=== PATIENT | female | born 2000 | race Caucasian/White ===

== ENCOUNTER 2023-05-02 12:34 | Outpatient (OUT) | payer OTHER, SELFPAY ==
--- NOTE | 2023-05-02 12:35 | US_ITS ---
[place] [id number] Patient Name: TEE DESAI MRN: [id number] date: 2000 Sex: F Assigned Patient Location: [facility] Current Patient Location: [facility] Accession/Order Number: [id number] Exam Date: 05/02/2023 12:36 Report Date: 05/02/2023 13:36 At the request of: ELSI LOZANO Procedure: US OB transvaginal EXAMINATION: US OB transvaginal HISTORY: MISSED MENSES COMPARISON: No relevant comparison available. FINDINGS: [place] intrauterine gestation Gestational sac: 3.52 cm, 8 weeks 4 days CRL: 1.74 cm, 8 weeks 1 day Yolk sac: 2.5 mm Heart rate: 167 bpm Uterus is retroverted retroflexed. Area of hyperechogenicity adjacent to the gestational sacr measuring 2.1 x 0.7 cm The ovaries are normal in appearance Cervix: Closed, 4 cm Clinical age: 8 weeks 1 day Clinical MONIQUE: 12/11/2023 Ultrasound age: 8 weeks 1 day Ultrasound MONIQUE: 12/11/2023 US/US OB transvaginal IMPRESSION: Subchorionic hematoma Viable intrauterine gestation measuring 8 weeks 1 day Electronically authenticated by: CHRISTIAN KATE Date: 05/02/2023 13:36
== END 2023-05-02 12:35 | disposition home or self-care (01) ==
LOC: NOMS 12:34
PROVIDERS: Visit Provider Obstetrics & Gynecology
DX: O43.891 Other placental disorders, first trimester (principal); Z3A.08 8 weeks gestation of pregnancy
CPT/HCPCS: 76817

== ENCOUNTER 2023-05-17 13:19 | Outpatient (OUT) | payer OTHER, SELFPAY ==
[2023-05-17 15:00] LABS: Basophils Percent Auto 0.3 % (0.2-2.0); Eosinophils Absolute Auto 0.1 10^3/uL (0.0-0.7); Eosinophils Percent Auto 0.5 % (0.9-7.0); Hematocrit 38.6 % (36.0-48.0); Hemoglobin 12.3 g/dL (12.0-16.0); Immature Granulocytes Abs Auto 0.02 10^3/uL (0.00-0.03); Immature Granulocytes Pct Auto 0.2 % (0.0-0.5); Lymphocytes Absolute Auto 3.1 10^3/uL (1.2-3.8); Lymphocytes Percent Auto 32.8 % (20.5-60.0); Mean Corpuscular HGB Conc 31.9 g/dL (29.9-35.2); Mean Corpuscular Hemoglobin 28.6 pg (26.7-34.0); Mean Corpuscular Volume 89.8 fL (81.0-99.0); Mean Platelet Volume 10.7 fL (9.5-13.5); Monocytes Absolute Auto 0.7 10^3/uL (0.3-0.8); Monocytes Percent Auto 7.7 % (1.7-12.0); Neutrophils Absolute Auto 5.4 10^3/uL (1.4-6.5); Neutrophils Percent Auto 58.5 % (43.0-75.0); Platelet Count 211 10^3/uL (150-450); Red Cell Distribution Width 12.2 % (11.0-15.0); White Blood Count 9.3 10^3/uL (4.0-11.0)
[2023-05-17 15:08] LABS: Thyroid Stimulating Hormone 0.026 uIU/mL (0.358-3.740)
[2023-05-17 15:27] LABS: Estimated Average Glucose 105 mg/dL; Glycohemoglobin A1C 5.3 % (4.5-6.2)
[2023-05-18 08:11] LABS: HIV Ab/p24 Ag Screen Non Reactive (Non Reactive)
[2023-05-18 09:11] LABS: HBsAg Screen Negative (Negative)
[2023-05-18 10:11] LABS: Rapid Plasma Reagin, Quant Non Reactive titer (NonRea<1:1); Rubella Antibodies, IgG 1.61 index (Immune >0.99)
[2023-05-18 13:08] LABS: HCV Ab Non Reactive (Non Reactive)
== END 2023-05-17 13:20 | disposition home or self-care (01) ==
PROVIDERS: Visit Provider Obstetrics & Gynecology
DX: N92.6 Irregular menstruation, unspecified (principal); Z36.0 Encounter for antenatal screening for chromosomal anomalies
CPT/HCPCS: 36415; 83036; 84443; 85025; 86592; 86762; 86803; 86850; 86900; 86901; 87086; 87340; 87389

== ENCOUNTER 2023-05-28 10:04 | Outpatient (OUT) | payer OTHER, SELFPAY ==
--- OUTSIDE RECORDS SUMMARY | 2023-05-28 10:18 | XMS_ITS | CCD ---
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 Name Role Phone NON STAFF Primary Care Provider LAURA Kraft Emergency Provider NICOLE Ricci Emergency Provider DAPHNIE ., DR ALEXANDRE Attending Unavailabl e KARASIK ., DR ALEXANDRE Admitting Unavailabl [facility] Unava ilable KARASIK ., DR ALEXANDRE Consulting Unavailabl e LAVINIA, DR CHRISTIAN Doyle Consulting Unavailable KARASIK ., DR ALEXANDRE Consulting Unavailabl e KARASIK ., DR ALEXANDRE Attending Unavailabl e [facility] Unava ilable KARASIK ., DR ALEXANDRE Admitting Unavailabl e ANGELA SCOTT Consulting Unavailable DINA, DR ANA Dennis Attending Unavailable DINA, DR ANA Dennis Admitting Unavailable [facility] Unava ilable DINA, DR ANA Dennis Consulting Unavailable KILO ., MR CUADRA Consulting Unavailable KARASIK ., DR ALEXANDRE Attending Unavailabl e [facility] Unava ilable KARASIK ., DR ALEXANDRE Admitting Unavailabl e KARASIK ., DR ALEXANDRE Attending Unavailabl e [facility] Unava ilable KARASIK ., DR ALEXANDRE Admitting Unavailabl e KARASIK ., DR ALEXANDRE Consulting Unavailabl e JOANNE HUDSON Consulting Unavailable GAVIN ATKINS Consulting Unavailable [facility] Unava ilable KARASIK ., DR ALEXANDRE Attending Unavailabl e KARASIK ., DR ALEXANDRE Admitting Unavailabl e KARASIK ., DR ALEXANDRE Consulting Unavailabl e KARASIK ., DR ALEXANDRE Attending Unavailabl e KARASIK ., DR ALEXANDRE Admitting Unavailabl e KARASIK ., DR ALEXANDRE Consulting Unavailabl e KARASIK ., DR ALEXANDRE Attending Unavailabl e KARASIK ., DR ALEXANDRE Admitting Unavailabl e [facility], DR CHRISTIAN Doyle Consulting Unavailable KARASIK ., DR ALEXANDRE Attending Unavailabl e [facility] Unava ilable KARASIK ., DR ALEXANDRE Admitting Unavailabl e KARASIK ., DR ALEXANDRE Consulting Unavailabl e ZIEBER, ANGELA Dennis Consulting Unavailable KARASIK ., DR ALEXANDRE Attending Unavailabl e KARASIK ., DR ALEXANDRE Admitting Unavailabl e [facility] Unava ilable KARASIK ., DR ALEXANDRE Consulting Unavailabl e KARASIK ., DR ALEXANDRE Consulting Unavailabl e KARASIK ., DR ALEXANDRE Attending Unavailabl e [facility] Unava ilable KARASIK ., DR ALEXANDRE Admitting Unavailabl e [facility], DR CHRISTIAN Doyle Consulting Unavailable REQUEST, DR TYSON LISTED Consulting Unavaila ble [facility] Primary Care Provider Unavailable Primary Care Provider Unavailabl e Martin PAC Errol N Attending Unavailable Martin PAC, Errol Maldonado Admitting Unavailable Oneil Salomon Admitting Unavaila ble Oneil Salomon Attending Unavaila ble ROBERT MARRERO Primary Care Unavailable Provider, None Primary Care Unavailable Nelson Sharma Admitting Unavailable Nelson Sharma Attending Unavailable Alaina Matta CNM Attending Unavailable Provider, None Primary Care Unavailable Alaina Matta CNM Admitting Unavailable Adamaris Jaeger PA-C Attending Unavailable Provider, None Primary Care Unavailable Heide SANCHEZ, Adamaris E Admitting Unavailable Provider, None Primary Care Unavailable Anusha Palomo Admitting Unavailable Anusha Palomo Attending Unavailable Tom Smith Admitting Unavailab Tom Canas Attending Unavailab le Provider, Unlisted Primary Care Unavailable Yassine Maldonado Admitting Unavailable Yassine Maldonado Attending Unavailable ROBERT MARRERO R Primary Care Unavailable Mamie Moore Admitting Unavailab Mamie Menchaca Attending Unavailab ROBERT Montes De [place] Primary Care Unavailable Yassine Maldonado Admitting Unavailable Yassine Maldonado Attending Unavailable ROBERT MARRERO Primary Care Unavailable DORA JASSO Admitting Unavailable DORA JASSO Attending Unavailable Allergies Allergy Classification Reported Allergen(s) Allergy Type Date of Onset Reaction(s) Facility (1 source) Alfentanil Drug Allergy [facility] Repository (1 source) Azithromycin Drug Allergy [facility] Repository (4 sources) Adhesive agent Propensity to adverse reactions to drug 3 [facility] (6 sources) Azithromycin Drug Allergy 2 [facility] (2 sources) Macrolides And Ketolides Drug Allergy 4 Unknown [facility] (2 sources) Wound Dressing Adhesive Drug Allergy 4 [facility] (1 source) Adhesive bandage; Translations: [Adhesive Bandage] Propensity to adverse reactions (disorder) [facility] Repository (1 source) Azithromycin; Translations: [Zithromax] Drug Allergy [facility] Repository Medications Current Medications Medication Drug Class(es) Dates Sig (Normalized) Sig (Original) [id number] 200 actuat albuterol 0.09 mg/actuat metered dose inhaler (4 sources) beta2-Adrenergic Agonist take 2 puff(s) by inhalation every six hours as needed for wheezing albuterol (PROVENTIL HFA;VENTOLIN HFA) 90 mcg/actuation inhaler Inhale 2 puffs every 6 (six) hours as needed for wheezing. 0 Active amoxicillin 500 mg oral tablet (4 sources) Penicillin-class Antibacterial take 1 tablet by mouth in the morning, then take 1 tablet by mouth at bedtime amoxicillin (AMOXIL) 500 MG tablet Indications: upper respiratory infection Take 1 tablet (500 mg total) by mouth in the morning and 1 tablet (500 mg total) before bedtime. Indications: a common cold. 0 Active busPIRone hydrochloride 10 mg oral tablet (2 sources) busPIRone (Buspa r) 10 MG tablet every 12 (twelve) hours 0 Active doxylamine succinate 25 mg oral tablet (3 sources) Start: 04-05-2023 End: 05-05-2023 take 1 tablet by mouth once daily as needed for nausea doxylamine (UNISOM) 25 mg tablet Indications: Nausea and vomiting during Take 1 tablet (25 mg total) by mouth nightly as needed for sleep or nausea for up to 30 days. 30 tablet 2 04/05/2023 05/05/2023 Active folic acid 1 mg oral tablet (6 sources) Start: 03-06-2023 folic acid (Folvite) 1 MG tablet 0 Refill(s) 0 03/06/2023 Active naproxen 500 mg oral tablet (1 source) Nonsteroidal Anti-inflammatory Drug Start: 05-15-2021 take 1 tablet by mouth twice daily Naproxen (Naprosyn) 500 mg tablet Active 500 MG PO Twice daily May 15, 2021 9:24pm ondansetron 4 mg disintegrating oral tablet (2 sources) Serotonin-3 Receptor Antagonist Start: 04-23-2023 End: 05-23-2023 take 1 tablet by mouth every six hours as needed for nausea and vomiting and nausea and nausea ondansetron ODT (Zofran-ODT) 4 MG disintegrating tablet Indications: Nausea Take 1 tablet (4 mg) by mouth every 6 (six) hours if needed for nausea or vomiting 30 tablet 2 04/23/2023 05/23/2023 Active 25/iron fum/folic/dha (-1 ORAL) (4 sources) 25/iron fum/folic/dha (-1 ORAL) Take by mouth. 0 Active Progesterone 200 MG suppository (2 sources) Start: 05-02-2023 Progesterone 200 MG suppository Indications: H/O miscarriage, currently , first trimester Insert 1 suppository into the vagina at bedtime 30 suppository 3 05/02/2023 Active pyridoxine hydrochloride 25 mg oral tablet (5 sources) Start: 04-05-2023 End: 05-05-2023 take 1 tablet by mouth four times daily at mealtime pyridoxine, vitamin B6, (B-6) 25 mg tablet Indications: Nausea and vomiting during Take 1 tablet (25 mg total) by mouth 4 (four) times a day with meals and nightly for 30 days. 150 tablet 2 04/05/2023 05/05/2023 Active Problems Active Problems Problem Classification Problem Date Documented Da te Episodic/Chronic Menstrual disorders (3 sources) Irregular menstruation, unspecified; Translations: [IRREGULAR MENSTRUATION UNSPECIFIED] Onset: 08-08-2022 Chronic Other complications of ; puerperium affecting management of mother (4 sources) Retained portions of placenta and membranes, without hemorrhage; Translations: [RETAIN PORTION PLCNTA MEMB NO HEMOR] Onset: 06-02-2022 Episodic Other complications of (5 sources) Missed ; Translations: [MISSED ] Onset: 05-17-2022 Episodic Other complications of (1 source) Nausea and vomiting; Translations: [Vomiting of , unspecified] 04-05-2023 Episodic Other and delivery including normal (7 sources) Encounter for supervision of normal , unspecified, first trimester; Translations: [Encounter for supervision of normal , unspecified, second trimester] Onset: 04-19-2022 Episodic Sprains and strains (1 source) Sprain of ankle; Translations: [Sprain of unspecified ligament of unspecified ankle, initial encounter] 07-18-2021 Episodic Superficial injury; contusion (1 source) Contusion of knee; Translations: [Contusion of right knee, initial encounter] 05-15-2021 Episodic Past or Other Problems Problem Classification Problem Date Documented Date Episodic/Chronic Abdominal pain (4 sources) Pelvic and perineal pain; Translations: [PELVIC AND PERINEAL PAIN] Onset: 10-17-2021 Episodic Esophageal disorders (1 source) Gastro-esophageal laceration-hemorrhag e syndrome; Translations: [GASTRO-ESOPHAGEAL LAC-HEMORR SYND] Onset: 04-04-2022 Episodic Immunizations and screening for infectious disease (1 source) Contact with and (suspected) exposure to infections with a predominantly sexual mode of transmission; Translations: [CONTCT W EXPOS INFECT SEXUAL TRNSMS] Onset: 04-26-2022 Episodic Other complications of (4 sources) Mild hyperemesis gravidarum; Translations: [MILD HYPEREMESIS GRAVIDARUM] Onset: 04-02-2022 Episodic Other complications of (1 source) Diseases of the digestive system complicating , first trimester; Translations: [DZ DIGESTIVE SYS COMP PREG 1ST TRI] Onset: 04-04-2022 Episodic Residual codes; unclassified (1 source) 8 weeks gestation of ; Translations: [8 WEEKS GESTATION OF ] Onset: 04-04-2022 Episodic Residual codes; unclassified (1 source) Less than 8 weeks gestation of ; Translations: [< 8 WEEKS GESTATION ] Onset: 04-05-2022 Episodic Results Test Name Value Interpretation Reference Range Facility .QC SARS-CoV-2 (COVID-19)/Fl u/RSV (GeneXpert)on 05-26-2023 Internal Control Pass Normal [facility] Comment on above: Order Comment: Order ed by Radha.[[email or web address]] Performed By: #### 1 [id number] #### [facility] (DEFAULT) [address] [place] [id number] COVID/Flu/RSV (GeneXpert)on 05-26-2023 Flu A (GXpert COVFLURSV) Negative Normal Negative [facility] Comment on above: Performed By: #### 1 [id number] #### [facility] (DEFAULT) [address] [place] [address] 34314 Flu B (GXpert COVFLURSV) Negative Normal Negative [facility] Comment on above: Performed By: #### 1 [id number] #### [facility] (DEFAULT) [address] [place] [address] 25639 RSV (GXpert COVFLURSV) Negative Normal Negative [facility] Comment on above: Performed By: #### 1 [id number] #### [facility] (DEFAULT) [address] [place] [address] 33238 SARS-CoV-2 (COVID-19) RNA MILY+probe Ql (Unsp spec) Negative Normal Negative [facility] Comment on above: Result Comment: Perf ormed by PCR methodology. Performed By: #### 1 [id number], [id number] #### [facility] (DEFAULT) [address] [place] [address] ED Clinical Summaryon 2023 ED Clinical Summary [facility] - Emergency Department [address] [place] [address] ED Clinical Summary PERSON INFORMATION Name: GILBERT, LIA SONJA Age: 22 Years Sex: FEMALE : 2000 MRN: Acct#: Visit Reason: Diarrhea; Fever; Headache; Throat pain - Adult; Body aches; HEADACHE, FEVER, BODY ACHES Arrival: 05/26/2023 17:02:55 Discharge: 05/26/2023 18:57:00 LOS: 000 01:55 Check In: 05/26/2023 17:02:55 Checkout:05/26/2023 18:57:00 Address: [address] [place] [address] PCP: ROBERT MARRERO PROVIDER INFORMATION Provider Role Assigned Unassigned Yassine Maldonado MD ED Provider 05/26/2023 17:04:17 [place] CLASSROOM COORDINATOR Nurse 05/26/2023 17:19:42 VITALS INFORMATION Vital Sign Triage Latest Temperature Tympanic Temperature Temporal Artery Pulse Rate O2 Sat 97 % 97 % Respiratory Rate 16 br/min 16 br/min Blood Pressure /71 mmHg /71 mmHg MEDICAL INFORMATION Medications Given: Allergy Information: Adhesive Bandage; Zithromax PHYSICIAN DOCUMENTATION DISCHARGE INFORMATION: Discharge Disposition: Home Discharge Location: Home PATIENT EDUCATION INFORMATION Instructions: Hypertension, Adult, Kxjm-[id number]; Nausea and Vomiting, Adult, Fiql-ca-Zehc Follow-Up: With: Address: When: ROBERT MARRERO [address] [place] [address] Within 3 to 5 days DIAGNOSIS: 1:Nausea vomiting and diarrhea; 2:Elevated blood pressure reading; Diarrhea, unspecified Patient Understands: Yes - Patient/family/careg iver verbalizes understanding of instructions given Comment: Normal [facility] ED Patient Summaryon 024 ED Patient Summary [facility] - Emergency Department [address] [place] [address] PATIENT DISCHARGE INSTRUCTIONS Patient Information Name: LIA DESAI Age: 22 Years Date of : 2000 Reason For Visit: Diarrhea; Fever; Headache; Throat pain - Adult; Body aches; HEADACHE, FEVER, BODY ACHES Arrival Time: 05/26/2023 17:02:55 Primary Care Physician: ROBERT MARRERO Attending Physician: Yassine Maldonado MD Comment: Visit Diagnosis: Diagnoses This Visit Body aches ([id number]) Diarrhea ([id number]) Diarrhea, unspecified (R19.7) Elevated blood pressure reading (R03.0) Fever ([id number]) Headache ([id number]) Nausea vomiting and diarrhea (R11.2) Throat pain - Adult ([id number]) The Pharmacy at [facility] is open Saturday through Saturday from 9A to 6P and Saturday and Saturday from 9A to 5P Prescription Information: If you have been given a prescription for narcotics, seek immediate medical attention if you have any difficulty breathing or any sudden status changes such as confusion and sleepiness. If you or anyone you know is experiencing suicidal thoughts, mental health, alcohol and/or drug addiction problems; contact the [facility] 29/10 Crisis Hotline -Text 9YLOF cv [id number]. If you received any narcotics, sedation, or any other medication that causes drowsiness for the next 24 hours, unless otherwise directed: ? Do not drive a car. ? Do not operate machinery such as power tools, lawn mowers, drills, sewing machines, or stoves ? Avoid alcoholic beverages and drugs for allergies, nerves, or sleep ? Do not make important personal or business decisions or sign any legal documents With: Address: When: ROBERT MARRERO [address] [place], [place] [id number] Within 3 to 5 days Medication Information: The exam and treatment you received today in the [facility] Emergency Department were for an urgent problem and are not intended as complete care. It is important for you to follow up with a doctor, nurse practitioner, or physician?s general office assistant for ongoing care. If your symptoms become worse or you do not improve as expected and you are unable to reach your usual health care provider, you should return to the Emergency Department, we are available 24 hours a day. For those patients who have received Radiology results, the interpretation of your X-ray as given to you by our Emergency Department physician is only a preliminary report. The Radiologist will review your films and if there is a change in the diagnosis you will be notified by phone. Please make sure you have provided a working phone number so we can reach you if necessary. In the event that you had a lab culture while you were a patient in the Emergency Department, you will be notified by phone if there is a need to change your antibiotic. Please make sure you have provided a working phone number so we can reach you if necessary. [facility] Emergency Department has provided you with a complete list of medications post discharge. Please inform your chief construction inspector/provider of your visit and for further instruction on these medications. Any specific questions regarding your chronic medications and dosages should be discussed with your primary care physician(s) and/or pharmacist. Additional medications on your home medication list not specifically addressed. Please contact the ordering physician if you have questions about these medications. folic acid (folic acid 1 mg oral tablet) TAKE 1 TABLET BY MOUTH IN THE MORNING. multivitamin, (Multivitamin) 1 tab Oral (given by mouth) every day. ondansetron (ondansetron 4 mg oral tablet, disintegrating) 1 tab(s) Oral (given by mouth) once. Refills: 1. progesterone (progesterone compounding powder) pyridoxine (pyridoxine 25 mg oral tablet) TAKE 1 TABLET BY MOUTH 4 TIMES DAILY WITH MEALS AND NIGHTLY. Visit Information Allergies: Substance Reaction Symptoms Type Comments Zithromax Drug Adhesive Bandage Other Vital Signs: Vitals and Measurements this Visit (last charted value for your 05/26/2023 visit) Vital Signs This Visit Temperature Oral: 37.9 DegC Heart Rate Monitored: 111 bpm Respiratory Rate: 16 br/min Systolic Blood Pressure: 123 mmHg Diastolic Blood Pressure: 71 mmHg SpO2: 97 % Oxygen Therapy: Room air Measurements This Visit Height/Length Measured: 170.18 cm Weight Measured: 115.21 kg Weight Dosin.210 kg Body Mass Index: 39.78 kg/m2 Problems List: Problem Onset Comments Acute depression Anxiety Chronic post-traumatic stress disorder (PTSD) Patient Education Hypertension, Adult Blood pressure 123/71 Your blood pressure was noted to be elevated here in the emergency room. Monitor your blood pressure an (more content not included)... Normal [facility] Strep Aon 05-26-2023 Strep procedure control Pass Normal [facility] Comment on above: Performed By: #### 1 [id number], [id number] #### [facility] (DEFAULT) [address] [place] [address] Streptococcus A Negative Normal Negative [facility] Comment on above: Performed By: #### 1 [id number], [id number] #### [facility] (DEFAULT) [address] [place] [address] Coding Summaryon 05-20-2023 Coding Summary HTMLBase 64 MrjykbgyAQj7yFn+PGhl YWQ+EX4SLIPrO42yfUWz uV5dC3CKYNgWMmbrAZTG GGwZMyPkqcPmWZ5ihXUq ZXJu IC8+SV1cFEDrCibgmJYl j3V2eTB3G25czs3cDRoz iJK7FMKmQlZkjmzsh6jm lJk9OBdyXdwkMwWk APNorV57HIN4iQ53Bs97 sNSmfMGoq2puxBj7PdFh VZLiNER5wCisIXuqv1Zs YSVxZ39csKBtt3Q3 IGNvbGxhcHNlOyBlbXB0 hL7kKEyjmvykw6mhwtvw Fql1kc42sIOpu6A0fKD8 A7DnhtW3BZAqyWAg ZvwnuNDGdK2leglby3zv jvssAiMlRJItNAi9AEx7 PEKljSquJbQtZF65ZLC8 SCJcveVkC7RjZDHr aFjsDtM0o7E9Qe0XG4VJ ZlzzX8NCAZEVFWjqbJB+ DI63ap57J8LtLqfoKzh7 CZJdCZZ2fKZ0mF0w NBNeSRvil7H9zMV8B0Ak zqHage2px5bcRBDaDAss E93fgNUlv3H7KCEtwCP2 GHImwFstShOelC27 Oyc+GLJepMdlz3LqSfnj n1myl7aowLt5QmqkJXLa qwDqoGepYIP4x1OyJx5k JAZysGT5cBO7hR9r VeEwJdA5PBchB067WgOd mWMuBakaH50lS8EutUC+ PSVbCrw7BAZizTmeIX5d W2CmOLFolduyzVQn iAtnFH9jWGVttykaXLFe bA8lPNDoN2n6NqPaHhD8 XUqtL3SfYGJmytqhYs27 lU0eXnHjVkL7LZan J8ExnhF3ZDBnaTViTIhv LDY4Q44bz5M2RSQwSGHp HDU9yMS3aM4bnFvxuebu bGVmdDsgdmVydGlj SBboGNhzF140ROPxmOzz PkNvZGluZyBEYXRlOiAg MDIvMTIvMjAyNDwvdGQ+ XLNfQMD9gHawKRWc kBVlRJkxFq8qhKuouZqy AY3xDEHnijfeAQVehK6i RIYtwSHypWmkUY5tQFDo fkefx807YoTuHDL6 MNRszATiG2NtdZ8hYzXb YJDgVSUuG5ZamOKbZQlb R742UYquZmE3MXIpmwVq V7ToWXNvhDkqSdL7 z1A5Mi0Bw7JbayoaG8Go tYVgYiLmPrwvYXb2E3Zs PjwvdHI+LT56FFUnCN33 GMt2UVX0zMxaTFfw MUHaD2BorQ2tYpYdGYBa ZGRkOyc+PHRhYmxlIHdp ZHRoPScxMDAlJyBzdHls AV4xUf7pPWQgFUEm zLnocDUaOvVfh6toHHWz ENpeYG4baOekZ8BkpWI6 BFQae0i9Lr63G40iG0Kh dXA+HEOmrTK0jES5 pY8oQdOfVjK7BBckZ649 BxJzlAWuRshye2amv8fa tTd1NlH8GTHiveMtwBmt KAR3q9DkXp36L04v IHdpZHRoPSIxNSUiIHZh zFkckb1bvR8wIf0+PGNv zDT1dSL2bM0tMaNkRsG2 POexZ400BpPyyIIw Jjmwb4ttt3vsqPp6KmUy NYZgghAghSryXCQ8v9Or Nb41C7VqbIsnf7LaHfs2 uy27jTTuq0Z9sAG5 D9UyJIVgrkljjTWurOuc QD5vFTVndlpfINKgqX3n PRVgA9i5AtWbUdA5UGuy W2GxqrY6UOBlmHUb GECjfXZUkM8rwcpeh4zt knwwOnUoEWLlYAs3NHz4 FRRrpElfBvLhJTP7MtY9 RRR0rWQdfE8qwFyh szukmK3rDps+JDV2jRYa kFVMDU1gHfmagLT+PHRk LIL1nMipDMgcLNCbaX1b GBDvE4x6UwAuUiR4 WTjtH8AqdzR4TMQbtPOy VWRmbEBQjC0hzhecj7kj ddjhZqPqGGQsYEv2WFv4 LWFsaWduOiBsZWZ0 NfV5DOZ2oZLihE6zvTuw ztfgjQ8xYrq+QmlydGgg ZJN5HFf0L3QiBnt4TVHt xKgkRN4kzWTwYVbu Xy2fuIqiwBdkCG5rYJGi wtshq532DhDiy6gyXQLp mURgRYvzSSA8C14hz5W0 CPWmCOTiBRV7nPS5 mQ0lmMksjblscBTrfFnp ptCflZcoTPfoLWkwB404 QPUstKmoOpJsYVa6Y9Pa Vfc2VHVogDisOB6i aPRfPZqjKa3rsJlfqVau WI3vBLTxpmwss248KwCw q8iwUUGoxRHmFUdhMVF3 S61cb6Z2IXWmDZDm YRJ5aUR1kC7uoBzyrekb bGVmdDsgdmVydGljYWwt VGwwC610NGNmxPyeUkSm rSo0L9AaLie9LIGg jNhoCI3ulWPoPPkqUc5g eKyofRqgKY8cQZNrvyur v628ImRvl3rmNZCrbPTn CLyzOIQ9S22cx6Q8 ZWQfGWPmTBY2xZX7gJ6d bGlnbjogbGVmdDsgdmVy lGeeDRffQVcwW431UCHm cDsnPlBhdGllbnQg CUufJPz9A8BnYmjllDZ+ SM20XMIdNW02rLHwwMVy w7gacZy9PiBhAIWeAPI6 gZasIAusv0NaCZUu J02skKXga9U5GRKmpAuv zQTpCdSepVG7pZ2aJQbu olavb2wfwddlJzrko5gl eh69iQ22L07vXXhl ZHRoPSIzMCUiIHZhbGln wl3ljE2mAs4+PGNvbCB3 kUK2eD7gDEJxOxM4QSle R226BuKwjNEkEqjk e3vao1vfrPm2RxB5MEAy stEfzHqcRUB9n8VbSe85 V93pCLgmQNWfQHZwUIKm DZXdcLsejv2ukS4c Ii8+APNouTY7gIW5gJ2m XnVkQdF7WGuqR424OsAf tKUlLogxN68xM8VbiLD+ ZWMoEwb7DQOihRfn BN3kqYNiOZehTe1eSAM9 GdXsUaJkKMdaQ1PcNHLa wrbiuuqfpUL8BBKaLUQi tS70Xo0tlQibRSZx pLYGqQ9jphyde4hyxtlw GzRhMLUxEHq2VUx0KEXt wYxgXyEcZOU8RhH8CFG7 xUJntE0beDmntwyc rL5cE5QzCHDropmgKj39 qY1aIhGcHiW3FFhbYtj+ Y9qVVrGYDTqvW4eOUUPW FOkWRB0CYTljyZY+ JYVsVOP4wTrpUUgbZBRd kS7eOACiW4s7MjEhHbE1 VUyoR1HbUSExkelxPy95 fF0gOvPjGdX8FElw V8HqcbS9ZTQbiSYxYVmt JZE1M37xj8Z9WEQbETGv AGE0nMJ9jY2ocVhkwgwv bGVmdDsgdmVydGlj RBpoEArvO010EKUrjBih WaP5XtEzEiGpCFE6V6Nn Jvb0GUAcySibYJ0hfDJx SQgsAf0cqKewfOgv OS3lKVOkflyjGCQwdL7z OCCjyAWniZkeCC6mHQXz wsecx425GcNaDHB5HUCj vQDvU2ZmvU0aUsFp WCCxPDDvZ4NtkEPxJKvd W629CLxdZkU0WBYwdoUo N6DpOJOlvHxtVwI3i1J9 Kn3pDDDZXCZkowez dGQ+GPXbFGK8pXloBPox MANdzH4mYRNcH1t3ZsOc LhD6TIukI3LrPSQhzhnj Di94yY0jLlSpTgA0 NMgzK4IqkhM6TXZcuMCp XXhtCRK3E79yq3B1PKXk KQDfPTM6gVU3fI5zqFwr bjogbGVmdDsgdmVy wGcxPAnvJHncJ031CHFv cDsnPkZFTUFMRTwvdGQ+ SOFwIRA5gElfMFmrLRPr uL0aSXViE2g1WsTt GtZ2UWzdC4TbJMUsgord Yt85fM6wDkYhXmO8ESjm I1EmapH9ACEvrXVqHTiy OGL4N66dt1L3DBIa LDJwSKW6jOR9uL6mnYae bjogbGVmdDsgdmVydGlj QAatEMrmH093DNEulHob ZxFgYBVwMS2asBnp dGQ+ZA70ou31U6LzGife Kyk2IIJqBJI8uKX5vR7o WUGdSItho3S9hUP7P0Rt axVrjd8eb0pnFXEx TDxtG36yyGAqy9W7UWLy uWE0LJJmfSzqJkLcmY96 Oyc+FALggOtnx5ZbQvvq p4drq5qomJu9HyBf HTUputOwaTrcPRJ0i7Xw Va11Z34sOIfePAAaOALg IRWqTYCjaAedyg2dyV6c Ii8+TSFecOU0lYO9 bB2kEhJjQjX9EDieP868 VlBgyOLhAidym3bdh2zv mMn3LeZuEEZqorXjqEev ETY9x6RzKc65J4Ef dSmme0OoPcs0gs11wGRh y0D6hKY4K7GmNQNaarqv jIDpwJorAP4gDGAysnps ROJkaO3xCVPoY2c3 IdSzFiK9FOvuG0WtgyP3 ZKHujURaVBSqlUHHyD4p kiyla4mwhoowSiNnFLOz ODd0UGl2GUIkdCix BqHrPPN8TaJ8OHC9fMPw yO8aiSjyhzioyI3tVvd+ GTw7b3ninNAhPT2waFJ1 UG34PR34hGPls8U7 lMH2P0OcCZIejceobcno aYI5PHJsEPTvfV47Ot3b qDyjVl1aDHIiWNK3XOWx qRUyW2BrqC1iCeKs QWNhKNEoY1EavDVhKTgy W830HYrmNzU8IEPithWi A3HwGJBuoLcjZpA6o4K4 Ce6CGA09TM03ZA48 uJQjv9R6bMX6L6MsAETn vyrijaqghQR1ZOHiXDAo xC83Df9wlFysYk3tGBVk AZZ3KNVjpWSlR2Ex qL0fEiBnUHZnVOJuJ7Zv fPQoNAvnC109IUueLgP9 BGMrqpGmN1CeYOQcoZjj TxW2p0Z5Tx1DSg00 LN07HN19rBSoy1S4fGX0 L0FkDJYkdvuggvmwdCQ1 GZPkXSUpxS33Vf1jgQmc Rs3sSERvTHL3BOGx sEDbS6LasY3dAeHpLSFa VJKcG7BfwIGzGObvG779 UForTmX2PISqdlUyP7Eb BDAwvUypUbZ7j2F8 Pf0VAScrgdy9Y0HnZwfn dHI+UP73QBCjKD72uKYn nBZsn2cyiIm1LgYrTBYn RNN6eNpnEGhax3Gh ZXI (more content not included)... Normal [facility] C Urineon 05-18-2023 C Urine Urine Culture ordered as a result of parameters set on specific urine dip and urine microsopic results. 15,000 cfu/ml Corynebacterium species (DIPTHEROIDS) Normal skin jonny isolated Normal [facility] Comment on above: Performed By: #### [id number] ####[facility] (DEFAULT)[address] [place] [address] ALL CBC WITH AUTO DIFFon BASOPHILS ABSOLUTE AUTO 0.0 [facility] Basophils/100 WBC (Bld) 0.3 % 0.2 - 2.0 % [facility] Eosinophils/100 WBC (Bld) 0.5 % Low 0.9 - 7.0 % [facility] [facility] Erythrocyte distribution width (RBC) [Ratio] 12.2 % 11.0 - 15.0 % [facility] Hematocrit (Bld) [Volume fraction] 38.6 % 36.0 - 48.0 % [facility] Hemoglobin (Bld) [Mass/Vol] 12.3 g/dL 12.0 - 16.0 g/dL [facility] IMMATURE GRANULOCYTES ABS AUTO 0.02 [facility] Immature granulocytes/100 WBC (Bld) 0.2 % 0.0 - 0.5 % [facility] Interpretation and review of laboratory results Abnormal [facility] LYMPHOCYTES ABSOLUTE AUTO 3.1 [facility] Lymphocytes/100 WBC (Bld) 32.8 % 20.5 - 60.0 % [facility] MCH (RBC) [Entitic mass] 28.6 pg 26.7 - 34.0 pg [facility] MCHC (RBC) [Mass/Vol] 31.9 g/dL 29.9 - 35.2 g/dL [facility] MCV (RBC) [Entitic vol] 89.8 fL 81.0 - 99.0 fL [facility] MONOCYTES ABSOLUTE AUTO 0.7 [facility] Monocytes/100 WBC (Bld) 7.7 % 1.7 - 12.0 % [facility] NEUTROPHILS ABSOLUTE AUTO 5.4 [facility] Neutrophils/100 WBC (Bld) 58.5 % 43.0 - 75.0 % [facility] Platelet mean volume (Bld) [Entitic vol] 10.7 fL 9.5 - 13.5 fL [facility] TB EO # 0.1 [facility] PLT 211 [facility] RBC 4.30 [facility] WBC 9.3 [facility] .Auto Diff 05-15-2023 Auto King % 8 % Normal 1-12 [facility] Comment on above: Performed By: #### 1 [id number], [id number], [id number], [id number] #### [facility] (DEFAULT) [address] [place] [address] Baso Abs# 0.1 x10 Normal 0.0-0.2 [facility] Comment on above: Performed By: #### 1 [id number], [id number], 3007620, [id number] #### [facility] (DEFAULT) [address] [place] [address] Basophils/100 WBC (Bld) 1.0 % Normal 0.2-2.0 [facility] Comment on above: Performed By: #### 1 [id number], [id number], 0312391, 73537968 #### [facility] (DEFAULT) [address] [place] [address] 60365 Eos Abs# 0.0 x10 Normal 0.0-0.4 [facility] Comment on above: Performed By: #### 1 [id number], 0658904459, 5167351, 06640813 #### [facility] (DEFAULT) [address] [place] [address] 20808 Eosinophils/100 WBC (Bld) 0.2 % Low 0.9-4.0 [facility] Comment on above: Performed By: #### 1 [id number], 6140902381, 2997665, 99531585 #### [facility] (DEFAULT) [address] [place] [address] 36034 Lymph Abs# 2.6 x10 Normal 1.3-2.9 [facility] Comment on above: Performed By: #### 1 [id number], [id number], 3583215, [id number] #### [facility] (DEFAULT) [address] [place] [address] 22748 Lymphocytes/100 WBC (Bld) 25 % Normal 14-48 [facility] Comment on above: Performed By: #### 1 [id number], [id number], 3539791, 76090328 #### [facility] (DEFAULT) [address] [place] [address] 08116 King Abs# 0.9 x10 High 0.0-0.8 [facility] Comment on above: Performed By: #### 1 [id number], 2213948861, 7515485, 65598390 #### [facility] (DEFAULT) [address] [place] [address] 51971 Neut Abs# 6.6 x10 Normal 1.5-9.2 [facility] Comment on above: Performed By: #### 1 [id number], [id number], 3589904, 29044345 #### [facility] (DEFAULT) [address] [place] [address] 24192 Neutrophils/100 WBC (Bld) 65 % Normal 44-88 [facility] Comment on above: Performed By: #### 1 [id number], [id number], 5546450, 91903776 #### [facility] (DEFAULT) [address] [place] [address] 43129 BMP Standardon 05-15-2023 eGFR Non AA >60 Invalid Interpretation Code [facility] Comment on above: Performed By: #### 1 [id number], [id number], 9990579, 00084792 #### [facility] (DEFAULT) [address] [place] [address] 47860 eGFR AA >60 Invalid Interpretation Code [facility] Comment on above: Performed By: #### 1 [id number], [id number], 4451436, 84669050 #### [facility] (DEFAULT) [address] [place] [address] 97262 Anion gap [Moles/Vol] 15.2 mmol/L Normal 5.0-19.0 [facility] Comment on above: Performed By: #### 1 [id number], 6904686502, 1906101, 64758799 #### [facility] (DEFAULT) [address] [place] [address] 46297 Calcium [Mass/Vol] 9.2 mg/dL Normal 8.9-10.3 [facility] Comment on above: Performed By: #### 1 [id number], 8761542367, 7681489, 47936186 #### [facility] (DEFAULT) [address] [place] [address] 83759 Chloride [Moles/Vol] 106 mmol/L Normal 101-111 [facility] Comment on above: Performed By: #### 1 [id number], [id number], 5927585, 68052266 #### [facility] (DEFAULT) [address] [place] [address] 67202 CO2 [Moles/Vol] 17 mmol/L Low 21-32 [facility] Comment on above: Performed By: #### 1 [id number], 8048085736, 2584796, 41440419 #### [facility] (DEFAULT) [address] [place] [address] 60573 Creatinine [Mass/Vol] 0.55 mg/dL Low 0.60-1.30 [facility] Comment on above: Performed By: #### 1 [id number], [id number], 9152295, 34520471 #### [facility] (DEFAULT) [address] [place] [address] 04449 Glucose [Mass/Vol] 75.0 mg/dL Normal 74.0-118.0 [facility] Comment on above: Performed By: #### 1 [id number], [id number], 0187014, 22213869 #### [facility] (DEFAULT) [address] [place] [address] Osmolality 266 mOsm/L Invalid Interpretation Code [facility] Comment on above: Performed By: #### 1 [id number], [id number], 9683225, 77344040 #### [facility] (DEFAULT) [address] [place] [address] 52260 Potassium [Moles/Vol] 4.2 mmol/L Normal 3.6-5.1 [facility] Comment on above: Performed By: #### 1 [id number], 8362108907, 0204481, 63694527 #### [facility] (DEFAULT) [address] [place] [address] 47586 Sodium [Moles/Vol] 134.0 mmol/L Low 136.0-144.0 [facility] Comment on above: Performed By: #### 1 [id number], 6567096139, 3711594, 79268762 #### [facility] (DEFAULT) [address] [place] [address] 43687 Urea nitrogen [Mass/Vol] 9 mg/dL Normal 8-26 [facility] Comment on above: Performed By: #### 1 [id number], 8755610992, 9754020, 60254209 #### [facility] (DEFAULT) [address] [place] [address] 91031 Urea nitrogen/Creatinine [Mass ratio] 16.3 mg/mg High 4.6-16.2 [facility] Comment on above: Performed By: #### 1 [id number], 4833060160, 3735357, 64904399 #### [facility] (DEFAULT) [address] [place] [address] Breakpoint Chem Normal [facility] Comment on above: Performed By: #### 1 [id number], 0636940300, 3300275, 83555109 #### [facility] (DEFAULT) [address] [place] [address] CBC w/ Auto Diffon 4 Erythrocyte distribution width (RBC) [Ratio] 12.9 % Normal 11.5-15.0 [facility] Comment on above: Performed By: #### 1 [id number], 5204677994, 9022616, 90393651 #### [facility] (DEFAULT) [address] [place] [address] Hematocrit (Bld) [Volume fraction] 39.2 % Normal 33.7-40.4 [facility] Comment on above: Performed By: #### 1 [id number], 2380750527, 7726225, 51027509 #### [facility] (DEFAULT) [address] [place] [address] Hemoglobin (Bld) [Mass/Vol] 13.4 g/dL Normal 11.3-15.9 [facility] Comment on above: Performed By: #### 1 [id number], 6463102173, 6200617, 59947184 #### [facility] (DEFAULT) [address] [place] [address] Man Diff? RBC Morph Only Invalid Interpretation Code [facility] Comment on above: Performed By: #### 1 [id number], [id number], 3827914, 77229882 #### [facility] (DEFAULT) [address] [place] [address] MCH (RBC) [Entitic mass] 29 pg Normal 24-34 [facility] Comment on above: Performed By: #### 1 [id number], 2000560486, 7077993, 23350495 #### [facility] (DEFAULT) [address] [place] [address] 13505 MCHC (RBC) [Mass/Vol] 34 g/dL Normal 26-37 [facility] Comment on above: Performed By: #### 1 [id number], 2239058603, 1451849, 53217448 #### [facility] (DEFAULT) [address] [place] [address] 24174 MCV (RBC) [Entitic vol] 84 fL Normal 81-100 [facility] Comment on above: Performed By: #### 1 [id number], 8249754110, 4121706, 70958513 #### [facility] (DEFAULT) [address] [place] [address] 58794 Platelet 228 x10 Normal 138-427 [facility] Comment on above: Performed By: #### 1 [id number], 7549465367, 3291005, 11309197 #### [facility] (DEFAULT) [address] [place] [address] 22924 Platelet mean volume (Bld) [Entitic vol] 8.7 fL Normal 6.3-10.2 [facility] Comment on above: Performed By: #### 1 [id number], 1418904712, 6513168, 26784903 #### [facility] (DEFAULT) [address] [place] [address] 68138 RBC 4.66 x10 Normal 3.70-5.30 [facility] Comment on above: Performed By: #### 1 [id number], 9278966082, 4400125, 85577486 #### [facility] (DEFAULT) [address] [place] [address] 95242 WBC 10.1 x10 Normal 3.5-10.5 [facility] Comment on above: Performed By: #### 1 [id number], [id number], 1231525, 60435074 #### [facility] (DEFAULT) [address] [place] [address] 23394 ED Clinical Summaryon 2023 ED Clinical Summary [facility] - Emergency Department [address] [place] [address] ED Clinical Summary PERSON INFORMATION Name: LIA DESAI Age: 22 Years Sex: FEMALE : 2000 MRN: Acct#: Visit Reason: Vomiting - ; 10 WEEKS , NAUSEA, VOMITING Arrival: 05/15/2023 13:59:38 Discharge: 05/15/2023 19:41:00 LOS: 000 05:42 Check In: 05/15/2023 13:59:38 Checkout:05/15/2023 19:41:00 Address: [address] [place] [address] PCP: ROBERT MARRERO PROVIDER INFORMATION Provider Role Assigned Unassigned Joelle Nava CLASSROOM COORDINATOR Nurse 05/15/2023 15:05:55 Mamie Moore MD ED Provider 05/15/2023 15:56:16 Chrissy Diego CLASSROOM COORDINATOR Nurse 05/15/2023 19:19:53 VITALS INFORMATION Vital Sign Triage Latest Temperature Tympanic Temperature Temporal Artery Pulse Rate O2 Sat 99 % 99 % Respiratory Rate 16 br/min 16 br/min Blood Pressure /90 mmHg /90 mmHg MEDICAL INFORMATION Medications Given: Medication Dose Route Lactated Ringers Injection intravenous solution 1,000 mL (Lactated Ringers Bolus 1000 mL 1,000 mL) 1000 mL Initial Volume 1000 mL/hr IV Left Hand ondansetron 4 mg IV Push Lactated Ringers Injection intravenous solution 1,000 mL 1000 mL Initial Volume 250 mL/hr IV Left Hand Allergy Information: Adhesive Bandage; Zithromax PHYSICIAN DOCUMENTATION DISCHARGE INFORMATION: Discharge Disposition: Home Discharge Location: Home PATIENT EDUCATION INFORMATION Instructions: Hyperemesis Gravidarum Follow-Up: With: Address: When: ROBERT MARRERO [address] [place] [address] [facility] (1) Within 3 to 5 days With: Address: When: Follow up with specialist Within 3 to 5 days Comments: Your EVENT PRODUCER DIAGNOSIS: 1:Hyperemesis of Patient Understands: Yes - Patient/family/careg iver verbalizes understanding of instructions given Comment: [facility] ED Note-Nursingon 05-15-2023 ED Note-Nursing PT. C/O nausea and vomiting. PT. is 10 weeks with her first child. PT. has prescribed Zofran but has been out of it for 1 week. Pt. is scheduled for a Zofran pump. Pt. states that she has not been able to keep any foods or fluids down. Pt. is A&O X4. PT. has a steady gait. Normal [facility] ED Patient Summaryon 024 ED Patient Summary [facility] - Emergency Department [address] [place] [address] PATIENT DISCHARGE INSTRUCTIONS Patient Information Name: LIA DESAI Age: 22 Years Date of : 2000 Reason For Visit: Vomiting - ; 10 WEEKS , NAUSEA, VOMITING Arrival Time: 05/15/2023 13:59:38 Primary Care Physician: ROBERT MARRERO Attending Physician: Mamie Moore MD Comment: Visit Diagnosis: Diagnoses This Visit Hyperemesis of (O21.0) Vomiting - ([id number]) The Pharmacy at [facility] is open Saturday through Saturday from 9A to 6P and Saturday and Saturday from 9A to 5P Prescription Information: If you have been given a prescription for narcotics, seek immediate medical attention if you have any difficulty breathing or any sudden status changes such as confusion and sleepiness. If you or anyone you know is experiencing suicidal thoughts, mental health, alcohol and/or drug addiction problems; contact the [facility] Recovery [facility] 29/10 Crisis Hotline -Text 4CUIP jc 894647. If you received any narcotics, sedation, or any other medication that causes drowsiness for the next 24 hours, unless otherwise directed: ? Do not drive a car. ? Do not operate machinery such as power tools, lawn mowers, drills, sewing machines, or stoves ? Avoid alcoholic beverages and drugs for allergies, nerves, or sleep ? Do not make important personal or business decisions or sign any legal documents With: Address: When: ROBERT MARRERO [address] [place] [address] Business (1) Within 3 to 5 days With: Address: When: Follow up with specialist Within 3 to 5 days Comments: Your EVENT PRODUCER Medication Information: The exam and treatment you received today in the [facility] Emergency Department were for an urgent problem and are not intended as complete care. It is important for you to follow up with a doctor, nurse practitioner, or physician?s general office assistant for ongoing care. If your symptoms become worse or you do not improve as expected and you are unable to reach your usual health care provider, you should return to the Emergency Department, we are available 24 hours a day. For those patients who have received Radiology results, the interpretation of your X-ray as given to you by our Emergency Department physician is only a preliminary report. The Radiologist will review your films and if there is a change in the diagnosis you will be notified by phone. Please make sure you have provided a working phone number so we can reach you if necessary. In the event that you had a lab culture while you were a patient in the Emergency Department, you will be notified by phone if there is a need to change your antibiotic. Please make sure you have provided a working phone number so we can reach you if necessary. [facility] Emergency Department has provided you with a complete list of medications post discharge. Please inform your chief construction inspector/provider of your visit and for further instruction on these medications. Any specific questions regarding your chronic medications and dosages should be discussed with your primary care physician(s) and/or pharmacist. Medications That Were Updated - Follow Below Instructions [id number] [place], [place] [id number], [phone] Updated: ondansetron (ondansetron 4 mg oral tablet, disintegrating) 1 tab(s) Oral (given by mouth) once. Refills: 1. Other Medications Updated: ondansetron (ondansetron 4 mg oral tablet, disintegrating) 1 tab(s) Oral (given by mouth) Every 8 hours (scheduled) as needed as needed for nausea/vomiting. Refills: 0. Medications to Continue That Have Not Changed Other Medications multivitamin, (Multivitamin) 1 tab Oral (given by mouth) every day. progesterone (progesterone compounding powder) Visit Information Allergies: Substance Reaction Symptoms Type Comments Zithromax Drug Adhesive Bandage Other Vital Signs: Vitals and Measurements this Visit (last charted value for your 05/15/2023 visit) Vital Signs This Visit Temperature Oral: 36.7 DegC Heart Rate Monitored: 81 bpm Respiratory Rate: 16 br/min Systolic Blood Pressure: 132 mmHg Diastolic Blood Pressure: 90 mmHg SpO2: 99 % Oxygen Therapy: Room air Measurements This Visit Height/Length Measured: 170.18 cm Weight Measured: 115.21 kg Weight Dosin.210 kg Body Mass Index: 39.78 kg/m2 Problems List: Problem Onset Comments Acute depression Anxiety Chronic post-traumatic stress disorder (PTSD) Patient Education Hyperemesis Gravidarum Hyperemesis gravidarum is a severe form of nausea and vomiting that happens during . Hyperemesis is worse than morning sickness. It may cause you to have nausea or vomiting all day for many days. It may keep you from eating and drinking abad (more content not included)... [facility] Morphologyon 05-15-2023 RBC morphology finding Nom (Bld) Normal [facility] Comment on above: Order Comment: Order added by Discern. Result Comment: some platelet clumping observed Performed By: #### 1 [id number], [id number], 6414026, [id number] #### [facility] (DEFAULT) [address] [place] [address] UA [id number] 05-15-2023 UA Amorph. 1+ [facility] Comment on above: Order Comment: Urina lysis Microscopic order added on by [employer] Expert Rules system. Performed By: #### 5 [id number], [id number], [id number] ####[facility] (DEFAULT)[address] [place] [address] UA Bacteria 1+ [facility] Comment on above: Order Comment: Urina lysis Microscopic order added on by [employer] Rules system. Performed By: #### 5 [id number], [id number], [id number] ####[facility] (DEFAULT)[address] [place] [address] UA Mucous 1+ Normal [facility] Comment on above: Order Comment: Urina lysis Microscopic order added on by [employer] Rules system. Performed By: #### 5 [id number], 3432466, [id number] ####[facility] (DEFAULT)[address] [place] [address] UA RBC 3-5 [facility] Comment on above: Order Comment: Urina lysis Microscopic order added on by Discern Expert Rules system. Performed By: #### 5 [id number], 1529496, [id number] ####[facility] (DEFAULT)[address] [place] [address] UA Squam Epi Moderate Normal [facility] Comment on above: Order Comment: Urina lysis Microscopic order added on by Discern Expert Rules system. Performed By: #### 5 [id number], 4659275, [id number] ####[facility] (DEFAULT)[address] [place] [address] UA WBC 5-10 [facility] Comment on above: Order Comment: Urina lysis Microscopic order added on by Discern Expert Rules system. Performed By: #### 5 [id number], 0314514, [id number] ####[facility] (DEFAULT)[address] [place] [address] UA w Culture if Ind Standard on 05-15-2023 Breakpoint UA [facility] Comment on above: Performed By: #### 5 [id number], 4384559, [id number] ####[facility] (DEFAULT)[address] [place] [address] Color (U) Yellow [facility] Comment on above: Performed By: #### 5 [id number], 7554405, [id number] ####[facility] (DEFAULT)[address] [place] [address] Culture? Indicated Invalid Interpretation Code [facility] Comment on above: Result Comment: Resu lt created by rule GL_MAGR_ADD_UA_CULT Result created by rule GL_MAGR_ADD_UA_CULT Result created by rule GL_MAGR_ADD_UA_CULT1 Result created by rule GL_MAGR_ADD_UA_CULT Performed By: #### 5 [id number], [id number], [id number] ####[facility] (DEFAULT)[address] [place] [address] Glucose (U) [Mass/Vol] Negative Normal [facility] Comment on above: Performed By: #### 5 [id number], 7469574, [id number] ####[facility] (DEFAULT)[address] [place] [address] Ketones Ql (U) >=80 Normal [facility] Comment on above: Performed By: #### 5 [id number], 4743926, [id number] ####[facility] (DEFAULT)[address] [place] [address] Micro? Indicated Invalid Interpretation Code [facility] Comment on above: Result Comment: Resu lt created by rule GL_MAGR_ADD_UA_MICRO Performed By: #### 5 [id number], 5055681, [id number] ####[facility] (DEFAULT)[address] [place] [address] UA Bilirubin MODERATE Abnormal [facility] Comment on above: Performed By: #### 5 [id number], 3507841, [id number] ####[facility] (DEFAULT)[address] [place] [address] UA Blood Negative Normal NEGATIVE [facility] Comment on above: Performed By: #### 5 [id number], 3056875, [id number] ####[facility] (DEFAULT)[address] [place] [address] UA Clarity SL CLOUDY Abnormal CLEAR [facility] Comment on above: Performed By: #### 5 [id number], 4702043, [id number] ####[facility] (DEFAULT)[address] [place] [address] UA Leuk Est Negative Normal NEGATIVE [facility] Comment on above: Performed By: #### 5 [id number], 0991813, [id number] ####[facility] (DEFAULT)[address] [place] [address] UA Nitrite Negative Normal NEGATIVE [facility] Comment on above: Performed By: #### 5 [id number], 0030345, [id number] ####[facility] (DEFAULT)[address] [place] [address] 56454 UA pH 6.5 Normal 5-8 [facility] Comment on above: Performed By: #### 5 [id number], 7490592, [id number] ####[facility] (DEFAULT)[address] [place] [address] 85624 UA Protein 30 Abnormal NEGATIVE [facility] Comment on above: Performed By: #### 5 [id number], 7576061, [id number] ####[facility] (DEFAULT)[address] [place] [address] UA Spec Grav >=1.030 Normal 1.001-1.035 [facility] Comment on above: Performed By: #### 5 [id number], 3998033, [id number] ####[facility] (DEFAULT)[address] [place] [address] 29418 UA Urobilinogen 1.0 mg/dL Normal 0.2-1.0 [facility] Comment on above: Performed By: #### 5 [id number], 5440967, [id number] ####[facility] (DEFAULT)[address] [place] [address] 13793 Urine Source Clean Catch Normal [facility] Comment on above: Performed By: #### 5 [id number], 6270568, [id number] ####[facility] (DEFAULT)[address] [place] [address]153 hCG Quantitativeon hCG Quantitative 258150.0 mIU/mL High 0.0-0.6 [facility] Comment on above: Performed By: #### 7 [id number] #### [facility] (DEFAULT) [address] [place] [address] Coding Summaryon 05-02-2023 Coding Summary HTMLBase 64 IzaypxyzGVo6oJi+PGhl YWQ+KS4XZNCnG31mtDAp eB2sF7WFHXbEPysnKHGN DHuDOgQedoIjCG8twEWm ZXJu IC8+HR5lCLSsBdsesTFp g4H7fRG6L77qrl9fTFje lGJ0VTXlCtMpbfuao3gt tQb3GBfhOhidAfEy NCDkeH03VKZ2xE60Fs94 qMAvjFZla3xxqQz1JqCg QVHrQZU5oDvrURgzn5Om DWClS29zkRSyp9Q9 IGNvbGxhcHNlOyBlbXB0 wN0mPJjpcchgp5lbxroq Lsj1eh69vYLpn6E0eRJ0 H2WmacU4MWExiIRx JwneoXTHyB5iyxxgx5xc nsgnXjVbDVSjRZq1MEq0 GJJhaLlrFoTlAO79TJN9 QNZkgxPdF5UpJYVk bOayGwM3o7T8Tj9UF6JY EilkZ0GGGWLKCDzcvJC+ TQ75xq46V4CtYgeyRns1 LWEkZBH8qFK7nG8w QZXbLUrgk4F9nWW5H2Lj dmSmzi4da5ffFOTmNChs U52wiVGgc6U1HJWgzKC9 TPFsiTrdKtMqdR56 Oyc+XSPcrEtxj3QfIvgt e3kxx0mnuAr0LnuwIHYk bsCxiDrsLFI7t4TsQz5j YWRdcMK0wIH7fR9q RfWeQwB6TDmgB467CnVh hYUlLedrG32zC3StwIC+ LWYbUvp9VNFicJmcKU5z E3UcWYGxftlwdHHi jFovKV3oBHEdkwrgSNGb kT5jZVTgU2d9YnGkZzP2 HAgfN3QfUXErjzzcHg17 eR6uJpHgKtG0WFvc G8HjidM9VOQthTHiOWko PGL8A87zi5A2UFKiQAYe GNR1oBR6qV4vlAhcxtlj bGVmdDsgdmVydGlj RAcaPWkoO281WTEfhCtn PkNvZGluZyBEYXRlOiAg MDEvMjUvMjAyNDwvdGQ+ RFDjEXC5kWdbLTDq uOTsJSmqYz8xqNiiaUto HO7xULAjwtlhYDGruP3l OXQfcUIwcZgkUI8iXNZp xceqr624PsVcVMP6 WJMbwTTzE2HzcA8eEuCy DMBoNTUwC3FsoFTsAKkt K388RJrtPaW9BNRfypYp M4CcVWPxlMviDjN1 r8K0Ij5Se1HggzfeG0Oc dFYwMfCzTloxTVi6C5Dq PjwvdHI+UX10PSCcUT79 DSq1KUG0cOyjBZgt RJLmG2CwlK1jTfGbEUWu ZGRkOyc+PHRhYmxlIHdp ZHRoPScxMDAlJyBzdHls UN1lPn9aZDLrMANd sWsmfFLiHlHyb9jaZMZa PWppAN8wdAizA3GpzJT5 VVNmn3v2Au98D92qM4Zj dXA+ZTEdmQV4rBT1 lO1uRvOvPfU9TPycR188 UiVjrJCwQsjpr9myg0pt qOo6OyH4YGSjrsUqbPep AWL0v6DrXj04O33y IHdpZHRoPSIxNSUiIHZh jOzuwm4vpD4pEj3+PGNv tSB0kNO3sF5gWyNxShY1 RIyxW368WeRggODr Erlpf5pdv4axbWh4QuBs RZMzbbLruFicQFL1y4Qt Tr58O1KicOmwg1MqUnt6 zd29lHDyz7D7uZE5 G4QlYERrbmmmkBPrtVpx QI8mUHHymhobMTFnoY7v PSOaR6t7FmNaGnH9MUsf G3IekzG7RGQrzKRc SBUzqOXDeD0chqytw9kg bwjkBcVpFGItQXl6XUm6 SBDbgXmgAwZbDUE9CoW7 ELR0aZFnyN7glJqm qjfmcP4aMxa+HVV5uHXn aLEVDR2mIhgnqDA+PHRk WGZ9dNtkICweJJXogG2o EXFrM2l2YtXfGvA9 CVxaN8AyrlM0PWYpsIEo ECBqmQDBpG2orpxcb0wg stnbDuBoQSVkRTw7QNl4 LWFsaWduOiBsZWZ0 UxW6XTN3aGRpwJ4lbXxh uboxbL6fCxb+QmlydGgg HDU1XDf5A1UwKwh1SMRa wFbuJV6lcXEtFUtk Nc3tjHmlfVylAM5nKSYx xspsz473UbPlh0ugPYVe uLAgNWitOMD2X30al7R1 APItZHWxUON3eZT8 dZ0qhMnqcnmbaSBhrAeo gwYowWhbZOkpURilQ578 NBBguYkmGqTwJIs1R1Lb Yde0VQRbqYvgSO6w xXGyXWfrDr9cnNdmsYwu CF8dFLYxtmqsr443EtMy u3poBTKrpYChFSdhFXG2 Y48cz0T8IFZmDDDh JDO6rUA4yH2lbOdstdma bGVmdDsgdmVydGljYWwt MSreS729OMEvuYqtNvUl sId0D0AfXxg0UQHi uMmrWD7mkBLsZPxmGk8b dOvnbUyiJW6cZTIrxgvq p335RoQym8qvUWAhtPCd FHfdAOS2X72vr6W7 EJUpSOXfKMJ2yYT4rS2l bGlnbjogbGVmdDsgdmVy kOxpDWvfCEywO572ELTb cDsnPlBhdGllbnQg YQriQLf2Z9ZvIrneoDL+ NZ06DIYaBS70eDOhdTVg q2mvsXg0OmDhKTKuRDM6 zCdyUHzvt0CsPSBw A07rcHGau4O4NDPieKko uHAvDwKjgXF7pS5pFHuu wphaw1hrztmcAhmpz7gs rs77wE17E71aCMkw ZHRoPSIzMCUiIHZhbGln hg9tcH0pAw9+PGNvbCB3 fGR2fZ1yXNJxQnI7MRto E910WlLxwUYkVhyk t7ykx6ioeWy0GoR0UNNa euBoyFmyBIG3l6HqEl72 E12dNGofZTWgWBSbZYFs ZDRezDszmp7kzL3t Ii8+XMKvrLD0iJB4nP2g SvYcBjA7GQzvE180AuGq bMQnNpxuT07vO7SreFK+ HXIuPfz1YSRisJhs WP4lnSRkQXfnSw1rZKU7 CmBkNdPuVCioZ2YbYXGt ugxmjtsqdZL8SMBjXGFc uU92Tb7zkXfkWNBe rGJYyU1ncirlm6sleqna KuNfLUMzZCg2YLk1MVQv fGduRwWtOJY6RpC5IVE7 vNGbgJ7pbGveiujt pC3vC9CkWZClsulyTy36 wW0kDoCiXdK2XPmdVmk+ K1vBKzBCLDqbM5cSAEFA ZFlSAN8NUTgotOX+ QYPeDMG5rRnlVJvpXGJg bE8iGZTkV2n0BsXePmA2 ORouG2GvXKKctnrqPr23 iZ6hBiNoMyQ8OFom H2RtwpT1EAQwdAExCNgq NVB0N24xn3L8FHPdXPTu BRX3gZP5gS0wfLbfketc bGVmdDsgdmVydGlj VYadMYuuF114NQGhmWdx RwQ8DxDfUqAeLAK2N5Tl Hrt5BCEghUwhJC8fwMVg LMrkSx7xvGuzeAzf GV4lLXBftcveLWPhgP9h HBXezZTzuPtbQM5iHCTi dkevk253TgAzVVW2OLUw aXBrN1VrfT6cFqWj GUZpTKDcZ1ZesOLiRXzs V625WBsyPpB9NARdzfJb D6EsRKOdxPyzJrD0m2M3 Ir8iMBWGMDDqxbsf dGQ+JGYzTLS8uUgyXWtp OIHnpH7sZIEvX5s5ZjJn DnF1JQjoL9DzUBWdmpkm Oc65uD1aPyWuGdT2 SKohA1LvcyI3SHEeqSNf VEcpJAS3C69av6W3RLHp UDOuECU1fFP9eH0yqOlf bjogbGVmdDsgdmVy qYwkQXaqDNlaJ653MIEu cDsnPkZFTUFMRTwvdGQ+ OQXkQSZ4qAfmKRsaAZRr cE4xXXRvS5j0IlXw PmQ1XKevU5OoRXXjvkey Ik91gY5lJnIbAfK6FOnu F0SgfrE7KIDgnSFpHRcx LRT9S47si2V7QTRe VASuMYX9iUL6eF8zpPvq bjogbGVmdDsgdmVydGlj YVoxUKmhR816KUJimCjx NvVfSOUiSB8kjGle dGQ+NR40mb53I0WaHgog Uig7PUXxSXO8kFA2uU4w RUBnLLvhv4I8pWD5Z4Fo yrJdwe5nb8bpXHTv RMmzA71flOMgd2P5FGXq kPW3HFAycVlbNdPujN08 Oyc+ZEPfwDjkl0JyGohr o4lsm7psmIy8GaUu XWSqitNgoGcdDYV8f4Jf Yl88I39mZFiwANSgXCTh ROZfPLZktBshxa0sqS6n Ii8+IIDxgWT4pBD9 uL1tDhLuCgD9ULuaU360 QzBrdOAuBvdqg3cjg1ii tEz1IoMhWBNrbcIozYsg OKE3s0YuKg04G1Tc qIcax3IuYpa1ge69jURt f4P2mTK3B7KePDJudtwu yHZcvAhjBU4dZEPyqsla ZWOgrJ1qXXIzT1k7 LfIuChE0LHpsV9YckkS1 QVRzvYRpRHUarAURkI7p ccfra5dsqeclHaGxXBLg GYe9XUu0KIVudDwu EbBxKYN5BwY2JQV9uBOd fN3moThsgtihuQ0eBjv+ FPj0p1nhsXFjWK7atFY0 ZY15VC67mIBoe2N2 cYT8S0FtLKQmafvxxqtq tMQ7TWOqVFKdaB91Ad2i sCqfYk3rTTHuHPE7UTNh hDTdW4SsuZ3hZcBy OHKkLUAuU3JlrKVoYPaj J820WQbvHlX7RVVtwqRy L3QeDLCxzRpkTiP7u3P0 Ky3DVC82ZY23TR47 sEJin3I1eJA6I5NzIVRe xqyurnjlpKW9GWLzXBKu dX07Vs8qoSbeDk8nVGSp UWE7PMLkmTDnD0Bh sY8eLtBqIHLmXHDzS2Wh fYVpESyjF731FQesCuO9 BNWnknPtN8CbSVNyyWfy JhA8j9L7Ca6RGx88 JU44UC28zTHzr8A2yYZ6 V6GbEZPrfmsprbrrhPX4 QFDlOMOerP98Hd1tpKju Hq0sNNVtOVR9IMDm tMXnJ1XcyS5zSyWfZXJu GFKrF8AkrSBnCGsvH149 BKaaPiT4GRQcmlTaK1Ym SHOsiFnrLfU5a5U7 Nj7AUOjzkuw7W3ClKjfv dHI+OG74GFHwHL97aGLr hBZay6wghNl6SzBqGPJd EDI8wYtvUJpsx3Xa ZXI (more content not included)... [facility] Coding Summaryon 05-01-2023 Coding Summary HTMLBase 64 HmdyknajVHs8vAw+PGhl YWQ+SW0FURYjY77sxOZb fX7mC3ECLTgERpcjSPUP LSzQGuOugiLqNJ9uoXTg ZXJu IC8+CK2wMSNhNjdltDWe o8P1yLC6H51usv5xTEiq oHI6MOLlNyLqcbzkb0jp dLs6BZrkBuyiBiJg QXWrzH80XDT4rJ31Ge30 tACahNTxa3eiiJz2BwTs CBQkADY4jWjwDLrzq0Xv QCRpU14niHJgw6B0 IGNvbGxhcHNlOyBlbXB0 rT5ySZraoufsd0ukaeni Oey0an28aEVgg7A7xPA4 Y7FpxfN7ZPIoqFYr QpkjqCEOiS9aldepn3dv esrsNpEwTBYhTBo9MBh1 OKDzyQfzZfSzZB20HYI7 QVCjlgYkK8JqHUTd mCgaJgN1k9G9Se9ZW2OE ZtpqL0SYMCRFQGgnuZD+ YZ21cz61U7BvHfuqYur0 LEXqGPJ1yZU9sW8i HAFjLCfsy0B1vFL0L3Lh wiMviy2hs6dvSQNtKPwd X10gaJHxv7U9BVAgiZS8 LMOprLtiNqSxqI89 Oyc+SWChyHxha9BuHlcw d6ezx8bbcTy5GxfqFSJi gtOyuNtmSDA8j3FxJr3r LSShoWC9gCF6gI1a EhNoFzK4UClvQ892DiOf fXSaIgnnS48aC9JdmJD+ YLKwExm9ISZfmWuuPH8m E9DiNZHatydelYRl cDksWO6sPDXkstbnMVLk uO2yYIPlW3q9QkYuCfQ4 VAezB4WlCYOsjwsmVd87 yL2hUmTlIhS5RKsu G1WpqzA7ENPkjFYyITyz RPR8G96zi7T8XNAaPEUv YNG1sJI9bH6rjZgnwahc bGVmdDsgdmVydGlj DNweQQmgM944XWWvgEet PkNvZGluZyBEYXRlOiAg MDEvMjQvMjAyNDwvdGQ+ WBFyXQX0qDafMDMk aLWoSNznKy4yvJlqmGjz EY5oINOiqomqPZXziA3t SPUdsKHhlAqwSE6cWPWt kpgzw819OmFvQNI7 SDYpaMNoI3WhfH1yMsLj SYExGGKgQ1TsrIUkXEhf Z944QFlhRaQ9KETjemTz N2UqDKQwcKpeBvA7 v9L2Fg2Gn9LqqufiB4Qb pGNwJuQiXxpnYHh7A4Kx PjwvdHI+HY54ZDFyBE65 WEy9LQF5rPflQUbr FVQrW6CpfV1jWvRiFCPp ZGRkOyc+PHRhYmxlIHdp ZHRoPScxMDAlJyBzdHls LM8vBm6tMFGjTSMo yNxtnFJvKfXhq7lzWGSr LWfmRR0dxXmiQ4WqqNR1 BAHel5n4Cq87L71zK4Id dXA+MHVsrRM3wPE6 yG3aXtHhJvZ6IIcuR569 GaAnyJFnRlvfh7qdq4ht aHm9WqS5LJHonhCzgHpu TTE1w2WjEp68Z66n IHdpZHRoPSIxNSUiIHZh oLrhwe1icJ7kUq2+PGNv tRZ3xQD3lB2lSkPiTvF5 MVlaZ643ScUouKZo Tanyi6mxg0uwlSb3QqWw VLGchlWzdZfnOQV4j1Wx Qj86F1KqsStjc2OoChb0 if76wBIls7E7zUW6 L6SiOAFdtkdboAFjuDgq QI8lTLWqmxwbWVBzbO6l PKWlU0n0YkBoVkU5ECqk E8OdsjO9HBBnlLFz GIUuaZXJzD7vsmoyf8ea wxevGhZsFPWbAVq5RNn2 UKYnvUmdSdAgRJG9UhQ6 VBH5cPTpeQ2oeAqx akaiuL3sLxp+TTA3aRYx mZRYYX1xQxcxbHX+PHRk OFA2eEhdZQbeBHRvkT0d GUEmR1f3LyFgRqW7 WWozE8SdwjG4HECnrHGs AQSigCEKgJ9ladvql8io wrkmZjXjILWmGHr4OOp0 LWFsaWduOiBsZWZ0 FkF7HXJ9vPEwyK4seSno ktzseL7oBva+QmlydGgg QBE6BPs9X5DcQmy4RXRh fIjlWV1rjHAxSZay Wz4vyXyrwGmcHW6hEIEt qlyrf615XcHka4qfKASi vULjEKtgGCW6O47zv4H5 WGMbNLWuDUB1qBO9 wC7rbZqerjruvYUgiMmo gzZtbTieHGbqPWmrW521 JMUclQifObBuPZf4Q2Rc Zts0DSCvjWkgAQ0o aGFrDBgvUm5msDnjdJai UC3vBQEbobuyd140EoOx q8sqGIUwxBCcZQmqZEX4 G13uv2U4KYNeRHJp WJB0cBJ8rX0aoQzfbhea bGVmdDsgdmVydGljYWwt HWohD929JDWhdQqoIjKc wUv2J1PnWrl7GEFf eEytKD8rtRNrSRbkNh6n nTuwjRwgQW3sYOVapjar y763AsJqb0noSJGzaMSo OZjbAJG8T35bh9W3 QFXxVPUwHEU1mVP8iA4c bGlnbjogbGVmdDsgdmVy pWxhRVkbQSlwZ471CNNa cDsnPlBhdGllbnQg WItfMIu3X8VhMealdRD+ FE08ZTHjFV31mRRjgXMb i9qncXm8MqDyKRObJRJ1 gGqlLWdhg7AeWOHm K09glHHpf7A8WKJtrKoq rPMaAqNtuKX3tU8tMJff jwglb1elbrgwDkjht9wp ny38cE00S70nHNyp ZHRoPSIzMCUiIHZhbGln ux3ktA7tIk2+PGNvbCB3 cXL0iU6aBJAkGkA4QJzx J065FsDmsEUhKvju p8jwl2oewAl5TuM0UQOr utUtwPvaCMU2k3JyWg60 S72dADndIXPtRKMqFWGd TXVaxBogzs8kuX1s Ii8+QXWptZC5tCV4aA2n CnXsKkG0BYwpG671LwVz nKWmMmkrA67vT7NhgGK+ VBWyOml7EPMtnXes VS2cvDNxHSbgXe2oSWU3 JpUnNoJuIRsqN3HaCROm oiktufvezPT8OCXiWJFw vJ09Ka8elOxlUKSh lLGEgE4qciinl3rsufhe OcPfHVMwXBo3WFx7BCTc bTgiJpWqRAT5FbF5WCA5 nSNdlR1ugEpscwmy rV7dM2RsTEEugbusOk81 xZ1hHkGuFhI9VErrXhg+ K7mPMpUHQRmzH7pXKILN ZYwDUN3WLMsjuJW+ UEMpPCE8wXyfPCecZDCb mY6wSSAmR6s3PsKeYaN6 LZlvF2BrYMPemtkmNl23 lJ3pHjLiVaV1BKaj B4BdeoX5TMTipBMgQCkj GOL3D35zp8M7XFZiPUFs FEV5ePK0qS3jjCvqigvo bGVmdDsgdmVydGlj HWboSFucH074GRUvjIuv DwH4XdYkYhKnRCI3C7Zt Aex2JNSciLxaEK6lfVPl WKmjIr0vcEsmzVkm TS4tCHZzmkxhSVKvbX1w HIXghEMuiKooQZ9fSOPc nchbf774JdLlOEX4CURg oQAgC6EugU5jGcQt EQEuKYInJ7PqdHGqNIwq A767DUmbCjB5UDAlvuBz M7IhVXFqzVjpGkI1q1L6 Ge9rKQUJLHEofgsh dGQ+QFSoWFM3gDbwDUie TLRnpM1eUHUeZ8d5YiOj DmY6QWffK1QjFPChhjul Ci18oE9hSqEgVdS3 VQipQ0LfejD7WYEoqMSc QOylHSC2O82rp7X6SQAe CIIkGFW4wBC5eI9gbFoa bjogbGVmdDsgdmVy vXzcGLsvKKqxC144FXNc cDsnPkZFTUFMRTwvdGQ+ IUUsGJX2rDhtHIcaRMXr oU8jSSNnZ0x3GiYo QiD6FOlsD8WpBNXitspv Lj22eU8eKfSmTtL8KYtr Y7RftkD1OQCvyRZiEMqu FMO6S63wl3O5BBJq OBXrUMI0fVU1kR3alMbr bjogbGVmdDsgdmVydGlj AAxsNOhuI439JMMcqCps Vv5LPW84UT82B9Rs PjwvdGFibGU+PHRhYmxl IHdpZHRoPScxMDAlJyBz xCkhFD6eNp2aOUIpXHCm aTgcnXDoIcCby0mj CIBeVUbuWH1jmAyvI0Jw kOA8NQZyh0b2Qc60F34p E1OprQY+UGNhxCZ8fRD9 qL7aCbDoFvN4ABvd E308EmLmePUmLsujf0ce g5xvaEu9HaIlPHVeuzMz qAlxAJM3o1NjAj97L56n IHdpZHRoPSIyMCUi SNOpwNlpgw8eqT5uWu9+ PKArpOU8sJR7tS3hVaBh AkC9BVtwO890LdNwtMAu OnzmG44yQ3CdlOF+ XOSxIqg1VNOvzOvnJW0b pRPrBQyfVo4iNRJ5GbGz SmHzWOkrJ4DmRFYbpfua iifdmLC3ENTpSAOt zQ68Ei3edNezIx0tJIGf YZR8PGPpaRSaG6OvqX3x IjRgYMPcFFXxV9NhnVLl DZdlZ871EFxoQuL3 HJBnxpFvT2CkLZXutHej LjC7o6B5Mf8InXkpfHNd ZG6gYvNtBGv8T3NmZkm7 RCLjjMquJN9krAFi OVmyXo7xdIlviFgwZV9c JPKperxwm008FmAmr7lv TJObyLAaCCyuBCW3C19i a9C1TPQiLNPdTDV3 bSM2eV2ekTbsqoajdEYc dDsgdmVydGljYWwtYWxp D445FVWxfKipNzWRRts6 F5DmPhv9IUByaNtw DC7ehFQxVQhsBv3jnDts sUqnLK8qZEEnlvvtr746 JgHap3itVFZwoQQqXXeh HPY8Z94bk9T0CNMy DJOnTRD3jRW2dL9xxLje bjogbGVmdDsgdmVydGlj CJngSKcdJ034AXKjjCft Uc8YCnz3C9OvHzu0 SJKceNpzTJ7gzMKnTWmv Yt9deTuivZowSC3mRBUj mgnpj113UbQui9fnRYLy mCZtXWrqCOY2J35q r6E5FHSyZDSpNZY6dLL6 eG9pyMimqoedsSXrfNiv nqKmuZprRMtwZSbbK427 IHRvcDsnPlBheWVy OjwvdGQ+NS24pv62W2Cq VuvrMmq3UXGuGQW2yBK7 vE3nQJLtSGidt8X4wYR7 D9LmguUtmi5gh4ep YXB (more content not included)... Normal [facility] .Auto Diff 104-15-2023 Auto King % 8 % Normal -12 [facility] Comment on above: Performed By: #### 1 [id number], [id number], [id number], [id number] #### [facility] (DEFAULT) [address] [place] [address] Baso Abs# 0.1 x10 Normal 0.0-0.2 [facility] Comment on above: Performed By: #### 1 [id number], [id number], [id number], [id number] #### [facility] (DEFAULT) [address] [place] [address] Basophils/100 WBC (Bld) 1.0 % Normal 0.2-2.0 [facility] Comment on above: Performed By: #### 1 [id number], [id number], [id number], [id number] #### [facility] (DEFAULT) [address] [place] [address] 61851 Eos Abs# 0.1 x10 Normal 0.0-0.4 [facility] Comment on above: Performed By: #### 1 [id number], [id number], [id number], [id number] #### [facility] (DEFAULT) [address] [place] [address] 52985 Eosinophils/100 WBC (Bld) 0.5 % Low 0.9-4.0 [facility] Comment on above: Performed By: #### 1 [id number], [id number], [id number], [id number] #### [facility] (DEFAULT) [address] [place] [address] 70354 Lymph Abs# 2.9 x10 Normal 1.3-2.9 [facility] Comment on above: Performed By: #### 1 [id number], [id number], [id number], [id number] #### [facility] (DEFAULT) [address] [place] [address] Lymphocytes/100 WBC (Bld) 30 % Normal 14-48 [facility] Comment on above: Performed By: #### 1 [id number], [id number], [id number], [id number] #### [facility] (DEFAULT) [address] [place] [address] King Abs# 0.8 x10 Normal 0.0-0.8 [facility] Comment on above: Performed By: #### 1 [id number], [id number], [id number], [id number] #### [facility] (DEFAULT) [address] [place] [address] Neut Abs# 6.0 x10 Normal 1.5-9.2 [facility] Comment on above: Performed By: #### 1 [id number], [id number], [id number], [id number] #### [facility] (DEFAULT) [address] [place] [address] Neutrophils/100 WBC (Bld) 61 % Normal 44-88 [facility] Comment on above: Performed By: #### 1 [id number], [id number], [id number], [id number] #### [facility] (DEFAULT) [address] [place] [address] CBC w/ Auto Diffon 4 Erythrocyte distribution width (RBC) [Ratio] 13.4 % Normal 11.5-15.0 [facility] Comment on above: Performed By: #### 1 [id number], [id number], [id number], [id number] #### [facility] (DEFAULT) [address] [place] [address] Hematocrit (Bld) [Volume fraction] 40.7 % High 33.7-40.4 [facility] Comment on above: Performed By: #### 1 [id number], [id number], [id number], [id number] #### [facility] (DEFAULT) [address] [place] [address] 80160 Hemoglobin (Bld) [Mass/Vol] 13.7 g/dL Normal 11.3-15.9 [facility] Comment on above: Performed By: #### 1 [id number], [id number], [id number], [id number] #### [facility] (DEFAULT) [address] [place] [address] Man Diff? Auto Invalid Interpretation Code [facility] Comment on above: Performed By: #### 1 [id number], [id number], [id number], [id number] #### [facility] (DEFAULT) [address] [place] [address] MCH (RBC) [Entitic mass] 29 pg Normal 24-34 [facility] Comment on above: Performed By: #### 1 [id number], [id number], [id number], [id number] #### [facility] (DEFAULT) [address] [place] [address] 14782 MCHC (RBC) [Mass/Vol] 34 g/dL Normal 26-37 [facility] Comment on above: Performed By: #### 1 [id number], [id number], [id number], [id number] #### [facility] (DEFAULT) [address] [place] [address] 96200 MCV (RBC) [Entitic vol] 86 fL Normal 81-100 [facility] Comment on above: Performed By: #### 1 [id number], [id number], [id number], [id number] #### [facility] (DEFAULT) [address] [place] [address] 14604 Platelet 430 x10 High 138-427 [facility] Comment on above: Performed By: #### 1 [id number], [id number], [id number], [id number] #### [facility] (DEFAULT) [address] [place] [address] 70166 Platelet mean volume (Bld) [Entitic vol] 8.5 fL Normal 6.3-10.2 [facility] Comment on above: Performed By: #### 1 [id number], [id number], [id number], [id number] #### [facility] (DEFAULT) [address] [place] [address] 07842 RBC 4.75 x10 Normal 3.70-5.30 [facility] Comment on above: Performed By: #### 1 [id number], [id number], [id number], [id number] #### [facility] (DEFAULT) [address] [place] [address] WBC 9.9 x10 Normal 3.5-10.5 [facility] Comment on above: Performed By: #### 1 [id number], [id number], [id number], [id number] #### [facility] (DEFAULT) [address] [place] [address] CMP Standardon 04-15-2023 eGFR Non AA >60 Invalid Interpretation Code [facility] Comment on above: Performed By: #### 1 [id number], [id number], [id number], [id number] #### [facility] (DEFAULT) [address] [place] [address] eGFR AA >60 Invalid Interpretation Code [facility] Comment on above: Performed By: #### 1 [id number], [id number], [id number], [id number] #### [facility] (DEFAULT) [address] [place] [address] 02579 Albumin [Mass/Vol] 4.5 g/dL Normal 3.5-5.0 [facility] Comment on above: Performed By: #### 1 [id number], [id number], [id number], [id number] #### [facility] (DEFAULT) [address] [place] [address] 76815 Albumin/Globulin [Mass ratio] 1.2 {ratio} Low 1.4-2.6 [facility] Comment on above: Performed By: #### 1 [id number], [id number], [id number], [id number] #### [facility] (DEFAULT) [address] [place] [address] Alk Phos 68 IU/L Normal 32-91 [facility] Comment on above: Performed By: #### 1 [id number], [id number], [id number], [id number] #### [facility] (DEFAULT) [address] [place] [address] 60278 ALT [Catalytic activity/Vol] 34.0 U/L Normal 14.0-54.0 [facility] Comment on above: Performed By: #### 1 [id number], [id number], [id number], [id number] #### [facility] (DEFAULT) [address] [place] [address] 96247 AST [Catalytic activity/Vol] 27 U/L Normal 15-41 [facility] Comment on above: Performed By: #### 1 [id number], [id number], [id number], [id number] #### [facility] (DEFAULT) [address] [place] [address] 95301 Bili Total 0.7 mg/dL Normal 0.3-1.2 [facility] Comment on above: Performed By: #### 1 [id number], [id number], [id number], [id number] #### [facility] (DEFAULT) [address] [place] [address] 45704 Creatinine [Mass/Vol] 0.77 mg/dL Normal 0.60-1.30 [facility] Comment on above: Performed By: #### 1 [id number], [id number], [id number], [id number] #### [facility] (DEFAULT) [address] [place] [address] 27746 Globulin (S) [Mass/Vol] 3.6 g/dL Normal 1.5-4.3 [facility] Comment on above: Performed By: #### 1 [id number], [id number], [id number], [id number] #### [facility] (DEFAULT) [address] [place] [address] 53513 Osmolality 269 mOsm/L Invalid Interpretation Code [facility] Comment on above: Performed By: #### 1 [id number], [id number], [id number], [id number] #### [facility] (DEFAULT) [address] [place] [address] 57313 Protein [Mass/Vol] 8.1 g/dL Normal 6.5-8.1 [facility] Comment on above: Performed By: #### 1 [id number], [id number], [id number], [id number] #### [facility] (DEFAULT) [address] [place] [address] 41031 Urea nitrogen [Mass/Vol] 10 mg/dL Normal 8-26 [facility] Comment on above: Performed By: #### 1 [id number], [id number], [id number], [id number] #### [facility] (DEFAULT) [address] [place] [address] 63333 Urea nitrogen/Creatinine [Mass ratio] 12.9 mg/mg Normal 4.6-16.2 [facility] Comment on above: Performed By: #### 1 [id number], [id number], 6149524, [id number] #### [facility] (DEFAULT) [address] [place] [address] 21554 Calcium [Mass/Vol] 9.0 mg/dL Normal 8.9-10.3 [facility] Comment on above: Performed By: #### 1 [id number], [id number], 6492459, [id number] #### [facility] (DEFAULT) [address] [place] [address] 61977 Chloride [Moles/Vol] 104 mmol/L Normal 101-111 [facility] Comment on above: Performed By: #### 1 [id number], [id number], 9707939, [id number] #### [facility] (DEFAULT) [address] [place] [address] 00598 CO2 [Moles/Vol] 23 mmol/L Normal 21-32 [facility] Comment on above: Performed By: #### 1 [id number], [id number], 6282519, [id number] #### [facility] (DEFAULT) [address] [place] [address] 19191 Glucose [Mass/Vol] 94.0 mg/dL Normal 74.0-118.0 [facility] Comment on above: Performed By: #### 1 [id number], [id number], 0458756, [id number] #### [facility] (DEFAULT) [address] [place] [address] 83275 Potassium [Moles/Vol] 3.9 mmol/L Normal 3.6-5.1 [facility] Comment on above: Performed By: #### 1 [id number], [id number], 1027926, [id number] #### [facility] (DEFAULT) [address] [place] [address] Sodium [Moles/Vol] 135.0 mmol/L Low 136.0-144.0 [facility] Comment on above: Performed By: #### 1 [id number], [id number], 8862875, [id number] #### [facility] (DEFAULT) [address] [place] [address] Anion gap [Moles/Vol] 11.9 mmol/L Normal 5.0-19.0 [facility] Comment on above: Performed By: #### 1 [id number], [id number], 8636398, [id number] #### [facility] (DEFAULT) [address] [place] [address] ED Clinical Summaryon 2023 ED Clinical Summary [facility] - Emergency Department [address] [place], [place] [address] ED Clinical Summary PERSON INFORMATION Name: LIA DESAI Age: 22 Years Sex: FEMALE : 2000 MRN: Acct#: Visit Reason: Vomiting - ; NAUSEA, VOMITING, 6 WEEKS Arrival: 04/15/2023 14:48:29 Discharge: 04/15/2023 16:38:00 LOS: 000 01:50 Check In: 04/15/2023 14:48:29 Checkout:04/15/2023 16:38:00 Address: [address] [place], [place] [id number] PCP: ROBERT MARRERO PROVIDER INFORMATION Provider Role Assigned Unassigned Sara SANTOS, Sera ED Nurse 04/15/2023 14:50:36 Elsa [place]-Shakeel ED PA 04/15/2023 14:51:04 VITALS INFORMATION Vital Sign Triage Latest Temperature Tympanic Temperature Temporal Artery 36.4 DegC Pulse Rate 88 bpm 88 bpm O2 Sat 100 % 100 % Respiratory Rate 18 br/min 18 br/min Blood Pressure /72 mmHg /72 mmHg MEDICAL INFORMATION Medications Given: Medication Dose Route prochlorperazine 10 mg IV Push Sodium Chloride 0.9% intravenous solution 1,000 mL 1000 mL Initial Volume 1000 mL/hr IV Left Antecubital Fossa Allergy Information: Adhesive Bandage; Zithromax PHYSICIAN DOCUMENTATION DISCHARGE INFORMATION: Discharge Disposition: Home Discharge Location: Home PATIENT EDUCATION INFORMATION Instructions: Nausea and Vomiting, Adult, [id number] Follow-Up: With: Address: When: ROBERT MARRERO [address] [place] [address] Within 3 to 5 days DIAGNOSIS: 1:Nausea/vomiting in Patient Understands: Yes - Patient/family/careg iver verbalizes understanding of instructions given Comment: Normal [facility] ED Patient Summaryon 024 ED Patient Summary [facility] - Emergency Department [address] [place], [place] [address] PATIENT DISCHARGE INSTRUCTIONS Patient Information Name: LIA DESAI Age: 22 Years Date of : 2000 Reason For Visit: Vomiting - ; NAUSEA, VOMITING, 6 WEEKS Arrival Time: 04/15/2023 14:48:29 Primary Care Physician: ROBERT MARRERO Attending Physician: Yassine Maldonado MD Comment: Visit Diagnosis: Diagnoses This Visit Nausea/vomiting in (O21.9) Vomiting - ([id number]) The Pharmacy at [facility] is open Saturday through Saturday from 9A to 6P and Saturday and Saturday from 9A to 5P Prescription Information: If you have been given a prescription for narcotics, seek immediate medical attention if you have any difficulty breathing or any sudden status changes such as confusion and sleepiness. If you or anyone you know is experiencing suicidal thoughts, mental health, alcohol and/or drug addiction problems; contact the [facility] 29/10 Crisis Hotline -Text 1FYDO pd 958741. If you received any narcotics, sedation, or any other medication that causes drowsiness for the next 24 hours, unless otherwise directed: ? Do not drive a car. ? Do not operate machinery such as power tools, lawn mowers, drills, sewing machines, or stoves ? Avoid alcoholic beverages and drugs for allergies, nerves, or sleep ? Do not make important personal or business decisions or sign any legal documents With: Address: When: ROBERT MARRERO [address] [place], [place] [id number] Within 3 to 5 days Medication Information: The exam and treatment you received today in the [facility] Emergency Department were for an urgent problem and are not intended as complete care. It is important for you to follow up with a doctor, nurse practitioner, or physician?s general office assistant for ongoing care. If your symptoms become worse or you do not improve as expected and you are unable to reach your usual health care provider, you should return to the Emergency Department, we are available 24 hours a day. For those patients who have received Radiology results, the interpretation of your X-ray as given to you by our Emergency Department physician is only a preliminary report. The Radiologist will review your films and if there is a change in the diagnosis you will be notified by phone. Please make sure you have provided a working phone number so we can reach you if necessary. In the event that you had a lab culture while you were a patient in the Emergency Department, you will be notified by phone if there is a need to change your antibiotic. Please make sure you have provided a working phone number so we can reach you if necessary. [facility] Emergency Department has provided you with a complete list of medications post discharge. Please inform your chief construction inspector/provider of your visit and for further instruction on these medications. Any specific questions regarding your chronic medications and dosages should be discussed with your primary care physician(s) and/or pharmacist. Additional medications on your home medication list not specifically addressed. Please contact the ordering physician if you have questions about these medications. folic acid (folic acid 1 mg oral tablet) multivitamin, (Multivitamin) 1 tab Oral (given by mouth) every day. ondansetron (ondansetron 4 mg oral tablet, disintegrating) 1 tab(s) Oral (given by mouth) Every 8 hours (scheduled) as needed as needed for nausea/vomiting. Refills: 0. pyridoxine (pyridoxine 25 mg oral tablet) Visit Information Allergies: Substance Reaction Symptoms Type Comments Zithromax Drug Adhesive Bandage Other Vital Signs: Vitals and Measurements this Visit (last charted value for your 04/15/2023 visit) Vital Signs This Visit Temperature Temporal Artery: 36.4 DegC Peripheral Pulse Rate: 88 bpm Respiratory Rate: 18 br/min Systolic Blood Pressure: 138 mmHg Diastolic Blood Pressure: 72 mmHg SpO2: 100 % Oxygen Therapy: Room air Measurements This Visit Height/Length Estimated: 170.18 cm Weight Estimated: 115.21 kg Body Mass Index Estimated: 39.78 kg/m2 Problems List: Problem Onset Comments Acute depression Anxiety Chronic post-traumatic stress disorder (PTSD) Patient Education Nausea and Vomiting, Adult Nausea is feeling that you have an upset stomach and that you are about to vomit. Vomiting is when food in your stomach forcefully comes out of your mouth. Vomiting can make you feel weak. If you vomit, or if you are not able to drink enough fluids, you may not have enough water in your body (get dehydrated). If you do not have enough water in your body, you may: ? Feel tired. ? Feel thirsty. ? Have a dry mouth. ? Have cracked lips. ? Pee (urinate) less often. Older adults and people with other disea (more content not included)... Normal [facility] Extra Greenon 04-15-2023 Tube Collected Yes Invalid Interpretation Code [facility] Comment on above: Performed By: #### 1 [id number] #### [facility] (DEFAULT) [address] [place] [address] ED Clinical Summaryon 2023 ED Clinical Summary [facility] ? Urgent Care [address] [place] [address] Clinical Summary PERSON INFORMATION Name: LIA DESAI Age: 22 Years Sex: FEMALE : 2000 MRN: Acct#: Visit Reason: UC - Nausea; NAUSEA Arrival: 04/12/2023 09:25:14 Discharge: 04/12/2023 09:56:00 LOS: 000 00:31 Check In: 04/12/2023 09:25:14 Checkout: 04/12/2023 09:56:00 Address: [address] [place] [id number] PCP: ROBERT MARRERO PROVIDER INFORMATION Provider Role Assigned Unassigned Oneil Salomon ED PA 04/12/2023 09:28:39 Kiera Ledesma ED Nurse 04/12/2023 09:29:30 VITALS INFORMATION Vital Sign Triage Latest Temperature Tympanic Temperature Temporal Artery Pulse Rate O2 Sat Respiratory Rate Blood Pressure /60 mmHg /60 mmHg MEDICAL INFORMATION Medications Given: Allergy Information: Adhesive Bandage; Zithromax PHYSICIAN DOCUMENTATION DISCHARGE INFORMATION: Discharge Disposition: Home Discharge Location: Home PATIENT EDUCATION INFORMATION Instructions: Morning Sickness Follow-Up: With: Address: When: ROBERT MARRERO [address], [place] [id number] Within 3 to 5 days Comments: Diagnosis is history of nausea vomiting, during . We provided you with medication help with nausea. Keep hydrated. Eat light, over the next 24-48 hours, soups, Jell-O, avoid heavy meals. Follow-up with your own primary care provider, or your EVENT PRODUCER physician in the next 3-5 days, for reevaluation. Return to the emergency room for worsening symptoms or concerns, worsening abdominal pain, worsening nausea or vomiting, spiking fevers, acute shortness of breath or chest pain, or any questions DIAGNOSIS: 1:Nausea and vomiting during Patient Understands: Yes - Patient/family/careg iver verbalizes understanding of instructions given Comment: Normal [facility] ED Patient Summaryon 024 ED Patient Summary [facility] ? Urgent Care [address] [place] [address] PATIENT DISCHARGE INSTRUCTIONS Patient Information Name: ILA DESAI Age: 22 Years Date of : 2000 Reason For Visit: UC - Nausea; NAUSEA Arrival Time: 04/12/2023 09:25:14 Primary Care Physician: ROBERT MARRERO Attending Physician: Oneil Salomon Comment: Patient Education With: Address: When: ROBERT MARRERO [address] [id number] Within 3 to 5 days Comments: Diagnosis is history of nausea vomiting, during . We provided you with medication help with nausea. Keep hydrated. Eat light, over the next 24-48 hours, soups, Jell-O, avoid heavy meals. Follow-up with your own primary care provider, or your EVENT PRODUCER physician in the next 3-5 days, for reevaluation. Return to the emergency room for worsening symptoms or concerns, worsening abdominal pain, worsening nausea or vomiting, spiking fevers, acute shortness of breath or chest pain, or any questions Morning Sickness Morning sickness is when a woman feels nauseous during . This nauseous feeling may or may not come with vomiting. It often occurs in the morning, but it can be a problem at any time of day. Morning sickness is most common during the first trimester. In some cases, it may continue throughout . Although morning sickness is unpleasant, it is usually harmless unless the woman develops severe and continual vomiting (hyperemesis gravidarum), a condition that requires more intense treatment. What are the causes? The exact cause of this condition is not known, but it seems to be related to normal hormonal changes that occur in . What increases the risk? You are more likely to develop this condition if: ? You experienced nausea or vomiting before your . ? You had morning sickness during a previous . ? You are with more than one baby, such as twins. What are the signs or symptoms? Symptoms of this condition include: ? Nausea. ? Vomiting. How is this diagnosed? This condition is usually diagnosed based on your signs and symptoms. How is this treated? In many cases, treatment is not needed for this condition. Making some changes to what you eat may help to control symptoms. Your health care provider may also prescribe or recommend: ? Vitamin B6 supplements. ? Anti-nausea medicines. ? Uri. Follow these instructions at home: Medicines ? Take oqts-uxn-sffdcou and prescription medicines only as told by your health care provider. Do not use any prescription, xuts-xgw-yonpwew, or herbal medicines for morning sickness without first talking with your health care provider. ? Take multivitamins before getting . This can prevent or decrease the severity of morning sickness in most women. Eating and drinking ? Eat a piece of dry toast or crackers before getting out of bed in the morning. ? Eat 5 or 6 small meals a day. ? Eat dry and bland foods, such as rice or a baked potato. Foods that are high in carbohydrates are often helpful. ? Avoid greasy, fatty, and spicy foods. ? Have someone cook for you if the smell of any food causes nausea and vomiting. ? If you feel nauseous after taking vitamins, take the vitamins at night or with a snack. ? Eat a protein snack between meals if you are hungry. Nuts, yogurt, and cheese are good options. ? Drink fluids throughout the day. ? Try uri prabhakar made with real uri, uri tea made from fresh grated uri, or uri candies. General instructions ? Do not use any products that contain nicotine or tobacco. These products include cigarettes, chewing tobacco, and vaping devices, such as e-cigarettes. If you need help quitting, ask your health care provider. ? Get an air purifier to keep the air in your house free of odors. ? Get plenty of fresh air. ? Try to avoid odors that trigger your nausea. ? Consider trying these methods to help relieve symptoms: ? Wearing an acupressure wristband. These wristbands are often worn for seasickness. ? Acupuncture. Contact a health care provider if: ? Your home remedies are not working and you need medicine. ? You feel dizzy or light-headed. ? You are losing weight. Get help right away if: ? You have persistent and uncontrolled nausea and vomiting. ? You faint. ? You have severe pain in your abdomen. Summary ? Morning sickness is when a woman feels nauseous during . This nauseous feeling may or may not come with vomiting. ? Morning sickness is most common during the first trimester. ? It often occurs in the morning, but it can be a problem at any time of day. ? In many cases, treatment is not needed for this condition. Making some changes to what you eat may help to control symptoms. This information is not intended to replace advice given to yo (more content not included)... Normal [facility] [address] 024 Urgent Care Record [facility] ? Urgent Care [address] [place] [address] PATIENT DISCHARGE INSTRUCTIONS Patient Information Name: LIA DESAI Age: 22 Years Date of : 2000 Reason For Visit: UC - Nausea; NAUSEA Arrival Time: 04/12/2023 09:25:14 Primary Care Physician: ROBERT MARRERO Attending Physician: Oneil Salomon Comment: Visit Diagnosis: Diagnoses This Visit Nausea and vomiting during (O21.9) UC - Nausea ([id number]) If you received any narcotics, sedation, or any other medication that causes drowsiness for the next 24 hours, unless otherwise directed: ? Do not drive a car. ? Do not operate machinery such as power tools, lawn mowers, drills, sewing machines, or stoves ? Avoid alcoholic beverages and drugs for allergies, nerves, or sleep ? Do not make important personal or business decisions or sign any legal documents With: Address: When: ROBERT MARRERO [address] [place] [address] Within 3 to 5 days Comments: Diagnosis is history of nausea vomiting, during . We provided you with medication help with nausea. Keep hydrated. Eat light, over the next 24-48 hours, soups, Jell-O, avoid heavy meals. Follow-up with your own primary care provider, or your EVENT PRODUCER physician in the next 3-5 days, for reevaluation. Return to the emergency room for worsening symptoms or concerns, worsening abdominal pain, worsening nausea or vomiting, spiking fevers, acute shortness of breath or chest pain, or any questions Medication Information: The exam and treatment you received today in the [facility] were for an urgent problem and are not intended as complete care. It is important for you to follow up with a doctor, nurse practitioner, or physician?s general office assistant for ongoing care. If your symptoms become worse or you do not improve as expected and you are unable to reach your usual health care provider, you should return to the Emergency Department, we are available 24 hours a day. For those patients who have received Radiology results, the interpretation of your X-ray as given to you by our Urgent Care physician is only a preliminary report. The Radiologist will review your films and if there is a change in the diagnosis you will be notified by phone. Please make sure you have provided a working phone number so we can reach you if necessary. In the event that you had a lab culture while you were a patient in the Urgent Care, you will be notified by phone if there is a need to change your antibiotic. Please make sure you have provided a working phone number so we can reach you if necessary. [facility] has provided you with a complete list of medications post discharge. Please inform your chief construction inspector/provider of your visit and for further instruction on these medications. Any specific questions regarding your chronic medications and dosages should be discussed with your primary care physician(s) and/or pharmacist. New Medications [facility] [address], [place] [id number], [phone] ondansetron (ondansetron 4 mg oral tablet, disintegrating) 1 tab(s) Oral (given by mouth) Every 8 hours (scheduled) as needed as needed for nausea/vomiting. Refills: 0. Additional medications on your home medication list not specifically addressed. Please contact the ordering physician if you have questions about these medications. multivitamin, (Multivitamin) 1 tab Oral (given by mouth) every day. Visit Information Allergies: Substance Reaction Symptoms Type Comments Zithromax Drug Adhesive Bandage Other Vital Signs: Vitals and Measurements this Visit (last charted value for your 04/12/2023 visit) Vital Signs This Visit Temperature Temporal: 36.4 DegC Peripheral Pulse Rate: 72 bpm Respiratory Rate: 18 br/min Systolic Blood Pressure: 116 mmHg Diastolic Blood Pressure: 60 mmHg Blood Pressure Method: Manual Measurements This Visit Height/Length Measured: 171 cm Weight Measured: 115.21 kg Weight Dosin.210 kg Body Mass Index: 39.4 kg/m2 BSA Measured: 2.34 m2 Problems List: Problem Onset Comments Acute depression Anxiety Chronic post-traumatic stress disorder (PTSD) Patient Education Morning Sickness Morning sickness is when a woman feels nauseous during . This nauseous feeling may or may not come with vomiting. It often occurs in the morning, but it can be a problem at any time of day. Morning sickness is most common during the first trimester. In some cases, it may continue throughout . Although morning sickness is unpleasant, it is usually harmless unless the woman develops severe and continual vomiting (hyperemesis gravidarum), a condition that requires more intense treatment. What are the causes? The exact cause of this condition is not kn (more content not included)... [facility] Coding Summaryon 03-06-2023 Coding Summary HTMLBase 64 CyovqxpfOEz4uNv+PGhl YWQ+WT5OYHKnA60wpJDk rK6fP9KRAHuOSigvXARY DKzKJeIilkUpWT3phOLg ZXJu IC8+VE2sLRIuLbqrgCFi s8O0nVB7S89hvc3jELwj vFV7NMJfIoZynryci3ad tJp9RPhgLtgoRpAy DZTqkK85KNC2pR06Ie09 tYQoiWKwh0maoGg0HsWz QCLpBIT6cIutLPtgh9Vi GVWsT74kbLDyl2X4 IGNvbGxhcHNlOyBlbXB0 aU0qDQkiozsll0ldlbnn Ewm0ft10uSUpz8I9lNS8 G9ZxbpP6KDBcvVWs SiwooSLJrG5tymekq3hm zwqiRkOmVWIgSKi0NOu1 ISJqaIhkBmHeWG78NBW0 FUQkvcMxD7ZxBGTc rZtbAmQ3d7M1Ef3LB6TL MaajQ8PZFWBKJLvsyKE+ SG18pz48E7DjTvymGbv8 OTRhCOT2uLW4tX2z NDKrJGovi3J8rZL7U9Tz dxQjpn1vu1llNQPdMWlq Q06nfDVsm8A3JOUxyQJ5 HIKrsRtmXyXwpF79 Oyc+PPOgjOgrs9UuXiae p7avo7kpbQi6HysiCISj ebZphOcyTDZ1g3NlXh4u BYEexFB9gBI0rJ0t MbKgLjS8JUkxL463ZeYx eBHgMtfcU56vK4ZvzSZ+ AVLqFwp8IUFhhWzjHH4t C7OeXSPbgtpzeFAl nUhpLA4nNDRakyvgUFSm eR3jPHLqG8l3TpIlJyT2 KWjiI8HaVAHkrjswCp63 hI5gMlGiRzJ0ZIns Y0QcmfC3WXNudBFgZChw RQM5Z91tw5C9CLBwXLHv VYL2jZQ1nG3xmHaatetc bGVmdDsgdmVydGlj LJhiCEycN585YXIiuFjn PkNvZGluZyBEYXRlOiAg MTEvMjkvMjAyMzwvdGQ+ AWPcRSO7bIvrNFRf nZFpOVgcLy5sdGuwgLfn OD0xXGWapmgjGHAdeM1i JVRbmDCmtBwjDX3oCNNd funkd399CxHgCRN3 EUBbjIDmM3ResI9eDyGv OVYqXKCcB2DzmIFsRYcn C766DRshSdV4XWYtxrRq M9ZcFUGsvXwrAfX2 l0S8Bd9Gf7WkcsjmM0Sa mXApIcKhFdybRCi3H8Ic PjwvdHI+PX26DHQpYK34 ARl9QMU0mTfxNIwu SWMcJ4KbfL2jTyUfKYYf ZGRkOyc+PHRhYmxlIHdp ZHRoPScxMDAlJyBzdHls DM1kSx6oLXJrPIFs uHacoEPuCwTrd5dsOXRv CEtxPH9uxJulJ8EdtVS8 YYAuq7z9Vu78H13oI1Vz dXA+YUMrkBS3iSA9 mZ9nGpDgKxW4HXmeJ527 UsTpqLEsMwezw9ipl4sj iEl3IwU9ZVGrzyNevMwj DKC7s5JkBv50P39n IHdpZHRoPSIxNSUiIHZh eHbojo1pwN0zBk1+PGNv fGE6wXW8vQ5yTrIlYzJ3 RIqiU614YgLvkEWc Fwvwx0vyn0xqpUk1CzAt JIYbjiZojPppJQA0n9Qo Wg53U4TfbDgpg3DlQzp5 zq03fHCiq8Y3uVY0 V0DwSPFiiqgwmLEcdHmg SZ0cXXFtbvjiBXNtiO3s CBTqN1g1DcDhVoM4QCby L5DllhK3MYEagJIo QWKorHWVvE7gvbyoc7zn wandBuEoYGLmNBu1QGu2 ZVZwlEbtCpArGSA4PbG1 LYM5tNJgiX4mnNhz lifetO8nYhl+ZBS6qNXj hFAYPI6sHfszxIQ+PHRk XVD9pAcrYRwhYFVpyO7c RACsW6g2HvLiYsV3 HCvfG2AtuzE1CMIkcOUj CXCekMWNqZ3neinmf4qr yrfiMtWfEUVxWRn9KSy5 LWFsaWduOiBsZWZ0 AvU5AIJ4jHYvwX8otFli mzkdiB6iSsz+QmlydGgg MEN7SQi4K1CnTfm0NGQf bGmdTD3tpHXgGSqi Sx7eeDiafPjpSJ0lCGOv legnh219EvIvx7kgJQGc oGGoGVjnZQH6U67gh4U5 MMCxBHGoTKE0yMB2 xX8qxTzispbfrWBubRzj ldXwoUonHNgzQKzxZ385 QQBpoFouCrCxYWu4Q2Uc Oqr9BNYvtCkwEV7d yGWjLUhsGa2vuUxfhEzw DA0dOKLihyyrj512RbYu m4ioCJQupPEpPBieUXX0 T36or6R7CBUvIOTl FUK6rPG0bZ4ygZtagzxs bGVmdDsgdmVydGljYWwt HDbgW074JAAhjHruLsXs nCl5G1OeAyc5HOAu xVqpLS6blCMtNSfzJl0a hHdpyQvqXP3lPMOryztn d904WrFue9wgNTTsgBYl DNgzLMP8J67ye1U5 USJfBRTqLTD3dTJ3dT7a bGlnbjogbGVmdDsgdmVy eGhrIUbaFBgeC085OSTf cDsnPlBhdGllbnQg YHbyYXi1Z9EeDijoiVM+ AE96UVLfTV04vDNocVJr o5ewoQu8HdRxBGTmJFQ3 oVsiFBxur6ArYCOr M29rlFEms0M1QVUnpBkv lCOmFnTwqNS1wB8jVKmg hoovi8kaspwfSaikt1ni zp91hV99O91jIIvw ZHRoPSIzMCUiIHZhbGln gu9plJ6yJk8+PGNvbCB3 xSB1zN5iTNFdTeH3XNvh C087SvFffPPiYkbi h7npn2zrbXx7QaZ8BAOf cwEbrZfdHGF6f8UyMk28 Z48mSCxmKIMeQTAxTDAg DKDtuRkeiq6bgQ9z Ii8+WHYqyQH8vGS1rK1c QwBjJtC3QMltQ730YnEv uSVbNspdI77tA9CfzCZ+ FJKeSft2JYUooUxj AC0zlSXaUNktKu9bYPP6 BmJeBlWpIRowL5PtZKFu eflbsgrzpWM2FHEzKQMd sP20Np4yvWerJJXo cDYBqO7kynrqg9rmvkkl AaMpEEBlPRv9ZNm7BHQr rFbzQwEdQUP9BuR2OCE6 cLGlwN5hbSbhssgp zA9qH8ZuGBRtoqcwCk49 gD1mSpNsNtV1PIarNsy+ L5cNFtUNIAurH3uDCUXA QSaJTJ9KVGizrXU+ HCDkHCG0sKrmOIasOEQp uJ9dOBXbP9u1TgXuQlG3 VTggA4YpWUXhvsbiEz72 rG1bAbQwQpC3OEpv N7QrkhU6AYKosUZoLEuz QVR1L30ty1K1QORtYCPa EPF1iUS4pZ3dwFjsrbtn bGVmdDsgdmVydGlj PEqmSSgsM212ILXmjXbm VjW8YeLuFuHbAXB3Z6Jq Fbu8SQHitAhqCB1wxNNw XZqhXt3kmNhsgGgz UK2kKZYpxkytURQemS2m PKKelRHgoMpkVF1kQKGv dgpmr363DjOcPVX4ELOa jNHqK0VmpQ2dZfUz URXzDMOnH1PlkQVlHTan C547PFduFaW6EVDsacRk P6TaMMYvsFyaTkF5v2V6 De7wMYNTIMUkssxd dGQ+SCYeZSQ1nXdfJSix RCWuuG5dYLXpK9r9ZgYh FvU8IGndA1DyHKOqznce Dp72pA6hNsEnLyU6 RYemZ3SvyuV8MRLncDWe VBcqQBZ4M72an2W1HAQu ZROkGOF9iHM0mR0ibZll bjogbGVmdDsgdmVy xFunHVopDYtnT206APTi cDsnPkZFTUFMRTwvdGQ+ QZVhCMB9aOmuGUucXJJp rK9eMCLyY7k6TxOf YyC8BYihO4TtBWQulzec Jr84vK4cNbJsJwH1ZXcz N2YwnpS5ZSRnyTDcYNvv BZM6G04zy6S6WGAk PZIpMVW8pDS7nS6crLsw bjogbGVmdDsgdmVydGlj PXmyBMjpE532WWHokMsq TwYtDDOvZC4wcHmv dGQ+SM61ce44P2ObUxrz Ool3GZNmJCO4qEO9jY0u KQXbZNmak6T7dGX1Z0Ie syUfsc1yu6ztASYo RIszH14gqGBmb9Z2QWDq rXS3VNGeyRbfIxMumK43 Oyc+MZFheYjtp3MhVwsd i8rdc3rcbHz5SaAe YEXcluFkiOkyUUS7d9Lj Qe15H33iPRyrGVZwSRAv OMHyCALsvJnzyz5srC9y Ii8+LRMjhWY6kEV3 uI7sGyLiNxU8TZptY531 LeCshGKzNmijk8dgf9au gOn2VyLrUYIumfXccWbq NIS7i6WtAo71J8Zs eUtdp4PgJlg5po13zQCf h8B8hAB0L4DgRZMxsvit gVJkhDghJH6nIDFxpmrv RCWagM3aOROnP2d4 GuIfHaW6SNxmH4AeylO8 SWTjdPOvRKJlhIDUqQ3e gctoy8zjydanKpLpAIYf IDl0VTi8WBWltKop QwFwCHQ8FeE1QJZ0eNPy vE8swNcnpvwpqC1tFmy+ OFt2d5mryOGyWY5lsNC7 TP05HO59wIHnp7Z8 jNU8S6RjVNUikqxcuuea nOA6RJClALGvrU60Ac3a pNcnSq3vALXcYBA6GFKu xMYiL4TufC0pBlQn LWQgJDLhG7JwnVIsSHhx V333THbzNdG6MZReihCf F0VzTXFkfWtgDaU2r6U3 Nz1HOS68LT95OM11 vQIsw2D2uJB6W4EfRHXt kabpavcovPH0GETmVEYt wP51Fw6drViwRd1eFAIt JOZ3ERQfgYTuH6Yc fO5qAwBzFGAnQVVgL4Fb kOZvDNrsQ871CUffHlY6 VUVrmfRzU6CgSNKzzTvu WkT6h0R3Zi8QRg97 SZ41ZI59fCSfr3H9tPH1 F4McNWBlryypclaqlVR2 BECrHVWrqK16Jt0xcOla Ob4vFLLxPLD8BNDj cEWrP5KynL3qRmMjNEPc ZNFmD7FkgHDdMKffB261 LBltMhE9GWMwabBsR3Qe SCEofQwiViU3u8R5 Zn9XBLcinwb7A2MnDian dHI+RX90JMZcXK88fKIn kKRzq2aggUf6NiErOUXg ZUG3sAouINdih5Jb ZXI (more content not included)... [facility] Coding Summaryon 03-05-2023 Coding Summary HTMLBase 64 YhxgsxcyADg6eTr+PGhl YWQ+CH8VPYAvI33hcKIy mI1iV2RIOFkREdvrMLPK XElEPbAqtfNmSJ9qrEYb ZXJu IC8+CF0bBJIjAthocRSq v5W3oMT6E74gnu7iTQux nHQ7MDFuAxYrgfwdi1yy lNz8YQisBayuYyEv USMdkZ01VEB4pR00Uz02 sPNzpEEnp0zlxKm8JsHn KWNiSRS2aGabDQuhj6Nm CKLdF03dnGBmu6F1 IGNvbGxhcHNlOyBlbXB0 uK5lFUhgstxgn2fuzpjb Dzl7kh97zLXtm5U0pXR8 Y5VapwM0ZYDbiJZw BwxueJZIvH4enlfch3xv lftvZiMeSLHgOSc1LWi0 WLWamCmpOlYvBN86HDH3 KPHwiuAzB6FoLZKg xBycDlD5f0F5Ua5SE8SA PvavE2CPRSCVIOjzkJX+ IM83zj37T9PxYkqrTnz3 DBPvRBT8cUW6sS6k KUVtRNraa7Z4xTO3R1Nj kuEykd9xe2hyVTFzIHwi A25slBMlf3V0HEAxeGI0 UQGbcFjnDmLsqZ18 Oyc+RCCneIewp0WbMzvo y5jgr0nzbUm4UyzzTBOa jlWbuNhrKJU2l0MrKw0z ELZyaLJ2aEM3tG4r AuYuGiU9TDpoH585BtJk rWWlIcazR99qO3BsrDR+ KJNcDku9BMNjiPzzDD4y Q4QgLPPgxioyaTZy zCatZQ8wKIMmqjklZWPi yP5dNIVyI8j7CbEyRjT7 YJpqE0EcCHTcqtqsRp27 qG6qOeRcNmC6IDzm U2HzigQ2UPFgiIYmSJeg PXY1U62ci0R1MSMrXLDa PAJ8hHA4lU6adUitqtud bGVmdDsgdmVydGlj BGenGXulC638HBPkwGtr PkNvZGluZyBEYXRlOiAg MTEvMjgvMjAyMzwvdGQ+ WNFvKTW9tYcbYZFo oZJeLEaaXw1ewGmypTqk AH1uPWDnsjauEVFkqQ9j GSXziIYqpBlzEQ3hEWWp ucfzk034CqHtIYT1 XJBioWFjC1AqoC2fExSm ACNqHTBpQ3HttYFkDVko J820TVxwTsH4TKRtwdOv H9QfVCTgpFzhMfJ9 a1P6Sw2Na3IyettvX9Nc zAOhZfRpJjwkFRq9X3Oy PjwvdHI+BX09KBTiNX87 DLs1FUE5vLzdFFrd HVRwA1LlzA4uVrYzGZVg ZGRkOyc+PHRhYmxlIHdp ZHRoPScxMDAlJyBzdHls UF7lXd0kKBOoHQKw iFlcxWIsWjPbm6wfSYCn CClzFR4kmVnkK2JmpEN1 VGSqo0i4Aw03H98jY8Zu dXA+YMQgrMS7vKV6 fR3rStMeDoI0IKwxL470 TgGzqNCfWkxdz9rok0gb wPf9WoO5XZXequGitSvf NTT4j5GvPs05G18i IHdpZHRoPSIxNSUiIHZh kByxio0avY1tZp4+PGNv fGJ6rSH9dB1kHpRrYgY9 CEonR137MzWfbIJs Kyyor3yqs9hwdJz6ChHq JEZgksIhzSpvRRH1p9Ut Io44H6BtlEdyp2UkUay7 qb84jVXwk0T0uHP1 D4NkBNWjldtuiURyhXbs ZI8wMURliamoWDWvlY1u SKNkW2x8OiOoYpS5UAiy I5XbvwM3BVBxyISh GYBobZWGnQ2rawgwc6sv umwrJwGmPAEvPNh8PPk8 BEVfeVboAjWoPOQ1ObW7 SCW4oMArvE6jeOdz onpfhV5xVjz+AIX2lQXn lFDICU9pXhvouOM+PHRk TJQ5wPecOXnuWIApvJ5u YHAqW7j0JtZaTuG4 QEvuF6JukvY8PBPcwTVr KRLoyEPIcP8mtazqh8zz kjnrDdIfMXPxRWu9UGm4 LWFsaWduOiBsZWZ0 CfF3WEA0wMPqoQ2ysUyx nakxxF2cRrf+QmlydGgg QHA0BEv0X3UbZth5LTOj oEooFO8mtAFnSFjo Ps5ubGbdzMusQM0vBMSv veqkq289RsIbj4mwDHSr bDPyNVyfDTS2C32zl5W9 GTTrSCQpNMI2lMV9 vB8kbZwhqdlgyKHmnXoo hbMpiMikKDalAXhiL948 YUTypRayFmIkEPm8X4Zj Cil7QYFfaLbsPB7f pCFuXJvlLw4yrZvhiJog ZW2eEXAtevubu128NrBy h2ddLFKjtFAiHUxeJWK7 X35kc0J4ZMBjPWRw LSH0uZE6yV3epTonutkr bGVmdDsgdmVydGljYWwt MTspG774MCOlfAnvXzUy nZf7H2FhJlk1YMLi hUzaYK0liNZfJVlyWn1f wBjcpUyeIJ8xXXOamohb b960WdZuc5hjGEAptXQu KFlcFFC2E33xu4V4 JUAtDLXbUEG8cFX7rM9f bGlnbjogbGVmdDsgdmVy dDnqTRbdFAqwB495NPOz cDsnPlBhdGllbnQg PLfmOAm4A2MwZaitvLZ+ BQ38NUNuXM70tUOvwMTo i7hfnLk1EzUtFEWrFPF9 xBjnRJono5IhCWEs N85kbEXml1U3EZQijQck rTQgIsQssBV9lJ4zLHig jbgns2thkdypVsqry5gl rq61pV89U58uSNzg ZHRoPSIzMCUiIHZhbGln cs2raH8kTb2+PGNvbCB3 qVD9pS1mRCNcUrM5UGsx H904OaAktEPsZytt i6rvp4necYk3GqH1UAZs uuLjaQhrDTH6u6LjTm65 M48wACzaQYCsCMEvKQEv PRMqeBmvwq5hsU3z Ii8+PZMosAM1gWE1lU2i TpNkVxA4UBwnR703PvRt zBYoQkhfA61gT8JkoUX+ VZVgCqn6YWRirEqt QR8unGWhFAzmEn3gTVZ4 JxWzFbLhVZirF4ZtYAGs kgtieqvyeBG0DPSfWVAo kI46Li0mxJdaIVKh tZBQnT4eotbpo0jcwemh DoEwVHUmPOc0TEy7AMPm kHjwXiUgUVW9QvJ6OWJ8 hIIwhS0xpHszlgnk aD6wH1ZpIQBahjluZz60 lH8tUaMuGgG4GCjvPpp+ B9gGTqEEDOxjQ6gHVUSS NJvBDK0YWMpjoPK+ PJKjAZL6bLqsQAzgLJGs lU6zWPOfA3t7LhFzWlX0 ZEluW1ReASGqumjbVp38 nZ4eUdNrShQ1WLsr E6IkxwA7CDSowJSnLWuk RXC0Q67oj9A3ABHgVGJm UHP2kXX9jW5zuCcsznbr bGVmdDsgdmVydGlj TXenQCtrY310NBKerShp KuO6LgFvJwDlBFN8Q2Ec Jqa8XVEzdZtiDW7oqWDa CKnkTu6hyQkyoHzi BO8dHAZmlnsbQGWsrK5w HUEkeBTnaSebUB8jVPIo ujvxn560PxXpUXF2SWEr eVXeV6FshH8fOwBz FIAiIWXcO2VhkEXbSJef O475BUchQkZ0MCBixsYl E8VbOUQdjTziEzF6o7S1 Li0pCGYVCNMubpkn dGQ+OLYfLAX9iJqcXHfb WOSskA7mSDVmD2w8RuNq JsQ9MOiaG3XyZCZuysje Zh42iE3gWwQjRiR4 VSuyP3OipvT9BAWtuQEc UVlqNIA7S84ea8D6RZKd RAPsXGR0kMX8fS9baKii bjogbGVmdDsgdmVy yLkzCFdjFNooY234AIBy cDsnPkZFTUFMRTwvdGQ+ GEXgXMP9uBngPFnbRUSl hM3oTZRaT7r0VxAo LgH3KHodU4WgULSeiqqs Wq68kL2iEuPpLyE7ZWkx G2CputX0MBOtoZDhAJgr YJG4L65ha7V4PUOs TSDsVUV8fFC9uB2ezFgt bjogbGVmdDsgdmVydGlj CNtuSLksR946JWFhuLmt Wp5YSI48UZ94E7Kf PjwvdGFibGU+PHRhYmxl IHdpZHRoPScxMDAlJyBz aStdJM8xHr0vOOQeYMCj qDvqxRUbDiRqe6xs YLAeFAjhOZ9vbWwaH3Rv kJQ1XSFcm7t9Wu78S61q N4FhtMF+KXOqnHU5lCV0 fK3vPbLvGmR3OAxc R559UnKbwPYxWschn9ox c6rspXv6SbIcWAIenbQw kCbcEZG6d0QrPh89V19a IHdpZHRoPSIyMCUi VENklMbarf4hwQ7tEz4+ ZTEnsKS8iFA3tI7dRaJg JwW8IYkeG627ZgGsvOQl DtlyR54wO4IpdSO+ YBObRqb0KJEvvUniZC1v dVOpYOfjEa9xBYR3WpEa QdKfAChgL5WaECSwnsiw xnquvRV5KXKsUTPq zO71Hn9waGpgYo0zWOLj VWK1YMNwfNJeQ0QmqS2c ZlLfMQZiEPGtG7EzyBMc BCmwX593XFavAeZ2 FQTmgiLgP5IdWTIxjFbw UqQ9e7Y6Xx5MvGuzdJUe PC6xUqNpHJs3Q0IrNcv9 BNCttUukMQ2zyGQs EOmfTt5fcTlxgOzyAM7j EOJspmnez103OuPrm1qh EOOctIFcTKiqQFD5I29o j5S1LOKwXXArXGI0 xSP1zG4hoDfoueqgjCYp dDsgdmVydGljYWwtYWxp H298KNTkeViyKgOJMqd6 G0HaOkv9WSXrdLes CS6imLTnBOppVx1rmCvo vXngTC6tTOLnjvvmb197 HvDzj9olITGkrQWgTPhr IQR8B81ot8Q0CAIg YUAbFIC0cHA2oY7jgLvi bjogbGVmdDsgdmVydGlj XTkbTTclT854IRSzoZuq Og2ZSrf9F7MfFde4 OKVqnQukVL1mmAYmNZpb Xh9pkRafcWsiXP4yIIRb jzjpc583LaJwi9ahYRHv kCAzSBngPGK5J67z s6H1RXUcMLOmKQJ2qFU0 gK9kdQhmkrnfgYOitJqm seDxqHwrTBlhLJkpF033 IHRvcDsnPlBheWVy OjwvdGQ+UF64kc54D6Ip PvhzEdd3NKDqPZE4hVK2 cX8iZIMyTJkax5Z1jFK7 G1NpacTlhc3bd0ko YXB (more content not included)... [facility] C Throaton 03-03-2023 C Throat Ordered by Radha. Normal throat jonny isolated No pathogens isolated [facility] Comment on above: Performed By: #### 6 [id number] ####[facility] (DEFAULT)[address] [place] [address] .QC SARS-CoV-2 (COVID-19)/Fl u/RSV (Gene[employer]pert)on 03-01-2023 Internal Control Pass [facility] Comment on above: Order Comment: Order ed by Radha.[[email or web address]] Performed By: #### 6 [id number] ####[facility] (DEFAULT)[address] [place] [address] COVID/Flu/RSV (GeneXpert)on 03-01-2023 Flu A (GXpert COVFLURSV) Negative Normal Negative [facility] Comment on above: Performed By: #### 6 [id number] #### [facility] (DEFAULT) [address] [place] [id number] Flu B (GXpert COVFLURSV) Negative Normal Negative [facility] Comment on above: Performed By: #### 6 [id number] #### [facility] (DEFAULT) [address] [place] [id number] RSV (GXpert COVFLURSV) Negative Normal Negative [facility] Comment on above: Performed By: #### 6 [id number] #### [facility] (DEFAULT) [address] [place] [address] SARS-CoV-2 (COVID-19) RNA MILY+probe Ql (Unsp spec) Negative Normal Negative [facility] Comment on above: Result Comment: Perf ormed by PCR methodology. Performed By: #### [id number] #### [facility] (DEFAULT) [address] [place] [id number] ED Clinical Summaryon 2022 ED Clinical Summary [facility] - Emergency Department [address] [place], [place] [address] ED Clinical Summary PERSON INFORMATION Name: LIA DESAI Age: 22 Years Sex: FEMALE : 2000 MRN: Acct#: Visit Reason: Cough; Throat pain; COUGH, SORE THROAT Arrival: 03/01/2023 14:12:36 Discharge: 03/01/2023 16:04:00 LOS: 000 01:52 Check In: 03/01/2023 14:12:36 Checkout:03/01/2023 16:04:00 Address: [address] [place] [address] PCP: Provider, Unlisted PROVIDER INFORMATION Provider Role Assigned Unassigned Soniya Strickland CLASSROOM COORDINATOR Nurse 03/01/2023 14:14:28 Tom Smith DO ED Provider 03/01/2023 15:04:27 VITALS INFORMATION Vital Sign Triage Latest Temperature Tympanic Temperature Temporal Artery Pulse Rate O2 Sat 100 % 100 % Respiratory Rate 20 br/min 20 br/min Blood Pressure /86 mmHg /86 mmHg MEDICAL INFORMATION Medications Given: Allergy Information: Adhesive Bandage; Zithromax PHYSICIAN DOCUMENTATION DISCHARGE INFORMATION: Discharge Disposition: Home Discharge Location: PATIENT EDUCATION INFORMATION Instructions: Acute Bronchitis, Adult Follow-Up: With: Address: When: Follow-up with your primary care physician in 3 to 5 days unless symptoms are resolving Within 3 to 5 days Comments: Call for follow up appointment Return if symptoms worsen DIAGNOSIS: Asthmatic bronchitis Patient Understands: Yes - Patient/family/careg iver verbalizes understanding of instructions given Comment: [facility] ED Note - Physicianon 2022 ED Note - Physician Patient: LIA DESAI Age: 22 years Sex: FEMALE : 2000 Associated Diagnoses: Asthmatic bronchitis Author: Tom Smith DO Basic Information Additional information: Chief Complaint from Nursing Triage Note : Chief Complaint 03/01/2023 14:19 EST Chief Complaint pt was seen at urgent care 1 week ago for sorethroat and cough, all swabs were negative, placed on doxy and capmist bnut pt states she is not any better . History of Present Illness 22-year-old female to the emergency department chief complaint of URI symptoms for 7 to 8 days. Patient states she was seen at an urgent care approximately a week ago. Patient states she had swabs done which were negative. Patient informed me that she was givencap Mist but when I asked her about antibiotics she denied stating that she had not taken anything else. Patient states that she had a fever initially around the time that she was seen at an urgent care but none since. No recent travel no calf pain or swelling. Does not feel lightheaded or dizzy. Cough occasionally productive. Denies chest pain Review of Systems Constitutional symptoms: Fatigue, no fever, no chills. Skin symptoms: Negative except as documented in HPI. Eye symptoms: Negative except as documented in HPI. ENMT symptoms: Sore throat, nasal congestion, No ear pain, Respiratory symptoms: Cough, wheezing. Cardiovascular symptoms: Negative except as documented in HPI. Gastrointestinal symptoms: Negative except as documented in HPI. Genitourinary symptoms: Negative except as documented in HPI. Musculoskeletal symptoms: Negative except as documented in HPI. Neurologic symptoms: Negative except as documented in HPI. Health Status Allergies: Allergic Reactions (Selected) Mild Adhesive Bandage- No reactions were documented. Unknown Zithromax- No reactions were documented.. Medications: (Selected) Prescriptions Prescribed Capmist DM 15 mg-400 mg-60 mg oral tablet: 1 tab(s), PO, q6hr, for 5 day(s), not to exceed 4 doses/day, PRN: for cough and congestion, 20 tab(s), 0 Refill(s) fluticasone 50 mcg/inh nasal spray: 1 spray(s), Nostrils-Both, BID, for 7 day(s), 16 gm, 0 Refill(s). Past Medical/ Family/ Social History Medical history: Resolved Disease caused by 2019 novel coronavirus ([id number]): Onset on 11/23/2020 at 20 years. Resolved. Comments: 11/23/2020 CDT 16:07 CDT - SYSTEM Problem added by Rule (IC_COVID19_AUTO_PRO BLEM) following 2019 Novel Coronavirus (CoVID-19), MILY L from Nasopharyngeal Swab collected on 22-NOV-2020 16:44:00 EDT tested positive for COVID-19. no history ([id number]): Resolved. Contact dermatitis (68303949): Resolved. Pharyngitis ([id number]): Resolved. Cough (57033541): Resolved.. Surgical history: Tonsillectomy and adenoidectomy ([id number]).. Family history: No family history items have been selected or recorded.. Physical Examination Vital Signs Vital Signs 03/01/2023 14:19 EST Temperature Oral 36.7 DegC Heart Rate Monitored 77 bpm Respiratory Rate 20 br/min Systolic Blood Pressure 465 mmHg HI Diastolic Blood Pressure 86 mmHg SpO2 100 % Oxygen Therapy Room air . Measurements 03/01/2023 14:21 EST Weight Dosing 113.400 kg 03/01/2023 14:21 EST Height/Length Dosing 170.180 cm 03/01/2023 14:19 EST Height 170.180 cm Weight 113.400 kg Body Mass Index 39.160 kg/m2 . General: Alert, no acute distress, Occasional harsh cough. Skin: Warm, dry. Head: Normocephalic, atraumatic. Neck: Supple. Eye: Pupils are equal, round and reactive to light, normal conjunctiva. Ears, nose, mouth and throat: Oral mucosa moist, Oropharynx with mild erythema no edema no exudates no asymmetry. Cardiovascular: Regular rate and rhythm, No murmur. Respiratory: Lungs are clear to auscultation, respirations are non-labored, Prolonged expiratory phase. Musculoskeletal: No calf swelling or tenderness. Neurological: Alert and oriented to person, place, time, and situation, normal speech observed. Lymphatics: No lymphadenopathy. Psychiatric: Cooperative. Medical Decision Making Differential Diagnosis:: Bronchitis, upper respiratory infection, asthma, pneumonia, dyspnea, allergies, influenza, sinusitis, pharyngitis. Results review: Lab results : Lab Flowsheet 03/01/2023 14:27 EST SARS-CoV-2(Covid19)P CR(GXpert COVFLURSV) Negative Flu A (GXpert COVFLURSV) Negative Flu B (GXpert COVFLURSV) Negative RSV (GXpert COVFLURSV) Negative 03/01/2023 14:25 EST Streptococcus A Negative . Reexamination/ Reevaluation 22-year-old female to the emergency department with URI symptoms x 7 or 8 days. Flu and COVID testing and also strep testing in the emergency department negative. Discussed with patient we will prescribe amoxicillin, Medrol Dosepak and also an inhaler which has helped her in the past. Strongly encouraged to follow-up with primary care physician in 3 to 5 days unless symptoms are resolving. Return for any worsenin (more content not included)... Normal [facility] ED Patient Summaryon 023 ED Patient Summary [facility] - Emergency Department [address] [place] [address] PATIENT DISCHARGE INSTRUCTIONS Patient Information Name: LIA DESAI Age: 22 Years Date of : 2000 Reason For Visit: Cough; Throat pain; COUGH, SORE THROAT Arrival Time: 03/01/2023 14:12:36 Primary Care Physician: Provider, Unlisted Attending Physician: Tom Smith DO Comment: Visit Diagnosis: Diagnoses This Visit Asthmatic bronchitis (J45.909) Cough ([id number]) Throat pain ([id number]) The Pharmacy at [facility] is open Saturday through Saturday from 9A to 6P and Saturday and Saturday from 9A to 5P Prescription Information: If you have been given a prescription for narcotics, seek immediate medical attention if you have any difficulty breathing or any sudden status changes such as confusion and sleepiness. If you or anyone you know is experiencing suicidal thoughts, mental health, alcohol and/or drug addiction problems; contact the [facility] 29/10 Crisis Hotline -Text 2ASGS bs 557987. If you received any narcotics, sedation, or any other medication that causes drowsiness for the next 24 hours, unless otherwise directed: ? Do not drive a car. ? Do not operate machinery such as power tools, lawn mowers, drills, sewing machines, or stoves ? Avoid alcoholic beverages and drugs for allergies, nerves, or sleep ? Do not make important personal or business decisions or sign any legal documents With: Address: When: Follow-up with your primary care physician in 3 to 5 days unless symptoms are resolving Within 3 to 5 days Comments: Call for follow up appointment Return if symptoms worsen Medication Information: The exam and treatment you received today in the [facility] Emergency Department were for an urgent problem and are not intended as complete care. It is important for you to follow up with a doctor, nurse practitioner, or physician?s general office assistant for ongoing care. If your symptoms become worse or you do not improve as expected and you are unable to reach your usual health care provider, you should return to the Emergency Department, we are available 24 hours a day. For those patients who have received Radiology results, the interpretation of your X-ray as given to you by our Emergency Department physician is only a preliminary report. The Radiologist will review your films and if there is a change in the diagnosis you will be notified by phone. Please make sure you have provided a working phone number so we can reach you if necessary. In the event that you had a lab culture while you were a patient in the Emergency Department, you will be notified by phone if there is a need to change your antibiotic. Please make sure you have provided a working phone number so we can reach you if necessary. [facility] Emergency Department has provided you with a complete list of medications post discharge. Please inform your chief construction inspector/provider of your visit and for further instruction on these medications. Any specific questions regarding your chronic medications and dosages should be discussed with your primary care physician(s) and/or pharmacist. New Medications [id number], [address], [place] [id number], [phone] albuterol (Albuterol (Eqv-ProAir HFA) 90 mcg/inh inhalation aerosol) 2 puff(s) Inhalation every 4 hours. Refills: 0. amoxicillin (amoxicillin 875 mg oral tablet) 1 tab(s) Oral 2 times a day for 10 Days. Refills: 0. methylPREDNISolone (Medrol 4 mg oral tablet) 1 packet(s) Oral once. as directed on package labeling. Refills: 0. Medications to Continue That Have Not Changed Other Medications dextromethorphan/gua ifenesin/pseudoephed rine (Capmist DM 15 mg-400 mg-60 mg oral tablet) 1 tab(s) Oral Every 6 hours as needed for cough and congestion for 5 Days. not to exceed 4 doses/day. Refills: 0. fluticasone nasal (fluticasone 50 mcg/inh nasal spray) 1 spray(s) Both Nostrils 2 times a day for 7 Days. Refills: 0. Visit Information Allergies: Substance Reaction Symptoms Type Comments Zithromax Drug Adhesive Bandage Other Vital Signs: Vitals and Measurements this Visit (last charted value for your 03/01/2023 visit) Vital Signs This Visit Temperature Oral: 36.7 DegC Heart Rate Monitored: 77 bpm Respiratory Rate: 20 br/min Systolic Blood Pressure: 165 mmHg Diastolic Blood Pressure: 86 mmHg SpO2: 100 % Oxygen Therapy: Room air Measurements This Visit Height/Length Measured: 170.180 cm Height/Length Dosin.180 cm Weight Measured: 113.400 kg Weight Dosin.400 kg Body Mass Index: 39.160 kg/m2 Problems List: Problem Onset Comments Acute depression Anxiety Chronic post-traumatic stress disorder (PTSD) Patient Education Acute Bronchitis, Adult Acute bronch (more content not included)... Normal [facility] Strep Aon 03-01-2023 Strep procedure control Pass Normal [facility] Comment on above: Performed By: #### [id number] #### [facility] (DEFAULT) [address] [place] [address] Streptococcus A Negative Normal Negative [facility] Comment on above: Performed By: #### 6 [id number] #### [facility] (DEFAULT) [address] [place] [address] C Throaton 02-28-2023 C Throat Ordered by Discern. Normal throat jonny isolated No pathogens isolated [facility] Comment on above: Performed By: #### 4 [id number] ####[facility] (DEFAULT)[address] [place] [address] ED Clinical Summaryon 2022 ED Clinical Summary [facility] ? Urgent Care [address] [place] [address] Clinical Summary PERSON INFORMATION Name: LIA DESAI Age: 22 Years Sex: FEMALE : 2000 MRN: Acct#: Visit Reason: UC - Sore Throat; SORE THROAT, CONGESTION, BODY ACHES Arrival: 02/26/2023 09:55:01 Discharge: 02/26/2023 11:28:00 LOS: 000 01:33 Check In: 02/26/2023 09:55:01 Checkout: 02/26/2023 11:28:00 Address: [address] [place] [address] PCP: PROVIDER INFORMATION Provider Role Assigned Unassigned Errol Ortega ED PA 02/26/2023 09:58:25 Birdie James CLASSROOM COORDINATOR Nurse 02/26/2023 10:17:32 VITALS INFORMATION Vital Sign Triage Latest Temperature Tympanic Temperature Temporal Artery Pulse Rate O2 Sat 96 % 96 % Respiratory Rate Blood Pressure /75 mmHg /75 mmHg MEDICAL INFORMATION Medications Given: Medication Dose Route dexAMETHasone 10 mg PO Allergy Information: Adhesive Bandage; Zithromax PHYSICIAN DOCUMENTATION DISCHARGE INFORMATION: Discharge Disposition: Home Discharge Location: Home PATIENT EDUCATION INFORMATION Instructions: Upper Respiratory Infection, Adult Follow-Up: With: Address: When: Return to this practice Within 2 to 4 days Comments: Diagnosis today of viral upper respiratory illness with cough/congestion/bod y aches. Your rapid strep test, covid, and Influenza A/B was negative. Throat culture will return in 3 days and if positive for bacterial infection you be notified by telephone so an antibiotic can be prescribed.. -Begin OTC Capmist DM 1 every 6 hours as needed. (cough, decongestestant, and expectorant combined). Do not take with other OTC medications. Push liquids, gatorade, cool liquids, popsicles. -Begin Flonase nasal spray to both nostrils. for the next 7-10 days. -Take Tylenol 500mg every 4-6 hours. Please return for medical care if fever over 101.5, difficulty swallowing, swelling on only one side of her neck neck or back of throat, muffled voice, drooling, progressive symptoms, shortness breath, nausea, vomiting, diarrhea. DIAGNOSIS: Myalgia; Other viral agents as the cause of diseases classified elsewhere; Viral sore throat; Viral upper respiratory tract infection with cough Patient Understands: Yes - Patient/family/careg iver verbalizes understanding of instructions given Comment: Normal [facility] ED Patient Summaryon 023 ED Patient Summary [facility] ? Urgent Care [address] [place] [address] PATIENT DISCHARGE INSTRUCTIONS Patient Information Name: LIA DESAI Age: 22 Years Date of : 2000 Reason For Visit: UC - Sore Throat; SORE THROAT, CONGESTION, BODY ACHES Arrival Time: 02/26/2023 09:55:01 Primary Care Physician: Attending Physician: Errol Ortega Comment: Patient Education With: Address: When: Return to this practice Within 2 to 4 days Comments: Diagnosis today of viral upper respiratory illness with cough/congestion/bod y aches. Your rapid strep test, covid, and Influenza A/B was negative. Throat culture will return in 3 days and if positive for bacterial infection you be notified by telephone so an antibiotic can be prescribed.. -Begin OTC Capmist DM 1 every 6 hours as needed. (cough, decongestestant, and expectorant combined). Do not take with other OTC medications. Push liquids, gatorade, cool liquids, popsicles. -Begin Flonase nasal spray to both nostrils. for the next 7-10 days. -Take Tylenol 500mg every 4-6 hours. Please return for medical care if fever over 101.5, difficulty swallowing, swelling on only one side of her neck neck or back of throat, muffled voice, drooling, progressive symptoms, shortness breath, nausea, vomiting, diarrhea. Upper Respiratory Infection, Adult An upper respiratory infection (URI) is a common viral infection of the nose, throat, and upper air passages that lead to the lungs. The most common type of URI is the common cold. URIs usually get better on their own, without medical treatment. What are the causes? A URI is caused by a virus. You may catch a virus by: ? Breathing in droplets from an infected person's cough or sneeze. ? Touching something that has been exposed to the virus (is contaminated) and then touching your mouth, nose, or eyes. What increases the risk? You are more likely to get a URI if: ? You are very young or very old. ? You have close contact with others, such as at work, school, or a health care facility. ? You smoke. ? You have long-term (chronic) heart or lung disease. ? You have a weakened disease-fighting system (immune system). ? You have nasal allergies or asthma. ? You are experiencing a lot of stress. ? You have poor nutrition. What are the signs or symptoms? A URI usually involves some of the following symptoms: ? Runny or stuffy (congested) nose. ? Cough. ? Sneezing. ? Sore throat. ? Headache. ? Fatigue. ? Fever. ? Loss of appetite. ? Pain in your forehead, behind your eyes, and over your cheekbones (sinus pain). ? Muscle aches. ? Redness or irritation of the eyes. ? Pressure in the ears or face. How is this diagnosed? This condition may be diagnosed based on your medical history and symptoms, and a physical exam. Your health care provider may use a swab to take a mucus sample from your nose (nasal swab). This sample can be tested to determine what virus is causing the illness. How is this treated? URIs usually get better on their own within 7?10 days. Medicines cannot cure URIs, but your health care provider may recommend certain medicines to help relieve symptoms, such as: ? Vjdm-rsd-onsnwsv cold medicines. ? Cough suppressants. Coughing is a type of defense against infection that helps to clear the respiratory system, so take these medicines only as recommended by your health care provider. ? Fever-reducing medicines. Follow these instructions at home: Activity ? Rest as needed. ? If you have a fever, stay home from work or school until your fever is gone or until your health care provider says your URI cannot spread to other people (is no longer contagious). Your health care provider may have you wear a face mask to prevent your infection from spreading. Relieving symptoms ? Gargle with a mixture of salt and water 3?4 times a day or as needed. To make salt water, completely dissolve ??1 tsp (3?6 g) of salt in 1 cup (237 mL) of warm water. ? Use a cool-mist humidifier to add moisture to the air. This can help you breathe more easily. Eating and drinking ? Drink enough fluid to keep your urine pale yellow. ? Eat soups and other clear broths. General instructions ? Take lwlw-fep-cbgalfi and prescription medicines only as told by your health care provider. These include cold medicines, fever reducers, and cough suppressants. ? Do not use any products that contain nicotine or tobacco. These products include cigarettes, chewing tobacco, and vaping devices, such as e-cigarettes. If you need help quitting, ask your health care provider. ? Stay away from secondhand smoke. ? Stay up to date on all immunizations, including the yearly (annual) flu vaccine. ? Keep all follow-up visits. This is important. How to prevent the spread of infection to other (more content not included)... Normal [facility] POCT Rapid CoV-2 (COVID-19) Antigen/ Flu A&Bon 02-26-2023 Influenza A POCT Negative Normal Negative [facility] Comment on above: Performed By: #### 4 [id number] ####[facility] (DEFAULT)[address] [place] [address] Influenza B POCT Negative Normal Negative [facility] Comment on above: Performed By: #### 1 [id number] ####[facility] (DEFAULT)[address] [place] [address] SARS-CoV-2 (COVID-19) RNA MILY+probe Ql (Unsp spec) Not detected Normal [facility] Comment on above: Performed By: #### 9 [id number] ####[facility] (DEFAULT)[address] [place] [address] Strep Aon 02-26-2023 Strep procedure control Pass Normal [facility] Comment on above: Performed By: #### [id number] ####[facility] (DEFAULT)[address] [place] [address] Streptococcus A Negative Normal Negative [facility] Comment on above: Performed By: #### 4 [id number] ####[facility] (DEFAULT)[address] [place] [address] Urgent Care Note- Provideron 02-26-2023 Urgent Care Note- Provider Patient: LIA DESAI Age: 22 years Sex: FEMALE : 2000 Associated Diagnoses: Myalgia; Viral sore throat; Viral upper respiratory tract infection with cough Author: Errol Ortega Basic Information Time seen: Date & time 02/26/2023 10:23:00. History source: Patient. Arrival mode: Walking. History limitation: None. CC: body aches, sore throat, congestion Lia is a pleasant, 22-year-old, , obese female who reports this is her fourth day of not feeling well. She states initially started as nasal congestion when she lay down at night and a sore throat. She states her symptoms are only at night when going to bed. The past 2 nights she has had terrible body aches. She currently states her muscles ache, her joints ache, she says she has no energy and feels like she could just fall asleep. Patient reports she has had significant nasal congestion to the point that she is unable to breathe through her nose for the past 2 nights. She states that she can sleep sitting up but is unable to lay flat to sleep. She is taking OTC alkaseltzer and motrin, last dose this am. Health Status Allergies: Allergic Reactions (Selected) Mild Adhesive Bandage- No reactions were documented. Unknown Zithromax- No reactions were documented.. Past Medical/ Family/ Social History Medical history: Resolved Disease caused by 2019 novel coronavirus ([id number]): Onset on 11/23/2020 at 20 years. Resolved. Comments: 11/23/2020 CDT 16:07 CDT - SYSTEM Problem added by Rule (IC_COVID19_AUTO_PRO BLEM) following 2019 Novel Coronavirus (CoVID-19), MILY L from Nasopharyngeal Swab collected on 22-NOV-2020 16:44:00 EDT tested positive for COVID-19. no history ([id number]): Resolved. Contact dermatitis (85456286): Resolved. Pharyngitis (3298550211): Resolved. Cough (83616639): Resolved.. Surgical history: Tonsillectomy and adenoidectomy (124733802).. Family history: No family history items have been selected or recorded.. Social history: Social & Psychosocial Habits Alcohol 02/05/2022 Alcohol Use: Current Frequency: 1-2 times per month 11/15/2022 Alcohol Use: Past Substance Use 11/15/2022 Substance use: Current Type: Marijuana Frequency: 1-2 times per week 02/14/2023 Substance use: Current Type: Marijuana Frequency: Several times per day Comment: States vapes marijuana about 4 hits/day - 03/07/2022 14:36 - Munira SANTOS, Chloé Tobacco 02/26/2023 Smoking tobacco use: Never tobacco user Electronic Cigarette/Vaping 11/15/2022 Electronic Cigarette Use: Use, within last 90 days Type: Cannabinoid infused Use per Day: 26-50 Inhales/day 02/26/2023 Electronic Cigarette Use: Former use, quit more bill . Problem list: Active Problems (3) Acute depression Anxiety Chronic post-traumatic stress disorder (PTSD) . Physical Examination General: Alert, appropriate for age, no acute distress, Well-hydrated, nontoxic, mild congestion. Vital Signs Skin: Warm, dry, pink, Normal turgor. Head: Normocephalic, atraumatic. Neck: Supple, trachea midline, no meningeal signs.. Eye: Pupils are equal, round and reactive to light, extraocular movements are intact, normal conjunctiva. Ears, nose, mouth and throat: Tympanic membrane: Normal, no erythema, External ear: Canal, normal, Sinus: Frontal, maxillary, no tenderness, Nose: Severe, congestion, discharge, Mouth: Normal, Throat: Normal, gag reflex present, no erythema, not with exudate, no swelling, no palatal petechiae, no uvula shift. Cardiovascular: Regular rate and rhythm, No murmur. Respiratory: Lungs are clear to auscultation, respirations are non-labored, breath sounds are equal, No wheezing, rales, rhonchi., No cough today on exam. Chest wall: No tenderness. Back: Nontender, Normal range of motion. Musculoskeletal: Normal ROM, normal strength, no tenderness. Gastrointestinal: Soft, Nontender, Non distended, Normal bowel sounds. Neurological: Alert and oriented to person, place, time, and situation, No focal neurological deficit observed, CN II-XII intact. Lymphatics: Exam: not anterior cervical, not posterior cervical. Psychiatric: Cooperative, appropriate mood & affect, normal judgment. Medical Decision Making Differential Diagnosis: Viral pharyngitis, viral syndrome, upper respiratory infection, covid/flu. Rationale: Lia is a 22-year-old who presents with 4 days of nasal congestion, postnasal drainage, 2 days of bodyaches. At this time she is afebrile and vital signs stable. She does have ibuprofen on board at this time. Strep negative. Influenza A/B negative. COVID-19 is not detected. Clinically she has a viral upper respiratory infection. I advised her to begin Flonase and Capmist. She is given oral dexamethasone here in urgent care to help with her sore throat. Throat culture performed. Return if worse. . Orders Launch Orders Laboratory: Rapid Strep (Order): Throat, 02/26/2023 10:24 EST, Stat collect, Matilde (more content not included)... Normal [facility] 023 Urgent Care Record [facility] ? Urgent Care [address] [place], [place] [address] PATIENT DISCHARGE INSTRUCTIONS Patient Information Name: LIA DESAI Age: 22 Years Date of : 2000 Reason For Visit: UC - Sore Throat; SORE THROAT, CONGESTION, BODY ACHES Arrival Time: 02/26/2023 09:55:01 Primary Care Physician: Attending Physician: Errol Ortega Comment: Visit Diagnosis: Diagnoses This Visit Myalgia (M79.10) Other viral agents as the cause of diseases classified elsewhere (B97.89) UC - Sore Throat ([id number]) Viral sore throat (J02.8) Viral upper respiratory tract infection with cough (J06.9) If you received any narcotics, sedation, or any other medication that causes drowsiness for the next 24 hours, unless otherwise directed: ? Do not drive a car. ? Do not operate machinery such as power tools, lawn mowers, drills, sewing machines, or stoves ? Avoid alcoholic beverages and drugs for allergies, nerves, or sleep ? Do not make important personal or business decisions or sign any legal documents With: Address: When: Return to this practice Within 2 to 4 days Comments: Diagnosis today of viral upper respiratory illness with cough/congestion/bod y aches. Your rapid strep test, covid, and Influenza A/B was negative. Throat culture will return in 3 days and if positive for bacterial infection you be notified by telephone so an antibiotic can be prescribed.. -Begin OTC Capmist DM 1 every 6 hours as needed. (cough, decongestestant, and expectorant combined). Do not take with other OTC medications. Push liquids, gatorade, cool liquids, popsicles. -Begin Flonase nasal spray to both nostrils. for the next 7-10 days. -Take Tylenol 500mg every 4-6 hours. Please return for medical care if fever over 101.5, difficulty swallowing, swelling on only one side of her neck neck or back of throat, muffled voice, drooling, progressive symptoms, shortness breath, nausea, vomiting, diarrhea. Medication Information: The exam and treatment you received today in the [facility] were for an urgent problem and are not intended as complete care. It is important for you to follow up with a doctor, nurse practitioner, or physician?s general office assistant for ongoing care. If your symptoms become worse or you do not improve as expected and you are unable to reach your usual health care provider, you should return to the Emergency Department, we are available 24 hours a day. For those patients who have received Radiology results, the interpretation of your X-ray as given to you by our Urgent Care physician is only a preliminary report. The Radiologist will review your films and if there is a change in the diagnosis you will be notified by phone. Please make sure you have provided a working phone number so we can reach you if necessary. In the event that you had a lab culture while you were a patient in the Urgent Care, you will be notified by phone if there is a need to change your antibiotic. Please make sure you have provided a working phone number so we can reach you if necessary. [facility] has provided you with a complete list of medications post discharge. Please inform your chief construction inspector/provider of your visit and for further instruction on these medications. Any specific questions regarding your chronic medications and dosages should be discussed with your primary care physician(s) and/or pharmacist. New Medications [facility], [address], [place] [id number], [phone] dextromethorphan/gua ifenesin/pseudoephed rine (Capmist DM 15 mg-400 mg-60 mg oral tablet) 1 tab(s) Oral Every 6 hours as needed for cough and congestion for 5 Days. not to exceed 4 doses/day. Refills: 0. fluticasone nasal (fluticasone 50 mcg/inh nasal spray) 1 spray(s) Both Nostrils 2 times a day for 7 Days. Refills: 0. Visit Information Allergies: Substance Reaction Symptoms Type Comments Zithromax Drug Adhesive Bandage Other Vital Signs: Vitals and Measurements this Visit (last charted value for your 02/26/2023 visit) Vital Signs This Visit Temperature Temporal: 37.5 DegC Peripheral Pulse Rate: 87 bpm Respiratory Rate: 16 br/min Systolic Blood Pressure: 121 mmHg Diastolic Blood Pressure: 75 mmHg SpO2: 96 % Oxygen Therapy: Room air Blood Pressure Method: Automatic Measurements This Visit Height/Length Measured: 170.18 cm Weight Measured: 113.4 kg Body Mass Index: 39.16 kg/m2 BSA Measured: 2.32 m2 Problems List: Problem Onset Comments Acute depression Anxiety Chronic post-traumatic stress disorder (PTSD) Patient Education Upper Respiratory Infection, Adult An upper respiratory infection (URI) is a common viral infection of the nose, throat, and upper air passages that lead to the lungs. The most common type of URI is the common cold. URIs usually get better on their own, without (more content not included)... [facility] Coding Summaryon 02-22-2023 Coding Summary HTMLBase 64 IvxoeaywYSt0vLy+PGhl YWQ+PQ2BVNSzG45dqNSv nS3fE4FGNZsMBvibHMBB TKxVHuVmxtCxAU8grZUr ZXJu IC8+VZ5eNRTsNsvkuUTy m2T2dMG5U53uyw0hLEio gOF2CPQfFzLiseytv6bb fRh2WSpsBupuNjIy JGYqjV36JKK1lP23Km33 uMDrmRJgu4mkzRl4DxEj YBMkPTV1bJimCMrza8Nw RWCuI86abHXik4P4 IGNvbGxhcHNlOyBlbXB0 pO4gWZvjqawvc0zfsjuj Rns5rn52wIHcx2P6aCG2 C5NnsvU6IIAogIOp ArtmhUPPtG0syvlsq1px qnzgHvVnQBLsPJi5HWv9 HLKtmGjoPyQdVM59TXI3 THOyxgUyD0OpJBWu hSjjVtS2o7Q4Yp3DH8SY FtlpZ5CWUIQYDObbhQO+ AN30xh52F0KoVpgyGav0 OEHhRKX9bUS8gS7n BDRwUBzrr6Q7aZV5L3Xt jbZtxc1rh6ylPKCoMIpc U20qlOYqq6X4VNFtpMO1 FFIwjYmqBeBytW50 Oyc+GQZjcCbtp5MmWjwz l6sxg7sxqDw2ZrpmJGKu znNgqRgaHET5i9SsLu2a VCScgBI3tJL6oD7m UlThMeI4KUyaZ856CfAh pGNfZtioN18oN2KavYF+ XJHiInf1VWNiyTmrJW3f Q6JyUWUrnclckBUc bIobLW4eFJUenuzxQBJb kN8lVLGrR7j5TxWfYfE4 AVckF1RbQVYtyziyMj76 tR9qNuSoAjC8IAts F1MvbjK3BFTsfIJgVAuw IPR8A87pm8T0CEPxMSAd LUO8nNT8cS6hrDyjkqpj bGVmdDsgdmVydGlj UXjpKYjcF145OJYfpOxv PkNvZGluZyBEYXRlOiAg MTEvMTcvMjAyMzwvdGQ+ GNEwQXZ0pDbcPOCw tRXxNQndOm9zoHpynBic RR7fKYUpnsdjLESloA1w BYJrtVIkjAncRZ0hTCBz kaprc653EiHmEAJ5 RYWeeUIjN2RmtQ4nDqQw UUClQYTnA5UhpWXkUZub L672VZtvOlO9GZRpvfWb X3AcMZMnsZgcZuU3 d8G4Zk7Vz1LvepqaU0Yf zWGvQySoKdzjGXx7O2Yl PjwvdHI+TR43OQLrWC48 WJl3CFZ7jOrzTCmv URIiM0XymF9zZzCkVRZj ZGRkOyc+PHRhYmxlIHdp ZHRoPScxMDAlJyBzdHls AV2hQg4eJLVpVPNc nKbtfOIyNtZog5lpVPEd YKmxNQ4owVxqE3JwlDE9 PZWen7u3Wr14S67pZ4Sd dXA+MZZtqQP5dPG1 mU2jDzGqCqZ8FKhxS029 IdFasDJpPfbae3wxr8vm wYf4MgX1KJSdolHbhPbn TGM1p8PgFc44X52t IHdpZHRoPSIxNSUiIHZh hDuyki5ewV7vCu2+PGNv eYP0yWY8tN0vJuGuXqJ9 AFjfL189EfHyjXIc Expoy6oie8cvjSi3HiGp QMWdapRudOgdKUQ7j5Je Re49S8BsbPpxe4ToZxt8 hw20aEDhg3L3xNV5 B7NwLADbdohehGDqcQlf PE9eENGsdwrgCRLeeK2t HQMaM7t1SkOlRrR7FMvv K2XlpgL3IMPhcSCx TIBazNEXoD0ywinhw6mx aqluFjIqHJLlAMh4QEs2 GSAepPfpPpTzUIA3UwD7 WFR8pSLhgH9vcUup mksmuD5wSvd+XSF8aIFt nSDEZN5bOzzylMW+PHRk SCN0oCgxJDfuPMSvrM1h WOEdB9g1RlNwUiF2 ZVcaC7NkfeY2IVTwgSFf MBRbfWLPkX9hgmoxb0ju bylkVtYpRTTqFRb5XRb4 LWFsaWduOiBsZWZ0 YpD7STM9oSLgtT7hfGuw fagivY9pUud+QmlydGgg QWJ6XNs2Y4SvRal5PSVg fLoeGF0zcNUzKBks Na3mvZwujPnnAO2hXJAq clntw629LqZkc7xcBTAu zKHeTZpoVXG9B49yq2J1 VIOjIPZgQGT9eWJ8 nU0opFzqnhnbcODthCie nkIhgYgsQWaqTHztB401 JXNoyWuyVbCsROz3Q1Hq Dds4TBNccOmwYW9o oTAwUDewEl6ipCucvWob RS3oRSOqbsqaw320VdWd w0bmCOZvpKTkGJxlEGQ9 J14pc1N4RUItEJDi EQS5uQM7qM2fwHhjdsjm bGVmdDsgdmVydGljYWwt SJfeH945QDTwvLptIyAv wPz8X0ViBki1NGWo iZtjRI6bjSWeBVyoSe0q rGeqbRlhQM4fJBRipceh a909RsSeb5mvLFNlpDFw CWghWZI8S50ve7N6 FIFpHSIgZSP5hHT0eF2m bGlnbjogbGVmdDsgdmVy vBvrEZgbBQlyE621ZNEs cDsnPlBhdGllbnQg THkwFSa1B6JkBgnpjJN+ QV14FDMnFD35eJWodAJh e6mvzTh1LzDeVVSeMQT5 eThkYMdrb0NqYJDf Q35zkZWod0F5AJWanVhz nXLgDiBrxVH9kC7nNZit zkbzj9omrfweVuifc1bu ya86kY05H16eHQoe ZHRoPSIzMCUiIHZhbGln pw9mzW9qUj1+PGNvbCB3 sIA6fD8zHHHkMtF7EMyx F673CmRgeZLwImjr e6ckw6igiQq6OhP7OTLg krBqqFwwTKQ7l8GbGs40 Z71eURgpJRPbLXRkVZHs JGCumIuhhb4jtY3z Ii8+JOUhgIO2jWX8iZ1p ZvFbJtV1DElzM901ZtWa xSTfGcksO99nM7AjvOH+ COVpCnl4QYDmdJov UN0weWFwLHltSp0jFJB0 FxWlFlFrPXukF3HxPDHt ysakbgjjpJX9NGIoLVWb mM60Ea5giZirRMIt iDCXyM9kswdos7yohnov LuHpZTUlOYe5CAs2NAQj cFtiNeKdWLY6VmG5MOA9 aKYonK6ycUpcsygn oC7mL8LxVEPakvobHv18 qC4hFbYsSzT1BAakPop+ G0hDRaYJHGwpA7uYNOBC MAoLGZ4WJYjocBR+ WQIkHNL0aGbbYVirYGPe cG7xAOZyD7k8LiJgItG6 MCkkZ3JgSLVhqykjMr51 pS2tWyNvTdW6WJoa X0MvxnA2HRWpmUVfIZuo AGI1H46yw0V0KHAhVKYv OII6bAD6oR7ukBrlgiuj bGVmdDsgdmVydGlj UBilYXldS857UESclRoj EuX4SuTdBcXmKQB5U5Cy Jpi3ZRUlnVpgTN9ujCDa UWnwUa2ruUgivLle LL0jKVJpicvrPACqxD0k GUCheTAfdYzbMD7cUIHs rhcup172HoJcEBP1WPEb tVVyK1JhwJ7xRwXi NUAeJYQhV8FavYCjZTeh Q154DMzpZtB8QJSvlmLr I8LwPHFoaFxkKrZ2x0O5 Un7qKDTRZBElcotw dGQ+CRWyHDB4hRrxHOcf BBMpqW1eQGVwU3x5CwJk VbO8GIciD4GiWPDuxdgs Or04fC7qYsJiZaX2 IHcsH1LjlrI7YPLacEFt HAgvWME3V36ad2D1CGEz VBUnSRQ9eCR0eU4imMwu bjogbGVmdDsgdmVy mDdgADeiZMczI338QPHo cDsnPkZFTUFMRTwvdGQ+ JKEiSOV7lRlmTHrvOTZv rI5uZXOdV5s9XeAa JdZ0DUtjX7NvLUBamqxh Yc01eK8pYtXtOsP9KSvn L0GaalF9MDQthKEiREhm BZH7N62ly0X1WVLu KNAySUC1bRL9pS7lbJgw bjogbGVmdDsgdmVydGlj SLfwGTsaX272EJQgmWuw Tg4YZW45AZ93Q8Xk PjwvdGFibGU+PHRhYmxl IHdpZHRoPScxMDAlJyBz lWqrJM8rHw3eWFDlOZYp eUrvgEDjIsMdb2xe WSYwFFdmAD5ruItzX5Vt rVK3DISxn3m7Vy46H01n I1HtdCV+DRPyzNZ3uZC5 jW2mLqDmSgX7FOol E791DqZmlSTyVwfbd9dh i3qmjMo3UwRtXCFvipRd jAdrVUI5s1LoXt26B38m IHdpZHRoPSIyMCUi OYAdcCkaab5bvP4eKz0+ TPJukNE9mJT2mQ7zHvDd AcJ7HUydC579CwSnqWIi FwdjM10eR3BysAL+ CGTnHir0ICAqlVdtKL9c uXBzXQjwUa9mIEY0CzNm KsJgPHwnI6VyENOixzxx qwlebBM4SYHaMGQy mZ08Yh6njWzcDu5dOIMl PJS1ZCOtfSGyZ8ZhkW7q GkVvKPPiEBRaU5GdnXYr TDqqE491TOdbRwX9 USBdlwZjV6SwSOVtdQwy PrA3m9J0Kk0CoAlmgRQb FW2fDsDyWRc9E7OeYuo7 EGXhfKacKP0pdLGm YDwvTv2tiPgkxJjyNJ4m RQIxjhdzr559GfPuv1zm RXKoqXPuMRemHCO1M15c y8W3GXYxQENkNXF3 nGP4dG0otWehjcgxgWFl dDsgdmVydGljYWwtYWxp L234EDRrvSylMdZDDsi3 P9YqGhk4BPMobNbb BT7iqYKhBCikSf1inAeg vKhhTD9iXAWiqvlqu701 OuScm1qjEXGrlSNbERca SHJ1K64cw8W7SSIg VCOdISS9kJV8jR3psQjx bjogbGVmdDsgdmVydGlj GChtHAnjW531QQFlqTqr Jq1IIbd1G6NmKjs2 HYMfaGjeQQ5mdBRgLRhp Zr8mcPjoxAsgCJ1gPYBb adbgm296LdOtx4nyGEMh iTVyWJboFUR8G04w r7A3POUfPRVoLCZ3rKH8 cN2qwTmrzlktoSSxvIpf yqZccBreAZkfJFzbT273 IHRvcDsnPlBheWVy OjwvdGQ+MO55gg82P3Rr SujoUbq6RTDyKKT5bFG4 sU4xWZCiDWiut6X2oUG7 T8JyimJlon4hv1fu YXB (more content not included)... Normal [facility] ED Clinical Summaryon 2022 ED Clinical Summary [facility] ? Urgent Care [address] [place], [place] [address] Clinical Summary PERSON INFORMATION Name: LIA DESAI Age: 22 Years Sex: FEMALE : 2000 MRN: Acct#: Visit Reason: UC - Wrist/Hand/Finger Pain or Swelling; LT HAND INJURY Arrival: 02/14/2023 17:07:31 Discharge: 02/14/2023 18:05:00 LOS: 000 00:58 Check In: 02/14/2023 17:07:31 Checkout: 02/14/2023 18:05:00 Address: [address] [place] [address] PCP: PROVIDER INFORMATION Provider Role Assigned Unassigned DORA JASSO ED PA 02/14/2023 17:09:37 Florina Griggs RN ED Nurse 02/14/2023 17:22:07 VITALS INFORMATION Vital Sign Triage Latest Temperature Tympanic Temperature Temporal Artery Pulse Rate O2 Sat 99 % 99 % Respiratory Rate Blood Pressure /82 mmHg /82 mmHg MEDICAL INFORMATION Medications Given: Allergy Information: Adhesive Bandage; Zithromax PHYSICIAN DOCUMENTATION DISCHARGE INFORMATION: Discharge Disposition: Home Discharge Location: Home PATIENT EDUCATION INFORMATION Instructions: Hand Contusion; How to Use Cold Therapy Follow-Up: With: Address: When: Regla Hernandez [phone] EXT: [phone] Call for family Physician Within 3 to 5 days Comments: Call for help finding primary care provider. Follow-up for reevaluation. Continue with rest ice and elevation using ice 10 minutes out of every hour as needed. Return for any worsening issues or any other problems. With: Address: When: [facility] Comments: [phone] DIAGNOSIS: Contusion of left hand; Left hand pain Patient Understands: Yes - Patient/family/careg iver verbalizes understanding of instructions given Comment: Normal [facility] ED Patient Summaryon 023 ED Patient Summary [facility] ? Urgent Care [address] [place] [address] PATIENT DISCHARGE INSTRUCTIONS Patient Information Name: LIA DESAI Age: 22 Years Date of : 2000 Reason For Visit: UC - Wrist/Hand/Finger Pain or Swelling; LT HAND INJURY Arrival Time: 02/14/2023 17:07:31 Primary Care Physician: Attending Physician: DORA JASSO Comment: Patient Education With: Address: When: Regla Hernandez [phone] EXT: [phone] Call for family Physician Within 3 to 5 days Comments: Call for help finding primary care provider. Follow-up for reevaluation. Continue with rest ice and elevation using ice 10 minutes out of every hour as needed. Return for any worsening issues or any other problems. With: Address: When: [facility] Comments: [phone] Hand Contusion A hand contusion is a deep bruise to the hand. Contusions are the result of a blunt injury to tissues and muscle fibers under the skin. The injury causes bleeding under the skin. The skin overlying the contusion may turn blue, purple, or yellow. Minor injuries may cause a painless contusion, but more severe injuries may cause contusions that stay painful and swollen for a few weeks. What are the causes? This condition is usually caused by a hard hit or direct force to your hand, such as having a heavy object fall on your hand. What are the signs or symptoms? Symptoms of this condition include: ? A swollen hand. ? Pain and tenderness in your hand. ? Discoloration of your hand. The area may have redness and then turn blue, purple, or yellow. How is this diagnosed? This condition is diagnosed based on: ? A physical exam. ? Your medical history. ? Imaging studies, such as: ? An X-ray. This may be needed to check for other injuries, such as broken bones (fractures). ? A CT scan or an MRI. This may be done if your health care provider thinks you have torn or injured ligaments. How is this treated? This condition may be treated with: ? Rest, ice, pressure (compression), and raising (elevating) the injured area. This is often called RICE therapy. ? An elastic wrap to support your hand. ? Vrfj-qax-tmhdqkb medicines to control pain. Follow these instructions at home: RICE therapy ? Rest the injured area. ? If directed, put ice on the injured area. ? Put ice in a plastic bag. ? Place a towel between your skin and the bag. ? Leave the ice on for 20 minutes, 2?3 times a day. ? If directed, apply light compression to the injured area using an elastic wrap. ? Make sure the wrap is not too tight. ? If your fingers become numb or turn cold or blue, take the wrap off and reapply it more loosely. ? Remove and reapply the wrap as told by your health care provider. ? Raise (elevate) the injured area above the level of your heart while you are sitting or lying down. General instructions ? Take kexn-gwb-cyczcxv and prescription medicines only as told by your health care provider. ? Protect your hand from getting injured further. ? Keep all follow-up visits as told by your health care provider. This is important. Contact a health care provider if: ? Your symptoms do not improve after several days of treatment. ? You have increased redness, swelling, or pain in your hand or fingers. ? You have difficulty moving the injured area. ? Your swelling or pain is not relieved with medicines. Get help right away if: ? You have severe pain. ? Your hand or fingers become numb. ? Your hand or fingers turn pale, blue, or cold. ? You cannot move your hand or wrist. ? Your hand is warm to the touch. Summary ? A hand contusion is a deep bruise to the hand. ? Contusions are the result of a blunt injury to tissues and muscle fibers under the skin. ? This injury is treated with rest, ice, compression and elevation. This information is not intended to replace advice given to you by your health care provider. Make sure you discuss any questions you have with your health care provider. Document Revised: 07/13/2021 Document Reviewed: 07/13/2021 [employer] Patient Education ? 2022 [employer] How to Use Cold Therapy Cold therapy, also known as cryotherapy, is a treatment that uses cold temperatures to treat an injury or medical condition. It includes using cold packs or ice packs to reduce pain and swelling. Only use cold therapy if your health care provider approves. What are the risks? Generally, cold therapy is a safe treatment. However, it is not safe for: ? People who are not able to say they are in pain, such as small children and people who have dementia. ? People who have certain conditions, such as: ? A problem in the vessels that slows blood flow to the fingers and toes (Raynaud's syndrome). ? Feeling very cold easily (cold hypersensitivity). ? Numbness or lack of feeling in the area (more content not included)... Normal [facility] Urgent Care Note- Provideron 02-14-2023 Urgent Care Note- Provider Patient: LIA DESAI Age: 22 years Sex: FEMALE : 2000 Associated Diagnoses: Contusion of left hand; Left hand pain Author: DORA JASSO Subjective Patient is a 22-year-old female presenting to urgent care with complaint of pain in her left hand. Patient states earlier to this morning she was upset and punched a door jam. She states that she is having mild swelling ecchymosis none full finger and having increased pain with movement. Denies any other issues at this time. Last menstrual cycle was 3 weeks ago was normal for her. No chance of . Health Status Allergies: Allergic Reactions (Selected) Mild Adhesive Bandage- No reactions were documented. Unknown Zithromax- No reactions were documented. Problem list (past medical history): All Problems (Selected) Anxiety / SNOMED CT 13752080 / Confirmed Acute depression / SNOMED CT 2815623832 / Confirmed Chronic post-traumatic stress disorder (PTSD) / SNOMED CT 894069066 / Confirmed Pharyngitis / SNOMED CT 1913232644 / Confirmed Cough / SNOMED CT 34402627 / Confirmed Objective CONST: -Well-developed well-nourished. -Acute distress: No -Vitals: reviewed. SKIN: -Gross abnormalities: No NECK: -Supple (irqe-mm-fazwy): non-tender. CARD: -Rate and rhythm: Regular RESP: -Respiratory effort and chest excursion with respirations: Normal -Breath sounds equal bilaterally: Clear -Wheezes: No -Rales: No EXT: Gross appearance and use of all four extremities: Unremarkable -Very small amount of ecchymosis and swelling over the metacarpal phalangeal joint of the middle finger on the left hand, tenderness to palpation. -Capillary refill less than 2 seconds all fingers on the left hand, sensation light touch is intact all fingers on left hand. NEURO: -Patient: alert -Oriented to: person, place and time. -Appearance and judgment: appropriate. Impression and Plan Assessment and Plan: Diagnosis: Contusion of left hand (YVT08-PC S60.222A), Left hand pain (AFU98-VT M79.642). Orders Orders Patient Care: Brace/Splint ED (Order): 02/14/2023 17:56 EST, Dav wrap. . X-ray of the left hand shows no acute fracture dislocation as interpreted by me in the urgent care. Indicated to the patient that we place her in an Dav wrap and she should continue with rest ice and elevation using ice 10 minutes out of every hour as needed along with Tylenol and ibuprofen for aches and pains. Told to follow-up primary care provider return for any worsening issues or any other problems. Patient indicated she understood was in agreement. Patient stable with discharged [Electronically Signed on: 02/14/2023 18:01 EST] DORA JASSO [Verified on: 02/14/2023 18:01 EST] DORA JASSO [facility] [address] 023 Urgent Care Record [facility] ? Urgent Care [address] [place] [address] PATIENT DISCHARGE INSTRUCTIONS Patient Information Name: LIA DESAI Age: 22 Years Date of : 2000 Reason For Visit: UC - Wrist/Hand/Finger Pain or Swelling; LT HAND INJURY Arrival Time: 02/14/2023 17:07:31 Primary Care Physician: Attending Physician: DORA JASSO Comment: Visit Diagnosis: Diagnoses This Visit Contusion of left hand (S60.222A) Left hand pain (M79.642) UC - Wrist/Hand/Finger Pain or Swelling ([id number]) If you received any narcotics, sedation, or any other medication that causes drowsiness for the next 24 hours, unless otherwise directed: ? Do not drive a car. ? Do not operate machinery such as power tools, lawn mowers, drills, sewing machines, or stoves ? Avoid alcoholic beverages and drugs for allergies, nerves, or sleep ? Do not make important personal or business decisions or sign any legal documents With: Address: When: Regla Hernandez [phone] EXT: [phone] Call for family Physician Within 3 to 5 days Comments: Call for help finding primary care provider. Follow-up for reevaluation. Continue with rest ice and elevation using ice 10 minutes out of every hour as needed. Return for any worsening issues or any other problems. With: Address: When: [facility] Comments: [phone] Medication Information: The exam and treatment you received today in the [facility] were for an urgent problem and are not intended as complete care. It is important for you to follow up with a doctor, nurse practitioner, or physician?s general office assistant for ongoing care. If your symptoms become worse or you do not improve as expected and you are unable to reach your usual health care provider, you should return to the Emergency Department, we are available 24 hours a day. For those patients who have received Radiology results, the interpretation of your X-ray as given to you by our Urgent Care physician is only a preliminary report. The Radiologist will review your films and if there is a change in the diagnosis you will be notified by phone. Please make sure you have provided a working phone number so we can reach you if necessary. In the event that you had a lab culture while you were a patient in the Urgent Care, you will be notified by phone if there is a need to change your antibiotic. Please make sure you have provided a working phone number so we can reach you if necessary. [facility] has provided you with a complete list of medications post discharge. Please inform your chief construction inspector/provider of your visit and for further instruction on these medications. Any specific questions regarding your chronic medications and dosages should be discussed with your primary care physician(s) and/or pharmacist. Visit Information Allergies: Substance Reaction Symptoms Type Comments Zithromax Drug Adhesive Bandage Other Vital Signs: Vitals and Measurements this Visit (last charted value for your 02/14/2023 visit) Vital Signs This Visit Temperature Oral: 36.7 DegC Peripheral Pulse Rate: 83 bpm Respiratory Rate: 18 br/min Systolic Blood Pressure: 137 mmHg Diastolic Blood Pressure: 82 mmHg SpO2: 99 % Oxygen Therapy: Room air Blood Pressure Method: Automatic Measurements This Visit Height/Length Measured: 170.18 cm Weight Measured: 111.59 kg Body Mass Index: 38.53 kg/m2 BSA Measured: 2.3 m2 Problems List: Problem Onset Comments Acute depression Anxiety Chronic post-traumatic stress disorder (PTSD) Patient Education Hand Contusion A hand contusion is a deep bruise to the hand. Contusions are the result of a blunt injury to tissues and muscle fibers under the skin. The injury causes bleeding under the skin. The skin overlying the contusion may turn blue, purple, or yellow. Minor injuries may cause a painless contusion, but more severe injuries may cause contusions that stay painful and swollen for a few weeks. What are the causes? This condition is usually caused by a hard hit or direct force to your hand, such as having a heavy object fall on your hand. What are the signs or symptoms? Symptoms of this condition include: ? A swollen hand. ? Pain and tenderness in your hand. ? Discoloration of your hand. The area may have redness and then turn blue, purple, or yellow. How is this diagnosed? This condition is diagnosed based on: ? A physical exam. ? Your medical history. ? Imaging studies, such as: ? An X-ray. This may be needed to check for other injuries, such as broken bones (fractures). ? A CT scan or an MRI. This may be done if your health care provider thinks you have torn or injured ligaments. How is this treated? This condition may be treated with: ? Rest, ice, pressure (compression), and raising (elevating) the injured area. This is (more content not included)... [facility] XR Hand Complete Lefton 11-0 XR Hand Complete Left CLINICAL HISTORY: Left hand pain. Punched wall. TECHNIQUE: 3 views left hand. COMPARISON: 12/15/2019 RESULT: No evidence for acute fracture. No dislocation. Joint spaces appear maintained. Soft tissues unremarkable. IMPRESSION: No acute findings. Final Signed (Electronic Signature): Gavin Mahoney MD 02/14/23 5:54 pm Technologist: KELVIN PATEL [facility] Coding Summaryon 11-27-2022 Coding Summary HTMLBase 64 BspxnbpoAUp5tKd+PGhl YWQ+MB3WUWOxT69hvBDj rD0gC0XUKWuZJoitBCCU ODgGLlNmfhVzIK2nlXZl ZXJu IC8+JT2bVGKvPxkjwWZi y3S0mPY4Y26mvh6yIRwx gPX6NHPqEiFqpyvqt8ub uAz6FYxtQtfdPrMu CRLlxQ81CKY0iZ28Bb47 iJCzdCDfp1grmNh0KmTh LNIgKHX6dWmyPKnwi3Vs MRGrO03vhFSpl9K2 IGNvbGxhcHNlOyBlbXB0 qX6cMHipjyviq0ykdeus Sxq4vn15uSQeq2N1fJG6 Z5AhpvO1TATnbVUr TuxkkCVNhD9uquotz5hd ofnkIwSbXBRhLUl9DHt9 PHFvlMbcKjDwXB20UPX6 RZVxucTbH3NpIQNv cQvaDmI6j5Y3Jg7SE5OA JhpsJ3YQBXYKLAfspTF+ EC84rr36A3ClOvqaYfi1 YXMyNGH7uUH0oP7m JQOyWDjbe3Y9oZT1U8Sh mzDsbb0oz3knACIxXAdh W19btIIzf6S3VXOguBR2 SBRacCfgHvMibB68 Oyc+ADHbuEpyv2IeQyvy n7ipj4moxYy6VwvmMJPo trCanUrlTUR4z2TlUo4c EFFafWO5xRK0xL7i HnYjNgE4WBxmK477WrJj mSDfRzkoK22nW7XhxEE+ IQUeOwa8SQFqfIdyAD9b C2MeCENkattziKCr hIvvXO1zROSfjzgrXCHx gX3xZIWbM1i5CrImQmS8 YNivN3ZeUNTxupivAa01 aJ0fNnMhFjJ6WUho J5CcxhY5XAMrnNAfAKsb WXL8H95zt5A7EZEkGPNv FHP5tNA9kO3viPovuyug bGVmdDsgdmVydGlj QZpvKBvdF248NRDitGky PkNvZGluZyBEYXRlOiAg MDgvMjEvMjAyMzwvdGQ+ YGUrFJU1mRpmEKYp xASmMZgsLp6zaRhckDrp LQ3cUUGytkutQFMlnQ6k LIUziMFroGcbET2yXVKh mhvqp941BjNfDTK1 DFDwtYWsO6HarH1vIgFj PLDaCTLpA6XbzFEnTYil Y189BWflKsM6EFLmddRk B6ZfZCXxyXpaAqE8 m5X4Fd7Pb3SezqltM4Pk yLTlQtJsYjzwFJu1Q6Yb PjwvdHI+RD83ONAnKN46 KUw6KNL0zBweMCnf CASrQ4TstL2qOqNsQIYf ZGRkOyc+PHRhYmxlIHdp ZHRoPScxMDAlJyBzdHls GV2pAa4tNYTyWZZq bOozmNRfMtIzi5jpUVMh DLhgDB3crWjyH5YkoBR0 CBIod3c1Et67S09rC9El dXA+GEHetIV6gCI8 bF6rXsPeQjD3JAndQ973 TzVonBKfXmuqc5jij3qw uZo4XyG0VKRgyvOisNws PIO6t6BwUf09Z82k IHdpZHRoPSIxNSUiIHZh rOztzi0erX5lWz0+PGNv lFA8oRV3qI1pXeXgMrK6 IWnxP937JhFgfBHs Eisue4piz9cnaNe2DzFu XRTbxlMjnLqyOKU5g4Ev Pm52B7ZukKksu9ZrJmn8 vl44iSKdi4Q8uCW1 U6IpDLYzbtnbpTWcuVmd UT2oXQNsixqxCNFmxA0n BRAfW8z7WcSbLaX8SYha E2JqajX3ULVkmSNz NIVlhGVZcR4uyzlru1af uqdqHnMoMFNgWGe6HWw7 XHXnyQugTyCuQJV7IsD0 PAF2rLSlkT7csRzs mxnlqC9mWdc+ZHF7oTCz eWGOBS6yFogouRF+PHRk YSH5eJxjRXmqVZYkkC7n GCNjO0r8IrNrMzA5 YWfcG4ClolW1RPIleAGz DACklTVDqK5pmdhet3nq olebZyTeMLCrWFy0JPq6 LWFsaWduOiBsZWZ0 ClH0DBB0iHUltZ0fpHlh uecuqN4mTsa+QmlydGgg ESJ6TPz2Q8TvQdr0HBPc hSylVB6shZVrNSuh Xh7eeAmqrQdtRU6fZUDz wagyy127CnAqj5hrIBCh cRHdQFquXVH4O76ap9L8 JOTuFZIyTAM5tVQ0 bH4igLrmcjzjpUJnfHlb ziNanUdqTYhzTLaxF160 INWbtEqmSoGxWDh3I2Dd Dfd3XMQfiItvPZ5m zRKgBMzzFj4koExtxByd JU4pFZZfwwwsp362FoNt q0ocZHFopOUjJYgvXLS2 U27vz7T4FDIwKKZl NTX4cJI3oM7mtVijsbtr bGVmdDsgdmVydGljYWwt ZRvcN110JMXqhChnAkVh iFf8L6TpXpp2ONDq dQeeFD4beTCbESipJh7k dKovjYoaRU8qQUJxnasq p702TrCzs9fyYACjfANd IJfjZBA2F58lh6R8 DFCkPBSdHMR1fLH6cF6q bGlnbjogbGVmdDsgdmVy rRavNMzfCIopM669DVFo cDsnPlBhdGllbnQg VZkcLBt2H2OuZbzzbSQ+ VM66RJDpBT35bDAbgVIm j0ogcQi0XlMyNSGtRYO3 rFnsXPuaj9RaHTWm T74fuALbu8A2GKCjkTdf xOVfHoQsoQX1kN5gVVgb dympx3vrtnmrUvmmp0zw lc85pV49Z26nVLkw ZHRoPSIzMCUiIHZhbGln cu9shJ5wLk1+PGNvbCB3 lSA0aD4sCOSmCnH6KRsh R529JkOzwZPeYmts g5aan4pweMf1PwJ7ADAz oaWhrPuxJUU4u4GhHx28 A69aZIziTVSfDSRpWOGk YCBxgGodsm0qfC9w Ii8+PJXhsJO4oQL2cN2k UvAnGrV5MLyzQ633EtFo iHLtHuqoT65eK4SgiQL+ ZHBpMvs6NTLyhUup QL8ldFRyLXkdCo1oHLY1 FqNzHeJdKIldX5SvJGWh yaidypatgZF4DTJeVJFk cW84Gj9yyXwwPKRe hFGBoW8nyragj4drgoyj NhJjFJTpGTw1LDm4FGYt hHghVpTbBKQ7DsE7GCD7 mXBvwF3fgHogyugf aW0bY2ApANBvosdgZl56 tM2vRqWsUdG8FJvyOhd+ M3nTRoPCMYuhM1vKYCGZ LDzMHG6OSTkwdZU+ CVZiWYT6nRvgKCreUJLs tM1dJJVpX1u1YlWqLdH5 GYfeK1HgKYIgzpkrAp18 hU3xOyDcYuI0QIby M9PchaP4JAUeyIMdAGfi IZU8V10qb5F8LWVqTJDk WDR0yJW2cQ9vtPwhxbiy bGVmdDsgdmVydGlj JJbhCFeoH748HZItnQft VtJ7WlDbBhVjSOA1V3Om Zgl8DNSseOrfXO4xaLQr YVabHr5lhIltgDbt TE1eGUHxngygSMOwpE9b OHMaaWHlxXeqWY5dYEUx acwrp594DkIpRCS1XSPl jARjG4KalD2uUtVh XHXsVJPhC7TyrOCeFLee U067OTcrNeC4IYGnlzGz N6GvQALaeLcgRoW2g9O5 Ww1cZWZKNREymcmc dGQ+KURqVHW0tJesYCak RXYtcU1rZHFtG1c0XtFr JsQ5DYjoL1CtXUAjvpzv Pg23oV0mBnYuAtI6 LBrcM1EkvaA3MINbwBQb QOqhWYD0N57le3F1ILLq DQGxRZF6fKS5tR0ouSzx bjogbGVmdDsgdmVy yOnrAXfkBOweO544MPDl cDsnPkZFTUFMRTwvdGQ+ UVFqIMC7uYgcGIxbCKCr yE4rBSYvB6d9EvOk VeD6LJisM1ZyRYEcccby Id96iD1nBpSoJkN8JJto J1ChweT1IPZszEWhSWlb XTQ2E46sh1D4QJOv HSSjHRE1zAD7uL5gqOsj bjogbGVmdDsgdmVydGlj BSzeJSoaY938TZCjeClu UrWtIZNyRZ0hzQqb dGQ+FI87ci04P0XkFdyx Vyv9MYBdJVU6oWM9yP4r DJEyMXncs9R4jCK5E8Aq dkKxso4xk4kfPEFi EDgnG58wvSJuv0G4TZYr lKQ8HQHadIekTyXzqL64 Oyc+DYEviQyyi2NtQswr n0giw5nsoVj7CvFx JCDwgrFztHmjXSW2d6Zs Bw07D13rKTmsWUTmANWo MKHjOVKwrXpkvd3prD9z Ii8+WSNurBK2aVC6 wT3vGfIiKzO4RFoqQ324 KcTuzSEhWzdyg3duf7do gWw2NaGdGCBsnhWjuLrz MYO7u2YqKa90J6Uz vUugj1ReLqw9xx34aJGs j1I7qLI8O5ZdIGLjlhls tRSenRkvBS4yCLXiifzt SMSylP1iFXKdC3m8 DvCpJpT2TFyxS5QxhwI3 RDZdlCNuEWShoHJQcJ5g nvkbp8xxqgqmHeGaPXZl GWd2AMl8RHTowSnq AwThPKX7PxX9YTZ0kZCg tM1vmKhfxjomkC1wWyv+ AFs3i4sedRLxPD1abMI6 SB23AF16zWMtf7N9 rQU8W6JtISDlfqtzxxzp dQY3MOKmWSAsrV54Uu7l dDoqBg9lYPIqTAJ2PIXw wRPlG6IzgV4uCfUs HOJqTLZoZ2DytEUiXLdx D300UYobQtZ8JKNmxhLj D1CzZSFcjZtvXwY3z6J8 Gc4ICG84JQ08AY50 eHYbx1G4gXU0D0AmYHTp iqkcvahbwXH1IFDaICLj dR35Ls3jtGfhZr1vBLOp RXG6DKWanNHhD0Hu rS0vStOoJGLjRVXyE3Gq hLLvYCiuC055XWujBdB6 POAuzoKmJ5CdEMVsrHaw PoB5w8L8Gw8UQe00 SC37RP16mOFhj0Y9cZS4 D3XvKVZiraktuugsfZC6 ZVPwHQVsaB59Cg1olPkq An4zAXOdHYF9EFDd bHBlY6KiqI8oGyNiCAPh QUEcL7FjzBIzJBcjR886 ECuzTyZ6WDYxllDnG5Fo BLAndJuwLzO5h3K6 Ck7TKVvesmw5I8WvJwef dHI+JT48RILdEU43cONd xZXpv0fouQo5NtYjZMYy EHJ3xPliBUrbj6Cx ZXI (more content not included)... Normal [facility] ED Clinical Summaryon 2022 ED Clinical Summary [facility] - Emergency Department [address] [place], [place] [address] ED Clinical Summary PERSON INFORMATION Name: LIA DESAI Age: 22 Years Sex: FEMALE : 2000 MRN: Acct#: Visit Reason: Hip pain; LEFT HIP PAIN Arrival: 11/15/2022 16:28:10 Discharge: 11/15/2022 17:02:00 LOS: 000 00:34 Check In: 11/15/2022 16:28:10 Checkout:11/15/2022 17:02:00 Address: [address] [address] PCP: Provider, None PROVIDER INFORMATION Provider Role Assigned Unassigned Anusha Palomo CNP ED PA 11/15/2022 16:30:26 Zara July CLASSROOM COORDINATOR Nurse 11/15/2022 16:32:34 VITALS INFORMATION Vital Sign Triage Latest Temperature Tympanic Temperature Temporal Artery Pulse Rate 76 bpm 76 bpm O2 Sat 100 % 100 % Respiratory Rate 18 br/min 18 br/min Blood Pressure /68 mmHg /68 mmHg MEDICAL INFORMATION Medications Given: Allergy Information: Adhesive Bandage; Zithromax PHYSICIAN DOCUMENTATION DISCHARGE INFORMATION: Discharge Disposition: Home Discharge Location: Home PATIENT EDUCATION INFORMATION Instructions: [facility]; Sciatica Follow-Up: With: Address: When: Follow up with primary care provider Within 3 to 5 days Comments: Keep appointment as scheduled. Apply ice several times a day as tolerated. Take steroids until complete. DIAGNOSIS: 1:Sciatica of left side Patient Understands: Yes - Patient/family/careg iver verbalizes understanding of instructions given Comment: Normal [facility] ED Patient Summaryon 023 ED Patient Summary [facility] - Emergency Department [address] [id number] PATIENT DISCHARGE INSTRUCTIONS Patient Information Name: LIA DESAI Age: 22 Years Date of : 2000 Reason For Visit: Hip pain; LEFT HIP PAIN Arrival Time: 11/15/2022 16:28:10 Primary Care Physician: Provider, None Attending Physician: Bennie Sharp DO Comment: Visit Diagnosis: Diagnoses This Visit Hip pain (86472423) Sciatica of left side (M54.32) The Pharmacy at [facility] is open Saturday through Saturday from 9A to 6P and Saturday and Saturday from 9A to 5P Prescription Information: If you have been given a prescription for narcotics, seek immediate medical attention if you have any difficulty breathing or any sudden status changes such as confusion and sleepiness. If you or anyone you know is experiencing suicidal thoughts, mental health, alcohol and/or drug addiction problems; contact the Mental [facility] Recovery [facility] 29/10 Crisis Hotline -Text 7XHVR mr 055491. If you received any narcotics, sedation, or any other medication that causes drowsiness for the next 24 hours, unless otherwise directed: ? Do not drive a car. ? Do not operate machinery such as power tools, lawn mowers, drills, sewing machines, or stoves ? Avoid alcoholic beverages and drugs for allergies, nerves, or sleep ? Do not make important personal or business decisions or sign any legal documents With: Address: When: Follow up with primary care provider Within 3 to 5 days Comments: Keep appointment as scheduled. Apply ice several times a day as tolerated. Take steroids until complete. Medication Information: The exam and treatment you received today in the [facility] Emergency Department were for an urgent problem and are not intended as complete care. It is important for you to follow up with a doctor, nurse practitioner, or physician?s general office assistant for ongoing care. If your symptoms become worse or you do not improve as expected and you are unable to reach your usual health care provider, you should return to the Emergency Department, we are available 24 hours a day. For those patients who have received Radiology results, the interpretation of your X-ray as given to you by our Emergency Department physician is only a preliminary report. The Radiologist will review your films and if there is a change in the diagnosis you will be notified by phone. Please make sure you have provided a working phone number so we can reach you if necessary. In the event that you had a lab culture while you were a patient in the Emergency Department, you will be notified by phone if there is a need to change your antibiotic. Please make sure you have provided a working phone number so we can reach you if necessary. [facility] Emergency Department has provided you with a complete list of medications post discharge. Please inform your chief construction inspector/provider of your visit and for further instruction on these medications. Any specific questions regarding your chronic medications and dosages should be discussed with your primary care physician(s) and/or pharmacist. Medications That Were Updated - Follow Below Instructions [facility] [address], [address], [place] [id number], [phone] Updated: predniSONE (predniSONE 20 mg oral tablet) 3 tab(s) PO Daily x 3 days, 2 tablets daily x 3 days then 1 tablet daily x 3 days. Refills: 0. Medications to Continue That Have Not Changed Other Medications cyclobenzaprine (cyclobenzaprine 10 mg oral tablet) TAKE 1 TABLET BY MOUTH TWICE DAILY NEEDED FOR MUSCLE SPASM FOR UP TO 30 DAYS. multivitamin, (WesTab Plus oral tablet) TAKE 1 TABLET BY MOUTH ONCE DAILY. naproxen (naproxen 375 mg oral tablet) TAKE 1 TABLET BY MOUTH IN THE MORNING AND IN THE EVENING FOR 7 DAYS. TAKE WITH MEALS. Visit Information Allergies: Substance Reaction Symptoms Type Comments Zithromax Drug Adhesive Bandage Other Vital Signs: Vitals and Measurements this Visit (last charted value for your 11/15/2022 visit) Vital Signs This Visit Temperature Temporal: 36.4 DegC Peripheral Pulse Rate: 76 bpm Respiratory Rate: 18 br/min Systolic Blood Pressure: 125 mmHg Diastolic Blood Pressure: 68 mmHg SpO2: 100 % Oxygen Therapy: Room air Measurements This Visit Height/Length Dosin.180 cm Height/Length Estimated: 170.180 cm Weight Dosin.680 kg Weight Estimated: 110.680 kg Problems List: Problem Onset Comments Acute depression Anxiety Chronic post-traumatic stress disorder (PTSD) Cough Pharyngitis Patient Education [facility] Ask your health care provider which exercises are safe for you. Do exercises exactly as told by your health care provider and adjust them as directed. It is normal to feel mild stretching, pulling, tightness, or discomfort as you do these exercises. Stop right away (more content not included)... Normal [facility] Progress Note - Nurseon - Progress Note - Nurse Patient walks to room 6. Patient is alert and oriented. Patient is here for left hip pain. Patient states Saturday she was in the shower and bent over and pain started to come about. Patient stated she had difficulty getting out of the shower. Patient has bilateral low back pain. Patient was seen at [facility] on Saturday and was diagnosed with sciatica. Patient is to see her PCP next Saturday. Patient was prescribed Flexeril and Naproxen. [Electronically Signed on: 11/15/2022 16:49 EDT] Vinayaka, July RN [Verified on: 11/15/2022 16:49 EDT] Vinayaka, July [facility] Coding Summaryon 08-28-2022 Coding Summary HTMLBase 64 UuiqnnjrTEh3aXl+PGhl YWQ+FV9AECAwU77glDDv hR5aD5PUOMjPPuyjRDSD YQvCCgKhqzRkNN4bxOFo ZXJu IC8+GE2nJZLmPswpjFPo d4B9yAB7S72bxn3iBHqt mSS1YEFxLfNjjzybs6zv aJt7VZueCwcmYhEp MMSgkJ31PQR2sK81Mk29 zOOuaCCyo1gamCs9EpRn RBDvNXF3uAujOGkdx4Vq KRGlR68wwJRkt3T0 IGNvbGxhcHNlOyBlbXB0 lO7fCXpkugleq9ctjxps Qoa6bk83pLAgb6X5cXA1 Q9ApcjW5TRDraCSf FrspiPQOrB2sfhwkr5tn nffmQgZfQPSxZHn8ZTh8 ZRXarJmfTaItFV95VLL2 FOBtunVmL5DbTSRz xHyeSjW0r2H3Jm8UO3GV KjrfZ3FUXBEGENvbhCD+ GD66ia30D2VeXsnqFmy4 OJAnHKS9zOQ2cX0h XLFsYPqsl6T0jQK5J4Hd hvVpzb1kl7jnADJtRHim V09btNLtw3G9HQUqcUE8 GCKfgEtqDfCtkZ44 Oyc+JCFggOgbu4AfKert m0eja0rjlWd3TbihTCBb ivSulEzhMJE7r1EwMs0k CFVkjRE8eEL0fQ6q WkOeIzA2EClgE151BgQh fUJhRskiT99tO1ZlyDT+ EMLdMqw7LUPpsElvMP2n S5DmJBLbfefylDWg mXyxOF5tZGAzubzkTHCz fB1bPRHbK6r5BxRsBfB9 JNbiK1WdWRMgkjgkTu25 tX0zVeFeSoV0XJbe Z2RoviF4RAXifNVfMDyt FJG6H96mi4G0ZNMuBQPu YDI8zCG2pR1zeOjvhbyc bGVmdDsgdmVydGlj VAtwAPetQ351ELTgiDzk PkNvZGluZyBEYXRlOiAg MDUvMjMvMjAyMzwvdGQ+ WZYzEWL0bWorEYOm kOEbTIhqPp8zeZtpqGys NI8iZYCvbtleZXKjvM6r OLUvnDGzoHrxJY0uUHXm krtka778MfVeGKD8 XEYrqUHkT1XrlO0fZvPq XJAfTDUkA3KcgXEfUTym K407SPvsGmA4ZJUmfrJi P6HdSDOpcHjfYtP8 u8Y2Rh3Zd5YkgppvJ5Lj sTIrNeCwGzhoQIb5W6Xf PjwvdHI+OE35DNQiZF58 GLc6KPE4zQtwEVgy EFGfC4RotE4pTcNaXIZj ZGRkOyc+PHRhYmxlIHdp ZHRoPScxMDAlJyBzdHls IC6uJn8jOBOnPJVc sLftpTVbHyBcv4uzDWUi UIzbPO3tsSntD2TlrIM0 CTUgo2y1Wz75M73oF1Ds dXA+LLRnjLQ5bHW5 xS3uWvWsPjF9VAedE287 YqBrfMJvOettz5nol8rx uRr5MmX7IVSbtdRgrNjl LHX6h9HzKa48P96p IHdpZHRoPSIxNSUiIHZh gKrbjs1ddE9hTx8+PGNv jIZ5nIV9aC1iXqJxUvB7 HUelN643VpJfeBRx Ngzac6imq6stzBt7TjLg KOPhdsNccHeiFVT7d5Le Tk07L5KdsIjsa9GlPab6 vy56fEFee3E9xXH6 A1QgGFYjycinnCClmHwp AF5iOFBdxdpdABCbnO9q HKGgD4b3XtGqJjL8SQvp J8TdygJ5RZQbrTMq HEKinKJEeD3ouwbbt5pr mgjwHfYsZCFxVTa5XUt1 GCLieVptJtNbAZZ3PfO0 ORS3mMBybC6idRyj gvrfaW7cXbp+LST7fARs nUMQWY1nKtxlsDS+PHRk YQC7cHnpOVzcUIWvnV2v OIDsB4b6GoZcQiP0 IGhgT8IvkiX8OLTdlNFl FITssOOOrV8jtzqcm5nz mvoeWePpZBYsBNq6AWp8 LWFsaWduOiBsZWZ0 GeH2DZZ5uCYezU6mlUdz nibsfO8aCvz+QmlydGgg OLP5KZp0J2GxPwd0PUVg qAxiCG4rfLJlFPmu Rs8daZowiBsgGD1nXSQc vqbgv951DtJzf6bpZFAa tKReJYjhAZY8A27ja8J7 HRPyCPIzVHL0sIU4 aS8mvOfdkrfrfXApvGhc btOrvAjnAPueMMbkS677 VHRltLqvSbGrMPo1M6Vf Bpd8OMRvkDivVP1j lAThYWykFg6spXeqnInv KW3gOXTdgsbzp589XiYi e8pnQJMjxXChFTwdMMJ5 T22hq2P5VRXcSFQg ELF2wRK1cI3ziWbpzzlp bGVmdDsgdmVydGljYWwt BSngV503SCAfrMkeMaMu qIi7L7MtHsf2IQZi aJqrSP6pkHLqYCbbHr3x mYhouEleUF7kIFTnvbsh m937DaLci7rsNPSbiSGo PRatDDH6I17al5P5 XBSsJKAqNON0aMD9oV1j bGlnbjogbGVmdDsgdmVy hCoyXAzmNBlkA013SKMs cDsnPlBhdGllbnQg SFemYYm7D4ByYojqaEN+ NV34OCGdYW18hYEboEDa c3jfwZp7HeBqVFGoKGK8 yGmzAKzih4AcUQTw T03ezPKqi5R2WVSayXev oRJrNsJtzQI9aF9zWOsu hedpn0sqlfitLurxm5qq hu06yE28W13hWOtq ZHRoPSIzMCUiIHZhbGln oy1jeS8iTr9+PGNvbCB3 xHG8sU4ySRFyPdZ5DLpg L722FnIacSTnYtlu q4wri5lysGp3VlC8JHPx sbEutCqwAPT3f2CiMh34 G28bTIpfTUReBFBePVVq JZRwfQipea1aoK0s Ii8+YSFuiZP8aJY0rU2l YwWfQpG7AXddG491XdWv vUMbMqkzM76wO0UmbYS+ AHAuJed6BKSnmRfa IM6uxTPrUGnaOc7dIPI2 KuAjKlDcCMecQ8ReJWRu fthcimaukZN6KGJmULSk lT38Ym0uuVggMXPn rPBYpH3ryqfov8isosnp LoFxMHUzPHj3JYp7GNFx fMwoUfAiUKJ4NcV1QDM8 bGFsaA4qgYyrjobg bE6uE9FjFZLjtaesLx59 mD6mGgHqUhI1CKmvYwo+ T9jTAvEJPTomW0vXHQBT ONlBAY6HUFxqqPL+ YSCeNXY7oWodBUafZCMe iQ1pCDUrI9m9SyRcNhO6 XPmrF6JqSAGslkddFm77 hZ3zPhFdGqU3CXbe P4BgxjR7EFDcrSLtJIui PWR0O53cv2O2YHPdKAQi GTO5rBM5mR5epXquuysy bGVmdDsgdmVydGlj VUgaTUsdZ885MUKavRwa FzL5HuQrLuGuUME3N4Bm Bkf6KRQthSonHW6lzRGf PIydPc3gfAbpzNxt NU1zRSFtayklLJAjvL3q VIEklJEpwAmvHQ1bXICl emhrt314EiZqRZN7MRYv gHUoO2YkvV6sSySp FURoCUPyP9AgyNGhTZwl L623RDrmWlA0SDTnmmLg W3TqJHJskLjlWdK1k2E0 Nb9kZLHUUGIjmtab dGQ+BPYoLUE3nWmjSSuc LJXreU2uPBCnT2b8WyPd SkH7MFwsK3TxOMTmqzpk Gu26yD6sIcEtPtO6 OBbyU0CtprX5MNSsrZFd IDksKGX4V55gq2E6DDSp PMHeWYJ1xYU7uB2vrLch bjogbGVmdDsgdmVy oLphUOxoDOvmY275ZROr cDsnPkZFTUFMRTwvdGQ+ GYRkDQG5gVhvVLtaUABw oS7rBFVzI1y5DaWi GbM7IBfvM4JiNPIqgyan Wc23fU4kTnNjWbW5PQtn R4RjkkW1WBIhyYUxQBrc HUL0B89ks3P6RYQd OUXaSGU3iGJ9qP0hsKeb bjogbGVmdDsgdmVydGlj IMjkTXzyK259DTQjpAlh Kh2MYT66NW93G0We PjwvdGFibGU+PHRhYmxl IHdpZHRoPScxMDAlJyBz lJmeFY3wLx7fBWRzTXXe fVoyvKJjYpXof2yw BNWeBCtlJJ3wsXguU8Ga pYS3LCBoz4c6Cy69V49g J4ScxZY+ONNkkEJ9sCM6 lU7gSlScNbP1WTgt T279LeArgZUtEcjdg8gh q9tkbKt5YbRsRNLexoGj wYhxBIZ8d1RkMa77Z37r IHdpZHRoPSIyMCUi AFSlrPqcbm6ysI8mRm2+ DKIhmGR4eAY3yL7fUbId UnS8CSmsY951NpAzoUMp UullW99xZ4SwnOJ+ NUEtZso8ISXldLviJM4o mHObNJtwPf9vQDI7LmBd BpAzGYfnJ1DkUJNsghre ohggkKD8FWJyTMJy uW11Ls2kbDkdMl0vOVSr VPX1KYScaDZqV0VecG6o IgXiGTInCCWeN9IzoVSp POlrE596ANaaPzU6 QRFjveRbV6HiMNKviUxs TwX3p2A3Qz5MrQmhjFYr HX9yJyOyAMm3C3UuPpd8 KGLsoBtiCK2zmMWn EDluGm2bdSdtbItdXG4i ICKbeougj727ZaVix6dw NLZlhLOiMEdeSLE3S77q d7H8AOFbHFXjSVQ5 hTV8wW2tzHmcfkdcpOQc dDsgdmVydGljYWwtYWxp S732RHTxyUvsIjSQRuv7 W9IbBbd8PCCvdDxv EZ7avFGhAQhxIf7ieIld rEiuTH6pKIZrxuuji452 QcQso3aySDTbbCHlIUfc XMQ9L40cl1H9XKAu BVWxJLK6pSO2lU3vlWty bjogbGVmdDsgdmVydGlj OSnhNPkdC421YRLgzBen Ff3ACsw8Q4VsYwq1 UJRkgZvqRJ8twUPuGMva Tl8nrTkhyXkiXU2cAEOh srodn698SjTsb0oyEWKb tERsINonQVQ6C92v l1M6XQCsCLSjEJQ5tEV7 nD0iyUdvnpfeeNLvbAye ruHnfNffBMhbARbmQ853 IHRvcDsnPlBheWVy OjwvdGQ+JK20er05X0Ty XbqyBkb7UPMkWCA8hAK2 eU7kGXOmRNwgy7O0rSE3 H9EzszHfqd7ks8aw YXB (more content not included)... [facility] Physical Therapy Noteon 08-07 Physical Therapy Note [phone] [id number] [id number] [facility] hCG Quantitativeon hCG Quantitative 3.0 mIU/mL High 0.0-0.6 [facility] Comment on above: Result Comment: Post -Menopausal Reference Range is: 0.1-11.6 mIU/mL Performed By: #### [id number] ####[facility] (DEFAULT)[address] [place] [address] Coding Summaryon 08-16-2022 Coding Summary HTMLBase 64 SrlwqnhjZHi0aCx+PGhl YWQ+VW0MKHEuC62lkGBo nQ5CR5mDKY9BIJQSTDXY GG2AYN2apRD4NLleT7Mq biAv DktmtXLrHG32WRe3SEK6 rDllTNjgcV5nwXOpL9j5 QjKwUE61kM68ABcvPYJl LeQ3GjVxatbntMYi R2ljLmGdmFRjRjl+PHRh YmxlIHdpZHRoPScxMDAl EpPtuXegFV2gWg0aMTLw LWNvbGxhcHNlOiBj t3clYOGaPOpsLN0eyCnh K0UtuLV7UDPvk5c5Ce56 dHI+JCTtESR4wQvcXBfc d763CvNtl2ftWML1 wEKvKYxyBNZ1N00ev7Q0 GPSvMCTxJXK4vZB6bB7g tMucwfzfQ8MftZWyJkW7 XPJ3jWDyoO5ljNgp iakpxK8yEwm+Q86QES9B JXGAKE5VFab1H6FzEnrd dHI+JX48SNBkQD49fNQb iVMao8texZs0LaBg QJLqRMN9dHfdIWssh6Or VBGcE44qyUHjn2B0VLTg oPtpqHYdBpNwgHY6fR9u GInscaheh8xfliut Nswzk5lpbr42lA51X91z CXdcEIMqQWK6HUNrELMm fFgmem9awX9rBx9+IDxj x4glw9vwiAu0DwPf DDRcdgZobUngLZG7y0Be Aa97B3JlzRfyb7VeTlx4 nq87aNQrr0K2iQA7SJny KLHwiP9lJXmkFwY3 HMNgJxXdzO45iMUsTNdf Qu7afSrezXmkTH2eKSQy frcwZKEtiQ1dTDVupIXs fLjuNC0bVYFizhqw p204UoJrABA3XQOpsNLu L5KrzT5oHvXbSESaSLWk A7MkdKCjSJacV271MTmo CgG0MSQnuoNsP8Zu JGJbiCbcImP6x6B7Yu6O l9NzvlioAQI3CPezCIP4 AgOlAvIdQwT3E2PcWuz2 QBZxgLioNR2yY1Fi KWYwlqbhkdtaxWY6ZVNw YTFnuC38cXDkNJrsLc8o o3H8a751VPXyOSSnbV15 Oy2zrDpvOACieLLW rT7xhazwj3rlazvoJuYt PMJbJKc1OId4ZXKuhNni TdGnAZC8TtG0TNB9rERz qU6hgOaatmkbqK2b Oyc+F07jnB3jQNS3FOC6 nblfDZUnhlXnWG21AN79 A7JkVzlhiCTnrZG+PGRp lfKguMaeIK7aDbUq t6hfa0ZiKKzoH0XtEKBn PYcsYxz3AWZhCKD3fTT9 kZ5zHYRfQUxad8D4mCK3 C4VbhaUlxd8hj5ow ZWEuZKlwK19ulKOpv2I5 AAQzaUB5OBRjnLndNpWq uN10Atb+FQXvsGqkq8Wd Amsxo5liz5uziSg3 IjMwJSIgdmFsaWduPSJ0 f0UvSg86Q24eQIbgGDLc IRSxLMRiCQYnkAzczq3q gI2fWm7+PGNvbCB3 eUE6aJ6dEBJlPdK3ULke W051LzPtoZIgQyiwx5nf l0wbcSj0ZeNoWFEpeoEu qIziYCC6a5StDw06 X85lQValGMJzHMCuRUFn GBYfhMqqzr6nqV8cBi3+ YC2vk0twnv45bO06iHD+ DXPoTCP4hPgyPImz EQAxcY1iCVvsIfC9JZHe GgTdnY03tYNbIFyyHp4v uSqkiVwrIF4bXZHiakzf j866UuAbt0tbHAJq wQSyRGqkJPX8Z21mm0C8 VHUzRBMxUUF7aKI0fG5j bGlnbjogbGVmdDsgdmVy uTmbURwcJTntI882 IHRvcDsnPlBhdGllbnQg ZzLvNEz9O3ExTth3KLXu oWwrXT7jlXJgQWtzCu8p kQjhmIfqTD5mMDNf jzjzk991HeWwq9isQZGh iYUdUXfeOFP6B74nx2L7 CWNeJWPgCGW7fKJ0lC5q bGlnbjogbGVmdDsg xcMbyWyuGMngZLwfT985 IHRvcDsnPkJpcnRoIERh oJF8AZ81CU87jYWyb9G6 cIA3G6YaNVGtzvza nzpbiOG8ZRSmNIBbfB40 Jq9jlIzePj8eKFLfTZN3 PYTtbTXsZ9ZlvL9rQwNa TAKxBYLcX2DsdTNk RHpcL254KCnsEmM5UYLz llPgU9RdHVTowLgvPiY2 a5V5Hd1JJ9T2JP37GA62 uPCie2M6dLM1U4Aq PSUqzubazrlypHL4VAZr LMIkcQ26Vj8mhHwsKa3g GLNmWAC2EYCqyQYiG3Gs yM4iHdYhARKbGWQm X5HlwNOlMHlqL670XAvh IlL3PXNkqbMiT8YfQWLp nMalDwT7g4A9Wr3ZFWv0 GN55IH91zWJim0E5 fBH1Y0NzMVDckfelnbcd jSY0BDKvLMOiwM01Tp3y qCpsRz8kFZNxFHD2INHm lYHnN3DqxG2fRlBc XXAvQBCgF0StsDIcULhq P620UOykTfT9PZRbewZe K5AiCMWriFdySaW7c0P6 Hv7IHJQiYO32EGY3 oAP3KK18XL41H5MuYwen dGFibGU+PHRhYmxlIHdp ZHRoPScxMDAlJyBzdHls GN8xZe4uGRUaNFAd tQvboZVuAjChf8usVUUo HBkbWX5dzHsqY4XzbHL0 THRge9p1Ax42C97rH1Vl dXA+ASRorIP8uVJ4 pL4tAxItGrG4GXbuK281 RaCgnFIbWkdxb9wqf4dc wFp0HyZ0QCPpufGedSie LWY7t5ClXr47Y33j IHdpZHRoPSIxNSUiIHZh dQecov0ngE3xCv6+PGNv tII0uBK8uY2zXwImZpV9 ZFthD162JeLnpPUs Tikmy0osi6qjdMm6MnDh GHWzpfRryVwaLWA0n1Ws Wq22U7PubDkth2DwVqa7 uo35hZSkz5M0nWK8 E0PxROUjnbtowDZqrQfv QB2yDJPrarphNYCzaA5j IGSuZ2v3NcObEfL2PWvw D7DezdK7ESOcfZXb QSnzBSQ5I69sc0F1DEOm EWQgDUG5dQS6dD5qsEnl bjogbGVmdDsgdmVydGlj VYmyUHrkX017JVTq jOkdJMOvtQ8uOBPemBLp oUulDM7hNFJlbjicDmiH TEJFUlQsIFNIRUxCWSBM BINNZwN7I7QwUiv8 VGLemCgyFJ2vuBMoSHys Rn9ijBdiiZnnZC2uSKRn plmcCPVnhP5hWCHhnAAm iMwuVH3vYJCusxdy b980MeVuRIT0DKFezDCt S7RxgO1lCeKsCBVzWENa H3OehBLfCTzkF001JJee AqV2WIPkpaAnB7Th NUTgpZhySuI4v2Q2Rs9a Zn0vLy0aIFRsHA96IE11 zNYvp7U6zYB9X7JoHKNf kqdzvxkyaUK0YKUe HYDajM66cXAqUVvoFq9k h7S7y222WTNbJHTccD32 Ki7rgSicSEIujNBNcT1q jvevc1ddyegbWuAz XXSwGWl5BDu7SAWbuVvb IhEbEBQ6JqU4NML5mJRi zH3itEegklsvlA8cOyt+ IzZyCWHjxfU5V1Av Akd9WKQecPnqUA2veMDy WEneDw4tuOfqsTneEL8g ZTQvekffZAVmiF7iTNCm zKQjiBalQT4aZJZl milen681MmKgKWC1CSDb gRBdU5YyqF3gKtQdUDYj XANjY1GipAQePOfaN723 DSldHaF0MCJulpQk J8VjZDFtvFkeIeT6q3N1 Ls8XOB7RNCM1O3WpDoc0 JZKxfHrzEV2tgTPfLTab Bb5bhLwruQxxVH6s FTTckcwrYGIzpW0uUMBs tWCwnGmfJI9tHBCkpipl e555ZrDyGGO9OHBdzKKd L8LeqP7jJqRkDKRf EWDyQ1ZijOBoVVmuC109 HWurRuL6EVEfewOuM6Lm YOIkuUorGdE6s4Q1Oa2I tHSbV0AwV0s5I0Xb PjwvdHI+MW72KXXwWA00 uUPdmZHev7tqwZe8EfPx RNNbGLH1xLlxTUowr3Qz PUHqC75pxGMhe6Y3 IGNvbGxhcHNlOyBlbXB0 eP0lUHaknhlmf5meczbq Jjsas0qiag27bS85K05w IHdpZHRoPSIzMCUi JONayXcbkl5sgE2oTf3+ IXWwcWH4rQB8uM8dMiJc QgQ2INvqT515XiTxpOBz Nsaca1wip3qwrPf0 IjIwJSIgdmFsaWduPSJ0 o4XlIb54M98iEZwnZRCz XXGfIJHtBMRxrIeyyo6x zL8sBl9+ZH8av9ap yi66gQ29zSK+PHRkIHN0 iHepHDtqPXJjnP8kTItb PwQ8LJQkKnMwdF48vKEf IAudDu9yiQnbdUkz GU7kHDHabcivj848JmIc q1tuYIOieLXuJIwjEVB4 Z51qb8L5LWXxDGRwGHB4 iSB9pI5bhYnxcios bGVmdDsgdmVydGljYWwt HLtqY295YYGrpZrjWrIm iKGtC6deduWZCO2eZdvo dGQ+WEXlZWV1dVao YShlPQTkuM6vIZVuO1m8 DgBuVfM3VUwcJ5VopzL7 TERguGNhOLObcWWOiV3l yelyd6skkzzxJkSv KRQsMMv9GFh8APBbkKqu KyDiTUP2HqI6ZKH0gIBt aX9xpPzieupksC0fDjs+ RklOOjwvdGQ+PHRk HFT2lRgfKButLJUdjK0n KLPzV3g2OoAhYdF8HCrg M9CzwwQ5NBSrwPLxAVQn iUWZsD1asfppw9js figqBzHbRKTxDVf6JZs6 KPYddIdxKvXgVSG5MjP6 OGS0qCYysF8yaIpuvtwj oP6kXin+TVJOOjwv dGQ+QIFqGCX4xQqkTTsk EZSokL9kXLHpH8w7LcPj NeP2SAziJ5FdojD3KAWs wTGgPTRpzATNdU2m xyztm4ndsqowWyRpWXIk GNl7IPb7HHHowGjdLlNx KOL7WaS2BCY3pWEgkN5y kXvfhfkdpO2nMhp+ EOB4ACQ7YR13ON57X6Ap PjwvdGFibGU+PHRhYmxl IHdpZHRoPScxMDAlJyBz ySgiDB4nNg6jANFt LWN (more content not included)... Normal [facility] .Auto Diff 08-11-2022 Auto King % 7 % Normal 04-19 [facility] Comment on above: Performed By: #### 1 [id number], [id number], [id number], [id number], [id number] ####[facility] (DEFAULT)[address] [place] [address] Baso Abs# 0.1 x10 Normal 0.0-0.2 [facility] Comment on above: Performed By: #### 1 [id number], [id number], 2147069, 7908133, [id number] ####[facility] (DEFAULT)[address] [place] [address] 30756 Basophils/100 WBC (Bld) 0.8 % Normal 0.2-2.0 [facility] Comment on above: Performed By: #### 1 [id number], 32342137, 2568043, 4394465, [id number] ####[facility] (DEFAULT)[address] [place] [address] 61098 Eos Abs# 0.0 x10 Normal 0.0-0.4 [facility] Comment on above: Performed By: #### 1 [id number], 14229049, 4168296, 7544661, [id number] ####[facility] (DEFAULT)[address] [place] [address] 99666 Eosinophils/100 WBC (Bld) 0.4 % Low 0.9-4.0 [facility] Comment on above: Performed By: #### 1 [id number], 05972447, 0173473, 4620908, [id number] ####[facility] (DEFAULT)[address] [place] [address] 02807 Lymph Abs# 3.0 x10 High 1.3-2.9 [facility] Comment on above: Performed By: #### 1 [id number], 19023624, 2511663, 2438999, [id number] ####[facility] (DEFAULT)[address] [place] [address] 38204 Lymphocytes/100 WBC (Bld) 25 % Normal 14-48 [facility] Comment on above: Performed By: #### 1 [id number], 22349368, 8955436, 7918039, [id number] ####[facility] (DEFAULT)[address] [place] [address] 44579 King Abs# 0.9 x10 High 0.0-0.8 [facility] Comment on above: Performed By: #### 1 [id number], 04875891, 5571528, 2440173, [id number] ####[facility] (DEFAULT)[address] [place] [address] 72141 Neut Abs# 8.1 x10 Normal 1.5-9.2 [facility] Comment on above: Performed By: #### 1 [id number], 62845903, 5934940, 6911344, [id number] ####[facility] (DEFAULT)[address] [place] [address] 23220 Neutrophils/100 WBC (Bld) 66 % Normal 44-88 [facility] Comment on above: Performed By: #### 1 [id number], 91384714, 1704537, 1454610, [id number] ####[facility] (DEFAULT)[address] [place] [address] 16227 BMP Standardon 08-11-2022 eGFR Non AA >60 Invalid Interpretation Code [facility] Comment on above: Performed By: #### 1 [id number], 25429822, 3589214, 4371347, [id number] ####[facility] (DEFAULT)[address] [place] [address] 72985 eGFR AA >60 Invalid Interpretation Code [facility] Comment on above: Performed By: #### 1 [id number], 66959750, 8715882, 8728461, [id number] ####[facility] (DEFAULT)[address] [place] [address] 58630 Anion gap [Moles/Vol] 18.5 mmol/L Normal 5.0-19.0 [facility] Comment on above: Performed By: #### 1 [id number], 56378944, 9417869, 2808306, [id number] ####[facility] (DEFAULT)[address] [place] [address] 60331 Calcium [Mass/Vol] 8.7 mg/dL Low 8.9-10.3 [facility] Comment on above: Performed By: #### 1 [id number], 21589382, 9784558, 7926413, [id number] ####[facility] (DEFAULT)[address] [place] [address] Chloride [Moles/Vol] 100 mmol/L Low 101-111 [facility] Comment on above: Performed By: #### 1 [id number], 57924618, 7601066, 5186007, [id number] ####[facility] (DEFAULT)[address] [place] [address] 78388 CO2 [Moles/Vol] 24 mmol/L Normal 21-32 [facility] Comment on above: Performed By: #### 1 [id number], 24385606, 7721860, 7877674, [id number] ####[facility] (DEFAULT)[address] [place] [address] 43203 Creatinine [Mass/Vol] 0.57 mg/dL Low 0.60-1.30 [facility] Comment on above: Performed By: #### 1 [id number], 58330285, 9378587, 4700499, [id number] ####[facility] (DEFAULT)[address] [place] [address] 11875 Glucose [Mass/Vol] 98.0 mg/dL Normal 74.0-118.0 [facility] Comment on above: Performed By: #### 1 [id number], 91864053, 0181948, 2328335, [id number] ####[facility] (DEFAULT)[address] [place] [address] 23309 Osmolality 274 mOsm/L Invalid Interpretation Code [facility] Comment on above: Performed By: #### 1 [id number], 49425745, 4311940, 9349390, [id number] ####[facility] (DEFAULT)[address] [place] [address] 44037 Potassium [Moles/Vol] 4.5 mmol/L Normal 3.6-5.1 [facility] Comment on above: Performed By: #### 1 [id number], 60910086, 2039222, 8497286, [id number] ####[facility] (DEFAULT)[address] [place] [address] 03449 Sodium [Moles/Vol] 138.0 mmol/L Normal 136.0-144.0 [facility] Comment on above: Performed By: #### 1 [id number], 31746351, 5234384, 6712415, [id number] ####[facility] (DEFAULT)[address] [place] [address] Urea nitrogen [Mass/Vol] 9 mg/dL Normal 8-26 [facility] Comment on above: Performed By: #### 1 [id number], 59958674, 3969809, 1792866, [id number] ####[facility] (DEFAULT)[address] [place] [address] Urea nitrogen/Creatinine [Mass ratio] 15.7 mg/mg Normal 4.6-16.2 [facility] Comment on above: Performed By: #### 1 [id number], 20053521, 9542536, 0134088, [id number] ####[facility] (DEFAULT)[address] [place] [address] CBC w/ Auto Diffon 3 Erythrocyte distribution width (RBC) [Ratio] 14.1 % Normal 11.5-15.0 [facility] Comment on above: Performed By: #### 1 [id number], 66487157, 1850914, 4647833, [id number] ####[facility] (DEFAULT)[address] [place] [address] Hematocrit (Bld) [Volume fraction] 36.8 % Normal 33.7-40.4 [facility] Comment on above: Performed By: #### 1 [id number], 72530990, 2878342, 4559182, [id number] ####[facility] (DEFAULT)[address] [place] [address] Hemoglobin (Bld) [Mass/Vol] 12.1 g/dL Normal 11.3-15.9 [facility] Comment on above: Performed By: #### 1 [id number], 22808019, 4943199, 2343070, [id number] ####[facility] (DEFAULT)[address] [place] [address] Man Diff? Auto Invalid Interpretation Code [facility] Comment on above: Performed By: #### 1 [id number], 17406557, 1588731, 8594935, [id number] ####[facility] (DEFAULT)[address] [place] [address] 40362 MCH (RBC) [Entitic mass] 28 pg Normal 24-34 [facility] Comment on above: Performed By: #### 1 [id number], 63665255, 4922413, 2514255, [id number] ####[facility] (DEFAULT)[address] [place] [address] 46239 MCHC (RBC) [Mass/Vol] 33 g/dL Normal 26-37 [facility] Comment on above: Performed By: #### 1 [id number], 36710274, 6558082, 3182406, [id number] ####[facility] (DEFAULT)[address] [place] [address] 29255 MCV (RBC) [Entitic vol] 85 fL Normal 81-100 [facility] Comment on above: Performed By: #### 1 [id number], 05823025, 0169728, 3943271, [id number] ####[facility] (DEFAULT)[address] [place] [address] 42478 Platelet 367 x10 Normal 138-427 [facility] Comment on above: Performed By: #### 1 [id number], 93236628, 1435481, 0067995, [id number] ####[facility] (DEFAULT)[address] [place] [address] 30170 Platelet mean volume (Bld) [Entitic vol] 8.1 fL Normal 6.3-10.2 [facility] Comment on above: Performed By: #### 1 [id number], 63953340, 1019586, 7763666, [id number] ####[facility] (DEFAULT)[address] [place] [address] 80802 RBC 4.33 x10 Normal 3.70-5.30 [facility] Comment on above: Performed By: #### 1 [id number], 21160610, 4125534, 6874910, [id number] ####[facility] (DEFAULT)[address] [place] [address] WBC 12.2 x10 High 3.5-10.5 [facility] Comment on above: Performed By: #### 1 [id number], 76973811, 8344053, 0922567, [id number] ####[facility] (DEFAULT)[address] [place] [address] 41615 ED Clinical Summaryon 2022 ED Clinical Summary [facility] - Emergency Department [address] [place] [address] ED Clinical Summary PERSON INFORMATION Name: LIA DESAI Age: 21 Years Sex: FEMALE : 2000 MRN: Acct#: Visit Reason: Vaginal bleeding - < 20 wks ; 7 WEEKS, VAGINAL BLEEDING Arrival: 08/11/2022 12:41:34 Discharge: 08/11/2022 16:30:00 LOS: 000 03:49 Check In: 08/11/2022 12:41:34 Checkout:08/11/2022 16:30:00 Address: [facility] 04/[address] [place], [place] [id number] PCP: Provider, None PROVIDER INFORMATION Provider Role Assigned Unassigned Adamaris Jaeger PA-C ED PA 08/11/2022 12:44:39 Arabella Romano CLASSROOM COORDINATOR Nurse 08/11/2022 12:45:45 VITALS INFORMATION Vital Sign Triage Latest Temperature Tympanic Temperature Temporal Artery Pulse Rate 80 bpm 80 bpm O2 Sat 100 % 100 % Respiratory Rate 16 br/min 16 br/min Blood Pressure /71 mmHg /71 mmHg MEDICAL INFORMATION Medications Given: Allergy Information: Adhesive Bandage; Zithromax PHYSICIAN DOCUMENTATION Patient: LIA DESAI Age: 21 years Sex: FEMALE : 2000 Associated Diagnoses: Miscarriage Author: Adamaris Jaeger PA-C Basic Information Time seen: Date & time 08/11/2022 13:19:00. History source: Patient. Arrival mode: Private vehicle. History limitation: None. Additional information: Chief Complaint from Nursing Triage Note : Chief Complaint 08/11/2022 12:45 EDT Chief Complaint approx 7 wks . Abdominal cramping 2 hrs ago with vaginal bleeding. . History of Present Illness 21-year-old female who is 7 weeks presents for lower abdominal cramping that started 15 minutes prior to arrival and vaginal spotting that she noticed while using the restroom. She had a miscarriage 3 months ago that required a D&C. She is drinking water and eating chips. Denies fever, back pain, dysuria, n/v Review of Systems Additional review of systems information: All other systems reviewed and otherwise negative. Health Status Allergies: Allergic Reactions (Selected) Mild Adhesive Bandage- No reactions were documented. Unknown Zithromax- No reactions were documented.. Medications: (Selected) Documented Medications Documented WesTab Plus oral tablet: TAKE 1 TABLET BY MOUTH ONCE DAILY. Past Medical/ Family/ Social History Medical history: Resolved Disease caused by 2019 novel coronavirus ([id number]): Onset on 11/23/2020 at 20 years. Resolved. Comments: 11/23/2020 CDT 16:07 CDT - SYSTEM Problem added by Rule (IC_COVID19_AUTO_PRO BLEM) following 2019 Novel Coronavirus (CoVID-19), MILY L from Nasopharyngeal Swab collected on 22-NOV-2020 16:44:00 EDT tested positive for COVID-19. no history ([id number]): Resolved. Contact dermatitis (61496907): Resolved.. Surgical history: Tonsillectomy ([id number]).. Family history: No family history items have been selected or recorded.. Social history: Social & Psychosocial Habits Alcohol 02/05/2022 Alcohol Use: Current Frequency: 1-2 times per month 08/11/2022 Alcohol Use: Past Substance Abuse 06/12/2022 Substance use: Current Type: Marijuana Frequency: Several times per day Comment: States vapes marijuana about 4 hits/day - 03/07/2022 14:36 - Chloé Lombardo RN 08/11/2022 Substance use: Current Type: Marijuana Frequency: 1-2 times per week Tobacco 08/11/2022 Smoking tobacco use: Never tobacco user Electronic Cigarette/Vaping 06/12/2022 Electronic Cigarette Use: Use, within last 90 days Type: Cannabinoid infused 08/11/2022 Electronic Cigarette Use: Former use, quit more bill . Problem list: Active Problems (5) Acute depression Anxiety Chronic post-traumatic stress disorder (PTSD) Cough Pharyngitis . Physical Examination Vital Signs Vital Signs 08/11/2022 12:45 EDT Temperature Temporal 36.9 DegC Peripheral Pulse Rate 80 bpm Respiratory Rate 16 br/min Systolic Blood Pressure 134 mmHg Diastolic Blood Pressure 71 mmHg SpO2 100 % Oxygen Therapy Room air . Measurements 08/11/2022 13:11 EDT Weight Dosing 111.130 kg 08/11/2022 13:11 EDT Height/Length Dosing 167.640 cm 08/11/2022 12:45 EDT Height/Length Estimated 167.640 cm Weight Estimated 111.130 kg . General: Alert, no acute distress. Skin: Warm, dry, pink, intact. Head: Normocephalic, atraumatic. Neck: Supple. Eye: Extraocular movements are intact. Respiratory: Symmetrical chest wall expansion. Gastrointestinal: Soft, Nontender, Non distended. Back: Nontender. Neurological: Alert and oriented to person, place, time, and situation, normal speech observed. Psychiatric: Cooperative, appropriate mood & affect. Medical Decision Making Rationale: hCG quant 4,616. No other significant lab normalities. UA negative for UTI. Ultrasound is measuring 7 weeks and 1 day with no cardiac activity and likely a miscarriage. She just had a miscarriage 3 months ago and required a D&C. She is instructed to have the hCG quant draw (more content not included)... Normal [facility] ED Note - Provideron 023 ED Note - Provider Patient: LIA DESAI Age: 21 years Sex: FEMALE : 2000 Associated Diagnoses: Miscarriage Author: Adamaris Jaeger PA-C Basic Information Time seen: Date & time 08/11/2022 13:19:00. History source: Patient. Arrival mode: Private vehicle. History limitation: None. Additional information: Chief Complaint from Nursing Triage Note : Chief Complaint 08/11/2022 12:45 EDT Chief Complaint approx 7 wks . Abdominal cramping 2 hrs ago with vaginal bleeding. . History of Present Illness 21-year-old female who is 7 weeks presents for lower abdominal cramping that started 15 minutes prior to arrival and vaginal spotting that she noticed while using the restroom. She had a miscarriage 3 months ago that required a D&C. She is drinking water and eating chips. Denies fever, back pain, dysuria, n/v Review of Systems Additional review of systems information: All other systems reviewed and otherwise negative. Health Status Allergies: Allergic Reactions (Selected) Mild Adhesive Bandage- No reactions were documented. Unknown Zithromax- No reactions were documented.. Medications: (Selected) Documented Medications Documented WesTab Plus oral tablet: TAKE 1 TABLET BY MOUTH ONCE DAILY. Past Medical/ Family/ Social History Medical history: Resolved Disease caused by 2019 novel coronavirus ([id number]): Onset on 11/23/2020 at 20 years. Resolved. Comments: 11/23/2020 CDT 16:07 CDT - SYSTEM Problem added by Rule (IC_COVID19_AUTO_PRO BLEM) following 2019 Novel Coronavirus (CoVID-19), MILY L from Nasopharyngeal Swab collected on 22-NOV-2020 16:44:00 EDT tested positive for COVID-19. no history ([id number]): Resolved. Contact dermatitis ([id number]): Resolved.. Surgical history: Tonsillectomy ([id number]).. Family history: No family history items have been selected or recorded.. Social history: Social & Psychosocial Habits Alcohol 02/05/2022 Alcohol Use: Current Frequency: 1-2 times per month 08/11/2022 Alcohol Use: Past Substance Abuse 06/12/2022 Substance use: Current Type: Marijuana Frequency: Several times per day Comment: States vapes marijuana about 4 hits/day - 03/07/2022 14:36 - Munira SANTOS, Chloé 08/11/2022 Substance use: Current Type: Marijuana Frequency: 1-2 times per week Tobacco 08/11/2022 Smoking tobacco use: Never tobacco user Electronic Cigarette/Vaping 06/12/2022 Electronic Cigarette Use: Use, within last 90 days Type: Cannabinoid infused 08/11/2022 Electronic Cigarette Use: Former use, quit more bill . Problem list: Active Problems (5) Acute depression Anxiety Chronic post-traumatic stress disorder (PTSD) Cough Pharyngitis . Physical Examination Vital Signs Vital Signs 08/11/2022 12:45 EDT Temperature Temporal 36.9 DegC Peripheral Pulse Rate 80 bpm Respiratory Rate 16 br/min Systolic Blood Pressure 134 mmHg Diastolic Blood Pressure 71 mmHg SpO2 100 % Oxygen Therapy Room air . Measurements 08/11/2022 13:11 EDT Weight Dosing 111.130 kg 08/11/2022 13:11 EDT Height/Length Dosing 167.640 cm 08/11/2022 12:45 EDT Height/Length Estimated 167.640 cm Weight Estimated 111.130 kg . General: Alert, no acute distress. Skin: Warm, dry, pink, intact. Head: Normocephalic, atraumatic. Neck: Supple. Eye: Extraocular movements are intact. Respiratory: Symmetrical chest wall expansion. Gastrointestinal: Soft, Nontender, Non distended. Back: Nontender. Neurological: Alert and oriented to person, place, time, and situation, normal speech observed. Psychiatric: Cooperative, appropriate mood & affect. Medical Decision Making Rationale: hCG quant 4,616. No other significant lab normalities. UA negative for UTI. Ultrasound is measuring 7 weeks and 1 day with no cardiac activity and likely a miscarriage. She just had a miscarriage 3 months ago and required a D&C. She is instructed to have the hCG quant drawn in 48 hours and follow-up with the OB. Dr. Duval in room to evaluate patient. Afebrile, not tachycardic, tolerating PO and ambulating at baseline and hemodynamically stable at time of discharge. educated on when to return to ER. if any new or worsening sx, needs rechecked. answered all questions. pt in agreement with tx.. Results review: Lab results : Lab View 08/11/2022 13:49 EDT Sodium Level 138.0 mmol/L Potassium Level 4.5 mmol/L Chloride Level 100 mmol/L LOW CO2 24 mmol/L Anion Gap 18.5 mmol/L Glucose Level 98.0 mg/dL BUN 9 mg/dL Creatinine 0.57 mg/dL LOW BUN/Creat Ratio 15.7 eGFR AA >60 mL/min/1.73m2 NA eGFR Non AA >60 mL/min/1.73m2 NA Calcium Level 8.7 mg/dL LOW Osmolality 274 mOsm/L NA hCG Quantitative 4,616.0 mIU/mL HI WBC 12.2 x103/mcL HI RBC 4.33 x106/mcL Hgb 12.1 gm/dL Hct 36.8 % MCV 85 fL MCH 28 pg MCHC 33 gm/dL RDW 14.1 % Platelet 367 x103/mcL MPV 8.1 fL Auto Neut % 66 % Auto Lymph % 25 % Auto King % 7 % Auto Eos % 0.4 % LOW Auto Baso (more content not included)... Normal [facility] ED Note-Nursingon 08-11-2022 ED Note-Nursing Patient walked into the ED with c/o abdominal cramping and bleeding. Patient is 7 weeks . Symptoms started today and cramping is getting worse. Denies taking any medicine for pain. Did have right lower back pain a few days ago. Was 15 weeks in may, had a miscarriage and had to do a D and C. Normal [facility] ED Patient Summaryon 023 ED Patient Summary [facility] - Emergency Department [address] [place], [place] [address] PATIENT DISCHARGE INSTRUCTIONS Patient Information Name: LIA DESAI Age: 21 Years Date of : 2000 Reason For Visit: Vaginal bleeding - < 20 wks ; 7 WEEKS, VAGINAL BLEEDING Arrival Time: 08/11/2022 12:41:34 Primary Care Physician: Provider, None Attending Physician: Andres Duval Comment: Visit Diagnosis: Diagnoses This Visit Miscarriage (O03.9) Vaginal bleeding - < 20 wks ([id number]) The Pharmacy at [facility] is open Saturday through Saturday from 9A to 6P and Saturday and Saturday from 9A to 5P Prescription Information: If you have been given a prescription for narcotics, seek immediate medical attention if you have any difficulty breathing or any sudden status changes such as confusion and sleepiness. If you or anyone you know is experiencing suicidal thoughts, mental health, alcohol and/or drug addiction problems; contact the Mental Health & Recovery Board [facility] 29/10 Crisis Hotline -Text 3AURU jz 041809. If you received any narcotics, sedation, or any other medication that causes drowsiness for the next 24 hours, unless otherwise directed: ? Do not drive a car. ? Do not operate machinery such as power tools, lawn mowers, drills, sewing machines, or stoves ? Avoid alcoholic beverages and drugs for allergies, nerves, or sleep ? 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 It is important for you to follow up with a doctor, nurse practitioner, or physician?s general office assistant for ongoing care. If your symptoms become worse or you do not improve as expected and you are unable to reach your usual health care provider, you should return to the Emergency Department, we are available 24 hours a day. For those patients who have received Radiology results, the interpretation of your X-ray as given to you by our Emergency Department physician is only a preliminary report. The Radiologist will review your films and if there is a change in the diagnosis you will be notified by phone. Please make sure you have provided a working phone number so we can reach you if necessary. In the event that you had a lab culture while you were a patient in the Emergency Department, you will be notified by phone if there is a need to change your antibiotic. Please make sure you have provided a working phone number so we can reach you if necessary. [facility] Emergency Department has provided you with a complete list of medications post discharge. Please inform your chief construction inspector/provider of your visit and for further instruction on these medications. Any specific questions regarding your chronic medications and dosages should be discussed with your primary care physician(s) and/or pharmacist. Additional medications on your home medication list not specifically addressed. Please contact the ordering physician if you have questions about these medications. multivitamin, (WesTab Plus oral tablet) TAKE 1 TABLET BY MOUTH ONCE DAILY. Visit Information Allergies: Substance Reaction Symptoms Type Comments Zithromax Drug Adhesive Bandage Other Vital Signs: Vitals and Measurements this Visit (last charted value for your 08/11/2022 visit) Vital Signs This Visit Temperature Temporal: 36.9 DegC Peripheral Pulse Rate: 80 bpm Respiratory Rate: 16 br/min Systolic Blood Pressure: 135 mmHg Diastolic Blood Pressure: 63 mmHg Mean Arterial Pressure, Cuff-Calculation: 87 mmHg Mean Arterial Pressure Cuff-Monitor: 90 mmHg SpO2: 100 % Oxygen Therapy: Room air Measurements This Visit Height/Length Dosin.640 cm Height/Length Estimated: 167.640 cm Weight Dosin.130 kg Weight Estimated: 111.130 kg Problems List: Problem Onset Comments Acute depression Anxiety Chronic post-traumatic stress disorder (PTSD) Cough Pharyngitis Patient Education Miscarriage A miscarriage is the loss of a before the 20th week of . Sometimes, a ends before a woman knows that she is . If you lose a , talk with your doctor about: ? Questions you have about the loss of your baby. ? How to work through your grief. ? Plans for future . What are the causes? Many times, the cause of this condition is not known. What increases the risk? These things may ma (more content not included)... [facility] Extra Redon 08-11-2022 Tube Collected Yes Invalid Interpretation Code [facility] Comment on above: Performed By: #### 1 [id number], [id number], [id number], [id number], [id number] ####[facility] (DEFAULT)[address] [place] [address] UA Uopwa6es 08-11-2022 UA Amorph. Rare [facility] Comment on above: Order Comment: Urina lysis Microscopic order added on by [employer] Rules system. Performed By: #### 5 [id number] ####[facility] (DEFAULT)[address] [place] [address] UA Bacteria Trace [facility] Comment on above: Order Comment: Urina lysis Microscopic order added on by [employer] Rules system. Performed By: #### 5 [id number] ####[facility] (DEFAULT)[address] [place] [address] UA Mucous Trace [facility] Comment on above: Order Comment: Urina lysis Microscopic order added on by [employer] Rules system. Performed By: #### 5 [id number] ####[facility] (DEFAULT)[address] [place] [address] UA RBC 0-2 [facility] Comment on above: Order Comment: Urina lysis Microscopic order added on by [employer] Rules system. Performed By: #### 5 [id number] ####[facility] (DEFAULT)[address] [place] [address] UA WBC 0-2 [facility] Comment on above: Order Comment: Urina lysis Microscopic order added on by [employer] Rules system. Performed By: #### 5 [id number] ####[facility] (DEFAULT)[address] [place] [address] UA w Culture if Ind Standard on 08-11-2022 Breakpoint UA [facility] Comment on above: Performed By: #### 5 [id number] ####[facility] (DEFAULT)[address] [place] [address] Color (U) Yellow [facility] Comment on above: Performed By: #### 5 [id number] ####[facility] (DEFAULT)[address] [place] [address] Culture? Not Indicated Invalid Interpretation Code [facility] Comment on above: Result Comment: Resu lt created by rule GL_MAGR_ADD_UA_CULT Result created by rule GL_MAGR_ADD_UA_CULT Result created by rule GL_MAGR_ADD_UA_CULT1 Performed By: #### 5 [id number] ####[facility] (DEFAULT)[address] [place] [address] Glucose (U) [Mass/Vol] Negative [facility] Comment on above: Performed By: #### 5 [id number], [id number] ####[facility] (DEFAULT)[address] [place] [address] Ketones Ql (U) Negative [facility] Comment on above: Performed By: #### 5 [id number] ####[facility] (DEFAULT)[address] [place] [address] Micro? Indicated Invalid Interpretation Code [facility] Comment on above: Result Comment: Resu lt created by rule GL_MAGR_ADD_UA_MICRO Performed By: #### 5 [id number] ####[facility] (DEFAULT)[address] [place] [address] UA Bilirubin Negative Normal [facility] Comment on above: Performed By: #### 5 [id number] ####[facility] (DEFAULT)[address] [place] [address] UA Blood MODERATE Abnormal NEGATIVE [facility] Comment on above: Performed By: #### 5 [id number] ####[facility] (DEFAULT)[address] [place] [address] UA Clarity CLEAR Normal CLEAR [facility] Comment on above: Performed By: #### 5 [id number] ####[facility] (DEFAULT)[address] [place] [address] UA Leuk Est Negative Normal NEGATIVE [facility] Comment on above: Performed By: #### 5 [id number], [id number] ####[facility] (DEFAULT)[address] [place] [address] UA Nitrite Negative Normal NEGATIVE [facility] Comment on above: Performed By: #### 5 [id number], [id number] ####[facility] (DEFAULT)[address] [place] [address] UA pH 7.0 Normal 5-8 [facility] Comment on above: Performed By: #### 5 [id number], [id number] ####[facility] (DEFAULT)[address] [place] [address] UA Protein Negative Normal NEGATIVE [facility] Comment on above: Performed By: #### 5 [id number], [id number] ####[facility] (DEFAULT)[address] [place] [address] UA Spec Grav <=1.005 Normal 1.001-1.035 [facility] Comment on above: Performed By: #### 5 [id number] ####[facility] (DEFAULT)[address] [place], [place] [id number] UA Urobilinogen 0.2 mg/dL Normal 0.2-1.0 [facility] Comment on above: Performed By: #### 5 [id number] ####[facility] (DEFAULT)[address] [place] [address] Urine Source Clean Catch [facility] Comment on above: Performed By: #### 5 [id number], [id number] ####[facility] (DEFAULT)[address] [place] [address] US 1st Trimesteron 08-11-2022 US 1st Trimester EXAM: US 1st Trimester HISTORY: vaginal bleeding, 7 weeks COMPARISON: 08/08/2022. TECHNIQUE: Ultrasound obstetrical first trimester. FINDINGS: Single intrauterine gestation which has migrated into the lower uterine segment. No cardiac activity is identified. Yolk sac is present. [employer]-rump length measurement of 1.1 cm yielding estimated gestational age of 7 weeks and 1 day. Small volume of free fluid within the pelvic cul-de-sac. The uterus measures 8.1 x 6.8 x 4.1 cm. The right ovary measures 2.8 x 2.7 x 2.1 cm containing a 1 cm complex cyst, likely a corpus luteal cyst. The left ovary measures 3.3 x 1.7 x 1.3 cm. Appropriate arterial and venous waveforms are noted within the ovaries bilaterally. IMPRESSION: 1. Single intrauterine gestation is identified. There has been migration of the gestational sac into the lower uterine segment as compared to the prior study dated 08/08/2022. Currently, no cardiac activity is identified, raising concern for AB progress. 2. A 1 cm complex right ovarian cyst, likely a corpus luteal cyst. 3. Small volume of free fluid within the pelvis. Final Dictated by: Jori Churchill Dictated DT/TM: 08/11/22 3:36 Signed (Electronic Signature): Jori Churchill 08/11/22 4:11 pm Technologist: [facility] US Transvaginalon 08-11-2022 US Transvaginal EXAM: US 1st Trimester HISTORY: vaginal bleeding, 7 weeks COMPARISON: 08/08/2022. TECHNIQUE: Ultrasound obstetrical first trimester. FINDINGS: Single intrauterine gestation which has migrated into the lower uterine segment. No cardiac activity is identified. Yolk sac is present. [employer]-rump length measurement of 1.1 cm yielding estimated gestational age of 7 weeks and 1 day. Small volume of free fluid within the pelvic cul-de-sac. The uterus measures 8.1 x 6.8 x 4.1 cm. The right ovary measures 2.8 x 2.7 x 2.1 cm containing a 1 cm complex cyst, likely a corpus luteal cyst. The left ovary measures 3.3 x 1.7 x 1.3 cm. Appropriate arterial and venous waveforms are noted within the ovaries bilaterally. IMPRESSION: 1. Single intrauterine gestation is identified. There has been migration of the gestational sac into the lower uterine segment as compared to the prior study dated 08/08/2022. Currently, no cardiac activity is identified, raising concern for AB progress. 2. A 1 cm complex right ovarian cyst, likely a corpus luteal cyst. 3. Small volume of free fluid within the pelvis. Final Dictated by: Jori Churchill Dictated DT/TM: 08/11/22 3:36 Signed (Electronic Signature): Jori Churchill 08/11/22 4:11 pm Technologist: [facility] Normal [facility] hCG Quantitativeon 3 hCG Quantitative 4616.0 mIU/mL High 0.0-0.6 [facility] Comment on above: Result Comment: Post -Menopausal Reference Range is: 0.1-11.6 mIU/mL Performed By: #### 1 [id number] ####[facility] (DEFAULT)[address] [place] [address] US PREG TVon 08-08-2022 US PREG TV EXAMINATION: US PREG TV HISTORY: Missed period COMPARISON: No relevant comparison available. FINDINGS: CRL: 0.64 cm, 6 weeks 4 days Yolk sac: 3.2 mm Heart rate: 120 bpm Cervix: 3.9 cm, closed Uterus is normal, retroverted, retroflexed The ovaries are normal in appearance Clinical age: 7 weeks 5 days Clinical MONIQUE: 03/22/2023 Ultrasound age: 6 weeks 4 days Ultrasound MONIQUE: 03/30/2023 IMPRESSION: Viable andre intrauterine gestation measuring 6 weeks 4 days Electronically authenticated by: CHRISTIAN KATE Date: 2022-08-08 16:56 Normal [facility] Coding Summaryon 06-19-2022 Coding Summary HTMLBase 64 TurziitqVHa0vXg+PGhl YWQ+EU1DLZEiX66muQTj oW0WX3pRMX6VUYOCUKYD JT7EGV8qnDL1JFdxR9Sb biAv SviyaFZcEC38MYb6RRQ4 yUcsODrvfC4slXGvV4r0 PfAoAB63hX99HFfgEDYc CrW1BtGxsvswwWKx X3ucYeJtpEKhRdv+PHRh YmxlIHdpZHRoPScxMDAl LpUloNarSF8sNo9iKWBw LWNvbGxhcHNlOiBj m6ocOKDtUDvsQN4rnUjy Y5BirFY2KTMfz3q7Zq07 dHI+VRWqAUJ3bVhvNMhk b421JhErn5kuFVC0 cOBdCYhbIVT7K12ka0H2 QJNkTLMpZYF7fBW1gF6w rCbmytvrS7AhlXEhYmL6 UOD2tFKvvE4htTtb nrfyyS8fKeh+B85BII7V TYYZTM5LIcd5U1MxWare dHI+KU24NRIpIL14fPBb yFUyb3uosPc1WhGb DUGeMTQ4yDwhQHpsd1Gn WPBwG28dyCUtt0P0VVDy sErejJCuHbCmiMD8yK2f YDynnulix3dnavzp Nbczb7lidd09kW04R99f AWemVNOmDIH1TSUvICBc iYqfcz7unE5vPe1+IDxj n8pmp0miwZv7JuEj AMFucsLwcPnwOAN7z7Br Ce48X9MczQykt0BfCcy2 sk24qCBdu2N4wQZ2MBkd CFQyoV2tGHeiZdI9 EDHyMhYaoG83gTSlJLmc Ui4ibXbcxSnkVV1yORSy qctyGEFxuA6cWRQmmWSv qWgqXQ6yXIJutgdm v720RpQlSIP9AONqeVRk W2UvxN9eSfHnCBDwPTWi I7PffVFqPDaxC008AFcq YiH4HLXwksPvY9Vs WBYtdHhjRcS8i0T2Bc0G d6NpvtqdEBN2AKfzLAPz TeR9UhZeAwF3T2RtPgw1 TPGskJswYN4dT9Jr VJCiilgonrqmjMF0EDWw DLJktF08tRAtJIpjJf0a e9U4v094EFZuMYFxbS39 Te8nqLodUEZhlQYL wG7njueih5ssqnezDcWg OVFnIQu6FYi2BRCsiYyd CzSyTLJ3GzQ1BAG0uRJb cD7bgLeuzcmwlQ6p Oyc+T59tkM0kTQU3IVV7 psifSTHmtmMqSE10ZR48 R1AxHgpmdCTgmVZ+PGRp qxQcuBdqSH2xKnWs k9amc6ZhFZpzI6WzXTXg NQwnYdo1UBHfDEJ9jBM3 eW2iIKArRGcpx8V3aZO8 E0OhyfPndx9lx5vp YBIfVYsaG64kyRLew8Q8 ISSxfJS9BGLzsMauEaFh iR92Lsi+JLDytQwzr8Fw Xtues6oio7jzyAi8 IjMwJSIgdmFsaWduPSJ0 i7PjKv53J13fJZfvVKTs MAPvXYDoTJVjcAzgls4f yV6dJy4+PGNvbCB3 bII3sO2wJQLhQsS8PAdq Z510XsDoxHOiJjvkf1ze m1pcdLc6DrFnLWAdweNo nOzdNEQ3d8FkOd37 E43pNXyfEMAmCYRvUFRw DOZvcHgjvk6zkZ1wWg9+ ID4kj5mkam11cB33bVT+ FITxRNN3eSztGUqf FHQzqB3xTIeiFuJ1OEBf EdCfrJ40ySWwGQiyLc6v nTmlpKokKL1kIYSgwert p098TkFhu8cxQCHe eTXnRYyiOFK5Z36lz8L0 YVJoXEZjSKZ9xEQ2kE9j bGlnbjogbGVmdDsgdmVy fXxkHMswWTpjH235 IHRvcDsnPlBhdGllbnQg ZpNxBBw2R9YqDte6RXUl vWibTW7ahLRrPVobDy9v aGsvlWmoTV3oXVLf ovscc192DjMfz4pdIHJx eOYoJYrbMUI2L66sm7D0 FOUrNXYfQZE4rRF4jA6v bGlnbjogbGVmdDsg oxPovJieHFvqTNcaD028 IHRvcDsnPkJpcnRoIERh cGW8GB88RZ32pKPey8X1 hZF7J5BuARHdftlz hvghzTF1UQDdIFSvhJ68 Dv4wmTgyQd0bRIFgEWA8 NMTcvYGgV9BexZ0nUxGy EMDfOPIuD2ZpdJJc NTitQ604RSdkRgQ4DCJj tpFrJ3McXGGqeOysOxB4 x5U4Wt4AC7N4TG13EW97 iXYqx7D1uPE5G1Su GCNwxijysnrzbFV4PYVi YRYmyC00Xj3dmVraVg4x FOEeWBR6ATJhcAPqA3Qb uK5sEfChIYNmFHTk C9KqkDVjJDxeD776NVsf KyU7AONwhbCwV4BxAHHl uDjmEiU6w0Y5Qu7ICJk1 UC54HT34zTAmf0N8 hID9U5RjHFVplxnmximc rBX3QQCrMTViqZ62Cw4f cBweRu7gRSIaWAX0GDMz xCVkR5LliE6oIvAl RPEuZXSiV3TmsDHvPMfe W111DBggEzS5PPRwqeMu E2SoXXYnpNduGlU0m6N1 Vi0QUIUjPA73JHV4 hTP9II71PK58S3NwDcsm dGFibGU+PHRhYmxlIHdp ZHRoPScxMDAlJyBzdHls OA7gMo2iIDPrQVZm wKtrzKNpEvWbu3hgRGLx GHeoXJ6taElrM4IrnTQ2 EGPlj9v7Cu26Y81jX4Uf dXA+VXEspZB3bOK4 fQ7eTaPkPeK2BDdkI638 YoRynLMkFvpye4oew9ad uRn3LpN7OWDbtsLcsRsu VTG4x4BfZc52X64m IHdpZHRoPSIxNSUiIHZh pKtsgn3ovI4iNz1+PGNv iQC0aGF2pN7qIyZcAzE7 IUwgL496LfUxeILv Odbsi1xxs1jwrCx0CqWa FUFhboEmjHzbXEE0b1Qy Gu89H7CohVvmi1CnDlv9 wh85zOSpe0N1tRE5 X9LfKHCnlcuccRUmwHto CL3zOEKndubkAMLtxP3t DGVyI9e9NbUkGnW1ZPkz G3CszdS8VVWuhXQl DWnfMBD8I19ee0P5OEGr IKJgGHN1jIQ6fQ1daEpu bjogbGVmdDsgdmVydGlj WRpdCRtoA252CXBl tXewTODltD4aOLTmdYRo oTlaVJ5sPOJwedvdDcuF TEJFUlQsIFNIRUxCWSBM OMLHLyM1V6UyZna1 VTUxeCtdVL1lwWAuUZbi Vc6fjHddcBxbLJ8eUIHx nhkpPDBdgA5gJIInsHRp iFcaTT1hVNRsoxmn p159UmDlYFF9IPFijLLt T2MwkH6zBuWwHOWzLZEx J5QteIUtDIomO393ZTtt PuC3IIItcuYpZ9Qg QBAdkPorGjE0y1Y0Af6j Co1kGm2lWOFwTH62IR86 xUEol0V6dLU8N0PiDKMr crelrjghnWO6MHTz XDIasF06jOAkFQabMz0o q2E4n767REKqKZPmuR47 Iv3saHwhOOAhwRCQrY6n xaelu1mczopbImHg THRxKSw7PRd8EARcwRcd MsOgLKE5WbV1HIW4zJEd zH7leEkfisnmoJ6uSxq+ ViOnLTMadwA8E6Xj Bqf3TGHxlDquTZ3kqAJh DUojCe0wlXdvwTzmZE5w VIMsostaWMGkoT8wMZCt hVCtqZmqBW6aQRNt ysldq501IwBxRWR5MGIe nJQzP8WebM3gFqDuNKId RMGiH1WolPWiRPaaA441 LGulTfK2EIPngbNk O1MrTVAktWfcWuO7c8W3 Ar1OFN8EXWD1M7HoGly9 MQOnaRwqSP4cmTDcZKrl Wm1rtHbdzBzkXD9w HYGgkfiaNYZgjA2xRAZw qXOsmPlpKF4zSXZeectr i922BrLaDEI5WWIjlZNv J2NlkG2lUqAhLNXp RYFdU6KloQAoTTwgX231 BByoEeX7BZGmilJzZ0Ay EHEikQafYeT4d7T0Qf9O UDwvdGQ+UD01cm31 A8ZhKncbTrb0HBKbYPR3 eCH7pL0rTBUlEVmus4P5 fCU0D3UfjjHzlz8dt7hv VKMjVJbcH69dlXFc g1C5XJMudMC6TUCvjOez HgRvnX79Ylz+PGNvbGdy y8LjOydkt2itw5sitEe6 IjMwJSIgdmFsaWdu LMJ9n0GkAf16G07fZPbj ZHRoPSIzMCUiIHZhbGln aj3avS0nKv9+PGNvbCB3 hCH1lE6dQbUqPgM4 ALcdV792IsOepMLlNhfh s5cuo4xgqUt0OtBeOZUk acVapCosNFJ1i8UcHx50 L7TwqNcvt7KsEge4 up89kAVzv9B9jCI0Y9Lm WTKckrhypRPnwTodIC6h MJKnaopxDKYiwM8kVQXt T7e6UyGuIwK7BWjl S8LiubV9KWQquUBuQIFd rNPZsJ4xxvjzb0kjgtsq ZxOxPCTwJEn2YXt3NWOx kXqjOsCiRMR1YqL6 GYU5hIAqvH4ajZpjlqao gY5gIld+LQm6j3icuKJm VV7jwPQ3OM48XP96aFQl j0S8sYL0X9TiLVQm oibirxmzqSD8FLBySDVz gK69Nk8wmQwmQh0vSCGx GSW7ERViyTOpT2MsqY8i VsHoXHCgXMMhF6Hz sJRkIYvnW456FHjgSgM1 EPCnhwDjB9GhUFDasBpk HqA9o2R3Xv1OED32ZD27 NQ63eANqx1P4cRN1 A7YpMLKwpmvrtgvazNS6 PWNkUVUymA44Uq6qqVcd Hw9bDONrPJE3LXEbgIZn W9RfcH2xElEiEAZg YTWdH5NrqKLlNSdnL577 VUoySiL9CSJudrJzW0Md WNOkcTibIyF8x8F8Rl9P Ot75TH86ZF90uDLt o5N2wHA1M0WaAREkvdls joivuXM5ALFlOHAzrT07 Yj3yaWenJf8qLUDcWTU6 YGTzgLXsH3WcwR9t UlOkPPKiYUZqU0ZubHDw MQhoX595NUcbUjM5VCZu eeGpB5VpDBSeeNahHlG7 c8B7Oh7VURrnysr0 Z8RrQhhmqPG+KV16ITNs PY82hNGjzTTug2udyKe5 KeDfFLDqBRD8hNsaVNef r7DoKJVuP82paSWi c2U (more content not included)... Normal [facility] C Throaton 06-14-2022 C Throat Ordered by Discern. Normal throat jonny isolated No pathogens isolated Normal [facility] Comment on above: Performed By: #### 1 [id number] #### [facility] (DEFAULT) [address] [place] [address] ED Clinical Summaryon 2022 ED Clinical Summary [facility] ? Urgent Care [address] [place] [address] Clinical Summary PERSON INFORMATION Name: LIA DESAI Age: 21 Years Sex: FEMALE : 2000 MRN: Acct#: Visit Reason: UC - Sore Throat; UC - Body Aches; SORE THROAT, COUGH, BODY ACHES Arrival: 06/12/2022 16:17:17 Discharge: 06/12/2022 17:23:00 LOS: 000 01:06 Check In: 06/12/2022 16:17:17 Checkout: 06/12/2022 17:23:00 Address: [facility] [address] [place] [address] PCP: Provider, None PROVIDER INFORMATION Provider Role Assigned Unassigned Birdie James CLASSROOM COORDINATOR Nurse 06/12/2022 16:19:28 Nelson Sharma PA-C ED PA 06/12/2022 16:22:15 VITALS INFORMATION Vital Sign Triage Latest Temperature Tympanic Temperature Temporal Artery Pulse Rate O2 Sat 98 % 98 % Respiratory Rate Blood Pressure /76 mmHg /76 mmHg MEDICAL INFORMATION Medications Given: Allergy Information: Adhesive Bandage; Zithromax PHYSICIAN DOCUMENTATION DISCHARGE INFORMATION: Discharge Disposition: Home Discharge Location: Home PATIENT EDUCATION INFORMATION Instructions: Cough, Adult, Cgam-xu-Pers; Pharyngitis, Ilms-bs-Zqeb Follow-Up: With: Address: When: None Provider [address] [place] [id number] Within 1 week Comments: Please follow-up with your primary care provider, call the office schedule an appointment to be seen in a week or sooner for continued care, you will be notified with your results, please take as Tessalon Perles as prescribed, take gisp-knt-iwalasb ibuprofen and Tylenol as needed for fevers, body aches, or headaches. Drink plenty of water to stay hydrated, and return back to the urgent care center for any worsening symptoms, concerns, or complications. DIAGNOSIS: 1:Pharyngitis; 2:Cough Patient Understands: Yes - Patient/family/careg iver verbalizes understanding of instructions given Comment: Normal [facility] ED Patient Summaryon 023 ED Patient Summary [facility] ? Urgent Care [address] [place] [id number] PATIENT DISCHARGE INSTRUCTIONS Patient Information Name: LIA DESAI Age: 21 Years Date of : 2000 Reason For Visit: UC - Sore Throat; UC - Body Aches; SORE THROAT, COUGH, BODY ACHES Arrival Time: 06/12/2022 16:17:17 Primary Care Physician: Andreia, Tyson Attending Physician: Nelson Sharma PA-C Comment: Patient Education With: Address: When: None Provider [address] [place] [id number] Within 1 week Comments: Please follow-up with your primary care provider, call the office schedule an appointment to be seen in a week or sooner for continued care, you will be notified with your results, please take as Tessalon Perles as prescribed, take verh-fgh-cfevxjw ibuprofen and Tylenol as needed for fevers, body aches, or headaches. Drink plenty of water to stay hydrated, and return back to the urgent care center for any worsening symptoms, concerns, or complications. Cough, Adult A cough helps to clear your throat and lungs. A cough may be a sign of an illness or another medical condition. An acute cough may only last 2?3 weeks, while a chronic cough may last 8 or more weeks. Many things can cause a cough. They include: ? Germs (viruses or bacteria) that attack the airway. ? Breathing in things that bother (irritate) your lungs. ? Allergies. ? Asthma. ? Mucus that runs down the back of your throat (postnasal drip). ? Smoking. ? Acid backing up from the stomach into the tube that moves food from the mouth to the stomach (gastroesophageal reflux). ? Some medicines. ? Lung problems. ? Other medical conditions, such as heart failure or a blood clot in the lung (pulmonary embolism). Follow these instructions at home: Medicines ? Take iucw-jmb-jxcgyob and prescription medicines only as told by your doctor. ? Talk with your doctor before you take medicines that stop a cough (cough suppressants). Lifestyle ? Do not smoke, and try not to be around smoke. Do not use any products that contain nicotine or tobacco, such as cigarettes, e-cigarettes, and chewing tobacco. If you need help quitting, ask your doctor. ? Drink enough fluid to keep your pee (urine) pale yellow. ? Avoid caffeine. ? Do not drink alcohol if your doctor tells you not to drink. General instructions ? Watch for any changes in your cough. Tell your doctor about them. ? Always cover your mouth when you cough. ? Stay away from things that make you cough, such as perfume, candles, campfire smoke, or cleaning products. ? If the air is dry, use a cool mist vaporizer or humidifier in your home. ? If your cough is worse at night, try using extra pillows to raise your head up higher while you sleep. ? Rest as needed. ? Keep all follow-up visits as told by your doctor. This is important. Contact a doctor if: ? You have new symptoms. ? You cough up pus. ? Your cough does not get better after 2?3 weeks, or your cough gets worse. ? Cough medicine does not help your cough and you are not sleeping well. ? You have pain that gets worse or pain that is not helped with medicine. ? You have a fever. ? You are losing weight and you do not know why. ? You have night sweats. Get help right away if: ? You cough up blood. ? You have trouble breathing. ? Your heartbeat is very fast. These symptoms may be an emergency. Do not wait to see if the symptoms will go away. Get medical help right away. Call your local emergency services (911 in the [place] Do not drive yourself to the hospital. Summary ? A cough helps to clear your throat and lungs. Many things can cause a cough. ? Take mijq-cwk-rgrtqed and prescription medicines only as told by your doctor. ? Always cover your mouth when you cough. ? Contact a doctor if you have new symptoms or you have a cough that does not get better or gets worse. This information is not intended to replace advice given to you by your health care provider. Make sure you discuss any questions you have with your health care provider. Document Revised: 05/13/2020 Document Reviewed: 04/13/2019 [employer] Patient Education ? 2021 [employer]. Pharyngitis Pharyngitis is a sore throat (pharynx). This is when there is redness, pain, and swelling in your throat. Most of the time, this condition gets better on its own. In some cases, you may need medicine. What are the causes? ? An infection from a virus. ? An infection from bacteria. ? Allergies. What increases the risk? ? Being 5?24 years old. ? Being in crowded environments. These include: ? Daycares. ? Schools. ? Dormitories. ? Living in a place with cold temperatures outside. ? Having a weakened disease-fighting (immune) system. What are the signs or symptoms? Symptoms may (more content not included)... Normal [facility] Strep Aon 06-12-2022 Strep procedure control Pass Normal [facility] Comment on above: Performed By: #### 1 [id number] #### [facility] (DEFAULT) [address] [place] [address] Streptococcus A Negative Normal Negative [facility] Comment on above: Performed By: #### 1 [id number] #### [facility] (DEFAULT) [address] [place] [address] Urgent Care [place] 023 Urgent Care Record [facility] ? Urgent Care [address] [place] [address] PATIENT DISCHARGE INSTRUCTIONS Patient Information Name: LIA DESAI Age: 21 Years Date of : 2000 Reason For Visit: UC - Sore Throat; UC - Body Aches; SORE THROAT, COUGH, BODY ACHES Arrival Time: 06/12/2022 16:17:17 Primary Care Physician: Provider, None Attending Physician: Nelson Sharma PA-C Comment: Visit Diagnosis: Diagnoses This Visit Cough (R05.9) Pharyngitis (J02.9) UC - Body Aches ([id number]) UC - Sore Throat ([id number]) If you received any narcotics, sedation, or any other medication that causes drowsiness for the next 24 hours, unless otherwise directed: ? Do not drive a car. ? Do not operate machinery such as power tools, lawn mowers, drills, sewing machines, or stoves ? Avoid alcoholic beverages and drugs for allergies, nerves, or sleep ? Do not make important personal or business decisions or sign any legal documents With: Address: When: None Provider [address] [place] [address] Within 1 week Comments: Please follow-up with your primary care provider, call the office schedule an appointment to be seen in a week or sooner for continued care, you will be notified with your results, please take as Tessalon Perles as prescribed, take [id number]-[id number] ibuprofen and Tylenol as needed for fevers, body aches, or headaches. Drink plenty of water to stay hydrated, and return back to the urgent care center for any worsening symptoms, concerns, or complications. Medication Information: The exam and treatment you received today in the [facility] were for an urgent problem and are not intended as complete care. It is important for you to follow up with a doctor, nurse practitioner, or physician?s general office assistant for ongoing care. If your symptoms become worse or you do not improve as expected and you are unable to reach your usual health care provider, you should return to the Emergency Department, we are available 24 hours a day. For those patients who have received Radiology results, the interpretation of your X-ray as given to you by our Urgent Care physician is only a preliminary report. The Radiologist will review your films and if there is a change in the diagnosis you will be notified by phone. Please make sure you have provided a working phone number so we can reach you if necessary. In the event that you had a lab culture while you were a patient in the Urgent Care, you will be notified by phone if there is a need to change your antibiotic. Please make sure you have provided a working phone number so we can reach you if necessary. [facility] has provided you with a complete list of medications post discharge. Please inform your chief construction inspector/provider of your visit and for further instruction on these medications. Any specific questions regarding your chronic medications and dosages should be discussed with your primary care physician(s) and/or pharmacist. New Medications [facility] [place], [place] [id number], [phone] benzonatate (Tessalon Perles 100 mg oral capsule) 1 cap(s) Oral 3 times a day for 7 Days. Refills: 0. Visit Information Allergies: Substance Reaction Symptoms Type Comments Zithromax Drug Adhesive Bandage Other Vital Signs: Vitals and Measurements this Visit (last charted value for your 06/12/2022 visit) Vital Signs This Visit Temperature Oral: 37.1 DegC Peripheral Pulse Rate: 98 bpm Respiratory Rate: 16 br/min Systolic Blood Pressure: 110 mmHg Diastolic Blood Pressure: 76 mmHg SpO2: 98 % Oxygen Therapy: Room air Blood Pressure Method: Manual Measurements This Visit Height/Length Measured: 170.18 cm Weight Measured: 106.59 kg Body Mass Index: 36.8 kg/m2 BSA Measured: 2.24 m2 Problems List: Problem Onset Comments Acute depression Anxiety Chronic post-traumatic stress disorder (PTSD) Cough Pharyngitis Patient Education Cough, Adult A cough helps to clear your throat and lungs. A cough may be a sign of an illness or another medical condition. An acute cough may only last 2?3 weeks, while a chronic cough may last 8 or more weeks. Many things can cause a cough. They include: ? Germs (viruses or bacteria) that attack the airway. ? Breathing in things that bother (irritate) your lungs. ? Allergies. ? Asthma. ? Mucus that runs down the back of your throat (postnasal drip). ? Smoking. ? Acid backing up from the stomach into the tube that moves food from the mouth to the stomach (gastroesophageal reflux). ? Some medicines. ? Lung problems. ? Other medical conditions, such as heart failure or a blood clot in the lung (pulmonary embolism). Follow these instructions at home: Medicines ? Take hboz-riv-bvsopug and prescription medicines only as told by your doctor. (more content not included)... Normal [facility] US PELVIS AND TRANSVAGon US PELVIS AND TRANSVAG EXAMINATION: US PELVIS AND TRANSVAG HISTORY: Retention of part of placenta and uterine membrane without hemorrhage ; dilation and curettage 2 weeks ago COMPARISON: No relevant comparison available. TECHNIQUE: Transabdominal and transvaginal sonographic examination. FINDINGS: UTERUS: Normal size and appearance. Uterus size: 7.0 x 5.2 x 4.0 cm ENDOMETRIUM: Slightly heterogeneous endometrium, 10 mm in thickness with trace amount of fluid within endometrial cavity, 1.0 x 0.6 x 0.1 cm. No hyperechoic tissue to suggest retained products. Endometrial thickness: 10 mm RIGHT OVARY: Complex 2.1 cm cyst, likely collapsing corpus luteal cyst. Duplex Doppler demonstrates normal waveform and flow; resistive index 0.5. Ovary size: 3.9 x 3.3 x 3.3 cm LEFT OVARY: Normal size and appearance. Duplex Doppler demonstrates normal waveform and flow; resistive index 0.4. Ovary size: 3.4 x 2.1 x 1.7 cm CUL-DE-SAC: Trace amount of free fluid, likely physiologic. BLADDER: Unremarkable. OTHER: None. IMPRESSION: 1. No retained products of conception within the uterus. Electronically authenticated by: ANGELA SCOTT Date: 2022-06-04 06:57 Normal [facility] US PREG TVon 05-16-2022 US PREG TV EXAMINATION: US PREG TV HISTORY: Uncertain viability of COMPARISON: 03/28/2022 FINDINGS: Andre intrauterine gestation Gestational sac: Irregular Yolk sac: Not visualized pole: 1.69 cm, 8 weeks 1 day Cardiac activity: Not visualized Uterus is normal, anteverted, anteflexed The right ovary is not visualized Left ovary is normal Findings were relayed by the technologist to the ordering physician IMPRESSION: No cardiac activity identified consistent with demise Electronically authenticated by: CHRISTIAN KATE Date: 2022-05-16 18:15 Normal [facility] HEP B SURFACE ANTIGEN SCREEN on 04-20-2022 HBsAg Screen Negative Normal Negative [facility] Comment on above: Performed By: #### H BSANS #### [facility] [address] [place] [address] Dr. Jeronimo Melgar HEPATITIS C VIRUS AB W/ REFL EX QUANTon 04-20-2022 HCV AB <0.1 Normal 0.0-0.9 [facility] Comment on above: Performed By: #### H CVPCRR #### [facility] [address] [place] [address] Dr. Jeronimo Melgar Interpretation: Comment Normal [facility] Comment on above: Result Comment: Nega tive Not infected with HCV, unless recent infection is suspected or other evidence exists to indicate HCV infection. Performed By: #### H CVPCRR #### [facility] [address] [place] [address] Dr. Jeronimo Melgar HIV 1 AND 2 WITH REFLEXon HIV Screen 4th Generation wRfx Non-Reactive Normal Non Reactive [facility] Comment on above: Result Comment: HIV Negative HIV-1/HIV-2 antibodies and HIV-1 p24 antigen were NOT detected. There is no laboratory evidence of HIV infection. Performed By: #### H IV12 #### [facility] [address] [place] [address] Dr. Jeronimo Melgar RPR QUANTon 04-20-2022 Rapid Plasma Reagin, Quant Non-Reactive Normal NonRea<1:1 [facility] Comment on above: Result Comment: Plea se Note: This test does not meet current guidelines for screening and diagnosis of syphilis. This test is intended for following treatment response in patients being treated for syphilis infection. To screen for syphilis infection, a reflex cascade that includes both RPR and a treponema-specific assay should be utilized, such as Treponema pallidum (Syphilis) Screening [place] (384782) or Rapid Plasma Reagin (RPR) Test With Reflex to Quantitative RPR and Confirmatory Treponema pallidum Antibodies (854947). Performed By: #### R PRQ #### [facility] [address] [place] [address] Dr. Jeronimo Melgar RUBELLA AB IGGon 04-20-2022 Rubella Antibodies, IgG 1.85 index Normal Immune >0.99 [facility] Comment on above: Result Comment: Non- immune <0.90 Equivocal 0.90 - 0.99 Immune >0.99 Performed By: #### B OX #### [facility] [address] [place] [address] Dr. Jeronimo Melgar BOX TEST SENT OUTon 04-19-19 23 SENT TO REF LAB 04/19/2022 Normal [facility] Comment on above: Performed By: #### B OX #### [facility] [address] [place] [address] Dr. Jeronimo Melgar CBC AUTO DIFFon 04-19-2022 BASO # 0.1 103/ul Normal 0.0-0.1 [facility] Comment on above: Performed By: #### B OX #### [facility] [address] [place] [address] Dr. Jeronimo Melgar Basophils/100 WBC (Bld) 0.5 % Normal 0.2-2.0 [facility] Comment on above: Performed By: #### B OX #### [facility] [address] [place] [address] Dr. Jeronimo Melgar EO # 0.1 103/ul Normal 0.0-0.7 [facility] Comment on above: Performed By: #### B OX #### [facility] [address] [place] [address] Dr. Jeronimo Melgar Eosinophils/100 WBC (Bld) 0.7 % Critically low 0.9-7.0 [facility] Comment on above: Performed By: #### B OX #### [facility] [address] [place] [address] Dr. Jeronimo Melgar Erythrocyte distribution width (RBC) [Ratio] 12.8 % Normal 11.0-15.0 [facility] Comment on above: Performed By: #### B OX #### [facility] [address] [place] [address] Dr. Jeronimo Melgar Hematocrit (Bld) [Volume fraction] 43.7 % Normal 36.0-48.0 [facility] Comment on above: Performed By: #### B OX #### [facility] [address] [place] [address] Dr. Jeronimo Melgar Hemoglobin (Bld) [Mass/Vol] 13.1 g/dL Normal 12.0-16.0 [facility] Comment on above: Performed By: #### B OX #### [facility] [address] [place] [address] Dr. Jeronimo Melgar IG # 0.02 10e3/ul Normal 0.00-0.03 [facility] Comment on above: Performed By: #### B OX #### [facility] [address] [place] [address] Dr. Jeronimo Melgar IG % 0.2 % Normal 0.0-0.5 [facility] Comment on above: Performed By: #### B OX #### [facility] [address] [place] [address] Dr. Jeronimo Melgar LYMPH # 2.6 103/ul Normal 1.2-3.8 [facility] Comment on above: Performed By: #### B OX #### [facility] [address] [place] [address] Dr. Jeronimo Melgar Lymphocytes/100 WBC (Bld) 27.3 % Normal 20.5-60.0 [facility] Comment on above: Performed By: #### B OX #### [facility] [address] [place] [address] Dr. Jeronimo Melgar MANUAL DIFF REQ NO Normal [facility] Comment on above: Performed By: #### B OX #### [facility] [address] [place] [address] Dr. Jeronimo Melgar MCH (RBC) [Entitic mass] 27.7 pg Normal 26.7-34.0 [facility] Comment on above: Performed By: #### B OX #### [facility] [address] [address] [address] Jeronimo Melgar MCHC (RBC) [Mass/Vol] 30.0 g/dL Normal 29.9-35.2 [facility] Comment on above: Performed By: #### B OX #### [facility] [address] [place] [address] Dr. Jeronimo Melgar MCV (RBC) [Entitic vol] 92.4 fL Normal 81.0-99.0 [facility] Comment on above: Performed By: #### B OX #### [facility] [address] [place] [address] Dr. Jeronimo Melgar MONO # 0.8 103/ul Normal 0.3-0.8 [facility] Comment on above: Performed By: #### B OX #### [facility] [address] [place] [address] Dr. Jeronimo Melgar Monocytes/100 WBC (Bld) 7.8 % Normal 1.7-12.0 [facility] Comment on above: Performed By: #### B OX #### [facility] [address] [place] [address] Dr. Jeronimo Melgar NEUT # 6.1 103/ul Normal 1.4-6.5 [facility] Comment on above: Performed By: #### B OX #### [facility] [address] [place] [address] Dr. Jeronimo Melgar Neutrophils/100 WBC (Bld) 63.5 % Normal 43.0-75.0 [facility] Comment on above: Performed By: #### B OX #### [facility] [address] [place] [address] Dr. Jeronimo Melgar Platelet mean volume (Bld) [Entitic vol] 10.7 fL Normal 9.5-13.5 [facility] Comment on above: Performed By: #### B OX #### [facility] [address] [place] [address] Dr. Jeronimo Melgar PLT 399 103/ul Normal 150-450 [facility] Comment on above: Performed By: #### B OX #### [facility] [address] [place], [place] [id number] Dr. Jeronimo Melgar RBC 4.73 106/ul Normal 4.20-5.40 [facility] Comment on above: Performed By: #### B OX #### [facility] [address] [place] [address] Dr. Jeronimo Melgar WBC 9.6 103/ul Normal 4.0-11.0 [facility] Comment on above: Performed By: #### B OX #### [facility] [address] [place] [address] Dr. Jeronimo Melgar CULTURE URINEon 04-19-2022 CULTURE URINE Culture Observations: LIGHT GROWTH OF MIXED GENITAL JONNY. NO POTENTIAL PATHOGENS SEEN. Normal [facility] Comment on above: Performed By: #### B OX #### [facility] [address] [place] [address] Dr. Jeronimo Melgar DRUG SCREEN RAPID (URINE)on 04-19-2022 AMP Negative Normal NEGATIVE [facility] Comment on above: Performed By: #### H IV12 #### [facility] [address] [place] [address] Dr. Jeronimo Melgar BAR Negative Normal NEGATIVE [facility] Comment on above: Performed By: #### H IV12 #### [facility] [address] [place] [address] Dr. Jeronimo Melgar BUP Negative Normal NEGATIVE [facility] Comment on above: Performed By: #### H IV12 #### [facility] [address] [place] [address] Dr. Jeronimo Melgar BZO Negative Normal NEGATIVE [facility] Comment on above: Performed By: #### H IV12 #### [facility] [address] [place] [address] Dr. Jeronimo Melgar KRISTINA Negative Normal NEGATIVE [facility] Comment on above: Performed By: #### H IV12 #### [facility] [address] [place] [address] Dr. Jeronimo Melgar CUT-OFFS SEE BELOW Normal [facility] Comment on above: Result Comment: AMP (Amphetamine): 500ng/mL, BAR (Barbituates): 200 ng/mL, BZO (Benzodiazepines): 150 ng/mL, BUP (Buprenorphine): 10 ng/mL, KRISTINA (Cocaine): 150 ng/mL, mAMP (Methamphetamine): 500 ng/mL, MTD (Methadone): 200 ng/mL, OPI (Opiates): 100 ng/mL, OXY (Oxycodone): 100 ng/mL, PCP (Phencyclidine): 25 ng/mL, PPX (Propoxyphene): 300 ng/mL, THC (Cannabinoids): 50 ng/mL, TCA (Trycyclic Antidepressants): 300 ng/mL Performed By: #### H IV12 #### [facility] [address] [place] [address] Dr. Jeronimo Melgar DRUG CUT HEADER DRUG CLASS TEST SYSTEM CUT-OFF CONCENTRATIONS ARE FOLLOWS: Normal [facility] Comment on above: Performed By: #### H IV12 #### [facility] [address] [place] [address] Dr. Jeronimo Melgar mAMP Negative Normal NEGATIVE [facility] Comment on above: Performed By: #### H IV12 #### [facility] [address] [place] [address] Dr. Jeronimo Melgar MTD Negative Normal NEGATIVE [facility] Comment on above: Performed By: #### H IV12 #### [facility] [address] [place] [address] Dr. Jeronimo Melgar OPI Negative Normal NEGATIVE [facility] Comment on above: Performed By: #### H IV12 #### [facility] [address] [place] [address] Dr. Jeronimo Melgar OXY Negative Normal NEGATIVE [facility] Comment on above: Performed By: #### H IV12 #### [facility] [address] [place] [address] Dr. Jeronimo Melgar PCP Negative Normal NEGATIVE [facility] Comment on above: Performed By: #### H IV12 #### [facility] [address] [place] [address] Dr. Jeronimo Melgar PPX Negative Normal NEGATIVE [facility] Comment on above: Performed By: #### H IV12 #### [facility] [address] [place] [address] Dr. Jreonimo Melgar TCA Negative Normal NEGATIVE [facility] Comment on above: Performed By: #### H IV12 #### [facility] [address] [place] [address] Dr. Jeronimo Melgar THC Negative Normal NEGATIVE [facility] Comment on above: Performed By: #### H IV12 #### [facility] [address] [place] [address] Dr. Jeronimo Melgar GLYCOHEMOGLOBIN A1Con 2022 ADA RECOMMENDATION SEE BELOW Normal [facility] Comment on above: Result Comment: ADA RECOMMENDED LIMIT 4.0 - 6.0 ADA THERAPEUTIC TARGET < 7.0 ACTION SUGGESTED > 7.0 Performed By: #### A 1C #### [facility] [address] [place] [address] Dr. Jeronimo Melgar Glucose [Mass/Vol] 100 mg/dL Normal [facility] Comment on above: Performed By: #### A 1C #### [facility] [address] [place] [address] Dr. Jeronimo Melgar HbA1c (Bld) [Mass fraction] 5.1 % Normal 4.5-6.2 [facility] Comment on above: Performed By: #### A 1C #### [facility] [address] [place] [address] Dr. Jeronimo Melgar TYPE AND SCREENon 04-19-2022 TYPE AND SCREEN Negative Normal [facility] Comment on above: Performed By: #### B OX #### [facility] [address] [place] [address] Dr. Jeronimo Melgar CBC AUTO DIFFon 04-02-2022 BASO # 0.0 103/ul Normal 0.0-0.1 [facility] Comment on above: Performed By: #### C BC #### [facility] [address] [place] [address] Dr. Jeronimo Melgar Basophils/100 WBC (Bld) 0.3 % Normal 0.2-2.0 [facility] Comment on above: Performed By: #### C BC #### [facility] [address] [place] [address] Dr. Jeronimo Melgar EO # 0.0 103/ul Normal 0.0-0.7 [facility] Comment on above: Performed By: #### C BC #### [facility] [address] [place] [address] Dr. Jeronimo Melgar Eosinophils/100 WBC (Bld) 0.2 % Critically low 0.9-7.0 [facility] Comment on above: Performed By: #### C BC #### [facility] [address] [place] [address] Dr. Jeronimo Melgar Erythrocyte distribution width (RBC) [Ratio] 12.9 % Normal 11.0-15.0 [facility] Comment on above: Performed By: #### C BC #### [facility] [address] [place] [address] Dr. Jeronimo Melgar Hematocrit (Bld) [Volume fraction] 37.5 % Normal 36.0-48.0 [facility] Comment on above: Performed By: #### C BC #### [facility] [address] [place] [address] Dr. Jeronimo Melgar Hemoglobin (Bld) [Mass/Vol] 12.4 g/dL Normal 12.0-16.0 [facility] Comment on above: Performed By: #### C BC #### [facility] [address] [place] [address] Dr. Jeronimo Melgar IG # 0.05 10e3/ul Critically high 0.00-0.03 [facility] Comment on above: Performed By: #### C BC #### [facility] [address] [place] [address] Dr. Jeronimo Melgar IG % 0.3 % Normal 0.0-0.5 [facility] Comment on above: Performed By: #### C BC #### [facility] [address] [place] [address] Dr. Jeronimo Melgar LYMPH # 2.0 103/ul Normal 1.2-3.8 [facility] Comment on above: Performed By: #### C BC #### [facility] [address] [place] [address] Dr. Jeronimo Melgar Lymphocytes/100 WBC (Bld) 14.1 % Critically low 20.5-60.0 [facility] Comment on above: Performed By: #### C BC #### [facility] [address] [place] [address] Dr. Jeronimo Melgar MANUAL DIFF REQ NO Normal [facility] Comment on above: Performed By: #### C BC #### [facility] [address] [place] [address] Dr. Jeronimo Melgar MCH (RBC) [Entitic mass] 27.9 pg Normal 26.7-34.0 [facility] Comment on above: Performed By: #### C BC #### [facility] [address] [place] [address] Dr. Jeronimo Melgar MCHC (RBC) [Mass/Vol] 33.1 g/dL Normal 29.9-35.2 [facility] Comment on above: Performed By: #### C BC #### [facility] [address] [place] [address] Dr. Jeronimo Melgar MCV (RBC) [Entitic vol] 84.3 fL Normal 81.0-99.0 [facility] Comment on above: Performed By: #### C BC #### [facility] [address] [place] [address] Dr. Jeronimo Melgar MONO # 0.6 103/ul Normal 0.3-0.8 [facility] Comment on above: Performed By: #### C BC #### [facility] [address] [place] [address] Dr. Jeronimo Melgar Monocytes/100 WBC (Bld) 4.0 % Normal 1.7-12.0 [facility] Comment on above: Performed By: #### C BC #### [facility] [address] [place] [address] Dr. Jeronimo Melgar NEUT # 11.7 103/ul Critically high 1.4-6.5 [facility] Comment on above: Performed By: #### C BC #### [facility] [address] [place] [address] Dr. Jeronimo Melgar Neutrophils/100 WBC (Bld) 81.1 % Critically high 43.0-75.0 [facility] Comment on above: Performed By: #### C BC #### [facility] [address] [place] [address] Dr. Jeronimo Melgar Platelet mean volume (Bld) [Entitic vol] 10.2 fL Normal 9.5-13.5 [facility] Comment on above: Performed By: #### C BC #### [facility] [address] [place] [address] Dr. Jeronimo Melgar PLT 420 103/ul Normal 150-450 [facility] Comment on above: Performed By: #### C BC #### [facility] [address] [place] [address] Dr. Jeronimo Melgar RBC 4.45 106/ul Normal 4.20-5.40 [facility] Comment on above: Performed By: #### C BC #### [facility] [address] [place] [address] Dr. Jeronimo Melgar WBC 14.4 103/ul Critically high 4.0-11.0 [facility] Comment on above: Performed By: #### C BC #### [facility] [address] [place] [address] Dr. Jeronimo Melagr ER URINE PROFILEon 2 Bilirubin Ql (U) Negative Normal NEGATIVE [facility] Comment on above: Performed By: #### B OX #### [facility] [address] [place] [address] Dr. Jeronimo Melgar Clarity (U) CLEAR Normal CLEAR [facility] Comment on above: Performed By: #### B OX #### [facility] [address] [place] [address] Dr. Jeronimo Melgar Color (U) YELLOW Normal YELLOW [facility] Comment on above: Performed By: #### B OX #### [facility] [address] [place] [address] Dr. Jeronimo FLORES A micrscopic examination will be performed if indicated. Normal [facility] Comment on above: Performed By: #### B OX #### [facility] [address] [place] [address] Dr. Jeronimo Melgar Glucose Ql (U) Negative Normal NEGATIVE [facility] Comment on above: Performed By: #### B OX #### [facility] [address] [place] [address] Dr. Jeronimo Melgar Hemoglobin Ql (U) Negative Normal NEGATIVE [facility] Comment on above: Performed By: #### B OX #### [facility] [address] [place] [address] Dr. Jeronimo Melgar Ketones Ql (U) >=80 Abnormal NEGATIVE [facility] Comment on above: Performed By: #### B OX #### [facility] [address] [place] [address] Dr. Jeronimo Melgar LEUKOCYTES Negative Normal NEGATIVE [facility] Comment on above: Performed By: #### B OX #### [facility] [address] [place] [address] Dr. Jeronimo Melgar Nitrite Ql (U) Negative Normal NEGATIVE [facility] Comment on above: Performed By: #### B OX #### [facility] [address] [place] [address] Dr. Jeronimo Melgar pH (U) 7.0 [pH] Normal 5-9 [facility] Comment on above: Performed By: #### B OX #### [facility] [address] [place] [address] Dr. Jeronimo Melgar SPEC GRAVITY 1.020 Normal 1.005-<=1.025 [facility] Comment on above: Performed By: #### B OX #### [facility] [address] [place] [address] Dr. Jeronimo Melgar UA PROTEIN TRACE Normal NEGATIVE/ TRACE [facility] Comment on above: Performed By: #### B OX #### [facility] [address] [address] [address] Jeronimo Melgar UR MICRO IND NOT INDICATED Normal [facility] Comment on above: Performed By: #### B OX #### [facility] [address] [place] [address] Dr. Jeronimo Melgar Urobilinogen Qn (U) 1.0 {Pepito'U}/dL Normal 0.2 - 1. 0 [facility] Comment on above: Performed By: #### B OX #### [facility] [address] [address] [address] Jeronimo Melgar PROF CHEM 8 (BAS METB)on Anion gap [Moles/Vol] 12.7 mmol/L Normal [facility] Comment on above: Performed By: #### B MP #### [facility] [address] [place] [address] Dr. Jeronimo Melgar Calcium [Mass/Vol] 9.1 mg/dL Normal 8.5-10.1 [facility] Comment on above: Performed By: #### B MP #### [facility] [address] [place] [address] Dr. Jeronimo Melgar Chloride [Moles/Vol] 103 mmol/L Normal 98-107 [facility] Comment on above: Performed By: #### B MP #### [facility] [address] [place] [address] Dr. Jeronimo Melgar CO2 [Moles/Vol] 23.9 mmol/L Normal 21.0-32.0 [facility] Comment on above: Performed By: #### B MP #### [facility] [address] [place] [address] Dr. Jeronimo Melgar Creatinine [Mass/Vol] 0.78 mg/dL Normal 0.55-1.02 [facility] Comment on above: Performed By: #### B MP #### [facility] [address] [place] [address] Dr. Jeronimo Melgar EGFR-AF ZAMBIAN >60 Normal >=60 [facility] Comment on above: Performed By: #### B MP #### [facility] [address] [place] [address] Dr. Jeronimo Melgar EGFR-NON AF ZAMBIAN >60 Normal >=60 [facility] Comment on above: Performed By: #### B MP #### [facility] [address] [place] [address] Dr. Jeronimo Melgar Glucose [Mass/Vol] 155 mg/dL Critically high 74-106 [facility] Comment on above: Performed By: #### B MP #### [facility] [address] [address] [address] Jeronimo Melgar Potassium [Moles/Vol] 3.6 mmol/L Normal 3.5-5.1 [facility] Comment on above: Performed By: #### B MP #### [facility] [address] [address] [address] Jeronimo Melgar Sodium [Moles/Vol] 136 mmol/L Normal 136-145 [facility] Comment on above: Performed By: #### B MP #### [facility] [address] [address] [address] Jeronimo Melgar Urea nitrogen [Mass/Vol] 7.0 mg/dL Normal 7.0-18.0 [facility] Comment on above: Performed By: #### B MP #### [facility] [address] [address] [address] Jeronimo Melgar Urea nitrogen/Creatinine [Mass ratio] 9.0 mg/mg Normal [facility] Comment on above: Performed By: #### B MP #### [facility] [address] [address] [address] Jeronimo Melgar US PREG TVon 03-28-2022 US PREG TV EXAMINATION: US PREG TV HISTORY: Missed period COMPARISON: No relevant comparison available. FINDINGS: GESTATIONAL SAC: Present and normal appearing. YOLK SAC: Present and normal appearing. POLE: Present. CARDIAC: Present. UTERUS: Normal size and appearance. OVARIES: Right: Normal. Left: Not seen. CERVIX: 3.5 cm in length and closed. CUL-DE-SAC: Normal. OTHER: None. AGE BY LMP: 7 weeks 3 days MONIQUE BY LMP: 11/11/2022 AGE BY US CRL: 7 weeks 0 days MONIQUE BY US CRL: 11/14/2022 IMPRESSION: 1. Single live intrauterine . Follow-up recommended. Electronically authenticated by: ANGELA SCOTT Date: 2022-03-28 16:32 Normal [facility] US PELVIS AND TRANSVAGon US PELVIS AND TRANSVAG EXAMINATION: US PELVIS AND TRANSVAG HISTORY: Pelvic and perineal pain COMPARISON: No relevant comparison available. FINDINGS: Transabdominal and transvaginal images The uterus is normal in size, contour and echotexture measuring 6.1 x 3.2 x 4.1 cm. No focal myometrial mass. The uterus is retroverted, retroflexed The right ovary is normal in appearance measuring 3.1 x 1.6 x 2.4 cm. Normal color flow. The left ovary is normal in appearance measuring 3.6 x 2.8 x 3.1 cm. Normal color flow. IMPRESSION: Normal exam Electronically authenticated by: CHRISTIAN KATE Date: 2021-10-17 16:35 Normal [facility] CHLAMYDIA/GONOCOCCUS MILY (SW AB/URINE/PAPon 10-14-2021 Chlamydia trachomatis, MILY Positive Abnormal Negative [facility] Comment on above: Result Comment: . Performed By: #### C T/NGNA #### [facility] [address] [place] [address] Dr. Jeronimo Melgar Neisseria gonorrhoeae, MILY Negative Normal Negative [facility] Comment on above: Performed By: #### C T/NGNA #### [facility] [address] [place] [address] Dr. Jeronimo Melgar VAGINITIS/VAGINOSIS DNA PROB Obed 10-13-2021 Lesa species Negative Normal Negative [facility] Comment on above: Performed By: #### V AGINT #### [facility] [address] [place] [address] Dr. Jeronimo Melgar Gardnerella vaginalis Negative Normal Negative [facility] Comment on above: Performed By: #### V AGINT #### [facility] [address] [place] [address] Dr. Jeronimo Meglar Trichomonas vaginalis Negative Normal Negative [facility] Comment on above: Performed By: #### V AGINT #### [facility] [address] [place] [address] Dr. Jeronimo Melgar XR foot LT min 3V*on 022 XR foot LT min 3V* [facility] [place] [address] [place] [address] XRay Report Signed Patient: Lia Desai MR#: [id number] : 2000 Acct:[id number] Age/Sex: 20 / F ADM Date: 07/18/21 Loc: ER Room: Type: [facility] ER Attending Dr: Ordering Provider: Oneil Ricci APRN Date of Service: 07/18/21 XR/XR foot LT min 3V*: Extremity Injury, Lower ([id number]) XR/XR ankle LT min 3V*: Extremity Injury, Lower Copies to: Oneil Ricci APRN Left ankle and left foot 07/18/2021. CLINICAL DATA: Left ankle and left foot pain after fall down stairs. LEFT ANKLE FINDINGS: 3 views of the left ankle were obtained. No acute fracture or dislocation is identified. No other bony abnormality is seen. No significant soft tissue swelling is noted. LEFT FOOT FINDINGS: 3 views of the left foot were obtained. No acute fracture or dislocation is identified. No other bony abnormality is seen. No significant soft tissue swelling is noted. XR/XR ankle LT min 3V* IMPRESSION: No acute bony abnormality. Impression dictated by: Bijan Brewer Jr., M.D.07/18/2021 6:15 PM Dictation Location: [place] [address] Transcribed By: [facility] 07/18/211814 Dictated By: Bijan Brewer Jr, MD 07/18/211812 Signed By: 07/18/211814 Normal [facility] XR knee RT 4V*on 05-15-2021 XR knee RT 4V* [facility] [place] [address] XRay Report Signed Patient: Lia Desai MR#: [id number] : 2000 Acct:[id number] Age/Sex: 20 / F ADM Date: 05/15/21 Loc: ER Room: Type: [facility] ER Attending Dr: Ordering Provider: Yovani Valle PA-C Date of Service: 05/15/21 XR/XR knee RT 4V*: Extremity Injury, Lower Copies to: Yovani Valle PA-C XR knee RT 4V* 05/15/2021 7:20 PM SIGNS AND SYMPTOMS: Fall onto ice injuring right knee with pain and swelling anteriorly PROTOCOL: Frontal, lateral, and oblique radiographs of the right knee COMPARISON: None FINDINGS: The weightbearing and patellofemoral joint spaces are preserved. There is no evidence of displaced fracture. No significant soft tissue swelling. No joint effusion. XR/XR knee RT 4V* IMPRESSION: No acute bony injury. Impression dictated by: Ana Juan M.D.05/15/2021 8:11 PM Dictation Location: [place] [address] Transcribed By: CYNDEE 05/15/212010 Dictated By: Ana Juan II, MD 05/15/212008 Signed By: 05/15/212010 Normal [facility] Vital Signs Date Time Vital Sign Value Performing Clinician Faci lity 07-18-2021 16:56-0400 Body height 167.64 cm [facility] 07-18-2021 16:56-0400 Body mass index (BMI) [Percentile] Per age and sex 98.9 % [facility] 07-18-2021 16:56-0400 Body mass index (BMI) [Ratio] 44.3 kg/m2 [facility] 07-18-2021 16:56-0400 Body temperature 98.3 [degF] [facility] 07-18-2021 16:56-0400 Body weight 124.6 kg [facility] 07-18-2021 16:56-0400 Diastolic blood pressure 108 mm[Hg] [facility] 07-18-2021 16:56-0400 Heart rate 80 /min [facility] 07-18-2021 16:56-0400 Respiratory rate 18 /min [facility] 07-18-2021 16:56-0400 Systolic blood pressure 162 mm[Hg] [facility] 05-15-2021 19:47-0500 Body height 167.64 cm [facility] 05-15-2021 19:47-0500 Body mass index (BMI) [Percentile] Per age and sex 98.9 % [facility] 05-15-2021 19:47-0500 Body mass index (BMI) [Ratio] 43.7 kg/m2 [facility] 05-15-2021 19:47-0500 Body temperature 98.8 [degF] [facility] 05-15-2021 19:47-0500 Body weight 122.95 kg [facility] 05-15-2021 19:47-0500 Diastolic blood pressure 65 mm[Hg] [facility] 05-15-2021 19:47-0500 Heart rate 75 /min [facility] 05-15-2021 19:47-0500 Respiratory rate 16 /min [facility] 05-15-2021 19:47-0500 SaO2% (BldA) [Mass fraction] 100 % [facility] 05-15-2021 19:47-0500 Systolic blood pressure 144 mm[Hg] [facility] Encounters Encounter Date Encounter Type Care Provider Facility Start: 05-26-2023 End: 05-26-2023 Emergency department patient visit [facility] Facility:[facility] Start: 05-17-2023 Clinisync Result Encounter Robert Janes DO Work Phone: [facility] External [facility] Unsolicited Start: 05-17-2023 Clinisync Result Encounter Robert Janes DO Work Phone: [facility] External Department Unsolicited Start: 05-15-2023 End: 05-15-2023 Emergency department patient visit Mamie Moore Facility:[facility] Start: 05-14-2023 Chart abstracting Robert Janes DO Work Phone: [facility] Start: 05-07-2023 Documentation procedure Leah Hernandez RN [facility] Certified Nurse [facility] [place] Start: 05-02-2023 End: 05-02-2023 ambulatory Not Available Start: 04-19-2023 Telephone encounter Leah Hernandez RN [facility] Certified Nurse [facility] [place] Start: 04-17-2023 Telephone encounter Leah Hernandez RN [facility] Certified Nurse [facility] [place] Start: 04-15-2023 End: 04-15-2023 Emergency department patient visit Yassine [facility] Facility:[facility] Start: 04-12-2023 End: 04-12-2023 ambulatory Oneil MILLS Facility:[facility] Start: 04-05-2023 Orders Only Leah Hernandez RN [facility] Certified Nurse Test [facility] - [facility] Mckeon Comment on above: Nausea and vomiting during (Primary Dx) Start: 03-01-2023 End: 03-01-2023 Emergency department patient visit Tom Smith Facility:[facility] Start: 02-26-2023 End: 02-26-2023 ambulatory Errol Martin PAC Facility:[facility] Start: 02-14-2023 End: 02-14-2023 ambulatory DORA BUCKLEY PA Facility:[facility] Start: 11-15-2022 End: 11-15-2022 Emergency department patient visit None Provider Facility:[facility] Start: 08-25-2022 End: 08-26-2022 ambulatory Alaina Matta CNM Facility:[facility] Start: 08-11-2022 End: 08-11-2022 Emergency department patient visit Adamaris Jaeger PA-C Facility:[facility] Start: 08-08-2022 End: 08-09-[address] BALDOMERO ELLER . Facility[facility] Start: 06-12-2022 End: 06-12-2022 ambulatory None Provider Facility:[facility] Start: 06-02-2022 End: 06-03-[address] BALDOMERO ELLER . Facility:[facility] Start: 05-18-2022 Encounter for other preprocedural examination DR BALDOMERO ELLER . [facility] Start: 05-17-2022 End: 05-17-[address] BALDOMERO ELLER . Facility:[facility] Start: 05-16-2022 End: 05-17-[address] BALDOMERO ELLER . Facility:[facility] Start: 05-16-2022 End: 05-17-2022 Encounter for other preprocedural examination DR BALDOMERO ELLER . Facility:[facility] Start: 05-16-2022 End: 05-17-[address] BALDOMERO ELLER . Facility:[facility] Start: 04-19-2022 End: 04-20-[address] BALDOMERO ELLER . Facility:[facility] Start: 04-02-2022 End: 04-03-[address] ANA LEDESMA Facility:[facility] Start: 03-29-2022 ambulatory [facility] Facility:[facility] Start: 03-28-2022 End: 03-29-[address] BALDOMERO ELLER . Facility:[facility] Start: 10-17-2021 End: 10-18-[address] BALDOMERO ELLER . Facility:[facility] Start: 10-12-2021 End: 10-12-[address] BALDOMERO ELLER . Facility:[facility] Start: 07-18-2021 End: 07-18-2021 Emergency department patient visit [facility] Start: 05-15-2021 End: 05-15-2021 Emergency department patient visit [facility] Procedures Date Procedure Procedure Detail Performing Clinician Start: 05-17-2023 ALL CBC WITH AUTO DIFF Robert Marrero DO Work Phone: Start: 05-15-2021 X-ray of right knee Plan of Treatment Date Care Activity Detail Author Start: 05-15-2028 DTaP,Tdap and Td Vaccines (2 - Td or Tdap) DTaP,Tdap and Td Vaccines (2 - Td or Tdap) [facility] Start: 03-05-2024 Adult BMI Screening Adult BMI Screen ing [facility] Start: 03-05-2024 Tobacco Screening Tobacco Screening [facility] Start: 09-26-2023 Screening for Chlamy driss trachomatis Chlamydia Screening [facility] Start: 06-03-2023 End: 06-03-2023 Patient encounter procedure 06/03/2023 2:10 PM EST Routine [facility] [address] [place] [id number] Robert Marrero, DO [address] [place] [address] [facility] Start: 04-17-2023 End: 04-17-2023 ambulatory 04/17/2023 8:30 AM EST Initial [facility] Certified Nurse Test [facility] - [address] [id number] [facility] Certified [facility] [place] Start: 12-07-2022 Influenza vaccination Influenza Vacc ine [facility] Start: 2022 Screening for malign ant neoplasm of cervix Pap Smear [facility] Start: 07-18-2021 X-ray of left ankle XR ankle LT min 3V* [facility] Start: 07-18-2021 X-ray of left foot XR foot LT min 3V * [facility] Start: 10-08-2019 Adult BMI Follow Up Plan Adult BMI Follow Up Plan [facility] Start: 2013 Depression Screening Depression Scre ening [facility] Patient Education [facility] Work Phone: Patient referral [facility] Work Phone: Payers Date Payer Category Payer Medicaid [id number] 2001 Unknown [id number] 2.16.84 0.1.740392.3.579.2.593 2001 Unknown [id number] 2.16.84 0.1.075155.3.579.2.593 2001 Unknown [id number] 2.16.84 0.1.102893.3.579.2.593 2001 Unknown [id number] 2.16.84 0.1.255240.3.579.2.593 2001 Unknown [id number] 2.16.84 0.1.593915.3.579.2.593 2001 Unknown [id number] 2.16.84 0.1.164321.3.579.2.593 2001 Unknown [id number] 2.16.84 0.1.187475.3.579.2.593 2001 Unknown [id number] 2.16.84 0.1.214665.3.579.2.593 2001 Unknown [id number] 2.16.84 0.1.613347.3.579.2.593 2001 Unknown [id number] 2.16.84 0.1.211822.3.579.2.593 2001 Unknown [id number] 2.16.84 0.1.379307.3.579.2.593 2001 Unknown [id number] 2.16.84 0.1.205562.3.579.2.1259 2001 Unknown [id number] 2.16.8 40.1.117332.3.579.2.718 2001 Unknown [id number] 2.16.8 40.1.804783.3.579.2.8 2001 Unknown [id number] 2.16.8 40.1.821074.3.579.2.718 2001 Unknown [id number] 2.16.8 40.1.551969.3.579.2.718 2001 Unknown [id number] 2.16.8 40.1.573535.3.579.2.8 2001 Unknown [id number] 2.16.8 40.1.648645.3.579.2.8 2001 Unknown [id number] 2.16.8 40.1.832733.3.579.2.718 2001 Unknown [id number] 2.16.8 40.1.391191.3.579.2.718 2001 Unknown [id number] 2.16.8 40.1.488760.3.579.2.718 2001 Unknown [id number] 2.16.8 40.1.743122.3.579.2.8 2001 Unknown [id number] 2.16.8 40.1.364163.3.579.2.718 1959 Unknown [id number] Self-pay Self Pay [id number] Social History Date Type Detail Facility Start: 07-18-2021 End: 05-14-2023 Tobacco smoking status NHIS Never smoked tobacco (finding) [facility] Start: 2000 Sex Assigned At Female [facility] History of tobacco use Passive smoker [facility] Start: 08-01-2022 Tobacco use and exposure Smokeless tobacco non-user [facility] Start: 03-05-2023 Alcohol intake Ex-drinker (finding) [facility] Start: 03-05-2023 End: 05-14-2023 History of Social function [facility] Start: 03-05-2023 End: 05-14-2023 Tobacco use panel [facility] Housing Instability Unknown [facility] Start: 08-14-2022 Alcohol Comment social [facility] Start: 2000 Sex Assigned At Not on file [facility] Start: 05-14-2023 Alcohol intake Lifetime non-drinker (finding) [facility] Start: 03-20-2023 [facility] Start: 05-01-2023 Gender identity Identifies as female gender (finding) [facility] Start: 05-01-2023 Sexual orientation Heterosexual (finding) [facility] Clinical Notes 06-12-2022 to 05-26-2023 Leah Hernandez RN - 05/07/2023 10:51 AM ESTTelephone Encounter - Leah Hernandez RN - 04/19/2023 3:28 PM ESTTelephone Encounter - Leah Hernandez RN - 04/19/2023 3:28 PM EST Note Date & Type Note Facility 05-26-2023 Note Education Materials Cardiovascular Hypertension, Adult Blood pressure 123/71 Your blood pressure was noted to be elevated here in the emergency room. Monitor your blood pressure and follow-up with your primary care physician to review those readings. Return to the emergency department for any worsening symptoms. Hypertension is another name for high blood pressure. High blood pressure forces your heart to work harder to pump blood. This can cause problems over time. There are two numbers in a blood pressure reading. There is a top number (systolic) over a bottom number (diastolic). It is best to have a blood pressure that is below 120/80. What are the causes? The cause of this condition is not known. Some other conditions can lead to high blood pressure. What increases the risk? Some lifestyle factors can make you more likely to develop high blood pressure: ? Smoking. ? Not getting enough exercise or physical activity. ? Being overweight. ? Having too much fat, sugar, calories, or salt (sodium) in your diet. ? Drinking too much alcohol. Other risk factors include: ? Having any of these conditions: ? Heart disease. ? Diabetes. ? High cholesterol. ? Kidney disease. ? Obstructive sleep apnea. ? Having a family history of high blood pressure and high cholesterol. ? Age. The risk increases with age. ? Stress. What are the signs or symptoms? High blood pressure may not cause symptoms. Very high blood pressure (hypertensive crisis) may cause: ? Headache. ? Fast or uneven heartbeats (palpitations). ? Shortness of breath. ? Nosebleed. ? Vomiting or feeling like you may vomit (nauseous). ? Changes in how you see. ? Very bad chest pain. ? Feeling dizzy. ? Seizures. How is this treated? ? This condition is treated by making healthy lifestyle changes, such as: ? Eating healthy foods. ? Exercising more. ? Drinking less alcohol. ? Your doctor may prescribe medicine if lifestyle changes do not help enough and if: ? Your top number is above 130. ? Your bottom number is above 80. ? Your personal target blood pressure may vary. Follow these instructions at home: Eating and drinking ? If told, follow the DASH eating plan. To follow this plan: ? Fill one half of your plate at each meal with fruits and vegetables. ? Fill one fourth of your plate at each meal with whole grains. Whole grains include whole-wheat pasta, brown rice, and whole-grain bread. ? Eat or drink low-fat dairy products, such as skim milk or low-fat yogurt. ? Fill one fourth of your plate at each meal with low-fat (lean) proteins. Low-fat proteins include fish, chicken without skin, eggs, beans, and tofu. ? Avoid fatty meat, cured and processed meat, or chicken with skin. ? Avoid pre-made or processed food. ? Limit the amount of salt in your diet to less than 1,500 mg each day. ? Do not drink alcohol if: ? Your doctor tells you not to drink. ? You are , may be , or are planning to become . ? If you drink alcohol: ? Limit how much you have to: ? 0?1 drink a day for women. ? 0?2 drinks a day for men. ? Know how much alcohol is in your drink. In the [place] one drink equals one 12 oz bottle of beer (355 mL), one 5 oz glass of wine (148 mL), or one 1? oz glass of hard liquor (44 mL). Lifestyle ? Work with your doctor to stay at a healthy weight or to lose weight. Ask your doctor what the best weight is for you. ? Get at least 30 minutes of exercise that causes your heart to beat faster (aerobic exercise) most days of the week. This may include walking, swimming, or biking. ? Get at least 30 minutes of exercise that strengthens your muscles (resistance exercise) at least 3 days a week. This may include lifting weights or doing Pilates. ? Do not smoke or use any products that contain nicotine or tobacco. If you need help quitting, ask your doctor. ? Check your blood pressure at home as told by your doctor. ? Keep all follow-up visits. Medicines ? Take [id number] and prescription medicines only as told by your doctor. Follow directions carefully. ? Do not skip doses of blood pressure medicine. The medicine does not work as well if you skip doses. Skipping doses also puts you at risk for problems. ? Ask your doctor about side effects or reactions to medicines that you should watch for. Contact a doctor if: ? You think you are having a reaction to the medicine you are taking. ? You have headaches that keep coming back. ? You feel dizzy. ? You have swelling in your ankles. ? You have trouble with your vision. Get help right away if: ? You get a very bad headache. ? You start to feel mixed up (confused). ? You feel weak or numb. ? You feel faint. ? You have very bad pain in your: ? Chest. ? Belly (abdomen). ? You vomit more than once. ? You have trouble breathing. These symptoms may be an em (more content not included)... [facility] 05-15-2023 Note Education Materials Obstetrics and Gynecology Hyperemesis Gravidarum Hyperemesis gravidarum is a severe form of nausea and vomiting that happens during . Hyperemesis is worse than morning sickness. It may cause you to have nausea or vomiting all day for many days. It may keep you from eating and drinking enough food and liquids, which can lead to dehydration, malnutrition, and weight loss. Hyperemesis usually occurs during the first half (the first 20 weeks) of . It often goes away once a woman is in her second half of . However, sometimes hyperemesis continues through an entire . What are the causes? The cause of this condition is not known. It may be associated with: ? Changes in hormones in the body during . ? Changes in the gastrointestinal system. ? Genetic or inherited conditions. What are the signs or symptoms? Symptoms of this condition include: ? Severe nausea and vomiting that does not go away. ? Problems keeping food down. ? Weight loss. ? Loss of body fluid (dehydration). ? Loss of appetite. You may have no desire to eat or you may not like the food you have previously enjoyed. How is this diagnosed? This condition may be diagnosed based on your medical history, your symptoms, and a physical exam. You may also have other tests, including: ? Blood tests. ? Urine tests. ? Blood pressure tests. ? Ultrasound to look for problems with the placenta or to check if you are with more than one baby. How is this treated? This condition is managed by controlling symptoms. This may include: ? Following an eating plan. This can help to lessen nausea and vomiting. ? Treatments that do not use medicine. These include acupressure bracelets, hypnosis, and eating or drinking foods or fluids that contain uri, uri prabhakar, or uri tea. ? Taking prescription medicine or [id number] medicine as told by your health care provider. ? Continuing to take vitamins. You may need to change what kind you take and when you take them. Follow your health care provider's instructions about vitamins. An eating plan and medicines are often used together to help control symptoms. If medicines do not help relieve nausea and vomiting, you may need to receive fluids through an IV at the hospital. Follow these instructions at home: To help relieve your symptoms, listen to your body. Everyone is different and has different preferences. Find what works best for you. Here are some things you can try to help relieve your symptoms: Meals and snacks ? Eat 5?6 small meals daily instead of 3 large meals. Eating small meals and snacks can help you avoid an empty stomach. ? Before getting out of bed, eat a couple of crackers to avoid moving around on an empty stomach. ? Eat a protein-rich snack before bed. Examples include cheese and crackers, or a peanut butter sandwich made with 1 slice of whole-wheat bread and 1 tsp (5 g) of peanut butter. ? Eat and drink slowly. ? Try eating starchy foods as these are usually tolerated well. Examples include cereal, toast, bread, potatoes, pasta, rice, and pretzels. ? Eat at least one serving of protein with your meals and snacks. Protein options include lean meats, poultry, seafood, beans, nuts, nut butters, eggs, cheese, and yogurt. ? Eat or suck on things that have uri in them. It may help to relieve nausea. Add ? tsp (0.44 g) ground uri to hot tea, or choose uri tea. Fluids It is important to stay hydrated. Try to: ? Drink small amounts of fluids often. ? Drink fluids 30 minutes before or after a meal to help lessen the feeling of a full stomach. ? Drink 100% fruit juice or an electrolyte drink. An electrolyte drink contains sodium, potassium, and chloride. ? Drink fluids that are cold, clear, and carbonated or sour. These include lemonade, uri prabhakar, lemon?inupiat soda, ice water, and sparkling water. Things to avoid Avoid the following: ? Eating foods that trigger your symptoms. These may include spicy foods, coffee, high-fat foods, very sweet foods, and acidic foods. ? Drinking more than 1 cup of fluid at a time. ? Skipping meals. Nausea can be more intense on an empty stomach. If you cannot tolerate food, do not force it. Try sucking on ice chips or other frozen items and make up for missed calories later. ? Lying down within 2 hours after eating. ? Being exposed to environmental triggers. These may include food smells, smoky rooms, closed spaces, rooms with strong smells, warm or humid places, overly loud and noisy rooms, and rooms with motion or flickering lights. Try eating meals in a well-ventilated area that is free of strong smells. ? Making quick and sudden changes in your movement. ? Taking iron pills and multivitamins that contain iron. If you take prescription iron pills, do not stop taking them unless your health care provider approves. ? Preparing food. The s (more content not included)... [facility] 05-07-2023 History of Presen t illness Narrative Letter sent to patient via [facility] and also to her My Chart regarding her missed OB intake appointment and also her MICHAEL for her Chlamydia. documented in this encounter [facility] 04-19-2023 Miscellaneous Notes Called patient to reschedule her IOB intake visit. No answer. Left message to call office to reschedule her appointment. documented in this encounter [facility] 04-19-2023 Telephone encounter Note Called patient to reschedule her IOB intake visit. No answer. Left message to call office to reschedule her appointment. [facility] 04-17-2023 Miscellaneous Notes Patient called for her OB intake per phone. No answer. Left message to call office. documented in this encounter [facility] 04-17-2023 Telephone encounter Note Patient called for her OB intake per phone. No answer. Left message to call office. [facility] 04-15-2023 Note Education Materials Gastroenterology Nausea and Vomiting, Adult Nausea is feeling that you have an upset stomach and that you are about to vomit. Vomiting is when food in your stomach forcefully comes out of your mouth. Vomiting can make you feel weak. If you vomit, or if you are not able to drink enough fluids, you may not have enough water in your body (get dehydrated). If you do not have enough water in your body, you may: ? Feel tired. ? Feel thirsty. ? Have a dry mouth. ? Have cracked lips. ? Pee (urinate) less often. Older adults and people with other diseases or a weak body defense system (immune system) are at higher risk for not having enough water in the body. If you feel like you may vomit or you vomit, it is important to follow instructions from your doctor about how to take care of yourself. Follow these instructions at home: Watch your symptoms for any changes. Tell your doctor about them. Eating and drinking ? Take an ORS (oral rehydration solution). This is a drink that is sold at pharmacies and stores. ? Drink clear fluids in small amounts as you are able, such as: ? Water. ? Ice chips. ? Fruit juice that has water added (diluted fruit juice). ? Low-calorie sports drinks. ? Eat bland, lxzq-vl-wrqvzs foods in small amounts as you are able, such as: ? Bananas. ? Applesauce. ? Rice. ? Low-fat (lean) meats. ? [place]. ? Crackers. ? Avoid drinking fluids that have a lot of sugar or caffeine in them. This includes energy drinks, sports drinks, and soda. ? Avoid alcohol. ? Avoid spicy or fatty foods. General instructions ? Take acme-qyl-grrbqee and prescription medicines only as told by your doctor. ? Drink enough fluid to keep your pee (urine) pale yellow. ? Wash your hands often with soap and water for at least 20 seconds. If you cannot use soap and water, use hand blueprint clerk. ? Make sure that everyone in your home washes their hands well and often. ? Rest at home until you feel better. ? Watch your condition for any changes. ? Take slow and deep breaths when you feel like you may vomit. ? Keep all follow-up visits. Contact a doctor if: ? Your symptoms get worse. ? You have new symptoms. ? You have a fever. ? You cannot drink fluids without vomiting. ? You feel like you may vomit for more than 2 days. ? You feel light-headed or dizzy. ? You have a headache. ? You have muscle cramps. ? You have a rash. ? You have pain while peeing. Get help right away if: ? You have pain in your chest, neck, arm, or jaw. ? You feel very weak or you faint. ? You vomit again and again. ? You have vomit that is bright red or looks like black coffee grounds. ? You have bloody or black poop (stools) or poop that looks like tar. ? You have a very bad headache, a stiff neck, or both. ? You have very bad pain, cramping, or bloating in your belly (abdomen). ? You have trouble breathing. ? You are breathing very quickly. ? Your heart is beating very quickly. ? Your skin feels cold and clammy. ? You feel confused. ? You have signs of losing too much water in your body, such as: ? Dark pee, very little pee, or no pee. ? Cracked lips. ? Dry mouth. ? Sunken eyes. ? Sleepiness. ? Weakness. These symptoms may be an emergency. Get help right away. Call 911. ? Do not wait to see if the symptoms will go away. ? Do not drive yourself to the hospital. Summary ? Nausea is feeling that you have an upset stomach and that you are about to vomit. Vomiting is when food in your stomach comes out of your mouth. ? Follow instructions from your doctor about eating and drinking. ? Take orwl-fsn-saqphth and prescription medicines only as told by your doctor. ? Contact your doctor if your symptoms get worse or you have new symptoms. ? Keep all follow-up visits. This information is not intended to replace advice given to you by your health care provider. Make sure you discuss any questions you have with your health care provider. Document Revised: 09/29/2021 Document Reviewed: 09/29/2021 Else[employer] Patient Education ? 2022 [employer]. [facility] 04-12-2023 Note Patient Education Ma terials Follows:and Gynecology Morning Sickness Morning sickness is when a woman feels nauseous during . This nauseous feeling may or may not come with vomiting. It often occurs in the morning, but it can be a problem at any time of day. Morning sickness is most common during the first trimester. In some cases, it may continue throughout . Although morning sickness is unpleasant, it is usually harmless unless the woman develops severe and continual vomiting (hyperemesis gravidarum), a condition that requires more intense treatment. What are the causes? The exact cause of this condition is not known, but it seems to be related to normal hormonal changes that occur in . What increases the risk? You are more likely to develop this condition if: ? You experienced nausea or vomiting before your . ? You had morning sickness during a previous . ? You are with more than one baby, such as twins. What are the signs or symptoms? Symptoms of this condition include: ? Nausea. ? Vomiting. How is this diagnosed? This condition is usually diagnosed based on your signs and symptoms. How is this treated? In many cases, treatment is not needed for this condition. Making some changes to what you eat may help to control symptoms. Your health care provider may also prescribe or recommend: ? Vitamin B6 supplements. ? Anti-nausea medicines. ? Uri. Follow these instructions at home: Medicines ? Take coye-eua-lrrmgwv and prescription medicines only as told by your health care provider. Do not use any prescription, eacw-nhz-gdaopnp, or herbal medicines for morning sickness without first talking with your health care provider. ? Take multivitamins before getting . This can prevent or decrease the severity of morning sickness in most women. Eating and drinking ? Eat a piece of dry toast or crackers before getting out of bed in the morning. ? Eat 5 or 6 small meals a day. ? Eat dry and bland foods, such as rice or a baked potato. Foods that are high in carbohydrates are often helpful. ? Avoid greasy, fatty, and spicy foods. ? Have someone cook for you if the smell of any food causes nausea and vomiting. ? If you feel nauseous after taking vitamins, take the vitamins at night or with a snack. ? Eat a protein snack between meals if you are hungry. Nuts, yogurt, and cheese are good options. ? Drink fluids throughout the day. ? Try uri prabhakar made with real uri, uri tea made from fresh grated uri, or uri candies. General instructions ? Do not use any products that contain nicotine or tobacco. These products include cigarettes, chewing tobacco, and vaping devices, such as e-cigarettes. If you need help quitting, ask your health care provider. ? Get an air purifier to keep the air in your house free of odors. ? Get plenty of fresh air. ? Try to avoid odors that trigger your nausea. ? Consider trying these methods to help relieve symptoms: ? Wearing an acupressure wristband. These wristbands are often worn for seasickness. ? Acupuncture. Contact a health care provider if: ? Your home remedies are not working and you need medicine. ? You feel dizzy or light-headed. ? You are losing weight. Get help right away if: ? You have persistent and uncontrolled nausea and vomiting. ? You faint. ? You have severe pain in your abdomen. Summary ? Morning sickness is when a woman feels nauseous during . This nauseous feeling may or may not come with vomiting. ? Morning sickness is most common during the first trimester. ? It often occurs in the morning, but it can be a problem at any time of day. ? In many cases, treatment is not needed for this condition. Making some changes to what you eat may help to control symptoms. This information is not intended to replace advice given to you by your health care provider. Make sure you discuss any questions you have with your health care provider. Document Revised: 11/07/2020 Document Reviewed: 10/17/2020 [employer] Patient Education ? 2022 [employer]. [facility] 03-01-2023 Note Education Materials Pulmonary Medicine Acute Bronchitis, Adult Acute bronchitis is sudden inflammation of the main airways (bronchi) that come off the windpipe (trachea) in the lungs. The swelling causes the airways to get smaller and make more mucus than normal. This can make it hard to breathe and can cause coughing or noisy breathing (wheezing). Acute bronchitis may last several weeks. The cough may last longer. Allergies, asthma, and exposure to smoke may make the condition worse. What are the causes? This condition can be caused by germs and by substances that irritate the lungs, including: ? Cold and flu viruses. The most common cause of this condition is the virus that causes the common cold. ? Bacteria. This is less common. ? Breathing in substances that irritate the lungs, including: ? Smoke from cigarettes and other forms of tobacco. ? Dust and pollen. ? Fumes from household cleaning products, gases, or burned fuel. ? Indoor or outdoor air pollution. What increases the risk? The following factors may make you more likely to develop this condition: ? A weak body's defense system, also called the immune system. ? A condition that affects your lungs and breathing, such as asthma. What are the signs or symptoms? Common symptoms of this condition include: ? Coughing. This may bring up clear, yellow, or green mucus from your lungs (sputum). ? Wheezing. ? Runny or stuffy nose. ? Having too much mucus in your lungs (chest congestion). ? Shortness of breath. ? Aches and pains, including sore throat or chest. How is this diagnosed? This condition is usually diagnosed based on: ? Your symptoms and medical history. ? A physical exam. You may also have other tests, including tests to rule out other conditions, such as pneumonia. These tests include: ? A test of lung function. ? Test of a mucus sample to look for the presence of bacteria. ? Tests to check the oxygen level in your blood. ? Blood tests. ? Chest X-ray. How is this treated? Most cases of acute bronchitis clear up over time without treatment. Your health care provider may recommend: ? Drinking more fluids to help thin your mucus so it is easier to cough up. ? Taking inhaled medicine (inhaler) to improve air flow in and out of your lungs. ? Using a vaporizer or a humidifier. These are machines that add water to the air to help you breathe better. ? Taking a medicine that thins mucus and clears congestion (expectorant). ? Taking a medicine that prevents or stops coughing (cough suppressant). It is notcommon to take an antibiotic medicine for this condition. Follow these instructions at home: ? Take ikcg-wbs-poppgux and prescription medicines only as told by your health care provider. ? Use an inhaler, vaporizer, or humidifier as told by your health care provider. ? Take two teaspoons (10 mL) of honey at bedtime to lessen coughing at night. ? Drink enough fluid to keep your urine pale yellow. ? Do not use any products that contain nicotine or tobacco. These products include cigarettes, chewing tobacco, and vaping devices, such as e-cigarettes. If you need help quitting, ask your health care provider. ? Get plenty of rest. ? Return to your normal activities as told by your health care provider. Ask your health care provider what activities are safe for you. ? Keep all follow-up visits. This is important. How is this prevented? To lower your risk of getting this condition again: ? Wash your hands often with soap and water for at least 20 seconds. If soap and water are not available, use hand blueprint clerk. ? Avoid contact with people who have cold symptoms. ? Try not to touch your mouth, nose, or eyes with your hands. ? Avoid breathing in smoke or chemical fumes. Breathing smoke or chemical fumes will make your condition worse. ? Get the flu shot every year. Contact a health care provider if: ? Your symptoms do not improve after 2 weeks. ? You have trouble coughing up the mucus. ? Your cough keeps you awake at night. ? You have a fever. Get help right away if you: ? Cough up blood. ? Feel pain in your chest. ? Have severe shortness of breath. ? Faint or keep feeling like you are going to faint. ? Have a severe headache. ? Have a fever or chills that get worse. These symptoms may represent a serious problem that is an emergency. Do not wait to see if the symptoms will go away. Get medical help right away. Call your local emergency services (911 in the [place] Do not drive yourself to the hospital. Summary ? Acute bronchitis is inflammation of the main airways (bronchi) that come off the windpipe (trachea) in the lungs. The swelling causes the airways to get smaller and make more mucus than normal. ? Drinking more fluids can help thin your mucus so it is easier to cough up. ? Take vvni-wbt-ppubuvg an (more content not included)... [facility] 02-26-2023 Note Patient Education Ma terials Follows:Disease Upper Respiratory Infection, Adult An upper respiratory infection (URI) is a common viral infection of the nose, throat, and upper air passages that lead to the lungs. The most common type of URI is the common cold. URIs usually get better on their own, without medical treatment. What are the causes? A URI is caused by a virus. You may catch a virus by: ? Breathing in droplets from an infected person's cough or sneeze. ? Touching something that has been exposed to the virus (is contaminated) and then touching your mouth, nose, or eyes. What increases the risk? You are more likely to get a URI if: ? You are very young or very old. ? You have close contact with others, such as at work, school, or a health care facility. ? You smoke. ? You have long-term (chronic) heart or lung disease. ? You have a weakened disease-fighting system (immune system). ? You have nasal allergies or asthma. ? You are experiencing a lot of stress. ? You have poor nutrition. What are the signs or symptoms? A URI usually involves some of the following symptoms: ? Runny or stuffy (congested) nose. ? Cough. ? Sneezing. ? Sore throat. ? Headache. ? Fatigue. ? Fever. ? Loss of appetite. ? Pain in your forehead, behind your eyes, and over your cheekbones (sinus pain). ? Muscle aches. ? Redness or irritation of the eyes. ? Pressure in the ears or face. How is this diagnosed? This condition may be diagnosed based on your medical history and symptoms, and a physical exam. Your health care provider may use a swab to take a mucus sample from your nose (nasal swab). This sample can be tested to determine what virus is causing the illness. How is this treated? URIs usually get better on their own within 7?10 days. Medicines cannot cure URIs, but your health care provider may recommend certain medicines to help relieve symptoms, such as: ? Bmfq-fcz-xzavqvf cold medicines. ? Cough suppressants. Coughing is a type of defense against infection that helps to clear the respiratory system, so take these medicines only as recommended by your health care provider. ? Fever-reducing medicines. Follow these instructions at home: Activity ? Rest as needed. ? If you have a fever, stay home from work or school until your fever is gone or until your health care provider says your URI cannot spread to other people (is no longer contagious). Your health care provider may have you wear a face mask to prevent your infection from spreading. Relieving symptoms ? Gargle with a mixture of salt and water 3?4 times a day or as needed. To make salt water, completely dissolve ??1 tsp (3?6 g) of salt in 1 cup (237 mL) of warm water. ? Use a cool-mist humidifier to add moisture to the air. This can help you breathe more easily. Eating and drinking ? Drink enough fluid to keep your urine pale yellow. ? Eat soups and other clear broths. General instructions ? Take jjpe-afr-qtdlies and prescription medicines only as told by your health care provider. These include cold medicines, fever reducers, and cough suppressants. ? Do not use any products that contain nicotine or tobacco. These products include cigarettes, chewing tobacco, and vaping devices, such as e-cigarettes. If you need help quitting, ask your health care provider. ? Stay away from secondhand smoke. ? Stay up to date on all immunizations, including the yearly (annual) flu vaccine. ? Keep all follow-up visits. This is important. How to prevent the spread of infection to others URIs can be contagious. To prevent the infection from spreading: ? Wash your hands with soap and water for at least 20 seconds. If soap and water are not available, use hand blueprint clerk. ? Avoid touching your mouth, face, eyes, or nose. ? Cough or sneeze into a tissue or your sleeve or elbow instead of into your hand or into the air. Contact a health care provider if: ? You are getting worse instead of better. ? You have a fever or chills. ? Your mucus is brown or red. ? You have yellow or brown discharge coming from your nose. ? You have pain in your face, especially when you bend forward. ? You have swollen neck glands. ? You have pain while swallowing. ? You have white areas in the back of your throat. Get help right away if: ? You have shortness of breath that gets worse. ? You have severe or persistent: ? Headache. ? Ear pain. ? Sinus pain. ? Chest pain. ? You have chronic lung disease along with any of the following: ? Making high-pitched whistling sounds when you breathe, most often when you breathe out (wheezing). ? Prolonged cough (more than 14 days). ? Coughing up blood. ? A change in your usual mucus. ? You have a stiff neck. ? You have changes in your: ? Vision. ? Hearing. ? Thinking. ? Mood. These symptoms may (more content not included)... [facility] 02-14-2023 Note Patient Education Ma terials Follows: Hand Contusion A hand contusion is a deep bruise to the hand. Contusions are the result of a blunt injury to tissues and muscle fibers under the skin. The injury causes bleeding under the skin. The skin overlying the contusion may turn blue, purple, or yellow. Minor injuries may cause a painless contusion, but more severe injuries may cause contusions that stay painful and swollen for a few weeks. What are the causes? This condition is usually caused by a hard hit or direct force to your hand, such as having a heavy object fall on your hand. What are the signs or symptoms? Symptoms of this condition include: ? A swollen hand. ? Pain and tenderness in your hand. ? Discoloration of your hand. The area may have redness and then turn blue, purple, or yellow. How is this diagnosed? This condition is diagnosed based on: ? A physical exam. ? Your medical history. ? Imaging studies, such as: ? An X-ray. This may be needed to check for other injuries, such as broken bones (fractures). ? A CT scan or an MRI. This may be done if your health care provider thinks you have torn or injured ligaments. How is this treated? This condition may be treated with: ? Rest, ice, pressure (compression), and raising (elevating) the injured area. This is often called RICE therapy. ? An elastic wrap to support your hand. ? Feua-ayq-ghwngwy medicines to control pain. Follow these instructions at home: RICE therapy ? Rest the injured area. ? If directed, put ice on the injured area. ? Put ice in a plastic bag. ? Place a towel between your skin and the bag. ? Leave the ice on for 20 minutes, 2?3 times a day. ? If directed, apply light compression to the injured area using an elastic wrap. ? Make sure the wrap is not too tight. ? If your fingers become numb or turn cold or blue, take the wrap off and reapply it more loosely. ? Remove and reapply the wrap as told by your health care provider. ? Raise (elevate) the injured area above the level of your heart while you are sitting or lying down. General instructions ? Take bbdt-vze-riijgjq and prescription medicines only as told by your health care provider. ? Protect your hand from getting injured further. ? Keep all follow-up visits as told by your health care provider. This is important. Contact a health care provider if: ? Your symptoms do not improve after several days of treatment. ? You have increased redness, swelling, or pain in your hand or fingers. ? You have difficulty moving the injured area. ? Your swelling or pain is not relieved with medicines. Get help right away if: ? You have severe pain. ? Your hand or fingers become numb. ? Your hand or fingers turn pale, blue, or cold. ? You cannot move your hand or wrist. ? Your hand is warm to the touch. Summary ? A hand contusion is a deep bruise to the hand. ? Contusions are the result of a blunt injury to tissues and muscle fibers under the skin. ? This injury is treated with rest, ice, compression and elevation. This information is not intended to replace advice given to you by your health care provider. Make sure you discuss any questions you have with your health care provider. Document Revised: 07/13/2021 Document Reviewed: 07/13/2021 [employer] Patient Education ? 2022 [employer] How to Use Cold Therapy Cold therapy, also known as cryotherapy, is a treatment that uses cold temperatures to treat an injury or medical condition. It includes using cold packs or ice packs to reduce pain and swelling. Only use cold therapy if your health care provider approves. What are the risks? Generally, cold therapy is a safe treatment. However, it is not safe for: ? People who are not able to say they are in pain, such as small children and people who have dementia. ? People who have certain conditions, such as: ? A problem in the vessels that slows blood flow to the fingers and toes (Raynaud's syndrome). ? Feeling very cold easily (cold hypersensitivity). ? Numbness or lack of feeling in the area being iced. Cold therapy may be unsafe for people who have other conditions. Do not use cold therapy without your health care provider's approval if you have: ? A heart condition. ? High blood pressure. ? Open or healing wounds. ? An infection. ? Rheumatoid arthritis. ? Poor circulation. ? Diabetes. ? Certain skin conditions. How do I make a cold pack? When using a cold pack at home to reduce pain and swelling, you can use: ? A silica gel cold pack that has been left in the freezer. You can buy this online or in stores. ? A sealable plastic bag that has been filled with crushed ice. ? A washcloth or paper towels soaked in cold water or ice water. ? A plastic bag of frozen vegetables. Discard when finished using them as a cold pack. Supplies needed: ? A cold pack. ? A towel. This can be dry or damp, depending on your pr (more content not included)... [facility] 11-15-2022 Note Education Materials Orthopedics Sciatica Rehab Ask your health care provider which exercises are safe for you. Do exercises exactly as told by your health care provider and adjust them as directed. It is normal to feel mild stretching, pulling, tightness, or discomfort as you do these exercises. Stop right away if you feel sudden pain or your pain gets worse. Do not begin these exercises until told by your health care provider. Stretching and dacmv-xf-poopdl exercises These exercises warm up your muscles and joints and improve the movement and flexibility of your hips and back. These exercises also help to relieve pain, numbness, and tingling. Sciatic nerve glide 1. Sit in a chair with your head facing down toward your chest. Place your hands behind your back. Let your shoulders slump forward. 2. Slowly straighten one of your legs while you tilt your head back as if you are looking toward the ceiling. Only straighten your leg as far as you can without making your symptoms worse. 3. Hold this position for seconds. 4. Slowly return to the starting position. 5. Repeat with your other leg. Repeat times. Complete this exercise times a day. Knee to chest with hip adduction and internal rotation 1. Lie on your back on a firm surface with both legs straight. 2. Bend one of your knees and move it up toward your chest until you feel a gentle stretch in your lower back and buttock. Then, move your knee toward the shoulder that is on the opposite side from your leg. This is hip adduction and internal rotation. ? Hold your leg in this position by holding on to the front of your knee. 3. Hold this position for seconds. 4. Slowly return to the starting position. 5. Repeat with your other leg. Repeat times. Complete this exercise times a day. Prone extension on elbows 1. Lie on your abdomen on a firm surface. A bed may be too soft for this exercise. 2. Prop yourself up on your elbows. 3. Use your arms to help lift your chest up until you feel a gentle stretch in your abdomen and your lower back. ? This will place some of your body weight on your elbows. If this is uncomfortable, try stacking pillows under your chest. ? Your hips should stay down, against the surface that you are lying on. Keep your hip and back muscles relaxed. 4. Hold this position for seconds. 5. Slowly relax your upper body and return to the starting position. Repeat times. Complete this exercise times a day. Strengthening exercises These exercises build strength and endurance in your back. Endurance is the ability to use your muscles for a long time, even after they get tired. Pelvic tilt This exercise strengthens the muscles that lie deep in the abdomen. 1. Lie on your back on a firm surface. Bend your knees and keep your feet flat on the floor. 2. Tense your abdominal muscles. Tip your pelvis up toward the ceiling and flatten your lower back into the floor. ? To help with this exercise, you may place a small towel under your lower back and try to push your back into the towel. 3. Hold this position for seconds. 4. Let your muscles relax completely before you repeat this exercise. Repeat times. Complete this exercise times a day. Alternating arm and leg raises 1. Get on your hands and knees on a firm surface. If you are on a hard floor, you may want to use padding, such as an exercise mat, to cushion your knees. 2. Line up your arms and legs. Your hands should be directly below your shoulders, and your knees should be directly below your hips. 3. Lift your left leg behind you. At the same time, raise your right arm and straighten it in front of you. ? Do not lift your leg higher than your hip. ? Do not lift your arm higher than your shoulder. ? Keep your abdominal and back muscles tight. ? Keep your hips facing the ground. ? Do not arch your back. ? Keep your balance carefully, and do not hold your breath. 4. Hold this position for seconds. 5. Slowly return to the starting position. 6. Repeat with your right leg and your left arm. Repeat times. Complete this exercise times a day. Posture and body mechanics Good posture and healthy body mechanics can help to relieve stress in your body's tissues and joints. Body mechanics refers to the movements and positions of your body while you do your daily activities. Posture is part of body mechanics. Good posture means: ? Your spine is in its natural S-curve position (neutral). ? Your shoulders are pulled back slightly. ? Your head is not tipped forward. Follow these guidelines to improve your posture and body mechanics in your everyday activities. Standing ? When standing, keep y (more content not included)... [facility] 08-11-2022 Note Education Materials Obstetrics and Gynecology Miscarriage A miscarriage is the loss of a before the 20th week of . Sometimes, a ends before a woman knows that she is . If you lose a , talk with your doctor about: ? Questions you have about the loss of your baby. ? How to work through your grief. ? Plans for future . What are the causes? Many times, the cause of this condition is not known. What increases the risk? These things may make a woman more likely to lose a : Certain health conditions ? Conditions that affect hormones, such as: ? Thyroid disease. ? Polycystic ovary syndrome. ? Diabetes. ? A disease that causes the body's disease-fighting system to attack itself by mistake. ? Infections. ? Bleeding problems. ? Being very overweight. Lifestyle factors ? Using products that have tobacco or nicotine in them. ? Being around tobacco smoke. ? Having alcohol. ? Having a lot of caffeine. ? Using drugs. Problems with reproductive organs or parts ? Having a cervix that opens and thins before your due date. The cervix is the lowest part of your womb. ? Having Asherman syndrome, which leads to: ? Scars in the womb. ? The womb being abnormal in shape. ? Growths (fibroids) in the womb. ? Problems in the body that are present at . ? Infection of the cervix or womb. Personal or health history ? Injury. ? Having lost a before. ? Being younger than age 18 or older than age 35. ? Being around a harmful substance, such as radiation. ? Having lead or other heavy metals in: ? Things you eat or drink. ? The air around you. ? Using certain medicines. What are the signs or symptoms? ? Blood or spots of blood coming from the vagina. You may also have cramps or pain. ? Pain or cramps in the belly or low back. ? Fluid or tissue coming out of the vagina. How is this treated? Sometimes, treatment is not needed. If you need treatment, you may be treated with: ? A procedure to open the cervix more and take tissue out of the womb. ? Medicines. You may get a shot of medicine called Rho(D) immune globulin. Follow these instructions at home: Medicines ? Take ejlk-xor-clqngsu and prescription medicines only as told by your doctor. ? If you were prescribed antibiotic medicine, take it as told by your doctor. Do not stop taking it even if you start to feel better. Activity ? Rest as told by your doctor. Ask your doctor what activities are safe for you. ? Have someone help you at home during this time. General instructions ? Watch how much tissue comes out of the vagina. ? Watch the size of any blood clots that come out of the vagina. ? Do not have sex or douche until your doctor says it is okay. ? Do not put things, such as tampons, in your vagina until your doctor says it is okay. ? To help you and your partner with grieving: ? Talk with your doctor. ? See a counselor. ? When you are ready, talk with your doctor about: ? Things to do for your health. ? How you can be healthy if you get again. ? Keep all follow-up visits. Where to find more information ? [employer]: acog.org ? [place] Department of Health and Human Services Office of Women's Health: hrsa.gov/etdref-xnpdyr-ppfvxr Contact a doctor if: ? You have a fever or chills. ? There is bad-smelling fluid coming from the vagina. ? You have more bleeding. ? Tissue or clots of blood come out of your vagina. Get help right away if: ? You have very bad cramps or pain in your back or belly. ? You soak more than 2 large pads in an hour for more than 2 hours. ? You get light-headed or weak. ? You faint. ? You feel sad, and you have sad thoughts a lot of the time. ? You think about hurting yourself. Get help right awayif you feel like you may hurt yourself or others, or have thoughts about taking your own life. Go to your nearest emergency room or: ? Call your local emergency services (911 in the [place] ? Call the National Suicide Prevention Lifeline at . This is open 24 hours a day. ? Text the Crisis Text Line at 577466. Summary ? A miscarriage is the loss of a before the 20th week of . Sometimes, a ends before a woman knows that she is . ? Follow instructions from your doctor about medicines and activity. ? To help you and your partner with grieving, talk with your doctor or a counselor. ? Keep all follow-up visits. This information is not intended to replace advice given to you by your health care provider. Make sure you discuss any questions you have with your health care provider. Document Revised: 09/23/2020 Document Reviewed: 09/23/2020 [employer] Patient Education ? 2021 [employer]. [facility] 06-12-2022 Note Patient Education Ma terials Follows: Cough, Adult A cough helps to clear your throat and lungs. A cough may be a sign of an illness or another medical condition. An acute cough may only last 2?3 weeks, while a chronic cough may last 8 or more weeks. Many things can cause a cough. They include: ? Germs (viruses or bacteria) that attack the airway. ? Breathing in things that bother (irritate) your lungs. ? Allergies. ? Asthma. ? Mucus that runs down the back of your throat (postnasal drip). ? Smoking. ? Acid backing up from the stomach into the tube that moves food from the mouth to the stomach (gastroesophageal reflux). ? Some medicines. ? Lung problems. ? Other medical conditions, such as heart failure or a blood clot in the lung (pulmonary embolism). Follow these instructions at home: Medicines ? Take caor-mww-tfykgae and prescription medicines only as told by your doctor. ? Talk with your doctor before you take medicines that stop a cough (cough suppressants). Lifestyle ? Do not smoke, and try not to be around smoke. Do not use any products that contain nicotine or tobacco, such as cigarettes, e-cigarettes, and chewing tobacco. If you need help quitting, ask your doctor. ? Drink enough fluid to keep your pee (urine) pale yellow. ? Avoid caffeine. ? Do not drink alcohol if your doctor tells you not to drink. General instructions ? Watch for any changes in your cough. Tell your doctor about them. ? Always cover your mouth when you cough. ? Stay away from things that make you cough, such as perfume, candles, campfire smoke, or cleaning products. ? If the air is dry, use a cool mist vaporizer or humidifier in your home. ? If your cough is worse at night, try using extra pillows to raise your head up higher while you sleep. ? Rest as needed. ? Keep all follow-up visits as told by your doctor. This is important. Contact a doctor if: ? You have new symptoms. ? You cough up pus. ? Your cough does not get better after 2?3 weeks, or your cough gets worse. ? Cough medicine does not help your cough and you are not sleeping well. ? You have pain that gets worse or pain that is not helped with medicine. ? You have a fever. ? You are losing weight and you do not know why. ? You have night sweats. Get help right away if: ? You cough up blood. ? You have trouble breathing. ? Your heartbeat is very fast. These symptoms may be an emergency. Do not wait to see if the symptoms will go away. Get medical help right away. Call your local emergency services (911 in the [place] Do not drive yourself to the hospital. Summary ? A cough helps to clear your throat and lungs. Many things can cause a cough. ? Take bree-ncf-empghpw and prescription medicines only as told by your doctor. ? Always cover your mouth when you cough. ? Contact a doctor if you have new symptoms or you have a cough that does not get better or gets worse. This information is not intended to replace advice given to you by your health care provider. Make sure you discuss any questions you have with your health care provider. Document Revised: 05/13/2020 Document Reviewed: 04/13/2019 [employer] Patient Education ? 2021 [employer]. Infectious Disease Pharyngitis Pharyngitis is a sore throat (pharynx). This is when there is redness, pain, and swelling in your throat. Most of the time, this condition gets better on its own. In some cases, you may need medicine. What are the causes? ? An infection from a virus. ? An infection from bacteria. ? Allergies. What increases the risk? ? Being 5?24 years old. ? Being in crowded environments. These include: ? Daycares. ? Schools. ? Dormitories. ? Living in a place with cold temperatures outside. ? Having a weakened disease-fighting (immune) system. What are the signs or symptoms? Symptoms may vary depending on the cause. Common symptoms include: ? Sore throat. ? Tiredness (fatigue). ? Low-grade fever. ? Stuffy nose. ? Cough. ? Headache. Other symptoms may include: ? Glands in the neck (lymph nodes) that are swollen. ? Skin rashes. ? Film on the throat or tonsils. This can be caused by an infection from bacteria. ? Vomiting. ? Red, itchy eyes. ? Loss of appetite. ? Joint pain and muscle aches. ? Tonsils that are temporarily bigger than usual (enlarged). How is this treated? Many times, treatment is not needed. This condition usually gets better in 3?4 days without treatment. If the infection is caused by a bacteria, you may be need to take antibiotics. Follow these instructions at home: Medicines ? Take yshz-yda-rhhwdey and prescription medicines only as told by your doctor. ? If you were prescribed an antibiotic medicine, take it as told by your doctor. Do not stop taking the antibiotic even if you start to feel better. ? Use throat loze (more content not included)... [facility] Evaluation note No assessment inform ation available [facility] Work Phone: Evaluation note Diagnosis Nausea and vomiting during - Primary documented in this encounter [facility] filedocumented [facility] this encounter [facility]Not on filedocumented in this encounter [facility] Chief Complaint and Reason for Visit Chief Complaint right knee pain Lt foot/ankle injury fell down stairs Advance Directives No Advanced Directives Records Found Advance Directive Response Recorded Date/ Time Advance Directives No May 15, 2021 9:11pm Summary Purpose Family History No Family History Records FoundNo Family History Records FoundNo Family History Records FoundNo Family History Records Found Additional Source Comments Care Teams (unrecognized sec tion and content) Team Status: Inactive Member Role Status Dates NON STAFF Primary Care Provider Active Oneil Ricci APRN Emergency Provider Active Team Status: Inactive Member Role Status Dates NON STAFF Primary Care Provider Active Yovani Valle PA-C Emergency Provider Active Team Status: Active Member Role Status Dates NON STAFF 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 Relationship Specialty Start Date End Date [facility] [address] [place], [place] PCP - General Family Medicine 08/11/18 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 Relationship Specialty Start Date End Date ServicesReplaced By [facility] [address] [place], [place] PCP - General Family Medicine 08/11/18 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 Relationship Specialty Start Date End Date [facility] [place] [place] PCP - General Family Medicine 08/11/18 Goals (unrecognized section and content) Goals may be documented in a n alternate sectionNot on filedocumented as of this encounterNot on filedocumented as of this encounterNot on filedocumented as of this encounterNot on filedocumented as of this encounter INFORMATION SOURCE (unrecogn ized section and content) DATE CREATED AUTHOR 07/27/2021 [facility] DATE CREATED AUTHOR AUTHOR'S ORGANIZ ATION 08/16/2022 [facility] DATE CREATED AUTHOR AUTHOR'S ORGANIZ ATION 05/04/2023 [facility] DATE CREATED AUTHOR AUTHOR'S ORGANIZ ATION 05/27/2023 [facility] FOR RECORDS PERTAINING TO PATIENTS WHO ARE OR HAVE BEEN ENROLLED IN A CHEMICAL DEPENDENCY/SUBSTANCEABUSE PROGRAM, SOME INFORMATION MAY BE OMITTED. This clinical summary was aggregated from multiple sources. Caution should be exercised in using it in the provision of clinical care. This summary normalizes information from multiple sources, and as a consequence, information in this document may materially change the coding, format and clinical context of patient data. In addition, data may be omitted in some cases. CLINICAL DECISIONS SHOULD BE BASED ON THE PRIMARY CLINICAL RECORDS. [facility] [employer] [facility]. provides no warranty or guarantee of the accuracy or completeness of information in this document.
== END 2023-05-28 10:05 | disposition home or self-care (01) ==
LOC: LAB 10:05
PROVIDERS: Visit Provider Obstetrics & Gynecology
DX: Z36.0 Encounter for antenatal screening for chromosomal anomalies (principal)
CPT/HCPCS: 36415

== ENCOUNTER 2023-06-10 10:51 | Outpatient (OUT) | payer OTHER, SELFPAY ==
--- OUTSIDE RECORDS SUMMARY | 2023-06-10 10:56 | XMS_ITS | CCD ---
Author Name Unknown Address [address] [place] [address] Organization [facility] Care Team Providers Care Quality Assurance Advisor Name Role Phone NON STAFF Primary Care Provider LAURA Kraft Emergency Provider [phone] NICOLE Ricci Emergency Provider DAPHNIE ., DR ALEXANDRE Attending Unavailabl e KARASIK ., DR ALEXANDRE Admitting Unavailabl [facility] Unava ilable KARASIK ., DR ALEXANDRE Consulting Unavailabl e LAVINIA, DR CHRISTIAN Doyle Consulting Unavailable KARASIK ., DR ALEXANDRE Consulting Unavailabl e KARASIK ., DR ALEXANDRE Attending Unavailabl e [facility] Unava ilable KARASIK ., DR ALEXANDRE Admitting Unavailabl e ANGELA SCOTT Consulting Unavailable DINA, DR ANA Dennis Attending Unavailable DINA, DR ANA Dennis Admitting Unavailable [facility] Unava ilable DINA, DR ANA Dennis Consulting Unavailable KILO ., MR CUADRA Consulting Unavailable KARASIK ., DR ALEXANDRE Attending Unavailabl e [facility] Unava ilable KARASIK ., DR ALEXANDRE Admitting Unavailabl e KARASIK ., DR ALEXANDRE Attending Unavailabl e [facility] Unava ilable KARASIK ., DR ALEXANDRE Admitting Unavailabl e KARASIK ., DR ALEXANDRE Consulting Unavailabl e JOANNE HUDSON Consulting Unavailable GAVIN ATKINS Consulting Unavailable [facility] Unava ilable KARASIK ., DR ALEXANDRE [...] ., DR ALEXANDRE Attending Unavailabl e [facility] Primary [facility] Emergency Department Unava ilable KARASIK ., DR ALEXANDRE Admitting Unavailabl e KARASIK ., DR ALEXANDRE Consulting Unavailabl e ZIEBER, ANGELA Dennis Consulting Unavailable KARASIK ., DR ALEXANDRE Attending Unavailabl e KARASIK ., DR ALEXANDRE Admitting Unavailabl e [facility] Primary [facility] Emergency Department Unava ilable KARASIK ., DR ALEXANDRE Consulting Unavailabl e KARASIK ., DR ALEXANDRE Consulting Unavailabl e KARASIK ., DR ALEXANDRE Attending Unavailabl e [facility] Primary [facility] Emergency Department Unava ilable KARASIK ., DR ALEXANDRE Admitting Unavailabl e WEST, DR CHRISTIAN Doyle Consulting Unavailable REQUEST, DR TYSON LISTED Consulting Unavaila ble [facility] Primary Care Provider Unavailable Primary Care Provider Unavailmichael e Oneil Salomon Admitting Unavaila ble Oneil Salomon Attending Unavaila ble ROBERT MARRERO R Primary Care Unavailable Mario PACErrol Attending Unavailable Errol Ortega Admitting Unavailable DORA JASSO Admitting Unavailable DORA JASSO Attending Unavailable Alaina Matta CNM Attending Unavailable Provider, None Primary Care Unavailable Alaina Matta CNM Admitting Unavailable Adamaris Jaeger PA-C Attending Unavailable Provider, None Primary Care Unavailable Adamaris Jaeger PA-C Admitting Unavailable AustynerYassine Admitting Unavailable AustynerYassine Attending Unavailable JANES, ROBERT R Primary Care Unavailable Mamie Moore Admitting Unavailab Mamie Menchaca Attending Unavailab le ROBERT MARRERO R Primary Care Unavailable Yassine Maldonado Admitting Unavailable AustynerYassine Attending Unavailable JANES, ROBERT R Primary Care Unavailable Tom Smith Admitting Unavailab Tom Canas Attending Unavailab le Provider, Unlisted Primary Care Unavailable Provider, None Primary Care Unavailable Anusha Palomo Admitting Unavailable Anusha Palomo Attending Unavailable Provider, None Primary Care Unavailable Nelson Sharma Admitting Unavailable Nelson Sharma Attending Unavailable Allergies Allergy Classification Reported Allergen(s) Allergy Type Date of Onset Reaction(s) Facility (1 source) Alfentanil Drug Allergy [facility] Repository (1 source) Azithromycin Drug Allergy [facility] Repository (4 sources) Adhesive agent Propensity to adverse reactions to drug 3 [facility] (6 sources) Azithromycin Drug Allergy 2 [facility] (2 sources) Macrolides And Ketolides Drug Allergy 4 Unknown [facility] (2 sources) Wound Dressing Adhesive Drug Allergy 4 [facility] (1 source) Adhesive bandage; Translations: [Adhesive Bandage] Propensity to adverse reactions (disorder) [facility] Repository (1 source) Azithromycin; Translations: [Zithromax] Drug Allergy [facility] Repository Medications Current Medications Medication Drug Class(es) Dates Sig (Normalized) Sig (Original) [id number] 200 actuat albuterol 0.09 mg/actuat metered dose [...] Test Name Value Interpretation Reference Range Facility Coding Summaryon 05-31-2023 Coding Summary HTMLBase 64 GoqkiscjANf3gIu+PGhl YWQ+NX2AECTrI11pbFGn jT5jM6BYUFjTKgodVKVZ PCoHQjAdcyOoMM4edJEd ZXJu IC8+CO1oSPLzMiwjcYYo x5H6yIS7E80far0oTCux nZQ2WBAvYzRnegwvt4xi cRt7APdnKphsVzTj UTBvjX09FXD7jP67Ni22 fOMfrFVup1cahMy4WtSy NVZjVJS7mUvbTBdek5Hj PGTmJ37mzCXnl4Q3 IGNvbGxhcHNlOyBlbXB0 pP4wJVcvgvlws4ncjcns Nqw6tp03bBKhq8W5rES9 R8JigyG4CNTwvOUl GvxqmYJOjD9rgyhtc9ir xxuwWqBaNOGbSNw8MNz4 NUZqvTzrMwBdNI97AUQ8 UKJpsqYgC0PvBIZy aRusUiF2f3D8Co7TY8OU OairK5YMHCLKWJuazLI+ OD66hk00Q8QsOqoeLhl8 NFPtKFF4xJR3jW4v ZHPiHTuek3U7uDB9N1Kj hwLuwm8ve4reNLUsRGcv H68ktLXgz5F6CVGztAO9 NRFqrJhaPmRbbO84 Oyc+CRPswXwev0DuXamf g9xua8jsoNw7HiafEIWl zwTxsAluXVI7k1NaXb2u HYDriTC7eSH1sT6l AlHdJpH5QOjgD359ByRx gENwAuepH73gX8ClwHF+ FPVxMhj5KZWcbMykGQ2r V0AdRZWzhwsbbMAn hEayTA4wAFZnnvrjNGEm mH7pWELxW3j6CoYhLkI4 BLdxV7GuYGQqdphtEm48 oQ9dMcTzJxB5UTtn D8PjuqI4GSTzgNUhYXyb VUF8C48zu8R3MTOaTDEk GYN9iMT7wK2ymKroyyro bGVmdDsgdmVydGlj ATncJBunF898ZMBqiQxa PkNvZGluZyBEYXRlOiAg MDIvMjMvMjAyNDwvdGQ+ CEVlKAI8qJcoNMXr pGOsKMhsPb8nmEeteNxg KK2vHTItvdjwOVYkqR3i XGIpyUAhsKmxLF6hVHBb dhjmj843LgBxYWK4 ZXNrcYOwU4UdoX6hUmUs WTJfDHTiY0AjgOJwCOda G191BPjbVoB1NKQhhqWi X7OdPVBjvQknOgN5 y6U4Iq1Ht8MkigbkD3Gi xJJhMtBbJdknLEx0O2Dr PjwvdHI+TG73ZUFaQM73 MDe2LNY7wVqfNVdm KNIbB7SuaP2sLdIfHIRp ZGRkOyc+PHRhYmxlIHdp ZHRoPScxMDAlJyBzdHls NE2nZi9wCJKqCUNh zFobzPWsTrRto2gkPVGc JNsbRH5rnBqeY8PmkIB9 ODJea6f3Ma56F81oT5El dXA+CERgxLJ3iOV6 oF0sErBiPhA4VQxpO483 YhDqvYDyBejub6ylj6js vAz1PvX2ULYvlhPqnFyk ZLP7r4HwHz31P06s IHdpZHRoPSIxNSUiIHZh xTtgai5ndC5aVn4+PGNv hAJ6bNS2zY1jVpJlSgL5 LKqqV235DmHzxVWh Nmakr5sid0gihLl7IyMe KVGgsrGtoGstDPV1w7Ye Mu98W3MkpBhkf0YnUjq7 nf32yLUlu0Y2oKT7 Q8ErDIMqzekcrCBmyBxd AX6xIEOkyfdaRVHejV7y GZLqT5l9QhWeGeB0CLrp B9QftcR3IORahGDe SHQvtLXUrI0pdhdiv9rj cunrBvXdKZPnSKt1FPm1 RAOmaRixOsGjISW6IxG9 OHD4jTDdhK9utFqn mblefW4vCpq+MHY7gPFi sHWNUN7nOrkmgTP+PHRk GLN5xIpeSJccQQXfdP4u EXEkL4d6CgZfEoF5 LEbiE9NmuqK2ZFGvyCVy WMVdmRQHcX9zemrwy3lw gzzfIrGiAMYnXCm2QGg5 LWFsaWduOiBsZWZ0 RfX1JDN1yFLdhE7yaOon owdzfE9aDxz+QmlydGgg YWZ8HUk2D7CrIpw2GCVa vGrjIM4dpWPcTInp Bu9oyHhsmQkeOA0xXMLr nozzk948FcCqb0fqKHUl aNCpQBnhYKX1F59tz4U3 CUNoPMKaDCU9lWH6 mK6mhQyvvmgggWObfGng bgDhiDylJAzwJVtfP075 OJDcyKxtFxYkZLa8D9Up Lkz4BMVonHqhXA9t wYLpZSagRy7xaUnssFue FJ7eSALoutqrc919HgFn b1kfTQSmjQHsMEcvZZW0 F74df7V8XMJbQJHi JRN2jSA8gH0ngCjcctss bGVmdDsgdmVydGljYWwt YHwhK799OOAcbMvcXaDx mYo2J4ExOnp8UTZm hYpeXJ6sfBZoVGomNv4e lKzrmZauVC3wQFIetasj j639QfRnm8pcRJCklLSb ROheUHE2Q72ub6X7 LXMwXHLrEOD9vWM2qZ9e bGlnbjogbGVmdDsgdmVy jTjkUCxjKZxvP883RNPf cDsnPlBhdGllbnQg OWbmLNj9B9LfRxmcpOG+ FO48UVEcRR53lRXwrLVs w6yrrBb8GgByGJWvNQJ5 gEsvRZanw5CfZSKt M49lqUNlr8O6YRTncDxb oVWpWzXagBQ8tW8qZGez mwodq4bmebynJagma5qz sh75vP13O93tEIpf ZHRoPSIzMCUiIHZhbGln hz2inR6wEs5+PGNvbCB3 nBI7fL1bESDvJyM7AHgh Q234UbEczFKlGeyr p1pxx8bybZe5IcD1RJIr zaVywRjiDMI5j2OuYx14 T80iYLufMVRaIAVqJBYk AJYefXzckk7cjY6k Ii8+EROosSQ0uHI8rS2e JjDlOyF7WHzbI069VqHu bMMaYtgtC14iG4HfbRF+ GRNnPgv4KNTujFgq SN8tmNSsYPkfDd6xQAJ5 GmTbAbBmKJslW8AlHFAv vipqujdtbVK1UBKyFXRz kV51Ec0qvCeuTONz qXAIxB5kcijst2tgszev WxGrKGZfUJt7YAk9YQWg fVmuMoJmMQF0JiB9MUZ1 wGIlaN2lwCphfeea oD4kR4TkRMXpdklhRo85 mJ0kDwYgIkU9YEvlNwn+ C6vFTdKPJTslM8oUSYTP EIpCZN2ZKIchrLA+ DDXnTDY9uXgtHSmyBBQp tA8iUCJbY4l0NeLyNrR3 TFrdD2WkVKDghmjySz88 vM5kKiGoCtO5KUfe C1ElprD3PUHsyTPyYRoy MDX3Z04rb6Q6DFVtFUXp WLS1kEO0iA2vtAzcsvsj bGVmdDsgdmVydGlj OFowPCjoL814BIUdtIna PvC9FkVlIcBdQFS0K7Jb Vff6GOUpoPmxUU7qvJZd KJjeWv3mtEwpsOap BD8xVKJefrxlTGHitK1u XPUbdKMngVjvBC7pCOEh yefyk026KvByLSU4BSUw yVWuU7HhfG1qTdCb SKHmAHKvF6UrpYHkBLzv M145XLeaDkY7ZNGotcPv N4AaPXKviZwxUfR4k1Y0 Da7uQVXWYBIjiseo dGQ+ZGPqKHX4qKxiPOps OTDnoP3eDETuZ2w8LaCu GiS1PHvuY1YwNNMqkbhw Qb63aW1nIeTpDjH5 HCzzU9YbutY3XGMmxOLc MJuyWRP2C87vl1W5ETQm RYSoQZE0cCI3bM8tkRjm bjogbGVmdDsgdmVy lKohRVdqWDpsU066RUNu cDsnPkZFTUFMRTwvdGQ+ CIXcBQW8bAjdEJniSKDh tH7dRAOvY0x6LqDq GbP2DMzmJ1QzRSIsiyde Lb07sO2iXqPuMgH8LVbv U9XftnG7LVEagCTiJQqy BTG3R65su3F0COFq GJEgCFU8gLJ2cW0oiHup bjogbGVmdDsgdmVydGlj KHgbDRuzS527ERFyeLoi WsJgFLGhQL4ggZfv dGQ+FY93ca83C4DpPttg Yrz1IUKlPCK9xNW5gE9n ZSCjTAwsc7Q9cRY3Q1Ux kqTwcc6gb7iyVUYj XTffR72ofWPtm0V7APIo wZB0VXMteUwfGbXvvH74 Oyc+OEEgpBapf0EzQhfj o3jpf3cvzNl4BvWc CLKxxwHwsCkzRFY9n1Lx Yx44X33cGYqtCXThUIZs ABHwSJNaxGugko9guM6m Ii8+HSSajPV6wEE0 sR7dNxMlJjK0TRgjU651 ElQyiTKwImqpq3ypb4lr hJi2ReSeGNRkpmUvbYdn SLW5a8JgGh77S6Fx vWskp9QcNsu2rq78rSFb w7I4bPJ2L0EkOQYahfyg hZSroGlpVK1fVCUmvcll NDWbuT3mZUUyX9t8 HvPuQeY7XRphB3HxpsD4 MBNwxGVfYVSstAAHgB5y zgjcs4vczbcmDaQvSOOr DGm8EIx0IIRtyXwq IpXhGUA5FxT7IBG8mQNs wI2wmMricznlzO1iJaa+ APo6z3fzyANwLZ1xzHQ7 LT13DA57oIBqq9M8 yXG6G1HzJVLqyfuwqbhv nEX0QLDiLKFcpN46Oy3j fYnhKm3gQXMvGNV9ALUt fMZgP8AxyH3yPrQj CXCjQMPmZ8JquXVuKBsa G357QXcoLnG2OGEifqUq F8ZcXUCenZtxYvM4u1L3 Ms2WKU30VV87LM92 rQLrx2O8mQW1A9TfICDv qmgjflsooQH1VNTwLCFx jH78Xq9ecFzgBa6xUAMw LSO5QUEqbIAcF1Ks rL5lClKpZODvMGOgK5Qw rQVnNJyoF237GMwxNnI5 ZIWbieUhP7XgDVLueRpp EeA6i4Y9Of0VBb67 LS14VU39jNNod5F8hAJ1 G7WaICQcjzuavhlfkKC0 FTZlDRPcjX81Kv4hbIwu My1oIXBbNUH7EKEx wWHcM1FwcR9sJdFbQODn HRPlF7UfaMSgUKauI673 UNevYrH2XWNeexRtL0Pw NMDauOttWmY4x6H9 Aa8PRVqneve9B0VrUgdi dHI+ZY18NLRwGS00fOBr cYZho6xzaHz6XxJlFNVs IOK9sBiwATdeo9Pb ZXI (more content not included)... Normal [facility] C Throaton 05-28-2023 C Throat Ordered by Radha. Normal throat jonny isolated No pathogens isolated [facility] Comment on above: Performed By: #### 1 [id number], [id number] #### [facility] (DEFAULT) [address] [place] [address] .QC SARS-CoV-2 (COVID-19)/Fl u/RSV (GeneXpert)on 05-26-2023 Internal Control Pass [facility] Comment on above: Order Comment: Order ed by Radha.[[email or web address]] Performed By: #### 1 [id number] #### [facility] (DEFAULT) [address] [place] [address] COVID/Flu/RSV (GeneXpert)on 05-26-2023 Flu A (GXpert COVFLURSV) Negative Normal Negative [facility] Comment on above: Performed By: #### 1 [id number], [id number], [id number] #### [facility] (DEFAULT) [address] [place] [address] Flu B (GXpert COVFLURSV) Negative Normal Negative [facility] Comment on above: Performed By: #### 1 [id number], [id number] #### [facility] (DEFAULT) [address] [place] [address] RSV (GXpert COVFLURSV) Negative Normal Negative [facility] Comment on above: Performed By: #### 1 [id number], [id number], [id number], [id number] #### [facility] (DEFAULT) [address] [place] [address] SARS-CoV-2 (COVID-19) RNA MILY+probe Ql (Unsp spec) Negative Normal Negative [facility] Comment on above: Result Comment: Perf ormed by PCR methodology. Performed By: #### 1 [id number], [id number] #### [facility] (DEFAULT) [address] [place] [address] ED Clinical Summaryon 2023 ED Clinical Summary [facility] - Emergency Department [address] [place] [address] ED Clinical Summary PERSON INFORMATION Name: LIA DESAI Age: 22 Years Sex: FEMALE : 2000 MRN: Acct#: Visit Reason: Diarrhea; Fever; Headache; Throat pain - Adult; Body aches; HEADACHE, FEVER, BODY ACHES Arrival: 05/26/2023 17:02:55 Discharge: 05/26/2023 18:57:00 LOS: 000 01:55 Check In: 05/26/2023 17:02:55 Checkout:05/26/2023 18:57:00 Address: [address] [place], [place] [id number] PCP: ROBERT MARRERO PROVIDER INFORMATION Provider Role Assigned Unassigned Yassine Maldonado MD ED Provider 05/26/2023 17:04:17 [place] [employer] Nurse 05/26/2023 17:19:42 VITALS INFORMATION Vital Sign Triage Latest Temperature Tympanic Temperature Temporal Artery Pulse Rate O2 Sat 97 % 97 % Respiratory Rate 16 br/min 16 br/min Blood Pressure /71 mmHg /71 mmHg MEDICAL INFORMATION Medications Given: Allergy Information: Adhesive Bandage; Zithromax PHYSICIAN DOCUMENTATION DISCHARGE INFORMATION: Discharge Disposition: Home Discharge Location: Home PATIENT EDUCATION INFORMATION Instructions: Hypertension, Adult, Swqw-tg-Vmpo; Nausea and Vomiting, Adult, Ejnv-hs-Wvus Follow-Up: With: Address: When: ROBERT MARRERO [address] [place] [address] Within 3 to 5 days DIAGNOSIS: 1:Nausea vomiting and diarrhea; 2:Elevated blood pressure reading; Diarrhea, unspecified Patient Understands: Yes - Patient/family/careg iver verbalizes understanding of instructions given Comment: Normal [facility] ED Patient Summaryon 024 ED Patient Summary [facility] - Emergency Department [address] [place] [address] PATIENT DISCHARGE INSTRUCTIONS Patient Information Name: LIA DESAI Age: 22 Years Date of : 2000 Reason For Visit: Diarrhea; Fever; Headache; Throat pain - Adult; Body aches; HEADACHE, FEVER, BODY ACHES Arrival Time: 05/26/2023 17:02:55 Primary Care Physician: ROBERT MARRERO Attending Physician: Yassine Maldonado MD Comment: Visit Diagnosis: Diagnoses This Visit Body aches ([id number]) Diarrhea ([id number]) Diarrhea, unspecified (R19.7) Elevated blood pressure reading (R03.0) Fever ([id number]) Headache ([id number]) Nausea vomiting and diarrhea (R11.2) Throat pain - Adult ([id number]) The Pharmacy at [facility] is open Saturday through Saturday from 9A [...] alcohol and/or drug addiction problems; contact the [facility] 29/10 Crisis Hotline -Text 4HSCH ob [phone]. If you received any narcotics, sedation, or [...] With: Address: When: ROBERT MARRERO [address] [place] [id number] Within 3 to 5 days Medication Information: The exam and treatment you received today in the [facility] Emergency Department were for an urgent problem and are not intended as complete care. It is important for you to follow up with a doctor, nurse practitioner, or physician?s assistant infant teacher for ongoing care. If your symptoms become [...] so we can reach you if necessary. [facility] Emergency Department has provided you with a complete list of medications post discharge. Please inform your industrial renderer/provider of your visit and for further instruction [...] pressure an (more content not included)... Normal [facility] Strep Aon 05-26-2023 Strep procedure control Pass Normal [facility] Comment on above: Performed By: #### 1 [id number], [id number] #### [facility] (DEFAULT) [address] [place] [address] Streptococcus A Negative Normal Negative [facility] Comment on above: Performed By: #### 1 [id number], [id number], [id number], [id number] #### [facility] (DEFAULT) [address] [place] [address] Coding Summaryon 05-20-2023 [facility] BfihbysdWIu0qKb+PGhl YWQ+BQ6VNACxK86ceUYl jH0zJ9LNXSpICcsnJTZS KTnOCyKvczQdTW7gtGHe ZXJu IC8+YY6sNDXcCpddoXMa l0F0jSC7S74iwo9yKJts hKI8NDDdIzNowioht8mg iGw3QLegUsqxBtTw JTMmwN92LLH5iU16Sm63 wGYzcZCtm2dzhVb8LuZy WMQqGEY4rHnmAOndl1Vk WXAmF02mcDPrk6N9 IGNvbGxhcHNlOyBlbXB0 vJ9pWEzujemtx9xalsjz Ugl2ls53gLJqc4U7wCZ7 S1XjxkM2ULElfOAf TkbvcRELrU7hjtpxp2dp yvfwWcDlVYAoVBv2EIp7 OAUluKurHjUaXI49CQT7 IIKinuIzH2CoVKYm zCqiXzK2a9R3Wc2HP0EF LrftN2GYSFJXPRqifTX+ TA33zb79K9PqZjhjUxs2 TILgSPQ1bNZ6nD0s YVTuPJixz8K0eWW9L1Fd ioUegm5ai1niTLSkMHev M72dmTTls5M7VITyyGI2 YIFshUiyPwJqaV67 Oyc+SFXceBjjk9WdJzts n2yxf3fjiJg3ScsiWCTz bbRbfUbeQKP1h0VcUz6q DPIulMB3bNQ6oS0l EtEyNeO4ITzcT025NaMd rRUzHhicV89rD8NzfEA+ QPYuVds2KJQtbLseVO9j K0UaDBOzvjrxeJQr aQiqMY1sALJrrvrcAMRm vO8cTLMeS6n0ZqDxHgA5 YWqsN9GzTVSqgkxwOi48 lF0hDvRtRjX3ULkm B6NwgaE8VDLctUPtNWmr NMY6D74mh6F0CDJgFFSf AHA4tTJ0dI5jmRsqomut bGVmdDsgdmVydGlj LTdgIRbhB509LVDcdBoc PkNvZGluZyBEYXRlOiAg MDIvMTIvMjAyNDwvdGQ+ UOFnQNS1vWdwSQLu mOQsUMsyEb3nkQximFih FS1iXMAdfyfoGINrdG7r YULdoGTdgBozXQ6qOUJb rpjcr011OpJtQHC3 HCMzbZHpX4VyzG7oEtTw IWVtQYCxA9VozTKpHBdm T556LOadFrO4VXBjqnUe K8OkMIIhwOlaIyG2 l1P1Uy2Sd9SjuavtX3Fh oUJrGeWoJugjBYh9D3Ny PjwvdHI+YT14DNPzKU24 IPw2CSP6eZirNEwn EPJwR1BbsI7zYhCiLTCz ZGRkOyc+PHRhYmxlIHdp ZHRoPScxMDAlJyBzdHls WW9lAp0uSJFrICPw wQrcfTSuUxHnc8jyTPLy WCwaKU5trEpvS2NfnFX4 MTKik3q8Zo09U02kV8Jz dXA+AKKpgDH2rUW0 zX1fXkAfSzY5DDuvC288 FwVjjWJhUkzun2smg3lb wJe7GaJ9XHWsnsYlqRat FYF9e4SwCz50D70x IHdpZHRoPSIxNSUiIHZh uKxiya0zpC7dFr5+PGNv uTU6gXT6aI4xVrYuHpZ0 MEhmH810UuHuaERd Dquhc8qxj8kxgAx6TdTt GOMfmbKjvUpxBXS0l4Zs Oi37I7XajVtgh5AwCnp5 in48jSBjm2S4gJL8 J5PwFQWqzvvdiUPniQbd RY1zBULxmxhqJPNgkD6q JXFmY6q3QbDlRaA3GNqs Y5CywlZ9WZJbpICg JJReaZMEfL4wqljhy2ov dyhcKxRsBBHdDVs9IXj0 QMRxtDooLqYwUSU9CrX3 XDI8gVSexO4ssJld pqcsdZ5lWzm+LKD3qESz cLOFPL6zHlmjkJJ+PHRk LYX9nZrdMOjxEZSskU9e ZMEdH4s2QrRfMaH3 AFstZ7CwtmE0IJZgoWSw GIOiyZGLfE7hfzrmb9li ckemTwGiJXCxRHx9IHu7 LWFsaWduOiBsZWZ0 PxX2NIF5rBAbpV6tjZfz funfcR6uLfo+QmlydGgg LQI1LUd9Z9QmIai5ODMb xGbbQB4ppVUoQGse Ex6hrShreApbRU6wCSFx evxwn372KhHky0wsBRLj bBPtEJmfXPN6W55ce1X8 VKWlLNXnIBI9zNH2 hM9kvQigxazpnVNkiRhv zeCimKtvEIgiFOpcR106 TENgpUxbXbWnOLa2P2Zi Ifo6NACxxXaxBP5h kEPfNMvjZz6mnSmmiUvb QO0jOTMpmuxov935TwSv r4vkWSBtwQTnNGqlHPE4 N20va8J2SEEyZYSr NHJ0sJL2rF8rbTvirsaq bGVmdDsgdmVydGljYWwt ZMoiY602TESkkKzjKcEu aVr7C3UzPng6ULRj oKyaCT7nnFLpEYatTm2t hRyjxGjoPJ6rCKUsqffh t858DxUuf1kaYUNweYQj ODxwFFJ4E90gs6N4 FZMoSWNeLBW4oHB3dR1p bGlnbjogbGVmdDsgdmVy fPubWIliYWyiS899NXTs cDsnPlBhdGllbnQg MNswTGi0O4QkRsnwnBB+ PT65GKOmYY57oQCyxQJa z3qhfPt0ZwBuTZBkFEN1 pQbiKUwpr4UuPPNm M38avAXdr9X4GHEryDqf sDMlLbKbePL0iK5fHSdo mguvn0grzbaoEjrnp0pw gy66gN14G15wDGjf ZHRoPSIzMCUiIHZhbGln cm2ypM1rEs6+PGNvbCB3 wIY0uL6yDRVaIkY1PXeh H489VcClbLIuSkgs k1rue5qbqCv7MuQ3DKMi skXkgBbeUFV0q1EaMr09 N01sSIusHMTrHBXmYXQu JAFurXuwls4rtU4f Ii8+SGNzdCH0rGC3aL8a VwHlWjR2FKugY714BsOf rNSdVjsfR04aV7ZpnVA+ PIUtKoi6VRWsnCbd OG6wwDZyCIynKw6bYWD7 JdBfFeRkZVjlZ8UcPJTu jtbmgexblNU4FJWsPKCa zL25Wf2akCakBCTn pMPOaE3loakif8uvlutw WjCxDJNkOWn2WQj1DJXm fQijPoXsFCU1TzU7XYU6 lAErcS5ssMayygkj rO8uM7TaJFIkgzmsTx46 pX8yEgSvGaL3RDspTor+ L1vJJaZAFKciL2hDAOMH LFhZWF8SWRknzJW+ RLWvTHN6hOyiHZmdRGKv sK3uFFFcY7y4PrClVnC7 KLiiC6WiYPFwrjgdQw32 xP0kCkJhRiM9PAks T3OygrF3HIKzaRVaMJol FFO1R82vo5R9CERnRDUm UGH0jZA0dB4jtOjlysub bGVmdDsgdmVydGlj VNulCArmB133ZNIadKsa IsF9QnMmYfZqXYY9J2Rm Lhw3QRQawOetUZ8qkNFv TOolIf5paBsxlNik JL5fWSPiopfoITWjhB2e EXEtcZFmkIbyKW0nHRJk agefz878WgMdUAH1PWNs yMVzR9DkkM2zNlNz DKJaHTBbG2VscFGyVVaf B053BRlkYxE1ZNIrsgEe D9EuHDIjiHsjVfK8a4Y2 Ig5uWZXIEZRhiozy dGQ+GGWyZWK1cRzjNYrs ONHymF9fNJBfH6f8MmGy RaR7KHliB6EtKRXqhvuo St86gB6hXjJnTvD6 SEqlD1PqxyC9YFDfrXPz TChmFSU2B72qt9H7IEFl BQFaBID6sKY0sL4eeEmf bjogbGVmdDsgdmVy dFisLDicDFbtS693OZHx cDsnPkZFTUFMRTwvdGQ+ RIUtXEI6fIwpADqxOIBn nZ9bQMVsO5d0OpQg CtT3DIcqZ4RnRZIiivjw Dy00fF8pOrRhClI2UBnb D6EntkW1NOAmsKBlZFdj JPJ0P76yq3K5POXm NCBnIPP5bYU6kZ6bnGbb bjogbGVmdDsgdmVydGlj IXoqLCswG990YZIdyGmw HiOrMLZqZQ6zvSfl dGQ+YP80qw29T0KmTmkw Odn8UBNhCBK4pKL6oQ7e BSNqVWaob5J9xZG8C3Uy cyJgpf0ei0qqCQPq ZVwsO59wiJFcb6C0MVUq bMI3AZZckBysVyYqsH75 Oyc+SCFccJkyh9VxTqon l5imn7pqxSl3PeFz YNUmjwBoyLcrJQM2j0Km Uz98X50sNIapGAZmEBVl HQUjOWGexGbwpv0drW6r Ii8+XKVsqPA1iMK2 xM6jVqZhAoR6ODvgX240 DqWkvZEhIwwuo9hpa9xn xRl3GdVcXKVhkfKqsUpu VVY2w4EeJm40G8Vr bQjxy1XkIzq5ym66sINg x3X9jGH1G3DfUSCedkuu iKMrxCxaLZ4kNQIjymzt KAGobV4kKNDqU8s7 JvOgKyB9JZdnA6QykaW1 APIknUPoYBYowVDPpS3o ysftn7ggzvkuTvPuZOPp OYi7DYb8XZYtkEmm TjPqEGQ6TrV8WDR3pJKh iB9sdFinjirteI6mBvv+ YQc4h8xugZQpAM2kwLG5 IW03VQ85mQCzz9H3 aPV1Y8InXGSnwqoqacvj qUB6JAPaZZWfeF44Pk7o gJxeWm5bCMAyRCU4ECKi nCUsC3BwrC7oPwXe ZKQcLQZlL5ArbVKxVOmn S807NCbmPsH5HCHgajWb B7HuZLTznLlbIcS1q5Z9 Mw0FJI15BH46PT14 iKDza2O4xNU8W6ZvQBRu eveoosafvOX2RYInWEXs aR11Iw0kqLkvLc8yAYNl RGC5IOVbbNTxX4Ee dX2vKxVkLROiGVLjR1Ri dXCjPQdkD401QRvuAlR5 JOKcfrHhJ2MjLCPnpLwj EsG7d8B8Os9LTx80 EP66HF28tKUgo9J2dKY3 J3BdWWCgcytdrlsruQQ1 GSBsYKMiuA65Jn3zwGio Wb5hSGSrIZT8URBs xXUeK6YneA4nTyHpJHZc UOLgT7PzfPSmOTocP009 BLwgHwP2SUBwkjFsE5Sk TNCzoJgsPyC4y2V3 Wx5GCPuupfi4F0CzBotx dHI+QK72SCDmWR19fLSq hENkk1cybUw8TlQyCXYk HRL0tWyrQUomj1Ty ZXI (more content not included)... [facility] C Urineon 05-18-2023 C Urine Urine Culture ordered as a result of parameters set on specific urine dip and urine microsopic results. 15,000 cfu/ml Corynebacterium species (DIPTHEROIDS) Normal skin jonny isolated [facility] Comment on above: Performed By: #### 5 [id number] ####[facility] (DEFAULT)[address] [place] [address] ALL CBC WITH AUTO DIFFon BASOPHILS ABSOLUTE AUTO 0.0 [facility] Basophils/100 WBC (Bld) 0.3 % 0.2 - 2.0 % [facility] Eosinophils/100 WBC (Bld) 0.5 % Low 0.9 - 7.0 % [facility] Erythrocyte distribution width (RBC) [Ratio] 12.2 % 11.0 - 15.0 % [facility] Hematocrit (Bld) [Volume fraction] 38.6 % 36.0 - 48.0 % [facility] Hemoglobin (Bld) [Mass/Vol] 12.3 g/dL 12.0 - 16.0 g/dL [facility] IMMATURE GRANULOCYTES ABS AUTO 0.02 [facility] Immature granulocytes/100 WBC (Bld) 0.2 % 0.0 - 0.5 % [facility] Interpretation and review of laboratory results Abnormal [facility] LYMPHOCYTES ABSOLUTE AUTO 3.1 [facility] Lymphocytes/100 WBC (Bld) 32.8 % 20.5 - 60.0 % [facility] MCH (RBC) [Entitic mass] 28.6 pg 26.7 - 34.0 pg [facility] MCHC (RBC) [Mass/Vol] 31.9 g/dL 29.9 - 35.2 g/dL [facility] MCV (RBC) [Entitic vol] 89.8 fL 81.0 - 99.0 fL [facility] MONOCYTES ABSOLUTE AUTO 0.7 [facility] Monocytes/100 WBC (Bld) 7.7 % 1.7 - 12.0 % [facility] NEUTROPHILS ABSOLUTE AUTO 5.4 [facility] Neutrophils/100 WBC (Bld) 58.5 % 43.0 - 75.0 % [facility] Platelet mean volume (Bld) [Entitic vol] 10.7 fL 9.5 - 13.5 fL [facility] TBH EO # 0.1 [facility] TB PLT 211 [facility] RBC 4.30 [facility] TB WBC 9.3 [facility] CLINISY[facility] .Auto Diff 05-15-2023 Auto [place] % 8 % Normal 04-19 [facility] Comment on above: Performed By: #### 1 [id number] #### [facility] (DEFAULT) [address] [place] [id number] Baso Abs# 0.1 x10 Normal 0.0-0.2 [facility] Comment on above: Performed By: #### 1 [id number] #### [facility] (DEFAULT) [address] [place] [id number] Basophils/100 WBC (Bld) 1.0 % Normal 0.2-2.0 [facility] Comment on above: Performed By: #### 1 [id number] #### [facility] (DEFAULT) [address] [place] [address] [id number] Eos Abs# 0.0 x10 Normal 0.0-0.4 [facility] Comment on above: Performed By: #### 1 [id number] #### [facility] (DEFAULT) [address] [place] [id number] Eosinophils/100 WBC (Bld) 0.2 % Low 0.9-4.0 [facility] Comment on above: Performed By: #### 1 [id number] #### [facility] (DEFAULT) [address] [place] [id number] Lymph Abs# 2.6 x10 Normal 1.3-2.9 [facility] Comment on above: Performed By: #### 1 [id number], [id number], [id number], [id number] #### [facility] (DEFAULT) [address] [place] [address]78 Lymphocytes/100 WBC (Bld) 25 % Normal 14-48 [facility] Comment on above: Performed By: #### 1 [id number], [id number], [id number], [id number] #### [facility] (DEFAULT) [address] [place] [address] Laramie Abs# 0.9 x10 High 0.0-0.8 [facility] Comment on above: Performed By: #### 1 [id number], [id number], [id number], [id number] #### [facility] (DEFAULT) [address] [place] [address] Neut Abs# 6.6 x10 Normal 1.5-9.2 [facility] Comment on above: Performed By: #### 1 [id number], [id number], [id number], [id number] #### [facility] (DEFAULT) [address] [place] [address] Neutrophils/100 WBC (Bld) 65 % Normal 44-88 [facility] Comment on above: Performed By: #### 1 [id number], [id number], [id number], [id number] #### [facility] (DEFAULT) [address] [place] [address] BMP Standardon 05-15-2023 eGFR Non AA >60 Invalid Interpretation Code [facility] Comment on above: Performed By: #### 1 [id number], [id number], [id number], [id number] #### [facility] (DEFAULT) [address] [place] [address] eGFR AA >60 Invalid Interpretation Code [facility] Comment on above: Performed By: #### 1 [id number], [id number], [id number], [id number] #### [facility] (DEFAULT) [address] [place] [address] Anion gap [Moles/Vol] 15.2 mmol/L Normal 5.0-19.0 [facility] Comment on above: Performed By: #### 1 [id number], [id number], 1642330, [id number] #### [facility] (DEFAULT) [address] [place] [address] Calcium [Mass/Vol] 9.2 mg/dL Normal 8.9-10.3 [facility] Comment on above: Performed By: #### 1 [id number], [id number], 5529632, [id number] #### [facility] (DEFAULT) [address] [place] [address]30 Chloride [Moles/Vol] 106 mmol/L Normal 101-111 [facility] Comment on above: Performed By: #### 1 [id number], 69613974, 8124188, [id number] #### [facility] (DEFAULT) [address] [place] [address] 36450 CO2 [Moles/Vol] 17 mmol/L Low 21-32 [facility] Comment on above: Performed By: #### 1 [id number], [id number], 1535150, [id number] #### [facility] (DEFAULT) [address] [place] [address] 64559 Creatinine [Mass/Vol] 0.55 mg/dL Low 0.60-1.30 [facility] Comment on above: Performed By: #### 1 [id number], 20604426, 5946072, [id number] #### [facility] (DEFAULT) [address] [place] [address] 20270 Glucose [Mass/Vol] 75.0 mg/dL Normal 74.0-118.0 [facility] Comment on above: Performed By: #### 1 [id number], 39045251, 7114645, [id number] #### [facility] (DEFAULT) [address] [place] [address] 34062 Osmolality 266 mOsm/L Invalid Interpretation Code [facility] Comment on above: Performed By: #### 1 [id number], [id number], 7661929, [id number] #### [facility] (DEFAULT) [address] [place] [address] 72161 Potassium [Moles/Vol] 4.2 mmol/L Normal 3.6-5.1 [facility] Comment on above: Performed By: #### 1 [id number], 08265212, 8455654, [id number] #### [facility] (DEFAULT) [address] [place] [address] 50632 Sodium [Moles/Vol] 134.0 mmol/L Low 136.0-144.0 [facility] Comment on above: Performed By: #### 1 [id number], 75341622, 5809850, [id number] #### [facility] (DEFAULT) [address] [place] [address] Urea nitrogen [Mass/Vol] 9 mg/dL Normal 8-26 [facility] Comment on above: Performed By: #### 1 [id number], 92456326, 9739392, [id number] #### [facility] (DEFAULT) [address] [place] [address] Urea nitrogen/Creatinine [Mass ratio] 16.3 mg/mg High 4.6-16.2 [facility] Comment on above: Performed By: #### 1 [id number], 91280193, 6413195, [id number] #### [facility] (DEFAULT) [address] [place] [address] Breakpoint Chem Normal [facility] Comment on above: Performed By: #### 1 [id number], 41938731, 6359008, [id number] #### [facility] (DEFAULT) [address] [place] [address] CBC w/ Auto Diffon 4 Erythrocyte distribution width (RBC) [Ratio] 12.9 % Normal 11.5-15.0 [facility] Comment on above: Performed By: #### 1 [id number], 38951360, 9910913, [id number] #### [facility] (DEFAULT) [address] [place] [address] Hematocrit (Bld) [Volume fraction] 39.2 % Normal 33.7-40.4 [facility] Comment on above: Performed By: #### 1 [id number], 79889919, 5602869, [id number] #### [facility] (DEFAULT) [address] [place] [address] Hemoglobin (Bld) [Mass/Vol] 13.4 g/dL Normal 11.3-15.9 [facility] Comment on above: Performed By: #### 1 [id number], 20961428, 7350297, [id number] #### [facility] (DEFAULT) [address] [place] [address] Man Diff? RBC Morph Only Invalid Interpretation Code [facility] Comment on above: Performed By: #### 1 [id number], 88274490, 3936256, [id number] #### [facility] (DEFAULT) [address] [place] [address] MCH (RBC) [Entitic mass] 29 pg Normal 24-34 [facility] Comment on above: Performed By: #### 1 [id number], 91798523, 8444147, [id number] #### [facility] (DEFAULT) [address] [place] [address] MCHC (RBC) [Mass/Vol] 34 g/dL Normal 26-37 [facility] Comment on above: Performed By: #### 1 [id number], 83975278, 4788706, [id number] #### [facility] (DEFAULT) [address] [place] [address] MCV (RBC) [Entitic vol] 84 fL Normal 81-100 [facility] Comment on above: Performed By: #### 1 [id number], 78056889, 9359281, [id number] #### [facility] (DEFAULT) [address] [place] [address] Platelet 228 x10 Normal 138-427 [facility] Comment on above: Performed By: #### 1 [id number], 39621534, 7408287, [id number] #### [facility] (DEFAULT) [address] [place] [address] Platelet mean volume (Bld) [Entitic vol] 8.7 fL Normal 6.3-10.2 [facility] Comment on above: Performed By: #### 1 [id number], 27087068, 0791451, [id number] #### [facility] (DEFAULT) [address] [place] [address] RBC 4.66 x10 Normal 3.70-5.30 [facility] Comment on above: Performed By: #### 1 [id number], 88778781, 5365117, [id number] #### [facility] (DEFAULT) [address] [place] [address] 13431 WBC 10.1 x10 Normal 3.5-10.5 [facility] Comment on above: Performed By: #### 1 [id number], 39319211, 7703787, [id number] #### [facility] (DEFAULT) [address] [place] [address]309 ED Clinical Summaryon 2023 ED Clinical Summary [facility] - Emergency Department [address] [place], [place] [id number] ED Clinical Summary PERSON INFORMATION Name: LIA DESAI Age: 22 Years Sex: FEMALE : 2000 MRN: Acct#: Visit Reason: Vomiting - ; 10 WEEKS , NAUSEA, VOMITING Arrival: 05/15/2023 13:59:38 Discharge: 05/15/2023 19:41:00 LOS: 000 05:42 Check In: 05/15/2023 13:59:38 Checkout:05/15/2023 19:41:00 Address: [address] [place] [address] PCP: ROBERT MARRERO PROVIDER INFORMATION Provider Role Assigned Unassigned Joelle Nava HEATING UNIT MECHANIC Nurse 05/15/2023 15:05:55 Mamie Moore MD ED Provider 05/15/2023 15:56:16 Chrissy Diego HEATING UNIT MECHANIC Nurse 05/15/2023 19:19:53 VITALS INFORMATION Vital Sign [...] With: Address: When: ROBERT MARRERO [address] [place] [address] Business (1) Within 3 to 5 days With: Address: When: Follow up with specialist Within 3 to 5 days 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 PT. has a steady gait. [facility] ED Patient Summaryon 024 ED Patient Summary [facility] - Emergency Department [address] [id number] PATIENT DISCHARGE INSTRUCTIONS Patient Information Name: LIA DESAI Age: 22 Years Date of : 2000 Reason For Visit: Vomiting - ; 10 WEEKS , NAUSEA, VOMITING Arrival Time: 05/15/2023 13:59:38 Primary Care Physician: ROBERT MARRERO Attending Physician: Mamie Moore MD Comment: Visit Diagnosis: Diagnoses This Visit Hyperemesis of (O21.0) Vomiting - ([id number]) The Pharmacy at [facility] is open Saturday through Saturday from 9A [...] alcohol and/or drug addiction problems; contact the [facility] 29/10 Crisis Hotline -Text 1AWOM cs [phone]. 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 It is important for you to follow up with a doctor, nurse practitioner, or physician?s assistant infant teacher for ongoing care. If your symptoms become [...] so we can reach you if necessary. [facility] Emergency Department has provided you with a complete list of medications post discharge. Please inform your industrial renderer/provider of your visit and for further instruction on these medications. Any specific questions regarding your chronic medications and dosages should be discussed with your primary care physician(s) and/or pharmacist. Medications That Were Updated - Follow Below Instructions [facility], [address], [place] [id number], [phone] Updated: ondansetron (ondansetron 4 mg oral tablet, [...] and drinking abad (more content not included)... Normal [facility] Morphologyon 05-15-2023 RBC morphology finding Nom (Bld) Normal [facility] Comment on above: Order Comment: Order added by Discern. Result Comment: some platelet clumping observed Performed By: #### 1 [id number], [id number], 4129208, [id number] #### [facility] (DEFAULT) [address] [place] [address] UA [id number] 05-15-2023 UA Amorph. 1+ [facility] Comment on above: Order Comment: Urina lysis Microscopic order added on by Discern Expert Rules system. Performed By: #### 5 [id number], [id number], [id number] ####[facility] (DEFAULT)[address] [place] [address] UA Bacteria 1+ [facility] Comment on above: Order Comment: Urina lysis Microscopic order added on by Discern Expert Rules system. Performed By: #### 5 [id number], [id number], [id number] ####[facility] (DEFAULT)[address] [place] [address] UA Mucous 1+ [facility] Comment on above: Order Comment: Urina lysis Microscopic order added on by Discern Expert Rules system. Performed By: #### 5 [id number], [id number], [id number] ####[facility] (DEFAULT)[address] [place] [address] UA RBC 3-5 [facility] Comment on above: Order Comment: Urina lysis Microscopic order added on by Discern Expert Rules system. Performed By: #### 5 [id number], [id number], [id number] ####[facility] (DEFAULT)[address] [place] [address] UA Squam Epi Moderate [facility] Comment on above: Order Comment: Urina lysis Microscopic order added on by Discern Expert Rules system. Performed By: #### 5 [id number], [id number], [id number] ####[facility] (DEFAULT)[address] [place] [address] UA WBC 5-10 [facility] Comment on above: Order Comment: Urina lysis Microscopic order added on by Discern Expert Rules system. Performed By: #### 5 [id number], [id number], [id number] ####[facility] (DEFAULT)[address] [place] [address] UA w Culture if Ind Standard on 05-15-2023 Breakpoint UA [facility] Comment on above: Performed By: #### 5 [id number], [id number], [id number] ####[facility] (DEFAULT)[address] [place] [address] Color (U) Yellow Normal [facility] Comment on above: Performed By: #### 5 [id number], [id number], 4272838 ####[facility] (DEFAULT)[address] [place] [address] Culture? Indicated Invalid Interpretation Code [facility] Comment on above: Result Comment: Resu lt created by rule GL_MAGR_ADD_UA_CULT Result created by rule GL_MAGR_ADD_UA_CULT Result created by rule GL_MAGR_ADD_UA_CULT1 Result created by rule GL_MAGR_ADD_UA_CULT Performed By: #### 5 [id number], [id number], [id number] ####[facility] (DEFAULT)[address] [place] [address] Glucose (U) [Mass/Vol] Negative Normal [facility] Comment on above: Performed By: #### 5 [id number], [id number], [id number] ####[facility] (DEFAULT)[address] [place] [address] Ketones Ql (U) >=80 Normal [facility] Comment on above: Performed By: #### 5 [id number], [id number], 4759854 ####[facility] (DEFAULT)[address] [place] [address] Micro? Indicated Invalid Interpretation Code [facility] Comment on above: Result Comment: Resu lt created by rule GL_MAGR_ADD_UA_MICRO Performed By: #### 5 [id number], [id number], [id number] ####[facility] (DEFAULT)[address] [place] [address] UA Bilirubin MODERATE Abnormal [facility] Comment on above: Performed By: #### 5 [id number], [id number], [id number] ####[facility] (DEFAULT)[address] [place] [address]19 UA Blood Negative Normal NEGATIVE [facility] Comment on above: Performed By: #### 5 [id number], [id number], [id number] ####[facility] (DEFAULT)[address] [place] [address]136 UA Clarity SL CLOUDY Abnormal CLEAR [facility] Comment on above: Performed By: #### 5 [id number], [id number], [id number] ####[facility] (DEFAULT)[address] [place] [address] UA Leuk Est Negative Normal NEGATIVE [facility] Comment on above: Performed By: #### 5 [id number], [id number], [id number] ####[facility] (DEFAULT)[address] [place] [address] UA Nitrite Negative Normal NEGATIVE [facility] Comment on above: Performed By: #### 5 [id number], [id number], 7090420 ####[facility] (DEFAULT)[address] [place] [address] UA pH 6.5 Normal 5-8 [facility] Comment on above: Performed By: #### 5 [id number], [id number], [id number] ####[facility] (DEFAULT)[address] [place] [address] UA Protein 30 Abnormal NEGATIVE [facility] Comment on above: Performed By: #### 5 [id number], [id number], 7278750 ####[facility] (DEFAULT)[address] [place] [address] UA Spec Grav >=1.030 Normal 1.001-1.035 [facility] Comment on above: Performed By: #### 5 [id number], [id number], 6996620 ####[facility] (DEFAULT)[address] [place] [address] UA Urobilinogen 1.0 mg/dL Normal 0.2-1.0 [facility] Comment on above: Performed By: #### 5 [id number], [id number], [id number] ####[facility] (DEFAULT)[address] [place] [address] Urine Source Clean Catch Normal [facility] Comment on above: Performed By: #### 5 [id number], [id number], [id number] ####[facility] (DEFAULT)[address] [place] [address] hCG Quantitativeon hCG Quantitative 599166.0 mIU/mL High 0.0-0.6 [facility] Comment on above: Performed By: #### 1 [id number], [id number], 9450456, [id number] #### [facility] ([facility]) [address] [place] [address] Coding Summaryon 05-02-2023 Coding Summary HTMLBase 64 VgrywhyzHPx9nZa+PGhl YWQ+ZQ6ASGAvV07snCUy sL5iL1UCMHqIOcsbMTKN JRaPOuUtlfUbPU0itPDd ZXJu IC8+XT9fJVYeZthmlWNd a5V5hPD8Z26fsn3pGDnv vAX6PUGpPaXzwrtbo5xq mRb4YAruIjfpOjRp HJZkrU52KZU1vM36Vp45 pWXshMBbc6knnWp2PpJx WBRpWCM2xGguTUppe1Jl RNXeW41qrJBio1Y8 IGNvbGxhcHNlOyBlbXB0 zL0qQOfcbdobu8zzuvdm Oma7jz01oJAak0I3iTM8 V8QohiC6QYFchQZo NyrgfVDGzO8zwegei7gm yzfxByVtDQKkQHo5ZJc3 BFMotSavQaOsWX43MDS7 CMMyyoKdL5WnXEDp jYdeLjT9e1X9Uz2OS5ML SrybD0KTTXUNXZmiyOH+ UX63ov55Z4DdTmgyArt8 ZOCwARK1iSC6gX3h ZUMqTXell7Z5qNU9N5Xk zqHlwe6kv4egTODyZVai B14dtFRhq0W4OSWdlKV1 DDQidFwrQhZlfD70 Oyc+UIWttUbpm7DmDmpm p0nzl2cbuOx1BgwlUYAq acXwxBplFVM8q1QyEh6w FSJyyRH9bZS9nV4k XdUgHbQ5LTgtH509BaQx vYBfEykrL49rO5DunFA+ XXSlTtc6XZGxeEbxVM0l V7FlSIMvkynqjXPt jSccBR2qYYRocncpMQUy fM2tTCRwE1w4HhMhJqB8 IMwvP5SrFDZwhirpSv03 gQ5sDyPuYqG4OAar B8SfjxF6YSXzdQDqCVui DLA7M37uw3N7HIStCCAj WDI8rUY3jO7dcDlmarsj bGVmdDsgdmVydGlj RNekSAdyQ428WLNmsRia PkNvZGluZyBEYXRlOiAg MDEvMjUvMjAyNDwvdGQ+ DHUvHJF2dWtxXVZt mUZkJJiwQf3foJvbwOkg PU4sFLLruhfoWDRdpT0v JCMaaUVkvUbeLN3kQJLk ygccr142IwMgKBP8 VUDuwSPoW7KytV8jNjKx NMKsWQReV2QseUZaQBwg F429LGwgEqD2WMHmvrPj Y7KsDWSzuZmzQfZ0 y1F9Ye3Og6RbrcluY1Su wCItGjHmTztbOVr1K9Qk PjwvdHI+SY81WHZsJY14 WYp9HZE1dBfuIMjl DMEjM6PldB3uIjFsOGEt ZGRkOyc+PHRhYmxlIHdp ZHRoPScxMDAlJyBzdHls KN6lXm2sTDCzMWEa pJxiqWVrBtTzt0ztTCZe XZeuJQ3psBunD4TqvUK0 SINlt3g1Gf29I63oM2Ge dXA+YCHsfRM7tZI4 mJ9qPdVlNaG8PDqqB628 LiEmjRJqYtpxr6gcv6hd qOw1DhO0DHEfqoYpzOdk UKF3w8TdRm05E19g IHdpZHRoPSIxNSUiIHZh eYwlob2abT1gNc4+PGNv nUA4hCZ6zX2cKvFqUhA0 PTbpI182SjErkZMy Bgclv3qzj4ivzXp3AmSh CJBmkiLznMeyFDR3r5Ss Hw58B4DncZpdd2VuBrb4 hl33oQPmr4J0mAH5 A5WjFDQknatsxGIylKjk HZ4dJOFhqlgaEABnlU7q QLEnN4u8NyHlUaF2AFpk W3LaxtE8YNEzaOIj ECQwvGKElA1nbgdpz7qp ytzpImQrVHMzZPk6DZx9 YCRdcBjmGuCtSFL8SpG8 TNY3eVHhpH8xjDjh shtfnN3tKcc+HGY5jXOj yQHYUO9mMvdadRN+PHRk GSM5zUvhDTliQFQzqG7m LRVbL1f7XjVcLbZ4 QPswO2VfiwN3PFOdfGBg QKLnwOFWfI2ytikqj8by xwogBsNaLALeRKr6FQm5 LWFsaWduOiBsZWZ0 AgJ3PXI7gBUdnV3fbYjb ztdthI9xWir+QmlydGgg WQJ8TXi8Z5PpUyr8NJLe mPxkLA0qjOGxNHcn Fx0ksNrlfYxmAZ3qJAHi fyzzz224MqEpt2ypKPJy zSXeKHmgVAJ6L57ys0U0 KGVgNPAsLZY3nSD2 kB2thGqvhwsjvOWdoOyv tyMqhBrgCGghZNknT563 QYKvtAxeRhAhNJw0Y2Zd Bbb7EKWttGooVU4d tBQkBPilFq8zoVfcqOlv OL9aUIRftivkw652ZaPp f5ssTLTaxFNaBNaeVGP9 V23wc8R3RBUeMFLd MXB6xOR1qO7sqRgasmjm bGVmdDsgdmVydGljYWwt ZKpbO903JOPepRihZsQr kVz2Q6WcKrg0CXKi dHcuBI7drEXbQSirXh2i kZdecXxcWX9eCTQzdvdo b721WsCjf0tkNQSfvSOi FWszWTF1E85wi5Q4 BUMpMIXpEJS1cWH3rI7w bGlnbjogbGVmdDsgdmVy uYmtCDisUCbaH211GAMy cDsnPlBhdGllbnQg SWlvLAn1T7MpVecrbCQ+ VT09MAAeZS21dFKgfXVb w5qfmEh2RxMwZCKqXZV3 oVprUVeft5QtWJHp U21rzRLcq2R1NRHzaNdw hGOoIbSjlOD6sE1dFWxg icngr1oosxulClmzt0rm mt31iR29B45vXLgx ZHRoPSIzMCUiIHZhbGln bs2sjC0wKx3+PGNvbCB3 gEZ4gU2bABBxUmE8PPkn B638IwSsjWBkIrap s8rok0norGg8KeH3EHCv lwBnbJngCZA1p2DgSl63 E82bYTbwBXEiKCLcWNVt SYTmcLvsuv8raQ2s Ii8+SXLezZW2bAS0zH1v GwDtYoK7YMrdS002EcCw dUNkVuqtD26jU0AnqKP+ HXFzBll0VQMazQbc MV6vdLIvEYqfPg2rEGT4 OeCrUyWtKCylZ2MbNVDv zvijvquziKE5AECzHKZb eS19Wn5joIbsEONf kHHAnE3blklln5ulcjup UiQiWQVpRJr6IOj4USVu sZhrXpZtAHA1WuW9KPS3 xTRiuV6dsQnqahll tY1tR5KlCRVqljjmVk64 yB5oYaEmNjS0YGxuMzo+ J0fDWhKIDOecC0hYYXGO WYxBTZ2MSUlpjJA+ XGVwRVP5pWyaCPosLDLj aY7hYUNxY5w5NiRjTwJ6 WFbdE2VmIMGwnjkcEn88 bW5oDgWjFiH7PGaq E0BnfdF0ADOmhFHnSWoh FXN3N68pb4N0BSHnPWFv BKY1uNV2tM4tcRevzsca bGVmdDsgdmVydGlj IWgkGGftM510PZKkeNzm KtS6JpGiIcReOYM0I3Cb Uin3KQJxcKfjVR8ifDMu XXquPv1wnZcoaLmv KU7mZAUnhzklCUCokX3z VRAkrRYlwPazPZ9fAKRn ryxwl936HnXcQFS2SWTx aWZsY7HziB5dJcAo ZAIrHHTkA2WmdWCfXNri R516IBrdGlD6PMQzsgVq I6OxDQXvnQfdLcS1z4H8 Cv6dBBJHSQIdgkmm dGQ+PNUoXFH1qPwpKBed PSClxA9bMSZvW0i0TzEt EwS1TVybO5TeSYMwnuyf Yj45sP1zGuXoReM8 LPwrO5NfczH8RGAtzNFr VGcbRKM9M66vy1U7RVBb WCWkBBG8xTG5tR8mfNhb bjogbGVmdDsgdmVy aFtoNNelEUeeO312IPXq cDsnPkZFTUFMRTwvdGQ+ GXJuGLX9mYivEXbrEITq yS8mSWGzX0d0YyMo XyW4AFktZ4KaMIJxjrmf Ez81bZ0mMjMtBlV5GZve H7OctbU7OATbxEOlPQlf RSR7E42vw5B4JOQm PMUhABL5zIR7wS6oqXfj bjogbGVmdDsgdmVydGlj WNykZQlaN206GKBfgYah GgTzFGDaYD4tsDek dGQ+IY16ie53D7SvKrqg Kth0VKYmUBI8lMM3kD8v YGYdXKjwz4A7hWF2J5Qf bpYtbr3yr0giOVWf GTdmM36siWYxi1K2IKKm gEM2UXHtrDkeSsNobB93 Oyc+HWVpaVwyv1KgTifu n7pna8tgdPc8IqQy IAQvtwHqzOmmMLQ0z2Yh Yq76U50uHYjsHRAzXLZx ZUGdDOOryMtelb4jrL2k Ii8+KKWsbGU6rWD6 dF6oQuAxWfM8ECejP446 NiKlgRQpFhwya3mya2si jLb2YwCgQKLcyoLodEuz VQM8r5TeBm81A0Gn dIgrg7PzXft6gj02wYJv f8V6qGD6O8JdFAJvnntw cOLdsAjzYY7zBWWfvlfq OIMppA6oKLEwD4a3 UeAiJaR4NHkxB5ZurcG6 DZRwpDRxZIDooVDKmE6t jkyze2hkzlkgRhPwANWa PDi9FYs6XJFscJwj FxTkNAK0RkX1MNY9dRSj aV6kfMuktgqwwY2rTei+ EMr2z3pbsFGdMQ7axAF7 QU39IU87vKLip1W8 vBR3W5VyZKLzsevvvmfx xFR3LDZgXWHxqT92Nt9i tSfaCh4oVOGyUWB4JGBk cKZyN6QbqY1hZiXh FSLcEYPlK3RuoDQbBPpb T834TMnrSoZ7NKImpvWh E7YhTALyfMioRtU0o1S8 Zf9PPP85TP32CU81 mTXrp3O5oDF4O0GuWMKb gmudcxyhzYE9HXYiYLIx eR41Rz6qdEziYi1iKFYi RFW6JWVuuYIkW6Tv nO6kSxUbXTKtKGBgM6Fq jCAlGEzfK199PIvdUoI2 KVFjyvZcP3LjZEGqwEfy HmX4x2L8Fr8UUv88 EV32ZI76oWGqd4N9qCS8 D1TmAMZmogtizlgfjEK4 JRHlVWMmrC88Eh6mvLwt Fz3gNUVhBKI4LPEk kHLqV0PhrL6rGaIbVUUd ZKIsA4NsaQOkESomU328 BVjdGzT7GGMqreMiR7Ji TZFukGfjFcM9j5H2 Qy8TCAaigvv4X4QaNqwp dHI+YP41BTNeET38tTGd aMGod8mjiWa8ZtCbVFEy CEU0iDrsJLure2Wj ZXI (more content not included)... [facility] Coding Summaryon 05-01-2023 Coding Summary HTMLBase 64 NjlmatybDJn2zNn+PGhl YWQ+WL1IJVDrD40hsANy fI0fZ2WFSYyWSehrZVMJ FGaCSpGqphXmJJ7xeHIe ZXJu IC8+FW3vNYPwVpljmFPf k6K9pAZ0X85lwz0eEAvg dPN3CADiKoGvblotb7he qQf2RYvyZkiqYtDj IQKbsO64JZP2fX91Cy53 dKDrlUTfd1sfkWt6UfKy BGYcUWB4tVzmHLyfb4Fw IUBkO20bdDRfm8M5 IGNvbGxhcHNlOyBlbXB0 yA5eOHligdrug6xnpvcb Xwz3xh32sATks8Z4uFU2 X5WlzoW8PHOcgVYj FdlvfCYKjQ8ijoqeb0ro shwhYcZzMPPoPUe3AGu8 EIShxLquVlRhXH26EKL7 FBCbizTvL8FvSEPa jTfjSnR8a1Z4Kt8DI2IS ObkvJ2OGBSHNYMqnrYE+ IM31oo76C3GsOiclNqe6 MLMzAKL5jRC5hL3x TWWyDCxwe2G8qDA3K2Uq ywSozd8jh8ycAEBcXXtg W25zkNJwn1A1ITUddPB4 YFOhfOtzBxGasL89 Oyc+PBVbpVcnj7YtYhsw q2bpu9dgeTi4ZltpLAOw flWrqPgwVXQ3i2EvXj8l BBWooWM4sZW6bY5r CiJzYjD1JRigO220BjKi mVZqOkrpT42tR4JpnLS+ KWAaNfj1OYNibSyoFO7e O6FgDQYuxmatrDMe kQdiGY5uOMYdrfotOPOx tV6pYEDcJ1m1OgWnJhD1 BEwaQ8TcVMNhocysNb46 uE0sXuJiUvQ4LKnj R2XqjaT3RGGqjDRtBZtp ETA5V50mj3W8KWSdDQTl BHT7wMI4oC6toMpvqlfq bGVmdDsgdmVydGlj GQcnPQgcC097PSFnnUbq PkNvZGluZyBEYXRlOiAg MDEvMjQvMjAyNDwvdGQ+ TDCeYKZ9iBmyZPZf wLPlNKpuSq7csRhujKxe DI9eZLXtdabnNPQxcQ4w GDBcqMJgaNzuGE3zJGVp mrfgr144XoSeVQP3 EBCsiRNqE3QtkQ1kMoDn XKNtZLZhG1VmyGFvBOep H482QUurHnW6KMJbgkEr E5QnTUUlqMzhXgO5 s1D9Xo1Fj7AoebquM2Ew nEHhWmPdVvohYSp2D2Dt PjwvdHI+VI83BOKrOW66 KBj3JWN2vAukEPwm BJGzY9KspB6wGwYrSHCr ZGRkOyc+PHRhYmxlIHdp ZHRoPScxMDAlJyBzdHls BR9ePs3gPFMfJSWw xIlbcBReUwDfm3zkTCEd DArcCG3pjRmdK2QzoAD4 VBZlf2w3Fv16O25vB0Yh dXA+ABMpvZI2nZB3 iX7dZmVtCfM4ZEkxN364 PxOejQGnQlwih5xlz0lo kHe6EjI8URNmtiLblNjw DBT2u5GrPt88S00g IHdpZHRoPSIxNSUiIHZh xDsbwj4tyA0aFo0+PGNv dLY2vXU9nK3kBlQjZzZ7 LAizB391SmKhmSVf Xljio6jgi0hjdVx3ZnCo YXRrpaRerItrYNM9d6Dd Cr38Q4FciCerr1ZiJlx1 lo89vXYjv7B6wZR0 R9TdXHLkdytgjIPyeNmq WZ2bDHJamfouREFbqH0z KEFsN7g6PoRqDyV9ATsa Y8UlgtX2EMPacRFv EDWypXNMqI9uvovdc7om uqwjVwVzUFHtGRb1HNh7 ALBssXevReOlGRL0YeZ7 KSZ4uMGmcS6lcDvk vqlduS9sCvb+KKO3uWDt qHTTEB1eOhnktBX+PHRk ZFH5sXptZUwiHWSiiZ9n IUHpG2z9DsVxOpQ8 HRdzG5FukdA5OBPmeUCi VWJcgTGYgV9bidkli5av huiwPnBcPBDkLEr0TFd5 LWFsaWduOiBsZWZ0 JnS2HNC6mTIpaT2uzGgz wyowcW6yRwf+QmlydGgg IEW9EJt2Y1AkDea7FUDj wFnqNE2joLVqNTcf Fk0eyAixuVcfTB3oBKVr appul868ZqLrn8zoCXUw sAOfYYvdUSY9Z19ft7A4 DIRrRQFyTKZ4lWB9 uZ0atFqwwjlswYOhrEtv jwHpiOozMXvlEHiyE080 VQBjeKkoAeOzNCf8G0Jl Wqz9OLAayMceOG5i uAPxZDacFz0qlKoidWja BT5vNSZmwghlc683QfHv h4vyYJTlfCYoVQboQIE5 G38ti3Z8ZUChZDBp MUZ2eYC8fP9lxBemupry bGVmdDsgdmVydGljYWwt MKdxK555UVVtwJpcJuOc xXa6F8BvHcd0FYJh hCdpKG0gyMAtIJjaPo5p iAtctVkaPX4xQIWrzcbc z563IlMok6emIYEgcBIg FDxkRJM4L78kp7D1 CFEqLGCuYXN1zZS5dZ6v bGlnbjogbGVmdDsgdmVy zJmfNTdoFEhvT005EAVh cDsnPlBhdGllbnQg SEqhRUo2P4LxRpsyjSV+ YN87NFZxZK69ySRyyAMh p7mlyNo7MvPdLBNrLAF0 uSpcVMmxj0WhUKEw J79ksSXfp2M2ICTerXbi rTDsTgPmcLT3xN4uWPzi bzhsm2uhiwliWplmb3zj av01dG06J85rINsw ZHRoPSIzMCUiIHZhbGln ss1cpB6qUa6+PGNvbCB3 wNF6dF9uQJHzJkM6LJkf N957ExGnhCOrZakv l1wgx5mzmTb0PbW1JJDe zyUedPwfEWM2e2ZiTu46 E81sSTfiRILuPRDbPOCy QPCphYgkti2niD0l Ii8+RHZkhHC0gES9uF2d BvCtQhD0SIlaJ485TnHc lYYpHnfkI08sV2VznBW+ BUWjJxu3UGVpaBrd FI7srLDsRMkpUj4xOBS2 ZyXlEdXwYYegM7GoPRPk nbndggvteBT9OHLjHSBs sP44Kq4nvJhfGOBh yEONfB2yqjskq5pdrrrg QhIdFPFrRBp8OAg8PISf xKmvWhVwTYK7AdL4IXX7 iXAaxL5tqKojnpuv gY1uB6OlMBOwmtfeQx69 sM4pAsZrOuH9SWkiIjx+ H0qKUnZRDShgP3lHZIWG HIqXJJ1FQIoqmAA+ LZXaQTW7eJhpFJyoYZFu kL0iEGFpK8k5CvUeCuL1 NPgxS1KpUBKonjhdVk92 pK9iGdOgRdN1MZwa P0EpclN7JOTpqNJeXLdk LAX6E58cu2I9YEKvYGSn DFX9mNQ3fI5beTvqhsqf bGVmdDsgdmVydGlj AMpcHIkwQ992WLEjwOpp QpZ2MvKjSkXnGIP4G0Ji Qqb1KPIlhRcaDI6mrXWp INvwKp4nkAcctYzz PX6mMXWxzqowDOAvpZ5e QGUivQQvgLxdOA4aTQJz jqzep865YdIpWJL7VAVr rLNdL4BpiR1jKhMi VNImBHDyN3MbeKWmLDfp B762RPqzHhZ3JOBvvsDp G1ArZQAlqMxjOuR0n4E5 Wt2oJVURHWZmadaj dGQ+XVNqQTF5uOmoYPaq GDSpcY6wFJGfK7e1NeCu SpQ6WIbbQ6YjWUXuspmj Jv93wD2sNsNdAuQ9 RLuaS6AkunV2WEUllTFr RMdrBIC5V34xq9A3JTLd XQPrNNO7xZX9dR2pmInh bjogbGVmdDsgdmVy iMbaWKlxZOaaZ293CDUh cDsnPkZFTUFMRTwvdGQ+ WXPzLVX7gKurEYkqQWCt bL2iRYSiF1k5YeGx LwD8SFlhN4QvREAamoub Ri14cP5dWcGaWjY6NFhi V4TfqwN8DHEzeERzPJql WGR7R07le8Y4DAYa MRGuGPX2sAR3aS6tdHsf bjogbGVmdDsgdmVydGlj ZIkxXFbrA556HXOjdQgi Eq9KJF07HK02F9Ox PjwvdGFibGU+PHRhYmxl IHdpZHRoPScxMDAlJyBz oJddLQ3lVv3yVGNnNCWn hDrxxDKoEdAvs7ld HOMjAKplCY2zwTmfS6Uz xRQ7NNTvl0e4On07M95c F1AjlIA+WINmmIY9bMW3 pB0qOcGoXuQ9UFay T458LjVurCJtGjyvg6jo k9tzlSc3SgYtLZFqlcUj oAqjCQM6p2OjYl90Y76k IHdpZHRoPSIyMCUi YNLpkYfkde4awZ1wAt1+ MJJqdLE9jSR0lY7gGuOl UqI2JHuhZ030FqMmsIYu HyzlZ10nL4AduQJ+ WFNxTac2YNNsdIgjGU6p lPSdBRbcKr7hMMJ0GwYt EsUcCWykY7HmHKRpqjjh csbwbCW9FSUyTCOo rC86Go5wxPhxTd2kQHQw QKQ2GJQwtVRlD1JnoT5k FwXqOIZkNOVgW1UabNRd IJknW347FOnkPqX7 SZYgumNaV1TiMRRdvFfi CsA4w7L4Ka2RnOulnYEd RV7wJcXnRQq0I0KlEjc1 IWGvxYcqFA4bgADb HRjnYv2guUolpOjjNV1n LRKpyzkap573SuRhi3br ZTDnqYQvNOtkQYX7C76u z9T9PCSfZBSuYQO2 dVF4sI1kjRrsvtybiZNt dDsgdmVydGljYWwtYWxp G802SLGqkCfvPtLAZzm9 D7BvCmk0RMCdbXwd OZ7laBYpAVhmAr5gyXyd kIalNF6oBOTkdjezh249 WbQqm9hpQTOhcJZqSMaj VMX5P41ah1O0ZBLy KFVdKQY5bKN9lJ0gaCom bjogbGVmdDsgdmVydGlj TSezIXqwT333YIGugKqp Jl1FShv9P7PyCey6 UPWaxDbwKX0wkEVrRVqn Qv3nwPesmEaaLK5cPGWi ovqqg560YsNfw3gjDDTt qRNjINoeBJZ5D25p q3V0YQPkUKUdLZM9xAK2 bY3foTmwvushnIRvkBls xiQwkTyqXLxrARfzT419 IHRvcDsnPlBheWVy OjwvdGQ+MP92ad48U9Xg FqcwRjb7GXZgOVP9vOU0 fP7sWVJlLLjlv2F6mGW8 L6JbygBfqm9ag2qw YXB (more content not included)... Normal [facility] .Auto Diff 104-15-2023 Auto [place] % 8 % Normal 04-19 [facility] Comment on above: Performed By: #### 1 [id number], [id number], [id number], [id number] #### [facility] (DEFAULT) [address] [place] [address] Baso Abs# 0.1 x10 Normal 0.0-0.2 [facility] Comment on above: Performed By: #### 1 [id number], [id number], 8948144, [id number] #### [facility] (DEFAULT) [address] [place] [address] Basophils/100 WBC (Bld) 1.0 % Normal 0.2-2.0 [facility] Comment on above: Performed By: #### 1 [id number], [id number], 1526395, [id number] #### [facility] (DEFAULT) [address] [place] [address] 19229 Eos Abs# 0.1 x10 Normal 0.0-0.4 [facility] Comment on above: Performed By: #### 1 [id number], [id number], 1485144, [id number] #### [facility] (DEFAULT) [address] [place] [address] 93021 Eosinophils/100 WBC (Bld) 0.5 % Low 0.9-4.0 [facility] Comment on above: Performed By: #### 1 [id number], 81315255, 4926499, [id number] #### [facility] (DEFAULT) [address] [place] [address] 12912 Lymph Abs# 2.9 x10 Normal 1.3-2.9 [facility] Comment on above: Performed By: #### 1 [id number], 87069260, 6438901, [id number] #### [facility] (DEFAULT) [address] [place] [address] 22593 Lymphocytes/100 WBC (Bld) 30 % Normal 14-48 [facility] Comment on above: Performed By: #### 1 [id number], 81230081, 9985498, [id number] #### [facility] (DEFAULT) [address] [place] [address] 15530 [place] Abs# 0.8 x10 Normal 0.0-0.8 [facility] Comment on above: Performed By: #### 1 [id number], 16664055, 6447261, [id number] #### [facility] (DEFAULT) [address] [place] [address] 52470 Neut Abs# 6.0 x10 Normal 1.5-9.2 [facility] Comment on above: Performed By: #### 1 [id number], 26933934, 8238188, [id number] #### [facility] (DEFAULT) [address] [place] [address] 12249 Neutrophils/100 WBC (Bld) 61 % Normal 44-88 [facility] Comment on above: Performed By: #### 1 [id number], 48152420, 2138519, [id number] #### [facility] (DEFAULT) [address] [place], [place] [address] CBC w/ Auto Diffon Erythrocyte distribution width (RBC) [Ratio] 13.4 % Normal 11.5-15.0 [facility] Comment on above: Performed By: #### 7 084955, 53814898, 3778470717, [id number], [id number] ####[facility] (DEFAULT)[address] [place] [address] Hematocrit (Bld) [Volume fraction] 40.7 % High 33.7-40.4 [facility] Comment on above: Performed By: #### 7 401776, 97476036, 9756410147, 9541432041, [id number] ####[facility] (DEFAULT)[address] [place] [address] Hemoglobin (Bld) [Mass/Vol] 13.7 g/dL Normal 11.3-15.9 [facility] Comment on above: Performed By: #### 7 101942, 79146225, 6952080910, 2272123920, [id number] ####[facility] (DEFAULT)[address] [place] [address] Man Diff? Auto Invalid Interpretation Code [facility] Comment on above: Performed By: #### 7 355904, 99713943, 8966525879, 3645748416, [id number] ####[facility] (DEFAULT)[address] [place] [address] 93774 MCH (RBC) [Entitic mass] 29 pg Normal 24-34 [facility] Comment on above: Performed By: #### 7 701827, 60468241, 6954107333, 2182695493, [id number] ####[facility] (DEFAULT)[address] [place] [address] 13524 MCHC (RBC) [Mass/Vol] 34 g/dL Normal 26-37 [facility] Comment on above: Performed By: #### 7 880126, 69799418, 0305895035, 7236187215, [id number] ####[facility] (DEFAULT)[address] [place] [address] 08606 MCV (RBC) [Entitic vol] 86 fL Normal 81-100 [facility] Comment on above: Performed By: #### 7 030747, 65413851, 1709130120, 8154858383, [id number] ####[facility] (DEFAULT)[address] [place] [address] 98522 Platelet 430 x10 High 138-427 [facility] Comment on above: Performed By: #### 7 844541, 43521150, 8117285279, 7080876206, 6596807224 ####[facility] (DEFAULT)[address] [place] [address] 08793 Platelet mean volume (Bld) [Entitic vol] 8.5 fL Normal 6.3-10.2 [facility] Comment on above: Performed By: #### 7 909948, 49207272, 3431547285, 2420684190, 1396239070 ####[facility] (DEFAULT)[address] [place] [address] 72025 RBC 4.75 x10 Normal 3.70-5.30 [facility] Comment on above: Performed By: #### 7 450839, 93405188, 7541523702, 4708939784, 7164673523 ####[facility] (DEFAULT)[address] [place] [address] 28296 WBC 9.9 x10 Normal 3.5-10.5 [facility] Comment on above: Performed By: #### 7 766907, 47077477, 9350600487, 9098766193, 0300265268 ####[facility] (DEFAULT)[address] [place] [address] 31936 CMP Standardon 04-15-2023 eGFR Non AA >60 Invalid Interpretation Code [facility] Comment on above: Performed By: #### 1 [id number], 73850503, 4360029, 7586953969 #### [facility] (DEFAULT) [address] [place] [address] 86789 eGFR AA >60 Invalid Interpretation Code [facility] Comment on above: Performed By: #### 1 [id number], 00401115, 3803866, [id number] #### [facility] (DEFAULT) [address] [place] [address] Albumin [Mass/Vol] 4.5 g/dL Normal 3.5-5.0 [facility] Comment on above: Performed By: #### 1 [id number], 81419989, 2538104, 4107739738 #### [facility] (DEFAULT) [address] [place] [address] Albumin/Globulin [Mass ratio] 1.2 {ratio} Low 1.4-2.6 [facility] Comment on above: Performed By: #### 1 [id number], 94342308, 7342964, 7810019377 #### [facility] (DEFAULT) [address] [place] [address] Alk Phos 68 IU/L Normal 32-91 [facility] Comment on above: Performed By: #### 1 [id number], 95561056, 3275973, 7705646035 #### [facility] (DEFAULT) [address] [place] [address] ALT [Catalytic activity/Vol] 34.0 U/L Normal 14.0-54.0 [facility] Comment on above: Performed By: #### 1 [id number], 48995594, 6617671, 5708848297 #### [facility] (DEFAULT) [address] [place] [address] AST [Catalytic activity/Vol] 27 U/L Normal 15-41 [facility] Comment on above: Performed By: #### 1 [id number], 41594352, 8656158, 6098319093 #### [facility] (DEFAULT) [address] [place] [address] Bili Total 0.7 mg/dL Normal 0.3-1.2 [facility] Comment on above: Performed By: #### 1 [id number], 89097702, 1031539, 8743482260 #### [facility] (DEFAULT) [address] [place] [address] 61869 Creatinine [Mass/Vol] 0.77 mg/dL Normal 0.60-1.30 [facility] Comment on above: Performed By: #### 1 [id number], 07554776, 3327509, 9756351206 #### [facility] (DEFAULT) [address] [place] [address] 80724 Globulin (S) [Mass/Vol] 3.6 g/dL Normal 1.5-4.3 [facility] Comment on above: Performed By: #### 1 169478723, 95696036, 0853165, 4677509563 #### [facility] (DEFAULT) [address] [place] [address] 66265 Osmolality 269 mOsm/L Invalid Interpretation Code [facility] Comment on above: Performed By: #### 1 [id number], 99028537, 8957116, [id number] #### [facility] (DEFAULT) [address] [place] [address] 51496 Protein [Mass/Vol] 8.1 g/dL Normal 6.5-8.1 [facility] Comment on above: Performed By: #### 1 [id number], 83208810, 4442105, 7142489607 #### [facility] (DEFAULT) [address] [place] [address] 21222 Urea nitrogen [Mass/Vol] 10 mg/dL Normal 8-26 [facility] Comment on above: Performed By: #### 1 [id number], 57418500, 1587893, 0539516959 #### [facility] (DEFAULT) [address] [place] [address] 67028 Urea nitrogen/Creatinine [Mass ratio] 12.9 mg/mg Normal 4.6-16.2 [facility] Comment on above: Performed By: #### 1 [id number], 26647375, 9901871, 1736852112 #### [facility] (DEFAULT) [address] [place] [address] 64010 Calcium [Mass/Vol] 9.0 mg/dL Normal 8.9-10.3 [facility] Comment on above: Performed By: #### 1 [id number], 13227647, 7933143, [id number] #### [facility] (DEFAULT) [address] [place] [address] 70919 Chloride [Moles/Vol] 104 mmol/L Normal 101-111 [facility] Comment on above: Performed By: #### 1 015245521, 20602759, 3316129, [id number] #### [facility] (DEFAULT) [address] [place] [address] 04993 CO2 [Moles/Vol] 23 mmol/L Normal 21-32 [facility] Comment on above: Performed By: #### 1 [id number], 56739647, 3422155, 0656214992 #### [facility] (DEFAULT) [address] [place] [address] 47792 Glucose [Mass/Vol] 94.0 mg/dL Normal 74.0-118.0 [facility] Comment on above: Performed By: #### 1 [id number], 70799546, 6757217, 6297061002 #### [facility] (DEFAULT) [address] [place] [address] 07181 Potassium [Moles/Vol] 3.9 mmol/L Normal 3.6-5.1 [facility] Comment on above: Performed By: #### 1 [id number], 41146095, 5197726, [id number] #### [facility] (DEFAULT) [address] [place] [address] 37439 Sodium [Moles/Vol] 135.0 mmol/L Low 136.0-144.0 [facility] Comment on above: Performed By: #### 1 425144872, 73953990, 3441958, 1364808145 #### [facility] (DEFAULT) [address] [place] [address] 95483 Anion gap [Moles/Vol] 11.9 mmol/L Normal 5.0-19.0 [facility] Comment on above: Performed By: #### 1 [id number], 83714272, 5786608, 1270361393 #### [facility] (DEFAULT) [address] [place] [address] 58197 ED Clinical Summaryon 2023 ED Clinical Summary [facility] Emergency Department [address] [place] [address] ED Clinical Summary PERSON INFORMATION Name: LIA DESAI Age: 22 Years Sex: FEMALE : 2000 MRN: Acct#: Visit Reason: Vomiting - ; NAUSEA, VOMITING, 6 WEEKS Arrival: 04/15/2023 14:48:29 Discharge: 04/15/2023 16:38:00 LOS: 000 01:50 Check In: 04/15/2023 14:48:29 Checkout:04/15/2023 16:38:00 Address: [address] [place] [address] PCP: ROBERT MARRERO PROVIDER INFORMATION Provider Role Assigned Unassigned Sara SANTOS, Sera ED Nurse 04/15/2023 14:50:36 Elsa Robles PA-C ED PA 04/15/2023 14:51:04 VITALS INFORMATION Vital [...] EDUCATION INFORMATION Instructions: Nausea and Vomiting, Adult, [id number] Follow-Up: With: Address: When: ROBERT MARRERO [address] [place] [address] Within 3 to 5 days DIAGNOSIS: 1:Nausea/vomiting in Patient Understands: Yes - Patient/family/careg iver verbalizes understanding of instructions given Comment: Normal [facility] ED Patient Summaryon 024 ED Patient Summary [facility] Emergency Department [address] [place] [address] PATIENT DISCHARGE INSTRUCTIONS Patient Information Name: LIA DESAI Age: 22 Years Date of : 2000 Reason For Visit: Vomiting - ; NAUSEA, VOMITING, 6 WEEKS Arrival Time: 04/15/2023 14:48:29 Primary Care Physician: ROBERT MARRERO Attending Physician: Yassine Maldonado MD Comment: Visit Diagnosis: Diagnoses This Visit Nausea/vomiting in (O21.9) Vomiting - ([id number]) The Pharmacy at [facility] is open Saturday through Saturday from 9A [...] alcohol and/or drug addiction problems; contact the [facility] 29/10 Crisis Hotline -Text 2WZRA tr 128084. If you received any narcotics, sedation, or [...] With: Address: When: ROBERT MARRERO [address] [place] [address] Within 3 to 5 days Medication Information: The exam and treatment you received today in the [facility] Emergency Department were for an urgent problem and are not intended as complete care. It is important for you to follow up with a doctor, nurse practitioner, or physician?s assistant infant teacher for ongoing care. If your symptoms become [...] so we can reach you if necessary. [facility] Emergency Department has provided you with a complete list of medications post discharge. Please inform your industrial renderer/provider of your visit and for further instruction [...] other disea (more content not included)... Normal [facility] Extra Greenon 04-15-2023 Tube Collected Yes Invalid Interpretation Code [facility] Comment on above: Performed By: #### 7 [id number], 18496004, [id number], [id number], [id number] ####[facility] (DEFAULT)[address] [place] [address] ED Clinical Summaryon 2023 ED Clinical Summary [facility] ? Urgent Care [address] [place], [place] [id number] Clinical Summary PERSON INFORMATION Name: LIA DESAI Age: 22 Years Sex: FEMALE : 2000 MRN: Acct#: Visit Reason: UC - Nausea; NAUSEA Arrival: 04/12/2023 09:25:14 Discharge: 04/12/2023 09:56:00 LOS: 000 00:31 Check In: 04/12/2023 09:25:14 Checkout: 04/12/2023 09:56:00 Address: [address] [place] [address] PCP: ROBERT MARRERO PROVIDER INFORMATION Provider Role [...] With: Address: When: ROBERT MARRERO [address] [place] [address] Within 3 to 5 days Comments: Diagnosis is history of nausea vomiting, during . We provided you with medication help with nausea. Keep hydrated. Eat light, over the next 24-48 hours, soups, Jell-O, avoid heavy meals. Follow-up with your own primary care provider, or your KITCHEN FOOD ASSEMBLER physician in the next 3-5 days, for reevaluation. Return to the emergency room for worsening symptoms or concerns, worsening abdominal pain, worsening nausea or vomiting, spiking fevers, acute shortness of breath or chest pain, or any questions DIAGNOSIS: 1:Nausea and vomiting during Patient Understands: Yes - Patient/family/careg iver verbalizes understanding of instructions given Comment: Normal [facility] ED Patient Summaryon 024 ED Patient Summary [facility] ? Urgent Care [address] [place] [address] PATIENT DISCHARGE INSTRUCTIONS Patient Information Name: LIA DESAI Age: 22 Years Date of : 2000 Reason For Visit: UC - Nausea; NAUSEA Arrival Time: 04/12/2023 09:25:14 Primary Care Physician: ROBERT MARRERO Attending Physician: Oneil Salomon Comment: Patient Education With: Address: When: ROBERT MARRERO [address] [place] [address] Within 3 to 5 days Comments: Diagnosis is history of nausea vomiting, during . We provided you with medication help with nausea. Keep hydrated. Eat light, over the next 24-48 hours, soups, Jell-O, avoid heavy meals. Follow-up with your own primary care provider, or your KITCHEN FOOD ASSEMBLER physician in the next 3-5 days, for [...] these instructions at home: Medicines ? Take hiws-rff-qmytdsl and prescription medicines only as told by your health care provider. Do not use any prescription, xmif-mfb-dghkldd, or herbal medicines for morning sickness without [...] to yo (more content not included)... Normal [facility] [place] 024 Urgent Care Record [facility] ? Urgent Care [address] [place] [address] PATIENT DISCHARGE INSTRUCTIONS Patient Information Name: LIA DESAI Age: 22 Years Date of : 2000 Reason For Visit: UC - Nausea; NAUSEA Arrival Time: 04/12/2023 09:25:14 Primary Care Physician: ROBERT MARRERO Attending Physician: Oneil Salomon Comment: Visit Diagnosis: Diagnoses This Visit Nausea and vomiting during (O21.9) UC - Nausea ([id number]) If you received any narcotics, sedation, or [...] With: Address: When: ROBERT MARRERO [address] [place] [address] Within 3 to 5 days Comments: Diagnosis is history of nausea vomiting, during . We provided you with medication help with nausea. Keep hydrated. Eat light, over the next 24-48 hours, soups, Jell-O, avoid heavy meals. Follow-up with your own primary care provider, or your KITCHEN FOOD ASSEMBLER physician in the next 3-5 days, for reevaluation. Return to the emergency room for worsening symptoms or concerns, worsening abdominal pain, worsening nausea or vomiting, spiking fevers, acute shortness of breath or chest pain, or any questions Medication Information: The exam and treatment you received today in the [facility] were for an urgent problem and are not intended as complete care. It is important for you to follow up with a doctor, nurse practitioner, or physician?s assistant infant teacher for ongoing care. If your symptoms become [...] so we can reach you if necessary. [facility] has provided you with a complete list of medications post discharge. Please inform your industrial renderer/provider of your visit and for further instruction on these medications. Any specific questions regarding your chronic medications and dosages should be discussed with your primary care physician(s) and/or pharmacist. New Medications [facility] [address] [place], [place] [id number], [phone] ondansetron (ondansetron 4 mg oral tablet, disintegrating) [...] is not kn (more content not included)... [facility] Coding Summaryon 03-06-2023 Coding Summary HTMLBase 64 XfubbsasADy7jEr+PGhl YWQ+UF8HHRUkA52ciTNk pJ2jD6EOPGqCAzxiZMQL HHeTEgOyhyHfUY4caJHu ZXJu IC8+SZ0qRKSeHydnrINo s3M4aCX8B74krr2vIOnq vHS7AMJePzIjzqros3oe uAj3XIjlYoesBrWq LYOvqH45AJJ4xE86Mh20 wOZbjXEny3kvbYi2OkWn DWBySIU6lKwsCKave7Tz BTBqD54sjZQqv7I8 IGNvbGxhcHNlOyBlbXB0 mM8aRSwzndfqa9ihhyao Yaw8nr55iRIbf6D4yXF7 Q4DudbW8YHSnrQMr TntuvIAKfY2dtqyhu3ra hwhyCxBrKHKlNQs7NZy4 AURpjWwwUzXqYD12MOL0 WIAytiYwS4DzOTUy eIjsVyE3e6I0Dq8AZ3XR UvfgL5EHPVGDQPfcpSS+ MB96jd13D5AgEtyuFde7 BDFpCBH0kRL3oO2z XHQgFWimc1I6mTP2N2Wo iyVklv6sh9lrKLTcRDrb Q01mlWTgn9O7QFAfsXF5 KTAjhMldPiVecE74 Oyc+VSLqqLiqt9SnPsok x9lvc7lrsXt0CowbYDGk yoWnzWkzDDN3m7AuTr7d NFNrbYH0fNL0eG5f OtOwRdT9ZQxzV188IaTv fRUtUcavT77lY6BzqCP+ ALDuEng9VMEwvCbyZK4r P9ThRKShwsgqbWGg pLdhLV7cYTEkirqaRVWf wO2qJWKaZ6g4ZzHjBcD3 POiqA1EsAEIsewimWm57 mI8vPeVsEiS2DZjl U3GbizB5RPMdzOTuCTqw NWJ3X62jh9J2RZMhEWWq TXV7nGC1lX8jcZcumapk bGVmdDsgdmVydGlj KOnqFWlbL485AECobTax PkNvZGluZyBEYXRlOiAg MTEvMjkvMjAyMzwvdGQ+ PZElSDN3rIchSVCi jOCaMMydGw7jjRelxWyb YL5fCZSsyfesNSUgqG3c YCOrjYOrgIsdBO9fYLLh vbnuy554VvWyIKR9 XSOpkAVsF1PqwM1mLbQi IIHfUJDiS9ZciCVgOSur M687RRzyPyC2UYMwkjAy M3SlCFVlbBpzVqE9 t0T1Yk7Ia9JnvzpyD9Ra ePRnUbBfVpshAJa2Q9Bh PjwvdHI+GC34KTWrWH95 AQy9RDQ4gNxsDLch NHRlU7DgvW9bNwMtZRGu ZGRkOyc+PHRhYmxlIHdp ZHRoPScxMDAlJyBzdHls FG8dHb9bATDdSPXp aLfikWDqCxJlz7jnLMLy DDrcBA9hwDeaQ2NzzXL0 HZXdt9y3Cy36W91rT1Oo dXA+VGSgqBE5yOE2 rR1sKxPyYxG7ZLhdY668 FbWzxCFkTpsyc1cmy0tf cVw8CeM4SXTaejGkuStw TDM7y7OdNz47I99f IHdpZHRoPSIxNSUiIHZh rCfirs6kuD8fNa4+PGNv cWD2nJZ1dY9uHiRoCaR5 ZOqlV798BoZybLVa Uyhkg0jja7yapMm2KwQn FWNhmeUpdQzfCKV1i4Qt Js17A3TskQrai0XaPhe7 sb94iUUgt2R6sWA4 D0GxPFLagnsrqIHvvUff RF3uYTPntprfMBRofO7v VROmF8j3DmOlOqX5LZfo E6JxlgB8DXVtgYJy WXFqaUMRmX6dlfrif0yt vipwZqIfYHUlQUk0TEb5 LOUrdZdvCtPjFSS1ZyB5 LIQ0wIRhzO5qeKlt imfqzU4fFei+HYO1eXTn rOUEZS9kFtitrNY+PHRk GOF4xKczLZomBXKtoT3u VIMnU3u7TzRwOgU2 JTemP1XinoC1PKShhKLw DKZhiXSUiS7ypenfm5es xggkIuIuJUAwAVr1MGe5 LWFsaWduOiBsZWZ0 EdK8EDY4lXYdzR5wmFeo jlrlgM4jIiy+QmlydGgg MRQ2GSc9U8HtEew7DZNt eTwlHH1abVLmRXfg Gs7uoUjkxRgmCQ9wIKVx fbnlg263JrQvj9hxFNMo oVFlIMepGIM5A22fv0T1 RCIoVAVhGIV6eRZ6 vZ6zvDzckpmsiZAthFjs nsVxqMozKYdlHGfdY353 ICXlbIviNoHaYIl5O0Vr Nkq7WBNudMdwDT0y zAVuMHntYi0aeMhrgZom TX0nVBDxjewgd733RlHp i2waJSOwzJKuDLsbVWR0 K14xo9I2XVJbDOVk UPM8dYZ5dT4hiMxgcfkl bGVmdDsgdmVydGljYWwt RWxyX101EMForThtEbEl hTd2R7XaDuq4VKCl lForVN5yxGLgMKsyUk3k uWnncXwfMH6kTEYhuabo e406ErVry4jbCXPirAUs XGsaNDY1G09yz2W1 FDVnAMIqUTT5mDN5uT9x bGlnbjogbGVmdDsgdmVy mTngPWoqSEviG882XJRp cDsnPlBhdGllbnQg CMxyCLf1K4RxLqwrmYP+ IX63ZNGiAS36mZDnpIYf a8rwuTv6QiEyGGTaBZN6 aBslYDack8GmUVEk G96ilTWmb7O8YVChmGzg sBZlAkDizGZ5hG0fCAhr zcouh8yjiqrfVmkcx1rd sw41xT91C51sCQbz ZHRoPSIzMCUiIHZhbGln nx4mwQ1rBv0+PGNvbCB3 dHN0zD6gXGHtSvY2CSor H477DpDffGUzUgkm x5owk9jqxRk4SvA9OKWr wwFvyQfzEOJ0p6FdZl30 T56kXIdtCGIeJECxDSWx SJCvvWabtu9rbF7m Ii8+FIXclWK9lPF3fW9v WkLbBaB3ARojV220NhGn aJWcPjhhH24oM0VtzMI+ CERuWqx4PXCxcXrh XP7ezPEyPVdrAx3sDHC2 ZmEhChBfYUinQ7YdEYMk rcohlycdtJS3WDUiIRNv aM62Dr9dxPizZJYa jNMJhR7jzfdxl6apovaf EkJhZEAbOTu0EEb7AWFu oQroMvJaHLA1ZeL2SPH5 sBAhxK1lzNtgwkbc hW8tI3WpJGJutczxMq87 lY7lItXuSkW8MPmdSgs+ Q2bWXiZYFKhxX2wNMQQK GNvVMQ5MSUngbDA+ XXTrVNO5dBmnAVmjYONb vW0uGCKxF8f5ScLhTtY7 YMwrI3XbSQAfpxvaWw03 uV0sEuOvEsV2ZEtu M1AdmoN9TLPjnDOjAInp OCB1N72bw3U2HXKnGLYh UTS5mYX5yA0ybZtgmwfs bGVmdDsgdmVydGlj LRqgQOjkL522JNZzpAlw JnH0QrYuIfEuKFB0W1Jj Hia1NLZpoEpoHD9jyLXh NZfhAi1gdMislEjd WO1nMHFgokfgJUMrxO9q RAEjnHLxxTlfAY4xAZKl pjauk609MaDoQWM5GKAy gHRvT4MikA7nFySx UYFvPEXbO8LtfREtQCro O267MGcvYbJ1ZNVnszMp L9WkAKRowLwcNkY3p1K7 Wv0vOJDZTWQdghpx dGQ+EDYrQJJ4lJxlYZuk PDDivA7oRVKfR0v6AvWw RdX0YHgfC0KzYWWsstqm Cq61nH0zRkAhXmJ8 FWwnL7JthzG1UDZjaRGj OQmdMBL0R88hl7C7GXZt QMIgBLE6aXM1eJ4lkEwi bjogbGVmdDsgdmVy kHnbAPtgCUbmD785EFUw cDsnPkZFTUFMRTwvdGQ+ MAHsOGY6bIxtLAyzQDXv hN6lFIMpY6t3EcFr HnY9DCelE3ZjUVBsohjr Bv93tC7iAiPgWtZ2DGou A9LgfpC1AJDmaGQqEIru TLI4Z21kj5J0NYTk ERNoSZJ3zEW8hW3ghCfg bjogbGVmdDsgdmVydGlj DXnmLFxnD803GZOeaVcl DqNcKQIrCK8uyQqo dGQ+AL70ww11D8JyEvzs Cxb4PDIlNAP1xMU3eX3e BKIfWQabq9V4hZU0L3Lb ofOkdx0qc8bhVWSx CWiuZ73hoBXtj3V5YADm fTK0ACNjgOyqInCohA46 Oyc+ZAIntUhsl0NkIvdh h5alk3bcsKy1QhVh KZJhayKzqSjtJZH1r8Ub Kw69R16dGZvrPFUsLESn BOAkZXTzmWqpxy8laQ0m Ii8+RLLcsRQ4aWQ6 cG8fVqIrPqB7SUrkY458 QnKzaYAsDacyw9xxd0xa lDm7ZfWuYMCtsqLdlNwq DEN9a6PhEt83M3Mm jRdmk6YsHpo1rg03qNBm i2T3pLM0Q9YsTLReynmz fAAlmPreBB0pRIQigskb EOEapQ9tIAJjK1c4 WlDxHcL3XMfzI8KnrhT7 VGMuvVWkLOLjjPMBmJ9k sfnxu5nanindChHrIOBz MIg0IKq5EDCqsToq HbUgFIL2GgO9ZCR1uWAa kG8lpYecxsuibM4lHod+ OYx8l4worXJlSA8bkQP1 WQ52ED71jYJyi8L6 rKL5J5PwJQUyeucjkwsj wUN3IQZdUVJxeO75Vd0u lIfmMc6xTQMqMZZ6VCKe vVFlS6QiyO2sHiLa DJJxZUUjN1UcpRTaTZss J173CXsiPzT3XEVmaxYn S2QsZDWxiAueRvW1w6V8 La5QOZ55GP45TM16 rXHec7J1vNA4H0QdVVOu cdlkvtvyoQG2GPIrOGBr aC17Pd1mjBqnOr3pAMMi RLJ8LREgiQKqP6He aK5jJeHlWEAcOXCoD1Bx yBAzGOltI815PDnsQzH2 NLRlnuNgE1IhMNMhzXqr BtK1v7W0Hk3OOm25 PR28QG10aDZlg1L0jSS5 L2JnVFPfrpjbuvfcpMY6 GIPwBKBvpZ09Kp6roHat Uu7vSKDzWIT5HTVo yGFlZ2FlfL1nTeBtOTNw EVRoO5CzxAWxRNhvM714 UNkwIuA2KNLbbvRwP1Ds HEPpfTzpFoL5n9K7 Yx2HGRqnkzh9V1QjSxzp dHI+BJ46HOGdXV85tXDo rBMeg9rqaFq5HzPtEGQe EQK4fDdsDYqsl3Lo ZXI (more content not included)... [facility] Coding Summaryon 03-05-2023 Coding Summary HTMLBase 64 EoecudgtBKe4nRh+PGhl YWQ+ER1NNVBrL75opFWr uG7uA6VMAWaZTheiMSBK ZDjDJcHiguJnEV5hhVHf ZXJu IC8+BY3iWUPaKyslwNQw s7V0hLX2H68cpb0yYYoj gDK0DUCcIyMrqdqhg1ic aWk7UObjTncnGfQt CTFklF38PDZ3kF34Ff42 wFPldWLak8ockWy3ZjTn BMRgYLF7gQirNEpie2Lx VWUnU55qaNGif4Z5 IGNvbGxhcHNlOyBlbXB0 dK5vVHyrlnbwf4zyfhbs Kgr2ah36pEVhc7T3tZV2 F8DmbiQ6FHUoxMEp BeuzhEYTqT0jbucjw1kg bolmBjXlWSQhRVl4ZJo4 KYVqkOmmGtCxAP95BGW5 RVUktrBiO4FvAYBp cShzSqR0c5M3Qk4LF8UK FqqwH2UWAMZOMGtlmOM+ MB28it29X2YyUyqjOhs5 CPYtJOM1pMF2vA4g SPBpDEiai0W7bVL5Z3Vn rvAypv8vz7noCQAuCXbd W00syFDmu4V0YNEetRT3 NCUllTorKgHdgG41 Oyc+JTWnwPnci6PzPeta c5oqc6wguPw6WwfsAFWg baUqyHeaUVQ6q4QmNx5j PXTopTO7mQK7fX7u NuToRyZ9QLrjV927NaRg hAWlAvxeF37aG7UpmIP+ ZNFiBqu2ZFAewErkCT2l E0AzWMFzgtuzmXAv fIdbLY2dLSVolnnlDTKb uX6gHTAxX3r5GwHeRvV2 ZCdbO0UuWXRjupvdYa99 aO8dGlStRcT4COnn P3UlmvM6UHBklHLfARvq QXW0V09rw2P4JGQeZOTu YLJ2dUG6gM7orJufpjzm bGVmdDsgdmVydGlj EEmoSFbkS097QCLwbZhd PkNvZGluZyBEYXRlOiAg MTEvMjgvMjAyMzwvdGQ+ KBFeYOX9yHutQAGs xRKdSFxdDw6qtXphnNid CK3pFUFpmtnxXLAznR3g TADmcFHzaNgwDH0zSRAk ucddb178RrCvDEI4 FKHudRSrU1QysU4sHsXt EZIiLSBrN6KggZUhWEwv Q722KLvhZzG1EDYlguZu H8CtNXPpdKinFlX6 i1V6Br9Oi2GbgkqcF1So kFYlSuTwRzweQQf3X1Tu PjwvdHI+RR98LXVhTL46 PHb4YTN5kPgsPDnm WMChD5UyoZ7tJkJeJIRn ZGRkOyc+PHRhYmxlIHdp ZHRoPScxMDAlJyBzdHls YA7mXr7iZGBcDZVa rWteoSYbWcYuy3viQTNf NXneNH1svOvpE2LrfXA4 WJBxc9w1Zz85L14eL0Ai dXA+INBkxQG8vDL6 pY0wKgBdPtG6TNgpZ464 CnRbkPZaKxszl4stp8pn xQr5DdN9FORbfdVmdXen ZFP0r3ItCt90P80a IHdpZHRoPSIxNSUiIHZh fUcxoc3yoQ0cAh1+PGNv xKR7hAP9gT8mXdEmAqX8 AXmpB247CfZamNIv Jqiao6fjy3xdbDc4YrYn MIEuiwKtfDtlHYA4i4Go Oz80O9GtsDjod3SaVtb3 tj58oMCtn6O1wPK1 W7WbYJIqkqltvMRyoViy YO1nBEXkzvdjBGWixS7h FLZeI0v2YmMnIjU3KDof M7WvvqM0BCAlbVJk CWPuiPWZdX9emvbdq2aa ukqfBbMoFFKrCWj6BAc2 YSJfrTdsZoTaMQA4JgV4 BBW1uBIxhM0nkRyt fbecrC1qZjx+GSP3rPTe tDSYFV4fJhykgVD+PHRk YUN1dVowXPhgQXQscM0g JDTmE4r3BcLlEzF3 KSkdQ9DvnhN1LPGwxNZg WQWsfSEYrW8vueipd9ei nrxnNiHoEXDaQEk1ZDw5 LWFsaWduOiBsZWZ0 YdZ4QSV5hKPwzV7abAbm inwnvU7lNat+QmlydGgg KUD6DHw8I1ZdWph1UBVx fTtfVO9tuDYbXJxm Si5xwDtkjOtlNM8eKRMo voekc810PzJhq1frJFJh oOWtKOarETT5J20fg8Y7 HODxAPPcXUU5nZU0 zL3pcEuedoequICbcUac itBdrZgkKMjwJRgyV494 KUMlmWljUxBcDTt0E8Ee Yue3CQMweUwwGZ6c sLFwNZngXb7msDmjdIqy DL3uGDXtttvmn621DnRb n3yvOQBjeYXtPNqmLIQ4 U18cx3H6WTKkFDYf UKR2gEZ3kD3doWficuwt bGVmdDsgdmVydGljYWwt LNoaX112OGNaiSlbYjQq xCu8R6CxBuj1MPLj hMxjSE1leXJkJDvfBd0b jJdzvIjpHE8oBEKfmdof g290ZhZsr1hiMPVpeCBi NSzaMKX1U71qg7R4 YANiROGyJCT1gLR4iQ3j bGlnbjogbGVmdDsgdmVy uRggGOotKWwoU668JCLw cDsnPlBhdGllbnQg XTzzOCa0E2WzVhclaNB+ BU32NBUfEX43bLWnsDUs o6xemQc5EdGlDJHyZBL3 yUynPGrvf6OvGBRi A97pbPAev1I9UQPgoOrb bLYuCaThwOK0dZ2pCEki latjv5qofoghUopeu1qi ye08wI64W68cQMth ZHRoPSIzMCUiIHZhbGln zt2cvC7jUo0+PGNvbCB3 qTL4lH5kIIZuIaF3FIqg C330HhEhgLDsZuhd g2uha5fudYx9MmK5SETd ppPgrUdmONJ1m4XyBl04 R74uBTkyDPImCJUqTYLv OGHgfRmhus2nwV9w Ii8+TUCgcYK4lEP3yM1q ZtOvMmO1BJqzK378KhYt lEZfLsiyH04nS4GyeOF+ DKSmGbk7UQJxcTnm TX6bsOCfTRrmBr2kYQS6 CzNiKuKyPPaqM1PvULPc wexcwysszCR8TVXpKYLf pJ31Wv5tvSroIHQp wUGClH0nazpgq9ktrydj KqFlGFRhQXr0WSo7YLYd pPulRdMfMOK4DmE1BWK8 lFYpzN6weAuwhjah jX7qN0OqNKCnqhdhEx94 mI9aHvUvZeZ2CHdeAfh+ D2qXJcRZBZgvO0uVXSAV FGbWMN0EBCoksXP+ VEBeQUQ8oSitDPmpVFUg kE2uRRDyI5v4XaUpMxC0 VWkwG2SwPGBydrkxFm05 gE3pPfXnCiG8IDhs Z3EbrzR7GTRelQYnTEey ZGC8P92xp9K2MEUrEHOn TXP8nPP4oJ9yhJzcowgl bGVmdDsgdmVydGlj WQmvTSvwX422SMTxrKvn CzQ6FyDaNeFpGKP4U5Sq Zdf3ZKSxjIbbVD1cpERg DSlaGg5skSvoaZvk WQ5dJEWkmtceBBVtlC7h IMAasDRdyGeeVY0eEWNj xzpod873VrCfCAW2HNJc wODdJ2ZrhD2wKhLc JCVqNOWgZ4XllJBtDVnm Z675PSxpXqL5MUBpijPs J5PvCJKnnKwvBcA5x1P1 Ev2xXMJMVZFcwoen dGQ+FDSqZRO9sJesUNbe IJGizG2uTUYwG1h2UaFh TyV6XAdhN2OiLZBzerfv Sh61sX1mSuZzOwH1 BLawH5OmoqT3QHMgwJZe WGakRAO4N82fo0X7QPAg VJUaZRS2eGG3oL7agTqf bjogbGVmdDsgdmVy vUsyUWdgONsmD148MHLv cDsnPkZFTUFMRTwvdGQ+ IDEnLZK6nEixDAxyTKNy cX3dJYUlV5v6GmIz JcM9DJhaH2CmOWUzqxfv He55wT9qQtPeZaM1MAxz R7BtwhU7CGKwgBNaGWsf LDC8X03cq5I9ABVy RPFxIQT6iVD8eH1gtEbv bjogbGVmdDsgdmVydGlj EIufVPcbL924QHXxnRxn Xr1HXF21VI73U6Sz PjwvdGFibGU+PHRhYmxl IHdpZHRoPScxMDAlJyBz cRjdCQ7hSj1jQYGvTGSs oRoqxIFuKbGft5mb DBDrRBbfBG6vrFhoC2Fv tYM0GKPcg1k3Hd41Y64t H9ZxgIC+HORwhMW6eNA8 aF9nUwClCpU7CMlg C428AlPbuWClAzcqb7kq m3oubKd4YsIiJVSdcjRb aZwqEJY9i1VwFg08N54w IHdpZHRoPSIyMCUi WSKucMdfug2qiN5fDd0+ VEVnuJB8jFF0zS7nNiMn YbY1YVwhH809OgMcdDAi DqpkY79vW5YadWI+ XRQuNwg7BUVblZzdTY1n aECxBOjhSd9fFYC9YxUu JxXrWPgeR5KnRJVindxn rzuleCX1OXPxDWHi qI80Wj7kmUkvUa2pDLOl ORQ8VOZjiXMiK5ZthJ5p YvMhVGRyNNRfR2RjtVSg FAarW552LZytAvP4 EFOtweXpT5KiPYXamYav BdB7e1O2Ta5ZdXrqfYIf IX3lNlFdNYg9S0FvBmb3 WFDgtFeoHR0poUQx YBlePk8gjGfwzMnbVL6m FKDhdahtg253PjRmz7yf WTTzwFCqJCjjKWF9P23k e5R8RBIbOGYjTCT7 qBQ3kT2mbVgdhopbrVFq dDsgdmVydGljYWwtYWxp J853VBHmfMzeGuBYAbr9 P4JeQjw4MMHtrDhn RU5vuONtIQrrSf9mjYsc cKukRP4hIQChzlynd548 PpHha4dcFHRbdNPsQNlu EIM5A69fh2E5NINs PXQeOQS9fYW8bJ7ftSiv bjogbGVmdDsgdmVydGlj ZWkuKTqfF601MERkmJyq Id8STwq1A1PsNlw9 KRNddHseKA5rxJLrXPlx Yk9iqUfjmAvjOX6uGAKt ndrve055AsNut3ulBCFq kBKdBJwzKZA8G66u j0Q5YNChCBQxGFH6jPX7 cQ3pkKgcyolvcIKqeGas uvNrxCwqNWpsRKucI765 IHRvcDsnPlBheWVy OjwvdGQ+EC83qa93S1Ql BwckNap2LVKxACP4ePP3 lK8iYDOvBLnbj0O6yNI2 D7KnlpRrsx8xe9cs YXB (more content not included)... [facility] C Throaton 03-03-2023 C Throat Ordered by Radha. Normal throat jonny isolated No pathogens isolated [facility] Comment on above: Performed By: #### 6 [id number], [id number], [id number], [id number] ####[facility] (DEFAULT)[address] [place] [address] .QC SARS-CoV-2 (COVID-19)/Fl u/RSV (GeneXpert)on 03-01-2023 Internal Control Pass [facility] Comment on above: Order Comment: Order ed by Radha. [[email or web address]] Performed By: #### 6 [id number], [id number], [id number], [id number] #### [facility] (DEFAULT) [address] [place] [address] COVID/Flu/RSV (GeneXpert)on 03-01-2023 Flu A (GXpert COVFLURSV) Negative Normal Negative [facility] Comment on above: Performed By: #### 6 [id number], [id number], [id number], [id number] #### [facility] (DEFAULT) [address] [place] [address] Flu B (GXpert COVFLURSV) Negative Normal Negative [facility] Comment on above: Performed By: #### 6 [id number], [id number], [id number], [id number] #### [facility] (DEFAULT) [address] [place] [address] RSV (GXpert COVFLURSV) Negative Normal Negative [facility] Comment on above: Performed By: #### 6 [id number], [id number], [id number], [id number] #### [facility] (DEFAULT) [address] [place] [address] SARS-CoV-2 (COVID-19) RNA MILY+probe Ql (Unsp spec) Negative Normal [facility] Comment on above: Result Comment: Perf ormed by PCR methodology. Performed By: #### 6 [id number], [id number], [id number], [id number] #### [facility] (DEFAULT) [address] [place] [address] ED Clinical Summaryon 2022 ED Clinical Summary [facility] - Emergency Department [address] [place], [place] [id number] ED Clinical Summary PERSON INFORMATION Name: LIA DESAI Age: 22 Years Sex: FEMALE : 2000 MRN: Acct#: Visit Reason: Cough; Throat pain; COUGH, SORE THROAT Arrival: 03/01/2023 14:12:36 Discharge: 03/01/2023 16:04:00 LOS: 000 01:52 Check In: 03/01/2023 14:12:36 Checkout:03/01/2023 16:04:00 Address: [address] [place] [address] PCP: Provider, Unlisted PROVIDER INFORMATION Provider Role Assigned Unassigned Soniya Strickland RN ED Nurse 03/01/2023 14:14:28 Tom Smith DO ED [...] verbalizes understanding of instructions given Comment: Normal [facility] ED Note - Physicianon 2022 ED Note [...] Resolved Disease caused by 2019 novel coronavirus ([id number]): Onset on 11/23/2020 at 20 years. Resolved. Comments: 11/23/2020 CDT 16:07 CDT - SYSTEM Problem added by Rule (IC_COVID19_AUTO_PRO BLEM) following 2019 Novel Coronavirus (CoVID-19), MILY L from Nasopharyngeal Swab collected on 22-NOV-2020 16:44:00 EDT tested positive for COVID-19. no history (980880714): Resolved. Contact dermatitis (92892287): Resolved. Pharyngitis (4592722454): Resolved. Cough (06965324): Resolved.. Surgical history: Tonsillectomy and adenoidectomy (050083066).. Family history: No family history items have [...] any worsenin (more content not included)... Normal [facility] ED Patient Summaryon 023 ED Patient Summary [facility] - Emergency Department [address] [place] [address] PATIENT DISCHARGE INSTRUCTIONS Patient Information Name: LIA DESAI Age: 22 Years Date of : 2000 Reason For Visit: Cough; Throat pain; COUGH, SORE THROAT Arrival Time: 03/01/2023 14:12:36 Primary Care Physician: Provider, Unlisted Attending Physician: Tom Smith DO Comment: Visit Diagnosis: Diagnoses This Visit Asthmatic bronchitis (J45.909) Cough ([id number]) Throat pain (636867119) The Pharmacy at [facility] is open Saturday through Saturday from 9A [...] alcohol and/or drug addiction problems; contact the [facility] 29/10 Crisis Hotline -Text 6PILL kx [phone]. If you received any narcotics, sedation, or [...] and treatment you received today in the [facility] Emergency Department were for an urgent problem and are not intended as complete care. It is important for you to follow up with a doctor, nurse practitioner, or physician?s assistant infant teacher for ongoing care. If your symptoms become [...] so we can reach you if necessary. [facility] Emergency Department has provided you with a complete list of medications post discharge. Please inform your industrial renderer/provider of your visit and for further instruction on these medications. Any specific questions regarding your chronic medications and dosages should be discussed with your primary care physician(s) and/or pharmacist. [facility] [address] [place], [place] [id number], [phone] albuterol (Albuterol (Eqv-ProAir HFA) 90 mcg/inh inhalation [...] Acute bronch (more content not included)... Normal [facility] Strep Aon 03-01-2023 Strep procedure control Pass [facility] Comment on above: Performed By: #### 6 [id number], [id number], [id number] #### [facility] (DEFAULT) [address] [place] [address] Streptococcus A Negative Normal Negative [facility] Comment on above: Performed By: #### 6 [id number], [id number], [id number] #### [facility] (DEFAULT) [address] [place] [address] C Throaton 02-28-2023 C Throat Ordered by Discern. Normal throat jonny isolated No pathogens isolated [facility] Comment on above: Performed By: #### 6 [id number], [id number] ####[facility] (DEFAULT)[address] [place] [address] ED Clinical Summaryon 2022 ED Clinical Summary [facility] ? Urgent Care [address] [place] [address] [id number] Clinical Summary PERSON INFORMATION Name: LIA DESAI Age: 22 Years Sex: FEMALE : 2000 MRN: Acct#: Visit Reason: UC - Sore Throat; SORE THROAT, CONGESTION, BODY ACHES Arrival: 02/26/2023 09:55:01 Discharge: 02/26/2023 11:28:00 LOS: 000 01:33 Check In: 02/26/2023 09:55:01 Checkout: 02/26/2023 11:28:00 Address: [address] [place] [address] PCP: PROVIDER INFORMATION Provider Role Assigned Unassigned Errol Ortega ED PA 02/26/2023 09:58:25 Birdie James HEATING UNIT MECHANIC Nurse 02/26/2023 10:17:32 VITALS INFORMATION Vital Sign [...] infection with cough Patient Understands: Yes - Patient/family/malissa valle verbalizes understanding of instructions given Comment: Normal [facility] ED Patient Summaryon 023 ED Patient Summary [facility] ? Urgent Care [address] [place] [address] PATIENT DISCHARGE INSTRUCTIONS Patient Information Name: LIA [...] to help relieve symptoms, such as: ? Qurx-ime-olzgxgd cold medicines. ? Cough suppressants. Coughing is [...] other clear broths. General instructions ? Take hgjw-jof-zqhuiku and prescription medicines only as told by [...] infection to other (more content not included)... [facility] POCT Rapid CoV-2 (COVID-19) Antigen/ Flu A&Bon 02-26-2023 Influenza A POCT Negative Normal [facility] Comment on above: Performed By: #### 4 [id number] ####[facility] (DEFAULT)[address] [place] [address] Influenza B POCT Negative [facility] Comment on above: Performed By: #### 0 [id number] ####[facility] (DEFAULT)[address] [place] [address] SARS-CoV-2 (COVID-19) RNA MILY+probe Ql (Unsp spec) Not detected [facility] Comment on above: Performed By: #### 8 [id number] ####[facility] (DEFAULT)[address] [place] [address] Strep Aon 02-26-2023 Strep procedure control Pass [facility] Comment on above: Performed By: #### 6 [id number] ####[facility] (DEFAULT)[address] [place] [address] Streptococcus A Negative Normal [facility] Comment on above: Performed By: #### 6 [id number], [id number] ####[facility] (DEFAULT)[address] [place] [address] Urgent Care Note- Provideron 02-26-2023 Urgent Care [...] Resolved Disease caused by 2019 novel coronavirus ([id number]): Onset on 11/23/2020 at 20 years. Resolved. Comments: 11/23/2020 CDT 16:07 CDT - SYSTEM Problem added by Rule (IC_COVID19_AUTO_PRO BLEM) following 2019 Novel Coronavirus (CoVID-19), MILY L from Nasopharyngeal Swab collected on 22-NOV-2020 16:44:00 EDT tested positive for COVID-19. no history (582173459): Resolved. Contact dermatitis (67869866): Resolved. Pharyngitis (3522696570): Resolved. Cough (45303867): Resolved.. Surgical history: Tonsillectomy and adenoidectomy (508226056).. Family history: No family history items have [...] collect, Matilde (more content not included)... Normal [facility] [place] 023 Urgent Care Record [facility] ? Urgent Care [address] [place] [address] PATIENT DISCHARGE INSTRUCTIONS Patient Information Name: LIA DESAI Age: 22 Years Date of : 2000 Reason For Visit: UC - Sore Throat; SORE THROAT, CONGESTION, BODY ACHES Arrival Time: 02/26/2023 09:55:01 Primary Care Physician: Attending Physician: Errol Ortega Comment: Visit Diagnosis: Diagnoses This Visit Myalgia (M79.10) Other viral agents as the cause of diseases classified elsewhere (B97.89) UC - Sore Throat ([id number]) Viral sore throat (J02.8) Viral upper respiratory [...] and treatment you received today in the [facility] were for an urgent problem and are not intended as complete care. It is important for you to follow up with a doctor, nurse practitioner, or physician?s assistant infant teacher for ongoing care. If your symptoms become [...] so we can reach you if necessary. [facility] has provided you with a complete list of medications post discharge. Please inform your industrial renderer/provider of your visit and for further instruction on these medications. Any specific questions regarding your chronic medications and dosages should be discussed with your primary care physician(s) and/or pharmacist. [facility] [address], [address] [place], [place] [id number], [phone] dextromethorphan/gua ifenesin/pseudoephed rine (Capmist DM 15 mg-400 [...] their own, without (more content not included)... [facility] Coding Summaryon 02-22-2023 Coding Summary HTMLBase 64 IgwpoziqEJf2vQk+PGhl YWQ+TH9WKENrG65dkSPy gU4rG2EEQDsGZsecJARC YStTWqXxgpWkYB2gnLTf ZXJu IC8+UG6eQNQlYgxoeMUb k1A0cRX0B13waj4jKEhh gMI3SRXvZwNwsarjb0bo tFk1VOogDcerEiLw HKEoqM39CLD0vU99Gx48 qZIbtQWwr3fojQg2VoVo PGBtPJL2gIqdEHyna1Ii BOPaF44wpWNfy9Y4 IGNvbGxhcHNlOyBlbXB0 pE7uFJsfpuqrs8untnjd Vjv3kz08gAAcx9N0uGO3 B9VgqgM9YVKibHKq BxjdqXBGaG6lubckf3fc fpidZuXzFJPaDKh9FVd0 CDFoeVxdTkNeAJ22FDP3 JLWjzeXfH7XdIDOu jChaOsA8v4B9Az5QL3XE PhliZ2EHIPBPGMrgrJU+ OL00zl88F6CtFpgnLsm4 CFZpLBT7gWP5vO0i UYEnCRska0N5sSO1I9Ez jdUnzw4ut2voOZTyHClr G80dbCMod6O6JRTusEA0 QSWyoXfxReLiyS33 Oyc+GKOrbHnev5XtPfxv u4pbp0dfeCo0IcupGVUj imEtkDpkIQN7c4RvTr7w FXGgwYF1lTE7iM6q SvOtBmJ9KBonS720BmCe cKTpAnjrE24iQ0MwxHB+ AXMyGps2UCVrrUylLW1g F1BbXPJqdjpfqAIa lQlvZC3cHLEskihhBKCj dW8hWERzL0j7InZlMaO3 OFjdD3ArCCDlxrjeSh06 kM5gEnLeUwN2OKga H3BsiyJ1YZYljBQiDHye TQQ3S15ol0O3RNTuTAVp ZPF5rSX2kX7qwKhwltsk bGVmdDsgdmVydGlj YXlkHOxwT854FCZnuTfo PkNvZGluZyBEYXRlOiAg MTEvMTcvMjAyMzwvdGQ+ HIBjEAT3rVxuPJPc pGCjWYigPw7tsQyueHjp FI4rTTUnbbiqVKYepB8k BEJucOKkmQphGK2uYQAf xtkcx195WbWhZTP2 XURwePRgA3DinJ7eKqMr PMQuXTDfQ0SluOAnTNxx J678UEfnMwL6AKKovbQj Q8RyFCJcdEyzPbF7 y5U1Ng0Gp9HkqhkmP8Yo yIPhFvGhYaleGYg8P1Xy PjwvdHI+UY29IIWlBI47 TUa5AYC5yRmzBJzy FMGjN7AgpZ9uKcThYCEf ZGRkOyc+PHRhYmxlIHdp ZHRoPScxMDAlJyBzdHls LZ7tNa4rMXNwHRUl eZoctRFtChYkr7hkKEZm KCoaVG7edFepT8XmrZI0 FFRay2z4Ut10T43fY1Uf dXA+JOXifEJ3zLB7 nM6xXhGxGrC1RCvnQ323 NtGlhKZnBfwlt4vgy2yc bNu7VeA9ODMvzmDbkSkz DTA3r5UqVm78R49p IHdpZHRoPSIxNSUiIHZh tWqaso6lnB3pVm2+PGNv zWH2hRU6eZ8gFdExIeP9 YFgcA503RcXdzWPz Rqsmw9kwh6lswIt3GfXm MRDpuuXziTxmGUH4q7Ow Vl53E5XlsCcip2WaBlf5 zm93qSMvl1V5dXB1 X8ZfYAQxxzuswRBmkAdp SE8kBAYhphobKOAkkA3m IEWvS2x3LsHnRnE6RIwj M7PmuiY5XJTbfDHq YRBuyYEQgV2cwibrr6oz rsveDfSfPCSpQCa0EAr4 THHrtBlzEyMcWDY6AlE1 TUS8aYMkwU9hfQik efearJ0pXol+UIA1fFKj aUDJYF8kRpttvKH+PHRk QGK1dFdmFMgqJYVcjG7l EDGjP9w6RjHkSwI1 IVmnD2VuwrH2JRYmiGVb BZUemSUSiV6ytrfxb1yc vseqRzPxHTSjBNb9GZj6 LWFsaWduOiBsZWZ0 HmQ0SPH7uNFygN4miTqn hnzdyJ1wCao+QmlydGgg JML7DEn5C7EcClq5BBPy oWouBV3ojLYpBRdc Mo2juPtbbVyiTC4gQFFe wbqzv488BlPkg4miCPQy lFQfWPyhELY7U61wi2W5 RMRpQZXcYYT3hKK0 tR4qeTjrwsikiCRxhOux cnRnmSzqFVweSUctH626 DMLhwIzcFrTuPTz2P7Xi Dvp0WPBgvEvdGI5m oHEyOHavWm8omAbxoIzt KG4dODZmqwovz622RbSd o6fkPXFbzZDwCIxaXYV7 K01vf7Z6PJMpFJHe ZRS5lSY3yB5vrMtkpvzf bGVmdDsgdmVydGljYWwt BIgzR788SNZvrUktWqBt fPw1O7PzRje0CBHc lGfuUW2vrDHzLRwtWz4j qPmiuPlvGB0gISTynuqd n382YqVll4pzFAWffGPn XFfaDPW8U08nr6D4 MRRtAKUgSRB9iKQ9mS3u bGlnbjogbGVmdDsgdmVy xNtoZZuoDJdbU545NASh cDsnPlBhdGllbnQg VHtkCGk9N9KaArfmdUS+ KE93PGNwOZ38sIMcrANi o4nlvUh6TkNkMFKnSKI5 fVusIDqhu3HfSHTu F93bzOMwx0T7IYAprRrd tEHlQlLkuUX2zG7dQSdj xnpra8lktvfaGrbtw7kw wm03lO73P04bYAsv ZHRoPSIzMCUiIHZhbGln dh5xhU8hNe9+PGNvbCB3 sTF1pY4pJEDoFgF0HLje J706CiDejBCjTmnx f9apz2kmvJf4OkW3UBEn itDrsXagDLI4c2JvOf79 B81vZXwzVPKxRAGxZQCx RJObpEmjoh2bmE8n Ii8+EFPsbDT6pNG8yR6m IuWoCiS9ZQfwM208UtFz nVZuKltzS79dB2FrhPP+ HXDrKuj8MVSxrIfp MU7vrBXhDDltIp1cEDW3 CpZrXbNwTFgoP8KgCCQd hfwnhmrnkTP3DZBcONNe qK19Hu6fzLfvYNDp nIPVvZ7etdqpk1vjzqmz HuDjGFLgQOp4AYv4GFNi mNrvOnCoYLH3RoD9AKI4 jNKqfY5ogAfhlorr kF1cH0UkADKuqmcqOf89 tB7tQlSxUkC1VWvlAgy+ L2oNMnAOPRkkF3qNGWKG NJsPHR0VJMjrcTP+ QXViHYI2cTsfFNnaYZOr yM3nJZYqJ3r0AiEfJwG7 ZShoT1SpIHQfffshEd12 bH2zLiLcYwH4ATfh N5MfemI6TDHbkMFsNRvy KPX9N30za5Y6GLSmKYCh RFZ1dIQ3lV5dvWlcqlxj bGVmdDsgdmVydGlj IUopJCjfE796XMYsvYnd UkN9JdPfNjUzHXA5A2Ke Lxl9AYIavSevHQ8erSNi JSdbYp1ujOwxeZku YC0eFYCwurweVUXtxE1b TTXylWGbxSzhLL2dZVKv ibyqo418SrCeBUZ1MOEe iZWuN5AbdX6oZfTs NQUqAEIaF5TdjEKwYMsf V189AWiyAlP6HHGehzAp N6IzSODzlMivJtZ0y1E3 Zj0tYDNOCOGwfvzn dGQ+PNRbPTA8bYylRHfz CLJrgO1rAEBcZ9u3CdVx LjH2SZltA4ShFNFcwncx Jk31fH7jHkGeFwQ2 FLkrI4IafiL1OKOiyWVp PVfkRRM1O77qp1S8AYFi JEDvCCI4pFH4eE9uqNqm bjogbGVmdDsgdmVy xPlpXCbeRIedG885BSGz cDsnPkZFTUFMRTwvdGQ+ RJDxSRJ4yTdwPQphHZRh fI4nPARdF3i8EePp XdZ7LEpmR3FtMHYwudkz Wp83oX9jJvDpRgJ9KVzu B3WxefH0BKUsgEKfTRel IAA1Y00cg6H1KMZs MMKkSUI7jWZ5tJ8biWzr bjogbGVmdDsgdmVydGlj GRtbCTufA445WDZfpSak Pj3QXX64HE43B1Yr PjwvdGFibGU+PHRhYmxl IHdpZHRoPScxMDAlJyBz nHihKB1uAc3gOCJtEPFq hRysrCOcWsZpr3jf YOLqYChkWM3gaDafS2Oc gOE9AOWca2d7Ht50S25c C3YkzIG+VZHokVK7dCR4 nY6uBoVpRvR3AYml Q661ShAipIXjQrnmu8qc i8pgeUo7ClAqCDNkbpMi vGolDMJ6c5CsWr45K96c IHdpZHRoPSIyMCUi UXGovEugbl9aoY1jFt6+ ZKRqwUL0dCR1kS2tIcLj XeQ5LLzsL878QeSnhUNu GeyzH30gG7DvnEA+ IRIlSsd7IJLmcUtrQN3t mQXdHTblGs8nIPD1LzGh GbQwTIrvU2WwPVZtgntx vilcmYK4AWFxBIWt rN87Ju7ccRuhYc2dTSNm VBK1GPPuxUUzK9NmiA4d SvLhQVQoZSVlW2HhrUDd HLppF274PXezLyN6 VDYxpsVrP6WlOVYhmLiu FkB6a2F9Vs1HbNpeyZJh WG6tXcUcHPn5U8TzAwe1 PQVrdUgrRR4rkTWn CMseTv0knIyafOqvBT6i GSKzzoibu911DfAal8ol PTRsaWGnLBnnGPQ8B63n u3U0ZOCeABYjQCJ3 kXR5qA3kpPbdruwoiMHg dDsgdmVydGljYWwtYWxp N268DODdlWtqZyWGXjn6 S7JxGpy1BWJebHdf OZ0lmFMyJIeoBv0yrEan oSvpZR1jTNCxawqfy334 HfXrh2bqCHWwlVItCLgo SYM3H70gj8B9ZFZe ZRJjESG0hPQ4dG5nhJbt bjogbGVmdDsgdmVydGlj QPcoGUtxF694HURxoVus Hu5WTyv4Q0InKlj9 GLSvwYpyZY3ndOQkUNyh Mu6ypXwypZgcFL9fISAk cbenc636WeKqt1xuCXFt tMTyULzoSRA0J83e o2D2WQUqIBPoICT1zBD9 eZ7dkSkewonmvJCnhHkr ogNryAfcCTnpAIztL567 IHRvcDsnPlBheWVy OjwvdGQ+BX55nx31Z3Ci SzxqJts9VBZyVLA0uOZ9 uX6sVTQhEUocn6K6kKH9 B3FvuiWguj9vp2dj YXB (more content not included)... Normal [facility] ED Clinical Summaryon 2022 ED Clinical Summary [facility] ? Urgent Care [address] [place] [address] [id number] Clinical Summary PERSON INFORMATION Name: LIA DESAI Age: 22 Years Sex: FEMALE : 2000 MRN: Acct#: Visit Reason: UC - Wrist/Hand/Finger Pain or Swelling; LT HAND INJURY Arrival: 02/14/2023 17:07:31 Discharge: 02/14/2023 18:05:00 LOS: 000 00:58 Check In: 02/14/2023 17:07:31 Checkout: 02/14/2023 18:05:00 Address: [address] [place] [id number] PCP: PROVIDER INFORMATION Provider Role Assigned Unassigned DORA JASSO ED PA 02/14/2023 17:09:37 Indu RN, Florina ED Nurse 02/14/2023 17:22:07 VITALS INFORMATION Vital [...] Therapy Follow-Up: With: Address: When: Regla Hernandez [phone] EXT: [phone] Call for family Physician Within 3 to 5 days Comments: Call for help finding primary care provider. Follow-up for reevaluation. Continue with rest ice and elevation using ice 10 minutes out of every hour as needed. Return for any worsening issues or any other problems. With: Address: When: [facility] Comments: [phone] DIAGNOSIS: Contusion of left hand; Left hand pain Patient Understands: Yes - Patient/family/careg iver verbalizes understanding of instructions given Comment: Normal [facility] ED Patient Summaryon 023 ED Patient Summary [facility] ? Urgent Care [address] [place] [address] [id number] PATIENT DISCHARGE INSTRUCTIONS Patient Information Name: LIA DESAI Age: 22 Years Date of : 2000 Reason For Visit: UC - Wrist/Hand/Finger Pain or Swelling; LT HAND INJURY Arrival Time: 02/14/2023 17:07:31 Primary Care Physician: Attending Physician: DORA JASSO Comment: Patient Education With: Address: [place]: Regla Hernandez [phone] EXT: [phone] Call for family Physician Within 3 to 5 days Comments: Call for help finding primary care provider. Follow-up for reevaluation. Continue with rest ice and elevation using ice 10 minutes out of every hour as needed. Return for any worsening issues or any other problems. With: Address: When: [facility] Comments: [phone] Hand Contusion A hand contusion is a [...] elastic wrap to support your hand. ? Ifix-pey-wwbredn medicines to control pain. Follow these instructions [...] or lying down. General instructions ? Take fakl-rak-ggcwnxn and prescription medicines only as told by [...] provider. Document Revised: 07/13/2021 Document Reviewed: 07/13/2021 Identified Patient Education ? 2022 [employer] How to Use Cold Therapy Cold [...] the area (more content not included)... Normal [facility] Urgent Care Note- Provideron 02-14-2023 Urgent [...] All Problems (Selected) Anxiety / SNOMED CT 12809112 / Confirmed Acute depression / SNOMED CT 6606935196 / Confirmed Chronic post-traumatic stress disorder (PTSD) / SNOMED CT 959332922 / Confirmed Pharyngitis / SNOMED CT 2750365331 / Confirmed Cough / SNOMED CT 43490462 / Confirmed Objective CONST: -Well-developed well-nourished. -Acute distress: No -Vitals: reviewed. SKIN: -Gross abnormalities: No NECK: -Supple (qtwn-vk-vbweh): non-tender. CARD: -Rate and rhythm: Regular RESP: [...] and Plan: Diagnosis: Contusion of left hand (WLT36-EQ S60.222A), Left hand pain (OOV01-EF M79.642). Orders Orders Patient Care: Brace/Splint ED [...] [Verified on: 02/14/2023 18:01 EST] DORA JASSO Normal [facility] Care Recordon 023 Urgent Care Record [facility] ? Urgent Care [address] [id number] PATIENT DISCHARGE INSTRUCTIONS Patient Information Name: LIA DESAI Age: 22 Years Date of : 2000 Reason For Visit: UC - Wrist/Hand/Finger Pain or Swelling; LT HAND INJURY Arrival Time: 02/14/2023 17:07:31 Primary Care Physician: Attending Physician: DORA JASSO Comment: Visit Diagnosis: Diagnoses This Visit Contusion of left hand (S60.222A) Left hand pain (M79.642) UC - Wrist/Hand/Finger Pain or Swelling ([id number]) If you received any narcotics, sedation, or [...] legal documents With: Address: When: Regla Hernandez [phone] EXT: [phone] Call for family Physician Within 3 to 5 days Comments: Call for help finding primary care provider. Follow-up for reevaluation. Continue with rest ice and elevation using ice 10 minutes out of every hour as needed. Return for any worsening issues or any other problems. With: Address: When: [facility] Comments: [phone] Medication Information: The exam and treatment you received today in the [facility] Care were for an urgent problem and are not intended as complete care. It is important for you to follow up with a doctor, nurse practitioner, or physician?s assistant infant teacher for ongoing care. If your symptoms become [...] so we can reach you if necessary. [facility] has provided you with a complete list of medications post discharge. Please inform your industrial renderer/provider of your visit and for further instruction [...] area. This is (more content not included)... Normal [facility] XR Hand Complete Lefton 11-0 XR Hand Complete Left CLINICAL HISTORY: Left hand pain. Punched wall. TECHNIQUE: 3 views left hand. COMPARISON: 12/15/2019 RESULT: No evidence for acute fracture. No dislocation. Joint spaces appear maintained. Soft tissues unremarkable. IMPRESSION: No acute findings. Final Signed (Electronic Signature): Gavin Mahoney MD 02/14/23 5:54 pm Technologist: KELVIN PATEL [facility] Coding Summaryon 11-27-2022 Coding Summary HTMLBase 64 SizecqksDUa9nJe+PGhl YWQ+LN3WOGVdE95csQVx yD7vZ0ZTDNlFWgnjHADB YLfUVsPwxhBkKH7xcQKw ZXJu IC8+TM2iLJUlYfrhqKIv z3P0aAP7L61xms7dVMiu rQW0XCPyXnBuieywr5di eGs2DTpmZmfoVgAk OTVazA37YIC0oV82Sf42 sHSwxAHaf9clxMk8ZrFf LSMyXQC3cCusCHgqf2Ec UGLjT18pvPBqv2L7 IGNvbGxhcHNlOyBlbXB0 yN9cCRpdphtec7isnqxr Kxm6nt49aVNua1N2hQW2 G0WyvkJ8EISilTWt RnapdGINcH1gosfnp8sp xricPuFuQEMvMMp8MFt4 UUTolBmjYeHoAY11DDE1 QOOfdwAaL2PxQFPe pBohZyT8g6J4Pl2EQ5RF BltrX2PHAPAAVYxanAE+ AO23eb85J9DsXqiqFgf1 PWZoGCQ7cUR8dQ4e VKGiAYzht5H5uCX2T1Lc lgOynz4wm7gaXEUtWRzp K53lsNSjj4Q5WWFvpKX6 LLJfaXvkXvTtnW43 Oyc+ATHmhMiyg5VnVgmj m8hvs4jyyPq4KsxsPZNe osVkaPknGLP3t6GmGb3c UVSkxTU1uWO6kY6y XvJwXiT7MPlgD850OyNs eIArHwtmZ86lQ0TabXA+ VNWhFrm7ZMBppGlsXM4c Z9AsYSDygbxlaOOw rUmtOO9eJMSmrtxsFYDr jX1kNQAiW9d8OzQkIyU2 RClcS8KjEAGhcbufBb85 kG3wSnFnXsI5ZGid T6SttbN4WAFlzIEgIBus NBS2Y76zg5Q3RCOhKAQy MWR4fFR8vE7mlVxnraug bGVmdDsgdmVydGlj EOdxWPleM132VABzvCzj PkNvZGluZyBEYXRlOiAg MDgvMjEvMjAyMzwvdGQ+ QCYbGVX4cQsfXPCb lVHsHPceUy3hnMmmdTsk XA7sTQBazdhdMQNsbI0w CIEbcRKdhIdvCV2vXZCe iutop609KdQsDKK1 KMZqyAUkN3NsqG4nFgGj TSAjSXMzQ6GrmQPqAOdn N722UHpfTrM2JZXswjOo K0PpDFNsfQraFrB3 c9O9Si9Je6NhsebsO1Gv lBGmUzZvXxdsQVs0M9Et PjwvdHI+UJ42IXUmYX15 AJu6HWH1cOcxMXsy VNGcK8GscX1rKnIgBNBz ZGRkOyc+PHRhYmxlIHdp ZHRoPScxMDAlJyBzdHls SF9qFf5cDRSwFDSk yGnatPBmYlTjy7itGKDa XKvvZL3jtHxoT6LlqKP4 ZEMvg4i7Xa35L76dW9Zj dXA+NDFyyTL9zGA0 nI2dJlTrMkF3NJqoY022 DaPrzJEkVojky0esv7uu uVc6UyO8CGPntwEusCea RFJ8b7PbTd69N34q IHdpZHRoPSIxNSUiIHZh lDlbod6myL9fJd4+PGNv kSN8kQE2sG0vIzBhBxG0 WEwmE336MsMwaNAz Uvtla0ipi2wjmYo0YhBc SFNmaqDdeKaaIIG3c6Le Vb16Q6OpyYfre6JjWta7 jp95gAWac3V9iEJ2 A9MoGEWixzcqjLBmfRil MS4wQZFrgiajXYCdeR7z AUBrY8d7EsTfOsZ1CPzg M1QiwiQ3ITWuyZVi SOHmxHXXhG2ahhfqz9it rkrnIeFxLBQeSZb5HRx9 YGFcaRkzYuTdJPD2BqP3 HGQ1lGYxgY9viKap okqwjT2pMsy+HSX0vIGd hLGAUD9hPkutiMJ+PHRk GPP6vGqyGCxiVYInrP4r PXUtE3x7ErItJsS4 FIwmL6RbhdN0ZYCftSIn ZQFqpUPGbL4ubadtq1et fuwjYdKcKKXvFMq8SCj5 LWFsaWduOiBsZWZ0 OcX7QIK1dURvvU9qjVvs fdakqE9oIqx+QmlydGgg OMQ5ERt9N3WsFak1DMIq vHbmHL2vkSFsDOek Rl8lyPkmxBmqNU2oMRJa fopcc829QbAcr9utJIHi mQMqKFgnCEB1W35hf1N7 UWGhINRpZYT6iGA6 kQ3ydGeazewdrHOmhQfp szQpeLuuIInuLIhiJ268 PNQecAmiVqXtHEo4O0Io Tdz8GMIywZdyBA6m iFZmRZkeBp6gxMcqySfw MX3zFCOrsgimf708FpZn q8irPRCdeIBfLVekFZC2 B60xn3U8ONQjQWFg HQL7jUU4nH9wqTbtueuz bGVmdDsgdmVydGljYWwt VXxxA402LOCybDbaAfMo qMf5G7DkArp7VCBu pSqzHE7rfNZtJGijEh8s vUsdmJffDH1sPWDhikjh s732JnHsl0aiQCVbdNZg UEjpEOX3G67sd0T7 JHSkVQVtEFB3jVV0aH3f bGlnbjogbGVmdDsgdmVy vSjnBUbhNTphV633YXVn cDsnPlBhdGllbnQg BXzpRNy2J6WeJcksiGN+ DB10VEDuJK38kWOwvQQk q8bhoKs7MvJtJVBjRGT7 lEyhWXdbl0HzJNXa B15vzOIgr3A6TQVdoVeb uLTgVfKhpRZ7xO3pWHav wubiv4yenxmbBxocl0sy xz35mA98F92vMYvs ZHRoPSIzMCUiIHZhbGln uk0ykS4gMy9+PGNvbCB3 fCE3rV6iGECaXdL4GBsq B387BlDfbGQqRixx a5eqc6yrcGb9BcQ3DWOh msZgoGouPQV8i1VqJy43 I42pHHftHXBoEUYjANEh RUOwxVrncv8upR9z Ii8+ODGsvMG4iGP3iS6i SaGqIuI0BUuuM013YoWr yZShLxujY96bA9RiuGW+ TBTyVvp9QDBebCet XR3kwFVkUXtyVu3gKBE3 NsLbXiQhNTzkT0ZkZBHt djpxiioknSG9NIAlVXQv hQ01Lw0ccLfgKQMr kTAQzL4yhspde0zmured UzNsVHWmKZb5MFj1VRYq vJasUhWkATB3YtH8ERD4 vYJljW0jiGdpphlp xI6mV8JaEWQeookxEo70 rK8pVfHzKsF2KEmgPcd+ U6mIFnOKGGkqY5qOXLSQ DUhNEG8ZAOmnuJU+ UXPpYCP4uJarAAfeOLUd mB0zXBSdT7i9KsWaYdR0 ODrbE6IyQXQkwuwlBt66 lC3zCrWjFtN0JPvb J2KuvqD2ZHAsiJIuQMrf RBY5S18mc4K6YJToIYTr MJQ6oUG9dZ1auBlmkeaa bGVmdDsgdmVydGlj JXooEWumH351MPAbiYaj NaY1LbZqFqIoUUB4I0Ms Zua3PUIjmMazTF2hfIUu CCljFu9rmWegyBfh MF0zANJuzygnVRFqbP7n BGVxkMQoiJlvVL7tDJQc digrj373FwCtTAJ1QSWv vUWfK0KtcT9yFjVd WBHiEAFiP2UljLQqSJgz O974VIcdQqA8LJQruyTi J1TbYAAmxEmwXeI6a8B0 Ss0oYFNKZHDdlztb dGQ+BYWdXYD3uIsbWGlg KGRtyZ9bTITaW2q9AtTp MrQ5LAiiB9EoFVAsjvim Ul47hJ9cYaEiZzI1 VHcxM7ZtbaH8BOVioDPk YVywOWU9W68yg1E5UJTd JOIcKWJ2mMS2iW6fsMxp bjogbGVmdDsgdmVy rCtvOOewFAbyQ130VQUu cDsnPkZFTUFMRTwvdGQ+ OYAtRSS3dSypLUiwXTAb rV2tBPBuS2b0VyEc TbT1GEgjC7WbREDzebci Ks24dJ2eHzUqPbG2QWaa Q2JbrzJ3VLDirKWtNYgt KEY1V09cd3U2LTHr ZLNvTHC5kLE0hY7bqTdz bjogbGVmdDsgdmVydGlj KEoyLSphW513UPPmbChw HmLzWDArPT8muImf dGQ+TT88bo76X0NwLsnt Dzi0IAJlVYC1hZK0qD8h GTThIZjgj2J2gWX9N3Xt hfDncs5lo7fgDIRp VSqnB43mmEUvf1G7RYDl rMO9WBPwqHomHrSxyT13 Oyc+JAPnhBjog4QbZjof j0sdk3kmxLf5GnAw KYAqjmSdfIfsTRQ5k5Aw On33P82bFMqzLOWxRCCk PUZbGEYzpGwvyv4osU5z Ii8+LYAvbHD8rRD9 tV5zYsIvXgP3MKtwC249 SmQcaVVkHkwfq6sgf3pn wMq0ZkHbQSOafaJebZgu SYA7p4GiIq40I4Eu iKkng1AcQpu1uq25wYWz o8T0iCQ8G8VqGXVejzde sNImuKagCQ3wEAJflfpz XTWaaI1yPDRuZ6s0 JuMxDsQ3TVvdJ6AflrG4 FFKneTCrCCLudZGMsZ8p dfldd7llbilnFxLzXRCo QEz9GGx6WEFxdZcu YxKoEHZ8LaQ5ROK8bCBr kW8doZwfznaxzB8nZqp+ CPn8t4mceENgWT2yhQY9 UT50VG17fEYmf8X3 oCN2L7XjRHAbdnmojuwd xGS0IKPvGFEkrR66Rp2u gInrBk2pGEIhSTM6RGQj cLDyQ5JeqP1tBkYs KGZrCOEnT5CxuUIdFAsz L314FGcwEvC1FCAiqbLd H0VxMLEwhLggLuO3d0H3 Hn3FDY93MH18LV02 rRFwu0N2wKI6V3NzPUTs itedhjwihJT7BIWsTTSe kZ66Vg4xiDuqOa4oHFJm MLK6OBSfrAHtZ2Uo sC9sLlMdXJBqUBUcW4Kz kTXgANhgV528XBldXzD0 FGNovvJuS8SlNFGclBhd JpA1d1C7Dq0WOs50 QV05SO73lUUvc3B9dCB4 L5ChGVIcbnhxwsstyQO7 HLBmYHYnqH30Ri5nkLmr Xu7tVMIvPMV3KAFu rRCcJ1RrcI1gFiObKJYn USVuN8ZkmTTjCYsaQ685 ZAeuVxT6UQUsdxKmL1Oa UBRkxPkhRhR8e3V1 Vc5KIVvnvin4S7CjGykp dHI+PW91HIMuXY28vLQb gBJqc5jelWi6PxRjMDJm MQV4xUjeRHhsg8Ba ZXI (more content not included)... Normal [facility] ED Clinical Summaryon 2022 ED Clinical Summary [facility] Emergency Department [address] [place] [address] ED Clinical Summary PERSON INFORMATION Name: LIA DESAI Age: 22 Years Sex: FEMALE : 2000 MRN: Acct#: Visit Reason: Hip pain; LEFT HIP PAIN Arrival: 11/15/2022 16:28:10 Discharge: 11/15/2022 17:02:00 LOS: 000 00:34 Check In: 11/15/2022 16:28:10 Checkout:11/15/2022 17:02:00 Address: [facility] [address] [place] [address] PCP: Provider, None PROVIDER INFORMATION Provider Role Assigned Unassigned Anusha Palomo CNP ED PA 11/15/2022 16:30:26 Zara July [employer]ATING UNIT MECH[employer]IC Nurse 11/15/2022 16:32:34 VITALS INFORMATION Vital Sign [...] verbalizes understanding of instructions given Comment: Normal [facility] ED Patient Summaryon 023 ED Patient Summary [facility] - Emergency Department [address] [place] [address] PATIENT DISCHARGE INSTRUCTIONS Patient Information Name: LIA DESAI Age: 22 Years Date of : 2000 Reason For Visit: Hip pain; LEFT HIP PAIN Arrival Time: 11/15/2022 16:28:10 Primary Care Physician: Provider, None Attending Physician: Bennie Yarbrough DO Comment: Visit Diagnosis: Diagnoses This Visit Hip pain (66596728) Sciatica of left side (M54.32) The Pharmacy at [facility] is open Saturday through Saturday from 9A [...] alcohol and/or drug addiction problems; contact the [facility] 29/10 Crisis Hotline -Text 8DLTI rx [phone]. If you received any narcotics, sedation, or [...] and treatment you received today in the [facility] Emergency Department were for an urgent problem and are not intended as complete care. It is important for you to follow up with a doctor, nurse practitioner, or physician?s assistant infant teacher for ongoing care. If your symptoms become [...] so we can reach you if necessary. [facility] Emergency Department has provided you with a complete list of medications post discharge. Please inform your industrial renderer/provider of your visit and for further instruction on these medications. Any specific questions regarding your chronic medications and dosages should be discussed with your primary care physician(s) and/or pharmacist. Medications That Were Updated - Follow Below Instructions [facility] [address], [address], [place] [id number], [phone] Updated: predniSONE (predniSONE 20 mg oral tablet) [...] Stop right away (more content not included)... [facility] Progress Note - Nurseon 11-06 Progress Note - Nurse Patient walks to room 6. Patient is alert and oriented. Patient is here for left hip pain. Patient states Saturday she was in the shower and bent over and pain started to come about. Patient stated she had difficulty getting out of the shower. Patient has bilateral low back pain. Patient was seen at [facility] on Saturday and was diagnosed with sciatica. Patient is to see her PCP next Saturday. Patient was prescribed Flexeril and Naproxen. [Electronically Signed on: 11/15/2022 16:49 EDT] Zara July DANIELLE [Verified on: 11/15/2022 16:49 EDT] Zara July DANIELLE [facility] Coding Summaryon 08-28-2022 Coding Summary HTMLBase 64 DslxdipgRPb8zAh+PGhl YWQ+BN7LKZAbI85epGNf cL9hE6YVRQhNNebtCFTB ADaTUsWfheHdUI7ueZYu ZXJu IC8+DN8kIXHzPhkspDMz d2P8lLP2A88rxw8qGIub xCK5AJGoHtMmqiwtr1uw uYs4FIvxUynbJfBa YMEckU72DYN1lN86Us54 sGMhgHSdj5xrsIp6TzFu UTXxLBA7sHypIJows1Hq HJIqM61ukZKfy1X9 IGNvbGxhcHNlOyBlbXB0 jT1mTGaamqlyg2tldxwk Lhj8bq96uMXnj1E4jUQ0 Y3UvilL3WLDujTOe QntixCUWdV2zwpgod5gx fwqdPcWqVMPcEFm6SKz1 YTKlzRkjNmXdIA63UJZ8 JQTegoMrU0UuQWMq xRznXfW0n0S2Yc1BE1OU GeoaK9RSQTFCQMxayTN+ GX81yy34K4PvBvlpLdo0 BSRpWMF8tEI5dS3c KUCfHJgfb0A3oBK3F5Jl okReiq3ze9ezHWRnJBef R25ikLWmn6X4QSUixJJ9 MTEfdFgcCbHyhZ21 Oyc+FMObcXgsu8LoHxzv z8pcr6lupSa2MtzrPOXs twYjaCwwNAP9q5XwIk5x PFWmfNP6aQN0pU2e TcEpOmO0BAloQ392GeRk mIBdTpftP57aK4SitVW+ OYTrHdt2DMRnkZyvFS5w K1DcZREqlscpxPNq oCzkJC3jHYFhzspsQFEx vU2tUXMoR2d4GtIvRfK9 JWxrD9GfPSJayqzoGl66 iJ1gIjWeJpN7WEcm E5QlapN1WDStdDBvTGrg LHE8Z82yc8A0RFOiIFSg PXI2gNB0kT1boIfqzcqc bGVmdDsgdmVydGlj KIwlXKqlU692HZYxpFmq PkNvZGluZyBEYXRlOiAg MDUvMjMvMjAyMzwvdGQ+ QANyVMJ1mMadAQDe xFPsVAlbOn0reJpzaBux UV0uRIAlnvhdRYRouU5f TNXoaEVjuIqeZL9bLJBi ejrgt790NoMqWRQ0 ZPQkuKMyT9PtlV3nVlKp MMXxYQTeR5VegAWbQMca H343UJtyLvX4ITZoasRm F2BiRXFomFklXvA2 p8N5Jn7Pk6AeyepoV5To aYVpJoCoGeezKVb1G4Ce PjwvdHI+XM20PCJtVP47 THt8HSU2mRisFOsw QHJtL5VraK8zDpIsQXZq ZGRkOyc+PHRhYmxlIHdp ZHRoPScxMDAlJyBzdHls AD4uEy9uGQBaMZEy tHiilFIhRkIla3etIMNw JNtaTB0bjBhrU2QqpZO6 QKMiq4y4Ae91Q19fB3Dm dXA+CCWgyQG4aNE0 gE2nHkFvOmS1UDsbN750 PpIocLWzEbgri3htx9my gYr1BsG7EXQqkuSgvFzp SHM3a9NiSq68D44u IHdpZHRoPSIxNSUiIHZh yHgsyu9kaU3eCd5+PGNv oMC9xOY6sD5iCwKrFnH7 DZoeR167OcLviDXq Pmpsk5igu4ijcJp6UnWg WBJvhpLizTynLXH2e9Gf Kl31Q4ZypNjdc0PzXmu8 hw10hAEeb7D4nVR5 R1AoFGTpgclnnMCfqEzq ZE2eSIJpfeimXMNosX9t NDNiD4d1RiQtOsL9DVoj E3IqmvH2HSAwoVGl FKBvySCUuS1rzjqqk6zm veyiTjGqKGRuUGn7BHe2 RZElxHefQeWwPHE5FcL5 ZAL0vTTnfJ6cpSux xisivL8qAkj+HKJ8fMCd xBQOYD5hHmtwrQJ+PHRk SLZ4qMyiPRtlVQJldP6h XMHpM7n8WvAxHcG6 ZDmfO2RzewL1MOAznLRn HWWphUCSmQ9dqkxeh0tp vpeiEdDwTJYvWVn1PSr6 LWFsaWduOiBsZWZ0 PwB3BLT1vUDqqS1arJjg mcxvcA5hWyy+QmlydGgg VCG3VVw7P6NkCac6GGCl zDajLK7rxCNfIUwj Zq8ruGqgtDxvZH7yKUXy wmnfh947NzSdf5eaFHIk aKLfRGboDJN5X96ur7R8 IVFwOXYvCHA3bGM5 mG7qpKiijjjhtXCjkOes tvFxyAdmTCajXQzrP449 SBJmwKurIxSnOZd0B3Qy Aey8KMJonEjdUR5y aZSaQKduWx3ecPptrRtr PS2cGURqjxhjd190ZzBr t8euPHQnlEGdELvtKZW3 E98mn3X7HSDyIIDj CZS7pMQ6rU2erNijbduz bGVmdDsgdmVydGljYWwt UAvcC238SEPymNomHvGz sEk5S0KsHie2KHOh dFehWK7bzDFxULzeYj8o qLnyzKnxJA9dGZVsamnj h928LiPpx2nvPZJikKJf TWejWHR3J56oj0A6 AXMwUFCrWNA0xCF0wW8j bGlnbjogbGVmdDsgdmVy aHxvAVejBHtmE914SCFt cDsnPlBhdGllbnQg KWfaDCo0J7AkUfdrcHD+ RX85IKVsDJ88iIWnkRJl g9ncrIl4QxCcWQCuPDS0 bVfpHQdrc6YcCOPz A62fdLBmr2W5QNMtdFxl yOUmYwLzwYI2lV3aFZos wcskh5rimfhmTjwkc6ro py37iM11F93cKBxi ZHRoPSIzMCUiIHZhbGln ar4trY2pGx4+PGNvbCB3 sNS0uZ6lJSVeEoY8MGmx Z596IpAfqEJgJojf y3sjn2dmfIq1OtD9DTDj bcJvnTfoLQA1i0OtBq55 D76oKLnlUSBnAPNmTBEp TIPqqLgsuq1vhJ9i Ii8+CRGtcES3mPG9pT3s LeBoRoB8IGlpO938MaJk lZUfQownL57bK9AauVD+ NIYeHne6JRUyiXiv OO1omIBeBLflTk4sGAX8 YiSpSgCaAChsU8LsJZWn erujkjzheMN2RPRwTOJz dY51Ll7bhGlaRCYs oICHwH7chdvmi1qtwzxm LfUrKQEeLIn7QTh6JTCo yZazBqDqLNV3SlA5PLZ6 xDXdwW3swUwfazpq kC1uL9HaBIEfrjtdIl75 tN9cOmIiOeI0WToxOgl+ S4wQGnPOKYceQ1uYJSCA BQyTZN6RNAjlqCB+ JEXnVHO4wShbDOrcVMVn jN1cFOYuI7m0KuLsVrT4 YBdwL6UwJSPxqeggNs94 qA1zKeWtZhH5YUhs M7BbxtP5XAXzdOHhOXbr OZJ8P00wk8B1LNCxSZCs TOM4zQS1wE9vkAzeskdd bGVmdDsgdmVydGlj MZdlIVsgB551MFGalNjd XhY1JtBiFnIqKJP7V7Bi Mcg1XBWozLlxWO4dhKXb XKjhUu7ofHgkpXta EJ9pWZFdikhkAOQsmR9e FNVntSVtiDnyAN4eTHHj nojfy017JlNeTNF2FKNt nFBdF9OjuN6kEdLm YDXbOSLxF2KpiKYbNJqr M956ASvnZrJ8TWLfexZu S8EzBMNbvJrkOtA4z1O1 Qq6oVPZMUDZicwdo dGQ+UQTuZXD3tXdnNHhv HLYpaU7bMAPhH9s3FaLj IyV8YDrgX5YePQNwauxg Ih84hK5qByGcQrC6 BMjvO1MgssH4JDIolUZw MVchRSB6V39ca3Y4JYXr UINmDVP1nHB4oA9chNoy bjogbGVmdDsgdmVy xDzkZWvxIMcwK992RCKt cDsnPkZFTUFMRTwvdGQ+ JIKdPVY4iDrcFTqzKYAy dA6mVZNrD6t0RrOu SdD1ARtlB3PgKTLyzwro Kd05eL1yHtHoQaK4LVqf D1RsjlS8RSXdkTClPKyz LKY1H41et3C2QQFu EMMyBQT9gSI9wN5kgDxl bjogbGVmdDsgdmVydGlj HIicHIfaI881CANuaJrk By4SZQ50SZ08Y6Fy PjwvdGFibGU+PHRhYmxl IHdpZHRoPScxMDAlJyBz tIgdER5jVi3jLDHwGWOs dRipkDZiIkAta0lo KVCnIJzeJG0nwDbnG7Io jWL2XTZht4h9Og71O62k O4TliQC+OUEzxPS2uJF9 tB2aRoWyWeG0YPth Y122NhMuxCAjPlgtw3oo e3svkBv3VcRvCITnqmAq eRjuAWS5j0NoJc78N65p IHdpZHRoPSIyMCUi LULgrKfjjm0nqF0pNc2+ NONjnRN0uRP9lV1kNjNz DmO7LCsjR462LgAjePAm AsjrR35sB7KzjSP+ XEJeYop9UHUlqGdtFD2c kAKbTWskUy9nGOB3VpDb AmCsSPyjQ8PcYWHxgnto qdkskWG9JEJsTSCn hH91Zt5rxQmuMr1wCRVv MIK8NQMkzWBdS2NveQ9u GwCaSRLiHAKqN6RyxDFx SOklW013XKmnFdF7 OCFwftPwF1TvQOYtzDnm VtY4n2L0Te4QbBweyRGp OM1wKdOgRBc4Y2WuRde7 PTEzxSziJY8ooMRr KRymBv3lxIvjvPbaMF9c COPxnfxgi775RgTms5by UZXznDXdXKejGCE4U82y k1R6KTOqTMJqKRZ6 uOX7jF2riRdhwwjqkTEn dDsgdmVydGljYWwtYWxp D156EGCdrIxaUlZLPvw2 O8UxHmu3KTRboTfg FX5oqQToAFxdVo3xqDoc oIwuID6fATZtjetow447 CmAdd3reJIPvbHDoZKcz JPV9A20zr1T8NWUk VOJfOYH9pZE2gT4hmQoq bjogbGVmdDsgdmVydGlj NXszXQbhG296VRXeeXdw Nu1BPma9Q9DgGaz3 AWLucWaaTW1ykWRiXWuv Eb6jeIzfvAtwYQ1jCYSx zifzs549CuLwe0kaFFOq kOBpVIvgPKL8K18m s4M6KCPiDZRfIJR9oYP0 mI5dnZtyjadhyFPgpWbf thTpoMynKDvmITuoN989 IHRvcDsnPlBheWVy OjwvdGQ+JT55rk18F9Gj OxeoPpx2PKKtMHT4gDO7 cS8uITKuPUmsk4V2wNH0 Y4EbiaZnez0ol2fe YXB (more content not included)... Normal [facility] Physical Therapy Noteon 08-07 Physical Therapy Note [id number] #[id number] [facility] hCG Quantitativeon hCG Quantitative 3.0 mIU/mL High 0.0-0.6 [facility] Comment on above: Result Comment: Post -Menopausal Reference Range is: 0.1-11.6 mIU/mL Performed By: #### [id number] ####[facility] ([facility])[address] [place] [address] Coding Summaryon 08-16-2022 Coding Summary HTMLBase 64 FmaycuhgTJn8qNv+PGhl YWQ+IT9CCFXkH37ivLUw yX7UK7tZSZ1VGDCUVGTY EC6VJM9zyJL8ITpjU9Qy biAv UmqmbGJjOH80PUm2OTA6 rFxbFPoiaE1ooAQyE9i5 UzBrAP96aV53UHqnJLFv IxF0PcCoepmptBVb F2hfYuAksKRoKus+PHRh YmxlIHdpZHRoPScxMDAl ZoJikAvqLM8sKh6lNATr LWNvbGxhcHNlOiBj n6reMUMhXFurMB2zmJvq V4OsfQG3MQFyo1g2Nm11 dHI+MHLnTMQ6uGlyKAox h586HeEqk9nlTID2 dDJlWBkgFBD1O03jc9M9 WALrLNPyQOG2uRI8aE6w bNzbvoejP8EtgNMlEoJ1 JWC9kDKidR8ouEac lrxdcC7zSit+N07GSM6Y FQREFA5PMuc2F5AjNmnr dHI+RB99WJIqKD97yGDq aBTlp2qdwFe4DmDs FORhHTH6vOxjSPbek7Nd VSNwP58wzZOph0I5RCJa cKdioQDsLlMjdHL8eY9y VZlgicwyk3sghhtv Dycyz6mdai45kP44N75g IFmfNOSaANC8AKQqZMOu dKtgzi1edL9wXi6+IDxj o2ffc2feiGz1ArNu MVVotyQovGhtRMM3c9Oq Ck53E0PkqZfuv8IrEyz6 mr24eVTnc3G4bLS4HSjb KVVeiX4uDNniBrH7 PVEmEqDkkT69rWTzRSek Be5meEsulEsiJE5eMJLg ynroRADpdW6bOFYzzFNn jZauYI0nADHifkhx y105UnCvDOE2HOEdmVNp X1SfrZ2vGtOkYKXgPKFt Y1PkdWElQElwT628KAlh CkU4CLTanoDaP3Sc HSBweKrrLjS5s5T4Er7F w3ZunolfRCS0JNfiCTT4 UsSnEgDvMpJ0M0EqSvp9 ISRowAjrBG1gY2Pj RTLcyjancprmlEB5LBCs BAInyK56mAIxRRboBx1x n5L9z470XWSyUVSjkZ92 Kk0aiSefIVKmgJFK sU7actfnh1bioqrkTgUq XZGcCJb1KWc2PPOmkFob HvSuTDJ1JkG1AKA9dJGc rQ2rkLffbujmsL6d Oyc+H09lsU1rDFX2GMJ4 kfdoKGDtgkCvBK97FV11 T9KdExaraXAcrWT+PGRp nlLxpVtsPU8sAzGd z1lqv1JdLQffM7KeYALk RDxdIhk3ESTcPKR0gKH5 gO9cNUCcWXcao0A1zEU1 D9SaoqLfce7lh1tz SGYdZMzbU83raAEyk9T4 ACTklMJ0NALrsEkmCvFq hT14Uhf+QASmwCnfj0Ez Ebahv7pwc2jbkJr2 IjMwJSIgdmFsaWduPSJ0 t2ZmYw56M58rBRwyCOMy UNMzGSQwOXOcnPexqj0i eX9cSr6+PGNvbCB3 eZD9gL5rMYQtPzF5CGax M394RgHydCIfRcyky5ro s9rqiLx0FcJvJDCmppZk aYcbTHQ5s6CnYv76 Y76fKUqcWLLnDKFcSZLh UTKrpZkglh2zhH0oPp9+ LH9qj4kyrm12xY02iNM+ LCIpIZZ2dKqrISmj JCCcrQ1fBYeoAvC7JIZv FdXemZ24jIOcOGrzRj2r fUygxHksAI3nOKJbldka v153YjGlo4ikOTBi wEQfFIygMEO3V38fi6G6 LNSrPANeMSJ8cXN5dS2r bGlnbjogbGVmdDsgdmVy rUywUTooAYutO812 IHRvcDsnPlBhdGllbnQg GbViJLd6A0GrEjk9PNNa zHoqZW9erZHbGDjfZz8y fRbquQtfWA1pBUIt owbio986HkJek6hyIXLf mSNoQJqgIZB1Y96jo1P2 EPQuBUWkVIN8aQT4jO4h bGlnbjogbGVmdDsg skBkqOelUVmtFWtaV409 IHRvcDsnPkJpcnRoIERh uDA9ST20HJ58qDLdu2M0 xTC3O5NjWGYzrimt pvwonOR0OBOdKGOxgI60 Fm3qmHzvOy9jLKNsZUY5 UCLovLMfE0PhqE5mFpNx BCWyXHMwC7KyuZHj UAkcE563ZNijSnM1DDIy jlRnI4LaEVYuwIulFeW8 x5W1Pf0ZN4C4LA89AG14 hYFhg3T6lGT3C7Ol WRHcxzflndumzYJ6QMBi SAXjnJ54Bc7bzNnbUs8l ZUIzIHI3ASVccAIhR3Vc mJ2qZlMkBBAcCCIi S6NtvXLoISwxH850SHsc ZyY2TLZzimGeA0ThIWMj xNswSvF3j9W5Ca4UALx4 VO05BV88gIEim6U9 rTV9Q4OtXMHklyowdafd cWN5SQSdJATslW17Hd3p uBhdZk3zNDUiEBW5SPZi mTChN2CaxX5nZiTx ZXZrMZMvJ3GewBUjPGvj K290MSzpDqN6ENNrclBk F9FtRJHmjXdrVcD6p4G7 Gg6GGDNbLA15RVU6 nLT3CF44JT03C2FnKcvg dGFibGU+PHRhYmxlIHdp ZHRoPScxMDAlJyBzdHls AD4jNq1bBEVtYRMw wOxoxNBvNhFym2sxYFCz NIspUH9yePhkY7KkeSH8 DBSpx2y4Si98J33gW5Zy dXA+RIToqXY4tEM4 xZ5sKfWpRcP9IXumI100 WzTnaBKiKkymj1uul3uk yJa6YhR3MDHlhoIoiRdw VQJ4b0WrBi46H47r IHdpZHRoPSIxNSUiIHZh sEfmpk8atJ1nRz5+PGNv bPF1qTQ9mS6vUpGdRxE9 TQoyS430KuFcyKAs Qdfqp5cti2nqtCj8EkHo CNKtshDbhHicNPL3m3Ed Yb62U5SotEtam3MsTqm8 en61rAQgh1B9qQX0 L6WuZWNlzphhhTGaqRbx UP4iHFXtymvsIJVexY3t LJVyW4d1KiKcEgG4NAfb Z0NoopG9OSLosNEw GFcuDKX8L14fr1K9LEZj WBOlXNQ8sZL5jT1zqFmn bjogbGVmdDsgdmVydGlj XBtoFOfbZ293FPZo oGtuPSJreE7uJXZwjZMr vQnuKN3qYVHyywujXykD TEJFUlQsIFNIRUxCWSBM TZXBCvG1E2AbRpf9 DCKiwCnpQE2pcJVdITnd Mn0ymEdqzNkbOJ4fWIVj wmajMEZrxL3gFYIzpTMp aPvuWU1oFDUuiotq d134MvTtMLM6KABhtTQb B3KohU2nQwMxXYNqSDFt I5VuoRHbHYxoW277UXwq BfN2LRCdqaCgL9Fs FIPqdSoxTvR5d8J5Oj8f Ij1sAs5fFYBfUO50QN79 xZLxc3H9vVP8K2CaMLFz idubpajbgKP0HBAw ZOLiqQ56qUSpPDxfAa9s x7V9k308QBHfNUMavU34 Pu4ksTgwOLCoiXSJdF7w bqrhi4othnfdTsSm BNUwGWr9HNx4LZDofPwu RoTbZRD8ExA2MGF4gBVm rG4zgDqrdxaojJ6cTfj+ RwHaNMNeduH8Z3Pa Ttl5YRXrzReyKH3fvTGf PLquAv0jrZgzkUyyCB4k HHVmlozfEJCtmE1iXJBf yBTocFdlCD9wKOHd iujlv108FdPgVOR4TZBg vFLwQ9ZgiH7mNaLtJPKv BKKvS0VmfMYjKRseA028 XAokYgG8UCNebdBl W1EqDKJpcLdmSqB7n9T4 Gh3IZX7GDYC7K6TbFty9 SAWqkZvhCO4hfBNuUUcb Ao8ejJfapUcdQB3m LOUlduhvVUMrsT7xLPUs pACneIroZD8hBRVmxdou i980IvOpBBK3EIZfpXEg D1KvbS1pRwSqXJLa WCAyJ2HmkUTzIWhgQ983 HYzmJjT3VWUlbeOfV5Hz RMChoJnwWzB2x5H4Zn7T kVQnP4EdB1g1P8Nu PjwvdHI+PX42TBKlZZ32 kQQmyPAyk5auuTx1SdQf SKLwURC5uRkoKXtto3Rd BOSeC16enKKks9T4 IGNvbGxhcHNlOyBlbXB0 pK5mJVxrmshzo0lzzbow Lacud9uszz56tX76G83w IHdpZHRoPSIzMCUi YZEhuYqlxj6xpH9sOr6+ DXHobFK5gGW2kR0nKtPi ImP6EUpkB545HpCigFBc Ozgxa9rve2meaHf3 IjIwJSIgdmFsaWduPSJ0 o9XyFw32S57oKYwiHGLi BXFcWAZjVTLokVnclu7p yX5oYn6+PP7da9wd ay83rH29vYH+PHRkIHN0 lMzhHOatDBBkfE6zQEzb AvN5UZQvQcDrtQ18vNUw KCjdKj2vyHvxpTui PX5rDNTupsllb948FbVb e9stQGYmpTGgTDciYQD5 T30hv6M7FQLxIDGeWAJ2 iCD0fM4nbYxuipjl bGVmdDsgdmVydGljYWwt HWofV148GKYtbQhkUoJa iQWgU1wgfgGWLP7tOrih dGQ+IAVlJXM0eBrt IDbzISZyxC7oWPKjY4y5 LvPiGwK9BRbzC0QwleE0 YKBmnAAmJAIxwMPArP4f dnpwa8gwkzeeRvZf VRNqDXw4CPe9LZUsmZqq NdMwGPZ0FmN3FUI0kFWk mY5mcMxbkftllR0dRzc+ RklOOjwvdGQ+PHRk EFC1iJrhRGohXQMelI6f JFWsS5v2OkHxAmG9ZNer Z7OedyH2RQUrtKNpGXYn wFETcV5lcfqhg3gm ohkxYyQvSIIaYWc5YTz5 NXFshEhxDyUcDLP5PsT2 LTK5wZTnoT2qaYprhlal zK2qSnu+TVJOOjwv dGQ+XNCcJMK2dRarUKzc OZUovE8xHRMvF8d2AqKl RjR3SUdgQ6KjnoD9RKLv pKAdXIQnaWXIuJ0u lykoo9thlnkhGkFkPNNr DRg0CZg9CRZqbGnpEsEw GHO9ScO2VQX4mBIpwS7j jAspgartbP3uWvm+ LNZ5RTT6QW66KZ10U8Vo PjwvdGFibGU+PHRhYmxl IHdpZHRoPScxMDAlJyBz xUirNZ6uJd6bSYPu LWN (more content not included)... Normal [facility] .Auto Diff - Auto [place] % 7 % Normal 12 [facility] Comment on above: Performed By: #### 1 [id number] ####[facility] (DEFAULT)[address] [place] [id number] Baso Abs# 0.1 x10 Normal 0.0-0.2 [facility] Comment on above: Performed By: #### 1 [id number] ####[facility] (DEFAULT)[address] [place] [address] [id number] Basophils/100 WBC (Bld) 0.8 % Normal 0.2-2.0 [facility] Comment on above: Performed By: #### 1 [id number] ####[facility] (DEFAULT)[address] [place] [id number] Eos Abs# 0.0 x10 Normal 0.0-0.4 [facility] Comment on above: Performed By: #### 1 [id number], [id number], 5180290, 9058912, 08468185 ####[facility] (DEFAULT)[address] [place] [address] 34805 Eosinophils/100 WBC (Bld) 0.4 % Low 0.9-4.0 [facility] Comment on above: Performed By: #### 1 [id number], [id number], 2243553, 7577692, 98856907 ####[facility] (DEFAULT)[address] [place] [address] 54752 Lymph Abs# 3.0 x10 High 1.3-2.9 [facility] Comment on above: Performed By: #### 1 [id number], [id number], 7890064, 4867490, 81276410 ####[facility] (DEFAULT)[address] [place] [address] Lymphocytes/100 WBC (Bld) 25 % Normal 14-48 [facility] Comment on above: Performed By: #### 1 [id number], [id number], 4470266, 0630004, 15045154 ####[facility] (DEFAULT)[address] [place] [address] [place]ie Abs# 0.9 x10 High 0.0-0.8 [facility] Comment on above: Performed By: #### 1 [id number], [id number], 3657451, 9864401, 06823497 ####[facility] (DEFAULT)[address] [place] [address] Neut Abs# 8.1 x10 Normal 1.5-9.2 [facility] Comment on above: Performed By: #### 1 [id number], 3665587856, 4490731, 4870819, 93945613 ####[facility] (DEFAULT)[address] [place] [address] 91322 Neutrophils/100 WBC (Bld) 66 % Normal 44-88 [facility] Comment on above: Performed By: #### 1 [id number], [id number], 2802252, 4350994, 55511578 ####[facility] (DEFAULT)[address] [place] [address] 41227 BMP Standardon 08-11-2022 eGFR Non AA >60 Invalid Interpretation Code [facility] Comment on above: Performed By: #### 1 [id number], [id number], 0558326, 0172581, 44273021 ####[facility] (DEFAULT)[address] [place] [address] eGFR AA >60 Invalid Interpretation Code [facility] Comment on above: Performed By: #### 1 [id number], [id number], 8183392, 4939500, 10757481 ####[facility] (DEFAULT)[address] [place] [address] 87608 Anion gap [Moles/Vol] 18.5 mmol/L Normal 5.0-19.0 [facility] Comment on above: Performed By: #### 1 [id number], 3829446972, 2084023, 4918488, 73494945 ####[facility] (DEFAULT)[address] [place] [address] 71675 Calcium [Mass/Vol] 8.7 mg/dL Low 8.9-10.3 [facility] Comment on above: Performed By: #### 1 [id number], 0670637304, 8846334, 3788241, 48140882 ####[facility] (DEFAULT)[address] [place] [address] 70463 Chloride [Moles/Vol] 100 mmol/L Low 101-111 [facility] Comment on above: Performed By: #### 1 [id number], 7198282684, 5308097, 8728757, 06148348 ####[facility] (DEFAULT)[address] [place] [address] 02581 CO2 [Moles/Vol] 24 mmol/L Normal 21-32 [facility] Comment on above: Performed By: #### 1 [id number], 5792304630, 0822254, 6525668, 17378651 ####[facility] (DEFAULT)[address] [place] [address] 08541 Creatinine [Mass/Vol] 0.57 mg/dL Low 0.60-1.30 [facility] Comment on above: Performed By: #### 1 [id number], [id number], 6629943, 1643090, 34452248 ####[facility] (DEFAULT)[address] [place] [address] 60791 Glucose [Mass/Vol] 98.0 mg/dL Normal 74.0-118.0 [facility] Comment on above: Performed By: #### 1 [id number], 9644946544, 4876014, 1258711, 01650056 ####[facility] (DEFAULT)[address] [place] [address] 33094 Osmolality 274 mOsm/L Invalid Interpretation Code [facility] Comment on above: Performed By: #### 1 [id number], [id number], 3751604, 2867388, 50973889 ####[facility] (DEFAULT)[address] [place] [address] 37664 Potassium [Moles/Vol] 4.5 mmol/L Normal 3.6-5.1 [facility] Comment on above: Performed By: #### 1 [id number], 4424630956, 3376256, 9932087, 38213331 ####[facility] (DEFAULT)[address] [place] [address] 71739 Sodium [Moles/Vol] 138.0 mmol/L Normal 136.0-144.0 [facility] Comment on above: Performed By: #### 1 [id number], 6886034578, 3936024, 0524754, 89414931 ####[facility] (DEFAULT)[address] [place] [address] 28950 Urea nitrogen [Mass/Vol] 9 mg/dL Normal 8-26 [facility] Comment on above: Performed By: #### 1 [id number], 5495033254, 3636155, 7055933, 30503716 ####[facility] (DEFAULT)[address] [place] [address] 95775 Urea nitrogen/Creatinine [Mass ratio] 15.7 mg/mg Normal 4.6-16.2 [facility] Comment on above: Performed By: #### 1 [id number], 1857550364, 8461140, 4262799, 26022725 ####[facility] (DEFAULT)[address] [place] [address] 76978 CBC w/ Auto Diffon 3 Erythrocyte distribution width (RBC) [Ratio] 14.1 % Normal 11.5-15.0 [facility] Comment on above: Performed By: #### 1 [id number], 1109166478, 8759622, 3108751, 90240918 ####[facility] (DEFAULT)[address] [place] [address] Hematocrit (Bld) [Volume fraction] 36.8 % Normal 33.7-40.4 [facility] Comment on above: Performed By: #### 1 [id number], 8465529327, 8156991, 7148360, 17184879 ####[facility] (DEFAULT)[address] [place] [address] Hemoglobin (Bld) [Mass/Vol] 12.1 g/dL Normal 11.3-15.9 [facility] Comment on above: Performed By: #### 1 [id number], 2222873665, 3747034, 6521826, 05155292 ####[facility] (DEFAULT)[address] [place] [address] Man Diff? Auto Invalid Interpretation Code [facility] Comment on above: Performed By: #### 1 [id number], 2244274581, 4908301, 6021784, 66331627 ####[facility] (DEFAULT)[address] [place] [address] MCH (RBC) [Entitic mass] 28 pg Normal 24-34 [facility] Comment on above: Performed By: #### 1 [id number], 3787025492, 3429893, 6399525, 99739135 ####[facility] (DEFAULT)[address] [place] [address] MCHC (RBC) [Mass/Vol] 33 g/dL Normal 26-37 [facility] Comment on above: Performed By: #### 1 [id number], 7261420604, 8871277, 2785936, 58199052 ####[facility] (DEFAULT)[address] [place] [address] MCV (RBC) [Entitic vol] 85 fL Normal 81-100 [facility] Comment on above: Performed By: #### 1 [id number], 0643323903, 7358929, 6508433, 99431745 ####[facility] (DEFAULT)[address] [place] [address] 21049 Platelet 367 x10 Normal 138-427 [facility] Comment on above: Performed By: #### 1 [id number], 4282152393, 5025714, 0749388, 37353886 ####[facility] (DEFAULT)[address] [place] [address] 01392 Platelet mean volume (Bld) [Entitic vol] 8.1 fL Normal 6.3-10.2 [facility] Comment on above: Performed By: #### 1 [id number], 2424564994, 1128712, 3220170, 09327670 ####[facility] (DEFAULT)[address] [place] [address] 55930 RBC 4.33 x10 Normal 3.70-5.30 [facility] Comment on above: Performed By: #### 1 [id number], 6230519073, 4788298, 9567327, 55361672 ####[facility] (DEFAULT)[address] [place] [address] 63359 WBC 12.2 x10 High 3.5-10.5 [facility] Comment on above: Performed By: #### 1 [id number], [id number], 2117833, 2075368, 25033392 ####[facility] (DEFAULT)[address] [place] [address] 49963 ED Clinical Summaryon 2022 ED Clinical Summary [facility] - Emergency Department [address] [place] [address] 18464 ED Clinical Summary PERSON INFORMATION Name: LIA DESAI Age: 21 Years Sex: FEMALE : 2000 MRN: Acct#: Visit Reason: Vaginal bleeding - < 20 wks ; 7 WEEKS, VAGINAL BLEEDING Arrival: 08/11/2022 12:41:34 Discharge: 08/11/2022 16:30:00 LOS: 000 03:49 Check In: 08/11/2022 12:41:34 Checkout:08/11/2022 16:30:00 Address: [facility] [address] [place] [id number] PCP: Provider, None PROVIDER INFORMATION Provider Role Assigned Unassigned Adamaris Jaeger PA-C ED PA 08/11/2022 12:44:39 Arabella Romano 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 Resolved. Comments: 11/23/2020 CDT 16:07 CDT - SYSTEM Problem added by Rule (IC_COVID19_AUTO_PRO BLEM) following 2019 Novel Coronavirus (CoVID-19), MILY L from Nasopharyngeal Swab collected on 17-AUG-2021 16:44:00 EDT tested positive for COVID-19. no history ([id number]): Resolved. Contact dermatitis (47536241): Resolved.. Surgical history: Tonsillectomy (364731024).. Family history: No family history items have [...] quant draw (more content not included)... Normal [facility] ED Note - Provideron 023 ED [...] Resolved Disease caused by 2019 novel coronavirus ([id number]): Onset on 11/23/2020 at 20 years. Resolved. Comments: 11/23/2020 CDT 16:07 CDT - SYSTEM Problem added by Rule (IC_COVID19_AUTO_PRO BLEM) following 2019 Novel Coronavirus (CoVID-19), MILY L from Nasopharyngeal Swab collected on 22-NOV-2020 16:44:00 EDT tested positive for COVID-19. no history ([id number]): Resolved. Contact dermatitis (85823545): Resolved.. Surgical history: Tonsillectomy (782395483).. Family history: No family history items have [...] % Auto Lymph % 25 % Auto [place] % 7 % Auto Eos % 0.4 % LOW Auto Baso (more content not included)... Normal [facility] ED Note-Nursingon 08-11-2022 ED Note-Nursing Patient walked into the ED with c/o abdominal cramping and bleeding. Patient is 7 weeks . Symptoms started today and cramping is getting worse. Denies taking any medicine for pain. Did have right lower back pain a few days ago. Was 15 weeks in may, had a miscarriage and had to do a D and C. Normal [facility] ED Patient Summaryon 023 ED Patient Summary [facility] - Emergency Department [address] [place] [address] PATIENT DISCHARGE INSTRUCTIONS Patient Information Name: LIA DESAI Age: 21 Years Date of : 2000 Reason For Visit: Vaginal bleeding - < 20 wks ; 7 WEEKS, VAGINAL BLEEDING Arrival Time: 08/11/2022 12:41:34 Primary Care Physician: Provider, None Attending Physician: Andres Duval Comment: Visit Diagnosis: Diagnoses This Visit Miscarriage (O03.9) Vaginal bleeding - < 20 wks ([id number]) The Pharmacy at [facility] is open Saturday through Saturday from 9A [...] alcohol and/or drug addiction problems; contact the [facility] 29/10 Crisis Hotline -Text 8NLJA uf [phone]. If you received any narcotics, sedation, or [...] sign any legal documents With: Address: When: diabetes clinical manager Within 1 to 2 days Comments: repeat hCG quant in 48 hours and can come here or follow-up with [employer] Call for follow up appointment With: Address: When: Return to Emergency Department Within As needed Comments: Return if symptoms worsen Medication Information: The exam and treatment you received today in the [facility] Emergency Department were for an urgent problem and are not intended as complete care. It is important for you to follow up with a doctor, nurse practitioner, or physician?s assistant infant teacher for ongoing care. If your symptoms become [...] so we can reach you if necessary. [facility] Emergency Department has provided you with a complete list of medications post discharge. Please inform your industrial renderer/provider of your visit and for further instruction [...] things may ma (more content not included)... Normal [facility] Extra Redon 08-11-2022 Tube Collected Yes Invalid Interpretation Code [facility] Comment on above: Performed By: #### 1 [id number], [id number], 2326953, 2541918, 69182837 ####[facility] (DEFAULT)[address] [place] [address] UA Lpizy6hd 08-11-2022 UA Amorph. Rare [facility] Comment on above: Order Comment: Urina lysis Microscopic order added on by [employer] Expert Rules system. Performed By: #### 1 [id number], [id number] ####[facility] (DEFAULT)[address] [place] [address] UA Bacteria Trace [facility] Comment on above: Order Comment: Urina lysis Microscopic order added on by [employer] Rules system. Performed By: #### 1 [id number], [id number] ####[facility] (DEFAULT)[address] [place] [address] UA Mucous Trace [facility] Comment on above: Order Comment: Urina lysis Microscopic order added on by [employer] Rules system. Performed By: #### 1 [id number], [id number] ####[facility] (DEFAULT)[address] [place] [address] UA RBC 0-2 [facility] Comment on above: Order Comment: Urina lysis Microscopic order added on by [employer] Rules system. Performed By: #### 1 [id number], [id number] ####[facility] (DEFAULT)[address] [place] [address] UA WBC 0-2 [facility] Comment on above: Order Comment: Urina lysis Microscopic order added on by [employer] Rules system. Performed By: #### 1 [id number], [id number] ####[facility] (DEFAULT)[address] [place] [address] UA w Culture if Ind Standard on 08-11-2022 Breakpoint UA [facility] Comment on above: Performed By: #### 1 [id number], [id number] ####[facility] (DEFAULT)[address] [place] [address] Color (U) Yellow [facility] Comment on above: Performed By: #### 1 [id number], [id number] ####[facility] (DEFAULT)[address] [place] [address] Culture? Not Indicated Invalid Interpretation Code [facility] Comment on above: Result Comment: Resu lt created by rule GL_MAGR_ADD_UA_CULT Result created by rule GL_MAGR_ADD_UA_CULT Result created by rule GL_MAGR_ADD_UA_CULT1 Performed By: #### 1 [id number], [id number] ####[facility] (DEFAULT)[address] [place] [address] 56440 Glucose (U) [Mass/Vol] Negative Normal [facility] Comment on above: Performed By: #### 1 [id number], [id number] ####[facility] (DEFAULT)[address] [place] [address] 71823 Ketones Ql (U) Negative Normal [facility] Comment on above: Performed By: #### 1 [id number], [id number] ####[facility] (DEFAULT)[address] [place] [address] 51827 Micro? Indicated Invalid Interpretation Code [facility] Comment on above: Result Comment: Resu lt created by rule GL_MAGR_ADD_UA_MICRO Performed By: #### 1 [id number], [id number] ####[facility] (DEFAULT)[address] [place] [address] 84375 UA Bilirubin Negative Normal [facility] Comment on above: Performed By: #### 1 [id number], 91293753 ####[facility] (DEFAULT)[address] [place] [address] 23130 UA Blood MODERATE Abnormal NEGATIVE [facility] Comment on above: Performed By: #### 1 [id number], [id number] ####[facility] (DEFAULT)[address] [place] [address] 82098 UA Clarity CLEAR Normal CLEAR [facility] Comment on above: Performed By: #### 1 [id number], [id number] ####[facility] (DEFAULT)[address] [place] [address] 17839 UA Leuk Est Negative Normal NEGATIVE [facility] Comment on above: Performed By: #### 1 [id number], [id number] ####[facility] (DEFAULT)[address] [place] [address] 80277 UA Nitrite Negative Normal NEGATIVE [facility] Comment on above: Performed By: #### 1 [id number], [id number] ####[facility] (DEFAULT)[address] [place] [address] 30246 UA pH 7.0 Normal 5-8 [facility] Comment on above: Performed By: #### 1 [id number], [id number] ####[facility] (DEFAULT)[address] [place] [address] 14403 UA Protein Negative Normal NEGATIVE [facility] Comment on above: Performed By: #### 1 [id number], [id number] ####[facility] (DEFAULT)[address] [place] [address] 33958 UA Spec Grav <=1.005 Normal 1.001-1.035 [facility] Comment on above: Performed By: #### 1 [id number], [id number] ####[facility] (DEFAULT)[address] [place] [address] 68963 UA Urobilinogen 0.2 mg/dL Normal 0.2-1.0 [facility] Comment on above: Performed By: #### 1 [id number], [id number] ####[facility] (DEFAULT)[address] [place] [address] Urine Source Clean Catch Normal [facility] Comment on above: Performed By: #### 1 [id number], [id number] ####[facility] (DEFAULT)[address] [place] [address] 54917 US 1st Trimesteron 08-11-2022 US 1st Trimester EXAM: US 1st Trimester HISTORY: vaginal bleeding, 7 weeks COMPARISON: 08/08/2022. TECHNIQUE: Ultrasound obstetrical first trimester. FINDINGS: Single intrauterine gestation which has migrated into the lower uterine segment. No cardiac activity is identified. Yolk sac is present. [place]-rump length measurement of 1.1 cm yielding estimated [...] Signature): Jori Churchill 08/11/22 4:11 pm Technologist: [facility] US Transvaginalon 08-11-2022 US Transvaginal EXAM: US 1st Trimester HISTORY: vaginal bleeding, 7 weeks COMPARISON: 08/08/2022. TECHNIQUE: Ultrasound obstetrical first trimester. FINDINGS: Single intrauterine gestation which has migrated into the lower uterine segment. No cardiac activity is identified. Yolk sac is present. [place]-rump length measurement of 1.1 cm yielding estimated [...] Signature): Jori Churchill 08/11/22 4:11 pm Technologist: [facility] hCG Quantitativeon hCG Quantitative 4616.0 mIU/mL High 0.0-0.6 [facility] Comment on above: Result Comment: Post -Menopausal Reference Range is: 0.1-11.6 mIU/mL Performed By: #### 1 [id number], [id number], 0161455, 2649246, [id number] ####[facility] (DEFAULT)[address] [place] [address] US PREG TVon 08-08-2022 US PREG TV [...] by: CHRISTIAN KATE Date: 2022-08-08 16:56 Normal [facility] Coding Summaryon 06-19-2022 Coding Summary HTMLBase 64 RhpvcrqgTBu7rJf+PGhl YWQ+OE8QRNYsU04ntCDc yI6XZ5aIKF6EVMJRTWCX QG0GQX2ycDF7RAwgH5Rg biAv QuvahLCvLQ85ROa0WQN7 kGrsIUxedU9qzCWrN8a7 KvDrUZ92sU74OVsqVIIr IxB4HsFtqdwjxXWg S5rhVeWmvYWsDgb+PHRh YmxlIHdpZHRoPScxMDAl NoMxrBrqZZ5lIf3eWOHn LWNvbGxhcHNlOiBj o9upZWJtNUruJO1gzGuz Y8XguOA8EZOfa9o9Fb19 dHI+NWQrAIY7vLxzQQod i453AnMtn7xoPKE5 xFMbRVzhTDV0W23fp6R4 UKTlICUzQFA8mMF3rQ9m iHvbtcspI4AelWLlRzK7 KUN7zQCfeK3meFrn hzhghI4iLko+T11KKO7J KGRSDX0PBaa2S2CiYpnf dHI+AU31HYGiJO55uAAs pPFjx0sscXt4VxFb PMEkQWU4gQfiDEldq1Fo FWWmG30wxGHth2G9OBQy wCecgCKcRmMxmRB5lD0i QIuhnstpo4jstumh Zgfef5gede22wA07G28e GRqgCXPuJYW9NVIpKZBa uAoubt8fuB1jUu1+IDxj x3sqa9lnkZo9NtBn ZQXwonYihQoaKCW0c2Ty Vk96Q8KjkBidd0CaUxx5 th17yRIfm9P3zMH1GOrm RDNbeI6tJIxiTiA1 PLFeFkJwgR17bTVuXCcq Mi1wvRxfuMapEF0vIZWj uwnoZJWtxI7tNQGhjOMj tBvmHT5fJIZwkjph h302TuDyGHA9SDDujHVr X8RqbE1iHcQfDFImMLWq Q6DteLJgHHynJ802LFgc TbP9CMArxoJeQ1Vx WZJtaPzfLeT1v6R1Np8A o2XrgslfSVT0PGdsZVIh KhS4UgCwGkB3L1WbHxb5 OUJcrBbrLD1jI0Lr MENhkvcakfkddLB1VVMl HUXtwD51vJWlWLzkBb9p g1D0j546XOJnHWJcqO13 Hl3mfOarHDYqlJRC aR5gryemo7cfugcaApAs UJKvJNx5DSw8ZOPwyOuy XgQgCUJ9HuE1IJZ0nTRr vD0uzZkyisbilK1i Oyc+P75pfC6eRKV3YIX0 opuvBYVkgxNePZ69JX45 Y2RyUbfyiHErsYZ+PGRp wyDfcYtaEG7sJaGh s3sgl5GgJUixA0BiDOKl BAxlVmt2GFAuRSZ2pSF2 uJ3kVCKhQXenl0H2lXM7 I1SnneXvum8mq0ww MQQzSGdcP68qnFRcv1U5 HULqoOX4EVSskWkbVrKd qU35Mwp+XLKkiNgbi7Bn Rdmpo3hif3iziWa1 IjMwJSIgdmFsaWduPSJ0 q6QiNo17H52jQUnfQBTi SHJmJKTvPLFxiJajqi5x bN0vNk1+PGNvbCB3 xFT6xG1aRBPdLsI7KChq L668RmXiiYQjPwqka8kw u8xozNe7BqAzKHIuusSm kXekQVF7m0NbYb49 W26bMHywCCUlTXKaCXCm ZKEihKskyk9pwW2uYd1+ AV9fc2smtv81fE15lGC+ BUPnVPC4mTheUMqi ZHGleM2zDWmkDjX6DGGo OjXjrP19uGTuYJeeZi6t bUhetNqeFZ0nXOExmqoh e795NkHiw1qaUEBr dYAuEHtxUWO8Z41gt7H4 LBMzBEIrNHX1iLK4hJ1u bGlnbjogbGVmdDsgdmVy yXreVHevYNexS783 IHRvcDsnPlBhdGllbnQg LgGtYBv1K1BrSgm7ZNLb vEreHP6toKWxDUqzGq7h eJrihXbtCG9nSQQi usibb605IjPmq1wnGUQn gXRvINkpIKH2I82wf9L2 ICJyDQLaOJS0fXQ4oL3v bGlnbjogbGVmdDsg ewZzaGhgDYxuVNxcK844 IHRvcDsnPkJpcnRoIERh vXK6UN60LF85yDVmr9B6 oFX7W2GoFXFbpwfy nhkxwNR3FCEcQRWgyO85 Mu1xrUhyGp0dAUFkYJF5 ELSfdKAyO4DqfQ2tYeIz TDHjNCUqH9GatGNx OLcbV388ZTzpLhV3WNOv ksYlR5HgFHJoiKrvCiM4 v3A6Bz3BC6E5KR57DA78 kNNgs9F8hFR4N9Ht XGOwcbllxgvvaWZ1GOZk OTSfyQ88Sw8cwQcxFo3b XUYuEQD6WRWguOKsR9Is rH6wRtRcKINuKIIt A0PodLYgQMgvZ030DFzr RkA1HNVkquCcX7QzFRVq qEraGfJ9r2D3Ge4ECGu7 TQ49JU15oFTbr6L1 jLC7G4TzZMWlumqtfdyp mAV4TTKoEDWvwX66Wf9j cRglCb7fCPHqORP2EVVl jEClO4GbiB9kGeRe TZZdNNXvJ4MebTPfTJqt P223TCthUdM9WEZswuIq C2KsZCXbpPuxXeF1u7V0 Tz0PYVAlRX02XUG8 eCI1RJ39OL89K4KfLwha dGFibGU+PHRhYmxlIHdp ZHRoPScxMDAlJyBzdHls BY9bYx7fLQQaIVMc mXvdzTQtLdYrx8doFEJw AUyxWD2ykEuqC4QrgLG2 WLLqq8t5Yp33T03sC8Uk dXA+MMXvvOX0iEZ0 mJ3wDgYaSrR5ILitN753 SeNdwBReDitlx6irm9rb mUi7MhJ8LCBtreNiiDlm JHR7q4YcKu46D38w IHdpZHRoPSIxNSUiIHZh sHtltt0xlG2wUq1+PGNv cCW1hPR4zT5bOlVrMjT4 WInlD263XzPfcFQy Hvqss3xdf1lmuYh9IqVp LTVmjzTsfRncNDS8c3Pw Jg26J8ZifUnen9AyAsu8 mq15qWFkq2N9mKT8 O7ZsWNMycmchxWSuxOhj KP9uPBZdyielEQRsyL6y YXMfD7a0NcDxEfD8RVlf S5CnwvZ8HUQvpPGi ULplQBO8C51uh6U6XFJe VSUxEQN4aBS5qF2bdCoz bjogbGVmdDsgdmVydGlj TPuwLXhcA201HOQk tUikWQSdcW2zQDBbxZFi cPolBR5dZQPvludvVyjN TEJFUlQsIFNIRUxCWSBM IEHOUtJ5E9IyGeq9 OLVgwOyrAE6hpFKjYVly Ce5alDdbvHzrKI2yZQGi fmndHFSmpV3zYWAiaYLn wLwyMC7iPAWynmzi e795SkDeQRX0SEMdqDAa J6KukC2bSwNqRNNoOOHr X7AkpRXsLKicA016DRmz LjZ9ZDGtrtLgV9Mf ZXYfgNllAdZ8q4S1Lj3f Ro9tXy2mHUVfPY70VZ13 bLHql2X9cXY4V5GsKFMj lmdnbzmndJE1NELc HLAfuH83vDRkYEifTv0j g2X2i498ZNUdSHDchI39 Gj4ryIwuFMWjlQPWrO9u puljf4sftcwxYhKw WRGaBEq0JXy2GOOcdOdt FwWlZWH8VeQ8HCU2xOKi xD9hlTylwhrpsZ7hGdo+ BtJgLYUktaB5Q1Kl Rzv2WIAzdUjtXT8wyKEa LAajEo6zuAlgrIpqGB7a OPZavcihESAbmJ4kAWSy gEIehEbrUH7dUPPh swses892RdCbVOH0AHFs eADpL9ZicG9xZeCpTGBj RTKuW0InyGTzDAajR636 DOijUvJ7MXFyyrFg T9RlIBFceIumAaA7e6W7 Uy4FXO3RFBP7D5RuRnu5 FBImsTccGG4trPZkCHcg Gu9jyEaegYmfBD7u EETbzgspKQOdmE4xICOn nZOncRzzZR9jBJIyqeyx z784SkOpYWZ4LZOgrDKv F8VsrO9iQyHuKWLq DSXiO2GatLAbVNvfG423 QMcmShS4NKRbhrQaE5Qg IDCbkFjfGrP4h2S8Ba5M UDwvdGQ+UL26mt24 X1DvWfbjQmd2SWSgYKQ6 sOP5zA9rJQUyQArlx2A4 hPQ0D0BvgsWnyi9ev0nl KIHfKJcgK87xiMUj q7L4TAAvzFQ5MKKtkQkk WuEtiC70Twy+PGNvbGdy v5HlLdrly5hqw7eylHp0 IjMwJSIgdmFsaWdu LJG1r9ZtUp18M39zEKpy ZHRoPSIzMCUiIHZhbGln bz9yhJ9xTm2+PGNvbCB3 sQA9nT7fAiMaPsF8 KBfbG032JaNjsIIhExbu y8vfj8awqFe1YmToCVBo wtZslMroFYE4q6AmHu19 B8TdzQvof4LkPzn1 gn17yOUxs8W7tKW8A3Na UOVaqfhudRAqbHpmGD8m ELEpblxeTHRyhC8uYGHg K8r5HoEiPqZ1MEcz U5WsboD3NZFsoQNdMQOv qWFHhK1cwthux8gpsuib RlCcOEOoOPa8NOw6UKGf nWsgJqIhEFQ4AxD1 BHW3jELnvQ2hmMapwxbj pA6aQpc+HWl5t2qikFKe PL1vrBV7IG36BV10yNYz l5J0dSJ1H5CmADPx eacmlxjqnVW8DNKbAZPj oT95Sg1mhOfqLx4dHYJm PCO6TVPosZKiL7GyzA6q BsPjGMFhWPHbJ4Or cFLdTWcdM607INuaMaU8 EJUpykCuT2LbIJXeeUie HrS3u1Q3Wx1DBA46VX00 PE22fOOkl3Y4qYY1 J4YsTNJzcmlhthzfxJZ1 UQRbMRGxcM40Sn0xeGdx Is2hZFKhZUQ3GZJxcQOb A7NwzK2xRdMoOSDh AWXlB2YsgPHpFGuhD162 IVfmOuA1HYNafgErB3Sw QVAfiAszFcZ1r8D6Wa0H Wj21QE31SS15hCRl k7O4tIP7S0TmFFGqtuyc blpvgFG7PDTwDWWlqM84 Wm9riVlcRb9vWTHkUQA4 WIQxkOVlN1KfhI1u XdGtYJZjECGdA1PdoDAg PZvwN291EInlAvP5AYAh mtJcE6NbMCJwkYvmBuQ0 k2R7Mz0TCGrjovy0 E7ZlVpxgtGS+XY04FWFl BY67cDGigBPle4vgiLz8 LwPpHCTbCJP2dKtwEPec w0KmSBAjG67uuSOs c2U (more content not included)... Normal [facility] C Throaton 06-14-2022 C Throat Ordered by Discern. Normal throat jonny isolated No pathogens isolated Normal [facility] Comment on above: Performed By: #### 1 [id number] #### [facility] (DEFAULT) [address] [place] [address] ED Clinical Summaryon 2022 ED Clinical Summary [facility] ? Urgent Care [address] [place] [address] Clinical Summary PERSON INFORMATION Name: LIA DESAI Age: 21 Years Sex: FEMALE : 2000 MRN: Acct#: Visit Reason: UC - Sore Throat; UC - Body Aches; SORE THROAT, COUGH, BODY ACHES Arrival: 06/12/2022 16:17:17 Discharge: 06/12/2022 17:23:00 LOS: 000 01:06 Check In: 06/12/2022 16:17:17 Checkout: 06/12/2022 17:23:00 Address: [address] [place] [id number] PCP: Provider, None PROVIDER INFORMATION Provider Role Assigned Unassigned Birdie James HEATING UNIT MECHANIC Nurse 06/12/2022 16:19:28 Nelson Sharma PA-C ED PA 06/12/2022 16:22:15 VITALS INFORMATION Vital Sign Triage Latest Temperature Tympanic Temperature Temporal Artery Pulse Rate O2 Sat 98 % 98 % Respiratory Rate Blood Pressure /76 mmHg /76 mmHg MEDICAL INFORMATION Medications Given: Allergy Information: Adhesive Bandage; Zithromax PHYSICIAN DOCUMENTATION DISCHARGE INFORMATION: Discharge Disposition: Home Discharge Location: Home PATIENT EDUCATION INFORMATION Instructions: Cough, Adult, Qvvg-in-Hhba; Pharyngitis, Egzu-ss-Oway Follow-Up: With: Address: When: None Provider [address] [place] [address] Within 1 week Comments: Please follow-up with your primary care provider, call the office schedule an appointment to be seen in a week or sooner for continued care, you will be notified with your results, please take as Tessalon Perles as prescribed, take pejq-jii-scegeov ibuprofen and Tylenol as needed for fevers, body aches, or headaches. Drink plenty of water to stay hydrated, and return back to the urgent care center for any worsening symptoms, concerns, or complications. DIAGNOSIS: 1:Pharyngitis; 2:Cough Patient Understands: Yes - Patient/family/careg iver verbalizes understanding of instructions given Comment: Normal [facility] ED Patient Summaryon 023 ED Patient Summary [facility] ? Urgent Care [address] [place], [place] [id number] PATIENT DISCHARGE INSTRUCTIONS Patient Information Name: LIA DESAI Age: 21 Years Date of : 2000 Reason For Visit: UC - Sore Throat; UC - Body Aches; SORE THROAT, COUGH, BODY ACHES Arrival Time: 06/12/2022 16:17:17 Primary Care Physician: Andreia, Tyson Attending Physician: Nelson Sharma PA-C Comment: Patient Education With: Address: When: None Provider [address] [place] [address] Within 1 week Comments: Please follow-up with your primary care provider, call the office schedule an appointment to be seen in a week or sooner for continued care, you will be notified with your results, please take as Tessalon Perles as prescribed, take gckm-tow-pypminy ibuprofen and Tylenol as needed for fevers, [...] these instructions at home: Medicines ? Take hvjl-iwg-mqdvipr and prescription medicines only as told by [...] things can cause a cough. ? Take qhjr-wmh-udhbiuo and prescription medicines only as told by [...] provider. Document Revised: 05/13/2020 Document Reviewed: 04/13/2019 Identified Patient Education ? 2021 [employer]. Pharyngitis Pharyngitis is a sore throat (pharynx). [...] Symptoms may (more content not included)... Normal [facility] Strep Aon 06-12-2022 Strep procedure control Pass Normal [facility] Comment on above: Performed By: #### 1 [id number] #### [facility] (DEFAULT) [address] [place] [id number] Streptococcus A Negative Normal Negative [facility] Comment on above: Performed By: #### 1 [id number] #### [facility] (DEFAULT) [address] [place] [address] Urgent Care [place] 023 Urgent Care Record [facility] ? Urgent Care [address] [place] [address] PATIENT DISCHARGE INSTRUCTIONS Patient Information Name: LIA DESAI Age: 21 Years Date of : 2000 Reason For Visit: UC - Sore Throat; UC - Body Aches; SORE THROAT, COUGH, BODY ACHES Arrival Time: 06/12/2022 16:17:17 Primary Care Physician: Provider, None Attending Physician: Nelson Sharma PA-C Comment: Visit Diagnosis: Diagnoses This Visit Cough (R05.9) Pharyngitis (J02.9) UC - Body Aches ([id number]) UC - Sore Throat ([id number]) If you received any narcotics, sedation, or [...] documents With: Address: When: None Provider [address] [place] [address] Within 1 week Comments: Please follow-up with your primary care provider, call the office schedule an appointment to be seen in a week or sooner for continued care, you will be notified with your results, please take as Tessalon Perles as prescribed, take lgcv-spa-erqdgeg ibuprofen and Tylenol as needed for fevers, body aches, or headaches. Drink plenty of water to stay hydrated, and return back to the urgent care center for any worsening symptoms, concerns, or complications. Medication Information: The exam and treatment you received today in the [facility] were for an urgent problem and are not intended as complete care. It is important for you to follow up with a doctor, nurse practitioner, or physician?s assistant infant teacher for ongoing care. If your symptoms become [...] so we can reach you if necessary. [facility] has provided you with a complete list of medications post discharge. Please inform your industrial renderer/provider of your visit and for further instruction on these medications. Any specific questions regarding your chronic medications and dosages should be discussed with your primary care physician(s) and/or pharmacist. New Medications [facility] [address], [place] [id number], [phone] benzonatate (Tessalon Perles 100 mg oral capsule) [...] these instructions at home: Medicines ? Take bxrd-jqu-wwvcans and prescription medicines only as told by your doctor. (more content not included)... Normal [facility] US PELVIS AND TRANSVAGon US PELVIS [...] by: ANGELA SCOTT Date: 2022-06-04 06:57 Normal [facility] US PREG TVon 05-16-2022 US PREG TV [...] CHRISTIAN KATE Date: 2022-05-16 18:15 Normal [facility] HEP B SURFACE ANTIGEN SCREEN on 04-20-2022 HBsAg Screen Negative Normal Negative [facility] Comment on above: Performed By: #### H BSANS #### [facility] [address] [address] [address] Jeronimo Melgar HEPATITIS C VIRUS AB W/ REFL EX QUANTon 04-20-2022 HCV AB <0.1 Normal 0.0-0.9 [facility] Comment on above: Performed By: #### H CVPCRR #### [facility] [address] [address] [address] Jeronimo Melgar Interpretation: Comment Normal [facility] Comment on above: Result Comment: Nega tive Not infected with HCV, unless recent infection is suspected or other evidence exists to indicate HCV infection. Performed By: #### H CVPCRR #### [facility] [address] [address] [address] Jeronimo Melgar HIV 1 AND 2 WITH REFLEXon HIV Screen 4th Generation wRfx Non-Reactive Normal Non Reactive [facility] Comment on above: Result Comment: HIV Negative HIV-1/HIV-2 antibodies and HIV-1 p24 antigen were NOT detected. There is no laboratory evidence of HIV infection. Performed By: #### H IV12 #### [facility] [address] [place] [address] Dr. Jeronimo Melgar RPR QUANTon 04-20-2022 Rapid Plasma Reagin, Quant Non-Reactive Normal NonRea<1:1 [facility] Comment on above: Result Comment: Plea se Note: This test does not meet current guidelines for screening and diagnosis of syphilis. This test is intended for following treatment response in patients being treated for syphilis infection. To screen for syphilis infection, a reflex cascade that includes both RPR and a treponema-specific assay should be utilized, such as Treponema pallidum (Syphilis) Screening [place] (684391) or Rapid Plasma Reagin (RPR) Test With Reflex to Quantitative RPR and Confirmatory Treponema pallidum Antibodies (669372). Performed By: #### R PRQ #### [facility] [address] [place] [address] Dr. Jeronimo Melgar RUBELLA AB IGGon 04-20-2022 Rubella Antibodies, IgG 1.85 index Normal Immune >0.99 [facility] Comment on above: Result Comment: Non- immune <0.90 Equivocal 0.90 - 0.99 Immune >0.99 Performed By: #### B OX #### [facility] [address] [place] [address] Dr. Jeronimo Melgar BOX TEST SENT OUTon 04-19-19 23 SENT TO REF LAB 04/19/2022 Normal [facility] Comment on above: Performed By: #### B OX #### [facility] [address] [place] [address] Dr. Jeronimo Melgar CBC AUTO DIFFon 04-19-2022 BASO # 0.1 103/ul Normal 0.0-0.1 [facility] Comment on above: Performed By: #### B OX #### [facility] [address] [place] [address] Dr. Jeronimo Melgar Basophils/100 WBC (Bld) 0.5 % Normal 0.2-2.0 [facility] Comment on above: Performed By: #### B OX #### [facility] [address] [place] [address] Dr. Jeronimo Melgar EO # 0.1 103/ul Normal 0.0-0.7 [facility] Comment on above: Performed By: #### B OX #### [facility] [address] [place] [address] Dr. Jeronimo Melgar Eosinophils/100 WBC (Bld) 0.7 % Critically low 0.9-7.0 [facility] Comment on above: Performed By: #### B OX #### [facility] [address] [place] [address] Dr. Jeronimo Melgar Erythrocyte distribution width (RBC) [Ratio] 12.8 % Normal 11.0-15.0 [facility] Comment on above: Performed By: #### B OX #### [facility] [address] [place] [address] Dr. Jeronimo Melgar Hematocrit (Bld) [Volume fraction] 43.7 % Normal 36.0-48.0 [facility] Comment on above: Performed By: #### B OX #### [facility] [address] [place] [address] Dr. Jeronimo Melgar Hemoglobin (Bld) [Mass/Vol] 13.1 g/dL Normal 12.0-16.0 [facility] Comment on above: Performed By: #### B OX #### [facility] [address] [place] [address] Dr. Jeronimo Melgar IG # 0.02 10e3/ul Normal 0.00-0.03 [facility] Comment on above: Performed By: #### B OX #### [facility] [address] [place] [address] Dr. Jeronimo Melgar IG % 0.2 % Normal 0.0-0.5 [facility] Comment on above: Performed By: #### B OX #### [facility] [address] [place] [address] Dr. Jeronimo Melgar LYMPH # 2.6 103/ul Normal 1.2-3.8 [facility] Comment on above: Performed By: #### B OX #### [facility] [address] [place] [address] Dr. Jeronimo Melgar Lymphocytes/100 WBC (Bld) 27.3 % Normal 20.5-60.0 [facility] Comment on above: Performed By: #### B OX #### [facility] [address] [place] [address] Dr. Jeronimo Melgar MANUAL DIFF REQ NO Normal [facility] Comment on above: Performed By: #### B OX #### [facility] [address] [place] [address] Dr. Jeronimo Melgar MCH (RBC) [Entitic mass] 27.7 pg Normal 26.7-34.0 [facility] Comment on above: Performed By: #### B OX #### [facility] [address] [place] [address] Dr. Jeronimo Melgar MCHC (RBC) [Mass/Vol] 30.0 g/dL Normal 29.9-35.2 [facility] Comment on above: Performed By: #### B OX #### [facility] [address] [place] [address] Dr. Jeronimo Melgar MCV (RBC) [Entitic vol] 92.4 fL Normal 81.0-99.0 [facility] Comment on above: Performed By: #### B OX #### [facility] [address] [place] [address] Dr. Jeronimo Melgar MONO # 0.8 103/ul Normal 0.3-0.8 [facility] Comment on above: Performed By: #### B OX #### [facility] [address] [place] [address] Dr. Jeronimo Melgar Monocytes/100 WBC (Bld) 7.8 % Normal 1.7-12.0 [facility] Comment on above: Performed By: #### B OX #### [facility] [address] [place] [address] Dr. Jeronimo Melgar NEUT # 6.1 103/ul Normal 1.4-6.5 [facility] Comment on above: Performed By: #### B OX #### [facility] [address] [place] [address] Dr. Jeronimo Melgar Neutrophils/100 WBC (Bld) 63.5 % Normal 43.0-75.0 [facility] Comment on above: Performed By: #### B OX #### [facility] [address] [place] [address] Dr. Jeronimo Melgar Platelet mean volume (Bld) [Entitic vol] 10.7 fL Normal 9.5-13.5 [facility] Comment on above: Performed By: #### B OX #### [facility] [address] [place] [address] Dr. Jeronimo Melgar PLT 399 103/ul Normal 150-450 [facility] Comment on above: Performed By: #### B OX #### [facility] [address] [place] [address] Dr. Jeronimo Melgar RBC 4.73 106/ul Normal 4.20-5.40 [facility] Comment on above: Performed By: #### B OX #### [facility] [address] [place] [address] Dr. Jeronimo Melgar WBC 9.6 103/ul Normal 4.0-11.0 [facility] Comment on above: Performed By: #### B OX #### [facility] [address] [place] [address] Dr. Jeronimo Melgar CULTURE URINEon 04-19-2022 CULTURE URINE Culture Observations: LIGHT GROWTH OF MIXED GENITAL JONNY. NO POTENTIAL PATHOGENS SEEN. Normal [facility] Comment on above: Performed By: #### B OX #### [facility] [address] [place] [address] Dr. Jeronimo Melgar DRUG SCREEN RAPID (URINE)on 04-19-2022 AMP Negative Normal NEGATIVE [facility] Comment on above: Performed By: #### H IV12 #### [facility] [address] [place] [address] Dr. Jeronimo Melgar BAR Negative Normal NEGATIVE [facility] Comment on above: Performed By: #### H IV12 #### [facility] [address] [place] [address] Dr. Jeronimo Melgar BUP Negative Normal NEGATIVE [facility] Comment on above: Performed By: #### H IV12 #### [facility] [address] [place] [address] Dr. Jeronimo Melgar BZO Negative Normal NEGATIVE [facility] Comment on above: Performed By: #### H IV12 #### [facility] [address] [place] [address] Dr. Jeronimo Melgar KRISTINA Negative Normal NEGATIVE [facility] Comment on above: Performed By: #### H IV12 #### [facility] [address] [place] [address] Dr. Jeronimo Melgar CUT-OFFS SEE BELOW Normal [facility] Comment on above: Result Comment: AMP (Amphetamine): 500ng/mL, BAR (Barbituates): 200 ng/mL, BZO (Benzodiazepines): 150 ng/mL, BUP (Buprenorphine): 10 ng/mL, KRISTINA (Cocaine): 150 ng/mL, mAMP (Methamphetamine): 500 ng/mL, MTD (Methadone): 200 ng/mL, OPI (Opiates): 100 ng/mL, OXY (Oxycodone): 100 ng/mL, PCP (Phencyclidine): 25 ng/mL, PPX (Propoxyphene): 300 ng/mL, THC (Cannabinoids): 50 ng/mL, TCA (Trycyclic Antidepressants): 300 ng/mL Performed By: #### H IV12 #### [facility] [address] [place] [address] Dr. Jeronimo Melgar DRUG CUT HEADER DRUG CLASS TEST SYSTEM CUT-OFF CONCENTRATIONS ARE FOLLOWS: Normal [facility] Comment on above: Performed By: #### H IV12 #### [facility] [address] [place] [address] Dr. Jeronimo Melgra mAMP Negative Normal NEGATIVE [facility] Comment on above: Performed By: #### H IV12 #### [facility] [address] [place] [address] Dr. Jeronimo Melgar MTD Negative Normal NEGATIVE [facility] Comment on above: Performed By: #### H IV12 #### [facility] [address] [address] [address] Jeronimo Melgar OPI Negative Normal NEGATIVE [facility] Comment on above: Performed By: #### H IV12 #### [facility] [address] [address] [address] Jeronimo Melgar OXY Negative Normal NEGATIVE [facility] Comment on above: Performed By: #### H IV12 #### [facility] [address] [address] [address] Jeronimo Melgar PCP Negative Normal NEGATIVE [facility] Comment on above: Performed By: #### H IV12 #### [facility] [address] [address] [address] Jeronimo Melgar PPX Negative Normal NEGATIVE [facility] Comment on above: Performed By: #### H IV12 #### [facility] [address] [address] [address] Jeronimo Melgar TCA Negative Normal NEGATIVE [facility] Comment on above: Performed By: #### H IV12 #### [facility] [address] [address] [address] Jeronimo Melgar THC Negative Normal NEGATIVE [facility] Comment on above: Performed By: #### H IV12 #### [facility] [address] [place] [address] Dr. Jeronimo Melgar GLYCOHEMOGLOBIN A1Con 2022 ADA RECOMMENDATION SEE BELOW Normal [facility] Comment on above: Result Comment: ADA RECOMMENDED LIMIT 4.0 - 6.0 ADA THERAPEUTIC TARGET < 7.0 ACTION SUGGESTED > 7.0 Performed By: #### A 1C #### [facility] [address] [place] [address] Dr. Jeronimo Melgar Glucose [Mass/Vol] 100 mg/dL Normal [facility] Comment on above: Performed By: #### A 1C #### [facility] [address] [place] [address] Dr. Jeronimo Melgar HbA1c (Bld) [Mass fraction] 5.1 % Normal 4.5-6.2 [facility] Comment on above: Performed By: #### A 1C #### [facility] [address] [place] [address] Dr. Jeronimo Melgar TYPE AND SCREENon 04-19-2022 TYPE AND SCREEN Negative Normal [facility] Comment on above: Performed By: #### B OX #### [facility] [address] [place] [address] Dr. Jeronimo Melgar CBC AUTO DIFFon 04-02-2022 BASO # 0.0 103/ul Normal 0.0-0.1 [facility] Comment on above: Performed By: #### C BC #### [facility] [address] [place] [address] Dr. Jeronimo Melgar Basophils/100 WBC (Bld) 0.3 % Normal 0.2-2.0 [facility] Comment on above: Performed By: #### C BC #### [facility] [address] [place] [address] Dr. Jeronimo Melgar EO # 0.0 103/ul Normal 0.0-0.7 [facility] Comment on above: Performed By: #### C BC #### [facility] [address] [place] [address] Dr. Jeronimo Melgar Eosinophils/100 WBC (Bld) 0.2 % Critically low 0.9-7.0 [facility] Comment on above: Performed By: #### C BC #### [facility] [address] [place] [address] Dr. Jeronimo Melgar Erythrocyte distribution width (RBC) [Ratio] 12.9 % Normal 11.0-15.0 [facility] Comment on above: Performed By: #### C BC #### [facility] [address] [place] [address] Dr. Jeronimo Melgar Hematocrit (Bld) [Volume fraction] 37.5 % Normal 36.0-48.0 [facility] Comment on above: Performed By: #### C BC #### [facility] [address] [place] [address] Dr. Jeronimo Melgar Hemoglobin (Bld) [Mass/Vol] 12.4 g/dL Normal 12.0-16.0 [facility] Comment on above: Performed By: #### C BC #### [facility] [address] [place] [address] Dr. Jeronimo Melgar IG # 0.05 10e3/ul Critically high 0.00-0.03 [facility] Comment on above: Performed By: #### C BC #### [facility] [address] [place] [address] Dr. Jeronimo Melgar IG % 0.3 % Normal 0.0-0.5 [facility] Comment on above: Performed By: #### C BC #### [facility] [address] [place] [address] Dr. Jeronimo Melgar LYMPH # 2.0 103/ul Normal 1.2-3.8 [facility] Comment on above: Performed By: #### C BC #### [facility] [address] [place] [address] Dr. Jeronimo Melgar Lymphocytes/100 WBC (Bld) 14.1 % Critically low 20.5-60.0 [facility] Comment on above: Performed By: #### C BC #### [facility] [address] [place] [address] Dr. Jeronimo Melgar MANUAL DIFF REQ NO Normal [facility] Comment on above: Performed By: #### C BC #### [facility] [address] [place] [address] Dr. Jeronimo Melgar MCH (RBC) [Entitic mass] 27.9 pg Normal 26.7-34.0 [facility] Comment on above: Performed By: #### C BC #### [facility] [address] [place] [address] Dr. Jeronimo Melgar MCHC (RBC) [Mass/Vol] 33.1 g/dL Normal 29.9-35.2 [facility] Comment on above: Performed By: #### C BC #### [facility] [address] [place] [address] Dr. Jeronimo Melgar MCV (RBC) [Entitic vol] 84.3 fL Normal 81.0-99.0 [facility] Comment on above: Performed By: #### C BC #### [facility] [address] [place] [address] Dr. Jeronimo Melgar MONO # 0.6 103/ul Normal 0.3-0.8 [facility] Comment on above: Performed By: #### C BC #### [facility] [address] [place] [address] Dr. Jeronimo Melgar Monocytes/100 WBC (Bld) 4.0 % Normal 1.7-12.0 [facility] Comment on above: Performed By: #### C BC #### [facility] [address] [place] [address] Dr. Jeronimo Melgar NEUT # 11.7 103/ul Critically high 1.4-6.5 [facility] Comment on above: Performed By: #### C BC #### [facility] [address] [place] [address] Dr. Jeronimo Melgar Neutrophils/100 WBC (Bld) 81.1 % Critically high 43.0-75.0 [facility] Comment on above: Performed By: #### C BC #### [facility] [address] [place] [address] Dr. Jeronimo Melgar Platelet mean volume (Bld) [Entitic vol] 10.2 fL Normal 9.5-13.5 [facility] Comment on above: Performed By: #### C BC #### [facility] [address] [place] [address] Dr. Jeronimo Melgar PLT 420 103/ul Normal 150-450 [facility] Comment on above: Performed By: #### C BC #### [facility] [address] [place] [address] Dr. Jeronimo Melgar RBC 4.45 106/ul Normal 4.20-5.40 [facility] Comment on above: Performed By: #### C BC #### [facility] [address] [place] [address] Dr. Jeronimo Melgar WBC 14.4 103/ul Critically high 4.0-11.0 [facility] Comment on above: Performed By: #### C BC #### [facility] [address] [place] [address] Dr. Jeronimo Melgar ER URINE PROFILEon 2 Bilirubin Ql (U) Negative Normal NEGATIVE [facility] Comment on above: Performed By: #### B OX #### [facility] [address] [place] [address] Dr. Jeronimo Melgar Clarity (U) CLEAR Normal CLEAR [facility] Comment on above: Performed By: #### B OX #### [facility] [address] [place] [address] Dr. Jeronimo Melgar Color (U) YELLOW Normal YELLOW [facility] Comment on above: Performed By: #### B OX #### [facility] [address] [place] [address] Dr. Jeronimo FLORES A micrscopic examination will be performed if indicated. Normal [facility] Comment on above: Performed By: #### B OX #### [facility] [address] [place] [address] Dr. Jeronimo Melgar Glucose Ql (U) Negative Normal NEGATIVE [facility] Comment on above: Performed By: #### B OX #### [facility] [address] [place] [address] Dr. Jeronimo Melgar Hemoglobin Ql (U) Negative Normal NEGATIVE [facility] Comment on above: Performed By: #### B OX #### [facility] [address] [place] [address] Dr. Jeronimo Melgar Ketones Ql (U) >=80 Abnormal NEGATIVE [facility] Comment on above: Performed By: #### B OX #### [facility] [address] [place] [address] Dr. Jeronimo Melgar LEUKOCYTES Negative Normal NEGATIVE [facility] Comment on above: Performed By: #### B OX #### [facility] [address] [place] [address] Dr. Jeronimo Melgar Nitrite Ql (U) Negative Normal NEGATIVE [facility] Comment on above: Performed By: #### B OX #### [facility] [address] [place] [address] Dr. Jeronimo Melgar pH (U) 7.0 [pH] Normal 5-9 [facility] Comment on above: Performed By: #### B OX #### [facility] [address] [place] [address] Dr. Jeronimo Melgar SPEC GRAVITY 1.020 Normal 1.005-<=1.025 [facility] Comment on above: Performed By: #### B OX #### [facility] [address] [place] [address] Dr. Jeronimo Melgar UA PROTEIN TRACE Normal NEGATIVE/ TRACE [facility] Comment on above: Performed By: #### B OX #### [facility] [address] [address] [address] Jeronimo Melgar UR MICRO IND NOT INDICATED Normal [facility] Comment on above: Performed By: #### B OX #### [facility] [address] [place] [address] Dr. Jeronimo Melgar Urobilinogen Qn (U) 1.0 {Pepito'U}/dL Normal 0.2 - 1. 0 [facility] Comment on above: Performed By: #### B OX #### [facility] [address] [place] [address] Dr. Jeronimo Melgar PROF CHEM 8 (BAS METB)on Anion gap [Moles/Vol] 12.7 mmol/L Normal [facility] Comment on above: Performed By: #### B MP #### [facility] [address] [place] [address] Dr. Jeronimo Melgar Calcium [Mass/Vol] 9.1 mg/dL Normal 8.5-10.1 [facility] Comment on above: Performed By: #### B MP #### [facility] [address] [place] [address] Dr. Jeronimo Melgar Chloride [Moles/Vol] 103 mmol/L Normal 98-107 [facility] Comment on above: Performed By: #### B MP #### [facility] [address] [place] [address] Dr. Jeronimo Melgar CO2 [Moles/Vol] 23.9 mmol/L Normal 21.0-32.0 [facility] Comment on above: Performed By: #### B MP #### [facility] [address] [address] [address] Jeronimo Melgar Creatinine [Mass/Vol] 0.78 mg/dL Normal 0.55-1.02 [facility] Comment on above: Performed By: #### B MP #### [facility] [address] [address] [address] Jeronimo Melgar EGFR-AF CONGOLESE >60 Normal >=60 [facility] Comment on above: Performed By: #### B MP #### [facility] [address] [place] [address] Dr. Jeronimo Melgar EGFR-NON AF CONGOLESE >60 Normal >=60 [facility] Comment on above: Performed By: #### B MP #### [facility] [address] [place] [address] Dr. Jeronimo Melgar Glucose [Mass/Vol] 155 mg/dL Critically high 74-106 [facility] Comment on above: Performed By: #### B MP #### [facility] [address] [place] [address] Dr. Jeronimo Melgar Potassium [Moles/Vol] 3.6 mmol/L Normal 3.5-5.1 [facility] Comment on above: Performed By: #### B MP #### [facility] [address] [place] [address] Dr. Jeronimo Melgar Sodium [Moles/Vol] 136 mmol/L Normal 136-145 [facility] Comment on above: Performed By: #### B MP #### [facility] [address] [place] [address] Dr. Jeronimo Melgar Urea nitrogen [Mass/Vol] 7.0 mg/dL Normal 7.0-18.0 [facility] Comment on above: Performed By: #### B MP #### [facility] [address] [place] [address] Dr. Jeronimo Melgar Urea nitrogen/Creatinine [Mass ratio] 9.0 mg/mg Normal [facility] Comment on above: Performed By: #### B MP #### [facility] [address] [place] [address] Dr. Jeronimo Melgar US PREG TVon 03-28-2022 [...] by: ANGELA SCOTT Date: 2022-03-28 16:32 Normal [facility] US PELVIS AND TRANSVAGon US PELVIS AND [...] CHRISTIAN KATE Date: 2021-10-17 16:35 Normal [facility] CHLAMYDIA/GONOCOCCUS MILY (SW AB/URINE/PAPon 10-14-2021 Chlamydia trachomatis, MILY Positive Abnormal Negative [facility] Comment on above: Result Comment: . Performed By: #### C T/NGNA #### [facility] [address] [address] [address] Jeronimo Melgar Neisseria gonorrhoeae, MILY Negative Normal Negative [facility] Comment on above: Performed By: #### C T/NGNA #### [facility] [address] [address] [address] Jeronimo Melgar VAGINITIS/VAGINOSIS DNA PROB Obed 10-13-2021 Lesa species Negative Normal Negative [facility] Comment on above: Performed By: #### V AGINT #### [facility] [address] [address] [address] Jeronimo Melgar Gardnerella vaginalis Negative Normal Negative [facility] Comment on above: Performed By: #### V AGINT #### [facility] [address] [address] [address] Jeronimo Melgar Trichomonas vaginalis Negative Normal Negative [facility] Comment on above: Performed By: #### V AGINT #### [facility] [address] [address] [address] Jeronimo Melgar XR foot LT min 3V*on 022 XR foot LT min 3V* [facility] [place] [address] [place] [address] XRay Report Signed Patient: Lia Desai MR#: [id number] : 2000 Acct:[id number] Age/Sex: 20 / F ADM Date: 07/18/21 Loc: ER Room: Type: [facility] ER Attending Dr: Ordering Provider: Oneil Ricci APRN Date of Service: 07/18/21 XR/XR foot LT min 3V*: Extremity Injury, Lower ([id number]) XR/XR ankle LT min 3V*: Extremity Injury, [...] Brewer Jr., M.D.07/18/2021 6:15 PM Dictation Location: [place] [address] Transcribed By: [id number] [id number] Dictated By: Bijan Brewer Jr, MD 07/18/211812 Signed By: 07/18/211814 [facility] XR knee RT 4V*on 05-15-2021 XR knee RT 4V* [facility] [place] [address] [place], [place] [id number] XRay Report Signed Patient: Lia Desai MR#: [id number] : 2000 Acct:[id number] Age/Sex: 20 / F ADM Date: 05/15/21 Loc: ER Room: Type: [facility] ER Attending Dr: Ordering Provider: Yovani Valle [...] Ana Juan M.D.05/15/2021 8:11 PM Dictation Location: [place] [address] Transcribed By: [facility] 05/15/212010 Dictated By: Ana Juan II, MD 05/15/212008 Signed By: 05/15/212010 [facility] Vital Signs Date Time Vital Sign Value Performing Clinician Faci lity 07-18-2021 16:56-0400 Body height 167.64 cm [facility] 07-18-2021 16:56-0400 Body mass index (BMI) [Percentile] Per age and sex 98.9 % [facility] 07-18-2021 16:56-0400 Body mass index (BMI) [Ratio] 44.3 kg/m2 [facility] 07-18-2021 16:56-0400 Body temperature 98.3 [degF] [facility] 07-18-2021 16:56-0400 Body weight 124.6 kg [facility] 07-18-2021 16:56-0400 Diastolic blood pressure 108 mm[Hg] [facility] 07-18-2021 16:56-0400 Heart rate 80 /min [facility] 07-18-2021 16:56-0400 Respiratory rate 18 /min [facility] 07-18-2021 16:56-0400 Systolic blood pressure 162 mm[Hg] [facility] 05-15-2021 19:47-0500 Body height 167.64 cm [facility] 05-15-2021 19:47-0500 Body mass index (BMI) [Percentile] Per age and sex 98.9 % [facility] 05-15-2021 19:47-0500 Body mass index (BMI) [Ratio] 43.7 kg/m2 [facility] 05-15-2021 19:47-0500 Body temperature 98.8 [degF] [facility] 05-15-2021 19:47-0500 Body weight 122.95 kg [facility] 05-15-2021 19:47-0500 Diastolic blood pressure 65 mm[Hg] [facility] 05-15-2021 19:47-0500 Heart rate 75 /min [facility] 05-15-2021 19:47-0500 Respiratory rate 16 /min [facility] 05-15-2021 19:47-0500 SaO2% (BldA) [Mass fraction] 100 % [facility] 05-15-2021 19:47-0500 Systolic blood pressure 144 mm[Hg] [facility] Encounters Encounter Date Encounter Type Care Provider Facility Start: 05-26-2023 End: 05-26-2023 Emergency department patient visit [facility] Facility:[facility] Start: 05-17-2023 Clinisync Result Encounter Robert Marrero DO Work Phone: [facility] Unsolicited Start: 05-17-2023 Clinisync Result Encounter Robert Janes DO Work Phone: [facility] Unsolicited Start: 05-15-2023 End: 05-15-2023 Emergency department patient visit Mamie Moore Facility:[facility] Start: 05-14-2023 Chart abstracting Robert Janes DO Work Phone: [facility] Start: 05-07-2023 Documentation procedure Leah Hernandez RN [facility] Certified Nurse [facility]let [facility] [place] Start: 05-02-2023 End: 05-02-2023 ambulatory Not Available Start: 04-19-2023 Telephone encounter Leah Hernandez RN [facility] Certified Nurse [facility] [place] Start: 04-17-2023 Telephone encounter Leah Hernandez RN [facility] Certified Nurse Eyelet Machine Operator [place] Start: 04-15-2023 End: 04-15-2023 Emergency department patient visit Yassine Maldonado Facility:[facility] Start: 04-12-2023 End: 04-12-2023 ambulatory Oneil MILLS Facility:[facility] Start: 04-05-2023 Orders Only Leah Hernandez RN [facility] Certified Nurse Eyelet Machine Operator [place] Comment on above: Nausea and vomiting during (Primary Dx) Start: 03-01-2023 End: 03-01-2023 Emergency department patient visit Tom Clemons Sarah Facility:[facility] Start: 02-26-2023 End: 02-26-2023 ambulatory Errol Martin PAC Facility:[facility] Start: 02-14-2023 End: 02-14-2023 ambulatory DORA MILLS Facility:[facility] Start: 11-15-2022 End: 11-15-2022 Emergency department patient visit None Provider Facility:[facility] Start: 08-25-2022 End: 08-26-2022 ambulatory Alaina Matta CNM Facility:[facility] Start: 08-11-2022 End: 08-11-2022 Emergency department patient visit Adamaris Jaeger PA-C Facility:[facility] Start: 08-08-2022 End: 08-09-[address] BALDOMERO ELLER . Facility: Start: 06-12-2022 End: 06-12-2022 ambulatory None Provider Facility:[facility] Start: 06-02-2022 End: 06-03-[address] BALDOMERO ELLER . Facility:[facility] Start: 05-18-2022 Encounter for other preprocedural examination DR BALDOMERO ELLER . [facility] Start: 05-17-2022 End: 05-17-[address] BALDOMERO [...] DR ANA LEDESMA Facility:[facility] Start: 03-29-2022 ambulatory [facility] Facility:[facility] Start: 03-28-2022 End: 03-29-[address] BALDOMERO ELLER . Facility:[facility] Start: 10-17-2021 End: 10-18-[address] BALDOMERO ELLER . Facility:[facility] Start: 10-12-2021 End: 10-12-[address] BALDOMERO ELLER . Facility:[facility] Start: 07-18-2021 End: 07-18-2021 Emergency department patient visit [facility] Start: 05-15-2021 End: 05-15-2021 Emergency department patient visit [facility] Procedures Date Procedure Procedure Detail Performing Clinician Start: 05-17-2023 ALL CBC WITH AUTO DIFF Robert Marrero DO Work Phone: Start: 05-15-2021 X-ray of right knee Plan of Treatment Date Care Activity Detail Author Start: 05-15-2028 DTaP,Tdap and Td Vaccines (2 - Td or Tdap) DTaP,Tdap and Td Vaccines (2 - Td or Tdap) [facility] Start: 03-05-2024 Adult BMI Screening Adult BMI Screen ing [facility] Start: 03-05-2024 Tobacco Screening Tobacco Screening [facility] Start: 09-26-2023 Screening for Chlamy driss trachomatis Chlamydia Screening [facility] Start: 06-03-2023 End: 06-03-2023 Patient encounter procedure 06/03/2023 2:10 PM EST Routine [facility] [address] [address] Robert Marrero, DO [address] [place] [address] [facility] Start: 04-17-2023 End: 04-17-2023 ambulatory 04/17/2023 8:30 AM EST Initial [facility] [place] [address] [facility] [address] [place] [address] [facility] Certified Nurse Eyelet Machine Operator [facility] [place] Start: 12-07-2022 Influenza vaccination Influenza Vacc ine [facility] Start: 2022 Screening for malign ant neoplasm of cervix Pap Smear [facility] Start: 07-18-2021 X-ray of left ankle XR ankle LT min 3V* [facility] Start: 07-18-2021 X-ray of left foot XR foot LT min 3V * [facility] Start: 10-08-2019 Adult BMI Follow Up Plan Adult BMI Follow Up Plan [facility] Start: 2013 Depression Screening Depression Scre ening [facility] Patient Education [facility] Work Phone: Patient referral [facility] Work Phone: Payers Date Payer Category Payer Medicaid [id number] 2001 Unknown [id number] 2.16.84 0.1.747889.3.579.2.593 2001 Unknown [id number] 2.16.84 0.1.357703.3.579.2.593 2001 Unknown [id number] 2.16.84 0.1.096832.3.579.2.593 2001 Unknown [id number] 2.16.84 0.1.368173.3.579.2.593 2001 Unknown [id number] 2.16.84 0.1.239200.3.579.2.593 2001 Unknown [id number] 2.16.84 0.1.483939.3.579.2.593 2001 Unknown [id number] 2.16.84 0.1.908579.3.579.2.593 2001 Unknown [id number] 2.16.84 0.1.462902.3.579.2.593 2001 Unknown [id number] 2.16.84 0.1.237808.3.579.2.593 2001 Unknown [id number] 2.16.84 0.1.128666.3.579.2.593 2001 Unknown [id number] 2.16.84 0.1.859472.3.579.2.593 2001 Unknown [id number] 2.16.84 0.1.853211.3.579.2.1259 2001 Unknown [id number] 2.16.8 40.1.983568.3.579.2.718 2001 Unknown [id number] 2.16.8 40.1.867039.3.579.2.718 2001 Unknown [id number] 2.16.8 40.1.668305.3.579.2.718 2001 Unknown [id number] 2.16.8 40.1.134240.3.579.2.718 2001 Unknown [id number] 2.16.8 40.1.504992.3.579.2.718 2001 Unknown [id number] 2.16.8 40.1.968340.3.579.2.718 2001 Unknown [id number] 2.16.8 40.1.689424.3.579.2.8 2001 Unknown [id number] 2.16.8 40.1.708300.3.579.2.718 2001 Unknown [id number] 2.16.8 40.1.582267.3.579.2.718 2001 Unknown [id number] 2.16.8 40.1.407716.3.579.2.718 2001 Unknown [id number] 2.16.8 40.1.450113.3.579.2.718 1959 Unknown [id number] Self-pay Self Pay [id number] Social History Date Type Detail Facility Start: 07-18-2021 End: 05-14-2023 Tobacco smoking status NHIS Never smoked tobacco (finding) [facility] Start: 2000 Sex Assigned At Female [facility] History of tobacco use Passive smoker [facility] Start: 08-01-2022 Tobacco use and exposure Smokeless tobacco non-user [facility] Start: 03-05-2023 Alcohol intake Ex-drinker (finding) [facility] Start: 03-05-2023 End: 05-14-2023 History of Social function [facility] Start: 03-05-2023 End: 05-14-2023 Tobacco use panel [facility] Housing Instability Unknown [facility] Start: 08-14-2022 Alcohol Comment social [facility] Start: 2000 Sex Assigned At Not on file [facility] Start: 05-14-2023 Alcohol intake Lifetime non-drinker (finding) [facility] Start: 03-20-2023 [facility] Start: 05-01-2023 Gender identity Identifies as female gender (finding) [facility] Start: 05-01-2023 Sexual orientation Heterosexual (finding) [facility] Clinical Notes 06-12-2022 to 05-26-2023 Leah Hernandez [...] Keep all follow-up visits. Medicines ? Take jpdr-abh-gjnczzf and prescription medicines only as told by [...] be an em (more content not included)... [facility] 05-15-2023 Note Education Materials Obstetrics and [...] uri tea. ? Taking prescription medicine or knsa-dkr-ixkvngg medicine as told by your health care [...] or sour. These include lemonade, uri prabhakar, lemon?fort bidwell soda, ice water, and sparkling water. Things [...] food. The s (more content not included)... [facility] 05-07-2023 History of Presen t illness Narrative Letter sent to patient via [facility] and also to her My Chart regarding her missed OB intake appointment and also her MICHAEL for her Chlamydia. documented in this encounter [facility] 04-19-2023 Miscellaneous Notes Called patient to reschedule her IOB intake visit. No answer. Left message to call office to reschedule her appointment. documented in this encounter [facility] 04-19-2023 Telephone encounter Note Called patient to reschedule her IOB intake visit. No answer. Left message to call office to reschedule her appointment. [facility] 04-17-2023 Miscellaneous Notes Patient called for her OB intake per phone. No answer. Left message to call office. documented in this encounter [facility] 04-17-2023 Telephone encounter Note Patient called for her OB intake per phone. No answer. Left message to call office. [facility] 04-15-2023 Note Education Materials Gastroenterology Nausea and [...] ? Low-calorie sports drinks. ? Eat bland, xsfh-ty-onnxgr foods in small amounts as you are able, such as: ? Bananas. ? Applesauce. ? Rice. ? Low-fat (lean) meats. ? [place]. ? Crackers. ? Avoid drinking fluids that have a lot of sugar or caffeine in them. This includes energy drinks, sports drinks, and soda. ? Avoid alcohol. ? Avoid spicy or fatty foods. General instructions ? Take igvr-jnu-vnlywrk and prescription medicines only as told by your doctor. ? Drink enough fluid to keep your pee (urine) pale yellow. ? Wash your hands often with soap and water for at least 20 seconds. If you cannot use soap and water, use hand door operator. ? Make sure that everyone in your [...] doctor about eating and drinking. ? Take venv-tsa-rlnkkjs and prescription medicines only as told by your doctor. ? Contact your doctor if your symptoms get worse or you have new symptoms. ? Keep all follow-up visits. This information is not intended to replace advice given to you by your health care provider. Make sure you discuss any questions you have with your health care provider. Document Revised: 09/29/2021 Document Reviewed: 09/29/2021 Identified Patient Education ? 2022 [employer] [facility] 04-12-2023 Note Patient Education Ma terials [...] these instructions at home: Medicines ? Take jjbf-cvb-tnhhusv and prescription medicines only as told by your health care provider. Do not use any prescription, alnv-zjh-yhupftp, or herbal medicines for morning sickness without [...] provider. Document Revised: 11/07/2020 Document Reviewed: 10/17/2020 Identified Patient Education ? 2022 [employer] [facility] 03-01-2023 Note Education Materials Pulmonary Medicine [...] Follow these instructions at home: ? Take ohsr-let-npkbqxs and prescription medicines only as told by [...] and water are not available, use hand door operator. ? Avoid contact with people who have [...] is easier to cough up. ? Take pfpq-xza-tjmwnkq an (more content not included)... [facility] 02-26-2023 Note Patient Education Ma terials [...] to help relieve symptoms, such as: ? Demo-aso-cuczwym cold medicines. ? Cough suppressants. Coughing is [...] other clear broths. General instructions ? Take odgl-nnm-spuztjk and prescription medicines only as told by [...] and water are not available, use hand door operator. ? Avoid touching your mouth, face, eyes, [...] These symptoms may (more content not included)... [facility] 02-14-2023 Note Patient Education Ma terials [...] elastic wrap to support your hand. ? Rzzy-fiy-llclqxd medicines to control pain. Follow these instructions [...] or lying down. General instructions ? Take rhvz-puc-wuzpkhq and prescription medicines only as told by [...] provider. Document Revised: 07/13/2021 Document Reviewed: 07/13/2021 Identified Patient Education ? 2022 [employer] How to Use Cold Therapy Cold [...] on your pr (more content not included)... [facility] 11-15-2022 Note Education Materials Orthopedics Sciatica [...] by your health care provider. Stretching and gmzhn-qp-kwdwqx exercises These exercises warm up your muscles [...] standing, keep y (more content not included)... [facility] 08-11-2022 Note Education Materials Obstetrics and [...] these instructions at home: Medicines ? Take esfd-ngh-ndkwesx and prescription medicines only as told by [...] Where to find more information ? [employer]: acog.org ? U.[place]. Department of Health and Human Services Office of Women's Health: hrsa.gov/ayyqaw-dzzkfi-unxwlh Contact a doctor if: ? You have [...] ? Text the Crisis Text Line at 409071. Summary ? A miscarriage is the loss [...] provider. Document Revised: 09/23/2020 Document Reviewed: 09/23/2020 Identified Patient Education ? 2021 [employer] [facility] 06-12-2022 Note Patient Education Ma terials [...] these instructions at home: Medicines ? Take gpxc-wml-xijcgjs and prescription medicines only as told by [...] things can cause a cough. ? Take ngnz-prj-xuaxazv and prescription medicines only as told by [...] provider. Document Revised: 05/13/2020 Document Reviewed: 04/13/2019 Identified Patient Education ? 2021 [employer] Infectious Disease Pharyngitis Pharyngitis is a sore [...] these instructions at home: Medicines ? Take eyjt-pri-eutgkqx and prescription medicines only as told by your doctor. ? If you were prescribed an antibiotic medicine, take it as told by your doctor. Do not stop taking the antibiotic even if you start to feel better. ? Use throat loze (more content not included)... [facility] Evaluation note No assessment inform ation available [facility] Work Phone: Evaluation note Diagnosis Nausea and vomiting during - Primary [facility] filedocumented in this encounter [facility] on filedocumented in this encounter [facility] Chief Complaint and Reason for [...] Dates NON STAFF Primary Care Provider Active Quality Assurance Advisor Relationship Specialty Start Date End Date Services, [facility] [address] [place], [place] PCP - General Family Medicine 08/11/18 Quality Assurance Advisor Relationship Specialty Start Date End Date Services, [facility] [address] [place] PCP - General Family Medicine 08/11/18 [employer] Assurance Advisor Relationship Specialty Start Date End Date Services, [facility] [address] [place], [place] PCP - General Family Medicine 08/11/18 Goals (unrecognized section and content) Goals may be documented in a n alternate sectionNot on filedocumented as of this encounterNot on filedocumented as of this encounterNot on filedocumented as of this encounterNot on filedocumented as of this encounter INFORMATION SOURCE (unrecogn ized section and content) DATE CREATED AUTHOR 07/27/2021 [facility] DATE CREATED AUTHOR AUTHOR'S ORGANIZ ATION 08/16/2022 [facility] DATE CREATED AUTHOR AUTHOR'S ORGANIZ ATION 05/04/2023 [facility] DATE CREATED AUTHOR AUTHOR'S ORGANIZ ATION 06/08/2023 [facility] FOR RECORDS PERTAINING TO PATIENTS WHO ARE [...] BE BASED ON THE PRIMARY CLINICAL RECORDS. [employer] provides no warranty or guarantee of the accuracy or completeness of information in this document.
== END 2023-06-10 10:52 | disposition home or self-care (01) ==
LOC: LAB 10:52
PROVIDERS: Visit Provider Obstetrics & Gynecology
DX: R79.89 Other specified abnormal findings of blood chemistry (principal)
CPT/HCPCS: 36415; 84443

== ENCOUNTER 2023-06-15 13:40 | Emergency (ER) | payer OTHER, SELFPAY ==
[2023-06-15 13:43] VITALS: BP 124/90; PULSE 92; RESP 16; TEMP 36.4; O2SAT 100; BMI 23.1
--- OUTSIDE RECORDS SUMMARY | 2023-06-15 13:49 | XMS_ITS | CCD ---
Author Name Unknown Address [address] [place] [address] Organization [facility] Care Team Providers Care Foreign Broadcast Specialist Name Role Phone NON STAFF Primary Care Provider LAURA Kraft Emergency Provider NICOLE Ricci Emergency Provider DAPHNIE ., DR ALEXANDRE Attending Unavailabl e KARASIK ., DR ALEXANDRE Admitting Unavailabl [facility] Unava ilable KARASIK ., DR ALEXANDRE Consulting Unavailabl e LAVINIA, DR CHRISTIAN Doyle Consulting Unavailable KARASIK ., DR ALEXANDRE Consulting Unavailabl e KARASIK ., DR ALEXANDRE Attending Unavailabl e [facility] Unava ilable KARASIK ., DR ALEXANDRE Admitting Unavailabl e ANGELA SCOTT Consulting Unavailable DINA, DR ANA Dennis Attending Unavailable DINA, DR ANA Dennis Admitting Unavailable [facility] Unava ilable DINA, DR ANA Dennis Consulting Unavailable KILO ., MR CUADRA Consulting Unavailable KARASIK ., DR ALEXANDRE Attending Unavailabl e [facility] Unava ilable KARASIK ., DR ALEXANDRE Admitting Unavailabl e KARASIK ., DR ALEXANDRE Attending Unavailabl e [facility] Unava ilable KARASIK ., DR ALEXANDRE Admitting Unavailabl e KARASIK ., DR ALEXANDRE Consulting Unavailabl e JOANNE HUDSON Consulting Unavailable GAVIN ATKINS Consulting Unavailable [facility] Unava ilable KARASIK ., DR ALEXANDRE [...] KARASIK ., DR ALEXANDRE Attending Unavailabl e [facility] Unava ilable KARASIK ., DR ALEXANDRE Admitting Unavailabl e KARASIK ., DR ALEXANDRE Consulting Unavailabl e ZIEBER, ANGELA Dennis Consulting Unavailable KARASIK ., DR ALEXANDRE Attending Unavailabl e KARASIK ., DR ALEXANDRE Admitting Unavailabl e [facility] Unava ilable KARASIK ., DR ALEXANDRE Consulting Unavailabl e KARASIK ., DR ALEXANDRE Consulting Unavailabl e KARASIK ., DR ALEXANDRE Attending Unavailabl e [facility] Unava ilable KARASIK ., DR ALEXANDRE Admitting Unavailabl e WEST, DR CHRISTIAN Doyle Consulting Unavailable REQUEST, DR TYSON LISTED Consulting Unavaila ble [facility] Primary Care Provider Unavailable Primary Care Provider Unavailmichael e Oneil Salomon Admitting Unavaila ble Oneil Salomon Attending Unavaila ble ROBERT MARRERO R Primary Care Unavailable Mario PACErrol Attending Unavailable Errol Ortega Admitting Unavailable DORA JASSO Admitting Unavailable DORA JASSO Attending Unavailable Alaina Matta CNM Attending Unavailable Provider, None Primary Care Unavailable Aliana Matta CNM Admitting Unavailable Adamaris Jaeger PA-C Attending Unavailable Provider, None Primary Care Unavailable Adamaris Jaeger PA-C Admitting Unavailable AustynerYassine Admitting Unavailable AustynerYassine Attending Unavailable JANES, ROBERT R Primary Care Unavailable Mamie Moore Admitting Unavailab Mamie Mencahca Attending Unavailab le ROBERT MARRERO R Primary [...] Facility (1 source) Alfentanil Drug Allergy [facility] Repository (1 source) Azithromycin Drug Allergy [facility] Repository (4 sources) Adhesive agent Propensity to adverse reactions to drug 3 [facility] (6 sources) Azithromycin Drug Allergy 2 [facility] (2 sources) Macrolides And Ketolides Drug Allergy 4 Unknown [facility] (2 sources) Wound Dressing Adhesive Drug Allergy 4 [facility] (1 source) Adhesive bandage; Translations: [Adhesive Bandage] Propensity to adverse reactions (disorder) [facility] Repository (1 source) Azithromycin; Translations: [Zithromax] Drug Allergy [facility] Repository Medications Current Medications Medication Drug Class(es) Dates Sig (Normalized) Sig (Original) [id number] 200 actuat albuterol 0.09 mg/actuat metered dose [...] Coding Summaryon 05-31-2023 Coding Summary HTMLBase 64 OtribfxlSPo7sLa+PGhl YWQ+JE1XWUVhB35luWEw kC3dJ9QGYNpSZdgkQIYA QBpPNpFfdoBiPL4rcWJs ZXJu IC8+XY5wBOQxHfgiyQHm h6U0aVX4F74doi1qNSeo xWK7KHRmQcHqhbfcp3fc oBz6FPfmRhugEnTt KVMtcY26BWG9oU41Ps39 iFXqaGPsq0zlxUf9ZlOb ORQcCDY6qIqhULzxp6Ll MOBfD50fqSYvn6I3 IGNvbGxhcHNlOyBlbXB0 zW8yLHtmkxzwi9dskkow Stq4vk12uPAtw0M4fVL1 F6ZsgeM7LCYzsMYx KjftsKNJbL0zmxysg3em slibOvNvZZWbNJm7KOb4 YZJknNxcOwSmHL49QDM5 VFZuwjSyG3GpIXMs rKzpMwI4p6Y4Xs6DA3AB IpnjE1WYAYUIYGwthXU+ RT76cl08U0FwGrxgBeh8 MZEnFVR0xGG2pG6f MZShNVxnc3P1xXN8K3Th wmQhmv1lh3qeSAStGYhf H49pgHUez4M7BVFipPK0 DUDhrIxcUyTjkV77 Oyc+RNYhcCejx9RoUkok x0dqd8lycRm9RjvsYISf hgHqaTxyGMX1m3RoGs5k EHXkiZF3fWA7iA2t ZkXrDsY5HTbhF967CfPr bFAcCnxmW51rR8JleTP+ ZOJhOie9QCOuxOmaZC1t Z6NlMYNylzluoLWl fKqnAI9zFVEbjxciWXEi sC8fAGXfQ3e1CnOrSaI2 PDjoQ6UxWTJvdgwoVi04 oF9zVfXzOjR4ERhs C8AlwaC0RVCuiNGbYNoe XXO7P48pp7N3WMHnNCTx AMX4xSI0qA6rqPljqead bGVmdDsgdmVydGlj YKxbWTclT814AOTafUcg PkNvZGluZyBEYXRlOiAg MDIvMjMvMjAyNDwvdGQ+ CWQlXUA2yUolZLGm kTXxXCqrMn1cyFwnxOdv PP8yKNMincvdRPHehO5n SKLeoTKwcOruCA0pVVVo uhggq280DtDkVQR3 UFVgbLCnE5SjkB7oXzNk UPSrEFLhI2ZqnAVdHHpm S838LBeuBcE1YSFtgeMh H3FlYEXanJmbHnW6 u0P3Vg1Ix9ZokglgA1Bc uMYoGaRkApuxJDj1J8Fc PjwvdHI+GO25UGUiQZ62 DBm9IZI7nSxgLZoi QOBwS7RvvO5tEfYtWYGa ZGRkOyc+PHRhYmxlIHdp ZHRoPScxMDAlJyBzdHls GT9eBt2wKWFnKMWq vFpseZKcWuTqa1axBVSr DZxdRD3goMutT9LhjNU0 UFArk2y7Rp76P78wN8Tz dXA+TGYniQH2wVB0 wR9tXvTfMiY8PFivV731 OtGszFQnXeuww8tac9fq tGg9JbZ5LEZjzzMqbIbu YST3m0ZaQs77H66e IHdpZHRoPSIxNSUiIHZh aOwlyr3pnE6sJj8+PGNv lKX6rUA6gY4oWoAnQiB2 NGqpW410TrQfcFDd Ajzjq6zyh0nwrGm1ZhKu JAKswbQylVefAFD8s8Tt Pz66W1TfnYmgx5NsBvn7 kz30oYRpy7I5wKM0 Q0NrDQMmzbajdVBtiHpq AU9cCQYswyeiSLUpoT8o BSAhI7u6HdTzDrF2QYvp Z8CyzkX1XGBujYOr UKEvhNULoO1ajxkey8ly ngiaClFqCTQrMKj6JFj0 JIGktGigSuYgEPV6SxP6 CVI2oGTabB6bnXrq ctcgkP0lAxy+ZPM2eCNd gUZRBV4vModnqSQ+PHRk NEQ4wWlyHLfkJELcmG6l BSBuF7g8FkJxWcJ0 MSnbC6AhcrQ5JOVqbTUw TDVjxCJNsZ8qudcqq0yn qlmaArLoNJQuGSt7VVa6 LWFsaWduOiBsZWZ0 NyI4JLY8pYAylC9scQgk ggairG8tHxk+QmlydGgg RBJ9CRy1I3XaZvl0VDUd dDxmVO8caTIwSTcd Lu7qnJjxlQgyVO8iKPPy nkbnn716MsHuk8nxJXLl oHVzBTigIGY8L65tx5K6 CKJbWZWfFLO4jNL8 nR7fsVejyqzvkUPhfOcs tpIehPgvEBzuXTknZ738 MQCkdFokWeLxBBj1P1Kh Qfy9ETXluLovZZ0q yOYjHNyxAd7yfHucaSqz UA7iTHMmxrycq622PyJk j6wgYGPztJOkKGlzXOR1 W22lz4L7SQOzMLGj FOX0nPZ4zG9bfJcfzsrd bGVmdDsgdmVydGljYWwt OSqxL941TSPodQreUjHe vWh0F2NoHnz0EUXr rSfnPP7wcADnELdqKu7h uJfjjPpoBT9kJPCbtcuw x676LnAqd9laBWBxwKXe PHhzLYE0C77lg6E2 YSClQWDmFDU8sQY4cN2z bGlnbjogbGVmdDsgdmVy hEagLEcbDMlfH648KPDt cDsnPlBhdGllbnQg EQewLGa7A5LlNrwotFN+ SS70UOWyUT36gMCboNDw s0tzlEq4QnJeEFIiYOJ9 oFzjDDkyx1OuSBEr Z24diTPrn8C4JDAefGkj tNKuMjEshUJ6mL7gUTqn hbcks5pooxqvQmysf4tg be26wZ26G02aPIkd ZHRoPSIzMCUiIHZhbGln xt1twB7oKd7+PGNvbCB3 iZW5bB3kCIWhYyC9MCsw K235XoIubQNdNyii m1mlu9ogsXf9WyV3GGJb kgXhkGewUVB5j6IhTv76 H97iEJpxDZMeWOInUHDe RIYpkSmvye8btJ3j Ii8+PWIfeNZ2tBD2cP5z EkWuNuD3XTycT299BmHe dVUcUttkU44vA2LelBE+ OEByYhk8PZPdqUyn IC9siXBzNYvgNy4nHZC5 GsMgWzIbIMvqB9FgUDBc uqemnncdhEY5HGSiVAHs wD62Ag3unMxfXGFa pGWWcY2cnlyqx1klzevl BoTzQHUdZYz6CMc8AQWh qJipBxTxVFO5AzS2EBV3 kWBkvS6fwUpbrpro nE4gR5OpUNTwayrkYg92 wN4jLfHiQrX7NRxlNxr+ W8rBEiIGAKvlM1oSZGCJ HIzADN7CLUeikOD+ NLHsLTU5pKpiLNwqGQZq vV9qVZQbX5h9ZvOpKyU3 FSykD4JgQXTxxxfcZf06 fB0aSmOzKpU4VNiv T8OhihL0XRDlbHNqQInj RFV8D74zf6U7CDDiMJLs VAK5bGY3pV2nmWnxiuzo bGVmdDsgdmVydGlj PFxxSFxhK412FXIgoRqk OwE6GkBdXhObLAG8I0Gu Nuy1XMVfpThgLO6ugPRu TTbcMs6kbLpeaQzd LC0lAJCopfkzKRCumJ4e ZNAitUKgbCedYM9hOHUn sufds659AzPpKEK5XRQl yHMbD9DrfY8dDfLe PSRtNTKbR6HigVCwYExw T522PMygQyL9KEKuxfCm R7JxRRNjrXygJkU4t8A1 Qx3uGLORBVDeifai dGQ+NVIxDQI9cHvvGNxz FVOmvC3oZJNdG7g3DcCz SkE2IVjhZ2WtDNCftvzm Ao69qH0zGsFoHcU3 QKhwA9WowuZ7JRUnvZBa PYxnXNB0I12xv6H0GAVc PXAsPNO1gOE2zH5ywXfx bjogbGVmdDsgdmVy gUkmUDvdMCgtI218AIUb cDsnPkZFTUFMRTwvdGQ+ RDWeUHT4nCmiGFelTFXe uU1bBWPoF2s8GeRy GrS6NSctO3WbWWZoldrj Il73gI8aYsOxOhN0IOlg M6AxzbL4WPQnqNWcMLxr IQU7Y72mz8O5SFXc BBOjBLD6fOM0oS3goLjo bjogbGVmdDsgdmVydGlj QEfvNXljE775IZBexHbv KbDmCYZkTK2hzIfu dGQ+PO43gd75R3OgTxmo Xaw8YJZwZXB6lZG4mB5d XFRqAKsxk9B4iRI6I7Ji hlQfrb5aq3jdOKEw WNlhL40vbKUmg9I6KPPq uCM9LKWkcOcaFcXhpW25 Oyc+TFPjrCrnp1XtMaia k8xwy9gtlVe8EuQd YRCijlPsjEcuTZI9l7Hd Nh28N55bDHsmJOXeDCCe PLNcXWQofDgjfg9mnG1f Ii8+VVPorNW9sAR2 mF9vXxUiGnT9WHzuL695 GtRjeDOfMzhzo9emo6vx aWk0VfDnHXSsgtOxuPeh BWZ0n7VhSa41N5Fr qAeao4KkBgy7ie06eHOl g7W8mBO6H6MqELYomtlr jGQvpQjuOX6mCNUfebvl EXVffC2lNBIeG0g7 ByPrMfU2CYolG4MfnyB3 DBVsyYTeJDRmdONQhL4x sgbgk5ajlsxiNjDtTNDk UVs4LEs7YNVwjGkv TrFrLUR8JdS3JKW0rCNk iG7jrCizblvqrU3cUgq+ FPd4x3ltgDDuAN9ijBS3 JX55GQ35zSExp8R2 fAF8D2TiYCZhtaljhgua jNA3PGTfUQEsrX79Bc4j lUydVv7zDNAiYSC4OJJi iQXoY0JzoV9yAxQc GJDsCXZhE1IxrKIaAJzq E250YAmxOxU9DHSizbZx A4NdFGBkyWveQeJ2h0W0 Vn1KIV13XR44BR83 hLOes9D9bMS7G0ZxYRAl vxvtspgcwOM4AQRxBRJm mE77Tp3rlWleCm0sUPHw VNU7AGWnyOAbN0Pp kW2lZqKdTKBsMPOuX2Ax oZBvXMpkO045XJedLvO3 BCJfvuWkG0JuIZEttZwd WjF5x8V5Il2TRg20 VC88YS72sSBop8X9yOA0 A3DjVQPjuqfhrarvtDP7 ICKrMHDkpH71Ao8xlOsz Av0eSJTtDDO0IPZs dNXjG3RvdL0xJxNzATGv LPEsR1NohOOcTKpfV908 CSbjTmY7ZFSfhgCfL0Mi SKUwqLvaDnH4t3E5 Yk9VNEbwuts7P5AkEudx dHI+VP48UYRwXS51bFZu qORdm7rqmPn6QdQlVUCk XHN6hKefBGixa4Bh ZXI (more content not included)... Normal [facility] C Throaton 05-28-2023 C Throat Ordered by Radha. Normal throat jonny isolated No pathogens isolated [facility] Comment on above: Performed By: #### 1 [id number] #### [facility] (DEFAULT) [address] [place] [address] .QC SARS-CoV-2 (COVID-19)/Fl u/RSV (GeneXpert)on 05-26-2023 Internal Control Pass [facility] Comment on above: Order Comment: Order ed by Radha.[[email or web address]] Performed By: #### 1 [id number] #### [facility] (DEFAULT) [address] [place] [address] COVID/Flu/RSV (GeneXpert)on 05-26-2023 Flu A (GXpert COVFLURSV) Negative Normal Negative [facility] Comment on above: Performed By: #### 1 [id number] #### [facility] (DEFAULT) [address] [place] [address] Flu B (GXpert COVFLURSV) Negative Normal Negative [facility] Comment on above: Performed By: #### 1 [id number] #### [facility] (DEFAULT) [address] [place] [address] RSV (GXpert COVFLURSV) Negative Normal Negative [facility] Comment on above: Performed By: #### 1 [id number], [id number] #### [facility] (DEFAULT) [address] [place] [address] SARS-CoV-2 (COVID-19) RNA MILY+probe Ql (Unsp spec) Negative Normal Negative [facility] Comment on above: Result Comment: Perf ormed by PCR methodology. Performed By: #### 1 [id number] #### [facility] (DEFAULT) [address] [place] [address] ED Clinical Summaryon 2023 ED Clinical Summary [facility] - Emergency Department [address] [place] [address] ED Clinical Summary PERSON INFORMATION Name: LIA DESAI Age: 22 Years Sex: FEMALE : 2000 MRN: Acct#: Visit Reason: Diarrhea; Fever; Headache; Throat pain - Adult; Body aches; HEADACHE, FEVER, BODY ACHES Arrival: 05/26/2023 17:02:55 Discharge: 05/26/2023 18:57:00 LOS: 000 01:55 Check In: 05/26/2023 17:02:55 Checkout:05/26/2023 18:57:00 Address: [address] [place], [place] [id number] PCP: ROBERT MARRERO PROVIDER INFORMATION Provider Role Assigned Unassigned Yassine Maldonado MD ED Provider 05/26/2023 17:04:17 [place] DRY CELL SEALER Nurse 05/26/2023 17:19:42 VITALS INFORMATION Vital Sign Triage Latest Temperature Tympanic Temperature Temporal Artery Pulse Rate O2 Sat 97 % 97 % Respiratory Rate 16 br/min 16 br/min Blood Pressure /71 mmHg /71 mmHg MEDICAL INFORMATION Medications Given: Allergy Information: Adhesive Bandage; Zithromax PHYSICIAN DOCUMENTATION DISCHARGE INFORMATION: Discharge Disposition: Home Discharge Location: Home PATIENT EDUCATION INFORMATION Instructions: Hypertension, Adult, Efln-vr-Onvg; Nausea and Vomiting, Adult, Jprz-wh-Cwwi Follow-Up: With: Address: When: ROBERT MARRERO [address] [place] [address] Within 3 to 5 days DIAGNOSIS: 1:Nausea vomiting and diarrhea; 2:Elevated blood pressure reading; Diarrhea, unspecified Patient Understands: Yes - Patient/family/careg iver verbalizes understanding of instructions given Comment: Normal [facility] ED Patient Summaryon 024 ED Patient Summary [facility] - Emergency Department [address] [place] [address] PATIENT DISCHARGE INSTRUCTIONS Patient Information Name: LIA DESAI Age: 22 Years Date of : 2000 Reason For Visit: Diarrhea; Fever; Headache; Throat pain - Adult; Body aches; HEADACHE, FEVER, BODY ACHES Arrival Time: 05/26/2023 17:02:55 Primary Care Physician: ROBERT MARRERO Attending Physician: Yassine Maldonado MD Comment: Visit Diagnosis: Diagnoses This Visit Body aches ([id number]) Diarrhea ([id number]) Diarrhea, unspecified (R19.7) Elevated blood pressure reading (R03.0) Fever ([id number]) Headache ([id number]-[id number]- SD1P-40L2UL5M8W31) Nausea vomiting and diarrhea (R11.2) Throat pain - Adult ([id number]- [id number]) The Pharmacy at [facility] is open Saturday through Saturday from [...] alcohol and/or drug addiction problems; contact the [facility] 29/10 Crisis Hotline -Text 4HWEE yn [phone]. If you received any narcotics, sedation, or [...] With: Address: When: ROBERT MARRERO [address] [place] [place] [id number] Within 3 to 5 days Medication Information: The exam and treatment you received today in the [facility] Emergency Department were for an urgent problem and are not intended as complete care. It is important for you to follow up with a doctor, nurse practitioner, or physician?s pediatric medical assistant for ongoing care. If your symptoms [...] so we can reach you if necessary. [facility] Emergency Department has provided you with a complete list of medications post discharge. Please inform your hammer smith/provider of your visit and for further instruction [...] pressure an (more content not included)... Normal [facility] Strep Aon 05-26-2023 Strep procedure control Pass Normal [facility] Comment on above: Performed By: #### 1 [id number], [id number], [id number] #### [facility] (DEFAULT) [address] [place] [address] Streptococcus A Negative Normal Negative [facility] Comment on above: Performed By: #### 1 [id number], [id number] #### [facility] (DEFAULT) [address] [place] [address] Coding Summaryon 05-20-2023 Coding Summary [facility] VmeteuoiGOc0yCg+PGhl YWQ+VM4DSHTcG59poQAm oO8sW0RJMVhFLmrkIEOL EXoKMoXsjePuEY8zrFOg ZXJu IC8+MT6tZVPmIrwqbKYm o3R4mDB5L24wly8qKVma hMW2GADvMkDjzgqns7uq vEe7NBfnEolqRzMb AYNyuA09RHT0cT99Qk58 sVApoUEsv6wtkOy1GpIc UXHpXOO1xPfiXHyrg0Td MYBkI80aeRFjq9Y8 IGNvbGxhcHNlOyBlbXB0 dR3gIQuavyyht6jemffm Hca5dr86jLFod3K5uHQ7 A5IcmzK5PHUezIFr UjsdkECMpP7bptfyb9ta bymjAyCiEMBuOLn8ELu3 FURfcTtyIyZnAC70AZB7 XFOmwlXxJ5GdEDKk cNwaVfK7k9H5Qg3LF4KF WdpcE3EROPOYNRsrwQR+ MU17pw37J8RlAqusIqu2 MKGyPCB1pRG3dX6e BDRtXVpfv0H5mVM1W9Nr ayVwfi2vg2nrLUVwBNsg G87efZXqg0B8YEUxfGY9 WPBgvZthFuSttF77 Oyc+DPJyhPuil2XnWyzn f9tjt5pytPi7CpmqDQOr qeFgnJjnGYL6x2BaOk5f EXXfaWV4bBH9jM8s PzSmRiJ0XJdcP451BzQd vKRxEvfsW91bQ5QfoXF+ JKGcUiy9ERFmgHnvSZ8d Y0JdRXVeqdyikTUn iDspWD9xMDOlouzgXLPv uC0xFGFiB8m7HqHkZwK0 XUkuY5HoMGJjvvfqUv90 fY0xSvUpXqA9LQuz O7UfvoP9XVWzsTZtZXns PRC7T20so6H2VYIuRDZg JSE3pMB7mD7mxTepmwzd bGVmdDsgdmVydGlj HUuoWMksL146FXLjrRur PkNvZGluZyBEYXRlOiAg MDIvMTIvMjAyNDwvdGQ+ GKBlIGD0nPbiCYZv oMHvWFdlUz9roTxmaZaw ZH3sUIHcdorvMUMqcE5m ALOapPZefBgvUJ2fOWQj dcpos083AwSuZAN3 BNSfgXMuI1PibK0sIqMc KBSkAZKaW0TotDCjPOoq V630RDudKnB9RVFkisIv J5LqHOJrrOcwIlP4 v1T2Lv8Sm7LkcvjxW1Kv tQDiBaDqKtzvOBl6I9Xr PjwvdHI+ZC29QGEmZA11 MXy7JXN4rIejKIih XKBtA0QzbV5hNcEaSXCf ZGRkOyc+PHRhYmxlIHdp ZHRoPScxMDAlJyBzdHls OB3uWm8dZZIiSOCb lUfyqPTeKtIoa5rrCKRn WJtjBH1gkCbkT9FetVO3 NKQeh7v7Rb33J07nX2Wo dXA+DIHhyKJ6iTB4 uU1aXiXmLxL7SHokE386 JfDxaYXrJqjdv1dcf8nm cCl9IjY1QITfyeWevFtj TXR9b8ZlQq39C59p IHdpZHRoPSIxNSUiIHZh dLpjqu2tjE2nHl0+PGNv oWK1qDY1aP7cAvEqGxI7 NBdvD349SyTwvXDh Bwciv3ast5fkcLr8HuOm UIPlmiPkpEfyOYK6r0Uw Td54V8MteDnnd9OzLou6 cb29oSXmn9F7vJO1 V2BlWPYiuiekuIXyyZfz DV0xAENtsfamCTUdbL3v CLBkP0y7LeSuEpO6NEiv Y1FvijA8PCFczKEw TKShgHOJrA3vklbgs4bk ivvvZbDxFQRmYRc2IWx6 YLThfVbiPrQxAFK9LxJ6 YLE5rGDhdN3ckDia lfddwU1kRwq+GMH3gNNy uAYHGI8sPfoliTQ+PHRk WQW8yXisDMpkMPQysF5r RPLzU3n7XxRdMpD8 ERraZ1PdxwP7BXJgsEZy UZTufPNVdB8ndnijw7bw wdrjGmDfLWBhKJz9PWh7 LWFsaWduOiBsZWZ0 JjO5GIJ3eXCkmS4rgWfr shdqsD3nGks+QmlydGgg CNT9PAc4H1LiAhb6IVLl iCndCG0rfXGzPVaj Yh2mzUwtoWkyUN5gRKDo veilg607GfHhl2jlNUEv jKLmCLtzLFE7S31ag0G1 GWPbPMJyAZD4rYI2 kK5ylCewqvcnfKLfxCts zjKksAaxEBmxLTbrB303 PEGsmXbvYjPdYWt9O5Qi Pty2JNYygLseVP5f xYLpZYlaSq5njMqniAsa WS6eFDPxepqcq881AcEt u6xiJPDupUAcTQqkBPD4 L02hi8M6XADjMGIx DXW7uLE6iP9sqGpycayk bGVmdDsgdmVydGljYWwt SLzhZ395VCLlzIvyPiYy aLt9U5ZuAzb0LPWb qZseAI0bxPHwCFvpHh1d kYlpsRlsLF8wPTMupfzg p316FaEdy3lwTWGusYZp TBolNRK0H13lx3X0 RRRjQNSrWGI2pCL9cX5l bGlnbjogbGVmdDsgdmVy dMscBMmtWCtfH034EGDt cDsnPlBhdGllbnQg NRroOFu0H2FsMdopiCW+ CK44THQzVG07fKUmhVEk j2qmkZk2PvPeEOFfKXT3 yPdgXCpoz7AgWXDe C87asGSui2R8EKZcyDuo gSEgXkPecDM7pP0eMNqc mpzjn7kahpwrIuhsr4co hr78vC65L14dOHxg ZHRoPSIzMCUiIHZhbGln fm0ukC4wBt7+PGNvbCB3 oMB7gG3wWHZoLpG8MCml N236GqVqlJJiUlqn j7hqj5xooMz2DjM7JNPb ndCddEhyOAW2n9BoLy62 O72rDPvmXGIpRATuKMJg JKWhgMtpnz8cmX7z Ii8+VVLsbZH8wQQ4aC3r WeNqYbQ6ZOaxR490CjTi bUMiQasdF30nO8NrzJO+ IWNzIup1BNLhqTii QY0myAIsUIrnRu6jQYD8 VxUwYpDaMBbwN9TuVGVz txqeorqphOF3PQEhVKOf sT53Db9gqLnsSWNn nVHEcB2bulrhk0tnynxq LdGuDTZlUSf3YCk9MMXc jLazSzRtXTM4EfS3SXZ6 iEVipN0inQjyqkor aZ0yV9UpNWGscwrjDx11 cH3qAeDdLwD1VRicDor+ L2qSOoZDRXiwB4aFCYCP NYbBKR0TDHfqhTV+ UYPxUIL0zOtzEOamEFPv fQ7rDFRiY8m0TfImYsX5 IVibK1TqFZNhriqnRq70 wK1qHrVhDaD8GCct P2RlocP1HSDqrPMfHNay GPF7N10xb3S7LXLrSQGx OFM1aZQ2tU1xuFranuqc bGVmdDsgdmVydGlj GXtmGTrjS375UNHrpFjl IeH0YeCfHpTdJVK6L0Yy Aum2YYMmmJjpWF2whJIh EXyqDe9nsRdyuHhe RA9vYWSkwbsxMDRoeA6u JCEoxCTdaDpxKR3nOSFr fgwoh570EiNhTIZ6AIJt nVXxL3DidY7bVoRz FJWkEWYrV0AadVOqBWne V207LIhpSrT2YJEqphZc I9WlOSBxkGvjMpZ8q2X5 Js2rUYGDXZGfpqdc dGQ+JQVwUOD6uCnkDUqw LOIthQ8jESMuW1o8WqGm SkP3PBwyY1DjJYJtrdrm Ky01yA4cYeJkSrS7 WIugJ3GxtcQ8VYBujWCi FDkuEAA5A89nz9Z3YHHo RSVzTOS1bYH8rS9cmGit bjogbGVmdDsgdmVy tOruMEbvSUglH420MIBp cDsnPkZFTUFMRTwvdGQ+ KGMhJET8nGphDLxrLJIh lM7bDULvV7b8NsFh WbT4NXfaG7TuOCAvmuhn Kl11xW6wKfVySmN5VOdg P6ZxlpB0RAPgmKOfXXdi MKR9X49zn3X8NFFl GMAwKQK4bIA0oT8jxGrd bjogbGVmdDsgdmVydGlj ZHpfAJmpD677VOPtcTqi VcYbBZPyMG8ukBpv dGQ+FM85am22I5ExMrmx Orw9GYQgTFB8zFM1dM2h NNBzJGsei1Q2cLU9R1Bk eiYrip7pp4crUOJb LBrlB52ycVWio2M7HPKh tKC8FZPsnKjnEeKppA09 Oyc+VWDelVajc5IfVqhf r8zzp9jxgZr2VmZm YMBzyyFvkWirRMN4j0Sl Oo04B18fMEsrCEQqJMXd BMBrGWVqiIgytg6ksQ9g Ii8+BKUquBC6yXQ8 dD8dHmSaEpS7BNypB772 WrBbgZLuRchea0ngk9yx jPn1RoEiGXNeriNlwUvh VCX1x1RqRz51P1Dg wGybq1OjLux5co64zNEf o9G8pYV7C3UdMOOfdrfa wKTunFxoWB4aPQTqlbnh JUFdxR8iCVWoJ7x3 ZsLdOtB2FInxL1DhiuG0 XCOekWBiRROdbPMFyR2a brcyy1izxaytGqMnVIXu PLn0VKl1TMTvuGdg OfYhHCT1NpK4BUE7lDKq lM8qnVnhqkacvH9fOzi+ MLg0h8ylzYEgMV1gsEH0 RV08HU17vJMte3W2 hQG1N2NpIHFpherridqc fNX2EEMaKRSxbU75Fx5q xEjcGb2fINBnFEJ3WMWc uVDzN7XczZ5xIxZq KNFgNKGrZ1PnvJJiETxb D277EIxyVeM7ZMHwscOm K7JdSXEtlZhfRwH7n9T4 Nq4JAH70IY99WH71 oERfb4P5oZK4Q4QmLABf hpmwmwwtnSQ5TOJjFWJs vE84Wk3wqJqpQp2tUXUa ASC9PYCjjGAmW7Yr dN9rNfZnABGpNMDgG4Gc hBHuDEeiY340IDfbUoA3 IRTvlcSoC5ZdAPYfbVdt QyH1u5H4Zc5RLc26 ZE42GD69kYUzz4Z8mDR0 K4KzXLDvxfhabumgfQD5 HFGwEREgmP89Lx9ipAki Rh6yHQUsWQW8KAVj gKIaT9CybG7hQyTxNWWd VYGdE9CanEMxHFrjD102 ZQjtWbZ4RPQuqkXxJ2Zd BDNsbQdtTzI9z9L4 So2ACLriztz3R7QwZbjv dHI+AA12NAShSR91uWIl hWShy7wjnNc3RzTnKBOr JSV0wKewJMfsm8Rn ZXI (more content not included)... [facility] C Urineon 05-18-2023 C Urine Urine Culture ordered as a result of parameters set on specific urine dip and urine microsopic results. 15,000 cfu/ml Corynebacterium species (DIPTHEROIDS) Normal skin jonny isolated [facility] Comment on above: Performed By: #### 5 [id number] ####[facility] (DEFAULT)[address] [place] [address] ALL CBC WITH AUTO DIFFon BASOPHILS ABSOLUTE AUTO 0.0 [facility] Basophils/100 WBC (Bld) 0.3 % 0.2 - 2.0 % [facility] Eosinophils/100 WBC (Bld) 0.5 % Low 0.9 - 7.0 % [facility] Erythrocyte distribution width (RBC) [Ratio] 12.2 % 11.0 - 15.0 % [facility] Hematocrit (Bld) [Volume fraction] 38.6 % 36.0 - 48.0 % [facility] Hemoglobin (Bld) [Mass/Vol] 12.3 g/dL 12.0 - 16.0 g/dL [facility] IMMATURE GRANULOCYTES ABS AUTO 0.02 [facility] Immature granulocytes/100 WBC (Bld) 0.2 % 0.0 - 0.5 % [facility] Interpretation and review of laboratory results Abnormal [facility] LYMPHOCYTES ABSOLUTE AUTO 3.1 [facility] Lymphocytes/100 WBC (Bld) 32.8 % 20.5 - 60.0 % [facility] MCH (RBC) [Entitic mass] 28.6 pg 26.7 - 34.0 pg [facility] MCHC (RBC) [Mass/Vol] 31.9 g/dL 29.9 - 35.2 g/dL [facility] MCV (RBC) [Entitic vol] 89.8 fL 81.0 - 99.0 fL [facility] MONOCYTES ABSOLUTE AUTO 0.7 [facility] Monocytes/100 WBC (Bld) 7.7 % 1.7 - 12.0 % [facility] NEUTROPHILS ABSOLUTE AUTO 5.4 [facility] Neutrophils/100 WBC (Bld) 58.5 % 43.0 - 75.0 % [facility] Platelet mean volume (Bld) [Entitic vol] 10.7 fL 9.5 - 13.5 fL [facility] TBH EO # 0.1 [facility] TB PLT 211 [facility] RBC 4.30 [facility] TB WBC 9.3 [facility] .Auto Diff 05-15-2023 Auto [place] % 8 % Normal 04-19 [facility] Comment on above: Performed By: #### 1 [id number], [id number] #### [facility] (DEFAULT) [address] [place] [address] Baso Abs# 0.1 x10 Normal 0.0-0.2 [facility] Comment on above: Performed By: #### 1 [id number] #### [facility] (DEFAULT) [address] [place] [address] Basophils/100 WBC (Bld) 1.0 % Normal 0.2-2.0 [facility] Comment on above: Performed By: #### 1 [id number] #### [facility] (DEFAULT) [address] [place] [address] Eos Abs# 0.0 x10 Normal 0.0-0.4 [facility] Comment on above: Performed By: #### 1 [id number] #### [facility] (DEFAULT) [address] [place] [address] Eosinophils/100 WBC (Bld) 0.2 % Low 0.9-4.0 [facility] Comment on above: Performed By: #### 1 [id number] #### [facility] (DEFAULT) [address] [place] [address] Lymph Abs# 2.6 x10 Normal 1.3-2.9 [facility] Comment on above: Performed By: #### 1 [id number] #### [facility] (DEFAULT) [address] [place] [address] Lymphocytes/100 WBC (Bld) 25 % Normal 14-48 [facility] Comment on above: Performed By: #### 1 [id number] #### [facility] (DEFAULT) [address] [place] [address] [place] Abs# 0.9 x10 High 0.0-0.8 [facility] Comment on above: Performed By: #### 1 [id number], [id number] #### [facility] (DEFAULT) [address] [place] [address] Neut Abs# 6.6 x10 Normal 1.5-9.2 [facility] Comment on above: Performed By: #### 1 [id number], [id number], [id number] #### [facility] (DEFAULT) [address] [place] [address] Neutrophils/100 WBC (Bld) 65 % Normal 44-88 [facility] Comment on above: Performed By: #### 1 [id number], [id number], [id number], [id number] #### [facility] (DEFAULT) [address] [place] [address] BMP Standardon 05-15-2023 eGFR Non AA >60 Invalid Interpretation Code [facility] Comment on above: Performed By: #### 1 [id number], [id number], [id number], [id number] #### [facility] (DEFAULT) [address] [place] [address] eGFR AA >60 Invalid Interpretation Code [facility] Comment on above: Performed By: #### 1 [id number], [id number], 7385859, [id number] #### [facility] (DEFAULT) [address] [place] [address] Anion gap [Moles/Vol] 15.2 mmol/L Normal 5.0-19.0 [facility] Comment on above: Performed By: #### 1 [id number], [id number], [id number], [id number] #### [facility] (DEFAULT) [address] [place] [address] Calcium [Mass/Vol] 9.2 mg/dL Normal 8.9-10.3 [facility] Comment on above: Performed By: #### 1 [id number], [id number], [id number], [id number] #### [facility] (DEFAULT) [address] [place] [address] Chloride [Moles/Vol] 106 mmol/L Normal 101-111 [facility] Comment on above: Performed By: #### 1 [id number], [id number], [id number], [id number] #### [facility] (DEFAULT) [address] [place] [address] 13612 CO2 [Moles/Vol] 17 mmol/L Low 21-32 [facility] Comment on above: Performed By: #### 1 [id number], [id number], 1710285, [id number] #### [facility] (DEFAULT) [address] [place] [address] Creatinine [Mass/Vol] 0.55 mg/dL Low 0.60-1.30 [facility] Comment on above: Performed By: #### 1 [id number], 02944427, 4307951, [id number] #### [facility] (DEFAULT) [address] [place] [address]752 Glucose [Mass/Vol] 75.0 mg/dL Normal 74.0-118.0 [facility] Comment on above: Performed By: #### 1 [id number], [id number], 3379235, [id number] #### [facility] (DEFAULT) [address] [place] [address] 12831 Osmolality 266 mOsm/L Invalid Interpretation Code [facility] Comment on above: Performed By: #### 1 [id number], [id number], 3515931, [id number] #### [facility] (DEFAULT) [address] [place] [address]116 Potassium [Moles/Vol] 4.2 mmol/L Normal 3.6-5.1 [facility] Comment on above: Performed By: #### 1 [id number], 23578097, 8174308, [id number] #### [facility] (DEFAULT) [address] [place] [address] 12153 Sodium [Moles/Vol] 134.0 mmol/L Low 136.0-144.0 [facility] Comment on above: Performed By: #### 1 [id number], 85014410, 4937892, [id number] #### [facility] (DEFAULT) [address] [place] [address] Urea nitrogen [Mass/Vol] 9 mg/dL Normal 8-26 [facility] Comment on above: Performed By: #### 1 [id number], 13261941, 5375929, [id number] #### [facility] (DEFAULT) [address] [place] [address] Urea nitrogen/Creatinine [Mass ratio] 16.3 mg/mg High 4.6-16.2 [facility] Comment on above: Performed By: #### 1 [id number], [id number], 5266867, [id number] #### [facility] (DEFAULT) [address] [place] [address] Breakpoint Chem Normal [facility] Comment on above: Performed By: #### 1 [id number], 05451697, 3601288, [id number] #### [facility] (DEFAULT) [address] [place] [address] CBC w/ Auto Diffon 4 Erythrocyte distribution width (RBC) [Ratio] 12.9 % Normal 11.5-15.0 [facility] Comment on above: Performed By: #### 1 [id number], 64419185, 1442971, [id number] #### [facility] (DEFAULT) [address] [place] [address] Hematocrit (Bld) [Volume fraction] 39.2 % Normal 33.7-40.4 [facility] Comment on above: Performed By: #### 1 [id number], 48517146, 3932091, [id number] #### [facility] (DEFAULT) [address] [place] [address] Hemoglobin (Bld) [Mass/Vol] 13.4 g/dL Normal 11.3-15.9 [facility] Comment on above: Performed By: #### 1 [id number], 22751949, 5443645, [id number] #### [facility] (DEFAULT) [address] [place] [address] Man Diff? RBC Morph Only Invalid Interpretation Code [facility] Comment on above: Performed By: #### 1 [id number], 42690017, 5660739, [id number] #### [facility] (DEFAULT) [address] [place] [address] MCH (RBC) [Entitic mass] 29 pg Normal 24-34 [facility] Comment on above: Performed By: #### 1 [id number], 14023376, 8486580, [id number] #### [facility] (DEFAULT) [address] [place] [address] MCHC (RBC) [Mass/Vol] 34 g/dL Normal 26-37 [facility] Comment on above: Performed By: #### 1 [id number], 54399919, 3978830, [id number] #### [facility] (DEFAULT) [address] [place] [address] MCV (RBC) [Entitic vol] 84 fL Normal 81-100 [facility] Comment on above: Performed By: #### 1 [id number], 63390627, 6933487, [id number] #### [facility] (DEFAULT) [address] [place] [address] Platelet 228 x10 Normal 138-427 [facility] Comment on above: Performed By: #### 1 [id number], 66107212, 0956765, [id number] #### [facility] (DEFAULT) [address] [place] [address] Platelet mean volume (Bld) [Entitic vol] 8.7 fL Normal 6.3-10.2 [facility] Comment on above: Performed By: #### 1 [id number], 27408903, 3890911, [id number] #### [facility] (DEFAULT) [address] [place] [address] RBC 4.66 x10 Normal 3.70-5.30 [facility] Comment on above: Performed By: #### 1 [id number], 35160158, 1519067, [id number] #### [facility] (DEFAULT) [address] [place] [address] 34280 WBC 10.1 x10 Normal 3.5-10.5 [facility] Comment on above: Performed By: #### 1 [id number], 78850573, 9906335, [id number] #### [facility] (DEFAULT) [address] [place] [address]1148 ED Clinical Summaryon 2023 ED Clinical Summary [facility] - Emergency Department [address] [place], [place] [id number] ED Clinical Summary PERSON INFORMATION Name: LIA DESAI Age: 22 Years Sex: FEMALE : 2000 MRN: Acct#: Visit Reason: Vomiting - ; 10 WEEKS , NAUSEA, VOMITING Arrival: 05/15/2023 13:59:38 Discharge: 05/15/2023 19:41:00 LOS: 000 05:42 Check In: 05/15/2023 13:59:38 Checkout:05/15/2023 19:41:00 Address: [address] [place] [address] PCP: ROBERT MARRERO PROVIDER INFORMATION Provider Role Assigned Unassigned Joelle Nava DRY CELL SEALER Nurse 05/15/2023 15:05:55 Mamie Moore MD ED Provider 05/15/2023 15:56:16 Chrissy Diego DRY CELL SEALER Nurse 05/15/2023 19:19:53 VITALS INFORMATION Vital Sign [...] With: Address: When: ROBERT MARRERO [address] [place] [address] Business (1) Within 3 to 5 days With: Address: When: Follow up with specialist Within 3 to 5 days Comments: Your CAN DOFFER DIAGNOSIS: 1:Hyperemesis of Patient Understands: Yes - Patient/family/careg iver verbalizes understanding of instructions given Comment: [facility] ED Note-Nursingon 05-15-2023 ED Note-Nursing [...] A&O X4. PT. has a steady gait. [facility] ED Patient Summaryon 024 ED Patient Summary [facility] - Emergency Department [address] [id number] PATIENT DISCHARGE INSTRUCTIONS Patient Information Name: LIA DESAI Age: 22 Years Date of : 2000 Reason For Visit: Vomiting - ; 10 WEEKS , NAUSEA, VOMITING Arrival Time: 05/15/2023 13:59:38 Primary Care Physician: ROBERT MARRERO Attending Physician: Mamie Moore MD Comment: Visit Diagnosis: Diagnoses This Visit Hyperemesis of (O21.0) Vomiting - ([id number]) The Pharmacy at [facility] is open Saturday through Saturday from [...] alcohol and/or drug addiction problems; contact the [facility] 29/10 Crisis Hotline -Text 9WFVJ gx [phone]. If you received any narcotics, sedation, or [...] legal documents With: Address: When: ROBERT MARRERO [address] [place], [place] [id number] Business (1) Within 3 to 5 days With: Address: When: Follow up with specialist Within 3 to 5 days Comments: Your CAN DOFFER Medication Information: The exam and treatment you received today in the [facility] Emergency Department were for an urgent problem and are not intended as complete care. It is important for you to follow up with a doctor, nurse practitioner, or physician?s pediatric medical assistant for ongoing care. If your symptoms [...] so we can reach you if necessary. [facility] Emergency Department has provided you with a complete list of medications post discharge. Please inform your hammer smith/provider of your visit and for further instruction on these medications. Any specific questions regarding your chronic medications and dosages should be discussed with your primary care physician(s) and/or pharmacist. Medications That Were Updated - Follow Below Instructions [id number], [address], [place] [id number], [phone] Updated: ondansetron (ondansetron 4 mg oral tablet, [...] drinking abad (more content not included)... Normal [facility] Morphologyon 05-15-2023 RBC morphology finding Nom (Bld) Normal [facility] Comment on above: Order Comment: Order added by Discern. Result Comment: some platelet clumping observed Performed By: #### 1 [id number], [id number], 7674507, [id number] #### [facility] (DEFAULT) [address] [place] [address] UA [id number] 05-15-2023 UA Amorph. 1+ [facility] Comment on above: Order Comment: Urina lysis Microscopic order added on by Discern Expert Rules system. Performed By: #### 5 [id number], [id number], [id number] ####[facility] (DEFAULT)[address] [place] [address] UA Bacteria 1+ [facility] Comment on above: Order Comment: Urina lysis Microscopic order added on by Discern Expert Rules system. Performed By: #### 5 [id number], [id number], [id number] ####[facility] (DEFAULT)[address] [place] [address] UA Mucous 1+ [facility] Comment on above: Order Comment: Urina lysis Microscopic order added on by Discern Expert Rules system. Performed By: #### 5 [id number], [id number], [id number] ####[facility] (DEFAULT)[address] [place] [address] UA RBC 3-5 [facility] Comment on above: Order Comment: Urina lysis Microscopic order added on by Discern Expert Rules system. Performed By: #### 5 [id number], [id number], [id number] ####[facility] (DEFAULT)[address] [place] [address] UA Squam Epi Moderate [facility] Comment on above: Order Comment: Urina lysis Microscopic order added on by Discern Expert Rules system. Performed By: #### 5 [id number], [id number], [id number] ####[facility] (DEFAULT)[address] [place] [address] UA WBC 5-10 [facility] Comment on above: Order Comment: Urina lysis Microscopic order added on by Discern Expert Rules system. Performed By: #### 5 [id number], [id number], [id number] ####[facility] (DEFAULT)[address] [place] [address] UA w Culture if Ind Standard on 05-15-2023 Breakpoint UA [facility] Comment on above: Performed By: #### 5 [id number], [id number], [id number] ####[facility] (DEFAULT)[address] [place] [address] Color (U) Yellow Normal [facility] Comment on above: Performed By: #### 5 [id number], [id number], [id number] ####[facility] (DEFAULT)[address] [place] [address] Culture? Indicated Invalid Interpretation Code [facility] Comment on above: Result Comment: Resu lt created by rule GL_MAGR_ADD_UA_CULT Result created by rule GL_MAGR_ADD_UA_CULT Result created by rule GL_MAGR_ADD_UA_CULT1 Result created by rule GL_MAGR_ADD_UA_CULT Performed By: #### 5 [id number], [id number], [id number] ####[facility] (DEFAULT)[address] [place] [address] Glucose (U) [Mass/Vol] Negative Normal [facility] Comment on above: Performed By: #### 5 [id number], [id number], [id number] ####[facility] (DEFAULT)[address] [place] [address] Ketones Ql (U) >=80 Normal [facility] Comment on above: Performed By: #### 5 [id number], [id number], [id number] ####[facility] (DEFAULT)[address] [place] [address] Micro? Indicated Invalid Interpretation Code [facility] Comment on above: Result Comment: Resu lt created by rule GL_MAGR_ADD_UA_MICRO Performed By: #### 5 [id number], [id number], [id number] ####[facility] (DEFAULT)[address] [place] [address] UA Bilirubin MODERATE Abnormal [facility] Comment on above: Performed By: #### 5 [id number], [id number], [id number] ####[facility] (DEFAULT)[address] [place] [address] 23287 UA Blood Negative Normal NEGATIVE [facility] Comment on above: Performed By: #### 5 [id number], [id number], [id number] ####[facility] (DEFAULT)[address] [place] [address]226 UA Clarity SL CLOUDY Abnormal CLEAR [facility] Comment on above: Performed By: #### 5 [id number], [id number], [id number] ####[facility] (DEFAULT)[address] [place] [address] UA Leuk Est Negative Normal NEGATIVE [facility] Comment on above: Performed By: #### 5 [id number], [id number], [id number] ####[facility] (DEFAULT)[address] [place] [address] UA Nitrite Negative Normal NEGATIVE [facility] Comment on above: Performed By: #### 5 [id number], [id number], [id number] ####[facility] (DEFAULT)[address] [place] [address] UA pH 6.5 Normal 5-8 [facility] Comment on above: Performed By: #### 5 [id number], [id number], [id number] ####[facility] (DEFAULT)[address] [place] [address] UA Protein 30 Abnormal NEGATIVE [facility] Comment on above: Performed By: #### 5 [id number], [id number], [id number] ####[facility] (DEFAULT)[address] [place] [address] UA Spec Grav >=1.030 Normal 1.001-1.035 [facility] Comment on above: Performed By: #### 5 [id number], [id number], [id number] ####[facility] (DEFAULT)[address] [place] [address] UA Urobilinogen 1.0 mg/dL Normal 0.2-1.0 [facility] Comment on above: Performed By: #### 5 [id number], [id number], [id number] ####[facility] (DEFAULT)[address] [place] [address] Urine Source Clean Catch Normal [facility] Comment on above: Performed By: #### 5 [id number], [id number], [id number] ####[facility] (DEFAULT)[address] [place] [address] hCG Quantitativeon hCG Quantitative 088174.0 mIU/mL High 0.0-0.6 [facility] Comment on above: Performed By: #### 1 [id number], [id number], 5227784, [id number] #### [facility] ([facility]) [address] [place] [address] Coding Summaryon 05-02-2023 Coding Summary HTMLBase 64 NtzcutviEKa3nDk+PGhl YWQ+SE4OEXNrW22ihZFb bJ9vF1HETXlAUisvPFSI USuGSvLmbyIvSB0qnSDw ZXJu IC8+HQ6eKFKsArfslPKj h1J5nGN3K42pti0fYUde dFH5AFZgIuMlwspsc4zi xXy8FEyyDwymQxFd CPZwnZ40ZEZ2uC20Mq62 cTQpxRZwy4rspZe0IxJp NJTxQOT0nBgjTQvqd5Bn QGAcH78iuWDdi1R6 IGNvbGxhcHNlOyBlbXB0 rR3yOKnibmali8ejriyf Wij0hi19fLWny2P6vGQ3 V3HazvU0CPBrpNEz OddzjCKJtM5uyvgpr9bt xlgyCvXsMTOoORm2WTp4 ZWIpmIpwCzLfQV90BGA9 ECZamtYdH5OeNISf oXplKwH5s4U8Yf4ZD7UE VnioS2FYORCZJTtqkNL+ AR66nz75Q0VcOpyrMco5 XPGgAKN2gDJ5qR2a JBMiOUwyw8N8gXK4W7Mg bkHjmk1yj9wkZMCgGLni D41bfRXqb9G5NJInbAM6 JGDulFgqXoAfyK46 Oyc+IMCdcLcoj1YsCqpl y6umr2oyvBy2NotsNIHs fnLnoEznTXJ6v7RkAg0q JIThzHP1rSU8xK3l IhRvZkT8KTvdD960ZoVj xQEaSehoT99yO5ZjmRV+ WPNgWyo6YMLxlUacGN0v W4TzQFWhwbyxyULy hAszGQ8yMPAgkhseXTQu hA5hLYXlN0b0ElFpJwA4 EJgkG4AgZOKiknuaKx56 gP4vHuTjNbW4QAbq Q9VqtlI6KGAkcQSoUXtw NWU1X27rv3M5ZEAzNNBv YWF8dLA0rY1plFsxzthe bGVmdDsgdmVydGlj MXqkVDiwF047GSQxrOix PkNvZGluZyBEYXRlOiAg MDEvMjUvMjAyNDwvdGQ+ KVJeNJR3iYvdKNTu wAJgZZurVi6cgNsndMfx CV3kKXCaziiuPFDqsT7t OJIdeGGfwVlyMJ0fIZJd yrasc145NvPnMTE5 FLWdySOhI1AzuA8tWgMs DFYuJGJdZ0MrvTMiFQvr L365NYzdLkS0YTXlfhMh E9OsRXFcoDyyPjI2 j9K1Zi1Dw7GqkevgX3Tx qLXcUiUhXsudZKu0L6Lt PjwvdHI+IW45LPTcPQ11 VEk3WNM0bJqzIGwt SMAyP4FevW3jNgCpYQXe ZGRkOyc+PHRhYmxlIHdp ZHRoPScxMDAlJyBzdHls PF7hYk2sZZUfDIXl bIjxoOJmXkMed5xsLCMr JJkzWE6umXcgT3SiyQI7 MCOak5h5Ws44I78gE3Zy dXA+IWJijKI3wVK4 iG5tSkWmMqD5ZHkmX631 DjNpnDJsEmrup4iba2lc bGu2NpM9TRNmctQpoRhv WBX9r2KuQv25W01k IHdpZHRoPSIxNSUiIHZh rFqocl5osD8tZi3+PGNv hOU2yAV0bX0rQgVkYvB0 VLbbG287HfQnxGMv Evnxq7hzk6lgnEu0ThTy HBAlirCbkYmfEUV8i8Gl Vq80S0BygRblx9YxXus8 zr71qKXgu8W9cUJ1 B9DfKJNbgklyqJSkoTnm GZ0qNHQvfvbtJEVchN8t LGAsW8i6ZaJwYgC7ZVkg D5OchoU5YNNmmZWs IFSfiNKKpN9aipuzb1ym uhcnBhVjVSOqRBh4KFd5 FBMgxKlqWhQhNEA5HmO2 ZSA1mDSydK6hmBwe spqyeL9lLlv+SHV6hQTq zMCREU3wZxojvNE+PHRk DUS3zVabNWskXTOduR6b IDDzH8x9KnXmAqN6 OBolL2SrajQ4HHAfkLSi KWXljMAFzL6minzwz6hk buupWdAqIEHpJKi3VGs5 LWFsaWduOiBsZWZ0 KzI4FVQ7dJTptT5rtRav xylvyV0xPoy+QmlydGgg QNP9CCe7I0GkGdj2FZXl lTkxQI2reBXjGKrz Lg5msRakaWxxMP7aAMKd keprs238IvOpq0qdFXTo wTZjKZjdLDN7X39mf7T9 EDLoVXXkYZE4qSN2 uV2xvZzbsyjqxUBizPxm uoYasPlsTXmbVJhoJ427 JSAajSpxTvKpFWs2N6Mf Dji4XEHumQqgAV1p cRBhMAvjLk6bdNwkuBxh WT3iMWBvpbstt442UlJr u8hqYYQocEEuCVdkTDA3 B79xa0S0NPAuDFNz IRC4pAO7iN6gfYdsdijl bGVmdDsgdmVydGljYWwt BSczR674HYVbvIavWwJu uQd9K7FtWgi0BQWt kAqlBY0qvSHiTSwgTp0t yXqqvIszNZ1tXNPxxlop z034HmDpq5opCSStpOWk JVzsWID3R77et7I9 VQOzGJBhJUN6jNR7rM4c bGlnbjogbGVmdDsgdmVy kDrfSFnxOTyuN119ASTc cDsnPlBhdGllbnQg ZNgtPZm8X7EkAsectLL+ KL82GDVjNA06hOCmiTXo l0ptcOb6RiCqLUTqLEY8 rNlaXTgli0GrRGJg L57cxZHnj0A6XTTawIqj dQXuYnCirKE0qR6vTKeq kinzz8etetgbYeyxz8aa ap03yU14Q17jSZco ZHRoPSIzMCUiIHZhbGln kc8ztT0kBe0+PGNvbCB3 mLN4vP1nQUVcSrL3OBje N037YpOakMGfZdlc v1qlb8uzaUo6HwQ6ZTTt iuBjwUidICW9n6OkYp57 N86nRQbkKJTjHYJxWKPl NQNzgIxeia9jgV2m Ii8+MCGbxLI7oBH9oD0i NvMtLfK7CYlkC996IfIj tXNoIyjjU12lC5PtcMO+ PUPbRqr5MMMryWre SX5chYNeSOeaAh2oVTE8 LsVyHaWeHIspU9EmYKVt vzxzxzoncJO6WBDuMNUp iQ98Dz2mdKycGPHj eEHMgD7joovpf2dnncgd QaQiRYPzMFq4MCr0NHPs kDshMsUwCOL5NpG4ZVI8 nWEadF1buWdzmxba jR1rR2AsLSDqrleoAt68 jQ7jPvEwNiF0GAmbPmc+ M0gYXjAMNZjuT2wRAQIZ OUqNOT1AAZgxlKI+ ESKpWDJ4tMlhZVzsHYWb jY4dZAWmM0o1DzGvQmZ1 HSrqD7JpHIGmcxzzCk62 oR0jGgSkCaA7QLuf L2TeerL3KZFfsGYwZEac FKZ7F17tx0P4FGTpVSLw TNZ2qQF6vU7jaQtbvncc bGVmdDsgdmVydGlj WArrYMvoB870ZCHstHts EsX7MpGbYmYoBFG7G5Bi Mpa7VIMowNiyBY4atZSc AUcjQx0zuToddKwx JU2pMZZvxjxkYIZgqM8h WKFvlUYitWvpQR2bYRUo wfngu281BsEsTUT0SGYy sSUaG8KtzM8hXyFd HQWsWETnS9VfeWLvDJrm K848BVclZnK4WKDxrhCi I6GzBCFhgMtcHiJ3d8O0 Sf0xEHEJJHWxvajx dGQ+FUPdYYP4oAwyVSbg BNRpxL6bMOObV6w0TzNs DdI4HOqcM8KfPOMfhngc Gd66mB3yYoSqKoN8 WHmoU4GfjnW8PUHstFHl ADjoKVO9B68vy8Y1RXVk XLOqMJM9xTN2sQ2eoKng bjogbGVmdDsgdmVy jTvrVMztZRvhF439DLBn cDsnPkZFTUFMRTwvdGQ+ BDBlLTP5fBhtISoqYXKu pI7cNXSmJ4x3QaYg IoA5QCyyW7WkUUPwtzwh Qq03mZ0nUfKlLuA8TSwv S9TkhxS8FQTalEDhBXww WKH6U87if3C0RXBa DPSdBAW1zIO2wJ8bfFue bjogbGVmdDsgdmVydGlj GCjpDMjdR989EJSenKnl JhBrBFApJG3jeFqw dGQ+XI93nv38Q0SlHvdq Kkb4HLXeZUU1pIL2kP8k EBXqGUbty4Z5aXQ9C0So jmFdef9ah0lbMPZe BPgaI94tdYWgr7Z2NAJc iLF2IFArtCfuXrRheW77 Oyc+NRKedEqra3LvXyyf c4lsy7lauIy9BwPf WFOpeuNdzMikBGZ5j4Wt Xp62Q93mQOnxKVSfJZWn RKWfESRyyTduxq7qhM9l Ii8+PJAhsWN8lSR8 iW1lXoLhQvS7YHbcZ938 MrTqcBMnFuihs4gos8ck hTo3DiNtBIYclbVncUmp YOJ1a9KbSi84L8Tk sFplq7CoVzs1ko40qXJp z3I3pCG1Y2FuFCLtnjlr tFSydJgiFT1tEOSuuznt QZBopN7bELDhK0d7 WfQzTpV9XEchX6KlqsQ5 ZOVsmIXlRPTarVUJdD8k tvxkd6haivwdDmUiJOXa YLs9SUi9CNQreNne XmYwTFS2YcE2ORZ8tCNa nU4wsMaaaleccM4eJzo+ MSl5i7lnkRSlSJ1sjXZ8 QM62EP62gEDup3N5 nXE4L7AhZCJkmvyajvcj dQN2YJStKTFofN21Lw8c vVifKa7nUHBsQJO1IJNe mEKoY0RelS2eZfYc NTUzJMHbT9KurULsSKfu B200IJqzErT4OPTkeaXy U0XjSWMrkQttAgJ8d7R9 Py4EDZ03YO82UQ97 xRFzz7Y2xTT7Y7RgCXFx vubzhxqiuNA3QOVaBJCl rF84Yv2muCgjTm2oDDJj RAJ5KUQtgQUyH7Lt gS8rJeTpKVIbBRKvM7Jt lNPyYNwwB498RMuwSdO2 GDTsivTlR6ChHIMioXgv RyD7r9W5Ce9RSd05 LP65PJ71hHLai7O1oFC9 F9ZiZMMrykzodhhcxBM5 LBWzDEBllU09Tn2kaSpp Ug4bFGNuGCS5VKCi uCPmL7UpdY7jLkZuYCYo QGWpR6GhhESgAKgwC356 LRktHpZ7SIOkyhHnX4Be GNUdyXvzCjV7t7V3 Vp9DJYpihcv9W0RkNbqt dHI+OF55DMPqEI19jUKc vKZou8kmnXi1EfOzTXYj JNH4yTaqMUqdi9Sx ZXI (more content not included)... [facility] Coding Summaryon 05-01-2023 Coding Summary HTMLBase 64 BndxacgpGZp0lVh+PGhl YWQ+LX1XWIJuQ32yiPWc oU6bF5CKJKvIAmnjYNRB BIoOGiAwmiYiKL9dkLQh ZXJu IC8+LD2uJNVbCbiaeRQm p5D1zAD8E99bmx5sOAgl yYL7DZNzClZduyqaj3fu aWd9IWcuVzveJnYu XVFatS05MHI7hN48Ry44 gZXgwPUtw5dbkLc8AvDm SAHyYMR5nXjjFKoay9Nx SNQnK20odSDls7Q5 IGNvbGxhcHNlOyBlbXB0 tF4wKHmyosdop8eeclvo Wnb8it84aMLrv3Z0vKH3 F5ShutR5TDUvrWAn CuwbqIAQfR6mvoooi0zn skxmEyNrCSOgJVi2VEf6 KHFbkElcRkNtYN08RPX7 LXObajRnW3BnZMUv dSgqNsL1z7R3Dg1AF0VB TxkhH5WPQQARJWofoSW+ AN18rs76D9RfZqtiGzh4 PZGaJFJ3pJN8oT5g FPByZUydc4W2aDU1X3Dn gxTayg9zb3ppYFCcXRou K69nhTCcj9T1QXZhoMQ3 OYVazUdmDlQjwD93 Oyc+OZYwdDpno2KmDosy n8hjr4ochDx6VumeJWTh jhSlaQcvQEV4e7DdYe1c IOScvZO0zGP4kJ7b VcExDaS8HNtiL094SpYv hLMfEtegL22fN8OhqUM+ QWTaTrg3YYZhaMnoLS4w V4OoPWHaouoqhSFi fSszAE4rDIOsebhxATGm uZ2cIKQbK4j1ChQbGhL1 ZTwhX2JwVLZwzckkUy47 bB6tYvIiZjS2GNtj A0YrjhW0IAZeeMTvLJul JZM7T83cd0D0RYIhVDRs UNH9pLL9tT9irNbenlhx bGVmdDsgdmVydGlj ZHziYNtkD679VIVstYcc PkNvZGluZyBEYXRlOiAg MDEvMjQvMjAyNDwvdGQ+ BJEvLYA9pQlePVTd gLOnVThhGi7cfUorvSwb VK8vLMYjspewTUQmcV4d ZBAavSRicXznNV0dLDRs zhyth844WwMjFEC4 JNHoqIWqT2RtgW6cWoJf GHWnQYLpL3QlwLJrEYsw L409VSdyWqC0WITzufRl B3NyYHXubDawMhU5 o2S4Ja6Xy3FozlnrQ3Ef vBSlKnVjAwusNBe6O9Qv PjwvdHI+LW18DYLjRY54 DHr2JVH5bUefGNmk NNVqJ4CnaF2aRxEnIYPb ZGRkOyc+PHRhYmxlIHdp ZHRoPScxMDAlJyBzdHls TJ0fYp5cNRKgHZPa vRhvoYDwTaYae8usHKXt PHwlYT7yyMbaJ9CipBQ7 NAImk2b6Ng97D97nR3Jr dXA+STXweMI7dAM7 nK9dNtCsEjQ4TLpaF878 TzOwfCGgMzjeo8rqo6xh sUc5IoC6BCDnpbBmoHqr KCX1d8RhJp02H41s IHdpZHRoPSIxNSUiIHZh nOdsfd9zrZ2uSv9+PGNv mEB9uYS5mX3pEcIcAwI4 BImiX685DiNluIYg Rlfbr4fxg8tucXt7AyCa NBTpizEtnDsiGEB2w0Mm Yk00C5SdiZhly7EzIcx4 qs43hZUeb3H3mVI9 N3CmLRCuaiaaaJIshBtu JF3zRMWecvqrFQJzuB7c HYOaI2x4CuUbKlU1OEvy Y5PzrbK3UFHywLQl OJGbeQCYaP4wlgknc6te glczHsWaQGMxWZn5CYb6 TJJhrUrgPeNdLMR6DpP4 QPR7fAEulP1gwDzz nwbwoV8gKan+SGR1vSWt fIZGOJ2gPxzwlPN+PHRk BKT8yAhyHZqrKAOqrT3w JYTqQ3u2ReWkXaE3 IPnvV0NntoL5TYLyhJNb LRJowANXaS2myhbaj6ue jtapVmOeTPMfBTq7TSm0 LWFsaWduOiBsZWZ0 JbF5DQU9wTNzrI6rmGau tuqthA9lPnc+QmlydGgg XJB4TLu3E7ClEon2FSPm dKifCL2ejPIjIVen Ng3ugMbsdHjqWP1nIIEk cdiyk138LnLuo1mmZAEi pFLgIOqbEBA4B75gr4S6 SABgEQMyLWS5xHP0 kC7mlGdnrubbfRTfiXyo bkXqzIftNDtyJEjqH258 XSXhsGjwZxJkANr2N4Ff Hjt4ZAJbmDgyEQ8p cDMzIGhiDk7zaDrgyCzc AH9wITIcwguah554XnDe w0biKNOcpCGlCVxoEON4 F32na7M3AKFcEWFi PYS5rHF5sF9vgKzbfgkq bGVmdDsgdmVydGljYWwt QZquJ268KQRbdYovVgDr fHm7Z4XoCnh7JZQb lWdiLV9lsDKaVLzoNr1t sIwwsGnlMS7xGLNamety z447CrLfi6hzSPDiiAFz IKslGUV4K15wl5U2 TFAaCFEeNUZ8vWG6rP0t bGlnbjogbGVmdDsgdmVy fTwnJOtvYEtcA395DLDj cDsnPlBhdGllbnQg RZsuOWu0O4ZoYvdtwWK+ NJ68UMRxLF95sWYzfDJh k7xcjYi9AzRoXIFgTEE8 gXagBUipm6YeMCOi T09neMUrq2H4SQKejFlq wZAhElWlrUQ2bF6tZHvu tmpbn5euwyshFlfop5cl kb26lM41F74tHMbx ZHRoPSIzMCUiIHZhbGln do1aeS1iVq9+PGNvbCB3 pUG7jI9pROLcErS1FZti T338DiYgpXAuPoye l1epw9ccxBz9NuB6MOUh icEezAgwRMW3d5XbNu00 J63bDNquLHOoKTZmTHNa FGMpoNxghb3ffR5c Ii8+HGQenLZ6yUN0hQ1a TfWiOsW8LCgaG513OzLx hQMxXiqsP19uW7KbeYE+ HARlEst7DGRpbJed EB9tgQZdQShyCm4vSHE2 LyRuUxEqEMmpO6SqTMGa vujzxhdchJL2ETPgAUBk lG74Zc0olWiaLJKn iWMIfW5ojoenm5oocbqp EkFcPTDmXAs9OLo9YAXz oMthPuHuFXG6CsX1TIX1 fETqaG5vmRwrieaq jI5mW9FmJXSiigsjUz12 yE4nLnKsUdE0ASexAoz+ H8wLLvDEHLflJ7qWHBOD SHzBKE4TTJcaqMP+ TOKxEPX9nMwzUGntOKLr uA7mCLGnH2c5RcDkHfP5 UIcdE9SfEVAbtkwzNo72 xW1lPhYqTjG3GVic J7AjwkR2DIBdkJJuYUmi ACI4W67py5G1SLEvPKWy WLO8nNK6nI8gkUaslffz bGVmdDsgdmVydGlj EUkfEMgyV770FVGpeSpa ZeD5XrViUmHtIOW9I9Fz Fzg6IUSduHsuIS5ajNIi WOqaBg1ytAavgBli UP2bMQUsfatiJFYdnI7p LUUemSZllLbbRU0lNZSq xvsuy539KzHgFXB1YUZy yGVpZ6ZvwV2zMcXp XWSoIMWmO7XyzXMuJGjy U524WXlnGoS6YDOumlPk Y4DtRDDyzAfhYcI8x8Z1 Fu4xFHMTNXIfqvsa dGQ+IVLiZZI3xSkdWOzx BJRfwR2aCIMmF8s8JqMh RwS0GVztV0VaXRQnwbrh Vn26tV0nQuTwPtX8 VUjuF5YibxZ3VXBrkUTx JYdkBNY0U04hy7R6QZKg TUHuAXB7lTZ2sY6eqWnd bjogbGVmdDsgdmVy eIilTHscNAdgX072WEAa cDsnPkZFTUFMRTwvdGQ+ OTJjEOY7sPeqMGseTTBq uS7mBFSmJ2l7EoXn CaG7NAdnY9ShIYCqisck Xh16kR2yIhYqFfO2ZRah I6AoyiQ1QMCqnFQfGVhn DOI8Y30hk1J0NGSr KVSuEGK0bIQ7wI4tnVti bjogbGVmdDsgdmVydGlj RQmbQSpaS387FDWpoIvc Js7LXX83WY39U5Wv PjwvdGFibGU+PHRhYmxl IHdpZHRoPScxMDAlJyBz sVvnNJ2yVg4dWJCxCBCm iCbkgOEzGhHak8bs QFNhUFkzQV3zjMquM5Uk sGO2LOBlt3g3Kw26J48q Z7AcmCZ+FSTqnAU6zEZ2 jA7vGrErOvC0HGze A965YwJjhKGmTlszh5wb x6tjxWi1GwVzLVTruvXu nWefLQT1z8ZjVb78J17k IHdpZHRoPSIyMCUi ALJprOwjpm2tlH8iFl4+ PVEeaKL1zDL4pS5aQmKy PuP6NLybI333SkOmhEIa VjouE22zP0OajWS+ JQLvIsa6CAZsqMlxUU4g zAMvZSsjKy7yPPX6HdXs IjJeXEopV5EgRBZlezwu bckkrJN0XDAhVHRj bY33Oa0jhNpuIl8bOXCt DON4CNBlhFFpF2XxiA5p EjViWJEdJVQjD9NofGGq TJopX697KUnsBuD0 SKPbfwGwR1CbUKNqkMug IoP9l6T4Mc5WiRfytRNu RZ0hXnItJZt5N9XzHfo9 WQMtoTxsPQ8kzZGi RXwpBy2wpWpllWzuJN1y GWSlpgoxz326UiJae8bv TXRthIAxEPkzZVJ3E96t i7I6YJZiOZIeRXP3 pFX3yL4qnNdgmxxdkCJe dDsgdmVydGljYWwtYWxp L013NZXjqHhtTwSRZvu9 L5BoTzq0UPFpnPyo RV1zzABtWSqoLv6oiLwj lGudBM2xCAXovxlio869 UwQkt3vfZLUokQUpQYsz CKB8Y68le3J0NILz CDUeZQN5nGB0dS6apOeh bjogbGVmdDsgdmVydGlj CFwzZEznT246AGBivKlm Ul4JLjp2S4McApj9 GCAcpPemHP8boNHqSXwt Wn3ojNcdsWyrSG8oZFRs myfkw360ClDfp3xuVSXy vQIhLKgwZKN9C90v a7M7QOAqUKSnMMJ7wRL8 bS2rqCmobxcrgNBglLxc khVzuBwgKZfoXSjsO649 IHRvcDsnPlBheWVy OjwvdGQ+RU95fz21Q1Fg YqlmGjj6HMCbVIN7fAI3 gA7kMOTaZOunq6J3kGB7 D7KwhrSuse3uf5qx YXB (more content not included)... Normal [facility] .Auto Diff 104-15-2023 Auto [place] % 8 % Normal 04-19 [facility] Comment on above: Performed By: #### 1 [id number], [id number], 4550584, [id number] #### [facility] (DEFAULT) [address] [place] [address] Baso Abs# 0.1 x10 Normal 0.0-0.2 [facility] Comment on above: Performed By: #### 1 [id number], [id number], 9052397, [id number] #### [facility] (DEFAULT) [address] [place] [address] Basophils/100 WBC (Bld) 1.0 % Normal 0.2-2.0 [facility] Comment on above: Performed By: #### 1 [id number], 14712433, 4611151, [id number] #### [facility] (DEFAULT) [address] [place] [address] 90802 Eos Abs# 0.1 x10 Normal 0.0-0.4 [facility] Comment on above: Performed By: #### 1 [id number], 65441939, 3997327, [id number] #### [facility] (DEFAULT) [address] [place] [address] 92211 Eosinophils/100 WBC (Bld) 0.5 % Low 0.9-4.0 [facility] Comment on above: Performed By: #### 1 [id number], 64372277, 4607405, [id number] #### [facility] (DEFAULT) [address] [place] [address] 74265 Lymph Abs# 2.9 x10 Normal 1.3-2.9 [facility] Comment on above: Performed By: #### 1 [id number], 16753869, 5730996, [id number] #### [facility] (DEFAULT) [address] [place] [address] 49398 Lymphocytes/100 WBC (Bld) 30 % Normal 14-48 [facility] Comment on above: Performed By: #### 1 [id number], 37954890, 7312795, [id number] #### [facility] (DEFAULT) [address] [place] [address] 62752 [place] Abs# 0.8 x10 Normal 0.0-0.8 [facility] Comment on above: Performed By: #### 1 [id number], 53750885, 9276657, [id number] #### [facility] (DEFAULT) [address] [place] [address] 03121 Neut Abs# 6.0 x10 Normal 1.5-9.2 [facility] Comment on above: Performed By: #### 1 [id number], 94172835, 7693117, [id number] #### [facility] (DEFAULT) [address] [place] [address] 30769 Neutrophils/100 WBC (Bld) 61 % Normal 44-88 [facility] Comment on above: Performed By: #### 1 [id number], 94493647, 9617838, [id number] #### [facility] (DEFAULT) [address] [place], [place] [address] CBC w/ Auto Diffon Erythrocyte distribution width (RBC) [Ratio] 13.4 % Normal 11.5-15.0 [facility] Comment on above: Performed By: #### 7 131849, 84597360, [id number], [id number], [id number] ####[facility] (DEFAULT)[address] [place] [address] Hematocrit (Bld) [Volume fraction] 40.7 % High 33.7-40.4 [facility] Comment on above: Performed By: #### 7 151961, 91794774, 5304027180, 7420351705, [id number] ####[facility] (DEFAULT)[address] [place] [address] Hemoglobin (Bld) [Mass/Vol] 13.7 g/dL Normal 11.3-15.9 [facility] Comment on above: Performed By: #### 7 316607, 96014740, 5758820936, 5456120637, [id number] ####[facility] (DEFAULT)[address] [place] [address] Man Diff? Auto Invalid Interpretation Code [facility] Comment on above: Performed By: #### 7 444059, 98897858, [id number], [id number], [id number] ####[facility] (DEFAULT)[address] [place] [address] 29104 MCH (RBC) [Entitic mass] 29 pg Normal 24-34 [facility] Comment on above: Performed By: #### 7 376894, 63066438, 0146274576, 4927656499, [id number] ####[facility] (DEFAULT)[address] [place] [address] 86825 MCHC (RBC) [Mass/Vol] 34 g/dL Normal 26-37 [facility] Comment on above: Performed By: #### 7 424490, 78505720, 0581631234, 7995052959, [id number] ####[facility] (DEFAULT)[address] [place] [address] 03677 MCV (RBC) [Entitic vol] 86 fL Normal 81-100 [facility] Comment on above: Performed By: #### 7 476731, 52270492, 5506758210, 6707229573, 1479038284 ####[facility] (DEFAULT)[address] [place] [address] 41650 Platelet 430 x10 High 138-427 [facility] Comment on above: Performed By: #### 7 292492, 38271464, 1198886222, 1410026834, 3018940200 ####[facility] (DEFAULT)[address] [place] [address] 72780 Platelet mean volume (Bld) [Entitic vol] 8.5 fL Normal 6.3-10.2 [facility] Comment on above: Performed By: #### 7 473657, 23147746, 2684388015, 4052912250, [id number] ####[facility] (DEFAULT)[address] [place] [address] 61149 RBC 4.75 x10 Normal 3.70-5.30 [facility] Comment on above: Performed By: #### 7 771744, 92692172, 7715180551, 0012836022, 0196675240 ####[facility] (DEFAULT)[address] [place] [address] 80792 WBC 9.9 x10 Normal 3.5-10.5 [facility] Comment on above: Performed By: #### 7 807076, 08129196, 0126586528, 4777592689, 6691440379 ####[facility] (DEFAULT)[address] [place] [address] 55581 CMP Standardon 04-15-2023 eGFR Non AA >60 Invalid Interpretation Code [facility] Comment on above: Performed By: #### 1 [id number], 16031524, 2937591, [id number] #### [facility] (DEFAULT) [address] [place] [address] 47123 eGFR AA >60 Invalid Interpretation Code [facility] Comment on above: Performed By: #### 1 [id number], 92165019, 4161636, [id number] #### [facility] (DEFAULT) [address] [place] [address] Albumin [Mass/Vol] 4.5 g/dL Normal 3.5-5.0 [facility] Comment on above: Performed By: #### 1 [id number], 89094844, 4757437, [id number] #### [facility] (DEFAULT) [address] [place] [address] Albumin/Globulin [Mass ratio] 1.2 {ratio} Low 1.4-2.6 [facility] Comment on above: Performed By: #### 1 [id number], 55676075, 5373000, 1314707527 #### [facility] (DEFAULT) [address] [place] [address] Alk Phos 68 IU/L Normal 32-91 [facility] Comment on above: Performed By: #### 1 189696549, 32225981, 5618288, 4547205377 #### [facility] (DEFAULT) [address] [place] [address] ALT [Catalytic activity/Vol] 34.0 U/L Normal 14.0-54.0 [facility] Comment on above: Performed By: #### 1 [id number], 88343659, 0213809, 5724323840 #### [facility] (DEFAULT) [address] [place] [address] AST [Catalytic activity/Vol] 27 U/L Normal 15-41 [facility] Comment on above: Performed By: #### 1 [id number], 98747770, 9934173, [id number] #### [facility] (DEFAULT) [address] [place] [address] Bili Total 0.7 mg/dL Normal 0.3-1.2 [facility] Comment on above: Performed By: #### 1 492807656, 10744587, 4221328, 2776483234 #### [facility] (DEFAULT) [address] [place] [address] 84392 Creatinine [Mass/Vol] 0.77 mg/dL Normal 0.60-1.30 [facility] Comment on above: Performed By: #### 1 287604797, 69245384, 4528011, 6712076624 #### [facility] (DEFAULT) [address] [place] [address] 56697 Globulin (S) [Mass/Vol] 3.6 g/dL Normal 1.5-4.3 [facility] Comment on above: Performed By: #### 1 618695972, 89389989, 1287266, 3915783831 #### [facility] (DEFAULT) [address] [place] [address] 82008 Osmolality 269 mOsm/L Invalid Interpretation Code [facility] Comment on above: Performed By: #### 1 [id number], 86794557, 7092974, 8409327557 #### [facility] (DEFAULT) [address] [place] [address] 26080 Protein [Mass/Vol] 8.1 g/dL Normal 6.5-8.1 [facility] Comment on above: Performed By: #### 1 [id number], 66256422, 7732055, 6419292761 #### [facility] (DEFAULT) [address] [place] [address] 85471 Urea nitrogen [Mass/Vol] 10 mg/dL Normal 8-26 [facility] Comment on above: Performed By: #### 1 [id number], 44262336, 3227914, [id number] #### [facility] (DEFAULT) [address] [place] [address] 50669 Urea nitrogen/Creatinine [Mass ratio] 12.9 mg/mg Normal 4.6-16.2 [facility] Comment on above: Performed By: #### 1 [id number], 40804265, 2202598, 5418632769 #### [facility] (DEFAULT) [address] [place] [address] 42374 Calcium [Mass/Vol] 9.0 mg/dL Normal 8.9-10.3 [facility] Comment on above: Performed By: #### 1 [id number], 73340326, 2691174, [id number] #### [facility] (DEFAULT) [address] [place] [address] 62012 Chloride [Moles/Vol] 104 mmol/L Normal 101-111 [facility] Comment on above: Performed By: #### 1 [id number], 52801804, 3332918, 6357976629 #### [facility] (DEFAULT) [address] [place] [address] 24583 CO2 [Moles/Vol] 23 mmol/L Normal 21-32 [facility] Comment on above: Performed By: #### 1 567393104, 47829311, 6510001, [id number] #### [facility] (DEFAULT) [address] [place] [address] 25479 Glucose [Mass/Vol] 94.0 mg/dL Normal 74.0-118.0 [facility] Comment on above: Performed By: #### 1 [id number], 61910569, 2303663, 0852173809 #### [facility] (DEFAULT) [address] [place] [address] 47535 Potassium [Moles/Vol] 3.9 mmol/L Normal 3.6-5.1 [facility] Comment on above: Performed By: #### 1 [id number], 56734247, 2165294, 3926555053 #### [facility] (DEFAULT) [address] [place] [address] 46118 Sodium [Moles/Vol] 135.0 mmol/L Low 136.0-144.0 [facility] Comment on above: Performed By: #### 1 [id number], 40300572, 5470907, [id number] #### [facility] (DEFAULT) [address] [place] [address] 15645 Anion gap [Moles/Vol] 11.9 mmol/L Normal 5.0-19.0 [facility] Comment on above: Performed By: #### 1 [id number], 62372021, 8937490, [id number] #### [facility] (DEFAULT) [address] [place] [address] 30614 ED Clinical Summaryon 2023 ED Clinical Summary [facility] Emergency Department [address] [place] [address]53 ED Clinical Summary PERSON INFORMATION Name: LIA DESAI Age: 22 Years Sex: FEMALE : 2000 MRN: Acct#: Visit Reason: Vomiting - ; NAUSEA, VOMITING, 6 WEEKS Arrival: 04/15/2023 14:48:29 Discharge: 04/15/2023 16:38:00 LOS: 000 01:50 Check In: 04/15/2023 14:48:29 Checkout:04/15/2023 16:38:00 Address: [address] [place] [address] PCP: ROBERT MARRERO PROVIDER INFORMATION Provider Role [...] EDUCATION INFORMATION Instructions: Nausea and Vomiting, Adult, Towa-em-Hwly Follow-Up: With: Address: When: ROBERT MARRERO [address] [place] [address] Within 3 to 5 days DIAGNOSIS: 1:Nausea/vomiting in Patient Understands: Yes - Patient/family/careg iver verbalizes understanding of instructions given Comment: Normal [facility] ED Patient Summaryon 024 ED Patient Summary [facility] Emergency Department [address] [place] [address] 39329 PATIENT DISCHARGE INSTRUCTIONS Patient Information Name: LIA DESAI Age: 22 Years Date of : 2000 Reason For Visit: Vomiting - ; NAUSEA, VOMITING, 6 WEEKS Arrival Time: 04/15/2023 14:48:29 Primary Care Physician: ROBERT MARERRO Attending Physician: Yassine Maldonado MD Comment: Visit Diagnosis: Diagnoses This Visit Nausea/vomiting in (O21.9) Vomiting - ([id number]) The Pharmacy at [facility] is open Saturday through Saturday from [...] alcohol and/or drug addiction problems; contact the [facility] 29/10 Crisis Hotline -Text 2HLPY ei 528777. If you received any narcotics, sedation, or [...] With: Address: When: ROBERT MARRERO [address] [place] [address] Within 3 to 5 days Medication Information: The exam and treatment you received today in the [facility] Emergency Department were for an urgent problem and are not intended as complete care. It is important for you to follow up with a doctor, nurse practitioner, or physician?s pediatric medical assistant for ongoing care. If your symptoms [...] so we can reach you if necessary. [facility] Emergency Department has provided you with a complete list of medications post discharge. Please inform your hammer smith/provider of your visit and for further instruction [...] other disea (more content not included)... Normal [facility] Extra Greenon 04-15-2023 Tube Collected Yes Invalid Interpretation Code [facility] Comment on above: Performed By: #### 7 [id number], 55165354, [id number], [id number], [id number] ####[facility] (DEFAULT)[address] [place] [address] ED Clinical Summaryon 2023 ED Clinical Summary [facility] ? Urgent Care [address] [place], [place] [id number] Clinical Summary PERSON INFORMATION Name: LIA DESAI Age: 22 Years Sex: FEMALE : 2000 MRN: Acct#: Visit Reason: UC - Nausea; NAUSEA Arrival: 04/12/2023 09:25:14 Discharge: 04/12/2023 09:56:00 LOS: 000 00:31 Check In: 04/12/2023 09:25:14 Checkout: 04/12/2023 09:56:00 Address: [address] [place] [address] PCP: ROBETR MARRERO PROVIDER INFORMATION Provider Role Assigned Unassigned [...] With: Address: When: ROBERT MARRERO [address] [place] [address] Within 3 to 5 days Comments: Diagnosis is history of nausea vomiting, during . We provided you with medication help with nausea. Keep hydrated. Eat light, over the next 24-48 hours, soups, Jell-O, avoid heavy meals. Follow-up with your own primary care provider, or your CAN DOFFER physician in the next 3-5 days, for reevaluation. Return to the emergency room for worsening symptoms or concerns, worsening abdominal pain, worsening nausea or vomiting, spiking fevers, acute shortness of breath or chest pain, or any questions DIAGNOSIS: 1:Nausea and vomiting during Patient Understands: Yes - Patient/family/careg iver verbalizes understanding of instructions given Comment: Normal [facility] ED Patient Summaryon 024 ED Patient Summary [facility] ? Urgent Care [address] [place] [address] PATIENT DISCHARGE INSTRUCTIONS Patient Information Name: LIA DESAI Age: 22 Years Date of : 2000 Reason For Visit: UC - Nausea; NAUSEA Arrival Time: 04/12/2023 09:25:14 Primary Care Physician: ROBERT MARRERO Attending Physician: Oneil Salomon Comment: Patient Education With: Address: When: ROBERT MARRERO [address] [place] [address] Within 3 to 5 days Comments: Diagnosis is history of nausea vomiting, during . We provided you with medication help with nausea. Keep hydrated. Eat light, over the next 24-48 hours, soups, Jell-O, avoid heavy meals. Follow-up with your own primary care provider, or your CAN DOFFER physician in the next 3-5 days, for [...] these instructions at home: Medicines ? Take aadc-bpy-axzxcqf and prescription medicines only as told by your health care provider. Do not use any prescription, mbcm-dwy-lrudbkb, or herbal medicines for morning sickness without [...] to yo (more content not included)... Normal [facility] [place] 024 Urgent Care Record [facility] ? Urgent Care [address] [place] [address] PATIENT DISCHARGE INSTRUCTIONS Patient Information Name: LIA DESAI Age: 22 Years Date of : 2000 Reason For Visit: UC - Nausea; NAUSEA Arrival Time: 04/12/2023 09:25:14 Primary Care Physician: ROBERT MARRERO Attending Physician: Oneil Salomon Comment: Visit Diagnosis: Diagnoses This Visit Nausea and vomiting during (O21.9) UC - Nausea ([id number]) If you received any narcotics, sedation, or [...] With: Address: When: ROBERT MARRERO [address] [place] [address] Within 3 to 5 days Comments: Diagnosis is history of nausea vomiting, during . We provided you with medication help with nausea. Keep hydrated. Eat light, over the next 24-48 hours, soups, Jell-O, avoid heavy meals. Follow-up with your own primary care provider, or your CAN DOFFER physician in the next 3-5 days, for reevaluation. Return to the emergency room for worsening symptoms or concerns, worsening abdominal pain, worsening nausea or vomiting, spiking fevers, acute shortness of breath or chest pain, or any questions Medication Information: The exam and treatment you received today in the [facility] were for an urgent problem and are not intended as complete care. It is important for you to follow up with a doctor, nurse practitioner, or physician?s pediatric medical assistant for ongoing care. If your symptoms [...] so we can reach you if necessary. [facility] has provided you with a complete list of medications post discharge. Please inform your hammer smith/provider of your visit and for further instruction on these medications. Any specific questions regarding your chronic medications and dosages should be discussed with your primary care physician(s) and/or pharmacist. New Medications [facility] [address] [place], [place] [id number], [phone] ondansetron (ondansetron 4 mg oral tablet, disintegrating) [...] is not kn (more content not included)... [facility] Coding Summaryon 03-06-2023 Coding Summary HTMLBase 64 QhvjkawrEYi7lNi+PGhl YWQ+ET1EYAOvC94yaWGe iK3dF2YWIBkIPlwxNKER KIrQCqCrqsBsDX7xbAVb ZXJu IC8+NS2qQIJdNwqijFVc j0E7rWB2P95wbo7rGHmb pLX6ZRVrSjLqnwfak4xk sQu4DBffHbpvPmUr FNEtfR10LDC9yP34Uk38 mBOyuCXbe3furMq3GaJu PIRePWW7yYljXCwsy4Rl ELTdL08xpHJrl3S7 IGNvbGxhcHNlOyBlbXB0 eZ7jNLdbrmeat2bzcmoo Jzb6qe23hFAci1R7tFI5 S5DvhtM1BMZddXTg CvhhjIHWgM8kabqxy7mr spjfXaZrZIIkBYe8CZt6 NWZecThxHlJvGF29GAE0 HUHskzJiQ0ToNRMb iTahTnZ7t6Q4Hx8GS8FH KijuE0GYQXGLHJfnzLG+ SK70jc43C1WfDxmiJox3 ZJUdIFD7sJV9kP6e FKChVZsoh1N1rWW5A2Cq rlDicm1oy4blYSEvMKej P73dnSRar7I3QDIsgIM9 MXDeiNmjTyKvhJ84 Oyc+UGNuhYwfu9TvOvyt s4xgg4xxiQo2YkrmOYNj uyFquRfaFCE1h0GyYe4o BQBqpNA7fET5oB2v UiQcRhP1SDahW582OpQw jSXsSqruJ55mE9AorJK+ HLOsZny2WYGbhOaqDP2y L2ErMNKlkoimhZEc qGmdFB6hQUHmixlhYFZi oD4gBLTkM2n1PkVyFqL1 RZfmB1XdTMCihtnpJk24 sJ2zOqDfYrB8CUmc E2TkkcO7SQUryVNePUff ESA9F02ud7N1EJLxNLXv IAS4kOL7gX6viQknvfmx bGVmdDsgdmVydGlj USknNFmfO632TIVddIot PkNvZGluZyBEYXRlOiAg MTEvMjkvMjAyMzwvdGQ+ FIXfBJK5zDvtBANu uZReNVakKo3ypCoycBpt CL3fDXMdadpkBCWiiV6i JLMzpWTxjWvaKI3hZMNn sinup391NiFdTCJ9 VLBeoHOcQ2BpcS8nPpQw RUJrYBHxP4WsdGZsCBwz A494TUurTnS9VGDibvRx W4ZcGDNfjIofKjO2 c9U7Af1Th7QdwxrlF0Lx mKXkWwQbFfewCBo9C7Un PjwvdHI+UO89CJEvIR46 LBf6FTI1nKqeAEkz UDRsL7QpyF2nKhIfPJLu ZGRkOyc+PHRhYmxlIHdp ZHRoPScxMDAlJyBzdHls OJ5pCc8tKXCfYGHv vWeczNXqRaRwt7rlEOYw NAhxXP3xkOimO8KpfJU8 RIEmz6q9Ar38S54wE4Ty dXA+ZHUzaDD2fLB0 iB2hRmYbGaW0RKtsS363 QmEzvFMrPqybw9vnd0nc gCs0QyR5BXPovoCfgVsa DBC5k2RpIf95U42e IHdpZHRoPSIxNSUiIHZh kQnkti8ehK6gAm8+PGNv nPH9oMH8xK8rRtPoEbY2 EKvhH108ExOmaTIy Tgbol0nqm2vfbUz8RfTm KUXmyaGoyQlhPDK3r2Yq Sq40A7WwgXgox0EmTwk6 rq60xQAyb1B0bDE3 L4RqDXAzdylppEQfoHgx CM8bHPMtlloqJLWerJ0c OWTuQ4t9StEfClR6VRml W5VtqgQ0XUTyfHJb QFMyqSWAcG6bxfdrh6up kwerSjIaMDMgVWg6DHt0 KMZfvGuoNpGtYDG4VtX1 LOI0xOOnhH9hlSdb yjvqzV3tOto+FEX1bBLk kLMNVV8vAobzlME+PHRk GJU2oMrwKBhlHYVtkS3i CYDfC0j7XkEnLzB4 NLhwJ1ZlbcT4YNLtgGPt AYPmfSFYfB5fxwbcw0hu hvmuXmLsKKBsSGo6CQa9 LWFsaWduOiBsZWZ0 YcV3MBG4dNJadG2wcZxk jrgkfW3cUsp+QmlydGgg TSO7YIm8R7CwZmg6BNIt nModLY8lnLUaIAqz Xr7dxMrtmXuxBE9tYKGf bonua465HnPss7noOFDy cGUeOUgkQFQ1D01yt2W5 LZEiWHLrUEU6gUA1 vO9edDrlfaevbMOixBkc wfDmjUqhLYurKDtlT921 HXVovKcvQsKaRMp3V3Mi Vgh7VZNpyVbaJL3v tDXbDOwnZw0mwOkjdVfc UZ8nATFtbovod075LjEy t4kyTNYmkVTyHXwzHQI3 A36bo0G6EMGdZUTz IJQ3iFZ8jR0sgRloboqm bGVmdDsgdmVydGljYWwt AGdgN624PTGsjQckMcRy nWj3N3BbAqv4NZJk dFelVP8ssOHiTQtsNj5a zJltaQslZK1fTBCnkkgi c763XsZri4rkDSAtwUZv HJbxHCB5K72zl7P7 GANqWAHzDOM4sMP0pV2d bGlnbjogbGVmdDsgdmVy rQcvPXvfXBzdD835JAOz cDsnPlBhdGllbnQg RSesJLi5X6JkMjqefLP+ WC77ZWNeWS85zNTvsYWu g8ankAy1EjMeSHWkHTD8 qFemBYcov2ZpXVNf J74vuYMet5T5VPVabEzn mJXaZwMzzTY0xZ2aBDux tlhja7ehgzjxUqzym2sc ei40qE53Y09zZFkt ZHRoPSIzMCUiIHZhbGln zn8ubY8jWh0+PGNvbCB3 rIT8oG2iAEHuWfZ5UPqy Q883JiMcrMRiSrll w3fox3igaYp1KkG1VADv eeGvbDtmROL0b9SlWt44 Q44wKXqlEXQoUMTbOMRf VVOneTzjyy0wjT1e Ii8+AMIimEP3hLV6oW5o FoCkEyF3PJkpK863VdTa yDBjJjmjD87gX2RyuVX+ RIKxDiz7VAPpwLra VO0yiMEdEXivAh2wJFV1 XkHgPrCtHPvpR6CqPRJm gknhsvifxAI7OJYuFAZa nN75Ga4fsRqcRAFk sPBEkF1wmfbyh0ahyhib HdVsJLKmSBv9VDw4FAQc aJnlCqUkIBS7KhB4PQY5 cQLgrR9rmPmxhzsx xR2kB7HlPPArmljwQz69 cJ7kPfDdFuA8OTyjUdn+ D7eTXfGVUQooO0cTWELG QPjAFG8LCNskxNB+ WFSoWDI9iZdoGYftNIFc hY1dUCViZ3o0SrNzYvK9 WLvsP8HbEKRmmzusJc72 oG6sDfAbJiD0NFwa Z8UdsbP6QUWbeWPoJDbh QEN1N75pk5O7OKTlQDPa AXR2tDI8dE9xkAkzzafq bGVmdDsgdmVydGlj YOlrXIjaA943VWZldZvy CgH1BhEaMnSpBSK6Q9Eg Pls4KWWaaUwkLM7oyDRh QIchAg7joKdzmWdo LC0eUIFzbsioTQMnaQ2v KBEapYUawLxxCT1zORBc oubkx260VzJtHMA0OGOu qSMrQ9DfbU6cDiWm PBPmUJXoE0WapTTyHOzn P737XCrtOsA9QZGzfaGz S3ZcNNRzoTgxVfE5h0J1 Vf7cZHEUFWZwqpam dGQ+QCPaQHX1gRtuUHle LCDlwE5dIVVxF2k9BhHw AzM7FYtxW6KqYYCaghty Bp65oI0tQkPgEpU3 NKtnH2OmhgE1BFHtyZUj WWovPIE5S22ch9T2GQIm LAPhCPW2gMB1bR7ssOmc bjogbGVmdDsgdmVy lMvoJUdeIOlkO437CYHo cDsnPkZFTUFMRTwvdGQ+ TEEmOQS6aLczUFekTBYm bC5nMZRnD4b5ZoZc GfV5NScbL2TwTMVktesd Ab61nP3yJdJyFqN9SKmo T5PjpgK8ZCUbjVKaUGeq IBN9O89cv2B6UGPx AZEqDWB2uOD4bP9ekQix bjogbGVmdDsgdmVydGlj GZfnZKclD477EDKelDom VeUcWCFsHK3rhKjn dGQ+ZM53wb61X9OoVqso Yho9BDViHRM3dDJ1eC2t MMSmJPwkw6J4gHI4C9Np hjDwus3kz9xxSOIm CCutD13hiTRlw2A2DKGa kNY0HQQceBdnAmYvuA06 Oyc+YIJfsXpgz6YnYmlk c7ayy3jizJs8RkYh VBBcqmOfxMugCTA4w0Oa Rj68X18rNBxlGMRrSIIx QBCeOUYcgEsiex8qwW1u Ii8+PYOsyZK5wNG4 sC6rZiJoCeL8MJckA989 TiPrbFQgEthor7wmf8sj cIp0MmVwYDIvqmBhqXhb NGJ7z4JrBi74Q9Mt sNcol8DpBfw4yg19tEMk u8F9uGI8L3RjSFQsquvl wIBauPhyGZ7eOWCkdhsc MGFcdO4rKVMmB8b1 SnVjEiS0ESzcO1YadmQ9 JOAbiWVvFXDoeEVRgU2j yuoxi7jhdksvHaRuFUHh OFw5JNp6HKAhyXky OlZhIRG8CaJ9LGG5eYUs kJ9dtWvpcpfesP2lGyz+ QZe7z6fheQAtGF3vkDG4 DM86KA43lFMrt8H4 oDD4L2LcWILpxtpniqia yYB3OBOxZDPqsI90Vs7y rKwpGl2eSJYtUTM8EQAw zFThQ9SbjM7fNwHa QGDjRPNaO9MlrTXnNCmc R858ATwpZyC2QECnmzUh O3DiTNQgsKbwYdU9r2N8 Jt4UDE95DG62DF01 xVCnh1L8uFZ4J6UuNVKm stjsgntuaOO0UQToMZUe tP88Yn9tsPdqMl6cFTSj XXQ7CMYbrIEgZ8Nk xK8tEyLyBQFaEXVyK4Xw gBAkZPekU425ILsvYcY1 FJPwstHpQ6QhWRVvlCzl YfQ5b3A0Gv2DWf88 QJ51QX61dUXhr3R1jVM2 T5UwPMWplpkivsqhvSY0 FAZvQXOvbR59Yn5kvTjg Yp1kQUDdBFQ6FYUg jFUxF9JzmB7gYsGnXCRb DZIiM8ZkoZYrTCyhP389 LGisZvF5HKXqulTgS4Dl TPNrcEmsHaY8h8F7 Cr7MAUdiuni4B0BgLnih dHI+KS11GMOeKX19iXOt hNYhe0opnWo9EtJeXALj DPU7sEywQQppn9Ls ZXI (more content not included)... [facility] Coding Summaryon 03-05-2023 Coding Summary HTMLBase 64 AktojupzFOg9tJv+PGhl YWQ+TS2PLBRaK09fkUWa sH0rN0LUAYlGAhkzGACO SNiNFtRivfKtVE0pqLDf ZXJu IC8+WT1gQPYjIzugoYMv p9T9aTU4Z45dwh6uAHfd rNX4RLPmOkJuvkara6ex eHc2JGneOujjSbLz CFWgkS28CXF5vF55Rg95 wIYpfORzf7iqiRu6AbWi CWAiIVT7hNqxQLedz7Mc CSEqW76fbNAtz0C3 IGNvbGxhcHNlOyBlbXB0 yA9xQHlhkcfon7robzwd Epe1fn88pJSbe1T6xFE6 W2BnzdJ2SFWeqOPj YmivuMANnL3esxdwb0yw aeqaXfObQBEwUSs1SHe3 MWWhhZjqGhAmMU91YCJ4 ZPRamnRvS7SmVWZx qLbdNcK1e9U8Lf8ZT6VW MpemJ5QZVQGYCDbuwBK+ VJ13qi78X4VuVsyyDxl3 QYWsKBB6fUH0oG7x TXUdGMnus5U1fUX2C9Qy jhIcnu5yw9vkMVFdZEnj G59xgAJko7H4YJXfyQL2 WVFkwFbcEpTobX35 Oyc+DDGjnXkfv5DeKnwl u6xqz3lepQf5ErxdHPLa qtOymNpnTEZ0a4YtQa9x ADQrpKK7gEB4mA3u WdTcYjK5WJgdY166CdLu kMBnMmagI11mO3PfwSO+ CYVeNlr3ZOAkbLzwLB8r Y8QzHGDxmonftEKn nAspAN5lLHMqubkoJHZt tO6qPYLtN3i2YwVuYuZ8 LXliQ8TpAHKxybgeUu67 kS5bZbOzZeR9PUbg H9XakoJ2USIaxPKsQLhc THC2C54pk2X9GHRsUWTk LQC7dJD6nZ8wyMwdcqun bGVmdDsgdmVydGlj FZflHVtkA181IVNngAnj PkNvZGluZyBEYXRlOiAg MTEvMjgvMjAyMzwvdGQ+ SOLaZDO7oHyuSPTt fEVxCIfgWu8btGvylYdf JZ9lUWBtkwlxEMDuyY5x FZWzqKEeoWjcDP7fVMXt bxbfm280OiPwEYU3 OMJvoDAtT4VnjQ7sPiZu PGQlJXYeX1DhoAZcGUdb K463FDfqStP8GTLvfvOh I6YrMAOczFilZhX0 z4B6Hr9Tg9HvbweeB3Ye jDXiQdNtDkouHAp1D4Jf PjwvdHI+JX90EJQvNZ43 OQq7DHT5jPboZPen PUTbC2ZffO1mKzWjDLFn ZGRkOyc+PHRhYmxlIHdp ZHRoPScxMDAlJyBzdHls YO3aCq5eKTRlXFYq nHhhpWUtXeLio0tlIBTq ORjsRX7aoRdpB5HdnGD0 VVPpa8v5Sg82T51cP0Sr dXA+TALvbXV2zQZ3 fQ1gDzGcPuS8RPevR687 QqCgnOMwGdkvn5ifu5do kGh7NgQ0VLKiqzTviWid BOU9t5WfKd78J31u IHdpZHRoPSIxNSUiIHZh tZmojo1ivQ0uHb8+PGNv xKE4iGC2bK7wFbKgPqL9 KUqbN920PfEdzHEb Dlhop4pjp9dflGk1MmOd CLDjgeUivTlxILT0g7Gh Zo51C1ElxAbdv3FqCfj1 vd68xXPcu2Q9kRD2 L1LpOVIemyhpeRDmlGpe LB3sPZAtyempSUUsnP8e ETTzU5z4EjNpQbN3TQup N4IjwgE5WGWqrRZm DHBgnJMYbY2njhtwi5de wzosUqLlSRHwUZu7XZj4 KALtbUqjSuAlKXO8LsE8 HFB6vKFxeD3fvDfj kwlbpV6iYmc+VPT9hWMz vEZWYL9tMcpjgDS+PHRk RDJ9cWhwQDqvGXJeoK0y DYZtZ8y4TqJuAuO5 EUgoH2IqbgY2FHNrsFKl XEDalLSCpR1ozvofy1cs sloiZgCqENBsAId1VKg9 LWFsaWduOiBsZWZ0 KpK6JXS1yEZjaP4feJvu azbjhQ9gAgc+QmlydGgg DZP2GJi4Z0EaJph7TKLb jUknJK7mxDEjCFmw Ob9skUyjoZqfAU0tFHLc odixb590FoAnp3jgFVPp cVQgAChoJNJ1M46ro1H9 VORzYXGeAFQ7eKE5 pO2lrEvmuwyvoYKuyRlu dxGjlNxjZJklKQqrF078 ARBydEimPhHtFTo1Y2Uw Lnt6QJBlsMzwXE1c eSCsHBybGg7srGngoBvm FH8iTEUhhofyh976NiHk x3hcZKMafGRtDMrqZYQ1 K74uc0O8KCCoSHFa DMB7uCR4bG3uuTuzwpzp bGVmdDsgdmVydGljYWwt HQdiE487JPEjfKhzYnUy mUg0D2ZyMig5MUMs gWzmLA7czJRoMUlzQm8s xSvepQfrJO4hTGFizmyw n884HgUkc4peSAFncATi FQdpBJM9Z87fx0G5 YJTvZBIyIOP5oOF0oC3l bGlnbjogbGVmdDsgdmVy fOgtSLafJOvrH047XJXs cDsnPlBhdGllbnQg QXfwIUi6N6NvTumdcPK+ YJ70BJIvTO75tAKzsZQw j6ozqMp2WoLkUJMbGER3 nNgeYIukz7IhGKTf V67bxKKcy2O5ZJIwvCkp fQTtQlObkVL2jO4sLQxs ppjby2iapmfaIjaec6pz cj65jO43R48eNGds ZHRoPSIzMCUiIHZhbGln aj9deL0vOn8+PGNvbCB3 lYQ3oG5hKEJpHlQ5YFwr L633VaUsqWQqFdag p3yul2pwhMa7AbP5PGHk ngOaiLxaZYY5k1TvOj65 Z70pMUfnPFTcIBNmTLQs OCVudElusc9snQ6w Ii8+DAVsrKS9iJN1xM4n XeXaJhY8EUmlH995SvVe iGPtNeviC25lM3HiiAG+ UCWgQjx3LQRydTxi XD1doSElPYwlOd0aINH4 AeDoDlVxQGfgX2MbLDXe gvumkmtsqLY9ZVUsQLDq cF30Bt0hsLaoCIZv sHEUuG0vdbpvn2jkfjfw KvIjUEDjZAb7MVw8EUDp yAyrJpWrQBX9RjP3DUS6 jPMruA0jdMeqegzi zI7oI5ZrUWNgaxefEr04 cT4yDmOsWgJ8JPbbGut+ H8vEZzWPVJbiF5mCGYLC UPzMRE5LQXadiWP+ MUHaBIH8oRqwIFihEZLr wY4xYHRqT5l3PfCkZaA8 TIotW1PwGXUjqrxfRs82 uZ2eOpFsWqW1YJzg R3XhifA2FYHbzGEeJYph LOI3E39ns8G1SOIvXSDw DMV5zJT1jB2haBtjekan bGVmdDsgdmVydGlj USaeYNkvX004RPMrmXup SwJ9CwMzOhAmMOB2L9Qj Bat3NXCtuMbpVL5ljYTs UFrcXv1rbOwtrRbj AO2rVMOrnyvhVLNtnG2v IOAuqQRxhKbtJL7sKCPm rjasd423BkZuLIO1CSJk bVVqE7EofO9pPiWb OEQoFMGeK0FwkSGmCHtr K206ZVncTmT2BGWijhSh P5GnXXNsuEagUaJ8t8J9 Is9oONNACMJrubsh dGQ+ENYzZEI4mXyuLZsc BVIpsR8yWMViO4x0HgUt VoY7AMnpH7SfAVNewamx Yp84zK3sEmSxVmM3 PPlzL3JejyI6XARbaNQi AVnkLET1R28ur1M2GJZu NNNqCGY3xIV1pH2qgTcb bjogbGVmdDsgdmVy kKjyRKrbYLtuD247NWHc cDsnPkZFTUFMRTwvdGQ+ FIPtWZG4gOvpAKylBMOd zW2yYYIhI6b4OeBr GzS8NOkhH5QiCNGaikvq Zv13jX1kRfWuPmB4SWwa W7GazlT4HNDyqSBmSSom VSA2I86ze0Q3UBGk ZUCoKCC6yMA4zX9zkSfq bjogbGVmdDsgdmVydGlj XYaoRUegG528CVKsmZst Dt1CVB03AU94J6Bl PjwvdGFibGU+PHRhYmxl IHdpZHRoPScxMDAlJyBz bFxkUH3eQa8qNAXtJPNt vAfrrSYyIkAcw8mm GNUvIWmlMP1khKtsQ6Hg uWI6SRAai0n9Fx22I89d M8PjgMZ+PUJnoNR1bWC6 dX7iWhZgKcE3VYjl Q915DgHrmMMnHeahv3fr b6yfpPg0DfYvTXMiytMt zMcqBHW2d2PpZk68Q54r IHdpZHRoPSIyMCUi KJXbiZmtft1cbA3lGz6+ EYZfnLW6cCM4mV9wNvLk AeJ9MOvqZ855DlNkwYKq GnwoJ74nH8LsmZF+ DLJdIqm6DYYknWloLR8r tIEwHEhrUe7nEIB7IqDa LvCjSGfvA1ZoFRToxbsm vectjEC8XRYmDRRb zA40At5ybObnNo6dFDEc ATH6DQPtdZXaO8WrtV2l ClIzNIBeUJXvT3PlkTGm JAvyQ476KSigCtO8 RGXxyiDmW1ZtYHZkfJum UfA9w6R8Lm7QwBewbRLh ZP0tPcRrTTy4B8KmPns7 TXGnoSfpRJ4pwYNn MUdqCe2ncKfcoLsdMO3h MIOtosiwq826PmDzt4ju CVTvcIRqXGlsMHK6S40o p2C5WCLgYSJePIJ8 yCT9hP2hzAblnibpeFGo dDsgdmVydGljYWwtYWxp Q117EHRvbGipVfTPVrw1 R4VmFpg8PMVebXcb DK1kgTJlJSjuMi7wdLpa tCgnCG1wYKGuyfkgl630 FlQer7plEWWasJNfGOwn BDP9G10ny2E2GYTn IRAnQHF4wVX1kO5bsEyg bjogbGVmdDsgdmVydGlj WFcmYPldX245NIEwyJaw Pa4RJeg7M3CsBgf8 PXEzkSkfPC3kfFViVNmz Nx7ruUxirEunID4kQMFy ugegy512KtJye7nzPYQc oLZbJTimFID4G43a p6E5MRKoJTUrVPE4vKJ0 hI3vpYxcguxjvIQibMtg jbCjyGenKBiuQIqgY355 IHRvcDsnPlBheWVy OjwvdGQ+FA94mf17U9Df HpllEmt7AAWwNFH4lIK5 xL9cLKVdNVsez3O0mXF3 D7XmwaEkgw1rr6vn YXB (more content not included)... [facility] C Throaton 03-03-2023 C Throat Ordered by Radha. Normal throat jonny isolated No pathogens isolated [facility] Comment on above: Performed By: #### 6 [id number], [id number], [id number] ####[facility] (DEFAULT)[address] [place] [address] .QC SARS-CoV-2 (COVID-19)/Fl u/RSV (GeneXpert)on 03-01-2023 Internal Control Pass [facility] Comment on above: Order Comment: Order ed by Radha. [[email or web address]] Performed By: #### 6 [id number], [id number], [id number] #### [facility] (DEFAULT) [address] [place] [address] COVID/Flu/RSV (GeneXpert)on 03-01-2023 Flu A (GXpert COVFLURSV) Negative Normal Negative [facility] Comment on above: Performed By: #### 6 [id number], [id number], [id number], [id number] #### [facility] (DEFAULT) [address] [place] [address] Flu B (GXpert COVFLURSV) Negative Normal Negative [facility] Comment on above: Performed By: #### 6 [id number], [id number], [id number], [id number] #### [facility] (DEFAULT) [address] [place] [address] RSV (GXpert COVFLURSV) Negative Normal Negative [facility] Comment on above: Performed By: #### 6 [id number], [id number], [id number], [id number] #### [facility] (DEFAULT) [address] [place] [address] SARS-CoV-2 (COVID-19) RNA MILY+probe Ql (Unsp spec) Negative Normal [facility] Comment on above: Result Comment: Perf ormed by PCR methodology. Performed By: #### 6 [id number], [id number], [id number] #### [facility] (DEFAULT) [address] [place] [address] ED Clinical Summaryon 2022 ED Clinical Summary [facility] - Emergency Department [address] [place], [place] [id number] ED Clinical Summary PERSON INFORMATION Name: LIA DESAI Age: 22 Years Sex: FEMALE : 2000 MRN: Acct#: Visit Reason: Cough; Throat pain; COUGH, SORE THROAT Arrival: 03/01/2023 14:12:36 Discharge: 03/01/2023 16:04:00 LOS: 000 01:52 Check In: 03/01/2023 14:12:36 Checkout:03/01/2023 16:04:00 Address: [address] [place] [address] PCP: Provider, Unlisted PROVIDER INFORMATION Provider Role [...] verbalizes understanding of instructions given Comment: Normal [facility] ED Note - Physicianon 2022 ED Note [...] Resolved Disease caused by 2019 novel coronavirus ([id number]): Onset on 11/23/2020 at 20 years. Resolved. Comments: 11/23/2020 CDT 16:07 CDT - SYSTEM Problem added by Rule (IC_COVID19_AUTO_PRO BLEM) following 2019 Novel Coronavirus (CoVID-19), MILY L from Nasopharyngeal Swab collected on 22-NOV-2020 16:44:00 EDT tested positive for COVID-19. no history (646288174): Resolved. Contact dermatitis (97356417): Resolved. Pharyngitis (0000143463): Resolved. Cough (02356952): Resolved.. Surgical history: Tonsillectomy and adenoidectomy (994288747).. Family history: No family history items have [...] any worsenin (more content not included)... Normal [facility] ED Patient Summaryon 023 ED Patient Summary [facility] - Emergency Department [address] [place] [address] PATIENT DISCHARGE INSTRUCTIONS Patient Information Name: LIA DESAI Age: 22 Years Date of : 2000 Reason For Visit: Cough; Throat pain; COUGH, SORE THROAT Arrival Time: 03/01/2023 14:12:36 Primary Care Physician: Provider, Unlisted Attending Physician: Tom Smith DO Comment: Visit Diagnosis: Diagnoses This Visit Asthmatic bronchitis (J45.909) Cough ([id number]) Throat pain (658311020) The Pharmacy at [facility] is open Saturday through Saturday from [...] alcohol and/or drug addiction problems; contact the [facility] 29/10 Crisis Hotline -Text 1MONO cd 237335. If you received any narcotics, sedation, or [...] and treatment you received today in the [facility] Emergency Department were for an urgent problem and are not intended as complete care. It is important for you to follow up with a doctor, nurse practitioner, or physician?s pediatric medical assistant for ongoing care. If your symptoms [...] so we can reach you if necessary. [facility] Emergency Department has provided you with a complete list of medications post discharge. Please inform your hammer smith/provider of your visit and for further instruction on these medications. Any specific questions regarding your chronic medications and dosages should be discussed with your primary care physician(s) and/or pharmacist. New Medications [id number], [address] [place], [place] [id number], [phone] albuterol (Albuterol (Eqv-ProAir HFA) 90 mcg/inh inhalation [...] Acute bronch (more content not included)... Normal [facility] Strep Aon 03-01-2023 Strep procedure control Pass [facility] Comment on above: Performed By: #### 6 [id number], [id number], [id number], [id number] #### [facility] (DEFAULT) [address] [place] [address] Streptococcus A Negative Normal Negative [facility] Comment on above: Performed By: #### 6 [id number], [id number], [id number] #### [facility] (DEFAULT) [address] [place] [address] C Throaton 02-28-2023 C Throat Ordered by Discern. Normal throat jonny isolated No pathogens isolated [facility] Comment on above: Performed By: #### 6 [id number] ####[facility] (DEFAULT)[address] [place] [address] ED Clinical Summaryon 2022 ED Clinical Summary [facility] ? Urgent Care [address] [place] [address] [id number] Clinical Summary PERSON INFORMATION Name: LIA DESAI Age: 22 Years Sex: FEMALE : 2000 MRN: Acct#: Visit Reason: UC - Sore Throat; SORE THROAT, CONGESTION, BODY ACHES Arrival: 02/26/2023 09:55:01 Discharge: 02/26/2023 11:28:00 LOS: 000 01:33 Check In: 02/26/2023 09:55:01 Checkout: 02/26/2023 11:28:00 Address: [address] [place] [address] PCP: PROVIDER INFORMATION Provider Role Assigned Unassigned Errol Ortega ED PA 02/26/2023 09:58:25 Birdie James DRY CELL SEALER Nurse 02/26/2023 10:17:32 VITALS INFORMATION Vital Sign [...] verbalizes understanding of instructions given Comment: Normal [facility] ED Patient Summaryon 023 ED Patient Summary [facility] ? Urgent Care [address] [place] [address] PATIENT DISCHARGE INSTRUCTIONS Patient Information Name: LIA [...] to help relieve symptoms, such as: ? Mhxl-mkt-kcwhuzj cold medicines. ? Cough suppressants. Coughing is [...] other clear broths. General instructions ? Take xexg-ncw-cvmmulw and prescription medicines only as told by [...] infection to other (more content not included)... [facility] POCT Rapid CoV-2 (COVID-19) Antigen/ Flu A&Bon 02-26-2023 Influenza A POCT Negative Normal [facility] Comment on above: Performed By: #### 6 [id number] ####[facility] (DEFAULT)[address] [place] [address] Influenza B POCT Negative [facility] Comment on above: Performed By: #### 1 [id number] ####[facility] (DEFAULT)[address] [place] [address] SARS-CoV-2 (COVID-19) RNA MILY+probe Ql (Unsp spec) Not detected [facility] Comment on above: Performed By: #### 1 [id number] ####[facility] (DEFAULT)[address] [place] [address] Strep Aon 02-26-2023 Strep procedure control Pass [facility] Comment on above: Performed By: #### 6 [id number], [id number] ####[facility] (DEFAULT)[address] [place] [address] Streptococcus A Negative Normal [facility] Comment on above: Performed By: #### 6 [id number], [id number] ####[facility] (DEFAULT)[address] [place] [address] Urgent Care Note- Provideron 02-26-2023 Urgent Care [...] Resolved Disease caused by 2019 novel coronavirus ([id number]): Onset on 11/23/2020 at 20 years. Resolved. Comments: 11/23/2020 CDT 16:07 CDT - SYSTEM Problem added by Rule (IC_COVID19_AUTO_PRO BLEM) following 2019 Novel Coronavirus (CoVID-19), MILY L from Nasopharyngeal Swab collected on 22-NOV-2020 16:44:00 EDT tested positive for COVID-19. no history (838380807): Resolved. Contact dermatitis (39051780): Resolved. Pharyngitis (2698358611): Resolved. Cough (16621129): Resolved.. Surgical history: Tonsillectomy and adenoidectomy (623229205).. Family history: No family history items have [...] collect, Matilde (more content not included)... Normal [facility] [place] 023 Urgent Care Record [facility] ? Urgent Care [address] [place] [address] PATIENT DISCHARGE INSTRUCTIONS Patient Information Name: LIA DESAI Age: 22 Years Date of : 2000 Reason For Visit: UC - Sore Throat; SORE THROAT, CONGESTION, BODY ACHES Arrival Time: 02/26/2023 09:55:01 Primary Care Physician: Attending Physician: Errol Ortega Comment: Visit Diagnosis: Diagnoses This Visit Myalgia (M79.10) Other viral agents as the cause of diseases classified elsewhere (B97.89) UC - Sore Throat ([id number]) Viral sore throat (J02.8) Viral upper respiratory [...] and treatment you received today in the [facility] were for an urgent problem and are not intended as complete care. It is important for you to follow up with a doctor, nurse practitioner, or physician?s pediatric medical assistant for ongoing care. If your symptoms [...] so we can reach you if necessary. [facility] has provided you with a complete list of medications post discharge. Please inform your hammer smith/provider of your visit and for further instruction on these medications. Any specific questions regarding your chronic medications and dosages should be discussed with your primary care physician(s) and/or pharmacist. New Medications [facility], [address], [place] [id number], [phone] dextromethorphan/gua ifenesin/pseudoephed rine (Capmist DM 15 mg-400 [...] their own, without (more content not included)... [facility] Coding Summaryon 02-22-2023 Coding Summary HTMLBase 64 TtkxwjpzYXr2zYm+PGhl YWQ+FY7GTRRhR61djKZa gF3xR1NWNHvYBbkiBHAZ GOrCPzUqdrEaEF6avIRe ZXJu IC8+YR1iSNOpLzhfyASo k3D2oLK0D96oul8rIEjq yZI1CODgObQymbrcf0ll wJq1BSyjVyjjTjZk UXGmuU62YTO5pD15Tw88 bJSnzDIbw8pvjTp0ObRy KTMsYLM9cXrxJFcst9Pb IEWcK28osVYoq1X9 IGNvbGxhcHNlOyBlbXB0 bV9cNPjdddvnt0sjdesw Bdo7ol87eIOaj4I9hTR1 X3UwxbI8LSXxlCFi GiidrBONwP9xfmhlg7cf czmqZrSbSEOxCKw5RWx4 BZFeeQucSyQkHF09ZTY7 LNIkbmObV2NiFBKn vIufBxH9g8S4Sc0VO4IM PkrrY9SFSHJCLAdbyPI+ JS57ua70B9FdAjwoTce5 FKKsPLN9eAD6pK1f DBUcOQiyi7L9nLH3M7Ec wjNtak9ds5cwSRClGMhs Z77eeBXzv6C2UTQwpWG2 ZUGeuKqjYoHsuI55 Oyc+QILiaHdhp5NfHosa k0hhc2jmmNs7RdbeCHRq mdMipTdpDOC8y6BxOu5x UTZjlRK9qAG0xD0c RzRtIhW9IDrxU609XoAc pNOiHtbtE09wO4ObgAH+ VFBuDsg6QMBkfClrYV5v O3ZrSJEmeluagDPi gHqlQO6fJDBzzqcmBAVt wJ1aSLTjI3n3GtZxKxH4 VKofW4TmFCGewvgzPf01 aZ8wQfRsFdH1OYvk B8CljwU3BWUbjNUnASua RTC5E44zg2Q7OBRjOWBd UKO1vXV6yV5nzShkkarj bGVmdDsgdmVydGlj ORcxHDymS347VTKupRax PkNvZGluZyBEYXRlOiAg MTEvMTcvMjAyMzwvdGQ+ NLPzGCI9qSdaUQYi vTRtZCoxJr9boRsdyQdf GV1fTWZqjfhsCCZrnB7v FLWxkCBepBdgTY9pAIAg rfdxr206HmScLUL1 JJAmdILzG1QnyG9wDuVd OTZhYKKbB5TfwYRgNRuv I931QDfvUwH1REOkqaEf B9WgTYUxyLvnFtT2 l0O2Eq2Mq8WjdcxlU9Wy uZAlXlYfRfckZOc3U7Ks PjwvdHI+OS07IJIoPC77 AWo7FTB0sMeoNLnp SYTnD7QlkJ6gArDnAZBq ZGRkOyc+PHRhYmxlIHdp ZHRoPScxMDAlJyBzdHls EK7yAi0yKOYmZSGm dHoioJPeQwCbh5nyZIXk FDycDJ2shOptC2ZplFR3 YFRjo5v6Lf51D21fG6Pd dXA+XWItjQU6vTQ5 kV2jPcWqAiZ4WKytH337 DhDdoVUvYmnxo4duc2xe fOh9RhD9JWNrnpQmwRzp JDN3f6UfZm29V53m IHdpZHRoPSIxNSUiIHZh pDvwnb5jeI0cTd0+PGNv iUW8fEO9aO7mReSgNfD9 FVngK291YjGkcAOy Ufrqb9vqv8ismHi6BhWd QLKcrtKsiDddXVU8n5Nd Iy35R7EyqAelo4UrMra4 lj67sXFyl2Y9jEV5 D0YzWSJbocouaKTvsPam ME6aLZGpwbbkPEIwtE7l GCTkC6c0BfHmUhD1DLxo E1XivsR4AWPorYOq LDKzlIQEgL4jkigfc7rz jowiOmEuIGJzATa5FSa8 OLNfrKryIoHtXGG6SaR2 PFY7xBAjbE8rzYjk dkaemT8gQgs+CIH5wPRf zSFPRY8uErrfnWA+PHRk FSD0wCcgVGfzETUygI3n IWOnZ4i4XoCcKnR9 YDutI6JzdsG8KXSmsGVb HGAivSHBpY0egqlhv0hj sxiwYaUxKJPmZRt5CAh7 LWFsaWduOiBsZWZ0 XqO1PRT7iOFjtL8bcChc divwpI1cHum+QmlydGgg ZAS9XGm7E4ZtEnf1JAKp dLmcMK4yoQLfSFyq Mt9zmIffuYylOX8bMNGd yipbs673YpQvb5onKSUy oGSfCAwePQQ3C22ic1G5 FXNiGCVtVUY1vZB6 qY6qhAheayzgdFSomXdv kyQrqOllMDigAPhkS551 HYFmbDovEfHtCPz7F8Da Fju1MNMajIakQQ7w mBImWFzqLd7ooYhcpPvx AK9ySKChqrtst716FgVc c1phGZDgcDIfLXzcCUO9 F28jq5I0QECsLPKx CNO8aDO7wX1xmInjqqrd bGVmdDsgdmVydGljYWwt OBlvM513INBkuQrqQpZl fHb1N2SqWja5JWBu nNyfZY5ghLVuJYokKy8y oFdtcPotIR6mXZLwnwpr p090JkSsk0mbGKEtvUBd QPpbEQN3O16ez0O7 ZMFtYAIgWZR9oON7rI7k bGlnbjogbGVmdDsgdmVy vYhwWGsvLFzvM880XQPp cDsnPlBhdGllbnQg CBvjOKk2L5QgZerzePU+ LP25BHThQG88kRQypAJh k5srcVc1LrHoQSWwPAG6 vHyuWIuei3QiIUXa U67ofVTdw5C9FQBncJry cDTmBmRooPU1tX8fTEum ngdiy0asnjmmXvfsb5jp yu62yW97I19nSHuc ZHRoPSIzMCUiIHZhbGln re3cdB2dPl4+PGNvbCB3 oJZ8oS3hQLWhEkO1DXey M193IyIoeLKdNbub k9rrh1kpxEx1TfX5LLGd qlUkmXgnOWR9m3DzDi28 J06uENdiMELaLEFzFVEe YTUzwFnxen8ieR2n Ii8+OJEjuAR1yDC0kE6p XrOoKdQ7TNcbH412MsQm nLIeUlzhH32dQ8TyaZR+ WISfPck9XUVktVgw DF4qjGBbCQixDi7bYTA3 XwInXaFcHOrbZ5SpKCWv zjhmvlkaqSW5OFIzULPy mR31Vf8ybFelWFEd rLAWoT9kjqhar9bnwqjp EjLvSYByIXp3VOi6YYCh aRcbLtKwHSY0LfG3JOK4 vDUujJ9ckIvrvvrx xS7vU0ToEPLdyqyqSb23 jG2xMiHsHrA5CFwtZld+ O1nYGdZOGIwdG7rUTSCI ZHyNUL6YCVweaMY+ SKHgRKI8sWclQHahHUDr dP2nAYQuY0x4KpLvZdV0 DCdcW9FyQJZhhnqtHm32 vB5yVfIzZdV4EZfw W5ZngxV1OMIfiTQeOLby ORX5L65yy7W2SXItNIQv DGB7jGX6yU5vnZfbdkzu bGVmdDsgdmVydGlj TNjhANkuH677MQNvoXfh DvI2KzHtLbUlEOX2K1Uw Umy7LKYmnZyzYU4fcUSp TOeqEb2jgHnwtUao TR7vZUNnhsusIHTecE3n WINziPVlhRceFF4iUMXy mdhrx895FhNmOTQ0EWJt pTUeV8EouJ9fXlTe XLGcNDJoX4DpxDIbUUvs U783WCnmRaR4KBDzxdDd C3SgAQAdtHrfApA6r4X9 Xq4oTZWPFPXnrraw dGQ+RHEaIXC9aSfaKRaf NBGsrC4xTPSeK6p2QlTp TvK4YPrsQ3RvOKPrmrfp Mq34qU7mPnPmJxU0 VEgnI7GtnqH7BCEeyKVg LXlzPJU2U43nn8L9YUMd WYEdYFE6pVB6uR8kyLam bjogbGVmdDsgdmVy eFtxQIiaKKraF086TDZg cDsnPkZFTUFMRTwvdGQ+ HDYcFCR2wUmyDVmoMYUk tN5mRCKuX7w0HhFz YqE0SGwmR4AoLRWigbaz Ro20nR1zWvUrHpM4LOsy Y1NantB1BUFgjRYlTFvy TOO9H95pa0C3KSCu QGTuOAR4wZF0wC0soHif bjogbGVmdDsgdmVydGlj KNeyUCeqI539VQBpbChs Lp4QKL65VE40E2Jt PjwvdGFibGU+PHRhYmxl IHdpZHRoPScxMDAlJyBz vHoeVM7kNc8wBNVwUQKx zGkuhVDkRsLqq0me KRHlRGhfBD1wyFusZ7Qj lSV5EZXlf9e0Tv96Y24c N7YzfTD+PDDnlGF1aVA5 rY5tZcBsOtE5IZsz R612KcGiaADpWczoj6qs j4rfhQl5FvBdYFPlryXr yVuqREM6i2TdXo67Y15z IHdpZHRoPSIyMCUi JINqaSutqc0jxK4yNk9+ FFZgeAM4tZT7bI8uKjNm LmA3UTyaQ019ExQlgNId HrnuG90vA2KnxAE+ FDWfGnl3YHXqqBdgZA7t jGDlEWdkWj8eKAF7HhZs CeOqPFfbE8EqFNLlfzad opyijAJ2KCXaVIBn aQ85Bb9pcVywZc9iBIYr FZJ3MRDftEKbV5FweD6j LwAfNSYnZBUmE6WxmKCi KYudA334ZTaoPdP3 JOLfnoPwC8GiRENnuCxq TpE2x4S1Qr6CuMnoiUGv ZB9wGiVzQFm3C7IkQmi9 ZOPtrJufSW0ltCQi VCeuEe0myKamfGghUC0b YVKsjrqsq836TyXxm5mc RLVzpSCsHTvbCOA4H30e u2R9UKLiAGSaZWC0 gQP2tI6lhMjvluxyzOSb dDsgdmVydGljYWwtYWxp U816BNKzlGumUoBGEps6 U2VrVfq4WHVxbEfi BG1jkCSzCOsjZg8rsKla oOkkMC5sOIUzbamun453 FjTvy5rsBMVykQFgBZje BLB4P06vr8U4SBVu ZGCkHIF8uPT0wN7mpVtg bjogbGVmdDsgdmVydGlj QLvwGBfrW385HWDibVra Lr9SWun6Y9XqGhq7 QBZuvRsjIJ2dgNIoMOew Ac1ueNoilPocLU1jIPIe xklvz452QrYfw1dkOFOq nRCtROpaGUH6N85u i5V8IWLeEXOuEEP5pUP4 oX0wbKlycwwmsKKyxQuv kyCqzIyfJKwpFUtjJ970 IHRvcDsnPlBheWVy OjwvdGQ+BI60of78C6Tz NzxgTqv7YWVkHMZ6oKM7 fF4yPDIxDWgay0X7rEX3 R2DdsiNnlx8vl7fv YXB (more content not included)... Normal [facility] ED Clinical Summaryon 2022 ED Clinical Summary [facility] ? Urgent Care [address] [place] [address] [id number] Clinical Summary PERSON INFORMATION Name: LIA DESAI Age: 22 Years Sex: FEMALE : 2000 MRN: Acct#: Visit Reason: UC - Wrist/Hand/Finger Pain or Swelling; LT HAND INJURY Arrival: 02/14/2023 17:07:31 Discharge: 02/14/2023 18:05:00 LOS: 000 00:58 Check In: 02/14/2023 17:07:31 Checkout: 02/14/2023 18:05:00 Address: [address] [place] [id number] PCP: PROVIDER INFORMATION Provider Role Assigned Unassigned [...] Therapy Follow-Up: With: Address: When: Regla Hernandez [phone] EXT: [phone] Call for family Physician Within 3 to 5 days Comments: Call for help finding primary care provider. Follow-up for reevaluation. Continue with rest ice and elevation using ice 10 minutes out of every hour as needed. Return for any worsening issues or any other problems. With: Address: When: [facility] Comments: [phone] DIAGNOSIS: Contusion of left hand; Left hand pain Patient Understands: Yes - Patient/family/careg iver verbalizes understanding of instructions given Comment: Normal [facility] ED Patient Summaryon 023 ED Patient Summary [facility] ? Urgent Care [address] [place] [address] [id number] PATIENT DISCHARGE INSTRUCTIONS Patient Information Name: LIA DESAI Age: 22 Years Date of : 2000 Reason For Visit: UC - Wrist/Hand/Finger Pain or Swelling; LT HAND INJURY Arrival Time: 02/14/2023 17:07:31 Primary Care Physician: Attending Physician: DORA JASSO Comment: Patient Education With: Address: [place]: Regla Hernandez [phone] EXT: [phone] Call for family Physician Within 3 to 5 days Comments: Call for help finding primary care provider. Follow-up for reevaluation. Continue with rest ice and elevation using ice 10 minutes out of every hour as needed. Return for any worsening issues or any other problems. With: Address: When: [facility] Comments: [phone] Hand Contusion A hand contusion is a [...] elastic wrap to support your hand. ? Qnml-kyb-tlfufgh medicines to control pain. Follow these instructions [...] or lying down. General instructions ? Take dimi-ibi-hdekftj and prescription medicines only as told by [...] provider. Document Revised: 07/13/2021 Document Reviewed: 07/13/2021 [employer] Patient Education ? 2022 [employer] How to Use Cold Therapy Cold [...] the area (more content not included)... Normal [facility] Urgent Care Note- Provideron 02-14-2023 Urgent Care [...] All Problems (Selected) Anxiety / SNOMED CT 49902455 / Confirmed Acute depression / SNOMED CT 3160956902 / Confirmed Chronic post-traumatic stress disorder (PTSD) / SNOMED CT 938073622 / Confirmed Pharyngitis / SNOMED CT 9012311395 / Confirmed Cough / SNOMED CT 54735431 / Confirmed Objective CONST: -Well-developed well-nourished. -Acute distress: No -Vitals: reviewed. SKIN: -Gross abnormalities: No NECK: -Supple ([id number]): non-tender. CARD: -Rate and rhythm: Regular RESP: [...] and Plan: Diagnosis: Contusion of left hand ([id number]-ON S60.222A), Left hand pain (BNF83-TG M79.642). Orders Orders Patient Care: Brace/Splint ED [...] on: 02/14/2023 18:01 EST] DORA JASSO Normal [facility] Recordon 023 Urgent Care Record [facility] ? Urgent Care [address] [id number] PATIENT DISCHARGE INSTRUCTIONS Patient Information Name: LIA DESAI Age: 22 Years Date of : 2000 Reason For Visit: UC - Wrist/Hand/Finger Pain or Swelling; LT HAND INJURY Arrival Time: 02/14/2023 17:07:31 Primary Care Physician: Attending Physician: DORA JASSO Comment: Visit Diagnosis: Diagnoses This Visit Contusion of left hand (S60.222A) Left hand pain (M79.642) UC - Wrist/Hand/Finger Pain or Swelling ([id number]) If you received any narcotics, sedation, or [...] legal documents With: Address: When: Regla Hernandez [phone] EXT: [phone] Call for family Physician Within 3 to 5 days Comments: Call for help finding primary care provider. Follow-up for reevaluation. Continue with rest ice and elevation using ice 10 minutes out of every hour as needed. Return for any worsening issues or any other problems. With: Address: When: [facility] Comments: [phone] Medication Information: The exam and treatment you received today in the [facility] Care were for an urgent problem and are not intended as complete care. It is important for you to follow up with a doctor, nurse practitioner, or physician?s pediatric medical assistant for ongoing care. If your symptoms [...] so we can reach you if necessary. [facility] has provided you with a complete list of medications post discharge. Please inform your hammer smith/provider of your visit and for further instruction [...] This is (more content not included)... Normal [facility] XR Hand Complete Lefton 11-0 XR Hand Complete Left CLINICAL HISTORY: Left hand pain. Punched wall. TECHNIQUE: 3 views left hand. COMPARISON: 12/15/2019 RESULT: No evidence for acute fracture. No dislocation. Joint spaces appear maintained. Soft tissues unremarkable. IMPRESSION: No acute findings. Final Signed (Electronic Signature): Gavin Mahoney MD 02/14/23 5:54 pm Technologist: KELVIN PATEL [facility] Coding Summaryon 11-27-2022 Coding Summary HTMLBase 64 EmoariglABb8rVu+PGhl YWQ+DZ8XHJRnR43nwDHo mA0xX1GHZNmYGnpcNGUM DXvZKdYyycGrOB6upUQb ZXJu IC8+RJ1vPTOzGqasgDIf w5C6gII7V21bxe6nTExw oBY8IOJdTqPivenbj8iv aZx7OUqzVccrNiUx FXKaaL07COI3oC59Kq14 rLIbbULhv4zlxHv3AzWr OFFtLYF6rIliDRfcl1Am RNBqO36zlAMlq3I9 IGNvbGxhcHNlOyBlbXB0 mF5wAIotmqsya1zcivrb Sof1lj91vMWbo3Q1bQK3 J5WwfiZ5SQUrxCPa XvngkOGSkE1wdbkok7vd jxqzIsIxYVZgDPt5DEr7 IABwmAxbTlTlPG95MXV2 VCLrhsMjQ6LbJAWb xBfzRwS6m7C2Tc5XT8OX WrooB8GDDAZCNBmkbHE+ TJ67uu33P9SmBvvyShp6 WNWgMMQ8vON3oY8j RUFiVXlbc9Y9lUG1B3Dc xaRwab9hj2mhGNJyRHll R91dbMYsl6Q3NAXfoHV7 BUYevJtgChDskF03 Oyc+BFBhwVctc4BkVkod a2odr8pruZh0AjcjWZGm xcYigEutXKX6d1RuNg4q EWThjDV0eEB8kP2g AnLrJdO7JLbaL790KxFh uESrUswkR57zM2OxoDU+ TBEaLkp4RWNoaRamLT9k H3YsRYBwoyreoDMv sXsrDN2vTPYnqctgYNEz cF8sVGCrB6j4YlXuIyZ8 FGnvA4SoEWGapnvzGr74 rS3oDhAzFjN4KGsd Q7SrxwI4YNEquHWbEGwz HRI5V00ox3K1VAIdRMFo FEL5oUL2rA1hwUgmertw bGVmdDsgdmVydGlj MRomWDdvO285JNQjlCrb PkNvZGluZyBEYXRlOiAg MDgvMjEvMjAyMzwvdGQ+ BCGjJQN2rMvtANGh pXWjUAlyFq1urVujwYth EA1nRLBmhlhwBBGasZ1n XBXbaQUazJfeOH1pHYSt sqoqp074WcPnOEL8 JZSrvPXtU1GejO8zPzAo PHFkGTFkO8UhwAZwDFiq O847MEtyQwP1WPIpurVf J2QpPQHytKseYwX1 p1E8Ua5Mq4YgmyfuV9Bf ePRaAbSwOjvjKJt9E1Ix PjwvdHI+ZG41DWDnDD38 XPl2KFV9pQqaSGzr OJAaF0HucL2hGaTvSZMp ZGRkOyc+PHRhYmxlIHdp ZHRoPScxMDAlJyBzdHls PB2jMq8qPREnZTCg kKgzhFMnNeXmf5aiOVPb ZWrdBH6jqJcfV5KzuLB2 LBPvz5p3Ss84R72cH7Tw dXA+HGDikFU2gJA8 qF2rTgCfKiZ7STieW538 PsGceEMyJmhvw8qze5qq bXd0WoJ3EQStjoWeuPpl FXE1v1UcZa34V97q IHdpZHRoPSIxNSUiIHZh hNoghr6hgP2lOf0+PGNv jOL9pUR2kK6lYySdMwL2 UJjkD929CpDodSHz Fxyas0htx8qtqBb5IaMf XVNwtlHjmMijWKM8l0Ay Jn77K2VmzPiso3OgUqd1 jb28sGXxm5K9eLK7 H4FzPTNcaiztpMXazCei JA9xHBMimwtlSSWhrU7g MQAjW5d4LjOxVmG8JKtn P4AeldP6XIGjhHFr SCBfdYFDgJ6mvbees2sk vuorRiVbPWNgKXt2OFx9 UDHkcPlsVpXnXYC6JxY8 ZJF1uUJkfI2ppIfv tqrdrG6nTxs+EAO1wYDs bBNHYG6hLiifvDC+PHRk WNV4dSolQXhuDSLxqR1m DSIpI2p5TxWdQaF7 NSykP3GsdnS8ONSkdSUr OVUwoSECoV1lppsqn6fp zhbwUuXeVWCxSJf3FGs9 LWFsaWduOiBsZWZ0 BjE0FHU8fMTnfK3ujJmw yolwoD2zVpw+QmlydGgg QJE6QJl2R4SuNog9GDLy vZkiWN3ghSGcULqq Wu2zyOptkZipIJ4pCZDt uvhjr127WoChj9ilPHGo mSNlQMykHJW1V61rk4V7 HNPcDAXbDTM3vRC2 gW6qaCbxlvsizLOqeXxb mnCnpNimVEbmGZejL952 FPOvdCbnNyHoKRj1K1Tu Xxp2OWWqzDrhVY7x qUHbUGqfPh6zzQrslBog GU4oGNZmaixry686DpQx s7qdHNTkzHQlTCmwLKG4 V61ow8X6SLBfBZNa QPR1wBO2wC2xaXrlbfxo bGVmdDsgdmVydGljYWwt GNyzF108QYEvkPywDoBd mAa9K7VePls1UZCn iLlpVP0wfTEcHSicFt9w yBjdmXvwQM3aNKJfextm s593LiQgw9coWMXywNPg WWcuYIQ1O67lh5C4 OFGiRAItZOG2lRA8mQ9n bGlnbjogbGVmdDsgdmVy aYneIZpiLBvjX470GADi cDsnPlBhdGllbnQg REfaXGm5N0JqAcchyRA+ EV15HZHgRO46sULfbNLm a2nzlZy7VdXhPHXqUTR5 fPqkWYonc6GmTQGx V78gnLXpr7M6FJYkcFrn hDKdGyBkpBG4oT1rUTkx noswp9kapwzmPgyki9gr gg93jE01D68jXXvh ZHRoPSIzMCUiIHZhbGln iw2zyH8cTf6+PGNvbCB3 qQI7nB4eXQTcTsM0DNfd A927ZeElwTMmVtcx g1ttb5jsmPp0MuA5AECf uvGkzCxwXKL3u7EvGf84 H67mGOlvNEMhSBObXEJl CIYhrMehuu3vpM9y Ii8+MTLukNC9mIK5nB5m GdOpLhK0UEsqV498KeYb dNDyTqatJ72nU4RakAD+ DYWqFcx5RHYsvMgk DX7ykXTvEAsmSq4hNLF3 KnOpFfYcRJboQ5HkYJLa groqpvwlmYB9LVUgBSIa iE00Sx0cbQmcWMMt rSWAcI4gohzxf9zidaqk EsMbOHVdJKb6HKb7SVNs cEebJxMbORM7UdN2OMK8 oQRvxL0eeFlpqwoy dW5oY5YkGEJrvnwaNv29 aH9wFzZfXdJ9RBwlWms+ C0kEBwODUAcnP4yJPFRY EFfEEM4FERjxgAT+ VQOeBUL1tEpmCRihPLTe mA3oWKEbA8k9OyKiTjV2 QVouW4GbASGabmhmPr34 mZ5fQdDyOoE0ZUpw U5KcujZ2IETzhETqVUhp IAF8Z07co9Y3MKCeEEHt XPD2sJK3cD0zwGeoefad bGVmdDsgdmVydGlj IXxwASntY499ZLXmdBpq IhT0SfStRwBrIFU1C5Jo Keo8OELvdPgyDO6erEUa GHjsSs6ttSbbjRrj VF0zLCYlpiurIPIdsU6t JWIrfJYgfBeuKC6sWOPo ocrlx594XcLhCCG6HQUr mNUtF1MosR0wBmMw YQVtWYSpV2FttKAvREaa O381BHbdEnP4HUIhbrFo J3TvKKPrdOrzIsU6w6M1 Bg2kDAVFDMZqhiis dGQ+YJKwKBI8qTtaKRzk ZRRcvL7wYCRxQ5v8ZaUm OkX0NAxqY0FrUIZbresa Xx38iW9uJnNwWuF8 UDyuE1WnlpS4ITFumYJn OPpaFVY8H43ue8P1NRSv SNWwNRH6eES8bS1juJdc bjogbGVmdDsgdmVy bQooVWldZMgfY173WODd cDsnPkZFTUFMRTwvdGQ+ ZNPxVHP2hOooDFlgCZXa wB4xMTRaQ5w5PnBx HiB9OYmrG9WfGKBheqov Xk49yZ8hJvQpEkC5LCtx S7FtsyY9PCNyoHIkNTsm YHS9R39ep0A1JRGq OZQjFWU7nNF1oD7doXko bjogbGVmdDsgdmVydGlj HCejUMzlJ668OHPncJem EkFjVHZqYE5vyZwx dGQ+UT62up21A2UrPkuh Rjx5ACDfIJG2eNY9rT2n STWiUSvtg0M8pHH6A1Lw beUpnz4qx5iuNONe DEhyT48ngMAro0Q9TQIl sED6VEVktGzbSzUjiM90 Oyc+HWMiuFxah3QhFvez p0gdx2ozwNf5SmSo YEKjsiGimIatNKQ2g0Qa Vw81Y85eSJwrUEGnBBPf DRObNYPjsOqugw6uiN9l Ii8+GAQtaXI0wGI3 qN9vHaMtWnR4HVveQ482 OySbrXJqIbbps7cou2lg nMn6EeBrPRJjbaEcqKtm AVE2t6QsTq74X3Es zBqog1HeQrc7ju06dKDk j9D0sEJ8A6PbVCUptlid kOMfbMucLA5fKRQsuauz XKSluI6mYPMaZ6o2 YyJrNnN7WUhpD0NonfX2 HYQruTRaKUJnuBJBcN3i sbmrg1ehyimgMrYnWUOl CTy5OXn5JGLruDjs BfFvQRK8IsP3LWN1aWWs zL2yeJzgupoaeN8vVoj+ FBf6m4olmERcNJ9jaHQ3 TX97SZ46kCJux1J1 gYI4O8XyQQWwlkslraaw gCI0VCIiUYPneV55Rj1q lYcpKs0iBVSbOPI3KCMw qYLvX5OphG0dRkCp CMMxCCCoO3RusDLcDJyp M093OIuoHeE9IILsptTy J1IyGCTjdDxcOvN0p9W3 Nk1AJZ52JR48VA35 hARui3K7rQG2X1LkKWQl pqxobeobvCI1INHbERUh oC82Td3ftYszCp1dNDOv REM6EAUsfYEcV8Zb fL6yLvYaWCStNWNhW8Jm mSNjQJqtR508DKkdBxZ0 KSFygyDvN0FwEKQcoLou QfM4x7B0Mu2YIf22 NU90XS95aHYwd9C8qHR6 T5UeCSXzrddsfhyagGJ4 NEIsJIPylU28Zr2uuDzr Ca9sHOGcFXS8AMFw jBOsH1SbsY3kAfVnETEl PAHtB3VrnKUeDZjcH889 SThrXdP4XYCqnwFkT1Vj YQRlqZawZtU8l8K1 Ad4BAKovctd6I5QsIgfc dHI+LL01XLCnSV74qFJp hTFam7ewsOm6LrXqMPXh XQU5qIqdBDvdl3Cd ZXI (more content not included)... Normal [facility] ED Clinical Summaryon 2022 ED Clinical Summary [facility] Emergency Department [address] [place] [address] ED Clinical Summary PERSON INFORMATION Name: LIA DESAI Age: 22 Years Sex: FEMALE : 2000 MRN: Acct#: Visit Reason: Hip pain; LEFT HIP PAIN Arrival: 11/15/2022 16:28:10 Discharge: 11/15/2022 17:02:00 LOS: 000 00:34 Check In: 11/15/2022 16:28:10 Checkout:11/15/2022 17:02:00 Address: 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 11/15/2022 16:32:34 VITALS INFORMATION Vital Sign [...] verbalizes understanding of instructions given Comment: Normal [facility] ED Patient Summaryon 023 ED Patient Summary [facility] - Emergency Department [address] [place] [address] PATIENT DISCHARGE INSTRUCTIONS Patient Information Name: LIA DESAI Age: 22 Years Date of : 2000 Reason For Visit: Hip pain; LEFT HIP PAIN Arrival Time: 11/15/2022 16:28:10 Primary Care Physician: Provider, None Attending Physician: Bennie Yarbrough DO Comment: Visit Diagnosis: Diagnoses This Visit Hip pain (17779240) Sciatica of left side (M54.32) The Pharmacy at [facility] is open Saturday through Saturday from [...] alcohol and/or drug addiction problems; contact the [facility] 29/10 Crisis Hotline -Text [id number] lf [phone]. If you received any narcotics, sedation, or [...] and treatment you received today in the [facility] Emergency Department were for an urgent problem and are not intended as complete care. It is important for you to follow up with a doctor, nurse practitioner, or physician?s pediatric medical assistant for ongoing care. If your symptoms [...] so we can reach you if necessary. [facility] has provided you with a complete list of medications post discharge. Please inform your hammer smith/provider of your visit and for further instruction on these medications. Any specific questions regarding your chronic medications and dosages should be discussed with your primary care physician(s) and/or pharmacist. Medications That Were Updated - Follow Below Instructions [facility], [address], [place] [id number], [phone] Updated: predniSONE (predniSONE 20 mg oral tablet) [...] Stop right away (more content not included)... [facility] Progress Note - Nurseon 11-06 [...] low back pain. Patient was seen at [facility] on Saturday and was diagnosed with sciatica. Patient is to see her PCP next Saturday. Patient was prescribed Flexeril and Naproxen. [Electronically Signed on: 11/15/2022 16:49 EDT] Zara July DANIELLE [Verified on: 11/15/2022 16:49 EDT] Zara July DANIELLE [facility] Coding Summaryon 08-28-2022 Coding Summary HTMLBase 64 LlvfeckfRAq4zVc+PGhl YWQ+OE1ZTHFmF38mxNGi jB4wR1WMFBmNTbpmQBTR LLmBXyXnakKlAQ6knWYn ZXJu IC8+WN2gFXVjJegcnSFa j4E6sAP8L75bhp6jSCza gFZ0YGDaEmLzordnt6kb uXw6KQrySsddSpBy GHLgeB52QVA1fR54Kx56 rRZtvRPmc1qanAn8IwPy PRHpCBI6rDwtHEvkm6Bu JOYmM18axOCwn2G5 IGNvbGxhcHNlOyBlbXB0 zY9tZIjgbtdzk8xiwdkh Vah8rq04oZPdk3X1qEV7 V5TxuwS6FZBixMZo NkoebAKPfQ2qesicw0zq swfvVhZwZSObAWp9COm2 JDZxyKkdMdSbSG94AEK3 MQFlmpKpD7RoMMDz sOdmSyZ4l0G5Hp4BO5HC McodT3SQPVLBDQeezJA+ FO65sh52I3NmKntaRoy3 CIFjTPF3pBT0pP3n RWZsEApsz2T2lKN5K6Hm ntAivj8gw9huGGRjYVvd G78fyOLha5L5VXQipCV8 HAGbtWxnNjEmoK77 Oyc+QDCitKrxp2XcVhwh r5tmf7dcfSy8BmxbBHOi aeZksBihKYH4j2VoWu3f SOWzsWD8mRP4kB2z NgZxJhE2UYztH379AlYo bZLtQvatA92fX6DqoZB+ EEJjNca3DZArxXqaIN6x D9PeIZZunghfjXEd mNulVE2fPTMcmlvmPNSl lL8wMCPhQ9a6ZwLgHnJ9 CHvgU1SqJICtwhgsGr85 kI7jBjTmCbS8FEdq P2UnkxQ5RUXvhHPvNSau TUJ1N81xw4T4ACMpBDHy MEM1gMJ2nF4zuYrzsnjn bGVmdDsgdmVydGlj FXctDMpzD516HXXuhVof PkNvZGluZyBEYXRlOiAg MDUvMjMvMjAyMzwvdGQ+ WTNtOCW5tWuqBJVy fWQaRAzfNb3pnHxwiWmw XV6vXDEepkrqZQOizG4u JZBkiASutGupAI4wXTIu cwklq475CwOyTMQ5 SCNyjPWoA6QceG0iPoPx RJFwVPBrE2VjtXOrOXmb P659BUrnPuT1CNIduvPa Y2PuQGGszOttBlJ1 e7L4Gl6Hu5FthgamN3Vz lGKzBtSxLpzsQPx7I7Fy PjwvdHI+GX79SEYsYK31 DFv8MRV0tOkuRDcr UWHyD8XplC0wCwRhUKQx ZGRkOyc+PHRhYmxlIHdp ZHRoPScxMDAlJyBzdHls XB4vQg8nVMMaKBXi lKykaXZtRqNkd1ufTKUk FQrzWO1uxChfM1FhcWF9 AOFid6u4Uk16H40pU4Pm dXA+HYJcfKQ0eTS5 pO9sApTgKuO2BYvsN583 NyZqsGKtNkyvz1jow1xv zMk6TgC2VNJofmXavLfr LNG9j7VyYo86H82b IHdpZHRoPSIxNSUiIHZh cKkbdl8njF8uZz3+PGNv iPA0xKB1rI6mWvYgWgW5 ONweB210KrStsAYu Dyiak8ect1jxaSl8GtBv XDNsdbZyyBdwGWB9h8Vd Hv57F6RypNcqu0MhYge7 zd63hKEag1P4gMT5 Z1WrGTGdvyqokRYyiSdr RM4bXOBqxrhwAWOfpN9l URSxE8r8StKyUfK5EAvc M7QufwY9MGEynJGg ZTVenTWHnP5umsfqn6le kwyfYvQdKPBuEFb7PKc9 MRAjlUtxHaCwGVN8QlI0 HUA9wPPhwU6nzZih ohpqaB0bEbl+RTS8bAYj wSDPCM7wByctzQK+PHRk NQP8sJaxWMhjJIFqtD0k SBMzL4v1WcQzWnT5 QUyaY3WcnuF1SHCogPCa FZDjeARZdE6wjqsuf6sw divuXmJgFFVnSEq1YUu0 LWFsaWduOiBsZWZ0 IyI6CGC1iXEpoO7axZbm nnsixK3iHwk+QmlydGgg ZTC2TTu5D4PeJck1USIs kPzwVS6daOYdJHac Df3qqEaqgSvuHJ2hPTKl pzkvs702IcCfl5upRGJo yHVxKPpzDSW8S13ph0Z7 JSPqGGKnBTY8fVX5 dA0twZyrnegzwADnhNrq saRhjFmnNRfbDQudH984 MOMbcQyzAeCxXMe7G2Sz Twk4YKGowQmaAN6i lJOhAQtbKz1ybHmabGla RV3tTFSgrcbhc488TxIc m2raLKZklTAvEFfdQTI1 M73on7E4ISWrSYLg PKY0vZW2lP3ktXzionth bGVmdDsgdmVydGljYWwt EXujG899ZDJhuGtpZcQo mUx5V6IiUhs1QOKv mYkaJJ7ltBDhQTkjSl6q cAejrGwcQJ1cZBObadxd b699OxHkp9vbUGRbcUUm KLugHTT4X00pd0I7 LHRpWOMnWAN6uAX3pA2o bGlnbjogbGVmdDsgdmVy bItvIPudLMytO606PTYw cDsnPlBhdGllbnQg FDbtCEo3A2JbKpqxpEC+ EC54BQDwJN56vNOfxZHz a6hkbNs2JgMqLTSiPWE1 wVjpWTfxo0RvHZBq W21pgAMrl2P7SZYkeBag iJMcPlWhlYO3qZ1vMFqr akgqj7vsxsogBmtsi3rt tw76rN65A66qQJft ZHRoPSIzMCUiIHZhbGln ty7ktT3nDw1+PGNvbCB3 gQZ3gE9oVWFpBdP7OAly W885QkHdbFAhRgtm h4nat7skhNc1IxJ8TPNc hrJxhOcsLGV6o9VnPc79 U27mAQabPKCjNVGuVJPm HAKeoRffeh9qfB3y Ii8+UIJlbYV0xEK6xR4m NxBdNrP7AVtuF290UgFh lGEvPzrfE06rJ8QszRW+ PPNuCtm1SOOiaSqd IB5xtCDjLUrdDc3kLJB8 EjLiMzHfZSwyD5TvKBCi jmwrcnbuwJR3BUVgCQKy xJ61Qp7qsYoaHYGv cJFAlQ0qgebpj0uagumr DwSkTFUcAFh8CPi5TCZr sYxtXmOeTVI6WwP6SNA1 gUVkzR3lrQwtgxsi dR9xD3CqVFOdyzynMc23 nO2fJvVmIlH9PNjoMpg+ V3tWOfRQGEbhD4ePKBUL TYwKDW9OHMsceYI+ CGBeVDA8rLdsWEuuQBGn yH7lGICiF6s3SpHbFqM7 DTnqL0EtKEAdqyoyKq32 vJ6cLpXzYwW5AWjp S0DwidK7ELJljIGkCHbl KZV2X12hg9R9XDQiDKJl ECG7zPF1lN9lvFsixlle bGVmdDsgdmVydGlj VYviWRbsI133RXUfaWqh VkB4QlQxUuIvLQT4N8Hz Jym2VKTkpGgoIW1wxMDr JAlmMb7gwMapsWxv QE7jRWIjfzxnRFWeyV5y SRPrqOKgiSvvVP4eGMKh jeuhh948DsWnPZJ5ZEJp iMYjK6ZnrX9eZpBx TKXgKZCzC0KrsQOtSNtl N140VGjaSdQ3PWSfxmMe I6JbUCZtbTidIpW5g7O9 Ex4hYUZXNDCvtvey dGQ+UUHlHTT2tZuxEYel OSRfqP3kAMYxD8t8FlVd WhT0JFtxY0JyYCKqpijx Ck07gM1iJjAlZbQ5 FSrnK5LsbuP2TQBfzQRo GHdkMIR0L85mu0X8FYEc FONfLGW5jGO8tK2ocAzw bjogbGVmdDsgdmVy tHhfEUycEDejQ872TRXn cDsnPkZFTUFMRTwvdGQ+ FOJpEPP9bLfaLKtaOGIs dQ8oODQsV7m6RfXo TgP5HOlhW0KxUHEdatqo Yd70qT1qMoQnSaZ1SEcb G9LfmvL8BCEirBIkGSwh VRR1Q83my8E3VVFv RTOlSBM7dGW6uL0lwYtl bjogbGVmdDsgdmVydGlj RKrmFLmqL198ELLrxKru Jc1TUR42KC83U6Sv PjwvdGFibGU+PHRhYmxl IHdpZHRoPScxMDAlJyBz kGveZM5bDx8nFIBlUYCz gXsleGRwRzPlt1xy PQEiFGboIO0fiVdnZ2Ke vAK3UXGte8s0Wv42B70p Y7GazKA+GYEflXG9vSO2 xY3dDrUiJmF9RXyn K213KrAfjOYiEzrca6jl x1jucXl1OpGoJZMkeyZv mGoyFBE7i1DpEj09Y36m IHdpZHRoPSIyMCUi LWBxzLsbfy3ryE5aDz1+ TFPkwLC0eTA0nD9bWsAi DoI7QPxnZ476FtScmUIg YofnY19iJ2XjfKL+ XOHlUgi9LPPevUcqTK1s xUWtCDvqNd5xXUK8AuAv HlYxUJlwB5KlUPMnhtep fzcqmQU8YAZeVKPe uL35As4osCyuSj5bHXUc AIJ9FGNusJBtK9NnfW3d OhSoFNVoBMYxF4GeqVZu WPgiO719XAykRsN9 VOAeelNvG7CjQNAeqFma UoY4s1K5Wj2BvZwtpIMf GX1yBdBjYFy5I5QsJaw1 HEJnwOfzMR4ciSZw JKsbHb3vqTtyjLsvAO0o EZFcllwmp879IlUzb7pf XYIhwFLbZWcjNWC7I66u e4M1WOIiGMJjFCW3 wKT9tO5cnPmygwpfeHQp dDsgdmVydGljYWwtYWxp P084GSHtzYnhRlBAKht8 F2XeHmr3YSMacJzc OK9pfSVmJBmpSq0pbIha tTwqHD2uAAMqpwjpv955 YnPxm1htTGQywOQiMLgn CGM8X03yp4K5EAZq NZBcQXG1zJJ5mO4ubIqv bjogbGVmdDsgdmVydGlj JOndQDhnP254VJTxxNjk Am4NLsx0C7LfXut6 RRUkfLzwSJ7goMSsGKmt Km5pbWftvQicUO1xOQCr mtqws097YbMbj7tgMAIo lUSsIXsmOUZ5N07h x1P4HPHjCYPmDLQ6eBM2 pU0luIexyqnugEMrtPqr rjFewZtwDNswAEisE262 IHRvcDsnPlBheWVy OjwvdGQ+WU61yj06Q6Dm RrziOcq5NZTlMRW8gKN7 wX2iWMYtRImea9S2iKI6 Q5TdkkBhlu0bc7sv YXB (more content not included)... Normal [facility] Physical Therapy Noteon 08-07 Physical Therapy Note [id number] [id number] [facility] hCG Quantitativeon hCG Quantitative 3.0 mIU/mL High 0.0-0.6 [facility] Comment on above: Result Comment: Post -Menopausal Reference Range is: 0.1-11.6 mIU/mL Performed By: #### [id number] ####[facility] ([facility])[address] [place] [address] Coding Summaryon 08-16-2022 Coding Summary HTMLBase 64 IcpxciwtZQh5oNx+PGhl YWQ+NW6WZTMyS97rvHXv rS2EW7iXYZ0NIQPPNYQU YC2ZCT7bhTO1IDgeP8Na biAv BugmrCRgJT84ASa0SEU3 oEbnUKsjsW4vuWJdT6x0 CsIkDJ76wQ59HOmnHVTv LbT2DsWachvgpGTp T4qeXpOprQLzGmu+PHRh YmxlIHdpZHRoPScxMDAl EkGhaTcaFA0qQy7mSMAn LWNvbGxhcHNlOiBj e6bxIYNxYNciPA1tsBgv I3NshAN0RFPgy6y1Xh77 dHI+PUZlNFQ0oHplZOnb d132XmNxk1msXGV1 dMUzUUzsSUX4E23ia6F7 CTEdODZtECN9eWZ9kM8x fLwhjiggI9AxwIJuGqA7 KLQ1sACnbM3tuDzh eaxtdB1xKkl+X75XLT8W GPIWBO3XPkq0Z7CmJlld dHI+II07EPUfAD32bBPq sQBmk5zwwDe0NqRb LVBpOZT4gTkaJUhuj1Vf QCMeE22axHFcj3O4OZFh qHdumSQzOaEamVH7sH4o PWgwtqqny8owtpyl Pmhxu5bgwk09eZ85X17f EVbhCVHzETO6USIhBPHb aXhjet9xmF8bTj9+IDxj g7bob9warCp1TmYw EORlxeVxcYtfYMW1r8Xb Ij63E8HhaTkeq0FiFba6 el13fVHcg3B7nCV2CSsl BYIveF6uRTkvPmO6 OTMeRcUapK57qNWjMVwz Yw2ltAlmyImvUQ2nYBSq kqtwGRCqrK0hLOLarIHq aGdeDH4gSFHyjduk q319BbSlCZU6GHFofKNk L3YokY2zWeBaFFHfKYIz T2PldHWeDLxdT826SQyx RdK7WBAkquNiO9Oh BNBgmWvyJvQ9w7Z5Jd8W h5OkzvanAGJ8GRuzIQL2 JnRnOeSgLiB7W2WqRdo8 OIKidDpnFG8yC0Qy JFSsuhuphssgsQX6LNPu JEZiiM61nXCmRQgwCg9j c9U3x300IFElGYRndE10 Jb9bnUkgTLRidWMD lV2sapdhc6gqykvtIyIg JAFuJDo1JZm6IJAfzCjs CqUlNHG0OzC8MXW0kYJp aZ6ioZinsymfaN6b Oyc+O06mcR9zCNJ3WLG5 yqkdVYIxqqNjMA58JL82 T7ToBzhpyWFkqTR+PGRp eaPsfIybZU2gWqYm o5dnp7MpFUpdS8UzKRAv CQulCyf0BPYvLVC7lEU2 bM7jGZJjIYcgm6P5aYP6 Y0NbjiZqhs6fd8dq NYUrERdpR13isOAxk7B0 GVSpoYO4NILehUckLgZc sG67Agc+EWBtlTuhi7Js Ycnkl7sei4yloCs1 IjMwJSIgdmFsaWduPSJ0 x5BrRr75H87fLAkxMJUj CNIoDMHwMKXzbMeewg4d qM7xTk1+PGNvbCB3 bFY4gL5bABEyUjY8ZYsi X287IcEpyTRlIrnlh6ty t4nchCh8XoExVMTpdxXj kEykDRT9u0NoDd47 X04aSAutAJRhEXJmEJQg CQZgrDdkwn4heR1uXi7+ TE0of0hvih73rD27gYP+ AIGkGMK9xAtjRCay LZNouF2wHSipCzQ1TUBe WyKdxI21xJCnYEbzCw7t vCcrlDxvNX9gMCThqijc l110NuTeo8elQNXj xPRrTKjiKBB6V85iu7T5 FMHaPCHuDVD9pSS1nB2q bGlnbjogbGVmdDsgdmVy yNkfDZxzPMwqL439 IHRvcDsnPlBhdGllbnQg ZrRnBDn2L5YlYjy0VINo fTypMN4woLTpPXyjNy7y eWfniHrwVY3yAVGz kkgzs490LaXmt3pmBFXc kJRkDVuaVNR4J29fj8R2 TJMaUFXmQDU1hCT3aZ7e bGlnbjogbGVmdDsg ngEgwMkgHVntORarU928 IHRvcDsnPkJpcnRoIERh pSA9OA97EP36nRSpg1K7 gXN4G2SxVQYwemwj iqonwTY7ZGPyXNWnjJ04 Fz3urXdkUf3lOGKqCUF9 KVLrsGCgG3TlcH3dIwJp BSRoSMAnW8IsdARu GElwT495FXfkXtZ4OZWi qcKnI4UnRUBwhTphHmS9 n6U5Op0NL8Y0RB16UC81 bMJkf0P1vIF8H7Mo OQZvhnfoofbzqQP3NQMh NIZvwG78Mq5dxUeuOe1e DZSxCTB2CXDejXAaY0Tv mF2lXdBjEWSbSYHt C7WppPNaWDfjF003UObp UuJ4ATKhgkFeK8ScBJXq dKneZvQ4w9M2Pj7YWKp3 SO23EI82mXHjh1N7 xYV0R8CrJSYuxbbbgogc sQW9GSCxWQJmqO24Ip6v qFlkXl5cISKrMIH6WLBi dCNcH7PjwY6iNoDc VUMzBLToE9WgbVEnXOtj G131HZtgNbE7PSMwbgPw E1ZlVIHegYavVyX1r6R4 Zx9BRZTxPJ75BDS6 gPM3EK08LL62N4QlTpip dGFibGU+PHRhYmxlIHdp ZHRoPScxMDAlJyBzdHls AO8hTa6uFSKpOBVw pAswyZXxRkIgh1wnNZLs LLjsOK5uhYsnS0KdiFN2 FVYye2w1Ze40F42nQ7Yt dXA+GUOyvZU1rAZ5 aJ7ySxXcEyY6YUpjC600 EqSmhYAnOxjnj0fpn4gj dDu9FdR6LXTxanMhkVmh KVM9a7IeCw11K04y IHdpZHRoPSIxNSUiIHZh jDycob9nkA7zVm9+PGNv tHU5oFK7vM6lDrOvCiN3 LBdoU586QrUxbQTc Jdvuc3mna2rkzTg9WdLr FLImqmBseCzjPFZ4m4Cw Qv86N4GsrBvix3RjYwn0 dn06yIWkk4U3fCN4 E2TuTQGuwfnyyFPijXfj HV1nAYZyjtpvLMYnrK2p RFGzG9d5JkXeZkO7NShz Y3GvqqB9QDZxqXWw ICvfPDI7S08rb7B0CXZa KOXnYUG6pNH1aY0wxTkf bjogbGVmdDsgdmVydGlj ZQxcZAdlP137MIEn oOutIOYhcC5sSLWtqMRk kKfhUU1uAOZtftvxFkkF TEJFUlQsIFNIRUxCWSBM PYQWDxS0Y8UvCef6 AFTydUmxNG2gaGEeERml Tl6amDwjqUylFH4yVQSt rhuzNHAmiD0nPTGypTVv hLzxRD6yJUAggztx h485WfIpFUX5YAKkcZGr R4XqoM5bYvYpKKCsOVZm T0AgqIBxYTpjX990HKll GtY3BPIpgrOaL6Oi PGNbiHdmNgV9p2Q8Dx7k Ur1wQj5gBGCpEK98UD51 wECyg3D0uYS1J6GiOMPe vqjdmugatIH1HKSq IZFqwF58tXCnDTcuWo7r o1Z0x038SHOtHSMetY71 Ku4enRboOHRkoNHMqM2n cjutb7wcglzpAaBr ZBElZAz3HFg0MEPxvClw ZaJyCZC4GfB8GVS5wABm qC6atMhquctfnO1oVwz+ VrBhMCQvkkF3G4Ef Sha5ULHrlTssWC6ddUCo GHydYb0fgJiyuQtrSH1i RRVeqrgyYVCmtW6tRYWu fBCbiSraRA4vBEYa vippf183SeAmLKJ0FLGi mSDsV4CbjG8rAjNaPCAa XPNvP9MwkWAeVVurW632 ZJmpEzB5PJDxsqFd X5JoFOQtjPyfLzW8p9R4 Tt4ZIA0AFRI4X3RjNca1 OUYniThjNP6tbABqBJeg Yn3wkJrseZglUK3r GJQhrkaxAYWblN0bBRVy jSBgrKdvGH0eXJAghdam t842KlWsHVR8JIDtxYAa G7GwmB1aPhKuZYFd DIKbE7RqpYTxERgaC901 YZlnDoP1FNBjqpBmH2Hj YAUyxZrsKrR6a4Z2Ho6D yLSxD8MnL7j1Q9Zz PjwvdHI+JG55BGPmMD21 zOAgdEFbo9xpxRo2TtBk KTSgKXG2iLtpTXkuq2Ni RZAoO84auKCyz2Z4 IGNvbGxhcHNlOyBlbXB0 eQ3cLLdtwjjgd2etqxca Uukkm4lpap29jP50K13m IHdpZHRoPSIzMCUi XGVxlFjkbr2lqB1wGp7+ IMHiiOD0mKI5mM3pRkIm BuZ2KCefP229GrAzaYSt Ombsv5tkb2mgtMo8 IjIwJSIgdmFsaWduPSJ0 o7QhZu20I89dDEfiWVBe IAKwAPNhOSNlhBkylk8s hL0eKm8+MN2az9ou mz11uK81iFB+PHRkIHN0 jGirGUkpWDJknV9eDGdm OtV3LACyBlIiuP76dREl AGwrUs9hhQfrgMyc ID6sGXAlsmirr600HzYv x3wxTWRljYZwMRtuWZX1 H26qb6A9TVEoQAUdCIU6 wAW6kE1ffHoiynpm bGVmdDsgdmVydGljYWwt FHrgG949HXIeaUntTlCz yCSlM9gmvpQXLT7dGrpk dGQ+QJQaQSI1tEro KPpnIGJhhC4iXYNfT9c2 UrDbCkP6IUrjT6XyzqX7 KDYkkYHyVJNmdHNWyD7g hykqq2znwzziKlOk GXZeDCw7PPd1FDXfcXfh WsZaOQN8XvX4CEE9mVXm uP6vhAwgsgfwbW2pVpm+ RklOOjwvdGQ+PHRk INA1xApdZWvzTIQjcI8r LIPsY5z2AwZvUtN3BUff M5CxldI9XQNmyNUnRFPt sUORxW0olnifv8tv imqmRkCnTTCdGTp6ZUo2 RJMbcZxvYuEiQNF9CfV4 ASL2fJRjjC0qqNdhtqci vV7lLdw+TVJOOjwv dGQ+NLIfBVB8sQmxOYgf ITBsrK5bBZDfQ1j8LgYb QyB9TLwrI0LtebK5RNFr cIWlXFFafUQAeS3k nkzje8wufakbHuCiEGKz SAu9FPd5ONBstLprZpAe SJE7ZlD4PWL0zZScbF1g uZkwaypzcJ0fImy+ JND4FDR8ER58BM66T5Jo PjwvdGFibGU+PHRhYmxl IHdpZHRoPScxMDAlJyBz vEraDH7aCz0uKRGd LWN (more content not included)... Normal [facility] .Auto Diff - Auto [place] % 7 % Normal 12 [facility] Comment on above: Performed By: #### 1 [id number], [id number] ####[facility] (DEFAULT)[address] [place] [id number] Baso Abs# 0.1 x10 Normal 0.0-0.2 [facility] Comment on above: Performed By: #### 1 [id number], [id number] ####[facility] (DEFAULT)[address] [place] [address] 61254 Basophils/100 WBC (Bld) 0.8 % Normal 0.2-2.0 [facility] Comment on above: Performed By: #### 1 [id number], [id number], [id number], [id number] ####[facility] (DEFAULT)[address] [place] [address] 14706 Eos Abs# 0.0 x10 Normal 0.0-0.4 [facility] Comment on above: Performed By: #### 1 [id number], [id number], [id number], [id number], [id number] ####[facility] (DEFAULT)[address] [place] [address] 15933 Eosinophils/100 WBC (Bld) 0.4 % Low 0.9-4.0 [facility] Comment on above: Performed By: #### 1 [id number], [id number], [id number], [id number], [id number] ####[facility] (DEFAULT)[address] [place] [address] 99313 Lymph Abs# 3.0 x10 High 1.3-2.9 [facility] Comment on above: Performed By: #### 1 [id number], [id number], [id number], [id number], [id number] ####[facility] (DEFAULT)[address] [place] [address] Lymphocytes/100 WBC (Bld) 25 % Normal 14-48 [facility] Comment on above: Performed By: #### 1 [id number], [id number], [id number], [id number], [id number] ####[facility] (DEFAULT)[address] [place] [address] [place] Abs# 0.9 x10 High 0.0-0.8 [facility] Comment on above: Performed By: #### 1 [id number], [id number], [id number], [id number], [id number] ####[facility] (DEFAULT)[address] [place] [address] Neut Abs# 8.1 x10 Normal 1.5-9.2 [facility] Comment on above: Performed By: #### 1 [id number], [id number], [id number], [id number], [id number] ####[facility] (DEFAULT)[address] [place] [address] 53017 Neutrophils/100 WBC (Bld) 66 % Normal 44-88 [facility] Comment on above: Performed By: #### 1 [id number], [id number], [id number], [id number], [id number] ####[facility] (DEFAULT)[address] [place] [address] 83149 BMP Standardon 08-11-2022 eGFR Non AA >60 Invalid Interpretation Code [facility] Comment on above: Performed By: #### 1 [id number], [id number], [id number], [id number], [id number] ####[facility] (DEFAULT)[address] [place] [address] eGFR AA >60 Invalid Interpretation Code [facility] Comment on above: Performed By: #### 1 [id number], [id number], [id number], [id number], [id number] ####[facility] (DEFAULT)[address] [place] [address] 90291 Anion gap [Moles/Vol] 18.5 mmol/L Normal 5.0-19.0 [facility] Comment on above: Performed By: #### 1 [id number], [id number], [id number], 6996781, [id number] ####[facility] (DEFAULT)[address] [place] [address] 61045 Calcium [Mass/Vol] 8.7 mg/dL Low 8.9-10.3 [facility] Comment on above: Performed By: #### 1 [id number], [id number], 5356471, 5450234, [id number] ####[facility] (DEFAULT)[address] [place] [address] 99388 Chloride [Moles/Vol] 100 mmol/L Low 101-111 [facility] Comment on above: Performed By: #### 1 [id number], [id number], 0209095, 3363336, [id number] ####[facility] (DEFAULT)[address] [place] [address] 89311 CO2 [Moles/Vol] 24 mmol/L Normal 21-32 [facility] Comment on above: Performed By: #### 1 [id number], [id number], 4245375, 2973609, 43244115 ####[facility] (DEFAULT)[address] [place] [address] 46613 Creatinine [Mass/Vol] 0.57 mg/dL Low 0.60-1.30 [facility] Comment on above: Performed By: #### 1 [id number], [id number], 1451767, 2491768, [id number] ####[facility] (DEFAULT)[address] [place] [address] 59094 Glucose [Mass/Vol] 98.0 mg/dL Normal 74.0-118.0 [facility] Comment on above: Performed By: #### 1 [id number], [id number], 2229417, 0589035, 43875354 ####[facility] (DEFAULT)[address] [place] [address] 70267 Osmolality 274 mOsm/L Invalid Interpretation Code [facility] Comment on above: Performed By: #### 1 [id number], [id number], 4354709, 4366789, [id number] ####[facility] (DEFAULT)[address] [place] [address] 35438 Potassium [Moles/Vol] 4.5 mmol/L Normal 3.6-5.1 [facility] Comment on above: Performed By: #### 1 [id number], [id number], 9372700, 5350866, 77900600 ####[facility] (DEFAULT)[address] [place] [address] 78060 Sodium [Moles/Vol] 138.0 mmol/L Normal 136.0-144.0 [facility] Comment on above: Performed By: #### 1 [id number], [id number], 9783590, 4039993, [id number] ####[facility] (DEFAULT)[address] [place] [address] 00221 Urea nitrogen [Mass/Vol] 9 mg/dL Normal 8-26 [facility] Comment on above: Performed By: #### 1 [id number], [id number], 9584443, 5788323, 08888813 ####[facility] (DEFAULT)[address] [place] [address] 82121 Urea nitrogen/Creatinine [Mass ratio] 15.7 mg/mg Normal 4.6-16.2 [facility] Comment on above: Performed By: #### 1 [id number], [id number], 0935920, 9269048, 31749547 ####[facility] (DEFAULT)[address] [place] [address] 89615 CBC w/ Auto Diffon 3 Erythrocyte distribution width (RBC) [Ratio] 14.1 % Normal 11.5-15.0 [facility] Comment on above: Performed By: #### 1 [id number], [id number], 6354773, 4235758, 41825205 ####[facility] (DEFAULT)[address] [place] [address] Hematocrit (Bld) [Volume fraction] 36.8 % Normal 33.7-40.4 [facility] Comment on above: Performed By: #### 1 [id number], [id number], 2833283, 6664800, 50661772 ####[facility] (DEFAULT)[address] [place] [address] Hemoglobin (Bld) [Mass/Vol] 12.1 g/dL Normal 11.3-15.9 [facility] Comment on above: Performed By: #### 1 [id number], [id number], 2426871, 3809941, 28650642 ####[facility] (DEFAULT)[address] [place] [address] Man Diff? Auto Invalid Interpretation Code [facility] Comment on above: Performed By: #### 1 [id number], [id number], 4193445, 1148200, 17120806 ####[facility] (DEFAULT)[address] [place] [address] MCH (RBC) [Entitic mass] 28 pg Normal 24-34 [facility] Comment on above: Performed By: #### 1 [id number], [id number], 9846712, 1592808, 59134694 ####[facility] (DEFAULT)[address] [place] [address] MCHC (RBC) [Mass/Vol] 33 g/dL Normal 26-37 [facility] Comment on above: Performed By: #### 1 [id number], [id number], 1659554, 2152551, 84212983 ####[facility] (DEFAULT)[address] [place] [address] MCV (RBC) [Entitic vol] 85 fL Normal 81-100 [facility] Comment on above: Performed By: #### 1 [id number], [id number], 8338355, 3808697, 98422487 ####[facility] (DEFAULT)[address] [place] [address] 74535 Platelet 367 x10 Normal 138-427 [facility] Comment on above: Performed By: #### 1 [id number], [id number], 5604952, 0446220, 71860450 ####[facility] (DEFAULT)[address] [place] [address] 70661 Platelet mean volume (Bld) [Entitic vol] 8.1 fL Normal 6.3-10.2 [facility] Comment on above: Performed By: #### 1 [id number], [id number], 8406399, 2230351, 78783796 ####[facility] (DEFAULT)[address] [place] [address] 61090 RBC 4.33 x10 Normal 3.70-5.30 [facility] Comment on above: Performed By: #### 1 [id number], [id number], 1019126, 9259644, 50243233 ####[facility] (DEFAULT)[address] [place] [address] 44917 WBC 12.2 x10 High 3.5-10.5 [facility] Comment on above: Performed By: #### 1 [id number], [id number], 8954725, 8388948, 64926757 ####[facility] (DEFAULT)[address] [place] [address] 42189 ED Clinical Summaryon 2022 ED Clinical Summary [facility] - Emergency Department [address] [place] [address] ED Clinical Summary PERSON INFORMATION Name: LIA DESAI Age: 21 Years Sex: FEMALE : 2000 MRN: Acct#: Visit Reason: Vaginal bleeding - < 20 wks ; 7 WEEKS, VAGINAL BLEEDING Arrival: 08/11/2022 12:41:34 Discharge: 08/11/2022 16:30:00 LOS: 000 03:49 Check In: 08/11/2022 12:41:34 Checkout:08/11/2022 16:30:00 Address: [facility] [address] [place] [id number] PCP: Provider, None PROVIDER INFORMATION Provider Role Assigned Unassigned Adamaris Jaeger PA-C ED PA 08/11/2022 12:44:39 Arabella Romano DRY CELL SEALER Nurse 08/11/2022 12:45:45 VITALS INFORMATION Vital Sign [...] Resolved Disease caused by 2019 novel coronavirus ([id number]): Onset on 11/23/2020 at 20 years. Resolved. Comments: 11/23/2020 CDT 16:07 CDT - SYSTEM Problem added by Rule (IC_COVID19_AUTO_PRO BLEM) following 2019 Novel Coronavirus (CoVID-19), MILY L from Nasopharyngeal Swab collected on 17-AUG-2021 16:44:00 EDT tested positive for COVID-19. no history (190709540): Resolved. Contact dermatitis (34971975): Resolved.. Surgical history: Tonsillectomy (301745175).. Family history: No family history items have [...] quant draw (more content not included)... Normal [facility] ED Note - Provideron 023 ED Note [...] Resolved Disease caused by 2019 novel coronavirus ([id number]): Onset on 11/23/2020 at 20 years. Resolved. Comments: 11/23/2020 CDT 16:07 CDT - SYSTEM Problem added by Rule (IC_COVID19_AUTO_PRO BLEM) following 2019 Novel Coronavirus (CoVID-19), MILY L from Nasopharyngeal Swab collected on 22-NOV-2020 16:44:00 EDT tested positive for COVID-19. no history (580495705): Resolved. Contact dermatitis (45865618): Resolved.. Surgical history: Tonsillectomy (328776325).. Family history: No family history items have [...] % Auto Lymph % 25 % Auto [place] % 7 % Auto Eos % 0.4 % LOW Auto Baso (more content not included)... Normal [facility] ED Note-Nursingon 08-11-2022 ED Note-Nursing Patient walked into the ED with c/o abdominal cramping and bleeding. Patient is 7 weeks . Symptoms started today and cramping is getting worse. Denies taking any medicine for pain. Did have right lower back pain a few days ago. Was 15 weeks in may, had a miscarriage and had to do a D and C. Normal [facility] ED Patient Summaryon 023 ED Patient Summary [facility] - Emergency Department [address] [place] [address] PATIENT DISCHARGE INSTRUCTIONS Patient Information Name: LIA DESAI Age: 21 Years Date of : 2000 Reason For Visit: Vaginal bleeding - < 20 wks ; 7 WEEKS, VAGINAL BLEEDING Arrival Time: 08/11/2022 12:41:34 Primary Care Physician: Provider, None Attending Physician: Andres Duval Comment: Visit Diagnosis: Diagnoses This Visit Miscarriage (O03.9) Vaginal bleeding - < 20 wks ([id number]) The Pharmacy at [facility] is open Saturday through Saturday from [...] alcohol and/or drug addiction problems; contact the [facility] 29/10 Crisis Hotline -Text 4GCEU mh 624686. 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 It is important for you to follow up with a doctor, nurse practitioner, or physician?s pediatric medical assistant for ongoing care. If your symptoms [...] so we can reach you if necessary. [facility] Emergency Department has provided you with a complete list of medications post discharge. Please inform your hammer smith/provider of your visit and for further instruction [...] may ma (more content not included)... Normal [facility] Extra Redon 08-11-2022 Tube Collected Yes Invalid Interpretation Code [facility] Comment on above: Performed By: #### 1 [id number], [id number], 5892549, 6837529, [id number] ####[facility] (DEFAULT)[address] [place] [address] UA Qnzdm4nm 08-11-2022 UA Amorph. Rare [facility] Comment on above: Order Comment: Urina lysis Microscopic order added on by [employer] Expert Rules system. Performed By: #### 1 [id number], [id number] ####[facility] (DEFAULT)[address] [place] [address] UA Bacteria Trace [facility] Comment on above: Order Comment: Urina lysis Microscopic order added on by [employer] Rules system. Performed By: #### 1 [id number], [id number] ####[facility] (DEFAULT)[address] [place] [address] UA Mucous Trace [facility] Comment on above: Order Comment: Urina lysis Microscopic order added on by [employer] Rules system. Performed By: #### 1 [id number], [id number] ####[facility] (DEFAULT)[address] [place] [address] UA RBC 0-2 [facility] Comment on above: Order Comment: Urina lysis Microscopic order added on by [employer] Rules system. Performed By: #### 1 [id number], [id number] ####[facility] (DEFAULT)[address] [place] [address] UA WBC 0-2 [facility] Comment on above: Order Comment: Urina lysis Microscopic order added on by [employer] Rules system. Performed By: #### 1 [id number], [id number] ####[facility] (DEFAULT)[address] [place] [address] UA w Culture if Ind Standard on 08-11-2022 Breakpoint UA [facility] Comment on above: Performed By: #### 1 [id number], [id number] ####[facility] (DEFAULT)[address] [place] [address] Color (U) Yellow [facility] Comment on above: Performed By: #### 1 [id number], [id number] ####[facility] (DEFAULT)[address] [place] [address] Culture? Not Indicated Invalid Interpretation Code [facility] Comment on above: Result Comment: Resu lt created by rule GL_MAGR_ADD_UA_CULT Result created by rule GL_MAGR_ADD_UA_CULT Result created by rule GL_MAGR_ADD_UA_CULT1 Performed By: #### 1 [id number], [id number] ####[facility] (DEFAULT)[address] [place] [address] 79122 Glucose (U) [Mass/Vol] Negative Normal [facility] Comment on above: Performed By: #### 1 [id number], [id number] ####[facility] (DEFAULT)[address] [place] [address] 29805 Ketones Ql (U) Negative Normal [facility] Comment on above: Performed By: #### 1 [id number], [id number] ####[facility] (DEFAULT)[address] [place] [address] 66140 Micro? Indicated Invalid Interpretation Code [facility] Comment on above: Result Comment: Resu lt created by rule GL_MAGR_ADD_UA_MICRO Performed By: #### 1 [id number], [id number] ####[facility] (DEFAULT)[address] [place] [address] 19937 UA Bilirubin Negative Normal [facility] Comment on above: Performed By: #### 1 [id number], [id number] ####[facility] (DEFAULT)[address] [place] [address] 36686 UA Blood MODERATE Abnormal NEGATIVE [facility] Comment on above: Performed By: #### 1 [id number], [id number] ####[facility] (DEFAULT)[address] [place] [address] 83915 UA Clarity CLEAR Normal CLEAR [facility] Comment on above: Performed By: #### 1 [id number], [id number] ####[facility] (DEFAULT)[address] [place] [address] 36853 UA Leuk Est Negative Normal NEGATIVE [facility] Comment on above: Performed By: #### 1 [id number], [id number] ####[facility] (DEFAULT)[address] [place] [address] 51918 UA Nitrite Negative Normal NEGATIVE [facility] Comment on above: Performed By: #### 1 [id number], [id number] ####[facility] (DEFAULT)[address] [place] [address] 80615 UA pH 7.0 Normal 5-8 [facility] Comment on above: Performed By: #### 1 [id number], [id number] ####[facility] (DEFAULT)[address] [place] [address] 77179 UA Protein Negative Normal NEGATIVE [facility] Comment on above: Performed By: #### 1 [id number], [id number] ####[facility] (DEFAULT)[address] [place] [address] 27105 UA Spec Grav <=1.005 Normal 1.001-1.035 [facility] Comment on above: Performed By: #### 1 [id number], [id number] ####[facility] (DEFAULT)[address] [place] [address] 78403 UA Urobilinogen 0.2 mg/dL Normal 0.2-1.0 [facility] Comment on above: Performed By: #### 1 [id number], [id number] ####[facility] (DEFAULT)[address] [place] [address] Urine Source Clean Catch Normal [facility] Comment on above: Performed By: #### 1 [id number], [id number] ####[facility] (DEFAULT)[address] [place] [address] 82561 US 1st Trimesteron 08-11-2022 US 1st Trimester EXAM: US 1st Trimester HISTORY: vaginal bleeding, 7 weeks COMPARISON: 08/08/2022. TECHNIQUE: Ultrasound obstetrical first trimester. FINDINGS: Single intrauterine gestation which has migrated into the lower uterine segment. No cardiac activity is identified. Yolk sac is present. Blasdell-rump length measurement of 1.1 cm yielding estimated [...] Signature): Jori Churchill 08/11/22 4:11 pm Technologist: [facility] US Transvaginalon 08-11-2022 US Transvaginal EXAM: US 1st Trimester HISTORY: vaginal bleeding, 7 weeks COMPARISON: 08/08/2022. TECHNIQUE: Ultrasound obstetrical first trimester. FINDINGS: Single intrauterine gestation which has migrated into the lower uterine segment. No cardiac activity is identified. Yolk sac is present. Blasdell-rump length measurement of 1.1 cm yielding estimated [...] Signature): Jori Churchill 08/11/22 4:11 pm Technologist: [facility] hCG Quantitativeon hCG Quantitative 4616.0 mIU/mL High 0.0-0.6 [facility] Comment on above: Result Comment: Post -Menopausal Reference Range is: 0.1-11.6 mIU/mL Performed By: #### 1 [id number], [id number], [id number], [id number], [id number] ####[facility] (DEFAULT)[address] [place] [address] US PREG TVon 08-08-2022 US PREG TV [...] by: CHRISTIAN KATE Date: 2022-08-08 16:56 Normal [facility] Coding Summaryon 06-19-2022 Coding Summary HTMLBase 64 AoxvwiglINl8dWe+PGhl YWQ+AB3JYKRsY43hqHMi jL2CO0uRFY6VEXBAURDO OB5UCA6ucZO9BQttU9Ma biAv CuwqkWFkAC05BZq5CGK9 xAbkWCzcyM5gfRFwZ2e1 PyOgMH14fE68XUvqEAUo HjH2AcByvigbsYEh L9mpFjXhxAXwWjr+PHRh YmxlIHdpZHRoPScxMDAl EbYewVgfWC3hAq9nEKKv LWNvbGxhcHNlOiBj j4tpTBIgDEjkJS2moCmm E4VkeKI0TWPmg0x1Yp22 dHI+PAWnBHK1tNskFSyd y444GaFnk1hxWHV7 cZFdKYetFVI8O23is7B3 LZOiHWGaWGY6nDJ9vL9k uFakkauvF8NknYRkFoH3 JUL7xYWamD5qbHwf yqylwM0fLhw+R68POP3X ZPOPZM9PZgw1Y2CuHfpl dHI+OP26IGSzWN56lFQw cSInf6squLq4HqZt DEHcRED5zRybRWxxh6Uu IPPsF96joZVaa1V9ZILy zPzgqOSaVlQdyLN2sN6j RUroijeef1imehrd Kekqq5mcco78yW91G98d XDvlJMAaJOG1JPFsQJXm zIrnbv0boB4pIc7+IDxj u9suw7gnpQy3BfVg FTLeizYkiYhoJSV4f2Zu Lp51Y9CnnAkmq6EpUfn9 yc19wEFeq2H3rUZ3TNei AOSmyY9kIRzgZyQ5 NPPdVpZehQ90dJIaPEbq Ov1xwZqzuWsjSG6bBOHv muqsYNUaeY6wDBJflLDb yUpaRN4qVPNaneky g415ItKoGDX5PLMueKSt I4RovO6pZrQiHUZdDVNe X4BsnZQcIByvR366AUen GyD3UUZzkkRsH3Ol EHDtnXmzLdY0h3D4Hh2F u4LrssqlKPK4ZSqaLBQh ZvX0NjYuAiY5Y8QrIni5 UBEkmMygZQ0iY4Sy BWTqlqyweokdtVL9CBTv BDXssI20oQGpVMqjKw1d c3I5v718VVCzENQhiJ03 Oy7czKuuAPLvfPBR jV2bdfioy0qrwrlcUgCy KNYhAKt6OLb2AJBbaHpy TjIdUYC7XwU4LPN5gOIw dD1uwNlkcjhmwH2t Oyc+T90fjR0eYAK8FGP5 djxwABXlyxIsVS42DY13 P8IbHrsxnKAqlHN+PGRp pyXagVdcMH0fNuOu e0zqh7TsQBtlO9AiCMGn JLotYfp2JJFjDJS3zKP0 iP4hGEYkBJdwa2I9yVA9 L2QxltKfki5um9vo WDQnNWxaB26ksOBwh2E5 ZUXuxPU2OWTnnIoxNwYn hB89Gjn+YIKbaYbak9Hx Yxxku1qbr0wcdNl7 IjMwJSIgdmFsaWduPSJ0 l7SfBw44K54gPEgpPSFm UEMbDRRtTPSppFdeer0m oS8iLk3+PGNvbCB3 vQG9aZ7qWUHfYzS7OKax G312KzWdlGMfExbsr1oz c7vplUx2ReVaUJIeoeFz nHezYWV8l2LfMo14 W98nBQdwLMOlBHEbCDGf TKQadHmdxs3jiF8bBr8+ LL6pr2hgtv69aV26mES+ HSXvWXE2xDlmKAmc SSMolX2kAXosWsG1GHVl IvIvsB25xNQvJDtdCa9t tWgomEsiIM4mGWUabipi j111BdJhf9mcMERx yYJeCTwbRZM5S78ht5I1 FDSpYCZtZMR0eOK8oF7m bGlnbjogbGVmdDsgdmVy iPjiPVdcMRpmB518 IHRvcDsnPlBhdGllbnQg RwVwKXm5N2VyZaz4JZAb rIdcGG1sdSPgJPopCj9f gKygrKbyRN2cQOOb dpypd889VuMmp5alNMAy jGCpXOpwEOY0Z26iu0O7 EFFqTQPbLYG5zOJ9zY8y bGlnbjogbGVmdDsg clQfhXukIEjfKIbiR362 IHRvcDsnPkJpcnRoIERh aRJ8MF85MM82xIDlj1C1 kUL6J9ScHKXbzmme cjowfYD3JCBxQBOwbY94 Np0xaBggNh2hXWGpEXB8 TUVobKScP6GgwK5xJjOn ILGwZWGvQ3FnhJRj BAduJ041FWwjGpY5AWNs fiFdR4RzPVRmmXwpAkT3 m7I9Hv9BD1K8NZ55QN91 mEAbo4I1vPU5P9Dq BUMybfnymzbknIR3VPDa ZKUugO31Nf0hyXlaSg0a XZDcTXB4CDPojIXdM6Lw xN5iSkRwJWAvDDBf Q1CkkRVlKRwuV542LLet SaW4OTBijqRoT4UfLFOa cJetKwG2f6K2Kb3VLOo1 OM63HR73nCKbg2F5 aAK2W3YvVWJitlwobwuf sBM9OADrALRfnW27Tm1y jRexOo2jERLvLMG2DHSy rMCmU5IuvC7aVaBo CEMoKVKcS7AkbDRsQHuj M751NAtgAhI2ADOjfjPj B3RuMOZugVeqFnD6d1N3 Ez7DVLUiQG46QWS5 iIE2BK62SG06N0EnHlfk dGFibGU+PHRhYmxlIHdp ZHRoPScxMDAlJyBzdHls MG3qZg2nWLIqINPy gNdirOJsQbCzu2uhCSVw XQqoHQ6jtRooL9QvsVG6 NVTmn1k8Ww00A03iW0Tl dXA+IPVelDS3iHR9 nG5mJkBvYxQ8THtsX677 YnFqyUIvIazvk5gys9mf hPp8XeM6MMOeucGswHlx OYM2x0IsSp22O11k IHdpZHRoPSIxNSUiIHZh vOokwv9rmR5yXo0+PGNv yGA2rUM9lP4jKbMtNkP0 SQknM625GeIrpWHc Rnhvw7yqw8ejaIw0IrSc CVAuahGjhIkhMPU8l1Uy Yi03K6XunGgcr3OmKao2 me43iYAfo4Q0xHM4 K9BpDFZafapyvUBczKcl EU2rDXXsjyfzXMCtrB4v MGQpN8w4EoKgBdL7JCiv U8LiuiY9YCUmgTWm RLehLEZ5D05fr8H9WDGz COJyJVU4bAH6bC0zoZim bjogbGVmdDsgdmVydGlj BVtfRIxyY960WQSl mXthSACmmC0rSPPkcEFz gShgNT4hHRVuuzlqTvbN TEJFUlQsIFNIRUxCWSBM HZCPFeQ3X8LtJpk0 YNKyaBagTE8boVRbQHbw Ju0vwGgwdOtiQV3aUDVn rhdpWPBleC6kUWVkfFSj aAdvAL2aNELhhjbd c364YfKvSWC1VATxvFDm K8KafH2iGtYfJOMiLJMo L3JphYWxNEunQ614HSlr KqF1LIXsglDyZ3So OQJuhSvbYnN3v3X2Nx2f Bj6aEx7fEQMeVL35VN18 xYEed1X4nUO2Z9KtEJEy elhrciemqDM5KVCg JENapC92bURyINzqMs0x i8W7c947TBEyTRRyiF61 Fj8ffFtzPDLpdLIEgB5z bhqce6ufhymnCiAe NVIvTXu4KGu8PNAhiGzh KhNvVSG1DdM1TZN4aMOz kE2bhBepyqcsyB5nRlq+ KqSiEWHziqC7P1Qi Bgv3IPDsgJckHU8chQNy LNziGk1kdSzdbSltZC6w QAAmbefrLFAaqX8hLUXl uSYthCbuAJ5wMFUn djplf762AgMfETW1XIWy mAUdW7YuwQ3fPiRvSIKi DORoL2ZbaEDeXWxhR046 UGvrGhP3EZBvjnPv E4OqFXRulEjuTxK7a2N7 Ak0PYP7ZJIL0P4NgSbm1 YQLnyEhyEU0pxNGnIRkw Si4kfVfhqGvkPD1i JDJgvqeiLKQwiV8gDBZp aELfyMnxOY1fYYZescja u813DaOvBWY4UPRlmHYv F0DvcB7qMsTjOAFy AXXzS6DedIEjTEwbI079 KUafHhF4KTRdurSrY4Jr TTJijAhqPvC9a6T3Ko5F UDwvdGQ+NB39lg67 Q7HtXlsiAnu1FINlMBY3 iRR2gH4cSBEcUZyfj0W1 nYB2W0YxyfVkfm1kj2qj TPCaYEtuB19arNRa x7W3ZTXeiOS0OLFhaAbt OzWbtY15Ldq+PGNvbGdy v5VsLtibl9lco4cisYf5 IjMwJSIgdmFsaWdu ZFH6u0LwGy97O99pPHuu ZHRoPSIzMCUiIHZhbGln rb9jgU1gOc3+PGNvbCB3 dXR6hA3vXqUwYyP8 PVmlZ972JuHzzDEfWukj k8kzi4gldYc9OtYkXUAy xbAmfImiFTK8q0ZvWc03 T2SkzQcex6GsQfl8 sd60xHGhz2T4sMC1D5Ca XPEtzhxdzBShdLpiTL2p CHFedwbiKHTunR0fTYNa Y1v3ScPeXgW8CZqi F3DtqoF3PGHdyDFeKKOj zFXGpX9jlwhvo0egmeue HaQfLDTcYSj3OEf3ATUc hJwuDaVdJXK0TxZ5 CNF0kRZuyP7nlStzttvg fA2xJdt+KOm6x3bsuNLg FK7wrHF1JS45VQ96eKTu n1D9bIH9J5WoMQRl opqrfaeysVW0NVByCTOe aD45Uy3atYyrUq3gDGZw SGN5AOYavQMpY4TwdL4h EtTmNJWuWYIiZ4Cg vMNlVIqbB970NLzeGcA7 BOOzmbPjB4FuEGVjfUhu DuK1y8L8Dv6PJI90TJ54 SM75eFGrx0Y2mCK7 S8SrKDOuouaanbtenSJ1 TUMqIHVqsC58Gb1knAbg Tr4uIDOyTPA7BMUibJVj T7GrqW2rPaSpVHFi UUSkH1EoxLPvMAkxM167 JGeuIoJ1AHGzsqFzX8Ps HLZbuVybMdU5b4F5Qt9G Mf48UX37YN00yNRx s6N2yDV2F9JdQBJcktui exkulAZ4PCOzIMXtjK47 Xr1mbVyaIi8oGSRtQLF4 KTXkzSRfP2KkyU8q GnPeVIGtHOZbU4NokITn WSzfH544KOzoZfW1DQWv bjErO5JnGLRjdDipVqN7 d1R8Zs9IMMdlxxu0 P3HsBsytuXU+XR51DPPn EZ58sHCsiUPjt2jqlLr0 SeZaHXHsSBV7zMlwLBxm g0WxNSCqO44ufERd c2U (more content not included)... Normal [facility] C Throaton 06-14-2022 C Throat Ordered by Discern. Normal throat jonny isolated No pathogens isolated Normal [facility] Comment on above: Performed By: #### 1 [id number] #### [facility] (DEFAULT) [address] [place] [id number] ED Clinical Summaryon 2022 ED Clinical Summary [facility] ? Urgent Care [address] [place] [id number] Clinical Summary PERSON INFORMATION Name: LIA DESAI Age: 21 Years Sex: FEMALE : 2000 MRN: Acct#: Visit Reason: UC - Sore Throat; UC - Body Aches; SORE THROAT, COUGH, BODY ACHES Arrival: 06/12/2022 16:17:17 Discharge: 06/12/2022 17:23:00 LOS: 000 01:06 Check In: 06/12/2022 16:17:17 Checkout: 06/12/2022 17:23:00 Address: [address] [place] [id number] PCP: Provider, None PROVIDER INFORMATION Provider Role Assigned Unassigned Birdie James [employer] Nurse 06/12/2022 16:19:28 Nelson Sharma PA-C ED PA 06/12/2022 16:22:15 VITALS INFORMATION Vital Sign Triage Latest Temperature Tympanic Temperature Temporal Artery Pulse Rate O2 Sat 98 % 98 % Respiratory Rate Blood Pressure /76 mmHg /76 mmHg MEDICAL INFORMATION Medications Given: Allergy Information: Adhesive Bandage; Zithromax PHYSICIAN DOCUMENTATION DISCHARGE INFORMATION: Discharge Disposition: Home Discharge Location: Home PATIENT EDUCATION INFORMATION Instructions: Cough, Adult, Hnri-ui-Elob; Pharyngitis, Knnh-nm-Yfzq Follow-Up: With: Address: When: None Provider [address] [place] [address] Within 1 week Comments: Please follow-up with your primary care provider, call the office schedule an appointment to be seen in a week or sooner for continued care, you will be notified with your results, please take as Tessalon Perles as prescribed, take bkpu-rdi-smobots ibuprofen and Tylenol as needed for fevers, body aches, or headaches. Drink plenty of water to stay hydrated, and return back to the urgent care center for any worsening symptoms, concerns, or complications. DIAGNOSIS: 1:Pharyngitis; 2:Cough Patient Understands: Yes - Patient/family/careg iver verbalizes understanding of instructions given Comment: Normal [facility] ED Patient Summaryon 023 ED Patient Summary [facility] ? Urgent Care [address] [place], [place] [id number] PATIENT DISCHARGE INSTRUCTIONS Patient Information Name: LIA DESAI Age: 21 Years Date of : 2000 Reason For Visit: UC - Sore Throat; UC - Body Aches; SORE THROAT, COUGH, BODY ACHES Arrival Time: 06/12/2022 16:17:17 Primary Care Physician: Andreia, Tyson Attending Physician: Nelson Sharma PA-C Comment: Patient Education With: Address: When: None Provider [address] [place] [address] Within 1 week Comments: Please follow-up with your primary care provider, call the office schedule an appointment to be seen in a week or sooner for continued care, you will be notified with your results, please take as Tessalon Perles as prescribed, take mzvs-ywi-xtcrnnt ibuprofen and Tylenol as needed for fevers, [...] these instructions at home: Medicines ? Take wntk-bhx-aeriuqv and prescription medicines only as told by [...] things can cause a cough. ? Take meea-ppj-ytmtqpt and prescription medicines only as told by [...] provider. Document Revised: 05/13/2020 Document Reviewed: 04/13/2019 [employer] Patient Education ? 2021 [employer]. Pharyngitis Pharyngitis is a sore throat (pharynx). [...] Symptoms may (more content not included)... Normal [facility] Strep Aon 06-12-2022 Strep procedure control Pass Normal [facility] Comment on above: Performed By: #### 1 [id number], [id number] #### [facility] (DEFAULT) [address] [place] [id number] Streptococcus A Negative Normal Negative [facility] Comment on above: Performed By: #### 1 [id number] #### [facility] (DEFAULT) [address] [place] [id number] Urgent Care [facility] 023 Urgent Care Record [facility] ? Urgent Care [address] [place] [address] PATIENT DISCHARGE INSTRUCTIONS Patient Information Name: LIA DESAI Age: 21 Years Date of : 2000 Reason For Visit: UC - Sore Throat; UC - Body Aches; SORE THROAT, COUGH, BODY ACHES Arrival Time: 06/12/2022 16:17:17 Primary Care Physician: Provider, None Attending Physician: Nelson Sharma PA-C Comment: Visit Diagnosis: Diagnoses This Visit Cough (R05.9) Pharyngitis (J02.9) UC - Body Aches ([id number]) UC - Sore Throat ([id number]) If you received any narcotics, sedation, or [...] documents With: Address: When: None Provider [address] [place] [address] Within 1 week Comments: Please follow-up with your primary care provider, call the office schedule an appointment to be seen in a week or sooner for continued care, you will be notified with your results, please take as Tessalon Perles as prescribed, take wcgg-jbc-pgtpffn ibuprofen and Tylenol as needed for fevers, body aches, or headaches. Drink plenty of water to stay hydrated, and return back to the urgent care center for any worsening symptoms, concerns, or complications. Medication Information: The exam and treatment you received today in the [facility] were for an urgent problem and are not intended as complete care. It is important for you to follow up with a doctor, nurse practitioner, or physician?s pediatric medical assistant for ongoing care. If your symptoms [...] so we can reach you if necessary. [facility] has provided you with a complete list of medications post discharge. Please inform your hammer smith/provider of your visit and for further instruction on these medications. Any specific questions regarding your chronic medications and dosages should be discussed with your primary care physician(s) and/or pharmacist. New Medications [id number], [address], [place] [id number], [phone] benzonatate (Tessalon Perles 100 mg oral capsule) [...] these instructions at home: Medicines ? Take atnx-qtx-yhwfeyy and prescription medicines only as told by your doctor. (more content not included)... Normal [facility] US PELVIS AND TRANSVAGon US PELVIS AND [...] ANGELA SCOTT Date: 2022-06-04 06:57 Normal [facility] US PREG TVon 05-16-2022 US PREG TV [...] CHRISTIAN KATE Date: 2022-05-16 18:15 Normal [facility] HEP B SURFACE ANTIGEN SCREEN on 04-20-2022 HBsAg Screen Negative Normal Negative [facility] Comment on above: Performed By: #### H BSANS #### [facility] [address] [address] [address] Jeronimo Melgar HEPATITIS C VIRUS AB W/ REFL EX QUANTon 04-20-2022 HCV AB <0.1 Normal 0.0-0.9 [facility] Comment on above: Performed By: #### H CVPCRR #### [facility] [address] [address] [address] Jeronimo Melgar Interpretation: Comment Normal [facility] Comment on above: Result Comment: Nega tive Not infected with HCV, unless recent infection is suspected or other evidence exists to indicate HCV infection. Performed By: #### H CVPCRR #### [facility] [address] [address] [address] Jeronimo Melgar HIV 1 AND 2 WITH REFLEXon HIV Screen 4th Generation wRfx Non-Reactive Normal Non Reactive [facility] Comment on above: Result Comment: HIV Negative HIV-1/HIV-2 antibodies and HIV-1 p24 antigen were NOT detected. There is no laboratory evidence of HIV infection. Performed By: #### H IV12 #### [facility] [address] [place] [address] Dr. Jeronimo Melgar RPR QUANTon 04-20-2022 Rapid Plasma Reagin, Quant Non-Reactive Normal NonRea<1:1 [facility] Comment on above: Result Comment: Plea se Note: This test does not meet current guidelines for screening and diagnosis of syphilis. This test is intended for following treatment response in patients being treated for syphilis infection. To screen for syphilis infection, a reflex cascade that includes both RPR and a treponema-specific assay should be utilized, such as Treponema pallidum (Syphilis) Screening [place] (410909) or Rapid Plasma Reagin (RPR) Test With Reflex to Quantitative RPR and Confirmatory Treponema pallidum Antibodies (507714). Performed By: #### R PRQ #### [facility] [address] [place] [address] Dr. Jeronimo Melgar RUBELLA AB IGGon 04-20-2022 Rubella Antibodies, IgG 1.85 index Normal Immune >0.99 [facility] Comment on above: Result Comment: Non- immune <0.90 Equivocal 0.90 - 0.99 Immune >0.99 Performed By: #### B OX #### [facility] [address] [place] [address] Dr. Jeronimo Melgar BOX TEST SENT OUTon 04-19-19 23 SENT TO REF LAB 04/19/2022 Normal [facility] Comment on above: Performed By: #### B OX #### [facility] [address] [place] [address] Dr. Jeronimo Melgar CBC AUTO DIFFon 04-19-2022 BASO # 0.1 103/ul Normal 0.0-0.1 [facility] Comment on above: Performed By: #### B OX #### [facility] [address] [place] [address] Dr. Jeronimo Melgar Basophils/100 WBC (Bld) 0.5 % Normal 0.2-2.0 [facility] Comment on above: Performed By: #### B OX #### [facility] [address] [place] [address] Dr. Jeronimo Melgar EO # 0.1 103/ul Normal 0.0-0.7 [facility] Comment on above: Performed By: #### B OX #### [facility] [address] [place] [address] Dr. Jeronimo Melgar Eosinophils/100 WBC (Bld) 0.7 % Critically low 0.9-7.0 [facility] Comment on above: Performed By: #### B OX #### [facility] [address] [place] [address] Dr. Jeronimo Melgar Erythrocyte distribution width (RBC) [Ratio] 12.8 % Normal 11.0-15.0 [facility] Comment on above: Performed By: #### B OX #### [facility] [address] [place] [address] Dr. Jeronimo Melgar Hematocrit (Bld) [Volume fraction] 43.7 % Normal 36.0-48.0 [facility] Comment on above: Performed By: #### B OX #### [facility] [address] [place] [address] Dr. Jeronimo Melgar Hemoglobin (Bld) [Mass/Vol] 13.1 g/dL Normal 12.0-16.0 [facility] Comment on above: Performed By: #### B OX #### [facility] [address] [place] [address] Dr. Jeronimo Melgar IG # 0.02 10e3/ul Normal 0.00-0.03 [facility] Comment on above: Performed By: #### B OX #### [facility] [address] [place] [address] Dr. Jeronimo Melgar IG % 0.2 % Normal 0.0-0.5 [facility] Comment on above: Performed By: #### B OX #### [facility] [address] [place] [address] Dr. Jeronimo Melgar LYMPH # 2.6 103/ul Normal 1.2-3.8 [facility] Comment on above: Performed By: #### B OX #### [facility] [address] [place] [address] Dr. Jeronimo Melgar Lymphocytes/100 WBC (Bld) 27.3 % Normal 20.5-60.0 [facility] Comment on above: Performed By: #### B OX #### [facility] [address] [place] [address] Dr. Jeronimo Melgar MANUAL DIFF REQ NO Normal [facility] Comment on above: Performed By: #### B OX #### [facility] [address] [place] [address] Dr. Jeronimo Melgar MCH (RBC) [Entitic mass] 27.7 pg Normal 26.7-34.0 [facility] Comment on above: Performed By: #### B OX #### [facility] [address] [place] [address] Dr. Jeronimo Melgar MCHC (RBC) [Mass/Vol] 30.0 g/dL Normal 29.9-35.2 [facility] Comment on above: Performed By: #### B OX #### [facility] [address] [place] [address] Dr. Jeronimo Melgar MCV (RBC) [Entitic vol] 92.4 fL Normal 81.0-99.0 [facility] Comment on above: Performed By: #### B OX #### [facility] [address] [place] [address] Dr. Jeronimo Melgar MONO # 0.8 103/ul Normal 0.3-0.8 [facility] Comment on above: Performed By: #### B OX #### [facility] [address] [place] [address] Dr. Jeronimo Melgar Monocytes/100 WBC (Bld) 7.8 % Normal 1.7-12.0 [facility] Comment on above: Performed By: #### B OX #### [facility] [address] [place] [address] Dr. eJronimo Melgar NEUT # 6.1 103/ul Normal 1.4-6.5 [facility] Comment on above: Performed By: #### B OX #### [facility] [address] [place] [address] Dr. Jeronimo Melgar Neutrophils/100 WBC (Bld) 63.5 % Normal 43.0-75.0 [facility] Comment on above: Performed By: #### B OX #### [facility] [address] [place] [address] Dr. Jeronimo Melgar Platelet mean volume (Bld) [Entitic vol] 10.7 fL Normal 9.5-13.5 [facility] Comment on above: Performed By: #### B OX #### [facility] [address] [place] [address] Dr. Jeronimo Melgar PLT 399 103/ul Normal 150-450 [facility] Comment on above: Performed By: #### B OX #### [facility] [address] [place] [address] Dr. Jeronimo Melgar RBC 4.73 106/ul Normal 4.20-5.40 [facility] Comment on above: Performed By: #### B OX #### [facility] [address] [place] [address] Dr. Jeronimo Melgar WBC 9.6 103/ul Normal 4.0-11.0 [facility] Comment on above: Performed By: #### B OX #### [facility] [address] [place] [address] Dr. Jeronimo Melgar CULTURE URINEon 04-19-2022 CULTURE URINE Culture Observations: LIGHT GROWTH OF MIXED GENITAL JONNY. NO POTENTIAL PATHOGENS SEEN. Normal [facility] Comment on above: Performed By: #### B OX #### [facility] [address] [place] [address] Dr. Jeronimo Melgar DRUG SCREEN RAPID (URINE)on 04-19-2022 AMP Negative Normal NEGATIVE [facility] Comment on above: Performed By: #### H IV12 #### [facility] [address] [place] [address] Dr. Jeronimo Melgar BAR Negative Normal NEGATIVE [facility] Comment on above: Performed By: #### H IV12 #### [facility] [address] [place] [address] Dr. Jeronimo Melgar BUP Negative Normal NEGATIVE [facility] Comment on above: Performed By: #### H IV12 #### [facility] [address] [place] [address] Dr. Jeronimo Melgar BZO Negative Normal NEGATIVE [facility] Comment on above: Performed By: #### H IV12 #### [facility] [address] [place] [address] Dr. Jeronimo Melgar KRISTINA Negative Normal NEGATIVE [facility] Comment on above: Performed By: #### H IV12 #### [facility] [address] [place] [address] Dr. Jeronimo Melgar CUT-OFFS SEE BELOW Normal [facility] Comment on above: Result Comment: AMP (Amphetamine): 500ng/mL, BAR (Barbituates): 200 ng/mL, BZO (Benzodiazepines): 150 ng/mL, BUP (Buprenorphine): 10 ng/mL, KRISTINA (Cocaine): 150 ng/mL, mAMP (Methamphetamine): 500 ng/mL, MTD (Methadone): 200 ng/mL, OPI (Opiates): 100 ng/mL, OXY (Oxycodone): 100 ng/mL, PCP (Phencyclidine): 25 ng/mL, PPX (Propoxyphene): 300 ng/mL, THC (Cannabinoids): 50 ng/mL, TCA (Trycyclic Antidepressants): 300 ng/mL Performed By: #### H IV12 #### [facility] [address] [place] [address] Dr. Jeronimo Melgar DRUG CUT HEADER DRUG CLASS TEST SYSTEM CUT-OFF CONCENTRATIONS ARE FOLLOWS: Normal [facility] Comment on above: Performed By: #### H IV12 #### [facility] [address] [place] [address] Dr. Jeronimo Melgar mAMP Negative Normal NEGATIVE [facility] Comment on above: Performed By: #### H IV12 #### [facility] [address] [place] [address] Dr. Jeronimo Melgar MTD Negative Normal NEGATIVE [facility] Comment on above: Performed By: #### H IV12 #### [facility] [address] [address] [address] Jeronimo Melgar OPI Negative Normal NEGATIVE [facility] Comment on above: Performed By: #### H IV12 #### [facility] [address] [address] [address] Jeronimo Melgar OXY Negative Normal NEGATIVE [facility] Comment on above: Performed By: #### H IV12 #### [facility] [address] [address] [address] Jeronimo Melgar PCP Negative Normal NEGATIVE [facility] Comment on above: Performed By: #### H IV12 #### [facility] [address] [address] [address] Jeronimo Melgar PPX Negative Normal NEGATIVE [facility] Comment on above: Performed By: #### H IV12 #### [facility] [address] [address] [address] Jeronimo Melgar TCA Negative Normal NEGATIVE [facility] Comment on above: Performed By: #### H IV12 #### [facility] [address] [address] [address] Jeronimo Melgar THC Negative Normal NEGATIVE [facility] Comment on above: Performed By: #### H IV12 #### [facility] [address] [place] [address] Dr. Jeronimo Melgar GLYCOHEMOGLOBIN A1Con 2022 ADA RECOMMENDATION SEE BELOW Normal [facility] Comment on above: Result Comment: ADA RECOMMENDED LIMIT 4.0 - 6.0 ADA THERAPEUTIC TARGET < 7.0 ACTION SUGGESTED > 7.0 Performed By: #### A 1C #### [facility] [address] [place] [address] Dr. Jeronimo Melgar Glucose [Mass/Vol] 100 mg/dL Normal [facility] Comment on above: Performed By: #### A 1C #### [facility] [address] [place] [address] Dr. Jeronimo Melgar HbA1c (Bld) [Mass fraction] 5.1 % Normal 4.5-6.2 [facility] Comment on above: Performed By: #### A 1C #### [facility] [address] [place] [address] Dr. Jeronimo Melgar TYPE AND SCREENon 04-19-2022 TYPE AND SCREEN Negative Normal [facility] Comment on above: Performed By: #### B OX #### [facility] [address] [place] [address] Dr. Jeronimo Melgar CBC AUTO DIFFon 04-02-2022 BASO # 0.0 103/ul Normal 0.0-0.1 [facility] Comment on above: Performed By: #### C BC #### [facility] [address] [place] [address] Dr. Jeronimo Melgar Basophils/100 WBC (Bld) 0.3 % Normal 0.2-2.0 [facility] Comment on above: Performed By: #### C BC #### [facility] [address] [place] [address] Dr. Jeronimo Melgar EO # 0.0 103/ul Normal 0.0-0.7 [facility] Comment on above: Performed By: #### C BC #### [facility] [address] [place] [address] Dr. Jeronimo Melgar Eosinophils/100 WBC (Bld) 0.2 % Critically low 0.9-7.0 [facility] Comment on above: Performed By: #### C BC #### [facility] [address] [place] [address] Dr. Jeronimo Melgar Erythrocyte distribution width (RBC) [Ratio] 12.9 % Normal 11.0-15.0 [facility] Comment on above: Performed By: #### C BC #### [facility] [address] [place] [address] Dr. Jeronimo Melgar Hematocrit (Bld) [Volume fraction] 37.5 % Normal 36.0-48.0 [facility] Comment on above: Performed By: #### C BC #### [facility] [address] [place] [address] Dr. Jeronimo Melgar Hemoglobin (Bld) [Mass/Vol] 12.4 g/dL Normal 12.0-16.0 [facility] Comment on above: Performed By: #### C BC #### [facility] [address] [place] [address] Dr. Jeronimo Melgar IG # 0.05 10e3/ul Critically high 0.00-0.03 [facility] Comment on above: Performed By: #### C BC #### [facility] [address] [place] [address] Dr. Jeronimo Melgar IG % 0.3 % Normal 0.0-0.5 [facility] Comment on above: Performed By: #### C BC #### [facility] [address] [place] [address] Dr. Jeronimo Melgar LYMPH # 2.0 103/ul Normal 1.2-3.8 [facility] Comment on above: Performed By: #### C BC #### [facility] [address] [place] [address] Dr. Jeronimo Melgar Lymphocytes/100 WBC (Bld) 14.1 % Critically low 20.5-60.0 [facility] Comment on above: Performed By: #### C BC #### [facility] [address] [place] [address] Dr. Jeronimo Melgar MANUAL DIFF REQ NO Normal [facility] Comment on above: Performed By: #### C BC #### [facility] [address] [place] [address] Dr. Jeronimo Melgar MCH (RBC) [Entitic mass] 27.9 pg Normal 26.7-34.0 [facility] Comment on above: Performed By: #### C BC #### [facility] [address] [place] [address] Dr. Jeronimo Melgar MCHC (RBC) [Mass/Vol] 33.1 g/dL Normal 29.9-35.2 [facility] Comment on above: Performed By: #### C BC #### [facility] [address] [place] [address] Dr. Jeronimo Melgar MCV (RBC) [Entitic vol] 84.3 fL Normal 81.0-99.0 [facility] Comment on above: Performed By: #### C BC #### [facility] [address] [place] [address] Dr. Jeronimo Melgar MONO # 0.6 103/ul Normal 0.3-0.8 [facility] Comment on above: Performed By: #### C BC #### [facility] [address] [place] [address] Dr. Jeronimo Melgar Monocytes/100 WBC (Bld) 4.0 % Normal 1.7-12.0 [facility] Comment on above: Performed By: #### C BC #### [facility] [address] [place] [address] Dr. Jeronimo Melgar NEUT # 11.7 103/ul Critically high 1.4-6.5 [facility] Comment on above: Performed By: #### C BC #### [facility] [address] [place] [address] Dr. Jeronimo Melgar Neutrophils/100 WBC (Bld) 81.1 % Critically high 43.0-75.0 [facility] Comment on above: Performed By: #### C BC #### [facility] [address] [place] [address] Dr. Jeronimo Melgar Platelet mean volume (Bld) [Entitic vol] 10.2 fL Normal 9.5-13.5 [facility] Comment on above: Performed By: #### C BC #### [facility] [address] [place] [address] Dr. Jeronimo Melgar PLT 420 103/ul Normal 150-450 [facility] Comment on above: Performed By: #### C BC #### [facility] [address] [place] [address] Dr. Jeronimo Melgar RBC 4.45 106/ul Normal 4.20-5.40 [facility] Comment on above: Performed By: #### C BC #### [facility] [address] [place] [address] Dr. Jeronimo Melgar WBC 14.4 103/ul Critically high 4.0-11.0 [facility] Comment on above: Performed By: #### C BC #### [facility] [address] [place] [address] Dr. Jeronimo Melgar ER URINE PROFILEon 2 Bilirubin Ql (U) Negative Normal NEGATIVE [facility] Comment on above: Performed By: #### B OX #### [facility] [address] [place] [address] Dr. Jeronimo Melgar Clarity (U) CLEAR Normal CLEAR [facility] Comment on above: Performed By: #### B OX #### [facility] [address] [place] [address] Dr. Jeronimo Melgar Color (U) YELLOW Normal YELLOW [facility] Comment on above: Performed By: #### B OX #### [facility] [address] [place] [address] Dr. Jeronimo FLORES A micrscopic examination will be performed if indicated. Normal [facility] Comment on above: Performed By: #### B OX #### [facility] [address] [place] [address] Dr. Jeronimo Melgar Glucose Ql (U) Negative Normal NEGATIVE [facility] Comment on above: Performed By: #### B OX #### [facility] [address] [place] [address] Dr. Jeronimo Melgar Hemoglobin Ql (U) Negative Normal NEGATIVE [facility] Comment on above: Performed By: #### B OX #### [facility] [address] [place] [address] Dr. Jeronimo Melgar Ketones Ql (U) >=80 Abnormal NEGATIVE [facility] Comment on above: Performed By: #### B OX #### [facility] [address] [place] [address] Dr. Jeronimo Melgar LEUKOCYTES Negative Normal NEGATIVE [facility] Comment on above: Performed By: #### B OX #### [facility] [address] [place] [address] Dr. Jeronimo Melgar Nitrite Ql (U) Negative Normal NEGATIVE [facility] Comment on above: Performed By: #### B OX #### [facility] [address] [place] [address] Dr. Jeronimo Melgar pH (U) 7.0 [pH] Normal 5-9 [facility] Comment on above: Performed By: #### B OX #### [facility] [address] [place] [address] Dr. Jeronimo Melgar SPEC GRAVITY 1.020 Normal 1.005-<=1.025 [facility] Comment on above: Performed By: #### B OX #### [facility] [address] [place] [address] Dr. Jeronimo Melgar UA PROTEIN TRACE Normal NEGATIVE/ TRACE [facility] Comment on above: Performed By: #### B OX #### [facility] [address] [address] [address] Jeronimo Melgar UR MICRO IND NOT INDICATED Normal [facility] Comment on above: Performed By: #### B OX #### [facility] [address] [place] [address] Dr. Jeornimo Melgar Urobilinogen Qn (U) 1.0 {Pepito'U}/dL Normal 0.2 - 1. 0 [facility] Comment on above: Performed By: #### B OX #### [facility] [address] [place] [address] Dr. Jeronimo Melgar PROF CHEM 8 (BAS METB)on Anion gap [Moles/Vol] 12.7 mmol/L Normal [facility] Comment on above: Performed By: #### B MP #### [facility] [address] [place] [address] Dr. Jeronimo Melgar Calcium [Mass/Vol] 9.1 mg/dL Normal 8.5-10.1 [facility] Comment on above: Performed By: #### B MP #### [facility] [address] [place] [address] Dr. Jeronimo Melgar Chloride [Moles/Vol] 103 mmol/L Normal 98-107 [facility] Comment on above: Performed By: #### B MP #### [facility] [address] [place] [address] Dr. Jeronimo Melgar CO2 [Moles/Vol] 23.9 mmol/L Normal 21.0-32.0 [facility] Comment on above: Performed By: #### B MP #### [facility] [address] [address] [address] Jeronimo Melgar Creatinine [Mass/Vol] 0.78 mg/dL Normal 0.55-1.02 [facility] Comment on above: Performed By: #### B MP #### [facility] [address] [address] [address] Jeronimo Melgar EGFR-AF [place] >60 Normal >=60 [facility] Comment on above: Performed By: #### B MP #### [facility] [address] [place] [address] Dr. Jeronimo Melgar EGFR-NON AF [place] >60 Normal >=60 [facility] Comment on above: Performed By: #### B MP #### [facility] [address] [place] [address] Dr. Jeronimo Melgar Glucose [Mass/Vol] 155 mg/dL Critically high 74-106 [facility] Comment on above: Performed By: #### B MP #### [facility] [address] [place] [address] Dr. Jeronimo Melgar Potassium [Moles/Vol] 3.6 mmol/L Normal 3.5-5.1 [facility] Comment on above: Performed By: #### B MP #### [facility] [address] [place] [address] Dr. Jeronimo Melgar Sodium [Moles/Vol] 136 mmol/L Normal 136-145 [facility] Comment on above: Performed By: #### B MP #### [facility] [address] [place] [address] Dr. Jeronimo Melgar Urea nitrogen [Mass/Vol] 7.0 mg/dL Normal 7.0-18.0 [facility] Comment on above: Performed By: #### B MP #### [facility] [address] [place] [address] Dr. Jeronimo Melgar Urea nitrogen/Creatinine [Mass ratio] 9.0 mg/mg Normal [facility] Comment on above: Performed By: #### B MP #### [facility] [address] [place] [address] Dr. Jeronimo Melgar US PREG TVon 03-28-2022 [...] ANGELA SCOTT Date: 2022-03-28 16:32 Normal [facility] US PELVIS AND TRANSVAGon US PELVIS [...] CHRISTIAN KATE Date: 2021-10-17 16:35 Normal [facility] CHLAMYDIA/GONOCOCCUS MILY (SW AB/URINE/PAPon 10-14-2021 Chlamydia trachomatis, MILY Positive Abnormal Negative [facility] Comment on above: Result Comment: . Performed By: #### C T/NGNA #### [facility] [address] [address] [address] Jeronimo Melgar Neisseria gonorrhoeae, MILY Negative Normal Negative [facility] Comment on above: Performed By: #### C T/NGNA #### [facility] [address] [address] [address] Jeronimo Melgar VAGINITIS/VAGINOSIS DNA PROB Obed 10-13-2021 Lesa species Negative Normal Negative [facility] Comment on above: Performed By: #### V AGINT #### [facility] [address] [address] [address] Jeronimo Melgar Gardnerella vaginalis Negative Normal Negative [facility] Comment on above: Performed By: #### V AGINT #### [facility] [address] [address] [address] Jeronimo Melgar Trichomonas vaginalis Negative Normal Negative [facility] Comment on above: Performed By: #### V AGINT #### [facility] [address] [address] [address] Jeronimo Melgar XR foot LT min 3V*on 022 XR foot LT min 3V* [facility] [place] [address] [place] [address] XRay Report Signed Patient: Lia Desai MR#: [id number] : 2000 Acct:[id number] Age/Sex: 20 / F ADM Date: 07/18/21 Loc: ER Room: Type: [facility] ER Attending Dr: Ordering Provider: Oneil Ricci APRN Date of Service: 07/18/21 XR/XR foot LT min 3V*: Extremity Injury, Lower ([id number]) XR/XR ankle LT min 3V*: Extremity Injury, [...] Brewer Jr., M.D.07/18/2021 6:15 PM Dictation Location: [place] [address] Transcribed By: CYNDEE [id number] Dictated By: Bijan Brewer Jr, MD 07/18/211812 Signed By: 07/18/211814 [facility] XR knee RT 4V*on 05-15-2021 XR knee RT 4V* [facility] [place] [address] [place], [place] [id number] XRay Report Signed Patient: Lia Desai MR#: [id number] : 2000 Acct:[id number] Age/Sex: 20 / F ADM Date: 05/15/21 Loc: ER Room: Type: [facility] ER Attending Dr: Ordering Provider: Yovani Valle [...] Ana Juan M.D.05/15/2021 8:11 PM Dictation Location: [place] [address] Transcribed By: [facility] 05/15/212010 Dictated By: Ana Juan II, MD 05/15/212008 Signed By: 05/15/212010 [facility] Vital Signs Date Time Vital Sign Value Performing Clinician Faci lity 07-18-2021 16:56-0400 Body height 167.64 cm [facility] 07-18-2021 16:56-0400 Body mass index (BMI) [Percentile] Per age and sex 98.9 % [facility] 07-18-2021 16:56-0400 Body mass index (BMI) [Ratio] 44.3 kg/m2 [facility] 07-18-2021 16:56-0400 Body temperature 98.3 [degF] [facility] 07-18-2021 16:56-0400 Body weight 124.6 kg [facility] 07-18-2021 16:56-0400 Diastolic blood pressure 108 mm[Hg] [facility] 07-18-2021 16:56-0400 Heart rate 80 /min [facility] 07-18-2021 16:56-0400 Respiratory rate 18 /min [facility] 07-18-2021 16:56-0400 Systolic blood pressure 162 mm[Hg] [facility] 05-15-2021 19:47-0500 Body height 167.64 cm [facility] 05-15-2021 19:47-0500 Body mass index (BMI) [Percentile] Per age and sex 98.9 % [facility] 05-15-2021 19:47-0500 Body mass index (BMI) [Ratio] 43.7 kg/m2 [facility] 05-15-2021 19:47-0500 Body temperature 98.8 [degF] [facility] 05-15-2021 19:47-0500 Body weight 122.95 kg [facility] 05-15-2021 19:47-0500 Diastolic blood pressure 65 mm[Hg] [facility] 05-15-2021 19:47-0500 Heart rate 75 /min [facility] 05-15-2021 19:47-0500 Respiratory rate 16 /min [facility] 05-15-2021 19:47-0500 SaO2% (BldA) [Mass fraction] 100 % [facility] 05-15-2021 19:47-0500 Systolic blood pressure 144 mm[Hg] [facility] Encounters Encounter Date Encounter Type Care Provider Facility Start: 05-26-2023 End: 05-26-2023 Emergency department patient visit [facility] Facility:[facility] Start: 05-17-2023 Clinisync Result Encounter Robert Marrero DO Work Phone: [facility] Unsolicited Start: 05-17-2023 Clinisync Result Encounter Robert Janes DO Work Phone: [facility] Unsolicited Start: 05-15-2023 End: 05-15-2023 Emergency department patient visit Mamie Moore Facility:[facility] Start: 05-14-2023 Chart abstracting Robert Janes DO Work Phone: [facility] Start: 05-07-2023 Documentation procedure Leah Hernandez RN [facility] Certified Nurse [facility] [place] Start: 05-02-2023 End: 05-02-2023 ambulatory Not Available Start: 04-19-2023 Telephone encounter Leah Hernandez RN [facility] Certified Nurse [facility] [place] Start: 04-17-2023 Telephone encounter Leah Hernandez RN [facility] Certified Nurse [facility] [place] Start: 04-15-2023 End: 04-15-2023 Emergency department patient visit Yassine Maldonado Facility:[facility] Start: 04-12-2023 End: 04-12-2023 ambulatory Oneil MILLS Facility:[facility] Start: 04-05-2023 Orders Only Leah Hernandez RN [facility] Certified Nurse [facility] [place] Comment on above: Nausea and vomiting during (Primary Dx) Start: 03-01-2023 End: 03-01-2023 Emergency department patient visit Tom Clemons Sarah Facility:[facility] Start: 02-26-2023 End: 02-26-2023 ambulatory Errol Martin PAC Facility:[facility] Start: 02-14-2023 End: 02-14-2023 ambulatory DORA MILLS Facility:[facility] Start: 11-15-2022 End: 11-15-2022 Emergency department patient visit None Provider Facility:[facility] Start: 08-25-2022 End: 08-26-2022 ambulatory Alaina Matta CNM Facility:[facility] Start: 08-11-2022 End: 08-11-2022 Emergency department patient visit Adamaris Jaeger PA-C Facility:[facility] Start: 08-08-2022 End: 08-09-[address] BALDOMERO ELLER . Facility: Start: 06-12-2022 End: 06-12-2022 ambulatory None Provider Facility:[facility] Start: 06-02-2022 End: 06-03-[address] BALDOMERO ELLER . Facility:[facility] Start: 05-18-2022 Encounter for other preprocedural examination DR BALDOMERO ELLER . [facility] Start: 05-17-2022 End: 05-17-[address] BALDOMERO [...] DR ANA LEDESMA Facility:[facility] Start: 03-29-2022 ambulatory [facility] Start: 03-28-2022 End: 03-29-[address] BALDOMERO ELLER . Facility:[facility] Start: 10-17-2021 End: 10-18-[address] BALDOMERO ELLER . Facility:[facility] Start: 10-12-2021 End: 10-12-[address] BALDOMERO ELLER . Facility:[facility] Start: 07-18-2021 End: 07-18-2021 Emergency department patient visit [facility] Start: 05-15-2021 End: 05-15-2021 Emergency department patient visit [facility] Procedures Date Procedure Procedure Detail Performing Clinician Start: 05-17-2023 ALL CBC WITH AUTO DIFF Robert Marrero DO Work Phone: Start: 05-15-2021 X-ray of right knee Plan of Treatment Date Care Activity Detail Author Start: 05-15-2028 DTaP,Tdap and Td Vaccines (2 - Td or Tdap) DTaP,Tdap and Td Vaccines (2 - Td or Tdap) [facility] Start: 03-05-2024 Adult BMI Screening Adult BMI Screen ing [facility] Start: 03-05-2024 Tobacco Screening Tobacco Screening [facility] Start: 09-26-2023 Screening for Chlamy driss trachomatis Chlamydia Screening [facility] Start: 06-03-2023 End: 06-03-2023 Patient encounter procedure 06/03/2023 2:10 PM EST Routine [facility] [address] [place] [address] Robert Marrero, DO [address] [place] [address] [facility] Start: 04-17-2023 End: 04-17-2023 ambulatory 04/17/2023 8:30 AM EST Initial [facility] [place] [address] [address] [place] [address] [facility] Certified Nurse [facility] [place] Start: 12-07-2022 Influenza vaccination Influenza Vacc ine [facility] Start: 2022 Screening for malign ant neoplasm of cervix Pap Smear [facility] Start: 07-18-2021 X-ray of left ankle XR ankle LT min 3V* [facility] Start: 07-18-2021 X-ray of left foot XR foot LT min 3V * [facility] Start: 10-08-2019 Adult BMI Follow Up Plan Adult BMI Follow Up Plan [facility] Start: 2013 Depression Screening Depression Scre ening [facility] Patient Education [facility] Work Phone: Patient referral [facility] Work Phone: Payers Date Payer Category Payer Medicaid [id number] 2001 Unknown [id number] 2.16.84 0.1.343410.3.579.2.593 2001 Unknown [id number] 2.16.84 0.1.071100.3.579.2.593 2001 Unknown [id number] 2.16.84 0.1.864114.3.579.2.593 2001 Unknown [id number] 2.16.84 0.1.591898.3.579.2.593 2001 Unknown [id number] 2.16.84 0.1.329216.3.579.2.593 2001 Unknown [id number] 2.16.84 0.1.457810.3.579.2.593 2001 Unknown [id number] 2.16.84 0.1.848226.3.579.2.593 2001 Unknown [id number] 2.16.84 0.1.330642.3.579.2.593 2001 Unknown [id number] 2.16.84 0.1.470757.3.579.2.593 2001 Unknown [id number] 2.16.84 0.1.372424.3.579.2.593 2001 Unknown [id number] 2.16.84 0.1.811144.3.579.2.593 2001 Unknown [id number] 2.16.84 0.1.380049.3.579.2.1259 2001 Unknown [id number] 2.16.8 40.1.569178.3.579.2.718 2001 Unknown [id number] 2.16.8 40.1.381438.3.579.2.718 2001 Unknown [id number] 2.16.8 40.1.090554.3.579.2.718 2001 Unknown [id number] 2.16.8 40.1.352335.3.579.2.718 2001 Unknown [id number] 2.16.8 40.1.386968.3.579.2.718 2001 Unknown [id number] 2.16.8 40.1.218320.3.579.2.718 2001 Unknown [id number] 2.16.8 40.1.793817.3.579.2.8 2001 Unknown [id number] 2.16.8 40.1.418990.3.579.2.718 2001 Unknown [id number] 2.16.8 40.1.998048.3.579.2.718 2001 Unknown [id number] 2.16.8 40.1.543867.3.579.2.718 2001 Unknown [id number] 2.16.8 40.1.283131.3.579.2.718 1959 Unknown [id number] Self-pay Self Pay [id number] Social History Date Type Detail Facility Start: 07-18-2021 End: 05-14-2023 Tobacco smoking status NHIS Never smoked tobacco (finding) [facility] Start: 2000 Sex Assigned At Female [facility] History of tobacco use Passive smoker [facility] Start: 08-01-2022 Tobacco use and exposure Smokeless tobacco non-user [facility] Start: 03-05-2023 Alcohol intake Ex-drinker (finding) [facility] Start: 03-05-2023 End: 05-14-2023 History of Social function [facility] Start: 03-05-2023 End: 05-14-2023 Tobacco use panel [facility] Housing Instability Unknown [facility] Start: 08-14-2022 Alcohol Comment social [facility] Start: 2000 Sex Assigned At Not on file [facility] Start: 05-14-2023 Alcohol intake Lifetime non-drinker (finding) [facility] Start: 03-20-2023 [facility] Start: 05-01-2023 Gender identity Identifies as female gender (finding) [facility] Start: 05-01-2023 Sexual orientation Heterosexual (finding) [facility] Clinical Notes 06-12-2022 to 05-26-2023 Leah Hernandez [...] Keep all follow-up visits. Medicines ? Take kyie-oqh-yeokrsk and prescription medicines only as told by [...] be an em (more content not included)... [facility] 05-15-2023 Note Education Materials Obstetrics and Gynecology [...] uri tea. ? Taking prescription medicine or qsaf-eep-forntjd medicine as told by your health care [...] or sour. These include lemonade, uri prabhakar, lemon?[place] soda, ice water, and sparkling water. Things [...] food. The s (more content not included)... [facility] 05-07-2023 History of Presen t illness Narrative Letter sent to patient via [facility] and also to her My Chart regarding her missed OB intake appointment and also her MICHAEL for her Chlamydia. documented in this encounter [facility] 04-19-2023 Miscellaneous Notes Called patient to reschedule her IOB intake visit. No answer. Left message to call office to reschedule her appointment. documented in this encounter [facility] 04-19-2023 Telephone encounter Note Called patient to reschedule her IOB intake visit. No answer. Left message to call office to reschedule her appointment. [facility] 04-17-2023 Miscellaneous Notes Patient called for her OB intake per phone. No answer. Left message to call office. documented in this encounter [facility] 04-17-2023 Telephone encounter Note Patient called for her OB intake per phone. No answer. Left message to call office. [facility] 04-15-2023 Note Education Materials Gastroenterology Nausea [...] ? Low-calorie sports drinks. ? Eat bland, pfor-hg-lijnid foods in small amounts as you are able, such as: ? Bananas. ? Applesauce. ? Rice. ? Low-fat (lean) meats. ? [place]. ? Crackers. ? Avoid drinking fluids that have a lot of sugar or caffeine in them. This includes energy drinks, sports drinks, and soda. ? Avoid alcohol. ? Avoid spicy or fatty foods. General instructions ? Take ailo-jag-kxctyha and prescription medicines only as told by your doctor. ? Drink enough fluid to keep your pee (urine) pale yellow. ? Wash your hands often with soap and water for at least 20 seconds. If you cannot use soap and water, use hand manager willow. ? Make sure that everyone in your [...] doctor about eating and drinking. ? Take nsih-ueq-lwqcbka and prescription medicines only as told by your doctor. ? Contact your doctor if your symptoms get worse or you have new symptoms. ? Keep all follow-up visits. This information is not intended to replace advice given to you by your health care provider. Make sure you discuss any questions you have with your health care provider. Document Revised: 09/29/2021 Document Reviewed: 09/29/2021 [employer] Patient Education ? 2022 [employer]. [facility] 04-12-2023 Note Patient Education Ma terials Follows:and [...] these instructions at home: Medicines ? Take xbhb-aps-rtjavcg and prescription medicines only as told by your health care provider. Do not use any prescription, xgwo-zbb-bcogkvz, or herbal medicines for morning sickness without [...] provider. Document Revised: 11/07/2020 Document Reviewed: 10/17/2020 [employer] Patient Education ? 2022 [employer]. [facility] 03-01-2023 Note Education Materials Pulmonary Medicine Acute [...] Follow these instructions at home: ? Take sjkv-uue-miqwjqq and prescription medicines only as told by [...] and water are not available, use hand manager willow. ? Avoid contact with people who have [...] is easier to cough up. ? Take hras-mxj-sulcogh an (more content not included)... [facility] 02-26-2023 Note Patient Education Ma terials Follows:Disease [...] to help relieve symptoms, such as: ? Dxfn-flv-dqbfvwx cold medicines. ? Cough suppressants. Coughing is [...] other clear broths. General instructions ? Take xqtb-pao-dwmxirt and prescription medicines only as told by [...] and water are not available, use hand manager willow. ? Avoid touching your mouth, face, eyes, [...] These symptoms may (more content not included)... [facility] 02-14-2023 Note Patient Education Ma terials Follows: [...] elastic wrap to support your hand. ? Pkuq-ilb-sunetow medicines to control pain. Follow these instructions [...] or lying down. General instructions ? Take hoyo-otf-wyyxvaq and prescription medicines only as told by [...] provider. Document Revised: 07/13/2021 Document Reviewed: 07/13/2021 [employer] Patient Education ? 2022 [employer] How [...] on your pr (more content not included)... [facility] 11-15-2022 Note Education Materials Orthopedics [facility] [...] by your health care provider. Stretching and zvyfc-ra-irdnmu exercises These exercises warm up your muscles [...] standing, keep y (more content not included)... [facility] 08-11-2022 Note Education Materials Obstetrics and Gynecology [...] these instructions at home: Medicines ? Take jxbz-wpw-sgjvwxo and prescription medicines only as told by [...] Where to find more information ? [employer] [place] College of Obstetricians and Gynecologists: acog.org ? U.[place]. Department of Health and Human Services Office of Women's Health: hrsa.gov/xcffca-jnkoag-utxxco Contact a doctor if: ? You have [...] ? Text the Crisis Text Line at 116147. Summary ? A miscarriage is the loss [...] provider. Document Revised: 09/23/2020 Document Reviewed: 09/23/2020 [employer] Patient Education ? 2021 [employer]. [facility] 06-12-2022 Note Patient Education Ma terials Follows: [...] these instructions at home: Medicines ? Take crkm-gri-lictwbk and prescription medicines only as told by [...] things can cause a cough. ? Take kxyd-nlu-cztkskt and prescription medicines only as told by [...] provider. Document Revised: 05/13/2020 Document Reviewed: 04/13/2019 [employer] Patient Education ? 2021 [employer] Infectious Disease Pharyngitis Pharyngitis is a [...] these instructions at home: Medicines ? Take jedb-fol-owftlkz and prescription medicines only as told by your doctor. ? If you were prescribed an antibiotic medicine, take it as told by your doctor. Do not stop taking the antibiotic even if you start to feel better. ? Use throat loze (more content not included)... [facility] Evaluation note No assessment inform ation available [facility] Work Phone: Evaluation note Diagnosis Nausea and vomiting during - Primary [facility] filedocumented in this encounter [facility] System[facility]ructionsNot on filedocumented in this encounter [facility] Chief Complaint and Reason for [...] Dates NON STAFF Primary Care Provider Active [employer] Specialist Relationship Specialty Start Date End Date Services, [facility] [address] [place], [place] PCP - General Family Medicine 08/11/18 Foreign Broad[employer] Specialist Relationship Specialty Start Date End Date Services, [facility] [address] [place] PCP - General Family Medicine 08/11/18 Foreign Broadcast Specialist Relationship Specialty Start Date End Date Services, [facility] [address], [place] PCP - General Family Medicine 08/11/18 Goals (unrecognized section and content) Goals may be documented in a n alternate sectionNot on filedocumented as of this encounterNot on filedocumented as of this encounterNot on filedocumented as of this encounterNot on filedocumented as of this encounter INFORMATION SOURCE (unrecogn ized section and content) DATE CREATED AUTHOR 07/27/2021 [facility] DATE CREATED AUTHOR AUTHOR'S ORGANIZ ATION 08/16/2022 [facility] DATE CREATED AUTHOR AUTHOR'S ORGANIZ ATION 05/04/2023 [facility] DATE CREATED AUTHOR AUTHOR'S ORGANIZ ATION 06/08/2023 [facility] FOR RECORDS PERTAINING TO PATIENTS [...] BE BASED ON THE PRIMARY CLINICAL RECORDS. [employer] provides no warranty or guarantee of the accuracy or completeness of information in this document.
--- NOTE | 2023-06-15 13:59 | ED.PREGNANC1 ---
HPI - General Chief complaint: Abdominal Pain Stated complaint: ABDOMINAL PAIN/ 14 WEEKS Time Seen by Provider: 06/15/23 13:42 Source: patient Mode of arrival: walk-in History of Present Illness HPI Narrative: Patient suddenly experienced lower abdominal pain about an hour before arrival. Nothing taken for the pain. No vaginal bleeding. She already had 8wk ultrasound showing single live IUP. She sees Dr Marrero. She is A3 Related Data Allergies Allergy/AdvReac Type Severity Reaction Status Date / Time adhesive tape Allergy Severe Verified 06/15/23 13:50 azithromycin [From Zithromax] Allergy Severe Verified 06/15/23 13:50 Exam Narrative Exam Narrative: Nurses notes and vital signs reviewed and patient is not hypoxic. afebrile General: Well-appearing and in no apparent distress. Skin: Warm, dry, no pallor noted. No rash. Eye: Pupils are equal, round and EOMI. No scleral icterus. Ears, Nose, Mouth, and Throat: Oral mucosa is moist Cardiovascular: Regular Rate and Rhythm without murmur, gallop or rub. Respiratory: No accessory muscle use or respiratory distress. Lungs are clear to auscultation, no wheezing, rales or rhonchi Back: No midline thoracic or lumbar vertebral tenderness. No CVA tenderness Musculoskeletal: normal ROM, no calf or popliteal tenderness, no lower extremity edema/swelling GI: Abdomen is soft, non-distended. Normal bowel sounds. No masses appreciated. lower abdominal tenderness to palpation. No rebound, guarding, or rigidity noted. Neurological: A&O x4. No cranial nerve dysfunction observed. No truncal ataxia. Moves all extremities. Sensation intact. Psychiatric: Cooperative and interactive. Normal mood and affect. Constitutional Vital Signs, click to edit/add: Last Vital Signs Temp 97.5 F L 06/15/23 13:43 Pulse 92 H 06/15/23 13:43 Resp 16 06/15/23 13:43 BP 124/90 06/15/23 13:43 Pulse Ox 100 06/15/23 13:43 O2 Del Method Room Air 06/15/23 13:43 Course Vital Signs Vital signs: Vital Signs Temperature 97.5 F L 06/15/23 13:43 Pulse Rate 92 H 06/15/23 13:43 Respiratory Rate 16 06/15/23 13:43 Blood Pressure 124/90 06/15/23 13:43 Pulse Oximetry 100 06/15/23 13:43 Oxygen Delivery Method Room Air 06/15/23 13:43 Temperature 97.5 F L 06/15/23 13:43 Pulse Rate 92 H 06/15/23 13:43 Respiratory Rate 16 06/15/23 13:43 Blood Pressure 124/90 06/15/23 13:43 Pulse Oximetry 100 06/15/23 13:43 Oxygen Delivery Method Room Air 06/15/23 13:43 MDM - OB/Uterine Contractions MDM Narrative Medical decision making narrative: FHTs 160-170 per ED nurse. patient given oral tylenol for pain. I spoke with Dr Marrero and he asked us to get pelvic/ US. Pelvis US = 14wks, 5days, no worrisome issues. Patient informed, given reassurance and discharged home. She will see Dr Marrero for out-patient follow up. Imaging Data us pelvis/ob 14weeks: Radiologist's impression: ITS Impressions Ultrasound 06/15/23 14:02 IMPRESSION: No suspicious finding. Electronically authenticated by: BOBO LIZARRAGA Date: 06/15/2023 15:17 Discharge Plan Discharge Stand Alone Forms: Portal Instructions Chief Complaint: Abdominal Pain Clinical Impression: Abdominal pain in Patient Disposition: Home, Self-Care Time of Disposition Decision: 14:38 Instructions: Abdominal Pain in (ED) Referrals: Robert Marrero DO [Physician] - As needed Discharge Date/Time: 06/15/23 15:00
--- NOTE | 2023-06-15 14:02 | US_ITS ---
[address] [address] Patient Name: TEE DESAI MRN: [id number] date: 2000 Sex: F Assigned Patient Location: ER Current Patient Location: Accession/Order Number: [id number] Exam Date: 06/15/2023 14:20 Report Date: 06/15/2023 15:17 At the request of: KATTY MARTINEZ Procedure: US OB <= 14 weeks fetus EXAM: US OB <= 14 weeks fetus HISTORY: , abdominal pain COMPARISON: 05/02/2023 FINDINGS: [place] intrauterine gestation Gestational sac: 6.7 cm, CRL: 9.1 cm, 15 weeks 0 day Yolk sac: Not visualized Heart rate: 168 bpm HC: 10.9 cm, 15 weeks, 2 days BPD: 2.7 CM, 14 weeks, 4 days AC: 8.1, 14 weeks, 4 days FL: 1.3 cm, 13 weeks, 6 days Estimated weight: 95.36 g + 14.30g Placenta: Normal. Anteverted uterus. The ovaries are not visualized. Cervix: Closed, 3.6 cm Clinical age: 14 weeks 3 days Clinical MONIQUE: 12/11/2023 US/US OB <= 14 weeks fetus IMPRESSION: No suspicious finding. Electronically authenticated by: BOBO LIZARRAGA Date: 06/15/2023 15:17
[2023-06-15] MEDS: ACETAMINOPHEN 500 MG TABLET 1000 MG PO (14:04)
== END 2023-06-15 15:00 | disposition home or self-care (01) ==
PROVIDERS: Emergency Provider Emergency Medicine
DX: O26.892 Other specified pregnancy related conditions, second trimester (principal); R10.9 Unspecified abdominal pain; Z3A.14 14 weeks gestation of pregnancy
CPT/HCPCS: 76801; 99284

== ENCOUNTER 2023-07-01 22:11 | Outpatient (REF) | payer OTHER, SELFPAY ==
[2023-07-05 13:10] LABS: Age Gdln ACOG Testing Note (.); IGP, rfx Aptima HPV ASCU Note (.)
== END 2023-07-01 22:12 | disposition home or self-care (01) ==
LOC: LAB 22:11
PROVIDERS: Visit Provider Physician Assistant
DX: Z01.419 Encounter for gynecological examination (general) (routine) without abnormal findings (principal)
CPT/HCPCS: G0145

== ENCOUNTER 2023-07-12 13:07 | Outpatient (OUT) | payer OTHER, SELFPAY ==
[2023-08-02 13:28] LABS: Gest. Age on Collection Date 18.3 weeks; Maternal Age At EDD 22.1 yr; Results Report
[2023-08-02 13:29] LABS: AFP Value 40.3 ng/mL; Insulin Dep Diabetes No; OSBR Risk 1 IN 6704
== END 2023-07-12 13:08 | disposition home or self-care (01) ==
LOC: LAB 13:09
PROVIDERS: Visit Provider Physician Assistant
DX: Z34.92 Encounter for supervision of normal pregnancy, unspecified, second trimester (principal)
CPT/HCPCS: 36415; 82105

== ENCOUNTER 2023-07-15 20:55 | Emergency (ER) | payer OTHER, SELFPAY ==
[2023-07-15 21:00] VITALS: BP 143/84; PULSE 86; TEMP 36.7; O2SAT 99; BMI 39.5
--- NOTE | 2023-07-15 21:07 | US_ITS ---
The [address] [address] Patient Name: TEE DESAI MRN: [id number] date: 2000 Sex: F Assigned Patient Location: ED.MAIN Current Patient Location: Accession/Order Number: [id number] Exam Date: 07/15/2023 22:30 Report Date: 07/16/2023 00:13 At the request of: JIM MANLEY Procedure: US OB placenta EXAM: US OB cervical length, US OB placenta HISTORY: pain COMPARISON: None. TECHNIQUE: Transabdominal ultrasound of the gravid uterus was performed for evaluation of the placenta using Doppler. Transabdominal ultrasound of the gravid uterus was performed for evaluation of the cervical length using Doppler. FINDINGS: Transabdominal ultrasound demonstrates a gravid uterus with the fetus in breech position. The cervix is closed measuring up to 3.3 cm. A trace amount of fluid is seen within the endocervical canal. The placenta is anterior, and there is no evidence of placenta previa. Subjectively, there is a normal amount of amniotic fluid. Of note, measurements were not obtained. cardiac activity is noted at a rate of 148 beats per minute. US/US OB placenta IMPRESSION: 1. Single live intrauterine gestation in breech position with a heart rate of 148 bpm. 2. The cervix is closed measuring up to 3.3 cm. A trace amount of fluid is seen within the endocervical canal. 3. The placenta is anterior without evidence of placenta previa. Electronically authenticated by: Jones PEPPER Date: 07/16/2023 00:13
--- NOTE | 2023-07-15 21:07 | US_ITS ---
The [address] [address] Patient Name: TEE DESAI MRN: [id number] date: 2000 Sex: F Assigned Patient Location: ER Current Patient Location: ER Accession/Order Number: [id number] Exam Date: 07/15/2023 22:30 Report Date: 07/16/2023 00:13 At the request of: JIM MANLEY Procedure: US OB cervical length EXAM: US OB cervical length, US OB placenta HISTORY: pain COMPARISON: None. TECHNIQUE: Transabdominal ultrasound of the gravid uterus was performed for evaluation of the placenta using Doppler. Transabdominal ultrasound of the gravid uterus was performed for evaluation of the cervical length using Doppler. FINDINGS: Transabdominal ultrasound demonstrates a gravid uterus with the fetus in breech position. The cervix is closed measuring up to 3.3 cm. A trace amount of fluid is seen within the endocervical canal. The placenta is anterior, and there is no evidence of placenta previa. Subjectively, there is a normal amount of amniotic fluid. Of note, measurements were not obtained. cardiac activity is noted at a rate of 148 beats per minute. US/US OB cervical length IMPRESSION: 1. Single live intrauterine gestation in breech position with a heart rate of 148 bpm. 2. The cervix is closed measuring up to 3.3 cm. A trace amount of fluid is seen within the endocervical canal. 3. The placenta is anterior without evidence of placenta previa. Electronically authenticated by: Jones PEPPER Date: 07/16/2023 00:13
--- OUTSIDE RECORDS SUMMARY | 2023-07-15 21:07 | XMS_ITS | CCD ---
Author Organization [facility] Care Team Providers Care Body Mechanic Name Role Phone NON STAFF Primary Care Provider LAURA Kraft Emergency Provider [phone] NICOLE Ricci Emergency Provider DAPHNIE ., DR ALEXANDRE Attending Unavailabl e KARASIK ., DR ALEXANDRE Admitting Unavailabl [facility] Unava ilable KARASIK ., DR ALEXANDRE Consulting Unavailabl e LAVINIA, DR CHRISTIAN Doyle Consulting Unavailable KARASIK ., DR ALEXANDRE Consulting Unavailabl e KARASIK ., DR ALEXANDRE Attending Unavailabl e [facility] Unava ilable KARASIK ., DR ALEXANDRE Admitting Unavailabl e ANGELA SCOTT Consulting Unavailable DINA, DR ANA Dennis Attending Unavailable DINA, DR ANA Dennis Admitting Unavailable [facility] Unava ilable DINA, DR ANA Dennis Consulting Unavailable BOATENG ., MR CUADRA Consulting Unavailable KARASIK ., DR ALEXANDRE Attending Unavailabl [facility] Unava ilable KARASIK ., DR ALEXANDRE Admitting Unavailabl e KARASIK ., DR ALEXANDRE Attending Unavailabl e [facility] Unava ilable KARASIK ., DR ALEXANDRE Admitting Unavailabl e KARASIK ., DR ALEXANDRE Consulting Unavailabl e JOANNE HUDSON Consulting Unavailable GAVIN ATKINS Consulting Unavailable [facility] Unava ilable KARASIK ., DR ALEXANDRE Attending [...] KARASIK ., DR ALEXANDRE Attending Unavailabl e [facility] Primary Care Unava ilable KARASIK ., DR ALEXANDRE Admitting Unavailabl e KARASIK ., DR ALEXANDRE Consulting Unavailabl e ANGELA SCOTT Consulting Unavailable KARASIK ., DR ALEXANDRE Attending Unavailabl e KARASIK ., DR ALEXANDRE Admitting Unavailabl e [facility] Primary Care Unava ilable KARASIK ., DR ALEXANDRE Consulting Unavailabl e KARASIK ., DR ALEXANDRE Consulting Unavailabl e KARASIK ., DR ALEXANDRE Attending Unavailabl e [facility] Primary Care Unava ilable KARASIK ., DR ALEXANDRE Admitting Unavailabl e WEST, DR CHRISTIAN Doyle Consulting Unavailable REQUEST, DR TYSON LISTED Consulting [facility] Primary Care Provider Unavailable Primary Care Provider UnavailOneil Mendez Admitting Unavaila ble Oneil Salomon Attending Unavaila ble BLAKE, ROBERT R Primary Care Unavailable Martin PAC, Errol Maldonado Attending Unavailable Martin PAC, Errol Maldonado Admitting Unavailable DORA JASSO Admitting Unavailable DORA JASSO Attending Unavailable Alaina Matta CNM Attending Unavailable Provider, None Primary Care Unavailable Alaina Matta CNM Admitting Unavailable Adamaris Jaeger PA-C Attending Unavailable Provider, None Primary Care Unavailable Adamaris Jaeger PA-C Admitting Unavailable Yassine Maldonado Admitting Unavailable Yassine Maldonado Attending Unavailable BLAKE, ROBERT R Primary Care Unavailable Mamie Moore Admitting Unavailab Mamie Menchaca Attending Unavailab ROBERT Montes De Oca R Primary Care Unavailable Yassine Maldonado Admitting Unavailable Yassine Maldonado Attending Unavailable BLAKE, ROBERT R Primary Care Unavailable Tom Smith Admitting Unavailab Tom Canas Attending Unavailab le Provider, Unlisted Primary Care Unavailable Provider, None Primary Care Unavailable Anusha Palomo Admitting Unavailable Anusha Palomo Attending Unavailable Provider, None Primary Care Unavailable Nelson Sharma Admitting Unavailable Nelson Sharma Attending Unavailable ROBERT MARRERO Attending Unavailable ROBERT MARRERO Attending Unavailable DAPHNIE CR Attending Unavailable Allergies Allergy Classification Reported Allergen(s) Allergy Type Date of Onset Reaction(s) Facility (1 source) Alfentanil Drug Allergy [facility] Repository (1 source) Azithromycin Drug Allergy [facility] Rep[facility] (4 sources) Adhesive agent Propensity to adverse reactions to drug 3 [facility] (6 sources) Azithromycin Drug Allergy 2 [facility] (2 sources) Macrolides And Ketolides Drug Allergy 4 Unknown [facility] (2 sources) Wound Dressing Adhesive Drug Allergy 4 [facility] (1 source) Adhesive bandage; Translations: [Adhesive Bandage] Propensity to adverse reactions (disorder) [facility] Repository (1 source) Azithromycin; Translations: [Zithromax] Drug Allergy [facility] Medications Current Medications Medication Drug Class(es) Dates Sig (Normalized) Sig (Original) [id number] 200 actuat albuterol 0.09 mg/actuat metered dose [...] Coding Summaryon 05-31-2023 Coding Summary HTMLBase 64 SrcdifhoFEa9nTf+PGhl YWQ+MM8RFPQdV25taYDy kW8dR9DQOChFZhkmWQDN IIxGTzHfozYhGS0zxJIf ZXJu IC8+NE1uORFaJpbnoXUu j4I8nPJ7D09dcr0pPCwz zXW9QUYpKcAmkbhbz5sp cFf3QXhwBthyBiAn CCUtaJ83DSU8rB43Xy85 gPGntYBxz0svrAt5InJl VLUjLHK8yMihEVelk2Ig MINcQ17enKSjg2X4 IGNvbGxhcHNlOyBlbXB0 xE1mPFtivygea5jnfpgl Iyv8gx41zRVxg7E2bVQ5 E0TgerV4YOZxtWLf OcxzbQTYgN4cybdue2oo usknKlIfOBMdVQk2UCc8 JMYhzSbtSqJjGM92BPD6 LLBdcwJnO2MpNZAl bLteEaE4z4L5Xu2QK1QB NormZ0TLABPDQLdmxUK+ YK58ae60P4RuOcapMsr6 EBRmLRW7dCH9tF0t MXShMWspm4J7bOO1T5Yr jqRjpn7do6mbQQBhUNoq M83dnNBrh5E5XNGenYE6 GELmnXugLoQvpP59 Oyc+ONRxqPzdr5QoBtor f5skv1hnmLd0IvzoNNTu orUosZzxGRU4i2ErTl4n TOAfbHS2mSM3iS3j NyRdBqF9MOmhW998ImEk rNLwRaxkB57wI3FmiOJ+ RRJkAbg4HJVrlZvkNA1l W8MfIGLrcpfpgBEh vKalBG7gHSKgwuphCXJr jY2qWHNmN6h9JiWqQzR4 UBbmK5CdHKPpjjqvEv00 wD4nIjJtHmE7YMay T9TalsW4CQGsjKRaOHyw LKP9S84at0N7VPCbGIIx ESY5rSC6fH1tdIbggxeh bGVmdDsgdmVydGlj HMhhBOrcL109MXPjiVgl PkNvZGluZyBEYXRlOiAg MDIvMjMvMjAyNDwvdGQ+ ERRxTRA2rFbgCESd iLWsGHaqAd4xjAdeqBep GF3hUUXpzodlGSTilA0v LAOwyRByqLnmDP8jZQQx bsrpy501PdQsGSN6 LCCsmFPhH0RulH7yArRs LYXjXMNlW2SvjGHdERvy L316JWxlYzD4UWErbtLi Z0SdLCMkaAshRgK0 j0R8Ji5Az8EihvejK8Tz cLXtOvAdZavyURi7A8Es PjwvdHI+YQ24KOMeMH12 ZGi0WCP4hQltWDxa XYBdS2OxwU0pQyFzJXJa ZGRkOyc+PHRhYmxlIHdp ZHRoPScxMDAlJyBzdHls KZ5gNx3qKAVkSLAd aXsbzYUzHgBpl3ktDZOh ZCnhZI5lpBnpO2OeiLH9 UNPyk7t7En73M67uB2Lp dXA+DSZkgJZ1rTK0 tW8iNoGbHgX8NFwrY673 VgLysMGxFpjef8knv3hi yJo5EnQ5EUMpylTnpEbf SGY3w8UbWs06B43o IHdpZHRoPSIxNSUiIHZh aEkykq8dpT1cLe2+PGNv dYB9oWK7lF0mOyFkMoO3 JYdkF287LuYtqUYx Sycuz9sgf8mlfTx2HvCs MMCqlnRnyYkhCYJ7i0Wq Du70S3ClsQetk5KfOyq4 dl07gDYcy3J6kFB2 F2EfKADawlmeaLGpfZcf JG6eWSGmlfklOLVvnO1d VQBzM7r4HaIiWuX4IHjb U7KgleN3LFBrrMTe RIFybSWSiY8xcnnkv3ph byqlOpYxBMUcALr5BQi5 MUWbdQppZuWiZLW7OgU9 BMD7yXXrfG6ngKpr zfszuS7nUpz+DCX2yAGy aCVUTN2cSowdnOW+PHRk IPH3uJpoAAszJZGxnG8x KSWlS3z4VaPwQgB4 LHtgU7OfkwZ2EQWkkJUl NPTkdWAHsC9eftfsu7vs ntxmEeBaDZCePIz2YVb3 LWFsaWduOiBsZWZ0 InA3EIM3fQKntG6pxVjy xsoldG0tFif+QmlydGgg HXK5KVl4Z4TiRim3PWGo dPhlQJ6qzAIsRWue Ps9quShsgYenGN9cIILr xiiey568ZeWha5jhYNPd hKVzGZmpOIK5G82ee0D9 LVYyVAHcMTJ5bSU3 uO7hhBrmcltkdNGduTkk srAvlAghVSvpOCbxV708 AFWrpWxrMwSoHZc2R5Td Kdh8VURiwNhwHG3h zTImNOcsSj6saQxmgRbn PD6fWAYfiierx230IlCq t2abNVGdkLKuLTsgZPW8 V98vv3W8WCRbFCTs QLX5yNM0kJ7dyHfjiplx bGVmdDsgdmVydGljYWwt QOohY739OYFxwHkhAcQy vFx9Z3RbGru9DMTg xMpmYP0cwLDqQKxmGr7m sBjtbWbmYS2yKKKokhva z039PcNkq0giKJMnaNRf JMzjEDB2H96nm2E3 VLDqEXMuEPE0vPW3kO2e bGlnbjogbGVmdDsgdmVy fSvjOAnqICkyH165EQTg cDsnPlBhdGllbnQg ADxjUKl2L1ZkEwsegPO+ GL43LGEpFC09cHPwrOIs w3jhiCk2TxVgUKAvWZP4 pEtyNXllz1EvWEQx S66qdCYui1M1ZSZleOrf iTVfEoZsiUZ8pJ8kLKnl upymj0qprbmrSypls8uk sy98bN51B64iTFjh ZHRoPSIzMCUiIHZhbGln pu6quY8rUz5+PGNvbCB3 uVQ1zC5iTKJlXkK5FGee H258GtXzwYWxCtut z0fjp7umvPk9UtZ8ALPq liXcpJoaPZD8r1ViTe17 E21nGHonQWKoIVLoLBSg BFZmdLlxsj7bbS0k Ii8+RIPwtRX8mRW2iV5q IxTsUbX4GYnhX985IjZv kSDnCvwnM16yS3TdtNE+ VJLbZfr2NFCugJny FB0ifCGnBZfiIa9hCFN0 HgZzRoYtBOltQ6XkDMMp zudjhnsglXL5IBDhPNAo oF28Tu4ysPkfODNs pOWTwY3andgnt5qhcxto UwBnNGHjNBi3LZc1EVWe qNzoXaJuFIV9WpN5PQV1 sSCsfI8hdJuwzefn kI0xY3VaKEAbywoyAx39 tF7cLvVlCiN5XMvaNvj+ E7uPZuUREQxbV5wJVJWB UKxLFE4WUYbfsXV+ RASyWSR2sIrwLHfbEFDi oI9wTBCrE6j4XtDiLfA5 GRutE9AkWBVwiwvhOu82 hZ8kDnPsHaH7PDge V5KiwwS3HJFnjEZyWCup TRC7Q32zj4A1IDAnDHQl YQH9jDX9hA4mmZxegmug bGVmdDsgdmVydGlj WOhpJPwkU928YTOhzEhi McQ4HlPuIoDoMKZ5Z1Qn Rsd6OCIhlJkiGU2wqPGs YIjcHk4pwXiooErh LD1fQFBrddgbUQSjbJ2f SKEzfMMlwRqrEI3sQPCb cpmks325YpBjNNW8LPDy aZLuP0XidG0sOfPa BIDlJVRjE7EiwWJdBFyp Z149BEusRnL8KCPlazGg P2YhYDJanJxhTpN8m9N2 Do1nIGQASZQzfall dGQ+RAXmSKF9vAndTQsd VRSzuI0xIWDzE2f6HdWx GlN2TYnkO1FfDDRxdnsc Yt31fX4cBoYvEuM3 ZZsxN2JpijQ2FFPozACi IItuBRE2D37tt4J8RLWp PPRzHUR7sBQ5pJ2haJyq bjogbGVmdDsgdmVy wHjtPWwiIFenN301ZEWi cDsnPkZFTUFMRTwvdGQ+ DVHhHJW6zUnwBSrzZTGc dJ2cDINbY1c3RpLz EkW8FPzeU4VlJSOvrtkk Hs12nQ0iYcEpKxN2LJzx O0LjurV1LOYlcUZhGGjk UES7K38qs5Y5EXPh RAPoAIO0uQA0sF2klIvg bjogbGVmdDsgdmVydGlj OHosHGyaI043WEIbhWlx IuWrEPVzRJ2yqVte dGQ+VM17aa01K8VhSkyz Gqv7JBWpACU5vIH4wK3x TINbWMgis5P5dMO2L5Qu lgYplv3jr5pwVTNb OStnK39tpAXgn2E2ZSNa kNG0OCFonZohWfBqyE54 Oyc+DBMjdEcic2BlXker b4csq1htzKd0QeIa HCQshzYntDtyFJE8o8Dn Yt49C48qWXtgHTFbKKZu DBQhFTLodAlalf3ipU7c Ii8+VFLseSK1jZD8 vZ1fFxJvJkI1JLehK970 LmFwgORmRuesk2bld2fi rBp2PuStEBLcawPvhQyn NYW2r8BaAi43Z6Nc tEeye2GqJsu7su71dZVe y4J7mLP7S0HsPOOmixwb bZAxuJbsRX0bCTTgarjo XDWsbA5mAERgP7j6 RxVsDkL8ZImwR2JfwsX1 DETruGOaAYKpbQNHxX2s wopwu7rqrapmKgBsVVRm QCl5ASv0TPUsdUce HjGpEBE6PqX3SMR9aVNm bA5vdBnkslahcW2dFul+ PAy7l5xjjFVqOT5bjJQ8 QB83ZD70sVJuc7Q7 bPL9W5CsOCNrzpadckwi lQB9SADzWCOkgI28Jf9z mNfjLj4oWZTyGKQ2OYVv lXXhX7TyaZ6rUxIv JOIlJRNqT4CedNXyIIwx Y977TDpbKbO1KQGjykTq T1WiZQLdpZabUoZ0l2S1 Ch1XWY71QW69WN24 qYTko3D0oDZ0H7SbRGBt pwnpammsaZB6KGZcIWFq yB62Xb1gwPnsOr4gYKSv QKZ8GBKwdQUmF5Hb yX4tGvLwOTNwZTUlM3Qp sHRzKRdbT932NOavTbL9 BVHgrjDsJ1LnBKVitXrk AbC7d4D0Eq8RIs81 VZ02GE99bLIhk7B7hTJ4 A3HhDQEethqckzcupRX1 WLSmRIBxeI42Mz4ugQnz Ew5hDTWcNVP3NYSb qOYzC2DxdQ4iXcWdVMYf UKYyB4OyqVBnBIhgO307 GNrdIkN0WPEvewQyL6Hk FSXchZizNqX8e0C1 Al1GQUxvnks5K3QiYrqq dHI+EC13WKUzJZ05kZWk hBSmf1ohcQy4ZeFnWYOq GYK3zFfhMRpsm5Dl ZXI (more content not included)... [facility] C Throaton 05-28-2023 C Throat Ordered by Radha. Normal throat jonny isolated No pathogens isolated [facility] Comment on above: Performed By: #### 1 [id number], [id number] #### [facility] (DEFAULT) [address] [place] [address] .QC SARS-CoV-2 (COVID-19)/Fl u/RSV (GeneXpert)on 05-26-2023 Internal Control Pass [facility] Comment on above: Order Comment: Order ed by Radha.[[email or web address]] Performed By: #### 1 [id number] #### [facility] (DEFAULT) [address] [place] [address] COVID/Flu/RSV (GeneXpert)on 05-26-2023 Flu A (GXpert COVFLURSV) Negative Normal Negative [facility] Comment on above: Performed By: #### 1 [id number], [id number] #### [facility] (DEFAULT) [address] [place] [address] Flu B (GXpert COVFLURSV) Negative Normal Negative [facility] Comment on above: Performed By: #### 1 [id number], [id number] #### [facility] (DEFAULT) [address] [place] [address] RSV (GXpert COVFLURSV) Negative Normal Negative [facility] Comment on above: Performed By: #### 1 [id number], [id number] #### [facility] (DEFAULT) [address] [place] [address] SARS-CoV-2 (COVID-19) RNA MILY+probe Ql (Unsp spec) Negative Normal Negative [facility] Comment on above: Result Comment: Perf ormed by PCR methodology. Performed By: #### 1 [id number], [id number], [id number] #### [facility] (DEFAULT) [address] [place] [address] ED Clinical Summaryon 2023 ED Clinical Summary [facility] - Emergency Department [address] [place] [address] ED Clinical Summary PERSON INFORMATION Name: LIA DESAI Age: 22 Years Sex: FEMALE : 2000 MRN: Acct#: Visit Reason: Diarrhea; Fever; Headache; Throat pain - Adult; Body aches; HEADACHE, FEVER, BODY ACHES Arrival: 05/26/2023 17:02:55 Discharge: 05/26/2023 18:57:00 LOS: 000 01:55 Check In: 05/26/2023 17:02:55 Checkout:05/26/2023 18:57:00 Address: [address] [place], [place] [address] PCP: ROBERT MARRERO PROVIDER INFORMATION Provider Role Assigned Unassigned Yassine Maldonado MD ED Provider 05/26/2023 17:04:17 [place] PET ADOPTION COUNSELOR Nurse 05/26/2023 17:19:42 VITALS INFORMATION Vital Sign Triage Latest Temperature Tympanic Temperature Temporal Artery Pulse Rate O2 Sat 97 % 97 % Respiratory Rate 16 br/min 16 br/min Blood Pressure /71 mmHg /71 mmHg MEDICAL INFORMATION Medications Given: Allergy Information: Adhesive Bandage; Zithromax PHYSICIAN DOCUMENTATION DISCHARGE INFORMATION: Discharge Disposition: Home Discharge Location: Home PATIENT EDUCATION INFORMATION Instructions: Hypertension, Adult, Afgt-zc-Fwlh; Nausea and Vomiting, Adult, Fvwc-ba-Fvsm Follow-Up: With: Address: When: ROBERT MARRERO [address] [place] [address] Within 3 to 5 days DIAGNOSIS: 1:Nausea vomiting and diarrhea; 2:Elevated blood pressure reading; Diarrhea, unspecified Patient Understands: Yes - Patient/family/careg iver verbalizes understanding of instructions given Comment: Normal [facility] ED Patient Summaryon 024 ED Patient Summary [facility] - Emergency Department [address] [place], [place] [id number] PATIENT DISCHARGE INSTRUCTIONS Patient Information Name: LIA DESAI Age: 22 Years Date of : 2000 Reason For Visit: Diarrhea; Fever; Headache; Throat pain - Adult; Body aches; HEADACHE, FEVER, BODY ACHES Arrival Time: 05/26/2023 17:02:55 Primary Care Physician: ROBERT MARRERO Attending Physician: Yassine Maldonado MD Comment: Visit Diagnosis: Diagnoses This Visit Body aches ([id number]) Diarrhea ([id number]) Diarrhea, unspecified (R19.7) Elevated blood pressure reading (R03.0) Fever ([id number]) Headache ([id number]) Nausea vomiting and diarrhea (R11.2) Throat pain - Adult ([id number]) The Pharmacy at [facility] is open Saturday through Saturday from 9A [...] contact the Mental [facility] Recovery [facility] 29/10 Crisis Hotline -Text 4HWIB ie [phone]. If you received any narcotics, sedation, or [...] With: Address: When: ROBERT MARRERO [address] [place] [address] Within 3 to 5 days Medication Information: The exam and treatment you received today in the [facility] Emergency Department were for an urgent problem and are not intended as complete care. It is important for you to follow up with a doctor, nurse practitioner, or physician?s assistant teacher primary for ongoing care. If your symptoms become [...] so we can reach you if necessary. [facility] Emergency Department has provided you with a complete list of medications post discharge. Please inform your primary school teacher librarian/provider of your visit and for further instruction [...] pressure an (more content not included)... Normal [facility] Strep Aon 05-26-2023 Strep procedure control Pass Normal [facility] Comment on above: Performed By: #### 1 [id number], [id number] #### [facility] (DEFAULT) [address] [place] [address] Streptococcus A Negative Normal Negative [facility] Comment on above: Performed By: #### 1 [id number], [id number] #### [facility] (DEFAULT) [address] [place] [address] Coding Summaryon 05-20-2023 [facility] HemcjjypCJb0eTs+PGhl YWQ+IH9SVKNvJ68xsARl tP6kQ0LYZWfEQfznIATM UEvLHnHkaiRkAJ0svFBm ZXJu IC8+BP5jRFGzJisueFAa h3X1eUP8G10oyw7gXUrm xQA3CHNcNwQmbfpdb6vf nSd7DMpwEqoeDxVt IFMhnV84EHB8lH45Cw74 pRIvoZXcw1xxeAy6ImLb FLFyUEO8wGayOBuqr5Ur QKItT06iwULgt1B0 IGNvbGxhcHNlOyBlbXB0 jR3lHUxnchenj1auhlib Oxq3lz85iSNbl5D3mFQ7 W6LrkrF7HHSjaCTr IngwbHKQyJ1eqesmm9rd ddypZvKrMTXmZHb4PZg1 CRWwiTwoPpJmTY89AOU7 PXWdpcNaD7ExQXUd iFmiTwZ9s0Y4Ku8DU3QN KulzA2TGIWCNGYxupWE+ NN20ih96K3XyYeidWgj3 FGGoTSH3xSP5oA3s VORxFYgcu4F5pZV2I8Mt slUtej5md6mdMNVgPDez Q26wpTJds4Z9TXTtgXJ2 RSUotVphXyGwwQ27 Oyc+PLZulTtsn7AuQvne b6ddd8jyvFu3VuhdTGZg wlZiaCveWSE6p5HyHl6y STAowHM2kOU2jH9p PxAiEsG1PFodO335VfIk jILjQbcwB90hB3LifUX+ VJMzVkp3ESQrnWeqLS6d K7AqNJNnsxnjvTWc zXqtQD2xCAUhwefwJJMc gO6fVIGiU1u5SjFcDbN7 IXxvN0IbFDVgwckiLy07 nG9eFoZkYtA1NUvf N2OauwZ5OQVwnWVpOAwl EPT8C26ww4Y6TSPhQBOo GOT2oMR2pR4qsWdatbpl bGVmdDsgdmVydGlj VVmgEMysV726SUTqiQqm PkNvZGluZyBEYXRlOiAg MDIvMTIvMjAyNDwvdGQ+ EUVlJPS1zXbwPWTe mMWeEXxvTk5ojQvetLam DW0mFKCsmgbiHPUubU7t EUIciTHxkCgfFU3vBYXj wikhv245EvYuAXB8 QRYgmQFpE5BbxJ6dNoWt ZAWsBAKrU6CfzDXwRByp A183YNyqSoF4JPKlzaMu E1EyGETqcNlmBzO9 d7O5Uz1Kx3TwpentK1Bx sQHqByLsVqebSPe4F9Xc PjwvdHI+EN85LZEfPB50 LAd4YGY8xMmdWIgr RHXrA5HcdI0wDoBgUWOr ZGRkOyc+PHRhYmxlIHdp ZHRoPScxMDAlJyBzdHls JO2hUz1wSPLlSPTr kEhzvVOrGpTjv0xnMLKw MCdlKU8yoAorH6FnbEP0 TQEip5h6Jm32V01rX2Ya dXA+DUIlgGL4rFP6 vB1pLbAcTgR1WSiaT949 IpQfrNCfHlnmm8yup9jy tYv8HwN4OOQduhZskJih STQ2v8LkCd22B30t IHdpZHRoPSIxNSUiIHZh qEioar1vbL9pXn7+PGNv bZB2uKI7oA8yQeHtLmB7 GFrrQ048EcUloMBl Jagij8bvm8oraPb4AzYj SGQiavTbqXyvSYL3b0Gy By84C9WilLoip0EsVja3 wo87oAVix2F1lMV0 A9OgBJEzaxndxVNmzJpf VE5lXYNvvqqaFEGcoQ1z VMFfI9m9ZxQlFaG6CVid L1DxlmW2IALsuBLe VQMqxSSFhA8rcmcwx1xv cwwoWvOwSLYeHFh1MYm4 XHPheKhaNqDaSQK1CzF2 AXC4pTFooV8xeUyd jinxjJ2qQpp+JTX1tHNx mWOEGY7rHspmhMO+PHRk XFT7xHxcTKnuPNSvyH9k XYKbA8v2OgOrWqK3 MBjmM5WdojF1QVNksXRd XBVazSTYoM4gqbjsh1mc tgzdEgTcSLDbZDb3DSf0 LWFsaWduOiBsZWZ0 KvA3OJI2tJWffM1ohGaa hdxsvK1gYbp+QmlydGgg ILA5TJk5D7BqOzl3MZDm rErtGH9hsBCbNJbv Yo3hkVncpEmaPV5jWZBf grfof193OfVjc6tqTRHw pVOnGZgaRJG2W27br8D3 SQNfKUTgOLT5qNC0 mV2gkNhdusvhlADvsThv xhHysCvpULljBGzwI334 FZSknGmrObAkEYu4U0Zc Eer2RAHfdCinGT1p qWPiNDglZw8kbJwcfPpa VF9yDUVajoskr589UqOx v3hhNKTiwTBcGDtrEWH8 U40ot1Q6ZRNrQNTa KAA3iMA7uD0epBmyrlmv bGVmdDsgdmVydGljYWwt CTvwF779VESvzQmzBcRc gTd4Y0SrNwb5FQBv xEwvHQ9xhGDwAVquKm3u sSpppDnjJQ0oSNPfxmab v030FsShi8abCKZanRMu QDejMXS6C41yx0W6 CWGsACUkPYB8hMY2wP5g bGlnbjogbGVmdDsgdmVy kBauNDezIGkiB979VBKl cDsnPlBhdGllbnQg JElnMQe1T2NgFlblyUR+ IL68DBVqDT99vKSgfXUg s6vgjFp1EuKlWMKeXJI7 dFgiSQsgk5XzBKTw H45mbVIbz0M6FMHciQba aJAzCoVcvYQ8gM3hPQtn wlnrz5kgsxknKjeew0wc in51jE04W05zWSls ZHRoPSIzMCUiIHZhbGln vs6fxN2rOm7+PGNvbCB3 xJW3xH2dEUYuLgF3DLje H009CbWknQIkOtkj s4odg1rpjAl9VdP0WEYc ebTjvLfdJRA1j6CvHb17 U65rOZwrNZQmJCFyWOUr ABEciFnrjv0itB9y Ii8+RLYifIB6rGB1aX5v JwFoFkS1JWebB235RbVb bWQhXlmqW14wP1LorVR+ LNKmNxm3KNIqxLol TJ7ihAXgYCkjAf3xMRX1 CmCfIuVpUHmoA1VeRQBb jzebjcvhwKN4VKOkYHTl mE94Sd4hxSmhXYRi nTHOfS0hxowwg1jdxwts HdTxAXBcVNa8SBr6WNHx uRcnGlMhVUR7BfM1JQP2 pLXxuX7oaEjoljop oN4yW7TwCERbopruXi09 gS7qTyWjAgO2GNtkWrn+ Q9hEWaQEGZeqU1vNURPR NKaAUR5JURnvlTA+ SMDtTUX1dXbaNYefPMXj xO4wKUErX7b2AaWjJyG7 SMkqZ5PcVUWbevzkCd87 lF3qCpJaEmH4CNno S9JwbzC9QCMnfKOtKGtx XZP8K37lg9Z9GHHmZJAs AWC2nDM9cX6dmZoznwbo bGVmdDsgdmVydGlj AHztOKnmD274LGXqqMto AxW1XmAtEcLhSZG3J8Vn Fxj1GUKavPexEE1jbBOe TMxiYg9fhQkneLcp GU9xATKvxxqjGERckS0z PCXxgJZreBpgGV0uIQWp cumdf516EmTtOYB2IIAo wBThF2TebP9sReEm OPOjBPKhN8QwkCOnEWri E455RImnUcG4LLRmcyHh F7LpTLVfeOwfYeD7t2Q9 Uu3hIMWJIKZzvljv dGQ+IBKzSVF9nFeqFTsn HCMszW2rYXTyZ7x9OsTt FjR2KFfoW7DxNQYgxppq Hl82yN1aNpZwDlW5 PYixT9IrmiL7GFHxrBKn PAprSQR8B00zc9L5LLVt CDWzMSR9yUJ2gK4ynGlv bjogbGVmdDsgdmVy rEizBHhyINyqJ899LTJg cDsnPkZFTUFMRTwvdGQ+ BKUoREE0bGhdUFmqPGDa wR6tRVXaZ8n3TnNv KcM8DLsfE6KlRFKyjypy Yl46iL5jTxBxHlI4YJyk M7OtecK6YSVvwGPbKKai SDL7W87es2F8YNDz VWNsORV6aAZ3eV2woTja bjogbGVmdDsgdmVydGlj ZLhbQSoqR355QKNzoKnp ViEwRTIrGL4nfImq dGQ+YE38yl36A4VoIxil Ncb5FJXyCCH0zBP1lP0a CJBkIVapo1J7yYF5S0Hh hhLqur8il2ebHFKe ROpcS23uwZXnq1R9OPKg oUD1OIAziCsuZjMmeD03 Oyc+XURwyHpji9UyNxhm z2nes2seaAw0AsCs YMFjwfTopCmxVME9e8Gz Sf24O38oUVsqSHMvUDSm BGSjUUCpiXlsev9fbR6q Ii8+XWXarPU2tXG5 rR9yUgRzYlQ2XXpuZ875 PkOasMVwFmksi8ead9rb tJp6AdBmSYEqncLriMrl XUO8d5HfLy66L7Um bImrt6PfFoj0ls49bJFf d9X6tKK7U4XzKQPwqmwe yDFthMibTU7mXXZmghkc GFElhR5iBRYaY1v0 BqWaCkA8KMtfD7VigaS0 RPWuyCDmPBWnaLRUnM6y bknst8bakxvuGbRoPTBl LDk4JTp3PTCelQgg UdOjMHY8KkT3OWD6vJNs mV7cuVxigibrrN5kNfa+ QFq6d6jzfDBvQF4gaOC9 YH62DI82fUNrk0R8 hRZ1G5PlANNtnujzexbt iBE7WOScOGXqtZ64Qe5m jXhnYg5eRUXsKYG8AJMd aQTyX9EsqD7wSdDx QEKvVXLzC2RcgPFrNRcg S485AExqLiS8UAPuavWo I5FlOLQmcLefCuT2v9H3 Pj6FPP93TY61GH83 oVFxf2V1iTF2U4RyVYLh xtfdzplxfTE7XAZpTJOa xD51Ge6yqRukKj2bNXUt PQP2AZXmfMLdU0Ck mR1cZaZbCODiMYPtI4Yh yPBgQBdqM162BEwbWmA1 VPBfcvYaE6UwODObeNnp XyD9n2S0Zh3PZk73 VV55GE14iXZkn0Z7bCC2 N6QlDIUrjnlxvusflQK7 SNBqKWCvlX44Rj9fnXfk Bi2aBGLhTWQ1GNTl xIPiR2SdxW1oGdKsJDLm LSCgV3XzzUQwNXaxU309 BCejOoA4PMDrvtAoI0Zt ZBGuuFnzTbY1a6F6 Wd9UDEzdfcg6U0NhPwre dHI+KV80VVMcBC30fCCp oMXzm9zjpLc4GtJxOOLx PEI0dQpzRQuuk5Vt ZXI (more content not included)... Normal [facility] C Urineon 05-18-2023 C Urine Urine Culture ordered as a result of parameters set on specific urine dip and urine microsopic results. 15,000 cfu/ml Corynebacterium species (DIPTHEROIDS) Normal skin jonny isolated [facility] Comment on above: Performed By: #### 5 [id number] ####[facility] (DEFAULT)[address] [place] [address] ALL CBC WITH AUTO DIFFon BASOPHILS ABSOLUTE [...] EO # 0.1 [facility] TBH PLT [address] [facility] RBC 4.30 [facility] WBC 9.3 [facility] .Auto Diff 05-15-2023 Auto [place] % 8 % Normal 04-19 [facility] Comment on above: Performed By: #### 1 [id number] #### [facility] (DEFAULT) [address] [place] [id number] Baso Abs# 0.1 x10 Normal 0.0-0.2 [facility] Comment on above: Performed By: #### 1 [id number] #### [facility] (DEFAULT) [address] [place] [address] 26793 Basophils/100 WBC (Bld) 1.0 % Normal 0.2-2.0 [facility] Comment on above: Performed By: #### 1 [id number] #### [facility] (DEFAULT) [address] [place] [address]32 Eos Abs# 0.0 x10 Normal 0.0-0.4 [facility] Comment on above: Performed By: #### 1 [id number] #### [facility] (DEFAULT) [address] [place] [address] 68622 Eosinophils/100 WBC (Bld) 0.2 % Low 0.9-4.0 [facility] Comment on above: Performed By: #### 1 [id number], [id number] #### [facility] (DEFAULT) [address] [place] [address] 78[address] Lymph Abs# 2.6 x10 Normal 1.3-2.9 [facility] Comment on above: Performed By: #### 1 [id number], [id number] #### [facility] (DEFAULT) [address] [place] [address] 72339 Lymphocytes/100 WBC (Bld) 25 % Normal 14-48 [facility] Comment on above: Performed By: #### 1 [id number], [id number] #### [facility] (DEFAULT) [address] [place] [address] [place] Abs# 0.9 x10 High 0.0-0.8 [facility] Comment on above: Performed By: #### 1 [id number], [id number] #### [facility] (DEFAULT) [address] [place] [address] Neut Abs# 6.6 x10 Normal 1.5-9.2 [facility] Comment on above: Performed By: #### 1 [id number], [id number], [id number] #### [facility] (DEFAULT) [address] [place] [address] Neutrophils/100 WBC (Bld) 65 % Normal 44-88 [facility] Comment on above: Performed By: #### 1 [id number], [id number] #### [facility] (DEFAULT) [address] [place] [address] BMP Standardon 05-15-2023 eGFR Non AA >60 Invalid Interpretation Code [facility] Comment on above: Performed By: #### 1 [id number], [id number] #### [facility] (DEFAULT) [address] [place] [address] eGFR AA >60 Invalid Interpretation Code [facility] Comment on above: Performed By: #### 1 [id number], [id number], [id number], [id number] #### [facility] (DEFAULT) [address] [place] [address] Anion gap [Moles/Vol] 15.2 mmol/L Normal 5.0-19.0 [facility] Comment on above: Performed By: #### 1 [id number], [id number], [id number], [id number] #### [facility] (DEFAULT) [address] [place] [address] Calcium [Mass/Vol] 9.2 mg/dL Normal 8.9-10.3 [facility] Comment on above: Performed By: #### 1 [id number], [id number], [id number], [id number] #### [facility] (DEFAULT) [address] [place] [address]010 Chloride [Moles/Vol] 106 mmol/L Normal 101-111 [facility] Comment on above: Performed By: #### 1 [id number], [id number], [id number], [id number] #### [facility] (DEFAULT) [address] [place] [address] 21977 CO2 [Moles/Vol] 17 mmol/L Low 21-32 [facility] Comment on above: Performed By: #### 1 [id number], [id number], 5178510, [id number] #### [facility] (DEFAULT) [address] [place] [address] 67673 Creatinine [Mass/Vol] 0.55 mg/dL Low 0.60-1.30 [facility] Comment on above: Performed By: #### 1 [id number], [id number], [id number], [id number] #### [facility] (DEFAULT) [address] [place] [address] 20799 Glucose [Mass/Vol] 75.0 mg/dL Normal 74.0-118.0 [facility] Comment on above: Performed By: #### 1 [id number], 75530460, 2610736, [id number] #### [facility] (DEFAULT) [address] [place] [address]126 Osmolality 266 mOsm/L Invalid Interpretation Code [facility] Comment on above: Performed By: #### 1 [id number], 78061149, [id number], [id number] #### [facility] (DEFAULT) [address] [place] [address] 67819 Potassium [Moles/Vol] 4.2 mmol/L Normal 3.6-5.1 [facility] Comment on above: Performed By: #### 1 [id number], 14384647, 4284029, [id number] #### [facility] (DEFAULT) [address] [place] [address] 59258 Sodium [Moles/Vol] 134.0 mmol/L Low 136.0-144.0 [facility] Comment on above: Performed By: #### 1 [id number], 36837148, 9991248, [id number] #### [facility] (DEFAULT) [address] [place] [address] Urea nitrogen [Mass/Vol] 9 mg/dL Normal 8-26 [facility] Comment on above: Performed By: #### 1 [id number], 96376976, 8003695, [id number] #### [facility] (DEFAULT) [address] [place] [address] Urea nitrogen/Creatinine [Mass ratio] 16.3 mg/mg High 4.6-16.2 [facility] Comment on above: Performed By: #### 1 [id number], [id number], 2997628, [id number] #### [facility] (DEFAULT) [address] [place] [address] Breakpoint Chem Normal [facility] Comment on above: Performed By: #### 1 [id number], [id number], 5008708, [id number] #### [facility] (DEFAULT) [address] [place] [address] CBC w/ Auto Diffon 4 Erythrocyte distribution width (RBC) [Ratio] 12.9 % Normal 11.5-15.0 [facility] Comment on above: Performed By: #### 1 [id number], 26476349, 0543216, [id number] #### [facility] (DEFAULT) [address] [place] [address] Hematocrit (Bld) [Volume fraction] 39.2 % Normal 33.7-40.4 [facility] Comment on above: Performed By: #### 1 [id number], 38176314, 0197433, [id number] #### [facility] (DEFAULT) [address] [place] [address] Hemoglobin (Bld) [Mass/Vol] 13.4 g/dL Normal 11.3-15.9 [facility] Comment on above: Performed By: #### 1 [id number], 88493671, 9919614, [id number] #### [facility] (DEFAULT) [address] [place] [address] Man Diff? RBC Morph Only Invalid Interpretation Code [facility] Comment on above: Performed By: #### 1 [id number], 33485247, 7342174, [id number] #### [facility] (DEFAULT) [address] [place] [address] MCH (RBC) [Entitic mass] 29 pg Normal 24-34 [facility] Comment on above: Performed By: #### 1 [id number], 03251768, 7723326, [id number] #### [facility] (DEFAULT) [address] [place] [address] MCHC (RBC) [Mass/Vol] 34 g/dL Normal 26-37 [facility] Comment on above: Performed By: #### 1 [id number], 61568198, 0384796, [id number] #### [facility] (DEFAULT) [address] [place] [address] MCV (RBC) [Entitic vol] 84 fL Normal 81-100 [facility] Comment on above: Performed By: #### 1 [id number], 46816923, 1552030, [id number] #### [facility] (DEFAULT) [address] [place] [address] Platelet 228 x10 Normal 138-427 [facility] Comment on above: Performed By: #### 1 [id number], 97032978, 1841023, [id number] #### [facility] (DEFAULT) [address] [place] [address] Platelet mean volume (Bld) [Entitic vol] 8.7 fL Normal 6.3-10.2 [facility] Comment on above: Performed By: #### 1 [id number], 24208739, 9802804, [id number] #### [facility] (DEFAULT) [address] [place] [address] RBC 4.66 x10 Normal 3.70-5.30 [facility] Comment on above: Performed By: #### 1 [id number], 36789860, 3274223, [id number] #### [facility] (DEFAULT) [address] [place] [address] 05134 WBC 10.1 x10 Normal 3.5-10.5 [facility] Comment on above: Performed By: #### 1 [id number], 79587699, 8565959, [id number] #### [facility] (DEFAULT) [address] [place] [address] 16123 ED Clinical Summaryon 2023 ED Clinical Summary [facility] - Emergency Department [address] [place] [address] ED Clinical Summary PERSON INFORMATION Name: LIA DESAI Age: 22 Years Sex: FEMALE : 2000 MRN: Acct#: Visit Reason: Vomiting - ; 10 WEEKS , NAUSEA, VOMITING Arrival: 05/15/2023 13:59:38 Discharge: 05/15/2023 19:41:00 LOS: 000 05:42 Check In: 05/15/2023 13:59:38 Checkout:05/15/2023 19:41:00 Address: [address] [place] [address] PCP: ROBERT MARRERO PROVIDER INFORMATION Provider Role Assigned Unassigned Joelle Nava PET ADOPTION COUNSELOR Nurse 05/15/2023 15:05:55 Mamie Moore MD ED Provider 05/15/2023 15:56:16 Chrissy Diego PET ADOPTION COUNSELOR Nurse 05/15/2023 19:19:53 VITALS INFORMATION Vital Sign [...] With: Address: When: ROBERT MARRERO [address] [place] [address] Business (1) Within 3 to 5 days With: Address: When: Follow up with specialist Within 3 to 5 days Comments: Your PRESS OPERATOR ASSISTANT DIAGNOSIS: 1:Hyperemesis of Patient Understands: Yes - Patient/family/careg iver verbalizes understanding of instructions given Comment: [facility] ED Note-Nursingon 05-15-2023 ED Note-Nursing PT. C/O nausea and vomiting. PT. is 10 weeks with her first child. PT. has prescribed Zofran but has been out of it for 1 week. Pt. is scheduled for a Zofran pump. Pt. states that she has not been able to keep any foods or fluids down. Pt. is A&O X4. PT. has a steady gait. [facility] ED Patient Summaryon 024 ED Patient Summary [facility] - Emergency Department [address] [id number] PATIENT DISCHARGE INSTRUCTIONS Patient Information Name: LIA DESAI Age: 22 Years Date of : 2000 Reason For Visit: Vomiting - ; 10 WEEKS , NAUSEA, VOMITING Arrival Time: 05/15/2023 13:59:38 Primary Care Physician: ROBERT MARRERO Attending Physician: Mamie Moore MD Comment: Visit Diagnosis: Diagnoses This Visit Hyperemesis of (O21.0) Vomiting - ([id number]) The Pharmacy at [facility] is open Saturday through Saturday from 9A [...] drug addiction problems; contact the [facility] 29/10 Crisis Hotline -Text 4HKFJ kt [phone]. If you received any narcotics, sedation, or [...] legal documents With: Address: When: ROBERT MARRERO [address] [place] [address] Business (1) Within 3 to 5 days With: Address: When: Follow up with specialist Within 3 to 5 days Comments: Your PRESS OPERATOR ASSISTANT Medication Information: The exam and treatment you received today in the [facility] Emergency Department were for an urgent problem and are not intended as complete care. It is important for you to follow up with a doctor, nurse practitioner, or physician?s assistant teacher primary for ongoing care. If your symptoms become [...] so we can reach you if necessary. [facility] Emergency Department has provided you with a complete list of medications post discharge. Please inform your primary school teacher librarian/provider of your visit and for further instruction on these medications. Any specific questions regarding your chronic medications and dosages should be discussed with your primary care physician(s) and/or pharmacist. Medications That Were Updated - Follow Below Instructions [facility], [address], [place] [id number], [phone] Updated: ondansetron (ondansetron 4 mg oral tablet, [...] drinking abad (more content not included)... Normal [facility] Morphologyon 05-15-2023 RBC morphology finding Nom (Bld) Normal [facility] Comment on above: Order Comment: Order added by [employer]. Result Comment: some platelet clumping observed Performed By: #### 1 [id number], [id number], 7443659, [id number] #### [facility] (DEFAULT) [address] [place] [address] UA Qlvto5np 05-15-2023 UA Amorph. 1+ [facility] Comment on above: Order Comment: Urina lysis Microscopic order added on by Discern Expert Rules system. Performed By: #### 5 [id number], [id number], [id number] ####[facility] (DEFAULT)[address] [place] [address] UA Bacteria 1+ Normal [facility] Comment on above: Order Comment: Urina lysis Microscopic order added on by [employer] Rules system. Performed By: #### 5 [id number], [id number], [id number] ####[facility] (DEFAULT)[address] [place] [address] UA Mucous 1+ Normal [facility] Comment on above: Order Comment: Urina lysis Microscopic order added on by [employer] Expert Rules system. Performed By: #### 5 [id number], [id number], [id number] ####[facility] (DEFAULT)[address] [place] [address] UA RBC 3-5 [facility] Comment on above: Order Comment: Urina lysis Microscopic order added on by [employer] Expert Rules system. Performed By: #### 5 [id number], [id number], [id number] ####[facility] (DEFAULT)[address] [place] [address] UA Squam Epi Moderate [facility] Comment on above: Order Comment: Urina lysis Microscopic order added on by [employer] Expert Rules system. Performed By: #### 5 [id number], [id number], [id number] ####[facility] (DEFAULT)[address] [place] [address] UA WBC 5-10 [facility] Comment on above: Order Comment: Urina lysis Microscopic order added on by [employer] Expert Rules system. Performed By: #### 5 [id number], [id number], [id number] ####[facility] (DEFAULT)[address] [place] [address] UA w Culture if Ind Standard on 05-15-2023 Breakpoint UA [facility] Comment on above: Performed By: #### 5 [id number], [id number], [id number] ####[facility] (DEFAULT)[address] [place] [address] Color (U) Yellow Normal [facility] Comment on above: Performed By: #### 5 [id number], [id number], [id number] ####[facility] (DEFAULT)[address] [place] [address] Culture? Indicated Invalid Interpretation Code [facility] Comment on above: Result Comment: Resu lt created by rule GL_MAGR_ADD_UA_CULT Result created by rule GL_MAGR_ADD_UA_CULT Result created by rule GL_MAGR_ADD_UA_CULT1 Result created by rule GL_MAGR_ADD_UA_CULT Performed By: #### 5 [id number], [id number], [id number] ####[facility] (DEFAULT)[address] [place] [address] Glucose (U) [Mass/Vol] Negative [facility] Comment on above: Performed By: #### 5 [id number], [id number], [id number] ####[facility] (DEFAULT)[address] [place] [address] Ketones Ql (U) >=80 Normal [facility] Comment on above: Performed By: #### 5 [id number], [id number], [id number] ####[facility] (DEFAULT)[address] [place] [address] Micro? Indicated Invalid Interpretation Code [facility] Comment on above: Result Comment: Resu lt created by rule GL_MAGR_ADD_UA_MICRO Performed By: #### 5 [id number], [id number], [id number] ####[facility] (DEFAULT)[address] [place] [address] UA Bilirubin MODERATE Abnormal [facility] Comment on above: Performed By: #### 5 [id number], [id number], [id number] ####[facility] (DEFAULT)[address] [place] [address] UA Blood Negative Normal NEGATIVE [facility] Comment on above: Performed By: #### 5 [id number], [id number], [id number] ####[facility] (DEFAULT)[address] [place] [address] UA Clarity SL CLOUDY Abnormal CLEAR [facility] Comment on above: Performed By: #### 5 [id number], [id number], 7369757 ####[facility] (DEFAULT)[address] [place] [address] UA Leuk Est Negative Normal NEGATIVE [facility] Comment on above: Performed By: #### 5 [id number], [id number], [id number] ####[facility] (DEFAULT)[address] [place] [address] 36517 UA Nitrite Negative Normal NEGATIVE [facility] Comment on above: Performed By: #### 5 [id number], [id number], 8444773 ####[facility] (DEFAULT)[address] [place] [address] 81438 UA pH 6.5 Normal 5-8 [facility] Comment on above: Performed By: #### 5 [id number], [id number], 8648896 ####[facility] (DEFAULT)[address] [place] [address] 26913 UA Protein 30 Abnormal NEGATIVE [facility] Comment on above: Performed By: #### 5 [id number], [id number], 7684247 ####[facility] (DEFAULT)[address] [place] [address] 25265 UA Spec Grav >=1.030 Normal 1.001-1.035 [facility] Comment on above: Performed By: #### 5 [id number], [id number], [id number] ####[facility] (DEFAULT)[address] [place] [address]61 UA Urobilinogen 1.0 mg/dL Normal 0.2-1.0 [facility] Comment on above: Performed By: #### 5 [id number], [id number], [id number] ####[facility] (DEFAULT)[address] [place] [address] Urine Source Clean Catch Normal [facility] Comment on above: Performed By: #### 5 [id number], [id number], [id number] ####[facility] (DEFAULT)[address] [place] [address] 83419 hCG Quantitativeon 4 hCG Quantitative 997092.0 mIU/mL High 0.0-0.6 [facility] Comment on above: Performed By: #### 1 [id number], [id number], 9828116, [id number] #### [facility] (DEFAULT) [address] [place] [address] Coding Summaryon 05-02-2023 Coding Summary HTMLBase 64 KkjretdsBLe8iZj+PGhl YWQ+OS3NTMJoN58hgISa nP1cP4QSHHfBDsaeXISL ZGbUVhMlcmUtND2jdYVs ZXJu IC8+IG6kAYEgRrqnfUAw v3I3yJL7R03yaj2lCVgd nLM6TZJdNvIhpsuwx1vg xPx4IDwyTphvReZm XIFhtP77UCR2oX04Vj18 xFSxxQSfu4ltrLb5AjYv FHVcPCH4iCvoLButd8Oj QPZcH60gfYVxs7M8 IGNvbGxhcHNlOyBlbXB0 yZ5oSGdstyqko3aootsb Gfa7sd30kXUtx7V5cHF8 K7LwpwE9XDYqhITo HkhvyNJEhW8zzljep8uh ubwsQkYkHDHlCGs7ZTb5 CTOicMraAeOhNP57TVY1 PTUnumFmJ5KnCDKa jIttZsI8f8T3Xj9YN5DK QfmcZ5DJWWBOLArtmOJ+ UF81ll55I9QaWkarVxk1 EZJkTPZ6sNE1dY4o TBYxLDjws4T5uCP3Z5Ly eeUzil5qg1vzCNXzJKob K39roVNjg8P6MWPeiFD2 TCMwlIdjRpCswA33 Oyc+FLCiuZenv1XfPvtu x9mdu6canGq4TezxDVRy szOyhMcvHAQ0l1ArId5m UMAxcEO6qLM9gV1h HaJkItT9PFjcU857BwDh qWIqMhzuZ46cW5ZwxTR+ KQAkLwy5KJDnfDjaPD7h W5EiDUYcshqkdILj dDdmJB3nKNEoarizOXXy oE9pWVQcA8j3JoAjPfK6 EKziJ7ElWJHyyrfrNy27 hV5iPsWoNlA4SKsh T2SiuqY3QSNvnQGlDNdt KXB3C05ca1T0WMHaWVNs HAL0pWP1lN7mpTsxyxjs bGVmdDsgdmVydGlj COnjBRcwD088GSCdaOub PkNvZGluZyBEYXRlOiAg MDEvMjUvMjAyNDwvdGQ+ NOUoOZE3cVoiCAFj lFGmZOfzMm1aoUoptDpd ZI7sIVPcyndeNKMskJ8o RUJktKPmvLfmMV5sMWNf cwdzj037AqSbTUQ5 WDFaiZZdQ2XcsF6uStNb CCTlYCHlB1BoqIJlBTbd H431TMpjRwG8COVunvOj S6FvTGWmwSabExV5 x8E6Xj8Ac9SgqneoE7Ka rYFpNpWtKgdiSGs1K6Qb PjwvdHI+MO76YOEyGX80 KCb1AVE3kJmqBDtu XBDtE6TabQ7oDaVzRZIm ZGRkOyc+PHRhYmxlIHdp ZHRoPScxMDAlJyBzdHls ZZ6vRe6iCHNrNRNk zIawoEEyFgFzi3dtUAIi LZexSW3wdDnfI0LgtNK2 TEQiw3o5Qh66B50mR2Mj dXA+QMQfzTK8dMM9 pP2yKnJoKrO1OAscO296 UiYfiYBiSijen8uhe0nb wSk2LbM7CQDwckCxaSxb ZYJ6j6PrKq59F78b IHdpZHRoPSIxNSUiIHZh bWeqbr3pfY3mYv7+PGNv kQM3kJA1hJ6iToGrIvJ2 VJjtQ838SyNhrISd Gsecd9ngc5bkwLn7NnFs ESOhacHqaVkxHHL3f8Sp Ty62D2WjqBmii2McJow9 zk43xWAqj0G0wUM8 Z3VtKRZfchomiLGzsAri JZ2gELKaegvqLUEooE6l BBDvA3a9BpYsEnN0VAvj E5DguwJ3LICstOEk CKXubPAKlO1worpvd8mt lqguRqLzAIWqQEp0EWd7 WCEolPxoYdXqTBH0MdY8 VVD8aCSkbQ4akCir fsxcuJ7wXlj+UNO4dUUn dWGKKX0dKdtgtNZ+PHRk QLN9sPvtWVbuUBAlgR7q KZQaP1f7YnMtSuF1 HZzyB1XzqkN9NTTteRXs OBRvsFGKfX8dkrykb3zx edbbAuHoZJIbGTc3LTh9 LWFsaWduOiBsZWZ0 YqU1PVZ6qXUjvQ4oxSkb fvrisZ5mSar+QmlydGgg HPX6BUh7D8FlWsb0QHRm cLzoLD7eyXQaKQlq Gh6wgCnamTbeEW0uODMe ameyi567NzPxx1vdAIId hWMuFPdsPBN6I51mc2D7 TXPkOIRcMZO1sSW3 gR4sxIvedgdbsVEkgJjz bhIrkKmyYHmdCNceW046 ZWHuoJrhNaNgBVq8N9Ez Bfp6CFAmiHoxZU5j qBQnGRmeYy4yaTlozEhl BW7cHGMuqevwj062ErYu r3pbOCHtiYWnKGrbUXD0 K04ar1N7FOCaPJVo CMS0oIA2aF0ifFctnhqx bGVmdDsgdmVydGljYWwt OSevD166YRMgbJvhQcHm cQy4R3EgKid7FYPa dEmvAH7ypEZfQKrpBz2e tTrcmJrcBG4qNZEbjlie n628PgOqt1asSTQohUCa FZzdRAY9Q37cn1C4 OZArAKZyYIO5tJR0cX1y bGlnbjogbGVmdDsgdmVy oJrtZYreDKhjJ340LVTg cDsnPlBhdGllbnQg HMshCJu6N5MvAzcvlGB+ CS36BZNcZU53uUZkeYCf s4vmhWt0UaPfDQHqIWY4 xSceEAebt1FhRAYd M99eiXQhq6A7SGBqeUmn fIZpDcEiaXP1eN2dOOfd ljsnq6howiinWbtpk1uw vt54aU95Q56vKRbn ZHRoPSIzMCUiIHZhbGln ep2qoY7pMg9+PGNvbCB3 vWM9fX7rEEZkPgD7HTxc M676CuAogBAtNptv t0ekc7zetAr0MbR9DUFi tlXvuXubMVI0z3IqOw58 M27eJKfaPEEwNZJnUPFo HIKkcKluix1ssS9x Ii8+TCNirRP0rFU5cV9z SqFsWrE1RTftY741FpVj xPFaGsncV87nE4QscSG+ QHZoDgr6JGEgpOyr DS7yxRIyTZvhVl7pZQP8 UqQgVrXjFHnmR6ZnEIHl ogdhksajmFC4IYNvHURz mG12Oi4olUlvNMYn fSOWaU2jyjmdn0ikjgcq GuMcEIYkOHg1BMg6NGUi tZuaHaCfHRC1ReK8PDT4 pJNhpT5miVfwbixn uJ8mJ9CwYIMqvfaqLg48 iB6zXzNrWaQ9UFmuDkb+ D3pECmWCFCzhQ8sOEFGI OReYXI7LPCrteGJ+ KLHiCVJ6hZecVLzhLQQu sI1uEOWwK5u3TwKrGoF6 EViuJ2GyVMMedukxNa90 yE9rUfOwXcN5FIgw F0KbhrU9QYMgyZHrMAoc IRO6X68jo4S8OQNeSCWp TBJ9qII6bT2gnLnsqifh bGVmdDsgdmVydGlj FPzyVLfjB628TNLmyFfc VlO1HiPgYvGcEBF4Z4Xs Sks5PQSyeKrmQF1sxSMx SBpkMs3vxPgpaRje MN5rVJWhcjnvKFFtaM7q HQXrqBZwwGbyXG4dUDFi pxnpx638AtFzBNV3LGOf eQWnM2RzrF0wLdNf VUAwFRCwN0CyrTMpPOiq R517IUiwGkZ8CULbpzKn S1MrCFBrvCmfVsS1f0T5 Yp9pXDAAGYXqwkuv dGQ+XVCkKBE6jWfnAKkl XQBtxC4cTCVdU3y4VdAe FgG7HUwsU2YnXVTwqnsm Hf66sS8sQaXjYnG8 UUthU0XtluT5WAAuvVAy STguKZH1O99cz1F6YVEw EILzZJJ6tMC7dB8hvPyt bjogbGVmdDsgdmVy uEbgAVupQRzsH975GBJr cDsnPkZFTUFMRTwvdGQ+ CXQhJZV0rXqyWLovNTLw sX3dPSOeU6h9LhXd FnF7XXimC9IuPAApmmgh Ft60iR4xCgMyQqC7MTir D3LcliD0TBLlbTMxOCqf SUM4P03bl5T6IIIr YCBcOLU5yIT8kU9xtGmu bjogbGVmdDsgdmVydGlj UDgcCXmqP884IVLuxNrp RzPfSEYaYK5dkUpz dGQ+UP63dw71S4SxHpda Yqi4RQOkKIZ6tLA3nJ1h RPWyNLhnw0R6gZT4I3Se htIrnc4ym4njXTKw BBspH36geOJxs8J4YYWk jBQ0OQPxvMphVxRqpV31 Oyc+UDPbrWryx9ErBiqr m5nnz3ekvTl7GuCl CCRgcpUpgRizZHD9h3Mu Rp42A50sXFnsAKUdYVVw EBFtPPBhyBeyog2knM4p Ii8+XRDncVE8lVY1 zU5sDiRwFlP2GMlqP536 FkVrlZHgAmmwn0rhj0dm mAh0UiQoYDNjopRtpDxr FZY7p7NyPb42N4Ys rDeax9IzQgl6vh13uGOd o8S6yKN9K1VnFHIpocpg kHVpeMbpQI2pNZQxrwzw OCEcdJ7sSVDgM2d6 WbAqTeG3YJjwT3ImrbG9 SNLncBToGNYgbUCXzK2m lhjwx5gmsdihLqIuOJGa LQz9GCq2GIUqdCho KnVkYBX5KoP9BKD4tUEf vB8ctWdilzesaO5eYhe+ NCc9d5zwvVWjNQ1wuWR3 AF24NY41lREct0M7 aIR9U2XiPXUdajtdauub sFD8JQCwFAJyxF06Db3q dPfqTj1qIZWsEDC5ETSd fANfB1HmdB9wOqHj BUChLWXeX7TdtPVdAFeh G871ZMasVhS2YIUuuvFw A0PoEQBzrXztEeC7l9R3 Wl0MYQ39OZ45QV51 tHJhh9X2zJA9F6EvAZZi vcoegvhdfMY2ODYeOLJm pO88Nd0hbOraCt8kHDIp NAE2HQBowXYsR7Lf tB1rEbYtYLEgWNHwY2Yq sUAhYGxpT368OCtsUeB6 WDVufoUfD4NkGQNmgNvh LyZ3e1V3Te0HNq24 TS30WM26qDTei4D6fFA5 H3HpJIWudjuybsbqoDD5 XUVkQJBstJ48Jz3lmQnq Zo0zPNBqKEJ4AGWk eEJbW3HnzO8aXtMeZKVf LYBfS4QkwVNsQYkiJ791 CCsoBzG4SZWmfaBcY2Ko ORBigOdiWnV8p0O1 Il3TRNdkevx3D8MzLbvk dHI+KV12EKEkVV23yXXl rLGqb1iglZk3LbMlKZMb AJV0dVdxVPgni1Kg ZXI (more content not included)... [facility] Coding Summaryon 05-01-2023 Coding Summary HTMLBase 64 YacidrxyPVy9jDm+PGhl YWQ+HD7JKOFjU49bnWSk aU3aX6PSRVvKCqacLCVJ JSyIXhJhjcTlEJ3gjCBr ZXJu IC8+DY5sVLHjQpxxlPHy q3J2dMF4M12jal0iYBfy hPX5SDVbXqWlumuhg5dk gXv2YJzjWtrsSxQe TPLguS40DJG1hI50Ny37 xCRicFPat5ilyGe1TfJi EIXwULK7vWoyZIfxf8Zz AYUsW91isHDsd3M6 IGNvbGxhcHNlOyBlbXB0 nS1uWQyvvgqkm6znyhdt Bcy5nv10zAKiu7T2zCA9 P7VtdlQ1JPAruLDa OllrnLUUnZ3xoacnz9iv ndtxUyPkCBDsNVq2JNh2 PCTalHmmCrQyGG98MRE3 SVIbgwYjQ8DoRSMy mModAfS1k1M8Fg5JW3WP QirkU2YWNBMKPJodhAS+ AN03tb85K4ZlCizsQgp9 FEAaNVW6uXV7gW9r UUDdOYhyd2N9xDR2N2Og ssKmpv6be3usEASlROuu B49hcINly6N2QACbrPD8 ZQNlpJkoCnKmsV00 Oyc+WJVazWcmg2ZnHklj n7swh4lztFa5FokjZLXa puLqcAfiSQQ0x7DrWl4e HDErcFR1bZO3vV9e QhUiLvM8FFnvF578GxKv hRGuZxsxD76wT8ZkxMY+ JHDjMzs7JONniJxzKT1i A4MiMLHldykguUQy zBoxVE5hETHgijdjOHWw aK4pHPKbC3l4EsYiUjJ9 PQyfS0KsOTZzpktxNj69 dJ3vCuFdAoP6GYeo Q9NjxoR4CNEevVKwZUkp ZRK3N19xk7D4GHBxADYt NKF0eYC7qI8kzPirumcu bGVmdDsgdmVydGlj ATqtPEagB657PPAqoYow PkNvZGluZyBEYXRlOiAg MDEvMjQvMjAyNDwvdGQ+ IKYmFJK9lUmuFWKi pTNeTTmeKy7loIrgkKkq PZ1gKPSnxvdtSWKhpL1w COVrrRNjpGmcWM5rLDEl syiuo798JcVeSCE5 ZENnxDOzR3XmrX2vOvBb TNVhFIOgQ6NpyVEvDNmk W201BZvoIxJ8CQJotuNr W9QbMTTxeEkaCaP5 b4J0Vb0Sa0FyljuqL0Iz iDFsUlHdTjibURg2L5Qe PjwvdHI+QD43LQClGX52 RSr0WSA2jUjrICuq ASHkX0IfbD2oNeFqGIDc ZGRkOyc+PHRhYmxlIHdp ZHRoPScxMDAlJyBzdHls BG0mMx9vDFHfACSc rSkxtDIrUlUuh3yuZJGy EJgaFW4ieJvsG9VeaBM6 XRMvw2k4Dj67F73fC3Vk dXA+ZATecSQ5yEB9 gA5dFhCmHhB4RCfsL968 WrOxrVSnPzhoh4ute0as vXh4PeJ1QFKtkkClkRci HLE6q7FnLb48T10s IHdpZHRoPSIxNSUiIHZh aJwstn4qsI3oUj8+PGNv aPA8rPF6sL2zBzVjEiK0 NCerM926RjLfaKQu Vyphp3pcq1vnvDa9QaUu LFXdtkXyiYfsMMV1a9Il Ch24H5RqeXxhc4RnLqh7 ji09oHNjh5A8fCW0 X6XhOJOzsoiifHFqmMgi TI6hRCRbwypqAAPwnJ7r RDRwE7u6UeGbIhE4RSgu G5XqcrF5VPMgeWXk HPTliVSPlP9cpnfve2bo fgvzUkMkGQSrMJa4WTl3 CXAxvLfyTdHqSWA9CdB7 ZJT3uNNiaO8zvUur zpxomJ6mAbg+ZZO0cPBb iZHNSG8mNapudHY+PHRk LXO6wSpcZQeeLHVbnY8v PSVaO5e5ClZqFaH2 OTlnD5FrrfU6KLSwnNSg YYOhvHGDoK2istizw5zh jimgUzSwDZYpZXf2NIg9 LWFsaWduOiBsZWZ0 FmL6GHX7dGVgsP2joVcw cdzdvW3mPjl+QmlydGgg CYG4FJo3L9PhIss6UEEr vJzfWS6ioXAlVYde Nk0ciZqtvBxtQM1aHUFo hirlr560YnEew3xaPQPw lLTdEUyiQPL2E38xd2A6 EELnOENxECS9fFC9 rK0dpXxmujihgKSrcNnn tfOxqAmnOWlkCHnbB490 YQOzdLlhSwHrKSf1F5Zb Nns8IRLppMpmST0k mMSvXMbfRx8irXmptJdf FS6lJCMsvlkgc046VkSk z7ifMDIpjMAuWEyqCUM9 V12hl4S0TMCeNNQc FQF2nMN0tK9heUjuxwum bGVmdDsgdmVydGljYWwt LXbhA433TSWutYjdJkKr xLi2V7VbEui7YIJu fAsqWL2rfVIzHJkbEk6q nWmsnQhnYG8aIKVrizrd p383VkZwd4umYKYcyXJb WOhoLFF0G57hn2R6 JYPzBXMlUKU8wYK5vV2v bGlnbjogbGVmdDsgdmVy tVwgGHhoOTtsA789BZIw cDsnPlBhdGllbnQg EAdfHBd9Q2KhKgjqsFY+ ZC58QSWyXH99qOCowLZz k6zypHp4IkZcSHUwOZW3 iPpuHGiov0CaKOBx P13efUMbi2Q6AMLynWki xPLrAgAqbNF7zV7gWRxt fmspq5omvpzmIpspd6bd oo26nT37B54uHHgt ZHRoPSIzMCUiIHZhbGln br3khR6aKo8+PGNvbCB3 dTZ5cG3qXRBnNqE1HZvo I618AoGgqNKaWjwk s7ann5dduDg4VkU6GRTx tcBfjNypJYE7d3CkMl66 M44tWTbyBFZySCMwAKAt JISbjJezam3alP7k Ii8+EDCgaHL3dBJ1aI8j UlQgZhN9VLakS812NcCk bSEgQvuaZ48fN8UwmMW+ JMSiDol0DNVplXsa DX5rnTYtXSxoPf8fMKC5 FrYbNrMuZAcmZ5WmWPGg resfdgkdqBJ8ONWiWVAy eX60Tq5ogQjmZDPt iGVAlF0weitbx1ijmnjz YzFeFMYsGZv1ZBt9CWKm iYfrRnNkQXL6RrS5EZO6 fPNvxM4vcJvxqxvl gX6vH3NkKDQjqpwfKz03 kM8gIjHlQnM3VIouBmj+ R2mZPkGQVOmvM5tFGRDC RAsHKU9RJTzxyAS+ BOZqOMF4mDalLXdyIBJm cB7wRKNtB5v3BwZhHjT2 OYxaZ9WfZEZgzjcsRn34 xU7hBmXyBiK8NDwz X2BycfJ3NHJgzHBwMHgx XMH5X35ob6M9DMZiUKGc AJX8yMY9fW7onWqnwyvh bGVmdDsgdmVydGlj XIfnMZiuR114ESGgoOyw DvA6JqMlPtMoIOD0H2Wq Lad9ZLVoxSexAR4swLJw LBqdPt7biOgloZld EN1gEWTjxxcvGAIrdZ1s MNLysBHloCgjXG6tFCMw kchck268TnPsGIC0JDIm uECgC6GfgV6sTtRz PGGhHGFoK9PipGVaYWqr R941TBzvSmW6HBYdlsBl Y0GfRNGjoVvxAvQ6c0Z9 Ks9uZOQDFUJbefbc dGQ+ELHoCXX6kKudOCrh JOLqhX5cLNOtK3q5WdQx SaK9HNiqB5MrICWdtlev Fj66rS8uUzBbPyV6 IYkoZ8MxznT7OEKrgHUt HTinBBX6C40ly1X0VDIc FUHzYJY4jUF9pP7ylQyd bjogbGVmdDsgdmVy vLpsNBztXTioP628YEBp cDsnPkZFTUFMRTwvdGQ+ IWFuXVA6hBzhDZsoUQRq hH2gUGKvX3t4IySb PgL6MBhaS0TsSGWlcofx Ap67xR5nGaJjSdM3LFid O2GjczZ1AZQlaJMgYNsa YLO3B08tr0J4EBVh PXNyJUW6iFC3iD1joXdc bjogbGVmdDsgdmVydGlj OFmrDFmcJ698IUBnjRvz Ut2WEX84VZ27N2Gn PjwvdGFibGU+PHRhYmxl IHdpZHRoPScxMDAlJyBz gIwbYD5cFn2aANPkSUJp kVrlfZWwApMwz7dt PDDjOIwkXY7tkHmgV5Eq sTB6EHYdz0g5Xp51Z36v S6CafWO+RLSisYL2vTB9 gF0hWjGhEzT4HRyc Z654XqCqeCKvHqkog3hw k8jhzTf0VqZsVVXygqYt mJppHBI3q3YjFo90P10v IHdpZHRoPSIyMCUi DOYwtQqpec2zdA0hBy7+ QMVdeIQ7sGM7aI2rGfEf YnS1OJhyT205CjDcrZOe DcouX92lR9WqxEV+ WZFmIel8LQGlwZglHL1m zEPeQXkgXs3bCVH5MpXi BeElDJtxM6SiRIRnqhhv rfonkIU8BRRlXZLu rW37Pk7ilBkvYj6lKTPg AQG3LOAiyRBvW1YeuP5m CzOiHLVxMEDbX6TdhKDu CYgxE053WXisFxP0 RUQopnWkD7EnODEqmCxn AfT5m6F5Tt1YfXkmpFPo VK7mMkYkVUs1G9LkOlg3 SUDacSacQN7xvSNr ODlzRd0qjFcfwXocCF3j FCAopuayu293OyZfw7cc KMRilWWbIKthYZB9F34s x3N5BBLoWDIwLPS2 vSH0pK6ysUxvtnzinFHm dDsgdmVydGljYWwtYWxp R527RTFwuZzpEzYBDgd3 T7CcDin6IKUtwUxb HR3kfUBtRGemSa3inEel dCqqMZ8oQRZepnnyg542 FtYex5huRDJueUQiPYtx EMF9D53yr0G7OVTu CXCfMHN0rTX9iU1ubEjt bjogbGVmdDsgdmVydGlj AUzlNWjaJ530FGFqfVjg Bb5VOap5W2TbRgw5 JRUapBtsUY3iyOUgEUsx Gi4zqEhgkQuoXZ1aSLMb wrpie019GsBjx4kgQOZi nOIkJLmnJCA5T45f d8I6ZOKjXAXiCUO1xER6 qR9xeKgmlmyhlJMmsReh fcHljTtfVGirAApsU661 IHRvcDsnPlBheWVy OjwvdGQ+IK75eo58M1Ai GdscAhi5FMXrRGG4zRP5 xE2fCOZcRCyvf7G9oSD4 U0QkrzYkap3gv1ml YXB (more content not included)... Normal [facility] .Auto Diff 104-15-2023 Auto [place] % 8 % Normal 04-19 [facility] Comment on above: Performed By: #### 1 [id number], [id number], [id number], [id number] #### [facility] (DEFAULT) [address] [place] [address] Baso Abs# 0.1 x10 Normal 0.0-0.2 [facility] Comment on above: Performed By: #### 1 [id number], [id number], [id number], [id number] #### [facility] (DEFAULT) [address] [place] [address] Basophils/100 WBC (Bld) 1.0 % Normal 0.2-2.0 [facility] Comment on above: Performed By: #### 1 [id number], 99346223, 8676706, [id number] #### [facility] (DEFAULT) [address] [place] [address] 17785 Eos Abs# 0.1 x10 Normal 0.0-0.4 [facility] Comment on above: Performed By: #### 1 [id number], 56826294, [id number], [id number] #### [facility] (DEFAULT) [address] [place] [address] 58291 Eosinophils/100 WBC (Bld) 0.5 % Low 0.9-4.0 [facility] Comment on above: Performed By: #### 1 [id number], 47931759, 4807046, [id number] #### [facility] (DEFAULT) [address] [place] [address] 85647 Lymph Abs# 2.9 x10 Normal 1.3-2.9 [facility] Comment on above: Performed By: #### 1 [id number], 14998766, 3794369, [id number] #### [facility] (DEFAULT) [address] [place] [address] 92758 Lymphocytes/100 WBC (Bld) 30 % Normal 14-48 [facility] Comment on above: Performed By: #### 1 [id number], 93614388, 8787073, [id number] #### [facility] (DEFAULT) [address] [place] [address] [place] Abs# 0.8 x10 Normal 0.0-0.8 [facility] Comment on above: Performed By: #### 1 [id number], 66437405, 9575639, [id number] #### [facility] (DEFAULT) [address] [place] [address] 82873 Neut Abs# 6.0 x10 Normal 1.5-9.2 [facility] Comment on above: Performed By: #### 1 [id number], 99389144, 0145722, [id number] #### [facility] (DEFAULT) [address] [place] [address] 46980 Neutrophils/100 WBC (Bld) 61 % Normal 44-88 [facility] Comment on above: Performed By: #### 1 [id number], 45755398, 5539835, [id number] #### [facility] (DEFAULT) [address] [place] [address] CBC w/ Auto Diffon 4 Erythrocyte distribution width (RBC) [Ratio] 13.4 % Normal 11.5-15.0 [facility] Comment on above: Performed By: #### 7 267306, 90885163, 2965264199, 9572279365, [id number] ####[facility] (DEFAULT)[address] [place] [address] Hematocrit (Bld) [Volume fraction] 40.7 % High 33.7-40.4 [facility] Comment on above: Performed By: #### 7 293745, 99774583, 0125726289, 2705187194, [id number] ####[facility] (DEFAULT)[address] [place] [address] Hemoglobin (Bld) [Mass/Vol] 13.7 g/dL Normal 11.3-15.9 [facility] Comment on above: Performed By: #### 7 563981, 92701865, 3538223730, [id number], [id number] ####[facility] (DEFAULT)[address] [place] [address] Man Diff? Auto Invalid Interpretation Code [facility] Comment on above: Performed By: #### 7 555779, 44701133, [id number], 5212485136, [id number] ####[facility] (DEFAULT)[address] [place] [address] MCH (RBC) [Entitic mass] 29 pg Normal 24-34 [facility] Comment on above: Performed By: #### 7 378334, 05926060, 2437208199, 1100247696, [id number] ####[facility] (DEFAULT)[address] [place] [address] MCHC (RBC) [Mass/Vol] 34 g/dL Normal 26-37 [facility] Comment on above: Performed By: #### 7 434388, 33987563, 5424311021, [id number], [id number] ####[facility] (DEFAULT)[address] [place] [address] 63800 MCV (RBC) [Entitic vol] 86 fL Normal 81-100 [facility] Comment on above: Performed By: #### 7 394229, 64554208, 8792608458, 2180778086, [id number] ####[facility] (DEFAULT)[address] [place] [address] 80404 Platelet 430 x10 High 138-427 [facility] Comment on above: Performed By: #### 7 309482, 66050478, 0676231233, 1100380233, [id number] ####[facility] (DEFAULT)[address] [place] [address] 88001 Platelet mean volume (Bld) [Entitic vol] 8.5 fL Normal 6.3-10.2 [facility] Comment on above: Performed By: #### 7 804792, 55849458, 8236942198, 5888439032, [id number] ####[facility] (DEFAULT)[address] [place] [address] 89209 RBC 4.75 x10 Normal 3.70-5.30 [facility] Comment on above: Performed By: #### 7 642842, 95428284, 7182059063, 1682151956, [id number] ####[facility] (DEFAULT)[address] [place] [address] 75754 WBC 9.9 x10 Normal 3.5-10.5 [facility] Comment on above: Performed By: #### 7 216337, 22579625, 1303790878, 8411497606, [id number] ####[facility] (DEFAULT)[address] [place] [address] 39345 CMP Standardon 04-15-2023 eGFR Non AA >60 Invalid Interpretation Code [facility] Comment on above: Performed By: #### 1 [id number], 85846215, 2317870, [id number] #### [facility] (DEFAULT) [address] [place] [address] 53470 eGFR AA >60 Invalid Interpretation Code [facility] Comment on above: Performed By: #### 1 [id number], 67565075, 4244153, [id number] #### [facility] (DEFAULT) [address] [place] [address] Albumin [Mass/Vol] 4.5 g/dL Normal 3.5-5.0 [facility] Comment on above: Performed By: #### 1 [id number], 98070024, 8308196, 6579112580 #### [facility] (DEFAULT) [address] [place] [address] Albumin/Globulin [Mass ratio] 1.2 {ratio} Low 1.4-2.6 [facility] Comment on above: Performed By: #### 1 [id number], 20601604, 1545378, [id number] #### [facility] (DEFAULT) [address] [place] [address] Alk Phos 68 IU/L Normal 32-91 [facility] Comment on above: Performed By: #### 1 [id number], 03968408, 7842275, 7657983874 #### [facility] (DEFAULT) [address] [place] [address] 57780 ALT [Catalytic activity/Vol] 34.0 U/L Normal 14.0-54.0 [facility] Comment on above: Performed By: #### 1 [id number], 94862903, 7477525, 8214989459 #### [facility] (DEFAULT) [address] [place] [address] AST [Catalytic activity/Vol] 27 U/L Normal 15-41 [facility] Comment on above: Performed By: #### 1 [id number], 57975436, 7619195, 0238476952 #### [facility] (DEFAULT) [address] [place] [address] Bili Total 0.7 mg/dL Normal 0.3-1.2 [facility] Comment on above: Performed By: #### 1 [id number], 54966550, 8828215, [id number] #### [facility] (DEFAULT) [address] [place] [address] 83248 Creatinine [Mass/Vol] 0.77 mg/dL Normal 0.60-1.30 [facility] Comment on above: Performed By: #### 1 [id number], 79204963, 6972070, 3309804922 #### [facility] (DEFAULT) [address] [place] [address] 67953 Globulin (S) [Mass/Vol] 3.6 g/dL Normal 1.5-4.3 [facility] Comment on above: Performed By: #### 1 [id number], 95839897, 1477846, 7994700988 #### [facility] (DEFAULT) [address] [place] [address] 44742 Osmolality 269 mOsm/L Invalid Interpretation Code [facility] Comment on above: Performed By: #### 1 [id number], 91827834, 7579830, [id number] #### [facility] (DEFAULT) [address] [place] [address] 68443 Protein [Mass/Vol] 8.1 g/dL Normal 6.5-8.1 [facility] Comment on above: Performed By: #### 1 [id number], 27313555, 5788622, [id number] #### [facility] (DEFAULT) [address] [place] [address] 23231 Urea nitrogen [Mass/Vol] 10 mg/dL Normal 8-26 [facility] Comment on above: Performed By: #### 1 [id number], 85459524, 2195781, [id number] #### [facility] (DEFAULT) [address] [place] [address] 78661 Urea nitrogen/Creatinine [Mass ratio] 12.9 mg/mg Normal 4.6-16.2 [facility] Comment on above: Performed By: #### 1 [id number], 79197090, 5733208, 2129056009 #### [facility] (DEFAULT) [address] [place] [address] 44759 Calcium [Mass/Vol] 9.0 mg/dL Normal 8.9-10.3 [facility] Comment on above: Performed By: #### 1 [id number], 33343025, 0906337, 2399484849 #### [facility] (DEFAULT) [address] [place] [address] 92971 Chloride [Moles/Vol] 104 mmol/L Normal 101-111 [facility] Comment on above: Performed By: #### 1 547605165, 00784499, 5751263, 1327797535 #### [facility] (DEFAULT) [address] [place] [address] 03624 CO2 [Moles/Vol] 23 mmol/L Normal 21-32 [facility] Comment on above: Performed By: #### 1 [id number], 11987046, 8015362, [id number] #### [facility] (DEFAULT) [address] [place] [address] 59976 Glucose [Mass/Vol] 94.0 mg/dL Normal 74.0-118.0 [facility] Comment on above: Performed By: #### 1 [id number], 73503806, 5466005, 9108455686 #### [facility] (DEFAULT) [address] [place] [address] 25270 Potassium [Moles/Vol] 3.9 mmol/L Normal 3.6-5.1 [facility] Comment on above: Performed By: #### 1 [id number], 72533321, 4716251, [id number] #### [facility] (DEFAULT) [address] [place] [address] 78465 Sodium [Moles/Vol] 135.0 mmol/L Low 136.0-144.0 [facility] Comment on above: Performed By: #### 1 394625702, 27552903, 8136807, [id number] #### [facility] (DEFAULT) [address] [place] [address] 36401 Anion gap [Moles/Vol] 11.9 mmol/L Normal 5.0-19.0 [facility] Comment on above: Performed By: #### 1 [id number], 48259481, 3503363, [id number] #### [facility] (DEFAULT) [address] [place] [address] 58660 ED Clinical Summaryon 2023 ED Clinical Summary [facility] Emergency Department [address] [place] [address] 18856 ED Clinical Summary PERSON INFORMATION Name: LIA DESAI Age: 22 Years Sex: FEMALE : 2000 MRN: Acct#: Visit Reason: Vomiting - ; NAUSEA, VOMITING, 6 WEEKS Arrival: 04/15/2023 14:48:29 Discharge: 04/15/2023 16:38:00 LOS: 000 01:50 Check In: 04/15/2023 14:48:29 Checkout:04/15/2023 16:38:00 Address: [address] [place] [address] PCP: ROBERT MARRERO PROVIDER INFORMATION Provider Role Assigned Unassigned Sara SANTOS, Sera ED Nurse 04/15/2023 14:50:36 Elsa Robles-C ED PA 04/15/2023 14:51:04 VITALS INFORMATION Vital [...] EDUCATION INFORMATION Instructions: Nausea and Vomiting, Adult, Uzqc-hd-Whla Follow-Up: With: Address: When: ROBERT MARRERO [address] [place] [address] Within 3 to 5 days DIAGNOSIS: 1:Nausea/vomiting in Patient Understands: Yes - Patient/family/careg iver verbalizes understanding of instructions given Comment: Normal [facility] ED Patient Summaryon 024 ED Patient Summary [facility] Emergency Department [address] [place] [address] PATIENT DISCHARGE INSTRUCTIONS Patient Information Name: LIA DESAI Age: 22 Years Date of : 2000 Reason For Visit: Vomiting - ; NAUSEA, VOMITING, 6 WEEKS Arrival Time: 04/15/2023 14:48:29 Primary Care Physician: ROBERT MARRERO Attending Physician: Yassine Maldonado MD Comment: Visit Diagnosis: Diagnoses This Visit Nausea/vomiting in (O21.9) Vomiting - ([id number]) The Pharmacy at [facility] is open Saturday through Saturday from 9A [...] alcohol and/or drug addiction problems; contact the [facility] 29/10 Crisis Hotline -Text 8QBOL ei 294937. If you received any narcotics, sedation, or [...] legal documents With: Address: When: ROBERT MARRERO [address] [place], [place] [id number] Within 3 to 5 days Medication Information: The exam and treatment you received today in the [facility] Emergency Department were for an urgent problem and are not intended as complete care. It is important for you to follow up with a doctor, nurse practitioner, or physician?s assistant teacher primary for ongoing care. If your symptoms become [...] so we can reach you if necessary. [facility] Emergency Department has provided you with a complete list of medications post discharge. Please inform your primary school teacher librarian/provider of your visit and for further instruction [...] other disea (more content not included)... Normal [facility] Extra Greenon 04-15-2023 Tube Collected Yes Invalid Interpretation Code [facility] Comment on above: Performed By: #### 7 [id number], [id number], [id number], [id number], [id number] ####[facility] (DEFAULT)[address] [place] [address] ED Clinical Summaryon 2023 ED Clinical Summary [facility] ? Urgent Care [address] [place] [address] Clinical Summary PERSON INFORMATION Name: LIA DESAI Age: 22 Years Sex: FEMALE : 2000 MRN: Acct#: Visit Reason: UC - Nausea; NAUSEA Arrival: 04/12/2023 09:25:14 Discharge: 04/12/2023 09:56:00 LOS: 000 00:31 Check In: 04/12/2023 09:25:14 Checkout: 04/12/2023 09:56:00 Address: [address] [place], [place] [id number] PCP: ROBERT MARRERO PROVIDER INFORMATION Provider Role [...] With: Address: When: ROBERT MARRERO [address] [place] [address] Within 3 to 5 days Comments: Diagnosis is history of nausea vomiting, during . We provided you with medication help with nausea. Keep hydrated. Eat light, over the next 24-48 hours, soups, Jell-O, avoid heavy meals. Follow-up with your own primary care provider, or your PRESS OPERATOR ASSISTANT physician in the next 3-5 days, for reevaluation. Return to the emergency room for worsening symptoms or concerns, worsening abdominal pain, worsening nausea or vomiting, spiking fevers, acute shortness of breath or chest pain, or any questions DIAGNOSIS: 1:Nausea and vomiting during Patient Understands: Yes - Patient/family/careg iver verbalizes understanding of instructions given Comment: Normal [facility] ED Patient Summaryon 024 ED Patient Summary [facility] ? Urgent Care [address] [place] [address] PATIENT DISCHARGE INSTRUCTIONS Patient Information Name: LIA DESAI Age: 22 Years Date of : 2000 Reason For Visit: UC - Nausea; NAUSEA Arrival Time: 04/12/2023 09:25:14 Primary Care Physician: ROBERT MARRERO Attending Physician: Oneil Salomon Comment: Patient Education With: Address: When: ROBERT MARRERO [address] [place] [address] Within 3 to 5 days Comments: Diagnosis is history of nausea vomiting, during . We provided you with medication help with nausea. Keep hydrated. Eat light, over the next 24-48 hours, soups, Jell-O, avoid heavy meals. Follow-up with your own primary care provider, or your PRESS OPERATOR ASSISTANT physician in the next 3-5 days, for [...] these instructions at home: Medicines ? Take zetq-bue-kddjzag and prescription medicines only as told by your health care provider. Do not use any prescription, fxat-gsz-uxebnbg, or herbal medicines for morning sickness without [...] to yo (more content not included)... Normal [facility] [place] 024 Urgent Care Record [facility] ? Urgent Care [address] [place] [id number] PATIENT DISCHARGE INSTRUCTIONS Patient Information Name: LIA DESAI Age: 22 Years Date of : 2000 Reason For Visit: UC - Nausea; NAUSEA Arrival Time: 04/12/2023 09:25:14 Primary Care Physician: ROBERT MARRERO Attending Physician: Oneil Salomon Comment: Visit Diagnosis: Diagnoses This Visit Nausea and vomiting during (O21.9) UC - Nausea ([id number]) If you received any narcotics, sedation, or [...] With: Address: When: ROBERT MARRERO [address] [place] [address] Within 3 to 5 days Comments: Diagnosis is history of nausea vomiting, during . We provided you with medication help with nausea. Keep hydrated. Eat light, over the next 24-48 hours, soups, Jell-O, avoid heavy meals. Follow-up with your own primary care provider, or your PRESS OPERATOR ASSISTANT physician in the next 3-5 days, for reevaluation. Return to the emergency room for worsening symptoms or concerns, worsening abdominal pain, worsening nausea or vomiting, spiking fevers, acute shortness of breath or chest pain, or any questions Medication Information: The exam and treatment you received today in the [facility] Urgent Care were for an urgent problem and are not intended as complete care. It is important for you to follow up with a doctor, nurse practitioner, or physician?s assistant teacher primary for ongoing care. If your symptoms become [...] so we can reach you if necessary. [facility] Urgent [facility] has provided you with a complete list of medications post discharge. Please inform your primary school teacher librarian/provider of your visit and for further instruction on these medications. Any specific questions regarding your chronic medications and dosages should be discussed with your primary care physician(s) and/or pharmacist. New Medications [facility], [address], [place] [id number], [phone] ondansetron (ondansetron 4 mg oral tablet, disintegrating) [...] is not kn (more content not included)... [facility] Coding Summaryon 03-06-2023 [facility] CgmuyrpiSGn8kEv+PGhl YWQ+EH4KGZBeL27fcXKy yS2hA6LHOMdVVgamAZYP GOvXEoYccwNnTM9fcKUw ZXJu IC8+OZ6eEXEyDpcqwMBe l5N7hIA0X37foy4cNEpr uIX2DBQxOcFrfxrjd7yz kAu3XYszIpypNvJg GPPzdV36GOZ9xX81Yk18 mLXuzHCdo0lzuOt7QnGf HONzXLZ0lJaxEVolk0Zn CGOlA15frVLja8R0 IGNvbGxhcHNlOyBlbXB0 iY9uMMbvbdprq6mdeqlz Eji9ea98dNNzc2H1aNL1 U1NwxxJ7VRXpfMRh LglfsZPMxV9edtdul3hf rokeVtOtEJJkOGm1PHc3 MYDrwNozXcWsJK52JJD1 OOHuwxLuR6CaXCYj mHqbLiY0i1O2Ow6QO0ZH UbxtF6QXYJSCNCtkfHV+ NT69ic98X1GrEtdqFvj1 IEZzGWC6rOP8gF1k NNTcNEyhz9Q2bIQ4J8Pc hdHxap0sh7akIUOtYHih V39tuLAux8R7GHJxuXK0 RPDjyIndQjAvcW15 Oyc+JRGdjEtok4GyBipd a8ypy7ofzRn4FausTFWc vlUvpHhtWKQ0j5UeAx1m YDJfmED8xQH3vP3t WrVeRsY3BFfjP505IkHu cEKaMdjtH28aR1YgqAX+ GZZuZah2DARjyYfrBM9h N2EqZLCxayztwAZk rAvhUP4nVXMkfvcxVGQu dA3qKGFjM1w5EyQmAcF1 CXhpN4FqIXLymsgrEh42 iC5vEhAlMxY5CSml T9RzalZ6BENmxQHrRBrb JAG9Q58jw8F7PYMzEDVm VFU3nUB9hU3fyKqevckw bGVmdDsgdmVydGlj KDfkAFmpW346VWHmwClb PkNvZGluZyBEYXRlOiAg MTEvMjkvMjAyMzwvdGQ+ JAOtWZG5xXfmBQCs rUAmRAmfNc8ytEaijPtd MV3bYKHtdjfzUUUeyR8y LNIvtQJxdIfdDD1aXHYu irmlc351EbOhHCH4 BDLafGHeZ2RmbD3oXyOy CQYiPARgW5AcyXMsPOdh M771BKqpAzA2XWJoyjRm X4SkPYTacFphQaY1 x9N7Xu5Tq0MidpjxW3Fq lNQlWkOcKcqjBIz7L7Ho PjwvdHI+GM46VWGtDT05 JCg1CWT1gZddZZqv OKPpZ9XvbW1mPvJzUMVq ZGRkOyc+PHRhYmxlIHdp ZHRoPScxMDAlJyBzdHls KW5hXx9wWNLqNGPc sYaniRKwLsPzw5tsSLDc NThbIQ5rcCphR8GniPM5 YGEft5l3Ju81X05gU1Eh dXA+WQMpbRH7oQI5 eI4oKuLuZoL2HYygZ710 OrHluEQoXdlwp8nbx9pw vJj1VyF1NSRyhwAcpEpi QEE4y2IeJc57B09e IHdpZHRoPSIxNSUiIHZh fWdsfp6leZ2iNm2+PGNv bRD9dGA5lZ5nFwBlPyJ1 RBmnU232YoNnzSQk Zlqnf3yiu5yfaSw3IjFu LZQlnjRdxPmpAIY5i8Pa Yu22P5YudPwtd2PzThf7 aj43fLYxo6B8kQL0 L5HvLEGnrwvxoAQpdXpo CR8vVXTbqsyxUEPsxJ4b HQNjH7i6NxVkDnQ3BXnp U7JxqlS4OIPmzDNq BPKcnMNJjS0bfmczf1am bedqSjFiDDRcDDm3OJl1 DJOzhMipNaQbPLQ1OsL4 ROB8pPNmuN7kiTlg oqlqjD8uHll+HFF1sOWs bZUFOM6rNkjjsSC+PHRk DRT2xQjzFMewTDMwaR0w DLKaA1r2AgRbHuW8 KXnmL7KcrfF7NZSncXMt RXBapKWSrC0jikhix5gx zrjiSrRpYBImXCt1PCn2 LWFsaWduOiBsZWZ0 VwK6HDR1fBYseB1thIap bdmhnB5vEhf+QmlydGgg YNH7PRm9P3YfYon7AHUm lVoeVX1zkDClSFqi Lg1lpYajmFdeWF1rCCMz yewjf503CvGkw6hqRXAl wCVjWXdcXRY0R36kq6T7 LIJrKTLpKRL6wPI5 fK9jaAedojjzqRKyqCti biMetJhiYVtrYMsuY907 VKIzwRyaBkFkMBt9N6Ge Tdi2NKEnqYebZK2t aVKkVIsvJi1acMowwSdo LZ5hPRQvvysht572SmZw q2skBQNbnSDjSDhxIML7 Y20xh9Q5HJYeNBVt IIJ7yEI0bP5tvKkpfzoj bGVmdDsgdmVydGljYWwt YRthZ211ZNXxvVpkPxBe xTh8R9EaXvz5BYUa uPylYE8kqPQpXGffDa8u wSyojZzdJX2fHYCsgoag w299NsVyb8omLNWskKGh SGwlRPZ4M06ev9F2 NTIsDQKwFJW2vTU2lN5u bGlnbjogbGVmdDsgdmVy gWqnUCtkNHdiY589JDIx cDsnPlBhdGllbnQg WKqcLGt9C2CnWchvxXY+ WN00MAXnKP10tFJhhBIh l9aydWp1NqScLWPfYTZ3 rSlrWMrrz6SsHKOk H07jrKXjb6R9ZTLyzCkh rLTtAnEypYK6mK4sKEtd yyjpd0pmqxqjJjlkr1fc zu01bD37D53wSWfo ZHRoPSIzMCUiIHZhbGln by1ntK2wEr8+PGNvbCB3 gKD1eV5iKUFdFqC2JNcg D615EcOvfXDzSmpb v7apa7dxlIl7OpN7ZQQn ceVhnCteGKS8l1CsHt52 F93cFVgkIZGlZZQoYAJn UHBbfPsicc7zdC2v Ii8+IAJkuJI1oIR8zE9z NeIpMcY4LNgwR006AhHi iPCrIakzF47rZ4DzbTI+ XSGjFcd9VUHokLgs EY2wmIIeTJqgBd7rGMN8 VfSbRlUjEVhzC3AdFSJo undnrtggiFE4PPCxJMKh fK78Kr4owWtjSDUi bVSEpM7zgklxx4luvpsx KsIxZPAcYBd2ETl2SCBi aHfrCvOsJYP9GqL9GFC9 pHPzjB0lmQueyvbs qF1aN3DcXPOashkmPg22 sY2eYlVjIkV3VQfgXtg+ T5qPDrNXKWdnT8uUSCRR JUdBGF2LIHjdeGV+ YZFhVBT2cXdiALeqPKGg oQ8rRKGyB1l6HgPfJtW6 QEuyS7QjQMBsyuixPl05 iX3bMqUrFhR3SNws W5MpkrA5XXTaoJNsTVbr NFJ4P37nl7J6JCRiJMEj DIA4sAC6eJ4dbLorepsp bGVmdDsgdmVydGlj QIcgUXbtO613TJNblYfu KgO5CvWrJsErEFH1H4Ro Jrr3JGDjgLbwBK3huEMb ZHsyGp9kjVyuaYde UR5wOXCunmpxLERibC9k DMDrrHVkmQfgBS1nXETx jynuz605SnHrOZR0RKCj yXLqT4AmxL0kXzKr RDUdUVGtC1JtcEBvVQog Y354CFztHrF5QJIbukLo Y0JrXZExhTsyQlH7l4R2 Dr5qLTVGKGDaaslc dGQ+NZHhMHZ3kCjiYDxw DAMxuQ5gIKGiC1o1OhFx DyJ3PGrlI2OpIPVawmpi Jn05pM0mMaBzPcJ5 ZSqjR3SwnbO4ZSAobEGs PPevDWY7X87dd4F5MKBc SXOrZHB3zHF3eM0skWoh bjogbGVmdDsgdmVy jQioLSutPHpiI294RTVi cDsnPkZFTUFMRTwvdGQ+ UPFbJHC0tNpzXXxcHBTq bS9bBWSpI9m8BrZc YeT1SMklR6LiWLCgpvtj Zg12rN8gZyZxElA9KVzn Q0PlxbW7UVTvwCLoXYik YZR4G26gq8X8HKUv DWUqVCP6eII8qZ3qaAtr bjogbGVmdDsgdmVydGlj UWpzMEkyC929YMEfrIbo NpAqASYtFA2gfHqd dGQ+WE37eq77Y6DeOnyh Jji0BFXlUEK7uSQ6rZ6c JAPuMDegt2D1zYI0V5Bk ruYcdt0tq7noCUFp IMypP71fxQIxl1U1URWf jBA0ADZpxVzrTjIcsJ14 Oyc+TDCfbWuhr1OmYape e5hxb8kzlNz5LiTd HARdruEsoPhyEQP0s0Oo Qq73E55dDCxrDZMxPKSf JCHmPWXhvAchlf6ovC9j Ii8+SAZfzNP5mWD2 cL7qZuRtPrQ1QGewT523 NmRgbOLnStljl7cyr1jn vGe4BfIsDUVjhkTloMew YEB5n5VfEc13A6Fm lWrmz2FcLay7tj63qXMw z3N2kKP5C4VfGOZuzfwx ySIloOtnBP6gJWIarakj KXAwxX1wFXVtS4m7 HmEpZoD7CQmiX3AzmiT1 TMKtcXCoKZFuoOPKhW6t luwyu5pluchcEhKvPLXn PGn8PJo9JZOqmTqi NuTvCJY3SvZ6GYH4lXKv hO9eaRzcsbfjgQ1oIbz+ TEk1u8lyfKKlZU8toXC5 XY34DQ92pZPhr7A3 sZG0G0KaTUGlvpalpkzl nCK6YZNcQULsxR22Uj8k hBwwXy7uYXUmMGN2KIIf vVJwX9QjbM1eVuQu ADVmFDKvW8EzeLAlUPlq P609FOpyRoA5FDAzzjVk Y6CtNMJkkBouOfM6a4V0 Hn8OXO03EB66AH13 tCMoe1W4rLO0U9HiEAAh ycaqnneymVJ1SSKdOJZz oV86Bb8ffSeePb8qTXDu EQL5USDxpLMvZ6Go rL2dOiJxRMVtEDYnY9Pp jSRmJWbbM372BYouAaI2 UMEurlUeE6PvWIEepUny OyN1l8N5Hj8XZb02 KE34ZK45bJBlz7S2rVM1 M2MjFDSmmmcxajzmmBU6 MDHhSSKmcW60Ey1lnInp Jo5zARCmOOY3EOIn qOAkX1EdnL8zRmLtDCPg NSMkH3CkbVMoZStoP664 DPegSrS1EKZlteTkG8Fy VOLsxBofNhC6d3A3 Os1UGKmvvbe3K9WqKfbh dHI+KF29PUAjJS40iYTl wTVjs8urcGr6FzBsJGNy XOZ5lJazIUfsc0Ur ZXI (more content not included)... [facility] Coding Summaryon 03-05-2023 Coding Summary HTMLBase 64 HqkgzeyeZHc7wEt+PGhl YWQ+FI7ZOCYgI02mmFXi iB1vZ4ZUDSiDTppdTGKL XGrJFqDoprNtRJ5ltUMr ZXJu IC8+UV2iSBVjDugijSOb o9O8dTX7N65bya3uUSer vRS3JZOaRhFdwjsww5jq xPo8CBkrNittIlEs YFAmkS63TWU9jU62Pd62 fYQdoNFvu9xezHq0TrQf XEGqEUT1cOjuTEmji3Ul YNXcR34foRKvt8Y6 IGNvbGxhcHNlOyBlbXB0 cE0wMDpggzcsh4shvizc Err4yi43hOXyi9J2gFK1 I5NmphB4RTPtyLKg GctpyTXRoW3gaconr9jq cmqrSiJdUEAdFNb8DDc2 ROXajOdiApRyIA02GUY3 HKVoomNkL4SfFODx eUddCvZ5p0Q5Lc3ZA3GL PgxkN1PRFOXJTUkhbTT+ YT92iw23O0JnZqjeGsc0 JLYtMJI8aGM6vB7u VEDpTLnvq1T8uLE3C3Lu omBgkf3pt3maDQUqLSce I49zqBXey2H5CCHnaZF9 FNRioYbaCnQiuM84 Oyc+ZDIxzMjid1QbPwjk l8bui0plxEr9TxdfFCDx htAzkTocJPS0v0CqQo2s GSUimPL6pQD6wX1r QoDsQeT0NBzdF742QnTu pIWpXlbiI14zP7EuiGC+ IQFmGnk2NTYxjFvrRB4a A0TiTEOygxfdwSZh hRelIU6eJIUpjhinLYJm nT8cBKEzR4i5ZyStWgV0 PYqoK0PiRZXntzovQq61 fU1iSoYpSlN2EZci W0ZqlmY1TKJckBIzGDma LLJ0S98mm9C1JUXfDGBa SQX6zGE8hB0ccYeiemfh bGVmdDsgdmVydGlj DNvmHOjcT136DRTduNxj PkNvZGluZyBEYXRlOiAg MTEvMjgvMjAyMzwvdGQ+ ZLJsDLP1mYfwYGTx uTIsLTduMv3ejIoywYlj KT1eEWVqqlxnGDLbxN8o YHDjtLRitHfoYD9fDOIq mwipi517LrFlQHN1 UXVnmNKqP2PpuZ7eJpZy RJGiSBWyY5IduSGjYBva I047KEeqVrY6NPTropOv J3TlXRZrxScqGaG7 n4T0Uw7Or4NtyutiK2Yq sBFgEzGiVgvxLYt5A6Pk PjwvdHI+FK12XDVyXK87 HAh7KIF1zLusKYem PMOwH5YqcX0yNtEcJTAf ZGRkOyc+PHRhYmxlIHdp ZHRoPScxMDAlJyBzdHls CH5hQh8zXTFqEZVh nEngfZPfKeQvg3uyGYGl SUybCO6yaWzdU1HwiAX6 VRTwb2h7Xj02T78wC7Nn dXA+AEXqwQO2nPO3 aI7jRcMmOhX4GAejB588 BwDztXAuUtktl2diw5cg sHd6EvD6KLBlkcQviMip DEC5i3LqZq48W83j IHdpZHRoPSIxNSUiIHZh sVznvt5emR0xMz2+PGNv dKO8hHJ8rS1oWqRkXbM7 GXvwD343FmNbyPBj Uxotz2pwr0puwVs3EaKq CCAmcxLdkCvhCDY9w4Xe To27J0MqxAsew3BkBfk2 om77hWLin3Q6wKK1 I8TmVQDbihlwgROabDfy SZ3rTRZctzfhKOBbbR7w ZYZzX8q6IfMvBfG9MBcc U6WlqmE3VQNufLTx DNSpyFUJsP8qcnjpz8mr cxdsDlCoKRIfNQy5ZWs4 ZUKgrXefGjYdQRS1ZyA4 VCE3qQTydS1ymEqy wppeuQ6rDua+RHZ4zNZk kVILGQ4vTjmycPE+PHRk MHS1xKwnWFvzOTFhwZ5b XMWfE3t7KyGpOcQ6 MLilU1LjlmH8YGJvfOWx DBWulYZWpU7pgzige7tt rqdiIwMjGJMwOYt6PWm9 LWFsaWduOiBsZWZ0 BdA7VKL3kWRquV2zpYfb wkeplM0aOyv+QmlydGgg DFC5CLj9I5QcQva2IAVe sEtpRD9bkLWfWZxo Rk7ciDzauPmiCU1dMAHd ffgxx555AxUnj0anESUm iZZdXKxnMTV9E10yy8W9 NPTgHBTjUNK7nSM8 fO1fcSoistnvpBSpmVgb moGdyApzDRpgFJatT094 GSJlaMrqJpEhSQr2F3Rx Okw6VCUorBoqYT9r gJZnNDnvEd7vkIlycIfz IE9yJKDbvypne617FaNn a1taAFZwuZFuNGivNCQ8 Y47fq0L9WMHiUICe FNZ8rBS5nK2euImeywmv bGVmdDsgdmVydGljYWwt MQjwV724NKLzoLauTnBq sZz0E4QdIgh4DXKh kOrwYK2efVIwTGmpWt2k cBmizWflYH9yPEGxfntw g768LjSat9vwVMGgtFLo TQrrCSK2K37os1L6 LXUaAMLbJXJ1iWH5qS0c bGlnbjogbGVmdDsgdmVy vAnrNDznKPdxB863VXUc cDsnPlBhdGllbnQg SKgzRMq2N7YiLntivMW+ RM77GNUrEE04xXNgxCBm b3nelYs9OpUmANNmARM5 xPdzSWqit1JcGJBz J37drJRxh9B7PIBhjKof xCSrYxZsjCP2gD5uPQzm kqiob2qiscezFbsso9if rd85vN04P10mQQph ZHRoPSIzMCUiIHZhbGln ik0bqI4uLr6+PGNvbCB3 yCV7vS7xJWEfYiO8TXbf B540WbKmcPFuDtrl g4gjm8qwoZs7MfH1YWNu udZceRyqRIY0w8EqVk10 E95wJCutSTQnMBIyXAAu BXAfxKvgnp5mqI7i Ii8+WYCtoPO9bPH1nS9b YvJeEeF6WNjdY353SqGk cWDlThaxC65kQ0QwbKI+ TGCpHxs1PQIssMye QF7jbYTqALcyFf8lZEB4 VmFcMuQpZUzbU6CnLTYl zugwcxvizLL0PIIzQDNb yP44Qo4kzRlaFKRn xIDLuJ6swcojg3tjohbq HgJrJCCoXEb5DQb1FJSl mInzWcSfVMF7KvD4OEO5 pLIpbD7ihHdfarmh nK6tS4KgWRRholfuYk44 aB5dMxCzKgC9JOgoIxm+ B7cPWeQIVTkuM1fUDQXV ZXxDDS5QRTzwwVA+ LWGaNIM1yFmxOUztBSFb aG7gTSRhN2o5YaRsEbR6 QQgaQ7UwUYTqgcynRx99 yW7bVhTfWrU1UQav A6AfkeQ9IHZpnUPjBFjz JME9T36dd5Z5RUAxSYOx XGM1sMS3qH1meWlkkxky bGVmdDsgdmVydGlj GNfcIHewR150CDSgvAut LcB3OiQtHnPhSOF9U2Le Mnx0TWJxeSayZJ5inCXy XLfnDi0dwBezuUwq PL5zULMhpxgbOONvoM0m QNPfcSDffBjgID5zXKCx wgvqe571YzKuWRZ5GJSg fMHhM6QxlZ7lIlAz ERQiIXApF9NrxSRwNCcv Z615NEolUhB0DUIlrnSf D8IgUJWmaWvwNxK3d7Z8 Az0kVKUHZHOvxbuh dGQ+DOEoPTG5kFooSHqp EGRpsZ0gNKOlT9t1CsAq GxK7FYluS1GnMESfxrcb Jq90hG0bKhBaGvJ4 BWlnD9CbndV0OPYnuGFc KDloCIB6E77rd0N6SGGh UGMsLGT1mXN0sV3xdDab bjogbGVmdDsgdmVy pJefYJruEXfoI205IVNl cDsnPkZFTUFMRTwvdGQ+ OQWuGZP2nJyyQUgzLQQh mU2bFNAkF6o7QkXu NqS8CRvmE2JuJNQkyqle Au41pE2zFlRfKwP8ORxl H3RwpeF1LRZbvLVbCQgf RFF5L62xq0R5ZZWx JXEtSLL5hLC2pB3bsOmv bjogbGVmdDsgdmVydGlj DKhoUOwnN752EFZenPoh Kz2NIG51AW00L1Sy PjwvdGFibGU+PHRhYmxl IHdpZHRoPScxMDAlJyBz xAwhUW9oSg4bQVSmFZEf uQueoWPzWaIoq9ac TSRxKPtyEA4mkQcuK1Oz pQN9WFTjf3v8Ld64R97n P9CxbAL+HZNmdJT9sPJ1 tV8sCtNnZeU4RCns S456AvUmxTRnLcfey5kw z0gwbUj1UqQpUHMxdzKa qArlHCE1i1NpJb96N85q IHdpZHRoPSIyMCUi SXElrXsiti7lqW2oWf1+ LTWzbRV8oKU0rW1pJsWp FuO5LMxwL762RkGuzPFp JbddB60nI0OpzOD+ KHXcZac2TLCgjRbfFI5w dUIcZLjuDs7kWUN1GyHp YdSiFFpjX3MyPLJkavcl qiuafMN7SNPfYJOp sA19Gc6gfJvfWt6yYIZx NYD2TLDynGNfB7SgdX4g BkGoJYNgOXCkW7NbjMSe KAvhU854MThrUoE3 ERAjeiVhP3FxHUXkfGff QeW8d4A5Vo2HpQimpGAh BD5bQpOoYHd3R7QbQlc0 XBEhdHbfSV5weMPg RQlnHb2otYmeiJanYV1e RADhgyqoa461TnKzw7tm HYGrzDZrHJyiADT0J03o i6J0KYXzMSOqSAM2 xYE1bW9btGjgkajocFYa dDsgdmVydGljYWwtYWxp U807IZDuaZqaRqQCOym4 J5SpRep1TBDvrPno WD9ohIZxHMojPs3mcGmf uIoyDF9jETFmnuesv934 UrPlo7lfPKHpfBZqRUvp LZQ3K37zy6R8HJAu HOWkKST2nGF7iP8xlCei bjogbGVmdDsgdmVydGlj ZLhnPOxwE197QKUieZpf Zl6MMcz1D1XjLiv0 PXUgaBvnFO7hoKDlHHdg Yy1acChwmGpgDE6jRUCr bebcn598OwCht2gcKLJk zUGuCRhuKGY2J01c c1T4JKPuVJHiKOO1eAM4 iN1bnOfmdygowLIyoXvf fhXyhEepMPgeAIecV693 IHRvcDsnPlBheWVy OjwvdGQ+JP95ol46S5Dg NlfgObu3UXOtWWU9eZB8 dP5vCSWsYVyjq9E2qFE4 P6QnnuFigu6cj5oy YXB (more content not included)... [facility] C Throaton 03-03-2023 C Throat Ordered by Radha. Normal throat jonny isolated No pathogens isolated [facility] Comment on above: Performed By: #### 6 [id number], [id number], [id number] ####[facility] (DEFAULT)[address] [place] [address] .QC SARS-CoV-2 (COVID-19)/Fl u/RSV (GeneXpert)on 03-01-2023 Internal Control Pass [facility] Comment on above: Order Comment: Order ed by Radha. [[email or web address]] Performed By: #### 6 [id number], [id number], [id number] #### [facility] (DEFAULT) [address] [place] [address] COVID/Flu/RSV (GeneXpert)on 03-01-2023 Flu A (GXpert COVFLURSV) Negative [facility] Comment on above: Performed By: #### 6 [id number], [id number], [id number], [id number] #### [facility] (DEFAULT) [address] [place] [address] Flu B (GXpert COVFLURSV) Negative [facility] Comment on above: Performed By: #### 6 [id number], [id number], [id number], [id number] #### [facility] (DEFAULT) [address] [place] [address] RSV (GXpert COVFLURSV) Negative Normal [facility] Comment on above: Performed By: #### 6 [id number], [id number], [id number], [id number] #### [facility] (DEFAULT) [address] [place] [address] SARS-CoV-2 (COVID-19) RNA MILY+probe Ql (Unsp spec) Negative Normal [facility] Comment on above: Result Comment: Perf ormed by PCR methodology. Performed By: #### 6 [id number], [id number], [id number], [id number] #### [facility] (DEFAULT) [address] [place] [address] ED Clinical Summaryon 2022 ED Clinical Summary [facility] - Emergency Department [address] [place], [place] [id number] ED Clinical Summary PERSON INFORMATION Name: LIA DESAI Age: 22 Years Sex: FEMALE : 2000 MRN: Acct#: Visit Reason: Cough; Throat pain; COUGH, SORE THROAT Arrival: 03/01/2023 14:12:36 Discharge: 03/01/2023 16:04:00 LOS: 000 01:52 Check In: 03/01/2023 14:12:36 Checkout:03/01/2023 16:04:00 Address: [address] [place], [place] [address] PCP: Provider, Unlisted PROVIDER INFORMATION Provider Role [...] verbalizes understanding of instructions given Comment: Normal [facility] ED Note - Physicianon 2022 ED [...] Resolved Disease caused by 2019 novel coronavirus ([id number]): Onset on 11/23/2020 at 20 years. Resolved. Comments: 11/23/2020 CDT 16:07 CDT - SYSTEM Problem added by Rule (IC_COVID19_AUTO_PRO BLEM) following 2019 Novel Coronavirus (CoVID-19), MILY Linda from Nasopharyngeal Swab collected on 22-NOV-2020 16:44:00 EDT tested positive for COVID-19. no history (632251633): Resolved. Contact dermatitis (95308361): Resolved. Pharyngitis (4726797943): Resolved. Cough (78762437): Resolved.. Surgical history: Tonsillectomy and adenoidectomy (497382988).. Family history: No family history items have [...] any worsenin (more content not included)... Normal [facility] ED Patient Summaryon 023 ED Patient Summary [facility] - Emergency Department [address] [id number] PATIENT DISCHARGE INSTRUCTIONS Patient Information Name: LIA DESAI Age: 22 Years Date of : 2000 Reason For Visit: Cough; Throat pain; COUGH, SORE THROAT Arrival Time: 03/01/2023 14:12:36 Primary Care Physician: Provider, Unlisted Attending Physician: Tom Smith DO Comment: Visit Diagnosis: Diagnoses This Visit Asthmatic bronchitis (J45.909) Cough ([id number]) Throat pain (187288418) The Pharmacy at [facility] is open Saturday through Saturday from 9A [...] contact the Mental [facility] 29/10 Crisis Hotline -Text 4HSJO fl [phone]. If you received any narcotics, sedation, or [...] and treatment you received today in the [facility] Emergency Department were for an urgent problem and are not intended as complete care. It is important for you to follow up with a doctor, nurse practitioner, or physician?s assistant teacher primary for ongoing care. If your symptoms become [...] so we can reach you if necessary. [facility] Emergency Department has provided you with a complete list of medications post discharge. Please inform your primary school teacher librarian/provider of your visit and for further instruction on these medications. Any specific questions regarding your chronic medications and dosages should be discussed with your primary care physician(s) and/or pharmacist. New Medications [facility] [address] [place] [place], [place] [id number], [phone] albuterol (Albuterol (Eqv-ProAir HFA) 90 mcg/inh inhalation [...] Acute bronch (more content not included)... Normal [facility] Strep Aon 03-01-2023 Strep procedure control Pass [facility] Comment on above: Performed By: #### 6 [id number], [id number], [id number], [id number] #### [facility] (DEFAULT) [address] [place] [address] Streptococcus A Negative Normal Negative [facility] Comment on above: Performed By: #### 6 [id number], [id number], [id number], [id number] #### [facility] (DEFAULT) [address] [place] [address] C Throaton 02-28-2023 C Throat Ordered by Discern. Normal throat jonny isolated No pathogens isolated [facility] Comment on above: Performed By: #### 6 [id number], [id number] ####[facility] (DEFAULT)[address] [place] [address] ED Clinical Summaryon 2022 ED Clinical Summary [facility] ? Urgent Care [address] [place], [place] [address] Clinical Summary PERSON INFORMATION Name: LIA DESAI Age: 22 Years Sex: FEMALE : 2000 MRN: Acct#: Visit Reason: UC - Sore Throat; SORE THROAT, CONGESTION, BODY ACHES Arrival: 02/26/2023 09:55:01 Discharge: 02/26/2023 11:28:00 LOS: 000 01:33 Check In: 02/26/2023 09:55:01 Checkout: 02/26/2023 11:28:00 Address: [address] [place] [address] PCP: PROVIDER INFORMATION Provider Role Assigned Unassigned Errol Ortega ED PA 02/26/2023 09:58:25 Birdie James PET ADOPTION COUNSELOR Nurse 02/26/2023 10:17:32 VITALS INFORMATION Vital Sign [...] verbalizes understanding of instructions given Comment: Normal [facility] ED Patient Summaryon 023 ED Patient Summary [facility] ? Urgent Care [address] [place] [address] PATIENT DISCHARGE INSTRUCTIONS Patient Information Name: LIA [...] to help relieve symptoms, such as: ? Vmxv-xbx-bwabxgm cold medicines. ? Cough suppressants. Coughing is [...] other clear broths. General instructions ? Take fyar-djm-hxtsruy and prescription medicines only as told by [...] infection to other (more content not included)... [facility] POCT Rapid CoV-2 (COVID-19) Antigen/ Flu A&Bon 02-26-2023 Influenza A POCT Negative Normal [facility] Comment on above: Performed By: #### 3 [id number] ####[facility] (DEFAULT)[address] [place] [address] Influenza B POCT Negative [facility] Comment on above: Performed By: #### 3 [id number] ####[facility] (DEFAULT)[address] [place] [address] SARS-CoV-2 (COVID-19) RNA MILY+probe Ql (Unsp spec) Not detected [facility] Comment on above: Performed By: #### 2 [id number] ####[facility] (DEFAULT)[address] [place] [address] Strep Aon 02-26-2023 Strep procedure control Pass [facility] Comment on above: Performed By: #### 6 [id number] ####[facility] (DEFAULT)[address] [place] [address] Streptococcus A Negative Normal [facility] Comment on above: Performed By: #### 6 [id number] ####[facility] (DEFAULT)[address] [place] [address] Urgent Care Note- Provideron 02-26-2023 Urgent Care [...] Resolved Disease caused by 2019 novel coronavirus ([id number]): Onset on 11/23/2020 at 20 years. Resolved. Comments: 11/23/2020 CDT 16:07 CDT - SYSTEM Problem added by Rule (IC_COVID19_AUTO_PRO BLEM) following 2019 Novel Coronavirus (CoVID-19), MILY L from Nasopharyngeal Swab collected on 22-NOV-2020 16:44:00 EDT tested positive for COVID-19. no history (989820168): Resolved. Contact dermatitis (53253855): Resolved. Pharyngitis (8653809582): Resolved. Cough (37672801): Resolved.. Surgical history: Tonsillectomy and adenoidectomy (231678321).. Family history: No family history items have [...] collect, Matilde (more content not included)... Normal [facility] [place] 023 Urgent Care Record [facility] ? Urgent Care [address] [place] [address] PATIENT DISCHARGE INSTRUCTIONS Patient Information Name: LIA DESAI Age: 22 Years Date of : 2000 Reason For Visit: UC - Sore Throat; SORE THROAT, CONGESTION, BODY ACHES Arrival Time: 02/26/2023 09:55:01 Primary Care Physician: Attending Physician: Errol Ortega Comment: Visit Diagnosis: Diagnoses This Visit Myalgia (M79.10) Other viral agents as the cause of diseases classified elsewhere (B97.89) UC - Sore Throat ([id number]) Viral sore throat (J02.8) Viral upper respiratory [...] and treatment you received today in the [facility] Urgent Care were for an urgent problem and are not intended as complete care. It is important for you to follow up with a doctor, nurse practitioner, or physician?s assistant teacher primary for ongoing care. If your symptoms become [...] so we can reach you if necessary. [facility] has provided you with a complete list of medications post discharge. Please inform your primary school teacher librarian/provider of your visit and for further instruction on these medications. Any specific questions regarding your chronic medications and dosages should be discussed with your primary care physician(s) and/or pharmacist. New Medications [address] [id number], [address], [place] [id number], [phone] dextromethorphan/gua ifenesin/pseudoephed rine (Capmist DM 15 mg-400 [...] their own, without (more content not included)... [facility] Coding Summaryon 02-22-2023 Coding Summary HTMLBase 64 PujlfoziYIk5vLz+PGhl YWQ+BC5CEGKhK85abCLr jY8yN9XDNIiHPkrsYSEW XVrHZiEqrcIdHQ5caRIz ZXJu IC8+ZE7fXOLtCaswtEWo n2J6oQV2Z89yvq6eLEhv nNB4WNLuSpLaqfkqh9uo zNs4GXuiIjbbXvPm BBQueO97LVU8iT92Jl25 hWDzsSVkp8pmcIk3KfHz IJFbGRA1vEvuGSoes1Oy QWElX41hcVGmm5Q2 IGNvbGxhcHNlOyBlbXB0 bV5rXFtryqtvb3yjtlzy Xba8qq93lNDlj5E4gQI7 N4KgqcL2OESedZDs TotggKVNwS9oppyep7xw dwprOoUpZAXsEDk3TAz5 UKQhbLssBwGcDL54HLQ0 QDWbjaCpI3PjEFXl wQnwCuY3a0T9Wj4ME7ET FcahC6QCWTZNWHhuoSD+ GV98sy93G6BaXpazVme0 YCXtFCW4hTY8eO1d UBDdAGzpe0A0tWK9T7Kp omIpdg6da1noTTIbXIfm P58ygYQhq4K2WPYmtTU9 GIMmeMveGhGuqF07 Oyc+DNHlvKral8FbUjvp i7dyb9fyeCm0UvwhARTo kuHwnJwuZIQ1e3ZkYo3p ZMOveSB7eFF0mJ3f WbAvMjI0NAfzN010ImIy lAKwZwxgY12pS1CxqLG+ TLYoOsr2HOPpzPvrVC3v A8QhAFEqgruniNEp kAvfOD7rQKXslcamYFCa yY4wUOPwB1b6SfSyOzZ9 BEzuV9HkJHEcrelbOu77 zP3qWuCnWtR6LHnu M8KwgnL7JGBulXDmMLhj DCU4B32vv0A7MLXbDGSp DNY1sZN6vK0kxCcnejdq bGVmdDsgdmVydGlj RWvnYShjD034ZJPlpGic PkNvZGluZyBEYXRlOiAg MTEvMTcvMjAyMzwvdGQ+ QZEfXTR7dKyqTYCi rTFvCJxdVm1glKqrvMha XN1mBJAcfoayAVBdaS9e LZWnnNXgpCpwKH0fCANu bsako534VjQyJHI3 BNMvkFNpA7BuhO3sHsGz TJXmWXCdH0FyaRZaCPhk T868ZZbuNjY8SJGupqHg V8BtNNAfuYadTkN1 r2C4Eq5Wx6PusoblC9Li bTFwUgEeRsuiICu0W8Ct PjwvdHI+MD97WYIuCA18 LEu4JMS0rHfeDDer WFEdS5NleZ5fUoKcOVYg ZGRkOyc+PHRhYmxlIHdp ZHRoPScxMDAlJyBzdHls HQ4pRs1cEDExBFJr lAnzuEJnTrQzo7toBNTh NTyxEO2ybVmxU8MejCE7 DFRrn2u7Sc21A80vN7De dXA+CFEduSF3xRM0 sI0bTaCpNaH4YXbwO536 AkGvwOWfOkdgv4ydc7zq cBo7IoJ6PUBfsoCmrMcl PNQ1r7WwEs99R79f IHdpZHRoPSIxNSUiIHZh aAnrzp1xgJ0bRz5+PGNv lFE2mHZ8aH8bCwApZzW3 XUchN950PfCbdLPp Dtqer0rpm4puzVt0LnGl OAJnpyQxaEpfZPS1r7Fh Tw84W4GriOvxw5NfYon4 ik00cOWdj2C7cXB0 V1JgEIJschrvxFZxxPfh KU6iRPUnjyjiGHRxpI7l MYAjP0l2IrUjDuQ8OPvk G6KivvM9PCHqpCGx IVDpbVBUjE7bpfgns1rz szerXuWvCSQvWPi3JOc1 FGVhfNesJyIlQVX1YmU8 OMO5nDIeyZ9gcYrp yizlsK3oVui+TOM9vVQb uULULQ0kLztzpLD+PHRk PEE9yQouGAftGZFshT0w LVMsP1o2WpSsYlE2 FTviT6OawoM5SMXzrSCp IBJswNKBjL4zopbdq0th gaipEzZoJPMoRVe5EGu4 LWFsaWduOiBsZWZ0 ZeA1TMS1uZNjvF0wtEtm cnqrbH4wKtm+QmlydGgg VWZ9SDf0H7KcJey4FNSw gLhvIC5qtVCgWEee Ma7dgDnliNljTF9iMUGz lsjke595RvUgk1owINYn kYLiEJqtNTO7R47rf4E8 KOZvCJDgSSR5wYS0 jP2ykQasdmqmzTWhlCiz prRprMwbXWknWZvrW974 PBFpfYdlPjIsNEh8V9Ih Ajm8BTJmiSwlBP7e aFAeTCubKe5zlGqnaIeh GV6pEAGkcisoy106RdVt l5sbCSXqzVBdKVagWTD4 W60pq2A0KZFtTAKs RYT7dIQ2xY4xmJarklgx bGVmdDsgdmVydGljYWwt QVreU554LHBbdIhmRwBt kSr6Y9IjCbo6GAGx kGkgAT8ygHLvSHxrRs4n xLfhwCozGE6kPBEqpdux v869SzUyu1ixHSNtpIIa XSkzHCG5D83zo8R5 ENSyIBGhOVZ0uHN4nL9c bGlnbjogbGVmdDsgdmVy eEvyXZizYEinQ665XZZq cDsnPlBhdGllbnQg ZCejCDj8F9EjAdbzpUD+ GE20PZHgYE51kNEbtPQt k4qydPl4AdTvHMJlHAC9 cZunTNcua7CsPIJf F36fkANsl0K1DJAdlSmu nGNgAiQvzQK7gE1rLNib gfcmn7seazndExdjk0xk yz87dX56H33iBBbu ZHRoPSIzMCUiIHZhbGln ef8bgG6wUn6+PGNvbCB3 mCE2mV7lOLFoGnE4LMwc C856BpOrpTYeTsuv e7rqn8jpiBa6KvG7ZKYs cnDyyCjkTQJ7s6CbNc10 N44xZJutVNXoRPLpGIUi EIMedDhzdf1hnS5k Ii8+OXHdhJM6pEO1cX6k CtRpIrW2EPhaF551TiBq iTEdGlyaF60kJ9ZmjNH+ QXNvKsb1SIAajDyk LB1mdGYjLWiuHg5tTLX5 AcArNjBsCXsuG0HdMGKf kfgqnstsvCF3TBZeLZSs zR91Ni9bvCmlSVYa uMKQfQ7wcmmdj2mzqxbb XqEsBPXdALd1KLi6YJEw dWxtNbHkHLE7LzL1KAP5 xIBdmN3emGhbkxig oN4lD1SjIFIijjhtPw65 mL7cDrSaHvW9DIuiZmn+ R2hPPaDRVJlaG4lBPZZV AJzAKB2RKYzlxBJ+ NSDbTBM8zEfxDJsxHGKg nI6wJJSpH2z0PeEtFyS7 XPuuR8KeMOOnwbffXg89 aP4iKsFpJoI1JBki T2OrrpH0PATxyQVjTOye XCX3C03fx2X6MXLaPKSn QUV8xON1nA9znRqygufo bGVmdDsgdmVydGlj OMczRTxcP509EJXitLje XqO5IrApZmQcFGF1X0Qe Nuv9HMDzyBseDV6dzCVq HBajWu5eeUjrmUwc UZ3gLDMjbpbiTFRseZ7d GWMjmRUktLzwWL9zJYRq vnmrj176VyNsONP9ZMBl rOIjE7HhyP5zHwIc HBLsARWlQ4MihMQgSGgz B068QHvlEyE8IIOpmvBr B1PmDWEblLpyAgW8p5H3 Li7hXJRHDANmhqxr dGQ+VUSaTKP0dHbiOYrp FTJjvM5aHCQoB8u9DwDv ZmP6XUqlS5XvHWDgxfkl Mv03hH3gZdBbSyZ7 DXhuD6PfgnM4EOSciHJc OQcoJTE9R47uk5T5UTTr BJIhIVL7rHC2lE7hdXup bjogbGVmdDsgdmVy sHzqLDtqNUopW820PSCu cDsnPkZFTUFMRTwvdGQ+ DTTiYTZ3pIkcJSdxURGc wI3aSYRpN2r6LkGd WaE2WTvpE9UmKLZjfqcw Qj36dP2dImSxQlY5LUfg H3YmlqY6OVMnzBOdUFzj LQM6L58iv2O6KMHd BBLdTBK3mFA0tP2pjOhw bjogbGVmdDsgdmVydGlj SUfvOMpnB967VERfxPmp Fh5AFJ33YJ50E6Ci PjwvdGFibGU+PHRhYmxl IHdpZHRoPScxMDAlJyBz aJjsVO1ePj5mSFPySZIh aSbrqBUzBkEoq9cz KRPrEGszAT1ekQbqD9Ha vZE0PAXps6a1Gt34S01e G5VwtDK+REMvuTQ5zXZ2 mD5zOrAoUkQ2XUeh Y640WySmlHKlSyqbd7il r9kbmFx2GuBsJAZjpkJl iVaqRUR7u0UuAe06R46e IHdpZHRoPSIyMCUi PSGxrCqddn7hbK0aXu4+ VAHanFT7yNF6pU5wGpUb AhX0AKuzO321VeBnzNFn JzcjY69hE6UrsGO+ JSEqGuc1TLGgmUrvVX0f mDXfTKuqUx8jZXZ1IxAo JnEhNClsL9MoWQAfhknz zouhdHE4KLJlNQQn wY19Tg7llQfeXy2dTCQf MBE0BPIoxUIdG9KznY8s XwZmHYZwMPZdY6AogJOs RIxrX446VOmzWhV6 WUVrrfOjY6OeLUBbrKds UjD2w3E6Se2TsJhpbPZy NM1vAqHsSKg3I8LuVbk1 NAEugMdsUF0gwLHp UHxuYm9grYrphBtgDH1s JLAzfrtwc678BcDep9py VFLfmTVvCHqgEXV1P00w j7D1VAFuTLIvSNI1 wRT0oL2hqQyxpihspXQl dDsgdmVydGljYWwtYWxp N010IBZeuYbeDnVYHak9 R5JyVos3ZVRbqTvx HV6eyGGgLVtqBv6fyQjg vPwzPZ9kDFVzkbcof877 GyYof8buPEEdyBSkNFwc BKJ1S73jt6J2VGRz QYCoFBN4wIL2iY1pzJuo bjogbGVmdDsgdmVydGlj CMqpUIvdP164XHMwjNmq Fn8GZeh1Y7HzLzr8 NONybNzdKC6oxTSwRJwx Oc7gzWzlpNjcPJ0vLIOu pvetv726IiYxm7aeGVMa bJQwMUibUYG5E94r t7L0GHLmDBMeHKJ3aHQ2 oQ9znWbifnyokCRveApr pbAdpHqcRWfhEQyvC887 IHRvcDsnPlBheWVy OjwvdGQ+VI13yw96T1Df IpfgFwp0OJVqKRK7tED1 uI5fOHLeYKzem6V4fMQ5 L6NylcIikx5tf7of YXB (more content not included)... Normal [facility] ED Clinical Summaryon 2022 ED Clinical Summary [facility] ? Urgent Care [address] [place] [id number] Clinical Summary PERSON INFORMATION Name: LIA DESAI Age: 22 Years Sex: FEMALE : 2000 MRN: Acct#: Visit Reason: UC - Wrist/Hand/Finger Pain or Swelling; LT HAND INJURY Arrival: 02/14/2023 17:07:31 Discharge: 02/14/2023 18:05:00 LOS: 000 00:58 Check In: 02/14/2023 17:07:31 Checkout: 02/14/2023 18:05:00 Address: [address] [place] [id number] PCP: PROVIDER INFORMATION Provider Role Assigned Unassigned INA MILLS, DORA Oglesby ED PA 02/14/2023 17:09:37 Indu RN, Florina [...] Cold Therapy Follow-Up: With: Address: When: Regla David [phone] EXT: [phone] Call for family Physician Within 3 to 5 days Comments: Call for help finding primary care provider. Follow-up for reevaluation. Continue with rest ice and elevation using ice 10 minutes out of every hour as needed. Return for any worsening issues or any other problems. With: Address: When: [facility] Comments: [phone] DIAGNOSIS: Contusion of left hand; Left hand pain Patient Understands: Yes - Patient/family/careg iver verbalizes understanding of instructions given Comment: Normal [facility] ED Patient Summaryon 023 ED Patient Summary [facility] ? Urgent Care [address] [place] [id number] PATIENT DISCHARGE INSTRUCTIONS Patient Information Name: LIA DESAI Age: 22 Years Date of : 2000 Reason For Visit: UC - Wrist/Hand/Finger Pain or Swelling; LT HAND INJURY Arrival Time: 02/14/2023 17:07:31 Primary Care Physician: Attending Physician: DORA JASSO Comment: Patient Education With: Address: [place]: Regla Hernandez [phone] EXT: [phone] Call for family Physician Within 3 to 5 days Comments: Call for help finding primary care provider. Follow-up for reevaluation. Continue with rest ice and elevation using ice 10 minutes out of every hour as needed. Return for any worsening issues or any other problems. With: Address: When: [facility] Comments: [phone] Hand Contusion A hand contusion is a [...] elastic wrap to support your hand. ? [id number]-[id number] medicines to control pain. Follow these instructions [...] or lying down. General instructions ? Take [id number] and prescription medicines only as told by [...] provider. Document Revised: 07/13/2021 Document Reviewed: 07/13/2021 [employer] Patient Education ? 2022 [employer] How to Use Cold Therapy Cold [...] the area (more content not included)... Normal [facility] Urgent Care Note- Provideron 02-14-2023 Urgent [...] All Problems (Selected) Anxiety / SNOMED CT 00388758 / Confirmed Acute depression / SNOMED CT 1938139313 / Confirmed Chronic post-traumatic stress disorder (PTSD) / SNOMED CT 260837880 / Confirmed Pharyngitis / SNOMED CT 7241518612 / Confirmed Cough / SNOMED CT 22175613 / Confirmed Objective CONST: -Well-developed well-nourished. -Acute distress: No -Vitals: reviewed. SKIN: -Gross abnormalities: No NECK: -Supple (qqku-xx-kxkey): non-tender. CARD: -Rate and rhythm: Regular RESP: [...] and Plan: Diagnosis: Contusion of left hand (BOY15-ZE S60.222A), Left hand pain (CZB88-SR M79.642). Orders Orders Patient Care: Brace/Splint ED [...] on: 02/14/2023 18:01 EST] DORA JASSO Normal [facility] Urgent Care Recordon 023 Urgent Care Record [facility] ? Urgent Care [address] [id number] PATIENT DISCHARGE INSTRUCTIONS Patient Information Name: LIA DESAI Age: 22 Years Date of : 2000 Reason For Visit: UC - Wrist/Hand/Finger Pain or Swelling; LT HAND INJURY Arrival Time: 02/14/2023 17:07:31 Primary Care Physician: Attending Physician: DORA JASSO Comment: Visit Diagnosis: Diagnoses This Visit Contusion of left hand (S60.222A) Left hand pain (M79.642) UC - Wrist/Hand/Finger Pain or Swelling ([id number]) If you received any narcotics, sedation, or [...] or sign any legal documents With: Address: [place]: Regla Hernandez [phone] EXT: [phone] Call for family Physician Within 3 to 5 days Comments: Call for help finding primary care provider. Follow-up for reevaluation. Continue with rest ice and elevation using ice 10 minutes out of every hour as needed. Return for any worsening issues or any other problems. With: Address: When: [facility] Comments: [phone] Medication Information: The exam and treatment you received today in the [facility] were for an urgent problem and are not intended as complete care. It is important for you to follow up with a doctor, nurse practitioner, or physician?s assistant teacher primary for ongoing care. If your symptoms become [...] so we can reach you if necessary. [facility] has provided you with a complete list of medications post discharge. Please inform your primary school teacher librarian/provider of your visit and for further instruction [...] area. This is (more content not included)... [facility] XR Hand Complete Lefton 11-0 XR Hand Complete Left CLINICAL HISTORY: Left hand pain. Punched wall. TECHNIQUE: 3 views left hand. COMPARISON: 12/15/2019 RESULT: No evidence for acute fracture. No dislocation. Joint spaces appear maintained. Soft tissues unremarkable. IMPRESSION: No acute findings. Final Signed (Electronic Signature): Gavin Mahoney MD 02/14/23 5:54 pm Technologist: JS,[facility] Coding Summaryon 08-22-2023 Coding Summary HTMLBase 64 UhhzdacwPCi3uGm+PGhl YWQ+IN9UHXHlZ14jgYLd gM0hN8KVIMlLAsqyGUIZ DSrHHwQdfzQuXY9iwXYw ZXJu IC8+ZM6xKNCzZjinyVJb c6O7vLP7N62ckh1bPWha cUN3XDRkSbNrpotgy6wc vXs5BQvhOepmGmIi YAOkeT70RZB2yX05Gb58 xRTiwBLqj4qrnXu8HxVu GCHcYUS5zIknHEdth3Il ZUVyY74kzWTia8Q4 IGNvbGxhcHNlOyBlbXB0 rR9dSPnbcrjqx8ljgdti Ttj9ec35hCAxu7U5fNL7 L8ScivO0ZFGsiORi HkiclXSDdR4dynljr7ps rjvpCrKqQTNrZTj7LVs7 WXGooTvmSiKaYY30JAL7 GRNcsxNoT2JoBAAs pHlxAkD6d5R2Lb9DT7DQ FandH9RFDMGTZUadeKJ+ QE45zt35D4NdXmhvZme1 JLXkBWZ0aKI9uG0k KHGcFVcyv6L5vRY4P2Da mtTakx8sy9itLDYmKThw G91qxKSfr5K5KTSroST1 TKIdmEtfTuYgaX28 Oyc+NQEiwMxkk4ZlTaom g3brd3mlvJg0ItrgCSGj urLnwMfxSJZ3x9MpHf7d TFAobDI7fFJ3nD4g GmYxVeR4IDdmB514LjKr bBQaFnhnK38aV5MwlEC+ ANXtGeo7GRQdxQqbXK2a O6QyPMLecyjhgCOl vGvuZP4pKUMvjmrdDWQu zX6cWDPsJ1t9FeFdVoA5 WOhlJ0WwDIFxeshmHq15 jL3nNvDqJnL5IJor E4DqqpP4MVOztZBySZsl JSZ6Z28rz7T7JPCsQKUn AKB5hEP6dQ5pnCdxqksb bGVmdDsgdmVydGlj GGskZHqsS134TMHkdTem PkNvZGluZyBEYXRlOiAg MDgvMjEvMjAyMzwvdGQ+ IZKoGIZ1oPrlUIAt lRAlLFwrEa1izMylbHcu NN3cLQCnukruRBTyyF0i DTYplATubKvgKF6kMUCp jcxfe828BkVwPNB6 MRAfoZNnW6JmrO9yXbGg FKNgBYRnL7PuiKQbJGza H683TOyqEfR2GJIfmgHa A7FrCTDsvQnjBfI8 i0F7Xg3Bn6FoscqyO0Dc mRPiOzBdUebtPDt9K9Uo PjwvdHI+XQ20YBXcWU45 OTj0YAD5oXrfJTzt IYMzR5SkrT8rDeGbAMRn ZGRkOyc+PHRhYmxlIHdp ZHRoPScxMDAlJyBzdHls CA8yAz2mUGLxTPQq yIjwzSVrPbVxm9jiFPRf MRhzAA6ehBueI0FbzHR2 EBEfz5d8Jn92U05mV7Eo dXA+LPApeRZ2bGQ2 qF1jXgJxQsN8GAyiB691 RvYbrEIoIkjjl1pgo9jz wVp7QiL2VVWodfHwwYkd JPN7c4RwUy57I12s IHdpZHRoPSIxNSUiIHZh uXezff7geL2pHq4+PGNv nUW4qGR9uH0eDhVwHmD0 CJmdH662ShXhtSRk Aagas2xif3kiqEe8TmUg OPQfttHsdBapWVR3q0Cf Ak00R5NflZatf1HkPjy1 xl23zEYan4L7dME6 F2OiHZDxajvpkBTyxXya YY1rBQZfsedwJGEbaU7m ZEVxF0f1MqIsSxJ4OSef K5OtccP4HCQguCQh USBcvXDAhM0labzko1oh fefrZbByYKChMFx8MXk7 KSEhnKznYaXiZNB0XmP8 YGZ9tVJtdW8aeGwm cwizpL8kQnx+QWR8hOUh rEGAUF0oQirnrKC+PHRk MTW0pCttYChpVRMepJ8z BEDlF5b8TfCdRoS9 VYfoO3EbvkY3NPPigCPj XESbkKQJoJ5hnlqft1tm clcxFrDpUJQgPTa5TTl0 LWFsaWduOiBsZWZ0 MfQ3IAV1mAMohY7arPdn stdtjO1qZgu+QmlydGgg YOS0RZg6P9PgBiv2SWQh gIpeBF6brVSySSdf Cj6ssXmheKoqGV6kTDHy yiiwj704PcLdr4wdTEYk hPBnCXsqETL2P99bw4V7 SVZnJSRjPWF1qNF6 eM7jhPwlqljyqFJbnMns zaRkkTqyKNveCBspN001 OGSvdAusOqBjSEi7Z4Ra Wii7XNJwtJojNW0x yNXcGLstWu4ndHbwuSnb KX7dNJMwgicwo590FwYe c1egPKUjuIFlMLjfSVC0 C84qm7C3HNEcGEOy COL5xZU3gM3xjRpbrpmo bGVmdDsgdmVydGljYWwt GPfgF300ZKYsuBhnFbOo vLq4S6PrQvj2WOEx pTicWG7uaYHgZHeoGd4y yNwslQtxAQ5fBVMhkblw v373LlWjf0ghDNJpyFYm NEczWQD0B13wk6O8 DBSyRCQtOHF2rQF8aS8p bGlnbjogbGVmdDsgdmVy zZrxEMvkMFwyP688WNVs cDsnPlBhdGllbnQg LWswJSn6A9QdVjetcTM+ BY47GTKuKR49kNPmvDCt e4kmnNv2OjOjQSEaGBI6 xYhbEVzxa9XyLHGo V83dqOYyx5H9GXOjpLsl iBAiOlGpjHX1yD3hGTax mgkir6ciafanLhtgy9sg hk24nF80Z46pPSgg ZHRoPSIzMCUiIHZhbGln pv3sdT5gHh8+PGNvbCB3 eNG0rO2cAKBzBkU1UBwd L160YpQonIYdEkia c8scs3vdhGg0FlJ2WYLw uyZvrDshFHV1w9OdPe53 H46zIJfbXNCsDXGnUKHq TTIqfUryyb1dnO8n Ii8+RBKmvXQ3vKX9rU6a NsDuTkE0AAqwC534TsIz tFZnRksxW47uX0KftQZ+ ZLZtMav2MNTuxWde JD2ruNAsYJalKx9dBWT5 FzEjNtIjPBekP6BwZLLn jgorxifykHP6CRMlZRVe gF98Jy0unFijHMJw fHIKfF8uunewh4qqaexz VoVwZUGrUVc5ZFo7BBBu sRvhDqUeXFW3PhA0EUU2 xCPhlD5nmZrivexm vZ5fF9WcGLAofbuqYo88 zV0fJxUcJgL5MTgjDqr+ T5bRHsLCNAlfQ5iJGKIC KVtAAL0IGRddzDH+ QGOaAEU5zMfyOHenYAPb oH1pLQKwF3t5TxUfBgA7 YHljD2AzBDXuwgkpSm04 eZ2hHhSsWyW4LTmf E6ImhcV7IQOfkSYgKVyk PCJ2Z11ac8F1HMKbSVYp QCT6jZY4sL2ddMsjlrad bGVmdDsgdmVydGlj VNumGUbwL042QIClzTmy DzC9TvNhAwTqITC9D3Cw Xia0TKVgdLomOA9faYTc RZzaFc9xuQocqIqe ET5gVBUjcrzdNSNfiP4l SOQvgEGzySagBW4tJQBa ttyur410FhVxGDX7QTNp oWKoY8ZlhK1tDsLl TAKwTXXtM7AlxZIuSAwt T367XAfwYbN4RDOqwfAq S8CfZFBpyYjtFmY8b6D4 Vv6yCEOQGMNszhnr dGQ+RXCqEKK1pQkjOWjy XPKjfY4iDBDwR7g3LfTw DjM1FJkpQ0JeXVNivyva Kc63gQ7nMeXmMwV8 QTueM5JqogX3KCWpnVYe ZCrvYJI5B84xw6T1MJZe TJWoXEC6zHU1eW7kvHix bjogbGVmdDsgdmVy iLahJInwJJhmB802JTLf cDsnPkZFTUFMRTwvdGQ+ OACgFDU2tUyvWLoxJLAq dE6dERSrF8j1PzDq BcL4IYpsF7YsYVQlkfms Rc19xK0pQqQcXkD4KHoe A2CzxpN3SPIteIYuBMjo OGJ1G71hk7Y7SSZw QKSjQEO2dWQ2tG5omOmn bjogbGVmdDsgdmVydGlj LWceSSfuE249KDLdlKwz NaIkQKFpCZ8wnKnr dGQ+XO33gk81N6PeGbjx Gcj2ABOkIMQ8yJK4cY0p TLJzVHbwr9E6pID1Q7Yj izPixk2qs3ddEBXc KCkaM20irUBcp9S0GGJw vGX4PAJrmNjgHcLiwO95 Oyc+ZTErxHmqe1NdBleu f4ijd2vhvUp5EdFp SHVtfdDrbPbfKYT7t4Wr Hh32K97oQDhiTVAmULUj JRYuXWMbfFccrk7ldY9y Ii8+GOMznKM3kDT3 hK7rKfVsAlE4UBrlB234 FkEknAJbVqsjj2lfx1ev xAl0AmWcZHRstdIkhWkq XNL1p3VdLn98L9Dz qHekw9OzZdh8sl19uOMu w6J0mKW3X3LvNYImecmo oVLnaGwuIU8sZDMeffui ORBqdL4wDFBoV7j5 XgHxDpW8ZXjcM4MpliT1 DNVnkINuWSQvlJIPkZ7j ecltk2pgyczzRlJzXKMh FBr8WJq8TKHlkKhu AgRgVMK9AaV8RJP5dINw rH2jjXuirjdwaN1wMuu+ RNr5g5lylWLzNR6azPL6 LV44FE09bRPjk5N7 pZW7Y8InCNXiflgrpaft nSL1QHRcLNFhrN27Nj6n kPhkIt2gOHQoYHN6TSEz yNLiY9LjvE3dFiHq AFJxQFJoA0MlrZMfAQzq T959URtmKzC0BWOfmzQo N5VqNHWxdTbuQfS1d4Y6 Ti0TDF04WG84NP12 aNYyu5J7iOJ5D0ErSIDm bulzazovfAZ2RHFwDUCg dC23Cr4joFfhLk5jJGDf KZT4UQNekBMpJ3Ra gT5zAiCtFGUrIJKnJ5Sm xIUaHZjrI928DErfCtK1 NOWrutFnP9UqZDEjoVgd ZvG1w2H2Jq9EPf85 JZ15RN54tPGue6H2yKV3 A9StXPLrilsttqjodPX0 OCJbGZGlrT86Yv8wpYby Np8aYWJaNPA0AUIr iCVzQ9EryG2nFsYiGMDy AAQnL5EqwKZpFSvaS835 BFxoXjP7CITfiaRnW3Ig WMQniVicQuT3x2V7 Xm3YMNttnef1L9XnJsmz dHI+VP00ANIrOR18aIKo fAIyv1eieKq1WqUcRCBg EKS7gOgrKWllu3Wv ZXI (more content not included)... Normal [facility] ED Clinical Summaryon 2022 ED Clinical Summary [facility] Emergency Department [address] [place], [place] [id number] ED Clinical Summary PERSON INFORMATION Name: LIA DESAI Age: 22 Years Sex: FEMALE : 2000 MRN: Acct#: Visit Reason: Hip pain; LEFT HIP PAIN Arrival: 11/15/2022 16:28:10 Discharge: 11/15/2022 17:02:00 LOS: 000 00:34 Check In: 11/15/2022 16:28:10 Checkout:11/15/2022 17:02:00 Address: [address] [address] PCP: Provider, None PROVIDER INFORMATION Provider Role Assigned Unassigned Anusha Palomo CNP ED PA 11/15/2022 16:30:26 Jayne Zuñiga PET ADOPTION COUNSELOR Nurse 11/15/2022 16:32:34 VITALS INFORMATION Vital Sign [...] verbalizes understanding of instructions given Comment: Normal [facility] ED Patient Summaryon 023 ED Patient Summary [facility] Emergency Department [address] [place] [address] PATIENT DISCHARGE INSTRUCTIONS Patient Information Name: LIA DESAI Age: 22 Years Date of : 2000 Reason For Visit: Hip pain; LEFT HIP PAIN Arrival Time: 11/15/2022 16:28:10 Primary Care Physician: Provider, None Attending Physician: Bennie Sharp DO Comment: Visit Diagnosis: Diagnoses This Visit Hip pain ([id number]) Sciatica of left side (M54.32) The Pharmacy at [facility] is open Saturday through Saturday from 9A [...] drug addiction problems; contact the [facility] 29/10 Crisis Hotline -Text 1XKOX er 779550. If you received any narcotics, sedation, or [...] and treatment you received today in the [facility] Emergency Department were for an urgent problem and are not intended as complete care. It is important for you to follow up with a doctor, nurse practitioner, or physician?s assistant teacher primary for ongoing care. If your symptoms become [...] so we can reach you if necessary. [facility] Emergency Department has provided you with a complete list of medications post discharge. Please inform your primary school teacher librarian/provider of your visit and for further instruction on these medications. Any specific questions regarding your chronic medications and dosages should be discussed with your primary care physician(s) and/or pharmacist. Medications That Were Updated - Follow Below Instructions [facility], [address], [place] [id number], [phone] Updated: predniSONE (predniSONE 20 mg oral tablet) [...] Stop right away (more content not included)... [facility] Progress Note - Nurseon 11-06 Progress Note - Nurse Patient walks to room 6. Patient is alert and oriented. Patient is here for left hip pain. Patient states Saturday she was in the shower and bent over and pain started to come about. Patient stated she had difficulty getting out of the shower. Patient has bilateral low back pain. Patient was seen at [facility] on Saturday and was diagnosed with sciatica. Patient is to see her PCP next Saturday. Patient was prescribed Flexeril and Naproxen. [Electronically Signed on: 11/15/2022 16:49 EDT] Zara July DANIELLE [Verified on: 11/15/2022 16:49 EDT] Zara July DANIELLE [facility] Coding Summaryon 08-28-2022 Coding Summary HTMLBase 64 BuuiqjwpYGc3dJs+PGhl YWQ+XN1ALBVxM00abLQo zP5cS4ISPIqPSqxePHGL FXjWPxRjjlFvDK7vnJMf ZXJu IC8+LL8pIXAoLqqsqTPl y3I9lDN8W27xdl2bPOws lVC8SQDgXxLqlozop7py dTw2RBerEgadUxVq GYPdrK67IWZ9gM87Gv67 rJHkfPQnm0qcwDp2FjUy VMOdNZM6rNbjYGkue8Cq BBCtV16tjWIkx2S8 IGNvbGxhcHNlOyBlbXB0 qG3tYIvoaqzij8tjqmwj Aaa4na50rSYmp6V3iUR8 S8FhjeC3GOQbzKLp FcgyjOPNzP5pythsa7vv yujtQyMiAQFmEWz8JFl6 BLCbnKynToKvLJ72KDN7 WIXzkdCzL4YaYZEm yQnrYdE5v3T9Tf0OC4TW OweeS8JPICYCHIwjdLD+ ZL81vu13B0QtRprdQvy3 MKKoNQR2uBX1sK5y YCLsPKiek8Y6eUY6T5Xj moKqht0sd4kmJZTyNTab W18kvWJoz4U4ANWuaXC2 JFIpkCnrGuDlxW09 Oyc+RTXwpWwgt3DmLawo p9rqv4omyKy1HnhePCBh jlOnpBpaLKN0b8NhJp0p THQosAY6pXG1cY8u WnCpZrZ7VBbjE250StDl rGPyZwkdE48rN3AkyLD+ EMCsGhd0LEZaxSysEK8i J0OoWGQuoqbreGBa oQglWW5lKZYsormqKBFm vQ4aBEVnR3q5NfSsNoD2 PPxlC8OwHXCyzkoeFr09 yU4vVkMoYbV1PFwv H5IvkpL1UTCbqWEcNLbl ZYN7P54rg4A2TKZsCAXr ILN0tWH9xI2enUucmtfj bGVmdDsgdmVydGlj TDehVDanF539PUFzdWyf PkNvZGluZyBEYXRlOiAg MDUvMjMvMjAyMzwvdGQ+ LEMsQTB6rZucONCc yHAmNVqjKn7hwQujdImc AH7yDBInameuGQPucR4a ZBIztCPdtMtjPV7iSUVk hvyvj972FzEbJXY9 WNWuzGUiA0CfdN4rHiRp LXHeGZXxS6QvoZDrXNjy N677EIhnWoI2JKGxsjTn Z3VrHVCyeXiiYuQ5 s1I6Ju3Ff2UtgxbpX1Ga wFPjXbOlKmkkTIw2S4Cr PjwvdHI+BA81YXWqCE16 EZg9BSV7gZcwVUou TFKqM2WsbI1hKgRcCPXx ZGRkOyc+PHRhYmxlIHdp ZHRoPScxMDAlJyBzdHls GM7aAv0pHOWcIXJg bOqhnASqZqGiy3rtVXSg ZVygCR0izVasZ1PlgMH5 HHGsb2q4Jp96T96kB2Am dXA+OQDwhDV2xGS1 lA5sRgUyJyX4NZrwM246 ZsSwvFGyAinqq7ybq7ri bHt3CbY1RIIqzoRhlCvj HDL3y3AhDa77E11r IHdpZHRoPSIxNSUiIHZh sPnoai6pgL0gBp2+PGNv pFT8lAG5rT9sJhOaCbM9 WZhtF739UdGopVDp Sakbg3cwx7udaXy2FmAy WJErxbWkrHkaTTM4b7Rf Zj67P4RcuRaff6GgSee7 dc97mWZaf5L1uQJ8 O0JsFAHtdqnfuOOymEwn GM9gUDYmegksGTPunK0k AEMkI8i4OuDoLwN9OEwu Z5BjctO7YYKjmFTa KEUnfHOYfG9gaqzpy0gl kukjBtInMDNwBJx2YMw6 IHJaiXbhAkLuUSM2LrV3 RET0dXRknF9obGft ckvuaT0tUqb+NTL6tODh rIWOZR2hUrgqtOT+PHRk HOA3fQmvIHxoCPHfjM0k GXOgT6l9KmMgOvN7 IAokZ1BvjxK5GFQlgRHe FTYrbSIBfD7htnzut4gv lfokBzJlOQBwSBd1GRb5 LWFsaWduOiBsZWZ0 IfZ2ZHC5aUVkfN2paLel gyekjQ0uPhu+QmlydGgg HNI8DDv9P5AwVmy3KMEf pKoaCC0pbIDkBJhr Dl3yhZsijPitBU0vNSOq ckboa898YkSps2pnCIKd wMJdABprOJR8P79vb0B9 EHZkRIKrDXX5eIB9 lK7viMtssbfthAYubVgd pxDbyKgpTLluCVasH830 JGJznAmeSaVfCZz7S2Sr Zss5FTHdeJuuEZ6p kZXhCEdiEj7qfKqjcMqf MG1hMVGejljtv149IyFu s5rlHNDoxCPeNGxqIFU4 W06nn3J0DPXfBYRa RBV7fVF1nI5evLyvmysg bGVmdDsgdmVydGljYWwt EApbG768CTHhyNmwEuQp lMk6F6EsKjg9PLBl vNrrOJ0xpEQkAFkzLq4x dOkdrKquDO4pCWGmokap s972IbLix3ndOOFhhQJn QJlcOSE6P63bb3T8 QAQaQSAnSFC6rLG9bO5o bGlnbjogbGVmdDsgdmVy lMteEPmjZZtiA910ZLUg cDsnPlBhdGllbnQg PTfgULz4R9TbEwmhiVB+ UK96EJLqDF77iBZgwUWj y6emjFt0WcAxCXWbEFR0 hXytEGmxi8OmWUEh N89ibZTvv2Y7YDKlbNcy sCZgEkBnpSN4sA6xZNtl anmxl1gkgspeXozxv2nm oe81qC68N71bMEot ZHRoPSIzMCUiIHZhbGln el2ooL5fCh8+PGNvbCB3 cZL5aF3lORKlSvX1FBmx T450BoJlcPRkSydh g6pme7mrlJj0IfZ1EZAu uzBueJylIIK2r8QmKn76 M85wFJnhIQYoBAZnZSHw BZGsiJlhfu6nmD8s Ii8+MCFtpUI1lUA7hM5p DeAkFaF4BMjvI576LnRm pDVsAqvnZ17iR7MwlYC+ JLKsIvd6MELjzAdh FR2voFVcTBfbSl3uREQ7 FjZgKjCuHUscU5PgPMPw mgqlmuqnkKI8FMWiOCUy nV07Tv3plTguHBOb gSPPyD2xptqft0zbpjgu NyZoWATdYPl3MDn0NLJq uQtlZpSsMXP5SzH2OGA6 wQZelK6xdEuurcnd yV9sA8RpKWPmwcraZj58 tP1zTyIfDkX4KYenEho+ H0rWYtPKDQivQ3lOGSIS TXfZME7QMGmhxJB+ WBNpZEM9iGxkSXbmAHRx rF7aDPMgM5q2VjAySbA4 OVwpB6MrUQOwndnmGn40 dI7jXnSwSwI5SQkt D6YvjrT8CJAbtGMdGDda MHQ7C89lr9U8LXQmZBBm DZG3fSE8iG4yeNejzmgd bGVmdDsgdmVydGlj MRomCOuyC562UEMuaXyh CqW7XhHtJvHuMID0T8Bz Hny2JDDsrTmwQZ2wnBKk LZavVs4qrCgroXgk XE5iKFVudqntUYOthY1w VVSntQAseNvyKH8sWFPx whrux486JeGrPKT0XXJv zUHaS3WacM4mOqCj CIXeQNPpW4IutOQdJPhx K768RKqzEfC6YMVlejPi V4GcFDMjlAaoBoW2z0A1 Mf2pSSGIBBIsvosi dGQ+ABGyCTC1cIfySLyh ZGBrvJ4gIIUcI2x3JmRp EiT1KGvaW8EgPWQuimfb Td86wD2sBgBhPeI5 GNgyC4DvgaM3MOEboLLc JDaxTBP9M58sm9X9QGMc TTAuGCJ3xTT0kL4usFcs bjogbGVmdDsgdmVy eGqyPFpvSHeeU809OUGp cDsnPkZFTUFMRTwvdGQ+ IXShYUE8yNewYRrhABMs oX7nWHKmU4h0QyPq PeC6XDnkA7FpVZAsqdrp Hc48xT9pDiGvBuQ3FOyr O3TvnrH4YUPbuGBsECwt ZLN9L23qb9V5TTRe ASLlCXS4kQD1wB6elLcv bjogbGVmdDsgdmVydGlj RCvzKNofR585KLFgpVnu Le8GUO54QE91Z6Mq PjwvdGFibGU+PHRhYmxl IHdpZHRoPScxMDAlJyBz aHpeCA2iUi4hDEYxPSXk cJkdqLAoEaLtj9pe GNHqYEpuJN6qzUdxL9Ry rCV8DRMms6z1Ei77H20z A7YxwUG+MBJztAM1zQC6 iU5hRxSyZhV9WErp L082MzCuwHImDknkd0js f4ubrKv6TeCdRTTcthOr kLbzXXF1h5DkTw34L81v IHdpZHRoPSIyMCUi GKVbeZkvcz1xkP4dEy1+ PUMydCN6bZB5pS1cEjYl PfO1YEsvU539TrUehXNl PrkqK27kC0UuoPI+ JQDpXrm1COCwuYvjUW3z kTYjKLwcYd3cNPM6AlCf RpFyGWclB6SaPIVllrnm bcjibVU1YPGzIRJq uI47Pn1neXbjNy0zKCBx OSI8DNRdlQAbO7XqiR5v ZqLgMNXmGEBiC6SilXXv HOmcM176URiwOxD8 ICHuidUjG4QxOVOloHqj IxK1f7S8Pg5LzZcxuRNw ST3rZpNdYOj8S4EgVkj5 GSSjmWjrCD6upXDj KYibLs1ncFfglGnsFX9f LWEnowvjz545KjTuw0hh MBDpgUZzYQsuAJU4E42t f6Z1YWKmKCCvTLJ4 hOU8fN3ubEhxwvtsbUIz dDsgdmVydGljYWwtYWxp D154SBNbuCnkAsVKCsj9 Y3VhSnm7FYPmhKoo OJ9isQMiTOroJd3gqPyr fSvqHE1sJKSqiobax208 BwTtk4qlLFFtgEFzGXlz YDA8U32jm1F3UPZh LPVaSBW6tRG7jL5arBcp bjogbGVmdDsgdmVydGlj OYhdHYcsI478LTIfyZqy Au1XLhf8V4YzKgt8 VZWunEdeWV1sxWMdUOzw Uf1epOxynKitGT8gMDJb wvzsj916FlRqf0xeEJRs hCWuBFdcCEO9K41d t8A7OOHiKXOfSOY5sTZ9 eA8diEnznsoovYArzFlc ykSnuHbfSHzwWZiuW836 IHRvcDsnPlBheWVy OjwvdGQ+UJ17po37H8Ar EqrnEbt4ZCSyOXH2vXC4 bQ7dOYPqUBjun5G5cXN2 C8BgwaOdue5yx7mk YXB (more content not included)... Normal [facility] Physical Therapy Noteon 08-07 Physical Therapy Note [id number] #[id number] [facility] hCG Quantitativeon hCG Quantitative 3.0 mIU/mL High 0.0-0.6 [facility] Comment on above: Result Comment: Post -Menopausal Reference Range is: 0.1-11.6 mIU/mL Performed By: #### 7 [id number] ####[facility] ([facility])[address] [place] [address] Coding Summaryon 08-16-2022 Coding Summary HTMLBase 64 EuzksfosMDg2rZj+PGhl YWQ+CP4QBQTvF46ovJFi lK5AW1bXIU6OSIVQMMNM BY6WPK1ewSV9REraL1Pr biAv CgudeJPqKB82NRb0EVR2 oYbbRTefvU0osEYsH1s0 YvLdET55zF31DRlaCZYg RwA5XbNicsgzrVJe K6rqHoReuTFyJan+PHRh YmxlIHdpZHRoPScxMDAl HpJzyAvvLF9lAa5iUYJi LWNvbGxhcHNlOiBj l3ohJWLbDLzcYP8fnLir D1KewDU8QYVyr3j7Ah41 dHI+ZYRvMVU5wZvjPNrh b167InStb5jkQLS6 xJJnQAibXCC7X04mc0K8 FUJtUELoMOA7rFH8nR4x hKejgqvtY4QflUCvIeL7 LVI0nKYnfG2jkQlx ktitzW7vEfp+D70OOX2N MZNFYV6DQiz6X6QiRffa dHI+SC20OJWsGH94oOQu wHCoo9utgWj4KcPo UYPcSIS4wOuiBAvzi5Fq MFSjG93goUQbl3W2CVTu sQehrTIvXaDmqJB8mF4w MDhjoiran4vvjvnu Wjohx6fizm06iQ45S53s LEgcYJCzUPB0XBGoAEBw fMlthy0awL3aLe4+IDxj n0kmp9jhxJi7WnDz ALQhkaMxjZmjBHJ6p4Fk Kc84G7FsvPytu8OhVns9 jb62cCDbt5Y1yCB6GEtv BICusD1fWLjpJfR8 LTXySiFjjP53yYJhSTzm Nt2opXckgSrsLN2mHOWu rhhhORNbiG1rCSKsyAOo vChmGK5bQZOaqdnj b099DdHnEIB7FYIrjFBs G2DjiO4bZeEgKKMaNAMr P9ChtODwSNuxL608CUus LwC8NVGhqwYvD3Oq FEYoyUhmXuC2o4R6Cd6Q b4EzslbnYGP1IQvdISS6 BdXtEkDhWoH8K9MwFfv1 DDRnxRewDW9oN1Qn XKRpmkigwfjfrHN8COIj YONcpT92iTEnVWcmZe8g f9D0v819MEYrVGWtnS48 Ei1szQphGLXlfNUO zD1ivknif7qjdmieMnUe GQIsQRm0WWe3LVZebFbx GbWmJOF0QxO1MSQ3fMSb bX1doQpbgytgxD3l Oyc+W43atT9aRET1ETO1 jgltBQQqpeFwPB20XV48 Z0IbVxpubLPnlVX+PGRp meKrgCkgUD0zEdXe b2rud6AzGRfhR0XuLCUu EBnbNbk0FVQvSVG6gOT9 zY7kSHVzJIuzz9X5wYB7 C8ZtbkWxap1sj2es XHQwWAmxY84tbPIkf1L4 KTBloLQ4UUPtsCtuYvBd mV30Zmx+HUTtkPyen8Ad Rgrzl6srw9aipFl4 IjMwJSIgdmFsaWduPSJ0 h2KhOe52E90jKIlzOYZs EZMlXIZsBSOirRlxtk4m dT7iNl4+PGNvbCB3 bOM7vF2eNFRbIhY4IVvc P085KoMroSMaPjylk6lz r7gdhSo2EhFaVBMbinJp xGerWYC9c7GyHz07 I14mOEyhPOSoQVSaMJIm LPWjwOvwqy5wmX6lDn1+ GC2xe0dqps99hL60qBH+ GKIvFFZ8eWxaBSge TWPhmQ5uGCziLlW6LPQk VuVofA21qUOhUVvrAq6s bFyinVgeBM3pAUCsckkf d315GtVht9aeNETu gSGiYWerJEV7W30mf1T8 SCNbJPWiEBS8lZZ9dY6j bGlnbjogbGVmdDsgdmVy iVmgGBajLOxmW463 IHRvcDsnPlBhdGllbnQg IfNkDRo9K6DxZzg7ATIg hLibIA0yiRPlNWpdNy6y qUumsApkJJ9nTKMr mtdem947JvSzx7sgCJXo dYVkPGijAON8O49gk0R1 VPQiKWKcZJB0rPG0vG7e bGlnbjogbGVmdDsg iwCtaQkrJPasWTdbF706 IHRvcDsnPkJpcnRoIERh rPS8OA54UD77zNWoi7X1 uOF6I1GsABSnhkdx qzctjSK7HAVcCZLrtO38 Ce8gkSwxNw1nZQJvADR1 VBNdeSHsE1VmiD5mGdRb WBKsPKUxQ1WktSUx QJedI852TIgvIuN2AMWn gjJeS1RpEBCzeHzmJcU5 g7T3Yc1ZZ3M1WI11NB86 wZRiv4O7xDE3N3Pj RQUqgnlrypycvGW8VFLt HVJlzM30Ky6ekLriGb3a GEJjSNA8MTAawCHoJ6Bo dQ9lTcCrMJUsGXPp Y4GidNWnPUspD833FAyj NnS0ZPXnroAnY4NwUOFa tCfzLbF2e4I1Fi7EUJx9 LM46UM67dIPlm3A9 sLR6W2QjMBDnvczwyfeb oLD6YNXhUOGkfQ74Bg5d cXqzLv1vMSLkBFZ7OSNx lWTrN5ZoeA6mZzHa QATiPXHwD0VpoQDdIUdn M112WHuaUjT0OKUjarHw S3EtGQGfcJnjUrW9c5H1 Qq2QWLHjXJ20DDH4 wLZ8TP43YL07A4XtZoht dGFibGU+PHRhYmxlIHdp ZHRoPScxMDAlJyBzdHls OW3tCh4fRHYjCUIx mKpygTPiLlXws1maDBFi AWycOO5zkIttH3WfoVV0 NSDkp3f4Hj42F34kG8Wi dXA+YHLziMK8mLA8 fD5kVbEsGvN6LStuC087 YoJlaIXwPexbh0rme2qx tUt3XdG2GSRmqwWmzXsc EPD5j2QrGt75J55a IHdpZHRoPSIxNSUiIHZh sMcnrx4seR8mCc4+PGNv jIZ8nOF0mN6yBxMaSzA4 LPsvP839WoTjkJNo Uunbc4uyk5segHg1HjKt TFKcmuYwmIqzNHU8a8Po Eo24S6RzyHytm8AeKfz0 gs52cAEax8E1nVI7 A2NeRLYlvchqmTMqsNeo HT5jBSEhtnjhZYZsaG1a UWNaP7t0OfSbPmA7NVar E4TxgoA8XZEpdRFj WPvkKTA0V93wu6V2ALTf OOVgXLP8vRM8aC2ntGyl bjogbGVmdDsgdmVydGlj NDzdXJgiD246DOLu kDltWAOwzA3nUGQlyENv pVbjVQ8fUVNwtewrCewS TEJFUlQsIFNIRUxCWSBM MXAMJnW0D9HnOuw6 XBZtnWemCH5smZSvTPft Fu6ikCxmtDtcKO7xIBJc jyhkIEDvoW9dPFOebDZz dEssIO3yOHIwgjmd o531RmBpXQJ0KDZtuNCh J6ZxgK3lBsXnGOPkLYCh D6DzaTKeEFkoL926NGal RlX1AZZavkSbO5Vn WVIkkWfzGeI3z6M6Tx8e Yv5qId6tHLFtJR21EH23 eBUad3E6rZW9L5AnNVOu bmkdkghxyGI9QJAk QXIkfR46tATzCAujCi5z d5F0z193OBNtMDNryH69 Gn6fbPmaBGHzqIPLsV7e upfmf2vzmwfzXlFu XNFiQHw5NPv8MXAnsSmb IeZwXNU8FuJ7GLS0zRHw dI9ftCbnvoyboM2kDma+ VlDyQFRpvaD0E9Yh Vxq0YLGnuNcxTP3fpCGw PCqxKy6zfFjjnPvrRB3d RARhfedvMSRcpF2aQLMm hVBqwJoiSV0fIFQc mmakg992ZtAtGTR8YABk hLBwA8IdjH1pRuFsZHPb IJMxD0TwwNMwLIcnB675 BBkvWlP9GJYgvnCs Q4QpZZEdpWyvMkO3f8S4 Rr6HZH3ZQPH4Z7BsPoq3 TPWqnClpAR0gtUEjRXaw Hp7ptJvftDjqBB0i VKDiorzjNOWxiK2xPLIq iIRihZeqXM6sMVIfsynk e653RuZdNJW8VFSxfMTj C3QekN9wDdUnIYFe SBYfE8OeeCQdNHleW622 AXfeRoI9YRSurjRhH4Pv USCtrAdfGxX4v4S0Rm3P hFTjW6AsB9i9B9Jk PjwvdHI+YB01MPFmCU48 eOBjzELvn9yxuIw4KuXp MYTrUJN0eQzsQXlhh3Gy PNMoV80yfLNhq0P2 IGNvbGxhcHNlOyBlbXB0 bN0uVMrooxlnf6srortj Jmvfl4qdhi25qU85I84t IHdpZHRoPSIzMCUi GFVhmKrqba8lpP6iJk2+ PLMblHQ5aPA3pK9sAzHn UcF7VOkaQ448KbStvPFe Tkjmz4bhq3hkkTl2 IjIwJSIgdmFsaWduPSJ0 n2PqIh65Z37vWCieZZPv POPzLXPrVPPpfAuyce8b pU9iBd1+IO2xw4tj rl22pP46iIR+PHRkIHN0 dNmhWFwySEZetI2yBHpt HsK6MYZzVkQouO29tTEx AVlhRy2mrPxmaHqx HY2mRMVabxvvy720PiNl r6moRDIdxYNqQYauQZC3 A76qy6Q8VUQgNDXeZUG8 pNH5lU0xnAgzobsr bGVmdDsgdmVydGljYWwt ZFgjI962LSFwfJgkWxDm dAEhC6hxlfMZVP3aXdbf dGQ+TMJdKSN3rBnh BVhrWSPlmG6nVUCoX6g6 JfYwOxC0CWmbZ8MzepT7 LZHajCQaVZIkbEJNcV9r iaefw4tbinlfMuAu MWLkVDq8FCs4YSPduEro BmBlKMC4UnG9CEI9vOFr hQ9wlUhucrkksG8hLgt+ RklOOjwvdGQ+PHRk DSL3tUswDVznZFWfvP3l EVIiP0p2ThEeMhO8DBkg T4GhkxT0URMprPVcGEUs lBSBcP3ieyopl1sn mmnaOtIzUOJbYGq8ROc7 DKXdpMqcEnBtTIP7WoS7 HJF4wADeuD4teXjfvtrp eO9xRew+TVJOOjwv dGQ+HAZfSRJ0fJvzGQow FZTdjN9eZFBbW8t4MnYy HcE9FGcpZ8MounU4RNLf dLSvJHDjxCJYhG8f ygqzm2mzsbhwNxZhEWSy UEv3LYp2YYTrmLhbReEw PZK0EcL6RNL8iVUvuT7p aRxolutjqM4iVwn+ UCF0WCE1WI56OB04G9Zo PjwvdGFibGU+PHRhYmxl IHdpZHRoPScxMDAlJyBz gEdnKH8gOy4zWKEo LWN (more content not included)... Normal [facility] .Auto Diff 108-11-2022 Auto [place] % 7 % Normal 12 [facility] Comment on above: Performed By: #### 1 [id number] ####[facility] (DEFAULT)[address] [place] [address] Baso Abs# 0.1 x10 Normal 0.0-0.2 [facility] Comment on above: Performed By: #### 1 [id number] ####[facility] ([facility])[address] [place] [address] Basophils/100 WBC (Bld) 0.8 % Normal 0.2-2.0 [facility] Comment on above: Performed By: #### 1 [id number] ####[facility] ([facility])[address] [place] [address] Eos Abs# 0.0 x10 Normal 0.0-0.4 [facility] Comment on above: Performed By: #### 1 [id number] ####[facility] ([facility])[address] [place] [address] Eosinophils/100 WBC (Bld) 0.4 % Low 0.9-4.0 [facility] Comment on above: Performed By: #### 1 [id number] ####[facility] (DEFAULT)[address] [place] [address] Lymph Abs# 3.0 x10 High 1.3-2.9 [facility] Comment on above: Performed By: #### 1 [id number], [id number] ####[facility] (DEFAULT)[address] [place] [address] 41739 Lymphocytes/100 WBC (Bld) 25 % Normal 14-48 [facility] Comment on above: Performed By: #### 1 [id number], [id number] ####[facility] (DEFAULT)[address] [place] [address] [place] Abs# 0.9 x10 High 0.0-0.8 [facility] Comment on above: Performed By: #### 1 [id number], [id number], [id number], [id number] ####[facility] (DEFAULT)[address] [place] [address] 22519 Neut Abs# 8.1 x10 Normal 1.5-9.2 [facility] Comment on above: Performed By: #### 1 [id number], [id number], [id number], 2530076, [id number] ####[facility] (DEFAULT)[address] [place] [address] 06264 Neutrophils/100 WBC (Bld) 66 % Normal 44-88 [facility] Comment on above: Performed By: #### 1 [id number], [id number], 5215602, 9404191, [id number] ####[facility] (DEFAULT)[address] [place] [address] 91961 BMP Standardon 08-11-2022 eGFR Non AA >60 Invalid Interpretation Code [facility] Comment on above: Performed By: #### 1 [id number], [id number], 0497553, 5823803, 96878395 ####[facility] (DEFAULT)[address] [place] [address] 92534 eGFR AA >60 Invalid Interpretation Code [facility] Comment on above: Performed By: #### 1 [id number], [id number], 1097897, 7600494, 03596741 ####[facility] (DEFAULT)[address] [place] [address] 74595 Anion gap [Moles/Vol] 18.5 mmol/L Normal 5.0-19.0 [facility] Comment on above: Performed By: #### 1 [id number], [id number], 0235338, 4391489, 40893489 ####[facility] (DEFAULT)[address] [place] [address] 98829 Calcium [Mass/Vol] 8.7 mg/dL Low 8.9-10.3 [facility] Comment on above: Performed By: #### 1 [id number], [id number], 7913725, 7219098, 84622385 ####[facility] (DEFAULT)[address] [place] [address] 50531 Chloride [Moles/Vol] 100 mmol/L Low 101-111 [facility] Comment on above: Performed By: #### 1 [id number], [id number], 6030417, 7114242, 10153317 ####[facility] (DEFAULT)[address] [place] [address] 22040 CO2 [Moles/Vol] 24 mmol/L Normal 21-32 [facility] Comment on above: Performed By: #### 1 [id number], [id number], 8563973, 9332410, 52115852 ####[facility] (DEFAULT)[address] [place] [address] 28636 Creatinine [Mass/Vol] 0.57 mg/dL Low 0.60-1.30 [facility] Comment on above: Performed By: #### 1 [id number], [id number], 5238405, 4234983, 58112790 ####[facility] (DEFAULT)[address] [place] [address] 91196 Glucose [Mass/Vol] 98.0 mg/dL Normal 74.0-118.0 [facility] Comment on above: Performed By: #### 1 [id number], [id number], 0817688, 3202573, 61343940 ####[facility] (DEFAULT)[address] [place] [address] 13708 Osmolality 274 mOsm/L Invalid Interpretation Code [facility] Comment on above: Performed By: #### 1 [id number], [id number], 2609887, 9374925, 42617150 ####[facility] (DEFAULT)[address] [place] [address] 60731 Potassium [Moles/Vol] 4.5 mmol/L Normal 3.6-5.1 [facility] Comment on above: Performed By: #### 1 [id number], 5500620211, 5506635, 6926723, 13398390 ####[facility] (DEFAULT)[address] [place] [address] 70851 Sodium [Moles/Vol] 138.0 mmol/L Normal 136.0-144.0 [facility] Comment on above: Performed By: #### 1 [id number], 5657157559, 1920535, 6122821, 81188322 ####[facility] (DEFAULT)[address] [place] [address] 14857 Urea nitrogen [Mass/Vol] 9 mg/dL Normal 8-26 [facility] Comment on above: Performed By: #### 1 [id number], 1052363487, 3580564, 6789421, 13284890 ####[facility] (DEFAULT)[address] [place] [address] Urea nitrogen/Creatinine [Mass ratio] 15.7 mg/mg Normal 4.6-16.2 [facility] Comment on above: Performed By: #### 1 [id number], [id number], 3321523, 8029857, 06809076 ####[facility] (DEFAULT)[address] [place] [address] 99254 CBC w/ Auto Diffon 3 Erythrocyte distribution width (RBC) [Ratio] 14.1 % Normal 11.5-15.0 [facility] Comment on above: Performed By: #### 1 [id number], [id number], 4748405, 3763235, 73962709 ####[facility] (DEFAULT)[address] [place] [address] Hematocrit (Bld) [Volume fraction] 36.8 % Normal 33.7-40.4 [facility] Comment on above: Performed By: #### 1 [id number], 8117950568, 7358922, 3122196, 52745679 ####[facility] (DEFAULT)[address] [place] [address] Hemoglobin (Bld) [Mass/Vol] 12.1 g/dL Normal 11.3-15.9 [facility] Comment on above: Performed By: #### 1 [id number], 7912136309, 1728492, 8674981, 57156736 ####[facility] (DEFAULT)[address] [place] [address] Man Diff? Auto Invalid Interpretation Code [facility] Comment on above: Performed By: #### 1 [id number], [id number], 1165973, 6619232, 15446856 ####[facility] (DEFAULT)[address] [place] [address] 16872 MCH (RBC) [Entitic mass] 28 pg Normal 24-34 [facility] Comment on above: Performed By: #### 1 [id number], [id number], 0302294, 9880385, 61697898 ####[facility] (DEFAULT)[address] [place] [address] 68145 MCHC (RBC) [Mass/Vol] 33 g/dL Normal 26-37 [facility] Comment on above: Performed By: #### 1 [id number], 6153324738, 5532304, 6662702, 30055681 ####[facility] (DEFAULT)[address] [place] [address] MCV (RBC) [Entitic vol] 85 fL Normal 81-100 [facility] Comment on above: Performed By: #### 1 [id number], 7794416864, 3326469, 9109937, 02427880 ####[facility] (DEFAULT)[address] [place] [address] 79121 Platelet 367 x10 Normal 138-427 [facility] Comment on above: Performed By: #### 1 [id number], 4406349157, 9494638, 2795705, 57148641 ####[facility] (DEFAULT)[address] [place] [address] 83416 Platelet mean volume (Bld) [Entitic vol] 8.1 fL Normal 6.3-10.2 [facility] Comment on above: Performed By: #### 1 [id number], 1466917886, 7932093, 4098843, 41371688 ####[facility] (DEFAULT)[address] [place] [address] 75850 RBC 4.33 x10 Normal 3.70-5.30 [facility] Comment on above: Performed By: #### 1 [id number], 0899980294, 3392597, 5889583, 45867142 ####[facility] (DEFAULT)[address] [place] [address] 62167 WBC 12.2 x10 High 3.5-10.5 [facility] Comment on above: Performed By: #### 1 [id number], 7694145184, 8513301, 6942222, 66264712 ####[facility] (DEFAULT)[address] [place] [address] 52943 ED Clinical Summaryon 2022 ED Clinical Summary [facility] - Emergency Department [address] [place] [address] 58579 ED Clinical Summary PERSON INFORMATION Name: LIA DESAI Age: 21 Years Sex: FEMALE : 2000 MRN: Acct#: Visit Reason: Vaginal bleeding - < 20 wks ; 7 WEEKS, VAGINAL BLEEDING Arrival: 08/11/2022 12:41:34 Discharge: 08/11/2022 16:30:00 LOS: 000 03:49 Check In: 08/11/2022 12:41:34 Checkout:08/11/2022 16:30:00 Address: [facility] [address] [place] [id number] PCP: Provider, None PROVIDER INFORMATION Provider Role Assigned Unassigned Adamaris Jaeger PA-C ED PA 08/11/2022 12:44:39 Arabella Romano PET ADOPTION COUNSELOR Nurse 08/11/2022 12:45:45 VITALS INFORMATION Vital Sign [...] Resolved Disease caused by 2019 novel coronavirus ([id number]): Onset on 11/23/2020 at 20 years. Resolved. Comments: 11/23/2020 CDT 16:07 CDT - SYSTEM Problem added by Rule (IC_COVID19_AUTO_PRO BLEM) following 2019 Novel Coronavirus (CoVID-19), IMLY L from Nasopharyngeal Swab collected on 22-NOV-2020 16:44:00 EDT tested positive for COVID-19. no history (611800455): Resolved. Contact dermatitis (79062220): Resolved.. Surgical history: Tonsillectomy (626637795).. Family history: No family history items have [...] quant draw (more content not included)... Normal [facility] ED Note - Provideron 023 ED [...] Resolved Disease caused by 2019 novel coronavirus ([id number]): Onset on 11/23/2020 at 20 years. Resolved. Comments: 11/23/2020 CDT 16:07 CDT - SYSTEM Problem added by Rule (IC_COVID19_AUTO_PRO BLEM) following 2019 Novel Coronavirus (CoVID-19), MILY L from Nasopharyngeal Swab collected on 22-NOV-2020 16:44:00 EDT tested positive for COVID-19. no history (135736173): Resolved. Contact dermatitis (37476122): Resolved.. Surgical history: Tonsillectomy (467015043).. Family history: No family history items have [...] % Auto Lymph % 25 % Auto [place] % 7 % Auto Eos % 0.4 % LOW Auto Baso (more content not included)... Normal [facility] ED Note-Nursingon 08-11-2022 ED Note-Nursing Patient walked into the ED with c/o abdominal cramping and bleeding. Patient is 7 weeks . Symptoms started today and cramping is getting worse. Denies taking any medicine for pain. Did have right lower back pain a few days ago. Was 15 weeks in may, had a miscarriage and had to do a D and C. Normal [facility] ED Patient Summaryon 023 ED Patient Summary [facility] - Emergency Department [address] [place] [address] PATIENT DISCHARGE INSTRUCTIONS Patient Information Name: LIA DESAI Age: 21 Years Date of : 2000 Reason For Visit: Vaginal bleeding - < 20 wks ; 7 WEEKS, VAGINAL BLEEDING Arrival Time: 08/11/2022 12:41:34 Primary Care Physician: Provider, None Attending Physician: Andres Duval Comment: Visit Diagnosis: Diagnoses This Visit Miscarriage (O03.9) Vaginal bleeding - < 20 wks ([id number]) The Pharmacy at [facility] is open Saturday through Saturday from 9A [...] alcohol and/or drug addiction problems; contact the [facility] 29/10 Crisis Hotline -Text 8NKXY in [phone]. If you received any narcotics, sedation, or [...] sign any legal documents With: Address: When: production sorter Within 1 to 2 days Comments: repeat hCG quant in 48 hours and can come here or follow-up with PRESS OPERATOR ASSISTANT Call for follow up appointment With: Address: When: Return to Emergency Department Within As needed Comments: Return if symptoms worsen Medication Information: The exam and treatment you received today in the [facility] Emergency Department were for an urgent problem and are not intended as complete care. It is important for you to follow up with a doctor, nurse practitioner, or physician?s assistant teacher primary for ongoing care. If your symptoms become [...] so we can reach you if necessary. [facility] Emergency Department has provided you with a complete list of medications post discharge. Please inform your primary school teacher librarian/provider of your visit and for further instruction [...] may ma (more content not included)... Normal [facility] Extra Redon 08-11-2022 Tube Collected Yes Invalid Interpretation Code [facility] Comment on above: Performed By: #### 1 [id number], [id number], 8646512, 6252332, 69013759 ####[facility] (DEFAULT)[address] [place] [address] UA [id number] 08-11-2022 UA Amorph. Rare [facility] Comment on above: Order Comment: Urina lysis Microscopic order added on by [employer] Expert Rules system. Performed By: #### 1 [id number], [id number] ####[facility] (DEFAULT)[address] [place] [address] UA Bacteria Trace [facility] Comment on above: Order Comment: Urina lysis Microscopic order added on by [employer] Expert Rules system. Performed By: #### 1 [id number], [id number] ####[facility] (DEFAULT)[address] [place] [address] UA Mucous Trace [facility] Comment on above: Order Comment: Urina lysis Microscopic order added on by [employer] Expert Rules system. Performed By: #### 1 [id number], [id number] ####[facility] (DEFAULT)[address] [place] [address] UA RBC 0-2 [facility] Comment on above: Order Comment: Urina lysis Microscopic order added on by [employer] Expert Rules system. Performed By: #### 1 [id number], [id number] ####[facility] (DEFAULT)[address] [place] [address] UA WBC 0-2 [facility] Comment on above: Order Comment: Urina lysis Microscopic order added on by [employer] Expert Rules system. Performed By: #### 1 [id number], [id number] ####[facility] (DEFAULT)[address] [place] [address] UA w Culture if Ind Standard on 08-11-2022 Breakpoint UA [facility] Comment on above: Performed By: #### 1 [id number], [id number] ####[facility] (DEFAULT)[address] [place] [address] Color (U) Yellow [facility] Comment on above: Performed By: #### 1 [id number], [id number] ####[facility] (DEFAULT)[address] [place] [address] Culture? Not Indicated Invalid Interpretation Code [facility] Comment on above: Result Comment: Resu lt created by rule GL_MAGR_ADD_UA_CULT Result created by rule GL_MAGR_ADD_UA_CULT Result created by rule GL_MAGR_ADD_UA_CULT1 Performed By: #### 1 [id number], [id number] ####[facility] (DEFAULT)[address] [place] [address] 53514 Glucose (U) [Mass/Vol] Negative Normal [facility] Comment on above: Performed By: #### 1 [id number], [id number] ####[facility] (DEFAULT)[address] [place] [address] 99789 Ketones Ql (U) Negative Normal [facility] Comment on above: Performed By: #### 1 [id number], [id number] ####[facility] (DEFAULT)[address] [place] [address] 80631 Micro? Indicated Invalid Interpretation Code [facility] Comment on above: Result Comment: Resu lt created by rule GL_MAGR_ADD_UA_MICRO Performed By: #### 1 [id number], [id number] ####[facility] (DEFAULT)[address] [place] [address] 40910 UA Bilirubin Negative Normal [facility] Comment on above: Performed By: #### 1 [id number], [id number] ####[facility] (DEFAULT)[address] [place] [address] 66196 UA Blood MODERATE Abnormal NEGATIVE [facility] Comment on above: Performed By: #### 1 [id number], [id number] ####[facility] (DEFAULT)[address] [place] [address] 09066 UA Clarity CLEAR Normal CLEAR [facility] Comment on above: Performed By: #### 1 [id number], [id number] ####[facility] (DEFAULT)[address] [place] [address] 29260 UA Leuk Est Negative Normal NEGATIVE [facility] Comment on above: Performed By: #### 1 [id number], [id number] ####[facility] (DEFAULT)[address] [place] [address] 71816 UA Nitrite Negative Normal NEGATIVE [facility] Comment on above: Performed By: #### 1 [id number], 51670849 ####[facility] (DEFAULT)[address] [place] [address] 30433 UA pH 7.0 Normal 5-8 [facility] Comment on above: Performed By: #### 1 [id number], [id number] ####[facility] (DEFAULT)[address] [place] [address] 33544 UA Protein Negative Normal NEGATIVE [facility] Comment on above: Performed By: #### 1 [id number], [id number] ####[facility] (DEFAULT)[address] [place] [address] 52497 UA Spec Grav <=1.005 Normal 1.001-1.035 [facility] Comment on above: Performed By: #### 1 [id number], [id number] ####[facility] (DEFAULT)[address] [place] [address] 96715 UA Urobilinogen 0.2 mg/dL Normal 0.2-1.0 [facility] Comment on above: Performed By: #### 1 [id number], [id number] ####[facility] (DEFAULT)[address] [place] [address] 52722 Urine Source Clean Catch Normal [facility] Comment on above: Performed By: #### 1 [id number], [id number] ####[facility] (DEFAULT)[address] [place] [address] 01681 US 1st Trimesteron 08-11-2022 US 1st Trimester EXAM: US 1st Trimester HISTORY: vaginal bleeding, 7 weeks COMPARISON: 08/08/2022. TECHNIQUE: Ultrasound obstetrical first trimester. FINDINGS: Single intrauterine gestation which has migrated into the lower uterine segment. No cardiac activity is identified. Yolk sac is present. [place]-rump length measurement of 1.1 cm yielding estimated [...] Signature): Jori Churchill 08/11/22 4:11 pm Technologist: [facility] US Transvaginalon 08-11-2022 US Transvaginal EXAM: US 1st Trimester HISTORY: vaginal bleeding, 7 weeks COMPARISON: 08/08/2022. TECHNIQUE: Ultrasound obstetrical first trimester. FINDINGS: Single intrauterine gestation which has migrated into the lower uterine segment. No cardiac activity is identified. Yolk sac is present. [place]-rump length measurement of 1.1 cm yielding estimated [...] Signature): Jori Churchill 08/11/22 4:11 pm Technologist: [facility] hCG Quantitativeon 3 hCG Quantitative 4616.0 mIU/mL High 0.0-0.6 [facility] Comment on above: Result Comment: Post -Menopausal Reference Range is: 0.1-11.6 mIU/mL Performed By: #### 1 [id number], [id number], 3136140, 2728231, 86186240 ####[facility] (DEFAULT)[address] [place] [address] US PREG TVon 08-08-2022 US PREG TV [...] by: CHRISTIAN KATE Date: 2022-08-08 16:56 Normal [facility] Coding Summaryon 06-19-2022 Coding Summary HTMLBase 64 CxczhynmLPs9qMy+PGhl YWQ+TO7YFNIvG33tvDEm vY5TF1eRFT4LNVGNLCNH YR9LOT2buSV6RJlmW0Db biAv UtmxrFGfCI92HOi3RGK6 iPohMIowrA3jnOKkB8a2 ClPrJP57kN00RNdrLGAz KaP4ZhYxevlquSEf G1kgOdAbuUXkVwy+PHRh YmxlIHdpZHRoPScxMDAl ViDjqXehMX3iPz3oBDAq LWNvbGxhcHNlOiBj d1ukIZZzAHuuJX8jdLey T7RpfNM0QRVjr7o0Px66 dHI+AXLtOTR1pDimSOzz q729WsMon4hhUCJ8 eVCkREpdUTR2V67od8J8 QAPvBDXgTNP2ySB0wW2v nGybwdnlJ4BlpYNqWmO1 SQV8eUKbaW1fgKid isdetX0uTrm+D80PXG0C LIYQIZ6EMfz5P6WxIkcj dHI+QO56CPUfMR49wBLn wKSua6pvbGt1ExEf LSLyOHX7vYjzBWvvn7Kk PEOxM16lbAVel3G0ZBAy lIwqpRJnYoMpqLO0vG6k VZussafkl6qzrlmq Uwgoj4qjnh93iP06K30z ZJixKKOiZVY7LDWcHIIp fFeoln5ylS3bHl1+IDxj x5gna6lllZe8OgGn HPZzzhDjvZcqKOD8z7Yu Ww69I2JeuZyxl8HpKyc9 nv23yWIxf9T7bBC1NSth MONdvW9oJUzjHpK4 EBOeIqSbfR52nLFnSAfl Av3mpRirnYkxJM2wSWYb coptKTChuE2pSRTjqKWq aWlbKJ8wSIElvdfb g575BhRuIQW6BJRtcPSe K7VfrV4oKuApRSVdXYUf B4FnpQVaEFkvL301NWly NhO3RURvwmJiJ4Ty ZURdkDihJgB4x2L2Ij2D v4KzzycwLPP1TFgrWQMu FlD3BrHwRzO3N4FeYtd7 NZElfEhuEQ7nL5Sg VNCwzkuozidwcIA1SKZt QWQtaA40uFNoFIkbMo9g l7E4t831IDWtSHQjbN94 Bn5jbNkxOKIzmZHH hZ3pwabpc1eoycyjIbTu BCXjSGj3ZXr3JKTklXwd MqUsUIV0MyR8UZV0uXJt eX4lyOepchebbG8u Oyc+D69hyQ5dVBG3MTN6 cxpgSGDijxHbUZ84ZN60 L3KiTsziqLTizTS+PGRp hzNnhOhbAR7zWgIu p5bwt4ZfQAcrJ1YeWEBs PNvfAsv0IJGnHDE6lRM6 qU9nHQPyOCtyt6L6nIY0 L1UelnOgbp8nu8zl BTHyFGgwG50boTQdz6Y5 OAWasRQ6JIMrmXlzCtGj lC93Xcw+VAYmnYvzg5Jp Ntbnp2soz1ezxGr2 IjMwJSIgdmFsaWduPSJ0 h5HdKx37Q54jGFkzQBHp AMHgDZTyXMTiiZxzwy5z aG1jCr8+PGNvbCB3 rZU9gB0nNNHpCcJ9TGit Q202MlDwbIQpBfdky8vm f4ymcKe8SdIaBKBmznGj oLnoGMV4l1RoAi64 M90lHKenUMBzJPCyVTHu KLFcdEmxpg6paK1qNg5+ AA9hg7hrqd00vZ00dOY+ ZLYjTRA6bNiaDXuc UYMumE7mEXnaEmM0RVKg MnPqlF77fQStZFbkGa7k cYvobUbpEO6uDKYrliml e087ReZnk5rbKKKr tJMrHPnzEXO7Z38ti1U6 WMMeVQXiDXK9gPW8dE2s bGlnbjogbGVmdDsgdmVy hYzcRSwuCWlxH472 IHRvcDsnPlBhdGllbnQg FuBkEOg2I2ErThg6FEPn cFuhGM8hfAStEHnjRi7h gQsjjPvxTX0oXWTb idiuo466WcWdk3arOEYo jNEfZMcpJEX5Z21eu0W9 XMSnGNBeKQJ9zPO1eR1x bGlnbjogbGVmdDsg efAiqIaiCCarYIcjL334 IHRvcDsnPkJpcnRoIERh qKN3CA87BN35iITpn2Z2 mGZ2F5SkYZNxgrwt qzephXC8LPUtCFUqrR80 Kd0cmSncLm8zPFKcNVL6 WPFzrMAhT4WnaO4qSeFa LJTgJNWhB6KioWDv COyaY599ZBwdOkX5EOUf nxHuI3AcRHIjuUnzHtV8 p1A8Yn5JK5K5JM16UG35 xCCwy5Q5dMW9I4Fw GSDftwebeaggpFT6FSMp MUCnnD28Dx8gsLxlFw2l BFUdHUU4HTWpeQMiY9Ep kC0aGtCqHHNoRMWv D9CamPUkQRylR730EThc QkN5MXKwvrOgB1LgZPVw nOtqJrE7v5R5Wu3IPTv2 HD19TN35nBTef5P2 dNE8N8UkYJKqgmvuymar mON4SOPqWCZbaH12Xi8r pNzqBs0kWFVmKLQ5WSEr hWXrG0SqrJ4eGvWw HNTmVMWdX2MveXWoCZkk D065PXxoAqS6LZXeibSc B4PyLCBvvUfwZyV6d8R7 Sr7WHMRhYG16IAS6 wSQ8IR25FB11R3PaApux dGFibGU+PHRhYmxlIHdp ZHRoPScxMDAlJyBzdHls EV4mRy7gJOMpVKOj mNjxnTTjVwVyu9dfZHKo DWmwWR9srSuiJ9SxvJA4 WMUqn3c0Ew27A08zY1Cs dXA+HMKzuTM7kNT4 vE6wPePuZzX6VAcnA332 PbFtiYMtChhvf2dls1tn wKe8AlC6QFOliaVlsSwm WLP0r4WjOh23S86x IHdpZHRoPSIxNSUiIHZh pIdcin2wcF9cIn8+PGNv yML9pSX5hL4uZsOgBpD9 JDybB252JeOxzFGe Vxbsk4ofo1ebvSc8GmRl HKJhxiHirIpkQCL1a3No Bs11A5ZzvGgvd6RaHfd9 au91dIXbn3J9hXA2 P7LmPMAvocppdRRjrEag GR7gWEFkcnrhCMBnoK8o NTKcB3q8DdAjFlH3GLez I5CrmuL3SVYgeITt PEgaDJL9E39mn4D4ROFo PNYlBXZ6tBT1fG9bdWxh bjogbGVmdDsgdmVydGlj QXeqVNeyX578JLOf hWlvKJXxkR0vUFWssPUv sHuzQF9wHTVjkswjCgwI TEJFUlQsIFNIRUxCWSBM ALBXZbJ3H7LiRuj5 TPHhnQdsCV4klJHaDVdv Sg4oqStlrKqdRE2nMUBk pfbjYLMpgX4gGKOqqKDd uWhtHY7vYVSankyn s463OvXlQSB3HEKjdPYg A3MhyN0wGiDpDBDyQUHt P3KhbHHnNZojS748APrd HcO1YQCnxdOaX3Mc WKHcaKzhApY7s7I2Ce3y Ff1uTa3fPKLoSF68TF75 zAZie8R9rSB2O2FrBPRw jwsvexzyxXD6COHj TZFzrJ88fTKlXZzpOt7f v7C5e949NUTzJYLhsU84 Dx8pgMklPLYvdMPAwG5p tnaft6ocveqhVbBu SIQqKBu6RQr3JEAkzIgh CiSoNIU3OnS4BYX0cADm kU8hwBpmqvuxxO4wPyl+ YkQiENBtyuG6L7Wg Ezp0IAPvzEdrTY2wsAGr YPmsAy8jiIrosTwzXX3v SJPmbmgcSIMzxC8gZGFl pGArsJskPX0rQZSs oroie290RxIwWII5IBIa qWAsE9GieR0wMbSmIWVo UKQqZ2XcuOAlBVyaD800 WPjuZgO1VNMsrdPg O6LtIWBkqOtbGhY4d2L6 Rj3SSA0FUES5R2FpYdv6 EUImqZxkTJ6niHHjQEis Vz1goHzevGirQX6d VIAapgldWHEpsH7wONSa nVXdvEslRF5pGGAfkysv u180VbFbPHY0OEIuxYTx V8NhmG2cHrAmCXGe SWLeT5AmoTBvSCfbM372 RZcvRpS5JQNnamEpV8Qv QRAakMsuZaG8x0B2Mq3E UDwvdGQ+XG84ut14 A4QpVzdbNvs0VXSkFBE0 sRY4yX4oZAMbWUybd9L5 zKI4B9NbgrAjav6kd8bd FKZlNOcpZ84nlOUt w3T3XTUddNI4JQIjwIqz TwHfjU12Opq+PGNvbGdy s5HcPjimy4kke4nwhLr9 IjMwJSIgdmFsaWdu BBH3p3GjMw87M82aHTnx ZHRoPSIzMCUiIHZhbGln dk3ayS1fZv6+PGNvbCB3 cEP4yB3iBgMeCbV9 WRtqG606WkJyeRLeGdde v6xsn3ynvHp2GeRbJPYw utYzlNdwLUB1t8BqFl89 U6EnfDdkh9LvVwk5 by84tYDch4L2aLU2W0Ef QQAywegprYQvvBbrUK8l MFTkyyfbTUAzcY8aLEGz R8n5EoWnFxL7OWem C5SlhhU5XHFtpVYhLMCe dOIBlJ0jluvdx4hflakm RvLdKSGlQOt6SNd2MDLy rDtqHnPhEAX4AeN0 ECP9pXRqpZ8noRdxjrcf wM6sWkw+YTa4f4qiaMPn WC7vjIS3LE11BP76aISs x4G9aJO4V1IkWJOx asgqotzziBM9YFQvWNHl iH93Lx5qoInoGe8zVHMb VED1MWEynICsP2WwyT4u HsBvKUWjJRLhA6Ff wXJgEGwuR745FWlbLtH4 TLBunfPrC8NlWCAmoGwx RiG1s4D4Fh5KTT85VZ13 NU71tLRay3O6dRF1 L8FaGFRryywtjfwkbPL3 DCKrIUAfxV78Vn2wdGhe Eh5qLUOaDRQ9QQLfhSJi S0HekU8bFfTiHEPe VCMzG9DeeWKpBLynM927 DBwzChI0USWzalWdB5Nc PMFmyKcqZpZ1e3K2Xu9I Ms81CM26HD47kUYj x5R0dOG4O3YaKUDfcpee kksnuLC2EPTgCBZaoD33 Qj9kcKczLd4kYSVfDAE2 QYKwyDEyK4MpoY3x YhJoPDBeVVEyX6GjxNQr QVnaU656VOgxEgX1SOUd kfFnQ1PyKDQgyRneOeP6 p0L9Wd4RFXoijzv6 H7DuCmkefIV+JY43POEi EU43hUTntSHsi3cydPv8 KsDdKDSyPAW0iJtkWFzs a2GeTPGzF78puJIr c2U (more content not included)... Normal [facility] C Throaton 06-14-2022 C Throat Ordered by Discern. Normal throat jonny isolated No pathogens isolated Normal [facility] Comment on above: Performed By: #### 1 [id number], [id number] #### [facility] (DEFAULT) [address] [place] [id number] ED Clinical Summaryon 2022 ED Clinical Summary [facility] ? Urgent Care [address] [place] [address] [id number] Clinical Summary PERSON INFORMATION Name: LIA DESAI Age: 21 Years Sex: FEMALE : 2000 MRN: Acct#: Visit Reason: UC - Sore Throat; UC - Body Aches; SORE THROAT, COUGH, BODY ACHES Arrival: 06/12/2022 16:17:17 Discharge: 06/12/2022 17:23:00 LOS: 000 01:06 Check In: 06/12/2022 16:17:17 Checkout: 06/12/2022 17:23:00 Address: [address] [place] [id number] PCP: Provider, None PROVIDER INFORMATION Provider Role Assigned Unassigned Birdie James PET [employer] COUNSELOR Nurse 06/12/2022 16:19:28 Nelson Sharma PA-C ED PA 06/12/2022 16:22:15 VITALS INFORMATION Vital Sign Triage Latest Temperature Tympanic Temperature Temporal Artery Pulse Rate O2 Sat 98 % 98 % Respiratory Rate Blood Pressure /76 mmHg /76 mmHg MEDICAL INFORMATION Medications Given: Allergy Information: Adhesive Bandage; Zithromax PHYSICIAN DOCUMENTATION DISCHARGE INFORMATION: Discharge Disposition: Home Discharge Location: Home PATIENT EDUCATION INFORMATION Instructions: Cough, Adult, Dshe-fd-Avxz; Pharyngitis, Wfyt-hx-Nvjj Follow-Up: With: Address: When: None Provider [address] [place] [address] Within 1 week Comments: Please follow-up with your primary care provider, call the office schedule an appointment to be seen in a week or sooner for continued care, you will be notified with your results, please take as Tessalon Perles as prescribed, take buxn-xtx-qqfgvrd ibuprofen and Tylenol as needed for fevers, body aches, or headaches. Drink plenty of water to stay hydrated, and return back to the urgent care center for any worsening symptoms, concerns, or complications. DIAGNOSIS: 1:Pharyngitis; 2:Cough Patient Understands: Yes - Patient/family/careg iver verbalizes understanding of instructions given Comment: Normal [facility] ED Patient Summaryon 023 ED Patient Summary [facility] ? Urgent Care [address] [place] [address] PATIENT DISCHARGE INSTRUCTIONS Patient Information Name: LIA DESAI Age: 21 Years Date of : 2000 Reason For Visit: UC - Sore Throat; UC - Body Aches; SORE THROAT, COUGH, BODY ACHES Arrival Time: 06/12/2022 16:17:17 Primary Care Physician: Provider, Tyson Attending Physician: Nelson Sharma PA-C Comment: Patient Education With: Address: When: None Provider [address] [place] [address] Within 1 week Comments: Please follow-up with your primary care provider, call the office schedule an appointment to be seen in a week or sooner for continued care, you will be notified with your results, please take as Tessalon Perles as prescribed, take sxzs-cxr-nzswrnq ibuprofen and Tylenol as needed for fevers, [...] these instructions at home: Medicines ? Take yepf-csb-ovxpoke and prescription medicines only as told by [...] things can cause a cough. ? Take khro-qly-cghtrpe and prescription medicines only as told by [...] provider. Document Revised: 05/13/2020 Document Reviewed: 04/13/2019 Powered Outcomes Patient Education ? 2021 [employer]friends. Pharyngitis Pharyngitis is a sore throat (pharynx). [...] Symptoms may (more content not included)... Normal [facility] Strep Aon 06-12-2022 Strep procedure control Pass Normal [facility] Comment on above: Performed By: #### 1 [id number] #### [facility] (DEFAULT) [address] [place] [id number] Streptococcus A Negative Normal Negative [facility] Comment on above: Performed By: #### 1 [id number] #### [facility] (DEFAULT) [address] [place] [id number] Urgent Care [facility] 023 Urgent Care Record [facility] ? Urgent Care [address] [place] [address] PATIENT DISCHARGE INSTRUCTIONS Patient Information Name: LIA DESAI Age: 21 Years Date of : 2000 Reason For Visit: UC - Sore Throat; UC - Body Aches; SORE THROAT, COUGH, BODY ACHES Arrival Time: 06/12/2022 16:17:17 Primary Care Physician: Provider, None Attending Physician: Nelson Sharma PA-C Comment: Visit Diagnosis: Diagnoses This Visit Cough (R05.9) Pharyngitis (J02.9) UC - Body Aches ([id number]) UC - Sore Throat ([id number]) If you received any narcotics, sedation, or [...] documents With: Address: When: None Provider [address] [place] [address] Within 1 week Comments: Please follow-up with your primary care provider, call the office schedule an appointment to be seen in a week or sooner for continued care, you will be notified with your results, please take as Tessalon Perles as prescribed, take yxjn-poy-xcjjoqb ibuprofen and Tylenol as needed for fevers, body aches, or headaches. Drink plenty of water to stay hydrated, and return back to the urgent care center for any worsening symptoms, concerns, or complications. Medication Information: The exam and treatment you received today in the [facility] were for an urgent problem and are not intended as complete care. It is important for you to follow up with a doctor, nurse practitioner, or physician?s assistant teacher primary for ongoing care. If your symptoms become [...] so we can reach you if necessary. [facility] Urgent [facility] has provided you with a complete list of medications post discharge. Please inform your primary school teacher librarian/provider of your visit and for further instruction on these medications. Any specific questions regarding your chronic medications and dosages should be discussed with your primary care physician(s) and/or pharmacist. New Medications [id number], [place] [id number], [phone] benzonatate (Tessalon Perles 100 mg oral capsule) [...] these instructions at home: Medicines ? Take yyin-voo-dsjwiyd and prescription medicines only as told by your doctor. (more content not included)... Normal [facility] US PELVIS AND TRANSVAGon US PELVIS [...] ANGELA SCOTT Date: 2022-06-04 06:57 Normal [facility] US PREG TVon 05-16-2022 US PREG TV [...] CHRISTIAN KATE Date: 2022-05-16 18:15 Normal [facility] HEP B SURFACE ANTIGEN SCREEN on 04-20-2022 HBsAg Screen Negative Normal Negative [facility] Comment on above: Performed By: #### H BSANS #### [facility] [address] [place] [address] Dr. Jeronimo Melgar HEPATITIS C VIRUS AB W/ REFL EX QUANTon 04-20-2022 HCV AB <0.1 Normal 0.0-0.9 [facility] Comment on above: Performed By: #### H CVPCRR #### [facility] [address] [address] [address] Jeronimo Melgar Interpretation: Comment Normal [facility] Comment on above: Result Comment: Nega tive Not infected with HCV, unless recent infection is suspected or other evidence exists to indicate HCV infection. Performed By: #### H CVPCRR #### [facility] [address] [address] [address] Jeronimo Melgar HIV 1 AND 2 WITH REFLEXon HIV Screen 4th Generation wRfx Non-Reactive Normal Non Reactive [facility] Comment on above: Result Comment: HIV Negative HIV-1/HIV-2 antibodies and HIV-1 p24 antigen were NOT detected. There is no laboratory evidence of HIV infection. Performed By: #### H IV12 #### [facility] [address] [place] [address] Dr. Jeronimo Melgar RPR QUANTon 04-20-2022 Rapid Plasma Reagin, Quant Non-Reactive Normal NonRea<1:1 [facility] Comment on above: Result Comment: Plea se Note: This test does not meet current guidelines for screening and diagnosis of syphilis. This test is intended for following treatment response in patients being treated for syphilis infection. To screen for syphilis infection, a reflex cascade that includes both RPR and a treponema-specific assay should be utilized, such as Treponema pallidum (Syphilis) Screening [place] (910756) or Rapid Plasma Reagin (RPR) Test With Reflex to Quantitative RPR and Confirmatory Treponema pallidum Antibodies (241665). Performed By: #### R PRQ #### [facility] [address] [place] [address] Dr. Jeronimo Melgar RUBELLA AB IGGon 04-20-2022 Rubella Antibodies, IgG 1.85 index Normal Immune >0.99 [facility] Comment on above: Result Comment: Non- immune <0.90 Equivocal 0.90 - 0.99 Immune >0.99 Performed By: #### B OX #### [facility] [address] [place] [address] Dr. Jeronimo Melgar BOX TEST SENT OUTon 04-19-19 23 SENT TO REF LAB 04/19/2022 Normal [facility] Comment on above: Performed By: #### B OX #### [facility] [address] [place] [address] Dr. Jeronimo Melgar CBC AUTO DIFFon 04-19-2022 BASO # 0.1 103/ul Normal 0.0-0.1 [facility] Comment on above: Performed By: #### B OX #### [facility] [address] [place] [address] Dr. Jeronimo Melgar Basophils/100 WBC (Bld) 0.5 % Normal 0.2-2.0 [facility] Comment on above: Performed By: #### B OX #### [facility] [address] [place] [address] Dr. Jeronimo Melgar EO # 0.1 103/ul Normal 0.0-0.7 [facility] Comment on above: Performed By: #### B OX #### [facility] [address] [place] [address] Dr. Jeronimo Melgar Eosinophils/100 WBC (Bld) 0.7 % Critically low 0.9-7.0 [facility] Comment on above: Performed By: #### B OX #### [facility] [address] [place] [address] Dr. Jeronimo Melgar Erythrocyte distribution width (RBC) [Ratio] 12.8 % Normal 11.0-15.0 [facility] Comment on above: Performed By: #### B OX #### [facility] [address] [place] [address] Dr. Jeronimo Melgar Hematocrit (Bld) [Volume fraction] 43.7 % Normal 36.0-48.0 [facility] Comment on above: Performed By: #### B OX #### [facility] [address] [place] [address] Dr. Jeronimo Melgar Hemoglobin (Bld) [Mass/Vol] 13.1 g/dL Normal 12.0-16.0 [facility] Comment on above: Performed By: #### B OX #### [facility] [address] [place] [address] Dr. Jeronimo Melgar IG # 0.02 10e3/ul Normal 0.00-0.03 [facility] Comment on above: Performed By: #### B OX #### [facility] [address] [place] [address] Dr. Jeronimo Melgar IG % 0.2 % Normal 0.0-0.5 [facility] Comment on above: Performed By: #### B OX #### [facility] [address] [place] [address] Dr. Jeronimo Melgar LYMPH # 2.6 103/ul Normal 1.2-3.8 [facility] Comment on above: Performed By: #### B OX #### [facility] [address] [place] [address] Dr. Jeronimo Melgar Lymphocytes/100 WBC (Bld) 27.3 % Normal 20.5-60.0 [facility] Comment on above: Performed By: #### B OX #### [facility] [address] [place] [address] Dr. Jeronimo Melgar MANUAL DIFF REQ NO Normal [facility] Comment on above: Performed By: #### B OX #### [facility] [address] [place] [address] Dr. Jeronimo Melgar MCH (RBC) [Entitic mass] 27.7 pg Normal 26.7-34.0 [facility] Comment on above: Performed By: #### B OX #### [facility] [address] [place] [address] Dr. Jeronimo Melgar MCHC (RBC) [Mass/Vol] 30.0 g/dL Normal 29.9-35.2 [facility] Comment on above: Performed By: #### B OX #### [facility] [address] [place] [address] Dr. Jeronimo Melgar MCV (RBC) [Entitic vol] 92.4 fL Normal 81.0-99.0 [facility] Comment on above: Performed By: #### B OX #### [facility] [address] [place] [address] Dr. Jeronimo Melgar MONO # 0.8 103/ul Normal 0.3-0.8 [facility] Comment on above: Performed By: #### B OX #### [facility] [address] [place] [address] Dr. Jeronimo Melgar Monocytes/100 WBC (Bld) 7.8 % Normal 1.7-12.0 [facility] Comment on above: Performed By: #### B OX #### [facility] [address] [place] [address] Dr. Jeronimo Melgar NEUT # 6.1 103/ul Normal 1.4-6.5 [facility] Comment on above: Performed By: #### B OX #### [facility] [address] [address] [address] Jeronimo Melgar Neutrophils/100 WBC (Bld) 63.5 % Normal 43.0-75.0 [facility] Comment on above: Performed By: #### B OX #### [facility] [address] [address] [address] Jeronimo Melgar Platelet mean volume (Bld) [Entitic vol] 10.7 fL Normal 9.5-13.5 [facility] Comment on above: Performed By: #### B OX #### [facility] [address] [address] [address] Jeronimo Melgar PLT 399 103/ul Normal 150-450 [facility] Comment on above: Performed By: #### B OX #### [facility] [address] [address] [address] Jeronimo Melgar RBC 4.73 106/ul Normal 4.20-5.40 [facility] Comment on above: Performed By: #### B OX #### [facility] [address] [address] [address] Jeronimo Melgar WBC 9.6 103/ul Normal 4.0-11.0 [facility] Comment on above: Performed By: #### B OX #### [facility] [address] [place] [address] Dr. Jeronimo Melgar CULTURE URINEon 04-19-2022 CULTURE URINE Culture Observations: LIGHT GROWTH OF MIXED GENITAL JONNY. NO POTENTIAL PATHOGENS SEEN. Normal [facility] Comment on above: Performed By: #### B OX #### [facility] [address] [address] [address] Jeronimo Melgar DRUG SCREEN RAPID (URINE)on 04-19-2022 AMP Negative Normal NEGATIVE [facility] Comment on above: Performed By: #### H IV12 #### [facility] [address] [address] [address] Jeronimo Melgar BAR Negative Normal NEGATIVE [facility] Comment on above: Performed By: #### H IV12 #### [facility] [address] [place] [address] Dr. Jeronimo Melgar BUP Negative Normal NEGATIVE [facility] Comment on above: Performed By: #### H IV12 #### [facility] [address] [place] [address] Dr. Jeronimo Melgar BZO Negative Normal NEGATIVE [facility] Comment on above: Performed By: #### H IV12 #### [facility] [address] [place] [address] Dr. Jeronimo Melgar KRISTINA Negative Normal NEGATIVE [facility] Comment on above: Performed By: #### H IV12 #### [facility] [address] [place] [address] Dr. Jeronimo Melgar CUT-OFFS SEE BELOW Normal [facility] Comment on above: Result Comment: AMP (Amphetamine): 500ng/mL, BAR (Barbituates): 200 ng/mL, BZO (Benzodiazepines): 150 ng/mL, BUP (Buprenorphine): 10 ng/mL, KRISTINA (Cocaine): 150 ng/mL, mAMP (Methamphetamine): 500 ng/mL, MTD (Methadone): 200 ng/mL, OPI (Opiates): 100 ng/mL, OXY (Oxycodone): 100 ng/mL, PCP (Phencyclidine): 25 ng/mL, PPX (Propoxyphene): 300 ng/mL, THC (Cannabinoids): 50 ng/mL, TCA (Trycyclic Antidepressants): 300 ng/mL Performed By: #### H IV12 #### [facility] [address] [place] [address] Dr. Jeronimo Melgar DRUG CUT HEADER DRUG CLASS TEST SYSTEM CUT-OFF CONCENTRATIONS ARE FOLLOWS: Normal [facility] Comment on above: Performed By: #### H IV12 #### [facility] [address] [place] [address] Dr. Jeronimo Melgar mAMP Negative Normal NEGATIVE [facility] Comment on above: Performed By: #### H IV12 #### [facility] [address] [place] [address] Dr. Jeronimo Melgar MTD Negative Normal NEGATIVE [facility] Comment on above: Performed By: #### H IV12 #### [facility] [address] [address] [address] Jeronimo Melgar OPI Negative Normal NEGATIVE [facility] Comment on above: Performed By: #### H IV12 #### [facility] [address] [address] [address] Jeronimo Melgar OXY Negative Normal NEGATIVE [facility] Comment on above: Performed By: #### H IV12 #### [facility] [address] [address] [address] Jeronimo Melgar PCP Negative Normal NEGATIVE [facility] Comment on above: Performed By: #### H IV12 #### [facility] [address] [address] [address] Jeronimo Melgar PPX Negative Normal NEGATIVE [facility] Comment on above: Performed By: #### H IV12 #### [facility] [address] [place] [address] Dr. Jeronimo Melgar TCA Negative Normal NEGATIVE [facility] Comment on above: Performed By: #### H IV12 #### [facility] [address] [place] [address] Dr. Jeronimo Melgar THC Negative Normal NEGATIVE [facility] Comment on above: Performed By: #### H IV12 #### [facility] [address] [place] [address] Dr. Jeronimo Melgar GLYCOHEMOGLOBIN A1Con 2022 ADA RECOMMENDATION SEE BELOW Normal [facility] Comment on above: Result Comment: ADA RECOMMENDED LIMIT 4.0 - 6.0 ADA THERAPEUTIC TARGET < 7.0 ACTION SUGGESTED > 7.0 Performed By: #### A 1C #### [facility] [address] [place] [address] Dr. Jeronimo Melgar Glucose [Mass/Vol] 100 mg/dL Normal [facility] Comment on above: Performed By: #### A 1C #### [facility] [address] [place] [address] Dr. Jeronimo Melgar HbA1c (Bld) [Mass fraction] 5.1 % Normal 4.5-6.2 [facility] Comment on above: Performed By: #### A 1C #### [facility] [address] [place] [address] Dr. Jeronimo Melgar TYPE AND SCREENon 04-19-2022 TYPE AND SCREEN Negative Normal [facility] Comment on above: Performed By: #### B OX #### [facility] [address] [place] [address] Dr. Jeronimo Melgar CBC AUTO DIFFon 04-02-2022 BASO # 0.0 103/ul Normal 0.0-0.1 [facility] Comment on above: Performed By: #### C BC #### [facility] [address] [place] [address] Dr. Jeronimo Melgar Basophils/100 WBC (Bld) 0.3 % Normal 0.2-2.0 [facility] Comment on above: Performed By: #### C BC #### [facility] [address] [place] [address] Dr. Jeronimo Melgar EO # 0.0 103/ul Normal 0.0-0.7 [facility] Comment on above: Performed By: #### C BC #### [facility] [address] [place] [address] Dr. Jeronimo Melgar Eosinophils/100 WBC (Bld) 0.2 % Critically low 0.9-7.0 [facility] Comment on above: Performed By: #### C BC #### [facility] [address] [place] [address] Dr. Jeronimo Melgar Erythrocyte distribution width (RBC) [Ratio] 12.9 % Normal 11.0-15.0 [facility] Comment on above: Performed By: #### C BC #### [facility] [address] [place] [address] Dr. Jeronimo Melgar Hematocrit (Bld) [Volume fraction] 37.5 % Normal 36.0-48.0 [facility] Comment on above: Performed By: #### C BC #### [facility] [address] [place] [address] Dr. Jeronimo Melgar Hemoglobin (Bld) [Mass/Vol] 12.4 g/dL Normal 12.0-16.0 [facility] Comment on above: Performed By: #### C BC #### [facility] [address] [address] [address] Jeronimo Melgar IG # 0.05 10e3/ul Critically high 0.00-0.03 [facility] Comment on above: Performed By: #### C BC #### [facility] [address] [address] [address] Jeronimo Melgar IG % 0.3 % Normal 0.0-0.5 [facility] Comment on above: Performed By: #### C BC #### [facility] [address] [place] [address] Dr. Jeronimo Melgar LYMPH # 2.0 103/ul Normal 1.2-3.8 [facility] Comment on above: Performed By: #### C BC #### [facility] [address] [place] [address] Dr. Jeronimo Melgar Lymphocytes/100 WBC (Bld) 14.1 % Critically low 20.5-60.0 [facility] Comment on above: Performed By: #### C BC #### [facility] [address] [place] [address] Dr. Jeronimo Melgar MANUAL DIFF REQ NO Normal [facility] Comment on above: Performed By: #### C BC #### [facility] [address] [place] [address] Dr. Jeronimo Melgar MCH (RBC) [Entitic mass] 27.9 pg Normal 26.7-34.0 [facility] Comment on above: Performed By: #### C BC #### [facility] [address] [place] [address] Dr. Jeronimo Melgar MCHC (RBC) [Mass/Vol] 33.1 g/dL Normal 29.9-35.2 [facility] Comment on above: Performed By: #### C BC #### [facility] [address] [place] [address] Dr. Jeronimo Melgar MCV (RBC) [Entitic vol] 84.3 fL Normal 81.0-99.0 [facility] Comment on above: Performed By: #### C BC #### [facility] [facility] [address] [place] [address] Dr. Jeronimo Melgar MONO # 0.6 103/ul Normal 0.3-0.8 The [facility] Comment on above: Performed By: #### C BC #### [facility] [address] [place] [address] Dr. Jeronimo Melgar Monocytes/100 WBC (Bld) 4.0 % Normal 1.7-12.0 The [facility] Comment on above: Performed By: #### C BC #### [facility] [address] [place] [address] Dr. Jeronimo Melgar NEUT # 11.7 103/ul Critically high 1.4-6.5 The [facility] Comment on above: Performed By: #### C BC #### [facility] [address] [place] [address] Dr. Jeronimo Melgar Neutrophils/100 WBC (Bld) 81.1 % Critically high 43.0-75.0 The [facility] Comment on above: Performed By: #### C BC #### [facility] [address] [place] [address] Dr. Jeronimo Melgar Platelet mean volume (Bld) [Entitic vol] 10.2 fL Normal 9.5-13.5 The [facility] Comment on above: Performed By: #### C BC #### [facility] [address] [place] [address] Dr. Jeronimo Melgar PLT 420 103/ul Normal 150-450 [facility] Comment on above: Performed By: #### C BC #### [facility] [address] [place] [address] Dr. Jeronimo Melgar RBC 4.45 106/ul Normal 4.20-5.40 The [facility] Comment on above: Performed By: #### C BC #### [facility] [address] [place] [address] Dr. Jeronimo Melgar WBC 14.4 103/ul Critically high 4.0-11.0 The [facility] Comment on above: Performed By: #### C BC #### [facility] [address] [place] [address] Dr. Jeronimo Melgar ER URINE PROFILEon 2 Bilirubin Ql (U) Negative Normal NEGATIVE The [facility] Comment on above: Performed By: #### B OX #### [facility] [address] [place] [address] Dr. Jeronimo Melgar Clarity (U) CLEAR Normal CLEAR [facility] Comment on above: Performed By: #### B OX #### [facility] [address] [place] [address] Dr. Jeronimo Melgar Color (U) YELLOW Normal YELLOW [facility] Comment on above: Performed By: #### B OX #### [facility] [address] [place] [address] Dr. Jeronimo Melgar ERUAHMarko A micrscopic examination will be performed if indicated. Normal [facility] Comment on above: Performed By: #### B OX #### [facility] [address] [place] [address] Dr. Jeronimo Melgar Glucose Ql (U) Negative Normal NEGATIVE The [facility] Comment on above: Performed By: #### B OX #### [facility] [address] [place] [address] Dr. Jeronimo Melgar Hemoglobin Ql (U) Negative Normal NEGATIVE [facility] Comment on above: Performed By: #### B OX #### [facility] [address] [place] [address] Dr. Jeronimo Melgar Ketones Ql (U) >=80 Abnormal NEGATIVE The [facility] Comment on above: Performed By: #### B OX #### [facility] [address] [place] [address] Dr. Jeronimo Melgar LEUKOCYTES Negative Normal NEGATIVE [facility] Comment on above: Performed By: #### B OX #### [facility] [address] [place] [address] Dr. Jeronimo Melgar Nitrite Ql (U) Negative Normal NEGATIVE [facility] Comment on above: Performed By: #### B OX #### [facility] [address] [place] [address] Dr. Jeronimo Melgar pH (U) 7.0 [pH] Normal 5-9 [facility] Comment on above: Performed By: #### B OX #### [facility] [address] [place] [address] Dr. Jeronimo Melgar SPEC GRAVITY 1.020 Normal 1.005-<=1.025 The [facility] Comment on above: Performed By: #### B OX #### [facility] [address] [place] [address] Dr. Jeronimo Melgar UA PROTEIN TRACE Normal NEGATIVE/ TRACE The [facility] Comment on above: Performed By: #### B OX #### [facility] [address] [place] [address] Dr. Jeronimo Melgar UR MICRO IND NOT INDICATED Normal The [facility] Comment on above: Performed By: #### B OX #### [facility] [address] [place] [address] Dr. Jeronimo Melgar Urobilinogen Qn (U) 1.0 {Pepito'U}/dL Normal 0.2 - 1. 0 [facility] Comment on above: Performed By: #### B OX #### [facility] [address] [place] [address] Dr. Jeronimo Melgar PROF CHEM 8 (BAS METB)on Anion gap [Moles/Vol] 12.7 mmol/L Normal [facility] Comment on above: Performed By: #### B MP #### [facility] [address] [place] [address] Dr. Jeronimo Melgar Calcium [Mass/Vol] 9.1 mg/dL Normal 8.5-10.1 [facility] Comment on above: Performed By: #### B MP #### [facility] [address] [place] [address] Dr. Jeronimo Melgar Chloride [Moles/Vol] 103 mmol/L Normal 98-107 [facility] Comment on above: Performed By: #### B MP #### [facility] [address] [place] [address] Dr. Jeronimo Melgar CO2 [Moles/Vol] 23.9 mmol/L Normal 21.0-32.0 [facility] Comment on above: Performed By: #### B MP #### [facility] [address] [address] [address] Jeronimo Melgar Creatinine [Mass/Vol] 0.78 mg/dL Normal 0.55-1.02 [facility] Comment on above: Performed By: #### B MP #### [facility] [address] [address] [address] Jeronimo Melgar EGFR-AF DJIBOUTIAN >60 Normal >=60 [facility] Comment on above: Performed By: #### B MP #### [facility] [address] [address] [address] Jeronimo Melgar EGFR-NON AF DJIBOUTIAN >60 Normal >=60 [facility] Comment on above: Performed By: #### B MP #### [facility] [address] [address] [address] Jeronimo Melgar Glucose [Mass/Vol] 155 mg/dL Critically high 74-106 [facility] Comment on above: Performed By: #### B MP #### [facility] [address] [address] [address] Jeronimo Melgar Potassium [Moles/Vol] 3.6 mmol/L Normal 3.5-5.1 [facility] Comment on above: Performed By: #### B MP #### [facility] [address] [address] [address] Jeronimo Melgar Sodium [Moles/Vol] 136 mmol/L Normal 136-145 [facility] Comment on above: Performed By: #### B MP #### [facility] [address] [address] [address] Jeronimo Melgar Urea nitrogen [Mass/Vol] 7.0 mg/dL Normal 7.0-18.0 [facility] Comment on above: Performed By: #### B MP #### [facility] [address] [place] [address] Dr. Jeronimo Melgar Urea nitrogen/Creatinine [Mass ratio] 9.0 mg/mg Normal [facility] Comment on above: Performed By: #### B MP #### [facility] [address] [address] [address] Jeronimo Melgar US PREG TVon 03-28-2022 [...] ANGELA SCOTT Date: 2022-03-28 16:32 Normal The [facility] US PELVIS AND TRANSVAGon US PELVIS AND [...] CHRISTIAN KATE Date: 2021-10-17 16:35 Normal [facility] CHLAMYDIA/GONOCOCCUS MILY ( AB/URINE/PAPon 10-14-2021 Chlamydia trachomatis, MILY Positive Abnormal Negative [facility] Comment on above: Result Comment: . Performed By: #### C T/NGNA #### [facility] [address] [address] [address] Jeronimo Melgar Neisseria gonorrhoeae, MILY Negative Normal Negative [facility] Comment on above: Performed By: #### C T/NGNA #### [facility] [address] [address] [address] Jeronimo Melgar VAGINITIS/VAGINOSIS DNA PROB Obed 10-13-2021 Lesa species Negative Normal Negative The [facility] Comment on above: Performed By: #### V AGINT #### [facility] [address] [address] [address] Jeronimo Melgar Gardnerella vaginalis Negative Normal Negative [facility] Comment on above: Performed By: #### V AGINT #### [facility] [address] [address] [address] Jeronimo Melgar Trichomonas vaginalis Negative Normal Negative [facility] Comment on above: Performed By: #### V AGINT #### [facility] [address] [address] [address] Jeronimo Melgar XR foot LT min 3V*on 022 XR foot LT min 3V* [facility] [place] [address] [place] [address] XRay Report Signed Patient: Lia Desai MR#: [id number] : 2000 Acct:[id number] Age/Sex: 20 / F ADM Date: 07/18/21 Loc: ER Room: Type: [facility] ER Attending Dr: Ordering Provider: Oneil Ricci APRN Date of Service: 07/18/21 XR/XR foot LT min 3V*: Extremity Injury, Lower ([id number]) XR/XR ankle LT min 3V*: Extremity Injury, [...] Brewer Jr., M.D.07/18/2021 6:15 PM Dictation Location: [place] [address] Transcribed By: CYNDEE 07/18/216 Dictated By: Bijan Brewer Jr, MD 07/18/211812 Signed By: 07/18/211814 [facility] XR knee RT 4V*on 05-15-2021 XR knee RT 4V* [facility] [place] [address] [place], [place] [id number] XRay Report Signed Patient: Lia Desai MR#: [id number] : 2000 Acct:[id number] Age/Sex: 20 / F ADM Date: 05/15/21 Loc: ER Room: Type: [facility] ER Attending Dr: Ordering Provider: Yovani Valle [...] Ana Juan M.D.05/15/2021 8:11 PM Dictation Location: [place] [address] Transcribed By: [facility] 05/15/212010 Dictated By: Ana Juan II, MD 05/15/212008 Signed By: 05/15/212010 [facility] Vital Signs Date Time Vital Sign Value Performing Clinician Faci lity 07-18-2021 16:56-0400 Body height 167.64 cm [facility] 07-18-2021 16:56-0400 Body mass index (BMI) [Percentile] Per age and sex 98.9 % [facility] 07-18-2021 16:56-0400 Body mass index (BMI) [Ratio] 44.3 kg/m2 [facility] 07-18-2021 16:56-0400 Body temperature 98.3 [degF] [facility] 07-18-2021 16:56-0400 Body weight 124.6 kg [facility] 07-18-2021 16:56-0400 Diastolic blood pressure 108 mm[Hg] [facility] 07-18-2021 16:56-0400 Heart rate 80 /min [facility] 07-18-2021 16:56-0400 Respiratory rate 18 /min [facility] 07-18-2021 16:56-0400 Systolic blood pressure 162 mm[Hg] [facility] 05-15-2021 19:47-0500 Body height 167.64 cm [facility] 05-15-2021 19:47-0500 Body mass index (BMI) [Percentile] Per age and sex 98.9 % [facility] 05-15-2021 19:47-0500 Body mass index (BMI) [Ratio] 43.7 kg/m2 [facility] 05-15-2021 19:47-0500 Body temperature 98.8 [degF] [facility] 05-15-2021 19:47-0500 Body weight 122.95 kg [facility] 05-15-2021 19:47-0500 Diastolic blood pressure 65 mm[Hg] [facility] 05-15-2021 19:47-0500 Heart rate 75 /min [facility] 05-15-2021 19:47-0500 Respiratory rate 16 /min [facility] 05-15-2021 19:47-0500 SaO2% (BldA) [Mass fraction] 100 % [facility] 05-15-2021 19:47-0500 Systolic blood pressure 144 mm[Hg] [facility] Encounters Encounter Date Encounter Type Care Provider Facility Start: 07-01-2023 End: 07-01-2023 ambulatory DAPHNIE CR Not Available Start: 06-18-2023 End: 06-18-2023 ambulatory ROBERT MARRERO Not Available Start: 06-03-2023 End: 06-03-2023 ambulatory ROBERT BLAKE Not Available Start: 05-26-2023 End: 05-26-2023 Emergency department patient visit Yassine [facility] Facility:[facility] Start: 05-17-2023 Clinisync Result Encounter Robert Marrero DO Work Phone: [facility] External [facility] Unsolicited Start: 05-17-2023 Clinisync Result Encounter Robert Marrero DO Work Phone: [facility] External [facility] Unsolicited Start: 05-15-2023 End: 05-15-2023 Emergency department patient visit Mamie Bambi Mooer Facility:[facility] Start: 05-14-2023 Chart abstracting Robert Marrero DO Work Phone: [facility] Start: 05-07-2023 Documentation procedure Leah Hernandez RN [facility] Certified Nurse Internal Medicine Nurse - [place] Start: 05-02-2023 End: 05-02-2023 ambulatory ROBERT MARRERO Not Available Start: 04-19-2023 Telephone encounter Leah Hernandez RN [facility] Certified Nurse Internal Medicine Nurse - [place] Start: 04-17-2023 Telephone encounter Leah Hernandez RN [facility] Certified Nurse Internal Medicine Nurse - [place] Start: 04-15-2023 End: 04-15-2023 Emergency department patient visit Yassine Maldonado Facility:[facility] Start: 04-12-2023 End: 04-12-2023 ambulatory Oneil MILLS Facility:[facility] Start: 04-05-2023 Orders Only Leah Hernandez RN [facility] Certified Nurse Internal Medicine Nurse - [place] Comment on above: Nausea and vomiting during (Primary Dx) Start: 03-01-2023 End: 03-01-2023 Emergency department patient visit Tom Smith Facility:[facility] Start: 02-26-2023 End: 02-26-2023 ambulatory Errol Martin PAC Facility:[facility] Start: 02-14-2023 End: 02-14-2023 ambulatory DORA MILLS Facility:[facility] Start: 11-15-2022 End: 11-15-2022 Emergency department patient visit None Provider Facility:[facility] Start: 08-25-2022 End: 08-26-2022 ambulatory Alaina Matta CNM Facility:[facility] Start: 08-11-2022 End: 08-11-2022 Emergency department patient visit Adamaris Jaeger PA-C Facility:[facility] Start: 08-08-2022 End: 08-09-[address] BALDOMERO ELLER . Facility:[facility] Start: 06-12-2022 End: 06-12-2022 ambulatory None Provider Facility:[facility] Start: 06-02-2022 End: 06-03-[address] BALDOMERO ELLER . Facility:[facility] Start: 05-18-2022 Encounter for other preprocedural examination DR BALDOMERO ELLER . [facility] Start: 05-17-2022 End: 05-17-[address] BALDOMERO [...] DR ANA LEDESMA Facility:[facility] Start: 03-29-2022 ambulatory [facility] Facility:[facility] Start: 03-28-2022 End: 03-29-[address] BALDOMERO ELLER . Facility:[facility] Start: 10-17-2021 End: 10-18-[address] BALDOMERO ELLER . Facility:[facility] Start: 10-12-2021 End: 10-12-[address] BALDOMERO ELLER . Facility:[facility] Start: 07-18-2021 End: 07-18-2021 Emergency department patient visit [facility] Start: 05-15-2021 End: 05-15-2021 Emergency department patient visit [facility] Procedures Date Procedure Procedure Detail Performing Clinician Start: 05-17-2023 ALL CBC WITH AUTO DIFF Robert Marrero DO Work Phone: Start: 05-15-2021 X-ray of right knee Plan of Treatment Date Care Activity Detail Author Start: 05-15-2028 DTaP,Tdap and Td Vaccines (2 - Td or Tdap) DTaP,Tdap and Td Vaccines (2 - Td or Tdap) [facility] Start: 03-05-2024 Adult BMI Screening Adult BMI Screen ing [facility] Start: 03-05-2024 Tobacco Screening Tobacco Screening [facility] Start: 09-26-2023 Screening for Chlamy driss trachomatis Chlamydia Screening [facility] Start: 06-03-2023 End: 06-03-2023 Patient encounter procedure 06/03/2023 2:10 PM EST Routine [facility] [address] [place] [address] Robert Marrero DO [address] [place] [address] [facility] Start: 04-17-2023 End: 04-17-2023 ambulatory 04/17/2023 8:30 AM EST Initial [facility] Certified Nurse Internal Medicine Nurse - [place] [address] [address] [facility] Certified Nurse Internal Medicine [facility] - [place] Start: 12-07-2022 Influenza vaccination Influenza Vacc ine [facility] Start: 2022 Screening for malign ant neoplasm of cervix Pap Smear [facility] Start: 07-18-2021 X-ray of left ankle XR ankle LT min 3V* [facility] Start: 07-18-2021 X-ray of left foot XR foot LT min 3V * [facility] Start: 10-08-2019 Adult BMI Follow Up Plan Adult BMI Follow Up Plan [facility] Start: 2013 Depression Screening Depression Scre ening [facility] Patient Education [facility] Work Phone: Patient referral [facility] Work Phone: Payers Date Payer Category Payer Medicaid [id number] 2000 Unknown [id number] 2.16.84 0.1.776731.3.579.2.593 2001 Unknown [id number] 2.16.84 0.1.112477.3.579.2.593 2001 Unknown [id number] 2.16.84 0.1.062864.3.579.2.593 2001 Unknown [id number] 2.16.84 0.1.560660.3.579.2.593 2001 Unknown [id number] 2.16.84 0.1.793938.3.579.2.593 2001 Unknown [id number] 2.16.84 0.1.343824.3.579.2.593 2001 Unknown [id number] 2.16.84 0.1.060597.3.579.2.593 2001 Unknown [id number] 2.16.84 0.1.665467.3.579.2.593 2001 Unknown [id number] 2.16.84 0.1.573422.3.579.2.593 2001 Unknown [id number] 2.16.84 0.1.725774.3.579.2.593 2001 Unknown [id number] 2.16.84 0.1.631793.3.579.2.593 2001 Unknown [id number] 2.16.8 40.1.211093.3.579.2.718 2001 Unknown [id number] 2.16.8 40.1.373532.3.579.2.718 2001 Unknown [id number] 2.16.8 40.1.902166.3.579.2.718 2001 Unknown [id number] 2.16.8 40.1.450063.3.579.2.718 2001 Unknown [id number] 2.16.8 40.1.780988.3.579.2.718 2001 Unknown [id number] 2.16.8 40.1.835139.3.579.2.8 2001 Unknown [id number] 2.16.8 40.1.316774.3.579.2.718 2001 Unknown [id number] 2.16.8 40.1.920159.3.579.2.718 2001 Unknown [id number] 2.16.8 40.1.673397.3.579.2.718 2001 Unknown [id number] 2.16.8 40.1.499120.3.579.2.8 2001 Unknown [id number] 2.16.8 40.1.524692.3.579.2.8 2001 Unknown [id number] 2.16.84 0.1.242473.3.579.2.9 2001 Unknown [id number] 2.16.84 0.1.482178.3.579.2.9 2001 Unknown [id number] 2.16.84 0.1.900722.3.579.2.9 2001 Unknown [id number] 2.16.84 0.1.831596.3.579.2.1259 1959 Unknown [id number] Self-pay Self Pay [id number] Social History Date Type Detail Facility Start: 07-18-2021 End: 05-14-2023 Tobacco smoking status NHIS Never smoked tobacco (finding) [facility] Start: 2000 Sex Assigned At Female [facility] History of tobacco use Passive smoker [facility] Start: 08-01-2022 Tobacco use and exposure Smokeless tobacco non-user [facility] Start: 03-05-2023 Alcohol intake Ex-drinker (finding) [facility] Start: 03-05-2023 End: 05-14-2023 History of Social function [facility] Start: 03-05-2023 End: 05-14-2023 Tobacco use panel [facility] Housing Instability Unknown [facility] Start: 08-14-2022 Alcohol Comment social [facility] Start: 2000 Sex Assigned At Not on file [facility] Start: 05-14-2023 Alcohol intake Lifetime non-drinker (finding) [facility] Start: 03-20-2023 [facility] Start: 05-01-2023 Gender identity Identifies as female gender (finding) [facility] Start: 05-01-2023 Sexual orientation Heterosexual (finding) [facility] Clinical Notes 06-12-2022 to 05-26-2023 Leah [...] Keep all follow-up visits. Medicines ? Take uxho-mbu-nwioesp and prescription medicines only as told by [...] be an em (more content not included)... [facility] 05-15-2023 Note Education Materials Obstetrics and [...] uri tea. ? Taking prescription medicine or rpgq-suu-tnirbyt medicine as told by your health care [...] or sour. These include lemonade, uri prabhakar, lemon?shoshone-paiute soda, ice water, and sparkling water. Things [...] food. The s (more content not included)... [facility] 05-07-2023 History of Presen t illness Narrative Letter sent to patient via [facility] and also to her My Chart regarding her missed OB intake appointment and also her MICHAEL for her Chlamydia. documented in this encounter [facility] 04-19-2023 Miscellaneous Notes Called patient to reschedule her IOB intake visit. No answer. Left message to call office to reschedule her appointment. documented in this encounter [facility] 04-19-2023 Telephone encounter Note Called patient to reschedule her IOB intake visit. No answer. Left message to call office to reschedule her appointment. [facility] 04-17-2023 Miscellaneous Notes Patient called for her OB intake per phone. No answer. Left message to call office. documented in this encounter [facility] 04-17-2023 Telephone encounter Note Patient called for her OB intake per phone. No answer. Left message to call office. [facility] 04-15-2023 Note Education Materials Gastroenterology Nausea [...] ? Low-calorie sports drinks. ? Eat bland, fesm-wr-fxpsja foods in small amounts as you are able, such as: ? Bananas. ? Applesauce. ? Rice. ? Low-fat (lean) meats. ? [place]. ? Crackers. ? Avoid drinking fluids that have a lot of sugar or caffeine in them. This includes energy drinks, sports drinks, and soda. ? Avoid alcohol. ? Avoid spicy or fatty foods. General instructions ? Take qeai-jhx-oraryvu and prescription medicines only as told by your doctor. ? Drink enough fluid to keep your pee (urine) pale yellow. ? Wash your hands often with soap and water for at least 20 seconds. If you cannot use soap and water, use hand managed care specialist. ? Make sure that everyone in your [...] doctor about eating and drinking. ? Take wxip-eil-zdgwuam and prescription medicines only as told by your doctor. ? Contact your doctor if your symptoms get worse or you have new symptoms. ? Keep all follow-up visits. This information is not intended to replace advice given to you by your health care provider. Make sure you discuss any questions you have with your health care provider. Document Revised: 09/29/2021 Document Reviewed: 09/29/2021 [employer] Patient Education ? 2022 [email or web address]. [facility] 04-12-2023 Note Patient Education Ma terials [...] these instructions at home: Medicines ? Take fvgn-nak-vzwkxhb and prescription medicines only as told by your health care provider. Do not use any prescription, uwxy-zrs-dnoavrb, or herbal medicines for morning sickness without [...] provider. Document Revised: 11/07/2020 Document Reviewed: 10/17/2020 [employer] Patient Education ? 2022 [email or web address] Education Materials Pulmonary Medicine Acute [...] Follow these instructions at home: ? Take upaf-pcj-nsgohxs and prescription medicines only as told by [...] and water are not available, use hand managed care specialist. ? Avoid contact with people who have [...] is easier to cough up. ? Take gdal-unm-vonfrhc an (more content not included)... [facility] 02-26-2023 Note Patient Education Ma terials [...] to help relieve symptoms, such as: ? Fivo-lno-dewetso cold medicines. ? Cough suppressants. Coughing is [...] other clear broths. General instructions ? Take drbt-tgi-ribfglc and prescription medicines only as told by [...] and water are not available, use hand managed care specialist. ? Avoid touching your mouth, face, eyes, [...] These symptoms may (more content not included)... [facility] 02-14-2023 Note Patient Education Ma terials [...] elastic wrap to support your hand. ? Okhw-vqh-bzirern medicines to control pain. Follow these instructions [...] or lying down. General instructions ? Take ptfu-evr-cnxzdbm and prescription medicines only as told by [...] provider. Document Revised: 07/13/2021 Document Reviewed: 07/13/2021 [employer] Patient Education ? 2022 [employer] How to Use Cold Therapy Cold [...] on your pr (more content not included)... [facility] 11-15-2022 Note Education Materials Orthopedics Sciatica [...] by your health care provider. Stretching and hxqfc-oz-fvtdrn exercises These exercises warm up your muscles [...] standing, keep y (more content not included)... [facility] 08-11-2022 Note Education Materials Obstetrics and [...] these instructions at home: Medicines ? Take lwcf-nib-kjygdct and prescription medicines only as told by [...] Where to find more information ? [employer]: acog.org ? U.[place]. Department of Health and Human Services Office of Women's Health: hrsa.gov/syotoe-ydahhz-xmrmee Contact a doctor if: ? You have [...] ? Text the Crisis Text Line at 272167. Summary ? A miscarriage is the loss [...] provider. Document Revised: 09/23/2020 Document Reviewed: 09/23/2020 [employer] Patient Education ? 2021 [email or web address]. [facility] 06-12-2022 Note Patient Education Ma terials [...] these instructions at home: Medicines ? Take gxkd-qht-tudxosf and prescription medicines only as told by [...] things can cause a cough. ? Take wnem-zly-dmldkbr and prescription medicines only as told by [...] provider. Document Revised: 05/13/2020 Document Reviewed: 04/13/2019 [employer] Patient Education ? 2021 [employer] Infectious Disease Pharyngitis Pharyngitis is a [...] these instructions at home: Medicines ? Take japs-fpv-jlkriew and prescription medicines only as told by your doctor. ? If you were prescribed an antibiotic medicine, take it as told by your doctor. Do not stop taking the antibiotic even if you start to feel better. ? Use throat loze (more content not included)... [facility] Evaluation note No assessment inform ation available [facility] Work Phone: Evaluation note Diagnosis Nausea and vomiting during - Primary documented [facility] this [facility] filed[facility] in this [facility]Not [facility] filedocumented in this encounter [facility] Chief Complaint and Reason for Visit Chief [...] Dates NON STAFF Primary Care Provider Active Body Mechanic Relationship Specialty Start Date End Date [facility] [address] [place] PCP - General Family Medicine 08/11/18 Body Mechanic Relationship Specialty Start Date End Date [facility] [address] PCP - General Family Medicine 08/11/18 Body Mechanic Relationship Specialty Start Date End Date [facility] [address] [place] PCP - General Family Medicine 08/11/18 Goals (unrecognized section and content) Goals may be documented in a n alternate sectionNot on filedocumented as of this encounterNot on filedocumented as of this encounterNot on filedocumented as of this encounterNot on filedocumented as of this encounter INFORMATION SOURCE (unrecogn ized section and content) DATE CREATED AUTHOR 07/27/2021 [facility] DATE CREATED AUTHOR AUTHOR'S ORGANIZ ATION 08/16/2022 [facility] DATE CREATED AUTHOR AUTHOR'S ORGANIZ ATION 06/08/2023 [facility] DATE CREATED AUTHOR AUTHOR'S ORGANIZ ATION 07/02/2023 [facility] Specialists EPIC FOR RECORDS PERTAINING TO PATIENTS WHO ARE [...] ON THE PRIMARY CLINICAL RECORDS. [facility] [employer] [facility]. provides no warranty or guarantee of the accuracy or completeness of information in this document.
--- NOTE | 2023-07-15 21:20 | ED_ITS ---
Documented by User: GENE Hale 07/15/23 21:56 HPI - Abdominal Pain General Chief Complaint: Abdominal Pain Stated Complaint: 19 WEEKS PREG, LOWER ABDOMINAL/VAGINAL PAIN Time Seen by Provider: 07/15/23 21:03 Source: patient Mode of arrival: walk-in Limitations: no limitations History of Present Illness HPI narrative: Patient is a 22-year-old female who presents to the emergency department for the evaluation of pelvic discomfort that has been coming and going since last week but was more constant today. She is 19 weeks . She is a A4. She denies vaginal bleeding or fluid leakage. She took Tylenol earlier today. She has not contacted her OB. She states last week she started to develop sharp stabbing pains in the suprapubic abdomen into the vagina and low back. She states the pain comes and goes but when the sharp pain resolves, she continues to have a dull ache. No urinary symptoms, no fevers. She has continuous hyperemesis throughout this , no new vomiting or diarrhea. Related Data Previous Rx's ?Medication ?Instructions ?Recorded cephalexin 500 mg capsule 500 mg PO Q8H 5 days #15 caps 07/15/23 Allergies Allergy/AdvReac Type Severity Reaction Status Date / Time adhesive tape Allergy Severe Verified 07/15/23 21:13 azithromycin [From Zithromax] Allergy Severe Verified 07/15/23 21:13 metronidazole Allergy Mild Verified 07/15/23 21:15 Review of Systems ROS Constitutional Denies: fever or chills Ears, nose, mouth, and throat Denies: throat pain or nasal congestion Cardiovascular Denies: chest pain Respiratory Denies: shortness of breath or cough Gastrointestinal Reports: abdominal pain, nausea and vomiting; Denies: diarrhea Genitourinary Reports: pelvic pain; Denies: painful urination, vaginal bleeding or vaginal discharge Musculoskeletal Denies: back pain Integumentary/Breast Denies: rash Neurological Denies: headache Hematologic/Lymphatic Denies: easy bruising or easy bleeding Exam Narrative Exam Narrative: Gen.: Awake, alert, in no distress Head: Normocephalic, atraumatic ENT: Moist mucous membranes Respiratory: No respiratory distress Gastrointestinal: Abdomen is soft, nondistended and Mildly tender to palpation in the suprapubic abdomen with no McBurney's point tenderness. No pain out of proportion on exam, no guarding or rebound Extremities: Moves extremities equally Psych: Normal mood and affect Neuro: No focal neuro deficit Skin: Warm, dry, intact Constitutional Vital Signs, click to edit/add: Last Vital Signs Temp 98.1 F 07/15/23 21:00 Pulse 86 07/15/23 21:00 Resp 20 07/15/23 21:00 BP 125/64 07/15/23 21:59 Pulse Ox 99 07/15/23 21:00 O2 Del Method Room Air 07/15/23 21:00 Course Vital Signs Vital signs: Vital Signs Temperature 98.1 F 07/15/23 21:00 Pulse Rate 86 07/15/23 21:00 Respiratory Rate 20 07/15/23 21:00 Blood Pressure 143/84 H 07/15/23 21:00 Pulse Oximetry 99 07/15/23 21:00 Oxygen Delivery Method Room Air 07/15/23 21:00 Temperature 98.1 F 07/15/23 21:00 Pulse Rate 86 07/15/23 21:00 Respiratory Rate 20 07/15/23 21:00 Blood Pressure 125/64 07/15/23 21:59 Pulse Oximetry 99 07/15/23 21:00 Oxygen Delivery Method Room Air 07/15/23 21:00 MDM - Abdominal Pain MDM Narrative Medical decision making narrative: 2154: Urine obtained, contaminated but evidence of mild UTI. Patient treated with Keflex and Tylenol. US studies pending and case is turned over to attending physician for disposition at this time. Medical Records Attestation: I reviewed the patient's medical records. Lab Data Attestation: I reviewed the patient's lab results. Labs: Lab Results 07/15/23 Range/Units 21:20 Urine Color Yellow (YELLOW) Urine Clarity Clear (CLEAR) Urine pH 6.0 (5.0-9.0) Ur Specific [place] >=1.030 A (1.005-1.025) Urine Protein Negative (NEG/TRACE) mg/dL Urine Glucose (UA) Negative (NEGATIVE) mg/dL Urine Ketones Trace A (NEGATIVE) mg/dL Urine Occult Blood Trace-i (NEGATIVE) Urine Nitrite Negative (NEGATIVE) Urine Bilirubin Negative (NEGATIVE) Urine Urobilinogen 1.0 (0.2-1.0) EU/dL Ur Leukocyte Esterase Negative (NEGATIVE) Urine RBC 5-10 A (0-2) #/HPF Urine WBC 5-10 A (NONE SEEN) #/HPF Ur Squamous Epith Cells Many A (NONE/RARE) #/LPF Urine Crystals Seen A (None Seen) #/HPF Calcium Oxalate Crystal Many Amorphous Sediment Many Urine Bacteria Trace A (NONE SEEN) #/HPF Urine Casts None seen (NONE SEEN) #/LPF Urine Mucus Large A (NONE SEEN) Ur Culture Indicated? Yes Imaging Data Chest x-ray: Radiologist's impression: ITS Impressions Obstetrics Ultrasound 07/15/23 21:07 IMPRESSION: 1. Single live intrauterine gestation in breech position with a heart rate of 148 bpm. 2. The cervix is closed measuring up to 3.3 cm. A trace amount of fluid is seen within the endocervical canal. 3. The placenta is anterior without evidence of placenta previa. Electronically authenticated by: Jones PEPPER Date: 07/16/2023 00:13 Obstetrics Ultrasound 07/15/23 21:07 IMPRESSION: 1. Single live intrauterine gestation in breech position with a heart rate of 148 bpm. 2. The cervix is closed measuring up to 3.3 cm. A trace amount of fluid is seen within the endocervical canal. 3. The placenta is anterior without evidence of placenta previa. Electronically authenticated by: Jones PEPPER Date: 07/16/2023 00:13 Discharge Plan Discharge Stand Alone Forms: Portal Instructions Chief Complaint: Abdominal Pain Clinical Impression: UTI (urinary tract infection), Abdominal pain affecting Patient Disposition: Home, Self-Care Prescriptions / Home Meds: New cephalexin 500 mg capsule 500 mg PO Q8H 5 Days Qty: 15 0RF Print Language: Amharic Instructions: Urinary Tract Infection in (ED) Additional Instructions: drink plenty of fluids and follow up with your Pressing Machine Operator Referrals: Physician,Non-Staff, [Primary Care Provider] - 1 week Documented by User: Gus Forde MD 07/16/23 00:49 HPI - Abdominal Pain General Chief Complaint: Abdominal Pain Stated Complaint: 19 WEEKS PREG, LOWER ABDOMINAL/VAGINAL PAIN Time Seen by Provider: 07/15/23 21:03 Related Data Previous Rx's ?Medication ?Instructions ?Recorded cephalexin 500 mg capsule 500 mg PO Q8H 5 days #15 caps 07/15/23 Allergies Allergy/AdvReac Type Severity Reaction Status Date / Time adhesive tape Allergy Severe Verified 07/15/23 21:13 azithromycin [From Zithromax] Allergy Severe Verified 07/15/23 21:13 metronidazole Allergy Mild Verified 07/15/23 21:15 Exam Constitutional Vital Signs, click to edit/add: Last Vital Signs Temp 98.1 F 07/15/23 21:00 Pulse 86 07/15/23 21:00 Resp 20 07/15/23 21:00 BP 125/64 07/15/23 21:59 Pulse Ox 99 07/15/23 21:00 O2 Del Method Room Air 07/15/23 21:00 Course Vital Signs Vital signs: Vital Signs Temperature 98.1 F 07/15/23 21:00 Pulse Rate 86 07/15/23 21:00 Respiratory Rate 20 07/15/23 21:00 Blood Pressure 143/84 H 07/15/23 21:00 Pulse Oximetry 99 07/15/23 21:00 Oxygen Delivery Method Room Air 07/15/23 21:00 Temperature 98.1 F 07/15/23 21:00 Pulse Rate 86 07/15/23 21:00 Respiratory Rate 20 07/15/23 21:00 Blood Pressure 125/64 07/15/23 21:59 Pulse Oximetry 99 07/15/23 21:00 Oxygen Delivery Method Room Air 07/15/23 21:00 MDM - Abdominal Pain MDM Narrative Medical decision making narrative: 2154: Urine obtained, contaminated but evidence of mild UTI. Patient treated with Keflex and Tylenol. US studies pending and case is turned over to attending physician for disposition at this time. care transferred at change of shift. US pending. US returned with live IUP and closed cervix. Patient informed of concern for UTI. Prescribed keflex and advised to follow up with her Pressing Machine Operator Lab Data Labs: Lab Results 07/15/23 Range/Units 21:20 Urine Color Yellow (YELLOW) Urine Clarity Clear (CLEAR) Urine pH 6.0 (5.0-9.0) Ur Specific [place] >=1.030 A (1.005-1.025) Urine Protein Negative (NEG/TRACE) mg/dL Urine Glucose (UA) Negative (NEGATIVE) mg/dL Urine Ketones Trace A (NEGATIVE) mg/dL Urine Occult Blood Trace-i (NEGATIVE) Urine Nitrite Negative (NEGATIVE) Urine Bilirubin Negative (NEGATIVE) Urine Urobilinogen 1.0 (0.2-1.0) EU/dL Ur Leukocyte Esterase Negative (NEGATIVE) Urine RBC 5-10 A (0-2) #/HPF Urine WBC 5-10 A (NONE SEEN) #/HPF Ur Squamous Epith Cells Many A (NONE/RARE) #/LPF Urine Crystals Seen A (None Seen) #/HPF Calcium Oxalate Crystal Many Amorphous Sediment Many Urine Bacteria Trace A (NONE SEEN) #/HPF Urine Casts None seen (NONE SEEN) #/LPF Urine Mucus Large A (NONE SEEN) Ur Culture Indicated? Yes Imaging Data Chest x-ray: Radiologist's impression: ITS Impressions Obstetrics Ultrasound 07/15/23 21:07 IMPRESSION: 1. Single live intrauterine gestation in breech position with a heart rate of 148 bpm. 2. The cervix is closed measuring up to 3.3 cm. A trace amount of fluid is seen within the endocervical canal. 3. The placenta is anterior without evidence of placenta previa. Electronically authenticated by: Jones PEPPER Date: 07/16/2023 00:13 Obstetrics Ultrasound 07/15/23 21:07 IMPRESSION: 1. Single live intrauterine gestation in breech position with a heart rate of 148 bpm. 2. The cervix is closed measuring up to 3.3 cm. A trace amount of fluid is seen within the endocervical canal. 3. The placenta is anterior without evidence of placenta previa. Electronically authenticated by: Jones PEPPER Date: 07/16/2023 00:13 Discharge Plan Discharge Stand Alone Forms: Portal Instructions Chief Complaint: Abdominal Pain Clinical Impression: UTI (urinary tract infection), Abdominal pain affecting Patient Disposition: Home, Self-Care Prescriptions / Home Meds: New cephalexin 500 mg capsule 500 mg PO Q8H 5 Days Qty: 15 0RF Print Language: Amharic Instructions: Urinary Tract Infection in (ED) Additional Instructions: drink plenty of fluids and follow up with your Pressing Machine Operator Referrals: Physician,Non-Staff, MD [Primary Care Provider] - 1 week
[2023-07-15 21:31] LABS: Bilirubin Urine NEGATIVE (NEGATIVE); Blood Urine TRACE-I (NEGATIVE); Clarity Urine CLEAR (CLEAR); Color Urine YELLOW (YELLOW); Glucose Urine UA NEGATIVE (NEGATIVE); Ketones Urine TRACE mg/dL (NEGATIVE); Leukocyte Esterase Urine NEGATIVE (NEGATIVE); Nitrite Urine NEGATIVE (NEGATIVE); Protein Urine NEGATIVE (NEG/TRACE); Specific Gravity Urine >=1.030 (1.005-1.025)
[2023-07-15 21:37] LABS: Urine Microscopic Indicated YES
[2023-07-15 21:41] LABS: Amorphous Sediment Urine MANY; Bacteria Urine TRACE #/HPF (NONE SEEN); Calcium Oxalate Crystals Urine MANY; Crystals Seen? Seen #/HPF (None Seen); Mucus Urine LARGE (NONE SEEN); Squamous Epithelial Cell Urine MANY #/LPF (NONE/RARE)
[2023-07-15] MEDS: ACETAMINOPHEN 500 MG TABLET 1000 MG PO (21:42)
[2023-07-15 21:43] LABS: Cast Seen? NONE SEEN #/LPF (NONE SEEN); Urine Culture Indicated YES
[2023-07-15 21:59] VITALS: BP 125/64
[2023-07-16] MEDS: CEPHALEXIN 500 MG CAPSULE PO (01:06)
== END 2023-07-16 01:17 | disposition home or self-care (01) ==
PROVIDERS: Physician Assistant; Emergency Provider Internal Medicine
DX: O23.42 Unspecified infection of urinary tract in pregnancy, second trimester (principal); N39.0 Urinary tract infection, site not specified; O26.892 Other specified pregnancy related conditions, second trimester; R10.9 Unspecified abdominal pain; Z3A.19 19 weeks gestation of pregnancy
CPT/HCPCS: 76815; 76817; 81001; 87086; 99284

== ENCOUNTER 2023-07-31 10:43 | Outpatient (OUT) | payer OTHER, SELFPAY ==
--- NOTE | 2023-07-31 10:47 | US_ITS ---
[address] [address] Patient Name: TEE DESAI MRN: [id number] date: 2000 Sex: F Assigned Patient Location: [facility] Current Patient Location: [facility] Accession/Order Number: [id number] Exam Date: 07/31/2023 10:47 Report Date: 07/31/2023 12:29 At the request of: ELSI LOZANO Procedure: US OB anatomy EXAMINATION: US OB anatomy, US OB cervical length HISTORY: ANATOMY COMPARISON: Ultrasound OB placenta and cervical length 07/15/2023 TECHNIQUE: Transabdominal sonographic examination was performed for obstetrical and evaluation. FINDINGS: Number: 1 Heart Rate: 141.0 bpm H.B. /min Amniotic Fluid Volume: Subjectively normal Placental Location: Anterior with lower margin 3.8 cm from os. Cervix Length: 4.7 cm, closed. ANATOMY: Normal Structures -cerebellum, choroid plexus, cisterna magna, lateral cerebral ventricles, orbits, midline falx, stomach, kidneys, bladder, umbilical cord insertion into abdomen, right upper extremity, left upper extremity, right lower extremity, left lower extremity. SUBOPTIMALLY SEEN: Hard palate, four-chamber heart, cardiac outflow tracts, three-vessel cord, spine ABNORMALITIES: None BIOMETRY: BPD: 4.1 cm 18 weeks 3 days ; < 3% HC: 17.6 cm 20 weeks 0 days; 9% AC: 16.9 cm 22 weeks 0 days; 73% FL: 3.6 cm 21 weeks 3 days ; 57% EFW:421.1 grams; 67% FL/AC: 21.3 FL/BPD: 88.5 HC/AC: 1.0 GESTATIONAL AGE: Age by EDC: 21 weeks 0 days MONIQUE by EDC: 12/11/2023 Age by current US: 20 weeks 3 days MONIQUE by current US: 12/15/2023 US/US OB anatomy IMPRESSION: 1. Single live intrauterine with growth detailed above. 2. Suboptimal visualization of the hard palate, four-chamber heart, cardiac outflow tracts, three-vessel cord, and spine due to maternal body habitus and position. Electronically authenticated by: ANGELA SCOTT Date: 07/31/2023 12:29
--- NOTE | 2023-07-31 10:47 | US_ITS ---
[address] [address] Patient Name: TEE DESAI MRN: [id number] date: 2000 Sex: F Assigned Patient Location: [facility] Current Patient Location: [facility] Accession/Order Number: [id number] Exam Date: 07/31/2023 10:47 Report Date: 07/31/2023 12:29 At the request of: ELSI LOZANO Procedure: US OB cervical length EXAMINATION: US OB anatomy, US OB cervical length HISTORY: ANATOMY COMPARISON: Ultrasound OB placenta and cervical length 07/15/2023 TECHNIQUE: Transabdominal sonographic examination was performed for obstetrical and evaluation. FINDINGS: Number: 1 Heart Rate: 141.0 bpm H.B. /min Amniotic Fluid Volume: Subjectively normal Placental Location: Anterior with lower margin 3.8 cm from os. Cervix Length: 4.7 cm, closed. ANATOMY: Normal Structures -cerebellum, choroid plexus, cisterna magna, lateral cerebral ventricles, orbits, midline falx, stomach, kidneys, bladder, umbilical cord insertion into abdomen, right upper extremity, left upper extremity, right lower extremity, left lower extremity. SUBOPTIMALLY SEEN: Hard palate, four-chamber heart, cardiac outflow tracts, three-vessel cord, spine ABNORMALITIES: None BIOMETRY: BPD: 4.1 cm 18 weeks 3 days ; < 3% HC: 17.6 cm 20 weeks 0 days; 9% AC: 16.9 cm 22 weeks 0 days; 73% FL: 3.6 cm 21 weeks 3 days ; 57% EFW:421.1 grams; 67% FL/AC: 21.3 FL/BPD: 88.5 HC/AC: 1.0 GESTATIONAL AGE: Age by EDC: 21 weeks 0 days MONIQUE by EDC: 12/11/2023 Age by current US: 20 weeks 3 days MONIQUE by current US: 12/15/2023 US/US OB cervical length IMPRESSION: 1. Single live intrauterine with growth detailed above. 2. Suboptimal visualization of the hard palate, four-chamber heart, cardiac outflow tracts, three-vessel cord, and spine due to maternal body habitus and position. Electronically authenticated by: ANGELA SCOTT Date: 07/31/2023 12:29
== END 2023-07-31 10:44 | disposition home or self-care (01) ==
LOC: NOMS 10:43
PROVIDERS: Visit Provider Obstetrics & Gynecology
DX: Z36.89 Encounter for other specified antenatal screening (principal)
CPT/HCPCS: 76805; 76817

== ENCOUNTER 2023-08-20 12:22 | Emergency (ER) | payer OTHER, SELFPAY ==
[2023-08-20 12:30] VITALS: BP 144/89; PULSE 99; TEMP 37.1; O2SAT 100; BMI 40.3
--- NOTE | 2023-08-20 12:33 | ED_ITS ---
HPI - Nausea/Vomiting/Diarrhea General Chief complaint: Nausea/Vomiting/Diarrhea Stated complaint: NAUSEA, VOMITING 24 WEEKS Time Seen by Provider: 08/20/23 12:33 History of Present Illness HPI Narrative: This patient is here with ongoing nausea and vomiting. She is just over 24 weeks by dates. She denies any vaginal bleeding. She is not having any fever. She has had Zofran pump with this but recently she has been getting headaches with it. She has not tried anything for the last 48 hours for nausea control. She has never tried Reglan. She has not had a decrease in her urination. There is no smell or odor with urinating and she has no urinary symptomatology. She has no back or flank pain. She has no vaginal bleeding. She is scheduled to have her anatomical ultrasound next week. She has had problems with hyperemesis throughout previous pregnancies as well. Her headache that she has today is not abrupt or explosive in onset and she has no neck pain or neurological symptomatology. Related Data Previous Rx's ?Medication ?Instructions ?Recorded cephalexin 500 mg capsule 500 mg PO Q8H 5 days #15 caps 07/15/23 Allergies Allergy/AdvReac Type Severity Reaction Status Date / Time adhesive tape Allergy Severe Verified 07/15/23 21:13 azithromycin [From Zithromax] Allergy Severe Verified 07/15/23 21:13 metronidazole Allergy Mild Verified 07/15/23 21:15 Exam Narrative Exam Narrative: Awake alert pleasant appear acute ill good historian. Denies any diarrhea just has the nausea. She is hesitant to use any more Zofran because of the side effects she was getting with the pump including a headache. Her mucous membranes are moist and pink there is no scleral icterus or jaundice. Vital sign noted and are essentially normal. She is not having any abdominal cramping or bleeding or discomfort. Her skin indicating integument did not show any petechia purpura rash or other exanthem. Neurological cognition and mentation are normal. She does not appear to have severe headache she has no photosensitivity or nuchal rigidity. MDM - Nausea/Vomiting/Diarrhea MDM Narrative Medical decision making narrative: After interviewing the patient and obtaining history I am recommending we try a course of Reglan as well as IV hydration. Routine laboratory testing will be done as well. Fortunately her CBC and chemistries and lack her lites are essentially normal. She responded very well to the Reglan. I suggested that she talk to her WATER PROJECT MANAGER about using it on a regular basis. She is scheduled to have her anatomical ultrasound next week. She wants to go to work today. I did not give her second bottle of IV fluids. Discharge Plan Discharge Stand Alone Forms: Portal Instructions Chief Complaint: Nausea/Vomiting/Diarrhea Clinical Impression: Hyperemesis affecting , antepartum Patient Disposition: Home, Self-Care Time of Disposition Decision: 14:15 Prescriptions / Home Meds: No Action cephalexin 500 mg capsule 500 mg PO Q8H 5 Days Qty: 15 0RF Print Language: Cuban Additional Instructions: Frequent but small sips of clear fluids today. Consult your ELECTRICAL ENGINEERING DRAFTSPERSON doctor for ongoing antiemetic therapy Referrals: Physician,Non-Staff, MD [Primary Care Provider] - 1 week
[2023-08-20] MEDS: ONDANSETRON PF 4 MG/2 ML VIAL IV (13:05)
[2023-08-20] MEDS: 0.9 % SODIUM CHLORIDE 1,000 ML 999 ML IV (13:05)
[2023-08-20 13:11] LABS: Basophils Absolute Auto 0.1 10^3/uL (0.0-0.1); Basophils Percent Auto 0.3 % (0.2-2.0); Eosinophils Percent Auto 0.1 % (0.9-7.0); Hematocrit 36.8 % (36.0-48.0); Hemoglobin 12.1 g/dL (12.0-16.0); Immature Granulocytes Abs Auto 0.12 10^3/uL (0.00-0.03); Immature Granulocytes Pct Auto 0.8 % (0.0-0.5); Lymphocytes Absolute Auto 2.7 10^3/uL (1.2-3.8); Lymphocytes Percent Auto 18.4 % (20.5-60.0); Mean Corpuscular HGB Conc 32.9 g/dL (29.9-35.2); Mean Corpuscular Hemoglobin 28.5 pg (26.7-34.0); Mean Corpuscular Volume 86.8 fL (81.0-99.0); Monocytes Absolute Auto 0.9 10^3/uL (0.3-0.8); Monocytes Percent Auto 6.4 % (1.7-12.0); Neutrophils Absolute Auto 10.7 10^3/uL (1.4-6.5); Platelet Count 381 10^3/uL (150-450); Red Blood Count 4.24 10^6/uL (4.20-5.40); Red Cell Distribution Width 13.2 % (11.0-15.0); White Blood Count 14.5 10^3/uL (4.0-11.0)
[2023-08-20 13:18] LABS: Bilirubin Urine NEGATIVE (NEGATIVE); Blood Urine NEGATIVE (NEGATIVE); Clarity Urine CLEAR (CLEAR); Color Urine LT. YELLOW (YELLOW); Glucose Urine UA NEGATIVE (NEGATIVE); Ketones Urine NEGATIVE (NEGATIVE); Leukocyte Esterase Urine NEGATIVE (NEGATIVE); Nitrite Urine NEGATIVE (NEGATIVE); Protein Urine NEGATIVE (NEG/TRACE)
[2023-08-20 13:24] LABS: Alanine Aminotransferase 13 U/L (14-59); Albumin Globulin Ratio 0.7; Albumin Level 2.7 g/dL (3.4-5.0); Alkaline Phosphatase 79 U/L (46-116); Anion Gap 13.5; Aspartate Amino Transferase 7 U/L (15-37); BUN Creatinine Ratio 11.3; Bilirubin Total 0.3 mg/dL (0.2-1.0); Calcium 8.9 mg/dL (8.5-10.1); Carbon Dioxide 24.2 mmol/L (21.0-32.0); Chloride 104 mmol/L (98-107); Estimated GFR (African America >60 (>=60); Estimated GFR (Non-African Ame >60 (>=60); Globulin 4.1 g/dL; Glucose 87 mg/dL (74-106); Potassium 3.7 mmol/L (3.5-5.1); Sodium 138 mmol/L (136-145); Total Protein 6.8 g/dL (6.4-8.2)
[2023-08-20 13:39] LABS: Urine Microscopic Indicated NO
[2023-08-20] MEDS: METOCLOPRAMIDE HCL 10 MG/2 ML VIAL IVP (13:44)
== END 2023-08-20 14:23 | disposition home or self-care (01) ==
PROVIDERS: Emergency Provider Emergency Medicine Emergency Medical Services
DX: O21.2 Late vomiting of pregnancy (principal); Z3A.24 24 weeks gestation of pregnancy
CPT/HCPCS: 36415; 80053; 81003; 83690; 85025; 96361; 96374; 96375; 99284

== ENCOUNTER 2023-08-21 10:44 | Outpatient (OUT) | payer OTHER, SELFPAY ==
[2023-08-21 11:04] VITALS: BP 123/76; PULSE 82
== END 2023-08-21 11:32 | disposition home or self-care (01) ==
LOC: FBCO 10:45 → FBC 10:47
PROVIDERS: Visit Provider Obstetrics & Gynecology
DX: O36.8120 Decreased fetal movements, second trimester, not applicable or unspecified (principal)
CPT/HCPCS: 59025

== ENCOUNTER 2023-08-27 14:20 | Outpatient (OUT) | payer OTHER, SELFPAY ==
[2023-08-27 15:49] LABS: Basophils Absolute Auto 0.1 10^3/uL (0.0-0.1); Basophils Percent Auto 0.4 % (0.2-2.0); Eosinophils Absolute Auto 0.1 10^3/uL (0.0-0.7); Eosinophils Percent Auto 0.5 % (0.9-7.0); Hematocrit 39.9 % (36.0-48.0); Hemoglobin 13.2 g/dL (12.0-16.0); Immature Granulocytes Abs Auto 0.15 10^3/uL (0.00-0.03); Immature Granulocytes Pct Auto 1.2 % (0.0-0.5); Lymphocytes Absolute Auto 3.1 10^3/uL (1.2-3.8); Lymphocytes Percent Auto 23.6 % (20.5-60.0); Mean Corpuscular HGB Conc 33.1 g/dL (29.9-35.2); Mean Corpuscular Hemoglobin 28.8 pg (26.7-34.0); Mean Corpuscular Volume 86.9 fL (81.0-99.0); Mean Platelet Volume 10.3 fL (9.5-13.5); Monocytes Absolute Auto 0.8 10^3/uL (0.3-0.8); Monocytes Percent Auto 6.4 % (1.7-12.0); Neutrophils Absolute Auto 8.9 10^3/uL (1.4-6.5); Neutrophils Percent Auto 67.9 % (43.0-75.0); Platelet Count 274 10^3/uL (150-450); Red Blood Count 4.59 10^6/uL (4.20-5.40); Red Cell Distribution Width 13.1 % (11.0-15.0)
[2023-08-27 16:31] LABS: Glucose 1 Hour 93 mg/dL (<130)
== END 2023-08-27 14:21 | disposition home or self-care (01) ==
LOC: LAB 14:21
PROVIDERS: Visit Provider Obstetrics & Gynecology
DX: Z13.1 Encounter for screening for diabetes mellitus (principal)
CPT/HCPCS: 36415; 82950; 85025

== ENCOUNTER 2023-08-28 08:30 | Outpatient (OUT) | payer OTHER, SELFPAY ==
--- NOTE | 2023-08-28 08:33 | US_ITS ---
[address] [address] Patient Name: TEE DESAI MRN: [id number] date: 2000 Sex: F Assigned Patient Location: [facility] Current Patient Location: [facility] Accession/Order Number: [id number] Exam Date: 08/28/2023 08:34 Report Date: 08/28/2023 10:11 At the request of: ELSI LOZANO Procedure: US OB follow up EXAMINATION: US OB follow up HISTORY: INCOMPLETE ANATOMY COMPARISON: 07/31/2023 FINDINGS: position: Cephalic presentation, longitudinal lie Heart rate: 144 bpm Normal observed anatomy: Four-chamber heart, RVOT, LVOT, hard palate, three-vessel cord Suboptimal visualization: Grossly normal spine, Limited visualization secondary to maternal body habitus Clinical age: 25 weeks 0 days Clinical MONIQUE: 12/11/2023 US/US OB follow up IMPRESSION: Normal observed anatomy Electronically authenticated by: CHRISTIAN KATE Date: 08/28/2023 10:11
== END 2023-08-28 08:31 | disposition home or self-care (01) ==
LOC: NOMS 08:31
PROVIDERS: Visit Provider Obstetrics & Gynecology
DX: Z36.2 Encounter for other antenatal screening follow-up (principal); Z3A.25 25 weeks gestation of pregnancy
CPT/HCPCS: 76816

== ENCOUNTER 2023-09-10 12:17 | Observation (INO) | payer OTHER, SELFPAY ==
[2023-09-10 12:35] VITALS: BP 116/74; PULSE 100
[2023-09-10 13:22] LABS: Bilirubin Urine NEGATIVE (NEGATIVE); Blood Urine TRACE-I (NEGATIVE); Clarity Urine CLEAR (CLEAR); Color Urine YELLOW (YELLOW); Glucose Urine UA NEGATIVE (NEGATIVE); Ketones Urine NEGATIVE (NEGATIVE); Leukocyte Esterase Urine NEGATIVE (NEGATIVE); Nitrite Urine NEGATIVE (NEGATIVE); Protein Urine NEGATIVE (NEG/TRACE); Specific Gravity Urine 1.025 (1.005-1.025)
[2023-09-10 13:25] LABS: Urine Microscopic Indicated YES
[2023-09-10 13:34] LABS: Bacteria Urine NONE SEEN #/HPF (NONE SEEN); Cast Seen? NONE SEEN #/LPF (NONE SEEN); Crystals Seen? None Seen #/HPF (None Seen); Mucus Urine NONE SEEN (NONE SEEN); RBC Urine 0-2 #/HPF (0-2); Squamous Epithelial Cell Urine NONE SEEN #/LPF (NONE/RARE); WBC Urine NONE SEEN #/HPF (NONE SEEN)
--- NOTE | 2023-09-10 13:53 | US_ITS ---
[address] [address] Patient Name: TEE DESAI MRN: [id number] date: 2000 Sex: F Assigned Patient Location: [facility] Current Patient Location: [facility] Accession/Order Number: [id number] Exam Date: 09/10/2023 13:54 Report Date: 09/10/2023 15:16 At the request of: ELSI LOZANO Procedure: US OB cervical length EXAMINATION: US OB cervical length HISTORY: abdominal pain COMPARISON: Ultrasound OB anatomy 07/31/2023 TECHNIQUE: Transabdominal and transvaginal sonographic examination for cervical length. FINDINGS: CERVIX LENGTH: 3.6 cm, closed. POSITION: Cephalic HEART RATE: 141 bpm AMNIOTIC FLUID: Subjectively normal Age by EDC: 26 weeks 6 days MONIQUE by EDC: 12/11/2023 US/US OB cervical length IMPRESSION: 1. Single live intrauterine . 2. Closed cervix 3.6 cm in length. Electronically authenticated by: ANGELA SCOTT Date: 09/10/2023 15:16
== END 2023-09-10 14:40 | disposition home or self-care (01) ==
LOC: FBC 12:19
PROVIDERS: Admitting Provider Obstetrics & Gynecology; Visit Provider Obstetrics & Gynecology
DX: O26.892 Other specified pregnancy related conditions, second trimester (principal); R10.9 Unspecified abdominal pain; Z3A.26 26 weeks gestation of pregnancy
CPT/HCPCS: 59025; 76817; 81001; G0378; G0379

== ENCOUNTER 2023-10-01 10:39 | Outpatient (OUT) | payer OTHER, SELFPAY ==
--- NOTE | 2023-10-01 10:41 | US_ITS ---
[address] [address] Patient Name: TEE DESAI MRN: [id number] date: 2000 Sex: F Assigned Patient Location: [facility] Current Patient Location: [facility] Accession/Order Number: [id number] Exam Date: 10/01/2023 10:42 Report Date: 10/01/2023 11:17 At the request of: ELSI LOZANO Procedure: US OB growth EXAMINATION: US OB growth HISTORY: SIZE INCONSISTENT WITH DATES COMPARISON: No relevant comparison available. FINDINGS: Heart Rate: 146 bpm Amniotic Fluid Volume: 12.6 cm. Largest fluid pocket 4.1 cm Number: 1 Position: Cephalic presentation, longitudinal lie BIOMETRY: BPD: 7.57 cm cm; 30 weeks 3 days; 54.20 %% HC: 27.96 cm cm; 30 weeks 4 days; 36.10 %% AC: 25.35 cm cm; 29 weeks 4 days; 34.80 %% FL: 5.68 cm cm; 29 weeks 6 days; 33.50 %% EFW: 1464.72 g; 3 lbs. 3 oz. 34.50 % FL/AC: 22.41 FL/BPD: 75.03 HC/AC: 1.10 GESTATIONAL AGE: Age by EDC: 29 weeks 6 days MONIQUE by EDC: 2023-12-11 Age by US: 30 weeks 1 day MONIQUE by US: 2023-12-09 US/US OB growth IMPRESSION: Normal interval growth Electronically authenticated by: CHRISTIAN KATE Date: 10/01/2023 11:17
--- OUTSIDE RECORDS SUMMARY | 2023-10-01 10:58 | XMS_ITS | CCD ---
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 Unava ilable KARASIK ., DR ALEXANDRE Consulting Unavailabl e LAVINIA, DR CHRISTIAN Doyle Consulting Unavailable KARASIK ., DR ALEXANDRE Consulting Unavailabl e KARASIK ., DR ALEXANDRE Attending Unavailabl e [facility] Unava ilable KARASIK ., DR ALEXANDRE Admitting Unavailabl e ANGELA SCOTT Consulting Unavailable DINA, DR ANA Dennis Attending Unavailable DINA, DR ANA Dennis Admitting [facility] Unava ilable DINA, DR ANA Dennis Consulting Unavailable KILO ., MR CUADRA Consulting Unavailable KARASIK ., DR ALEXANDRE Attending Unavailabl e [facility] Unava ilable KARASIK ., DR ALEXANDRE Admitting Unavailabl e KARASIK ., DR ALEXANDRE Attending Unavailabl e [facility] Unava ilable KARASIK ., DR ALEXANDRE Admitting Unavailabl e KARASIK ., DR ALEXANDRE Consulting Unavailabl e JOANNE HUDSON Consulting Unavailable GAVIN ATKINS Consulting Unavailable [facility] Unava ilable KARASIK ., DR ALEXANDRE Attending Unavailabl e KARASIK ., DR ALEXANDER Admitting Unavailabl e KARASIK ., DR ALEXANDRE Consulting Unavailabl e KARASIK ., DR ALEXANDRE Attending Unavailabl e KARASIK ., DR ALEXANDRE Admitting Unavailabl e KARASIK ., DR ALEXANDRE Consulting Unavailabl e KARASIK ., DR ALEXANDRE Attending Unavailabl e KARASIK ., DR ALEXANDRE Admitting Unavailabl e WEST, DR CHRISTIAN Doyle Consulting Unavailable KARASIK ., DR ALEXANDRE Attending Unavailabl e [facility] Primary Care Unava ilable KARASIK ., DR ALEXANDRE Admitting Unavailabl e KARASIK ., DR ALEXANDRE Consulting Unavailabl e ZIEBER, ANGELA Dennis Consulting Unavailable KARASIK ., DR ALEXANDRE Attending Unavailabl e KARASIK ., DR ALEXANDRE Admitting Unavailabl e [facility] Primary Care Unava ilable KARASIK ., DR ALEXANDRE Consulting Unavailabl e KARASIK ., DR ALEXANDRE Consulting Unavailabl e KARASIK ., DR ALEXANDRE Attending Unavailabl e [facility] Primary [facility] Unava ilable KARASIK ., DR ALEXANDRE Admitting Unavailabl e WEST, DR CHRISTIAN Doyle Consulting Unavailable REQUEST, DR AMBER LISTED Consulting [facility] Primary Care Provider Unavailable Primary Care Provider UnavailOneil Mendez Admitting Unavaila ble Oneil Salomon Attending Unavaila ble ROBERT MARRERO R Primary Care Unavailable Martin PACErrol Attending Unavailable Mario PACErrol Admitting Unavailable DORA JASSO Admitting Unavailable DORA JASSO Attending Unavailable Alaina Matta CNM Attending Unavailable Provider, None Primary Care Unavailable Alaina Matta CNM Admitting Unavailable Adamaris Jaeger PA-C Attending Unavailable Provider, None Primary Care Unavailable Adamaris Jaeger PA-C Admitting Unavailable Yassine Maldonado Admitting Unavailable Yassine Maldonado Attending Unavailable JANES, ROBERT R Primary Care Unavailable Mamie Moore Admitting Unavailab Mamie Menchaca Attending Unavailab chema MARRERO, ROBERT R Primary Care Unavailable Yassine Maldonado Admitting Unavailable Yassine Maldonado Attending Unavailable JANES, ROBERT R Primary Care Unavailable Tom Smith Admitting Unavailab Tom Canas Attending Unavailab le Provider, Unlisted Primary Care Unavailable Provider, None Primary Care Unavailable Anusha Palomo Admitting Unavailable Anusha Palomo Attending Unavailable Provider, None Primary Care Unavailable Nelson Sharma Admitting Unavailable Sharma, Nelson Attending Unavailable SERVICES, [facility] Unava ilable KENDRA EDWARDS Attending Unavailable SERVICES, [facility] Unava ilable SYMONE LOZOYA Attending Unavailable RAUL HAMMOND Admitting Unavailable RAUL HAMMOND Attending Unavailable SERVICES, [facility] Unava ilable SERVICES, [facility] Unava ilable FRIES, ZEKE S Admitting Unavailable FRIES, ZEKE S Attending Unavailable SERVICES, [facility] Unava ilable JANES, ROBERT Attending Unavailable JANES, ROBERT Attending Unavailable DAPHNIE CR Attending Unavailable JANES, ROBERT Attending Unavailable JANES, ROBERT Attending Unavailable JANES, ROBERT Attending Unavailable Allergies Allergy Classification Reported Allergen(s) Allergy Type Date of Onset Reaction(s) Facility (1 source) [facility] Repository (2 sources) Azithromycin; Translations: [AZITHROMYCIN] Drug Allergy 2 [facility] Repository (5 sources) Adhesive agent; Translations: [ADHESIVE] Propensity to adverse reactions to drug 3 [facility] (6 sources) Azithromycin Drug Allergy 2 [facility] (2 sources) Macrolides And Ketolides Drug Allergy 4 Unknown [facility] (2 sources) Wound Dressing Adhesive Drug Allergy 4 [facility] (1 source) Adhesive bandage; Translations: [Adhesive Bandage] Propensity to adverse reactions (disorder) [facility] Repository (1 source) Azithromycin; Translations: [Zithromax] Drug Allergy [facility] Repository (1 source) metroNIDAZOLE; Translations: [METRONIDAZOLE] [facility] Medications Current Medications Medication Drug Class(es) Dates Sig (Normalized) Sig (Original) [id number] 200 actuat albuterol 0.09 mg/actuat metered dose [...] Classification Problem Date Documented Da te Episodic/Chronic Abdominal pain (5 sources) Pelvic and perineal pain; Translations: [Pain in pelvis] Onset: 10-17-2021 Episodic Menstrual disorders (3 sources) Irregular menstruation, unspecified; Translations: [IRREGULAR MENSTRUATION UNSPECIFIED] Onset: 08-08-2022 Chronic Nausea and vomiting (1 source) Nausea Onset: 09-04-2023 Episodic Other complications of ; puerperium affecting management of mother (4 sources) Retained portions of placenta and membranes, without hemorrhage; Translations: [RETAIN PORTION PLCNTA MEMB NO HEMOR] Onset: 06-02-2022 Episodic Other complications of (5 sources) Missed ; Translations: [MISSED ] Onset: 05-17-2022 Episodic Other complications of (5 sources) Mild hyperemesis gravidarum; Translations: [MILD HYPEREMESIS GRAVIDARUM] Onset: 04-02-2022 Episodic Other complications of (1 source) Nausea and vomiting; Translations: [Vomiting of , unspecified] 04-05-2023 Episodic Other complications of (1 source) Vomiting of , unspecified; Translations: [Vomiting of , unspecified] Onset: 07-30-2023 Episodic Other and delivery including normal (7 [...] of right knee, initial encounter] 05-15-2021 Episodic Unclassified (1 source) Vomiting During Onset: 07-05-2023 Unclassified (1 source) Vomiting - 17wks Onset: 07-05-2023 Past or Other Problems Problem Classification Problem Date Documented Date Episodic/Chronic Esophageal disorders (1 source) Gastro-esophageal laceration-hemorrhag e syndrome; Translations: [GASTRO-ESOPHAGEAL LAC-HEMORR SYND] Onset: 04-04-2022 Episodic Immunizations and screening for infectious disease (1 source) Contact with and (suspected) exposure to infections with a predominantly sexual mode of transmission; Translations: [CONTCT W EXPOS INFECT SEXUAL TRNSMS] Onset: 04-26-2022 Episodic Other complications of (1 source) Diseases [...] Test Name Value Interpretation Reference Range Facility URINALYSISon 09-04-2023 Bilirubin Ql (U) Negative Normal NEG [facility] Comment on above: Performed By: #### C HILLARY CANCINO, 3040-3 #### [facility] ([id number]) [address] [place] [address] 25173 BLOOD/HGB Negative Normal NEG [facility] Comment on above: Performed By: #### Shakeel CANCINO CMP, 3040-3 #### [facility] ([id number]) [address] [place] [address] 62777 Color (U) YELLOW Normal YELLOW [facility] Comment on above: Performed By: #### Shakeel CANCINO CMP, 3040-3 #### [facility] ([id number]) [address] [place] [address] 09141 Glucose Ql (U) Negative Normal NEG [facility] Comment on above: Performed By: #### Shakeel CANCINO CMP, 3039-3 #### [facility] ([id number]) [address] [place] [address] 02927 Ketones Ql (U) Negative Normal NEG [facility] Comment on above: Performed By: #### Shakeel CANCINO CMP, 3039-3 #### [facility] ([id number]) [address] [place] [address] 29254 Leukocyte esterase Test strip Ql (U) Trace Abnormal NEG [facility] Comment on above: Performed By: #### Shakeel CANCINO CMP, 3039-06 #### [facility] ([id number]) [address] [place] [address] 50023 Nitrite Ql (U) Negative Normal NEG [facility] Comment on above: Performed By: #### Shakeel CANCINO CMP, 3039-3 #### [facility] ([id number]) [address] [place] [address] 06325 pH (U) 6.5 [pH] Normal 5.0-8.5 [facility] Comment on above: Performed By: #### Shakeel CANCINO CMP, 3039-06 #### [facility] ([id number]) [address] [place] [address] 28644 Protein Ql (U) Negative Normal NEG [facility] Comment on above: Performed By: #### Shakeel CANCINO CMP, 3039-3 #### [facility] ([id number]) [address] [place] [address] 49669 R.B.CELLS 0 /hpf Normal 0-5 [facility] Comment on above: Performed By: #### Shakeel CANCINO CMP, 3039-3 #### [facility] ([id number]) [address] [place] [address] [place] [address] Specific gravity (U) [Rel density] 1.020 Normal 1.003-1.035 [facility] Comment on above: Performed By: #### Shakeel CANCINO CMP, 3040-3 #### [facility] ([id number]) [address] [place] [address] 61307 SQUAMOUS EPITHELIUM 5 /hpf Normal 0-5 [facility] Comment on above: Performed By: #### C BARAK, [facility], 0-3 #### [facility] ([id number]) [address] [place] [address] 34167 TURBIDITY HAZY Abnormal CLEAR [facility] Comment on above: Performed By: #### Shakeel CANCINO [facility], 0-3 #### [facility] ([id number]) [address] [place] [address] 79725 Urobilinogen Qn (U) 1.0 {Pepito'U}/dL Normal <1.1 [facility] Comment on above: Performed By: #### Shakeel CANCINO [facility], 3039-3 #### [facility] ([id number]) [address] [place] [address] 25297 W.B.CELLS 2 /hpf Normal 0-5 [facility] Comment on above: Performed By: #### Shakeel CANCINO [facility], 304-3 #### [facility] ([id number]) [address] [place] [address] 47587 COMPLETE BLOOD COUNTon 07-29 Erythrocyte distribution width (RBC) [Ratio] 13.5 % Normal 11.5-15.0 [facility] Comment on above: Performed By: #### C BC, CMP #### [facility] ([id number]) [address] [place] [address] 75129 Hematocrit (Bld) [Volume fraction] 32.1 % Low 35-47 [facility] Comment on above: Performed By: #### C BC, CMP #### [facility] ([id number]) [address] [place] [address] 09744 Hemoglobin (Bld) [Mass/Vol] 11.0 g/dL Low 11.7-15.5 [facility] Comment on above: Performed By: #### C BC, CMP #### [facility] ([id number]) [address] [place] [address] 46114 MCH (RBC) [Entitic mass] 28.8 pg Normal 27-34 [facility] Comment on above: Performed By: #### C BC, CMP #### [facility] ([id number]) [address] [place] [address] 58124 MCHC (RBC) [Mass/Vol] 34.3 g/dL Normal 32-36 [facility] Comment on above: Performed By: #### C BC, CMP #### [facility] ([id number]) [address] [place] [address] 70543 MCV (RBC) [Entitic vol] 84 fL Normal 80-100 [facility] Comment on above: Performed By: #### C BC, CMP #### [facility] ([id number]) [address] [place] [address] 37258 Platelet mean volume (Bld) [Entitic vol] 8.9 fL Normal 7-12 [facility] Comment on above: Performed By: #### C BC, CMP #### [facility] ([id number]) [address] [place] [address] 80194 Platelets (Bld) [#/Vol] 354 10*3/uL Normal 150-450 [facility] Comment on above: Performed By: #### C BC, CMP #### [facility] ([id number]) [address] [place] [address] 64375 RBC COUNT 3.82 X10E12/L Normal 3.80-5.20 [facility] Comment on above: Performed By: #### C BC, CMP #### [facility] ([id number]) [address] [place] [address] 26846 WBC (Bld) [#/Vol] 12.0 10*3/uL High 4.0-11.0 [facility] Comment on above: Performed By: #### C BC, CMP #### [facility] ([id number]) [address] [place] [address] 87258 COMPREHENSIVE METABOLIC PANE Alex 07-30-2023 Albumin [Mass/Vol] 3.0 g/dL Low 3.2-5.3 [facility] Comment on above: Performed By: #### C BC, CMP #### [facility] ([id number]) [address] [place] [address] 34564 ALP [Catalytic activity/Vol] 67 U/L Normal 39-130 [facility] Comment on above: Performed By: #### C BC, CMP #### [facility] ([id number]) [address] [place] [address] 32847 ALT [Catalytic activity/Vol] 10 U/L Normal 0-31 [facility] Comment on above: Performed By: #### C BC, CMP #### [facility] ([id number]) [address] [place] [address] 63643 Anion gap [Moles/Vol] 7 mmol/L Normal 5-15 [facility] Comment on above: Performed By: #### C BC, CMP #### [facility] ([id number]) [address] [place] [address] 56410 AST [Catalytic activity/Vol] 12 U/L Normal 0-41 [facility] Comment on above: Performed By: #### C BC, CMP #### [facility] ([id number]) [address] [place] [address] 29295 Bilirubin [Mass/Vol] 0.5 mg/dL Normal 0.3-1.2 [facility] Comment on above: Performed By: #### C BC, CMP #### [facility] ([id number]) [address] [place] [address] 75760 Calcium [Mass/Vol] 8.1 mg/dL Low 8.5-10.5 [facility] Comment on above: Performed By: #### C BC, CMP #### [facility] ([id number]) [address] [place] [address] 46986 Chloride [Moles/Vol] 108 mmol/L Normal 98-109 [facility] Comment on above: Performed By: #### C BC, CMP #### [facility] ([id number]) [address] [place] [address] 97131 CO2 [Moles/Vol] 19 mmol/L Low 22-32 [facility] Comment on above: Performed By: #### C JASMIN, CMP #### [facility] ([id number]) [address] [place] [address] 28702 Creatinine [Mass/Vol] 0.52 mg/dL Normal 0.40-1.00 [facility] Comment on above: Result Comment: METH OD TRACEABLE TO IDMS STANDARD Performed By: #### C JASMIN, CMP #### [facility] ([id number]) [address] [place] [address] 50259 eGFR (CKD-EPI) NON-RACE DEPENDENT >90 Normal >59 [facility] Comment on above: Result Comment: Reported eGFR is based on the CKD-EPI 2021 equation that does not use a race coefficient. Performed By: #### C BC, CMP #### [facility] ([id number]) [address] [place] [address] 57859 Glucose [Mass/Vol] 79 mg/dL Normal 65-99 [facility] Comment on above: Performed By: #### C BC, CMP #### [facility] ([id number]) [address] [place] [address] 38373 Potassium [Moles/Vol] 3.9 mmol/L Normal 3.5-5.0 [facility] Comment on above: Performed By: #### C JASMIN, CMP #### [facility] ([id number]) [address] [place] [address] 68089 Protein [Mass/Vol] 6.1 g/dL Normal 6.0-8.0 [facility] Comment on above: Performed By: #### C JASMIN, CMP #### [facility] ([id number]) [address] [place] [address] 52548 Sodium [Moles/Vol] 134 mmol/L Normal 134-146 [facility] Comment on above: Performed By: #### C JASMIN, CMP #### [facility] ([id number]) [address] [place] [address] 55572 Urea nitrogen [Mass/Vol] 6 mg/dL Normal 5-23 [facility] Comment on above: Performed By: #### C JASMIN, CMP #### [facility] ([id number]) [address] [place] [address] 47048 DRUG SCREEN, URINEon 024 AMPHETAMINE/METHAMP Negative Normal NEG [facility] Comment on above: Result Comment: AMPH /METH screening cut off = 1000 ng/mL Performed By: #### D FLOWER #### [facility] ([id number]) [address] [place] [address] [place] [address] BARBITURATES Negative Normal NEG [facility] Comment on above: Result Comment: Deirdre iturates screening cut off value = 200 ng/mL Performed By: #### D FLOWER #### [facility] ([id number]) [address] [place] [address] [place] [address] BENZODIAZEPINES Negative Normal NEG [facility] Comment on above: Result Comment: Vinny odiazepines screening cut off value = 200 ng/mL Performed By: #### D FLOWER #### [facility] ([id number]) [address] [place] [address] 82658 CANNABINOIDS Negative Normal NEG [facility] Comment on above: Result Comment: Lavern abinoids/THC screening cut off value = 50 ng/mL Performed By: #### D FLOWER #### [facility] ([id number]) [address] [place] [address] 17999 COCAINE METABOLITE Negative Normal NEG [facility] Comment on above: Result Comment: Coca ine screening cut off value = 300 ng/mL Performed By: #### D FLOWER #### [facility] ([id number]) [address] [place] [address] [address] [facility] Comment on above: Result Comment: Ecst asy screening cut off value = 500 ng/mL This report is intended for use in clinical monitoring or management of patients. Performed By: #### D FLOWER #### [facility] ([id number]) [address] [place] [address] 41566 METHADONE Negative [facility] Comment on above: Result Comment: Meth adone screening cut off value = 300 ng/mL. Performed By: #### D FLOWER #### [facility] ([id number]) [address] [place] [address] [address] [facility] Comment on above: Result Comment: Opia bernadette screening cut off value = 300 ng/mL NOTE: This test is used for the detection of codeine, hydrocodone (>1000 ng/mL), morphine and hydromorphone (>900 ng/mL) in urine. Performed By: #### D FLOWER #### [facility] ([id number]) [address] [place] [address] [place] [address] OXYCODONE Negative Normal NEG [facility] Comment on above: Result Comment: Oxyc odone screening cut off value = 300 ng/mL NOTE: This test is used for the detection of oxycodone and oxymorphone in urine. Performed By: #### D FLOWER #### [facility] ([id number]) [address] [place] [address] [place] [address] PHENCYCLIDINE Negative Normal NEG [facility] Comment on above: Result Comment: Phen cyclidine screening cut off value = 25 ng/mL Performed By: #### D FLOWER #### [facility] ([id number]) [address] [place] [address] [place] [address] URINALYSISon 07-30-2023 Bilirubin Ql (U) Negative Normal NEG [facility] Comment on above: Performed By: #### C HILLARY CANCINO, 3040-3 #### [facility] ([id number]) [address] [place] [address] [place] [address] BLOOD/HGB Negative Normal NEG [facility] Comment on above: Performed By: #### Shakeel CANCINO CMP, 0-3 #### [facility] ([id number]) [address] [place] [address] [place] [address] Color (U) YELLOW Normal YELLOW [facility] Comment on above: Performed By: #### Shakeel CANCINO CMP, 0-3 #### [facility] ([id number]) [address] [place] [address] [place] [address] Glucose Ql (U) Negative Normal NEG [facility] Comment on above: Performed By: #### C HILLARY CANCINO, 0-3 #### [facility] ([id number]) [address] [place] [address] [place] [address] Ketones Ql (U) Negative Normal NEG [facility] Comment on above: Performed By: #### Shakeel CANCINO CMP, 0-3 #### [facility] ([id number]) [address] [place] [address] [place] [address] Leukocyte esterase Test strip Ql (U) Negative Normal NEG [facility] Comment on above: Performed By: #### C BARAK CMP, 3039-3 #### [facility] ([id number]) [address] [place] [address] 63576 Nitrite Ql (U) Negative Normal NEG [facility] Comment on above: Performed By: #### C BARAK CMP, 3039-3 #### [facility] ([id number]) [address] [place] [address] 57874 pH (U) 7.0 [pH] Normal 5.0-8.5 [facility] Comment on above: Performed By: #### Shakeel CANCINO CMP, 3039-3 #### [facility] ([id number]) [address] [place] [address] 75053 Protein Ql (U) Negative Normal NEG [facility] Comment on above: Performed By: #### Shakeel CANCINO CMP, 3039-3 #### [facility] ([id number]) [address] [place] [address] 91761 R.B.CELLS 0 to 1 Normal 0-5 [facility] Comment on above: Performed By: #### Shakeel CANCINO CMP, 3 #### [facility] ([id number]) [address] [place] [address] 47971 Specific gravity (U) [Rel density] 1.020 Normal 1.003-1.035 [facility] Comment on above: Performed By: #### Shakeel CANCION CMP, 3039-3 #### [facility] ([id number]) [address] [place] [address] 80172 SQUAMOUS EPITHELIUM 2 /hpf Normal 0-5 [facility] Comment on above: Performed By: #### Shakeel CANCINO CMP, 3039-3 #### [facility] ([id number]) [address] [place] [address] 08474 TURBIDITY CLOUDY Abnormal CLEAR [facility] Comment on above: Performed By: #### Shakeel CANCINO, CMP, 3039-3 #### [facility] ([id number]) [address] [place] [address] 45466 Urobilinogen Qn (U) 0.2 {Pepito'U}/dL Normal <1.1 [facility] Comment on above: Performed By: #### Shakeel CANCINO, CMP, 3039-3 #### [facility] ([id number]) [address] [place] [address] 23224 W.B.CELLS 1 /hpf Normal 0-5 [facility] Comment on above: Performed By: #### Shakeel CANCINO, CMP, 3039-3 #### [facility] ([id number]) [address] [place] [address] 07427 CBC AND AUTO DIFFon 07-11-19 24 ABSOLUTE BASOPHIL 0.0 X10E9/L Normal 0.0-0.2 [facility] Comment on above: Performed By: #### Shakeel CANCINO, CMP, 3039-3 #### [facility] ([id number]) [address] [place] [address] 83833 ABSOLUTE NEUTROPHIL 9.7 X10E9/L High 1.5-6.6 [facility] Comment on above: Performed By: #### Shakeel CANCINO, CMP, 3039-3 #### [facility] ([id number]) [address] [place] [address] 52924 Basophils/100 WBC (Bld) 0.2 % Normal [facility] Comment on above: Performed By: #### Shakeel BCA, CMP, 3039-3 #### [facility] ([id number]) [address] [place] [address] 23137 Eosinophils (Bld) [#/Vol] 0.1 10*3/uL Normal 0.0-0.4 [facility] Comment on above: Performed By: #### Shakeel BCA, CMP, 3039-3 #### [facility] ([id number]) [address] [place] [address] 28530 Eosinophils/100 WBC (Bld) 0.5 % Normal [facility] Comment on above: Performed By: #### Shakeel CANCINO CMP, 3039-3 #### [facility] ([id number]) [address] [place] [address] 66895 Erythrocyte distribution width (RBC) [Ratio] 13.4 % Normal 11.5-15.0 [facility] Comment on above: Performed By: #### Shakeel CANCINO CMP, 3039-06 #### [facility] ([id number]) [address] [place] [address] 76134 Hematocrit (Bld) [Volume fraction] 37.1 % Normal 35-47 [facility] Comment on above: Performed By: #### Shakeel CANCINO CMP, 3039-06 #### [facility] ([id number]) [address] [place] [address] 63044 Hemoglobin (Bld) [Mass/Vol] 12.6 g/dL Normal 11.7-15.5 [facility] Comment on above: Performed By: #### Shakeel CANCINO CMP, 3039-06 #### [facility] ([id number]) [address] [place] [address] 21702 Lymphocytes (Bld) [#/Vol] 3.1 10*3/uL Normal 1.0-3.5 [facility] Comment on above: Performed By: #### Shakeel CANCINO CMP, 3039-06 #### [facility] ([id number]) [address] [place] [address] 59725 Lymphocytes/100 WBC (Bld) 22.3 % Normal [facility] Comment on above: Performed By: #### Shakeel CANCINO CMP, 3039-06 #### [facility] ([id number]) [address] [place] [address] 23965 MCH (RBC) [Entitic mass] 28.3 pg Normal 27-34 [facility] Comment on above: Performed By: #### Shakeel CANCINO CMP, 3 #### [facility] ([id number]) [address] [place] [address] 28294 MCHC (RBC) [Mass/Vol] 33.9 g/dL Normal 32-36 [facility] Comment on above: Performed By: #### Shakeel CANCINO CMP, 3039-06 #### [facility] ([id number]) [address] [place] [address] 79698 MCV (RBC) [Entitic vol] 84 fL Normal 80-100 [facility] Comment on above: Performed By: #### Shakeel CANCINO CMP, 3039-06 #### [facility] ([id number]) [address] [place] [address] 17742 Monocytes (Bld) [#/Vol] 1.1 10*3/uL High 0-0.9 [facility] Comment on above: Performed By: #### Shakeel CANCINO CMP, 3039-06 #### [facility] ([id number]) [address] [place] [address] 17224 Monocytes/100 WBC (Bld) 8.0 % Normal [facility] Comment on above: Performed By: #### Shakeel CANCINO CMP, 3039-06 #### [facility] ([id number]) [address] [place] [address] 11726 Neutrophils/100 WBC (Bld) 69.0 % Normal [facility] Comment on above: Performed By: #### Shakeel CANCINO CMP, 3039-06 #### [facility] ([id number]) [address] [place] [address] 95791 Platelet mean volume (Bld) [Entitic vol] 8.3 fL Normal 7-12 [facility] Comment on above: Performed By: #### Shakeel CANCINO, CMP, 0-3 #### [facility] ([id number]) [address] [place] [address] 81534 Platelets (Bld) [#/Vol] 380 10*3/uL Normal 150-450 [facility] Comment on above: Performed By: #### Shakeel BCA, CMP, 3039-3 #### [facility] ([id number]) [address] [place] [address] 99142 RBC COUNT 4.43 X10E12/L Normal 3.80-5.20 [facility] Comment on above: Performed By: #### Shakeel BCA, CMP, 3 #### [facility] ([id number]) [address] [place] [address] 80991 WBC (Bld) [#/Vol] 14.0 10*3/uL High 4.0-11.0 [facility] Comment on above: Performed By: #### Shakeel BCA, CMP, 3 #### [facility] ([id number]) [address] [place] [address] 99913 COMPREHENSIVE METABOLIC PANE Alex 07-11-2023 Albumin [Mass/Vol] 3.4 g/dL Normal 3.2-5.3 [facility] Comment on above: Performed By: #### Shakeel BCA, CMP, 3039-3 #### [facility] ([id number]) [address] [place] [address] 49916 ALP [Catalytic activity/Vol] 65 U/L Normal 39-130 [facility] Comment on above: Performed By: #### Shakeel BCA, CMP, 3039-3 #### [facility] ([id number]) [address] [place] [address] 17227 ALT [Catalytic activity/Vol] 13 U/L Normal 0-31 [facility] Comment on above: Performed By: #### Shakeel BCA, CMP, 3039-3 #### [facility] ([id number]) [address] [place] [address] [place] [address] Anion gap [Moles/Vol] 4 mmol/L Low 5-15 [facility] Comment on above: Performed By: #### C BCA, CMP, 3039-3 #### [facility] ([id number]) [address] [place] [address] [place] [address] AST [Catalytic activity/Vol] 14 U/L Normal 0-41 [facility] Comment on above: Performed By: #### C BARAK, CMP, 3 #### [facility] ([id number]) [address] [place] [address] 53639 Bilirubin [Mass/Vol] 0.5 mg/dL Normal 0.3-1.2 [facility] Comment on above: Performed By: #### C BARAK, CMP, 3 #### [facility] ([id number]) [address] [place] [address] 51147 Calcium [Mass/Vol] 8.2 mg/dL Low 8.5-10.5 [facility] Comment on above: Performed By: #### Shakeel CANCINO, CMP, 3 #### [facility] ([id number]) [address] [place] [address] 24014 Chloride [Moles/Vol] 107 mmol/L Normal 98-109 [facility] Comment on above: Performed By: #### C BCA, CMP, 3039-3 #### [facility] ([id number]) [address] [place] [address] 67899 CO2 [Moles/Vol] 20 mmol/L Low 22-32 [facility] Comment on above: Performed By: #### C BCA, CMP, 3039-3 #### [facility] ([id number]) [address] [place] [address] 58184 Creatinine [Mass/Vol] 0.59 mg/dL Normal 0.40-1.00 [facility] Comment on above: Result Comment: METH OD TRACEABLE TO IDMS STANDARD Performed By: #### C HILLARY CANCINO, 0-3 #### [facility] ([id number]) [address] [place] [address] 20517 eGFR (CKD-EPI) NON-RACE DEPENDENT >90 Normal >59 [facility] Comment on above: Result Comment: Reported eGFR is based on the CKD-EPI 2020 equation that does not use a race coefficient. Performed By: #### C HILLARY CANCINO, 3 #### [facility] ([id number]) [address] [place] [address] 83487 Glucose [Mass/Vol] 91 mg/dL Normal 65-99 [facility] Comment on above: Performed By: #### Shakeel CANCINO [facility], 3 #### [facility] ([id number]) [address] [place] [address] 50194 Potassium [Moles/Vol] 3.9 mmol/L Normal 3.5-5.0 [facility] Comment on above: Performed By: #### Shakeel CANCINO [facility], 3 #### [facility] ([id number]) [address] [place] [address] 43578 Protein [Mass/Vol] 7.1 g/dL Normal 6.0-8.0 [facility] Comment on above: Performed By: #### Shakeel CANCINO [facility], 3039-3 #### [facility] ([id number]) [address] [place] [address] 97523 Sodium [Moles/Vol] 131 mmol/L Low 134-146 [facility] Comment on above: Performed By: #### C HILLARY CANCINO, 3039-3 #### [facility] ([id number]) [address] [place] [address] 86873 Urea nitrogen [Mass/Vol] 5 mg/dL Normal 5-23 [facility] Comment on above: Performed By: #### C BARAK, [facility], 3040-3 #### [facility] ([id number]) [address] [place] [address] LIPASEon 07-11-2023 Lipase [Catalytic activity/Vol] 28 U/L Normal 17-40 [facility] Comment on above: Performed By: #### C BARAK, [facility], 3040-3 #### [facility] ([id number]) [address] [place] [address] SARS/FLU A+B/RSV by NAAT/Mol ecularon 07-11-2023 SARS/FLU A+B/RSV by NAAT/Molecular FLU A PCR Negative (qualifier value) FLU B PCR Negative (qualifier value) RSV by PCR Negative (qualifier value) SARS CoV 2 Not detected (qualifier value) NOTE The Xpert Xpress SARS-CoV-2/Flu/RSV Plus test is a rapid, multiplexed real-time RT-PCR test intended for the simultaneous qualitative detection and differentiation of SARS-CoV-2, influenza A, influenza B and respiratory syncytial virus (RSV) viral RNA from individuals suspected of respiratory viral infection consistent with COVID-19 by their healthcare provider. This test has not been validated in asymptomatic patients. The Xpert Xpress SARS-CoV-2 test is intended for use by qualified and trained operators who are performing tests using either GeneRebls DX or GeneLuxanova systems and is limited to laboratories that meet the CLIA requirements to perform high and moderate complexity tests. The Xpert Xpress SARS-CoV-2/Flu/RSV Plus is only for use under the Food and Drug Administration's Emergency Use Authorization. Results are for the simultaneous detection and differentiation of SARS-CoV-2, influenza A, influenza B and RSV nucleic acids in clinical specimens. SARS-CoV-2, influenza A, influenza B and RSV RNA identified by this test are generally detectable in upper respiratory samples during the acute phase of infection. Positive results are indicative of the presence of the identified virus, but do not rule out bacterial infection or co-infection with other pathogens not detected by this test. Clinical correlation with patient history and other diagnostic information is necessary to determine patient infection status. The agent detected may not be the definite cause of disease. Negative results do not preclude SARS-CoV-2, influenza A, influenza B and RSV infection and should not be used as the sole basis for treatment or other patient management decisions. Negative results must be combined with clinical observations, patient history and epidemiological information. An Invalid result may occur with specimen-associated inhibition unable to be resolved with specimen repeat. Fact Sheet for Healthcare Providers: https://www.fda.gov/ media/231496/downloa d Fact Sheet for Patients: https://www.fda.gov/ media/305521/downloa d Normal [facility] Comment on above: Performed By: #### C OVFLR #### [facility] ([id number]) [address] [place] [address] 25548 URINE CULTUREon 07-11-2023 Bacteria identified Cx Nom (U) CULTURE RESULTS 10-50,000 ORGANISMS/mL NORMAL UROGENITAL JONNY Normal [facility] Comment on above: Performed By: #### 6 30-4 #### [facility] ([id number]) [address] [place] [address], [address] [place] [address] URN MACROSCOPIC NURon 2023 BILIRUBIN NEHA Negative Normal NEG [facility] Comment on above: Performed By: #### N UM #### [facility] ([id number]) [address] [place] [address] 86825 BLOOD/HGB NEHA Negative Normal NEG [facility] Comment on above: Performed By: #### N UM #### [facility] ([id number]) [address] [place] [address] 13040 GLUCOSE NEHA Negative Normal NEG [facility] Comment on above: Performed By: #### N UM #### [facility] ([id number]) [address] [place] [address] 71642 KETONES NEHA 40 mg/dL Abnormal NEG [facility] Comment on above: Performed By: #### N UM #### [facility] ([id number]) [address] [place] [address] [place] [address] LEUKOCYTE ESTERASE NEHA Negative Normal NEG [facility] Comment on above: Performed By: #### N UM #### [facility] ([id number]) [address] [place] [address] [place] [address] NITRITE NEHA Negative Normal NEG [facility] Comment on above: Performed By: #### N UM #### [facility] ([id number]) [address] [place] [address] [place] [address] PH NEHA 8.0 Normal 5.0-8.5 [facility] Comment on above: Performed By: #### N UM #### [facility] ([id number]) [address] [place] [address] 63418 PROTEIN NEHA Trace Abnormal NEG [facility] Comment on above: Performed By: #### N UM #### [facility] ([id number]) [address] [place] [address] [place] [address] SPECIFIC GRAVITY NEHA 1.020 Normal 1.003-1.035 [facility] Comment on above: Performed By: #### N UM #### [facility] ([id number]) [address] [place] [address] [place] [address] UROBILINOGEN NEHA 1.0 eu/dL Normal <1.1 [facility] Comment on above: Performed By: #### N UM #### [facility] ([id number]) [address] [place] [address] [place] [address] URN MACROSCOPIC NURon 2023 BILIRUBIN NEHA Negative Normal NEG [facility] Comment on above: Performed By: #### N UM #### [facility] ([id number]) [address] [place] [address] [place] [address] BLOOD/HGB NEHA Negative Normal NEG [facility] Comment on above: Performed By: #### N UM #### [facility] ([id number]) [address] [place] [address] [place] [address] GLUCOSE NEHA Negative Normal NEG [facility] Comment on above: Performed By: #### N UM #### [facility] ([id number]) [address] [place] [address] [place] [address] KETONES NEHA Negative Normal NEG [facility] Comment on above: Performed By: #### N UM #### [facility] ([id number]) [address] [place] [address] [place] [address] LEUKOCYTE ESTERASE NEHA Trace Abnormal NEG [facility] Comment on above: Performed By: #### N UM #### [facility] ([id number]) [address] [place] [address] [place] [address] NITRITE NEHA Negative Normal NEG [facility] Comment on above: Performed By: #### N UM #### [facility] ([id number]) [address] [place] [address] [place] [address] PH NEHA 7.5 Normal 5.0-8.5 [facility] Comment on above: Performed By: #### N UM #### [facility] ([id number]) [address] [place] [address] [place] [address] PROTEIN NEHA Negative Normal NEG [facility] Comment on above: Performed By: #### N UM #### [facility] ([id number]) [address] [place] [address] [place] [address] SPECIFIC GRAVITY NEHA 1.025 Normal 1.003-1.035 [facility] Comment on above: Performed By: #### N UM #### [facility] ([id number]) [address] [place] [address] [place] [address] UROBILINOGEN NEHA 0.2 eu/dL Normal <1.1 [facility] Comment on above: Performed By: #### N UM #### [facility] ([id number]) [address] [place] [address], [place] [address] Coding Summaryon 05-31-2023 Coding Summary HTMLBase 64 UvownofhWUy9tSh+PGhl YWQ+OJ9ZLHTpK90vlMJz oK7uV4XUNZxDSeapYWZR ZExSQuUmjkOaVG6ffAQt ZXJu IC8+FJ3zYWGyFttvjAXa x6P8aAX6M01nsr1pAKrn pCN5EWXnZoNoieyqq0or rFx8EJtjWbuzGzGl GDPzmG16PJF8pA71Gs99 nYGvxOIrr5wwpEa1HyMv HKQdBFL9xGioTUwse2Mf LVMdY09vcTGug3S3 IGNvbGxhcHNlOyBlbXB0 yB9uFGilsbvip4nhgwbv Cvy0us02aSQxo5I9hYZ1 Z8PfczZ9EZMcvHNh BufgjBRTvO2vkqgqk7af mbfrXkDlTDYzBAf7WMh6 LATpqJykKvJoRT34FYX5 ZJJvzgXlE6QnRTDr sYmvDhS1c7U0Ql0ZB4BZ FszpF0QNBELXNBpdmFI+ TZ89nn19P8PqOrveZpl3 AKPwNKS2uFM6nM2n EPYmXNjhh0L8xAQ6Z8Er jcSlwf9rh8ogEFKeZEab Z29neLYqf6T0YYOfzCO4 QKCkaJaiSyGmsX03 Oyc+FVPidGrsf9EbPbrc h4yzu0qinFz4AkkqOHPm ftSdpNbwJDF6y5ZsEh3z NBGviRT3tFV5lR7j OhHdVjE8YLybP006AbHi uWKhEkoyT15iY1GogTG+ ZBGxNml5UEFkuHpaIZ0e D6JtHBEvlfcfiVTu fHciUQ4nLBSpkkwaCNOq uD1bWMXvQ6e4MoCtRuG0 RMkkY9PsVZXaqcimXo64 kG8cPoEyVlD9LFck D7SjweR6DSWvpOXuOCnv BED9X56st1F7GYPqABZt QYR4cWP1fW0zoXkstksf bGVmdDsgdmVydGlj VFpiKYivN653HJQcxSuw PkNvZGluZyBEYXRlOiAg MDIvMjMvMjAyNDwvdGQ+ FTSgKRQ7dPatGTWy uOMvWCzjGq5kmEgxzAly HA9eHMCmqmgzJDEufC2n QTNafKCngSgmWW1vKMUa rtoyt314JqJyIKE0 THTitVUdN1VczU8yIoVs BVVqXZKpC0ShpTOhKKoz P844GJafAlP6LFFykdSo G4AfWZThjCdkOgN7 j3T7Jx1Sr5RklusrB9Ga oTQqSxWzXiqaMLp3T9Se PjwvdHI+WY09KTIfGG58 YOp1BIJ8yCekFZsp LOIgT1DdhF9hNuSqCZNw ZGRkOyc+PHRhYmxlIHdp ZHRoPScxMDAlJyBzdHls GA0iIr8pPRAmVWXu aHhoiYVmPgGvr4amXRNb AHdsMO8fwJfpF9TyrWS2 PDYzh2l5Rh98K57oY1Vu dXA+UBUzlIN2eEC6 kK6gMbTrXlW6IBriW619 VtStbEApSlqib4wmo1ni oWw3CgO0GNTgdhQhiWgp NBF0n4CgOn27D16n IHdpZHRoPSIxNSUiIHZh fRgdpb5ogX9oCv9+PGNv zNM7nMA0pW2fQnLfRvQ8 NTudF608BfPyhQNw Bvcqh6ucm5weaSy6ZfFh ZXVeroTbkLfgXOM3o0Wc Zp45X2DykSqke7WnCva3 ul71xZFwb1L4tDG0 Y3MjYHZtcszkvNKyoAxb CU7aJSGupzepUNKebI8y HRVcF6e5BvScUbJ8AEfk U7UgvmW1TRAujEDr PUJkfZQJmH8eilzlr9fz cdmhAyNkVBOvLXw5BZa8 RHYypUuyAqBhUZC5KrZ6 XIQ1dEOpbD3wpXbz cmrlyI5eMso+LJT8fYTf uXXIZG2zUzacpID+PHRk OMN6hQpxXIfwAEHwfK9e FLWaE3u7DaVkQwO0 OLehQ2MqlnS6KLEwsNOm FMJxaWLFdN7iczeuv4wm wzopGzXjCUInPSj4IHn5 LWFsaWduOiBsZWZ0 BcL5MUO6lRQqvF1xlRdl agazrZ6lBjn+QmlydGgg VTK7TIw4U1AmRjn3ACXg dJnjQX7soGTkVCrh Iy8juOzvqHliEV2bUUAn etmox223KeGdr1qhFVSs sDDgSGvzNLK1S70sl7U4 CTEkEOLcOJV5kYO9 tP4vhCdtmlewtOKswLpv waQkxKaxSImjENdgL739 LSIoxQiyEvEhYId9X5Qa Xwl7YOQvaHmoLQ7s sMOkTLffEs3fsNbrlLmv PR6fSBSzvvhet653HuBb j6zyEQObhVXgFOamYWB9 S59jc4M1CCYpNEMx QMF0qIH6dI7yrUukkgon bGVmdDsgdmVydGljYWwt XFvjM897ZDJkwNfvOoXr iNx1H7BdQdx0GBMh zJrqAO7jkPUkXWvaOv0d dZvxcPbvDJ9rRIMvgkvs i925PeJda5rjOSUykIVq YJdxKHR1U51ku3G8 VLLsUTTrBDX2oOZ7mE8k bGlnbjogbGVmdDsgdmVy sTyhYOftQTlsN295TUMg cDsnPlBhdGllbnQg HYlqUWp0A9ZuQjaevTI+ OI83WGTbSK67pQMhkELy c0rvaMg6SnUdKAGfZDJ6 aKczWSfny1TlDBDo M48ucGZcy3S5QKEmpWol aJBsStSyxQB2gR3aMJav qvcmd0pkpeipMzazo9fl ua79uH82J71eLMhj ZHRoPSIzMCUiIHZhbGln rl0eaF2hPf0+PGNvbCB3 wIL3dF0xMDRwRzI3QYdb F683PlBiuYNqSlfh w2zpz2perNj8RbO1ROSc irKxeAqbWKQ0b2NaZa79 Z65nSPpnAKIuHPAdYRCr YZNirAbdlh7cbC3b Ii8+VVHtkOF3gKY3mW4a LqGqElV9ODiwM221LvXy dEQzSjmhO70gK5XnvIC+ PPJvGma1OXKrcVpm ZO8vhZVhHXxpWp8lCZM3 WaNyOqFsAIcbR8HsTAMr hqtmkbmqdPW2FHMlQOOp uU83Jy2wmMefFBEz bZVAyO2kkbhpv8nradcg YdJvWWCgMWc4NWu0BNUw pRyjNoJfPCG0VtG0NKJ3 wXEzvY3aqPgjaoqh mE1dY9JeEHEmnqclLy88 mQ4fYnQgDjS8XOhjLqu+ L1mIQnCIPKhqV3tRXSAY BGoBMV2IVHdgyHL+ VCJqMZY1kAvyYOzjWVOe xB2xEDXsT1d2DzSkWyY1 SHgrH1PzADDcuizmSs60 hG8xAyToKlQ0IRpc K0JpgcQ9HAKpaQZgEBxz YSJ9L89xw6D4TDWbUIKl HZD3hLR2jO1hpQeydxpp bGVmdDsgdmVydGlj XPvjQHxyW646OFHgtZke TyF3GiKrVzYxPBX1U4Ve Vtq4WTGzdWbbTN4piBMi KAcdBb1scWcljYap LY5oSZVlhqapNTTunL7p UHUxoIWbsRfmEC5jMWDe nycyn147KyVrCBJ2ZWOu lJSnW0UakG5yUuPm TFLqFMEmF3WmsUCyWEbk I293MTfyQrY7XJTwkoHw D6QrKLYvjJerEiK0x5W2 Qe9bWTDQYAAibgpg dGQ+IXToVYJ9jByhFJrq GTFkkS2cNNKjY8y3ZiBq ZiN3DPvvK5UgYCKyvglt Cs95gB6zQsIjXvS5 TKzkA7ZxcdF1ZMSdfNWx NFuoNZJ8E56ar0T1SJKc HDKcHQO8qPZ3jL1nnFdp bjogbGVmdDsgdmVy iWlhVEkiJWovI143ATVv cDsnPkZFTUFMRTwvdGQ+ XVTjXKU2qGfcXPabQUQr yI2kLWTaR0d0YnIg QgV4BVhfV4ZcGDLicxdg Mv16mV8pWlXoHoO1KWyt G1PujdZ4INGsyDKaEQtv TKK8M53nd2X9AOGv YOHwTUN6aRP2iN1lfJjm bjogbGVmdDsgdmVydGlj WKixKNwkZ721BGFizYwx YfOjOMIgEP8frUky dGQ+KK80xz22V7PwYlrf Tsu6LYNyAQF9hZF9lF6d FLWtLCptl0M8nVL6O6Cs mpDkif1uk4agGKDs UAahA96hlPKfb6O1OFWl eCW9UVAqpFkuVdCmsZ74 Oyc+RILnvIvah7HvJhbc h3arx5rjoMv2NuRb MAMcemBbzDmoCWE7l0Yb Kd54X85jCGrbVCCmIBKc KQAgDCVahYdefe1hkH3y Ii8+SBDchZN2zQP5 mB0wExUmCeC9DCisJ066 JzFxpCNtEzjxe2ifi6gg eTf3NyDgVEUkgxLpeAqo CLZ4o8LrTd46X8Pu iMnax8InTja1yh91yEDt o0H2kLY9Q0RqPUDvbvlb uCMdcPvpXH5bODBlzjgy WFJggS7fMKVaJ2h7 OtUfJaS3WLaqT2MjkaU5 EHOrpQWnDWBcvZHEbZ9g ihwjb2dwsatkHwQkFISj WXb3KWx6WUOuxEri TyYhQGE7XcV6TON8fJXm mS6mdAnwxnrztG1oJar+ MDg6e1zkgSAdMQ6paHV8 OZ58TV87tIDkm5L8 fKV2Y4BvYOTkgvdvoage xHK6JPJfSCHcxP42Fd8h uVlsAb8uMNAlVCN4IEZx wAFqN8UsqS4oMwGc OPJySQOvS4KjmDYoUAfn H134QTboPmY9KFBynjCo M5FyZKHenBnhPkF4d2U9 Vx5LHO43PD54MN21 zQDum3V2fDE7X3KiMZVd nhzxzxnzxJU9HWFnOVIg mC50Oi0vrTvxQf7nBVKk NDO5DFGnhSXkD1Zo dE0sJrYiKWYxHEGwQ9Wv mTNfDOixF361JKcxBqZ8 ALBhenSxO3KrXQNicLqw GtW2i9O9Hn2AQa49 DQ93MK17gCSuh3P0sSZ4 Q4DfNOBtplqxaqbdoJL4 FOViIGGstN93Oz7nmSlj Rk8kFCKrDHK2LJTk wJGqA4PteD1vRwBlNQMm UAEzZ9XnmJTjVYqiN889 IIgsFsH1PVWflnRvT7Vz HJObvZahNrF4h7U5 Ju6NPWzanyt9J3OiMcdp dHI+SL53XDUvOT59zWZt bWHkq1hcpRn9WzXgVIAt JLK5cWcgSCjuh6Am ZXI (more content not included)... [facility] C Throaton 05-28-2023 C Throat Ordered by Discern. Normal throat jonny isolated No pathogens isolated [facility] Comment on above: Performed By: #### 1 [id number], [id number] #### [facility] (DEFAULT) [address] [place] [address] .QC SARS-CoV-2 (COVID-19)/Fl u/RSV (GeneXpert)on 05-26-2023 Internal Control Pass [facility] Comment on above: Order Comment: Order ed by Radha.[[email or web address]] Performed By: #### 1 [id number], [id number] #### [facility] (DEFAULT) [address] [place] [address] COVID/Flu/RSV (GeneXpert)on 05-26-2023 Flu A (GXpert COVFLURSV) Negative Normal Negative [facility] Comment on above: Performed By: #### 1 [id number], [id number] #### [facility] (DEFAULT) [address] [place] [address] Flu B (GXpert COVFLURSV) Negative Normal [facility] Comment on above: Performed By: #### 1 [id number], [id number] #### [facility] (DEFAULT) [address] [place] [address] RSV (GXpert COVFLURSV) Negative Normal Negative [facility] Comment on above: Performed By: #### 1 [id number], [id number] #### [facility] (DEFAULT) [address] [place] [address] SARS-CoV-2 (COVID-19) RNA MILY+probe Ql (Unsp spec) Negative Normal Negative [facility] Comment on above: Result Comment: Perf ormed by PCR methodology. Performed By: #### 1 [id number], [id number], [id number], [id number] #### [facility] (DEFAULT) [address] [place] [address] ED Clinical Summaryon 2023 ED Clinical Summary [facility] - Emergency Department [address] [place], [place] [id number] ED Clinical Summary PERSON INFORMATION Name: LIA DESAI Age: 22 Years Sex: FEMALE : 2000 MRN: Acct#: Visit Reason: Diarrhea; Fever; Headache; Throat pain - Adult; Body aches; HEADACHE, FEVER, BODY ACHES Arrival: 05/26/2023 17:02:55 Discharge: 05/26/2023 18:57:00 LOS: 000 01:55 Check In: 05/26/2023 17:02:55 Checkout:05/26/2023 18:57:00 Address: [address] [place] [address] PCP: ROBERT MARRERO PROVIDER INFORMATION Provider Role Assigned Unassigned Yassine Maldonado MD ED Provider 05/26/2023 17:04:17 [place] LANDSCAPE MANAGER Nurse 05/26/2023 17:19:42 VITALS INFORMATION Vital Sign Triage Latest Temperature Tympanic Temperature Temporal Artery Pulse Rate O2 Sat 97 % 97 % Respiratory Rate 16 br/min 16 br/min Blood Pressure /71 mmHg /71 mmHg MEDICAL INFORMATION Medications Given: Allergy Information: Adhesive Bandage; Zithromax PHYSICIAN DOCUMENTATION DISCHARGE INFORMATION: Discharge Disposition: Home Discharge Location: Home PATIENT EDUCATION INFORMATION Instructions: Hypertension, Adult, Oodr-po-Zisr; Nausea and Vomiting, Adult, Kvlk-sy-Usdp Follow-Up: With: Address: When: ROBERT MARRERO [address] [place] [address] Within 3 to 5 days DIAGNOSIS: 1:Nausea vomiting and diarrhea; 2:Elevated blood pressure reading; Diarrhea, unspecified Patient Understands: Yes - Patient/family/careg iver verbalizes understanding of instructions given Comment: Normal [facility] ED Patient Summaryon 024 ED Patient Summary [facility] - Emergency Department [address] [place] [address] PATIENT DISCHARGE INSTRUCTIONS Patient Information Name: LIA DESAI Age: 22 Years Date of : 2000 Reason For Visit: Diarrhea; Fever; Headache; Throat pain - Adult; Body aches; HEADACHE, FEVER, BODY ACHES Arrival Time: 05/26/2023 17:02:55 Primary Care Physician: ROBERT MARRERO Attending Physician: Yassine Maldonado MD Comment: Visit Diagnosis: Diagnoses This Visit Body aches ([id number]) Diarrhea ([id number]) Diarrhea, unspecified (R19.7) Elevated blood pressure reading (R03.0) Fever ([id number]) Headache ([id number]) Nausea vomiting and diarrhea (R11.2) Throat pain - Adult ([id number]) The Pharmacy at [facility] is open Saturday through Saturday from [...] alcohol and/or drug addiction problems; contact the [facility] 29/10 Crisis Hotline -Text 0QKLD iu 392780. If you received any narcotics, sedation, or [...] documents With: Address: When: ROBERT MARRERO [address] [place] [address] Within 3 to 5 days Medication Information: The exam and treatment you received today in the [facility] Emergency Department were for an urgent problem and are not intended as complete care. It is important for you to follow up with a doctor, nurse practitioner, or physician?s inventory assistant for ongoing care. If your symptoms [...] so we can reach you if necessary. [facility] Emergency Department has provided you with a complete list of medications post discharge. Please inform your flat spring assembler/provider of your visit and for further instruction [...] pressure an (more content not included)... Normal [facility] Strep Aon 05-26-2023 Strep procedure control Pass [facility] Comment on above: Performed By: #### 1 [id number], [id number], [id number], [id number] #### [facility] (DEFAULT) [address] [place] [address] Streptococcus A Negative Normal [facility] [facility] Comment on above: Performed By: #### 1 [id number], [id number], [id number], [id number] #### [facility] (DEFAULT) [address] [place] [address] Coding Summaryon 05-20-2023 Coding Summary HTMLBase 64 NiygipcnJUs6eXb+PGhl YWQ+VB5VFOKuO08hnMRn gY7iW4QKAUlKNzlaNFRJ CNbQMdNgbvZfMH5oyAIl ZXJu IC8+ZP7hBPIlAaysdCNt i7T8wKA5O80pdk8rOYxu xAZ4JGWePgUgxiiju9cg qOp8RYreSlniOlIz ZWGsuZ66EBP5rQ19Kj13 bFColDHar7hkoGe2SpWx YYJhWBF2iYqcZUaom9Bh VWPkG06hvYCbk4R8 IGNvbGxhcHNlOyBlbXB0 xF6vYTqpsmcrb7ssvvcd Jvg0ul25hJBlu7S4eQF3 V1ZlgzD1NQXydZFa WzuynCKUiT7tlovjk2ts reyqOqAeUBJtITb2AAe5 RKIltRmeTqPiDD69QVT1 MSYqzwKmM9ReKQUv sLquQuG0p6B7Vk2SX5GO NxtbJ3OAHRHWCZzxkPH+ PU11ix92I6VwQryzDiw7 EAHdMAC7cNN6pT9y CQCxRCvvm0Z5qZV9T3Zc mlMgqt8ci2apNFQzHXgd R03zuSOns3W1SKAhnQM3 RLIuiHfkOeMrxO03 Oyc+ROTulUous9SmLcel s3gee0xbzMz8XiwbFZRn fpIltOtiTUO7i3LaPa2y DFSewVL2rKT0eR0m LhEnDmB8JXzkZ112NnOn oKIpHjhiN80tV5JphVV+ FDGuThw4CAKynWvuMO2x D5YmRDNnjabstTAc sRfcHN1jUSLpbffbXJRm oB7iICNkS8d8ArXdQwY6 SUrbY9GkFCXcmgodJo68 rH2bZkPvNaO6IWmq C2TgtoM9HURykGAfWGtm CJC8G54dm1S3UCHqXTMv WUS4bTJ5mF8tcVqdzqqk bGVmdDsgdmVydGlj UEktLRyxF365OIKoeIso PkNvZGluZyBEYXRlOiAg MDIvMTIvMjAyNDwvdGQ+ MRNwVDN2xPujCSEf fUGjZYdsIg3fzVwkcTks XX1rIOLanwjpOSGuiD1j JXOnlQWfdPfqLA7fUFJy dnlfr919RsIwAFR4 EYNalZPfT1TbdY7dEjJb RXMbFLDeX8GzyMLkBRxd J765HMorTlV9XNVkgbAq Q2WnPMTvpPnjKsO9 m5K7Qb9Sm1XdcfxdG8Dw bZRhUzPkFpqnKTs1I4Kc PjwvdHI+MG22CNGhZB12 OSk4ROV9yCqwBTlk DDWeL8ZeiC5nRjWsFPDu ZGRkOyc+PHRhYmxlIHdp ZHRoPScxMDAlJyBzdHls JS0oGg5gTIOnYETq gMyqhOGkWfZux0ahXFQr BHsqSL8mhAfmL8KjdVD7 WOMau5q5Ey30T67hK5Iu dXA+DHIbxCL2xVD9 aG8sKtAiYcN7BYrhX949 EnSutUWyPjehx3jxg3in uVk8HbR0RZSbzbJpuWpe FCT6i2JiMb15I05p IHdpZHRoPSIxNSUiIHZh lAecxy2xwV4bHi3+PGNv rJG8tIH1zP7bCkIjTcZ1 JTjoE984OhZvpAWe Cxhgm2uum9ykpPv3VmRn ISDksxCnoBhxFNE8k9Nl Ds08G9UgdDdph8PcYjl4 sd32dHIiw1P9uIA4 R4XuWNKmmxwxdDVvwVbg FU2yWBJdwfpqYUDfkH6l CAZfT2t4VjYkInM1JZvw Q1EsdsE7IAItwTPp DGYphHFDyC2ndttmb8eg cueuRbVnKFIrMJf4PBx5 MJNbrSzzEeZsYYY9OpA6 BZJ1fIErhP9aeQpw gsinoY8sVyt+RRL2cTBp mNFYKP8mNzcudLN+PHRk IKF7yJcuTJzeUYRtpI4v QZNvN0i7GvSgMtJ6 DThgL8VznwR0XJZedFHd WJFnxXYBpI9mfhgig2mh uqdcXfZlGWOwFCw0JIo7 LWFsaWduOiBsZWZ0 WfD4RBE0vKLjqD8ibZdh cnjhtC2rNvy+QmlydGgg BSD5FRq5R6KqWcj0LNJn cJbbRX9zaGCcMQzu Wx7kgPsmnTuhYK5zMNNh hbdkx590TaPvr9goZJKt pHBsXIesBPL4N11mf9T2 NIGqVLGuXCA9nNN6 rR4drGapidnxfFPbxZnj scJqeHirOWkrUZkgC662 NMDlcRvoGsLxDAt4G1Hh Yhf6HLSgiIrjTN3p gXFgNNnfHz0ziPimrNng GA7sFRZtusuwx399AzDj z1onKJGdkVCcIWwhRMB4 L86bk5F0DILrOTZb PRT7fIJ3eC0biJzfywii bGVmdDsgdmVydGljYWwt HIszN629SZZpbDgvCeNg gMt6M8MnUmv0HQAx bWgmPZ5hvXKnNCaqMq0e iAdapHqaJG3tCNRtjjbc v532MhAgn2gbDWCemNXv QHfgBRY1U09qr7L1 QMOjRNWrVQP4dDN1kM2c bGlnbjogbGVmdDsgdmVy vBxkIDzhMSfxW804VOGc cDsnPlBhdGllbnQg RXkbAPf0P8OvIjetgWN+ ZR24WYAoDD28vXSguUFs r2nviOm7LzEcOFIwCFQ2 yFucBTpud6UxGHAb F15ktWUvg3C1QRWfxEqy rQQqOxCfrTP4gD5kJWfz rugzf6wqduvyEydwp7ot ob21mU21B08aJJpo ZHRoPSIzMCUiIHZhbGln ow5muB5eGl3+PGNvbCB3 eJD9xS0gPIClMfD3IHgc R527SsQtwCQjMrcz h1djc7pxjAp6UbJ6CEAk vyMkhZeoHFA0i3GlMl61 S50pGIugRLPzSZIcTEYj SXZicHjpdt9zpS0x Ii8+VSXbmVS1vJJ1cH1h LgWwTsF7ZCgoM096JnAc gXGoWhnhX38mR4AqzUF+ HVPfYvp4BCYrhMwf TN3ueQLiIGkrGv1rFVZ3 KwLpRgOmKXpkE0FbPABe zngheynijBC5NXHgUVCh uE16Qr4ouPwhFQUi zWUCsL7gddrmm2qxdoea BrLzLEAiCPa2EGv5VOAe yUipRcIlCTM9ZzS1ATO8 wSZanV1cpClhqfkd sA3tK1YpBIYcadsyAh38 dC4bUbXbIuM0TLfwAos+ R3vKJgXAHJjhU7xEEJOR KRiBPI9CENivtPK+ HVXvIAO8yBltLSfgZRZq jU8lABAmX8m3FaXnPxA5 YWozE6LjTSYvqzgfGp05 hG5kLyGtVzS2KTfj B9ZnwuG3JFZdjTYeTQlg THJ5G48ej3Y4NKQmFNGz NEQ5rKD3oV2jaDuddhyx bGVmdDsgdmVydGlj ZHdnIZpbJ695KZKfpOpw AiN2PqGtBpMbBLT9S1Ye Bkp4YLPrqZrxHB0hqQNt WLxbVt0yfRlofKzp WP8aGABeapolCVUwzD3q LSAtrVQljCslIL9mUCFp szvlo159OfTcGLG8ZTQv bLEmN6CkaG6eYvAf QLNoGGGuZ7KldVTqNWzg T602WQxbPwH9JGClshWt Z5UmEJXsnXqgEzB1w2K8 Lw6bELUXDAIvjint dGQ+EJPnKOI5aIhnJAnl XBJgiA2iGJFsJ4w5LrDh IwG7ZNqeI7QfMMZrfrsb Ro44vA0wDgEqZtG2 FFicP9BizuY4BFNhfTOy OZtjSBQ6Z63mm9B5FNWi MVAwARK3xYG5yR6mkFxc bjogbGVmdDsgdmVy dKtjOTgfEKkpP149UYQm cDsnPkZFTUFMRTwvdGQ+ SVGcOTT6nRzbPRxnVRWl bK1oTNWnF8n9CgKh KuR8XLprG5JvOYUwdapr Zw88pR1hEdPmFwR9XUhz D9ZvfqC4QKFwfAQvZKrm MHE1H53wv8R9FQSe HWSyLZM3fSF2lT8rmXrh bjogbGVmdDsgdmVydGlj QZhnZFrpR372YBVjwKnk RdYuJMFkDV3mdPmj dGQ+LZ55ah18L4JiCghy Qgy0WCQtAUU2wAM2aX3o NDHnKBbkr0S3bUX9R7Ab zpOdhw8lo3dbSIZf LVhlH49gcKScr7H0FPPi cRP0FODnuDlmFfZgzN81 Oyc+ODQtzNnyg0YyGrmr y1jfw9cwuDq8JgZh URZleyVnfYkbOPO5g4Kk Hf11W27cODliLVAzPPRt XXCnIBMdvDuzlv6ijU3f Ii8+OTNuqAK2iHY9 pH4qNdNoXaE8VVfeY683 NxVkyXOdMbtcn9qnl0su dIv1KbRcDZHurkByrFis TNX4a3RdZm63M2Yb pKvqf0OpRfb2nt89nQDq j5W5wIM2L9ZvDSHxoeri qFMbvBgjRL2nKHQfacbb HZCvzO6wDLHaR8k8 ZsQrOdX7IFyoP5XlamF9 QMKomIEySCQoxIPTjR6p fpqbw6fkqngkMeCwDNTf CUo8OBw5ASKgcXzt UxFjNVW1GgJ6YJU1xYUz dQ2uyItqggxnxV0aWcu+ XQm7j5cnpTMxYS2juON1 LE99TY83lYJwt5X9 xQO8Q2TtDPOmjhlqduvp qLG3OZRiKBKzuU79Aq2t sHqiXw9zHYXoCYF2XHVe eTAoD3WvaN6uRvEl WOPnHEZxH9NngCEtDCeb J241JHguQrV1KTCjvoNy V2KdPSAhkFeoCbL0j6J3 Yo9JKQ79DT91QR97 mBLfy3O8mLU8X0YaZQKn zyohrxsqzSC6AWObXCTo nI92Wn6fvAkcXs4lXDNi DSS2XBSydOPxI3Ys xQ1fBeQqHXFnVGBaV0Wb aSAzBMwuJ042PLswGnM6 MKKdafZcS6QvPGIxgOvi DgJ5n5V4Mg4SOj57 ZZ02ZW81cBUgx4O3aLP9 D5CoYRYvxtsvdfycfCW9 IQTeFKTzeR99Sx2nyVow Nt6aGKGnTRU9SZUg iRQjD5WyeI5tBlJaKFXt WDIoP0PcrGCcWXzyY112 VVtxNuE5HAHacjUfV8Qa RHYisTdqUrU3g6M2 Kl5QJKkjwof7R2RjUqoa dHI+CA99ZTAkIO67mDTp cAKkz5ewnEu9YfZbIFZw POM8xJprKRbcd1Yt ZXI (more content not included)... Normal [facility] C Urineon 05-18-2023 C Urine Urine Culture ordered as a result of parameters set on specific urine dip and urine microsopic results. 15,000 cfu/ml Corynebacterium species (DIPTHEROIDS) Normal skin jonny isolated Normal [facility] Comment on above: Performed By: #### 5 [id number], [id number] ####[facility] (DEFAULT)[address] [id number] ALL CBC WITH AUTO DIFFon BASOPHILS ABSOLUTE AUTO 0.0 [facility] Basophils/100 WBC (Bld) 0.3 % 0.2 - 2.0 % [facility] Eosinophils/100 WBC (Bld) 0.5 % Low 0.9 - 7.0 % [facility] Erythrocyte distribution width (RBC) [Ratio] 12.2 % 11.0 - 15.0 % [facility] Hematocrit (Bld) [Volume fraction] 38.6 % 36.0 - 48.0 % [facility] Hemoglobin (Bld) [Mass/Vol] 12.3 g/dL 12.0 - 16.0 g/dL [facility] IMMATURE GRANULOCYTES ABS AUTO 0.02 [facility] Immature granulocytes/100 WBC (Bld) 0.2 % 0.0 - 0.5 % [facility] Interpretation and review of laboratory results Abnormal [facility] LYMPHOCYTES ABSOLUTE AUTO 3.1 [facility] Lymphocytes/100 WBC (Bld) 32.8 % 20.5 - 60.0 % [facility] MCH (RBC) [Entitic mass] 28.6 pg 26.7 - 34.0 pg [facility] MCHC (RBC) [Mass/Vol] 31.9 g/dL 29.9 - 35.2 g/dL [facility] MCV (RBC) [Entitic vol] 89.8 fL 81.0 - 99.0 fL [facility] MONOCYTES ABSOLUTE AUTO 0.7 [facility] Monocytes/100 WBC (Bld) 7.7 % 1.7 - 12.0 % [facility] NEUTROPHILS ABSOLUTE AUTO 5.4 [facility] Neutrophils/100 WBC (Bld) 58.5 % 43.0 - 75.0 % [facility] Platelet mean volume (Bld) [Entitic vol] 10.7 fL 9.5 - 13.5 fL [facility] TBH EO # 0.1 [facility] TBH PLT 211 [facility] TB RBC 4.30 [facility] TB WBC 9[facility]3 [facility] .Auto Diff on 05-15-2023 Auto [place] % 8 % Normal 1-12 [facility] Comment on above: Performed By: #### 1 [id number], [id number], [id number], [id number] #### [facility] (DEFAULT) [address] [place] [address] 78008 Baso Abs# 0.1 x10 Normal 0.0-0.2 [facility] Comment on above: Performed By: #### 1 [id number], [id number], [id number], [id number] #### [facility] (DEFAULT) [address] [place] [address] 44847 Basophils/100 WBC (Bld) 1.0 % Normal 0.2-2.0 [facility] Comment on above: Performed By: #### 1 [id number], [id number], 1716375, [id number] #### [facility] (DEFAULT) [address] [place] [address] 60600 Eos Abs# 0.0 x10 Normal 0.0-0.4 [facility] Comment on above: Performed By: #### 1 [id number], 20368090, 3169532, [id number] #### [facility] (DEFAULT) [address] [place] [address] 05403 Eosinophils/100 WBC (Bld) 0.2 % Low 0.9-4.0 [facility] Comment on above: Performed By: #### 1 [id number], 43950853, 0185039, [id number] #### [facility] (DEFAULT) [address] [place] [address] 82812 Lymph Abs# 2.6 x10 Normal 1.3-2.9 [facility] Comment on above: Performed By: #### 1 [id number], [id number], 2123868, [id number] #### [facility] (DEFAULT) [address] [place] [address] 51416 Lymphocytes/100 WBC (Bld) 25 % Normal 14-48 [facility] Comment on above: Performed By: #### 1 [id number], [id number], 8725690, [id number] #### [facility] (DEFAULT) [address] [place] [address] [place] Abs# 0.9 x10 High 0.0-0.8 [facility] Comment on above: Performed By: #### 1 [id number], 74464156, 4532843, [id number] #### [facility] (DEFAULT) [address] [place] [address] Neut Abs# 6.6 x10 Normal 1.5-9.2 [facility] Comment on above: Performed By: #### 1 [id number], 68118084, 6962607, [id number] #### [facility] (DEFAULT) [address] [place] [address] Neutrophils/100 WBC (Bld) 65 % Normal 44-88 [facility] Comment on above: Performed By: #### 1 [id number], [id number], 2145620, [id number] #### [facility] (DEFAULT) [address] [place] [address] BMP Standardon 05-15-2023 eGFR Non AA >60 Invalid Interpretation Code [facility] Comment on above: Performed By: #### 1 [id number], [id number], 5806679, [id number] #### [facility] (DEFAULT) [address] [place] [address] 09534 eGFR AA >60 Invalid Interpretation Code [facility] Comment on above: Performed By: #### 1 [id number], 07050272, 4800891, [id number] #### [facility] (DEFAULT) [address] [place] [address] 24987 Anion gap [Moles/Vol] 15.2 mmol/L Normal 5.0-19.0 [facility] Comment on above: Performed By: #### 1 [id number], 71869030, 3069739, [id number] #### [facility] (DEFAULT) [address] [place] [address] Calcium [Mass/Vol] 9.2 mg/dL Normal 8.9-10.3 [facility] Comment on above: Performed By: #### 1 [id number], 46533853, 0953283, [id number] #### [facility] (DEFAULT) [address] [place] [address] 11928 Chloride [Moles/Vol] 106 mmol/L Normal 101-111 [facility] Comment on above: Performed By: #### 1 [id number], 66104593, 4017535, [id number] #### [facility] (DEFAULT) [address] [place] [address] 63442 CO2 [Moles/Vol] 17 mmol/L Low 21-32 [facility] Comment on above: Performed By: #### 1 [id number], 46081091, 3239700, [id number] #### [facility] (DEFAULT) [address] [place] [address] 34587 Creatinine [Mass/Vol] 0.55 mg/dL Low 0.60-1.30 [facility] Comment on above: Performed By: #### 1 [id number], 40848437, 2671638, [id number] #### [facility] (DEFAULT) [address] [place] [address] 49834 Glucose [Mass/Vol] 75.0 mg/dL Normal 74.0-118.0 [facility] Comment on above: Performed By: #### 1 [id number], 20346261, 7479854, [id number] #### [facility] (DEFAULT) [address] [place] [address] 60893 Osmolality 266 mOsm/L Invalid Interpretation Code [facility] Comment on above: Performed By: #### 1 [id number], 06921520, 9198914, [id number] #### [facility] (DEFAULT) [address] [place] [address] 47156 Potassium [Moles/Vol] 4.2 mmol/L Normal 3.6-5.1 [facility] Comment on above: Performed By: #### 1 [id number], 66339650, 4346524, [id number] #### [facility] (DEFAULT) [address] [place] [address] Sodium [Moles/Vol] 134.0 mmol/L Low 136.0-144.0 [facility] Comment on above: Performed By: #### 1 [id number], 60361036, 4405684, [id number] #### [facility] (DEFAULT) [address] [place] [address] Urea nitrogen [Mass/Vol] 9 mg/dL Normal 8-26 [facility] Comment on above: Performed By: #### 1 [id number], 62788855, 0157727, [id number] #### [facility] (DEFAULT) [address] [place] [address] Urea nitrogen/Creatinine [Mass ratio] 16.3 mg/mg High 4.6-16.2 [facility] Comment on above: Performed By: #### 1 [id number], 91491240, 7121820, [id number] #### [facility] (DEFAULT) [address] [place] [address] Breakpoint Chem Normal [facility] Comment on above: Performed By: #### 1 [id number], 17451385, 9463692, [id number] #### [facility] (DEFAULT) [address] [place] [address] CBC w/ Auto Diffon Erythrocyte distribution width (RBC) [Ratio] 12.9 % Normal 11.5-15.0 [facility] Comment on above: Performed By: #### 1 [id number], 73433572, 0295038, [id number] #### [facility] (DEFAULT) [address] [place] [address] Hematocrit (Bld) [Volume fraction] 39.2 % Normal 33.7-40.4 [facility] Comment on above: Performed By: #### 1 [id number], 70640825, 2468065, [id number] #### [facility] (DEFAULT) [address] [place] [address] Hemoglobin (Bld) [Mass/Vol] 13.4 g/dL Normal 11.3-15.9 [facility] Comment on above: Performed By: #### 1 [id number], 46150546, 9258680, [id number] #### [facility] (DEFAULT) [address] [place] [address] Man Diff? RBC Morph Only Invalid Interpretation Code [facility] Comment on above: Performed By: #### 1 [id number], 75236081, 7320775, [id number] #### [facility] (DEFAULT) [address] [place] [address] 29871 MCH (RBC) [Entitic mass] 29 pg Normal 24-34 [facility] Comment on above: Performed By: #### 1 [id number], 21561638, 3807393, [id number] #### [facility] (DEFAULT) [address] [place] [address] 21158 MCHC (RBC) [Mass/Vol] 34 g/dL Normal 26-37 [facility] Comment on above: Performed By: #### 1 [id number], 06105572, 0066434, [id number] #### [facility] (DEFAULT) [address] [place] [address] 63223 MCV (RBC) [Entitic vol] 84 fL Normal 81-100 [facility] Comment on above: Performed By: #### 1 [id number], 12471623, 8913118, [id number] #### [facility] (DEFAULT) [address] [place] [address] 01181 Platelet 228 x10 Normal 138-427 [facility] Comment on above: Performed By: #### 1 [id number], 12761909, 4548528, [id number] #### [facility] (DEFAULT) [address] [place] [address] 97110 Platelet mean volume (Bld) [Entitic vol] 8.7 fL Normal 6.3-10.2 [facility] Comment on above: Performed By: #### 1 [id number], 23503949, 8141766, [id number] #### [facility] (DEFAULT) [address] [place] [address] 72515 RBC 4.66 x10 Normal 3.70-5.30 [facility] Comment on above: Performed By: #### 1 [id number], 76948576, 5221450, [id number] #### [facility] (DEFAULT) [address] [place] [address] 39087 WBC 10.1 x10 Normal 3.5-10.5 [facility] Comment on above: Performed By: #### 1 [id number], 78222702, 8227077, [id number] #### [facility] (DEFAULT) [address] [place] [address] 86475 ED Clinical Summaryon 2023 ED Clinical Summary [facility] - Emergency Department [address] [place] [address] ED Clinical Summary PERSON INFORMATION Name: LIA DESAI Age: 22 Years Sex: FEMALE : 2000 MRN: Acct#: Visit Reason: Vomiting - ; 10 WEEKS , NAUSEA, VOMITING Arrival: 05/15/2023 13:59:38 Discharge: 05/15/2023 19:41:00 LOS: 000 05:42 Check In: 05/15/2023 13:59:38 Checkout:05/15/2023 19:41:00 Address: [address] [place] [address] PCP: ROBERT MARRERO PROVIDER INFORMATION Provider Role Assigned Unassigned Joelle Nava LANDSCAPE MANAGER Nurse 05/15/2023 15:05:55 Mamie Moore MD ED Provider 05/15/2023 15:56:16 Chrissy Diego LANDSCAPE MANAGER Nurse 05/15/2023 19:19:53 VITALS INFORMATION Vital Sign [...] With: Address: When: ROBERT MARRERO [address] [place] [address] Business (1) Within 3 to 5 days With: Address: When: Follow up with specialist Within 3 to 5 days Comments: Your COMMERCIAL DESIGNER DIAGNOSIS: 1:Hyperemesis of Patient Understands: Yes - Patient/family/careg iver verbalizes understanding of instructions given Comment: [facility] ED Note-Nursingon 05-15-2023 ED Note-Nursing PT. C/O nausea and vomiting. PT. is 10 weeks with her first child. PT. has prescribed Zofran but has been out of it for 1 week. Pt. is scheduled for a Zofran pump. Pt. states that she has not been able to keep any foods or fluids down. Pt. is A&O X4. PT. has a steady gait. [facility] ED Patient Summaryon 024 ED Patient Summary [facility] - Emergency Department [address] [place] [address] PATIENT DISCHARGE INSTRUCTIONS Patient Information Name: LIA DESAI Age: 22 Years Date of : 2000 Reason For Visit: Vomiting - ; 10 WEEKS , NAUSEA, VOMITING Arrival Time: 05/15/2023 13:59:38 Primary Care Physician: ROBERT MARRERO Attending Physician: Mamie Moore MD Comment: Visit Diagnosis: Diagnoses This Visit Hyperemesis of (O21.0) Vomiting - ([id number]) The Pharmacy at [facility] is open Saturday through Saturday from [...] alcohol and/or drug addiction problems; contact the [facility] 29/10 Crisis Hotline -Text 6BROP ew [phone]. If you received any narcotics, sedation, or [...] documents With: Address: When: ROBERT MARRERO [address] [id number] Business (1) Within 3 to 5 days With: Address: When: Follow up with specialist Within 3 to 5 days Comments: Your COMMERCIAL DESIGNER Medication Information: The exam and treatment you received today in the [facility] Emergency Department were for an urgent problem and are not intended as complete care. It is important for you to follow up with a doctor, nurse practitioner, or physician?s inventory assistant for ongoing care. If your symptoms [...] so we can reach you if necessary. [facility] Emergency Department has provided you with a complete list of medications post discharge. Please inform your flat spring assembler/provider of your visit and for further instruction on these medications. Any specific questions regarding your chronic medications and dosages should be discussed with your primary care physician(s) and/or pharmacist. Medications That Were Updated - Follow Below Instructions [facility], [place] [id number], [phone] Updated: ondansetron (ondansetron 4 mg oral tablet, [...] drinking abad (more content not included)... Normal [facility] Morphologyon 05-15-2023 RBC morphology finding Nom (Bld) Normal Normal [facility] Comment on above: Order Comment: Order added by Discern. Result Comment: some platelet clumping observed Performed By: #### 1 [id number], [id number] #### [facility] (DEFAULT) [address] [place] [address] UA Skfia9sz 05-15-2023 UA Amorph. 1+ [facility] [place] Comment on above: Order Comment: Urina lysis Microscopic order added on by Discern Expert Rules system. Performed By: #### 5 [id number], [id number], [id number] ####[facility] (DEFAULT)[address] [place] [address] UA Bacteria 1+ [facility] Comment on above: Order Comment: Urina lysis Microscopic order added on by Discern Expert Rules system. Performed By: #### 5 [id number], [id number], [id number] ####[facility] (DEFAULT)[address] [place] [address] UA Mucous 1+ [facility] Comment on above: Order Comment: Urina lysis Microscopic order added on by Discern Expert Rules system. Performed By: #### 5 [id number], [id number] ####[facility] (DEFAULT)[address] [place] [address] UA RBC 3-5 [facility] Comment on above: Order Comment: Urina lysis Microscopic order added on by DialedIN Expert Rules system. Performed By: #### 5 [id number], [id number], [id number] ####[facility] (DEFAULT)[address] [place] [address] UA Squam Epi Moderate [facility] Comment on above: Order Comment: Urina lysis Microscopic order added on by DialedIN Expert Rules system. Performed By: #### 5 [id number], [id number], [id number] ####[facility] (DEFAULT)[address] [place] [address] UA WBC 5-10 [facility] Comment on above: Order Comment: Urina lysis Microscopic order added on by DialedIN Expert Rules system. Performed By: #### 5 [id number], [id number], [id number] ####[facility] (DEFAULT)[address] [place] [address] UA w Culture if Ind Standard on 05-15-2023 Breakpoint UA [facility] Comment on above: Performed By: #### 5 [id number], [id number], [id number] ####[facility] (DEFAULT)[address] [place] [address] Color (U) Yellow Normal [facility] Comment on above: Performed By: #### 5 [id number], [id number], [id number] ####[facility] (DEFAULT)[address] [place] [address] 23123 Culture? Indicated Invalid Interpretation Code [facility] Comment on above: Result Comment: Resu lt created by rule GL_MAGR_ADD_UA_CULT Result created by rule GL_MAGR_ADD_UA_CULT Result created by rule GL_MAGR_ADD_UA_CULT1 Result created by rule GL_MAGR_ADD_UA_CULT Performed By: #### 5 [id number], [id number], [id number] ####[facility] (DEFAULT)[address] [place] [address] Glucose (U) [Mass/Vol] Negative Normal [facility] Comment on above: Performed By: #### 5 [id number], [id number], [id number] ####[facility] (DEFAULT)[address] [place] [address] Ketones Ql (U) >=80 Normal [facility] Comment on above: Performed By: #### 5 [id number], [id number], [id number] ####[facility] (DEFAULT)[address] [place] [address]504 Micro? Indicated Invalid Interpretation Code [facility] Comment on above: Result Comment: Resu lt created by rule GL_MAGR_ADD_UA_MICRO Performed By: #### 5 [id number], [id number], [id number] ####[facility] (DEFAULT)[address] [place] [address] UA Bilirubin MODERATE Abnormal [facility] Comment on above: Performed By: #### 5 [id number], [id number], [id number] ####[facility] (DEFAULT)[address] [place] [address] UA Blood Negative Normal NEGATIVE [facility] Comment on above: Performed By: #### 5 [id number], [id number], [id number] ####[facility] (DEFAULT)[address] [place] [address] UA Clarity SL CLOUDY Abnormal CLEAR [facility] Comment on above: Performed By: #### 5 [id number] ####[facility] (DEFAULT)[address] [place] [address] 16045 UA Leuk Est Negative Normal NEGATIVE [facility] Comment on above: Performed By: #### 5 [id number] ####[facility] (DEFAULT)[address] [place] [address] 27370 UA Nitrite Negative Normal NEGATIVE [facility] Comment on above: Performed By: #### 5 [id number] ####[facility] (DEFAULT)[address] [place] [address] 65432 UA pH 6.5 Normal 5-8 [facility] Comment on above: Performed By: #### 5 [id number] ####[facility] (DEFAULT)[address] [place] [address] 44564 UA Protein 30 Abnormal NEGATIVE [facility] Comment on above: Performed By: #### 5 [id number] ####[facility] (DEFAULT)[address] [place] [address] 38896 UA Spec Grav >=1.030 Normal 1.001-1.035 [facility] Comment on above: Performed By: #### 5 [id number] ####[facility] (DEFAULT)[address] [place] [address] 93286 UA Urobilinogen 1.0 mg/dL Normal 0.2-1.0 [facility] Comment on above: Performed By: #### 5 [id number] ####[facility] (DEFAULT)[address] [place] [address] 46917 Urine Source Clean Catch Normal [facility] Comment on above: Performed By: #### 5 [id number] ####[facility] (DEFAULT)[address] [place] [address] hCG Quantitativeon hCG Quantitative 887602.0 mIU/mL High 0.0-0.6 [facility] Comment on above: Performed By: #### 1 [id number] #### [facility] (DEFAULT) [address] [place] [address] Coding Summaryon 05-02-2023 Coding Summary HTMLBase 64 PhbdctdnYDj0qVy+PGhl YWQ+WA3TGDYeQ83kvBUz fZ7yM3KQOFqFVgekFXYT HOwPOeUbsiTpVC0ejHJu ZXJu IC8+XC0pESJuOeigfEFn c2D3dFQ6A55sgi7cFOvd hOQ5TWZjYwDilcfhv6ev tUp5NTvfWfgsDjYs MZHttQ81PKM8zP85Ly43 hNKysWDjs0rfdHj0KdIf EGLeOSA7eWquRYivx1Pk VCVuS57hqPMab2N6 IGNvbGxhcHNlOyBlbXB0 uT6qJPubkolki3pvuumi Grs9xe10tFSpe0D5wJN0 L6OxaoZ4RKUzuFZh AinskNJSiZ0hphesy4cb vkweIdRnLDXeTWv2WDz4 GXPycMdzFfZfDA47HWL5 MTSllbPuE4OcMRIb bYwjNaE8e3L8Vh2PK2RM JgffD2FPJSURNIdgcBX+ JQ93pv52Y4EgUfdzExk7 UUOrPCI1rVY2pU9r ZYKbWGzed6D2wQG6U3Wx zvUsph2oc9tlULLbUWhj Q15hkPKdf4P8SKXopKH0 UCLtqFrfPgFobQ38 Oyc+LRTpgYnzt0BgXpch b9ehu5jugVu7NbkiUGVn qlIsmEntFPO6u4SwLv5g OYBhdSN8nTM6eK9m HrZqHdD6UBpeX892ZeHo hAQdPrdvV38iH4TzoMJ+ DQKdZzx4ULLlcQlmFJ5o O1HaRFTneorrdYZw yIniHD3kYHWbwhweYHWf wT9yXIInR5m8FiEdHnN7 YShsT6VwWSRnowsyTv64 dX3sIpGrRyO3HDlg E2YaokQ6FYMtwNXiRPvt ROS2L06ey3S5FCWnNSNe ZRL8wQR9qW3fxXacssyq bGVmdDsgdmVydGlj NQjaDFrcQ904GUZcaQba PkNvZGluZyBEYXRlOiAg MDEvMjUvMjAyNDwvdGQ+ DIZsECR5sCaeAAWy kXAvKWpjWj7lwJdebSvs FH6mCLHzksifLHZpjT7k JVVlsTJzaKgkGJ5pGWVk jiadb737MaApPVQ3 KVOfnNLmD8TfkL6oYnWb ILShBSFlT9UbdIUpBXlr B013NBrwAcJ3DNOwajYn K1KsYBUspSewMnO3 j3G5Sa1Pm7OwnibtZ0Ju fMFsVhUnBsnzUXn4N9Dk PjwvdHI+YI26CVUdZA31 CAp7CKP5sGylGBmi TPXjO6RjgU2nPxReKLXr ZGRkOyc+PHRhYmxlIHdp ZHRoPScxMDAlJyBzdHls FE3sSp3vNVPdYUDb hBrwjCZkHqQwr5kiWWAt NXigTL2ndAuvI0LqjAU6 YEAxi2g4Dw08R36tN9Ca dXA+WMIriRU9tOR2 bX3eHbXhBvH7FJyvH961 MrHhxIUoKsftu3wki7ym kFh1OhQ8PRIlaiVwwQsd ZVN2t8XsUc17Y78k IHdpZHRoPSIxNSUiIHZh zMynpw0auS7dEk0+PGNv iWR5cVR8kZ0dVpWzNnF1 MObxA317EnTteEAb Dpacp1znl1dkuDo6PtOv RYYfkrDkkQhgSFW5l7Ps Xy07H9QsdEkis6RnMpy8 yg30aEPss9E6oQJ5 A6CtGOXbspowhLXmdQef PL3rFSIbzcukEUAnbI8g APHyT9e1GeDwWvM8AJhh B1NowkK9UTHbhHDl BEYsnVISbS0lwills8sj tqrfReWvOZFtGHg0QEf1 JIJpsSdjFdNdDRX5VyN2 MRC2dSNkxS3ytRvf gmnxrV8vKyq+FVW9xWLk oMFETQ0rSdxtgQI+PHRk PXX5yElgTDqaAUPdmL9n RZBwT0m2HhZcLfU6 RRzeO8SsxnZ8YWSejKBx MTTbjAZYpQ9vjyeqw6gc vmhjNzGaAYUeILb2FXc6 LWFsaWduOiBsZWZ0 ObX4XVP3jMJfwD3ysEsh ddpvdF4lLpe+QmlydGgg RLW6NPv0C9PpKit0KAHa qGlbIH7gkHQmBTbc Cm8kmKfesEdtOR4zUIDe mbmkd250IgHqm1ccCVMi bPIxXUagHZY5G35hc2C7 QYNuMVWvBNH0oSQ9 yO7bjLptdyocjLZedIwu hhMumMjsQAnhOFeiI211 CERwcLgpMlIhZQt0Q1Qz Ody2UEOpsVisOS1c qGRuEXadZi5rwGdsdTvz KX5mWHNpcvbnt787EuSb c8bbWWZusDYpPZllAFB7 Q39us4L4TRTlQNBb PVI8kCC8rT9eqZyqfnrj bGVmdDsgdmVydGljYWwt ICwpV882VILxjKqbFiCj sVr8C3EsChm5KTVg nUmtNC0dlZPmPGbrPi1r oHhzzZodAA0uZQAqlhxr m048CzJlj1tyZQJlnZFd XAgyXCW8Y86nf7C5 INAdBBBaKCV0aDZ1sD3m bGlnbjogbGVmdDsgdmVy vOrtHZlnYZajF174YBHk cDsnPlBhdGllbnQg IFchKPr7Y2FrLbmziUV+ FY71VBDbWF49mXSdcYXh r7estEv2LcEpNPDtLAK9 tOybKHbvt5WpWORp S16hnPNpe5K6KDRhhCoh gUFuTwUmfUI8aH6bAGwh escru4yocwdgQxeqr3ne yo90hQ94Z71jIUba ZHRoPSIzMCUiIHZhbGln lm3dlP1hGr6+PGNvbCB3 oZA4bU7gXTSsQrF7RPek X939CfWblRRoWvpj y5qmt6uejCm8NqP1HWNr tuJliNxqPEO8l2ZkBb91 O41bHCxxOLLsUDLyIEKi PUBqmDmfyd8cdY2e Ii8+ZPEhoXQ6bFL5wZ0g DtZrYeI1SBxlR823YdZt wLOrDhcnV31iZ7GexQD+ TGWuIkd3SOZniXcw TO1cbCEkKAtrOr0dKBF3 RdLgYxXgLGlzJ3DmVPLf qyawuefubFE0GCKpIVXm wS89Al8qsAryVXLc gAGDlL2qiufwl4ycdglx IpKfNZOyMSz3JKe7XCKl oNwfBeSzHYC8UhS4TIC3 dUAoeA2fxElgpvfa mX9wZ6JqLCLfsadtSu80 eS8pEbPwHzT9HLgcYav+ F6cIRvQRKBxcZ3hFUIVM RHyJJH1VSNcimHO+ VQTkMQS1yJfjGAycRHDl rY0vATUkS7w4UfJePxM1 AXucC2YyDTQrrikmWj86 zK3oAbSiDyS3ZXkg Q6LelyH0JYNcfSBrYMpl GLO5H39jb3Y8UWIoADUs MWO1tKN3fB8jfRsjdiya bGVmdDsgdmVydGlj RXahIQqrL821ZMUgnQqv UhN4GnYxLtSzTBT3T5Lb Acn5SDSgiRmhJE1xsPLz GUjeZv9cpKxnsMex MH2nOBNmizozEYGcpA6u OKPvnPPslWmvTL5jYGZn hkmac628LhLwNLR2JCNt fMZqD0YelW1zEeDp QCKwCLJvS9IykOFnWXtc H744QBfyCqY4TLRhtrSw B5NjPKFbxCwwBjV0k5O7 Fo6vQHKFLJGoqwym dGQ+STXmFJP8fYccPPiu HLQolR9nUHBdG3x7EoZm ZpH4GRkxK0SrRJCwkefd Bc95vB7zKyLdCcG9 ELjzK5QrbsR5NLZloUEg DOedDMV2R24gh9X2GCSr TWGbBDE4iEY9vG2vdEcy bjogbGVmdDsgdmVy eKaaOCmtLEnmQ515FQFt cDsnPkZFTUFMRTwvdGQ+ PXWgZSH7fVzyQYkqJYYb iD9aGNTbI1x5NjJj RfZ0IBvdI3InMZKwgpsc Cr26dI9lTvVjMlI8NKqe V3GrcbU4TDNbwIUaYArc AVO9U94it9M0GJBa RPWqYSP9rQK3oR6poVrn bjogbGVmdDsgdmVydGlj TDofWCpfG503CYDlrYaz JjEuODLuRI4qtDit dGQ+ZK13ia45J0NaMeij Siu1LUQqURQ4fSD4aU9a SHUnWBvqg8Y8eKF1P9Az nxOhpo7gm0skSKBu AQfyX55oyISee3I3CIWg hWX5ONQcwEspIuVwnK70 Oyc+NNKpmBsaq9CzLbap l8pck2knxNe8QrNr BIXbnwSlvZsuEDE8g9Wd Rk17A43zTVbnKVAiYVQi WNBcMVEunOqbcu5dyW6m Ii8+ZYBsdKU2qWH2 pZ2gRhBxEcA9MSqqN165 WhYbfBKbOtxfx2wfo2ne yCs3FvZmWEGwiwYdkGyb UGE8v8CkSj59W4Hn uXkmv9QhBop8vd53qTZg h6K7lSX3I4AqDEXiyzja oSMtiJlcDW1iZKYmgfcq LXUrjK6mQHBmF9g8 WsAbWnK5QSljE4VwusT7 QHCzoPMcXJQycJHQdE3u dtfmf3hionmxAtQqLNKm TPk9VBm7EKPofWlw KzQmMPM8AnS8YJM4hCFa nJ1ylMcvokaaaU4pNsv+ VPd8v2yivYKbSL3eeQC3 VK72RC44ePRve7K3 fJN7T6SqYNFbfxtbrvrh vFH5RXKpYBZaiT38Fy2h wQzkZv5dASAuKWE6PTXl aXGuG3YfqO3eEiEs HCLoRMUaZ1SjxUEcWYjk T055ZMnyRwV7FIRqqrBk B4DsJJSeiZbdOgY6f5L7 Vx0XLL73BE48ZT79 mNPyu5S5sNH7N2GxMGOx thdjzlxfbRP0TAMqMDFf nH36Vr1sxKoxNp4jWHJr RWS8UURpnXRrY3Pk mQ6yFgIqXTInNDCiP8Fm rZUhVSjtX738XJpwGsY0 EOIhqwLuN6MfCWCdjZth XnV1t7B3Rj8KTf76 AF76GE39fZRcc1N3jVY2 U4VvHGNiltdscwunkIG3 WIZoFLStwB29St0bcOin Xc6eQMHwKRE1TWLb jFMgK7XrpX5yJsZdPRLt OGVzL6YvsMIiIIwbD644 FHjsZeM4QUVnluQtG4Aa QYSyhFdjUbS1k5E5 Qb7IGRkmmgy9Q0ZlZrmb dHI+WW69OUKzYW12cSIg rVIqh2edaGa3XdEtKIEf UKE6iMyfATggk9Cx ZXI (more content not included)... [facility] [place] Coding Summaryon 05-01-2023 Coding Summary HTMLBase 64 HcqgpociKLe1iVk+PGhl YWQ+ZS0XPAIwZ93rzTZl qM9aK1ZVSTyACkhyUYKO WZrOEfKbsoGeGT3fyOLe ZXJu IC8+FW5xQNLjQyqlgLDg d8D5cYV8K39wne5yKBqx cXW2QTLpMbViqjvtr9oh cLh7EDbgTxmsKwCt XDDfgR18PMH1dB13Wf65 tIVjfWEml3hgbRp9YnFx INKtSUD5yZbgDXqic8Xa TUWtQ45riPEoh2C6 IGNvbGxhcHNlOyBlbXB0 zT7uWXyounaog6rpfdir Vpa9ln73uAWqz7V5yLJ0 X1WpckB8QZOxySWc DkdbxHUPjA3cpadsj2wf yewkGhQzAYHyJQd3LCa1 RKHlbHghHsDzEC76QNW5 XSMhycXtT5XbTAJz fUsvEuQ3j1M1Dn3XQ9NY OzseL2YOKRGEEAnexVB+ BF41ke83S8ReOpslQim5 RHOhCNP1sEM1zR1d WRKrCKzhr9E3zJW8I0Zi fkTqro8ng7xdEQTdOEac G70eaVHog4V2IXTdxQM5 MTHbsEyfBlTgwO79 Oyc+GHVemEakj5PpBupq c6gjs5rxgHc0ZkicAAVk ukQatAkcEJV4t3PtCr9v YZOreVR6wLJ4bR4v JfRaDsJ1FZrfG116HcPp dIWxYmrgU85sU0NtfPH+ SDZbTiy6OMNhkInqQB7q E8IjWQZovepthNNi rIxtNM6uGBVedzmbSPLl xL4gUAKqW8f2QmCmQfF5 AQjgC3AvNVYauhenGh47 nO3bWxGgZuE0EQhj N9PsufR0OWPdvWZgLAll CLX8K96gu1U8DGPdWLJd QJR5eCV2zX3asTbgnbdi bGVmdDsgdmVydGlj JJhoTPdhZ122PDVjyZab PkNvZGluZyBEYXRlOiAg MDEvMjQvMjAyNDwvdGQ+ YRXkSCX4zRwjCGIe tCWtHJtaGp8wjYesfRzx RE9uKVHvmwouSUIgyK6u BKXrrVQrrMdeRZ2pLBPn ntipc848OoInXJR2 YNZciHTfS1CkjC4iHkZr TSKjPMRnZ4KskBVvFEtf Q247KXgeTkM7BGPkqaBp H6CiHQGzrPhgRpD6 r8S0Bc2Uo5GtdgwgY0Cq pFVuSfBaRmjvSOj7F2Fk PjwvdHI+OT92KGByXH33 VAx3JCJ1hLifFDev PUZnY5OuyQ8vRaVwZPXe ZGRkOyc+PHRhYmxlIHdp ZHRoPScxMDAlJyBzdHls WG2uAk5gFOUzJYVm uArxrGYtWpYnk0ciVTSn RDcfMQ9wbJodK3UbaYA6 SFWcc8p2Kc80K09fW3Np dXA+IRSqcJK9yDE4 rS3uIrXtZsI4ISyoF416 GuQekBXkThzyw2byc9ws yMx1YdQ3HROrvbHfqZhz ONR2x6RiMf02V54j IHdpZHRoPSIxNSUiIHZh zCgtyl6lkB4pUz9+PGNv lAD6nSA8uQ3eBsFdWzS9 QVwuN249EyMmyCKx Ddqye7vua5hclXv9XuEf GIUtiaCauLxdOSZ6o5Ec Jd90B5IfaAqnx4LuDze8 oo02aHOwr7Z2eKB8 H6YxJBIpbovyvBYeuJwm LZ5aJRTldfalMEQhkM8r MKYpJ3r3RwFjUcY6QKft Y3OlojU9ORObtWOq EGUndSHUoH7ajxjwf2rb mpyoWyFdSGCjAQa8FSa8 XQUfmArzLwVlLJL0StK0 LSI4nAJnoQ2ivMym efigbD4qWfq+OQY4jOBk gVIOMV3yJptxoLJ+PHRk XEE1yPfdWYviQHZzgP6x GDRqP7m8XhIpZzQ1 CGgjT1DitdP1KITgqADb DQAutTQPtY5prqyfj3oq rqehCuKlIWRdGPm9CHy3 LWFsaWduOiBsZWZ0 CuE3WND7wZUvaK2lmOgq gaaizL1pNnh+QmlydGgg MBZ9PGr9P4KkSmb6QNXt mThfWR8dgCCmEBvb Ol0qjQyhoByzNO7nASRh aypjg680PdPfa2bgVTAs sULtSIlvIPP8P69jq9C4 TXEfIKLdYCQ6xDQ4 eE9klChxvticqXRxsTcf zpNzkSegYRbsMSemJ110 WZSogJmoObSkYLm0Y6Od Ygm1EYHyoDpvKS0s tHWkYZllAo4ebUpxlIvc XJ6pCNLkrwttc460UkNb c6dhMHZglTAbCYxeQWO6 C55sm6Y4GBRrMDUz YLG0zVB4cH0kfItsuxrn bGVmdDsgdmVydGljYWwt SLahD412LBQknVdfPuQf cIt5X5BuEqt1CUVu dAvpQT6itKVxFTwlHa9h aDbopQfrRA0kGBPnkzdk a202XlVch4zpPPKgiEZo GXemPAN8G70qe5C5 UUFyOEHgIEP0dYF2gO1q bGlnbjogbGVmdDsgdmVy kHabXEznXOohD625TRWp cDsnPlBhdGllbnQg COxhSEn8V0YzHyoqeUM+ AG12NUFjLP25uXIrzGLt y5izcVy7WfEnBKHxMTS2 bHcsODhmd4RuKAAa Z69jgLPuy2D3KBArkDvx dUSuKjRldOP5sA9eNJmw dnejt0qdgfcmQolqv6ar ai47yI15J99qLTsw ZHRoPSIzMCUiIHZhbGln gn0rdG6jVq4+PGNvbCB3 fJQ6uU4mMNWkPgC9TLxb H261RrDiyBLzDdfy j5rje8fjqOf0ZjG4XHDt uyXxyYxzMCT8e4DnNs18 O63cJRmhDOCtPEKqYZPv ZHUpbEdoxi8tpI8m Ii8+DYVupDV1iGB9oU1j WnYcTvG1GOiyZ644GpHq oEVdHkptA61wP4BjrXZ+ BEIjLst7YDCbhAzg WC0psSRgSPffGs6pRGG7 OcKxCwHzZNnnL4HeMFYx zykoefqzbEE6MYZaNZFz gK47By3ejCfmKMZz cIBAxV5zmkrmg0dhjhqt DeTaUXKbFDo7FLp9JUYk kAjdQqSgCXN0TaR3NTL7 uNHtgA1rcJxlnqkf oL6gO7TnUCMgofofRe82 lH5sZiTvAvP6NNkuNdp+ X7nYSjYJNRvxW5vPMLZP BFeBGZ8FBCixmAY+ XBEzCZO4gPyvGUkvGCIa yN7bJEHxQ3h2QyTyObV8 ALcyY6PsPKXffxudKl56 qZ0aCbLnYyX0AVsw N7IngkV0PUWdtVTpVIvb EJJ0A33ok3U1ORWjNFSm FNV8dAM8sM2qdRfnhgml bGVmdDsgdmVydGlj NCneKPqjD755SFNvuGos HeR3TzVvAySgNHS6U6Oz Czu0FPAyyDkaXU8vzMIt UWbbRb2ofGsurOxu BP9xBYRoeksyQWTjfG1u PJCofJAfrEsqBE6gVLNg nslvx767WbQkQON8HQAi sBUjT7VkbC3oCfGg AHGhJYWtE3BlwELtKKmw D574UUzyMaC5KDOhgoCs T2OgICHjhWzgUaM7g2A0 Mz2jIEKTOEDeopcu dGQ+DBRnOIJ6rGsbPDnw FBGmiQ0tZOLcY3d6ZrHj KfT8GCnjO4HwWZJeaywb Vp61rY6uXmWdErU4 IGwvL7LxdrW3TKRdfMEk OJjsVYE7X95rb9E4SNFa LULqEFQ3hEM0tS1hdWze bjogbGVmdDsgdmVy nHclFQexCDgdN352FEEx cDsnPkZFTUFMRTwvdGQ+ BROuTGJ9zHqlDLuqMYDq rE0eKPJeL3f3VdBf TpZ4HPpqW8RuXQOqxfgz Xi09xL2eWlBvNzA4QEwk Y7XbjiW3FZBomMIsUKjb EDM4Y49zo5X3WWEy UTHjYYF1cMN0iO6gtIvz bjogbGVmdDsgdmVydGlj SGgwQBwmR873FQLwvJti Ak0DDO70EQ94P6Jw PjwvdGFibGU+PHRhYmxl IHdpZHRoPScxMDAlJyBz gCbpLE2wEx3gXPFxYNKg lGiofONyWsTqs3fl FUDoSHmtNW4wwOacF5Mp dQG1JQKdz3y2Ch44J19o N0MgnTK+BETbxDN9nNA1 yB4oAuZsDnW2CSpb G044UtJihLBwIlkjt0nn y8ovnNn2DhZfVJZkikTb kXanXUQ9u7JcAg48N53i IHdpZHRoPSIyMCUi CXAaiLqrex1pkW4gVy9+ YRJjmQW0nQO6fM6iHsHl HuE3TUnkS906HjBdkSEu VdgjY48qC7FqzCV+ AQXmQcr6TZDlsEmcAP9d tVTzZCmwWm8rDLP9NhFc ZuCySRjtD4ZzVJUqfzmc mfktuFG3PYUgUEEf nP09Sx1fsZgnRi0bGIBf NDC5KMAvpFQyJ0KkkW0a BhBjPLXpMWTiI9WsoBCm KItvJ903VXvaDnM5 ARGzllVpS4RzATXhpDuc JyO6d8R1Ih5SfWdmhGOq MS2dMnLtCCr1S8NfLxv7 GBVvnRuxHX2xoGRg DVzqXi8vqBkccIldFS0s YNAfnpnmw624UwVuu1fl VFXbiFCbNXqtQYD8W09x t2T0GMGnMYMsZYL9 lUR7cE5nnNjhllbkcISb dDsgdmVydGljYWwtYWxp K008OEPjcYzeLbWGOfi0 Z8LiJuf3SRYjzGwe OI8erOTwWUuyWb2imQua aSqoLV2yBBJsmjjvv726 HuJyi0ftOADefQUeIRcy EUA1W73tm7Y0CAPc OWPvMSX8wHL9hB6kxHcp bjogbGVmdDsgdmVydGlj EFdbSXfzJ978NNBkiXyt Zx4QWmw8A0MiLwd1 JYYuvUkeUO9qjDNtOOtr Pw2grYowfGpfCZ9fUUBz caszu266HxRhb9ukFNCh oBUaAYdqIOB6Q88r p6V9SABcTMSpXUO7lUJ1 nM8axKavhixsiWWwuFlv utAsaSqzDFwiCDdkU477 IHRvcDsnPlBheWVy OjwvdGQ+LK41jh27A0Ww PhlgEsk8MMCgDYA5cDH1 rX1yFZKfNFoeh1A4nQL0 I3AoweGbxf1jh1gh YXB (more content not included)... Normal [facility] .Auto Diff 04-15-2023 Auto [place] % 8 % Normal 12 [facility] Comment on above: Performed By: #### 1 [id number] #### [facility] (DEFAULT) [address] [place] [id number] Baso Abs# 0.1 x10 Normal 0.0-0.2 [facility] Comment on above: Performed By: #### 1 [id number] #### [facility] (DEFAULT) [address] [place] [address] 14506 Basophils/100 WBC (Bld) 1.0 % Normal 0.2-2.0 [facility] Comment on above: Performed By: #### 1 [id number] #### [facility] (DEFAULT) [address] [place] [address] 75865 Eos Abs# 0.1 x10 Normal 0.0-0.4 [facility] Comment on above: Performed By: #### 1 [id number], 40720986, 2840952, [id number] #### [facility] (DEFAULT) [address] [place] [address] 83496 Eosinophils/100 WBC (Bld) 0.5 % Low 0.9-4.0 [facility] Comment on above: Performed By: #### 1 [id number], 18204294, 2059822, [id number] #### [facility] (DEFAULT) [address] [place] [address] 29234 Lymph Abs# 2.9 x10 Normal 1.3-2.9 [facility] Comment on above: Performed By: #### 1 [id number], 44179616, 5144796, 9343547240 #### [facility] (DEFAULT) [address] [place] [address] 84727 Lymphocytes/100 WBC (Bld) 30 % Normal 14-48 [facility] Comment on above: Performed By: #### 1 [id number], 32001205, 0038319, 1664016730 #### [facility] (DEFAULT) [address] [place] [address] 88994 [place] Abs# 0.8 x10 Normal 0.0-0.8 [facility] Comment on above: Performed By: #### 1 [id number], 23595010, 7227510, [id number] #### [facility] (DEFAULT) [address] [place] [address] 36818 Neut Abs# 6.0 x10 Normal 1.5-9.2 [facility] Comment on above: Performed By: #### 1 [id number], 02111533, 2293568, 0946281509 #### [facility] (DEFAULT) [address] [place] [address] 95360 Neutrophils/100 WBC (Bld) 61 % Normal 44-88 [facility] Comment on above: Performed By: #### 1 [id number], 25141919, 9749478, [id number] #### [facility] (DEFAULT) [address] [place] [address] CBC w/ Auto Diffon 4 Erythrocyte distribution width (RBC) [Ratio] 13.4 % Normal 11.5-15.0 [facility] Comment on above: Performed By: #### 7 843039, 87812260, 6840403911, 3223575964, 7912693685 ####[facility] (DEFAULT)[address] [place] [address] Hematocrit (Bld) [Volume fraction] 40.7 % High 33.7-40.4 [facility] Comment on above: Performed By: #### 7 335332, 57993256, 1076095108, 5129290545, 1923914536 ####[facility] (DEFAULT)[address] [place] [address] Hemoglobin (Bld) [Mass/Vol] 13.7 g/dL Normal 11.3-15.9 [facility] Comment on above: Performed By: #### 7 472556, 99232821, 2249260617, 4759667663, 7304309778 ####[facility] (DEFAULT)[address] [place] [address] 75063 Man Diff? Auto Invalid Interpretation Code [facility] Comment on above: Performed By: #### 7 835985, 60403092, 1680330069, 8633228699, 2686362446 ####[facility] (DEFAULT)[address] [place] [address] 05679 MCH (RBC) [Entitic mass] 29 pg Normal 24-34 [facility] Comment on above: Performed By: #### 7 002898, 85364873, 3276449542, 2117290537, 7865495878 ####[facility] (DEFAULT)[address] [place] [address] 32448 MCHC (RBC) [Mass/Vol] 34 g/dL Normal 26-37 [facility] Comment on above: Performed By: #### 7 803618, 50661426, 9749722868, 5109309487, 9810356046 ####[facility] (DEFAULT)[address] [place] [address] MCV (RBC) [Entitic vol] 86 fL Normal 81-100 [facility] Comment on above: Performed By: #### 7 101745, 24180073, 1367147048, 1322684327, 6031994273 ####[facility] (DEFAULT)[address] [place] [address] Platelet 430 x10 High 138-427 [facility] Comment on above: Performed By: #### 7 871507, 84804704, 5806184424, 0237857331, 2612836821 ####[facility] (DEFAULT)[address] [place] [address] 80020 Platelet mean volume (Bld) [Entitic vol] 8.5 fL Normal 6.3-10.2 [facility] Comment on above: Performed By: #### 7 023445, 16909678, 5108774021, 6857903377, 9929166076 ####[facility] (DEFAULT)[address] [place] [address] 96777 RBC 4.75 x10 Normal 3.70-5.30 [facility] Comment on above: Performed By: #### 7 013724, 22773862, 5565617245, 2563845036, 2414664541 ####[facility] (DEFAULT)[address] [place] [address] WBC 9.9 x10 Normal 3.5-10.5 [facility] Comment on above: Performed By: #### 7 860686, 91040413, 3580796315, 5798758328, 8490449776 ####[facility] (DEFAULT)[address] [place] [address] CMP Standardon 04-15-2023 eGFR Non AA >60 Invalid Interpretation Code [facility] Comment on above: Performed By: #### 1 [id number], 90851956, 5358622, 9287059717 #### [facility] (DEFAULT) [address] [place] [address] 79737 eGFR AA >60 Invalid Interpretation Code [facility] Comment on above: Performed By: #### 1 [id number], 25338019, 9196685, 4612890428 #### [facility] (DEFAULT) [address] [place] [address] 90800 Albumin [Mass/Vol] 4.5 g/dL Normal 3.5-5.0 [facility] Comment on above: Performed By: #### 1 972542377, 68017967, 5019292, 4968317699 #### [facility] (DEFAULT) [address] [place] [address] Albumin/Globulin [Mass ratio] 1.2 {ratio} Low 1.4-2.6 [facility] Comment on above: Performed By: #### 1 538470681, 01363431, 5216378, 8783456161 #### [facility] (DEFAULT) [address] [place] [address] 43804 Alk Phos 68 IU/L Normal 32-91 [facility] Comment on above: Performed By: #### 1 902153215, 15673286, 7428871, 8491225782 #### [facility] (DEFAULT) [address] [place] [address] 38768 ALT [Catalytic activity/Vol] 34.0 U/L Normal 14.0-54.0 [facility] Comment on above: Performed By: #### 1 168287738, 60636392, 9620446, 8390948077 #### [facility] (DEFAULT) [address] [place] [address] 90243 AST [Catalytic activity/Vol] 27 U/L Normal 15-41 [facility] Comment on above: Performed By: #### 1 422890293, 48617831, 9195119, 4716839286 #### [facility] (DEFAULT) [address] [place] [address] 34120 Bili Total 0.7 mg/dL Normal 0.3-1.2 [facility] Comment on above: Performed By: #### 1 463111667, 43047869, 6325512, 7432305545 #### [facility] (DEFAULT) [address] [place] [address] 69609 Creatinine [Mass/Vol] 0.77 mg/dL Normal 0.60-1.30 [facility] Comment on above: Performed By: #### 1 404481731, 27901767, 6867082, 3596646488 #### [facility] (DEFAULT) [address] [place] [address] 04019 Globulin (S) [Mass/Vol] 3.6 g/dL Normal 1.5-4.3 [facility] Comment on above: Performed By: #### 1 637441812, 44243001, 1185014, 3885828842 #### [facility] (DEFAULT) [address] [place] [address] 31244 Osmolality 269 mOsm/L Invalid Interpretation Code [facility] Comment on above: Performed By: #### 1 081458633, 58881672, 0056552, 6766853315 #### [facility] (DEFAULT) [address] [place] [address] 02356 Protein [Mass/Vol] 8.1 g/dL Normal 6.5-8.1 [facility] Comment on above: Performed By: #### 1 717255693, 34665005, 9184722, 5638256279 #### [facility] (DEFAULT) [address] [place] [address] 09778 Urea nitrogen [Mass/Vol] 10 mg/dL Normal 8-26 [facility] Comment on above: Performed By: #### 1 559943024, 80783561, 6142283, 5866703561 #### [facility] (DEFAULT) [address] [place] [address] 59356 Urea nitrogen/Creatinine [Mass ratio] 12.9 mg/mg Normal 4.6-16.2 [facility] Comment on above: Performed By: #### 1 104720433, 34840621, 2888512, 1830022384 #### [facility] (DEFAULT) [address] [place] [address] Calcium [Mass/Vol] 9.0 mg/dL Normal 8.9-10.3 [facility] Comment on above: Performed By: #### 1 639010175, 28333919, 8292523, 9715972810 #### [facility] (DEFAULT) [address] [place] [address] 85268 Chloride [Moles/Vol] 104 mmol/L Normal 101-111 [facility] Comment on above: Performed By: #### 1 061560707, 34163257, 0404153, 9292557605 #### [facility] (DEFAULT) [address] [place] [address] 03789 CO2 [Moles/Vol] 23 mmol/L Normal 21-32 [facility] Comment on above: Performed By: #### 1 389228665, 03901687, 3713594, 3764377011 #### [facility] (DEFAULT) [address] [place] [address] 71108 Glucose [Mass/Vol] 94.0 mg/dL Normal 74.0-118.0 [facility] Comment on above: Performed By: #### 1 023917880, 48712588, 1452183, 1175332167 #### [facility] (DEFAULT) [address] [place] [address] 48517 Potassium [Moles/Vol] 3.9 mmol/L Normal 3.6-5.1 [facility] Comment on above: Performed By: #### 1 616084895, 07563136, 8867083, 0505983255 #### [facility] (DEFAULT) [address] [place] [address] 21653 Sodium [Moles/Vol] 135.0 mmol/L Low 136.0-144.0 [facility] Comment on above: Performed By: #### 1 581451744, 82787223, 9760906, 6229236263 #### [facility] (DEFAULT) [address] [place] [address] 11431 Anion gap [Moles/Vol] 11.9 mmol/L Normal 5.0-19.0 [facility] Comment on above: Performed By: #### 1 821623802, 40610346, 8766222, 5891336498 #### [facility] (DEFAULT) [address] [place] [address] 02528 ED Clinical Summaryon 2023 ED Clinical Summary [facility] [address] [place] [address] ED Clinical Summary PERSON INFORMATION Name: LIA DESAI Age: 22 Years Sex: FEMALE : 2000 MRN: Acct#: Visit Reason: Vomiting - ; NAUSEA, VOMITING, 6 WEEKS Arrival: 04/15/2023 14:48:29 Discharge: 04/15/2023 16:38:00 LOS: 000 01:50 Check In: 04/15/2023 14:48:29 Checkout:04/15/2023 16:38:00 Address: [address] [place], [place] [id number] PCP: ROBETR MARRERO PROVIDER INFORMATION Provider Role [...] EDUCATION INFORMATION Instructions: Nausea and Vomiting, Adult, [id number] Follow-Up: With: Address: When: ROBERT MARRERO [address] [place] [address] Within 3 to 5 days DIAGNOSIS: 1:Nausea/vomiting in Patient Understands: Yes - Patient/family/careg iver verbalizes understanding of instructions given Comment: Normal [facility] ED Patient Summaryon 024 ED Patient Summary [facility] Department [address] [place] [address] PATIENT DISCHARGE INSTRUCTIONS Patient Information Name: LIA DESAI Age: 22 Years Date of : 2000 Reason For Visit: Vomiting - ; NAUSEA, VOMITING, 6 WEEKS Arrival Time: 04/15/2023 14:48:29 Primary Care Physician: ROBERT MARRERO Attending Physician: Yassine Maldonado MD Comment: Visit Diagnosis: Diagnoses This Visit Nausea/vomiting in (O21.9) Vomiting - ([id number]) The Pharmacy at [facility] is open Saturday through Saturday from [...] alcohol and/or drug addiction problems; contact the [facility] 29/10 Crisis Hotline -Text [phone]. If you received any narcotics, sedation, or [...] With: Address: When: ROBERT MARRERO [address] [place] [address] Within 3 to 5 days Medication Information: The exam and treatment you received today in the [facility] Emergency Department were for an urgent problem and are not intended as complete care. It is important for you to follow up with a doctor, nurse practitioner, or physician?s inventory assistant for ongoing care. If your symptoms [...] so we can reach you if necessary. [facility] Emergency Department has provided you with a complete list of medications post discharge. Please inform your flat spring assembler/provider of your visit and for further instruction [...] other disea (more content not included)... Normal [facility] Extra Greenon 04-15-2023 Tube Collected Yes Invalid Interpretation Code [facility] Comment on above: Performed By: #### [id number], [id number] ####[facility] (DEFAULT)[address] [place] [address] ED Clinical Summaryon 2023 ED Clinical Summary [facility] ? Urgent Care [address] [place] [address] Clinical Summary PERSON INFORMATION Name: LIA DESAI Age: 22 Years Sex: FEMALE : 2000 MRN: Acct#: Visit Reason: UC - Nausea; NAUSEA Arrival: 04/12/2023 09:25:14 Discharge: 04/12/2023 09:56:00 LOS: 000 00:31 Check In: 04/12/2023 09:25:14 Checkout: 04/12/2023 09:56:00 Address: [address] [place], [place] [id number] PCP: ROBERT MARRERO PROVIDER INFORMATION Provider Role [...] With: Address: When: ROBERT MARRERO [address] [place] [address] Within 3 to 5 days Comments: Diagnosis is history of nausea vomiting, during . We provided you with medication help with nausea. Keep hydrated. Eat light, over the next 24-48 hours, soups, Jell-O, avoid heavy meals. Follow-up with your own primary care provider, or your COMMERCIAL DESIGNER physician in the next 3-5 days, for reevaluation. Return to the emergency room for worsening symptoms or concerns, worsening abdominal pain, worsening nausea or vomiting, spiking fevers, acute shortness of breath or chest pain, or any questions DIAGNOSIS: 1:Nausea and vomiting during Patient Understands: Yes - Patient/family/careg iver verbalizes understanding of instructions given Comment: Normal [facility] ED Patient Summaryon 024 ED Patient Summary [facility] ? Urgent Care [address] [place] [address] PATIENT DISCHARGE INSTRUCTIONS Patient Information Name: LIA DESAI Age: 22 Years Date of : 2000 Reason For Visit: UC - Nausea; NAUSEA Arrival Time: 04/12/2023 09:25:14 Primary Care Physician: ROBERT MARRERO Attending Physician: Oneil Salomon Comment: Patient Education With: Address: When: ROBERT MARRERO [address] [place] [address] Within 3 to 5 days Comments: Diagnosis is history of nausea vomiting, during . We provided you with medication help with nausea. Keep hydrated. Eat light, over the next 24-48 hours, soups, Jell-O, avoid heavy meals. Follow-up with your own primary care provider, or your COMMERCIAL DESIGNER physician in the next 3-5 days, for [...] these instructions at home: Medicines ? Take wumt-fqk-tqxdptt and prescription medicines only as told by your health care provider. Do not use any prescription, qfpy-ynm-pdvkdgd, or herbal medicines for morning sickness without [...] to yo (more content not included)... Normal [facility] 024 Urgent Care Record [facility] ? Urgent Care [address] [place] [address] PATIENT DISCHARGE INSTRUCTIONS Patient Information Name: LIA DESAI Age: 22 Years Date of : 2000 Reason For Visit: UC - Nausea; NAUSEA Arrival Time: 04/12/2023 09:25:14 Primary Care Physician: ROBERT MARRERO Attending Physician: Oneil Salomon Comment: Visit Diagnosis: Diagnoses This Visit Nausea and vomiting during (O21.9) UC - Nausea ([id number]) If you received any narcotics, sedation, or [...] With: Address: When: ROBERT MARRERO [address] [place] [id number] Within 3 to 5 days Comments: Diagnosis is history of nausea vomiting, during . We provided you with medication help with nausea. Keep hydrated. Eat light, over the next 24-48 hours, soups, Jell-O, avoid heavy meals. Follow-up with your own primary care provider, or your COMMERCIAL DESIGNER physician in the next 3-5 days, for reevaluation. Return to the emergency room for worsening symptoms or concerns, worsening abdominal pain, worsening nausea or vomiting, spiking fevers, acute shortness of breath or chest pain, or any questions Medication Information: The exam and treatment you received today in the [facility] were for an urgent problem and are not intended as complete care. It is important for you to follow up with a doctor, nurse practitioner, or physician?s inventory assistant for ongoing care. If your symptoms [...] so we can reach you if necessary. [facility] has provided you with a complete list of medications post discharge. Please inform your flat spring assembler/provider of your visit and for further instruction on these medications. Any specific questions regarding your chronic medications and dosages should be discussed with your primary care physician(s) and/or pharmacist. New Medications [facility] [address], [place] [id number], [phone] ondansetron (ondansetron 4 mg oral tablet, disintegrating) [...] is not kn (more content not included)... [facility] Coding Summaryon 03-06-2023 Coding Summary HTMLBase 64 JfmkpotiPJm1iBd+PGhl YWQ+JZ1PLCRmC09drEMp cF0nN3WUJJaZQenoBPNR AWuJJiUsgsHaGZ0xnDMc ZXJu IC8+XW7jSIEhBrdysVUp q0S9gPG1R03nzk9oRBbe hLC4DCQuNyRomvlde1pf wPg5KPlhIpqfEbHt RUAfwR86SKD3hM06Lf63 nBTqtGJbh5btxFn5FoIk UFSlDKQ1aVwqRLsui7An HIGpO67kxOMhp3B3 IGNvbGxhcHNlOyBlbXB0 jX2oMRbfochuo8qiratu Abo2pg26hSSzt3W6vGI5 B3CeicS4YUSguAPj NwvlvIMOmY4xrguhb8gy ceucVsLoZAWtQJw1OTg3 PTPnpXdsMrUvMR16ULV5 EWGecbFgM7CfQUIu qIelXsB0q4X8Lo1FS5HM TvheH4WEVUCSSZbboNG+ TT94vw47U8WqSvpmCoe3 NJFmNXL1cKD5fS5c XRJqYQntg3Y8aVH3W5Vo wyHhfx1ml2orKLPcEDvf R14voDXaq6Z6WGBbaGT3 HTYnsTvrJjMfmH63 Oyc+IESaeBnqf8KaUfjo s2uke7ddpMj3HhdfHYPl mrErqWtpKWQ0m4KyFh4c GSWubPN9oSA7vB0n QeCnCvT0SOnhN138MbJe rHSnAalyW71mY9PlqNF+ AEYcLzw0KMBarEvlNK7k O8OzSHCkqwtcwPCy eJnqJX5rLCXdqhzlTVFi wV4iPSJiN2g7ZhYmHiG4 FZdiX7JxGOOenrdvQu57 yQ8dKcYcAeN4RJbm U7NudbQ3HXSvkYNtBNqf XOV7A27cx0S5DDVzSVOv XJJ4xNS5jL4ctBftlhqz bGVmdDsgdmVydGlj SIoqSLttR814JMFarPse PkNvZGluZyBEYXRlOiAg MTEvMjkvMjAyMzwvdGQ+ JBXiDPL2jScqXOTv rDFxJZxfLv4cyXcdoIua IB0uSUVhblbpDDWvoD4c NCZmjJXlwAimML0bWXMg ekfak425LhLhGRF0 QHYqxAGbI4ArnQ9yIvQf OJRbCCYuR7CjyHQoMXyk X057VJwbYcJ3UASxpnVc V4NnFZPfuQngPdQ2 n0L6Bk9Zf9YbjtpkV4Eb gJShYyAaDqlkNSf0T3Dh PjwvdHI+TN25AYJaMV77 CDk8SSG4eXmmTGqo BLBkX1WgwM9nTxDxYZIr ZGRkOyc+PHRhYmxlIHdp ZHRoPScxMDAlJyBzdHls AZ9fMo4zYERxQMGb mWnvvYRgMmLbw1jdKDJn DCdmYH3kfBrgU1RepOR2 DIXlb3e6Ri58G28xO7Oh dXA+QGIqlOO7pPJ7 wV7kZkQxBhO6XBvcE111 NbWeuALpCxtcf2iuz5tj wXn6LzZ6LMSwplEewFes WBV1v4TeLo29E43h IHdpZHRoPSIxNSUiIHZh bMcocu6fhS6yLi2+PGNv rYL2bFU8oW9eDzSbKyG9 REdaO130BfScbKJh Sxhes0wti0ejaVq8MtJj MHVbnqZtzCtxWYS2q9Co Ae48V5KwbMkpj7DsTbz3 lo33zQJjv5Y3uVO9 Y5EnOCFggpceiKIydRtg WL1rTPHgansgQUEjrF6f WHAmV7l7EbHaYwH5AWmg Y6NlevK1DRMnpLSl KUSioTKZbR0jwmjjr7fb xxhvTmTuANQoECf1LAb0 TXPjmPbaJdKpBDZ9NvA9 JUA5tRZnhN7elRop efbiuP4aSud+QMH1uOFe lDVCFW0bDozqxKS+PHRk IAT6cOvdSAljZAYqwN3j FJGwR1j2GrCjYnI5 KFfeP9ZickS3QDIvjUCq MRLfwXIMnS5gymyvu4wf jfgoQoEgSOLqWKh6WPr6 LWFsaWduOiBsZWZ0 JaE7ZTM5dMVkzY6krBub wfvpsU9jWbs+QmlydGgg FFL0HPj9D9AfBje0RDAr nMqsMT8qxCRoBGax Og6vcQhekQylGU6cGDXk yuzhn452YdNap6fiAXNr vWFtYVpoUCR1E24dl0O1 GOVwMIFeYOK6yWJ3 xP1kvTtalkqcwAIdiPwu nuScqJcqQKyvHYgjI617 RFOzrEkaNqGfJOt5V5Vk Ljz9FUQfhYddRS6n nWUbVVkmMz2qvAupbFxb IN6fDHPasetqq278HuQe s5xzXSXtwECqTLvpCID9 T85sm8Y8CQWnOXGk PSO9sSX7nV9irTkmxofy bGVmdDsgdmVydGljYWwt FTdtP631GKFdiWnqYhKe iBi4W9KfYje1ESWb zWkiPM1xwUCiYXfhLw5v oOroiTuwVD0jWZPpywzo o104AvAph5xiMBGitJXy ASszFVQ1D24rk7D0 PNCvPPIxWEX1oBE4uS3a bGlnbjogbGVmdDsgdmVy hQicFCkoYDcbB044AADn cDsnPlBhdGllbnQg DGiwFEu9Z7GySmlvcGX+ RR91FDCqBW62kSDryRDo a2bbbWl3FpJzBSNuJDV9 qMcsVOzlu4FcXLAt E48niUCcm3F7NAQueCvq eZOmTzUkrTS4jF9cDFll wofvx2psguvdKcepw0yc jm92jO26E12gWCtp ZHRoPSIzMCUiIHZhbGln is9ziK5tVr8+PGNvbCB3 aRC9zW4pWNOoTqT7NPdh N761LtHerONfFthe q9njp9cgoSy1OdW4BTQe uwAghKsvEDA2c4FvFh41 N51pHTgbKLCjKEKyEQLk FNUhjKvygx5fwJ0v Ii8+SXFlhUR7jRQ3yG0l DsDtBcP5UNclD550AjYg pAMuSxsbC96bX8EywNX+ YHZcDtr5FHInkBiy NT2mjJSaTCawOs6xUKN3 PeTqKxRdFAosP1IoKGDf zkhczxsplSI1EPGfRGBy wJ93Kq0vjTiaUJEd bCZCvN6jrzzed6mrjsxh FgIqASBsIFv1KAx4MLDh sAkkQzDhKXN5IeL3KSX8 qEQhnA2jbCgtvorw fQ5lO6IgFLVnuiycJv26 eB8zYiEsUsJ8OWxlJpg+ A6uLMmBSSTouG0wJXIQP GVlYTX2GKUbszQC+ SUGrIOK0iCzfWVzlHWKt jE2zCEEbV9t7UdWyBeE4 SJzkN5RqXPStvllxVo58 pM8uVjQeSiL9SEsg B7TdsvH6ISIzaVPsBXyu LSV8U66cm9G5XLHoSXRc FLM3iOK3iH4nyZekghws bGVmdDsgdmVydGlj IXidWWteY933PIVbmOzm TgW4QaTdKeWxLZY6E4Hm Udy5ZULfwEshZN6odACr KQdtYo5bxPiquNvn HG7aSBOujrapBLNglE0j XOYkjDTgyNjaXY8qNDMg fgpvg386BzXuMLU9ZPAd tAEiV4SwxQ9iNdEe RZKwIKZiC5FvpPJeSLph I550WCrlGuY3ZVCaygPk K0UfVMEsdXyyMiI2k3L7 No9nSRQAXUQmodbz dGQ+HSVuMSS0eYmcLKtg EDXjvI9sRAUtA1i3GtPd SsI1YCwoS1RfPAXadfyy Ri01wK9xOaVjUhQ2 UEphQ9BkxkZ1HSCbwUEt XGxgRVN2X55bg0R1AZMo LCZuTVV1lKL7hS9mmMjq bjogbGVmdDsgdmVy tUqkDUbkJXnhT781UPSb cDsnPkZFTUFMRTwvdGQ+ PRXaWLU0uThhCXzcKBQe rZ4mPWLyE9e6VrAc XfN5PRwhF2TqKQMmjqdo Uz96uO1cYhWxByR8GNvd X9WhjkP9KOJxfGUsLCtj RXB7K26oo3O8QIHk PGCcGVU8iAK1uI6gwDwe bjogbGVmdDsgdmVydGlj TUjcFIhtY374XLWiuYjy DhLsHXSuCD4xpFow dGQ+LN32cj41P5KtTwjl Wof5EYYeLRP3bAN1vW3f TFLiQVikn5W7xNN5D8Ne wuNnij1zh9hiUPPv TUyiK13cvBLim3L0ZFNi sRR3BTBynLqkZfAkeI10 Oyc+MGNqoUddw4ZxWyxc p8kmk6ritDw2CpIv BRHqnsUumHeoNZG8h7Qx Jk70Z34iXWttNIXsCOUw UZHsPCQgkInuix1edE6r Ii8+GBQvgEB8hLG7 mJ4dOtAfFtT7ETgtV419 FvVmeMBpBpzgg1wvn3cw nBs9MoErUHBakqBykGnq VNO3y7KyLh90N4Xp rOymu7WrOzd7au51yITc g5B0mQK1J5MrJWOurqqt tQDviVhgJO8jRNWmacnq FHCrnN9xZDVqX9z1 EbMtLjG2TWciB4VvbzJ4 KKNejXYeXFDteKLFaG3s umupc3skslubXbZuACTp EGz1GLm7DHTnpAxe VhYtOEW5JhW0HUY2kBDg gT1wwMlgmxkidE7oZdc+ RTc8m0qlnBSdAP5yzGM4 NF73BZ53eGHkw4I6 dTV8U2XaHPYznidkcsuz sRG8RBGcEQItcO05Qt2d mClkIh0uAGBrLSA0ACDs mPXsC9CpqK2zSoXt AGVfSNIjZ1IxqILwBMth L550BDkeUbG2ZULxzqLt L3VhUGBlmOfzJkE3l5M2 Jk8GGH33MT82NE47 nZHja8V1tBT7M8PqWSZe egrmityifKZ4RQDhOQJc qI08Ef9liXbgPh7xDIRi ACK7JZJhaIDfE0Ey iV8vShTiXTUeUZGxS8Sc uONqMFyyP051RWhhHhJ5 BYDcrvLbJ9JrLSLyfTue RiE6y4L6Lo9KAv22 DB34KQ57fHFbz5I7vQO1 F7QkHUCkmhxjqgjbjPL1 QBCkHLGscM30Ta9roZfj Cw3zZUZcNFQ5RRDc rYZkL6VlqN8nBaDlHHJk ACZaL3QokKKdGJxvR847 UPehJeW0FYZtapIiF0Ch CCAfhHqnEyG2o7F6 Fp5HNHydwbn8J8NjTrtv dHI+EW53VIOyQE97uZVn mZJph9srsOd9IwYpOQHj URA9xLiuARajp2Pl ZXI (more content not included)... [facility] Coding Summaryon 03-05-2023 Coding Summary HTMLBase 64 GksmmjbqULl3fUf+PGhl YWQ+BA6IYXMsB16unRTv bN3bM1PXPDsGSiiuMZTV FZtMMtPppvYzRC5joJOc ZXJu IC8+JE6wZBTbNzenyTDq l0Q5xZM8T63rpu9hFVsm bYN6NAAhAhOlqfysj3gk cIy6UBpwTtosCqRj NSThiT13ZQV5cF51Kb77 dUThgMWxj3wvdMm1VlLu IUXxXHX5yXzlTFvgq5Om KKQqQ36zrYYpb0H4 IGNvbGxhcHNlOyBlbXB0 pH3fISifiunvz0cxhkos Krc2bv80lAJnu3D6xZZ8 O3SkoeW7VOEvcWVx VhgoqGGEpE6kqxosg4ik beyrQtGhDNMfSKf2DCq8 MAEuzZntQzRcCE95TWN9 TNYykyWgA9KnMEMb nIqyUnJ3c4K8Ns5IB9WV KhdrD2LGLFHWTTqrtYF+ QC19hl00W0MlNutnPqv2 SCPlXVW7tQN3jV9h AXToGBvrb0G9lNQ3N6Oi ayXwvp9sa2nxYFOmKSsm G43frBCgi3Z0KKYoaPA7 GNLgyQsjPqHrbQ51 Oyc+DARmlOdap0QmFwdm d1mtb0bliVj4LccoKJBe qdDywWqfTXT6i6CkAv8e XMJaxFV1yND1jS9h KxUtHxC7KWjmW788AeMl uXYmJbhhY67pB7GsoSX+ TQPhPys7KSTgtMieNU4z K5VoJNWwhyisqQKy gWllCB4xXXZihirvGHLz cG8uCXRvT4n9OgPuPfS6 SJxjT6UlHDOriviwEj71 wN7eUbUdGxJ4PRnr N5HaztA8MIMsgLGwBPax ONW8P06bi6U1ARVzEDBk OXE2sED5nX2akZtgjtvg bGVmdDsgdmVydGlj TYbcINfkS225IYUgvTtd PkNvZGluZyBEYXRlOiAg MTEvMjgvMjAyMzwvdGQ+ JYSyVNC0kRllNCLv yMSrQYfhGq9zmWxypZvg SG5wZLYgwdcgFTVsuC4y YCUgfNKywOgpIH8vDHPm clvqo364TyAsQNK9 VTIuqYHfE8OdcN7dZmDz DJKtWROeY2DqhZSrSMti U126OYgeXuY7EXRbefTg E0WzEUUuyAncKbG0 s5H3Ky5Xd7VallrjE6Xu aDQhPpOkAucdUBk8J9Tu PjwvdHI+IF30QXHgIR77 YPn1FXT8tUisAIpt OWIvJ1WlyO6oPvKxOESd ZGRkOyc+PHRhYmxlIHdp ZHRoPScxMDAlJyBzdHls HK0oWw5nBKAvMOMy lVygqTSlRkSdq9jnPTMk VXrePU0wlCleR0MaqIE1 LSUxz3l2Ux17Z22tV0Zm dXA+CDKapQR3oYI0 pM3tVhApShJ0AAwmU492 WzYsoKFzAqgss3uab9aj wMs8CxT0NLAazxGiiDgs GLY7a7PxRh55K57p IHdpZHRoPSIxNSUiIHZh iChsnw1zaB4xCv6+PGNv oFU7iBI0yB5hXeLdWdA6 YCmfI733DwOjcIDk Xbrjh5kac1rxqFt7IfKc DPEkidGjjSxoDFV6n1Nf Aa45Y9QjhKnja0TnXgk7 al64fOKgk3Y7vWC2 H5YxISMmrjcpmKTnxFlq VD9fNLPmirxuRDKmqV4j BDNnV0f1NpUyNqX3GZiv Q4KwfwH8PLUqdPOp HYCjxPLKoD0mvilui1bj ipmoTcKsRDHyVFo8QRc5 BDAigLlgCmVvSYO7LgV1 ZCG3uBYzzA9waGlj rpxokK6pKwb+KNF1wBTu mKEDBL2mStegyBE+PHRk TUH1mZdhNAapUCXtiL5p HVTxI4d3RlEtUsR3 SDzhD9HbsaZ6HMSksUUd AYFtvUGKmN7kcnmcy6zi izhrReDwUGWdJQa4ZWq5 LWFsaWduOiBsZWZ0 ZhC2XKL1jHImyP2cdYvj hlrvjT3uRjt+QmlydGgg EHJ6NUk2O4ElMxq6VPKj pXlwHG7nhVUhGDri Mq7guRmssGmtEE5fVOIs ecpuj810IaVfz8lePHHc qUMwSPzyRSD6W23uj8Y5 MBJzNYFkQRP0oZP4 sB5swKrgfarwxQBliCgw jrUutBuuIGrvXEmyN746 XQZmfSjkIhHeGYm0J8Ac Klt6NFQwyWluEW5m oNKxUNyxRs8plBfpbLlc LQ6gPQPinuhrq579SqZk g7azWPGqnZScIZfgPCJ4 K52qy3M3CZNwFESm SID6wFJ3jM7uaFtqocmq bGVmdDsgdmVydGljYWwt SMgeN808XVChwRtgDhJx yKp1W1HiPby9VFIc kLoxMQ9ocOTzBHigSy7d fLonuOkfVK0kTUEtcwbp n425DbFdq0dePBRulWAd PVlaVCE8T00yf2A8 YVUsFPOuKBW0iYD0gB3g bGlnbjogbGVmdDsgdmVy nJxxOFwfGLskR245UFAp cDsnPlBhdGllbnQg QJguXTa6V2SkIdcqwRZ+ BD01BOMdWP99tTRrxHNf y4okxTo6UvRsDCOsEHK6 oFicBNuhx1YqCQGn P86glWVbi1T4GUSvvVpa vHEnEwIxmGA6iG7pHDxh teaak4smcmhyRwbfi8dd nb80eZ52S98gNWeh ZHRoPSIzMCUiIHZhbGln dl5duY9sBe0+PGNvbCB3 aTI9hC4dSMRtNbA5GNzr I099WvLttHBtDhhu i4qya4wvuLm0JfQ0KXVu qkKlaXowTKO9i5MrKe52 D39gUTbrRIBwYTXiPFNj UWNhfAoujs1krG6w Ii8+YVBbeWT9lFK3vV6n NvCkBqP4NIqtB405PjFw lEWjVoveK57dQ2UrcWV+ HXLrPwo5HCNvuVer ZJ0djMAxHQgjBn7mXKY0 YjSeDjMnPIjbS2RxLSBb jhuxfejydEL2VOIyFWZu wY08Cv3gmIbtDDIq mDVXyB2kedcqj3wrotdq BmOkQXDkFDs7FSx5UPLy pJetRoZjRGA4UrZ6WTZ4 vEXvhH4jaTnuxceq hO4lG0HxBTJjqgypDa22 fS5jAwKkFlF8XOvqWrg+ E0wQEsMKLYnjF3bWCHHR YDkUAS8YKJuttEL+ OOKfTSL9bCcgMGhbJBUl eX6wDKQaN0e6SmLvMkL0 TYqdV7IaRPFmkzkjWb70 qH1lMnJnOpR2ZPxl O2WjfmO8UUOtoUCvWXhb EUQ2N61br3R7MZDzNBDx PWO9dYF3wG4nrHnwuhbb bGVmdDsgdmVydGlj XUopDHzfI554EOXkeMdz IcH2VrLpIbYgVMC7R8Sr Toa0GFYlfLtiIA9tcGMr IAitFp8mxJxbvLrp VU6xSQRsrlobCTTnmR0j TNTouNHawDtwQB8zJHDw yqzjy945WtFtCZE1JOYw oJHuT0GsxL0zUzIu JADlXCZaF5UhrGOuNUgh Z630WKkkHhO5UXPqupDc T4OuHWKioKzhMeB1w4N4 Jq6fYQAXHYWoyotn dGQ+DYTeDHK7mYreQHux IJXoaK3dLTMpW9o8RiWp NfK0WHxuV1TxRNYykzww Fu51uO5eYxDuEpE5 KFuhX8AlzkW3KQTcgCEr LTwzZOJ3B46ja0G5MYZt DUGpIRB0vWB7nV6nnBpd bjogbGVmdDsgdmVy kVrdLLqsJZtqB101FIBk cDsnPkZFTUFMRTwvdGQ+ ZORkULC1tCenFGypPSKi kH2sXMKcQ3g8OdZc PsW7BZzoX3BsVRXlaogr Gn13bI4vIqKqAvC4KQlh E7FrcwC2THIyxZNoVEal KVU5P99qk2V6EMPw QYLyPKD8fQK4aP3mkNmm bjogbGVmdDsgdmVydGlj FKutFZbpA717CJHmzIqu Qj8WAT96XQ48P6Rk PjwvdGFibGU+PHRhYmxl IHdpZHRoPScxMDAlJyBz vMfsXD4nXy7qLWAqIWVq cDmqqEZoBtIco3ri KSJfAMibNY6imEmjE5Za fKL6QSAwj6y2Bh04T31h L4BrrFR+FZUhwEN0qTU3 sT3vPfEaWuL6UGvf L513RgDyyKWtGjojm6sd v2rweCq0BaViBDBfqnEi vNaxBSC2r3JrRf44R95r IHdpZHRoPSIyMCUi FGOhxQohqx1lhE6tAn1+ FFGmeCR5rFS5kK7dIjVq AyE0UKtpJ869VjXukVFa LioyH37rH2EehQX+ BBNgVmo5BQXkhLwxEB5b tPMoSOemMb4vOFH8RxCq DsVtWImuL9LuMODcvoth vdbonWC6NQVdDQFu xZ10Iw3saYwlLm2iWNGm HFU1LWUwdOAmK0WoqT4f VvUiXUSwVXKkM5BgjBOt VCzjU307OGvtUsR5 DGAlniUaF1RpPGCsmTld TbW1c6J3Ow1ZxXrntNDh JY8oKkVrUHh5K3EmVuz6 REJgiAgbOH5slNPj RQmwAs8ybGfwzCwsOJ5j MDKgqqxxp328CpBho9gi XTYtaFZrDLibEQX1I00j l5G2PAUkUZEtDAL8 pLB5xQ3nbCwqrzhqqQGa dDsgdmVydGljYWwtYWxp P766JTWecBwvWxFMGfb6 K7JfFkb9QEUvzDwd QK2eqEDfUVtpKx0mbBkj eGtyZM7bTLGpebpkq227 JlQvb3ziRUNazKOlZNgt EQY8Y73kj7B9LUDj ESPrZZT2aUN8hO3ifImd bjogbGVmdDsgdmVydGlj MHpiCQtfV827RQYjaIue Wx7UVys4H4FvXjk0 UGHgoWksIC2jaVVnRKmo Oj1lsVgisGssAC2kDHGd bmddh045YlMhg5srJOAr sRViWPbuTSM8S08e i0Z0BHBjWZVtBZJ5eGZ0 zN1boFkyjywssHKgsOpg ctNleQuhSXqdUDdbL941 IHRvcDsnPlBheWVy OjwvdGQ+WG83ss55D0Ze MiquEmb7MCLsZWS7tUL4 zX2fDWCdSGazq6W4lNK3 Y4RojyXrfd7se5mr YXB (more content not included)... Normal [facility] C Throaton 03-03-2023 C Throat Ordered by Discern. Normal throat jonny isolated No pathogens isolated [facility] Comment on above: Performed By: #### 6 [id number], [id number], [id number], [id number] ####[facility] (DEFAULT)[address] [place] [address] .QC SARS-CoV-2 (COVID-19)/Fl u/RSV (GeneXpert)on 03-01-2023 Internal Control Pass [facility] Comment on above: Order Comment: Order ed by Radha. [[email or web address]] Performed By: #### 6 [id number], [id number], [id number], [id number] #### [facility] (DEFAULT) [address] [place] [address] COVID/Flu/RSV (GeneXpert)on 03-01-2023 Flu A (GXpert COVFLURSV) Negative Normal Negative [facility] Comment on above: Performed By: #### 6 [id number], [id number], [id number], [id number] #### [facility] (DEFAULT) [address] [place] [address] Flu B (GXpert COVFLURSV) Negative Normal Negative [facility] Comment on above: Performed By: #### 6 [id number], [id number], [id number] #### [facility] (DEFAULT) [address] [place] [address]5552 RSV (GXpert COVFLURSV) Negative Normal Negative [facility] Comment on above: Performed By: #### 6 [id number], [id number], [id number], [id number] #### [facility] (DEFAULT) [address] [place] [address] SARS-CoV-2 (COVID-19) RNA MILY+probe Ql (Unsp spec) Negative Normal Negative [facility] Comment on above: Result Comment: Perf ormed by PCR methodology. Performed By: #### 6 [id number], [id number], [id number] #### [facility] (DEFAULT) [address] [place] [address] ED Clinical Summaryon 2022 ED Clinical Summary [facility] - Emergency Department [address] [place] [address] ED Clinical Summary PERSON INFORMATION Name: LIA DESAI Age: 22 Years Sex: FEMALE : 2000 MRN: Acct#: Visit Reason: Cough; Throat pain; COUGH, SORE THROAT Arrival: 03/01/2023 14:12:36 Discharge: 03/01/2023 16:04:00 LOS: 000 01:52 Check In: 03/01/2023 14:12:36 Checkout:03/01/2023 16:04:00 Address: [address] [place] [address] PCP: Provider, Unlisted PROVIDER INFORMATION Provider Role Assigned Unassigned Soniya Strickland LANDSCAPE MANAGER Nurse 03/01/2023 14:14:28 Tom Smith DO ED [...] verbalizes understanding of instructions given Comment: Normal [facility] ED Note - Physicianon 2022 [...] Resolved Disease caused by 2019 novel coronavirus ([id number]): Onset on 11/23/2020 at 20 years. Resolved. Comments: 11/23/2020 CDT 16:07 CDT - SYSTEM Problem added by Rule (IC_COVID19_AUTO_PRO BLEM) following 2019 Novel Coronavirus (CoVID-19), MILY L from Nasopharyngeal Swab collected on 22-NOV-2020 16:44:00 EDT tested positive for COVID-19. no history (135704401): Resolved. Contact dermatitis (83805361): Resolved. Pharyngitis (9190450695): Resolved. Cough (92607922): Resolved.. Surgical history: Tonsillectomy and adenoidectomy ([id number]).. Family history: No family history items have [...] any worsenin (more content not included)... Normal [facility] ED Patient Summaryon 023 ED Patient Summary [facility] - Emergency Department [address] [place] [address] PATIENT DISCHARGE INSTRUCTIONS Patient Information Name: LIA DESAI Age: 22 Years Date of : 2000 Reason For Visit: Cough; Throat pain; COUGH, SORE THROAT Arrival Time: 03/01/2023 14:12:36 Primary Care Physician: Provider, Unlisted Attending Physician: Tom Smith DO Comment: Visit Diagnosis: Diagnoses This Visit Asthmatic bronchitis (J45.909) Cough ([id number]) Throat pain (294657312) The Pharmacy at [facility] is open Saturday through Saturday from [...] alcohol and/or drug addiction problems; contact the [facility] 29/10 Crisis Hotline -Text 7CTEZ jf 750916. If you received any narcotics, sedation, or [...] and treatment you received today in the [facility] Emergency Department were for an urgent problem and are not intended as complete care. It is important for you to follow up with a doctor, nurse practitioner, or physician?s inventory assistant for ongoing care. If your symptoms [...] so we can reach you if necessary. [facility] Emergency Department has provided you with a complete list of medications post discharge. Please inform your flat spring assembler/provider of your visit and for further instruction on these medications. Any specific questions regarding your chronic medications and dosages should be discussed with your primary care physician(s) and/or pharmacist. New Medications [id number] [place], [place] [id number], [phone] albuterol (Albuterol (Eqv-ProAir HFA) 90 mcg/inh inhalation [...] Acute bronch (more content not included)... Normal [facility] Strep Aon 03-01-2023 Strep procedure control Pass Normal [facility] Comment on above: Performed By: #### 6 [id number], [id number], [id number] #### [facility] (DEFAULT) [address] [place] [address] Streptococcus A Negative Normal Negative [facility] Comment on above: Performed By: #### 6 [id number], [id number], [id number] #### [facility] (DEFAULT) [address] [place] [address] C Throaton 02-28-2023 C Throat Ordered by Discern. Normal throat jonny isolated No pathogens isolated [facility] Comment on above: Performed By: #### 6 [id number], [id number] ####[facility] (DEFAULT)[address] [place] [address] ED Clinical Summaryon 2022 ED Clinical Summary [facility] ? Urgent Care [address] [place] [address] Clinical Summary PERSON INFORMATION Name: LIA DESAI Age: 22 Years Sex: FEMALE : 2000 MRN: Acct#: Visit Reason: UC - Sore Throat; SORE THROAT, CONGESTION, BODY ACHES Arrival: 02/26/2023 09:55:01 Discharge: 02/26/2023 11:28:00 LOS: 000 01:33 Check In: 02/26/2023 09:55:01 Checkout: 02/26/2023 11:28:00 Address: [address] [place] [address] PCP: PROVIDER INFORMATION Provider Role Assigned Unassigned Errol Ortega ED PA 02/26/2023 09:58:25 Birdie James LANDSCAPE MANAGER Nurse 02/26/2023 10:17:32 VITALS INFORMATION Vital Sign [...] with cough Patient Understands: Yes - Patient/family/careg tori verbalizes understanding of instructions given Comment: Normal [facility] ED Patient Summaryon 023 ED Patient Summary [facility] ? Urgent Care [address] [place] [address] PATIENT DISCHARGE INSTRUCTIONS Patient Information Name: LIA [...] to help relieve symptoms, such as: ? Cnga-teq-uikhvyl cold medicines. ? Cough suppressants. Coughing is [...] other clear broths. General instructions ? Take sgkk-dxl-qiygfit and prescription medicines only as told by [...] infection to other (more content not included)... [facility] POCT Rapid CoV-2 (COVID-19) Antigen/ Flu A&Bon 02-26-2023 Influenza A POCT Negative [facility] Comment on above: Performed By: #### 5 [id number] ####[facility] (DEFAULT)[address] [place] [address] Influenza B POCT Negative [facility] Comment on above: Performed By: #### 7 [id number] ####[facility] (DEFAULT)[address] [place] [address] SARS-CoV-2 (COVID-19) RNA MILY+probe Ql (Unsp spec) Not detected [facility] Comment on above: Performed By: #### 0 [id number] ####[facility] (DEFAULT)[address] [place] [address] 89284 Strep Aon 02-26-2023 Strep procedure control Pass [facility] Comment on above: Performed By: #### 6 [id number] ####[facility] (DEFAULT)[address] [place] [address] 31301 Streptococcus A Negative [facility] Comment on above: Performed By: #### 6 [id number] ####[facility] (DEFAULT)[address] [place] [address] Urgent Care Note- Provideron 02-26-2023 Urgent Care [...] Resolved Disease caused by 2019 novel coronavirus ([id number]): Onset on 11/23/2020 at 20 years. Resolved. Comments: 11/23/2020 CDT 16:07 CDT - SYSTEM Problem added by Rule (IC_COVID19_AUTO_PRO BLEM) following 2019 Novel Coronavirus (CoVID-19), MILY L from Nasopharyngeal Swab collected on 22-NOV-2020 16:44:00 EDT tested positive for COVID-19. no history (685021185): Resolved. Contact dermatitis (49681257): Resolved. Pharyngitis (8853014934): Resolved. Cough (22006332): Resolved.. Surgical history: Tonsillectomy and adenoidectomy (606661876).. Family history: No family history items have [...] 4 hits/day - 03/07/2022 14:36 - Munira RN, Chloé Tobacco 02/26/2023 Smoking tobacco use: Never [...] (Order): Throat, 02/26/2023 10:24 EST, Stat collect, Neha (more content not included)... Normal [facility] Urgent Care Recordon 023 Urgent Care Record [facility] ? Urgent Care [address] [place] [address] PATIENT DISCHARGE INSTRUCTIONS Patient Information Name: LIA DESAI Age: 22 Years Date of : 2000 Reason For Visit: UC - Sore Throat; SORE THROAT, CONGESTION, BODY ACHES Arrival Time: 02/26/2023 09:55:01 Primary Care Physician: Attending Physician: Errol Ortega Comment: Visit Diagnosis: Diagnoses This Visit Myalgia (M79.10) Other viral agents as the cause of diseases classified elsewhere (B97.89) UC - Sore Throat ([id number]) Viral sore throat (J02.8) Viral upper respiratory [...] and treatment you received today in the [facility] Care were for an urgent problem and are not intended as complete care. It is important for you to follow up with a doctor, nurse practitioner, or physician?s inventory assistant for ongoing care. If your symptoms [...] so we can reach you if necessary. [facility] has provided you with a complete list of medications post discharge. Please inform your flat spring assembler/provider of your visit and for further instruction on these medications. Any specific questions regarding your chronic medications and dosages should be discussed with your primary care physician(s) and/or pharmacist. New Medications [facility] [address], [address], [place] [id number], [phone] dextromethorphan/gua ifenesin/pseudoephed rine (Capmist DM 15 mg-400 [...] their own, without (more content not included)... [facility] Coding Summaryon 02-22-2023 Coding Summary HTMLBase 64 XotukomoVZo1wOw+PGhl YWQ+ZO2TESCmR95xxQAs aP0hZ1YHTDzHRmdxIJVM ARgBYdPpaeJbWD2hjUTn ZXJu IC8+AD5mELQnOovdyUVw z6C3wZT0Z95agy6nHWfs fJP0HUGvQzRkoavvp6eu yWy1XDpzJmdhMxZw VTXihP28MMI1gE98Ih78 fLDqzPOen9eopWf9QpGc FUErOEU5uBhhXDqkc2Zg AWDxG46dqDGrp0G1 IGNvbGxhcHNlOyBlbXB0 nN5kKWxifbklr3wrihrd Bmu4mj49aWHdc5K6iZC9 T6HftsD0CWPuoMNe YkrymXXBqF3iniogy4yu lmwqRvItMSIlGPm0BUz5 DUWcdWmiFcTzKZ57OVC9 DWLzllVwE0DlCXEm pLvbVsC1c1R3Eq4QC7VE YgauP8ZKGBAOBYyshTO+ SO45dn47Q2AhYcnxEvy8 VSIhYYQ4sXR3qN6i MGPiNIgqs6T0oLX9Q4Up uxRekv4wh9tgUGPnYLnx X30smSSfw2D3IGHecRO9 UPYxjPhyQwZuhM53 Oyc+UTRgdAlsf1GiQhaq n8ebo4mayHp5BpzdXZOu efTnqOnqFOF0y5RlPw7h LKEyxER5iLJ9cQ0i ViBgKwX5XUaxS376GpMn vVUwFlwpJ30kN0RfzGX+ XMOcCcs2QTLthLsoHW2x I6VoXDJkklqjpNSg qMzsXC2mPOUlwmpyHUGo zB5tRLWkY3l7UkCbTlE7 HPpqE3JgMKVdsrbqMq96 fQ7oLaCvFcX1VRox V1KqemJ9IEXiyUQcCMzz MCM8U85fh4W6RHOpTHZb WHP7rRB6qU1hbDmyndgq bGVmdDsgdmVydGlj NNywYPgfN743JLPdsQbo PkNvZGluZyBEYXRlOiAg MTEvMTcvMjAyMzwvdGQ+ TIQuYLH8fRgzOKHg xUTqWSfwBx9eeSyesFhy WU9fZPNjyqwqTKUwoO2k ESJaaHKwvRluBN0bAOUn gwxuv452ExWpMSO5 UEAdsMFaT1CsfI6bPjHu OGAgJFEfG5UawDBpYIjb Q352KYdzXgK2UUFgbqZo F1CeUVWcvIapUhA2 o8A4Wb2Hd3JjtpsnU9Ck jXRvBrWvBfrbGAf4C7Vo PjwvdHI+TW28SWAqYH35 EBy2ANE4lMtbTLkl QXDzJ2RgvW8xLeXfYFVd ZGRkOyc+PHRhYmxlIHdp ZHRoPScxMDAlJyBzdHls XA1nWi5cPHCuAWUx bPcnjAZsGwRav9saXBUm XUudQD5kjTotM2PxqLM1 XELmf7q9Zs68P71tC8Xn dXA+LTXexDM2uMM5 jU4dErKhIpQ9UJglM212 VmIbeMKnNywrw1feb4xb bEa5CwD6JKKtcoUkzMln ERC6f8PdFg53O27k IHdpZHRoPSIxNSUiIHZh jJmdjz8quJ0nAx5+PGNv lWC7rMJ7vD1hMgXgHzD7 KEbyP118HpGatVGn Thnzh3eqg9pnrTm1TzGc DSIrkpLswFmiQBP2a8Zr Xp78T8ZneYggg6SyAls6 ov10sFHhc2Z6bWA8 J9OqRSHbisfeoBHorCkw MN0xPMDyfzdbVSRfpW5k HHXdH9l6MxUuKlU6ORux I1FhisU2TBYvpHJt EZFqoCJQjO0nuaict9gt oxupAaEoCGUpYQw6YAp0 CIUclAiyOlFwUZL4KhX2 QMQ1mRGrgE7crWqj rpnziW0cGkv+RRD6dNYw vNFICX7qVfxymRM+PHRk JUI0xFgfQKbmEFIcwG8r PKWeD7j8VfIvGjT1 KWhrP9UldeR7QQZxlUJh DGUoiACIsA1vfoprr1nv thomZsNeTDFeUKs5ESx1 LWFsaWduOiBsZWZ0 CcA6DGY6vWVerW9mdOlc hwfxpL5wUxi+QmlydGgg NYV6CVk6D6JlNba2WDOz zQgqRU0zhIDuOYvk Wl3qgTnwwWzgZT2uCJYx uhicl096IqKxk0wuHHIv jIMdFAcwSJM0J34nl3H7 RVGpTZHrZFF8cMG3 kB1qjHilhhdhiYKhyYjf jzLcoUtjNXnxUQksM969 LLVmbNayWlWcWZu4X7Ss Syv2YJRxiQoqWU3t aCLeOUebTu9vxWindMgf TH9cCYYkakcsn411AyTx y5epAHLqfMEdDNyeQGS7 B09qf7B7HJUxFNWr THK2jCG1sJ0leOyjwycb bGVmdDsgdmVydGljYWwt HEjeA991UZVswFswEuDj wBe8O9FiDjt7XWUq uWadXD7vyVWsBPtdSm9q yZgzwRemLN2tTPXpjmqe b754HxHsp6qgQOMuuPJt YXixXFZ9E09ot1I1 YRDlHRCrBSM1oRO1fO1h bGlnbjogbGVmdDsgdmVy rFlqQDqeCZbvL901MQNh cDsnPlBhdGllbnQg KKoqVUn1S1EnPnbtoHJ+ ZF47ERUsUU99eRTctNOq h0tzpWp2EpLvGFZqYXI0 cXxmNDenp6ZpXAXb I36hzRCsx8N7EBWpfWci sIHsNcPmyYQ0qO3dZBkv rdiug3laypukQjkfs4ho ap49bI74E14wYDtq ZHRoPSIzMCUiIHZhbGln yj6zhT8sCm9+PGNvbCB3 bAJ9sW3eEUSrCyM6YQvh G596JtYsgJVqWnav o1ojx3ricRo9NkQ7MVCb zvPuhWkuVVS8p4LqBa53 Z96wQCatPSFfIUPrGGZx JTSlpOuvab0fwW2j Ii8+THFxtZQ5nRN4jR2y VxZfSoU6QSpnO944KnVc nVSsSxqzX64tN8NhbHP+ MIZxWcf1KWLxeUur FG3fnHKiRTtdUy9oDBS8 DgKdSlLnGPqpD4EfWNQt dkkoyalgvYS4AQVzKTMf xR13Iw0ozAygDYZn aWGTlI3drgnrj4zikuwl YrCrZLIbCJj1LDy4BSMb kLnmQmYbZML4MdZ6AZO8 cYLnoX9jxZrfofga rM9bR6DgLUKfmjzkEv46 sQ6lEcWxFrR3IIxnMmk+ C1rWTjIKLDlbG5oLLDGF QYkKLM2AYYtzuLQ+ NSFcGBG2hApdDPkzKNCf kI3mGOOnZ2q2NwKvBwT1 XDjyM4UrQAVplcrqRw06 rP0xTrTbUbA1EHpd Q7XsccY7FBQrmPNcDNtp VXC3E37ve9F7VCTcKHRf LDM1gFR7rP4pjMheruua bGVmdDsgdmVydGlj PHitJGkiI551CXZmqTru LbO4OdKuWtGzQBM4T2Vg Zmu3KVEriLmgYD7qnMUe PPexPi9jqAdfnHfm EV9pTDOupajyLPFdhY2n SNHbsPMqsXgyBE8wYYNn fpvup556BnVbABR7YGYy zIUdW6NvpH7pZwHg FGKfRNAgZ4KaePUfKXxr B760WCwbReB2WBMkoxNu A8VwUIQkeAjlOnE1h0O9 Ad1nQUTDUHXtfoos dGQ+QOGpQMT8kLehSLlx ZGJdoN9yUUOdZ6o9MtRb VyK6OVgoX3JvWNOmxkqh Lu02iS7dHqMwVxP8 GIwiI9BmpsQ7KAYgaPYh YSmdWGB1M22ye9J2HVFq WCVlQXJ9xLR6qG3mfBcd bjogbGVmdDsgdmVy hZcsRHqhABraM709JETo cDsnPkZFTUFMRTwvdGQ+ HCLeVAX2bZpyCHkzDIGy tE9pPZTrQ9m0AdKv TuQ6PJrkV1ZmQIGeavfa Ox86wR0oPtYhNgD3THbd R1ZxkqU0QXLpsOIcMOrt IJB8J11rz4P5MZCl MSFqLDI7yJP8sT0lqCgo bjogbGVmdDsgdmVydGlj HWwvQWqyW382SZRdgSmp Px3MVC45WY34E2Gk PjwvdGFibGU+PHRhYmxl IHdpZHRoPScxMDAlJyBz yFtcKQ6pRf4wQYXfRDXt aGyjrXJrKfOdi1pj TULfQSzwBA5gmBzkA2Dv cBK5HLFvc8a8Tx75I96o R1AzkDY+IZQigPK4oKP9 tZ3qJdHzPbK9XPmh C975SdDclUGjKybmp1kn u8zbnYi2PlByRINzwfAf dKcaJUL7a4SbZl30L81j IHdpZHRoPSIyMCUi OHQyvDhyun5ndY5bIp2+ BBKnoQJ4xAW8iI3eAzGr JiL9UWndU839YnXavCQs AzvwY28mS4UpdMB+ MTFdSyv8XVIllTcxAA4j rUZeVGkzDi7kYWD9XmPl EjNbDZhjG7NqUVJfuxag zlieoJR3VCLzMMWs iI73Xd2dqKfeXi1yNDVe VDW7CMCffGVnX2ZsuC1v PmKzZTZePWBlG7UilKVx TCpgR957BSsnZeB7 APFoyzWxZ7ZdTOBihQzz AnE1l6P9Uw8IkBglsQTy QB0kXkYsIRx0X1LjWgc3 KJTwmLewDO0gkAYd PDhoVf3rqXhhbSfxAK3c RMJzebwxm399SsZrq4tf TFNoyJXvQVlsTOT7P34p w3O6TIUsWSOoERS9 zCZ2kY2pdNjmsufusKWq dDsgdmVydGljYWwtYWxp M624KCIypZnnGlPIFqc9 L3DoRxc5QORokJux JH4srHNfZQseXx1adBvx aWhxXZ4tKXHkfbmki697 NqPsr5gqNZJrjBMmWNix PSP1L45jc2T1ORCf JCOaUIV4lHS0tS6vvIue bjogbGVmdDsgdmVydGlj MMvmMLbwX072BTArmSyc Fl2GVfb4K3FzTen5 VDDuaAbpSE1iwCPiWKxp Zb0gzFyriGgaEE9xMDDf kljau787KeEzv4jvOQJt nNGgKTllICA1L69h x5N1CLQeFJGmHGL7bUR0 tB6slThwbocatJYqfIkj csIbaHcmKGdoXZswJ870 IHRvcDsnPlBheWVy OjwvdGQ+PK79wj16V0Bh XhcqPhq3IVRqGNM4tGM9 aN4zJMBzHRcfp1M1zYY8 O2EjfyYxcn2fe0sr YXB (more content not included)... [facility] ED Clinical Summaryon 2022 ED Clinical Summary [facility] ? Urgent Care [address] [place] [address] Clinical Summary PERSON INFORMATION Name: LIA DESAI Age: 22 Years Sex: FEMALE : 2000 MRN: Acct#: Visit Reason: UC - Wrist/Hand/Finger Pain or Swelling; LT HAND INJURY Arrival: 02/14/2023 17:07:31 Discharge: 02/14/2023 18:05:00 LOS: 000 00:58 Check In: 02/14/2023 17:07:31 Checkout: 02/14/2023 18:05:00 Address: [address] [place] [address] PCP: PROVIDER INFORMATION Provider Role Assigned Unassigned [...] Therapy Follow-Up: With: Address: When: Regla Hernandez [phone] EXT: [phone] Call for family Physician Within 3 to 5 days Comments: Call for help finding primary care provider. Follow-up for reevaluation. Continue with rest ice and elevation using ice 10 minutes out of every hour as needed. Return for any worsening issues or any other problems. With: Address: When: [facility] Comments: [phone] DIAGNOSIS: Contusion of left hand; Left hand pain Patient Understands: Yes - Patient/family/careg iver verbalizes understanding of instructions given Comment: Normal [facility] ED Patient Summaryon 023 ED Patient Summary [facility] ? Urgent Care [address] [place] [address] PATIENT DISCHARGE INSTRUCTIONS Patient Information Name: LIA DESAI Age: 22 Years Date of : 2000 Reason For Visit: UC - Wrist/Hand/Finger Pain or Swelling; LT HAND INJURY Arrival Time: 02/14/2023 17:07:31 Primary Care Physician: Attending Physician: DORA JASSO Comment: Patient Education With: Address: [place]: Regla Hernandez [phone] EXT: [phone] Call for family Physician Within 3 to 5 days Comments: Call for help finding primary care provider. Follow-up for reevaluation. Continue with rest ice and elevation using ice 10 minutes out of every hour as needed. Return for any worsening issues or any other problems. With: Address: When: [facility] Comments: [phone] Hand Contusion A hand contusion is a [...] elastic wrap to support your hand. ? Folz-ybg-lfujgoc medicines to control pain. Follow these instructions [...] or lying down. General instructions ? Take pgpu-rjy-phrghpn and prescription medicines only as told by [...] provider. Document Revised: 07/13/2021 Document Reviewed: 07/13/2021 [employer] Patient Education ? 2022 [employer] How to Use Cold Therapy Cold [...] the area (more content not included)... Normal [facility] Urgent Care Note- Provideron 02-14-2023 Urgent Care [...] All Problems (Selected) Anxiety / SNOMED CT 49349153 / Confirmed Acute depression / SNOMED CT 9871525384 / Confirmed Chronic post-traumatic stress disorder (PTSD) / SNOMED CT 234219742 / Confirmed Pharyngitis / SNOMED CT 4735451790 / Confirmed Cough / SNOMED CT 50080079 / Confirmed Objective CONST: -Well-developed well-nourished. -Acute distress: No -Vitals: reviewed. SKIN: -Gross abnormalities: No NECK: -Supple (mwev-op-ymigm): non-tender. CARD: -Rate and rhythm: Regular RESP: [...] and Plan: Diagnosis: Contusion of left hand (AOU11-NU S60.222A), Left hand pain (QHH99-UJ M79.642). Orders Orders Patient Care: Brace/Splint ED [...] [Verified on: 02/14/2023 18:01 EST] DORA JASSO [facility] Urgent Care Recordon 023 Urgent Care Record [facility] ? Urgent Care [address] [place] [address] PATIENT DISCHARGE INSTRUCTIONS Patient Information Name: LIA DESAI Age: 22 Years Date of : 2000 Reason For Visit: UC - Wrist/Hand/Finger Pain or Swelling; LT HAND INJURY Arrival Time: 02/14/2023 17:07:31 Primary Care Physician: Attending Physician: DORA JASSO Comment: Visit Diagnosis: Diagnoses This Visit Contusion of left hand (S60.222A) Left hand pain (M79.642) UC - Wrist/Hand/Finger Pain or Swelling ([id number]) If you received any narcotics, sedation, or [...] legal documents With: Address: When: Regla Hernandez [phone] EXT: [phone] Call for family Physician Within 3 to 5 days Comments: Call for help finding primary care provider. Follow-up for reevaluation. Continue with rest ice and elevation using ice 10 minutes out of every hour as needed. Return for any worsening issues or any other problems. With: Address: When: [facility] Comments: [phone] Medication Information: The exam and treatment you received today in the [facility] were for an urgent problem and are not intended as complete care. It is important for you to follow up with a doctor, nurse practitioner, or physician?s inventory assistant for ongoing care. If your symptoms [...] so we can reach you if necessary. [facility] has provided you with a complete list of medications post discharge. Please inform your flat spring assembler/provider of your visit and for further instruction [...] This is (more content not included)... Normal [facility] XR Hand Complete Lefton 11-0 XR Hand Complete Left CLINICAL HISTORY: Left hand pain. Punched wall. TECHNIQUE: 3 views left hand. COMPARISON: 12/15/2019 RESULT: No evidence for acute fracture. No dislocation. Joint spaces appear maintained. Soft tissues unremarkable. IMPRESSION: No acute findings. Final Signed (Electronic Signature): Gavin Mahoney MD 02/14/23 5:54 pm Technologist: KELVIN PATEL [facility] Coding Summaryon 11-27-2022 Coding Summary HTMLBase 64 DxgthrpsMYt7sUq+PGhl YWQ+BP1PFGKpC14yoZUk xI7fT7ELWYlCJcveNQMQ VKvOSpVoqzUxMO2lvHYq ZXJu IC8+NB5qWAEsUarmmQVa c3P7gGV6H73jax1tXOjr hVP9QBEzSwLbkmtyx7zr zNt9NBiqHhkgDyEj CJLnxZ26HFH2jA80Uv62 wCJswCCpd1fpeAs4TuJb XOKpGAI0wKzbZFiip5Xr BEQrX04ccDAcs5Z8 IGNvbGxhcHNlOyBlbXB0 bW2nOJwwfbdty4hsyurc Hzu7fs22gEOki4F8oOF9 L0WcqlM4BJZolFSn LjkubMMYrT0ezgpcn9pb oalfRoJxAGKbXEw1RVu6 AUXmzOpdBpKzTP89GKE6 WZDriiQcD0VnTKYa aNsdJgM2v7B4Aa1TV0NY KqofI3HDRYWMJMwqwWT+ ES53ir31H6DiBuzdMbl5 LKFuAVE1rLF8jY7g BGLdWVfue0N6iJG1Q4Er fuSuml4oi5biHHLjDZjj H92peDDqb4K0CKDvoQN8 UULyoKavUpAosB14 Oyc+ZVCoqVyjs6GcEnzj y3nzp9wulXi6FdnnSNBc lyRdsVdeNIJ2b1NqTe0l IUJlnPP7tIQ5rC3m FiJeBuO9WBsgX291DrDa kALqNxqbO18pI6RftGU+ VRDgQel6VLWsaNzaTZ4v A0SsVTXefoiloHVg mGysQC3pAADrkyswMWVs gV5kWMLdO3b3LfXdTcX6 FGilW0NzNKQkxogpRs57 oE6sZhYfDnF9EWqg U9PhruU0WRWevCXhXAiy YXE0Q29sx4C9WEPmZLOm NJE8iLZ4cQ8tmMmuqbff bGVmdDsgdmVydGlj FUqgIMpnE309DOCpjOis PkNvZGluZyBEYXRlOiAg MDgvMjEvMjAyMzwvdGQ+ DPBoCLW4tBuuRHMa mSCjMHzvIa7izKccwGfi RS1gGZHivvppLPGflA5t QOWuyGJcyOjnTD0kKJIk kislf060TwEiCXC8 YAGeaWIbJ5EctW7gOuPb XFFrXKBjL0PicDNrCLez H111QXzkYbS0FIXezeSd Q5JcCHHlxHenMeS6 e1G9Po1Za2OllahxV2Kf hOLgVoHoFlxeZAn5C7Vw PjwvdHI+TX84GZMwSO99 DQh8OHB3pPtnWTlf NIMaQ7DdrY4jZwQhICTn ZGRkOyc+PHRhYmxlIHdp ZHRoPScxMDAlJyBzdHls DL1cDo1rFHQkKYLl rSnudAQjQgNyb2thJXCi XDoaPK6loTbfQ1GjeLN8 FYXou7c7Rt66N73fS4Fr dXA+JYToyNI0zZV9 pC7sEmQeCgU3SRkuB728 WvPpuTNzNjltz2ilg6sl mBt9HvH3KURdceZykVfw GAG7q5IcTr13A92y IHdpZHRoPSIxNSUiIHZh lFdxtt9kvC4dWk4+PGNv kYV0yKC9pU3eWbUjPwJ6 YExmE422PoJfvNEc Mihou6xlc6ugeWu5DfRq DIOetvXqfMynYJS6k3Ym Sf59Q0FdoLpxr9AsRds5 tu53lEHqy1B9oPG2 Z7FqJHWdznlrsLPtmDzd LC2sXQPhueczNNWvqH4u QUApV3v8MwSuFzQ6FUpq Y2RowyX9BGQcoJWx USVvvYVAqM1gobmkx2zg ghvrAnUrGVYyERc5FZc6 NCWohXttQrHmYAA8BwQ1 ECT8yPQyvA0muSkn haurdP5mRsb+MDL3gVOb dBBAVW3hZussyYH+PHRk YFY8qOdpIStlSLTseI5g NFKvH8n8EmHzXqC7 XKdkE8CovcX2AZHknLJh TDGvnJSErH0tnrudk4dc peiwBrOdSHAtFNu3IVe2 LWFsaWduOiBsZWZ0 BeV3OLB7qDFukH9zwXiu wzlclC9zDee+QmlydGgg ZWQ4HTx5F8ZiZaa1YSVt dSxpYN5ffUQjFCjd Ku1gtQzonPjaDQ6pBITf rindd678HjVzi5hzABGr yVWjZKycDKH6V95ii5F4 KWXcYRQiNXS1jTV4 jN3beLqrnapdkDRvrEvt ecDpxJbmPGdqELmfY062 XOUbkIcuJnDjIRw6B4Pq Fyn7SVAalRzkEW4e mTQbQDklDi2xsXoqaMne TR1iKYBkaojqw729EgGx u4wfBZRgvIVyZCibSTZ1 V42lu7F4COLpBNQa CGV0oRX4nZ7dkKbxxuto bGVmdDsgdmVydGljYWwt SWwtD138VLRswCqtPvAs zVn4M1EkRcv9FHGr cSraXP9kfGEjMKxzDh4m qFcbqWgpSW1xYCCurdap r690OiUxt3vtDQMimUTw DTjcFPC6L10wr8S5 FKTcNNOqWNU8vEA3cH7j bGlnbjogbGVmdDsgdmVy lRklSHruGEjkK167MFRz cDsnPlBhdGllbnQg KKymHFo2I1AgFvsctLJ+ DN71BOQiSZ09hFFecVXj o5glhNp6ZdKuXGGmUKU8 pClbUYgqf2YdKUFk S35byCGsa0K6MRLwuRkl kJRrBrIwkIW8dB5tYPjm xxqng8eqhxudRvism4at fa40pK76O56fNJnj ZHRoPSIzMCUiIHZhbGln zg3voL3aRv1+PGNvbCB3 eTQ8sV5jWCDiNdW3WJox Q659XyYmiJAmVahu g8lqg4cqqAw4LzD5TAAo elDitYhlCUG5g7ZgAu31 J88xQUlzTTYqIJImKIPe ORGqmVszkc5czV3u Ii8+UHJvzSH3rHM6uW9i OqKnHrG1ZTukD282DfWo mZUuEhduG53mB3WpdHL+ FWWoUxo4KZKxjAfm WS4opYXlKSlcMf5iRKL6 BvZwPvUiLAgdZ5ChNXTy jherrnccxPR9NXPcFITu hN79Dk8wkJqfHRGs hGANsR7mghnqz8imhmmm UtQpPLSsDAa2PDt4AHFj oCfqKhMuIXA5VrI6CNO7 uLNvhR1xuYxknfeu rL4nQ6EqZYLrxlxnVs39 bZ4yDmNgPiT5OPcrQtb+ I6dVTlYLRYbcR0wGQGRB IVzGER1NBUomhXA+ HEXyIQE4nCovGObcHAZc jH2bTTTeQ2t9OaKpSuH3 IVfkZ6BuTYSqcnesBn21 jR9cJqGyPrV5DMbv W7VmmkO2XEOcfIAfGSlu EZS5H77mn6Y4BKJlFWDi XWD7hWF1lI8phNsbotxg bGVmdDsgdmVydGlj XDawHWseY916UFSowJuq LnN0JiZyFgKyHHP9K3Ps Kwm2JKMnwGdyRX2spDXg KHesUj8nzJqlyBzg PC0pLRQyjteaDOChdL0c BYCibZMpvWhaWB8kCKLm bqsng620OrLlHXK5SXHl qYReI9QmiK2aElEe JNCsJPFtL3EdoQHsFBzb Q060FVsjZqE2VYGwbjMx K8ZtWQTlhFunHuX9m9P4 Wd6vKYKWVMJfhllk dGQ+VGIzJKM7eRkzRRqs HFGyiE9eLFMfW0x2HpJg OpM0PLgkQ9XjNNLcfxut Ly25yB3aSrZfVuZ6 DDqwZ6SkxyZ3LEHilIXo WPjvMXU0D16ml0U1ZBSd LLZvJFU0aTZ2yR2pkNsw bjogbGVmdDsgdmVy wXkdSHayLUfsD509YBFp cDsnPkZFTUFMRTwvdGQ+ ETRbNSF0sUpcUZmtPSZc hF6sPBVlP2o1GcEa OcK9IVajT9SdMXJxsele Dr39bG3hIhHqWoO0LHdi W5ApiyM9CULnxZNvSItg OIW0M33xt3P4ILFf UZYuEDZ6aJA0rW1ekHld bjogbGVmdDsgdmVydGlj TQkbJYvfZ246KNJlpLkk BiKbYXDyBV8ecLnw dGQ+OX72cb27O7HxTfke Zuz0OAWxENS0nBK2rE6i MOCwZQkoe8B6fEC5B6Yj xoDioh1nh2vqCXAu RDamJ97yiYBas5R0TVAn mCK0CEWfhNxaAmQlmG80 Oyc+LCCdzXraw4UiOsmk e9bss8fsjOh4TuYv OEUhehClhVciRSF8k9Yv Lx54N30uBHriHUXsUMXa HMWiROAdtZlnih4aeK5z Ii8+FMCpbZY7wYM9 nX8iViWcWzJ5IQdiH679 GlMdoIDeEpyqu3tcx3qk sEl9QfBiBBFkhbDrdXlc FYV0u7MnHp42V8Dd sBmcy6VzIpm0qp56xKHk k5T9rBU1D8LmVKIcxckb zJOmfZjlZQ5lKSUqjgyj QBBlyV1tUXLnL8j8 TfQgEsL8FSxeL5YjijS1 VOTbhSYbPVUeoDXJbS7i gtboz6meqjsrLnPhVGYr QHl9IKr2GBEcjJah HuIxPLL1DyF0KMB3jLBn rD0omMjiwugvpZ8dLxg+ KSo2f0hefGSdVR8ujOW8 NM78QR88pSElc6P2 rCK8U5JuTFUgkgehikot kZJ5ROZqIJGxsI42Xa7i yBrqMd0fVVRwJCM6UOZq mAAeB0KgzL3dPqJz KUZjPKDaP7TpgYDwOMta I790VRrlWwM2NGNhqrWd U4ZmNVVixLzqKfN4m1C5 Io0DRK29OH09WM26 eLIzv3X8cED3J9UyHHPk buclzbegbJC5KTJhKNBc hK03Gf4tlFsjXe9eWQWy ZZO5TBDnmMEgW4Xw kM8cKzAuVSMfMCLlK1Xp zLLuMQzpJ766ESjzPvC1 MQOfcwYnF6WsVFOogBqs HuG8o9G0Gp5KAt45 WZ15VX14qWKwm9F0qXB9 P5YuVTHdbiolruwvkVQ4 BXKcIKIpfX81Oy4ueAnk Ho0bKSSbVRM9HHDg cQPiK5GzxD4uRbNyXQCv SJXgW3HwsIDiJXsoL601 ONigUxA7MZHfjrNlI3Px CMKevShiUqQ5s2A1 Xb4CKDuryps6J0NnQpte dHI+FD09OVQyUD75qEGn aHWjq5gxqCt2GtUdYMFw WOV1gUwbEHhgn3Zk ZXI (more content not included)... Normal [facility] ED Clinical Summaryon 2022 ED Clinical Summary [facility] - Emergency Department [address] [place] [address] ED Clinical Summary PERSON INFORMATION Name: LIA DESAI Age: 22 Years Sex: FEMALE : 2000 MRN: Acct#: Visit Reason: Hip pain; LEFT HIP PAIN Arrival: 11/15/2022 16:28:10 Discharge: 11/15/2022 17:02:00 LOS: 000 00:34 Check In: 11/15/2022 16:28:10 Checkout:11/15/2022 17:02:00 Address: [address] [place] [address] PCP: Provider, None PROVIDER INFORMATION Provider Role Assigned Unassigned Anusha Palomo CNP ED PA 11/15/2022 16:30:26 Zara July LANDSCAPE MANAGER Nurse 11/15/2022 16:32:34 VITALS INFORMATION Vital Sign [...] verbalizes understanding of instructions given Comment: Normal [facility] ED Patient Summaryon 023 ED Patient Summary [facility] - Emergency Department [address] [place], [place] [id number] PATIENT DISCHARGE INSTRUCTIONS Patient Information Name: LIA DESAI Age: 22 Years Date of : 2000 Reason For Visit: Hip pain; LEFT HIP PAIN Arrival Time: 11/15/2022 16:28:10 Primary Care Physician: Provider, None Attending Physician: Bennie Sharp DO Comment: Visit Diagnosis: Diagnoses This Visit Hip pain (59918189) Sciatica of left side (M54.32) The Pharmacy at [facility] is open Saturday through Saturday from [...] alcohol and/or drug addiction problems; contact the [facility] 29/10 Crisis Hotline -Text 6MDZI oe [phone]. If you received any narcotics, sedation, or [...] and treatment you received today in the [facility] Emergency Department were for an urgent problem and are not intended as complete care. It is important for you to follow up with a doctor, nurse practitioner, or physician?s inventory assistant for ongoing care. If your symptoms [...] so we can reach you if necessary. [facility] Emergency Department has provided you with a complete list of medications post discharge. Please inform your flat spring assembler/provider of your visit and for further instruction on these medications. Any specific questions regarding your chronic medications and dosages should be discussed with your primary care physician(s) and/or pharmacist. Medications That Were Updated - Follow Below Instructions [id number], [address], [place] [id number], [phone] Updated: predniSONE (predniSONE 20 mg oral tablet) [...] Stop right away (more content not included)... [facility] Progress Note - Nurseon 11-06 Progress Note - Nurse Patient walks to room 6. Patient is alert and oriented. Patient is here for left hip pain. Patient states Saturday she was in the shower and bent over and pain started to come about. Patient stated she had difficulty getting out of the shower. Patient has bilateral low back pain. Patient was seen at [facility] on Saturday and was diagnosed with sciatica. Patient is to see her PCP next Saturday. Patient was prescribed Flexeril and Naproxen. [Electronically Signed on: 11/15/2022 16:49 EDT] Zara July DANIELLE [Verified on: 11/15/2022 16:49 EDT] Zara July DANIELLE [facility] Coding Summaryon 08-28-2022 [facility] UqfgmdvaAKj5uEc+PGhl YWQ+AK4RSZVoT38dhAJt mX8xK0PTGQfNUyexWFPQ HHhGBcKbvtHyCD4jrSAv ZXJu IC8+HQ4hCOJiYinkaZRs n3C7eBM1Q65ogt8uCBfk lFG2EHYbRyZsknyml0tt fFp0DCwdWrjoFdGz XOMqlF77VRF2kX79Ck13 aZWxfLPfa6xifIc1IxDo HZCxYFI8lGgqDYagc4Qk JFEoK77jxCLup3S3 IGNvbGxhcHNlOyBlbXB0 yJ1rQOgsuubwj6igvqlh Woq0ls46aCCvd9K7hCE4 X3LfgnS4VCGxyMIn HgtemBVEoK7wstoov7mv uyltDuGiMOUkDAx0XAc7 NEBrtBxrMrGsSQ61NWQ3 HOBbthPbI5KjMBBe mUzzArR0s7M1Eh2QR8TB YvkkH2THKNGCQYmhgWR+ YW79ff57H0CkIselOwy6 MNNwLCM7rDH9dO4d LWYkMEsaz3Y7dEY9X4Xo qvFbuk6lo1ofVZEcEEme K57ulDQno4X4XINhdPS8 HRLprDoqLmMlfI68 Oyc+WCAkdMzcx1DeWdln p6lmv1veoEd7TusrMZTi uvSxaAidNJU3j3MkHd8j HUZwyIZ2nHW5aF8a FxIpFnZ4GHdhH098AxVh eALkRbqcY60oY4BmfAP+ NCFcYuo0KWWqtStpIN1h E4SkLVVwtywfeTFz lYdlNC6hSZSiimirEFGq sB0dCXZrX0v7KpFhZuN8 DOtvE7LaVUCxkrjxAn25 bY4rYdRbCjX9INmp A0OqlyN0NOCrsPLpGTxd WPF5X99ab9Z5YZJrBWGf ODW5mYF4xO8phFhhjpjt bGVmdDsgdmVydGlj ZTvcOTmvT176QDGbfAnz PkNvZGluZyBEYXRlOiAg MDUvMjMvMjAyMzwvdGQ+ EHAxXNZ6ySqtFMCw mWBsQRwgPb0qmBvklDzt BP4dEBVywwdjMHMhdB7b HTUqrRUngAtgLG6vMZXo rzwdk052MoBoJSO0 OMXemZNaV9JavE8wGdLy UFQoICIgX8LawXOfFKli U017ULhwXjD5HDGvdjWo F0JwBKGanJzcZbX6 u0B3Zu0Ek4BkeqftA1Ov eUElKjToKemcOLg3M2Hc PjwvdHI+YX63JFDxCD97 WCs5QLL2bOzyLKwg WXGxQ2CkkE5nAuBwCLTv ZGRkOyc+PHRhYmxlIHdp ZHRoPScxMDAlJyBzdHls PC4lTk3xLTJwDNJa pObvaOSsVvDxc4zcQTJj WIzuWB6isTjiA4KppXZ9 DSYnk6z2Op62N89hB1Yx dXA+QRAkcLK2aWJ1 hJ5rWbYkCiP2CSplU638 BfWviYXjBloba5dvw3kp wIc2RvZ8JJPdogKtvGwv AVZ6f5VqCq59H59j IHdpZHRoPSIxNSUiIHZh bMkhfd4ngT4uSg3+PGNv wZR0jEP5gY3xOiIyPtA8 JSshD566MjDdjRGo Pqgpw7mqe7xerLl1QpQl WELiwiNnpXuyJLN3j1Hp Hq26N7FhsKeyu7HvEbt0 lj37gITla6R3oUL6 D8NuWVTbymnpgDWraAfh IL3sJBHrfdqvOFDuvG2r LZQxQ2c6QoWoZmL3JQtn J6UrykE0HZTaoZBu CMHnbOLVwL6nmkwjn4pq dnouEkVuUVEgXAr1VIz9 XBQspOmgQgFgBJG7PhA8 IDO4sCBjlS6zhSun mwsbyA3qPzj+KJE8gBLm xONZLE8aPrdpoQB+PHRk TIM8xLxrCQetWSYqrT3a YJIyQ7v1OeImGeG8 CBncJ9GngeH8SEOwaIBt ECBkbWRDaL2ymvnov5cn clozCsErIIZmPJf9DKh5 LWFsaWduOiBsZWZ0 PzX6QLO0uSCwuS9itQhm sxjokP5nIcv+QmlydGgg DQQ9CWc1U9LeCuw6NUIm nPlaRL3dsIPrAAlo Jd2vfVkqaUvwAY5dSMPe rizxv000DiTda0hqQCYx uYAiOYcaYRX9I63vf8P2 LUXfHGXjCSU0cLW3 kO3rqPrcthvcxYFbkSis kqZzyGifDWerGUcvG502 ELUvfMvfErBjBYo6I3Db Bgv7TZXofFeiLS1o jICuCEvbQf0sdPznoMzv DL6vNMLxffuiy363MsZj h3byRWBzsDBmSMomMPX5 Y39kz1O7SIRwVAWu GYQ9xJD7dF4amZqydsmw bGVmdDsgdmVydGljYWwt JEftP336JZVrqFlhSmWx bFu6N0UtWtz2GNBe aAtgHQ8lhJAtTBwrAm7j vRywcPbaUN7wIEIgsorv v442JpVpx6huXPJgmIIg KMmxJFG9A83yd6W6 BZMmAVFsVMQ0jKR7aM8x bGlnbjogbGVmdDsgdmVy jGpkTEodGJirD854IICp cDsnPlBhdGllbnQg DGclPKp0E4IxSqllsXT+ SK36GYTxGU28mSTfgSAq r9lecNe8FeKbAKEuUOR8 nWrfOLcgu7IeIOAs Q02rtLRyo1Y3ILKnaLgz aJVjSvQvhNZ8iB7jWUuk cfrvy1golxkiFxixa4sy fj40iJ27W64vBLyd ZHRoPSIzMCUiIHZhbGln ta3mzU7oUl5+PGNvbCB3 dKF9hA1qAAIwXoI4SUjq A441HgJwvFPpHhoo r1szm4pgrEn8OuG6IRUa ooAykQxmDFK5t5XiGb11 Y36zNJuzFKZgGLJsHRWg SBNawKeqeu7wtL5a Ii8+SKRmzEZ4pGX0tJ2x QkEbCsQ5EShyN320RhPz lXJkOtxkK55fG0LjiZN+ OEDsDsd6JQAlfLye JH8qmZAbNYxiLr8pODS0 ZoTmNyAqUIdxU3JxVGMo eoapxjatcNH6VTQeUGYm cO61Cz5bwTjeFXPx oMAAgX9ylajeo3ttxdgn TfYkFRLlIMp0JTd0NZAb mJzbNgAwWHO1YzU5PIM7 eTTtxY5dbVxdrwid vB1lH4ZrMMMlgyqxTv41 mI2yMgDzPeB3LWqjTxr+ Q9rMPaZHSHkwT6vZFRKO HLgOPI1TCDxltIK+ XKEyBDB9yIrzRVvbIEJl gU3hDYDnB1w4TcYoEiX5 TRooE6JzGNMidbwqJe06 hT1kGjMpFxD6VQsn V1DlwsO2WRMdwLKqZPzh FNC5Q30dh2X9LEMmODDf IOF9vRP2qA1mbItlnwhz bGVmdDsgdmVydGlj GYifLUxuA768SJPwnAzu LvM5IdGwFcRzLOI7P8So Stp2AJBtrAhbCX0igFGu NXmcLv9oeThdhAaj IO8kHZLugzsfWSOrfG5s LENgjGCvkBsfAU2iWBYl psvnf527UnHxVPF5XKMk iVObR8ZqyK7zOfGm QEBaIEDsZ7KywWNyOAgy I738RPnaXbX9PYGxdaSo D9DkBNCmhXosGpP3q7Y5 Bq2qDLSIHNJijlqe dGQ+IDPbBLV6fIhmWYcb GXXwoM0eQQYkU5p3LvUb ZaA4VEmnU1ZsAJWxrrrt Um71tY6kSpNgPwF4 TXklJ7OpjqL7AZJtcLGx PVvyYXS2L35dc2O6FVJr BGQiQDF8gLT5tO2liKbe bjogbGVmdDsgdmVy vXivSYxoEHljU539AIUx cDsnPkZFTUFMRTwvdGQ+ NPQcNJT5cDmvTLnoDVUo gS6qAUEwD5a6FyNs HyQ9YUecJ8AqEPLntqao Id39lE0qPxFyJqX8NMkl G7SfoqE1SMNywQSbMGgo HYL9U29dq9M6HEFy ESLaMLB5bOE5aL6dxSoc bjogbGVmdDsgdmVydGlj EUlzBPrgJ371TYYlfPol Cd1HAS00PE30U0Dj PjwvdGFibGU+PHRhYmxl IHdpZHRoPScxMDAlJyBz uTavEW0cZh3jULNsDIEy rAufiYVuOzAfd9rv WYXtYTshHL3xwHwtH6Iu lVZ8VVMqb3v3Xb33W38p Z4FreMX+ALXzoME5zHY8 xE5vGlGoLhY7UNvk W803RtLocCGuFghgd1re g5ddsLi3VwWdHNElqxSi kNlbEFE6h5BxDs76I69n IHdpZHRoPSIyMCUi DSNkbFlknd8pwV7xTe8+ YRNnqEZ8cGJ4qF0lRhZc FmP7DGpxV176NjBopDUz TjjzK82lL5FnlEO+ FOZqSmz2CANzjFnsTD0n jIAbHSzmCl9tSFX7TkOr ZuZzFIviP1TnRVVauczn ndbcpMP8QNEbBFYc dF75Kf2fbFweNl5hJVOk SKM7GDHplWTuQ5SezT3w BcUaFERgQJCvW5KzwNFm GEawE910TFhlGsF3 YTIlrrIeW6BqBQJmbAyf DgV7p2V9No2LaNeksFHh DB5jJfCbGAi8U3SsAqs3 LJVvkUqqGM9zhXEq SUlpIf2ncVgoqPhrYM4y YRSpixnoc708QzQdc8iy ELNcqNZjLSrnZCZ2V99e u5N6UVUmUSTlDRC6 xFP5eQ5imUombcjqgYEm dDsgdmVydGljYWwtYWxp E122KBDaoPbdFdGUFid4 V2NcVss9PDTfiNrx MM6snCOjWPovAs3tjCea nSgmPR4dOPYsciefy387 DnUxh9uoYSIfjTHzYGuu SKU3N87fi5Z9HPVq CEPaZKG1lIU0zN5ksEkm bjogbGVmdDsgdmVydGlj JOxpBPdoD442YDQneTnt Kj1YFos7L0IhQya8 QCUtlCakRX4mcOYcXYar Zo8nyDzszEduNQ2dKNIu crlvx144KnMwg0kzHDJq jMSfIWlxQBU2T89v k4X5VHLdDMQlCOQ9fGQ1 hL0ncRuoxzrftGEiyYaj hfVmnAlxYNufFFbvE978 IHRvcDsnPlBheWVy OjwvdGQ+AR49si62X7Ge GwhgFlq5HMRkPDN1gGF4 fR2uCRAsONjbn3M8zNN7 L5BuscNnej8pp7iv YXB (more content not included)... [facility] [place] Physical Therapy Noteon 08-07 Physical Therapy Note [id number] #[id number] [facility] hCG Quantitativeon 05-20-202 3 hCG Quantitative 3.0 mIU/mL High 0.0-0.6 [facility] Comment on above: Result Comment: Post -Menopausal Reference Range is: 0.1-11.6 mIU/mL Performed By: #### 7 [id number] ####[facility] (DEFAULT)[address] [place] [address] Coding Summaryon 08-16-2022 Coding Summary HTMLBase 64 VhoftgupANq4mPn+PGhl YWQ+KV2TXPHfY78yqNKb hE4NJ8mJEN4DTXGAURSA UA0YWO0yzSP5MAnzU5Lq biAv BvedzRZjBO09BFu4EOS1 rRxtCVgxyG2soAXrY6g4 TjZaRW65oH07OZdxMNLf KvG5XoQnmgsicEWk C9mcZlXloXRzZua+PHRh YmxlIHdpZHRoPScxMDAl GhUniReyML2bAb0uTSFn LWNvbGxhcHNlOiBj r1gvWMXxEEcdAW2glEpj D4MtaVG2CFCic2s1Eg74 dHI+XQOnNGD4tBeoTVcq w664NwFli2zsGZJ4 aVUiRRdkGAH0U78wg0V6 ERArPOCxYKI6mPL1wO2f nMaatzpgA9VraOKjVhE0 GHU5hLXzsU6dbEjv vjbneT8cHmf+B56YVC3R QCAKCY6TMjg7Y3WvNirg dHI+IM78ZFUlCD00mRDa jNHfb8kbkPe0JuVe JLPqFWX9tWrfGWesw0Cy AABjM48gmIMjz3K8FMZl wJmxuFGiTeWezTN7rM6d SXqlafuoy0ompdac Htlbw8natn46zR49R60z MFhuXMOdMUI6CTQtGMFp bNjmri7upW7bTe3+IDxj r3fvi4egxAp8LvFy LJTzulWavNvhIJX6h3Zm Fq58L0BqrQiyz8RbZqz2 if66kMTok1R3qKB5NZod GTClmC8vEJyfWbY6 OCTzCtZmbB67bNJoSGnd Am9cqRukvCbzPK2pVLJu fbatBPAcoE5mYCIkfAZx uVhoDO3iBKBgwfpu a661UbApUSD2KDMlrETe V4YvwP1pHrNmRWXrBPVt A8IsbJSxORecP506XUxg DpO5OQBubzMwD4Us IBNsrXulYoN4r4Y9Xn9M r1XpezegRFJ8AKxxJWZ7 OhQwRaSfRuI7R5KoStd9 YSAtgYpnUD3cZ4Ki NFDytelubqbvcJW0RICw FQTjlL06wEZjWYfsXa6h i3B9s220WNVdMEGhbK84 As3cgPalOLHifQAI zX1ioiiqx4hqfvaeNrIu SQZkJIi4TWd7UWXgcHfh SpGgRRF8IvW7HBG1sJOz fA8eeDwbcosntY5h Oyc+Q21tqJ6vRGN0FOB3 ftmbLCAgugHsUS79MF25 S0GcMzndxBVtnGQ+PGRp bzKoxDfpEM5xWhZx u6cyq8CzXKzuZ1XhSNDm GRirMjw8RSTlVOO9aHT9 dM5oRKUkEToce8A6tZU9 X4AiywMnyz7er2rw FWEqSVtzW76upQHgd7B2 COSunRJ3FNFhpIksHyZw kX72Yqx+NIZzcXcvt2Dn Niljh2jux7nycEy5 IjMwJSIgdmFsaWduPSJ0 v0GuUb22V47sAPxlWDMr JJRcHVEfIXJfoRpltg2o bG5kRz6+PGNvbCB3 bFS4lB8gYKMfTwH5BBsn H106MlMekFXsXdljy4cw n7vatYu6ZpWrZYTvobZy fFrpHAQ3r0EmQg82 H35nDYruIXOwJFDuCETm VUVbaNhvgj3ljO9eVt9+ EX5lh7keoh28kC34hLU+ KMSlVAV0bEeuGGjt NPOntF8rANizJdU9PGUz RiYeyW16rCAxWGqiHl1q eLkqjXarZL7uDUSkciff g822VbOlb3isIPSp lMIhEVveOMD7R49qg9Z0 RWOtQBYnULM6mUY3yN6g bGlnbjogbGVmdDsgdmVy zOboYKenULzqA352 IHRvcDsnPlBhdGllbnQg RmIvEGh1U0JaZqw6WPRa mOdiQC1vjYKtXBdkOd3r fSqsbVoeZJ9rKEEg ilqkl177FwWbb7xlETXh zMBiCAxvDZQ6O50sg4U9 PIHaIYLeHJH5lWI4xL2m bGlnbjogbGVmdDsg pkMmxWaiZSufIZwcR382 IHRvcDsnPkJpcnRoIERh cJY5UN76LX36xZIkq8Q8 sQY4N8IqCIAzbgyv aekkeUB7UWVqIHMzqX91 Bq0ncZjpEr0rLMDcZUS4 AVAlgRRuI8AyvD0dMvSh BNGvKPTmM6KdmPAa UCbdV741USvmGyG7VUAy pwCxC2HrSLIuvTtcIfE0 j5F5Ty6EL1M6QO23IL58 lAFir8U1wFS6S7Qj JJGqcnumphrvxSR1MUVc ABNqvC89Yv4fcFcfPd5y XQLzFMI9OIWcoFSeX3Vt dU4qFwNdXCDoVPSu H5UmsMVeDDanD134DCye QvH2RRRjiwByC1WlGANn dCxyTbM2o1R6Go4RMVm5 RK17OK67mNGeq9V9 mIV7F5OtEVHlwftfezeg cZX8YMPwWWFjvI25Lm5z tCinJr3jZEOkYHE0CGXr eCNwC7BwnT8gKzJo NAUzCWUeU4UxdTEiDZbj G912DWpxUyW8HDJlmwIv N1HnDDLvsQkpOgL4m9H3 Jy2IUNKsKG81FRK9 hWV4PB74XX62E5LfKxsq dGFibGU+PHRhYmxlIHdp ZHRoPScxMDAlJyBzdHls RM5yVh4bBNFvLSNs fEjsdFBcOeEbm3lkVGLx ROahWW8swTqzR0BgdSK9 BJZdr9a4Ui07O58uW0Pe dXA+AINdpJJ3tHQ9 lZ3sLyGpJzS7KCffF986 KmWliJGcUaver7cdy9ld kGx2DsE3JJYexeVcsKfb SYM6e0TmQo39V87t IHdpZHRoPSIxNSUiIHZh sPvcbo7cyM5nGo9+PGNv mCW8vES7nB0lQnSeXeD7 YTmvV338XoHsfJOa Pkgnq4umx9yxaTy4HsHg UPPapmFzdJmtWGN4k5Zt Ls72C9DagRuec0ZeFeh7 ll77wMQtq4T4nTR0 J6RgAJRaeycahQPzvEpq KH0bOJYpfqwqUEOsyY1u YUZuM9x1AqSbIbI7CSri J6WvcfH7MAVriAYf DOyoIDP9A33cj1C4DYAc LBHeFWS2dFN4wG8qeCvw bjogbGVmdDsgdmVydGlj TWolLYgcA357USPk lYasHRGglF3yEKSdfCMj zAheZP4qTJTjqztlWqdP TEJFUlQsIFNIRUxCWSBM CVFNPxG6B0RjOsl6 QXYkiMcbFQ1ghATqFZkx Of1pkUoxvYghPU2fIFFo hlqeSONrxM9tOSOagENd tDlkQY6vQHEkmemo z548AkRwJWL8MOEnzWTr N8NlfS2mTvZhDTByRNNl P3EavBJwPBkuX739EPey TvU3VDPazwOzW2Av QNPhxNxkQxV4e9K7Ao3g No3oVe8qXKJpFK42IO28 cMZbd2K1cAZ1W1ZeLYUp jvrvnjidwRK0BQTs RHZpoP46yUQxBLxdIr4t n4U0c730RZEaCKQuwM09 Ao0rjIsaDFTisZHSgP6z luyck5moetirJjJn HTDhZXr5IWt3UXMnyCeh EmHkKND3XtP4CWA3dZGr rP3yeTewqhyysU9iQmc+ RiHzDZDpctN3V1Wa Sfe4HGWypVmaHV4ruNUp YWboXp2nbThpuUqpKT2n NRCailwiPZNfwD7eRXDz xWDnoZasXN1tKLIm cdhcr118JjGaJDZ7OBTy nPNuK9VisQ5uAjDeSPYh PCSaC1EefKHuKSwxE425 COlgJpM5LFNfgoKo T3CeSIAlhIsrCkG4b5T6 Of1QHI9IWHI7Q2DtQhr0 SVKdjGnrNR1jgOFzVXeu Lx2ueDejrAmjHE4n FBRruqltTZTjxY4pAJCp fTKsgVrjIU5xBWKivecn x803HgUgIBI0BRLruVFh F1FtoV5qDkFdLLPn RRTiF0ZquZYtRRkpR225 HBahFkM0TOTjlfVrL5Ce TOFgpFfkPpT0s7X9Py8S rCYqU3FaU9h1V0Ua PjwvdHI+EB81NANdNF41 iUMcmZYwy9qtdGc7EqZp VNJxAOM2wQjxEErvh6Jo FWHgN37obDLye7N6 IGNvbGxhcHNlOyBlbXB0 tW4jPHzsdwvqi8gopcim Wlmfh8dnko65jB16X95y IHdpZHRoPSIzMCUi BVJrcCcrwe5ptI9dAa7+ WFNfvIL5cTG5mU2zMwLk RtQ6ARltT099MiKwrJCr Hxkod0usk8cxiSn2 IjIwJSIgdmFsaWduPSJ0 y0GgXb28A20gTDfkOJYa HTBoYBLpGRMzdUekpz0p aM9lRg1+RQ5cc9yu ho54sP43hVT+PHRkIHN0 jSdtIUooQFKszY8nIDdf NnN3WOJdSiHojQ97uRHh PEzhQt3vyVeixDdr AS6uQONzujpqp697YqGg c4dyGXBvjOJlSAmjOIP1 E59cu8E7NGFqNAUlBFQ2 vOE4sE7mxXtcakka bGVmdDsgdmVydGljYWwt PJrdE146FCRojMutRyFo vATyS6zmnrPBZT3qSwgf dGQ+PNBmTMD9pFra HQxvDXBijE4cBDUsU2x3 OqGtUtB5CCukY7GiuyU1 JGPbjYBsPZFdyWNNmW6x ixygk5pvftzlMwGt XGNnBJj1IEj5ESLrbMol PcKjTGE6OeY3WJU4oIHf hR0svIusqzffwU9fHvm+ RklOOjwvdGQ+PHRk ZJM4pEisEQdvHTPifA6d WLQiL9i4QoEnPlV4TGit A3WhkfL5ZCMxjPEiVHHy wOSNvI2gkgfgc2cx xbwmMsAcXBGhCNy2EQg3 SNThhMyxKwEcUCU6IgZ5 YNS8hDGnjV9mfOpmfanr fL0lNug+TVJOOjwv dGQ+WNLsRBE2jTzqJCom RAOrkG7wMKGyK5r8OsQz GjK3OMpgQ8SofwE1TXQt oEQoEQFvlYFDdJ3n nydem0loantzUnEgYCIf NIm1POo0BSKswZlgJiJj FJS2AeB0MZA5hWUgoG0h lYxpmppdxQ8iHxf+ XYS9FWE7GS02FP88X7Jl PjwvdGFibGU+PHRhYmxl IHdpZHRoPScxMDAlJyBz wHtoVB4sJb2vSDXo LWN (more content not included)... Normal [facility] .Auto Diff 08-11-2022 Auto [place] % 7 % Normal 04-19 [facility] Comment on above: Performed By: #### 1 [id number], [id number], [id number], [id number], [id number] ####[facility] (DEFAULT)[address] [place] [address] 23884 Baso Abs# 0.1 x10 Normal 0.0-0.2 [facility] Comment on above: Performed By: #### 1 [id number], [id number], [id number], 2933789, [id number] ####[facility] (DEFAULT)[address] [place] [address] 96005 Basophils/100 WBC (Bld) 0.8 % Normal 0.2-2.0 [facility] Comment on above: Performed By: #### 1 [id number], [id number], 4872849, 7241680, [id number] ####[facility] (DEFAULT)[address] [place] [address] 84460 Eos Abs# 0.0 x10 Normal 0.0-0.4 [facility] Comment on above: Performed By: #### 1 [id number], [id number], 9669634, 8116431, [id number] ####[facility] (DEFAULT)[address] [place] [address] 83035 Eosinophils/100 WBC (Bld) 0.4 % Low 0.9-4.0 [facility] Comment on above: Performed By: #### 1 [id number], [id number], 3723535, 5229044, [id number] ####[facility] (DEFAULT)[address] [place] [address] 54134 Lymph Abs# 3.0 x10 High 1.3-2.9 [facility] Comment on above: Performed By: #### 1 [id number], [id number], 8904306, 8332717, [id number] ####[facility] (DEFAULT)[address] [place] [address] 16369 Lymphocytes/100 WBC (Bld) 25 % Normal 14-48 [facility] Comment on above: Performed By: #### 1 [id number], [id number], 1089721, 9106212, [id number] ####[facility] (DEFAULT)[address] [place] [address] 88691 [place] Abs# 0.9 x10 High 0.0-0.8 [facility] Comment on above: Performed By: #### 1 [id number], [id number], 0153184, 2792816, [id number] ####[facility] (DEFAULT)[address] [place] [address] 18662 Neut Abs# 8.1 x10 Normal 1.5-9.2 [facility] Comment on above: Performed By: #### 1 [id number], [id number], 9461440, 6900440, 13870551 ####[facility] (DEFAULT)[address] [place] [address] 18571 Neutrophils/100 WBC (Bld) 66 % Normal 44-88 [facility] Comment on above: Performed By: #### 1 [id number], [id number], 4276922, 8008193, [id number] ####[facility] (DEFAULT)[address] [place] [address] 96604 BMP Standardon 08-11-2022 eGFR Non AA >60 Invalid Interpretation Code [facility] Comment on above: Performed By: #### 1 [id number], [id number], 5128216, 5043730, [id number] ####[facility] (DEFAULT)[address] [place] [address] 18475 eGFR AA >60 Invalid Interpretation Code [facility] Comment on above: Performed By: #### 1 [id number], [id number], [id number], 9422353, [id number] ####[facility] (DEFAULT)[address] [place] [address] 49509 Anion gap [Moles/Vol] 18.5 mmol/L Normal 5.0-19.0 [facility] Comment on above: Performed By: #### 1 [id number], [id number], 4639871, 6593239, [id number] ####[facility] (DEFAULT)[address] [place] [address] 10243 Calcium [Mass/Vol] 8.7 mg/dL Low 8.9-10.3 [facility] Comment on above: Performed By: #### 1 [id number], [id number], 6667344, 3438228, [id number] ####[facility] (DEFAULT)[address] [place] [address] 49345 Chloride [Moles/Vol] 100 mmol/L Low 101-111 [facility] Comment on above: Performed By: #### 1 [id number], [id number], 0947931, 3773439, [id number] ####[facility] (DEFAULT)[address] [place] [address] 04333 CO2 [Moles/Vol] 24 mmol/L Normal 21-32 [facility] Comment on above: Performed By: #### 1 [id number], [id number], 9028991, 0723140, [id number] ####[facility] (DEFAULT)[address] [place] [address] 61078 Creatinine [Mass/Vol] 0.57 mg/dL Low 0.60-1.30 [facility] Comment on above: Performed By: #### 1 [id number], [id number], 4805569, 4839330, 47613625 ####[facility] (DEFAULT)[address] [place] [address] 93147 Glucose [Mass/Vol] 98.0 mg/dL Normal 74.0-118.0 [facility] Comment on above: Performed By: #### 1 [id number], [id number], 4161631, 0371659, [id number] ####[facility] (DEFAULT)[address] [place] [address] 55631 Osmolality 274 mOsm/L Invalid Interpretation Code [facility] Comment on above: Performed By: #### 1 [id number], [id number], 4638972, 5175888, 35572236 ####[facility] (DEFAULT)[address] [place] [address] 11390 Potassium [Moles/Vol] 4.5 mmol/L Normal 3.6-5.1 [facility] Comment on above: Performed By: #### 1 [id number], [id number], 9944708, 7632731, 82024650 ####[facility] (DEFAULT)[address] [place] [address] 91696 Sodium [Moles/Vol] 138.0 mmol/L Normal 136.0-144.0 [facility] Comment on above: Performed By: #### 1 [id number], [id number], 9630409, 3283120, 37358877 ####[facility] (DEFAULT)[address] [place] [address] 37541 Urea nitrogen [Mass/Vol] 9 mg/dL Normal 8-26 [facility] Comment on above: Performed By: #### 1 [id number], [id number], 1564160, 8614558, 89301691 ####[facility] (DEFAULT)[address] [place] [address] 69827 Urea nitrogen/Creatinine [Mass ratio] 15.7 mg/mg Normal 4.6-16.2 [facility] Comment on above: Performed By: #### 1 [id number], [id number], 7802577, 1688547, 90555300 ####[facility] (DEFAULT)[address] [place] [address]30 CBC w/ Auto Diffon 3 Erythrocyte distribution width (RBC) [Ratio] 14.1 % Normal 11.5-15.0 [facility] Comment on above: Performed By: #### 1 [id number], [id number], 6312239, 1237774, 23081454 ####[facility] (DEFAULT)[address] [place] [address] Hematocrit (Bld) [Volume fraction] 36.8 % Normal 33.7-40.4 [facility] Comment on above: Performed By: #### 1 [id number], [id number], 8344700, 6193091, 25546326 ####[facility] (DEFAULT)[address] [place] [address] Hemoglobin (Bld) [Mass/Vol] 12.1 g/dL Normal 11.3-15.9 [facility] Comment on above: Performed By: #### 1 [id number], [id number], 3696421, 1467691, 16759917 ####[facility] (DEFAULT)[address] [place] [address] Man Diff? Auto Invalid Interpretation Code [facility] Comment on above: Performed By: #### 1 [id number], [id number], 0362603, 5943192, 81558628 ####[facility] (DEFAULT)[address] [place] [address] 89798 MCH (RBC) [Entitic mass] 28 pg Normal 24-34 [facility] Comment on above: Performed By: #### 1 [id number], [id number], 9906421, 7090742, 84121446 ####[facility] (DEFAULT)[address] [place] [address] 42509 MCHC (RBC) [Mass/Vol] 33 g/dL Normal 26-37 [facility] Comment on above: Performed By: #### 1 [id number], [id number], 3770193, 9133360, 64987097 ####[facility] (DEFAULT)[address] [place] [address] 52842 MCV (RBC) [Entitic vol] 85 fL Normal 81-100 [facility] Comment on above: Performed By: #### 1 [id number], [id number], 7356718, 5556119, 43553470 ####[facility] (DEFAULT)[address] [place] [address] 67155 Platelet 367 x10 Normal 138-427 [facility] Comment on above: Performed By: #### 1 [id number], [id number], 4424804, 8427483, 69593176 ####[facility] (DEFAULT)[address] [place] [address] 00352 Platelet mean volume (Bld) [Entitic vol] 8.1 fL Normal 6.3-10.2 [facility] Comment on above: Performed By: #### 1 [id number], [id number], 1995238, 6998719, 54049439 ####[facility] (DEFAULT)[address] [place] [address] 35981 RBC 4.33 x10 Normal 3.70-5.30 [facility] Comment on above: Performed By: #### 1 [id number], [id number], 9943476, 2915267, 78954063 ####[facility] (DEFAULT)[address] [place] [address] 69039 WBC 12.2 x10 High 3.5-10.5 [facility] Comment on above: Performed By: #### 1 [id number], [id number], 2761503, 3444237, 27532580 ####[facility] (DEFAULT)[address] [place] [address] ED Clinical Summaryon 2022 ED Clinical Summary [facility] - Emergency Department [address] [place] [address] ED Clinical Summary PERSON INFORMATION Name: LIA DESAI Age: 21 Years Sex: FEMALE : 2000 MRN: Acct#: Visit Reason: Vaginal bleeding - < 20 wks ; 7 WEEKS, VAGINAL BLEEDING Arrival: 08/11/2022 12:41:34 Discharge: 08/11/2022 16:30:00 LOS: 000 03:49 Check In: 08/11/2022 12:41:34 Checkout:08/11/2022 16:30:00 Address: [address] [place] [address] PCP: Provider, None PROVIDER INFORMATION Provider Role Assigned Unassigned Adamaris Jaeger PA-C ED PA 08/11/2022 12:44:39 Arabella Romano LANDSCAPE MANAGER Nurse 08/11/2022 12:45:45 VITALS INFORMATION Vital Sign [...] Resolved Disease caused by 2019 novel coronavirus ([id number]): Onset on 11/23/2020 at 20 years. Resolved. Comments: 11/23/2020 CDT 16:07 CDT - SYSTEM Problem added by Rule (IC_COVID19_AUTO_PRO BLEM) following 2019 Novel Coronavirus (CoVID-19), MILY L from Nasopharyngeal Swab collected on 22-NOV-2020 16:44:00 EDT tested positive for COVID-19. no history ([id number]): Resolved. Contact dermatitis (71939495): Resolved.. Surgical history: Tonsillectomy (230518334).. Family history: No family history items have [...] quant draw (more content not included)... Normal [facility] ED Note - Provideron 023 ED Note [...] Resolved Disease caused by 2019 novel coronavirus ([id number]): Onset on 11/23/2020 at 20 years. Resolved. Comments: 11/23/2020 CDT 16:07 CDT - SYSTEM Problem added by Rule (IC_COVID19_AUTO_PRO BLEM) following 2019 Novel Coronavirus (CoVID-19), MILY L from Nasopharyngeal Swab collected on 22-NOV-2020 16:44:00 EDT tested positive for COVID-19. no history (273213832): Resolved. Contact dermatitis (96094181): Resolved.. Surgical history: Tonsillectomy (016743726).. Family history: No family history items have [...] % Auto Lymph % 25 % Auto [place] % 7 % Auto Eos % 0.4 % LOW Auto Baso (more content not included)... Normal [facility] ED Note-Nursingon 08-11-2022 ED Note-Nursing Patient walked into the ED with c/o abdominal cramping and bleeding. Patient is 7 weeks . Symptoms started today and cramping is getting worse. Denies taking any medicine for pain. Did have right lower back pain a few days ago. Was 15 weeks in may, had a miscarriage and had to do a D and C. Normal [facility] ED Patient Summaryon 023 ED Patient Summary [facility] - Emergency Department [address] [place], [place] [id number] PATIENT DISCHARGE INSTRUCTIONS Patient Information Name: LIA DESAI Age: 21 Years Date of : 2000 Reason For Visit: Vaginal bleeding - < 20 wks ; 7 WEEKS, VAGINAL BLEEDING Arrival Time: 08/11/2022 12:41:34 Primary Care Physician: Provider, None Attending Physician: Andres Duval Comment: Visit Diagnosis: Diagnoses This Visit Miscarriage (O03.9) Vaginal bleeding - < 20 wks ([id number]) The Pharmacy at [facility] is open Saturday through Saturday from [...] alcohol and/or drug addiction problems; contact the [facility] 29/10 Crisis Hotline -Ggfw 9TZSJ [place] [phone]. If you received any narcotics, sedation, or [...] sign any legal documents With: Address: When: skin tanner Within 1 to 2 days Comments: repeat hCG quant in 48 hours and can come here or follow-up with COMMERCIAL DESIGNER Call for follow up appointment With: Address: When: Return to Emergency Department Within As needed Comments: Return if symptoms worsen Medication Information: The exam and treatment you received today in the [facility] Emergency Department were for an urgent problem and are not intended as complete care. It is important for you to follow up with a doctor, nurse practitioner, or physician?s inventory assistant for ongoing care. If your symptoms [...] so we can reach you if necessary. [facility] Emergency Department has provided you with a complete list of medications post discharge. Please inform your flat spring assembler/provider of your visit and for further instruction [...] may ma (more content not included)... Normal [facility] Extra Redon 08-11-2022 Tube Collected Yes Invalid Interpretation Code [facility] Comment on above: Performed By: #### 1 [id number], [id number], 0576435, 1955286, [id number] ####[facility] (DEFAULT)[address] [place] [address] UA Ypnac2wd 08-11-2022 UA Amorph. Rare [facility] Comment on above: Order Comment: Urina lysis Microscopic order added on by [employer] Expert Rules system. Performed By: #### 1 [id number], [id number] ####[facility] (DEFAULT)[address] [place] [address] UA Bacteria Trace [facility] Comment on above: Order Comment: Urina lysis Microscopic order added on by [employer] Expert Rules system. Performed By: #### 1 [id number], [id number] ####[facility] (DEFAULT)[address] [place] [address] UA Mucous Trace [facility] Comment on above: Order Comment: Urina lysis Microscopic order added on by [employer] Expert Rules system. Performed By: #### 1 [id number], [id number] ####[facility] (DEFAULT)[address] [place] [address] UA RBC 0-2 [facility] Comment on above: Order Comment: Urina lysis Microscopic order added on by [employer] Expert Rules system. Performed By: #### 1 [id number], [id number] ####[facility] (DEFAULT)[address] [place] [address] UA WBC 0-2 [facility] Comment on above: Order Comment: Urina lysis Microscopic order added on by [employer] Expert Rules system. Performed By: #### 1 [id number], [id number] ####[facility] (DEFAULT)[address] [place] [address] UA w Culture if Ind Standard on 08-11-2022 Breakpoint UA [facility] Comment on above: Performed By: #### 1 [id number], [id number] ####[facility] (DEFAULT)[address] [place] [address] Color (U) Yellow [facility] [facility] Comment on above: Performed By: #### 1 [id number] ####[facility] (DEFAULT)[address] [place] [address] Culture? Not Indicated Invalid Interpretation Code [facility] Comment on above: Result Comment: Resu lt created by rule GL_MAGR_ADD_UA_CULT Result created by rule GL_MAGR_ADD_UA_CULT Result created by rule GL_MAGR_ADD_UA_CULT1 Performed By: #### 1 [id number] ####[facility] (DEFAULT)[address] [place] [address] Glucose (U) [Mass/Vol] Negative Normal [facility] Comment on above: Performed By: #### 1 [id number] ####[facility] (DEFAULT)[address] [place] [address] Ketones Ql (U) Negative Normal [facility] Comment on above: Performed By: #### 1 [id number] ####[facility] (DEFAULT)[address] [place] [address] Micro? Indicated Invalid Interpretation Code [facility] Comment on above: Result Comment: Resu lt created by rule GL_MAGR_ADD_UA_MICRO Performed By: #### 1 [id number] ####[facility] (DEFAULT)[address] [place] [address] UA Bilirubin Negative Normal [facility] Comment on above: Performed By: #### 1 [id number] ####[facility] (DEFAULT)[address] [place] [address] UA Blood MODERATE Abnormal NEGATIVE [facility] Comment on above: Performed By: #### 1 [id number] ####[facility] (DEFAULT)[address] [place] [address] UA Clarity CLEAR Normal CLEAR [facility] Comment on above: Performed By: #### 1 [id number] ####[facility] (DEFAULT)[address] [place] [address] UA Leuk Est Negative Normal NEGATIVE [facility] Comment on above: Performed By: #### 1 [id number] ####[facility] (DEFAULT)[address] [place] [address] UA Nitrite Negative Normal NEGATIVE [facility] Comment on above: Performed By: #### 1 [id number] ####[facility] (DEFAULT)[address] [place] [address]602 UA pH 7.0 Normal 5-8 [facility] Comment on above: Performed By: #### 1 [id number], [id number] ####[facility] (DEFAULT)[address] [place] [address] UA Protein Negative Normal NEGATIVE [facility] Comment on above: Performed By: #### 1 [id number] ####[facility] (DEFAULT)[address] [place] [address]67[address] UA Spec Grav <=1.005 Normal 1.001-1.035 [facility] Comment on above: Performed By: #### 1 [id number], [id number] ####[facility] (DEFAULT)[address] [place] [address] UA Urobilinogen 0.2 mg/dL Normal 0.2-1.0 [facility] Comment on above: Performed By: #### 1 [id number] ####[facility] (DEFAULT)[address] [place] [address] 12128 Urine Source Clean Catch Normal [facility] Comment on above: Performed By: #### 1 [id number], [id number] ####[facility] (DEFAULT)[address] [place] [address] US 1st Trimesteron 08-11-2022 US 1st Trimester EXAM: US 1st Trimester HISTORY: vaginal bleeding, 7 weeks COMPARISON: 08/08/2022. TECHNIQUE: Ultrasound obstetrical first trimester. FINDINGS: Single intrauterine gestation which has migrated into the lower uterine segment. No cardiac activity is identified. Yolk sac is present. [place]-rump length measurement of 1.1 cm yielding estimated [...] Signature): Jori Churchill 08/11/22 4:11 pm Technologist: [facility] US Transvaginalon 08-11-2022 US Transvaginal EXAM: US 1st Trimester HISTORY: vaginal bleeding, 7 weeks COMPARISON: 08/08/2022. TECHNIQUE: Ultrasound obstetrical first trimester. FINDINGS: Single intrauterine gestation which has migrated into the lower uterine segment. No cardiac activity is identified. Yolk sac is present. [place]-rump length measurement of 1.1 cm yielding estimated [...] Signature): Jori Churchill 08/11/22 4:11 pm Technologist: GANESH Myers [facility] hCG Quantitativeon hCG Quantitative 4616.0 mIU/mL High 0.0-0.6 [facility] Comment on above: Result Comment: Post -Menopausal Reference Range is: 0.1-11.6 mIU/mL Performed By: #### 1 [id number] ####[facility] (DEFAULT)[address] [id number] US PREG TVon 08-08-2022 US PREG TV [...] by: CHRISTIAN KATE Date: 2022-08-08 16:56 Normal [facility] Coding Summaryon 06-19-2022 Coding Summary HTMLBase 64 KdygnklcJLm8xHu+PGhl YWQ+QG4GZKWsG67rfSSf aO6MD0hFKK5QSLNJCKQE LG6UTG2ihAZ5LBxrH0Cj biAv TtwqdCMjNJ16DSu4SGR7 mVqnFIntzA8jlILaU1e8 VvDqLQ37jB91PLinTYIx LbB4FeInsvxmaDMx K8gdCbViqRKxBrt+PHRh YmxlIHdpZHRoPScxMDAl SiCkeRqzHM9yYq1kCMHn LWNvbGxhcHNlOiBj n8quKWWoENepEU3guUos I0KqkVT6MCVbq7v4Cq35 dHI+IDMuKMA5dGxcKDbp m136PjZaj5bcFLD3 cVXcNBfuXAF5M59kg1D9 ZHQiTPGfJRZ2hOX3gI1a gEkdoeguD0RphBUdHbT3 CEY9bGXveP5zxDtr xquxgJ6iHqt+A10TSH4W TIOVFB9KVxh7Y4DwRtkc dHI+WM98TVCuSA76mUVh pOGmt4pdoJm6HnIp TOFbYRK0nKtcHGlqc3Qn NMRvC10beXHpf0V0DZTo sVpgcZEjCpSmsYW3xY5o PTwisrdsi5bblpga Avuhx0uoof23rH18F34k HRuaCNUnCFV8NSVwQJMd kXeoel4lzO8vGl8+IDxj o1lgq7xatCu9SlNf VZLbznVsoRzhTEJ6q7Vd Yg01I8OasVlkm8OgYqy0 rw27lWNnj3E8kBJ1CBlm CTJroV1tXZhaZzA2 GGTzFoRtrW48yXGhQWqe Tc5hdAubeIlyPN2mZIFn cxetTKSwhB9rVHNrrOFq hIjtIC0aAUIcywtd e923AaFaOID9FNBlfPPa V4TseG9dZtToCDYjQNWx J3MqvEWaPCdfG425XJao TeS5EFPngjIsW3Jh WZHkbAjkKdS2s2X8Pb5F l7DyomwrWMT8AQfgFBJp ZvX0QnGmUfB9V6BcNww5 KIBsxEvlAI7aG2Oc ISVqgqtrcosqfVC4IQLq PINzxA38qNQiEPdaDe5j u3F6m029JZOcJVKgpW20 Vx8hmMyrJCXzvEVT bR0quslby1iafcdqVgYx QBKuMAo9HHk5MNZetDqg SdKxADU8HdA3BPQ7bFYu vV2ukHfgsdebyU7j Oyc+T68haL3bFUU8UVX7 lfpbDYVinzQmPN31KA56 L9DaHrvtrILadWN+PGRp aaMtbAkuGJ0wScCr z4mxp1CvFFzpS0VbFEDg YPzzCsq2GJXcZJX3eXU9 jX5gJHAiQJtyj5U6iJV4 C7IbfrIgey1gg3vl TZCyHRduF16qzVMja4S6 AXDwkHX4IRYajItbCrUa kW72Vpi+WDMckBlmj1Aq Znlus8bms4nrxZq9 IjMwJSIgdmFsaWduPSJ0 t2ImGj70F96qZDnsBBJy PAIqLPKmOOKzeKohju5h bP1gDs1+PGNvbCB3 oIG6dZ0dVNRhLtU6PPyi R762IjVgcRBbDsmhi3vr l0urgSf5QxMcITEycuGj wIfeZUG5e9TnYl07 P53bDEblOWVzNADuXREu TKQktTpxux9qjW4fSs2+ GS1fa4ekyv78gG98iXG+ SQJuPNA9xAeySWzx OWKstN7yZBojDuH0QIFc ScDcaV35yCDbYFxdSt5b fUatnImfGB9oIJMzhhme h600UkLzk9gxASPf lZCaSDseIFV4F05fv8J9 AKMuEKOgNZM4uIR8uJ8r bGlnbjogbGVmdDsgdmVy lYikUPlxZMstT112 IHRvcDsnPlBhdGllbnQg YqBvMEl5V1VpUtm5EDKc tHknSB4tjQHcOGiuPv9b dEryoUnxPV7bRYHb vmgnk134UgBan1gsTWDi eIIfPWioFGF8U99rb3B7 HELiMVJxRRZ8qFZ1eE9b bGlnbjogbGVmdDsg klPjrMswEWmsMJtoF962 IHRvcDsnPkJpcnRoIERh mIQ7SV36SL88lJBvy3K9 pIK8F8MuYEWzptds aljkvLP4QHXiGPWntY57 Pz3vzTmrEi7kYFMqPIZ1 QQAdwHNuT1TxiN4jMaCv WRJsBUFjB7DdtXWj LQzdC046PXkcBvD3VZSg seIpQ7HwZULeeMjvOkP1 c1D5Rg6HK1R5PC01QN48 xODps9W6qRK4X4Jn VPDcomglbsjbyWK6KXFw JXZgaR46Sf3bvPznVd7n ZJXkJGE5AMUguKSsC1Ac hR3tMnImKHAfHAOu M5WtmNLoWFgrB840IAxb CdV0UXThptHkO8VbIAWv rBehFdX2w8N7Sf1ASDg9 NQ49JV32kEGvs2V3 aDT2Z6ErGAMnhmoxpryu lDI0QEDnLZZdxG55Ub2a fBffSf9bIFPyDYF6HDVx gUWxT0XjaQ8uGkDz LDNpRHWtK3BvoDNfQUal K082OGutNjA4SEFbplYh A9GuQBGfuTtpEbR5t3E4 Hb5IQKLqZL45TPU8 gUU1KC82AV89E9JyLsoz dGFibGU+PHRhYmxlIHdp ZHRoPScxMDAlJyBzdHls SS3wEo7gSUPbQIDe xGyknJLdJpTqd9hoXEYj PAqeJE2dyJutR4NhoRW7 QFHvc7g0Wj22Y50sQ6Wh dXA+BZZnfHU5cNH5 gQ1eCeQkYoW8BYcmX366 QtGskDOdPvvgo9ufm8qp hLg5XjV2MRWqqkUwgKke RFB0x4LmNf84X78b IHdpZHRoPSIxNSUiIHZh wSmlno0tiU4nTa6+PGNv bDP5uWB3yD3oGnZhMeW1 HHpiP290MsNrvOUi Rsmvd8sna2uxpGx8SlCw NIZslmKyfLoyJNZ4v6Dk Jb45Y0CkqBisa8YtVcq0 lw72nEXus7Q2gLU6 T6BgWNUoojcvlHUwrGxy BI3aJAMdfldaJNLesV7p IWJkH2q3VnGaQjE2DFvp B2VcueN5CCBzcLMm MYriNLF9S59mg6S6IXIz NXCmLFU7cAR3qV6rcYlr bjogbGVmdDsgdmVydGlj ATwiLPppO912AXIw aUemMDUrfE6qGQYydYCr mPokTP2sALIqwivcVhaT TEJFUlQsIFNIRUxCWSBM HSHOReC6Q1FlKet4 XUJdoGapPN2jgVFiJPxp Vn5bfUytpTlcNR9lBNJn dpnlQJUibY8kKXStzFXt sMwkZE4lVUMpliwr d398QeZsZFF0FJCvzTNa L8JuzA0hIoWzKVPrHIEq U8AmtQAzLVzmI266TOmx TvR0XJZcauIfF8Jc FUKdnCgcDsF2k3X3Pl9x Qv4tNi8cGWXhMG55YB06 jXAiq4F5hCB5F0VqBOZq ygsitppvqUA5ZNBp SYBhdN98mUFgTSezRv5z n0K8d264VSQiMKIkdN12 Hj3alQheWDBvrSDWxN7p ckbla8qjjzxjAcWn QHDbRGi8TQw9VOImuGvy NqEkYAQ1GeI2DBK2iVYb uW1idCrvclmqmF4kHna+ NjFoBKUbjlA4J3Nl Ogf6GOIscLgzNC6tkDXn OFafPj5dpTngoVwiHF3m FJTjdxuuFJDhtT3lNQNi iFIdeAekJS4mKYRb ekttf011QqKtILQ1ROQp hAOiX6NxfA5qJhSwWHRg BEXgY1HlhXCuFHjlL219 IXttUyA6YZZizyAn S9XsAKNerWraCpZ9e7X0 Pa4WAN0NASZ9V6AzKjy1 LOLvxRhaOI1qhVJjBIsd Ei6lwXkyqKpaSV4k VGObhdhcZQEdaT3lYXGv lDVwzYvyZF5oKTKilxvb h143NbAkGFU1YFLgfGAi F4ZjqG1jOmUiXCAq KLNzW5DblFUkCPwlS981 ORqrBiT3YOAuslBaF8Ou WFOgyIebWkK8s6E4Rd2N UDwvdGQ+EO18fc40 A1BnUbtlIvx9HAZyQEE9 yJD7rN4dMIVdKAaey3S1 jUL1H5MylnXvjr4le5yj FITkKIntF47arKAk y7P3BXYuqQM0SYNauGju VvZljU86Lwy+PGNvbGdy l0RlYffzw4yxm0zvjYa3 IjMwJSIgdmFsaWdu AXP2q4LoNn48C09aEGfr ZHRoPSIzMCUiIHZhbGln zz0jrJ4iNi1+PGNvbCB3 yCZ3iE0hRfFzOwV9 RAcdD906KeMjeFQfYoxa p8ehl9vxpKx8BfGhABNd irEtvOfpXWF2f4QdEq79 J6ZogQmuj4WbLdf9 zx87sHTiq5U0rLC9Q7An UWTxjopvuHPgaOqhFK6s PWVkwqbmHFOkgW3sDBPz W2l7TgGoSyU8BXqn O5DbzyU2JGYxlMXqYTRe gASHeW9ubrbmq5sdbywn YdTxRGAoFDz9EQf1FDDt wCrzFlPbOQG8HzO9 QJV3tVKcjJ3rhXhyfysx mZ7kJuk+YKj0y2akkCLp RH6ngLL1HX95RQ57tMOb o2B0eYV1Q1EgDXTs jopbylvynYF5BVRvSSXh pI91We1xoKtsBc0aCHNo ATU9LCHscKMcX8FccZ5j MpBuEULgBTXkA8Ci uUHzFKiaP356ANakFyW0 DMMwdlLcQ0CkMITitXle GeG9d9A1Ne0PYM12BF21 JE37uNIat2C5nQJ9 K1OtFHFvebxpxwgukUG1 SSImQCUlsJ03Ya7mqFev Wx6wBBFqMBK9EVCzpDEw M1IbqF9uTeBwQNTv SOIsS7XcvPKbEPmoR420 MBupUkM4ZCUyezIeQ1Lk IGOyuWlsPsC4m0X9Cy0L Zv83CE32AB95dVGy p2M6aSW1C9QkWGUrctir rjxgpWP4DZVzZUVzcV45 Pj5wjCyqHd6xPQJuIQA5 MROkpEXlM0SgnK4n ByKaCLIcZGReG8VouGLy ZMfsB953GVulWjF7TIBv xpAbI9EbGCNvgQjiJnK8 n5M1Gb7YMItumaz1 T4FoNdcirNS+BY10GKIy MR89lJDyuQSfr2wuaYx5 RhYrATKwSXF9nJorKIiz i4MwYVXmO81voYDo c2U (more content not included)... Normal [facility] C Throaton 06-14-2022 C Throat Ordered by Discern. Normal throat jonny isolated No pathogens isolated Normal [facility] Comment on above: Performed By: #### 1 [id number], [id number] #### [facility] (DEFAULT) [address] [place] [address] ED Clinical Summaryon 2022 ED Clinical Summary [facility] ? Urgent Care [address] [place] [address] [id number] Clinical Summary PERSON INFORMATION Name: LIA DESAI Age: 21 Years Sex: FEMALE : 2000 MRN: Acct#: Visit Reason: UC - Sore Throat; UC - Body Aches; SORE THROAT, COUGH, BODY ACHES Arrival: 06/12/2022 16:17:17 Discharge: 06/12/2022 17:23:00 LOS: 000 01:06 Check In: 06/12/2022 16:17:17 Checkout: 06/12/2022 17:23:00 Address: [address] [address] PCP: Provider, None PROVIDER INFORMATION Provider Role Assigned Unassigned Birdie James LANDSCAPE MANAGER Nurse 06/12/2022 16:19:28 Nelson Sharma PA-C ED PA 06/12/2022 16:22:15 VITALS INFORMATION Vital Sign Triage Latest Temperature Tympanic Temperature Temporal Artery Pulse Rate O2 Sat 98 % 98 % Respiratory Rate Blood Pressure /76 mmHg /76 mmHg MEDICAL INFORMATION Medications Given: Allergy Information: Adhesive Bandage; Zithromax PHYSICIAN DOCUMENTATION DISCHARGE INFORMATION: Discharge Disposition: Home Discharge Location: Home PATIENT EDUCATION INFORMATION Instructions: Cough, Adult, Cvqc-nh-Kruq; Pharyngitis, Uebe-kl-Zjcz Follow-Up: With: Address: When: None Provider [address] [place] [address] Within 1 week Comments: Please follow-up with your primary care provider, call the office schedule an appointment to be seen in a week or sooner for continued care, you will be notified with your results, please take as Tessalon Perles as prescribed, take zdps-qqk-qgmlsds ibuprofen and Tylenol as needed for fevers, body aches, or headaches. Drink plenty of water to stay hydrated, and return back to the urgent care center for any worsening symptoms, concerns, or complications. DIAGNOSIS: 1:Pharyngitis; 2:Cough Patient Understands: Yes - Patient/family/careg iver verbalizes understanding of instructions given Comment: Normal [facility] ED Patient Summaryon 023 ED Patient Summary [facility] ? Urgent Care [address] [place] [address] PATIENT DISCHARGE INSTRUCTIONS Patient Information Name: LIA DESAI Age: 21 Years Date of : 2000 [facility]: [id number] Reason For Visit: UC - Sore Throat; UC - Body Aches; SORE THROAT, COUGH, BODY ACHES Arrival Time: 06/12/2022 16:17:17 Primary Care Physician: Provider, None Attending Physician: Nelson Sharma PA-C Comment: Patient Education With: Address: When: None Provider [address] [place] [address] Within 1 week Comments: Please follow-up with your primary care provider, call the office schedule an appointment to be seen in a week or sooner for continued care, you will be notified with your results, please take as Tessalon Perles as prescribed, take thwx-lln-wtiatnp ibuprofen and Tylenol as needed for fevers, [...] these instructions at home: Medicines ? Take gdwn-cpu-flpyuod and prescription medicines only as told by [...] things can cause a cough. ? Take eexr-ywe-liuqwlo and prescription medicines only as told by [...] provider. Document Revised: 05/13/2020 Document Reviewed: 04/13/2019 [employer] Patient Education ? 2021 [employer] Pharyngitis Pharyngitis is a sore throat (pharynx). [...] symptoms? Symptoms may (more content not included)... [facility] Strep Aon 06-12-2022 Strep procedure control Pass [facility] Comment on above: Performed By: #### 1 [id number], [id number], [id number], [id number] #### [facility] (DEFAULT) [address] [place] [address] Streptococcus A Negative Normal Negative [facility] Comment on above: Performed By: #### 1 [id number] #### [facility] (DEFAULT) [address] [place] [address] [facility] 023 Urgent Care Record [facility] ? Urgent Care [address] [place] [address] PATIENT DISCHARGE INSTRUCTIONS Patient Information Name: LIA DESAI Age: 21 Years Date of : 2000 Reason For Visit: UC - Sore Throat; UC - Body Aches; SORE THROAT, COUGH, BODY ACHES Arrival Time: 06/12/2022 16:17:17 Primary Care Physician: Provider, None Attending Physician: Nelson Sharma PA-C Comment: Visit Diagnosis: Diagnoses This Visit Cough (R05.9) Pharyngitis (J02.9) UC - Body Aches ([id number]) UC - Sore Throat ([id number]) If you received any narcotics, sedation, or [...] documents With: Address: When: None Provider [address] [place] [address] Within 1 week Comments: Please follow-up with your primary care provider, call the office schedule an appointment to be seen in a week or sooner for continued care, you will be notified with your results, please take as Tessalon Perles as prescribed, take ejkm-qfw-igggium ibuprofen and Tylenol as needed for fevers, body aches, or headaches. Drink plenty of water to stay hydrated, and return back to the urgent care center for any worsening symptoms, concerns, or complications. Medication Information: The exam and treatment you received today in the [facility] were for an urgent problem and are not intended as complete care. It is important for you to follow up with a doctor, nurse practitioner, or physician?s inventory assistant for ongoing care. If your symptoms [...] so we can reach you if necessary. [facility] has provided you with a complete list of medications post discharge. Please inform your flat spring assembler/provider of your visit and for further instruction on these medications. Any specific questions regarding your chronic medications and dosages should be discussed with your primary care physician(s) and/or pharmacist. New Medications [facility] [address], [address], [place] [id number], [phone] benzonatate (Tessalon Perles 100 mg oral capsule) [...] these instructions at home: Medicines ? Take njvs-mea-wabnhgm and prescription medicines only as told by your doctor. (more content not included)... Normal [facility] US PELVIS AND TRANSVAGon US PELVIS AND [...] ANGELA SCOTT Date: 2022-06-04 06:57 Normal [facility] US PREG TVon 05-16-2022 US PREG [...] CHRISTIAN KATE Date: 2022-05-16 18:15 Normal [facility] HEP B SURFACE ANTIGEN SCREEN on 04-20-2022 HBsAg Screen Negative Normal Negative [facility] Comment on above: Performed By: #### H BSANS #### [facility] [address] [address] [address] Jeronimo Melgar HEPATITIS C VIRUS AB W/ REFL EX QUANTon 04-20-2022 HCV AB <0.1 Normal 0.0-0.9 [facility] Comment on above: Performed By: #### H CVPCRR #### [facility] [address] [address] [address] Jeronimo Melgar Interpretation: Comment Normal [facility] Comment on above: Result Comment: Nega tive Not infected with HCV, unless recent infection is suspected or other evidence exists to indicate HCV infection. Performed By: #### H CVPCRR #### [facility] [address] [place] [address] Dr. Jeronimo Melgar HIV 1 AND 2 WITH REFLEXon HIV Screen 4th Generation wRfx Non-Reactive Normal Non Reactive [facility] Comment on above: Result Comment: HIV Negative HIV-1/HIV-2 antibodies and HIV-1 p24 antigen were NOT detected. There is no laboratory evidence of HIV infection. Performed By: #### H IV12 #### [facility] [address] [place] [address] Dr. Jeronimo Melgar RPR QUANTon 04-20-2022 Rapid Plasma Reagin, Quant Non-Reactive Normal NonRea<1:1 [facility] Comment on above: Result Comment: Plea Note: This test does not meet current guidelines for screening and diagnosis of syphilis. This test is intended for following treatment response in patients being treated for syphilis infection. To screen for syphilis infection, a reflex cascade that includes both RPR and a treponema-specific assay should be utilized, such as Treponema pallidum (Syphilis) Screening [place] (719355) or Rapid Plasma Reagin (RPR) Test With Reflex to Quantitative RPR and Confirmatory Treponema pallidum Antibodies (343108). Performed By: #### R PRQ #### [facility] [address] [place] [address] Dr. Jeronimo Melgar RUBELLA AB IGGon 04-20-2022 Rubella Antibodies, IgG 1.85 index Normal Immune >0.99 [facility] Comment on above: Result Comment: Non- immune <0.90 Equivocal 0.90 - 0.99 Immune >0.99 Performed By: #### B OX #### [facility] [address] [place] [address] Dr. Jeronimo Melgar BOX TEST SENT OUTon 04-19-19 SENT TO REF LAB 04/19/2022 Normal [facility] Comment on above: Performed By: #### B OX #### [facility] [address] [place] [address] Dr. Jeronimo Melgar CBC AUTO DIFFon 04-19-2022 BASO # 0.1 103/ul Normal 0.0-0.1 [facility] Comment on above: Performed By: #### B OX #### [facility] [address] [place] [address] Dr. Jeronimo Melgar Basophils/100 WBC (Bld) 0.5 % Normal 0.2-2.0 [facility] Comment on above: Performed By: #### B OX #### [facility] [address] [place] [address] Dr. Jeronimo Melgar EO # 0.1 103/ul Normal 0.0-0.7 [facility] Comment on above: Performed By: #### B OX #### [facility] [address] [place] [address] Dr. Jeronimo Melgar Eosinophils/100 WBC (Bld) 0.7 % Critically low 0.9-7.0 [facility] Comment on above: Performed By: #### B OX #### [facility] [address] [place] [address] Dr. Jeronimo Melgar Erythrocyte distribution width (RBC) [Ratio] 12.8 % Normal 11.0-15.0 [facility] Comment on above: Performed By: #### B OX #### [facility] [address] [place] [address] Dr. Jeronimo Melgar Hematocrit (Bld) [Volume fraction] 43.7 % Normal 36.0-48.0 [facility] Comment on above: Performed By: #### B OX #### [facility] [address] [place] [address] Dr. Jeronimo Melgar Hemoglobin (Bld) [Mass/Vol] 13.1 g/dL Normal 12.0-16.0 [facility] Comment on above: Performed By: #### B OX #### [facility] [address] [place] [address] Dr. Jeronimo Melgar IG # 0.02 10e3/ul Normal 0.00-0.03 [facility] Comment on above: Performed By: #### B OX #### [facility] [address] [place] [address] Dr. Jeronimo Melgar IG % 0.2 % Normal 0.0-0.5 [facility] Comment on above: Performed By: #### B OX #### [facility] [address] [place] [address] Dr. Jeronimo Melgar LYMPH # 2.6 103/ul Normal 1.2-3.8 [facility] Comment on above: Performed By: #### B OX #### [facility] [address] [address] [address] Jeronimo Melgar Lymphocytes/100 WBC (Bld) 27.3 % Normal 20.5-60.0 [facility] Comment on above: Performed By: #### B OX #### [facility] [address] [place] [address] Dr. Jeronimo Melgar MANUAL DIFF REQ NO Normal [facility] Comment on above: Performed By: #### B OX #### [facility] [address] [place] [address] Dr. Jeronimo Melgar MCH (RBC) [Entitic mass] 27.7 pg Normal 26.7-34.0 [facility] Comment on above: Performed By: #### B OX #### [facility] [address] [place] [address] Dr. Jeronimo Melgar MCHC (RBC) [Mass/Vol] 30.0 g/dL Normal 29.9-35.2 [facility] Comment on above: Performed By: #### B OX #### [facility] [address] [place] [address] Dr. Jeronimo Melgar MCV (RBC) [Entitic vol] 92.4 fL Normal 81.0-99.0 [facility] Comment on above: Performed By: #### B OX #### [facility] [address] [place] [address] Dr. Jeronimo Melgar MONO # 0.8 103/ul Normal 0.3-0.8 [facility] Comment on above: Performed By: #### B OX #### [facility] [address] [place] [address] Dr. Jeronimo Melgar Monocytes/100 WBC (Bld) 7.8 % Normal 1.7-12.0 [facility] Comment on above: Performed By: #### B OX #### [facility] [address] [place] [address] Dr. Jeronimo Melgar NEUT # 6.1 103/ul Normal 1.4-6.5 [facility] Comment on above: Performed By: #### B OX #### [facility] [address] [place] [address] Dr. Jeronimo Melgar Neutrophils/100 WBC (Bld) 63.5 % Normal 43.0-75.0 [facility] Comment on above: Performed By: #### B OX #### [facility] [address] [place] [address] Dr. Jeronimo Melgar Platelet mean volume (Bld) [Entitic vol] 10.7 fL Normal 9.5-13.5 [facility] Comment on above: Performed By: #### B OX #### [facility] [address] [place] [address] Dr. Jeronimo Melgar PLT 399 103/ul Normal 150-450 [facility] Comment on above: Performed By: #### B OX #### [facility] [address] [place] [address] Dr. Jeronimo Melgar RBC 4.73 106/ul Normal 4.20-5.40 [facility] Comment on above: Performed By: #### B OX #### [facility] [address] [place] [address] Dr. Jeronimo Melgar WBC 9.6 103/ul Normal 4.0-11.0 [facility] Comment on above: Performed By: #### B OX #### [facility] [address] [place] [address] Dr. Jeronimo Melgar CULTURE URINEon 04-19-2022 CULTURE URINE Culture Observations: LIGHT GROWTH OF MIXED GENITAL JONNY. NO POTENTIAL PATHOGENS SEEN. Normal [facility] Comment on above: Performed By: #### B OX #### [facility] [address] [place] [address] Dr. Jeronimo Melgar DRUG SCREEN RAPID (URINE)on 04-19-2022 AMP Negative Normal NEGATIVE [facility] Comment on above: Performed By: #### H IV12 #### [facility] [address] [place] [address] Dr. Jeronimo Melgar BAR Negative Normal NEGATIVE [facility] Comment on above: Performed By: #### H IV12 #### [facility] [address] [place] [address] Dr. Jeronimo Melgar BUP Negative Normal NEGATIVE [facility] Comment on above: Performed By: #### H IV12 #### [facility] [address] [place] [address] Dr. Jeronimo Melgar BZO Negative Normal NEGATIVE [facility] Comment on above: Performed By: #### H IV12 #### [facility] [address] [address] [address] Jeronimo Melgar KRISTINA Negative Normal NEGATIVE [facility] Comment on above: Performed By: #### H IV12 #### [facility] [address] [place] [address] Dr. Jeronimo Melgar CUT-OFFS SEE BELOW Normal [facility] Comment on above: Result Comment: AMP [...] ng/mL Performed By: #### H IV12 #### [facility] [address] [place] [address] Dr. Jeronimo Melgar DRUG CUT HEADER DRUG CLASS TEST SYSTEM CUT-OFF CONCENTRATIONS ARE FOLLOWS: Normal [facility] Comment on above: Performed By: #### H IV12 #### [facility] [address] [place] [address] Dr. Jeronimo Melgar mAMP Negative Normal NEGATIVE [facility] Comment on above: Performed By: #### H IV12 #### [facility] [address] [place] [address] Dr. Jeronimo Melgar MTD Negative Normal NEGATIVE [facility] Comment on above: Performed By: #### H IV12 #### [facility] [address] [address] [address] Jeronimo Melgar OPI Negative Normal NEGATIVE [facility] Comment on above: Performed By: #### H IV12 #### [facility] [address] [address] [address] Jeronimo Melgar OXY Negative Normal NEGATIVE [facility] Comment on above: Performed By: #### H IV12 #### [facility] [address] [address] [address] Jeronimo Melgar PCP Negative Normal NEGATIVE [facility] Comment on above: Performed By: #### H IV12 #### [facility] [address] [address] [address] Jeronimo Melgar PPX Negative Normal NEGATIVE [facility] Comment on above: Performed By: #### H IV12 #### [facility] [address] [address] [address] Jeronimo Melgar TCA Negative Normal NEGATIVE [facility] Comment on above: Performed By: #### H IV12 #### [facility] [address] [address] [address] Jeronimo Melgar THC Negative Normal NEGATIVE [facility] Comment on above: Performed By: #### H IV12 #### [facility] [address] [address] [address] Jeronimo Melgar GLYCOHEMOGLOBIN A1Con 2022 ADA RECOMMENDATION SEE BELOW Normal [facility] Comment on above: Result Comment: ADA RECOMMENDED LIMIT 4.0 - 6.0 ADA THERAPEUTIC TARGET < 7.0 ACTION SUGGESTED > 7.0 Performed By: #### A 1C #### [facility] [address] [address] [address] Jeronimo Melgar Glucose [Mass/Vol] 100 mg/dL Normal [facility] Comment on above: Performed By: #### A 1C #### [facility] [address] [address] [address] Jeronimo Melgar HbA1c (Bld) [Mass fraction] 5.1 % Normal 4.5-6.2 [facility] Comment on above: Performed By: #### A 1C #### [facility] [address] [place] [address] Dr. Jeronimo Melgar TYPE AND SCREENon 04-19-2022 TYPE AND SCREEN Negative Normal [facility] Comment on above: Performed By: #### B OX #### [facility] [address] [place] [address] Dr. Jeronimo Melgar CBC AUTO DIFFon 04-02-2022 BASO # 0.0 103/ul Normal 0.0-0.1 [facility] Comment on above: Performed By: #### C BC #### [facility] [address] [place] [address] Dr. Jeronimo Melgar Basophils/100 WBC (Bld) 0.3 % Normal 0.2-2.0 [facility] Comment on above: Performed By: #### C BC #### [facility] [address] [place] [address] Dr. Jeronimo Melgar EO # 0.0 103/ul Normal 0.0-0.7 [facility] Comment on above: Performed By: #### C BC #### [facility] [address] [place] [address] Dr. Jeronimo Melgar Eosinophils/100 WBC (Bld) 0.2 % Critically low 0.9-7.0 [facility] Comment on above: Performed By: #### C BC #### [facility] [address] [place] [address] Dr. Jeronimo Melgar Erythrocyte distribution width (RBC) [Ratio] 12.9 % Normal 11.0-15.0 [facility] Comment on above: Performed By: #### C BC #### [facility] [address] [place] [address] Dr. Jeronimo Melgar Hematocrit (Bld) [Volume fraction] 37.5 % Normal 36.0-48.0 [facility] Comment on above: Performed By: #### C BC #### [facility] [address] [place] [address] Dr. Jeronimo Melgar Hemoglobin (Bld) [Mass/Vol] 12.4 g/dL Normal 12.0-16.0 [facility] Comment on above: Performed By: #### C BC #### [facility] [address] [place] [address] Dr. Jeronimo Melgar IG # 0.05 10e3/ul Critically high 0.00-0.03 [facility] Comment on above: Performed By: #### C BC #### [facility] [address] [place] [address] Dr. Jeronimo Melgar IG % 0.3 % Normal 0.0-0.5 [facility] Comment on above: Performed By: #### C BC #### [facility] [address] [place] [address] Dr. Jeronimo Melgar LYMPH # 2.0 103/ul Normal 1.2-3.8 [facility] Comment on above: Performed By: #### C BC #### [facility] [address] [place] [address] Dr. Jeronimo Melgar Lymphocytes/100 WBC (Bld) 14.1 % Critically low 20.5-60.0 [facility] Comment on above: Performed By: #### C BC #### [facility] [address] [place] [address] Dr. Jeronimo Melgar MANUAL DIFF REQ NO Normal [facility] Comment on above: Performed By: #### C BC #### [facility] [address] [place] [address] Dr. Jeronimo Melgar MCH (RBC) [Entitic mass] 27.9 pg Normal 26.7-34.0 [facility] Comment on above: Performed By: #### C BC #### [facility] [address] [place] [address] Dr. Jeronimo Melgar MCHC (RBC) [Mass/Vol] 33.1 g/dL Normal 29.9-35.2 [facility] Comment on above: Performed By: #### C BC #### [facility] [address] [place] [address] Dr. Jeronimo Melgar MCV (RBC) [Entitic vol] 84.3 fL Normal 81.0-99.0 [facility] Comment on above: Performed By: #### C BC #### [facility] [address] [place] [address] Dr. Jeronimo Melgar MONO # 0.6 103/ul Normal 0.3-0.8 [facility] Comment on above: Performed By: #### C BC #### [facility] [address] [place] [address] Dr. Jeronimo Melgar Monocytes/100 WBC (Bld) 4.0 % Normal 1.7-12.0 [facility] Comment on above: Performed By: #### C BC #### [facility] [address] [place] [address] Dr. Jeronimo Melgar NEUT # 11.7 103/ul Critically high 1.4-6.5 [facility] Comment on above: Performed By: #### C BC #### [facility] [address] [place] [address] Dr. Jeronimo Melgar Neutrophils/100 WBC (Bld) 81.1 % Critically high 43.0-75.0 [facility] Comment on above: Performed By: #### C BC #### [facility] [address] [place] [address] Dr. Jeronimo Melgar Platelet mean volume (Bld) [Entitic vol] 10.2 fL Normal 9.5-13.5 [facility] Comment on above: Performed By: #### C BC #### [facility] [address] [place] [address] Dr. Jeronimo Melgar PLT 420 103/ul Normal 150-450 [facility] Comment on above: Performed By: #### C BC #### [facility] [address] [place] [address] Dr. Jeronimo Melgar RBC 4.45 106/ul Normal 4.20-5.40 [facility] Comment on above: Performed By: #### C BC #### [facility] [address] [place] [address] Dr. Jeronimo Melgar WBC 14.4 103/ul Critically high 4.0-11.0 The [facility] Comment on above: Performed By: #### C BC #### [facility] [address] [place] [address] Dr. Jeronimo CARMICHAEL URINE PROFILEon 2 Bilirubin Ql (U) Negative Normal NEGATIVE [facility] Comment on above: Performed By: #### B OX #### [facility] [address] [place] [address] Dr. Jeronimo Melgar Clarity (U) CLEAR Normal CLEAR [facility] Comment on above: Performed By: #### B OX #### [facility] [address] [place] [address] Dr. Jeronimo Melgar Color (U) YELLOW Normal YELLOW [facility] Comment on above: Performed By: #### B OX #### [facility] [address] [place] [address] Dr. Jeronimo FLORES A micrscopic examination will be performed if indicated. Normal [facility] Comment on above: Performed By: #### B OX #### [facility] [address] [place] [address] Dr. Jeronimo Melgar Glucose Ql (U) Negative Normal NEGATIVE [facility] Comment on above: Performed By: #### B OX #### [facility] [address] [place] [address] Dr. Jeronimo Melgar Hemoglobin Ql (U) Negative Normal NEGATIVE [facility] Comment on above: Performed By: #### B OX #### [facility] [address] [place] [address] Dr. Jeronimo Melgar Ketones Ql (U) >=80 Abnormal NEGATIVE [facility] Comment on above: Performed By: #### B OX #### [facility] [address] [place] [address] Dr. Jeronimo Melgar LEUKOCYTES Negative Normal NEGATIVE [facility] Comment on above: Performed By: #### B OX #### [facility] [address] [place] [address] Dr. Jeronimo Melgar Nitrite Ql (U) Negative Normal NEGATIVE [facility] Comment on above: Performed By: #### B OX #### [facility] [address] [place] [address] Dr. Jeronimo Melgar pH (U) 7.0 [pH] Normal 5-9 [facility] Comment on above: Performed By: #### B OX #### [facility] [address] [place] [address] Dr. Jeronimo Melgar SPEC GRAVITY 1.020 Normal 1.005-<=1.025 [facility] Comment on above: Performed By: #### B OX #### [facility] [address] [place] [address] Dr. Jeronimo Melgar UA PROTEIN TRACE Normal NEGATIVE/ TRACE [facility] Comment on above: Performed By: #### B OX #### [facility] [address] [place] [address] Dr. Jeronimo Melgar UR MICRO IND NOT INDICATED Normal [facility] Comment on above: Performed By: #### B OX #### [facility] [address] [place] [address] Dr. Jeronimo Melgar Urobilinogen Qn (U) 1.0 {Pepito'U}/dL Normal 0.2 - 1. 0 [facility] Comment on above: Performed By: #### B OX #### [facility] [address] [place] [address] Dr. Jeronimo Melgar PROF CHEM 8 (BAS METB)on Anion gap [Moles/Vol] 12.7 mmol/L Normal [facility] Comment on above: Performed By: #### B MP #### [facility] [address] [place] [address] Dr. Jeronimo Melgar Calcium [Mass/Vol] 9.1 mg/dL Normal 8.5-10.1 [facility] Comment on above: Performed By: #### B MP #### [facility] [address] [place] [address] Dr. Jeronimo Melgar Chloride [Moles/Vol] 103 mmol/L Normal 98-107 [facility] Comment on above: Performed By: #### B MP #### [facility] [address] [place] [address] Dr. Jeronimo Melgar CO2 [Moles/Vol] 23.9 mmol/L Normal 21.0-32.0 [facility] Comment on above: Performed By: #### B MP #### [facility] [address] [place] [address] Dr. Jeronimo Melgar Creatinine [Mass/Vol] 0.78 mg/dL Normal 0.55-1.02 [facility] Comment on above: Performed By: #### B MP #### [facility] [address] [place] [address] Dr. Jeronimo Melgar EGFR-AF [place] >60 Normal >=60 [facility] Comment on above: Performed By: #### B MP #### [facility] [address] [address] [address] Jeronimo Melgar EGFR-NON AF [place] >60 Normal >=60 [facility] Comment on above: Performed By: #### B MP #### [facility] [address] [place] [address] Dr. Jeronimo Melgar Glucose [Mass/Vol] 155 mg/dL Critically high 74-106 T [facility] Comment on above: Performed By: #### B MP #### [facility] [address] [place] [address] Dr. Jeronimo Melgar Potassium [Moles/Vol] 3.6 mmol/L Normal 3.5-5.1 [facility] Comment on above: Performed By: #### B MP #### [facility] [address] [place] [address] Dr. Jeronimo Melgar Sodium [Moles/Vol] 136 mmol/L Normal 136-145 [facility] Comment on above: Performed By: #### B MP #### [facility] [address] [place] [address] Dr. Jeronimo Melgar Urea nitrogen [Mass/Vol] 7.0 mg/dL Normal 7.0-18.0 [facility] Comment on above: Performed By: #### B MP #### [facility] [address] [place] [address] Dr. Jeronimo Melgar Urea nitrogen/Creatinine [Mass ratio] 9.0 mg/mg Normal [facility] Comment on above: Performed By: #### B MP #### [facility] [address] [address] [address] Jeronimo Melgar US PREG TVon 03-28-2022 [...] ANGELA SCOTT Date: 2022-03-28 16:32 Normal [facility] US PELVIS AND TRANSVAGon US PELVIS [...] CHRISTIAN KATE Date: 2021-10-17 16:35 Normal [facility] CHLAMYDIA/GONOCOCCUS MILY (SW AB/URINE/PAPon 10-14-2021 Chlamydia trachomatis, MILY Positive Abnormal Negative [facility] Comment on above: Result Comment: . Performed By: #### C T/NGNA #### [facility] [address] [address] [address] Jeronimo Melgar Neisseria gonorrhoeae, MILY Negative Normal Negative [facility] Comment on above: Performed By: #### C T/NGNA #### [facility] [address] [address] [address] Jeronimo Melgar VAGINITIS/VAGINOSIS DNA PROB Obed 10-13-2021 Lesa species Negative Normal Negative [facility] Comment on above: Performed By: #### V AGINT #### [facility] [address] [place] [address] Dr. Jeronimo Melgar Gardnerella vaginalis Negative Normal Negative [facility] Comment on above: Performed By: #### V AGINT #### [facility] [address] [place] [address] Dr. Jeronimo Melgar Trichomonas vaginalis Negative Normal Negative [facility] Comment on above: Performed By: #### V AGINT #### [facility] [address] [place] [address] Dr. Jeronimo Melgar XR foot LT min 3V*on 022 XR foot LT min 3V* [facility] [place] [address] XRay Report Signed Patient: Lia Desai MR#: [id number] : 2000 Acct:[id number] Age/Sex: 20 / F ADM Date: 07/18/21 Loc: ER Room: Type: [facility] ER Attending Dr: Ordering Provider: Oneil Ricci APRN Date of Service: 07/18/21 XR/XR foot LT min 3V*: Extremity Injury, Lower ([id number]) XR/XR ankle LT min 3V*: Extremity Injury, [...] Brewer Jr., M.D.07/18/2021 6:15 PM Dictation Location: [facility] Transcribed By: CYNDEE 07/18/211814 Dictated By: Bijan Brewer Jr, MD 07/18/211812 Signed By: 07/18/211814 [facility] XR knee RT 4V*on 05-15-2021 XR knee RT 4V* [facility] [place] [address] XRay Report Signed Patient: Lia Desai MR#: [id number] : 2000 Acct:[id number] Age/Sex: 20 / F ADM Date: 05/15/21 Loc: ER Room: Type: [facility] ER Attending Dr: Ordering Provider: [...] Ana Juan M.D.05/15/2021 8:11 PM Dictation Location: [facility]04 Transcribed By: CYNDEE 05/15/212010 Dictated By: Ana Juan II, MD 05/15/212008 Signed By: 05/15/212010 [facility] Vital Signs Date Time Vital Sign Value Performing Clinician Francisco maria 07-18-2021 16:56-0400 Body height 167.64 cm [facility] 07-18-2021 16:56-0400 Body mass index (BMI) [Percentile] Per age and sex 98.9 % [facility] 07-18-2021 16:56-0400 Body mass index (BMI) [Ratio] 44.3 kg/m2 [facility] 07-18-2021 16:56-0400 Body temperature 98.3 [degF] [facility] 07-18-2021 16:56-0400 Body weight 124.6 kg [facility] 07-18-2021 16:56-0400 Diastolic blood pressure 108 mm[Hg] [facility] 07-18-2021 16:56-0400 Heart rate 80 /min [facility] 07-18-2021 16:56-0400 Respiratory rate 18 /min [facility] 07-18-2021 16:56-0400 Systolic blood pressure 162 mm[Hg] [facility] 05-15-2021 19:47-0500 Body height 167.64 cm [facility] 05-15-2021 19:47-0500 Body mass index (BMI) [Percentile] Per age and sex 98.9 % [facility] 05-15-2021 19:47-0500 Body mass index (BMI) [Ratio] 43.7 kg/m2 [facility] 05-15-2021 19:47-0500 Body temperature 98.8 [degF] [facility] 05-15-2021 19:47-0500 Body weight 122.95 kg [facility] 05-15-2021 19:47-0500 Diastolic blood pressure 65 mm[Hg] [facility] 05-15-2021 19:47-0500 Heart rate 75 /min [facility] 05-15-2021 19:47-0500 Respiratory rate 16 /min [facility] 05-15-2021 19:47-0500 SaO2% (BldA) [Mass fraction] 100 % [facility] 05-15-2021 19:47-0500 Systolic blood pressure 144 mm[Hg] [facility] Encounters Encounter Date Encounter Type Care Provider Facility Start: 09-17-2023 End: 09-17-2023 ambulatory ROBERT MARRERO Not Available Start: 09-04-2023 End: 09-04-2023 ambulatory ZEKE [facility] Start: 09-04-2023 End: 09-04-2023 Emergency department patient visit [facility] Start: 08-26-2023 End: 08-26-2023 ambulatory ROBERT JANES Not Available Start: 07-30-2023 End: 07-30-2023 [facility] Start: 07-29-2023 End: 07-29-2023 ambulatory ROBERT JANES Not Available Start: 07-11-2023 End: 07-11-2023 Emergency department patient visit [facility] Start: 07-05-2023 End: 07-05-2023 Emergency department patient visit [facility] Start: 07-01-2023 End: 07-01-2023 ambulatory DAPHNIE CR Not Available Start: 06-18-2023 End: 06-18-2023 ambulatory ROBERT JANES Not Available Start: 06-03-2023 End: 06-03-2023 ambulatory ROBERT JANES Not Available Start: 05-26-2023 End: 05-26-2023 Emergency department [facility] Facility[facility] Start: 05-17-2023 Clinisync Result Encounter Robert Janes DO Work Phone: [facility] External [facility] Unsolicited Start: 05-17-2023 Clinisync Result Encounter Robert Janes DO Work Phone: [facility] External Department Unsolicited Start: 05-15-2023 End: 05-15-2023 Emergency department patient visit Mamie Moore Facility:[facility] Start: 05-14-2023 Chart abstracting Robert Janes DO Work Phone: [facility] Start: 05-07-2023 Documentation procedure Leah Hernandez RN [facility] Certified Nurse [facility] [employer] - [place] Start: 05-02-2023 End: 05-02-2023 ambulatory ROBERT JANES Not Available Start: 04-19-2023 Telephone encounter Leah Hernandez RN [facility] Certified Nurse [employer] - [place] Start: 04-17-2023 Telephone encounter Leah Hernandez RN [facility] Certified Nurse [employer] - [place] Start: 04-15-2023 End: 04-15-2023 Emergency department patient visit Yassine Retanacarolina Facility:[facility] Start: 04-12-2023 End: 04-12-2023 ambulatory Oneil MILLS Facility:[facility] Start: 04-05-2023 Orders Only Leah Hernandez RN [facility] Certified Nurse [employer] - [place] Comment on above: Nausea and vomiting during (Primary Dx) Start: 03-01-2023 End: 03-01-2023 Emergency department patient visit Tmo Smith Facility:[facility] Start: 02-26-2023 End: 02-26-2023 ambulatory Errol JUSTICE Facility:[facility] Start: 02-14-2023 End: 02-14-2023 ambulatory DORA MILLS Facility:[facility] Start: 11-15-2022 End: 11-15-2022 Emergency department patient visit None Provider Facility:[facility] Start: 08-25-2022 End: 08-26-2022 ambulatory Alaina Matta CNM Facility:[facility] Start: 08-11-2022 End: 08-11-2022 Emergency department patient visit Adamaris Jaeger PA-C Facility:[facility] Start: 08-08-2022 End: 08-09-[address] BALDOMERO ELLER . Facility:[facility] Start: 06-12-2022 End: 06-12-2022 ambulatory None Provider Facility:[facility] Start: 06-02-2022 End: 06-03-[address] BALDOMERO ELLER . Facility:[facility] Start: 05-18-2022 Encounter for other preprocedural examination DR BALDOMERO ELLER . [facility] Start: 05-17-2022 End: 05-17-[address] [...] DR ANA LEDESMA Facility:[facility] Start: 03-29-2022 ambulatory [facility] Facility:[facility] Start: 03-28-2022 End: 03-29-[address] BALDOMERO ELLER . Facility:[facility] Start: 10-17-2021 End: 10-18-[address] BALDOMERO ELLER . Facility:[facility] Start: 10-12-2021 End: 10-12-[address] BALDOMERO ELLER . Facility:[facility] Start: 07-18-2021 End: 07-18-2021 Emergency department patient visit [facility] Start: 05-15-2021 End: 05-15-2021 Emergency department patient visit [facility] Procedures Date Procedure Procedure Detail Performing Clinician Start: 05-17-2023 ALL CBC WITH AUTO DIFF Robert Marrero DO Work Phone: Start: 05-15-2021 X-ray of right knee Plan of Treatment Date Care Activity Detail Author Start: 05-15-2028 DTaP,Tdap and Td Vaccines (2 - Td or Tdap) DTaP,Tdap and Td Vaccines (2 - Td or Tdap) [facility] Start: 03-05-2024 Adult BMI Screening Adult BMI Screen ing [facility] Start: 03-05-2024 Tobacco Screening Tobacco Screening [facility] Start: 09-26-2023 Screening for Chlamy driss trachomatis Chlamydia Screening [facility] Start: 06-03-2023 End: 06-03-2023 Patient encounter procedure 06/03/2023 2:10 PM EST Routine [facility] [address] [place] [id number] Robert Marrero, DO [address] [place] [address] [facility] Start: 04-17-2023 End: 04-17-2023 ambulatory 04/17/2023 8:30 AM EST Initial [facility] Certified Nurse [employer] - [place] [address] [id number] [facility] Certified Nurse [employer] - [place] Start: 12-07-2022 Influenza vaccination Influenza Vacc ine [facility] Start: 2022 Screening for malign ant neoplasm of cervix Pap Smear [facility] Start: 07-18-2021 X-ray of left ankle XR ankle LT min 3V* [facility] Start: 07-18-2021 X-ray of left foot XR foot LT min 3V * [facility] Start: 10-08-2019 Adult BMI Follow Up Plan Adult BMI Follow Up Plan [facility] Start: 2013 Depression Screening Depression Scre ening [facility] Patient Education [facility] Work Phone: Patient referral [facility] Work Phone: Payers Date Payer Category Payer Medicaid [id number] 2001 Unknown [id number] 2.16.84 0.1.544377.3.579.2.593 2001 Unknown [id number] 2.16.84 0.1.061325.3.579.2.593 2001 Unknown [id number] 2.16.84 0.1.475015.3.579.2.593 2001 Unknown [id number] 2.16.84 0.1.268287.3.579.2.593 2001 Unknown [id number] 2.16.84 0.1.662174.3.579.2.593 2001 Unknown [id number] 2.16.84 0.1.478941.3.579.2.593 2001 Unknown [id number] 2.16.84 0.1.903369.3.579.2.593 2001 Unknown [id number] 2.16.84 0.1.168322.3.579.2.593 2001 Unknown [id number] 2.16.84 0.1.966792.3.579.2.593 2001 Unknown [id number] 2.16.84 0.1.159926.3.579.2.593 2001 Unknown [id number] 2.16.84 0.1.974879.3.579.2.593 2001 Unknown [id number] 2.16.8 40.1.693847.3.579.2.718 2001 Unknown [id number] 2.16.8 40.1.199100.3.579.2.718 2001 Unknown [id number] 2.16.8 40.1.291615.3.579.2.71 2001 Unknown [id number] 2.16.8 40.1.529923.3.579.2.718 2001 Unknown [id number] 2.16.8 40.1.210515.3.579.2. 2001 Unknown [id number] 2.16.8 40.1.564954.3.579.2.718 2001 Unknown [id number] 2.16.8 40.1.958591.3.579.2.71 2001 Unknown [id number] 2.16.8 40.1.858519.3.579.2.718 2001 Unknown [id number] 2.16.8 40.1.407786.3.579.2. 2001 Unknown [id number] 2.16.8 40.1.007632.3.579.2.8 2001 Unknown [id number] 2.16.8 40.1.117960.3.579.2.71 2001 Unknown [id number] 2.16.8 40.1.758293.3.579.2.1286 2001 Unknown [id number] 2.16.8 40.1.392693.3.579.2.1286 2001 Unknown [id number] 2.16.8 40.1.288333.3.579.2.1286 2001 Unknown [id number] 2.16.8 40.1.000387.3.579.2.1286 2001 Unknown [id number] 2.16.8 40.1.508391.3.579.2.1286 2001 Unknown [id number] 2.16.84 0.1.208200.3.579.2.9 2001 Unknown [id number] 2.16.84 0.1.683418.3.579.2.9 2001 Unknown [id number] 2.16.84 0.1.470153.3.579.2.9 2001 Unknown [id number] 2.16.84 0.1.694883.3.579.2.1259 2001 Unknown [id number] 2.16.84 0.1.963406.3.579.2.9 2001 Unknown [id number] 2.16.84 0.1.991833.3.579.2.9 2001 Unknown [id number] 2.16.84 0.1.012425.3.579.2.1259 1959 Unknown [id number] Self-pay Self Pay [id number] Social History Date Type Detail Facility Start: 07-18-2021 End: 05-14-2023 Tobacco smoking status NHIS Never smoked tobacco (finding) [facility] Start: 2000 Sex Assigned At Female [facility] History of tobacco use Passive smoker [facility] Start: 08-01-2022 Tobacco use and exposure Smokeless tobacco non-user [facility] Start: 03-05-2023 Alcohol intake Ex-drinker (finding) [facility] Start: 03-05-2023 End: 05-14-2023 History of Social function [facility] Start: 03-05-2023 End: 05-14-2023 Tobacco use panel [facility] Housing Instability Unknown [facility] Start: 08-14-2022 Alcohol Comment social [facility] Start: 2000 Sex Assigned At Not on file [facility] Start: 05-14-2023 Alcohol intake Lifetime non-drinker (finding) [facility] Start: 03-20-2023 [facility] Start: 05-01-2023 Gender identity Identifies as female gender (finding) [facility] Start: 05-01-2023 Sexual orientation Heterosexual (finding) [facility] Clinical Notes 06-12-2022 to 05-26-2023 [...] Keep all follow-up visits. Medicines ? Take lrxq-bjw-tscnlvr and prescription medicines only as told by [...] be an em (more content not included)... [facility] 05-15-2023 Note Education Materials Obstetrics and Gynecology [...] uri tea. ? Taking prescription medicine or qtvg-xnb-kmutnzj medicine as told by your health care [...] or sour. These include lemonade, uri prabhakar, lemon?[place] soda, ice water, and sparkling water. Things [...] food. The s (more content not included)... [facility] 05-07-2023 History of Presen t illness Narrative Letter sent to patient via [facility] and also to her My Chart regarding her missed OB intake appointment and also her MICHAEL for her Chlamydia. documented in this encounter [facility] 04-19-2023 Miscellaneous Notes Called patient to reschedule her IOB intake visit. No answer. Left message to call office to reschedule her appointment. documented in this encounter [facility] 04-19-2023 Telephone encounter Note Called patient to reschedule her IOB intake visit. No answer. Left message to call office to reschedule her appointment. [facility] 04-17-2023 Miscellaneous Notes Patient called for her OB intake per phone. No answer. Left message to call office. documented in this encounter [facility] 04-17-2023 Telephone encounter Note Patient called for her OB intake per phone. No answer. Left message to call office. [facility] 04-15-2023 Note Education Materials Gastroenterology Nausea [...] ? Low-calorie sports drinks. ? Eat bland, annq-zq-dadrqp foods in small amounts as you are able, such as: ? Bananas. ? Applesauce. ? Rice. ? Low-fat (lean) meats. ? [place]. ? Crackers. ? Avoid drinking fluids that have a lot of sugar or caffeine in them. This includes energy drinks, sports drinks, and soda. ? Avoid alcohol. ? Avoid spicy or fatty foods. General instructions ? Take royp-ytb-deiydzc and prescription medicines only as told by your doctor. ? Drink enough fluid to keep your pee (urine) pale yellow. ? Wash your hands often with soap and water for at least 20 seconds. If you cannot use soap and water, use hand broodmare barn groom. ? Make sure that everyone in your [...] doctor about eating and drinking. ? Take gtez-bfd-dzjkuyh and prescription medicines only as told by your doctor. ? Contact your doctor if your symptoms get worse or you have new symptoms. ? Keep all follow-up visits. This information is not intended to replace advice given to you by your health care provider. Make sure you discuss any questions you have with your health care provider. Document Revised: 09/29/2021 Document Reviewed: 09/29/2021 [employer] Patient Education ? 2022 [employer]. [facility] 04-12-2023 Note Patient Education Ma terials Follows:and [...] these instructions at home: Medicines ? Take umsh-xqe-zssfxyi and prescription medicines only as told by your health care provider. Do not use any prescription, tljz-lmw-wqajsft, or herbal medicines for morning sickness without [...] provider. Document Revised: 11/07/2020 Document Reviewed: 10/17/2020 [employer] Patient Education ? 2022 [employer]. [facility] 03-01-2023 Note Education Materials Pulmonary Medicine Acute [...] Follow these instructions at home: ? Take nuqe-asm-nkftvoi and prescription medicines only as told by [...] and water are not available, use hand broodmare barn groom. ? Avoid contact with people who have [...] is easier to cough up. ? Take aney-qxd-gxqmchi an (more content not included)... [facility] 02-26-2023 Note Patient Education Ma terials Follows:Disease [...] to help relieve symptoms, such as: ? Pizq-qpw-xupywsm cold medicines. ? Cough suppressants. Coughing is [...] other clear broths. General instructions ? Take ktfv-edi-gdtqcfe and prescription medicines only as told by [...] and water are not available, use hand broodmare barn groom. ? Avoid touching your mouth, face, eyes, [...] These symptoms may (more content not included)... [facility] 02-14-2023 Note Patient Education Ma terials Follows: [...] elastic wrap to support your hand. ? Cszb-tpi-mxqllib medicines to control pain. Follow these instructions [...] or lying down. General instructions ? Take bprb-vvn-hsnnpam and prescription medicines only as told by [...] provider. Document Revised: 07/13/2021 Document Reviewed: 07/13/2021 [employer] Patient Education ? 2022 [employer] How to Use Cold Therapy Cold [...] on your pr (more content not included)... [facility] 11-15-2022 Note Education Materials Orthopedics [facility] [...] by your health care provider. Stretching and wyrjd-gz-mwlabs exercises These exercises warm up your muscles [...] standing, keep y (more content not included)... [facility] 08-11-2022 Note Education Materials Obstetrics and Gynecology [...] these instructions at home: Medicines ? Take cmgs-kvk-kmyrqhg and prescription medicines only as told by [...] Where to find more information ? [employer]: acog.org ? U.[place] Department of Health and Human Services Office of Women's Health: hrsa.gov/veyjcq-sfcfgp-vxdina Contact a doctor if: ? You have [...] ? Text the Crisis Text Line at 743467. Summary ? A miscarriage is the loss [...] provider. Document Revised: 09/23/2020 Document Reviewed: 09/23/2020 [employer] Patient Education ? 2021 [employer]. [facility] 06-12-2022 Note Patient Education Ma terials Follows: [...] these instructions at home: Medicines ? Take reza-iqo-wtavvlb and prescription medicines only as told by [...] things can cause a cough. ? Take zhem-nxe-iizmagw and prescription medicines only as told by [...] provider. Document Revised: 05/13/2020 Document Reviewed: 04/13/2019 [employer] Patient Education ? 2021 [employer] Infectious Disease Pharyngitis Pharyngitis is a [...] these instructions at home: Medicines ? Take wffm-qhs-gekofka and prescription medicines only as told by your doctor. ? If you were prescribed an antibiotic medicine, take it as told by your doctor. Do not stop taking the antibiotic even if you start to feel better. ? Use throat loze (more content not included)... 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Relationship Specialty Start Date [facility] [address] [place] PCP - General Family Medicine 08/11/18 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Relationship Specialty Start Date End Date [facility] [address] [place], [place] PCP - General Family Medicine 08/11/18 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Relationship Specialty Start Date End Date [facility] [address] [place] PCP - General Family Medicine 08/11/18 Goals (unrecognized section and content) Goals may be documented in a n alternate sectionNot on filedocumented as of this encounterNot on filedocumented as of this encounterNot on filedocumented as of this encounterNot on filedocumented as of this encounter INFORMATION SOURCE (unrecogn ized section and content) DATE CREATED AUTHOR 07/27/2021 [facility] DATE CREATED AUTHOR AUTHOR'S ORGANIZ ATION 08/16/2022 [facility] DATE CREATED AUTHOR AUTHOR'S ORGANIZ ATION 06/08/2023 [facility] DATE CREATED AUTHOR AUTHOR'S ORGANIZ ATION 09/05/2023 [facility] DATE CREATED AUTHOR AUTHOR'S ORGANIZ ATION 09/18/2023 [facility] EPIC FOR RECORDS PERTAINING TO PATIENTS [...] BE BASED ON THE PRIMARY CLINICAL RECORDS. [facility]. provides no warranty or guarantee of the accuracy or completeness of information in this document.
== END 2023-10-01 10:40 | disposition home or self-care (01) ==
LOC: NOMS 10:39
PROVIDERS: Visit Provider Obstetrics & Gynecology
DX: O26.843 Uterine size-date discrepancy, third trimester (principal); Z3A.30 30 weeks gestation of pregnancy
CPT/HCPCS: 76816

== ENCOUNTER 2023-10-04 12:21 | Observation (INO) | payer OTHER, SELFPAY ==
[2023-10-04 12:35] VITALS: BP 138/86; PULSE 94; TEMP 36.7; O2SAT 98; BMI 41.8
--- NOTE | 2023-10-04 12:59 | US_ITS ---
The [address] [address] Patient Name: TEE DESAI MRN: [id number] date: 2000 Sex: F Assigned Patient Location: ER Current Patient Location: ER Accession/Order Number: [id number] Exam Date: 10/04/2023 13:30 Report Date: 10/04/2023 14:08 At the request of: MEAGAN FAITH Procedure: US OB limited EXAMINATION: US OB limited, US OB cervical length HISTORY: Vaginal bleeding COMPARISON: No relevant comparison available. FINDINGS: position: Cephalic presentation, longitudinal lie Amniotic fluid: 8.9 cm Largest fluid pocket: 3.8 cm Placenta: Anterior, grade 0. No intraplacental or retroplacental echogenic abnormality Heart rate: 141 beats minute Cervix: 3.9 cm. Mild dilation of the endocervical canal contains fluid up to 2.6 mm Incidentally noted is a nuchal cord Clinical age: 30 weeks 2 days Clinical MONIQUE: 12/11/2023 US/US OB limited IMPRESSION: No evidence of placental abruption The cervix measures 3.6 cm in length. Fluid in the endocervical canal measuring up to 2.6 mm Nuchal cord Electronically authenticated by: CHRISTIAN KATE Date: 10/04/2023 14:08
[2023-10-04 13:10] LABS: Bilirubin Urine NEGATIVE (NEGATIVE); Blood Urine NEGATIVE (NEGATIVE); Clarity Urine CLEAR (CLEAR); Color Urine LT. YELLOW (YELLOW); Glucose Urine UA NEGATIVE (NEGATIVE); Ketones Urine NEGATIVE (NEGATIVE); Leukocyte Esterase Urine NEGATIVE (NEGATIVE); Nitrite Urine NEGATIVE (NEGATIVE); Protein Urine NEGATIVE (NEG/TRACE); pH Urine 7.5 (5.0-9.0)
--- OUTSIDE RECORDS SUMMARY | 2023-10-04 13:18 | XMS_ITS | CCD ---
Author Organization [facility] Care Team Providers Care Electrician Second Name Role Phone NON STAFF Primary Care Provider LAURA Kraft Emergency Provider NICOLE Ricci Emergency Provider [phone] DAPHNIE ., DR ALEXANDRE Attending Unavailabl e KARASIK ., DR ALEXANDRE Admitting Unavailabl [facility] Unava ilable KARASIK ., DR ALEXANDRE Consulting Unavailabl e LAVINIA, DR CHRISTIAN Doyle Consulting Unavailable KARASIK ., DR ALEXANDRE Consulting Unavailabl e KARASIK ., DR ALEXANDRE Attending Unavailabl e [facility] Unava ilable KARASIK ., DR ALEXANDRE Admitting Unavailabl e ANGELA SCOTT Consulting Unavailable DINA, DR ANA Dennis Attending Unavailable DINA, DR ANA Dennis Admitting [facility] Unava ilable DINA, DR ANA Dennis Consulting Unavailable KILO ., MR CUADRA Consulting Unavailable KARASIK ., DR ALEXANDRE Attending Unavailabl e [facility] Unava ilable KARASIK ., DR ALEXANDRE Admitting Unavailabl e KARASIK ., DR ALEXANDRE Attending Unavailabl e [facility] Unava ilable KARASIK ., DR ALEXANDRE Admitting Unavailabl e KARASIK ., DR ALEXANDRE Consulting Unavailabl e JOANNE HUDSON Consulting Unavailable GAVIN ATKINS Consulting Unavailable [facility] Unava ilable KARASIK ., DR [...] KARASIK ., DR ALEXANDRE Attending Unavailabl e [facility] Primary Care Unava ilable KARASIK ., DR ALEXANDRE Admitting Unavailabl e KARASIK ., DR ALEXANDRE Consulting Unavailabl e ZIEBER, ANGELA Dennis Consulting Unavailable KARASIK ., DR ALEXANDRE Attending Unavailabl e KARASIK ., DR ALEXANDRE Admitting Unavailabl e [facility] Primary Care Unava ilable KARASIK ., DR ALEXANDRE Consulting Unavailabl e KARASIK ., DR ALEXANDRE Consulting Unavailabl e KARASIK ., DR ALEXANDRE Attending Unavailabl e [facility] Primary [facility] Unava ilable KARASIK ., DR ALEXANDRE Admitting Unavailabl e WEST, DR CHRISTIAN Doyle Consulting Unavailable REQUEST, DR TYSON LISTED Consulting [facility] Primary Care Provider Unavailable Primary Care Provider [...] Admitting Unavailable Sharma, Nelson Attending Unavailable SERVICES, [facility] Unava ilable KENDRA EDWARDS Attending Unavailable SERVICES, [facility] Unava ilable SYMONE LOZOYA Attending Unavailable RAUL HAMMOND Admitting Unavailable RAUL HAMMOND Attending Unavailable SERVICES, [facility] Unava ilable SERVICES, [facility] Unava ilable FRIES, ZEKE S Admitting Unavailable FRIES, ZEKE S Attending Unavailable SERVICES, [facility] Unava ilable JANES, ROBERT Attending Unavailable JANES, ROBERT Attending Unavailable DAPHNIE CR Attending Unavailable JANES, ROBERT Attending Unavailable JANES, ROBERT Attending Unavailable JANES, ROBERT Attending Unavailable JANES, ROBERT Attending Unavailable Allergies Allergy Classification Reported Allergen(s) Allergy Type Date of Onset Reaction(s) Facility (1 source) [facility] Drug Allergy [facility] Repository (2 sources) Azithromycin; Translations: [AZITHROMYCIN] Drug Allergy 2 [facility] Repository (5 sources) Adhesive agent; Translations: [ADHESIVE] Propensity to adverse reactions to drug 3 [facility] (6 sources) Azithromycin Drug Allergy 2 [facility] (2 sources) Macrolides And Ketolides Drug Allergy 4 Unknown [facility] (2 sources) Wound Dressing Adhesive Drug Allergy 4 [facility] (1 source) Adhesive bandage; Translations: [Adhesive Bandage] Propensity to adverse reactions (disorder) [facility] Repository (1 source) Azithromycin; Translations: [Zithromax] Drug Allergy [facility] Repository (1 source) metroNIDAZOLE; Translations: [METRONIDAZOLE] Drug Allergy 4 [facility] Repository Medications Current Medications Medication Drug Class(es) Dates Sig (Normalized) Sig (Original) [id number] 200 actuat albuterol 0.09 mg/actuat metered dose [...] 09-04-2023 Bilirubin Ql (U) Negative Normal NEG [facility] Comment on above: Performed By: #### C HILLARY CANCINO, 3040-3 #### [facility] ([id number]) [address] [place] [address] 01623 BLOOD/HGB Negative Normal NEG [facility] Comment on above: Performed By: #### C HILLARY CANCINO, 3040-3 #### [facility] ([id number]) [address] [place] [address] 12422 Color (U) YELLOW Normal YELLOW [facility] Comment on above: Performed By: #### C HILLARY CANCINO, 3040-3 #### [facility] ([id number]) [address] [place] [address] 78436 Glucose Ql (U) Negative Normal NEG [facility] Comment on above: Performed By: #### C BARAK CMP, 3039-3 #### [facility] ([id number]) [address] [place] [address] 90035 Ketones Ql (U) Negative Normal NEG [facility] Comment on above: Performed By: #### Shakeel CANCINO CMP, 3039-3 #### [facility] ([id number]) [address] [place] [address] 71010 Leukocyte esterase Test strip Ql (U) Trace Abnormal NEG [facility] Comment on above: Performed By: #### Shakeel CANCINO CMP, 3 #### [facility] ([id number]) [address] [place] [address] 54621 Nitrite Ql (U) Negative Normal NEG [facility] Comment on above: Performed By: #### Shakeel CANCINO CMP, 3039-3 #### [facility] ([id number]) [address] [place] [address] 06653 pH (U) 6.5 [pH] Normal 5.0-8.5 [facility] Comment on above: Performed By: #### Shakeel CANCINO CMP, 3039-06 #### [facility] ([id number]) [address] [place] [address] 95768 Protein Ql (U) Negative Normal NEG [facility] Comment on above: Performed By: #### Shakeel CANCINO CMP, 3039-3 #### [facility] ([id number]) [address] [place] [address] 09079 R.B.CELLS 0 /hpf Normal 0-5 [facility] Comment on above: Performed By: #### Shakeel CANCINO CMP, 3039-3 #### [facility] ([id number]) [address] [place] [address] 47550 Specific gravity (U) [Rel density] 1.020 Normal 1.003-1.035 [facility] Comment on above: Performed By: #### C BARAK, CMP, 3040-3 #### [facility] ([id number]) [address] [place] [address] 38740 SQUAMOUS EPITHELIUM 5 /hpf Normal 0-5 [facility] Comment on above: Performed By: #### C BARAK, CMP, 0-3 #### [facility] ([id number]) [address] [place] [address] 77049 TURBIDITY HAZY Abnormal CLEAR [facility] Comment on above: Performed By: #### C BARAK, CMP, 3040-3 #### [facility] ([id number]) [address] [place] [address] 07796 Urobilinogen Qn (U) 1.0 {Pepito'U}/dL Normal <1.1 [facility] Comment on above: Performed By: #### C HILLARY CANCINO, 0-3 #### [facility] ([id number]) [address] [place] [address] 85529 W.B.CELLS 2 /hpf Normal 0-5 [facility] Comment on above: Performed By: #### C BARAK, CMP, 3040-3 #### [facility] ([id number]) [address] [place] [address] 69165 COMPLETE BLOOD COUNTon 07-29 Erythrocyte distribution width (RBC) [Ratio] 13.5 % Normal 11.5-15.0 [facility] Comment on above: Performed By: #### C BC, CMP #### [facility] ([id number]) [address] [place] [address] 08168 Hematocrit (Bld) [Volume fraction] 32.1 % Low 35-47 [facility] Comment on above: Performed By: #### C BC, CMP #### [facility] ([id number]) [address] [place] [address] 19647 Hemoglobin (Bld) [Mass/Vol] 11.0 g/dL Low 11.7-15.5 [facility] Comment on above: Performed By: #### C BC, CMP #### [facility] ([id number]) [address] [place] [address] 59918 MCH (RBC) [Entitic mass] 28.8 pg Normal 27-34 [facility] Comment on above: Performed By: #### C BC, CMP #### [facility] ([id number]) [address] [place] [address] 11895 MCHC (RBC) [Mass/Vol] 34.3 g/dL Normal 32-36 [facility] Comment on above: Performed By: #### C JASMIN, CMP #### [facility] ([id number]) [address] [place] [address] 07004 MCV (RBC) [Entitic vol] 84 fL Normal 80-100 [facility] Comment on above: Performed By: #### C JASMIN, CMP #### [facility] ([id number]) [address] [place] [address] 32015 Platelet mean volume (Bld) [Entitic vol] 8.9 fL Normal 7-12 [facility] Comment on above: Performed By: #### C JASMIN, CMP #### [facility] ([id number]) [address] [place] [address] 01600 Platelets (Bld) [#/Vol] 354 10*3/uL Normal 150-450 [facility] Comment on above: Performed By: #### C JASMIN, CMP #### [facility] ([id number]) [address] [place] [address] 38794 RBC COUNT 3.82 X10E12/L Normal 3.80-5.20 [facility] Comment on above: Performed By: #### C BC, CMP #### [facility] ([id number]) [address] [place] [address] 00805 WBC (Bld) [#/Vol] 12.0 10*3/uL High 4.0-11.0 [facility] Comment on above: Performed By: #### C BC, CMP #### [facility] ([id number]) [address] [place] [address] 97459 COMPREHENSIVE METABOLIC PANE Alex 07-30-2023 Albumin [Mass/Vol] 3.0 g/dL Low 3.2-5.3 [facility] Comment on above: Performed By: #### C BC, CMP #### [facility] ([id number]) [address] [place] [address] 37070 ALP [Catalytic activity/Vol] 67 U/L Normal 39-130 [facility] Comment on above: Performed By: #### C BC, CMP #### [facility] ([id number]) [address] [place] [address] 39139 ALT [Catalytic activity/Vol] 10 U/L Normal 0-31 [facility] Comment on above: Performed By: #### C BC, CMP #### [facility] ([id number]) [address] [place] [address] 64211 Anion gap [Moles/Vol] 7 mmol/L Normal 5-15 [facility] Comment on above: Performed By: #### C BC, CMP #### [facility] ([id number]) [address] [place] [address] 36429 AST [Catalytic activity/Vol] 12 U/L Normal 0-41 [facility] Comment on above: Performed By: #### C BC, CMP #### [facility] ([id number]) [address] [place] [address] 48085 Bilirubin [Mass/Vol] 0.5 mg/dL Normal 0.3-1.2 [facility] Comment on above: Performed By: #### C BC, CMP #### [facility] ([id number]) [address] [place] [address] 67959 Calcium [Mass/Vol] 8.1 mg/dL Low 8.5-10.5 [facility] Comment on above: Performed By: #### C BC, CMP #### [facility] ([id number]) [address] [place] [address] 87240 Chloride [Moles/Vol] 108 mmol/L Normal 98-109 [facility] Comment on above: Performed By: #### C BC, CMP #### [facility] ([id number]) [address] [place] [address] 82182 CO2 [Moles/Vol] 19 mmol/L Low 22-32 [facility] Comment on above: Performed By: #### C BC, CMP #### [facility] ([id number]) [address] [place] [address] 71275 Creatinine [Mass/Vol] 0.52 mg/dL Normal 0.40-1.00 [facility] Comment on above: Result Comment: METH OD TRACEABLE TO IDMS STANDARD Performed By: #### C BC, CMP #### [facility] ([id number]) [address] [place] [address] 55599 eGFR (CKD-EPI) NON-RACE DEPENDENT >90 Normal >59 [facility] Comment on above: Result Comment: Reported eGFR is based on the CKD-EPI 2021 equation that does not use a race coefficient. Performed By: #### C BC, CMP #### [facility] ([id number]) [address] [place] [address] 13885 Glucose [Mass/Vol] 79 mg/dL Normal 65-99 [facility] Comment on above: Performed By: #### C BC, CMP #### [facility] ([id number]) [address] [place] [address] [place] [address] Potassium [Moles/Vol] 3.9 mmol/L Normal 3.5-5.0 [facility] Comment on above: Performed By: #### C BC, CMP #### [facility] ([id number]) [address] [place] [address] 20556 Protein [Mass/Vol] 6.1 g/dL Normal 6.0-8.0 [facility] Comment on above: Performed By: #### C BC, CMP #### [facility] ([id number]) [address] [place] [address] 03796 Sodium [Moles/Vol] 134 mmol/L Normal 134-146 [facility] Comment on above: Performed By: #### C BC, CMP #### [facility] ([id number]) [address] [place] [address] 56682 Urea nitrogen [Mass/Vol] 6 mg/dL Normal 5-23 [facility] Comment on above: Performed By: #### C BC, CMP #### [facility] ([id number]) [address] [place] [address] 42526 DRUG SCREEN, URINEon 024 AMPHETAMINE/METHAMP Negative Normal NEG [facility] Comment on above: Result Comment: AMPH /METH screening cut off = 1000 ng/mL Performed By: #### D FLOWER #### [facility] ([id number]) [address] [place] [address] [place] [address] BARBITURATES Negative Normal NEG [facility] Comment on above: Result Comment: Deirdre iturates screening cut off value = 200 ng/mL Performed By: #### D FLOWER #### [facility] ([id number]) [address] [place] [address] [place] [address] BENZODIAZEPINES Negative Normal NEG [facility] Comment on above: Result Comment: Vinny odiazepines screening cut off value = 200 ng/mL Performed By: #### D FLOWER #### [facility] ([id number]) [address] [place] [address] 51610 CANNABINOIDS Negative Normal [facility] Comment on above: Result Comment: Lavern abinoids/THC screening cut off value = 50 ng/mL Performed By: #### D FLOWER #### [facility] ([id number]) [address] [place] [address] 28971 COCAINE METABOLITE Negative Normal NEG [facility] Comment on above: Result Comment: Coca ine screening cut off value = 300 ng/mL Performed By: #### D FLOWER #### [facility] ([id number]) [address] [place] [address] 30665 ECSTASY Negative Normal [facility] Comment on above: Result Comment: Ecst asy screening cut off value = 500 ng/mL This report is intended for use in clinical monitoring or management of patients. Performed By: #### D FLOWER #### [facility] ([id number]) [address] [place] [address] 04542 METHADONE Negative [facility] Comment on above: Result Comment: Meth adone screening cut off value = 300 ng/mL. Performed By: #### D FLOWER #### [facility] ([id number]) [address] [place] [address] 13921 OPIATES Negative Normal NEG [facility] Comment on above: Result Comment: Opia bernadette screening cut off value = 300 ng/mL NOTE: This test is used for the detection of codeine, hydrocodone (>1000 ng/mL), morphine and hydromorphone (>900 ng/mL) in urine. Performed By: #### D FLOWER #### [facility] ([id number]) [address] [place] [address] [place] [address] OXYCODONE Negative Normal NEG [facility] Comment on above: Result Comment: Oxyc odone screening cut off value = 300 ng/mL NOTE: This test is used for the detection of oxycodone and oxymorphone in urine. Performed By: #### D FLOWER #### [facility] ([id number]) [address] [place] [address] [place] [address] PHENCYCLIDINE Negative Broad Top NEG [facility] Comment on above: Result Comment: Phen cyclidine screening cut off value = 25 ng/mL Performed By: #### D FLOWER #### [facility] ([id number]) [address] [place] [address] [place] [address] URINALYSISon 07-30-2023 Bilirubin Ql (U) Negative Normal NEG [facility] Comment on above: Performed By: #### C HILLARY CANCINO, 3040-3 #### [facility] ([id number]) [address] [place] [address] [place] [address] BLOOD/HGB Negative Normal NEG [facility] Comment on above: Performed By: #### Shakeel CANCINO CMP, 3040-3 #### [facility] ([id number]) [address] [place] [address] [place] [address] Color (U) YELLOW Normal YELLOW [facility] Comment on above: Performed By: #### C HILLARY CANCINO, 3040-3 #### [facility] ([id number]) [address] [place] [address] [place] [address] Glucose Ql (U) Negative Normal NEG [facility] Comment on above: Performed By: #### Shakeel CANCINO CMP, 3040-3 #### [facility] ([id number]) [address] [place] [address] [place] [address] Ketones Ql (U) Negative Normal NEG [facility] Comment on above: Performed By: #### Shakeel CANCINO CMP, 3040-3 #### [facility] ([id number]) [address] [place] [address] [place] [address] Leukocyte esterase Test strip Ql (U) Negative Normal NEG [facility] Comment on above: Performed By: #### C HILLARY CANCINO, 3039-3 #### [facility] ([id number]) [address] [place] [address] 80012 Nitrite Ql (U) Negative Normal NEG [facility] Comment on above: Performed By: #### Shakeel CANCINO CMP, 3039-3 #### [facility] ([id number]) [address] [place] [address] 74267 pH (U) 7.0 [pH] Normal 5.0-8.5 [facility] Comment on above: Performed By: #### Shakeel CANCINO CMP, 3 #### [facility] ([id number]) [address] [place] [address] 88787 Protein Ql (U) Negative Normal NEG [facility] Comment on above: Performed By: #### Shakeel CANCINO CMP, 3 #### [facility] ([id number]) [address] [place] [address] 21525 R.B.CELLS 0 to 1 Normal 0-5 [facility] Comment on above: Performed By: #### Shakeel CANCINO CMP, 3 #### [facility] ([id number]) [address] [place] [address] 21686 Specific gravity (U) [Rel density] 1.020 Normal 1.003-1.035 [facility] Comment on above: Performed By: #### Shakeel CANCINO CMP, 3039-3 #### [facility] ([id number]) [address] [place] [address] 69605 SQUAMOUS EPITHELIUM 2 /hpf Normal 0-5 [facility] Comment on above: Performed By: #### Shakeel CANCINO CMP, 3039-3 #### [facility] ([id number]) [address] [place] [address] 10573 TURBIDITY CLOUDY Abnormal CLEAR [facility] Comment on above: Performed By: #### C BARAK, CMP, 3039-3 #### [facility] ([id number]) [address] [place] [address] 52913 Urobilinogen Qn (U) 0.2 {Pepito'U}/dL Normal <1.1 [facility] Comment on above: Performed By: #### Shakeel CANCINO CMP, 3039-3 #### [facility] ([id number]) [address] [place] [address] 98825 W.B.CELLS 1 /hpf Normal 0-5 [facility] Comment on above: Performed By: #### Shakeel CANCINO CMP, 3039-3 #### [facility] ([id number]) [address] [place] [address] 88824 CBC AND AUTO DIFFon 07-11-19 24 ABSOLUTE BASOPHIL 0.0 X10E9/L Normal 0.0-0.2 [facility] Comment on above: Performed By: #### Shakeel CANCINO, CMP, 3039-3 #### [facility] ([id number]) [address] [place] [address] 77074 ABSOLUTE NEUTROPHIL 9.7 X10E9/L High 1.5-6.6 [facility] Comment on above: Performed By: #### Shakeel CANCINO CMP, 3039-3 #### [facility] ([id number]) [address] [place] [address] 89763 Basophils/100 WBC (Bld) 0.2 % Normal [facility] Comment on above: Performed By: #### Shakeel CANCINO CMP, 3039-3 #### [facility] ([id number]) [address] [place] [address] 43444 Eosinophils (Bld) [#/Vol] 0.1 10*3/uL Normal 0.0-0.4 [facility] Comment on above: Performed By: #### Shakeel CANCINO CMP, 3039-06 #### [facility] ([id number]) [address] [place] [address] 38982 Eosinophils/100 WBC (Bld) 0.5 % Normal [facility] Comment on above: Performed By: #### Shakeel CANCINO CMP, 3039-06 #### [facility] ([id number]) [address] [place] [address] 07076 Erythrocyte distribution width (RBC) [Ratio] 13.4 % Normal 11.5-15.0 [facility] Comment on above: Performed By: #### Shakeel CANCINO CMP, 3039-06 #### [facility] ([id number]) [address] [place] [address] 33115 Hematocrit (Bld) [Volume fraction] 37.1 % Normal 35-47 [facility] Comment on above: Performed By: #### Shakeel CANCINO CMP, 3039-06 #### [facility] ([id number]) [address] [place] [address] 78885 Hemoglobin (Bld) [Mass/Vol] 12.6 g/dL Normal 11.7-15.5 [facility] Comment on above: Performed By: #### Shakeel CANCINO CMP, 3039-06 #### [facility] ([id number]) [address] [place] [address] 54790 Lymphocytes (Bld) [#/Vol] 3.1 10*3/uL Normal 1.0-3.5 [facility] Comment on above: Performed By: #### Shakeel CANCINO CMP, 3039-06 #### [facility] ([id number]) [address] [place] [address] 12750 Lymphocytes/100 WBC (Bld) 22.3 % Normal [facility] Comment on above: Performed By: #### Shakeel CANCINO CMP, 3039-06 #### [facility] ([id number]) [address] [place] [address] 68210 MCH (RBC) [Entitic mass] 28.3 pg Normal 27-34 [facility] Comment on above: Performed By: #### Shakeel CANCINO CMP, 3039- #### [facility] ([id number]) [address] [place] [address] 56502 MCHC (RBC) [Mass/Vol] 33.9 g/dL Normal 32-36 [facility] Comment on above: Performed By: #### Shakeel CANCINO CMP, 3039-06 #### [facility] ([id number]) [address] [place] [address] 99349 MCV (RBC) [Entitic vol] 84 fL Normal 80-100 [facility] Comment on above: Performed By: #### Shakeel CANCINO CMP, 3039-06 #### [facility] ([id number]) [address] [place] [address] 92542 Monocytes (Bld) [#/Vol] 1.1 10*3/uL High 0-0.9 [facility] Comment on above: Performed By: #### Shakeel CANCINO CMP, 3039-06 #### [facility] ([id number]) [address] [place] [address] 80830 Monocytes/100 WBC (Bld) 8.0 % Normal [facility] Comment on above: Performed By: #### Shakeel CANCINO CMP, 3039-06 #### [facility] ([id number]) [address] [place] [address] 58746 Neutrophils/100 WBC (Bld) 69.0 % Normal [facility] Comment on above: Performed By: #### Shakeel CANCINO CMP, 3039-06 #### [facility] ([id number]) [address] [place] [address] 02015 Platelet mean volume (Bld) [Entitic vol] 8.3 fL Normal 7-12 [facility] Comment on above: Performed By: #### C BCA, CMP, 3039-3 #### [facility] ([id number]) [address] [place] [address] 45148 Platelets (Bld) [#/Vol] 380 10*3/uL Normal 150-450 [facility] Comment on above: Performed By: #### C BCA, CMP, 3039-3 #### [facility] ([id number]) [address] [place] [address] 11598 RBC COUNT 4.43 X10E12/L Normal 3.80-5.20 [facility] Comment on above: Performed By: #### C BCA, CMP, 3039-3 #### [facility] ([id number]) [address] [place] [address] 58084 WBC (Bld) [#/Vol] 14.0 10*3/uL High 4.0-11.0 [facility] Comment on above: Performed By: #### C BCA, CMP, 3039-3 #### [facility] ([id number]) [address] [place] [address]9314 COMPREHENSIVE METABOLIC PANE Alex 07-11-2023 Albumin [Mass/Vol] 3.4 g/dL Normal 3.2-5.3 [facility] Comment on above: Performed By: #### C BCA, CMP, 3039-3 #### [facility] ([id number]) [address] [place] [address] 16403 ALP [Catalytic activity/Vol] 65 U/L Normal 39-130 [facility] Comment on above: Performed By: #### C BCA, CMP, 3039-3 #### [facility] ([id number]) [address] [place] [address] 45355 ALT [Catalytic activity/Vol] 13 U/L Normal 0-31 [facility] Comment on above: Performed By: #### C BCA, CMP, 3039-3 #### [facility] ([id number]) [address] [place] [address] 88060 Anion gap [Moles/Vol] 4 mmol/L Low 5-15 [facility] Comment on above: Performed By: #### C BCA, CMP, 3039-3 #### [facility] [facility] ([id number]) [address] [place] [address] 53831 AST [Catalytic activity/Vol] 14 U/L Normal 0-41 [facility] Comment on above: Performed By: #### C BCA, CMP, 3039-3 #### [facility] ([id number]) [address] [place] [address] 06688 Bilirubin [Mass/Vol] 0.5 mg/dL Normal 0.3-1.2 [facility] Comment on above: Performed By: #### C BCA, CMP, 3039-3 #### [facility] ([id number]) [address] [place] [address] 93622 Calcium [Mass/Vol] 8.2 mg/dL Low 8.5-10.5 [facility] Comment on above: Performed By: #### C BCA, CMP, 3039-3 #### [facility] ([id number]) [address] [place] [address] 99404 Chloride [Moles/Vol] 107 mmol/L Normal 98-109 [facility] Comment on above: Performed By: #### C BCA, CMP, 3039-3 #### [facility] ([id number]) [address] [place] [address] 67804 CO2 [Moles/Vol] 20 mmol/L Low 22-32 [facility] Comment on above: Performed By: #### C BCA, CMP, 0-3 #### [facility] ([id number]) [address] [place] [address] 46555 Creatinine [Mass/Vol] 0.59 mg/dL Normal 0.40-1.00 [facility] Comment on above: Result Comment: METH OD TRACEABLE TO IDMS STANDARD Performed By: #### C HILLARY CANCINO, 3040-3 #### [facility] ([id number]) [address] [place] [address] 36110 eGFR (CKD-EPI) NON-RACE DEPENDENT >90 Normal >59 [facility] Comment on above: Result Comment: Reported eGFR is based on the CKD-EPI 2020 equation that does not use a race coefficient. Performed By: #### C [facility], 3039-3 #### [facility] ([id number]) [address] [place] [address] 07410 Glucose [Mass/Vol] 91 mg/dL Normal 65-99 [facility] Comment on above: Performed By: #### Shakeel [facility], 3 #### [facility] ([id number]) [address] [place] [address] 14255 Potassium [Moles/Vol] 3.9 mmol/L Normal 3.5-5.0 [facility] Comment on above: Performed By: #### Shakeel [facility], 3 #### [facility] ([id number]) [address] [place] [address] 32060 Protein [Mass/Vol] 7.1 g/dL Normal 6.0-8.0 [facility] Comment on above: Performed By: #### C [facility], 0-3 #### [facility] ([id number]) [address] [place] [address] 39946 Sodium [Moles/Vol] 131 mmol/L Low 134-146 [facility] Comment on above: Performed By: #### Shakeel [facility], 3039-3 #### [facility] ([id number]) [address] [place] [address] 64750 Urea nitrogen [Mass/Vol] 5 mg/dL Normal 5-23 [facility] Comment on above: Performed By: #### C [facility], 3040-3 #### [facility] ([id number]) [address] [place] [address] LIPASEon 07-11-2023 Lipase [Catalytic activity/Vol] 28 U/L Normal 17-40 [facility] Comment on above: Performed By: #### C BARAK, [facility], 3040-3 #### [facility] ([id number]) [address] [place] [address] SARS/FLU A+B/RSV by NAAT/Mol ecularon 07-11-2023 SARS/FLU [...] operators who are performing tests using either [employer] or [employer] systems and is limited to laboratories that [...] repeat. Fact Sheet for Healthcare Providers: https://www.fda.gov/ media/952476/downloa d Fact Sheet for Patients: https://www.fda.gov/ media/750044/downloa d Normal [facility] Comment on above: Performed By: #### C OVFLR #### [facility] ([id number]) [address] [place] [address] 51315 URINE CULTUREon 07-11-2023 Bacteria identified Cx Nom (U) CULTURE RESULTS 10-50,000 ORGANISMS/mL NORMAL UROGENITAL JONNY Normal [facility] Comment on above: Performed By: #### 6 30-4 #### [facility] ([id number]) [address] [place] [address], [address] [place] [address] URN MACROSCOPIC NURon 2023 BILIRUBIN NEHA Negative Normal NEG [facility] Comment on above: Performed By: #### N UM #### [facility] ([id number]) [address] [place] [address] 47834 BLOOD/HGB NEHA Negative Normal NEG [facility] Comment on above: Performed By: #### N UM #### [facility] ([id number]) [address] [place] [address] 09611 GLUCOSE NEHA Negative Normal NEG [facility] Comment on above: Performed By: #### N UM #### [facility] ([id number]) [address] [place] [address] 12090 KETONES NEHA 40 mg/dL Abnormal NEG [facility] Comment on above: Performed By: #### N UM #### [facility] ([id number]) [address] [place] [address] [place] [address] LEUKOCYTE ESTERASE NEHA Negative Normal NEG [facility] Comment on above: Performed By: #### N UM #### [facility] ([id number]) [address] [place] [address] 42602 NITRITE NEHA Negative Normal NEG [facility] Comment on above: Performed By: #### N UM #### [facility] ([id number]) [address] [place] [address] 38008 PH NEHA 8.0 Normal 5.0-8.5 [facility] Comment on above: Performed By: #### N UM #### [facility] ([id number]) [address] [place] [address] 73195 PROTEIN NEHA Trace Abnormal NEG [facility] Comment on above: Performed By: #### N UM #### [facility] ([id number]) [address] [place] [address] [place] [address] SPECIFIC GRAVITY NEHA 1.020 Normal 1.003-1.035 [facility] Comment on above: Performed By: #### N UM #### [facility] ([id number]) [address] [place] [address] [place] [address] UROBILINOGEN NEHA 1.0 eu/dL Normal <1.1 [facility] Comment on above: Performed By: #### N UM #### [facility] ([id number]) [address] [place] [address] [place] [address] URN MACROSCOPIC NURon 2023 BILIRUBIN NEHA Negative Normal NEG [facility] Comment on above: Performed By: #### N UM #### [facility] ([id number]) [address] [place] [address] 89591 BLOOD/HGB NEHA Negative Normal NEG [facility] Comment on above: Performed By: #### N UM #### [facility] ([id number]) [address] [place] [address] [place] [address] GLUCOSE NEHA Negative Normal NEG [facility] Comment on above: Performed By: #### N UM #### [facility] ([id number]) [address] [place] [address] [place] [address] KETONES NEHA Negative Normal NEG [facility] Comment on above: Performed By: #### N UM #### [facility] ([id number]) [address] [place] [address] [place] [address] LEUKOCYTE ESTERASE NEHA Trace Abnormal NEG [facility] Comment on above: Performed By: #### N UM #### [facility] ([id number]) [address] [place] [address] [place] [address] NITRITE NEHA Negative Normal NEG [facility] Comment on above: Performed By: #### N UM #### [facility] ([id number]) [address] [place] [address] [place] [address] PH NEHA 7.5 Normal 5.0-8.5 [facility] Comment on above: Performed By: #### N UM #### [facility] ([id number]) [address] [place] [address] [place] [address] PROTEIN NEHA Negative Normal NEG [facility] Comment on above: Performed By: #### N UM #### [facility] ([id number]) [address] [place] [address] [place] [address] SPECIFIC GRAVITY NEHA 1.025 Normal 1.003-1.035 [facility] Comment on above: Performed By: #### N UM #### [facility] ([id number]) [address] [place] [address] [place] [address] UROBILINOGEN NEHA 0.2 eu/dL Normal <1.1 [facility] Comment on above: Performed By: #### N UM #### [facility] ([id number]) [address] [place] [address], [place] [address] Coding Summaryon 05-31-2023 Coding Summary HTMLBase 64 LzzyyrxfCQf5gKq+PGhl YWQ+TJ9UESPvI58djFKb zE4rA1QTWQlTDddkHGDR ZKwFEjRcjaKaXE9xtLSn ZXJu IC8+DW3zBRNyBurkrCTy q2F4oNH9Y43jqo1uMUyt iXR9HHJoHhJfrsgiu3pc tQl1BOktVpoiYtOi JMWfmF82GAZ0uM01Gr37 qDUtbXZer8kisSl7EyGt IOLmRDU4rRzgVDjgo7Ht BKZtK13nnIJmo7D4 IGNvbGxhcHNlOyBlbXB0 pM4nYXbdhrqnq8pggosx Dws8ej15yTSdi6I4jOA9 B3LkbyM2NPRmgFUe GgmzoNYEkJ7pqskcb3ez dcpnVpEtQUOaFZm6RTe9 FCVpfZiuUnEnYC21XMH4 VVWzwwJfK2XjKUOy oRseVuI7n3A2Cv1FD1EI LtukH5ALSFFLFCsxwXI+ RY94nb61S0EwEdtyPym3 YGZqCVS7rLS4eO1z OPFsACtft2J3zOV0U4Zv fwVonk5la9gbPMTfIVsu J70zcMJfx9F6VUKzmXA1 BOAucCmpRkWliA99 Oyc+RSRtqHyog4YfCgwu t7zfz6xwjPi1XactGOBo lzTzeRbqOSI3h6QkRe1j FPYzrWX1nWV1sH8p RqOpRdL4OWjgE659JoVw mDNkJdreX99tQ1ZcjXA+ SOOeSxx6OCOwmEqyIC7j J9TsPROdncrjrYKh mOvbSC7lETQbwouyXYFj xK5tGGVsB5i2GaJeBaB2 FQpdF1KgTVOgylceZl90 bN9dNvVvOgQ2CLmx G3CvywG1ULKqaYAhXBkr OXQ5A39pu6M1PFRoLZJj IUA1rYL6tG8adTwmutzv bGVmdDsgdmVydGlj PNqoXDvjV103ELLhjDdk PkNvZGluZyBEYXRlOiAg MDIvMjMvMjAyNDwvdGQ+ HGItCTN0iPboEMSt sOTrTDkoPu4foCchjMex SB2eMHOemefvDVFapT0c TNZezRCrhWtaHC8fTJIg rjhie418EnNqLRA4 QXXszOCxZ8TbtR5bRnMs FTQmVFAzL5OfqDBjQFmi A052MKrnFcM7MJBchuVp A1GtYPFxlRerWgP1 y2C4Yi4Oz1ImocluV5Tw yFBiHyFoZbkxICx3A9Ms PjwvdHI+PT05ALKjLR07 CNu1LYL6cUlrEHdr YIRgB7ZixP0kTrBiKIXd ZGRkOyc+PHRhYmxlIHdp ZHRoPScxMDAlJyBzdHls CB8oMx1qQCBhXJEy gZcvjPIbBxGly7kpPBYz QMryFD6eoVlsR6XznPN6 OCTva7u0Vp18B85xD3Wl dXA+NOPaeWE7sHF7 oM8fOtRrGcM0QGrbE305 QmIzsCOfZhfxr5vyz1lu bJf3QnB9XLZoyxOhdXuq QJM5d1HoSy31S53a IHdpZHRoPSIxNSUiIHZh yVwlkf4xrN4wZm9+PGNv kLQ3sOG2pI6mZtMrLzM1 YWosQ901GkOzgFJx Lhykj7ktc1jtfOr7QrWa QDMetlErpSybLRX5c2Zh Go17X7AyxZmcu9GgXkz5 jw66jOUcl3N3hVC1 B3CcGBAbrgtvvOHytTek AI9dUBVhesmjVQNivW3m TSKgT7z2UgXrRjP9QCot B0KyhbJ1JVIahGUx SWHlsFCWmS6ktobtb2bu detcLoLiCXEpKTt0GSq0 SEGukMokIpJsLFO4NrF2 KQK1pFJgfJ6stHjv otgcuU5kJnx+ZRT5tOPn rMCPFQ5xWekchNM+PHRk PFS9lLnkCZbuGWQceJ0k WNQsG7s3ArMmCtJ1 RVqnH8OhkxW8NXHxePTa UPGbmIOTzA2ctcdho4ae xjuqEvCiEVUwDPd5HBa2 LWFsaWduOiBsZWZ0 LgZ3JFY4lRIvwT5ldLur gourzC7dTmo+QmlydGgg VFV3XEf5J8LyQqg0IDBv zSthZB2cpPZsERgh Ve3vwAbsiKheNX5sTGSp navwr928GlMts3zrCWBv fXQbKIldLUD8I59ki9T9 ZYTiNECfRFZ9mUG2 uA2htBktkgtpaYWrbLvp foBtnAunSRigWLzaT207 VLLmaYmsGdIxOLy3N7Ln Qjf2DBMmoTvmYR5x wIBqKNclOr8mwNyziOch XX4aMYWrmpfed090YaKw q6raFTKvnFYzKQocWCV8 W89xg1S5XKWeVLYu OFW6xYS2rY7tjGgwptjy bGVmdDsgdmVydGljYWwt JWiwJ325IYNnrQkjBhLv sWs3A3KdEnr1FWVl wBicOG8akXYuQRvxPt7l eSwonBqyZG6cVEDdemrl r018AwXse0vsFFKjgAKh NHihLPO2I72ii6E4 NDZcDXCdMYX1tBR1aY6n bGlnbjogbGVmdDsgdmVy fXbyDKlhSTryA210IRCm cDsnPlBhdGllbnQg ZZkqSXs1Q1QeVqbgiRY+ JR57MYIeLL85uPKkaVEk z1aqoMc9SaAvXAMsADE9 uMsrUZqkv2BgCXCt H94zbMObq1M6JESppYqp aVHkZnZxaAE6iV2jPIzv vnzfn2bkywllTpoct6eh ue11aU71B36jALkz ZHRoPSIzMCUiIHZhbGln vy4jbA5nSq9+PGNvbCB3 mJV4wI0pFXHyIjS5IGub B898ItJfhZNiJeut s0nsl8lrqMz2GsW7DIXr qaPspUwxRWP9j7YaYa72 V35yOCwyQFRpHVAcBMDp OCIhiOlzjk8kcG3w Ii8+XGIuxVQ4pVI6dB7b HoEjWuJ2DNdbB325SgTi rGMzElovF32cQ9IoqRZ+ AUEfVbu5RWPelJss IK7zqNUwXAbbSu5aZCP5 FjTxDnWnHCdrR5JwTAHu bgtgzrmvnIX7YBBvYBJa qQ65Xx8mbEhzTQYb xZPNmP9mwccxv3nuuecm KnZsZOIqRUc3PFk6RYRv sBfsVbQlQKS8XpI3RJU5 fYQyrU8qoDhiwomu mC7dP8EnTWWbyghlBy02 oY1zOvJzVqM6ZLiuPlk+ O6dPFeBUYYptS9eRMSDH WTsZID0TIMlhhAA+ TPQjQCA5nEwzDMqrXLDd qW6aMGLtU8e8NbBjSaU8 CHybJ7OkFLBytpuvRo89 lK1iYzZvKlD6KZrc A1MylyE7JPIirNGoWPts VSF5K10tu1O3KRUvNPJn MGS6oPS7pJ3qdUmvczni bGVmdDsgdmVydGlj CPdbPIpxX448PLEezCbn IsX1ImWmTnLqQVD9F6Fm Eqx0YIKgaQnmBX2kyXJm MTvkBo5dwItacKiq LJ0yWWNzskyhGATxzG2x UOAfuYFlcYtlQM8vWMBv xofgm610PpLaZWE5EHTl uPNhL9OgmW3oHuBy YSIlBUJsK5VezHNtFByp J155XJubNlG2KIBienXs S0TaWECypHhyIjR0s6P5 Me7jXAEDNFVywnrr dGQ+RCAwIYX9tZvpSEcc CBKrpM9mWDRrD5f6WkUb SlM5JNkrC9NhXMPjggdi Ut10tR4xIePqEsY0 PIvdH0VfqfN7SOHfsFAw UImmFXW0L44ju4Z5LOPl AMAnYSV3fKG7dD1vjPil bjogbGVmdDsgdmVy mUczPXlaCIguU449UYBe cDsnPkZFTUFMRTwvdGQ+ XCFqEAJ7qYhlVSbvIKSp iM2eSPRbT2u6IcHf MsV4JElaN9JsRHNdijje Bz10eT7oOfBdGaO3SDhe E9IgmnW6HXSueETbLAdr PAH2T71dc6B4OOFd TFFmTQI2jMH7qT7xeLgm bjogbGVmdDsgdmVydGlj TVheQDdsR901PNFtdHur MtXxQHRqBU1ljDmx dGQ+AE11ln47A5CnAekl Rym1AIZnEET3tKN9hZ1i SAGpKVlgp5U5lLQ9S5Kz lhPsqd4cj5dlYKLu HHztG47mkSQzl5N0FQFx tTX0JXNaoWqnXbGsrB34 Oyc+TAWqgEsir6MxVrpo j1wgq5hpuJw2AiAb DJTygmYplZtmKIF0x8Er Em85J57fYXcaXAUeASJk XGUuIDQzuVwhqw6icB4g Ii8+JLZroIO5tPU4 iS9hNbYnVpS4DXwyR972 PlJsvTZkGjbsk1ipf8xr nXg6BcCiDUXbhnMckSfy JGQ9j2AaVu32L1Te dMxad3KcMvv2bx27jQWa m1U6dUG0B0QnLUFsekpi tDGxdEfcYX8aWCCtuypz MQUlzH8wLQUgV9h2 TeEeHnF3QIerR4XjgxD0 ISRdzVVdUUTzsGMQcE2y pwlyg0xchcvhHxOvNTZt EWk4XCh8QDJhsZav GcUwRVV3OnI1UQK7mQCi vR5fqBdmxthhyF2gWyi+ JCg5l5uebNYuQR6mfGA3 UG26VX35oICek5P1 hIN8X1LrXRNeszerpjpf yRA4WKTuFENiaB29Zk0v oKelXe7fRTHxIJO8SYUn yECqM6QigZ4mFpRj KEYbWUSiV1RxhYEvJQos B165GSyzImA4BSXhosXu M1RgFNMrrUuaXiI9c5F4 Ru4QFX34CU49LU43 gNOpv7X7fMO3L1WfALVu rysfrncjvKY7TNDcQBIf vX02Jn3grCgiPs9yFLHw INB2JRQlzBMuY7Ku xO1iUwRrYJLmANDwB1Rp uTEuDWirE958JWyrBfC6 TPQzqcNxH2KxVFDhkWpg RaT4x7Y5Ry6CEz17 GM67DV02uCWyv5F6tFT7 H4JtPLKsikbhegovtGV0 NPOgVGQuvN57Tt8czAwp Rr0jANRjSDI4GWCd dHKsB3AczP3gLcIjIMOo RSWpU3QfaGZhGZapI189 XPvzGwM6VPSllmKmH1Cm ESCpcUlwAoG7y6K0 Ep9CBDzuqks0Q3BiNguu dHI+US66QADhCF87iURr yOUck6vemMd5MjWoGTPo JVI3sNvqWNanl2Ja ZXI (more content not included)... [facility] C Throaton 05-28-2023 C Throat Ordered by Radha. Normal throat jonny isolated No pathogens isolated [facility] Comment on above: Performed By: #### 1 [id number], [id number], [id number], [id number] #### [facility] (DEFAULT) [address] [place] [address] .QC SARS-CoV-2 (COVID-19)/Fl u/RSV (GeneXpert)on 05-26-2023 Internal Control Pass [facility] Comment on above: Order Comment: Order ed by Radha.[[email or web address]] Performed By: #### 1 [id number], [id number], [id number], [id number] #### [facility] (DEFAULT) [address] [place] [address] COVID/Flu/RSV (GeneXpert)on 05-26-2023 Flu A (GXpert COVFLURSV) Negative Normal Negative [facility] Comment on above: Performed By: #### 1 [id number], [id number], [id number], [id number] #### [facility] (DEFAULT) [address] [place] [address] Flu B (GXpert COVFLURSV) Negative Normal [facility] Comment on above: Performed By: #### 1 [id number], [id number], [id number], [id number] #### [facility] (DEFAULT) [address] [place] [address] RSV (GXpert COVFLURSV) Negative Normal Negative [facility] Comment on above: Performed By: #### 1 [id number], [id number], [id number], [id number] #### [facility] (DEFAULT) [address] [place] [address] SARS-CoV-2 (COVID-19) RNA MILY+probe Ql (Unsp spec) Negative Normal Negative [facility] Comment on above: Result Comment: Perf ormed by PCR methodology. Performed By: #### 1 [id number], [id number], [id number], [id number] #### [facility] (DEFAULT) [address] [place] [address] ED Clinical Summaryon 2023 ED Clinical Summary [facility] Emergency Department [address] [place] [address] ED Clinical Summary PERSON INFORMATION Name: LIA DESAI Age: 22 Years Sex: FEMALE : 2000 MRN: Acct#: Visit Reason: Diarrhea; Fever; Headache; Throat pain - Adult; Body aches; HEADACHE, FEVER, BODY ACHES Arrival: 05/26/2023 17:02:55 Discharge: 05/26/2023 18:57:00 LOS: 000 01:55 Check In: 05/26/2023 17:02:55 Checkout:05/26/2023 18:57:00 Address: [address] [place] [address] PCP: ROBERT MARRERO PROVIDER INFORMATION Provider Role Assigned Unassigned Yassine Maldonado MD ED Provider 05/26/2023 17:04:17 Villa Aceves RN ED Nurse 05/26/2023 17:19:42 VITALS INFORMATION Vital Sign Triage Latest Temperature Tympanic Temperature Temporal Artery Pulse Rate O2 Sat 97 % 97 % Respiratory Rate 16 br/min 16 br/min Blood Pressure /71 mmHg /71 mmHg MEDICAL INFORMATION Medications Given: Allergy Information: Adhesive Bandage; Zithromax PHYSICIAN DOCUMENTATION DISCHARGE INFORMATION: Discharge Disposition: Home Discharge Location: Home PATIENT EDUCATION INFORMATION Instructions: Hypertension, Adult, Xjpq-cm-Qobr; Nausea and Vomiting, Adult, Leiq-fy-Szst Follow-Up: With: Address: When: ROBERT MARRERO [address] [place] [address] Within 3 to 5 days DIAGNOSIS: 1:Nausea vomiting and diarrhea; 2:Elevated blood pressure reading; Diarrhea, unspecified Patient Understands: Yes - Patient/family/careg iver verbalizes understanding of instructions given Comment: Normal [facility] ED Patient Summaryon 024 ED Patient Summary [facility] - Emergency Department [address] [place] [address] PATIENT DISCHARGE INSTRUCTIONS Patient Information Name: LIA DESAI Age: 22 Years Date of : 2000 Reason For Visit: Diarrhea; Fever; Headache; Throat pain - Adult; Body aches; HEADACHE, FEVER, BODY ACHES Arrival Time: 05/26/2023 17:02:55 Primary Care Physician: ROBERT MARRERO Attending Physician: Yassine Maldonado MD Comment: Visit Diagnosis: Diagnoses This Visit Body aches ([id number]) Diarrhea ([id number]) Diarrhea, unspecified (R19.7) Elevated blood pressure reading (R03.0) Fever ([id number]) Headache ([id number] QO1H-17U5RW3O4V10) Nausea vomiting and diarrhea (R11.2) Throat pain - Adult ([id number]) The Pharmacy at [facility] is open Saturday through Saturday from 9A [...] alcohol and/or drug addiction problems; contact the [facility] 29/10 Crisis Hotline -Text 1MCSC wk [phone]. If you received any narcotics, sedation, or [...] sign any legal documents With: Address: When: JANESROBERT [address] [place] [id number] Within 3 to 5 days Medication Information: The exam and treatment you received today in the [facility] Emergency Department were for an urgent problem and are not intended as complete care. It is important for you to follow up with a doctor, nurse practitioner, or physician?s photographer assistant for ongoing care. If your symptoms [...] so we can reach you if necessary. [facility] Emergency Department has provided you with a complete list of medications post discharge. Please inform your contract admin/provider of your visit and for further instruction [...] pressure an (more content not included)... Normal [facility] Strep Aon 05-26-2023 Strep procedure control Pass Normal [facility] Comment on above: Performed By: #### 1 [id number], [id number], [id number], [id number] #### [facility] (DEFAULT) [address] [place] [address] Streptococcus A Negative Normal Negative [facility] Comment on above: Performed By: #### 1 [id number], [id number], [id number], [id number] #### [facility] (DEFAULT) [address] [place] [address] Coding Summaryon 05-20-2023 Coding Summary HTMLBase 64 IidzkqygOHc1pCf+PGhl YWQ+HB1NPVVwV32ffGHp pJ0sR6HVJBcEVqsjRNYZ NLvSYsNoohGlRK6voBFe ZXJu IC8+WJ0eUHYhRwvgmKIi g8N3sIH3E80bpc9mCIkb qQU7UGPmYpTwqwvpf2xb lWu6ZMfeAxarFlCz MDHhyS71ELT3nP22Lh50 vHRroDBxi5ljdMy7GfSl FMWqCCC2yFpmMGqfo4Lm ZVWaH69bcIXkd0R2 IGNvbGxhcHNlOyBlbXB0 lV7fZObupyzbb7trzpgr Rrg3rb14bZWpe8N7vXQ8 F6AsmiT5YAFecESh LuyodCKScB7jdipum2gd owzyZeIqWPNnAFm9EYs4 NHCffOdlDwCrFO09XRK3 LGVdhhQqP7CkGSEp hMhlIvF9t3J4Vi8HD7LJ BumwB7QOJLSLKMiamFS+ AP39pi84T7BaViifRka4 HLXqDHT4zCS1mL7j CDCeISlsd2P4aAZ1B4Vi yyLrbo1uh2gcHVIbTUzr V79msVPtl9E5FMFgcWG8 ILYfqAxdOoPkvC56 Oyc+NROmfCksr1YyGzme s1utq6jicQa4CzqnXKNy aqUjdXgbUNA2x8FeCa5n TEXstVN4rLT4dO4e YeYgSpU6GRkgF320RzSv yTGaOkbaF27qJ0YmfZO+ ERMxHsp2DQOybIboBT7s Q2TrUZGxqlvtiIJy yUtgRM7zTHUwfcjqUBJe zC0vBGVeK4l7XaFkMoR6 YIjiG0BbNSHerrfeNi19 wK5zPmKgHtN9KRkr G4UqilA2ESOusYScUHxa TFO5Q82jx1O9UDAgWBJe WOY7jDN5pG8ewSsctyzx bGVmdDsgdmVydGlj IUoeWGhsR592AWQygHql PkNvZGluZyBEYXRlOiAg MDIvMTIvMjAyNDwvdGQ+ OBTrVZM0aMemWUCj iMAcLCzbVk1fxWdtgPpn LB5lNMJbnzceBXAmvP6e NSQdhFNfzKcnSU4qIBSd gkkbp968UpCfPOE6 PMManXHpB3HdhI3fGkJb MKEaRUYpN4WgoWRzZHbe H927AIxhWaL2IVHevuLs D6OvSRNnwVbbHzU5 w8P4Fr6Qb3LpuxudQ4Tt sQVkFsIwIwmjKYu5Q3Gn PjwvdHI+AQ99DXSsBD25 CXg9BIO6rHlwSQmi EVDsR9OrqX4xDxRzCPEe ZGRkOyc+PHRhYmxlIHdp ZHRoPScxMDAlJyBzdHls YA7lMw4tUDKtFBOk yHoouHNoIyQbu8bkZCLe QYatDC0nsOzpD1PzbXD5 MBBvk3i2Nb99P53eF3Iv dXA+TUCfbKN5iOL4 lS7gTmNfMzQ2DKjlR159 NxEknBHzKgwjx8rzq5dk fVt7RsJ7KODkzhZtoZtw NNH7i9SaRw89U40l IHdpZHRoPSIxNSUiIHZh bYtjry1oeP6aZv9+PGNv hBS7vEQ9bS0bQbGyZeK2 EDbrM510DpBeoAGc Knixs3vvd4uefXw1TxEb KTNopnSqpXhsXHS2t3Do Fc67Q2UdpJgbf4NyIiz3 cn18oZWsn8Q4eYU3 Q6QfNGYgzzpguFJdrVbc SR9eDINqhfjxRISqnA1n RRHxI2b2RpPlUtZ9XYat L8UcnzU2EBJajWHh JQEyzZITiX6bucmne7ws iobdHdWdVFJkNMh6YIp7 NOQedPyrDdTlCHQ6VqA6 FJJ8kKMvnO0obWkq plvvbD4iPbt+YLX1lWSa dWUTPE0hXizuwWT+PHRk JPX9zHkoVXbwDMAomY7n JUMjI0g2XwKnZvL9 GZueL1AvnsP5FOKhfTQu FVWrxSOIkN9opdcqa0bq uncnJyPaNTKpPEd4LAz8 LWFsaWduOiBsZWZ0 GvP5DTP0qBNkaU1biRnl mohgtG0fTye+QmlydGgg CPX5ZTq0K4WcQgw2XMVi dIjpEL2yiONcYLik Jt0joLpvnGwyJE2lSQFo hqucm670MyIsi9mpXGQo cNFgTVniWNN7Q68um9M5 YRErXZHxSUO8aPE5 nY6lwJlcpvrwnXWsuWem ntVkbDgfDEdqYNoeR951 JVQhrDsgEeYkAMr7O4Fm Dcr5ILAxrIumFF7u rGAkPHufQc6biOflsHpf IT0nUJZdpgosx446BqXj l2cfMSWfzEZyBRzhWIO7 A55cq0Y8BJYsNCCy WUV9aQY5nZ9hkVukgbap bGVmdDsgdmVydGljYWwt TLdeP427WAAceWnkKeXe dUl5S3GaJsi4YIJs bXvlOU8fhHLqEYwoJs0q sUuzbVskVI7bRDHcfmkh p540RpNdo3uiBYVkhGLg DJwuPEW1P61lo6M6 PZDuGHShTXH4pZX5lS5u bGlnbjogbGVmdDsgdmVy mOmfEDtpQTafT478DQNq cDsnPlBhdGllbnQg SYqwVKv7H3ScIjshbWP+ JR34CBVaRP59wFQhuTQc a4byrNy8FwOlBVZqSTB9 xWyiTTceu3GfGOCd P70slLMkr8O5YMGcxBmq mKBsZbYspEC5tH4aTBpl qfjzd5wtnkcgRnnrg6ai cf05xO66F23cZNuj ZHRoPSIzMCUiIHZhbGln vf1bkQ8pYv4+PGNvbCB3 bOM4rH2fYZKkAeP3XSmi G633YtLxyDYzIfmc h9gjh7dsoEq9PkQ4CXJq daAgrErcIKB6y0QzHl09 V26bSZtuJDUxYNZuVFRm WZPpnIolqf6hbY8m Ii8+BJHpsVS1zXZ6lY1t MaVkVqE7RFqpW468JuCp pTWyRvprD02hF2VamIG+ EBDrPrn6MBCpmSgf EJ2ajEIrWFowHc2tTZM8 QzUwDwGlYWiqD4CzEJFw fsikmcmtlCW0VHNdQYIk bI71Rn9nbAgiXSGz cTAXyT6exegzj7dizqpv LeUnZEKvOSk6IOe3XNUv lAcsVzEcIDB3BjJ3DOP2 gLKezA2fyIccspvy rB0qP3EuQXEcmmdxQw59 yB1xZuZjBsU3HZtoOrk+ I3zMCcMCUUytF8cCHGAX GBiOQL0QUFeojXL+ EWJgXDA0nIybYBuiZUSx nX9lZSRdF4y4QoFhFdY4 TAtoM9JnEVIcxpdjCa53 nE8tDxNyBsH9TLfl K8SzwiS4QWFzaGSkPMkp JWR6Q00yu0L2QIBkQEFx CMG3eWE7yJ0ksNngwkyd bGVmdDsgdmVydGlj DPbiDTwmD792RJNxlBht YpF5KxCtCdMoEFL9V4Xg Zxx3TNHfiNetSI6vkXBp DRsuXt2xbEgieWcv KY1lAAGwmfvpBQXnbQ9n QHSidMDwnXanBT6sASGe ivbdf998UtHrCWU2GLYo rEPkD5HhdM9uUnHf XBLnGECeE0UhrKUzTCew L171ADkvHkG4ZJHjbpPm A0OiWYOipJxkSnC5q3T7 Dw1uJCRJDFAahckx dGQ+THXoWAT9bLuqYJex UTVfuD5lAFCiI2s7ErXh LuQ7MXawU8LaRCFrljsc Gt63kL2kUaQtLnK6 WJhnB0RmdpL5TLFncQPc NFjfYWN2B72tu3X8KWAa JXHrAYD1qWS6gR1shCkz bjogbGVmdDsgdmVy sRmdLHndNKzxQ592FYOd cDsnPkZFTUFMRTwvdGQ+ IRTmVMF8cNozRHepZBAi lX9dZQFbX7e7ToTq OkD2ORppS4KvFVLahnid Tg29bY4aOzQhLzF4NWzc Z2ZebdN8AIOmeFBtGTeg CIN2L51aj0S5QBBg AVNzLYR9wDX1cY6rePko bjogbGVmdDsgdmVydGlj RYrsFNarV747FATkgPbx JzIpOOOdWF6xjSin dGQ+ZM41qh53T6LtWxry Epb6GYPfVWU8kXE8kF2a MEMhVUwoe4E3zUX8R8Sb gbFmbb5cc7osNTKp PVnfN82eeZKlb4O1SGAi aWR4NRDbsWkiHaOwkP83 Oyc+JCLpdRree6LyTwam o4igr6hwnQo6SuVk CCLctvQogIfcUHY4n4Sn Un56F55tETftFPUeGCRg IXBlOCTzgYqgmu3ndA6h Ii8+HWCuxRN3kLP8 cS5xAwTcDaQ5AIrlD167 RtEsoMYzYxtal2wmh7nf mUr8NlIeYGMhalUcaLyz LKS3v9MvTp45C4Sw hYsri2JxOvs1la53dXCv t1R3hNJ4Q0QbJAUeggjo yIPjeHhlCI1rFGYolrvh YKOqnM1bUGCyF1k0 CrZzEcQ2EFujL2QxsbF6 PVDxsQVhTBHdqVRHgK1a kezmw6fbmgarOvLnIPEr KGk6OMp6GRChyQse LaWkQTX0JwK2WVN6dERx aC2yuBrdizyzlP2lHxu+ YSz5n8wxvXBbGJ9cxKF7 NR30MF67zWNqm7C0 wLR5R2FcDTIrkzkwqfoy jOD2OATcYHWqxK32Jf1g yUciQd5iRSEtXBQ3CAYr tXYpT3JvtV2uIwRm SXJkTJFtW7JozADxAYta P392GDupAaK7TUSgwjPn F0CaUDOyjIhyNxR2x8C7 Kq8ZPW29ZX63WY31 sRDlc0F6uDB1Y8OwBVCr kcjulouvoBO0BUKiNPXd sG99Kr7yxQifXv5kXYZj XKK3IREtlTZsT6Gb tA1vXjFdQLRkYCVcN6Qf qEPtYDmdX823ZWhkRdH8 UYAlsjEsG8LqDXAnyXzn KdO9o1S9Uw3DJg48 UQ23PR55fENss6U3zUZ6 V0PqPHTohbboqnkcxUB1 FTRfBIOhyX37Je3ecPlv Zr7hJBZwZPP4TCYw vRUnH6BbtA6uVuJsUKDu TPTyT9EhrTBeKMgaJ721 REnjGxR5ZUPhyuZvB4Rz PCXfqFubUsX8u5R5 Vq6WICtvstn8L0XcDcln dHI+KH68WFYfHH53sIRh tXXdu3xncNf1TwNrKHMu FPD1sOnsTWunq3Ua ZXI (more content not included)... Normal [facility] C Urineon 05-18-2023 C Urine Urine Culture ordered as a result of parameters set on specific urine dip and urine microsopic results. 15,000 cfu/ml Corynebacterium species (DIPTHEROIDS) Normal skin jonny isolated Normal [facility] Comment on above: Performed By: #### 5 [id number], [id number], [id number] ####[facility] (DEFAULT)[address] [place] [address] ALL CBC WITH AUTO DIFFon BASOPHILS ABSOLUTE AUTO 0.0 [facility] Basophils/100 WBC (Bld) 0.3 % 0.2 - 2.0 % [facility] Eosinophils/100 WBC (Bld) 0.5 % Low 0.9 - 7.0 % [facility] Erythrocyte distribution width (RBC) [Ratio] 12.2 % 11.0 - 15.0 % [facility] Hematocrit (Bld) [Volume fraction] 38.6 % 36.0 - 48.0 % [facility] Hemoglobin (Bld) [Mass/Vol] 12.3 g/dL 12.0 - 16.0 g/dL [facility] IMMATURE GRANULOCYTES ABS AUTO 0.02 [facility] Immature granulocytes/100 WBC (Bld) 0.2 % 0.0 - 0.5 % [facility] Interpretation and review of laboratory results Abnormal [facility] LYMPHOCYTES ABSOLUTE AUTO 3.1 [facility] Lymphocytes/100 WBC (Bld) 32.8 % 20.5 - 60.0 % [facility] MCH (RBC) [Entitic mass] 28.6 pg 26.7 - 34.0 pg [facility] MCHC (RBC) [Mass/Vol] 31.9 g/dL 29.9 - 35.2 g/dL [facility] MCV (RBC) [Entitic vol] 89.8 fL 81.0 - 99.0 fL [facility] MONOCYTES ABSOLUTE AUTO 0.7 [facility] Monocytes/100 WBC (Bld) 7.7 % 1.7 - 12.0 % [facility] NEUTROPHILS ABSOLUTE AUTO 5.4 [facility] Neutrophils/100 WBC (Bld) 58.5 % 43.0 - 75.0 % [facility] Platelet mean volume (Bld) [Entitic vol] 10.7 fL 9.5 - 13.5 fL [facility] TBH EO # 0.1 [facility]H PLT 211 [facility] RBC 4.30 [facility] WBC 9.3 [facility] CLINISYNC [facility] .Auto Diff 1on 05-15-2023 Auto [place] % 8 % Normal 1-12 [facility] Comment on above: Performed By: #### 1 [id number], [id number], [id number], [id number] #### [facility] (DEFAULT) [address] [place] [address] Baso Abs# 0.1 x10 Normal 0.0-0.2 [facility] Comment on above: Performed By: #### 1 [id number], [id number], 5486946, [id number] #### [facility] (DEFAULT) [address] [place] [address]83 Basophils/100 WBC (Bld) 1.0 % Normal 0.2-2.0 [facility] Comment on above: Performed By: #### 1 [id number], 24897566, 5159075, [id number] #### [facility] (DEFAULT) [address] [place] [address] 06586 Eos Abs# 0.0 x10 Normal 0.0-0.4 [facility] Comment on above: Performed By: #### 1 [id number], 80421376, 7498572, [id number] #### [facility] (DEFAULT) [address] [place] [address] 91132 Eosinophils/100 WBC (Bld) 0.2 % Low 0.9-4.0 [facility] Comment on above: Performed By: #### 1 [id number], 76711596, 0236818, [id number] #### [facility] (DEFAULT) [address] [place] [address] 12483 Lymph Abs# 2.6 x10 Normal 1.3-2.9 [facility] Comment on above: Performed By: #### 1 [id number], 63365551, 4309703, [id number] #### [facility] (DEFAULT) [address] [place] [address] 87529 Lymphocytes/100 WBC (Bld) 25 % Normal 14-48 [facility] Comment on above: Performed By: #### 1 [id number], 19890119, 6808262, [id number] #### [facility] (DEFAULT) [address] [place] [address] [place] Abs# 0.9 x10 High 0.0-0.8 [facility] Comment on above: Performed By: #### 1 [id number], 75388356, 7141909, [id number] #### [facility] (DEFAULT) [address] [place] [address] Neut Abs# 6.6 x10 Normal 1.5-9.2 [facility] Comment on above: Performed By: #### 1 [id number], 96994140, 0745399, [id number] #### [facility] (DEFAULT) [address] [place] [address] Neutrophils/100 WBC (Bld) 65 % Normal 44-88 [facility] Comment on above: Performed By: #### 1 [id number], 78387877, 5861891, [id number] #### [facility] (DEFAULT) [address] [place] [address] BMP Standardon 05-15-2023 eGFR Non AA >60 Invalid Interpretation Code [facility] Comment on above: Performed By: #### 1 [id number], 12317695, 5422240, [id number] #### [facility] (DEFAULT) [address] [place] [address] eGFR AA >60 Invalid Interpretation Code [facility] Comment on above: Performed By: #### 1 [id number], 08811378, 8435707, [id number] #### [facility] (DEFAULT) [address] [place] [address] 93509 Anion gap [Moles/Vol] 15.2 mmol/L Normal 5.0-19.0 [facility] Comment on above: Performed By: #### 1 [id number], 21071765, 5225757, [id number] #### [facility] (DEFAULT) [address] [place] [address] 54072 Calcium [Mass/Vol] 9.2 mg/dL Normal 8.9-10.3 [facility] Comment on above: Performed By: #### 1 [id number], 81856026, 1141242, [id number] #### [facility] (DEFAULT) [address] [place] [address] 16480 Chloride [Moles/Vol] 106 mmol/L Normal 101-111 [facility] Comment on above: Performed By: #### 1 [id number], 34098264, 4737030, [id number] #### [facility] (DEFAULT) [address] [place] [address] 05121 CO2 [Moles/Vol] 17 mmol/L Low 21-32 [facility] Comment on above: Performed By: #### 1 [id number], 25237602, 3350388, [id number] #### [facility] (DEFAULT) [address] [place] [address] 27600 Creatinine [Mass/Vol] 0.55 mg/dL Low 0.60-1.30 [facility] Comment on above: Performed By: #### 1 [id number], 46866839, 2305865, [id number] #### [facility] (DEFAULT) [address] [place] [address] 03089 Glucose [Mass/Vol] 75.0 mg/dL Normal 74.0-118.0 [facility] Comment on above: Performed By: #### 1 [id number], 67048215, 9490106, [id number] #### [facility] (DEFAULT) [address] [place] [address] 66674 Osmolality 266 mOsm/L Invalid Interpretation Code [facility] Comment on above: Performed By: #### 1 [id number], 31303970, 3900414, [id number] #### [facility] (DEFAULT) [address] [place] [address] 72512 Potassium [Moles/Vol] 4.2 mmol/L Normal 3.6-5.1 [facility] Comment on above: Performed By: #### 1 [id number], 39229386, 0796827, [id number] #### [facility] (DEFAULT) [address] [place] [address] Sodium [Moles/Vol] 134.0 mmol/L Low 136.0-144.0 [facility] Comment on above: Performed By: #### 1 [id number], 22032277, 3875272, [id number] #### [facility] (DEFAULT) [address] [place] [address] Urea nitrogen [Mass/Vol] 9 mg/dL Normal 8-26 [facility] Comment on above: Performed By: #### 1 [id number], 78476414, 5094234, [id number] #### [facility] (DEFAULT) [address] [place] [address] Urea nitrogen/Creatinine [Mass ratio] 16.3 mg/mg High 4.6-16.2 [facility] Comment on above: Performed By: #### 1 [id number], 17513168, 0294695, [id number] #### [facility] (DEFAULT) [address] [place] [address] Breakpoint Chem Normal [facility] Comment on above: Performed By: #### 1 [id number], 10137494, 0194474, [id number] #### [facility] (DEFAULT) [address] [place] [address] CBC w/ Auto Diffon 4 Erythrocyte distribution width (RBC) [Ratio] 12.9 % Normal 11.5-15.0 [facility] Comment on above: Performed By: #### 1 [id number], 50444880, 4444897, [id number] #### [facility] (DEFAULT) [address] [place] [address] Hematocrit (Bld) [Volume fraction] 39.2 % Normal 33.7-40.4 [facility] Comment on above: Performed By: #### 1 [id number], 35007197, 4419597, 2985432295 #### [facility] (DEFAULT) [address] [place] [address] Hemoglobin (Bld) [Mass/Vol] 13.4 g/dL Normal 11.3-15.9 [facility] Comment on above: Performed By: #### 1 [id number], 14816023, 1581649, [id number] #### [facility] (DEFAULT) [address] [place] [address] Man Diff? RBC Morph Only Invalid Interpretation Code [facility] Comment on above: Performed By: #### 1 [id number], 90249363, 8601282, [id number] #### [facility] (DEFAULT) [address] [place] [address] MCH (RBC) [Entitic mass] 29 pg Normal 24-34 [facility] Comment on above: Performed By: #### 1 [id number], 42743960, 2995547, 0046950843 #### [facility] (DEFAULT) [address] [place] [address] MCHC (RBC) [Mass/Vol] 34 g/dL Normal 26-37 [facility] Comment on above: Performed By: #### 1 [id number], 57670499, 7288974, [id number] #### [facility] (DEFAULT) [address] [place] [address] MCV (RBC) [Entitic vol] 84 fL Normal 81-100 [facility] Comment on above: Performed By: #### 1 [id number], 61278055, 8012252, [id number] #### [facility] (DEFAULT) [address] [place] [address] Platelet 228 x10 Normal 138-427 [facility] Comment on above: Performed By: #### 1 [id number], 72923681, 7956098, [id number] #### [facility] (DEFAULT) [address] [place] [address] Platelet mean volume (Bld) [Entitic vol] 8.7 fL Normal 6.3-10.2 [facility] Comment on above: Performed By: #### 1 [id number], 76385073, 2206903, [id number] #### [facility] (DEFAULT) [address] [place] [address] 68544 RBC 4.66 x10 Normal 3.70-5.30 [facility] Comment on above: Performed By: #### 1 [id number], 17396271, 8655503, [id number] #### [facility] (DEFAULT) [address] [place] [address] 04204 WBC 10.1 x10 Normal 3.5-10.5 [facility] Comment on above: Performed By: #### 1 [id number], 27774260, 4301605, [id number] #### [facility] (DEFAULT) [address] [place] [address] 11491 ED Clinical Summaryon 2023 ED Clinical Summary [facility] - Emergency Department [address] [place], [place] [id number] ED Clinical Summary PERSON INFORMATION Name: LIA DESAI Age: 22 Years Sex: FEMALE : 2000 MRN: Acct#: Visit Reason: Vomiting - ; 10 WEEKS , NAUSEA, VOMITING Arrival: 05/15/2023 13:59:38 Discharge: 05/15/2023 19:41:00 LOS: 000 05:42 Check In: 05/15/2023 13:59:38 Checkout:05/15/2023 19:41:00 Address: [address] [place] [address] PCP: ROBERT MARRERO PROVIDER INFORMATION Provider Role Assigned Unassigned Joelle Nava MATERIAL CONTROL SUPERVISOR Nurse 05/15/2023 15:05:55 Mamie Moore MD ED Provider 05/15/2023 15:56:16 Chrissy Diego MATERIAL CONTROL SUPERVISOR Nurse 05/15/2023 19:19:53 VITALS INFORMATION Vital Sign [...] With: Address: When: ROBERT MARRERO [address] [place] [id number] Business (1) Within 3 to 5 days With: Address: When: Follow up with specialist Within 3 to 5 days Comments: Your [employer] DIAGNOSIS: 1:Hyperemesis of Patient Understands: Yes - Patient/family/careg iver verbalizes understanding of instructions given Comment: [facility] ED Note-Nursingon 05-15-2023 ED Note-Nursing PT. C/O nausea and vomiting. PT. is 10 weeks with her first child. PT. has prescribed Zofran but has been out of it for 1 week. Pt. is scheduled for a Zofran pump. Pt. states that she has not been able to keep any foods or fluids down. Pt. is A&O X4. PT. has a steady gait. [facility] ED Patient Summaryon 024 ED Patient Summary [facility] - Emergency Department [address] [place] [address] PATIENT DISCHARGE INSTRUCTIONS Patient Information Name: LIA DESAI Age: 22 Years Date of : 2000 Reason For Visit: Vomiting - ; 10 WEEKS , NAUSEA, VOMITING Arrival Time: 05/15/2023 13:59:38 Primary Care Physician: ROBERT MARRERO Attending Physician: Mamie Moore MD Comment: Visit Diagnosis: Diagnoses This Visit Hyperemesis of (O21.0) Vomiting - ([id number]) The Pharmacy at [facility] is open Saturday through Saturday from 9A [...] alcohol and/or drug addiction problems; contact the [facility] 29/10 Crisis Hotline -Text 3JGCG ox [phone]. If you received any narcotics, sedation, or [...] legal documents With: Address: When: ROBERT MARRERO [address] [place], [place] [id number] Business (1) Within 3 to 5 days With: Address: When: Follow up with specialist Within 3 to 5 days Comments: Your [employer] Medication Information: The exam and treatment you received today in the [facility] Emergency Department were for an urgent problem and are not intended as complete care. It is important for you to follow up with a doctor, nurse practitioner, or physician?s photographer assistant for ongoing care. If your symptoms [...] so we can reach you if necessary. [facility] Emergency Department has provided you with a complete list of medications post discharge. Please inform your contract admin/provider of your visit and for further instruction on these medications. Any specific questions regarding your chronic medications and dosages should be discussed with your primary care physician(s) and/or pharmacist. Medications That Were Updated - Follow Below Instructions [facility] [address], [place] [id number], [phone] Updated: ondansetron (ondansetron 4 mg oral tablet, [...] drinking abad (more content not included)... Normal [facility] Morphologyon 05-15-2023 RBC morphology finding Nom (Bld) Normal Normal [facility] Comment on above: Order Comment: Order added by Discern. Result Comment: some platelet clumping observed Performed By: #### 1 [id number], 48172235, 1385121, [id number] #### [facility] (DEFAULT) [address] [place] [address] UA Pthde1az 05-15-2023 UA Amorph. 1+ [facility] Comment on above: Order Comment: Urina lysis Microscopic order added on by Discern Expert Rules system. Performed By: #### 5 [id number], [id number], 4873524 ####[facility] (DEFAULT)[address] [place] [address] UA Bacteria 1+ [facility] Comment on above: Order Comment: Urina lysis Microscopic order added on by Discern Expert Rules system. Performed By: #### 5 [id number], [id number], 6016497 ####[facility] (DEFAULT)[address] [place] [address] UA Mucous 1+ [facility] Comment on above: Order Comment: Urina lysis Microscopic order added on by Discern Expert Rules system. Performed By: #### 5 [id number], [id number], 0431451 ####[facility] (DEFAULT)[address] [place] [address] UA RBC 3-[address] [facility] Comment on above: Order Comment: Urina lysis Microscopic order added on by Five minutes Expert Rules system. Performed By: #### 5 [id number], [id number], 8877441 ####[facility] (DEFAULT)[address] [place] [address] UA Squam Epi Moderate [facility] Comment on above: Order Comment: Urina lysis Microscopic order added on by [employer] Expert Rules system. Performed By: #### 5 [id number], [id number], 6584822 ####[facility] (DEFAULT)[address] [place] [address] UA WBC 5-[address] [facility] Comment on above: Order Comment: Urina lysis Microscopic order added on by [employer] Expert Rules system. Performed By: #### 5 [id number], [id number], 9893385 ####[facility] (DEFAULT)[address] [place] [address] UA w Culture if Ind Standard on 05-15-2023 Breakpoint UA [facility] Comment on above: Performed By: #### 5 [id number], [id number], 0223590 ####[facility] (DEFAULT)[address] [place] [address] 61009 Color (U) Yellow Normal [facility] Comment on above: Performed By: #### 5 [id number], [id number], 7642593 ####[facility] (DEFAULT)[address] [place] [address] 27171 Culture? Indicated Invalid Interpretation Code [facility] Comment on above: Result Comment: Resu lt created by rule GL_MAGR_ADD_UA_CULT Result created by rule GL_MAGR_ADD_UA_CULT Result created by rule GL_MAGR_ADD_UA_CULT1 Result created by rule GL_MAGR_ADD_UA_CULT Performed By: #### 5 [id number], [id number], [id number] ####[facility] (DEFAULT)[address] [place] [address] 89633 Glucose (U) [Mass/Vol] Negative Normal [facility] Comment on above: Performed By: #### 5 [id number], [id number], 3947586 ####[facility] (DEFAULT)[address] [place] [address] 52387 Ketones Ql (U) >=80 Normal [facility] Comment on above: Performed By: #### 5 [id number], [id number], 0946984 ####[facility] (DEFAULT)[address] [place] [address] 07052 Micro? Indicated Invalid Interpretation Code [facility] Comment on above: Result Comment: Resu lt created by rule GL_MAGR_ADD_UA_MICRO Performed By: #### 5 [id number], [id number], 5268564 ####[facility] (DEFAULT)[address] [place] [address] 10229 UA Bilirubin MODERATE Abnormal [facility] Comment on above: Performed By: #### 5 [id number], [id number], [id number] ####[facility] (DEFAULT)[address] [place] [address] 70433 UA Blood Negative Normal NEGATIVE [facility] Comment on above: Performed By: #### 5 [id number], [id number], 5962341 ####[facility] (DEFAULT)[address] [place] [address] 16002 UA Clarity SL CLOUDY Abnormal CLEAR [facility] Comment on above: Performed By: #### 5 [id number], [id number], 6485272 ####[facility] (DEFAULT)[address] [place] [address] 33193 UA Leuk Est Negative Normal NEGATIVE [facility] Comment on above: Performed By: #### 5 [id number], [id number], 0704311 ####[facility] (DEFAULT)[address] [place] [address] 89809 UA Nitrite Negative Normal NEGATIVE [facility] Comment on above: Performed By: #### 5 [id number], [id number], 1006943 ####[facility] (DEFAULT)[address] [place] [address] 12596 UA pH 6.5 Normal 5-8 [facility] Comment on above: Performed By: #### 5 [id number], [id number], 6501693 ####[facility] (DEFAULT)[address] [place] [address] 87490 UA Protein 30 Abnormal NEGATIVE [facility] Comment on above: Performed By: #### 5 [id number], 1538893241, 4388292 ####[facility] (DEFAULT)[address] [place] [address] 96147 UA Spec Grav >=1.030 Normal 1.001-1.035 [facility] Comment on above: Performed By: #### 5 [id number], [id number], 7577787 ####[facility] (DEFAULT)[address] [place] [address] 94191 UA Urobilinogen 1.0 mg/dL Normal 0.2-1.0 [facility] Comment on above: Performed By: #### 5 [id number], [id number], 4615137 ####[facility] (DEFAULT)[address] [place] [address] 01134 Urine Source Clean Catch Normal [facility] Comment on above: Performed By: #### 5 [id number], [id number], 0543224 ####[facility] (DEFAULT)[address] [place] [address] hCG Quantitativeon hCG Quantitative 892082.0 mIU/mL High 0.0-0.6 [facility] Comment on above: Performed By: #### 1 [id number], 02281662, 5369379, [id number] #### [facility] (DEFAULT) [address] [place] [address] Coding Summaryon 05-02-2023 Coding Summary HTMLBase 64 RpnxpgmmIVb6vXl+PGhl YWQ+TY5IRKFvP46yhUIj xB3eA0STUFyCKsylPYES XFfEVvGwhrKxMQ9njUHp ZXJu IC8+JC8gBYTtDfnqzIHl m5A3dUC1Q96ggr8tLRll zJZ4OKXuHbYxwkdgg8gu kRe0LKzgLcpgXhVa WZKyyW70BFZ6zS17Ln34 mWGmzWMsx0krcHb8ZsKx GDLgKPD1tYyxCYpon6Yp IWVtI84pvRSks3T5 IGNvbGxhcHNlOyBlbXB0 sR0vDWpreuqlk1ywrszq Jgi0wp47qEGlj4H5mQB2 P2SdfeG9FTExuAIt IwghmPSFfZ1flbxgn3ir wguzFeZoIKFoRWw8MSl1 IFQbkPelArGcPF40EON3 CJVuvpQrM4LePORz qWbgIeC2n1I1Sn0BR1LH HyikH0WNLSMFHQgovMD+ TP88tw41E8LqMvpaTqv3 QROwJCI2lSD1jE9h GVBrEKvaa6P5pCQ1I6Zp vyXqbc6xi1csZBMyUHoo M44lsANwt7P3IRRskNM6 BBJivWlxAjSpzV00 Oyc+OGEquUtnc8LyXkgh l5ith0bqeKg3KlduGVTv tpXpsZmnDSH1f0CvQk4f EIIpzAO6bYW4qZ4v HqNyMqV1EGcsV158QgIf vMGdUteiV09bR7GvqRC+ VPObOwk3OIVudJypNB3y Y9WsVJVrmmzzhAWx tPzkXO6jDYYcshzsMVWj tS1cMLQuH4e4HnRnSmH0 HEyqE6WmWUCipeapFz02 yJ1uReDbIrT2WZcc A9GmrqH0TUCqoFKfKEye NBM0Y03yn6G9BASfAEDc GVZ0zJC3mA2glKfihgsf bGVmdDsgdmVydGlj BGkwEBodK185WBCyhMia PkNvZGluZyBEYXRlOiAg MDEvMjUvMjAyNDwvdGQ+ BCLnYQV6aHliOHXz tFNeDLomOs3ynOljaFxg HK7rWHXttfguVJYniM1r AAUqeKUqbMzvLD6wRQRn outfn427NiPhQOJ2 NCRcuAXxL6JpxK5xQmEa AQRdPPObF1HjpUGpZAqd I162BGvnMmO0IFWmmzNz J3LtWSKhvRqrSpT5 j9M8Zu8Fh7DccqczS4Le oZSlGyJrZfzwNWa8V4An PjwvdHI+AR78YDFmRA93 EMi3HJR4cUjiUCun XTMrR4TlsX4jBdWpEEYl ZGRkOyc+PHRhYmxlIHdp ZHRoPScxMDAlJyBzdHls MP9gUo4iDSXfFCIk eEiywVSdHvXon0qeIJCb UNrhMR1anUpmB0BmqOY4 LOEfp5h7Sw28O25yB2Vi dXA+MMYvbBI2lOS6 lY1aEtFaRfR6HSweI575 SwDhaVBaJggfe3idh5fq vIe9EsW4ZYOqukPbbKmc PBY1j2DwBm98S55m IHdpZHRoPSIxNSUiIHZh zZrrcv1spY5dIf7+PGNv lBW7eIQ6aL5xVtRbEjF5 BUwvJ082LiTfkELr Vfptt3czl9jfhFn5HvTm YRNfsjRrjHoqFIB5p8De Fe93B4OxrZhcp4JkFsj6 ai28jOIde2J4rAZ6 F5TnZQMoseobtBExlReu EW6xDPKvtodvBLNebW2k WPYfF9q0BkUhZhX8XDnm J5CrevK8AXSdnEZr VFBcoTNFnV3lmnxqc4xh flpmYlSzFBMmLCt7YGu7 JFLccWbfWyHySNX5WjY7 VFG2rBDftB8bbEig laktkS3oAnf+MST5dKHk rPAZBR4eJyrniHZ+PHRk DFT0pKslFHiwNIZwqU6g XOVqV5c3EvVeYkI0 FTnxF4GhnuU6OTGarJIe ONIwuNNToK4vbhmux4qh rdgdGjKzSQBfBUi7YXw2 LWFsaWduOiBsZWZ0 AhT4SSC9tLYonO7jiMrh itfqiP4jFem+QmlydGgg FYK4BSf0J6OuRiq1HFCs aNczVU1myXRhEPcq Jk3etUthjHesWW4yBCKz mxvws377EoYjk7xoBSLi mXAoZBiqOVV3T46fk0A2 TJAeWERjOVD2qSO0 lS2atPabdmuqdSSiaRxl sxIhgWwnZKmhGCnpZ012 BSWfhStfKkJrTRe1L0Sj Wwr7OCSdiXckVV6y jPLcWXscEl3dfJbixMnd AB1tAEXgwiefj745HvVd q8iaVIVmwKDeMUhhWUU5 A72ul5T7AGDhNOGl BBX5cBY8zS4waPwcyywr bGVmdDsgdmVydGljYWwt GOomX513JTRhkYnuNbXm dSb5O4SySjm9NAFn pFmgDM8qsWIxFCeyQj1f zZvgdDhqEH8eCEUkjfoq j152PjBrn1mdLQZflJOe VFfbMTC1P93vz6O2 ELZjLVOfSTG0dOP2nL8j bGlnbjogbGVmdDsgdmVy eLnqAQyoUTqiH748MOQp cDsnPlBhdGllbnQg WVusIVp2U4MvNuuqfIR+ VS02HGYqTZ21cIAriFFu g6eefNd9CoIlYXWmRJO5 xOzcEXmuc2CeMQYp K50pdRAsh4K4YTCsjDco zURjJjZwfWP7wF7mBLpu ljvzg1vmhmyyAkwba3jm rb04pY30N68vXHbx ZHRoPSIzMCUiIHZhbGln ei7vtX0hQs7+PGNvbCB3 nUC5uR6lMZUlUbC4KVuk F126OdPbkZRlIsin b4zba2ttzCs4EkO4DXRg ddQemVcwOTT2g2VrWq12 J59vPNysNPHsRQNvQTKm TTJkbXzpgs8xeI6a Ii8+HIDtoXP7qXU2lX1n NmHeUbF6YAjgF606OeKh dXNzPpzbD73wS0SadHS+ CFFuWtc6HTVmyTqb CN3olMYfRZurIq9uUKP1 VbNlAkTlADvpF2VnSCLv cglesxpodAH2PINzBNQh oI58Xj6hkYhbCYMa rZKRuR2bbgvox3jdtxhx QjZpJHOfELm9KBb0FVKk mUonSfIwQQW0KrE7NGR3 oELlvM3bkCcezyco dJ4qL9HtDJGdqbwgOz43 bC8eWfFrCnH6BMxzMbr+ U1mGOxRKYFhbZ0uDSIBS QWnZOX6EPVgnvRS+ OXXkVYG5qLwjBOjzMCHz oS9gMFKgT0t0UkHzDhF5 MIlrF6GpSKCejchdRj71 nX2bShRvWuR8JAif S8GatsU7MSMkjTAiJBgp BXO3T83re8W1YVTuWGZu WWJ1xHR6fU3zyWdfrrvs bGVmdDsgdmVydGlj FPtpKSntT737YTBpfHwy FtG1UaSoLvBlUVO8M7Pr Dhi0QGOafJqvTX7igAQl KVkqQj2jbFmbqDfp FU2oFNWutecvBBLxmL3a YFLkpAJiyLcmJU6qTAQh mfott759YnJwGNO1JSGf hBUpX6ClsL9oAaTs GUXmKRPxH8AscDNaVOiv F005ESiuWhU1QXBhkmCn A6PkTQOrlUyzUvY8w8U1 Go9dXQDXZCGbgnsv dGQ+JAKyXLR1gMzsNLed UPTfnE4mRVVhO2c7YlXn SoM3IQgkY7XxCFCbwfkr Uz17nL7aQaNzAlR1 KYsrH4VcuvG1IBBlxPKa WIueYHJ9P93mq9Q7GBTr DUXdJSK1vFO3uX5xmFwc bjogbGVmdDsgdmVy eDutNJdfZMupD408HGMf cDsnPkZFTUFMRTwvdGQ+ LTQqPZI6wSbwULweTDUn kX9vLHAlJ5t2MfEj IiM4ZJjlC7CvMCSudjib Wc81uT9rVxMnKmU0AFtk Z9HycvB2ELXleMIoLOwg GZG6G00pl9G1ZITd WEMbEEL0oPN0lA4gyZyv bjogbGVmdDsgdmVydGlj SQpyTMtfR917UMKjzKeb XoOkWMLuKU5lrLrr dGQ+BA77qc79H8FaYyow Epj7JEArVML8zYV4mX7p CGQvWRguq1M5xCQ4Z8Wm jgThac4jb2phHIUj GPqfA96xjFFtc0X9BSYb xTB9GXBgqVsoDxHtaL09 Oyc+ZWNgkQbpt2DnVxar m1ppo4nbmRj7JkDg NHYrvnPpsZlnHJC0x3Gk Bm31W26oKCpbKAShXTDk ZBWcRRIyyBkrkr7fnK1h Ii8+QMIuaUJ8sYL7 eY9zAsIsSgU1FKyuP438 BuXvzJPpOjans2gyw2jd xPu9LxLlDPGkhiMroJcn BLQ4t7IuQu15M1Ev lXybq3AcDxh2se44xCYo c9O3wFE5V6PaKDZggzay zTMggZdsTG1zEMSdkdok BTFocD9zTMJyI3q8 VfZqDbP4HTakN4LteaK0 SDDmtTSqLDBzpGYHmO8v mynax0gzzmzgPjGaYZMg UMj1LEt8ZNYxoIba JqHyETY7VsT6ACH4oCPz iO9jqUajychvyQ1kDjj+ REy9b3ftqVKkJY5khYR6 NL23YA20hZYdh0M5 yWE3B2SyCUYwtuajnmvg yYP7MGLyKAPbaO38Mf8u pCnoNh9sEBKjMAU7YUJl rKHsL1WrhW3dEtQb GFKyKVMmB7RyeHSpYLtx Q889DWqsRgQ2PAWzufZv H5InEAWfiQohWyE7t5F3 Wd3UIQ09TO25RL12 vBXlz7I6jXW1D2VlXKEn ljmywgjjkJU7GXMvSZEn uR81Uq5zdZmmDm7qAMLe KJG7XPDutTRyK0Sn jH0lQlQkIZGcNETbI5Qc tGCuZSblB415BHlsLzB1 IEDjkvEfR5VfYCOkjHrk CbB0q1B8Rf4IWc43 VJ48OF73pRIcc5J8uGO6 V3QwEJRbveycbrcrcRQ4 VMRhZWHdxS45Uc0wuRia Bw5iGREsJGN9JYZj rBReP0SzvY5yNkOoOKOh LTMgO3LsgRPbXQajO145 MPybYhA6OGZillXhH7Eo LQRlpPgpZlY3n8Y4 Hu4DTHyhvuz2A0KuXziy dHI+MW28NGFxEE84vSYh cKMnb1dsxCb1PmEmIFMf MTS8oIlxISlps8Ae ZXI (more content not included)... [facility] Coding Summaryon 05-01-2023 Coding Summary HTMLBase 64 GfjjurmtRAd9vYu+PGhl YWQ+DJ3IBWJlJ94yvSHt nU9xY6UFKIaZGwuiXNLW MZpUTwIudnTiOE3fuALt ZXJu IC8+MS1bMEKiBktzrDHv d4B8uAV9N95ync3oFUcw uYV3ZQMzAcVnsbofq6dn eVf9TYtiIhsgNzKz KPTsaU61WFF2jF39Yn10 cMQhrMXvz8qngEd0JsCe URJgEMJ2iFufJVmug3Ix FPCyG66bhOYjl6L9 IGNvbGxhcHNlOyBlbXB0 tR2jXSzmhpslq4qfnswp Ysr4hz63gPAmm2Z1aPF4 O7FiraE2WQOghIYh HrnjgVENkS7qzymlx3vx kjilVnMzGAZtMIf1FMv5 UJMrkZlaLqShWT93KFY6 IKOatdXfN0YsUYJf wMkuRdQ5a5L7Ti6LQ5VN PrhnL3LFNJNCTHdhwCT+ IM15cs73Q2VvGsboMkr5 OFXpAWE2uZN9jA7k CYSoWTmln5G7eOG4X2Oz rtKiuw8ey9wdEVRuRPpq T30ptUAlr5S6WFWbpWT7 GCZbmNcrBmFgdA72 Oyc+DCUxzCbry6ApHnhc x9ikl0xxdOj5HfikYPHb htBdbXjaXXE9c9DuAa8k XREgbXI5tEY3nW5s FxRlWjE3QXisB894HaYz bNTrOpoeS65oJ6KwuCC+ JLLnYjx3HJRedMonQF1p U8DiQRJxcxkqnGSb bLoyGO9qYYKhetajNIRn iR9pYATqD3q4SmYaGzL4 MHpmU1PtDFWtwdafQu72 hM9cNrXmBkQ2PZxp Q6PysmT7RZMrdSRsHPeo CZI0N75zw0I7XHTqDBSf ZAQ9tVA8bW0jrWygbbio bGVmdDsgdmVydGlj KYgbQGyhN986HXGpsLna PkNvZGluZyBEYXRlOiAg MDEvMjQvMjAyNDwvdGQ+ XKLgOKX7dUqgTDXs mMMzMEkqUy4dzMdafBqk CI8cNMQtdotlBNLjjK1o LPSidQCriTtjBH2pXMAo sduvu697MpOxONT6 ERNltKMrY6GxvF3hRkTn NRSvRXImL4TgbGGwJPkh S408WFfsYaC0HPUsxlSt L0VyWWGnpOdkFgT3 n6L3Zk7Np1ErqqqkV8Jf jOQoHsZqGxseWZp8L5Ts PjwvdHI+GU52SWMcSU78 SWj7DJT1kMaoNVcq EHExA8CijL3kGrTcUAVk ZGRkOyc+PHRhYmxlIHdp ZHRoPScxMDAlJyBzdHls EE9tMd3pOSIdQEZn oJilwEIzSkOwa4bjCNAq JFpuDW1dcTxsM9NuhUX2 PESfn8j5Gd10G56zG3Zi dXA+UQBaoSQ1rUJ2 oV2jLiEgJoF6ASpuY249 EnQqtJToCploh6uau8pa lMx4ThI0CNPvfaSwpFef UGX0o4AwTh10D39e IHdpZHRoPSIxNSUiIHZh yMetfg5ulM4qWv1+PGNv hWC0mGC3kA9sZeZoEkA0 QZsfY784RjSsnJCp Kospd2xmk1dhuHq4KgGy VYKpbhNknSdwZFL1y0Ey Ok05L4IwpIdgc3HjNba7 mi62dABmx8T0pQG5 D2GjWYGinabotCGomHvp PW2bHYFwcfwaCRXlpG9t OTYvR0o5XqGxMpS1DKeh P7NusfY9SYLasVAc QZCbaUVFqI8gpsxuy2wi xfcwQvLcCQJvNVt7PEy2 GKRuzFqpVfKxJVN3MgI3 NFP4ySTtvH7geMoe byncmN1jNqt+SXE9qLIa wMTKPK8fQxoomZD+PHRk RJU7vYggVGcnFOCfcL3j RZIaP4e2BdReBwF3 GFwdJ3PeukQ4HLThwYNi ORBmpZKMeK6misbhi0it submHaLaUWGgMPo9ILi2 LWFsaWduOiBsZWZ0 NoJ0KWP6vWAutM6vrCyd vlkelK7jJss+QmlydGgg INZ7DBz5A1HgFdh2ZKNx rBtiOR1ykPHuNRgd Am3etVumoAvbCG5vXUDr vyegl428VuAle3rlEOOi qLJjOChbCYD4V11jk9U4 AFTrEVByZLN3kYI8 dV8oeCudzjequIAfoSsn ekRnwSjiDRamXTkiS413 SCMriEidFwZnVQs9O6Ro Qkl2LVTkoVouMM3m sGBeJFcsMk3hwQtfmDyf WO9pTQWtluxrr263TzAx y1lmSUDtxLAdXFijGVD0 L42tn0W8MKOzEVDb AXI5dYA4dR1xeOrzepvg bGVmdDsgdmVydGljYWwt MGvoW480WKXqgCjkStHk rFq5K2NfAot5UTBz kAykON3hoYBxWYijRs9z zPlamZysNP9tTFFxvqbw q726VqKrr1cmUOMtfVIp VIgsIPT5G26jz4J8 OUAgJZWoTSH0rGU0eB1s bGlnbjogbGVmdDsgdmVy vAkfUYkbIEfiG826ZLFh cDsnPlBhdGllbnQg STmoLAf0Y4PgFckqhXE+ MS96TZVhVM32pGClpPOu p3hhgMj2MdNaWJXaCTA5 kRhiXKghk3OrRAEr J17lvSWro3C0OBKdfHgt pNKuPyJykUH5dX0gXXpx gqpnr4peqdybWbrwt5ps dq99zV44S96aUKyw ZHRoPSIzMCUiIHZhbGln sp1wwS2pDe6+PGNvbCB3 nEX6cY9cETWyPeW1LJak D121YmAhsSJcGxrh e1dxt1touKe4WvU0ADXu ggCmiXkuTYH5z4FaOh44 U29ePVazBNAvSRSvEJCu FKKtsWwsdw6kcU1a Ii8+RRShkDJ2aGR0bX4e SaBiCaA9FThuQ655XsTe dZYeMwfyZ36nG1IjbEU+ RJUaUel4SSQgpRxw MO8eiPHxSHbwRl0gSSX1 KjNmTkAdGYbeH5WeUMIn pcrvhmqwjOC9MZHkREWh zV38Rz9jzXftWWUw xNDFuC1tasjmy8yucdqr XpNtXKWeNMf6HLf9MAOv hTghNfJaTZS0NvA5CAH9 vQYkiV1cfIidkggo yE6gJ9MrOVAncfgpUm96 dP0qWlLbEqR7JEwmNtf+ M7wDAyZAPNrtH1bMTOGU BNwENS3FQFcylWC+ ENOlILI2pNjtIFzpRURe mJ5uVQCnR5r5YcHqPcT8 WGqpM9DpKUEgfqkwCx43 qL9lAyWsGhX0HEms M2LshiF6VWLgzCFdCRcg XTH6O31sh6Y4RJWrMQGc WGV8fGZ7qU9agFaeqakv bGVmdDsgdmVydGlj NTzfAInkP509HLBgmZpb GoV3YlZsFdQtYYK9T1Fu Txk2NXZdxXrpUS7hzSTe KEjsCh1unKceuCdq ED6jQDUtlpnlOOPwyE2g DPArbBWftPmgQY2fMTTp mgxet848QxDkKOR5EPSo bCOaI4BujB4bXgIz LFWjVVQyK6XsuYYfJKhh K823HWxfVhV7LLKbzlKm O7JwBAEklNdiQrJ6u7A7 Ri8pJXKHUOAjcsld dGQ+IBAbBRX5aYvkWLhz QLAnnJ8vQSSkC1n1NlPm ZmB4TJmxF5QeJHSiuihe Qm44wX9bNiQjYeK6 WVxzM3CtirB4FKSxaWKk NTwvOEL0I06nh3Q5IAId OMZnXLJ5fTK0jQ4drDdd bjogbGVmdDsgdmVy bWqcIFoiJXiwU444ZNKf cDsnPkZFTUFMRTwvdGQ+ BFOvQHX3oBnvOGbdRUWa dA7fTIPlC1l2CsUb YqZ0YDwiC8WuLVWmkybl Ls68yX5rVoTlNjI3MUav F1IorsQ4YFJcdRAtCDfx MML1Q12dr3A6TWWv CWUrRET0tVJ5nX7dqLok bjogbGVmdDsgdmVydGlj UElaFVbgY888LSKugBpv Vk4DVE66OX04Z3Pp PjwvdGFibGU+PHRhYmxl IHdpZHRoPScxMDAlJyBz tHxeOQ0aJj8iVVUiNSXz qClfoMHrTjYel5xs JFFdULtnSA9slPqxI4Mi yZH3FJBcp8y6Tc45I93w V5KqrKZ+MZOmoIZ7jOT1 tA1lYqYcKnJ3EEat Y844XjJlgKJxUdmhq0vl g2sryKl1KyRjHSCgfcXk lDiuSTE0r2WwGr04V03y IHdpZHRoPSIyMCUi SYFdhBoemq3rwE5rTo1+ EIRljCC7xAH7yN5dDpBr PlV8LFkbX488VgBjaIOw OrjuL99rD0LpwLP+ RLDjKau7ZBVelSvzXG4w bGSeUEfxAl6hYYR5ByRj YiAoLEpcJ8UdRUAdzqjj lehskPS9NLFyKAJt aC12No0exIkfEv9zIMQa RXG6XHBzxDZsW1XiqY1g MkUoOWIqUCBaX3GezWXy YLknG032YBvrVkM1 IOMhsjJqV8YmJEBjjXnk HaP3w9X8Vv1TcLidiHGu TY3kFpGmXEn5M5ZkYsl7 VQKnkVouCR9jdQEl EOqxCc0ulQasaUpeDE6c DILtwwffw386FrKvj8ke INFjrNDqTRgaGEK4U72p l4G6TQYxUPNpSKF7 tKN6iP8nvUukoxxmfBNg dDsgdmVydGljYWwtYWxp F765PZMcvYviHnQKKrw0 B0UnCfh2SVDwnSbh CT4psDLzKGwcCx1raIej gZosLO2gJFCfweprn770 FdYll0trCEThdBEnVGvy DRF2W78ob9Z4MPAj XUBwVBM8vII9vU8ucVmi bjogbGVmdDsgdmVydGlj QUgoJKkcG187TQZnkZpw Wf3GLuu2O2XxFjy1 WQQcoDxiFU0prMAyQGpb Io4udDgqaOjgDC7bIHOk zspex575BbMkg8zePFJa aYGmZSseGFH5H25j i0O7YREySNIoSNE3sVY8 mS8xxVxzgcsakNHoqUed bsRamJacXUqmXAlwB094 IHRvcDsnPlBheWVy OjwvdGQ+CR35ir76R1Tn RzumCnw9JJZqXSH8nNC7 uQ5nGZTyHHrhn4U5zKA4 S5AxzjYune5zb3ll YXB (more content not included)... Normal [facility] .Auto Diff 04-15-2023 Auto [place] % 8 % Normal 04-19 [facility] Comment on above: Performed By: #### 1 [id number], [id number], [id number], [id number] #### [facility] (DEFAULT) [address] [place] [address] 91627 Baso Abs# 0.1 x10 Normal 0.0-0.2 [facility] Comment on above: Performed By: #### 1 [id number], [id number], 9157470, [id number] #### [facility] (DEFAULT) [address] [place] [address] 01302 Basophils/100 WBC (Bld) 1.0 % Normal 0.2-2.0 [facility] Comment on above: Performed By: #### 1 [id number], 02265002, [id number], [id number] #### [facility] (DEFAULT) [address] [place] [address] 26008 Eos Abs# 0.1 x10 Normal 0.0-0.4 [facility] Comment on above: Performed By: #### 1 [id number], [id number], 3961806, [id number] #### [facility] (DEFAULT) [address] [place] [address] 59887 Eosinophils/100 WBC (Bld) 0.5 % Low 0.9-4.0 [facility] Comment on above: Performed By: #### 1 [id number], 28373351, 2452867, [id number] #### [facility] (DEFAULT) [address] [place] [address] 83634 Lymph Abs# 2.9 x10 Normal 1.3-2.9 [facility] Comment on above: Performed By: #### 1 [id number], 08106453, 3873146, [id number] #### [facility] (DEFAULT) [address] [place] [address] 20157 Lymphocytes/100 WBC (Bld) 30 % Normal 14-48 [facility] Comment on above: Performed By: #### 1 [id number], 14785398, 2787739, [id number] #### [facility] (DEFAULT) [address] [place] [address] 38394 [place] Abs# 0.8 x10 Normal 0.0-0.8 [facility] Comment on above: Performed By: #### 1 [id number], 88315794, 6405205, [id number] #### [facility] (DEFAULT) [address] [place] [address] 02403 Neut Abs# 6.0 x10 Normal 1.5-9.2 [facility] Comment on above: Performed By: #### 1 [id number], 51072331, 6649910, [id number] #### [facility] (DEFAULT) [address] [place] [address] Neutrophils/100 WBC (Bld) 61 % Normal 44-88 [facility] Comment on above: Performed By: #### 1 [id number], 55688997, 4949924, [id number] #### [facility] (DEFAULT) [address] [place] [address] CBC w/ Auto Diffon 4 Erythrocyte distribution width (RBC) [Ratio] 13.4 % Normal 11.5-15.0 [facility] Comment on above: Performed By: #### 7 246156, 43071489, [id number], 9858440864, [id number] ####[facility] (DEFAULT)[address] [place] [address] Hematocrit (Bld) [Volume fraction] 40.7 % High 33.7-40.4 [facility] Comment on above: Performed By: #### 7 [id number], 38503831, 0304843238, 0832934097, [id number] ####[facility] (DEFAULT)[address] [place] [address] Hemoglobin (Bld) [Mass/Vol] 13.7 g/dL Normal 11.3-15.9 [facility] Comment on above: Performed By: #### 7 711414, 61868685, [id number], 1026468813, [id number] ####[facility] (DEFAULT)[address] [place] [address] Man Diff? Auto Invalid Interpretation Code [facility] Comment on above: Performed By: #### 7 812184, 79577785, [id number], [id number], [id number] ####[facility] (DEFAULT)[address] [place] [address] 61248 MCH (RBC) [Entitic mass] 29 pg Normal 24-34 [facility] Comment on above: Performed By: #### 7 [id number], 05885773, 0387964951, [id number], [id number] ####[facility] (DEFAULT)[address] [place] [address] MCHC (RBC) [Mass/Vol] 34 g/dL Normal 26-37 [facility] Comment on above: Performed By: #### 7 486553, 96435978, 1482661896, 5543836484, [id number] ####[facility] (DEFAULT)[address] [place] [address] 32735 MCV (RBC) [Entitic vol] 86 fL Normal 81-100 [facility] Comment on above: Performed By: #### 7 100910, 39536077, 9221242601, 3177635689, [id number] ####[facility] (DEFAULT)[address] [place] [address] 63215 Platelet 430 x10 High 138-427 [facility] Comment on above: Performed By: #### 7 756118, 37845510, 6524348099, 2901162431, [id number] ####[facility] (DEFAULT)[address] [place] [address] 75165 Platelet mean volume (Bld) [Entitic vol] 8.5 fL Normal 6.3-10.2 [facility] Comment on above: Performed By: #### 7 171168, 28733917, 8156598001, 2946763595, [id number] ####[facility] (DEFAULT)[address] [place] [address] 09277 RBC 4.75 x10 Normal 3.70-5.30 [facility] Comment on above: Performed By: #### 7 294326, 95241794, 6342266232, 6348896489, [id number] ####[facility] (DEFAULT)[address] [place] [address] 12703 WBC 9.9 x10 Normal 3.5-10.5 [facility] Comment on above: Performed By: #### 7 890284, 77029401, 3151573664, 5160553312, [id number] ####[facility] (DEFAULT)[address] [place] [address] 44205 CMP Standardon 04-15-2023 eGFR Non AA >60 Invalid Interpretation Code [facility] Comment on above: Performed By: #### 1 [id number], 32146551, 8843692, [id number] #### [facility] (DEFAULT) [address] [place] [address] 66869 eGFR AA >60 Invalid Interpretation Code [facility] Comment on above: Performed By: #### 1 [id number], 82764629, 5139399, [id number] #### [facility] (DEFAULT) [address] [place] [address] 41912 Albumin [Mass/Vol] 4.5 g/dL Normal 3.5-5.0 [facility] Comment on above: Performed By: #### 1 [id number], 72071343, 6999343, 9796074137 #### [facility] (DEFAULT) [address] [place] [address] 12313 Albumin/Globulin [Mass ratio] 1.2 {ratio} Low 1.4-2.6 [facility] Comment on above: Performed By: #### 1 [id number], 62313064, 6359196, [id number] #### [facility] (DEFAULT) [address] [place] [address] 16824 Alk Phos 68 IU/L Normal 32-91 [facility] Comment on above: Performed By: #### 1 [id number], 95817286, 3621959, [id number] #### [facility] (DEFAULT) [address] [place] [address] 81347 ALT [Catalytic activity/Vol] 34.0 U/L Normal 14.0-54.0 [facility] Comment on above: Performed By: #### 1 [id number], 51768653, 0610405, [id number] #### [facility] (DEFAULT) [address] [place] [address] 36798 AST [Catalytic activity/Vol] 27 U/L Normal 15-41 [facility] Comment on above: Performed By: #### 1 [id number], 34180596, 5044957, [id number] #### [facility] (DEFAULT) [address] [place] [address] 62189 Bili Total 0.7 mg/dL Normal 0.3-1.2 [facility] Comment on above: Performed By: #### 1 [id number], 33941114, 6244222, 1389855907 #### [facility] (DEFAULT) [address] [place] [address] 78048 Creatinine [Mass/Vol] 0.77 mg/dL Normal 0.60-1.30 [facility] Comment on above: Performed By: #### 1 [id number], 89235488, 5147931, [id number] #### [facility] (DEFAULT) [address] [place] [address] 58137 Globulin (S) [Mass/Vol] 3.6 g/dL Normal 1.5-4.3 [facility] Comment on above: Performed By: #### 1 [id number], 72600741, 1679963, [id number] #### [facility] (DEFAULT) [address] [place] [address] 24533 Osmolality 269 mOsm/L Invalid Interpretation Code [facility] Comment on above: Performed By: #### 1 [id number], 06661765, 2472527, [id number] #### [facility] (DEFAULT) [address] [place] [address] 58620 Protein [Mass/Vol] 8.1 g/dL Normal 6.5-8.1 [facility] Comment on above: Performed By: #### 1 [id number], 44279964, 8451348, [id number] #### [facility] (DEFAULT) [address] [place] [address] 44680 Urea nitrogen [Mass/Vol] 10 mg/dL Normal 8-26 [facility] Comment on above: Performed By: #### 1 [id number], 68646810, 7260830, [id number] #### [facility] (DEFAULT) [address] [place] [address] 12217 Urea nitrogen/Creatinine [Mass ratio] 12.9 mg/mg Normal 4.6-16.2 [facility] Comment on above: Performed By: #### 1 [id number], 35055454, 2492420, [id number] #### [facility] (DEFAULT) [address] [place] [address] 10331 Calcium [Mass/Vol] 9.0 mg/dL Normal 8.9-10.3 [facility] Comment on above: Performed By: #### 1 [id number], 37790279, 5558906, [id number] #### [facility] (DEFAULT) [address] [place] [address] 37731 Chloride [Moles/Vol] 104 mmol/L Normal 101-111 [facility] Comment on above: Performed By: #### 1 [id number], 21353040, 0924829, [id number] #### [facility] (DEFAULT) [address] [place] [address] 23534 CO2 [Moles/Vol] 23 mmol/L Normal 21-32 [facility] Comment on above: Performed By: #### 1 [id number], 35464135, 6976306, [id number] #### [facility] (DEFAULT) [address] [place] [address] 30789 Glucose [Mass/Vol] 94.0 mg/dL Normal 74.0-118.0 [facility] Comment on above: Performed By: #### 1 [id number], 18576577, 7256510, [id number] #### [facility] (DEFAULT) [address] [place] [address] 02741 Potassium [Moles/Vol] 3.9 mmol/L Normal 3.6-5.1 [facility] Comment on above: Performed By: #### 1 [id number], 82233260, 4630645, [id number] #### [facility] (DEFAULT) [address] [place] [address] 12818 Sodium [Moles/Vol] 135.0 mmol/L Low 136.0-144.0 [facility] Comment on above: Performed By: #### 1 [id number], 28322056, 3641013, [id number] #### [facility] (DEFAULT) [address] [place] [address] 60322 Anion gap [Moles/Vol] 11.9 mmol/L Normal 5.0-19.0 [facility] Comment on above: Performed By: #### 1 [id number], 81592246, 7159607, [id number] #### [facility] (DEFAULT) [address] [place] [id number] ED Clinical Summaryon 2023 ED Clinical Summary [facility] - Emergency Department [address] [place] [address] ED Clinical Summary PERSON INFORMATION Name: LIA DESAI Age: 22 Years Sex: FEMALE : 2000 MRN: Acct#: Visit Reason: Vomiting - ; NAUSEA, VOMITING, 6 WEEKS Arrival: 04/15/2023 14:48:29 Discharge: 04/15/2023 16:38:00 LOS: 000 01:50 Check In: 04/15/2023 14:48:29 Checkout:04/15/2023 16:38:00 Address: [address] [place], [place] [id number] PCP: ROBERT MARRERO PROVIDER INFORMATION Provider Role [...] EDUCATION INFORMATION Instructions: Nausea and Vomiting, Adult, Gkce-qg-Akpi Follow-Up: With: Address: When: ROBERT MARRERO [address] [place] [address] Within 3 to 5 days DIAGNOSIS: 1:Nausea/vomiting in Patient Understands: Yes - Patient/family/careg iver verbalizes understanding of instructions given Comment: Normal [facility] ED Patient Summaryon 024 ED Patient Summary [facility] - Emergency Department [address] [place] [address] PATIENT DISCHARGE INSTRUCTIONS Patient Information Name: LIA DESAI Age: 22 Years Date of : 2000 Reason For Visit: Vomiting - ; NAUSEA, VOMITING, 6 WEEKS Arrival Time: 04/15/2023 14:48:29 Primary Care Physician: ROBERT MARRERO Attending Physician: Yassine Maldonado MD Comment: Visit Diagnosis: Diagnoses This Visit Nausea/vomiting in (O21.9) Vomiting - ([id number]) The Pharmacy at [facility] is open Saturday through Saturday from 9A [...] alcohol and/or drug addiction problems; contact the [facility] 29/10 Crisis Hotline -Text 0LWBC iy 060036. If you received any narcotics, sedation, or [...] With: Address: When: ROBERT MARRERO [address] [place] [address] Within 3 to 5 days Medication Information: The exam and treatment you received today in the [facility] Emergency Department were for an urgent problem and are not intended as complete care. It is important for you to follow up with a doctor, nurse practitioner, or physician?s photographer assistant for ongoing care. If your symptoms [...] so we can reach you if necessary. [facility] Emergency Department has provided you with a complete list of medications post discharge. Please inform your contract admin/provider of your visit and for further instruction [...] other disea (more content not included)... Normal [facility] Extra Greenon 04-15-2023 Tube Collected Yes Invalid Interpretation Code [facility] Comment on above: Performed By: #### 7 [id number] ####[facility] (DEFAULT)[address] [place] [address] ED Clinical Summaryon 2023 ED Clinical Summary [facility] ? Urgent Care [address] [place] [address] Clinical Summary PERSON INFORMATION Name: LIA DESAI Age: 22 Years Sex: FEMALE : 2000 MRN: Acct#: Visit Reason: UC - Nausea; NAUSEA Arrival: 04/12/2023 09:25:14 Discharge: 04/12/2023 09:56:00 LOS: 000 00:31 Check In: 04/12/2023 09:25:14 Checkout: 04/12/2023 09:56:00 Address: [address] [place], [place] [id number] PCP: ROBERT MARRERO PROVIDER INFORMATION Provider Role [...] With: Address: When: ROBERT MARRERO [address] [place] [address] Within 3 to 5 days Comments: Diagnosis is history of nausea vomiting, during . We provided you with medication help with nausea. Keep hydrated. Eat light, over the next 24-48 hours, soups, Jell-O, avoid heavy meals. Follow-up with your own primary care provider, or your [employer] physician in the next 3-5 days, for reevaluation. Return to the emergency room for worsening symptoms or concerns, worsening abdominal pain, worsening nausea or vomiting, spiking fevers, acute shortness of breath or chest pain, or any questions DIAGNOSIS: 1:Nausea and vomiting during Patient Understands: Yes - Patient/family/careg iver verbalizes understanding of instructions given Comment: Normal [facility] ED Patient Summaryon 024 ED Patient Summary [facility] ? Urgent Care [address] [place] [address] PATIENT DISCHARGE INSTRUCTIONS Patient Information Name: LIA DESAI Age: 22 Years Date of : 2000 Reason For Visit: UC - Nausea; NAUSEA Arrival Time: 04/12/2023 09:25:14 Primary Care Physician: ROBERT MARRERO Attending Physician: Oneil Salomon Comment: Patient Education With: Address: When: ROBERT MARRERO [address] [place] [address] Within 3 to 5 days Comments: Diagnosis is history of nausea vomiting, during . We provided you with medication help with nausea. Keep hydrated. Eat light, over the next 24-48 hours, soups, Jell-O, avoid heavy meals. Follow-up with your own primary care provider, or your [employer] physician in the next 3-5 days, for [...] these instructions at home: Medicines ? Take avbw-ihe-qmrgvuc and prescription medicines only as told by your health care provider. Do not use any prescription, nypg-stz-dbbepnj, or herbal medicines for morning sickness without [...] to yo (more content not included)... Normal [facility] [place] 024 Urgent Care Record [facility] ? Urgent Care [address] [place] [address] PATIENT DISCHARGE INSTRUCTIONS Patient Information Name: LIA DESAI Age: 22 Years Date of : 2000 Reason For Visit: UC - Nausea; NAUSEA Arrival Time: 04/12/2023 09:25:14 Primary Care Physician: ROBERT MARRERO Attending Physician: Oneil Salomon Comment: Visit Diagnosis: Diagnoses This Visit Nausea and vomiting during (O21.9) UC - Nausea ([id number]) If you received any narcotics, sedation, or [...] With: Address: When: ROBERT MARRERO [address] [place] [address] Within 3 to 5 days Comments: Diagnosis is history of nausea vomiting, during . We provided you with medication help with nausea. Keep hydrated. Eat light, over the next 24-48 hours, soups, Jell-O, avoid heavy meals. Follow-up with your own primary care provider, or your [employer] physician in the next 3-5 days, for reevaluation. Return to the emergency room for worsening symptoms or concerns, worsening abdominal pain, worsening nausea or vomiting, spiking fevers, acute shortness of breath or chest pain, or any questions Medication Information: The exam and treatment you received today in the [facility] were for an urgent problem and are not intended as complete care. It is important for you to follow up with a doctor, nurse practitioner, or physician?s photographer assistant for ongoing care. If your symptoms [...] so we can reach you if necessary. [facility] has provided you with a complete list of medications post discharge. Please inform your contract admin/provider of your visit and for further instruction on these medications. Any specific questions regarding your chronic medications and dosages should be discussed with your primary care physician(s) and/or pharmacist. New Medications [facility] [address], [place] [id number], [phone] ondansetron (ondansetron 4 mg oral tablet, disintegrating) [...] is not kn (more content not included)... [facility] Coding Summaryon 03-06-2023 Coding Summary HTMLBase 65 KceeunmaLBj0dZg+PGhl YWQ+OP2HHBRsY70ocYWm cW7sV6FYTSaWXgumMBOZ MMvLMcIxgwJfUL0hbSJr ZXJu IC8+FV1vJCDvVzdutWVp j6D5tPN7N93kob1xQGeg iCE4XAYiUxGbgfluh5dd xVz1IHhdLdzuXhKy XRJrlT60VEL6aB87Kq07 yQPojGZbm3cuqMw9IvFi TALeNEN8rVzdJHupy4Py DJUnB85viWVho1B1 IGNvbGxhcHNlOyBlbXB0 sL9xZEywlkdlp6dtmyxk Exc9om12wIRcj7V7rJB7 O6FajeX8DTQkuETn AhqonEUKpD2qipqsf2lb mwpyZaRzUHXwRLf0MRb4 USQnxQbdSkKgDZ80XFG9 MSQbrzKlG7QxQRQz gOpkGhC8l9V3Jg1OJ1RO QgknB1ABAGOEHDoraUL+ VI83de75M7ByYgseSeu2 MHWuSGW9vVY2zU3e TAKkABnqy8A9cNJ9V1Vx okLgfd5cx3ytMHNfCJgq V55qpDNrf6E5VMBdxYS9 EIYxgDeqDfXtgD86 Oyc+UJEiuRenx4WqTdhl u1oic8voeHu1FqewGIYh rxAkcKwlXYE3w7VvTa2y VIDhiGC1iST2lJ0i DvEiAiA4MTkjX918DdKt tAZlKejwU62jC3GuwID+ KFGtVii8RKOtiRqtNN2q K3PgALOgvykrkHEf zBmyZT0sBXYsntdpOORn hP3oUEFpR7z4BdQlVoE6 ZSplQ0CiHPGpyjbjTl08 pK8xFtIjVdR7XPpy T7JucbH5WCMhaYToFDyx BXN3R04ho2P5COUcZSBc OJL5kLZ4tU3vdYyydltm bGVmdDsgdmVydGlj EUbwTWnnU392YVFrlVef PkNvZGluZyBEYXRlOiAg MTEvMjkvMjAyMzwvdGQ+ WHHzGSY3sJauXCAb dZWgUPvrNd6kjEekuJuy CK2dYDDenjqbVCOhlY0u WZLhfMVrjQczUC0iRGGj uokip699NgYqYCG6 UHTorABiY1QiyT1gQdGb ZJBwXCQzC9RbzTRcNMwq A422NOltSwU7LBGxgwAi U1OjOTHlyZtnOjK5 w9X5Fk5Qm8LbcpgmY2Sj fUElJqRmKnshSOg8A2Zq PjwvdHI+UT90XYSpEO71 PMj1ZAV8hYceQJnh JOFqX7MplY4hFmEkZCYs ZGRkOyc+PHRhYmxlIHdp ZHRoPScxMDAlJyBzdHls QA4xGk2mKNEkOIUo eXkcfAMtWqAkj7qsLEAa OWqgFB1vuThgD0QqxAD9 OEUzw5u8Zd24F35jU1Dm dXA+QGBgeXB0zOV4 uU3kSeXvGsI4WRafS685 WfEcfQXsHzgmb0lch4st eHe0CaO6CZFlcsKzkWur LSH8q5OdTn64Q58p IHdpZHRoPSIxNSUiIHZh qOuljv8xmT9dSn3+PGNv nBS8wOM3bD6fSvKnYxC8 TKwrP226NaWmdEUz Ahjzn0aek4ruuKl8NyWb OMJvqoLxqTdpQMB1h2Ao Xk66N4WleCugo4UjTrv0 dy87uEZxp1X6rHY2 G2KtTZByvnaseYBcpEuz EL8tRJIecouzIYFqnF0n BHQtB5y9KaOrYaT5XSed L8NezhB6WDOtoLDe EQDhgAPJfG4pyuvpu8tf llemZhQeETGdEEy8MYc5 KIBszZqlKtHgSDM3SiE8 ACP1pLPmzA4iwMvz vxtafB7pMtz+YHR0zEQt nBTJPX6xSbiirHR+PHRk MGU8hQeoKFmaEXWqyL1c JTGzN1z6FgMbUwD6 XFajH6EerpJ7IIOfzXCv ZPMlfDCUxV6txafxv9hj jootIiLkUHQfTMm9XLm2 LWFsaWduOiBsZWZ0 RfV4QSC2eYWipU8xmNfq ufeatR7sWxj+QmlydGgg MWW2VVc5H0RmQes0CAFx rDnbQO0lmRVqXNml Wt6zgUrzaYmzHS9xMEMk rmhmd591ArObh0fpAKMd zTYvGXpbXEB7M15sd5S0 ZMDuCVDhHTI8vPC1 nJ7gtVvfqdnjrUWyeRzd ndQfrQprFHvtOGaaV680 XKWwuJisYdBnYDi6K6Yq Mnj7EMOptItjMU8r oPYzRQbbWd5stKovvZzb SS4vDMCqinxkm825LaEe n1csVHDgiKOmZFakLIV2 F37dm3W5YYOoJPUv XNO0uSW6vB0lsDodjjru bGVmdDsgdmVydGljYWwt ITvyE491DSUzsKiaDoQf uIu2N3BeTim7TCZv bFhvUA4mdATsQPqcFc9g gGhrtDsoYE8uLDAzxfyj v937OrCvk6xfEULgcEPl CCvpCUS6R21xi8P4 REIkTGQkUHG0wHI3hX1x bGlnbjogbGVmdDsgdmVy qXreFKduEUphK140JQEx cDsnPlBhdGllbnQg GQfiVNa3W4PwDgcozTS+ DB13XBGpHT55eEVaoQAd k4zzxSn1TzHjVBZiRVY0 sKsaLIadd6ZyMGWm L85fwCYsw0U6LQCotIfb pANtDfNnqOF1tZ0uXCke gkhmk0weadksEyree7wz yg21kN75I36qUZwy ZHRoPSIzMCUiIHZhbGln yy2yuE1vOw9+PGNvbCB3 tTP4tO8kPMTfRuI5SHuh P744HdNhwGAvZzib n7hby6jsqJd5WjN3UKOl boCziHghBHW7b9NlDg69 X15pVAwjCYBdPAHbNOHc SMZwkYjisu7eiF4q Ii8+TXHirTP1eMI2iM2b CzMfAdK8XQnoQ058FoGa bDBlUjedH68wP4HmsRK+ ISXgNvk8YMBtoHfq HJ9xhCIxKJxfNv0qGTJ0 IeBgBiEdMMwfZ4NtIMRv ismivhlckVD7CEShUKHq qZ34Gz1xwFybGLYb rBRHhF6dkzbur8cyitri SzKgCOIcUQw3ELi1ELFb tOinSaOlKUN7MuM9CPW1 hFYbfZ3fkTidnffl hM3kV9MxDAGstczpEc18 jH1qDzUuYfD4FUuwTbt+ I6uKUmIUYSajJ5xIEYEF EMoOKR0ETVshvPY+ HZNeZGO0tAqpCHpnLULp wX2vYCAgZ8o7UhYtKzW9 BTyeT5XiKTElytjvWs15 rP9sOrKoWcW4YYun M1HzooC4ANNnpRKwRFvz GKB5O12bs8Z9WNFyMUMn TMP5oUI6pR6tkRbqhmgm bGVmdDsgdmVydGlj ROnxQCxaQ337ZSZttZux CfH9ZrVnPcNyFVU3Z9Ka Kdz2VUWauXguRB8lcVAl VOamJm6flGualHcf DT4aVJYqlcxwIMGbkU3q LAYmoPXlpYchLB8sWGWq lbjri644OjQyUFP5SPDo mRDmF8CofG6qMqPm QABjMWBjV1NtjSYmNYlo O923HQxkEmI9AAQabuWu D5TaGYYcbNacFrU4o0J4 Lh1uOSKNSDWbuhaq dGQ+EVUvQMB5gXsxUTqv LXXwiG0xZEYzA2b8UjPz PyY2NNglE2BmJHHeczue Cj94uS9rIrIzTwI5 MPfvW5SycgB8HXNleFLn ZMjeDHN4Q74kr3G9SECp NTOaJMG3hJV7rH9obIvy bjogbGVmdDsgdmVy kBziNXfoKHtcK098THVe cDsnPkZFTUFMRTwvdGQ+ VQAaRGQ4tUigZZrfZVTc nB1hVTByY7j5GeCu RoC1SQxcG4YdAXTtlvcg Pu50qD9hHnWiSzI7PEij B7OfqjB3JJAbiVJbFLlm OHV0Q64pc9U7OWVx IHZxYRJ3cFU2pT5ndEyb bjogbGVmdDsgdmVydGlj BCdlHPueL167FDUnxIsq FwAyPUMeNP5zqRuk dGQ+NF85fs89T6YrEtet Bsw2HGVnNND6bUL4bN7y OUZaHOgjn6B0kWM0A0Eb jxNnzr7xd6nyYQTv FDwcA92giANrn8J1ZQBf nXB2CVXimScrNpFrkJ74 Oyc+MKTakWurq8BxZrgh q8rgr2tzaYd2BcFs MPHhxzCvhAwfBJS6q1La Gp59V59cQXnkWPAeUZFe XJKhXXQmjCxsgl7uvE4w Ii8+FZLytDD7gPI9 qZ1eWpMoIqK1NFpeV564 CsTygGLgPvqdv5sfd1pv vMd7UbFsHIUjlkDvhOmb TNK4p8WpLe36B4Ar gWqto3DgLde1pl50hLBw m4T3bCA3L5PmZYDnihfp hJJxtWwwHS7wIEIrdhdm OBFqoQ9sRLVxF7a3 GzEbKsO1IIukB8AehlS1 YQNyaLRiZSQztSGYkJ0z uwlml3hfytzuHeFiFBFf BZr8FRc0TALzjPsk JzGrXMD3PgT6UCQ6dUXj eU9wqTyzsoihrT5xWrs+ UYx4r6pcvMDmPQ0crWS2 ON48FX10bNZgc3G6 rSE6N3DoSHLxolvuiekn dWF9QBWyJERtxJ55Dn9g kUquGv8sNHKuOLB8KYLa hFZdO8TljM2cSdHo MASmDNRaD3OsjANgOYbl Q777FBwaCqU1JFQkceMr Y9VjARZkgVnxLyI2w6D6 Bu4QBV31GM15PD34 hQNfi6Y9jIF6H4RoZLNm fennoacwnRU1AYVdEAAg mC06Rf6opFivMm9wBGAl SUU1JYJarOJbS7Xo sJ7hGjHhSLOkTHCbU3Sk vWJkUFlgU265TFgrPgL9 OHDurjXtL7IzEPJeuKdu ZyX4c0Y5Cb4ZIx15 SV21ME61rLEma8B9cRV8 Z0RxECFwirvhibnvhDG1 MTBgRGZboN53Fe2tgFrz Ze2cBHQnQIT7RAGw gACkS0NtuV8wZiThKFEs XSXrM6BgpQQcZQqcW095 FAajAfI7ZHXkvjFnL9Cc GGQhtIowEoU1x6O6 Ip4ZMRmzzpd5X6RvLtdz dHI+CS33LGThZK39nIDu aKBau5ekhNq9CoJgHWRp TAE3hKriMRszj7Vf ZXI (more content not included)... [facility] Coding Summaryon 03-05-2023 Coding Summary HTMLBase 64 AlaonjurNYc6yVo+PGhl YWQ+NM0YZYVbY34viIQp vR8iO8DUULyESqcaQKGO DErUDuEtpyJjYX9zgDUt ZXJu IC8+HI9jXULpZkkseJRk z4Y9aTO6Y55twh5dIMbv pWO6OELvOzTbyxpgu3dp mAd1JMnjMhjjUjIu HXCusM25VTB0dW62Ce01 nHPwoZXrl8hicZu9KsZu IEFaBYU0hGkqJYlno1Tk VEQvZ21yeMEvq9Y9 IGNvbGxhcHNlOyBlbXB0 oB0eWBbhrjwxf0quloeq Qiu4fh01cAMux4F2dJP2 O4XgtrH0RPBqkZFv JqsvfUSWzE1vymzvf3on prfkZtIzOOXpPZm2FCi3 IOOcoRvbXsUkCA87WNH6 TSQcgeDlD4ReDUOw sZhiGwL5d9U3Ld6AF6SE BifkM3MCJPQCRUrgjFK+ NT04fz89Q7LgGyhoPyv5 TNEtEUZ4sUQ4eP2k URMcCAvtl2H6oFP3R4Sb trWrve5mc4yeMRTyLHby M63imCCkk7O7RTFywJN6 KQDoqBuzTbLosZ77 Oyc+XPJgnJklc4UdBxbu f9ijm1wmqUc9DchpEDZs dwOahOtwRAJ9a7SjZd0l KSIqoAN8wKI9jX9x ZeMoCcF9QIyhV416CqQv uOMhFwzgD37sW1TmoKK+ BWZqCbr7EZTvfBuiLG5o N6NdZARyitpugVSa nPnxAX3yHJNeqtveHRMk mX8zVCYuS4x6CnPaLnU4 FLfpW9XtRZQuqbxeXm14 sR8qIqBwZlN7SQjp I1WrmeZ4VMNkwVPiONmm XDZ8S00ng2C1KODcDHGd PHD2lVR8oN6nuNjkchhj bGVmdDsgdmVydGlj KKkrNQxeU491QWUguGwc PkNvZGluZyBEYXRlOiAg MTEvMjgvMjAyMzwvdGQ+ ACBxNRZ9dFahWPOq rFZkQOeiAu6qlKdxnGun ON6hAPZyapmwMOYvbV4d ELVbsAGuiGwyYV4eXUCy ijcnz584AiAjHFS3 VVTvaPHqB8SrtA6fKeNs RFNdYHPbD9BjyWPkDVvf U825KJthGfU1ARMsteRs A5QbEHDbvArwJeZ1 c3B0Fd6On7DpubbfY9Tm pVHdKxQdNczmNZl1V8Sc PjwvdHI+GK86CFXdDP49 RNs7HCW3bPfgQDvc VZHnR1SmjL8nNwPbDDYc ZGRkOyc+PHRhYmxlIHdp ZHRoPScxMDAlJyBzdHls SK7tRp4oKXTjDHAp uSbssZVcRcMwl6rcCTCh QLtiBE2hvYtiO3HzxUM3 NSQjj0g9Rg06H35iS1Ew dXA+AARcrLH6sSD0 uO7cPvBsGfK6HLrdP322 IzJaxUCyCaoqj9vqs3cn oDp4TqQ6BTHtlmPsnUla XOM9o0PsBp63X32i IHdpZHRoPSIxNSUiIHZh mXfgee9ebP0mUy6+PGNv yQQ5uPJ3iF8qViIgKrW3 IEitO863YoQcxCBe Iynjk1tpn7bpgPl7TsOd XFTjnxZzzDzsTSZ9l0Sr Zq00Z4RdvCcat2HgHod9 ww98wGPeg3J8bXJ0 K8QzDYNcjjovgIXcsRjy TI6kHBWgxptoPQHzgS6u SGTgH1x6LkGqPdA2PUpw J5VcghY2VFOppSYc JVHwxXCXaV4btgwsk4gk gmstQcJvADScTOw5YVx1 MTMhsMneRcZkIHE7HbO8 LDP5bPFemI5brNiw cdrrpF9pEhx+HUA5kLKy sQUUTD9vGqjquHJ+PHRk BZC4sOyzGDsaMNEqlW9n HGAuF6e1HaFcMvV5 QOrtP7WevkR1BHKlpZLl WSXvmMMQoH7nqqkur5el wugrHqObJXAgBWf2EOn4 LWFsaWduOiBsZWZ0 RuQ0YHN3pEPeoW6ogWyp phizzQ8bRuj+QmlydGgg FUB8YMb7J8BcJhq8QXMi lVvqKQ2igIQsSYhd Ig5duJtboHxwQX5iRXNa nqlxe143QuVze9fuKBDb kAIjBMefRAX9B25ji0Y2 UOLaKBDdAVT4bEV5 nR5mlMmzyxnldBJkbNai mbIoiAdoWVnuCUwkU185 ZKOcqForOvMxWFb4D4Un Hnk7CULieWwdPN0j oQPfTTuqEf3bqUmmjIhv WX1pPJTnvurqz270MgEx h1onOHXprGIjTWbzCJP3 S75ek5O7ONHuNVYd HQK3hRS3dT3kjCjjzlct bGVmdDsgdmVydGljYWwt QOiiF173OGSibAntZrZd xDa0V8CyUts5HJEp dKoaEC6bwAQgLQwoIi1w vAsryEchEA5rSKYemjff y365RbEfa8nlPNWagUFb ENccHTH1T09ie6W8 GAGxNGHhTBA5hSV6gY5g bGlnbjogbGVmdDsgdmVy yWlcXBueEIazN154TMNo cDsnPlBhdGllbnQg GZgkFOp9T5AsQdbxvRV+ MZ94XDNtQN86kAFhzQNf f0layNl0EcDoBCBgSOK7 rVqyFTjig8FaTQQn I53hpHJun9G4QLZnsAnn lLVlAlVmjLL1lM5gSCfc jarjn1ptvbnlPmvyp9it ln65zI21L98rFCgn ZHRoPSIzMCUiIHZhbGln jq1vhU8uUx7+PGNvbCB3 sJE2fK2dFHKzEmJ1DJtf T285IkOpsDDaMsux r2awq9ffyOx8VjX7XEYj ylSuvQvnHAS4i5PaDc46 O32dKZhiMJEkDTHhXXXh HUZjjWiksw1ieZ0t Ii8+CBMvjFG2fEI6rS5m AiMdIvZ9OQfiU354RbPy cZHuGzylR07mX9MyiJL+ RRVnOfz8ILGawWbv IR6kiSFhWIjqZb8gJXL6 DwDxZeVlLOsiN4RhNWLk tigvjgxehXQ4ELKhCSOl lP56Zn2hfLkpBFBs cGUBvL9fpfcso9slgjkw HySfSNTjNQw0LMl9VPXh jZglWrYjKFV2EoM6KAM7 qTNdvB3wmDpnfasi dG5nT8IpNQBjlzdqZd11 qP8pKzTkStA0XCngWjl+ W6rJSwKKHAzeH5wSOIYB DXxOSR4BGCavnKE+ XZOuPSM0jEcbSZnoQEVm hC5aICBrZ1v2AdGuHkK1 OCtyA6ObLQJrwkgtEn33 xZ4nAmXuIuP1JZag X3TwvkL3SOKsaZOgAWqe CDJ6V24sr7H1ZWXjGFNx NSM4nBJ5hP9mtFkfdpgw bGVmdDsgdmVydGlj IDnfWEkeZ476ZUNowEab QhC6EkIgZvOyOKL6B3Mb Glu6APQmkEuiPD2fmYNb LStnWg5aeWoryLbl LX0dBABfhueaFFRtyA1y RCXksWDvsBjjWJ5xGIXt jgfdg523FgFrLGP9OLRx pXQiQ4AwwV5qQqSq LVCpQYKwP3AnyLXoPXad B851XRvaAuV6WZXuhsSf S6BhTIHtyMoeDiW9e3K8 Cc0rYEPOQHUjmdkz dGQ+USEjKHD2pUbgHAcr TZIsxN4zYIHlV9d3CeHw SlP9LEcvU2WwHHBiurdg Vy88xM9wQpBeWxP6 IKleA3MdlyV5OWMhhKGo DHsiJND5W55zn6L1IJUh QBUxHEG8dKK3vG9hkXdd bjogbGVmdDsgdmVy tEkyEWnxMFktI500DGKz cDsnPkZFTUFMRTwvdGQ+ VPNvIXI7cZijNKbuLCPz sQ0bNCPtV8s7YnEx NiK6ZVwwM4PeUHAlartj Vn96fK6xMlJnCjX3CQet L7PbpkT8NYIioIKdGBil BLY1O91ab1V1BQHt YFXzGDX2vMR7vH4qtNhk bjogbGVmdDsgdmVydGlj LIyfMDvbK715IHJfqCgs Wc5KRI59CH93F5Vd PjwvdGFibGU+PHRhYmxl IHdpZHRoPScxMDAlJyBz vHwaAM4fAy2lDOWvNZEl gMwbdSNgFgNdi2fi ZWQdRGorII9hiXwvK1Cj iYQ1OGUit2w0Oq28B28c U0PrsWR+VRZaxGX8kCN9 gK3cZhToJmG5GNkm D477FzDulNAySlsqu6dh u7usnEa6FpDoDZGuzsUm qEanLSY8n8TqHh37K04x IHdpZHRoPSIyMCUi WRHclLanfl6gnX5lLh6+ EFGoxXK9gCU8hO0yUhXq KiT4TOnnH344HzYxyZBb IlroT07uT4OpiIR+ UMKlNhj0IAJxlFtfBI7y lTQhDAjrHi3rUVN5XdFz VjTxSWyxN8HyOJApwwsz twssiEB5AUXrBLVf nA68Hv2fuYshYu1qMNGd KTT2TVCqwEOkS9CutU1y SmDrOAThXGTnW6NwkUGf UYmjF713GXwfZzG6 YNMtsnTlV1SgIMIerDiw GwS5u4A4Fm6GyPjbeRBl GB2mItQpDUf0Q4XyNsz4 UBKrlZedLZ8rzTKc WDcyFp7vxZbsqGlkCY0w RKDjdudnb742QeZnl1zh WBFxjOYbAVxmQCS1P30f m5M4IHVtVYNbLQZ7 xPW1yI0kfHmouugyrUKc dDsgdmVydGljYWwtYWxp Y807FJSzpDxuGzRPNwz8 N9QlMek4EAZzrHhs QY7roHWvOZhkLb3gjJrc hUnqPS9rKSVmisdgs172 QaDrw7nvCCSgmMUhYRkh KXG7G64cq9K6WKOw KPYpHRR9eOX8kI5fqGrd bjogbGVmdDsgdmVydGlj ZFajJXlyK390LIQluCro Zk7VChh6J6JdDzg9 VTBblBvsYT5glCPfHCym Vj0zcErhnZdkZS1yYZNw rpgau418KnEnl5lyTNGo qNElYHfxBAE7V96q e0T1ITJoTKRuZAX0eHA7 iC4tsUplhbyvrEJlfPoq bmRpbNltTJtqRXgbZ111 IHRvcDsnPlBheWVy OjwvdGQ+WI42vq93V9Fz NuraArs3XRYbADH3bHM3 jT3pQIGlBHyxb0X7xBC9 C4VxyrIyco3kq0kn YXB (more content not included)... [facility] C Throaton 03-03-2023 C Throat Ordered by Discern. Normal throat jonny isolated No pathogens isolated [facility] Comment on above: Performed By: #### 6 [id number] ####[facility] (DEFAULT)[address] [place] [address] .QC SARS-CoV-2 (COVID-19)/Fl u/RSV (GeneXpert)on 03-01-2023 Internal Control Pass [facility] Comment on above: Order Comment: Order ed by Radha. [[email or web address]_QC] Performed By: #### 6 [id number] #### [facility] (DEFAULT) [address] [place] [address] COVID/Flu/RSV (GeneXpert)on 03-01-2023 Flu A (GXpert COVFLURSV) Negative Normal [facility] Comment on above: Performed By: #### 6 [id number] #### [facility] (DEFAULT) [address] [place] [address] Flu B (GXpert COVFLURSV) Negative Normal [facility] Comment on above: Performed By: #### 6 [id number] #### [facility] (DEFAULT) [address] [place] [address] RSV (GXpert COVFLURSV) Negative Normal [facility] Comment on above: Performed By: #### 6 [id number], [id number] #### [facility] (DEFAULT) [address] [place] [address] SARS-CoV-2 (COVID-19) RNA MILY+probe Ql (Unsp spec) Negative Normal Negative [facility] Comment on above: Result Comment: Perf ormed by PCR methodology. Performed By: #### 6 [id number] #### [facility] (DEFAULT) [address] [place] [address] ED Clinical Summaryon 2022 ED Clinical Summary [facility] - Emergency Department [address] [place] [address] ED Clinical Summary PERSON INFORMATION Name: LIA DESAI Age: 22 Years Sex: FEMALE : 2000 MRN: Acct#: Visit Reason: Cough; Throat pain; COUGH, SORE THROAT Arrival: 03/01/2023 14:12:36 Discharge: 03/01/2023 16:04:00 LOS: 000 01:52 Check In: 03/01/2023 14:12:36 Checkout:03/01/2023 16:04:00 Address: [address] [place] [address] PCP: Provider, Unlisted PROVIDER INFORMATION Provider Role [...] verbalizes understanding of instructions given Comment: Normal [facility] ED Note - Physicianon 2022 ED [...] Resolved Disease caused by 2019 novel coronavirus ([id number]): Onset on 11/23/2020 at 20 years. Resolved. Comments: 11/23/2020 CDT 16:07 CDT - SYSTEM Problem added by Rule (IC_COVID19_AUTO_PRO BLEM) following 2019 Novel Coronavirus (CoVID-19), MILY L from Nasopharyngeal Swab collected on 22-NOV-2020 16:44:00 EDT tested positive for COVID-19. no history ([id number]): Resolved. Contact dermatitis (00179113): Resolved. Pharyngitis (4677126512): Resolved. Cough (63321858): Resolved.. Surgical history: Tonsillectomy and adenoidectomy (485116032).. Family history: No family history items have [...] any worsenin (more content not included)... Normal [facility] ED Patient Summaryon 023 ED Patient Summary [facility] - Emergency Department [address] [id number] PATIENT DISCHARGE INSTRUCTIONS Patient Information Name: LIA DESAI Age: 22 Years Date of : 2000 Reason For Visit: Cough; Throat pain; COUGH, SORE THROAT Arrival Time: 03/01/2023 14:12:36 Primary Care Physician: Provider, Unlisted Attending Physician: Tom Smith DO Comment: Visit Diagnosis: Diagnoses This Visit Asthmatic bronchitis (J45.909) Cough ([id number]) Throat pain (060045677) The Pharmacy at [facility] is open Saturday through Saturday from 9A [...] alcohol and/or drug addiction problems; contact the [facility] 29/10 Crisis Hotline -Text 4HOPE to 496092. If you received any narcotics, sedation, or [...] and treatment you received today in the [facility] Emergency Department were for an urgent problem and are not intended as complete care. It is important for you to follow up with a doctor, nurse practitioner, or physician?s photographer assistant for ongoing care. If your symptoms [...] so we can reach you if necessary. [facility] Emergency Department has provided you with a complete list of medications post discharge. Please inform your contract admin/provider of your visit and for further instruction on these medications. Any specific questions regarding your chronic medications and dosages should be discussed with your primary care physician(s) and/or pharmacist. New Medications [facility] [id number], [place] [id number], [phone] albuterol (Albuterol (Eqv-ProAir HFA) 90 mcg/inh inhalation [...] Acute bronch (more content not included)... Normal [facility] Strep Aon 03-01-2023 Strep procedure control Pass [facility] Comment on above: Performed By: #### 6 [id number] #### [facility] (DEFAULT) [address] [place] [address] Streptococcus A Negative Normal Negative [facility] Comment on above: Performed By: #### 6 [id number], [id number] #### [facility] (DEFAULT) [address] [place] [address] C Throaton 02-28-2023 C Throat Ordered by Discern. Normal throat jonny isolated No pathogens isolated [facility] Comment on above: Performed By: #### 6 [id number] ####[facility] (DEFAULT)[address] [place] [address] ED Clinical Summaryon 11-21- 2023 ED Clinical Summary [facility] ? Urgent Care [address] [place] [address] Clinical Summary PERSON INFORMATION Name: LIA DESAI Age: 22 Years Sex: FEMALE : 2000 MRN: Acct#: Visit Reason: UC - Sore Throat; SORE THROAT, CONGESTION, BODY ACHES Arrival: 02/26/2023 09:55:01 Discharge: 02/26/2023 11:28:00 LOS: 000 01:33 Check In: 02/26/2023 09:55:01 Checkout: 02/26/2023 11:28:00 Address: [address] [place] [id number] PCP: PROVIDER INFORMATION Provider Role Assigned Unassigned Errol Ortega ED PA 02/26/2023 09:58:25 Birdie James MATERIAL CONTROL SUPERVISOR Nurse 02/26/2023 10:17:32 VITALS INFORMATION Vital Sign [...] verbalizes understanding of instructions given Comment: Normal [facility] ED Patient Summaryon 023 ED Patient Summary [facility] ? Urgent Care [address] [place] [address] PATIENT DISCHARGE INSTRUCTIONS Patient Information Name: LIA [...] to help relieve symptoms, such as: ? Asmz-inq-smsmypc cold medicines. ? Cough suppressants. Coughing is [...] other clear broths. General instructions ? Take ktyd-pwl-gzmghnh and prescription medicines only as told by [...] infection to other (more content not included)... [facility] POCT Rapid CoV-2 (COVID-19) Antigen/ Flu A&Bon 02-26-2023 Influenza A POCT Negative [facility] Comment on above: Performed By: #### 5 [id number] ####[facility] (DEFAULT)[address] [place] [address] Influenza B POCT Negative [facility] Comment on above: Performed By: #### 0 [id number] ####[facility] (DEFAULT)[address] [place] [address] SARS-CoV-2 (COVID-19) RNA MILY+probe Ql (Unsp spec) Not detected [facility] Comment on above: Performed By: #### 6 [id number] ####[facility] (DEFAULT)[address] [place] [address] Strep Aon 02-26-2023 Strep procedure control Pass [facility] Comment on above: Performed By: #### 6 [id number] ####[facility] (DEFAULT)[address] [place] [address] Streptococcus A Negative [facility] Comment on above: Performed By: #### 6 [id number] ####[facility] (DEFAULT)[address] [place] [address] Urgent Care Note- Provideron 02-26-2023 Urgent Care [...] Resolved Disease caused by 2019 novel coronavirus ([id number]): Onset on 11/23/2020 at 20 years. Resolved. Comments: 11/23/2020 CDT 16:07 CDT - SYSTEM Problem added by Rule (IC_COVID19_AUTO_PRO BLEM) following 2019 Novel Coronavirus (CoVID-19), MILY L from Nasopharyngeal Swab collected on 22-NOV-2020 16:44:00 EDT tested positive for COVID-19. no history (094485746): Resolved. Contact dermatitis (21169838): Resolved. Pharyngitis (0271413750): Resolved. Cough (10314511): Resolved.. Surgical history: Tonsillectomy and adenoidectomy (216078602).. Family history: No family history items have [...] collect, Neha (more content not included)... Normal [facility] [place] 023 Urgent Care Record [facility] ? Urgent Care [address] [place] [address] PATIENT DISCHARGE INSTRUCTIONS Patient Information Name: LIA DESAI Age: 22 Years Date of : 2000 Reason For Visit: UC - Sore Throat; SORE THROAT, CONGESTION, BODY ACHES Arrival Time: 02/26/2023 09:55:01 Primary Care Physician: Attending Physician: Errol Ortega Comment: Visit Diagnosis: Diagnoses This Visit Myalgia (M79.10) Other viral agents as the cause of diseases classified elsewhere (B97.89) UC - Sore Throat ([id number]) Viral sore throat (J02.8) Viral upper respiratory [...] and treatment you received today in the [facility] were for an urgent problem and are not intended as complete care. It is important for you to follow up with a doctor, nurse practitioner, or physician?s photographer assistant for ongoing care. If your symptoms [...] so we can reach you if necessary. [facility] has provided you with a complete list of medications post discharge. Please inform your contract admin/provider of your visit and for further instruction on these medications. Any specific questions regarding your chronic medications and dosages should be discussed with your primary care physician(s) and/or pharmacist. New Medications [facility] [address], [address], [place] [id number], [phone] dextromethorphan/gua ifenesin/pseudoephed rine (Capmist DM 15 mg-400 [...] their own, without (more content not included)... [facility] Coding Summaryon 02-22-2023 Coding Summary HTMLBase 64 BejzlyovJVc8kVr+PGhl YWQ+TF0CYTBbN12weOSa mP2yB5GOJRwJPcwtBOKX QZoFUdMtnbTwNO1tkGGi ZXJu IC8+CT9tMDCfViiekTKt h4K6gPV1D81qcp3jSYvu tAR2XUBzTlUtwdnfi6xe uYw1KLyeMlxhNmRe FSGjdZ51NAD9eM49Ha50 mWSinCBmz7qkrDi6GhHu RWDhEIP8fOjxGSrzb9Lg JOCaF51uiRHua8Z2 IGNvbGxhcHNlOyBlbXB0 wI2eHVwfrdqva7tutlrh Wlg8mo48xLIvf4J3cLV8 T5PemzB2OYDxqXDo NbxwhUXJjH9jrbvnn8pp qvarMxEtERZgOEx7DEd0 YPIohJhkXxJlTY12VBU3 PNLemxArL7KkHKRf dWlgPhW3q1K6Vy1DI7AR PfnjL7QLGSWEDOxypAK+ NQ36cv63V5HhTkqzPnq3 QJNaJXZ5rOI1tP3p UFHdJHknn4C5tZD3J0Sm eqQoqc0tf1xoWTTaGQph V35dyKNtq8G0RWHrdUM3 EUVggGrrKkTnoR21 Oyc+SIEelYasc0WwMbop l6ijx9fauIm3PmzmXIDr maPpbRjnBYV5p6UdSg4d MPBztOG3lWH7yO5e EcAbOpU3LEjvQ683UxPu rPMaNbgtS59cY8SbkZR+ CAUrXml0PDEsdMqqSR1j X6AhZMTefldwgIUf yXarDH9iLERrrxqyLZGo yF8sLXYtC9p3PaAsOqU6 MNfyU1YlFMSbxwcuKn44 wR8rOdKiVgD8WZao Z2FyhzP8IEMygHInDBbf NOL7N54jq9I3JJJbFAIt KVW4lCJ7qZ5duWgsdgwg bGVmdDsgdmVydGlj LKouOLdfC312MHXaiDpr PkNvZGluZyBEYXRlOiAg MTEvMTcvMjAyMzwvdGQ+ SSSbVQZ4uSowDQCp qPKtKLewFp5ajRptxWrh LS0yFBSaskjjJRWxeK6j BHDchJZypVjpYD0iVJEk gjnxl985ZuKxIQW8 RYOhlPTzX3FrwS3gCgTr KEDgLCCyJ8IsuMKoVMkz H190TUwsRnD5GNRotwMa D2UeMSUhdYksHxB5 u0R4Lr5Eg1IflmbaF3Ub wWAjEzYxLekvYGj5Y6Qz PjwvdHI+XS57AAQtJU92 BLj1YQT0wPbfJVnv FYPjL3NunK9nGxVzVDTh ZGRkOyc+PHRhYmxlIHdp ZHRoPScxMDAlJyBzdHls KG6lKf0cHKSbHJSx iZcxkFToHbKmp6xeMUNp XEkdRA6jgAgeB7OurTA3 MBXay3a7Gj55P30rK6Jz dXA+RGIudJQ3bDU2 xO3uIuEaKsV9STdrL708 NqQreSPxLpooj8kzs7eq hHw5KaM7WYQidzUnjEhm XPM7y6JgLu64V17e IHdpZHRoPSIxNSUiIHZh kXkpwj9ggI1rZv4+PGNv kBS1oGT1yJ8oRrAlCiT3 WVozJ150KkKzeFAd Thoxo8lwh4qyaVi8VbDl EGKbxdOeyCkvMQC0f7Bu Hr07X2FdaSmzk6InIuk1 qo55nETby9L0tHC2 U8ReTJLezhotuSKbwVhh NU8fJJTkyvvgHXQizW1c DXYfJ5l7EiPaRrF7WKgl S5YlcmZ0YVFvrKHf DDVjzFGPdT5qncjnb2tg knyjZbIqKJXlDYv3SZt0 WLWbiVqbRuWfKUR0TrM2 TQR4eZYryU9saLbo lsgvvK1pHgo+JPS4tXQj gMZMQD6wRduhgTB+PHRk ITO9nDvaTLwdSXHddE6r VBIfJ8b5WfAeHkL0 OPfwD7WvepH4OGIxkCPa TKJfhOWTkN2gcroha4kb zjjwGkJjEGFaUFx0MZl9 LWFsaWduOiBsZWZ0 RyL5VKM2eCBfrZ5suThn ykcglF9wHcl+QmlydGgg TIS7JUi3Z2UxBey2JWZj eAzsZV1ltSWqWNir Ct3foHlitPgpAD3oNBLb wfsgx767PiDpm6bxYXCu kLBiXNamNUH2E40xh9S4 DAEdTYVgAQE9eSR8 vC3psMwuizrlnCSgfKmu hfFptByqWNypDFdzC501 YYZilSwoNhIjYIy7C9Wm Bjd6WMUngBegAV9t wVNeWSiwWi4qhFhukGeb CD3tFQLlmtyel882OrUb c9kyNFBlbCZrRVfjBMU4 Q44yf0T8SFOnMPUt EJM9xOX8eS0ihEmqzotv bGVmdDsgdmVydGljYWwt YZhpA470UOPgkXmsSiRg tUd4F2WfWet9RKWj lJfrBM6hjTAmMEreMd5u iBveaBzzTR2oNQWpbktv b085SgCui7woDONvlWEh JCwhJYI6K65dv2O0 KVVoNKSpEWL8lXZ1yZ3k bGlnbjogbGVmdDsgdmVy nUchMZqeZZvyR173NVYb cDsnPlBhdGllbnQg BVsiQRw8K6LxBwyipIK+ PV36RDUiPW90vVKebFEy k8nccQk7FvWeFAFgYLQ9 oJzcBLfmv8FlQUPu J38mxKYeo7I1VWSeaNyj rIKsKtRxkUZ7lG4aFZpb vgfkm7kwriiiKxzhb1ei px35wS75J48iVMmu ZHRoPSIzMCUiIHZhbGln xt3ptP4vLs2+PGNvbCB3 mIS5wJ6pMLTaCgP4YKbg L755JcYlvHBdLwse d9kvm9pfdWj7KyR6KTZy flZqpBbtXMN4c0RcVu71 Q15fOMrjQQJzROCxTRLf AEZfxAmtqv5urI7y Ii8+PSVqzOH2hRM4nQ1h IwNeSkL5HZtxU052PeGy aRHqNhkiK54kW7PocNN+ GIOrXss1UMZoqFex BC1wqKYqAJtsQb5xQKU1 DgLzAoFrMQgeC6JfGVIt urygrjqjjLP0WNLuNRPs rA98Co4jxAfwHTGp yLIFeQ7kmsqdo6hxyqov MuPbNVVuWSo5UJc8ZGJt qCacZdMiJLF4SyO7WTN4 qCJyfE0jlIubpqfe sB8eJ6YpPTYmnddmKl92 yV5xNyKbBxY6ESwxEvl+ T5aZYvJCBGgpN3nSQIJO INfZRF0DAHrbqSV+ ZLHdDKV8vRqmHAyqFBPf jT6pRGGlM8i3LpXyFfV8 UKvjU2GsUNJikcbsIq50 fV2yQePxCxF3LNxy P9WepoF8UCUazQUsDRse KOL1O24bo9U8KCApRATv BLI5wOP0iH6sxJlhjnik bGVmdDsgdmVydGlj PSedFUryM894RURvrUkm ByI5DcIvPvGpOCP8K0Rt Ymw4ANWetTvcNG9cxINo YXtaFj0roQqvfWmb WD1wDCYjsqsqNODfwN8y KQRviGMupDupYR3rFISj milcj065PdMoUNN0ZXMv dIKrT0MiuY6dZuSz UPWbWNDbE9ZhsIEcGWae Q006XYatLuS8BJHwhyTx V4YbWUQydJwpBoK2v0E5 Yu3gBYGSIZElfiyq dGQ+TDUqQCR3zOcjYKmh PPJtgM2vUETeE1z7YySs BzN6MJjpM4AhYIXyhrvr Qt40aF8mOvMiCaP0 TMxkH0SkumH7ZVSwgWTg GBppSQY1B10mb3A3VCFd VKPdOGP1hIK5qO7raUlh bjogbGVmdDsgdmVy vFanQHdbLRcqP593VCNp cDsnPkZFTUFMRTwvdGQ+ NVJtZAV5qEdtDEoiHRUc sF4mJMXbR2f2TbMv IdF5YZxtB9NnTQEuazeg Hh53lT8uShGfTfV0CPsv M7BaigA8UUQbpRZlPSrh NFL4D52od2C6BPTq SLKzJFK2tFS9rO7rpLhb bjogbGVmdDsgdmVydGlj DOjvGMgvB111HMWbwJqr Dl5BQY87OS11H5Vx PjwvdGFibGU+PHRhYmxl IHdpZHRoPScxMDAlJyBz yJakWQ6eAp2iAXEoNHMn eWzhbHLcHmYbl3oz IEAxPMpbPS4alIstM3Sq oBE1XVEcu9u2Fu25Q50d D3MqyPL+TKEzsKJ5dGF2 yR2sIjEsOhR4LYlg A699FhHuiJNrNccig7uz m1qjcKl7AvJxAYIhoqIw uDriWEI4k3TfVi96H62f IHdpZHRoPSIyMCUi ZPJggVvlpm4poB0eBq7+ SXKpkUX2oQC6xG8pJqUy ZuO8NZhzV808NhHxtISc GdxlH58nL3EzwGG+ BLKeRfu3WCDzgTysSW2h rZIfQXlqHa7nSPA5RoXv PoYzYKayZ8IiBKEcbjze glwfyIE6URUySUFe hR95Aa6reXsjLj1xIRJt LOH4RYOicCUgQ1HotJ3h OiRrNDZmCVVeR1UnuRQr OQywW213IRrdEiA3 VKZdqoGuS8CdSGUciLbk PjY2q9F8Yr3HbEbipUAk GZ3oXrTfBFi0Q2AsSpc0 PCLdkOfrAP5opUSj FJydBd0ggZwutGxkYS6g TJGxmwxqr216FvWji3jk VFJioBWmOCbkNCN8U26b y5L1LSZdSLTeYFL6 cLY4tM2qgUcmtlgtrJYm dDsgdmVydGljYWwtYWxp A753PHHmkAerDuYKZub2 J8MrYtt2APEvqXyk CB3amTGtCQlzYs9mdBtw oGpzBB7qTYEwfouan459 ZeFlh5tfTORsnLGmTLfz UOV8O13pr0R3OOFi CCTrNTS3xLI4yH1prZio bjogbGVmdDsgdmVydGlj XKpqCIpqM884ZXXrtIbk Ow1VPts3N4PbKwj0 AUKqfUuaXG0etNYiCUzp Ug6pkEgxeAboKS7fBMXn jhass114DkLfk6ykMBQb sJAyNQbyZNB9C37k j9L6DICcMFHsWGP8pSS1 hM7dwEionkzwcWOfbWjy kmTdpAyfXLkcYXzlX480 IHRvcDsnPlBheWVy OjwvdGQ+WY93gr83L2Fp IpniLue9FSDeZMR6qKN2 kS0tZGRcMEwhr9I6eII8 A1JtqnWvxy0cw7gg YXB (more content not included)... [facility] ED Clinical Summaryon 2022 ED Clinical Summary [facility] ? Urgent Care [address] [place] [address] [id number] Clinical Summary PERSON INFORMATION Name: LIA DESAI Age: 22 Years Sex: FEMALE : 2000 MRN: Acct#: Visit Reason: UC - Wrist/Hand/Finger Pain or Swelling; LT HAND INJURY Arrival: 02/14/2023 17:07:31 Discharge: 02/14/2023 18:05:00 LOS: 000 00:58 Check In: 02/14/2023 17:07:31 Checkout: 02/14/2023 18:05:00 Address: [address] [place] [id number] PCP: PROVIDER INFORMATION Provider Role Assigned Unassigned [...] Therapy Follow-Up: With: Address: When: Regla Hernandez [phone] EXT: [phone] Call for family Physician Within 3 to 5 days Comments: Call for help finding primary care provider. Follow-up for reevaluation. Continue with rest ice and elevation using ice 10 minutes out of every hour as needed. Return for any worsening issues or any other problems. With: Address: When: [facility] Comments: [phone] DIAGNOSIS: Contusion of left hand; Left hand pain Patient Understands: Yes - Patient/family/malissa talberter verbalizes understanding of instructions given Comment: [facility] ED Patient Summaryon 023 ED Patient Summary [facility] ? Urgent Care [address] [place] [id number] PATIENT DISCHARGE INSTRUCTIONS Patient Information Name: LIA DESAI Age: 22 Years Date of : 2000 [facility]: [id number] Reason For Visit: UC - Wrist/Hand/Finger Pain or Swelling; LT HAND INJURY Arrival Time: 02/14/2023 17:07:31 Primary Care Physician: Attending Physician: DORA JASSO Comment: Patient Education With: Address: Spencer: Regla Hernandez [phone] EXT: [phone] Call for family Physician Within 3 to 5 days Comments: Call for help finding primary care provider. Follow-up for reevaluation. Continue with rest ice and elevation using ice 10 minutes out of every hour as needed. Return for any worsening issues or any other problems. With: Address: When: [facility] Comments: [phone] Hand Contusion A hand contusion is a [...] elastic wrap to support your hand. ? Egiv-kmw-dildrle medicines to control pain. Follow these instructions [...] or lying down. General instructions ? Take oyus-euq-mzgjflq and prescription medicines only as told by [...] provider. Document Revised: 07/13/2021 Document Reviewed: 07/13/2021 [employer] Patient Education ? 2022 [employer] How to Use Cold Therapy Cold [...] the area (more content not included)... Normal [facility] Urgent Care Note- Provideron 02-14-2023 Urgent [...] All Problems (Selected) Anxiety / SNOMED CT 52589875 / Confirmed Acute depression / SNOMED CT 6119363914 / Confirmed Chronic post-traumatic stress disorder (PTSD) / SNOMED CT 649212260 / Confirmed Pharyngitis / SNOMED CT 8047509786 / Confirmed Cough / SNOMED CT 02820978 / Confirmed Objective CONST: -Well-developed well-nourished. -Acute distress: No -Vitals: reviewed. SKIN: -Gross abnormalities: No NECK: -Supple (qecd-jq-kkijj): non-tender. CARD: -Rate and rhythm: Regular RESP: [...] and Plan: Diagnosis: Contusion of left hand (MEX11-HL S60.222A), Left hand pain (USU47-ED M79.642). Orders Orders Patient Care: Brace/Splint ED [...] [Verified on: 02/14/2023 18:01 EST] DORA JASSO [facility] Urgent Care Recordon 023 Urgent Care Record [facility] ? Urgent Care [address] [place] [address] PATIENT DISCHARGE INSTRUCTIONS Patient Information Name: LIA DESAI Age: 22 Years Date of : 2000 Reason For Visit: UC - Wrist/Hand/Finger Pain or Swelling; LT HAND INJURY Arrival Time: 02/14/2023 17:07:31 Primary Care Physician: Attending Physician: DORA JASSO Comment: Visit Diagnosis: Diagnoses This Visit Contusion of left hand (S60.222A) Left hand pain (M79.642) UC - Wrist/Hand/Finger Pain or Swelling ([id number]) If you received any narcotics, sedation, or [...] legal documents With: Address: When: Regla Hernandez [phone] EXT: [phone] Call for family Physician Within 3 to 5 days Comments: Call for help finding primary care provider. Follow-up for reevaluation. Continue with rest ice and elevation using ice 10 minutes out of every hour as needed. Return for any worsening issues or any other problems. With: Address: When: [facility] Comments: [phone] Medication Information: The exam and treatment you received today in the [facility] were for an urgent problem and are not intended as complete care. It is important for you to follow up with a doctor, nurse practitioner, or physician?s photographer assistant for ongoing care. If your symptoms [...] so we can reach you if necessary. [facility] has provided you with a complete list of medications post discharge. Please inform your contract admin/provider of your visit and for further instruction [...] This is (more content not included)... Normal [facility] XR Hand Complete Lefton 11-0 XR Hand Complete Left CLINICAL HISTORY: Left hand pain. Punched wall. TECHNIQUE: 3 views left hand. COMPARISON: 12/15/2019 RESULT: No evidence for acute fracture. No dislocation. Joint spaces appear maintained. Soft tissues unremarkable. IMPRESSION: No acute findings. Final Signed (Electronic Signature): Gavin Mahoney MD 02/14/23 5:54 pm Technologist: KELVIN PATEL [facility] Coding Summaryon 11-27-2022 Coding Summary HTMLBase 64 BdfqyduxCYj3dIy+PGhl YWQ+GZ3HPLBnZ78ruIYl zC4aP9KDAIdZQpyuOWMI HNjZTcFfurXeQO2dxLLm ZXJu IC8+KJ8aIKXyYlbuzJWg b1Y0mNR2Z57wzz0mUElk yXQ7YPKxIpUfngizu1km tEr0BZqcDimhDmUd SAPmeY28KKL5xF87Nh60 jHWblVHnw9zcwAl3CeQe GNBqJUC1mWdwWJvlt0Zo BVOiO33djKSbj5N6 IGNvbGxhcHNlOyBlbXB0 sY2wRBxbqzxia9gokijx Cbw7nw64aAPkh6K6gYU6 N5UkamF3ZKObhXHj NfngxSHEtE1yxagxb8pz bqxkKqTkTETbSPc2RMt9 YRJqpDstPsSbYN19XUZ8 LXOeubEqL8DqRUBg oIheLsP6a8B2Sf1AD7LM XpsbZ7BTIHJVKGcylFS+ FF23om57F9ZaEfmnXis9 WRGxWFO8fLP0yA8s UVLcXGxfg9P7jSL5F5Yu pqMfeq6ty2flWXIaKYyc J00knZNbj0Q3ENJjiQO8 MTUytGwjQiUelF93 Oyc+JKMrvKzqm4XpInye z1lyt3lqzPj1KaiaAUOo ocGjzInnUIP7j4GtHo6r WIKfoUD5bLL1pO7k MuFeDoO0FKntZ003UbWk gEHtLeokG53lD5RvfAU+ DXDgAml9NQUclJlbMQ7l U3LfHAImdwbbkCEr lWuwMG8eJWCfwcpqGMTh bX3uQEGmS0g5XhEyYcB4 LHihD1HhVGArltnmYi72 rZ4zWjCmFtJ8PLbe G6SkkeF4SFDoyNPkCJap QCH7K24rr6Q1MFFzZFVw NUH2cSX0hC2joPmxljjo bGVmdDsgdmVydGlj HKfsTUwuI547CTOecZvs PkNvZGluZyBEYXRlOiAg MDgvMjEvMjAyMzwvdGQ+ DEIsTDD2iQpvEFGz dWAsIOxjDj1dwQunfDmh GO3eFNYxlgupDALzxR4t TQNhzTQsrSidVV4wUJFz dbkhk245IfAjBVB8 RCSexAPdM0RohH9kNvGq GNLbTLOtS6ZdbWWxEJjy O646SGfoIgB2VVIigvXb B9IiOJCbxDycGlQ7 l1Y9Ne8Ch5SrjcwgI8Hm rGNhUdBmTgfrFRl2Z2Ij PjwvdHI+MV30OQOxBO33 HZb6TVM6xKnjXAdd YQMnX1XmwR6kPaSjRLUw ZGRkOyc+PHRhYmxlIHdp ZHRoPScxMDAlJyBzdHls GI4cQy4wSGQoSGGx hOdmcOUaZgTns7rrHVXg GFezSX4elMvrA4DguMP4 RDHwp1n4Mv84L49vI6Xp dXA+BMXdzVI0lVR2 pT5kZfOuLeO3GAmdR095 DvZymZXhJfqii0lwn4zk aDj2DdO1SDBslmEfoYaq BHI0o9RrMw21Z64b IHdpZHRoPSIxNSUiIHZh iSgoew1lkQ2uPi7+PGNv yEU1xIH7kR4dEcEeXeT1 GLppO498HwYgsZUa Gcwzk2ssb6efsMj2ZkEd YOIhnyMcuDdqFIE9i7Nz Ma22D4HyeHsig0QvNhe7 jj27aIBtn0L6vNA7 G8ZzUKPiqwndrRVbcXoy GV2mDYFnjqftYNVueC8k TWXvV7x6HoQuWvO5GWte R1IbhcI4SQOxhISj JCIypZOZaN0pwnpom5mw qvntQtDjPHNbHVv9MLn8 BIWzaCajUvAcVCH3FqW3 UJB1zBXnuY6sgPtx kmlhsP1hJeh+RRO2sQYi zMQUJB0sNlmfuGB+PHRk CID0rWbsQQayGBJhfJ7z PSUkM3e1WwXzYzM4 CKrhG3NqhsK9APFohQCl HPHbyOAPlP8qiyczf6jz vthyWxPtFGPkGSu6FZk5 LWFsaWduOiBsZWZ0 HkN8NJE6fUPmsT8vjGvu yrokoH3zMbh+QmlydGgg EXU1HRh4Z1ZpDyi3MAYe aDieKV6oyIOxGUad Tz7tqPciqUrmRG5nIDBp yvjju146FjKni4tlPHGk vUQsIUoePJJ7P07gj8E8 PZQlOFOrBGS9sHD6 aX2irSlituomiSZcaGli ydQtpRkmCMfkXApgU208 SGDfgDrwVrKxLYk2K0Jr Aca2LLWfiSbnQN4a aLAiHDdtCq3zzXyotOia ND2fAROzzuwsh148RoJg l5grKMMvdPYdKSmoEWX2 T76al6B1GFPiIKOi MKC6xHI5xE7hcSkfmrtx bGVmdDsgdmVydGljYWwt KZruY083WEScvFhfJvBa dAb3Y7CfQny1ELDe nVrmGV6ajGMrZKnhZv6q xCrgiNmnEI3eMEBnimyp f601TuKas4sxQCUfvESa FCmtTND3V22se2H1 CGBxLHYmUEI1xDS6hZ6x bGlnbjogbGVmdDsgdmVy dSulRBxwXLvtO021PJOe cDsnPlBhdGllbnQg XBgoZVl7C7UlZucroND+ LF77AUDwUB33jGLxiPWt e6fdsBz7JpUzVHQgLGH6 yOjxEWwku2BjNKKl V24saHAbh7H5HCUndZgs cGBvUrDmvVL4oC3yZQrg bozqq3knfneuYuenw5pz nd52kF76V78iQPvc ZHRoPSIzMCUiIHZhbGln zv2btB7hVq0+PGNvbCB3 gJD4lN5pOUMoKxT4JZca J715SsHadTYkMyjv o8byy8ukbHy1PaG3XCGo abAanHmhPHX8p2VhBw65 Q85sMDmmYOWhMLYlRQPu GAKnzZtqrs4ibU6k Ii8+MIQnePW3vIA5oZ1i RoTiCdL9YGliO616NsNh bNUrVshxW45rR7HahIE+ GANsSkj8TKHucYfo WQ3wuBRpVKjmAe1qDTR9 SiRxKuCfUJivC1DoXSIq cegjjmkvsNQ0PGByTURu sY44Ig4isGupWZSc bHHXgA0uttlvj3chfzgg CsHhJRCtYWs9XVf0NQWf wAbaCbBzZQY5JeY6UGO9 eFCdjL2rdAndmmqq jT9bN8YjTZDkfoxjEh12 yW6qTkFyZdB7GNbqOoq+ I4yFSoGVDEkzW1xFZWBF WZlVZC7VRVkjyGE+ BHSkDLX7pVpeWRaeYOKo uX6eNDJuA3v2UqDzCxW1 CDioD8SvAWGrlvxgRe51 cY3oAaLySiP5LLkt O3FipzL9YPFweAUjJLsu TUT6O82qx8U5ZTXuAIUp SHS2nZY4tJ4mqQrinxzo bGVmdDsgdmVydGlj ZLuqFYkeU455RBMfjBne NiE8GhOdRmVbCTL1X3Yw Xqk8KOWxbPbhRX7vjZTl ZDulIq1blMgsvJpx VZ4lWFZokjxqEIEvtR4g LEZxsWQhaWpqAK9uBMJn pzveq653HcAzHUN2PHWc vGVrY1HdvR5aGrQb UPVxNGTxG6FppGUwUJgh Z682TMvuOmO6UZYjqaFb X0LiUCYxyPbmUqL6w1V2 Xr2cRVRZHOIuvwfm dGQ+SWHkQAU5eSxwUQtv LJJhwD5fVNFmY1v2HfGl DnT4NMueR0JsKUYklrua Cd45fY1bYwMvApO7 IVigI0GarnB1PIRdiQFi XPuiYGB0X75tl4L3OHKh TPVgVZL7mHS8lN4emZsd bjogbGVmdDsgdmVy wYefGKwsPRzwG549DBTj cDsnPkZFTUFMRTwvdGQ+ WHFnLTX9oMjuPAmcJRJd zV9nJTFiR3c4HdYo QqY6YYzrS6LgHWKyovhy Nv45tX2eMqYcMcC7MHmq J0LhyzE8FIKvfKQaDVas RUG0Y74xg2J5NSWl ISUgZJI8lEC0aT5caWju bjogbGVmdDsgdmVydGlj OTngULgrH901RGTkgAyk ZfWbEWHuSE9hbCdg dGQ+SB46yt29E0AeAihk Znh9CQNsXKK0fAJ6gY2y LFFePVfyg5Z5hAS8R7Oc dmCjta8ig0vhBFYm PAwiW98liBSdh8P8TBTb yAM9EHTaiAyfXoDlwD31 Oyc+CANngQpul7JlHpgx x6wjm2cvzQl9SeOh JAQwhzHybAaeFBQ0v5Gv Kt88Z33hSBobWIQdDAQw MEMpPRTsfNkloo1zwJ2a Ii8+XLQxrBA6oYW4 qO9hXePxYeA1CVfxD565 FrBomGGdSpggr3swp9si qQg4GuLnRUCrhhAokQyk VMP0b6StDo16Y8Tu iQdjj7OrQyu3ko14uPHi m0Z5sLD6F7HaLLJuvwqb nDPflCsqLW1gMEHigitz RXPzqX6lHLNsE5f3 XdRbNcY8GBxkW4MhgsI6 VRZiiMQaKLEyrIJUhJ4i iisyi1zghzxnPdBjDVKq NNn5EJe5HFQwdXue NoKrFIY3TlD9SZU4hRIo fK2kaJalbjsfjO7sKla+ KYz0t2uzpDGoYC2dfOB9 EF33KD20sMNbf5J0 eIA2L2OnAKGuhuusqoco dEM8LWFhSBHwwA39Av0h zWxpUv6hBXMbPSC1YONm hAHdZ4YvuI8gJeZu KWDoEHRvU5GhmEWtEYxl M480VRxmPeX5UGNfagZa J4SbMLMinEwcHwE4h1L4 Ox1SSE89KS97NY79 xBHby1W1bLN0Z8MrUZRp jhohvontkNZ1TCPeSSDz wC54Ov7cqPieMf0wTGHh AUN5IDPdiXKwF2Xy vK0mDfYzZOYcFYIiQ1Oj iRGxLSkyU916IJmzKlN1 FNAthaQeX8RpYNPvcOgd DrG3f4F8Ou1FYr86 BS89TA93hCBus9Z7xOB5 W6DnNALlohkxzhbdsWJ9 NJPvGOAaxD63Oi2ijCxy Ql6bJNPgHSX2XMDb zQWeR2NqzD3lTnUeHMFu UVGuW1FryWLhEPodK446 CBgfOmO1FZTiapBcY0Ue IUPngRtqHaU4p5P8 Ew5GWRxyodw0Z7TfNzbm dHI+LS88IITjEC12eRBc iZKvy3tmmTw4BqAhVTPa YLA0qEyzEIpzt7Kf ZXI (more content not included)... Normal [facility] ED Clinical Summaryon 2022 ED Clinical Summary [facility] - Emergency Department [address] [place] [address] ED Clinical Summary PERSON INFORMATION Name: LIA DESAI Age: 22 Years Sex: FEMALE : 2000 MRN: Acct#: Visit Reason: Hip pain; LEFT HIP PAIN Arrival: 11/15/2022 16:28:10 Discharge: 11/15/2022 17:02:00 LOS: 000 00:34 Check In: 11/15/2022 16:28:10 Checkout:11/15/2022 17:02:00 Address: [address] [address] PCP: Provider, None PROVIDER INFORMATION Provider Role Assigned Unassigned Anusha Palomo CNP ED PA 11/15/2022 16:30:26 Jayne Zuñiga MATERIAL CONTROL SUPERVISOR Nurse 11/15/2022 16:32:34 VITALS INFORMATION Vital Sign [...] verbalizes understanding of instructions given Comment: Normal [facility] ED Patient Summaryon 023 ED Patient Summary [facility] - Emergency Department [address] [place], [place] [address] PATIENT DISCHARGE INSTRUCTIONS Patient Information Name: LIA DESAI Age: 22 Years Date of : 2000 Reason For Visit: Hip pain; LEFT HIP PAIN Arrival Time: 11/15/2022 16:28:10 Primary Care Physician: Provider, None Attending Physician: Bennie Yarbrough DO Comment: Visit Diagnosis: Diagnoses This Visit Hip pain (36962217) Sciatica of left side (M54.32) The Pharmacy at [facility] is open Saturday through Saturday from 9A [...] alcohol and/or drug addiction problems; contact the [facility] 29/10 Crisis Hotline -Text 3UCFB qe 279516. If you received any narcotics, sedation, or [...] and treatment you received today in the [facility] Emergency Department were for an urgent problem and are not intended as complete care. It is important for you to follow up with a doctor, nurse practitioner, or physician?s photographer assistant for ongoing care. If your symptoms [...] so we can reach you if necessary. [facility] Emergency Department has provided you with a complete list of medications post discharge. Please inform your contract admin/provider of your visit and for further instruction on these medications. Any specific questions regarding your chronic medications and dosages should be discussed with your primary care physician(s) and/or pharmacist. Medications That Were Updated - Follow Below Instructions [facility] [id number] [place], [place] [id number], [phone] Updated: predniSONE (predniSONE 20 mg oral tablet) [...] Stop right away (more content not included)... [facility] Progress Note - Nurseon 11-06 Progress Note - Nurse Patient walks to room 6. Patient is alert and oriented. Patient is here for left hip pain. Patient states Saturday she was in the shower and bent over and pain started to come about. Patient stated she had difficulty getting out of the shower. Patient has bilateral low back pain. Patient was seen at [facility] on Saturday and was diagnosed with sciatica. Patient is to see her PCP next Saturday. Patient was prescribed Flexeril and Naproxen. [Electronically Signed on: 11/15/2022 16:49 EDT] Zara July DANIELLE [Verified on: 11/15/2022 16:49 EDT] Zara July DANIELLE [facility] Coding Summaryon 08-28-2022 Coding Summary HTMLBase 64 XannwzdqNGi7dUr+PGhl YWQ+YM5SDBUjG47bxLJq tG8gJ9QTQVoSVzscEOSK HNyXVcLcjkKdEX9nlKYk ZXJu IC8+KR7tJDWtCunokCHn u9V8wCT7A18bzu5cKSlo gDZ9HANhWeBzkwuph1ks uNx4LUgoEawmXfRz VUYdoB79JLE5gD91Vw90 jZPgzFMah5kkzDv1TgHz PJObHKZ2mIxnGJpqz5Xd GNVcE86lzIEpl7B0 IGNvbGxhcHNlOyBlbXB0 iH9hZZraczdmz1cpwcpu Kky3ut81yOObd6K7cTP9 L6QebqU6SPBffKDc FjvogEZVaO3jxqmpu4te kbvnKzJnVKGeGGi8CAm5 QFIahYocIeRsTQ68CAV0 JHRvecJnD4OtDPMd nWbuQkP0x6D6Zp3DJ3MZ YwgnD7ZIWRXSFUapfNX+ PY18qd74E3DcMrlwNga6 YNIfSJQ4oDI0oR6k AEAgQMfmw6P4yKZ5C6Yo nySinw0bt9vyNHQeCFkn I79dxJZjz9M7GDBnsYF1 WGPlaDcgHzMugA54 Oyc+LNPicVbpk3ZtPlka y7alb8cyjRx9ImniUNFx shWlhYjdGIP7i2VoRv8u UAWihRG8rRL9lW1z NeEhCnV2KVryU482KsVv tBRuCqyyN70kL5UlsQN+ BJOrLwf1KNClkFuoDU9t X6LrYYHhqqganKTw iLnyUU8tEGDjqyhwABJl hI7gVYPwY9p7EiKgXaC4 GRrqD9XqTFPnmzdcJu93 dC0gQoNuWkK8ETcv K4VickL0ZAHfcXBiOQwq KXR9Q96td4K5CHVlQDDb LQA9uVL2hO4chXtskurv bGVmdDsgdmVydGlj OQfpKRxnO507ILIsbGav PkNvZGluZyBEYXRlOiAg MDUvMjMvMjAyMzwvdGQ+ MOWpNGP9uQxgWGCo kEFrDRagWy7moHnadKit AP1fKTJmtyjzPKZmxK1q AAZovCDhnSfdTB7rQSIq nkhhq878RzAjNPQ9 QWNhtQZeA8PpxA0dWuKx ZLLxFHKhW4NbcJVvQVwb J706XZmeNkW8ZRCknnEo E2HfTFIozUmgBbT2 n4U0We5Ve4TeopdiE6Cb mOIhJdNuCpjkSCk7G8Hw PjwvdHI+HQ28BYUcIX31 CTu0XDE3cKqpZDxo VHErM6HzqS3zTlJaPLLe ZGRkOyc+PHRhYmxlIHdp ZHRoPScxMDAlJyBzdHls NT5sPo3xVFRpJFOr sZvbvWVrHuXgz3ufBAQz GTeaNK0vyOazD1MtrKT6 PXYiy8o8Lt00R37sN4Mz dXA+TOMtoLO2xTB1 aQ4eEqPrVcV3UDwbY376 FeQkiWMyMylvz1acr0ne yKt5DeC7SUCubaWmzIsd PAB5t2DgAo92N24k IHdpZHRoPSIxNSUiIHZh dPkqxh9rvH6eQm0+PGNv lBY6oQF9xM3uXjMwFtF4 PNbqG053IqDnuOBl Nsszy2rwh2vogWa5WiAu QAYsueCdsAddLYM6t2Sf Mr73X3XsyNtoy4KoJkm7 ag17wIOth3Q2tZP6 L8LqLFNlrjztiGNmxAuc ST5zEPBjnrvcSXLulU8j XOIjF1b7RtHhNaP6JGny A7JosqG6ZRFfuVSa CNShjGQGkJ7tavjnx4tq vlmvCjOdWBQtWMb0OJw9 YVBffJisPeGpDGZ4PrV1 SDM5qVZwxJ5vdLiz tuazqN2zHia+UMN3xJEy aQJKII1yVuqvpQI+PHRk EPU4tFduDLvcQAUdcD7n HDFlU5f2DcHgHsV6 IMyhG9KyasG0LRUliSYc KOFomRCLiL1rjobjd4bn kszvNeNiPZAfUWj5PZr9 LWFsaWduOiBsZWZ0 CzI6PFV0qXHurL3jmVwz lzrqsT8rLyg+QmlydGgg JZV4HQw9J8RwVwa3NLEy iHrlRF2bdGDzAPmw Os4raMkywWqdVD3dIESa suoyi667WjZfq6eaKGEb fUZlUUxbJGX2L15ll8S6 TDFzTEMgEEB0sPL9 pY2icCgkynkemRZgqQff fdCsvKbwXSpcCQafV384 MUDsyFtqQyQsQXl0F4Uc Mhn8GNZedNqnOS1i cWXiUBsuUd3yzVpevNhr KU2tVNBtumxyd172WwRm h8lmWEMqqGYmQNvfCIZ2 S37sv7A4BQUcEKKm JDX5hIB2lT2qvDpvjbxx bGVmdDsgdmVydGljYWwt JUvrK687VCHvbEshHvVi wYh8U3JcUti4DVKt pAatIE2ceBQxPHljMr2w gRtqlFafMX4eGBFmbgve k368KlIwu3eiNFGqvUVz RTryITC4O61ts3E7 GFUxWMIwNAU2xVH0eP9t bGlnbjogbGVmdDsgdmVy uBerIGsbFSfxJ803OYRi cDsnPlBhdGllbnQg BPelBLe3I8ZfBorjlER+ IY67SZGeCX83gECjuJCq c6uwkWa9FlTpFKFgOLY3 bRotGGpfi7IiAOFn K55wdAClr2K1SERrxCtt yMNiFnOlnPV7yB4uNJfs yzpzi1szhggjXzaru1ot kq91cP27Z59nEAzd ZHRoPSIzMCUiIHZhbGln ro9eyQ2tFp9+PGNvbCB3 cHP7dP0mHDTbUfY5UFnx A205JiCevVBsRzuk v9xxb4fuxGb2RvG2SHQg akLsbMpaVES7c4ObYz35 K65yIIpoDPAlPGJcUIAr NOArhHvovh2okJ3y Ii8+EKIrkGG9tEC6tI6e OuLxKfX2GLgwM094JpHp iJYwJqtcA90lF1NjpQP+ TBGcKxg7DOJnqUgv PX5uaODaJAhdYz3zYDZ2 LvKbMhAlZKooV0AqOTQo tjvzbihbtBI6AOEtJWNf yY10Fx6fvRslQCDx fDXUcZ7snzfqf0hjgvfn AkNlYMAiLIn5WWo7XNGp hTszWeRcRGH7UgF9HXD4 iSIccJ4asNtrxsfa qY1dJ2OeVWIpjjqhCh39 yY6lKcSxFuT0PFmtPqv+ P1aAUrEZUTsaF6yPHRMM QYxPMR2EICiucGG+ YFTdYDT7aLucYZdbLTOp kH6hKXCsN2r7SdOkZqE4 FXajE3XvIFNjtsfqGm71 oB2eGhGlHqD0IZvw O6WpdvD6SZHqsDReEAom EIL4C67yy6O8TTXuUDIk SCX5cIO5jY9exPipbwla bGVmdDsgdmVydGlj ZLsrSUgzG195MGSlmVqf WsH3TmAuJjBtLXA4W0Kb Csf3VYCzhUpnRS0esVFu LPlzMv3mzGpcwFfv AI6vHMOagqoxUQCavD7n YZBawEVmoDjwBV7sFCAa ovxle811CeQaJUY4MDZb xZCkH9QdiW3iZmIa YBGsEKVhG5IegFVrQWmy I176HYuqSiU6OFBqrwJn Z1XuVVXoqKvhExV4t9U4 Tc7eABMRYCRkgepa dGQ+KLCbGNC0bUklCPja YOAkfW2dZFUtN0k2TqDa NeC0UIwoC4GfPOGpmsob Ye55dN5kNhGrYwY2 NLaeN2AzdgP3SXQdwTDa KDggZXK2W27xp1J4PFCt OCVsJMD4kQQ3jW0vxDiv bjogbGVmdDsgdmVy rXluUYefWNnmQ334KIVz cDsnPkZFTUFMRTwvdGQ+ FDNsJHT2uJnzBGmfHQVa yT7dYATgD6s5CdVp SpL8PJvbT3StXOFqhpnq Wt11aO5rVlUiHpS9USct Y6WcpoB9TVUlxOMxVUww OKP8R47rs3J4IHXl HWWwWWI3jQH1dM4atZdw bjogbGVmdDsgdmVydGlj ZNrqXBvfK577RMXtiWjm Vk6BHU10VN03Q4Bf PjwvdGFibGU+PHRhYmxl IHdpZHRoPScxMDAlJyBz dDefHS0fPu7vBVYvISAj uOelmVThZmGsz2la KLNgSCeuDX8ysIreF6Pu zIB7RVErs5j4Eu89V53p G6BmoPT+PFKzwRE1nXA7 mY6vGdOyQbU9RScw O532PzHocGUoLddzo9ph q5lacNs8IvBsZTHrnzZn fKqkIDA1l8EtWe27M91g IHdpZHRoPSIyMCUi HLPfhBijua5xlV9vJc1+ AUGhfEG8kLF6vF4tBaTz XmM8HVmvF624GlKalKNb KdodS91rR9NflFN+ HRGjMqu9PHXwhQavHG2t oKHoRZetOz0yWYJ3QhMu OoOrRUcjJ1GbKVQxbcth tvnpxIJ8UXRcXUYc wC30Rx1usInuYn9hJKVg FOJ6PYWgzZAvG8NmjE9h ChBnEYOcNTScB0TxyJNa KEsbW863PEqtAxL0 CZGyaiXtV8IiIWQfkYyn QqR3u3W0Me2TjJodgLNz RU8zCjUxJLs6Q4KoSlj5 PCOtkLycOX7kcVDz NDmhMg8qyHipxWuaRW6i FOXpteufd696LuRrr7td AOGslWFaZMmhTEI5Z64s x8A6DGRjTSPbVSL0 jAX5qR3zeOfoxuteeKKk dDsgdmVydGljYWwtYWxp I366XMXlxAdpPhODXhx5 Y8DkMhn4INGugEaz IU3knWZdKNlaRz7blKiv xOyrRQ6oNYHlqtirr497 HpXwf8jsUNFtwEMkPJux XTR8F53ec4C1YONx SGQrWTT0dOV8wL3rfYyt bjogbGVmdDsgdmVydGlj FRvuRIkiR652EGMajRzf Sq1MTlp8B1KyEbc4 PFVfmJpeSP6etHNiDZtv Su1xkOamsZvkMF5vJRJf aetmy696CvSzd6kyAYFt wEQzDXavKOL6V98l d5C5EHRuWITaCRV8sCD8 oA8fjVqepiagaDMwaPje agInmAxwHPlhYIhnX645 IHRvcDsnPlBheWVy OjwvdGQ+UW08ri02H9Lg VhtqSye6XXAgWZT5fQR7 uT3zWERoZCewa9G9bHF9 M1JgmuAbpk5mv0gy YXB (more content not included)... [facility] Physical Therapy Noteon 08-07 Physical Therapy Note [phone] [id number] #[id number] [facility] Quantitativeon 3 hCG Quantitative 3.0 mIU/mL High 0.0-0.6 [facility] Comment on above: Result Comment: Post -Menopausal Reference Range is: 0.1-11.6 mIU/mL Performed By: #### [id number] ####[facility] (DEFAULT)[address] [place] [address] Coding Summaryon 08-16-2022 Coding Summary HTMLBase 64 YrvqzeyhAZz8yTs+PGhl YWQ+LH8YVWZdL07woZGl nJ3YZ5jDSV9ONXJHSRKM CA0UFC0dnUM0JSzwP1Bj biAv RjeuzSMhBG14ERa4HCV2 uVysCRngmW9slWIvY1t3 BlXqID67gG42EJpxKOCa EhR7EsYhtmhnkVUa P7drMpWfjWPwAnm+PHRh YmxlIHdpZHRoPScxMDAl SgNjuKdyMT6zSm8hUMNe LWNvbGxhcHNlOiBj d2tmXVZhCMtvQR9ufGiw F4VqcXQ4JGGaq3v4Wr01 dHI+VNKxFHK6nNohZXfz q706RgUik8dvYLU1 zXWmLSfeJVC5Y92ya4K0 UGKjKIYiQGU7xUA2gD2j uBkadsxrU6WcdZHtYfT5 ABK7aOMufI5uqZet tmihcP2dUmp+R69ZNY8V ZUGJOU3OAwg3U3GuMtun dHI+IW94HOQfRQ90nYTk iVTmk9puzYi2NfDj TOTjBZQ1gZgqJPpyc5Rw MHFoG75kqTSzp7M9VMYh sCcnpZWvCzBzaCG9tT4x WZexyognq6tjeyiz Okpal6cxny94aO74I67w NBxhGHWyRWB7MLTdPVCy fDfths2sqR1yAk7+IDxj q5aki1daeNa7HiDk SMLwxkRlxQcpSTR9u3St Na23G8ZptGuas4HbVia4 up26pRGxl9O2rGE7GIuo XVLwnM2rVNuwSbJ1 GCIoUfBhzW27tGPaGCrr Hh1zwVxpzSmaPR7uXWMf vvwpSLCynC5hEMZrdJYi kZnePE4sYCXwqqpk o637WiTzSHB5DZZlnPQp S0ViwV3iUcAlDINzHMTh N7AdjVXuOKkwM664ZLxo ApD6QZUdfoCqI9Dg GNEwuYsmStZ1q0J3Ug9J i0PydynhYHH5ZOzeDAE0 VoMsJdNxFiE3P7GmIjb9 GYNcjNvwIW2hZ2Yb SGHdjfinoilsyPF4TXFi QZXyvW62zZGvWWyyRa1l l1J9s605SMEiPBXjgI48 Om9nuPtgWMFqxIKD mG7ncoeab3csrwvjUrTl BVRiFQc1TEf4RSZgmLoj PkSrKLE0OyU2RHL1aLSh iD7paLmbcpfcjB0n Oyc+W07ynM7cFWY5MGI9 bbfnBYBpmyDrDU64UR82 Q8GuWpjgfVAjhXH+PGRp fwXvqBjcEI9dFyPk v6slr8PeRMcwW3WnCKKm BYxaTsg8AYFbLUC6wXZ7 wX2pSYUsJFuwp1M4pYO8 Y5BscsUdhb0kg0tg VRYbWVckW65zsCOcd6O4 QSDxiYF6IVTgfMcwWwXq pD38Thq+DDMpeWpae7Ha Mplsg6edm9rddKj8 IjMwJSIgdmFsaWduPSJ0 j8SwWq56M87hBMkkZGWl GPNmTVVfPTUrkYdrrn1k dN1vMh0+PGNvbCB3 mNA7sF6iRREfSuD5GSun U254VfUunAGhWyiny7oz e9vpyRm6MuDbBRVdgkHg uDhzNLM1a2MgQa83 U60zWPxmCMXtUFTbGJAu DKRjpBjicn2riR0rKw0+ FR5nj5mbmc35kC93kIU+ JNZpBRT5gQzeJZct WYVhnU2fEAzuLtG2AQLi CuRthW90mDYtDXejWv6x qBqqmHbwPZ7wIHHcfzrn u451WvRrh8eoVJSj cGYiTIabCPG8N59wt7O4 TZMyBJMjBIZ1tDH3vJ3x bGlnbjogbGVmdDsgdmVy sOcaNJyjYDnrX662 IHRvcDsnPlBhdGllbnQg SxQoXYg9L6EzPhu8QLTg jLivJV9usMOdCGwtQl5u oUzzjOsxLE2hDAIa ovkvq624XiVgf6vtDJIf fNIyVUcqMOK8K00oa7S6 AQRiJTXmHWF6tNB7pG2e bGlnbjogbGVmdDsg fdHclJbjKRxoJBclG916 IHRvcDsnPkJpcnRoIERh xRA3VP94BC12ePUep2N3 nPL1J8ZqUTQepiln umyjvUA4FEAgRBEbuN50 Cs2hwStkSu9dAUPvGKD3 UBFxuEEjZ7StkX0bZuXd RETjCSLsM4PkcNDs DNtqG069JYvoZqK3ZHLm udMrA6YnXNEngHzzNnZ2 g2Y7Hh4LG5S4JY56WX48 yBWzq0L8uJK7U8Js PMGgnjergznsiOI1GPTp CFIsaP09Jn5uiIeaMt4k JFUtDNQ2MEHslNSnM3By wC0kOzWpHTXdJZQb R5ShsZMtRQizT386ZRse DhJ8ZNDuniFaM1ZnFJUr qBzqVdI9p2P0Du1XACg7 PS17PT43zDMja4Y5 xMD5H5WzWIPhntdvdtmu lEQ6UFZsHUCnaW46Pg5e mWsgUk2gCCAiXSU1IXGy aYPsS3ZweX1wMpYn JFExKHLxF7QemLJmWQkv E826BHwjFuV5HNArnkJd N0HaUCSniVizZaX2q7T2 Ba7GETBwXL39RAG2 wXE1TA87QL32X4AaBbxj dGFibGU+PHRhYmxlIHdp ZHRoPScxMDAlJyBzdHls KZ8zKy1cOJZgGNIp tEdckSCwTmBpy4ytOCZx URcbFZ4pyDsuQ6ZnuUQ3 TEOol1k3Pc07A18xD5Xz dXA+CISqkBX1fBB9 nS4yWaEvAaI5QGqgI280 HuHhbDFvUqdrl5tcg8ez iMa1NfT3ZBGksnEtrVqh TDC1x8AyIq67D76q IHdpZHRoPSIxNSUiIHZh uXkgrz7neQ0gFp7+PGNv tJP4cBC9qP0kYxMxIkD5 EAjrB981GnAcbGKn Fhblu5xnv5kpaVk5VuTm BCHnnxCrnKbrBXP3q8Ph Kn86Q7FaeEzrt3YrDst2 is75bEYsj8T0oZV8 G6FrSKOqianlcLIpsXca CK1hKLHiktovVPGtlH0a PZReH0t9PnTiVmC0BNde Q4LehaF2CIBlsGMd YYiuFYD1Z97wp5Y0QJMz JONrGIG3cID2eQ1eyRxa bjogbGVmdDsgdmVydGlj VKjxXOhgQ107KMNk vPvgJUInuM2yLONkoBEb uBqaCF9bXHNsasmbPgsK TEJFUlQsIFNIRUxCWSBM CXNHMuP0F3TfPkn0 BEUklDxaMP9bsCCjTXgl Zx7lqShcsQxiYD9dOTZs gvmdIXOdmQ6lUODyyICm iTnnAH9rRYXjukjp a484DvAvJJN4SAQoeOBt Z9QdeR3sHnIqMVEaAVNw V5AwwVRjVNgbD440XUug TfA2HSMgiqSzK6Za QBUekEbwFjP8o3R2Ub6b Fx6jEq7nMVTaBV04OW69 kLQym7V0cQA5E7OtFWUi opizrjstbNU3KANz DBGcfO19eRPsSKjsZn7m g6K4z509FCPdMVNhcN66 Br5uoDycJWUiuSNKaC2n xtzig5gyyqitQmOc UGTqFZc3SDa8WZKwfVcw FvUgPGZ0CaV7ENI3vNXi nA8lbGpntwauqQ7tVlk+ AcTvVIAllxG9H3Fk Gsj1ILFapJjpRK6mdYTt PQhsZl8ihOlwqYmbOS6y FSSxjelaGBNfaA4xLNAq cXFnnPamBJ4sEDJm yzmln244JqQiICP6SVBa nYYjI1CkcQ9mPgOnTRZw ANOfO9MooUHwUVwpZ728 HOavFmW4MNIwsrUk M2CzPYPrmDmbEaW7q9F4 Ca1HAX7LOQY7K0CeOww9 QMRcqXtiCO3eeYSkOUcx Oq6xaUpurCrlBQ3l GOPqfmlgBNMgcA3wEEEv kGKhgOldGN3pTCFzbygz w830PiBnCBY4HCVydWQo L4PhwU7vTrGuDYYl TUUhO1ZejZOsHTqmZ378 CMvbJoE7XHDbxlFfQ2Hw PSGgyWwaFpO5z3K8Hu1R dHDeR8LtJ9l6F5Tp PjwvdHI+JE16ZUVcGK22 nMGhdSXyq9lsnBl1RiIt YAVsWKZ4qXedRGnhz6Em WJBzZ30htRTth7Q9 IGNvbGxhcHNlOyBlbXB0 qG2nTAhymfhck7tntkxf Xmylh5boqu67zR27L15x IHdpZHRoPSIzMCUi AKLntZvawe2wjE3sTb1+ STNiePF2lQP2eP2gHvVb PdL5CNavR547KsFkeJAj Nlyso6gut1wmnOy0 IjIwJSIgdmFsaWduPSJ0 k5CgKv64N23pEMykDKGd ZWEbZENvTKAeqDubdw7v sE6eCc9+MR3bv5ex an06bM32mAS+PHRkIHN0 rJgbUFdtOMHefM9iQFbq QkH0QZNeKtKwiY86kDLa DHelSj9odWycrTrr HL5wTWJxqnvxd383KyAw t8bfFSSbhRLfNEblIYP4 W31sl8Z7QWZgOVSoVAC2 xUT1dS3zzJopspog bGVmdDsgdmVydGljYWwt DOaqZ814APQfwYunPoMn cZYcI3iqggZDII8cEmkh dGQ+TUSkLBL4xQuq UEprRNRkkF8rYKReL4c9 JuPtXdN8VXgvK7YxjyX8 TRMrpAOqZIYyhLPAyS5e ltajl7teduyiQfEo LXTlQSr9QPl9OJAxdAma NoLrKBC0IbS1SDH3kXYw vB8ogItkrhhqfU3gJot+ RklOOjwvdGQ+PHRk CWG4qIptDPjbWUQofZ8l FGZaF4l6ThKgToM1WEpq M1JsbrT8OKSpeYPsGUZg zWYEjP5cndhie9gs exwhRqJlETWtGTb7KTu1 RBVwuFmxImOpUJP5BlF2 LCN4aUOhxU1xvTwxvxoi zV0pFqw+TVJOOjwv dGQ+KGIvGNJ3eGjkHDcx QIEslU9yTFEaR2u5NnZy EpW4XGvlK4BzvyB9ZFCg xSWqWOOamIZLeL3f chrik7bhsdyoSiIiRSSx CEg5JSd6PSDsyBhpLgJc TQV1YiE2OCO1eZYlgV8y oVnxefhyjJ3eOqu+ MWL0ZUP6NR18DR35V6Pu PjwvdGFibGU+PHRhYmxl IHdpZHRoPScxMDAlJyBz kNnuGV5nDc9yWQRc LWN (more content not included)... Normal [facility] .Auto Diff 08-11-2022 Auto [place] % 7 % Normal 04-19 [facility] Comment on above: Performed By: #### 1 [id number], [id number], 0478881, 3258270, [id number] ####[facility] (DEFAULT)[address] [place] [address] 76610 Baso Abs# 0.1 x10 Normal 0.0-0.2 [facility] Comment on above: Performed By: #### 1 [id number], [id number], 5670225, 4125638, 63435961 ####[facility] (DEFAULT)[address] [place] [address] 51025 Basophils/100 WBC (Bld) 0.8 % Normal 0.2-2.0 [facility] Comment on above: Performed By: #### 1 [id number], 7589187079, 6832466, 1843386, 36315671 ####[facility] (DEFAULT)[address] [place] [address] 18435 Eos Abs# 0.0 x10 Normal 0.0-0.4 [facility] Comment on above: Performed By: #### 1 [id number], 0856964286, 9280479, 4021905, 57745186 ####[facility] (DEFAULT)[address] [place] [address] 59842 Eosinophils/100 WBC (Bld) 0.4 % Low 0.9-4.0 [facility] Comment on above: Performed By: #### 1 [id number], 2559912942, 8233104, 9434541, 44157464 ####[facility] (DEFAULT)[address] [place] [address] 04173 Lymph Abs# 3.0 x10 High 1.3-2.9 [facility] Comment on above: Performed By: #### 1 [id number], [id number], 3896567, 9160700, 72074523 ####[facility] (DEFAULT)[address] [place] [address] 46913 Lymphocytes/100 WBC (Bld) 25 % Normal 14-48 [facility] Comment on above: Performed By: #### 1 [id number], 1679926883, 2275551, 2815986, 98716360 ####[facility] (DEFAULT)[address] [place] [address] 23739 [place] Abs# 0.9 x10 High 0.0-0.8 [facility] Comment on above: Performed By: #### 1 [id number], 8841307984, 8165827, 7856761, 51426491 ####[facility] (DEFAULT)[address] [place] [address] 98228 Neut Abs# 8.1 x10 Normal 1.5-9.2 [facility] Comment on above: Performed By: #### 1 [id number], 3781584365, 3435587, 8374283, 79648377 ####[facility] (DEFAULT)[address] [place] [address] 88345 Neutrophils/100 WBC (Bld) 66 % Normal 44-88 [facility] Comment on above: Performed By: #### 1 [id number], 8741496154, 5164982, 9265897, 58016042 ####[facility] (DEFAULT)[address] [place] [address] 81833 BMP Standardon 08-11-2022 eGFR Non AA >60 Invalid Interpretation Code [facility] Comment on above: Performed By: #### 1 [id number], 5130424147, 1111753, 3431772, 38377241 ####[facility] (DEFAULT)[address] [place] [address] 07109 eGFR AA >60 Invalid Interpretation Code [facility] Comment on above: Performed By: #### 1 [id number], 7517771115, 1102793, 1049994, 20534874 ####[facility] (DEFAULT)[address] [place] [address] 73850 Anion gap [Moles/Vol] 18.5 mmol/L Normal 5.0-19.0 [facility] Comment on above: Performed By: #### 1 [id number], 2203368276, 1753312, 9280863, 05917812 ####[facility] (DEFAULT)[address] [place] [address] 64193 Calcium [Mass/Vol] 8.7 mg/dL Low 8.9-10.3 [facility] Comment on above: Performed By: #### 1 [id number], 1780553111, 5793023, 9383656, 07937004 ####[facility] (DEFAULT)[address] [place] [address] 34113 Chloride [Moles/Vol] 100 mmol/L Low 101-111 [facility] Comment on above: Performed By: #### 1 [id number], 3164035455, 9321918, 4095905, 89380512 ####[facility] (DEFAULT)[address] [place] [address] 14225 CO2 [Moles/Vol] 24 mmol/L Normal 21-32 [facility] Comment on above: Performed By: #### 1 [id number], 9430937819, 2827755, 2986573, 96898802 ####[facility] (DEFAULT)[address] [place] [address] 25848 Creatinine [Mass/Vol] 0.57 mg/dL Low 0.60-1.30 [facility] Comment on above: Performed By: #### 1 [id number], 5653208322, 7225165, 3817906, 26055178 ####[facility] (DEFAULT)[address] [place] [address] 69863 Glucose [Mass/Vol] 98.0 mg/dL Normal 74.0-118.0 [facility] Comment on above: Performed By: #### 1 [id number], 1064581816, 3854595, 8954103, 19229597 ####[facility] (DEFAULT)[address] [place] [address] 24334 Osmolality 274 mOsm/L Invalid Interpretation Code [facility] Comment on above: Performed By: #### 1 [id number], 3632665923, 3229253, 0259805, 72813757 ####[facility] (DEFAULT)[address] [place] [address] 05391 Potassium [Moles/Vol] 4.5 mmol/L Normal 3.6-5.1 [facility] Comment on above: Performed By: #### 1 [id number], 6140793458, 5055275, 5274795, 34194975 ####[facility] (DEFAULT)[address] [place] [address] 03354 Sodium [Moles/Vol] 138.0 mmol/L Normal 136.0-144.0 [facility] Comment on above: Performed By: #### 1 [id number], 5552409686, 8908872, 8519904, 99493015 ####[facility] (DEFAULT)[address] [place] [address] 20753 Urea nitrogen [Mass/Vol] 9 mg/dL Normal 8-26 [facility] Comment on above: Performed By: #### 1 [id number], 9245409774, 1258159, 2018639, 72607405 ####[facility] (DEFAULT)[address] [place] [address] 65610 Urea nitrogen/Creatinine [Mass ratio] 15.7 mg/mg Normal 4.6-16.2 [facility] Comment on above: Performed By: #### 1 [id number], 5621742633, 0904323, 1495791, 81416984 ####[facility] (DEFAULT)[address] [place] [address] 30321 CBC w/ Auto Diffon 3 Erythrocyte distribution width (RBC) [Ratio] 14.1 % Normal 11.5-15.0 [facility] Comment on above: Performed By: #### 1 [id number], 8708068980, 3555435, 2954937, 55621348 ####[facility] (DEFAULT)[address] [place] [address] Hematocrit (Bld) [Volume fraction] 36.8 % Normal 33.7-40.4 [facility] Comment on above: Performed By: #### 1 [id number], 8119089454, 4302383, 4720566, 62082701 ####[facility] (DEFAULT)[address] [place] [address] Hemoglobin (Bld) [Mass/Vol] 12.1 g/dL Normal 11.3-15.9 [facility] Comment on above: Performed By: #### 1 [id number], 1165890046, 6084984, 7117992, 22439941 ####[facility] (DEFAULT)[address] [place] [address] Man Diff? Auto Invalid Interpretation Code [facility] Comment on above: Performed By: #### 1 [id number], 6921670343, 2089190, 9068522, 64951505 ####[facility] (DEFAULT)[address] [place] [address] 94970 MCH (RBC) [Entitic mass] 28 pg Normal 24-34 [facility] Comment on above: Performed By: #### 1 [id number], 3152358533, 0548000, 2333963, 41384278 ####[facility] (DEFAULT)[address] [place] [address] 28132 MCHC (RBC) [Mass/Vol] 33 g/dL Normal 26-37 [facility] Comment on above: Performed By: #### 1 [id number], 7258343319, 8007520, 8831519, 34163954 ####[facility] (DEFAULT)[address] [place] [address] 65789 MCV (RBC) [Entitic vol] 85 fL Normal 81-100 [facility] Comment on above: Performed By: #### 1 [id number], 9654396165, 2357611, 1315658, 59045993 ####[facility] (DEFAULT)[address] [place] [address] 66860 Platelet 367 x10 Normal 138-427 [facility] Comment on above: Performed By: #### 1 [id number], 2725916668, 5608315, 9327884, 45670880 ####[facility] (DEFAULT)[address] [place] [address] 34115 Platelet mean volume (Bld) [Entitic vol] 8.1 fL Normal 6.3-10.2 [facility] Comment on above: Performed By: #### 1 [id number], 0859741721, 1305862, 5802702, 81964996 ####[facility] (DEFAULT)[address] [place] [address] 07640 RBC 4.33 x10 Normal 3.70-5.30 [facility] Comment on above: Performed By: #### 1 [id number], 1081926414, 0548640, 9407681, 78603100 ####[facility] (DEFAULT)[address] [place] [address] 56441 WBC 12.2 x10 High 3.5-10.5 [facility] Comment on above: Performed By: #### 1 [id number], 6422365420, 1277544, 4459875, 40877729 ####[facility] (DEFAULT)[address] [place] [address] 31116 ED Clinical Summaryon 2022 ED Clinical Summary [facility] - Emergency Department [address] [place] [address] ED Clinical Summary PERSON INFORMATION Name: LIA DESAI Age: 21 Years Sex: FEMALE : 2000 MRN: Acct#: Visit Reason: Vaginal bleeding - < 20 wks ; 7 WEEKS, VAGINAL BLEEDING Arrival: 08/11/2022 12:41:34 Discharge: 08/11/2022 16:30:00 LOS: 000 03:49 Check In: 08/11/2022 12:41:34 Checkout:08/11/2022 16:30:00 Address: [address] [place] [address] PCP: Provider, None PROVIDER INFORMATION Provider Role Assigned Unassigned Adamaris Jaeger PA-C ED PA 08/11/2022 12:44:39 Arabella Romano MATERIAL CONTROL SUPERVISOR Nurse 08/11/2022 12:45:45 VITALS INFORMATION Vital Sign [...] Resolved Disease caused by 2019 novel coronavirus ([id number]): Onset on 11/23/2020 at 20 years. Resolved. Comments: 11/23/2020 CDT 16:07 CDT - SYSTEM Problem added by Rule (IC_COVID19_AUTO_PRO BLEM) following 2019 Novel Coronavirus (CoVID-19), MILY L from Nasopharyngeal Swab collected on 22-NOV-2020 16:44:00 EDT tested positive for COVID-19. no history (072118892): Resolved. Contact dermatitis (62484116): Resolved.. Surgical history: Tonsillectomy (726064702).. Family history: No family history items have [...] quant draw (more content not included)... Normal [facility] ED Note - Provideron 023 ED [...] Resolved Disease caused by 2019 novel coronavirus ([id number]): Onset on 11/23/2020 at 20 years. Resolved. Comments: 11/23/2020 CDT 16:07 CDT - SYSTEM Problem added by Rule (IC_COVID19_AUTO_PRO BLEM) following 2019 Novel Coronavirus (CoVID-19), MILY L from Nasopharyngeal Swab collected on 22-NOV-2020 16:44:00 EDT tested positive for COVID-19. no history (724300176): Resolved. Contact dermatitis (09192615): Resolved.. Surgical history: Tonsillectomy (999539478).. Family history: No family history items have [...] % Auto Lymph % 25 % Auto [place] % 7 % Auto Eos % 0.4 % LOW Auto Baso (more content not included)... Normal [facility] ED Note-Nursingon 08-11-2022 ED Note-Nursing Patient walked into the ED with c/o abdominal cramping and bleeding. Patient is 7 weeks . Symptoms started today and cramping is getting worse. Denies taking any medicine for pain. Did have right lower back pain a few days ago. Was 15 weeks in may, had a miscarriage and had to do a D and C. Normal [facility] ED Patient Summaryon 023 ED Patient Summary [facility] - Emergency Department [address] [place], [place] [id number] PATIENT DISCHARGE INSTRUCTIONS Patient Information Name: LIA DESAI Age: 21 Years Date of : 2000 Reason For Visit: Vaginal bleeding - < 20 wks ; 7 WEEKS, VAGINAL BLEEDING Arrival Time: 08/11/2022 12:41:34 Primary Care Physician: Provider, None Attending Physician: Andres Duval Comment: Visit Diagnosis: Diagnoses This Visit Miscarriage (O03.9) Vaginal bleeding - < 20 wks ([id number]) The Pharmacy at [facility] is open Saturday through Saturday from 9A [...] alcohol and/or drug addiction problems; contact the [facility] 29/10 Crisis Hotline -Text [address] 600253. 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 It is important for you to follow up with a doctor, nurse practitioner, or physician?s photographer assistant for ongoing care. If your symptoms [...] so we can reach you if necessary. [facility] Emergency Department has provided you with a complete list of medications post discharge. Please inform your contract admin/provider of your visit and for further instruction [...] may ma (more content not included)... Normal [facility] Extra Redon 08-11-2022 Tube Collected Yes Invalid Interpretation Code [facility] Comment on above: Performed By: #### 1 [id number], [id number], 0540615, 9889996, [id number] ####[facility] (DEFAULT)[address] [place] [address] UA Caxpc0lx 08-11-2022 UA Amorph. Rare [facility] Comment on above: Order Comment: Urina lysis Microscopic order added on by Discern Expert Rules system. Performed By: #### 1 [id number], [id number] ####[facility] (DEFAULT)[address] [place] [address] UA Bacteria Trace [facility] Comment on above: Order Comment: Urina lysis Microscopic order added on by Five minutes Expert Rules system. Performed By: #### 1 [id number], [id number] ####[facility] (DEFAULT)[address] [place] [address] UA Mucous Trace [facility] Comment on above: Order Comment: Urina lysis Microscopic order added on by Five minutes Expert Rules system. Performed By: #### 1 [id number], [id number] ####[facility] (DEFAULT)[address] [place] [address] UA RBC 0-[address] [facility] Comment on above: Order Comment: Urina lysis Microscopic order added on by Five minutes Expert Rules system. Performed By: #### 1 [id number], [id number] ####[facility] (DEFAULT)[address] [place] [address] UA WBC 0-[address] [facility] Comment on above: Order Comment: Urina lysis Microscopic order added on by Five minutes Expert Rules system. Performed By: #### 1 [id number], [id number] ####[facility] (DEFAULT)[address] [place] [address] 13222 UA w Culture if Ind Standard on 08-11-2022 Breakpoint UA [facility] Comment on above: Performed By: #### 1 [id number], [id number] ####[facility] (DEFAULT)[address] [place] [address] 54334 Color (U) Yellow [facility] Comment on above: Performed By: #### 1 [id number], [id number] ####[facility] (DEFAULT)[address] [place] [address] Culture? Not Indicated Invalid Interpretation Code [facility] Comment on above: Result Comment: Resu lt created by rule GL_MAGR_ADD_UA_CULT Result created by rule GL_MAGR_ADD_UA_CULT Result created by rule GL_MAGR_ADD_UA_CULT1 Performed By: #### 1 [id number], [id number] ####[facility] (DEFAULT)[address] [place] [address] Glucose (U) [Mass/Vol] Negative Normal [facility] Comment on above: Performed By: #### 1 [id number], [id number] ####[facility] (DEFAULT)[address] [place] [address] Ketones Ql (U) Negative Normal [facility] Comment on above: Performed By: #### 1 [id number], [id number] ####[facility] (DEFAULT)[address] [place] [address] 89589 Micro? Indicated Invalid Interpretation Code [facility] Comment on above: Result Comment: Resu lt created by rule GL_MAGR_ADD_UA_MICRO Performed By: #### 1 [id number], [id number] ####[facility] (DEFAULT)[address] [place] [address] 53808 UA Bilirubin Negative Normal [facility] Comment on above: Performed By: #### 1 [id number], [id number] ####[facility] (DEFAULT)[address] [place] [address] 99536 UA Blood MODERATE Abnormal NEGATIVE [facility] Comment on above: Performed By: #### 1 [id number], [id number] ####[facility] (DEFAULT)[address] [place] [address] 73907 UA Clarity CLEAR Normal CLEAR [facility] Comment on above: Performed By: #### 1 [id number], [id number] ####[facility] (DEFAULT)[address] [place] [address] 38346 UA Leuk Est Negative Normal NEGATIVE [facility] Comment on above: Performed By: #### 1 [id number], [id number] ####[facility] (DEFAULT)[address] [place] [address] 53016 UA Nitrite Negative Normal NEGATIVE [facility] Comment on above: Performed By: #### 1 [id number], [id number] ####[facility] (DEFAULT)[address] [place] [address] 44295 UA pH 7.0 Normal 5-8 [facility] Comment on above: Performed By: #### 1 [id number], [id number] ####[facility] (DEFAULT)[address] [place] [address] 29464 UA Protein Negative Normal NEGATIVE [facility] Comment on above: Performed By: #### 1 [id number], [id number] ####[facility] (DEFAULT)[address] [place] [address] 90143 UA Spec Grav <=1.005 Normal 1.001-1.035 [facility] Comment on above: Performed By: #### 1 [id number], [id number] ####[facility] (DEFAULT)[address] [place] [address] 48837 UA Urobilinogen 0.2 mg/dL Normal 0.2-1.0 [facility] Comment on above: Performed By: #### 1 [id number], [id number] ####[facility] (DEFAULT)[address] [place] [address] 09117 Urine Source Clean Catch Normal [facility] Comment on above: Performed By: #### 1 [id number], [id number] ####[facility] (DEFAULT)[address] [place] [address] 25979 US 1st Trimesteron 08-11-2022 US 1st Trimester EXAM: US 1st Trimester HISTORY: vaginal bleeding, 7 weeks COMPARISON: 08/08/2022. TECHNIQUE: Ultrasound obstetrical first trimester. FINDINGS: Single intrauterine gestation which has migrated into the lower uterine segment. No cardiac activity is identified. Yolk sac is present. Rupert-rump length measurement of 1.1 cm yielding estimated [...] Signature): Jori Churchill 08/11/22 4:11 pm Technologist: [facility] US Transvaginalon 08-11-2022 US Transvaginal EXAM: US 1st Trimester HISTORY: vaginal bleeding, 7 weeks COMPARISON: 08/08/2022. TECHNIQUE: Ultrasound obstetrical first trimester. FINDINGS: Single intrauterine gestation which has migrated into the lower uterine segment. No cardiac activity is identified. Yolk sac is present. Rupert-rump length measurement of 1.1 cm yielding estimated [...] Churchill 08/11/22 4:11 pm Technologist: GANESH Myers [facility] hCG Quantitativeon hCG Quantitative 4616.0 mIU/mL High 0.0-0.6 [facility] Comment on above: Result Comment: Post -Menopausal Reference Range is: 0.1-11.6 mIU/mL Performed By: #### 1 [id number], [id number], 2697910, 5567150, [id number] ####[facility] (DEFAULT)[address] [place] [address] US PREG TVon 08-08-2022 US PREG TV [...] by: CHRISTIAN KATE Date: 2022-08-08 16:56 Normal [facility] Coding Summaryon 06-19-2022 Coding Summary HTMLBase 64 HoswujylPKy1hNq+PGhl YWQ+TE3MKDFsY42xgICr gK3TP0fCOZ8FSUMJOIOH TL8ORS2utWG7AMpfD9Vv biAv XqhkyJJvOM31KAn4PLR3 kNneKZjlcN8ijFWoB1j3 BlFmTQ47cL61LYikQPKf TjQ1YmNyfolocFKs G5ryYeHrmCKhEwc+PHRh YmxlIHdpZHRoPScxMDAl DmZehBolEW6nTg1rZMBy LWNvbGxhcHNlOiBj s8jaMAYmMOuqME3kzKrp Y1EnyVZ4AHTni8r0Bh99 dHI+IUObTIH8cDkzKExh s148FhCga3tgXIA5 xSOkKKujTVV2Z84xa1D9 DTThKXSaBUJ1oAI9eB6i yLklxhbuL1SjrZHxKcG6 HFM5qWKrgC2noNqa pqlihS6xAth+Y92GLL7P BBGGWJ8WWgz3Q4WkYykk dHI+EV87ETOeSZ83oSEu hKDwu2malPp5TrAk MIFtLVP7sGfbWBfwk9Ix MPDyQ33gmZJvh9Z6BBSc iIoiqZOwZzHfmVS8rW2r DKswnspgr0zgabho Shepc5uhkl46jJ76J18w IQwvMXBaYJZ1ZFDyPVTg tUgxvs1xiX8aEo8+IDxj b3ngb4cawUf6NhQu BPWkksNihXafUXV4f9Oc Dw37G2PfzZtjh3VdIuj2 sp18pPMda9N7rQZ2ZVej TSJdoP8xJHdjDrN3 AHNyPtMvbR34rIYuQGne Jt4koAmuxTwhLC0oPSTz hvtuVOAckU0jFPIjhOEy yJwdHW1wDGJsnvjm c262NnWeIFE1PNOfyYDn K6TcpT8gLmEgNCFeAXNu S0NynDGxMQpiW643ECkk LwX1WJLrzlUsV6Ds CPQbkNrlDoC2o5N5Mu3C v0SdfpmqKQI5LIhnOLGq KbE7RkEuZoB9B7MxQqo6 VKZizSfvZT9uX8Bh UTYkybzrpdukaJB4RXEh MFVghW63bOIvVPcuLn0z m4M8z486FWHlXULosR07 Ui9zqRkfTXEipBCD gA5ccpbrt6wodbyvSuPq ZNGgCQn4EYj9LAAduMjs NjLyMUF1RaO5SHW0xSKp bI7mrRkjylsbvT6g Oyc+W87qfB5gJCX9EAV8 vkydBHAtziPwLP27WM73 P9XqSvlnqYWvkAC+PGRp xuGuyEojLG3qLkOb w1hsi5XwKClxP8YuRRZj UVhpFoe4DIGhIAO6yUV4 wT9oIGGsLJbfr5T1lWJ7 B3YbrgXihe6lq6ru CMDrLReaK79odDQos2Y6 GRWsmGT3ODApdMfvYwTy bO15Ovo+REGtxZzln9Wr Pypup2upr9nqvLa4 IjMwJSIgdmFsaWduPSJ0 t6GmNq17X52mYWzzSJEi NOCuOGOvHJKfgVxlsn4s uM4fZk5+PGNvbCB3 sBO1tK1mMMKlFuB0PYln E733KhHspCQrSmyec2vj o3ukcLb8TyBeMLAbqhPj zWcsNKT1r4VzZk61 I65lFJibJUJsTOSrHTGh OHVzxNqbwc4mfE1lMk9+ CZ8io0fbld14mQ63nJM+ WFAxYGB1cVanDTpm OAUldR2uZIcgCpU5XTUx SyQmpO31gPMxUIwxEo9j cFvexKiqYQ2tIWUlbdbl r990GdUkf2nhFROs zNPpSPfxSKJ0O63ni6L8 KNFmONQlWAQ5mQP9eC4x bGlnbjogbGVmdDsgdmVy iOutIRaiJVieU807 IHRvcDsnPlBhdGllbnQg GsQsSVo3Q1BxPwk0GUPh kMiiTZ6ncBVqGGucPu5j xMyjhAlnEK1sJYCd wrnur543KlTau3iyXVIl eCDzDBghWRJ0K68vi8A2 PRCmBJAkRMQ3eCV2xJ7u bGlnbjogbGVmdDsg ocNrzCuwQWyuNPraX506 IHRvcDsnPkJpcnRoIERh uLT1KL19DR73tKYwc5T3 rUD8M3HqZSXzztkm fsrqoJE7HGTlIDWieY37 In7stUktPp5kBZIaBYT5 KDIkrAPnW5PzrD2hVnGm UONkOZZnI2DziBJp XQnzU830WXdbYaN9JBFc doLnH5VhOFCnfKivBeT2 o6I1Me2XS1A1JS16JD02 zLDvg6T2fID0N0Ki EKIagylybajyvOS9IJOd FNComO34Cc8ljKpoAd7z REAeDDO2PYBhuKOkC2Id aE3fAyGrYIAsTRMl N9WhlNZmSFonZ296HVld GcL1LWRneiYiL9LpZDYv qArdJcI1b4U5Hi7OUCa0 JK94LU07gMKqa7Z3 eXR2Q1VjDLLyzlvbryqy gTO1QILwRWQdgS53Ow5d vBowSx2yMVNsPXT5LMIe lZDjZ2KvhZ8nBvXm HHVfJZLlE5TazNPkJVzs K609ANhhIrT2APGofbNi D1CwBXAgqAhqWyA2z1V5 Yu8FUZDiCC35ZPO2 lBV0IZ62SY20S5UtXfgt dGFibGU+PHRhYmxlIHdp ZHRoPScxMDAlJyBzdHls VR1qCu0sNBBsVIJz lGxemWPzTbXdh4vfVMMw HMjlFS4ybJpbN5UwvEL2 QBTvy8c4Xb97Q26yH4Ty dXA+ZAYccQK6dSC2 gV4iWcRoKbU5IAdgC241 VaFrqJLfZpade0bsv0bw xAa5PkD8FMDwdtDbdNmu IWX7b2JoKz45I10c IHdpZHRoPSIxNSUiIHZh kXnbji4jbS2zNu5+PGNv xLU4qHH6aF7fAeMoOiO2 UWtrI422ZwZxgFBx Xhekp3moa3ffjPt1UlNi TALbduBjrUvsPLN0h0Ha Nx37D2JmcJifr7DcNsq0 pb19dFAqx3I5eDY5 E0EfLEZiizhqdYQjqTug IR9eENAlgavfCJDvqD8q LCEsQ6m6FrVjErQ3UHbi W9AxutM9GIMjlHBb XCpzZPO8C13lp6S9NVZm DNFkXUR7cGI8dN2ehJmh bjogbGVmdDsgdmVydGlj JJvrJRxuR365GVGw uQlfWIDwzP3sNNHytXKo qKrxCZ8mLWOqevpuKonW TEJFUlQsIFNIRUxCWSBM UPVUXjD0G6EbQot5 AJGwoVjzWQ9avTGoSGzr Ft9cuAqsiQljKK0hRNPt yoidQKPlnA6iSIAvoKNe uTpdLW0kUVRwcbwr g814HoVsHDY3BASevKPs E7KyvB9hPuEqEIZtXZYy T8PqkDNuKRvpE847AYum KfG0OCTrzlWgW2Fh JZHliPkjGcW0o3G9Rd9b Ie0xAs2tXNFeCF73NP69 eJIvz4W4tFI8Q0BgJDKv yjytnmnqlTB4EISe NHPdpA05tCUfNUyyZf2n i8C8b036MSKmQIIheQ61 Sc2roFtbHZLeiCBWuH8t ornug3rdfbrsVmKt CQFlAMz2LFn1JVXmjWze EmGoTKM9OoJ3GHW6gCZn uA8neWlyywujqE5pKec+ ZoAmLJJuilM4J4He Gsh6DFLozWvnSQ5tlSOq GKcoHy5qmOgjtRgmSG8i JYScsuvcLPNceU7aTPWf bXExpDdlYR8iTWAr gsmzr261FiVzVIJ7QPEp gOZvA3ZawO8zFiHgHKWu AFLtG7SjhMIsMAhuO343 DUjhSgD8PFOssvNp B4DbMAMxhHhsXaU7s6R4 Py9OFA0LRPY7L4LiSmx3 KACltGqrEJ6tsZUeALpz Zr0zrUiryJtyKJ5v ZNIhnhvaGNAvdA8pJORh nSLahOivAY5gCAAdjjym f509XbVuGBP2SSPgjYWm X7SarF1uQsSdONAa MQKrU2YvhFMfAPuyB074 LXiuHjY8NXAfrhOlG6Lg HZPetSawOfH9v9X3Xy0C UDwvdGQ+YV46gp59 J3EoIpuaJwn8ZNSmZMB5 hWZ6fE6aROUaOBcum0V0 eOM9E7AtqrIvbe8us9ty FAFoBLcxM90hkLUl o6D8QAPtbCD2XWMuzAsp UpWyjB89Nff+PGNvbGdy r6MePqssr9bnp9tstUs5 IjMwJSIgdmFsaWdu OIT6x8KtQr43G06gQZvi ZHRoPSIzMCUiIHZhbGln cv7nzQ4wVf4+PGNvbCB3 jDS3aC2nCvTzKaQ7 ZDvgI919VnOdxTXkQhqi f9mpx0bxoOh1OyCjPCZq jhCyxUukTHF8z1BtLm79 S1DnlQjiw0NkPlg6 kz19xBHih0J7aEY8L5Iy NSXxqdkdpVBprQxnLF5v TUSifcorRQOwnW5rQQWr M3d4RzNlJcP5IHsp A4FvdwN9QIDlkXEmIZRu lMDFbL1kccsay8xhvieo DfAsZTTxBHw0GYu0GYRf xBnnMbEbRKU0TjP6 NHK9hVDyiT8icRktmiva pP2eJxp+WQb7v3aniYNr QR8goDE4RK03ZQ00dGTd p2X8uLC4N9DcIMAn lrqqzeqmeFG6IVTeBKIr gV66Rz9uoWswJl6zKAKu CAO3RNPdqGUaM5WrhY6t DnHmIKDeSXLiM5Rh bKXaWEsiY417ALctEbJ5 LIYorgSvQ2LzLARhcRwt QmZ7n7G5Dz3GQB98TY33 CQ54nLBxk8U1uOQ9 W4AgGGKonwxwnalaqBT9 ZNEjFIKgdR42Ou9zvUgo Sf5jHFRqPYR1GJVvcCRz E5JavT3iUePgCUYv AFZpC2SiuZNsFOdhM775 PMukKuI7XQRrrgInK7Gp YWScrWirTrL2q9E8Rb1B Za20EU09SC95iOOc v1V2lWL0U2TwIZKgfzzn dqrldXQ6UJUyFRSokW19 Mr8zgOcsMw1pXPHoUED7 KBYmqSGoG1VocH6h YnPnDIDkUMAcH1PaeTKp XMifU637DUliQwX8DXIk tbZkY2NuQIRzmFyeQgI0 a1Z4Cl9FPGazjrv2 G3HpTyuhoVX+JE00EYTu LM97tKGgzAWry9nkfTn8 HzSaGPYqZZF6pWucAPsr g6DkIZOxE71ckFFl c2U (more content not included)... Normal [facility] C Throaton 06-14-2022 C Throat Ordered by Discern. Normal throat jonny isolated No pathogens isolated Normal [facility] Comment on above: Performed By: #### 1 [id number] #### [facility] (DEFAULT) [address] [place] [address] ED Clinical Summaryon 2022 ED Clinical Summary [facility] ? Urgent Care [address] [place] [id number] Clinical Summary PERSON INFORMATION Name: LIA DESAI Age: 21 Years Sex: FEMALE : 2000 MRN: Acct#: Visit Reason: UC - Sore Throat; UC - Body Aches; SORE THROAT, COUGH, BODY ACHES Arrival: 06/12/2022 16:17:17 Discharge: 06/12/2022 17:23:00 LOS: 000 01:06 Check In: 06/12/2022 16:17:17 Checkout: 06/12/2022 17:23:00 Address: [facility] [address] [place] [address] PCP: Provider, None PROVIDER INFORMATION Provider Role Assigned Unassigned Birdie James MATERIAL CONTROL SUPERVISOR Nurse 06/12/2022 16:19:28 Nelson Sharma PA-C ED PA 06/12/2022 16:22:15 VITALS INFORMATION Vital Sign Triage Latest Temperature Tympanic Temperature Temporal Artery Pulse Rate O2 Sat 98 % 98 % Respiratory Rate Blood Pressure /76 mmHg /76 mmHg MEDICAL INFORMATION Medications Given: Allergy Information: Adhesive Bandage; Zithromax PHYSICIAN DOCUMENTATION DISCHARGE INFORMATION: Discharge Disposition: Home Discharge Location: Home PATIENT EDUCATION INFORMATION Instructions: Cough, Adult, Pfgq-wj-Biuh; Pharyngitis, Bytl-wv-Nsoo Follow-Up: With: Address: When: None Provider [address] [place] [address] Within 1 week Comments: Please follow-up with your primary care provider, call the office schedule an appointment to be seen in a week or sooner for continued care, you will be notified with your results, please take as Tessalon Perles as prescribed, take vzpo-jev-pngihnq ibuprofen and Tylenol as needed for fevers, body aches, or headaches. Drink plenty of water to stay hydrated, and return back to the urgent care center for any worsening symptoms, concerns, or complications. DIAGNOSIS: 1:Pharyngitis; 2:Cough Patient Understands: Yes - Patient/family/careg iver verbalizes understanding of instructions given Comment: Normal [facility] ED Patient Summaryon 023 ED Patient Summary [facility] ? Urgent Care [address] [place] [address] PATIENT DISCHARGE INSTRUCTIONS Patient Information Name: LIA DESAI Age: 21 Years Date of : 2000 [facility]: [id number] Reason For Visit: UC - Sore Throat; UC - Body Aches; SORE THROAT, COUGH, BODY ACHES Arrival Time: 06/12/2022 16:17:17 Primary Care Physician: Andreia, Tyson Attending Physician: Nelson Sharma PA-C Comment: Patient Education With: Address: When: None Provider [address] [place] [address] Within 1 week Comments: Please follow-up with your primary care provider, call the office schedule an appointment to be seen in a week or sooner for continued care, you will be notified with your results, please take as Tessalon Perles as prescribed, take kxgg-osy-pdpyraq ibuprofen and Tylenol as needed for fevers, [...] these instructions at home: Medicines ? Take azkm-lgz-xuwvwyl and prescription medicines only as told by [...] things can cause a cough. ? Take lfzb-diz-aqpienu and prescription medicines only as told by [...] provider. Document Revised: 05/13/2020 Document Reviewed: 04/13/2019 [employer] Patient Education ? 2021 [employer] Pharyngitis Pharyngitis is a sore throat [...] symptoms? Symptoms may (more content not included)... [facility] Strep Aon 06-12-2022 Strep procedure control Pass [facility] Comment on above: Performed By: #### 1 [id number] #### [facility] (DEFAULT) [address] [place] [address] Streptococcus A Negative Normal Negative [facility] Comment on above: Performed By: #### 1 [id number] #### [facility] (DEFAULT) [address] [place] [address] Urgent Care [facility] 023 Urgent Care Record [facility] ? Urgent Care [address] [place] [address] PATIENT DISCHARGE INSTRUCTIONS Patient Information Name: LIA DESAI Age: 21 Years Date of : 2000 Reason For Visit: UC - Sore Throat; UC - Body Aches; SORE THROAT, COUGH, BODY ACHES Arrival Time: 06/12/2022 16:17:17 Primary Care Physician: Provider, None Attending Physician: Nelson Sharma PA-C Comment: Visit Diagnosis: Diagnoses This Visit Cough (R05.9) Pharyngitis (J02.9) UC - Body Aches ([id number]) UC - Sore Throat ([id number]) If you received any narcotics, sedation, or [...] documents With: Address: When: None Provider [address] [place] [address] Within 1 week Comments: Please follow-up with your primary care provider, call the office schedule an appointment to be seen in a week or sooner for continued care, you will be notified with your results, please take as Tessalon Perles as prescribed, take dnah-asg-vjbtvpc ibuprofen and Tylenol as needed for fevers, body aches, or headaches. Drink plenty of water to stay hydrated, and return back to the urgent care center for any worsening symptoms, concerns, or complications. Medication Information: The exam and treatment you received today in the [facility] were for an urgent problem and are not intended as complete care. It is important for you to follow up with a doctor, nurse practitioner, or physician?s photographer assistant for ongoing care. If your symptoms [...] so we can reach you if necessary. [facility] has provided you with a complete list of medications post discharge. Please inform your contract admin/provider of your visit and for further instruction on these medications. Any specific questions regarding your chronic medications and dosages should be discussed with your primary care physician(s) and/or pharmacist. New Medications [facility] [id number], [place] [id number], [phone] benzonatate (Tessalon Perles 100 mg oral capsule) [...] these instructions at home: Medicines ? Take gpcc-vfz-sscqrbl and prescription medicines only as told by your doctor. (more content not included)... Normal [facility] US PELVIS AND TRANSVAGon US PELVIS [...] ANGELA SCOTT Date: 2022-06-04 06:57 Normal [facility] US PREG TVon 05-16-2022 US PREG [...] CHRISTIAN KATE Date: 2022-05-16 18:15 Normal [facility] HEP B SURFACE ANTIGEN SCREEN on 04-20-2022 HBsAg Screen Negative Normal Negative [facility] Comment on above: Performed By: #### H BSANS #### [facility] [address] [place] [address] Dr. Jeronimo Melgar HEPATITIS C VIRUS AB W/ REFL EX QUANTon 04-20-2022 HCV AB <0.1 Normal 0.0-0.9 [facility] Comment on above: Performed By: #### H CVPCRR #### [facility] [address] [place] [address] Dr. Jeronimo Melgar Interpretation: Comment Normal [facility] Comment on above: Result Comment: Nega tive Not infected with HCV, unless recent infection is suspected or other evidence exists to indicate HCV infection. Performed By: #### H CVPCRR #### [facility] [address] [place] [address] Dr. Jeronimo Melgar HIV 1 AND 2 WITH REFLEXon HIV Screen 4th Generation wRfx Non-Reactive Normal Non Reactive [facility] Comment on above: Result Comment: HIV Negative HIV-1/HIV-2 antibodies and HIV-1 p24 antigen were NOT detected. There is no laboratory evidence of HIV infection. Performed By: #### H IV12 #### [facility] [address] [place] [address] Dr. Jeroniom Melgar RPR QUANTon 04-20-2022 Rapid Plasma Reagin, Quant Non-Reactive Normal NonRea<1:1 [facility] Comment on above: Result Comment: Plea se Note: This test does not meet current guidelines for screening and diagnosis of syphilis. This test is intended for following treatment response in patients being treated for syphilis infection. To screen for syphilis infection, a reflex cascade that includes both RPR and a treponema-specific assay should be utilized, such as Treponema pallidum (Syphilis) Screening [place] (857324) or Rapid Plasma Reagin (RPR) Test With Reflex to Quantitative RPR and Confirmatory Treponema pallidum Antibodies (508082). Performed By: #### R PRQ #### [facility] [address] [place] [address] Dr. Jeronimo Melgar RUBELLA AB IGGon 04-20-2022 Rubella Antibodies, IgG 1.85 index Normal Immune >0.99 [facility] Comment on above: Result Comment: Non- immune <0.90 Equivocal 0.90 - 0.99 Immune >0.99 Performed By: #### B OX #### [facility] [address] [place] [address] Dr. Jeronimo Melgar BOX TEST SENT OUTon 04-19-19 SENT TO REF LAB 04/19/2022 Normal [facility] Comment on above: Performed By: #### B OX #### [facility] [address] [place] [address] Dr. Jeronimo Melgar CBC AUTO DIFFon 04-19-2022 BASO # 0.1 103/ul Normal 0.0-0.1 [facility] Comment on above: Performed By: #### B OX #### [facility] [address] [address] [address] Jeronimo Melgar Basophils/100 WBC (Bld) 0.5 % Normal 0.2-2.0 [facility] Comment on above: Performed By: #### B OX #### [facility] [address] [address] [address] Jeronimo Melgar EO # 0.1 103/ul Normal 0.0-0.7 [facility] Comment on above: Performed By: #### B OX #### [facility] [address] [address] [address] Jeronimo Melgar Eosinophils/100 WBC (Bld) 0.7 % Critically low 0.9-7.0 [facility] Comment on above: Performed By: #### B OX #### [facility] [address] [place] [address] Dr. Jeronimo Melgar Erythrocyte distribution width (RBC) [Ratio] 12.8 % Normal 11.0-15.0 [facility] Comment on above: Performed By: #### B OX #### [facility] [address] [place] [address] Dr. Jeronimo Melgar Hematocrit (Bld) [Volume fraction] 43.7 % Normal 36.0-48.0 [facility] Comment on above: Performed By: #### B OX #### [facility] [address] [place] [address] Dr. Jeronimo Melgar Hemoglobin (Bld) [Mass/Vol] 13.1 g/dL Normal 12.0-16.0 [facility] Comment on above: Performed By: #### B OX #### [facility] [address] [place] [address] Dr. Jeronimo Melgar IG # 0.02 10e3/ul Normal 0.00-0.03 [facility] Comment on above: Performed By: #### B OX #### [facility] [address] [place] [address] Dr. Jeronimo Melgar IG % 0.2 % Normal 0.0-0.5 [facility] Comment on above: Performed By: #### B OX #### [facility] [address] [place] [address] Dr. Jeronimo Melgar LYMPH # 2.6 103/ul Normal 1.2-3.8 [facility] Comment on above: Performed By: #### B OX #### [facility] [address] [place] [address] Dr. Jeronimo Melgar Lymphocytes/100 WBC (Bld) 27.3 % Normal 20.5-60.0 [facility] Comment on above: Performed By: #### B OX #### [facility] [address] [place] [address] Dr. Jeronimo Melgar MANUAL DIFF REQ NO Normal [facility] Comment on above: Performed By: #### B OX #### [facility] [address] [place] [address] Dr. Jeronimo Melgar MCH (RBC) [Entitic mass] 27.7 pg Normal 26.7-34.0 [facility] Comment on above: Performed By: #### B OX #### [facility] [address] [place] [address] Dr. Jeronimo Melgar MCHC (RBC) [Mass/Vol] 30.0 g/dL Normal 29.9-35.2 [facility] Comment on above: Performed By: #### B OX #### [facility] [address] [place] [address] Dr. Jeronimo Melgar MCV (RBC) [Entitic vol] 92.4 fL Normal 81.0-99.0 [facility] Comment on above: Performed By: #### B OX #### [facility] [address] [place] [address] Dr. Jeronimo Melgar MONO # 0.8 103/ul Normal 0.3-0.8 [facility] Comment on above: Performed By: #### B OX #### [facility] [address] [place] [address] Dr. Jeronimo Melgar Monocytes/100 WBC (Bld) 7.8 % Normal 1.7-12.0 [facility] Comment on above: Performed By: #### B OX #### [facility] [address] [address] [address] Jeronimo Melgar NEUT # 6.1 103/ul Normal 1.4-6.5 [facility] Comment on above: Performed By: #### B OX #### [facility] [address] [address] [address] Jeronimo Melgar Neutrophils/100 WBC (Bld) 63.5 % Normal 43.0-75.0 [facility] Comment on above: Performed By: #### B OX #### [facility] [address] [place] [address] Dr. Jeronimo Melgra Platelet mean volume (Bld) [Entitic vol] 10.7 fL Normal 9.5-13.5 [facility] Comment on above: Performed By: #### B OX #### [facility] [address] [place] [address] Dr. Jeronimo Melgar PLT 399 103/ul Normal 150-450 [facility] Comment on above: Performed By: #### B OX #### [facility] [address] [place] [address] Dr. Jeronimo Melgar RBC 4.73 106/ul Normal 4.20-5.40 [facility] Comment on above: Performed By: #### B OX #### [facility] [address] [place] [address] Dr. Jeronimo Melgar WBC 9.6 103/ul Normal 4.0-11.0 [facility] Comment on above: Performed By: #### B OX #### [facility] [address] [place] [address] Dr. Jeronimo Melgar CULTURE URINEon 04-19-2022 CULTURE URINE Culture Observations: LIGHT GROWTH OF MIXED GENITAL JONNY. NO POTENTIAL PATHOGENS SEEN. Normal [facility] Comment on above: Performed By: #### B OX #### [facility] [address] [place] [address] Dr. Jeronimo Melgar DRUG SCREEN RAPID (URINE)on 04-19-2022 AMP Negative Normal NEGATIVE [facility] Comment on above: Performed By: #### H IV12 #### [facility] [address] [place] [address] Dr. Jeronimo Melgar BAR Negative Normal NEGATIVE [facility] Comment on above: Performed By: #### H IV12 #### [facility] [address] [place] [address] Dr. Jeronimo Melgar BUP Negative Normal NEGATIVE [facility] Comment on above: Performed By: #### H IV12 #### [facility] [address] [place] [address] Dr. Jeronimo Melgar BZO Negative Normal NEGATIVE [facility] Comment on above: Performed By: #### H IV12 #### [facility] [address] [place] [address] Dr. Jeronimo Melgar KRISTINA Negative Normal NEGATIVE [facility] Comment on above: Performed By: #### H IV12 #### [facility] [address] [place] [address] Dr. Jeronimo Melgar CUT-OFFS SEE BELOW Normal [facility] Comment on above: Result Comment: [...] ng/mL Performed By: #### H IV12 #### [facility] [address] [place] [address] Dr. Jeronimo Melgar DRUG CUT HEADER DRUG CLASS TEST SYSTEM CUT-OFF CONCENTRATIONS ARE FOLLOWS: Normal [facility] Comment on above: Performed By: #### H IV12 #### [facility] [address] [place] [address] Dr. Jeronimo Melgar mAMP Negative Normal NEGATIVE [facility] Comment on above: Performed By: #### H IV12 #### [facility] [address] [address] [address] Jeronimo Melgar MTD Negative Normal NEGATIVE [facility] Comment on above: Performed By: #### H IV12 #### [facility] [address] [address] [address] Jeronimo Melgar OPI Negative Normal NEGATIVE [facility] Comment on above: Performed By: #### H IV12 #### [facility] [address] [address] [address] Jeronimo Melgar OXY Negative Normal NEGATIVE [facility] Comment on above: Performed By: #### H IV12 #### [facility] [address] [address] [address] Jeronimo Melgar PCP Negative Normal NEGATIVE [facility] Comment on above: Performed By: #### H IV12 #### [facility] [address] [place] [address] Dr. Jeronimo Melgar PPX Negative Normal NEGATIVE [facility] Comment on above: Performed By: #### H IV12 #### [facility] [address] [place] [address] Dr. Jeronimo Melgar TCA Negative Normal NEGATIVE [facility] Comment on above: Performed By: #### H IV12 #### [facility] [address] [place] [address] Dr. Jeronimo Melgar THC Negative Normal NEGATIVE [facility] Comment on above: Performed By: #### H IV12 #### [facility] [address] [place] [address] Dr. Jeronimo Melgar GLYCOHEMOGLOBIN A1Con 2022 ADA RECOMMENDATION SEE BELOW [facility] Comment on above: Result Comment: ADA RECOMMENDED LIMIT 4.0 - 6.0 ADA THERAPEUTIC TARGET < 7.0 ACTION SUGGESTED > 7.0 Performed By: #### A 1C #### [facility] [address] [place] [address] Dr. Jeronimo Melgar Glucose [Mass/Vol] 100 mg/dL Normal [facility] Comment on above: Performed By: #### A 1C #### [facility] [address] [place] [address] Dr. Jeronimo Melgar HbA1c (Bld) [Mass fraction] 5.1 % Normal 4.5-6.2 [facility] Comment on above: Performed By: #### A 1C #### [facility] [address] [place] [address] Dr. Jeronimo Melgar TYPE AND SCREENon 04-19-2022 TYPE AND SCREEN Negative Normal [facility] Comment on above: Performed By: #### B OX #### [facility] [address] [place] [address] Dr. Jeronimo Melgar CBC AUTO DIFFon 04-02-2022 BASO # 0.0 103/ul Normal 0.0-0.1 [facility] Comment on above: Performed By: #### C BC #### [facility] [address] [place] [address] Dr. Jeronimo Melgar Basophils/100 WBC (Bld) 0.3 % Normal 0.2-2.0 [facility] Comment on above: Performed By: #### C BC #### [facility] [address] [place] [address] Dr. Jeronimo Melgar EO # 0.0 103/ul Normal 0.0-0.7 [facility] Comment on above: Performed By: #### C BC #### [facility] [address] [place] [address] Dr. Jeronimo Melgar Eosinophils/100 WBC (Bld) 0.2 % Critically low 0.9-7.0 [facility] Comment on above: Performed By: #### C BC #### [facility] [address] [place] [address] Dr. Jeronimo Melgar Erythrocyte distribution width (RBC) [Ratio] 12.9 % Normal 11.0-15.0 [facility] Comment on above: Performed By: #### C BC #### [facility] [address] [place] [address] Dr. Jeronimo Melgar Hematocrit (Bld) [Volume fraction] 37.5 % Normal 36.0-48.0 [facility] Comment on above: Performed By: #### C BC #### [facility] [address] [place] [address] Dr. Jeronimo Melgar Hemoglobin (Bld) [Mass/Vol] 12.4 g/dL Normal 12.0-16.0 [facility] Comment on above: Performed By: #### C BC #### [facility] [address] [place] [address] Dr. Jeronimo Melgar IG # 0.05 10e3/ul Critically high 0.00-0.03 [facility] Comment on above: Performed By: #### C BC #### [facility] [address] [place] [address] Dr. Jeronimo Melgar IG % 0.3 % Normal 0.0-0.5 [facility] Comment on above: Performed By: #### C BC #### [facility] [address] [place] [address] Dr. Jeronimo Melgar LYMPH # 2.0 103/ul Normal 1.2-3.8 [facility] Comment on above: Performed By: #### C BC #### [facility] [address] [place] [address] Dr. Jeronimo Melgar Lymphocytes/100 WBC (Bld) 14.1 % Critically low 20.5-60.0 [facility] Comment on above: Performed By: #### C BC #### [facility] [address] [place] [address] Dr. Jeronimo Melgar MANUAL DIFF REQ NO Normal [facility] Comment on above: Performed By: #### C BC #### [facility] [address] [place] [address] Dr. Jeronimo Melgar MCH (RBC) [Entitic mass] 27.9 pg Normal 26.7-34.0 [facility] Comment on above: Performed By: #### C BC #### [facility] [address] [place] [address] Dr. Jeronimo Melgar MCHC (RBC) [Mass/Vol] 33.1 g/dL Normal 29.9-35.2 [facility] Comment on above: Performed By: #### C BC #### [facility] [address] [place] [address] Dr. Jeronimo Melgar MCV (RBC) [Entitic vol] 84.3 fL Normal 81.0-99.0 [facility] Comment on above: Performed By: #### C BC #### [facility] [address] [place] [address] Dr. Jeronimo Melgar MONO # 0.6 103/ul Normal 0.3-0.8 [facility] Comment on above: Performed By: #### C BC #### [facility] [address] [place] [address] Dr. Jeronimo Melgar Monocytes/100 WBC (Bld) 4.0 % Normal 1.7-12.0 [facility] Comment on above: Performed By: #### C BC #### [facility] [address] [place] [address] Dr. Jeronimo Melgar NEUT # 11.7 103/ul Critically high 1.4-6.5 [facility] Comment on above: Performed By: #### C BC #### [facility] [address] [place] [address] Dr. Jeronimo Melgar Neutrophils/100 WBC (Bld) 81.1 % Critically high 43.0-75.0 [facility] Comment on above: Performed By: #### C BC #### [facility] [address] [place] [address] Dr. Jeronimo Melgar Platelet mean volume (Bld) [Entitic vol] 10.2 fL Normal 9.5-13.5 [facility] Comment on above: Performed By: #### C BC #### [facility] [address] [place] [address] Dr. Jeronimo Melgar PLT 420 103/ul Normal 150-450 [facility] Comment on above: Performed By: #### C BC #### [facility] [address] [place] [address] Dr. Jeronimo Melgar RBC 4.45 106/ul Normal 4.20-5.40 [facility] Comment on above: Performed By: #### C BC #### [facility] [address] [place] [address] Dr. Jeronimo Melgar WBC 14.4 103/ul Critically high 4.0-11.0 [facility] Comment on above: Performed By: #### C BC #### [facility] [address] [address] [address] Jeronimo CARMICHAEL URINE PROFILEon 2 Bilirubin Ql (U) Negative Normal NEGATIVE [facility] Comment on above: Performed By: #### B OX #### [facility] [address] [place] [address] Dr. Jeronimo Melgar Clarity (U) CLEAR Normal CLEAR [facility] Comment on above: Performed By: #### B OX #### [facility] [address] [address] [address] Jeronimo Melgar Color (U) YELLOW Normal YELLOW [facility] Comment on above: Performed By: #### B OX #### [facility] [address] [place] [address] Dr. Jeronimo FLORES A micrscopic examination will be performed if indicated. Normal [facility] Comment on above: Performed By: #### B OX #### [facility] [address] [place] [address] Dr. Jeronimo Melgar Glucose Ql (U) Negative Normal NEGATIVE [facility] Comment on above: Performed By: #### B OX #### [facility] [address] [address] [address] Jeronimo Melgar Hemoglobin Ql (U) Negative Normal NEGATIVE [facility] Comment on above: Performed By: #### B OX #### [facility] [address] [place] [address] Dr. Jeronimo Melgar Ketones Ql (U) >=80 Abnormal NEGATIVE [facility] Comment on above: Performed By: #### B OX #### [facility] [address] [address] [address] Jeronimo Melgar LEUKOCYTES Negative Normal NEGATIVE [facility] Comment on above: Performed By: #### B OX #### [facility] [address] [place] [address] Dr. Jeronimo Melgar Nitrite Ql (U) Negative Normal NEGATIVE [facility] Comment on above: Performed By: #### B OX #### [facility] [address] [place] [address] Dr. Jeronimo Melgar pH (U) 7.0 [pH] Normal 5-9 [facility] Comment on above: Performed By: #### B OX #### [facility] [address] [place] [address] Dr. Jeronimo Melgar SPEC GRAVITY 1.020 Normal 1.005-<=1.025 [facility] Comment on above: Performed By: #### B OX #### [facility] [address] [place] [address] Dr. Jeronimo Melgar UA PROTEIN TRACE Normal NEGATIVE/ TRACE [facility] Comment on above: Performed By: #### B OX #### [facility] [address] [place] [address] Dr. Jeronimo Melgra UR MICRO IND NOT INDICATED Normal [facility] Comment on above: Performed By: #### B OX #### [facility] [address] [place] [address] Dr. Jeronimo Melgar Urobilinogen Qn (U) 1.0 {Pepito'U}/dL Normal 0.2 - 1. 0 [facility] Comment on above: Performed By: #### B OX #### [facility] [address] [place] [address] Dr. Jeronimo Melgar PROF CHEM 8 (BAS METB)on Anion gap [Moles/Vol] 12.7 mmol/L Normal [facility] Comment on above: Performed By: #### B MP #### [facility] [address] [place] [address] Dr. Jeronimo Melgar Calcium [Mass/Vol] 9.1 mg/dL Normal 8.5-10.1 [facility] Comment on above: Performed By: #### B MP #### [facility] [address] [place] [address] Dr. Jeronimo Melgar Chloride [Moles/Vol] 103 mmol/L Normal 98-107 [facility] Comment on above: Performed By: #### B MP #### [facility] [address] [place] [address] Dr. Jeronimo Melgar CO2 [Moles/Vol] 23.9 mmol/L Normal 21.0-32.0 [facility] Comment on above: Performed By: #### B MP #### [facility] [address] [address] [address] Jeronimo Melgar Creatinine [Mass/Vol] 0.78 mg/dL Normal 0.55-1.02 [facility] Comment on above: Performed By: #### B MP #### [facility] [address] [address] [address] Jeronimo Melgar EGFR-AF NEPALESE >60 Normal >=60 [facility] Comment on above: Performed By: #### B MP #### [facility] [address] [address] [address] Jeronimo Melgar EGFR-NON AF NEPALESE >60 Normal >=60 [facility] Comment on above: Performed By: #### B MP #### [facility] [address] [address] [address] Jeronimo Melgar Glucose [Mass/Vol] 155 mg/dL Critically high 74-106 [facility] Comment on above: Performed By: #### B MP #### [facility] [address] [address] [address] Jeronimo Melgar Potassium [Moles/Vol] 3.6 mmol/L Normal 3.5-5.1 [facility] Comment on above: Performed By: #### B MP #### [facility] [address] [address] [address] Jeronimo Melgar Sodium [Moles/Vol] 136 mmol/L Normal 136-145 [facility] Comment on above: Performed By: #### B MP #### [facility] [address] [address] [address] Jeronimo Melgar Urea nitrogen [Mass/Vol] 7.0 mg/dL Normal 7.0-18.0 [facility] Comment on above: Performed By: #### B MP #### [facility] [address] [place] [address] Dr. Jeronimo Melgar Urea nitrogen/Creatinine [Mass ratio] 9.0 mg/mg Normal [facility] Comment on above: Performed By: #### B MP #### [facility] [address] [address] [address] Jeronimo Melgar US PREG TVon 03-28-2022 [...] ANGELA SCOTT Date: 2022-03-28 16:32 Normal [facility] US PELVIS AND TRANSVAGon US PELVIS [...] CHRISTIAN KATE Date: 2021-10-17 16:35 Normal [facility] CHLAMYDIA/GONOCOCCUS MILY (SW AB/URINE/PAPon 10-14-2021 Chlamydia trachomatis, MILY Positive Abnormal Negative [facility] Comment on above: Result Comment: . Performed By: #### C T/NGNA #### [facility] [address] [place], [place] [address] Dr. Jeronimo Melgar Neisseria gonorrhoeae, MILY Negative Normal Negative [facility] Comment on above: Performed By: #### C T/NGNA #### [facility] [address] [address] [address] Jeronimo Melgar VAGINITIS/VAGINOSIS DNA PROB Obed 10-13-2021 Lesa species Negative Normal Negative [facility] Comment on above: Performed By: #### V AGINT #### [facility] [address] [address] [address] Jeronimo Melgar Gardnerella vaginalis Negative Normal Negative [facility] Comment on above: Performed By: #### V AGINT #### [facility] [address] [address] [address] Jeronimo Melgar Trichomonas vaginalis Negative Normal Negative [facility] Comment on above: Performed By: #### V AGINT #### [facility] [address] [address] [address] Jeronimo Melgar XR foot LT min 3V*on 022 XR foot LT min 3V* [facility] [place] [address] [place] [address] XRay Report Signed Patient: Lia Desai MR#: [id number] : 2000 Acct:[id number] Age/Sex: 20 / F ADM Date: 07/18/21 Loc: ER Room: Type: [facility] ER Attending Dr: Ordering Provider: Oneil Ricci APRN Date of Service: 07/18/21 XR/XR foot LT min 3V*: Extremity Injury, Lower ([id number]) XR/XR ankle LT min 3V*: Extremity Injury, [...] Brewer Jr., M.D.07/18/2021 6:15 PM Dictation Location: RADIO--06 Transcribed By: CYNDEE 07/18/211814 Dictated By: Bijan Brewer Jr, MD 07/18/211812 Signed By: 07/18/211814 [facility] XR knee RT 4V*on 05-15-2021 XR knee RT 4V* [facility] [place] [address] XRay Report Signed Patient: Lia Desai MR#: [id number] : 2000 Acct:[id number] Age/Sex: 20 / F ADM Date: 05/15/21 Loc: ER Room: Type: [facility] ER Attending Dr: Ordering Provider: Yovani Valle [...] Ana Juan M.D.05/15/2021 8:11 PM Dictation Location: [facility]04 Transcribed By: CYNDEE 05/15/212010 Dictated By: Ana Juan II, MD 05/15/212008 Signed By: 05/15/212010 [facility] Vital Signs Date Time Vital Sign Value Performing Clinician Francisco maria 07-18-2021 16:56-0400 Body height 167.64 cm [facility] 07-18-2021 16:56-0400 Body mass index (BMI) [Percentile] Per age and sex 98.9 % [facility] 07-18-2021 16:56-0400 Body mass index (BMI) [Ratio] 44.3 kg/m2 [facility] 07-18-2021 16:56-0400 Body temperature 98.3 [degF] [facility] 07-18-2021 16:56-0400 Body weight 124.6 kg [facility] 07-18-2021 16:56-0400 Diastolic blood pressure 108 mm[Hg] [facility] 07-18-2021 16:56-0400 Heart rate 80 /min [facility] 07-18-2021 16:56-0400 Respiratory rate 18 /min [facility] 07-18-2021 16:56-0400 Systolic blood pressure 162 mm[Hg] [facility] 05-15-2021 19:47-0500 Body height 167.64 cm [facility] 05-15-2021 19:47-0500 Body mass index (BMI) [Percentile] Per age and sex 98.9 % [facility] 05-15-2021 19:47-0500 Body mass index (BMI) [Ratio] 43.7 kg/m2 [facility] 05-15-2021 19:47-0500 Body temperature 98.8 [degF] [facility] 05-15-2021 19:47-0500 Body weight 122.95 kg [facility] 05-15-2021 19:47-0500 Diastolic blood pressure 65 mm[Hg] [facility] 05-15-2021 19:47-0500 Heart rate 75 /min [facility] 05-15-2021 19:47-0500 Respiratory rate 16 /min [facility] 05-15-2021 19:47-0500 SaO2% (BldA) [Mass fraction] 100 % [facility] 05-15-2021 19:47-0500 Systolic blood pressure 144 mm[Hg] [facility] Encounters Encounter Date Encounter Type Care Provider Facility Start: 10-01-2023 End: 10-01-2023 ambulatory ROBERT JANES Not Available Start: 09-17-2023 End: 09-17-2023 ambulatory ROBERT JANES Not Available Start: 09-04-2023 End: 09-04-2023 ambulatory ZEKE RAMÍREZ [facility] Start: 09-04-2023 End: 09-04-2023 Emergency department patient visit [facility] Start: 08-26-2023 End: 08-26-2023 ambulatory ROBERT JANES Not Available Start: 07-30-2023 End: 07-30-2023 ambulatory RAUL HAMMOND [facility] Start: 07-29-2023 End: 07-29-2023 ambulatory ROBERT JANES Not Available Start: 07-11-2023 End: 07-11-2023 Emergency department patient visit [facility] Start: 07-05-2023 End: 07-05-2023 Emergency department patient visit [facility] Start: 07-01-2023 End: 07-01-2023 ambulatory DAPHNIE CR Not Available Start: 06-18-2023 End: 06-18-2023 ambulatory ROBERT JANES Not Available Start: 06-03-2023 End: 06-03-2023 ambulatory ROBERT JANES Not Available Start: 05-26-2023 End: 05-26-2023 Emergency department patient visit [facility] Facility:[facility] Start: 05-17-2023 Clinisync Result Encounter Robert Janes DO Work Phone: [facility] External [facility] Unsolicited Start: 05-17-2023 Clinisync Result Encounter Robert Janes DO Work Phone: [facility] External Department Unsolicited Start: 05-15-2023 End: 05-15-2023 Emergency department patient visit Mamie Moore Facility:[facility] Start: 05-14-2023 Chart abstracting Robert Janes DO Work Phone: [facility] Start: 05-07-2023 Documentation procedure Leah Hernandez RN [facility] Certified Nurse Social Work Instructor - [place] Start: 05-02-2023 End: 05-02-2023 ambulatory ROBERT JANES Not Available Start: 04-19-2023 Telephone encounter Leah Hernandez RN [facility] Certified Nurse Social Work Instructor - [place] Start: 04-17-2023 Telephone encounter Leah Hernandez RN [facility] Certified Nurse Social Work Instructor - [place] Start: 04-15-2023 End: 04-15-2023 Emergency department patient visit Yassine Maldonado Facility:[facility] Start: 04-12-2023 End: 04-12-2023 ambulatory Oneil MILLS Facility:[facility] Start: 04-05-2023 Orders Only Leah Hernandez RN [facility] Certified Nurse Social Work Instructor - [place] Comment on above: Nausea and vomiting during (Primary Dx) Start: 03-01-2023 End: 03-01-2023 Emergency department patient visit Tom Smith Facility:[facility] Start: 02-26-2023 End: 02-26-2023 ambulatory Errol JUSTICE Facility:[facility] Start: 02-14-2023 End: 02-14-2023 ambulatory DORA MILLS Facility:[facility] Start: 11-15-2022 End: 11-15-2022 Emergency department patient visit None Provider Facility:[facility] Start: 08-25-2022 End: 08-26-2022 ambulatory Alaina Matta CNM Facility:[facility] Start: 08-11-2022 End: 08-11-2022 Emergency department patient visit Adamaris Jaeger PA-C Facility:[facility] Start: 08-08-2022 End: 08-09-[address] BALDOMERO ELLER . Facility: Start: 06-12-2022 End: 06-12-2022 ambulatory None Provider Facility:[facility] Start: 06-02-2022 End: 06-03-[address] BALDOMERO ELLER . Facility:[facility] Start: 05-18-2022 Encounter for other preprocedural examination DR BALDOMERO ELLER . [facility] Start: 05-17-2022 End: 05-17-[address] BALDOMERO ELLER . Facility:[facility] Start: 05-16-2022 End: 05-17-[address] BALDOMERO ELLER . Facility:[facility] Start: 05-16-2022 End: 05-17-2022 Encounter for other preprocedural examination DR BALDOMERO ELLER . Facility:[facility] Start: 05-16-2022 End: 05-17-[address] BLADOMERO ELLER . Facility:[facility] Start: 04-19-2022 End: 04-20-[address] BALDOMERO ELLER . Facility:[facility] Start: 04-02-2022 End: 04-03-[address] ANA LEDESMA Facility:[facility] Start: 03-29-2022 ambulatory [facility] Facility:[facility] Start: 03-28-2022 End: 03-29-[address] BALDOMERO ELLER . Facility:[facility] Start: 10-17-2021 End: 10-18-[address] BALDOMERO ELLER . Facility:[facility] Start: 10-12-2021 End: 10-12-[address] BALDOMERO ELLER . Facility:[facility] Start: 07-18-2021 End: 07-18-2021 Emergency department patient visit [facility] Start: 05-15-2021 End: 05-15-2021 Emergency department patient visit [facility] Procedures Date Procedure Procedure Detail Performing Clinician Start: 05-17-2023 ALL CBC WITH AUTO DIFF Robert Marrero DO Work Phone: Start: 05-15-2021 X-ray of right knee Plan of Treatment Date Care Activity Detail Author Start: 05-15-2028 DTaP,Tdap and Td Vaccines (2 - Td or Tdap) DTaP,Tdap and Td Vaccines (2 - Td or Tdap) [facility] Start: 03-05-2024 Adult BMI Screening Adult BMI Screen ing [facility] Start: 03-05-2024 Tobacco Screening Tobacco Screening [facility] Start: 09-26-2023 Screening for Chlamy driss trachomatis Chlamydia Screening [facility] Start: 06-03-2023 End: 06-03-2023 Patient encounter procedure 06/03/2023 2:10 PM EST Routine [facility] [address] [place] [id number] Robert Marrero, DO [address] [place] [address] [facility] Start: 04-17-2023 End: 04-17-2023 ambulatory 04/17/2023 8:30 AM EST Initial [facility] Certified Nurse Social Work Instructor - [place] [address] [id number] [facility] Certified Nurse Social Work Instructor - [place] Start: 12-07-2022 Influenza vaccination Influenza Vacc ine [facility] Start: 2022 Screening for malign ant neoplasm of cervix Pap Smear [facility] Start: 07-18-2021 X-ray of left ankle XR ankle LT min 3V* [facility] Start: 07-18-2021 X-ray of left foot XR foot LT min 3V * [facility] Start: 10-08-2019 Adult BMI Follow Up Plan Adult BMI Follow Up Plan [facility] Start: 2013 Depression Screening Depression Scre ening [facility] Patient Education [facility] Work Phone: Patient referral [facility] Work Phone: Payers Date Payer Category Payer Medicaid [id number] 2001 Unknown [id number] 2.16.84 0.1.455047.3.579.2.593 2001 Unknown [id number] 2.16.84 0.1.414575.3.579.2.593 2001 Unknown [id number] 2.16.84 0.1.961404.3.579.2.593 2001 Unknown [id number] 2.16.84 0.1.343286.3.579.2.593 2001 Unknown [id number] 2.16.84 0.1.052329.3.579.2.593 2001 Unknown [id number] 2.16.84 0.1.336815.3.579.2.593 2001 Unknown [id number] 2.16.84 0.1.269229.3.579.2.593 2001 Unknown [id number] 2.16.84 0.1.328922.3.579.2.593 2001 Unknown [id number] 2.16.84 0.1.120416.3.579.2.593 2001 Unknown [id number] 2.16.84 0.1.685730.3.579.2.593 2001 Unknown [id number] 2.16.84 0.1.150567.3.579.2.593 2001 Unknown [id number] 2.16.8 40.1.799293.3.579.2.718 2001 Unknown [id number] 2.16.8 40.1.801466.3.579.2.718 2001 Unknown [id number] 2.16.8 40.1.083339.3.579.2.718 2001 Unknown [id number] 2.16.8 40.1.015342.3.579.2.718 2001 Unknown [id number] 2.16.8 40.1.451122.3.579.2.718 2001 Unknown [id number] 2.16.8 40.1.577976.3.579.2.718 2001 Unknown [id number] 2.16.8 40.1.362319.3.579.2.718 2001 Unknown [id number] 2.16.8 40.1.404937.3.579.2.718 2001 Unknown [id number] 2.16.8 40.1.138282.3.579.2.718 2001 Unknown [id number] 2.16.8 40.1.956870.3.579.2.718 2001 Unknown [id number] 2.16.8 40.1.155427.3.579.2.718 2001 Unknown [id number] 2.16.8 40.1.142602.3.579.2.1286 2001 Unknown [id number] 2.16.8 40.1.610430.3.579.2.1286 2001 Unknown [id number] 2.16.8 40.1.916814.3.579.2.1286 2001 Unknown [id number] 2.16.8 40.1.485154.3.579.2.1286 2001 Unknown [id number] 2.16.8 40.1.251971.3.579.2.1286 2001 Unknown [id number] 2.16.84 0.1.162641.3.579.2.1259 2001 Unknown [id number] 2.16.84 0.1.810033.3.579.2.9 2001 Unknown [id number] 2.16.84 0.1.993911.3.579.2.1259 2001 Unknown [id number] 2.16.84 0.1.138617.3.579.2.1259 2001 Unknown [id number] 2.16.84 0.1.757280.3.579.2.9 2001 Unknown [id number] 2.16.84 0.1.317030.3.579.2.1259 2001 Unknown [id number] 2.16.84 0.1.909375.3.579.2.1259 2001 Unknown [id number] 2.16.84 0.1.180285.3.579.2.1259 1959 Unknown [id number] Self-pay Self Pay [id number] Social History Date Type Detail Facility Start: 07-18-2021 End: 05-14-2023 Tobacco smoking status NHIS Never smoked tobacco (finding) [facility] [place] Start: 2000 Sex Assigned At Female [facility] History of tobacco use Passive smoker [facility] Start: 08-01-2022 Tobacco use and exposure Smokeless tobacco non-user [facility] Start: 03-05-2023 Alcohol intake Ex-drinker (finding) [facility] Start: 03-05-2023 End: 05-14-2023 History of Social function [facility] Start: 03-05-2023 End: 05-14-2023 Tobacco use panel [facility] Housing Instability Unknown [facility] Start: 08-14-2022 Alcohol Comment social [facility] Start: 2000 Sex Assigned At Not on file [facility] Start: 05-14-2023 Alcohol intake Lifetime non-drinker (finding) [facility] Start: 03-20-2023 [facility] Start: 05-01-2023 Gender identity Identifies as female gender (finding) [facility] Start: 05-01-2023 Sexual orientation Heterosexual (finding) [facility] Clinical Notes 06-12-2022 to 05-26-2023 Leah [...] Keep all follow-up visits. Medicines ? Take gxsn-tqw-flqgrnt and prescription medicines only as told by [...] be an em (more content not included)... [facility] 05-15-2023 Note Education Materials Obstetrics and [...] uri tea. ? Taking prescription medicine or rlbh-apq-mdsflll medicine as told by your health care [...] or sour. These include lemonade, uri prabhakar, lemon?yavapai-apache soda, ice water, and sparkling water. Things [...] food. The s (more content not included)... [facility] 05-07-2023 History of Presen t illness Narrative Letter sent to patient via mal and also to her My Chart regarding her missed OB intake appointment and also her MICHAEL for her Chlamydia. documented in this encounter [facility] 04-19-2023 Miscellaneous Notes Called patient to reschedule her IOB intake visit. No answer. Left message to call office to reschedule her appointment. documented in this encounter [facility] 04-19-2023 Telephone encounter Note Called patient to reschedule her IOB intake visit. No answer. Left message to call office to reschedule her appointment. [facility] 04-17-2023 Miscellaneous Notes Patient called for her OB intake per phone. No answer. Left message to call office. documented in this encounter [facility] 04-17-2023 Telephone encounter Note Patient called for her OB intake per phone. No answer. Left message to call office. [facility] 04-15-2023 Note Education Materials Gastroenterology Nausea and [...] ? Low-calorie sports drinks. ? Eat bland, ijqx-nb-kgemtv foods in small amounts as you are able, such as: ? Bananas. ? Applesauce. ? Rice. ? Low-fat (lean) meats. ? Choteau. ? Crackers. ? Avoid drinking fluids that have a lot of sugar or caffeine in them. This includes energy drinks, sports drinks, and soda. ? Avoid alcohol. ? Avoid spicy or fatty foods. General instructions ? Take nxjp-otc-usebxvk and prescription medicines only as told by your doctor. ? Drink enough fluid to keep your pee (urine) pale yellow. ? Wash your hands often with soap and water for at least 20 seconds. If you cannot use soap and water, use hand statement clerks supervisor. ? Make sure that everyone in your [...] doctor about eating and drinking. ? Take qslt-ewc-sydsbcd and prescription medicines only as told by your doctor. ? Contact your doctor if your symptoms get worse or you have new symptoms. ? Keep all follow-up visits. This information is not intended to replace advice given to you by your health care provider. Make sure you discuss any questions you have with your health care provider. Document Revised: 09/29/2021 Document Reviewed: 09/29/2021 [employer] Patient Education ? 2022 EXO5. [facility] 04-12-2023 Note Patient Education Ma terials [...] these instructions at home: Medicines ? Take rgvv-dam-ddbuywp and prescription medicines only as told by your health care provider. Do not use any prescription, habo-qoe-zbvbqpy, or herbal medicines for morning sickness without [...] provider. Document Revised: 11/07/2020 Document Reviewed: 10/17/2020 [employer] Patient Education ? 2022 EXO5. [facility] 03-01-2023 Note Education Materials Pulmonary Medicine [...] Follow these instructions at home: ? Take syrb-gsr-awudlhb and prescription medicines only as told by [...] and water are not available, use hand statement clerks supervisor. ? Avoid contact with people who have [...] is easier to cough up. ? Take pccb-mik-pjjxpcf an (more content not included)... [facility] 02-26-2023 Note Patient Education Ma terials [...] to help relieve symptoms, such as: ? Cdzi-pgv-silqoct cold medicines. ? Cough suppressants. Coughing is [...] other clear broths. General instructions ? Take uhrw-ycg-iisoejx and prescription medicines only as told by [...] and water are not available, use hand statement clerks supervisor. ? Avoid touching your mouth, face, eyes, [...] These symptoms may (more content not included)... [facility] 02-14-2023 Note Patient Education Ma terials [...] elastic wrap to support your hand. ? Ukpe-ung-mcfttpy medicines to control pain. Follow these instructions [...] or lying down. General instructions ? Take bsjr-tdj-lkcwulv and prescription medicines only as told by [...] provider. Document Revised: 07/13/2021 Document Reviewed: 07/13/2021 [employer] Patient Education ? 2022 [employer] How to Use Cold Therapy Cold [...] on your pr (more content not included)... [facility] 11-15-2022 Note Education Materials Orthopedics Sciatica [...] by your health care provider. Stretching and wmzea-ji-qwdsse exercises These exercises warm up your muscles [...] standing, keep y (more content not included)... [facility] 08-11-2022 Note Education Materials Obstetrics and [...] these instructions at home: Medicines ? Take pdio-wov-vhhsolf and prescription medicines only as told by [...] Where to find more information ? [employer]: acog.org ? [place] Department of Health and Human Services Office of Women's Health: hrsa.gov/xqwmxq-ugscif-freblv Contact a doctor if: ? You have [...] ? Text the Crisis Text Line at 392679. Summary ? A miscarriage is the loss [...] provider. Document Revised: 09/23/2020 Document Reviewed: 09/23/2020 [employer] Patient Education ? 2021 EXO5. [facility] 06-12-2022 Note Patient Education Ma terials [...] these instructions at home: Medicines ? Take csqv-enh-bzhqsvr and prescription medicines only as told by [...] things can cause a cough. ? Take hdvf-wza-tdlusjp and prescription medicines only as told by [...] provider. Document Revised: 05/13/2020 Document Reviewed: 04/13/2019 [employer] Patient Education ? 2021 EXO5. Infectious Disease Pharyngitis Pharyngitis is a sore [...] these instructions at home: Medicines ? Take iczh-qyq-mgmznbw and prescription medicines only as told by your doctor. ? If you were prescribed an antibiotic medicine, take it as told by your doctor. Do not stop taking the antibiotic even if you start to feel better. ? Use throat loze (more content not included)... [facility] Evaluation note No assessment inform ation available [facility] Work Phone: Evaluation note Diagnosis Nausea and vomiting during - Primary [facility] filed[facility] Chief Complaint and Reason for Visit [...] Dates NON STAFF Primary Care Provider Active Electrician Second Relationship Specialty [facility] [address] [place] PCP - General Family Medicine 08/11/18 Electrician Second Relationship Specialty Start Date End Date [facility] [address] [place] PCP - General Family Medicine 08/11/18 Electrician Second Relationship Specialty Start Date End Date [facility] [address] [place] PCP - General Family Medicine 08/11/18 Goals (unrecognized section and content) Goals may be documented in a n alternate sectionNot on filedocumented as of this encounterNot on filedocumented as of this encounterNot on filedocumented as of this encounterNot on filedocumented as of this encounter INFORMATION SOURCE (unrecogn ized section and content) DATE CREATED AUTHOR 07/27/2021 [facility] DATE CREATED AUTHOR AUTHOR'S ORGANIZ ATION 08/16/2022 [facility] DATE CREATED AUTHOR AUTHOR'S ORGANIZ ATION 06/08/2023 [facility] DATE CREATED AUTHOR AUTHOR'S ORGANIZ ATION 09/05/2023 [facility] DATE CREATED AUTHOR AUTHOR'S ORGANIZ ATION 10/02/2023 [facility] FOR RECORDS PERTAINING TO PATIENTS WHO ARE [...] BE BASED ON THE PRIMARY CLINICAL RECORDS. [facility] provides no warranty or guarantee of the accuracy or completeness of information in this document.
[2023-10-04 13:24] LABS: Bacteria Urine TRACE #/HPF (NONE SEEN); Cast Seen? NONE SEEN #/LPF (NONE SEEN); Crystals Seen? None Seen #/HPF (None Seen); Mucus Urine TRACE (NONE SEEN); RBC Urine 0-2 #/HPF (0-2); Squamous Epithelial Cell Urine FEW #/LPF (NONE/RARE); Urine Culture Indicated NO; WBC Urine NONE SEEN #/HPF (NONE SEEN)
--- NOTE | 2023-10-04 13:29 | US_ITS ---
The [address] [address] Patient Name: TEE DESAI MRN: [id number] date: 2000 Sex: F Assigned Patient Location: ER Current Patient Location: ER Accession/Order Number: [id number] Exam Date: 10/04/2023 13:30 Report Date: 10/04/2023 14:08 At the request of: MEAGAN FAITH Procedure: US OB cervical length EXAMINATION: US OB limited, US OB cervical length HISTORY: Vaginal bleeding COMPARISON: No relevant comparison available. FINDINGS: position: Cephalic presentation, longitudinal lie Amniotic fluid: 8.9 cm Largest fluid pocket: 3.8 cm Placenta: Anterior, grade 0. No intraplacental or retroplacental echogenic abnormality Heart rate: 141 beats minute Cervix: 3.9 cm. Mild dilation of the endocervical canal contains fluid up to 2.6 mm Incidentally noted is a nuchal cord Clinical age: 30 weeks 2 days Clinical MONIQUE: 12/11/2023 US/US OB cervical length IMPRESSION: No evidence of placental abruption The cervix measures 3.6 cm in length. Fluid in the endocervical canal measuring up to 2.6 mm Nuchal cord Electronically authenticated by: CHRISTIAN KATE Date: 10/04/2023 14:08
--- NOTE | 2023-10-04 14:23 | ED.GENADUL1 ---
HPI HPI - General Adult General Chief complaint: Urogenital-Female Stated complaint: 30 WEEKS / SPOTTING Time Seen by Provider: 10/04/23 12:57 Mode of arrival: walk-in History of Present Illness HPI narrative: Patient is a 22-year-old female G4, Who presents to the emergency department for vaginal spotting, low back discomfort that began today. She is 30 weeks . She has had no fevers or upper respiratory symptoms. No abdominal pain. No urinary symptoms. No fluid leakage. Patient was sent to the emergency department for Evaluation as the labor and delivery department is overflowed and unable to accommodate her on that floor. She was sent to the ER for ultrasound and nonstress testing. Related Data Previous Rx's ?Medication ?Instructions ?Recorded cephalexin 500 mg capsule 500 mg PO Q8H 5 days #15 caps 07/15/23 Allergies Allergy/AdvReac Type Severity Reaction Status Date / Time adhesive tape Allergy Severe Verified 07/15/23 21:13 azithromycin [From Zithromax] Allergy Severe Verified 07/15/23 21:13 metronidazole Allergy Mild Verified 07/15/23 21:15 Opioid HPI Opioid Management Most Recent Opioid Data: Last Pain Scale 6 10/04/23 14:38 Last MAR Pain Assessment 10/04/23 14:38 Review of Systems ROS Constitutional Denies: fever or chills Ears, nose, mouth, and throat Denies: throat pain or nasal congestion Respiratory Denies: shortness of breath Gastrointestinal Denies: abdominal pain, nausea or vomiting Musculoskeletal Reports: back pain; Denies: neck pain Integumentary/Breast Denies: rash Neurological Denies: headache Hematologic/Lymphatic Denies: easy bruising or easy bleeding Exam Constitutional Vital Signs, click to edit/add: Last Vital Signs Temp 98.0 F 10/04/23 12:35 Pulse 94 H 10/04/23 12:35 Resp 16 10/04/23 12:35 BP 138/86 10/04/23 12:35 Pulse Ox 98 10/04/23 12:35 O2 Del Method Room Air 10/04/23 12:35 Course Vital Signs Vital signs: Vital Signs Temperature 98.0 F 10/04/23 12:35 Pulse Rate 94 H 10/04/23 12:35 Respiratory Rate 16 10/04/23 12:35 Blood Pressure 138/86 10/04/23 12:35 Pulse Oximetry 98 06/28/24 12:35 Oxygen Delivery Method Room Air 10/04/23 12:35 Temperature 98.0 F 10/04/23 12:35 Pulse Rate 94 H 10/04/23 12:35 Respiratory Rate 16 10/04/23 12:35 Blood Pressure 138/86 10/04/23 12:35 Pulse Oximetry 98 10/04/23 12:35 Oxygen Delivery Method Room Air 10/04/23 12:35 Medical Decision Making MDM Narrative Medical decision making narrative: Patient with negative urine specimen, a positive blood type and ultrasound showing 3.9 cm cervical length, no evidence of placental abruption. Discussed with on-call OB, patient needs nonstress testing and was excepted to the labor and delivery department for observation for this. She is stable at time of admission. SUPERVISED APC VISIT, PHYSICIAN ATTESTATION: Based on the medical record the care appears appropriate. ? Medical Records Medical records reviewed: Yes I reviewed the patient's medical records Lab Data Lab results reviewed: Yes I reviewed the patient's lab results Labs: Lab Results 10/04/23 Range/Units 12:46 Urine Color Lt. yellow (YELLOW) Urine Clarity Clear (CLEAR) Urine pH 7.5 (5.0-9.0) Ur Specific [place] 1.020 (1.005-1.025) Urine Protein Negative (NEG/TRACE) mg/dL Urine Glucose (UA) Negative (NEGATIVE) mg/dL Urine Ketones Negative (NEGATIVE) mg/dL Urine Occult Blood Negative (NEGATIVE) Urine Nitrite Negative (NEGATIVE) Urine Bilirubin Negative (NEGATIVE) Urine Urobilinogen 1.0 (0.2-1.0) EU/dL Ur Leukocyte Esterase Negative (NEGATIVE) Urine RBC 0-2 (0-2) #/HPF Urine WBC None seen (NONE SEEN) #/HPF Ur Squamous Epith Cells Few A (NONE/RARE) #/LPF Urine Crystals None seen (None Seen) #/HPF Urine Bacteria Trace A (NONE SEEN) #/HPF Urine Casts None seen (NONE SEEN) #/LPF Urine Mucus Trace A (NONE SEEN) Ur Culture Indicated? No Imaging Data US - abdomen: Attestation: I have reviewed the pertinent imaging results. Radiologist's impression: ITS Impressions Obstetrics Ultrasound 10/04/23 12:59 IMPRESSION: No evidence of placental abruption The cervix measures 3.6 cm in length. Fluid in the endocervical canal measuring up to 2.6 mm Nuchal cord Electronically authenticated by: CHRISTIAN KATE Date: 10/04/2023 14:08 Obstetrics Ultrasound 10/04/23 13:29 IMPRESSION: No evidence of placental abruption The cervix measures 3.6 cm in length. Fluid in the endocervical canal measuring up to 2.6 mm Nuchal cord Electronically authenticated by: CHRISTIAN KATE Date: 10/04/2023 14:08 Discharge Plan Discharge Chief Complaint: Urogenital-Female Clinical Impression: Third trimester bleeding Patient Disposition: Admitted as Observation Time of Disposition Decision: 15:19 Discharge Date/Time: 10/04/23 15:15
[2023-10-04] MEDS: ACETAMINOPHEN 500 MG TABLET 1000 MG PO (14:38)
--- OUTSIDE RECORDS SUMMARY | 2023-10-04 15:31 | XMS_ITS | CCD ---
Author Organization [facility] Care Team Providers Care Tariff Counsel Name Role Phone NON STAFF Primary Care Provider LAURA Kraft Emergency Provider NICOLE Ricci Emergency Provider [phone] DAPHNIE ., DR ALEXANDRE Attending Unavailabl e KARASIK ., DR ALEXANDRE Admitting Unavailabl [facility] Unava ilable KARASIK ., DR ALEXANDRE Consulting Unavailabl e LAVINIA, DR CHRISTIAN Doyle Consulting Unavailable KARASIK ., DR ALEXANDRE Consulting Unavailabl e KARASIK ., DR ALEXANDRE Attending Unavailabl e [facility] Unava ilable KARASIK ., DR ALEXANDRE Admitting Unavailabl e ANGELA SCOTT Consulting Unavailable DINA, DR ANA Dennis Attending Unavailable DINA, DR ANA Dennis Admitting [facility] DINA, DR ANA Dennis Consulting Unavailable KILO ., MR CUADRA Consulting Unavailable KARASIK ., DR ALEXANDRE Attending Unavailabl e [facility] Unava ilable KARASIK ., DR ALEXANDRE Admitting Unavailabl e KARASIK ., DR ALEXANDRE Attending Unavailabl e [facility] Unava ilable KARASIK ., DR ALEXANDRE Admitting Unavailabl e KARASIK ., DR ALEXANDRE Consulting Unavailabl e JOANNE HUDSON Consulting Unavailable GAVIN ATKINS Consulting Unavailable [facility] Unava ilable KARASIK ., DR [...] KARASIK ., DR ALEXANDRE Attending Unavailabl e [facility] Primary Care Unava ilable KARASIK ., DR ALEXANDRE Admitting Unavailabl e KARASIK ., DR ALEXANDRE Consulting Unavailabl e ZIEBER, ANGELA Dennis Consulting Unavailable KARASIK ., DR ALEXANDRE Attending Unavailabl e KARASIK ., DR ALEXANDRE Admitting Unavailabl e [facility] Primary Care Unava ilable KARASIK ., DR ALEXANDRE Consulting Unavailabl e KARASIK ., DR ALEXANDRE Consulting Unavailabl e KARASIK ., DR ALEXANDRE Attending Unavailabl e [facility] Primary [facility] Unava ilable KARASIK ., DR ALEXANDRE Admitting Unavailabl e WEST, DR CHRISTIAN Doyle Consulting Unavailable REQUEST, DR TYSON LISTED Consulting [facility] Primary Care Provider Unavailable Primary Care [...] Admitting Unavailable Sharma, Nelson Attending Unavailable SERVICES, [facility] Unava ilable KENDRA EDWARDS Attending Unavailable SERVICES, [facility] Unava ilable SYMONE LOZOYA Attending Unavailable RAUL HAMMOND Admitting Unavailable RAUL HAMMOND Attending Unavailable SERVICES, [facility] Unava ilable SERVICES, [facility] Unava il[facility] FRIES, ZEKE S Admitting Unavailable FRIES, ZEKE S Attending Unavailable SERVICES, [facility] Unava ilable JANES, ROBERT Attending Unavailable JANES, ROBERT Attending Unavailable DAPHNIE CR Attending Unavailable JANES, ROBERT Attending Unavailable JANES, ROBERT Attending Unavailable JANES, ROBERT Attending Unavailable JANES, ROBERT Attending Unavailable Allergies Allergy Classification Reported Allergen(s) Allergy Type Date of Onset Reaction(s) Facility (1 source) [facility] Drug Allergy [facility] Repository (2 sources) Azithromycin; Translations: [AZITHROMYCIN] Drug Allergy 2 [facility] Repository (5 sources) Adhesive agent; Translations: [ADHESIVE] Propensity to adverse reactions to drug 3 [facility] (6 sources) Azithromycin Drug Allergy 2 [facility] (2 sources) Macrolides And Ketolides Drug Allergy 4 Unknown [facility] Healthcare (2 sources) Wound Dressing Adhesive Drug Allergy 4 [facility] (1 source) Adhesive bandage; Translations: [Adhesive Bandage] Propensity to adverse reactions (disorder) [facility] Rep[facility] (1 source) Azithromycin; Translations: [Zithromax] Drug Allergy [facility] Repository (1 source) metroNIDAZOLE; Translations: [METRONIDAZOLE] Drug [facility] Medications Current Medications Medication Drug Class(es) Dates Sig (Normalized) Sig (Original) [id number] 200 actuat albuterol 0.09 mg/actuat metered dose [...] 09-04-2023 Bilirubin Ql (U) Negative Normal NEG [facility] Comment on above: Performed By: #### C HILLARY CANCINO, 3040-3 #### [facility] ([id number]) [address] [place] [address] 85219 BLOOD/HGB Negative Normal NEG [facility] Comment on above: Performed By: #### C HILLARY CANCINO, 3040-3 #### [facility] ([id number]) [address] [place] [address] 04203 Color (U) YELLOW Normal YELLOW [facility] Comment on above: Performed By: #### C HILLARY CANCINO, 3040-3 #### [facility] ([id number]) [address] [place] [address] 28531 Glucose Ql (U) Negative Normal NEG [facility] Comment on above: Performed By: #### C BARAK CMP, 3039-3 #### [facility] ([id number]) [address] [place] [address] 39097 Ketones Ql (U) Negative Normal NEG [facility] Comment on above: Performed By: #### Shakeel CANCINO CMP, 3039-3 #### [facility] ([id number]) [address] [place] [address] 48980 Leukocyte esterase Test strip Ql (U) Trace Abnormal NEG [facility] Comment on above: Performed By: #### Shakeel CANCINO CMP, 3 #### [facility] ([id number]) [address] [place] [address] 66555 Nitrite Ql (U) Negative Normal NEG [facility] Comment on above: Performed By: #### Shakeel CANCINO CMP, 3039-3 #### [facility] ([id number]) [address] [place] [address] 01207 pH (U) 6.5 [pH] Normal 5.0-8.5 [facility] Comment on above: Performed By: #### Shakeel CANCINO CMP, 3039-06 #### [facility] ([id number]) [address] [place] [address] 22039 Protein Ql (U) Negative Normal NEG [facility] Comment on above: Performed By: #### Shakeel CANCINO CMP, 3039-3 #### [facility] ([id number]) [address] [place] [address] 01461 R.B.CELLS 0 /hpf Normal 0-5 [facility] Comment on above: Performed By: #### Shakeel CANCINO CMP, 3039-3 #### [facility] ([id number]) [address] [place] [address] 21917 Specific gravity (U) [Rel density] 1.020 Normal 1.003-1.035 [facility] Comment on above: Performed By: #### C BARAK, CMP, 3040-3 #### [facility] ([id number]) [address] [place] [address] 35020 SQUAMOUS EPITHELIUM 5 /hpf Normal 0-5 [facility] Comment on above: Performed By: #### C BARAK, CMP, 0-3 #### [facility] ([id number]) [address] [place] [address] 56311 TURBIDITY HAZY Abnormal CLEAR [facility] Comment on above: Performed By: #### C BARAK, CMP, 3040-3 #### [facility] ([id number]) [address] [place] [address] 50595 Urobilinogen Qn (U) 1.0 {Pepito'U}/dL Normal <1.1 [facility] Comment on above: Performed By: #### C HILLARY CANCINO, 0-3 #### [facility] ([id number]) [address] [place] [address] 04854 W.B.CELLS 2 /hpf Normal 0-5 [facility] Comment on above: Performed By: #### C BARAK, CMP, 3040-3 #### [facility] ([id number]) [address] [place] [address] 32194 COMPLETE BLOOD COUNTon 07-29 Erythrocyte distribution width (RBC) [Ratio] 13.5 % Normal 11.5-15.0 [facility] Comment on above: Performed By: #### C BC, CMP #### [facility] ([id number]) [address] [place] [address] 57787 Hematocrit (Bld) [Volume fraction] 32.1 % Low 35-47 [facility] Comment on above: Performed By: #### C BC, CMP #### [facility] ([id number]) [address] [place] [address] 57430 Hemoglobin (Bld) [Mass/Vol] 11.0 g/dL Low 11.7-15.5 [facility] Comment on above: Performed By: #### C BC, CMP #### [facility] ([id number]) [address] [place] [address] 55413 MCH (RBC) [Entitic mass] 28.8 pg Normal 27-34 [facility] Comment on above: Performed By: #### C BC, CMP #### [facility] ([id number]) [address] [place] [address] 43256 MCHC (RBC) [Mass/Vol] 34.3 g/dL Normal 32-36 [facility] Comment on above: Performed By: #### C JASMIN, CMP #### [facility] ([id number]) [address] [place] [address] 84765 MCV (RBC) [Entitic vol] 84 fL Normal 80-100 [facility] Comment on above: Performed By: #### C JASMIN, CMP #### [facility] ([id number]) [address] [place] [address] 92605 Platelet mean volume (Bld) [Entitic vol] 8.9 fL Normal 7-12 [facility] Comment on above: Performed By: #### C JASMIN, CMP #### [facility] ([id number]) [address] [place] [address] 46837 Platelets (Bld) [#/Vol] 354 10*3/uL Normal 150-450 [facility] Comment on above: Performed By: #### C JASMIN, CMP #### [facility] ([id number]) [address] [place] [address] 13287 RBC COUNT 3.82 X10E12/L Normal 3.80-5.20 [facility] Comment on above: Performed By: #### C BC, CMP #### [facility] ([id number]) [address] [place] [address] 89330 WBC (Bld) [#/Vol] 12.0 10*3/uL High 4.0-11.0 [facility] Comment on above: Performed By: #### C BC, CMP #### [facility] ([id number]) [address] [place] [address] 74347 COMPREHENSIVE METABOLIC PANE Alex 07-30-2023 Albumin [Mass/Vol] 3.0 g/dL Low 3.2-5.3 [facility] Comment on above: Performed By: #### C BC, CMP #### [facility] ([id number]) [address] [place] [address] 47580 ALP [Catalytic activity/Vol] 67 U/L Normal 39-130 [facility] Comment on above: Performed By: #### C BC, CMP #### [facility] ([id number]) [address] [place] [address] 72987 ALT [Catalytic activity/Vol] 10 U/L Normal 0-31 [facility] Comment on above: Performed By: #### C BC, CMP #### [facility] ([id number]) [address] [place] [address] 67613 Anion gap [Moles/Vol] 7 mmol/L Normal 5-15 [facility] Comment on above: Performed By: #### C BC, CMP #### [facility] ([id number]) [address] [place] [address] 42073 AST [Catalytic activity/Vol] 12 U/L Normal 0-41 [facility] Comment on above: Performed By: #### C BC, CMP #### [facility] ([id number]) [address] [place] [address] 97523 Bilirubin [Mass/Vol] 0.5 mg/dL Normal 0.3-1.2 [facility] Comment on above: Performed By: #### C BC, CMP #### [facility] ([id number]) [address] [place] [address] 95129 Calcium [Mass/Vol] 8.1 mg/dL Low 8.5-10.5 [facility] Comment on above: Performed By: #### C BC, CMP #### [facility] ([id number]) [address] [place] [address] 19298 Chloride [Moles/Vol] 108 mmol/L Normal 98-109 [facility] Comment on above: Performed By: #### C BC, CMP #### [facility] ([id number]) [address] [place] [address] 21046 CO2 [Moles/Vol] 19 mmol/L Low 22-32 [facility] Comment on above: Performed By: #### C BC, CMP #### [facility] ([id number]) [address] [place] [address] 68045 Creatinine [Mass/Vol] 0.52 mg/dL Normal 0.40-1.00 [facility] Comment on above: Result Comment: METH OD TRACEABLE TO IDMS STANDARD Performed By: #### C BC, CMP #### [facility] ([id number]) [address] [place] [address] 46396 eGFR (CKD-EPI) NON-RACE DEPENDENT >90 Normal >59 [facility] Comment on above: Result Comment: Reported eGFR is based on the CKD-EPI 2021 equation that does not use a race coefficient. Performed By: #### C BC, CMP #### [facility] ([id number]) [address] [place] [address] 13494 Glucose [Mass/Vol] 79 mg/dL Normal 65-99 [facility] Comment on above: Performed By: #### C BC, CMP #### [facility] ([id number]) [address] [place] [address] [place] [address] Potassium [Moles/Vol] 3.9 mmol/L Normal 3.5-5.0 [facility] Comment on above: Performed By: #### C BC, CMP #### [facility] ([id number]) [address] [place] [address] 45672 Protein [Mass/Vol] 6.1 g/dL Normal 6.0-8.0 [facility] Comment on above: Performed By: #### C BC, CMP #### [facility] ([id number]) [address] [place] [address] 86393 Sodium [Moles/Vol] 134 mmol/L Normal 134-146 [facility] Comment on above: Performed By: #### C BC, CMP #### [facility] ([id number]) [address] [place] [address] 55198 Urea nitrogen [Mass/Vol] 6 mg/dL Normal 5-23 [facility] Comment on above: Performed By: #### C BC, CMP #### [facility] ([id number]) [address] [place] [address] 69587 DRUG SCREEN, URINEon 024 AMPHETAMINE/METHAMP Negative Normal NEG [facility] Comment on above: Result Comment: AMPH /METH screening cut off = 1000 ng/mL Performed By: #### D FLOWER #### [facility] ([id number]) [address] [place] [address] [place] [address] BARBITURATES Negative Normal NEG [facility] Comment on above: Result Comment: Deirdre iturates screening cut off value = 200 ng/mL Performed By: #### D FLOWER #### [facility] ([id number]) [address] [place] [address] [place] [address] BENZODIAZEPINES Negative Normal NEG [facility] Comment on above: Result Comment: Vinny odiazepines screening cut off value = 200 ng/mL Performed By: #### D FLOWER #### [facility] ([id number]) [address] [place] [address] 77093 CANNABINOIDS Negative Normal [facility] Comment on above: Result Comment: Lavern abinoids/THC screening cut off value = 50 ng/mL Performed By: #### D FLOWER #### [facility] ([id number]) [address] [place] [address] 12780 COCAINE METABOLITE Negative Normal NEG [facility] Comment on above: Result Comment: Coca ine screening cut off value = 300 ng/mL Performed By: #### D FLOWER #### [facility] ([id number]) [address] [place] [address] 73180 ECSTASY Negative Normal [facility] Comment on above: Result Comment: Ecst asy screening cut off value = 500 ng/mL This report is intended for use in clinical monitoring or management of patients. Performed By: #### D FLOWER #### [facility] ([id number]) [address] [place] [address] 32028 METHADONE Negative [facility] Comment on above: Result Comment: Meth adone screening cut off value = 300 ng/mL. Performed By: #### D FLOWER #### [facility] ([id number]) [address] [place] [address] 89837 OPIATES Negative Normal NEG [facility] Comment on above: Result Comment: Opia bernadette screening cut off value = 300 ng/mL NOTE: This test is used for the detection of codeine, hydrocodone (>1000 ng/mL), morphine and hydromorphone (>900 ng/mL) in urine. Performed By: #### D FLOWER #### [facility] ([id number]) [address] [place] [address] [place] [address] OXYCODONE Negative Normal NEG [facility] Comment on above: Result Comment: Oxyc odone screening cut off value = 300 ng/mL NOTE: This test is used for the detection of oxycodone and oxymorphone in urine. Performed By: #### D FLOWER #### [facility] ([id number]) [address] [place] [address] [place] [address] PHENCYCLIDINE Negative [place] NEG [facility] Comment on above: Result Comment: Phen cyclidine screening cut off value = 25 ng/mL Performed By: #### D FLOWER #### [facility] ([id number]) [address] [place] [address] [place] [address] URINALYSISon 07-30-2023 Bilirubin Ql (U) Negative Normal NEG [facility] Comment on above: Performed By: #### C HILLARY CANCINO, 3040-3 #### [facility] ([id number]) [address] [place] [address] [place] [address] BLOOD/HGB Negative Normal NEG [facility] Comment on above: Performed By: #### Shakeel CANCINO CMP, 3040-3 #### [facility] ([id number]) [address] [place] [address] [place] [address] Color (U) YELLOW Normal YELLOW [facility] Comment on above: Performed By: #### C HILLARY CANCINO, 3040-3 #### [facility] ([id number]) [address] [place] [address] [place] [address] Glucose Ql (U) Negative Normal NEG [facility] Comment on above: Performed By: #### Shakeel CANCINO CMP, 3040-3 #### [facility] ([id number]) [address] [place] [address] [place] [address] Ketones Ql (U) Negative Normal NEG [facility] Comment on above: Performed By: #### Shakeel CANCINO CMP, 3040-3 #### [facility] ([id number]) [address] [place] [address] [place] [address] Leukocyte esterase Test strip Ql (U) Negative Normal NEG [facility] Comment on above: Performed By: #### C HILLARY CANCINO, 3039-3 #### [facility] ([id number]) [address] [place] [address] 00148 Nitrite Ql (U) Negative Normal NEG [facility] Comment on above: Performed By: #### Shakeel CANCINO CMP, 3039-3 #### [facility] ([id number]) [address] [place] [address] 89384 pH (U) 7.0 [pH] Normal 5.0-8.5 [facility] Comment on above: Performed By: #### Shakeel CANCINO CMP, 3 #### [facility] ([id number]) [address] [place] [address] 14832 Protein Ql (U) Negative Normal NEG [facility] Comment on above: Performed By: #### Shakeel CANCINO CMP, 3 #### [facility] ([id number]) [address] [place] [address] 94820 R.B.CELLS 0 to 1 Normal 0-5 [facility] Comment on above: Performed By: #### Shakeel CANCINO CMP, 3 #### [facility] ([id number]) [address] [place] [address] 92981 Specific gravity (U) [Rel density] 1.020 Normal 1.003-1.035 [facility] Comment on above: Performed By: #### Shakeel CANCINO CMP, 3039-3 #### [facility] ([id number]) [address] [place] [address] 61305 SQUAMOUS EPITHELIUM 2 /hpf Normal 0-5 [facility] Comment on above: Performed By: #### Shakeel CANCINO CMP, 3039-3 #### [facility] ([id number]) [address] [place] [address] 75959 TURBIDITY CLOUDY Abnormal CLEAR [facility] Comment on above: Performed By: #### C BARAK, CMP, 3039-3 #### [facility] ([id number]) [address] [place] [address] 62888 Urobilinogen Qn (U) 0.2 {Pepito'U}/dL Normal <1.1 [facility] Comment on above: Performed By: #### Shakeel CANCINO CMP, 3039-3 #### [facility] ([id number]) [address] [place] [address] 89440 W.B.CELLS 1 /hpf Normal 0-5 [facility] Comment on above: Performed By: #### Shakeel CANCINO CMP, 3039-3 #### [facility] ([id number]) [address] [place] [address] 08916 CBC AND AUTO DIFFon 07-11-19 24 ABSOLUTE BASOPHIL 0.0 X10E9/L Normal 0.0-0.2 [facility] Comment on above: Performed By: #### Shakeel CANCINO, CMP, 3039-3 #### [facility] ([id number]) [address] [place] [address] 45491 ABSOLUTE NEUTROPHIL 9.7 X10E9/L High 1.5-6.6 [facility] Comment on above: Performed By: #### Shakeel CANCINO CMP, 3039-3 #### [facility] ([id number]) [address] [place] [address] 42894 Basophils/100 WBC (Bld) 0.2 % Normal [facility] Comment on above: Performed By: #### Shakeel CANCINO CMP, 3039-3 #### [facility] ([id number]) [address] [place] [address] 72356 Eosinophils (Bld) [#/Vol] 0.1 10*3/uL Normal 0.0-0.4 [facility] Comment on above: Performed By: #### Shakeel CANCINO CMP, 3039-06 #### [facility] ([id number]) [address] [place] [address] 96796 Eosinophils/100 WBC (Bld) 0.5 % Normal [facility] Comment on above: Performed By: #### Shakeel CANCINO CMP, 3039-06 #### [facility] ([id number]) [address] [place] [address] 19253 Erythrocyte distribution width (RBC) [Ratio] 13.4 % Normal 11.5-15.0 [facility] Comment on above: Performed By: #### Shakeel CANCINO CMP, 3039-06 #### [facility] ([id number]) [address] [place] [address] 22459 Hematocrit (Bld) [Volume fraction] 37.1 % Normal 35-47 [facility] Comment on above: Performed By: #### Shakeel CANCINO CMP, 3039-06 #### [facility] ([id number]) [address] [place] [address] 76836 Hemoglobin (Bld) [Mass/Vol] 12.6 g/dL Normal 11.7-15.5 [facility] Comment on above: Performed By: #### Shakeel CANCINO CMP, 3039-06 #### [facility] ([id number]) [address] [place] [address] 35352 Lymphocytes (Bld) [#/Vol] 3.1 10*3/uL Normal 1.0-3.5 [facility] Comment on above: Performed By: #### Shakeel CANCINO CMP, 3039-06 #### [facility] ([id number]) [address] [place] [address] 94238 Lymphocytes/100 WBC (Bld) 22.3 % Normal [facility] Comment on above: Performed By: #### Shakeel CANCINO CMP, 3039-06 #### [facility] ([id number]) [address] [place] [address] 45770 MCH (RBC) [Entitic mass] 28.3 pg Normal 27-34 [facility] Comment on above: Performed By: #### Shakeel CANCINO CMP, 3039- #### [facility] ([id number]) [address] [place] [address] 31030 MCHC (RBC) [Mass/Vol] 33.9 g/dL Normal 32-36 [facility] Comment on above: Performed By: #### Shakeel CANCINO CMP, 3039-06 #### [facility] ([id number]) [address] [place] [address] 86301 MCV (RBC) [Entitic vol] 84 fL Normal 80-100 [facility] Comment on above: Performed By: #### Shakeel CANCINO CMP, 3039-06 #### [facility] ([id number]) [address] [place] [address] 25601 Monocytes (Bld) [#/Vol] 1.1 10*3/uL High 0-0.9 [facility] Comment on above: Performed By: #### Shakeel CANCINO CMP, 3039-06 #### [facility] ([id number]) [address] [place] [address] 10956 Monocytes/100 WBC (Bld) 8.0 % Normal [facility] Comment on above: Performed By: #### Shakeel CANCINO CMP, 3039-06 #### [facility] ([id number]) [address] [place] [address] 15085 Neutrophils/100 WBC (Bld) 69.0 % Normal [facility] Comment on above: Performed By: #### Shakeel CANCINO CMP, 3039-06 #### [facility] ([id number]) [address] [place] [address] 74564 Platelet mean volume (Bld) [Entitic vol] 8.3 fL Normal 7-12 [facility] Comment on above: Performed By: #### C BCA, CMP, 3039-3 #### [facility] ([id number]) [address] [place] [address] 04612 Platelets (Bld) [#/Vol] 380 10*3/uL Normal 150-450 [facility] Comment on above: Performed By: #### C BCA, CMP, 3039-3 #### [facility] ([id number]) [address] [place] [address] 54593 RBC COUNT 4.43 X10E12/L Normal 3.80-5.20 [facility] Comment on above: Performed By: #### C BCA, CMP, 3039-3 #### [facility] ([id number]) [address] [place] [address] 25254 WBC (Bld) [#/Vol] 14.0 10*3/uL High 4.0-11.0 [facility] Comment on above: Performed By: #### C BCA, CMP, 3039-3 #### [facility] ([id number]) [address] [place] [address] 32784 COMPREHENSIVE METABOLIC PANE Alex 07-11-2023 Albumin [Mass/Vol] 3.4 g/dL Normal 3.2-5.3 [facility] Comment on above: Performed By: #### C BCA, CMP, 3039-3 #### [facility] ([id number]) [address] [place] [address] 58227 ALP [Catalytic activity/Vol] 65 U/L Normal 39-130 [facility] Comment on above: Performed By: #### C BCA, CMP, 3039-3 #### [facility] ([id number]) [address] [place] [address] 39673 ALT [Catalytic activity/Vol] 13 U/L Normal 0-31 [facility] Comment on above: Performed By: #### C BCA, CMP, 3039-3 #### [facility] ([id number]) [address] [place] [address] 40280 Anion gap [Moles/Vol] 4 mmol/L Low 5-15 [facility] Comment on above: Performed By: #### C BCA, CMP, 3039-3 #### [facility] ([id number]) [address] [place] [address] 64024 AST [Catalytic activity/Vol] 14 U/L Normal 0-41 [facility] Comment on above: Performed By: #### C BCA, CMP, 3039-3 #### [facility] ([id number]) [address] [place] [address] 95679 Bilirubin [Mass/Vol] 0.5 mg/dL Normal 0.3-1.2 [facility] Comment on above: Performed By: #### C BCA, CMP, 3039-3 #### [facility] ([id number]) [address] [place] [address] 99928 Calcium [Mass/Vol] 8.2 mg/dL Low 8.5-10.5 [facility] Comment on above: Performed By: #### C BCA, CMP, 3039-3 #### [facility] ([id number]) [address] [place] [address] 67226 Chloride [Moles/Vol] 107 mmol/L Normal 98-109 [facility] Comment on above: Performed By: #### C BCA, CMP, 3039-3 #### [facility] ([id number]) [address] [place] [address] 09332 CO2 [Moles/Vol] 20 mmol/L Low 22-32 [facility] Comment on above: Performed By: #### C BCA, CMP, 0-3 #### [facility] ([id number]) [address] [place] [address] 19228 Creatinine [Mass/Vol] 0.59 mg/dL Normal 0.40-1.00 [facility] Comment on above: Result Comment: METH OD TRACEABLE TO IDMS STANDARD Performed By: #### C HILLARY CANCINO, 3040-3 #### [facility] ([id number]) [address] [place] [address] 08833 eGFR (CKD-EPI) NON-RACE DEPENDENT >90 Normal >59 [facility] Comment on above: Result Comment: Reported eGFR is based on the CKD-EPI 2020 equation that does not use a race coefficient. Performed By: #### C [facility], 3039-3 #### [facility] ([id number]) [address] [place] [address] 99746 Glucose [Mass/Vol] 91 mg/dL Normal 65-99 [facility] Comment on above: Performed By: #### Shakeel [facility], 3 #### [facility] ([id number]) [address] [place] [address] 44461 Potassium [Moles/Vol] 3.9 mmol/L Normal 3.5-5.0 [facility] Comment on above: Performed By: #### Shakeel [facility], 3 #### [facility] ([id number]) [address] [place] [address] 53144 Protein [Mass/Vol] 7.1 g/dL Normal 6.0-8.0 [facility] Comment on above: Performed By: #### C [facility], 0-3 #### [facility] ([id number]) [address] [place] [address] 35225 Sodium [Moles/Vol] 131 mmol/L Low 134-146 [facility] Comment on above: Performed By: #### Shakeel [facility], 3039-3 #### [facility] ([id number]) [address] [place] [address] 52605 Urea nitrogen [Mass/Vol] 5 mg/dL Normal 5-23 [facility] Comment on above: Performed By: #### C [facility], 3040-3 #### [facility] ([id number]) [address] [place] [address] LIPASEon 07-11-2023 Lipase [Catalytic activity/Vol] 28 U/L Normal 17-40 [facility] Comment on above: Performed By: #### C BARAK, [facility], 3040-3 #### [facility] ([id number]) [address] [place] [address] SARS/FLU A+B/RSV by NAAT/Mol ecularon 07-11-2023 SARS/FLU [...] operators who are performing tests using either Trunity DX or Sviral systems and is limited to laboratories that [...] repeat. Fact Sheet for Healthcare Providers: https://www.fda.gov/ media/602761/downloa d Fact Sheet for Patients: https://www.fda.gov/ media/306135/downloa d Normal [facility] Comment on above: Performed By: #### C OVFLR #### [facility] ([id number]) [address] [place] [address] 36197 URINE CULTUREon 07-11-2023 Bacteria identified Cx Nom (U) CULTURE RESULTS 10-50,000 ORGANISMS/mL NORMAL UROGENITAL JONNY Normal [facility] Comment on above: Performed By: #### 6 30-4 #### [facility] ([id number]) [address] [place] [address], [address] [place] [address] URN MACROSCOPIC NURon 2023 BILIRUBIN NEHA Negative Normal NEG [facility] Comment on above: Performed By: #### N UM #### [facility] ([id number]) [address] [place] [address] 17009 BLOOD/HGB NEHA Negative Normal NEG [facility] Comment on above: Performed By: #### N UM #### [facility] ([id number]) [address] [place] [address] 94885 GLUCOSE NEHA Negative Normal NEG [facility] Comment on above: Performed By: #### N UM #### [facility] ([id number]) [address] [place] [address] 42380 KETONES NEHA 40 mg/dL Abnormal NEG [facility] Comment on above: Performed By: #### N UM #### [facility] ([id number]) [address] [place] [address] [place] [address] LEUKOCYTE ESTERASE NEHA Negative Normal NEG [facility] Comment on above: Performed By: #### N UM #### [facility] ([id number]) [address] [place] [address] 96116 NITRITE NEHA Negative Normal NEG [facility] Comment on above: Performed By: #### N UM #### [facility] ([id number]) [address] [place] [address] 10545 PH NEHA 8.0 Normal 5.0-8.5 [facility] Comment on above: Performed By: #### N UM #### [facility] ([id number]) [address] [place] [address] 93809 PROTEIN NEHA Trace Abnormal NEG [facility] Comment on above: Performed By: #### N UM #### [facility] ([id number]) [address] [place] [address] [place] [address] SPECIFIC GRAVITY NEHA 1.020 Normal 1.003-1.035 [facility] Comment on above: Performed By: #### N UM #### [facility] ([id number]) [address] [place] [address] [place] [address] UROBILINOGEN NEHA 1.0 eu/dL Normal <1.1 [facility] Comment on above: Performed By: #### N UM #### [facility] ([id number]) [address] [place] [address] [place] [address] URN MACROSCOPIC NURon 2023 BILIRUBIN NEHA Negative Normal NEG [facility] Comment on above: Performed By: #### N UM #### [facility] ([id number]) [address] [place] [address] 57919 BLOOD/HGB NEHA Negative Normal NEG [facility] Comment on above: Performed By: #### N UM #### [facility] ([id number]) [address] [place] [address] [place] [address] GLUCOSE NEHA Negative Normal NEG [facility] Comment on above: Performed By: #### N UM #### [facility] ([id number]) [address] [place] [address] [place] [address] KETONES NEHA Negative Normal NEG [facility] Comment on above: Performed By: #### N UM #### [facility] ([id number]) [address] [place] [address] [place] [address] LEUKOCYTE ESTERASE NEHA Trace Abnormal NEG [facility] Comment on above: Performed By: #### N UM #### [facility] ([id number]) [address] [place] [address] [place] [address] NITRITE NEHA Negative Normal NEG [facility] Comment on above: Performed By: #### N UM #### [facility] ([id number]) [address] [place] [address] [place] [address] PH NEHA 7.5 Normal 5.0-8.5 [facility] Comment on above: Performed By: #### N UM #### [facility] ([id number]) [address] [place] [address] [place] [address] PROTEIN NEHA Negative Normal NEG [facility] Comment on above: Performed By: #### N UM #### [facility] ([id number]) [address] [place] [address] [place] [address] SPECIFIC GRAVITY NEHA 1.025 Normal 1.003-1.035 [facility] Comment on above: Performed By: #### N UM #### [facility] ([id number]) [address] [place] [address] [place] [address] UROBILINOGEN NEHA 0.2 eu/dL Normal <1.1 [facility] Comment on above: Performed By: #### N UM #### [facility] ([id number]) [address] [place] [address], [place] [address] Coding Summaryon 05-31-2023 Coding Summary HTMLBase 64 PtrialqkAFg4tCr+PGhl YWQ+ZT5MZCIjJ61ruZLm gQ6uK2EGCLvGTpfcWMQR FTzKVqIpfhIdQA4dsAKz ZXJu IC8+CD4eORAmYkckeCSz b6O9mHG3P71jkx0wFBec iGU9PUPdWlFwxyvej6md lCj7ZOfkPvhoOkKe NITyuH67PVK9rA67Gl75 xPRexGGvz4zhuMc2CcOe XPSwTBJ7mFgjJMqok6Oj XZJyT09dvYGsy7L1 IGNvbGxhcHNlOyBlbXB0 dL7lBApalvaia1kzdmuz Tzp6tv91dQSqr3N3nTT3 J5BvjkN6WHWquCVw AdmhlBPZkV8qbtyxo9lf vrujDpSoRDAmORs6UPz5 CVArbTrkYbAlRW74MOS4 WLTkfdJkC0IkPXZz aFpwWgR3m7X0Bs8TM1EJ IkclP6UHUMJGQAufkND+ JW42is21S3OlMqrkCdr0 SWYfQXP5rKS6pE0a XBMpPLhjy1G5xEG5Y5Jq qcZrnf7bs5vwSWVdOOba F39jjTZid3O4NPWfkRU2 JREzcTqvNxPklP76 Oyc+GAIuvWphm9QtVxag h0psj0hrfQi5NcplADFp bvRrkFylOLM8y4RgYp3l TAUatJD1aZU4oG5v SeRqUlS0DYjcG721WqWq zUDtFywfF82yE3IntFQ+ GKFkQlw1VCFnyFxiLH7r X9SmGTQjtuklhFCy cXlaLA2oZVNtqkmvLPSi vK2mABCwK4d0YpEnDcE9 XHcoR7NnJSUzxrvpZm05 pQ4oBzXjXkL8MKjs H9XvjbX1ZPCipMGsTIzp SYR1B88tm4N1KFXpNIIc PLC2cPQ4sZ1ulVmgonyn bGVmdDsgdmVydGlj UWfdKAvmN049VMDlvOoy PkNvZGluZyBEYXRlOiAg MDIvMjMvMjAyNDwvdGQ+ RXMkSCY0gVwxBKDc uOLsZWerMj1aiAczmIzx RL7lPSVhbtkaNVMnyR2k UQOxbAQswNroFX3aUNBx jdqoj673TbCnPAI6 RURkaHAnZ7ExkK3tNaWp PYHkSLGoX6ZflMDmQFwq H369HAtwIyZ3TQCecfTs X1QnKLGemUfoXiG6 w9N9La6Ta8WlhcfwR8Fn lPJeLxBtHljnMRg8A3Fy PjwvdHI+XT94DLFuXJ77 CEy9CQE5cEiuVRlf PJUcN2YpeQ7cCqGqUFXt ZGRkOyc+PHRhYmxlIHdp ZHRoPScxMDAlJyBzdHls YT3sJz3pIVEhKKLf dJhddJBnQiUpn3ptNHWd XKlsFO3gxMykH7MkkRJ7 EITjq6x9Xm67O60lU7Nz dXA+YKDcwOH7uIV3 lS5gKaAmHaR9VPjnL802 GoYplUPfYrxbw7vxj2uk tAl7TzQ8RZEsmzXjvOfb WXF0y4LbFt53D93c IHdpZHRoPSIxNSUiIHZh bSrdnm3gjR6tOe5+PGNv uFM2tQM1bV9yEuPvEoS6 AJcuL985OyBddUBz Mgdhj9wpr0kumWi3ZwBp NXDllhAznRdeTUJ2f2Ts Oq29U4QuaMufg2UhFoy5 hp57zILtu5Y7zXC5 L7HjGRKbvdnnaJTctSqz YZ4rVEAhuqshKKAwnW0b WDDyS8z7AfRkLqL9JGew M1AnanQ5UJAowXWr QLSuxGEFpU0nwvoyr3fc urrmHaVoCCZmOZv4KFi3 PIVigChsLlTyKLV5XdB7 COR7qUMymD2orPhy bdkobX0iTes+LRI0dBZq kVWFIR1xTfsstBA+PHRk UIY8oVhuPYmvJKVuuR3w EDFdD2k8LpNeMoJ5 JOkoT3YedzG7TPXzoAWs LIEmcSGNmH7snchgg5jd watfIxKjUYLtSWl0JOu8 LWFsaWduOiBsZWZ0 QxK0NMI7uURvzR5evUha rsifjE4mZad+QmlydGgg TYE9XOh5W5UtNaq4NZGn tMkqBN0kyJYzSWbt Cn0trCblwUacBY3tZVJo yrebk943ZdUvt3ksOOKe eZWiWIfdNBH6N83uk2W5 MIUdETOgZGF0eOM2 cC3orFarrqyebCXhrOnm hdMskUoiFYecDCwqV581 KLVakSjxDkXnXMe8C8Ij Rum8TGZseVpeXN8g wYGwJRdzEp7skBzvpRob ZY4vWYXtuqpnq935GwWm t3lhZXPpzPYyCAmhBRA9 D56eq7Q5VWJiGIXq DNC2hVN4sA5bjRnkehnx bGVmdDsgdmVydGljYWwt NTxqT506RDZcgViiSlOz iCm1Z1AqOtl0PKOp mEdcOO7kfLPeANagIm9l vXtvbVgpKS4tGIMrigeq c299HpHrw0thSVRmaBAp STxtAXJ7M59mv3Z3 PBHpVDVcMRD0nZO3cU8l bGlnbjogbGVmdDsgdmVy yOgcAZbsHYexK470UJWm cDsnPlBhdGllbnQg DNuzQQi5C0NyWmikaLJ+ TF36SKGrLJ21xYVahQHh h1zmxAj2VqTtFGScYVZ4 iIahPTgcd3AaUEHf W81tgMFpg9Y4ZFJkkPlc qMOaFgIzmGO9zL7xXPhm tyryp3qwphovSswco5ic yr62hR06Q81tKFgv ZHRoPSIzMCUiIHZhbGln ja3rqN1cFh8+PGNvbCB3 fAM5kD1tHUSbFbJ7MEhp Q498LkNzaPDlHcgi l9jqo4rlbZe0CcR0AXTn izSgaRjwQGY4k3ExYj06 F04gDTffIQZaSHZmOOIv BONfuLtqca3ptW8m Ii8+PPDwgXD2iZY7fG6b HhYeDzG5KMpmZ723QaPs lTLtZurwX95dB2MpwCT+ JJNyFpj2KQWetZua JN1rjMVvONykJh4vNSU5 CdLoGuJzUMjjM9YyTQYj fennqzugtOV2BLEeZPFl yP87Ao2esRvrZGJx gQJKyE8gtcxiw2ujfnog AfVrPJGpOBm7NPu7LWDm eHajJlZiGAP9GcX0RLO4 oVEhzV8fnUyxfiyu sB6lL5PyQIZvknlqDt37 tD7wUxDoUeN5DTmdKyj+ L2xYReXEIHhqQ4wMFYAR BEhVRB8BPGwwlYB+ VGJqIZA4wXerNTpnYLCk fH0fUHQtI9e3XyYkDgZ9 MDhjQ1AdTFNknyucOn43 lZ6kGdSnNhF6XJjw A5HdubZ9KDWzcGFxRHzc JHW7S97km9U1YXDtSSTv INW1yFX2nY6odOoqxhjf bGVmdDsgdmVydGlj XEowOWauN572EDVncSru VaI9TfFgMkVtPMA5H5Jm Nre7XZTsiZgvOQ4vrMJn YXrkAd3vbJengOti DV0hMLUkjkbtOGGsjC6w PGNuoUKqfYenUW1zOIXo gpajp476FpSkFSQ9EAMw qZUlD3IutQ6bNhTk JHSkZJCyL0MveAJeHGpi L820PBcbMgB1YMPpmpGt H4WaTXNwpDprNbI7p1H8 Si0zYXCEGVPoonpq dGQ+ZYGuYEH8lKjcRUvi GALwhK0wGBUdO7c6SyDw HjL1GKjhR8RfWLNijunl Ro98uA7fUsHlWfT4 UTdfG8GtjpD3GGZxqSKz UVijMLF2G36na3V5NMCy RZAqBOP6pZS9iU5pxDks bjogbGVmdDsgdmVy pAmkWIxwDSgaN228LJBz cDsnPkZFTUFMRTwvdGQ+ QVNmUEJ7zCwqRMymMJGn yC6dIQZlY7t0RxQo UeF6GAgcB6LxGBUkhgtk Qk25bQ6uKeYrMhK9ABrp G1ZxdzI1TGCjnCFtBXtl USR0U99jb3B3QTYh FVDrGRX8kRH7rX2hmIei bjogbGVmdDsgdmVydGlj TBvjYUkoG412JQVawQbd NvNjPXOtAH5ixPjj dGQ+OB98mc41R5NtEbtd Pwf1RCJnWAR7kMM1eD7d ZJWwULqjz4O9zYK7O7Jk inBvzs9zk2ttSCMx IChaN80xzUFfs4K3VGQr kJG8ESUtmXovXkYsjR79 Oyc+GKDrfGbgb4UmSxxh d0usb6euwHq5SjZp HFGwylIjiNjdMOK6v3Bs Uh12C49uXYihXJJsYQNi OEYxUHPvpWuchk1yhZ7f Ii8+TPJlcRT0oTJ5 oG3vCwWzYmT1ABveQ932 AxNmnIEzCneqm3iaf6fa nAw4VsSkQRLyqdFbqMlg IUS5w3FdZx83K2Kg rFgcx4FcUkg3eq38iHJj x5B0lSI5X7HwFIPfluxk xCZcbAjzBK2nCHIjweuo CVLmjV5uUYAmW8d9 NrKvUzS5IGhuX0PuprA4 URDzgXYeXNAyrUEKqM5e azeph6tcofvvMnAfCDEd YWf1QCs2OLQqgDyl FiTxJRJ0KsL1SWI7kCOu dD8rmMmsrrpupQ5sQoe+ XAr7z6slrYGkYX1xeFO5 MF37XX62zVHha2C9 rEZ8R7NdWNNwhryopnij yWS0AFMnCJHijK03Ws3k cYtrMg2rAWHwMEV4QVZu eNYnR9HvjC7yKiAn VTArOJQaS3OjxCFrJVyk S786PTxeBrK2BDAlpeAu J5BnSUDesDnfGaS4g4Y0 Mt3UWS45SM22GX03 uABof0A9jZQ7I6JlVTQk sxdgxqgspCS3ZWExZJLl vI50Sq7onRblCn9mADWh EPJ0IEDumQRiK1Qx dA3iOrUcPHUqUTIbF7Ag hHBfZGiwX658JKkqLhB0 CLWbzfDbX9BfLHWpoEct YwC1f6I0Bs2WYq24 XH31NE00uIFey6Z4iUF4 M5QsLMHzjyqatcdvoAE6 ULBnDMLjyB90Be3fqDtw Kd3iNLBjSCU0ONGb eIWgK8ZumW3kFoMbKKVa QREsS3HxmSZnBShzI696 MStuMqP5GQLbekVoW1Pp EOYzrBrwBbY6b1O5 Qt9XIPfxhjq5A7UmCnpz dHI+AL89EBZfJF22rUHy xHAgo5vyjBn6QoBbDDPr ETG2fHakGUwbv7Nc ZXI (more content not included)... [facility] C Throaton 05-28-2023 C Throat Ordered by Radha. Normal throat jonny isolated No pathogens isolated [facility] Comment on above: Performed By: #### 1 [id number], [id number] #### [facility] (DEFAULT) [address] [place] [address] .QC SARS-CoV-2 (COVID-19)/Fl u/RSV (GeneXpert)on 05-26-2023 Internal Control Pass [facility] Comment on above: Order Comment: Order ed by Radha.[[email or web address]] Performed By: #### 1 [id number], [id number], [id number] #### [facility] (DEFAULT) [address] [place] [address] COVID/Flu/RSV (GeneXpert)on 05-26-2023 Flu A (GXpert COVFLURSV) Negative Normal Negative [facility] Comment on above: Performed By: #### 1 [id number], [id number] #### [facility] (DEFAULT) [address] [place] [address] Flu B (GXpert COVFLURSV) Negative Normal [facility] Comment on above: Performed By: #### 1 [id number], [id number], [id number] #### [facility] (DEFAULT) [address] [place] [address] RSV (GXpert COVFLURSV) Negative Normal Negative [facility] Comment on above: Performed By: #### 1 [id number], [id number], [id number] #### [facility] (DEFAULT) [address] [place] [address] SARS-CoV-2 (COVID-19) RNA MILY+probe Ql (Unsp spec) Negative Normal Negative [facility] Comment on above: Result Comment: Perf ormed by PCR methodology. Performed By: #### 1 [id number], [id number], [id number] #### [facility] (DEFAULT) [address] [place] [address] ED Clinical Summaryon 2023 ED Clinical Summary [facility] Emergency Department [address] [place] [address] ED Clinical Summary PERSON INFORMATION Name: LIA DESAI Age: 22 Years Sex: FEMALE : 2000 MRN: Acct#: Visit Reason: Diarrhea; Fever; Headache; Throat pain - Adult; Body aches; HEADACHE, FEVER, BODY ACHES Arrival: 05/26/2023 17:02:55 Discharge: 05/26/2023 18:57:00 LOS: 000 01:55 Check In: 05/26/2023 17:02:55 Checkout:05/26/2023 18:57:00 Address: [address] [place] [address] PCP: ROBERT MARRERO PROVIDER INFORMATION Provider Role [...] Home PATIENT EDUCATION INFORMATION Instructions: Hypertension, Adult, Irft-hw-Vegn; Nausea and Vomiting, Adult, Lebv-my-Frvo Follow-Up: With: Address: When: ROBERT MARRERO [address] [place] [address] Within 3 to 5 days DIAGNOSIS: 1:Nausea vomiting and diarrhea; 2:Elevated blood pressure reading; Diarrhea, unspecified Patient Understands: Yes - Patient/family/careg iver verbalizes understanding of instructions given Comment: Normal [facility] ED Patient Summaryon 024 ED Patient Summary [facility] - Emergency Department [address] [place] [id number] PATIENT DISCHARGE INSTRUCTIONS Patient Information Name: LIA DESAI Age: 22 Years Date of : 2000 Reason For Visit: Diarrhea; Fever; Headache; Throat pain - Adult; Body aches; HEADACHE, FEVER, BODY ACHES Arrival Time: 05/26/2023 17:02:55 Primary Care Physician: ROBERT MARRERO Attending Physician: Yassine Maldonado MD Comment: Visit Diagnosis: Diagnoses This Visit Body aches ([id number]) Diarrhea ([id number]) Diarrhea, unspecified (R19.7) Elevated blood pressure reading (R03.0) Fever ([id number]) Headache ([id number]) Nausea vomiting and diarrhea (R11.2) Throat pain - Adult ([id number]) The Pharmacy at [facility] is open Saturday through Saturday from 9A [...] alcohol and/or drug addiction problems; contact the [facility] 29/10 Crisis Hotline -Text 9ZEAZ jp [phone]. If you received any narcotics, sedation, or [...] any legal documents With: Address: When: JANESROBERT [address] [place] [address] Within 3 to 5 days Medication Information: The exam and treatment you received today in the [facility] Emergency Department were for an urgent problem and are not intended as complete care. It is important for you to follow up with a doctor, nurse practitioner, or physician?s promotions assistant for ongoing care. If your symptoms [...] so we can reach you if necessary. [facility] Emergency Department has provided you with a complete list of medications post discharge. Please inform your marketing communications coordinator/provider of your visit and for further instruction [...] pressure an (more content not included)... Normal [facility] Strep Aon 05-26-2023 Strep procedure control Pass Normal [facility] Comment on above: Performed By: #### 1 [id number] #### [facility] (DEFAULT) [address] [place] [address] Streptococcus A Negative Normal Negative [facility] Comment on above: Performed By: #### 1 [id number] #### [facility] (DEFAULT) [address] [place] [address] Coding Summaryon 05-20-2023 Coding Summary HTMLBase 64 JcmpordjPFs0nMp+PGhl YWQ+IS1YYVZpV51buPKd vQ4fR5NIMGrEBnsbGTRP PRkISsKnkjCcJK3wyTMw ZXJu IC8+DP8uHTErXmsgkXWx k4C0nPT9O90tzd3rXPik rGE5QIUrGnHgzblvi3mr kDi2BUqwByhhAfXd YQMauM32CME4xM68Bc22 gLVjnHRhk9rieEj5SmFy XLHhWCL1eNcsPBogp9Uv QWRuN78rbONin3T3 IGNvbGxhcHNlOyBlbXB0 nS0kJFxmovrjt4xulrxs Qex0qx39jIBnn9E8bBG2 Y8SfoiR0IVQziPIe NzlqlLZVlQ8ncpqhv0nq zfwwPsEyTRAlTFr3LDl8 XKJfbSeiUzHqGY44SQJ6 ZUMvexYuS5NvEPKt tMclAsG1h3N2Ta6DF1UT FfqwM2CCSSFNFHrtpOD+ YU35nn85K9IbVttfPoy8 DSFhBTY7dGX6fQ0a FBTfNUdid1X6uAV8X7Hs nsRgjz6tu6rtWUIpYOlo L00csVPts5G6XNUqyIE2 OCRpdBmzKuUjpD61 Oyc+DJCzdNnoy4UiDsaj j4qvq7wqyGj9PetlCBCp gkDrkRhjOUC5e8DpTb3i VTNfrGB9hXN5kO9s PyDwFwB2IYfjH093XsJp tKAcIlkmY15qZ8BbiBV+ GSOrExk5TJBfgRuhXI9i E4LaSSJgftwpjGQc nYvxGH1wQRAzsskeGRMp eY9uVOVqS5s1DdGcCmG5 LWuzZ3GvNZYlhpypEn37 rG9ePsOyOjQ0NXjw P5EzrhM8DMUhgSZqHArr JRX6T45cj9W6YYGrWLKm ENL3eJK4gR8nmSpbundp bGVmdDsgdmVydGlj GYklKZrjX895QTMnySnz PkNvZGluZyBEYXRlOiAg MDIvMTIvMjAyNDwvdGQ+ SGYhPVH9aHazVOEf pBXkXYonPx6qbVkpbBtl ZT5aFRJnljgdVAYpgO3u SVEzyEMfaDnfKX2lPBYz yyrbs754SkEyEAA6 GCBdpPFhJ1EvgV5bLzTx DAUjRDRlD5ZizCVqHPjx A642NCxlGtW9LZZkfgZs J6NpRGJteDudEmN4 i7I7Zp6Us6JmsiogR5Vz pHHrOpZmQdkbCQf5T8Dr PjwvdHI+VS43PQAuVR69 KEg2XXB0kAzoPPlw AWGhH2MscY4zSeVgGHWr ZGRkOyc+PHRhYmxlIHdp ZHRoPScxMDAlJyBzdHls PN1gZn3zZGRdAKQb mJqahDUfYmCcm6yjWCOj FXocUX0dqIztM0HuuZS5 KMLzd9c4Jf42B87fG6Oc dXA+BFTwyNS5hLB8 hQ8zQhFvPfZ4VYnpB951 UmIfvLMiSokzt1cfg2fr sYe2ZfE6HGPawhVngBqm SVT2l9XoYx45B49k IHdpZHRoPSIxNSUiIHZh iIkcub8atD8kQx2+PGNv nJP8nTJ8iS9vGiIcCzQ2 OXujO822QjDalOSi Dchuc7nmb7aiaGn5EcXr XYVmmwJldXoxHKJ7s4Vu Ge82B8UofUpwa2OmKde1 gm93wTEvg0X3zHT1 R6RnZEOzjjmvvMKttQuh NE0bVCWmsfeoLIAxxU1u EMJmP0u4XlUzPtT7HVrk A5FaxoP9QYBemTUu ODZbhVETzF7ubqvgw5bd wspeGbWwPGQcTKn1DLg2 PNGolTtfEoLdOAU6OtD6 VWB8oEBldF1saZfd tdnonL7qAvv+KXZ8rUCo rLPNLR5qEtkxbSF+PHRk IDN8zLxnWOlsNOFacK9h DITyK5c6CnOaSnT5 XWokO8QtyyL2IWSksUVp BCVldKQNiV9tngmqu2ow ihlyHoTcAZXnPFi6PWy3 LWFsaWduOiBsZWZ0 TeB2OUX2mOWahQ7jlYyv cussyO0qOnk+QmlydGgg WJQ4VAt8D0ZmHls7IUUx nHqbWQ3btFHfSBnv Pr4goPikuYjjBG0rXOJr dyrua233ZzBcx4voGBZh hVTsBBjkDEP2L30uo8G3 MMEiSTHnTPA4xBF7 hO1ukNkuimqsoGHfpDow poYejHdpFCfdQBjkZ553 SCEukBvhDgBuGLg0Y5Cv Dme5NEVxpZcbDK5j bWPaAGzySo8taBaztGtp VG9fYJJeyiwho488MzWh s5yjBHXliWTtAAiwKRF7 F92vv1F4FCGqTSTq LOB3wXD1fE2qbZshwrlz bGVmdDsgdmVydGljYWwt JFuwU341NPJloDioYiYy dFf5A9ZqHyn0UXTf rYdrVZ3wlWYrDWdtGd4z zVgrvJbjBF0kOJSdgbin d625NpWbr0sbJDWpxHHj MKnxACS7B33vs9V3 CENaQMRjACX1vSX4bA6x bGlnbjogbGVmdDsgdmVy bCjoPMrkEAgpZ363QWSk cDsnPlBhdGllbnQg USoyUIe4H9YwNokmsIJ+ WD25LPRrCF86qCMbwGAk z6nscIa6OkHlSXZfGMX5 rSorRQkom8CzAKTp I76roTCat9H5QUBcvMmi gKRqWwIuqEV4xY1iXJzf dsbzp2tajrktVviqd0vq rl61xY57Q04zXOjh ZHRoPSIzMCUiIHZhbGln ti3sdF9vKe9+PGNvbCB3 oJD1qP1yFYWdEaR5SIax H983AaRnoQTiGzse f0ipy5euiAy6CeM7XYCi xyJhqLlbWLY1z6EwJr73 T31vXBbxOMDzXPEdTLEe VGPuxFdfvf6jlC6h Ii8+SFBsfKC6sMB6zY7t FaWgFpS7MFynF065OkJv jRFyTidfS23eP8PxpMG+ FMWkQiz3YBQmyKqe CK3zvDVmGQhpWo2jOKY3 MiQqRyStGMtkD5YbDSGg mdcmdlpioUL9GVVfNNEu yZ27Pu8lwFwnNVHl aDDOgI1enzoca9njmhlf TnPlZDSuEYl7JRq8KRFb nLruQpJhAPS2VvK4MIQ9 vBRhoR0muTspvhox tV7fN2OfJZDxbxwzPy18 mX6fTgQaQmJ4SIdkAsh+ G9tWQmUMPBifD8nZEQXK DTwRUT2CLNukwUH+ VUEhVRI2jUjeYDdiKNAx hN7gUYQwX2b3FlToTpT4 PSphG3OxPBFppqnmPu22 cG4eWiFxWgW6TUiz O5QrqzQ2CFHhvRBkVGpb IMI0C01cc2H7BNXcBENn QDF4zDV9qJ6fgQwzphxu bGVmdDsgdmVydGlj HVioKBdzA003YHWjbDpd RgL4BdTcXyFeESW1C2Qy Eqf2YAVphQxfNG5izGKk LIxhQm9kdNogeTrt KZ3dBPYvthvtASJnrY8r WJGqtLXbfIpuKT4eBQSs norkb518VdTbPOD8OEAq kLBmQ0DkjK8fWsFd JGEjFCMmE7DqjYXmPYoi G026RRfqEiB8EZFtddJi F8LxEKBftRceAjI7g7C3 Tm3mFTRCORCwdeup dGQ+XMVdOJR4lGaiRLlc CZVjyQ6nXNEvK6c5OhPf WaX5LWnxI3GlAZOhogmk Go40hN3gCrNnUgK3 HYwkG0HxaeS3HMCpmZVp CMsiJOD3Q03xv2T4NAUv MJWiWWP6fVC4pU3gvMiz bjogbGVmdDsgdmVy sBleULcfEThzA188ZPSq cDsnPkZFTUFMRTwvdGQ+ OCNlRHD2zLsyRNyqSCZj tT9tZBUaG1w8AaNi UzX0CKdvW1PzRGJkocfv Er41qN8aWrVuWeG5DUix J1XtzmO1OMRjuHIyVCmw JAL9I13id8Q3NSNl NELqBHW6yWL5zC8ybVlo bjogbGVmdDsgdmVydGlj MEiaAPeoB178TDNvcIyl TaNmYWNoZC3tkRtc dGQ+KC84ho84S5EgAmzo Xjp7COBgSRM4sHS9vV8e VTYoTPdwn6E8vZV6O3Mh gqTogt6pf9tpEMPq JDezS66hvQSly3M4OMPo pZJ3SVKyjMrnRtGftW12 Oyc+WSSbyHjip3PdLocu y0djl1dqbAo0YmCt GLJzpwXtdWuoDVT0s1Pc Pa40B15aYBelTCViVAGl TQIrBZXjjNgyoz1gyS4w Ii8+IRYwbNK3eKC2 aP9lSmOfBuM6DErhT433 UyOnlTBzGhgfn0rod9lk jEh3IxQyRCRwofXbxQyq IPI6s0AfVj37W8Dz xKvid9SfYhn7en15iDXl p7T3nIG9G6JpYGHkpbja dRIccCxdII7vWMVyyydx XCFkhW7kZTWqC9g4 ZdAnGyF5GWfuX8SdwjB2 TZHnvDCqPFCjgIYXrY4s lvzev8stcffnHnGtVSOg KNs1XUz9ZIQbvIcy DrPmHOA5YrY9NZR9vURm jT1kuXwfhjphdR4rYyx+ TCo5x5khlKKyEP0quWQ0 JG16AH81lTIrl3X0 oSQ6S3UgMKRbplckkvie eFG3YAYiBSTmaE55Fp7x kCizCt0jELNqVFB7NHDy rKKoD8NzfQ8yDzJc MAPcLSYsW8TerKHtDUyh G211DQonKqY8PGYdnrIs M0MoYFLncGriFzF2i3I2 Cf7FIV11BH82NL53 pAYpk8U6pNI2O5ToHVPj mfcyeigxvGG0RKBhAAQw fH53Mu3inMpqSm3nDUEa HGP7FTRawKJvE6Qb lP8qJgWjBPDbGVGcV7Jt sQCfFAgiN146ZUvcRwO8 UVHsxuLiK4GeTJObhOah MbW0l0N5Pg1EQh62 OI25VO86yRZvo4W6aLH8 X1RcLNGsouvczxrmjVX4 DJEzNGQjmT71Di0baJhv Gn4wGZJnEZJ1HEOs qBFvA2HevJ3cHvMdTEQs FSWdY2BxdJRlSTmvH974 SRdwZeZ0CWDkztMsC7Br UCEetQrxLcJ3t1R3 Mo0OTInezct8A6OeOuxu dHI+YL32CPXbAQ30jKNg iOSww0gbiSz4GyYhRSBj WWT7fLllNUogt5Vd ZXI (more content not included)... Normal [facility] C Urineon 05-18-2023 C Urine Urine Culture ordered as a result of parameters set on specific urine dip and urine microsopic results. 15,000 cfu/ml Corynebacterium species (DIPTHEROIDS) Normal skin jonny isolated Normal [facility] Comment on above: Performed By: #### 5 [id number], [id number], [id number] ####[facility] (DEFAULT)[address] [place] [address] ALL CBC WITH AUTO DIFFon BASOPHILS ABSOLUTE AUTO 0.0 [facility] Basophils/100 WBC (Bld) 0.3 % 0.2 - 2.0 % [facility] Eosinophils/100 WBC (Bld) 0.5 % Low 0.9 - 7.0 % [facility] Erythrocyte distribution width (RBC) [Ratio] 12.2 % 11.0 - 15.0 % [facility] Hematocrit (Bld) [Volume fraction] 38.6 % 36.0 - 48.0 % [facility] Hemoglobin (Bld) [Mass/Vol] 12.3 g/dL 12.0 - 16.0 g/dL [facility] IMMATURE GRANULOCYTES ABS AUTO 0.02 [facility] Immature granulocytes/100 WBC (Bld) 0.2 % 0.0 - 0.5 % [facility] Interpretation and review of laboratory results Abnormal [facility] LYMPHOCYTES ABSOLUTE AUTO 3.1 [facility] Lymphocytes/100 WBC (Bld) 32.8 % 20.5 - 60.0 % [facility] MCH (RBC) [Entitic mass] 28.6 pg 26.7 - 34.0 pg [facility] MCHC (RBC) [Mass/Vol] 31.9 g/dL 29.9 - 35.2 g/dL [facility] MCV (RBC) [Entitic vol] 89.8 fL 81.0 - 99.0 fL [facility] MONOCYTES ABSOLUTE AUTO 0.7 [facility] Monocytes/100 WBC (Bld) 7.7 % 1.7 - 12.0 % [facility] NEUTROPHILS ABSOLUTE AUTO 5.4 [facility] Neutrophils/100 WBC (Bld) 58.5 % 43.0 - 75.0 % [facility] Platelet mean volume (Bld) [Entitic vol] 10.7 fL 9.5 - 13.5 fL [facility] TBH EO # 0.1 [facility]H PLT 211 [facility] RBC 4.30 [facility] WBC 9.3 [facility] .Auto Diff 1on 05-15-2023 Auto [place] % 8 % Normal 1-12 [facility] Comment on above: Performed By: #### 1 [id number], [id number], [id number], [id number] #### [facility] (DEFAULT) [address] [place] [address]87 Baso Abs# 0.1 x10 Normal 0.0-0.2 [facility] Comment on above: Performed By: #### 1 [id number], [id number], [id number], [id number] #### [facility] (DEFAULT) [address] [place] [address] 17132 Basophils/100 WBC (Bld) 1.0 % Normal 0.2-2.0 [facility] Comment on above: Performed By: #### 1 [id number], [id number], 1115102, [id number] #### [facility] (DEFAULT) [address] [place] [address] 07110 Eos Abs# 0.0 x10 Normal 0.0-0.4 [facility] Comment on above: Performed By: #### 1 [id number], [id number], 7222503, [id number] #### [facility] (DEFAULT) [address] [place] [address] 68219 Eosinophils/100 WBC (Bld) 0.2 % Low 0.9-4.0 [facility] Comment on above: Performed By: #### 1 [id number], [id number], [id number], [id number] #### [facility] (DEFAULT) [address] [place] [address] 75620 Lymph Abs# 2.6 x10 Normal 1.3-2.9 [facility] Comment on above: Performed By: #### 1 [id number], [id number], 1182964, [id number] #### [facility] (DEFAULT) [address] [place] [address] 42099 Lymphocytes/100 WBC (Bld) 25 % Normal 14-48 [facility] Comment on above: Performed By: #### 1 [id number], 67388660, 8786435, [id number] #### [facility] (DEFAULT) [address] [place] [address] [place] Abs# 0.9 x10 High 0.0-0.8 [facility] Comment on above: Performed By: #### 1 [id number], 37847825, 3721304, [id number] #### [facility] (DEFAULT) [address] [place] [address] Neut Abs# 6.6 x10 Normal 1.5-9.2 [facility] Comment on above: Performed By: #### 1 [id number], 31889904, 6471553, [id number] #### [facility] (DEFAULT) [address] [place] [address] Neutrophils/100 WBC (Bld) 65 % Normal 44-88 [facility] Comment on above: Performed By: #### 1 [id number], 49360937, 6798849, [id number] #### [facility] (DEFAULT) [address] [place] [address] BMP Standardon 05-15-2023 eGFR Non AA >60 Invalid Interpretation Code [facility] Comment on above: Performed By: #### 1 [id number], [id number], 3099132, [id number] #### [facility] (DEFAULT) [address] [place] [address] eGFR AA >60 Invalid Interpretation Code [facility] Comment on above: Performed By: #### 1 [id number], [id number], 5271527, [id number] #### [facility] (DEFAULT) [address] [place] [address] 88609 Anion gap [Moles/Vol] 15.2 mmol/L Normal 5.0-19.0 [facility] Comment on above: Performed By: #### 1 [id number], 51517428, 9814922, [id number] #### [facility] (DEFAULT) [address] [place] [address] 53114 Calcium [Mass/Vol] 9.2 mg/dL Normal 8.9-10.[address] [facility] Comment on above: Performed By: #### 1 [id number], [id number], 9484958, [id number] #### [facility] (DEFAULT) [address] [place] [address] 06664 Chloride [Moles/Vol] 106 mmol/L Normal 101-111 [facility] Comment on above: Performed By: #### 1 [id number], 17970203, 5892007, [id number] #### [facility] (DEFAULT) [address] [place] [address] 52879 CO2 [Moles/Vol] 17 mmol/L Low 21-32 [facility] Comment on above: Performed By: #### 1 [id number], 94047604, 9049126, [id number] #### [facility] (DEFAULT) [address] [place] [address] 71063 Creatinine [Mass/Vol] 0.55 mg/dL Low 0.60-1.30 [facility] Comment on above: Performed By: #### 1 [id number], 72848836, 4775508, [id number] #### [facility] (DEFAULT) [address] [place] [address] 68367 Glucose [Mass/Vol] 75.0 mg/dL Normal 74.0-118.[address] [facility] Comment on above: Performed By: #### 1 [id number], 35342164, 1697837, [id number] #### [facility] (DEFAULT) [address] [place] [address] 20935 Osmolality 266 mOsm/L Invalid Interpretation Code [facility] Comment on above: Performed By: #### 1 [id number], 23440519, 4773348, [id number] #### [facility] (DEFAULT) [address] [place] [address] 26227 Potassium [Moles/Vol] 4.2 mmol/L Normal 3.6-5.1 [facility] Comment on above: Performed By: #### 1 [id number], 18242919, 6124894, [id number] #### [facility] (DEFAULT) [address] [place] [address] Sodium [Moles/Vol] 134.0 mmol/L Low 136.0-144.0 [facility] Comment on above: Performed By: #### 1 [id number], 10090444, 3624018, [id number] #### [facility] (DEFAULT) [address] [place] [address] Urea nitrogen [Mass/Vol] 9 mg/dL Normal 8-26 [facility] Comment on above: Performed By: #### 1 [id number], 00839851, 3924553, [id number] #### [facility] (DEFAULT) [address] [place] [address] Urea nitrogen/Creatinine [Mass ratio] 16.3 mg/mg High 4.6-16.2 [facility] Comment on above: Performed By: #### 1 [id number], 58232802, 9430436, [id number] #### [facility] (DEFAULT) [address] [place] [address] Breakpoint Chem Normal [facility] Comment on above: Performed By: #### 1 [id number], 49308656, 8215970, 9615784555 #### [facility] (DEFAULT) [address] [place] [address] CBC w/ Auto Diffon 4 Erythrocyte distribution width (RBC) [Ratio] 12.9 % Normal 11.5-15.0 [facility] Comment on above: Performed By: #### 1 [id number], 87860533, 4724272, [id number] #### [facility] (DEFAULT) [address] [place] [address] Hematocrit (Bld) [Volume fraction] 39.2 % Normal 33.7-40.4 [facility] Comment on above: Performed By: #### 1 [id number], 60466491, 8220882, [id number] #### [facility] (DEFAULT) [address] [place] [address] Hemoglobin (Bld) [Mass/Vol] 13.4 g/dL Normal 11.3-15.9 [facility] Comment on above: Performed By: #### 1 [id number], 29180687, 5849668, [id number] #### [facility] (DEFAULT) [address] [place] [address] Man Diff? RBC Morph Only Invalid Interpretation Code [facility] Comment on above: Performed By: #### 1 [id number], 61967070, 5274553, [id number] #### [facility] (DEFAULT) [address] [place] [address] MCH (RBC) [Entitic mass] 29 pg Normal 24-34 [facility] Comment on above: Performed By: #### 1 [id number], 26246482, 5397380, [id number] #### [facility] (DEFAULT) [address] [place] [address] MCHC (RBC) [Mass/Vol] 34 g/dL Normal 26-37 [facility] Comment on above: Performed By: #### 1 [id number], 25768539, 8408682, [id number] #### [facility] (DEFAULT) [address] [place] [address] MCV (RBC) [Entitic vol] 84 fL Normal 81-100 [facility] Comment on above: Performed By: #### 1 [id number], 19233380, 0416829, [id number] #### [facility] (DEFAULT) [address] [place] [address] Platelet 228 x10 Normal 138-427 [facility] Comment on above: Performed By: #### 1 [id number], 86291256, 9986447, [id number] #### [facility] (DEFAULT) [address] [place] [address] Platelet mean volume (Bld) [Entitic vol] 8.7 fL Normal 6.3-10.2 [facility] Comment on above: Performed By: #### 1 [id number], 58205006, 2920109, [id number] #### [facility] (DEFAULT) [address] [place] [address] 69260 RBC 4.66 x10 Normal 3.70-5.30 [facility] Comment on above: Performed By: #### 1 [id number], 01037213, 4636453, [id number] #### [facility] (DEFAULT) [address] [place] [address] 98999 WBC 10.1 x10 Normal 3.5-10.5 [facility] Comment on above: Performed By: #### 1 [id number], 62273872, 2766414, [id number] #### [facility] (DEFAULT) [address] [place] [address] 35751 ED Clinical Summaryon 2023 ED Clinical Summary [facility] - Emergency Department [address] [place], [place] [address] ED Clinical Summary PERSON INFORMATION Name: LIA DESAI Age: 22 Years Sex: FEMALE : 2000 MRN: Acct#: Visit Reason: Vomiting - ; 10 WEEKS , NAUSEA, VOMITING Arrival: 05/15/2023 13:59:38 Discharge: 05/15/2023 19:41:00 LOS: 000 05:42 Check In: 05/15/2023 13:59:38 Checkout:05/15/2023 19:41:00 Address: [address] [place] [address] PCP: ROBERT MARRERO PROVIDER INFORMATION Provider Role Assigned Unassigned Joelle Nava HVAC/R INSTRUCTOR Nurse 05/15/2023 15:05:55 Mamie Moore MD ED Provider 05/15/2023 15:56:16 Chrissy Diego HVAC/R INSTRUCTOR Nurse 05/15/2023 19:19:53 VITALS INFORMATION Vital Sign [...] With: Address: When: ROBERT MARRERO [address] [id number] Business (1) Within 3 to 5 days With: Address: When: Follow up with specialist Within 3 to 5 days Comments: Your FUR TINTER DIAGNOSIS: 1:Hyperemesis of Patient Understands: Yes - Patient/family/careg iver verbalizes understanding of instructions given Comment: [facility] ED Note-Nursingon 05-15-2023 ED Note-Nursing PT. C/O nausea and vomiting. PT. is 10 weeks with her first child. PT. has prescribed Zofran but has been out of it for 1 week. Pt. is scheduled for a Zofran pump. Pt. states that she has not been able to keep any foods or fluids down. Pt. is A&O X4. PT. has a steady gait. [facility] ED Patient Summaryon 024 ED Patient Summary [facility] - Emergency Department [address] [place] [address] PATIENT DISCHARGE INSTRUCTIONS Patient Information Name: LIA DESAI Age: 22 Years Date of : 2000 Reason For Visit: Vomiting - ; 10 WEEKS , NAUSEA, VOMITING Arrival Time: 05/15/2023 13:59:38 Primary Care Physician: ROBERT MARRERO Attending Physician: Mamie Moore MD Comment: Visit Diagnosis: Diagnoses This Visit Hyperemesis of (O21.0) Vomiting - ([id number]) The Pharmacy at [facility] is open Saturday through Saturday from 9A [...] alcohol and/or drug addiction problems; contact the [facility] 29/10 Crisis Hotline -Text 2HYQP kd [phone]. If you received any narcotics, sedation, or [...] legal documents With: Address: When: ROBERT MARRERO [address] [place], [place] [id number] Business (1) Within 3 to 5 days With: Address: When: Follow up with specialist Within 3 to 5 days Comments: Your FUR TINTER Medication Information: The exam and treatment you received today in the [facility] Emergency Department were for an urgent problem and are not intended as complete care. It is important for you to follow up with a doctor, nurse practitioner, or physician?s promotions assistant for ongoing care. If your symptoms [...] so we can reach you if necessary. [facility] Department has provided you with a complete list of medications post discharge. Please inform your marketing communications coordinator/provider of your visit and for further instruction on these medications. Any specific questions regarding your chronic medications and dosages should be discussed with your primary care physician(s) and/or pharmacist. Medications That Were Updated - Follow Below Instructions [facility] [place], [place] [id number], [phone] Updated: ondansetron (ondansetron 4 mg oral tablet, [...] drinking abad (more content not included)... Normal [facility] Morphologyon 05-15-2023 RBC morphology finding Nom (Bld) Normal Normal [facility] Comment on above: Order Comment: Order added by Discern. Result Comment: some platelet clumping observed Performed By: #### 1 [id number], [id number], [id number], [id number] #### [facility] (DEFAULT) [address] [place] [address] UA Biaun4ux 05-15-2023 UA Amorph. 1+ [facility] Comment on above: Order Comment: Urina lysis Microscopic order added on by Discern Expert Rules system. Performed By: #### 5 [id number], [id number], [id number] ####[facility] (DEFAULT)[address] [place] [address] UA Bacteria 1+ [facility] Comment on above: Order Comment: Urina lysis Microscopic order added on by Discern Expert Rules system. Performed By: #### 5 [id number], [id number], [id number] ####[facility] (DEFAULT)[address] [place] [address] UA Mucous 1+ [facility] Comment on above: Order Comment: Urina lysis Microscopic order added on by Discern Expert Rules system. Performed By: #### 5 [id number], [id number], [id number] ####[facility] (DEFAULT)[address] [place] [address] UA RBC 3-5 [facility] Comment on above: Order Comment: Urina lysis Microscopic order added on by Wannyi Expert Rules system. Performed By: #### 5 [id number], [id number], [id number] ####[facility] (DEFAULT)[address] [place] [address] UA Squam Epi Moderate [facility] Comment on above: Order Comment: Urina lysis Microscopic order added on by Wannyi Expert Rules system. Performed By: #### 5 [id number], [id number], [id number] ####[facility] (DEFAULT)[address] [place] [address] UA WBC 5-10 [facility] Comment on above: Order Comment: Urina lysis Microscopic order added on by Wannyi Expert Rules system. Performed By: #### 5 [id number], [id number], [id number] ####[facility] (DEFAULT)[address] [place] [address] UA w Culture if Ind Standard on 05-15-2023 Breakpoint UA [facility] Comment on above: Performed By: #### 5 [id number], [id number], [id number] ####[facility] (DEFAULT)[address] [place] [address] Color (U) Yellow Normal [facility] Comment on above: Performed By: #### 5 [id number], [id number], [id number] ####[facility] (DEFAULT)[address] [place] [address] 02505 Culture? Indicated Invalid Interpretation Code [facility] Comment on above: Result Comment: Resu lt created by rule GL_MAGR_ADD_UA_CULT Result created by rule GL_MAGR_ADD_UA_CULT Result created by rule GL_MAGR_ADD_UA_CULT1 Result created by rule GL_MAGR_ADD_UA_CULT Performed By: #### 5 [id number], [id number], [id number] ####[facility] (DEFAULT)[address] [place] [address] 48380 Glucose (U) [Mass/Vol] Negative Normal [facility] Comment on above: Performed By: #### 5 [id number], [id number], [id number] ####[facility] (DEFAULT)[address] [place] [address] 54074 Ketones Ql (U) >=80 Normal [facility] Comment on above: Performed By: #### 5 [id number], [id number], [id number] ####[facility] (DEFAULT)[address] [place] [address] 84284 Micro? Indicated Invalid Interpretation Code [facility] Comment on above: Result Comment: Resu lt created by rule GL_MAGR_ADD_UA_MICRO Performed By: #### 5 [id number], [id number], [id number] ####[facility] (DEFAULT)[address] [place] [address] 89739 UA Bilirubin MODERATE Abnormal [facility] Comment on above: Performed By: #### 5 [id number], [id number], [id number] ####[facility] (DEFAULT)[address] [place] [address] 11716 UA Blood Negative Normal NEGATIVE [facility] Comment on above: Performed By: #### 5 [id number], [id number], [id number] ####[facility] (DEFAULT)[address] [place] [address] 19516 UA Clarity SL CLOUDY Abnormal CLEAR [facility] Comment on above: Performed By: #### 5 [id number], [id number], [id number] ####[facility] (DEFAULT)[address] [place] [address] 30606 UA Leuk Est Negative Normal NEGATIVE [facility] Comment on above: Performed By: #### 5 [id number], [id number], [id number] ####[facility] (DEFAULT)[address] [place] [address] 05092 UA Nitrite Negative Normal NEGATIVE [facility] Comment on above: Performed By: #### 5 [id number], [id number], [id number] ####[facility] (DEFAULT)[address] [place] [address] 38814 UA pH 6.5 Normal 5-8 [facility] Comment on above: Performed By: #### 5 [id number], [id number], [id number] ####[facility] (DEFAULT)[address] [place] [address] 26017 UA Protein 30 Abnormal NEGATIVE [facility] Comment on above: Performed By: #### 5 [id number], [id number], [id number] ####[facility] (DEFAULT)[address] [place] [address] 47672 UA Spec Grav >=1.030 Normal 1.001-1.035 [facility] Comment on above: Performed By: #### 5 [id number], [id number], [id number] ####[facility] (DEFAULT)[address] [place] [address] 50093 UA Urobilinogen 1.0 mg/dL Normal 0.2-1.0 [facility] Comment on above: Performed By: #### 5 [id number], [id number], [id number] ####[facility] (DEFAULT)[address] [place] [address] 24702 Urine Source Clean Catch Normal [facility] Comment on above: Performed By: #### 5 [id number], [id number], [id number] ####[facility] (DEFAULT)[address] [place] [address] hCG Quantitativeon hCG Quantitative 640501.0 mIU/mL High 0.0-0.6 [facility] Comment on above: Performed By: #### 1 [id number], [id number], [id number], [id number] #### [facility] (DEFAULT) [address] [place] [address] Coding Summaryon 05-02-2023 Coding Summary HTMLBase 64 NpnkdhcoOTp3jUg+PGhl YWQ+VF2SMGYwL71xdQWt aG5xS3TOLBkQKweyOKNW QEnQVwRrbpUjVM0peQNn ZXJu IC8+DO2pHBThTweswGBc h9E2zWT6Z74mqq7cRSis qYG4MRZsZhUsfzcsu6rk dWj1PKosVswtIdPo ABWseV51ZCP8yK83Yg06 rNAgdHKyo2bofXl5LpFn AOYgTLD1cPncUYixk0Hw NHTqQ36vjUQoc9P5 IGNvbGxhcHNlOyBlbXB0 mN4wDWbpufdcv8hbthnv Vgp2zl93uBAsy7P7sEA2 Z6VszkO7QJBycYJo LwakfBFBuD2uvbzrj7pp indcXnRmZSGhWFb6QNq1 KQTjsYsyBmVaUX63CBY5 IEIpnzNvF6EdVZUf nZkvFaS5p9U3Jj0WA1EX CwezS6JNECSQEBzyqLW+ KK81gn27M4XeRcrfOpk8 JUVmKJG6wFI1lB1r WWCfEYfve8R8mJX7S5Fa pgPibh2le9jkIIFtLQjy T55juXDkl6V6CGAgfUK5 ZISzmCdpMdZnwF49 Oyc+ADAirKtwm1NfKlul f4txr2txgHy3BbwjIONo gvGcdNedZYE6m4RwFd5r JHEoeGT3dTT8iW8e EfXaSmO6KKvaY844LuFd dHWqLrtuE37cI2OlbHT+ TBLrTem8EYGzmGwyNW5j S3FdOTEwekbfkBBu wZwdXE7bUCGfvhtcYHOh bX9dAMEnX0u9JyYxHxA0 IAquJ2McVJXrebvbCd06 yI7rBuTsInI3BYqk S3ZhwdI6IXNaiOEoSErx EKZ2I99ng6M1MPZlPNEh IAZ0ySE5uX4viIbsnnuu bGVmdDsgdmVydGlj JIbkWDapQ629HOGtuCuq PkNvZGluZyBEYXRlOiAg MDEvMjUvMjAyNDwvdGQ+ OCMvLVM8nEyfLNLg vBOuVMdvEd8vuRuivYhc VY7wHOKdzhnxVMQmtA5j NRVnsXMpyHqsBN8xEEMf gvhnb099WwEoLBA6 WRBypWNzB3DgtN0zMsGs XTRwAZRcD9NdwIHtAYhh Q360CQgfUlL6HQWhwwIk P5SmBLWwkSssMeK6 o3B3Pw1Fa7IvqurnP4Ds jWVqUyDgTpstTTs3A3Jv PjwvdHI+YH81KSFlAH99 QEr2CTU1aFnkZPxm CWFcP4MauI2gCwIjWPPj ZGRkOyc+PHRhYmxlIHdp ZHRoPScxMDAlJyBzdHls EV0xVc9pYJNfCUYi uYnjkWYiXzIiw5azLOXl ESbiNH5jmAaaA4BzoAS1 JGRxj5v3Wh30V62fS3Mx dXA+BLWhiAM6zOO8 sM6nNaFzQsA0OIcxM429 NuFyiFBfIwqvn3lde5bw aPy9RpQ5VFPhdiNqkQvv GSK1e5GkTh43E93d IHdpZHRoPSIxNSUiIHZh uWimtl1wkT7wBq4+PGNv uKK5cOX5uI9sNzJzUuB8 ONjwX866WvZgjVZz Uaqhq1rjc3bchDk8OtZg VPMiejSozDpxCMP0p8Db Hr70N8MrvJpya1DeLgh6 bh19wMKoe1X6dOE4 E7ElTCUbrewblPPkyEor ID2kKMSfaulvBCJwoJ3c XWArD0b7JwDwUsX4MNsn T9RynwU2OAAceLBc LGDyhKHYaA2bueygy1oi yiuwGmHrQOVuJPr7ULc1 CKPelRkrMxAiIMY2ApS4 MBK4yDNdkB9kcSwt vsufjM5oJgn+SAM6cYBy rEFAWU2nYifhoVS+PHRk BLV6mXtiNBokCXUuaY9y QQJdY1j6AcJtVtG6 QGajC4KorfG6QJNlrUQl MRYllMFPuD0jmjjmb3su jftxHbKkFAEtEMl4FLi3 LWFsaWduOiBsZWZ0 UaB2OXV2kTCxuZ6dyLjs klcvgK4zGsl+QmlydGgg BPU3AQx6U2AuFhf8DGEn mRqvPG7edLMcORgx Zs0yjNzcePelWN4aLPBh uafjm660JmZvb8rmBOQf qLXmPJorBEH5H00ds2M0 WDCpYCLmQOX9hQV7 nA4jdIzqmoumbUOomQdi jtBhnYvhPBkySQgtC367 LEXceAkkOiKsLIu3R5Tq Pbo1UYYgmUbhUU3v jUBzBXjlFs3gyOqqbFyp EO3oKQRqwvfcd968IbJx d4qtBOXggRAyFMebILY9 L01nm6Z0IJSiQDJn TCL3sVY9iC7wxDfnpchc bGVmdDsgdmVydGljYWwt VVmuB610YZFphUuyDbAr aTd4C9DtAmm0PXYm tCrxFB4zdRHwUEtnVi1l aGgirQwhQF7eUCMykfkb u921PgEub5vvEDJsnIKf LArpZTG3C81zw6S8 RZSmCMFdAPC8hKS3zR7t bGlnbjogbGVmdDsgdmVy cJzfFCljJQxhW203KCJb cDsnPlBhdGllbnQg NIujCIo3Z2YbWndwcNM+ FW64FRByPE97xFLsoJDf u4cbtBj1HoOgMSLeTAY3 dHosCZjue7MsGAFd V04gwEQqg4J4KSRswEsb yETfTpMejVC0zH1yHNyn rcnpa0pghkqxYtjuy4ze he79lY37M30rEYid ZHRoPSIzMCUiIHZhbGln ea5wuA4pYm6+PGNvbCB3 oTX6rL4nGVVgCkF7BQyk A851ToFnyHCfUflx g2pky8wgcEz3FtC7BSOw mrVvwVqwTKT9d4OzXn19 Y54gUAamVBEnSGIyONUp IJQbvGwdxi6qfU6j Ii8+ZYJgjRB5qVY7bC2v BaGsMqX2CZheB993AfUy yXZsUbqbK34qS1LayED+ SDJjXad5RUXplVkn EW9qyGGiVUmkMj0sCWE3 DoAoAkZsRKcnM3PfTGCz nihhvryhpYT4NVKbHVWv sQ07Uv9vgDhqMUPh mIEFsA2csutkj2jnbgpj UmXkCSOaLWp2NSm7FQAd tRfhUfGwAMV9OjO6KXA8 fOPsbM5szTxjlehh pS1mS9ZqVPVouhjaOi93 dP5bVnKuBrG1LWnqVyx+ K5tQJgIWUCplE2zBCZUC GUlBJF6PNNjsmYY+ MHRrFZD3tLvqMSznJYUr vJ4dLMHuC3a7YeUcGpR5 HYbrX3UzKVGgcywpHk92 gS1dUkYaXtG5JDzj W1KldgT4ZCYftCHzGGcn AFV4X11ig1P1IXSnDKXr OGE0hGY0wU9rzCzsrlyd bGVmdDsgdmVydGlj KNabRWslR694XCHvtFko SeZ5KyBpKeZyREB5L7Yp Inm8GBCwiMuwCC3xhVAi XBveXy2frUerzTpv YS2rSUThjjwrUKCboZ9r FAWsyBAlrVgvFM5kIULj yxzri309AkPtAVX4STGo kIUcK5PwiP5qBoOy WNSsDZRuD7KndKHiEVau H758MXspEgO2FZKnsiKb P8IrQIBfbNroKyA8m3Z7 Ug2eWEYNWSFdouvl dGQ+STTeTVA9qGnuBCrl ATAmgU7qPERmM7z6SxWh TqH4LYrzJ3XuMFNvewbr Js69oX8pKqUwFxC7 BWrwI1GpukU3PNDezQAt BLmoYVV1N00ns8H4QNBv VOTjQTM6gOF7yF2djBuz bjogbGVmdDsgdmVy hTxfKQwaLMhjQ619BPJw cDsnPkZFTUFMRTwvdGQ+ HJHnGSN7pErfFQopFWTk uK6lYTKxM4s4ZvZh SzT6QAiqN0JnZZJylzqk Vl68xR9eFhGcBsH7CIbd E7FpoyY0DVGmkFZnTCbv TQA4Z67om1E9UGGc MNArBJD1kPL1xR9heVmy bjogbGVmdDsgdmVydGlj HReeTIjbL053DKUpsGxl BgIqZILjPO5dcSrg dGQ+OQ78bk66H2HrFjpl Nsp6TBVlMEJ2aJL8lJ9t EBSwMMvkd1W2sVG2Z2Gv ajYdre8cb9dpSNSz KGtpF62mxFRwu9S8LOHm sBC3BGDpfHdnXsIejA36 Oyc+ZCQshKalu5WiUhdc t3sbc7gnaZk1LkYi KLJlebPvnTpoNCH4t8Em Mb11E13oFPdlEXOoBGHl ZWFfGTLesCpmgc9ivY8k Ii8+PCTvwXG8yAN9 mT5zFmCkGbA4SIwmY403 ZsNqlLNfTvula8apf4du vHu5QuQoHPUefzJdmBbs XRW0s2RtIa19V9Li kAnxz2CyHha9di27lJTh r8Q0qVB3H4ZyPMBjarnh cXElkDafDB8cKWJcrcop FSBnoQ3oXWCrX2o4 AjIiXvT9ZRumM8YmeqB4 ARLbnSKxIJKxvWXJyH1l zifze0jqyparJxDbQWTp SOk7DBt2HSXslQhe XeTtZDK9UlJ1XNN3rHFj qL7suLqwolyhbJ2yTnv+ TUx1o7weoOTtGV8hiII9 CX82PH17iZVpi5U7 kXD7P0KiKWWpflbficlv zNF4ZQIdYWKpmS48Wk8v iEwjLz5zXYSkUAP4ZEIz aGRyH6OghM3dJiCi YRXcKABjG2AnuFJxHNxd T264RXmkWeA4LJEtetVa L7IhUEMuvJlfIpQ3e5K0 Bd4QYB58MJ98JB05 uBSmz4J2qXT4Z3IiPSGp tdfhobrtwHU2CHKyYZZe kJ74Hi5bjEhuDv2oBLMx CZC4HEZssDXaM9Rz mB8aVpUdODKqPCNhV7Ec qFXtIKndE902DFwfPuV2 QCKefdPdU0ZiIPTkpRms KpT5f3E6Ni6WHu77 UO91VM30pHLnp1K0lVV8 N1PqYJFbwilcnrbriLZ0 VABwMYFnbM99Pu8wtFzd Ra7cIZAtQFY6EXKb mVXrY4HttD6cHgEjGTNo RSOkM4SmcLGtEMzgD511 OWbzObQ3ZYKigvHxM2Pt EDScsBhzKwO2y8B0 Hq8TCVyubqs5T0NfVrny dHI+LJ54CYPeUG48uFOa qCIsj4emuEc6EeSuILFu TVR2jWyiMKwxu5Tn ZXI (more content not included)... [facility] Coding Summaryon 05-01-2023 Coding Summary HTMLBase 64 OgaxkilkIGr8gQa+PGhl YWQ+UU1ODOOmL75zcHKv vT1fG4YFUVbPFknrMNBB KMoRMhKtuyDdAA6bqAIv ZXJu IC8+XM9jVRFfXpnijCIz f1P1cJD5O93psf9qWAdc fTR0QVWfOvUdrfnbo6mf wCe3KSeoAekoFlLg HWSdkT49FHP3qQ97Yw15 sAHloBXzb7cxyGa6WiJo UKZjBNK2mCvzCBnqn3It VYRhH03yrPUti4Y2 IGNvbGxhcHNlOyBlbXB0 qL1gEDmjuocwg1zckmrw Efn4rg51jGTqz0H8nGR0 I7FojdE8SGUlcTCf TtodrTNRyL5cbhmla5jh usgfAbDeZCXySJn2ZTn5 QCBhoGdwPyAnLL08ERH3 OLApblFhM5FlVXYg vAdjBhG1l0L4Tz2JL3JL IujlS4ZBORYTMNmnhHN+ ZH18lx63M8SoFseoOqr9 ACMoNLQ8yDO7qJ6c XCFcTAtws1P6eXG6S0Fi dpFyei8uf8vgUODuHKaw J61jrBDhd4M3KYJypJZ4 XTLwbBmiFaAbbK27 Oyc+WKLpcFutl1DwSidu t4uxw2uxnUd9OegkSSDx bkVcuMezQAQ8h0ToAo6d UDPdwFE5fSY4cW3d NiQlQeH1HXpaJ942VcOj mSXyKyfgX74lP6BonZC+ PIIsXfb8LVGrrHcnUV7e U5DsEMAqvreraTXt lAmwDK7ySZThoyslOZAu kF5fKRSlU9d1QqAdMkV3 PNseC9SbMKQdrkckQj70 kN1rVdVzPuA8GJkt N8HvlgW0CZPxtVMuEJoh UEF2A41oh5M2FSUhMIYo QUQ0uQG2eV7jjZwfgrfs bGVmdDsgdmVydGlj VDliSVfvE829GXRoxElu PkNvZGluZyBEYXRlOiAg MDEvMjQvMjAyNDwvdGQ+ LUViYWS8fGnxJOKv cUOwPVlgQw2yqKrddCcy HP4eHUZxbdbqEHNkfM6e VKGwpTEbhKtzYA2lYPQo elkcl358VoTnTSG9 BLYcfGZhG4IxkU6pYgNu XFCmPXVfZ3FmpRTpOZww J974OBxzUpX5JTYnoiFr B3UhNZEocHaeCfU6 o6N6Ed8Hz4HdvrimO7Dj oPGeZlTuFqksZQo3Y7Jg PjwvdHI+AR64HMWbIE87 BHs1XBX2jHyjFXbk BJFsO2GhqB3xRqOmAJFe ZGRkOyc+PHRhYmxlIHdp ZHRoPScxMDAlJyBzdHls QW3bYs7sNETeILHx qUzwhFOdDiAsr7jrZQEt IOlnCH7lrFreM5HjeZM8 RVYsr2y8Hh28S44sO0Mc dXA+ZETkkZR8jUK6 sT2zRkRyBbI8BTniG244 JoTaxRYtUoxnu6tjh8uc iJk2CnE3IFNhegGsxMim VUQ8x4UtMu04C58n IHdpZHRoPSIxNSUiIHZh gAxsmz5aqW8rDe3+PGNv gKI8oTW4kW0mAgZkVuX6 NUqdD593QuGqnLIv Uxdup3rbf5yzzKy6JuAf XQUmkzPpcWutKHD3u8Iw Vu23Q0RvxEdcu1WaJek1 tg80wDAjc8H2eEU1 V6KtLEYpbhbmnDEfjYrs DI8aJBYzyojiRRLhcP5x YQDuP9t2MzUzXoX1VQjg U8WrfiC0ZRCpxKRk ATQfkXFQgO0fcyoev4sx hhelNpOfKRXdFNd2XHh0 PHLxkIfyMdZyHQC9LxW9 GYY2gNMnhA7luYhh kuvlzL9hTqw+YWV9vOMw ySWQIM0hAdcvvFW+PHRk JOC8iEkbLEpaARBzeP0h VHXpW3x3XwWmMiQ0 YXvgQ2DjqjC1XOUdkKNj VBHvdTCKcJ0anfygw6nc iioxCoNrNOXuVXf6KYh3 LWFsaWduOiBsZWZ0 LxF8KMJ5pOCteJ7nfWnh ejwjiJ8iGtw+QmlydGgg GFX6GZg8H9LzFgj5BHTz fXugNR9boATgRGoj Hm2bbKintHsrBO8aDKAz zzojy052DpHyo8unAHIk hUZpAXnfSZD7O77mm5B6 RMLtIHKhNPI7eFX3 nU5ccCfpgtevoHNujNam dwFqqKxrJDpkYPtxI472 WXYbpNbdBpAuJFm0R3Ir Vfi7EWMvoJwmVY2v gIFdSDweSs6jnKfwiYme OX2yKHXldheoo312SyQy z7vhKSZnoVQwWOssQPU3 Q44kg4W1NGBmBMMc GHT3eXB0rB1zwCgyrach bGVmdDsgdmVydGljYWwt OWyaE477PRGmmUzhMhOv kMx4H4BdLhw0GWOi yYwnLL0ffAHkPTqeQq1y fObjfZzjAF9nUQLjhbrm k602EeLtr9fdQUFrtWAo DTtjXNH4G91xy3D3 PGSfMXBlZEW9rZK8lH5p bGlnbjogbGVmdDsgdmVy aEudVPbePEzaY397IOTg cDsnPlBhdGllbnQg WBdlJAs3T6ZeQcsptES+ WX51ZZGvFQ05qKAeeUGl l0dfrAm2DaWtUTOtYBD7 oMwdBQttc3DdLTEz I91acPRst8E8NOIsmHaw rOChQsMauWJ9eY0eIHgm iaviz6dcwjdaZmkhm8fr dj37vM11J40vCRbv ZHRoPSIzMCUiIHZhbGln tu9owP5fYv3+PGNvbCB3 kZL1tS6pMEMaUqF0IGdr I013FhFmbIUgQrro c6pul6vamBp0PsA7NKYw jeFmqQjtOHG8c5VxQf50 C78nXZfqETScNRFzPFBd CKIcqDoflk0liQ7x Ii8+OFIibEN7hRJ6zF9e SaInAaB2JYwmU981WhXy zCLaDdttN62bE7KteRB+ CNXxYjw4JWPnlOmh IW5khBFuWIdeSw7nGFV9 RoYjPoMjFTnnS1WtGAYq phtrryrmqMX6ZBBkJSEe nK27Cg5gwQyaVHQq hHRAxR7cdssdd5cufspe WiNlDQMuYYb5JZy2BWVb eCqsCsCxGLE1WaK2RNC6 dHAwkB6juXrquygj iC7iR1XmZUUjoepcZf01 iR3wHkPqOeC0YVitYtd+ S0uYFjITUAqyY4zOSFPQ GDhLRM0ELMfsiKA+ HTAvMML4fVbkDHvmKXKe vS2vMDUaC3m6WtBaBrO4 CNqmR3RmTMLpfqstTv29 cM6gSbSeCbS9KMbb U0DskoL0BPHymHYyGWbw MON1M93fj3Q0CZNaJCYr TGJ7uUV8dO0ziPyrwwoi bGVmdDsgdmVydGlj MNgyDXotF200TFJckLvc CeY0LqKhOtZeJVZ3B5Mg Mnu7OGJwaEayHE5crLPi UCfvRu4efRqizLwh UC4fELDdnstjSYDnfG9t BINmgOPmsIutGG8lZNCj aznak343ToWzLLI8TWKb hYQtY7PayD1oBkKy SJNaXQQpK3VxtVLrJQla N914HCdyQnV5VIZwwgWs P7SmSVBnrHucXqL5b2O0 Zw3nMBLSJFChxkmp dGQ+LVAuWCL2bOlyHEys YKRykN8yMBZaU1z5MwEv EkI3VMdtZ9JxPGOqosxa Bm24fU7tXvCaOlY4 ZLxcS5KmwdT8HLUwiXUg SJsoZRC9W96tq2F2BFZw JOUqTDB2gHD2fL9zrBwo bjogbGVmdDsgdmVy dBlgJBfkHElcO380YMKp cDsnPkZFTUFMRTwvdGQ+ VBBzOHK3iEncVBupDHCi rG3jRUQrP7m5VgUf CkL6XDeuK6FqKGIfophr Mb41eU9hGhPfMuQ2BItb G2IbluC6RIAniPYxRGzf GGB7X76ft5N6RQIy JTFnQGZ1tAZ9bN3djAwn bjogbGVmdDsgdmVydGlj DQatYDzxO031GIIdsVqy Kt9OMS35GE60U1Jq PjwvdGFibGU+PHRhYmxl IHdpZHRoPScxMDAlJyBz uQirGC3vSk9lQLYvKFPn cBvirAGmGqHkh0to TGEzGDleCD6rhYosA5Cg dIE2HXWkm5w1Un45M35g B1ZazFF+FTHlkZN2nMC9 xN4hIyOoWqA1BMkl J902OuYweRRkWqcbs6tx e9eboVj1ElHxVTIgbiNc bEkdNPT3e2QkGg65C12z IHdpZHRoPSIyMCUi UZYziIjudd8spA2kNe3+ PGPhkQN2dEA0wL6gBoAn OzM1JIulY111VnBlvOAa FbsfM10pW3ZkoCS+ VXLtZzs2XCCceBpgUU3j oOLnXMgyIt2uZLE1IwIn CiDnMPptL6VtARYtayiu ynuviHG0QJQbQTCy dG81Fa7jpNliXi4aQOMf QVX6VUZoyRAwJ8MulE4n ZgNdAIUdRGLpX4TqoFUr YVvvT966BPadXsN1 OCDljtShZ0QaXLTwePdc XsS0z9O2Pm2QmPfcaVIr VR8rIdCfUBv3A8RsLda0 MZAmyJwgAE9pxGFw VEktBn8lfNpynTblZE8j FBGccxxdn908IjZzn7wp SABcjXMpWEinDDV8B44c y0I8JEToBLRwAQR2 wNN5aJ5ceHeyrbkweIFl dDsgdmVydGljYWwtYWxp C154SFPxyKveDlWWQwo5 N7AzKdy7DALhxEcy AE9kmMAgGCaeLl2taTix tWxxIS1sGOLnpvqmn951 SqKre1btESDyfXOqECqs AKP5R79zb1D1PGKg QORmDOZ7dZH7cU7vaTbd bjogbGVmdDsgdmVydGlj VOibKKkaI870SSElzUgu Sv2VWur7C6NhFeh1 YYCndYgvIA0evDRkTIfm Ol5eqWfgyNicDJ9dACFp owlzk495CoNiy4vwQSFh fUMhRZmnTZN5I13v s0W8ZVGeTFWjMVF4pJP9 rZ8sdJmosnztlSNjnOau zkJqbKfcDIplHNyqP019 IHRvcDsnPlBheWVy OjwvdGQ+XH57zp08M0Aj BcewEiu3XHShGOK2jVR2 sQ3kYMGtQQnyp6I0vIX5 Z6DxkrSgua4bg9wu YXB (more content not included)... Normal [facility] .Auto Diff 04-15-2023 Auto [place] % 8 % Normal 04-19 [facility] Comment on above: Performed By: #### 1 [id number], [id number], [id number], [id number] #### [facility] (DEFAULT) [address] [place] [address] 27002 Baso Abs# 0.1 x10 Normal 0.0-0.2 [facility] Comment on above: Performed By: #### 1 [id number], [id number], [id number], [id number] #### [facility] (DEFAULT) [address] [place] [address] 37064 Basophils/100 WBC (Bld) 1.0 % Normal 0.2-2.0 [facility] Comment on above: Performed By: #### 1 [id number], [id number], [id number], [id number] #### [facility] (DEFAULT) [address] [place] [address] 11198 Eos Abs# 0.1 x10 Normal 0.0-0.4 [facility] Comment on above: Performed By: #### 1 [id number], [id number], [id number], [id number] #### [facility] (DEFAULT) [address] [place] [address] 49265 Eosinophils/100 WBC (Bld) 0.5 % Low 0.9-4.0 [facility] Comment on above: Performed By: #### 1 [id number], [id number], [id number], [id number] #### [facility] (DEFAULT) [address] [place] [address] 00751 Lymph Abs# 2.9 x10 Normal 1.3-2.9 [facility] Comment on above: Performed By: #### 1 [id number], [id number], [id number], [id number] #### [facility] (DEFAULT) [address] [place] [address] 81043 Lymphocytes/100 WBC (Bld) 30 % Normal 14-48 [facility] Comment on above: Performed By: #### 1 [id number], [id number], [id number], [id number] #### [facility] (DEFAULT) [address] [place] [address]12 [place] Abs# 0.8 x10 Normal 0.0-0.8 [facility] Comment on above: Performed By: #### 1 [id number], [id number], [id number], [id number] #### [facility] (DEFAULT) [address] [place] [address] 41554 Neut Abs# 6.0 x10 Normal 1.5-9.2 [facility] Comment on above: Performed By: #### 1 [id number], [id number], [id number], [id number] #### [facility] (DEFAULT) [address] [place] [address] Neutrophils/100 WBC (Bld) 61 % Normal 44-88 [facility] Comment on above: Performed By: #### 1 [id number], [id number], [id number], [id number] #### [facility] (DEFAULT) [address] [place] [address] CBC w/ Auto Diffon 4 Erythrocyte distribution width (RBC) [Ratio] 13.4 % Normal 11.5-15.0 [facility] Comment on above: Performed By: #### 7 [id number], [id number], [id number], [id number], [id number] ####[facility] (DEFAULT)[address] [place] [address] Hematocrit (Bld) [Volume fraction] 40.7 % High 33.7-40.4 [facility] Comment on above: Performed By: #### 7 [id number], [id number], [id number], [id number], [id number] ####[facility] (DEFAULT)[address] [place] [address] Hemoglobin (Bld) [Mass/Vol] 13.7 g/dL Normal 11.3-15.9 [facility] Comment on above: Performed By: #### 7 [id number], [id number], [id number], [id number], [id number] ####[facility] (DEFAULT)[address] [place] [address] Man Diff? Auto Invalid Interpretation Code [facility] Comment on above: Performed By: #### 7 [id number], [id number], [id number], [id number], [id number] ####[facility] (DEFAULT)[address] [place] [address] 51229 MCH (RBC) [Entitic mass] 29 pg Normal 24-34 [facility] Comment on above: Performed By: #### 7 [id number], [id number], [id number], [id number], [id number] ####[facility] (DEFAULT)[address] [place] [address] MCHC (RBC) [Mass/Vol] 34 g/dL Normal 26-37 [facility] Comment on above: Performed By: #### 7 [id number], [id number], [id number], [id number], [id number] ####[facility] (DEFAULT)[address] [place] [address] 34271 MCV (RBC) [Entitic vol] 86 fL Normal 81-100 [facility] Comment on above: Performed By: #### 7 [id number], [id number], [id number], [id number], [id number] ####[facility] (DEFAULT)[address] [place] [address] 50680 Platelet 430 x10 High 138-427 [facility] Comment on above: Performed By: #### 7 [id number], [id number], [id number], [id number], [id number] ####[facility] (DEFAULT)[address] [place] [address] 00271 Platelet mean volume (Bld) [Entitic vol] 8.5 fL Normal 6.3-10.2 [facility] Comment on above: Performed By: #### 7 [id number], [id number], [id number], [id number], [id number] ####[facility] (DEFAULT)[address] [place] [address] 07058 RBC 4.75 x10 Normal 3.70-5.30 [facility] Comment on above: Performed By: #### 7 [id number], [id number], [id number], [id number], [id number] ####[facility] (DEFAULT)[address] [place] [address] 88022 WBC 9.9 x10 Normal 3.5-10.5 [facility] Comment on above: Performed By: #### 7 [id number], [id number], [id number], [id number], [id number] ####[facility] (DEFAULT)[address] [place] [address] 03865 CMP Standardon 04-15-2023 eGFR Non AA >60 Invalid Interpretation Code [facility] Comment on above: Performed By: #### 1 [id number], [id number], [id number], [id number] #### [facility] (DEFAULT) [address] [place] [address] 40538 eGFR AA >60 Invalid Interpretation Code [facility] Comment on above: Performed By: #### 1 [id number], [id number], [id number], [id number] #### [facility] (DEFAULT) [address] [place] [address] 71088 Albumin [Mass/Vol] 4.5 g/dL Normal 3.5-5.[address] [facility] Comment on above: Performed By: #### 1 [id number], [id number], [id number], [id number] #### [facility] (DEFAULT) [address] [place] [address] 77554 Albumin/Globulin [Mass ratio] 1.2 {ratio} Low 1.4-2.6 [facility] Comment on above: Performed By: #### 1 [id number], [id number], [id number], [id number] #### [facility] (DEFAULT) [address] [place] [address] 79054 Alk Phos 68 IU/L Normal 32-91 [facility] Comment on above: Performed By: #### 1 [id number], [id number], 1669293, [id number] #### [facility] (DEFAULT) [address] [place] [address] 03078 ALT [Catalytic activity/Vol] 34.0 U/L Normal 14.0-54.0 [facility] Comment on above: Performed By: #### 1 [id number], [id number], [id number], [id number] #### [facility] (DEFAULT) [address] [place] [address] 91773 AST [Catalytic activity/Vol] 27 U/L Normal 15-41 [facility] Comment on above: Performed By: #### 1 [id number], [id number], 8512702, [id number] #### [facility] (DEFAULT) [address] [place] [address] 55102 Bili Total 0.7 mg/dL Normal 0.3-1.2 [facility] Comment on above: Performed By: #### 1 [id number], [id number], 6117491, [id number] #### [facility] (DEFAULT) [address] [place] [address] 77239 Creatinine [Mass/Vol] 0.77 mg/dL Normal 0.60-1.30 [facility] Comment on above: Performed By: #### 1 [id number], 44440901, 1429716, [id number] #### [facility] (DEFAULT) [address] [place] [address] 85841 Globulin (S) [Mass/Vol] 3.6 g/dL Normal 1.5-4.3 [facility] Comment on above: Performed By: #### 1 [id number], 79531701, 4634497, [id number] #### [facility] (DEFAULT) [address] [place] [address] 27737 Osmolality 269 mOsm/L Invalid Interpretation Code [facility] Comment on above: Performed By: #### 1 [id number], 14781456, 9710996, [id number] #### [facility] (DEFAULT) [address] [place] [address] 49908 Protein [Mass/Vol] 8.1 g/dL Normal 6.5-8.[address] [facility] Comment on above: Performed By: #### 1 [id number], 76787105, 3778911, [id number] #### [facility] (DEFAULT) [address] [place] [address] 31607 Urea nitrogen [Mass/Vol] 10 mg/dL Normal 8-26 [facility] Comment on above: Performed By: #### 1 [id number], 00461658, 4740309, [id number] #### [facility] (DEFAULT) [address] [place] [address] 13080 Urea nitrogen/Creatinine [Mass ratio] 12.9 mg/mg Normal 4.6-16.2 [facility] Comment on above: Performed By: #### 1 [id number], 74581349, 4659451, [id number] #### [facility] (DEFAULT) [address] [place] [address] 13277 Calcium [Mass/Vol] 9.0 mg/dL Normal 8.9-10.[address] [facility] Comment on above: Performed By: #### 1 [id number], 42375093, 0397291, [id number] #### [facility] (DEFAULT) [address] [place] [address] 59003 Chloride [Moles/Vol] 104 mmol/L Normal 101-111 [facility] Comment on above: Performed By: #### 1 [id number], 45633621, 0547955, [id number] #### [facility] (DEFAULT) [address] [place] [address] 15827 CO2 [Moles/Vol] 23 mmol/L Normal 21-32 [facility] Comment on above: Performed By: #### 1 [id number], 66053911, 4299484, [id number] #### [facility] (DEFAULT) [address] [place] [address] 74916 Glucose [Mass/Vol] 94.0 mg/dL Normal 74.0-118.[address] [facility] Comment on above: Performed By: #### 1 [id number], 42495785, 6723960, [id number] #### [facility] (DEFAULT) [address] [place] [address] 05558 Potassium [Moles/Vol] 3.9 mmol/L Normal 3.6-5.1 [facility] Comment on above: Performed By: #### 1 [id number], 81019283, 1091164, [id number] #### [facility] (DEFAULT) [address] [place] [address] 31727 Sodium [Moles/Vol] 135.0 mmol/L Low 136.0-144.0 [facility] Comment on above: Performed By: #### 1 [id number], [id number], 6245167, [id number] #### [facility] (DEFAULT) [address] [place] [address] 33429 Anion gap [Moles/Vol] 11.9 mmol/L Normal 5.0-19.0 [facility] Comment on above: Performed By: #### 1 [id number], 17166549, 1312325, [id number] #### [facility] (DEFAULT) [address] [place] [address] 55640 ED Clinical Summaryon 2023 ED Clinical Summary [facility] - Emergency Department [address] [place] [address] ED Clinical Summary PERSON INFORMATION Name: LIA DESAI Age: 22 Years Sex: FEMALE : 2000 MRN: Acct#: Visit Reason: Vomiting - ; NAUSEA, VOMITING, 6 WEEKS Arrival: 04/15/2023 14:48:29 Discharge: 04/15/2023 16:38:00 LOS: 000 01:50 Check In: 04/15/2023 14:48:29 Checkout:04/15/2023 16:38:00 Address: [address] [place], [place] [address] PCP: ROBERT MARRERO PROVIDER INFORMATION Provider Role [...] EDUCATION INFORMATION Instructions: Nausea and Vomiting, Adult, [id number] Follow-Up: With: Address: When: ROBERT MARRERO [address] [place] [address] Within 3 to 5 days DIAGNOSIS: 1:Nausea/vomiting in Patient Understands: Yes - Patient/family/careg iver verbalizes understanding of instructions given Comment: Normal [facility] ED Patient Summaryon 024 ED Patient Summary [facility] - Emergency Department [address] [place] [address] PATIENT DISCHARGE INSTRUCTIONS Patient Information Name: LIA DESAI Age: 22 Years Date of : 2000 Reason For Visit: Vomiting - ; NAUSEA, VOMITING, 6 WEEKS Arrival Time: 04/15/2023 14:48:29 Primary Care Physician: ROBERT MARRERO Attending Physician: Yassine Maldonado MD Comment: Visit Diagnosis: Diagnoses This Visit Nausea/vomiting in (O21.9) Vomiting - ([id number]) The Pharmacy at [facility] is open Saturday through Saturday from 9A [...] alcohol and/or drug addiction problems; contact the [facility] 29/10 Crisis Hotline -Text 7SPCW yt 962838. If you received any narcotics, sedation, or [...] With: Address: When: ROBERT MARRERO [address] [place] [address] Within 3 to 5 days Medication Information: The exam and treatment you received today in the [facility] Emergency Department were for an urgent problem and are not intended as complete care. It is important for you to follow up with a doctor, nurse practitioner, or physician?s promotions assistant for ongoing care. If your symptoms [...] so we can reach you if necessary. [facility] Emergency Department has provided you with a complete list of medications post discharge. Please inform your marketing communications coordinator/provider of your visit and for further instruction [...] other disea (more content not included)... Normal [facility] Extra Greenon 04-15-2023 Tube Collected Yes Invalid Interpretation Code [facility] Comment on above: Performed By: #### 7 [id number], [id number], [id number], [id number], [id number] ####[facility] (DEFAULT)[address] [place] [address] ED Clinical Summaryon 2023 ED Clinical Summary [facility] ? Urgent Care [address] [place] [address] Clinical Summary PERSON INFORMATION Name: LIA DESAI Age: 22 Years Sex: FEMALE : 2000 MRN: Acct#: Visit Reason: UC - Nausea; NAUSEA Arrival: 04/12/2023 09:25:14 Discharge: 04/12/2023 09:56:00 LOS: 000 00:31 Check In: 04/12/2023 09:25:14 Checkout: 04/12/2023 09:56:00 Address: [address] [place], [place] [address] PCP: ROBERT MARRERO PROVIDER INFORMATION Provider Role [...] With: Address: When: ROBERT MARRERO [address] [place] [address] Within 3 to 5 days Comments: Diagnosis is history of nausea vomiting, during . We provided you with medication help with nausea. Keep hydrated. Eat light, over the next 24-48 hours, soups, Jell-O, avoid heavy meals. Follow-up with your own primary care provider, or your [facility] physician in the next 3-5 days, for reevaluation. Return to the emergency room for worsening symptoms or concerns, worsening abdominal pain, worsening nausea or vomiting, spiking fevers, acute shortness of breath or chest pain, or any questions DIAGNOSIS: 1:Nausea and vomiting during Patient Understands: Yes - Patient/family/careg iver verbalizes understanding of instructions given Comment: Normal [facility] ED Patient Summaryon 024 ED Patient Summary [facility] ? Urgent Care [address] [place] [address] PATIENT DISCHARGE INSTRUCTIONS Patient Information Name: LIA DESAI Age: 22 Years Date of : 2000 Reason For Visit: UC - Nausea; NAUSEA Arrival Time: 04/12/2023 09:25:14 Primary Care Physician: ROBERT MARRERO Attending Physician: Oneil Salomon Comment: Patient Education With: Address: When: ROBERT MARRERO [address] [place] [address] Within 3 to 5 days Comments: Diagnosis is history of nausea vomiting, during . We provided you with medication help with nausea. Keep hydrated. Eat light, over the next 24-48 hours, soups, Jell-O, avoid heavy meals. Follow-up with your own primary care provider, or your [facility] physician in the next 3-5 days, for [...] these instructions at home: Medicines ? Take ccve-jeu-kjakyep and prescription medicines only as told by your health care provider. Do not use any prescription, tnnh-rpa-gumpbnz, or herbal medicines for morning sickness without [...] to yo (more content not included)... Normal [facility] [place] 024 Urgent Care Record [facility] ? Urgent Care [address] [place] [address] PATIENT DISCHARGE INSTRUCTIONS Patient Information Name: LIA DESAI Age: 22 Years Date of : 2000 Reason For Visit: UC - Nausea; NAUSEA Arrival Time: 04/12/2023 09:25:14 Primary Care Physician: ROBERT MARRERO Attending Physician: Oneil Salomon Comment: Visit Diagnosis: Diagnoses This Visit Nausea and vomiting during (O21.9) UC - Nausea ([id number]) If you received any narcotics, sedation, or [...] With: Address: When: ROBERT MARRERO [address] [place] [address] Within 3 to 5 days Comments: Diagnosis is history of nausea vomiting, during . We provided you with medication help with nausea. Keep hydrated. Eat light, over the next 24-48 hours, soups, Jell-O, avoid heavy meals. Follow-up with your own primary care provider, or your [facility] physician in the next 3-5 days, for reevaluation. Return to the emergency room for worsening symptoms or concerns, worsening abdominal pain, worsening nausea or vomiting, spiking fevers, acute shortness of breath or chest pain, or any questions Medication Information: The exam and treatment you received today in the [facility] were for an urgent problem and are not intended as complete care. It is important for you to follow up with a doctor, nurse practitioner, or physician?s promotions assistant for ongoing care. If your symptoms [...] so we can reach you if necessary. [facility] has provided you with a complete list of medications post discharge. Please inform your marketing communications coordinator/provider of your visit and for further instruction on these medications. Any specific questions regarding your chronic medications and dosages should be discussed with your primary care physician(s) and/or pharmacist. New Medications [facility], [address] [place], [place] [id number], [phone] ondansetron (ondansetron 4 mg oral tablet, disintegrating) [...] is not kn (more content not included)... [facility] Coding Summaryon 03-06-2023 Coding Summary HTMLBase 64 CrlwwtbrKFb9cNn+PGhl YWQ+AE3YKDMcV13kgGOm yU1vL8STUZuCSngiVCSQ JLeNMeMoukMbAM9edVMu ZXJu IC8+QH5gLKSvNytahDOw b3I6eRJ3W63jta6rYHno dXN4GMRpHwTkynnie6tm dNv0KRnmYlozBsHg ATFpeM75NIW7cC56Qb75 kEQfvPCkj5gwmDt1WuAw OZAeIDF6oPpvDTldt8Qy TPQjQ56rkCLwp9D2 IGNvbGxhcHNlOyBlbXB0 kN1pQGxkvqcwf3cstymb Xuu4gu18oKEkk2R0sZP9 O5XkiyI9YLIuuKBh RjbgsDCUoW3iydfmx6qq wphkPsHcOFOsEKx3BVh0 KUElnZujOpJnIZ21AFJ4 OETwppFkV6WgCQNm tKfzZpV5w7Z2Nc9YR9VP EsxpL1MZHMYGYGvanWF+ EV75it25Q1DuXmqbIcx1 BPWiBGJ0cYW9wZ4z TDUmTCkig0X7uLG3I7Fj zuApwk0yu7xbJHLxIWoy T41uqKUgz9E1FOQchTH9 WVRduSrqVsWyiT56 Oyc+TXQedLcrx1KqKoio p0bpv8tgqZo9WecdDSSm duVfqVhfKTP2s3AwDx1q PLUwwTP4wMY7pQ4t BnKjXkS8EQgbA380PaKg dKAeQgblA12hU8UwhTR+ WGZgMlz6YOSmkAskIN3z N5SpUCXpwouqmVQr bUioUD1yKECrdtrzOCVd kS1yGYFdT2d5FiGhIjH8 SCraU9NiNGPndunkWc37 hR8tWpYlOeP1RFkx P3YjphL8YQJdzCCkOPkg NEL1V30kz5X1NCIqHCGk FTP2uCK6aL5yhGuipbfa bGVmdDsgdmVydGlj FWefLKilD167PSDjaTdd PkNvZGluZyBEYXRlOiAg MTEvMjkvMjAyMzwvdGQ+ FQXnWIQ4wPquEQUu kCRbUUltPl1qeZxuaPeu NU8iRUDorqgkJJKzuM3a CBOrfOArsHitTO9nXNSy lostf685MlPwSHI2 ZHNnkPIoR6UleS6ySoVu YWSiOOWvN2CehIEuVZkt Q327XBzaNrN2XYRpcbCo J6IhASLmxVaiGuF3 j2D1Uy5Zq8WulyhoQ1Mg vKCjLjBiAgbnYFy9M2Ij PjwvdHI+ZJ58QIYaKL75 EAp5HHP0bOysRUku QMQyE8PwyZ7rPrHiVRLc ZGRkOyc+PHRhYmxlIHdp ZHRoPScxMDAlJyBzdHls VP3aNr2zRLYuXIKd eEnrcMHeCuMwd8baHYGk NPokCM2tgRyfU7PegRU5 XLNcu3d3Ex54O50lT1Nm dXA+NWOeyMQ4uAH0 eK7aWkGpVgS8BNuwV882 CsIzjCPbYhwvf3mwm5yy kYl8GuI8THJxbrUtxGzy NDH7p7WxSy04X40i IHdpZHRoPSIxNSUiIHZh cYncwn6zuI8vLn5+PGNv sGD9uTF2tS1oEaQiOnU7 WJroG034KqJcjHLf Sofhs5rno1egpWu0DvLc KVZwjdBkyEotXXY6f5Ha Zm89A2QwhUrzn0BdNbo5 dx97vMYeo4W2qIC0 H3NpFFDdkiuvtESzmGpc ZC9lMHHbgcjdRXBupR5w SSAfP8b4NkUcExU8SMre N1VvclL3APZfqWDp NREyuAETgP3iwfcst1jn bvwtJdTeAAVqFIv2QOw5 DGDciPdrUpCzHXK2NaY5 OOU7jAKwcF4fhMth caytpX8aLuw+XSQ5sCQo mANNPK2kZguatKW+PHRk QVW9sHjzDDxsSMOepR9g VBFvN6y5RvZkObQ5 GJzgN4EphuO8YHGiwMYk ZAUbeEIBwN7ghzznx4ev hxapTmZpFJTaUHg1DDi7 LWFsaWduOiBsZWZ0 WhD3GNH9cNKpvS8qoEio zzwwjC8oQvu+QmlydGgg PYS2WAc3U2GlPvp9XMMi cKxnYT5hxZLqGBii Lj1edGyqdGftAA6zQFHy rukqj175HzQbn0hwCNVg cMXgIRowAGS9I36xt8G9 JWJsTDLkZRG0uXA2 bG0acDvsybwgzBIfwQqu hlIutOxjESugCLesM063 OBFecIklDvGkODe4H8Xt Pyx7ASUomJvbBG8a jOHdZDbpSx6coQibeUsf EF9pNZPdhrhac314MqNu p2vaGASskYDnIHhfORJ8 I53yv7I3EAMhFOZt NTW5zAT4oX8qsAsuyyfb bGVmdDsgdmVydGljYWwt JQgwG085DUJkkYsgWgEn wSh8G7GqXce5GXVm dPwwSV2ieMByEOwkJh8g sWhajVqsLH1mXFQbwlvz q997EeLzg6anTNHguQZj YNwvPWB9O89ih6X0 LXUpWJLiKDM7hVM1dF8x bGlnbjogbGVmdDsgdmVy fPucDEusGAmaF585JRLf cDsnPlBhdGllbnQg XWpmDXc6X2ZrDgpjnUL+ YX07WKKwXA09fZLakUJd m0qaqXh2AzOeXSHwOKR3 uNujENndl2LgRJCa A99uzBYlj0J8ZFWpnPuh oFQtJyHxaIB5eE7qFLxw qymes4dlzzqdVrheq1iv zq59lZ47J82sRVmr ZHRoPSIzMCUiIHZhbGln xm7xcD2iTr0+PGNvbCB3 gKS7oP4hUJHwIbX8SUso R458MfDepVAhOzkl a8usq8pkbWb3SxX0TDMt brBskNlcIUT8q9DzRj64 P86kGZorIUYeDDJxWDGe HHRdgMovdz4bdH3q Ii8+DYXfqDL6rMY2jY1t FiRwQvN0XBpjM712NmYw zIOeYfxxO03bE5SxwDJ+ IWVxHcu9VFHsfHcu AX5veALpXXyuKp1xPVA5 FfJxHtZwKPmiQ7VjHVXw fvovtszxpSX2HUMeVQJj kH90Qz2ryHttPZFz yXCSqZ4mncopj9asghao PuLpYYDpBBu5LEa8VBWh rAgaOrMpUXQ6RsY2YUI6 lAVikS0mqImkbble iW9vO3ExVDIshyxkYb95 bM9vBdVpMeU5BDjwEdi+ O1sUOnZAXMecO2fPZUXD EHoFUR9QMYdzaGQ+ XGBwIDP2pQriVRmmXKHy jD3qLNSbJ0k4AlOrHkU0 JEbaZ9GcURTcjihcKc10 sP8hFtFmRgG1DHsk T8LewaY7UTFiaLSpUYae NQH7J23sv7N8LQXdGAVi YVE9qFQ8yL2byMepmjva bGVmdDsgdmVydGlj RZknWLbbL808OISrmXba WjJ2MgYwRfYoCDU0G4Gc Xpx3SJDntHszTI8tnCBf GPkrRa4brVoldVkz LL5xVLDaurzvBEGywK3m BEZoqJPqfExjOJ6aZMZx ythfr404PuPwGLY2DUOe hVWbR6DhaZ6mSdKn KOZrTPCvI1FiwLEsBBst T125QQitDfM6WKByozJx H0FzPLNyrHtjAxP7d5E6 Va9mNBXLCWUwtwjg dGQ+ZFFmFMG3zUapQQns SHEboZ6rPZEgH0r3AvZc UcH4DKzlB5EkQNSqmihi Np21qR4jQmShLhZ4 PDgzQ5KgahK8FZFpfIUm KWtoQBD2V68ou5U5FFAo ZBJmABY8iRA0aS2qnBtm bjogbGVmdDsgdmVy pNjmPVcdQXvaY738OAAj cDsnPkZFTUFMRTwvdGQ+ IIRbMXO7tKqoMIggOPLg jX7mSSEjX6y7GwFe QrR4CNuaI0ZxQXAovrfl Aw43cC6tOtGzIxS6HVvb H1PanbM0NSUjwVJnSSqe DYN2D05da5O7NRSy ACJkCDO4hPJ2oB9vtSnk bjogbGVmdDsgdmVydGlj ZNmqVOofV229QXWyrGfr QhEdKBKgKY5mzRdg dGQ+TA91qe02U5OhMmrk Xtz5ARUoOLE2nQZ3sM0z VKUwTKlar0X2gFT7B1Mi gfWveh5uv2sgXZMk FZzjN52jwIKvx5F0GIEn yXE3PNDsgRxqCmOylM77 Oyc+DNRbePfzv6RtIfaj g4juh3ybzPw3QoUs VZWtmyNsyVjeVOM0a7Gz Ru52M65uPNaxRTRzQIMp ECCmZTGuvKvfdb9vpP2o Ii8+QCVggZB4iZM9 rM7jYrVyCuN4QMxoB121 OkPvnVPwZdcdd6lhu0to cUy0BpEaQIXwwrJlaNbk WPF5q5OvSi47J6Mz eQgfg2KpDyd6fn46rAPm a3M1gWV3K7GoUASmjttb qLWxeTsnVD4vLFUuaxct XHNiiR6cZSBqJ3l8 MfVqFrM7IMexH4ArelG9 FPMbaAVsCQPbrLDOyD7x tpwzv7ujltbjOtNbXKEv JBm7GDi4NFXovRka MyXvFOL1KuP7REG6uXTn sG7fyFaiclkhiY1yQwt+ PVa2g4mbiLFeJP6seKB4 OF76AK63sFKfy5H1 zIV7X4DuDLAksjqnwkdx uMO1WFPiFDEuqE90Jn3n cGdbJq0qIXTwCPD1OXJy kAVjJ2CxuK3kMdZn HKXmAZSkD3XnzPCrULmr M081JPztFlN9SLRtfyIg H1HvGOStbCtdLaP6i6X8 Pz8OYN56PS39GH03 qYTfy2P9mJJ5N2ZzYOQs aafxufebdFD1JGRuHMPd lU92Ae5zwGrqIp4yLDYp DWC1AEBcrOOvP5Sl rF1eFjBoTKMhPHUvB5Bq eTDrLSblO997PTdxSjB5 JJLydiRwS5MsUSPqlFec ZtI5n2N8Xc7CHa80 MS16XH71mDHga4R3jRO0 N1DmILKfyskgzpjabPL5 FPNyQNQfnG19Lf0suHlo Cw7iAZJyKIK8MKKn iWBeT7EztO7zHxOpXAWv HEKjM6ShqFGfZAxdC207 UMpdXiM2EJXaolXzI2Iz MYUcpZdsNiU1z8O0 Pq1GHOjsvfk0B7NuYeok dHI+HX73YKHhRJ29lFJk rGYtf2hqbPe7YtCnWFUu RYR5vAuwDAtww5Jc ZXI (more content not included)... [facility] Coding Summaryon 03-05-2023 Coding Summary HTMLBase 64 RwyqvmruKVl1zWo+PGhl YWQ+XK5PMBIhL40vbHAf qU5rY2LJXOsLCmjdVXZV VXmDGtKtacPuDH5sxVJl ZXJu IC8+OU8uKXYhRnibxMRn m3U4fVY1L91mzx8qYDzo sWU2ITKrCvHambyit6vv lFo9QLfzVkwyOoCx HVDvuW80SPW3iG60Be40 bKWsuDZsj1uuiDq4OgBd TVXkWCF6bIzrDBhae0Ed JGEyN29xqLNny3N5 IGNvbGxhcHNlOyBlbXB0 zH7cPKdxrhmlp3dbztvv Egc3hj22dAVrd7U2uMR1 X2EvmwJ7FKNdhSLd VvpatBQZzV7qyyjbm3tp nzdoZmGtRNLhULw6EVq5 TFUqrCdqEhEsZZ92MBQ0 QCPbqpVzD4LtUWPc qPnvPiX8c0Y7Zl4KR7PK BcnxB1FIMKGUNHakoTG+ DO99ms68M6MyXnvdLyr7 BAHrVQJ0qWZ8tM4l DYArTLuvy9Q4iZA7O8Hx uvNkrq4bc7gvNCFhNUco L64rpPTln8X7YQPwyBY0 GYFvbDkbJxXrwU09 Oyc+YKZypWpiv9ZlHqid e2vqk5mooLi1TxcnLWMk jdZimSnzBTQ6d2SkWe7f JAIbsLD7eUR0uR1c MmZeYwK4FCvyX316NsNd hPShEyvuI46xA2UbwQV+ IXUgAcf1LLLugWeeXT2b W4NtLVHrcegbaOVn vChmNM8uMTYojrjkAZPw lP3lIYAqG6q5JhJpVlH3 XZtvT6QmSEWorlvtCm18 mO8tHkUfGaY8YQbk P6FwinS7FAWrdNMxWDax YHD0L63jm8M8JEUfLHNe LYO0wYL2iE8udXyljapw bGVmdDsgdmVydGlj UQocGIisX620OBWcrEoc PkNvZGluZyBEYXRlOiAg MTEvMjgvMjAyMzwvdGQ+ YZKnUDU2mBdfCQDa qZGbODcgQv3ubFczdWem UA6iTDRpwgjjMIGnhJ3o TDVjxHGofGctSW3hAPWg vofax975DiUfWWP7 RWKleIGfV8SqjR1iIwWt LSLzESMxY2BvaMUoBYxf A668ISklMiE9GTBuifVg L3TwFXInpWmkOmT7 u8W7Gc6Mc3TdjrkqM1Nq rFAbUbIyScccCYk3R1Kj PjwvdHI+SR44OOOvXI89 IMh4DKM6nXseNLes PJUkQ1YsoQ0kQeLtSZFx ZGRkOyc+PHRhYmxlIHdp ZHRoPScxMDAlJyBzdHls RZ6jFr0pUEScIBXt kIwyfQYjZhUrz9crGPCl ZAruGC2ezJogT0RvmIW1 HEWny1c4Oq06M34tY3Ng dXA+BIYcdAD9uFK7 dC8tRwZtJbJ1DBjmC690 HcZmnTNfLukry0hph0ip rTt8FlV3ZQAxioFntXlx VXS1d3FbDx91H27y IHdpZHRoPSIxNSUiIHZh pSuqxr2mlI7wCj7+PGNv tAX3kSL1fN0bXvIxIhH4 LAgfD579StRhgTDs Pryao9iuw1htkIr3AtSc KGFyvoZaoWyuMKZ4b8Wj Kn85L8HimMoew9RxZlw1 tl57cZGwa5Q6gKR2 W4RiWGXvasrijJUaaNcc AG9nWTDwznauTNPkhW6a BLYvM2n1RfBwNpU7OCrl F6EcrrS7YGZdaOJl YQNqmXXYuX7vzsxnz3pf peamKlMjZPJgHWn8ZQq0 UOEcgLbkNeLyZGX6SiP7 HNT5uUTdiJ7ewSui asiqeP8oTty+IPU7gLPq pYCZGS4qIpebfZX+PHRk BGZ3uDmpWXboRCRizY7t KXEcG9h3GtDwGlH0 GPfbN9IdkhV5IBQabLSx DJSujOTUgF8tyrpmb6cn jdkuQnSzOWHbGDc7OOh8 LWFsaWduOiBsZWZ0 ChO7KAB6pOVlcF2xkGxd jcjxoL4sTup+QmlydGgg KIN8QJa6D8ZdWnw4WDYz sNoiDW5ddNPcMQlr Sp7edBljqFxnJM7hNLPn ohinj403PqVmj8idZJQp oSHbGEjnZSO3B96cm4D4 ZFCgSZMuDMC2wRF8 wU3tpVmbojrtkZIniJwy rsZvzZsaUFnvDIejM854 ECGjaVcvUbCiVYv6V6Oz Qpz9XQYfxDhpMD5t hQBjFOqmHa3bkFjsvIqy KA6rAQSvyqddx192CvHj j0krDSWjyUTpIKdqTGY1 H26wl0G5SICcBQGj BBC9aRA6yA9bxWyvered bGVmdDsgdmVydGljYWwt MUtzH996AGVqmQmaSgVs yOx5P4QaFhb2JNHc jIqnGJ6jiQToDKvlKu0s rPwbqZpcOL6iMTYirhdz f686SqBta7azTVUswYHl DNoiIVH4W73ai2M4 JSReQBApSIW2cKK1qW1p bGlnbjogbGVmdDsgdmVy iZarPXuxDUwjT565MZIr cDsnPlBhdGllbnQg CMhiTTm0U4JhGwfroHF+ WO81OJNtSO91uOAbmAJw u9tbwEf2WaQvGLGlPZX5 gCcgLEtet5KiSPPa H51axOXqd5Z3DPAlmDzh oYBbOfOslCV8xV1bOLix cqaaf1ovuxwtMhrqf8ao jt62lU64Y05yKSul ZHRoPSIzMCUiIHZhbGln px5wkO0jNm3+PGNvbCB3 vML2sO6hEBXvVqK6PTxk B646HoSiaOZtBgol b7acu9ltgSp4IuP5GIOi gmWmqWjqIJT1n5AtBc01 G68mGCvhEDEaCMGjHAWz SPLhqVgvkp5sqP9m Ii8+JERroUT9jTV0qK0n XhFzSdE4LUodI249CfYc tNApNeaoN30iI4OsrMB+ LNZjMyj4XYIqhGhm TF2bxEWbXUjmIp9xWVN2 BzXmXcVtPTauR6MbASIg eeqsbnjytXY0YMUoFFBn nH85Pt2pwWtwCYHt kGJPvF3ostfgi9suyrow QhOcGNHtMTa5OGl2KFFw yBihDiJsVHV6VcZ4IJR7 jXTgeP0hyWntoyku bC4kT3EhJEZjuzpsEx05 xJ6bUfHhSwN1SJuvOkc+ D8kHPfQBUXmqU8zVPMKQ FGuROJ7PUDquqOZ+ IXAxAWQ6iJqvZOjuTPYr xJ6sQBJkB4y1NbZzCfG5 JZxyL1EiHDWxljhfUp37 tX1eEsUbDuQ9TVoj M8IimsI0MHNngGNrGPje DDC5R62cr0Y0ESSiCLXa RSM7pFS9tX0xuDegwjar bGVmdDsgdmVydGlj QQdjGCkmP160BWVtdXos AoD1KuIyCyAlPVJ8Y3Ss Usp5IZAyvKpyFW0guKAl KRzrDf9xqBqweVht IA1dYFZrdkhdNJCkiJ3e WJKjuYWxiAenWH3xQJLr uesqg547JnWtGBJ4WJUc yNVzK6IsqR8hAwUh DOJrWBAxE9FykBVfUSze Z520WBgeVkV6RACzypDx X8LpDWZhzLtpKvB6t1C0 Vf4yHIXMSBDdsxrf dGQ+KKLcSIG6sYhbYTmx FAWbgS2jRYGgO5t6GvSf BzK7RFhqJ0NlTOVcrdfi Ky07nW8hLoKjAcI1 RIglQ7EmsgJ3FSFrtKXb RIqdGII2H15mj5L6JXSl YMQsEIF6aBC8pT2afCij bjogbGVmdDsgdmVy lGqmGHjmMUedT919ETDw cDsnPkZFTUFMRTwvdGQ+ EVSfYXU4wHhwZUthRUTg dV4sYCVlG6n5UsAb XjQ6ELibB7OsREGxliat Ai48vF6vLyTbLsK7EKwt P2HxomC2XCZtvPLhBOvu KYK8P50dx5C4DXBz WHKjDFS1nOH8gA3bhQdj bjogbGVmdDsgdmVydGlj HIpyMEfqV850WMLhtPgm Pn3YSL87LN01K9Xw PjwvdGFibGU+PHRhYmxl IHdpZHRoPScxMDAlJyBz fGxcMQ7yJj3kQVQbWUQb wDeeiSWkTbKbs8rm JRAgHQfrRS4ifLeeH4Vb tEB5LXChp4p5Xp28T06u Y0NdaLZ+FIQxyJE3eCB4 hX7yBuAcLmW0CSkw P141MhMcaYQgEcpnl6wm k4bvdLx2GvQzSYZksoOq vXgzJYW1l8KwUp09R82d IHdpZHRoPSIyMCUi PUBpjQclkf9qoL7zNp0+ XLJhcGY7yZX7dR0yBqPh MzT5YAgmV136ZpJmiXRw PrnmI76eG8TilZS+ MLPrKzp6EVMrjOjpLH0v wVVpMTchDn8sMNC7DsYi CqOgLUzyP1FrYQCltywv fnmxkLO4HQXoGIZe mY43Zn6laPqoIf9dWUJe RWC6ZQFtcENaS2ZtlZ7a BxShYAGiXZJcY5UctWVh ZIwnI214UJglRwM6 KVXpxpTlY9UzRWAnuSsx DsL5v2E7Vk0VbYqvyJSs ZV9vXhXvIGp2W6MvQwk0 UMJwaDjoOQ1ynLNy RZvfSt0luZzrqIegOS6v IEVimizyl176AzEij4gs EVTmgFUmDNssFCQ5J89s d4T4OREoRLDjFVI8 cBF7sA5azVwmafzjxXMh dDsgdmVydGljYWwtYWxp L292EAHhqUmvIaTEUao6 E5FlFcv9DLVbpEor WZ4ylAVhJLoyYp9diGtj fRqzON5sOUZuvhrfu788 NwXau7erMVMqtDGyODtf MMC6C97gr1S5QOVy BUTwJMK2lVG3dX5psRcc bjogbGVmdDsgdmVydGlj FMntVHjgU231MWChaEnt Xb5WCzz7E8KnElt2 ZWEswHagWX1oeMJoAAcs Rd3gsPviiFhuOI9yAZVn hfezf576EeGxb5miSBZy iEAaHUhlERL9R01i w2K8SQTqYLOdUQZ8hSE3 bT7pzGpowyrzjHWogFed jfHugThkCKxlXDcyJ708 IHRvcDsnPlBheWVy OjwvdGQ+SJ72bo23V6Pw YoqkWcy3VGBiMJQ7lIZ3 sN0kEDPaJOebm0A1iPN8 N2WcelNrti4hz5cz YXB (more content not included)... [facility] C Throaton 03-03-2023 C Throat Ordered by Discern. Normal throat jonny isolated No pathogens isolated [facility] Comment on above: Performed By: #### 6 [id number], [id number] ####[facility] (DEFAULT)[address] [place] [address] .QC SARS-CoV-2 (COVID-19)/Fl u/RSV (GeneXpert)on 03-01-2023 Internal Control Pass [facility] Comment on above: Order Comment: Order ed by Radha. [[id number]] Performed By: #### 6 [id number], [id number], [id number], [id number] #### [facility] (DEFAULT) [address] [place] [address] COVID/Flu/RSV (GeneXpert)on 03-01-2023 Flu A (GXpert COVFLURSV) Negative Normal [facility] Comment on above: Performed By: #### 6 [id number], [id number], [id number], [id number] #### [facility] (DEFAULT) [address] [place] [address]387 Flu B (GXpert COVFLURSV) Negative Normal [facility] Comment on above: Performed By: #### 6 [id number], [id number], [id number], [id number] #### [facility] (DEFAULT) [address] [place] [address]286 RSV (GXpert COVFLURSV) Negative Normal [facility] Comment on above: Performed By: #### 6 [id number], [id number], [id number], [id number] #### [facility] (DEFAULT) [address] [place] [address] 15679 SARS-CoV-2 (COVID-19) RNA MILY+probe Ql (Unsp spec) Negative Normal Negative [facility] Comment on above: Result Comment: Perf ormed by PCR methodology. Performed By: #### 6 [id number], [id number], [id number], [id number] #### [facility] (DEFAULT) [address] [place] [address] ED Clinical Summaryon 2022 ED Clinical Summary [facility] - Emergency Department [address] [place] [address] ED Clinical Summary PERSON INFORMATION Name: LIA DESAI Age: 22 Years Sex: FEMALE : 2000 MRN: Acct#: Visit Reason: Cough; Throat pain; COUGH, SORE THROAT Arrival: 03/01/2023 14:12:36 Discharge: 03/01/2023 16:04:00 LOS: 000 01:52 Check In: 03/01/2023 14:12:36 Checkout:03/01/2023 16:04:00 Address: [address] [place] [address] PCP: Provider, Unlisted PROVIDER INFORMATION Provider Role [...] verbalizes understanding of instructions given Comment: Normal [facility] ED Note - Physicianon 2022 ED [...] Resolved Disease caused by 2019 novel coronavirus ([id number]): Onset on 11/23/2020 at 20 years. Resolved. Comments: 11/23/2020 CDT 16:07 CDT - SYSTEM Problem added by Rule (IC_COVID19_AUTO_PRO BLEM) following 2019 Novel Coronavirus (CoVID-19), MILY L from Nasopharyngeal Swab collected on 22-NOV-2020 16:44:00 EDT tested positive for COVID-19. no history (480453420): Resolved. Contact dermatitis (55918429): Resolved. Pharyngitis (2283095909): Resolved. Cough (68905174): Resolved.. Surgical history: Tonsillectomy and adenoidectomy (569051450).. Family history: No family history items have [...] any worsenin (more content not included)... Normal [facility] ED Patient Summaryon 023 ED Patient Summary [facility] - Emergency Department [address] [id number] PATIENT DISCHARGE INSTRUCTIONS Patient Information Name: LIA DESAI Age: 22 Years Date of : 2000 Reason For Visit: Cough; Throat pain; COUGH, SORE THROAT Arrival Time: 03/01/2023 14:12:36 Primary Care Physician: Provider, Unlisted Attending Physician: Tom Smith DO Comment: Visit Diagnosis: Diagnoses This Visit Asthmatic bronchitis (J45.909) Cough ([id number]) Throat pain (400358598) The Pharmacy at [facility] is open Saturday through Saturday from 9A [...] alcohol and/or drug addiction problems; contact the [facility] 29/10 Crisis Hotline -Text 4HOPE to 961507. If you received any narcotics, sedation, or [...] and treatment you received today in the [facility] Emergency Department were for an urgent problem and are not intended as complete care. It is important for you to follow up with a doctor, nurse practitioner, or physician?s promotions assistant for ongoing care. If your symptoms [...] so we can reach you if necessary. [facility] Emergency Department has provided you with a complete list of medications post discharge. Please inform your marketing communications coordinator/provider of your visit and for further instruction on these medications. Any specific questions regarding your chronic medications and dosages should be discussed with your primary care physician(s) and/or pharmacist. New Medications [facility] [address] [place], [place] [id number], [phone] albuterol (Albuterol (Eqv-ProAir HFA) 90 mcg/inh inhalation [...] Acute bronch (more content not included)... Normal [facility] Strep Aon 03-01-2023 Strep procedure control Pass [facility] Comment on above: Performed By: #### 6 [id number], [id number], [id number], [id number] #### [facility] (DEFAULT) [address] [place] [address] Streptococcus A Negative Normal Negative [facility] Comment on above: Performed By: #### 6 [id number], [id number], [id number], [id number] #### [facility] (DEFAULT) [address] [place] [address] 1966[address] C Throaton 02-28-2023 C Throat Ordered by Discern. Normal throat jonny isolated No pathogens isolated [facility] Comment on above: Performed By: #### 6 [id number], [id number] ####[facility] (DEFAULT)[address] [place] [address] ED Clinical Summaryon 11-21- 2023 ED Clinical Summary [facility] ? Urgent Care [address] [place] [address] Clinical Summary PERSON INFORMATION Name: LIA DESAI Age: 22 Years Sex: FEMALE : 2000 MRN: Acct#: Visit Reason: UC - Sore Throat; SORE THROAT, CONGESTION, BODY ACHES Arrival: 02/26/2023 09:55:01 Discharge: 02/26/2023 11:28:00 LOS: 000 01:33 Check In: 02/26/2023 09:55:01 Checkout: 02/26/2023 11:28:00 Address: [address] [place] [address] PCP: PROVIDER INFORMATION Provider Role Assigned Unassigned Errol Ortega ED PA 02/26/2023 09:58:25 Birdie James HVAC/R INSTRUCTOR Nurse 02/26/2023 10:17:32 VITALS INFORMATION Vital Sign [...] verbalizes understanding of instructions given Comment: Normal [facility] ED Patient Summaryon 023 ED Patient Summary [facility] ? Urgent Care [address] [place] [address] PATIENT DISCHARGE INSTRUCTIONS Patient Information Name: LIA [...] to help relieve symptoms, such as: ? Gvlu-tqp-swkvqbx cold medicines. ? Cough suppressants. Coughing is [...] other clear broths. General instructions ? Take djim-duk-aznbnmk and prescription medicines only as told by [...] infection to other (more content not included)... [facility] POCT Rapid CoV-2 (COVID-19) Antigen/ Flu A&Bon 02-26-2023 Influenza A POCT Negative [facility] Comment on above: Performed By: #### 9 [id number] ####[facility] (DEFAULT)[address] [place] [address] Influenza B POCT Negative [facility] Comment on above: Performed By: #### 6 [id number] ####[facility] (DEFAULT)[address] [place] [address] SARS-CoV-2 (COVID-19) RNA MILY+probe Ql (Unsp spec) Not detected [facility] Comment on above: Performed By: #### 1 [id number] ####[facility] (DEFAULT)[address] [place] [address] Strep Aon 02-26-2023 Strep procedure control Pass [facility] Comment on above: Performed By: #### 6 [id number], [id number] ####[facility] (DEFAULT)[address] [place] [address]359 Streptococcus A Negative [facility] Comment on above: Performed By: #### 6 [id number], [id number] ####[facility] (DEFAULT)[address] [place] [address] Urgent Care Note- Provideron 02-26-2023 Urgent Care [...] Resolved Disease caused by 2019 novel coronavirus ([id number]): Onset on 11/23/2020 at 20 years. Resolved. Comments: 11/23/2020 CDT 16:07 CDT - SYSTEM Problem added by Rule (IC_COVID19_AUTO_PRO BLEM) following 2019 Novel Coronavirus (CoVID-19), MILY L from Nasopharyngeal Swab collected on 22-NOV-2020 16:44:00 EDT tested positive for COVID-19. no history (187077792): Resolved. Contact dermatitis (88409764): Resolved. Pharyngitis (2240064329): Resolved. Cough (14028763): Resolved.. Surgical history: Tonsillectomy and adenoidectomy (264982806).. Family history: No family history items have [...] collect, Neha (more content not included)... Normal [facility] [place] 023 Urgent Care Record [facility] ? Urgent Care [address] [place] [address] PATIENT DISCHARGE INSTRUCTIONS Patient Information Name: LIA DESAI Age: 22 Years Date of : 2000 Reason For Visit: UC - Sore Throat; SORE THROAT, CONGESTION, BODY ACHES Arrival Time: 02/26/2023 09:55:01 Primary Care Physician: Attending Physician: Errol Ortega Comment: Visit Diagnosis: Diagnoses This Visit Myalgia (M79.10) Other viral agents as the cause of diseases classified elsewhere (B97.89) UC - Sore Throat ([id number]) Viral sore throat (J02.8) Viral upper respiratory [...] and treatment you received today in the [facility] Urgent Care were for an urgent problem and are not intended as complete care. It is important for you to follow up with a doctor, nurse practitioner, or physician?s promotions assistant for ongoing care. If your symptoms [...] so we can reach you if necessary. [facility] has provided you with a complete list of medications post discharge. Please inform your marketing communications coordinator/provider of your visit and for further instruction on these medications. Any specific questions regarding your chronic medications and dosages should be discussed with your primary care physician(s) and/or pharmacist. New Medications [facility], [address], [place] [id number], [phone] dextromethorphan/gua ifenesin/pseudoephed rine (Capmist DM 15 mg-400 [...] their own, without (more content not included)... [facility] Coding Summaryon 02-22-2023 Coding Summary HTMLBase 64 ZkulwsouSDh8xGm+PGhl YWQ+VU4DSLTyO40osLWh kP4mQ6VHSSvHAqbpEQAQ XHkDNwEaphNbMH1alXXl ZXJu IC8+LT1oUSTtDwvbqGPl m8J3iDZ6K36cjy8yLVyk vLZ5GYSmKsZoximtn1bk uDw7MKvoCnceWbAo NCXrdT00EMC6hJ11Kk37 zAYfmDNdr1pqtLw0FqMp BZSvMRS7vMjjRPrvy1Px ZQPiR82uePNit6Y8 IGNvbGxhcHNlOyBlbXB0 cU6aYYbaixxnn0rmjxyk Ugm8gp85hPWpy5I3vMY3 F5IzysG1OPGvfYKr ApnsmHOLoX3hzrekg1of owarGpUzBBAoDNe2MIr6 WRIdvOiyMsZeFG30AIC2 GKBqcuLcK5TyMTGe eWfyQgW5t1M3Hy1XQ0AZ EonlH3MSRKOQHSliqRA+ KO57ao81S6WkRtzrKvc5 CNUfKNJ3dYE9kW1h IUTmFKkne6U3mBG2K8Vy siQbry8hl1haUBDlQCta N34sgCRpa3A2GNRnjZO5 IMGbpJdqXhQakL95 Oyc+EDScpGjuh5IcUtno o5cpg9aixKy6WgydCLEm ajUabFegBKT1u5EcSi1h QHIplFV3oDI5gF1v XxDcLaS5APnkH907QiUy tSFyNccnI10nL1KblSX+ WATtPdi1OZBgdKsbFX0m M8FoSMUdqktagTKi cTtxYZ4kBKQsnhyqSCSs iB0nTVCdI9f9ZfKbCsS2 BAlaD7JrKWAizyihPe39 aI2dPcQqTjE3VLuz K4BdvkS2CRYpmJTbSQkn HBK5J48yq6B4XXCdPXIu FEV8lXN5jG6mnVfkqixv bGVmdDsgdmVydGlj CDkzPJrzB006NPPdcGje PkNvZGluZyBEYXRlOiAg MTEvMTcvMjAyMzwvdGQ+ YJLgOLS0nQaqTPTz vILlSQcqHl4afAqpmOpu OE0cCMQmjplpFAXqiC9f LDWtdDWhgPgjCZ2qWOOp flwbm434BmOjROR4 WQImkWIlG2ZxgO8rUrTw LFMuKCMxL1RkaCEwAMuq R757CJtoOgO8XBVgqjKt J2GjODOnlEisPwB0 j8Y2By2Fh6MqdxzqD0Vc yZQsSnVdLmkhPZq8I5Uv PjwvdHI+CN20HVSpPA94 LVz7EGE8nGosFDnr USZmC1NoxL3oWgRiDSIf ZGRkOyc+PHRhYmxlIHdp ZHRoPScxMDAlJyBzdHls FJ1cLf5uADTnVKMk wGigmVRyLdWon3okQSKa LKtgWP7fyKvfX1FisWR3 WUCps4z1Uj12Q18yS1Qt dXA+MHZtyYN7fAP0 hZ7iPoMgMqY2DFawU324 WzVglUOkVeoed9sqq0ol cZt6OeJ1JTIvjvNxdDnh EYB8n9CpEn08F57y IHdpZHRoPSIxNSUiIHZh dPyivk0wyU4cLs0+PGNv uCV6zFP6jR9uJvIlDuE4 GRozM482KdXndOBv Cjvwl5kgn9tvcTp2NyGq DCJyrsSujBxpFCI6e7Yr Ee80N3BjsOgqr2UcBuq2 ra53nMMcp3G8iQI1 O5UpHACochsofXQpcGow SL1qAANieyeiVUKjyS0w LMEuL1b4DmPlFyT5BKgs G6PejlI8UMZrkWEx TLOjtJQJgA5debhoy6xi vlzxAuTlWMYvIJp4TBv2 JSMloPexUxEpNWU8NrI0 XVC4vAGvlX3sySzl gkkhhU5yGsu+URC7gGXa jOFWOY5dBqnhaYU+PHRk XYX3yIjoJXpnNRVqmR3v MEIcD9a0CuPmYvY6 CVvqM2YuvnE5XCLovFKv LMPpmOITjF3bytfmb3ui swxhInLqTAGjHDa6MSb0 LWFsaWduOiBsZWZ0 EqE9QLH7uYNgzM7kiPgl njcfbD8rCnx+QmlydGgg ZFP6ZId7N0VaIee9JPTk dFjpYM8dcKBuQSal Hs8eeDlykAhvVA3fGCPm yiocm855YjDxp7slEWWy kJRjYHnkKQA6D93ss1O3 DHLhOEFoLFI8aQN9 dG9aeYlcatrfmIHdtKvx foHhkGpkFZskNBjeB756 JYJgrGnoIzIhIDo0E4Mg Aom7OGDmmPzuNE0s sOMrPChcWe9nbZoqyFmt NR2eRFQwpcbly735LcGu c8quYSHdkNQmYZnsVKC5 O47gw0E5NMNqDYLi NUU3iDW4aW4bdGdoajuj bGVmdDsgdmVydGljYWwt JCggY664POIgjBepMbCr oKu4X6XwBjb6PDIh wHqbNF2yrEEaQQvpFm3m jMudlLncQF7aNRRrzcfs p753YvAkn9ohLSHyrADu BXukIKO5L48qp4O5 UVMrXDTsYJC3eDZ3mF8k bGlnbjogbGVmdDsgdmVy sFczHSgpFHmkV031THLm cDsnPlBhdGllbnQg CTydKEj0X9IiNsokaWP+ EC69UTDaYK92vEEifHYn k3kfvOm1HgCsDYKaEOW4 xMswFSape0FbXNSp S52uiGKmp0X4QGMujDxo yHHyWeIsaLP9eU4bUOzz xfnwa8nxfrabFgivl4zh ej90pJ59Q36uUJml ZHRoPSIzMCUiIHZhbGln sh0uoK2lDa0+PGNvbCB3 cDV9bD4vGDEnTwA1XQng S973NnJpcHRcQczv u9zio7fyuWp3QuJ9LSTs ccEazKuhNDP9r1NhNn82 B08gWGjmIBDgNXYsRYSw STXakAsxjh6rjS7m Ii8+PTIjyGJ9jTG8wC5w FtPfLkG9XZttC960PhNh vOThJqeuE90kW3PsbNY+ KJRxZor8ITTfpMrq DL0lcVPsWFoqMv9bRGX5 YtXhBlTsJPwpP0OqFLRo uomkwoyyjEN8RBMzQGLv qH34Ns4jrVwnJOGu qTPFxC9kulgfd9cepalm HuBuSXQeCKx5RTz8UDWr rRvoXmDeJXI0RgX8MMG8 pDNqsP7fmWazgmdl xG1gI9CdPSSscvdjGk16 kD5zVeLbBtK4OQupAyv+ K3wNKbHNVVtzQ3eVKXHG VGhOFD5GLSywwVS+ SPVqRAZ1lPcyBKhgKTTg gL9bYCUyE4x2MgUmMaH5 JFfwQ7LmSFEuhbuyOu87 nZ9pYkAyYmI7MDys G9KfwoH1SDXonRLdKSei ZYV0K07ux8E0KDJyCVKi LCP9oRY1qC4idMltthwl bGVmdDsgdmVydGlj LFoiCJwzW556MAGktFrc TsD1VrFyLwVaRAT2T8Xa Rsn5GZLrbDduQN6peKHd UUtoDv6pgBhwrXda DO2wHYOrbgyhWGHxnS7s QYPmuTCtnEudRC2eUDVc ilqqn113MvPwYCX0DWXg pTMmX9LvsQ8aMmNt PCEyFEBcA9CulKXuJVhe Y203NIzwJkG5FMEglnSa X0VeAQVjiHeqKdL0b0B3 Vu0qZDISATUykdba dGQ+IGYpKSC6zHbyOQxt GYMvkH8kPEPwK3t6ReEz QtP5HWjgM9LzGEJkmqak Ea77zN4fJeFaZoY4 YGolX7BzprM3IZPgmUQw FZjaSTB0H52sp8F2SAQa HSGsCFJ9bMH7aN3xgVpv bjogbGVmdDsgdmVy pDimNFdsTUkaS010LRTh cDsnPkZFTUFMRTwvdGQ+ SJJhHPV0aBavFSbqWKSz tG1dFGYlX1s5LdFl XwT8PPruR0TgAIZgrypo Zh52nA6tEoOvNsN7SVgf U5PalwZ8ZARonTWwZKil RTW9S05ms8C0XRTo ZFSlTRT9nKC5cE0jeGzh bjogbGVmdDsgdmVydGlj QWqwHLhxU303NJDtyOep Tn7YXE70RA93F8Jn PjwvdGFibGU+PHRhYmxl IHdpZHRoPScxMDAlJyBz vUtbYF5sJk3oXKYjJCVj nBmghQYjZwOwi7gd VEMpUEhgYB3dgYbfH1Ss zIS4ORAhv2c8Lp30X12a Q9OedSA+LDErgDF4qNJ0 yM9sBkDgXdV9KWdg Y487CqLccXUtQnkts6bm n2zqjMk2OfAeUZUfzoZf kPjnGFA6m8ThAy53V33b IHdpZHRoPSIyMCUi PIOraGairh0diY2cEn7+ MNKqhLU8fVL1sS5oEeXz VmA8LNooM614KiHwqQHo BiuvN64qQ1DeaVW+ CYNxVdk6UNUkoMbnQR0c qGGbJWfxIf5qRKH2DeBm GbMhYXjsY3OkKVBnpuhy yarluJV9MMMnDANm wN06An2efLonKf2oIQLo MPY9OLTnvLWoK3YaqY7x CjZgFRKfQCPnW1FwzKTa QJuzL386JWrqKcH8 XQDaibFsB0FtGLXpzYuv DuI2d0L0Hs3BeBmhpZUz IN5wKbYmNOn6L7XvQwd2 JNCahWvqQY7gnWOx VNclDy9rxCopuWreZB7y QYUnzrsgq413RsBoz9xe RBQlzEJcGXylZZP0Y04x e5F7TZTrTSBnMCN7 mJP4pP8caRhqteqzxUWa dDsgdmVydGljYWwtYWxp E576XTTwbTczRiVTEon4 I2MwCdk3XOQemRrj NJ4ddFDbYSwkHe9vkQcg tCdqIW4xNBLazhggo037 XuAww6cvEFSihOMfXTfm CKU2T47wl8B5GDKz RXJrTFP3uFV9vE4lmGlo bjogbGVmdDsgdmVydGlj TLsfLFjrQ100SPEbgSaw Oa7LIur0F3QfEfs2 ZDVxfDwxRZ9ljTNvGIxw Un1mbTxpzRfuBR0oCAPa wznep550FrSjq9mhCAAf vTVdCCioZLJ1Z44s m9A8IBWlGFQlYAV8oPF7 rV0yjJgnkafnmBProLie nuArbBvxAJqhEUdrL666 IHRvcDsnPlBheWVy OjwvdGQ+LI22ue31X0Dv JvyqUzg6CFYvCHD7cPA5 iX7oECZhEWkks4E8wFR0 Z5NsggWwej7qf6yw YXB (more content not included)... [facility] ED Clinical Summaryon 2022 ED Clinical Summary [facility] ? Urgent Care [address] [place] [address] [id number] Clinical Summary PERSON INFORMATION Name: LIA DESAI Age: 22 Years Sex: FEMALE : 2000 MRN: Acct#: Visit Reason: UC - Wrist/Hand/Finger Pain or Swelling; LT HAND INJURY Arrival: 02/14/2023 17:07:31 Discharge: 02/14/2023 18:05:00 LOS: 000 00:58 Check In: 02/14/2023 17:07:31 Checkout: 02/14/2023 18:05:00 Address: [address] [place] [id number] PCP: PROVIDER INFORMATION Provider Role Assigned Unassigned [...] Therapy Follow-Up: With: Address: When: Regla Hernandez [phone] EXT: [phone] Call for family Physician Within 3 to 5 days Comments: Call for help finding primary care provider. Follow-up for reevaluation. Continue with rest ice and elevation using ice 10 minutes out of every hour as needed. Return for any worsening issues or any other problems. With: Address: When: [facility] Comments: [phone] DIAGNOSIS: Contusion of left hand; Left hand pain Patient Understands: Yes - Patient/family/malissa talberter verbalizes understanding of instructions given Comment: [facility] ED Patient Summaryon 023 ED Patient Summary [facility] ? Urgent Care [address] [place] [address] PATIENT DISCHARGE INSTRUCTIONS Patient Information Name: LIA DESAI Age: 22 Years Date of : 2000 [facility]: [id number] Reason For Visit: UC - Wrist/Hand/Finger Pain or Swelling; LT HAND INJURY Arrival Time: 02/14/2023 17:07:31 Primary Care Physician: Attending Physician: DORA JASSO Comment: Patient Education With: Address: [place]: Regla Hernandez [phone] EXT: [phone] Call for family Physician Within 3 to 5 days Comments: Call for help finding primary care provider. Follow-up for reevaluation. Continue with rest ice and elevation using ice 10 minutes out of every hour as needed. Return for any worsening issues or any other problems. With: Address: When: [facility] Comments: [phone] Hand Contusion A hand contusion is a [...] elastic wrap to support your hand. ? Obrl-gey-tsymcxk medicines to control pain. Follow these instructions [...] or lying down. General instructions ? Take srpz-nax-ygrbskr and prescription medicines only as told by [...] provider. Document Revised: 07/13/2021 Document Reviewed: 07/13/2021 [email or web address] Patient Education ? 2022 [email or web address] How to Use Cold Therapy Cold [...] the area (more content not included)... Normal [facility] Urgent Care Note- Provideron 02-14-2023 Urgent [...] All Problems (Selected) Anxiety / SNOMED CT 14174902 / Confirmed Acute depression / SNOMED CT 1006110357 / Confirmed Chronic post-traumatic stress disorder (PTSD) / SNOMED CT 003162587 / Confirmed Pharyngitis / SNOMED CT 3370316435 / Confirmed Cough / SNOMED CT 75413641 / Confirmed Objective CONST: -Well-developed well-nourished. -Acute distress: No -Vitals: reviewed. SKIN: -Gross abnormalities: No NECK: -Supple (ztnb-xb-vvnyi): non-tender. CARD: -Rate and rhythm: Regular RESP: [...] and Plan: Diagnosis: Contusion of left hand (UZZ85-QK S60.222A), Left hand pain (UYK62-MS M79.642). Orders Orders Patient Care: Brace/Splint ED [...] [Verified on: 02/14/2023 18:01 EST] DORA JASSO [facility] Recordon 023 Urgent Care Record [facility] ? Urgent Care [address] [place] [address] PATIENT DISCHARGE INSTRUCTIONS Patient Information Name: LIA DESAI Age: 22 Years Date of : 2000 Reason For Visit: UC - Wrist/Hand/Finger Pain or Swelling; LT HAND INJURY Arrival Time: 02/14/2023 17:07:31 Primary Care Physician: Attending Physician: DORA JASSO Comment: Visit Diagnosis: Diagnoses This Visit Contusion of left hand (S60.222A) Left hand pain (M79.642) UC - Wrist/Hand/Finger Pain or Swelling ([id number]) If you received any narcotics, sedation, or [...] legal documents With: Address: When: Regla Hernandez [phone] EXT: [phone] Call for family Physician Within 3 to 5 days Comments: Call for help finding primary care provider. Follow-up for reevaluation. Continue with rest ice and elevation using ice 10 minutes out of every hour as needed. Return for any worsening issues or any other problems. With: Address: When: [facility] Comments: [phone] Medication Information: The exam and treatment you received today in the [facility] were for an urgent problem and are not intended as complete care. It is important for you to follow up with a doctor, nurse practitioner, or physician?s promotions assistant for ongoing care. If your symptoms [...] so we can reach you if necessary. [facility] has provided you with a complete list of medications post discharge. Please inform your marketing communications coordinator/provider of your visit and for further instruction [...] This is (more content not included)... Normal [facility] XR Hand Complete Lefton 11-0 XR Hand Complete Left CLINICAL HISTORY: Left hand pain. Punched wall. TECHNIQUE: 3 views left hand. COMPARISON: 12/15/2019 RESULT: No evidence for acute fracture. No dislocation. Joint spaces appear maintained. Soft tissues unremarkable. IMPRESSION: No acute findings. Final Signed (Electronic Signature): Gavin Mahoney MD 02/14/23 5:54 pm Technologist: KELVIN PATEL [facility] Coding Summaryon 11-27-2022 Coding Summary HTMLBase 64 HggmyjiqGSn3aTw+PGhl YWQ+WK2BDXFmM04ldTAv bC6mP6NBTQsAMsbaTUEZ NZtZAdNndzOeSS3kzQXd ZXJu IC8+RB9nGHYiWrmfpYCv f6S5pWV5F51eam8kJEyi vQT7BPShNhFkfksiq2zp sYv4FRloVptzQjWn IDWmuW03GTY2rY85Sq32 rMAyoUAhc5diaEv7MeAk DNChPOC3yOmjAKvam7Ih KQOdD02urDXor9U5 IGNvbGxhcHNlOyBlbXB0 zL9aNSuwpnxbr6xnfxsa Syv2os90aSOfe2N2rVM9 M3QcclJ4YGXseHIi EuealCXRuW1gkuxrq5io tjkjQcRhPYSvLVy8UCp9 QJHjmWlrIrHqYS58NPW8 ZQTwsrZyL0EyQPJt oEqcOrL6c2N4Oc6BZ5EQ WortG0OZDRHQEXfsfUI+ ZH24cc23T4OvOqsnZzv8 DTAgMFT4iBA1bP5k XDPxVBbcj0N3pQQ1F7Mc swYubt6uk4xrMUErCMmk H51thTNgz0O3GNTkgXH0 DBZfgMkkNiMbhL45 Oyc+PXQqxUfpf0ViAmbm t1bqz0xddFe7SiehIQVp qvPuxUsySCG2d4NuGw6z DGJplRG4qVI4pA4v CoSsHjG8LOpeY130TzIj pAWdZhfxG09nN7CuvAF+ ADCxAgi9EDGfzDwwGM9i T4HkNOAwigyydIUy hSfkWR5uMLZzstgwATUe uH0dTDTuW3m0EqEyJyG5 XGgxY0ApOHZepiwaXk54 rM4yXrQrZnY4LJqv G5HotfA6NLJmjWVwFWeq XKW7W87nt5Q5TBEoUKSo KSQ3nSA1jK3lfRxoceby bGVmdDsgdmVydGlj DFyvDOalN104PIZkoXsy PkNvZGluZyBEYXRlOiAg MDgvMjEvMjAyMzwvdGQ+ TIWkRNI1oKmeSUJy hUVyWFgxZs2vqWdaiVej QB2uWPYwtlbdJEBbpE3h PVQglCArmNmuOR1bSIOe ipala998XoHvPRP5 ERTllXZfQ6PtdQ9pAoBv QJWqOYMtX3TryZLhOIdh O341SCdaJbE0DURbwhEw P5NgGLFepInpGmX7 l7J5Dn1Pn3SyfpeaW8Py hBQjGtRwPhurTIw6S0Oa PjwvdHI+ZV71UHWpBM86 PZb0VLH2yYfiGMyu QYYgY8QcrK3zZgJvWNGo ZGRkOyc+PHRhYmxlIHdp ZHRoPScxMDAlJyBzdHls GS9nTh7jJOPtRZVu sQludUGtXlVos7quTGCp DGxbNF5fpBreV4GihIY0 QWVgo3b7Og38T83uJ6Sv dXA+QCNxwYK8uDG3 wT9eQmYkIrB1VShzB748 HbQzgXGiDnzag3tfk1tk qSw6YaH5DXZfebWasZme UZE6t9SzPj71R50e IHdpZHRoPSIxNSUiIHZh dQyaoy2hcB6zLb6+PGNv mKR9qVI3yS2cIcTuPqB0 SBhuO386ExEduRZm Xtjrg7max6vtaXf5YcHi DKLppeAocUzvUVK3h3Kr Ww22Q1ZeiUxxb2MyMhv6 qx89bSJvs3E0jDH0 W2LlASUqlhadeEMivRrz NP2fNSEhysvpAUQkmU4n EKIyC2v7CiQhCsE6OEzm Z6QqjaA0YWXelQSp TQOxbHKFoS6qfjbcp2lv hgucMfUrRBQcAKg4LTk3 KLGubGskEhLlKPF2MtJ1 DHM0kZTywT5haEts slfgrU1eEeq+LAA5bUGq ySIQLU4jZmqvaVS+PHRk CFQ2qUpeGEymFPXyyK5o ZXQtI0d2MwPaLvX9 MSjzU0CfxbA1HWSxsOFx MRNxkXGRmY5opdutc6ao slfaLwPdBXZxHHa5CAb6 LWFsaWduOiBsZWZ0 HiK0ZQG2bMAhhH8kyTbx wvuwsE7vOzi+QmlydGgg NJS7ZWa0G0FmLbz9FUXc sWbnBH4beFLgDOdu Ae1zlPecdDbaUJ7vOXLl vmnvx003AkXqc2tiTIDv wJKuMFduQWN8T20ka4K4 MJHjPFXqZOS0xWL0 zY9evWehodoeaNZnjNqk srTcfVadPVbsVHknK338 YHVumYahEzZoEYy4D7Pl Kcu8KXZtlEryHN3p bQNaRXzlGg3koTegnFqb NF7iJLImgmmku822BpCe y5tcQXXrwBFrTQpiCZB2 X33gv0Y5EGDsYBVe EDL5qNI9eU0cyQbqoyiv bGVmdDsgdmVydGljYWwt SGoyD860SSHaqGfgHaSy nXa7D9EvQin6RKDr cOgkZB3rzAZoTJmvSi9t zJiowBboQX5bVHIpqmzn m624SxKag9ybWXPmfVQo LMuxSJG3O65vl4T9 LKYxLSJyRSE2wYJ5tL7v bGlnbjogbGVmdDsgdmVy gTagCLhjSEtpG423AFTa cDsnPlBhdGllbnQg UTwuWKc7F1RjMyirvFR+ OU24KGXaIC20nBTpmBTk r9fexAz1IkWqAXDfJQK1 uRyaWYpwk2EhMQKg A07xrVFws3B7VZXubSfo xODoDwZicBQ6xG9rSJfe rfbcm5bqzlllWtaii4mf yx44yA05S36sBCkm ZHRoPSIzMCUiIHZhbGln gw1arN5cLe0+PGNvbCB3 dBV8gH2wKYWdJiL1YKgt R556KtOmgOYuZoso a2csp4apgCw9WaR0RWJa kgLfeKzhLIE5o8QzMc82 U24bJYzeRBJrIKYcVRAo LTHqoIcpma9cmE7n Ii8+APUrsYA5gOD8xX6g KfDaBpJ5BNhoQ522KyGg iJKsUnkhN70rR4JkqNU+ GJFjEwy5GOJecMhn AN2yeOXwRVewXd7jPEP6 FbUgJqVeXTyoS8QrCLIr eseiwfxonEV7MSPnUDFr gX13Bw2dnIbvJMYn cWDFjH2bhfnjy4ubupcg RnCpJWNvOBp7ACy4ZKGc wJoqFnUuCYA1BjF1BRQ6 gXLmvL8kwAjggekm jU8iM9WoYPEjtwkfJo34 hB1fHpUxJxP0PMykMsv+ R7yLWnDMBPuqK8jCBTZJ BVbRPI3BCOoxeUG+ OXYxXGT6aJaoWMntHOYt mB3tSHPeJ0y4SeCcMsR8 JSlbS3WiUGElvmfvZd66 tL3uJrNsIoQ8JIea X2YeioW3UGBklURuBXsc VIU9O95xl8L8SJZdVUSb UOI6qYG6sF4kcBfktfpn bGVmdDsgdmVydGlj SHpsSQahQ157PSGcwCzy MqX8JfWtPrBsQOS3V8Du Vco7JTVhvLsiIJ8nnRCs RIkpBj0qyQcifAng XU5dZBGnkpetQBOckD1j HHQjtMDivSucPE4hDAJt lsxev474YmVeDVB5QSUv zPXbR8XgxU8eMdYt HSCzWHMwA3IvxZNrQXcw X839TWdiUhF4EXRgrbGk O6BfOWYytRtsQqO0j5Z4 Df5lUEUVQEYacael dGQ+XHZaICL6lLlnFKwy GRBnkQ3wWTZnP3u2WrYj CiP9KSwuF9TcCMFihfvz Bq97bX3bLzVgAhM9 KOrvF1MubpR2JHEhoWKx ODnfCFB9E85ng2C7ZTWo ULSfHYJ1hGL3gI4eyPtf bjogbGVmdDsgdmVy nTupLLwtELzmV427SZRb cDsnPkZFTUFMRTwvdGQ+ VANxYFD1gWpqADexROEe vP7lVUHdW0m2MbVh VyQ7COlmI3HaNPEusavf Aq59kY3pZeYpIrE9DOsd R3CfocH8KIFvwIOmLEak CJY4C76yn3U5WKUr YWYbMPG4iZJ6oE4ftKhx bjogbGVmdDsgdmVydGlj GCkcBGluY900MGOhpIiz ChEiUBNqNA1fvHxw dGQ+XN24yw98L9BmNjpn Xot9VYKqJIS8wVT6dF8r YJGvTCyoe7H1fGZ3M0Vw xdZheu0ib9sjHBNs XDhgU33wgNIqg2Z7GMIr uHK7ZZKvnOhpIgOqmI75 Oyc+IIYbrZhiu5LrNykc z9zft7tyvNj3EcHd YYXnrnGuyObdHYY3a8Ba Tf23R07bKLhuSXQkMAYe GCPdEQDyqQfzoe5azY8h Ii8+LIItmLZ3nPS1 vD2pXaRoPmZ0LDxhD803 SlBzsAFoQijlq4uyu2be iTg9FaUnTHLvdwUnkBqw AUK6o1SoHu91C9Yw kBflf9HjLfs4nq68xDAq p0U0oGU0G5VwXMDcwznb lRShxLdcGJ2vBLFoslww QRJmfH0aTIGhG1t6 QnIlEjE8UMqqN2ZcgjM5 RBFtnMBqGCCrlGLQyN8n fwrwu6kvpiixQkKmJHLk XBn4MQz6KNHrsWuj TvWuPCG9ZqZ2NAR1aZUz jM0akNkdrcyzdM4jQld+ FDr1p6mlhWKdDI1vvBK0 FY80UW32bTLqr4E0 oSF1V5BtVHHqdwjknvdd hXO4LZHfJGYydQ50Ng3u yXciWr8xPNLxUSW8QPNz vWXjB8HppC3eCaWc KPKpRJAqT8BlvOFtMHuh F902ARbrGgC9CKOykbXh J7JtPTPeyItaSpK3u5S0 Wn4LAJ96XE86AU58 pZOsy0D7sST7J5JuEONo ovajzyulxOH4RDHqGTVy wO37Ts8ipCisNd7gNYGk VDF9HCFeaQIyR7St hU7zTjUjGTQoAWLuT8Kp pPKoTNwlK962YRfhBtW9 JPPijhZmN2UsGOZsuHnx RpE9n3T6Sc5KDm44 KF52XP04cMRzh1T2eUD8 M9HuBRWkyogxrdnmmKW2 LPEfHXQsmV36Hk3diBlc Rp2oEAPfZCK2YNNm fPJmY3FowF4xUrTaILMx QWMeD6GqqQWoMNztF971 UPhgScD3VETgdoNcN6Bd WAGuuNetTjF9y6C6 Jy3KVHnedgt8I4RiKwid dHI+GS66IAKiAC73oRGv jEEcc9fiaPq7RaKeUKHc JQS8jQcjFZfwu7Hk ZXI (more content not included)... Normal [facility] ED Clinical Summaryon 2022 ED Clinical Summary [facility] - Emergency Department [address] [place] [address] ED Clinical Summary PERSON INFORMATION Name: LIA DESAI Age: 22 Years Sex: FEMALE : 2000 MRN: Acct#: Visit Reason: Hip pain; LEFT HIP PAIN Arrival: 11/15/2022 16:28:10 Discharge: 11/15/2022 17:02:00 LOS: 000 00:34 Check In: 11/15/2022 16:28:10 Checkout:11/15/2022 17:02:00 Address: [address] [address] PCP: Provider, None PROVIDER INFORMATION Provider Role Assigned Unassigned Anusha Palomo CNP ED PA 11/15/2022 16:30:26 Jayne Zuñiga HVAC/R INSTRUCTOR Nurse 11/15/2022 16:32:34 VITALS INFORMATION Vital Sign [...] verbalizes understanding of instructions given Comment: Normal [facility] ED Patient Summaryon 023 ED Patient Summary [facility] - Emergency Department [address] [place], [place] [address] PATIENT DISCHARGE INSTRUCTIONS Patient Information Name: LIA DESAI Age: 22 Years Date of : 2000 Reason For Visit: Hip pain; LEFT HIP PAIN Arrival Time: 11/15/2022 16:28:10 Primary Care Physician: Provider, None Attending Physician: Bennie Yarbrough DO Comment: Visit Diagnosis: Diagnoses This Visit Hip pain (10339262) Sciatica of left side (M54.32) The Pharmacy at [facility] is open Saturday through Saturday from 9A [...] alcohol and/or drug addiction problems; contact the [facility] 29/10 Crisis Hotline -Text [id number] bm [phone]. If you received any narcotics, sedation, or [...] and treatment you received today in the [facility] Emergency Department were for an urgent problem and are not intended as complete care. It is important for you to follow up with a doctor, nurse practitioner, or physician?s promotions assistant for ongoing care. If your symptoms [...] so we can reach you if necessary. [facility] Department has provided you with a complete list of medications post discharge. Please inform your marketing communications coordinator/provider of your visit and for further instruction on these medications. Any specific questions regarding your chronic medications and dosages should be discussed with your primary care physician(s) and/or pharmacist. Medications That Were Updated - Follow Below Instructions [facility] [id number] [place], [place] [id number], [phone] Updated: predniSONE (predniSONE 20 mg oral tablet) [...] Stop right away (more content not included)... [facility] Progress Note - Nurseon 11-06 Progress Note - Nurse Patient walks to room 6. Patient is alert and oriented. Patient is here for left hip pain. Patient states Saturday she was in the shower and bent over and pain started to come about. Patient stated she had difficulty getting out of the shower. Patient has bilateral low back pain. Patient was seen at [facility] on Saturday and was diagnosed with sciatica. Patient is to see her PCP next Saturday. Patient was prescribed Flexeril and Naproxen. [Electronically Signed on: 11/15/2022 16:49 EDT] Zara July DANIELLE [Verified on: 11/15/2022 16:49 EDT] Zara July DANIELLE [facility] Coding Summaryon 08-28-2022 Coding Summary HTMLBase 64 VkqvgnsgBHh8cHh+PGhl YWQ+CG1HLJHbY92sbSIi yF9pH8OIZViVZenlTSTJ LMoHBeZspxFbQD5rfOLe ZXJu IC8+LG2nZRIhBpjhrRTr r1Z3jZH9S36qqx6xCIkn eFC6GWWeCcQkubamc5qp jRv2WTanUsngFeEq SBQksZ39VIQ3lP21My53 fUMjqLAtu1gocTt9XpLo CARfPNY4yBpuCTxbz5Vk NQDvU77uxFMlx2C4 IGNvbGxhcHNlOyBlbXB0 nA3mAWhbuitew5dwaxhx Rzc5ha57mIHdv6U3jHU2 I8BuufC7DCWmeJMf ModuiRTZlK2awircm0vj oyliLoMbDRYoTAj8UKk3 QAQjhFsfOeFpGZ23YZC7 NCKqvdZcW8ByZGKy aWwfUuP8t1B9Ev2RR9DR DdaaQ8GLGXXRMJvpbLL+ OP66xt27P8HhAlqdAia0 FPJhFDS1rKK4fW5a XZIrICqht7R7eYE7M8Ux puKias9gs5vmGWFuKXie J76beRAbw6L7LIDqsKJ9 TLXqzSabCbKilW92 Oyc+IPNbsLczh5RvHrwf n4qre2oajBp1QtnoQABu mgRspGzsEEL9m5NxUp5d XMXvaUS2iDZ6dT2i JuKhFvQ8UWzhL770AjHo jPIbSsbgB62dY2DsdMS+ DLOzKqo5FLTvgJcgHS3x S7FjMBBgfdaqcRDg jJrzHN7xFPPruhqvSFYm qL0fTVZwI0z4LcHyOxG2 IAvzG3MvMWUpziupJk33 gV8fMaHsAwT6ZFoe G7JhlyD8RSJamTEeQVzv BOX0N62mq7P4YCNvSYIs YTD9aGK9bA0tyCpwxekp bGVmdDsgdmVydGlj WTriPDadC721QOXqnGyx PkNvZGluZyBEYXRlOiAg MDUvMjMvMjAyMzwvdGQ+ XGRuDMO3kAyxYYWr gECxVMmkLz6wbQmawKbp VV0uTOJdyxcyWGQgrX9c ESUecHYyqGknII6xFDFm caujp879TbLaLUS2 JNLrlPCwZ7EkwD5lRhCc JRGnWDWzN1QzvSOfGNbq D632FNzdMqP8NQNexcBp S9FrAZQrtSplFrF7 r2S8Ov1Qv6WtdshnA6Sd kVYoKjTxCyxeBQw1Q2Lm PjwvdHI+TO31WGUvZP71 AUg2OEO0sDoaSRxb BMBmF7PxuZ1kUeBkWKKk ZGRkOyc+PHRhYmxlIHdp ZHRoPScxMDAlJyBzdHls GU2dRi4zEULfQAFc rCubfZGtUxCol4jvJJMu KHmiUV2pcGvsL4BaeED4 TYDib1d3Vf81B86dH8Mv dXA+FOSvkIG2oKE3 nN8aDlGyEeB6WFpkP741 QzDcyOZlLxhyn2okb1ja mIy1PcQ0IRHqnzMvbUzh RKC4y7DlOj34I09i IHdpZHRoPSIxNSUiIHZh yTfuut3uiS5uFt5+PGNv fNE9hFO3eI3hWmPdGpM3 HFmvY267XiRbmMFv Acxgy4dmd0ggxUn3JjXh CZXdhlVkaNlbYIQ2v5Zw Ru03G1RomYkir6JxCqy5 yn36nHKdz1N4sGG9 U3IkJBJltswdcHVidMrx QJ8xATYhobdpESXkdL0s FMKuH3x0YaUjOhI0GIvq J4ImgeL6VGWjlZHt WLNheOJAyL4rvzfck0eh prgnNwSiVAByQOz2QWa6 BQJsdYjoCmJpTGL9ZfL0 KPH2dBHznU4jgGia teoqqU0vIab+TAJ1dZYc lHYAWF9tDmyyjDQ+PHRk TSJ7zYovWVutBDXlzN3k UZCyC5p3NbIiQtL2 LDotH9QbkwP3SRPnnEJq AAKkwKWEsX8rshlps0dl kcomTnZaEIDsGLs1TMu4 LWFsaWduOiBsZWZ0 TqV0KNA0qQTsxA7hrXwz aeavkW5iMvf+QmlydGgg RKR2KEv7K7TiCdk1EGXz aUnwXN3smEXnDIzb Pi7adXcphNzeNE9hRJNv apunx318NuHcg6bqMIHo tWPsIBacTWB4F36dt6J3 ISPqIFMwMWQ9fXO1 eF1dhSogdsgouEEtfDga fnUddHzdYEuvHCngI355 UCBhpAdhMmDaHEr2Q8Xj Bha4PTPqkIslXT0f zAKzMByyQg8vvAltyIkl FB4fEZQqctfno862UbMl z9yqYTVlfTJfVAcnQAD0 I50ju3Z7UYXeBYLx RLX3eHV2cG1hlXuflhlt bGVmdDsgdmVydGljYWwt LFffJ424CNLlrXjdBeIk eZc2Q2VvXve6BTIf dNcvHS0nmXYoXWxgRs7b qXaceCddFK2wBIWponng v236FwAgr3dcYAHbzBTa ABqhRCS3M29gh8B1 TPIhDVFaTXD5wUY0bG1v bGlnbjogbGVmdDsgdmVy yQpoCMrdODdfI170ERPm cDsnPlBhdGllbnQg RAcoBEc5N7ReCkilmBV+ MK39SDKhPB99eLVqpEEs g6zknOr9QrLdIWQbFPQ6 zQzrILygq7YrHDVx G55dpGRwg2I3DREdiDfs xNMjTkLkyBB2jU6kWVbt zaunw0hvqxfzSbwdw9gx hp88lW32Y05xXNjy ZHRoPSIzMCUiIHZhbGln ft3otO5zLr0+PGNvbCB3 eUG2qR5nFBSpSfN4TMlg O633QzCxeXWuFhfr s9blo5svmGn2FlV9YYRa bbXngXqjPMG7c3HhJu31 W85rHVheVAHvFGOdNILq AZVboWmxta7nrJ4c Ii8+BMUbvHP7gEQ4oZ3e GmFxGnF8RWgjS236BnOz aTCwEexqU26aR4ItyTL+ XZRsBdu1QOTyrVpq OP2lzBZfAPqvXn1bJZM8 QmHwIpXiCGgzF9OiQFJx fvxepxpifZQ1AYZwMIPj xC99Hi5ycFkmFYWv uUXSaP9fookgd8ptyhsp XbPbABRuUDb9WSk7MEUe aNwmBtXdOPG9MbH3AZB8 yVQucT5okOidjzns bD0mU2BiPUMycycnBn70 pI0uRiUdAdX7TCkkDoy+ R1xQFoLVMDzkR2iQUPNS IWgHKR9CLMwslTJ+ FCFnJRZ2dXkmPKaqHZXi lX5pMLUsO5a6NaTzEgX4 JZplI7OqEBZqjenaMv22 lG1gYgBpNcM6ZVuw W3SpivB5PIJofHJgDFcx FYB5V66xs5L6DNCkUTPe VTQ8iYU0tH8voUsvoicr bGVmdDsgdmVydGlj CKbwCWsjK340RKKkgXpp YiC6WpOpGnXtSOU9G5Yi Edt8PNXutEynUS8yqSTe PBhjIp1dxTdnsGzn LN9rDPDscvyzHPUntZ5l FJUowWSzeVtmEV2mXEXl lpvns164HnHhXGN6XHJy yMTmR3PkxM0uAnGg GUSjESYfY1GhlIIlGEwf V628ASuwEzR6EESdlaIh I6DdTDPkfFgbWuU5o8R2 Kc1qCVNMKFUvmdxv dGQ+AFFiLSG1gYozZZry RFCiaH6aEKGsV7p3OnDq LvQ8SHrnS1GpZNDwcqfq Fy15tN3nJjWfOpJ7 KLoeK0PbmiM5ETSqjRQl RFcwCKU9N78zn4A1PUQc YUUoIHX3kCF7cK6pqAzm bjogbGVmdDsgdmVy kVpzBUmaBDpqU065VJCd cDsnPkZFTUFMRTwvdGQ+ EUIbMIY2eTqyAGdgKUDv hR4iKUNeK2v2PiEi OxW7RIskV7KiZOIqvsqv Xo83aY2rXyJeLoA1DAlr J7VcszD6IYRefCErRJnf QMK6E07sf9O4UFWs CHJkITA6sMP3fF8uhBrw bjogbGVmdDsgdmVydGlj EDkfRDbiM744PERfdBig Xt3FPE96OK15J2Cz PjwvdGFibGU+PHRhYmxl IHdpZHRoPScxMDAlJyBz yPofQD4dIi1sVHMsNCZk uRrqrEKoFxDlf2ls OSNaQUooGZ8eoSpbX4Zg eXD2RNTmz2h4Ux61Q12q M5CjfAH+CJXthKV6cGC8 pM2uOmBpWmS4AYqa C480NyVexEUpAmkey3vy e1uloIz7DiCzRWXduzJj nSijVBW6m0LzFh08Z09w IHdpZHRoPSIyMCUi XWAzqPaqvm3ozL2cLs5+ YHVagQL4rBH4iJ6qVeYb KuE4YGysU121MfTntSOn CbuaC78sZ6FxxJO+ HGGpJhy6UUIgaAupSO4m kRMpLUseAn3wPDQ2KvBe TdEvWZjmF7NqXVIfpjua vjyjiHC5IANqKJUi uL32Kj7gxZxjBv0tDJDd IVX3JFAwiMBvM0CrvX5l LqOvZUFfYZNjM6KmfKYf VYgnF549UAfpDaK0 MEIbynKvQ0MbLVDabBdv ZuX6r8K9Zi7KiYdffDGk DI6kFwFlYPq6L5XzOie5 BAVsvHvvRD7mkBOa XGalXb1ctMgzjJfeMO7l UFXfeifqo482QyPvb3pi FKRwrOXtYOhaNOR6O66m p2K8TKHbXKYuNSD0 uKE4lV0nsLyujswznRTh dDsgdmVydGljYWwtYWxp C604MGDbcFefDwHPDld6 X4JlOrz7ORRxaAhr EO7jvHEqYQwvSw5wvJsx pNvrQJ8yUZFyxjewg073 CjMnu2wuDAJtdIUcUTrr PVX5N62al0C2HIMd BVJbXLP0vNC0mE7hoRnw bjogbGVmdDsgdmVydGlj ZIxhNMrqB684YSRalEbu Ks5APjt6K6PlMek4 LQBksIamEN0jeQHyOTnt Mu1alCbovFnfQO1cVPWe kskxs333UcGii9dzMAGp eDJlKQxpQTJ2L09l o4T0VACyBTJlAGC8pVN3 eA9jfMjuvjecvPEpqBbh zcChyFwhLVsrXFkzG724 IHRvcDsnPlBheWVy OjwvdGQ+NP94bs96X8Jm IlrdAcb2ZQCnTUH0lIY1 eA8kMQWaOSyoq1Y2qLT5 Z8GfifXaik8qv0vb YXB (more content not included)... [facility] Physical Therapy Noteon 08-07 Physical Therapy Note [id number] #[id number] [facility] Quantitativeon 3 hCG Quantitative 3.0 mIU/mL High 0.0-0.6 [facility] Comment on above: Result Comment: Post -Menopausal Reference Range is: 0.1-11.6 mIU/mL Performed By: #### 7 [id number] ####[facility] (DEFAULT)[address] [place] [address] Coding Summaryon 08-16-2022 Coding Summary HTMLBase 64 WsfilqjqXWo9nNh+PGhl YWQ+EL1HZVEmS23elYPz pH1YE1rJRJ6DJRFUAZQC LV4VZH8amWA4GPtyS2If biAv NfhzuRAsMK42HTf3NTF5 zQqcDLvfoE5sbKPnA4m6 YjFzSM73aV94FDtlXTKz VoT9QeJljqwkmHJo Q9reKiHjrCFcOtl+PHRh YmxlIHdpZHRoPScxMDAl OlQxhRbsMQ3zXz3oMFPv LWNvbGxhcHNlOiBj r2taLDHfBLblKK8cgEzb E2SckMO0CJVtr3p3Ul62 dHI+QQNzWRS2bIdoXDkm m529TnSlf9nzLBU8 cMAiPOstZER5B42ur5D1 VYMdLTBcZWJ6dBV1vR9t fCacqpszZ4XuxIEkYsR3 WYP9gYIlfT9ksXhy ixjliK4mRmy+X89LKP0X LLNEFK5UXfh2L8ZiDfik dHI+AP30PTJmIV36qGZw yFTzh6cvzAo1BhCj UPAdEOT7cChuLKifi5Hp GSYwZ61ssIRxg7W7XAMe kRrwfWFdGlJgxZH1vY0g QNhyvebcm1aprmje Zuors6prtz56rL38N32f OZlmKINhMNM5EEVxZZVd cClogm4vxY6dBn5+IDxj t4cox9vruVl6ObFx DALrdqDdbZjlBUB5j4Rj Pv85X2XyoUmvb1BbRyc0 gh45zSOgi6Y6rZJ9JKxj NFQfdS5aYTwnOwK3 XOTtScVnyK80uQVgOWmr Km7uaMwhgZttYI1aOMTx lrmnLRNvdC6fFKDevBOu nSdiIZ9oTOYoluau r371RwSmZKG3DYOehCUf Z7RvxJ7qMzUtVUAiZYZp N6OfmKJySNoyF495FGmw WaJ6HNXkyuSqF8Ys SCOeaAprCfW0g5B1Lu1V s7QfvadzQMZ0TVcqXEZ4 HzXwIqYbXrF1D8AcKgv5 UTTciDlaQZ3lF8Dl INZemxnptahosDR7TLFq DGMttI53vQOyDKbfVj0r t4A4a257ZOPsKHUmtB97 Dx3yeLqjIXQweJCF aY1kmsmqq6xymsplHdTp JFBkZGy1VGn9ZWMxuMfu GhVoKPP8DdV0XSD4rHUv vW9fiIikvudpiR3b Oyc+N00xbJ5xHNZ1NEW8 hsqyVCSmxoXhIO43YW89 Y2KyIroxyCQdzDZ+PGRp quXvjVxaNY6kJvTd l7rty7WgREovZ4IdNUTx SKgoLjb3DGOfGOT6aVF5 dO9pUZFyXOtqw7D1uCR8 B7YidmItqj5zv5ns BHKmPFagT49usOAdh4P4 ISKscRF2NVXqzBzjWxQz mL63Vbk+VNBvlEszu3Rd Isxrh3kje0pruLs2 IjMwJSIgdmFsaWduPSJ0 n4BcZu22Y47zXHejRAMy BDBgFVXxZGGjtUkzyi2m nG9eYa6+PGNvbCB3 zQB4pQ0pXELyWnC4QJdg L484XnDqlFAjBvzwq2xb r8epmSb1OyYpIOSchxOc yXmmFNW8v9NcEq33 Q83eCAlfIMIeXXPaRWRj ANPbaVyklo2oqD8vLo4+ KF9mo9tzwg78nC32zEE+ QPFnHDC2jVcaRQcg IPNmmH7pRJepTjA3NJJw UaFhkD50aGNsFUmcFl3s vImtoUnoOR3iLVUvnkiq k970HlOiv8rvEXFh mVJzNYthSDB6J38cw6X2 AMLdIVBcZAM1cEI7mT0w bGlnbjogbGVmdDsgdmVy uFkvTVzmCDoxD353 IHRvcDsnPlBhdGllbnQg OgMeQOd1S7LoCvw6RIVw iSmoIN1lxXLcYVpuSi3g jUmyrFfzDD1zGTPs nzztq601LlYmr5tkOLRe nYIsVLziTEK5O27zm8L7 HJKdCPFtIGO6hVO9wS2g bGlnbjogbGVmdDsg jnQwwIbfDXfpGNuaH639 IHRvcDsnPkJpcnRoIERh rTT7JZ68PQ96qEQbq4L4 zCG6M2BjAGVyqswp armgkUM7RVWaTFHfjK33 Lr7mqCihBh9jYEYrOSR3 EQScyBYeS3MjuP1rRiEa PDDoTKQbK0IndOKf ENrjQ147FSirBcV4LZUb wqRxW5GoXWNimJhhKgT0 k2G1Nw1PG7E4QR35XZ22 iVJds6G5xNV1J4Ay JSIpjtpogxtjfFK5PQXe XQZqzI43Ww2xvUmjNn4h XJYaHRK9VISlvFYcD5Dr tN1dKhQaUNWbDLRr Y4VeiQKaCAncV496YDxs QtY9IVNlhdBjC9TaWMJx bBggTrF9g3A5Gb0XLOf3 RV46FM63eBOuq9S9 mVI7G0XgMQUsgpdoiayi hRC8PCCjGFBgrV71Pq5e yIpeQa1jTRPdMQK7CLHy sMEzE6YhhD3wHpAs PZZxCEGtD4YlgQAjQLpo Y167XHszMcQ2ICCersTl E0TzZUUriLpjUoL8j0R9 Vk0IZIOpSQ94PBB5 pPG4WT74GM87D2PcXngy dGFibGU+PHRhYmxlIHdp ZHRoPScxMDAlJyBzdHls PM6yHs8sPMMbMAOl dKbobHSlXyAyr3zxUHPc HYfzNG4vsSprE8KqzCM7 QDLmp2k4Wr15P43vW1Lb dXA+AROhsTO3gJR9 iU1sDvHkWfU1FVnnZ250 EhAxiEFeTeysn8euv6ya uKz8VyX2CNGdplNriYwb SBR6y8LkMe01O73s IHdpZHRoPSIxNSUiIHZh dVpitg7cgY4xWq6+PGNv kMZ5cJQ9pA3nQiYeHyV5 KVsiU818HhAllTFa Ugwgs4oix8sthWg9VaOe RDOcqiFgsQioKXH2m1Sd Vs01R7ApmAvzr7VjEav0 tu89wTAdt5H0hDN3 I1QzBCLsbksqaYJqvAmw BI8rCIDikphzCCLwuN7j NKLbL5z8KaPoNnX7HMja X9NubwT9OXEufPPp NTgsGUG6F82ph9A3SDYc BGGsIYH0qSN3fU9ihEcm bjogbGVmdDsgdmVydGlj FWllMNpfI815XDWg pPhyNECafN3nOLJtyQIv vRubIV7gUXGpqrgjIzqS TEJFUlQsIFNIRUxCWSBM ERBOIpL7P4EeJra3 XYCjjNnrDL4tvKHyDTxq Be0ndUwsdNnlUE6tNJBz bzofWJWpcH2bVUTzeDEo uRleJS8oGLXlwqlj h018IfAmBWM5PAVtbHGv B1UryJ7iQfGyZGPyZSCy L2OmlELlHAmoM003NSym RuJ5EYCghqWhW0Gc MZAcsHljMhL9n1H0Uy2q Ar9eEp9iVSPwJD50XL40 lUZya4D1jBC8T4QzBXPr wzkcwymckHG3XJSn FTKhoU99yNXqOZtpMz1c p9W6w308GZInSJVznU04 Jn6iuApoDJYygVSMoO0t kungj2bnvzirCsUy KOBrEVu3IDo6OTRidOme LrHiRVU4XmO2YTC8gZQa lF7lvPnisgnrzJ8gKdm+ EdLpPGXfatO3B7Nx Zsz6BNZouNeiFT1hpGGo EEbnDd3twYqalMroXE2m IBJekaqsNRZunQ4mVICh fQHhcLhgJR1oVQHq jeuxl316TvVmWAQ1ESBd sCFoU0SyyL5rEyRgRQGv AJLfT4VivZZfFGmeM159 GVibAgH6BRVohgWj C3DmDQQjaPreYuT8n2M6 Qv4YVB0MXQR0O4DuMbq4 IZPiuUolUT6vwOPtQIiw Gl4iqCxtpTpeDB2e BHAhyameRLDwkN0iQKWf oUMnvZvkNU9tRZUtmfyh t493KiLoIAU5QTLkqFHw M0IoyN6eXrVvBVHd SBJvR7CbmBHpVIccR591 WUqmRkJ2FIVsokVfF3Da YTRsmXzpTkF6l2S5Wg5U bWQhX5BzO8c9V0Zn PjwvdHI+OE26OYCvCT01 lFRwpNUnm6agpKh8DyCv SHGoHZB1mAnwJRase1Lc HLGpT37ibVNpx9G5 IGNvbGxhcHNlOyBlbXB0 rL4sFQgytsrzj1burmql Wsdln0mljg72lM28M74n IHdpZHRoPSIzMCUi TKJlmZefya8ltT5sQa6+ WNRdsXI9iDF7mX9pTdQc XeI1ZGedH520OrMahMHl Efmsk3qjk2uzdMi0 IjIwJSIgdmFsaWduPSJ0 o0QbFw41U54aFZjzLHUe EYIyHEGjFIYenRvyme8w eT7vHq3+BS2ap5da ks97zJ51xHI+PHRkIHN0 lDpbBPcgBRMmdO6tJUlv XeJ8YFXuKzSrmX74gKYy ECwhWn1hxTmriXkr YU7bDWEsmodbb047YvGi m9fiRJRmkIMcSVcaYWA7 G80zj2G4FXZkDSAsNLV6 kOU8mS6skFbmbbew bGVmdDsgdmVydGljYWwt TSaqI299QRLmzMnuWcKn zOHpJ7rhibMSFV7eFtam dGQ+GTOuUSQ3nNwm QMdhXAApzO4lEHOdF9w0 HaZnQhM0DXthE2EhbnZ2 ZGIxgENoGQYlaNNIcH5i yapuq4jmnxkgXjBa HPPdSUl5QGk7VSHuxEjc HxFlTJF7BrW2AKM1gLFs nT4rtKbprpecoD2lKiq+ RklOOjwvdGQ+PHRk UJY0nHgqCApiJORooT9g UMTkQ8x6RoDzCgN9XGfx Y3ZrknA8PGIkxGLrZHWl tMMKlC2xzeruf8gm vtqoRdYjDSZuYXu6QLq7 YGPhuGpcUlOyKXP8UjZ3 LTA5nNMqcS5rhJjytnlo oC3bBfq+TVJOOjwv dGQ+IXBpQTY9mXwoQDnq FPFylX1zYRZsE8t4ShLr VrY8FPfxR3UlepT1EFDy zNSwISFsnMTVgN8t tvugh5xoyiqoPeRkNLRw SXn2YBn2KZLlfAxxHlIn LYY4BpR5YMK4yZCpeZ5o mFmwbjjlfB2sPvy+ TAK3YFE1NZ40CC27O7Zu PjwvdGFibGU+PHRhYmxl IHdpZHRoPScxMDAlJyBz cMepQC2uXf3dGKRr LWN (more content not included)... Normal [facility] .Auto Diff 08-11-2022 Auto [place] % 7 % Normal 04-19 [facility] Comment on above: Performed By: #### 1 [id number], [id number], [id number], 4850103, [id number] ####[facility] (DEFAULT)[address] [place] [address] 31668 Baso Abs# 0.1 x10 Normal 0.0-0.2 [facility] Comment on above: Performed By: #### 1 [id number], [id number], 8072061, 5989264, [id number] ####[facility] (DEFAULT)[address] [place] [address] 72765 Basophils/100 WBC (Bld) 0.8 % Normal 0.2-2.0 [facility] Comment on above: Performed By: #### 1 [id number], [id number], 7258007, 3089693, [id number] ####[facility] (DEFAULT)[address] [place] [address] 76692 Eos Abs# 0.0 x10 Normal 0.0-0.4 [facility] Comment on above: Performed By: #### 1 [id number], [id number], 3610426, 0837577, [id number] ####[facility] (DEFAULT)[address] [place] [address] 49816 Eosinophils/100 WBC (Bld) 0.4 % Low 0.9-4.0 [facility] Comment on above: Performed By: #### 1 [id number], [id number], 7335053, 2417771, [id number] ####[facility] (DEFAULT)[address] [place] [address] 94072 Lymph Abs# 3.0 x10 High 1.3-2.9 [facility] Comment on above: Performed By: #### 1 [id number], [id number], 5330863, 7461491, [id number] ####[facility] (DEFAULT)[address] [place] [address] 21359 Lymphocytes/100 WBC (Bld) 25 % Normal 14-48 [facility] Comment on above: Performed By: #### 1 [id number], [id number], 0181117, 6956276, 70560841 ####[facility] (DEFAULT)[address] [place] [address] 93327 [place] Abs# 0.9 x10 High 0.0-0.8 [facility] Comment on above: Performed By: #### 1 [id number], [id number], 9035045, 9004451, [id number] ####[facility] (DEFAULT)[address] [place] [address] 35134 Neut Abs# 8.1 x10 Normal 1.5-9.2 [facility] Comment on above: Performed By: #### 1 [id number], [id number], 0514626, 8062812, 48598793 ####[facility] (DEFAULT)[address] [place] [address] 95108 Neutrophils/100 WBC (Bld) 66 % Normal 44-88 [facility] Comment on above: Performed By: #### 1 [id number], [id number], 7857729, 8265530, 30652612 ####[facility] (DEFAULT)[address] [place] [address] 35785 BMP Standardon 08-11-2022 eGFR Non AA >60 Invalid Interpretation Code [facility] Comment on above: Performed By: #### 1 [id number], [id number], 3594466, 6863878, [id number] ####[facility] (DEFAULT)[address] [place] [address] 44956 eGFR AA >60 Invalid Interpretation Code [facility] Comment on above: Performed By: #### 1 [id number], [id number], 8123931, 9947896, 46392894 ####[facility] (DEFAULT)[address] [place] [address] 55166 Anion gap [Moles/Vol] 18.5 mmol/L Normal 5.0-19.0 [facility] Comment on above: Performed By: #### 1 [id number], [id number], 2110027, 0109739, [id number] ####[facility] (DEFAULT)[address] [place] [address] 59799 Calcium [Mass/Vol] 8.7 mg/dL Low 8.9-10.[address] [facility] Comment on above: Performed By: #### 1 [id number], [id number], 1269216, 4323590, 06179236 ####[facility] (DEFAULT)[address] [place] [address] 08462 Chloride [Moles/Vol] 100 mmol/L Low 101-111 [facility] Comment on above: Performed By: #### 1 [id number], [id number], 1388319, 4445637, 74350458 ####[facility] (DEFAULT)[address] [place] [address] 79937 CO2 [Moles/Vol] 24 mmol/L Normal 21-32 [facility] Comment on above: Performed By: #### 1 [id number], [id number], 3471945, 1375547, 25347530 ####[facility] (DEFAULT)[address] [place] [address] 49174 Creatinine [Mass/Vol] 0.57 mg/dL Low 0.60-1.30 [facility] Comment on above: Performed By: #### 1 [id number], [id number], 5042295, 9369399, 17880289 ####[facility] (DEFAULT)[address] [place] [address] 56676 Glucose [Mass/Vol] 98.0 mg/dL Normal 74.0-118.[address] [facility] Comment on above: Performed By: #### 1 [id number], [id number], 9304802, 1957329, 36192794 ####[facility] (DEFAULT)[address] [place] [address] 83912 Osmolality 274 mOsm/L Invalid Interpretation Code [facility] Comment on above: Performed By: #### 1 [id number], [id number], 0319707, 9569085, 00916193 ####[facility] (DEFAULT)[address] [place] [address] 61658 Potassium [Moles/Vol] 4.5 mmol/L Normal 3.6-5.1 [facility] Comment on above: Performed By: #### 1 [id number], [id number], 1634502, 9181411, 94764258 ####[facility] (DEFAULT)[address] [place] [address] 83973 Sodium [Moles/Vol] 138.0 mmol/L Normal 136.0-144.0 [facility] Comment on above: Performed By: #### 1 [id number], [id number], 1319084, 8228880, 03932069 ####[facility] (DEFAULT)[address] [place] [address] 50716 Urea nitrogen [Mass/Vol] 9 mg/dL Normal 8-26 [facility] Comment on above: Performed By: #### 1 [id number], [id number], 3528786, 8848810, 60467989 ####[facility] (DEFAULT)[address] [place] [address] 38907 Urea nitrogen/Creatinine [Mass ratio] 15.7 mg/mg Normal 4.6-16.2 [facility] Comment on above: Performed By: #### 1 [id number], [id number], 1881140, 2076817, 98277379 ####[facility] (DEFAULT)[address] [place] [address] 27552 CBC w/ Auto Diffon 3 Erythrocyte distribution width (RBC) [Ratio] 14.1 % Normal 11.5-15.0 [facility] Comment on above: Performed By: #### 1 [id number], [id number], 3915226, 3767572, 06707698 ####[facility] (DEFAULT)[address] [place] [address] Hematocrit (Bld) [Volume fraction] 36.8 % Normal 33.7-40.4 [facility] Comment on above: Performed By: #### 1 [id number], [id number], 1255502, 4548968, 34638977 ####[facility] (DEFAULT)[address] [place] [address] Hemoglobin (Bld) [Mass/Vol] 12.1 g/dL Normal 11.3-15.9 [facility] Comment on above: Performed By: #### 1 [id number], [id number], 8545154, 9460074, 89751541 ####[facility] (DEFAULT)[address] [place] [address] Man Diff? Auto Invalid Interpretation Code [facility] Comment on above: Performed By: #### 1 [id number], [id number], 4299308, 8601058, 95890071 ####[facility] (DEFAULT)[address] [place] [address] 98980 MCH (RBC) [Entitic mass] 28 pg Normal 24-34 [facility] Comment on above: Performed By: #### 1 [id number], [id number], 4779419, 1260961, 53542412 ####[facility] (DEFAULT)[address] [place] [address] 65999 MCHC (RBC) [Mass/Vol] 33 g/dL Normal 26-37 [facility] Comment on above: Performed By: #### 1 [id number], [id number], 1982042, 2032291, 25136679 ####[facility] (DEFAULT)[address] [place] [address] 26132 MCV (RBC) [Entitic vol] 85 fL Normal 81-100 [facility] Comment on above: Performed By: #### 1 [id number], [id number], 2374259, 1827058, 01060404 ####[facility] (DEFAULT)[address] [place] [address] 92063 Platelet 367 x10 Normal 138-427 [facility] Comment on above: Performed By: #### 1 [id number], [id number], 6638826, 9868219, 69083518 ####[facility] (DEFAULT)[address] [place] [address] 28395 Platelet mean volume (Bld) [Entitic vol] 8.1 fL Normal 6.3-10.2 [facility] Comment on above: Performed By: #### 1 [id number], [id number], 7134149, 2746511, 05286904 ####[facility] (DEFAULT)[address] [place] [address] 04468 RBC 4.33 x10 Normal 3.70-5.30 [facility] Comment on above: Performed By: #### 1 [id number], [id number], 4500952, 3785078, 10089673 ####[facility] (DEFAULT)[address] [place] [address] 72941 WBC 12.2 x10 High 3.5-10.5 [facility] Comment on above: Performed By: #### 1 [id number], [id number], 3360726, 2317226, 15130308 ####[facility] (DEFAULT)[address] [place] [address] 16031 ED Clinical Summaryon 2022 ED Clinical Summary [facility] - Emergency Department [address] [place] [address] ED Clinical Summary PERSON INFORMATION Name: LIA DESAI Age: 21 Years Sex: FEMALE : 2000 MRN: Acct#: Visit Reason: Vaginal bleeding - < 20 wks ; 7 WEEKS, VAGINAL BLEEDING Arrival: 08/11/2022 12:41:34 Discharge: 08/11/2022 16:30:00 LOS: 000 03:49 Check In: 08/11/2022 12:41:34 Checkout:08/11/2022 16:30:00 Address: [address] [place] [address] PCP: Provider, None PROVIDER INFORMATION Provider Role Assigned Unassigned Adamaris Jaeger PA-C ED PA 08/11/2022 12:44:39 Arabella Romano HVAC/R INSTRUCTOR Nurse 08/11/2022 12:45:45 VITALS INFORMATION Vital Sign [...] Resolved Disease caused by 2019 novel coronavirus ([id number]): Onset on 11/23/2020 at 20 years. Resolved. Comments: 11/23/2020 CDT 16:07 CDT - SYSTEM Problem added by Rule (IC_COVID19_AUTO_PRO BLEM) following 2019 Novel Coronavirus (CoVID-19), MILY L from Nasopharyngeal Swab collected on 22-NOV-2020 16:44:00 EDT tested positive for COVID-19. no history ([id number]): Resolved. Contact dermatitis ([id number]): Resolved.. Surgical history: Tonsillectomy ([id number]).. Family history: No family history items have [...] quant draw (more content not included)... Normal [facility] ED Note - Provideron 023 ED [...] Resolved Disease caused by 2019 novel coronavirus ([id number]): Onset on 11/23/2020 at 20 years. Resolved. Comments: 11/23/2020 CDT 16:07 CDT - SYSTEM Problem added by Rule (IC_COVID19_AUTO_PRO BLEM) following 2019 Novel Coronavirus (CoVID-19), MILY L from Nasopharyngeal Swab collected on 22-NOV-2020 16:44:00 EDT tested positive for COVID-19. no history ([id number]): Resolved. Contact dermatitis (84884528): Resolved.. Surgical history: Tonsillectomy ([id number]).. Family history: No family history items have [...] % Auto Lymph % 25 % Auto [place] % 7 % Auto Eos % 0.4 % LOW Auto Baso (more content not included)... Normal [facility] ED Note-Nursingon 08-11-2022 ED Note-Nursing Patient walked into the ED with c/o abdominal cramping and bleeding. Patient is 7 weeks . Symptoms started today and cramping is getting worse. Denies taking any medicine for pain. Did have right lower back pain a few days ago. Was 15 weeks in may, had a miscarriage and had to do a D and C. Normal [facility] ED Patient Summaryon 023 ED Patient Summary [facility] - Emergency Department [address] [place], [place] [address] PATIENT DISCHARGE INSTRUCTIONS Patient Information Name: LIA DESAI Age: 21 Years Date of : 2000 Reason For Visit: Vaginal bleeding - < 20 wks ; 7 WEEKS, VAGINAL BLEEDING Arrival Time: 08/11/2022 12:41:34 Primary Care Physician: Provider, None Attending Physician: Andres Duval Comment: Visit Diagnosis: Diagnoses This Visit Miscarriage (O03.9) Vaginal bleeding - < 20 wks ([id number]) The Pharmacy at [facility] is open Saturday through Saturday from 9A [...] alcohol and/or drug addiction problems; contact the [facility] 29/10 Crisis Hotline -Text 7IDHC iq 543079. 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 It is important for you to follow up with a doctor, nurse practitioner, or physician?s promotions assistant for ongoing care. If your symptoms [...] so we can reach you if necessary. [facility] Emergency Department has provided you with a complete list of medications post discharge. Please inform your marketing communications coordinator/provider of your visit and for further instruction [...] may ma (more content not included)... Normal [facility] Extra Redon 08-11-2022 Tube Collected Yes Invalid Interpretation Code [facility] Comment on above: Performed By: #### 1 [id number] ####[facility] (DEFAULT)[address] [place] [address] UA [id number] 08-11-2022 UA Amorph. Rare [facility] Comment on above: Order Comment: Urina lysis Microscopic order added on by Discern Expert Rules system. Performed By: #### 1 [id number], [id number] ####[facility] (DEFAULT)[address] [place] [address] UA Bacteria Trace [facility] Comment on above: Order Comment: Urina lysis Microscopic order added on by Wannyi Expert Rules system. Performed By: #### 1 [id number] ####[facility] (DEFAULT)[address] [place] [address] UA Mucous Trace [facility] Comment on above: Order Comment: Urina lysis Microscopic order added on by Wannyi Expert Rules system. Performed By: #### 1 [id number] ####[facility] (DEFAULT)[address] [place] [address] UA RBC 0-2 [facility] Comment on above: Order Comment: Urina lysis Microscopic order added on by Wannyi Expert Rules system. Performed By: #### 1 [id number], [id number] ####[facility] (DEFAULT)[address] [place] [address] UA WBC 0-2 [facility] Comment on above: Order Comment: Urina lysis Microscopic order added on by Wannyi Expert Rules system. Performed By: #### 1 [id number], [id number] ####[facility] (DEFAULT)[address] [place] [id number] UA w Culture if Ind Standard on 08-11-2022 Breakpoint UA [facility] Comment on above: Performed By: #### 1 [id number], [id number] ####[facility] (DEFAULT)[address] [place] [id number] Color (U) Yellow [facility] Comment on above: Performed By: #### 1 [id number], [id number] ####[facility] (DEFAULT)[address] [place] [address] Culture? Not Indicated Invalid Interpretation Code [facility] Comment on above: Result Comment: Resu lt created by rule GL_MAGR_ADD_UA_CULT Result created by rule GL_MAGR_ADD_UA_CULT Result created by rule GL_MAGR_ADD_UA_CULT1 Performed By: #### 1 [id number] ####[facility] (DEFAULT)[address] [place] [address] Glucose (U) [Mass/Vol] Negative Normal [facility] Comment on above: Performed By: #### 1 [id number], [id number] ####[facility] (DEFAULT)[address] [place] [address] Ketones Ql (U) Negative Normal [facility] Comment on above: Performed By: #### 1 [id number], [id number] ####[facility] (DEFAULT)[address] [place] [address] Micro? Indicated Invalid Interpretation Code [facility] Comment on above: Result Comment: Resu lt created by rule GL_MAGR_ADD_UA_MICRO Performed By: #### 1 [id number], [id number] ####[facility] (DEFAULT)[address] [place] [address] UA Bilirubin Negative Normal [facility] Comment on above: Performed By: #### 1 [id number], [id number] ####[facility] (DEFAULT)[address] [place] [address] UA Blood MODERATE Abnormal NEGATIVE [facility] Comment on above: Performed By: #### 1 [id number], [id number] ####[facility] (DEFAULT)[address] [place] [address] UA Clarity CLEAR Normal CLEAR [facility] Comment on above: Performed By: #### 1 [id number], [id number] ####[facility] (DEFAULT)[address] [place] [address] UA Leuk Est Negative Normal NEGATIVE [facility] Comment on above: Performed By: #### 1 [id number], [id number] ####[facility] (DEFAULT)[address] [place] [id number] UA Nitrite Negative Normal NEGATIVE [facility] Comment on above: Performed By: #### 1 [id number] ####[facility] (DEFAULT)[address] [place] [address] 12142 UA pH 7.0 Normal 5-8 [facility] Comment on above: Performed By: #### 1 [id number] ####[facility] (DEFAULT)[address] [place] [address] 91654 UA Protein Negative Normal NEGATIVE [facility] Comment on above: Performed By: #### 1 [id number] ####[facility] (DEFAULT)[address] [place] [address] 15720 UA Spec Grav <=1.005 Normal 1.001-1.035 [facility] Comment on above: Performed By: #### 1 [id number] ####[facility] (DEFAULT)[address] [place] [address] 08102 UA Urobilinogen 0.2 mg/dL Normal 0.2-1.0 [facility] Comment on above: Performed By: #### 1 [id number] ####[facility] (DEFAULT)[address] [place] [address] 23579 Urine Source Clean Catch Normal [facility] Comment on above: Performed By: #### 1 [id number] ####[facility] (DEFAULT)[address] [place] [address] 66710 US 1st Trimesteron 08-11-2022 US 1st Trimester EXAM: US 1st Trimester HISTORY: vaginal bleeding, 7 weeks COMPARISON: 08/08/2022. TECHNIQUE: Ultrasound obstetrical first trimester. FINDINGS: Single intrauterine gestation which has migrated into the lower uterine segment. No cardiac activity is identified. Yolk sac is present. Captiva-rump length measurement of 1.1 cm yielding estimated [...] Signature): Jori Churchill 08/11/22 4:11 pm Technologist: [facility] US Transvaginalon 08-11-2022 US Transvaginal EXAM: US 1st Trimester HISTORY: vaginal bleeding, 7 weeks COMPARISON: 08/08/2022. TECHNIQUE: Ultrasound obstetrical first trimester. FINDINGS: Single intrauterine gestation which has migrated into the lower uterine segment. No cardiac activity is identified. Yolk sac is present. Captiva-rump length measurement of 1.1 cm yielding estimated [...] Churchill 08/11/22 4:11 pm Technologist: GANESH Myers [facility] hCG Quantitativeon hCG Quantitative 4616.0 mIU/mL High 0.0-0.6 [facility] Comment on above: Result Comment: Post -Menopausal Reference Range is: 0.1-11.6 mIU/mL Performed By: #### 1 [id number] ####[facility] (DEFAULT)[address] [place] [address] US PREG TVon 08-08-2022 US PREG TV [...] by: CHRISTIAN KATE Date: 2022-08-08 16:56 Normal [facility] Coding Summaryon 06-19-2022 Coding Summary HTMLBase 64 BgjogucuYTc0pWr+PGhl YWQ+RV7ZVHXdL85bzYYv wE2WH6cENF8ZXPENRQLY RU6AEP7fqHI2DKmnV4Gu biAv EkzyhCFiNS99HBz1TEW1 nObhLOcucD4dbOHyQ5p2 PsZmKW39lV23YLwkPJMr OzJ2HaDoolqhxIEo H0jjTiFgtFImPcf+PHRh YmxlIHdpZHRoPScxMDAl RiPfvHwxTC0tLp0kXOXm LWNvbGxhcHNlOiBj k7qxUIEvELyvTG9zqAkn V2PxlPA6MLYag7g5Zd62 dHI+UERmSKO5uFczPQhw r419BjJop3vvHHZ0 vLFtUBzrHOM1V94hr1B9 HJBgTQBjGUZ5dWS8iA2f bNmbtipbO6CpnYPlGdL4 KPM0cUPjcR8whRpl uglseE6oTqw+G01CSG3G HPFODW2GSfn8M7AsQktm dHI+ZM78PQIiVS33aANh kOJhg0zksAu0VtYv PGIwCOY9qGhxCOkdd4Dq NVZyC20afKVog3R5SBKi rFankHJqSmHrqWV9bD8f PKhlxkjjt5abariw Pieya5eewl07xQ84D85k JOtjWJRhLHS1EFOzBPQs iTotqe1gvV2fDn1+IDxj c6vkq0vcdRw8EdFp KARcveEkpWnfMSQ1s4Fh Ra03K2SggQjhz6RpYmf6 vx06qREuk7W0zNF0JSku VURyoD7xELdfQhV9 NBUuWaLviG26tDCaSHqn Sg5meBhhaXijAD7yAGRy xaqnWYLwuJ5yKHAsuPFq aSmmXF4aXTCpamvf n951VgCzWVD2JXHybVMn M0BsyU0hIfMyRMKpTKCr A2DoaKCtYBcxL773MTbp LlV9AUGmoqVzR5Vk LNCyvQckYzP7r1L8Uo9Z l2PywpkaKFS7SRqqNASr NyS3ZaKnOrX4I6SsCdj9 KRIeaOwhTS7zI5Xy WZCmnlezdafvxWI5IXEd EYHwjT93kYNlUGqhNd6r l7U3r370VFYxWKTehL44 Oi1ocXmsANXuxKIC yU8xgjfwf3llgcmvOmQb KRKeHNj0JNf8RVMmwPgl AqHeESP9XdN4QKT4tHIx yN4wpCntznsgwD6s Oyc+W70inD5sDZS2NCI0 vpkvLLXhzyDfVA10UA12 G0CaHcuigLAlqQM+PGRp loZgkBpkQN9xWyUw i6ssc4VuMBamJ9SlYPPh GWpjRqz7IHBwDUP2vCX6 cN8zULOrSJveh3D4qXP9 U8DuvyBubh0mu8vg DTBcRYjkM88tnHMbo9O6 BDAjiSL0OCKdlFxlQxAs nX55Nry+KKQnyEldq3Lz Kzank7fhk2fvtZc5 IjMwJSIgdmFsaWduPSJ0 r7QiQj03U58bIEvdAZTd SUJsANFoZGWjoYtazh7q vB6iLo4+PGNvbCB3 yAZ2rJ3pXBNnXcD3YOcs Q690XhTxeJReDninw6aq p4hwaVt6FcTvTMCaaxMh nZgpKVJ0q0WcSp61 O02vEVgsGGEfNVKlXXIm BYKaaNzxwy4vnC0wPl4+ FO4ly1zcdr60jJ53gRA+ OKNeKPM4kVilDQwt ZQXknS5dRFwnEfZ2TBDa XlOpoP03hUCnOVjlWs9v dNimbSkfOF3mBQLamyqs i947XmWpe2arLGOw uFErFEboTKT8G89rq8Q8 AZIkUUCqDGT8aUW5qC0u bGlnbjogbGVmdDsgdmVy sRyfWYwbQPtbX730 IHRvcDsnPlBhdGllbnQg TjZxVNi5U5ReQqy8KPIu gIvsIB2pvWIgEKqdLc7s kBqdtUecCN0oMYLq rqodh385RyAsm8lkYKJd kOFnUPchZYT9T76ft4T5 AOYxTTLyFDY6fTS2cY7c bGlnbjogbGVmdDsg txTdrHouITwjGBfyN330 IHRvcDsnPkJpcnRoIERh nPV8KP36WU65cGHyg0U7 kDP0O3KeDPIyttvq yasxtYL0LJSfWLZqcD49 Bt3dsUkeMe7dCVXzVWX9 PHGbnGMfE8LcdT1mInPm IVTbBJRlX2AxjFHt NFyeF116QZxeYvY2UKPu lyFdB5HuMFUbhUbqBtG8 e4D4Ew1WP5B3VG02ZK45 eOGcs1E5lTA6X4Rc BSBwevqupzqhcHW4QOJu IVVrrK96Fh2biNbpWa7u QCLaCLB0GZPkgONwP2Mn qV7fNpEtGTNyWCHo A6VqtWLzWJcwN773QZmw BmC2QRTnuwKiG2LqLRZd mIooXwC9z8G0Aj8VFKb0 IU75YN76cVUwb4H6 dEG5T1LtBQJhxghhaggl pZS2XNToULZzzQ11La0q oMorZl8iUFUnOMF0JCLz bSXhG5WsbU1uLhNf HSGbWGXqQ2IyaPUaXHpd M304FUsyTqS6RXSixbCb Y2NyBKBuhJukTgF3k6T9 Ln8SIBGaWI11JGW8 dLW8WT16GT36F9TuKmne dGFibGU+PHRhYmxlIHdp ZHRoPScxMDAlJyBzdHls VC0rEw9dZVScTZWu aSwmgUSlReYkg4qyGOGz VTjtQL6pvVreQ2RqmYV2 IIEva7q5Np72P98mD4Mh dXA+JXPddDW3wUB6 pN7jFkFhFoA6BTudG982 IuXscDKyTbxga4xcf8nt wUt3WaR2TROermPoiJvq DAI4q6BpHd13Q22r IHdpZHRoPSIxNSUiIHZh eMcpsm0buS8pIv3+PGNv hZT0wTI2kA9aRnSpOjH6 PYnuQ131PhXruSPb Gjohk8lau5pffWe5KdHy WPDsyjJqdTbtQQG9s7Dq Vk61Z3UmoEjfc8CaRot1 du96dRLdp0K4bJJ2 Z3VmTYOomwjlcJUaiZbl RS0sWOSpofxdGTFbmL5o JRBdW3r6HoGiYbM7OTha J0BxbdZ1HJBizDIz AYshIEN1D18mm4L8VJPm VJDxZZW5fHS2uO2obToq bjogbGVmdDsgdmVydGlj JBntGWcgL092LLVd yVvtBNQkaT4dJHMvcGMu rFutXF3mGJLybijtHdnM TEJFUlQsIFNIRUxCWSBM HFZFHjF7E2JtVut8 HWUfbQaxSM0ufIUdJGpd Fx1tgNuvjObiQG3nUORs unxaLPSmuR0bHEOikWEx vVhfDC1xPERrqbaa g077XnHvAXM9RXDgbCBq N1WunR9zBtUpGMYpSVWe D1FixLBySSdxA192YVql XlG0UNQqvvGkZ8Sc CHFdeAcsPfF7r3H9Wb9m Ga1oSw3zWEMaAF88IV03 kBXem4O0bIE8O0MuUWRa jfahtrxfoIJ4PZFr GWPjjU80kVPyXLsqWr6f p4I7h692ENWmQIOavK50 Hf0heFgkKHSzmDHUeS8y cyekb9nkyefkZiXv AKPgZNo9ANa7HQVqrVwt YkTbJHD7RsM5MSQ1nKBp lS1xoEpjbtiqtY6eFnh+ LnWkQQHjzcR3I9Vu Ftp5QKYkkPqzYA2mvPHx PSomCx8wrNpqpFrmKD9v TXFyibxsLGHpeS3aYKNj tEQhrQcoQT6bUISd yayws381MtLsQRV5GEVa iWBtJ7WyoA2sDmAfNYVn JXWiM6PxmMUqOAjvI983 LBmrBiN9MRHjtvCc G8HkVBDorGmpJsI2d1V1 Rv1KSJ7ZJQY9A1FkZri1 FTJoiSrvJN2mnQZnSBxb Wb3ssTnfiHuuDL2y LXHfzijrQZOxiO4jIPPy uUPtwRsjIN5mWINeddke k303EoJgAJF5EXAdyJCv Y4UquH1yZnUiJIHc WUDsB6TmiKMsDQohO793 KIupWdB8GBLvsuGhC3Is LCPwiPsfTtI2q8I4Cq5P UDwvdGQ+AV32ys73 Z9LoLqduFds9ONUxPEZ5 dIY5pP2aQUNcDLezz6P8 uRT0U8VlaiTkln0tr3vy WFKxPZgcC09zdFVq j3N8SZXigCQ4KIVhoGbz WyPoaW30Uwd+PGNvbGdy l0GuNaxgw5uvq6rwoBl5 IjMwJSIgdmFsaWdu NPX5r0LkKb45A52sLOhe ZHRoPSIzMCUiIHZhbGln ig0zaS4dKq6+PGNvbCB3 eEM8vQ3kYhFyFaN8 SBbhA216MhUdsWHvFfcf x8gvq1tzbXi5VuTkRTWk pjMefKrjVAV6h0SeOt44 R5VwfClew2LdDin5 ab84uWYkn9K9jVD4M0Np QIDreypewKXaaNxeUA6j QBLphjbmNVVtfE1vLZFg T6u9NlYzWlH4MTjz Y1WxdrB2FRAowJEmGDYk pSVOnG9bwrcsf9wxcenb IlBfXJGpYKl1YIi9WKTq zOyvWzGxDDG9TgQ8 NDR9jWMuzT6lrGfxzhhe nE4aSif+MJa4s5gkeIDk RA7xwTK9IV27ID31sHJs u8R8aUH8V9VvTXFa dkydyowruEJ7PQBlHPCv hM32Ii2vaIexPk0kPWSq CQR4OQGwiYQdH4UatN7r MtWnOVErMHRrF3Fe pMGtHDkiC037UOgzFbP8 OJAclwBrA2ZaPGAmrRyb QnM4a6D1Ok8UVW27RZ45 XT36fLKau9T1qCN1 Y7VhLTAlxjttkvtxpZM1 TXIeXJBsdO92Vp0wvMxh Ev5gLDPnPZV5XHDlvJZx B0BixE7kNcRmBTRc WDQjZ1ZjmIOqWYbgW366 YUhbPaR7SELzspFmE6Jb UJHyvYdyRuU5q9W1Lc0G Vv02FB50VC34rONa s5O4xEI0M7QbWZAozwch owxesTX8UGCcUABuaT23 Il1ueDgcGr1xWSEqOTU9 WTEeuZYnU7LcgD3z YgGkXJFeCYUmY9FevGXd HXukB712POjoSfF1NHTv mkSdM3GtHBWloOrlUxT9 c8D8Ym3KNIadfql6 H0XbDjctzPU+XQ27RIUr BP63dXBrxBWgr5psaTk0 RdIiNWFvXYD0mPgiMXlf k5FoZZScZ76yyBUs c2U (more content not included)... Normal [facility] C Throaton 06-14-2022 C Throat Ordered by Discern. Normal throat jonny isolated No pathogens isolated Normal [facility] Comment on above: Performed By: #### 1 [id number], [id number], [id number] #### [facility] (DEFAULT) [address] [place] [address] ED Clinical Summaryon 2022 ED Clinical Summary [facility] ? Urgent Care [address] [place] [address] [id number] Clinical Summary PERSON INFORMATION Name: LIA DESAI Age: 21 Years Sex: FEMALE : 2000 MRN: Acct#: Visit Reason: UC - Sore Throat; UC - Body Aches; SORE THROAT, COUGH, BODY ACHES Arrival: 06/12/2022 16:17:17 Discharge: 06/12/2022 17:23:00 LOS: 000 01:06 Check In: 06/12/2022 16:17:17 Checkout: 06/12/2022 17:23:00 Address: [facility] [address] [address] PCP: Provider, None PROVIDER INFORMATION Provider Role Assigned Unassigned Birdie James HVAC/R INSTRUCTOR Nurse 06/12/2022 16:19:28 Nelson Sharma PA-C ED PA 06/12/2022 16:22:15 VITALS INFORMATION Vital Sign Triage Latest Temperature Tympanic Temperature Temporal Artery Pulse Rate O2 Sat 98 % 98 % Respiratory Rate Blood Pressure /76 mmHg /76 mmHg MEDICAL INFORMATION Medications Given: Allergy Information: Adhesive Bandage; Zithromax PHYSICIAN DOCUMENTATION DISCHARGE INFORMATION: Discharge Disposition: Home Discharge Location: Home PATIENT EDUCATION INFORMATION Instructions: Cough, Adult, Qahg-dq-Lykd; Pharyngitis, Gnxj-qb-Gecr Follow-Up: With: Address: When: None Provider [address] [place] [address] Within 1 week Comments: Please follow-up with your primary care provider, call the office schedule an appointment to be seen in a week or sooner for continued care, you will be notified with your results, please take as Tessalon Perles as prescribed, take ntsz-xdt-yjtyysl ibuprofen and Tylenol as needed for fevers, body aches, or headaches. Drink plenty of water to stay hydrated, and return back to the urgent care center for any worsening symptoms, concerns, or complications. DIAGNOSIS: 1:Pharyngitis; 2:Cough Patient Understands: Yes - Patient/family/careg iver verbalizes understanding of instructions given Comment: Normal [facility] ED Patient Summaryon 023 ED Patient Summary [facility] ? Urgent Care [address] [place] [address] PATIENT DISCHARGE INSTRUCTIONS Patient Information Name: LIA DESAI Age: 21 Years Date of : 2000 [facility]: [id number] Reason For Visit: UC - Sore Throat; UC - Body Aches; SORE THROAT, COUGH, BODY ACHES Arrival Time: 06/12/2022 16:17:17 Primary Care Physician: Andreia, Tyson Attending Physician: Nelson Sharma PA-C Comment: Patient Education With: Address: When: None Provider [address] [place] [address] Within 1 week Comments: Please follow-up with your primary care provider, call the office schedule an appointment to be seen in a week or sooner for continued care, you will be notified with your results, please take as Tessalon Perles as prescribed, take jged-wmq-flhimae ibuprofen and Tylenol as needed for fevers, [...] these instructions at home: Medicines ? Take qvqt-dem-rtxcqjr and prescription medicines only as told by [...] things can cause a cough. ? Take dzds-rgc-fwoonba and prescription medicines only as told by [...] provider. Document Revised: 05/13/2020 Document Reviewed: 04/13/2019 [email or web address] Patient Education ? 2021 [email or web address] Pharyngitis Pharyngitis is a sore throat [...] symptoms? Symptoms may (more content not included)... [facility] Strep Aon 06-12-2022 Strep procedure control Pass [facility] Comment on above: Performed By: #### 1 [id number], [id number], [id number] #### [facility] (DEFAULT) [address] [place] [address] Streptococcus A Negative Normal Negative [facility] Comment on above: Performed By: #### 1 [id number], [id number] #### [facility] (DEFAULT) [address] [place] [address] Urgent Care Recordon 023 Urgent Care Record [facility] ? Urgent Care [address] [place] [address] PATIENT DISCHARGE INSTRUCTIONS Patient Information Name: LIA DESAI Age: 21 Years Date of : 2000 Reason For Visit: UC - Sore Throat; UC - Body Aches; SORE THROAT, COUGH, BODY ACHES Arrival Time: 06/12/2022 16:17:17 Primary Care Physician: Provider, None Attending Physician: Nelson Sharma PA-C Comment: Visit Diagnosis: Diagnoses This Visit Cough (R05.9) Pharyngitis (J02.9) UC - Body Aches ([id number]) UC - Sore Throat ([id number]) If you received any narcotics, sedation, or [...] documents With: Address: When: None Provider [address] [place] [address] Within 1 week Comments: Please follow-up with your primary care provider, call the office schedule an appointment to be seen in a week or sooner for continued care, you will be notified with your results, please take as Tessalon Perles as prescribed, take hnpj-onz-dpdwfrh ibuprofen and Tylenol as needed for fevers, body aches, or headaches. Drink plenty of water to stay hydrated, and return back to the urgent care center for any worsening symptoms, concerns, or complications. Medication Information: The exam and treatment you received today in the [facility] were for an urgent problem and are not intended as complete care. It is important for you to follow up with a doctor, nurse practitioner, or physician?s promotions assistant for ongoing care. If your symptoms [...] so we can reach you if necessary. [facility] has provided you with a complete list of medications post discharge. Please inform your marketing communications coordinator/provider of your visit and for further instruction on these medications. Any specific questions regarding your chronic medications and dosages should be discussed with your primary care physician(s) and/or pharmacist. New Medications [facility] [address] [place], [place] [id number], [phone] benzonatate (Tessalon Perles 100 mg oral capsule) [...] these instructions at home: Medicines ? Take tlux-geb-ebufasu and prescription medicines only as told by your doctor. (more content not included)... Normal [facility] US PELVIS AND TRANSVAGon US PELVIS [...] Date: 2022-06-04 06:57 Normal [facility] US PREG TVon 05-16-2022 US PREG [...] Date: 2022-05-16 18:15 Normal [facility] HEP B SURFACE ANTIGEN SCREEN on 04-20-2022 HBsAg Screen Negative Normal Negative [facility] Comment on above: Performed By: #### H BSANS #### [facility] [address] [place] [address] Dr. Jeronimo Melgar HEPATITIS C VIRUS AB W/ REFL EX QUANTon 04-20-2022 HCV AB <0.1 Normal 0.0-0.9 [facility] Comment on above: Performed By: #### H CVPCRR #### [facility] [address] [place] [address] Dr. Jeronimo Melgar Interpretation: Comment Normal [facility] Comment on above: Result Comment: Nega tive Not infected with HCV, unless recent infection is suspected or other evidence exists to indicate HCV infection. Performed By: #### H CVPCRR #### [facility] [address] [place] [address] Dr. Jeronimo Melgar HIV 1 AND 2 WITH REFLEXon HIV Screen 4th Generation wRfx Non-Reactive Normal Non Reactive [facility] Comment on above: Result Comment: HIV Negative HIV-1/HIV-2 antibodies and HIV-1 p24 antigen were NOT detected. There is no laboratory evidence of HIV infection. Performed By: #### H IV12 #### [facility] [address] [place] [address] Dr. Jeronimo Melgar RPR QUANTon 04-20-2022 Rapid Plasma Reagin, Quant Non-Reactive Normal NonRea<1:1 [facility] Comment on above: Result Comment: Plea se Note: This test does not meet current guidelines for screening and diagnosis of syphilis. This test is intended for following treatment response in patients being treated for syphilis infection. To screen for syphilis infection, a reflex cascade that includes both RPR and a treponema-specific assay should be utilized, such as Treponema pallidum (Syphilis) Screening [place] (831467) or Rapid Plasma Reagin (RPR) Test With Reflex to Quantitative RPR and Confirmatory Treponema pallidum Antibodies (940853). Performed By: #### R PRQ #### [facility] [address] [place] [address] Dr. Jeronimo Melgar RUBELLA AB IGGon 04-20-2022 Rubella Antibodies, IgG 1.85 index Normal Immune >0.99 [facility] Comment on above: Result Comment: Non- immune <0.90 Equivocal 0.90 - 0.99 Immune >0.99 Performed By: #### B OX #### [facility] [address] [place] [address] Dr. Jeronimo Melgar BOX TEST SENT OUTon 04-19-19 SENT TO REF LAB 04/19/2022 Normal [facility] Comment on above: Performed By: #### B OX #### [facility] [address] [place] [address] Dr. Jeronimo Melgar CBC AUTO DIFFon 04-19-2022 BASO # 0.1 103/ul Normal 0.0-0.1 [facility] Comment on above: Performed By: #### B OX #### [facility] [address] [address] [address] Jeronimo Melgar Basophils/100 WBC (Bld) 0.5 % Normal 0.2-2.0 [facility] Comment on above: Performed By: #### B OX #### [facility] [address] [address] [address] Jeronimo Melgar EO # 0.1 103/ul Normal 0.0-0.7 [facility] Comment on above: Performed By: #### B OX #### [facility] [address] [address] [address] Jeronimo Melgar Eosinophils/100 WBC (Bld) 0.7 % Critically low 0.9-7.0 [facility] Comment on above: Performed By: #### B OX #### [facility] [address] [place] [address] Dr. Jeronimo Melgar Erythrocyte distribution width (RBC) [Ratio] 12.8 % Normal 11.0-15.0 [facility] Comment on above: Performed By: #### B OX #### [facility] [address] [place] [address] Dr. Jeronimo Melgra Hematocrit (Bld) [Volume fraction] 43.7 % Normal 36.0-48.0 [facility] Comment on above: Performed By: #### B OX #### [facility] [address] [place] [address] Dr. Jeronimo Melgar Hemoglobin (Bld) [Mass/Vol] 13.1 g/dL Normal 12.0-16.0 [facility] Comment on above: Performed By: #### B OX #### [facility] [address] [place] [address] Dr. Jeronimo Melgar IG # 0.02 10e3/ul Normal 0.00-0.03 [facility] Comment on above: Performed By: #### B OX #### [facility] [address] [place] [address] Dr. Jeronimo Melgar IG % 0.2 % Normal 0.0-0.5 [facility] Comment on above: Performed By: #### B OX #### [facility] [address] [place] [address] Dr. Jeronimo Melgar LYMPH # 2.6 103/ul Normal 1.2-3.8 [facility] Comment on above: Performed By: #### B OX #### [facility] [address] [place] [address] Dr. Jeronimo Melgar Lymphocytes/100 WBC (Bld) 27.3 % Normal 20.5-60.0 [facility] Comment on above: Performed By: #### B OX #### [facility] [address] [place] [address] Dr. Jeronimo Melgar MANUAL DIFF REQ NO Normal [facility] Comment on above: Performed By: #### B OX #### [facility] [address] [place] [address] Dr. Jeronimo Melgar MCH (RBC) [Entitic mass] 27.7 pg Normal 26.7-34.0 [facility] Comment on above: Performed By: #### B OX #### [facility] [address] [place] [address] Dr. Jeronimo Melgar MCHC (RBC) [Mass/Vol] 30.0 g/dL Normal 29.9-35.2 [facility] Comment on above: Performed By: #### B OX #### [facility] [address] [place] [address] Dr. Jeronimo Melgar MCV (RBC) [Entitic vol] 92.4 fL Normal 81.0-99.0 [facility] Comment on above: Performed By: #### B OX #### [facility] [address] [place] [address] Dr. Jeronimo Melgar MONO # 0.8 103/ul Normal 0.3-0.8 [facility] Comment on above: Performed By: #### B OX #### [facility] [address] [place] [address] Dr. Jeronimo Melgar Monocytes/100 WBC (Bld) 7.8 % Normal 1.7-12.0 [facility] Comment on above: Performed By: #### B OX #### [facility] [address] [address] [address] Jeronimo Melgar NEUT # 6.1 103/ul Normal 1.4-6.5 [facility] Comment on above: Performed By: #### B OX #### [facility] [address] [address] [address] Jeronimo Melgar Neutrophils/100 WBC (Bld) 63.5 % Normal 43.0-75.0 [facility] Comment on above: Performed By: #### B OX #### [facility] [address] [place] [address] Dr. Jeronimo Melgar Platelet mean volume (Bld) [Entitic vol] 10.7 fL Normal 9.5-13.5 [facility] Comment on above: Performed By: #### B OX #### [facility] [address] [place] [address] Dr. Jeronimo Melgar PLT 399 103/ul Normal 150-450 [facility] Comment on above: Performed By: #### B OX #### [facility] [address] [place] [address] Dr. Jeronimo Melgar RBC 4.73 106/ul Normal 4.20-5.40 [facility] Comment on above: Performed By: #### B OX #### [facility] [address] [place] [address] Dr. Jeronimo Melgar WBC 9.6 103/ul Normal 4.0-11.0 [facility] Comment on above: Performed By: #### B OX #### [facility] [address] [place] [address] Dr. Jeronimo Melgar CULTURE URINEon 04-19-2022 CULTURE URINE Culture Observations: LIGHT GROWTH OF MIXED GENITAL JONNY. NO POTENTIAL PATHOGENS SEEN. Normal [facility] Comment on above: Performed By: #### B OX #### [facility] [address] [place] [address] Dr. Jeronimo Melgar DRUG SCREEN RAPID (URINE)on 04-19-2022 AMP Negative Normal NEGATIVE [facility] Comment on above: Performed By: #### H IV12 #### [facility] [address] [place] [address] Dr. Jeronimo Melgar BAR Negative Normal NEGATIVE [facility] Comment on above: Performed By: #### H IV12 #### [facility] [address] [place] [address] Dr. Jeronimo Melgar BUP Negative Normal NEGATIVE [facility] Comment on above: Performed By: #### H IV12 #### [facility] [address] [place] [address] Dr. Jeronimo Melgar BZO Negative Normal NEGATIVE [facility] Comment on above: Performed By: #### H IV12 #### [facility] [address] [place] [address] Dr. Jeronimo Melgar KRISTINA Negative Normal NEGATIVE [facility] Comment on above: Performed By: #### H IV12 #### [facility] [address] [place] [address] Dr. Jeronimo Melgar CUT-OFFS SEE BELOW Normal [facility] Comment on above: Result Comment: AMP [...] By: #### H IV12 #### [facility] [address] [place] [address] Dr. Jeronimo Melgar DRUG CUT HEADER DRUG CLASS TEST SYSTEM CUT-OFF CONCENTRATIONS ARE FOLLOWS: Normal [facility] Comment on above: Performed By: #### H IV12 #### [facility] [address] [place] [address] Dr. Jeronimo Melgar mAMP Negative Normal NEGATIVE [facility] Comment on above: Performed By: #### H IV12 #### [facility] [address] [address] [address] Jeronimo Melgar MTD Negative Normal NEGATIVE [facility] Comment on above: Performed By: #### H IV12 #### [facility] [address] [address] [address] Jeronimo Melgar OPI Negative Normal NEGATIVE [facility] Comment on above: Performed By: #### H IV12 #### [facility] [address] [address] [address] Jeronimo Melgar OXY Negative Normal NEGATIVE [facility] Comment on above: Performed By: #### H IV12 #### [facility] [address] [address] [address] Jeronimo Melgar PCP Negative Normal NEGATIVE [facility] Comment on above: Performed By: #### H IV12 #### [facility] [address] [place] [address] Dr. Jeronimo Melgar PPX Negative Normal NEGATIVE [facility] Comment on above: Performed By: #### H IV12 #### [facility] [address] [place] [address] Dr. Jeronimo Melgar TCA Negative Normal NEGATIVE [facility] Comment on above: Performed By: #### H IV12 #### [facility] [address] [place] [address] Dr. Jeronimo Melgar THC Negative Normal NEGATIVE [facility] Comment on above: Performed By: #### H IV12 #### [facility] [address] [place] [address] Dr. Jeronimo Melgar GLYCOHEMOGLOBIN A1Con 2022 ADA RECOMMENDATION SEE BELOW [facility] Comment on above: Result Comment: ADA RECOMMENDED LIMIT 4.0 - 6.0 ADA THERAPEUTIC TARGET < 7.0 ACTION SUGGESTED > 7.0 Performed By: #### A 1C #### [facility] [address] [place] [address] Dr. Jeronimo Melgar Glucose [Mass/Vol] 100 mg/dL Normal [facility] Comment on above: Performed By: #### A 1C #### [facility] [address] [place] [address] Dr. Jeronimo Melgar HbA1c (Bld) [Mass fraction] 5.1 % Normal 4.5-6.2 [facility] Comment on above: Performed By: #### A 1C #### [facility] [address] [place] [address] Dr. Jeronimo Melgar TYPE AND SCREENon 04-19-2022 TYPE AND SCREEN Negative Normal [facility] Comment on above: Performed By: #### B OX #### [facility] [address] [place] [address] Dr. Jeronimo Melgar CBC AUTO DIFFon 04-02-2022 BASO # 0.0 103/ul Normal 0.0-0.1 [facility] Comment on above: Performed By: #### C BC #### [facility] [address] [place] [address] Dr. Jeronimo Melgar Basophils/100 WBC (Bld) 0.3 % Normal 0.2-2.0 [facility] Comment on above: Performed By: #### C BC #### [facility] [address] [place] [address] Dr. Jeronimo Melgar EO # 0.0 103/ul Normal 0.0-0.7 [facility] Comment on above: Performed By: #### C BC #### [facility] [address] [place] [address] Dr. Jeronimo Melgar Eosinophils/100 WBC (Bld) 0.2 % Critically low 0.9-7.0 [facility] Comment on above: Performed By: #### C BC #### [facility] [address] [place] [address] Dr. Jeronimo Melgar Erythrocyte distribution width (RBC) [Ratio] 12.9 % Normal 11.0-15.0 [facility] Comment on above: Performed By: #### C BC #### [facility] [address] [place] [address] Dr. Jeronimo Melgar Hematocrit (Bld) [Volume fraction] 37.5 % Normal 36.0-48.0 [facility] Comment on above: Performed By: #### C BC #### [facility] [address] [place] [address] Dr. Jeronimo Melgar Hemoglobin (Bld) [Mass/Vol] 12.4 g/dL Normal 12.0-16.0 [facility] Comment on above: Performed By: #### C BC #### [facility] [address] [place] [address] Dr. Jeronimo Melgar IG # 0.05 10e3/ul Critically high 0.00-0.03 [facility] Comment on above: Performed By: #### C BC #### [facility] [address] [place] [address] Dr. Jeronimo Melgar IG % 0.3 % Normal 0.0-0.5 [facility] Comment on above: Performed By: #### C BC #### [facility] [address] [place] [address] Dr. Jeronimo Melgar LYMPH # 2.0 103/ul Normal 1.2-3.8 [facility] Comment on above: Performed By: #### C BC #### [facility] [address] [place] [address] Dr. Jeronimo Melgar Lymphocytes/100 WBC (Bld) 14.1 % Critically low 20.5-60.0 [facility] Comment on above: Performed By: #### C BC #### [facility] [address] [place] [address] Dr. Jeronimo Melgar MANUAL DIFF REQ NO Normal [facility] Comment on above: Performed By: #### C BC #### [facility] [address] [place] [address] Dr. Jeronimo Melgar MCH (RBC) [Entitic mass] 27.9 pg Normal 26.7-34.0 [facility] Comment on above: Performed By: #### C BC #### [facility] [address] [place] [address] Dr. Jeronimo Melgar MCHC (RBC) [Mass/Vol] 33.1 g/dL Normal 29.9-35.2 [facility] Comment on above: Performed By: #### C BC #### [facility] [address] [place] [address] Dr. Jeronimo Melgar MCV (RBC) [Entitic vol] 84.3 fL Normal 81.0-99.0 [facility] Comment on above: Performed By: #### C BC #### [facility] [address] [place] [address] Dr. Jeronimo Melgar MONO # 0.6 103/ul Normal 0.3-0.8 [facility] Comment on above: Performed By: #### C BC #### [facility] [address] [place] [address] Dr. Jeronimo Melgar Monocytes/100 WBC (Bld) 4.0 % Normal 1.7-12.0 [facility] Comment on above: Performed By: #### C BC #### [facility] [address] [place] [address] Dr. Jeronimo Melgar NEUT # 11.7 103/ul Critically high 1.4-6.5 [facility] Comment on above: Performed By: #### C BC #### [facility] [address] [place] [address] Dr. Jeronimo Melgar Neutrophils/100 WBC (Bld) 81.1 % Critically high 43.0-75.0 [facility] Comment on above: Performed By: #### C BC #### [facility] [address] [place] [address] Dr. Jeronimo Melgar Platelet mean volume (Bld) [Entitic vol] 10.2 fL Normal 9.5-13.5 [facility] Comment on above: Performed By: #### C BC #### [facility] [address] [place] [address] Dr. Jeronimo Melgar PLT 420 103/ul Normal 150-450 [facility] Comment on above: Performed By: #### C BC #### [facility] [address] [place] [address] Dr. Jeronimo Melgar RBC 4.45 106/ul Normal 4.20-5.40 [facility] Comment on above: Performed By: #### C BC #### [facility] [address] [place] [address] Dr. Jeronimo Melgar WBC 14.4 103/ul Critically high 4.0-11.0 [facility] Comment on above: Performed By: #### C BC #### [facility] [address] [address] [address] Jeronimo CARMICHAEL URINE PROFILEon 2 Bilirubin Ql (U) Negative Normal NEGATIVE [facility] Comment on above: Performed By: #### B OX #### [facility] [address] [place] [address] Dr. Jeronimo Melgar Clarity (U) CLEAR Normal CLEAR [facility] Comment on above: Performed By: #### B OX #### [facility] [address] [address] [address] Jeronimo Melgar Color (U) YELLOW Normal YELLOW [facility] Comment on above: Performed By: #### B OX #### [facility] [address] [place] [address] Dr. Jeronimo FLORES A micrscopic examination will be performed if indicated. Normal [facility] Comment on above: Performed By: #### B OX #### [facility] [address] [place] [address] Dr. Jeronimo Melgar Glucose Ql (U) Negative Normal NEGATIVE [facility] Comment on above: Performed By: #### B OX #### [facility] [address] [address] [address] Jeronimo Melgar Hemoglobin Ql (U) Negative Normal NEGATIVE [facility] Comment on above: Performed By: #### B OX #### [facility] [address] [place] [address] Dr. Jeronimo Melgar Ketones Ql (U) >=80 Abnormal NEGATIVE [facility] Comment on above: Performed By: #### B OX #### [facility] [address] [address] [address] Jeronimo Melgar LEUKOCYTES Negative Normal NEGATIVE [facility] Comment on above: Performed By: #### B OX #### [facility] [address] [place] [address] Dr. Jeronimo Melgar Nitrite Ql (U) Negative Normal NEGATIVE [facility] Comment on above: Performed By: #### B OX #### [facility] [address] [place] [address] Dr. Jeronimo Melgar pH (U) 7.0 [pH] Normal 5-9 [facility] Comment on above: Performed By: #### B OX #### [facility] [address] [place] [address] Dr. Jeronimo Melgar SPEC GRAVITY 1.020 Normal 1.005-<=1.025 [facility] Comment on above: Performed By: #### B OX #### [facility] [address] [place] [address] Dr. Jeronimo Melgar UA PROTEIN TRACE Normal NEGATIVE/ TRACE [facility] Comment on above: Performed By: #### B OX #### [facility] [address] [place] [address] Dr. Jeronimo Melgar UR MICRO IND NOT INDICATED Normal [facility] Comment on above: Performed By: #### B OX #### [facility] [address] [place] [address] Dr. Jeronimo Melgar Urobilinogen Qn (U) 1.0 {Pepito'U}/dL Normal 0.2 - 1. 0 [facility] Comment on above: Performed By: #### B OX #### [facility] [address] [place] [address] Dr. Jeronimo Melgar PROF CHEM 8 (BAS METB)on Anion gap [Moles/Vol] 12.7 mmol/L Normal [facility] Comment on above: Performed By: #### B MP #### [facility] [address] [place] [address] Dr. Jeronimo Melgar Calcium [Mass/Vol] 9.1 mg/dL Normal 8.5-10.1 [facility] Comment on above: Performed By: #### B MP #### [facility] [address] [place] [address] Dr. Jeronimo Melgar Chloride [Moles/Vol] 103 mmol/L Normal 98-107 [facility] Comment on above: Performed By: #### B MP #### [facility] [address] [place] [address] Dr. Jeronimo Melgar CO2 [Moles/Vol] 23.9 mmol/L Normal 21.0-32.0 [facility] Comment on above: Performed By: #### B MP #### [facility] [address] [address] [address] Jeronimo Melgar Creatinine [Mass/Vol] 0.78 mg/dL Normal 0.55-1.02 [facility] Comment on above: Performed By: #### B MP #### [facility] [address] [address] [address] Jeronimo Melgar EGFR-AF SLOVAK >60 Normal >=60 [facility] Comment on above: Performed By: #### B MP #### [facility] [address] [address] [address] Jeronimo Melgar EGFR-NON AF SLOVAK >60 Normal >=60 [facility] Comment on above: Performed By: #### B MP #### [facility] [address] [address] [address] Jeronimo Melgar Glucose [Mass/Vol] 155 mg/dL Critically high 74-106 [facility] Comment on above: Performed By: #### B MP #### [facility] [address] [address] [address] Jeronimo Melgar Potassium [Moles/Vol] 3.6 mmol/L Normal 3.5-5.1 [facility] Comment on above: Performed By: #### B MP #### [facility] [address] [address] [address] Jeronimo Melgar Sodium [Moles/Vol] 136 mmol/L Normal 136-145 [facility] Comment on above: Performed By: #### B MP #### [facility] [address] [address] [address] Jeronimo Melgar Urea nitrogen [Mass/Vol] 7.0 mg/dL Normal 7.0-18.0 [facility] Comment on above: Performed By: #### B MP #### [facility] [address] [place] [address] Dr. Jeronimo Melgar Urea nitrogen/Creatinine [Mass ratio] 9.0 mg/mg Normal [facility] Comment on above: Performed By: #### B MP #### [facility] [address] [address] [address] Jeronimo Melgar US PREG TVon 03-28-2022 [...] Date: 2022-03-28 16:32 Normal [facility] US PELVIS AND TRANSVAGon US PELVIS [...] Date: 2021-10-17 16:35 Normal [facility] CHLAMYDIA/GONOCOCCUS MILY (SW AB/URINE/PAPon 10-14-2021 Chlamydia trachomatis, MILY Positive Abnormal Negative [facility] Comment on above: Result Comment: . Performed By: #### C T/NGNA #### [facility] [address] [place], [place] [address] Dr. Jeronimo Melgar Neisseria gonorrhoeae, MILY Negative Normal Negative [facility] Comment on above: Performed By: #### C T/NGNA #### [facility] [address] [address] [address] Jeronimo Melgar VAGINITIS/VAGINOSIS DNA PROB Obed 10-13-2021 Lesa species Negative Normal Negative [facility] Comment on above: Performed By: #### V AGINT #### [facility] [address] [address] [address] Jeronimo Melgar Gardnerella vaginalis Negative Normal Negative [facility] Comment on above: Performed By: #### V AGINT #### [facility] [address] [address] [address] Jeronimo Melgar Trichomonas vaginalis Negative Normal Negative [facility] Comment on above: Performed By: #### V AGINT #### [facility] [address] [address] [address] Jeronimo Melgar XR foot LT min 3V*on 022 XR foot LT min 3V* [facility] [place] [address] [place] [address] XRay Report Signed Patient: Lia Desai MR#: [id number] : 2000 Acct:[id number] Age/Sex: 20 / F ADM Date: 07/18/21 Loc: ER Room: Type: [facility] ER Attending Dr: Ordering Provider: Oneil Ricci APRN Date of Service: 07/18/21 XR/XR foot LT min 3V*: Extremity Injury, Lower ([id number]) XR/XR ankle LT min 3V*: Extremity Injury, [...] Brewer Jr, MD 07/18/211812 Signed By: 07/18/211814 [facility] XR knee RT 4V*on 05-15-2021 XR knee RT 4V* [facility] [place] [address] XRay Report Signed Patient: Lia Desai MR#: [id number] : 2000 Acct:[id number] Age/Sex: 20 / F ADM Date: 05/15/21 Loc: ER Room: Type: [facility] ER Attending Dr: Ordering Provider: Yovani [...] No acute bony injury. Impression dictated by: nAa Juan M.D.05/15/2021 8:11 PM Dictation Location: [facility] Transcribed By: CYNDEE 05/15/212010 Dictated By: Ana Juan II, MD 05/15/212008 Signed By: 05/15/212010 [facility] Vital Signs Date Time Vital Sign Value Performing Clinician Francisco maria 07-18-2021 16:56-0400 Body height 167.64 cm [facility] 07-18-2021 16:56-0400 Body mass index (BMI) [Percentile] Per age and sex 98.9 % [facility] 07-18-2021 16:56-0400 Body mass index (BMI) [Ratio] 44.3 kg/m2 [facility] 07-18-2021 16:56-0400 Body temperature 98.3 [degF] [facility] 07-18-2021 16:56-0400 Body weight 124.6 kg [facility] 07-18-2021 16:56-0400 Diastolic blood pressure 108 mm[Hg] [facility] 07-18-2021 16:56-0400 Heart rate 80 /min [facility] 07-18-2021 16:56-0400 Respiratory rate 18 /min [facility] 07-18-2021 16:56-0400 Systolic blood pressure 162 mm[Hg] [facility] 05-15-2021 19:47-0500 Body height 167.64 cm [facility] 05-15-2021 19:47-0500 Body mass index (BMI) [Percentile] Per age and sex 98.9 % [facility] 05-15-2021 19:47-0500 Body mass index (BMI) [Ratio] 43.7 kg/m2 [facility] 05-15-2021 19:47-0500 Body temperature 98.8 [degF] [facility] 05-15-2021 19:47-0500 Body weight 122.95 kg [facility] 05-15-2021 19:47-0500 Diastolic blood pressure 65 mm[Hg] [facility] 05-15-2021 19:47-0500 Heart rate 75 /min [facility] 05-15-2021 19:47-0500 Respiratory rate 16 /min [facility] 05-15-2021 19:47-0500 SaO2% (BldA) [Mass fraction] 100 % [facility] 05-15-2021 19:47-0500 Systolic blood pressure 144 mm[Hg] [facility] Encounters Encounter Date Encounter Type Care Provider Facility Start: 10-01-2023 End: 10-01-2023 ambulatory ROBERT JANES Not Available Start: 09-17-2023 End: 09-17-2023 ambulatory ROBERT JANES Not Available Start: 09-04-2023 End: 09-04-2023 ambulatory ZEKE RAMÍREZ [facility] Start: 09-04-2023 End: 09-04-2023 Emergency department patient visit [facility] Start: 08-26-2023 End: 08-26-2023 ambulatory ROBERT JANES Not Available Start: 07-30-2023 End: 07-30-2023 ambulatory RAUL HAMMOND [facility] Start: 07-29-2023 End: 07-29-2023 ambulatory ROBERT JANES Not Available Start: 07-11-2023 End: 07-11-2023 Emergency department patient visit [facility] Start: 07-05-2023 End: 07-05-2023 Emergency department patient visit [facility] Start: 07-01-2023 End: 07-01-2023 ambulatory DAPHNIE CR Not Available Start: 06-18-2023 End: 06-18-2023 ambulatory ROBERT JANES Not Available Start: 06-03-2023 End: 06-03-2023 ambulatory ROBERT JANES Not Available Start: 05-26-2023 End: 05-26-2023 Emergency department patient visit Yassine [facility] Facility:[facility] Start: 05-17-2023 Clinisync Result Encounter Robert Janes DO Work Phone: [facility] External Department Unsolicited Start: 05-17-2023 Clinisync Result Encounter Robert Janes DO Work Phone: [facility] External Department Unsolicited Start: 05-15-2023 End: 05-15-2023 Emergency department patient visit Mamie Moore Facility:[facility] Start: 05-14-2023 Chart abstracting Robert Janes DO Work Phone: [facility] Start: 05-07-2023 Documentation procedure Leah Hernandez RN [facility] Certified Nurse Competitive Shopper - [place] [facility]keon Start: 05-02-2023 End: 05-02-2023 ambulatory ROBERT JANES Not Available Start: 04-19-2023 Telephone encounter Leah Hernandez RN [facility] Certified Nurse Competitive Shopper - [place] Start: 04-17-2023 Telephone encounter Leah Hernandez RN [facility] Certified Nurse Competitive Shopper - [place] Start: 04-15-2023 End: 04-15-2023 Emergency department patient visit Yassine Maldonado Facility:[facility] Start: 04-12-2023 End: 04-12-2023 ambulatory Oneil MILLS Facility:[facility] Start: 04-05-2023 Orders Only Leah Hernandez RN [facility] Certified Nurse Competitive Shopper - [place] Comment on above: Nausea and vomiting during (Primary Dx) Start: 03-01-2023 End: 03-01-2023 Emergency department patient visit Tom Smith Facility:[facility] Start: 02-26-2023 End: 02-26-2023 ambulatory Errol JUSTICE Facility:[facility] Start: 02-14-2023 End: 02-14-2023 ambulatory DORA MILLS Facility:[facility] Start: 11-15-2022 End: 11-15-2022 Emergency department patient visit None Provider Facility:[facility] Start: 08-25-2022 End: 08-26-2022 ambulatory Alaina Matta CNM Facility:[facility] Start: 08-11-2022 End: 08-11-2022 Emergency department patient visit Adamaris Jaeger PA-C Facility:[facility] Start: 08-08-2022 End: 08-09-[address] BALDOMERO ELLER . Facility: Start: 06-12-2022 End: 06-12-2022 ambulatory None Provider Facility:[facility] Start: 06-02-2022 End: 06-03-[address] BALDOMERO ELLER . Facility:[facility] Start: 05-18-2022 Encounter for other preprocedural examination DR BALDOMERO ELLER . [facility] Start: 05-17-2022 End: 05-17-[address] [...] DR ANA LEDESMA Facility:[facility] Start: 03-29-2022 ambulatory [facility] Facility:[facility] Start: 03-28-2022 End: 03-29-[address] BALDOMERO ELLER . Facility:[facility] Start: 10-17-2021 End: 10-18-[address] BALDOMERO ELLER . Facility:[facility] Start: 10-12-2021 End: 10-12-[address] BALDOMERO ELLER . Facility:[facility] Start: 07-18-2021 End: 07-18-2021 Emergency department patient visit [facility] Start: 05-15-2021 End: 05-15-2021 Emergency department patient visit [facility] Procedures Date Procedure Procedure Detail Performing Clinician Start: 05-17-2023 ALL CBC WITH AUTO DIFF Robert Marrero DO Work Phone: Start: 05-15-2021 X-ray of right knee Plan of Treatment Date Care Activity Detail Author Start: 05-15-2028 DTaP,Tdap and Td Vaccines (2 - Td or Tdap) DTaP,Tdap and Td Vaccines (2 - Td or Tdap) [facility] Start: 03-05-2024 Adult BMI Screening Adult BMI Screen ing [facility] Start: 03-05-2024 Tobacco Screening Tobacco Screening [facility] Start: 09-26-2023 Screening for Chlamy driss trachomatis Chlamydia Screening [facility] Start: 06-03-2023 End: 06-03-2023 Patient encounter procedure 06/03/2023 2:10 PM EST Routine [facility] [address] [place] [id number] Robert Marrero, DO [address] [place] [address] [facility] Start: 04-17-2023 End: 04-17-2023 ambulatory 04/17/2023 8:30 AM EST Initial [facility] Certified Nurse [facility] [place] [address] [phone] [facility] [place] Start: 12-07-2022 Influenza vaccination Influenza Vacc ine [facility] Start: 2022 Screening for malign ant neoplasm of cervix Pap Smear [facility] Start: 07-18-2021 X-ray of left ankle XR ankle LT min 3V* [facility] Start: 07-18-2021 X-ray of left foot XR foot LT min 3V * [facility] Start: 10-08-2019 Adult BMI Follow Up Plan Adult BMI Follow Up Plan [facility] Start: 2013 Depression Screening Depression Scre ening [facility] Patient Education [facility] Work Phone: Patient referral [facility] Work Phone: Payers Date Payer Category Payer Medicaid [id number] 2001 Unknown [id number] 2.16.84 0.1.433393.3.579.2.593 2001 Unknown [id number] 2.16.84 0.1.721199.3.579.2.593 2001 Unknown [id number] 2.16.84 0.1.267519.3.579.2.593 2001 Unknown [id number] 2.16.84 0.1.010899.3.579.2.593 2001 Unknown [id number] 2.16.84 0.1.706708.3.579.2.593 2001 Unknown [id number] 2.16.84 0.1.677373.3.579.2.593 2001 Unknown [id number] 2.16.84 0.1.813445.3.579.2.593 2001 Unknown [id number] 2.16.84 0.1.192851.3.579.2.593 2001 Unknown [id number] 2.16.84 0.1.173867.3.579.2.593 2001 Unknown [id number] 2.16.84 0.1.792190.3.579.2.593 2001 Unknown [id number] 2.16.84 0.1.558616.3.579.2.593 2001 Unknown [id number] 2.16.8 40.1.145654.3.579.2.718 2001 Unknown [id number] 2.16.8 40.1.448476.3.579.2.718 2001 Unknown [id number] 2.16.8 40.1.267481.3.579.2.718 2001 Unknown [id number] 2.16.8 40.1.266325.3.579.2.718 2001 Unknown [id number] 2.16.8 40.1.497893.3.579.2.718 2001 Unknown [id number] 2.16.8 40.1.911294.3.579.2.718 2001 Unknown [id number] 2.16.8 40.1.798135.3.579.2.718 2001 Unknown [id number] 2.16.8 40.1.160361.3.579.2.718 2001 Unknown [id number] 2.16.8 40.1.694991.3.579.2.718 2001 Unknown [id number] 2.16.8 40.1.282413.3.579.2.718 2001 Unknown [id number] 2.16.8 40.1.032151.3.579.2.718 2001 Unknown [id number] 2.16.8 40.1.652295.3.579.2.1286 2001 Unknown [id number] 2.16.8 40.1.774356.3.579.2.1286 2001 Unknown [id number] 2.16.8 40.1.039620.3.579.2.1286 2001 Unknown [id number] 2.16.8 40.1.960080.3.579.2.1286 2001 Unknown [id number] 2.16.8 40.1.939275.3.579.2.1286 2001 Unknown [id number] 2.16.84 0.1.560387.3.579.2.1259 2001 Unknown [id number] 2.16.84 0.1.372445.3.579.2.9 2001 Unknown [id number] 2.16.84 0.1.638478.3.579.2.1259 2001 Unknown [id number] 2.16.84 0.1.131551.3.579.2.1259 2001 Unknown [id number] 2.16.84 0.1.008908.3.579.2.9 2001 Unknown [id number] 2.16.84 0.1.021546.3.579.2.1259 2001 Unknown [id number] 2.16.84 0.1.642727.3.579.2.1259 2001 Unknown [id number] 2.16.84 0.1.304160.3.579.2.1259 1959 Unknown [id number] Self-pay Self Pay [id number] Social History Date Type Detail Facility Start: 07-18-2021 End: 05-14-2023 Tobacco smoking status NHIS Never smoked tobacco (finding) [facility] Start: 2000 Sex Assigned At Female [facility] History of tobacco use Passive smoker [facility] Start: 08-01-2022 Tobacco use and exposure Smokeless tobacco non-user [facility] Start: 03-05-2023 Alcohol intake Ex-drinker (finding) [facility] Start: 03-05-2023 End: 05-14-2023 History of Social function [facility] Start: 03-05-2023 End: 05-14-2023 Tobacco use panel [facility] Housing Instability Unknown [facility] Start: 08-14-2022 Alcohol Comment social [facility] Start: 2001 Sex Assigned At Not on file [facility] Start: 05-14-2023 Alcohol intake Lifetime non-drinker (finding) [facility] Start: 03-20-2023 [facility] Start: 05-01-2023 Gender identity Identifies as female gender (finding) [facility] Start: 05-01-2023 Sexual orientation Heterosexual (finding) [facility] Clinical Notes 06-12-2022 [...] Keep all follow-up visits. Medicines ? Take hurp-ctg-iinrbvt and prescription medicines only as told by [...] be an em (more content not included)... [facility] 05-15-2023 Note Education Materials Obstetrics and [...] uri tea. ? Taking prescription medicine or yppe-bat-kscustn medicine as told by your health care [...] or sour. These include lemonade, uri prabhakar, lemon?[place] soda, ice water, and sparkling water. Things [...] food. The s (more content not included)... [facility] 05-07-2023 History of Presen t illness Narrative Letter sent to patient via mal and also to her My Chart regarding her missed OB intake appointment and also her MICHAEL for her Chlamydia. documented in this encounter [facility] 04-19-2023 Miscellaneous Notes Called patient to reschedule her IOB intake visit. No answer. Left message to call office to reschedule her appointment. documented in this encounter [facility] 04-19-2023 Telephone encounter Note Called patient to reschedule her IOB intake visit. No answer. Left message to call office to reschedule her appointment. [facility] 04-17-2023 Miscellaneous Notes Patient called for her OB intake per phone. No answer. Left message to call office. documented in this encounter [facility] 04-17-2023 Telephone encounter Note Patient called for her OB intake per phone. No answer. Left message to call office. [facility] 04-15-2023 Note Education Materials Gastroenterology Nausea and [...] ? Low-calorie sports drinks. ? Eat bland, uqzi-su-yynlpc foods in small amounts as you are able, such as: ? Bananas. ? Applesauce. ? Rice. ? Low-fat (lean) meats. ? Goff. ? Crackers. ? Avoid drinking fluids that have a lot of sugar or caffeine in them. This includes energy drinks, sports drinks, and soda. ? Avoid alcohol. ? Avoid spicy or fatty foods. General instructions ? Take qlmb-ebc-jdkxvkz and prescription medicines only as told by your doctor. ? Drink enough fluid to keep your pee (urine) pale yellow. ? Wash your hands often with soap and water for at least 20 seconds. If you cannot use soap and water, use hand water supply engineer. ? Make sure that everyone in your [...] doctor about eating and drinking. ? Take olgy-bbj-yonbsvd and prescription medicines only as told by your doctor. ? Contact your doctor if your symptoms get worse or you have new symptoms. ? Keep all follow-up visits. This information is not intended to replace advice given to you by your health care provider. Make sure you discuss any questions you have with your health care provider. Document Revised: 09/29/2021 Document Reviewed: 09/29/2021 [email or web address] Patient Education ? 2022 [employer]. [facility] 04-12-2023 Note Patient Education Ma terials [...] these instructions at home: Medicines ? Take spsg-zju-ehekssi and prescription medicines only as told by your health care provider. Do not use any prescription, ocno-hle-uwpnwzx, or herbal medicines for morning sickness without [...] provider. Document Revised: 11/07/2020 Document Reviewed: 10/17/2020 [email or web address] Patient Education ? 2022 [employer]. [facility] 03-01-2023 Note Education Materials Pulmonary Medicine [...] Follow these instructions at home: ? Take ugab-ocx-agiuumx and prescription medicines only as told by [...] and water are not available, use hand water supply engineer. ? Avoid contact with people who have [...] is easier to cough up. ? Take sibw-pxi-cwethvv an (more content not included)... [facility] 02-26-2023 Note Patient Education Ma terials [...] to help relieve symptoms, such as: ? Gzwj-uwd-wokrpti cold medicines. ? Cough suppressants. Coughing is [...] other clear broths. General instructions ? Take ccdv-npu-dsrwrjw and prescription medicines only as told by [...] and water are not available, use hand water supply engineer. ? Avoid touching your mouth, face, eyes, [...] These symptoms may (more content not included)... [facility] 02-14-2023 Note Patient Education Ma terials [...] elastic wrap to support your hand. ? Ptqs-qeo-xncwrcd medicines to control pain. Follow these instructions [...] or lying down. General instructions ? Take gnya-dmd-rkjofzo and prescription medicines only as told by [...] provider. Document Revised: 07/13/2021 Document Reviewed: 07/13/2021 [email or web address] Patient Education ? 2022 [email or web address] How to Use Cold Therapy Cold [...] on your pr (more content not included)... [facility] 11-15-2022 Note Education Materials Orthopedics Sciatica [...] by your health care provider. Stretching and otrsg-ae-fsvkwm exercises These exercises warm up your muscles [...] standing, keep y (more content not included)... [facility] 08-11-2022 Note Education Materials Obstetrics and [...] these instructions at home: Medicines ? Take kgoz-fnd-dntxwpx and prescription medicines only as told by [...] Where to find more information ? [employer]: acog.org ? [place] Department of Health and Human Services Office of Women's Health: hrsa.gov/falrys-ehtqyb-kykhgf Contact a doctor if: ? You have [...] ? Text the Crisis Text Line at 236611. Summary ? A miscarriage is the loss [...] provider. Document Revised: 09/23/2020 Document Reviewed: 09/23/2020 [email or web address] Patient Education ? 2021 [employer]. [facility] 06-12-2022 Note Patient Education Ma terials [...] these instructions at home: Medicines ? Take kyza-nmr-qstbydl and prescription medicines only as told by [...] things can cause a cough. ? Take xvls-ykk-ewkkuov and prescription medicines only as told by [...] provider. Document Revised: 05/13/2020 Document Reviewed: 04/13/2019 [email or web address] Patient Education ? 2021 [employer]. Infectious Disease Pharyngitis Pharyngitis is a sore [...] these instructions at home: Medicines ? Take sast-rhn-kqrepsj and prescription medicines only as told by your doctor. ? If you were prescribed an antibiotic medicine, take it as told by your doctor. Do not stop taking the antibiotic even if you start to feel better. ? Use throat loze (more content not included)... [facility] Evaluation note No assessment inform ation available [facility] Work Phone: Evaluation note Diagnosis Nausea [...] NON STAFF Primary Care Provider Active Oneil Ricic APRN Emergency Provider Active Team Status: Inactive Member Role Status Dates NON STAFF Primary Care Provider Active Yovani Valle PA-C Emergency Provider Active Team Status: Active Member Role Status Dates NON STAFF Primary Care Provider Active Tariff Counsel Relationship Special[facility] [address] [facility] [place] [place] [facility] - General Family Medicine 08/11/18 Tariff Counsel Relationship Specialty Start Date End Date [facility] [address] [facility] [facility] [place] - General Family Medicine 08/11/18 Tariff Counsel Relationship Specialty Start Date End Date [facility] [address] [facility] [place] [place] - General Family Medicine 08/11/18 Goals (unrecognized section and content) Goals may be documented in a n alternate sectionNot on filedocumented as of this encounterNot on filedocumented as of this encounterNot on filedocumented as of this encounterNot on filedocumented as of this encounter INFORMATION SOURCE (unrecogn ized section and content) DATE CREATED AUTHOR 07/27/2021 [facility] DATE CREATED AUTHOR AUTHOR'S ORGANIZ ATION 08/16/2022 [facility] DATE CREATED AUTHOR AUTHOR'S ORGANIZ ATION 06/08/2023 [facility] DATE CREATED AUTHOR AUTHOR'S ORGANIZ ATION 09/05/2023 [facility] DATE CREATED AUTHOR AUTHOR'S ORGANIZ ATION 10/02/2023 [facility] FOR RECORDS PERTAINING TO PATIENTS WHO ARE [...] BE BASED ON THE PRIMARY CLINICAL RECORDS. [facility] [employer] provides no warranty or guarantee of the accuracy or completeness of information in this document.
== END 2023-10-04 16:20 | disposition home or self-care (01) ==
LOC: ER 15:20 → FBC 15:24
PROVIDERS: Admitting Provider Obstetrics & Gynecology Gynecology; Emergency Provider Emergency Medicine; Visit Provider Obstetrics & Gynecology Gynecology
DX: O26.853 Spotting complicating pregnancy, third trimester (principal); Z3A.30 30 weeks gestation of pregnancy
CPT/HCPCS: 36415; 59025; 76815; 76817; 81001; 86900; 86901; 99285; G0378

== ENCOUNTER 2023-11-08 22:48 | Observation (INO) | payer OTHER, SELFPAY ==
--- OUTSIDE RECORDS SUMMARY | 2023-11-08 22:52 | XMS_ITS | CCD ---
Author Organization [facility] Care Team Providers Care Director Of Retention Name Role Phone NON STAFF Primary Care Provider LAURA Kraft Emergency Provider NICOLE Ricci Emergency Provider DAPHNIE ., DR ALEXANDRE Attending Unavailabl e KARASIK ., DR ALEXANDRE Admitting Unavailabl [facility] Unava ilable KARASIK ., DR ALEXANDRE Consulting Unavailabl e LAVINIA, DR CHRISTIAN Doyle Consulting Unavailable KARASIK ., DR ALEXANDRE Consulting Unavailabl e KARASIK ., DR ALEXANDRE Attending Unavailabl e [facility] Unava ilable KARASIK ., DR ALEXANDRE Admitting Unavailabl e ANGELA SCOTT Consulting Unavailable DINA, DR ANA Dennis Attending Unavailable DINA, DR ANA Dennis Admitting [facility] Unava [facility]able DINA, DR ANA Dennis Consulting Unavailable KILO ., MR CUADRA Consulting Unavailable KARASIK ., DR ALEXANDRE Attending Unavailabl e [facility] Unava ilable KARASIK ., DR ALEAXNDRE Admitting Unavailabl e KARASIK ., DR ALEXANDRE Attending Unavailabl e [facility] Unava ilable KARASIK ., DR ALEXANDRE Admitting Unavailabl e KARASIK ., DR ALEXANDRE Consulting Unavailabl e JOANNE HUDSON Consulting Unavailable GAVIN ATKINS Consulting Unavailable [facility] Unava ilable KARASIK ., DR ALEXANDRE [...] KARASIK ., DR ALEXANDRE Attending Unavailabl e [facility] Primary Care Unava ilable KARASIK ., DR ALEXANDRE Admitting Unavailabl e KARASIK ., DR ALEXANDRE Consulting Unavailabl e ZIEBER, ANGELA Dennis Consulting Unavailable KARASIK ., DR ALEXANDRE Attending Unavailabl e KARASIK ., DR ALEXANDRE Admitting Unavailabl e [facility] Primary Care Unava ilable KARASIK ., DR ALEXANDRE Consulting Unavailabl e KARASIK ., DR ALEXANDRE Consulting Unavailabl e KARASIK ., DR ALEXANDRE Attending Unavailabl e [facility] Primary [facility] Unava ilable KARASIK ., DR ALEXANDRE Admitting Unavailabl e WEST, DR CHRISTIAN Doyle Consulting Unavailable REQUEST, DR AMBER LISTED Consulting [facility] [place] Primary Care Provider Unavailable Primary Care Provider [...] Care Unavailable Yassine Maldonado Admitting Unavailable Yassine Maldnoado Attending Unavailable JANES, ROBERT R Primary Care Unavailable Tom Smith Admitting Unavailab Tom Canas Attending Unavailab le Provider, Unlisted Primary Care Unavailable Provider, None Primary Care Unavailable Anusha Palomo Admitting Unavailable Anusha Palomo Attending Unavailable Provider, None Primary Care Unavailable Nelson Sharma Admitting Unavailable Sharma, Nelson Attending Unavailable SERVICES, [facility] Unava ilable KENDRA EDWARDS Attending Unavailable SERVICES, [facility] Unava ilable LOZOYA SYMONE L Attending Unavailable RAUL HAMMOND Admitting Unavailable RAUL HAMMOND Attending Unavailable SERVICES, [facility] Unava ilable SERVICES, [facility] Unava ilable FRIES, ZEKE S Admitting Unavailable FRIES, ZEKE S Attending Unavailable SERVICES, [facility] Unava ilable JANES, ROBERT Attending Unavailable JANES, ROBERT Attending Unavailable TAYODAPHNIE Attending Unavailable JANES, ROBERT Attending Unavailable JANES, ROBERT Attending Unavailable JANES, ROBERT Attending Unavailable JANES, ROBERT Attending Unavailable JANES, ROBERT Attending Unavailable TAYO, DAPHNIE Attending Unavailable Allergies Allergy Classification Reported Allergen(s) Allergy Type Date of Onset Reaction(s) Facility (1 source) [facility] Drug Allergy [facility] Repository (2 sources) Azithromycin; Translations: [AZITHROMYCIN] Drug Allergy 2 [facility] Repository (5 sources) Adhesive agent; Translations: [ADHESIVE] Propensity to adverse reactions to drug 3 [facility] (6 sources) Azithromycin Drug Allergy 2 [facility] (2 sources) Macrolides And Ketolides Drug Allergy 4 Unknown [facility] (2 sources) Wound Dressing Adhesive Drug Allergy 4 [facility] (1 source) Adhesive bandage; Translations: [Adhesive Bandage] Propensity to adverse reactions (disorder) [facility] Repository (1 source) Azithromycin; Translations: [Zithromax] Drug Allergy [facility] Repository (1 source) metroNIDAZOLE; Translations: [METRONIDAZOLE] [facility] Medications Current Medications Medication Drug Class(es) Dates Sig (Normalized) Sig (Original) [id number] 200 actuat albuterol 0.09 mg/actuat metered dose [...] 09-04-2023 Bilirubin Ql (U) Negative Normal NEG [facility] Comment on above: Performed By: #### C HILLARY CANCINO, 3040-3 #### [facility] ([id number]) [address] [place] [address] 14774 BLOOD/HGB Negative Normal NEG [facility] Comment on above: Performed By: #### C HILLARY CANCINO, 3040-3 #### [facility] ([id number]) [address] [place] [address] 14357 Color (U) YELLOW Normal YELLOW [facility] Comment on above: Performed By: #### C HILLARY CANCINO, 3040-3 #### [facility] ([id number]) [address] [place] [address] 39628 Glucose Ql (U) Negative Normal NEG [facility] Comment on above: Performed By: #### C HILLARY CANCINO, 3039-3 #### [facility] ([id number]) [address] [place] [address] [place] [address] Ketones Ql (U) Negative Normal NEG [facility] Comment on above: Performed By: #### Shakeel CANCINO CMP, 3039-3 #### [facility] ([id number]) [address] [place] [address] [place] [address] Leukocyte esterase Test strip Ql (U) Trace Abnormal NEG [facility] Comment on above: Performed By: #### Shakeel CANCINO CMP, 3039-3 #### [facility] ([id number]) [address] [place] [address] 06356 Nitrite Ql (U) Negative Normal NEG [facility] Comment on above: Performed By: #### Shakeel CANCINO CMP, 3039-3 #### [facility] ([id number]) [address] [place] [address] [place] [address] pH (U) 6.5 [pH] Normal 5.0-8.5 [facility] Comment on above: Performed By: #### Shakeel CANCINO CMP, 3039-3 #### [facility] ([id number]) [address] [place] [address] 67433 Protein Ql (U) Negative Normal NEG [facility] Comment on above: Performed By: #### Shakeel CANCINO CMP, 3039-3 #### [facility] ([id number]) [address] [place] [address] [place] [address] R.B.CELLS 0 /hpf Normal 0-5 [facility] Comment on above: Performed By: #### Shakeel CANCINO CMP, 3039-3 #### [facility] ([id number]) [address] [place] [address] [place] [address] Specific gravity (U) [Rel density] 1.020 Normal 1.003-1.035 [facility] Comment on above: Performed By: #### C BARAK, CMP, 3040-3 #### [facility] ([id number]) [address] [place] [address] 09311 SQUAMOUS EPITHELIUM 5 /hpf Normal 0-5 [facility] Comment on above: Performed By: #### Shakeel CANCINO, CMP, 3040-3 #### [facility] ([id number]) [address] [place] [address] 18420 TURBIDITY HAZY Abnormal CLEAR [facility] Comment on above: Performed By: #### Shakeel CANCINO, CMP, 3040-3 #### [facility] ([id number]) [address] [place] [address] 45845 Urobilinogen Qn (U) 1.0 {Pepito'U}/dL Normal <1.1 [facility] Comment on above: Performed By: #### Shakeel CANCINO, [facility], 3040-3 #### [facility] ([id number]) [address] [place] [address] 15650 W.B.CELLS 2 /hpf Normal 0-5 [facility] Comment on above: Performed By: #### Shakeel CANCINO, [facility], 3040-3 #### [facility] ([id number]) [address] [place] [address] 26094 COMPLETE BLOOD COUNTon 07-29 Erythrocyte distribution width (RBC) [Ratio] 13.5 % Normal 11.5-15.0 [facility] Comment on above: Performed By: #### C BC, CMP #### [facility] ([id number]) [address] [place] [address] 56195 Hematocrit (Bld) [Volume fraction] 32.1 % Low 35-47 [facility] Comment on above: Performed By: #### Shakeel BC, CMP #### [facility] ([id number]) [address] [place] [address] 95863 Hemoglobin (Bld) [Mass/Vol] 11.0 g/dL Low 11.7-15.5 [facility] Comment on above: Performed By: #### C BC, CMP #### [facility] ([id number]) [address] [place] [address] 47411 MCH (RBC) [Entitic mass] 28.8 pg Normal 27-34 [facility] Comment on above: Performed By: #### C BC, CMP #### [facility] ([id number]) [address] [place] [address] 12046 MCHC (RBC) [Mass/Vol] 34.3 g/dL Normal 32-36 [facility] Comment on above: Performed By: #### C BC, CMP #### [facility] ([id number]) [address] [place] [address] 26805 MCV (RBC) [Entitic vol] 84 fL Normal 80-100 [facility] Comment on above: Performed By: #### C BC, CMP #### [facility] ([id number]) [address] [place] [address] 40955 Platelet mean volume (Bld) [Entitic vol] 8.9 fL Normal 7-12 [facility] Comment on above: Performed By: #### C BC, CMP #### [facility] ([id number]) [address] [place] [address] 11061 Platelets (Bld) [#/Vol] 354 10*3/uL Normal 150-450 [facility] Comment on above: Performed By: #### C BC, CMP #### [facility] ([id number]) [address] [place] [address] 28274 RBC COUNT 3.82 X10E12/L Normal 3.80-5.20 [facility] Comment on above: Performed By: #### C BC, CMP #### [facility] ([id number]) [address] [place] [address] 97910 WBC (Bld) [#/Vol] 12.0 10*3/uL High 4.0-11.0 [facility] Comment on above: Performed By: #### C BC, CMP #### [facility] ([id number]) [address] [place] [address] 35435 COMPREHENSIVE METABOLIC PANE Alex 07-30-2023 Albumin [Mass/Vol] 3.0 g/dL Low 3.2-5.3 [facility] Comment on above: Performed By: #### C BC, CMP #### [facility] ([id number]) [address] [place] [address] 23197 ALP [Catalytic activity/Vol] 67 U/L Normal 39-130 [facility] Comment on above: Performed By: #### C BC, CMP #### [facility] ([id number]) [address] [place] [address] 23711 ALT [Catalytic activity/Vol] 10 U/L Normal 0-31 [facility] Comment on above: Performed By: #### C BC, CMP #### [facility] ([id number]) [address] [place] [address] 90151 Anion gap [Moles/Vol] 7 mmol/L Normal 5-15 [facility] Comment on above: Performed By: #### C BC, CMP #### [facility] ([id number]) [address] [place] [address] 15650 AST [Catalytic activity/Vol] 12 U/L Normal 0-41 [facility] Comment on above: Performed By: #### C BC, CMP #### [facility] ([id number]) [address] [place] [address] 56394 Bilirubin [Mass/Vol] 0.5 mg/dL Normal 0.3-1.2 [facility] Comment on above: Performed By: #### C BC, CMP #### [facility] ([id number]) [address] [place] [address] 33987 Calcium [Mass/Vol] 8.1 mg/dL Low 8.5-10.5 [facility] Comment on above: Performed By: #### C BC, CMP #### [facility] ([id number]) [address] [place] [address] 09708 Chloride [Moles/Vol] 108 mmol/L Normal 98-109 [facility] Comment on above: Performed By: #### C BC, CMP #### [facility] ([id number]) [address] [place] [address] 68787 CO2 [Moles/Vol] 19 mmol/L Low 22-32 [facility] Comment on above: Performed By: #### C BC, CMP #### [facility] ([id number]) [address] [place] [address] 10606 Creatinine [Mass/Vol] 0.52 mg/dL Normal 0.40-1.00 [facility] Comment on above: Result Comment: METH OD TRACEABLE TO IDMS STANDARD Performed By: #### C BC, CMP #### [facility] ([id number]) [address] [place] [address] 16775 eGFR (CKD-EPI) NON-RACE DEPENDENT >90 Normal >59 [facility] Comment on above: Result Comment: Reported eGFR is based on the CKD-EPI 2020 equation that does not use a race coefficient. Performed By: #### C BC, CMP #### [facility] ([id number]) [address] [place] [address] 14531 Glucose [Mass/Vol] 79 mg/dL Normal 65-99 [facility] Comment on above: Performed By: #### C BC, CMP #### [facility] ([id number]) [address] [place] [address] 12378 Potassium [Moles/Vol] 3.9 mmol/L Normal 3.5-5.0 [facility] Comment on above: Performed By: #### C BC, CMP #### [facility] ([id number]) [address] [place] [address] 94909 Protein [Mass/Vol] 6.1 g/dL Normal 6.0-8.0 [facility] Comment on above: Performed By: #### C BC, CMP #### [facility] ([id number]) [address] [place] [address] 62387 Sodium [Moles/Vol] 134 mmol/L Normal 134-146 [facility] Comment on above: Performed By: #### C BC, CMP #### [facility] ([id number]) [address] [place] [address] 63462 Urea nitrogen [Mass/Vol] 6 mg/dL Normal 5-23 [facility] Comment on above: Performed By: #### C BC, CMP #### [facility] ([id number]) [address] [place] [address] 46471 DRUG SCREEN, URINEon 024 AMPHETAMINE/METHAMP Negative Normal NEG [facility] Comment on above: Result Comment: AMPH /METH screening cut off = 1000 ng/mL Performed By: #### D FLOWER #### [facility] ([id number]) [address] [place] [address] [place] [address] BARBITURATES Negative Normal NEG [facility] Comment on above: Result Comment: Deirdre iturates screening cut off value = 200 ng/mL Performed By: #### D FLOWER #### [facility] ([id number]) [address] [place] [address] 44640 BENZODIAZEPINES Negative Normal NEG [facility] Comment on above: Result Comment: Vinny odiazepines screening cut off value = 200 ng/mL Performed By: #### D FLOWER #### [facility] ([id number]) [address] [place] [address] 96174 CANNABINOIDS Negative Normal [facility] Comment on above: Result Comment: Lavern abinoids/THC screening cut off value = 50 ng/mL Performed By: #### D FLOWER #### [facility] ([id number]) [address] [place] [address] 45490 COCAINE METABOLITE Negative Normal NEG [facility] Comment on above: Result Comment: Coca ine screening cut off value = 300 ng/mL Performed By: #### D FLOWER #### [facility] ([id number]) [address] [place] [address] 04942 ECSTASY Negative Normal [facility] Comment on above: Result Comment: Ecst asy screening cut off value = 500 ng/mL This report is intended for use in clinical monitoring or management of patients. Performed By: #### D FLOWER #### [facility] ([id number]) [address] [place] [address] 92752 METHADONE Negative Normal [facility] Comment on above: Result Comment: Meth adone screening cut off value = 300 ng/mL. Performed By: #### D FLOWER #### [facility] ([id number]) [address] [place] [address] 81454 OPIATES Negative Normal NEG [facility] Comment on above: Result Comment: Opia bernadette screening cut off value = 300 ng/mL NOTE: This test is used for the detection of codeine, hydrocodone (>1000 ng/mL), morphine and hydromorphone (>900 ng/mL) in urine. Performed By: #### D FLOWER #### [facility] ([id number]) [address] [place] [address] 22326 OXYCODONE Negative Normal [facility] Comment on above: Result Comment: Oxyc odone screening cut off value = 300 ng/mL NOTE: This test is used for the detection of oxycodone and oxymorphone in urine. Performed By: #### D FLOWER #### [facility] ([id number]) [address] [place] [address] 12647 PHENCYCLIDINE Negative Normal NEG [facility] Comment on above: Result Comment: Phen cyclidine screening cut off value = 25 ng/mL Performed By: #### D FLOWER #### [facility] ([id number]) [address] [place] [address] 95097 URINALYSISon 07-30-2023 Bilirubin Ql (U) Negative Normal NEG [facility] Comment on above: Performed By: #### C BARAK, CMP, 3040-3 #### [facility] ([id number]) [address] [place] [address] 15399 BLOOD/HGB Negative Normal NEG [facility] Comment on above: Performed By: #### C BCA, CMP, 3040-3 #### [facility] ([id number]) [address] [place] [address] 88075 Color (U) YELLOW Normal YELLOW [facility] Comment on above: Performed By: #### C BCA, CMP, 3040-3 #### [facility] ([id number]) [address] [place] [address] 11525 Glucose Ql (U) Negative Normal NEG [facility] Comment on above: Performed By: #### C BCA, CMP, 3040-3 #### [facility] ([id number]) [address] [place] [address] 69066 Ketones Ql (U) Negative Normal NEG [facility] Comment on above: Performed By: #### C BCA, CMP, 3040-3 #### [facility] ([id number]) [address] [place] [address] 85821 Leukocyte esterase Test strip Ql (U) Negative Normal NEG [facility] Comment on above: Performed By: #### Shakeel CANCINO, CMP, 3039-3 #### [facility] ([id number]) [address] [place] [address] 60255 Nitrite Ql (U) Negative Normal NEG [facility] Comment on above: Performed By: #### Shakeel CANCINO, CMP, 3039-3 #### [facility] ([id number]) [address] [place] [address] 52287 pH (U) 7.0 [pH] Normal 5.0-8.5 [facility] Comment on above: Performed By: #### Shakeel CANCINO CMP, 3039-3 #### [facility] ([id number]) [address] [place] [address] 63675 Protein Ql (U) Negative Normal NEG [facility] Comment on above: Performed By: #### Shakeel CANCINO CMP, 3 #### [facility] ([id number]) [address] [place] [address] 85312 R.B.CELLS 0 to 1 Normal 0-5 [facility] Comment on above: Performed By: #### Shakeel CANCINO, CMP, 3039-3 #### [facility] ([id number]) [address] [place] [address] 43063 Specific gravity (U) [Rel density] 1.020 Normal 1.003-1.035 [facility] Comment on above: Performed By: #### Shakeel CANCINO, CMP, 3039-3 #### [facility] ([id number]) [address] [place] [address] 20143 SQUAMOUS EPITHELIUM 2 /hpf Normal 0-5 [facility] Comment on above: Performed By: #### Shakeel CANCINO, CMP, 3039-3 #### [facility] ([id number]) [address] [place] [address] 17544 TURBIDITY CLOUDY Abnormal CLEAR [facility] Comment on above: Performed By: #### Shakeel CANCINO CMP, 0-3 #### [facility] ([id number]) [address] [place] [address] 97279 Urobilinogen Qn (U) 0.2 {Pepito'U}/dL Normal <1.1 [facility] Comment on above: Performed By: #### Shakeel CANCINO CMP, 3039-3 #### [facility] ([id number]) [address] [place] [address] 93752 W.B.CELLS 1 /hpf Normal 0-5 [facility] Comment on above: Performed By: #### Shakeel CANCINO CMP, 3039-3 #### [facility] ([id number]) [address] [place] [address] 45650 CBC AND AUTO DIFFon 07-11-19 24 ABSOLUTE BASOPHIL 0.0 X10E9/L Normal 0.0-0.2 [facility] Comment on above: Performed By: #### Shakeel CANCINO CMP, 3039-3 #### [facility] ([id number]) [address] [place] [address] 17546 ABSOLUTE NEUTROPHIL 9.7 X10E9/L High 1.5-6.6 [facility] Comment on above: Performed By: #### Shakeel CANCINO CMP, 3039-3 #### [facility] ([id number]) [address] [place] [address] 51226 Basophils/100 WBC (Bld) 0.2 % Normal [facility] Comment on above: Performed By: #### Shakeel CANCINO CMP, 3039-3 #### [facility] ([id number]) [address] [place] [address] 88105 Eosinophils (Bld) [#/Vol] 0.1 10*3/uL Normal 0.0-0.4 [facility] Comment on above: Performed By: #### Shakeel CANCINO CMP, 3 #### [facility] ([id number]) [address] [place] [address] 54198 Eosinophils/100 WBC (Bld) 0.5 % Normal [facility] Comment on above: Performed By: #### Shakeel CANCINO CMP, 3039-06 #### [facility] ([id number]) [address] [place] [address] 33495 Erythrocyte distribution width (RBC) [Ratio] 13.4 % Normal 11.5-15.0 [facility] Comment on above: Performed By: #### Shakeel CANCINO CMP, 3039-06 #### [facility] ([id number]) [address] [place] [address] 08273 Hematocrit (Bld) [Volume fraction] 37.1 % Normal 35-47 [facility] Comment on above: Performed By: #### Shakeel CANCINO CMP, 3 #### [facility] ([id number]) [address] [place] [address] 46734 Hemoglobin (Bld) [Mass/Vol] 12.6 g/dL Normal 11.7-15.5 [facility] Comment on above: Performed By: #### Shakeel CANCINO CMP, 3039-06 #### [facility] ([id number]) [address] [place] [id number] Lymphocytes (Bld) [#/Vol] 3.1 10*3/uL Normal 1.0-3.5 [facility] Comment on above: Performed By: #### Shakeel CANCINO CMP, 3 #### [facility] ([id number]) [address] [place] [address] [id number] Lymphocytes/100 WBC (Bld) 22.3 % Normal [facility] Comment on above: Performed By: #### Shakeel CANCINO CMP, 3 #### [facility] ([id number]) [address] [place] [address] 31550 MCH (RBC) [Entitic mass] 28.3 pg Normal 27-34 [facility] Comment on above: Performed By: #### Shakeel CANCINO CMP, 3039-3 #### [facility] ([id number]) [address] [place] [address] 43345 MCHC (RBC) [Mass/Vol] 33.9 g/dL Normal 32-36 [facility] Comment on above: Performed By: #### Shakeel CANCINO CMP, 3 #### [facility] ([id number]) [address] [place] [address] 27878 MCV (RBC) [Entitic vol] 84 fL Normal 80-100 [facility] Comment on above: Performed By: #### Shakeel CANCINO CMP, 3 #### [facility] ([id number]) [address] [place] [address] 31184 Monocytes (Bld) [#/Vol] 1.1 10*3/uL High 0-0.9 [facility] Comment on above: Performed By: #### Shakeel CANCINO CMP, 3 #### [facility] ([id number]) [address] [place] [address] 04684 Monocytes/100 WBC (Bld) 8.0 % Normal [facility] Comment on above: Performed By: #### Shakeel CANCINO CMP, 3039-06 #### [facility] ([id number]) [address] [place] [address] 71592 Neutrophils/100 WBC (Bld) 69.0 % Normal [facility] Comment on above: Performed By: #### Shaekel CANCINO CMP, 3039-3 #### [facility] ([id number]) [address] [place] [address] 46006 Platelet mean volume (Bld) [Entitic vol] 8.3 fL Normal 7-12 [facility] Comment on above: Performed By: #### C BARAK CMP, 3040-3 #### [facility] ([id number]) [address] [place] [address] 04912 Platelets (Bld) [#/Vol] 380 10*3/uL Normal 150-450 [facility] Comment on above: Performed By: #### Shakeel CANCINO CMP, 3039-3 #### [facility] ([id number]) [address] [place] [address] 77177 RBC COUNT 4.43 X10E12/L Normal 3.80-5.20 [facility] Comment on above: Performed By: #### Shakeel CANCINO, CMP, 0-3 #### [facility] ([id number]) [address] [place] [address] 86730 WBC (Bld) [#/Vol] 14.0 10*3/uL High 4.0-11.0 [facility] Comment on above: Performed By: #### Shakeel CANCINO CMP, 0-3 #### [facility] ([id number]) [address] [place] [address] 42743 COMPREHENSIVE METABOLIC PANE Alex 07-11-2023 Albumin [Mass/Vol] 3.4 g/dL Normal 3.2-5.3 [facility] Comment on above: Performed By: #### C BARAK, CMP, 0-3 #### [facility] ([id number]) [address] [place] [address] 28446 ALP [Catalytic activity/Vol] 65 U/L Normal 39-130 [facility] Comment on above: Performed By: #### Shakeel BCA, CMP, 0-3 #### [facility] ([id number]) [address] [place] [address] 79964 ALT [Catalytic activity/Vol] 13 U/L Normal 0-31 [facility] Comment on above: Performed By: #### C BARAK, CMP, 0-3 #### [facility] ([id number]) [address] [place] [address] 57261 Anion gap [Moles/Vol] 4 mmol/L Low 5-15 [facility] Comment on above: Performed By: #### C BCA, CMP, 3039-3 #### [facility] ([id number]) [address] [place] [address] 43462 AST [Catalytic activity/Vol] 14 U/L Normal 0-41 [facility] Comment on above: Performed By: #### Shakeel CANCINO, CMP, 3039-3 #### [facility] ([id number]) [address] [place] [address] 22194 Bilirubin [Mass/Vol] 0.5 mg/dL Normal 0.3-1.2 [facility] Comment on above: Performed By: #### Shakeel BCA, CMP, 3039-3 #### [facility] ([id number]) [address] [place] [address] 62205 Calcium [Mass/Vol] 8.2 mg/dL Low 8.5-10.5 [facility] Comment on above: Performed By: #### C BCA, CMP, 3039-3 #### [facility] ([id number]) [address] [place] [address] 21822 Chloride [Moles/Vol] 107 mmol/L Normal 98-109 [facility] Comment on above: Performed By: #### C BCA, CMP, 3039-3 #### [facility] ([id number]) [address] [place] [address] 93523 CO2 [Moles/Vol] 20 mmol/L Low 22-32 [facility] Comment on above: Performed By: #### C BCA, CMP, 3039-3 #### [facility] ([id number]) [address] [place] [address] 74866 Creatinine [Mass/Vol] 0.59 mg/dL Normal 0.40-1.00 [facility] Comment on above: Result Comment: METH OD TRACEABLE TO IDMS STANDARD Performed By: #### C HILLARY CANCINO, 3040-3 #### [facility] ([id number]) [address] [place] [address] 08612 eGFR (CKD-EPI) NON-RACE DEPENDENT >90 Normal >59 [facility] Comment on above: Result Comment: Reported eGFR is based on the CKD-EPI 2020 equation that does not use a race coefficient. Performed By: #### C HILLARY CANCINO, 3039-3 #### [facility] ([id number]) [address] [place] [address] 00952 Glucose [Mass/Vol] 91 mg/dL Normal 65-99 [facility] Comment on above: Performed By: #### Shakeel CANCINO CMP, 3 #### [facility] ([id number]) [address] [place] [address] 46586 Potassium [Moles/Vol] 3.9 mmol/L Normal 3.5-5.0 [facility] Comment on above: Performed By: #### Shakeel CANCINO CMP, 3039-3 #### [facility] ([id number]) [address] [place] [address] 05970 Protein [Mass/Vol] 7.1 g/dL Normal 6.0-8.0 [facility] Comment on above: Performed By: #### C HILLARY CANCINO, 0-3 #### [facility] ([id number]) [address] [place] [address] 00721 Sodium [Moles/Vol] 131 mmol/L Low 134-146 [facility] Comment on above: Performed By: #### C HILLARY CANCINO, 0-3 #### [facility] ([id number]) [address] [place] [address] Urea nitrogen [Mass/Vol] 5 mg/dL Normal 5-23 [facility] Comment on above: Performed By: #### C BCA, [facility], 3040-3 #### [facility] ([id number]) [address] [place] [address] LIPASEon 07-11-2023 Lipase [Catalytic activity/Vol] 28 U/L Normal 17-40 [facility] Comment on above: Performed By: #### C BCA, CMP, 3040-3 #### [facility] ([id number]) [address] [place] [address] SARS/FLU A+B/RSV by NAAT/Mol ecularon 07-11-2023 SARS/FLU [...] operators who are performing tests using either [employer] or [employer] systems and is limited to laboratories that [...] repeat. Fact Sheet for Healthcare Providers: https://www.fda.gov/ media/183342/downloa d Fact Sheet for Patients: https://www.fda.gov/ media/421888/downloa d [facility] Comment on above: Performed By: #### C OVFLR #### [facility] ([id number]) [address] [place] [address] 70581 URINE CULTUREon 07-11-2023 Bacteria identified Cx Nom (U) CULTURE RESULTS 10-50,000 ORGANISMS/mL NORMAL UROGENITAL JONNY Normal [facility] Comment on above: Performed By: #### 6 30-4 #### [facility] ([id number]) [address] [place] [address], [address] [place] [address] URN MACROSCOPIC NURon 2023 BILIRUBIN NEHA Negative Normal NEG [facility] Comment on above: Performed By: #### N UM #### [facility] ([id number]) [address] [place] [address] 48301 BLOOD/HGB NEHA Negative Normal NEG [facility] Comment on above: Performed By: #### N UM #### [facility] ([id number]) [address] [place] [address] 66973 GLUCOSE NEHA Negative Normal NEG [facility] Comment on above: Performed By: #### N UM #### [facility] ([id number]) [address] [place] [address] 11319 KETONES NEHA 40 mg/dL Abnormal NEG [facility] Comment on above: Performed By: #### N UM #### [facility] ([id number]) [address] [place] [address] 29426 LEUKOCYTE ESTERASE NEHA Negative Normal NEG [facility] Comment on above: Performed By: #### N UM #### [facility] ([id number]) [address] [place] [address] [place] [address] NITRITE NEHA Negative Normal NEG [facility] Comment on above: Performed By: #### N UM #### [facility] ([id number]) [address] [place] [address] 93452 PH NEHA 8.0 Normal 5.0-8.5 [facility] Comment on above: Performed By: #### N UM #### [facility] ([id number]) [address] [place] [address] 91668 PROTEIN NEHA Trace Abnormal NEG [facility] Comment on above: Performed By: #### N UM #### [facility] ([id number]) [address] [place] [address] 43166 SPECIFIC GRAVITY NEHA 1.020 Normal 1.003-1.035 [facility] Comment on above: Performed By: #### N UM #### [facility] ([id number]) [address] [place] [address] 42816 UROBILINOGEN NEHA 1.0 eu/dL Normal <1.1 [facility] Comment on above: Performed By: #### N UM #### [facility] ([id number]) [address] [place] [address] 77173 URN MACROSCOPIC NURon 2023 BILIRUBIN NEHA Negative Normal NEG [facility] Comment on above: Performed By: #### N UM #### [facility] ([id number]) [address] [place] [address] 88067 BLOOD/HGB NEHA Negative Normal NEG [facility] Comment on above: Performed By: #### N UM #### [facility] ([id number]) [address] [place] [address] 90783 GLUCOSE NEHA Negative Normal NEG [facility] Comment on above: Performed By: #### N UM #### [facility] ([id number]) [address] [place] [address] [place] [address] KETONES NEHA Negative Normal NEG [facility] Comment on above: Performed By: #### N UM #### [facility] ([id number]) [address] [place] [address] 94800 LEUKOCYTE ESTERASE NEHA Trace Abnormal NEG [facility] Comment on above: Performed By: #### N UM #### [facility] ([id number]) [address] [place] [address] [place] [address] NITRITE NEHA Negative Normal NEG [facility] Comment on above: Performed By: #### N UM #### [facility] ([id number]) [address] [place] [address] 57617 PH NEHA 7.5 Normal 5.0-8.5 [facility] Comment on above: Performed By: #### N UM #### [facility] ([id number]) [address] [place] [address] [place] [address] PROTEIN NEHA Negative Normal NEG [facility] Comment on above: Performed By: #### N UM #### [facility] ([id number]) [address] [place] [address] [place] [address] SPECIFIC GRAVITY NEHA 1.025 Normal 1.003-1.035 [facility] Comment on above: Performed By: #### N UM #### [facility] ([id number]) [address] [place] [address] [place] [address] UROBILINOGEN NEHA 0.2 eu/dL Normal <1.1 [facility] Comment on above: Performed By: #### N #### [facility] ([id number]) [address] [place] [address], [place] [address] Coding Summaryon 05-31-2023 Coding Summary HTMLBase 64 MvijhrtcCRi5hBw+PGhl YWQ+VG5FZSPwK82wxFNg eB0gM7JROPjXSapdPQVP AEhFVoLcxaMlKQ0ujYMu ZXJu IC8+PK1pWPEnYlcerJCu p5T2bQY7H65sec0nGXmr yDV4PPIeLgVhcdvhu7ks uLs6ESgpQibmKpLu ZWWajI09SMO3gD40Nf48 mZLkaOHve6wzxQb6QyVu QTDzZBB2mLgvAXzpn6Wm EGFzP06kyZMny2K6 IGNvbGxhcHNlOyBlbXB0 jE4aXAwjdcilo6eyvjpe Kcl7dy81eFQza3L3dFI6 H7NipbD8XMPqeNNk MeybxGQOjD8svjgvn8zo csulZyYmMVCiSUz2NBi2 MPFnpBtaJeRnRN57GGS8 YFQeudKiL8JpBOAn gRdwIaW5p2D2Iz9XW5LJ UoouE3AFXFKNIOixlGC+ JN59tq12R7VmLtmaTjv4 NSDmEDR8eES1rY0x LSLjWEedr2Z3mND0L3Ip ecLxev7ip7dcCXVkSTjp W81emASiw4H6CRMhzTQ8 KIPxcGfvVjVsnD25 Oyc+IVCmcKoej7FjPwho d6vwk8lzrTb5BgzhVEVz nwGhrWloGFA1q6HaFm2z YWIcmRV0kEX9zU2i IzQnYaB0YSlyX055DsIe gFBoFivuT80tX8CzuKI+ AOOxVkb7LXRjpRjgIE8f Z7QwQSVpfgneoUBf bJbwVU9wJUGjuneoIROe wM5mKGIdZ5v2VsGdZpD5 NGluG4JuJGHlhnlkXo12 xD2oEpVbOrK2YNeq X9CmrlN4VRYbnSFeZQtb IVR1E80tu8J3GOJiEIFs BDN6eNH4bO3ytGdadxlu bGVmdDsgdmVydGlj UTosFFszW643RQOurZwo PkNvZGluZyBEYXRlOiAg MDIvMjMvMjAyNDwvdGQ+ FLLgPAE0zIfaRUAc oZYoCPbtFw3ufEnwaRfc EV3cFSVhvzogOXTddY2k AVAybSMbmDogHZ1nJMEc vpmvj091HgDtSDE0 SVUkkXNmV3RnoW4bIuWq NCCeOOXmV2IckLIgRYdy O044VSymDbJ9JDEbabYw W6DxHVZnsXfvEwU8 s3O2Yk8Kx2SqtsxgP4Jr uZFpDeVfMfhaXKq5C0Qu PjwvdHI+DO81EEAbPY80 VEx3GRP2wLlmMVet XLFtU9KsfE9mQhGwWKFr ZGRkOyc+PHRhYmxlIHdp ZHRoPScxMDAlJyBzdHls EQ5jVo3cCELiZTTo tFqjlQTxMjSic7guKDFc THxbCS5dbIbnU7PujCN8 WKIeg2e8Xz66F34nF7Tp dXA+FKQtqYB9ePV5 lV8iSzZxRyF0CRwgO805 AgDsqROoAbcka3avz5vl oNt5PuU2MIJtdkLrkElv DOL6o0WiOd08E42p IHdpZHRoPSIxNSUiIHZh wDfgac3osX1nRj1+PGNv cSF3dFK9oV0eObCqTkC3 PGtzP128ZvItzDSk Cfmjs8yxu3rzcYs3JwXi JRGsejNfpElvJRZ1v9Yb Kx55L9GufInhj6VwEst1 mm59tXThz5Y6fVJ4 N7PoIDJyvkudqCXslJeh NL7nDFGxvwenVEYasE7s XAKsG2h3EtHxGpR1LVaq J5CtbcA0RIVisRJc CFXrqFMXuJ7pztquw3zn cvafCuZwYCEtXBz3FIw1 SIPzqFhiEcFdZDF2ZfY0 XSQ8uIZenT0wzFlv qataqO8qWjc+FTW6cFFn hTQOZM9bRppqqSU+PHRk JIA7mWqfWWnyKHLfjX7e EHLpJ8r8TtEjTiS5 IPibW3OohuT9SKFolZWe VHArqPIQoW9hrybiq0xh slwnLkVfUROcUNh5NZq5 LWFsaWduOiBsZWZ0 CoU4BDC9kENmvZ5tjPwe okfzzA3xXku+QmlydGgg YDU2VSl8U3GxWox3JZOe bWwvLS3gsWNwLNfg Hr8uiFwevRuiUG4vAZPs kyouh705ZzKbb6vtYZCt pLYqELzxOOA1M52uk6T7 WTYzZGOtSNI4vYT1 qW6luJighavclMBxnIsg vhBtiGtpIFvoLFfwO092 UYBmtKoaGyMyWAm6N5Eh Qqi8CTSnnBewPB9h tALoPKexPv9hxPhdyAyy XM2mQQVbvovkx424CjKl w7svXJYfaDXjOTafLXF8 N70ij4M1TYQtOUUs LZT9dPK0kZ8kjZfvudnx bGVmdDsgdmVydGljYWwt YEksW247TQEkoQodQaIt tHq6F2JaDmu2NLAd bIkoWE8tpKYbSVuvTj7k iAfrsVgmZU6fNKZfkmco w190LoXgy1abVIRxeYAn YPtiDOT4F93cr1X2 TDNkIDQgQIJ4nJR1mN9a bGlnbjogbGVmdDsgdmVy bHajDZfvCIokQ348QSOf cDsnPlBhdGllbnQg EMmlXFk1P1PtZredoBY+ AO77NABdEG11iEJdyFSu i6desYc7TjSeHFKhIEY1 iRfeRIxdi0MkSGQj Q33vhNCdt7U5BAGruLjm gFUzHnShqBR0kW6mWVga rsoiv2qdzptfEamwu7tf qm66xS73R18bZHkh ZHRoPSIzMCUiIHZhbGln jc9uiD0rEr7+PGNvbCB3 vYT3bL4pRGMiLcJ4GMzg Y158KyYwtMLgNxyj d3hwl0uzsBp3AsE7PGBb gpRqnFgnBPA9f6HpIy68 K13pXSkdGDRzCYIzAGMq GUEgjJywea8hmM2a Ii8+WCZoaNA5uVU1lG1l NbAhSkJ8OCfoJ820IuYf hAMmFrooI10iL1ZckGS+ YDTiElj6KFFshVbh HV4fnEQwUQwaUt6fJFM5 VmKrLwExWEkuF4CaZDGm iagxashcwTR8VYFjRNBh cV94Mk4cePaaWSKo yPZCrB5baxdsb7pqagzx GtFzNZUeLMc1FGa9XEXy pFjiPwQqPFR9UnW8PFK1 lVQofC1hqRldzrjc mM8xK0JuSIFvjlayYc67 tJ9mBdFfJoS0QJmbZmq+ Y7cRThHHFWjhJ6sOCXWG DXxPKY5CALgexDZ+ CVEqCSU1vRyjRDmoBXRa kF1cZKBzY4d9CzEoJoV6 LWiqJ3QyPARerylbZz58 hW5jQeEnAqO0IHhp Y6MihfQ6CGZvxKTeKJeg MFE0C97rj3Z0GIUjCHBx TJQ6qCZ3tI5lxLikcrcz bGVmdDsgdmVydGlj SEmpTXzaH582YAKihTnd UbR5HcYvMxAiONW8R6De Fxf9MVJarLzzCK6mjPQl KKmgMa5tbAslfAyg UQ4tHLSwgqamPGGqlX0d MGWrdEKanSedQV2yEQTo psvnp963JmUrTXJ0XDPo qKSzV7WhqM1eYxRe VNGjEZZzI8PnhFUhLWsv U324DFjsDsM7RQFprmEs O7PuCZIcuBzxAhN0r4P4 Nd8rPAXCSZNmizug dGQ+OURxWEU9dYomLThk LTVfrB8lBEGtT2v1TiUl LfN1VOdgP8KjHKMwfwqr Na70nF6yUvRxTnW0 UAjyE2XnguO2NCFytEBp OObdYLA0U64md2G3IKOx VMScEQH9rEO5zE5ruCyg bjogbGVmdDsgdmVy nSbuWRccVEqhC436EHNj cDsnPkZFTUFMRTwvdGQ+ RIHsSNF2rVjlBRnmSBYk yG3cOIMcL6q4BkJl FlC7QReiO9IkZCGovgbp Pg93uB5nSdHrCaK9BUpp I2VrzrB3HTPtxRNrSKbf NPE3G81uy8W5GCHe WXUsCPO2oCR4qA6izRxj bjogbGVmdDsgdmVydGlj TJlxSZiqP270TFYbmQam TyJtYFQpNO6jxExm dGQ+AF76hb46U3HkUrut Cnt8VGZeYUK9rEG5tB5j SVXtDXgla5L3nFM0V7Vk ieIujl8la4bzPSCq ECbtK58vcFYsj8V7VQNu iEI3ALVjfXxvYiAwvX07 Oyc+OPRrvXfqp7OoLqwq u0cqu2drgOh7FgLa HCGngsDmfUcrVGB7y5Lz Fe28U45sCDocFGVpHYVe IUAhHGItiDifxk1nhV4n Ii8+RKQjuOO8dDS0 tB1yLqZoQpP5EIruB178 DtMueYZqOsafk4wad9sw aNb8FqGvYCJityJsnYiz DQB5f5BxBl57A9Nd dBefa3PyGde9to92uRDl g7C6wIJ2W5EqQAIqdnai sYIykNrlKX6pHKUcdrjk JCNupT2oLQFrS2f0 CvNuKfF8MDkuP3AxizK5 QFXexFIfQPVutRJKeJ6u rdrsh5nayldyRpGmWFBz SLp2XUb9APAxdDkn ClErXDW3KbC2XMG2jQMr rY8kbLsqgzedaN2wXkx+ PCl1w2pwcOUbPU5mtRD8 AZ85WQ86oZGef6P1 zDL8M6GlMJYqzcupldwy vXZ1LQPeNTMrpW48Iq4m xXroLs9dPAYbWAF8ILQr qHAsO3OprZ8yDmNp KBYvDXZiY6JtwJNwBKwb Y341YZyeStX4IFOmtnNf M0YdOZOzwEafDkJ1l7X8 Uk2DFU60LV86TP54 oQJjz0P5xFX3D4AqNTBl ajzdsnysnHW4UACoBJZb iY60Zz5elAfkEc2aFRAw SEN1IAVekDCpL4Sh wO0tPxDgJTRtBPDqU1Rv iBAoOLtvS054XEcpWpP9 RUJltcUnT3EnIJMoiMxx ZvW9x0K2Ot2YKe84 RN19QI08sKZao0M4iBS3 D9OfQOCrgecmqaxvyOX4 UBGuSIRtyU78Uf9teRhl Lf3dQDWuONS1XLXj gGBtR1NnbP3uSwWwITMk GSKdS0ZbpUDjUQmjY089 FFfaEpN2QLGaiuSpF6Wt QYFogDkjLfZ1i1B2 Kp7ULCplebv8R5OhVgca dHI+DI30SGEbDJ39oWTn bBOvm2fsvPw6CaHmRTMo SKR5lKwmZQifx0Qy ZXI (more content not included)... Normal [facility] C Throaton 05-28-2023 C Throat Ordered by Radha. Normal throat jonny isolated No pathogens isolated [facility] Comment on above: Performed By: #### 1 [id number] #### [facility] (DEFAULT) [address] [place] [address] .QC SARS-CoV-2 (COVID-19)/Fl u/RSV (GeneXpert)on 05-26-2023 Internal Control Pass [facility] Comment on above: Order Comment: Order ed by Radha.[[email or web address]] Performed By: #### 1 [id number] #### [facility] (DEFAULT) [address] [place] [address] COVID/Flu/RSV (GeneXpert)on 05-26-2023 Flu A (GXpert COVFLURSV) Negative Normal Negative [facility] Comment on above: Performed By: #### 1 [id number], [id number] #### [facility] (DEFAULT) [address] [place] [address] Flu B (GXpert COVFLURSV) Negative Normal Negative [facility] Comment on above: Performed By: #### 1 [id number], [id number], [id number] #### [facility] (DEFAULT) [address] [place] [address] RSV (GXpert COVFLURSV) Negative Normal Negative [facility] Comment on above: Performed By: #### 1 [id number], [id number] #### [facility] (DEFAULT) [address] [place] [address] SARS-CoV-2 (COVID-19) RNA MILY+probe Ql (Unsp spec) Negative Normal Negative [facility] Comment on above: Result Comment: Perf ormed by PCR methodology. Performed By: #### 1 [id number], [id number], [id number], [id number] #### [facility] (DEFAULT) [address] [place] [id number] ED Clinical Summaryon 2023 ED Clinical Summary [facility] - Emergency Department [address] [place] [address] ED Clinical Summary PERSON INFORMATION Name: LIA DESAI Age: 22 Years Sex: FEMALE : 2000 MRN: Acct#: Visit Reason: Diarrhea; Fever; Headache; Throat pain - Adult; Body aches; HEADACHE, FEVER, BODY ACHES Arrival: 05/26/2023 17:02:55 Discharge: 05/26/2023 18:57:00 LOS: 000 01:55 Check In: 05/26/2023 17:02:55 Checkout:05/26/2023 18:57:00 Address: [address] [place] [address] PCP: ROBERT MARRERO PROVIDER INFORMATION Provider Role Assigned Unassigned Yassine Maldonado MD ED Provider 05/26/2023 17:04:17 [place] PRIEST Nurse 05/26/2023 17:19:42 VITALS INFORMATION Vital Sign Triage Latest Temperature Tympanic Temperature Temporal Artery Pulse Rate O2 Sat 97 % 97 % Respiratory Rate 16 br/min 16 br/min Blood Pressure /71 mmHg /71 mmHg MEDICAL INFORMATION Medications Given: Allergy Information: Adhesive Bandage; Zithromax PHYSICIAN DOCUMENTATION DISCHARGE INFORMATION: Discharge Disposition: Home Discharge Location: Home PATIENT EDUCATION INFORMATION Instructions: Hypertension, Adult, Wjao-lw-Nnft; Nausea and Vomiting, Adult, Utxm-ey-Lswy Follow-Up: With: Address: When: ROBERT MARRERO [address] [place] [address] Within 3 to 5 days DIAGNOSIS: 1:Nausea vomiting and diarrhea; 2:Elevated blood pressure reading; Diarrhea, unspecified Patient Understands: Yes - Patient/family/careg iver verbalizes understanding of instructions given Comment: Normal [facility] ED Patient Summaryon 024 ED Patient Summary [facility] - Emergency Department [address] [place] [id number] PATIENT DISCHARGE INSTRUCTIONS Patient Information Name: LIA DESAI Age: 22 Years Date of : 2000 Reason For Visit: Diarrhea; Fever; Headache; Throat pain - Adult; Body aches; HEADACHE, FEVER, BODY ACHES Arrival Time: 05/26/2023 17:02:55 Primary Care Physician: ROBERT MARRERO Attending Physician: Yassine Maldonado MD Comment: Visit Diagnosis: Diagnoses This Visit Body aches ([id number]) Diarrhea ([id number]) Diarrhea, unspecified (R19.7) Elevated blood pressure reading (R03.0) Fever ([id number]) Headache ([id number]) Nausea vomiting and diarrhea (R11.2) Throat pain - Adult ([id number]) The Pharmacy at [facility] is open Saturday through Saturday from 9A [...] contact the [facility] [place] 29/10 Crisis Hotline -Text 5VBTB op [phone]. If you received any narcotics, sedation, or [...] With: Address: When: ROBERT MARRERO [address] [place] [place] [id number] Within 3 to 5 days Medication Information: The exam and treatment you received today in the [facility] Emergency Department were for an urgent problem and are not intended as complete care. It is important for you to follow up with a doctor, nurse practitioner, or physician?s activity assistant for ongoing care. If your symptoms [...] so we can reach you if necessary. [facility] Emergency Department has provided you with a complete list of medications post discharge. Please inform your assistant professor surgical technology/provider of your visit and for further instruction [...] pressure an (more content not included)... Normal [facility] Strep Aon 05-26-2023 Strep procedure control Pass Normal [facility] Comment on above: Performed By: #### 1 [id number] #### [facility] (DEFAULT) [address] [place] [address] Streptococcus A Negative Normal Negative [facility] Comment on above: Performed By: #### 1 [id number], [id number] #### [facility] (DEFAULT) [address] [place] [address] Coding Summaryon 05-20-2023 Coding Summary [employer] 64 McdlsmtkJYa0fUm+PGhl YWQ+ZZ8FIXLaF35wzGHl uP0xZ9PTKUvAAghbVGLL ZBmBUbDaqcLxHP0lgRYo ZXJu IC8+CZ8nTTXdZayxsYIa y7X7eUO0C05btq1oCDwo xQX0ROYvYnRbcjics2zs cMo0WSktYvptPcJk GRYuyS56IWE5yE12Gx39 rEXarRFid1ptyZi0SgIs SUEzGLY7sGhcZJfss6Ip WXCjS59ktWWur2V2 IGNvbGxhcHNlOyBlbXB0 uT2rJTnclzujh5gwqsrm Yvp8jp30kRIwq5B5nNI8 Z8NtqcC0GBCwcFYq KipbiOLBuL5pumjdm8dt vsciJaTcUXZoPDg2DLp8 WIMamKcuVbUvPF59GHA0 CTYdpyDrR4VrAQQt pYsdQhH5l3N6Ap1QS7IH TnaeK6CTZHHZKMkbcJO+ JX46pd24D2DdGojqAwh1 TSKkINK7bTL2oA9j NVEjGAbiy7Z4dQX5Y6Tf wyHtxu2si1cmTFWtUZpa C87glGMct2I9YDLsvLX6 DLNrzUijReNcvX20 Oyc+YXCsuCzau0ZnDjsk n4dgy5igqCq6DteiWDBx yyDjoZyuFKD3m2QuRc5a NPSlrBZ0uPK2dW7m UrJcIcK6DUlsS310PwWd pOFoMhimY15jC0QduJK+ QFBvKde8AYZkgDwfDH8g N2WeHQCvlsatfREi nUkcKU9gCWTettthGVTr wO2zLQOfZ7r1BqNaIdG5 XQyxZ1AmCHMnoajbHr19 wQ8oEvUlGtS9ZSfm U0XdepU3GRYbcLFjUYzs HKG3C13xx4A3HAIjMKMi MZH2sTH8hJ3qxKwlayiv bGVmdDsgdmVydGlj SMkuQCfhN005JNHxgUqd PkNvZGluZyBEYXRlOiAg MDIvMTIvMjAyNDwvdGQ+ QOBzECN9zBrvAVJx fIDsCSckVm1nvEpbuNoq CB3xQSKngiteWVOtjF4m JWOnsLWotLobCG3yFVEf uyiap222NqVvVMS2 CAOvdFAqH7EogI5vRqNq FUIdJBXpY0SgmVFeUWfj E444PNmuTeA0HAEstjPk N3GsNEUxwJwnArP9 u1H4Jj0Vt8BounsxF7Gb oVJmPjHrKgbvXHq8L4Dx PjwvdHI+KV74ABEbVM02 HTt4PNT4vBurWIpl RDAbC6AhdJ3wOaJlRIDw ZGRkOyc+PHRhYmxlIHdp ZHRoPScxMDAlJyBzdHls XL8jHk3mIESjHGAc sOladATsHkUqw7uaUBVx VXtcLL7xnBwgG4EqjZC3 PHFbd5i0Zc45A65eW1Hr dXA+BBAmyVF6vVZ5 aN4tZcQwFeN6BIjcW627 MhIdzCPbOsyby8slz3ty vAu5TkV5WENokoKbvXjf ZMI2u3FxWs83L62y IHdpZHRoPSIxNSUiIHZh rWurzh1ckQ2sDz8+PGNv qVR9aTS9gI4uIhMiYfW9 SJlrI539OuMkqNBt Hqzaa2pdb3qvdQl8NyJl BGPjerFwiUziKQG4g5Pm Gc48S7KheTkwy0NmBjo1 jh61kRNhc6U4tEO6 C7DqYGIdiapduRBrhCrk RR7xPVMmqepcYPKxkZ4i YZJlF8h6NvLfVdL5IAgx K1EahoY5FLAvdSSo UJMooOAIoX0euvlan7nn gwvoIxPxMYXcFZp2WEy0 FFTgzOdyJgUnRMJ7NyH4 MKI4qVMgpQ9dyUdb bslyeW1yRtx+TTV9jBNm fBVLNF5bBcaidRP+PHRk DQK8dLopGYznQYAuyD0p MWKmR8e1VtDmYyY2 YLpjV9YacdZ7PVEquERr OPMmxXETgD8hdogeg8ea alflYfIwJWIfWRn0ARa4 LWFsaWduOiBsZWZ0 TgN5EMH7pQOktG5ujOox nqrquH9cTbq+QmlydGgg CPA8WOx5S7SbCzk8NLSz oRrwOO9baNGjFYke Hp5ssTeibGhuFT0wQFTp gujah287YoKhz4waSNEn bJSxFWjxLIT2I21sq8S5 YRVyGFHzUPZ8oXM7 rW7jjOsddoziqRIwjXnh fjZisPlhVUfzPGwtW097 VOMnsWmzElLrMXa2U6Kq Voi2IPSmzNbpTA9b rLBtTVziNm1kiWsfpVuq EH9aWEZjhnfov160OwHn c0ufOKNbeKUkRAzgLHU7 N73be0F6NBZzDVJu ALX8yIE6pD0mpBwzqdgr bGVmdDsgdmVydGljYWwt ZCgpI868UKBanYqnBfIc eRn5S3LoWrt7TGQd xUcrAB5bfMPtCXsiOd8y tLcsbXbuHM3nVDReorvc n043ZuGgh6rqTLCoaCEx WEqsNFL7P16jd9X7 WLFqIUEqFNR2yQM2fM0a bGlnbjogbGVmdDsgdmVy pZsnYPzqLBwuH013LXTq cDsnPlBhdGllbnQg RQiwWGb7Z5WlTpqrwPC+ FZ15RRWgGG05qPGkdOVp v6vqlSq6GmPlSKNsQVX8 oRlsCKbvh9YaCJGh K90llIMdc1S9LGAtbMdw xUEoZhDnhDP5wU8vTHts dlobp9cbhscdXkxph5wz tt42wG41F69pQUsy ZHRoPSIzMCUiIHZhbGln ti4meE3gZt9+PGNvbCB3 xHH1cT9wCPTxVaQ1IGry B563CkMxzFNuTnvr z1ojr9mqmUc2OaN1LCNj wmHmiWxtLNZ3x8TpAo05 L00aPSuiOXUbSMJmCOFa VCEysMlteo8slM6u Ii8+MVAxqMJ2oXG1bK3j GaDiBtR5AUaeD537AfZx rONmNuejG75bS9ZezHD+ XQWfDqu4SLGqqAlz OJ8mpXHaCZxuOo3sJIW4 ExCtCtDsTZjwZ0AnQSVf pwcakvgibKR9TGZnFRVt bM62Zm9unPliSNSn kSDPhS5rgijkw7xamtrr BwOmERYiKDh9WKp0HFJe cAttUdHlQOM9AzC7ANT0 jIVhrC8udGzryphh yR4jI6PjDGQygngmSq59 bQ0dZiBhWrW8EAafVrl+ M6sBMnLTWJkkJ0bTDWGQ AQdUTX8NEYfteWV+ ZKGwPHY4eJcuPFnhORYj nH9lMMAaX6u5AeCxObL6 QAxcG7GnCYWqzlxiHr61 aG7iJqXlXgL9QStb U9RxwyU7DCHgjQQmSGmf XTB5R12mw4D2XXWwWWFb MLZ4nIY8fF6ysMsjaaoj bGVmdDsgdmVydGlj UBnmGHwaH500CMIrlWhf IlC4KdYlNoOhUGO7F6Xp Tlg8HKJunXefRF7azNFx WHvmSi8sbQhdvAxj GJ2lPFKkfekuNCNbkN2h GJTgoJSbvEubMZ3tDBFc mqfgj175ZnCjUWP2WTUs cUEaN4NtbY1sVgIs NVBpGJPoU9QmwQPrCYdu C195RWvsUvK9OAGrmxIa W1BjCJWlfHxlBkH9c0B9 Wk3rGDLLWZMlcjnt dGQ+XLJqNPY0cQntWFjv URQnfA6tWRHwD4c1AjNh OyV2OQocO2EmCNGhjzvb Xe94nQ7wVrEfOgZ1 HEgtF6WgvbF4OWPvmZXb RQvoWRI8Q39lx5G8IHMf ESOdHNI4jBV8mL3nkHbh bjogbGVmdDsgdmVy yUceWBohOAyrN832MHBl cDsnPkZFTUFMRTwvdGQ+ ARZcYGK6gNumGKpbGCNf vP8dJUCbQ9i9DaBo JlS7ZHxiY1ZjQDBkguuk Ox78dE4qWxCtHuR8XIdu C3KzarC8WSRewPPfRLbd TAW1Z62mb8W4XYOm GFRxOWS5qWB6bV3xvRav bjogbGVmdDsgdmVydGlj SCdlAApdK247GWDftPez UgKkNVSrUQ7bdGaf dGQ+XE10wz02N9DjQgbx Bxk6EESmZEH6bAB9cE9d UTDhFUtii3T1kRT3T4Bm jkWmfp4wp2tiKSNi LXcxU56diSCwo5O1MRVr iRR3CUHqvOkoJcErjM30 Oyc+JMAnxBhmx1UaFqty v3siy7vucRk5TdXc IYCjaoOiyZsbEJB4b4Ww Km16I49tRItwMPCgGPKj AGDlINDywSmgbc9nhJ6c Ii8+TZXkfPM8rZH2 tC2yQzQcGrU9MKsdW251 ZrKgcUJyFnvcx8ibi4qr oSy6LdItZTYuizYcsEkx DZF9u2LbVc95S6Wo mPjji6LbJjs4tj67wQVu l7U8mFD2Q0DiVNAhusch lNJqaDyaEY3pIRAflfjf GOUhzG8tWOApJ6v7 XwLvEgL7VBnrX4ThglH7 ZXSsfNZoGJUllFNKuG9g unhyl6sciuqdEbLxRNHb EOu1LJp7KEMgnSet RjJbLVW6NeX2VKP4dDUa dI1hdTxxeepanS4lGps+ VNd4l5ukmXMsHZ3ejVX4 OB03AE50aSMgd2G8 tUD7R2YdSIWtkrgbwwvu lMZ0XXOrJLKlqV95Yz3c oDuoPb8cMYBvGHJ3QBGj oNAnQ1LwyX1hYmOj IDMbCEYpV1PcpIQxEGea P267ZYzzQsZ5ORUogmYr J4OiDTSvoZggFgM2y6L0 Gh2RQW17PW13PO74 gEUfp7H5ySI1N3UqWTUv ciksrvobtVG3ZAYkJODa vT91Hj4nuVqwXa0gAEOj VRX3MIXfeKTkW8Di zF8lKvQoMFUtVHPzN5Ut vXOiAFcyD423RMcbQmT0 EINjiuVyF9KtPGKxgGme TbU1y9X4Sl6FWu18 JX97SY00qAXot3Q2yEN9 L7VmCIXgpxmqciogbHC8 GPDcASLxwT82Gc4miVse Eh5nINTqJML2SGYk pKIfG9TiyS5fJhLqDVHh OHVkI4OphRTlMSaeB086 SKxrXvY5EGQjpmBoT3Wz GFAnbZicHdE2t8T9 Mg1LORfpovt9F9FjXbgu dHI+IG64JSGaLN40zAPl xVJxp7bocEj9VkCpFATi EHR9dGvnPWrsk4Gm ZXI (more content not included)... Normal [facility] C Urineon 05-18-2023 C Urine Urine Culture ordered as a result of parameters set on specific urine dip and urine microsopic results. 15,000 cfu/ml Corynebacterium species (DIPTHEROIDS) Normal skin jonny isolated Normal [facility] Comment on above: Performed By: #### 5 [id number], [id number], [id number] ####[facility] (DEFAULT)[address] [place] [address] ALL CBC WITH AUTO DIFFon BASOPHILS ABSOLUTE [...] [facility] EO # 0.1 [facility] PLT 211 [facility] RBC 4.30 [facility] WBC 9.3 [facility] .Auto Diff 1on 05-15-2023 Auto [place] % 8 % Normal 1-12 [facility] Comment on above: Performed By: #### 1 [id number], [id number], [id number], [id number] #### [facility] (DEFAULT) [address] [place] [address] 19779 Baso Abs# 0.1 x10 Normal 0.0-0.2 [facility] Comment on above: Performed By: #### 1 [id number], [id number], [id number], [id number] #### [facility] (DEFAULT) [address] [place] [address] 82092 Basophils/100 WBC (Bld) 1.0 % Normal 0.2-2.0 [facility] Comment on above: Performed By: #### 1 [id number], 51064390, 8032339, [id number] #### [facility] (DEFAULT) [address] [place] [address] 66904 Eos Abs# 0.0 x10 Normal 0.0-0.4 [facility] Comment on above: Performed By: #### 1 [id number], 06585710, 6761533, [id number] #### [facility] (DEFAULT) [address] [place] [address] 59350 Eosinophils/100 WBC (Bld) 0.2 % Low 0.9-4.0 [facility] Comment on above: Performed By: #### 1 [id number], [id number], 6415671, [id number] #### [facility] (DEFAULT) [address] [place] [address] 28194 Lymph Abs# 2.6 x10 Normal 1.3-2.9 [facility] Comment on above: Performed By: #### 1 [id number], 31669615, 8941927, [id number] #### [facility] (DEFAULT) [address] [place] [address] 79252 Lymphocytes/100 WBC (Bld) 25 % Normal 14-48 [facility] Comment on above: Performed By: #### 1 [id number], 27368397, 5054375, [id number] #### [facility] (DEFAULT) [address] [place] [address] [place] Abs# 0.9 x10 High 0.0-0.8 [facility] Comment on above: Performed By: #### 1 [id number], 39891584, 7976016, [id number] #### [facility] (DEFAULT) [address] [place] [address] Neut Abs# 6.6 x10 Normal 1.5-9.2 [facility] Comment on above: Performed By: #### 1 [id number], [id number], 6495518, [id number] #### [facility] (DEFAULT) [address] [place] [address] Neutrophils/100 WBC (Bld) 65 % Normal 44-88 [facility] Comment on above: Performed By: #### 1 [id number], 80825262, 4134910, [id number] #### [facility] (DEFAULT) [address] [place] [address] Standardon 05-15-2023 eGFR Non AA >60 Invalid Interpretation Code [facility] Comment on above: Performed By: #### 1 [id number], 74807919, 6149812, [id number] #### [facility] (DEFAULT) [address] [place] [address] eGFR AA >60 Invalid Interpretation Code [facility] Comment on above: Performed By: #### 1 [id number], 25782112, 0420488, [id number] #### [facility] (DEFAULT) [address] [place] [address] Anion gap [Moles/Vol] 15.2 mmol/L Normal 5.0-19.0 [facility] Comment on above: Performed By: #### 1 [id number], 13024298, 8040994, [id number] #### [facility] (DEFAULT) [address] [place] [address] 23039 Calcium [Mass/Vol] 9.2 mg/dL Normal 8.9-10.3 [facility] Comment on above: Performed By: #### 1 [id number], 66435554, 3988602, [id number] #### [facility] (DEFAULT) [address] [place] [address] 04919 Chloride [Moles/Vol] 106 mmol/L Normal 101-111 [facility] Comment on above: Performed By: #### 1 [id number], 27015525, 3803225, [id number] #### [facility] (DEFAULT) [address] [place] [address] 98194 CO2 [Moles/Vol] 17 mmol/L Low 21-32 [facility] Comment on above: Performed By: #### 1 [id number], 52564524, 6533045, [id number] #### [facility] (DEFAULT) [address] [place] [address] 58060 Creatinine [Mass/Vol] 0.55 mg/dL Low 0.60-1.30 [facility] Comment on above: Performed By: #### 1 [id number], 72150910, 6216453, [id number] #### [facility] (DEFAULT) [address] [place] [address] 28186 Glucose [Mass/Vol] 75.0 mg/dL Normal 74.0-118.0 [facility] Comment on above: Performed By: #### 1 [id number], 27671222, 9717900, [id number] #### [facility] (DEFAULT) [address] [place] [address] 57194 Osmolality 266 mOsm/L Invalid Interpretation Code [facility] Comment on above: Performed By: #### 1 [id number], 22373038, 2494989, [id number] #### [facility] (DEFAULT) [address] [place] [address] 90114 Potassium [Moles/Vol] 4.2 mmol/L Normal 3.6-5.1 [facility] Comment on above: Performed By: #### 1 [id number], 21642468, 8344076, [id number] #### [facility] (DEFAULT) [address] [place] [address] Sodium [Moles/Vol] 134.0 mmol/L Low 136.0-144.0 [facility] Comment on above: Performed By: #### 1 [id number], 70431426, 2030484, [id number] #### [facility] (DEFAULT) [address] [place] [address] Urea nitrogen [Mass/Vol] 9 mg/dL Normal 8-26 [facility] Comment on above: Performed By: #### 1 [id number], 55271520, 5131677, [id number] #### [facility] (DEFAULT) [address] [place] [address] Urea nitrogen/Creatinine [Mass ratio] 16.3 mg/mg High 4.6-16.2 [facility] Comment on above: Performed By: #### 1 [id number], 39905835, 7766919, [id number] #### [facility] (DEFAULT) [address] [place] [address] Breakpoint Chem Normal [facility] Comment on above: Performed By: #### 1 [id number], 26698647, 7020341, [id number] #### [facility] (DEFAULT) [address] [place] [address] CBC w/ Auto Diffon 4 Erythrocyte distribution width (RBC) [Ratio] 12.9 % Normal 11.5-15.0 [facility] Comment on above: Performed By: #### 1 [id number], 45573966, 4521228, [id number] #### [facility] (DEFAULT) [address] [place] [address] Hematocrit (Bld) [Volume fraction] 39.2 % Normal 33.7-40.4 [facility] Comment on above: Performed By: #### 1 [id number], 13742622, 6875367, [id number] #### [facility] (DEFAULT) [address] [place] [address] Hemoglobin (Bld) [Mass/Vol] 13.4 g/dL Normal 11.3-15.9 [facility] Comment on above: Performed By: #### 1 [id number], 64675610, 9013021, [id number] #### [facility] (DEFAULT) [address] [place] [address] Man Diff? RBC Morph Only Invalid Interpretation Code [facility] Comment on above: Performed By: #### 1 [id number], 43679200, 1189349, [id number] #### [facility] (DEFAULT) [address] [place] [address] MCH (RBC) [Entitic mass] 29 pg Normal 24-34 [facility] Comment on above: Performed By: #### 1 [id number], 72329130, 3912957, [id number] #### [facility] (DEFAULT) [address] [place] [address] MCHC (RBC) [Mass/Vol] 34 g/dL Normal 26-37 [facility] Comment on above: Performed By: #### 1 [id number], 57930409, 1236565, [id number] #### [facility] (DEFAULT) [address] [place] [address] MCV (RBC) [Entitic vol] 84 fL Normal 81-100 [facility] Comment on above: Performed By: #### 1 [id number], 30409649, 1693258, [id number] #### [facility] (DEFAULT) [address] [place] [address] 53953 Platelet 228 x10 Normal 138-427 [facility] Comment on above: Performed By: #### 1 [id number], 06650896, 2989976, [id number] #### [facility] (DEFAULT) [address] [place] [address] 16405 Platelet mean volume (Bld) [Entitic vol] 8.7 fL Normal 6.3-10.2 [facility] Comment on above: Performed By: #### 1 [id number], 32747082, 7687641, [id number] #### [facility] (DEFAULT) [address] [place] [address] 00019 RBC 4.66 x10 Normal 3.70-5.30 [facility] Comment on above: Performed By: #### 1 [id number], 17201974, 2044443, [id number] #### [facility] (DEFAULT) [address] [place] [address] 26431 WBC 10.1 x10 Normal 3.5-10.5 [facility] Comment on above: Performed By: #### 1 [id number], 15235063, 1904031, [id number] #### [facility] (DEFAULT) [address] [place], [place] [id number] ED Clinical Summaryon 2023 ED Clinical Summary [facility] - Emergency Department [address] [place] [address] ED Clinical Summary PERSON INFORMATION Name: LIA DESAI Age: 22 Years Sex: FEMALE : 2000 MRN: Acct#: Visit Reason: Vomiting - ; 10 WEEKS , NAUSEA, VOMITING Arrival: 05/15/2023 13:59:38 Discharge: 05/15/2023 19:41:00 LOS: 000 05:42 Check In: 05/15/2023 13:59:38 Checkout:05/15/2023 19:41:00 Address: [address] [place] [address] PCP: ROBERT MARRERO PROVIDER INFORMATION Provider Role Assigned Unassigned Joelle Nava PRIEST Nurse 05/15/2023 15:05:55 Mamie Moore MD ED Provider 05/15/2023 15:56:16 Chrissy Diego PRIEST Nurse 05/15/2023 19:19:53 VITALS INFORMATION Vital Sign [...] With: Address: When: ROBERT MARRERO [address] [id number] Business (1) Within 3 to 5 days With: Address: When: Follow up with specialist Within 3 to 5 days Comments: Your CONTRACT ADMINISTRATOR DIAGNOSIS: 1:Hyperemesis of Patient Understands: Yes - Patient/family/careg iver verbalizes understanding of instructions given Comment: [facility] ED Note-Nursingon 05-15-2023 ED Note-Nursing PT. C/O nausea and vomiting. PT. is 10 weeks with her first child. PT. has prescribed Zofran but has been out of it for 1 week. Pt. is scheduled for a Zofran pump. Pt. states that she has not been able to keep any foods or fluids down. Pt. is A&O X4. PT. has a steady gait. [facility] ED Patient Summaryon 024 ED Patient Summary [facility] - Emergency Department [address] [place] [address] [id number] PATIENT DISCHARGE INSTRUCTIONS Patient Information Name: LIA DESAI Age: 22 Years Date of : 2000 Reason For Visit: Vomiting - ; 10 WEEKS , NAUSEA, VOMITING Arrival Time: 05/15/2023 13:59:38 Primary Care Physician: ROBERT MARRERO Attending Physician: Mamie Moore MD Comment: Visit Diagnosis: Diagnoses This Visit Hyperemesis of (O21.0) Vomiting - ([id number]) The Pharmacy at [facility] is open Saturday through Saturday from 9A [...] alcohol and/or drug addiction problems; contact the [facility] 29/10 Crisis Hotline -Text 4HBLI to 272115. If you received any narcotics, sedation, or [...] legal documents With: Address: When: ROBERT MARRERO [address] [place] [address] Business (1) Within 3 to 5 days With: Address: When: Follow up with specialist Within 3 to 5 days Comments: Your CONTRACT ADMINISTRATOR Medication Information: The exam and treatment you received today in the [facility] Emergency Department were for an urgent problem and are not intended as complete care. It is important for you to follow up with a doctor, nurse practitioner, or physician?s activity assistant for ongoing care. If your symptoms [...] so we can reach you if necessary. [facility] Emergency Department has provided you with a complete list of medications post discharge. Please inform your assistant professor surgical technology/provider of your visit and for further instruction on these medications. Any specific questions regarding your chronic medications and dosages should be discussed with your primary care physician(s) and/or pharmacist. Medications That Were Updated - Follow Below Instructions [facility] [id number] [place], [place] [id number], [phone] Updated: ondansetron (ondansetron 4 mg oral tablet, [...] drinking abad (more content not included)... Normal [facility] Morphologyon 05-15-2023 RBC morphology finding Nom (Bld) Normal Normal [facility] Comment on above: Order Comment: Order added by Discern. Result Comment: some platelet clumping observed Performed By: #### 1 [id number], [id number], [id number], [id number] #### [facility] (DEFAULT) [address] [place] [address] UA [id number] 05-15-2023 UA Amorph. 1+ [facility] Comment on above: Order Comment: Urina lysis Microscopic order added on by Discern Expert Rules system. Performed By: #### 5 [id number], [id number], [id number] ####[facility] (DEFAULT)[address] [place] [address] UA Bacteria 1+ [facility] Comment on above: Order Comment: Urina lysis Microscopic order added on by Discern Expert Rules system. Performed By: #### 5 [id number], [id number], [id number] ####[facility] (DEFAULT)[address] [place] [address] UA Mucous 1+ [facility] Comment on above: Order Comment: Urina lysis Microscopic order added on by Discern Expert Rules system. Performed By: #### 5 [id number], [id number], [id number] ####[facility] (DEFAULT)[address] [place] [address] UA RBC 3-5 [facility] Comment on above: Order Comment: Urina lysis Microscopic order added on by [employer] Expert Rules system. Performed By: #### 5 [id number], [id number], [id number] ####[facility] (DEFAULT)[address] [place] [address] UA Squam Epi Moderate [facility] Comment on above: Order Comment: Urina lysis Microscopic order added on by Discern Expert Rules system. Performed By: #### 5 [id number], [id number], [id number] ####[facility] (DEFAULT)[address] [place] [address] UA WBC 5-10 [facility] Comment on above: Order Comment: Urina lysis Microscopic order added on by Discern Expert Rules system. Performed By: #### 5 [id number], [id number], [id number] ####[facility] (DEFAULT)[address] [place] [address] UA w Culture if Ind Standard on 05-15-2023 Breakpoint UA [facility] Comment on above: Performed By: #### 5 [id number], [id number], [id number] ####[facility] (DEFAULT)[address] [place] [address] Color (U) Yellow Normal [facility] Comment on above: Performed By: #### 5 [id number], [id number], [id number] ####[facility] (DEFAULT)[address] [place] [address] Culture? Indicated Invalid Interpretation Code [facility] Comment on above: Result Comment: Resu lt created by rule GL_MAGR_ADD_UA_CULT Result created by rule GL_MAGR_ADD_UA_CULT Result created by rule GL_MAGR_ADD_UA_CULT1 Result created by rule GL_MAGR_ADD_UA_CULT Performed By: #### 5 [id number], [id number], [id number] ####[facility] (DEFAULT)[address] [place] [address] Glucose (U) [Mass/Vol] Negative [facility] Comment on above: Performed By: #### 5 [id number], [id number], [id number] ####[facility] (DEFAULT)[address] [place] [address] Ketones Ql (U) >=80 Normal [facility] Comment on above: Performed By: #### 5 [id number], [id number], [id number] ####[facility] (DEFAULT)[address] [place] [address] Micro? Indicated Invalid Interpretation Code [facility] Comment on above: Result Comment: Resu lt created by rule GL_MAGR_ADD_UA_MICRO Performed By: #### 5 [id number], [id number], [id number] ####[facility] (DEFAULT)[address] [place] [address] UA Bilirubin MODERATE Abnormal [facility] Comment on above: Performed By: #### 5 [id number], [id number], [id number] ####[facility] (DEFAULT)[address] [place] [address] UA Blood Negative Normal NEGATIVE [facility] Comment on above: Performed By: #### 5 [id number], [id number], [id number] ####[facility] (DEFAULT)[address] [place] [address] UA Clarity SL CLOUDY Abnormal CLEAR [facility] Comment on above: Performed By: #### 5 [id number], [id number], [id number] ####[facility] (DEFAULT)[address] [place] [address] UA Leuk Est Negative Normal NEGATIVE [facility] Comment on above: Performed By: #### 5 [id number], [id number], [id number] ####[facility] (DEFAULT)[address] [place] [address] UA Nitrite Negative Normal NEGATIVE [facility] Comment on above: Performed By: #### 5 [id number], [id number], [id number] ####[facility] (DEFAULT)[address] [place] [address]391 UA pH 6.5 Normal 5-8 [facility] Comment on above: Performed By: #### 5 [id number], [id number], [id number] ####[facility] (DEFAULT)[address] [place] [address] 94[address] UA Protein 30 Abnormal NEGATIVE [facility] Comment on above: Performed By: #### 5 [id number], [id number], [id number] ####[facility] (DEFAULT)[address] [place] [address] UA Spec Grav >=1.030 Normal 1.001-1.035 [facility] Comment on above: Performed By: #### 5 [id number], [id number], [id number] ####[facility] (DEFAULT)[address] [place] [address] UA Urobilinogen 1.0 mg/dL Normal 0.2-1.0 [facility] Comment on above: Performed By: #### 5 [id number], [id number], [id number] ####[facility] (DEFAULT)[address] [place] [address] Urine Source Clean Catch Normal [facility] Comment on above: Performed By: #### 5 [id number], [id number], [id number] ####[facility] (DEFAULT)[address] [place] [address] hCG Quantitativeon hCG Quantitative 858968.0 mIU/mL High 0.0-0.6 [facility] Comment on above: Performed By: #### 1 [id number], [id number], [id number] #### [facility] (DEFAULT) [address] [place] [address] Coding Summaryon 05-02-2023 Coding Summary [employer] 64 CnkhbnmeKOg2yEg+PGhl YWQ+PE1EOJOkX92lrDBe sG0sF4VTCVpTPpcvYWKR UAiDLaJeikNrQK5qtJOo ZXJu IC8+LO8jHESuNcgdeRZe m3Y9aPP5V09sqv2dPJga nDZ5JXPtHkBspaqri6sn sVu3YXqwFhblVvEl WHMgeR12YHT2sM46Kz35 jYJjuWJcp1rohEk8OwOs QPHzPWD6dIetHCzqr6Gd AGDmO11rbLDsc8Q5 IGNvbGxhcHNlOyBlbXB0 eA1sPZxhjxkyp8kyovwu Djl5rd65fEWss8N4uXA1 R0CuecI0AZFgcCEe EzxelQYGbB2ufsjhz3ed eumuJmQzJRNbDSj5CWs8 MCGoeZutRmWcET51ULU3 ZUZoaiLhD8JmMPMc vAuzDeT9b7V9Sj4SJ0VI HuemF1ASXNFAMRvqvAX+ IZ29ls64X5QjYgewWlz6 XYFhOZI1qES2nP2v MGYfYXfyt0E2qAX3D1Zi ggMejo0dl1cyTRAeYZru O27mdKEza3U1NBHrsRA1 MYIzmKsuZtYhhQ22 Oyc+LWSwyVniz5XoHttm z3zbi9tgsQg6YapzTJWp kcUqcHsgPTT3b3LuUx1c FHUjeGC7tHP2dS3f BzBsUmX9UZkbE010ZhMk mHFeOevjD33pX5EcjCP+ YRCgQjj6SKPcsPbnWC9z E6CyETUxgibggOCp vYwpLY9vXJHcspbsNIYw yF0mKOSyN1w1LcRtInY2 FQxvF5BoMPCygsjkFh76 mE6zIaWiFaX1GSbt G9FyjfJ0NCXibNYyUNca TBZ3N41ih1B2ARBzQIRl UHX0rBV5jT8dxAomkqid bGVmdDsgdmVydGlj LTmoHQlqU817XZMseYnm PkNvZGluZyBEYXRlOiAg MDEvMjUvMjAyNDwvdGQ+ UNEcLSY9mJynJGUx jFKeHCtzGz1dzIfajJwv BW3gPVZkdnlkNLTjyE2f VWPeaDInyNqhEE1wMMWa pansh464PfMbPOG1 AYQitUTdP0NsuR1eGyJk CBTgKLIsD9GgyFPlQQfr N764OOutHmK2PYCdajVd C7MgKSMpxWzqXbB1 c1I1Ix7Zb8ZuxbfnW1Bw lGGoHvBsAmrsSFa4Q1Xk PjwvdHI+DH48BEShHD78 TRz4WQP2dEblZIsh SAOwU4XokU5rJkVnMOWt ZGRkOyc+PHRhYmxlIHdp ZHRoPScxMDAlJyBzdHls PS3iLs2wMPXgXBCi gRoerNFdToUxt7igLJBd HCepIH5dcLttX1OudOS0 RBVyz8a1Dl17G73oH3Cd dXA+HQOpyNS0jDS8 kG8tQwWyYeP1SCotW499 BiEgtLBnRdhrz9dxn5ge lBs4WpP7WSUnngBzmBhx TLG6q0CmKa24L61p IHdpZHRoPSIxNSUiIHZh nVsqmj4cpQ8bSq4+PGNv qZV2rVQ2iV6tVvSaXpP6 FNfcH240PaZsfDZa Jofrg9nhw2lhoXl5TaHm ZFQqgmXyeVqdJMK7a3Gh Pv50J8JofYlgc3InNdg9 ih14wRLju6A4vIY1 L3AvGDKsgbqjyHMnzBqu BA0pKHBzhvmbEWUabJ2e IGBvJ1v1DvHtXwU9CXas A8MjunV0OIQkfAPk NIJvgCFVhP6cgiamn8ud yohvLmAwOVTgMEi8ZWv4 UVKvaBhtPoPpADC7EdZ6 EGV5nIYnjD1jmFug oonjuM7cBwj+ALM7tDGi nAFBOD0uJssqfLY+PHRk TUK1sCibXEvzMSKcwH5d REToU4r5JrCcLvP3 RAnhH6IuglO0TPOrnUXw KLZswQXIfV4dpqvuz4ry bprtElZjITNbFWv2BNl6 LWFsaWduOiBsZWZ0 VjJ9CFT8zTFkaD3ovObv whkzgB5pKxy+QmlydGgg CXP5RBo5X7GxVod1EJJw oAgyRM4heVAbRHrx Yt0wpRrerWvlSX4zAQSs twrbo647AuTfb7jfWUYm nFXxUJjbBMI6R21bk5R7 WNWeHUTgRXH0pJJ2 oG8imWspcroqwZZqhLdp gjFdoStpXZoeUJifB986 EKKpvDcbLbGqVWf5D8Lg Ohk1DEGszEcaUB1f lGVwQDlqSp0fzSapdIpy JR9nOCIubaxlm731DsDo p4jwELTltXVeJBcrEMP9 D80zo8C5XKFiEPZw BGS1tSM1mM5qxKrcgsyp bGVmdDsgdmVydGljYWwt JWdnE833AJRhuYxaCdFk hIv4V2ZpLik8XTQj nYddTS8nzQQwXAgbSd4a zJecqVawLW1xNGHprkxa f755ZzPiq6ngLGBxbZOg RQnxCRG6B31wg1F4 CUVdJJKoVKR3yUK6wY5r bGlnbjogbGVmdDsgdmVy pGicYYnkALgfU571BLEr cDsnPlBhdGllbnQg WZqxYAb2I7BvKqnlcML+ PV47RPRpGC38mUZmnNHn c6owpFx6FkLkXJNbFYJ0 lNpcBWtfl8AxYBMh X59myQClo5P7ZUJpkLuz eGSnFxPejAM4vN7cYYyf bjznc7pqwtmbJjefc0qz lr45pF19A52dACxc ZHRoPSIzMCUiIHZhbGln nw6nkS9eAk4+PGNvbCB3 bPQ2cD7aCPBwKdL8ZKhj Y117FbRnaSQcCwhz a9ikf5hapZi2MaL1YEEw xuMcbOjaTBI1g3CiYd72 A06nLOwrSDHpDJWaYSTr AQUmrJbraj9mhL3h Ii8+RNDjwWS7jCY8wE6z BuKbRfE9FCqkW472SfPv lRYpMdljC56lD1KduJJ+ EENxSeg1WOIdzVzh CY2bqAAzXEplDu4wTXZ8 FhEySzEgVKgvT2ZsZMPm yldlunmggBW3MQLxZWZf cW38Nt1tpLinZRMi fXFDsU1nbjekx8yxwgla JkSxRDAiNFp8MGz8UORn aGxaBkPjXKT7OjL1AIE3 aNUvaQ0rjIykxuuh xY8oO7XbAVDjcfyyQe78 pR3sBrExPcJ2EMctNjp+ G7gSWrBQETysN0uOYBPS VCnDMB0GOQqltSP+ BISxLXV8vUyxYEtrXVRu zJ4hCXZlI9l1VvIoWrS2 FEasV4GzOENibyjuWu59 uM9bMlMuAwJ4YDuu E0GygrM5MQOiaWDcWCaw ZJK4R46ds2D3PJOsOTLv KSP3cVZ2bP5pgDyzuexl bGVmdDsgdmVydGlj MInoVHymQ899FFTzjMie WqD2ViSnOaZqVPP2T8Vi Jic9TMHoxFmvSL5erVMp CNghNu4ohCmcfWdu LI7fXAChmfeuJVBhyI9n XBTltDRhhQgxTS2aCZKv wkblv446MsZwXQY9PPGj vDHtH7WoiV0uZhCe FQOcYLKyS5DfyZPyLKml H600MAnpMvM9UOGddcKb B8DjZHNadGfuJuU6i0Q6 Gx4iYKQXGXEmhsah dGQ+MXGuLRU8hAbzNWxe PCPvpW2iNKYsD5e0GeQb QwV9IBgdD8BoYXGuweus El30oV0eIiMhPaU2 OQggZ4JdwuM1IEQuxLQu HLddFGA5W20aq8L0NBYw HMEmTIK1sCJ3qB5grRxp bjogbGVmdDsgdmVy mTvgRVxpIAhdG965ISLe cDsnPkZFTUFMRTwvdGQ+ TOXiPWD6rUprWEuyUCAg zK5jMJSkL9q0ScVx WzH3BRrtL9IiRIFuuazl Ob03rJ0hYaXgBoB6UBba C2DmmkE0HDSrbGYzVQmv NTC3U14ci6D6YXYh NIXaQIG1rBM9bX3vkOik bjogbGVmdDsgdmVydGlj EWfgPYqyG265PWAhhIef QwYlCAFvMG5ipCsp dGQ+NT87le30V6FuLwnv Lfz3JKOjWLC4iPU5dO0w CZZjWUfsg0E5lOU2L0Mn grAugc4lm8tdLMIf QEzcU54vwALwx8C2KWUd iYC2VQWqjLvbUoRdsI92 Oyc+LNHchOafg0SiEhxd r6niw1mqsGb2MaIg PADztpRliVzuYQK3r6Jw Ry95E63eSJehSSOuQLCn BJZwOBLfsHxqco6cdA1t Ii8+CCHnuUR3tWB0 uR7hIqZyXvS5PDbiN381 EfDrhDDdYiesc6cru4ut vVp6XxCrSHEcjlXqtZxy SBH2d0DxGl63P1Ew fFfnt3FlCzk5jt26fLVu h0W2hUK8C4CzXFIwxvfk lJFzxZffQL5yQQJmrbhy RRXpfJ3wEGFsL2s9 GpZiJyF3JQmqS5PowyQ0 LIXraXGgAEUnjXMVmN8b bofgs5oymsacTcAkMCJy OXe4HSm3UFZqgSbk ZrNcNBV5GuJ8QTM2iWQq hX5bkQfuiabwkU7xCtj+ KQk7g9egoCHfEY7qkWU4 PB20JP55lILgp7Y6 cQT1O4CyWSVponprehlh zEW9NILjFIQcdN83Gq3m rDelQr4rSZIhQLO8OFAa mUUgE8YzuY4nYbNp VFTtEVPfC9GbvBLaWEst E345ESgcQjO8FTIexmOy M4EyVKBfvLaxOuQ8u2E9 Yl2FUF15BV89PJ45 lRSnt5E2iRW2P2FfBWBw zpyeyatwkZI6KFXgAYEb zU87An3mbRakZg2pSLXy MRB1UDRyhWPiH2Zq lE0uPlMzIDLpNCZgT9Zf aPTaDFlrB320MPjrVhL7 HRKxjmQsZ3RsQNRzfKzl YqF6i9U6Rv7FVe97 SN77SR08pLFxu2W6fXT2 P6LnHAFlasyoquvgtSZ0 UQMsWVWzfC85Wy0wqPsl Eh7iMYVxYSH0VOZy uFLkY0BygA6eZmKrLPBq NICyA8JqrJTjHIdsX952 JXanNyT2VRKvwcCoG4Bw QVFiyLclLxH2r7Y0 Tf4OLAvdrzq0Q8AbDfbg dHI+QD52GOEwZM20oNOw xBUlz5hqhXg6ZlGlSLNa IZW7hLbmFTnuk6Yw ZXI (more content not included)... [facility] Coding Summaryon 05-01-2023 Coding Summary HTMLBase 64 OopajkajPIs7bBb+PGhl YWQ+DM6PNJQqP99tiOAe oF4pV7UBQHeQHlsfMOAW RKlNAhTcvrYmNH0wcAEg ZXJu IC8+VX7iZUDpUmlteEQw x7A3yWM2K51bft9cWInu xOY8KCTjGoIpsapfk9ok bXe9QMioGxznZrWb ORTvzF64MMK2pS51Tm82 eNAfrYSym1rgeGs1EcGb YTYdSLJ0bVhqIIajs4Jl WDXiV09qrSXqm8R6 IGNvbGxhcHNlOyBlbXB0 bV8mMTsquxjos0psxddz Skm3rp18sFAio5Y2aTS8 B8IlqjB5MUKpjAEy NkieqTOPjS4wxgknx1vp eyvgFlBsYBFsCMk8RRu0 TUSooNngIpMhPF09KWG0 IHMukfWfE9StYTHm eGxaFmY8o1Z1Vp6XL4GU AbwdU8ZUXJMGMHqnrBX+ BF16gi81J6BzTyzoQma8 WOUyZEN1bEE5iN5d HBHxKNigq6X3vVJ2G2Uo cgHbdw6fj5wqORRbOKls H15hrHQpu0G3DWHvxRI2 GZTeeIyuEiBscN21 Oyc+EAJeaIrxh2ZeKdul g5azk5tldIq7WtreHQIp pkCzwZihRZA8j6PcCx7c YYFteHH9eEP8nS6p TnMfQlI7YXbmF904VbMu nJFvPcnkK63eE1EkeKZ+ CWQgVdj2YOGywCnlVX9y G9VsOIFfvhcdeEAi jQaxMD4eEUKjhwpdHOBo nL1gEHPaE4d6GkLjDaE1 MWibF8BlANMacstxTr23 bS6xLvXlSwY7AUlw Y1SzxyZ5WUCjkMBmHTjr SUT1Q99md5Y5MTArUOCv EXY4vVA2sA9vlBjgqpgk bGVmdDsgdmVydGlj JFolQHysG920VSRwvWfo PkNvZGluZyBEYXRlOiAg MDEvMjQvMjAyNDwvdGQ+ JFDxAMU7cVqnQLVu fSEeVFrwKb8lnAjmgPnv AM7cJSBuzlreQOVciC3p GABfuCKasZqfXD8aTIAf frbcy136SqEnYLI2 BPEmkLSzB7MwqC1kJjWj YXWtUDNzA0KxhVTcWKoi C311FDhkEkR4TQRqxqOt Y6RuKWBlyAwhWuT1 j7E3Eh1Uc2JqzfkkZ3Bh kHAvHrHeDykwGEe1Z1Re PjwvdHI+VM17IYOuCR24 IFy4CXR9dUilDOwb LAHeN0IgdT2xNmOyCCVr ZGRkOyc+PHRhYmxlIHdp ZHRoPScxMDAlJyBzdHls OK6oZh8xKLOoZMQz aMfvxMHmXqXxe2ulGSVj UAdtWD6szAqfX7MdzMM2 GPCxk0v3Sw37Q87eF4Gg dXA+UOKohZW3oPM6 tG0tRcTzGlN4UBdmT985 XhXxpHVmZirnp3egb1dx zLu0WfE4ZWRltlQsiHgt ZIU7b1WjVq70I39u IHdpZHRoPSIxNSUiIHZh qBemdi6ibZ0nVc9+PGNv sJC6tMB8jT5iAwXmCoK5 BYdkN940TxVgqQBi Tatkv5atz1onjOv4LwNh AHKbleSntHlcOPQ1e3Rk Io95Q9YrqSxvu5OpSls1 ob06iGFka4P3gZF7 R7VtJXMfdvpamOHvgZgt YE4gUXCbexdoDCVyqP3m FDGbR6d6MsKvMjW2NKtm V0QkopB0HZGqlLZo YBWkdVOPoC1wpspvk3qc dfuyVtElFRRoSNu4ZKv6 KUQmvFffSsMbMSQ0QxL8 JXN3sKEqtV4bwQkv bkfweQ1tYxt+KLS0nYLe vWSOGJ1nTwwvqOV+PHRk VWS4zWpbPLjlGYXbrK6g YXEaO8c6MlYkFpC9 VAkjF2UlkfP3MOGyzZSw EKFwdARGiE3bncmid9ff itorQnFjUDKmQVt5LOf0 LWFsaWduOiBsZWZ0 JlF7MSU1eWRunE9qqNjg igfgrY9pQop+QmlydGgg SPO2GRg0X2OcLhc3GAKi zLwyCI0oiHUmFUjp Ul3ohSvzpTjsBE0gCJGs dcdgk172UtIru1jtGCNv rJQpULmvYRG0M42tv9H4 XNFkDJIbFOF7gGH4 xP4pnJyeijehjAUguRty uqGzgAcqHJfpDPuxV055 SKUybMkgTrHyESa9E7Ch Wzk9XBEexJunXJ4d tRGaAPfqWf7naXplmEmw QV7kGYUymxyoc662FeTr h4bzNSXpsTKiBPfyRRP7 H63ct6P6ULBkAELa AJV3lCC0lT4irVdwzzfc bGVmdDsgdmVydGljYWwt WOzsG970CBRwuWtwOhTe bJr7N5ArGot2YGDq wZrwDQ3csFElMYcnVm8f hBxvmPrhGP4jYMHdgbmo g398LrCuo9sbIOMzvJIx ACpkIGT3E63fg3K0 PVPqCQQeQNH2bUE4vN6m bGlnbjogbGVmdDsgdmVy tKyrUMsjSKwaE461YHQt cDsnPlBhdGllbnQg QGusRBi0M0MvQyuiwCA+ FD67QOCvTU68sSPkmNFf t6zekGe8ZdEpZGWfUVG5 gQfzKSaml6SnNLPi H49dpVHuz8L8VNSplYyt vRCmXhWxyZW7gB3eBXus vawqb6dgdnnaJujyq1mw kb94zR12F51qCBhj ZHRoPSIzMCUiIHZhbGln mz7sgV4jMw7+PGNvbCB3 lUV5oZ3iIULfJwK0KFul G414PjLklLWkCjbq a4lce7ngbZc5VtM2WUWh zkEdwQcqMUW7p6GuZn65 Y33mABpdAYAxAGVnDUMo RONlrYrxpz0ykF0w Ii8+KXDxuWJ8hOS9jG0g GbPuZcF0PEtsY159ClWq eSXhBtcfP15fU8EfdZV+ UNFeKiw6TTNcuXlr WQ0tiKNbUPjzZj0oHXL0 ZaNpSiKiGOopU0WiWZYn mffkjjrzjGB3XECoWCVx vC99Xl8btKmsUNBp jGVVtZ9weuoxe6ubhpfy TvOtSGIlAOp3ZKm1UUUo pUrfTyKoOWZ4IaZ9VCH5 kTRqiA5wyNgdkcew lJ6xX0NxUISrkdwvLe78 yR3sTqSkXiT8MBbpYni+ P8aHLfJWFLwzR8yPREAX PIvWJB6LFHwueKN+ YJWgFPT7wDhmCPlvGCDp eV0uZRCmH2f9PnIcKuB8 JAmzG4HyDGCtyhymOs54 mV1bUpDjIiS4DTjx H9XgphA2JMPxlDLfJCat PKW4H52pl9T2IQEzNMYz WIK2uTU5gN5ffRhdpect bGVmdDsgdmVydGlj APrhGFleN784IDLooSdj DyI4GjIvWjGyQMP7W7Dy Bei7EEQluXwkRT4mfUYm XGtdMa5qcQmcgQzs GW5yHWHuxltcHPRybZ8z AKQshVNfpIfcHI7qBVFq pwqzo630EmCiRRF2LRRj lUCbS8OeiG0uUqQi TULyEGXoB0BnvDHpVMwq E304IXphTkW1OEBulqAe E3BbNMMarIocEtA5b3Y1 Op6pFJCAHTDewaxc dGQ+TFSrTQK7aGbaSQbn FMOydY7qTZUsX1a9UfEl DqR1LYrhL5BfVXLathyd Hz61vN9cRiLoWqE2 IZoyS1EsaqV6YAPccWDy ICgdETJ9M96zk5X7HIPw WNUfDIR7vJI1bI0muOcj bjogbGVmdDsgdmVy lQpwQIguMUejM320DGCe cDsnPkZFTUFMRTwvdGQ+ KLKfRBE5wPptQUsbDWFj eG3gRCNwS0l0PtQx IuN0XAdwD7EzKCMrchcm Rb47lE6dWrNhHnC3QOmr O6ZssxH9GNNrsTDnFBrw DVC3P18kp5W8DTAo PGMhRHL0dAH7zN0fnCgf bjogbGVmdDsgdmVydGlj ICupSNzfS269NDRjtTtt Eo7OTL77OI67K2Ak PjwvdGFibGU+PHRhYmxl IHdpZHRoPScxMDAlJyBz xCgcEF8dYf3rAMBgWBOv hJdyeJIlWfBwj0si HGYkYUvpPN9tfJvgA2Pg fYC1FHQai6g7Zm24L21a F4YpyFZ+BNSqtSI6pUM6 gX2kOoXzOzU6XHmq J208KcPioLHuVxgxp3ty e5iaoId7XwPeBFVtfsEu wBqtHNN1l0ObWa73M74f IHdpZHRoPSIyMCUi YKFiyJkyyf7ugP8cKv4+ PRFqgKM7aII4wT3jXqKu MzF7YSnwM749XeKpbTHy AxjsF95vR3EodIV+ AGXkFpv7IQGvoHzvUZ6s lBCiDGrhIs5jKQQ7NvKj NeLmOWwtM5DmLWUezqbb yfondDY7BIMdUZNx kQ74Ms4eoScoAd1tWZLk HUK2HXTeoTKlB4DhgX8u IvGuCNKpETFdL5XkaXLc JOdsV906HLpwRfE5 JPTruvDfB8HePGOjkTtj BzK5x2A6Oq6WmLxxsPWb TV6mCvJyBNx2I7DuGil5 WQCzsXflSA8rkOKg SNwpSt0frHdudLsiBW7k KYKpfuigh135IdJoa3dz FPNnpFUiPMyjWKO4X02u o6U5JHBaLCDfEGW6 hYD6jA1dsTmjqjdasRJh dDsgdmVydGljYWwtYWxp P360DZPhpGkiRrWJTsk0 N7NvHhn7ICPsgFie ED1asMBdEOtkYk8ziQuv gUmuPH0zGNSiwhwft817 PzMps9kfFUXfuHXwPZtk CMX9O32uz6G4EWQy CXNdXQM7iAW5iR6zpIar bjogbGVmdDsgdmVydGlj RJkwKQnvE221ZYQhiWbp Wp2OGzr8Z3UdWib4 QHJkpVwlZR6ulXQrJArb Aq6jzNipjKizNH2gIHMt yrrcx767SjSzd8okSTGf jRSeQExsIBN2B50t r4O4JOUrHZHhXXI0qLF4 uP6jcIzejtggsDOkeCpl utSkrRagNZxeWLwiT064 IHRvcDsnPlBheWVy OjwvdGQ+RA52lv79P7Si UmeeHtw2FCBrIHL0oRN4 zL3wQBPpEMlzj3H1rMD4 I8OwhyCivm6bc5hn YXB (more content not included)... Normal [facility] .Auto Diff 04-15-2023 Auto [place] % 8 % Normal 04-19 [facility] Comment on above: Performed By: #### 1 [id number], [id number] #### [facility] (DEFAULT) [address] [place] [address] 26660 Baso Abs# 0.1 x10 Normal 0.0-0.2 [facility] Comment on above: Performed By: #### 1 [id number], [id number], [id number] #### [facility] (DEFAULT) [address] [place] [address] 61250 Basophils/100 WBC (Bld) 1.0 % Normal 0.2-2.0 [facility] Comment on above: Performed By: #### 1 [id number], [id number] #### [facility] (DEFAULT) [address] [place] [address] 24050 Eos Abs# 0.1 x10 Normal 0.0-0.4 [facility] Comment on above: Performed By: #### 1 [id number], [id number] #### [facility] (DEFAULT) [address] [place] [address] 97271 Eosinophils/100 WBC (Bld) 0.5 % Low 0.9-4.0 [facility] Comment on above: Performed By: #### 1 [id number], [id number], [id number], [id number] #### [facility] (DEFAULT) [address] [place] [address] 89335 Lymph Abs# 2.9 x10 Normal 1.3-2.9 [facility] Comment on above: Performed By: #### 1 [id number], [id number], [id number], [id number] #### [facility] (DEFAULT) [address] [place] [address] 52880 Lymphocytes/100 WBC (Bld) 30 % Normal 14-48 [facility] Comment on above: Performed By: #### 1 [id number], [id number] #### [facility] (DEFAULT) [address] [place] [address] 48766 [place] Abs# 0.8 x10 Normal 0.0-0.8 [facility] Comment on above: Performed By: #### 1 [id number], [id number], [id number] #### [facility] (DEFAULT) [address] [place] [address] 27260 Neut Abs# 6.0 x10 Normal 1.5-9.2 [facility] Comment on above: Performed By: #### 1 [id number], [id number], [id number], [id number] #### [facility] (DEFAULT) [address] [place] [address] 95749 Neutrophils/100 WBC (Bld) 61 % Normal 44-88 [facility] Comment on above: Performed By: #### 1 [id number], [id number], [id number], [id number] #### [facility] (DEFAULT) [address] [place] [address] 04894 CBC w/ Auto Diffon 4 Erythrocyte distribution width (RBC) [Ratio] 13.4 % Normal 11.5-15.0 [facility] Comment on above: Performed By: #### 7 [id number], [id number], [id number], [id number], [id number] ####[facility] (DEFAULT)[address] [place] [address] 31123 Hematocrit (Bld) [Volume fraction] 40.7 % High 33.7-40.4 [facility] Comment on above: Performed By: #### 7 [id number], [id number], [id number], [id number], [id number] ####[facility] (DEFAULT)[address] [place] [address] 88211 Hemoglobin (Bld) [Mass/Vol] 13.7 g/dL Normal 11.3-15.9 [facility] Comment on above: Performed By: #### 7 [id number], [id number], [id number], [id number], [id number] ####[facility] (DEFAULT)[address] [place] [address] 76365 Man Diff? Auto Invalid Interpretation Code [facility] Comment on above: Performed By: #### 7 [id number], [id number], [id number], [id number], [id number] ####[facility] (DEFAULT)[address] [place] [address] 10612 MCH (RBC) [Entitic mass] 29 pg Normal 24-34 [facility] Comment on above: Performed By: #### 7 [id number], [id number], [id number], [id number], [id number] ####[facility] (DEFAULT)[address] [place] [address] MCHC (RBC) [Mass/Vol] 34 g/dL Normal 26-37 [facility] Comment on above: Performed By: #### 7 263200, 71287893, [id number], [id number], [id number] ####[facility] (DEFAULT)[address] [place] [address] MCV (RBC) [Entitic vol] 86 fL Normal 81-100 [facility] Comment on above: Performed By: #### 7 [id number], 83558814, [id number], [id number], [id number] ####[facility] (DEFAULT)[address] [place] [address] Platelet 430 x10 High 138-427 [facility] Comment on above: Performed By: #### 7 785472, 69255164, [id number], 7732105229, [id number] ####[facility] (DEFAULT)[address] [place] [address] Platelet mean volume (Bld) [Entitic vol] 8.5 fL Normal 6.3-10.2 [facility] Comment on above: Performed By: #### 7 094805, 15947338, 0158575313, [id number], [id number] ####[facility] (DEFAULT)[address] [place] [address] 69610 RBC 4.75 x10 Normal 3.70-5.30 [facility] Comment on above: Performed By: #### 7 532119, 32410553, [id number], [id number], [id number] ####[facility] (DEFAULT)[address] [place] [address] WBC 9.9 x10 Normal 3.5-10.5 [facility] Comment on above: Performed By: #### 7 106662, 88681065, [id number], [id number], [id number] ####[facility] (DEFAULT)[address] [place] [address] CMP Standardon 04-15-2023 eGFR Non AA >60 Invalid Interpretation Code [facility] Comment on above: Performed By: #### 1 [id number], 49610151, 5317395, [id number] #### [facility] (DEFAULT) [address] [place] [address] 99745 eGFR AA >60 Invalid Interpretation Code [facility] Comment on above: Performed By: #### 1 [id number], 37877937, 3592258, [id number] #### [facility] (DEFAULT) [address] [place] [address] 93714 Albumin [Mass/Vol] 4.5 g/dL Normal 3.5-5.0 [facility] Comment on above: Performed By: #### 1 [id number], 98898286, 1475874, [id number] #### [facility] (DEFAULT) [address] [place] [address] Albumin/Globulin [Mass ratio] 1.2 {ratio} Low 1.4-2.6 [facility] Comment on above: Performed By: #### 1 [id number], 02368397, 1803742, [id number] #### [facility] (DEFAULT) [address] [place] [address] 35935 Alk Phos 68 IU/L Normal 32-91 [facility] Comment on above: Performed By: #### 1 [id number], 94597604, 7425753, [id number] #### [facility] (DEFAULT) [address] [place] [address] 54119 ALT [Catalytic activity/Vol] 34.0 U/L Normal 14.0-54.0 [facility] Comment on above: Performed By: #### 1 [id number], 01411329, 8594105, [id number] #### [facility] (DEFAULT) [address] [place] [address] 75318 AST [Catalytic activity/Vol] 27 U/L Normal 15-41 [facility] Comment on above: Performed By: #### 1 [id number], 79582887, 3379530, [id number] #### [facility] (DEFAULT) [address] [place] [address] 64209 Bili Total 0.7 mg/dL Normal 0.3-1.2 [facility] Comment on above: Performed By: #### 1 [id number], 72333924, 5729802, [id number] #### [facility] (DEFAULT) [address] [place] [address] 97388 Creatinine [Mass/Vol] 0.77 mg/dL Normal 0.60-1.30 [facility] Comment on above: Performed By: #### 1 [id number], 70404231, 9070301, [id number] #### [facility] (DEFAULT) [address] [place] [address] 89952 Globulin (S) [Mass/Vol] 3.6 g/dL Normal 1.5-4.3 [facility] Comment on above: Performed By: #### 1 [id number], 91166955, 9043062, [id number] #### [facility] (DEFAULT) [address] [place] [address] 78100 Osmolality 269 mOsm/L Invalid Interpretation Code [facility] Comment on above: Performed By: #### 1 [id number], 90373167, 1967887, [id number] #### [facility] (DEFAULT) [address] [place] [address] 06262 Protein [Mass/Vol] 8.1 g/dL Normal 6.5-8.1 [facility] Comment on above: Performed By: #### 1 [id number], 57229978, 2966798, [id number] #### [facility] (DEFAULT) [address] [place] [address] 53876 Urea nitrogen [Mass/Vol] 10 mg/dL Normal 8-26 [facility] Comment on above: Performed By: #### 1 [id number], 01643754, 1955039, [id number] #### [facility] (DEFAULT) [address] [place] [address] 17258 Urea nitrogen/Creatinine [Mass ratio] 12.9 mg/mg Normal 4.6-16.2 [facility] Comment on above: Performed By: #### 1 [id number], 69158965, 5695152, [id number] #### [facility] (DEFAULT) [address] [place] [address] 32965 Calcium [Mass/Vol] 9.0 mg/dL Normal 8.9-10.3 [facility] Comment on above: Performed By: #### 1 [id number], 75599925, 4059329, [id number] #### [facility] (DEFAULT) [address] [place] [address] 98168 Chloride [Moles/Vol] 104 mmol/L Normal 101-111 [facility] Comment on above: Performed By: #### 1 [id number], 94896766, 1390039, [id number] #### [facility] (DEFAULT) [address] [place] [address] 74048 CO2 [Moles/Vol] 23 mmol/L Normal 21-32 [facility] Comment on above: Performed By: #### 1 [id number], 29943184, 5033329, [id number] #### [facility] (DEFAULT) [address] [place] [address] 92357 Glucose [Mass/Vol] 94.0 mg/dL Normal 74.0-118.0 [facility] Comment on above: Performed By: #### 1 [id number], 64717359, 6128626, [id number] #### [facility] (DEFAULT) [address] [place] [address] 81663 Potassium [Moles/Vol] 3.9 mmol/L Normal 3.6-5.1 [facility] Comment on above: Performed By: #### 1 [id number], 89652288, 7776330, [id number] #### [facility] (DEFAULT) [address] [place] [address] 05612 Sodium [Moles/Vol] 135.0 mmol/L Low 136.0-144.0 [facility] Comment on above: Performed By: #### 1 [id number], 22222126, 8391016, [id number] #### [facility] (DEFAULT) [address] [place] [address] 66382 Anion gap [Moles/Vol] 11.9 mmol/L Normal 5.0-19.0 [facility] Comment on above: Performed By: #### 1 439678962, 73466226, 8563795, [id number] #### [facility] (DEFAULT) [address] [place] [address] ED Clinical Summaryon 2023 ED Clinical Summary [facility] - Emergency Department [address] [place] [address] ED Clinical Summary PERSON INFORMATION Name: LIA DESAI Age: 22 Years Sex: FEMALE : 2000 MRN: Acct#: Visit Reason: Vomiting - ; NAUSEA, VOMITING, 6 WEEKS Arrival: 04/15/2023 14:48:29 Discharge: 04/15/2023 16:38:00 LOS: 000 01:50 Check In: 04/15/2023 14:48:29 Checkout:04/15/2023 16:38:00 Address: [address] [place] [address] PCP: ROBERT MARRERO PROVIDER INFORMATION Provider Role [...] EDUCATION INFORMATION Instructions: Nausea and Vomiting, Adult, [id number] Follow-Up: With: Address: When: ROBERT MARRERO [address] [place] [address] Within 3 to 5 days DIAGNOSIS: 1:Nausea/vomiting in Patient Understands: Yes - Patient/family/careg iver verbalizes understanding of instructions given Comment: Normal [facility] ED Patient Summaryon 024 ED Patient Summary [facility] - Emergency Department [address] [place] [address] PATIENT DISCHARGE INSTRUCTIONS Patient Information Name: LIA DESAI Age: 22 Years Date of : 2000 Reason For Visit: Vomiting - ; NAUSEA, VOMITING, 6 WEEKS Arrival Time: 04/15/2023 14:48:29 Primary Care Physician: ROBERT MARRERO Attending Physician: Yassine Maldonado MD Comment: Visit Diagnosis: Diagnoses This Visit Nausea/vomiting in (O21.9) Vomiting - ([id number]) The Pharmacy at [facility] is open Saturday through Saturday from 9A [...] alcohol and/or drug addiction problems; contact the [facility] 29/10 Crisis Hotline -Text 2TIFI kl 407649. If you received any narcotics, sedation, or [...] With: Address: When: ROBERT MARRERO [address] [place] [address] Within 3 to 5 days Medication Information: The exam and treatment you received today in the [facility] Emergency Department were for an urgent problem and are not intended as complete care. It is important for you to follow up with a doctor, nurse practitioner, or physician?s activity assistant for ongoing care. If your symptoms [...] so we can reach you if necessary. [facility] Emergency Department has provided you with a complete list of medications post discharge. Please inform your assistant professor surgical technology/provider of your visit and for further instruction [...] other disea (more content not included)... Normal [facility] Extra Greenon 04-15-2023 Tube Collected Yes Invalid Interpretation Code [facility] Comment on above: Performed By: #### 7 [id number], [id number], [id number], [id number], [id number] ####[facility] (DEFAULT)[address] [place] [address] ED Clinical Summaryon 2023 ED Clinical Summary [facility] ? Urgent Care [address] [place], [place] [address] Clinical Summary PERSON INFORMATION Name: LIA DESAI Age: 22 Years Sex: FEMALE : 2000 MRN: Acct#: Visit Reason: UC - Nausea; NAUSEA Arrival: 04/12/2023 09:25:14 Discharge: 04/12/2023 09:56:00 LOS: 000 00:31 Check In: 04/12/2023 09:25:14 Checkout: 04/12/2023 09:56:00 Address: [address] [place], [place] [id number] PCP: ROBERT MARRERO PROVIDER INFORMATION Provider Role [...] With: Address: When: ROBERT MARRERO [address] [place] [address] Within 3 to 5 days Comments: Diagnosis is history of nausea vomiting, during . We provided you with medication help with nausea. Keep hydrated. Eat light, over the next 24-48 hours, soups, Jell-O, avoid heavy meals. Follow-up with your own primary care provider, or your CONTRACT ADMINISTRATOR physician in the next 3-5 days, for reevaluation. Return to the emergency room for worsening symptoms or concerns, worsening abdominal pain, worsening nausea or vomiting, spiking fevers, acute shortness of breath or chest pain, or any questions DIAGNOSIS: 1:Nausea and vomiting during Patient Understands: Yes - Patient/family/careg iver verbalizes understanding of instructions given Comment: Normal [facility] ED Patient Summaryon 024 ED Patient Summary [facility] ? Urgent Care [address] [place] [address] PATIENT DISCHARGE INSTRUCTIONS Patient Information Name: LIA DESAI Age: 22 Years Date of : 2000 Reason For Visit: UC - Nausea; NAUSEA Arrival Time: 04/12/2023 09:25:14 Primary Care Physician: ROBERT MARRERO Attending Physician: Oneil Salomon Comment: Patient Education With: Address: When: ROBERT MARRERO [address] [place] [address] Within 3 to 5 days Comments: Diagnosis is history of nausea vomiting, during . We provided you with medication help with nausea. Keep hydrated. Eat light, over the next 24-48 hours, soups, Jell-O, avoid heavy meals. Follow-up with your own primary care provider, or your CONTRACT ADMINISTRATOR physician in the next 3-5 days, for [...] these instructions at home: Medicines ? Take owwe-nyw-gscekes and prescription medicines only as told by your health care provider. Do not use any prescription, kmah-zlh-phdasgv, or herbal medicines for morning sickness without [...] to yo (more content not included)... Normal [facility] Recordon 024 Urgent Care Record [facility] ? Urgent Care [address] [place] [address] PATIENT DISCHARGE INSTRUCTIONS Patient Information Name: LIA DESAI Age: 22 Years Date of : 2000 Reason For Visit: UC - Nausea; NAUSEA Arrival Time: 04/12/2023 09:25:14 Primary Care Physician: ROBERT MARRERO Attending Physician: Oneil Salomon Comment: Visit Diagnosis: Diagnoses This Visit Nausea and vomiting during (O21.9) UC - Nausea ([id number]) If you received any narcotics, sedation, or [...] With: Address: When: ROBERT MARRERO [address] [place] [address] Within 3 to 5 days Comments: Diagnosis is history of nausea vomiting, during . We provided you with medication help with nausea. Keep hydrated. Eat light, over the next 24-48 hours, soups, Jell-O, avoid heavy meals. Follow-up with your own primary care provider, or your CONTRACT ADMINISTRATOR physician in the next 3-5 days, for reevaluation. Return to the emergency room for worsening symptoms or concerns, worsening abdominal pain, worsening nausea or vomiting, spiking fevers, acute shortness of breath or chest pain, or any questions Medication Information: The exam and treatment you received today in the [facility] were for an urgent problem and are not intended as complete care. It is important for you to follow up with a doctor, nurse practitioner, or physician?s activity assistant for ongoing care. If your symptoms [...] so we can reach you if necessary. [facility] has provided you with a complete list of medications post discharge. Please inform your assistant professor surgical technology/provider of your visit and for further instruction on these medications. Any specific questions regarding your chronic medications and dosages should be discussed with your primary care physician(s) and/or pharmacist. New Medications [id number], [address], [place] [id number], [phone] ondansetron (ondansetron 4 mg oral tablet, disintegrating) [...] is not kn (more content not included)... [facility] Coding Summaryon 03-06-2023 Coding Summary HTMLBase 64 VeurtcxwMBq2qZz+PGhl YWQ+OV9GLOHrJ93yzFOf uE6sB3FNPHtALvjmRFJT NAaLBzLfseBwTZ0iuNGz ZXJu IC8+WP8iBDWrQmxeyEOv m3M3iMW4R13she4bZNhw lSO6AOUnReOkmbags6ou sFi7MValQkgwDkXh XSAheU94AYW5sC27Db03 fMYqcREvb2amyNf1JvOq LFJjUGB5mTweVRpsu8Bk KZHiC66msLCwd3O2 IGNvbGxhcHNlOyBlbXB0 sY9bLZogwfnui7azgaga Haj0sk30jRMzq1A7dOL9 R5BjpmX0JBEzlHGy FbizrVPSsN9gsbxzd9dq ueemJyIfBSEuDGv5CKq5 QVHksAakZjQrMJ34NCA4 BFKctbWkZ3YmULQx jVzbSmA5x3X1Gt3OT7NC VdlfH5HZXJPLNFvzwAX+ FP60sl96E9RsSldxHwe5 URUfDSA6tKI6sK0r OLZqOGobx8F1eED2A2Bl yqEefu7dm1aaRBLwAGbe Q14kuKCnc5C7RDLglAJ5 LVMcyTsnJnKomJ49 Oyc+HJGvuAeuu1JoIkmi g7puw5kliLq9DdbmWLOd xkQypLdkCYM7g3HiMc2d MQXwsMZ3yEQ7oX1o CjBqYqS1ZGonY476KvXl vFWdNgltH11oJ0BiaNZ+ RJNuAyf1BCWmiNbvQF5u V1WwDXLsqnbovINa mNeiQF8uWLHlsnuzRBAm rB9qJZAtA4m3WcMhYiZ9 GIimY1FkXITsxsdrGt58 hZ6oFdJcGfB2YKkk T2YatkS1PRCvrXXdMClp VOI8T00lc6I3IGOeREVf DHH7zSA0jS7gkLnhobsf bGVmdDsgdmVydGlj MEkcBFnvP085DLJofWcd PkNvZGluZyBEYXRlOiAg MTEvMjkvMjAyMzwvdGQ+ XLKnHYD4pLguFIFm yMWmYCjdGq8cbYdxsSdw VY3lZPIvxihbDAHupQ5s XYFurYDhkFhnOW8aNMRl zihvg111NdNoSSP6 SBXyuVIsI3IlwM5vThKm KLVyKEMtA1TeeRYuYNxj W098SEqoYoX8KNXaueIs L1ZqCWUwvGmjIdP9 v1P9In5Hf7TunkcmZ4Jt rYLnNjPfOrbfNGv1Z1Zj PjwvdHI+ED73WBGiMY03 RAw2THE3mEbuVZgl QYHgO4JvoY7aRpVqHOAi ZGRkOyc+PHRhYmxlIHdp ZHRoPScxMDAlJyBzdHls FX1tYj5xPBSxHDSy bYyxrLYeRmEki2ocIDUb FQzkTB4qjMdxM4QliNX1 PLIpm8m3Uh59W84pT7Ef dXA+KPXviLU0mMZ0 xD5pKeXtXgG0BGojI253 GpHiiCSxFvniv0shn0mj lVa2AiX6EAKgzfNhaHsu KJM0n9UmLg57G77w IHdpZHRoPSIxNSUiIHZh kZqwhe6nsO1uAb1+PGNv eJF6fDQ1yZ5gPoXiQmH0 ANecW893JqEraPEa Emtul7qbb3qnhTl0HfJx FFKvwzTjhSttBCV6q7Zy Fi90R9FndDmcz9UfFtb1 je33sQFmm9Q8lFF7 N6VuEHCesjecpPUocOdz SH6oQUVebvuvECBzuT3g ENAjQ5m3LgJpExW2NZjb K0TbdwN3QLLkrTWr SSExsKEFoH4ueekeu3hh zmocPiJgAEIgNWc0DZg8 OXJbyQgtPkHoLKU0MaY9 RQF9tILkxH0lfQpj txnvvR7xLxe+PQW3gUIh rXXJRI4gLfjbzUD+PHRk MSR6gRtrIFnhOFMftG6e GMDgP4f0NoReClM7 GIcmP7ZzrzE9BVTdqXMu QCCezYAAhK3tlmasi9qb mqgyQlQzUCWqYVz8VRy9 LWFsaWduOiBsZWZ0 XaO3NCU2nSEgiR7zsGwu bnnerN0iBcf+QmlydGgg WHN9YPd7O9IxFbl7IIPc tCzpGN1qhWXfVFhg Jc0xpYvkmKzoDG8xEIOx lfyoi718HyXia5fuKXLp vDWsVCgsKGA6N74ps9E7 RVEuMCVaAGX0aQA1 oR0qvSwoslsrkMVcpRzq zhUgjMecIOzsDXveZ843 UUQacGptVlHkNPy3L9Qe Ckl9QGPunOyhVL3t zDLzRUmwEr7bvRjhsHtz IT2pKGCczwtku271WnYn e3amUDCdwNEfFWoyOLP0 M62rj1E5PRQtKSDi BBE5gAQ3zR5ubTddobnd bGVmdDsgdmVydGljYWwt IJawD117TYGolRgxSeNr mJo8K5JvFpb4NDDg kBofEG4ekRUjTVhcBg5o uMtbxUuaWD4iXYCngzis x253NwRhh4zsNCDttTEr JOesDRI0T07cz6K1 LEPwRQUgZHT9nNB8yL4j bGlnbjogbGVmdDsgdmVy lThkVLfkWTpjC009TMFg cDsnPlBhdGllbnQg VDdtKPx3F1ScHpfwbJP+ IQ96TSHfRS06wYBjmEJj d1xqqJy3ZbXcLOWpLKB4 eFscUEcjw9KoLEFh M07reYQkh0T5ITQaqRbd bEYyYgRqnZW4yM3dQErr kqjbk4pwjyjsIhjkj6jb gm78aC64E06pBJja ZHRoPSIzMCUiIHZhbGln yc1zsH1xFq5+PGNvbCB3 vJR6fE4zIRVpLrD9AIai E735IvFgxIRuCzne m2vtq0cyzYj1IdX5KMVk ynVmqIyjVKX0b9IsXe92 M71cHLbdFIUvJOTrWWWd HWEwgKbulb0tvL9r Ii8+UXOegHM4lTG0fD5k QeDyQtE5ZGcjR573WmGc sBGhMjuiP64wX0HflZP+ HNSfLnf9RPHppJyj GW3gxZWfVUktCt3yZFH7 YfRyAdIeBArbQ7RaKHZz ogiqqqqhiUA6GRWhPUZg fK88Ho7wxAemYSFo rDNKgK4uvaqqt5cfwojg SeRyYZWnGFq1XIt8NLKj eCltZkHjYFF9WhJ5OXC4 gXMyeC8fbSsqdjzy gI0wZ5ZtCMVjzqbwGt31 lC5lGfQkZzE0EVnnYrg+ U1yXBpIEXBbiU0xPDELM HBoSYH9EMOeokNT+ ITZlMMC7tKdmNLlbIWLh dW4wZPMcP6o2PuCyYjM6 LWitC3LiBVCuqauxPe02 jK5rDfXnAxH2GYqf A6ShdcE6NPNjjYDfNDas CRR3N41ug5I5MQFtHLBv SMI0xXI6oQ6hbIcfnzpx bGVmdDsgdmVydGlj XIgaOPthG913SDKlmKae CdW0HdLcWqUkXUW3C9Xh Lnj6PMBgjZlrSA4nuFVx POztXq7xuNtlkZtg PU0nECCeueqcXCWwpB6r JQIsxNPbwZugJH6yPVKy gebfs084VwKkJAI4AQZa rJAdH9RzbQ7gIsUn MKAmPUUlR0BluYUzZRgk Y675BQsaXaC2PLStzmSo M5CeBEUiiDtzLyZ7s7E5 Cy7vSCNDHOQzktcp dGQ+EJCrOXY9cAdgBBrq IEHipM8yIZOxO2h2BrFd SvI6LSjzV2UnMQDjtqzo Zb75mB9zEmZoKlC3 KQvsW2PeluO8SGOosRIs FOjeGBZ7G11fi3G3FWKs RHMxVVU2uRD5bL1erVsa bjogbGVmdDsgdmVy sItoMTbuWJarP595HQMm cDsnPkZFTUFMRTwvdGQ+ OVNcHGJ7eMgvZGvpEUPn mG2aPEGjW3i3HwBl UbZ0NQfgI7NyLORqanmn Bw88qQ9vKeBhCbP7MTqa A9GeveY8JWHbzUIcPDzo OFC8Y60wi5A4LYYk IUFjMBA5kXH4rS7vmWoi bjogbGVmdDsgdmVydGlj VAcrPBalH640VDJmrBzu PxHqAQPuMU1geKtr dGQ+NA41lo75E2DxLmwd Vxm8MXObLGU2pQL8qC4j ZQTwKYesx8O3eUF9R2Ip uzHijs8kl6vuONCc VWtkI24qjBGnz7Q7XPUb tIZ3ICYeuOrpDaSotX35 Oyc+RYUwvCprj5YuKgxp i9sxy3vfkSh2ZbBp IEBmhrYezZkeDKZ9a7Oe Hw88H85yUXxaUYDoELUs GICiUZBriCdekf0qgH5w Ii8+VWZhaIM4mGO2 sA3eCiWuNnZ2AHnzG124 JvWmwXHeVytaz9fug7fc yCi8JsZwLUGzqyJhlBpt MMI7c3OyUs71H8Hy eJfgg1MlCym3yl07sOGb m0B1iHU4X4WjEORrnzde sYCvgJdhSK9nVGQczqwt VGNbnI9aRNXiK7p7 JvPkEyE7FFmwL5PwqkR4 UXRcjYGxFRUwqVMStP1n uldkd5girmceOqGyNSEw STj8BVd2JTAgkJyv YcHeHGX9AfM0UGL0tEZp oH0ivFjeeaqlbI3gRus+ EPy9k2tpmKOeZJ1qiQP0 FU51UU44hZTbq7X3 kXM5G3BnHMFzdtucrjkx wIA9QPVoVMDeiK64Jn3q xDeiWk5uCLWxOTV1RQOe uOPeY7CbfO6iAkMp LDGmCVAiY1IuuPNzLWup C409KEldEzX2IXOekpLk K8KaPZBcrSioUvB6q6W3 Mi0GQI82UY69AZ81 iEEei0B3pEY1M5HxRJHv mtgcuisvoLG8QPDwNHKr lV84Rw9kiAciUp4aQCIp VNQ1ZJQcmWJbP1Ov nQ0pCwClMPJeVYKuY1Ho cABkKQpcR467CSevKwU0 RIOtfmAkI8XaCOYvpXlt VeZ8r0P9An2QBz21 YI63NK22fQOot6S9xPV8 G8PrNXHvioxejvgooIQ6 TEHzHCSfzJ66Ta2qmYkp Ua6fLXRdITM3RLMi uRJtW9VzeB6lXmIbCBSh QUXbK4SkdKOwBSpyQ914 BRgwUsL9LSLeehZvL1Si YDJuuHxoFjU9u9L0 So3FFXteymd1M5RgSrfy dHI+FB56BHUyMV17rDRv zRFqm5uwdHw9XrWpRWGi CMH4xBwkHOgoo3Nt ZXI (more content not included)... [facility] Coding Summaryon 03-05-2023 Coding Summary HTMLBase 64 QrvaswbzWZq5wWo+PGhl YWQ+JE9ZBCIdX66xeHSt dW7eG6STDFiSVaewGSQB IOiCTjIxsqWzTJ8heDDi ZXJu IC8+ZJ2eUEGrTvkwtGRb q4W9zBP8U67aye6kYBbj uIM9YGAmGeUefuwyi8tg tPf0UGvbVxelJtRg SPPopL68XYN4rV51Jn85 qUNzvFSit4zugQp9YnRb JDUzFJF2gBtbXJkvr9Vn IVTtA92yqWVam6N9 IGNvbGxhcHNlOyBlbXB0 vL0qENnhwpdaw3ypqpft Sfz7yj75tGOqp3X7vKV7 T0EvdcP4KMAiuAXl JlvmkYMDeC1nyzdem8kp ghbhJnDmDFEgOCe2PPa9 NGKujLimSnGtMC34IJE1 CORltkNzL6IkIOSh cXfrOeY3h6H4Ln0JZ4VQ RdzfN3OHVBLPDCkggSK+ AJ95qw04R9QbHsgzSbf4 TWSlAVQ3xLQ0cE1t OQEjVKree8O1tUL1D9Bp uwXmpp8wz6ktXMFmVLnx X94khCSxk8X3DNGowDT6 OLLzaAwlMvCqxO41 Oyc+WBPryMrgj0NkZcyl m4tok4vwmIa9JwmeGNLf zeJjyXiqQVO2e6YwUo4l ZDDlgAJ2gMZ9jU9t JnXsMrO1QRjaX255BkMv jEZlNpygE60dU0DfkYE+ QEUvCgs2AVGeeYmpHA2y Y5LhZXMrkhqsnPZg iKjlTM3bOXYndmbtONFq fA0bAMGhR3e6WzBkIiX3 VZdsP3AxCVTixekoRu93 fE6mExJxVnU9LEmu C7EknjO6ABIcyJOuIIxg SNB4I29vs7A9AOJaWUUd DAH5vVK4jI5poKgsewrv bGVmdDsgdmVydGlj TIknRAiiP703WNAoxHeb PkNvZGluZyBEYXRlOiAg MTEvMjgvMjAyMzwvdGQ+ NHRkRFH1tKbtBGHn zKFzACrsUn3pgHgkrGez KD5lGSCaftsfUETjtP4o XAYrzNHxvBxoMI9nJYHz xbhem993TgJdMLN2 CTLzgAEoI7VgaY1rLcZi YYJqBMKiA4JynDWnSQri K360PLhbQoN0OHAnwjIc V4SpSNOawRnpPcY5 e1C1Tr6Hp5BkkgkmH4Fm pJTrIcMlGezwQMs0X3Rn PjwvdHI+JU51XFPxMW61 ONf7OMG7xJctRJbq NYAlP3XgtQ8qKfMkFULb ZGRkOyc+PHRhYmxlIHdp ZHRoPScxMDAlJyBzdHls YE8lEj9fUGKsOMBq eVvhbKSbWhAwx9vrFCEq RBuwNA1joDagP6PvwLG2 VIKlh9v5Ri59G93nO8Jn dXA+TYFkfMZ0wQH9 iZ9nFiPwYnA0LMtwO138 EnSioXOoZuvet4eru0le vZd5RpQ8QTIdpsXsnInj WJB3b5XiWa41E50e IHdpZHRoPSIxNSUiIHZh zMubtf5zxY3xJg9+PGNv gAZ0uDU2tW8hPrRzZiT1 HBorX192CdApiKXd Jkrjb4hmy3nwqDi8UhZb GUFpqvEvaWopWLO1n8Xg Ke56B2QvpHhov0JkKti9 kf10dSItr4X8cZO9 S6UhYGFxjduerKNgbHow EY8rWZTawjqhRIWvzV8f ATEiE6p9DpWdEbL9NAxu V4PqebR0GJOghEZc RXKiaMXPmT2vkuxou6xa mvnxXiBgVMHcTOz8LDs8 RMAkzZczWdJyKVA4DeN1 NOH3xABkzL1zeRkq qdkwpC7cTml+DTO9cSWw pNOSYQ1cEimtkCT+PHRk SPI4uRbxAZcdHIItwP8k WPOnC7s9CqUtVsF1 WDafJ3PrdcD2YWUqyYKg CEYkeNXNvP5gitodj8jz tzysKtRkDTCpQTs0CVg0 LWFsaWduOiBsZWZ0 RtT6CEJ7hEBgfV8jbWol kgjneY0aSqn+QmlydGgg OXE8VXe2B9PpVpq1KPQc wHirDX7kyYAwDMhr Yd2yiHkurVhnWG9zHJKs tgldm869ScFcx4edQYIi xDDzMOtnNIX2Q43jm2M3 NVTlDLMqSGM9zPY7 yB4kdFzsdksdmSJyiZtl yfTclAnvFLvbTNheN183 GHAdgNppJeJvLHk3G0On Nph9NHUvoXjhWU7k nVQkELlgZl0drExzyIgy ZW7cSWKaziqbv732MuUt w3yqKTVstPQfLKgcLEK3 I57hv3U6JXVjNULs IIY3bVZ3gQ8vmJqydpvl bGVmdDsgdmVydGljYWwt QTbaQ491IFAifPcaQtPm iKx8N9SqIeu7AMDh eFuvHE7smBKwJDafYn0m cOrajEczPP7vAHHftyha g679HfGpk4jxKHUizPEj DNurOEF9Y49mn7A5 LTIuYJBeDYC5qWQ6oG9o bGlnbjogbGVmdDsgdmVy xPinVVunGOkoE099WTQb cDsnPlBhdGllbnQg AJwzGAp9H0DfDcjaaLZ+ IH90KDZqAI30qZBitOLc f4nxgWr0AlRgMIYkNIN9 pKfqVFwhx3ZqDINe L07hiRBsj0X8CLOsiUuw iVLfGpCawDB5uJ2vDQdg cppsb6okkaynHvwkf9yt nc65sH13Q95eYRkn ZHRoPSIzMCUiIHZhbGln kl4suU5bGr2+PGNvbCB3 zTW0uG3oXCAuGpK6SMat Z002UbMqaWSoWihl s7nvd4vbdDn4DvH8NWVj fmCaeLchILY4n2MnMw87 V86iDQuiOJKdITUvLHDi OISesOocjh7qiK8i Ii8+LYSdiGB3kII2hE2r VbGiNhM2YIhkD216UqAd jTTgTgxaH84mI3UjyKF+ RNIbWgd1QONryCir WK5hdJGyGJfjCn4mIII5 RyCtEpOzJEaxV8MnDUSu gulcymsqyBI7OWVnXFEz lQ54Os5fwRpfMNLd mOANfV2dwxclk6kyiluv CxKdAFEvXLs6ACc0UKCh nXniTiRjIVR8VeG6GBJ5 fPGvcJ3njVamrctt uE5wU6UiJCCaebaqHn27 jS5mMqSoEcA1EQebBjc+ H3iHPkAEZBxhV5iYWMUA LJsWYW0NYYnyhJN+ TDKhALZ5zDptUSxkTJCx iQ8pEAEcH3j9DgTcMsV0 OUmbG6PjMGQznsuuVb39 jU7tAiQgCmI6JYcd A6ZtdnS6ICQrqDInRJuf YGW0Z61ww0D7DLErRPXi LJN9zIO1xH8vcXxbkjkr bGVmdDsgdmVydGlj NZodTOtyJ582OEBfsOwn PgE2UlQkFrSlIMC9W7Nu Dsg2MSBzaEcbKB7sgYPu FBcgDd3iiKprtXjs NQ8pNDZpmqokORResD2y YQUtkBBviLdbTW0mTQWa mbomf582ZuNvCEO0JJVu jXCyA6OviO6kPvAz LZDxFBTuY7RhxJDqVSei L473HPotUfN5OEApdjGf L9YtLUCgnWzwZeR5l2V3 Sd2nZTXEKJSxgfeg dGQ+NRFoNOP7uDfjEDsg ZQKshG8wDIIbM4m9CwBl EbM4ZZmkA9KwBREnxitu Wc81fW2aMuEcEqZ7 FBsaK7JeznO8LCBraASt TSsoINU4B71xg1K2YUUb EWQpYVY8mQN2wQ8ytYvq bjogbGVmdDsgdmVy dMiwHZebTSmzA088RRSy cDsnPkZFTUFMRTwvdGQ+ OEMvONB3cGqzKMohOZWq pH3nPMVaA0b0UuLa DsB9OBsbL7IlMKWoauqu Rs73tL8mEdEkOgI5LCzp Q9LuymS1PRCyqOXaNZhd MBR0H56lp8B7TELc VRJiKOA6vWJ2mR7grYgh bjogbGVmdDsgdmVydGlj ZSyoQTdzG861NPBbxCml Jh6IKF02JV15E2Fd PjwvdGFibGU+PHRhYmxl IHdpZHRoPScxMDAlJyBz gLwhVP7pCu8lMLLhTEBq rIrwbHLeRbShg6xc OGWrGAotGS9lkJjtJ0Ke uPX8WOGag7t9Lp37J96e S1EpwDZ+MGVbsXH2fOQ1 gS6lAdXqNiQ6YHrg Y751VvUiyWCkNdszu0dd q4kzcRn5YxXvSPBsdgJq lXngEGK4n3AkWv60C80q IHdpZHRoPSIyMCUi EZTgiSfqlz2ncD4hSk7+ UCRylGM2oZC2mP8aKgGa LgE3AYcqQ101PcTtyVNb PnzhJ86yE6CksCQ+ GAQaOcl4HQSzpZfbCY1a kDCrQCmfDh5bLDA2NiGg QxEoSFiwJ8QbRAIxsuab lqvyeFE2WEPfVJEj iB18Nj2gkVqaWs3rEUFi LSW5WSHubHDvR9BjxL9i QiFrUIKtTDGmF5FeyCXw OYjtQ268OJeaLgI0 RDBbuiEjH8DmSIMgdIld AeZ2y5I0Xz6BfAnaaNKl XT9pEsEcELm6W5CvBhz0 QMImbAxaFW1owXOm BLajOa0ltDhvoYzeQX7c KBGrdaxjv944TiAtl8at UXAdtFFiGTyaUCQ1R17m j9K7XFJtCTOdZFD9 kLZ6sY7osWbandofhQMb dDsgdmVydGljYWwtYWxp I656HEQitBljImUEUxe7 G2HcAjf1GBXclFax NT9urREaFIdzKw9miOpy uUgeGJ6fYFErgvitr866 BrDhv2yuQPColPMgUQlm HRY0M51hw2E3FNHz BVMbTBI9gYZ2rK4zcIwa bjogbGVmdDsgdmVydGlj MUrtTMnaL999SZZhqSkl Gk4XIny9J6ZhUjo3 DYZezRepSR5naXBwNRxt Ex6vwWrfhEkyLJ7jKJTk tcjdj149TqKks6awVLIl aFXpLWwgCUB5J41e e2F7VVEwHSYoUCT3yEL5 hK0gdOvlqvadgUPhnWiw xlFcyNbkIPyzZTsbQ678 IHRvcDsnPlBheWVy OjwvdGQ+VR44xm77F6Uu IclpGzy1HYMxMNT6lXY0 rG3vWGOvBSzih3C4qQY2 X4RahqUtxm8ij2vh YXB (more content not included)... [facility] C Throaton 03-03-2023 C Throat Ordered by Discern. Normal throat jonny isolated No pathogens isolated [facility] Comment on above: Performed By: #### [id number] ####[facility] (DEFAULT)[address] [place] [address] .QC SARS-CoV-2 (COVID-19)/Fl u/RSV (GeneXpert)on 03-01-2023 Internal Control Pass [facility] Comment on above: Order Comment: Order ed by Radha. [[id number]] Performed By: #### 6 [id number], [id number], [id number] #### [facility] (DEFAULT) [address] [place] [address] COVID/Flu/RSV (GeneXpert)on 03-01-2023 Flu A (GXpert COVFLURSV) Negative Normal [facility] Comment on above: Performed By: #### 6 [id number], [id number], [id number], [id number] #### [facility] (DEFAULT) [address] [place] [address] Flu B (GXpert COVFLURSV) Negative Normal [facility] Comment on above: Performed By: #### 6 [id number], [id number], [id number], [id number] #### [facility] (DEFAULT) [address] [place] [address] RSV (GXpert COVFLURSV) Negative Normal [facility] Comment on above: Performed By: #### 6 [id number], [id number], [id number], [id number] #### [facility] (DEFAULT) [address] [place] [address] SARS-CoV-2 (COVID-19) RNA MILY+probe Ql (Unsp spec) Negative Normal Negative [facility] Comment on above: Result Comment: Perf ormed by PCR methodology. Performed By: #### 6 [id number], [id number], [id number], [id number] #### [facility] (DEFAULT) [address] [place] [address] ED Clinical Summaryon 2022 ED Clinical Summary [facility] - Emergency Department [address] [place] [address] ED Clinical Summary PERSON INFORMATION Name: LIA DESAI Age: 22 Years Sex: FEMALE : 2000 MRN: Acct#: Visit Reason: Cough; Throat pain; COUGH, SORE THROAT Arrival: 03/01/2023 14:12:36 Discharge: 03/01/2023 16:04:00 LOS: 000 01:52 Check In: 03/01/2023 14:12:36 Checkout:03/01/2023 16:04:00 Address: [address] [place] [address] PCP: Provider, Unlisted PROVIDER INFORMATION Provider Role [...] verbalizes understanding of instructions given Comment: Normal [facility] ED Note - Physicianon 2022 ED [...] Resolved Disease caused by 2019 novel coronavirus ([id number]): Onset on 11/23/2020 at 20 years. Resolved. Comments: 11/23/2020 CDT 16:07 CDT - SYSTEM Problem added by Rule (IC_COVID19_AUTO_PRO BLEM) following 2019 Novel Coronavirus (CoVID-19), MILY L from Nasopharyngeal Swab collected on 22-NOV-2020 16:44:00 EDT tested positive for COVID-19. no history (312667011): Resolved. Contact dermatitis (71511575): Resolved. Pharyngitis (6563835540): Resolved. Cough (80814630): Resolved.. Surgical history: Tonsillectomy and adenoidectomy (343439992).. Family history: No family history items have [...] any worsenin (more content not included)... Normal [facility] ED Patient Summaryon 023 ED Patient Summary [facility] - Emergency Department [address] [place] [address] PATIENT DISCHARGE INSTRUCTIONS Patient Information Name: LIA DESAI Age: 22 Years Date of : 2000 Reason For Visit: Cough; Throat pain; COUGH, SORE THROAT Arrival Time: 03/01/2023 14:12:36 Primary Care Physician: Provider, Unlisted Attending Physician: Tmo Smith DO Comment: Visit Diagnosis: Diagnoses This Visit Asthmatic bronchitis (J45.909) Cough ([id number]) Throat pain (889774104) The Pharmacy at [facility] is open Saturday through Saturday from 9A [...] alcohol and/or drug addiction problems; contact the [facility] 29/10 Crisis Hotline -Text 9EUQL rw [phone]. If you received any narcotics, sedation, or [...] and treatment you received today in the [facility] Emergency Department were for an urgent problem and are not intended as complete care. It is important for you to follow up with a doctor, nurse practitioner, or physician?s activity assistant for ongoing care. If your symptoms [...] so we can reach you if necessary. [facility] Emergency Department has provided you with a complete list of medications post discharge. Please inform your assistant professor surgical technology/provider of your visit and for further instruction on these medications. Any specific questions regarding your chronic medications and dosages should be discussed with your primary care physician(s) and/or pharmacist. New Medications [facility], [address], [place] [id number], [phone] albuterol (Albuterol (Eqv-ProAir HFA) 90 mcg/inh inhalation [...] Acute bronch (more content not included)... Normal [facility] Strep Aon 03-01-2023 Strep procedure control Pass [facility] Comment on above: Performed By: #### 6 [id number], [id number], [id number], [id number] #### [facility] (DEFAULT) [address] [place] [address] Streptococcus A Negative Normal Negative [facility] Comment on above: Performed By: #### 6 [id number], [id number], [id number], [id number] #### [facility] (DEFAULT) [address] [place] [address] C Throaton 02-28-2023 C Throat Ordered by Discern. Normal throat jonny isolated No pathogens isolated [facility] Comment on above: Performed By: #### 6 [id number], [id number] ####[facility] (DEFAULT)[address] [place] [address] ED Clinical Summaryon 2022 ED Clinical Summary [facility] ? Urgent Care [address] [place] [address] Clinical Summary PERSON INFORMATION Name: LIA DESAI Age: 22 Years Sex: FEMALE : 2000 MRN: Acct#: Visit Reason: UC - Sore Throat; SORE THROAT, CONGESTION, BODY ACHES Arrival: 02/26/2023 09:55:01 Discharge: 02/26/2023 11:28:00 LOS: 000 01:33 Check In: 02/26/2023 09:55:01 Checkout: 02/26/2023 11:28:00 Address: [address] [place] [id number] PCP: PROVIDER INFORMATION Provider Role Assigned Unassigned Errol Ortega ED PA 02/26/2023 09:58:25 Birdie James PRIEST Nurse 02/26/2023 10:17:32 VITALS INFORMATION Vital Sign [...] verbalizes understanding of instructions given Comment: Normal [facility] ED Patient Summaryon 023 ED Patient Summary [facility] ? Urgent Care [address] [place] [address] PATIENT DISCHARGE INSTRUCTIONS Patient Information Name: LIA [...] to help relieve symptoms, such as: ? Svje-phk-aewcvyg cold medicines. ? Cough suppressants. Coughing is [...] other clear broths. General instructions ? Take fvub-pnn-xlpxbwr and prescription medicines only as told by [...] infection to other (more content not included)... [facility] POCT Rapid CoV-2 (COVID-19) Antigen/ Flu A&Bon 02-26-2023 Influenza A POCT Negative [facility] Comment on above: Performed By: #### 9 [id number] ####[facility] (DEFAULT)[address] [place] [address] Influenza B POCT Negative [facility] Comment on above: Performed By: #### 6 [id number] ####[facility] (DEFAULT)[address] [place] [address] SARS-CoV-2 (COVID-19) RNA MILY+probe Ql (Unsp spec) Not detected [facility] Comment on above: Performed By: #### 7 [id number] ####[facility] (DEFAULT)[address] [place] [address] Strep Aon 02-26-2023 Strep procedure control Pass [facility] Comment on above: Performed By: #### 6 [id number], [id number] ####[facility] (DEFAULT)[address] [place] [address] Streptococcus A Negative [facility] Comment on above: Performed By: #### 6 [id number], [id number] ####[facility] (DEFAULT)[address] [place] [address] Urgent Care Note- Provideron 02-26-2023 Urgent Care [...] Resolved Disease caused by 2019 novel coronavirus ([id number]): Onset on 11/23/2020 at 20 years. Resolved. Comments: 11/23/2020 CDT 16:07 CDT - SYSTEM Problem added by Rule (IC_COVID19_AUTO_PRO BLEM) following 2019 Novel Coronavirus (CoVID-19), MILY L from Nasopharyngeal Swab collected on 22-NOV-2020 16:44:00 EDT tested positive for COVID-19. no history (193966405): Resolved. Contact dermatitis (63162196): Resolved. Pharyngitis (5969412662): Resolved. Cough (50681745): Resolved.. Surgical history: Tonsillectomy and adenoidectomy (411015043).. Family history: No family history items have [...] collect, Neha (more content not included)... Normal [facility] [place] 023 Urgent Care Record [facility] ? Urgent Care [address] [place] [address] PATIENT DISCHARGE INSTRUCTIONS Patient Information Name: LIA DESAI Age: 22 Years Date of : 2000 Reason For Visit: UC - Sore Throat; SORE THROAT, CONGESTION, BODY ACHES Arrival Time: 02/26/2023 09:55:01 Primary Care Physician: Attending Physician: Errol Ortega Comment: Visit Diagnosis: Diagnoses This Visit Myalgia (M79.10) Other viral agents as the cause of diseases classified elsewhere (B97.89) UC - Sore Throat ([id number]) Viral sore throat (J02.8) Viral upper respiratory [...] and treatment you received today in the [facility] were for an urgent problem and are not intended as complete care. It is important for you to follow up with a doctor, nurse practitioner, or physician?s activity assistant for ongoing care. If your symptoms [...] so we can reach you if necessary. [facility] has provided you with a complete list of medications post discharge. Please inform your assistant professor surgical technology/provider of your visit and for further instruction on these medications. Any specific questions regarding your chronic medications and dosages should be discussed with your primary care physician(s) and/or pharmacist. [facility], [address], [place] [id number], [phone] dextromethorphan/gua ifenesin/pseudoephed rine (Capmist DM 15 mg-400 [...] their own, without (more content not included)... [facility] Coding Summaryon 02-22-2023 Coding Summary HTMLBase 64 CrnvpjwkKLa9yNg+PGhl YWQ+DL4XNODkF72szLZv jG9wE4NCRUcLOscnMGJW EJnANhBmlaBbOU7yySYv ZXJu IC8+YU7mYQIpGvdglPDj c7Q4rIR8Y94dwh3uGCry cBV6GJOtZnNiotiqa5jo jOl3EUoxJocpKrWh WGUvhN04HLX4pV43Ig74 kBMlfERhr3furUb8PoPn SRBqLJK7aIalCDomy0Eo FZPvC13liOFkn9U8 IGNvbGxhcHNlOyBlbXB0 cC7oLKkxlzpyw7jvqqoi Rmo3vu16yZKgh8P0eVL7 W9CnirQ5XLVwaSNf DhxphSVYyN3ydeqwg9pt fayvGmRcSGAjCPl3LTa2 NBJijVmmAaTfNO30RZL2 KJWqjcZtJ2TdOUOl eCssMfU8a0A0To8EU5WB IebfA4ITIPAIDPrylHD+ TL15kn25W8GsDwaqPhh2 FKTaQNN0rMG7vF6e HSFjDRkky1G3kAC8M7Mp xnAuuk3jy3okHJDpLCud Z85xnAXcr6F1KFKmqOI4 UMRksVptAxIuxJ31 Oyc+QJVexKauz5CvLtai n8vfq1vfwXu9XruzHTMa lfOftZouNBS1c3ZcDe0g WKMllML7tZT0kK2m HuJmBmC6VPqxH583PmCs oSDgKhnjF35pG8AgdXL+ EELnUcl2VSEtjObuUT4y A5MiEXJdbxwrbZSr sVitQE9sOGSemwxzMOAb fV7nAUFrJ6m8KpIlOwN6 RYdwB6WuGZKyfpevKy43 bU8kKnOzCrF9SBkz Z4JfffW5IOAdoLNzWTmn KDI5T82bc0F2SZRpGIQe PKE8vHG6lS6wrGwbdujd bGVmdDsgdmVydGlj BFsyFSzdD480IVVosGui PkNvZGluZyBEYXRlOiAg MTEvMTcvMjAyMzwvdGQ+ YYBsPZJ6wNckHHUy jLZbPUhsHm8rfLlxdRrk PT2zCPOmkpmzQRNggY5h VYVufLKihStuAT4yZBAj jpkah999ZiIfSFD7 IRFxcXSdQ9JuiU2fFiNw YHUsEPLfS2YwzLHqEZmw N402AKlmLkL9OHPonkAr E1NuRZZsyUelXoY8 q2K9Nl5Ok6YwwrpoN7Zd fNPbZzYhSupmJUo4U8Tc PjwvdHI+RJ94MPYcBU68 PHi3DXV0mPiwQYhc SACtR9JhpG4pSqCkBSXv ZGRkOyc+PHRhYmxlIHdp ZHRoPScxMDAlJyBzdHls ZB2zLn7eMZNeRSPo wEadvQPhIjKqu0lyQJBj NHhwOA7iiCshE0DyjUV9 LSDuo8t2Nx25Z48gA4No dXA+AFSxnEY4mTW1 nM9oIfVzGuC9DZfoU440 VjJjnAYsCdziq7yaf7wc aCn9CwJ5PQSokaLboRap AFS8u4UzSl59X34m IHdpZHRoPSIxNSUiIHZh sIrutw8tiP0wSb4+PGNv iIG8jJU7yF9wFuImTjB3 VCucG147PkCznTXf Qmkxg8ure7yofJn6DeIk IGHxcuCgaIdwJDB4d4Gy Fn47D3TfzRczu2FxGjm2 tn17hQEbl8T9xRB8 W2IxQNHzteheeKPrmLvx CV4vSFOiudqvECFnfE9w QEFtF1y8KqAfIjD6XBso J7PpgxF5BNUpvACm PHPajLMSqX3hqvmxp4je uupxWxSmNIEfVBv3KGj0 JJUeiLteNtFmGUH6EqH1 FSI0kYKspW2rdKpp nvcixZ2rUxa+OZK8wBOc sFYIHX9bMyyjuYL+PHRk YMI8wOcrSQbpECBaeB8h LFOkP9x1ArSqRmW5 PFncA6MlvfK9WVKsuCAj ADAtuKCSaC7gwsquo4fp liydCrCcEFUmCTe7BGj4 LWFsaWduOiBsZWZ0 CrJ0KXH4bSWoeF4kiFus zrxccP2vUzs+QmlydGgg WUJ6GZd9R5BsSip3RQUw lXxwHF7yyQQuBEso Yh4mjZlnmKpaDR5fGWSy bzwdp375ClVju9fsYCTs pTLsNTjtVQL2I19og0S3 UBCoTOYsJEB4iZU2 jG3xlQotusoqtCVuvXzm aiYdmUucTQmwYIldX511 DRCbbDswDhEqYLy8M6Ah Fkb7SYSqnTbuXL3d aTTtATmiRi5wtPxrcFuo QG8aHKLrnqpft224PtXw g3diHPPuoWNwWKhtEHL7 Z20zf0F3QBYmTTHh OGX8xUL5xZ9ykRmlnodo bGVmdDsgdmVydGljYWwt NExrF288PNGebJnvEqMa cFe7H4FcWpx1WJSk vRavFB2xcDJzDSpjPi2w eGwawSctVD5vSDVznsvl b007JaCxm5lvIMEyzSAg DWrkLYQ1R40ta9I7 TYQkQYIpDVC0iQD9pG0k bGlnbjogbGVmdDsgdmVy gHojZFmoNFwnG138AFVx cDsnPlBhdGllbnQg HVpuKMf4B3InHoqaaXF+ LY81PNGvNO77aHZdzLDe i8dxvIa2IzDnSTHaUHV7 tTipPFhfj2CjVIAt S14tuVPxk9V9XKDycWtb tKTkNaQtoOR7cV0iXWzd tvxbc0vblrcyHgbtp7ws ha35vC30I38yHQms ZHRoPSIzMCUiIHZhbGln vl2tmY7cJk1+PGNvbCB3 nLX6uE7bGBNhIzW8OHmp W134XcElgUJkNvwv d1hpw3ntrIq5KwB0CUFa lrElaMtfVVV9y7NcEx75 D06zVPdxGPJtOKDpJZPt GFCqxAsrxa5siB3b Ii8+NFXgfCF7uTK3oE5t FkTkDkO9RDggK663YjKp iYKuKldwZ78dX3BtfGX+ EETyKiq0ESCzwIfj EY3qiBKgVLmbIq3cJSN1 UeOwWyFvUDwyX8UdTJRh whawdlkjjHJ8NCTfHEHs aI48Ku6wdCceZJQy xCGTvO5xqhrdd3bnhujo LxIbARQgKGc0MEh3TYIe aLsjZrOsYGH3SqI8FTW9 mMAnwP1bdDgagagg tL1qJ7MtIMPzcpqtNg72 oE2kQeQoHfL7XOrsMzz+ A9sJJiUMXPsdN5kYQYJV TYuJSK1NSOqssPF+ TWZuHLD5oNppMJevIUUm tZ7oQKTeO2u8WpZnPlR6 IDhvW8YcBXCedrcqYo81 nE2bMrUzTiU7QWpp F7LsjoK1DYAjkBXgAWek UPW2V54jf5D9JULzPBWi IUV1xXW4eM5okLmgbdtg bGVmdDsgdmVydGlj XPpaPBnwM582JZNroAuw UmG9UoNbAcFuQVD8X2Yb Huj1APEjbKqlCC1myAJu AVvsKc7iaObyaJpc CZ5fIOTtwmqtVLGjxJ8z LXSszIItbIpoZN5zOGEd bmwcv721OkEoWMH5QFIp eKVkH3QpoA7tDgPq RBYzBVViK6CodODtSMfh Z830DClhQpL2SFWrgtAw A1BrPAVddNglCwV2c7Z7 Wb7pKAWXMRXdfahs dGQ+WOAhTRT8uGmuWYbt RSXtxG2jUGGhI5u3YmPz TiA2LNwtV8HePCOejpwd Ga05hG3rZwMjKlO4 YLozV1WfjnW4HIHfgSYu ZApdMFR9V77qe6L7HNVg CDPmTHB4aEM3eG9nwVkm bjogbGVmdDsgdmVy mTclSGdaLEyfD307LGPr cDsnPkZFTUFMRTwvdGQ+ IJAoPYJ0dBzyXOggAHZw fJ7tUMUoM5g4AkCo XgM2GSqtB8RlHZIofxvf If20gL3eUaMdNoW5TRkq J7XzkpQ9AIUouNZaXJdg LVV1I97sm5W2PXWh FNArZMI2sWO4jT9glCjo bjogbGVmdDsgdmVydGlj DCwnORbdF954HQJwnSsd Vd8QWD83IH77Z2Ud PjwvdGFibGU+PHRhYmxl IHdpZHRoPScxMDAlJyBz oAxnGR9rNd9nBYYvHPGp oQwrlMSiVyDnx5sw GHFlBGvcKX4qwNqkE9Si jTC9HXYku7x6Dh42M14f T8MtqUL+JSIctVB5uJQ4 cZ5bCoVlWpI9XPct R422ZtDewIZlJrmvl8qr d9nbtDx1PqDmBMMxadHu hZxpGYS2t5IbCi63S86l IHdpZHRoPSIyMCUi PLEeyQupiu2eqL1lFl5+ CIRmmHM2zPF5nQ4bWlSb XoM2AGfmH488TxDzgHAd UxgxA02lV6KebYO+ QGBjDde0KNVblNsmSU8g hFQrUKjzAy7tYIM6SeCb FxOiXTysG8GpMUBgzloo qedcsLV5PAIhTFDr sM35Ct8zkRenYx5dYHGt IRW8GGLlfOLtK9QqxJ8y VhXsAEMcEUUxQ7OubTZe VPtnV819GNgxMvE8 ENChkiTlX0DuMSDvkBui WfQ0a2A7Tt8JfJiwuKZd ZH4lGdFrHSt5P1CjXoc2 AMGmmVnlQD7mlPGc OQomIq1kqMwleStjTD5u QCLdyrkmg547QwFyp8em CDPvuRJsBSahEKR8O08d n1I4ONMtZZUoOKP7 dWA0wU1dxWiovvhrgLHt dDsgdmVydGljYWwtYWxp B856OVXdvTywZnTWKyg2 C9SbTwi3NRHztTye EJ7gbPEpNSqpFr4aqEnj wMyzLR9jPEWwllmny269 CgFnp8sjONJmnVQgCLjp ROL3H91wp1G9VQBg JEJfRCQ5qDX3jE5stYsy bjogbGVmdDsgdmVydGlj VLviOWbaG011XAUntSzc Nk1MPau2N3AxLta2 SXFccVgaPX1jdOBbVMzt Lb0myVycyBhwBB3pZSUp mtedx092MeLts7phEDVc dLOcNImcECA0O39u v7S3QKJaTQLqCEB9nDI8 sG6xtZosimjpjCRyzVgr tqKuhNheJQjgQRpyP027 IHRvcDsnPlBheWVy OjwvdGQ+BY58sq16H6Cg CibzSvf1PJFaVAW3zJP1 vK0sRKGyZVlsh4X3eGX8 M5ItekAlsv2zf3gj YXB (more content not included)... [facility] ED Clinical Summaryon 2022 ED Clinical Summary [facility] ? Urgent Care [address] [place] [address] Clinical Summary PERSON INFORMATION Name: LIA DESAI Age: 22 Years Sex: FEMALE : 2000 MRN: Acct#: Visit Reason: UC - Wrist/Hand/Finger Pain or Swelling; LT HAND INJURY Arrival: 02/14/2023 17:07:31 Discharge: 02/14/2023 18:05:00 LOS: 000 00:58 Check In: 02/14/2023 17:07:31 Checkout: 02/14/2023 18:05:00 Address: [address] [place] [address] PCP: PROVIDER INFORMATION Provider Role Assigned Unassigned [...] Therapy Follow-Up: With: Address: When: Regla Hernandez [phone] EXT: [phone] Call for family Physician Within 3 to 5 days Comments: Call for help finding primary care provider. Follow-up for reevaluation. Continue with rest ice and elevation using ice 10 minutes out of every hour as needed. Return for any worsening issues or any other problems. With: Address: When: [facility] Comments: [phone] DIAGNOSIS: Contusion of left hand; Left hand pain Patient Understands: Yes - Patient/family/careg iver verbalizes understanding of instructions given Comment: [facility] ED Patient Summaryon 023 ED Patient Summary [facility] ? Urgent Care [address] [place] [address] PATIENT DISCHARGE INSTRUCTIONS Patient Information Name: LIA DESAI Age: 22 Years Date of : 2000 [facility]: [id number] Reason For Visit: UC - Wrist/Hand/Finger Pain or Swelling; LT HAND INJURY Arrival Time: 02/14/2023 17:07:31 Primary Care Physician: Attending Physician: DORA JASSO Comment: Patient Education With: Address: When: Regla Hernandez [phone] EXT: [phone] Call for family Physician Within 3 to 5 days Comments: Call for help finding primary care provider. Follow-up for reevaluation. Continue with rest ice and elevation using ice 10 minutes out of every hour as needed. Return for any worsening issues or any other problems. With: Address: When: [facility] Comments: [phone] Hand Contusion A hand contusion is a [...] elastic wrap to support your hand. ? Ygzi-cio-sdcpemt medicines to control pain. Follow these instructions [...] or lying down. General instructions ? Take orhf-pxq-vnjtsvo and prescription medicines only as told by [...] provider. Document Revised: 07/13/2021 Document Reviewed: 07/13/2021 [employer] Patient Education ? 2022 [employer] How to Use Cold Therapy Cold [...] the area (more content not included)... Normal [facility] Urgent Care Note- Provideron 02-14-2023 Urgent [...] All Problems (Selected) Anxiety / SNOMED CT 71746622 / Confirmed Acute depression / SNOMED CT 0891052338 / Confirmed Chronic post-traumatic stress disorder (PTSD) / SNOMED CT 342598988 / Confirmed Pharyngitis / SNOMED CT 1048261802 / Confirmed Cough / SNOMED CT 61424036 / Confirmed Objective CONST: -Well-developed well-nourished. -Acute distress: No -Vitals: reviewed. SKIN: -Gross abnormalities: No NECK: -Supple (cunc-pk-jtwzh): non-tender. CARD: -Rate and rhythm: Regular RESP: [...] and Plan: Diagnosis: Contusion of left hand (HBH15-CG S60.222A), Left hand pain (XCM61-QZ M79.642). Orders Orders Patient Care: Brace/Splint ED [...] [Verified on: 02/14/2023 18:01 EST] DORA JASSO [facility] Recordon 023 Urgent Care Record [facility] ? Urgent Care [address] [place] [address] PATIENT DISCHARGE INSTRUCTIONS Patient Information Name: LIA DESAI Age: 22 Years Date of : 2000 Reason For Visit: UC - Wrist/Hand/Finger Pain or Swelling; LT HAND INJURY Arrival Time: 02/14/2023 17:07:31 Primary Care Physician: Attending Physician: DORA JASSO Comment: Visit Diagnosis: Diagnoses This Visit Contusion of left hand (S60.222A) Left hand pain (M79.642) UC - Wrist/Hand/Finger Pain or Swelling ([id number]) If you received any narcotics, sedation, or [...] legal documents With: Address: When: Regla Hernandez [phone] EXT: [phone] Call for family Physician Within 3 to 5 days Comments: Call for help finding primary care provider. Follow-up for reevaluation. Continue with rest ice and elevation using ice 10 minutes out of every hour as needed. Return for any worsening issues or any other problems. With: Address: When: [facility] Comments: [phone] Medication Information: The exam and treatment you received today in the [facility] were for an urgent problem and are not intended as complete care. It is important for you to follow up with a doctor, nurse practitioner, or physician?s activity assistant for ongoing care. If your symptoms [...] so we can reach you if necessary. [facility] has provided you with a complete list of medications post discharge. Please inform your assistant professor surgical technology/provider of your visit and for further instruction [...] This is (more content not included)... Normal [facility] XR Hand Complete Lefton 11-0 XR Hand Complete Left CLINICAL HISTORY: Left hand pain. Punched wall. TECHNIQUE: 3 views left hand. COMPARISON: 12/15/2019 RESULT: No evidence for acute fracture. No dislocation. Joint spaces appear maintained. Soft tissues unremarkable. IMPRESSION: No acute findings. Final Signed (Electronic Signature): Gavin Mahoney MD 02/14/23 5:54 pm Technologist: KELVIN PATEL [facility] Coding Summaryon 11-27-2022 Coding Summary HTMLBase 64 OvchdhrxPCk3cQd+PGhl YWQ+FQ5APIXrY69cdCOa sV7lC2WMGJqZDcfbTUWE JFpCYuPyhcKoRV4adDGj ZXJu IC8+BK2yYZFlSzpjzNTr y3E0xNI5C95wls6pWXgj dBQ0FRTvYlYmvcwvr3gx yMy1JQztWgmmBmSr LKNznU10NLH4gT15Jn31 hKDqyQFli4ingPl2KrQs YCGdCOC0iYuyPHjbw6If YWHlD42bsWMfx6I9 IGNvbGxhcHNlOyBlbXB0 kT3xFVoqkipgk0dnefkm Pcj2wy37tUPxr0D9pGS2 Y7UykjE8NGFcdFMb HdgvaNJPqY2hhhocm9ts feqqEnMmNRCnFMs7MRe6 WTYygUapAuEoUD58ZEA6 GXZqoiFsO3HdEULt zZfwYxJ8g8M8Il3YC4ZX SdquP8LDZDOCIEtbcPE+ JD13om54M8RoVaazSgx9 JVEuRBL7kDB7rF0m CGYhSJlem0E6lAH3B8Fx ujHynl2cz4ujMULiRTzl I04djPAfr6K0DRKkiSY5 CMCojPjkStZonV10 Oyc+HQEzmRaoh9TpXwkw q0njn8wddRo9FbahKWYy iaNyjUgoJWK7n5ViPv3h KPYohWD4pTX6lR9t MlIsFcS4WQbwU723FfQn bEJkRginN12cF0OwnQV+ DTKvWts9BJXftQpmZV2v A7KnPMTaugwzrTGx rGemSJ1vTUAwedkdNMFm dX4mFCEwR3z9PjXzPpH6 JVibF2OzVUAlxfgbBq79 wS6uVtMpKkD2LFgo U0EfveE7TMRxbDGwFWng JNH5B62jw7U1ZUOlGRMt TAI4fUM3cK1vrGwhiumv bGVmdDsgdmVydGlj JVjyIQskO360YMZjsMfh PkNvZGluZyBEYXRlOiAg MDgvMjEvMjAyMzwvdGQ+ NFVlEWV3nTqiSADl iFNdKLpqRu6ndWtrkImx TY5sIMYbuysaDEJrqR8v CXQneBFcyWenHM8qMKRq ekdmb091AfAcKRN8 RUBwyTUkK1WtuL6bRoNn JZNpARRlB7XksGFlIOdp O329VUesOmK8BESnypRe R4XgRGYjoPcjQmR2 z9W0Ow2Im2LlkfaiR9Tk dDScEcSvGbktYJi7F0Ll PjwvdHI+BW55GGIcFH90 LTd0ETE0jXjdZAzm DBJlJ5TycB1aXrVkUWTm ZGRkOyc+PHRhYmxlIHdp ZHRoPScxMDAlJyBzdHls IM6xMc5wDVLcNDCx xEpobKWzXnAhk3ftRPAm KRxkWI4ciNswD2StfWZ1 DIBye6k6Vx61Y34fA1Mz dXA+RKQelQB8aVQ8 zF7uOuGnDeF1TKejN524 FjVdbXEgWjzew1xco3lu vQm1SmA6CPUckzYgpHxv ILK6r6QtWu02S56b IHdpZHRoPSIxNSUiIHZh rQuxlr7rlN6dXy1+PGNv jBY3rUY5iW6hGrHbPwM5 HJrvR034EdYimQTr Xaqmq7dcd8tkoXm1JoOp FAJqvuRkbMbnIIK3r6Xi Bv79P0TrrPelr6AiHmj9 ea84aXErv4E0sMH1 I6LiJUFxdmpeeUYqzLry ZE0vJRMsbmieTDPusS8p OZMxH0j1DhDnBgF6RDah Y8ZdpwC0ADSteDGo DLJgfIUDgF1upfagu0pk vixtCaMwMCUjYCr3BJo1 EPEkqDheHzTrFEG5PoJ4 VPY8fCIcxB4vgNeo albeaW1jTrq+MBF5cPOk kNTVEO5bIrmcdEG+PHRk XNQ3pBzpPKsqYUCdnK3c HKUcA1t1BtEjGbR0 OMrcS9QvcoQ5GACpaYCa VOJqiEUXnL4uriwsj2ww qfgbHkPmFHOlZBz1LHj5 LWFsaWduOiBsZWZ0 QzT4FWM8dIPplU5ujMvu mgxorU9hJiy+QmlydGgg NUC0ITr5A9NtZvg5RVUn qDlgPO3ouXLbDOdz Se4hgPmpyLxsQP7bTGXs pchvl650GyYkk1cjDAHi eBHsVFmdKDC1H27bi1K8 ZDVsSBVsOQH2bJQ2 kA3fdJmswfneqELuwXtm orQzqCpgKAdsNPpbB633 BASrsZqsQqKpKIj7A7Oe Pkr9OECnwOgsNN0r zFOfCCpwLy9jsKujdKmw AH4hJWJruvcic172BpDb s4cqOTEhoRRoLRnbZHT6 A20iv8P9PEBaXGJh JCL0iYS4aU9jdXylufjy bGVmdDsgdmVydGljYWwt HXapM025CIRusOpoFpZr uXn5U8DhLts8BGCe wYpoQO6svRXmTDzrSz6l wQlebQikGQ6tUMCozmyp t585MxMxe4atVQEfdTBu UHatKYD7B88nf4T6 RYYbBEKhHLK4pIE9yV6i bGlnbjogbGVmdDsgdmVy bUyzAUrwFVdoH282ORCy cDsnPlBhdGllbnQg KQdpKDy8J9ZyZrtmrPC+ OI99HPQgNO56gAIrbNFy w4pbwVo4DtArOWZgQJK9 jDznEEste6EyUSFp O46eoXRqs6D0PWAydThf iNJtAfEgxRD5jU8eHRsp hvugl2yneyouOpcjl5rd ky02rY84E23uWTzf ZHRoPSIzMCUiIHZhbGln wy4jeF9jMa4+PGNvbCB3 vSW0mG5mGYWjBsA0JCdl G015EqUimKOwJnmk h1yfg5zdsFw0NjQ8NZVt tmHrsMivXNS6e7KiGs86 L58hDCedGZUoNWReUMCv HHBgbUbhgk0snE5y Ii8+WXDtlVA6eZQ9nG2s BeYvHvR3TPbcZ750ZwRa oNBkAfgaJ86cE7CcySG+ MJClAbm8RZDcnRje JA9mwTEnZXrkJf1vZJA1 KwVuTxIuUQvzF8GiCRTg mzsdvqxuyQV4BBAgAIHh oI49Pj3sbYngTRAd mINKzL7cjlnpi3pswgvf VlLhZNGoQIp0MAq7QQFg hChlHiDjOYT6IqM0VCH4 dNVnzY1vyFssenwq aL3fO4EwDQFzyrwuCd76 cY3mSqAoEsJ7LNewCtg+ Z3aEJmMAUAehJ9aKYPRV OCcGKG9BLEhxyDY+ OBTqOFE1jEcaTEkkJOZc oG0dSGIsH5f4GpHiGwG2 RYjgP2LwYYZpopiiJy74 bP7iIvXaFyK8OOkg T4CogdO2IUUzuJEgTCwj GKO7P54ew4O8KTNlAVBj KYO9kYD5eY2xrCpiatng bGVmdDsgdmVydGlj UTzaSFlwL964HYGsdUsv WhU8SbVfYzToKSY9Y6Gl Nul3UQKaoSyuGU4otESx XOfuSo1bwNzdlCgw GL7lOKBxcihqXKDxbQ2n HCTphOChxFgjKY6xHCCf thxwx068AeFeLFI4MDMh yHHpB0SggG7eOrGq RTWlUYFjE0UlsNIfWLbd S370CIesZeO8DYMfxtPi A0XoCFVslGzuEnF3s4C2 Vb7aTFLUPFRskznn dGQ+GZMyWUT2nRsmRMbu CGNraG1bKKMtG7g1MvJp VbW9TWydB9TrTLOdaxoa Yy04xV9yNyZgArG2 MGweJ0DeteY5NFUfpNUb SArbTGL2M98ey0G1SOLa XSSbKZC9eVP0hP1hhVjc bjogbGVmdDsgdmVy jKxdYXteOLhzY277QIQe cDsnPkZFTUFMRTwvdGQ+ CJNxCUC5kVvxUNtbBEXj fH2vKPPmV3q2QzGj CnD8XMchY9TsHYBwumzb Lf02oO7jOlPvLyG6YQkf U4AadjD4VAKdpHAyXSuu REB7S52tn8G7UGSt CFFaLBS3fAA9wP1wdAer bjogbGVmdDsgdmVydGlj TGzjRZsiK046BSQihGuc IaZbHZVzIU9fjKxn dGQ+HN76xe99M8SmTssz Mul3PCIzXYC7nAB6oT0v PSSuBYkzs3T3wUI2E6St odKbzj9ov3cpGMAa FTsyI34nzQFhk1N4UOKy tRK6OJVjoPmtFjSgzX57 Oyc+WWYevDlbs3NvFrbc e1ljq5ewlSx3HcTk GLMlsnNymZrrZNZ9e6Jo Zg96O10uAYvzAYJzSSTv BGNtFGBsmUbqew6pqW1b Ii8+QRUkkZF3wEH6 iC1sHfZuIvH3ECrhQ464 IyKqcMVtUqpbj7awn3yr vNa5UtTmDEUceqEryRfu QOU4j0GtYh90H4Kr bTguf0PxUmj7nh25sOFo h9L6uPD7H3JqIKMprdxa iHZjxVudTQ7yCCUiohzk QUDwkI7uGGBdH9l3 SvQdXmD3PUvvD9GuucM7 BXXsaTSdVXXivKICjG0q uhynu0tjepadZzHnSKLb IEi1PKa6DIXudOix RtQgLQM2UrM1KDN1wKSw lH4vpKcxkdqgnU3sFtp+ RSy1j6fzoOVsNF1aaCR5 IX94CU83gPNmf1R5 yHR0N8BlFISqvpvjsuyt yOQ1BUYrFQVffU77Qy3f eKofMj4kVMXeVJC8OTQg vFGkT2SauY2iPhZm OPGuQZMmK7FtzNPzBNha Y838QHwmKeT9GOBxziWo M4HdSKIclJoqZvL6s8Z8 Tw4VOA64CZ29QN23 sQPgb2J8zBN9M6BrEHZr dgwksirvhNR5EKOqKBBb eZ31Cq3phReqKg1wSENw IRZ6SZTefYXyP2Pa qP3aWpLnXERhPPFdL9Hc wQKpZRkoA278GJlgJmK7 BSCehqTuN2GzOBKizHwc ErC6g5O9Lp1YXd79 ZX34FR93bUFhv8Y4vID2 F6CsQFIdzbcsvamyzAP5 RFFePBCyqN52Ai6ypTeo Ee0gAIGvYZR7WZHa qXMfV9GozN4fDrErIQPv PUIzG8EgaTPmXTmfZ189 IMboFyY7BRWdxtEkN4Qt EEMkpEjkEuE1a3Y1 St6EJJwpipa5Z6ByRiuo dHI+QF60CQNaCX13iHKh kKOfc8ynzDd3TgIxPLCw TID9uKfzTYjbh5Wy ZXI (more content not included)... Normal [facility] ED Clinical Summaryon 2022 ED Clinical Summary [facility] - Emergency Department [address] [place] [address] ED Clinical Summary PERSON INFORMATION Name: LIA DESAI Age: 22 Years Sex: FEMALE : 2000 MRN: Acct#: Visit Reason: Hip pain; LEFT HIP PAIN Arrival: 11/15/2022 16:28:10 Discharge: 11/15/2022 17:02:00 LOS: 000 00:34 Check In: 11/15/2022 16:28:10 Checkout:11/15/2022 17:02:00 Address: [address] [address] PCP: Provider, None PROVIDER INFORMATION Provider Role Assigned Unassigned Anusha Palomo CNP ED PA 11/15/2022 16:30:26 Jayne Zuñiga PRIEST Nurse 11/15/2022 16:32:34 VITALS INFORMATION Vital Sign [...] verbalizes understanding of instructions given Comment: Normal [facility] ED Patient Summaryon 023 ED Patient Summary [facility] - Emergency Department [address] [place] [address] PATIENT DISCHARGE INSTRUCTIONS Patient Information Name: LIA DESAI Age: 22 Years Date of : 2000 Reason For Visit: Hip pain; LEFT HIP PAIN Arrival Time: 11/15/2022 16:28:10 Primary Care Physician: Provider, None Attending Physician: Bennie Yarbrough DO Comment: Visit Diagnosis: Diagnoses This Visit Hip pain (35778732) Sciatica of left side (M54.32) The Pharmacy at [facility] is open Saturday through Saturday from 9A [...] alcohol and/or drug addiction problems; contact the [facility] 29/10 Crisis Hotline -Text 4NOWY bu [phone]. If you received any narcotics, sedation, or [...] and treatment you received today in the [facility] Emergency Department were for an urgent problem and are not intended as complete care. It is important for you to follow up with a doctor, nurse practitioner, or physician?s activity assistant for ongoing care. If your symptoms [...] so we can reach you if necessary. [facility] Emergency Department has provided you with a complete list of medications post discharge. Please inform your assistant professor surgical technology/provider of your visit and for further instruction on these medications. Any specific questions regarding your chronic medications and dosages should be discussed with your primary care physician(s) and/or pharmacist. Medications That Were Updated - Follow Below Instructions [facility] [address] [place], [place] [id number], [phone] Updated: predniSONE (predniSONE 20 mg oral tablet) [...] Stop right away (more content not included)... [facility] Progress Note - Nurseon 11-06 Progress [...] low back pain. Patient was seen at [facility] on Saturday and was diagnosed with sciatica. Patient is to see her PCP next Saturday. Patient was prescribed Flexeril and Naproxen. [Electronically Signed on: 11/15/2022 16:49 EDT] DevaughnkhadarJuly DANIELLE [Verified on: 11/15/2022 16:49 EDT] aZra July DANIELLE [facility] Coding Summaryon 08-28-2022 Coding Summary HTMLBase 64 TylcsohyIIx2xXm+PGhl YWQ+IM9XHBWrK72qdUYm dX8aR5ENJInCJipeDYJB MWzYBlFsqkNwNR4guRBq ZXJu IC8+IJ3xDGEfVecovTWs k3N9fOS5D71vbi5aTTys jAJ3VJVkToYgwjvkb7vl gMq9NSymEyhrElOd SYKvxL71SBO9gC53Dy32 wVGweTIfx5edkVw7PhNn IYBbILO1wTioARjfm2Jj DIDuF73kzLYdv1X9 IGNvbGxhcHNlOyBlbXB0 uS3mIGwylpdoz4wmgfti Wic2av33tJFan5Q4lAB8 T0KyrnY0SFUatLNb DfsxiPBFxQ5mduqjs8gb almpJfItUMLpLJa4OXi2 EJPkuZbyQqSqOQ68TMP5 FJUgvxZzF3XnGNBy oYwmUxT0t9W3Xl9YK0WK FatoX7YVSLBOBUjjrKU+ AO33rm59A4IdScemEea9 WYPxLBM9xDJ4pZ1g YDQzRAhef8P5jPT9D4Cm otXjup4js1muUJAwWWqn Z03ylGMhg1M6TZJhrFL8 SPTmrHfwArJtwK93 Oyc+JXMdpKdan0FpDkev w8onu4qvvDd2DutdXJCz izIhfXmnNDT0i1FkWx7y YOEnwCN4sCW4hP3n ZqPhPrJ3BMjxF632KpCd tJHvNjyeJ56mN8BhlYV+ DCBsGdh2HXWjpXdiPH0y O5QjJDOpfidxxQCh sQtfHY5aIQWyfwgqNTUl lV5pPQLsZ0k9BvIzQmZ0 ELgtS4PdLRBrtoqoNr70 hU6mNkXfXhE0YPzn Z9HcppX6KGJqmQFlJGbg DPV5I88gp9R2KDDlPVRc BHX3pYE4xF3ntAefrdiw bGVmdDsgdmVydGlj QVdiLKvvU704DFGhbPvn PkNvZGluZyBEYXRlOiAg MDUvMjMvMjAyMzwvdGQ+ DEJiIZT9hIaiYVYc dONpCDdzDy4ygYkwyBie AX0jHGVgxkfbGCGhkT4i IVZidYBxxAkcQV7vFXJq ngpnq332EnImTOL6 LULqrASmF4LcjL6qYpQo BJJcEPJpZ7NrtOBjDVeu J791EMgcJoH8PEZlsmIb Y1DfNCGfvUpnDoI7 h8P2Pm7Vq8BaluvhP1Xc pMKgHuTbZietIMp3P6Iw PjwvdHI+SC67QWFcPE20 YMp8HGS6lBlzNFma XXUxU1BmaW2pWmFcGWUi ZGRkOyc+PHRhYmxlIHdp ZHRoPScxMDAlJyBzdHls BX5tHw5yPQCcHVRc aZqbuZLvMpFlc9kcPVOo CVvfOP9yfJldZ0JusKH7 OHHiw4l5Ap74S77yH6Ym dXA+BBXovTW9kHI7 vR7jTeVsKdD9OBuaW821 FcClzLEcQfluy4ril5wg gYn8UxM2LWFvqjLxvDaq OSA0h6SkEx45M57m IHdpZHRoPSIxNSUiIHZh mGcorj8keB3eSn6+PGNv uMY5fGI8kY8fUsAnGjJ2 HNvlS345TfPklVEq Wjwhb3zra6magZy8HdNj JREugbAsjWefKJR9p7Lj Sq04J3ZbeFvbs2KjAtr3 ip12aNJcw1Y4fOY8 V3HtFYXfgwuhwNHbrIlh ZY8oGBDhbqbnZIOllE2c ULPuV4m0ZxDjRoK0QMjx J1RtsvW0CSQxvEIe HPEyxSNJrQ6tybucz8xu hfdoImOfIOTcFBu9HEa5 YZKfrEctTsIhZSH2QzU8 YYA8pUZfzA2uoPdj htrltV5xUog+QHF4qDAg dMIKYX9aFxawrVP+PHRk JRH5zTkpLAjlNVLhbG4r NXNtP9x2AvUoNmY3 RVzhM1LruyK6BBQeuHCy LUOtbCYLcZ8oxggts7xh zqkfBsZlEKMsRWk2XXz6 LWFsaWduOiBsZWZ0 HfQ3NUQ9fGIneS5guTqh erxcxO6lIuh+QmlydGgg SVC5ZXf9M4EvIso1PYAw jCxvQE4ybPMdDPwd Rj6qoHyemPdeTW6lXRXv yyafn768JcZhf0ghSRNh cROoUPccUOL2V89be1J4 UHHhAKSxWWW4lCV3 zY3uhDxawaojhIDdmFzv uaVlaDauBYbaECltP191 XFTnjCqgOgWxKUy6H1Xk Ciq6BFFshCvuRY0p aJPsZFcaFr4yeBxhgOye AW0oRPAaffyip731WzGw l2kuJIWdzAOgJAcnLBL4 J69od7M0JIMhWALv WBK1aTA7wN4osLykyiyo bGVmdDsgdmVydGljYWwt XWnrM852DQEclLeoHpWy rIr2C7PxXrc8PKRz lRouYI2xkFNhPQjjZh7u rKdpkHswLJ2gKNNfemuz l425VcCdr1hzRRDciIZs GEzaCFG1H12mu8K1 YRJwGNMlFAO0mON9uT0i bGlnbjogbGVmdDsgdmVy kTnpDAcuNIefK922DOCr cDsnPlBhdGllbnQg EHxwPGi6F6GaBaxwhEW+ BR46MMGlIA06lVZgjVRd y7eedRl4VtZfKZNjSRK2 xMsvBEzwa9MaCYBm B85pqCCuu2A7SMOnrAod bYKrCxBsyZI5fK9kXGju qsvwy9bqftwjNfqmm2vx ht10gV29Z70rCEim ZHRoPSIzMCUiIHZhbGln vl9lgK6fKw1+PGNvbCB3 tON5gR4gBUIgJlI9NLeq P850NbRvfRBzNhzu m1fnp0ujcQs2EfJ1UVWg fmQziGlsMVB5v9YaIs24 I66iVIkiWOSiYOFuGLSh FRJrpDwjxl4ruO4v Ii8+AMZkrFL4eFQ4lP5z JzThKrJ7WYnfT350KyZq pHMcIhfhV81fG0JooEI+ HBFnOdw6LYTwcKog CK2leLLjMJtuPp4wKFT3 EpYyPoNsHIblF3FvKVLo gmocugcsrVW6NTVkWWPc pN20Xx4vmCksLEEk eJVDgL1foybmd1cfcfug GqVvLEMoRFr3RBq9MTXf sNaxXvGoGRQ8OxS6QBD1 qYRciD5ieYkpemfs nZ5wX9YxDPGcmbrwEi43 hE6jDsViCuL4WVegGbf+ F6cLPbCGDBqcQ3zOSJXP WLjBIU4HXGhxbUU+ DFBlHQA2bVyySAchISWe kA7yRGJsI7b6DgIqTzL4 EDvjD1WgBIKnpkdkCm64 wR0lGkRsSnA1JRtv U4EnfjV6AAGklJJbAEtd QKG0E65hj7R0IOSvACEn MXY9yFY3cT4uoDldtxbp bGVmdDsgdmVydGlj OHngVLrtD538XNEqwLob CmA1BlEpQhUgRLM6G3Js Wom2MNLczRpaZT0wzUTy DGymFw1tsJvauTgp IS7sAEBywduaLRHqeK4g NVLzdWAizAimQJ7mRSVt wptqq282OjEuEMP2IOQk sZPzF9FxqU9rGsGf KPSnVHBkZ9ZrbWKcXHov L133FSvyEwF1QCYbuoGx G1UiTHIxgXdvQzU3b8Z0 Yw0gGACUPSMwalpq dGQ+MILuTAN1wNglUHto XOVgsP5dAVXmR8b6WjSz JnR6CQgsS4KgEGKaoygs Ps86nG8qFeYbEbS3 WAtnQ5ScvwJ9GRUvbXUu MDgxOIL7J15oj2D6BTFb SEXgMVC0wRQ1tM7kmYbo bjogbGVmdDsgdmVy aAahPIiqAHtwW694AOHn cDsnPkZFTUFMRTwvdGQ+ YNUlJJC2gJtyOJrvXPFa hX3sGELmB0t3QwUj YwC3WUuwO4PnCBHesmfn Hd20eT1qLqRyAsF6TIps Z6WkazZ7IWGiyEByXQwe GQN5P99cm3J9EKBq YOLlZTV6sVB0vS3obVou bjogbGVmdDsgdmVydGlj IJsoCPkwQ757QWQueAph Lz5IVV77AG03X6Gq PjwvdGFibGU+PHRhYmxl IHdpZHRoPScxMDAlJyBz sIjjZY1zLi1zTOWrMTSr gXstiXErRzRsj6eq NJEiEOotVC0zcVasA4Yo nGY3MDFru0s9Xm48K82n W2NjjTV+MTYhdIP6gBU9 mY6zSrWsWaS0EOfc J227UyQxoUOjXkxzi1bp b5ankEo6AlAnRMArqqRa dWirYOF4e4XeZm93J23r IHdpZHRoPSIyMCUi NAUpvKktez4jlK8sQp9+ OOHkrJI8hGR5fE5tJoAo CyR1YMkhB361GpYfdQPd UuqyR62zG3TpjFO+ KBToVhp0QVKopElhEU5h gZKbIWxhTt9eYCI3CvHr EgWhQQkcY5VfHXCcawvd vktiwDT0EEGaILWn vU28Kb4yzXtcVb2wPTDw SHB1WJEcpKIyA1LdfA2o OxOoHAVtATRjO3IrhLOy UCfuA585FVgfNjJ7 SVRbweMhV3IaRGKgaBer PeT2b7X8Bg4RyWncsZOi AI8yGkJdLPt2I8GcXcc1 WACtdZpkQL9kyVKj TQgqWl6qjSekyRpoOT5v JDWfjrzax247RaQuu3ta CQPsbQHcUBxyRHR5C57p r5K0SSGgJPWvDHV7 qWT0aY5yuAillmjjbOAa dDsgdmVydGljYWwtYWxp I473XCRiqLibIzONPxm1 V8PqLog0GELtpHav OO1pmYHxSNhlWe7dlTqv rUivPT9sKMIiwqehc411 OqOeg2xwYAFlkPZpESvb AGE8D26jl4G8FIVs LOAqDEK3cYP1dJ2vuHmo bjogbGVmdDsgdmVydGlj SCkaWOoeX584XSQwrGxv Zm6AOcb6B8UoVfc6 GKWqwNzeMF2caUEzGQlg Ak7skXltxPscMP2zCCPe kgkso799RaDfg3dpHNPf fIIfPMpwMQZ8T52a z8A5LUKnKWGtQJT8mZW3 nZ3pfFsrvvfszOLxrYni joQbnEemOYhuZAjxT198 IHRvcDsnPlBheWVy OjwvdGQ+YJ79nc34Q3Qr NydbNdj8RSUxBNA8wSY0 vH1pMNMeQDchr4K7gNG9 D9CzdzAtfz3lj0sy YXB (more content not included)... [facility] Physical Therapy Noteon 05- Physical Therapy Note [id number] #[id number] Normal [facility] hCG Quantitativeon hCG Quantitative 3.0 mIU/mL High 0.0-0.6 [facility] Comment on above: Result Comment: Post -Menopausal Reference Range is: 0.1-11.6 mIU/mL Performed By: #### 7 [id number] ####[facility] (DEFAULT)[address] [place] [address] Coding Summaryon 08-16-2022 Coding Summary HTMLBase 64 XvywwqfbUHa9iUd+PGhl YWQ+HC4TAZTbK18geFPq zL7FG9uNTT3ARIXLSYVW DQ5ZQO1pmLS7PFzjA0Ae biAv BxhskGFfFN95CVi0EUQ3 kElnPDtdpY4jqKCeR7a3 WyOgAV51eO85XGyrYRCd RrI1MxRuiizcnMWf W6cpYtYfrPDvCvy+PHRh YmxlIHdpZHRoPScxMDAl UnYcmMerXL9nPp9aWTOf LWNvbGxhcHNlOiBj e9zeZMLkGBebTT4auZgx T3PhrTE2VRCgs8z5Lo19 dHI+QNMdYKJ9mMsaQKjs f938BhYjc9uvCVA5 gTPiFErrDEY0E99fk6D4 PWXfKOFlOZR4iBJ7vW2w sQtgyaouJ7HsaAIqKsI3 GPY5bWOelG2bfHfr nsudzB5pXhu+I72EMF2F SMMNBI3BDjg3I2FxWvwx dHI+KO75PDWeHA03lCJq aGXmd7dwxDf6AkWv HCJbIWV2zFtkTMnix3Tj PSWhD56prGSki8B9MRDg tOxavJGjMnJnvFG6kU2c XKvvrvhup7aofqfg Noszl1eawl13mM61K81s QXhqNIPfHSH9PFOhDCEn mJfqbt5mdF5qOr5+IDxj s6owc4reiHc5EzRa EJDkwoEkyGknPRB6x8Ma Qa10B5DqsHxab5PrJeh4 gv97eLAnc1S9rMI0UGvu NXLvkO6wNJfqReW4 XHNuSwCgkO14wBQxOWlu Ht7fcXuolDsjZD1hVYQy ulqcTAEnhL5xIDHwfAGt pAfjSG6iEKZhfrjn p216JpSxXXB4FCIylQEo Z8OjxH9xIkUoCFFqTPSv U9RzwBBkWChmV079YMvd GpX3RCHtbwCmL1Tp FXYljMgjQzA3r6U7Dh4V d2OftdyhPYV4WQwxUNC3 YsMpZcRqDaP3U0LqIrg5 LFHzzSccOL5tB0Ki OQPxjvgckkkzcNY8VDLr JGIjuO42nPRlSKdzVt9l e9B8c833FPVbAWPiwH00 Fn1ruEeuKBBxxTMQ vR7nlqfbv9toudsmYaKl VGWpRNc3PHt9KQOlqPol GeYpGCY9HsB7NYY7lUOq dQ0ewLqncihstN8u Oyc+D87fnY7oYBK7AUN7 fhvvNUNlhgMqCF12EJ28 S2DoYvzciMWnbDN+PGRp pmOdvPdrUH5eBgZk p1wmf3FhMNhtN4RwUXYu GXjrDrx2WSByULU1iLD9 kZ8kTHMhQBlzf2L0xKR5 F8StzkQhig5tq9vx JWXpNFfmB49skBBlc6X5 YCUhcLW0JJFrrXxwPmFt tI08Svz+FZXpfXcmq0Eu Ydeup9ckj5sdcEi5 IjMwJSIgdmFsaWduPSJ0 x1UsFr93B56vRVjtPQAe SOUqNHIyOMMazSierd4f lG1bUt9+PGNvbCB3 tVA4wU4hRVMaVwO1LYer J323OnIgoXBeDvizw3pu g8gajKs9XtEsYMAcxlKq uQwfDGS3s6NaDn34 A78hISbeLSNhJZRbLMBz BLGldFicky5ocK8dDt0+ BN8zt9zhtn78eD74iZR+ DSVqFUE4sTbrPJaw QKMqgQ5hRZjaWxX6TERc PsLtfS78rROuMOnqKa8q pNmzaPoiEY2kUCQpyajm v657TrSfh0wqQARi dTGhVUtxQYD5G27bf4E0 BXBaWKYaORY0vNX9dJ2h bGlnbjogbGVmdDsgdmVy uElaRSnuNAxdY816 IHRvcDsnPlBhdGllbnQg EkGyQWv1X9XdNzc5EBFh oMftIC4wcLPjQVhdFg0v lZzjhDmxKH8lXUSo cuomd870IsYnm6riANHl eECcYUqfFCQ7T00zq0Y9 ZYFsSRFuBVZ1yIS0bW5c bGlnbjogbGVmdDsg ckRevKewEGssCZrvX601 IHRvcDsnPkJpcnRoIERh xLR1MM59RC51gMSrv7J3 sDE3W8ZbAXQlivsa ypdvcWU4WNTbLQXqvY75 Cw9meTboZq2tTCMqPWH3 EQWzoRTqI2LapI0vWhFk NMAzKHNjA5FuqLFm XYplP111LNjwOqF6WUFw vdJsX0PfXFYwtEciMpL7 r2T9Ir4LS0W0OR54LB38 dJCfs6D6gSE3O6Cq PPRvzjjstyinaHQ3QCOd VWTfcY68Pg2dyAsfPt9u HMTgNYF7HWKqxWSzK8Oh mO2vDfMsRWSvOVWh K5AskJUpPCqgL439EGjb QtM4SMSvanBoH6ShAIIv zVxoNgB9f2C0Pf1UZPf7 CZ92TJ80kXAwj3O0 aNA3X6AiZNUnryrnagyy aZK7DRAwOTRdyP96Nz8c zQlpDr4fALTrWAW2DEJp nUTsG4ShbO6fXuKe RCAyARFqT6SzsTEuZJdd P187AQdwBdW5WMBmwsHp I0EtHWNhgRbmMfX5v7A4 Wt1HWODjLZ71CYF0 wVU1AK03WX46B0LpQqzq dGFibGU+PHRhYmxlIHdp ZHRoPScxMDAlJyBzdHls JV1kBt9yGVXeRUFk mJzjvPTxCeLzy0bgCIMb UUopPT4zsLucK9HdwOH0 PYEjx4m1Ex97H93lL4Lu dXA+SYXekXW0sKB9 fJ0sSyVvGmP3WLgjW299 DmOqcTLsFopef9cev9km pEp6CnF1SEWqqpHxuXuv MQP1m5AxIn54H11s IHdpZHRoPSIxNSUiIHZh eExbsa8afM0xXy5+PGNv qLH9eJP8xP6iOzDhBfK8 CHhcG922UhVqaYKh Nbptf7aqt2btiHr2XvNw KWOplgMacAllRWV7j3Tc Og12T9CkxNwhs2LoDll0 nh02aKPyh2W9zRG9 K5SjBHQurlcxuPNprAxm GD3xAORhpjsnKLFodI6d ZDSrF8s7HlDvVkX6VKbu Y8UjguC8WUFgfGLu CZnvNDM0U07hl0L9BHZt SBNhBOT3fFX8gT2cyNrh bjogbGVmdDsgdmVydGlj LQkzAXjsT219GLFd mUmdABZszN8iWVLpaGZs iUpgJL2xWBWaunsfHfrF TEJFUlQsIFNIRUxCWSBM ETZQXiL1B7PrUrv3 LHZhfInaDM1odRZtPZqv Ug1reShlpCetOY6jAHSc xbupPKPotV3nCVYmeWIe jLkuOL0dHNNdmsgl d639EeLxORI7LYXlmPOl R3VulI3eWaNwTNIlONAo M3TvjHLnTJudB829IWor XvR1ZELnroAvQ8Jj RKUodHxaIsH7k0Y0Ga1i Bn3kMk2xWSDxPV64WU81 wTAyw4L8uFU6M8ScFDJo sifheuuspQV3CYSk WSVgkA61jDWnCIhzQl7t t1I6j832TINqUFAohH74 Re9fgHctULXcdXFTwJ5h vsxry1lexyuyOhVl UNTnIUl9LSc1ATSqlTbc SxDcMGS8QbX1OEC6oSVm fZ5kaFiervgwhQ7pSys+ QtKlBPHncqE8Y8Nm Yzc8MZPssRyfXX5ynCTo WAlmJx0xxRdtxDzsRD1p SNOsiixoJJLgiQ0bBSOm qLErbDgtGW0nDDPa mtaju954FjTwCKW3BHYp vSTcM7LxrM7mVrDoOKVt LPFcL8HfcVFjMUznC110 DBamJrY9KSIgdtHz Q1QmCQNqyWstEhS9q8N1 Zz9PRN9GVZG9F2ZkGry7 OGXczJziHH1enSQyLXtr Qb2joXkroCggHR8o BAEhuoxaBLCygV7oCSGl iAYdeTrdSY3mLHJtdwnd o396ZkBlUGC2THFtlWWz Z7XbhX6oTdJuTRTg EBYqO1UxcRTxPUzoJ745 GHyqDfU7ORXfwxWfP0Av QHZziFqyVmW1u3Q1Ot7J aCNwD7NrK4k5A2Jx PjwvdHI+SX49JXRoJB75 jERnlFYsw9mkmVr0OwSl QSZdPDW6uAygGTchr0Xt MHGrM70qnZQwu1Y4 IGNvbGxhcHNlOyBlbXB0 cY2oWVwkqcspy7tcdmlx Jmeeb7msqz95hS17C68j IHdpZHRoPSIzMCUi CIMyzVcvmu2stB2qGa0+ ZFIkqBN6iIY1mD6vAfZh MxS7YJoqA828QbBosPKp Fumes7sbf3okeFk0 IjIwJSIgdmFsaWduPSJ0 f5PnBk57Z57lRGyrIXFg RINqMFOvPOLsoBjkta9p fO8fPs7+LP2my5ak hu12tW32vEI+PHRkIHN0 cEduZTtfPKNrsX4uCTvu BzE1MKDrRvUewG40aXNj OEyrPj7cdEveiRwk AN6zRKOejojef921DnKr l4uyBZZunVXiFVsmXTB5 W46in4B2AQUgSHTyIAY6 nIH9pB1wqBtexmou bGVmdDsgdmVydGljYWwt OKwkY047ODGjgHomKxRt jPTwF9jqsvBJOV4yWlbg dGQ+BZWtBXA7xBje SDegPHUqcM3lYWOgM8z6 FrHrRlV1VKhjL9UgomU9 ANVysKSlVAVidSFCcX5i zpwrn1kewtlmRzAb VFAkCUw4AWu6XRZoaRkm ZfPqPEB9NsI3LYB7wRVm yJ7cjVmoecspqH5uCvt+ RklOOjwvdGQ+PHRk SMI5wCseLIzfWDMrvB7u ALIhB0j0DtOuVlV7NXev M9DdvdN2FPKmgADeMMYm sGDQaX9wfzvgt0bj qyxbGcWxKGTrHDc6USu2 LWEwwEmmTlClWPP7ZhM3 TRO4sCYkiB1jgDbyribp sM4iKqz+TVJOOjwv dGQ+IEDaJEK3gWknXXsp UKQzyJ9gQWIdX6x2CnIo LjY0QRxrJ8AlrsZ4IFUb eKNxQOUmePQTzN3l xhtox1tpxdqoDdUoTTKg OCf4NKi4XUWdsKgsPnSg XBC4XnX6RFL6zAIkrP1g fQmpvscxvO3pXty+ PMR5ZHZ2KX99JJ44X9Uc PjwvdGFibGU+PHRhYmxl IHdpZHRoPScxMDAlJyBz dTbtZK0bMj1sVBPs LWN (more content not included)... Normal [facility] .Auto Diff 08-11-2022 Auto [place] % 7 % Normal 12 [facility] Comment on above: Performed By: #### 1 [id number], [id number], 7193672, 9058295, [id number] ####[facility] (DEFAULT)[address] [place] [address] Baso Abs# 0.1 x10 Normal 0.0-0.2 [facility] Comment on above: Performed By: #### 1 [id number], [id number], 3263533, 1260776, 63719102 ####[facility] (DEFAULT)[address] [place] [address] 46527 Basophils/100 WBC (Bld) 0.8 % Normal 0.2-2.0 [facility] Comment on above: Performed By: #### 1 [id number], [id number], 5963697, 5697369, 90062158 ####[facility] (DEFAULT)[address] [place] [address] Eos Abs# 0.0 x10 Normal 0.0-0.4 [facility] Comment on above: Performed By: #### 1 [id number], [id number], 1712832, 9485003, 23904150 ####[facility] (DEFAULT)[address] [place] [address] Eosinophils/100 WBC (Bld) 0.4 % Low 0.9-4.0 [facility] Comment on above: Performed By: #### 1 [id number], [id number], 0537030, 4744751, 03287276 ####[facility] (DEFAULT)[address] [place] [address] 23303 Lymph Abs# 3.0 x10 High 1.3-2.9 [facility] Comment on above: Performed By: #### 1 [id number], [id number], 6090938, 6304891, 58577608 ####[facility] (DEFAULT)[address] [place] [address] Lymphocytes/100 WBC (Bld) 25 % Normal 14-48 [facility] Comment on above: Performed By: #### 1 [id number], [id number], 2128929, 2402815, 26413936 ####[facility] (DEFAULT)[address] [place] [address] 26809 [place] Abs# 0.9 x10 High 0.0-0.8 [facility] Comment on above: Performed By: #### 1 [id number], [id number], 1848555, 1150366, 17579257 ####[facility] (DEFAULT)[address] [place] [address] 26279 Neut Abs# 8.1 x10 Normal 1.5-9.2 [facility] Comment on above: Performed By: #### 1 [id number], [id number], 6223253, 8742142, 91759642 ####[facility] (DEFAULT)[address] [place] [address] 29518 Neutrophils/100 WBC (Bld) 66 % Normal 44-88 [facility] Comment on above: Performed By: #### 1 [id number], [id number], 5056969, 7342888, 72720824 ####[facility] (DEFAULT)[address] [place] [address] 73241 BMP Standardon 08-11-2022 eGFR Non AA >60 Invalid Interpretation Code [facility] Comment on above: Performed By: #### 1 [id number], [id number], 6658312, 0800939, 50648727 ####[facility] (DEFAULT)[address] [place] [address] 30808 eGFR AA >60 Invalid Interpretation Code [facility] Comment on above: Performed By: #### 1 [id number], [id number], 3604337, 6044732, 12527235 ####[facility] (DEFAULT)[address] [place] [address] 84812 Anion gap [Moles/Vol] 18.5 mmol/L Normal 5.0-19.0 [facility] Comment on above: Performed By: #### 1 [id number], [id number], 2038073, 1849882, 17963307 ####[facility] (DEFAULT)[address] [place] [address] 98581 Calcium [Mass/Vol] 8.7 mg/dL Low 8.9-10.3 [facility] Comment on above: Performed By: #### 1 [id number], [id number], 1316864, 0018719, 65453571 ####[facility] (DEFAULT)[address] [place] [address] 64809 Chloride [Moles/Vol] 100 mmol/L Low 101-111 [facility] Comment on above: Performed By: #### 1 [id number], [id number], 5895140, 0053351, 59121605 ####[facility] (DEFAULT)[address] [place] [address] 51452 CO2 [Moles/Vol] 24 mmol/L Normal 21-32 [facility] Comment on above: Performed By: #### 1 [id number], 4280706133, 4342411, 8050133, 65517861 ####[facility] (DEFAULT)[address] [place] [address] 65743 Creatinine [Mass/Vol] 0.57 mg/dL Low 0.60-1.30 [facility] Comment on above: Performed By: #### 1 [id number], 0436850454, 4008566, 1564705, 12020835 ####[facility] (DEFAULT)[address] [place] [address] 41914 Glucose [Mass/Vol] 98.0 mg/dL Normal 74.0-118.0 [facility] Comment on above: Performed By: #### 1 [id number], 5328247787, 5367424, 3843061, 08485003 ####[facility] (DEFAULT)[address] [place] [address] 54439 Osmolality 274 mOsm/L Invalid Interpretation Code [facility] Comment on above: Performed By: #### 1 [id number], 8677238820, 5484416, 2537234, 29942654 ####[facility] (DEFAULT)[address] [place] [address] 89532 Potassium [Moles/Vol] 4.5 mmol/L Normal 3.6-5.1 [facility] Comment on above: Performed By: #### 1 [id number], 1549713521, 7064843, 3434148, 20212195 ####[facility] (DEFAULT)[address] [place] [address] 40399 Sodium [Moles/Vol] 138.0 mmol/L Normal 136.0-144.0 [facility] Comment on above: Performed By: #### 1 [id number], 9025976968, 6338227, 6606825, 29745553 ####[facility] (DEFAULT)[address] [place] [address] 71012 Urea nitrogen [Mass/Vol] 9 mg/dL Normal 8-26 [facility] Comment on above: Performed By: #### 1 [id number], 3545238940, 7263952, 5977107, 43905073 ####[facility] (DEFAULT)[address] [place] [address] 32699 Urea nitrogen/Creatinine [Mass ratio] 15.7 mg/mg Normal 4.6-16.2 [facility] Comment on above: Performed By: #### 1 [id number], 0262471819, 8658671, 2327529, 77779449 ####[facility] (DEFAULT)[address] [place] [address] 45873 CBC w/ Auto Diffon 3 Erythrocyte distribution width (RBC) [Ratio] 14.1 % Normal 11.5-15.0 [facility] Comment on above: Performed By: #### 1 [id number], 9039946029, 9639362, 6040876, 74156889 ####[facility] (DEFAULT)[address] [place] [address] Hematocrit (Bld) [Volume fraction] 36.8 % Normal 33.7-40.4 [facility] Comment on above: Performed By: #### 1 [id number], 7783239587, 3476036, 5656625, 99851554 ####[facility] (DEFAULT)[address] [place] [address] Hemoglobin (Bld) [Mass/Vol] 12.1 g/dL Normal 11.3-15.9 [facility] Comment on above: Performed By: #### 1 [id number], 8648401268, 5523993, 0719965, 41284143 ####[facility] (DEFAULT)[address] [place] [address] Man Diff? Auto Invalid Interpretation Code [facility] Comment on above: Performed By: #### 1 [id number], 8113473250, 7899283, 4435362, 02682351 ####[facility] (DEFAULT)[address] [place] [address] 42438 MCH (RBC) [Entitic mass] 28 pg Normal 24-34 [facility] Comment on above: Performed By: #### 1 [id number], 2644229453, 7274569, 8872405, 84336929 ####[facility] (DEFAULT)[address] [place] [address] MCHC (RBC) [Mass/Vol] 33 g/dL Normal 26-37 [facility] Comment on above: Performed By: #### 1 [id number], 0346394077, 1840851, 4850786, 31302749 ####[facility] (DEFAULT)[address] [place] [address] MCV (RBC) [Entitic vol] 85 fL Normal 81-100 [facility] Comment on above: Performed By: #### 1 [id number], 9323908562, 6888053, 2534759, 06770176 ####[facility] (DEFAULT)[address] [place] [address] 36989 Platelet 367 x10 Normal 138-427 [facility] Comment on above: Performed By: #### 1 [id number], 8710694288, 5593551, 1002920, 44581483 ####[facility] (DEFAULT)[address] [place] [address] 31381 Platelet mean volume (Bld) [Entitic vol] 8.1 fL Normal 6.3-10.2 [facility] Comment on above: Performed By: #### 1 [id number], 8051751534, 8166981, 9556192, 01211573 ####[facility] (DEFAULT)[address] [place] [address] RBC 4.33 x10 Normal 3.70-5.30 [facility] Comment on above: Performed By: #### 1 [id number], 9331210935, 5088572, 6786022, 78332594 ####[facility] (DEFAULT)[address] [place], [place] [address] WBC 12.2 x10 High 3.5-10.5 [facility] Comment on above: Performed By: #### 1 [id number], 1088019497, 0700244, 8822024, 80317318 ####[facility] (DEFAULT)[address] [place] [address] ED Clinical Summaryon 2022 ED Clinical Summary [facility] - Emergency Department [address] [place], [place] [address] ED Clinical Summary PERSON INFORMATION Name: LIA DESAI Age: 21 Years Sex: FEMALE : 2000 MRN: Acct#: Visit Reason: Vaginal bleeding - < 20 wks ; 7 WEEKS, VAGINAL BLEEDING Arrival: 08/11/2022 12:41:34 Discharge: 08/11/2022 16:30:00 LOS: 000 03:49 Check In: 08/11/2022 12:41:34 Checkout:08/11/2022 16:30:00 Address: [facility] [address] [address] PCP: Provider, None PROVIDER INFORMATION Provider Role Assigned Unassigned Adamaris Jaeger PA-C ED PA 08/11/2022 12:44:39 Arabella Romano PRIEST Nurse 08/11/2022 12:45:45 VITALS INFORMATION Vital Sign [...] Resolved Disease caused by 2019 novel coronavirus ([id number]): Onset on 11/23/2020 at 20 years. Resolved. Comments: 11/23/2020 CDT 16:07 CDT - SYSTEM Problem added by Rule (IC_COVID19_AUTO_PRO BLEM) following 2019 Novel Coronavirus (CoVID-19), MILY L from Nasopharyngeal Swab collected on 22-NOV-2020 16:44:00 EDT tested positive for COVID-19. no history ([id number]): Resolved. Contact dermatitis (22462555): Resolved.. Surgical history: Tonsillectomy (707828974).. Family history: No family history items have [...] quant draw (more content not included)... Normal [facility] ED Note - Provideron 023 ED [...] Resolved Disease caused by 2019 novel coronavirus ([id number]): Onset on 11/23/2020 at 20 years. Resolved. Comments: 11/23/2020 CDT 16:07 CDT - SYSTEM Problem added by Rule (IC_COVID19_AUTO_PRO BLEM) following 2019 Novel Coronavirus (CoVID-19), MILY L from Nasopharyngeal Swab collected on 22-NOV-2020 16:44:00 EDT tested positive for COVID-19. no history (382242960): Resolved. Contact dermatitis (17246191): Resolved.. Surgical history: Tonsillectomy (633020098).. Family history: No family history items have [...] % Auto Lymph % 25 % Auto [place] % 7 % Auto Eos % 0.4 % LOW Auto Baso (more content not included)... Normal [facility] ED Note-Nursingon 08-11-2022 ED Note-Nursing Patient walked into the ED with c/o abdominal cramping and bleeding. Patient is 7 weeks . Symptoms started today and cramping is getting worse. Denies taking any medicine for pain. Did have right lower back pain a few days ago. Was 15 weeks in may, had a miscarriage and had to do a D and C. Normal [facility] ED Patient Summaryon 023 ED Patient Summary [facility] - Emergency Department [address] [place], [place] [address] PATIENT DISCHARGE INSTRUCTIONS Patient Information Name: LIA DESAI Age: 21 Years Date of : 2000 [facility]: [id number] Reason For Visit: Vaginal bleeding - < 20 wks ; 7 WEEKS, VAGINAL BLEEDING Arrival Time: 08/11/2022 12:41:34 Primary Care Physician: Provider, None Attending Physician: Andres Duval Comment: Visit Diagnosis: Diagnoses This Visit Miscarriage (O03.9) Vaginal bleeding - < 20 wks ([id number]) The Pharmacy at [facility] is open Saturday through Saturday from 9A [...] alcohol and/or drug addiction problems; contact the [facility] 29/10 Crisis Hotline -text 4hope to [phone]. If you received any narcotics, sedation, or [...] sign any legal documents With: Address: When: addictions counselor Within 1 to 2 days Comments: repeat hCG quant in 48 hours and can come here or follow-up with CONTRACT ADMINISTRATOR Call for follow up appointment With: Address: When: Return to Emergency Department Within As needed Comments: Return if symptoms worsen Medication Information: The exam and treatment you received today in the [facility] Emergency Department were for an urgent problem and are not intended as complete care. It is important for you to follow up with a doctor, nurse practitioner, or physician?s activity assistant for ongoing care. If your symptoms [...] so we can reach you if necessary. [facility] Emergency Department has provided you with a complete list of medications post discharge. Please inform your assistant professor surgical technology/provider of your visit and for further instruction [...] may ma (more content not included)... Normal [facility] Extra Redon 08-11-2022 Tube Collected Yes Invalid Interpretation Code [facility] Comment on above: Performed By: #### 1 [id number], [id number], 3037646, 2138796, 07989646 ####[facility] (DEFAULT)[address] [place] [address] UA Xabvl8tw 08-11-2022 UA Amorph. Rare [facility] Comment on above: Order Comment: Urina lysis Microscopic order added on by [employer] Rules system. Performed By: #### 1 [id number], [id number] ####[facility] (DEFAULT)[address] [place] [address] UA Bacteria Trace [facility] Comment on above: Order Comment: Urina lysis Microscopic order added on by [employer] Rules system. Performed By: #### 1 [id number], [id number] ####[facility] (DEFAULT)[address] [place] [address] UA Mucous Trace [facility] Comment on above: Order Comment: Urina lysis Microscopic order added on by [employer] Rules system. Performed By: #### 1 [id number], [id number] ####[facility] (DEFAULT)[address] [place] [address] UA RBC 0-2 [facility] Comment on above: Order Comment: Urina lysis Microscopic order added on by [employer] Rules system. Performed By: #### 1 [id number], [id number] ####[facility] (DEFAULT)[address] [place] [address] UA WBC 0-2 [facility] Comment on above: Order Comment: Urina lysis Microscopic order added on by [employer] Rules system. Performed By: #### 1 [id number], [id number] ####[facility] (DEFAULT)[address] [place] [address] UA w Culture if Ind Standard on 08-11-2022 Breakpoint UA [facility] Comment on above: Performed By: #### 1 [id number], [id number] ####[facility] (DEFAULT)[address] [place] [address] Color (U) Yellow [facility] Comment on above: Performed By: #### 1 [id number], [id number] ####[facility] (DEFAULT)[address] [place] [address] Culture? Not Indicated Invalid Interpretation Code [facility] Comment on above: Result Comment: Resu lt created by rule GL_MAGR_ADD_UA_CULT Result created by rule GL_MAGR_ADD_UA_CULT Result created by rule GL_MAGR_ADD_UA_CULT1 Performed By: #### 1 [id number], [id number] ####[facility] (DEFAULT)[address] [place] [address] Glucose (U) [Mass/Vol] Negative Normal [facility] Comment on above: Performed By: #### 1 [id number], [id number] ####[facility] (DEFAULT)[address] [place] [address] Ketones Ql (U) Negative Normal [facility] Comment on above: Performed By: #### 1 [id number], [id number] ####[facility] (DEFAULT)[address] [place] [address] Micro? Indicated Invalid Interpretation Code [facility] Comment on above: Result Comment: Resu lt created by rule GL_MAGR_ADD_UA_MICRO Performed By: #### 1 [id number], [id number] ####[facility] (DEFAULT)[address] [place] [address] UA Bilirubin Negative Normal [facility] Comment on above: Performed By: #### 1 [id number], [id number] ####[facility] (DEFAULT)[address] [place] [address] UA Blood MODERATE Abnormal NEGATIVE [facility] Comment on above: Performed By: #### 1 [id number], [id number] ####[facility] (DEFAULT)[address] [place] [address] UA Clarity CLEAR Normal CLEAR [facility] Comment on above: Performed By: #### 1 [id number], [id number] ####[facility] (DEFAULT)[address] [place] [address] UA Leuk Est Negative Normal NEGATIVE [facility] Comment on above: Performed By: #### 1 [id number], [id number] ####[facility] (DEFAULT)[address] [place] [address] UA Nitrite Negative Normal NEGATIVE [facility] Comment on above: Performed By: #### 1 [id number], [id number] ####[facility] (DEFAULT)[address] [place] [address]253 UA pH 7.0 Normal 5-8 [facility] Comment on above: Performed By: #### 1 [id number], [id number] ####[facility] (DEFAULT)[address] [place] [address] UA Protein Negative Normal NEGATIVE [facility] Comment on above: Performed By: #### 1 [id number], [id number] ####[facility] (DEFAULT)[address] [place] [address] UA Spec Grav <=1.005 Normal 1.001-1.035 [facility] Comment on above: Performed By: #### 1 [id number], [id number] ####[facility] (DEFAULT)[address] [place] [address] UA Urobilinogen 0.2 mg/dL Normal 0.2-1.0 [facility] Comment on above: Performed By: #### 1 [id number], [id number] ####[facility] (DEFAULT)[address] [place] [address]56 Urine Source Clean Catch Normal [facility] [facility] Comment on above: Performed By: #### 1 [id number] ####[facility] (DEFAULT)[address] [place] [address] US 1st Trimesteron 08-11-2022 US 1st Trimester EXAM: US 1st Trimester HISTORY: vaginal bleeding, 7 weeks COMPARISON: 08/08/2022. TECHNIQUE: Ultrasound obstetrical first trimester. FINDINGS: Single intrauterine gestation which has migrated into the lower uterine segment. No cardiac activity is identified. Yolk sac is present. Sarepta-rump length measurement of 1.1 cm yielding estimated [...] Churchill 08/11/22 4:11 pm Technologist: [facility] US Transvaginalon 08-11-2022 US Transvaginal EXAM: US 1st Trimester HISTORY: vaginal bleeding, 7 weeks COMPARISON: 08/08/2022. TECHNIQUE: Ultrasound obstetrical first trimester. FINDINGS: Single intrauterine gestation which has migrated into the lower uterine segment. No cardiac activity is identified. Yolk sac is present. Sarepta-rump length measurement of 1.1 cm yielding estimated [...] Churchill 08/11/22 4:11 pm Technologist: GANESH Myers [facility] hCG Quantitativeon hCG Quantitative 4616.0 mIU/mL High 0.0-0.6 [facility] Comment on above: Result Comment: Post -Menopausal Reference Range is: 0.1-11.6 mIU/mL Performed By: #### 1 [id number] ####[facility] (DEFAULT)[address] [place] [address] US PREG TVon 08-08-2022 US PREG TV [...] by: CHRISTIAN KATE Date: 2022-08-08 16:56 Normal [facility] Coding Summaryon 06-19-2022 Coding Summary HTMLBase 64 KahofxvcMPu7cOm+PGhl YWQ+AC9JKCWjQ79kgRAo wE5SQ3nYPH5PHXXJFEHB EK6WZF0vvSD1HAcaJ9In biAv TrgrvXQrDG17RWu1YMW3 xPxdSTardH8wrCVwP3b1 NxWrZU10oT85SLwgDULv JnO2EeGsgrrbkCAd Q7oiWvUcoNXnWoh+PHRh YmxlIHdpZHRoPScxMDAl BwPpmYlfAG5uFf3pVKPv LWNvbGxhcHNlOiBj v7ufIQIfCKloMT1jgBba E3GqgVU9CTCgr8t8Dp60 dHI+YYXoTYF1mQlaECuy b220AjLbt6feZDE1 jCEoWWokEER3W91nz4D3 GNSiDHNtNOO9pGU9xB6j bCezjaosN7SjhUGjMcA9 CSH3nVWpkB3wyAng jrappD5yPdb+X77BRK3J FVSLJM2ANxs8W6AnEiqa dHI+RS77ERBbZA11mHOe xWUyo8loxNd5SjOh POHgOZW4dPtmTSfkj3Pm JGNzC24fyCXiu6O2WROp wKdleNOeGjJgbYK2yZ2n CXtyphxbs3ggrpjk Nkvdo6wtpt37kM23C75u ABklBVDyGPX9DNMlPZRh rNojjo6nqH4zRy2+IDxj u7cuz5imsIe8PpGn JCTweuUtaWtdTGF1t0Dw Bg69H0YcfUoan8UcMvr1 em03yRCxq2A6pYR4BQap FJWwoF7mLBmlSdD9 KNOmFuXrfW47jRQuMZqi Cz4xfWqgaEqmYG8xAOTv zuwaBZLzqP8vWIKlfCOx bSgpLV0cVXWzchly z091UsOcLHO4OOSkoHMa Z3CcbK0xKkDuKQImGQEb N7LuaQYcCUquJ660KSqm HlQ1AMCcrlXjM7Yk ADHieFjnOwB6k4B7Ut8J d1WbjxnkFBM8DCciYGOn OvR1WfCsViE5L7WmPtr3 VBXboSxkZL9kS6De GVTmacjxklveyVO5BKUk DUUomJ04yHOxOMrdMj6f i4K4g470IWUvJTUoxI51 Op5adZwiYDOxmQRS gB4cqsfcm4zaksxfYnOx OZIgHAu7XMf5TYSkyZkw UiIwFER8JeW2SYP6nXOj rI6ehUswjynkaB5d Oyc+O43ngW9rBWQ8OXV6 lyxoJOHiixZmWU27RB25 S5TpSalehMZubGZ+PGRp pvAdrOdiKR1kHuVd g1xcs7HaASinF6OmSSXt SMiyYnl2RSSxFKX0aOO7 oS8eQTHsADowm6Z3uVD9 C3QnybZxbb8wp8bh TAKnPLltW77yuOEwf9A6 CDKhfIL1SYOtgGkjRfNq bR74Mbs+CEFybPsyn0Fp Ytpso9unk8rwoCe5 IjMwJSIgdmFsaWduPSJ0 m0FnHi63N59gOPswRWVb XSAxPQLzTCHvwJmoju8r kX2bEf6+PGNvbCB3 wEZ6uA1gGCBcLqM3AUsw U115LfMbyUBsDjlod1cr o6vwdHe7DdDrKTBgjrJp gSniGFQ6a0ViUd77 Z65kWNrlNHMlEHXsDULf NRNudDgxkf4jgX1wQx7+ AA8fs7rqpg47rB28yJU+ CGHjKUQ1jUmzEObw VBKbhC2oJMlxJwJ7WXXx IlOgpC65yWOfNZbuUa6g jDvlwKtpLK8gSULkjgrg o663NoRnd7dbGGVb hIDwXQvtCTV0Q98cr7R9 NDUzDLQwJEK5xNH4sN5i bGlnbjogbGVmdDsgdmVy oYlkMKgoRDcqA663 IHRvcDsnPlBhdGllbnQg IzDjFXt0X5UjGuv8XXQf yEmfII0rpWVnVJdoTk5h bJckyUrlFJ0qNVEv qigwx751JwKdd0glUCAl hSJwTCapJCG6T85sr4K6 NEJjKCXdTKJ5xWD7jK6c bGlnbjogbGVmdDsg knXzhInhOVblOHshF295 IHRvcDsnPkJpcnRoIERh cEA2FM40YQ56nHQbp0B7 wMB0L8MgDYZtoptj bzymbAE6RXGoWRIrbT44 Bx2rvWozFr2pTBTbJAB5 TRBdbLIyH5PzqU6tMuPd GPFeAWIhX4RwjJEx KVgbJ503ZJffRtU2FPZc rjHlP7YeHSGlrPbdMuB0 r6K3Xr0NC6G0XK20ZP21 kSJum9D4sJZ9T5Nx TKVautuktoelpMD3ENZa GYZzkI83Ep6ydIkwFr1o KRAaJDD8KHKorXLdX4Gk nM8aEkZgITWgNHHp D7ZnfOExGSbcE228XLlj QvD9MHKbqjKuF4KlVAVt oBqfAbO1h9F2Fq8AZPz2 MA89WR09pJPfl5V0 pNZ3E8OfEHYtdsnslekn qNZ8GAOnWAWtfK10We2a bQszIi7dKFNsMBL8IPGl uWExU7HouD5lMmKj XYGpRJCjW6IjgSRiALch U843MThgJwF5AGYoimLa O5BqBNEmrNbsTfT3m2V7 On5INENuOK52EWP8 mAN6ZR48IH60Q3NpUehd dGFibGU+PHRhYmxlIHdp ZHRoPScxMDAlJyBzdHls AQ4dOh1fFRThYOIp nGeqvUYiOiCyh1rrMEQf GTbcQZ9bsXreH3YszXF5 ZEJit9z8Kx38U11lV7Nn dXA+FVLtwJI4gNB7 iX1wYoQpQcG6SAvoI639 JlGbnSZhLyeuf6tax9ms mKp9EaI0WIPbnhIthNlh MAD2p9ZvOu56K75q IHdpZHRoPSIxNSUiIHZh dOmajg5abW8gOf0+PGNv nID6eBX3sT3yPdPqNaK7 IFpoC144ZhQqoLVi Sdnuf3kup7dguPx9AmEj MSEsbnFroRlsFSJ1e6Lb Uk86Y4GszBvyf0VuHwz6 nl49hBHvm4R4fZG1 J3HtMDWbnbbfrSXnmKlr WJ9uBXKvbpcbJOEjaR1q QUZeR3w0ZyGvDgK7PJga M1GxuxX6WZBtiHJt CQsoEXF3Y99bn0K9EWVf XBNzYKO9aUJ9pI4asZyc bjogbGVmdDsgdmVydGlj ENsmAUmsO904UMQd sBwpYFLnpV8iIIEijBKh fLufNH8xKTPtahmnBonH TEJFUlQsIFNIRUxCWSBM BYDSUzB3V9KkMat4 UGTrkKpiAW7grZWfJIcu Nz6gkFyakTncAZ1eWZHq zngbKIRwkZ1gDOWuoSDx uSwaIS4ePCQbegip u082UpJeKMY7OGZeuFKi X5DagE4qGtScHIGfWFVr W2TkpLTxDAzoC331JVse MyO8SHOotsMoO2Wv OWXgxKlcMgE5q9F0Vf7f Uf0eRd0gHFVyFD40DM70 zJPkr6J9aBU9N4YlJLVy groezxexfCQ4UWYc DOFohE43aFJjUWwzZq3t e4H2y806HGIyGFYudT48 Om6evUtjGWOxqGBTrG5l sgxpt8afmcgwFfFc DBHrSGj2PAn8LJYarRqc VjGxMER3FzK5KZX8dJFj fV3leMsezntmzS2dRzy+ SsOaWBXtxeM4X5Dy Cef6LRNmgJzjHK1xqYBs GRgnYy7rgRfevEnqDY3i FXUwjrtqHVDehU4vIUXh cDJwxLbyXK1fBVAr hwuuv226OsIsSAU3AFEt gJFuO6PehK8pTxDnNHDh TZRxR6KwpBCrMOgbD113 RNcuJzI0GQOdsxTm D2SeKGKbjAqgEmL3e9J1 Kp9OVM1JKZW5A4MzGim2 LVDieOgvCH9ieZSqJBly Sb9yqMvhjKchQC5w BVUzzngnWIXvcO6oRHPt fLEhrEbmTG3qGPDfcepy z634PnGnDMF2TLWwjOOp L8SqnM2uKvZkSTJo ZLVmE3RjyRGxNQaeN217 WBnyOjG1MTWvqfAkO5Ah IUUiaXfmBfA8l5O6Fv3Y UDwvdGQ+XC37zc58 D4ToNdjbCtg6RAWoIYL5 jCJ5iD4mIHUrOYabn6Y1 sTI4N6IezqGkfe4dg0cq AAOpFQddN45upRCr w6Z5TAZpzGC0FNJtvVin CcUdyX18Gbc+PGNvbGdy c5TyPrhhd8esb2sxsVi1 IjMwJSIgdmFsaWdu HZX6m4OrMp47C05fKYqw ZHRoPSIzMCUiIHZhbGln mt4nwR7tRq4+PGNvbCB3 pHD8iH4hQqEbRuP1 GEddK491UyGfcWVcRuga o8cfb5ogzKe5RlDhRNFa hwCemJpkQKJ1l9FyCl87 C1IzdHnnv3SiMqs5 oi67yMGlh0L6uSS5S1Uq FVQserbmmCOssCutUE9i KXRonkhaPYCfqG7qYIPb M5x2SiTbXfT5LGxz X2FxegD3AOItvSPzZQHi fHXBvD1pjhldc5znsshs MuJoCKJiLUs6MLx4SBZe aIncFbQgZEY4BqK8 IER3eGGlsS5dfJinikdu pV6jKwz+UBq3k5ozbQEp GJ8wkGT1JV24HE20qXGd v3G6aJM3Q2BqJAEh bloljgqgpUX2HMNaRXVj jL87Sa4tsNtsAa9mSPDq AXP8RGOzsVOpY5YqqB8y XbXwBBGkNVCeR2Nx jQOpUDygD210TUecIxE8 YHZbeiOvO8HeZTFxvHhv RmY1y7Q9Ji3QZV37YG60 XB41nUKjx3C5nVH0 I0TmSAKihynkzcnygMO2 FIFkXKVjxL75Ay0euGmm Jp1wGEIrAZU2FCIgzUXa U9EzrH7sZnTxQDXy QJNaA3VjsTKmAVkaL005 TKzoGgS6AMUeveVgQ1Aw PBEbyFexHaR1s4J6Wz0G Aq29ZI83OG19aNXe g8B7iFX1Y7GmFSDugsqg shyycNK9KFEvDJGqyU16 Tg1hnKveKd5eZCQkZVT2 DATzhWGmZ6AzxH0m EgBvXSUoKOGcR4CiaYCc HBjyT868KFkjHxS2RZNx cjJyM8FiEVCajQzqPqY1 q4C4Zm8PXTlijph1 A1XwCpxhpFB+BS24WZNu ZI97iATeoCNgn8mexCg6 UjAfYFKhWDC4lCfePUqq b0JpQFAfX98gzNYt c2U (more content not included)... Normal [facility] C Throaton 06-14-2022 C Throat Ordered by Discern. Normal throat jonny isolated No pathogens isolated Normal [facility] Comment on above: Performed By: #### 1 [id number] #### [facility] (DEFAULT) [address] [place] [address] ED Clinical Summaryon 2022 ED Clinical Summary [facility] ? Urgent Care [address] [place] [address] Clinical Summary PERSON INFORMATION Name: LIA DESAI Age: 21 Years Sex: FEMALE : 2000 MRN: Acct#: Visit Reason: UC - Sore Throat; UC - Body Aches; SORE THROAT, COUGH, BODY ACHES Arrival: 06/12/2022 16:17:17 Discharge: 06/12/2022 17:23:00 LOS: 000 01:06 Check In: 06/12/2022 16:17:17 Checkout: 06/12/2022 17:23:00 Address: [address] [facility] [address] PCP: Provider, None PROVIDER INFORMATION Provider Role Assigned Unassigned Birdie James PRIEST Nurse 06/12/2022 16:19:28 Nelson Sharma PA-C ED PA 06/12/2022 16:22:15 VITALS INFORMATION Vital Sign Triage Latest Temperature Tympanic Temperature Temporal Artery Pulse Rate O2 Sat 98 % 98 % Respiratory Rate Blood Pressure /76 mmHg /76 mmHg MEDICAL INFORMATION Medications Given: Allergy Information: Adhesive Bandage; Zithromax PHYSICIAN DOCUMENTATION DISCHARGE INFORMATION: Discharge Disposition: Home Discharge Location: Home PATIENT EDUCATION INFORMATION Instructions: Cough, Adult, Qxuq-yv-Vqhm; Pharyngitis, Onus-uh-Hffo Follow-Up: With: Address: When: None Provider [address] [place] [address] Within 1 week Comments: Please follow-up with your primary care provider, call the office schedule an appointment to be seen in a week or sooner for continued care, you will be notified with your results, please take as Tessalon Perles as prescribed, take ungb-dxu-zupdnlf ibuprofen and Tylenol as needed for fevers, body aches, or headaches. Drink plenty of water to stay hydrated, and return back to the urgent care center for any worsening symptoms, concerns, or complications. DIAGNOSIS: 1:Pharyngitis; 2:Cough Patient Understands: Yes - Patient/family/careg iver verbalizes understanding of instructions given Comment: Normal [facility] ED Patient Summaryon 023 ED Patient Summary [facility] ? Urgent Care [address] [place] [address] PATIENT DISCHARGE INSTRUCTIONS Patient Information Name: LIA DESAI Age: 21 Years Date of : 2000 Reason For Visit: UC - Sore Throat; UC - Body Aches; SORE THROAT, COUGH, BODY ACHES Arrival Time: 06/12/2022 16:17:17 Primary Care Physician: Provider, None Attending Physician: Nelson Sharma PA-C Comment: Patient Education With: Address: When: None Provider [address] [place] [address] Within 1 week Comments: Please follow-up with your primary care provider, call the office schedule an appointment to be seen in a week or sooner for continued care, you will be notified with your results, please take as Tessalon Perles as prescribed, take ezga-uez-hejegvo ibuprofen and Tylenol as needed for fevers, [...] these instructions at home: Medicines ? Take vfnx-jsi-mxbzfcd and prescription medicines only as told by [...] things can cause a cough. ? Take bvzm-jmk-mjtxphq and prescription medicines only as told by [...] provider. Document Revised: 05/13/2020 Document Reviewed: 04/13/2019 [employer] Patient Education ? 2021 [employer]. Pharyngitis Pharyngitis is a sore throat (pharynx). [...] Symptoms may (more content not included)... Normal [facility] Strep Aon 06-12-2022 Strep procedure control [facility] Comment on above: Performed By: #### 1 [id number] #### [facility] (DEFAULT) [address] [place] [address] Streptococcus A Negative Normal Negative [facility] Comment on above: Performed By: #### 1 [id number] #### [facility] (DEFAULT) [address] [place] [address] Urgent Care [facility] 023 Urgent Care Record [facility] ? Urgent Care [address] [place] [address] PATIENT DISCHARGE INSTRUCTIONS Patient Information Name: LIA DESAI Age: 21 Years Date of : 2000 Reason For Visit: UC - Sore Throat; UC - Body Aches; SORE THROAT, COUGH, BODY ACHES Arrival Time: 06/12/2022 16:17:17 Primary Care Physician: Provider, None Attending Physician: Nelson Sharma PA-C Comment: Visit Diagnosis: Diagnoses This Visit Cough (R05.9) Pharyngitis (J02.9) UC - Body Aches ([id number]) UC - Sore Throat ([id number]) If you received any narcotics, sedation, or [...] documents With: Address: When: None Provider [address] [place] [address] Within 1 week Comments: Please follow-up with your primary care provider, call the office schedule an appointment to be seen in a week or sooner for continued care, you will be notified with your results, please take as Tessalon Perles as prescribed, take mmsh-yqw-pkbpwdu ibuprofen and Tylenol as needed for fevers, body aches, or headaches. Drink plenty of water to stay hydrated, and return back to the urgent care center for any worsening symptoms, concerns, or complications. Medication Information: The exam and treatment you received today in the [facility] were for an urgent problem and are not intended as complete care. It is important for you to follow up with a doctor, nurse practitioner, or physician?s activity assistant for ongoing care. If your symptoms [...] so we can reach you if necessary. [facility] has provided you with a complete list of medications post discharge. Please inform your assistant professor surgical technology/provider of your visit and for further instruction on these medications. Any specific questions regarding your chronic medications and dosages should be discussed with your primary care physician(s) and/or pharmacist. New Medications [facility], [place] [id number], [phone] benzonatate (Tessalon Perles 100 mg oral capsule) [...] these instructions at home: Medicines ? Take vusf-vex-rodasbr and prescription medicines only as told by your doctor. (more content not included)... Normal [facility] US PELVIS AND TRANSVAGon US PELVIS [...] ANGELA SCOTT Date: 2022-06-04 06:57 Normal [facility] US PREG TVon 05-16-2022 US PREG [...] CHRISTIAN KATE Date: 2022-05-16 18:15 Normal [facility] HEP B SURFACE ANTIGEN SCREEN on 04-20-2022 HBsAg Screen Negative Normal Negative [facility] Comment on above: Performed By: #### H BSANS #### [facility] [address] [place] [address] Dr. Jeronimo Melgar HEPATITIS C VIRUS AB W/ REFL EX QUANTon 04-20-2022 HCV AB <0.1 Normal 0.0-0.9 [facility] Comment on above: Performed By: #### H CVPCRR #### [facility] [address] [place] [address] Dr. Jeronimo Melgar Interpretation: Comment Normal [facility] Comment on above: Result Comment: Nega tive Not infected with HCV, unless recent infection is suspected or other evidence exists to indicate HCV infection. Performed By: #### H CVPCRR #### [facility] [address] [address] [address] Jeronimo Melgar HIV 1 AND 2 WITH REFLEXon HIV Screen 4th Generation wRfx Non-Reactive Normal Non Reactive [facility] Comment on above: Result Comment: HIV Negative HIV-1/HIV-2 antibodies and HIV-1 p24 antigen were NOT detected. There is no laboratory evidence of HIV infection. Performed By: #### H IV12 #### [facility] [address] [place] [address] Dr. Jeronimo Melgar RPR QUANTon 04-20-2022 Rapid Plasma Reagin, Quant Non-Reactive Normal NonRea<1:1 [facility] Comment on above: Result Comment: Plea se Note: This test does not meet current guidelines for screening and diagnosis of syphilis. This test is intended for following treatment response in patients being treated for syphilis infection. To screen for syphilis infection, a reflex cascade that includes both RPR and a treponema-specific assay should be utilized, such as Treponema pallidum (Syphilis) Screening Meagher (301242) or Rapid Plasma Reagin (RPR) Test With Reflex to Quantitative RPR and Confirmatory Treponema pallidum Antibodies (227072). Performed By: #### R PRQ #### [facility] [address] [place] [address] Dr. Jeronimo Melgar RUBELLA AB IGGon 04-20-2022 Rubella Antibodies, IgG 1.85 index Normal Immune >0.99 [facility] Comment on above: Result Comment: Non- immune <0.90 Equivocal 0.90 - 0.99 Immune >0.99 Performed By: #### B OX #### [facility] [address] [place] [address] Dr. Jeronimo Melgar BOX TEST SENT OUTon 04-19-19 23 SENT TO REF LAB 04/19/2022 Normal [facility] Comment on above: Performed By: #### B OX #### [facility] [address] [place] [address] Dr. Jeronimo Melgar CBC AUTO DIFFon 04-19-2022 BASO # 0.1 103/ul Normal 0.0-0.1 [facility] Comment on above: Performed By: #### B OX #### [facility] [address] [place] [address] Dr. Jeronimo Melgar Basophils/100 WBC (Bld) 0.5 % Normal 0.2-2.0 [facility] Comment on above: Performed By: #### B OX #### [facility] [address] [place] [address] Dr. Jeronimo Melgar EO # 0.1 103/ul Normal 0.0-0.7 [facility] Comment on above: Performed By: #### B OX #### [facility] [address] [place] [address] Dr. Jeronimo Melgar Eosinophils/100 WBC (Bld) 0.7 % Critically low 0.9-7.0 [facility] Comment on above: Performed By: #### B OX #### [facility] [address] [place] [address] Dr. Jeronimo Melgar Erythrocyte distribution width (RBC) [Ratio] 12.8 % Normal 11.0-15.0 [facility] Comment on above: Performed By: #### B OX #### [facility] [address] [place] [address] Dr. Jeronimo Melgar Hematocrit (Bld) [Volume fraction] 43.7 % Normal 36.0-48.0 [facility] Comment on above: Performed By: #### B OX #### [facility] [address] [place] [address] Dr. Jeronimo Melgar Hemoglobin (Bld) [Mass/Vol] 13.1 g/dL Normal 12.0-16.0 [facility] Comment on above: Performed By: #### B OX #### [facility] [address] [place] [address] Dr. Jeronimo Melgar IG # 0.02 10e3/ul Normal 0.00-0.03 [facility] Comment on above: Performed By: #### B OX #### [facility] [address] [place] [address] Dr. Jeronimo Melgar IG % 0.2 % Normal 0.0-0.5 [facility] Comment on above: Performed By: #### B OX #### [facility] [address] [place] [address] Dr. Jeronimo Melgar LYMPH # 2.6 103/ul Normal 1.2-3.8 [facility] Comment on above: Performed By: #### B OX #### [facility] [address] [place] [address] Dr. Jeronimo Melgar Lymphocytes/100 WBC (Bld) 27.3 % Normal 20.5-60.0 [facility] Comment on above: Performed By: #### B OX #### [facility] [address] [place] [address] Dr. Jeronimo Melgar MANUAL DIFF REQ NO Normal [facility] Comment on above: Performed By: #### B OX #### [facility] [address] [place] [address] Dr. Jeronimo Melgar MCH (RBC) [Entitic mass] 27.7 pg Normal 26.7-34.0 [facility] Comment on above: Performed By: #### B OX #### [facility] [address] [place] [address] Dr. Jeronimo Melgar MCHC (RBC) [Mass/Vol] 30.0 g/dL Normal 29.9-35.2 [facility] Comment on above: Performed By: #### B OX #### [facility] [address] [place] [address] Dr. Jeronimo Melgar MCV (RBC) [Entitic vol] 92.4 fL Normal 81.0-99.0 [facility] Comment on above: Performed By: #### B OX #### [facility] [address] [place] [address] Dr. Jeronimo Melgar MONO # 0.8 103/ul Normal 0.3-0.8 [facility] Comment on above: Performed By: #### B OX #### [facility] [address] [place] [address] Dr. Jeronimo Melgar Monocytes/100 WBC (Bld) 7.8 % Normal 1.7-12.0 [facility] Comment on above: Performed By: #### B OX #### [facility] [address] [place] [address] Dr. Jeronimo Melgar NEUT # 6.1 103/ul Normal 1.4-6.5 [facility] Comment on above: Performed By: #### B OX #### [facility] [address] [place] [address] Dr. Jeronimo Melgar Neutrophils/100 WBC (Bld) 63.5 % Normal 43.0-75.0 [facility] Comment on above: Performed By: #### B OX #### [facility] [address] [place] [address] Dr. Jeronimo Melgar Platelet mean volume (Bld) [Entitic vol] 10.7 fL Normal 9.5-13.5 [facility] Comment on above: Performed By: #### B OX #### [facility] [address] [place] [address] Dr. Jeronimo Melgar PLT 399 103/ul Normal 150-450 [facility] Comment on above: Performed By: #### B OX #### [facility] [address] [place] [address] Dr. Jeronimo Melgar RBC 4.73 106/ul Normal 4.20-5.40 [facility] Comment on above: Performed By: #### B OX #### [facility] [address] [place] [address] Dr. Jeronimo Melgar WBC 9.6 103/ul Normal 4.0-11.0 [facility] Comment on above: Performed By: #### B OX #### [facility] [address] [place] [address] Dr. Jeronimo Melgar CULTURE URINEon 04-19-2022 CULTURE URINE Culture Observations: LIGHT GROWTH OF MIXED GENITAL JONNY. NO POTENTIAL PATHOGENS SEEN. Normal [facility] Comment on above: Performed By: #### B OX #### [facility] [address] [place] [address] Dr. Jeronimo Melgar DRUG SCREEN RAPID (URINE)on 04-19-2022 AMP Negative Normal NEGATIVE [facility] Comment on above: Performed By: #### H IV12 #### [facility] [address] [place] [address] Dr. Jeronimo Melgar BAR Negative Normal NEGATIVE [facility] Comment on above: Performed By: #### H IV12 #### [facility] [address] [place] [address] Dr. Jeronimo Melgar BUP Negative Normal NEGATIVE [facility] Comment on above: Performed By: #### H IV12 #### [facility] [address] [place] [address] Dr. Jeronimo Melgar BZO Negative Normal NEGATIVE [facility] Comment on above: Performed By: #### H IV12 #### [facility] [address] [place] [address] Dr. Jeronimo Melgar KRISTINA Negative Normal NEGATIVE [facility] Comment on above: Performed By: #### H IV12 #### [facility] [address] [place] [address] Dr. Jeronimo Melgar CUT-OFFS SEE BELOW Normal [facility] Comment on above: Result Comment: AMP [...] ng/mL Performed By: #### H IV12 #### [facility] [address] [place] [address] Dr. Jeronimo Melgar DRUG CUT HEADER DRUG CLASS TEST SYSTEM CUT-OFF CONCENTRATIONS ARE FOLLOWS: Normal [facility] Comment on above: Performed By: #### H IV12 #### [facility] [address] [place] [address] Dr. Jeronimo Melgar mAMP Negative Normal NEGATIVE [facility] Comment on above: Performed By: #### H IV12 #### [facility] [address] [address] [address] Jeronimo Melgar MTD Negative Normal NEGATIVE [facility] Comment on above: Performed By: #### H IV12 #### [facility] [address] [place] [address] Dr. Jeronimo Melgar OPI Negative Normal NEGATIVE [facility] Comment on above: Performed By: #### H IV12 #### [facility] [address] [address] [address] Jeronimo Melgar OXY Negative Normal NEGATIVE [facility] Comment on above: Performed By: #### H IV12 #### [facility] [address] [address] [address] Jeronimo Melgar PCP Negative Normal NEGATIVE [facility] Comment on above: Performed By: #### H IV12 #### [facility] [address] [place] [address] Dr. Jeronimo Melgar PPX Negative Normal NEGATIVE [facility] Comment on above: Performed By: #### H IV12 #### [facility] [address] [address] [address] Jeronimo Melgar TCA Negative Normal NEGATIVE [facility] Comment on above: Performed By: #### H IV12 #### [facility] [address] [place] [address] Dr. Jeronimo Melgar THC Negative Normal NEGATIVE [facility] Comment on above: Performed By: #### H IV12 #### [facility] [address] [place] [address] Dr. Jeronimo Melgar GLYCOHEMOGLOBIN A1Con 2022 ADA RECOMMENDATION SEE BELOW Normal [facility] Comment on above: Result Comment: ADA RECOMMENDED LIMIT 4.0 - 6.0 ADA THERAPEUTIC TARGET < 7.0 ACTION SUGGESTED > 7.0 Performed By: #### A 1C #### [facility] [address] [place] [address] Dr. Jeronimo Melgar Glucose [Mass/Vol] 100 mg/dL Normal [facility] Comment on above: Performed By: #### A 1C #### [facility] [address] [place], [place] [id number] Dr. Jeronimo Melgar HbA1c (Bld) [Mass fraction] 5.1 % Normal 4.5-6.2 [facility] Comment on above: Performed By: #### A 1C #### [facility] [address] [place] [address] Dr. Jeronimo Melgar TYPE AND SCREENon 04-19-2022 TYPE AND SCREEN Negative Normal [facility] Comment on above: Performed By: #### B OX #### [facility] [address] [place] [address] Dr. Jeronimo Melgar CBC AUTO DIFFon 04-02-2022 BASO # 0.0 103/ul Normal 0.0-0.1 [facility] Comment on above: Performed By: #### C BC #### [facility] [address] [place] [address] Dr. Jeronimo Melgar Basophils/100 WBC (Bld) 0.3 % Normal 0.2-2.0 [facility] Comment on above: Performed By: #### C BC #### [facility] [address] [place] [address] Dr. Jeronimo Melgar EO # 0.0 103/ul Normal 0.0-0.7 [facility] Comment on above: Performed By: #### C BC #### [facility] [address] [place] [address] Dr. Jeronimo Melgar Eosinophils/100 WBC (Bld) 0.2 % Critically low 0.9-7.0 [facility] Comment on above: Performed By: #### C BC #### [facility] [address] [place] [address] Dr. Jeronimo Melgar Erythrocyte distribution width (RBC) [Ratio] 12.9 % Normal 11.0-15.0 [facility] Comment on above: Performed By: #### C BC #### [facility] [address] [place] [address] Dr. Jeronimo Melgar Hematocrit (Bld) [Volume fraction] 37.5 % Normal 36.0-48.0 [facility] Comment on above: Performed By: #### C BC #### [facility] [address] [address] [address] Jeronimo Melgar Hemoglobin (Bld) [Mass/Vol] 12.4 g/dL Normal 12.0-16.0 [facility] Comment on above: Performed By: #### C BC #### [facility] [address] [address] [address] Jeronimo Melgar IG # 0.05 10e3/ul Critically high 0.00-0.03 [facility] Comment on above: Performed By: #### C BC #### [facility] [address] [place] [address] Dr. Jeronimo Melgar IG % 0.3 % Normal 0.0-0.5 [facility] Comment on above: Performed By: #### C BC #### [facility] [address] [place] [address] Dr. Jeronimo Melgar LYMPH # 2.0 103/ul Normal 1.2-3.8 [facility] Comment on above: Performed By: #### C BC #### [facility] [address] [place] [address] Dr. Jeronimo Melgar Lymphocytes/100 WBC (Bld) 14.1 % Critically low 20.5-60.0 [facility] Comment on above: Performed By: #### C BC #### [facility] [address] [place] [address] Dr. Jeronimo Melgar MANUAL DIFF REQ NO Normal [facility] Comment on above: Performed By: #### C BC #### [facility] [address] [place] [address] Dr. Jeronimo Melgar MCH (RBC) [Entitic mass] 27.9 pg Normal 26.7-34.0 [facility] Comment on above: Performed By: #### C BC #### [facility] [address] [place] [address] Dr. Jeronimo Melgar MCHC (RBC) [Mass/Vol] 33.1 g/dL Normal 29.9-35.2 [facility] Comment on above: Performed By: #### C BC #### [facility] [address] [place] [address] Dr. Jeronimo Melgar MCV (RBC) [Entitic vol] 84.3 fL Normal 81.0-99.0 [facility] Comment on above: Performed By: #### C BC #### [facility] [address] [place] [address] Dr. Jeronimo Melgar MONO # 0.6 103/ul Normal 0.3-0.8 [facility] Comment on above: Performed By: #### C BC #### [facility] [address] [place] [address] Dr. Jeronimo Melgar Monocytes/100 WBC (Bld) 4.0 % Normal 1.7-12.0 [facility] Comment on above: Performed By: #### C BC #### [facility] [address] [place] [address] Dr. Jeronimo Melgar NEUT # 11.7 103/ul Critically high 1.4-6.5 [facility] Comment on above: Performed By: #### C BC #### [facility] [address] [place] [address] Dr. Jeronimo Melgar Neutrophils/100 WBC (Bld) 81.1 % Critically high 43.0-75.0 [facility] Comment on above: Performed By: #### C BC #### [facility] [address] [place] [address] Dr. Jeronimo Melgar Platelet mean volume (Bld) [Entitic vol] 10.2 fL Normal 9.5-13.5 [facility] Comment on above: Performed By: #### C BC #### [facility] [address] [place] [address] Dr. Jeronimo Melgar PLT 420 103/ul Normal 150-450 [facility] Comment on above: Performed By: #### C BC #### [facility] [address] [place] [address] Dr. Jeronimo Melgar RBC 4.45 106/ul Normal 4.20-5.40 [facility] Comment on above: Performed By: #### C BC #### [facility] [address] [place] [address] Dr. Jeronimo Melgar WBC 14.4 103/ul Critically high 4.0-11.0 [facility] Comment on above: Performed By: #### C BC #### [facility] [address] [place] [address] Dr. Jeronimo CARMICHAEL URINE PROFILEon 2 Bilirubin Ql (U) Negative Normal NEGATIVE [facility] Comment on above: Performed By: #### B OX #### [facility] [address] [place] [address] Dr. Jeronimo Melgar Clarity (U) CLEAR Normal CLEAR [facility] Comment on above: Performed By: #### B OX #### [facility] [address] [place] [address] Dr. Jeronimo Melgar Color (U) YELLOW Normal YELLOW [facility] Comment on above: Performed By: #### B OX #### [facility] [address] [place] [address] Dr. Jeronimo MONSIVAISMarko A micrscopic examination will be performed if indicated. Normal [facility] Comment on above: Performed By: #### B OX #### [facility] [address] [place] [address] Dr. Jeronimo Melgar Glucose Ql (U) Negative Normal NEGATIVE [facility] Comment on above: Performed By: #### B OX #### [facility] [address] [place] [address] Dr. Jeronimo Melgar Hemoglobin Ql (U) Negative Normal NEGATIVE [facility] Comment on above: Performed By: #### B OX #### [facility] [address] [place] [address] Dr. Jeronimo Melgar Ketones Ql (U) >=80 Abnormal NEGATIVE [facility] Comment on above: Performed By: #### B OX #### [facility] [address] [place] [address] Dr. Jeronimo Melgar LEUKOCYTES Negative Normal NEGATIVE [facility] Comment on above: Performed By: #### B OX #### [facility] [address] [place] [address] Dr. Jeronimo Melgar Nitrite Ql (U) Negative Normal NEGATIVE [facility] Comment on above: Performed By: #### B OX #### [facility] [address] [place] [address] Dr. Jeronimo Melgar pH (U) 7.0 [pH] Normal 5-9 [facility] Comment on above: Performed By: #### B OX #### [facility] [address] [address] [address] Jeronimo Melgar SPEC GRAVITY 1.020 Normal 1.005-<=1.025 [facility] Comment on above: Performed By: #### B OX #### [facility] [address] [place] [address] Dr. Jeronimo Melgar UA PROTEIN TRACE Normal NEGATIVE/ TRACE [facility] Comment on above: Performed By: #### B OX #### [facility] [address] [place] [address] Dr. Jeronimo Melgar UR MICRO IND NOT INDICATED Normal [facility] Comment on above: Performed By: #### B OX #### [facility] [address] [place] [address] Dr. Jeronimo Melgar Urobilinogen Qn (U) 1.0 {Pepito'U}/dL Normal 0.2 - 1. 0 [facility] Comment on above: Performed By: #### B OX #### [facility] [address] [place] [address] Dr. Jeronimo Melgar PROF CHEM 8 (BAS METB)on Anion gap [Moles/Vol] 12.7 mmol/L Normal [facility] Comment on above: Performed By: #### B MP #### [facility] [address] [place] [address] Dr. Jeronimo Melgar Calcium [Mass/Vol] 9.1 mg/dL Normal 8.5-10.1 [facility] Comment on above: Performed By: #### B MP #### [facility] [address] [place] [address] Dr. Jeronimo Melgar Chloride [Moles/Vol] 103 mmol/L Normal 98-107 [facility] Comment on above: Performed By: #### B MP #### [facility] [address] [place], [place] [address] Dr. Jeronimo Melgar CO2 [Moles/Vol] 23.9 mmol/L Normal 21.0-32.0 [facility] Comment on above: Performed By: #### B MP #### [facility] [address] [place] [address] Dr. Jeronimo Melgar Creatinine [Mass/Vol] 0.78 mg/dL Normal 0.55-1.02 [facility] Comment on above: Performed By: #### B MP #### [facility] [address] [place] [address] Dr. Jeronimo Melgar EGFR-AF [place] >60 Normal >=60 [facility] Comment on above: Performed By: #### B MP #### [facility] [address] [place] [address] Dr. Jeronimo Melgar EGFR-NON AF [place] >60 Normal >=60 [facility] Comment on above: Performed By: #### B MP #### [facility] [address] [place] [address] Dr. Jeronimo Melgar Glucose [Mass/Vol] 155 mg/dL Critically high 74-106 [facility] Comment on above: Performed By: #### B MP #### [facility] [address] [place] [address] Dr. Jeronimo Melgar Potassium [Moles/Vol] 3.6 mmol/L Normal 3.5-5.1 [facility] Comment on above: Performed By: #### B MP #### [facility] [address] [place] [address] Dr. Jeronimo Melgar Sodium [Moles/Vol] 136 mmol/L Normal 136-145 [facility] Comment on above: Performed By: #### B MP #### [facility] [address] [place] [address] Dr. Jeronimo Melgar Urea nitrogen [Mass/Vol] 7.0 mg/dL Normal 7.0-18.0 [facility] Comment on above: Performed By: #### B MP #### [facility] [address] [place] [address] Dr. Jeronimo Melgar Urea nitrogen/Creatinine [Mass ratio] 9.0 mg/mg Normal [facility] Comment on above: Performed By: #### B MP #### [facility] [address] [address] [address] Jeronimo Melgar US PREG TVon 03-28-2022 [...] ANGELA SCOTT Date: 2022-03-28 16:32 Normal The [facility] US PELVIS AND TRANSVAGon US PELVIS [...] CHRISTIAN KATE Date: 2021-10-17 16:35 Normal [facility] CHLAMYDIA/GONOCOCCUS MILY (SW AB/URINE/PAPon 10-14-2021 Chlamydia trachomatis, MILY Positive Abnormal Negative [facility] Comment on above: Result Comment: . Performed By: #### C T/NGNA #### [facility] [address] [place], [place] [address] Dr. Jeronimo Melgar Neisseria gonorrhoeae, MILY Negative Normal Negative [facility] Comment on above: Performed By: #### C T/NGNA #### [facility] [address] [address] [address] Jeronimo Melgar VAGINITIS/VAGINOSIS DNA PROB Obed 10-13-2021 Lesa species Negative Normal Negative [facility] Comment on above: Performed By: #### V AGINT #### [facility] [address] [address] [address] Jeronimo Melgar Gardnerella vaginalis Negative Normal Negative [facility] Comment on above: Performed By: #### V AGINT #### [facility] [address] [address] [address] Jeronimo Melgar Trichomonas vaginalis Negative Normal Negative [facility] Comment on above: Performed By: #### V AGINT #### [facility] [address] [address] [address] Jeronimo Melgar XR foot LT min 3V*on 022 XR foot LT min 3V* [place] [address] XRay Report Signed Patient: Lia Desai MR#: [id number] : 2000 Acct:[id number] Age/Sex: 20 / F ADM Date: 07/18/21 Loc: ER Room: Type: [facility] ER Attending Dr: Ordering Provider: Oneil Ricci APRN Date of Service: 07/18/21 XR/XR foot LT min 3V*: Extremity Injury, Lower ([id number]) XR/XR ankle LT min 3V*: Extremity Injury, [...] Brewer Jr., M.D.07/18/2021 6:15 PM Dictation Location: [place] [address] Transcribed By: CYNDEE 07/18/211814 Dictated By: Bijan Brewer Jr, MD 07/18/211812 Signed By: 07/18/211814 [facility] XR knee RT 4V*on 05-15-2021 XR knee RT 4V* [place] [address] XRay Report Signed Patient: Lia Desai MR#: [id number] : 2000 Acct:[id number] Age/Sex: 20 / F ADM Date: 05/15/21 Loc: ER Room: Type: [facility] ER Attending Dr: Ordering Provider: Yovani [...] Ana Juan M.D.05/15/2021 8:11 PM Dictation Location: [place] [address] Transcribed By: CYNDEE 05/15/212010 Dictated By: Ana Juan II, MD 05/15/212008 Signed By: 05/15/212010 [facility] Vital Signs Date Time Vital Sign Value Performing Clinician Francisco maria 07-18-2021 16:56-0400 Body height 167.64 cm [facility] 07-18-2021 16:56-0400 Body mass index (BMI) [Percentile] Per age and sex 98.9 % [facility] 07-18-2021 16:56-0400 Body mass index (BMI) [Ratio] 44.3 kg/m2 [facility] 07-18-2021 16:56-0400 Body temperature 98.3 [degF] [facility] 07-18-2021 16:56-0400 Body weight 124.6 kg [facility] 07-18-2021 16:56-0400 Diastolic blood pressure 108 mm[Hg] [facility] 07-18-2021 16:56-0400 Heart rate 80 /min [facility] 07-18-2021 16:56-0400 Respiratory rate 18 /min [facility] 07-18-2021 16:56-0400 Systolic blood pressure 162 mm[Hg] [facility] 05-15-2021 19:47-0500 Body height 167.64 cm [facility] 05-15-2021 19:47-0500 Body mass index (BMI) [Percentile] Per age and sex 98.9 % [facility] 05-15-2021 19:47-0500 Body mass index (BMI) [Ratio] 43.7 kg/m2 [facility] 05-15-2021 19:47-0500 Body temperature 98.8 [degF] [facility] 05-15-2021 19:47-0500 Body weight 122.95 kg [facility] 05-15-2021 19:47-0500 Diastolic blood pressure 65 mm[Hg] [facility] 05-15-2021 19:47-0500 Heart rate 75 /min [facility] 05-15-2021 19:47-0500 Respiratory rate 16 /min [facility] 05-15-2021 19:47-0500 SaO2% (BldA) [Mass fraction] 100 % [facility] 05-15-2021 19:47-0500 Systolic blood pressure 144 mm[Hg] [facility] Encounters Encounter Date Encounter Type Care Provider Facility Start: 10-28-2023 End: 10-28-2023 ambulatory DAPHNIE CR Not Available Start: 10-14-2023 End: 10-14-2023 ambulatory ROBERT JANES Not Available Start: 10-01-2023 End: 10-01-2023 ambulatory ROBERT JANES Not Available Start: 09-17-2023 End: 09-17-2023 ambulatory ROBERT JANES Not Available Start: 09-04-2023 End: 09-04-2023 ambulatory ZEKE RAMÍREZ [facility] Start: 09-04-2023 End: 09-04-2023 Emergency department patient visit [facility] Start: 08-26-2023 End: 08-26-2023 ambulatory ROBERT JANES Not Available Start: 07-30-2023 End: 07-30-2023 ambulatory RAUL Brown [facility] Start: 07-29-2023 End: 07-29-2023 ambulatory ROBERT JANES Not Available Start: 07-11-2023 End: 07-11-2023 Emergency department patient visit [facility] Start: 07-05-2023 End: 07-05-2023 Emergency department patient visit [facility] Start: 07-01-2023 End: 07-01-2023 ambulatory DAPHNIE CR Not Available Start: 06-18-2023 End: 06-18-2023 ambulatory ROBERT JANES Not Available Start: 06-03-2023 End: 06-03-2023 ambulatory ROBERT JANES Not Available Start: 05-26-2023 End: 05-26-2023 Emergency department patient visit Yassine Maldonado Facility:[facility] Start: 05-17-2023 Clinisync Result Encounter Robert Janes DO Work Phone: [facility] External Department Unsolicited Start: 05-17-2023 Clinisync Result Encounter Robert Janes DO Work Phone: [facility] External Department Unsolicited Start: 05-15-2023 End: 05-15-2023 Emergency department patient visit Mamie Moore Facility:[facility] Start: 05-14-2023 Chart abstracting Robert Janes DO Work Phone: [facility] Start: 05-07-2023 Documentation procedure Leah Hernandez RN [facility] Certified Nurse Lead [employer] Developer - [place] Start: 05-02-2023 End: 05-02-2023 ambulatory ROBERT MARRERO Not Available Start: 04-19-2023 Telephone encounter Leah Hernandez RN [facility] Certified Nurse Lead Web Developer - [place] Start: 04-17-2023 Telephone encounter Leah Hernandez RN [facility] Certified Nurse Lead Web Developer - [place] Start: 04-15-2023 End: 04-15-2023 Emergency department patient visit Yassine Maldonado Facility:[facility] Start: 04-12-2023 End: 04-12-2023 ambulatory Oneil MILLS Facility:[facility] Start: 04-05-2023 Orders Only Leah Hernandez RN [facility] Certified Nurse Lead Web Developer - [place] Comment on above: Nausea and vomiting during (Primary Dx) Start: 03-01-2023 End: 03-01-2023 Emergency department patient visit Tom Smith Facility:[facility] Start: 02-26-2023 End: 02-26-2023 ambulatory Errol JUSTICE Facility:[facility] Start: 02-14-2023 End: 02-14-2023 ambulatory DORA MILLS Facility:[facility] Start: 11-15-2022 End: 11-15-2022 Emergency department patient visit None Provider Facility:[facility] Start: 08-25-2022 End: 08-26-2022 ambulatory Alaina Matta CNM Facility:[facility] Start: 08-11-2022 End: 08-11-2022 Emergency department patient visit Adamaris Jaeger PA-C Facility:[facility] Start: 08-08-2022 End: 08-09-[address] BALDOMERO ELLER . Facility: Start: 06-12-2022 End: 06-12-2022 ambulatory None Provider Facility:[facility] Start: 06-02-2022 End: 06-03-[address] BALDOMERO ELLER . Facility:[facility] Start: 05-18-2022 Encounter for other preprocedural examination DR BALDOMERO ELLER . [facility] Start: 05-17-2022 End: 05-17-[address] [...] 07-18-2021 End: 07-18-2021 Emergency department patient visit [facility] Start: 05-15-2021 End: 05-15-2021 Emergency department patient visit [facility] Procedures Date Procedure Procedure Detail Performing Clinician Start: 05-17-2023 ALL CBC WITH AUTO DIFF Robert Janes DO Work Phone: Start: 05-15-2021 X-ray of right knee Plan of Treatment Date Care Activity Detail Author Start: 05-15-2028 DTaP,Tdap and Td Vaccines (2 - Td or Tdap) DTaP,Tdap and Td Vaccines (2 - Td or Tdap) [facility] Start: 03-05-2024 Adult BMI Screening Adult BMI Screen ing [facility] Start: 03-05-2024 Tobacco Screening Tobacco Screening [facility] Start: 09-26-2023 Screening for Chlamy driss trachomatis Chlamydia Screening [facility] Start: 06-03-2023 End: 06-03-2023 Patient encounter procedure 06/03/2023 2:10 PM EST Routine [facility] [address] [id number] Robert Marrero, DO [address] [place] [address] [facility] Start: 04-17-2023 End: 04-17-2023 ambulatory 04/17/2023 8:30 AM EST Initial [facility] Services Certified Nurse Lead Web Developer - [place] [address] [facility] [address] [place] [address] [facility] Certified Nurse Lead Web Developer - [place] Start: 12-07-2022 Influenza vaccination Influenza Vacc ine [facility] Start: 2022 Screening for malign ant neoplasm of cervix Pap Smear [facility] Start: 07-18-2021 X-ray of left ankle XR ankle LT min 3V* [facility] Start: 07-18-2021 X-ray of left foot XR foot LT min 3V * [facility] Start: 10-08-2019 Adult BMI Follow Up Plan Adult BMI Follow Up Plan [facility] Start: 2013 Depression Screening Depression [facility] Patient Education [facility] Work Phone: Patient referral [facility] Work Phone: Payers Date Payer Category Payer Medicaid [id number] 2001 Unknown [id number] 2.16.84 0.1.451485.3.579.2.593 2001 Unknown [id number] 2.16.84 0.1.951711.3.579.2.593 2001 Unknown [id number] 2.16.84 0.1.349806.3.579.2.593 2001 Unknown [id number] 2.16.84 0.1.194146.3.579.2.593 2001 Unknown [id number] 2.16.84 0.1.752648.3.579.2.593 2001 Unknown [id number] 2.16.84 0.1.222085.3.579.2.593 2001 Unknown [id number] 2.16.84 0.1.013891.3.579.2.593 2001 Unknown [id number] 2.16.84 0.1.354530.3.579.2.593 2001 Unknown [id number] 2.16.84 0.1.398222.3.579.2.593 2001 Unknown [id number] 2.16.84 0.1.018884.3.579.2.593 2001 Unknown [id number] 2.16.84 0.1.392233.3.579.2.593 2001 Unknown [id number] 2.16.8 40.1.877108.3.579.2.718 2001 Unknown [id number] 2.16.8 40.1.385152.3.579.2.718 2001 Unknown [id number] 2.16.8 40.1.148259.3.579.2.718 2001 Unknown [id number] 2.16.8 40.1.219499.3.579.2.718 2001 Unknown [id number] 2.16.8 40.1.992947.3.579.2.718 2001 Unknown [id number] 2.16.8 40.1.200138.3.579.2.718 2001 Unknown [id number] 2.16.8 40.1.868887.3.579.2.718 2001 Unknown [id number] 2.16.8 40.1.049761.3.579.2.718 2001 Unknown [id number] 2.16.8 40.1.309616.3.579.2.718 2001 Unknown [id number] 2.16.8 40.1.246640.3.579.2.718 2001 Unknown [id number] 2.16.8 40.1.281515.3.579.2.718 2001 Unknown [id number] 2.16.8 40.1.813366.3.579.2.6 2001 Unknown [id number] 2.16.8 40.1.425367.3.579.2.6 2001 Unknown [id number] 2.16.8 40.1.930580.3.579.2.1285 2001 Unknown [id number] 2.16.8 40.1.701037.3.579.2.6 2001 Unknown [id number] 2.16.8 40.1.046004.3.579.2.1285 2001 Unknown [id number] 2.16.84 0.1.217003.3.579.2.1258 2001 Unknown [id number] 2.16.84 0.1.138565.3.579.2.1258 2001 Unknown [id number] 2.16.84 0.1.149499.3.579.2.9 2001 Unknown [id number] 2.16.84 0.1.479998.3.579.2.1258 2001 Unknown [id number] 2.16.84 0.1.240641.3.579.2.1258 2001 Unknown [id number] 2.16.84 0.1.158304.3.579.2.1258 2001 Unknown [id number] 2.16.84 0.1.511156.3.579.2.1258 2001 Unknown [id number] 2.16.84 0.1.737581.3.579.2.1258 2001 Unknown [id number] 2.16.84 0.1.658112.3.579.2.1259 2001 Unknown [id number] 2.16.84 0.1.363003.3.579.2.1259 1959 Unknown [id number] Self-pay Self Pay [id number] Social History Date Type Detail Facility Start: 07-18-2021 End: 05-14-2023 Tobacco smoking status NHIS Never smoked tobacco (finding) [facility] Start: 2000 Sex Assigned At Female [facility] History of tobacco use Passive smoker [facility] Start: 08-01-2022 Tobacco use and exposure Smokeless tobacco non-user [facility] Start: 03-05-2023 Alcohol intake Ex-drinker (finding) [facility] Start: 03-05-2023 End: 05-14-2023 History of Social function [facility] Start: 03-05-2023 End: 05-14-2023 Tobacco use panel [facility] Housing Instability Unknown [facility] Start: 08-14-2022 Alcohol Comment social [facility] Start: 2001 Sex Assigned At Not on file [facility] Start: 05-14-2023 Alcohol intake Lifetime non-drinker (finding) [facility] Start: 03-20-2023 [facility] Start: 05-01-2023 Gender identity Identifies as female gender (finding) [facility] Start: 05-01-2023 Sexual orientation Heterosexual (finding) [facility] Clinical Notes 06-12-2022 to 05-26-2023 [...] Keep all follow-up visits. Medicines ? Take appk-vyj-nihjlqp and prescription medicines only as told by [...] be an em (more content not included)... [facility] 05-15-2023 Note Education Materials Obstetrics and [...] uri tea. ? Taking prescription medicine or ihep-dxf-ddnhgmf medicine as told by your health care [...] carbonated or sour. These include lemonade, uri prabhkaar, lemon?togiak soda, ice water, and sparkling water. Things [...] food. The s (more content not included)... [facility] 05-07-2023 History of Presen t illness Narrative Letter sent to patient via [facility] and also to her My Chart regarding her missed OB intake appointment and also her MICHAEL for her Chlamydia. documented in this encounter [facility] 04-19-2023 Miscellaneous Notes Called patient to reschedule her IOB intake visit. No answer. Left message to call office to reschedule her appointment. documented in this encounter [facility] 04-19-2023 Telephone encounter Note Called patient to reschedule her IOB intake visit. No answer. Left message to call office to reschedule her appointment. [facility] 04-17-2023 Miscellaneous Notes Patient called for her OB intake per phone. No answer. Left message to call office. documented in this encounter [facility] 04-17-2023 Telephone encounter Note Patient called for her OB intake per phone. No answer. Left message to call office. [facility] [employer] [facility] 04-15-2023 Note Education Materials Gastroenterology Nausea [...] ? Low-calorie sports drinks. ? Eat bland, wpwr-af-ciruzo foods in small amounts as you are able, such as: ? Bananas. ? Applesauce. ? Rice. ? Low-fat (lean) meats. ? [place]. ? Crackers. ? Avoid drinking fluids that have a lot of sugar or caffeine in them. This includes energy drinks, sports drinks, and soda. ? Avoid alcohol. ? Avoid spicy or fatty foods. General instructions ? Take tjnk-hmf-jebffaw and prescription medicines only as told by your doctor. ? Drink enough fluid to keep your pee (urine) pale yellow. ? Wash your hands often with soap and water for at least 20 seconds. If you cannot use soap and water, use hand engagement executive. ? Make sure that everyone in your [...] doctor about eating and drinking. ? Take dnvn-kaz-jruqcgg and prescription medicines only as told by [...] Reviewed: 09/29/2021 Elsevier Patient Education ? 2022 [employer]. [facility] 04-12-2023 Note Patient Education Ma terials [...] these instructions at home: Medicines ? Take mgfo-pdx-baoemiu and prescription medicines only as told by your health care provider. Do not use any prescription, dytx-qpf-pbhpyny, or herbal medicines for morning sickness without [...] provider. Document Revised: 11/07/2020 Document Reviewed: 10/17/2020 [employer] Patient Education ? 2022 [employer]. [facility] 03-01-2023 Note Education Materials Pulmonary Medicine [...] Follow these instructions at home: ? Take eitq-qwv-zqhfuzb and prescription medicines only as told by [...] and water are not available, use hand engagement executive. ? Avoid contact with people who have [...] is easier to cough up. ? Take etqs-zyk-vyuicmd an (more content not included)... [facility] 02-26-2023 Note Patient Education Ma terials [...] to help relieve symptoms, such as: ? Pxsz-jhk-bnnfjie cold medicines. ? Cough suppressants. Coughing is [...] other clear broths. General instructions ? Take dblf-ahk-qaheysz and prescription medicines only as told by [...] and water are not available, use hand engagement executive. ? Avoid touching your mouth, face, eyes, [...] These symptoms may (more content not included)... [facility] 02-14-2023 Note Patient Education Ma terials [...] elastic wrap to support your hand. ? Wkvs-pcv-vvfqknw medicines to control pain. Follow these instructions [...] or lying down. General instructions ? Take zdtl-rjr-qzcuqou and prescription medicines only as told by [...] provider. Document Revised: 07/13/2021 Document Reviewed: 07/13/2021 [employer] Patient Education ? 2022 [employer] How to Use Cold Therapy Cold [...] on your pr (more content not included)... [facility] 11-15-2022 Note Education Materials Orthopedics Sciatica [...] by your health care provider. Stretching and okudc-fx-ukteax exercises These exercises warm up your muscles [...] standing, keep y (more content not included)... [facility] 08-11-2022 Note Education Materials Obstetrics and [...] these instructions at home: Medicines ? Take boeg-pcr-nwubsdm and prescription medicines only as told by [...] Where to find more information ? [employer]: acog.org ? U.[place]. Department of Health and Human Services Office of Women's Health: hrsa.gov/jitxvl-dfzfby-iqiwaf Contact a doctor if: ? You have [...] ? Text the Crisis Text Line at 328991. Summary ? A miscarriage is the loss [...] provider. Document Revised: 09/23/2020 Document Reviewed: 09/23/2020 [employer] Patient Education ? 2021 [employer]. [facility] 06-12-2022 Note Patient Education Ma terials [...] these instructions at home: Medicines ? Take mbds-zdb-wlidqeq and prescription medicines only as told by [...] things can cause a cough. ? Take gshs-awp-wpjxetm and prescription medicines only as told by [...] provider. Document Revised: 05/13/2020 Document Reviewed: 04/13/2019 [employer] Patient Education ? 2021 [employer]. Infectious Disease Pharyngitis Pharyngitis is a sore [...] these instructions at home: Medicines ? Take hepy-twm-pcvojwo and prescription medicines only as told by your doctor. ? If you were prescribed an antibiotic medicine, take it as told by your doctor. Do not stop taking the antibiotic even if you start to feel better. ? Use throat loze (more content not included)... 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 Start Date End Date Services, Counts Include [address] [address] [place], [place] PCP - General Family Medicine 08/11/18 Director Of Retention Relationship Specialty [facility] [address] [place] - General Family Medicine 08/11/18 Director Of Retention Relationship Specialty Start Date [facility] [address] [place] PCP - General Family Medicine 08/11/18 Goals (unrecognized section and content) Goals may be documented in a n alternate sectionNot on filedocumented as of this encounterNot on filedocumented as of this encounterNot on filedocumented as of this encounterNot on filedocumented as of this encounter INFORMATION SOURCE (unrecogn ized section and content) DATE CREATED AUTHOR 07/27/2021 [facility] DATE CREATED AUTHOR AUTHOR'S ORGANIZ ATION 08/16/2022 [facility] DATE CREATED AUTHOR AUTHOR'S ORGANIZ ATION 06/08/2023 [facility] DATE CREATED AUTHOR AUTHOR'S ORGANIZ ATION 09/05/2023 [facility] DATE CREATED AUTHOR AUTHOR'S ORGANIZ ATION 10/30/2023 [facility] FOR RECORDS PERTAINING TO PATIENTS WHO [...] BE BASED ON THE PRIMARY CLINICAL RECORDS. [employer] provides no warranty or guarantee of the accuracy or completeness of information in this document.
[2023-11-08 23:11] VITALS: BP 110/65; PULSE 99
[2023-11-08 23:18] LABS: Bilirubin Urine NEGATIVE (NEGATIVE); Blood Urine MODERATE (NEGATIVE); Clarity Urine CLEAR (CLEAR); Color Urine YELLOW (YELLOW); Glucose Urine UA NEGATIVE (NEGATIVE); Ketones Urine NEGATIVE (NEGATIVE); Leukocyte Esterase Urine SMALL (NEGATIVE); Nitrite Urine NEGATIVE (NEGATIVE); Protein Urine NEGATIVE (NEG/TRACE); Specific Gravity Urine >=1.030 (1.005-1.025)
[2023-11-08 23:20] LABS: Urine Microscopic Indicated YES
[2023-11-08 23:26] VITALS: TEMP 35.8
[2023-11-08 23:27] LABS: Bacteria Urine MODERATE #/HPF (NONE SEEN); Calcium Oxalate Crystals Urine FEW; Cast Seen? NONE SEEN #/LPF (NONE SEEN); Crystals Seen? Seen #/HPF (None Seen); Mucus Urine NONE SEEN (NONE SEEN); Squamous Epithelial Cell Urine MODERATE #/LPF (NONE/RARE); Urine Culture Indicated YES
== END 2023-11-09 | disposition home or self-care (01) ==
LOC: FBC 22:49
PROVIDERS: Admitting Provider Obstetrics & Gynecology; Visit Provider Obstetrics & Gynecology
DX: O47.03 False labor before 37 completed weeks of gestation, third trimester (principal); Z3A.35 35 weeks gestation of pregnancy
CPT/HCPCS: 59025; 81001; 87086; G0378; G0379

== ENCOUNTER 2023-11-13 21:44 | Outpatient (REF) | payer OTHER, SELFPAY ==
--- OUTSIDE RECORDS SUMMARY | 2023-11-13 21:48 | XMS_ITS | CCD ---
Author Organization [facility] Care Team Providers Care Laboratory Engineer Name Role Phone NON STAFF Primary Care Provider LAURA Kraft Emergency Provider NICOLE Ricci Emergency Provider DAPHNIE ., DR ALEXANDRE Attending Unavailabl e KARASIK ., DR ALEXANDRE Admitting Unavailabl [facility] Unava ilable KARASIK ., DR ALEXNADRE Consulting Unavailabl e LAVINIA, DR CHRISTIAN Doyle Consulting Unavailable KARASIK ., DR ALEXANDRE Consulting Unavailabl e KARASIK ., DR ALEXANDRE Attending Unavailabl e [facility] Unava ilable KARASIK ., DR ALEXANDRE Admitting Unavailabl e ANGELA SCOTT Consulting Unavailable DINA, DR ANA Dennis Attending Unavailable DINA, DR ANA Dennis Admitting [facility] Unava ilable DINA, DR ANA Dennis Consulting [...] KARASIK ., DR ALEXANDRE Attending Unavailabl e [facility] Primary Care Unava ilable KARASIK ., DR ALEXANDRE Admitting Unavailabl e KARASIK ., DR ALEXANDRE Consulting Unavailabl e ZIEBER, ANGELA Dennis Consulting Unavailable KARASIK ., DR ALEXANDRE Attending Unavailabl e KARASIK ., DR ALEXANDRE Admitting Unavailabl e [facility] Primary Care Unava ilable KARASIK ., DR ALEXANDRE Consulting Unavailabl e KARASIK ., DR ALEXANDRE Consulting Unavailabl e KARASIK ., DR ALEXANDRE Attending Unavailabl e [facility] Primary [facility] Unava ilable KARASIK ., DR ALEXANDRE Admitting Unavailabl e WEST, DR CHRISTIAN Doyle Consulting Unavailable REQUEST, DR AMBER LISTED Consulting [facility] Primary Care Provider Unavailable Primary Care [...] Admitting Unavailable Sharma, Nelson Attending Unavailable SERVICES, [facility] Unava ilable KENDRA EDWARDS Attending Unavailable SERVICES, [facility] Unava ilable LOZOYA SYMONE L Attending Unavailable RAUL HAMMOND Admitting Unavailable RAUL HAMMOND Attending Unavailable SERVICES, [facility] Unava ilable SERVICES, [facility] Unava ilable FRIES, ZEKE S Admitting Unavailable FRIES, ZEKE S Attending Unavailable SERVICES, [facility] Unava ilable JANES, ROBERT Attending Unavailable JANES, ROBERT Attending Unavailable TAYODAPHNIE Attending Unavailable JANES, ROBERT Attending Unavailable JANES, ROBERT Attending Unavailable JANES, ROBERT Attending Unavailable JANES, ROBERT Attending Unavailable JANES, ROBERT Attending Unavailable TAYO, DAPHNIE Attending Unavailable Allergies Allergy Classification Reported Allergen(s) Allergy Type Date of Onset Reaction(s) Facility (1 source) [facility] Drug Allergy [facility] Repository (2 sources) Azithromycin; Translations: [AZITHROMYCIN] Drug Allergy 2 [facility] Repository (5 sources) Adhesive agent; Translations: [ADHESIVE] Propensity to adverse reactions to drug 3 [facility] (6 sources) Azithromycin Drug Allergy 2 [facility] (2 sources) Macrolides And Ketolides Drug Allergy 4 Unknown [facility] (2 sources) Wound Dressing Adhesive Drug Allergy 4 [facility] (1 source) Adhesive bandage; Translations: [Adhesive Bandage] Propensity to adverse reactions (disorder) [facility] Repository (1 source) Azithromycin; Translations: [Zithromax] Drug Allergy [facility] Repository (1 source) metroNIDAZOLE; Translations: [METRONIDAZOLE] [facility] 4 [facility] Medications Current Medications Medication Drug Class(es) Dates Sig (Normalized) Sig (Original) [id number] 200 actuat albuterol 0.09 mg/actuat metered dose [...] 09-04-2023 Bilirubin Ql (U) Negative Normal NEG [facility] Comment on above: Performed By: #### C HILLARY CANCINO, 3040-3 #### [facility] ([id number]) [address] [place] [address] 50936 BLOOD/HGB Negative Normal NEG [facility] Comment on above: Performed By: #### C HILLARY CANCINO, 3040-3 #### [facility] ([id number]) [address] [place] [address] 00228 Color (U) YELLOW Normal YELLOW [facility] Comment on above: Performed By: #### C HILLARY CANCINO, 3040-3 #### [facility] ([id number]) [address] [place] [address] 06675 Glucose Ql (U) Negative Normal NEG [facility] Comment on above: Performed By: #### C HILLARY CANCINO, 3039-3 #### [facility] ([id number]) [address] [place] [address] [place] [address] Ketones Ql (U) Negative Normal NEG [facility] Comment on above: Performed By: #### Shakeel CANCINO CMP, 3039-3 #### [facility] ([id number]) [address] [place] [address] [place] [address] Leukocyte esterase Test strip Ql (U) Trace Abnormal NEG [facility] Comment on above: Performed By: #### Shakeel CANCINO CMP, 3039-3 #### [facility] ([id number]) [address] [place] [address] 94247 Nitrite Ql (U) Negative Normal NEG [facility] Comment on above: Performed By: #### Shakeel CANCINO CMP, 3039-3 #### [facility] ([id number]) [address] [place] [address] [place] [address] pH (U) 6.5 [pH] Normal 5.0-8.5 [facility] Comment on above: Performed By: #### Shakeel CANCINO CMP, 3039-3 #### [facility] ([id number]) [address] [place] [address] 47588 Protein Ql (U) Negative Normal NEG [facility] Comment on above: Performed By: #### Shakeel CANCINO CMP, 3039-3 #### [facility] ([id number]) [address] [place] [address] [place] [address] R.B.CELLS 0 /hpf Normal 0-5 [facility] Comment on above: Performed By: #### Shakeel CANCINO CMP, 3039-3 #### [facility] ([id number]) [address] [place] [address] [place] [address] Specific gravity (U) [Rel density] 1.020 Normal 1.003-1.035 [facility] Comment on above: Performed By: #### C BARAK, CMP, 3040-3 #### [facility] ([id number]) [address] [place] [address] 44947 SQUAMOUS EPITHELIUM 5 /hpf Normal 0-5 [facility] Comment on above: Performed By: #### Shakeel CANCINO, CMP, 3040-3 #### [facility] ([id number]) [address] [place] [address] 90451 TURBIDITY HAZY Abnormal CLEAR [facility] Comment on above: Performed By: #### Shakeel CANCINO, CMP, 3040-3 #### [facility] ([id number]) [address] [place] [address] 02560 Urobilinogen Qn (U) 1.0 {Pepito'U}/dL Normal <1.1 [facility] Comment on above: Performed By: #### Shakeel CANCINO, [facility], 3040-3 #### [facility] ([id number]) [address] [place] [address] 84950 W.B.CELLS 2 /hpf Normal 0-5 [facility] Comment on above: Performed By: #### Shakeel CANCINO, [facility], 3040-3 #### [facility] ([id number]) [address] [place] [address] 56368 COMPLETE BLOOD COUNTon 07-29 Erythrocyte distribution width (RBC) [Ratio] 13.5 % Normal 11.5-15.0 [facility] Comment on above: Performed By: #### C BC, CMP #### [facility] ([id number]) [address] [place] [address] 75619 Hematocrit (Bld) [Volume fraction] 32.1 % Low 35-47 [facility] Comment on above: Performed By: #### Shakeel BC, CMP #### [facility] ([id number]) [address] [place] [address] 50659 Hemoglobin (Bld) [Mass/Vol] 11.0 g/dL Low 11.7-15.5 [facility] Comment on above: Performed By: #### C BC, CMP #### [facility] ([id number]) [address] [place] [address] 86129 MCH (RBC) [Entitic mass] 28.8 pg Normal 27-34 [facility] Comment on above: Performed By: #### C BC, CMP #### [facility] ([id number]) [address] [place] [address] 34531 MCHC (RBC) [Mass/Vol] 34.3 g/dL Normal 32-36 [facility] Comment on above: Performed By: #### C BC, CMP #### [facility] ([id number]) [address] [place] [address] 33689 MCV (RBC) [Entitic vol] 84 fL Normal 80-100 [facility] Comment on above: Performed By: #### C BC, CMP #### [facility] ([id number]) [address] [place] [address] 45150 Platelet mean volume (Bld) [Entitic vol] 8.9 fL Normal 7-12 [facility] Comment on above: Performed By: #### C BC, CMP #### [facility] ([id number]) [address] [place] [address] 41581 Platelets (Bld) [#/Vol] 354 10*3/uL Normal 150-450 [facility] Comment on above: Performed By: #### C BC, CMP #### [facility] ([id number]) [address] [place] [address] 79046 RBC COUNT 3.82 X10E12/L Normal 3.80-5.20 [facility] Comment on above: Performed By: #### C BC, CMP #### [facility] ([id number]) [address] [place] [address] 28503 WBC (Bld) [#/Vol] 12.0 10*3/uL High 4.0-11.0 [facility] Comment on above: Performed By: #### C BC, CMP #### [facility] ([id number]) [address] [place] [address] 41859 COMPREHENSIVE METABOLIC PANE Alex 07-30-2023 Albumin [Mass/Vol] 3.0 g/dL Low 3.2-5.3 [facility] Comment on above: Performed By: #### C BC, CMP #### [facility] ([id number]) [address] [place] [address] 63641 ALP [Catalytic activity/Vol] 67 U/L Normal 39-130 [facility] Comment on above: Performed By: #### C BC, CMP #### [facility] ([id number]) [address] [place] [address] 78826 ALT [Catalytic activity/Vol] 10 U/L Normal 0-31 [facility] Comment on above: Performed By: #### C BC, CMP #### [facility] ([id number]) [address] [place] [address] 21483 Anion gap [Moles/Vol] 7 mmol/L Normal 5-15 [facility] Comment on above: Performed By: #### C BC, CMP #### [facility] ([id number]) [address] [place] [address] 39922 AST [Catalytic activity/Vol] 12 U/L Normal 0-41 [facility] Comment on above: Performed By: #### C BC, CMP #### [facility] ([id number]) [address] [place] [address] 67313 Bilirubin [Mass/Vol] 0.5 mg/dL Normal 0.3-1.2 [facility] Comment on above: Performed By: #### C BC, CMP #### [facility] ([id number]) [address] [place] [address] 09090 Calcium [Mass/Vol] 8.1 mg/dL Low 8.5-10.5 [facility] Comment on above: Performed By: #### C BC, CMP #### [facility] ([id number]) [address] [place] [address] 71829 Chloride [Moles/Vol] 108 mmol/L Normal 98-109 [facility] Comment on above: Performed By: #### C BC, CMP #### [facility] ([id number]) [address] [place] [address] 78403 CO2 [Moles/Vol] 19 mmol/L Low 22-32 [facility] Comment on above: Performed By: #### C BC, CMP #### [facility] ([id number]) [address] [place] [address] 64238 Creatinine [Mass/Vol] 0.52 mg/dL Normal 0.40-1.00 [facility] Comment on above: Result Comment: METH OD TRACEABLE TO IDMS STANDARD Performed By: #### C BC, CMP #### [facility] ([id number]) [address] [place] [address] 28092 eGFR (CKD-EPI) NON-RACE DEPENDENT >90 Normal >59 [facility] Comment on above: Result Comment: Reported eGFR is based on the CKD-EPI 2020 equation that does not use a race coefficient. Performed By: #### C BC, CMP #### [facility] ([id number]) [address] [place] [address] 83956 Glucose [Mass/Vol] 79 mg/dL Normal 65-99 [facility] Comment on above: Performed By: #### C BC, CMP #### [facility] ([id number]) [address] [place] [address] 63057 Potassium [Moles/Vol] 3.9 mmol/L Normal 3.5-5.0 [facility] Comment on above: Performed By: #### C BC, CMP #### [facility] ([id number]) [address] [place] [address] 89104 Protein [Mass/Vol] 6.1 g/dL Normal 6.0-8.0 [facility] Comment on above: Performed By: #### C BC, CMP #### [facility] ([id number]) [address] [place] [address] 34441 Sodium [Moles/Vol] 134 mmol/L Normal 134-146 [facility] Comment on above: Performed By: #### C BC, CMP #### [facility] ([id number]) [address] [place] [address] 47973 Urea nitrogen [Mass/Vol] 6 mg/dL Normal 5-23 [facility] Comment on above: Performed By: #### C BC, CMP #### [facility] ([id number]) [address] [place] [address] 46691 DRUG SCREEN, URINEon 024 AMPHETAMINE/METHAMP Negative Normal NEG [facility] Comment on above: Result Comment: AMPH /METH screening cut off = 1000 ng/mL Performed By: #### D FLOWER #### [facility] ([id number]) [address] [place] [address] [place] [address] BARBITURATES Negative Normal NEG [facility] Comment on above: Result Comment: Deirdre iturates screening cut off value = 200 ng/mL Performed By: #### D FLOWER #### [facility] ([id number]) [address] [place] [address] 16178 BENZODIAZEPINES Negative Normal NEG [facility] Comment on above: Result Comment: Vinny odiazepines screening cut off value = 200 ng/mL Performed By: #### D FLOWER #### [facility] ([id number]) [address] [place] [address] 92469 CANNABINOIDS Negative Normal [facility] Comment on above: Result Comment: Lavern abinoids/THC screening cut off value = 50 ng/mL Performed By: #### D FLOWER #### [facility] ([id number]) [address] [place] [address] 53560 COCAINE METABOLITE Negative Normal NEG [facility] Comment on above: Result Comment: Coca ine screening cut off value = 300 ng/mL Performed By: #### D FLOWER #### [facility] ([id number]) [address] [place] [address] 87355 ECSTASY Negative Normal [facility] Comment on above: Result Comment: Ecst asy screening cut off value = 500 ng/mL This report is intended for use in clinical monitoring or management of patients. Performed By: #### D FLOWER #### [facility] ([id number]) [address] [place] [address] 33264 METHADONE Negative Normal [facility] Comment on above: Result Comment: Meth adone screening cut off value = 300 ng/mL. Performed By: #### D FLOWER #### [facility] ([id number]) [address] [place] [address] 99783 OPIATES Negative Normal NEG [facility] Comment on above: Result Comment: Opia bernadette screening cut off value = 300 ng/mL NOTE: This test is used for the detection of codeine, hydrocodone (>1000 ng/mL), morphine and hydromorphone (>900 ng/mL) in urine. Performed By: #### D FLOWER #### [facility] ([id number]) [address] [place] [address] 71299 OXYCODONE Negative Normal [facility] Comment on above: Result Comment: Oxyc odone screening cut off value = 300 ng/mL NOTE: This test is used for the detection of oxycodone and oxymorphone in urine. Performed By: #### D FLOWER #### [facility] ([id number]) [address] [place] [address] 47298 PHENCYCLIDINE Negative Normal NEG [facility] Comment on above: Result Comment: Phen cyclidine screening cut off value = 25 ng/mL Performed By: #### D FLOWER #### [facility] ([id number]) [address] [place] [address] 54778 URINALYSISon 07-30-2023 Bilirubin Ql (U) Negative Normal NEG [facility] Comment on above: Performed By: #### C BARAK, CMP, 3040-3 #### [facility] ([id number]) [address] [place] [address] 12746 BLOOD/HGB Negative Normal NEG [facility] Comment on above: Performed By: #### C BCA, CMP, 3040-3 #### [facility] ([id number]) [address] [place] [address] 71954 Color (U) YELLOW Normal YELLOW [facility] Comment on above: Performed By: #### C BCA, CMP, 3040-3 #### [facility] ([id number]) [address] [place] [address] 49714 Glucose Ql (U) Negative Normal NEG [facility] Comment on above: Performed By: #### C BCA, CMP, 3040-3 #### [facility] ([id number]) [address] [place] [address] 69631 Ketones Ql (U) Negative Normal NEG [facility] Comment on above: Performed By: #### C BCA, CMP, 3040-3 #### [facility] ([id number]) [address] [place] [address] 85887 Leukocyte esterase Test strip Ql (U) Negative Normal NEG [facility] Comment on above: Performed By: #### Shakeel CANCINO, CMP, 3039-3 #### [facility] ([id number]) [address] [place] [address] 26097 Nitrite Ql (U) Negative Normal NEG [facility] Comment on above: Performed By: #### Shakeel CANCINO, CMP, 3039-3 #### [facility] ([id number]) [address] [place] [address] 30957 pH (U) 7.0 [pH] Normal 5.0-8.5 [facility] Comment on above: Performed By: #### Shakeel CANCINO CMP, 3039-3 #### [facility] ([id number]) [address] [place] [address] 31015 Protein Ql (U) Negative Normal NEG [facility] Comment on above: Performed By: #### Shakeel CANCINO CMP, 3 #### [facility] ([id number]) [address] [place] [address] 59101 R.B.CELLS 0 to 1 Normal 0-5 [facility] Comment on above: Performed By: #### Shakeel CANCINO, CMP, 3039-3 #### [facility] ([id number]) [address] [place] [address] 14838 Specific gravity (U) [Rel density] 1.020 Normal 1.003-1.035 [facility] Comment on above: Performed By: #### Shakeel CANCINO, CMP, 3039-3 #### [facility] ([id number]) [address] [place] [address] 50775 SQUAMOUS EPITHELIUM 2 /hpf Normal 0-5 [facility] Comment on above: Performed By: #### Shakeel CANCINO, CMP, 3039-3 #### [facility] ([id number]) [address] [place] [address] 70554 TURBIDITY CLOUDY Abnormal CLEAR [facility] Comment on above: Performed By: #### Shakeel CANCINO CMP, 0-3 #### [facility] ([id number]) [address] [place] [address] 08682 Urobilinogen Qn (U) 0.2 {Pepito'U}/dL Normal <1.1 [facility] Comment on above: Performed By: #### Shakeel CANCINO CMP, 3039-3 #### [facility] ([id number]) [address] [place] [address] 77488 W.B.CELLS 1 /hpf Normal 0-5 [facility] Comment on above: Performed By: #### Shakeel CANCINO CMP, 3039-3 #### [facility] ([id number]) [address] [place] [address] 29742 CBC AND AUTO DIFFon 07-11-19 24 ABSOLUTE BASOPHIL 0.0 X10E9/L Normal 0.0-0.2 [facility] Comment on above: Performed By: #### Shakeel CANCINO CMP, 3039-3 #### [facility] ([id number]) [address] [place] [address] 28192 ABSOLUTE NEUTROPHIL 9.7 X10E9/L High 1.5-6.6 [facility] Comment on above: Performed By: #### Shakeel CANCINO CMP, 3039-3 #### [facility] ([id number]) [address] [place] [address] 91611 Basophils/100 WBC (Bld) 0.2 % Normal [facility] Comment on above: Performed By: #### Shakeel CANCINO CMP, 3039-3 #### [facility] ([id number]) [address] [place] [address] 54033 Eosinophils (Bld) [#/Vol] 0.1 10*3/uL Normal 0.0-0.4 [facility] Comment on above: Performed By: #### Shakeel CANCINO CMP, 3 #### [facility] ([id number]) [address] [place] [address] 36774 Eosinophils/100 WBC (Bld) 0.5 % Normal [facility] Comment on above: Performed By: #### Shakeel CANCINO CMP, 3039-06 #### [facility] ([id number]) [address] [place] [address] 93662 Erythrocyte distribution width (RBC) [Ratio] 13.4 % Normal 11.5-15.0 [facility] Comment on above: Performed By: #### Shakeel CANCINO CMP, 3039-06 #### [facility] ([id number]) [address] [place] [address] 47885 Hematocrit (Bld) [Volume fraction] 37.1 % Normal 35-47 [facility] Comment on above: Performed By: #### Shakeel CANCINO CMP, 3 #### [facility] ([id number]) [address] [place] [address] 86251 Hemoglobin (Bld) [Mass/Vol] 12.6 g/dL Normal 11.7-15.5 [facility] Comment on above: Performed By: #### Shakeel CANCINO CMP, 3039-06 #### [facility] ([id number]) [address] [place] [address] 68168 Lymphocytes (Bld) [#/Vol] 3.1 10*3/uL Normal 1.0-3.5 [facility] Comment on above: Performed By: #### Shakeel CANCINO CMP, 3 #### [facility] ([id number]) [address] [place] [address] 99431 Lymphocytes/100 WBC (Bld) 22.3 % Normal [facility] Comment on above: Performed By: #### Shakeel CANCINO CMP, 3 #### [facility] ([id number]) [address] [place] [address] 42611 MCH (RBC) [Entitic mass] 28.3 pg Normal 27-34 [facility] Comment on above: Performed By: #### Shakeel CANCINO CMP, 3039-3 #### [facility] ([id number]) [address] [place] [address] 80239 MCHC (RBC) [Mass/Vol] 33.9 g/dL Normal 32-36 [facility] Comment on above: Performed By: #### Shakeel CANCINO CMP, 3 #### [facility] ([id number]) [address] [place] [address] 49900 MCV (RBC) [Entitic vol] 84 fL Normal 80-100 [facility] Comment on above: Performed By: #### Shakeel CANCINO CMP, 3 #### [facility] ([id number]) [address] [place] [address] 73043 Monocytes (Bld) [#/Vol] 1.1 10*3/uL High 0-0.9 [facility] Comment on above: Performed By: #### Shakeel CANCINO CMP, 3 #### [facility] ([id number]) [address] [place] [address] 75769 Monocytes/100 WBC (Bld) 8.0 % Normal [facility] Comment on above: Performed By: #### Shakeel CANCINO CMP, 3039-06 #### [facility] ([id number]) [address] [place] [address] 43840 Neutrophils/100 WBC (Bld) 69.0 % Normal [facility] Comment on above: Performed By: #### Shakeel CANCINO CMP, 3039-3 #### [facility] ([id number]) [address] [place] [address] 44616 Platelet mean volume (Bld) [Entitic vol] 8.3 fL Normal 7-12 [facility] Comment on above: Performed By: #### C BARAK CMP, 3040-3 #### [facility] ([id number]) [address] [place] [address] 84651 Platelets (Bld) [#/Vol] 380 10*3/uL Normal 150-450 [facility] Comment on above: Performed By: #### Shakeel CANCINO CMP, 3039-3 #### [facility] ([id number]) [address] [place] [address] 53767 RBC COUNT 4.43 X10E12/L Normal 3.80-5.20 [facility] Comment on above: Performed By: #### Shakeel CANCINO, CMP, 0-3 #### [facility] ([id number]) [address] [place] [address] 48657 WBC (Bld) [#/Vol] 14.0 10*3/uL High 4.0-11.0 [facility] Comment on above: Performed By: #### Shakeel CANCINO CMP, 0-3 #### [facility] ([id number]) [address] [place] [address] 89881 COMPREHENSIVE METABOLIC PANE Alex 07-11-2023 Albumin [Mass/Vol] 3.4 g/dL Normal 3.2-5.3 [facility] Comment on above: Performed By: #### C BARAK, CMP, 0-3 #### [facility] ([id number]) [address] [place] [address] 54169 ALP [Catalytic activity/Vol] 65 U/L Normal 39-130 [facility] Comment on above: Performed By: #### Shakeel BCA, CMP, 0-3 #### [facility] ([id number]) [address] [place] [address] 61874 ALT [Catalytic activity/Vol] 13 U/L Normal 0-31 [facility] Comment on above: Performed By: #### C BARAK, CMP, 0-3 #### [facility] ([id number]) [address] [place] [address] 98244 Anion gap [Moles/Vol] 4 mmol/L Low 5-15 [facility] Comment on above: Performed By: #### C BCA, CMP, 3039-3 #### [facility] ([id number]) [address] [place] [address] 04271 AST [Catalytic activity/Vol] 14 U/L Normal 0-41 [facility] Comment on above: Performed By: #### Shakeel CANCINO, CMP, 3039-3 #### [facility] ([id number]) [address] [place] [address] 19735 Bilirubin [Mass/Vol] 0.5 mg/dL Normal 0.3-1.2 [facility] Comment on above: Performed By: #### Shakeel BCA, CMP, 3039-3 #### [facility] ([id number]) [address] [place] [address] 99807 Calcium [Mass/Vol] 8.2 mg/dL Low 8.5-10.5 [facility] Comment on above: Performed By: #### C BCA, CMP, 3039-3 #### [facility] ([id number]) [address] [place] [address] 09569 Chloride [Moles/Vol] 107 mmol/L Normal 98-109 [facility] Comment on above: Performed By: #### C BCA, CMP, 3039-3 #### [facility] ([id number]) [address] [place] [address] 04723 CO2 [Moles/Vol] 20 mmol/L Low 22-32 [facility] Comment on above: Performed By: #### C BCA, CMP, 3039-3 #### [facility] ([id number]) [address] [place] [address] 98361 Creatinine [Mass/Vol] 0.59 mg/dL Normal 0.40-1.00 [facility] Comment on above: Result Comment: METH OD TRACEABLE TO IDMS STANDARD Performed By: #### C HILLARY CANCNIO, 3040-3 #### [facility] ([id number]) [address] [place] [address] 57578 eGFR (CKD-EPI) NON-RACE DEPENDENT >90 Normal >59 [facility] Comment on above: Result Comment: Reported eGFR is based on the CKD-EPI 2020 equation that does not use a race coefficient. Performed By: #### C HILLARY CANCINO, 3039-3 #### [facility] ([id number]) [address] [place] [address] 82933 Glucose [Mass/Vol] 91 mg/dL Normal 65-99 [facility] Comment on above: Performed By: #### Shakeel CANCINO CMP, 3 #### [facility] ([id number]) [address] [place] [address] 28885 Potassium [Moles/Vol] 3.9 mmol/L Normal 3.5-5.0 [facility] Comment on above: Performed By: #### Shakeel CANCINO CMP, 3039-3 #### [facility] ([id number]) [address] [place] [address] 66869 Protein [Mass/Vol] 7.1 g/dL Normal 6.0-8.0 [facility] Comment on above: Performed By: #### C HILLARY CANCINO, 0-3 #### [facility] ([id number]) [address] [place] [address] 28423 Sodium [Moles/Vol] 131 mmol/L Low 134-146 [facility] Comment on above: Performed By: #### C HILLARY CANCINO, 0-3 #### [facility] ([id number]) [address] [place] [address] Urea nitrogen [Mass/Vol] 5 mg/dL Normal 5-23 [facility] Comment on above: Performed By: #### C BCA, [facility], 3040-3 #### [facility] ([id number]) [address] [place] [address] LIPASEon 07-11-2023 Lipase [Catalytic activity/Vol] 28 U/L Normal 17-40 [facility] Comment on above: Performed By: #### C BCA, CMP, 3040-3 #### [facility] ([id number]) [address] [place] [address] SARS/FLU A+B/RSV by NAAT/Mol ecularon 07-11-2023 SARS/FLU [...] operators who are performing tests using either [employer] or [employer] systems and is limited to laboratories that [...] repeat. Fact Sheet for Healthcare Providers: https://www.fda.gov/ media/196710/downloa d Fact Sheet for Patients: https://www.fda.gov/ media/734935/downloa d [facility] Comment on above: Performed By: #### C OVFLR #### [facility] ([id number]) [address] [place] [address] 39853 URINE CULTUREon 07-11-2023 Bacteria identified Cx Nom (U) CULTURE RESULTS 10-50,000 ORGANISMS/mL NORMAL UROGENITAL JONNY Normal [facility] Comment on above: Performed By: #### 6 30-4 #### [facility] ([id number]) [address] [place] [address], [address] [place] [address] URN MACROSCOPIC NURon 2023 BILIRUBIN NEHA Negative Normal NEG [facility] Comment on above: Performed By: #### N UM #### [facility] ([id number]) [address] [place] [address] 54154 BLOOD/HGB NEHA Negative Normal NEG [facility] Comment on above: Performed By: #### N UM #### [facility] ([id number]) [address] [place] [address] 13313 GLUCOSE NEHA Negative Normal NEG [facility] Comment on above: Performed By: #### N UM #### [facility] ([id number]) [address] [place] [address] 26357 KETONES NEHA 40 mg/dL Abnormal NEG [facility] Comment on above: Performed By: #### N UM #### [facility] ([id number]) [address] [place] [address] 63166 LEUKOCYTE ESTERASE NEHA Negative Normal NEG [facility] Comment on above: Performed By: #### N UM #### [facility] ([id number]) [address] [place] [address] [place] [address] NITRITE NEHA Negative Normal NEG [facility] Comment on above: Performed By: #### N UM #### [facility] ([id number]) [address] [place] [address] 86209 PH NEHA 8.0 Normal 5.0-8.5 [facility] Comment on above: Performed By: #### N UM #### [facility] ([id number]) [address] [place] [address] 48612 PROTEIN NEHA Trace Abnormal NEG [facility] Comment on above: Performed By: #### N UM #### [facility] ([id number]) [address] [place] [address] 51487 SPECIFIC GRAVITY NEHA 1.020 Normal 1.003-1.035 [facility] Comment on above: Performed By: #### N UM #### [facility] ([id number]) [address] [place] [address] 52121 UROBILINOGEN NEHA 1.0 eu/dL Normal <1.1 [facility] Comment on above: Performed By: #### N UM #### [facility] ([id number]) [address] [place] [address] 24291 URN MACROSCOPIC NURon 2023 BILIRUBIN NEHA Negative Normal NEG [facility] Comment on above: Performed By: #### N UM #### [facility] ([id number]) [address] [place] [address] 69109 BLOOD/HGB NEHA Negative Normal NEG [facility] Comment on above: Performed By: #### N UM #### [facility] ([id number]) [address] [place] [address] 21314 GLUCOSE NEHA Negative Normal NEG [facility] Comment on above: Performed By: #### N UM #### [facility] ([id number]) [address] [place] [address] [place] [address] KETONES NEHA Negative Normal NEG [facility] Comment on above: Performed By: #### N UM #### [facility] ([id number]) [address] [place] [address] 26571 LEUKOCYTE ESTERASE NEHA Trace Abnormal NEG [facility] Comment on above: Performed By: #### N UM #### [facility] ([id number]) [address] [place] [address] [place] [address] NITRITE NEHA Negative Normal NEG [facility] Comment on above: Performed By: #### N UM #### [facility] ([id number]) [address] [place] [address] 28117 PH NEHA 7.5 Normal 5.0-8.5 [facility] Comment on above: Performed By: #### N UM #### [facility] ([id number]) [address] [place] [address] [place] [address] PROTEIN NEHA Negative Normal NEG [facility] Comment on above: Performed By: #### N UM #### [facility] ([id number]) [address] [place] [address] [place] [address] SPECIFIC GRAVITY NEHA 1.025 Normal 1.003-1.035 [facility] Comment on above: Performed By: #### N UM #### [facility] ([id number]) [address] [place] [address] [place] [address] UROBILINOGEN NEHA 0.2 eu/dL Normal <1.1 [facility] Comment on above: Performed By: #### N #### [facility] ([id number]) [address] [place] [address], [place] [address] Coding Summaryon 05-31-2023 Coding Summary HTMLBase 64 MupfnvcsPUg2gHt+PGhl YWQ+OO3VTKBcD28uzKAy yL0tG8BHHKlASlhmXCHO LKjKNgHahdOuQS6ieRRl ZXJu IC8+HZ8wBMYlDdkrbRZs g5R4qTO7A98ooi7tFRke mVJ7WPRfQfKwrihod1yc jIm0NIiiPnspIxPu DIQneV66YYC8gY95Cb70 iIYuiRSvm7rqzNb8BiBp UWFkAGI3pDncLBsov3Nb SUOpU82cbWVko7Y9 IGNvbGxhcHNlOyBlbXB0 vL3dNIkieafec6eayoks Ign2dd31rMTfb6C9jZH4 E9OkhdU6JUTtnTNh HlbagKKPaY1puxuoo9kl yaajIbBxHKObVCj7WFo9 YDOvfNjeSbSuPH93NOI4 TBKcqxZuZ7KbJGAu yTviQsR5u6G8Gq7JR8FK GgcnZ4HGQTPSXAutoDL+ MX16es86W6AfIzozUrk0 NKYlFOR6qXD7zS2v LHLeZWnsx2Z0dMI8S3Ok hsTfjd7vy0saNDEtQSxu F87msZMgi8P6PNKvfLE0 YMJamCroBwRlyC63 Oyc+DANvcFyeh5XfPlsw w7txy4stwVg2TfrjIRBh ryVxfQiuEEJ7u8CeQy1b HSUgpDZ0kHF8dO2d PpVhBuB0CGjoB368AmOp uMIzFszdA45eB5EwrIJ+ BYAkIgu2TXWefRubRV4p N9UkZYCpuiqrsBWq xJvcBZ8lQCQgrttjASJm hL7kJLQdQ0e6IuAbQaU3 RCkaE4FvNVIdigojSo01 jW2cMfWmSkP1FVrl Y1GhllD8QUYcpOObBEhz THM9W57dy4W8XLQuJVUs YXN0lSW3pE3daGpatdun bGVmdDsgdmVydGlj BPsuYQmtB195UDCilEpw PkNvZGluZyBEYXRlOiAg MDIvMjMvMjAyNDwvdGQ+ TAPcXIQ8wZrtCOXs dVRaLWduPo9enVljgGvi RA9nMIRwqikgBGBzyW4k VNOjfECfcEaxIR3wBUCx tremj072YtZtEDL8 YTYrsTOwC1UprR4aYtGi JMFaXPXpZ2LycGNgUEpc Y951WYqcZqT3VODmcwMn D1QyQKYztZgqQrW3 y0P1Om5Mm4GhwupfW4Lj cNQmGsTjOemmLXh7K2Ec PjwvdHI+QG12OQVoFI62 ILa3CAD0lZvbILld NVNmZ8UxxY0vRsVlMYWx ZGRkOyc+PHRhYmxlIHdp ZHRoPScxMDAlJyBzdHls FW2iYg8jJVYpWDOy jZoyzRUdRwNbz9enRDUy TMkuOD3kbAihO4GkqSN9 YRZew7s3We78D97gX3Wk dXA+EVKfeIF0wRX9 zB6cJnOeObG3VEifS710 UaMhgWAuAfygh5rvr0ln mBj0InU4XHTtlzGltXwy IDB4z1RgBb11Q72i IHdpZHRoPSIxNSUiIHZh wGbyjy1egJ9aJp2+PGNv pFM3hLG6eB4lXlBjFqA6 EZzaZ441JeYnfLZr Fhrwd2hqy4uklSd5DdJf HCMtzgZsrXjjHOG4l2Rv Hh09N5RgcFnqy3YgMgc7 jk96gXYrl3A4zSU8 J4QmBJDxppixeZHtzPdk QC3eZWWdgdszSHNqpQ5u ADNlG5e2VnMsIzH9CYcj H8YgerZ2ITMpiEUp TOAqsMREjQ4jioefc7og rolyDrQpKYSmKJr7NTz0 ROOfsLhiPwYgCFX9MlC1 LGY3mHXdgQ9qjRws tlaxcS9qSlw+ZAB1kRRm xNXHTN1oAnvvdKS+PHRk ANY4pUxkRQnqCCHxtL3s BEGiC6g7OkRgKhY7 KRlmL9FbxlY9BFUqqDWq DQBbpGXPoD0copmnj3xb etqeUjYlACKwKQv9HSi8 LWFsaWduOiBsZWZ0 UnP8WCR6wTAodP9caWiv mfqmwN3qSxa+QmlydGgg OYT4BLa9U7GgKwf3ODIu cTraJS4khTJjPBfe Qh4giIhuoWrmHD7cFWJc bbxoz589UbKiz2efCFPe oWXrKEwzWMY0I03jf3R6 HPDgAGSzEYC6fXU7 cL8nkYdjqmjoxEGqnOdx yyUowBekJIdeTXdlT424 VFOmuJunIoUhVQd8Z7Hw Usd5QENuzVrkWQ0z rSFqVLxxHs4oeMshpWkz LX1yYMHdkjemv325GdOk m8rsAGKquORrEMhzZKN9 G44gb8F3EHOtNQMp IKD6qGR7eK5xgHbkchrz bGVmdDsgdmVydGljYWwt WCgqI584VRMxeIydOqKq rGr0T6ApQtd5IVFe pEpwTO7atDIbEWmdVn1o mJsczBvqQT3lNITdcjpq c050UaLqq8fwADLxsXNi PFfeIDD5B50ij4G3 FQLvEVGvQFB4rSJ6hH8s bGlnbjogbGVmdDsgdmVy vZovISlaTJdrV151WEYr cDsnPlBhdGllbnQg OAyyGYk0H4GyPmlblKK+ WE76WUImRY43dYRoaMDu m7hscUm1GgLlDHBfWRP5 aGrhBSiry4BbXOVe C74rqZAzw9P6WVNchMdm qPZoZkVasBM3eC0rKYxs ygpqs3zsqzisJerxe6qt ox74oK33V94xAQgu ZHRoPSIzMCUiIHZhbGln ap3vnK8jEu6+PGNvbCB3 jQY0cS7aFEZpCnB6UZyp R155QqFpbJTxRwql d7fdw1ohlAs5YdY8MYAu kiPncEjkFRA3w1FmNe25 W75cYZioRSAkEONwADCo DLIoxTpanm9jcY0a Ii8+UAQzyOA7xOR5vI5r YnWdQlE5LKhyT721CqVe uYUgGygpK05eI0RaxRV+ MXVmDcg8PYFkrDcm IG8gqJEoHHqbVf1uYGC1 CpBrXhIiXKcaS0ViFAMh hzqlnzbfhBI5IWThPGFy nX77Wl1bgTzpWUOx bEQKoO4auibtr5mexcth XmHnDULwWHf2JFs8EUPc bAuoHnHxPJI9SxO5NSZ1 cDZvbQ9weHrgnwhj bT4uZ8MwMZWsyidlKt54 nR3vRbVfBaO0DLeeEgz+ P3dBTtINAWycB2lFVHOC JLbMEQ2JDOuliWI+ WDSsEOS7lAkrZCvnVHRw nL3eJGJoD9o3CfZgHpX2 XTwrH3WlDWQgpvdwIp09 vE4fPbJjYiK4JAgr O4XmlcU4NFSjoBViUTuv ELS6O53mq4W8FTCaKOQn KWN7eZR0sB5pdWxawolp bGVmdDsgdmVydGlj DAotHAacY167ERNreGme QlL0QjIkBsDbMDD6D0Bu Jkz4UUCziJmrNK2ylPKx JAmzAq4nmRkhvIwq EF7jCIAmkhoeADVabV0o VYYesFMsiUqwNQ0mPIAe aifya948YrWeQTF9MBTj oPSrB6McsH1xVgNz TQVfRVQaL1XbkQJzLRkh L244MXbjFyM9SLIcfcDt T0XhNJAxbWepReT5y3W5 Cu7lNZLQQVXapmyd dGQ+DYQtILL8qVhkHSiy LDJqmJ8mFRVwT9r4GbTh DxY8XWzqY0XjYNSokrwh Me90eS8iLpFoFgX7 OAekK8DgxnX6JVLwqQUj WTpvHGG0Z46tq3J7VPSt ZXFzZQJ9bMZ1sN8agUma bjogbGVmdDsgdmVy wGupBDxvKBroL432VVFa cDsnPkZFTUFMRTwvdGQ+ RKMbTSD0uGfwMTouQKUr kW9gDCNpV3o0EgDy AmO3RFdcS4GiCDCceayr Ci52iA6gDoXgFlK4KHlc K7PodaY6LSVvcRQeFSgt WGY4W93xv7G4QCOz QSJbCXU0vWA3eA7dzYna bjogbGVmdDsgdmVydGlj TVwkOLlhU035COHjwLav NsViQKRcMA9hiBvb dGQ+WF49xc75M5DuKhlj Dwe1UISaDZM9kEM6zM1x WPGvUOrop1G0tCZ6E4Ed kdYmlk9nx1ayJZRy TOlfU48baCYjd5K6UIPt zJI6NZIcoMoqUySbaX76 Oyc+GYRjfTqos2DpLpqw o7hpf6vdfFz6SmUl FMEulsUusAvcGEH7k6Iw Eq99I39mMUkaVKYrOUEw DCVwKESuqHptkl1rcO8n Ii8+BVXloTF6rAH5 rD8cJwSaHpI5QQziH887 XiIamXHnUfnhc1iyp7zu kAe7YgNdQJCkcfExpAqh BKQ7q4ApPq30U6Wp rLqxj9BkBfv0ug47iYWe x1C8tIR1F9CsCXDjuvwn bXDhlFsmEK8aRSLmsquw WIDldZ7dZCAzJ7g2 VzWiEcN1GMhlU6XfqtN7 BRUfuIAgZWTtvLPShF8t rwotx1qqguirMzCtAABz VZp0NQt6GBUziBst EmKyKFQ4RpS5EPA4gSGw rK1dwDunsysvjO6iBli+ VXi1w1sojJHjQX4cgGA2 BL90DE42yZRus5Q9 eTY0G6NhLRXgjqbagtxq oOQ0YNLfHKSxuC07Rw1x lBvfYo3dNGQlAUV3IUWb pPKdN0BjoJ9cDyGt NCFbVVRyW5BixYVhQGgo E293MSegYxG8QDQpliFh G7ZaCFFgwAkrNoK0f9X5 Gw4OQC45HG67RR69 tDJet6N4rNS1O3VpIBYa kuzyunbubWA4ILVzBCBn pC77Ia9bePhySg3dSDLg OWY5PGRqlGChA3Vp fA9oAjPnWYZtSPVzF1Un rTVfFFgtS560NEnhBvW4 VWPtorUtC2LdZZGpdWnu UmD1i8F3He1MWg40 PE78UX99nQMhh6N9pWC2 K9EbMGCgsjgligmnqNA5 KYDbUEPpwY63Ab7xcNwd Wb8sIUHzBMR4EXLc zRPvI8HesC5zFmRbFCWa NQQbE2PwrZGpOTikJ449 BItoEeB5PRFgvtGnS6Ug EPZnjMyoNeH2h1M9 Ic0NCPyhxmy3F9AiVsuh dHI+PE25SPPyRP22fIHn cJHgb2klyFj6BjQcKNYj SNU6uYwoRXomm1Ze ZXI (more content not included)... Normal [facility] C Throaton 05-28-2023 C Throat Ordered by Radha. Normal throat jonny isolated No pathogens isolated [facility] Comment on above: Performed By: #### 1 [id number], [id number] #### [facility] (DEFAULT) [address] [place] [address] .QC SARS-CoV-2 (COVID-19)/Fl u/RSV (GeneXpert)on 05-26-2023 Internal Control Pass [facility] Comment on above: Order Comment: Order ed by Radha.[[email or web address]] Performed By: #### 1 [id number], [id number] #### [facility] (DEFAULT) [address] [place] [address] COVID/Flu/RSV (GeneXpert)on 05-26-2023 Flu A (GXpert COVFLURSV) Negative Normal Negative [facility] Comment on above: Performed By: #### 1 [id number], [id number], [id number], [id number] #### [facility] (DEFAULT) [address] [place] [address] Flu B (GXpert COVFLURSV) Negative Normal Negative [facility] Comment on above: Performed By: #### 1 [id number], [id number], [id number], [id number] #### [facility] (DEFAULT) [address] [place] [address]85[address] RSV (GXpert COVFLURSV) Negative Normal Negative [facility] Comment on above: Performed By: #### 1 [id number], [id number], [id number], [id number] #### [facility] (DEFAULT) [address] [place] [address] 28144 SARS-CoV-2 (COVID-19) RNA MILY+probe Ql (Unsp spec) Negative Normal Negative [facility] Comment on above: Result Comment: Perf ormed by PCR methodology. Performed By: #### 1 [id number], [id number], [id number], [id number] #### [facility] (DEFAULT) [address] [place] [address] ED Clinical Summaryon [address] [facility] - Emergency Department [address] [place] [address] ED Clinical Summary PERSON INFORMATION Name: LIA DESAI Age: 22 Years Sex: FEMALE : 2000 MRN: Acct#: Visit Reason: Diarrhea; Fever; Headache; Throat pain - Adult; Body aches; HEADACHE, FEVER, BODY ACHES Arrival: 05/26/2023 17:02:55 Discharge: 05/26/2023 18:57:00 LOS: 000 01:55 Check In: 05/26/2023 17:02:55 Checkout:05/26/2023 18:57:00 Address: [address] [place] [address] PCP: ROBERT MARRERO PROVIDER INFORMATION Provider Role Assigned Unassigned Ysasine Maldonado MD ED Provider 05/26/2023 17:04:17 [place] [employer] TECHNICIAN Nurse 05/26/2023 17:19:42 VITALS INFORMATION Vital Sign Triage Latest Temperature Tympanic Temperature Temporal Artery Pulse Rate O2 Sat 97 % 97 % Respiratory Rate 16 br/min 16 br/min Blood Pressure /71 mmHg /71 mmHg MEDICAL INFORMATION Medications Given: Allergy Information: Adhesive Bandage; Zithromax PHYSICIAN DOCUMENTATION DISCHARGE INFORMATION: Discharge Disposition: Home Discharge Location: Home PATIENT EDUCATION INFORMATION Instructions: Hypertension, Adult, Ayzz-iz-Rqbp; Nausea and Vomiting, Adult, Gomu-cn-Rgdu Follow-Up: With: Address: When: ROBERT MARRERO [address] [place] [address] Within 3 to 5 days DIAGNOSIS: 1:Nausea vomiting and diarrhea; 2:Elevated blood pressure reading; Diarrhea, unspecified Patient Understands: Yes - Patient/family/careg iver verbalizes understanding of instructions given Comment: Normal [facility] ED Patient Summaryon [address] [facility] Emergency Department [address] [place] [id number] PATIENT DISCHARGE INSTRUCTIONS Patient Information Name: LIA DESAI Age: 22 Years Date of : 2000 Reason For Visit: Diarrhea; Fever; Headache; Throat pain - Adult; Body aches; HEADACHE, FEVER, BODY ACHES Arrival Time: 05/26/2023 17:02:55 Primary Care Physician: ROBERT MARRERO Attending Physician: Yassine Maldonado MD Comment: Visit Diagnosis: Diagnoses This Visit Body aches ([id number]) Diarrhea ([id number]- [id number]) Diarrhea, unspecified (R19.7) Elevated blood pressure reading (R03.0) Fever ([id number]) Headache ([id number]- KT5D-[id number]) Nausea vomiting and diarrhea (R11.2) Throat pain - Adult ([id number]- [id number]) The Pharmacy at [facility] is open Saturday through Saturday from [...] [facility] [place] 29/10 Crisis Hotline -Text 5SSLY tn [phone]. If you received any narcotics, sedation, or [...] With: Address: When: ROBERT MARRERO [address] [place] [id number] Within 3 to 5 days Medication Information: The exam and treatment you received today in the [facility] Emergency Department were for an urgent problem and are not intended as complete care. It is important for you to follow up with a doctor, nurse practitioner, or physician?s radiology assistant for ongoing care. If your symptoms [...] so we can reach you if necessary. [facility] Emergency Department has provided you with a complete list of medications post discharge. Please inform your core drill operator/provider of your visit and for further instruction [...] pressure an (more content not included)... Normal [facility] Strep Aon 05-26-2023 Strep procedure control Pass Normal [facility] Comment on above: Performed By: #### 1 [id number] #### [facility] (DEFAULT) [address] [place] [address] Streptococcus A Negative Normal Negative [facility] Comment on above: Performed By: #### 1 [id number] #### [facility] (DEFAULT) [address] [place] [address] Coding Summaryon 05-20-2023 Coding Summary HTMLBase 64 ExnxatciODq3zZi+PGhl YWQ+HL0JUPYgX33uxJFt jQ3bV1APCMbYXjqnJMQX FVaFLhAjbnJeMZ4ziHRv ZXJu IC8+CM8xQPLmMssmrCFd k0Q0xTS0P83gaz7bXRgj nSG5XCWkOyPeyayqw0kn lHs0EBfbFytnSxMh WYXosE76RYG4qE85Vk08 eMMnbLCnu7lncEg6DrQw LOInPES0cYldLPmjc4Dr DBTjP32cxJBzx9V1 IGNvbGxhcHNlOyBlbXB0 nP5hJArxyrvtd8wtjkmb Zgf1hq37bUEqy0H0mTA4 H9IrcaH5GCCzbIZv WeidoMNBrU5swpdjp0ra fhdoEzJiENHsJXv2RBj8 HENldFvhYjHcDX49LKV8 RLUrmbEgU8GgTKSg gYmeArC0r0P3Rv8AR6EF HsqnD1QCJMHPQGmppDB+ FI55fa13Q7WfIrbhWfc0 MAYhARA8oZD6qX1g IVJwBHktt5T8kLO7W7Uv gwTwmi1xu0xkKIHgQWih L60psJJzu6M9AXCpdEX0 OTFtkWevUfYdaB05 Oyc+XHZqwGrjk9HqLwqu g5gke0yosTt6FiszCPVb suXvdBkyHSK1v8YaLo5b CVWmsAH9qFR7qU0q PfAkDwD4XTnmN223LnTx wFPoEhkyD53dD8DzpKK+ GEIpAyq7QWZkxSzmZD1e B5KuJOFncltwyRTj aMsaKB6zQGQqkwovWAZa uZ4tQESwM8z1CsOgEhA7 JFvaP3CsRZRwwkstSk16 yG1dVyBsKxG3DSlb F0ZpsgH0UWLjuTEuEGeg ZKW0M90sl1O9RNJsZXOh GKF9uOR9zE6hkXbhhzfx bGVmdDsgdmVydGlj FSvpZSmdV833DTIbiMzs PkNvZGluZyBEYXRlOiAg MDIvMTIvMjAyNDwvdGQ+ ZXVuXUS5cVmgIHRj rORhLYbgYr8odJttbFht ZC4cTXBgqoawHYDcjI7w WHRvrPDyaGoaRH0eKCCx jbikj485EjDnEXA0 RFHfsNSlB9GsoK5hApKx MAAwCRBvJ2GyoSSnVRzu X796EMfkOxR2ZPAlowNy G8GmJCAftCiqHrQ1 p6Q3Ib1Tx1XhaypdD8Ut wDJfKxXkWmftNXe3M3Xt PjwvdHI+ED24TIQhWB73 BPm4TIM0fJrrDZnk QBZhB5SouI9sIgZeKTBb ZGRkOyc+PHRhYmxlIHdp ZHRoPScxMDAlJyBzdHls OE6eVh7yBIOtAOEp tFhruUCxTnLxj8iaMOAt VIuyNZ4jyEvsK8WqhEO7 XMFod5x0Qa12M58nY0Ba dXA+OSGahSR5dGB1 tR3nCiTuRtE4WKrxP171 OrBufRQbMkgdc3rpa8hg pKb9YwZ5XXUwhoQmiYnt GTU4c7LgMp31E22t IHdpZHRoPSIxNSUiIHZh fTvngr1ftL2gHf7+PGNv jEN9aKB9gU0tJlAxKrR1 PKdoR872WyTexXWp Cuyzr8xhr7vjgEw0ZiPp CSLhywXbnBzzYZB4j7Ze Pz57U1LtkTuqa4HqJjv3 ra47qLCcy5U4iUF8 A8FbKTXwjxfzsMYfnVdq AD5rKVMxnfhoFPTfuE7g BGCfH3o1XiJyWgU3YAdd V2PohiG1OQOhzFPk TAEywCQQiQ5zpshln2rl hxkkYvSqVDMsKTq1DKr1 YCFohSjyZrOkPYH3MgR8 KSN7hXLpgM9hqSbl jsxwgL9uCzv+DDI6eNHm lWZISN7dQxndrMM+PHRk BIY9xKtfYQbzJDTfrX4r DKGlM7i4OyUuXtO5 ALmfA0NkjeR2NDFpfJWf IKWtlFXBqW3meeuab9vl iyleFfGzJSBdYKt1USb9 LWFsaWduOiBsZWZ0 RmO9BXS7rBYraT0kqGur xjsttZ4rEqy+QmlydGgg JTY4FOx2Q9NmTcl9DXYm bHuuTC1qpQWzNMbe Er3hsUnkmYmoDT6kNDAx remgs856IjTun0zzKCUy eEXtSCruYHB2V47so2F2 RHYiZKIdRJP4uXN6 jD2tjZgjkdffhVKegDay fgSuwEadVCtgLGutV213 ARGcnLzzZkOlSQw5X3Tn Rov9NRFxsPjsYS5z lNKqAQmsJt5usBynqIgs KA2eVOXzyjqqt158JrNt k6oiRFDwpBLnRCckIBQ5 U78ro4V8MQCsNTXn DZN9wJZ3zJ5cxCurlmuk bGVmdDsgdmVydGljYWwt NZogO314URQprOfpFwRk zNz4L3XpLsd3GVUx sZbzYQ1inDKxMJzuZe7k rQhxgUwqYE7pIMZkcrwu r232VpNlz6kvLDTeuTFq XShpAPG7G08gy1U5 DKYcQWKkUWN3aAA5vP8x bGlnbjogbGVmdDsgdmVy xDisWRwxPEnfR581PURc cDsnPlBhdGllbnQg LWjzQYh5P9RuEidyaEH+ WS52DXDrJM63wCBymPAq y5zogLz5JlEwXLAvZUK9 qCtqTZbrp2CkPOWo H35erCGwl7B6CYEnhTfy sNXaBgLdxXZ5iP6wNLqb qzkfi1qewcrxLveqa0ab be04uO14H76uSCsr ZHRoPSIzMCUiIHZhbGln oq9brR5dVk0+PGNvbCB3 eVK4wQ0lVVRbDmO6NViy L978ZaTmvKRxTmuu h5iqp4pxpRt0JzO2EFLc rfRuxXysVFZ9g7ZgHj95 R41cIXooNRFvLHKuOCWh GESzpDcytw7htJ3g Ii8+ODVjhTU8zMD0nH3z BzXnZzU3PHqyB496XzBg pFMjPgxdM89nH8LzxVP+ MZAoGth5MWZtmQov VI8dlGVhDVarFb5vVYK1 PwJbIaTsOWrpF2SyIBNn dzlpfxjwfUN5NCJfKZJt yU52Wg0nlNzpXWCp cJWCvY6wgnkga8pnoxog KoAnDKXoXDg3WBd8JQYq yHjoUpUmTRO7CbB4HTN3 xNOnzC0izCooswub bS9xB5YnIELwyuxeXx92 jU7fRxUnTkF9MInzMzq+ F6iYEuSDOCbdY7nXBFLG HCxWYV1BYIuiwDS+ DUUbRJY6rAamNSoyUQMy eB1lRSLtL7e8NaLzMgJ8 YHihO6GuXICwnfybQc67 vA0zOoZjDgT0DKrc S1ZaukU6FICxgKRgJErt XYE6X64vo1N1OXVhXQSi SKD1zMV6bC7ioOpknoat bGVmdDsgdmVydGlj GNpiMCgwW454LVFrsNaa ZyP5ZaNyOjKqGQW1G4Un Vqb5IANuxVzbVR5gzJGo LRcaHx5ucIrfyHip WT4kWKTrfxicMHSqqM0p LQZbiRUdvFgbNH3vXEBn uenhm668AuCrSGW4ZQVp gLZdS6SamI4sNfFv EISyZZFjE5CuiKQyIItn I937VRlcGiT4KDXqhhQn K4PjZJVdiYusXtQ2q3I3 Hr0bZSFPDOSohtri dGQ+VBVwVGS5gOcwPGth OWOreB3pPERlW7e2JcWt LzP6SQxyX8KiVQXmstgy Od76aX7xXnFhDzV8 QWlpP8NkvkE7YAEqvBPz BCkfNYI6I80bf9C4NZXs NZFoQMN9xJV6oQ1bxHxs bjogbGVmdDsgdmVy kDdaPPlxVAleS742VQIp cDsnPkZFTUFMRTwvdGQ+ KZCfORV6zZpqQRsbQZIw dV2rNOOzL0p8AkAe JzY6DQjqN4ToOUIlhufx Lx84hU0dAzTbCuY9YDbv R3AtifZ5LOSddNSiNPfk XKG9J26cf0N3EQNg CNDdGLA9iKB0cX0wuEni bjogbGVmdDsgdmVydGlj RGbkMOdiY688TEKnpNpf VwFmHTQvGN5unTev dGQ+PB45mt99C8UeYrro Sly4LPNwHJJ8uBY5sC2f IVObWPnpp2G1qTR7B0Fh hyXdvk9hz0wgHQSb YAoyZ06suOBem2H7NRCk fGW0UCUpzKdqTdJclX09 Oyc+ODSntHnll9ByUqzo b5jgl2pklYz0YfPm FPSjyxTugBcmMOE3e6Lu Fj77B29jVOyqFNJxFKFg HHMjFHKtmUmtwn0hnG2b Ii8+CIRdcNF2xIY9 lD2tBsAsAnU7HDsfV063 JtGjmIXnOryvo5oue6sx yVp2MfJhHBFtrrXhzKsk UDU0h2YiVd83W3Rr pNgyk6ZoOta1nv43eNAy p6M5pKL3V8BgRIPiiwcv hAJnvPbyGX6eLLCvgbiv ABWxtA4aKKGvM7i4 PoMsVmG9OMidH0BdcrE2 NYOjjIAlEYKfvFMMlT9h ymhni8pxocokHpAaFKDe DZq2YOu7RGNktLgf OfUsJWK9TiO9GDG3oGBz eB2okUwhtgljlR6fMdv+ YTz8b2mcdBHlSY1dbNA3 BD41PT54sZVir5Q1 hYB2W1PbSTXydypqbhau uYE3SRLnZQStzI00Gg0a uOxuPo6vRCZiKZG8POPw iZMgF4FooO2sIuEw YVOqBCJpE3QhjNBoSNuk H615AVttFuZ8ENIgjiKn M4IsGIKvzJqqZwB1o7N7 Je9PDA49MA18QK67 rIBsl6T2sTI4G8KuLOYh phmoxnvsbAT3VAGmLNFw hU12Ud9jkIaqQb1aFCTb TGM6EWRlbXIlK6Of rM0wXcXrJJNpSECmM2Va dSUlTWayP844EFtpOhR3 FUZnexDiB0ZcBZRcnPko IgQ0a9U3Dd6LXt56 IK35FF46uTYsk4P3ySW8 Z0MzTEXnraatkwywtCH7 KOSzLACznC61Mi8azEzm Up5kVMXzQXF5NMEv pKDlK3OztF9wBqYjCBBi ZKOhY5AdtNPpRPjmW941 VGifLxJ4BZYhvkJtB7Et KIHgyLmtXdM3n8Q1 Hn4RFRdhfii4G7TqOuju dHI+RD93MNGpLN00oZZt oUQjm5vpxMx0VxVlNKHp GGH2eYcaYCqld8Iz ZXI (more content not included)... Normal [facility] C Urineon 05-18-2023 C Urine Urine Culture ordered as a result of parameters set on specific urine dip and urine microsopic results. 15,000 cfu/ml Corynebacterium species (DIPTHEROIDS) Normal skin jonny isolated Normal [facility] Comment on above: Performed By: #### 5 [id number], [id number], [id number] ####[facility] (DEFAULT)[address] [place] [address] ALL CBC WITH AUTO DIFFon BASOPHILS ABSOLUTE AUTO 0.0 [facility] Basophils/100 WBC (Bld) 0.3 % 0.2 - 2.0 % [facility] Eosinophils/100 WBC (Bld) 0.5 % Low 0.9 - 7.0 % [facility] Erythrocyte distribution width (RBC) [Ratio] 12.2 % 11.0 - 15.0 % [facility] Hematocrit (Bld) [Volume fraction] 38.6 % 36.0 - 48.0 % [facility] Hemoglobin (Bld) [Mass/Vol] 12.3 g/dL 12.0 - 16.0 g/dL [facility] IMMATURE GRANULOCYTES ABS AUTO 0.02 [facility] Immature granulocytes/100 WBC (Bld) 0.2 % 0.0 - 0.5 % [facility] Interpretation and review of laboratory results Abnormal [facility] LYMPHOCYTES ABSOLUTE AUTO 3.1 [facility] Lymphocytes/100 WBC (Bld) 32.8 % 20.5 - 60.0 % [facility] MCH (RBC) [Entitic mass] 28.6 pg 26.7 - 34.0 pg [facility] MCHC (RBC) [Mass/Vol] 31.9 g/dL 29.9 - 35.2 g/dL [facility] MCV (RBC) [Entitic vol] 89.8 fL 81.0 - 99.0 fL [facility] MONOCYTES ABSOLUTE AUTO 0.7 [facility] Monocytes/100 WBC (Bld) 7.7 % 1.7 - 12.0 % [facility] NEUTROPHILS ABSOLUTE AUTO 5.4 [facility] Neutrophils/100 WBC (Bld) 58.5 % 43.0 - 75.0 % [facility] Platelet mean volume (Bld) [Entitic vol] 10.7 fL 9.5 - 13.5 fL [facility] TBH EO # 0.1 [facility] PLT 211 [facility] RBC 4.30 [facility] WBC 9.3 [facility] CLINISYNC [facility] .Auto Diff 1on 05-15-2023 Auto Mccone % 8 % Normal 1-12 [facility] Comment on above: Performed By: #### 1 [id number], [id number], [id number], [id number] #### [facility] (DEFAULT) [address] [place] [address] 50326 Baso Abs# 0.1 x10 Normal 0.0-0.2 [facility] Comment on above: Performed By: #### 1 [id number], 43068899, 1092053, [id number] #### [facility] (DEFAULT) [address] [place] [address] 41674 Basophils/100 WBC (Bld) 1.0 % Normal 0.2-2.0 [facility] Comment on above: Performed By: #### 1 [id number], 35971704, 9801794, [id number] #### [facility] (DEFAULT) [address] [place] [address] 13320 Eos Abs# 0.0 x10 Normal 0.0-0.4 [facility] Comment on above: Performed By: #### 1 [id number], 66318604, 0697516, [id number] #### [facility] (DEFAULT) [address] [place] [address] 43995 Eosinophils/100 WBC (Bld) 0.2 % Low 0.9-4.0 [facility] Comment on above: Performed By: #### 1 [id number], 53508063, 8237214, [id number] #### [facility] (DEFAULT) [address] [place] [address] 94812 Lymph Abs# 2.6 x10 Normal 1.3-2.9 [facility] Comment on above: Performed By: #### 1 [id number], 88299559, 1089691, [id number] #### [facility] (DEFAULT) [address] [place] [address] 28562 Lymphocytes/100 WBC (Bld) 25 % Normal 14-48 [facility] Comment on above: Performed By: #### 1 [id number], 85241114, 1652634, [id number] #### [facility] (DEFAULT) [address] [place] [address] Mccone Abs# 0.9 x10 High 0.0-0.8 [facility] Comment on above: Performed By: #### 1 [id number], 11804507, 7445759, [id number] #### [facility] (DEFAULT) [address] [place] [address] Neut Abs# 6.6 x10 Normal 1.5-9.2 [facility] Comment on above: Performed By: #### 1 [id number], 54005406, 1861264, [id number] #### [facility] (DEFAULT) [address] [place] [address] Neutrophils/100 WBC (Bld) 65 % Normal 44-88 [facility] Comment on above: Performed By: #### 1 [id number], 18421711, 0372642, [id number] #### [facility] (DEFAULT) [address] [place] [address] Standardon 05-15-2023 eGFR Non AA >[address] [facility] Comment on above: Performed By: #### 1 [id number], 38075973, 7637016, [id number] #### [facility] (DEFAULT) [address] [place] [address] eGFR AA >[address] [facility] Comment on above: Performed By: #### 1 [id number], 54379642, 3558145, [id number] #### [facility] (DEFAULT) [address] [place] [address] Anion gap [Moles/Vol] 15.2 mmol/L Normal 5.0-19.0 [facility] Comment on above: Performed By: #### 1 [id number], 75259177, 9595983, [id number] #### [facility] (DEFAULT) [address] [place] [address] 38129 Calcium [Mass/Vol] 9.2 mg/dL Normal 8.9-10.3 [facility] Comment on above: Performed By: #### 1 [id number], 45148705, 9770180, 7758865472 #### [facility] (DEFAULT) [address] [place] [address] 88442 Chloride [Moles/Vol] 106 mmol/L Normal 101-111 [facility] Comment on above: Performed By: #### 1 [id number], 20019599, 4103591, [id number] #### [facility] (DEFAULT) [address] [place] [address] 53404 CO2 [Moles/Vol] 17 mmol/L Low 21-32 [facility] Comment on above: Performed By: #### 1 [id number], 32535591, 4948652, 4604752812 #### [facility] (DEFAULT) [address] [place] [address] 96886 Creatinine [Mass/Vol] 0.55 mg/dL Low 0.60-1.30 [facility] Comment on above: Performed By: #### 1 [id number], 83353650, 7970655, 9954380849 #### [facility] (DEFAULT) [address] [place] [address] 95434 Glucose [Mass/Vol] 75.0 mg/dL Normal 74.0-118.0 [facility] Comment on above: Performed By: #### 1 [id number], 66488534, 0031750, [id number] #### [facility] (DEFAULT) [address] [place] [address] 31756 Osmolality 266 mOsm/L Invalid Interpretation Code [facility] Comment on above: Performed By: #### 1 [id number], 56484509, 3363314, [id number] #### [facility] (DEFAULT) [address] [place] [address] 26501 Potassium [Moles/Vol] 4.2 mmol/L Normal 3.6-5.1 [facility] Comment on above: Performed By: #### 1 [id number], 03762955, 8124260, [id number] #### [facility] (DEFAULT) [address] [place] [address] Sodium [Moles/Vol] 134.0 mmol/L Low 136.0-144.0 [facility] Comment on above: Performed By: #### 1 [id number], 37726018, 8806538, [id number] #### [facility] (DEFAULT) [address] [place] [address] Urea nitrogen [Mass/Vol] 9 mg/dL Normal 8-26 [facility] Comment on above: Performed By: #### 1 [id number], 28726497, 1517948, [id number] #### [facility] (DEFAULT) [address] [place] [address] Urea nitrogen/Creatinine [Mass ratio] 16.3 mg/mg High 4.6-16.2 [facility] Comment on above: Performed By: #### 1 [id number], 76802759, 1243844, 0986533975 #### [facility] (DEFAULT) [address] [place] [address] [facility] Comment on above: Performed By: #### 1 [id number], 71158853, 3349121, [id number] #### [facility] (DEFAULT) [address] [place] [address] CBC w/ Auto Diffon 4 Erythrocyte distribution width (RBC) [Ratio] 12.9 % Normal 11.5-15.0 [facility] Comment on above: Performed By: #### 1 [id number], 50568174, 6189236, 0137660925 #### [facility] (DEFAULT) [address] [place] [address] Hematocrit (Bld) [Volume fraction] 39.2 % Normal 33.7-40.4 [facility] Comment on above: Performed By: #### 1 [id number], 35758966, 0703694, 1540295172 #### [facility] (DEFAULT) [address] [place] [address] Hemoglobin (Bld) [Mass/Vol] 13.4 g/dL Normal 11.3-15.9 [facility] Comment on above: Performed By: #### 1 [id number], 93314601, 0573810, 7306183835 #### [facility] (DEFAULT) [address] [place] [address] Man Diff? RBC Morph Only Invalid Interpretation Code [facility] Comment on above: Performed By: #### 1 [id number], 49563457, 9180926, [id number] #### [facility] (DEFAULT) [address] [place] [address] MCH (RBC) [Entitic mass] 29 pg Normal 24-34 [facility] Comment on above: Performed By: #### 1 [id number], 25963014, 7927983, 8523501925 #### [facility] (DEFAULT) [address] [place] [address] MCHC (RBC) [Mass/Vol] 34 g/dL Normal 26-37 [facility] Comment on above: Performed By: #### 1 [id number], 05649636, 0670612, 7931169808 #### [facility] (DEFAULT) [address] [place] [address] MCV (RBC) [Entitic vol] 84 fL Normal 81-100 [facility] Comment on above: Performed By: #### 1 [id number], 34923428, 3141105, [id number] #### [facility] (DEFAULT) [address] [place] [address] 78154 Platelet 228 x10 Normal 138-427 [facility] Comment on above: Performed By: #### 1 [id number], 05365764, 0635691, 4074483447 #### [facility] (DEFAULT) [address] [place] [address] 32459 Platelet mean volume (Bld) [Entitic vol] 8.7 fL Normal 6.3-10.2 [facility] Comment on above: Performed By: #### 1 [id number], 15964018, 6751635, 7963556231 #### [facility] (DEFAULT) [address] [place] [address] 25713 RBC 4.66 x10 Normal 3.70-5.30 [facility] Comment on above: Performed By: #### 1 [id number], 75945781, 6655816, 7919611808 #### [facility] (DEFAULT) [address] [place] [address] 22880 WBC 10.1 x10 Normal 3.5-10.5 [facility] Comment on above: Performed By: #### 1 [id number], 38598429, 5970743, 5896207984 #### [facility] (DEFAULT) [address] [place], [place] [id number] ED Clinical Summaryon [address] [facility] - Emergency Department [address] [place] [address] ED Clinical Summary PERSON INFORMATION Name: LIA DESAI Age: 22 Years Sex: FEMALE : 2000 MRN: Acct#: Visit Reason: Vomiting - ; 10 WEEKS , NAUSEA, VOMITING Arrival: 05/15/2023 13:59:38 Discharge: 05/15/2023 19:41:00 LOS: 000 05:42 Check In: 05/15/2023 13:59:38 Checkout:05/15/2023 19:41:00 Address: [address] [place] [address] PCP: ROBERT MARRERO PROVIDER INFORMATION Provider Role Assigned Unassigned Joelle Nava HEAVY TRUCK TECHNICIAN Nurse 05/15/2023 15:05:55 Mamie Moore MD ED Provider 05/15/2023 15:56:16 Chrissy Diego HEAVY TRUCK TECHNICIAN Nurse 05/15/2023 19:19:53 VITALS INFORMATION Vital Sign [...] With: Address: When: ROBERT MARRERO [address] [place] [id number] Business (1) Within 3 to 5 days With: Address: When: Follow up with specialist Within 3 to 5 days 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 C/O [...] PT. has a steady gait. [facility] ED Patient Summaryon [address] [facility] - Emergency Department [address] [place] [address] [id number] PATIENT DISCHARGE INSTRUCTIONS Patient Information Name: LIA DESAI Age: 22 Years Date of : 2000 Reason For Visit: Vomiting - ; 10 WEEKS , NAUSEA, VOMITING Arrival Time: 05/15/2023 13:59:38 Primary Care Physician: ROBERT MARRERO Attending Physician: Mamie Moore MD Comment: Visit Diagnosis: Diagnoses This Visit Hyperemesis of (O21.0) Vomiting - ([id number]) The Pharmacy at [facility] is open Saturday through Saturday from [...] alcohol and/or drug addiction problems; contact the [facility] 29/10 Crisis Hotline -Text 4HHGL to [phone]. 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 It is important for you to follow up with a doctor, nurse practitioner, or physician?s radiology assistant for ongoing care. If your symptoms [...] so we can reach you if necessary. [facility] Emergency [facility] has provided you with a complete list of medications post discharge. Please inform your core drill operator/provider of your visit and for further instruction on these medications. Any specific questions regarding your chronic medications and dosages should be discussed with your primary care physician(s) and/or pharmacist. Medications That Were Updated - Follow Below Instructions [facility] [id number], [place] [id number], [phone] Updated: ondansetron (ondansetron 4 mg oral tablet, [...] drinking abad (more content not included)... Normal [facility] Morphologyon 05-15-2023 RBC morphology finding Nom (Bld) Normal Normal [facility] Comment on above: Order Comment: Order added by Discern. Result Comment: some platelet clumping observed Performed By: #### 1 [id number], 23696565, 1321086, [id number] #### [facility] (DEFAULT) [address] [place] [address] UA Ewjbn1aq 05-15-2023 UA Amorph. 1+ [facility] Comment on above: Order Comment: Urina lysis Microscopic order added on by Discern Expert Rules system. Performed By: #### 5 [id number], [id number], [id number] ####[facility] (DEFAULT)[address] [place] [address] UA Bacteria 1+ [facility] Comment on above: Order Comment: Urina lysis Microscopic order added on by Discern Expert Rules system. Performed By: #### 5 [id number], [id number], [id number] ####[facility] (DEFAULT)[address] [place] [address] UA Mucous 1+ [facility] Comment on above: Order Comment: Urina lysis Microscopic order added on by Discern Expert Rules system. Performed By: #### 5 [id number], [id number], [id number] ####[facility] (DEFAULT)[address] [place] [address] UA RBC 3-5 [facility] Comment on above: Order Comment: Urina lysis Microscopic order added on by [employer] Expert Rules system. Performed By: #### 5 [id number], [id number], [id number] ####[facility] (DEFAULT)[address] [place] [address] UA Squam Epi Moderate [facility] Comment on above: Order Comment: Urina lysis Microscopic order added on by Discern Expert Rules system. Performed By: #### 5 [id number], [id number], 0113711 ####[facility] (DEFAULT)[address] [place] [address] UA WBC 5-10 [facility] Comment on above: Order Comment: Urina lysis Microscopic order added on by Discern Expert Rules system. Performed By: #### 5 [id number], [id number], [id number] ####[facility] (DEFAULT)[address] [place] [address] UA w Culture if Ind Standard on 05-15-2023 Breakpoint UA [facility] Comment on above: Performed By: #### 5 [id number], [id number], 6746545 ####[facility] (DEFAULT)[address] [place] [address] Color (U) Yellow Normal [facility] Comment on above: Performed By: #### 5 [id number], [id number], 5006556 ####[facility] (DEFAULT)[address] [place] [address] Culture? Indicated Invalid Interpretation Code [facility] Comment on above: Result Comment: Resu lt created by rule GL_MAGR_ADD_UA_CULT Result created by rule GL_MAGR_ADD_UA_CULT Result created by rule GL_MAGR_ADD_UA_CULT1 Result created by rule GL_MAGR_ADD_UA_CULT Performed By: #### 5 [id number], [id number], 7629735 ####[facility] (DEFAULT)[address] [place] [address] Glucose (U) [Mass/Vol] Negative [facility] Comment on above: Performed By: #### 5 [id number], [id number], [id number] ####[facility] (DEFAULT)[address] [place] [address] Ketones Ql (U) >=[address] [facility] Comment on above: Performed By: #### 5 [id number], [id number], 8810304 ####[facility] (DEFAULT)[address] [place] [address] 96018 Micro? Indicated Invalid Interpretation Code [facility] Comment on above: Result Comment: Resu lt created by rule GL_MAGR_ADD_UA_MICRO Performed By: #### 5 [id number], [id number], [id number] ####[facility] (DEFAULT)[address] [place] [address] UA Bilirubin MODERATE Abnormal [facility] Comment on above: Performed By: #### 5 [id number], [id number], 4702079 ####[facility] (DEFAULT)[address] [place] [address] 50095 UA Blood Negative Normal NEGATIVE [facility] Comment on above: Performed By: #### 5 [id number], [id number], 6478938 ####[facility] (DEFAULT)[address] [place] [address] 35293 UA Clarity SL CLOUDY Abnormal CLEAR [facility] Comment on above: Performed By: #### 5 [id number], [id number], 7490588 ####[facility] (DEFAULT)[address] [place] [address] 48221 UA Leuk Est Negative Normal NEGATIVE [facility] Comment on above: Performed By: #### 5 [id number], [id number], [id number] ####[facility] (DEFAULT)[address] [place] [address] 33485 UA Nitrite Negative Normal NEGATIVE [facility] Comment on above: Performed By: #### 5 [id number], [id number], 7821682 ####[facility] (DEFAULT)[address] [place] [address] 20735 UA pH 6.5 Normal 5-8 [facility] Comment on above: Performed By: #### 5 [id number], [id number], 6457637 ####[facility] (DEFAULT)[address] [place] [address] 99115 UA Protein [address] [facility] Comment on above: Performed By: #### 5 [id number], [id number], 6222744 ####[facility] (DEFAULT)[address] [place] [address] 39965 UA Spec Grav >=1.030 Normal 1.001-1.035 [facility] Comment on above: Performed By: #### 5 [id number], [id number], 9407383 ####[facility] (DEFAULT)[address] [place] [address] 94286 UA Urobilinogen 1.0 mg/dL Normal 0.2-1.0 [facility] Comment on above: Performed By: #### 5 [id number], [id number], 3076051 ####[facility] (DEFAULT)[address] [place] [address] 68102 Urine Source Clean Catch Normal [facility] Comment on above: Performed By: #### 5 [id number], [id number], 1924737 ####[facility] (DEFAULT)[address] [place] [address] hCG Quantitativeon hCG Quantitative 201233.0 mIU/mL High 0.0-0.6 [facility] Comment on above: Performed By: #### 1 [id number], 99211256, 7248598, [id number] #### [facility] (DEFAULT) [address] [place] [address] Coding Summaryon 05-02-2023 Coding Summary HTMLBase 64 KknqnaxvRVf9yJe+PGhl YWQ+VF4GQOGnV35lhDJq wF9lY1DXJSjUBonlQLKE MLwGImDtptVkTX3lyHTr ZXJu IC8+FU1nAURyDlktlPWq w3O7hFU1J32xdt4hVFih sEI6XHAlLsFfdqggl5xa yEr2USagFfslJfZs GYQqnT68LCY6rG74Px42 jSUnoNOka4barZu7XeIv HWWzPOF7bLxcYQvxg5Yn EGVdR37wcTTdf0A7 IGNvbGxhcHNlOyBlbXB0 aJ2cCZcyxejjx8txqlgc Uxl6ra30yKCym1K0jAZ9 D3SzucK8WHWxgEHt JvruaTHMaO6lxmxtp4ux gwsuVeHaVWZrTKg0KSv0 UQQnyLkuFuWbAP24RVY2 TJPilsIgE1ZuBEQo dCbqUzH4a7M2Tf2TA2HW HnnlP1LNPBURUOmxkMX+ UA35xw13T4FyOltiNid5 MEGiOUX2gXY1eU3a QMVxPPpwj0T1hFO9H0El yqInce2kp8xwPJWwCVso J89adYYfy6C4TCVfvKS9 XOCvrMlgJbAawH24 Oyc+VRVlqCkxn5PoWamp z9ogl8hizXp2EahwELJa noMiqWsyOYC8d3GcTr8u BENexDS1uPL8jB9y QuSoTsQ7BLvhA768FkOl mKNgUjuyF17uV7FeoIV+ XBGuAbp1OVWpdWidNE2m U7ViLMQpszrepDCi rTtpIU5uHXKhzjgaEROm xJ8eFZCjX9f4GzRuOnP2 IHvsZ6WiQKRznfkkTo33 bF7pLhZlTqZ4MQrl M5DbbvG3MUAhzKRbOHvn REF7G66mo5Y7QIFjFIKx DPL4lSK8tW9vsZriiwow bGVmdDsgdmVydGlj BSoyDDjtK325OSPpoEcz PkNvZGluZyBEYXRlOiAg MDEvMjUvMjAyNDwvdGQ+ UHJrFNF7oNslGTOv cLHsRCbxYf2boOxmgYpk RP8cNDErplxyNJZekL8t LUEjhPXbgPylHI8rTWCe jcbah614LrRqPKX3 GNLqaMAaJ8PanB0lXlRw BJOwWUWcD1WgvPTlTBcx E394YLvxUuL0FVXtpiKc Y5ZnBPDljJvbOdR6 o8V7Vs6Bt1PkcuoiZ5Jz cPUbNfHuYpypIAh7M4Gg PjwvdHI+NI43ILSdKJ04 FAx7FQN1qPkpUYyo GPCaO2WnoR3wSeYbQQYe ZGRkOyc+PHRhYmxlIHdp ZHRoPScxMDAlJyBzdHls NF6vGn8dIXBvBAZd yLtufHEfSoMqx8rqFFHc BEdkWB9cvCnbX4BovNH5 JUBtm2z5Wk51E73mR0Yf dXA+UKIoyLB9vPZ7 nZ9aYsCkLfB4AWjbJ829 EvMddPWuRsqhp6tvv7dc bSt2BxO6XIThdaRgbNkp RMD9y6HiZh28B77t IHdpZHRoPSIxNSUiIHZh xTkbqc9kfQ4kMh9+PGNv jNG1dGP3lR4hJtPnDxQ6 BQhbA152MkTetELh Lsamu0bxl4xaiAb9MsIl EILzjqRxuNsrHPK4f8Ow Xf58U8BmgRymd1NiToe5 fg50dFPlf7L6dHP6 I2GuVYLuyzwbrNEuqZin ED1nCJXyhezsCCPquQ6c PLMvS4g4HeSuCpQ0HQps V6EhwoN9ZOPyzFYe EOXreNWNoL7pyykgz8iu giokCfVlKNNnRKm1IZb3 ONHdsGznJzLyAUV7EzX2 WWA9kMDhsU5leYot vosikH9sYdl+VGZ3hTQr aSYWKH4bIzygbOK+PHRk KRB1oIyxQMboDAFxgW7v VQGnJ2o5XeNtRkW8 WRojI0FfezC9EXGqkGCr PQClaRYQrE8dsabke7pf saqgKvVwZZKoRDv7LFu8 LWFsaWduOiBsZWZ0 KqT4ENA5cZOaeL5qlWku rjpbsE7yVge+QmlydGgg OTV5RNl1D7UbOwd1EUDv kPowVZ4qdWPiMXdl Ef1iqPnsgWboYB2pJTRw mwhuy522MkFmb4ajDMXx fJPpYMlkESR7N73kf2Y8 FWNmOZDtEUF0lRR0 lI0nkXptjrpljYBnwMpw sbKtiVxaXCigRRiwC252 KAPhkWwuZdPeEOf4B0Om Lhn9FRElbQctWE5u wHEdAJcyWm2uiMgzdZbf YQ5iSRZodrxsx508AlYc w9ybISFwqMZpRVrpOPL1 B99ci6F2UONtRJXp QAC5yCS4uT3miLfvychy bGVmdDsgdmVydGljYWwt NTbzX592OFWhvOfoSfAo yKj0K2YlJqj3QTAu kZurGJ0xhRQeRPbpWu4y lQshrRcoIM1yDKSvfhyy y387CsNfg2yjKDHdwNQr JZxeIEC1H93tw1Y7 KPAwSXZfGJX7fCR8cI9w bGlnbjogbGVmdDsgdmVy cFmbSRqeDDddR443URNi cDsnPlBhdGllbnQg HAppCQp0Z4WlVyrnlPS+ KA38BUAiDK70fMBtvURu t5qkfNe4CgYhGIBhXBZ4 oSonLHpsx6KgLFMt R75sgREut9I9HSIehMiw sNJyZrXnyDW5fJ1pRTjj lsmjx9bsmeltAzfty9em wp56fL29Z13vJPhz ZHRoPSIzMCUiIHZhbGln qb9lmM8oDx9+PGNvbCB3 cGG7kQ2oIFYrSfI7XVzh W222MfOxjPRsJtdw j7fxk0urwOq2XyE4PGRm zsAzbPgxDDX8m2RdCp69 K34yUWwtYGNaJZNsEVAs AKJffYaqrm2alD3z Ii8+IOMwsMS8gKC4cU6f RfRjRfB6RWbhH310AbRc tFSfActdJ75wC1MjyUM+ FWJzWwz1CCQagQpr AN6peRAdCVyaXj1sLTM2 JkSjQgIiSKvcE6WjTDYh murhlqekrOG7FGWqHSWr gG00Jt8abCjzGWPc nEAOmZ9msdfgw3cwwvke EtZuTFTyWYv8WUb1YOVb dXaaMhTcLRN7AwB6IUJ3 iSOdkV2zfSlwrnbi xV0rF1XbTZHjozdsNn98 bV6jQhBiCqR4YLfcYvj+ Z3xSMqPFHKavK8pJBWPP OHxCUA4OUYrdjNJ+ CTQbPPP0tWvtUXxgMNUl sN7zYWRcR5n1VgMgXyM5 YSckD2IhLDBluxnxXw74 xM8pQbXoVqV1FBxo Z4GvzvJ2TGDlxKYvJEub MXK8N86pq6N4AFReKTRo NHF8xDI2qX5juTslkbmm bGVmdDsgdmVydGlj HRjxWGvsM582NYRsjExw CfN9MnQjBeNwXSL2Y7Ce Zox7GEQyjBqxJI7wgOHx POpjVb0yuHrluHws JQ3xNODizbmoRRDezS9a RUXaeUCgiIdiAV4pJJFb renyo019ZiVvCSL5QHWz mWTjE4BczM4hTyXh WWHdNKYeS2OkiSLvPAvs G531OAkzUvR6KQFvjbFj J4CrVGZrgBrjFhG0g2C9 Nu6iRLNCNXEhocyz dGQ+SBWvDXO4eLkyZSjc NMXyvS9pIBRgB6e4EcPs WoH7HKjgE8UtFWMkjjdy Os95rV7aLzVwBsT8 BXkmZ4ZsaiY7LJYrwQDr PRauVFC5E71oj4F0IFWp TJBzHTK2iJX2wP8lfPmu bjogbGVmdDsgdmVy gTjzWQhcIHwsY564LSAn cDsnPkZFTUFMRTwvdGQ+ IZMwSDU6wPznEVaeLOZz sJ4wLLAxO8y7WkFv UvE0DJfaG4NxSFHencpj Qu11lX7aErSgIfZ5MDao M4UmkzI5JHNsfIXmCTwj TWD7F95vl7D5PBRj DHJaWPQ3wQY4aU2kdZtp bjogbGVmdDsgdmVydGlj GUkuDUhoK805QJRznWei XeXwWFGdOC6kpSft dGQ+TA05po12G1UmSzgl Pbu9OBFfMDE9pPZ1vC1b QWGvRLkbg9E5oNU0A8Bw qwTapb6ll5pzXVUc SHkiX49xiORlw6E3SEWy hHE1MSKteOalUxFzpB07 Oyc+KNWfgAnfk6WrUqwj a1oyn4wisNl3HsMe HHZlpeOprDrbBHX4m7Vx Gu83O39lGIdnCMFfRONw MAUeDQCffLkuow6hrJ5d Ii8+ZHUyzXY5nPG4 aE2dZlQmFvF2IXwoU290 QcSouLOjLxvnp0fbx7ls xQd6WePeODWgbhHwkIue UOF8w8VgFr72F9Cr uYwpt6CaHlu1xd81iWMs q8W4lEL0R5BnKYTjglha fETlqLxqCT3aLSKyrogv GCNuuS8qLPXuZ6z6 HgXcAyX8HJrqG1LplhD6 APRzrHTnLLLfoINUnA3m hnabb9bqrnbgEsQbEJXm WPy2TYd9HDVniEjk YhEsRSI3FkM8UGR0aETd dQ2gbMayfzrggP8vQgt+ ZNx2o8cueNQwCJ6muMH6 FY04UY89bZJsw8F1 rJE6W0ZrLZSsfweagend qQB3MDEuZHIbkW73Ez4a iKjnUd1tRZXtYHK3TAYk oNIuY2FpdY2bKiKw LTKyCZVcN7RjiTUhHMrd L450LDcyFfZ2OENqrtYz D3UlAWUcgIijTiR8x3H7 Pg5MXG39IB93CB26 vYYyv8E8nTU9M2XoEOWs ftafboladEU1JXAiRTZt uC92Ur8swOnwEn8dTBAx ORK1CXYsmYEvL1Ex aE8kJeFdPNAcGIJtO6Oe xMVySTgaF054UEcrEaD0 TGHrcpWfS4IvQMMtuPrs XnH7a1S9Qd4TEx22 DK93LT25cNNjx5W4aRJ9 J9SfUGSoccekykbndMT7 ZMPwFJMzfN84Ji3yvQhw Cs1bDUBzWZN0ZZMm dJBxK1EilF7gDgJqKDNr VWZpK4GuaRGoTBaqD633 ZUhuCnA8KDCzbvLkI3Oq DCVynJsfCnT3h7I9 Ar9IUArcsbi2O8QlMfnq dHI+CH73HPTbPX52hINd hVXyo7ciiSh2LyEgDZRd CCQ8bRypDPfuj9Xh ZXI (more content not included)... [facility] Coding Summaryon 05-01-2023 Coding Summary HTMLBase 64 JljzlcumQVg3fUf+PGhl YWQ+PB3GUTJuO76suJWp mK7xT7HDOMeMQwcgBSCO VFhEOeXydpPoKZ6gfAUv ZXJu IC8+VR6oACMbRedrlXNb i2V5pBN7K30vqu0aKSdl qRP6FKOuMqHjhxowr5gn lBp2AGamPniuQlIb WGHncB58BAR4mY01Ej58 jJHxvKYuo3jvaXi9OoTb AZQfWSP5wRexYYaaq4Bp ZGMpV37mcGIlu2J7 IGNvbGxhcHNlOyBlbXB0 vW8gJNyuxijpf1pauvpg Elr5zo22iBUjo5Y0qTZ6 A4YsbnI9FQTqmKIg MwtovNOYmA0qzbqrd9wx izigLrEkHQAnZRr5NCg7 BVFnvZqlTzIvSP51LGH5 XQSosoOoX7IeNXDh vRiuExQ1z7T8Op6RJ5II UfrfN7YKSYBWGBrlzZZ+ LT71js54N2TpUyjjOev1 SHWxHCX6dIR6cV7l RNYtNTzow0V6dEE1X2Cg uzWdxq0hz4sxQYRfBObu P58ocBOnv7M6UUOzeTE5 ZFGvvZohOjGoaI69 Oyc+GEKyyOlkt5MfZtjl j7qbf3hvwHc7EjbxNZQj reWzmShqQUV0m8RvWd8e GEQyjMR7wVG9jH6r SqQtDtW7WRzwJ284LhAq jWBdExurW49bD9PusRH+ LNVzYfg1PUBbzGjzPG6s M1NlEJPylmfelKIr hUwlCW3lNMFqrfkjBDId wG4nEJIvB0a1YsVaCnW8 CKktL7PvUUQiqvlnZn85 oD8uFlSoLtD5AQkd M8DjlbY1NRJjfLGiNNgh GSI1O65kd6F4IIYvSJJm DKS4kBV1sH9xrYnddbun bGVmdDsgdmVydGlj EJjvOWctK523HMYgmZsu PkNvZGluZyBEYXRlOiAg MDEvMjQvMjAyNDwvdGQ+ MAAlRWI7iHuyRDQi aGMdLXohUn7viCdnvSbh JL9nJUKhgnwpPMTwuC7q LSWkiMXtmCarUL6dYYVh qbvar280RgPwCKH8 VYCzhVVgX7VzcE6tMqEa ZCQkPHYnC5TojRFrFPgy C979UWizVhX3ANPxtoDr T1EnCEWipHxnAzN2 p0A0Iz7Pn5BuzfyvV5Ds jSDjPtRmUuobKMf2K3Ei PjwvdHI+MX21RZHySA92 XDd6GNZ9aBajVNyh LOVaI7CjvT3wQeNoNYEs ZGRkOyc+PHRhYmxlIHdp ZHRoPScxMDAlJyBzdHls QC5qHl4tQDKzCFIl vRnbjDZgSwOpy1tsDQLr DVarBX1ldEffP5CcnFA9 WHWdr0q4Hn94H05pU8Vb dXA+KYWzpMU9kYH2 tU6uXtNpNjG4NXldV293 BtFblHIoRnmyf5frl2ik pEp7UaZ4NNUjzkSwaSpb JOT9o4QkNs47V35q IHdpZHRoPSIxNSUiIHZh rUoffc9rgZ5nVt4+PGNv nBK5vRT2lI1dHjApLsE5 UPqcH119ZdZoeNJk Sgady0gsr6nisUi2DeTe WJAmkoBzqGjrHHT6q4Nn Oq43K0EzeWeco3OnWic6 mh93oCCjt9M6vNV8 U6UyFPQgdrfecRMqsJja NX8iPKHypmujKWFchR6z VIFcF9v4FfEbAsF9VUbc B7MdnnD1ZJVzcIMg MPMrsVWWgB4czhktt2hw sfpkGrMdNEViFRf7VSw4 GSDfjNctIdXuRGO0LeW3 AOA0iNAhvG2pcBrt cbimoF6pJks+FEA7iIUr uKCOHA4wEvlpzHO+PHRk SMW0yMzsZHcfMPOuhK3d TSXwY8u0OiRlHeR3 RDupH9GhrhU2LQOsnNRi CXWrmGNBoD8jdimei2cm aurpTnNmMNFoGWy8RVr3 LWFsaWduOiBsZWZ0 EdG9YER3lURwzX8oqLue qolizU2jJnz+QmlydGgg IAR1HUo8X2MbNeh7LFSu rMvqTG6zjYJpTPau Eu8gtGlaxAdpAS3nICBb hwkjb422LzYbf7lzELBk rUMbXFuwLMM9A68ne8V2 NUVaAQNdNMI7cMQ8 vM0arPzrzntxqPKrnFrl ynUnjRmzHWtjKZwvV552 MYKwfRqzEhVsLOd6J3Bs Qpy2UFRgxYefWD0s tGBuTRcjVw7ooAusaXwv SR8cOSFnclakz313HbTr d6gtUGWocYIuPSouMBH2 A35lu5K6OCUaCJHi GDO2sDB6aT9xkBkmqfmd bGVmdDsgdmVydGljYWwt COkgH352KYShiKrqLnQv nPr7Q9AnCtu7ONOx yWolXX8qvNBgIQesBj7q qSixoHvhAB2eSHJenwzp f313KfWyd3npCDMsbEKz CMliPGC0O87ak9P9 ZNZlYYWlYGC3pKR5gJ2q bGlnbjogbGVmdDsgdmVy uIhrLVepSRrpW091RXAn cDsnPlBhdGllbnQg YOmpYPk3T6MmHfpikYS+ XH86JMYrPX29aKQceDSk l0entRj3DrWdVSSzFIJ3 eDspCDrkq2GfEXIh B72icKXvf6Y3ZGRynIym eMDzPqBwqSQ9vO4nIZah smpdp6dprqlpGkfcl3kb hr31pX11Z45hMTmp ZHRoPSIzMCUiIHZhbGln nf3yuW3wEe7+PGNvbCB3 pQY0aC9dFZWzFbQ8PLrb R929ZpNvrPPvJjtk t1nfv0jtvYt0EiK7PDUe hgKezJltDGO3v1PhCs75 L46kFTmsAZJdWXIsWWJv QNTzpFdpmp1azB6a Ii8+RVYmfQM3jBE5fY1t CtOiBzI5LWwfE889TgQj kTIxEpxjK04pZ3GvjNC+ BHHcIkx9DRCwcTcr AY5lwVDuBCilDi4mGDL2 SvHyQlMkVFtiZ5IhJAZu qqsotqtpfRP6CTNfMQDu gG96Rw5apVlyJHSy uQCFxV5yvcxmm8ieinfu EhKoLHFeHNf8DEj3DEIm jIuzDqWkWYN1AsW6GZE4 sOMtpI2jeCirzpto gH8cL8QtGWEyldlmKw98 sX3pRjNwCnM6YMwdOpb+ D4fFBuOHWMxkE1vREDOR NChUMK3CDKzgsOR+ TJSbXRI4kJqiTEnlPCNj vW8wNQXaB0y6LoDtQdA1 ZVpfW1LbKTZnkokhFv67 jS2oFxMyCfN5XAxb G2VcryH2UQEbsPUnUOwp CEM5X74ys1G5CNBuIWSi DZI4uHA7iK2wgFhlsniz bGVmdDsgdmVydGlj OCexBKmyP661CYBssYvt FkP4XlBmQsUbZEG5X5Rw Nqm6HIWksBahEJ8sdGGr RNkeZt3geVutkPhd AT1gFPDlsxmaTWKosR2f XILaiCVmuZyoCZ8nJZXo gfbtb127XtYpKNB9YUPs rFLcH4ZubG1uWrYe RLJtEOTeL3OgdMOkXRac C902ZCdoEeD3LDQpxyJr E7MjHCYtfPmyPbV7g8P3 Xz7aHVEDJNUmubqo dGQ+LLPoGQV1sOumQTlj KOOvjW1oMGCaT6t9YdAr AeX8AFtxG9CqMPVgabfa Ru01bB1sEgNxGeL7 SQqfN9NicpM4JFWasUNa AQtdNOB7U74oe9O5AELa PXVjKWX9nNE9mI1ykJkh bjogbGVmdDsgdmVy dTtoQCjrSKktV175YKMl cDsnPkZFTUFMRTwvdGQ+ MBSeQYT4uJudTGirFZUz kP7gMERuZ5x3OyKd MbM9MRfrK2GjCGYfxkvy Fr13jO0vCcPeYwL1YGzf U5VugqE3ZUStuLYqNPfo WBJ7Y06vd2U4JKRc QDExUST3kGY3vA1noRln bjogbGVmdDsgdmVydGlj PVxvEChyG680CMXlzDzo Gc9QUR01ZS83Y7Du PjwvdGFibGU+PHRhYmxl IHdpZHRoPScxMDAlJyBz cZtoKA6tEq8sAIKwINQo vFrceMLwNvQih3mt LQXuVJulFR7wjRppX4Hj nRI4GYSrh8o2Gk43G68s Z9EntKA+RZJwlWU0nAM4 cP4gIgQfBnO6KHbj Z413NcBsaXSwVprdb2fm d2flaZl8AqTiXVRyojWd bCkiXLF2j1WqUq76E03h IHdpZHRoPSIyMCUi HOLrvAvpmt3tbU7nFv9+ UEEsoEN6dQT8gN6oWbKc EgM9SIqrB289XvFikDUm MtdvW06pL6ZjjGO+ TQRiOqi3XEOwnZbaDP8y hXDdPZhyOh9eCGW7FuFd QiMqPIgeM9WjMFAbtimn tqqjcNN4UCTkKJRx pT53Fb4iqDyyKf0xBQYh TDR1EEVziSTiV1OppT4m OmVmWFOlAZZdZ0IiuEPh PMtdB820TTepGrR7 XQWcodOnC5IcDWPouOau AkF4n9R5Is7XcTgjkOOu ZA5kYxYzIGv5M2YqTzg3 SQSjaBgrTV5lzKBr UGtyZw3yjHvenXwnHP7x LYRwejeih039XqSrg2su TAIjuZByBTibZCX1T35w h8S1LRCcQIZzUFI4 wJR3xV4vfUubvxdfkETw dDsgdmVydGljYWwtYWxp P558MTBqnUraXaMENst0 U4GzPjk8YSZznYju PR6ivAHnXGvdHj5njCjn pBxaAA6lAHKwbpyek452 YeJoy5wrTPJpyEHdQAlz QTO7R01zx9U1KYQl OHJtSEY7iBA2qF8gkYtt bjogbGVmdDsgdmVydGlj WPypARyiT090SMYgfUdp Bp1UXva8Y8AgZoa6 QQVtoWluKZ8enFVrHRih Lm4ckMpefOrwGZ8lORUu ywlap806DdGmq7wfVTCx iYUrMZheYLU5P86q e5Y4ZZTlEWUoBVK3hJB2 eK2rcQdizwfyrGHljGgx ljXlxNfkSOdnLNoqV871 IHRvcDsnPlBheWVy OjwvdGQ+VG86rx59V5Aj TaluTks6YXMaKHG7hNS3 sM2xRSAdSUybo6M5sXT2 N5FrxpNjye9fk5vd YXB (more content not included)... Normal [facility] .Auto Diff 04-15-2023 Auto Mccone % 8 % Normal 04-19 [facility] Comment on above: Performed By: #### 1 [id number], 32195714, 7003749, [id number] #### [facility] (DEFAULT) [address] [place] [address] 88575 Baso Abs# 0.1 x10 Normal 0.0-0.2 [facility] Comment on above: Performed By: #### 1 [id number], 37087001, 2833081, [id number] #### [facility] (DEFAULT) [address] [place] [address] 04256 Basophils/100 WBC (Bld) 1.0 % Normal 0.2-2.0 [facility] Comment on above: Performed By: #### 1 [id number], 72911941, 6011400, [id number] #### [facility] (DEFAULT) [address] [place] [address] 76295 Eos Abs# 0.1 x10 Normal 0.0-0.4 [facility] Comment on above: Performed By: #### 1 [id number], 65164639, 1418535, [id number] #### [facility] (DEFAULT) [address] [place] [address] 85205 Eosinophils/100 WBC (Bld) 0.5 % Low 0.9-4.0 [facility] Comment on above: Performed By: #### 1 [id number], 70274606, 0216659, [id number] #### [facility] (DEFAULT) [address] [place] [address] 41806 Lymph Abs# 2.9 x10 Normal 1.3-2.9 [facility] Comment on above: Performed By: #### 1 [id number], 27524334, 3567372, [id number] #### [facility] (DEFAULT) [address] [place] [address] 66785 Lymphocytes/100 WBC (Bld) 30 % Normal 14-48 [facility] Comment on above: Performed By: #### 1 [id number], 64537470, 8472401, [id number] #### [facility] (DEFAULT) [address] [place] [address] 16875 Mccone Abs# 0.8 x10 Normal 0.0-0.8 [facility] Comment on above: Performed By: #### 1 [id number], 54547631, 6915010, 6595603553 #### [facility] (DEFAULT) [address] [place] [address] 15504 Neut Abs# 6.0 x10 Normal 1.5-9.2 [facility] Comment on above: Performed By: #### 1 [id number], 02853164, 1951338, [id number] #### [facility] (DEFAULT) [address] [place] [address] 08898 Neutrophils/100 WBC (Bld) 61 % Normal 44-88 [facility] Comment on above: Performed By: #### 1 [id number], 00725007, 6814647, [id number] #### [facility] (DEFAULT) [address] [place] [address] 85617 CBC w/ Auto Diffon 4 Erythrocyte distribution width (RBC) [Ratio] 13.4 % Normal 11.5-15.0 [facility] Comment on above: Performed By: #### 7 750426, 93073859, 0467206242, 7479892335, 8978122854 ####[facility] (DEFAULT)[address] [place] [address] 35067 Hematocrit (Bld) [Volume fraction] 40.7 % High 33.7-40.4 [facility] Comment on above: Performed By: #### 7 659222, 52941554, 3909446541, 5740992754, [id number] ####[facility] (DEFAULT)[address] [place] [address] 96099 Hemoglobin (Bld) [Mass/Vol] 13.7 g/dL Normal 11.3-15.9 [facility] Comment on above: Performed By: #### 7 199099, 71576745, 3919758625, 0209152302, 4999190331 ####[facility] (DEFAULT)[address] [place] [address] 59189 Man Diff? Auto Invalid Interpretation Code [facility] Comment on above: Performed By: #### 7 499788, 52733860, 0513336970, 3101776298, [id number] ####[facility] (DEFAULT)[address] [place] [address] 90370 MCH (RBC) [Entitic mass] 29 pg Normal 24-34 [facility] Comment on above: Performed By: #### 7 916758, 59962703, 6795428572, 2119404196, 2810536488 ####[facility] (DEFAULT)[address] [place] [address] MCHC (RBC) [Mass/Vol] 34 g/dL Normal 26-37 [facility] Comment on above: Performed By: #### 7 490369, 33969105, 1593618739, 1535516687, 6387647630 ####[facility] (DEFAULT)[address] [place] [address] MCV (RBC) [Entitic vol] 86 fL Normal 81-100 [facility] Comment on above: Performed By: #### 7 528498, 62884933, 1284694565, 3059570416, 3069644954 ####[facility] (DEFAULT)[address] [place] [address] Platelet 430 x10 High 138-427 [facility] Comment on above: Performed By: #### 7 249938, 40887917, 5965652346, 6774148369, 1628195915 ####[facility] (DEFAULT)[address] [place] [address] Platelet mean volume (Bld) [Entitic vol] 8.5 fL Normal 6.3-10.2 [facility] Comment on above: Performed By: #### 7 645654, 10221164, 3963236476, 1488881027, 7217705147 ####[facility] (DEFAULT)[address] [place] [address] 43196 RBC 4.75 x10 Normal 3.70-5.30 [facility] Comment on above: Performed By: #### 7 960386, 17238620, 3006223917, 2901708978, 3268295510 ####[facility] (DEFAULT)[address] [place] [address] WBC 9.9 x10 Normal 3.5-10.5 [facility] Comment on above: Performed By: #### 7 897389, 92750139, 3318983952, 9431235519, 5818511194 ####[facility] (DEFAULT)[address] [place] [address] CMP Standardon 04-15-2023 eGFR Non AA >[address] [facility] Comment on above: Performed By: #### 1 [id number], 53788678, 9601505, 0284989106 #### [facility] (DEFAULT) [address] [place] [address] 00956 eGFR AA >[address] [facility] Comment on above: Performed By: #### 1 [id number], 13888553, 0790660, [id number] #### [facility] (DEFAULT) [address] [place] [address] 57494 Albumin [Mass/Vol] 4.5 g/dL Normal 3.5-5.0 [facility] Comment on above: Performed By: #### 1 [id number], 46845588, 9409463, 0384040778 #### [facility] (DEFAULT) [address] [place] [address] Albumin/Globulin [Mass ratio] 1.2 {ratio} Low 1.4-2.6 [facility] Comment on above: Performed By: #### 1 347150401, 67007356, 9894156, 5822447939 #### [facility] (DEFAULT) [address] [place] [address] 09889 Alk Phos 68 IU/L Normal 32-91 [facility] Comment on above: Performed By: #### 1 329923889, 10669654, 3348729, 7656009806 #### [facility] (DEFAULT) [address] [place] [address] 76602 ALT [Catalytic activity/Vol] 34.0 U/L Normal 14.0-54.0 [facility] Comment on above: Performed By: #### 1 190814733, 97464932, 6002832, 1783020943 #### [facility] (DEFAULT) [address] [place] [address] 12151 AST [Catalytic activity/Vol] 27 U/L Normal 15-41 [facility] Comment on above: Performed By: #### 1 [id number], 22242411, 2362357, 5183326972 #### [facility] (DEFAULT) [address] [place] [address] 61067 Bili Total 0.7 mg/dL Normal 0.3-1.2 [facility] Comment on above: Performed By: #### 1 [id number], 40096797, 2022569, 8896462653 #### [facility] (DEFAULT) [address] [place] [address] 29184 Creatinine [Mass/Vol] 0.77 mg/dL Normal 0.60-1.30 [facility] Comment on above: Performed By: #### 1 582749094, 83221364, 0745657, 8631911064 #### [facility] (DEFAULT) [address] [place] [address] 55136 Globulin (S) [Mass/Vol] 3.6 g/dL Normal 1.5-4.3 [facility] Comment on above: Performed By: #### 1 129559809, 75046952, 5062196, 0147604440 #### [facility] (DEFAULT) [address] [place] [address] 97725 Osmolality 269 mOsm/L Invalid Interpretation Code [facility] Comment on above: Performed By: #### 1 [id number], 45684598, 1528163, [id number] #### [facility] (DEFAULT) [address] [place] [address] 91034 Protein [Mass/Vol] 8.1 g/dL Normal 6.5-8.1 [facility] Comment on above: Performed By: #### 1 [id number], 49999071, 3019390, 4846668167 #### [facility] (DEFAULT) [address] [place] [address] 40220 Urea nitrogen [Mass/Vol] 10 mg/dL Normal 8-26 [facility] Comment on above: Performed By: #### 1 [id number], 70110819, 9920411, 7065590443 #### [facility] (DEFAULT) [address] [place] [address] 34955 Urea nitrogen/Creatinine [Mass ratio] 12.9 mg/mg Normal 4.6-16.2 [facility] Comment on above: Performed By: #### 1 686989140, 73674241, 1641448, 1144220832 #### [facility] (DEFAULT) [address] [place] [address] 51770 Calcium [Mass/Vol] 9.0 mg/dL Normal 8.9-10.3 [facility] Comment on above: Performed By: #### 1 [id number], 30279038, 1614567, 6050577247 #### [facility] (DEFAULT) [address] [place] [address] 72075 Chloride [Moles/Vol] 104 mmol/L Normal 101-111 [facility] Comment on above: Performed By: #### 1 466227726, 60546963, 4743928, 8307675557 #### [facility] (DEFAULT) [address] [place] [address] 18515 CO2 [Moles/Vol] 23 mmol/L Normal 21-32 [facility] Comment on above: Performed By: #### 1 443549105, 05914366, 4628055, [id number] #### [facility] (DEFAULT) [address] [place] [address] 28877 Glucose [Mass/Vol] 94.0 mg/dL Normal 74.0-118.0 [facility] Comment on above: Performed By: #### 1 405680022, 32187444, 6447988, 5236523714 #### [facility] (DEFAULT) [address] [place] [address] 59732 Potassium [Moles/Vol] 3.9 mmol/L Normal 3.6-5.1 [facility] Comment on above: Performed By: #### 1 081678380, 97745274, 2759658, 7894491927 #### [facility] (DEFAULT) [address] [place] [address] 18399 Sodium [Moles/Vol] 135.0 mmol/L Low 136.0-144.0 [facility] Comment on above: Performed By: #### 1 [id number], 62688268, 8586330, 8478159921 #### [facility] (DEFAULT) [address] [place] [address] 05155 Anion gap [Moles/Vol] 11.9 mmol/L Normal 5.0-19.0 [facility] Comment on above: Performed By: #### 1 [id number], 77440785, 1284552, 4314920247 #### [facility] (DEFAULT) [address] [place] [address] ED Clinical Summaryon [address] [facility] - Emergency Department [address] [place] [address] ED Clinical Summary PERSON INFORMATION Name: LIA DESAI Age: 22 Years Sex: FEMALE : 2000 MRN: Acct#: Visit Reason: Vomiting - ; NAUSEA, VOMITING, 6 WEEKS Arrival: 04/15/2023 14:48:29 Discharge: 04/15/2023 16:38:00 LOS: 000 01:50 Check In: 04/15/2023 14:48:29 Checkout:04/15/2023 16:38:00 Address: [address] [place] [address] PCP: ROBERT MARRERO PROVIDER INFORMATION Provider Role [...] EDUCATION INFORMATION Instructions: Nausea and Vomiting, Adult, Nsmj-qv-Harr Follow-Up: With: Address: When: ROBERT MARRERO [address] [place] [address] Within 3 to 5 days DIAGNOSIS: 1:Nausea/vomiting in Patient Understands: Yes - Patient/family/careg iver verbalizes understanding of instructions given Comment: Normal [facility] ED Patient Summaryon [address] [facility] - Emergency Department [address] [place] [address] PATIENT DISCHARGE INSTRUCTIONS Patient Information Name: ILA DESAI Age: 22 Years Date of : 2000 Reason For Visit: Vomiting - ; NAUSEA, VOMITING, 6 WEEKS Arrival Time: 04/15/2023 14:48:29 Primary Care Physician: ROBERT MARRERO Attending Physician: Yassine Maldonado MD Comment: Visit Diagnosis: Diagnoses This Visit Nausea/vomiting in (O21.9) Vomiting - ([id number]) The Pharmacy at [facility] is open Saturday through Saturday from [...] alcohol and/or drug addiction problems; contact the [facility] 29/10 Crisis Hotline -Text [id number] [phone]. If you received any narcotics, sedation, or [...] With: Address: When: ROBERT MARRERO [address] [place] [address] Within 3 to 5 days Medication Information: The exam and treatment you received today in the [facility] Emergency Department were for an urgent problem and are not intended as complete care. It is important for you to follow up with a doctor, nurse practitioner, or physician?s radiology assistant for ongoing care. If your symptoms [...] so we can reach you if necessary. [facility] Emergency Department has provided you with a complete list of medications post discharge. Please inform your core drill operator/provider of your visit and for further instruction [...] other disea (more content not included)... Normal [facility] Extra Greenon 04-15-2023 Tube Collected Yes Invalid Interpretation Code [facility] Comment on above: Performed By: #### [id number], [id number] ####[facility] (DEFAULT)[address] [place] [address] ED Clinical Summaryon [address] [facility] ? Urgent Care [address] [place], [place] [id number] Clinical Summary PERSON INFORMATION Name: LIA DESAI Age: 22 Years Sex: FEMALE : 2000 MRN: Acct#: Visit Reason: UC - Nausea; NAUSEA Arrival: 04/12/2023 09:25:14 Discharge: 04/12/2023 09:56:00 LOS: 000 00:31 Check In: 04/12/2023 09:25:14 Checkout: 04/12/2023 09:56:00 Address: [address] [place], [place] [id number] PCP: ROBERT MARRERO PROVIDER INFORMATION Provider Role [...] With: Address: When: ROBERT MARRERO [address] [place] [address] Within 3 to 5 days Comments: Diagnosis is history of nausea vomiting, during . We provided you with medication help with nausea. Keep hydrated. Eat light, over the next 24-48 hours, soups, Jell-O, avoid heavy meals. Follow-up with your own primary care provider, or your WATER SERVICE SUPERVISOR physician in the next 3-5 days, for reevaluation. Return to the emergency room for worsening symptoms or concerns, worsening abdominal pain, worsening nausea or vomiting, spiking fevers, acute shortness of breath or chest pain, or any questions DIAGNOSIS: 1:Nausea and vomiting during Patient Understands: Yes - Patient/family/careg iver verbalizes understanding of instructions given Comment: Normal [facility] ED Patient Summaryon [address] [facility] ? Urgent Care [address] [place] [address] PATIENT DISCHARGE INSTRUCTIONS Patient Information Name: LIA DESAI Age: 22 Years Date of : 2000 Reason For Visit: UC - Nausea; NAUSEA Arrival Time: 04/12/2023 09:25:14 Primary Care Physician: ROBERT MARRERO Attending Physician: Oneil Slaomon Comment: Patient Education With: Address: When: ROBERT MARRERO [address] [place] [address] Within 3 to 5 days Comments: Diagnosis is history of nausea vomiting, during . We provided you with medication help with nausea. Keep hydrated. Eat light, over the next 24-48 hours, soups, Jell-O, avoid heavy meals. Follow-up with your own primary care provider, or your WATER SERVICE SUPERVISOR physician in the next 3-5 days, for [...] these instructions at home: Medicines ? Take oaxd-uqv-wfpanna and prescription medicines only as told by your health care provider. Do not use any prescription, lbkz-qip-ohvjwjh, or herbal medicines for morning sickness without [...] to yo (more content not included)... Normal [facility] [address] [facility] ? Urgent Care [address] [place] [address] PATIENT DISCHARGE INSTRUCTIONS Patient Information Name: LIA DESAI Age: 22 Years Date of : 2000 Reason For Visit: UC - Nausea; NAUSEA Arrival Time: 04/12/2023 09:25:14 Primary Care Physician: ROBERT MARRERO Attending Physician: Oneil Salomon Comment: Visit Diagnosis: Diagnoses This Visit Nausea and vomiting during (O21.9) UC - Nausea ([id number]) If you received any narcotics, sedation, or [...] With: Address: When: ROBERT MARRERO [address] [place] [address] Within 3 to 5 days Comments: Diagnosis is history of nausea vomiting, during . We provided you with medication help with nausea. Keep hydrated. Eat light, over the next 24-48 hours, soups, Jell-O, avoid heavy meals. Follow-up with your own primary care provider, or your WATER SERVICE SUPERVISOR physician in the next 3-5 days, for reevaluation. Return to the emergency room for worsening symptoms or concerns, worsening abdominal pain, worsening nausea or vomiting, spiking fevers, acute shortness of breath or chest pain, or any questions Medication Information: The exam and treatment you received today in the [facility] were for an urgent problem and are not intended as complete care. It is important for you to follow up with a doctor, nurse practitioner, or physician?s radiology assistant for ongoing care. If your symptoms [...] so we can reach you if necessary. [facility] has provided you with a complete list of medications post discharge. Please inform your core drill operator/provider of your visit and for further instruction on these medications. Any specific questions regarding your chronic medications and dosages should be discussed with your primary care physician(s) and/or pharmacist. New Medications [facility], [address], [place] [id number], [phone] ondansetron (ondansetron 4 mg oral tablet, disintegrating) [...] kn (more content not included)... [facility] Coding Summaryon 03-06-2023 Coding Summary HTMLBase 64 UeewwyisGXb7pBh+PGhl YWQ+LT1RHORwO86jzMHm sM0uO0WEBWaNHgkpQKMU HPlHOcXqyxYkHI9bqOGy ZXJu IC8+MK1vHRMrCxvmaGCe n1S2vSO6R03itn1aEDaw vKV7HQXeTdDpeaydf9uu tGp1YRjaVumrGfXy JZIczT48CGM8cB89Zt72 rKVtzQYpu3vdxYi4IhCo FWVxKWE1bCejSOfjj6Sf FFSyM63btJIfn6Y6 IGNvbGxhcHNlOyBlbXB0 kH9hUGidaemrf1pohkge Pnj0lg38nKUuj2I0mPP5 Y0NcevT9YETfcPYx SgcclRJYyS0skpsqh2tc irgfNzYcDXAxENp6MEs1 GCKinFdqFvJoUP84JFA7 ERMqntHiM9LsLXSl bHxqKsU8g4N9Ks8EQ5LK MnajB8PJSFDONUxqsIW+ FQ47sp27X1HrDkuaZnu4 KPEcPGW0mQX4oB6b UDUzHKuck7D2dPD8S7Bz wrCade9lw4tnGDJfRYkn X49hsMGzo7U5UNQtxDF3 XFZjyJtbNtClaQ43 Oyc+EPAspYsvu1NbPuhf v5yme2pgtSy1RtzhFTDn jwGycHgoYSS4g4SeYw2u LWMygSB9xHO7bE4c TyOuNgF6YOwpW249EcHd jZIzWypjW69vP8GdkJA+ GMPpLus5OJRtpSygFK5l V9TnVURauwmzoRIe gZdwTM9cDENcbxhdJBBs bD1fWABiB2h8IdCiGrM2 XCneF4IyDTAfsrisZk91 cJ5fTnXtNjO4YEyi E8ArdeP7DOHunAMtYAeu EVD4M35mp3V2TKHuQVQh ZYH4eFG2jZ1elOrkhpvw bGVmdDsgdmVydGlj FPouJTpqE587FLPppKcm PkNvZGluZyBEYXRlOiAg MTEvMjkvMjAyMzwvdGQ+ ZHBqOGY4lQggYVPd bCIwMPvnSc9udPuakJul GO3dWZKwvpcrZWLnwI3n GLKrpRRcwGtfLD7hKURi jwgvp216KiTcEHG0 CSNeqPFnR7VtoI3qRtNo EUWgWXIeN9XswTUeVNxw B618CLhaVxS2QCFgekPg Q7BpTLHpgTsdRtJ3 a4W5Sg9Nk9CmgljpT9He eDLiRfRtQjfhDJd3A2Jv PjwvdHI+HM29UPFlTH72 SEu0PIC8kUjwXVlg FDTbI4IoyX5dWeZuWBHe ZGRkOyc+PHRhYmxlIHdp ZHRoPScxMDAlJyBzdHls MK3vOg2tAJHiUDUl zCkcnUJpVeIfd7qsNKBf VZjlAA0ukByeJ6UjtQP9 HKTio3t9Hd07B60iH2Bs dXA+HBXniVP9mXC2 yO3dGkEmKdM5ONyyK021 CqXtoKRsMoude4nyh2si uRe3XmY6IGCexgWwqNvg ZXQ8o8AdIf71U72t IHdpZHRoPSIxNSUiIHZh rGpklo8piB2rWe1+PGNv zZI7hYR7vZ7pVxVgGrC7 EYzoH713CvYhrBMo Idqac5vll1wabKx8TcIi WOJfrjMdyUpgOAJ2b4Pq Qm56V6StsRkfl7PmDpw6 ab55jJHib6V8lSL0 K8FfKRRfooamvUMieZgt XH6qQOSillkjTZJioK3n IYQvH3n7QsImTiU0AZuh N3SbokA9FIYfdHDg XDYnuXFWuO0qigfqv9ve zjddYmQhQVGdRQp0AAj0 OJFydUwjWqTaXVZ9TzM2 VEU1eOVepT4fgGvf fmvifV6pNoi+VYN5xEEl rEUEEP8tWgptjDY+PHRk BRX1bRykNBaeGQKztK7t WBDsF2s0MfCwFdP2 HWgbV6IrhbP7EWQkjVVx TWNfdBGVpC2djkmpe7tw qocoBjDtQIGnLHy4NTu0 LWFsaWduOiBsZWZ0 HiC4EBD7yPGmgI1vjZjl ftpwjQ2fYoz+QmlydGgg XKQ1UEp2L6VrGgm8XNGi aLgvXV5bdLMcOKrr Gp7ysZccaThcPD3jVGLe mrpng261OrWeu1scVTLt aUUvBJghGEQ4W21qe3B6 PHWiXHEeZLZ0vNO3 cF1bkBlsrzscuSVmwUiu jjPrjZbqKAwjMWjyS479 QDYumEggCtXuMNi3B3Ro Kkq1QFBuvBobIC3y oRAoZPwnZo7slVszoSar CK6nXFLldmwkq474TbLo u6oyRUDanNYcSBzkLLR8 R48py2A6SAWzGTEt YKZ9fRE3hV9sgRtivhvo bGVmdDsgdmVydGljYWwt MAatM235YBVdnNcwTfUm uAp6B3EtLvp5UHXz sZsqGI7loJApWGwoNg3q uWsvaTxyLX8mDNJooirx n326XrTlm3leZQEydDSd RKlhCLR5B70ja3U2 MXJxCYDmPDI8pQW3bD6m bGlnbjogbGVmdDsgdmVy lLrjLQzcVPmlJ441YOOv cDsnPlBhdGllbnQg VGshEIj4G6YjCckdpIU+ GU73GNBxIU22yLJkjCZc f0nbmVm5LbDiBTIhXVB1 gMqxDUoav7XxFEVp C26sjHNpl4G6LJNwaTav ePLtJsZncUE8hD6aSVrl gqvfq4rxequlUpdur2zf ww02xS07W73eYHlf ZHRoPSIzMCUiIHZhbGln gg8kfN6rVo4+PGNvbCB3 oSW1lN6oXSTaSlK9OTmu D844FbKofHUoZeha t4jne6xobPf9JvG3TLLa iwCqgApvTPV6o8QmCj77 Y25cREtzTSNeHQIoUQZh YQBlaWsukr2fuK4m Ii8+XBDadDM0kYY3aA2h GuWbKyC1CAigJ157DrTw lZQeIiohN74qG1UwaOI+ EPKlJcj3DRZuwEdr OZ3soLPmATwgIk2dCDY7 KjTlSdTsYNkxN4RuVJNe wexozdfviNJ0QZOjMRHi vP11Ua7elKknYUHs zOSFrZ5aistum7vqojnp MnCqYCArCVl5JMr1CVMw cUihRzJjCVF5YqV0QFG7 aIYcnJ1cnGoryigw kP0hV3QvGOHspkkgGg36 kI3tVwHnZmJ3QKndSru+ F5vUOqCBWDdpA0uHEQVE KIxOGN1DFNkptTU+ PNYmWCQ9fKqoIRrqJISd kJ9hWKQgC2n7MiJjYoD1 ASkvJ5WtKVCsjbruHv21 lI5mNpOpHjV4VAvc V2JtffP6XBTqiLRyFWxe WGH4A05fy0U2VXQbEXNp AFU5vPG8mK4ouMmiixcd bGVmdDsgdmVydGlj UAwkVYfrN651JQCuaUld NxI5QoEqYmGtSOO2Q4Hp Gfo5JSFugFlxSM5kcRAd KHxkKd0bcFewxSyb VC8cXCJooaucQKOjnY8d FEAlyIBzwQkrSU9zOOVd gnrtx289CcLbPGP4RQVw rKUkE3BmeS0mMvFi LGUuZTNcL8KtfPNaQVru I508IPscNrD7QFMfazCx R1RzASXztRovXpG3z8O7 Ni5bUIQTLMHqsbdr dGQ+FFUfGUT3aTydWPkt URNkiR7kBHIvY6m2PrOd EvT3CClyE8EjAWAbjjry Xj04xR1cLoJpVwU8 IVbdU6NvuhQ3GPSkvOIi XIvoSSP9Y27ed2N2MJEa QHAvSBN0tAC6gE5ytZre bjogbGVmdDsgdmVy fHvsCAkfDCmiI986QTOf cDsnPkZFTUFMRTwvdGQ+ GXIhLHL9dLypQSpsNUFg kJ8vIUTtP9u0JiCl DxJ1JLtsU4OlFXNdwztx Ku47gE4iFvExYuU9XDct W8DtzhO3HKToyOXnOVsb INK8M00nu7W3DNWh CHWbYTB8tUK5uR9jtJwp bjogbGVmdDsgdmVydGlj CEisVZkrZ598FMWfcTcp OnEgJFWsZF6xzFsd dGQ+OJ35qd57S1FyOluo Ybd7NVNiLTM0wFR6eL8y JUKfOYyrk2M6rHC2V8Np hoPxtv7wd4nsDLXb YNgmG04rpOSsy2X0FLFp aIH2CZVbqBquPoRefV10 Oyc+YHJrfTnyl3UfKiub c5rvg2pvuBd0YoJv TBCxjfYidXlsOBE6j2Ca Vq11R41iNZofHLGsFCIr DCYoRHDozLqtcb1ouS7o Ii8+DIPltME7xKL4 hF5zRvKlXpZ0IKpnY893 FyXlzKNqBamni5tma4dd vLp5ZjTzEMAkzhJheYia JMG3m8ChYh15T1Nd qMgrb0FgHfg7il04fSLh p8C6oSG3S4XfJUYhfkrn lSTqdKyzHO7pHHVjgepv VWXalR7eBWLvV0z2 JcLpOrI0TPsaM8RjxqF2 ISFbuJRtTAEzuYQIxK7g bcawp0uuyffwXtTdIIEu MWo2EXo1DTFqgJqy LpAgORX0CkQ3NGB7qQEj dG0zeUftgarjzN0wGew+ DUc9m0mkvPNaLE1eiFK9 TS98NR99aSKma5X0 zZZ5R7IrXAXsjzmbvjrz eDY7TVBdNUTzuC48Oi9j sRlzBx3iHZEnPPM1RKTd dWKwB1PpxQ8yVfTk LROxRRPeU1MerFSeMVon D351PZpfExL2HUQgfsVj B6HlKQCimWolCdI7t8Q5 Um3GNE48GT28TN66 sYXjx4A1gET7K1IkBHPd qkalwewcqZG9UCOfCVLe vT01Pd4giTjjAy9kJSTd SZW5YFYgaKNhB7Oo aH5yVwQbNDLkZPJoK1Cn nFUqMXvtU259UGjeWhT0 EIIeyiKeV7XnJTVriFfe KvO2p1K5Ro6BEv91 LS10FC92tLTya4K8xFW4 O5MiMGMddgjjmxakgMT5 ASEtMUOaqQ67Hj2rwRme Tj6qGBAhHXH9JKQq tYPfI7WxrD4iAcXhVXXj JIFrR8AgdXSqUOdmW735 CPxiHzL9SUGmxzFnL1Se SYSenNxbWzU5k6I7 Nh8ZXMasksw7V8OqYiic dHI+KJ27MREhMS52lOZo kJVqm7uxfOh3QgWpTBFp EAX3gWzkGMkyt9Sg ZXI (more content not included)... [facility] Coding Summaryon 03-05-2023 Coding Summary HTMLBase 64 UuvllystGCb7cJy+PGhl YWQ+BN5XMMNqZ00wdGMc tI9sH7SWSGrXYfvgFBGA CAhHCrGidcIwHR7nqZMw ZXJu IC8+SU4hHQWwNibxtROf y1G8lCX9S89ewa3lOEyp lBA7AHIyHmLssfugo5wz gFp0DIetIisqZaXk UZShjL44LRM6mX35Wy13 dUZadGCbi8tknCw7RbOq RBSxQMD0xVgfTRhsb6Co UMFyM42lwQNqi3B8 IGNvbGxhcHNlOyBlbXB0 tW0aKOyjhuwbp3aebpxh Tym1ky45sPCsa5V0nDS8 V6ZcboA4DPOypDEv ZjndcIRMmJ4eaekkz9qd ajovRyTmKNTzNDf4LOs7 EZSdhAdfSlQrVF88VRV6 KZTrluCwK0KbICPe xGsdNrN9v2Z1Kz6MP7KY IxarU5ZQLSOGUNylwRT+ SL22qa43E9FwVrtuAmo4 BXHnFKF3xUJ7hQ0x GBQwMGfmd4I4hPG2E1Jn qwGquw8rm5dbTQNhCPni D78adZLth7B9NTSzmFB1 XVAlmTguIrJnyD46 Oyc+BAXnnMbva6ScSuuq u0yob1xlmXp7ChbtFAZq jzLylZqcAMB2v2XwWc3p YVYhnHF0jYO9gO7g GsUzDuP9ZFvnB391LlYu xVZaJszzM58wX1BpaFG+ JJRlAhr4LLLsjRlrSE7i A1DqQKQiqwkyuFQq uBeyJA9lZRQdszkyRLNh lQ8rKHTsP2s5KoHpNrB5 KHpwO5ZbLOKdoqduCc06 vP4wIsXcVhW7MGsq U9UbcyU5JLSmrDHcKMzn DDF5Z13mq8V4RUWyTSKn KKZ4dQN6iR4ayLxfxqje bGVmdDsgdmVydGlj AQovKPumC611MCHvnStc PkNvZGluZyBEYXRlOiAg MTEvMjgvMjAyMzwvdGQ+ WRSuJSK1oXsaKCVr nPZyWBreXx1qmTmgfXke VY8qHLDlpemaRHQbbY4o FIJqdGDlfNxoTR7eHJBb odrav870UwHdTZX8 LRYqyTMhC9LvzK7dKpUe WRBzJNUaJ2JggNCpVTwc C534OQneObJ5PLFzxqYg S1ZoTVWhlIsuAnU4 v8S5Wn1Id6KdryqdT7Uk bXNvAfBpMlkoFOc8J9Wk PjwvdHI+TN32NYYnDG42 NMz9URO2bIiaWWme YZFhR4AyqY5mKsIiRMBe ZGRkOyc+PHRhYmxlIHdp ZHRoPScxMDAlJyBzdHls MI8pMl8yOSUgLLZu bTvnfKCcEoBwf4iaIDVz ZRcwTE4hcHgrQ5PyhHN2 HMNor5h1Nc63N83rR6Na dXA+ESRslLK6qVP4 cP6bMcZuTdV0TJwmT765 TrOsiPSjNiwmc5rqi6ej rBm5YhE9DAIzcoAjcRer OQG3c7BkCg15M76v IHdpZHRoPSIxNSUiIHZh nMebjx8yjQ4yFj5+PGNv hFC4vMQ9vR8kXlLfZrN3 TYuxL067MxOacAFt Zcaul2lbc2dmbSd3UwZk VVRrubFjvHvkJVO3m5Am Lj61F7AehZlfw6CzMte3 qg76iVOmc9N8vUM5 M1CqXOBfrfhvxAAsgAum RA0tQXHcefzhMHNnlK4z GSYoK0j4GaOrQjH8OWhi C1UpopP5OKToqUIg LPMpkQFTqM7tdcsex7ul xviaUlEsRHStEKu7DNo2 ZMBonNbfPnDhYZF0PbJ0 NPV2iJOykU7hcElq xeexkW3cMka+LIG5gFTh tQRAWQ0vRabvoEE+PHRk ZNM1aXchCIvnLTUasS5x TWKyM4f4AhNmAqY3 GKjgK2WfhgJ9LWLihHVl LSBikQQIsR3zckywn7ca zburQfTyLRMoHKn0RAs5 LWFsaWduOiBsZWZ0 DeX3OIH7wWPnkA1lnHuz tbiqqL4aWxw+QmlydGgg NTE9SMr0H8EjTrg4FVVl qMipVM9dpLJgOWop Fi2hcMoshOpeYJ0uQPLf wqrjz697PvHvf4swPCKk eWXtIXdhHYU8I07hv6H3 ETRpBOLbWTY6dIO2 uE7hzWyysmxwsKSjjWsw hbTvnEunVIxaDXiiV363 PGBdlLahUkCgZVn9A0Ef Siz7GPJudGugWP7b vWYqMGymJk1muPuewBli BY9hIINmhgzmz484UwGs a7bnCJXajYZrDTxqOZN4 K26yq6N0CPWzLTAp FUV1sUC5cM2psPchdaqj bGVmdDsgdmVydGljYWwt HVkvF913JPGyxCyoBtKz aHo4L6XxKwa5XANg iSjoWC9vwNZoMWeiLt9w cMbzhWbrGD0cOBBawcib k795WsFxz8ycFBPhqZSp LXbsPII3W43jy8V0 LCWaDJGlXOX6gAQ8dV5r bGlnbjogbGVmdDsgdmVy lHjiSFvvACxpB814TTYj cDsnPlBhdGllbnQg UKjsHRx8L7WnOaidsDK+ ME46ENQnUI06rFAtwYMz f3phiNn5DpYqSVPjPQZ8 uVpqBXzlg8AnZUBj A24vnQOvo7H5SMSooRsm kHZjBpBlhZC6pK3xFQas qptvk4rxhdpoTqdml6ge yh19nE48G00fTZki ZHRoPSIzMCUiIHZhbGln mr3quS3mJa2+PGNvbCB3 vXY0yU0vEYIgTsP0JSwg Y541JcGshPYsJaxr q2nve5xkiMq2UcT9YNZi lfDtiYbvRUE3q5CmLk78 X73aHGyaUAGlUATdTRPr ASTgnGcidg2ltW9h Ii8+QKVcwFO1oFP9oE3k BxEwFjP9WUnoY923PcIs oYKfFsngX42vM7JumDT+ QZYuWct9JGJvrLoy NX6unRBgXXqiSh4zZCE7 IyPqVxVaCVegH1OxKFYr wwouvbonqLK5WUYyCPQz fC47Py0fyEozMMHd uXYDuQ1xijjje7zaemrr OjLyGQUkUCd1JUs1FEVh uUbuEiAdIQC4FqX0TEK4 aZUlgS2tvBvinldy fP6kX5TzUEZcdgnzDn00 xG6jMrViPcI7HKroKft+ U4qQHbKTRRdxZ4pJFMDR BPpJZQ2JPRxixEF+ UOMhAVZ8mJlvZBqeZJDe qT6vXDVkZ7v1MeRjJzO4 LChnY0QzONMptvcnCp12 mC6iQyOeApC3ROai S7LnieI1EWPeqWDcLPyi VDZ7L82yu3I1IHDyEQEs QKV3pYT7fX8xhLtomayb bGVmdDsgdmVydGlj JNxqJOuyE943UGPxbVzk CxC5DbNuIfXbLGN2R8Td Bjo3XBNxlWfyUU8nxRTp PDfqYw6tvFnsoYxw MK0fELSoxowzFQDzcS9b SFUlhEKojDmoIJ8aLXZg ijzuz749AuTcHOX7PCFs zIXvI1OszO8eLaLy ENXlSJXpV0LlmAToMQig Z150BBnsFsI7LZUeeqFi M8CvLGRvbSvpPxC7i5L8 Fx0aDMEOOMPgzuzh dGQ+RLDvOFZ9oOqgXCni YVHrvL8wJORyB9f3GjLo NlM5XPcxK3VwHTFbrebb Xl93iL9vCiQrNfC3 TCvvO6HguhX8GRExmQJf MAmjIND6B63zh4S3DMDc IYFeMDT8iOG2vP9mjDab bjogbGVmdDsgdmVy rCkyGMheKUwmL976ERTe cDsnPkZFTUFMRTwvdGQ+ QDTkQWU0iNvdLTmmZXVg wP8nBPZeW5i0BiQu QbF0QGiuW5FwIVRieunr Vd24bV7qHnLrCzE2JBnt R2XfqbA5VAWgxLCzNDzn HVF9Z46tp1B5YUTw BZZaWTM6vAZ0oU6tuGub bjogbGVmdDsgdmVydGlj NAhsDGttY995DAHdtQdw Xt2HQK03UY02A7Fy PjwvdGFibGU+PHRhYmxl IHdpZHRoPScxMDAlJyBz uMuvNI3dSw6kYSPiBOXm hVuaxNYtKdQtg9rb HLIdARvfAM9voQnfT3Lg gEJ9SKCgj4q8Mr31U59h Q9NryBW+MRHqpIS1xPP4 sB1cRbAqJqM1RQjr S238QoYznNUzCeigg1ae o7ibtRr5TgPjHHBxvjPq yQtnXGR8j9FeGq38G54v IHdpZHRoPSIyMCUi UDFrvQqypf5vfI8wEr8+ PBTvyXU2kOF8bH6oTaDw EkH7HDdoH328ZoRdwIWe LaxvF68kS3CjvSA+ NSGnFrx2FTGaoFznZM5a yJKnYMpnKs2tZRD6WxLc JtJbAQgtL2ZkIHDqtidn zplpgQK1GPNwGOCv lV99Cr7pmYjyPx7xDCIw RCF6DFBwzNGyN7NwnD1z EhTiIRUlBDUcI7CtjJIh LGybV846YJirVqE7 LIQcsuDeZ0WgBICdrFoi FoD8c3F0Um2LiAmvuQIc QJ7hMqNnENx8U0ClClo3 SPZvwCyqCG9muWAo REurEg1yfQnvbNzoET6q RRByupchi043KoBxe1mm EPWahYYrMDqbDUS6Y55y m6I4FLRtBCSpYPK5 pPQ9fZ4zzXhuedhhnDNc dDsgdmVydGljYWwtYWxp A550OHQwxCmtAmJXXhb4 T0TmGds3JZItuPwt QM8ebQKyZSmiAj8moNhg jJutBK1yITTjqriad669 HjFee5tvQJAkpLOcZZsx FGD9J27md9G4EIMo IZBxOCQ0sHU2lO1bqDbs bjogbGVmdDsgdmVydGlj ZKfgTUsjG475ODCmwJwi Ot1SVxm2A3VbUte7 WAPbgPtkZJ5tvNPkXRtg Yh0zqUqokThpRI3rEKAq pkzae746AyRzy2lcXOGa bFCbUNgiSPX7X47q k6T5QDXoJMDeXNY7iIC7 eX8pnUhpwvxioWKtxCqn zgSibVpmEVszBSojW976 IHRvcDsnPlBheWVy OjwvdGQ+WG06lo38D4Xd WawpTls0ARVbFUR7tWF4 hL6vMGXgHWbpx4G6pGS9 L8FuygBgyf0as8gt YXB (more content not included)... [facility] C Throaton 03-03-2023 C Throat Ordered by Discern. Normal throat jonny isolated No pathogens isolated [facility] Comment on above: Performed By: #### 6 [id number], [id number], [id number], [id number] ####[facility] (DEFAULT)[address] [place] [address] .QC SARS-CoV-2 (COVID-19)/Fl u/RSV (GeneXpert)on 03-01-2023 Internal Control Pass [facility] Comment on above: Order Comment: Order ed by Radha. [[email or web address]] Performed By: #### 6 [id number], [id number], [id number], [id number] #### [facility] (DEFAULT) [address] [place] [address] COVID/Flu/RSV (GeneXpert)on 03-01-2023 Flu A (GXpert COVFLURSV) Negative Normal [facility] Comment on above: Performed By: #### 6 [id number], [id number], [id number], [id number] #### [facility] (DEFAULT) [address] [place] [address] Flu B (GXpert COVFLURSV) Negative Normal [facility] Comment on above: Performed By: #### 6 [id number], [id number], [id number] #### [facility] (DEFAULT) [address] [place] [address] RSV (GXpert COVFLURSV) Negative Normal [facility] Comment on above: Performed By: #### 6 [id number], [id number], [id number], [id number] #### [facility] (DEFAULT) [address] [place] [address] SARS-CoV-2 (COVID-19) RNA MILY+probe Ql (Unsp spec) Negative Normal Negative [facility] Comment on above: Result Comment: Perf ormed by PCR methodology. Performed By: #### 6 [id number], [id number], [id number], [id number] #### [facility] (DEFAULT) [address] [place] [address] ED Clinical Summaryon [address] [facility] - Emergency Department [address] [place] [address] ED Clinical Summary PERSON INFORMATION Name: LIA DESAI Age: 22 Years Sex: FEMALE : 2000 MRN: Acct#: Visit Reason: Cough; Throat pain; COUGH, SORE THROAT Arrival: 03/01/2023 14:12:36 Discharge: 03/01/2023 16:04:00 LOS: 000 01:52 Check In: 03/01/2023 14:12:36 Checkout:03/01/2023 16:04:00 Address: [address] [place] [address] PCP: Provider, Unlisted PROVIDER INFORMATION Provider Role [...] verbalizes understanding of instructions given Comment: Normal [facility] ED Note - Physicianon 2022 ED [...] Resolved Disease caused by 2019 novel coronavirus (8019465076): Onset on 11/23/2020 at 20 years. Resolved. Comments: 11/23/2020 CDT 16:07 CDT - SYSTEM Problem added by Rule (IC_COVID19_AUTO_PRO BLEM) following 2019 Novel Coronavirus (CoVID-19), MILY L from Nasopharyngeal Swab collected on 22-NOV-2020 16:44:00 EDT tested positive for COVID-19. no history (676566687): Resolved. Contact dermatitis (60031588): Resolved. Pharyngitis (9341512739): Resolved. Cough (96817892): Resolved.. Surgical history: Tonsillectomy and adenoidectomy (449116511).. Family history: No family history items have [...] any worsenin (more content not included)... Normal [facility] ED Patient Summaryon [address] [facility] - Emergency Department [address] [place] [address] PATIENT DISCHARGE INSTRUCTIONS Patient Information Name: LIA DESAI Age: 22 Years Date of : 2000 Reason For Visit: Cough; Throat pain; COUGH, SORE THROAT Arrival Time: 03/01/2023 14:12:36 Primary Care Physician: Provider, Unlisted Attending Physician: Tom Smith DO Comment: Visit Diagnosis: Diagnoses This Visit Asthmatic bronchitis (J45.909) Cough ([id number]) Throat pain (580542221) The Pharmacy at [facility] is open Saturday through Saturday from [...] alcohol and/or drug addiction problems; contact the [facility] 29/10 Crisis Hotline -Text 5QYFH co 966343. If you received any narcotics, sedation, or [...] and treatment you received today in the [facility] Emergency Department were for an urgent problem and are not intended as complete care. It is important for you to follow up with a doctor, nurse practitioner, or physician?s radiology assistant for ongoing care. If your symptoms [...] so we can reach you if necessary. [facility] Emergency Department has provided you with a complete list of medications post discharge. Please inform your core drill operator/provider of your visit and for further instruction on these medications. Any specific questions regarding your chronic medications and dosages should be discussed with your primary care physician(s) and/or pharmacist. New Medications [facility], [address], [place] [id number], [phone] albuterol (Albuterol (Eqv-ProAir HFA) 90 mcg/inh inhalation [...] Acute bronch (more content not included)... Normal [facility] Strep Aon 03-01-2023 Strep procedure control Pass [facility] Comment on above: Performed By: #### 6 [id number], [id number], [id number], [id number] #### [facility] (DEFAULT) [address] [place] [address] Streptococcus A Negative Normal Negative [facility] Comment on above: Performed By: #### 6 [id number], [id number], [id number] #### [facility] (DEFAULT) [address] [place] [address] C Throaton 02-28-2023 C Throat Ordered by Discern. Normal throat jonny isolated No pathogens isolated [facility] Comment on above: Performed By: #### 6 [id number] ####[facility] (DEFAULT)[address] [place] [address] ED Clinical Summaryon [address] [facility] Ur[facility] Care [address] [place] [address] Clinical Summary PERSON INFORMATION Name: LIA DESAI Age: 22 Years Sex: FEMALE : 2000 MRN: Acct#: Visit Reason: UC - Sore Throat; SORE THROAT, CONGESTION, BODY ACHES Arrival: 02/26/2023 09:55:01 Discharge: 02/26/2023 11:28:00 LOS: 000 01:33 Check In: 02/26/2023 09:55:01 Checkout: 02/26/2023 11:28:00 Address: [address] [place] [address] PCP: PROVIDER INFORMATION Provider Role Assigned Unassigned Errol Ortega ED PA 02/26/2023 09:58:25 Birdie James HEAVY TRUCK TECHNICIAN Nurse 02/26/2023 10:17:32 VITALS INFORMATION Vital Sign [...] verbalizes understanding of instructions given Comment: Normal [facility] ED Patient Summaryon [address] [facility] ? Ur[facility] Care [address] [place] [address] PATIENT DISCHARGE INSTRUCTIONS Patient Information Name: LIA [...] to help relieve symptoms, such as: ? Ejna-yte-xyngqct cold medicines. ? Cough suppressants. Coughing is [...] other clear broths. General instructions ? Take dmxh-ety-wxmblpz and prescription medicines only as told by [...] other (more content not included)... [facility] POCT Rapid CoV-2 (COVID-19) Antigen/ Flu A&Bon 02-26-2023 Influenza A POCT Negative [facility] Comment on above: Performed By: #### 2 [id number] ####[facility] (DEFAULT)[address] [place] [address] Influenza B POCT Negative [facility] Comment on above: Performed By: #### 0 [id number] ####[facility] (DEFAULT)[address] [place] [address] SARS-CoV-2 (COVID-19) RNA MILY+probe Ql (Unsp spec) Not detected [facility] Comment on above: Performed By: #### 1 [id number] ####[facility] (DEFAULT)[address] [place] [id number] Strep Aon 02-26-2023 Strep procedure control Pass [facility] Comment on above: Performed By: #### 6 [id number] ####[facility] (DEFAULT)[address] [place] [id number] Streptococcus A Negative [facility] Comment on above: Performed By: #### 6 [id number] ####[facility] (DEFAULT)[address] [place] [address] Urgent Care Note- Provideron 02-26-2023 Urgent Care [...] Resolved Disease caused by 2019 novel coronavirus ([id number]): Onset on 11/23/2020 at 20 years. Resolved. Comments: 11/23/2020 CDT 16:07 CDT - SYSTEM Problem added by Rule (IC_COVID19_AUTO_PRO BLEM) following 2019 Novel Coronavirus (CoVID-19), MILY L from Nasopharyngeal Swab collected on 22-NOV-2020 16:44:00 EDT tested positive for COVID-19. no history (305283437): Resolved. Contact dermatitis (09027482): Resolved. Pharyngitis (6244606761): Resolved. Cough (20367666): Resolved.. Surgical history: Tonsillectomy and adenoidectomy (475290474).. Family history: No family history items have [...] collect, Neha (more content not included)... Normal [facility] [address] [facility] ? Urgent Care [address] [place] [address] PATIENT DISCHARGE INSTRUCTIONS Patient Information Name: LIA DESAI Age: 22 Years Date of : 2000 Reason For Visit: UC - Sore Throat; SORE THROAT, CONGESTION, BODY ACHES Arrival Time: 02/26/2023 09:55:01 Primary Care Physician: Attending Physician: Errol Ortega Comment: Visit Diagnosis: Diagnoses This Visit Myalgia (M79.10) Other viral agents as the cause of diseases classified elsewhere (B97.89) UC - Sore Throat ([id number]) Viral sore throat (J02.8) Viral upper respiratory [...] and treatment you received today in the [facility] were for an urgent problem and are not intended as complete care. It is important for you to follow up with a doctor, nurse practitioner, or physician?s radiology assistant for ongoing care. If your symptoms [...] of medications post discharge. Please inform your core drill operator/provider of your visit and for further instruction on these medications. Any specific questions regarding your chronic medications and dosages should be discussed with your primary care physician(s) and/or pharmacist. New Medications [facility] [address], [place] [id number], [phone] dextromethorphan/gua ifenesin/pseudoephed rine (Capmist DM 15 mg-400 [...] without (more content not included)... [facility] Coding Summaryon 02-22-2023 Coding Summary HTMLBase 64 FodpdzjpFPd4jSg+PGhl YWQ+CY0LXHHdL24qvQVd fG4zK5AOBZmTQeopQATL LQdYCgYwcmWdZN9ylCRy ZXJu IC8+ZE6rAHWgQpeahSDe o1I8aUO2J44jcv0wULft fVQ1SZBxEbMdqijdy2ym eXi5PCwjZdjfGcQi UFWvwJ72WNJ2zH85Ln14 tQYwpRRiv9omqTn8BpXf AHUtMMA2qXkjEEnir6Zz OJHyZ88wyFCar8M6 IGNvbGxhcHNlOyBlbXB0 qL0zMRjghkgkr4ucnuqf Yng3ru67rLAxb5M3yGX7 T0DldmC6BAYftFRe TpfciYZKiG3ugoajv7te vnfgAmGsPWQkNTp6HHv6 AIMrlXnoTgWyES67LLB2 WBYqlnFqY0QcTYKe tHmgPnA7e8Y9Sg4NE4IX TnxzJ4NQQNUVKQsloHA+ CS40gt92F5JdKypvEjg5 INWtBBE1pCR0mN2t SVZrOUkht5A6hHW2H0Zo jwVbpo3gq6siPQQrLVkg D86fdLIja3J3VVRbeZF0 RVVyrIqjPoBtiL89 Oyc+GPEvzQmvf9WxGmgn k4ctw2ozrFf7YoxtHVAv tjNimSemWGA3n0QsCr1s IWDzqPV6jRT8pK3p LdIqHiD2TBuaV154EbTu jFNcGwecT77fH7GneHG+ EQCvCkx8ROLorBtkFR1g B9JcLQBkbutyeTSp xVokVI2sJKBxrmsiJQWm rN7kFYXsE5i4AxZhHnP7 DQshL2NhHXOdiifrSm85 cW9cRyCqCrM2NAba A2NisuF0WUFqjHVlQKeq LJH5B13yq4V6HGOuMZTo IXO8eLJ8uJ7soAbphxnw bGVmdDsgdmVydGlj GUgzHNhsI522KGGvfAst PkNvZGluZyBEYXRlOiAg MTEvMTcvMjAyMzwvdGQ+ DIPmCWR6bQunFDMg bOVgNIkiLj6yvQinjRlz GN6rXVUslerdKIFfcM5m XEHwmIEmwOosPX0oKLHl rblts347DnZhRUO8 YTVotHTyM2OmfF5lWpWf LFFfOFGeA3NmcFPeGRyn S430PDzpIsI6CSKzawIf G3IlJBKioQdpBsG2 p3D8Io1Sw8EmzoghE1Qo jBGoEaMbMjslPCd7M4Su PjwvdHI+RO24DRZdDQ85 QAd9NVI1cAtkYJmo ELPdD9EhpC8dMtRdDFUe ZGRkOyc+PHRhYmxlIHdp ZHRoPScxMDAlJyBzdHls MI5rQl3vPYJdZLGy lVboqVCwZkPny3geWAFy RUduCG2jcSqhF5FfrYL4 OPVcg4a6Av55P19vI7By dXA+AZDklRV9xNU6 eX4kIqRrPaM7RCauI793 CgWqoXUsEpobz2vjm7tg fLb7AdO7IZBysoLcdDpr IZU9p0XoNr37R99p IHdpZHRoPSIxNSUiIHZh tBvkmx6uvV9eSy7+PGNv xZX5lLI5rO4lXiMbRgX7 UMsqI902FwGluADu Nlezy6uan4nwkMe9MoLc GUHtjbAxjWvnQMO1g8Re Jw33B6ZdcKuum8SuUdd4 uq48oQKoa6H5zMN6 N4HtQLDhjduasJIrcLjn VN1gDMVcjnvdXWYnuM4n LGHeF4v3OvGyYsN4HTto Z8TmupE5DEAhgVAd HHAevALOcZ3jzwdhe2zb dzvhBuBkFKIxGGi5VLj3 GPYjkRitKjBaRWU9FrH1 VUT6oEZwlE8ktRsk jmjucK6aMge+XDN3xEBd vDJQYU7vFmeezUA+PHRk VUO3tVwuRPyfRJHsrX4s OLExW0l9FtKdDfV1 XDrbW3OmfuK7JFZhhGWx AMXjtZCSnT4zqlnmp3ci xztdCyIeDWQhJVi3FMc3 LWFsaWduOiBsZWZ0 QcQ3SKY5yCDhgC8kyJxr vxzaqC2dRam+QmlydGgg HRG6BMb6C5KoTvx6NEOz sUlnTB0wzQLkLUrp Xr4ndJyiaIcmFV4kASUe fpnkl210LePth2afYYQm aVHjUMbuVJU2N14ub5Z5 RATxPKUhQOL3qXI9 zA3hyKmuklxnmFSalQkw ahTqsSgpEZzvIQecM061 UJMxfKudMxRmXCt7Y5Wy Fwk2XKKyxKwmLO1a qAEwLVgiMs0xqQooqGdo ZT9yGADgyuojl052GlFx k3qaDSRgmECkVVuvLQH8 Q41ar8U3VUElPBFq FOF8nKV4kV0tqCpswyxg bGVmdDsgdmVydGljYWwt IQggQ135JIXikBwtSdAs rTt2Y4HkErv7UBBg eUweAQ1ykPSeMWkqJb7m yVrtbGasQP3bPSWmxejk i614CwQcn8gpJQJtoLUd CKihNOM6Q51fq4V4 GAViVGKjCWU7jFR4oY2n bGlnbjogbGVmdDsgdmVy aHfwNHmlHWxxP476SQTb cDsnPlBhdGllbnQg CYuyPBi6R3AhTgevvQA+ BL04ROJcXV12dEZtkQUu l9birMo2ViKlDZWsZZZ8 cGoeBJzor7UjUJGb M04zwZNyr1Q6SKXlnWbm hZYmFxCtoGY5cB6iGYmu ohjzh7dueegvKrlxl1ft vz43yI57C53tPAkj ZHRoPSIzMCUiIHZhbGln bt6abF5rKv3+PGNvbCB3 tHA3pQ1fVIXqDyW6DNhl M711OsBpuLLqIaij x9hap6nvtNv3NfY2BZOv erMvzLaqDMX7e9AbCp86 Y62wCXaaYAKqZVTwROGq RHWcpVltmm1byT1z Ii8+BKKkkDG7yYY3fF1d LvYbTyJ5HFgxY166OeHx yGUeDafrW77qV5EcrUN+ WKOgWts9ZFYwaOld CD2cvBQpWMmsAh9kJVV0 CkDjReMrYIpdI1KuNZEc hjavmkliyRW6HKIqONMw yG71Uj5avBaeAWOf mIUPkW8nrilzj5ylfmnf HoJkQWZnQKv1YOe9WTDr nChuYkItQUK2WsI4VMD9 tNYscD1bmByhwiyk kQ6xA6JfCPAcqgbaSd81 nS3yWvWjEnI6VCseHha+ G2nGLeIEDLciR0gUFSQH EWfDUQ8NTMhvlCP+ RGCiQQT0lJwjSFofGYEb yE6pQOXkR2f3LlTeQdK1 HQanS5GcBYXqlkutBi27 uS7sViFgBqK2IYdn D4LupyU0SVRbxTVaWMuq DVY5G21au3W2HQThQRHd TFA3rPD5zU1rpYzjbeyv bGVmdDsgdmVydGlj LCgmKJxtO687JKVoiSsd BxC0DvRfFpVmLVH3T6Yv Vhe5BCQenFryUS0tlEUt KVwiVx2xkYofdOhl FF9mKPMjpnowJOFefE0e FKQvwIJuiNvkXC6jQRQl belqi844XoHjVFX8MPPn rLAwB2UlvR8jQeLq XURiYIFoI0JvcZGuJZal C130TMdxVzR1WWIycbOd F1ZaEIBseLkmCjK0v1J2 Rk5rJJOQSIBrboao dGQ+OJNmBTB0pXtdOJop NPZdmI9kOCUsU7o7ZbIe IbI0AJujQ0WbUGCpocsn Jy95vZ6uKeAeOaO8 RHlgU4IvhgJ3HANkySRa PNpsGFO5U60wn9G4CZRy BVJcUCW3lRY3rY3uiAzz bjogbGVmdDsgdmVy eKfcKNueTXgbT394VUCt cDsnPkZFTUFMRTwvdGQ+ IRBdDDS4pBgmXJkfWZUc dW8mKUOcR9r5ElPl TrF9XIfgJ3XjHSZglaie Cj27sL8eBrZuGyH9NMnp U4JyaqA6AYHjnRXaPSrd DQF1O03yv8I7VPIi KQJpWJM8yTU5cJ9ymBhb bjogbGVmdDsgdmVydGlj MOmbRDieS766HLWpkYmg Ug3TUS44XP13X6Oz PjwvdGFibGU+PHRhYmxl IHdpZHRoPScxMDAlJyBz aSgzPV1lQg6uKPOaINMy gPrjpIUwAdJbq8tp JPPcMGmlSI0ikWyrD1Mz gPJ6EKAou6s3Vc02I80k S5ZygHW+UAQirCK8eUT6 lN2cXlFqLbT6UQxf Q526LlThgUFvQulld5yj f2suvLg5SqPhTYBabcSz cLqqRNC6v5AnAr74S96c IHdpZHRoPSIyMCUi RKTjwFhxzp8pvW7jTj0+ LZWrlFE3yQE1kM6eIeIe FpX5ORgnY840KrJgxWHu EijjA63aD5NfoQY+ HMZrCbf7ICBwtZgkHC5s yKUaVTjoYi3nTTD0UeNs YzWkNNtoG6KxGFWnmdhr xkvytHN8JUFnSYZn eL17Fz6meTrmPd8eTNNm RHN2LIQkdFToQ4HnqK6s GkRpDUNgKAOdW6IpdZDx IRfmZ477NHwoPhR6 PEJhamFcD6YlXXTavVem SjB4b4M2Oh8YnUaqaFLw DW1sImRtJVv8I9SrMft6 LPGnyEhkEO7wkJBe SIsbIq7pzFqwqGlyLO4d MUJeiprqg434LcBxy1di BKPhvKZgKJktYUM6Y79q h2U4WFXbOAHkYPQ5 vNE0jL8lnDziteglgYPh dDsgdmVydGljYWwtYWxp I323ESThtEizDnQZWkm8 V6CrJlq8BSOjoOqe OQ8bpHJtUAhzTk6ifSig fTylYN1gTPIakdztv851 TkWuy3obLOStiPXxIHqa QUB9P58lh9U0RUIg UJLaFLL5vVS8bC3sxPoc bjogbGVmdDsgdmVydGlj DOekTHchW256RWSngWoi Oy1TXaz3D5GwEkd9 FZPwwTvdPV6jgNJsFSfv Zo5upKrepRkaKR8lKMGk bmzle629AgOmg1naARVj vIAvCNqqICY4T46k t4D4VXCmNIXwAJE3wBG3 eB9ihTzpwqddyHOakAyq urKqoGtkHKpnERjzU431 IHRvcDsnPlBheWVy OjwvdGQ+XJ35ty45P2Og QxqyLni1IIYxPVB0mFQ7 bX0kXAOyGUeca0D6vWH7 O4YihkAwsz8vc8rc YXB (more content not included)... [facility] ED Clinical Summaryon [address] [facility] ? Urgent Care [address] [place] [address] Clinical Summary PERSON INFORMATION Name: LIA DESAI Age: 22 Years Sex: FEMALE : 2000 MRN: Acct#: Visit Reason: UC - Wrist/Hand/Finger Pain or Swelling; LT HAND INJURY Arrival: 02/14/2023 17:07:31 Discharge: 02/14/2023 18:05:00 LOS: 000 00:58 Check In: 02/14/2023 17:07:31 Checkout: 02/14/2023 18:05:00 Address: [address] [place] [address] PCP: PROVIDER INFORMATION Provider Role Assigned Unassigned [...] Therapy Follow-Up: With: Address: When: Regla Hernandez [phone] EXT: [phone] Call for family Physician Within 3 to 5 days Comments: Call for help finding primary care provider. Follow-up for reevaluation. Continue with rest ice and elevation using ice 10 minutes out of every hour as needed. Return for any worsening issues or any other problems. With: Address: When: [facility] Comments: [phone] DIAGNOSIS: Contusion of left hand; Left hand pain Patient Understands: Yes - Patient/family/careg iver verbalizes understanding of instructions given Comment: [facility] ED Patient Summaryon [address] [facility] ? Urgent Care [address] [place] [address] PATIENT DISCHARGE INSTRUCTIONS Patient Information Name: LIA DESAI Age: 22 Years Date of : 2000 [facility]: [id number] Reason For Visit: UC - Wrist/Hand/Finger Pain or Swelling; LT HAND INJURY Arrival Time: 02/14/2023 17:07:31 Primary Care Physician: Attending Physician: DORA JASSO Comment: Patient Education With: Address: When: Regla Hernandez [phone] EXT: [phone] Call for family Physician Within 3 to 5 days Comments: Call for help finding primary care provider. Follow-up for reevaluation. Continue with rest ice and elevation using ice 10 minutes out of every hour as needed. Return for any worsening issues or any other problems. With: Address: When: [facility] Comments: [phone] Hand Contusion A hand contusion is a [...] elastic wrap to support your hand. ? Wopa-fxv-kfgjrng medicines to control pain. Follow these instructions [...] or lying down. General instructions ? Take zami-die-lplpjbv and prescription medicines only as told by [...] provider. Document Revised: 07/13/2021 Document Reviewed: 07/13/2021 [email or web address] Patient Education ? 2022 [employer] How to Use Cold Therapy Cold [...] the area (more content not included)... Normal [facility] Urgent Care Note- Provideron 02-14-2023 Urgent [...] All Problems (Selected) Anxiety / SNOMED CT 97887521 / Confirmed Acute depression / SNOMED CT 6938065888 / Confirmed Chronic post-traumatic stress disorder (PTSD) / SNOMED CT 044439785 / Confirmed Pharyngitis / SNOMED CT 9826703780 / Confirmed Cough / SNOMED CT 54438011 / Confirmed Objective CONST: -Well-developed well-nourished. -Acute distress: No -Vitals: reviewed. SKIN: -Gross abnormalities: No NECK: -Supple (ghvg-du-ejacj): non-tender. CARD: -Rate and rhythm: Regular RESP: [...] and Plan: Diagnosis: Contusion of left hand (IFR35-ZO S60.222A), Left hand pain (YPV93-LU M79.642). Orders Orders Patient Care: Brace/Splint ED [...] 02/14/2023 18:01 EST] DORA JASSO [facility] Urgent Care Recordon [address] [facility] ? Urgent Care [address] [place] [address] PATIENT DISCHARGE INSTRUCTIONS Patient Information Name: LIA DESAI Age: 22 Years Date of : 2000 Reason For Visit: UC - Wrist/Hand/Finger Pain or Swelling; LT HAND INJURY Arrival Time: 02/14/2023 17:07:31 Primary Care Physician: Attending Physician: DORA JASSO Comment: Visit Diagnosis: Diagnoses This Visit Contusion of left hand (S60.222A) Left hand pain (M79.642) UC - Wrist/Hand/Finger Pain or Swelling ([id number]) If you received any narcotics, sedation, or [...] legal documents With: Address: When: Regla Hernandez [phone] EXT: [phone] Call for family Physician Within 3 to 5 days Comments: Call for help finding primary care provider. Follow-up for reevaluation. Continue with rest ice and elevation using ice 10 minutes out of every hour as needed. Return for any worsening issues or any other problems. With: Address: When: [facility] Comments: [phone] Medication Information: The exam and treatment you received today in the [facility] were for an urgent problem and are not intended as complete care. It is important for you to follow up with a doctor, nurse practitioner, or physician?s radiology assistant for ongoing care. If your symptoms [...] we can reach you if necessary. [facility] Care has provided you with a complete list of medications post discharge. Please inform your core drill operator/provider of your visit and for further instruction [...] This is (more content not included)... Normal [facility] XR Hand Complete Lefton 11-0 XR Hand Complete Left CLINICAL HISTORY: Left hand pain. Punched wall. TECHNIQUE: 3 views left hand. COMPARISON: 12/15/2019 RESULT: No evidence for acute fracture. No dislocation. Joint spaces appear maintained. Soft tissues unremarkable. IMPRESSION: No acute findings. Final Signed (Electronic Signature): Gavin Mahoney MD 02/14/23 5:54 pm Technologist: KELVIN PATEL [facility] Coding Summaryon 11-27-2022 Coding Summary HTMLBase 64 ApeytiuxTMm8zNd+PGhl YWQ+QK8IYHMnR15kuFKf eR6fO5XOSHlFTtlhNLPS EYfSZmHhgjMqNQ6jvBKx ZXJu IC8+LY9iFUOvTdbpiHKe w5H8lQR3S54ikg1sFDyo yXR9UGXoXqBtbmqen8rw aZq0CZyyAbhvAmLc HKZnwV80TZC7hP79Se48 wJGbqRDka5dcbSe3XkFl OSFePUH5qGkmZZxad8Dx YFHqG84kfJTiz4W9 IGNvbGxhcHNlOyBlbXB0 eL4nKIrfuovhl8aawjji Brc1am02lQTbo4N5nYQ3 N6RkhsX9GZPejOQn GihxxUAIjE7cuqejr4rq fmenMkUzEAVzVRx7XSy3 PMCksLlxOfRlWH63BVM0 ETImlfCaD8FeVJYb nKckGnK2b3B6Gp8EI7GF XwveF6YDAQKTPSsdhMD+ NL43lu51L7YwTwykEga3 WERoZBB4sYN3pI1f FNXoZYzvh8T8eBT8O7Cu swMvct7sf2teALHpMDwy N93dhVQuq3N7IPMobAX5 IRSyiQhxWpXycQ01 Oyc+MZThnBheb6GeGgia p7pzz5wdoSj1EbybXRMf gwEvwOclXBZ7e2SjYr9x LRYqaZJ6eEO6bI8a NlEfUnJ1AQcbO104JbIt hLSyFpsjF26cN7TbyKA+ IUFnLww9CINvaGcgUK2i V1MaRAVfilfksKKc fIcuLB6uAJZkyrcnMXHp pK2nBDTqA5y9GyEdCgU4 JWxsN3FpQWPzfssmMl21 cL7jCeVlWlU9CBow O2QboyW3DORqlTYzTLlf IAX2Z23sc6Z3LXPoPLIu CXV3bPB0gT8vfEwmbbfp bGVmdDsgdmVydGlj MNouBKyrX066YYPzaMeb PkNvZGluZyBEYXRlOiAg MDgvMjEvMjAyMzwvdGQ+ WVYmRUD0oBvmYTBv fXIeOXkqWp6btPcotQgc HD0rFQOpchmrYLGlqQ7l GMAiaQAizCgzAZ0pHTSc tdvfx041KcZbNNM3 KYWtlAYcN0QvuK0pYyVc HYIvJXHeB0WbjAViGAxr H482TOkpBgK3EZJqgeVx I4AhXKDleDrrZqF3 w9S8Vd7Qi5KtkilqU3Bc gKEdNgOgJxywJTb5T3Mo PjwvdHI+WH67GXSqKE16 XNo7GZI9kTarCTnq WOKgK0CtzP9nEaXbKQOk ZGRkOyc+PHRhYmxlIHdp ZHRoPScxMDAlJyBzdHls MY9dQp5vILQpXKYn xSnnrXBrJdJwa7npXYZe TIkfJI8cjYfeI9IqzBB8 AUVkb3o3Mi36L70wH7Ec dXA+YOZytQV1tJC1 nF6xOiGmReO7QGlsX274 NiWtaLMgOerlp4tww8lm uFf4FcI3OCDlhfFjwJyt QHU7r6MiOz57F52a IHdpZHRoPSIxNSUiIHZh tDoqdc1qkI1uRp0+PGNv vQA2jOR6vB6lKoWxRcI3 ZBacO999NmJzyXZf Ljnog0kle5oqnIy5UwEl OIMomsNmuHzbUFX6c2Ph Kw77A2KkwMipo8ElKyi6 sg11dYXrh0U2oWF2 I5AtGCThtubvhAViaVif QK8eQGGsbsmuESSuwN4a GRZhG5n5JkDwCvO4UAtz T4IwjjQ0PQRqqQMc OCLwmOTHmB3uhkosp4sw pgqiRtTsQDTlKOf4SLn9 TTJizGurJtHjXXW7ArR4 AGJ3mOCdrY3huBbc meyezN8gYwa+EXD5bKOc iIDHET3nJuezfWP+PHRk WAH5mQwiHDjaDYKuiP9m VRZuT6l4SjNyOjP0 PBhaZ8SbpaM1XAVcsNKa UXYwzTLCaG3gccngn5fw aptaNoRgSUSeJHl7HJw1 LWFsaWduOiBsZWZ0 SnV1DDY0xNRfeI7gxWce rrkykY7aDas+QmlydGgg LUB7BDo6V1NsObo6XCIn aChgSM5nuNIxLSoh Ch7duNrmhAykGB5bZMUr wnhfh032ByCqp9jbJVXs jFBoFUsdTCL2T62ko1I9 FGJgAZDwIXK1bWY4 xA7nmJwbsimcoUSdnNcd qdVdwLrrVMlyKMxdH637 HBJclQacJuFxGDw9V2Er Mvu1ZVPkkGtdGT6c fPHdVZfnNk1veFytvRbx XA3bSWMytukis385TkAq h3neSHOmzUZuWKjrXOX5 G93wb3B3FJDmTJHh JQS6hAV6wX6lgThrwbmx bGVmdDsgdmVydGljYWwt IKhfV192MCFutEyxXtRc zCh5J3EjXnl4LHZn sKbkVT2llLBhWXrdGq7s jZhjoEwmMG9tONVvccpb r386MzJap4bhZWEexUEr XOmyVPT0H25rw8P4 UGNhZDVfKIS6qJD6iI8i bGlnbjogbGVmdDsgdmVy kJnqNQkaYOnyH088TPAt cDsnPlBhdGllbnQg EQxySDj3R7GgYgksgKW+ ZF26OZJcYW25eFHezTDy a6ednKn7GeWnIHJlGKE9 xSqgTQvme1KbOOLu N75gdKBom1W6YKRlfApq eNQjTdIfqHP6xI1eUKpg xpyyx7epcskcHltai2mx rp99vX54C90cNQqt ZHRoPSIzMCUiIHZhbGln wi8zqO4gOh8+PGNvbCB3 gBL6dU4bEOQdEnE1WRla O489WcSktGMpQgsw w0uuo2ukvRc6IgA5JAJt gjHcuMdcIZK5o8GjPh69 Q07sSTagRLJhBYKfXBEz QSZcfAkwyp6bwV2v Ii8+YUThwWI1zKZ9uB3s RjCwUgY4TTmbB520VuKu lGJjHbrvK84kU3CutHY+ WBHuCtk8SKKgtGzg SV0ivCFgAUadGq4gFGB2 QgKfIbNwMDvrL9MqBIDl xgrmaxczbZK4YAHoEQQl aO46Nb6yuBtqYLTl iALHtQ1tzfajr0srhwdq XhFaACIgIOl4XEu3QAVl vYhjUyAyOWT1CwD7DCH9 oKLhtW2onEyndmvm rI7rE2AmISWmampwZu28 qR1jKgNlXmP0ZHhdFrt+ K2aDDgKDVYeaE3yAHNOZ DCuIWJ1JIBrbgTU+ WIUzKUP2eTryHDwxYRKd kP7eSAOcB8j1HhNtShK5 PZwfG8CeTOYgilryIz41 wI9qLcQpAgI0DZcf V7WojlX5ZUIyhFQbLYmz JIX4Q97oe4E6DARlICKs JZN5wRA9lK4idVnhpbsu bGVmdDsgdmVydGlj HKgjJRnjP810WDMmfXws XmH8ZwKuDjKhQXT8R0Lt Qru6BAQdvQobRO8meDYb EXnfTt8sjLczzFlw JK5xSJMfjogfAUZdeZ2h FIJasHVtpCqsPS6yAMJk iiqps080OmDyNDO5LRHi qOXqY4DjpZ8zBuLo AITrZIOoU2ZzjWRiKBdv N280BJdfLpZ2TPWzgyLj B4XrXQWoaMsxCmX3v0O2 Pt8dWONXVAWycfkp dGQ+SROqXRD3mAxwZObi EDHreO1wIAGrL4y5TgCf VvI3VYpzO0KyHHIdcimo Js99oG3kVtYaDbN8 VCbkC4NnvpA7BMWelWFk BJbkELX4P85ur2U3WIKl LDWhFIT5pVG9sQ6kcSaj bjogbGVmdDsgdmVy jAikPEenWNkxT959IFGx cDsnPkZFTUFMRTwvdGQ+ NCRgTCJ6aLosWQewPVMg sR7zLQUcW8w0EpPu TlA1DWnxY8FcLCQahrpx Lt52xK1yPaBeZsC3WEot U1AellP1OBJpwUSjBKxh YQT5A43tz1H0XWBv IVWzUUT1gGZ7eG4rzFte bjogbGVmdDsgdmVydGlj RNihKPveT701YEWjwBoj ZvAxKDWfMN6qjUru dGQ+QF19lh22S8UjDmyp Lag0BSAzOLE4hZA5yG8e MNMkPRvfh9V9uZK0B0Wo ciYlnr6qs7ggYCDb YJxgL10iqHVcu3X1WEQr bXU5GDDheKkjXxLkiZ13 Oyc+MUIqnHkao7VrQuuo e2vjr7wdoSf9AcDb ZZSrawAnwWhaKNG3m9Po Gs55A90lYTvkXAMjPBBv OJHwDLYcmTwyom8aeZ8r Ii8+MCPpsGA2yGF7 mH7dRsUhIaG2SOfxG932 WcQjaKNaNxcvm3mhc1ns uEr3VpAfOJEoazBddPvl EZS0p6GfKw14G0Rj fOlzm9ThOwy6mc47rQVh a7H6jGW9W4TkMDVgcgkg cZOmvXctDW4fAZAatnzc DPYzjV6yBAXmA7k1 RzJmAwT4CZiyD3SsciM5 ABApqNLpMLKnqADHeQ2g vankl1imcfepXfTcBEHm CWh7ADy1OQUxcJvk SaOvVQV8UtS5XJP3bDKb fQ1fdSbhurondK0bZxv+ ZUd1z8xgyKRaDV5zeVL7 TI37DN82kYKep4P2 uHP3V2NrVXUhbcyrjpcg lGS7VJQjDLLyhL92Pc6d wTxeQs0bKHIqGYU6UFHk wOOiQ0XnxX5mNwCq WZMiFWNqZ5PhaLRzHXox L811VJrpLzK7OORkbiQf G4SnUIQvtWduZdI3n2G3 Tp0QVR63KR58ZR62 oYHbq6D6dLQ6J0HeZIPm shpdkajytQK0CDQjEYGf lA03Jp6npJkaJw5zYJVd VIQ6SUQxtOLbA2Mw uR3hMrQlFIQvOBTsP3Nk vRYtCBaqC020OJinHjQ1 UQNrdxUnC0JdXYHelIhl MvL1h6J7Ah5RSn98 VW11KV23qQEzc2D0jDE3 F4OwTAMbvoinudrvkDF8 AYZjPXZauM69Md7bgTix Nz0hSKYoCRJ4BYYn bFOrC2VpsZ8kWkIaSWPm UMAyJ8NhcFNlALfnZ483 BTxcOpN1MVTunuUyL3Ww TOModQcmOgA6a3S2 Sd4DWCmgwum7F9ScCxmm dHI+WK76PJAzLY48dNYy iCZfx9kzwEe4AjCnONFh CQC7iNccTXnzv8Vw ZXI (more content not included)... Normal [facility] ED Clinical Summaryon [address] [facility] - Emergency Department [address] [place] [address] ED Clinical Summary PERSON INFORMATION Name: LIA DESAI Age: 22 Years Sex: FEMALE : 2000 MRN: Acct#: Visit Reason: Hip pain; LEFT HIP PAIN Arrival: 11/15/2022 16:28:10 Discharge: 11/15/2022 17:02:00 LOS: 000 00:34 Check In: 11/15/2022 16:28:10 Checkout:11/15/2022 17:02:00 Address: [address] [address] PCP: Provider, None PROVIDER INFORMATION Provider Role Assigned Unassigned Anusha Palomo CNP ED PA 11/15/2022 16:30:26 Jayne Zuñiga HEAVY TRUCK TECHNICIAN Nurse 11/15/2022 16:32:34 VITALS INFORMATION Vital Sign [...] verbalizes understanding of instructions given Comment: Normal [facility] ED Patient Summaryon [address] [facility] - Emergency Department [address] [place] [address] PATIENT DISCHARGE INSTRUCTIONS Patient Information Name: LIA DESAI Age: 22 Years Date of : 2000 Reason For Visit: Hip pain; LEFT HIP PAIN Arrival Time: 11/15/2022 16:28:10 Primary Care Physician: Provider, None Attending Physician: Bennie Yarbrough DO Comment: Visit Diagnosis: Diagnoses This Visit Hip pain ([id number]) Sciatica of left side (M54.32) The Pharmacy at [facility] is open Saturday through Saturday from [...] alcohol and/or drug addiction problems; contact the [facility] 29/10 Crisis Hotline -Text 8PIPZ jw 833884. If you received any narcotics, sedation, or [...] and treatment you received today in the [facility] Emergency Department were for an urgent problem and are not intended as complete care. It is important for you to follow up with a doctor, nurse practitioner, or physician?s radiology assistant for ongoing care. If your symptoms [...] so we can reach you if necessary. [facility] Emergency Department has provided you with a complete list of medications post discharge. Please inform your core drill operator/provider of your visit and for further instruction on these medications. Any specific questions regarding your chronic medications and dosages should be discussed with your primary care physician(s) and/or pharmacist. Medications That Were Updated - Follow Below Instructions [facility] [address], [place] [id number], [phone] Updated: predniSONE (predniSONE 20 mg oral tablet) [...] away (more content not included)... [facility] Progress Note - Nurseon 11-06 Progress Note - Nurse Patient walks to room 6. Patient is alert and oriented. Patient is here for left hip pain. Patient states Saturday she was in the shower and bent over and pain started to come about. Patient stated she had difficulty getting out of the shower. Patient has bilateral low back pain. Patient was seen at [facility] on Saturday and was diagnosed with sciatica. Patient is to see her PCP next Saturday. Patient was prescribed Flexeril and Naproxen. [Electronically Signed on: 11/15/2022 16:49 EDT] DevaughnkhadarJuly DANIELLE [Verified on: 11/15/2022 16:49 EDT] Zara July DANIELLE [facility] Coding Summaryon 08-28-2022 Coding Summary HTMLBase 64 XfisjaseJSl1hYr+PGhl YWQ+CN3LYMLaZ22unKQs sY4kH5IAEWeMBqijNGSO XBiICyZnarPdXM1xmHUn ZXJu IC8+GA2oIKIuMqlxtTLh j9R2bFL8W43gkw5cDVrh bVR3EITuAlZlahupk5vz qPh8CPicLkccVvAj NDYthF42OLC7sL56Lw23 uPZheWNee3yrrZo7BsEt DELcAHY4kUcfWHgya3Cs RADvD12xoWOfs5R3 IGNvbGxhcHNlOyBlbXB0 tD6pEXcdclxwp3lfruuz Whw9xi67wHCxo7B6qEC3 M1XmppX1PZRfbZRp DnyabCTWfL0yhpcrc7ei grvdXkXfHTMdBJk8EZk5 EWWmkOhvTmDiQM71OWZ5 TLOdcrNjZ0YuAJIt rFdcTqN1g2J8Gm1BR8HT TqjxG0MCIBMTZWoitJW+ WT67hz30I1OvCfmaUxy1 DBAtDGB0bYD6rH0e LZMeWWpqq3N8aNM3Q0Rx ykTdxg1lo1zhNAHcVKgp T47izJMmq2D2LCBdrCI2 XWKraGdmGaEahZ87 Oyc+TLBsoGkef5ZsFhdu s7oxa6whoAb8VrwtOMNu mlZodWbdLKY3t9IaIz6j HUGszFP1tNZ1hE0x NtCpSuE4PJixI523RnEv uDWtCrceW14wH9CdfZL+ EQFqZht9XDDjcNvwIJ2r E4IhUPPfoztbkXKe eMnjIL7iNJBncgzlXKMr iK4wVXFeO9z7BgMwOkG8 OQwuN8CdQOAofgqbJg74 qC0jFkQbRmA7EDjw N6TwgqZ5BQUwvMLzPLtk YML5K00xp2D4JVGwOKKo EQN0fLC9eQ7aeEwdwggc bGVmdDsgdmVydGlj JYkwLCorI507LDUdvYyl PkNvZGluZyBEYXRlOiAg MDUvMjMvMjAyMzwvdGQ+ XNUlXEK5xJkeIWRd hSJxXCboGp9eiFscbTth AK9uMIRfggwpZOIwuC8a SFEszBMfeXwrTU5cMXHk vmkeo309SwKdJID1 OPOyuEEyQ4UevQ0wMbIf FOXbAVQeW9NzmHUwKMjl R761OHbxYbO2MPYvzdYe E3LpAAKjeZjlIyN3 q7X0Sl4Yp4WwdzhfL7Vi uYRbBsPtQtpgNXf6E2Cs PjwvdHI+ZU30TRAtWN69 EFh5ZOZ1pOrlXPkj JKWyT5DdkF1gFcZpLNYb ZGRkOyc+PHRhYmxlIHdp ZHRoPScxMDAlJyBzdHls JA7zDl0yEQPcOBHp bEgnlEBrRtLqr9xsRTLd PFmrEL7pmCrfI1VavSE5 SQKax3u7Wd25V86iY5On dXA+URIyeXH2dQN9 vR9yKjNkPrA3ERtdT288 GnFktQCtIptbw2ztp4qm oEu3LoX5KWUbkyLrdDjx QZJ6g5SjSs58H73r IHdpZHRoPSIxNSUiIHZh uQshpl7grJ4sWw7+PGNv zMN6aSB1zQ9pKlXeRxT7 GXvjM340WdCkvRBt Hrgep0yxd2jqhRa5DeEi XRZwidMguSwcFFU8x7Mf Aa81Y9OjpBayd8DiGam3 pl19qHTuk6Y8cGN5 L5LnKQAmhvxlgMDodQaa EM0wFTJrvzduZQTliG4q WGZtH1g7YxAyZsT1KCbf P5KxluG5VXVcgGLl ZNHrtQKJiN7nkncct4rv hugwViWvFCCxPEf8RHk8 MNVfjIspUpWuTFX6UuD7 XFK3aOJsgY9dpQhs nkxukY4mKvj+WEM3bNLf iYAIOY4wUsuwaTO+PHRk GLD6kBmcTLdyKWCfbA5r RYSmY1k4HzBnBtH3 HZgkI4AlgpG9NEMdgOWc NUAkeXMBeT8owmckr1vo zmjkBuTvNGHfKRk0HIh0 LWFsaWduOiBsZWZ0 GjA0VEE8aOFkzY2qfNab atcjaT2yZju+QmlydGgg RSZ4UKq0U8BkNru5RAXa pHrgTC7neXKmBRye Za4iyEtxkUimJS1yNSCq pcpwu667NtQct4zmKRQc vNJuSNrtUZX6Z21ej2R9 KSEvORVaTZV8uZB0 yI9diPfnnvaftWIncJrb cwVqrDjuFKmbPFkmR338 QMGdfEhhDhGfDPx9E3Mk Qfs4UCHmiVrcLB4v xNKeMCzeCh9asQfhcYfs VH5bJMNeoezqs962XhHj r8kcYPFqgJQrEXcfJUF1 E75xa4M8ONAqANCm UUP4zXH2rI3grVkxfqwc bGVmdDsgdmVydGljYWwt BHjyA466XFXtjKwhIkNf mQe9Y4RjVwb0KSIl tMxtNA0qsWHbVGlvEg0r wDwfjVqnCJ1gMLIerxei g520MoXoz0pmLJJtsUSs KUvmUFU1R82dp1U1 ZWCkOJGoUOR5iUR6aB2p bGlnbjogbGVmdDsgdmVy hEjgDJihPUuwL069GMHt cDsnPlBhdGllbnQg PDflHGt5X2NiXhklpWU+ TW22OFAwEE44pCTxlMFm d6jrcHj6TgEqYNFsJMB7 tHzyTMyqn7NfRFCo A28viNAtc4C2JDXqmOay dDYzVvBoaUF5qM4pNQjk bgczi7dgzozpSehgv7da ey21rT98X51tSMzt ZHRoPSIzMCUiIHZhbGln hd8diG7kXk8+PGNvbCB3 oZS4tC9nECKoHbU4DUiq P140PeBxzPOyNodf a2jzc8gdfWy5JgV8GUZb edRvjBgnHGF0u7LeLe92 K96jTOovFCGzMVKoDIGd EICgjZjrxw1cvA2s Ii8+LESibPB7gXP5gY1q HdBlItY6JYazZ890OnDm tCVvRgfvV33qQ7BpwHT+ KEYlMuk3SEStcPak JD1nfFAyBCebEj5hLIV9 DvKxIeDxJSmpZ2UnPOIy ojworlppwBS9XBItSRZy fI70Zz0krCsnOJVw gZTWkQ0oxfqog8yinzqq DeJqDEPyNFc1BIj7WCWu lOcdGzCnARF3TdC0DOL4 uGTwbV4zyCeoaqei nS0aS3TnTFCokrzhPq20 iE9yHnQmFbD5QWguDbe+ G9rRThXSCHozF0qSZWJA LFmLYM9MFDqqdTR+ DQWlUCE9oWdgGRzvQJQg hE1oDJEfB0v9KtHgDaI0 WFopM8FvKPAcgzygWb86 hG3bIkKsOiZ9ZEee E1DqoiU9ESWoeMPhKAbn DCR9L72au4A3SEGkHZZl FTK6sYS1sO5ndOqbmtox bGVmdDsgdmVydGlj BCaqZHyyW755LGTmfTuk CtQ1RnKcRbCoSZZ4K7Tx Qid3HHFeeKyhZE6ulRQb TXxoIw2paUoajQwd DC6oMKDkdakwDQNazN4j IJSbkHAznApvZP8yOPOk vsvnp923HaUbTXF4UQYp dKDkK2KukC4pInSr TUVoERZjM7EvuSRbOZkg O710VXrkKyT3VEHfkyCd L9JoSMExoWbmNvO9k6M2 Ez0fNVNXSJMjyrhj dGQ+YSHbCUW8hNehLRyd UTXvdJ9gQTBvV3t7EcFd TbL3GJujY8KmMUTsfaap Or33aN7fKsFrOzC2 FOauG6TtdbR6HLQzcYFp EFgoRDA0K79fq1Y9NCAh PBNyOPE0qDT8pF6svHtn bjogbGVmdDsgdmVy hLawRGrhMTdzO247EHAo cDsnPkZFTUFMRTwvdGQ+ CTZkESL9wXjhIJmxMOGz mD4vDKSwV2a8JfGg BrU1WHgcG2UpZOJlojyl Vt64tP1xMdPgDhR1AAdy N5EyyrS2CBTxwIEuIWno TWR8Z65wm5S0AWAm YIZoNQM8zBM5nP4ngFde bjogbGVmdDsgdmVydGlj DUdhUPhjT649ZCIolFps Cx6XXP29ER84M2Nh PjwvdGFibGU+PHRhYmxl IHdpZHRoPScxMDAlJyBz cBkbYR3mWf5qTXUzTGPh xOhqdWGnXkPko5ar QYXoNBgcMX5gmWhsR9Dj oYL4GJUaq1t0Kb75I89l D4VksII+DDIydQO3hCA8 wF4uEnPuWeR0UOfn X339SoKrpLYyXzlif6ws f2gskDy4PhNxRPHconSy gTyeZOV7n6LtNx65E25p IHdpZHRoPSIyMCUi WYNclKdxmr2moI7wIa4+ UIGxpAG7iDM0oL8dEyGt EvL2KYavH346RvHxwWPj TzkjS32cT3TwjXY+ AAUpBmu6GZZkcZyeET9w oHJyWJwrBb8zGQV4ZxEa UwZeGYrdX4VnIJIcadud kfuqgUL7KRXwRYNs mB48Sk5xcVuqSu8gLGHy ESK5SDBhfDOoX1PrsV9v TuHxTBXoFQXfF0XtaGSa LQnaN360YUozAdN4 PABnkvThK0DgNVQrqBja JxJ4f9K3Vh8YvWdguMFk WV1uFhYwMTw6K8WnRhr2 PNXdfMfbOL3ngYQr TXqnNl3muIunvIqtPB2z XVQbyfsbj296YyXdr0qx ISUqxFKuVVsjWLN2Q87u r3R2QAFhYZSqDTJ6 fWS9jU0mbLtmjofywAIg dDsgdmVydGljYWwtYWxp V917CCJopWvtHfEIAbd9 L4CxQox7EKMyiQyd CP7ejXPnNPlmYv2owLye wGypUQ7cWCCjgvjkc622 NyJzq6unVPBmuTGmNWbl YBC0Q96jt3M5AWRq IMNcHGQ3eXV9uJ9aaDiy bjogbGVmdDsgdmVydGlj RGeiPPdcU043HCFijNul Do8FZvj2K2BmLuu4 CPWkwNnzBW6eqLGkJJgp Li3qvTqbhDndOA4fABJt rajoh906TuBqk2saNRWt dWHzBRluBCP6T16p v5B9USPyZSHuMJL1jYZ0 eM3knHqlflntkXSydRel mdOluQtaLCsdJUigN256 IHRvcDsnPlBheWVy OjwvdGQ+FQ78rx40H8Sj ZpzvXqf2KQEqMXC0nEN1 uD4bCIRpXLfxn7W5yKR1 L8EagiFdex6ry0yu YXB (more content not included)... [facility] Physical Therapy Noteon 05- Physical Therapy Note [id number] #1.00OTGTIFF Normal [facility] hCG Quantitativeon hCG Quantitative 3.0 mIU/mL High 0.0-0.6 [facility] Comment on above: Result Comment: Post -Menopausal Reference Range is: 0.1-11.6 mIU/mL Performed By: #### 7 [id number] ####[facility] (DEFAULT)[address] [place] [address] Coding Summaryon 08-16-2022 Coding Summary HTMLBase 64 JttixzxyTSb2hQc+PGhl YWQ+LT3MWOGcY39gbZYw vY9YE8qKSX9KIPMGXRMS YW1GVG2dwJN6SCirB5Jd biAv WlhmpBQaEH92RUs7ECN9 eAwcDVxlxP3eiQYeY5n3 WcEoLK95jR22RIvpJIPe OxM5MkRwsetbiSLz U7gxPdXjpGHtAnn+PHRh YmxlIHdpZHRoPScxMDAl LoBvbPeuTI0hXz8uCNDd LWNvbGxhcHNlOiBj a8htZTLlQVgiSA2utVof E5QzvRY0WAFwv7v2Kq70 dHI+NKNfTIG0bQikMIgn z772ErOrm3fpCQB2 vZJcMGotDZA0L94vi6T5 CTKbMVPvLLF5lFX0tE8z qHdofwwcG2XmxZDrSfH5 XZB4iNBvlR1tkKtt escnnA8yYlq+B49NLC2T EYJFMD8SIny3A1ZePbuw dHI+QR18HEIaGT71gELj pWFya9nxdBn4NkQm JAHfRJX4rNxzITgyk2Vc TBPoK35ywCTny2P2HGHo xLckcLKhQiAbqVU3wN5d QBbolwzit4jmppjt Quzpu9nsxq54lS18R51r UIznVNNsBUR6JKFjMDGs xOlfap0raU3oZc5+IDxj l8gst7vzlUm7KkYa TRWdydSgcZzjQMS7w2Hr Sl55B6IyaTnlz0AsPkw5 tt22cGGhf3T8tLU6GNgo UYBqyG7fFIdtCvL2 RHKuIyRogR45nUZpAWfu Jv0fqCfcyMtmND5xZODm xldbMHKatE0eWNTaiFNg dXrgYO5rDGCxzqeo t497AjQrCGF6NVLghYWv Q6ZcnK8tLwKuHCUjWOIu E8MjmXMkOCxqI391EYfe WiM2IUIbiwFlS9Uw ETGgqUwaUpE7z5C1Nt3R h2PouxzwXXO5DBvdFDW4 FuBiWcNtHlN9B9ZxZse8 KMBrmMzuUG6jM8Io GMCeqiwfbvsknEX3SVKu PYMybU88dIXqKVkkLv2t v8V2g349IXPeHFFugS71 Kx1rcNdjJKHkxBWA hM0rynala1oxqkdjHxZj LFArXKc1HWi1BKWefOmo DmSrAEM8QbB1AAA1jYNq fV1lcRfsjkdoqQ5k Oyc+J67vuG5wOHN5BLU3 szxgVNYkqaVhRY78YG13 K4TgMtjecZJvxST+PGRp hwLqrYlxPP9eZiSx m8tus9XkLBjrU0ZrEABj DSxlLcd6IXUpVCN9uWU2 lX4hNCFwBGggi8L7aGW9 U4NajbLbvr6ce1rn UOOmXRzlO54nqUSrg0G0 VPMjyPM9DUPzdCtoLnIu eQ31Eii+MLTmsLcsn1He Thzsc1okn8nskQd8 IjMwJSIgdmFsaWduPSJ0 p3BkHt14C51eOEwpXHEj PPEaMVSnKSGrnSzgxk8k mA2tBq1+PGNvbCB3 rRU5qT9xCWQqHnQ3UPcj L983WiGsoHDhBtkuh8ic m3bqgFd1ClLnFFSctrTj pEtbQOI8d6LeHh62 I71tPGylDHQcWWFzSAEl SDXuvPpfsm2utZ8xXq9+ JZ5mf4kywf92dE58aZP+ MZMbINB6bWkwVYjp BTKmrS8bNJscQkE0NMPp JiAcjX15lYBcKLvaSk3w yVflkOxqYF9dCWWnphmv g232HgIwq5vbQKKr tZHgHLkuZUR9U84dr1R4 DWQtVQDjJTY3jHC5vU9u bGlnbjogbGVmdDsgdmVy qSmxKDgeVWnsZ229 IHRvcDsnPlBhdGllbnQg WwIqOZm0M4OmFqy2WHCc aLfsGY8joPZqCSmzIu0h bMvrxPnwOF5mNFNt nmtmh012AgDlh5cxBTTd eFWhNFkbYJP7M79zz8N3 ZJAeDWHgTUP5fLJ2nY5q bGlnbjogbGVmdDsg opFbaGgeNOawEZfiL491 IHRvcDsnPkJpcnRoIERh mTL6BA52AW03qMNcd5A7 qQM1M7McEPLfelpy fbtauLW6NDEfOBXwnU87 Du7inEibZg6tFMTcRFQ8 YSAznDLqD6AwgN0sRpWa TZDyXPSeZ5QosZNr FQjpO705CGkhHuM6CCHg sdIyQ3KxPSGtuOgoUbQ8 i5A5Ym1BO3O9ZX74PL73 gKBzf0I6jBN1L8Kp LTLekhscrlbftNI7WNTt BVQcwY64Re0arEcfRd2v ORUvAPO4QRCvnJDsU8Bt rJ6lMcEdSTAsWMMi D8NgwRQbSWdeS736WKgn NuN4CNEzizIxH4SeCHHn oHeqDlH0q4H0Wh6YZLk7 DK93FS10rOYiw3W0 iKD2U8OiHINnyptfhsqs rUN8SPQbUZRgaN25Vo2n aJgwMz2kMEZlLSI4LXUw vYUjU8XvzE2hRyUq LKImWJRuE3XsxNBqGDza L845JTyuHbS5NTRqyuXu A5QiXMFbuLeuMiJ6a7G9 Wg9ITBJhBS56CBN7 tOO8KT08WV88T7KpQcmx dGFibGU+PHRhYmxlIHdp ZHRoPScxMDAlJyBzdHls BO4eEy2vRLSaPEEa sQouvZQrYpRmy1isNSYf PFwrAF7jxLzmE1LnpYI5 JBTxh6d3Cl38Z87hE9Uh dXA+FXTjbOS3rBQ2 xL8xKcIzOsV1NAioH141 CgAjbOKeWqprc1obq7ub eSa2KwS5GUZwelTpxMlk ATY1a7KeRp79X12n IHdpZHRoPSIxNSUiIHZh eLncog9njA7wTg9+PGNv rXB6pQH9gT0eJxRlLiR1 QKdkF206IkPtlALj Zecsl6aef4znxTm4EnFs ZJReboCzfQkbVML8d8Bg Gq46F2WjpZfvz9PzRoj2 vn40qWYio4J2hOZ3 T6TvMKIvgnlguQIkqEay SG6gXALqmuyrFLHyaZ3w UBVrV2l8SrVoWfX7HJck U5QjydS7HYNhpFOm ZUxbHNO5Z67xv4P5ESNo LHGsEUM0gMQ7nK2gaFqh bjogbGVmdDsgdmVydGlj PLfeIRppB216LIEc bMvuASLkxM7wFSIwnIEm bRevAZ2pMRPxqymtSnwO TEJFUlQsIFNIRUxCWSBM IQBJSaF9T9AgCuz7 AYPrpAcgSV5wzXRhBEil Vq4ovAoolYeoVI6lNORi ygfdDQNljQ0vFWLdsMIn kPlbJN5iXNUcutja i664JfHaUKX5IOYulTBw P6EpvX3wMmWuSTDwAJLt I2MgfRNyRGgjX812MCmc VpK3VLEknwNmT9Ft RCGyyMbcLyH4h0C0Ff5k Wr9hZs4hHFXoGB13YD39 aLDga2U7zAE1F4PvKBXt racfcydvzAX0VMIs GHYriX47mBDnWStmBn1u v6Y2k835DUVrGRUxnS54 Fa6siUroBPNdpPTPqI2t uvtkh5zuydypSlKb BLKtYXo8YSp5IVIwxIno VfCqJUT2UqT6RWC2vSLb dP6eiCarinvojX7jGlh+ TvMnIEKktcI0R0Mu Mqm8UPWnnYcxWN6scJQb OOecRa1gcItxhRhvSE8y BSNcqbygOFComU7pFMXi jFSptGfbEC2wAQGy xxewm981ZtYiYHV5HNSu oHAfC3FudE7bFuIvFVDx WDTkT0AlrKYxPJiqS653 BQasSyI1AQQkfgKn U9WsPNFmsWduDiY3i4N5 Yt8GBO1PAAX5N6SdAfi8 VFNddXrvZP5ezOKqAEch Dq2ljHecjTmtJR7h WEEwhgobNSRflE3sVSJr oTIxwFtiQD4vYSVcaezq r611KuRyNNJ0BYAsoUNo A7BaqB7eOdBaSMAk SRKuX6VvrIKnTXbeJ126 IMttEpA8JJIsmqZfG9Wi IZGitRofLqZ8k6Y4Dg8R cUNmB8UgO9z9B3Pg PjwvdHI+MO01CVPqWZ03 aUVbtPZcs0twdIv4CqKm AQVgIOI0bWkyYTfkv5Gt WGJbK34jsFRty2E0 IGNvbGxhcHNlOyBlbXB0 oK6qINdjbpqib1thmhss Kzmab1rqfj16rN11P63f IHdpZHRoPSIzMCUi EAYbuHtbrq8crF3mNd2+ EALzaGI5gAR2kZ3aAuIl IpX8GJssN534VrYlmZFj Nrjbp3bjl0azgEn5 IjIwJSIgdmFsaWduPSJ0 n2XkMr66G33aWEcaAYQv WXGnVDAyZDXgdSbzfp4u zN0yHb9+MP4rm8yo lr75yR05fKH+PHRkIHN0 zLzaXIddJXUozT1kUAvo DcK9QSAaTyGkmP18wPSz DTgfWd4myCuznYrp DG2kTMNwkeywm191GxUx u5kjBYRbkCQhVTqpOPR6 C75ds7A5PEQeZINxKYZ3 jJG7nB2mpMemfglh bGVmdDsgdmVydGljYWwt RQumT058GEBwnYjtWdTo zNLqB8mcifENPZ2vUaux dGQ+GOUvCLV4bUsk EHnrKQHysL4oSCNoK1a7 DeCyWuL3PMbxM7AcdrH2 XDZsaIHnDLCqnLBJoY8q ymdpx2adbiovNtIo EGIzJNa4IJf8DNSnnEun WzDtNQQ8NyA8QXO0aNVf hQ0ydGxfrduvcR3xMhh+ RklOOjwvdGQ+PHRk BRK5dLgrCUfdBTTuvT7s ENRiD7y4JmAlFyR3INow Z0TigfE7WXOimUMaDYQs rBAAsS4rfovqs1sy sswrIxSuCGOhTRk7JEe6 BKPgjBofHoBtHJA2OfU3 QLG6rVHeqE8pnLqjlzxc nD4nEfu+TVJOOjwv dGQ+WVMmBUH1mCkpKEgc BEHteY1uCIEqW7b7ExUy VpO6PAviJ6SlepT7BUTv xYBcYTSetITFjF5h sewws7fqpobiFhQsZWDc DJn8QTa9UMBlrCzuRzDa HSE6DfF7UUC9vQUuuA8t bKnzpctfxQ4uBui+ QZE9KFR0PA27QW39S7If PjwvdGFibGU+PHRhYmxl IHdpZHRoPScxMDAlJyBz bHvmKS5wFt8eOGKg LWN (more content not included)... Normal [facility] .Auto Diff 08-11-2022 Auto Mccone % 7 % Normal 12 [facility] Comment on above: Performed By: #### 1 [id number], [id number], 3649410, 4299105, 13253199 ####[facility] (DEFAULT)[address] [place] [address] Baso Abs# 0.1 x10 Normal 0.0-0.2 [facility] Comment on above: Performed By: #### 1 [id number], 1796881362, 1118566, 1147225, 05162450 ####[facility] (DEFAULT)[address] [place] [address] 24914 Basophils/100 WBC (Bld) 0.8 % Normal 0.2-2.0 [facility] Comment on above: Performed By: #### 1 [id number], 7723863279, 2918227, 8021436, 64500965 ####[facility] (DEFAULT)[address] [place] [address] Eos Abs# 0.0 x10 Normal 0.0-0.4 [facility] Comment on above: Performed By: #### 1 [id number], 0539478516, 4324796, 9127712, 10491186 ####[facility] (DEFAULT)[address] [place] [address] Eosinophils/100 WBC (Bld) 0.4 % Low 0.9-4.0 [facility] Comment on above: Performed By: #### 1 [id number], 1557588504, 3395918, 3721730, 76480426 ####[facility] (DEFAULT)[address] [place] [address] 39824 Lymph Abs# 3.0 x10 High 1.3-2.9 [facility] Comment on above: Performed By: #### 1 [id number], 6569038208, 8397869, 7969944, 49200745 ####[facility] (DEFAULT)[address] [place] [address] Lymphocytes/100 WBC (Bld) 25 % Normal 14-48 [facility] Comment on above: Performed By: #### 1 [id number], 9664255362, 0807632, 1396175, 24434302 ####[facility] (DEFAULT)[address] [place] [address] 97260 Mccone Abs# 0.9 x10 High 0.0-0.8 [facility] Comment on above: Performed By: #### 1 [id number], 1377137528, 9067564, 3734849, 10878068 ####[facility] (DEFAULT)[address] [place] [address] 36168 Neut Abs# 8.1 x10 Normal 1.5-9.2 [facility] Comment on above: Performed By: #### 1 [id number], 3505094110, 7910820, 7740938, 58445428 ####[facility] (DEFAULT)[address] [place] [address] 44487 Neutrophils/100 WBC (Bld) 66 % Normal 44-88 [facility] Comment on above: Performed By: #### 1 [id number], 2700361854, 2453244, 8268961, 31752470 ####[facility] (DEFAULT)[address] [place] [address] 89815 BMP Standardon 08-11-2022 eGFR Non AA >[address] [facility] Comment on above: Performed By: #### 1 [id number], 6790111033, 0363250, 6012694, 36212978 ####[facility] (DEFAULT)[address] [place] [address] 79231 eGFR AA >[address] [facility] Comment on above: Performed By: #### 1 [id number], 2609298646, 1787541, 9461959, 02493906 ####[facility] (DEFAULT)[address] [place] [address] 69345 Anion gap [Moles/Vol] 18.5 mmol/L Normal 5.0-19.0 [facility] Comment on above: Performed By: #### 1 [id number], 3897699758, 1249116, 0822068, 13177328 ####[facility] (DEFAULT)[address] [place] [address] 31042 Calcium [Mass/Vol] 8.7 mg/dL Low 8.9-10.3 [facility] Comment on above: Performed By: #### 1 [id number], 6554533295, 2522314, 3962177, 14742958 ####[facility] (DEFAULT)[address] [place] [address] 60161 Chloride [Moles/Vol] 100 mmol/L Low 101-111 [facility] Comment on above: Performed By: #### 1 [id number], 5620690155, 2483698, 1900776, 92130051 ####[facility] (DEFAULT)[address] [place] [address] 47238 CO2 [Moles/Vol] 24 mmol/L Normal 21-32 [facility] Comment on above: Performed By: #### 1 [id number], 7086750681, 7013885, 2805612, 90665665 ####[facility] (DEFAULT)[address] [place] [address] 81274 Creatinine [Mass/Vol] 0.57 mg/dL Low 0.60-1.30 [facility] Comment on above: Performed By: #### 1 [id number], 3866722277, 8401870, 2223112, 34420793 ####[facility] (DEFAULT)[address] [place] [address] 55795 Glucose [Mass/Vol] 98.0 mg/dL Normal 74.0-118.0 [facility] Comment on above: Performed By: #### 1 [id number], 4758151237, 1654065, 1889077, 96369746 ####[facility] (DEFAULT)[address] [place] [address] 73103 Osmolality 274 mOsm/L Invalid Interpretation Code [facility] Comment on above: Performed By: #### 1 [id number], 7032234240, 9527355, 4375681, 76875629 ####[facility] (DEFAULT)[address] [place] [address] 68820 Potassium [Moles/Vol] 4.5 mmol/L Normal 3.6-5.1 [facility] Comment on above: Performed By: #### 1 [id number], 1329977685, 5077611, 3538726, 66854975 ####[facility] (DEFAULT)[address] [place] [address] 85911 Sodium [Moles/Vol] 138.0 mmol/L Normal 136.0-144.0 [facility] Comment on above: Performed By: #### 1 [id number], 2902418599, 4898265, 7814057, 07520294 ####[facility] (DEFAULT)[address] [place] [address] 19326 Urea nitrogen [Mass/Vol] 9 mg/dL Normal 8-26 [facility] Comment on above: Performed By: #### 1 [id number], 1908765514, 0296336, 5214837, 88523285 ####[facility] (DEFAULT)[address] [place] [address] 37815 Urea nitrogen/Creatinine [Mass ratio] 15.7 mg/mg Normal 4.6-16.2 [facility] Comment on above: Performed By: #### 1 [id number], 3337152738, 2317306, 0433095, 60458750 ####[facility] (DEFAULT)[address] [place] [address] 27083 CBC w/ Auto Diffon 3 Erythrocyte distribution width (RBC) [Ratio] 14.1 % Normal 11.5-15.0 [facility] Comment on above: Performed By: #### 1 [id number], 3590013713, 2290664, 3271680, 50057346 ####[facility] (DEFAULT)[address] [place] [address] Hematocrit (Bld) [Volume fraction] 36.8 % Normal 33.7-40.4 [facility] Comment on above: Performed By: #### 1 [id number], 0858680759, 2154741, 6457758, 78187888 ####[facility] (DEFAULT)[address] [place] [address] Hemoglobin (Bld) [Mass/Vol] 12.1 g/dL Normal 11.3-15.9 [facility] Comment on above: Performed By: #### 1 [id number], 0618031812, 3276726, 7062063, 79622577 ####[facility] (DEFAULT)[address] [place] [address] Man Diff? Auto Invalid Interpretation Code [facility] Comment on above: Performed By: #### 1 [id number], 4360544445, 5830287, 8520685, 77383605 ####[facility] (DEFAULT)[address] [place] [address] 79585 MCH (RBC) [Entitic mass] 28 pg Normal 24-34 [facility] Comment on above: Performed By: #### 1 086793743, 4328644768, 6104533, 3503466, 52728481 ####[facility] (DEFAULT)[address] [place] [address] MCHC (RBC) [Mass/Vol] 33 g/dL Normal 26-37 [facility] Comment on above: Performed By: #### 1 [id number], 5024879161, 4913557, 4060926, 15184551 ####[facility] (DEFAULT)[address] [place] [address] MCV (RBC) [Entitic vol] 85 fL Normal 81-100 [facility] Comment on above: Performed By: #### 1 [id number], 7436041447, 7866820, 5178239, 51730146 ####[facility] (DEFAULT)[address] [place] [address] 16529 Platelet 367 x10 Normal 138-427 [facility] Comment on above: Performed By: #### 1 [id number], 5041434241, 6949620, 5388824, 80643410 ####[facility] (DEFAULT)[address] [place] [address] 18728 Platelet mean volume (Bld) [Entitic vol] 8.1 fL Normal 6.3-10.2 [facility] Comment on above: Performed By: #### 1 [id number], 8413424203, 3475755, 7442895, 96052334 ####[facility] (DEFAULT)[address] [place] [address] RBC 4.33 x10 Normal 3.70-5.30 [facility] Comment on above: Performed By: #### 1 [id number], 5914429338, 1419530, 8644087, 48349115 ####[facility] (DEFAULT)[address] [place], [place] [address] WBC 12.2 x10 High 3.5-10.5 [facility] Comment on above: Performed By: #### 1 [id number], 9641164576, 3036799, 5990791, 57596955 ####[facility] (DEFAULT)[address] [place] [address] ED Clinical Summaryon [address] [facility] - Emergency Department [address] [place], [place] [id number] ED Clinical Summary PERSON INFORMATION Name: LIA DESAI Age: 21 Years Sex: FEMALE : 2000 MRN: Acct#: Visit Reason: Vaginal bleeding - < 20 wks ; 7 WEEKS, VAGINAL BLEEDING Arrival: 08/11/2022 12:41:34 Discharge: 08/11/2022 16:30:00 LOS: 000 03:49 Check In: 08/11/2022 12:41:34 Checkout:08/11/2022 16:30:00 Address: [facility][note 3] 04/[address] [address] PCP: Provider, None PROVIDER INFORMATION Provider Role Assigned Unassigned Adamaris Jaeger PA-C ED PA 08/11/2022 12:44:39 Arabella Romano 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 Resolved. Comments: 11/23/2020 CDT 16:07 CDT - SYSTEM Problem added by Rule (IC_COVID19_AUTO_PRO BLEM) following 2019 Novel Coronavirus (CoVID-19), MILY L from Nasopharyngeal Swab collected on 22-NOV-2020 16:44:00 EDT tested positive for COVID-19. no history ([id number]): Resolved. Contact dermatitis (57450093): Resolved.. Surgical history: Tonsillectomy (597242792).. Family history: No family history items have [...] quant draw (more content not included)... Normal [facility] ED Note - Provideron 023 ED [...] Resolved Disease caused by 2019 novel coronavirus ([id number]): Onset on 11/23/2020 at 20 years. Resolved. Comments: 11/23/2020 CDT 16:07 CDT - SYSTEM Problem added by Rule (IC_COVID19_AUTO_PRO BLEM) following 2019 Novel Coronavirus (CoVID-19), MILY L from Nasopharyngeal Swab collected on 22-NOV-2020 16:44:00 EDT tested positive for COVID-19. no history (374042521): Resolved. Contact dermatitis (15678502): Resolved.. Surgical history: Tonsillectomy (200332881).. Family history: No family history items have [...] % Auto Lymph % 25 % Auto Mccone % 7 % Auto Eos % 0.4 % LOW Auto Baso (more content not included)... Normal [facility] ED Note-Nursingon 08-11-2022 ED Note-Nursing Patient walked into the ED with c/o abdominal cramping and bleeding. Patient is 7 weeks . Symptoms started today and cramping is getting worse. Denies taking any medicine for pain. Did have right lower back pain a few days ago. Was 15 weeks in may, had a miscarriage and had to do a D and C. Normal [facility] ED Patient Summaryon [address] [facility] - Emergency Department [address] [place], [place] [address] PATIENT DISCHARGE INSTRUCTIONS Patient Information Name: LIA DESAI Age: 21 Years Date of : 2000 [facility]: [id number] Reason For Visit: Vaginal bleeding - < 20 wks ; 7 WEEKS, VAGINAL BLEEDING Arrival Time: 08/11/2022 12:41:34 Primary Care Physician: Provider, None Attending Physician: Andres Duval Comment: Visit Diagnosis: Diagnoses This Visit Miscarriage (O03.9) Vaginal bleeding - < 20 wks ([id number]) The Pharmacy at [facility] is open Saturday through Saturday from [...] alcohol and/or drug addiction problems; contact the [facility] 29/10 Crisis Hotline -text 4hope [...] sign any legal documents With: Address: 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 It is important for you to follow up with a doctor, nurse practitioner, or physician?s radiology assistant for ongoing care. If your symptoms [...] so we can reach you if necessary. [facility] Emergency Department has provided you with a complete list of medications post discharge. Please inform your core drill operator/provider of your visit and for further instruction [...] may ma (more content not included)... Normal [facility] Extra Redon 08-11-2022 Tube Collected Yes Invalid Interpretation Code [facility] Comment on above: Performed By: #### 1 [id number], 6094986035, 9723285, 4565081, 51439666 ####[facility] (DEFAULT)[address] [place] [address] UA Imrgv1vo 08-11-2022 UA Amorph. Rare [facility] Comment on above: Order Comment: Urina lysis Microscopic order added on by [employer] Rules system. Performed By: #### 1 [id number], [id number] ####[facility] (DEFAULT)[address] [place] [address] UA Bacteria Trace [facility] Comment on above: Order Comment: Urina lysis Microscopic order added on by [employer] Rules system. Performed By: #### 1 [id number], [id number] ####[facility] (DEFAULT)[address] [place] [address] UA Mucous Trace [facility] Comment on above: Order Comment: Urina lysis Microscopic order added on by [employer] Rules system. Performed By: #### 1 [id number], [id number] ####[facility] (DEFAULT)[address] [place] [address] UA RBC 0-2 [facility] Comment on above: Order Comment: Urina lysis Microscopic order added on by [employer] Rules system. Performed By: #### 1 [id number], 77588741 ####[facility] (DEFAULT)[address] [place] [address] UA WBC 0-2 [facility] Comment on above: Order Comment: Urina lysis Microscopic order added on by [employer] Rules system. Performed By: #### 1 [id number], [id number] ####[facility] (DEFAULT)[address] [place] [address] UA w Culture if Ind Standard on 08-11-2022 Breakpoint UA [facility] Comment on above: Performed By: #### 1 [id number], [id number] ####[facility] (DEFAULT)[address] [place] [address] Color (U) Yellow [facility] Comment on above: Performed By: #### 1 [id number], [id number] ####[facility] (DEFAULT)[address] [place] [address] Culture? Not Indicated Invalid Interpretation Code [facility] Comment on above: Result Comment: Resu lt created by rule GL_MAGR_ADD_UA_CULT Result created by rule GL_MAGR_ADD_UA_CULT Result created by rule GL_MAGR_ADD_UA_CULT1 Performed By: #### 1 [id number], [id number] ####[facility] (DEFAULT)[address] [place] [address] 02569 Glucose (U) [Mass/Vol] Negative Normal [facility] Comment on above: Performed By: #### 1 [id number], [id number] ####[facility] (DEFAULT)[address] [place] [address] 74941 Ketones Ql (U) Negative Normal [facility] Comment on above: Performed By: #### 1 [id number], 56869562 ####[facility] (DEFAULT)[address] [place] [address] 36903 Micro? Indicated Invalid Interpretation Code [facility] Comment on above: Result Comment: Resu lt created by rule GL_MAGR_ADD_UA_MICRO Performed By: #### 1 [id number], [id number] ####[facility] (DEFAULT)[address] [place] [address] 58401 UA Bilirubin Negative Normal [facility] Comment on above: Performed By: #### 1 [id number], 59693260 ####[facility] (DEFAULT)[address] [place] [address] 09542 UA Blood MODERATE Abnormal NEGATIVE [facility] Comment on above: Performed By: #### 1 [id number], [id number] ####[facility] (DEFAULT)[address] [place] [address] 86042 UA Clarity CLEAR Normal CLEAR [facility] Comment on above: Performed By: #### 1 [id number], [id number] ####[facility] (DEFAULT)[address] [place] [address] 06502 UA Leuk Est Negative Normal NEGATIVE [facility] Comment on above: Performed By: #### 1 [id number], [id number] ####[facility] (DEFAULT)[address] [place] [address] 26420 UA Nitrite Negative Normal NEGATIVE [facility] Comment on above: Performed By: #### 1 [id number], 79788412 ####[facility] (DEFAULT)[address] [place] [address] 11249 UA pH 7.0 Normal 5-8 [facility] Comment on above: Performed By: #### 1 [id number], [id number] ####[facility] (DEFAULT)[address] [place] [address] 77072 UA Protein Negative Normal NEGATIVE [facility] Comment on above: Performed By: #### 1 [id number], 45610619 ####[facility] (DEFAULT)[address] [place] [address] 66400 UA Spec Grav <=1.005 Normal 1.001-1.035 [facility] Comment on above: Performed By: #### 1 [id number], [id number] ####[facility] (DEFAULT)[address] [place] [address] 51864 UA Urobilinogen 0.2 mg/dL Normal 0.2-1.0 [facility] Comment on above: Performed By: #### 1 [id number], [id number] ####[facility] (DEFAULT)[address] [place] [address] 10006 Urine Source Clean Catch Normal [facility] Comment on above: Performed By: #### 1 [id number], [id number] ####[facility] (DEFAULT)[address] [place] [address] 27206 US 1st Trimesteron 08-11-2022 US 1st Trimester EXAM: US 1st Trimester HISTORY: vaginal bleeding, 7 weeks COMPARISON: 08/08/2022. TECHNIQUE: Ultrasound obstetrical first trimester. FINDINGS: Single intrauterine gestation which has migrated into the lower uterine segment. No cardiac activity is identified. Yolk sac is present. [place]-rump length measurement of 1.1 cm yielding estimated [...] [place] 08/11/22 4:11 pm Technologist: [facility] US Transvaginalon 08-11-2022 US Transvaginal EXAM: US 1st Trimester HISTORY: vaginal bleeding, 7 weeks COMPARISON: 08/08/2022. TECHNIQUE: Ultrasound obstetrical first trimester. FINDINGS: Single intrauterine gestation which has migrated into the lower uterine segment. No cardiac activity is identified. Yolk sac is present. [place]-rump length measurement of 1.1 cm yielding estimated [...] [place] 08/11/22 4:11 pm Technologist: GANESH Myers [facility] hCG Quantitativeon hCG Quantitative 4616.0 mIU/mL High 0.0-0.6 [facility] Comment on above: Result Comment: Post -Menopausal Reference Range is: 0.1-11.6 mIU/mL Performed By: #### 1 [id number], [id number], 8804529, 0338990, 90447241 ####[facility] (DEFAULT)[address] [place] [address] US PREG TVon 08-08-2022 US PREG TV [...] by: CHRISTIAN KATE Date: 2022-08-08 16:56 Normal [facility] Coding Summaryon 06-19-2022 Coding Summary HTMLBase 64 LorfijanBOx4hHz+PGhl YWQ+OI9SYYLvS82bmFCd nW3XA1pUYA4KKYMXITCW LJ4PCW6reOX4ZCtpE6Tz biAv KnkqkUYzBM50GQp7EZX0 cUbhVMloaN6icUOgJ9o2 OmQjWH27jR75ELcrZVOq OaQ4IdQxxrnkjGEh L7pdTgBkoVGhGtq+PHRh YmxlIHdpZHRoPScxMDAl EcUxeQxqSQ7jHb7aRAZt LWNvbGxhcHNlOiBj o1ujLSBcNLbkRI7ahXqq O2BcsDC9VOSyv1k2Gc38 dHI+FHXmRJC1jBwgNXbq k672RpOpe0qlXXQ0 iSNbKPhqRSC3K63tb3K1 ERZwNYHsQVC5zUV2xU9x wPzbskhwM8PgmDZyZnB5 OKD3uYDctJ5slRpx vesebR5nCgz+T51UJD9B KTQNVT2RTdv2H3MkPurt dHI+UG80SJEoKQ11aWUi wMCzi1epvLx2KiFs UDYlMBJ6wTldELibm7Bv TOUaT29ikTJrl2F6SEEg uXupsJHtDjEmqME0kJ0w WUqlwgnmv4annrjp Hramd2tqvj21wI06I83t SBnlDMXeLOZ0PKOfCXXr tBtelq6htP7wFa8+IDxj a0ixk8reiGp8FaAp USUnjjMehSxySLO3i4Dt Yh08K4EnkDftr7QhIsi0 es87pZRrp9S8fXP6TLfr KHHqjW6eBTvkBuX9 YOHmXkJibG43dMOaAOhx Uq3vxMgjtMgnEB6sRDBl uhuoNYKqoN5jDZSkmBFg yLhkHS4iOVUlyaqy o203RmBrDIG4XYTebRZq Y0GucG0zXpKwDVYcNLNy F4HyaBFxDYevL977CXlf GqH9UINhhqZzH9Lo EYMeoMssZqX1l7J5Ch9B h3OhsyhuXLK1JSyrWZRl JcX0KhWxLcW0J0CkYka2 OUSbkHywKX7yU2Qk PODwvhdzbiaooGX7PGRw ARMhdG50sWYjHPtxMa6g e1W0t192NHLnAHGjzT58 At7vpSwhQIKwvQIH rG3fmisky7rmlcgjTsCx FYNmXFd7KYt6DUZbwOrj WmJiFOS6GzD1UAN6jYBi hR7zxUcmrodbjY9p Oyc+B50xeT4yGEJ2EYR0 esolKWHtvsZkEN08RX19 O9KjVgpszJPzuMR+PGRp imBuwQsyFP0nNgVa v7trc9LwVYfnM7SvTXJl LDxgSpy0KIYyXRV7rWH6 pZ7iHBSnZRkrv0F8vPF2 P9WokvZegt3vl7ri LKBuCVwgH18fwXPem0F7 AOEcgNF8CZEypBpnRdOl pA27Tyk+SKDiuJcho9Qx Anmkd1utv5otrPk3 IjMwJSIgdmFsaWduPSJ0 z4TvMh22Q24hSAcdKCOl VKMcYXHeSEQjmAmuqs8d jO2cMc7+PGNvbCB3 zKZ1jE8oNMVqZuU0HCjl N683VcFhlEMoXkvfq6ed f6hqmVs7YmKhUYNccgWk fMrxAXU6r9CuZn83 T42rIZiiUONqLFWdZPOn HXZyoOefvm5epE9nEf5+ GL2ay5uxqy58jX61wEP+ ERDlXPU0yMpkADyf HZYcxT5pXUcfGpA3FOSs EtTobU37pNRjQQcgGy0y uDvsxUgyFE7fQHAquacx b329SnKyo7gnQJUn kSGyBIzrUZY6L88es3B1 WFEvTJYmIWL5kLL8fK0h bGlnbjogbGVmdDsgdmVy cErwUNgjTFhdW757 IHRvcDsnPlBhdGllbnQg DoWwFIl8Z9ArHyp5FFVt eFesDQ6mdXQnHKaaNg0n hTkkrArfCL7xOADa rjrxe324NgGza3noQQWd qQBxNYhfGWX3M82rr0F2 LJJvXDUdYMI3qAH8bD5c bGlnbjogbGVmdDsg xzNbeGblEThsYDykS113 IHRvcDsnPkJpcnRoIERh aTV8QI63JD88mNSvp1Z9 lIF1O6PkCHHlflcx diezgLN5GCZcDUFdtE53 Yy4gwXkwKz6iXXXoBJB7 EKSyiPKoP2JmsY3hZzZh AZLrAMFvV4MnoTHr BNevH337LJgaWxN9HFLu edOrE4BaSJSrzSdeSkT7 c6B6So0GF8F9SU92XA28 kJNdm5P3uFE7Z7Ch HUQgrnzhqakqcOR1IMPt HBHxaM40Cr6hgJqwWz6k CEMwTQK5PWLunFNvL7Ms zQ0nXwPzZMWiHOVc N8MqiWGxXMmoD126DXxr GsA9PWTlogDzX5MdOUZw oLjzDgH4v4J7Pf2KJUh7 LI77TD84cHXap1U0 kYH0V1FkVQTmzedaxavx cLZ5YCAkLHQtzC10As7p iJqqWj5rMOMsQDS6UFVr kGUhX2TciU5bXvMg QXIiBBFyF5FrxCKvHJya H499LWfjIoF0PTKdkrOi S7PlGVBgbRkhKxD3y8L1 Vq1AQWBaAO90MUR9 vAW9UF02SD40I1NeImfq dGFibGU+PHRhYmxlIHdp ZHRoPScxMDAlJyBzdHls UM1dJh9dAMPwIVOu bPiioORgVvVwp2ddBGRh ZAgsSX3zgEmpY1GsvPD8 DNIdt4x0Vx70A23nD6Xw dXA+EQTvhUR0mRY1 xD1rRwOyStZ1QRgxP601 AfEcuTCcNlpjk6qkz0ol bDc3CtI3RRMyfgRiyYls WMT8j6DpZz59L39z IHdpZHRoPSIxNSUiIHZh lOvqbk0mjX5zWp5+PGNv lXD5oSV9rQ9kTgSwLuG7 WTbvM506IcTpsQAu Ccsla8zbf2gjaAk9YcEk IRXtqfClpHtfHOZ6f9Us Rp13Y7ZufEtvk3GbYsi8 cm44dYNpa8Y0aJT2 O2BgPCKgyfjliDAptPey RZ6bYUZbxdttCFLeuX9o XNUeC9m5OiMtDrG6YBpv B3RhrqR0ALQccFTm KUalILP2G72kt7O0FIRa RINlUXP8wAG6vP8peMgt bjogbGVmdDsgdmVydGlj ENncJKchO763MWIb yNvdZFXuuR3pHMZzfYRc uQvhJD8gOGIifrfxQadO TEJFUlQsIFNIRUxCWSBM KEBDHoJ8W1TkWcv7 CKVfcZpsPA7pnBVnHNsb Qu3yoLmwwMrsWL9cPOGs utwtMJXevK9mBTYukSYt nAriEF3aRIBcriqt y389QmHeZRO3XSLhgAMi O4SzwW5pCiWyOEXqUMBq G8LyyVNoTHkpH800WSje OoO1ZPPonpVcQ0Ti CAWbpZsuPzW7s8T2Wq0i Py4xIy7dMPNtFQ20CT48 eGJiu4R9lBU5D4PeGLZp xhueualanYD5DRQc BXCogA97iLOgIBkfGu2f z4O6b475VGVkVUOadM62 Ri4uwOzxHIQmoBDRoK7m ftfdy0mblbmmGuWw CDUyFXt9LKy8QLRwnAav QnKlMVV8ZlG2HXU9qALf tR6coMufnhxbjT7nLlc+ IlJqSXHklkC9J8Os Zlr5UAKsbEszKN3uaDBt FKpbWz6lcOdavEilNQ3t VSZdrakvTXGsfX0gRPSk sREdqDwxDJ2tUKQz stcca539NfFjQUF1YMOa mVZqA4LvkR4sEhLeZTGr ZZMoK0RquOUxJZoyO801 ACmwRrA2QCPeamIm W1LsPRGpoQadCbB2b5N2 Yj5MTF9NCZZ9V1ZzFuk4 IBLvjVecZN8jfREfXDlw Ih9fpUyvsJruBK6d ALRbutxaUEScjD6pVNBq hMIwcUrbRS7qXOIwypai w202EzAtBIR0UERchWIz N6OigK6sByDxLVYk HJRdY5TygLPbLPyjD210 NFyaPqA9HXNjhuWpG9Ql AAFbhDwsRvW1u3Y5Wz8Q UDwvdGQ+SK74wi19 U2JuIfjoLbg8CYJzPNP1 nZZ6xL1cZCItYXvng7U1 eMU1O8VnzoZbsx1go8ym JOZlBYalU04wbOBi f4V5RODldUA1YBFgjTlu YnCyrO61Fkz+PGNvbGdy a0EkEzknz6hwa5fitPw1 IjMwJSIgdmFsaWdu QWP5d3HoLy66M81wRTct ZHRoPSIzMCUiIHZhbGln bm0jiI3sQj2+PGNvbCB3 nHF9kI2zYaYyKaE2 TUhzX611IwZurLFhCutg k6vsn1rrlUg5OeGhQTIm isRnsQtcJDE2g8OpOz39 Z8MaoClab9QbHdk2 py40lQPor4W3oVW2Z9Qi OVVbdlsakGUeiYfqWA6p SHIelwcoYNHdrP8tRFYz D4d8QkFaQqQ2NVzk Z9DnlaM3SZPlzJSjBGQg bBJXcW5rsgbty7dodaqp XhAnSLUsYKp9GGe0YDCn nWbeGnEbUNE1WjA6 CAZ1oJPxqR7ajUrnzvuj wX0cQmk+BGk4v5rlhVOb UJ7xwVK9TG22HP93bSQn d5I0cLU7H0XdKKHp xpzzrospaOT1OXCcFQNa wZ00Bg7kaYmyVk4kSWZt QIH2PLOmjETzZ0IjqL6a KnBvRWUiBFXtU7Aa hSBaQJpiR516NAzxNkI7 BOCxliXiV9QfIUCrvUlp ZqQ8a9U9Ug0RPO67LM34 WH84tVFww7J2uPM3 A5GfXHGsmljnnmnbrIZ0 AZQvZTCnaT15Iz7dhPbw Cd2pWEDaNDF1PZNhsIDc I6FtqI3sEnPuLJRa HOZsX5OxjWVtZOawC927 UQohUkT4LAQuydXkT1Ge BLYrqWpgSvK4s1W8Yn1I Rx59FZ77GH15uEVu r1S1yGX4Y9AsBDHtovfu mbumpHW2OUQdHCJvsQ42 It4uoLxiDj2mAIKbVWY0 TZZsaZTaJ3BtkN8s JkSyETGnSLJhV4LwcWAf CTxiY993GTfyMoI3FDNg sdWfX5AxLVCoaYujAsF6 n5Z3Uf0NQFvynsi4 G3ZiCmfwfLK+OS81USMy IJ04qVSsnLCnd3ohaNj2 GaLcPOAvJQG9wNswVDgc l1KyETKlD63sqCKo c2U (more content not included)... Normal [facility] C Throaton 06-14-2022 C Throat Ordered by Discern. Normal throat jonny isolated No pathogens isolated Normal [facility] Comment on above: Performed By: #### 1 [id number], [id number] #### [facility] (DEFAULT) [address] [place] [address] ED Clinical Summaryon [address] [facility] ? Urgent Care [address] [place] [address] Clinical Summary PERSON INFORMATION Name: LIA DESAI Age: 21 Years Sex: FEMALE : 2000 MRN: Acct#: Visit Reason: UC - Sore Throat; UC - Body Aches; SORE THROAT, COUGH, BODY ACHES Arrival: 06/12/2022 16:17:17 Discharge: 06/12/2022 17:23:00 LOS: 000 01:06 Check In: 06/12/2022 16:17:17 Checkout: 06/12/2022 17:23:00 Address: [address] [facility] [address] PCP: Provider, None PROVIDER INFORMATION Provider Role Assigned Unassigned Birdie James HEAVY TRUCK TECHNICIAN Nurse 06/12/2022 16:19:28 Nelson Sharma PA-C ED PA 06/12/2022 16:22:15 VITALS INFORMATION Vital Sign Triage Latest Temperature Tympanic Temperature Temporal Artery Pulse Rate O2 Sat 98 % 98 % Respiratory Rate Blood Pressure /76 mmHg /76 mmHg MEDICAL INFORMATION Medications Given: Allergy Information: Adhesive Bandage; Zithromax PHYSICIAN DOCUMENTATION DISCHARGE INFORMATION: Discharge Disposition: Home Discharge Location: Home PATIENT EDUCATION INFORMATION Instructions: Cough, Adult, Bycu-mw-Snyj; Pharyngitis, Bkyg-ua-Larn Follow-Up: With: Address: When: None Provider [address] [place] [address] Within 1 week Comments: Please follow-up with your primary care provider, call the office schedule an appointment to be seen in a week or sooner for continued care, you will be notified with your results, please take as Tessalon Perles as prescribed, take sxkr-xds-lknndzf ibuprofen and Tylenol as needed for fevers, body aches, or headaches. Drink plenty of water to stay hydrated, and return back to the urgent care center for any worsening symptoms, concerns, or complications. DIAGNOSIS: 1:Pharyngitis; 2:Cough Patient Understands: Yes - Patient/family/careg iver verbalizes understanding of instructions given Comment: Normal [facility] ED Patient Summaryon [address] [facility] ? Urgent Care [address] [place] [address] PATIENT DISCHARGE INSTRUCTIONS Patient Information Name: LIA DESAI Age: 21 Years Date of : 2000 Reason For Visit: UC - Sore Throat; UC - Body Aches; SORE THROAT, COUGH, BODY ACHES Arrival Time: 06/12/2022 16:17:17 Primary Care Physician: Provider, None Attending Physician: Nelson Sharma PA-C Comment: Patient Education With: Address: When: None Provider [address] [place] [address] Within 1 week Comments: Please follow-up with your primary care provider, call the office schedule an appointment to be seen in a week or sooner for continued care, you will be notified with your results, please take as Tessalon Perles as prescribed, take dmdr-bws-vojxezw ibuprofen and Tylenol as needed for fevers, [...] these instructions at home: Medicines ? Take cgem-lqi-didpeoi and prescription medicines only as told by [...] things can cause a cough. ? Take abid-cpt-oewozhm and prescription medicines only as told by [...] provider. Document Revised: 05/13/2020 Document Reviewed: 04/13/2019 [email or web address] Patient Education ? 2021 [employer]. Pharyngitis Pharyngitis is a sore throat (pharynx). [...] Symptoms may (more content not included)... Normal [facility] Strep Aon 06-12-2022 Strep procedure control Pass [facility] Comment on above: Performed By: #### 1 [id number], [id number] #### [facility] (DEFAULT) [address] [place] [address] Streptococcus A Negative Normal Negative [facility] Comment on above: Performed By: #### 1 [id number], [id number] #### [facility] (DEFAULT) [address] [place] [address] Urgent Care [facility] [address] [facility] ? Urgent Care [address] [place] [address] PATIENT DISCHARGE INSTRUCTIONS Patient Information Name: LIA DESAI Age: 21 Years Date of : 2000 Reason For Visit: UC - Sore Throat; UC - Body Aches; SORE THROAT, COUGH, BODY ACHES Arrival Time: 06/12/2022 16:17:17 Primary Care Physician: Provider, None Attending Physician: Nelson Sharma PA-C Comment: Visit Diagnosis: Diagnoses This Visit Cough (R05.9) Pharyngitis (J02.9) UC - Body Aches ([id number]) UC - Sore Throat ([id number]) If you received any narcotics, sedation, or [...] documents With: Address: When: None Provider [address] [place] [address] Within 1 week Comments: Please follow-up with your primary care provider, call the office schedule an appointment to be seen in a week or sooner for continued care, you will be notified with your results, please take as Tessalon Perles as prescribed, take olli-mjv-bvspedm ibuprofen and Tylenol as needed for fevers, body aches, or headaches. Drink plenty of water to stay hydrated, and return back to the urgent care center for any worsening symptoms, concerns, or complications. Medication Information: The exam and treatment you received today in the [facility] were for an urgent problem and are not intended as complete care. It is important for you to follow up with a doctor, nurse practitioner, or physician?s radiology assistant for ongoing care. If your symptoms [...] so we can reach you if necessary. [facility] has provided you with a complete list of medications post discharge. Please inform your core drill operator/provider of your visit and for further instruction on these medications. Any specific questions regarding your chronic medications and dosages should be discussed with your primary care physician(s) and/or pharmacist. New Medications [facility], [address], [place] [id number], [phone] benzonatate (Tessalon Perles 100 mg oral capsule) [...] these instructions at home: Medicines ? Take hswa-cio-metkcfb and prescription medicines only as told by your doctor. (more content not included)... Normal [facility] US PELVIS AND TRANSVAGon US PELVIS [...] ANGELA SCOTT Date: 2022-06-04 06:57 Normal [facility] US PREG TVon 05-16-2022 US PREG TV [...] CHRISTIAN KATE Date: 2022-05-16 18:15 Normal [facility] HEP B SURFACE ANTIGEN SCREEN on 04-20-2022 HBsAg Screen Negative Normal Negative [facility] Comment on above: Performed By: #### H BSANS #### [facility] [address] [place] [address] Dr. Jeronimo Melgar HEPATITIS C VIRUS AB W/ REFL EX QUANTon 04-20-2022 HCV AB <0.1 Normal 0.0-0.9 [facility] Comment on above: Performed By: #### H CVPCRR #### [facility] [address] [place] [address] Dr. Jeronimo Melgar Interpretation: Comment Normal [facility] Comment on above: Result Comment: Nega tive Not infected with HCV, unless recent infection is suspected or other evidence exists to indicate HCV infection. Performed By: #### H CVPCRR #### [facility] [address] [address] [address] Jeronimo Melgar HIV 1 AND 2 WITH REFLEXon HIV Screen 4th Generation wRfx Non-Reactive Normal Non Reactive [facility] Comment on above: Result Comment: HIV Negative HIV-1/HIV-2 antibodies and HIV-1 p24 antigen were NOT detected. There is no laboratory evidence of HIV infection. Performed By: #### H IV12 #### [facility] [address] [place] [address] Dr. Jeronimo Melgar RPR QUANTon 04-20-2022 Rapid Plasma Reagin, Quant Non-Reactive Normal NonRea<1:1 [facility] Comment on above: Result Comment: Plea se Note: This test does not meet current guidelines for screening and diagnosis of syphilis. This test is intended for following treatment response in patients being treated for syphilis infection. To screen for syphilis infection, a reflex cascade that includes both RPR and a treponema-specific assay should be utilized, such as Treponema pallidum (Syphilis) Screening [place] (495151) or Rapid Plasma Reagin (RPR) Test With Reflex to Quantitative RPR and Confirmatory Treponema pallidum Antibodies (602507). Performed By: #### R PRQ #### [facility] [address] [place] [address] Dr. Jeronimo Melgar RUBELLA AB IGGon 04-20-2022 Rubella Antibodies, IgG 1.85 index Normal Immune >0.99 [facility] Comment on above: Result Comment: Non- immune <0.90 Equivocal 0.90 - 0.99 Immune >0.99 Performed By: #### B OX #### [facility] [address] [place] [address] Dr. Jeronimo Melgar BOX TEST SENT OUTon 04-19-19 23 SENT TO REF LAB 04/19/2022 Normal [facility] Comment on above: Performed By: #### B OX #### [facility] [address] [place] [address] Dr. Jeronimo Melgar CBC AUTO DIFFon 04-19-2022 BASO # 0.1 103/ul Normal 0.0-0.1 [facility] Comment on above: Performed By: #### B OX #### [facility] [address] [place] [address] Dr. Jeronimo Melgar Basophils/100 WBC (Bld) 0.5 % Normal 0.2-2.0 [facility] Comment on above: Performed By: #### B OX #### [facility] [address] [place] [address] Dr. Jeronimo Melgar EO # 0.1 103/ul Normal 0.0-0.7 [facility] Comment on above: Performed By: #### B OX #### [facility] [address] [place] [address] Dr. Jeronimo Melgar Eosinophils/100 WBC (Bld) 0.7 % Critically low 0.9-7.0 [facility] Comment on above: Performed By: #### B OX #### [facility] [address] [place] [address] Dr. Jeronimo Melgar Erythrocyte distribution width (RBC) [Ratio] 12.8 % Normal 11.0-15.0 [facility] Comment on above: Performed By: #### B OX #### [facility] [address] [place] [address] Dr. Jeronimo Melgar Hematocrit (Bld) [Volume fraction] 43.7 % Normal 36.0-48.0 [facility] Comment on above: Performed By: #### B OX #### [facility] [address] [place] [address] Dr. Jeronimo Melgar Hemoglobin (Bld) [Mass/Vol] 13.1 g/dL Normal 12.0-16.0 [facility] Comment on above: Performed By: #### B OX #### [facility] [address] [place] [address] Dr. Jeronimo Melgar IG # 0.02 10e3/ul Normal 0.00-0.03 [facility] Comment on above: Performed By: #### B OX #### [facility] [address] [place] [address] Dr. Jeronimo Melgar IG % 0.2 % Normal 0.0-0.5 [facility] Comment on above: Performed By: #### B OX #### [facility] [address] [place] [address] Dr. Jeronimo Melgar LYMPH # 2.6 103/ul Normal 1.2-3.8 [facility] Comment on above: Performed By: #### B OX #### [facility] [address] [place] [address] Dr. Jeronimo Melgar Lymphocytes/100 WBC (Bld) 27.3 % Normal 20.5-60.0 [facility] Comment on above: Performed By: #### B OX #### [facility] [address] [place] [address] Dr. Jeronimo Melgar MANUAL DIFF REQ NO Normal [facility] Comment on above: Performed By: #### B OX #### [facility] [address] [place] [address] Dr. Jeronimo Melgar MCH (RBC) [Entitic mass] 27.7 pg Normal 26.7-34.0 [facility] Comment on above: Performed By: #### B OX #### [facility] [address] [place] [address] Dr. Jeronimo Melgar MCHC (RBC) [Mass/Vol] 30.0 g/dL Normal 29.9-35.2 [facility] Comment on above: Performed By: #### B OX #### [facility] [address] [place] [address] Dr. Jeronimo Melgar MCV (RBC) [Entitic vol] 92.4 fL Normal 81.0-99.0 [facility] Comment on above: Performed By: #### B OX #### [facility] [address] [place] [address] Dr. Jeronimo Melgar MONO # 0.8 103/ul Normal 0.3-0.8 [facility] Comment on above: Performed By: #### B OX #### [facility] [address] [place] [address] Dr. Jeronimo Melgar Monocytes/100 WBC (Bld) 7.8 % Normal 1.7-12.0 [facility] Comment on above: Performed By: #### B OX #### [facility] [address] [place] [address] Dr. Jeronimo Melgar NEUT # 6.1 103/ul Normal 1.4-6.5 [facility] Comment on above: Performed By: #### B OX #### [facility] [address] [place] [address] Dr. Jeronimo Melgar Neutrophils/100 WBC (Bld) 63.5 % Normal 43.0-75.0 [facility] Comment on above: Performed By: #### B OX #### [facility] [address] [place] [address] Dr. Jeronimo Melgar Platelet mean volume (Bld) [Entitic vol] 10.7 fL Normal 9.5-13.5 [facility] Comment on above: Performed By: #### B OX #### [facility] [address] [place] [address] Dr. Jeronimo Melgar PLT 399 103/ul Normal 150-450 [facility] Comment on above: Performed By: #### B OX #### [facility] [address] [place] [address] Dr. Jeronimo Melgar RBC 4.73 106/ul Normal 4.20-5.40 [facility] Comment on above: Performed By: #### B OX #### [facility] [address] [place] [address] Dr. Jeronimo Melgar WBC 9.6 103/ul Normal 4.0-11.0 [facility] Comment on above: Performed By: #### B OX #### [facility] [address] [place] [address] Dr. Jeronimo Melgar CULTURE URINEon 04-19-2022 CULTURE URINE Culture Observations: LIGHT GROWTH OF MIXED GENITAL JONNY. NO POTENTIAL PATHOGENS SEEN. Normal [facility] Comment on above: Performed By: #### B OX #### [facility] [address] [place] [address] Dr. Jeronimo Melgar DRUG SCREEN RAPID (URINE)on 04-19-2022 AMP Negative Normal NEGATIVE [facility] Comment on above: Performed By: #### H IV12 #### [facility] [address] [place] [address] Dr. Jeronimo Melgar BAR Negative Normal NEGATIVE [facility] Comment on above: Performed By: #### H IV12 #### [facility] [address] [place] [address] Dr. Jeronimo Melgar BUP Negative Normal NEGATIVE [facility] Comment on above: Performed By: #### H IV12 #### [facility] [address] [place] [address] Dr. Jeronimo Melgar BZO Negative Normal NEGATIVE [facility] Comment on above: Performed By: #### H IV12 #### [facility] [address] [place] [address] Dr. Jeronimo Melgar KRISTINA Negative Normal NEGATIVE [facility] Comment on above: Performed By: #### H IV12 #### [facility] [address] [place] [address] Dr. Jeronimo Melgar CUT-OFFS SEE BELOW Normal [facility] Comment on above: Result Comment: AMP [...] ng/mL Performed By: #### H IV12 #### [facility] [address] [place] [address] Dr. Jeronimo Melgar DRUG CUT HEADER DRUG CLASS TEST SYSTEM CUT-OFF CONCENTRATIONS ARE FOLLOWS: Normal [facility] Comment on above: Performed By: #### H IV12 #### [facility] [address] [place] [address] Dr. Jeronimo Melgar mAMP Negative Normal NEGATIVE [facility] Comment on above: Performed By: #### H IV12 #### [facility] [address] [address] [address] Jeronimo Melgar MTD Negative Normal NEGATIVE [facility] Comment on above: Performed By: #### H IV12 #### [facility] [address] [place] [address] Dr. Jeronimo Melgar OPI Negative Normal NEGATIVE [facility] Comment on above: Performed By: #### H IV12 #### [facility] [address] [address] [address] Jeronimo Melgar OXY Negative Normal NEGATIVE [facility] Comment on above: Performed By: #### H IV12 #### [facility] [address] [address] [address] Jeronimo Melgar PCP Negative Normal NEGATIVE [facility] Comment on above: Performed By: #### H IV12 #### [facility] [address] [place] [address] Dr. Jeronimo Melgar PPX Negative Normal NEGATIVE [facility] Comment on above: Performed By: #### H IV12 #### [facility] [address] [address] [address] Jeronimo Melgar TCA Negative Normal NEGATIVE [facility] Comment on above: Performed By: #### H IV12 #### [facility] [address] [place] [address] Dr. Jeronimo Melgar THC Negative Normal NEGATIVE [facility] Comment on above: Performed By: #### H IV12 #### [facility] [address] [place] [address] Dr. Jeronimo Melgar GLYCOHEMOGLOBIN A1Con 2022 ADA RECOMMENDATION SEE BELOW Normal [facility] Comment on above: Result Comment: ADA RECOMMENDED LIMIT 4.0 - 6.0 ADA THERAPEUTIC TARGET < 7.0 ACTION SUGGESTED > 7.0 Performed By: #### A 1C #### [facility] [address] [place] [address] Dr. Jeronimo Melgar Glucose [Mass/Vol] 100 mg/dL Normal [facility] Comment on above: Performed By: #### A 1C #### [facility] [address] [place], [place] [id number] Dr. Jeronimo Melgar HbA1c (Bld) [Mass fraction] 5.1 % Normal 4.5-6.2 [facility] Comment on above: Performed By: #### A 1C #### [facility] [address] [place] [address] Dr. Jeronimo Melgar TYPE AND SCREENon 04-19-2022 TYPE AND SCREEN Negative Normal [facility] Comment on above: Performed By: #### B OX #### [facility] [address] [place] [address] Dr. Jeronimo Melgar CBC AUTO DIFFon 04-02-2022 BASO # 0.0 103/ul Normal 0.0-0.1 [facility] Comment on above: Performed By: #### C BC #### [facility] [address] [place] [address] Dr. Jeronimo Melgar Basophils/100 WBC (Bld) 0.3 % Normal 0.2-2.0 [facility] Comment on above: Performed By: #### C BC #### [facility] [address] [place] [address] Dr. Jeronimo Melgar EO # 0.0 103/ul Normal 0.0-0.7 [facility] Comment on above: Performed By: #### C BC #### [facility] [address] [place] [address] Dr. Jeronimo Melgar Eosinophils/100 WBC (Bld) 0.2 % Critically low 0.9-7.0 [facility] Comment on above: Performed By: #### C BC #### [facility] [address] [place] [address] Dr. Jeronimo Melgar Erythrocyte distribution width (RBC) [Ratio] 12.9 % Normal 11.0-15.0 [facility] Comment on above: Performed By: #### C BC #### [facility] [address] [place] [address] Dr. Jeronimo Melgar Hematocrit (Bld) [Volume fraction] 37.5 % Normal 36.0-48.0 [facility] Comment on above: Performed By: #### C BC #### [facility] [address] [address] [address] Jeronimo Melgar Hemoglobin (Bld) [Mass/Vol] 12.4 g/dL Normal 12.0-16.0 [facility] Comment on above: Performed By: #### C BC #### [facility] [address] [address] [address] Jeronimo Melgar IG # 0.05 10e3/ul Critically high 0.00-0.03 [facility] Comment on above: Performed By: #### C BC #### [facility] [address] [place] [address] Dr. Jeronimo Melgar IG % 0.3 % Normal 0.0-0.5 [facility] Comment on above: Performed By: #### C BC #### [facility] [address] [place] [address] Dr. Jeronimo Melgar LYMPH # 2.0 103/ul Normal 1.2-3.8 [facility] Comment on above: Performed By: #### C BC #### [facility] [address] [place] [address] Dr. Jeronimo Melgar Lymphocytes/100 WBC (Bld) 14.1 % Critically low 20.5-60.0 [facility] Comment on above: Performed By: #### C BC #### [facility] [address] [place] [address] Dr. Jeronimo Melgar MANUAL DIFF REQ NO Normal [facility] Comment on above: Performed By: #### C BC #### [facility] [address] [place] [address] Dr. Jeronimo Melgar MCH (RBC) [Entitic mass] 27.9 pg Normal 26.7-34.0 [facility] Comment on above: Performed By: #### C BC #### [facility] [address] [place] [address] Dr. Jeronimo Melgar MCHC (RBC) [Mass/Vol] 33.1 g/dL Normal 29.9-35.2 [facility] Comment on above: Performed By: #### C BC #### [facility] [address] [place] [address] Dr. Jeronimo Melgar MCV (RBC) [Entitic vol] 84.3 fL Normal 81.0-99.0 [facility] Comment on above: Performed By: #### C BC #### [facility] [address] [place] [address] Dr. Jeronimo Melgar MONO # 0.6 103/ul Normal 0.3-0.8 [facility] Comment on above: Performed By: #### C BC #### [facility] [address] [place] [address] Dr. Jeronimo Melgar Monocytes/100 WBC (Bld) 4.0 % Normal 1.7-12.0 [facility] Comment on above: Performed By: #### C BC #### [facility] [address] [place] [address] Dr. Jeronimo Melgar NEUT # 11.7 103/ul Critically high 1.4-6.5 [facility] Comment on above: Performed By: #### C BC #### [facility] [address] [place] [address] Dr. Jeronimo Melgar Neutrophils/100 WBC (Bld) 81.1 % Critically high 43.0-75.0 [facility] Comment on above: Performed By: #### C BC #### [facility] [address] [place] [address] Dr. Jeronimo Melgar Platelet mean volume (Bld) [Entitic vol] 10.2 fL Normal 9.5-13.5 [facility] Comment on above: Performed By: #### C BC #### [facility] [address] [place] [address] Dr. Jeronimo Melgar PLT 420 103/ul Normal 150-450 [facility] Comment on above: Performed By: #### C BC #### [facility] [address] [place] [address] Dr. Jeronimo Melgar RBC 4.45 106/ul Normal 4.20-5.40 [facility] Comment on above: Performed By: #### C BC #### [facility] [address] [place] [address] Dr. Jeronimo Melgar WBC 14.4 103/ul Critically high 4.0-11.0 [facility] Comment on above: Performed By: #### C BC #### [facility] [address] [place] [address] Dr. Jeronimo CARMICHAEL URINE PROFILEon 2 Bilirubin Ql (U) Negative Normal NEGATIVE [facility] Comment on above: Performed By: #### B OX #### [facility] [address] [place] [address] Dr. Jeronimo Melgar Clarity (U) CLEAR Normal CLEAR [facility] Comment on above: Performed By: #### B OX #### [facility] [address] [place] [address] Dr. Jeronimo Melgar Color (U) YELLOW Normal YELLOW [facility] Comment on above: Performed By: #### B OX #### [facility] [address] [place] [address] Dr. Jeronimo MONSIVAISMarko A micrscopic examination will be performed if indicated. Normal The [facility] Comment on above: Performed By: #### B OX #### [facility] [address] [place] [address] Dr. Jeronimo Melgar Glucose Ql (U) Negative Normal NEGATIVE [facility] Comment on above: Performed By: #### B OX #### [facility] [address] [place] [address] Dr. Jeronimo Melgar Hemoglobin Ql (U) Negative Normal NEGATIVE [facility] Comment on above: Performed By: #### B OX #### [facility] [address] [place] [address] Dr. Jeronimo Melgar Ketones Ql (U) >=80 Abnormal NEGATIVE [facility] Comment on above: Performed By: #### B OX #### [facility] [address] [place] [address] Dr. Jeronimo Melgar LEUKOCYTES Negative Normal NEGATIVE [facility] Comment on above: Performed By: #### B OX #### [facility] [address] [place] [address] Dr. Jeronimo Melgar Nitrite Ql (U) Negative Normal NEGATIVE [facility] Comment on above: Performed By: #### B OX #### [facility] [address] [place] [address] Dr. Jeronimo Melgar pH (U) 7.0 [pH] Normal 5-9 [facility] Comment on above: Performed By: #### B OX #### [facility] [address] [address] [address] Jeronimo Melgar SPEC GRAVITY 1.020 Normal 1.005-<=1.025 [facility] Comment on above: Performed By: #### B OX #### [facility] [address] [place] [address] Dr. Jeronimo Melgar UA PROTEIN TRACE Normal NEGATIVE/ TRACE [facility] Comment on above: Performed By: #### B OX #### [facility] [address] [place] [address] Dr. Jeronimo Melgar UR MICRO IND NOT INDICATED Normal [facility] Comment on above: Performed By: #### B OX #### [facility] [address] [place] [address] Dr. Jeronimo Melgar Urobilinogen Qn (U) 1.0 {Pepito'U}/dL Normal 0.2 - 1. 0 [facility] Comment on above: Performed By: #### B OX #### [facility] [address] [place] [address] Dr. Jeronimo Melgar PROF CHEM 8 (BAS METB)on Anion gap [Moles/Vol] 12.7 mmol/L Normal [facility] Comment on above: Performed By: #### B MP #### [facility] [address] [place] [address] Dr. Jeronimo Melgar Calcium [Mass/Vol] 9.1 mg/dL Normal 8.5-10.1 [facility] Comment on above: Performed By: #### B MP #### [facility] [address] [place] [address] Dr. Jeronimo Melgar Chloride [Moles/Vol] 103 mmol/L Normal 98-107 [facility] Comment on above: Performed By: #### B MP #### [facility] [address] [place], [place] [id number] Dr. Jeronimo Melgar CO2 [Moles/Vol] 23.9 mmol/L Normal 21.0-32.0 [facility] Comment on above: Performed By: #### B MP #### [facility] [address] [place] [address] Dr. Jeronimo Melgar Creatinine [Mass/Vol] 0.78 mg/dL Normal 0.55-1.02 [facility] Comment on above: Performed By: #### B MP #### [facility] [address] [place] [address] Dr. Jeronimo Melgar EGFR-AF [place]ER >60 Normal >=60 [facility] Comment on above: Performed By: #### B MP #### [facility] [address] [place] [address] Dr. Jeronimo Melgar EGFR-NON AF [place] >60 Normal >=60 [facility] Comment on above: Performed By: #### B MP #### [facility] [address] [place] [address] Dr. Jeronimo Melgar Glucose [Mass/Vol] 155 mg/dL Critically high 74-106 T [facility] Comment on above: Performed By: #### B MP #### [facility] [address] [place] [address] Dr. Jeronimo Melgar Potassium [Moles/Vol] 3.6 mmol/L Normal 3.5-5.1 [facility] Comment on above: Performed By: #### B MP #### [facility] [address] [place] [address] Dr. Jeronimo Melgar Sodium [Moles/Vol] 136 mmol/L Normal 136-145 [facility] Comment on above: Performed By: #### B MP #### [facility] [address] [place] [address] Dr. Jeronimo Melgar Urea nitrogen [Mass/Vol] 7.0 mg/dL Normal 7.0-18.0 [facility] Comment on above: Performed By: #### B MP #### [facility] [address] [place] [address] Dr. Jeronimo Melgar Urea nitrogen/Creatinine [Mass ratio] 9.0 mg/mg Normal [facility] Comment on above: Performed By: #### B MP #### [facility] [address] [address] [address] Jeronimo Melgar US PREG TVon 03-28-2022 [...] ANGELA SCOTT Date: 2022-03-28 16:32 Normal [facility] US PELVIS AND TRANSVAGon US PELVIS AND [...] CHRISTIAN KATE Date: 2021-10-17 16:35 Normal [facility] CHLAMYDIA/GONOCOCCUS MILY (SW AB/URINE/PAPon 10-14-2021 Chlamydia trachomatis, MILY Positive Abnormal Negative [facility] Comment on above: Result Comment: . Performed By: #### C T/NGNA #### [facility] [address] [place], [place] [address] Dr. Jeronimo Melgar Neisseria gonorrhoeae, MILY Negative Normal Negative [facility] Comment on above: Performed By: #### C T/NGNA #### [facility] [address] [address] [address] Jeronimo Melgar VAGINITIS/VAGINOSIS DNA PROB Obed 10-13-2021 Lesa species Negative Normal Negative [facility] Comment on above: Performed By: #### V AGINT #### [facility] [address] [address] [address] Jeronimo Melgar Gardnerella vaginalis Negative Normal Negative [facility] Comment on above: Performed By: #### V AGINT #### [facility] [address] [address] [address] Jeronimo Melgar Trichomonas vaginalis Negative Normal Negative [facility] Comment on above: Performed By: #### V AGINT #### [facility] [address] [address] [address] Jeronimo Melgar XR foot LT min 3V*on 022 XR foot LT min 3V* [facility] [place] [address] XRay Report Signed Patient: Lia Desai MR#: [id number] : 2000 Acct:[id number] Age/Sex: 20 / F ADM Date: 07/18/21 Loc: ER Room: Type: [facility] ER Attending Dr: Ordering Provider: Oneil Ricci APRN Date of Service: 07/18/21 XR/XR foot LT min 3V*: Extremity Injury, Lower ([id number]) XR/XR ankle LT min 3V*: Extremity Injury, [...] Brewer Jr., M.D.07/18/2021 6:15 PM Dictation Location: [place] [address] Transcribed By: CYNDEE 07/18/211814 Dictated By: Bijan Brewer Jr, MD 07/18/211812 Signed By: 07/18/211814 [facility] XR knee RT 4V*on 05-15-2021 XR knee RT 4V* [facility] [place] [address] XRay Report Signed Patient: Lia Desai MR#: [id number] : 2000 Acct:[id number] Age/Sex: 20 / F ADM Date: 05/15/21 Loc: ER Room: Type: [facility] ER Attending Dr: Ordering Provider: Yovani Valle [...] Ana Juan M.D.05/15/2021 8:11 PM Dictation Location: [place] [address] Transcribed By: CYNDEE 05/15/212010 Dictated By: Ana Juan II, MD 05/15/212008 Signed By: 05/15/212010 [facility] Vital Signs Date Time Vital Sign Value Performing Clinician Francisco maria 07-18-2021 16:56-0400 Body height 167.64 cm [facility] 07-18-2021 16:56-0400 Body mass index (BMI) [Percentile] Per age and sex 98.9 % [facility] 07-18-2021 16:56-0400 Body mass index (BMI) [Ratio] 44.3 kg/m2 [facility] 07-18-2021 16:56-0400 Body temperature 98.3 [degF] [facility] 07-18-2021 16:56-0400 Body weight 124.6 kg [facility] 07-18-2021 16:56-0400 Diastolic blood pressure 108 mm[Hg] [facility] 07-18-2021 16:56-0400 Heart rate 80 /min [facility] 07-18-2021 16:56-0400 Respiratory rate 18 /min [facility] 07-18-2021 16:56-0400 Systolic blood pressure 162 mm[Hg] [facility] 05-15-2021 19:47-0500 Body height 167.64 cm [facility] 05-15-2021 19:47-0500 Body mass index (BMI) [Percentile] Per age and sex 98.9 % [facility] 05-15-2021 19:47-0500 Body mass index (BMI) [Ratio] 43.7 kg/m2 [facility] 05-15-2021 19:47-0500 Body temperature 98.8 [degF] [facility] 05-15-2021 19:47-0500 Body weight 122.95 kg [facility] 05-15-2021 19:47-0500 Diastolic blood pressure 65 mm[Hg] [facility] 05-15-2021 19:47-0500 Heart rate 75 /min [facility] 05-15-2021 19:47-0500 Respiratory rate 16 /min [facility] 05-15-2021 19:47-0500 SaO2% (BldA) [Mass fraction] 100 % [facility] 05-15-2021 19:47-0500 Systolic blood pressure 144 mm[Hg] [facility] Encounters Encounter Date Encounter Type Care Provider Facility Start: 10-28-2023 End: 10-28-2023 ambulatory DAPHNIE CR Not Available Start: 10-14-2023 End: 10-14-2023 ambulatory ROBERT JANES Not Available Start: 10-01-2023 End: 10-01-2023 ambulatory ROBERT JANES Not Available Start: 09-17-2023 End: 09-17-2023 ambulatory ROBERT JANES Not Available Start: 09-04-2023 End: 09-04-2023 ambulatory ZEKE RAMÍREZ [facility] Start: 09-04-2023 End: 09-04-2023 Emergency department patient visit [facility] Start: 08-26-2023 End: 08-26-2023 ambulatory ROBERT JANES Not Available Start: 07-30-2023 End: 07-30-2023 [facility] Start: 07-29-2023 End: 07-29-2023 ambulatory ROBERT JANES Not Available Start: 07-11-2023 End: 07-11-2023 Emergency department patient visit [facility] Start: 07-05-2023 End: 07-05-2023 Emergency department patient visit [facility] Start: 07-01-2023 End: 07-01-2023 ambulatory DAPHNIE CR Not Available Start: 06-18-2023 End: 06-18-2023 ambulatory ROBERT JANES Not Available Start: 06-03-2023 End: 06-03-2023 ambulatory ROBERT JANES Not Available Start: 05-26-2023 End: 05-26-2023 Emergency department patient visit Yassine Maldonado Facility:[facility] Start: 05-17-2023 Clinisync Result Encounter Robert Janes DO Work Phone: [facility] Unsolicited Start: 05-17-2023 Clinisync Result Encounter Robert Janes DO Work Phone: [facility] Unsolicited Start: 05-15-2023 End: 05-15-2023 Emergency department patient visit Mamie Moore Facility:[facility] Start: 05-14-2023 Chart abstracting Robert Janes DO Work Phone: [facility] Start: 05-07-2023 Documentation procedure Leah Hernandez RN [facility] [place] Start: 05-02-2023 End: 05-02-2023 ambulatory ROBERT MARRERO Not Available Start: 04-19-2023 Telephone encounter Leah Hernandez RN [facility] Certified Nurse [facility] [place] Start: 04-17-2023 Telephone encounter Leah Hernandez RN [facility] Certified [facility] [place] Start: 04-15-2023 End: 04-15-2023 Emergency department patient visit Yassine Maldonado Facility:[facility] Start: 04-12-2023 End: 04-12-2023 ambulatory Oneil MILLS Facility:[facility] Start: 04-05-2023 Orders Only Leah Hernandez RN [facility]ified [facility] [place] Comment on above: Nausea and vomiting during (Primary Dx) Start: 03-01-2023 End: 03-01-2023 Emergency department patient visit Tom Smith Facility:[facility] Start: 02-26-2023 End: 02-26-2023 ambulatory Errol JUSTICE Facility:[facility] Start: 02-14-2023 End: 02-14-2023 ambulatory DORA MILLS Facility:[facility] Start: 11-15-2022 End: 11-15-2022 Emergency department patient visit None Provider Facility:[facility] Start: 08-25-2022 End: 08-26-2022 ambulatory Alaina Matta CNM Facility:[facility] Start: 08-11-2022 End: 08-11-2022 Emergency department patient visit Adamaris Jaeger PA-C Facility:[facility] Start: 08-08-2022 End: 08-09-[address] BALDOMERO ELLER . Facility: Start: 06-12-2022 End: 06-12-2022 ambulatory None Provider Facility:[facility] Start: 06-02-2022 End: 06-03-[address] BALDOMERO ELLER . Facility:[facility] Start: 05-18-2022 Encounter for other preprocedural examination DR BALDOMERO ELLER . [facility] Start: 05-17-2022 End: 05-17-[address] BALDOMERO [...] DR ANA LEDESMA Facility:[facility] Start: 03-29-2022 ambulatory [facility] Facility:[facility] Start: 03-28-2022 End: 03-29-[address] BALDOMERO ELLER . Facility:[facility] Start: 10-17-2021 End: 10-18-[address] BALDOMERO ELLER . Facility:[facility] Start: 10-12-2021 End: 10-12-[address] BALDOMERO ELLER . Facility:[facility] Start: 07-18-2021 End: 07-18-2021 Emergency department patient visit [facility] Start: 05-15-2021 End: 05-15-2021 Emergency department patient visit [facility] Procedures Date Procedure Procedure Detail Performing Clinician Start: 05-17-2023 ALL CBC WITH AUTO DIFF Robert Janes DO Work Phone: Start: 05-15-2021 X-ray of right knee Plan of Treatment Date Care Activity Detail Author Start: 05-15-2028 DTaP,Tdap and Td Vaccines (2 - Td or Tdap) DTaP,Tdap and Td Vaccines (2 - Td or Tdap) [facility] Start: 03-05-2024 Adult BMI Screening Adult BMI Screen ing [facility] Start: 03-05-2024 Tobacco Screening Tobacco Screening [facility] Start: 09-26-2023 Screening for Chlamy driss trachomatis Chlamydia Screening [facility] Start: 06-03-2023 End: 06-03-2023 Patient encounter procedure 06/03/2023 2:10 PM EST Routine [facility] [address] [place] [id number] Robert Marrero, DO [address] [place] [address] [facility] Start: 04-17-2023 End: 04-17-2023 ambulatory 04/17/2023 8:30 AM EST Initial [facility] Certified [facility] [place] [address] [facility] [address] [place] [address] [facility]ified [facility] [place] Start: 12-07-2022 Influenza vaccination Influenza Vacc ine [facility] Start: 2022 Screening for malign ant neoplasm of cervix Pap Smear [facility] Start: 07-18-2021 X-ray of left ankle XR ankle LT min 3V* [facility] Start: 07-18-2021 X-ray of left foot XR foot LT min 3V * [facility] Start: 10-08-2019 Adult BMI Follow Up Plan Adult BMI Follow Up Plan [facility] Start: 2013 Depression Screening Depression [facility] Patient Education [facility] Work Phone: Patient referral [facility] Work Phone: Payers Date Payer Category Payer Medicaid [id number] 2001 Unknown [id number] 2.16.84 0.1.120942.3.579.2.593 2001 Unknown [id number] 2.16.84 0.1.321646.3.579.2.593 2001 Unknown [id number] 2.16.84 0.1.334027.3.579.2.593 2001 Unknown [id number] 2.16.84 0.1.070837.3.579.2.593 2001 Unknown [id number] 2.16.84 0.1.787838.3.579.2.593 2001 Unknown [id number] 2.16.84 0.1.165113.3.579.2.593 2001 Unknown [id number] 2.16.84 0.1.749423.3.579.2.593 2001 Unknown [id number] 2.16.84 0.1.601142.3.579.2.593 2001 Unknown [id number] 2.16.84 0.1.882707.3.579.2.593 2001 Unknown [id number] 2.16.84 0.1.002985.3.579.2.593 2001 Unknown [id number] 2.16.84 0.1.779791.3.579.2.593 2001 Unknown [id number] 2.16.8 40.1.772467.3.579.2.718 2001 Unknown [id number] 2.16.8 40.1.859477.3.579.2.718 2001 Unknown [id number] 2.16.8 40.1.599652.3.579.2.718 2001 Unknown [id number] 2.16.8 40.1.141843.3.579.2.718 2001 Unknown [id number] 2.16.8 40.1.661698.3.579.2.718 2001 Unknown [id number] 2.16.8 40.1.368768.3.579.2.718 2001 Unknown [id number] 2.16.8 40.1.406584.3.579.2.718 2001 Unknown [id number] 2.16.8 40.1.142780.3.579.2.718 2001 Unknown [id number] 2.16.8 40.1.701375.3.579.2.718 2001 Unknown [id number] 2.16.8 40.1.640989.3.579.2.718 2001 Unknown [id number] 2.16.8 40.1.735008.3.579.2.718 2001 Unknown [id number] 2.16.8 40.1.159421.3.579.2.6 2001 Unknown [id number] 2.16.8 40.1.763291.3.579.2.6 2001 Unknown [id number] 2.16.8 40.1.185610.3.579.2.1285 2001 Unknown [id number] 2.16.8 40.1.763788.3.579.2.6 2001 Unknown [id number] 2.16.8 40.1.528030.3.579.2.1285 2001 Unknown [id number] 2.16.84 0.1.051977.3.579.2.1258 2001 Unknown [id number] 2.16.84 0.1.019833.3.579.2.1258 2001 Unknown [id number] 2.16.84 0.1.022499.3.579.2.9 2001 Unknown [id number] 2.16.84 0.1.497530.3.579.2.1258 2001 Unknown [id number] 2.16.84 0.1.599595.3.579.2.1258 2001 Unknown [id number] 2.16.84 0.1.804835.3.579.2.1258 2001 Unknown [id number] 2.16.84 0.1.739320.3.579.2.1258 2001 Unknown [id number] 2.16.84 0.1.823183.3.579.2.1258 2001 Unknown [id number] 2.16.84 0.1.844413.3.579.2.1259 2001 Unknown [id number] 2.16.84 0.1.158497.3.579.2.1259 1959 Unknown [id number] Self-pay Self Pay [id number] Social History Date Type Detail Facility Start: 07-18-2021 End: 05-14-2023 Tobacco smoking status NHIS Never smoked tobacco (finding) [facility] Start: 2000 Sex Assigned At Female [facility] History of tobacco use Passive smoker [facility] Start: 08-01-2022 Tobacco use and exposure Smokeless tobacco non-user [facility] Start: 03-05-2023 Alcohol intake Ex-drinker (finding) [facility] Start: 03-05-2023 End: 05-14-2023 History of Social function [facility] Start: 03-05-2023 End: 05-14-2023 Tobacco use panel [facility] Housing Instability Unknown [facility] Start: 08-14-2022 Alcohol Comment social [facility] Start: 2000 Sex Assigned At Not on file [facility] Start: 05-14-2023 Alcohol intake Lifetime non-drinker (finding) [facility] Start: 03-20-2023 [facility] Start: 05-01-2023 Gender identity Identifies as female gender (finding) [facility] Start: 05-01-2023 Sexual orientation Heterosexual (finding) [facility] Clinical Notes 06-12-2022 to 05-26-2023 [...] Keep all follow-up visits. Medicines ? Take brzx-iqi-daowwpy and prescription medicines only as told by [...] be an em (more content not included)... [facility] 05-15-2023 Note Education Materials Obstetrics and [...] uri tea. ? Taking prescription medicine or dluy-nsn-umkhzxe medicine as told by your health care [...] or sour. These include lemonade, uri prabhakar, lemon?gulkana soda, ice water, and sparkling water. Things [...] food. The s (more content not included)... [facility] 05-07-2023 History of Presen t illness Narrative Letter sent to patient via [facility] and also to her My Chart regarding her missed OB intake appointment and also her MICHAEL for her Chlamydia. documented in this encounter [facility] 04-19-2023 Miscellaneous Notes Called patient to reschedule her IOB intake visit. No answer. Left message to call office to reschedule her appointment. documented in this encounter [facility] 04-19-2023 Telephone encounter Note Called patient to reschedule her IOB intake visit. No answer. Left message to call office to reschedule her appointment. [facility] 04-17-2023 Miscellaneous Notes Patient called for her OB intake per phone. No answer. Left message to call office. documented in this encounter [facility] 04-17-2023 Telephone encounter Note Patient called for her OB intake per phone. No answer. Left message to call office. [facility] 04-15-2023 Note Education Materials Gastroenterology Nausea [...] ? Low-calorie sports drinks. ? Eat bland, dgje-xg-aruemf foods in small amounts as you are able, such as: ? Bananas. ? Applesauce. ? Rice. ? Low-fat (lean) meats. ? [place]. ? Crackers. ? Avoid drinking fluids that have a lot of sugar or caffeine in them. This includes energy drinks, sports drinks, and soda. ? Avoid alcohol. ? Avoid spicy or fatty foods. General instructions ? Take wdad-vqo-dhiitqc and prescription medicines only as told by your doctor. ? Drink enough fluid to keep your pee (urine) pale yellow. ? Wash your hands often with soap and water for at least 20 seconds. If you cannot use soap and water, use hand it analyst. ? Make sure that everyone in your [...] doctor about eating and drinking. ? Take xidh-pfe-qpbasgg and prescription medicines only as told by [...] Reviewed: 09/29/2021 Elsevier Patient Education ? [address] [facility] 04-12-2023 Note Patient Education Ma terials [...] these instructions at home: Medicines ? Take klfq-dkv-cvolxbd and prescription medicines only as told by your health care provider. Do not use any prescription, emwr-aki-hpvnylw, or herbal medicines for morning sickness without [...] provider. Document Revised: 11/07/2020 Document Reviewed: 10/17/2020 [email or web address] Patient Education ? [address] [facility] 03-01-2023 Note Education Materials Pulmonary Medicine [...] Follow these instructions at home: ? Take joyz-dbi-kosctbx and prescription medicines only as told by [...] and water are not available, use hand it analyst. ? Avoid contact with people who have [...] is easier to cough up. ? Take ywmh-onl-joxwnpl an (more content not included)... [facility] 02-26-2023 Note Patient Education Ma terials [...] to help relieve symptoms, such as: ? Mzgj-qzf-hjbcido cold medicines. ? Cough suppressants. Coughing is [...] other clear broths. General instructions ? Take pjgh-wni-yhpkhyq and prescription medicines only as told by [...] and water are not available, use hand it analyst. ? Avoid touching your mouth, face, eyes, [...] These symptoms may (more content not included)... [facility] 02-14-2023 Note Patient Education Ma terials [...] elastic wrap to support your hand. ? Nbsi-dvx-qeeskcb medicines to control pain. Follow these instructions [...] or lying down. General instructions ? Take gybn-yfr-eisvrgp and prescription medicines only as told by [...] provider. Document Revised: 07/13/2021 Document Reviewed: 07/13/2021 [email or web address] Patient Education ? 2022 [employer] How to Use Cold Therapy Cold [...] on your pr (more content not included)... [facility] 11-15-2022 Note Education Materials Orthopedics Sciatica [...] by your health care provider. Stretching and vtgtl-zq-srjgfy exercises These exercises warm up your muscles [...] standing, keep y (more content not included)... [facility] 08-11-2022 Note Education Materials Obstetrics and [...] these instructions at home: Medicines ? Take npgh-rrz-keppqux and prescription medicines only as told by [...] Where to find more information ? [employer] [place]: acog.org ? U.[place]. Department of Health and Human Services Office of Women's Health: hrsa.gov/xdtsla-okzhjq-elihzi Contact a doctor if: ? You have [...] ? Text the Crisis Text Line at 606483. Summary ? A miscarriage is the loss [...] provider. Document Revised: 09/23/2020 Document Reviewed: 09/23/2020 [email or web address] Patient Education ? [address] [facility] 06-12-2022 Note Patient Education Ma terials [...] these instructions at home: Medicines ? Take uumb-oxy-hznmcig and prescription medicines only as told by [...] things can cause a cough. ? Take qote-trw-kxcdzji and prescription medicines only as told by [...] provider. Document Revised: 05/13/2020 Document Reviewed: 04/13/2019 [email or web address] Patient Education ? 2021 [employer]. Infectious Disease Pharyngitis Pharyngitis is a sore [...] these instructions at home: Medicines ? Take wcec-qfm-yehwrqy and prescription medicines only as told by your doctor. ? If you were prescribed an antibiotic medicine, take it as told by your doctor. Do not stop taking the antibiotic even if you start to feel better. ? Use throat loze (more content not included)... 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 Relationship Specialty Start Date End Date Services, [facility] [address] [place], [place] PCP - General Family Medicine 08/11/18 Laboratory Engineer Relationship Specialty Start Date End [facility] [address] [place] PCP - General Family Medicine 08/11/18 Laboratory Engineer Relationship Specialty Start Date End Date [facility] [address] [place] PCP - General Family Medicine 08/11/18 Goals (unrecognized section and content) Goals may be documented in a n alternate sectionNot on filedocumented as of this encounterNot on filedocumented as of this encounterNot on filedocumented as of this encounterNot on filedocumented as of this encounter INFORMATION SOURCE (unrecogn ized section and content) DATE CREATED AUTHOR 07/27/2021 [facility] DATE CREATED AUTHOR AUTHOR'S ORGANIZ ATION 08/16/2022 [facility] DATE CREATED AUTHOR AUTHOR'S ORGANIZ ATION 06/08/2023 [facility] DATE CREATED AUTHOR AUTHOR'S ORGANIZ ATION 09/05/2023 [facility] DATE CREATED AUTHOR AUTHOR'S ORGANIZ ATION 10/30/2023 [facility] FOR RECORDS PERTAINING TO PATIENTS WHO ARE [...] BE BASED ON THE PRIMARY CLINICAL RECORDS. [employer] provides no warranty or guarantee of the accuracy or completeness of information in this document.
== END 2023-11-13 21:45 | disposition home or self-care (01) ==
LOC: LAB 21:44
PROVIDERS: Visit Provider Obstetrics & Gynecology
DX: Z34.93 Encounter for supervision of normal pregnancy, unspecified, third trimester (principal)
CPT/HCPCS: 36415; 87081; 87150

== ENCOUNTER 2023-11-25 11:26 | Outpatient (OUT) | payer OTHER, SELFPAY ==
--- NOTE | 2023-11-25 11:28 | US_ITS ---
[address] [address] Patient Name: TEE DESAI MRN: [id number] date: 2000 Sex: F Assigned Patient Location: [facility] Current Patient Location: [facility] Accession/Order Number: [id number] Exam Date: 11/25/2023 11:30 Report Date: 11/25/2023 16:36 At the request of: ELSI LOZANO Procedure: US OB growth EXAMINATION: US OB growth HISTORY: Excessive growth O36.60X0 COMPARISON: No relevant comparison available. FINDINGS: Heart Rate: 134 bpm Amniotic Fluid Volume: 10 cm Number: 1 Position: CEPHALIC BIOMETRY: BPD: 9.26 cm; 37 weeks 4 days; 69.10 % HC: 33.37 cm; 38 weeks 1 day; 37.60 % AC: 32.41 cm; 36 weeks 2 days; 27.10 % FL: 7.30 cm; 37 weeks 3 days; 42.40 % EFW: 3052.89 g; 39.60 %, 6 lbs. 12 oz. FL/AC: 22.52 FL/BPD: 78.83 HC/AC: 1.03 GESTATIONAL AGE: Age by EDC: 37 weeks 5 days MONIQUE by EDC: 2023-12-11 Age by US: 37 weeks 3 days MONIQUE by US: 2023-12-13 US/US OB growth IMPRESSION: Normal interval growth Electronically authenticated by: CHRISTIAN KATE Date: 11/25/2023 16:36
--- OUTSIDE RECORDS SUMMARY | 2023-11-25 11:45 | XMS_ITS | CCD ---
Author Organization [facility] Care Team Providers Care Side Show Entertainer Name Role Phone NON STAFF Primary Care Provider LAURA Kraft Emergency Provider NICOLE Ricci Emergency Provider DAPHNIE ., DR ALEXANDRE Attending Unavailabl e KARASIK ., DR ALEXANDRE Admitting Unavailabl [facility] Unava ilable KARASIK ., DR ALEXANDRE Consulting Unavailabl e LAVINIA, DR CHRISTIAN Doyle Consulting Unavailable KARASIK ., DR ALEXANDRE Consulting Unavailabl e KARASIK ., DR ALEXANDRE Attending Unavailabl e [facility] Unava ilable KARASIK ., DR ALEXANDRE Admitting Unavailabl e ANGELA SCOTT Consulting Unavailable DINA, DR ANA Dennis Attending Unavailable DINA, DR ANA Dennis Admitting [facility] Unava ilable DINA, DR ANA Dennis Consulting Unavailable KILO ., MR CUADRA Consulting Unavailable KARASIK ., DR ALEXANDRE Attending Unavailabl e [facility] Unava ilable KARASIK ., DR ALEXANDRE Admitting Unavailabl e KARASIK ., DR ALEXANDRE Attending Unavailabl e [facility] Unava ilable KARASIK ., DR ALEXANDRE Admitting Unavailabl e KARASIK ., DR ALEXANDRE Consulting Unavailabl e JOANNE HUDSON Consulting Unavailable GAVIN ATKINS Consulting Unavailable [facility] Unava ilable KARASIK ., DR ALEXANDRE Attending Unavailabl e KARASIK ., DR ALEXANDRE Admitting Unavailabl e KARASIK ., DR ALEXANRDE Consulting Unavailabl e KARASIK ., DR ALEXANDRE Attending Unavailabl e KARASIK ., DR ALEXANDRE Admitting Unavailabl e KARASIK ., DR ALEXANDRE Consulting Unavailabl e KARASIK ., DR ALEXANDRE Attending Unavailabl e KARASIK ., DR ALEXANDRE Admitting Unavailabl e WEST, DR CHRISTIAN Doyle Consulting Unavailable KARASIK ., DR ALEXANDRE Attending Unavailabl e [facility] Primary Care Unava ilable KARASIK ., DR ALEXANDRE Admitting Unavailabl e KARASIK ., DR ALEXANDRE Consulting Unavailabl e ZIEBER, ANGELA Dennis Consulting Unavailable KARASIK ., DR ALEXANDRE Attending Unavailabl e KARASIK ., DR ALEXANDRE Admitting Unavailabl e [facility] Primary Care Unava ilable KARASIK ., DR ALEXANDRE Consulting Unavailabl e KARASIK ., DR ALEXANDRE Consulting Unavailabl e KARASIK ., DR ALEXANDRE Attending Unavailabl e [facility] Primary [facility] Unava ilable KARASIK ., DR ALEXANDRE Admitting Unavailabl e WEST, DR CHRISTIAN Doyle Consulting Unavailable REQUEST, DR AMBER LISTED Consulting [facility] Primary Care Provider Unavailable Primary Care [...] Admitting Unavailable Sharma, Nelson Attending Unavailable SERVICES, [facility] Unava ilable KENDRA EDWARDS Attending Unavailable SERVICES, [facility] Unava ilable SYMONE LOZOYA Attending Unavailable RAUL HAMMOND Admitting Unavailable RAUL HAMMOND Attending Unavailable SERVICES, [facility] Unava ilable SERVICES, [facility] Unava ilable FRIES, ZEKE S Admitting Unavailable FRIES, ZEKE S Attending Unavailable SERVICES, [facility] Unava ilable JANES, ROBERT Attending Unavailable JANES, ROBERT Attending Unavailable TAYO, DAPHNIE Attending Unavailable JANES, ROBERT Attending Unavailable JANES, ROBERT Attending Unavailable JANES, ROBERT Attending Unavailable JANES, ROBERT Attending Unavailable JANES, ROBERT Attending Unavailable TAYO, DAPHNIE Attending Unavailable JANES, ROBERT Attending Unavailable JANES, ROBERT Attending Unavailable Allergies Allergy Classification Reported Allergen(s) Allergy Type Date of Onset Reaction(s) Facility (1 source) [facility] Drug Allergy [facility] Repository (2 sources) Azithromycin; Translations: [AZITHROMYCIN] Drug Allergy 2 [facility] Repository (5 sources) Adhesive agent; Translations: [ADHESIVE] Propensity to adverse reactions to drug 3 [facility] (6 sources) Azithromycin Drug Allergy [address] [facility] (2 sources) Macrolides And Ketolides Drug Allergy 4 Unknown [facility] Healthcare (2 sources) Wound Dressing Adhesive Drug Allergy 4 [facility] Healthcare (1 source) Adhesive bandage; Translations: [Adhesive Bandage] Propensity to adverse reactions (disorder) [facility] Repository (1 source) Azithromycin; Translations: [Zithromax] Drug Allergy [facility] Repository (1 source) metroNIDAZOLE; Translations: [METRONIDAZOLE] [facility] Medications Current Medications Medication Drug Class(es) Dates Sig (Normalized) Sig (Original) [id number] 200 actuat albuterol 0.09 mg/actuat metered dose [...] 09-04-2023 Bilirubin Ql (U) Negative Normal NEG [facility] Comment on above: Performed By: #### C BARAK CMP, 3040-3 #### [facility] ([id number]) [address] [place] [address] 47777 BLOOD/HGB Negative Normal NEG [facility] Comment on above: Performed By: #### C BARAK CMP, 3040-3 #### [facility] ([id number]) [address] [place] [address] 66918 Color (U) YELLOW Normal YELLOW [facility] Comment on above: Performed By: #### C BARAK CMP, 3040-3 #### [facility] ([id number]) [address] [place] [address] 87774 Glucose Ql (U) Negative Normal NEG [facility] Comment on above: Performed By: #### C HILLARY CANCINO, 0-3 #### [facility] ([id number]) [address] [place] [address] 60520 Ketones Ql (U) Negative Normal NEG [facility] Comment on above: Performed By: #### Shakeel CANCNIO CMP, 3039-3 #### [facility] ([id number]) [address] [place] [address] 32702 Leukocyte esterase Test strip Ql (U) Trace Abnormal NEG [facility] Comment on above: Performed By: #### Shakeel CANCINO CMP, 3039-3 #### [facility] ([id number]) [address] [place] [address] 69610 Nitrite Ql (U) Negative Normal NEG [facility] Comment on above: Performed By: #### Shakeel CANCINO [facility], 3039-3 #### [facility] ([id number]) [address] [place] [address] 15660 pH (U) 6.5 [pH] Normal 5.0-8.5 [facility] Comment on above: Performed By: #### Shakeel CANCINO, CMP, 3039-3 #### [facility] ([id number]) [address] [place] [address] 82567 Protein Ql (U) Negative Normal NEG [facility] Comment on above: Performed By: #### Shakeel CANCINO, CMP, 3039-3 #### [facility] ([id number]) [address] [place] [address] 67917 R.B.CELLS 0 /hpf Normal 0-5 [facility] Comment on above: Performed By: #### Shakeel CANCINO, CMP, 0-3 #### [facility] ([id number]) [address] [place] [address] 87349 Specific gravity (U) [Rel density] 1.020 Normal 1.003-1.035 [facility] Comment on above: Performed By: #### Shakeel CANCINO CMP, 3040-3 #### [facility] ([id number]) [address] [place] [address] 37136 SQUAMOUS EPITHELIUM 5 /hpf Normal 0-5 [facility] Comment on above: Performed By: #### Shakeel CANCINO CMP, 0-3 #### [facility] ([id number]) [address] [place] [address] 81970 TURBIDITY HAZY Abnormal CLEAR [facility] Comment on above: Performed By: #### Shakeel CANCINO CMP, 3039-3 #### [facility] ([id number]) [address] [place] [address] 60419 Urobilinogen Qn (U) 1.0 {Pepito'U}/dL Normal <1.1 [facility] Comment on above: Performed By: #### Shakeel CANCINO CMP, 3039-3 #### [facility] ([id number]) [address] [place] [address] 60623 W.B.CELLS 2 /hpf Normal 0-5 [facility] Comment on above: Performed By: #### Shakeel CANCINO [facility], 0-3 #### [facility] ([id number]) [address] [place] [address] 32444 COMPLETE BLOOD COUNTon 07-29 Erythrocyte distribution width (RBC) [Ratio] 13.5 % Normal 11.5-15.0 [facility] Comment on above: Performed By: #### Shakeel BC, CMP #### [facility] ([id number]) [address] [place] [address] 05176 Hematocrit (Bld) [Volume fraction] 32.1 % Low 35-47 [facility] Comment on above: Performed By: #### Shakeel BC, CMP #### [facility] ([id number]) [address] [place] [address] 65566 Hemoglobin (Bld) [Mass/Vol] 11.0 g/dL Low 11.7-15.5 [facility] Comment on above: Performed By: #### C BC, CMP #### [facility] ([id number]) [address] [place] [address] 91721 MCH (RBC) [Entitic mass] 28.8 pg Normal 27-34 [facility] Comment on above: Performed By: #### C BC, CMP #### [facility] ([id number]) [address] [place] [address] 41507 MCHC (RBC) [Mass/Vol] 34.3 g/dL Normal 32-36 [facility] Comment on above: Performed By: #### C BC, CMP #### [facility] ([id number]) [address] [place] [address] 11177 MCV (RBC) [Entitic vol] 84 fL Normal 80-100 [facility] Comment on above: Performed By: #### C BC, CMP #### [facility] ([id number]) [address] [place] [address] 97056 Platelet mean volume (Bld) [Entitic vol] 8.9 fL Normal 7-12 [facility] Comment on above: Performed By: #### C BC, CMP #### [facility] ([id number]) [address] [place] [address] 12829 Platelets (Bld) [#/Vol] 354 10*3/uL Normal 150-450 [facility] Comment on above: Performed By: #### C BC, CMP #### [facility] ([id number]) [address] [place] [address] 31882 RBC COUNT 3.82 X10E12/L Normal 3.80-5.20 [facility] Comment on above: Performed By: #### C BC, CMP #### [facility] ([id number]) [address] [place] [address] 09621 WBC (Bld) [#/Vol] 12.0 10*3/uL High 4.0-11.0 [facility] Comment on above: Performed By: #### C BC, CMP #### [facility] ([id number]) [address] [place] [address] 84704 COMPREHENSIVE METABOLIC PANE Alex 07-30-2023 Albumin [Mass/Vol] 3.0 g/dL Low 3.2-5.3 [facility] Comment on above: Performed By: #### C BC, CMP #### [facility] ([id number]) [address] [place] [address] 15591 ALP [Catalytic activity/Vol] 67 U/L Normal 39-130 [facility] Comment on above: Performed By: #### C BC, CMP #### [facility] ([id number]) [address] [place] [address] 77461 ALT [Catalytic activity/Vol] 10 U/L Normal 0-31 [facility] Comment on above: Performed By: #### C BC, CMP #### [facility] ([id number]) [address] [place] [address] 88880 Anion gap [Moles/Vol] 7 mmol/L Normal 5-15 [facility] Comment on above: Performed By: #### C BC, CMP #### [facility] ([id number]) [address] [place] [address] 34773 AST [Catalytic activity/Vol] 12 U/L Normal 0-41 [facility] Comment on above: Performed By: #### C BC, CMP #### [facility] ([id number]) [address] [place] [address] 29558 Bilirubin [Mass/Vol] 0.5 mg/dL Normal 0.3-1.2 [facility] Comment on above: Performed By: #### C BC, CMP #### [facility] ([id number]) [address] [place] [address] 66957 Calcium [Mass/Vol] 8.1 mg/dL Low 8.5-10.5 [facility] Comment on above: Performed By: #### C BC, CMP #### [facility] ([id number]) [address] [place] [address] 33453 Chloride [Moles/Vol] 108 mmol/L Normal 98-109 [facility] Comment on above: Performed By: #### C BC, CMP #### [facility] ([id number]) [address] [place] [address] 90843 CO2 [Moles/Vol] 19 mmol/L Low 22-32 [facility] Comment on above: Performed By: #### C BC, CMP #### [facility] ([id number]) [address] [place] [address] 16954 Creatinine [Mass/Vol] 0.52 mg/dL Normal 0.40-1.00 [facility] Comment on above: Result Comment: METH OD TRACEABLE TO IDMS STANDARD Performed By: #### C JASMIN, CMP #### [facility] ([id number]) [address] [place] [address] [place] [address] eGFR (CKD-EPI) NON-RACE DEPENDENT >90 Normal >59 [facility] Comment on above: Result Comment: Reported eGFR is based on the CKD-EPI 2020 equation that does not use a race coefficient. Performed By: #### C BC, CMP #### [facility] ([id number]) [address] [place] [address] 83793 Glucose [Mass/Vol] 79 mg/dL Normal 65-99 [facility] Comment on above: Performed By: #### C BC, CMP #### [facility] ([id number]) [address] [place] [address] 66714 Potassium [Moles/Vol] 3.9 mmol/L Normal 3.5-5.0 [facility] Comment on above: Performed By: #### C BC, CMP #### [facility] ([id number]) [address] [place] [address] 18819 Protein [Mass/Vol] 6.1 g/dL Normal 6.0-8.0 [facility] Comment on above: Performed By: #### C BC, CMP #### [facility] ([id number]) [address] [place] [address] 55919 Sodium [Moles/Vol] 134 mmol/L Normal 134-146 [facility] Comment on above: Performed By: #### C BC, CMP #### [facility] ([id number]) [address] [place] [address] 17450 Urea nitrogen [Mass/Vol] 6 mg/dL Normal 5-23 [facility] Comment on above: Performed By: #### C BC, CMP #### [facility] ([id number]) [address] [place] [address] 73617 DRUG SCREEN, URINEon 024 AMPHETAMINE/METHAMP Negative Normal NEG [facility] Comment on above: Result Comment: AMPH /METH screening cut off = 1000 ng/mL Performed By: #### D FLOWER #### [facility] ([id number]) [address] [place] [address] 03024 BARBITURATES Negative Normal NEG [facility] Comment on above: Result Comment: Deirdre iturates screening cut off value = 200 ng/mL Performed By: #### D FLOWER #### [facility] ([id number]) [address] [place] [address] 07724 BENZODIAZEPINES Negative Normal NEG [facility] Comment on above: Result Comment: Vinny odiazepines screening cut off value = 200 ng/mL Performed By: #### D FLOWER #### [facility] ([id number]) [address] [place] [address] 93540 CANNABINOIDS Negative Normal NEG [facility] Comment on above: Result Comment: Lavern abinoids/THC screening cut off value = 50 ng/mL Performed By: #### D FLOWER #### [facility] ([id number]) [address] [place] [address] 96165 COCAINE METABOLITE Negative Normal NEG [facility] Comment on above: Result Comment: Coca ine screening cut off value = 300 ng/mL Performed By: #### D FLOWER #### [facility] ([id number]) [address] [place] [address] 89447 ECSTASY Negative Normal NEG [facility] Comment on above: Result Comment: Ecst asy screening cut off value = 500 ng/mL This report is intended for use in clinical monitoring or management of patients. Performed By: #### D FLOWER #### [facility] ([id number]) [address] [place] [address] 70408 METHADONE Negative Normal NEG [facility] Comment on above: Result Comment: Meth adone screening cut off value = 300 ng/mL. Performed By: #### D FLOWER #### [facility] ([id number]) [address] [place] [address] 56748 OPIATES Negative Normal NEG [facility] Comment on above: Result Comment: Opia bernadette screening cut off value = 300 ng/mL NOTE: This test is used for the detection of codeine, hydrocodone (>1000 ng/mL), morphine and hydromorphone (>900 ng/mL) in urine. Performed By: #### D FLOWER #### [facility] ([id number]) [address] [place] [address] 40526 OXYCODONE Negative Normal NEG [facility] Comment on above: Result Comment: Oxyc odone screening cut off value = 300 ng/mL NOTE: This test is used for the detection of oxycodone and oxymorphone in urine. Performed By: #### D FLOWER #### [facility] ([id number]) [address] [place] [address] 67444 PHENCYCLIDINE Negative Normal NEG [facility] Comment on above: Result Comment: Phen cyclidine screening cut off value = 25 ng/mL Performed By: #### D FLOWER #### [facility] ([id number]) [address] [place] [address] 00653 URINALYSISon 07-30-2023 Bilirubin Ql (U) Negative Normal NEG [facility] Comment on above: Performed By: #### C BCA, CMP, 3040-3 #### [facility] ([id number]) [address] [place] [address] [place] [address] BLOOD/HGB Negative Normal NEG [facility] Comment on above: Performed By: #### C BCA, CMP, 3040-3 #### [facility] ([id number]) [address] [place] [address] 17611 Color (U) YELLOW Normal YELLOW [facility] Comment on above: Performed By: #### C BCA, CMP, 3040-3 #### [facility] ([id number]) [address] [place] [address] [place] [address] Glucose Ql (U) Negative Normal NEG [facility] Comment on above: Performed By: #### C BCA, CMP, 3040-3 #### [facility] ([id number]) [address] [place] [address] 74674 Ketones Ql (U) Negative Normal NEG [facility] Comment on above: Performed By: #### C BCA, CMP, 3040-3 #### [facility] ([id number]) [address] [place] [address] Leukocyte esterase Test strip Ql (U) Negative Normal NEG [facility] Comment on above: Performed By: #### Shakeel CANCINO CMP, 3039-3 #### [facility] ([id number]) [address] [place] [address] 81373 Nitrite Ql (U) Negative Normal NEG [facility] Comment on above: Performed By: #### Shakeel CANCINO CMP, 3039-3 #### [facility] ([id number]) [address] [place] [address] 58201 pH (U) 7.0 [pH] Normal 5.0-8.5 [facility] Comment on above: Performed By: #### Shakeel CANCINO CMP, 3039-3 #### [facility] ([id number]) [address] [place] [address] 17473 Protein Ql (U) Negative Normal NEG [facility] Comment on above: Performed By: #### Shakeel CANCINO CMP, 3 #### [facility] ([id number]) [address] [place] [address] 24304 R.B.CELLS 0 to 1 Normal 0-5 [facility] Comment on above: Performed By: #### Shakeel CANCINO CMP, 3039-3 #### [facility] ([id number]) [address] [place] [address] 31395 Specific gravity (U) [Rel density] 1.020 Normal 1.003-1.035 [facility] Comment on above: Performed By: #### Shakeel CANCINO CMP, 3039-3 #### [facility] ([id number]) [address] [place] [address] 63462 SQUAMOUS EPITHELIUM 2 /hpf Normal 0-5 [facility] Comment on above: Performed By: #### Shakeel CANCINO CMP, 3039-3 #### [facility] ([id number]) [address] [place] [address] 40512 TURBIDITY CLOUDY Abnormal CLEAR [facility] Comment on above: Performed By: #### Shakeel CANCINO CMP, 3040-3 #### [facility] ([id number]) [address] [place] [address] 96041 Urobilinogen Qn (U) 0.2 {Pepito'U}/dL Normal <1.1 [facility] Comment on above: Performed By: #### Shakeel CANCINO CMP, 3039-3 #### [facility] ([id number]) [address] [place] [address] 41780 W.B.CELLS 1 /hpf Normal 0-5 [facility] Comment on above: Performed By: #### Shakeel CANCINO CMP, 3039-3 #### [facility] ([id number]) [address] [place] [address] 68184 CBC AND AUTO DIFFon 07-11-19 24 ABSOLUTE BASOPHIL 0.0 X10E9/L Normal 0.0-0.2 [facility] Comment on above: Performed By: #### Shakeel CANCINO CMP, 3039-3 #### [facility] ([id number]) [address] [place] [address] 12223 ABSOLUTE NEUTROPHIL 9.7 X10E9/L High 1.5-6.6 [facility] Comment on above: Performed By: #### Shakeel CANCINO CMP, 3039-3 #### [facility] ([id number]) [address] [place] [address] 87544 Basophils/100 WBC (Bld) 0.2 % Normal [facility] Comment on above: Performed By: #### Shakeel CANCINO CMP, 0-3 #### [facility] ([id number]) [address] [place] [address] 56508 Eosinophils (Bld) [#/Vol] 0.1 10*3/uL Normal 0.0-0.4 [facility] Comment on above: Performed By: #### C HILLARY CANCINO, 3039-3 #### [facility] ([id number]) [address] [place] [address] 94555 Eosinophils/100 WBC (Bld) 0.5 % Normal [facility] Comment on above: Performed By: #### Shakeel CANCINO CMP, 3 #### [facility] ([id number]) [address] [place] [address] 70993 Erythrocyte distribution width (RBC) [Ratio] 13.4 % Normal 11.5-15.0 [facility] Comment on above: Performed By: #### Shakeel CANCINO CMP, 3 #### [facility] ([id number]) [address] [place] [address] 09546 Hematocrit (Bld) [Volume fraction] 37.1 % Normal 35-47 [facility] Comment on above: Performed By: #### Shakeel CANCINO CMP, 3 #### [facility] ([id number]) [address] [place] [address] 07687 Hemoglobin (Bld) [Mass/Vol] 12.6 g/dL Normal 11.7-15.5 [facility] Comment on above: Performed By: #### Shakeel CANCINO CMP, 3 #### [facility] ([id number]) [address] [place] [address] 56526 Lymphocytes (Bld) [#/Vol] 3.1 10*3/uL Normal 1.0-3.5 [facility] Comment on above: Performed By: #### Shakeel CANCINO CMP, 3 #### [facility] ([id number]) [address] [place] [address] 19906 Lymphocytes/100 WBC (Bld) 22.3 % Normal [facility] Comment on above: Performed By: #### Shakeel CANCINO CMP, 3039-3 #### [facility] ([id number]) [address] [place] [address] 49626 MCH (RBC) [Entitic mass] 28.3 pg Normal 27-34 [facility] Comment on above: Performed By: #### C BARAK, CMP, 3039-3 #### [facility] ([id number]) [address] [place] [address] 52910 MCHC (RBC) [Mass/Vol] 33.9 g/dL Normal 32-36 [facility] Comment on above: Performed By: #### Shakeel CANCINO, CMP, 3 #### [facility] ([id number]) [address] [place] [address] 88469 MCV (RBC) [Entitic vol] 84 fL Normal 80-100 [facility] Comment on above: Performed By: #### Shakeel CANCINO, CMP, 3 #### [facility] ([id number]) [address] [place] [address] 64785 Monocytes (Bld) [#/Vol] 1.1 10*3/uL High 0-0.9 [facility] Comment on above: Performed By: #### Shakeel CANCINO, CMP, 3039-06 #### [facility] ([id number]) [address] [place] [address] 52338 Monocytes/100 WBC (Bld) 8.0 % Normal [facility] Comment on above: Performed By: #### Shakeel CANCINO, CMP, 3039-06 #### [facility] ([id number]) [address] [place] [address] 91100 Neutrophils/100 WBC (Bld) 69.0 % Normal [facility] Comment on above: Performed By: #### Shakeel CANCINO, CMP, 3039-3 #### [facility] ([id number]) [address] [place] [address] 59628 Platelet mean volume (Bld) [Entitic vol] 8.3 fL Normal 7-12 [facility] Comment on above: Performed By: #### Shakeel CANCINO, CMP, 0-3 #### [facility] ([id number]) [address] [place] [address] 60031 Platelets (Bld) [#/Vol] 380 10*3/uL Normal 150-450 [facility] Comment on above: Performed By: #### C BARAK, CMP, 3039-3 #### [facility] ([id number]) [address] [place] [address] 71789 RBC COUNT 4.43 X10E12/L Normal 3.80-5.20 [facility] Comment on above: Performed By: #### Shakeel CANCINO, CMP, 3039-3 #### [facility] ([id number]) [address] [place] [address] 42204 WBC (Bld) [#/Vol] 14.0 10*3/uL High 4.0-11.0 [facility] Comment on above: Performed By: #### Shakeel CANCINO, CMP, 3039-3 #### [facility] ([id number]) [address] [place] [address] 37584 COMPREHENSIVE METABOLIC PANE Alex 07-11-2023 Albumin [Mass/Vol] 3.4 g/dL Normal 3.2-5.3 [facility] Comment on above: Performed By: #### Shakeel BCA, CMP, 0-3 #### [facility] ([id number]) [address] [place] [address] 88835 ALP [Catalytic activity/Vol] 65 U/L Normal 39-130 [facility] Comment on above: Performed By: #### Shakeel BCA, CMP, 3039-3 #### [facility] ([id number]) [address] [place] [address] 23180 ALT [Catalytic activity/Vol] 13 U/L Normal 0-31 [facility] Comment on above: Performed By: #### C HILLARY CANCINO, 3039-3 #### [facility] ([id number]) [address] [place] [address] 62720 Anion gap [Moles/Vol] 4 mmol/L Low 5-15 [facility] Comment on above: Performed By: #### Shakeel CANCINO CMP, 3039-3 #### [facility] ([id number]) [address] [place] [address] 61902 AST [Catalytic activity/Vol] 14 U/L Normal 0-41 [facility] Comment on above: Performed By: #### Shakeel CANCINO CMP, 3039-06 #### [facility] ([id number]) [address] [place] [address] 81914 Bilirubin [Mass/Vol] 0.5 mg/dL Normal 0.3-1.2 [facility] Comment on above: Performed By: #### Shakeel CANCINO CMP, 3 #### [facility] ([id number]) [address] [place] [address] 68151 Calcium [Mass/Vol] 8.2 mg/dL Low 8.5-10.5 [facility] Comment on above: Performed By: #### Shakeel CANCINO CMP, 3039-06 #### [facility] ([id number]) [address] [place] [address] 63583 Chloride [Moles/Vol] 107 mmol/L Normal 98-109 [facility] Comment on above: Performed By: #### Shakeel CANCINO CMP, 3 #### [facility] ([id number]) [address] [place] [address] 96699 CO2 [Moles/Vol] 20 mmol/L Low 22-32 [facility] Comment on above: Performed By: #### Shakeel CANCINO CMP, 3039-3 #### [facility] ([id number]) [address] [place] [address] 17950 Creatinine [Mass/Vol] 0.59 mg/dL Normal 0.40-1.00 [facility] Comment on above: Result Comment: METH OD TRACEABLE TO IDMS STANDARD Performed By: #### C HILLARY CANCINO, 3 #### [facility] ([id number]) [address] [place] [address] 22038 eGFR (CKD-EPI) NON-RACE DEPENDENT >90 Normal >59 [facility] Comment on above: Result Comment: Reported eGFR is based on the CKD-EPI 2020 equation that does not use a race coefficient. Performed By: #### C HILLARY CANCINO, 3039-06 #### [facility] ([id number]) [address] [place] [address] 95769 Glucose [Mass/Vol] 91 mg/dL Normal 65-99 [facility] Comment on above: Performed By: #### C HILLARY CANCINO, 3039-06 #### [facility] ([id number]) [address] [place] [address] 39535 Potassium [Moles/Vol] 3.9 mmol/L Normal 3.5-5.0 [facility] Comment on above: Performed By: #### Shakeel CANCINO CMP, 3039-06 #### [facility] ([id number]) [address] [place] [address] 61166 Protein [Mass/Vol] 7.1 g/dL Normal 6.0-8.0 [facility] Comment on above: Performed By: #### C HILLARY CANCINO, 3039-06 #### [facility] ([id number]) [address] [place] [address] 92360 Sodium [Moles/Vol] 131 mmol/L Low 134-146 [facility] Comment on above: Performed By: #### C HILLARY CANCINO, 3040-3 #### [facility] ([id number]) [address] [place] [address] Urea nitrogen [Mass/Vol] 5 mg/dL Normal 5-23 [facility] Comment on above: Performed By: #### C BCA, CMP, 3040-3 #### [facility] ([id number]) [address] [place] [address] LIPASEon 07-11-2023 Lipase [Catalytic activity/Vol] 28 U/L Normal 17-40 [facility] Comment on above: Performed By: #### C BCA, CMP, 3040-3 #### [facility] ([id number]) [address] [place] [address] SARS/FLU A+B/RSV by NAAT/Mol ecularon 07-11-2023 SARS/FLU [...] operators who are performing tests using either GeneFanGager (MyBrandz) DX or DOOMORO systems and is limited to laboratories that [...] repeat. Fact Sheet for Healthcare Providers: https://www.fda.gov/ media/446619/downloa d Fact Sheet for Patients: https://www.fda.gov/ media/470968/downloa d Normal [facility] Comment on above: Performed By: #### C OVFLR #### [facility] ([id number]) [address] [place] [address] 33080 URINE CULTUREon 07-11-2023 Bacteria identified Cx Nom (U) CULTURE RESULTS 10-50,000 ORGANISMS/mL NORMAL UROGENITAL JONNY Normal [facility] Comment on above: Performed By: #### 6 30-4 #### [facility] ([id number]) [address] [place] [address], [address] [place] [address] URN MACROSCOPIC NURon 2023 BILIRUBIN NEHA Negative Normal NEG [facility] Comment on above: Performed By: #### N UM #### [facility] ([id number]) [address] [place] [address] 87823 BLOOD/HGB NEHA Negative Normal NEG [facility] Comment on above: Performed By: #### N UM #### [facility] ([id number]) [address] [place] [address] 59450 GLUCOSE NEHA Negative Normal NEG [facility] Comment on above: Performed By: #### N UM #### [facility] ([id number]) [address] [place] [address] 22952 KETONES NEHA 40 mg/dL Abnormal NEG [facility] Comment on above: Performed By: #### N UM #### [facility] ([id number]) [address] [place] [address] 26102 LEUKOCYTE ESTERASE NEHA Negative Normal NEG [facility] Comment on above: Performed By: #### N UM #### [facility] ([id number]) [address] [place] [address] [place] [address] NITRITE NEHA Negative Normal NEG [facility] Comment on above: Performed By: #### N UM #### [facility] ([id number]) [address] [place] [address] 13118 PH NEHA 8.0 Normal 5.0-8.5 [facility] Comment on above: Performed By: #### N UM #### [facility] ([id number]) [address] [place] [address] 25868 PROTEIN NEHA Trace Abnormal NEG [facility] Comment on above: Performed By: #### N UM #### [facility] ([id number]) [address] [place] [address] 01433 SPECIFIC GRAVITY NEHA 1.020 Normal 1.003-1.035 [facility] Comment on above: Performed By: #### N UM #### [facility] ([id number]) [address] [place] [address] [place] [address] UROBILINOGEN NEHA 1.0 eu/dL Normal <1.1 [facility] Comment on above: Performed By: #### N UM #### [facility] ([id number]) [address] [place] [address] 67636 URN MACROSCOPIC NURon 2023 BILIRUBIN NEHA Negative Normal NEG [facility] Comment on above: Performed By: #### N UM #### [facility] ([id number]) [address] [place] [address] [place] [address] BLOOD/HGB NEHA Negative Normal NEG [facility] Comment on above: Performed By: #### N UM #### [facility] ([id number]) [address] [place] [address] [place] [address] GLUCOSE NEHA Negative Normal NEG [facility] Comment on above: Performed By: #### N UM #### [facility] ([id number]) [address] [place] [address] [place] [address] KETONES NEHA Negative Normal NEG [facility] Comment on above: Performed By: #### N UM #### [facility] ([id number]) [address] [place] [address] 82956 LEUKOCYTE ESTERASE NEHA Trace Abnormal NEG [facility] Comment on above: Performed By: #### N UM #### [facility] ([id number]) [address] [place] [address] [place] [address] NITRITE NEHA Negative Normal NEG [facility] Comment on above: Performed By: #### N UM #### [facility] ([id number]) [address] [place] [address] 34823 PH NEHA 7.5 Normal 5.0-8.5 [facility] Comment on above: Performed By: #### N UM #### [facility] ([id number]) [address] [place] [address] [place] [address] PROTEIN NEHA Negative Normal NEG [facility] Comment on above: Performed By: #### N UM #### [facility] ([id number]) [address] [place] [address] 29515 SPECIFIC GRAVITY NEHA 1.025 Normal 1.003-1.035 [facility] Comment on above: Performed By: #### N UM #### [facility] ([id number]) [address] [place] [address] [place] [address] UROBILINOGEN NEHA 0.2 eu/dL Normal <1.1 [facility] Comment on above: Performed By: #### N UM #### [facility] ([id number]) [address] [place] [address], [place] [address] Coding Summaryon 05-31-2023 Coding Summary HTMLBase 64 LgduypepELn6pDr+PGhl YWQ+ET4DTUCgA50bqIFu rW3qT5TTMUjMScegZBNW ZGkXDyZeokLjYU4pmFCj ZXJu IC8+QP2eXMSwFkmcyMUv d9V8oWI4Z73eyf1cEMce qMR0EXSgPhUghwtnr7vf fFo8ROhpNvwmHoPu HKMjwS49TXS2fC98Vy04 aYCpwXEmo8patTv0RhMd VTXdCPO5aMxsQNjuk1Jn LKWdV48taZGrd5U0 IGNvbGxhcHNlOyBlbXB0 mG1vQGqcllanl9qseyvj Pjc9od49mQKcw4D3qLH8 N5JekpB6OLAauIQg UuwsaEGPmO7rbjcul8ar mcmqBaSsWNXoZXw5TUi1 YORpuXyePyOcTQ14UZE6 UGLkeoUgH2PwDBMd iWveQtX0z0V7Fy9LI6HL SeslR3ZKBFEDDZxugAC+ AL95po04B5FjUncsHwd5 WXWwUFR0nMQ0nN7t EXMmRBgzo2O3kNS9R0Qw nmQeps8fv2krGUDjSVez B56oqUZvl1B5ORFjkOV9 QHUlqYxoYdCkrI23 Oyc+NEZuyIrdw7YiGjet s9skr4qejKn4KuwtSPCt sxYrnQvcMFL6s4XtZx6i GRDwaLS3tFP8wD8w ZsKjAuJ7LRvvM786RkJd zBYgTfovC42iY6JntNK+ SPVePbp5DGVksRtiGQ3g S6ZaKWCnzenlqIMq zGwbUX3hMFVtzjyeABBd sL6dQWKaS8q3KmCbRoJ5 CLipL5KmLGBsmhosGs78 yG3hZwPnUgZ8DKqt U6RqguN8DRMelKKvYYmr EXU6U24vj7S6SALdAJIa JWS4oTE1nM2skBhheghz bGVmdDsgdmVydGlj YLxbQBrjY179QSEsyEol PkNvZGluZyBEYXRlOiAg MDIvMjMvMjAyNDwvdGQ+ MMUxZPG5pEqqCFRf oLPuFTyhOx8plBkisRpj EZ8oDUHufbnzFHWwwW3g OIYugAPitYjvTX1dQZTw wpwie729XeOkYWN8 QXPkzXCzU7BdxJ5aUkBj PRTuSVCdL1RggYZvACgd P489DVngLwU1BUUkjdAi F2EpDJPpmFxgDuR4 p9P9Ao3Tx6GawmdrD8Ya kDHcWmVvAncgZFv9N1Cd PjwvdHI+IM39BGQuGA42 ONd5BBA1lJavXQlm IOIcQ0CdoN6xGoRkURPf ZGRkOyc+PHRhYmxlIHdp ZHRoPScxMDAlJyBzdHls EL6bHz0aMOFaIHZs yFmitOLcBjYmw1kdBLOo EEshFJ7neLsxT5LuuZL3 OKIgf8i8Ms12S56bK4Lq dXA+OWWdfLM1bDO5 zW3lZvVtQoA8URukC384 VyIuwUOvTjaxu4mgw2uh gNg9OxS2HLLlzlMdjPlt TSM8u0FnHw74C04d IHdpZHRoPSIxNSUiIHZh tXrfmh3rmL7vHl9+PGNv uHO4oLF6pL8sQsXlZsL6 ZHneW693WrWjzODk Sjtjj6cqh5gguSs9ZkZn CDZghdMhzKryISY5y8Kw Jd07P9KprLkvy8RdHwj8 sg77tFSax1X8tAC8 M8SyCZXnjcvhvDSbkUsv YC9eCLZvilcpDYTezL6t QVHsF1z1JhIxEaC1OIbq X9RmlsQ6MGIzvGRf UUAsmIBClK7czqjlt6ca uszpKdXpMJHrGAs3TBr8 YZBpyXgmCoWlMNG0YjO5 BZB4cDGxaP2yaSaq hrdeeV4jSnd+TUH0cBJg yABLFV1gChwamNN+PHRk SVS6wVktMXbrVYAulI0n UQFfP6g1DoXcOcB8 KTnjO0IcjxM9GNVzkFFj OSQlrIGOzX7etnbaz9dw rldiXqPnTCInNXp9ZDb4 LWFsaWduOiBsZWZ0 YsC2ZTC5rXEqmB4rxWvk hvqexY2rXwt+QmlydGgg UIG4WLh3L1AuQuj8FIHo rGccGY1jaTItMVpy Qo7ysVanbVqkOB4eXVGa aoixe710MnIpf2xbNNHg oHKlYOlqGQY6T11oh0D6 KUObDKOjVVQ1dMU0 rS8tfAstifjduLCcuKcq oqHhwIniDXxmMRsrH711 ONXkxMejEkMlOMd8K1Rb Lnr1YPPlaIywLL3i tJXlDChjNu0mwEjacGyb XD5qBOKjecozf655SnMu k1dkERNbfBQoXTzuTHI2 C40pr6W7PXUgZFNr UET8kRT0uE9mxAxxuooq bGVmdDsgdmVydGljYWwt TUbtP429WUOljVjdShJg rNw4N9YoHnf2NJOm qQtmYD4egJDsOPajFf9h yNyscYfuPV2cZJTccdul z427IpDkl3ldQRTopLJh ANnxSMF6B09hx2P4 RVGeIFHcXNS5rGB3mC8c bGlnbjogbGVmdDsgdmVy vNybHHteWYfyU350WCCx cDsnPlBhdGllbnQg TWfdRQe4A5WsMomvrCD+ NQ71QSZbAN09cODzjVCc m9wndAb6LhNdZHDhETF7 iAvuFXbyz2KwMFHq G63jjEDpk6Q2ZPHkdKia jAJnIdNwaZX0yR8bEDhl sxmgr9jxmjlyCsebf7bw qd85cQ80Y37iSMtg ZHRoPSIzMCUiIHZhbGln yt5bvL7lEx6+PGNvbCB3 xZH9hI1iBUItIlY6HYti X052CxRqjIWrPrcv e4qae9wsmAs7DiM3NQRk qoCjeFibPRW9a2LxIh18 T71nGIaxZUNaHOTwMNNt WQJbmZljvr0fzZ6z Ii8+YRJaqKP4wYR9cE3x CbSwPbB9SYtkH827JyZt fBFyZnhzT49pQ0YeqGO+ SGBcLpz7WSXxmCmx GM3huUTtBPypHk9kNQW5 FpZfNgOkKVghH5QnCJAv uwisnvbyoGK5WMVeTHBc iS40Jc6ltRvmGCBu wJEEmT5lentnq7gmnawt PiWtFXCgACk6FCg2BLKu fQxoSvIvZZD0HzW1ZNX7 lUStvL5zdPiqhdlj tM1nI4YjBIBzpxxbHi77 tK7iFpEgEaY5EGwsLzi+ I8kNZfHFGZpxB3tEMUAF GCwUPG3EBUaomBB+ NXOqKGF2yRrpQIfuEEFj jD5zOGUiI6g5RwTuEdZ4 CRaaQ5PlXWEvjmbgMk34 uE3pYjHwSoR2MLmg J8IbraI5TOZenSUkMTfd WPE5C01mv4C5GAAvSQCe KJR2rPT1xH2vdWabsqio bGVmdDsgdmVydGlj GWihEVhyX694FIJivEqz NhB6FyByTaQyMUW3Q6Ry Ezu7NPPjiOfhRT4ofBFc TRefVb6neWwpuKms VW4fXMGqnfouAWDrlF8g CMDhjQHxlYogQV6lUYMt fhsbo954XrGpPLO5KPLy pCNkL3XxbG7cMkTd IPNkAAMrI7FfgXBcBYcb Y359QAzmDbK6IATfyrKa B8BcZLYtjObsGwW6y5K5 Sx9dCOQQWPDvhkct dGQ+OGDxILI2fFbaVQcb QOEeqJ4eZQEnQ3g5DgDd RhT5TXzsR5HeOZXujvvd Tu48tI6bGtYhFgP5 CPekB2OnfeN9FQDooOEz NGjhGVC6L81oj4E8CTRa ZSRfDMQ3bVI6mF4bhIkn bjogbGVmdDsgdmVy yCxfVSpbZXtlK490HFSx cDsnPkZFTUFMRTwvdGQ+ JZFsEQX9aZnuMFecWOQq vA6eUTVlC0c0SoHl HtW8FKwnB7BoBJBxwici Qp25tR6yEhBgKnD8NQfv C8QuazR9QFVdtWRiJQjo XSJ2T71mf6X0CIRu UJWqDFV8qSM7xQ9ccKkt bjogbGVmdDsgdmVydGlj DZthCIetV501XGSjxSmb UcHmDLSoGU9zcLfe dGQ+II27mr73S1VuLuex Odf7FHDqGRK7uVY1tT3k XNVyHWlce5V1lMR7I4Mw ioXbho9ko7snVUBt IDbqM87slHPme3W4XUDo rPF6FZIzvFjzQyGmeM97 Oyc+PDFvqUbra1PfFxmd f6hfc5psrMq0JzEe SXGyzlXpoUcaMUH9f3Uf Em72J00tCRxbICYgSRTr EAIqQJLslCxtyn5txX9a Ii8+JBSraXF9rXZ0 wV7fEpYdEzA8YBkoV870 HlZugNLeTnbfj3dnj9uo nEc4WdJwZCZbfhCkvKek VKK4s4QiOi97Z6Rh tKohi1KlFux5ra20oMQv q4D1vHC1F2AxUUDehjan bCYcnUioUQ9lUFIegqbe XWDvgQ8jYUIqF3e4 UpZlZqS5VLsyQ5VermJ6 RZEjxITqGCGswUGLvP8p cymmu8nzrweeGgTfCZGv ZGn0ABa3TLBhmXmv JnTePHJ5VzT3CHV3tARq wO9suIpjeljwnZ2lZno+ RLj2l6fskEGnJW9ncCO9 FR16AC47nQMvr1C8 zZM7H8TkPQPjdyytaucz kPS1APFjCEZonK89Lk3i lIxcTn4lRNNjEPH1TVYt cXWzT1ZsoH1oPzUd NYWeOMVcU2EuaUPgVJis P066QKpyElE8KJQvenUi S4VzKZKydWotRqP2z7F3 Gd4HKN19EP79UE41 sCAro2L4hLJ8X9XqCHGe dvohekztfJR7AFMjGPPo mX88Da1epDqiVs1bFNDl RIQ3IDZcaRDrZ9Mn bC3uRhMbHUZwWRTmH6Se nSIzMGohJ756SLteNwM5 DLDvkuIgF4EtPNAgnTju NiK8h2C9Me3YDc62 KQ81BN12yXBzb5Z6dYQ0 A9FeUNYunzdzmlqzsHO8 TJSmYXFieX20Rl8igWas Ik3lRLGjCHT4BCNp kVWsG5BqlO1vArFzCHVc VDBdH2FzjIFeLSxzT279 VHfvOvA9MGPhglGsU1Ns SZYbeUcrCwH0i7U0 Oe3MKZrwfgi4J1AwRoaf dHI+WB09JVZaHA17jNOv iKAfy4gfkMw6LjVlAVGy FXV5jVwaTAmwh4Ag ZXI (more content not included)... Normal [facility] C Throaton 05-28-2023 C Throat Ordered by Radha. Normal throat jonny isolated No pathogens isolated [facility] Comment on above: Performed By: #### 1 [id number], [id number], [id number], [id number] #### [facility] (DEFAULT) [address] [place] [address] .QC SARS-CoV-2 (COVID-19)/Fl u/RSV (GeneXpert)on 05-26-2023 Internal Control Pass [facility] Comment on above: Order Comment: Order ed by Radha.[[email or web address]] Performed By: #### 1 [id number], [id number], [id number] #### [facility] (DEFAULT) [address] [place] [address] COVID/Flu/RSV (GeneXpert)on 05-26-2023 Flu A (GXpert COVFLURSV) Negative Normal Negative [facility] Comment on above: Performed By: #### 1 [id number], [id number], [id number] #### [facility] (DEFAULT) [address] [place] [address] 43128 Flu B (GXpert COVFLURSV) Negative Normal Negative [facility] Comment on above: Performed By: #### 1 [id number], [id number], [id number] #### [facility] (DEFAULT) [address] [place] [address] 20152 RSV (GXpert COVFLURSV) Negative Normal Negative [facility] Comment on above: Performed By: #### 1 [id number], [id number], [id number], [id number] #### [facility] (DEFAULT) [address] [place] [address] 04612 SARS-CoV-2 (COVID-19) RNA MILY+probe Ql (Unsp spec) Negative Normal Negative [facility] Comment on above: Result Comment: Perf ormed by PCR methodology. Performed By: #### 1 [id number], [id number], [id number], [id number] #### [facility] (DEFAULT) [address] [place] [id number] ED Clinical Summaryon 2023 ED Clinical Summary [facility] - Emergency Department [address] [place] [address] ED Clinical Summary PERSON INFORMATION Name: LIA DESAI Age: 22 Years Sex: FEMALE : 2000 MRN: Acct#: Visit Reason: Diarrhea; Fever; Headache; Throat pain - Adult; Body aches; HEADACHE, FEVER, BODY ACHES Arrival: 05/26/2023 17:02:55 Discharge: 05/26/2023 18:57:00 LOS: 000 01:55 Check In: 05/26/2023 17:02:55 Checkout:05/26/2023 18:57:00 Address: [address] [place] [address] PCP: ROBERT MARRERO PROVIDER INFORMATION Provider Role Assigned Unassigned Yassine Maldonado MD ED Provider 05/26/2023 17:04:17 [place] 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 [employer] Nurse 05/26/2023 17:19:42 VITALS INFORMATION Vital Sign Triage Latest Temperature Tympanic Temperature Temporal Artery Pulse Rate O2 Sat 97 % 97 % Respiratory Rate 16 br/min 16 br/min Blood Pressure /71 mmHg /71 mmHg MEDICAL INFORMATION Medications Given: Allergy Information: Adhesive Bandage; Zithromax PHYSICIAN DOCUMENTATION DISCHARGE INFORMATION: Discharge Disposition: Home Discharge Location: Home PATIENT EDUCATION INFORMATION Instructions: Hypertension, Adult, [id number]; Nausea and Vomiting, Adult, Xawk-pd-[id number] Follow-Up: With: Address: When: ROBERT MARRERO [address] [place] [address] Within 3 to 5 days DIAGNOSIS: 1:Nausea vomiting and diarrhea; 2:Elevated blood pressure reading; Diarrhea, unspecified Patient Understands: Yes - Patient/family/careg iver verbalizes understanding of instructions given Comment: Normal [facility] ED Patient Summaryon 024 ED Patient Summary [facility] - Emergency Department [address] [place] [address] PATIENT DISCHARGE INSTRUCTIONS Patient Information Name: LIA DESAI Age: 22 Years Date of : 2000 Reason For Visit: Diarrhea; Fever; Headache; Throat pain - Adult; Body aches; HEADACHE, FEVER, BODY ACHES Arrival Time: 05/26/2023 17:02:55 Primary Care Physician: ROBERT MARRERO Attending Physician: Yassine Maldonado MD Comment: Visit Diagnosis: Diagnoses This Visit Body aches ([id number]) Diarrhea ([id number]) Diarrhea, unspecified (R19.7) Elevated blood pressure reading (R03.0) Fever ([id number]) Headache ([id number]) Nausea vomiting and diarrhea (R11.2) Throat pain - Adult ([id number]) The Pharmacy at [facility] is open Saturday through Saturday from [...] contact the Mental Health & Recovery Board [facility] 29/10 Crisis Hotline -Text 7BNUN tn [phone]. If you received any narcotics, sedation, or [...] legal documents With: Address: When: ROBERT MARRERO [address] [place], [place] [id number] Within 3 to 5 days Medication Information: The exam and treatment you received today in the [facility] Emergency Department were for an urgent problem and are not intended as complete care. It is important for you to follow up with a doctor, nurse practitioner, or physician?s assistant elementary teacher for ongoing care. If your symptoms [...] so we can reach you if necessary. [facility] Emergency Department has provided you with a complete list of medications post discharge. Please inform your pin drafting machine operator/provider of your visit and for further [...] pressure an (more content not included)... [facility] Strep Aon 05-26-2023 Strep procedure control Pass Normal [facility] Comment on above: Performed By: #### 1 [id number] #### [facility] (DEFAULT) [address] [place] [address] Streptococcus A Negative Normal Negative [facility] Comment on above: Performed By: #### 1 [id number] #### [facility] (DEFAULT) [address] [place] [address] Coding Summaryon 05-20-2023 Coding Summary HTMLBase 64 TcjcvsgtAHu2gWh+PGhl YWQ+HH7WNOSoM02cmHNw yB5gA1XRVUeMOgruQJKV EDhFZlSwdiQfMX7ndQNg ZXJu IC8+XB1sNKCgUahezMFv q4O3lKX1W65cff7fWFnj vKZ2EUZkDqHxzxjtx9qr vXk7SLacKztlZvLu GZXfxT24FGE0cR29Rw01 jNLmnHFvd2dlzOa2XtWj EJHkNZH6oDqlOGuus1Yz SKBdH70wqBSvx9Q1 IGNvbGxhcHNlOyBlbXB0 dL7jIPsivmbyt5qmrvik Zvt4ij81bVZvy0M9rQU7 D5PyioZ4UOBysWVg WjdfcBDVwE1bcalgi9ll uwryHrLvYJVdWUh0GFw5 GVPgvFytKmQlQG32BFB6 SOOywdPzV7HhLTKp pZdzOkQ3u5A6Ct5SB1WZ UohrJ1XBLNOIMHwxrDP+ WY80mf74G5ZaUoggPex7 KRQwPBM5gBC3hH3x SDIhSDoif0V1mVC3U6Ut jjOekg9jc5hsSZNyLPry C84sxGFxf6F6SREohBS9 UXTrgJtxSnVutI97 Oyc+BLAoxMgzx5DfUffx s9qxm0yswUc5JxmlZUBs duYghQciTMT4t9PnXy2s UWRdgVK4qSB8rM6d RmRuBvB2KBerY599WyHg iSAlCwqkI20rE8RwrSV+ VJUuMkt7CZLcqGyrSI8w U4StNZAgkcangFQg bFwkPI4xQCIqvsiwQWFg mK9uXWOfA6m9ObPjWuZ2 AImjS6QgYTSkuveoJp12 uY4hQmLoWcC8IQux S4KckdZ2SWZldVGjQFoo DVB6Z32tv5V1DVXsDFBa BCS3nGQ1hC4nkUlviuvd bGVmdDsgdmVydGlj KIpnDJgyM706OEGryStx PkNvZGluZyBEYXRlOiAg MDIvMTIvMjAyNDwvdGQ+ SVAuJWY1iComBOJv mQZcVNdzQx0zzTftcQjq AW4qKJJecpmkYKIcvE5a IKQncSWpyKwfQD7xKSXy lojkc798LcRaWRS7 VADgaWMoE5AwaQ8jHeNr LOOuBUKsA0UjvQVdOMji M383BEdvFjP2XEMmjcLu R9IrBZGgjKdhRgL7 z7V9Rz8Ci5TqbyxaO0Nw fWQeAfSkNajlVAr3E9Hi PjwvdHI+XK38SZRxWN00 MSf7KMK2aOcpMFjd LCZdG6UpxC4dFuDzYCLq ZGRkOyc+PHRhYmxlIHdp ZHRoPScxMDAlJyBzdHls SS1bPb2aZUSmONDx zJvinYQcBtEdt1epCGBx UJxeXS7taPsgB1VgvMW4 WFQja0z8Us62Y85bR3Nw dXA+ITKkjVM0lIT4 yP1fNkIwXfT7COtzD280 TaKqwPKyFarsa6edv2yw uXa2QgE9YDNoogQdfJct ICC3w4DuTc73U72r IHdpZHRoPSIxNSUiIHZh aUozer6maW9dCp7+PGNv vIJ7sNG7lE4cCeFkMlW6 HNgyP116EjFvxZGb Oxzgm9clo3qsjPc3XaJd IPSuifRblYbgILQ9l0Aj Ni91F8QgsAifa0MsWnu2 xg57wCFiz9C7yIP2 D5IdGNRfiopqbSZjgHdk JM0qQESyqqlpWFYbnK2u FBBsL6b6VlRkFjJ3BGso F4MfjrW7XJCihMMt STHrqHSRiZ4fjlioo3gg sdgtOsWnPIHyLWi2TGm1 DGGleAxeXcDeEOP3BeA8 ZGR9nONbhC5qpXog hedojP6aPke+VZH7rFLd mEYSHH8aWofdpDR+PHRk PNG7dStmEIzxBUVklS9z QULhC2a0RpSvZbM3 AIkeM9LhiqF3ZHJwoFOd LCMtqBNYfO9rmmpnz8am pllsVgUvGVZbODt2NOu2 LWFsaWduOiBsZWZ0 OeU4UZO3fAYzlR1fyQto kicokX3jZoh+QmlydGgg MAV2ETc8P3MdMex2WWUe kWqjLY3geKMzDQmp Pa8zyNgogBuvLJ5lVQHn lsluv232HxIhd3vwOAQi qXHvANtkIAB0L64rc5N5 BVXaUONsTUU9lAV6 nR6ieWxbhvgctSVsiLqb pvFkfHonGHbvHTpfV459 YNGyfJbfWgAyOSc8J1Qa Cfn8ZWRxsOljIS8g nUIpGGppFf0bwQoqaKcx XA6lNIDztkazi577HyJg h5eqLLEfrXFyEQcoXII4 X76vz7J1EOEsMDRr UTN7bWQ1nY0nzRfjduim bGVmdDsgdmVydGljYWwt ZOxxT261TGDjfIxdMoJi wZc3D9SwEyo1SODx bBotHM6ysAEdSVacQj2b fKzeoJlcPW8wMVArznye b952VlJvm2rrENExoSVg PSjbBJN8X06tg8J1 VLGrYAZyYEV9pAB8qR4h bGlnbjogbGVmdDsgdmVy zIjpHVhzWAtfC160WXJf cDsnPlBhdGllbnQg YOtgTDz7V1JpKdcraLM+ SR24NRMxEW51uTYnxQGp w3yqcJm2NzSaNNWyFEB0 uLurBPmkx7WhIJZw E12evSDvn5O4FYAscLmj kJBuCaHbfVP8tQ5sJPxk lsiuj2odxufzRuqcq6xf lz41kS89U45zXDsg ZHRoPSIzMCUiIHZhbGln dx3cjI1lQz1+PGNvbCB3 mZP3bV3qWTSrMwS7MDbi R332KoGhqXDfCxry a7jfn0hzfLp2FtI4IXEh nzUweWniEID9b1XfBu50 O73sSPccATOgVMFjAHAs NQPvgYcsfb9qlB4j Ii8+ZDThyXY2xMK8hV7d DrJrWpV2BGehS759AyDs wNGiMkzuO97gT8NssYM+ JJGhFhe2PMAncPrb DD8jeKQnELnyXb4gNGJ3 XnUjOcArQCinQ4IhYMWo oafymqbffXL0XBHxQQTi yM29Ue7pcKenISNd wNTYcX4jiwkly2plkcjx VmHaCJAqIUi4JLf1KWBj yTliTrCaCKW6IzH7YUW9 fJGqeU5wvXipennl jT4yT4NtOPYocrvzMe42 cR1lOzXjIhG8QFptVuy+ J6oZXfPFYXvuB0xCVBWW DQvYVA8FCUskyKR+ DQDbPVN6sGxbSTplZMUb eQ5uVFRyZ8a0KaSfKaL0 DZxvM3RnRFVvknpzLa07 cK1gLvBzPyN7ZNya H6AhegR9WPEkfOSiQJuy YGR6B09ac6Q4JDEfUSHk QEV5tTY6xA9mkTuvxoeh bGVmdDsgdmVydGlj VMsjCJhaF113BOYloCjm HnS6ImHbSwWlOUN4M3Qm Vwe0XXKfgTueQH3pnSEj BZxaWb2lxLqomAxv KJ9oINHgmhxxKHBvcO6r LLEfsMXknCaeWQ0bVSHf fmejm449VqTnNTQ6GAUt vGBlV1YluZ0vUoGd VYTtOEEnJ3SccJPlWEtt K872AUkmJxD3DZGpusKy V8GdFCVbwLuxLkR8a8O7 Wl8oENBJTMAwfuoa dGQ+XGPoUZU3lQdtIUhg JDLjpT8pUJVbL8k2XuNb VsG6IXlaU1WuLHLmarco Xj64gT9aAvHlLiY6 VDlnJ1KoubQ8WZFvbMTf DHzvBSE1N25cz1P3RIPf QKNtDJP6vBO5wU5duVsw bjogbGVmdDsgdmVy gGmhRMosQDtoM431PLAx cDsnPkZFTUFMRTwvdGQ+ BBBqOXC9dOgqHMjtTKEn uU1qKFYmD0n4QkOx YbN3IQvzL4ZqOKOesrzg On44cA2yCwTfXzQ7XJil Q4JwfeY8LRBrzSJiGAtx PHB4W40lf8M4XMIf ANXnHOC4fTT9cS1ceGrx bjogbGVmdDsgdmVydGlj OHmoVAnmV999BBOdkQry ZyIfDYOhCS6hrJsp dGQ+IK64wz71T2CvRajv Zbt1NEJiRAB2aZB4sV8i AVSpVUcvu9L2tVN5B3Vl tlAhen2qp4sqCOLd ICkeL70jlLIde4K8DRVp qGL6ZUQhgRtoOiLkjG10 Oyc+ZWMryBayl3ZmMmuf y5ujo9phxCr2QpLv MAKgbhVbiGhwCHF9b3Tp Mr87I46aSUjrOEUtCTNm FGEwIUAytPmelu8nkT2a Ii8+XCLtdLP4pNE2 vL4pPbAiFaS7FNvrC523 NiJmmUBzKkoot1axj4fl pNu6GhPnRTXshtCmlFed KER3g6JmVt90T3Ij oAkin7FeUjk4iu04uHSc t4Z1kQD4A3ReLOSsuijc nYPtzTtaRP9lQLQldzmu ZVKcvD6hVCXbM3x1 CrWyZfF3ZSsiV1PrfnM8 HZPumWTcQOMhaYTXeH7y fmlls5geadrdQyGtJAXp VDc2EMu5IWCcyTpy VyOnZNQ0WaM5FXH0yYGl eB5dzHnvetindC9jYss+ KIz6a3asmFItFZ8ghXM1 FN47WB38uAUmc0D2 mUW7N2CmEWGctlhfljvl vDQ5ZJIxURAonD51Ae0o zJuvIy3aNBVeGFR1GFYt cQIxB6JfbV1rQcKk QIZwVNRzV7KjgOOuMXxe H373DRwqOhD8RKSarlTn L0KpQUFirWeaFyV7p1B9 Mg6BKJ80FZ95PX12 zFLvp4D9pOS7S3CvJTNu eeiwfunzzBJ6BUCjWCUn kS12Gw4rzHveBp1lCXBg WGM5QQLevUPfG0Jh sU3cJrTqWINxKGBkZ5Qc sYNfBFckU553KHjlWfK9 SUDqooVrW6AtYVXnvUjv UvG3c0A5Hp4FDm91 HM20UI43lOTmm1E1qIQ3 R6MrUJCzzluiqwgleDP5 POKuPHGccQ96Qa1kyXvy Uq7lZDLqBGB5JSVo zQQdA0GxuM7dFyLvCHQh TQOkZ9RkyZXhQAkmA841 XVzjOvP6FIAtfnSwO5Pn YROuxCjmYdI0l8K8 Jv6GKEywhjs0I0NzHqjv dHI+ZB57RARrWS65rNSb pLUby9klcKo5YvVwKXMk LYM9kOqwNXbqb1Qg ZXI (more content not included)... Normal [facility] C Urineon 05-18-2023 C Urine Urine Culture ordered as a result of parameters set on specific urine dip and urine microsopic results. 15,000 cfu/ml Corynebacterium species (DIPTHEROIDS) Normal skin jonny isolated Normal [facility] Comment on above: Performed By: #### 5 [id number], [id number], [id number] ####[facility] (DEFAULT)[address] [place] [address] ALL CBC WITH AUTO DIFFon BASOPHILS ABSOLUTE AUTO 0.0 [facility] Basophils/100 WBC (Bld) 0.3 % 0.2 - 2.0 % [facility] Eosinophils/100 WBC (Bld) 0.5 % Low 0.9 - 7.0 % [facility] Erythrocyte distribution width (RBC) [Ratio] 12.2 % 11.0 - 15.0 % [facility] Hematocrit (Bld) [Volume fraction] 38.6 % 36.0 - 48.0 % [facility] Hemoglobin (Bld) [Mass/Vol] 12.3 g/dL 12.0 - 16.0 g/dL [facility] IMMATURE GRANULOCYTES ABS AUTO 0.02 [facility] Immature granulocytes/100 WBC (Bld) 0.2 % 0.0 - 0.5 % [facility] Interpretation and review of laboratory results Abnormal [facility] LYMPHOCYTES ABSOLUTE AUTO 3.1 [facility] Lymphocytes/100 WBC (Bld) 32.8 % 20.5 - 60.0 % [facility] MCH (RBC) [Entitic mass] 28.6 pg 26.7 - 34.0 pg [facility] MCHC (RBC) [Mass/Vol] 31.9 g/dL 29.9 - 35.2 g/dL [facility] MCV (RBC) [Entitic vol] 89.8 fL 81.0 - 99.0 fL [facility] MONOCYTES ABSOLUTE AUTO 0.7 [facility] Monocytes/100 WBC (Bld) 7.7 % 1.7 - 12.0 % [facility] NEUTROPHILS ABSOLUTE AUTO 5.4 [facility] Neutrophils/100 WBC (Bld) 58.5 % 43.0 - 75.0 % [facility] Platelet mean volume (Bld) [Entitic vol] 10.7 fL 9.5 - 13.5 fL [facility] EO # 0.1 [facility] PLT 211 [facility] RBC 4.30 [facility] WBC 9.3 [facility] .Auto Diff 105-15-2023 Auto Young % 8 % Normal 1-12 [facility] Comment on above: Performed By: #### 1 [id number], [id number], [id number], [id number] #### [facility] (DEFAULT) [address] [place] [address] Baso Abs# 0.1 x10 Normal 0.0-0.2 [facility] Comment on above: Performed By: #### 1 [id number], [id number], 5799049, [id number] #### [facility] (DEFAULT) [address] [place] [address] Basophils/100 WBC (Bld) 1.0 % Normal 0.2-2.0 [facility] Comment on above: Performed By: #### 1 [id number], [id number], 2487844, [id number] #### [facility] (DEFAULT) [address] [place] [address] 36095 Eos Abs# 0.0 x10 Normal 0.0-0.4 [facility] Comment on above: Performed By: #### 1 [id number], 84013414, 7551397, [id number] #### [facility] (DEFAULT) [address] [place] [address] 23651 Eosinophils/100 WBC (Bld) 0.2 % Low 0.9-4.0 [facility] Comment on above: Performed By: #### 1 [id number], 58333405, 1266607, [id number] #### [facility] (DEFAULT) [address] [place] [address] 75013 Lymph Abs# 2.6 x10 Normal 1.3-2.9 [facility] Comment on above: Performed By: #### 1 [id number], [id number], 9880743, [id number] #### [facility] (DEFAULT) [address] [place] [address] Lymphocytes/100 WBC (Bld) 25 % Normal 14-48 [facility] Comment on above: Performed By: #### 1 [id number], [id number], 7496458, [id number] #### [facility] (DEFAULT) [address] [place] [address] Young Abs# 0.9 x10 High 0.0-0.8 [facility] Comment on above: Performed By: #### 1 [id number], 83236562, 4310236, [id number] #### [facility] (DEFAULT) [address] [place] [address] Neut Abs# 6.6 x10 Normal 1.5-9.2 [facility] Comment on above: Performed By: #### 1 [id number], 49551024, 4568564, [id number] #### [facility] (DEFAULT) [address] [place] [address] Neutrophils/100 WBC (Bld) 65 % Normal 44-88 [facility] Comment on above: Performed By: #### 1 [id number], 42563872, 8162688, [id number] #### [facility] (DEFAULT) [address] [place] [address] BMP Standardon 05-15-2023 eGFR Non AA >60 Invalid Interpretation Code [facility] Comment on above: Performed By: #### 1 [id number], 68856407, 9748584, [id number] #### [facility] (DEFAULT) [address] [place] [address] eGFR AA >60 Invalid Interpretation Code [facility] Comment on above: Performed By: #### 1 [id number], 55690550, 1292407, [id number] #### [facility] (DEFAULT) [address] [place] [address] Anion gap [Moles/Vol] 15.2 mmol/L Normal 5.0-19.0 [facility] Comment on above: Performed By: #### 1 [id number], 77425481, 6509120, 8850041450 #### [facility] (DEFAULT) [address] [place] [address] 09878 Calcium [Mass/Vol] 9.2 mg/dL Normal 8.9-10.3 [facility] Comment on above: Performed By: #### 1 [id number], 93461013, 9831858, [id number] #### [facility] (DEFAULT) [address] [place] [address] 90860 Chloride [Moles/Vol] 106 mmol/L Normal 101-111 [facility] Comment on above: Performed By: #### 1 [id number], 39076722, 2814750, 6582250818 #### [facility] (DEFAULT) [address] [place] [address] 96907 CO2 [Moles/Vol] 17 mmol/L Low 21-32 [facility] Comment on above: Performed By: #### 1 [id number], 47968242, 9650299, 9173948781 #### [facility] (DEFAULT) [address] [place] [address] 67393 Creatinine [Mass/Vol] 0.55 mg/dL Low 0.60-1.30 [facility] Comment on above: Performed By: #### 1 [id number], 26798926, 0731992, 1057648507 #### [facility] (DEFAULT) [address] [place] [address] 43938 Glucose [Mass/Vol] 75.0 mg/dL Normal 74.0-118.0 [facility] Comment on above: Performed By: #### 1 [id number], 97260987, 6402131, 9594543736 #### [facility] (DEFAULT) [address] [place] [address] 07083 Osmolality 266 mOsm/L Invalid Interpretation Code [facility] Comment on above: Performed By: #### 1 [id number], 22396544, 4748140, 8722321041 #### [facility] (DEFAULT) [address] [place] [address] 67610 Potassium [Moles/Vol] 4.2 mmol/L Normal 3.6-5.1 [facility] Comment on above: Performed By: #### 1 [id number], 99059405, 5263788, 2809053491 #### [facility] (DEFAULT) [address] [place] [address] Sodium [Moles/Vol] 134.0 mmol/L Low 136.0-144.0 [facility] Comment on above: Performed By: #### 1 [id number], 37356221, 7460683, [id number] #### [facility] (DEFAULT) [address] [place] [address] Urea nitrogen [Mass/Vol] 9 mg/dL Normal 8-26 [facility] Comment on above: Performed By: #### 1 [id number], 18047762, 6924301, [id number] #### [facility] (DEFAULT) [address] [place] [address] Urea nitrogen/Creatinine [Mass ratio] 16.3 mg/mg High 4.6-16.2 [facility] Comment on above: Performed By: #### 1 [id number], 43635955, 9996398, 2167032101 #### [facility] (DEFAULT) [address] [place] [address] Breakpoint Chem Normal [facility] Comment on above: Performed By: #### 1 [id number], 13544134, 7145582, [id number] #### [facility] (DEFAULT) [address] [place] [address] CBC w/ Auto Diffon 4 Erythrocyte distribution width (RBC) [Ratio] 12.9 % Normal 11.5-15.0 [facility] Comment on above: Performed By: #### 1 [id number], 68631489, 5900924, 1842087196 #### [facility] (DEFAULT) [address] [place] [address] Hematocrit (Bld) [Volume fraction] 39.2 % Normal 33.7-40.4 [facility] Comment on above: Performed By: #### 1 [id number], 95304360, 1075975, 2884293131 #### [facility] (DEFAULT) [address] [place] [address] Hemoglobin (Bld) [Mass/Vol] 13.4 g/dL Normal 11.3-15.9 [facility] Comment on above: Performed By: #### 1 [id number], 96117386, 5418405, [id number] #### [facility] (DEFAULT) [address] [place] [address] Man Diff? RBC Morph Only Invalid Interpretation Code [facility] Comment on above: Performed By: #### 1 [id number], 21844538, 6103828, [id number] #### [facility] (DEFAULT) [address] [place] [address] MCH (RBC) [Entitic mass] 29 pg Normal 24-34 [facility] Comment on above: Performed By: #### 1 [id number], 03444891, 8670904, 1220636443 #### [facility] (DEFAULT) [address] [place] [address] 50522 MCHC (RBC) [Mass/Vol] 34 g/dL Normal 26-37 [facility] Comment on above: Performed By: #### 1 [id number], 45086999, 4675298, 5818298755 #### [facility] (DEFAULT) [address] [place] [address] 15067 MCV (RBC) [Entitic vol] 84 fL Normal 81-100 [facility] Comment on above: Performed By: #### 1 [id number], 32883387, 9409290, 2663220408 #### [facility] (DEFAULT) [address] [place] [address] 33722 Platelet 228 x10 Normal 138-427 [facility] Comment on above: Performed By: #### 1 [id number], 28561451, 1010281, [id number] #### [facility] (DEFAULT) [address] [place] [address] 43290 Platelet mean volume (Bld) [Entitic vol] 8.7 fL Normal 6.3-10.2 [facility] Comment on above: Performed By: #### 1 [id number], 18687273, 4855140, 2205420354 #### [facility] (DEFAULT) [address] [place] [address] RBC 4.66 x10 Normal 3.70-5.30 [facility] Comment on above: Performed By: #### 1 [id number], 24299882, 4069346, 5298965741 #### [facility] (DEFAULT) [address] [place] [address] WBC 10.1 x10 Normal 3.5-10.5 [facility] Comment on above: Performed By: #### 1 [id number], 62743397, 6832988, [id number] #### [facility] (DEFAULT) [address] [place] [address] ED Clinical Summaryon 2023 ED Clinical Summary [facility] - Emergency Department [address] [place], [place] [id number] ED Clinical Summary PERSON INFORMATION Name: LIA DESAI Age: 22 Years Sex: FEMALE : 2000 MRN: Acct#: Visit Reason: Vomiting - ; 10 WEEKS , NAUSEA, VOMITING Arrival: 05/15/2023 13:59:38 Discharge: 05/15/2023 19:41:00 LOS: 000 05:42 Check In: 05/15/2023 13:59:38 Checkout:05/15/2023 19:41:00 Address: [address] [place] [address] PCP: ROBERT MARRERO PROVIDER INFORMATION Provider Role Assigned Unassigned Joelle Nava 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 [employer] Nurse 05/15/2023 15:05:55 Mamie Moore MD ED Provider 05/15/2023 15:56:16 Chrissy Diego 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 [employer] Nurse 05/15/2023 19:19:53 VITALS INFORMATION Vital Sign [...] With: Address: When: ROBERT MARRERO [address] [place] [address] Business (1) Within 3 to 5 days With: Address: When: Follow up with specialist Within 3 to 5 days Comments: Your BIOMEDICAL ENGINEERING TECHNICIAN DIAGNOSIS: 1:Hyperemesis of Patient Understands: Yes - Patient/family/careg iver verbalizes understanding of instructions given Comment: [facility] ED Note-Nursingon 05-15-2023 ED Note-Nursing PT. C/O [...] gait. [facility] ED Patient Summaryon 024 ED Patient Summary [facility] - Emergency Department [address] [id number] PATIENT DISCHARGE INSTRUCTIONS Patient Information Name: LIA DESAI Age: 22 Years Date of : 2000 Reason For Visit: Vomiting - ; 10 WEEKS , NAUSEA, VOMITING Arrival Time: 05/15/2023 13:59:38 Primary Care Physician: ROBERT MARRERO Attending Physician: Mamie Moore MD Comment: Visit Diagnosis: Diagnoses This Visit Hyperemesis of (O21.0) Vomiting - ([id number]) The Pharmacy at [facility] is open Saturday through Saturday from [...] alcohol and/or drug addiction problems; contact the [facility] 29/10 Crisis Hotline -Text 4HFES to [phone]. If you received any narcotics, sedation, or [...] legal documents With: Address: When: ROBERT MARRERO [address] [place], [place] [id number] Business (1) Within 3 to 5 days With: Address: When: Follow up with specialist Within 3 to 5 days Comments: Your BIOMEDICAL ENGINEERING TECHNICIAN Medication Information: The exam and treatment you received today in the [facility] Emergency Department were for an urgent problem and are not intended as complete care. It is important for you to follow up with a doctor, nurse practitioner, or physician?s assistant elementary teacher for ongoing care. If your symptoms [...] so we can reach you if necessary. [facility] Emergency Department has provided you with a complete list of medications post discharge. Please inform your pin drafting machine operator/provider of your visit and for further instruction on these medications. Any specific questions regarding your chronic medications and dosages should be discussed with your primary care physician(s) and/or pharmacist. Medications That Were Updated - Follow Below Instructions [facility] [address], [place] [id number], [phone] Updated: ondansetron (ondansetron 4 mg oral tablet, [...] drinking abad (more content not included)... Normal [facility] Morphologyon 05-15-2023 RBC morphology finding Nom (Bld) Normal Normal [facility] Comment on above: Order Comment: Order added by Discern. Result Comment: some platelet clumping observed Performed By: #### 1 [id number], 02861267, 1189520, [id number] #### [facility] (DEFAULT) [address] [place] [address] UA Wsido8wh 05-15-2023 UA Amorph. 1+ [facility] Comment on above: Order Comment: Urina lysis Microscopic order added on by Discern Expert Rules system. Performed By: #### 5 [id number], [id number], [id number] ####[facility] (DEFAULT)[address] [place] [address] UA Bacteria 1+ [facility] Comment on above: Order Comment: Urina lysis Microscopic order added on by [employer] Expert Rules system. Performed By: #### 5 [id number], [id number], [id number] ####[facility] (DEFAULT)[address] [place] [address] UA Mucous 1+ [facility] Comment on above: Order Comment: Urina lysis Microscopic order added on by [employer] Expert Rules system. Performed By: #### 5 [id number], [id number], [id number] ####[facility] (DEFAULT)[address] [place] [address] UA RBC 3-5 [facility] Comment on above: Order Comment: Urina lysis Microscopic order added on by [employer] Expert Rules system. Performed By: #### 5 [id number], [id number], [id number] ####[facility] (DEFAULT)[address] [place] [address] UA Squam Epi Moderate [facility] Comment on above: Order Comment: Urina lysis Microscopic order added on by [employer] Expert Rules system. Performed By: #### 5 [id number], [id number], [id number] ####[facility] (DEFAULT)[address] [place] [address] UA WBC 5-10 [facility] Comment on above: Order Comment: Urina lysis Microscopic order added on by [employer] Expert Rules system. Performed By: #### 5 [id number], [id number], [id number] ####[facility] (DEFAULT)[address] [place] [address] UA w Culture if Ind Standard on 05-15-2023 Breakpoint UA Normal [facility] Comment on above: Performed By: #### 5 [id number], [id number], [id number] ####[facility] (DEFAULT)[address] [place] [address] Color (U) Yellow Normal [facility] Comment on above: Performed By: #### 5 [id number], [id number], [id number] ####[facility] (DEFAULT)[address] [place] [address] Culture? Indicated Invalid Interpretation Code [facility] Comment on above: Result Comment: Resu lt created by rule GL_MAGR_ADD_UA_CULT Result created by rule GL_MAGR_ADD_UA_CULT Result created by rule GL_MAGR_ADD_UA_CULT1 Result created by rule GL_MAGR_ADD_UA_CULT Performed By: #### 5 [id number], [id number], [id number] ####[facility] (DEFAULT)[address] [place] [address] Glucose (U) [Mass/Vol] Negative Normal [facility] Comment on above: Performed By: #### 5 [id number], [id number], 5052505 ####[facility] (DEFAULT)[address] [place] [address] Ketones Ql (U) >=80 Normal [facility] Comment on above: Performed By: #### 5 [id number], [id number], [id number] ####[facility] (DEFAULT)[address] [place] [address] Micro? Indicated Invalid Interpretation Code [facility] Comment on above: Result Comment: Resu lt created by rule GL_MAGR_ADD_UA_MICRO Performed By: #### 5 [id number], [id number], [id number] ####[facility] (DEFAULT)[address] [place] [address] UA Bilirubin MODERATE Abnormal [facility] Comment on above: Performed By: #### 5 [id number], [id number], [id number] ####[facility] (DEFAULT)[address] [place] [address] UA Blood Negative Normal NEGATIVE [facility] Comment on above: Performed By: #### 5 [id number], [id number], [id number] ####[facility] (DEFAULT)[address] [place] [address] UA Clarity SL CLOUDY Abnormal CLEAR [facility] Comment on above: Performed By: #### 5 [id number], [id number], [id number] ####[facility] (DEFAULT)[address] [place] [address] UA Leuk Est Negative Normal NEGATIVE [facility] Comment on above: Performed By: #### 5 [id number], [id number], [id number] ####[facility] (DEFAULT)[address] [place] [address] UA Nitrite Negative Normal NEGATIVE [facility] Comment on above: Performed By: #### 5 [id number], [id number], [id number] ####[facility] (DEFAULT)[address] [place] [address] UA pH 6.5 Normal 5-8 [facility] Comment on above: Performed By: #### 5 [id number], [id number], [id number] ####[facility] (DEFAULT)[address] [place] [address] UA Protein 30 Abnormal NEGATIVE [facility] Comment on above: Performed By: #### [id number] ####[facility] (DEFAULT)[address] [place] [address] UA Spec Grav >=1.030 Normal 1.001-1.035 [facility] Comment on above: Performed By: #### 5 [id number] ####[facility] (DEFAULT)[address] [place] [address] UA Urobilinogen 1.0 mg/dL Normal 0.2-1.0 [facility] Comment on above: Performed By: #### 5 [id number] ####[facility] (DEFAULT)[address] [place] [id number] Urine Source Clean Catch Normal [facility] Comment on above: Performed By: #### 5 [id number], [id number], [id number] ####[facility] (DEFAULT)[address] [place] [address] hCG Quantitativeon hCG Quantitative 424405.0 mIU/mL High 0.0-0.6 [facility] Comment on above: Performed By: #### 1 [id number], [id number] #### [facility] (DEFAULT) [address] [place] [address] Coding Summaryon 05-02-2023 Coding Summary HTMLBase 64 KmtkagsrXRy2oWw+PGhl YWQ+VU7PUVEeT83yqSLj tU2oH9EARKxHBercEESK AJvNPlXeubJzSH8skQLu ZXJu IC8+TP1gHPNrDchujVCu x2F4fPO5X26flh2hNDge wXG4PXWzDzNjwszdn5di eRr7WOfxMiamJcDk EIAroH07WEP7hK39Wv52 qXBcnLBhz5dlpOt7JjNf RQUuRZR8lQxkWVqot3Hi QFRqJ84sjYVww9U4 IGNvbGxhcHNlOyBlbXB0 hC4eCThqjymku1irdlgk Byu6ee65vHYmz2H7jFH8 N2BzsmI5PZSczETy GttvrYFKaS1kwifnp9ku qlwtVyKoAFDdAJb1AWm7 JZNblEayRoEpHY75EDI9 OWPzhzWuK2UdSVZx jKvsPdF3n7R3Zo8HI0EU ZdekW0DYFTYPXPhnnVC+ VY17bz34A8EcNiwkTsj5 KAVaNQP2qOA2mJ0x MVXiYRvdv9S4jZH0U6Rx wmZdho1rc9flCCPnSJwa N85caXGea1D9NTBieFX3 UGZnnVfuDtNdaS11 Oyc+OCVqnNdlu2IqTyvz u9ylf5doaEf4CmyhPQOw nmWlzVzrJIB4n6GrTf8b TEIgrLL3nDM0bT9m XtUcXhH0ILtwC662OcLw xKUqCdluV51wQ6YsnRD+ UGDkOps5PZAxxCixZQ8s I7PzGUDloqgjaRFp lNcyOX4sPUQntkfcJBTx rN1eZNGtK1d8IhKgUpP9 AMifY5IiHFQocnknUh19 mY0zDqNnOnR4CIbf P9MwfoP5QLWuiTJjXPim HVH8M22vk7M7VNPsYLTe PUX5aAJ8gU2fkVdavclj bGVmdDsgdmVydGlj MEenVNjwS556KAUhsOgz PkNvZGluZyBEYXRlOiAg MDEvMjUvMjAyNDwvdGQ+ LJJrGVP1eQzjCZCj lUYpTUgqVo4vuObxvGhz AX8cCGCfwnkxWIWhnL1h BRKjlHPpsMsdST1tRUJl oshhk553UmTvMQH1 OIFonTRrT9BvxL3rEbOf NXSwVWBhY0JihPMuXTyu H706OQblXxZ1UMJrcsLb I8CnBBIfoEcaAtD7 v3A4Ti4Ps3GuttuqT2Cd yUUgVzGhJktpBKc6E0Ws PjwvdHI+CE89PWBgMK13 YZl3EXW9nCfwJGuw WLJtD2IlvW3dHkTsTVTd ZGRkOyc+PHRhYmxlIHdp ZHRoPScxMDAlJyBzdHls YU1nLf8jZUNwSFSh wCveiTXdUaVdy3jeIEGm JJkjJG1peQhmH4HwdGW3 DTJnr7i9Oe45E61mO1Fz dXA+BGFjbVX6wVD4 qL9fEkLvGlX8HOzbB437 FuIdpDVeRukfl2bhz0tu fLs4MeE5GAKdokKbtQkz WQN4c0BpHq25L96g IHdpZHRoPSIxNSUiIHZh sCuhrr0hyT8tRy2+PGNv jDG4eFC4eB8zWxTkUjY3 PYwaM651YfTuyRZq Uauvn1sah8uuoTq3KnPa ZPIayyYgfNabBLV5d0Od Cj73T5MvoQhvl2HhGxw0 fn68lXNyc2G3kMQ1 Q4ZjZXWrxpqryRCbaYgv MN1gJEYkdwiwLWOreY7p ESSiE9z8GyRtVwF8XMkj T0SsfiV1EWGyhVRc FWBapPPMhO0dunyth1os zbwuHyTrRNSbMOo1BWz3 XITpsVcxXzRgTGJ3JcZ4 EYH5lWGvfZ3luEkn reiweB9jImc+IZF4qKAv vWIWPC9rFbhzfXC+PHRk LGO5yWttSXidCVKvuX2w UIEgT9f0TzHlJoD5 CSozT0KkvbV4SABmnMUp MUQvmMBSoG4iqpdwj9oi nyxhDcXlBOWfFPj5WOa3 LWFsaWduOiBsZWZ0 RaD2NYE5tJJulP9osStl uhqzxF8yAia+QmlydGgg PIX9NFa9X0RjPwg3FUOs bJoqDL9hlXSxQGow Yt6zeXzclQymJK0uMCSm tqtol512UbOrn2fzEXHb fMAbZHfiCHB4R71lo4V1 SFZyMGEcHJV1mUV9 vM2iyAkntjqneXMecYyn axAhwZijHVwmCWeeG801 YTWxgUilVvEcGLm8W8Ud Tfv2GYHlwIaoAH4b tDBcUBptVn4jxFlgtLhe GF0eHKJkqqdcn251OkXz x6xdFXLriVRzNFloWBR5 Y36es1V3ZSKrAYQj USI2bXM3dX2fwQpbakkw bGVmdDsgdmVydGljYWwt QZzeX678YPBojFtfIvLt jTf1S2CnRoo0KEYj vKzjSF0pbHUkSOolVf3p rHpnyAzkPD5zAUTgngbz f453ByVge3ckLYFvoITb HCtuHTQ2B55ej1N3 QOGtSLXuWMY6hVG8zX5b bGlnbjogbGVmdDsgdmVy kRoeSJwiBEzpW055RETc cDsnPlBhdGllbnQg NHpmSMq1E2LgRdckgOU+ JB87ASKnXY66aEWtzTEm u0jexHy5OhKuVAZuPNJ8 iAdxFDhne9GmEDUr V28bkHEjt8C2JVOluSkh bASnCnUdsBY4tP6aPBfh arswa2emtjsnLuvdt3iv za57qB64C50fMGes ZHRoPSIzMCUiIHZhbGln rs8epI5jBf9+PGNvbCB3 cND1aS7kUBJyOhN8KCnj N876SxKsgVZxBfui k9yuo7uolVe3FnN7GMEl jcStwLbxLCN4t3IcEe99 Q60lWKsvUTXlNOUyEKHs DNMkjNfyoq3sqJ2p Ii8+XKNpcNY0bUE4pO8p JiMbFkR7LEquD315YiJx uEOfGeqfR93eS8XruEU+ SUMpDdr7AQLurXia KW5pvNBpMQjpZm6sMMW1 QdXeSqBfDAihU9AtNTEi jjzosjkyuPY5YKOmMVLp gK63Dq6cjAyhRIPy eEENfN0dmbphp2espiwj HsZqTKKsVSw6ARj9HDRo mOmwTzHqDOP1UzS5DSN6 gEDeuK5twXbkwewt tS3mK6FhQSVxojqrHe79 yE7jQqHwBiM5IOyuObh+ N8iFQeELXWdgM9tHBFZP QSeXAD9PRQzwyCN+ NGXbANT1rGkkXUkjIXNs uE9tLUYzM1a0ZhLkHmA6 HPdkF3RzZJXbxdfhJk91 aF3jCfVyYxG2NMfo R9DvckM9UYJkzSLhJTxk QYF8J09mq5N2UTLzEGMc BEP1vWZ0bX7auSyngtjn bGVmdDsgdmVydGlj KUjfJXgfY780DBUsrIpt ZhM4TwNaNoFuBWG7X6Mb Hla4IGDfcMezAJ0zrCOo QAdbZz9wvLajtMdk PE6ePJOaouccONSjqX0l IVGzhSXzoMwyNF7bJWCg tycbl324LxQrJSK0JPZw sLEhL1ElkM1nZiHz JKGaVKYmJ9SfpBRtZWxf J684EWplZdU2DTKmptXk B3SaBKQahTooLgA8y1J6 Uf9uWUDFFFRqovjl dGQ+JWWzGDH2wOgdEZik GWWxeG2pKIIoX8e3DoKo SpG9IUcsD5VpBWArxdhs Yt40yW8zNyVeYkV0 NDaeW4XsrwE0RAGxhLGg WHolQTM9W91hq0Q6LMCv WMPkXFP3wQU3bV6qyXiw bjogbGVmdDsgdmVy hIxjWSclXWbvI590VIUp cDsnPkZFTUFMRTwvdGQ+ MGEvRCF8jIkpWKfiREIv iX5xVJWfA5c2PwXr HiP4OEgyJ7AcJLRyfadn St36wD6vFvJtBvD3HUle Z5YtasY7XWTohAGrARfx RMJ0E70jg5M3QFDk TFKuQCM8eIS2mD7ygIbl bjogbGVmdDsgdmVydGlj ZMvcWBsvR157XNDxuJkm TsPtPBIfMQ8ubWac dGQ+JG49db03S2XaMbhu Xsn1KKYuQEX7pUS5iV0s TMKyJCyxy1L3sOX8H3Ud kyVgmi7br1mfCFFf PIexO39zwXNsl6A5TNQv dRG8WNBhqSrqDvShiA96 Oyc+CYTqeCcnd2QsPhef v3mfq0hciIj5GsEg CQAsehVwrQewJHI9l9Nz Xo25R93nNSdrYXDrAPAi FFMhINHjwPfbin7wwH3z Ii8+ITEtcQS2uJI1 xT6bRpClNlB9EEvcE012 AmIuxSDzEnosn1djz1pe cLe6LnYvAJBshhKwdPoo CCD5p8BzSi40Z3On eFixj1HcUqr3lr09qUMr q0H1hNV4V1CwZSIsbhox qWSdoZlqOI1xURFdzgwu ALGnjQ8vROWkD2a1 VzAfZyB7EZlxS7WjjgS9 YXPvzZJtTKZntJIJoV5g xjpkt1tdhlvtUoGkEWEd KKl6IPn7ZRIouSol UeXhYDA3NgE2FEM7yXXx pB8pnSmccysuoB7wTme+ RXr7o1tthDQwSI2usNY8 WF04VF88yCAxm0A2 gHX2B9CnXPEczgequadx wIO2ISElPANrqT03Pl9n eTjiQb6cVYZjJUV1CQSg iOXwK8EcdI6vTbKs MXGnIMTsF1MsfVLqAJxq A048CKjvZjQ1QSKmqbUy K5YcUBAkdXiqQzS8n0B7 Se1KQW21HE54PO81 xPIig6G2kKR2G4WoBYCy vlyqwuicgLD9AJUhSEWu iP26Us9wxIkvTh4cLJNu TEF4DROsnSWyD2Dk eC1xFnIhXRAhGEGaI9Cv cPImJNgkT484ZGwtEmD3 SDPxztUiZ5OvRJLmpRsj GbX5d5H0Qs2XRi21 EO31KC68hYOpy5K4nNH2 E1FaTEMgoqwbwvwprTQ9 LCXrZREekG43In9hmTfz Zt9fEINuTBT1SZYp gJRaF5VsfH0eSdRqEYAr UHPeW9HatBPlRIjtZ678 HFrsPsX4BFYvjnGwU4Gt SDQamUcuAvW7p7Y6 Ri6WRAmbmwk0X8GbVypq dHI+XI10AVGaAR29eVTo xIGdn5izxVl2BqZuBYRt WTE2iDkzFEefu0Eh ZXI (more content not included)... [facility] [place] Coding Summaryon 05-01-2023 Coding Summary HTMLBase 64 DcqwdpneLQs8oAe+PGhl YWQ+WG0WVIDdW87xcWJr oG2rS0UXAGhNXaofOLQM YGdTIaIxrmOlUJ2hjVNl ZXJu IC8+JG7zDOUhHyjogSVt s5B5pTN0Y77dcy7tXQqp hMS8TPPwUhHddvenq3va qOy0ZUooHqgrGfEu KGTwbQ83YNB1gU06Rl57 qYTkxLLnn9tcgDl7JvKd NDKhFCA5oPnnEIaki0Pa RWLeK61tsCWdf0G0 IGNvbGxhcHNlOyBlbXB0 gN8rJLwcxqfst7wkdqbh Gpf3yq98rDYov7B8qJI9 H2SzegF4UUBmhAYy DfthpIWMdG0glybmn0xf yyjmJcVqZHRwBYo7EHs4 HEFekBijPlSvOP50SRJ4 XSJdesSbF1SpEBQd jXoeElK4k3N5Ee7OR5IW QnhjM6YNYVLQQIxphWB+ DY43bk97D4ApVensPho8 VFBzNQR9zIT3uF7c TGBmZArus0L0oRX0K4Ne tqIeuo4oh2lbIZKvPRdf G39gwVQif3W7ISDnaEG4 COCzrSwlCiKgqN82 Oyc+YAClkXmox2PvTxtp k9jam0fenZg5PoakKJFj nlJxqYzmEGC7a8AbBt9t KDGnwAP4mTK9cK0e LmKfIrA2KIngI079OkKl gEUuWehiR04wZ5LjeRZ+ AJLiEhd5JHEudOdfDD4b K1BsBDSfwzllvSBy fBssOR9iBFMtzfnwECHf jE7aJBJmQ4c4EuSjXnE8 ENxnP3TjQQNmkfjdGe26 yD1dJlRjLsX1OYhk Y9PuemE6CLJsfLNyLXbq JHS0X25sa5W7WXZbKHKw RGX1gEU6cZ0yrTlwngfc bGVmdDsgdmVydGlj SSkqPGjbA466VDIfnZpl PkNvZGluZyBEYXRlOiAg MDEvMjQvMjAyNDwvdGQ+ ORBeMVC7lPrkAXDr nTEtJAtcJw4ixNqhtCkl TT7yYRZoxyqeOLJqnX0y VLAoaVGnuEonWA8jIYSg kpwih760TgCkETY3 TOUscETsU9DojV0zDsGm EXXsXRZjX7BwtRCdRXiu X441ADziHlW8ZAKdnbXb J4XfDHKbhLsmQzD6 y1G5Bb0Ch1NkiximY9My zPQeVsKgImlxYHd4F4Rh PjwvdHI+IX08IVZjYA30 NAz0HKF8mEneYKpp OBFwG2MjxS0mEpLkXIQl ZGRkOyc+PHRhYmxlIHdp ZHRoPScxMDAlJyBzdHls FS9cRa8iWQFeHYFy lVsqaVYrQcOwv4qfLRYv IAulJO4rhJitG1QqpBG8 FCRmo2s7Cs43H57xW4Kq dXA+QCPpgWC5cKX1 bA4dBcViKdW9KFzoO312 UbPkuWSkXjqce3zlk0ao lFa5RdN1OFKpchAxuZrw MOC1a9CdGm60V57u IHdpZHRoPSIxNSUiIHZh pOwguy2ssB1mRx9+PGNv vYU1sQJ5tQ6oRjJfXaN6 DBxeS278CbAzoHHh Wxdjr4ivd7bdlMm8NmKj IBYnppMugZweQBX2y5No Zl50G5WkeTdlv9ReObf4 ie36nHUec2Q1nAC3 H2JxANHoavwkwQFjmDoh EQ9eTADkkxspRZAawT4v RIWiV9n8SjOkElS5CBlr V1AfxnC7GCJcjBNg DBRbxNRUsY7nmbgzz2jr frzlKvXoPRNzEGh4CXu4 WXUepFgxCcIeIWW1EoC0 UCR3lQJzaP8noGur yauwyZ7tJgi+KIY9xACl xHAVXB1mNbpufWT+PHRk TQC0gZveESdrBDTvzV7g WKRlD3d6TrLdXcO6 DTzqL0OeppU8YNQgiQRr NMSlrNPGjG9nzqngr1aa tbjxShMiKVIxTCi4NYb7 LWFsaWduOiBsZWZ0 FnF6ZRQ8vRIesE5ynWfm wnqvoI5vRoa+QmlydGgg VEQ3TTc8U0QrLac4OGLp mSqsUQ0mmKPuIHqd Az1gaYbarAupAQ0oCSNl pjydh288CcLva7goCHAu xBMeTSfjKXI2I50li4J6 QQAdHXXuMVL7jHV6 tG8uaRvpsarnxAKfxZkj lzTlkGdoZAgnRSxsA070 WCBpeKhhImEiNIl8E4Yw Sdt2MHIsvCfrYM3e eMAcUTbjQy2erRkyrMtg NT0tZRTicvlhs450SsKr w6mmTPXzdQRiBIxrDBF8 Q79oh9Y1HMXeIJRl RDQ4gMV0oU3siRdrtzln bGVmdDsgdmVydGljYWwt BCzxD287FADlnJsvJoGg vJw0C7YhTfh2HQPu hVvsIG2pjHUaFAxlCh7a fFbapOhrBV5eCCQrkgoc l433RoKnt9zyODYwkFMf IVevLDN0K05fv7G2 BRSlAEJxHUS7pHZ0jO2x bGlnbjogbGVmdDsgdmVy dJvjPFlbIYtxY642NSNf cDsnPlBhdGllbnQg GNmfUOz1X6QdIkfkkET+ MH14RAJpZW48qDFwfZNk g3bpnJp9TsFbFHAtHCY9 cZflSJdqu2RpPXFw X30bzNVlf2V5COSpmJod oFOjTyRsuYC1xT8cHPer dmaxz0tubrcmKymdk4dq ze71gP45E72kBTim ZHRoPSIzMCUiIHZhbGln pj7rxV3rPr2+PGNvbCB3 dOD3mW9wWXBpQqV9JVkz S265ViIuhBUfNskr n3vxf0qckSw4PeT6UNWg ckHirLspALT0m7QnAm13 O25rYDrtWUZqDUBwRSRn RJIgiOxqnt6byN4j Ii8+TCRcdFZ4nNW3pD3q HnJsVzS4TZqtZ155NfWd mAEdPvddH64pS1RhmOZ+ HSSrLwp3JFYfnXto DT8ndRCtDCkvAg7rFBC5 TsErTbWdWYdrK4XqPKQf lxyatxvuuEO7NNYiVPSi qL04Vu4jaMpkQBYj jJEGzR1brxowv9qsgzjs MnWbMSQcIVz0NNx9AQVf xLnmEhVmDEK3QpB2HQY3 lCUxyA5idOhwhvii jI9jT9ZwABCcanlnBg67 uK3rPlDxPxE4AGqbVam+ H0qZFfPMDNyxW6zXLAIJ SGvQYQ8FJSqdySB+ HWUkETT5nIniCFraKGGj wR1dMBLpG3e7CvZqQwD4 DDkxV9SoVJYuolmkAm78 uE8yFhCcQvM8KIil L6ZecuN5EGDddGQkOWsq VGV7B18aa8J7LQJnGUFo LOY7lEK6jS4jbRnjnqis bGVmdDsgdmVydGlj HEajLUsdG215VVVrnWjj RlY7MdRyAlFuUMI2B9My Ixp2EQCzrPoiHC3sqTGv BSmjVg0odMixbLhq VB3dLRUfcohiSHQehR9v IKEymLXypTrhWM6iGWRk wwrfh192WsJkROE8ZFIi xWPzU4PttD5jGwHk KHJuQEUaD7PuoDIpRLqu D437GSrtOjF8WYVpsgYt C5InKNEniKoeRmZ9z2B3 Gc5cODAAZWUsqecc dGQ+LGHjWAD5eRdvIFud IFNbzL3dJKUmP9l7TaUt LcE1ZMzfB9WmYVVpsobo Hb76cA8fVtVhGjL8 AJjhE2GkgmR8PRCzjNDx TAbhQIU1U02yk9L2FNUj CRCgRJQ9aCI7yJ1yyVzt bjogbGVmdDsgdmVy bZpsUGowKWeuO080FEOk cDsnPkZFTUFMRTwvdGQ+ PDFhNMT8mTltVZdjUJVt yO2pLPCpY9h9ZcJp OwP5BGkjS9FnQNNhjedk Ng41mJ5hLtUqBuF9ILya N8BqdpY4UNVhxANrFQlq AUN3E08gp5W0GHEv NYGfTTV7lOV7tW0ctFut bjogbGVmdDsgdmVydGlj ZRfvGMttZ538BYUkfBii Qg8MGK47SS36H5Mc PjwvdGFibGU+PHRhYmxl IHdpZHRoPScxMDAlJyBz tYhzUA7jHq8iJKDaLNWp eUglqASvFeWbe1qj QDKjNFntDV4gwHqsH9Hs dPG2QKUnu3q0Kr74U26a H3AwlVL+EJVthHV7aJT9 jR6dUbWlPjP3HMhm P722DsWgxMQkXdrkq9fr j0ppgYh5XsMxWZMipmXi eGiiGER3n3KqWw05V16o IHdpZHRoPSIyMCUi ANDjcDqanc9hcE0aZb2+ NWOrqDZ3nGT5qF2vCxTs CxM5LAnpK268MdChqBQt UfqqG87fL4JzzUT+ FGNkDep9WCRxxUckXE8y rQEpEIrwPk0gUGX7FnFa FlKpDSqgN8DtFLRvjcfb rxrxsQK0VXNdOSAr iV92Sj5wlDnnEz0gEJXy ADX6KZEjrIUwQ0XgaE8c CvXiIRMmRLQrL0DxhPGq IDvjE269DShaPyF1 AZNufuDuT4OpFKPlfBai EeP0p6H7Jb1BbEiesFRs AB2oTfReDCr7X4UpHnv5 ZDPbcDdfXP8flMWo GYnlXk3foXcpbYrdMZ4g DYZglbwzt142IjSxe3zx HYOgsAEtBAqzSHH3V84s g3V3XLNgYCCqSUE5 xZH5cC5tsXqvzdqwxHWk dDsgdmVydGljYWwtYWxp X812EIHtsMdxClZWPss8 R1DmGwa9GWAzsKie DQ5fpGTuQGnqUk8arJbc iZyvNV1mLDNirztqw967 CkAgd2dyWJEesCBiPVfr URT5F00kf0B5WMEv WBDpDFX5mFE0sM1kuGpr bjogbGVmdDsgdmVydGlj KMglDLmrI061TOQzbEtp Yr5VFnt4D7PdXiq4 MMFszXlnEH9wgBSbCDey Oq9biYmphGmsJR4kVTYu mqipd863JpMnk9pxWOXq aWCyPBpwMJF0L48n y0C1SFMqKONuDOR4sME2 zV6jlHxerbaodJZmuZnr qoYtfWrhBXeySDfrM773 IHRvcDsnPlBheWVy OjwvdGQ+LB89vd13A1Dh ObsgHlv9OYMyTWN1hFD0 iM6eYHDgKRmnw6X8mYU9 V8DbpbCkhg1aj9tv YXB (more content not included)... Normal [facility] .Auto Diff 104-15-2023 Auto Young % 8 % Normal 04-19 [facility] Comment on above: Performed By: #### 1 [id number], [id number], [id number], [id number] #### [facility] (DEFAULT) [address] [place] [address] Baso Abs# 0.1 x10 Normal 0.0-0.2 [facility] Comment on above: Performed By: #### 1 [id number], [id number], [id number], [id number] #### [facility] (DEFAULT) [address] [place] [address] 29745 Basophils/100 WBC (Bld) 1.0 % Normal 0.2-2.0 [facility] Comment on above: Performed By: #### 1 [id number], [id number], [id number], [id number] #### [facility] (DEFAULT) [address] [place] [address] 37906 Eos Abs# 0.1 x10 Normal 0.0-0.4 [facility] Comment on above: Performed By: #### 1 [id number], [id number], [id number], [id number] #### [facility] (DEFAULT) [address] [place] [address] 60131 Eosinophils/100 WBC (Bld) 0.5 % Low 0.9-4.0 [facility] Comment on above: Performed By: #### 1 [id number], [id number], 6792970, [id number] #### [facility] (DEFAULT) [address] [place] [address] 34993 Lymph Abs# 2.9 x10 Normal 1.3-2.9 [facility] Comment on above: Performed By: #### 1 [id number], [id number], [id number], [id number] #### [facility] (DEFAULT) [address] [place] [address] 58111 Lymphocytes/100 WBC (Bld) 30 % Normal 14-48 [facility] Comment on above: Performed By: #### 1 [id number], [id number], [id number], [id number] #### [facility] (DEFAULT) [address] [place] [address] 47867 Young Abs# 0.8 x10 Normal 0.0-0.8 [facility] Comment on above: Performed By: #### 1 [id number], [id number], [id number], [id number] #### [facility] (DEFAULT) [address] [place] [address] 75996 Neut Abs# 6.0 x10 Normal 1.5-9.2 [facility] Comment on above: Performed By: #### 1 [id number], [id number], [id number], [id number] #### [facility] (DEFAULT) [address] [place] [address] Neutrophils/100 WBC (Bld) 61 % Normal 44-88 [facility] Comment on above: Performed By: #### 1 [id number], [id number], [id number], [id number] #### [facility] (DEFAULT) [address] [place] [address] CBC w/ Auto Diffon 4 Erythrocyte distribution width (RBC) [Ratio] 13.4 % Normal 11.5-15.0 [facility] Comment on above: Performed By: #### 7 [id number], [id number], [id number], [id number], [id number] ####[facility] (DEFAULT)[address] [place] [address] Hematocrit (Bld) [Volume fraction] 40.7 % High 33.7-40.4 [facility] Comment on above: Performed By: #### 7 [id number], [id number], [id number], [id number], [id number] ####[facility] (DEFAULT)[address] [place] [address] Hemoglobin (Bld) [Mass/Vol] 13.7 g/dL Normal 11.3-15.9 [facility] Comment on above: Performed By: #### 7 [id number], [id number], [id number], [id number], [id number] ####[facility] (DEFAULT)[address] [place] [address]4822 Man Diff? Auto Invalid Interpretation Code [facility] Comment on above: Performed By: #### 7 [id number], [id number], [id number], [id number], [id number] ####[facility] (DEFAULT)[address] [place] [address] 24727 MCH (RBC) [Entitic mass] 29 pg Normal 24-34 [facility] Comment on above: Performed By: #### 7 [id number], 07174557, [id number], [id number], [id number] ####[facility] (DEFAULT)[address] [place] [address] MCHC (RBC) [Mass/Vol] 34 g/dL Normal 26-37 [facility] Comment on above: Performed By: #### 7 [id number], 50454879, [id number], [id number], [id number] ####[facility] (DEFAULT)[address] [place] [address] 31655 MCV (RBC) [Entitic vol] 86 fL Normal 81-100 [facility] Comment on above: Performed By: #### 7 [id number], 59611070, [id number], [id number], [id number] ####[facility] (DEFAULT)[address] [place] [address] 36256 Platelet 430 x10 High 138-427 [facility] Comment on above: Performed By: #### 7 [id number], 87451136, [id number], [id number], [id number] ####[facility] (DEFAULT)[address] [place] [address] 32526 Platelet mean volume (Bld) [Entitic vol] 8.5 fL Normal 6.3-10.2 [facility] Comment on above: Performed By: #### 7 248498, 46478121, [id number], 6352452465, [id number] ####[facility] (DEFAULT)[address] [place] [address] 80641 RBC 4.75 x10 Normal 3.70-5.30 [facility] Comment on above: Performed By: #### 7 689087, 94914694, [id number], [id number], [id number] ####[facility] (DEFAULT)[address] [place] [address] 65106 WBC 9.9 x10 Normal 3.5-10.5 [facility] Comment on above: Performed By: #### 7 539862, 30194652, [id number], [id number], [id number] ####[facility] (DEFAULT)[address] [place] [address] 70605 CMP Standardon 04-15-2023 eGFR Non AA >60 Invalid Interpretation Code [facility] Comment on above: Performed By: #### 1 [id number], [id number], [id number], [id number] #### [facility] (DEFAULT) [address] [place] [address] eGFR AA >60 Invalid Interpretation Code [facility] Comment on above: Performed By: #### 1 [id number], [id number], [id number], [id number] #### [facility] (DEFAULT) [address] [place] [address] Albumin [Mass/Vol] 4.5 g/dL Normal 3.5-5.0 [facility] Comment on above: Performed By: #### 1 [id number], [id number], 3299679, [id number] #### [facility] (DEFAULT) [address] [place] [address] Albumin/Globulin [Mass ratio] 1.2 {ratio} Low 1.4-2.6 [facility] Comment on above: Performed By: #### 1 [id number], [id number], 9411901, [id number] #### [facility] (DEFAULT) [address] [place] [address] Alk Phos 68 IU/L Normal 32-91 [facility] Comment on above: Performed By: #### 1 [id number], [id number], [id number], [id number] #### [facility] (DEFAULT) [address] [place] [address] ALT [Catalytic activity/Vol] 34.0 U/L Normal 14.0-54.0 [facility] Comment on above: Performed By: #### 1 [id number], [id number], [id number], [id number] #### [facility] (DEFAULT) [address] [place] [address] AST [Catalytic activity/Vol] 27 U/L Normal 15-41 [facility] Comment on above: Performed By: #### 1 [id number], [id number], [id number], [id number] #### [facility] (DEFAULT) [address] [place] [address] Bili Total 0.7 mg/dL Normal 0.3-1.2 [facility] Comment on above: Performed By: #### 1 [id number], [id number], 0775604, [id number] #### [facility] (DEFAULT) [address] [place] [address] Creatinine [Mass/Vol] 0.77 mg/dL Normal 0.60-1.30 [facility] Comment on above: Performed By: #### 1 [id number], [id number], 9335863, [id number] #### [facility] (DEFAULT) [address] [place] [address] Globulin (S) [Mass/Vol] 3.6 g/dL Normal 1.5-4.3 [facility] Comment on above: Performed By: #### 1 [id number], [id number], 4454714, [id number] #### [facility] (DEFAULT) [address] [place] [address] Osmolality 269 mOsm/L Invalid Interpretation Code [facility] Comment on above: Performed By: #### 1 [id number], [id number], [id number], [id number] #### [facility] (DEFAULT) [address] [place] [address] Protein [Mass/Vol] 8.1 g/dL Normal 6.5-8.1 [facility] Comment on above: Performed By: #### 1 [id number], [id number], 0066653, [id number] #### [facility] (DEFAULT) [address] [place] [address]380 Urea nitrogen [Mass/Vol] 10 mg/dL Normal 8-26 [facility] Comment on above: Performed By: #### 1 [id number], [id number], 4942958, [id number] #### [facility] (DEFAULT) [address] [place] [address] Urea nitrogen/Creatinine [Mass ratio] 12.9 mg/mg Normal 4.6-16.2 [facility] Comment on above: Performed By: #### 1 [id number], 87042070, 9392235, [id number] #### [facility] (DEFAULT) [address] [place] [address] Calcium [Mass/Vol] 9.0 mg/dL Normal 8.9-10.3 [facility] Comment on above: Performed By: #### 1 [id number], [id number], 2788255, [id number] #### [facility] (DEFAULT) [address] [place] [address]4968 Chloride [Moles/Vol] 104 mmol/L Normal 101-111 [facility] Comment on above: Performed By: #### 1 [id number], 03424104, 7254446, [id number] #### [facility] (DEFAULT) [address] [place] [address]243 CO2 [Moles/Vol] 23 mmol/L Normal 21-32 [facility] Comment on above: Performed By: #### 1 [id number], 99796345, 3840058, [id number] #### [facility] (DEFAULT) [address] [place] [address] Glucose [Mass/Vol] 94.0 mg/dL Normal 74.0-118.0 [facility] Comment on above: Performed By: #### 1 [id number], 25893245, 9806196, [id number] #### [facility] (DEFAULT) [address] [place] [address]78 Potassium [Moles/Vol] 3.9 mmol/L Normal 3.6-5.1 [facility] Comment on above: Performed By: #### 1 [id number], 45610970, 6899775, [id number] #### [facility] (DEFAULT) [address] [place] [address]202 Sodium [Moles/Vol] 135.0 mmol/L Low 136.0-144.0 [facility] Comment on above: Performed By: #### 1 [id number], 99301260, 0785333, [id number] #### [facility] (DEFAULT) [address] [place] [address]200 Anion gap [Moles/Vol] 11.9 mmol/L Normal 5.0-19.0 [facility] Comment on above: Performed By: #### 1 [id number], 98419978, 9228634, [id number] #### [facility] (DEFAULT) [address] [place] [address] ED Clinical Summaryon 2023 ED Clinical Summary [facility] Emergency Department [address] [place] [address] ED Clinical Summary PERSON INFORMATION Name: LIA DESAI Age: 22 Years Sex: FEMALE : 2000 MRN: Acct#: Visit Reason: Vomiting - ; NAUSEA, VOMITING, 6 WEEKS Arrival: 04/15/2023 14:48:29 Discharge: 04/15/2023 16:38:00 LOS: 000 01:50 Check In: 04/15/2023 14:48:29 Checkout:04/15/2023 16:38:00 Address: [address] [place] [address] PCP: ROBERT MARRERO PROVIDER INFORMATION Provider Role Assigned Unassigned Sara RN, Sera ED Nurse 04/15/2023 14:50:36 Elsa Robles-C [...] EDUCATION INFORMATION Instructions: Nausea and Vomiting, Adult, [id number] Follow-Up: With: Address: When: ROBERT MARRERO [address] [place] [address] Within 3 to 5 days DIAGNOSIS: 1:Nausea/vomiting in Patient Understands: Yes - Patient/family/careg iver verbalizes understanding of instructions given Comment: Normal [facility] ED Patient Summaryon 024 ED Patient Summary [facility] - Emergency Department [address] [place] [address] PATIENT DISCHARGE INSTRUCTIONS Patient Information Name: LIA DESAI Age: 22 Years Date of : 2000 Reason For Visit: Vomiting - ; NAUSEA, VOMITING, 6 WEEKS Arrival Time: 04/15/2023 14:48:29 Primary Care Physician: ROBERT MARRERO Attending Physician: Yassine Maldonado MD Comment: Visit Diagnosis: Diagnoses This Visit Nausea/vomiting in (O21.9) Vomiting - ([id number]) The Pharmacy at [facility] is open Saturday through Saturday from [...] problems; contact the [facility] 29/10 Crisis Hotline -Text 5LQNV dd [phone]. If you received any narcotics, sedation, or [...] With: Address: When: ROBERT MARRERO [address] [place] [address] Within 3 to 5 days Medication Information: The exam and treatment you received today in the [facility] Emergency Department were for an urgent problem and are not intended as complete care. It is important for you to follow up with a doctor, nurse practitioner, or physician?s assistant elementary teacher for ongoing care. If your symptoms [...] so we can reach you if necessary. [facility] Emergency Department has provided you with a complete list of medications post discharge. Please inform your pin drafting machine operator/provider of your visit and for further [...] other disea (more content not included)... Normal [facility] Extra Greenon 04-15-2023 Tube Collected Yes Invalid Interpretation Code [facility] Comment on above: Performed By: #### 7 [id number], [id number], [id number], [id number], [id number] ####[facility] (DEFAULT)[address] [place] [address] ED Clinical Summaryon 2023 ED Clinical Summary [facility] ? Urgent Care [address] [place] [address] Clinical Summary PERSON INFORMATION Name: LIA DESAI Age: 22 Years Sex: FEMALE : 2000 MRN: Acct#: Visit Reason: UC - Nausea; NAUSEA Arrival: 04/12/2023 09:25:14 Discharge: 04/12/2023 09:56:00 LOS: 000 00:31 Check In: 04/12/2023 09:25:14 Checkout: 04/12/2023 09:56:00 Address: [address] [place] [address] PCP: ROBERT MARRERO PROVIDER INFORMATION Provider Role [...] Sickness Follow-Up: With: Address: When: ROBERT MARRERO [address] [place] [address] Within 3 to 5 days Comments: Diagnosis is history of nausea vomiting, during . We provided you with medication help with nausea. Keep hydrated. Eat light, over the next 24-48 hours, soups, Jell-O, avoid heavy meals. Follow-up with your own primary care provider, or your BIOMEDICAL ENGINEERING TECHNICIAN physician in the next 3-5 days, for reevaluation. Return to the emergency room for worsening symptoms or concerns, worsening abdominal pain, worsening nausea or vomiting, spiking fevers, acute shortness of breath or chest pain, or any questions DIAGNOSIS: 1:Nausea and vomiting during Patient Understands: Yes - Patient/family/careg iver verbalizes understanding of instructions given Comment: Normal [facility] ED Patient Summaryon 024 ED Patient Summary [facility] ? Urgent Care [address] [place] [address] PATIENT DISCHARGE INSTRUCTIONS Patient Information Name: LIA DESAI Age: 22 Years Date of : 2000 Reason For Visit: UC - Nausea; NAUSEA Arrival Time: 04/12/2023 09:25:14 Primary Care Physician: ROBERT MARRERO Attending Physician: Oneil Salomon Comment: Patient Education With: Address: When: ROBERT MARRERO [address] [place] [address] Within 3 to 5 days Comments: Diagnosis is history of nausea vomiting, during . We provided you with medication help with nausea. Keep hydrated. Eat light, over the next 24-48 hours, soups, Jell-O, avoid heavy meals. Follow-up with your own primary care provider, or your BIOMEDICAL ENGINEERING TECHNICIAN physician in the next 3-5 days, for [...] these instructions at home: Medicines ? Take fagh-upj-cdbsamh and prescription medicines only as told by your health care provider. Do not use any prescription, nvpc-jwq-ffsontj, or herbal medicines for morning sickness without [...] to yo (more content not included)... Normal [facility] 024 Urgent Care Record [facility] ? Urgent Care [address] [place] [address] PATIENT DISCHARGE INSTRUCTIONS Patient Information Name: LIA DESAI Age: 22 Years Date of : 2000 Reason For Visit: UC - Nausea; NAUSEA Arrival Time: 04/12/2023 09:25:14 Primary Care Physician: ROBERT M[facility] Attending Physician: Oneil Salomon Comment: Visit Diagnosis: Diagnoses This Visit Nausea and vomiting during (O21.9) UC - Nausea ([id number]) If you received any narcotics, sedation, or [...] With: Address: When: ROBERT MARRERO [address] [place] [address] Within 3 to 5 days Comments: Diagnosis is history of nausea vomiting, during . We provided you with medication help with nausea. Keep hydrated. Eat light, over the next 24-48 hours, soups, Jell-O, avoid heavy meals. Follow-up with your own primary care provider, or your BIOMEDICAL ENGINEERING TECHNICIAN physician in the next 3-5 days, for reevaluation. Return to the emergency room for worsening symptoms or concerns, worsening abdominal pain, worsening nausea or vomiting, spiking fevers, acute shortness of breath or chest pain, or any questions Medication Information: The exam and treatment you received today in the [facility] were for an urgent problem and are not intended as complete care. It is important for you to follow up with a doctor, nurse practitioner, or physician?s assistant elementary teacher for ongoing care. If your symptoms [...] so we can reach you if necessary. [facility] has provided you with a complete list of medications post discharge. Please inform your pin drafting machine operator/provider of your visit and for further instruction on these medications. Any specific questions regarding your chronic medications and dosages should be discussed with your primary care physician(s) and/or pharmacist. New Medications [facility] [address], [address], [place] [id number], [phone] ondansetron (ondansetron 4 mg oral tablet, disintegrating) [...] included)... [facility] Coding Summaryon 03-06-2023 Coding Summary HTMLBase 64 GrhlzuvhGEl6mRn+PGhl YWQ+CN4VOEHcX39oyCRt bB8vZ0GJEKtLDdxeEFIX DAkXGdAylkJqBH1hbSOu ZXJu IC8+WR1fGTEoLrekvYLk v4D8xIB7M59czq1xTKaq aRD2OCFhOiDuizbhc3cr rJd7HTfpOrebPpXk KZKyfH52WFG9iG38Qb66 vOTmvEFuc1pkzJq0AvIe JSAsVUZ0fZviFTiie7Ci YUNdX52mkCUha7G5 IGNvbGxhcHNlOyBlbXB0 sU4qWGlzelsli5jtblcz Oxy2hd32mNYel0Z4uGX7 F0PibpK0LDDdsNEr OlstjKZNkR5uedehl6tr wyukFrZsZZPsHJz5XXe3 XWMomBdwGyGqYT06FPT9 PJDmaiFwH8LjRWGv wYfdWlS4v8Q4Hs1VJ7TH XkzcH6BBFPIDTIxruQO+ LY28yv39Z9AyMoqbZoj9 VWSdNQX1kZL3zQ2i DIXiNDxpy6D9hLA5L7Ct zxWhim8tm8zvXCNeJAfy W68cdGOcc1L0STWqnRI4 MSKymTnuYbSilX20 Oyc+KCBsfEuij0RsUsna l2jzx8ngkPo6MoglWAPy avJbsTujWBK8p8UoHi1u BDYhbKF7uBL7yS4m NeGyUsU0SJnuQ874WoGk cIIeVpcjY84zD3YugLV+ CXWaSck4OSEqdKbgEN6d M1JjLPQjrwyhlVZk mQsfYB9yOMLitcrgEPCz xY2mOJNdZ4d3RfNnEcW8 AJquK0SiGPOtnewqUe03 hE5zHvYkXeN3FHak J3MrycA4YEHqtCPsMXxw CSG8G13od3P2JHKzCAWj PJZ6wLA4gU8osQuvpytv bGVmdDsgdmVydGlj RSvkLVkbW474INGpkXva PkNvZGluZyBEYXRlOiAg MTEvMjkvMjAyMzwvdGQ+ TFNiBKU0gTtjTUDm oJHeQZlpMf8ryIbvpBxz ON7mFMExtvqoHGMcwP2u ZJJqsYNnyJmnXM0sNXWm pqsta734ElLiFRK1 SRQoaTGnL8DqxR1dXkIy MKWvSWZiY2EaqSXzUEeu C143FDqeAdI2PYBdjaVn M8QmOBDmfSmeUjA8 k6C1Ek6Lf9DbuwbhL2Mt vBCqXvIsZlidNXt1Z3Jd PjwvdHI+JH25OIWeQX38 APf5WPA7nGbrDGwf CGIvO3TdhH2rFhRfVLDu ZGRkOyc+PHRhYmxlIHdp ZHRoPScxMDAlJyBzdHls YZ2gAk4eRNZhXSFy oVfmpNJkEdCxv6kbESEm HEbrLB1vfSkqU6PbqQT1 YANpv9m3Zn84P86lP9Yv dXA+ULHiaGE5oFK9 xE4zNwXrVxJ5EQajM176 UhXlpOVmOylek8rcq5zy uXg0SuM3SSAjzvIokYxt JBM7k2HzNn72U46l IHdpZHRoPSIxNSUiIHZh tEuegy8xrN5sDo9+PGNv yEZ1iIJ1sS6wMmIvAbD7 ZKkoS164PnUboBIr Iblfc4tpy4bkySk6BqVo MHOdqmDzvRxgKJF5f2Oa Aj49W6AvvJfdj9LgOyw1 lb80dMLtd4L9jML3 M7RkKSYcvvkufCRzqAno QN3jEDLdiomgWBAwbP0f PULfB9a8YuZfAvN3HIji I5MchnK1NZWplKPo JRNbhWHRrU1sztawe3bz gmmmKvGqAKIwWMq5NYh4 AWWrnMtnVcXoUXS5UqR7 SQE9mDMyiS1osTol bqvpoO7xSvd+SLH0wUVe vCWIYW4qCtvbmAS+PHRk IDE8uSctWPnjUONuiJ3l YKOfA9f5NkRoDpJ1 ESmkH6YyeaJ9DOAprERh XDLntBAHmE1sjlocc0nb hzgkOhKkZDByBAr6LVq2 LWFsaWduOiBsZWZ0 HnQ6TWH3uLXqnP5icCzb yirktY1fIyk+QmlydGgg IPM6NRr4R6HyArh7RHSd pSibGX8dgTUfEJgb Bm3zdYhvyDcqTB5jQOZl ikljo056DyEyv3hvAZMn zAGpJHxxUGY2K78fz0H7 DQOnWMPfVBJ7wCP4 qD1nrAoxddtslXIyeDum beIlmHleAVxmYJjsJ045 QDCzpUnkTwFeOWy2O9Ql Ypt8WGAwnDfgDN0u oWFvFCmwYp3ccCkdzQcj CZ3lGYCoivjsu443AgEt r0wjESWfhJBoYRtxRWH6 M74ps7Z8YYQpRNZh BNJ0pMH9fN6fhCcbowsa bGVmdDsgdmVydGljYWwt IHenG462EMEgaMbnPbPq wCn2Z3DkZhp8RFBy tApgQW2ltHFpLVhlKr5m hWmnlCmhOZ4uTQYggszh d409FmMuu2buMVBknKQv UHxjOBA7Y04or7E0 BMRqXZEgNWF4qMG6uN0j bGlnbjogbGVmdDsgdmVy bJmqGYnhINvmS630NDUc cDsnPlBhdGllbnQg MReuBPs0L7FkBqkfjVT+ NE62JLBfFL23yCVynHDo r0cvhYc0EkHiZSMmVJX6 kHdhTBtig4OoOHTn K76ckVNrr8H0ZZJxbHdm zTVmGxBeyDJ3mU9gDTcq kgxhu1sxexolNghab3hy cm99oR21P88lRHyo ZHRoPSIzMCUiIHZhbGln bj0ihN6bBo2+PGNvbCB3 nMA0xM2kPAOjFvT2WHsl X750MuBnwWQkWrrt t2cqt0ebbNo9KtU2RJYs akIvgWriDCQ7a2PbTx10 K24bRMdjOKGtIPNwTSOt AKGwxLbteb5wnY4v Ii8+RAXisIA2lFZ3jB1t AfHnDaI0XJdgQ161CaQv zCAfOltaM59bQ9DntFP+ LZUmObm5FDVnxByl DM7itKAyKGpvVz4rKUR2 YuIwNlKuIAypJ6OwWWLw pfptnsodxQE4WWCqOKJx uU27Cu3fhDghKVOx mTUOaB2seteat7scfhic JtDuLGLlCLd7ZLr8VSQp hLorCsClUSD2YuN9NFA5 cESiiM6orYfudebm dI7wW8RzLUNusoveFo04 eG7uGjPfCsW4SYlyZlp+ J9tRImBXNXqhV5aSAHXE CAtPWU0MOMnseUW+ IQGzFZX1aEzmZEcbMQSb qA3cLKXuP4k3JvEsMkK5 LJgqJ0TsLGRlnokhNb68 wK9lGvPkMeY6FQfd M0TlhtM3FTVwtXNoGMff SMQ8B36gj1Y0RGPwBLQa JNL7dRE5fL9qmViwwkvq bGVmdDsgdmVydGlj BOjxLCszC915RJQgtYex BoF4UgVmDqZaJYA9C3Lr Yhq7YFPlhGywLF4xsZCy CNrqAa8liIsrdBme XA6eDPVhumyfKBDvkX4q XZFxvSOtyIenAU4wQWJf gajmt939ObMvBUC6IBPn rGLxG0FovT7wGxAj RSXuCMCzT9FrgNUaPImb H786WSdeYjM5EKShqmMf E4PqBDNugLwkLbP9m3S0 Pl6eVZHPWKHdlfvy dGQ+KNZwGRR8bBggSGdd ZJZltW0sMZAoV1e3SsOl MuF3TJsmM2PlARIfwyob Cw99sU7aVnIuYhC8 ILyoD1PlveF2LPRtgIFm KSeeQRZ8O53vc3I5OZIq SYKjJEW6sRY6xH1bpAkn bjogbGVmdDsgdmVy gUfnWMauFXjaM200YNQg cDsnPkZFTUFMRTwvdGQ+ FKXuLYR8pZtbAAdjXWXx gK7bQIEfD2d0EqPl StK7UXtsO0HvRVObvqsi Vh94nP0eDmHwJwU6HOpx I3CsixE1MQHstUOjVWew WVP0B40la8R1FWPe GYXtKYY3zWC2tR9rjOcb bjogbGVmdDsgdmVydGlj CLlzTJrjM927KZRjuWsx KpCjFMYyXF6zrVtx dGQ+EF53ix97L6SqJayf Jft7QTUqGVE7pNP5iY6g BTHpXHley5N1kUS9C7Nc qhLijj6ck4ldCMKs RHsoP52dsSTuz4H5VTFb bCX9NBAiiQnzIhAcsJ30 Oyc+DZBzrRhfv3OxQqvr l1olu5uuiXq0FkOi EPJekjTjzSzoUIU5b9Gz Ol49F79bRSzbIZAgPXIa FJOwIHWazJktrg6ueJ4y Ii8+XCDnuPJ6vWP4 uE2oUcYbFlR5JGhkM278 KoAtaTKpImywu5mvn8hg eOw4DsJzNGItmiDizPyo JKW9w2GmOu36I6Lc wUmam0SeDfq1yz60mPCr y2T5yVJ5J9DwBNLundda lERurXayMU1aGZQnsdcd YZBxnB3nJDRgT1l7 XeBwJyP4XFoxM7JnpwP8 BKHpgWQeYYVzxZWNaS4h gsrwy6zstkbnKnLkCFGs PQe0XGl0TYJvuBse WrQdFGJ6FdL6GHT0jKIs wS5xuYvxiegkvD6lYmo+ YGz5q0pmkHMiHH0heUX0 PW11NF32eTYms9T2 lFV3J4WySEHuaxnegzxh jJH8TTTsBBNbuT84Al5n cTcfVh5rMNEeBKO7YLXp jBEdF8SrfE1uUaMr FIZfZVVmN9OguXDcDVre N025CIgwWlQ9OBJcrqQh N6IlMIRotTabFvY5g3A1 Rd5YSQ83JF94TE87 pFNzb3B9gVF3Z5UhJYOa nheyixffiQH8CQXfUEPa lL23Rp5ljPnnIx5qXPYp LRB1KFUzpOAyM8Du fS9uRpIvNEPwCQAhZ6Zd cBTyZYetP632KVlwAlO7 OTUvshShQ3RjLXJzyFwb QvX3j3A2Wi3SVc59 MS10NR43gVEii5W6uBG5 D9RfRWMfgdwzrvgdwFP2 WEMjLVZbgO49Cc6vcZsa Uw7sVPKlZTW7DFRs tPBnA2GnmV3kEfEjIBKw MZVmQ7XjpLWwIPmdE876 MZoxEoV4JPWgreGqD8Ul OSRezLnlBbT7s8T5 Pn5OMLyrxbq2M4DsVhdh dHI+TI76ORBgPF46iJJy gTRar7phxYq7QaEoSFVo DLX5eEqaFPdgc6Jx ZXI (more content not included)... [facility] Coding Summaryon 03-05-2023 Coding Summary HTMLBase 64 RskdcjsaQEh0hUu+PGhl YWQ+TX4FLVTyZ44qsXBe sM5eD2SNNXoSWqvfRQFB OBeHAzHimbDnKL3uiEMn ZXJu IC8+NT0oZTLdTkyggFXs x4L3jBT7T18zes7sTXfe pUR6MLIxAaZeisbck6ir zKp8TDfjJvczToMa JWQecH18VLG8tG83Rr75 gYEaqGDhl2uccXl2CqWk SKKgRLT2dCqlRBuaf0Uq AARsB58ivYJev6N5 IGNvbGxhcHNlOyBlbXB0 hR7uRJqqdyqcp6eymgmh Jrv3ki47aXYqq3L9qZO8 R5ImeoS8GNYrcLZz EdkxoZWOhS9xigeij9tz edezPfIcUYMiSUe5OJr3 VKXczUarIvOpEJ06KCZ0 STAkoqUpA5VeIXTj bQllJhF9z8V5Pw9EJ3GT YoqwS3SZWDWFVTvhcAJ+ US57hd20S0RxCnrrYdg2 JQPmNJW0bEU2wP3n XDTxYStsz9P1cKJ9H3Vd huOdzq4wz1paUQVdZPbb N19fpYWzn9U4ENEvoJH9 AVHreRfdRuTyuU92 Oyc+RTJnaFjju4RmZixk a7mty8ludJy0EviaEVPc ivDjsCgxZLL8q6YhAt2z TXBpfZL1zCR1sP8u PuVcDcW7MXriI060NgIh bGBgMxwvG80vH7LovWS+ MUXhIal9JAAspKluVK3c Q8WlIGXjrchlhCSc cHbtQG6hPBXnujszTUBn oW5wOSOgF3q4CvHkXxU6 AYceW9ZvVUJzklawRm82 rF1vYyUkBwB7QNxf V1TerkC0OAKcnTCjYBkm RRF4P74uf3V7MVLjLYRx STO6vHM8xH4beVazagfa bGVmdDsgdmVydGlj UFuyJQerR574KNMjnGtb PkNvZGluZyBEYXRlOiAg MTEvMjgvMjAyMzwvdGQ+ ZOVdAJP2kXacRTNl pTIkWClqVe6rvTlcnVyt GE6bJDYiimfkIESiyU2f NFFiuIWosHquBF2sQCZu fclgw794StVmICG7 JYTwuBBtV5BjuI3nNmQv VMErFHDqA4VgjZKiXDxl O982QDlsXrA9ZXVcdzAo I8BwGNNuvKkhNdV4 c7Z1Ji7Wu6RvtffwQ0Ir qRDwAmLxCdtvILj4T3Ri PjwvdHI+UH12MBZnEI69 OVw7PHE3jYtyWTnl KRFaX4SwoW2nHeSvZCZf ZGRkOyc+PHRhYmxlIHdp ZHRoPScxMDAlJyBzdHls QQ2cBv6kYCOlIXFr cVrsgFAyTsVts8ffTOVl VDulGD9cdYydI4GjsEY4 JCOlc2z8Hg89Y61iS0Az dXA+KFUdvUQ2aPW4 vY5dTlWbXtX1HMktK815 QlGkhAIkLdtuh3aae7tj sVp8IhK2MEOnwiZzqCjh BHO6c6LaLi29I08y IHdpZHRoPSIxNSUiIHZh vZjkkh8iiT7qFl7+PGNv tTG3zFR5lA4lTaXpKzT0 EOaxS027FvDtmFCf Bekac6kjl5aosPt4GqSe WRHrllJlnCakNEQ3d8Am Ds26B4IvkVgsg1NoHnc7 qh66vWAyt6Z4wHM5 E4LrSUDzocgofVPzhZlw VP1aGYRfjpxhRUOomQ5m HGKwA3v1RdDeYuU2RNlw S3MpdkN0NPZplAAw WRAnxFYNiP3xwjmnc1ox bdsmNxOnBLKnJCh5HQv0 AWHmuLzaEuVxAIR5WuB1 ELH8eXWzsN5iiBbg gqedfD5wInp+WYJ5kDUp nZWJRP6fItmcuOG+PHRk YVA3zTfgYWdoLLNkpQ6l EGPmU3y1SdDnErH8 AYpmF9PmsjR0PRQpaWJj GZHcaJMJaL8hgwewz8io zinrRgZjGXJtQVp5ZBu5 LWFsaWduOiBsZWZ0 FhI6CUZ2hCCbfY0xsAth rejphT4mJig+QmlydGgg TUU7TVv7G5ZnSfi5KUQa zPgpOV4ioDJxLGgp Ss2npNndtPihFG8nDOSp hlkpu075XfJng0qvEWOw wBGwUJiyPDM9Q42sg9H8 BFGcBBCxKDT9iRX0 cM8iiPvnofnjkMWtvVax tnSmjQxqLBmgQSxdP956 TIHhnDmwCpLzDRk9Q3Um Kxj5KCXjtHsxNW0u zEDtADvaKa6wkFlxtKob FX7rDYFrqlunn444ApIf q3luTGRdeOUiZThfMBI3 N74dg0A7NKAjVCQx IAN4qLF0jZ3ijWbvvnit bGVmdDsgdmVydGljYWwt HYjsY669MTSdkMsuWhEh hTy0U2RmHxd6KCKd zDlsTP5eeWInBLkdGq0e xXrloRprWH8wALAodjny h349QyFam1ewJWUtwEDm ZLpbKDZ6O63wb8O8 VZRsSPLsVHQ6hOH0mG5u bGlnbjogbGVmdDsgdmVy mLtnSEtrWDtdB948AIBq cDsnPlBhdGllbnQg YHalFYc5D1CjNfcwaFJ+ HP44GHCrCW57pFTalEIf r2mucNp5IwLdBXCyDXL4 iKbkPVthm5QyPIYl V57wnAObz9X2IDFdpFvy bQBaEzRcvPD6uF2qCWzu mizhd9xgistdDbxxs5an eg28zP21J73hOEsk ZHRoPSIzMCUiIHZhbGln an3cgK4oCc3+PGNvbCB3 vYX2yH3zEJPuTaW7MXjf U912LjUknQElChxe b0ucc5cefSf6YjK3EAIr fyUmgHcqHQO6w5CmUl25 Q59oVEclDOOxBQPeYOQt MRFjrZbubs4iqI7h Ii8+LIAnzTL5nWZ4nY6l JtHuNuO5SNjxT999DsSy jRSpHiwpZ94uG0WnrKT+ TOXbFis0WTFosYsd LP4gnTXoIVnxBp2rGGV0 HwKhLcTpBJtmJ7UmTNNx nczzhknqbYH6POLzIDWu uL99Uq6luCckOAAl wZEQxL4kdxjmi2oentrp EdAqIQLsHZp9BQm0FCKg jVyjVhGhJCT2MqW1TVD7 lCCviZ1qqVwdwgnq uH8oP4SxNSVqozitOf50 eW4aXfAsHiO2QXxyQci+ Z2cBBeMOLQsjI8lYTMLN DPnFCZ5KGCrxqLU+ XSZgVQM7pIvxGLstFDEo sU8nCWTrX5s9ZhAlMiU9 RPlzM0JpEMGizcfbTo00 nF3oOgSoRlM9GIev R1HkucM4UOQtpKMoAZpg KKE9P34hr0P2BDHzIPMa BOK3dZA9yF7ceXxnwmwx bGVmdDsgdmVydGlj IFqlHCpvV398ETFefPwq NkO1XiRxOvEiHSY6K9Xp Bgo0FBDpmSalZQ2uiVNu KTfuPx2jiIxaxKqv KY1oFWQlqbpnQSLvpK7g EPWfhUZspIguIB7rAZQm cvbyc791BcHcYSA2JUBi mZRgF4PppP1bHsPa BRHiUFLzB5GfxGTsKTsk K505GUilTdG2GXCqxnRq E9YaBCFphVnxNoD1y3H5 Xx5pYIELNMDseyzc dGQ+ILEcFAT5hCzoEIli UUQvbB7sZCLyC9d0YdNk AlB2TEboU0BiZUGxaolp Mf52fV7qZzSbPyE7 SYjkF4HzopC4ZEIjhLGo YYdkVWK7J76ko0D0PFVy WFUmVVL8zGA2hM9tlSge bjogbGVmdDsgdmVy yVidVKjvQExqK277GQKs cDsnPkZFTUFMRTwvdGQ+ AKCfABR5yCoaMCtaKINr zS8mOYJpD9s9VxVy OdZ7JMnvQ6OkJADyecte Ix21jN9hAkRlXlI6OYvw F4HmfzF4YLArmVIyKQrz NUQ8L75pm7W2EBHk VYHiOIF7mQY3eD8pwJda bjogbGVmdDsgdmVydGlj ZDcdVOrwF587LHNvhOfe Fn1RPL37JW10S0Qh PjwvdGFibGU+PHRhYmxl IHdpZHRoPScxMDAlJyBz vXxqQX1xVz4nDWNbNFWg tGawrNVnChRtf4wx FHTwZFhfVM3kvMneT2Ez xZG1PGJth6o6Hw02S81b H1AyrGS+FVZibIR0iYW7 rO5vKlChHbS6XGuz T813HqSvfCFmDfshq3gz q5cmcPv3LlBdXRGkucLb pWeeZQT4w2GkBc36T35y IHdpZHRoPSIyMCUi IGHxzInbpg7bfU4sQd0+ SMPyoKD2zEC0cI0cZgQs EgW0PEwwE781PrWxaPCt XptxS46jV4BicAA+ GQUsYbw6VONzeDexHF8b fYWqIHnmHy2xXDH8WyCh YhYrOPbvK2LlONKoorxu ohttjET2LDLlGMBn mP24Zr5qgNncGv5pRWLm DIQ9EKHqiHCxW4TmgB7u GdWqNCInXXWkM1PzrXFa ZNgtT435NEftSwL8 MTQojfQfI8KqXYWxeSld DjE8g4M1Me2VwUnkwLNj SV3cUoWuYOk0L1XkUdo7 OXYzsBdmVW7jzZOv IPhiKq3kdXsuaUjjFL1b FDBxwthov815JkAsb1mx UKRxwVFrVRphKML3J64z m1D0NLShHNSbQXX7 sEY3zB8crLnobwfpmMUk dDsgdmVydGljYWwtYWxp T323AXYucTjjWwUQWps8 G9NjDar3LRVjgJdb PA8dxVHtDMmfIn2wxHqn pMsmIV8pXEUayzygw702 QaOvz0mfHPIxqPOqNEdw PIP5Z07zp2P3ZXSp IUPnTXE6gEZ1pI3poNhn bjogbGVmdDsgdmVydGlj YMwnBOooP626ULDqeRfb Df7GQho5P9ItIfv4 XBZeiDfqWZ5nzBAcASuf Aw1ezDsuxCufKF8pODTv juohx849EfCdz4rpIDLf aLKtAQppUDN5L68z y5J4IATgTBGnWEW1fXI5 jR6idEigrcnffNPooVxh jlZtoAjzGOlvFQciH641 IHRvcDsnPlBheWVy OjwvdGQ+ML46ip49M8Kv VngaBvn1PWZzHPI5pSK5 tE8oYZHaZHcvd4D7eEE6 D2ZkpaBdae3uh7nj YXB (more content not included)... [facility] C Throaton 03-03-2023 C Throat Ordered by Radha. Normal throat jonny isolated No pathogens isolated [facility] Comment on above: Performed By: #### 6 [id number] ####[facility] (DEFAULT)[address] [place] [address] .QC SARS-CoV-2 (COVID-19)/Fl u/RSV (GeneXpert)on 03-01-2023 Internal Control Pass [facility] Comment on above: Order Comment: Order ed by Radha. [[email or web address]] Performed By: #### 6 [id number], [id number] #### [facility] (DEFAULT) [address] [place] [address] COVID/Flu/RSV (GeneXpert)on 03-01-2023 Flu A (GXpert COVFLURSV) Negative Normal Negative [facility] Comment on above: Performed By: #### 6 [id number], [id number] #### [facility] (DEFAULT) [address] [place] [address] Flu B (GXpert COVFLURSV) Negative Normal Negative [facility] Comment on above: Performed By: #### 6 [id number], [id number] #### [facility] (DEFAULT) [address] [place] [address] RSV (GXpert COVFLURSV) Negative Normal Negative [facility] Comment on above: Performed By: #### 6 [id number], [id number], [id number], [id number] #### [facility] (DEFAULT) [address] [place] [address] SARS-CoV-2 (COVID-19) RNA MILY+probe Ql (Unsp spec) Negative Normal Negative [facility] Comment on above: Result Comment: Perf ormed by PCR methodology. Performed By: #### 6 [id number], [id number] #### [facility] (DEFAULT) [address] [place] [address] ED Clinical Summaryon 2022 ED Clinical Summary [facility] - Emergency Department [address] [place] [address] ED Clinical Summary PERSON INFORMATION Name: LIA DESAI Age: 22 Years Sex: FEMALE : 2000 MRN: Acct#: Visit Reason: Cough; Throat pain; COUGH, SORE THROAT Arrival: 03/01/2023 14:12:36 Discharge: 03/01/2023 16:04:00 LOS: 000 01:52 Check In: 03/01/2023 14:12:36 Checkout:03/01/2023 16:04:00 Address: [address] [place] [address] PCP: Provider, Unlisted PROVIDER INFORMATION Provider Role [...] verbalizes understanding of instructions given Comment: Normal [facility] ED Note - Physicianon 2022 [...] Resolved Disease caused by 2019 novel coronavirus ([id number]): Onset on 11/23/2020 at 20 years. Resolved. Comments: 11/23/2020 CDT 16:07 CDT - SYSTEM Problem added by Rule (IC_COVID19_AUTO_PRO BLEM) following 2019 Novel Coronavirus (CoVID-19), MILY L from Nasopharyngeal Swab collected on 22-NOV-2020 16:44:00 EDT tested positive for COVID-19. no history (960022478): Resolved. Contact dermatitis (18668920): Resolved. Pharyngitis (1683124115): Resolved. Cough (73153111): Resolved.. Surgical history: Tonsillectomy and adenoidectomy (257372129).. Family history: No family history items have [...] any worsenin (more content not included)... Normal [facility] ED Patient Summaryon 023 ED Patient Summary [facility] - Emergency Department [address] [id number] PATIENT DISCHARGE INSTRUCTIONS Patient Information Name: LIA DESAI Age: 22 Years Date of : 2000 Reason For Visit: Cough; Throat pain; COUGH, SORE THROAT Arrival Time: 03/01/2023 14:12:36 Primary Care Physician: Provider, Unlisted Attending Physician: Tom Smith DO Comment: Visit Diagnosis: Diagnoses This Visit Asthmatic bronchitis (J45.909) Cough ([id number]) Throat pain (135527187) The Pharmacy at [facility] is open Saturday through Saturday from [...] alcohol and/or drug addiction problems; contact the [facility] 29/10 Crisis Hotline -Text 4HOPE to 262310. If you received any narcotics, sedation, or [...] and treatment you received today in the [facility] Emergency Department were for an urgent problem and are not intended as complete care. It is important for you to follow up with a doctor, nurse practitioner, or physician?s assistant elementary teacher for ongoing care. If your symptoms [...] so we can reach you if necessary. [facility] Emergency Department has provided you with a complete list of medications post discharge. Please inform your pin drafting machine operator/provider of your visit and for further instruction on these medications. Any specific questions regarding your chronic medications and dosages should be discussed with your primary care physician(s) and/or pharmacist. New Medications [id number], [address] [place], [place] [id number], [phone] albuterol (Albuterol (Eqv-ProAir HFA) 90 mcg/inh inhalation [...] Acute bronch (more content not included)... Normal [facility] Strep Aon 03-01-2023 Strep procedure control Pass Normal [facility] Comment on above: Performed By: #### 6 [id number], [id number], [id number], [id number] #### [facility] (DEFAULT) [address] [place] [address] Streptococcus A Negative Normal Negative [facility] Comment on above: Performed By: #### 6 [id number], [id number] #### [facility] (DEFAULT) [address] [place] [address] C Throaton 02-28-2023 C Throat Ordered by Discern. Normal throat jonny isolated No pathogens isolated Normal [facility] Comment on above: Performed By: #### 6 [id number] ####[facility] (DEFAULT)[address] [place] [address] ED Clinical Summaryon 2022 ED Clinical Summary [facility] ? 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 Urgent Care [address] [place] [address] PATIENT DISCHARGE INSTRUCTIONS Patient Information Name: LIA [...] to help relieve symptoms, such as: ? Qbpb-xvo-ejndtvz cold medicines. ? Cough suppressants. Coughing is [...] other clear broths. General instructions ? Take mzak-okp-qzggesa and prescription medicines only as told by [...] included)... [facility] POCT Rapid CoV-2 (COVID-19) Antigen/ Flu A&Bon 02-26-2023 Influenza A POCT Negative Normal [facility] Comment on above: Performed By: #### 9 [id number] ####[facility] (DEFAULT)[address] [place] [address] Influenza B POCT Negative Normal Negative [facility] Comment on above: Performed By: #### 1 [id number] ####[facility] (DEFAULT)[address] [place] [address] SARS-CoV-2 (COVID-19) RNA MILY+probe Ql (Unsp spec) Not detected [facility] Comment on above: Performed By: #### 5 [id number] ####[facility] (DEFAULT)[address] [place] [address] Strep Aon 02-26-2023 Strep procedure control Pass [facility] Comment on above: Performed By: #### 6 [id number] ####[facility] (DEFAULT)[address] [place] [address] Streptococcus A Negative Normal Negative [facility] Comment on above: Performed By: #### 6 [id number] ####[facility] (DEFAULT)[address] [place] [address] Urgent Care Note- Provideron 02-26-2023 Urgent Care [...] Resolved Disease caused by 2019 novel coronavirus ([id number]): Onset on 11/23/2020 at 20 years. Resolved. Comments: 11/23/2020 CDT 16:07 CDT - SYSTEM Problem added by Rule (IC_COVID19_AUTO_PRO BLEM) following 2019 Novel Coronavirus (CoVID-19), MILY L from Nasopharyngeal Swab collected on 22-NOV-2020 16:44:00 EDT tested positive for COVID-19. no history (851212715): Resolved. Contact dermatitis (24041510): Resolved. Pharyngitis (4542160859): Resolved. Cough (68081446): Resolved.. Surgical history: Tonsillectomy and adenoidectomy (292287915).. Family history: No family history items have [...] collect, Neha (more content not included)... Normal [facility] [place] 023 Urgent Care Record [facility] ? Urgent Care [address] [place] [address] PATIENT DISCHARGE INSTRUCTIONS Patient Information Name: LIA DESAI Age: 22 Years Date of : 2000 Reason For Visit: UC - Sore Throat; SORE THROAT, CONGESTION, BODY ACHES Arrival Time: 02/26/2023 09:55:01 Primary Care Physician: Attending Physician: Errol Ortega Comment: Visit Diagnosis: Diagnoses This Visit Myalgia (M79.10) Other viral agents as the cause of diseases classified elsewhere (B97.89) UC - Sore Throat ([id number]) Viral sore throat (J02.8) Viral upper respiratory [...] and treatment you received today in the [facility]gent Care were for an urgent problem and are not intended as complete care. It is important for you to follow up with a doctor, nurse practitioner, or physician?s assistant elementary teacher for ongoing care. If your symptoms [...] so we can reach you if necessary. [facility] has provided you with a complete list of medications post discharge. Please inform your pin drafting machine operator/provider of your visit and for further instruction on these medications. Any specific questions regarding your chronic medications and dosages should be discussed with your primary care physician(s) and/or pharmacist. New Medications [facility], [address] [place], [place] [id number], [phone] dextromethorphan/gua ifenesin/pseudoephed rine (Capmist DM 15 mg-400 [...] their own, without (more content not included)... Normal [facility] Coding Summaryon 02-22-2023 Coding Summary HTMLBase 64 YjccxsqrEMm6xXr+PGhl YWQ+LU2ULVImH71adVXl vF3zZ4GSAAaLYxlrZCLK CFzBUbHbvkIdLJ5toYQa ZXJu IC8+JE4aDELbQjpwrZOj y5V2hSV6L72dsu7tZLcx gCN3SSUsBgZkbnvky8jl jGh7TFyjScjyOcWa KUCzlS85LOB9tG00Jl15 wPSuwQSag6atkCh1VjWj ELNlCAL1oWptIIdeu0Xk GGIwO55zlOZkf8N0 IGNvbGxhcHNlOyBlbXB0 hY0bBToykualt9cvqhvn Pqn7ng53eYYgd2W0zLA1 Q8JkxsR2XGBsmHUa FgzygVNTsZ4mrxith9db ggkdNsCwXPIgRBn5WEz3 FSJceByuNxJhPB03SUI4 HTToqtKiU1KyIBNc xHdtTlX9x2A5Hy3YD6VT YyhdF1HAXYTIJFudaAX+ AB64os51J3HwFbmhIlt8 YCJcNBH3dKW2nX2e HKCiDQwgl2M4hLF9T4Zo vmUpuk1fa0yuFWYxZKpl S28xcQAek9I9ETKiaRW6 WAXqwExqTnOpeY48 Oyc+UUIjiUski7XbOcve n8gms1sqkLe7BznhBALy nbOrlEpaXWZ1f3AsNl4y ASGirAN8lKD8jZ4u PtDkVaC5QAmxZ312EkFp ySLwJlanD77pR8HchVR+ NRKsYnc0RYYwlKxvPD6t X5XpPLLnmkrclEYi rQatET6vLYOhervuVRQy lT0mSEHqC0m7MdHdJlN8 KCrgE4KjTIMgatxbFo71 hT7sPqQfPfE4HDhk X0RikkC4CEJclIZkEYdm XMS4R67ix0N4CNPhIRDp PXF9rGA1yO2kpKukcysi bGVmdDsgdmVydGlj NPrpEAqmL172HXVsfQvw PkNvZGluZyBEYXRlOiAg MTEvMTcvMjAyMzwvdGQ+ EBQxJJT5eRacFMJa iYVsQSofSd4cpFwsbXko WK8dZVJkeurcBYSzmR3p CTPelCOdaArgQW4dZQQn xxlih498OaVsLJK2 TJDeoZBaV1XwkT2vOkFt XUZoIDDyL0MwgUPmSCmc K627HPnlLzK4JOLjjaOm I8MvWEGiaPndDoM7 v9G3Lq4Tt0FaljudG9Jr hMCeZiGoKjbqGRl2H0Zr PjwvdHI+EI73FPKyGG22 OUy9EZE1oZmhLBnp BCAdT5EuwL4oAxFiZYIw ZGRkOyc+PHRhYmxlIHdp ZHRoPScxMDAlJyBzdHls IM0mCv7zLFQsHWYr aSeemVLkNhWlx5bnCFXm THkmSW5bwBztW7QxoBQ1 ONLzd9h1Eg40C80iF0Kd dXA+YBKigQP2nAC5 vX8gYqYlWeY5GTacX077 MaTqoDNsYluje8tzf5sk bNj3OwZ3MIUoguQihCgr WAB2w9PuAn91C83m IHdpZHRoPSIxNSUiIHZh hDhcse4tkJ4kKu8+PGNv zKS6pZC2bN8eBqBiKnB9 DGcdT103ZyIwuBYp Iwgjt1krz6xdfSb4NtRg GRXoorOftWnwERM4r8Iq Nc49H9YfuWhli7UcHxx8 gi95lVCof0P0uHM3 M6NwQGQibxnqpBSlbYlu AS1oDBVwyhukPCWspR7h BGZbL7d2OhMoNfK4FZwk B5ArgtY1EMGhcECy APHulSLAxO0tlamku5hd uscfIdEdPCCfDWt2KTh1 XAYuwLmzTrMpCAU4ZbW3 HOQ3jLHhhJ9pzObk pihmyM6oDpr+JPY9sEQp hANTHC3zJnvifIP+PHRk FPZ0pEuuMIvnANHjvP0a BXMwB1b1CjKcPiT8 ENtyA3CdolS7IJCzyYMs PRQniCKWiL5pxsztj1av cceaFnSlBXMlYOb9NIk9 LWFsaWduOiBsZWZ0 UxB3LBN6vECyfF1huUyi wttwhP8bQdd+QmlydGgg IGG8KZg2L2LlJpq5YKEp zBfaAJ6ghIGxEOmc Ni1iuWezlCniAZ0sRWJs czsmc888PoDcz1gyUCUx aYEcQRcgVHM1I95cv6W2 OPMvTMLpWIU2uQY0 fO8jdIsqwlfswRGdtXab fsVewWzbUAnnOBciM804 BXSutKizDdViUHr9R7Fd Djs6EXSblRxhIH7g kPScKGuqZl4xqRrrpXmt MU3jGZJhsaklr166VjXl k0ciZTPnnLYvRKxeDDD3 T82wu2G8KUXmKZGf CCQ2yVR3vX4ivVbmoeto bGVmdDsgdmVydGljYWwt SFdwA453UUHaaBqxKnHl hUo5G3GjUrq5AAWp uUzlOV1nmGTzWRhdCv5o zLtscRxiVA8gPZVxlzhq r554SlMrq6euNVTtpSRt FSfhBNV1P05mn0G8 EILyDRDaMHV1zAI8lZ2h bGlnbjogbGVmdDsgdmVy vLwcNFhqFJiwD675ERTt cDsnPlBhdGllbnQg OCehXQx4N3RmPmgmjYN+ NS51PRVjMT25tBPtfANw i9rvvNt5CeGyDEWeNBO5 aYkeYZxqf3FvQCRy V09zgZUoh8B1OZZxlHii sWUbFzJcaLM1cD9dJYzm xmybp0rveofyXircv8vp xf70gW32V52qJQnc ZHRoPSIzMCUiIHZhbGln lk8muY0lVr2+PGNvbCB3 lQG9eA2kMGApRvI0YTbz B292JuOzmJAxBlse t8sfj8dszUy7EdR9QUBg igMioCubVKE0k6IzJi56 T49kRBkdMMQrFZCiYIHp ROPvxDgxai6amC4l Ii8+NSNdtVU4xIX1bE0q XvLlDcH3SEvgH293WzNb xCPfNajvV33fU0NpoHV+ FFEzGur8WAAwqEfk IQ7dvWOaPMpcSt9cXNY6 NqHePjFmACaqQ9ZxYQBu eiwlqnuawKU5ECMdAONj yB90Al6nrOtqNATr wUOXqH6uijwqw1vdxkfe IpKgBESbHHw4TDn4QZTr kMfyZhWwAAT1XjZ1MCD2 qMKokU0yhTuoocdg tL2yC1OrUOTsbhscPi69 sI9cYiWnMeV8IOzwZiq+ U1sDRuZWKToqG5yMLZGD KBaIXT2RKJwixCZ+ MKGmKHD6nCrzLZkyEBEy lW1bCOTjW6n3VcUlFrP4 DKzuQ3BrEAOcxmrjPl34 jU0hVeRqWoQ9YWeq F7ZrszJ0BGFxqTUjKLyi KNL8P58ho5N3KUAnYUMn RSV7gUZ4cU0upKeslbzt bGVmdDsgdmVydGlj YUljCLpdY804LMQssGjc QsO9MmEiUtNsQAF5P8Me Rld2ABIduYfuMK8vtETw ZYavRk7vbHaykIxq EN2nGJDgmrwdZMTbbO2o ELCsdBKasZxxAS1dXUWa vjoqv047TwXaMJE7DGTl hLPbO1LbnV4kTkTh REFnESQjS5VrnWUjHVlk G164CZjdJmJ7QSWzpaLq R4AyZRMwoWrcIyV9f4Z9 He8cVHQYBWYounvf dGQ+EWUrBOC9sTyoGOwz MXZwlA7eJUVvP9k2PwKh ZhL2LFpfR8XzGPIyrhvi Xj72jO3yMzChXiA0 CVrhQ4JeafC3HYRmrSEq HVpfIOV0U09zv4C7WYXw HRXcPYB1oTY0hZ9ztTbq bjogbGVmdDsgdmVy bXkkUFoqBUknU904CITs cDsnPkZFTUFMRTwvdGQ+ QKIcNQS3aImrHMchAOOb wX1rKTLrS0k5PkHx YxT2WIzmA2YmUBNmitrt Ma53iZ5dQdZrXhK6BSir K8IxnxL0SJCihJHfXJra XWX8Y38cf2M9AXNh BKSuMYD8dOG8cJ4doWvi bjogbGVmdDsgdmVydGlj HDwvVOlgX449THOusMjp Go3GPP98JK03X8Gd PjwvdGFibGU+PHRhYmxl IHdpZHRoPScxMDAlJyBz pVeoXO0gNs7vCQBkDJUw eNilgQCvKkZic3dx BRHeUVycBY7roCgzI1Qy xJP6WCWib8g6Ui01B20w R2SqyHK+BRNpzFF1fZT7 nO5cTwBfWoL9WQer R133NhGpvGOjHmuek1hh j1xklWs9HwDqIFMishGp qNorNMU3f8CyZa28K41m IHdpZHRoPSIyMCUi JPFsgQdybb9evG0qKd0+ CZJyiOG8fQA8bR1pDqOv QqQ1HWwmT446IdMqkCTo EonhL50gH5PhuFW+ NNUiVfd4CUZvzKpaQG0s nULfLNemKh3jVPW6RgQy RgFtYKsbA9BrGNTniwlu tbjegOZ0PWPdWSBl wX13Pg3miSjdYu1xLRHc WWW7GQRonUOhF9FafY9n VkZsUKKxFNFcF2UpwEAk BSxsG328QPneEiE6 VZPzhhMmT9WfNGIxwVsz JnV4i0N2Pk7ZfJanaOAd RP7wVdFlTKa6Q4QwGyb7 BESqbBihZQ7wuHUw PSwaXn9cdPxwqNhvGC7r OSLykqlll681UnKmn0cx XFJxjXRnZUrhOVW7I81l p8T6EYYeRKRkHUQ3 cSI3sV8toGslxbvkdCEx dDsgdmVydGljYWwtYWxp T893BHCtoAxzQbWMHfu9 L2AqPgq2JAKgrKsn CI2xcBStIMjdTd1uhBbb jIyaYC5vKKFkanwgq699 BjBuq8zcBSIdhXHxTZyb SZG8M06tf3U6NNKj KHApDKC3fCI7yK8gsLaf bjogbGVmdDsgdmVydGlj KDguSBktK042IUIbkRts It5EQsx2O9BbMro3 IZWgrPqlAG6xnRKcCCqi Xn4vwPrbbJiuVT8eCZHh gryxs536IvEjs9obISYr qZRvICcmNLP7C11e a6N6MXJsJCVrBAH5oQV0 kH9vwFpzfgevtHOmwYlt qmImtJcfMIdgKDgaW606 IHRvcDsnPlBheWVy OjwvdGQ+YZ98dp25I7Yc AuvkEhx3MUZrQHR5rSL3 nE8cGOReZHrwd8D8hPN6 R4JhvsUofy1bo3zp YXB (more content not included)... Normal [facility] ED Clinical Summaryon 2022 ED Clinical Summary [facility] ? Urgent Care [address] [place] [id number] Clinical Summary PERSON INFORMATION Name: LIA DESAI Age: 22 Years Sex: FEMALE : 2000 MRN: Acct#: Visit Reason: UC - Wrist/Hand/Finger Pain or Swelling; LT HAND INJURY Arrival: 02/14/2023 17:07:31 Discharge: 02/14/2023 18:05:00 LOS: 000 00:58 Check In: 02/14/2023 17:07:31 Checkout: 02/14/2023 18:05:00 Address: [address] [place] [address] PCP: PROVIDER INFORMATION Provider Role Assigned Unassigned [...] Therapy Follow-Up: With: Address: When: Regla Hernandez [phone] EXT: [phone] Call for family Physician Within 3 to 5 days Comments: Call for help finding primary care provider. Follow-up for reevaluation. Continue with rest ice and elevation using ice 10 minutes out of every hour as needed. Return for any worsening issues or any other problems. With: Address: When: [facility] Comments: [phone] DIAGNOSIS: Contusion of left hand; Left hand pain Patient Understands: Yes - Patient/family/careg iver verbalizes understanding of instructions given Comment: [facility] ED Patient Summaryon 023 ED Patient Summary [facility] ? Urgent Care [address] [place] [address] PATIENT DISCHARGE INSTRUCTIONS Patient Information Name: LIA DESAI Age: 22 Years Date of : 2000 [facility]: [id number] Reason For Visit: UC - Wrist/Hand/Finger Pain or Swelling; LT HAND INJURY Arrival Time: 02/14/2023 17:07:31 Primary Care Physician: Attending Physician: DORA JASSO Comment: Patient Education With: Address: When: Regla Hernandez [phone] EXT: [phone] Call for family Physician Within 3 to 5 days Comments: Call for help finding primary care provider. Follow-up for reevaluation. Continue with rest ice and elevation using ice 10 minutes out of every hour as needed. Return for any worsening issues or any other problems. With: Address: When: [facility] Comments: [phone] Hand Contusion A hand contusion is a [...] elastic wrap to support your hand. ? Scct-vzv-fqwxjsc medicines to control pain. Follow these instructions [...] or lying down. General instructions ? Take gvix-lqi-lckrvnh and prescription medicines only as told by [...] provider. Document Revised: 07/13/2021 Document Reviewed: 07/13/2021 [employer] Patient Education ? 2022 [employer] How to Use Cold Therapy Cold [...] the area (more content not included)... Normal [facility] Urgent Care Note- Provideron 02-14-2023 [...] All Problems (Selected) Anxiety / SNOMED CT 59073940 / Confirmed Acute depression / SNOMED CT 9780744972 / Confirmed Chronic post-traumatic stress disorder (PTSD) / SNOMED CT 057426421 / Confirmed Pharyngitis / SNOMED CT 0441474942 / Confirmed Cough / SNOMED CT 07407136 / Confirmed Objective CONST: -Well-developed well-nourished. -Acute distress: No -Vitals: reviewed. SKIN: -Gross abnormalities: No NECK: -Supple (ered-sp-rtgct): non-tender. CARD: -Rate and rhythm: Regular RESP: [...] and Plan: Diagnosis: Contusion of left hand (LCG11-YO S60.222A), Left hand pain (NHI64-MR M79.642). Orders Orders Patient Care: Brace/Splint ED [...] on: 02/14/2023 18:01 EST] DORA JASSO Normal [facility] Urgent Care Recordon 023 Urgent Care Record [facility] ? Urgent Care [address] [place] [address] PATIENT DISCHARGE INSTRUCTIONS Patient Information Name: LIA DESAI Age: 22 Years Date of : 2000 Reason For Visit: UC - Wrist/Hand/Finger Pain or Swelling; LT HAND INJURY Arrival Time: 02/14/2023 17:07:31 Primary Care Physician: Attending Physician: DORA JASSO Comment: Visit Diagnosis: Diagnoses This Visit Contusion of left hand (S60.222A) Left hand pain (M79.642) UC - Wrist/Hand/Finger Pain or Swelling ([id number]) If you received any narcotics, sedation, or [...] legal documents With: Address: When: Regla Hernandez [phone] EXT: [phone] Call for family Physician Within 3 to 5 days Comments: Call for help finding primary care provider. Follow-up for reevaluation. Continue with rest ice and elevation using ice 10 minutes out of every hour as needed. Return for any worsening issues or any other problems. With: Address: When: [facility] Comments: [phone] Medication Information: The exam and treatment you received today in the [facility] were for an urgent problem and are not intended as complete care. It is important for you to follow up with a doctor, nurse practitioner, or physician?s assistant elementary teacher for ongoing care. If your symptoms [...] so we can reach you if necessary. [facility] has provided you with a complete list of medications post discharge. Please inform your pin drafting machine operator/provider of your visit and for further [...] This is (more content not included)... Normal [facility] XR Hand Complete Lefton 11-0 XR Hand Complete Left CLINICAL HISTORY: Left hand pain. Punched wall. TECHNIQUE: 3 views left hand. COMPARISON: 12/15/2019 RESULT: No evidence for acute fracture. No dislocation. Joint spaces appear maintained. Soft tissues unremarkable. IMPRESSION: No acute findings. Final Signed (Electronic Signature): Gavin Mahoney MD 02/14/23 5:54 pm Technologist: KELVIN PATEL [facility] Coding Summaryon 11-27-2022 Coding Summary HTMLBase 64 SylqrnpkSKq8qVn+PGhl YWQ+PN6NQIWrP07hsUVi zH2kW6HOOOzEJokbKRJD MFpFHqKdkzLoSO9twEMe ZXJu IC8+KW6wOJKvOfbavEDu e2X6lCE1Z83uii4uHYev aHI9ZMUfEbJakajpb4do aJp2PXyfQhvoPpOc DQYpmZ41JDG9sH43Nl25 lIMkzDWvn7zvnLg5EcZw INHhURJ6uZbpFBltt0Av RHIfA95lcZBvc3V0 IGNvbGxhcHNlOyBlbXB0 hM2rMEpgeafov6wnannp Sgx4ta13zCIem9H1eRZ0 A1BppbB5IFYdlZSy ZvrhjYKDtI5pbzhsq5kx gdfiWcTeGZLtUBf0COs6 TCCikSxwRzBnSS33BCY1 QZQlksRpP9YlWIKc pLyfQsT9e1S6Gb6CK9MF SqhfI0DBZLSLRPpxvOA+ SL11qx66A3UsHrjyCmo5 CRWdKWN3xPV7cW5r HSDwWUexk3U6wQQ1W1Xf vnJvct0vc4lsHNPuASix N90tlPHsx3M9HCXsrNU3 LOJboEvmGbXyxF41 Oyc+XYUbgBbml0PgQaqc z5agh1bnzMv1KgsvBMCv whJvxLxeKUZ7g7GrSg7x KLMkxZK5rMH8xK2i GiZdAhT1UZhgW480OlYu gETtRsjqK03qG6XssNB+ OVAiYab5WJFgcHtoZD2m V2HiAPDwrzewgKYu yBuiVS4jTMUcbsfpAMBb oC0hNEQvM2o6SzXePoN0 YKelM9VqAZVbumhyXn15 rD2uXcCjTuD4DCtl V2KdhrA7XUYvmUUmQJhk GST9Q68so1Y7ADMwXOYs EVG6vXK4dD0ipOtdquoj bGVmdDsgdmVydGlj QFzqWAciK548DNTcuVwx PkNvZGluZyBEYXRlOiAg MDgvMjEvMjAyMzwvdGQ+ NAUtCLK6cExwILMx fOIiVJuaCr5gaXdbfGxz VD3xJRPgdlfeDLJnjY7z EEQugVFruKrlCD8fJPOx jtqsv087WbZyICO3 DKGxsNYuQ3YtmS9hQyOa XAReNFXrX1BvkQYnELrj O763GHpoOsT2NSDutrVz X0EfVZXvuNahFyO5 v3H4Ai0Os2UvnsceR3Yi kCDnIiLcXrphFSs5F7Lj PjwvdHI+VU92KZOyTF15 XHq6IHE6pMfvGCee ADBmF9SyyE0mHwMyWUEc ZGRkOyc+PHRhYmxlIHdp ZHRoPScxMDAlJyBzdHls FQ5iQm7fQGIsQPJz bLdwgBQrBlLpk3vfCZEu TEvyCC5rbHtwE2KrfNS6 EAKja9u2Ln54U72zS8Hr dXA+JNSifFM8wTM1 fB5bCvMsFeP6TOrrA128 JwUptEHpPhycf8nve6lx nMz5YiZ7HMAbipStsPyt HTL0v5McMg61L96g IHdpZHRoPSIxNSUiIHZh oSfzyk2lqG4sWe4+PGNv lOV7xZB4tJ2zDmWkWiB9 GGghC699QwZgcCZw Opyil7aja1psaYc9RvHs VTDlogHrdXbcFOA3k9Gz Ve06F4WpgNpsy7VmEom0 qd40bNYuk0J8cXA5 S9BzNGCdjpnxkVHpqVzc AW7hQLCytjudRQExtN6f FJChE2l6BxEiItL9ETsv Q1IxrsX2XKSzwVXk HQFfrUJQxE1wkbwtf6ik strtIpIkNDJwJYy5XNo9 JWRbfDmzIjNfPTC1OdQ3 CBP0wLJgiZ2wbIhf bludjA2wJln+DEK8bTAg eBADXZ5uAlyqiTW+PHRk STG8cFdsLUwuDALeuM2o EWSsX6l5AfYkBdA0 JOmmB9MevqE5YTJgjWIv HGVjkNQXeA7apgply2ya cppgXsFeWNZgHCj7TSz7 LWFsaWduOiBsZWZ0 OxP8TKP7bVKcwJ0pmMrr wtphzH2qEdo+QmlydGgg TYN4EOe1B3GwLvp6OOLp cApgUG6ysDIvUUin Vf6gwVzncWjrEI3aDKGr utqfa325RnEsr7zrOSUq iIPhPLjiTND7M80la3N6 AVLaBHDsSNE9oGT2 bL5vyHsyhkozzAIsdEsk ucWviFilQMmqGVtgM055 JKAywYeuEkSkYEr2O5Wt Cmm6WFMrgQmnZU7d rODtUAdaTl9ikZainXbr WD7xDTOxsedzm650QlMf c3keDBAnqSWjYBwbFFH7 L90yp0T1YXCdPIXq SJM9oSG8pB8orIzuejqc bGVmdDsgdmVydGljYWwt RGriT987VTFhgGpiZzNw rUp8C3EqCeq9UTQd cPznOE3qdWFvTCeuVy6q uKerdAnjHR1gAPOvsvln p477TlOub9kwEKCngWNp PVqkGYY4A49fp6D5 CSKdAFIuQWR8gCZ3xO2n bGlnbjogbGVmdDsgdmVy lTjyGRdeKOgoB120EFYz cDsnPlBhdGllbnQg MUcjUNg7R6LpAlngdIU+ JV46BMBtLT90uDTrbJFy x7pnrSk3YsDxRKTqZRX0 cSgwQJzek3AaMCRu C03hvJOxp7Z9CIJxkIne gRPwHlYecRI7kG0kVVyv nswyi0wutjddHacjj6hu vk99bD95E68uPNod ZHRoPSIzMCUiIHZhbGln ow8knN1jSh5+PGNvbCB3 gCA2wO9rNUUnAtA7TYxk X269WfYbyLJrQzcl o6wci0rjaVg5LfZ5MWCm jbPsgGxlFQD8c6HuYv77 R07pIHzdKTZbTEQdALMt KNDoiCwbja0nuV8p Ii8+XDUkyYF7tRM5tE6n LsXlVqD0FNmfM597RbSf aKTuHjhdO20sC2JosNY+ THBrQdn0BCGjyIlq KG3iqBKfEKypLs8yRVX7 XnFaWkTyVUcsO8DkZVTv itzrwgjjrFD3GGDqREMy tM44Vt7uaZxuLZHq rHWZwW9chzmkd4fxfwvh RwSqNZEqYWv1PTi8KHTw sHryPiOiXGD0BgQ8RBO2 uCZclZ5vkBjmytor sH4yP4WcAZKqzkbdSz24 jH1mUgSaGlF8KWqtIez+ P3pOLzDCVAmyW6sIFKOR FEwCNU7OYAmbcZX+ EFLrKLD6dCteMFozEJIh tR8dKIXjH2w6KcJcBuU4 IUerF7PwJRRjvkwiPh82 oK7mOpXaUsQ8JFhp V8AsjoL8HNCqrHKcCZtb PLZ7P06yj9W2CVXxCZJu HIA2vKK2kN7zwLblyouj bGVmdDsgdmVydGlj BVoeZCfbJ328PIIupIuo KxY4GaWlRyCxFMJ7B3Jm Iqy1ELYqwRraDE4wdHVq PQtqFv8vuGetlVro FD0zPCRhyzdbGLYiyX4d RSNvhXJxgGueXQ2zGWOt kicdy988VhPsDDR7XCTu uRJhJ4QhxY6pIjIr NFHpUAGdO7PeaKKyFKkh B412JFlbHbD8UZPvmePe K9VkXXJobSscOwM1w2S7 Jt3sBHYPHZInrugd dGQ+DXPlOVI3nTvsWOoi NPYvrM0iQTRmT8d9AmAd HoQ7EVemP2WqEITwtlda Rh13uU8tMiEoUsC5 YHgjS0YwjrG8IKVlfULx LWdzOSE6C08co0N8TTRg LUWpVEX6yAQ6cZ8evLse bjogbGVmdDsgdmVy sBwmZGwrCUmbO829TCJm cDsnPkZFTUFMRTwvdGQ+ QDKoHAE6gFowRAvfDWJm pP8vANLaJ5z2FiFj NzB1DSauR8QhFFVajitv Sq99mT0tSjIbBuB2ZEhc Q5UtiuW0MDFfbJVtDTjc ZDO5Z23cs7M7JJAl VSRvPOL8mFG2oK1qfSyo bjogbGVmdDsgdmVydGlj BMyoKKpfN610GPGhcVyk QuNrLYMkZT2zqHkt dGQ+XF61vy33C2StBzlk Bbz9FZYgAGV5yPX6fC1j REGjHDooc9O3vAA6B9Jk suZrya4sd5fmZSUh QCqaJ40kcZHmb3Z6YTOp eRM3PDZceDuvXwGvsF97 Oyc+XCMfhAcnq3IvGgyv e5tic9ibaFv9KsBn DRWvmlVbkVqsHMO2o3Wr Pl96W81nWZjsIWBzZHLj WPEfFDRkcOthgi2giU4l Ii8+AZRphSA2eCY8 kM2pCrQdYmP7TBtxK192 IaYpwSTjHzmlk3adj6op mLn1JjWzEKUlbkBbeRcm PLZ1d7EeGx51I7Ra uTppr2VwSps8bz75lSJx l7W8lPQ9G5RuGZQyyxph hDCjgKzrTH1xPAWdlxsr BNPzxT1cBRNaX4z6 QvDoEdP4NCoaM8McefZ7 ENPxlGZnWLKtvXKHoU5t sgcgk9yjzkipYsAzVPOh QKs5QPr0WJPirDiz GlWcYJJ6ViD9MRO7sLNt xY5ieUivtlxxtF4xShp+ HOc3s2cweQMsPD6kiAC0 UK32WY86sWAyz5P1 zLM9S2JqUNEjwvdqrqdj vLM8KQToZYAalV85Hf1c dYyuHt1uOVQhOQS7GDNn oKGcE1OsyX2xEtQy FGXhPOIjK1JaiZQpURnr X198JTptVqR8UUZwemKh Q1UwRGPjwVctIbM0d2Q3 Ws5LYP33LB00WK78 pNUyu5J1pIG7K6HdICEo xpccxffmeXY8WYHaDSNn xK36Jc7zeAgtCd4wWAUe SVK4OSXaoXNsJ2Iq zD1xBqArLWShBPAuL8Ga kTTkETcrX902TPskRgN4 TZPvhaMuI4IqYQCcwPzh XaZ4n2I4Xe1OPs49 WM48QI86uIZkj8Z2gJI1 V6DoVHKlsdromxaseXM7 ELPnTHQooH77Jb9dbHxe Rh8pGJRvWLT7EPUn yIPdY6ClvV6aKaGtCGKo UPGdV6MjsHIsOTmmI456 HSdoYxB5CLOvchPxZ1Wu KKIhoBsfGjH1p2U1 Jh9JETjjcsu9X1CxNtff dHI+HA18VFRwZK04yWWc sZIbw6ezjXe2PaCxFGXm HQH9oRfzQJrhk6Si ZXI (more content not included)... Normal [facility] ED Clinical Summaryon 2022 ED Clinical Summary [facility] - Emergency Department [address] [place] [address] ED Clinical Summary PERSON INFORMATION Name: LIA DESAI Age: 22 Years Sex: FEMALE : 2000 MRN: Acct#: Visit Reason: Hip pain; LEFT HIP PAIN Arrival: 11/15/2022 16:28:10 Discharge: 11/15/2022 17:02:00 LOS: 000 00:34 Check In: 11/15/2022 16:28:10 Checkout:11/15/2022 17:02:00 Address: [facility] [address] [address] PCP: Provider, None PROVIDER INFORMATION Provider Role Assigned Unassigned Anusha Palomo CNP ED PA 11/15/2022 16:30:26 Zara Jayne 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 [employer] Nurse 11/15/2022 16:32:34 VITALS INFORMATION Vital Sign [...] verbalizes understanding of instructions given Comment: Normal [facility] ED Patient Summaryon 023 ED Patient Summary [facility] - Emergency Department [address] [place] [address] PATIENT DISCHARGE INSTRUCTIONS Patient Information Name: LIA DESAI Age: 22 Years Date of : 2000 Reason For Visit: Hip pain; LEFT HIP PAIN Arrival Time: 11/15/2022 16:28:10 Primary Care Physician: Provider, None Attending Physician: Bennie Sharp DO Comment: Visit Diagnosis: Diagnoses This Visit Hip pain ([id number]) Sciatica of left side (M54.32) The Pharmacy at [facility] is open Saturday through Saturday from [...] problems; contact the [facility] 29/10 Crisis Hotline -Text 9THQQ ex [phone]. If you received any narcotics, sedation, or [...] and treatment you received today in the [facility] Emergency Department were for an urgent problem and are not intended as complete care. It is important for you to follow up with a doctor, nurse practitioner, or physician?s assistant elementary teacher for ongoing care. If your symptoms [...] so we can reach you if necessary. [facility] Emergency Department has provided you with a complete list of medications post discharge. Please inform your pin drafting machine operator/provider of your visit and for further instruction on these medications. Any specific questions regarding your chronic medications and dosages should be discussed with your primary care physician(s) and/or pharmacist. Medications That Were Updated - Follow Below Instructions [facility], [address] [place], [place] [id number], [phone] Updated: predniSONE (predniSONE 20 mg oral tablet) [...] included)... [facility] [place] Progress Note - Nurseon 11-06 Progress Note - Nurse Patient walks to room 6. Patient is alert and oriented. Patient is here for left hip pain. Patient states Saturday she was in the shower and bent over and pain started to come about. Patient stated she had difficulty getting out of the shower. Patient has bilateral low back pain. Patient was seen at [facility] on Saturday and was diagnosed with sciatica. Patient is to see her PCP next Saturday. Patient was prescribed Flexeril and Naproxen. [Electronically Signed on: 11/15/2022 16:49 EDT] Devaughnjuly DANIELLE [Verified on: 11/15/2022 16:49 EDT] Zara July DANIELLE [facility] [place] Coding Summaryon 08-28-2022 Coding Summary HTMLBase 64 TetvgpypAPe3kTa+PGhl YWQ+RR7EEFWrE32krJEo sY7fD6VLWBvRDaliGDMJ EJyYYxWgiwBtED5jtBVi ZXJu IC8+ZU3cGSQvNszrbEHh v4S8iZV9T07hbp7vRHfl sFV5XIDjEiKzryeod6py dXy4FCvoFxlhXaKs ZILfkD99XSI1kH82Sf29 uNTinMIjh3ivwPo6RkHa MXLuWQM8lMhjWGlqx8Ro FHRmZ84mkJIin7I0 IGNvbGxhcHNlOyBlbXB0 mG3lOBgyxszjy3fnuywg Bjs4jf42qTTcc1A5nNY8 Q4PjebF5KMHtqYJz ItjctPSGiY5paqjim5ey ahdhVdBoFYDuJMz2JGd1 PUJdrMshCmFxTY20BHF2 IINollUuY6WdQMNx lKrsAaL6j8A5Wu9JP7PB QqjtK2AKWORABQvzpCL+ RS18bx56M3IiQrzeJob1 MQLbUCD5zNU7fM0l GXRfTEohq2V4rNO9T0Iq kvRqqm8bz4ueGMGuABre N35gnFTyf5R9USWgoDY6 FDQnnGxqBfHabT66 Oyc+THGpjTikj5WuNbfe f7fhr0putHt2OqboMMTd riFniXitTXZ8v3HkYz0i LMHqeFX1zHA1fI0l CxOkYlE8DVpnO188UpXc gPHaRvkkM94nZ9AdvPA+ HXVgLri5HYNimMfzTY6e Y0WwEUWfvgzwaHQj pEdhYL7tBFJjgeihYYXa eH8aSHTsT3w3XcDjWrE1 JSdkJ3ZnDCIfyoqbWb01 wJ8aHjVpWkI6BDyj X5TmnhU9EFVxtDQdHKlg QGR7J38nt2Z1IBCwNKUw HWC5dIN4jL0vrWmhpptt bGVmdDsgdmVydGlj XLctGUojC781JYZspHdy PkNvZGluZyBEYXRlOiAg MDUvMjMvMjAyMzwvdGQ+ GUPbUWD5sHfoDSQt lYSuKVfpSa0naQureDhk QG2hCMOcnjtwACNokJ0q MXEkkIQvnEbaHM0uNBRf cknjt939FoNvVAT6 NDUlsHFmX8TfaP6fGvSq ELBgVFFwJ2ExyXEzTPhh Y304ZKhjSfX7BBLnfnGh G2NsODHrxLeeCjY1 a5Z9Wg7Dt7UwoikqV5Ko bAQzSyRbXqmdNDy0F2Nl PjwvdHI+IU11DIIvIN31 MOd4YPO0qSdlWAjk IWPcK6HnnS7zIkMgTHAf ZGRkOyc+PHRhYmxlIHdp ZHRoPScxMDAlJyBzdHls WL3gIx9oYLGtCQBs rPoyqKMoIoHdj2pzUERl UBkzCU5tzStvK6OxyBF0 EKTfa9f5Lf43M43hG4Cn dXA+RSUxpHC3gPU9 sA8mPxBeTaD2OFuzG620 UxQziUOpHjhlj8wpo8ui aNu2XdS6ITCwpvJjcSyv EOM3z5YrYp61B52d IHdpZHRoPSIxNSUiIHZh pClasy7aoD7pXj7+PGNv sIQ7jSL3yK2kNeQoUlC7 HJnhB461GaBpuSNw Tvnzw6ukb0oicTi6YbCu IICkcxIbpQetGFI1u3Cy Xd09K0OnrUbyx4StWqh1 je69qJWfr2B6cPN8 Y0SvSSCynnjanMHxsIha NC6dTCTpmurePKNidY3y BSFbR5k2CyGvVbM0ILiu M7RjnwU7YEXflNTc EXKbaJTJlB4wbowhg8ff plyvBvWyMOLbJAw4HUp2 BNAulTsnEaRjSXK8PuO3 DKD0iLQayA1xvUbf pqthrB3pFmj+XLO5rAVu mCIUJU3yFtygpMN+PHRk CRV6yQyyYApgZDUfpA5a GTBtL9y2TlNtZhU0 VXhyF6QtrlZ0UYFekXXn VQEdmBRWsY9uijjfd3su qgaeIqVjKJLvBXg9JRv9 LWFsaWduOiBsZWZ0 CjW4XWX7dFIjlM7flQpk amvbmG6tQle+QmlydGgg QSZ6MKc8K3GnFeg6RZBs mXxqJT2uwDDtMFkh Ly5myQxpbRtwHH4bKUIt xwesb436TeZli7yeLNEg nWJbUKqoLAF3Y15nb3G0 NGCfJEEgMFC3gZZ9 yB9cqDissrxjuDRpsStj dxMdhHgnMXybUDdhX729 FCOlwRnhVzSrTVj2Q5Sf Vbf3DXWpeElkZP2p kPNuJPyrUd8xuKzkeGta HP6qMMHgwvwkj224QpDd d5itKBSiqFCbXUlbABK9 K50np9F9ZBJtAVCx VHE3sVK7uK6qiZwrcqjq bGVmdDsgdmVydGljYWwt GNetD812HPLeuLyrRzSk gPd0T0NcPps8GWHk jMobTE5xrUHcCUrcBh0c zWmapBadXY4eENChltbn m572IzOyh1abXZJsqGMb OMrsCLT3V34nj7L5 EKYgUBVkZWS6mES6yE9b bGlnbjogbGVmdDsgdmVy dUorMRmbPEedG595DMJf cDsnPlBhdGllbnQg SXbyXEo4I8ZuVgwwsFX+ ST64FNNhGU29tTUebXWq e6poeYo1JrUgJENqVRG4 pLtsPFwrv2PjTQNx X07siXOcv8J5AQOhxLvh mQHwTnLbcWM3dY9gVVqy nfmmz8zjvaliPipqq2au ky16bM29H09sFZtd ZHRoPSIzMCUiIHZhbGln xz8liP8hUy9+PGNvbCB3 eGZ8iJ9zZBDzOgN4XWym J662ZaPqtGHpKjte h7kmg5acjBh5LxU9ZLDo qvUrcPdtUTR1b1QwSk47 D41dTOqrLFBoABBsGRXs YPVzaYdqyh9xiZ5h Ii8+MVAjvEH9aGZ1uR8a OhCaIxJ7QJvaU139WnEl mUXvGisuB32hU9JjtHV+ EZNwMtb7LHFppUgy VX9jiSHjFEthXm2eWFB1 YqCmKbRhQVzpW9RaSQCc pdfwtiyepHS9BZKwQUOq gQ00Kq4hpWvvXZOk jLZOrN6zyeozt3yemjgz VhCaYFYvTRz5OMf2PQEz uVjmDtQdRCK5GfB0EDD3 cEAszJ8qmFgbngtr kC4kJ1BoUENmgvbgPm47 oH1rXfQkFyE4NPjdQpp+ Z4kPRhVGELzrX1aUNEST PTnYTO5JWGuclSH+ LVRkNPH8kRbkKZnbLVOl sQ8hUHZeQ2f2EqLbFaP4 CFbdZ0GxJLEuxlkwVf43 xG2rWeZnPpK7JDsm R1XtthJ6GONflJBcAAob XEY0E37du9P6PDPfFDXj QTB7hJS7bQ4zjCubudls bGVmdDsgdmVydGlj TKudULfbR706MMObsTvy JkA6EkCrVcCwUEC3C2As Gqe9YMSteFbgOJ4ibTDj JJztTd0snLihuPit TF3dWWAfwnxwNFAbkC5c TUEucHQaoGliDM8lKPFw assxx058HtJhYFW3KNTu sGZwU1VthZ8lDkFv ULYvKRYnW8QhiFMmRBvy U073BKcuMcO5XRZlouBb Q4XpSFIfzPtuXlB2i8O4 Bz2sJLPRERShefpk dGQ+MACxEQH3aBdoSKuk TOGbbF9oDVPmP7t0VlTc TvN9NGfrR9YtKHBrmuqs Ss71xH1wJaDlObP5 QYwbM9RgheC5NQGlaTGi UKqwHUI4R18jt9G6LOQz UNOiVON4eWZ6uT7cdYtf bjogbGVmdDsgdmVy yRcdDWwjOMuxV367BULj cDsnPkZFTUFMRTwvdGQ+ APRlYRM0fWjjFZhdQEQm eK7tVKFnH6f6ScUp LoS4HSrzY9ZzWXNvlnmt Mb06nE1nSnKjXlV5JKox V6GrlbM5TWGeqWCbJXqc JYC5W91qn3Q6KHTv KXWfYAE7fOR5gS4lrNzq bjogbGVmdDsgdmVydGlj BXhgGZttC837DRAyeXmo Bl7FXN50AB41V0Kx PjwvdGFibGU+PHRhYmxl IHdpZHRoPScxMDAlJyBz rReaDD9sZy0hQIAnVLTs mOijcCRbLfNmi8ho TFLqVPinHP3tnXxbU1Ll rNQ7KHFmt5u5Gm53I05a F2DmxBZ+ZZWmoHN8rXK9 aP2yLhQvSeE5ASsc U978EuVfnHThWwygj8xh z9iwgHg6QfNoCGEbtkZl mYtuIRG4x9OuTc67X43k IHdpZHRoPSIyMCUi BSRkbKxtug8hmH7aMc7+ FXSxzKC1qIF8oV9hYhAr MoR7CVoeW246FmIjsKRv CxyrK61jV7AsvVZ+ LGCqLjk3SVNiqErkHE1m qVHqSKtvXy7uYLH8OoBe PqNaXRffW1QlMBJsgsfi goutjOF6HIPgBYLx eX32Zj2xpAkuJo3iXROf XSX9EUGxaASqO1LvtE6t IcQsYXDxMMUxN4PpdQIv SUhjZ294QLtrFuB2 SGNegiQuM9QdSWLtrCde MdD9y4B4Nt8CqYotsKPn TP3fZyXfCAp4M7XsSab4 KKBicBgjBC5qoTSq OZueKb9nqTgafIgzFZ8f CZUlnonzj364ZlVvh6wv YRUlrSKzAZzlJOY4H30u d1L5BRWlMUAcHLT3 mOK2uT8dvBgkbdbbiUVl dDsgdmVydGljYWwtYWxp V942LEJugTmnNsJSAop0 Y7GpXgr2EYVuzRdp WD5buYMfDVybOg9yzQpf pKhmPC5oYWPrtddha853 NaMds0hnZKVmdDAwLByx DBQ5U17hk3K5GAOi EKAoULA7iVY0gX8keLmf bjogbGVmdDsgdmVydGlj OAprOXrtI742VXHfyUah Jp0TQzm2P7QeIfg6 JOJhlWzlXG4orYQjSCiz Ch7oiUpveGjjQG2cTQLl xswkn012QlTjz8hkHEOf pYDrJAfyVPL2V14f a4N0WSCyIRHsFUD8cHP9 dZ0wlDtiixeazYEjkXgp yeHvvSamUZnhJZtzD270 IHRvcDsnPlBheWVy OjwvdGQ+UK20rc53Y4Xz KabkNbh0CGIvNEE9eQB8 qV5qTAIeDZbnz2N5bHU0 Q1GriaMdvi3rp7dq YXB (more content not included)... [facility] Physical Therapy Noteon 05-2 Physical Therapy Note [phone] [id number] #1.00OTGTIFF Normal [facility] hCG Quantitativeon hCG Quantitative 3.0 mIU/mL High 0.0-0.6 [facility] Comment on above: Result Comment: Post -Menopausal Reference Range is: 0.1-11.6 mIU/mL Performed By: #### [id number] ####[facility] (DEFAULT)[address] [place] [address] Coding Summaryon 08-16-2022 Coding Summary HTMLBase 64 SpnszrzrRNi2dRz+PGhl YWQ+KQ1CYQTxQ56qsAAt lG4AZ7oORR5ZHPJYGGRN RV8IGG6ueSS5IEjnE9Wo biAv TblihUPsYZ14DKn2ONS4 nFnxOTszmP1thFWpA9b3 HdKwWG77hE10SNmxUTCj WtY2OgTatrzuoYGx O5itUbUbvBIfVcb+PHRh YmxlIHdpZHRoPScxMDAl WlKryRzdCD5cRp1aQKUj LWNvbGxhcHNlOiBj c1saKYFhYDngIB3rmXbh V4PzjUE9ARJeq5p1De47 dHI+TYZbUUD6eXfpYHci d469DhDoc5pfTBP3 xHKzXNdnBAG1G85nz1O4 FHFcHGNsRDC3jMI8iX9d oGdrsifeP3MclLAqSaZ2 GIC8oGNruL2oaXdl hcasaO9mSaz+R87QSO1M EHKVAB7FRii2Q2VhBaii dHI+DQ32LOUvHJ22mRQr lDAfh7rywSi1NiWo UMAmFWF7yEweDDnjq3Gd NXVaM64uiWQii9W6VJWj eWgovLOoCyQkzBV2dM9b YEgqacxlg1nsacpe Jfjwg1jaez53dM61V71q SMbtTOEjBZR0NIAoLGRg fBxtlo3hnJ4aHr8+IDxj t5hkh6gzjLf0HlTf TZYaysCdkEyjYNQ1v0Ju Ly17C9BmrNgvx0NmZhs2 ze86jCWox5C6wVK9MOhb FJPwuN1qZNoiLrJ2 VTZhZcSllP85zZKhPNwa Ux2ezDhrgBqxFE1bTDGj ibpxHASrzB4fZNJrjMZd zDakPN5gZMJpmptw r806RiHiHOV1NXZzgLLq R8BynF0sPxPjAGErEBPz P5GnqGYqOYwfF028YXxp GtN9RFKpzzIiC1Vx DZRciXbcClA2n8C4Vd5M s4YrvwlxEVX6QMhgBCU6 SrDyVvDxZlN6Q2IcAtw0 FBSevStkDF0tT9Qe KXTkhadrkaptySU1BZKo HUWqiA85jIKaUAghAx5o r3R0y574QQZeOPCbkJ99 Op0vfIimMZRfsLPX aO7cuiwih5tkwghwNvLh RTThGKj4CLv8UQGhuLeg SiFmLKO7HrK3SSF1tPQr eS1esRqdbjpgjR0l Oyc+A69tlG9fGBZ3XAW3 omsgUNQeklEwVM88JG78 U4GaHjxytKEekOH+PGRp zoHzwHdzSI4sPdFz o9vgm3LiOTifF9NhDUOo UQqwOab9CJCuWZV4bHX1 uC5jDFLtZWuhl0F1uIQ6 L6NiehLqrw4fo2tp RQExMCrbO74zeXRdd4C0 RZZjdWD8SNPtvFfnYrFx vJ85Khe+RFIovEgcq4Ss Adtdi5qaw2houCf5 IjMwJSIgdmFsaWduPSJ0 i9VaAk00O64zSRcmVONa UWZdLPZaIQAikFllwh1f gX6dVs5+PGNvbCB3 kII1vX6sKDJkQpW4YIxa V706BeXlrVGbGfnql0jq z4vlfUq5CiMjHWNpfiPf iQmlHEE0o9PjNb46 O93fDHsnBNNwHKBxPJTj LQCilOtzgi0awB1jYp2+ LX3un5xuee94nP63aYP+ ETJdXJN6qQnzRUlw DBKivJ8vHJreUeA4IHVg EqXsyZ13xSGdSNrfHp6h iVfuaHigEF4oRPVnlyji h925XaToj2twTLCj hVPvMHwvSWD8K18ea4T1 CZHoXIEpABI8uHK5dG3h bGlnbjogbGVmdDsgdmVy xKjyTImuPAzpT018 IHRvcDsnPlBhdGllbnQg SzJqSCj7P0McKyg0SOJn uVizCC3adYVhPSfqCr9b wZkfcOtlCQ2kTJYe mtgnp170CiGes5dmMFDd vCHcFNtpIUL8C50kz8T3 MZFlOIPaLZL8eIY2zL2h bGlnbjogbGVmdDsg nvVchFcvGDioDFnmR862 IHRvcDsnPkJpcnRoIERh eVJ6CA86IP03yHWil0X9 oPK6T1OfTEAajxvn snslzUH0UAWzGWJyvB89 Du2xhMeqAg7pXWOfUNC5 ZFJvjAHpQ3NpfR9qJyQk BPDyQAYqY1ImfZFd FSoeI685BOddKfQ3XCQr dlMzB5HaMELjkGhoRlY6 v5S0Bo4JY8B6WR56QW19 zXTvs9D8fRK8A7Rq PTTlrgarykykdQD9YNUg DQSudN32Xd9ulMraTm4z KPZbIGH6ZKCluCJmF9Cs wB6pHqFpTXPvHGNz Z8AvcWHaPSxeU856PQao UnH7IMZqodHyH8RqITXu kMjfHwY8a9L1Pu8RZJo7 ZC98OT73dENqx7W6 nLB1J8DmVSFtpojyogzp cXG6YUWlJTNnzM70Cw4x rVktUm4bKYVeHXR8SIMf qLGjK0OxnT6aPwNi YRVbBCWlE3BtjMMnRRjo S635FChaSsW3HYVfvuNq E4TeJAXnuEnyEsM8b5O4 Lz9NCDWgCF43TBO5 bIW0RV08HO37H0SqXpgp dGFibGU+PHRhYmxlIHdp ZHRoPScxMDAlJyBzdHls BN1cVe2qNQHhMYPa xTfzbVXqGoXwj5fjCFMl OVucIR4zjGyjY8HrzBL4 TNQnp3r5If73A77kZ1Se dXA+KTSrxGY3yYC4 yA6nPyUhJmT3XKtzK930 UmCpdVFxUremd0wuw1wa gAs2QhT0LNIvjeCsgPxd SVP4q1NwMb34P33a IHdpZHRoPSIxNSUiIHZh cYqwka3jeW8fDz8+PGNv uIX1bVV9mS5tIkCcNtF6 ZGbpC159OwMyxEJz Hrvvm3zye1dxdXe6ZwGz CHVohqVnaZdaFAD1r0Zg Ph52V2FshAgdc4JdRzm6 bw95qMHrd0R3dXS6 H9SjFULswhbqvDVttXxa QK5xVLVpszzvWIRjoX7m MKUbR9r6KhSnQjB5ZDew P0EtibD5FXDfwBUi ODtuDMA3X87dq8P7BACm HYWsOBV9bEI8bV8nqDqb bjogbGVmdDsgdmVydGlj YKijCEszJ743QFOj dBvrUWLpdQ2wXCVaiWNu fIasAF8lUMBqsajmBxiI TEJFUlQsIFNIRUxCWSBM GPGJXfL0A6MsKfi4 HZXnnGlfNO7kcLXaXDjj Im0vwFczrOddMK7sASUo ufpvCBOwaF8gWBPyxAOp lIonNC4tMMPbzjou j920SkTwQTD0PFQjfILj J8MntD6tFkGyBFUdPXQo M8LahCBdKLijA925GRxk OeP0KVXzrpHnF9Zs PJDcjOkkBjA4f7E2Iw9z Lm5sAt7iHSNaZS47FX92 fCBwo2E3mGH8L4QmARLs ijbibzkaaPE8SMKd QWOlfD96nRJzIIfhWd5h u9S3u054PADzMYBknN92 Ck3bzLinJCEubDENlK2i uoysu8cnhlggRtYh NJSjYAd3UXk5GWDemCtw BjKrZVY1XuG4UIB4iDRu lR2cpPjdtvvhmY7nDqp+ ZoRzRIJjscJ1U3Gw Etm9IFHjvQonGW3kuCOh BXbkFz3eqKemuKneIY5o WJXsecgsFAKwdL2jVHJv rSHnvRfjJQ1oZGYo qjjft818FtTrZKP2FSLw rGViW2PmpO4nWfBfSSEf BTJlI9JvzZSpYZizV448 JXqnByD7WSAqjtNa B3ErTLToxCnzPbY0b4W4 Gg3WGZ7BSLT6T6JgHfn1 YSXjpPqdZA5yhAXvQEov Mm2caUbcyFveHP3h SAMbrqqtPFQxlG6cXGDj gFCytNvrEG7eTUYknkie u728EqYpESE8SDIuiGYo V6UljS4nDuGoWFQp KAMhO1KysMIkLCyiJ701 MAlnOeL6HQGnffFhZ9La CEYytZzuHeQ8e6X5Ge6E rXYjE3UiX1o6J0Ws PjwvdHI+IJ32TWWcYM66 dQSstTUbk5qypBl2GnEb FMPmOKW2qIwmNVbrp5Qk MQLrC75pcUDsn5M9 IGNvbGxhcHNlOyBlbXB0 mN9wFOgsurbge6icvxke Iwxhb3zyub84uE96Q67t IHdpZHRoPSIzMCUi OIAovCtzrp6ciK9xFw2+ QJYgsLE0vBG3gS3rClCk NuU7IRktZ634TiZymGEe Aeusi5ept3wibSi0 IjIwJSIgdmFsaWduPSJ0 i6EwKo52Z56bJTujASIw EUMgMFVqGQKzhHbpsm8v gS2tCo0+MK8uy5ex ta68xO67dVN+PHRkIHN0 jGyrAOawPVXioS7sCWsu QrD9YJQuTnGvlF22uSVw OGlvHh7phFfxdEus CQ6xYRXiashyb612LfXh a8hoWGHgwOMwQAhfYRR8 J00rr1D9TRWhLAJgCAK9 uNR6jY6bvSqrskhb bGVmdDsgdmVydGljYWwt QNrtB036UXYorSfuBiTh yNUnY0ppmiGYGB0rVazw dGQ+ZIZsZUL7gQri TXruSRJjeG3nOVFeD2u4 KjHaEyP0PJrkU1NvhjL6 VNZwkWDaHELjzSEXjW4k xalba9ufbkvlSeHi QJSdPIb3GGd6DSHgpLag BfOdZER5LhS6WCM9bLPm xK5qgJlzgkfmgT0dPph+ RklOOjwvdGQ+PHRk DIS9xGxmLQchFTFoaJ4i ZZJdU1v0LxMoMfR1TAfx G9QikmD5VCHbfPHlPECt bBPPtY3nkhelv6ut zozbOoOnOSXpKEw5ZNi1 HUHdoZkmCoWzSVC7ClU0 GDH3xBOwqS0obAmpxpdy nI4wHgx+TVJOOjwv dGQ+DHXhQQT4gQqoCYlp TYEdxO8nTOKmT5g3WjBv SzZ6YIbsG9HmxlL3XGRr oKWlQXUjkVKGqU8a jcaer7pmfcaiRfHbWQZb NLs5PUz3UBUwnMkwIsDk WIX1AcG5BDQ7pAMlfS1m kBdlxujscP8jYnu+ DZE9XCP7RR68PW84J9To PjwvdGFibGU+PHRhYmxl IHdpZHRoPScxMDAlJyBz pPtyYP6xSe8pJBDq LWN (more content not included)... Normal [facility] .Auto Diff 08-11-2022 Auto Young % 7 % Normal 04-19 [facility] Comment on above: Performed By: #### 1 [id number], [id number], 8533906, 2240107, [id number] ####[facility] (DEFAULT)[address] [place] [address] Baso Abs# 0.1 x10 Normal 0.0-0.2 [facility] Comment on above: Performed By: #### 1 [id number], [id number], 7404017, 3014085, 65174749 ####[facility] (DEFAULT)[address] [place] [address] Basophils/100 WBC (Bld) 0.8 % Normal 0.2-2.0 [facility] Comment on above: Performed By: #### 1 [id number], [id number], 9046479, 2904686, 41977894 ####[facility] (DEFAULT)[address] [place] [address] Eos Abs# 0.0 x10 Normal 0.0-0.4 [facility] Comment on above: Performed By: #### 1 [id number], [id number], 1729688, 9224520, 71611276 ####[facility] (DEFAULT)[address] [place] [address] 91872 Eosinophils/100 WBC (Bld) 0.4 % Low 0.9-4.0 [facility] Comment on above: Performed By: #### 1 [id number], 1355600465, 8129764, 7465980, 92898145 ####[facility] (DEFAULT)[address] [place] [address] 17913 Lymph Abs# 3.0 x10 High 1.3-2.9 [facility] Comment on above: Performed By: #### 1 [id number], [id number], 1857974, 4845603, 42539404 ####[facility] (DEFAULT)[address] [place] [address] 90416 Lymphocytes/100 WBC (Bld) 25 % Normal 14-48 [facility] Comment on above: Performed By: #### 1 [id number], [id number], 9354597, 7042160, 42650208 ####[facility] (DEFAULT)[address] [place] [address] 16025 Young Abs# 0.9 x10 High 0.0-0.8 [facility] Comment on above: Performed By: #### 1 [id number], 5038018726, 3915966, 4177522, 20709385 ####[facility] (DEFAULT)[address] [place] [address] 54244 Neut Abs# 8.1 x10 Normal 1.5-9.2 [facility] Comment on above: Performed By: #### 1 [id number], 1456630433, 9248097, 4208416, 27895808 ####[facility] (DEFAULT)[address] [place] [address] 66922 Neutrophils/100 WBC (Bld) 66 % Normal 44-88 [facility] Comment on above: Performed By: #### 1 [id number], [id number], 8847953, 6449274, 73329935 ####[facility] (DEFAULT)[address] [place] [address] 14803 BMP Standardon 08-11-2022 eGFR Non AA >60 Invalid Interpretation Code [facility] Comment on above: Performed By: #### 1 [id number], [id number], 9387720, 2136803, 83328443 ####[facility] (DEFAULT)[address] [place] [address] 67157 eGFR AA >60 Invalid Interpretation Code [facility] Comment on above: Performed By: #### 1 [id number], [id number], 3809902, 9303743, 51338778 ####[facility] (DEFAULT)[address] [place] [address] 26514 Anion gap [Moles/Vol] 18.5 mmol/L Normal 5.0-19.0 [facility] Comment on above: Performed By: #### 1 [id number], 1069252637, 8743233, 2731996, 93889445 ####[facility] (DEFAULT)[address] [place] [address] 83973 Calcium [Mass/Vol] 8.7 mg/dL Low 8.9-10.3 [facility] Comment on above: Performed By: #### 1 [id number], 7551366163, 4917939, 1833116, 12882150 ####[facility] (DEFAULT)[address] [place] [address] 99669 Chloride [Moles/Vol] 100 mmol/L Low 101-111 [facility] Comment on above: Performed By: #### 1 [id number], 6636576715, 8839828, 3362100, 20252869 ####[facility] (DEFAULT)[address] [place] [address] 90838 CO2 [Moles/Vol] 24 mmol/L Normal 21-32 [facility] Comment on above: Performed By: #### 1 [id number], 1436403434, 5476373, 6185811, 73807650 ####[facility] (DEFAULT)[address] [place] [address] 45846 Creatinine [Mass/Vol] 0.57 mg/dL Low 0.60-1.30 [facility] Comment on above: Performed By: #### 1 [id number], 6841933223, 4680999, 0808152, 43373522 ####[facility] (DEFAULT)[address] [place] [address] 26983 Glucose [Mass/Vol] 98.0 mg/dL Normal 74.0-118.0 [facility] Comment on above: Performed By: #### 1 [id number], 8690293644, 4944909, 7863447, 54786686 ####[facility] (DEFAULT)[address] [place] [address] 21807 Osmolality 274 mOsm/L Invalid Interpretation Code [facility] Comment on above: Performed By: #### 1 [id number], [id number], 6050280, 1123544, 90079712 ####[facility] (DEFAULT)[address] [place] [address] 07111 Potassium [Moles/Vol] 4.5 mmol/L Normal 3.6-5.1 [facility] Comment on above: Performed By: #### 1 [id number], 5021589767, 0386213, 9341055, 13497985 ####[facility] (DEFAULT)[address] [place] [address] 88457 Sodium [Moles/Vol] 138.0 mmol/L Normal 136.0-144.0 [facility] Comment on above: Performed By: #### 1 [id number], 8609428753, 2438622, 2159716, 27255196 ####[facility] (DEFAULT)[address] [place] [address] 78077 Urea nitrogen [Mass/Vol] 9 mg/dL Normal 8-26 [facility] Comment on above: Performed By: #### 1 [id number], 6656262074, 7345730, 2658902, 46016731 ####[facility] (DEFAULT)[address] [place] [address] 00298 Urea nitrogen/Creatinine [Mass ratio] 15.7 mg/mg Normal 4.6-16.2 [facility] Comment on above: Performed By: #### 1 [id number], 6112426830, 7277943, 8440822, 68723420 ####[facility] (DEFAULT)[address] [place] [address] CBC w/ Auto Diffon 3 Erythrocyte distribution width (RBC) [Ratio] 14.1 % Normal 11.5-15.0 [facility] Comment on above: Performed By: #### 1 [id number], 2813682987, 7153240, 0180907, 14633983 ####[facility] (DEFAULT)[address] [place] [address] Hematocrit (Bld) [Volume fraction] 36.8 % Normal 33.7-40.4 [facility] Comment on above: Performed By: #### 1 [id number], 0437026463, 4756066, 3827766, 55109264 ####[facility] (DEFAULT)[address] [place] [address] Hemoglobin (Bld) [Mass/Vol] 12.1 g/dL Normal 11.3-15.9 [facility] Comment on above: Performed By: #### 1 [id number], 7472643990, 4784025, 7839493, 22315083 ####[facility] (DEFAULT)[address] [place] [address] Man Diff? Auto Invalid Interpretation Code [facility] Comment on above: Performed By: #### 1 [id number], 9857136867, 7455253, 6962301, 37323314 ####[facility] (DEFAULT)[address] [place] [address] 38585 MCH (RBC) [Entitic mass] 28 pg Normal 24-34 [facility] Comment on above: Performed By: #### 1 [id number], 4291360681, 8073039, 2751666, 34539048 ####[facility] (DEFAULT)[address] [place] [address] MCHC (RBC) [Mass/Vol] 33 g/dL Normal 26-37 [facility] Comment on above: Performed By: #### 1 [id number], 9088903206, 6462147, 2658080, 98166334 ####[facility] (DEFAULT)[address] [place] [address] 29912 MCV (RBC) [Entitic vol] 85 fL Normal 81-100 [facility] Comment on above: Performed By: #### 1 [id number], 3874574606, 0717489, 2247400, 33920364 ####[facility] (DEFAULT)[address] [place] [address] 06005 Platelet 367 x10 Normal 138-427 [facility] Comment on above: Performed By: #### 1 [id number], 0916361251, 6714940, 6238045, 38203345 ####[facility] (DEFAULT)[address] [place] [address] 61738 Platelet mean volume (Bld) [Entitic vol] 8.1 fL Normal 6.3-10.2 [facility] Comment on above: Performed By: #### 1 [id number], 1324574074, 2765906, 5277085, 30570064 ####[facility] (DEFAULT)[address] [place] [address] 28875 RBC 4.33 x10 Normal 3.70-5.30 [facility] Comment on above: Performed By: #### 1 [id number], 1338879478, 5150690, 6224432, 09640813 ####[facility] (DEFAULT)[address] [place] [address] 28759 WBC 12.2 x10 High 3.5-10.5 [facility] Comment on above: Performed By: #### 1 [id number], 7615977468, 1979815, 3412143, 48785780 ####[facility] (DEFAULT)[address] [place] [address] 60709 ED Clinical Summaryon 2022 ED Clinical Summary [facility] - Emergency Department [address] [place], [place] [address] ED Clinical Summary PERSON INFORMATION Name: LIA DESAI Age: 21 Years Sex: FEMALE : 2000 MRN: Acct#: Visit Reason: Vaginal bleeding - < 20 wks ; 7 WEEKS, VAGINAL BLEEDING Arrival: 08/11/2022 12:41:34 Discharge: 08/11/2022 16:30:00 LOS: 000 03:49 Check In: 08/11/2022 12:41:34 Checkout:08/11/2022 16:30:00 Address: [birth year][address] [address] PCP: Provider, None PROVIDER INFORMATION Provider Role Assigned Unassigned Adamaris Jaeger PA-C ED PA 08/11/2022 12:44:39 Arabella Romano 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 Resolved. Comments: 11/23/2020 CDT 16:07 CDT - SYSTEM Problem added by Rule (IC_COVID19_AUTO_PRO BLEM) following 2019 Novel Coronavirus (CoVID-19), MILY L from Nasopharyngeal Swab collected on 22-NOV-2020 16:44:00 EDT tested positive for COVID-19. no history (038952536): Resolved. Contact dermatitis (61449661): Resolved.. Surgical history: Tonsillectomy (139666006).. Family history: No family history items have [...] quant draw (more content not included)... Normal [facility] ED Note - Provideron 023 [...] Resolved Disease caused by 2019 novel coronavirus ([id number]): Onset on 11/23/2020 at 20 years. Resolved. Comments: 11/23/2020 CDT 16:07 CDT - SYSTEM Problem added by Rule (IC_COVID19_AUTO_PRO BLEM) following 2019 Novel Coronavirus (CoVID-19), MILY L from Nasopharyngeal Swab collected on 22-NOV-2020 16:44:00 EDT tested positive for COVID-19. no history (717965886): Resolved. Contact dermatitis (63046866): Resolved.. Surgical history: Tonsillectomy (779020121).. Family history: No family history items have [...] % Auto Lymph % 25 % Auto Young % 7 % Auto Eos % 0.4 % LOW Auto Baso (more content not included)... Normal [facility] ED Note-Nursingon 08-11-2022 ED Note-Nursing [...] to do a D and C. Normal [facility] ED Patient Summaryon 023 ED Patient Summary [facility] - Emergency Department [address] [place] [address] PATIENT DISCHARGE INSTRUCTIONS Patient Information Name: LIA DESAI Age: 21 Years Date of : 2000 [facility]: [id number] Reason For Visit: Vaginal bleeding - < 20 wks ; 7 WEEKS, VAGINAL BLEEDING Arrival Time: 08/11/2022 12:41:34 Primary Care Physician: Provider, None Attending Physician: Andres Duval Comment: Visit Diagnosis: Diagnoses This Visit Miscarriage (O03.9) Vaginal bleeding - < 20 wks ([id number]) The Pharmacy at [facility] is open Saturday through Saturday from [...] alcohol and/or drug addiction problems; contact the [facility] 29/10 Crisis Hotline -Text 3GEJQ lx [phone]. 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 It is important for you to follow up with a doctor, nurse practitioner, or physician?s assistant elementary teacher for ongoing care. If your symptoms [...] so we can reach you if necessary. [facility] Emergency Department has provided you with a complete list of medications post discharge. Please inform your pin drafting machine operator/provider of your visit and for further [...] may ma (more content not included)... Normal [facility] Extra Redon 08-11-2022 Tube Collected Yes Invalid Interpretation Code [facility] Comment on above: Performed By: #### 1 [id number], [id number], 4103900, 1806870, 57668459 ####[facility] (DEFAULT)[address] [place] [address] 86226 UA Qtnfx5pf 08-11-2022 UA Amorph. Rare [facility] Comment on above: Order Comment: Urina lysis Microscopic order added on by [employer] Expert Rules system. Performed By: #### 1 [id number], [id number] ####[facility] (DEFAULT)[address] [place] [address] UA Bacteria Trace [facility] Comment on above: Order Comment: Urina lysis Microscopic order added on by [employer] Expert Rules system. Performed By: #### 1 [id number], [id number] ####[facility] (DEFAULT)[address] [place] [address] UA Mucous Trace [facility] Comment on above: Order Comment: Urina lysis Microscopic order added on by [employer] Expert Rules system. Performed By: #### 1 [id number], [id number] ####[facility] (DEFAULT)[address] [place] [address] UA RBC 0-2 [facility] Comment on above: Order Comment: Urina lysis Microscopic order added on by [employer] Expert Rules system. Performed By: #### 1 [id number], [id number] ####[facility] (DEFAULT)[address] [place] [address] UA WBC 0-2 [facility] Comment on above: Order Comment: Urina lysis Microscopic order added on by [employer] Expert Rules system. Performed By: #### 1 [id number], [id number] ####[facility] (DEFAULT)[address] [place] [address] UA w Culture if Ind Standard on 08-11-2022 Breakpoint UA [facility] Comment on above: Performed By: #### 1 [id number], [id number] ####[facility] (DEFAULT)[address] [place] [address] 48546 Color (U) Yellow Normal [facility] Comment on above: Performed By: #### 1 [id number], [id number] ####[facility] (DEFAULT)[address] [place] [address] 58313 Culture? Not Indicated Invalid Interpretation Code [facility] Comment on above: Result Comment: Resu lt created by rule GL_MAGR_ADD_UA_CULT Result created by rule GL_MAGR_ADD_UA_CULT Result created by rule GL_MAGR_ADD_UA_CULT1 Performed By: #### 1 [id number], [id number] ####[facility] (DEFAULT)[address] [place] [address] 75425 Glucose (U) [Mass/Vol] Negative Normal [facility] Comment on above: Performed By: #### 1 [id number], [id number] ####[facility] (DEFAULT)[address] [place] [address] 63625 Ketones Ql (U) Negative [facility] Comment on above: Performed By: #### 1 [id number], [id number] ####[facility] (DEFAULT)[address] [place] [address] 25680 Micro? Indicated Invalid Interpretation Code [facility] Comment on above: Result Comment: Resu lt created by rule GL_MAGR_ADD_UA_MICRO Performed By: #### 1 [id number], [id number] ####[facility] (DEFAULT)[address] [place] [address] 42031 UA Bilirubin Negative Normal [facility] Comment on above: Performed By: #### 1 [id number], [id number] ####[facility] (DEFAULT)[address] [place] [address] 03036 UA Blood MODERATE Abnormal NEGATIVE [facility] Comment on above: Performed By: #### 1 [id number], [id number] ####[facility] (DEFAULT)[address] [place] [address] 49874 UA Clarity CLEAR Normal CLEAR [facility] Comment on above: Performed By: #### 1 [id number], [id number] ####[facility] (DEFAULT)[address] [place] [address] 23665 UA Leuk Est Negative Normal NEGATIVE [facility] Comment on above: Performed By: #### 1 [id number], [id number] ####[facility] (DEFAULT)[address] [place] [address] 48884 UA Nitrite Negative Normal NEGATIVE [facility] Comment on above: Performed By: #### 1 [id number], [id number] ####[facility] (DEFAULT)[address] [place] [address] 15956 UA pH 7.0 Normal 5-8 [facility] Comment on above: Performed By: #### 1 [id number], [id number] ####[facility] (DEFAULT)[address] [place] [address] UA Protein Negative Normal [facility] Comment on above: Performed By: #### 1 [id number], [id number] ####[facility] (DEFAULT)[address] [place] [address] UA Spec Grav <=1.005 Normal 1.001-1.035 [facility] Comment on above: Performed By: #### 1 [id number], [id number] ####[facility] (DEFAULT)[address] [place] [address] 47745 UA Urobilinogen 0.2 mg/dL Normal 0.2-1.0 [facility] Comment on above: Performed By: #### 1 [id number], [id number] ####[facility] (DEFAULT)[address] [place] [address] Urine Source Clean Catch Normal [facility] Comment on above: Performed By: #### 1 [id number], [id number] ####[facility] (DEFAULT)[address] [place] [address] US 1st Trimesteron 08-11-2022 US 1st Trimester EXAM: US 1st Trimester HISTORY: vaginal bleeding, 7 weeks COMPARISON: 08/08/2022. TECHNIQUE: Ultrasound obstetrical first trimester. FINDINGS: Single intrauterine gestation which has migrated into the lower uterine segment. No cardiac activity is identified. Yolk sac is present. Cumming-rump length measurement of 1.1 cm yielding estimated [...] Signature): Jori Churchill 08/11/22 4:11 pm Technologist: [facility] US Transvaginalon 08-11-2022 US Transvaginal EXAM: US 1st Trimester HISTORY: vaginal bleeding, 7 weeks COMPARISON: 08/08/2022. TECHNIQUE: Ultrasound obstetrical first trimester. FINDINGS: Single intrauterine gestation which has migrated into the lower uterine segment. No cardiac activity is identified. Yolk sac is present. Cumming-rump length measurement of 1.1 cm yielding estimated [...] Churchill 08/11/22 4:11 pm Technologist: GANESH Myers [facility] hCG Quantitativeon hCG Quantitative 4616.0 mIU/mL High 0.0-0.6 [facility] Comment on above: Result Comment: Post -Menopausal Reference Range is: 0.1-11.6 mIU/mL Performed By: #### 1 [id number], [id number] ####[facility] (DEFAULT)[address] [place] [address] US PREG TVon 08-08-2022 US PREG TV [...] by: CHRISTIAN KATE Date: 2022-08-08 16:56 Normal [facility] Coding Summaryon 06-19-2022 Coding Summary HTMLBase 64 CfnuxmsbGSb4sCc+PGhl YWQ+WN8OFPZhV04fqWGe rY0VA1nIBA4XJWMNLKZM GM7FXP3ekTU2QNdoN8Ef biAv YcctkLNmIN76SQl1RNE4 cMujFMredR4vkBXcW9u8 SwGgLT63fA67VHfzYYCy HnY1RgSxypeqjETj A9iaBxFaxQObCcl+PHRh YmxlIHdpZHRoPScxMDAl QwHvqFfaMZ4vXp7cKFOo LWNvbGxhcHNlOiBj w8msNDMlHYomUF5szVti G9VqnHB9BHYhq0h8Fc01 dHI+KUTeZGE4pUmpRZfd k911AxIns3fvLFV8 aRIzMPyoXLO9T30bg8B1 DXXqGMOnVRU6sCC4nZ8i bXghcfrcN5NqrFEsRaT9 GAH1wBPlbV9iuPhx utwrfC3xHil+M76HGT2D WYFUZR5FBty1J0TzJgvg dHI+EM57WFGvDF65kWSd fKVoa9titXt1DeXc BVKmGVV8xGnrDVkec9Co YSWqW24ilUJkj2R8PNYc aSmrcGKpXtJpcXW7oH6f DNskilika1glskrk Jwafn1hflr92aW04R18j FPhyLHYcYEI5OPIbNBOx rVcobl5grI3uEy6+IDxj d1lwj5xiaTh1VoNy XAXjcdYgmBfiGOG7i8Sl Fd90B7BbySsuv1QoKvc3 az12jHZlj1A9mGY7HWxj QAYnmF0oSKdbDcN1 SMXmLkHvxQ58eUGgCMmb Vd6jgNknbRcvUR2xMWRh sbosHOGocT2qMZPjsUSr oQicKN8gLLAcftbj i450ZpXnNLH4TUKouFWb N1GzuM8sJyJyFWLkMZHl S4TswLXpCEymG583UBho WkB0AYVragPwV4Pt QYJupFlnJfT9p0M8Ry1H i1EtulclACT0MMexWDHt FbA0FaFsQxY0V2YfWvm5 DDWymDqkZW7mB7Xk LUDpxnzkbvvugSN9ZYTc KUFkvT69qEJxQAsvRe5t t6A7x428JZMwNQXkzD13 Ko1gcKcaTLQcmSBE aA4zgtirm8svehfkFaQp NEWiGLo3ESy6NHVhjGnq FlVaPRN6QbW4EGV9zCUo hO9raWwvxtkssA1r Oyc+A67noN4iBNJ6XJY2 faowNOAbmsHbGK79QB90 X0NlSwqyvJBcfRL+PGRp faPioVdnYP3kQrBm i0lak3BnVXocG0DdCCPt EIwaTfq0CBQtDAX7hIX7 qK7bWKIlVTguz4J7tNS0 P4TwgpUmga7em1mp HEVvZIsaH99ynGFfs6H6 UUUohML3DEEpqPhxChHt dS57Lcg+AEEzqHbpw4Hh Ktncf9hdg6wrhAb5 IjMwJSIgdmFsaWduPSJ0 r1CfLg72D68kGRnuWSLe VVSuALOrVWVqbHqssz6v mV9dQa5+PGNvbCB3 jUP0tD7rDKTkStG1JWqj H309OdKueCWyUtlvm1to k0priVg6IdZbSSUgqyAw eOfxWKQ1a1JrRe01 T13hKYtlIDNcLMDmXXIg YGLxaAhfhf5qrA5hZf1+ GC1vv5fwje75tL74bWH+ LJBjQND2gHleWDba KMJbbL8bBDdlVjY4SQVh ChPqoQ38kLYkPCtgOn7q mWgdpVnqJP3xBSJqjzfp y210LeCuf2uaRYLi kSTwAMboEJG1O85qu4V5 CBFyOFXbWEX9mAY3kU2e bGlnbjogbGVmdDsgdmVy qJpgJRxmMGhvW001 IHRvcDsnPlBhdGllbnQg KzWhYNz8V2EbCrq3ASUq yUrvXA5uuRCiWTioMi1y kXdyjBwbNS4mWULn oxmue068TcFks0eaWCJj mZIkYDmaEEB7Z14jg8P4 CRCqKWKaLCR6zMX4kX7q bGlnbjogbGVmdDsg nyOgoEryMWapVEquO119 IHRvcDsnPkJpcnRoIERh kDL7OQ81KH10vEAik8W8 sOK6F9VwBOQmvncf bpaalMS3NJJgBYFvvO29 Ox0euGxaAo6xRQSfQFQ0 MKUhoWLhC7YosD4eZfZd CAIuXSCaN7HbwHHl OFghX837GVxkVwO7HZSp qvGeI5JfCUQnmRurRdX0 b5S2By6US6J9UO63YE58 jTFpb2F0vLA6X1Ux WAKxgwmyvgxxqDQ0LUZd LEGwuR68Yr3vlMuqIt6p YHYeRTQ5ZXTonFXoB0Ao mI9rPuWrWSTlVBOw C9OzoRQuCPcsG471CLfj GvN4ZVKtzeTtG4NlBJHz aBkkClT1q1A5Wi9LHLs6 UD62WI39dONwm4W9 sET6U9KfXQMkdazlaagw nBN0OACyDCHifZ77Hy2t sJmfGy9bRXZdNMU7SOFa gZSfW2PrwM6bSoEc MDWvXPCdJ1QukSIaTHok Q167HBxsYcM3VZKxzxVl M1RjKJRjySwpFlG9l6V2 Mj3UTYWkWL88XZG9 eQS4OX00DI56U3ZmOdxm dGFibGU+PHRhYmxlIHdp ZHRoPScxMDAlJyBzdHls RP4fBy0fGXYoZZOn gYprvRKcNzYif3ycIEMw RRefYI8htAufT1LjoXU4 OEZqg0z9Mb20D57rZ5Ns dXA+LWDwoXX2eZY0 hA5tLwKgZuW6UDttF434 QgNzjTLwWlppc2qqj2qn dYv8DmB7PXHfuxLevBgz SYW1u5UuEt67H70s IHdpZHRoPSIxNSUiIHZh tLzdug6qkV0pPk5+PGNv bQO3nII5zP2mZgUeYbH4 RHrsP879ToAocWXi Zvshz8xgo5oqcHi6WtCd SIPhxjEhvCxuZYW4h4Yj Am48L9SkaYmgz9NbMzk9 nx70vQTkd7P7sBK0 E8FjZHUbymihoJOeaUiy MZ8cZNIxqbbfXEXmkL8p PXDzZ5o4OxPkQzM2GYll H9ZzliG3LKVqgMFy CMkuDOY2A57da2A7UJBw CCFfZFY3cBX6fL4smQeg bjogbGVmdDsgdmVydGlj BAbeAHhbS915GLUm sRoyRJFmkM5jAPEnuXYh aOkmXU6oNXKghtxqWmmS TEJFUlQsIFNIRUxCWSBM JSZLAvI4D6LkNbx0 GZCpkNveUJ7jpBWgYDza Zk1yfOqydSqzWS4jVQIi boorSTRwpV9tPKGcyBGx ePjoIC8uSVWymoiz i570RtPiKFH1AOScqHLh M6EqbQ5cQvSgEENfRREm J0HelIIsEYfnJ072WNty YxY2XAMkflRtL4Yw TTApxLsoCcY2y4S6Cn8a Ml3aZu1sMLMgCZ13EL90 yPQrm9D3kXG7Y6NvNFZa xqbswlnfxQV5MQOt WREfnQ80lDDnIKhnIe6g z4Y5w867TVAcQURqbB95 Qn0foXueVUDukYCMdC8e gaaff2fdanbeRtOb ZKJjHMc0APk3VXJipOwn PgVeBGZ0LtF2CVS6oMNx xO5xsOecsoehjV5gZjr+ DyTmIOEvblQ0H9Lc Meh8QOMvvQrzME4afEBo KEouCd6syYxxhAzfEL0q SFIgvmfaBSYxfU9gMJRo iXYscEelOX7cTDJq hdgyq443CeXnYZM3XWGx bDCqM8XpdW2wLtUhHJMb QJTqD0WciNXoGAfkA272 XSavNoH8DJTsodGx N9AcGIPwmQonTnR6x0L4 Km6PNQ5BAEL0G9AyZaq1 RXIaxJorVX0luQWgZXuv Oy7pqDtanRamFH3x FTQfitreFWJmiK8nOTIu uOHefZoeAI8rQTBzkplc l050AcNyKYZ5LYAhgYWe C9XpaL6mMuYxNETi QKXlG9GomRCxFFgnQ864 JUzaSfH2BGKowdIyM7Sq WIRosZgkQyD8r2D4Ji5C UDwvdGQ+NX40xv40 F6PtAuduDhv1CIJvYEA0 mSC2iJ3hLBWwGPxgy8L1 qBI2J5NuwlUprl3od7xq VWMeMVkrC56ydMGl a0L9BFFloFY9WUUpfEww AoBgtQ63Iue+PGNvbGdy b0QdFxlay5pjk8uznRu6 IjMwJSIgdmFsaWdu LTB6x9WoFw02H42rSUpw ZHRoPSIzMCUiIHZhbGln an5wfK1wFe8+PGNvbCB3 xRD0cX3qJiJmZuL9 GJsfG814LdKawAExDzyx p7yqq0uenNz2KxPxGFIb jkUunAbkOMZ8v2YhIk33 D6XqkDcfi2AmDxl8 xo34cGXiz9Y6jFF8Z3Rw HWRysokhjBWarWgrIP3h NKWffmvsGYMgzN7oHWNn D8x4JyXnTrP2SPfc L4DufyU9TFXjvAZhTNBs kMKPbX0wswhwj5ecdbqo PtCqFHUyUDj9QPb0THCk yZmqXaXyJMA8UnG8 XKK8nYVehW6qjFrhbtoz oL3lFli+NUy8c0hgxQPf UB8yiPG7WK33TS79sUBx h8R4oYR2Z2SgZKBa hedynixjtHH8VLMjQUIe zG51Tb5skZldYt4pZSOd WQP1OBBjdMJuF1MgnT8v YcOqGEBzBEGhB2Ix yTUrOTrhS655BWjdGuG2 WQKulcYzD6MiYXTxfVmu NgZ7y2I6Yu7YFY04CF11 JZ63oHYgr3Z5iBP2 Z4FeWZFivxgzqxxgrOE5 YYUhWAZpjE41Id1jdKud Xv5mQHOfFFR6XUCccXXy L8WohV2aLxLtPYYc NBNvS9KjjOBpUTgqY926 DHprXmE6UPGwmhPrY0Fq SDLpiEbqYiH4b6S1Bu7D Pe33PY81WS08dPAm l3G7aVY4W7ZdCCJyzwoj aeaypXI7FHGwADPygE73 Ix3idNvcWz2lHQYaUJB3 KVNdjDTgD6XuxH2h DvMlRSGtCTQgC6BjsVPi MDltJ367TYsjLbX0XHYk bvIkJ3CsGIRklTlgXpE1 l4E4Bj2RUPbebva7 E9GgIqajnZC+DR39NSLf GC80oLEqsSBob4igqMj9 HuYwTVOxZLH1kTqcXQuj z1UfFIQwA98bgGTy c2U (more content not included)... Normal [facility] C Throaton 06-14-2022 C Throat Ordered by Discern. Normal throat jonny isolated No pathogens isolated Normal [facility] Comment on above: Performed By: #### 1 [id number] #### [facility] (DEFAULT) [address] [place] [address] ED Clinical Summaryon 2022 ED Clinical Summary [facility] ? 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 [employer] Nurse 06/12/2022 16:19:28 Nelson Sharma-C ED PA 06/12/2022 16:22:15 VITALS INFORMATION Vital Sign Triage Latest Temperature Tympanic Temperature Temporal Artery Pulse Rate O2 Sat 98 % 98 % Respiratory Rate Blood Pressure /76 mmHg /76 mmHg MEDICAL INFORMATION Medications Given: Allergy Information: Adhesive Bandage; Zithromax PHYSICIAN DOCUMENTATION DISCHARGE INFORMATION: Discharge Disposition: Home Discharge Location: Home PATIENT EDUCATION INFORMATION Instructions: Cough, Adult, Nful-tn-Pyfa; Pharyngitis, Mzje-rf-Ytia Follow-Up: With: Address: When: None Provider [address] [place] [address] Within 1 week Comments: Please follow-up with your primary care provider, call the office schedule an appointment to be seen in a week or sooner for continued care, you will be notified with your results, please take as Tessalon Perles as prescribed, take bsmv-jlc-ayubmuf ibuprofen and Tylenol as needed for fevers, body aches, or headaches. Drink plenty of water to stay hydrated, and return back to the urgent care center for any worsening symptoms, concerns, or complications. DIAGNOSIS: 1:Pharyngitis; 2:Cough Patient Understands: Yes - Patient/family/careg iver verbalizes understanding of instructions given Comment: Normal [facility] ED Patient Summaryon 023 ED Patient Summary [facility] ? Urgent Care [address] [place] [address] [id number] PATIENT DISCHARGE INSTRUCTIONS Patient Information Name: LIA DESAI Age: 21 Years Date of : 2000 [facility]: [id number] Reason For Visit: UC - Sore Throat; UC - Body Aches; SORE THROAT, COUGH, BODY ACHES Arrival Time: 06/12/2022 16:17:17 Primary Care Physician: Provider, None Attending Physician: Nelson Sharma PA-C Comment: Patient Education With: Address: When: None Provider [address] [place] [address] Within 1 week Comments: Please follow-up with your primary care provider, call the office schedule an appointment to be seen in a week or sooner for continued care, you will be notified with your results, please take as Tessalon Perles as prescribed, take ijwk-wpr-pqnjhid ibuprofen and Tylenol as needed for fevers, [...] these instructions at home: Medicines ? Take obpk-mab-ahlzpvp and prescription medicines only as told by [...] things can cause a cough. ? Take ygib-aql-jrwmeiu and prescription medicines only as told by [...] provider. Document Revised: 05/13/2020 Document Reviewed: 04/13/2019 [employer] Patient Education ? 2021 [employer]. Pharyngitis Pharyngitis is a sore throat (pharynx). [...] Symptoms may (more content not included)... Normal [facility] Strep Aon 06-12-2022 Strep procedure control Pass [facility] Comment on above: Performed By: #### 1 [id number] #### [facility] (DEFAULT) [address] [place] [address] Streptococcus A Negative Normal Negative [facility] Comment on above: Performed By: #### 1 [id number] #### [facility] (DEFAULT) [address] [place] [id number] Urgent Care [facility] 023 Urgent Care Record [facility] ? Urgent Care [address] [place] [address] PATIENT DISCHARGE INSTRUCTIONS Patient Information Name: LIA DESAI Age: 21 Years Date of : 2000 [facility]: [id number] Reason For Visit: UC - Sore Throat; UC - Body Aches; SORE THROAT, COUGH, BODY ACHES Arrival Time: 06/12/2022 16:17:17 Primary Care Physician: Provider, None Attending Physician: Nelson Sharma PA-C Comment: Visit Diagnosis: Diagnoses This Visit Cough (R05.9) Pharyngitis (J02.9) UC - Body Aches ([id number]) UC - Sore Throat ([id number]) If you received any narcotics, sedation, or [...] legal documents With: Address: When: None Provider [address] [id number] Within 1 week Comments: Please follow-up with your primary care provider, call the office schedule an appointment to be seen in a week or sooner for continued care, you will be notified with your results, please take as Tessalon Perles as prescribed, take uqyf-mdc-awjylok ibuprofen and Tylenol as needed for fevers, body aches, or headaches. Drink plenty of water to stay hydrated, and return back to the urgent care center for any worsening symptoms, concerns, or complications. Medication Information: The exam and treatment you received today in the [facility] Care were for an urgent problem and are not intended as complete care. It is important for you to follow up with a doctor, nurse practitioner, or physician?s assistant elementary teacher for ongoing care. If your symptoms [...] so we can reach you if necessary. [facility] has provided you with a complete list of medications post discharge. Please inform your pin drafting machine operator/provider of your visit and for further instruction on these medications. Any specific questions regarding your chronic medications and dosages should be discussed with your primary care physician(s) and/or pharmacist. New Medications [facility] [id number], [place] [id number], [phone] benzonatate (Tessalon Perles 100 mg oral capsule) [...] these instructions at home: Medicines ? Take lghv-iyz-eerkort and prescription medicines only as told by your doctor. (more content not included)... Normal [facility] US PELVIS AND TRANSVAGon US [...] ANGELA SCOTT Date: 2022-06-04 06:57 Normal [facility] US PREG TVon 05-16-2022 US PREG [...] by: CHRISTIAN KATE Date: 2022-05-16 18:15 Normal [facility] HEP B SURFACE ANTIGEN SCREEN on 04-20-2022 HBsAg Screen Negative Normal Negative [facility] Comment on above: Performed By: #### H BSANS #### [facility] [address] [address] [address] Jeronimo Melgar HEPATITIS C VIRUS AB W/ REFL EX QUANTon 04-20-2022 HCV AB <0.1 Normal 0.0-0.9 [facility] Comment on above: Performed By: #### H CVPCRR #### [facility] [address] [address] [address] Jeronimo Melgar Interpretation: Comment Normal [facility] Comment on above: Result Comment: Nega tive Not infected with HCV, unless recent infection is suspected or other evidence exists to indicate HCV infection. Performed By: #### H CVPCRR #### [facility] [address] [place] [address] Dr. Jeronimo Melgar HIV 1 AND 2 WITH REFLEXon HIV Screen 4th Generation wRfx Non-Reactive Normal Non Reactive [facility] Comment on above: Result Comment: HIV Negative HIV-1/HIV-2 antibodies and HIV-1 p24 antigen were NOT detected. There is no laboratory evidence of HIV infection. Performed By: #### H IV12 #### [facility] [address] [place] [address] Dr. Jeronimo Melgar RPR QUANTon 04-20-2022 Rapid Plasma Reagin, Quant Non-Reactive Normal NonRea<1:1 [facility] Comment on above: Result Comment: Plea se Note: This test does not meet current guidelines for screening and diagnosis of syphilis. This test is intended for following treatment response in patients being treated for syphilis infection. To screen for syphilis infection, a reflex cascade that includes both RPR and a treponema-specific assay should be utilized, such as Treponema pallidum (Syphilis) Screening [place] (950729) or Rapid Plasma Reagin (RPR) Test With Reflex to Quantitative RPR and Confirmatory Treponema pallidum Antibodies (962079). Performed By: #### R PRQ #### [facility] [address] [place] [address] Dr. Jeronimo Melgar RUBELLA AB IGGon 04-20-2022 Rubella Antibodies, IgG 1.85 index Normal Immune >0.99 [facility] Comment on above: Result Comment: Non- immune <0.90 Equivocal 0.90 - 0.99 Immune >0.99 Performed By: #### B OX #### [facility] [address] [place] [address] Dr. Jeronimo Melgar BOX TEST SENT OUTon 04-19-19 23 SENT TO REF LAB 04/19/2022 Normal [facility] Comment on above: Performed By: #### B OX #### [facility] [address] [place] [address] Dr. Jeronimo Melgar CBC AUTO DIFFon 04-19-2022 BASO # 0.1 103/ul Normal 0.0-0.1 [facility] Comment on above: Performed By: #### B OX #### [facility] [address] [place] [address] Dr. Jeronimo Melgar Basophils/100 WBC (Bld) 0.5 % Normal 0.2-2.0 [facility] Comment on above: Performed By: #### B OX #### [facility] [address] [place] [address] Dr. Jeronimo Melgar EO # 0.1 103/ul Normal 0.0-0.7 [facility] Comment on above: Performed By: #### B OX #### [facility] [address] [place] [address] Dr. Jeronimo Melgar Eosinophils/100 WBC (Bld) 0.7 % Critically low 0.9-7.0 [facility] Comment on above: Performed By: #### B OX #### [facility] [address] [place] [address] Dr. Jeronimo Melgar Erythrocyte distribution width (RBC) [Ratio] 12.8 % Normal 11.0-15.0 [facility] Comment on above: Performed By: #### B OX #### [facility] [address] [place] [address] Dr. Jeronimo Melgar Hematocrit (Bld) [Volume fraction] 43.7 % Normal 36.0-48.0 [facility] Comment on above: Performed By: #### B OX #### [facility] [address] [place] [address] Dr. Jeronimo Melgar Hemoglobin (Bld) [Mass/Vol] 13.1 g/dL Normal 12.0-16.0 [facility] Comment on above: Performed By: #### B OX #### [facility] [address] [place] [address] Dr. Jeronimo Melgar IG # 0.02 10e3/ul Normal 0.00-0.03 [facility] Comment on above: Performed By: #### B OX #### [facility] [address] [place] [address] Dr. Jeronimo Melgar IG % 0.2 % Normal 0.0-0.5 [facility] Comment on above: Performed By: #### B OX #### [facility] [address] [place] [address] Dr. Jeronimo Melgar LYMPH # 2.6 103/ul Normal 1.2-3.8 [facility] Comment on above: Performed By: #### B OX #### [facility] [address] [place] [address] Dr. Jeronimo Melgar Lymphocytes/100 WBC (Bld) 27.3 % Normal 20.5-60.0 [facility] Comment on above: Performed By: #### B OX #### [facility] [address] [place] [address] Dr. Jeronimo Melgar MANUAL DIFF REQ NO Normal [facility] Comment on above: Performed By: #### B OX #### [facility] [address] [place] [address] Dr. Jeronimo Melgar MCH (RBC) [Entitic mass] 27.7 pg Normal 26.7-34.0 [facility] Comment on above: Performed By: #### B OX #### [facility] [address] [place] [address] Dr. Jeronimo Melgar MCHC (RBC) [Mass/Vol] 30.0 g/dL Normal 29.9-35.2 [facility] Comment on above: Performed By: #### B OX #### [facility] [address] [place] [address] Dr. Jeronimo Melgar MCV (RBC) [Entitic vol] 92.4 fL Normal 81.0-99.0 [facility] Comment on above: Performed By: #### B OX #### [facility] [address] [place] [address] Dr. Jeronimo Melgar MONO # 0.8 103/ul Normal 0.3-0.8 [facility] Comment on above: Performed By: #### B OX #### [facility] [address] [place] [address] Dr. Jeronimo Melgar Monocytes/100 WBC (Bld) 7.8 % Normal 1.7-12.0 [facility] Comment on above: Performed By: #### B OX #### [facility] [address] [place] [address] Dr. Jeronimo Melgar NEUT # 6.1 103/ul Normal 1.4-6.5 [facility] Comment on above: Performed By: #### B OX #### [facility] [address] [place] [address] Dr. Jeronimo Melgar Neutrophils/100 WBC (Bld) 63.5 % Normal 43.0-75.0 [facility] Comment on above: Performed By: #### B OX #### [facility] [address] [place] [address] Dr. Jeronimo Melgar Platelet mean volume (Bld) [Entitic vol] 10.7 fL Normal 9.5-13.5 [facility] Comment on above: Performed By: #### B OX #### [facility] [address] [place] [address] Dr. Jeronimo Melgar PLT 399 103/ul Normal 150-450 [facility] Comment on above: Performed By: #### B OX #### [facility] [address] [place] [address] Dr. Jeronimo Melgar RBC 4.73 106/ul Normal 4.20-5.40 [facility] Comment on above: Performed By: #### B OX #### [facility] [address] [place] [address] Dr. Jeronimo Melgar WBC 9.6 103/ul Normal 4.0-11.0 [facility] Comment on above: Performed By: #### B OX #### [facility] [address] [place] [address] Dr. Jeronimo Melgar CULTURE URINEon 04-19-2022 CULTURE URINE Culture Observations: LIGHT GROWTH OF MIXED GENITAL JONNY. NO POTENTIAL PATHOGENS SEEN. Normal [facility] Comment on above: Performed By: #### B OX #### [facility] [address] [place] [address] Dr. Jeronimo Melgar DRUG SCREEN RAPID (URINE)on 04-19-2022 AMP Negative Normal NEGATIVE [facility] Comment on above: Performed By: #### H IV12 #### [facility] [address] [place] [address] Dr. Jeronimo Melgar BAR Negative Normal NEGATIVE [facility] Comment on above: Performed By: #### H IV12 #### [facility] [address] [place] [address] Dr. Jeronimo Melgar BUP Negative Normal NEGATIVE [facility] Comment on above: Performed By: #### H IV12 #### [facility] [address] [place] [address] Dr. Jeronimo Melgar BZO Negative Normal NEGATIVE [facility] Comment on above: Performed By: #### H IV12 #### [facility] [address] [place] [address] Dr. Jeronimo Melgar KRISTINA Negative Normal NEGATIVE [facility] Comment on above: Performed By: #### H IV12 #### [facility] [address] [place] [address] Dr. Jeronimo Melgar CUT-OFFS SEE BELOW Normal [facility] Comment on above: Result Comment: AMP [...] ng/mL Performed By: #### H IV12 #### [facility] [address] [place] [address] Dr. Jeronimo Melgar DRUG CUT HEADER DRUG CLASS TEST SYSTEM CUT-OFF CONCENTRATIONS ARE FOLLOWS: Normal [facility] Comment on above: Performed By: #### H IV12 #### [facility] [address] [place] [address] Dr. Jeronimo Melgar mAMP Negative Normal NEGATIVE [facility] Comment on above: Performed By: #### H IV12 #### [facility] [address] [address] [address] Jeronimo Melgar MTD Negative Normal NEGATIVE [facility] Comment on above: Performed By: #### H IV12 #### [facility] [address] [address] [address] Jeronimo Melgar OPI Negative Normal NEGATIVE [facility] Comment on above: Performed By: #### H IV12 #### [facility] [address] [address] [address] Jeronimo Melgar OXY Negative Normal NEGATIVE [facility] Comment on above: Performed By: #### H IV12 #### [facility] [address] [address] [address] Jeronimo Melgar PCP Negative Normal NEGATIVE [facility] Comment on above: Performed By: #### H IV12 #### [facility] [address] [address] [address] Jeronimo Melgar PPX Negative Normal NEGATIVE [facility] Comment on above: Performed By: #### H IV12 #### [facility] [address] [address] [address] Jeronimo Melgar TCA Negative Normal NEGATIVE [facility] Comment on above: Performed By: #### H IV12 #### [facility] [address] [address] [address] Jeronimo Melgar THC Negative Normal NEGATIVE [facility] Comment on above: Performed By: #### H IV12 #### [facility] [address] [place] [address] Dr. Jeronimo Melgar GLYCOHEMOGLOBIN A1Con 2022 ADA RECOMMENDATION SEE BELOW Normal [facility] Comment on above: Result Comment: ADA RECOMMENDED LIMIT 4.0 - 6.0 ADA THERAPEUTIC TARGET < 7.0 ACTION SUGGESTED > 7.0 Performed By: #### A 1C #### [facility] [address] [place] [address] Dr. Jeronimo Melgar Glucose [Mass/Vol] 100 mg/dL Normal [facility] Comment on above: Performed By: #### A 1C #### [facility] [address] [place] [address] Dr. Jeronimo Melgar HbA1c (Bld) [Mass fraction] 5.1 % Normal 4.5-6.2 [facility] Comment on above: Performed By: #### A 1C #### [facility] [address] [place] [address] Dr. Jeronimo Melgar TYPE AND SCREENon 04-19-2022 TYPE AND SCREEN Negative Normal [facility] Comment on above: Performed By: #### B OX #### [facility] [address] [place] [address] Dr. Jeronimo Melgar CBC AUTO DIFFon 04-02-2022 BASO # 0.0 103/ul Normal 0.0-0.1 [facility] Comment on above: Performed By: #### C BC #### [facility] [address] [place] [address] Dr. Jeronimo Melgar Basophils/100 WBC (Bld) 0.3 % Normal 0.2-2.0 [facility] Comment on above: Performed By: #### C BC #### [facility] [address] [place] [address] Dr. Jeronimo Melgar EO # 0.0 103/ul Normal 0.0-0.7 [facility] Comment on above: Performed By: #### C BC #### [facility] [address] [place] [address] Dr. Jeronimo Melgar Eosinophils/100 WBC (Bld) 0.2 % Critically low 0.9-7.0 [facility] Comment on above: Performed By: #### C BC #### [facility] [address] [place] [address] Dr. Jeronimo Melgar Erythrocyte distribution width (RBC) [Ratio] 12.9 % Normal 11.0-15.0 [facility] Comment on above: Performed By: #### C BC #### [facility] [address] [place] [address] Dr. Jeronimo Melgar Hematocrit (Bld) [Volume fraction] 37.5 % Normal 36.0-48.0 [facility] Comment on above: Performed By: #### C BC #### [facility] [address] [place] [address] Dr. Jeronimo Melgar Hemoglobin (Bld) [Mass/Vol] 12.4 g/dL Normal 12.0-16.0 [facility] Comment on above: Performed By: #### C BC #### [facility] [address] [place] [address] Dr. Jeronimo Melgar IG # 0.05 10e3/ul Critically high 0.00-0.03 [facility] Comment on above: Performed By: #### C BC #### [facility] [address] [place] [address] Dr. Jeronimo Melgar IG % 0.3 % Normal 0.0-0.5 [facility] Comment on above: Performed By: #### C BC #### [facility] Laboratory [address] [place] [address] Dr. Jeronimo Melgar LYMPH # 2.0 103/ul Normal 1.2-3.8 [facility] Comment on above: Performed By: #### C BC #### [facility] [address] [place] [address] Dr. Jeronimo Melgar Lymphocytes/100 WBC (Bld) 14.1 % Critically low 20.5-60.0 [facility] Comment on above: Performed By: #### C BC #### [facility] [address] [place] [address] Dr. Jeronimo Melgar MANUAL DIFF REQ NO Normal [facility] Comment on above: Performed By: #### C BC #### [facility] [address] [place] [address] Dr. Jeronimo Melgar MCH (RBC) [Entitic mass] 27.9 pg Normal 26.7-34.0 [facility] Comment on above: Performed By: #### C BC #### [facility] [address] [place] [address] Dr. Jeronimo Melgar MCHC (RBC) [Mass/Vol] 33.1 g/dL Normal 29.9-35.2 [facility] Comment on above: Performed By: #### C BC #### [facility] [address] [address] [address] Jeronimo Melgar MCV (RBC) [Entitic vol] 84.3 fL Normal 81.0-99.0 [facility] Comment on above: Performed By: #### C BC #### [facility] [address] [address] [address] Jeronimo Melgar MONO # 0.6 103/ul Normal 0.3-0.8 [facility] Comment on above: Performed By: #### C BC #### [facility] [address] [address] [address] Jeronimo Melgar Monocytes/100 WBC (Bld) 4.0 % Normal 1.7-12.0 [facility] Comment on above: Performed By: #### C BC #### [facility] [address] [place] [address] Dr. Jeronimo Melgar NEUT # 11.7 103/ul Critically high 1.4-6.[address] [facility] Comment on above: Performed By: #### C BC #### [facility] [address] [place] [address] Dr. Jeronimo Melgar Neutrophils/100 WBC (Bld) 81.1 % Critically high 43.0-75.0 [facility] Comment on above: Performed By: #### C BC #### [facility] [address] [place] [address] Dr. Jeronimo Melgar Platelet mean volume (Bld) [Entitic vol] 10.2 fL Normal 9.5-13.5 [facility] Comment on above: Performed By: #### C BC #### [facility] [address] [place] [address] Dr. Jeronimo Melgar PLT 420 103/ul Normal 150-450 [facility] Comment on above: Performed By: #### C BC #### [facility] [address] [place] [address] Dr. Jeronimo Melgar RBC 4.45 106/ul Normal 4.20-5.40 [facility] Comment on above: Performed By: #### C BC #### [facility] [address] [place] [address] Dr. Jeronimo Melgar WBC 14.4 103/ul Critically high 4.0-11.[address] [facility] Comment on above: Performed By: #### C BC #### [facility] [address] [address] [address] Jeronimo Melgra ER URINE PROFILEon 2 Bilirubin Ql (U) Negative Normal NEGATIVE The [facility] Comment on above: Performed By: #### B OX #### [facility] [address] [address] [address] Jeronimo Melgar Clarity (U) CLEAR Normal CLEAR [facility] Comment on above: Performed By: #### B OX #### [facility] [address] [place] [address] Dr. Jeronimo Melgar Color (U) YELLOW Normal YELLOW [facility] Comment on above: Performed By: #### B OX #### [facility] [address] [place] [address] Dr. Jeronimo FLORES A micrscopic examination will be performed if indicated. Normal [facility] Comment on above: Performed By: #### B OX #### [facility] [address] [address] [address] Jeronimo Melgar Glucose Ql (U) Negative Normal NEGATIVE The [facility] Comment on above: Performed By: #### B OX #### [facility] [address] [place] [address] Dr. Jeronimo Melgar Hemoglobin Ql (U) Negative Normal NEGATIVE The [facility] Comment on above: Performed By: #### B OX #### [facility] [address] [place] [address] Dr. Jeronimo Melgar Ketones Ql (U) >=80 Abnormal NEGATIVE The [facility] Comment on above: Performed By: #### B OX #### [facility] [address] [place] [address] Dr. Jeronimo Melgar LEUKOCYTES Negative Normal NEGATIVE [facility] Comment on above: Performed By: #### B OX #### [facility] [address] [address] [address] Jeronimo Melgar Nitrite Ql (U) Negative Normal NEGATIVE The [facility] Comment on above: Performed By: #### B OX #### [facility] [address] [place] [address] Dr. Jeronimo Melgar pH (U) 7.0 [pH] Normal 5-9 [facility] Comment on above: Performed By: #### B OX #### [facility] [address] [place] [address] Dr. Jeronimo Melgar SPEC GRAVITY 1.020 Normal 1.005-<=1.025 The [facility] Comment on above: Performed By: #### B OX #### [facility] [address] [place] [address] Dr. Jeronimo Melgar UA PROTEIN TRACE Normal NEGATIVE/ TRACE [facility] Comment on above: Performed By: #### B OX #### [facility] [address] [place] [address] Dr. Jeronimo Melgar UR MICRO IND NOT INDICATED Normal The [facility] Comment on above: Performed By: #### B OX #### [facility] [address] [place] [address] Dr. Jeronimo Melgar Urobilinogen Qn (U) 1.0 {Pepito'U}/dL Normal 0.2 - 1. 0 [facility] Comment on above: Performed By: #### B OX #### [facility] [address] [place] [address] Dr. Jeronimo Melgar PROF CHEM 8 (BAS METB)on Anion gap [Moles/Vol] 12.7 mmol/L Normal [facility] Comment on above: Performed By: #### B MP #### [facility] [address] [place] [address] Dr. Jeronimo Melgar Calcium [Mass/Vol] 9.1 mg/dL Normal 8.5-10.1 [facility] Comment on above: Performed By: #### B MP #### [facility] [address] [place] [address] Dr. Jeronimo Melgar Chloride [Moles/Vol] 103 mmol/L Normal 98-107 [facility] Comment on above: Performed By: #### B MP #### [facility] [address] [address] [address] Jeronimo Melgar CO2 [Moles/Vol] 23.9 mmol/L Normal 21.0-32.[address] [facility] Comment on above: Performed By: #### B MP #### [facility] [address] [address] [address] Jeronimo Melgar Creatinine [Mass/Vol] 0.78 mg/dL Normal 0.55-1.02 [facility] Comment on above: Performed By: #### B MP #### [facility] [address] [address] [address] Jeronimo Melgar EGFR-AF GERMAN >60 Normal >=[address] [facility] Comment on above: Performed By: #### B MP #### [facility] [address] [address] [address] Jeronimo Melgar EGFR-NON AF GERMAN >60 Normal >=60 [facility] Comment on above: Performed By: #### B MP #### [facility] [address] [address] [address] Jeronimo Melgar Glucose [Mass/Vol] 155 mg/dL Critically high 74-[address] [facility] Comment on above: Performed By: #### B MP #### [facility] [address] [address] [address] Jeronimo Melgar Potassium [Moles/Vol] 3.6 mmol/L Normal 3.5-5.1 [facility] Comment on above: Performed By: #### B MP #### [facility] [address] [address] [address] Jeronimo Melgar Sodium [Moles/Vol] 136 mmol/L Normal 136-145 [facility] Comment on above: Performed By: #### B MP #### [facility] [address] [address] [address] Jeronimo Melgar Urea nitrogen [Mass/Vol] 7.0 mg/dL Normal 7.0-18.0 [facility] Comment on above: Performed By: #### B MP #### [facility] [address] [address] [address] Jeronimo Melgar Urea nitrogen/Creatinine [Mass ratio] 9.0 mg/mg Normal [facility] Comment on above: Performed By: #### B MP #### [facility] [address] [address] [address] Jeronimo Melgar US PREG TVon 03-28-2022 [...] ANGELA SCOTT Date: 2022-03-28 16:32 Normal [facility] US PELVIS AND TRANSVAGon US PELVIS [...] CHRISTIAN KATE Date: 2021-10-17 16:35 Normal [facility] CHLAMYDIA/GONOCOCCUS MILY (SW AB/URINE/PAPon 10-14-2021 Chlamydia trachomatis, MILY Positive Abnormal Negative [facility] Comment on above: Result Comment: . Performed By: #### C T/NGNA #### [facility] [address] [address] [address] Jeronimo Melgar Neisseria gonorrhoeae, MILY Negative Normal Negative [facility] Comment on above: Performed By: #### C T/NGNA #### [facility] [address] [address] [address] Jeronimo Melgar VAGINITIS/VAGINOSIS DNA PROB Obed 10-13-2021 Lesa species Negative Normal Negative The [facility] Comment on above: Performed By: #### V AGINT #### [facility] [address] [address] [address] Jeronimo Melgar Gardnerella vaginalis Negative Normal Negative [facility] Comment on above: Performed By: #### V AGINT #### [facility] [address] [address] [address] Jeronimo Melgar Trichomonas vaginalis Negative Normal Negative [facility] Comment on above: Performed By: #### V AGINT #### [facility] [address] [place] [address] Dr. Jeronimo Melgar XR foot LT min 3V*on 022 XR foot LT min 3V* [facility] [place] [address] XRay Report Signed Patient: Lia Desai MR#: [id number] : 2000 Acct:[id number] Age/Sex: 20 / F ADM Date: 07/18/21 Loc: ER Room: Type: [facility] ER Attending Dr: Ordering Provider: Oneil Ricci APRN Date of Service: 07/18/21 XR/XR foot LT min 3V*: Extremity Injury, Lower ([id number]) XR/XR ankle LT min 3V*: Extremity Injury, [...] Brewer Jr., M.D.07/18/2021 6:15 PM Dictation Location: [id number] Transcribed By: [facility] 07/18/211814 Dictated By: Bijan Brewer Jr, MD 07/18/211812 Signed By: 07/18/211814 [facility] XR knee RT 4V*on 05-15-2021 XR knee RT 4V* [facility] [place] [address] [place] [address] XRay Report Signed Patient: Lia Desai MR#: [id number] : 2000 Acct:[id number] Age/Sex: 20 / F ADM Date: 05/15/21 Loc: ER Room: Type: [facility] ER Attending Dr: Ordering Provider: Yovani Valle [...] Ana Juan M.D.05/15/2021 8:11 PM Dictation Location: [place] [address] Transcribed By: [facility] 05/15/212010 Dictated By: Ana Juan II, MD 05/15/212008 Signed By: 05/15/212010 [facility] Vital Signs Date Time Vital Sign Value Performing Clinician Faci lity 07-18-2021 16:56-0400 Body height 167.64 cm [facility] 07-18-2021 16:56-0400 Body mass index (BMI) [Percentile] Per age and sex 98.9 % [facility] 07-18-2021 16:56-0400 Body mass index (BMI) [Ratio] 44.3 kg/m2 [facility] 07-18-2021 16:56-0400 Body temperature 98.3 [degF] [facility] 07-18-2021 16:56-0400 Body weight 124.6 kg [facility] 07-18-2021 16:56-0400 Diastolic blood pressure 108 mm[Hg] [facility] 07-18-2021 16:56-0400 Heart rate 80 /min [facility] 07-18-2021 16:56-0400 Respiratory rate 18 /min [facility] 07-18-2021 16:56-0400 Systolic blood pressure 162 mm[Hg] [facility] 05-15-2021 19:47-0500 Body height 167.64 cm [facility] 05-15-2021 19:47-0500 Body mass index (BMI) [Percentile] Per age and sex 98.9 % [facility] 05-15-2021 19:47-0500 Body mass index (BMI) [Ratio] 43.7 kg/m2 [facility] 05-15-2021 19:47-0500 Body temperature 98.8 [degF] [facility] 05-15-2021 19:47-0500 Body weight 122.95 kg [facility] 05-15-2021 19:47-0500 Diastolic blood pressure 65 mm[Hg] [facility] 05-15-2021 19:47-0500 Heart rate 75 /min [facility] 05-15-2021 19:47-0500 Respiratory rate 16 /min [facility] 05-15-2021 19:47-0500 SaO2% (BldA) [Mass fraction] 100 % [facility] 05-15-2021 19:47-0500 Systolic blood pressure 144 mm[Hg] [facility] Encounters Encounter Date Encounter Type Care Provider Facility Start: 11-21-2023 End: 11-21-2023 ambulatory ROBERT MARRERO Not Available Start: 11-13-2023 End: 11-13-2023 ambulatory ROBERT JANES Not Available Start: 10-28-2023 End: 10-28-2023 ambulatory DAPHNIE TAYO Not Available Start: 10-14-2023 End: 10-14-2023 ambulatory ROBERT JANES Not Available Start: 10-01-2023 End: 10-01-2023 ambulatory ROBERT JANES Not Available Start: 09-17-2023 End: 09-17-2023 ambulatory ROBERT JANES Not Available Start: 09-04-2023 End: 09-04-2023 [facility] Start: 09-04-2023 End: 09-04-2023 Emergency department patient visit [facility] Start: 08-26-2023 End: 08-26-2023 ambulatory ROBERT JANES Not Available Start: 07-30-2023 End: 07-30-2023 ambulatory RAUL HAMMOND [facility] Start: 07-29-2023 End: 07-29-2023 ambulatory ROBERT JANES Not Available Start: 07-11-2023 End: 07-11-2023 Emergency department patient visit [facility] Start: 07-05-2023 End: 07-05-2023 Emergency department patient visit [facility] Start: 07-01-2023 End: 07-01-2023 ambulatory DAPHNIE TAYO Not Available Start: 06-18-2023 End: 06-18-2023 ambulatory ROBERT JANES Not Available Start: 06-03-2023 End: 06-03-2023 ambulatory ROBERT JANES Not Available Start: 05-26-2023 End: 05-26-2023 Emergency department patient visit [facility] Facility:[facility] Start: 05-17-2023 Clinisync Result Encounter Robert Janes DO Work Phone: [facility] Unsolicited Start: 05-17-2023 Clinisync Result Encounter Robert Janes DO Work Phone: [facility] Unsolicited Start: 05-15-2023 End: 05-15-2023 Emergency department patient visit Mamie Moore Facility:[facility] Start: 05-14-2023 Chart abstracting Robert Triplettzio DO Work Phone: [facility] Start: 05-07-2023 Documentation procedure Leah Hernandez RN [facility] Certified Nurse Disease Management Nurse - [place] Start: 05-02-2023 End: 05-02-2023 ambulatory ROBERT JANES Not Available Start: 04-19-2023 Telephone encounter Leah Hernandez RN [facility] Certified Nurse Disease Management Nurse - [place] Start: 04-17-2023 Telephone encounter Leah Hernandez RN [facility] Certified Nurse Disease Management Nurse - [place] Start: 04-15-2023 End: 04-15-2023 Emergency department patient visit Yassine Retanadavid Facility:[facility] Start: 04-12-2023 End: 04-12-2023 ambulatory Oneil MILLS Facility:[facility] Start: 04-05-2023 Orders Only Leah Hernandez RN [facility] Certified Nurse Disease Management Nurse - [place] Comment on above: Nausea and vomiting during (Primary Dx) Start: 03-01-2023 End: 03-01-2023 Emergency department patient visit Tom Smith Facility:[facility] Start: 02-26-2023 End: 02-26-2023 ambulatory Errol Martin PAC Facility:[facility] Start: 02-14-2023 End: 02-14-2023 ambulatory DORA MILLS Facility:[facility] Start: 11-15-2022 End: 11-15-2022 Emergency department patient visit None Provider Facility:[facility] Start: 08-25-2022 End: 08-26-2022 ambulatory Alaina Matta CNM Facility:[facility] Start: 08-11-2022 End: 08-11-2022 Emergency department patient visit Adamaris Jaeger PA-C Facility:[facility] Start: 08-08-2022 End: 08-09-[address] BALDOMERO ELLER . Facility: Start: 06-12-2022 End: 06-12-2022 ambulatory None Provider Facility:[facility] Start: 06-02-2022 End: 06-03-[address] BALDOMERO ELLER . Facility:[facility] Start: 05-18-2022 Encounter for other preprocedural examination DR BALDOMERO ELLER . [facility] Start: 05-17-2022 End: 05-17-[address] BALDOMERO [...] DR ANA LEDESMA Facility:[facility] Start: 03-29-2022 ambulatory [facility] Facility:[facility] Start: 03-28-2022 End: 03-29-[address] BALDOMERO ELLER . Facility:[facility] Start: 10-17-2021 End: 10-18-[address] BALDOMERO ELLER . Facility:[facility] Start: 10-12-2021 End: 10-12-[address] BALDOMERO ELLER . Facility:[facility] Start: 07-18-2021 End: 07-18-2021 Emergency department patient visit [facility] Start: 05-15-2021 End: 05-15-2021 Emergency department patient visit [facility] Procedures Date Procedure Procedure Detail Performing Clinician Start: 05-17-2023 ALL CBC WITH AUTO DIFF Robert Marrero DO Work Phone: Start: 05-15-2021 X-ray of right knee Plan of Treatment Date Care Activity Detail Author Start: 05-15-2028 DTaP,Tdap and Td Vaccines (2 - Td or Tdap) DTaP,Tdap and Td Vaccines (2 - Td or Tdap) [facility] Start: 03-05-2024 Adult BMI Screening Adult BMI Screen ing [facility] Start: 03-05-2024 Tobacco Screening Tobacco Screening [facility] Start: 09-26-2023 Screening for Chlamy driss trachomatis Chlamydia Screening [facility] Start: 06-03-2023 End: 06-03-2023 Patient encounter procedure 06/03/2023 2:10 PM EST Routine [facility] [address] [place] [address] Robert Marrero, DO [address] [place] [address] [facility] Start: 04-17-2023 End: 04-17-2023 ambulatory 04/17/2023 8:30 AM EST Initial [facility] Certified Nurse Disease Management Nurse - [place] [address] [address] [address] [place] [address] [facility] Certified Nurse Disease Management Nurse - [place] Start: 12-07-2022 Influenza vaccination Influenza Vacc ine [facility] Start: 2022 Screening for malign ant neoplasm of cervix Pap Smear [facility] Start: 07-18-2021 X-ray of left ankle XR ankle LT min 3V* [facility] Start: 07-18-2021 X-ray of left foot XR foot LT min 3V * [facility] Start: 10-08-2019 Adult BMI Follow Up Plan Adult BMI Follow Up Plan [facility] Start: 2013 Depression Screening Depression Scre ening [facility] Patient Education [facility] Work Phone: Patient referral [facility] Work Phone: Payers Date Payer Category Payer Medicaid [id number] 2001 Unknown [id number] 2.16.84 0.1.168251.3.579.2.593 2001 Unknown [id number] 2.16.84 0.1.542366.3.579.2.593 2001 Unknown [id number] 2.16.84 0.1.988044.3.579.2.593 2001 Unknown [id number] 2.16.84 0.1.379095.3.579.2.593 2001 Unknown [id number] 2.16.84 0.1.428012.3.579.2.593 2001 Unknown [id number] 2.16.84 0.1.685119.3.579.2.593 2001 Unknown [id number] 2.16.84 0.1.532030.3.579.2.593 2001 Unknown [id number] 2.16.84 0.1.891006.3.579.2.593 2001 Unknown [id number] 2.16.84 0.1.147654.3.579.2.593 2001 Unknown [id number] 2.16.84 0.1.144353.3.579.2.593 2001 Unknown [id number] 2.16.84 0.1.170322.3.579.2.593 2001 Unknown [id number] 2.16.8 40.1.516093.3.579.2.718 2001 Unknown [id number] 2.16.8 40.1.037991.3.579.2.718 2001 Unknown [id number] 2.16.8 40.1.152804.3.579.2.718 2001 Unknown [id number] 2.16.8 40.1.084368.3.579.2.718 2001 Unknown [id number] 2.16.8 40.1.765167.3.579.2.718 2001 Unknown [id number] 2.16.8 40.1.386445.3.579.2.718 2001 Unknown [id number] 2.16.8 40.1.784740.3.579.2.718 2001 Unknown [id number] 2.16.8 40.1.410484.3.579.2.718 2001 Unknown [id number] 2.16.8 40.1.029590.3.579.2.718 2001 Unknown [id number] 2.16.8 40.1.896231.3.579.2.8 2001 Unknown [id number] 2.16.8 40.1.800096.3.579.2.718 2001 Unknown [id number] 2.16.8 40.1.614806.3.579.2.6 2001 Unknown [id number] 2.16.8 40.1.003232.3.579.2.6 2001 Unknown [id number] 2.16.8 40.1.740329.3.579.2.1285 2001 Unknown [id number] 2.16.8 40.1.154192.3.579.2.6 2001 Unknown [id number] 2.16.8 40.1.558959.3.579.2.6 2001 Unknown [id number] 2.16.84 0.1.879921.3.579.2.9 2001 Unknown [id number] 2.16.84 0.1.388200.3.579.2.1258 2001 Unknown [id number] 2.16.84 0.1.572658.3.579.2.1258 2001 Unknown [id number] 2.16.84 0.1.778167.3.579.2.1258 2001 Unknown [id number] 2.16.84 0.1.384481.3.579.2.9 2001 Unknown [id number] 2.16.84 0.1.099871.3.579.2.1258 2001 Unknown [id number] 2.16.84 0.1.415427.3.579.2.1259 2001 Unknown [id number] 2.16.84 0.1.953079.3.579.2.1259 2001 Unknown [id number] 2.16.84 0.1.126107.3.579.2.1259 2001 Unknown [id number] 2.16.84 0.1.354626.3.579.2.9 2001 Unknown [id number] 2.16.84 0.1.962063.3.579.2.1259 2001 Unknown [id number] 2.16.84 0.1.940164.3.579.2.1259 1959 Unknown [id number] Self-pay Self Pay [id number] Social History Date Type Detail Facility Start: 07-18-2021 End: 05-14-2023 Tobacco smoking status NHIS Never smoked tobacco (finding) [facility] Start: 2000 Sex Assigned At Female [facility] History of tobacco use Passive smoker Pro [facility] Start: 08-01-2022 Tobacco use and exposure Smokeless tobacco non-user [facility] Start: 03-05-2023 Alcohol intake Ex-drinker (finding) [facility] Start: 03-05-2023 End: 05-14-2023 History of Social function [facility] Start: 03-05-2023 End: 05-14-2023 Tobacco use panel [facility] Housing Instability Unknown [facility] Start: 08-14-2022 Alcohol Comment social [facility] Start: 2000 Sex Assigned At Not on file [facility] Start: 05-14-2023 Alcohol intake Lifetime non-drinker (finding) [facility] Start: 03-20-2023 [facility] Start: 05-01-2023 Gender identity Identifies as female gender (finding) [facility] Start: 05-01-2023 Sexual orientation Heterosexual (finding) [facility] Clinical Notes 06-12-2022 to 05-26-2023 Leah [...] Keep all follow-up visits. Medicines ? Take czwz-wan-fnlmnek and prescription medicines only as told by [...] be an em (more content not included)... [facility] 05-15-2023 Note Education Materials Obstetrics [...] uri tea. ? Taking prescription medicine or adkj-glu-kcgbixr medicine as told by your health care [...] or sour. These include lemonade, uri prabhakar, lemon?[place] soda, ice water, and sparkling water. Things [...] food. The s (more content not included)... [facility] 05-07-2023 History of Presen t illness Narrative Letter sent to patient via [facility] and also to her My Chart regarding her missed OB intake appointment and also her MICHAEL for her Chlamydia. documented in this encounter [facility] 04-19-2023 Miscellaneous Notes Called patient to reschedule her IOB intake visit. No answer. Left message to call office to reschedule her appointment. documented in this encounter [facility] 04-19-2023 Telephone encounter Note Called patient to reschedule her IOB intake visit. No answer. Left message to call office to reschedule her appointment[facility] [facility] Miscellaneous Notes Patient called for her OB intake per phone. No answer. Left message to call office. documented in this encounter [facility] 04-17-2023 Telephone encounter Note Patient called for her OB intake per phone. No answer. Left message to call office. [facility] 04-15-2023 Note Education Materials Gastroenterology [...] ? Low-calorie sports drinks. ? Eat bland, bnct-dv-eubntk foods in small amounts as you are able, such as: ? Bananas. ? Applesauce. ? Rice. ? Low-fat (lean) meats. ? [place]. ? Crackers. ? Avoid drinking fluids that have a lot of sugar or caffeine in them. This includes energy drinks, sports drinks, and soda. ? Avoid alcohol. ? Avoid spicy or fatty foods. General instructions ? Take wzxk-zdb-bvwwwpk and prescription medicines only as told by your doctor. ? Drink enough fluid to keep your pee (urine) pale yellow. ? Wash your hands often with soap and water for at least 20 seconds. If you cannot use soap and water, use hand chain dyer. ? Make sure that everyone in your [...] doctor about eating and drinking. ? Take xbhe-jwg-varzoke and prescription medicines only as told by your doctor. ? Contact your doctor if your symptoms get worse or you have new symptoms. ? Keep all follow-up visits. This information is not intended to replace advice given to you by your health care provider. Make sure you discuss any questions you have with your health care provider. Document Revised: 09/29/2021 Document Reviewed: 09/29/2021 [employer] Patient Education ? 2022 [employer]. [facility] 04-12-2023 Note Patient Education Ma [...] these instructions at home: Medicines ? Take kpob-csx-fwtjlgo and prescription medicines only as told by your health care provider. Do not use any prescription, ixpi-oej-nkhvsgt, or herbal medicines for morning sickness without [...] fluids throughout the day. ? Try uri prabahkar made with real uri, uri tea made [...] provider. Document Revised: 11/07/2020 Document Reviewed: 10/17/2020 Elsevier Patient Education ? 2022 [employer]. [facility] 03-01-2023 Note Education Materials Pulmonary [...] Follow these instructions at home: ? Take sglp-ism-wgpjarb and prescription medicines only as told by [...] and water are not available, use hand chain dyer. ? Avoid contact with people who have [...] is easier to cough up. ? Take qzcu-nxj-hfzwpkc an (more content not included)... [facility] 02-26-2023 Note Patient Education Ma [...] to help relieve symptoms, such as: ? Byvb-olb-vjoyaeu cold medicines. ? Cough suppressants. Coughing is [...] other clear broths. General instructions ? Take krwg-lhi-lustaxd and prescription medicines only as told by [...] and water are not available, use hand chain dyer. ? Avoid touching your mouth, face, eyes, [...] These symptoms may (more content not included)... [facility] 02-14-2023 Note Patient Education Ma [...] elastic wrap to support your hand. ? Oesr-zvh-xqcozpq medicines to control pain. Follow these instructions [...] or lying down. General instructions ? Take oexj-qcr-pcivnlx and prescription medicines only as told by [...] provider. Document Revised: 07/13/2021 Document Reviewed: 07/13/2021 [employer] Patient Education ? 2022 [employer] How to Use Cold Therapy Cold [...] on your pr (more content not included)... [facility] 11-15-2022 Note Education Materials Orthopedics [...] by your health care provider. Stretching and arknv-ux-okbpfc exercises These exercises warm up your muscles [...] standing, keep y (more content not included)... [facility] 08-11-2022 Note Education Materials Obstetrics [...] these instructions at home: Medicines ? Take gdky-uxe-adsmrjb and prescription medicines only as told by [...] Where to find more information ? [employer]: acog.org ? [place] Department of Health and Human Services Office of Women's Health: hrsa.gov/vnpuno-watbgf-vcptfl Contact a doctor if: ? You have [...] ? Text the Crisis Text Line at 052581. Summary ? A miscarriage is the loss [...] provider. Document Revised: 09/23/2020 Document Reviewed: 09/23/2020 [employer] Patient Education ? [facility] Patient Education Ma [...] these instructions at home: Medicines ? Take xtdx-yaw-uhzpcjk and prescription medicines only as told by [...] things can cause a cough. ? Take rdnc-exo-avadueh and prescription medicines only as told by [...] provider. Document Revised: 05/13/2020 Document Reviewed: 04/13/2019 [employer] Patient Education ? 2021 [employer]. Infectious Disease Pharyngitis Pharyngitis is a sore [...] these instructions at home: Medicines ? Take rpxi-cdy-lxopaqq and prescription medicines only as told by your doctor. ? If you were prescribed an antibiotic medicine, take it as told by your doctor. Do not stop taking the antibiotic even if you start to feel better. ? Use throat loze (more content not included)... 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 Relationship Specialty Start Date End Date [facility], [facility] [address], [place] PCP - General Family Medicine 08/11/18 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 Relationship Specialty Start Date End Date [facility] [address], [place] PCP - General Family Medicine 08/11/18 Side Show 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 Relationship Specialty Start Date End Date [facility], [facility] [address], [place] PCP - General Family Medicine 08/11/18 Goals (unrecognized section and content) Goals may be documented in a n alternate sectionNot on filedocumented as of this encounterNot on filedocumented as of this encounterNot on filedocumented as of this encounterNot on filedocumented as of this encounter INFORMATION SOURCE (unrecogn ized section and content) DATE CREATED AUTHOR 07/27/2021 [facility] DATE CREATED AUTHOR AUTHOR'S ORGANIZ ATION 08/16/2022 [facility] DATE CREATED AUTHOR AUTHOR'S ORGANIZ ATION 06/08/2023 [facility] DATE CREATED AUTHOR AUTHOR'S ORGANIZ ATION 09/05/2023 [facility] DATE CREATED AUTHOR AUTHOR'S ORGANIZ ATION 11/22/2023 [facility] dical Specialists [facility] FOR RECORDS PERTAINING TO PATIENTS WHO [...] BE BASED ON THE PRIMARY CLINICAL RECORDS. [employer] provides no warranty or guarantee of the accuracy or completeness of information in this document.
== END 2023-11-25 11:27 | disposition home or self-care (01) ==
LOC: NOMS 11:26
PROVIDERS: Visit Provider Obstetrics & Gynecology
DX: O36.60X0 Maternal care for excessive fetal growth, unspecified trimester, not applicable or unspecified (principal); Z3A.37 37 weeks gestation of pregnancy
CPT/HCPCS: 76816

== ENCOUNTER 2023-12-04 05:03 | Inpatient (IN) | payer OTHER, SELFPAY ==
[2023-12-04] VITALS (69 sets, daily range): BP systolic 89–162; BP diastolic 44–88; PULSE 67–111; TEMP 35.6–37
--- OUTSIDE RECORDS SUMMARY | 2023-12-04 05:07 | XMS_ITS | CCD ---
Author Organization [facility] Care Team Providers Care Highway Administrative Engineer Name Role Phone NON STAFF Primary Care Provider LAURA Kraft Emergency Provider NICOLE Ricci Emergency Provider DAPHNIE ., DR ALEXANDRE Attending Unavailabl e KARASIK ., DR ALEXANDRE Admitting Unavailabl [facility] Unava ilable KARASIK ., DR ALEXANDRE Consulting Unavailabl e LAVINIA, DR CHRISTIAN Doyle Consulting Unavailable KARASIK ., DR ALEXANDRE Consulting Unavailabl e KARASIK ., DR ALEXANDRE Attending Unavailabl e [facility] Unava ilable KARASIK ., DR ALEXANDRE Admitting Unavailabl e ANGELA SCOTT Consulting Unavailable DINA, DR ANA Dennis Attending Unavailable DINA, DR ANA Dennis Admitting [facility] [place] DINA, DR ANA Dennis Consulting Unavailable KILO ., MR CUADRA Consulting Unavailable KARASIK ., DR ALEXANDRE Attending Unavailabl e [facility] Unava ilable KARASIK ., DR ALEXANDRE Admitting Unavailabl e KARASIK ., DR ALEXANDRE Attending Unavailabl e [facility] Unava ilable KARASIK ., DR ALEXANDRE Admitting Unavailabl e KARASIK ., DR ALEXANDRE Consulting Unavailabl e JOANNE HUDSON Consulting Unavailable GAVIN ATKINS Consulting Unavailable [facility] Unava ilable KARASIK ., DR [...] DR ALEXANDRE Attending Unavailabl e [facility] Primary Care Unava ilable KARASIK ., DR ALEXANDRE Admitting Unavailabl e KARASIK ., DR ALEXANDRE Consulting Unavailabl e ZIEBER, ANGELA Dennis Consulting Unavailable KARASIK ., DR ALEXANDRE Attending Unavailabl e KARASIK ., DR ALEXANDRE Admitting Unavailabl e [facility] Primary Care Unava ilable KARASIK ., DR ALEXANDRE Consulting Unavailabl e KARASIK ., DR ALEXANDRE Consulting Unavailabl e KARASIK ., DR ALEXANDRE Attending Unavailabl e [facility] Primary [facility] Unava ilable KARASIK ., DR ALEXANDRE Admitting Unavailabl e WEST, DR CHRISTIAN Doyle Consulting Unavailable REQUEST, DR AMBER LISTED Consulting [facility] Primary Care Provider Unavailable Primary [...] Primary Care Unavailable Anusha Palomo Admitting Unavailable Anuhsa Palomo Attending Unavailable Provider, None Primary Care Unavailable Nelson Sharma Admitting Unavailable SharmaNelson platt Attending Unavailable SERVICES, [facility] Unava ilable KENDRA EDWARDS Attending Unavailable SERVICES, [facility] Unava ilable DARELL SYMONE L Attending Unavailable RAUL HAMMOND Admitting Unavailable RAUL HAMMOND Attending Unavailable SERVICES, [facility] Unava ilable SERVICES, [facility] Care Unava ilable FRIES, ZEKE S Admitting Unavailable FRIES, ZEKE S Attending Unavailable SERVICES, [facility] Unava ilable JANES, ROBERT Attending Unavailable JANES, [...] Date of Onset Reaction(s) Facility (1 source) [facility] Drug Allergy [facility] (2 sources) Azithromycin; Translations: [AZITHROMYCIN] Drug Allergy 2 [facility] (5 sources) Adhesive agent; Translations: [ADHESIVE] Propensity to adverse reactions to drug 3 [facility] (6 sources) Azithromycin Drug Allergy 2 [facility] (2 sources) Macrolides And Ketolides Drug Allergy 4 Unknown [facility] Healthcare (2 sources) Wound Dressing Adhesive Drug Allergy 4 [facility] (1 source) Adhesive bandage; Translations: [Adhesive Bandage] Propensity to adverse reactions (disorder) [facility] Repository (1 source) Azithromycin; Translations: [Zithromax] Drug Allergy [facility] Repository (1 source) metroNIDAZOLE; Translations: [METRONIDAZOLE] Drug Allergy 4 [facility] Rep[facility] Medications Current Medications Medication Drug Class(es) Dates Sig (Normalized) Sig (Original) [id number] 200 actuat albuterol 0.09 mg/actuat metered dose [...] 09-04-2023 Bilirubin Ql (U) Negative Normal NEG [facility] Comment on above: Performed By: #### C HILLARY CANCINO, 3040-3 #### [facility] ([id number]) [address] [place] [address] 04547 BLOOD/HGB Negative Normal NEG [facility] Comment on above: Performed By: #### C HILLARY CANCINO, 3040-3 #### [facility] ([id number]) [address] [place] [address] 72611 Color (U) YELLOW Normal YELLOW [facility] Comment on above: Performed By: #### C HILLARY CANCINO, 3040-3 #### [facility] ([id number]) [address] [place] [address] 36388 Glucose Ql (U) Negative Normal NEG [facility] Comment on above: Performed By: #### C BARAK, CMP, 0-3 #### [facility] ([id number]) [address] [place] [address] 31802 Ketones Ql (U) Negative Normal NEG [facility] Comment on above: Performed By: #### Shakeel CANCINO, CMP, 0-3 #### [facility] ([id number]) [address] [place] [address] 48672 Leukocyte esterase Test strip Ql (U) Trace Abnormal NEG [facility] Comment on above: Performed By: #### Shakeel CANCINO, CMP, 3039-3 #### [facility] ([id number]) [address] [place] [address] 19738 Nitrite Ql (U) Negative Normal NEG [facility] Comment on above: Performed By: #### Shakeel CANCINO, CMP, 3039-3 #### [facility] ([id number]) [address] [place] [address] 99361 pH (U) 6.5 [pH] Normal 5.0-8.5 [facility] Comment on above: Performed By: #### Shakeel CANCINO, CMP, 0-3 #### [facility] ([id number]) [address] [place] [address] 77573 Protein Ql (U) Negative Normal NEG [facility] Comment on above: Performed By: #### Shakeel CANCINO, CMP, 0-3 #### [facility] ([id number]) [address] [place] [address] 52551 R.B.CELLS 0 /hpf Normal 0-5 [facility] Comment on above: Performed By: #### Shakeel BCA, CMP, 0-3 #### [facility] ([id number]) [address] [place] [address], [place] [address] Specific gravity (U) [Rel density] 1.020 Normal 1.003-1.035 [facility] Comment on above: Performed By: #### Shakeel CANCINO [facility], 3040-3 #### [facility] ([id number]) [address] [place] [address] 70956 SQUAMOUS EPITHELIUM 5 /hpf Normal 0-5 [facility] Comment on above: Performed By: #### Shakeel CANCINO [facility], 3039-3 #### [facility] ([id number]) [address] [place] [address] 45588 TURBIDITY HAZY Abnormal CLEAR [facility] Comment on above: Performed By: #### Shakeel CANCINO [facility], 3039-3 #### [facility] ([id number]) [address] [place] [address] 99838 Urobilinogen Qn (U) 1.0 {Pepito'U}/dL Normal <1.1 [facility] Comment on above: Performed By: #### Shakeel CANCINO [facility], 3039-3 #### [facility] ([id number]) [address] [place] [address] 72618 W.B.CELLS 2 /hpf Normal 0-5 [facility] Comment on above: Performed By: #### Shakeel CANCINO [facility], 0-3 #### [facility] ([id number]) [address] [place] [address] 20239 COMPLETE BLOOD COUNTon 07-29 Erythrocyte distribution width (RBC) [Ratio] 13.5 % Normal 11.5-15.0 [facility] Comment on above: Performed By: #### Shakeel CASTELLANOS CMP #### [facility] ([id number]) [address] [place] [address] 37033 Hematocrit (Bld) [Volume fraction] 32.1 % Low 35-47 [facility] Comment on above: Performed By: #### C JASMIN, CMP #### [facility] ([id number]) [address] [place] [address] 76584 Hemoglobin (Bld) [Mass/Vol] 11.0 g/dL Low 11.7-15.5 [facility] Comment on above: Performed By: #### C BC, CMP #### [facility] ([id number]) [address] [place] [address] 37725 MCH (RBC) [Entitic mass] 28.8 pg Normal 27-34 [facility] Comment on above: Performed By: #### C BC, CMP #### [facility] ([id number]) [address] [place] [address] 08654 MCHC (RBC) [Mass/Vol] 34.3 g/dL Normal 32-36 [facility] Comment on above: Performed By: #### C BC, CMP #### [facility] ([id number]) [address] [place] [address] 13743 MCV (RBC) [Entitic vol] 84 fL Normal 80-100 [facility] Comment on above: Performed By: #### C BC, CMP #### [facility] ([id number]) [address] [place] [address] 12974 Platelet mean volume (Bld) [Entitic vol] 8.9 fL Normal 7-12 [facility] Comment on above: Performed By: #### C BC, CMP #### [facility] ([id number]) [address] [place] [address] 88015 Platelets (Bld) [#/Vol] 354 10*3/uL Normal 150-450 [facility] Comment on above: Performed By: #### C BC, CMP #### [facility] ([id number]) [address] [place] [address] 90991 RBC COUNT 3.82 X10E12/L Normal 3.80-5.20 [facility] Comment on above: Performed By: #### C BC, CMP #### [facility] ([id number]) [address] [place] [address] 94704 WBC (Bld) [#/Vol] 12.0 10*3/uL High 4.0-11.0 [facility] Comment on above: Performed By: #### C BC, CMP #### [facility] ([id number]) [address] [place] [address] 16348 COMPREHENSIVE METABOLIC PANE Alex 07-30-2023 Albumin [Mass/Vol] 3.0 g/dL Low 3.2-5.3 [facility] Comment on above: Performed By: #### C BC, CMP #### [facility] ([id number]) [address] [place] [address] 67521 ALP [Catalytic activity/Vol] 67 U/L Normal 39-130 [facility] Comment on above: Performed By: #### C BC, CMP #### [facility] ([id number]) [address] [place] [address] 53057 ALT [Catalytic activity/Vol] 10 U/L Normal 0-31 [facility] Comment on above: Performed By: #### C BC, CMP #### [facility] ([id number]) [address] [place] [address] 48092 Anion gap [Moles/Vol] 7 mmol/L Normal 5-15 [facility] Comment on above: Performed By: #### C BC, CMP #### [facility] ([id number]) [address] [place] [address] 45998 AST [Catalytic activity/Vol] 12 U/L Normal 0-41 [facility] Comment on above: Performed By: #### C BC, CMP #### [facility] ([id number]) [address] [place] [address] [place] [address] Bilirubin [Mass/Vol] 0.5 mg/dL Normal 0.3-1.2 [facility] Comment on above: Performed By: #### C BC, CMP #### [facility] ([id number]) [address] [place] [address] 52097 Calcium [Mass/Vol] 8.1 mg/dL Low 8.5-10.5 [facility] Comment on above: Performed By: #### C BC, CMP #### [facility] ([id number]) [address] [place] [address] 07671 Chloride [Moles/Vol] 108 mmol/L Normal 98-109 [facility] Comment on above: Performed By: #### C BC, CMP #### [facility] ([id number]) [address] [place] [address] 32722 CO2 [Moles/Vol] 19 mmol/L Low 22-32 [facility] Comment on above: Performed By: #### C BC, CMP #### [facility] ([id number]) [address] [place] [address] 79485 Creatinine [Mass/Vol] 0.52 mg/dL Normal 0.40-1.00 [facility] Comment on above: Result Comment: METH OD TRACEABLE TO IDMS STANDARD Performed By: #### C BC, CMP #### [facility] ([id number]) [address] [place] [address] 78987 eGFR (CKD-EPI) NON-RACE DEPENDENT >90 Normal >59 [facility] Comment on above: Result Comment: Reported eGFR is based on the CKD-EPI 2020 equation that does not use a race coefficient. Performed By: #### C BC, CMP #### [facility] ([id number]) [address] [place] [address] 51235 Glucose [Mass/Vol] 79 mg/dL Normal 65-99 [facility] Comment on above: Performed By: #### C BC, CMP #### [facility] ([id number]) [address] [place] [address] 61438 Potassium [Moles/Vol] 3.9 mmol/L Normal 3.5-5.0 [facility] Comment on above: Performed By: #### C BC, CMP #### [facility] ([id number]) [address] [place] [address] 82799 Protein [Mass/Vol] 6.1 g/dL Normal 6.0-8.0 [facility] Comment on above: Performed By: #### C BC, CMP #### [facility] ([id number]) [address] [place] [address] 89830 Sodium [Moles/Vol] 134 mmol/L Normal 134-146 [facility] Comment on above: Performed By: #### C BC, CMP #### [facility] ([id number]) [address] [place] [address] 03199 Urea nitrogen [Mass/Vol] 6 mg/dL Normal 5-23 [facility] Comment on above: Performed By: #### C BC, CMP #### [facility] ([id number]) [address] [place] [address] 38836 DRUG SCREEN, URINEon 024 AMPHETAMINE/METHAMP Negative Normal NEG [facility] Comment on above: Result Comment: AMPH /METH screening cut off = 1000 ng/mL Performed By: #### D FLOWER #### [facility] ([id number]) [address] [place] [address] 32929 BARBITURATES Negative Normal NEG [facility] Comment on above: Result Comment: Deirdre iturates screening cut off value = 200 ng/mL Performed By: #### D FLOWER #### [facility] ([id number]) [address] [place] [address] 67756 BENZODIAZEPINES Negative Normal NEG [facility] Comment on above: Result Comment: Vinny odiazepines screening cut off value = 200 ng/mL Performed By: #### D FLOWER #### [facility] ([id number]) [address] [place] [address] 01436 CANNABINOIDS Negative Normal NEG [facility] Comment on above: Result Comment: Lavenr abinoids/THC screening cut off value = 50 ng/mL Performed By: #### D FLOWER #### [facility] ([id number]) [address] [place] [address] 74754 COCAINE METABOLITE Negative Normal NEG [facility] Comment on above: Result Comment: Coca ine screening cut off value = 300 ng/mL Performed By: #### D FLOWER #### [facility] ([id number]) [address] [place] [address] 67996 ECSTASY Negative Normal [facility] Comment on above: Result Comment: Ecst asy screening cut off value = 500 ng/mL This report is intended for use in clinical monitoring or management of patients. Performed By: #### D FLOWER #### [facility] ([id number]) [address] [place] [address] 82591 METHADONE Negative Normal [facility] Comment on above: Result Comment: Meth adone screening cut off value = 300 ng/mL. Performed By: #### D FLOWER #### [facility] ([id number]) [address] [place] [address] [place] [address] OPIATES Negative Normal NEG [facility] Comment on above: Result Comment: Opia bernadette screening cut off value = 300 ng/mL NOTE: This test is used for the detection of codeine, hydrocodone (>1000 ng/mL), morphine and hydromorphone (>900 ng/mL) in urine. Performed By: #### D FLOWER #### [facility] ([id number]) [address] [place] [address] 98488 OXYCODONE Negative Normal NEG [facility] Comment on above: Result Comment: Oxyc odone screening cut off value = 300 ng/mL NOTE: This test is used for the detection of oxycodone and oxymorphone in urine. Performed By: #### D FLOWER #### [facility] ([id number]) [address] [place] [address] 15876 PHENCYCLIDINE Negative Normal NEG [facility] Comment on above: Result Comment: Phen cyclidine screening cut off value = 25 ng/mL Performed By: #### D FLOWER #### [facility] ([id number]) [address] [place] [address] 32229 URINALYSISon 07-30-2023 Bilirubin Ql (U) Negative Normal NEG [facility] Comment on above: Performed By: #### C BCA, CMP, 3040-3 #### [facility] ([id number]) [address] [place] [address] [place] [address] BLOOD/HGB Negative Normal NEG [facility] Comment on above: Performed By: #### C BCA, CMP, 3040-3 #### [facility] ([id number]) [address] [place] [address] 43956 Color (U) YELLOW Normal YELLOW [facility] Comment on above: Performed By: #### C BCA, CMP, 3040-3 #### [facility] ([id number]) [address] [place] [address] [place] [address] Glucose Ql (U) Negative Normal NEG [facility] Comment on above: Performed By: #### C BCA, CMP, 3040-3 #### [facility] ([id number]) [address] [place] [address] 53592 Ketones Ql (U) Negative Normal NEG [facility] Comment on above: Performed By: #### C BCA, CMP, 3040-3 #### [facility] ([id number]) [address] [place] [address] 58003 Leukocyte esterase Test strip Ql (U) Negative Normal NEG [facility] Comment on above: Performed By: #### Shakeel CANCINO CMP, 3039-3 #### [facility] ([id number]) [address] [place] [address] 54760 Nitrite Ql (U) Negative Normal NEG [facility] Comment on above: Performed By: #### Shakeel CANCINO CMP, 3039-3 #### [facility] ([id number]) [address] [place] [address] 10590 pH (U) 7.0 [pH] Normal 5.0-8.5 [facility] Comment on above: Performed By: #### Shakeel CANCINO CMP, 3039-3 #### [facility] ([id number]) [address] [place] [address] 80662 Protein Ql (U) Negative Normal NEG [facility] Comment on above: Performed By: #### Shakeel CANCINO CMP, 3 #### [facility] ([id number]) [address] [place] [address] 78481 R.B.CELLS 0 to 1 Normal 0-5 [facility] Comment on above: Performed By: #### Shakeel CANCINO CMP, 3039-3 #### [facility] ([id number]) [address] [place] [address] 15409 Specific gravity (U) [Rel density] 1.020 Normal 1.003-1.035 [facility] Comment on above: Performed By: #### Shakeel CANCINO CMP, 3039-3 #### [facility] ([id number]) [address] [place] [address] 48404 SQUAMOUS EPITHELIUM 2 /hpf Normal 0-5 [facility] Comment on above: Performed By: #### Shakeel CANCINO CMP, 3039-3 #### [facility] ([id number]) [address] [place] [address] 60064 TURBIDITY CLOUDY Abnormal CLEAR [facility] Comment on above: Performed By: #### Shakeel CANCINO CMP, 3039-3 #### [facility] ([id number]) [address] [place] [address] 83263 Urobilinogen Qn (U) 0.2 {Pepito'U}/dL Normal <1.1 [facility] Comment on above: Performed By: #### Shakeel CANCINO CMP, 3039-3 #### [facility] ([id number]) [address] [place] [address] 68168 W.B.CELLS 1 /hpf Normal 0-5 [facility] Comment on above: Performed By: #### Shakeel CANCINO CMP, 3039-3 #### [facility] ([id number]) [address] [place] [address] 22808 CBC AND AUTO DIFFon 07-11-19 24 ABSOLUTE BASOPHIL 0.0 X10E9/L Normal 0.0-0.2 [facility] Comment on above: Performed By: #### Shakeel CANCINO CMP, 3 #### [facility] ([id number]) [address] [place] [address] 93557 ABSOLUTE NEUTROPHIL 9.7 X10E9/L High 1.5-6.6 [facility] Comment on above: Performed By: #### Shakeel CANCINO, CMP, 3039-3 #### [facility] ([id number]) [address] [place] [address] 76803 Basophils/100 WBC (Bld) 0.2 % Normal [facility] Comment on above: Performed By: #### Shakeel CANCINO, CMP, 3039-3 #### [facility] ([id number]) [address] [place] [address] 63428 Eosinophils (Bld) [#/Vol] 0.1 10*3/uL Normal 0.0-0.4 [facility] Comment on above: Performed By: #### Shakeel CANCINO CMP, 3 #### [facility] ([id number]) [address] [place] [address] 92458 Eosinophils/100 WBC (Bld) 0.5 % Normal [facility] Comment on above: Performed By: #### Shakeel CANCINO CMP, 3039-06 #### [facility] ([id number]) [address] [place] [address] 11234 Erythrocyte distribution width (RBC) [Ratio] 13.4 % Normal 11.5-15.0 [facility] Comment on above: Performed By: #### Shakeel CANCINO CMP, 3039-06 #### [facility] ([id number]) [address] [place] [address] 76587 Hematocrit (Bld) [Volume fraction] 37.1 % Normal 35-47 [facility] Comment on above: Performed By: #### Shakeel CANCINO CMP, 3039-06 #### [facility] ([id number]) [address] [place] [address] 86241 Hemoglobin (Bld) [Mass/Vol] 12.6 g/dL Normal 11.7-15.5 [facility] Comment on above: Performed By: #### Shakeel CANCINO CMP, 3039-06 #### [facility] ([id number]) [address] [place] [address] 75013 Lymphocytes (Bld) [#/Vol] 3.1 10*3/uL Normal 1.0-3.5 [facility] Comment on above: Performed By: #### Shakeel CANCINO CMP, 3 #### [facility] ([id number]) [address] [place] [address] 94444 Lymphocytes/100 WBC (Bld) 22.3 % Normal [facility] Comment on above: Performed By: #### C BARAK CMP, 3039- #### [facility] ([id number]) [address] [place] [address] 41959 MCH (RBC) [Entitic mass] 28.3 pg Normal 27-34 [facility] Comment on above: Performed By: #### Shakeel CANCINO, CMP, 3039-3 #### [facility] ([id number]) [address] [place] [address] 40659 MCHC (RBC) [Mass/Vol] 33.9 g/dL Normal 32-36 [facility] Comment on above: Performed By: #### Shakeel CANCINO, CMP, 3 #### [facility] ([id number]) [address] [place] [address] 33157 MCV (RBC) [Entitic vol] 84 fL Normal 80-100 [facility] Comment on above: Performed By: #### Shakeel CANCINO, CMP, 3039-06 #### [facility] ([id number]) [address] [place] [address] 22913 Monocytes (Bld) [#/Vol] 1.1 10*3/uL High 0-0.9 [facility] Comment on above: Performed By: #### Shakeel CANCINO, CMP, 3039-06 #### [facility] ([id number]) [address] [place] [address] 21121 Monocytes/100 WBC (Bld) 8.0 % Normal [facility] Comment on above: Performed By: #### Shakeel BCA, CMP, 3039-06 #### [facility] ([id number]) [address] [place] [address] 32293 Neutrophils/100 WBC (Bld) 69.0 % Normal [facility] Comment on above: Performed By: #### Shakeel BCA, CMP, 3039-3 #### [facility] ([id number]) [address] [place] [address] 42014 Platelet mean volume (Bld) [Entitic vol] 8.3 fL Normal 7-12 [facility] Comment on above: Performed By: #### Shakeel CANCINO CMP, 3039-3 #### [facility] ([id number]) [address] [place] [address] 99543 Platelets (Bld) [#/Vol] 380 10*3/uL Normal 150-450 [facility] Comment on above: Performed By: #### C BARAK, CMP, 3039-3 #### [facility] ([id number]) [address] [place] [address] 42985 RBC COUNT 4.43 X10E12/L Normal 3.80-5.20 [facility] Comment on above: Performed By: #### Shakeel CANCINO CMP, 3039-3 #### [facility] ([id number]) [address] [place] [address] 22148 WBC (Bld) [#/Vol] 14.0 10*3/uL High 4.0-11.0 [facility] Comment on above: Performed By: #### Shakeel CANCINO, CMP, 3 #### [facility] ([id number]) [address] [place] [address] 86993 COMPREHENSIVE METABOLIC PANE Alex 07-11-2023 Albumin [Mass/Vol] 3.4 g/dL Normal 3.2-5.3 [facility] Comment on above: Performed By: #### Shakeel CANCINO, CMP, 3039-3 #### [facility] ([id number]) [address] [place] [address] 79644 ALP [Catalytic activity/Vol] 65 U/L Normal 39-130 [facility] Comment on above: Performed By: #### Shakeel CANCINO, CMP, 3039-3 #### [facility] ([id number]) [address] [place] [address] ALT [Catalytic activity/Vol] 13 U/L Normal 0-31 [facility] Comment on above: Performed By: #### C HILLARY CANCINO, 3039-3 #### [facility] ([id number]) [address] [place] [address] 85172 Anion gap [Moles/Vol] 4 mmol/L Low 5-15 [facility] Comment on above: Performed By: #### C HILLARY CANCINO, 3039-06 #### [facility] ([id number]) [address] [place] [address] 53781 AST [Catalytic activity/Vol] 14 U/L Normal 0-41 [facility] Comment on above: Performed By: #### C HILLARY CANCINO, 3 #### [facility] ([id number]) [address] [place] [address] 22492 Bilirubin [Mass/Vol] 0.5 mg/dL Normal 0.3-1.2 [facility] Comment on above: Performed By: #### Shakeel CANCINO CMP, 3 #### [facility] ([id number]) [address] [place] [address] 68093 Calcium [Mass/Vol] 8.2 mg/dL Low 8.5-10.5 [facility] Comment on above: Performed By: #### C HILLARY CANCINO, 3039-06 #### [facility] ([id number]) [address] [place] [address] 47054 Chloride [Moles/Vol] 107 mmol/L Normal 98-109 [facility] Comment on above: Performed By: #### Shakele CANCINO CMP, 3 #### [facility] ([id number]) [address] [place] [address] 23211 CO2 [Moles/Vol] 20 mmol/L Low 22-32 [facility] Comment on above: Performed By: #### C HILLARY CANCINO, 3 #### [facility] ([id number]) [address] [place] [address] 08178 Creatinine [Mass/Vol] 0.59 mg/dL Normal 0.40-1.00 [facility] Comment on above: Result Comment: METH OD TRACEABLE TO IDMS STANDARD Performed By: #### C HILLARY CANCINO, 3 #### [facility] ([id number]) [address] [place] [address] 46626 eGFR (CKD-EPI) NON-RACE DEPENDENT >90 Normal >59 [facility] Comment on above: Result Comment: Reported eGFR is based on the CKD-EPI 2020 equation that does not use a race coefficient. Performed By: #### C HILLARY CANCINO, 3039-06 #### [facility] ([id number]) [address] [place] [address] 68606 Glucose [Mass/Vol] 91 mg/dL Normal 65-99 [facility] Comment on above: Performed By: #### C BARAK [facility], 3039-06 #### [facility] ([id number]) [address] [place] [address] 84080 Potassium [Moles/Vol] 3.9 mmol/L Normal 3.5-5.0 [facility] Comment on above: Performed By: #### C HILLARY CANCINO, 3039-06 #### [facility] ([id number]) [address] [place] [address] 51034 Protein [Mass/Vol] 7.1 g/dL Normal 6.0-8.0 [facility] Comment on above: Performed By: #### C HILLARY CANCINO, 3039-06 #### [facility] ([id number]) [address] [place] [address] 40317 Sodium [Moles/Vol] 131 mmol/L Low 134-146 [facility] Comment on above: Performed By: #### C HILLARY CANCINO, 3040-3 #### [facility] ([id number]) [address] [place] [address] Urea nitrogen [Mass/Vol] 5 mg/dL Normal 5-23 [facility] Comment on above: Performed By: #### C BARAK, [facility], 3040-3 #### [facility] ([id number]) [address] [place] [address] LIPASEon 07-11-2023 Lipase [Catalytic activity/Vol] 28 U/L Normal 17-40 [facility] Comment on above: Performed By: #### C BARAK, [facility], 3040-3 #### [facility] ([id number]) [address] [place] [address] SARS/FLU A+B/RSV by NAAT/Mol ecularon 07-11-2023 SARS/FLU [...] operators who are performing tests using either GeneDelphi DX or GeneTitansan systems and is limited to laboratories that [...] repeat. Fact Sheet for Healthcare Providers: https://www.fda.gov/ media/619457/downloa d Fact Sheet for Patients: https://www.fda.gov/ media/989223/downloa d Normal [facility] Comment on above: Performed By: #### C OVFLR #### [facility] ([id number]) [address] [place] [address] 39117 URINE CULTUREon 07-11-2023 Bacteria identified Cx Nom (U) CULTURE RESULTS 10-50,000 ORGANISMS/mL NORMAL UROGENITAL JONNY Normal [facility] Comment on above: Performed By: #### 6 30-4 #### [facility] ([id number]) [address] [place] [address], [address] [place] [address] URN MACROSCOPIC NURon 2023 BILIRUBIN NEHA Negative Normal NEG [facility] Comment on above: Performed By: #### N UM #### [facility] ([id number]) [address] [place] [address] 31141 BLOOD/HGB NEHA Negative Normal NEG [facility] Comment on above: Performed By: #### N UM #### [facility] ([id number]) [address] [place] [address] 15875 GLUCOSE NEHA Negative Normal NEG [facility] Comment on above: Performed By: #### N UM #### [facility] ([id number]) [address] [place] [address] 03457 KETONES NEHA 40 mg/dL Abnormal NEG [facility] Comment on above: Performed By: #### N UM #### [facility] ([id number]) [address] [place] [address] 58416 LEUKOCYTE ESTERASE NEHA Negative Normal NEG [facility] Comment on above: Performed By: #### N UM #### [facility] ([id number]) [address] [place] [address] 95353 NITRITE NEHA Negative Normal NEG [facility] Comment on above: Performed By: #### N UM #### [facility] ([id number]) [address] [place] [address] 06419 PH NEHA 8.0 Normal 5.0-8.5 [facility] Comment on above: Performed By: #### N UM #### [facility] ([id number]) [address] [place] [address] 80822 PROTEIN NEHA Trace Abnormal NEG [facility] Comment on above: Performed By: #### N UM #### [facility] ([id number]) [address] [place] [address] 47093 SPECIFIC GRAVITY NEHA 1.020 Normal 1.003-1.035 [facility] Comment on above: Performed By: #### N UM #### [facility] ([id number]) [address] [place] [address] 58958 UROBILINOGEN NEHA 1.0 eu/dL Normal <1.1 [facility] Comment on above: Performed By: #### N UM #### [facility] ([id number]) [address] [place] [address] 91107 URN MACROSCOPIC NURon 2023 BILIRUBIN NEHA Negative Normal NEG [facility] Comment on above: Performed By: #### N UM #### [facility] ([id number]) [address] [place] [address] [place] [address] BLOOD/HGB NEHA Negative Normal NEG [facility] Comment on above: Performed By: #### N UM #### [facility] ([id number]) [address] [place] [address] [place] [address] GLUCOSE NEHA Negative Normal NEG [facility] Comment on above: Performed By: #### N UM #### [facility] ([id number]) [address] [place] [address] [place] [address] KETONES NEHA Negative Normal NEG [facility] Comment on above: Performed By: #### N UM #### [facility] ([id number]) [address] [place] [address] [place] [address] LEUKOCYTE ESTERASE NEHA Trace Abnormal NEG [facility] Comment on above: Performed By: #### N UM #### [facility] ([id number]) [address] [place] [address] [place] [address] NITRITE NEHA Negative Normal NEG [facility] Comment on above: Performed By: #### N UM #### [facility] ([id number]) [address] [place] [address] [place] [address] PH NEHA 7.5 Normal 5.0-8.5 [facility] Comment on above: Performed By: #### N UM #### [facility] ([id number]) [address] [place] [address] [place] [address] PROTEIN NEHA Negative Normal NEG [facility] Comment on above: Performed By: #### N UM #### [facility] ([id number]) [address] [place] [address] [place] [address] SPECIFIC GRAVITY NEHA 1.025 Normal 1.003-1.035 [facility] Comment on above: Performed By: #### N UM #### [facility] ([id number]) [address] [place] [address] [place] [address] UROBILINOGEN NEHA 0.2 eu/dL Normal <1.1 [facility] Comment on above: Performed By: #### N UM #### [facility] ([id number]) [address] [facility], [place] [address] Coding Summaryon 05-31-2023 Coding Summary HTMLBase 64 DweafzwmRMo9vPy+PGhl YWQ+NI1PBYVuC75coTRi aL4pV2IVVPkGHaohQFSD QWpMGkIetcKnTG0oxNVq ZXJu IC8+VO1bWHEcLwlxmXBi t8L2fVH8W91foy0mTGxj iGR1ZJSzDiJlfkvek2pe eRn4FLxzEaboPhFu CTNtaW35OZD7iD33Oa71 gFBxzNHdv2sdjSh0FmMc TCIpTMG3oLxeMRsmk9Lv OQJbE61brPVlx1B3 IGNvbGxhcHNlOyBlbXB0 mN1cNKtuydgjg5dfszdq Qxh8ui72bHYzm9R4oLP1 P9GuboR5GKYbsYCl FywleUEPwC9lvfcdn1sd ejdwBlCqEUMhATl8THb2 SHEyhLvcVoXwBV75NJI3 AUCfxeNlP1QqXSFg oQsgMuD2g1Q5Qd3WC1GF SypqW7BQXIZLDDegqWO+ II60ke47L7XyMyqxJed2 EPJoKFJ4aHV0dF9e IKQjJNtws0V1uZG2A3Cr sgXljb3tp4zzTPPjIEjh Q79kiJKny7P5OFQrnAE1 ONZzgJweGmIwqF89 Oyc+KFQubZvle7LfAvnm l1sen4eejWd5MnryFDCj idKbvCfpDSA1o5EiHv5s HUScvYK6kZS2gA7v ZnFzQtG6NZcyN008DbEv vVAjRklbY49dF7PwbSM+ HLBxXoq1XULqlGujRR8y H7EcZTMgogfbwLRy oXfsSA0fCLNifygiRTWo eP0pGTLkQ3z8NaKlZbI4 WErqO6RdJCMsdsfmLn76 bD0hVjXjAaQ9TMkk K0YcojK5HQYjwIXnNAdi SCX1W89tr7Y3JWKmVADp EOV5tWQ1zW5iiStamrpu bGVmdDsgdmVydGlj OEhnNMcnZ392XZEahQtg PkNvZGluZyBEYXRlOiAg MDIvMjMvMjAyNDwvdGQ+ HOHvEEC3mOaiLLDf iODnYWljVf1yaEocvYxl YD1pRSDxpczlSPIgwJ5o DMVdcKYybTcjGJ8wLILm rskdw135WjTdKTF0 MXYjcCNpU3TxpE6vDtSu XAIgZYHpD5YwyXArJKrm S325BPipUaV6UWRoksFb Y0JhHUGvtImtIeQ8 s2F2Js9Ij7HdniquL3Iw pDEyCvQsWimkAYz8X2Tx PjwvdHI+CC73CKYiEA47 MGw2KRD0nPwvXIep DLCoD6BexS4vEnXeQXHl ZGRkOyc+PHRhYmxlIHdp ZHRoPScxMDAlJyBzdHls GE0rKt9aNYZsLAPh rBqxbHPoCwBgj8tlKFXe DPryLP0bqHfeX1LliCO4 QIKto1m7Mx68U61pS2Tv dXA+KEDuyNL4tLH0 dI4kGiJeNhL1VBkmH310 DbGxyBDyWsrnh5hve2fi zWl0BqU8DPVjxmQrzNmi XJV3f4CwBu62A54h IHdpZHRoPSIxNSUiIHZh cJjcln8kgP6pVi2+PGNv rOP1xES3uH2kKgStQlW8 GNgjL797GgGwkJWg Tpuds4jmc6fuiLo4BzNr UKPtrfJejGucBXV8q3Ay Hs36N1SkkAayj6JxNnr3 cq76mDPis3O4uCP9 J4KoSPRxnmipnMZdnHoh XY0zSMRepqwkHFLcnG3p JFIrR1g3YnNdLwB3WAtt G2HbvlV3XOKjdUIi ICCqiAJFfC7npfkml1uq hfkzHtSgYFNbPMb8CXn7 PVPtdNlsMpRoUUM7OgY6 ZIY0mLLqvW7wbRto johcpH5bPrd+SPJ3bDGz qLURAZ5wCgmnaGV+PHRk QHI1zXtfLWxeTXSmdX8m KODtJ4m6IgHwMcS3 EPzmF8CqvdT7VZPmeANz WSScdMPWhA8bkbjbt8fc hnnfOyCxPFLjVWp5WPf7 LWFsaWduOiBsZWZ0 QqY8JNG9jPSklW0ngCkq rgnmuY8qBiv+QmlydGgg IAD5FYh0E9HlHvr8ZIKc nLsbLX8xwHYkGKmq Ug8uwGqixQqzGU5qGBXp okvrf729OiEaf9zaVJSn oAUbCOmnYYP9B15hc2Y0 TUOiOCZhDGB2oXV7 mH5ogVhgxzjhwBGkvOos kaVsxSpwRDiqUHejL012 IYVirFprIbIrSIs5I8Gv Rzx6XIMvbQxfKM2p uKVwUYukRg1bcNaagBwx YF8cTTIiaqiwp371JbIb b6wrGYJboVEbWKuwJOB0 P07ji2A4UACwQXIe FDT7yHZ4iX7jjCfcwjet bGVmdDsgdmVydGljYWwt HFixZ528HOYzjOisSnLk iCw3P6SfTdc0NOTs yXgvVF6zdLMnOLyaXa3o cPderTynGC3kCBRgimqp z183OoCax3diQCGtlLEk PYbuHWT8G73wh3J9 NKXbPLKyRMY7iZN5pL2y bGlnbjogbGVmdDsgdmVy oHqaZYqnSYapU237IXBh cDsnPlBhdGllbnQg ESvdZAr4J3ZzGvnilNQ+ NL34LBXmUK66jFYpoKPf s4aprXr6XhAtSLTzQWH0 nAneULhsr6KvYXMk Z18jeFIhj6V2ZNKvbRyy rTWlLiDphIE8wK2gXJdo spzty3aiszhzWcbaf6jv yv19wB63P04lQXqv ZHRoPSIzMCUiIHZhbGln fe0snZ2gYj8+PGNvbCB3 iOX2qF2yQSWlAaQ1FDnl N117KcPxdLHnUxtg s7vuq9ovxRv3PuJ0EIRr wxXxpSkuALY7c3XfZw42 I02aNFoxCRLsWSNwSDNb QZOmrUxmdn0feY1w Ii8+BZPloHK8fEY0sM6y GcXtDgH4SEzcU220BoMe gHXzRpruU74tE2BixJB+ CJYaXlb5BEMnpIrn CE3ctDSlEIryXz5kEXT0 LsDmOxAqOFmoX6YhYAKx eezxviglfMQ3HNAvJJFh cY44Xp6yfGhlLAFc rVEWxX0ylomxu1ifoclh DiNlDJVqANt3GGf8DFNj fBdmNyYjLRR8SjP5HMR5 bLUidY4pwIdgprfe hY1yC7ZmWUPlcilzMh53 tR4pSnGzQpR6OZiaOih+ D5uOItJQLUtfM4sJRJIZ ENmOKG9PQNnrkOA+ TDKhHQH7dKjkTPvtEOIt aM7sUUPnK7n5XbXmFvC4 GBjmX8VvYBAowqppIu16 uN7jRkPgAzN6LKpq W2YdudA7HKJgeRKnOXzf UFS0W43ev0Z4UBAxCKEd YOQ7hSJ1eW3ufSofqckb bGVmdDsgdmVydGlj IFnqACdmU057CJWbhQkf FmK3FqTbCaOlLRJ8G0Xj Hhi7DGQimTdaDU0muTHw FUksTj8bcPdvdKvq TL4cDAPwehibHGVacU0r XYYsyCHxdDamIG8kHAGq vygxd577AdBwIGZ6CJGb mDWpH1IqgD9jKhVw PLRyVMWrV6AlbGMuCMpn Q251QFevCyL4DNXqdoXz G6RzQUYowGodUnW2q5W7 Vg3zRCOIKWOmawtb dGQ+ZCMuJGT0zVhvYMpi ORTrbG4cGIShI4e7MjFh TfY0IUeyD9BgIBHipjks Dp10hL3xLtSjYuL5 MXmxA3BcmmT3JXYitGNu IJxbEFJ5S11ip8J6VJEn LPXdAUN4cYQ1wC1tnVip bjogbGVmdDsgdmVy iPgcAIdzJNgcE149FZWn cDsnPkZFTUFMRTwvdGQ+ KQZvLHH7aBhtJXjyOLXu oB5tVGSlH4f5NcPu VgH7POzoD9XwOIGwtbor Fq16oV7gEwZyQvH8BLmk I0IhqpR7DKDfnQMeFYuo VPG3M32ms5O1RDEw SDNpZCF6oQI3uG2rxMlm bjogbGVmdDsgdmVydGlj MOlbVUqeU431BBFvhXyq NcJvJVBbRU8edRzo dGQ+RO91xb27Z3HoSjqs Ywh1VBNfGMJ8uPN7vI4b IRNeUKuel8T0iPN9G7Un vkLhty0np7goTJTi NQmeL33ftZGzn1D5FDAh vCO6CSZhiTmcApBcoA43 Oyc+OLUsyDlol6GyVggk f3voq8srjNz9UrPd FPFtjyLcnLtkOZL3d2Cy Nl03X01dFFiwNJAvNXDh POXdDEUfqKaeyk1ihG2i Ii8+BXLlmIQ7xOQ0 zK3wJgGaXdW7MHtpQ882 IyEgaNSyHsxjn0nso7tz sRr3OyGeJSCrakAfsFpc NQB8w3QqFe24E9Ri rUijx8BiEkw8hv76pQZo j0R0iCP1F2TePFYbmwpw iDOvkRedNC4qAXYxkxgl HERygM8uIJDbJ7i2 YgRnZgB1CMxxW1SpvaP4 UPQwaFAdKYBipRYVhQ9x gwijx1ynwuvwCvWbJAVz DFb3MJg6JRJtcKgp JzRhZBR0LlX9BHC5nQJu cJ7vhKvbxcxwyG3nVno+ IJj9r9luvRKkVH5eeUO6 XQ06BL64tBClq4N3 nSQ2E9ObIRFlubidgyli lWB8UGNnJZRzjC70Iq4r xHnxNa2gKMRoBBT1AJOs bPXrW6ZwsB7eOqLk MVYkIUNdK7DsjFMiPErb U572SDrxPzU8WQJlawUx K8LgLSExrCvbLtZ5e3A4 Ph4GQR51LE40XN62 wZFck3M9sRB0E7LbPRNy hyljkcizjDJ9REPuSTTf tI02Oe8txUwzEe6vCVBs MHO3ALMgyAMhP5Fi qH8oVlQxGGGeGFGqV8Ja uFLvSXnnX191OOdaImY1 AJDghhNiI7StZRYjfWxp XcM3e1R8Yp0QYr29 QH17DK57rZAjl0T1fLQ3 D5OcOEQtsddpwratkNI2 TBLeRRBmoT03Ls9pyCtm Ou1bECTzPFD3HBOy zQMnL4FizI0tNzYyXHIf SNAcV8NxgVXyWVloK237 ZJvdRcK4TMRlvmPzF6Vn SXPllOreFlU8i2E5 Zo7XRLfmxsi9L0LaZoom dHI+JO10YVZbBQ04nPTi vIAfo3fvvJc9JrVuEPDk HAC5iPacJLlfn0Ls ZXI (more content not included)... Normal [facility] C Throaton 05-28-2023 C Throat Ordered by Radha. Normal throat jonny isolated No pathogens isolated [facility] Comment on above: Performed By: #### 1 [id number], [id number], [id number], [id number] #### [facility] (DEFAULT) [address] [place] [address] .QC SARS-CoV-2 (COVID-19)/Fl u/RSV (GeneXpert)on 05-26-2023 Internal Control Pass Normal [facility] Comment on above: Order Comment: Order ed by Radha.[[email or web address]] Performed By: #### 1 [id number], [id number], [id number] #### [facility] (DEFAULT) [address] [place] [address] COVID/Flu/RSV (GeneXpert)on 05-26-2023 Flu A (GXpert COVFLURSV) Negative Normal Negative [facility] Comment on above: Performed By: #### 1 [id number], [id number], [id number], [id number] #### [facility] (DEFAULT) [address] [place] [address] Flu B (GXpert COVFLURSV) Negative Normal Negative [facility] Comment on above: Performed By: #### 1 [id number], [id number] #### [facility] (DEFAULT) [address] [place] [address] RSV (GXpert COVFLURSV) Negative Normal Negative [facility] Comment on above: Performed By: #### 1 [id number], [id number], [id number], [id number] #### [facility] (DEFAULT) [address] [place] [address] SARS-CoV-2 (COVID-19) RNA MILY+probe Ql (Unsp spec) Negative Normal Negative [facility] Comment on above: Result Comment: Perf ormed by PCR methodology. Performed By: #### 1 [id number], [id number] #### [facility] (DEFAULT) [address] [place] [address] ED Clinical Summaryon 2023 ED Clinical Summary [facility] - Emergency Department [address] [place] [address] ED Clinical Summary PERSON INFORMATION Name: LIA DESAI Age: 22 Years Sex: FEMALE : 2000 MRN: Acct#: Visit Reason: Diarrhea; Fever; Headache; Throat pain - Adult; Body aches; HEADACHE, FEVER, BODY ACHES Arrival: 05/26/2023 17:02:55 Discharge: 05/26/2023 18:57:00 LOS: 000 01:55 Check In: 05/26/2023 17:02:55 Checkout:05/26/2023 18:57:00 Address: [address] [place] [address] PCP: ROBERT MARRERO PROVIDER INFORMATION Provider Role Assigned Unassigned Yassine Maldonado MD ED Provider 05/26/2023 17:04:17 [place] [employer] Nurse 05/26/2023 17:19:42 VITALS INFORMATION Vital Sign Triage Latest Temperature Tympanic Temperature Temporal Artery Pulse Rate O2 Sat 97 % 97 % Respiratory Rate 16 br/min 16 br/min Blood Pressure /71 mmHg /71 mmHg MEDICAL INFORMATION Medications Given: Allergy Information: Adhesive Bandage; Zithromax PHYSICIAN DOCUMENTATION DISCHARGE INFORMATION: Discharge Disposition: Home Discharge Location: Home PATIENT EDUCATION INFORMATION Instructions: Hypertension, Adult, Aetq-np-Dhpm; Nausea and Vomiting, Adult, Kswk-sy-Iwtj Follow-Up: With: Address: When: ROBERT MARRERO [address] [place] [address] Within 3 to 5 days DIAGNOSIS: 1:Nausea vomiting and diarrhea; 2:Elevated blood pressure reading; Diarrhea, unspecified Patient Understands: Yes - Patient/family/careg iver verbalizes understanding of instructions given Comment: Normal [facility] ED Patient Summaryon 024 ED Patient Summary [facility] - Emergency Department [address] [place] [address] PATIENT DISCHARGE INSTRUCTIONS Patient Information Name: LIA DESAI Age: 22 Years Date of : 2000 Reason For Visit: Diarrhea; Fever; Headache; Throat pain - Adult; Body aches; HEADACHE, FEVER, BODY ACHES Arrival Time: 05/26/2023 17:02:55 Primary Care Physician: ROBERT MARRERO Attending Physician: Yassine Maldonado MD Comment: Visit Diagnosis: Diagnoses This Visit Body aches ([id number]) Diarrhea ([id number]) Diarrhea, unspecified (R19.7) Elevated blood pressure reading (R03.0) Fever ([id number]) Headache ([id number]) Nausea vomiting and diarrhea (R11.2) Throat pain - Adult ([id number]) The Pharmacy at [facility] is open Saturday through Saturday from [...] and/or drug addiction problems; contact the [facility] 29/10 Crisis Hotline -Text 4HRIY eq [phone]. If you received any narcotics, sedation, or [...] any legal documents With: Address: When: JANESROBERT SALDIVAR [address] [place], [place] [id number] Within 3 to 5 days Medication Information: The exam and treatment you received today in the [facility] Emergency Department were for an urgent problem and are not intended as complete care. It is important for you to follow up with a doctor, nurse practitioner, or physician?s dental assistant instructor for ongoing care. If your symptoms become [...] we can reach you if necessary. [facility] Emergency Department has provided you with a complete list of medications post discharge. Please inform your tobacco drummer/provider of your visit and for further instruction [...] pressure an (more content not included)... Normal [facility] Strep Aon 05-26-2023 Strep procedure control Pass Normal [facility] Comment on above: Performed By: #### 1 [id number] #### [facility] (DEFAULT) [address] [place] [address] Streptococcus A Negative Normal Negative [facility] Comment on above: Performed By: #### 1 [id number] #### [facility] (DEFAULT) [address] [place] [address] Coding Summaryon 05-20-2023 Coding Summary HTMLBase 64 OjpcdmjnSGh2rEg+PGhl YWQ+RD6EGOGoA31fdAPl iA8iO6CJDIdVPpxmWPKM HQoYUaAcgiZwKY2ezQCd ZXJu IC8+BP3lRDViVotmbXWz y6H8mCC9X75hnq8rRHam vMW0BWAeWxJfhmykq7wg rXk3ZNdmTlaaGoWz YZNwhC47EGF9aD82Yw96 xMFexQJno0mmrAn0AqUy NGVrRFX0yIyaYHznp9Qs WPNtR19obIOnu0M9 IGNvbGxhcHNlOyBlbXB0 iL6bLLkgnypjb6wxoyfy Qll5bk42kLEvf7S1kBO8 I9DsjiF6UUFgzGQj MushcNOOgH2mtjxqx0jc npqsHrBwYKYuGLe8GEu0 BQHaoUotMmAqOF56FLS1 ONGhkkRiR2OuYMLr mEdcAsD5j9J5Bk8LQ1OI RcpmA1XHHLLDSNyvdNG+ ZM32qs24Y2YaIzebMoz6 FZEvVUJ2aQU2jR7o COToCDkys4Y1eBR0N4Qm glErmr1il1dvYCXiNEfr C55mbOMac6V5HUYfqEI8 DTVagUfuHxPowJ65 Oyc+ZMNzwHzvy7BsUxaw q1dsa5wxgSc7SqlmMQTy cgGqmJzpSIL0w3EvSv9d GSCgpEL1gTX4yA4s IeTuTlR3JTmyE569ZdPc aHYuEbusA06kN2DhcDM+ HHYiOpe0SJWggQpmEL8h D2YgPEWfljohrKYd aUnnXX0wRVQnvopxKXTj kX9sFIHyD2b9GdKoUhB6 XXgiB8FlFBZqsiyuTw21 jB4kVxWsUwL4ZIjr A3TfpyC3DIClwGFiPPua QCS7O38ul7G9EEBsEEAt TPQ9aRD6rP1ymPnoovgc bGVmdDsgdmVydGlj ZLghHBvpF779NTUxgNgt PkNvZGluZyBEYXRlOiAg MDIvMTIvMjAyNDwvdGQ+ HDSvAQB0kTclNPVh eYMeHHgsEu7niIdqlLqa PS6vQLBodsnoAAJnaP8q RSDbnSJfnLliHG4rJVAm ujyei543NnZcUWC5 OEDgiVMlU2XioT7yCnIl VQNrVXWaF7OygJIuMLhs R867VCfdHcA0WADryrCr H7IaTQVccIajFbC9 l9W5Yi1Qy3WighrxL1Ni bHXzDePqSxfeICy2O9Pc PjwvdHI+CI86BCDgBI65 UNp0AIV8kKgfZBvp ETCkA0NwfO2vEtErBZAd ZGRkOyc+PHRhYmxlIHdp ZHRoPScxMDAlJyBzdHls BW1iOo9yJLFbSBGl kOpasBAdIkEmn3tzXRDh JLgmLV1gwSuuL3IbeZR0 BYPfa4b9Fw75Q69iZ9Jm dXA+XSTloPA4oOM9 lN3pKuQqFqT4PLesF138 YfGigVIwQzcvt2rlx3bn hZu3JpV7DLGbrcLzkWzo RLF4g6LmAe04Q33v IHdpZHRoPSIxNSUiIHZh zTmmmw4hbS5uAt5+PGNv oRL8fCG9sR7kLmUcAwC9 LQxoC916NhJpzJDd Iedbv0osb2cesJi9OeCd KZUsvnItxIipXFM5y9Vb Br82Q4BmzXngr5CxUvt3 wk67bJGca3S4tMD0 A3TlBGRokybgbOQnrRun GM0gFWDagrziMKSskR1y EDSxD1b8KbUpYdC7BJfq L3BacmK5MYIgmXLx OKUgtYYJkF5czqsns5sg jfoqTxEiSVDgTYq4QCo0 RVZciDixRpVzWYX5OeL0 HGR8zOPaoF7ctJrm onshlB8vWot+ZVN4wLEo xUDGDD6jDhtulYA+PHRk DVA8fEosJZesCQCcuR4u FRCwC8g0KsQdItX9 EMuqL7TvtoR1HUBksGMj FTJmzPHJiO0yaxexb1ag hzonTgYhBXYtZFm6AFf8 LWFsaWduOiBsZWZ0 EgI1TAC5bUPseF3ipIyn iupkcC0wUnp+QmlydGgg YBO8UIn6F9GdXjk2YWLx yUgrZK4obIUvDPjt Vl7zhZwuqMszOY3xDLFi yaign636NwTjd1reCNIh iLMeVUhyIDI3S23tp8F0 NQTnZWZyZDU1xZX6 eE6lfAnocvzgsIDvcSbt xgCjdVjhXYuoRTyhH325 OLKemZfdHiJtQVd8E3Ea Ejy6XASydQtpVH2x mSJvTNfwYi6iwRypjRcq YJ9nWFJwbjprl056BoHh j5txBHQuqGNtIEolANZ1 R43wa2M0UTViYAYg VTC1rZE0cS0ruRqpugih bGVmdDsgdmVydGljYWwt NVxgC282TXNglIkbCzXs wUq7E5GmHfs4DKZw cAffMF2fcWPaLKwwUo0t dNyeqElwPZ7rGVSrbovn o152UpNub8trWWXlrCDj KTsoMFU1H56he1V0 AZGyOBVqDYF1rFC6vC5l bGlnbjogbGVmdDsgdmVy qNprHDwbTMaaZ261PKTp cDsnPlBhdGllbnQg KSzeLVd5A9FcSbmczFE+ ZO60DHPaGN92sCBlrHOv o1hmbMa6XlCjVSGcISJ1 qWumNLuwv2XcFTIp Z12olDUzz5Y3XQOtuMpx iCRbAtKyrFE0iD9aTXso xabzy4nvqaakUnlzm4ei en31oX62Y25wHYrv ZHRoPSIzMCUiIHZhbGln yc4maP4bKs0+PGNvbCB3 yLH5iT6tBALeTnF4QMrv S536HkPehLCiEnxm e8kxx2ndmFe9HeP2NKVh rnOvjGonJBA3r6ToRs35 P52uCIudWODaABRqXLZr XTWhqRvmrs4ehF7p Ii8+XNHneFS5vOD4yS1r NsDgZwQ9JJfpS735GhCl lRHmAzdyU59rH6OixNY+ PVWaKiu8STOgmGuh CD3ucFTwRXrdQi7cTAM1 ThWxIfGzLUfpY4LcEXRa fondykkehWI8RBTpTYEk zM08Cb7auDyuXIYp kEWQgA5bsomzb2xymoxx CuYfYVEvHQh0ZFh3VXBx vFcjQdCrGGN4EkR3HAT2 oOJgnZ1tqWsoymxe gQ4fC3NuMMXywsquKb14 oV2eZcMmTcS3KWugDwj+ A6tPKmFTPFosH1xQNOKT GZvUIF8FSJlmyLZ+ BFWiAGO5jTlrJAzeKBOu nZ5bQCEuG0n0LaEhKtW9 PNtvF7MiVDVhgjxqLv27 kV7pNhEeKwN3XGnw H9YejkU0SYWadNNjMKzq KUK9Y37un5H5JEWjAJFn IFN0eLO4cR6abKmcanfr bGVmdDsgdmVydGlj RLsaJKxuH464YFZpoPkw LhF1IsCmPsCzTLZ0M5Tl Jeh7ADNkcDosJK2svRLi JFwlTz1qmHauxYyg QF7oTTEliljeLBNouH7w BPPhfJHolXevAZ9pSNCn fofkg486YiTjCLK1HTUm gVGxJ0FqnR3nMcKz ZQRoRUUnZ4GssRZgHVuz M160ZNziWeS9EJXtjeGl A0FaLCBovYieImH4o5Q9 Dp8tWQLFTXYbpkka dGQ+JLXyFRY1bUciKZqu IWJxpJ1wFBVyR9i3YnIg ReB2LNxyI8ThOAIitnbp Qg97wT8oTyYeEnM8 ITyvE4EakkE9ZQJfuCLm JJotZXD0L04pk3H0RRWl ULYcEID3iBX0eR3onUew bjogbGVmdDsgdmVy nGnfSPusPMrgB886NVEh cDsnPkZFTUFMRTwvdGQ+ ZWCqCSQ6pQfyJDpzSFZi wI1nAWSnF5w4JmCh KeQ4FLxqR6IeHUVblcgt Qt00lK2jScJiLcN1IFae A4GogtO9FXCzeOJlVBhl ZGN6T12vf3W0LADh UCFcNAR7lKM7fT1bqLjy bjogbGVmdDsgdmVydGlj YTgkUFvcH376OVCwfDkv UtDfARDqNT5fmGtm dGQ+XA47cf33L2VsNxut Gmf0IMAvALQ9fXE0dV8c BRJvHOzfm2F6yBQ5Q3Nk mcTtms3sp9zsMCSd QQlrS83yeVQxr1B5CIAt mHU6ELXsbLsaCxAfkE89 Oyc+URPfzDudv6IpApzz r5rtn1ngiTt2RdRs PUXduqOgnXmrMYG0g1Vw Zc78I48qZJdjEHYcLNKz XPBfEWTesOgzyz6lfN8p Ii8+YQGsxUQ7vVD6 lQ8tLeOjYcO4TZmzS448 AgWndYNeJafji4lni3vo jUn7CoYgVIPxogSzcTcx NAI0d2FrDv05J8Jz jWpfm3WzJpe4lc99kEOz d2F3aXX1C6UgLHDryxjw nLTvxRkiIZ4sVCTejdvx OSHxwU1kSGTtA5h9 FdYdJqC0EJkiZ4TagrR9 ADNgdTQxTDSkaHTYlP9r basrj6dljdshRgDnMCLg FMk4TWc0OLXhpDvd JkAdFEI6EsL4CGG5iLMm rI8rjUeosdtbqN6iUvg+ TCv5i8ebxQUmNX2qyYY5 SJ91KC18gTVuc2O7 jXP6M1GcHDLjldcouvxw hEI8BFWdIPAdbZ22Om7p gSgjBk4kBBFsIMT7YYPw nEIeV4OyuA0xPiPg PQXcJBMrY4BkvWSaTCgd Q707NZcqSwB6TOFumcVz P2IoNWBrqEllYfV2d2J3 Ym7ATU43JW65WB69 pDOjq9B4cRW9K4IqZWUd ipuqcmsttMT8EJHqAQBr mY51Oz7qjOsvQu0yVDIk NUG5JEDoxOBxI8Av nS8uXjEhOPHwNDVyX4Rg bIZqSQgaJ119CLhiImD2 PZRzjfNyV4QxWAQrhJao LzB2a8D9Fo7TYf77 OJ83GK43jPRup0D1tDA1 R1RhXJGhjkrupllesCK9 WROnIFOtgN06Oi7liAwf Rj3uOJKyDMO5ELDb jNMsD0YoeP4dDaQzMPGj ZZNnN6VphFHoCZbaI340 LCsrBzB1RSOxufMoO4Dr FUVgdKbaVtQ8s1U4 Ld7IDPqbxnb3L7AeMolz dHI+BS96QVVqNX64tXOh iWRim4dmdOt7PcWjJEWb VSV5zHuvKVqcz8Wd ZXI (more content not included)... Normal [facility] C Urineon 05-18-2023 C Urine Urine Culture ordered as a result of parameters set on specific urine dip and urine microsopic results. 15,000 cfu/ml Corynebacterium species (DIPTHEROIDS) Normal skin jonny isolated Normal [facility] Comment on above: Performed By: #### 5 [id number], [id number], [id number] ####[facility] (DEFAULT)[address] [place] [address] ALL CBC WITH AUTO DIFFon BASOPHILS ABSOLUTE AUTO 0.0 [facility] Basophils/100 WBC (Bld) 0.3 % 0.2 - 2.0 % [facility] Eosinophils/100 WBC (Bld) 0.5 % Low 0.9 - 7.0 % [facility] Erythrocyte distribution width (RBC) [Ratio] 12.2 % 11.0 - 15.0 % [facility] Hematocrit (Bld) [Volume fraction] 38.6 % 36.0 - 48.0 % [facility] Hemoglobin (Bld) [Mass/Vol] 12.3 g/dL 12.0 - 16.0 g/dL [facility] IMMATURE GRANULOCYTES ABS AUTO 0.02 [facility] Immature granulocytes/100 WBC (Bld) 0.2 % 0.0 - 0.5 % [facility] Interpretation and review of laboratory results Abnormal [facility] LYMPHOCYTES ABSOLUTE AUTO 3.1 [facility] Lymphocytes/100 WBC (Bld) 32.8 % 20.5 - 60.0 % [facility] MCH (RBC) [Entitic mass] 28.6 pg 26.7 - 34.0 pg [facility] MCHC (RBC) [Mass/Vol] 31.9 g/dL 29.9 - 35.2 g/dL [facility] MCV (RBC) [Entitic vol] 89.8 fL 81.0 - 99.0 fL [facility] MONOCYTES ABSOLUTE AUTO 0.7 [facility] Monocytes/100 WBC (Bld) 7.7 % 1.7 - 12.0 % [facility] NEUTROPHILS ABSOLUTE AUTO 5.4 [facility] Neutrophils/100 WBC (Bld) 58.5 % 43.0 - 75.0 % [facility] Platelet mean volume (Bld) [Entitic vol] 10.7 fL 9.5 - 13.5 fL [facility] EO # 0.1 [facility] PLT 211 [facility] RBC 4.30 [facility] WBC 9.3 [facility] .Auto Diff 1on 05-15-2023 Auto Atkinson % 8 % Normal 1-12 [facility] Comment on above: Performed By: #### 1 [id number], [id number], [id number], [id number] #### [facility] (DEFAULT) [address] [place] [address] Baso Abs# 0.1 x10 Normal 0.0-0.2 [facility] Comment on above: Performed By: #### 1 [id number], [id number], [id number], [id number] #### [facility] (DEFAULT) [address] [place] [address] Basophils/100 WBC (Bld) 1.0 % Normal 0.2-2.0 [facility] Comment on above: Performed By: #### 1 [id number], [id number], [id number], [id number] #### [facility] (DEFAULT) [address] [place] [address] Eos Abs# 0.0 x10 Normal 0.0-0.4 [facility] Comment on above: Performed By: #### 1 [id number], [id number], [id number], [id number] #### [facility] (DEFAULT) [address] [place] [address] Eosinophils/100 WBC (Bld) 0.2 % Low 0.9-4.0 [facility] Comment on above: Performed By: #### 1 [id number], [id number], 4334166, [id number] #### [facility] (DEFAULT) [address] [place] [address] Lymph Abs# 2.6 x10 Normal 1.3-2.9 [facility] Comment on above: Performed By: #### 1 [id number], [id number], 6000035, [id number] #### [facility] (DEFAULT) [address] [place] [address] Lymphocytes/100 WBC (Bld) 25 % Normal 14-48 [facility] Comment on above: Performed By: #### 1 [id number], 97699973, 1309300, [id number] #### [facility] (DEFAULT) [address] [place] [address] Atkinson Abs# 0.9 x10 High 0.0-0.8 [facility] Comment on above: Performed By: #### 1 [id number], [id number], 2735605, [id number] #### [facility] (DEFAULT) [address] [place] [address] Neut Abs# 6.6 x10 Normal 1.5-9.2 [facility] Comment on above: Performed By: #### 1 [id number], 75675023, 8624683, [id number] #### [facility] (DEFAULT) [address] [place] [address] Neutrophils/100 WBC (Bld) 65 % Normal 44-88 [facility] Comment on above: Performed By: #### 1 [id number], 60798011, 4459076, [id number] #### [facility] (DEFAULT) [address] [place] [address] Standardon 05-15-2023 eGFR Non AA >60 Invalid Interpretation Code [facility] Comment on above: Performed By: #### 1 [id number], [id number], 0440865, [id number] #### [facility] (DEFAULT) [address] [place] [address] eGFR AA >60 Invalid Interpretation Code [facility] Comment on above: Performed By: #### 1 [id number], 76777123, 6930620, [id number] #### [facility] (DEFAULT) [address] [place], [place] [address] Anion gap [Moles/Vol] 15.2 mmol/L Normal 5.0-19.0 [facility] Comment on above: Performed By: #### 1 [id number], 19087688, 8879688, [id number] #### [facility] (DEFAULT) [address] [place] [address] Calcium [Mass/Vol] 9.2 mg/dL Normal 8.9-10.3 [facility] Comment on above: Performed By: #### 1 [id number], 66341643, 7248498, 7828072444 #### [facility] (DEFAULT) [address] [place] [address]336 Chloride [Moles/Vol] 106 mmol/L Normal 101-111 [facility] Comment on above: Performed By: #### 1 [id number], 19159777, 9583685, [id number] #### [facility] (DEFAULT) [address] [place] [address] 98704 CO2 [Moles/Vol] 17 mmol/L Low 21-32 [facility] Comment on above: Performed By: #### 1 [id number], 86055101, 5369436, [id number] #### [facility] (DEFAULT) [address] [place] [address] 99228 Creatinine [Mass/Vol] 0.55 mg/dL Low 0.60-1.30 [facility] Comment on above: Performed By: #### 1 [id number], 79384118, 5349582, [id number] #### [facility] (DEFAULT) [address] [place] [address] 09618 Glucose [Mass/Vol] 75.0 mg/dL Normal 74.0-118.0 [facility] Comment on above: Performed By: #### 1 [id number], 20164010, 1192339, [id number] #### [facility] (DEFAULT) [address] [place] [address] Osmolality 266 mOsm/L Invalid Interpretation Code [facility] Comment on above: Performed By: #### 1 [id number], 98667590, 2530394, [id number] #### [facility] (DEFAULT) [address] [place] [address]3956 Potassium [Moles/Vol] 4.2 mmol/L Normal 3.6-5.1 [facility] Comment on above: Performed By: #### 1 [id number], 48121996, 6154473, 0496462588 #### [facility] (DEFAULT) [address] [place] [address] Sodium [Moles/Vol] 134.0 mmol/L Low 136.0-144.0 [facility] Comment on above: Performed By: #### 1 [id number], 05585647, 2227940, [id number] #### [facility] (DEFAULT) [address] [place] [address] Urea nitrogen [Mass/Vol] 9 mg/dL Normal 8-26 [facility] Comment on above: Performed By: #### 1 [id number], 59801257, 9036525, [id number] #### [facility] (DEFAULT) [address] [place] [address] Urea nitrogen/Creatinine [Mass ratio] 16.3 mg/mg High 4.6-16.2 [facility] Comment on above: Performed By: #### 1 [id number], 28966291, 4288924, [id number] #### [facility] (DEFAULT) [address] [place] [address] Breakpoint Chem Normal [facility] Comment on above: Performed By: #### 1 [id number], 28549556, 4470474, [id number] #### [facility] (DEFAULT) [address] [place] [address] CBC w/ Auto Diffon 4 Erythrocyte distribution width (RBC) [Ratio] 12.9 % Normal 11.5-15.0 [facility] Comment on above: Performed By: #### 1 [id number], 30188647, 8431984, [id number] #### [facility] (DEFAULT) [address] [place] [address] Hematocrit (Bld) [Volume fraction] 39.2 % Normal 33.7-40.4 [facility] Comment on above: Performed By: #### 1 [id number], 00199463, 9663255, 2609017827 #### [facility] (DEFAULT) [address] [place] [address] Hemoglobin (Bld) [Mass/Vol] 13.4 g/dL Normal 11.3-15.9 [facility] Comment on above: Performed By: #### 1 [id number], 99087478, 7579200, [id number] #### [facility] (DEFAULT) [address] [place] [address] Man Diff? RBC Morph Only Invalid Interpretation Code [facility] Comment on above: Performed By: #### 1 [id number], 43821542, 0984671, [id number] #### [facility] (DEFAULT) [address] [place] [address] MCH (RBC) [Entitic mass] 29 pg Normal 24-34 [facility] Comment on above: Performed By: #### 1 [id number], 20818440, 6175701, [id number] #### [facility] (DEFAULT) [address] [place] [address] MCHC (RBC) [Mass/Vol] 34 g/dL Normal 26-37 [facility] Comment on above: Performed By: #### 1 [id number], 10988246, 4162177, [id number] #### [facility] (DEFAULT) [address] [place] [address] MCV (RBC) [Entitic vol] 84 fL Normal 81-100 [facility] Comment on above: Performed By: #### 1 [id number], 19346625, 1801040, [id number] #### [facility] (DEFAULT) [address] [place] [address] Platelet 228 x10 Normal 138-427 [facility] Comment on above: Performed By: #### 1 [id number], 64581054, 5503587, [id number] #### [facility] (DEFAULT) [address] [place] [address] Platelet mean volume (Bld) [Entitic vol] 8.7 fL Normal 6.3-10.2 [facility] Comment on above: Performed By: #### 1 [id number], 80711668, 4228778, [id number] #### [facility] (DEFAULT) [address] [place] [address] 32287 RBC 4.66 x10 Normal 3.70-5.30 [facility] Comment on above: Performed By: #### 1 [id number], 15775738, 0669499, [id number] #### [facility] (DEFAULT) [address] [place] [address]6771 WBC 10.1 x10 Normal 3.5-10.5 [facility] Comment on above: Performed By: #### 1 [id number], 50544542, 3278480, [id number] #### [facility] (DEFAULT) [address] [place] [address]19 ED Clinical Summaryon 2023 ED Clinical Summary [facility] - Emergency Department [address] [place], [place] [id number] ED Clinical Summary PERSON INFORMATION Name: LIA DESAI Age: 22 Years Sex: FEMALE : 2000 MRN: Acct#: Visit Reason: Vomiting - ; 10 WEEKS , NAUSEA, VOMITING Arrival: 05/15/2023 13:59:38 Discharge: 05/15/2023 19:41:00 LOS: 000 05:42 Check In: 05/15/2023 13:59:38 Checkout:05/15/2023 19:41:00 Address: [address] [place] [address] PCP: ROBERT MARRERO PROVIDER INFORMATION Provider Role Assigned Unassigned Joelle Nava MOTOR CARRIER INSPECTOR Nurse 05/15/2023 15:05:55 Mamie Moore MD ED Provider 05/15/2023 15:56:16 Chrissy Diego MOTOR CARRIER INSPECTOR Nurse 05/15/2023 19:19:53 VITALS INFORMATION Vital Sign [...] With: Address: When: ROBERT MARRERO [address] [place] [address] Business (1) Within 3 to 5 days With: Address: When: Follow up with specialist Within 3 to 5 days Comments: Your COURT INTERPRETER DIAGNOSIS: 1:Hyperemesis of Patient Understands: Yes - Patient/family/careg iver verbalizes understanding of instructions given Comment: [facility] ED Note-Nursingon 05-15-2023 ED Note-Nursing PT. C/O nausea and vomiting. PT. is 10 weeks with her first child. PT. has prescribed Zofran but has been out of it for 1 week. Pt. is scheduled for a Zofran pump. Pt. states that she has not been able to keep any foods or fluids down. Pt. is A&O X4. PT. has a steady gait. [facility] ED Patient Summaryon 024 ED Patient Summary [facility] - Emergency Department [address] [place], [place] [id number] PATIENT DISCHARGE INSTRUCTIONS Patient Information Name: LIA DESAI Age: 22 Years Date of : 2000 Reason For Visit: Vomiting - ; 10 WEEKS , NAUSEA, VOMITING Arrival Time: 05/15/2023 13:59:38 Primary Care Physician: ROBERT MARRERO Attending Physician: Mamie Moore MD Comment: Visit Diagnosis: Diagnoses This Visit Hyperemesis of (O21.0) Vomiting - ([id number]- [id number]) The Pharmacy at [facility] is open Saturday through Saturday from [...] alcohol and/or drug addiction problems; contact the [facility] 29/10 Crisis Hotline -Text 4NEFG to 223240. If you received any narcotics, sedation, or [...] legal documents With: Address: When: ROBERT MARRERO [address] [place], [place] [id number] Business (1) Within 3 to 5 days With: Address: When: Follow up with specialist Within 3 to 5 days Comments: Your COURT INTERPRETER Medication Information: The exam and treatment you received today in the [facility] Emergency Department were for an urgent problem and are not intended as complete care. It is important for you to follow up with a doctor, nurse practitioner, or physician?s dental assistant instructor for ongoing care. If your symptoms become [...] we can reach you if necessary. [facility] Emergency [facility] has provided you with a complete list of medications post discharge. Please inform your tobacco drummer/provider of your visit and for further instruction on these medications. Any specific questions regarding your chronic medications and dosages should be discussed with your primary care physician(s) and/or pharmacist. Medications That Were Updated - Follow Below Instructions [facility] [address], [place] [id number], [phone] Updated: ondansetron (ondansetron 4 mg oral tablet, [...] drinking abad (more content not included)... Normal [facility] Morphologyon 05-15-2023 RBC morphology finding Nom (Bld) Normal Normal [facility] Comment on above: Order Comment: Order added by Discern. Result Comment: some platelet clumping observed Performed By: #### 1 [id number], 61469287, 7135210, [id number] #### [facility] (DEFAULT) [address] [place] [address] UA Hjagw3dw 05-15-2023 UA Amorph. 1+ [facility] Comment on above: Order Comment: Urina lysis Microscopic order added on by Discern Expert Rules system. Performed By: #### 5 [id number], [id number], [id number] ####[facility] (DEFAULT)[address] [place] [address] UA Bacteria 1+ [facility] Comment on above: Order Comment: Urina lysis Microscopic order added on by Discern Expert Rules system. Performed By: #### 5 [id number], [id number], [id number] ####[facility] (DEFAULT)[address] [place] [address] UA Mucous 1+ [facility] Comment on above: Order Comment: Urina lysis Microscopic order added on by Discern Expert Rules system. Performed By: #### 5 [id number], [id number], [id number] ####[facility] (DEFAULT)[address] [place] [address] UA RBC 3-5 [facility] Comment on above: Order Comment: Urina lysis Microscopic order added on by Discern Expert Rules system. Performed By: #### 5 [id number], [id number], [id number] ####[facility] (DEFAULT)[address] [place] [address] UA Squam Epi Moderate [facility] Comment on above: Order Comment: Urina lysis Microscopic order added on by Discern Expert Rules system. Performed By: #### 5 [id number], [id number], [id number] ####[facility] (DEFAULT)[address] [place] [address] UA WBC 5-10 [facility] Comment on above: Order Comment: Urina lysis Microscopic order added on by Discern Expert Rules system. Performed By: #### 5 [id number], [id number], [id number] ####[facility] (DEFAULT)[address] [place] [address] UA w Culture if Ind Standard on 05-15-2023 Breakpoint UA Normal [facility] Comment on above: Performed By: #### 5 [id number], [id number], [id number] ####[facility] (DEFAULT)[address] [place] [address] Color (U) Yellow Normal [facility] Comment on above: Performed By: #### 5 [id number], [id number], [id number] ####[facility] (DEFAULT)[address] [place] [address] Culture? Indicated Invalid Interpretation Code [facility] Comment on above: Result Comment: Resu lt created by rule GL_MAGR_ADD_UA_CULT Result created by rule GL_MAGR_ADD_UA_CULT Result created by rule GL_MAGR_ADD_UA_CULT1 Result created by rule GL_MAGR_ADD_UA_CULT Performed By: #### 5 [id number], [id number], [id number] ####[facility] (DEFAULT)[address] [place] [address] 13177 Glucose (U) [Mass/Vol] Negative Normal [facility] Comment on above: Performed By: #### 5 [id number], [id number], [id number] ####[facility] (DEFAULT)[address] [place] [address] 34035 Ketones Ql (U) >=80 Normal [facility] Comment on above: Performed By: #### 5 [id number], [id number], [id number] ####[facility] (DEFAULT)[address] [place] [address] 41270 Micro? Indicated Invalid Interpretation Code [facility] Comment on above: Result Comment: Resu lt created by rule GL_MAGR_ADD_UA_MICRO Performed By: #### 5 [id number], [id number], [id number] ####[facility] (DEFAULT)[address] [place] [address] 62591 UA Bilirubin MODERATE Abnormal [facility] Comment on above: Performed By: #### 5 [id number], [id number], [id number] ####[facility] (DEFAULT)[address] [place] [address] 64337 UA Blood Negative Normal NEGATIVE [facility] Comment on above: Performed By: #### 5 [id number], [id number], [id number] ####[facility] (DEFAULT)[address] [place] [address] 73004 UA Clarity SL CLOUDY Abnormal CLEAR [facility] Comment on above: Performed By: #### 5 [id number], [id number], [id number] ####[facility] (DEFAULT)[address] [place] [address] 14833 UA Leuk Est Negative Normal NEGATIVE [facility] Comment on above: Performed By: #### 5 [id number], [id number], [id number] ####[facility] (DEFAULT)[address] [place] [address] 27185 UA Nitrite Negative Normal NEGATIVE [facility] Comment on above: Performed By: #### 5 [id number], [id number], [id number] ####[facility] (DEFAULT)[address] [place] [address] 82796 UA pH 6.5 Normal 5-8 [facility] Comment on above: Performed By: #### 5 [id number], [id number], 7380384 ####[facility] (DEFAULT)[address] [place] [address] 60772 UA Protein 30 Abnormal NEGATIVE [facility] Comment on above: Performed By: #### 5 [id number], [id number], 8017410 ####[facility] (DEFAULT)[address] [place] [address] 60292 UA Spec Grav >=1.030 Normal 1.001-1.035 [facility] Comment on above: Performed By: #### 5 [id number], [id number], [id number] ####[facility] (DEFAULT)[address] [place] [address] 78022 UA Urobilinogen 1.0 mg/dL Normal 0.2-1.0 [facility] Comment on above: Performed By: #### 5 [id number], [id number], [id number] ####[facility] (DEFAULT)[address] [place] [address] Urine Source Clean Catch Normal [facility] Comment on above: Performed By: #### 5 [id number], [id number], [id number] ####[facility] (DEFAULT)[address] [place] [address] hCG Quantitativeon hCG Quantitative 241819.0 mIU/mL High 0.0-0.6 [facility] Comment on above: Performed By: #### 1 [id number], 42490074, 1279276, [id number] #### [facility] (DEFAULT) [address] [place] [address] Coding Summaryon 05-02-2023 Coding Summary HTMLBase 64 LxmwpimpGMc8oLs+PGhl YWQ+FK8MMVCgH89psOVq pB4lS6VYIYuRCvqdFTKJ KVaEFkSmodFrYG6xsIVr ZXJu IC8+GA0oGAVmSxbcwDVz j9Z5wWX8Y33dur1rBWrt jHL6IESnZbNpmbgvs2zn oRu8PFpyTegvOmUn QKVigN26ANV4tG16Ea53 vJTakGJvx1xyeCt2EbZo OGXzQNR0yClcBXmbn9Zh VUMeH33lkFUwb0F2 IGNvbGxhcHNlOyBlbXB0 lR1bYAgtpzsvp3opigyq Xpw6zw21oOAts8Z7gWI8 P6WzcwE8RWCoaMJp FlpecJTAxW9ckjzxv0tf cnncLjItLNIsDIx4NFn1 KJKzsOniZrAbKH20MQC6 YHKoyrKwC9IhQEBw nDcdRzN6r8E6Mr0AL5PU HqahJ0ZEMVZNPSvyiTQ+ KW47wo23F9TaJgllMel8 EFSkDTF7qYV6jF8k YCCkEIrit8D1sIG1R2Wv azZpts9me4wqAJUbQZrp A16rcJAst5R9CWJsfAT1 XYXibOvzVsRimM95 Oyc+QJXefTaxv0MjUijr l3fon7xhqHd4AvazIKOi ujEnyBaqOKR4k4SjVr0e ZYLrnMV4gPC0oV6x PoLlMnQ1USlsK260NjGj hQUjSbafD16xR8FecPF+ GNEyRoq8FFVshJtxIU8a D9AzTTEuqemvhNOh bOvlAB7sQXAceupqWWZi qR1oGORlV3t4KxVrJtI5 ZUcsQ8DiUAStwazxNx96 kK8bZdRlYcI1PKaw R1OlwaB3RAPrdDXgFHym QHN1X48vo1U9OLAaSDJx PFO4rHX4jE9hlTeanwbq bGVmdDsgdmVydGlj GYjqSSubG287ZBJhxNig PkNvZGluZyBEYXRlOiAg MDEvMjUvMjAyNDwvdGQ+ WATrAMV0sCjbOPCo lHHwKQdiSk5geYisaNnw QF5yMWEuptatXDYdyT1r IEBwaZZzoGwmPE1jVBNq ffrrv331XbRfXIN1 JLIexEFfH9FpoB0oHcQk ADQgHCMmQ0BbuXDjSQey L949AMhyWbS7SMDfmjXr R9IsYJAyxOpoIoX8 f1B3Ad5La0RimrhpQ7Ov vDJoDhZgNkcgTXl5L3Lx PjwvdHI+SH81ZWGdYU43 WTr5GKH9pGegAJfl GOQlR2JyaJ1vRzNeTJHb ZGRkOyc+PHRhYmxlIHdp ZHRoPScxMDAlJyBzdHls NL8oPz7yNEXxNTMb aCmroQQxCnIvl4crARQs PSmqAG8rpHrwO8TnzLO2 XFKgq0l8Xl40B38kC8Hy dXA+REWswZJ4lWX8 wK0nDbEuOkP8IVrfD282 OrUpjGYnFhhcd9dvn0si iId0QwT7NXDzisOdfLaa FNX9s2FwNo47G71m IHdpZHRoPSIxNSUiIHZh kMpjyf4ucC4sVm7+PGNv pPU2jRZ8cY5fObEhRiB8 RAszI495ZkCzzPGb Xwiui1sqi4uxyPv2JhMp FAOqfcHtoCwfJLY0a1Rk Ok33F6KrnJycc8VcPhp5 wm70zOHce0A2gWB8 Z9KnBQHhyhhgjSMzxYej VJ7qJPAblbjdZAOddQ3a KFCrX4v0NjPfVsE6TVdh M3TpurJ9PBImoYXo JPYtuGTQqH4aotgmv1qq umyjBbJiGNAiFSu6LZr9 TLXiyBopHqCsIQE6NcF8 STJ9yKRylB2cpPmw rvcxaJ1eVvr+RSE3hQSu mKTINZ7sNfofmKA+PHRk YND4dXlhQDzbCLEbmC3p HGOkN3y6LhZfHeG8 KUfeZ3DdnkV8KLHowEUh NHLobJZImN3hgcocn5ok thoeTpEgIUVfQTx5RPv1 LWFsaWduOiBsZWZ0 SrU1QPE5xLSixQ1jsQsr ewwirR7hCji+QmlydGgg WLM2CWz3N6FdCmn5TLNm rAeaFG1ooAYfWTsd Qb2efVcjfBjiDL7hZUYt njzec048XnEqh8jeFXZo uQSmLOjxLVN0X54ns8G3 BQJoVPMsFUE6aSH1 vS1bcNhoejcgyKNyuQzm fxCgbGemLYurNXsfH399 LVBxvCxvPiTfAIy8V4Jv Iop5ZKRodSeeIN8l fTZgTGesMj2kgHkdyDgh PE5lMYOhopmhu605JmSu j1yiFJSxrQTwXDdaOID8 S88ph4W6QYDnMFHb BXQ3tOK8bZ6tyAumfoqo bGVmdDsgdmVydGljYWwt EPcaD770KUDwiTlxQoTt gDt4X4ZpZhy1PHGy oKdxOP6ikNInWYtaKo4b jGramEurKA3yYDSpjhuc g677PdIiv9yuBVAqiUTs DIbtZDJ2E04tt9X4 QKZpWJGbLHI7gBG6aZ8a bGlnbjogbGVmdDsgdmVy mLwzTVerYLsyR721RUBl cDsnPlBhdGllbnQg XThcPJc8O2QdWzavuGJ+ WG34GSNiKS08eVLuuVIi s0ebpPi6LsZgIBPmVYC8 rTbqVAume7LzQPRo U89jsPPnn3N3AWGdjHul lRHaSzCmdYP0qV6wKMjj obrmn6qhsurxJgkgo4fe xa34fB83K35gAHbq ZHRoPSIzMCUiIHZhbGln le1exN3dMq2+PGNvbCB3 yXY7sM3dCKLkEyQ7KYbx N371IgZdfSDaYesi s9bfb2vgqVk2TfZ7NMOv xpDwfWktVZT8l9XyXp33 U62yTYwuKFGfDHBqNSEr ELFsbCgzcl1hrU5w Ii8+EDZboJF3eSB1vN3p HdSxDzN0KJyrY646QvBe lVQpMgscN27rA3OcmDH+ ENAiChj7VGIejAab WW4qdKPeZWyaVw6bQSP1 WsHnUdJrSJljN3YeBMYd uvxyxyienCA1XLCyRODv sF59Bk4apLsmAMDt aMTUbI1enezbz0wargwj HzYlPYVpVEy2JFi5ZMAf zWzeXyFpEVC5VqG5FYP7 wCKyiD1usOfeqjus vL7eX1TkMIBjjcfpZf10 kS5dWhZhViK3PYtpTle+ J1eBNaXOQAyzT4wDTVWR OOnVNO6CXDjsdBZ+ GAZuTEC2zTcaYEouJPGx bF8cBEGwI5i9FcDcVuX6 KAsdA2SlDGMolkvhLt43 rH2gWbFpToE3INwg L7JstaA2CLDpvWThVZpt ABV9D07fn9C6MYSrZETp SKW0dRH2qG4mkGrbbiel bGVmdDsgdmVydGlj WPayZUguB186XGJdmRvw XvZ9WxBmVzBoXXV6W8Vv Upz8RADeyRdhMD8jjKCo VQxfHx6gaPndjUvh IB3sZURqypyrNXLxoZ1t XUByoLIxuKalGG9aVHKy dpswf150UkVpTKW1DWFq oDTwX8WryN2rFeBb OUKrASPkM6GtgOTrTVvw Q082LZudOsS8KJWwztWa P9PpOXAhnIgrJhS3p7N6 Kh5rMOGHNUTmwkhq dGQ+MKJlLLG5pAebTIho GRScbB0xQIQwU3u2EaXb XbE5ZSspG8GlKWYkgfca Pm87fP4fFiKjAtJ6 UIlsT6VfynM9BJBszCTa CZlvWIY8C05fg5Q1DFOs XHFeDVW8nJT2uZ2ikGfb bjogbGVmdDsgdmVy tLifRAilFXhoN648OSEa cDsnPkZFTUFMRTwvdGQ+ QVTsFTR3kTecADixSJVo uB0qEUHnR7g3LzHf HvP1WJgpJ8WcNXDzmwaz Pg88iL6hKaFeRgO8GTgz L8CvnrB1NMYdwGEaINuh QLN1L00ga5X2YWOw ZNNdREP7pXD6bD9wpUbp bjogbGVmdDsgdmVydGlj QIgrUEkqT796DNXewJrc VkYkCDVmRI2yqMgb dGQ+CG78wh08Z8NlGyix Egd4TNAsYBK6jRR8qF8r DIEjRUjwn7Q1vNW9D7Rd gfIxqn6mh0jrBAUq GDalK58qgVPtp8Y2AXCv nEZ1MRHytVufLdTwnD66 Oyc+UATiaEotw4EgTjne w4aqt5ppjLw1MyYo DUAgsuWjnQvlQXD6t7Do Li69N08qLUkjJCOuVLYf XZYuPXPhdOguiw6gxL3j Ii8+TNZlzOK6uYD5 hM4bSyHvDaC5UZudR343 CvUacBHdYgnfs4nix3ud wVd8EuNoDSYsdpBnuOqy PEI8a7XkRj46A9Gn cSmkd9EuFlw9ul27lYPw s2G5yHC0C3JbQGPwazkz gCZtzHpvYV7eIWAnejzw TFSegD2qKPZaR8v7 MiOtBzZ7WGlyO4ApypI8 JDKsiFGjVZXhcUPAzS9v wistn2usglguQlIbUGUn JOz4RAa6VXOwlYdi NkPfGKX1NyW7FPQ3oULc sL4yoCmjlbnpwM6bIfx+ AWv1v7svpIUcGQ8feYJ9 OI93TR12xMEqg1E3 zXG4D7ReDDHngqiwjvwm nNG3EGOjKUKwxI42Tc7p mUcoBm3yJDJkXPT2VWPp fOGeL6MbpN5zXfZo WBHyTTJeA7WizCEyMFrp Y951PNusMqB0OXZpflBw R4TmSBRxgYcgCvR5i9P3 Th7AHY09RQ89LC66 gETsh9B9xWG7K6WdEKBc sywdwagkfPE6BDRhCOTm qO93Ib3pqTufEf7jKCEm LVZ9MZPogRNzD7Zf hT8dZcAoQTYeHSEzG9Wo wWLjOVerM321YTwvXdE9 ZSKqdrOtM0HpBUPwtJud PyR2n9U7Rg3ASc82 YQ10DC58jZEvu1S1zZG2 P4GzMAXhmfpfdwbijAW1 YYViYNUmiM38El6niBwh Oj1fVAJmOOZ4YQFq yPJiN4ZbkS3tFiSeKYWe XQKpE0UmqCCbKFmnN585 POgcKqT5WULymkRvD3Nt HSOsnSdvQzX0i0H2 Cd7QOGmkqer2U4QyJjls dHI+EI16LPXvUG92rRYf qUBmz0woiPh1QdKeYDLu DCF9qVadEMaxu9Wa ZXI (more content not included)... [facility] Coding Summaryon 05-01-2023 Coding Summary HTMLBase 64 SdfnzczcTXr5rRo+PGhl YWQ+BQ6YRVYrV78pxIYa iN7bU5SBHYtTIxfkIEOG AUrQSzGmqiVdHF5mcUPi ZXJu IC8+QG9zIFOeVbtqvFXj g8A9tEP1A53pyq2cZQjw zMV4NHLkGzUzfrkax0md iTu9NSgxPrqfTcDy LQLbbS10AZK3sJ66Ij94 eQGqwCSjl2foqTx1IuUj KKFlUYI9nYgdKUxyi9Xp PBDfZ21nzIGqj9Z5 IGNvbGxhcHNlOyBlbXB0 pC5nWWljdrxjo8ajddam Mje2jj40pOLff4L8uBG4 K1BkfkB6JPKvoXLn HmlcgDTJoC4xadzhr7eh copjYqLiTJHxVGo6EGr6 TEXzeKaaPmMnFA18JZM7 HMYowaUoD0RjFBVr qSutBuW3u7V6Ip9II0FH FotwK6LPVFLJDSukkZA+ MD98ll84M7ZbMpwnNxa9 BKOkZON7vGD7rP1j QQOoIWluv8T1qKK3M4Xk xuNrsk4ke8fhSXTsLRyl A89siKLfe5B5XOPhgRO2 TPGaeWhdSyTniI80 Oyc+BFKzrAofm2ScNfzf f2agf6wqvJm5GzqhOMUx xzZltMmvFMK4k7UdPh8q KAVjaKF6bKU8kK2i JqBdCvP0MWxpQ547EtOu nQPlGtlyF07uC9KrcRN+ GLKaLrq8MDKsbYakQT6f T5UvSLUjkodrlUZw uEcgNP3rBQVirbjpEAGl fA1rNHQbF6e7HlZyPpV9 LDtgL0FiEGGhzyimCl77 qS5nDrCwTvK1CMzs A9ZxwkT6TQLwjEZpTPfj YUZ2L18pt1B1ETCvVVLj KRF1tSE2dP8rlXktrwsc bGVmdDsgdmVydGlj YWeePMteV533JBRiyTul PkNvZGluZyBEYXRlOiAg MDEvMjQvMjAyNDwvdGQ+ IPByNRC4uTuiTNQg pVYsJTtzJn8djUztmHvx FX1sGDXnfgarBQGgiS8i NIErlAZwsGnfSI3sROGs ummkr543ViGjYDS7 XUJgeKMlA8SonW9lVgJc SIVnSWOgW5FgrNFaEFwf U333POugYnQ3YIXhfoOm A3NeYXLpsJyeUvE8 a6F5Lk1Dg2CrcpcxA8Hn eTWyLsWnYcjcERo2J7Pm PjwvdHI+HV64DXEtQH46 KJx5SGD4mUshBOnm TAOiJ9EcaL9oOzFdTNDm ZGRkOyc+PHRhYmxlIHdp ZHRoPScxMDAlJyBzdHls UZ9dYx5aFVSdXCPr sEdzjBPtJuCjo5gjTTOj RUkcOM7goJfrC2FtuEM9 XUVvc6j9Dt63X21iV1Ks dXA+RVLupAN2tRB7 sN0uWzBmRtO1FXeqB284 XxBzlTSqJritn3jgv8ka wRd9ZxS4OKKxlaPguOud OLZ9x5OwJt92X45u IHdpZHRoPSIxNSUiIHZh mQmjbk1gjG5bPy1+PGNv uON5xVI5oH8jKpOjRgS6 NNlxR778KeCszBWq Zvmfn9ibi4wquXh7ZcCe YHVufcEgwSekJRE6p2Gh Gr50O1UajFwzh8YfZva7 hg73qEPhw7X3xAH1 F8BtFLHvnpzdkWVmxHhk CL0fPTVtgwhtZTAebV3z NKPfV4q5JuBpZgV1OQmr Z0BuulX1WCXesFCk IMIbeRFMvO2bhmimx4rj yceoQiRwOGCeXPa5SHk4 GGVpmZwoDzBrCYK3GnE0 APW7gKVnzP7ehZqh agijfU6nEak+KIU8jVHa wSHJCB5mSbppiJP+PHRk LLC8nZjpPFoqRASxkW1v VVUnY4z2UpKoKdK5 QBfvB4VgjsH4LRMhiUMy YFVthENWlF9cuigcb6qj tansQvZlXQRpBEq5JCs4 LWFsaWduOiBsZWZ0 MaS1BLA9hDLboL9fvMfq hoglkM2fNzy+QmlydGgg MGL1KOu4M1KdVcy2RKBv oUxnYL8luRFuVNds Gc8btHgepUdhQD8sFOVq mztrg723EyCeo6slEBWy qSBgNRfeXJF0U92tc1C1 MIRfFDPeHZO8wYA0 qD6qmIrxubqjzUGfrMhh qpKfzConXFgzHVwlL977 SJQhsXhmVxMzLPt6C4Eg Lmk4PGLacOvoZR9m pJNhFAejFu4syJraeHly EC4jSJOwvewmb323MgJp k5arJWOfuGBjCSwqRRV4 R29hp0T9PNEhWCRk WTO5uXO4nC9fxDlnkyjh bGVmdDsgdmVydGljYWwt VGssD272MLTtbWdpQyAa nAb4I2EvSjg1OOZy wZjmHC6xnSVaYRkfKz6w vYltbZahNJ8lUVHimdgr k651GlVdl7mlTWOzbXCj PTsqJXA2I07ta4S5 SWNvAREbLZY2bEQ6jR0t bGlnbjogbGVmdDsgdmVy nMiwUOjlGEcyY553NBEn cDsnPlBhdGllbnQg OTcuZJf9A3ZqIfoeeUM+ JS85IQAvAE16jCLesFBb w3zpkWm3SfIlNUChBUV2 dLqnRKahv6MdMCTe Q54cxJTzj6E4IGMolKtp fBRxXzSacRH0jH9wWDsj oejsq1vuaeujEbmyr9og cf84jT22B18dFZva ZHRoPSIzMCUiIHZhbGln kx8oaG9yPn2+PGNvbCB3 wQY2dO1hGSApWpP9JJcz Y531VdPpoLPpWpvn y0nbv3ydsOy4IsV3WBYp faGngAnePRI9t2GnOd76 A73nJNysUYZyXCXaGGLs XVTysFepfq4ekP5r Ii8+WYPhcXK2xMB1vE0o QoAkDyC6RBjgB557IaEu fAAuZfmzF70cT1IgmPN+ FIUaHro1FWEwvFlj KU0svXYuJHeqCg7tIHW3 TlRjIeGmLDuiM9DfJTZr llrsllqjkZO3JJKbLNRf bT00Qf9vnXteAFEe eQUEjY0njzigh4icwrac VfAsEFMwOQu1XIy9ZFHx bEwhEmYaEEW9XmP3LKJ7 tAWlkT4phElmbcui lP1cK4UfGDWaxrtnAb02 tZ8nDzMmIdO4FEueRkm+ J0yVUuVFXSueU5qGOZEG URvMYL9GOYmxeNO+ JZElUYQ3rXroYYpkZTWb kV8hAMOjY6v0DrJrGuF9 VGkwE1KoNKLbiuivAi32 yK5vHrCbKnV3GQch Q1JvcsQ4UWYskHKcIDuf EUT5Z74cj7O5OMKiNZCh PAC5ePG8tA4kzHylwnlm bGVmdDsgdmVydGlj JNnjSDijB943YTHyzExo SkD4PbGfBzPmHKE2T5Of Xjh4DUXjdFanSH7hsIGm SIkePc7aeQqdrJzx FN4eYSXlqajjBWVpdG3y YPJgyPCepZwbXO3jGSOj axewd372MhXlFDI2BWYk aBDcL1AlcH0bBvQg ULUeXJReK8KxrGKsUEza M044QVmqQvH1MXUvggNu M6KaINKpvAsdLxY2j8G8 Kr3cAFTFPJGhyetr dGQ+JMEsOKW5gOrpVHjb LYCqiN8eGVZlQ5i4WvLz QwY5HVjwR4RxGTJwxdkn Nk41oI4jYbEgHrI6 ZHzhB2SfqyU0MAYztFPv HGxpLET6Y36hm4X6YXAr TULnHZT1zKH6hY6kuHxb bjogbGVmdDsgdmVy fYjwICkoMVkqQ658HKZw cDsnPkZFTUFMRTwvdGQ+ PQJmLRQ9eFgmIKmbDNNt mJ7gHIXaL3a9OrUi QaW2LNwdK2VyGWSvrghj Iq63fC4kBtAsTdR2AHjb S2YpbyI1VBFtiKWxGZzh ZDA7C84xj7U1IZJc LJHzEFB9aYO3vE4ceAiv bjogbGVmdDsgdmVydGlj FSdaIQimQ517RPEbxMpq Pn0XQE10YJ44K4Xe PjwvdGFibGU+PHRhYmxl IHdpZHRoPScxMDAlJyBz hEwqMU0oIn0nNQIyXZBn pObvnZXeZwKjt2br UTKcIXsuRU4kjEuyF6Zl iVC2ZQKxy6c5Pd41P78t W2JdfDE+ZNXwlND9yUZ2 yQ6wQqBfSnS5QUlj R992SoLfnBXxJdhfy0lh y3teuHe7GnUvSLShcgLf tXrsZUQ4p6CcSx71E91s IHdpZHRoPSIyMCUi PBBtvOefcc6xfQ3zYq0+ FUGjaVG8pAA4qI5eKpCp NrI3FZvuU755GnFyuCIp DecyG09qK2HbzPY+ SEBqWmg3DQErqWrnGH5y hLZcGEasNx2qCDO2ExCl JtKoCFrtD2JaQDJkesak hspieLQ2MLXeJFVg zZ44Qn0dyDzsEi8oJOAm QLR6BNKteSEtH9PoqC0j VqHuSIUdVDGtY2LrlDAr XPrmN716ONmhBkI2 GUJzfdSgL1IxHILzmDlj KdS5r0M2Qq0HkUzivNMe SC3wUlCxSPm9Q7LvFwl0 TLPpdVmaCA4txTSg EFkeOs7hbLhgfXocEF7l ISDmrtpuc388AsVyc8fd PSJgiMPdVNdmSIC3N52c t8K4CCYwTCBuFMK6 hSZ4eN8phBanlztqsAId dDsgdmVydGljYWwtYWxp O566RKQgxHbdRsUJGqw2 I8BhYod2VMVcmXtj EJ5jgJKfTZxiCj3hjGtw mIreYF1dDEKnxxtin157 ZfCuj6fkMDHcyPHnCXmr JRW0R21gf6Z2WJRy FJCoGUL7zTA1qX9qpXin bjogbGVmdDsgdmVydGlj NVpeKQyuL247FDArqXtc Pz3LGld7L4KwLqr7 QMCcbAkyPJ9cpNEpFCvc Ai8dsHxwuWwuNJ0nCFVf xoeiv958KrFkn1gkHUIc nTKyXJjoNQJ9Y53q f5F3WZWcJAGgLED0uLD4 eE9qkUizhppyxCSlbVus qwQuhPnlQIvhSLniV224 IHRvcDsnPlBheWVy OjwvdGQ+OE46do11W7Wm XayaLbs6YSUvETG4fLU6 uT7yDMFdBNzhm5L2bFG1 W5XnckWylf1uc4sp YXB (more content not included)... Normal [facility] .Auto Diff 104-15-2023 Auto Atkinson % 8 % Normal 04-19 [facility] Comment on above: Performed By: #### 1 [id number], [id number], 0955984, [id number] #### [facility] (DEFAULT) [address] [place] [address] Baso Abs# 0.1 x10 Normal 0.0-0.2 [facility] Comment on above: Performed By: #### 1 [id number], [id number], 4570063, [id number] #### [facility] (DEFAULT) [address] [place] [address] 62381 Basophils/100 WBC (Bld) 1.0 % Normal 0.2-2.0 [facility] Comment on above: Performed By: #### 1 [id number], [id number], 6404139, [id number] #### [facility] (DEFAULT) [address] [place] [address] 23443 Eos Abs# 0.1 x10 Normal 0.0-0.4 [facility] Comment on above: Performed By: #### 1 [id number], [id number], 0736060, [id number] #### [facility] (DEFAULT) [address] [place] [address] 56390 Eosinophils/100 WBC (Bld) 0.5 % Low 0.9-4.0 [facility] Comment on above: Performed By: #### 1 [id number], [id number], 7537622, [id number] #### [facility] (DEFAULT) [address] [place] [address] 38515 Lymph Abs# 2.9 x10 Normal 1.3-2.9 [facility] Comment on above: Performed By: #### 1 [id number], [id number], 7596674, [id number] #### [facility] (DEFAULT) [address] [place] [address] 79056 Lymphocytes/100 WBC (Bld) 30 % Normal 14-48 [facility] Comment on above: Performed By: #### 1 [id number], 99127672, 3807601, [id number] #### [facility] (DEFAULT) [address] [place] [address] 23616 Atkinson Abs# 0.8 x10 Normal 0.0-0.8 [facility] Comment on above: Performed By: #### 1 [id number], 49341398, [id number], [id number] #### [facility] (DEFAULT) [address] [place] [address] 32594 Neut Abs# 6.0 x10 Normal 1.5-9.2 [facility] Comment on above: Performed By: #### 1 [id number], 08633920, 6893324, [id number] #### [facility] (DEFAULT) [address] [place] [address] Neutrophils/100 WBC (Bld) 61 % Normal 44-88 [facility] Comment on above: Performed By: #### 1 [id number], 94182057, 3105684, [id number] #### [facility] (DEFAULT) [address] [place] [address] CBC w/ Auto Diffon 4 Erythrocyte distribution width (RBC) [Ratio] 13.4 % Normal 11.5-15.0 [facility] Comment on above: Performed By: #### 7 [id number], 21522616, 1758147845, 2126257640, [id number] ####[facility] (DEFAULT)[address] [place] [address] Hematocrit (Bld) [Volume fraction] 40.7 % High 33.7-40.4 [facility] Comment on above: Performed By: #### 7 327258, 40730285, 9493784657, [id number], [id number] ####[facility] (DEFAULT)[address] [place] [address] Hemoglobin (Bld) [Mass/Vol] 13.7 g/dL Normal 11.3-15.9 [facility] Comment on above: Performed By: #### 7 842765, 74767078, [id number], [id number], [id number] ####[facility] (DEFAULT)[address] [place] [address] 81967 Man Diff? Auto Invalid Interpretation Code [facility] Comment on above: Performed By: #### 7 [id number], 96600903, 8209104931, [id number], [id number] ####[facility] (DEFAULT)[address] [place] [address] 92197 MCH (RBC) [Entitic mass] 29 pg Normal 24-34 [facility] Comment on above: Performed By: #### 7 910562, 06021659, [id number], [id number], [id number] ####[facility] (DEFAULT)[address] [place] [address] 50280 MCHC (RBC) [Mass/Vol] 34 g/dL Normal 26-37 [facility] Comment on above: Performed By: #### 7 808349, 68138571, 1432615488, 7180103176, [id number] ####[facility] (DEFAULT)[address] [place] [address] 35880 MCV (RBC) [Entitic vol] 86 fL Normal 81-100 [facility] Comment on above: Performed By: #### 7 973577, 17035973, 8515203627, 1619630147, [id number] ####[facility] (DEFAULT)[address] [place] [address] 09978 Platelet 430 x10 High 138-427 [facility] Comment on above: Performed By: #### 7 986379, 90998835, 6618469960, 5873244250, [id number] ####[facility] (DEFAULT)[address] [place] [address] 34399 Platelet mean volume (Bld) [Entitic vol] 8.5 fL Normal 6.3-10.2 [facility] Comment on above: Performed By: #### 7 [id number], 14125204, 9605961675, 8937022496, [id number] ####[facility] (DEFAULT)[address] [place] [address] 31473 RBC 4.75 x10 Normal 3.70-5.30 [facility] Comment on above: Performed By: #### 7 268556, 88284980, 3754144863, 5427551893, [id number] ####[facility] (DEFAULT)[address] [place] [address] 13564 WBC 9.9 x10 Normal 3.5-10.5 [facility] Comment on above: Performed By: #### 7 527931, 38178349, 7774211762, 0274249424, [id number] ####[facility] (DEFAULT)[address] [place] [address] 71811 CMP Standardon 04-15-2023 eGFR Non AA >60 Invalid Interpretation Code [facility] Comment on above: Performed By: #### 1 [id number], 56806771, 4562477, [id number] #### [facility] (DEFAULT) [address] [place] [address] eGFR AA >60 Invalid Interpretation Code [facility] Comment on above: Performed By: #### 1 [id number], 12821947, 7371582, [id number] #### [facility] (DEFAULT) [address] [place] [address] Albumin [Mass/Vol] 4.5 g/dL Normal 3.5-5.0 [facility] Comment on above: Performed By: #### 1 [id number], 45789097, 5442528, [id number] #### [facility] (DEFAULT) [address] [place] [address] Albumin/Globulin [Mass ratio] 1.2 {ratio} Low 1.4-2.6 [facility] Comment on above: Performed By: #### 1 [id number], 26103870, 4131624, [id number] #### [facility] (DEFAULT) [address] [place] [address] Alk Phos 68 IU/L Normal 32-91 [facility] Comment on above: Performed By: #### 1 [id number], 33371635, 5222208, [id number] #### [facility] (DEFAULT) [address] [place] [address] ALT [Catalytic activity/Vol] 34.0 U/L Normal 14.0-54.0 [facility] Comment on above: Performed By: #### 1 [id number], 08526009, 0203632, [id number] #### [facility] (DEFAULT) [address] [place] [address] 47812 AST [Catalytic activity/Vol] 27 U/L Normal 15-41 [facility] Comment on above: Performed By: #### 1 [id number], 39615098, 2732549, [id number] #### [facility] (DEFAULT) [address] [place] [address] 29813 Bili Total 0.7 mg/dL Normal 0.3-1.2 [facility] Comment on above: Performed By: #### 1 [id number], 02092455, 4061800, [id number] #### [facility] (DEFAULT) [address] [place] [address] 56950 Creatinine [Mass/Vol] 0.77 mg/dL Normal 0.60-1.30 [facility] Comment on above: Performed By: #### 1 [id number], 78008995, 6840841, [id number] #### [facility] (DEFAULT) [address] [place] [address] 89341 Globulin (S) [Mass/Vol] 3.6 g/dL Normal 1.5-4.3 [facility] Comment on above: Performed By: #### 1 [id number], 71701360, 6468354, [id number] #### [facility] (DEFAULT) [address] [place] [address] 56535 Osmolality 269 mOsm/L Invalid Interpretation Code [facility] Comment on above: Performed By: #### 1 [id number], 23834509, 3795593, [id number] #### [facility] (DEFAULT) [address] [place] [address] 29498 Protein [Mass/Vol] 8.1 g/dL Normal 6.5-8.1 [facility] Comment on above: Performed By: #### 1 [id number], 85320099, 3513944, [id number] #### [facility] (DEFAULT) [address] [place] [address] 05459 Urea nitrogen [Mass/Vol] 10 mg/dL Normal 8-26 [facility] Comment on above: Performed By: #### 1 [id number], 66450458, 3825231, [id number] #### [facility] (DEFAULT) [address] [place] [address] 48109 Urea nitrogen/Creatinine [Mass ratio] 12.9 mg/mg Normal 4.6-16.2 [facility] Comment on above: Performed By: #### 1 [id number], 99394117, 2163906, [id number] #### [facility] (DEFAULT) [address] [place] [address] 74604 Calcium [Mass/Vol] 9.0 mg/dL Normal 8.9-10.3 [facility] Comment on above: Performed By: #### 1 [id number], [id number], 2682902, [id number] #### [facility] (DEFAULT) [address] [place] [address] 24383 Chloride [Moles/Vol] 104 mmol/L Normal 101-111 [facility] Comment on above: Performed By: #### 1 [id number], 08893794, 1471859, [id number] #### [facility] (DEFAULT) [address] [place] [address] 51516 CO2 [Moles/Vol] 23 mmol/L Normal 21-32 [facility] Comment on above: Performed By: #### 1 [id number], 02906423, 8736437, [id number] #### [facility] (DEFAULT) [address] [place] [address] 97330 Glucose [Mass/Vol] 94.0 mg/dL Normal 74.0-118.0 [facility] Comment on above: Performed By: #### 1 [id number], 19681143, 7595079, [id number] #### [facility] (DEFAULT) [address] [place] [address] 91189 Potassium [Moles/Vol] 3.9 mmol/L Normal 3.6-5.1 [facility] Comment on above: Performed By: #### 1 [id number], 42127394, 1813537, [id number] #### [facility] (DEFAULT) [address] [place] [address] 25665 Sodium [Moles/Vol] 135.0 mmol/L Low 136.0-144.0 [facility] Comment on above: Performed By: #### 1 [id number], 75123880, 7670417, [id number] #### [facility] (DEFAULT) [address] [place] [address] 59372 Anion gap [Moles/Vol] 11.9 mmol/L Normal 5.0-19.0 [facility] Comment on above: Performed By: #### 1 [id number], 55374488, 5833287, [id number] #### [facility] (DEFAULT) [address] [place] [id number] ED Clinical Summaryon 2023 ED Clinical Summary [facility] - Emergency Department [address] [place] [address] ED Clinical Summary PERSON INFORMATION Name: LIA DESAI Age: 22 Years Sex: FEMALE : 2000 MRN: Acct#: Visit Reason: Vomiting - ; NAUSEA, VOMITING, 6 WEEKS Arrival: 04/15/2023 14:48:29 Discharge: 04/15/2023 16:38:00 LOS: 000 01:50 Check In: 04/15/2023 14:48:29 Checkout:04/15/2023 16:38:00 Address: [address] [place] [address] PCP: ROBERT MARRERO PROVIDER INFORMATION Provider Role Assigned Unassigned Sara RN, Sera ED Nurse 04/15/2023 14:50:36 Elsa Robles [...] EDUCATION INFORMATION Instructions: Nausea and Vomiting, Adult, Ocfw-nb-Oksi Follow-Up: With: Address: When: ROBERT MARRERO [address] [place] [address] Within 3 to 5 days DIAGNOSIS: 1:Nausea/vomiting in Patient Understands: Yes - Patient/family/careg iver verbalizes understanding of instructions given Comment: Normal [facility] ED Patient Summaryon 024 ED Patient Summary [facility] - Emergency Department [address] [place] [address] PATIENT DISCHARGE INSTRUCTIONS Patient Information Name: LIA DESAI Age: 22 Years Date of : 2000 Reason For Visit: Vomiting - ; NAUSEA, VOMITING, 6 WEEKS Arrival Time: 04/15/2023 14:48:29 Primary Care Physician: ROBERT MARRERO Attending Physician: Yassine Maldonado MD Comment: Visit Diagnosis: Diagnoses This Visit Nausea/vomiting in (O21.9) Vomiting - ([id number]) The Pharmacy at [facility] is open Saturday through Saturday from [...] contact the [facility] 29/10 Crisis Hotline -Text 3EMXW ab 481865. If you received any narcotics, sedation, or [...] With: Address: When: ROBERT MARRERO [address] [place] [address] Within 3 to 5 days Medication Information: The exam and treatment you received today in the [facility] Emergency Department were for an urgent problem and are not intended as complete care. It is important for you to follow up with a doctor, nurse practitioner, or physician?s dental assistant instructor for ongoing care. If your symptoms become [...] we can reach you if necessary. [facility] Emergency Department has provided you with a complete list of medications post discharge. Please inform your tobacco drummer/provider of your visit and for further instruction [...] other disea (more content not included)... Normal [facility] Extra Greenon 04-15-2023 Tube Collected Yes Invalid Interpretation Code [facility] Comment on above: Performed By: #### 7 [id number] ####[facility] (DEFAULT)[address] [place] [address] ED Clinical Summaryon 2023 ED Clinical Summary [facility] ? Urgent Care [address] [place] [address] Clinical Summary PERSON INFORMATION Name: LIA DESAI Age: 22 Years Sex: FEMALE : 2000 MRN: Acct#: Visit Reason: UC - Nausea; NAUSEA Arrival: 04/12/2023 09:25:14 Discharge: 04/12/2023 09:56:00 LOS: 000 00:31 Check In: 04/12/2023 09:25:14 Checkout: 04/12/2023 09:56:00 Address: [address] [place] [address] PCP: ROBERT MARRERO PROVIDER INFORMATION Provider Role [...] Follow-Up: With: Address: When: ROBERT MARRERO [address] [place] [address] Within 3 to 5 days Comments: Diagnosis is history of nausea vomiting, during . We provided you with medication help with nausea. Keep hydrated. Eat light, over the next 24-48 hours, soups, Jell-O, avoid heavy meals. Follow-up with your own primary care provider, or your COURT INTERPRETER physician in the next 3-5 days, for reevaluation. Return to the emergency room for worsening symptoms or concerns, worsening abdominal pain, worsening nausea or vomiting, spiking fevers, acute shortness of breath or chest pain, or any questions DIAGNOSIS: 1:Nausea and vomiting during Patient Understands: Yes - Patient/family/careg iver verbalizes understanding of instructions given Comment: Normal [facility] ED Patient Summaryon 024 ED Patient Summary [facility] ? Urgent Care [address] [place] [address] PATIENT DISCHARGE INSTRUCTIONS Patient Information Name: LIA DESAI Age: 22 Years Date of : 2000 Reason For Visit: UC - Nausea; NAUSEA Arrival Time: 04/12/2023 09:25:14 Primary Care Physician: ROBERT MARRERO Attending Physician: Oneil Salomon Comment: Patient Education With: Address: When: ROBERT MARRERO [address] [place] [address] Within 3 to 5 days Comments: Diagnosis is history of nausea vomiting, during . We provided you with medication help with nausea. Keep hydrated. Eat light, over the next 24-48 hours, soups, Jell-O, avoid heavy meals. Follow-up with your own primary care provider, or your COURT INTERPRETER physician in the next 3-5 days, for [...] these instructions at home: Medicines ? Take tnjo-mgo-awghcbx and prescription medicines only as told by your health care provider. Do not use any prescription, cvxd-sqj-gpbaiuq, or herbal medicines for morning sickness without [...] to yo (more content not included)... Normal [facility] 024 Urgent Care Record [facility] ? Urgent Care [address] [place] [address] PATIENT DISCHARGE INSTRUCTIONS Patient Information Name: LIA DESAI Age: 22 Years Date of : 2000 Reason For Visit: UC - Nausea; NAUSEA Arrival Time: 04/12/2023 09:25:14 Primary Care Physician: ROBERT MARRERO Attending Physician: Oneil Salomon Comment: Visit Diagnosis: Diagnoses This Visit Nausea and vomiting during (O21.9) UC - Nausea ([id number]) If you received any narcotics, sedation, or [...] With: Address: When: ROBERT MARRERO [address] [place] [address] Within 3 to 5 days Comments: Diagnosis is history of nausea vomiting, during . We provided you with medication help with nausea. Keep hydrated. Eat light, over the next 24-48 hours, soups, Jell-O, avoid heavy meals. Follow-up with your own primary care provider, or your COURT INTERPRETER physician in the next 3-5 days, for reevaluation. Return to the emergency room for worsening symptoms or concerns, worsening abdominal pain, worsening nausea or vomiting, spiking fevers, acute shortness of breath or chest pain, or any questions Medication Information: The exam and treatment you received today in the [facility] were for an urgent problem and are not intended as complete care. It is important for you to follow up with a doctor, nurse practitioner, or physician?s dental assistant instructor for ongoing care. If your symptoms become [...] of medications post discharge. Please inform your tobacco drummer/provider of your visit and for further instruction on these medications. Any specific questions regarding your chronic medications and dosages should be discussed with your primary care physician(s) and/or pharmacist. New Medications [facility] [address] [place], [place] [id number], [phone] ondansetron (ondansetron 4 mg oral tablet, disintegrating) [...] is not kn (more content not included)... [facility] Coding Summaryon 03-06-2023 Coding Summary HTMLBase 64 VocpzasnOMv4wEz+PGhl YWQ+EK7WUJDxG10mbXBt lS7nS8UVSQkVDrqhONOP WGdFJgOxglHlAA2wgVPl ZXJu IC8+OI5bCHEmXemhkHCm n0Y6jZH0I06ewq4eVHmd qUF1FPPgBdUoeyfto3vy oJz1GWzuGxnnFvAf FAPbpH17AKU6kX47Iz14 oVJqaHBfx1lsxXm4FbQm OSGzEKC4aWjxEUjkg8Az HKPlJ44txRWkv1S5 IGNvbGxhcHNlOyBlbXB0 eN3dNUnkjadur5cdwmnn Duf0da66kWDxh1L3nZO9 G0DifjD9SLXocYOt TqzfhOSGhM7lkutjf8nw xephDcPyVOSnKCb8VRt8 ZJBscMbkOaZfZY01APV8 HNJrlcHhT8WlFTXj jNplVvS3w2V6Vs2CY6TJ FdoaQ2LXLCQXMEnmhZT+ VE85uf05K0TrNjhrTer2 GRWqJXA2bTI6tA9i NBTtWNozm5I8qIW3B0Xy gzQdyc7jh7flUWXlMAbo Y43bqFIks2G7FLUikZE9 APDyfUfpOtTgfN83 Oyc+NLJyfMrzw2FjRltj x8nfn7zjzRv2QiwuHPVy dbJvpGqwNAF1u1IaIf3b AUOuvXP2bDE1iB4a UiVsBaV3UNivK192SgSd pLBoYqyrZ15vZ3RdaIA+ AFObQdw4BRFlwOtrSL2l C1SuIJKergbqvQWf qMccVZ9fXVSfjnhnUYNb aV2lFQThB6j0HqCrQkI3 CXqoM5FuXJStywzzVz69 kS3qTwPqDgN1ELrm L1NsvcA7HZYksTYaTCak VFX0L53go0J2PRRdDUBz HTP6cSH3aG7sjUqdulks bGVmdDsgdmVydGlj TXfqIYyuP042TTSznAhe PkNvZGluZyBEYXRlOiAg MTEvMjkvMjAyMzwvdGQ+ VIAzHDK6tWyuVNIp rSYzWCevFo2saSfahHls EG5rGGDjnwrpLNTylM6i YFDgcJXgkZsuZI5jGWMk nqlri310ObNnIAQ7 SEObbLUqR7MrnC3gBsWq RIZyDGWnY2CgjHWcIXqi C170FYzvEwL5SRHxejJi T5SrBYRamAtfEfX9 f6T9Bf6Np1TjrdkyH1Us aXVmBmMwDisoUAd5W2Rt PjwvdHI+HW37UERnRQ53 VTi2DJF6eHjePPme BHJmO6VcyG0aKtSbPNIv ZGRkOyc+PHRhYmxlIHdp ZHRoPScxMDAlJyBzdHls QJ7dPe0rFXVgAKLe iZctoZChRaMla6iqNWAe ZAkfAK7zgLioZ8FqdFB5 IPDri4c5Kz38F56wQ0Dy dXA+DZZdrVT2gFT5 wR1mZiVzIhH1DMiiC068 DrVtaYKkRcqur6kgi3rr gNu3WoD6JMXkspSbpQpr ASW9s7XuHo36H22b IHdpZHRoPSIxNSUiIHZh qVuhdu9urM9cKz9+PGNv fUU1nOZ1aP0oQiSzIkP4 SNjtG352MiHsoNAz Wtfrr9gpi4hdiPv2QuRn RWSoruVlbKdpTQA8b9Kj Gx65U4PhzKpwh0EpTzv2 wk99jFPtz1C0jVE1 S3BcGVNfbkyqhJVuzYkm OQ9eNJKnyjtdLYMoyZ3q YJZhI4e8UaRhHiN6ZHdc S4OkioQ9GSNogGJc XEClrGWChX0xkuvwd1of iftxZpYpQMNvAMe2OKk1 LMOkmFquVmBwRBC5SlM7 FTC4dRWtnF2pzRtw zlwrfZ3lQyl+TXI7gKJs jGZFLL1wJbxxyPH+PHRk BMM7gEqfLJsyWCRosG5r DRWpR7t5NiYqOiW2 YPnsR6GvocM9QUCgwRPf JSBakCHYkI0sfzyuz3yx psdxBlVqEHZkWZi7QOm0 LWFsaWduOiBsZWZ0 PaH7FDD4tZZxfF3dwTvd atptwA7wWmd+QmlydGgg TXA4BKh9E8SjZzb3TTAy nEeuSU1dxTVcFVan Ne1bbFuapTvsOH5dMMNz qpxsh580KdFbi3gzFTDn jTCrKRfxHWN3V62es5M5 WJKcJGKlABZ4uGT5 kM4xbJymgqjwrAThlYtm zkOgmPjzJXnyABjeB660 LHZypZizGuEyNEw4K3Fk Gsh9AVWstGlnNK8l hXGfHWeyPo9hwSsimFvh GS0xVQTzmerhs601PpZj x3msMQXseDEyEXfuZVA8 U12ja2S0NZVpIYBt LQK2qPD1qI5hyYbtcjey bGVmdDsgdmVydGljYWwt DObxI861JTJlpKgsBdOd jDo0X3DgPea1JOGh mEybSP5ojCBhMHodRc9t qIqsqRqjCK2dHDFtjevq e890JtAbk4stTSWrwDDp VTgvNFF4V70rj3N2 FRPvRKJdJKZ8yIL4hH4i bGlnbjogbGVmdDsgdmVy fNmfTMjmOPumW388XGRw cDsnPlBhdGllbnQg OOqoOQp2Q4EgHbbcmDR+ KD00FOKkFY92ePVqwMNg p7aqfCu5CsVtBENeITT6 mUmuRYvhq8OjVPWa U72ceYWgl9K2AVJxsTgk dBVcTcKcrTT9gT9oLDtz ilamk2alkgmvQjwpz9wf xj37eZ27S10vWEha ZHRoPSIzMCUiIHZhbGln uk1xqG7vMr8+PGNvbCB3 pUZ5uJ0uMLBtOyF5VCec Q705TqLoiYRpTtnn u5awj1rndWt3HtY4ISHa ddCjvChmTRA0f0ZnSy04 A51nGAxxROFyIMFvWIPd PMAvuVtanj1vsM2w Ii8+QDCgrMI4cCW9aT4e ArJqWbP1NGqcZ764VcOu oSWuZxmdE47dP8PbjCR+ WEPwFvd1MUFsiVhj QQ0zuPJsVQwvCt2vCZA9 GrIzWhXaFHeaB0LpFNYx uyieomfirMB0YJPnCUTh uV65Xk0pdSymLHDn rNHNoF0ksvtxe3ckdejj DfSvYWZvFJe3OYl3YPZv bLapTkTrRGA1ZhL8GRW2 vICquK3dmPdgvqyz vJ6xY1HgWMVrzzxxGg08 dJ3tHwQpTzB5CKrtQfv+ N2uMAfCUVQmbW8sJZEJC LFsJCU6DLIduaAQ+ NYWiTAO8nScdCQihAJJp mV6kNVCvK6u8XkGbZhG7 BUvpI7NtSOAkasuqXx96 rF0eIsNqGgK5WNsf E3WiefD1THSoqSXmONna HFV8W40xb3N2GVOaXIVf PSJ5bDY2mO5itMtidftc bGVmdDsgdmVydGlj PNysAKupW895QDEbeYvg HrS4XzCwBvQaDFC8I5Px Eag7EDHisQwcTG8wkSUx KLwoNe7duCyniXeo LF8cMKTymbgqNTEgeV3o YAQczGGliJrjQU6aBHDg gikbp515FfNnLKF8VZVb fFGrY5OmoJ2sNuDn PTYfMELpU7EsyEXqSIcz N212TXfmHiF7KYYeggCs V3BfLZMngNzpAvT8t3M1 Sa6wLBDKWYVqwaca dGQ+OKUlNUA0qImeEWbg TDHaoX2aONJlQ8g3JmJe DrY6OOjyM0PmOFInauxe Il11dB2tMdItAsA3 ANahS7ZqfzR5VELnmJUh QTqcABP4J58bt8E8GNCo FAVmFOL4gCK7iM7yiEhk bjogbGVmdDsgdmVy bOuqROufUIqzT054VEEg cDsnPkZFTUFMRTwvdGQ+ GUKjMAU9mYxhULmvBXQr jU1uBTQvL6p1FvPs ZgO3ACcxQ3YrJZSokkbz Pz60vT7yElVfPlB0ZDrr Y7BoatB9YEUlqPSeJZzr THD8Y67ss4L8KNVw NRXxNQU9dMF1pM6bpIvy bjogbGVmdDsgdmVydGlj DDouAJbuW091IUEmdWyy ZmYbHHLqNX5boXdw dGQ+MA79aw25X4KwWvva Cel3UIQjLPU4mEE2rX0b RLZsVTdza3A5pVY0J3Yo bvOmtl9ax1jbRUYf KCokP01cvYLfr1F5JFRg sKX2TDBtiSdaJaEjnN56 Oyc+YPVbwLbex9UqBtsk a8ykw1oabEo7JmVl ZNIcjpGtbSmeCQX3i1Yq Cq19B83vLJczKRQfPXJk ELUdQTEzhPuapx1btR4n Ii8+FHXzrFB8zSZ7 kO7kVfYkFjS3NEqmK301 ImSxdWViOsnvi4ror8sv uNm3NiStMXNpliCnlUlz BEA2n2ZgQo01N5Wa sZlul4GyIdm0ox79yGPi p1V4nFS5R1CxYNOechie zWOqhMbeIC7tFUNzsmyi VPNkeY4sYGEhM3d2 CwBkBbO8KBzhR3MxqhN4 XEKdsJOySGNmeBCMnB5t gncsk8kevtucVoMxOZQv QHk1YIn2YVKtbGxk YxBcTOM7KwQ0AED8fUFp nY7slMunyuiueB1gHqg+ VKr2y5vbsCRwOG2imKX5 BN30JI38wSAnb9Y9 bKP7W0NuHLKzoxdawqxz hBF3WMDhWALkfQ56Oe3z oTrbUm2lOMAeATV5PGUq rRDmJ2PadD0jKeTc IDMkDGOdT5CgeLOuESys H586FRxrCmT4GETkcdAy C9YiQYBhlKptSmU5l0V8 Sv5NMV05FF82VB28 sXQdc3S1lPE7T4PqLBZg gzhdedokuHR3UTPeTTMs yC14Zu9pqZqeMg6nCASh KEO6BSKmiZNuB9Jo bG9vCeMcPICoRSOmY4Qy tLXnYRnwK194YAsjCfZ7 SHDkduUwF8PbSVIfqSxv KpT6b8S9Fa3EFb48 LB17AC30bWErx8S1wQY3 Y7MmPXGnicbvydyiqMK1 VFDzUHOozW39Pz3zuMbi Tg5oUHLlCON0WSPh tRAiF4YlfW4oFlGkIPNi LWGrF0XhhSApXWrhQ955 GYjeFuH6MYJsagWmB8Gc KYYaeKpbRiN2s1H3 Id2WZYbabmb2N4CxWocz dHI+AJ45JKYiPD42rYHl lOKjy4fyxDk1TqWxOJGq IPJ5rOpiAYdxb2Vk ZXI (more content not included)... [facility] Coding Summaryon 03-05-2023 Coding Summary HTMLBase 64 JnjoifleLZc6pKx+PGhl YWQ+VO8PFJKjA43raWTf sX4jU8LUPYeGHfttESRW CWiMIeShrsXhNZ7nxICs ZXJu IC8+ZT9fQAJjWiyzjXMs i5F3yXC6M99krd7dNGlm tPU9DAUmBxZtypchr3ug xSy3UNqtOzqhJuXm YQUijE44YSP5fY94Ev80 dBZmmSKll1rlyFc8JpWe LBOoRKD6wKxcHCrws6Zp JOXsY01izJBek2B8 IGNvbGxhcHNlOyBlbXB0 iG0dJRoeiltbm1gfxymn Iyr3as70jBKfv5T1sDP2 U5TmvzO5FRWezKPw CazmyYBRrN9ajdxhv1nq yihxAjBeBMPrMPx9OQt7 VROdvNocUqVlGH53CFF5 VGKcqgSpB6NoKKZm yKlwZiD8l0T6Pc8GA5MH QatoB1BVRZVBSRksyIW+ MC73ua35W7NcIvddLle4 VSOgZRY8rFD1jF4p QIRdZVjqs5V5iXJ7V3Me fmQtop1vs7knOXHmUTjz W39pjXDye7H8SZItdAJ1 VKJyjLqwZbPyzU51 Oyc+BOJgfAguo5UaPlll j2jen9tnlHa9XlsdSOXi xfRytFcjAVJ5e9CiKj2r VZXlbAG6pYY2bE5g QrQaJsT7UFkzE426WpMu vNYkYqlvY93bD2IzwMM+ FWAaGsf3SFRzaHcrEV4f Z4IuJPUvhnzeuCKf bRkcHK7rJTKdgixwCCEk jX6sKFOmE9n8YqKhKzM2 XDriX1MzAWAlxezhId72 xY4pPuMxNsY5BMna W8OcgrU0WQPmaWXcRUex UDD6X21ph4G2ACUgJONm WKZ5rEX0nZ8emXgxantr bGVmdDsgdmVydGlj LDnePAzsT728WUMftBee PkNvZGluZyBEYXRlOiAg MTEvMjgvMjAyMzwvdGQ+ PALjTNV9bZvgJBYu yIEtZYrhIi1fgSzfiNtu BE6mGHWckwjhDEEigR5w JIBcnJRykNijOT2uMGQk zoslb411VxRiLWW6 FIEklQPpN7CncI9iTlCb AWZaVSXdF2SvgJTtUTai V003KCdfBaM1YNWswrDo P5UcKKKfuGreRpM6 y8V0Bg4Wd1FlqihjM7Bo hOWaQnFfBxzdCKi1Y4Rf PjwvdHI+VL78CEMjQC65 DUq7LOR8aYhfRXxs UAObB2CquM9xRxHfXXAr ZGRkOyc+PHRhYmxlIHdp ZHRoPScxMDAlJyBzdHls WK5mLn3xRGOfKUEr wIzsaMVhGfPtm5aoLJGb AIhwAR0llJbiN1VjuBP0 VHEpn4o8Qe07C80iW6Lw dXA+KECnsEM6xES2 oA7kSjExWrG4WSllQ258 WrCmpHVaHbuyj3edt1zz aNx9XqI4RPShlbSxbJts CON0b8RiTq48O21d IHdpZHRoPSIxNSUiIHZh kJfqgn6nnH5oVe0+PGNv pAL5rHG4yT3pCjEwQgN8 XAgcN109RpXzaIZc Duqjp5dpd8jsjGc3KyQb PUApxuGvuJpyZPI2o2Np Tj99M5HfbHrkr1GzWfz8 ai33pSZsa5J4pLD9 R8MbBDImyybosAGtuKxu RR7aLSGesmvuWRCwhT3f XPNbT5k5DkQrYjT7LIfc R5XfyqF0KCPdrUFr WBLexLTTfF4pybfsy6uu idfgNiTuOEHaSBj7OAa1 YEHygFqgDcIkYIB7FdV0 LZY9cRBsrR0cvHqw wqnsdE8tVsd+EFW4aIWg iCPKBB3cPmoauMQ+PHRk OEV3bJtpRQlgAMIpwB4a GMNpR6a3CxGzXxW5 VBfdW9ApcyK1ABKmtINp KAEyzHCTaO8pkdicl5tw rrhcEbUsOFBvLAy0XKs8 LWFsaWduOiBsZWZ0 WwK6EGD0lKSprL8tqLzd nywbcS3lPje+QmlydGgg CFM1LCa0C9IpLnf5DAPh kZguSX4jqHLeRTck Sa7hlPxduMwnIP0kRKYg rhqec791FrGam4dpVXXq vUMbZLrePBE4Y10oq3L6 BBPsDAWfZTE2rDY7 iA3pvNimwkrreTLuuPht oeKvzNznEIdmXFphU809 ZECbiRqgWqDsITc9O2Wk Zcb8BMFpoJscPO5e sWQrOFgqWc5rgPpxzChj VV8pCAFysmrmu278LgNr f4dqJYBmoSJuLJrzNJV6 X15hp8Z2GPSmTGHl XFV1cUA3mJ7eeWifjfvp bGVmdDsgdmVydGljYWwt OCpoT637SKVlbHgmPqDe uRm9N8AdQsb4YVWe zLzyVP4txITjPBdaXm0u wGsisVuuLF3iPAGcmcpj n020PgKil4ieWTMrpEYz HIpwXVW9E46hu3T8 WWWaHSMiLST1tMJ0cL2b bGlnbjogbGVmdDsgdmVy rHatUCfePMgqY619OJIr cDsnPlBhdGllbnQg DZehYAv1Y9HcDwjivVK+ FR47AMCpLT10eIGzzOWh z7wcwGs7WyHcESIyMHG3 yNgzMGqzk1SbTSXk K91njNPab7U1RSEwrBbb lUViQcWpjOV1zU1sSHtn rlivn3yfvhflIwbbv9if pu82mD07E11mUEwq ZHRoPSIzMCUiIHZhbGln ec9hhO1tYp4+PGNvbCB3 eRD3wC3wKZYeCyG4XOxi W422OvAmhGPlEcmn y9bbx9ohiHe5ZkD4QBIz emFowMyhLYU0l7ObDc80 E75eVEmcBESuRDBqVBNj MWEtuIdvcp1qxD0m Ii8+OKEcgLV7jPJ3zD8z BcJhWjA6UBlcP957PoAj hQZcNxfhA43lV9VddWW+ SBJpRpn0BEPqoUkd CH4owGAlAVonYw6tKUX7 ZpQmQlTvPThcA7LwRVCe ktnfxuzlrRQ8RCVsEKKz bV99Xr8lzThpIPOs hVMNiG1rthark3birgfn ImZwPUUcMNf0THo0ZBVl bUpaLiOwJDT1TbH3JIN3 gZGvaI2drYjcgdzw lI4tL9AxTVApbnvpRh30 jH1iIhZdRyK1CYskFkw+ H4wLOgVSSAisN3bGDXTN AFqGYJ2HPFvojRZ+ RRAnQAR4jKyvQWsmTJCk uS1zUKXtO4r7JnGhDeH5 TMruJ0OuQZIyhxlgSr04 bO4oIpRmGtU7FSqh N9KqtfV5GNSzjMXhVQmh KMD1J70sf7L7YSYmBCKv GZQ5vUH8lV1spMsdffvi bGVmdDsgdmVydGlj OCzgIHluE744LYTiwQjg PvZ1NcIuTuDuTBY4O0Yu Avf3YSSxmXoqON8niLAq YJgjGo6kqJnodXva FZ2vKPZqhcijCGCexQ3n UNXovKVlqZgkUA2aOAKd yerio964OtYaBYL7QNYe dVPhE7YxlJ2eOyUi KBFtMZOvN5BksUNvUHdb V702JWddKlO9SKQxtsGr Y5TyZVInmDsrHpL0o9Z3 Dh9lKZSOTXGeilpm dGQ+LAHgFRC8gKpoMMwf SZZmiO9eSHEpQ5n6KhMn FfI2LSvuJ6NpSAMrumnm Je14uQ5dAbTtKjK6 WCwrS2CahhC6YCInrCZz YLzeVEH2J79xt7B1MZEt JKLeWGB4gMD3vD9xfSnu bjogbGVmdDsgdmVy xSpzIJywHLhoH056BWWp cDsnPkZFTUFMRTwvdGQ+ AYYqAEL8gAsmORbgIEYm bT2lMRZmF0o3SzXm LwG6SOcmD6WwYDVdwarv Ry48pQ3cYdNpNlJ3TYxh N8UhuuQ3OUEmsNLsASwm UAQ4B84jo9X5SQHk NXImQKS2zFI4iL7ceVck bjogbGVmdDsgdmVydGlj JYnfVJywN060ROKhyKbr Zz5CGB33HI15H2Bu PjwvdGFibGU+PHRhYmxl IHdpZHRoPScxMDAlJyBz qZwcKU0mLu8tEQZmYDYl uUeftPYkNiUpt0ki TFPuZTjtLX3snDcyO1Go oQQ9GRZyv5p0Ud59V61n P0JeeCK+XRDznQP6dRA8 aT3yLzNgMuG7RFtv C712FzYvpUFqJqjvl2vx m7cfrIh9BfZiQWJlcmIv cUuuZID5m8BkEt41F43q IHdpZHRoPSIyMCUi TZBckYstmq4keH9fNg6+ ERVujZP3nGW6kJ4qEaPo EkM7OFruW830CdRtzOLn PdvjK27jU7YfkJJ+ DZAaNaz9AUCwgVdnFM6w dYYfVIsnRm2wLSM0IqXl TqCjENqyN1ZbTZRfesea fdxnvJG7XVRmLTBq hE65Vl7upAllZl9cWDPn SKC2RQOkrANuU9PqjM1g AkXvSJSuFCHiE8AyrDDi XCvrU099JRsyLdQ2 YJOwnwXtT2YmRAQeqTqc YwT9u0R6Dm5PuSdvuDKf HY5rVxJzIXx9G0NfAdm4 YREotNntWU3lhBXm GKjkXe5rxWiuoAzhCT2j CSRpjtwmy372ZxZle9fs EWBqaFWzFAcsZEK6U58l s0N5GVLkYQHnHZL5 fVL7bP1syXcobeeyxZCy dDsgdmVydGljYWwtYWxp D184VRTknGdqZrJUWnl8 V0CuXaq7SENwsYyo HM7doZKtEKkaOd9bfOzj aBvqVQ2cFEWbavhzq912 VmKxi9teHNNhiBRhTJpt ZXG7O62jp8B8YHRa DDVeZDF7oWT6rG9ihYjn bjogbGVmdDsgdmVydGlj JJrtWGqnD553XZHyiXns Hr3TOhv8L6UeTof5 TCPdkIxbUZ6cxQLhVVpt Fp9qoLlydLjeHC1vNGGp uldgf038ItRob3xlSHXv lCPeVFplIMK9U01v v4U3RBUuFLIsSNC6aVH9 iW5gcNwebqzdsYZtgKci rsZzmPaaIFvsRMixF508 IHRvcDsnPlBheWVy OjwvdGQ+XK61gf49J1Sx YeevOhj8OCPtHRS5vNN0 mZ7mYMXkRLpuw9N4bVB5 S3VkznVypk5wb3gl YXB (more content not included)... Normal [facility] C Throaton 03-03-2023 C Throat Ordered by Radha. Normal throat jonny isolated No pathogens isolated [facility] Comment on above: Performed By: #### 6 [id number] ####[facility] (DEFAULT)[address] [place] [address] .QC SARS-CoV-2 (COVID-19)/Fl u/RSV (GeneXpert)on 03-01-2023 Internal Control Pass [facility] Comment on above: Order Comment: Order ed by Radha. [[email or web address]] Performed By: #### 6 [id number], [id number] #### [facility] (DEFAULT) [address] [place] [address] COVID/Flu/RSV (GeneXpert)on 03-01-2023 Flu A (GXpert COVFLURSV) Negative Normal Negative [facility] Comment on above: Performed By: #### 6 [id number], [id number] #### [facility] (DEFAULT) [address] [place] [address] Flu B (GXpert COVFLURSV) Negative Normal Negative [facility] Comment on above: Performed By: #### 6 [id number], [id number] #### [facility] (DEFAULT) [address] [place] [address] RSV (GXpert COVFLURSV) Negative Normal Negative [facility] Comment on above: Performed By: #### 6 [id number], [id number], [id number] #### [facility] (DEFAULT) [address] [place] [address] SARS-CoV-2 (COVID-19) RNA MILY+probe Ql (Unsp spec) Negative Normal Negative [facility] Comment on above: Result Comment: Perf ormed by PCR methodology. Performed By: #### 6 [id number] #### [facility] (DEFAULT) [address] [place] [address] ED Clinical Summaryon 2022 ED Clinical Summary [facility] - Emergency Department [address] [place] [address] ED Clinical Summary PERSON INFORMATION Name: LIA DESAI Age: 22 Years Sex: FEMALE : 2000 MRN: Acct#: Visit Reason: Cough; Throat pain; COUGH, SORE THROAT Arrival: 03/01/2023 14:12:36 Discharge: 03/01/2023 16:04:00 LOS: 000 01:52 Check In: 03/01/2023 14:12:36 Checkout:03/01/2023 16:04:00 Address: [address] [place] [address] PCP: Provider, Unlisted PROVIDER INFORMATION Provider Role Assigned Unassigned Soniya Strickland MOTOR CARRIER INSPECTOR Nurse 03/01/2023 14:14:28 Tom Smith DO ED [...] verbalizes understanding of instructions given Comment: Normal [facility] ED Note - Physicianon 11-24- 2023 ED Note - Physician Patient: LIA DESAI [...] Resolved Disease caused by 2019 novel coronavirus ([id number]): Onset on 11/23/2020 at 20 years. Resolved. Comments: 11/23/2020 CDT 16:07 CDT - SYSTEM Problem added by Rule (IC_COVID19_AUTO_PRO BLEM) following 2019 Novel Coronavirus (CoVID-19), MILY L from Nasopharyngeal Swab collected on 22-NOV-2020 16:44:00 EDT tested positive for COVID-19. no history (160018856): Resolved. Contact dermatitis (94620257): Resolved. Pharyngitis (4181314904): Resolved. Cough (84229067): Resolved.. Surgical history: Tonsillectomy and adenoidectomy (227391188).. Family history: No family history items have [...] any worsenin (more content not included)... Normal [facility] ED Patient Summaryon 023 ED Patient Summary [facility] - Emergency Department [address] [place], [place] [id number] PATIENT DISCHARGE INSTRUCTIONS Patient Information Name: LIA DESAI Age: 22 Years Date of : 2000 Reason For Visit: Cough; Throat pain; COUGH, SORE THROAT Arrival Time: 03/01/2023 14:12:36 Primary Care Physician: Provider, Unlisted Attending Physician: Tom Smith DO Comment: Visit Diagnosis: Diagnoses This Visit Asthmatic bronchitis (J45.909) Cough ([id number]) Throat pain (222547699) The Pharmacy at [facility] is open Saturday through Saturday from [...] and/or drug addiction problems; contact the [facility] 29/10 Crisis Hotline -Text 4HJQR jz 126306. If you received any narcotics, sedation, or [...] received today in the [facility] Emergency Department were for an urgent problem and are not intended as complete care. It is important for you to follow up with a doctor, nurse practitioner, or physician?s dental assistant instructor for ongoing care. If your symptoms become [...] we can reach you if necessary. [facility] Emergency Department has provided you with a complete list of medications post discharge. Please inform your tobacco drummer/provider of your visit and for further instruction on these medications. Any specific questions regarding your chronic medications and dosages should be discussed with your primary care physician(s) and/or pharmacist. New Medications [facility] [id number], [place] [id number], [phone] albuterol (Albuterol (Eqv-ProAir HFA) 90 mcg/inh inhalation [...] Adult Acute bronch (more content not included)... [facility] Strep Aon 03-01-2023 Strep procedure control Pass Normal [facility] Comment on above: Performed By: #### 6 [id number], [id number], [id number] #### [facility] (DEFAULT) [address] [place] [address] Streptococcus A Negative Normal Negative [facility] Comment on above: Performed By: #### 6 [id number], [id number] #### [facility] (DEFAULT) [address] [place] [address] C Throaton 02-28-2023 C Throat Ordered by Discern. Normal throat jonny isolated No pathogens isolated [facility] Comment on above: Performed By: #### 6 [id number] ####[facility] (DEFAULT)[address] [place] [address] ED Clinical Summaryon 2022 ED Clinical Summary [facility] ? Urgent Care [address] [place] [address] Clinical Summary PERSON INFORMATION Name: LIA DESAI Age: 22 Years Sex: FEMALE : 2000 MRN: Acct#: Visit Reason: UC - Sore Throat; SORE THROAT, CONGESTION, BODY ACHES Arrival: 02/26/2023 09:55:01 Discharge: 02/26/2023 11:28:00 LOS: 000 01:33 Check In: 02/26/2023 09:55:01 Checkout: 02/26/2023 11:28:00 Address: [address] [place] [address] PCP: PROVIDER INFORMATION Provider Role Assigned Unassigned Errol Ortega ED PA 02/26/2023 09:58:25 Birdie James MOTOR CARRIER INSPECTOR Nurse 02/26/2023 10:17:32 VITALS INFORMATION Vital Sign [...] verbalizes understanding of instructions given Comment: Normal [facility] ED Patient Summaryon 023 ED Patient Summary [facility] ? Urgent Care [address] [place] [address] PATIENT DISCHARGE INSTRUCTIONS Patient Information Name: LIA [...] to help relieve symptoms, such as: ? Gnnw-sxc-bxrchom cold medicines. ? Cough suppressants. Coughing is [...] other clear broths. General instructions ? Take fxix-gtn-ahnodbx and prescription medicines only as told by [...] infection to other (more content not included)... [facility] POCT Rapid CoV-2 (COVID-19) Antigen/ Flu A&Bon 02-26-2023 Influenza A POCT Negative Normal [facility] Comment on above: Performed By: #### 8 [id number] ####[facility] (DEFAULT)[address] [place] [address] Influenza B POCT Negative Normal Negative [facility] Comment on above: Performed By: #### 7 [id number] ####[facility] (DEFAULT)[address] [place] [address] SARS-CoV-2 (COVID-19) RNA MILY+probe Ql (Unsp spec) Not detected [facility] Comment on above: Performed By: #### 0 [id number] ####[facility] (DEFAULT)[address] [place] [address] Strep Aon 02-26-2023 Strep procedure control Pass [facility] Comment on above: Performed By: #### 6 [id number] ####[facility] (DEFAULT)[address] [place] [address] Streptococcus A Negative Normal Negative [facility] Comment on above: Performed By: #### 6 [id number] ####[facility] (DEFAULT)[address] [place] [address] Urgent Care Note- Provideron 02-26-2023 Urgent Care [...] Resolved Disease caused by 2019 novel coronavirus ([id number]): Onset on 11/23/2020 at 20 years. Resolved. Comments: 11/23/2020 CDT 16:07 CDT - SYSTEM Problem added by Rule (IC_COVID19_AUTO_PRO BLEM) following 2019 Novel Coronavirus (CoVID-19), MILY L from Nasopharyngeal Swab collected on 22-NOV-2020 16:44:00 EDT tested positive for COVID-19. no history (240358477): Resolved. Contact dermatitis (11002245): Resolved. Pharyngitis (6253702845): Resolved. Cough (10265300): Resolved.. Surgical history: Tonsillectomy and adenoidectomy (154342408).. Family history: No family history items have [...] collect, Neha (more content not included)... Normal [facility] [place] 023 Urgent Care Record [facility] ? Urgent Care [address] [place] [address] PATIENT DISCHARGE INSTRUCTIONS Patient Information Name: LIA DESAI Age: 22 Years Date of : 2000 Reason For Visit: UC - Sore Throat; SORE THROAT, CONGESTION, BODY ACHES Arrival Time: 02/26/2023 09:55:01 Primary Care Physician: Attending Physician: Errol Ortega Comment: Visit Diagnosis: Diagnoses This Visit Myalgia (M79.10) Other viral agents as the cause of diseases classified elsewhere (B97.89) UC - Sore Throat ([id number]) Viral sore throat (J02.8) Viral upper respiratory [...] received today in the [facility] were for an urgent problem and are not intended as complete care. It is important for you to follow up with a doctor, nurse practitioner, or physician?s dental assistant instructor for ongoing care. If your symptoms become [...] we can reach you if necessary. [facility] has provided you with a complete list of medications post discharge. Please inform your tobacco drummer/provider of your visit and for further instruction on these medications. Any specific questions regarding your chronic medications and dosages should be discussed with your primary care physician(s) and/or pharmacist. New Medications [facility] [id number], [place] [id number], [phone] dextromethorphan/gua ifenesin/pseudoephed rine (Capmist DM 15 mg-400 [...] own, without (more content not included)... Normal [facility] Coding Summaryon 02-22-2023 Coding Summary HTMLBase 64 JitteyqsMTn2cLj+PGhl YWQ+EJ1BZVZdB11djQHi hV1dT7RIRKoDKcdrRHIZ ENvMRtGykoOmGR5qaDBe ZXJu IC8+YN7rPJVwYufftXUp z8F4bEL9F35jli5dMNwx bYJ5ELMoDlLihyusk6fl bEo9YXbiProsImWc KLJzoU91CLQ5wB79Db05 uWMhvVUgi5xkiIi6BhLp QZGdCVJ1sWhoKJyfp0Qc OMZlQ75zbYIph0E2 IGNvbGxhcHNlOyBlbXB0 gX5bGIfpuutgy0kqgcme Kxc6ub31yHZjc6C8kSY5 W8KxxdS6HELhkBPb HgrhzMIMuH9ygcwdc5dh bdunXcSnSBNoYOw9OEe3 JTCynReyDdPiWC25HNJ6 XCZimuQsO8FeXHDv lOqcNpY1h0P0Sr8OH9YE UfjxD2IFBCMTBLeyeMS+ ZD75ip26J4QaRrhdOpk0 GDVfUIG4sZR9mU3r JGTmEQxzh4W6lDC1C1Sr cxBzsm1vr1wyYUOkJBua M88bzQYbx2P9ECVkgJL2 WRHxzErkItEgbQ24 Oyc+ZHPlqLqii0DxBvit t3npi0icuWl0YggrWRPv mxRsnTmlXTJ4z9RhTr7z KCJdyXL4bEC6kJ2m NhQvCtH0EJblL447UiUw eLRrBldbT16gC4PuoRH+ WJZnAkz3JKVuwXocPK0c P8FbQRWesfrnhCDv tDwhZA7qXAKgszzeAIHi kZ0eMIQjI7j5NcDxBhT8 OJmsE2GeDDUmvqntEs78 bO4mOfHeKiK9QZex F5CjaiU9KUJakLAeSThi BKC2J76vw1N7LKGdBYGw GUV2yHH1tX6jeYgixtwu bGVmdDsgdmVydGlj LGokPYqvG349LKJzjXuv PkNvZGluZyBEYXRlOiAg MTEvMTcvMjAyMzwvdGQ+ KDXaLYO8uXiwYLYl pCRbJCysMu0ysNdbcIgf EB5pJTVoixxaUTQwlG3y ZAGoyRMfjFijSD3uZGOh cgiqg819OqRmZSL7 EHMvnPKmN8GokF5yTwBb GBRtWTIvO0TymXLfAOou K529VNleIqR6MOLxxdZp U1ElTQFrdLfxBnD8 u3U0Hg5Tf1OwijndL7Tf wMZrGjLxGkdtDFx7I1Ie PjwvdHI+LN63ZMHbRA56 XMk4PGQ4lSntIUew QILoQ1ZtqN9yOuOdJNOk ZGRkOyc+PHRhYmxlIHdp ZHRoPScxMDAlJyBzdHls GS1dKl4lCTMqYFKy nTyonAWvNpTnl4hvOWLr CVykET7xsCpzH3GmtGK6 RFVup5o8Bz49K31xC7Li dXA+LKBtaSB7cEK9 xG8fEzIfEzB9YBbuL536 CpDazCPrDjztv2lvy7cp hNw8IfB2BXXwoyMfzKnk BWG9g6IvJf06D26y IHdpZHRoPSIxNSUiIHZh sAkygw4sbY8jHl6+PGNv zOG1aUR0cF2qSuSpUlP3 DUvgG100QkIkbLXn Ebcfv7ghz4otwTa4XhXu LAJrohDesXhiIAW5a9Rv Bc33S9HpfIvdz9YgVnz3 cg25aMGpl4P0sQG5 W3IeLTHgxppqhOSaiDrv CS2nYFXtewdhCPIqmL3j IQWhK2j7ViThYaS4KPhb F0DxexA8HOMozAIv CUQjqCIOjN3wciijq3qy cxvgWfNxETUcAZx8JRw3 ZFQkjLloSzJwBLX4VxK2 GTV1dIAhvW5htIfy gnaqfS0lLkb+RUR5gENe zPBVNR2pYrwalIY+PHRk VEN3aUslTJsuZGXwiE1s VREvW2u6IrDkBlP6 ANzfP5ByluO7HPPcuVLe GCZrmXNBzL4gkzkte4gb iwfeGfYxTWWvTXq3IAh4 LWFsaWduOiBsZWZ0 UfG3CDP1hRPseS4ipVyf cbmvxZ7fVdi+QmlydGgg ZBK3MVn4U7YlWli7WFFp jUaqCH7poAVaALcy Oj0jjRjcnZczOL9rMMWd cwymw784ZxAes1yjGFUk eZRdPYxxUCX8A48sr6A6 QCRgLAEvJCJ7uVP4 lW2jrBswqfqvjZGrgDyo siGdpZeaJCftJHgkE849 EQYavGysKyArXZc4C4Ut Wba9ABZhbHwwJV1t vWIzMHztMk1gmMfysGiw AP6xVWOrnrwum583FkOv r7khKKOgrKZtGWxqBJF8 N92ox7U5KNKoBPIq XHR6gLA5cX9orOfcvrfn bGVmdDsgdmVydGljYWwt WCpmW833JYFnaZvdUzEn nPl1M6QeWse5LVMe qUojHX0onQDfRQvxEu1r xTxfuCjzDN3yQBVszpnv b569GeCxf2lxYKWcvEXl NXotIFF0D37jh7I2 OGPmURAoEWA6hUX0iT7y bGlnbjogbGVmdDsgdmVy sOeqRWoyKPnjX625WUEx cDsnPlBhdGllbnQg KCfqEZg7U3ApTorpkAB+ LE84IRCjHW71fYAukCOx j0xzySd2GyNnWXPiZZX9 pKvfMMrss5KbCPMq J57slSHwg9L6ZOVveKvd fHCtTuHudXL3uC4sNSno hhvpm3vjbmeqKsxea9ba jw48yO14K85fWQlf ZHRoPSIzMCUiIHZhbGln ft9noL6sBd8+PGNvbCB3 gLN4sP5kTZGuIeT2DLqd N196OcEcrSZlAcum v2qyd4lyhSp2JyV8JHPs bzRwzVjaIWR3q1CtRo52 Q80yERwdHLJgNNLiPEWm AGRqwWqcpa6rhI6k Ii8+FXTshXF5wCF7aI6g JgDpGgA7ZVxrX624DrAe tKEyIpgbD48dD7ShoFM+ XVOzSvd6IXJrlRbf CT1zoTIgSOrtCg3mVBR8 GoFnWtAsKAujG2RqZGKr lwboeoxwxHN6BKCnMVVg tG33Ex2ojSigPTDk yJZNrM0ccusjm2rwbgls RhWfRVEcDHd2ZWp0DLNn yPysFeHnEUV2WaT6RTC4 uBPdiY7wfKozxfkn jA9zD8AyTQVxrecvEq16 aA2gNvXwLiU1KTkpQwm+ D3fCStECIStrB2xOLGRZ RNmHLV8XBRcmeBI+ ZKUeKDV3mCbyQNfjTHWi oL5uNHRjQ3t2PyEhZnT8 VOduN0PzWIMdnlloOj29 tH3xSwUyFmN9QGvg V3RvfwU3QVNpgNIzEPoj HEI9K95ko7K4WCYuCGXg NZI6cOB7rK0kaVdpclcm bGVmdDsgdmVydGlj RQdbVUeoY503VXFapVwz GlM4FjYyHjAmPXX4D6Hg Vuo0LTSpoCirMZ6jcRPj AQbkLt9vmLxueHeg HE6pIJFxfxtlBINdbR3y QFKpjEKvbJguCC3vGWEv jlhse670AiMvESW7DQDy pRKuC9OllB6wXcDl ILYtWXPlB2MljFChVAzn S621ZOsnCuN0JBNbxbPm T4OaHKBzyWukWtQ7k4L1 Up8wCBFMNTBlydxk dGQ+BPEtRZN8rFpoJOwc LTGwiN8tLZYwM2m4WdEq HeC5CWpiH0SiJYBpdbhg Ab73mK8fHtGbUwK4 MQnjJ9HvaeL8FSEbgDCs XDxqDZL7Q31zy8Z7KVLp RUXuXKJ0bGG8kH9euPlm bjogbGVmdDsgdmVy yPdkWHynHXhkR331JTRz cDsnPkZFTUFMRTwvdGQ+ EBWbGIY4yVcoNGyyJKFw fO0iPKKnJ5p4DaVj WkP8GVfuP9NzJRFjzimz Qc85nY5sQeAhKzG8USox K5WtheV6DTEghOKbBNcw KDB0S86js5I9OYAn SAWhNBT2zGZ1uL4efDfs bjogbGVmdDsgdmVydGlj RRcvWGspO142NSDoyTug Na9IVG00NL43W3Qx PjwvdGFibGU+PHRhYmxl IHdpZHRoPScxMDAlJyBz aZoqFR0lVw5kURTjZESk iFkjjGUqSvOdb6hs IMYcYJcvHN2reMhoT6Ub kFS0SEVwx1o7Ca37Y88x I2NbqST+ZYStrLJ0aDB8 rO7hMkRrBuJ8FGgt K612DrHqoWVpQxcjt5qh i5zrwOp1ZtTsJPVyhzIt dVkeQGD4j0GbLy23P52k IHdpZHRoPSIyMCUi HVHbdIehxy0ixQ8zCg4+ NNXqoBC4bKY9nF3rRyBq FtF0IYzcM542QxNheSNi FblpF52gW5QzoLW+ IZNhNtp6NPXwpGcoZE9v yGIqHLlrCb7jGHC0BkFd GlQuHStgO5UfKEEsroqy mcjuzYB7KQXxYUEc gO12Cz2rzWkyTy6xXIUp CLG6UGUqfGErU6BrrK3w TvEoDLKtUEGfR3BbdZDa LYzmN270QQsrIdI7 HGRhhqGzE2FyPGPhrIor YsG5y1D1Sv2IuJypcUBf ZQ6eVvJeFMw4C5UaBoq4 BKQoeQerPC5gxMPb DPnyRp1ytMkjlVvxTX5g HIAdaljlh800KgCmk9fy LTGgbKNaBEtgQLD1X25p r0W8OEQlPONdNVN1 qLI2qC5cvRxilksffARy dDsgdmVydGljYWwtYWxp A109HFEdjMamMjVYWgu3 V7LuGss5URMxpWzz WY6rwOYqFLfeBl7mlMjv aEclRB6nSEFbzcuwe412 HfKpa4ghDMAvuWLgVMea NVZ4L48li9C9UHBc VLDaOSX0bTC3xI0yxOqm bjogbGVmdDsgdmVydGlj PBqlFSifM622CCZfiGyb Le1EMgq2L4GwIuz8 MRAzqTabWW8hyPObASjk Tw8omTmiqWnrNE4hSNGt uikqf803KhTje9hgZEWg fNQiADoqYQA1R28w q9Z2QLCjUOMeJBM7iWO2 bZ1pxRmrzrzmeQZjfDlv jjQlkMueSNyiENswC422 IHRvcDsnPlBheWVy OjwvdGQ+NQ01xk52B0Be PussBqd8AQZpMSR1eBO6 xJ9zATXwXKpdi0H2yTA9 H9WujrOsmm7dq4mb YXB (more content not included)... Normal [facility] ED Clinical Summaryon 2022 ED Clinical Summary [facility] ? Urgent Care [address] [place] [address] Clinical Summary PERSON INFORMATION Name: LIA DESAI Age: 22 Years Sex: FEMALE : 2000 MRN: Acct#: Visit Reason: UC - Wrist/Hand/Finger Pain or Swelling; LT HAND INJURY Arrival: 02/14/2023 17:07:31 Discharge: 02/14/2023 18:05:00 LOS: 000 00:58 Check In: 02/14/2023 17:07:31 Checkout: 02/14/2023 18:05:00 Address: [address] [place] [address] PCP: PROVIDER INFORMATION Provider Role Assigned Unassigned [...] Therapy Follow-Up: With: Address: When: Regla Hernandez [phone] EXT: [phone] Call for family Physician Within 3 to 5 days Comments: Call for help finding primary care provider. Follow-up for reevaluation. Continue with rest ice and elevation using ice 10 minutes out of every hour as needed. Return for any worsening issues or any other problems. With: Address: When: [facility] Comments: [phone] DIAGNOSIS: Contusion of left hand; Left hand pain Patient Understands: Yes - Patient/family/careg iver verbalizes understanding of instructions given Comment: Normal [facility] ED Patient Summaryon 023 ED Patient Summary [facility] ? Urgent Care [address] [place] [address] PATIENT DISCHARGE INSTRUCTIONS Patient Information Name: LIA DESAI Age: 22 Years Date of : 2000 Reason For Visit: UC - Wrist/Hand/Finger Pain or Swelling; LT HAND INJURY Arrival Time: 02/14/2023 17:07:31 Primary Care Physician: Attending Physician: DORA JASSO Comment: Patient Education With: Address: When: Regla Hernandez [phone] EXT: [phone] Call for family Physician Within 3 to 5 days Comments: Call for help finding primary care provider. Follow-up for reevaluation. Continue with rest ice and elevation using ice 10 minutes out of every hour as needed. Return for any worsening issues or any other problems. With: Address: When: [facility] Comments: [phone] Hand Contusion A hand contusion is a [...] elastic wrap to support your hand. ? Wegv-kry-fzbyfwg medicines to control pain. Follow these instructions [...] or lying down. General instructions ? Take vbib-bwd-dhmgzgh and prescription medicines only as told by [...] provider. Document Revised: 07/13/2021 Document Reviewed: 07/13/2021 [employer] Patient Education ? 2022 [employer] How to Use Cold Therapy Cold [...] the area (more content not included)... Normal [facility] Note- Provideron 02-14-2023 Urgent Care [...] All Problems (Selected) Anxiety / SNOMED CT 96082011 / Confirmed Acute depression / SNOMED CT 0482387702 / Confirmed Chronic post-traumatic stress disorder (PTSD) / SNOMED CT 877468822 / Confirmed Pharyngitis / SNOMED CT 8483941308 / Confirmed Cough / SNOMED CT 33262693 / Confirmed Objective CONST: -Well-developed well-nourished. -Acute distress: No -Vitals: reviewed. SKIN: -Gross abnormalities: No NECK: -Supple (sdnh-ho-gblbj): non-tender. CARD: -Rate and rhythm: Regular RESP: [...] and Plan: Diagnosis: Contusion of left hand (ZTY76-GO S60.222A), Left hand pain (WYN77-LN M79.642). Orders Orders Patient Care: Brace/Splint ED [...] on: 02/14/2023 18:01 EST] DORA JASSO Normal [facility] Recordon 023 Urgent Care Record [facility] ? Urgent Care [address] [place], [place] [id number] PATIENT DISCHARGE INSTRUCTIONS Patient Information Name: LIA DESAI Age: 22 Years Date of : 2000 Reason For Visit: UC - Wrist/Hand/Finger Pain or Swelling; LT HAND INJURY Arrival Time: 02/14/2023 17:07:31 Primary Care Physician: Attending Physician: DORA JASSO Comment: Visit Diagnosis: Diagnoses This Visit Contusion of left hand (S60.222A) Left hand pain (M79.642) UC - Wrist/Hand/Finger Pain or Swelling ([id number]) If you received any narcotics, sedation, or [...] any legal documents With: Address: When: Regla David [phone] EXT: [phone] Call for family Physician Within 3 to 5 days Comments: Call for help finding primary care provider. Follow-up for reevaluation. Continue with rest ice and elevation using ice 10 minutes out of every hour as needed. Return for any worsening issues or any other problems. With: Address: When: [facility] Comments: [phone] Medication Information: The exam and treatment you received today in the [facility] were for an urgent problem and are not intended as complete care. It is important for you to follow up with a doctor, nurse practitioner, or physician?s dental assistant instructor for ongoing care. If your symptoms become [...] we can reach you if necessary. [facility] has provided you with a complete list of medications post discharge. Please inform your tobacco drummer/provider of your visit and for further instruction [...] This is (more content not included)... Normal [facility] XR Hand Complete Lefton 11-0 XR Hand Complete Left CLINICAL HISTORY: Left hand pain. Punched wall. TECHNIQUE: 3 views left hand. COMPARISON: 12/15/2019 RESULT: No evidence for acute fracture. No dislocation. Joint spaces appear maintained. Soft tissues unremarkable. IMPRESSION: No acute findings. Final Signed (Electronic Signature): Gavin Mahoney MD 02/14/23 5:54 pm Technologist: KELVIN PATEL [facility] Coding Summaryon 11-27-2022 Coding Summary HTMLBase 64 XneflmavFNn9tPt+PGhl YWQ+HM2QQQNkD73mmXMt vY0yM9AGJJtNJopjPSPX XHjWRtIrvoIsMJ7aiOPq ZXJu IC8+LG8oAAKcBuiouVRj s1F2mJR7C68mpc7aFEtw uRS6VYEjVeWytvyex0td aGj9IRyvLqvkJaQn ZKDicR54VGM8mS92Vk09 uOXjzTZzc3jjfOr1ZrJs PPDpRSS0nUymEJtad2Ge BQSlE27fnFEjy3Z4 IGNvbGxhcHNlOyBlbXB0 eH2lLRyvajkqy8happyx Nng4ns49dNFvx9M7mEH0 Z4QeuxM6HTMdqKZp WiokiZWAqZ6tnyhpf6en opqcPiOjCCAqGKb2RCa2 YTOhwSrrWrUrCD84CUS9 FMDumiTsR4IuVMIe yWfdAxO6s5B0Uc3JM4SK RxswU1XSVGAQCEuprLN+ DZ43nq84C2SqNegkRht6 RAFmWOC2qLY8bJ4g UYZgMUasr6V9vXV5M0Na wwRhip7rl6qvIQLxQKkx A84uoECif3K2TCTcoJS0 SGSepUsyFyJydG48 Oyc+WLFfpJltq4RnZiui p7psq3pefWx2IeemEWOc wjXjePnyXHZ7b3OeEa9f MACkzOR1gYK3qP7a PcIhZvH5PKjxH564RtDy cVAeUwgyS86jO5GxpDY+ WWRlYfe7GKCsqJvqJN4q B7BrUOJmwybwhAVz dJbyFW8rZOMfrdezQMZn vV4nMQEtG6x0LsMmQsR3 IMwkG4EsORUusnahUb03 fO8xUoMkTnE4VJfb Y9DhemC2GRDtkQRfCAir IZP2Y89ff3W6QQHkLQUf TYS4pAN8dM3lkXzpmifd bGVmdDsgdmVydGlj BEzpMZpkP292VPHjxBbt PkNvZGluZyBEYXRlOiAg MDgvMjEvMjAyMzwvdGQ+ PCOyWES9dYmcMDTj pJUjDTfwEl4gjDxnjYyh LN9tVZFxcizjBXLyzI2y LDXgiJVbqZskFJ6nWBBo lvxaw417CvXiSEE5 RNDfmBHiZ4FmqN1oBeJd BIJeDSZrH7WqbFVvYKij L015TDksKwY1MBMqwkNg I8JfLMBctNgoQiK1 q1G0Px5Ii1GygyrjP1Nz hNSxBnBkUdsrVXi2I9Nk PjwvdHI+KE77HJZdWW20 FNv2YXT8pOcfTUgl SMIuV0BxsZ0lRrRiEBZv ZGRkOyc+PHRhYmxlIHdp ZHRoPScxMDAlJyBzdHls KN4sBj9pLOYvPLQp hOaajPOgTuWeb2gxQGVe FElwGG6srVucQ4XnfBY1 JDAnu1h6Kh70K69nH5Bo dXA+KIMurKE7wQJ4 lK6uAuRfMpI9FEjxJ896 ZjEolEFfJxlbx1tln0fw qYz5MwF8ZPQhsgCvzReu PCU9j6GhRw27Z86f IHdpZHRoPSIxNSUiIHZh hDeyhi5mxJ2iZb7+PGNv mOU8zFZ8uW6oMxDfMxA5 AMwcZ942KaFwkJOb Ymbdg4bhu3ahtLd7QwXc EMNgzmFgqQpuZLV8f2Sl Tf59F0SyaAywj6ReVli9 oy88mZIgh3X9pSU7 C8DlYTJwcoxnxDUsgRcz ZN5rZEHkjsbrLDSboU6d NKJxC0g5MyUlWeL9OClf X7LxzoJ4QJBshONe LQJwsSSYbX2digvzh8tl cfajMbJmSDBwXBv9EJq2 NYQdsZtjHyJkZUF6SsT9 PPQ2gFIznK0axLxs opxxyD2sZpm+SWZ9uSVw pYXNNR7dRavryRT+PHRk EXT2zNfhMOgrQDBebE3a VBIbK0d9VmBmGrP1 HEheM3HankC9BUDfcKOj WDNiaNBHwQ3mqkreq6ow gncbUcNgUUVrNFe4SOp8 LWFsaWduOiBsZWZ0 RtX1OHU4pMVufS0kyUbf dhrxfT1iLet+QmlydGgg ZCH5CSn1A7QqNob9ZBQv rOxdUJ5blOIeOBys Dw9cxAavoEmjXX6dFDYs dxiii435LwJcq5gzJJOp cIAmUTmsCLP6T86zu0L7 DOTzZAIfCNV9kPI7 aG4omUjydamiuECcsGfq bdFsbUmpORekCSofR168 VSDopRjgAfMdUZv8C9Op Cpx7BUMnyUxwSG9s hSUjXKfvZc4ddYocoPkm XS2cDYOauslke896OaOr v1ciIYNbsNGjCJnaBFC2 V40nm1D1AJKvXEBv VOT4oGL0gR6tnFaceegu bGVmdDsgdmVydGljYWwt FHkiC701UJBwxTwkXzDi bCj7R6VxDrl3GQYr vFdrMZ1jyANxUMbcZd7t bTwpkXhdUW9pTIYbivmu s862FmBby0yvSHVrcBMu WDsbUCM8V56km2N5 NCPtOZYbPSD6dOE7uA0e bGlnbjogbGVmdDsgdmVy nJysCOefCNonE929DWAg cDsnPlBhdGllbnQg EKfsSHr7Y5OqWgttnRT+ EP37FFToFL13lDZjkGKx v8fybMy3IbRwRRTaWNX8 hTcqXTpyu5PjMUHg S19enKDdx6O4ZKKcaNyu cHWgMbHmjNL9jE2cCYuq cgvew9cvasavQkjga3ak ce95zP35T44bCCor ZHRoPSIzMCUiIHZhbGln hq0mmF5sBq7+PGNvbCB3 iOK1vV8kFVOcAhE3TWxo R202PsUcoVYzLwqr r1vha9rhrVo2RaR2MRLt joGseHepBSC5e6WhTq90 H31hUGdhMJOgCQPhLLQw QAWnkSygdo7uwG1e Ii8+RBLuwLV0iCZ3fN7z HkQsNaG4VEpsY307AkPd jPHiGxswP86sV5PtnFE+ VCOvLlw5GGWdzSdx SY3maYXnLAmhTk1vBPW2 KpLwOdPiRMvwH2QcNAFs cybbbmtvjQH7YUYhQKEa jX13Kc4qgPnvYYJn uMDFoK7szgclo6xetfxi DlBsFBKuQTf7CKl2QNHb lRwkMvSdVPC3UzH0VLR3 iBItxR9bqLtbawrp dI2lN1XaJOYvebspSh32 sH1hHuDtOeD6CEcfHlw+ A6lJWoUEWIuvA3pVOCLW FNfJXK4XVRyucRV+ VSLoTKH1nNriCJyfENTo jL7dCQLzT5f9WsJwBxO4 OZpjN7GnOIUsrqcyNu03 gR6tNuXrTeS5UMav R2JlzfW5HRGcuCUzLZhh MCT2H20rg3I9DPNoNXYn ATE4jMV2pM0biNlmnwmw bGVmdDsgdmVydGlj GVjvFMfhC433QMLyyKpq VgP9ZmNyCfUlIUU7S8Kx Vcq0GKTttVgjKJ8cxJMy QHhyAz1fiMuohFxw HN3iDAUldwbpXCKceR5p FJLgwWJqzLifCU0qGGWb gxeow550JwFfGDR4TETn rQGbJ2IjdF9yLcWp GUHzGBJtM9IjqVJaYJjf M893WKxpRiI1UTUyuxIl H1FpRDUttNrtDdH6x8R8 Df6oIBZRWWMuugdu dGQ+KGNqRDP4jWdkGPyu RYCeoO8aYHHeT5f9QjCf BhV7WUzyQ1WiHWZvvedl Ks18qF3dAdWmHpN9 MRtvX7KzttU8ZMNytBGh FPfuTNO4U24ls9M3CDLn MUVmDJG4uUJ2hC6opEjt bjogbGVmdDsgdmVy gWoqNQlgQMmrK840IPBl cDsnPkZFTUFMRTwvdGQ+ IFJfRIE5xOqjCJaoNCPw qI0rHVXkG2z1WgFu XfA6GNepG3VqLRRjqwif Ct61uG4rGfDjEuB9LNpa I0NmffL9MBTzqXJoEGuy LRR8R23wl1X4NSLg KKQsTTD7pWU2hZ6gcWxp bjogbGVmdDsgdmVydGlj PCroBQkyE245HEFrnEge MbFpICGzVS0dnGhi dGQ+XU99lh47T4HzBppd Lpr9LZElPXG2qTB0tJ4g RINbCGzdf0B6oFE7U7Jr poTgrj5bt4deMYCq KAwoA10muPVrk5C8TDXo hYA0HCVdxAkfBrPwaI25 Oyc+IYJlvIogz7TqBlfi t7doq7tefLz4MxEl KAYtuxJafLsyWKW8y3Rs Ub40J29xTUwiYPTwVYCt XYSnLWPskHreye9zyD9v Ii8+MKQdqNM6eKM0 rY1bSoIuUtX8VRmnX634 AoYpnSFvIyesv8gyh0pv yOn2UbKuOEChiiCgjOzk JVD4h6AaAj03A8Ev aAqce0ElRnm7jo46kVJx w8K6wQK0Y5WjQINuqanq mSDwmUdrIP0kSLKonthf NQBgzS6zLMGqU4r1 UtYyVzQ8YGhqO3HoqrL5 EUHozAWfMLTndSPYpA2r yerax4rdfrzrOpVoNDMh DSc7OSb0HHGzrOrl DiVnWHL7XyD7VWY5qRMv zC6uxWckzwpziM7iGpt+ YUg2f0xpgODcIJ5kuKM5 AN44GQ27oVZuc2X3 gZO9I5PbOAHyciperkis oCS4APDkTSMrlV22Db4d oQxaHw1qMERpNBU4WUEw wEQdH0LwtV9pIyQn GMJtCEJjQ2ZfwYRbPCbz C170RWieFfB3AMPettXk Q5OjZLNqzUxbCaJ5m0P9 Id5VWU41CN93CH76 eHUdn9N3mPG0F9VjIETm dymvavqflDW2CDCqZLEh lW47Ch4mcIojFn4cTFWp DEY3IVFhjXChC2Op tG9iMcBgJKNoPEJeM6Yo iCSwBYvcA032QZdtXfW2 MWVjooBrF2SuFAJxrJba EoF6x2B6Mj9CBc87 DV47DM67bRJwd3Q5oHO9 R0RyGKYcljhezyybaRC3 BXShUJYmiC52Ca1tjOxz Ye4eMRErROO1EAOi uWEjO0PhaH9iKfSaRRSy NOCrK6AgdKAbXIutB893 IJszGgR1CQYouyKbG8Oa XLKqeOzfLrA0u9Y8 On4BYBfumci1P4AiGtmc dHI+OY11NZNjLY46yIDl bPMzg4lexAc9WkNjXKBn NCW3kLfcSGxpm2Vx ZXI (more content not included)... Normal [facility] ED Clinical Summaryon 2022 ED Clinical Summary [facility] - Emergency Department [address] [place] [address] ED Clinical Summary PERSON INFORMATION Name: LIA DESAI Age: 22 Years Sex: FEMALE : 2000 MRN: Acct#: Visit Reason: Hip pain; LEFT HIP PAIN Arrival: 11/15/2022 16:28:10 Discharge: 11/15/2022 17:02:00 LOS: 000 00:34 Check In: 11/15/2022 16:28:10 Checkout:11/15/2022 17:02:00 Address: [facility] [address] [address] PCP: Provider, None PROVIDER INFORMATION Provider Role Assigned Unassigned Anusha Palomo CNP ED PA 11/15/2022 16:30:26 Jayne Zuñiga MOTOR CARRIER INSPECTOR Nurse 11/15/2022 16:32:34 VITALS INFORMATION Vital Sign [...] verbalizes understanding of instructions given Comment: Normal [facility] ED Patient Summaryon 023 ED Patient Summary [facility] - Emergency Department [address] [place] [address] PATIENT DISCHARGE INSTRUCTIONS Patient Information Name: LIA DESAI Age: 22 Years Date of : 2000 Reason For Visit: Hip pain; LEFT HIP PAIN Arrival Time: 11/15/2022 16:28:10 Primary Care Physician: Provider, None Attending Physician: Bennie Sharp DO Comment: Visit Diagnosis: Diagnoses This Visit Hip pain ([id number]) Sciatica of left side (M54.32) The Pharmacy at [facility] is open Saturday through Saturday from [...] contact the [facility] 29/10 Crisis Hotline -Text 3JHIC kn 262388. If you received any narcotics, sedation, or [...] received today in the [facility] Emergency Department were for an urgent problem and are not intended as complete care. It is important for you to follow up with a doctor, nurse practitioner, or physician?s dental assistant instructor for ongoing care. If your symptoms become [...] we can reach you if necessary. [facility] has provided you with a complete list of medications post discharge. Please inform your tobacco drummer/provider of your visit and for further instruction on these medications. Any specific questions regarding your chronic medications and dosages should be discussed with your primary care physician(s) and/or pharmacist. Medications That Were Updated - Follow Below Instructions [facility] [address], [place] [id number], [phone] Updated: predniSONE (predniSONE 20 mg oral tablet) [...] Stop right away (more content not included)... [facility] Progress Note - Nurseon 11-06 Progress [...] low back pain. Patient was seen at [facility] on Saturday and was diagnosed with sciatica. Patient is to see her PCP next Saturday. Patient was prescribed Flexeril and Naproxen. [Electronically Signed on: 11/15/2022 16:49 EDT] Devaughnpaulette July DANIELLE [Verified on: 11/15/2022 16:49 EDT] Zara July DANIELLE [facility] Coding Summaryon 08-28-2022 Coding Summary HTMLBase 64 HvmettajKWx1aEo+PGhl YWQ+KU9EHXAxC68sfFHm dE3fI2ESXAtIHnhlAMQH JVrBQvAdrcAiVA2gvWTk ZXJu IC8+GM5cCKWsJilduCXs l6K1oBQ4E11utk4aPLlq dKY4HBCtIuUkgkohu2dv uXq4FOpuTiywXoDm JGAduH12XHJ2oG59Yx28 zFVhoYVik9ebeLx4JaUu PHIpWDK4tHeuAVirt5Gu BQXmT89xdILkt9B4 IGNvbGxhcHNlOyBlbXB0 cD2mPXhvvigxq1nhicqj Bez7qf26cPQfx3C2jRH4 B0XpkjH4NNKkdJNo FsnnwKBLsY4zayspr9wh bvpjHvBnBEOySMj1PAd9 ZAIbjDtsQrUrMS81HQY5 HDEcusViJ1NdCTGm fQplTgN0i9Y8Ns7PY6OP AypmC4FJQZWYJVewuGG+ QS03te38C6XcXdqpSki7 RSUxAID5lSG0tU6r OJBmQDwdt3K0vVY4S6Zw ckUufz7ds4cnCHBfYVgl B52xkRRsc7F6IKBrnQI4 WNBqgAzrSyHlpN39 Oyc+TAOarOkmd3NgGhgc b7kjh0dfcQw4OhoaCCZn ebAqzUlaZEB8h9ZePd7v OSDfdKO3uJD6eG7g OkTtPwU9WVkjU537BdFz vVNwRhuvV95aM8RhxYB+ EQIlYvm3OGJrxKhmEY8l Y1WcQAHfptyagNKv dJunVS4iWPIxxgtuHUVv xF3qDOCrW8f0MqQfZrA5 BTwgO0HcHKYkhctmWp83 bO6eFiIhKyM8IXqa T9NjjvL4MKFsoNHxXKtj KCR3R48lt1G6QDHfOBWj KRK2qTX5jY6kqXuviaua bGVmdDsgdmVydGlj ZHlnMPjsN780SINhwSop PkNvZGluZyBEYXRlOiAg MDUvMjMvMjAyMzwvdGQ+ LEOmDEX3oMavBPTw oHUnLShzWk5cbPgukSun IK3pNGEvcxaaURUrcL3q DNRnpSPavJcnDM2wNDEw dctui344KhMlVKE6 VRIvrYIdH6EnjJ5fLwWw NJHnSTPuU9EfcDJqKRjf K079XHvbLgE6EYUrqiSx A2TgPNZovBcdYhA9 y0V2Fc6Fm2EmtghhS7Tn lEBmKlJjPemhEVb2L0So PjwvdHI+AH06QLVcIW37 JWk2COX3wWvtGTry YLZrP8IuoU3kMjBjKDUt ZGRkOyc+PHRhYmxlIHdp ZHRoPScxMDAlJyBzdHls LB8yDw9qEMXzTDYh bFphsZUjNeGbq1riMPDm BDfqML9yjHidS4QpoIU5 SJTfj8l5Qe28X44wV9Sc dXA+UGCgxZN6bTF5 hI2wTvIhUbS5XCzvO464 DvYlcKHgLdfss1hfb9zg wFk3IrQ9TQLwhiKufZxa UTB1l6YmPd65I30i IHdpZHRoPSIxNSUiIHZh hCknvd0cvW0aPe4+PGNv nDL4jLH3lI1bOsGqRvZ9 AWntN554RtPbqJFb Iwqar1uwy1tuoJj0XhTe WVEvvkVltXqiVBF8z6Nk Sm77T5FltQwwr1InWww9 aq56oSSat3V7kJM3 M3FoWMLvqhcvhTPzgSxj GF6tPMRcwvikEWKpjA3l QFUuH9o1BjYrMdX3RBxp U7TnzpA8BWNzeHIh JIMysYLCoC5hfajvs9ln fvbwYtWnXYHlKYl2OAb7 ZAHnnQayDnMjWLQ2ToX8 BOP9uEMskJ6nxMld camouR5jBin+MDN2yJYs rVYZNC6pNsmwoXJ+PHRk ALR8tXxvMSbxBJSlbN4a QOWkW5s1IqDlGoL9 XOwnJ8NbwpX9AUDdzECq WHFavDJJbT3emnmiw3ru ssvdFaTbJDYqXVi9FBb5 LWFsaWduOiBsZWZ0 IgH1XQR7gVHgvE6csIkv cokclY6mDwl+QmlydGgg HKV1APf7U2BaHkt3VQQy hNehAP2joLJuAGcf Mc1tfMwkxAgbSS7hTZYs aglnb501WxNus5ebLWRc hVRnKEayCKQ5U41xc0A7 GBRrEGIoFXN8zVI7 uH0knPqiumzmcXGdwPfh hqOsgJlqUKkbSTjzL936 UKGcnBcjKiJvIUa4R7Wd Clk3SKAzxIjaXB2e wCWrHYmpFm1qvMmkxCwp IM7kYXQxocubu468RjQm g1adBJHrsIKxCEaoYOY5 C79np1X2YLZcTRQj WSG3aNW4yU5fuQggglsp bGVmdDsgdmVydGljYWwt UHunO137QYYykJgoVcOj rPy4B7KpBzp6KBUm gFgaTS2abNObZTubMg7s wVkctNxzLI1fEWBvyzww k365CyIre9yjJERuxXEc YKooIYF9N39qr6E5 PVHuCWByDDC9iGH6bL2n bGlnbjogbGVmdDsgdmVy uCleTOgmHIqjK776GFAw cDsnPlBhdGllbnQg RBtdUAo4Z7IuGgrwbIK+ WE34MGUqYD83aELjePKc q2larMp9KuAwYUEzRQG5 wDdmLYqwi5KbMHGl M72hkXHgg5D3UZNbkMir xBGxUcShgGU4gC6fWCah hrxsh0jxkwgvSbrrc8wy mk05aG99P59wLRfk ZHRoPSIzMCUiIHZhbGln yx9brG9cJd7+PGNvbCB3 wVB1tB2pSBKsRcQ4UYhz N833UvNxmBGmYflb m6vxw3wcpDn4LwH3SHNu ioJuzTkvRBX5i6HfNj70 C31nRUboEAXdPHLdAVMl RBGgvEdbna1acO9p Ii8+BGHjuBW1pTE8sQ0n TjRsPcR4UPyrG821VyJq jHSwInqoG75jW0ZoiPO+ GDAnLum3JQGlzZlp BS2vzZChQDjoUg5wQWT9 OxEwLdRoVMsoO7McVIBq updgcuibmEE8LMPbJLRp hF81Zk2zfWkjVNVm wDPJsT5gueraa3uhdqui YzDjVMQsNAe6GLg9ZYXx pOfbEuHpNZJ4HaB0KJU5 gFBtvB8zpSgjtngc fZ6vI7XdSCTcxapkRr16 xL2jNmTtIaR5VAamXgp+ X4nMJbCSCNdlL7vZYHAT QXyWYM9GCLwmyLW+ OWJtWPF1nAtwVVhlOLGa sO7qLAWhQ2q4AoIhMuX7 HVsbZ7LzWPLuuandKs47 wK0mFwMfInP6PErt O8VyuiX9NBKwpJEvWGiu WNS6F42qr2Y0ZUGuXUNb LSQ3kNU5xG6pkPlzadib bGVmdDsgdmVydGlj QUxvAUodW748QTHzwGvu TbQ7JbOxQsLwRII8T0Ux Dta8ONKtgAwaCQ4eqBFx VWcmOc5muVymhHzt KD7zZSCweleeQSPbiP9j HRBuaTBsvLxkWY8sLNEi uogsz764NxQgXMJ2RZRe hBUoK7ZjqE4pRhZd QIMhBYUrW4ThnYBaSKov H421XEurHhZ6PLOzvgXu W0TbGEYtdEhuYbA1m7Y9 Nj6xUUXTXFLzexgq dGQ+IPJcXZH5lFehOCpr OWFtxG1dJZAeP0g7ZiVq QqE0FTufJ8TiOPRzksrw Xo18gD7yFpNeTbK1 NLquD7QwumH1JKLohNNr LXjtFSG4K68ox1B0SUZt EFToNSU8bFW5gL6txIjl bjogbGVmdDsgdmVy mZxcAAarXZmwE379LLPx cDsnPkZFTUFMRTwvdGQ+ QZBbNJG7uCkaBDzpTTDv iA5sSJYcO6e4LiSl BeH3PQdjO0XoAXVjjqyf Rf26nC5cTyHzDoD5TVkx D5OkrlR9OJGjjLCmEAyt SJP4Z31vq7U1ABLn PYYcIHG1kEA4wL2nnLpk bjogbGVmdDsgdmVydGlj DGmoTPezO589ZWHhcQnw Qi8ALI60EG90P4Bw PjwvdGFibGU+PHRhYmxl IHdpZHRoPScxMDAlJyBz uMwlWK1aTn6hNAOvULKz xUwygYKkGxPbw7ib UAEfOTctZD9mqEnsY2Qr eWZ6YGCcx0c1Qp47V06v L8QkiAA+MMWzqTI9hRL0 sY1pLaTyFaF7KBwq W610FdMkoHOqIbtua3ld q9ncrGb7JtFhGEIgnnAx xZidCZI9z0VoPw20J53g IHdpZHRoPSIyMCUi UPXctGsdtv4ziY4mWx0+ RAGpfXZ7hFN8mD3lAvLn EyA9IRalO006YaHutOSd VvlrJ37iR1AgpOB+ JJLmKix2EYFylJywRR0y kNSeEKeqPm1qZUW9MiYb WoTwRXodB7KwRAPjjvnt lqzcwJR9YRNbCGDa fN25Lu2fgZxrDp1fGRPt CMT5YVRizMZuV1CddF6r OxZuZOIsPYMgS7MzzNWx PLmhC717HDvnUuR4 HKFpphQlG1JsUWTbtZrc FsS3z7K3Ki4VzZsjhXAb MN7uIrVlSEg3D9ShKfe2 WJRklDtlBB8pfDEj WJqkPk3ftYvbbUjaPW5f ETRhlfcgs082DuXqp6tw WUSoiWTpPMpwLQK3Y24q x7P2XTFhNTUeBUQ0 xQV5jN8leIavohvhiGDk dDsgdmVydGljYWwtYWxp S538MLOiqQsqQlNQGpt5 E1XcHvs7JLDuiCqe VF2tjDXyXZkoYd1vbSzk pSsbZY6dGGBqqlpkx013 DtAhh9moXHBjnOCjBKnf HAZ2T61dy7X8PCTq XFFpCYX9ySL2jV8rkMbo bjogbGVmdDsgdmVydGlj YJieXEswL110WLTmiOtc Kg8FLko3N2UaLyk9 XBHvaEwiSU7qqTLfLVek Ae6yoEnrgSkpTR0qEQNm jakgf599IePpm8woZBCq gCUtTQfiBLM3D37c z0C0ZSQoAAWiLVN2fCV6 xT0dbYtumwrxmDPovOea haYjrAbfGPxbCYlkI632 IHRvcDsnPlBheWVy OjwvdGQ+PC22ca59S3Oc AcxsVnq2FKWcHVL8oOW9 cF3jSONvZPmwk6K1dYO1 C5AmvgNzei1av0hn YXB (more content not included)... [facility] Physical Therapy Noteon 08-07 Physical Therapy Note [id number] #1.00OTGTIFF Normal [facility] hCG Quantitativeon hCG Quantitative 3.0 mIU/mL High 0.0-0.6 [facility] Comment on above: Result Comment: Post -Menopausal Reference Range is: 0.1-11.6 mIU/mL Performed By: #### [id number] ####[facility] (DEFAULT)[address] [place] [address] Coding Summaryon 08-16-2022 Coding Summary HTMLBase 64 FnjjrnjyMHm8hUh+PGhl YWQ+LM6KNBJkG02jcTEn sJ7DR1yYPQ9VVHVUUCQW RI2WZK6gmWN1RBdgO4Qm biAv OvnzwHArCB33MJq6FHO0 eRehVBxjmL9byKPlY3k9 KyTnYG82bZ20XKmsXRGb AhH1IsHsnrziuVUv S8umJhNiqISzTus+PHRh YmxlIHdpZHRoPScxMDAl PqPzqRyvAX9fLa9kYBVp LWNvbGxhcHNlOiBj b2wiOXSrRUieZO3ewTky I1FltIV7XDYgq8v8Wg73 dHI+ZFJrTDI1uOkgJFki d391OrLwc1niPDF0 nQJkDGvzBYW7U43el7E7 STRaAWNzOBZ2pWA7hF8f uDggcyjgH9ZxbASsUwX6 DCD8vQWnkY0owQot ejbizA7qOhx+Q69WHB6Y ICWFRT2BZsm3Y3GsLfri dHI+LU20CEBhJI66yTBw xPNgz4iunFs3SkAu PVVjTNG3gYcfUFiaq8Pz VVTiU05imGHsn2C1SLBx nGklnVZeGsEleKA5lH1v BEzczricz1vwxhun Msbbg2kybb39uE52X69v KXkoVRUtEUG5OEJjEXDo nXyaku9utY9rZr6+IDxj r9dwd8yanBr5JuSb RLEsmaKftDkyJQZ5t5Ig Rd35Z6MjxOkyh7UmJmh1 py47iNIka8K9eBJ4LIbn OGUghK6mICmeKtO1 OMMuAgVwzX32iKZeNUep Tb6pwQpfpFenFV7lVXFm abjvJCCzmJ4jZULcaINv zBnhLF7gUSGubogl s319NnYfCFP4XKMhbRZo B3SpnR2wXaGpZVDoPEZy W4AwuSNaBOteB003EKpq ClX7AAHqitEhV8Vn ZVPjgWfjDnW8c2P0Ir2Z t7VnvkleZTS8YCduZDE8 FbSoBzErTvI1C2PaSoz9 GEZqhApsOD9zG8Fv EGQntjhpoofpoMI9KSZr LBKuxV38xCVsAJubUa9y r3I5b383QMQcXXLleM28 By0jkGxqJFOjeGCZ uX7dikznh9kwtvjfEuKp JPCjNCc1OBb5VTPppGuj EaPhRJD8PuU1BWG4iEXr eI8rmWnnrckyeB8h Oyc+H46egI4wLVE7QFM5 dwmkUMYtlpWbTK10YZ30 X8WsTniztXPzeLC+PGRp yhGfsLmlZL7ePrSr u8nmm2SkZWrjI3BiEXFk HOhgXpf9COTtANM4oOL2 zC7pLRRuSYoyt5I6xEC3 S7MdzuWnvf5ze4lg JVDgTHkhO94ihYRyv1F8 ZECjlWH3XARdjSbjPdEk yC59Ccr+VYKvaKles7Yv Fnpru3cmv9swmJk8 IjMwJSIgdmFsaWduPSJ0 w7VgCi94O31lEMpdNABc YQCyGBPtIQVfkNktxc8v tY8cJf3+PGNvbCB3 nOA7oM8xAUHrLrC4QQle P997GrXriXWbBrzjx0vp o5ztmCa4GsEdEJCfmdVk dFgyKFW0b4OjTu55 V37yQNrtRRCbGEStBUXg LAXfaYhoud6inF9wHa6+ IR7wr6vgvm75bY35pUP+ DBXyTGO8jBqjMZfe LBZveC5qJWssGnY7OGQw UvBdqA85pVWjWPbsSt1f pNlpgMvnVP7wKWOtqsup x140JxDbc0phXLUy iXAdRUvkUJK8P49mt9C3 ABXoDINmCZM0yKN1qK1d bGlnbjogbGVmdDsgdmVy hZstZXyiYUddP459 IHRvcDsnPlBhdGllbnQg VqZfETy3O7YsRyv9XDCj xQcuOR5xhHJyEVevPy7u eXmagYniQD1iASGh mugux244DdWlt3rwBRAr xFOdZMlfVUO8B86bb2C2 EHMwZAFrAPP8pSX5vO9s bGlnbjogbGVmdDsg jmTzgEvfHYdsIXrrV959 IHRvcDsnPkJpcnRoIERh zIK4PG37TH65hCHmr1V7 tYV7S3SpWTQcmzsi ctoglFE7OJJkTSFuvJ88 Tv0mcEyvRv1tPHGoZXD7 TIPjhQGsE9TaoU2cNmGa ZLAzMFDfP5KvlSEn QEthC239MOiaJjP2RSPn wjWuI1TqMOWroLrpCfB7 q3C2Pv5WV4X9UC72YF52 yIOob8K4kAK0K6Oy LJRcwiyjujmcyUU3VOMi VRItkK54Np1ibCenLw7c PEDwPLE8EALeqJDrM0Vc sS0xHsFiIFFfHDUf I1CeyWUsXFxmU234BTlg GmU5HEWezkOlD4SmAGNl cSoaGrT9t1K7Zl0SGFw1 MX08BH39jUXdt2A9 qMS0R3PuAWLbaigyutst sHG2JMOzDMApdV88Mh1y eFqnOo3lEAVxHXE8GBRz cLWgP2HbfE4dKvWc WJJlPYJkA9RniKOmWDki W692MZehAvG1VHFmkgAk D5LlPVYckTwfLuE3n1A4 Sj2LBQVaFU35MFH8 bAI7FC11JH84K6FcSayf dGFibGU+PHRhYmxlIHdp ZHRoPScxMDAlJyBzdHls JH6lFg3jBUQhXKAc sUblcCGgWqTao2agQQWf WVlvSF5opXqqQ7HznNC8 VHPct6q0Vr57Y30yA0Cg dXA+GQQgaYV7rEO2 jE0wYaAsBdL1PRyjJ277 CeYskQWlShrjh4qtd1cg dIu7NoH5SZXfldNolAad QFA9r5TpRy32Z99d IHdpZHRoPSIxNSUiIHZh nOrntl9keA1oZz9+PGNv pMB9mLZ7aE5nKqTuAdI7 TTaaK208MvJymMXw Etgsf4ykm2ozzFf8WtPl ZRGhprGimDuwVIK5s5Wj Sx97R7OfdZgwy5IeGsh1 sd09qSDem9S6mLF0 T5PuHRKemfhglQZmfEwc AO1uDMYgfbmvFFQgtU1x SICiP2r1PdBjRfZ4VBfj X8UeceW0OEBdyHRg PVjxKCJ3T12nd6C0DGGd QHOfUSM0lRX0iE2ikGrv bjogbGVmdDsgdmVydGlj YKocHGnoV227BFXd uNwoLZLpaB7eFOPovGWa yQzjPT1sVSHzzeqxUehV TEJFUlQsIFNIRUxCWSBM PSYGZtL8K8JaHry4 TUZpxCstVH5dbCZjYZok Oh6dfUqwsXyyIW5iPLMv mewuLSZwqZ1fWLJtdDEw rCvgXM5rBDAfukrl t941IoOdTQM1KXGvcREl C1KsfL8qZvEpUMUcXXRs X1AulDWqKWzlG126BCnl WlV0RKRjrkLzP5Uo RSNpyPdySzS7l2I5Vw5i Fo2oAv3fOFRxLA09UI36 eBLbc0I3fML0E3UwXYQi fiigdygvhRT8BMLd JLRfkL35aRIhNAqhGx1s l5N1f158EUXjELPchR16 Es3azQufAACapIWXkT0v ffdyz2nujhkzCeOj XUQvFUn7WZl6KNMfuShn HaPeGVZ7ScI8SJA9sVRy nW8muYlifgicbE8gYdl+ KvGkIGLzdzS7Q4Nt Xhq9VZXbmFfdSZ2opOOe OMooWk8fnVcfaGmsCN8m CTXrnyjlBEStxA5wMEKf vBEvkPqwLX2cFQDw jajua785AdCaQZZ6OKKc rBBwP2VruZ0yXuSrNHBu QMHeO7KexEVvCQhoL480 PRqiYvF4FXTckhMu H3RsVPKtkRjhCkY6r2O7 Hn3UEQ0YJCC1B4GjMfv1 UUMmcIjwWE3avTAvMQpg Pz3diJkdqYrnMR6p QNYehlezBTNozR2zTQGv eGJagDizSG9dNGBofynm p634DfJvGFX0KZWxuCBw R2SesH9jQzZmJNDx KLUsX8AzcACyNVgqW417 ZYkrHlF5VBCcqrBlT6Vx ZSRhrSmjDbL3s0R5Kj0S xDLbN3BnZ9i7A5Sm PjwvdHI+SL56ZHSiRG34 iGXyyXAvj1yfvWr6DwYs MPAlPSL9gDizNQltt9Fq AYLeB36xgVNai7P4 IGNvbGxhcHNlOyBlbXB0 xO7cSZhdooscy1rastvm Wvnao5xeic99cU25I76p IHdpZHRoPSIzMCUi TXCyiMbhmb4kmE6iCc1+ WICawQN2xKT8lQ3rSvHn DyA9VHkoG293MrUawPYq Itpgd3ymr0eveBm4 IjIwJSIgdmFsaWduPSJ0 o2OdKs58P05tLMktMXLm KHEjAJVvZPZccYhgok2b bQ1wBf4+VW0hk6bn wx31gJ38dBB+PHRkIHN0 gWuyMXuwLXPmcJ7bYRbq NfG3JLVpBvFdxY42eSAs WIqmWa6fbEgfaAgh SV5xRIYgldynp306OdPy c8iwSKEkuAQrAVjvQXA5 O89dv5I9YWBwIFCdTOI3 iDG5lH0zwMarkeai bGVmdDsgdmVydGljYWwt NGdfA015HOQqbSpxUuMp iEIbR2iycjKGWX3xRktr dGQ+EYGzLGU7oJwy NVtnKTIruF8gVHMmD7p0 PmHzTiQ6CNohW5WslxO5 AGBbcJJoDTGylVKYpO0g jyzvr3igasjcTaLv SZMhPBw8LNw6PJEyrOzh GsHrENJ7TjQ8EGE4tMAw pU0slUcturbrvA1iQoq+ RklOOjwvdGQ+PHRk LYP5kHozXZxpGZMjlV5d XHUeB9d7ShSoYdD9TPuq R9KjxqQ6CGTpwKSoMNJl kUEYoX3uayazd8yo wukfLaHjSDLfBRn1UDj6 IUUzhNwzZfJgUHU3SpQ1 OFD8wNCpnS6crMwsbthz wQ3qJsb+TVJOOjwv dGQ+UFYcVSF9wCsmKFuy EMCewU9iAHJyZ4s4GbDn TgV9FOezH6PypwF2OFEo jPOmSGTlmGAQuT2c bashe5mwygwjXeTfBOPr LGv8OTe6DOOzfFwbTsOc BQX6XhK2TOT7uQRycR7v pFuqcxzzdG7qTlp+ BYG8BQA5IP22AR97A7Qd PjwvdGFibGU+PHRhYmxl IHdpZHRoPScxMDAlJyBz wHgmSU0kTp7iRUSi LWN (more content not included)... Normal [facility] .Auto Diff 08-11-2022 Auto Atkinson % 7 % Normal 04-19 [facility] Comment on above: Performed By: #### 1 [id number], [id number], 5636093, 1947236, [id number] ####[facility] (DEFAULT)[address] [place] [address] Baso Abs# 0.1 x10 Normal 0.0-0.2 [facility] Comment on above: Performed By: #### 1 [id number], [id number], 7267575, 4052979, 98612552 ####[facility] (DEFAULT)[address] [place] [address] Basophils/100 WBC (Bld) 0.8 % Normal 0.2-2.0 [facility] Comment on above: Performed By: #### 1 [id number], [id number], 6612137, 8168057, 69055076 ####[facility] (DEFAULT)[address] [place] [address] Eos Abs# 0.0 x10 Normal 0.0-0.4 [facility] Comment on above: Performed By: #### 1 [id number], [id number], 5160724, 0549807, 31691740 ####[facility] (DEFAULT)[address] [place] [address] 33508 Eosinophils/100 WBC (Bld) 0.4 % Low 0.9-4.0 [facility] Comment on above: Performed By: #### 1 [id number], [id number], 2685673, 5873129, 29199809 ####[facility] (DEFAULT)[address] [place] [address] 35071 Lymph Abs# 3.0 x10 High 1.3-2.9 [facility] Comment on above: Performed By: #### 1 [id number], [id number], 0430846, 3642682, 40897446 ####[facility] (DEFAULT)[address] [place] [address] 58963 Lymphocytes/100 WBC (Bld) 25 % Normal 14-48 [facility] Comment on above: Performed By: #### 1 [id number], [id number], 8170691, 5334368, 59623600 ####[facility] (DEFAULT)[address] [place] [address] 97186 Atkinson Abs# 0.9 x10 High 0.0-0.8 [facility] Comment on above: Performed By: #### 1 [id number], [id number], 8347070, 3797684, 91904283 ####[facility] (DEFAULT)[address] [place] [address] 24487 Neut Abs# 8.1 x10 Normal 1.5-9.2 [facility] Comment on above: Performed By: #### 1 [id number], [id number], 0427148, 9974403, 50153493 ####[facility] (DEFAULT)[address] [place] [address] 18000 Neutrophils/100 WBC (Bld) 66 % Normal 44-88 [facility] Comment on above: Performed By: #### 1 [id number], [id number], 1210613, 6515065, 72645306 ####[facility] (DEFAULT)[address] [place] [address] 88478 [facility] 08-11-2022 eGFR Non AA >60 Invalid Interpretation Code [facility] Comment on above: Performed By: #### 1 [id number], [id number], 4704673, 8454931, 68015791 ####[facility] (DEFAULT)[address] [place] [address] 37497 eGFR AA >60 Invalid Interpretation Code [facility] Comment on above: Performed By: #### 1 [id number], 7835971046, 7189666, 3809992, 30431095 ####[facility] (DEFAULT)[address] [place] [address] 94217 Anion gap [Moles/Vol] 18.5 mmol/L Normal 5.0-19.0 [facility] Comment on above: Performed By: #### 1 [id number], 3752611775, 2447019, 2874999, 20934022 ####[facility] (DEFAULT)[address] [place] [address] 52303 Calcium [Mass/Vol] 8.7 mg/dL Low 8.9-10.3 [facility] Comment on above: Performed By: #### 1 [id number], 6751088564, 1198411, 8784435, 04592705 ####[facility] (DEFAULT)[address] [place] [address] 78604 Chloride [Moles/Vol] 100 mmol/L Low 101-111 [facility] Comment on above: Performed By: #### 1 [id number], 0348699843, 4201864, 8617691, 29637197 ####[facility] (DEFAULT)[address] [place] [address] 18668 CO2 [Moles/Vol] 24 mmol/L Normal 21-32 [facility] Comment on above: Performed By: #### 1 [id number], 6705065415, 5790612, 0780241, 90000340 ####[facility] (DEFAULT)[address] [place] [address] 71806 Creatinine [Mass/Vol] 0.57 mg/dL Low 0.60-1.30 [facility] Comment on above: Performed By: #### 1 [id number], 3769267984, 0445605, 3943677, 14368505 ####[facility] (DEFAULT)[address] [place] [address] 41363 Glucose [Mass/Vol] 98.0 mg/dL Normal 74.0-118.0 [facility] Comment on above: Performed By: #### 1 [id number], 2348565466, 2714228, 1957508, 26907350 ####[facility] (DEFAULT)[address] [place] [address] 63757 Osmolality 274 mOsm/L Invalid Interpretation Code [facility] Comment on above: Performed By: #### 1 [id number], 8857310605, 0507330, 7497341, 99733028 ####[facility] (DEFAULT)[address] [place] [address] 45290 Potassium [Moles/Vol] 4.5 mmol/L Normal 3.6-5.1 [facility] Comment on above: Performed By: #### 1 [id number], 1784519725, 4156774, 9166889, 76527421 ####[facility] (DEFAULT)[address] [place] [address] 34999 Sodium [Moles/Vol] 138.0 mmol/L Normal 136.0-144.0 [facility] Comment on above: Performed By: #### 1 [id number], 4115135608, 0993434, 0722418, 27399117 ####[facility] (DEFAULT)[address] [place] [address] 98529 Urea nitrogen [Mass/Vol] 9 mg/dL Normal 8-26 [facility] Comment on above: Performed By: #### 1 [id number], 5942833851, 6753282, 1191965, 59877007 ####[facility] (DEFAULT)[address] [place] [address] 58186 Urea nitrogen/Creatinine [Mass ratio] 15.7 mg/mg Normal 4.6-16.2 [facility] Comment on above: Performed By: #### 1 [id number], 5961457056, 0913626, 7981239, 58029050 ####[facility] (DEFAULT)[address] [place] [address] CBC w/ Auto Diffon 3 Erythrocyte distribution width (RBC) [Ratio] 14.1 % Normal 11.5-15.0 [facility] Comment on above: Performed By: #### 1 [id number], 1496087939, 7430943, 5598601, 36807637 ####[facility] (DEFAULT)[address] [place] [address] Hematocrit (Bld) [Volume fraction] 36.8 % Normal 33.7-40.4 [facility] Comment on above: Performed By: #### 1 [id number], 0570192766, 9511244, 4425032, 01808342 ####[facility] (DEFAULT)[address] [place] [address] Hemoglobin (Bld) [Mass/Vol] 12.1 g/dL Normal 11.3-15.9 [facility] Comment on above: Performed By: #### 1 [id number], 6039356471, 5518041, 3331666, 94527139 ####[facility] (DEFAULT)[address] [place] [address] Man Diff? Auto Invalid Interpretation Code [facility] Comment on above: Performed By: #### 1 [id number], 6503631521, 5620733, 7658082, 31693704 ####[facility] (DEFAULT)[address] [place] [address] MCH (RBC) [Entitic mass] 28 pg Normal 24-34 [facility] Comment on above: Performed By: #### 1 [id number], 9758822801, 6316970, 0235204, 38060460 ####[facility] (DEFAULT)[address] [place] [address] MCHC (RBC) [Mass/Vol] 33 g/dL Normal 26-37 [facility] Comment on above: Performed By: #### 1 [id number], 6328583531, 0817470, 3678200, 57277020 ####[facility] (DEFAULT)[address] [place] [address] 89269 MCV (RBC) [Entitic vol] 85 fL Normal 81-100 [facility] Comment on above: Performed By: #### 1 [id number], 9779431345, 1212750, 7915407, 99918935 ####[facility] (DEFAULT)[address] [place] [address] 12165 Platelet 367 x10 Normal 138-427 [facility] Comment on above: Performed By: #### 1 [id number], 8253438283, 1236993, 2975143, 04941750 ####[facility] (DEFAULT)[address] [place] [address] 76647 Platelet mean volume (Bld) [Entitic vol] 8.1 fL Normal 6.3-10.2 [facility] Comment on above: Performed By: #### 1 [id number], 0213350686, 8363632, 4992574, 55694480 ####[facility] (DEFAULT)[address] [place] [address] 92063 RBC 4.33 x10 Normal 3.70-5.30 [facility] Comment on above: Performed By: #### 1 [id number], 6489277806, 2235389, 1059065, 19311241 ####[facility] (DEFAULT)[address] [place] [address] 43217 WBC 12.2 x10 High 3.5-10.5 [facility] Comment on above: Performed By: #### 1 [id number], 1542368289, 0129645, 5056812, 83271925 ####[facility] (DEFAULT)[address] [place] [address] 90957 ED Clinical Summaryon 2022 ED Clinical Summary [facility] - Emergency Department [address] [place], [place] [id number] ED Clinical Summary PERSON INFORMATION Name: LIA DESAI Age: 21 Years Sex: FEMALE : 2000 MRN: Acct#: Visit Reason: Vaginal bleeding - < 20 wks ; 7 WEEKS, VAGINAL BLEEDING Arrival: 08/11/2022 12:41:34 Discharge: 08/11/2022 16:30:00 LOS: 000 03:49 Check In: 08/11/2022 12:41:34 Checkout:08/11/2022 16:30:00 Address: [facility] [address] [address] PCP: Provider, None PROVIDER INFORMATION Provider Role Assigned Unassigned Adamaris Jaeger PA-C ED PA 08/11/2022 12:44:39 Arabella Romano MOTOR CARRIER INSPECTOR Nurse 08/11/2022 12:45:45 VITALS INFORMATION Vital Sign [...] Resolved Disease caused by 2019 novel coronavirus ([id number]): Onset on 11/23/2020 at 20 years. Resolved. Comments: 11/23/2020 CDT 16:07 CDT - SYSTEM Problem added by Rule (IC_COVID19_AUTO_PRO BLEM) following 2019 Novel Coronavirus (CoVID-19), MILY L from Nasopharyngeal Swab collected on 22-NOV-2020 16:44:00 EDT tested positive for COVID-19. no history (330821516): Resolved. Contact dermatitis (59994215): Resolved.. Surgical history: Tonsillectomy (754513803).. Family history: No family history items have [...] quant draw (more content not included)... Normal [facility] ED Note - Provideron 023 ED Note [...] Resolved Disease caused by 2019 novel coronavirus ([id number]): Onset on 11/23/2020 at 20 years. Resolved. Comments: 11/23/2020 CDT 16:07 CDT - SYSTEM Problem added by Rule (IC_COVID19_AUTO_PRO BLEM) following 2019 Novel Coronavirus (CoVID-19), MILY L from Nasopharyngeal Swab collected on 22-NOV-2020 16:44:00 EDT tested positive for COVID-19. no history (265560367): Resolved. Contact dermatitis (60468403): Resolved.. Surgical history: Tonsillectomy (050159559).. Family history: No family history items have [...] % Auto Lymph % 25 % Auto Atkinson % 7 % Auto Eos % 0.4 % LOW Auto Baso (more content not included)... Normal [facility] ED Note-Nursingon 08-11-2022 ED Note-Nursing Patient walked into the ED with c/o abdominal cramping and bleeding. Patient is 7 weeks . Symptoms started today and cramping is getting worse. Denies taking any medicine for pain. Did have right lower back pain a few days ago. Was 15 weeks in may, had a miscarriage and had to do a D and C. Normal [facility] ED Patient Summaryon 023 ED Patient Summary [facility] - Emergency Department [address] [place] [address] PATIENT DISCHARGE INSTRUCTIONS Patient Information Name: LIA DESAI Age: 21 Years Date of : 2000 Reason For Visit: Vaginal bleeding - < 20 wks ; 7 WEEKS, VAGINAL BLEEDING Arrival Time: 08/11/2022 12:41:34 Primary Care Physician: Provider, None Attending Physician: Andres Duval Comment: Visit Diagnosis: Diagnoses This Visit Miscarriage (O03.9) Vaginal bleeding - < 20 wks ([id number]) The Pharmacy at [facility] is open Saturday through Saturday from [...] and/or drug addiction problems; contact the [facility] 29/10 Crisis Hotline -Text 7DANC kj 268777. 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 Emergency Department were for an urgent problem and are not intended as complete care. It is important for you to follow up with a doctor, nurse practitioner, or physician?s dental assistant instructor for ongoing care. If your symptoms become [...] we can reach you if necessary. [facility] Emergency Department has provided you with a complete list of medications post discharge. Please inform your tobacco drummer/provider of your visit and for further instruction [...] may ma (more content not included)... Normal [facility] Extra Redon 08-11-2022 Tube Collected Yes Invalid Interpretation Code [facility] Comment on above: Performed By: #### 1 [id number], [id number], 2373146, 7909480, 57454979 ####[facility] (DEFAULT)[address] [place] [address] UA Mffql7rc 08-11-2022 UA Amorph. Rare [facility] Comment on above: Order Comment: Urina lysis Microscopic order added on by [employer] Expert Rules system. Performed By: #### 1 [id number], [id number] ####[facility] (DEFAULT)[address] [place] [address] UA Bacteria Trace [facility] Comment on above: Order Comment: Urina lysis Microscopic order added on by [employer] Expert Rules system. Performed By: #### 1 [id number], [id number] ####[facility] (DEFAULT)[address] [place] [address] UA Mucous Trace [facility] Comment on above: Order Comment: Urina lysis Microscopic order added on by [employer] Expert Rules system. Performed By: #### 1 [id number], [id number] ####[facility] (DEFAULT)[address] [place] [address] UA RBC 0-2 [facility] Comment on above: Order Comment: Urina lysis Microscopic order added on by [employer] Expert Rules system. Performed By: #### 1 [id number], [id number] ####[facility] (DEFAULT)[address] [place] [address] UA WBC 0-2 [facility] Comment on above: Order Comment: Urina lysis Microscopic order added on by [employer] Expert Rules system. Performed By: #### 1 [id number], [id number] ####[facility] (DEFAULT)[address] [place] [address] UA w Culture if Ind Standard on 08-11-2022 Breakpoint UA [facility] Comment on above: Performed By: #### 1 [id number], [id number] ####[facility] (DEFAULT)[address] [place] [address] 99989 Color (U) Yellow Normal [facility] Comment on above: Performed By: #### 1 [id number], [id number] ####[facility] (DEFAULT)[address] [place] [address] 59273 Culture? Not Indicated Invalid Interpretation Code [facility] Comment on above: Result Comment: Resu lt created by rule GL_MAGR_ADD_UA_CULT Result created by rule GL_MAGR_ADD_UA_CULT Result created by rule GL_MAGR_ADD_UA_CULT1 Performed By: #### 1 [id number], [id number] ####[facility] (DEFAULT)[address] [place] [address] 73118 Glucose (U) [Mass/Vol] Negative Normal [facility] Comment on above: Performed By: #### 1 [id number], [id number] ####[facility] (DEFAULT)[address] [place] [address] 94467 Ketones Ql (U) Negative [facility] Comment on above: Performed By: #### 1 [id number], [id number] ####[facility] (DEFAULT)[address] [place] [address] 56792 Micro? Indicated Invalid Interpretation Code [facility] Comment on above: Result Comment: Resu lt created by rule GL_MAGR_ADD_UA_MICRO Performed By: #### 1 [id number], [id number] ####[facility] (DEFAULT)[address] [place] [address] 94345 UA Bilirubin Negative Normal [facility] Comment on above: Performed By: #### 1 [id number], [id number] ####[facility] (DEFAULT)[address] [place] [address] 96721 UA Blood MODERATE Abnormal NEGATIVE [facility] Comment on above: Performed By: #### 1 [id number], [id number] ####[facility] (DEFAULT)[address] [place] [address] 95343 UA Clarity CLEAR Normal CLEAR [facility] Comment on above: Performed By: #### 1 [id number], [id number] ####[facility] (DEFAULT)[address] [place] [address] 74234 UA Leuk Est Negative Normal NEGATIVE [facility] Comment on above: Performed By: #### 1 [id number], [id number] ####[facility] (DEFAULT)[address] [place] [address] UA Nitrite Negative Normal NEGATIVE [facility] Comment on above: Performed By: #### 1 [id number], [id number] ####[facility] (DEFAULT)[address] [place] [address] UA pH 7.0 Normal 5-8 [facility] Comment on above: Performed By: #### 1 [id number], [id number] ####[facility] (DEFAULT)[address] [place] [address] UA Protein Negative Normal NEGATIVE [facility] Comment on above: Performed By: #### 1 [id number], [id number] ####[facility] (DEFAULT)[address] [place] [address] UA Spec Grav <=1.005 Normal 1.001-1.035 [facility] Comment on above: Performed By: #### 1 [id number], [id number] ####[facility] (DEFAULT)[address] [place] [address] UA Urobilinogen 0.2 mg/dL Normal 0.2-1.0 [facility] Comment on above: Performed By: #### 1 [id number], [id number] ####[facility] (DEFAULT)[address] [place] [address] Urine Source Clean Catch Normal [facility] Comment on above: Performed By: #### 1 [id number], [id number] ####[facility] (DEFAULT)[address] [place] [address] US 1st Trimesteron 08-11-2022 US 1st Trimester EXAM: US 1st Trimester HISTORY: vaginal bleeding, 7 weeks COMPARISON: 08/08/2022. TECHNIQUE: Ultrasound obstetrical first trimester. FINDINGS: Single intrauterine gestation which has migrated into the lower uterine segment. No cardiac activity is identified. Yolk sac is present. Racine-rump length measurement of 1.1 cm yielding estimated [...] Signature): Jori Churchill 08/11/22 4:11 pm Technologist: [facility] Transvaginalon 08-11-2022 US Transvaginal EXAM: US 1st Trimester HISTORY: vaginal bleeding, 7 weeks COMPARISON: 08/08/2022. TECHNIQUE: Ultrasound obstetrical first trimester. FINDINGS: Single intrauterine gestation which has migrated into the lower uterine segment. No cardiac activity is identified. Yolk sac is present. Racine-rump length measurement of 1.1 cm yielding estimated [...] Churchill 08/11/22 4:11 pm Technologist: GANESH Myers [facility] hCG Quantitativeon hCG Quantitative 4616.0 mIU/mL High 0.0-0.6 [facility] Comment on above: Result Comment: Post -Menopausal Reference Range is: 0.1-11.6 mIU/mL Performed By: #### 1 [id number], [id number], [id number], [id number], [id number] ####[facility] (DEFAULT)[address] [place] [address] US PREG TVon 08-08-2022 US PREG TV [...] by: CHRISTIAN KATE Date: 2022-08-08 16:56 Normal [facility] Coding Summaryon 06-19-2022 Coding Summary HTMLBase 64 BlfnsbvzVKc0bPx+PGhl YWQ+ZN9BZBFaU65gpAWz pD8SL5mACR0XDBEZLZRB VE4DSP9gpGD4YOieW2Sl biAv WonyaDVxAG30OYs8HML0 oGxxANbccH0fhMUjB8n1 NsUiBY42nY97OEsfAWGv HgZ7RzZjhixkuQYt Y7zfFuJspJNoFqm+PHRh YmxlIHdpZHRoPScxMDAl LuJjjZfkHU6nNv2oIBXt LWNvbGxhcHNlOiBj t5nzWDBwZEpwPR3owLwb W0GhbQA1ALQqc3a0Ui46 dHI+YNKzZKG6hRusTZdv p084UdXgv2rrNON5 xWCzKIhiUCC8G66aw5U3 SJZnLRUtAZR6wYD8oU9n bYpvjtjmB5DcvNCqBtS5 RWD5hDEpfS4lyTmg ykkmbT0lTgq+R05PQL8M MFKPOY2CTvt7T0ObUkqr dHI+YR39ONElBT01rKCf qFYom2ticFh5LdKh NMOsFVI5sQliPTjpw2Ih DFKuM73isNCbk6J5HMVs gCoyqFVtZgAswIP2kY4q KWholhpcr7gvenbu Nnhnb7dbjz32zS78I82u EJpoBRWtFLI5RUSgLWLf hDnxug4orA7pEl4+IDxj n5hog1mjmOt8VlGq TVHwzdRmyGshYSU1p7Ez Hp27L8DgnDeyf2ExOfx3 yd34gJHvx5C2vYO9XJnt SOPveX2gISsuMuP2 KSRcEbPyvB00jDCuWYfk Pl0krFjywEehSL1fCZRs zoigLGJklS6xUPZvePSe mUkiUU7bLIDnagjd p240GbZhTRD6KYOctQIc Z0RbqU3pBzBuLBBcSXHd N6UasZLlYUalW902KNff RrO5CQFudvKdK9Es ICEelSqsNaK5p3W4Yx2M d4DbddeiKJC9SFgmXQLp WpU9KbUiMiL8B1AgIzh6 FKBxgXyuOM2fU2Fx MBMelbnfykmheGD1HIPv QFWvgZ55oKHfUBlbUg2r l3R7f242TJXlNSKqfA27 Ab9uvBzfGBDznFDA yK5wwyidl5qluhisFeGt MHVlNRd8YZq0MGLmxChz TwJpTNO8GiP4WNI3bNUg zX4vsLcslamdtM9x Oyc+G87gjT3vEFF3WVJ2 jqcdQVNhvnIzSD75FX08 N0AfFuwtfJCwkGN+PGRp czAugIeqAQ3sOsKs q2gge8YoZElfE4ElTDWm MAjuAjs5DSRfLDR8kUZ6 sS7bOBMjYVvhf2C7nZN9 P3UdvyAkan6tb6qn VCAoSWcqH33poDYfn9V7 XYIdoHU1YOPehKwgCuDl aT00Wzj+ASYtyHlrc4Ns Prnvr2nuv3kioVs7 IjMwJSIgdmFsaWduPSJ0 o8CvHg83S21yRPeoUHYr SGWoIZWkOCHhgYxnnv3l aU0kYf8+PGNvbCB3 sSD6rM5gNKBpKdR8ITir R683AuXpaTJyEnnsn9yq n1xisRa0YqVlJSVqxyKl uDovTTX5h6NeCc69 S59mURnqZQSqAFGhUSVy WPKyeYewau6ntE9uRp3+ SM8wt8ukfq34yP81bNY+ MBHvMNI3aFogDQsc MMZlyI8dVRhkZmA6OZYu XwIvbK09yEHkLBgcWu1l hIhytNioRU9kWSWmhuwv f032UlTgc8rdSZVk rRMeLDwlHXZ7V67ee1B5 EYVpDYJvNPV7dJD2zY4u bGlnbjogbGVmdDsgdmVy tVorNUzwGSapC684 IHRvcDsnPlBhdGllbnQg TyMeWYw3Z6RfLnh0ODUb gUpfDB1pjPYsTLdlWm9p gXrvpHecAH3qMJNs hsmlw415GkFuk5etQFZy iMXcKNpjZFN2C08zb5R8 DYYpAPVcTRF6cVC0oV6t bGlnbjogbGVmdDsg feBbiNggSDuzRXndF297 IHRvcDsnPkJpcnRoIERh nTV2IP26SX16kUOln0K5 dIP6W1JkDWQvhunx zyuauFG1NJLeKTFwcU47 Ry9ruFylNb3fRWVyLXX0 PGRwoMAzF8AjeT6nFbTj RMHfHQBcY5BccQZf JWdqD155YAmvIbH2PKFm yhBcL5UaDDWdpKnvLbX2 v4I4Ob1KT7T1UR20FB03 pUQck5X8bHI8U8Xf SVXxbtaaaddagLQ3VJGs AEXpaU00Oe5riTbjRt8f ZDSjNFJ8XILxgMTrW8Hk iF5fBoLzBHFfCVIh L8EkzHTtEImbP377JTye DgD3LHXmwyWuO5YtVVEu oFjyHmM8h7T7Pe5FDHb0 JE85TS91lTPsc1Q7 qMS7B2PaLYMjkgivswdm bTI8RMLpZTCgrH20Jc7n nSonZi6gWYLqQDS6UGGs yKUdC2QexO9sSrUs SGFoTTSuQ3ZtdFQaOOcz M597YRrePyW5YJMjqgOc L1IpOODbiWthJmJ2e9P3 Tr8VGWUgQE77EWG4 dPG6IO83RU83X3KkPvwi dGFibGU+PHRhYmxlIHdp ZHRoPScxMDAlJyBzdHls CV0fLd8uZKLhRKEs eIjbfTAsUaIvi5whSQZi MKueSZ7acGpzA8IawNV8 AXFpy5l1Kj74B19kP8Qu dXA+TOPyaHX4jSN6 kU7zTlVqSpF6CJmzQ038 HtYasDLhBqlve4shq6fk eVw0JiT6CYUwhsKfvWjc IQK9q0TbAx65O54p IHdpZHRoPSIxNSUiIHZh mKjcvy5oxR0dYd5+PGNv jSJ1vYE3lG3zUcBpDnX9 KElgE631ZcQcmLJw Zzywz6ovn2evbOk2CzNw PTVhzvNisRmmGYI7d5Sb Gk30S3AtpNclb4YvMvl3 fm40mSFos4V7oKP4 L0JfZUXvrwpwnKQtuRpa NY7oANXyirxvJMZpaJ1f TAAlI2c1YpEdKjI6DDfd W9NruaF4JQYrgUYp PSthNRC7C92pz7Z5TWFr NGBsUMA9hVJ0zN3xzJbe bjogbGVmdDsgdmVydGlj QOakIIecG796DMKv gXsaUYBevH7sTHVgaTPc vTlsJF7oFJLjqdvjAggF TEJFUlQsIFNIRUxCWSBM MQDHXwT2W5KiWhl4 WWCatKxuAD4ipKHbNFbh Dk4itZmteCtxDV8kSIQy wgbmOSXtjG1zRJInbANu yHkgHL5iHKIjjpjq m198QtOpYKV6XNAsfIUh M9SvuY3oEcGmGIUbDKIm E7ChsQPjUPupU972AXcq RkB6XGCpotCtZ5Se BBMoqHlfStD9i5M8Bj0i Xc1wSs8jCKTsXL60RD32 bFOwl0O9iQW6S6QzCQWu ktsnsgtjrBC4OJYf XCZyxJ13xBDrKMzgTc8n a8J6n576TVYwYVMcrS50 Hb0aaMneLXBhcJQPrG1b jhwiv9npgeinUgLm RBAcQZg2ZIu2EYVhySxq RpLtAYS4EvQ8VIE0xPFf nV5taDfxlacaaO5rMxl+ KnVvBEVshvB9P3Qb Nck4CCMswGwyXI2cbXBy CTtwAw6tgXwwzJvnLX9t DOZujztqSPKqqL3eVRAa sEImvQcgHM2rCZOl qqyya847IjJdNDP4VOMt xVLcS6OrfF6gRqFgINXl LHYlF3NecXLhENynA227 FGckMyG2ZDXsaaEk U0YqYKKzfNzeRmR7z1O0 Oq2SRT0OWJH5P3CuBva3 YZMkwGalAC3rtCDhFEos Xn9nuEgcaMjdRR6y ENPtfpidLUGhzA4pFKLx fPKzfGvxEC8mUCLoodfx t597QwRaNBE3PGBekKWn O3KgoH5fNyHtJOVz ZBCwP7NdwSDkPZmwP747 EQrhXqE7PRSzqsWgX1Dn HAJgsKztPnR3n1H9Ex1X UDwvdGQ+IL95dj18 D7JfFznuHye7WVRyZNB2 vBW4cG5wPLMfZTnpb4B1 iSX6G2XgpwWzla6jj5lr EBPiTMzdQ67cdNLp f1Q5IGPyuDV3ZSRujYda LhLwxN71Swn+PGNvbGdy m5OhZjufl6cjt9mloWz1 IjMwJSIgdmFsaWdu NCD9n6UiDp05J75rNKqi ZHRoPSIzMCUiIHZhbGln nk2viC4eEu0+PGNvbCB3 bBZ4eZ8iEvYiReH3 VGlzR938UtMwjRXqJzih h4bud3scoLr8BiPiOVWg iyDonTudRCP2c8XcYk91 J7WctLtwe2KjIoe8 cv93cPPgb4K0mRA1Q1Me PBOwbogkvSDxrOgaIF1h VTRpuvlbWSZzjW9tWELh F1k5FsEeLzD1PDdw N2YljsB7ECVavNVfIVPv fZGQjX7zwfmmb1ofyduc SjSyGMEyBHh3LKe9NOGd bEfrKbTtLUH9VnE1 QIH6eMHdfY3dkYpjjhzg eA4mDjx+URy4w4xhwSHr PG8sbMW6VB92QR87tHMd y8G3fPI3B1OmNBXn udxvteyelAI0QTWpLFPm qT55Ng1yvVacEc9zLSPj OTV9PQKibJUgV5EuhF5e WyLeEOEtVLZuU5Gs yPMkRBqsO869GOpjIpH7 ZHSbplAkY9RhZHRzjZla JyG0t6M9Zu5YIN77NW83 LI29pGGyv7U6wUF4 T2FhVXNxrjwwaqszaKZ5 YKVrPAIlxF58Ip0hdZdk Jg4mVFCfTAE8RYDkfOIl K8VfrT5yDmIyJJSg UVPbI0ZmnQHnLFhqP252 RFgeHxN8XAWunoEyH2Qz RLLpePfwKaD2u7D8Xd7D Bh20WY28HE76bYVe z3K1aIC4D6UbIBIcrgjo [id number] Qn1alXdeKw2dVBYpIKS1 PHYklPJmC2YqqQ2q EjVdOQTgHXOmY9EwnYSx BEnpQ376AYhgFcU0BVBs efZiH9NsBODpnYhhXbF2 g4S6Oi5PBLciilx4 M1XnNsopkHR+SI84HTWn TI42tAXtdSTwv3kfgUp9 SkIjMPAvAPK9cBuoRKxt l0LyAGMzU85qxJUc c2U (more content not included)... Normal [facility] C Throaton 06-14-2022 C Throat Ordered by Discern. Normal throat jonny isolated No pathogens isolated Normal [facility] Comment on above: Performed By: #### 1 [id number] #### [facility] (DEFAULT) [address] [place] [address] ED Clinical Summaryon 2022 ED Clinical Summary [facility] ? Urgent Care [address] [place], [place] [id number] Clinical Summary PERSON INFORMATION Name: LIA DESAI Age: 21 Years Sex: FEMALE : 2000 MRN: Acct#: Visit Reason: UC - Sore Throat; UC - Body Aches; SORE THROAT, COUGH, BODY ACHES Arrival: 06/12/2022 16:17:17 Discharge: 06/12/2022 17:23:00 LOS: 000 01:06 Check In: 06/12/2022 16:17:17 Checkout: 06/12/2022 17:23:00 Address: [address] [place], [place] [id number] PCP: Provider, None PROVIDER INFORMATION Provider Role Assigned Unassigned Birdie James MOTOR CARRIER INSPECTOR Nurse 06/12/2022 16:19:28 Nelson Sharma PA-C ED PA 06/12/2022 16:22:15 VITALS INFORMATION Vital Sign Triage Latest Temperature Tympanic Temperature Temporal Artery Pulse Rate O2 Sat 98 % 98 % Respiratory Rate Blood Pressure /76 mmHg /76 mmHg MEDICAL INFORMATION Medications Given: Allergy Information: Adhesive Bandage; Zithromax PHYSICIAN DOCUMENTATION DISCHARGE INFORMATION: Discharge Disposition: Home Discharge Location: Home PATIENT EDUCATION INFORMATION Instructions: Cough, Adult, Vjuz-yb-Pwiy; Pharyngitis, Yyyl-zd-Xhww Follow-Up: With: Address: When: None Provider [address] [place] [address] Within 1 week Comments: Please follow-up with your primary care provider, call the office schedule an appointment to be seen in a week or sooner for continued care, you will be notified with your results, please take as Tessalon Perles as prescribed, take gsmo-cjm-dafyycu ibuprofen and Tylenol as needed for fevers, body aches, or headaches. Drink plenty of water to stay hydrated, and return back to the urgent care center for any worsening symptoms, concerns, or complications. DIAGNOSIS: 1:Pharyngitis; 2:Cough Patient Understands: Yes - Patient/family/careg iver verbalizes understanding of instructions given Comment: Normal [facility] ED Patient Summaryon 023 ED Patient Summary [facility] ? Urgent Care [address] [place] [address] [place] [address] PATIENT DISCHARGE INSTRUCTIONS Patient Information Name: LIA DESAI Age: 21 Years Date of : 2000 Reason For Visit: UC - Sore Throat; UC - Body Aches; SORE THROAT, COUGH, BODY ACHES Arrival Time: 06/12/2022 16:17:17 Primary Care Physician: Provider, None Attending Physician: Nelson Sharma PA-C Comment: Patient Education With: Address: When: None Provider [address] [place] [address] Within 1 week Comments: Please follow-up with your primary care provider, call the office schedule an appointment to be seen in a week or sooner for continued care, you will be notified with your results, please take as Tessalon Perles as prescribed, take dkbm-szi-clsnhcw ibuprofen and Tylenol as needed for fevers, [...] these instructions at home: Medicines ? Take xgmw-drs-naenyqw and prescription medicines only as told by [...] things can cause a cough. ? Take nhjy-taf-wkxznno and prescription medicines only as told by [...] provider. Document Revised: 05/13/2020 Document Reviewed: 04/13/2019 [employer] Patient Education ? 2021 [employer]it. Pharyngitis Pharyngitis is a sore throat (pharynx). [...] Symptoms may (more content not included)... Normal [facility] Strep Aon 06-12-2022 Strep procedure control Pass Normal [facility] Comment on above: Performed By: #### 1 [id number] #### [facility] (DEFAULT) [address] [place] [id number] Streptococcus A Negative Normal Negative [facility] Comment on above: Performed By: #### 1 [id number] #### [facility] (DEFAULT) [address] [place] [address] Urgent [facility] 023 Urgent Care Record [facility] ? Urgent Care [address] [place] [address] PATIENT DISCHARGE INSTRUCTIONS Patient Information Name: LIA DESAI Age: 21 Years Date of : 2000 [facility]: [id number] Reason For Visit: UC - Sore Throat; UC - Body Aches; SORE THROAT, COUGH, BODY ACHES Arrival Time: 06/12/2022 16:17:17 Primary Care Physician: Provider, None Attending Physician: Nelson Sharma PA-C Comment: Visit Diagnosis: Diagnoses This Visit Cough (R05.9) Pharyngitis (J02.9) UC - Body Aches ([id number]) UC - Sore Throat ([id number]) If you received any narcotics, sedation, or [...] documents With: Address: When: None Provider [address] [place] [address] Within 1 week Comments: Please follow-up with your primary care provider, call the office schedule an appointment to be seen in a week or sooner for continued care, you will be notified with your results, please take as Tessalon Perles as prescribed, take eitt-tza-fvxgohc ibuprofen and Tylenol as needed for fevers, body aches, or headaches. Drink plenty of water to stay hydrated, and return back to the urgent care center for any worsening symptoms, concerns, or complications. Medication Information: The exam and treatment you received today in the [facility] were for an urgent problem and are not intended as complete care. It is important for you to follow up with a doctor, nurse practitioner, or physician?s dental assistant instructor for ongoing care. If your symptoms become [...] we can reach you if necessary. [facility] has provided you with a complete list of medications post discharge. Please inform your tobacco drummer/provider of your visit and for further instruction on these medications. Any specific questions regarding your chronic medications and dosages should be discussed with your primary care physician(s) and/or pharmacist. New Medications [facility] [address], [place] [id number], [phone] benzonatate (Tessalon Perles 100 mg oral capsule) [...] these instructions at home: Medicines ? Take tzzh-swi-gmxpvgh and prescription medicines only as told by your doctor. (more content not included)... Normal [facility] US PELVIS AND TRANSVAGon US PELVIS AND [...] by: ANGELA SCOTT Date: 2022-06-04 06:57 Normal [facility] US PREG TVon 05-16-2022 US PREG [...] by: CHRISTIAN KATE Date: 2022-05-16 18:15 Normal [facility] HEP B SURFACE ANTIGEN SCREEN on 04-20-2022 HBsAg Screen Negative Normal Negative [facility] Comment on above: Performed By: #### H BSANS #### [facility] [address] [address] [address] Jeronimo Melgar HEPATITIS C VIRUS AB W/ REFL EX QUANTon 04-20-2022 HCV AB <0.1 Normal 0.0-0.9 [facility] Comment on above: Performed By: #### H CVPCRR #### [facility] [address] [address] [address] Jeronimo Melgar Interpretation: Comment Normal [facility] Comment on above: Result Comment: Nega tive Not infected with HCV, unless recent infection is suspected or other evidence exists to indicate HCV infection. Performed By: #### H CVPCRR #### [facility] [address] [place] [address] Dr. Jeronimo Melgar HIV 1 AND 2 WITH REFLEXon HIV Screen 4th Generation wRfx Non-Reactive Normal Non Reactive [facility] Comment on above: Result Comment: HIV Negative HIV-1/HIV-2 antibodies and HIV-1 p24 antigen were NOT detected. There is no laboratory evidence of HIV infection. Performed By: #### H IV12 #### [facility] [address] [place] [address] Dr. Jeronimo Melgar RPR QUANTon 04-20-2022 Rapid Plasma Reagin, Quant Non-Reactive Normal NonRea<1:1 [facility] Comment on above: Result Comment: Plea se Note: This test does not meet current guidelines for screening and diagnosis of syphilis. This test is intended for following treatment response in patients being treated for syphilis infection. To screen for syphilis infection, a reflex cascade that includes both RPR and a treponema-specific assay should be utilized, such as Treponema pallidum (Syphilis) Screening [place] (320809) or Rapid Plasma Reagin (RPR) Test With Reflex to Quantitative RPR and Confirmatory Treponema pallidum Antibodies (698528). Performed By: #### R PRQ #### [facility] [address] [place] [address] Dr. Jeronimo Melgar RUBELLA AB IGGon 04-20-2022 Rubella Antibodies, IgG 1.85 index Normal Immune >0.99 [facility] Comment on above: Result Comment: Non- immune <0.90 Equivocal 0.90 - 0.99 Immune >0.99 Performed By: #### B OX #### [facility] [address] [place] [address] Dr. Jeronimo Melgar BOX TEST SENT OUTon 04-19-19 23 SENT TO REF LAB 04/19/2022 Normal [facility] Comment on above: Performed By: #### B OX #### [facility] [address] [place] [address] Dr. Jeronimo Melgar CBC AUTO DIFFon 04-19-2022 BASO # 0.1 103/ul Normal 0.0-0.1 [facility] Comment on above: Performed By: #### B OX #### [facility] [address] [place] [address] Dr. Jeronimo Melgar Basophils/100 WBC (Bld) 0.5 % Normal 0.2-2.0 [facility] Comment on above: Performed By: #### B OX #### [facility] [address] [place] [address] Dr. Jeronimo Melgar EO # 0.1 103/ul Normal 0.0-0.7 [facility] Comment on above: Performed By: #### B OX #### [facility] [address] [place] [address] Dr. Jeronimo Melgar Eosinophils/100 WBC (Bld) 0.7 % Critically low 0.9-7.0 [facility] Comment on above: Performed By: #### B OX #### [facility] [address] [place] [address] Dr. Jeronimo Melgar Erythrocyte distribution width (RBC) [Ratio] 12.8 % Normal 11.0-15.0 [facility] Comment on above: Performed By: #### B OX #### [facility] [address] [place] [address] Dr. Jeronimo Melgar Hematocrit (Bld) [Volume fraction] 43.7 % Normal 36.0-48.0 [facility] Comment on above: Performed By: #### B OX #### [facility] [address] [place] [address] Dr. Jeronimo Melgar Hemoglobin (Bld) [Mass/Vol] 13.1 g/dL Normal 12.0-16.0 [facility] Comment on above: Performed By: #### B OX #### [facility] [address] [place] [address] Dr. Jeronimo Melgar IG # 0.02 10e3/ul Normal 0.00-0.03 [facility] Comment on above: Performed By: #### B OX #### [facility] [address] [place] [address] Dr. Jeronimo Melgar IG % 0.2 % Normal 0.0-0.5 [facility] Comment on above: Performed By: #### B OX #### [facility] [address] [place] [address] Dr. Jeroniom Melgar LYMPH # 2.6 103/ul Normal 1.2-3.8 [facility] Comment on above: Performed By: #### B OX #### [facility] [address] [place] [address] Dr. Jeronimo Melgar Lymphocytes/100 WBC (Bld) 27.3 % Normal 20.5-60.0 [facility] Comment on above: Performed By: #### B OX #### [facility] [address] [place] [address] Dr. Jeronimo Melgar MANUAL DIFF REQ NO Normal [facility] Comment on above: Performed By: #### B OX #### [facility] [address] [place] [address] Dr. Jeronimo Melgar MCH (RBC) [Entitic mass] 27.7 pg Normal 26.7-34.0 [facility] Comment on above: Performed By: #### B OX #### [facility] [address] [place] [address] Dr. Jeronimo Melgar MCHC (RBC) [Mass/Vol] 30.0 g/dL Normal 29.9-35.2 [facility] Comment on above: Performed By: #### B OX #### [facility] [address] [place] [address] Dr. Jeronimo Melgar MCV (RBC) [Entitic vol] 92.4 fL Normal 81.0-99.0 [facility] Comment on above: Performed By: #### B OX #### [facility] [address] [place] [address] Dr. Jeronimo Melgar MONO # 0.8 103/ul Normal 0.3-0.8 [facility] Comment on above: Performed By: #### B OX #### [facility] [address] [place] [address] Dr. Jeronimo Melgar Monocytes/100 WBC (Bld) 7.8 % Normal 1.7-12.0 [facility] Comment on above: Performed By: #### B OX #### [facility] [address] [place] [address] Dr. Jeronimo Melgar NEUT # 6.1 103/ul Normal 1.4-6.5 [facility] Comment on above: Performed By: #### B OX #### [facility] [address] [place] [address] Dr. Jeronimo Melgar Neutrophils/100 WBC (Bld) 63.5 % Normal 43.0-75.0 [facility] Comment on above: Performed By: #### B OX #### [facility] [address] [place] [address] Dr. Jeronimo Melgar Platelet mean volume (Bld) [Entitic vol] 10.7 fL Normal 9.5-13.5 [facility] Comment on above: Performed By: #### B OX #### [facility] [address] [place] [address] Dr. Jeronimo Melgar PLT 399 103/ul Normal 150-450 [facility] Comment on above: Performed By: #### B OX #### [facility] [address] [place] [address] Dr. Jeronimo Melgar RBC 4.73 106/ul Normal 4.20-5.40 [facility] Comment on above: Performed By: #### B OX #### [facility] [address] [place] [address] Dr. Jeronimo Melgar WBC 9.6 103/ul Normal 4.0-11.0 [facility] Comment on above: Performed By: #### B OX #### [facility] [address] [place] [address] Dr. Jeronimo Melgar CULTURE URINEon 04-19-2022 CULTURE URINE Culture Observations: LIGHT GROWTH OF MIXED GENITAL JONNY. NO POTENTIAL PATHOGENS SEEN. Normal [facility] Comment on above: Performed By: #### B OX #### [facility] [address] [place] [address] Dr. Jeronimo Melgar DRUG SCREEN RAPID (URINE)on 04-19-2022 AMP Negative Normal NEGATIVE [facility] Comment on above: Performed By: #### H IV12 #### [facility] [address] [place] [address] Dr. Jeronimo Melgar BAR Negative Normal NEGATIVE [facility] Comment on above: Performed By: #### H IV12 #### [facility] [address] [place] [address] Dr. Jeronimo Melgar BUP Negative Normal NEGATIVE [facility] Comment on above: Performed By: #### H IV12 #### [facility] [address] [place] [address] Dr. Jeronimo Melgar BZO Negative Normal NEGATIVE [facility] Comment on above: Performed By: #### H IV12 #### [facility] [address] [place] [address] Dr. Jeronimo Melgar KRISTINA Negative Normal NEGATIVE [facility] Comment on above: Performed By: #### H IV12 #### [facility] [address] [place] [address] Dr. Jeronimo Melgar CUT-OFFS SEE BELOW Normal [facility] Comment on above: Result Comment: AMP [...] ng/mL Performed By: #### H IV12 #### [facility] [address] [place] [address] Dr. Jeronimo Melgar DRUG CUT HEADER DRUG CLASS TEST SYSTEM CUT-OFF CONCENTRATIONS ARE FOLLOWS: Normal [facility] Comment on above: Performed By: #### H IV12 #### [facility] [address] [place] [address] Dr. Jeronimo Melgar mAMP Negative Normal NEGATIVE [facility] Comment on above: Performed By: #### H IV12 #### [facility] [address] [address] [address] Jeronimo Melgar MTD Negative Normal NEGATIVE [facility] Comment on above: Performed By: #### H IV12 #### [facility] [address] [address] [address] Jeronimo Melgar OPI Negative Normal NEGATIVE [facility] Comment on above: Performed By: #### H IV12 #### [facility] [address] [address] [address] Jeronimo Melgar OXY Negative Normal NEGATIVE [facility] Comment on above: Performed By: #### H IV12 #### [facility] [address] [place] [address] Dr. Jeronimo Melgar PCP Negative Normal NEGATIVE [facility] Comment on above: Performed By: #### H IV12 #### [facility] [address] [address] [address] Jeronimo Melgar PPX Negative Normal NEGATIVE [facility] Comment on above: Performed By: #### H IV12 #### [facility] [address] [address] [address] Jeronimo Melgar TCA Negative Normal NEGATIVE [facility] Comment on above: Performed By: #### H IV12 #### [facility] [address] [address] [address] Jeronimo Melgar THC Negative Normal NEGATIVE [facility] Comment on above: Performed By: #### H IV12 #### [facility] [address] [place] [address] Dr. Jeronimo Melgar GLYCOHEMOGLOBIN A1Con 2022 ADA RECOMMENDATION SEE BELOW Normal [facility] Comment on above: Result Comment: ADA RECOMMENDED LIMIT 4.0 - 6.0 ADA THERAPEUTIC TARGET < 7.0 ACTION SUGGESTED > 7.0 Performed By: #### A 1C #### [facility] [address] [address] [address] Jeronimo Melgar Glucose [Mass/Vol] 100 mg/dL Normal [facility] Comment on above: Performed By: #### A 1C #### [facility] [address] [place] [address] Dr. Jeronimo Melgar HbA1c (Bld) [Mass fraction] 5.1 % Normal 4.5-6.2 [facility] Comment on above: Performed By: #### A 1C #### [facility] [address] [place] [address] Dr. Jeronimo Melgar TYPE AND SCREENon 04-19-2022 TYPE AND SCREEN Negative Normal [facility] Comment on above: Performed By: #### B OX #### [facility] [address] [place] [address] Dr. Jeronimo Melgar CBC AUTO DIFFon 04-02-2022 BASO # 0.0 103/ul Normal 0.0-0.1 [facility] Comment on above: Performed By: #### C BC #### [facility] [address] [place] [address] Dr. Jeronimo Melgar Basophils/100 WBC (Bld) 0.3 % Normal 0.2-2.0 [facility] Comment on above: Performed By: #### C BC #### [facility] [address] [place] [address] Dr. Jeronimo Melgar EO # 0.0 103/ul Normal 0.0-0.7 [facility] Comment on above: Performed By: #### C BC #### [facility] [address] [place] [address] Dr. Jeronimo Melgar Eosinophils/100 WBC (Bld) 0.2 % Critically low 0.9-7.0 [facility] Comment on above: Performed By: #### C BC #### [facility] [address] [place] [address] Dr. Jeronimo Melgar Erythrocyte distribution width (RBC) [Ratio] 12.9 % Normal 11.0-15.0 [facility] Comment on above: Performed By: #### C BC #### [facility] [address] [place] [address] Dr. Jeronimo Melgar Hematocrit (Bld) [Volume fraction] 37.5 % Normal 36.0-48.0 [facility] Comment on above: Performed By: #### C BC #### [facility] [address] [address] [address] Jeronimo Melgar Hemoglobin (Bld) [Mass/Vol] 12.4 g/dL Normal 12.0-16.0 [facility] Comment on above: Performed By: #### C BC #### [facility] [address] [address] [address] Jeronimo Melgar IG # 0.05 10e3/ul Critically high 0.00-0.03 [facility] Comment on above: Performed By: #### C BC #### [facility] [address] [address] [address] Jeronimo Melgar IG % 0.3 % Normal 0.0-0.5 [facility] Comment on above: Performed By: #### C BC #### [facility] [address] [address] [address] Jeronimo Melgar LYMPH # 2.0 103/ul Normal 1.2-3.8 [facility] Comment on above: Performed By: #### C BC #### [facility] [address] [address] [address] Jeronimo Melgar Lymphocytes/100 WBC (Bld) 14.1 % Critically low 20.5-60.0 [facility] Comment on above: Performed By: #### C BC #### [facility] [address] [address] [address] Jeronimo Melgar MANUAL DIFF REQ NO Normal [facility] Comment on above: Performed By: #### C BC #### [facility] [address] [address] [address] Jeronimo Melgar MCH (RBC) [Entitic mass] 27.9 pg Normal 26.7-34.0 [facility] Comment on above: Performed By: #### C BC #### [facility] [address] [address] [address] Jeronimo Melgar MCHC (RBC) [Mass/Vol] 33.1 g/dL Normal 29.9-35.2 [facility] Comment on above: Performed By: #### C BC #### [facility] [address] [address] [address] Jeronimo Melgar MCV (RBC) [Entitic vol] 84.3 fL Normal 81.0-99.0 [facility] Comment on above: Performed By: #### C BC #### [facility] [address] [address] [address] Jeronimo Melgar MONO # 0.6 103/ul Normal 0.3-0.8 [facility] Comment on above: Performed By: #### C BC #### [facility] [address] [address] [address] Jeronimo Melgar Monocytes/100 WBC (Bld) 4.0 % Normal 1.7-12.0 [facility] Comment on above: Performed By: #### C BC #### [facility] [address] [place] [address] Dr. Jeronimo Melgar NEUT # 11.7 103/ul Critically high 1.4-6.5 [facility] Comment on above: Performed By: #### C BC #### [facility] [address] [place] [address] Dr. Jeronimo Melgar Neutrophils/100 WBC (Bld) 81.1 % Critically high 43.0-75.0 [facility] Comment on above: Performed By: #### C BC #### [facility] [address] [place] [address] Dr. Jeronimo Melgar Platelet mean volume (Bld) [Entitic vol] 10.2 fL Normal 9.5-13.5 [facility] Comment on above: Performed By: #### C BC #### [facility] [address] [place] [address] Dr. Jeronimo Melgar PLT 420 103/ul Normal 150-450 [facility] Comment on above: Performed By: #### C BC #### [facility] [address] [place] [address] Dr. Jeronimo Melgar RBC 4.45 106/ul Normal 4.20-5.40 [facility] Comment on above: Performed By: #### C BC #### [facility] [address] [place] [address] Dr. Jeronimo Melgar WBC 14.4 103/ul Critically high 4.0-11.0 [facility] Comment on above: Performed By: #### C BC #### [facility] [address] [place] [address] Dr. Jeronimo Melgar ER URINE PROFILEon 2 Bilirubin Ql (U) Negative Normal NEGATIVE [facility] Comment on above: Performed By: #### B OX #### [facility] [address] [place] [address] Dr. Jeronimo Melgar Clarity (U) CLEAR Normal CLEAR [facility] Comment on above: Performed By: #### B OX #### [facility] [address] [place] [address] Dr. Jeronimo Melgar Color (U) YELLOW Normal YELLOW [facility] Comment on above: Performed By: #### B OX #### [facility] [address] [place] [address] Dr. Jeronimo Melgar ERUMarko A micrscopic examination will be performed if indicated. Normal [facility] Comment on above: Performed By: #### B OX #### [facility] [address] [place] [address] Dr. Jeronimo Melgar Glucose Ql (U) Negative Normal NEGATIVE [facility] Comment on above: Performed By: #### B OX #### [facility] [address] [place] [address] Dr. Jeronimo Melgar Hemoglobin Ql (U) Negative Normal NEGATIVE [facility] Comment on above: Performed By: #### B OX #### [facility] [address] [place] [address] Dr. Jeronimo Melgar Ketones Ql (U) >=80 Abnormal NEGATIVE [facility] Comment on above: Performed By: #### B OX #### [facility] [address] [place] [address] Dr. Jeronimo Meglar LEUKOCYTES Negative Normal NEGATIVE [facility] Comment on above: Performed By: #### B OX #### [facility] [address] [place] [address] Dr. Jeronimo Melgar Nitrite Ql (U) Negative Normal NEGATIVE [facility] Comment on above: Performed By: #### B OX #### [facility] [address] [place] [address] Dr. Jeronimo Melgar pH (U) 7.0 [pH] Normal 5-9 [facility] Comment on above: Performed By: #### B OX #### [facility] [address] [place] [address] Dr. Jeronimo Melgar SPEC GRAVITY 1.020 Normal 1.005-<=1.025 [facility] Comment on above: Performed By: #### B OX #### [facility] [address] [place] [address] Dr. Jeronimo Melgar UA PROTEIN TRACE Normal NEGATIVE/ TRACE [facility] Comment on above: Performed By: #### B OX #### [facility] [address] [place] [address] Dr. Jeronimo Melgar UR MICRO IND NOT INDICATED Normal [facility] Comment on above: Performed By: #### B OX #### [facility] [address] [place] [address] Dr. Jeronimo Melgar Urobilinogen Qn (U) 1.0 {Pepito'U}/dL Normal 0.2 - 1. 0 [facility] Comment on above: Performed By: #### B OX #### [facility] [address] [place] [address] Dr. Jeronimo Melgar PROF CHEM 8 (BAS METB)on Anion gap [Moles/Vol] 12.7 mmol/L Normal [facility] Comment on above: Performed By: #### B MP #### [facility] [address] [place] [address] Dr. Jeronimo Melgar Calcium [Mass/Vol] 9.1 mg/dL Normal 8.5-10.1 [facility] Comment on above: Performed By: #### B MP #### [facility] [address] [place] [address] Dr. Jeronimo Melgar Chloride [Moles/Vol] 103 mmol/L Normal 98-107 [facility] Comment on above: Performed By: #### B MP #### [facility] [address] [address] [address] Jeronimo Melgar CO2 [Moles/Vol] 23.9 mmol/L Normal 21.0-32.0 [facility] Comment on above: Performed By: #### B MP #### [facility] [address] [address] [address] Jeronimo Melgar Creatinine [Mass/Vol] 0.78 mg/dL Normal 0.55-1.02 [facility] Comment on above: Performed By: #### B MP #### [facility] [address] [address] [address] Jeronimo Melgar EGFR-AF FILIPINO >60 Normal >=60 [facility] Comment on above: Performed By: #### B MP #### [facility] [address] [address] [address] Jeronimo Melgar EGFR-NON AF FILIPINO >60 Normal >=60 [facility] Comment on above: Performed By: #### B MP #### [facility] [address] [address] [address] Jeronimo Melgar Glucose [Mass/Vol] 155 mg/dL Critically high 74-106 [facility] Comment on above: Performed By: #### B MP #### [facility] [address] [address] [address] Jeronimo Melgar Potassium [Moles/Vol] 3.6 mmol/L Normal 3.5-5.1 [facility] Comment on above: Performed By: #### B MP #### [facility] [address] [address] [address] Jeronimo Melgar Sodium [Moles/Vol] 136 mmol/L Normal 136-145 [facility] Comment on above: Performed By: #### B MP #### [facility] [address] [address] [address] Jeronimo Melgar Urea nitrogen [Mass/Vol] 7.0 mg/dL Normal 7.0-18.0 [facility] Comment on above: Performed By: #### B MP #### [facility] [address] [place] [address] Dr. Jeronimo Melgar Urea nitrogen/Creatinine [Mass ratio] 9.0 mg/mg Normal [facility] Comment on above: Performed By: #### B MP #### [facility] [address] [place] [address] Dr. Jeronimo Melgar US PREG TVon 03-28-2022 [...] ANGELA SCOTT Date: 2022-03-28 16:32 Normal [facility] US PELVIS AND TRANSVAGon US [...] CHRISTIAN KATE Date: 2021-10-17 16:35 Normal [facility] CHLAMYDIA/GONOCOCCUS MILY (SW AB/URINE/PAPon 10-14-2021 Chlamydia trachomatis, MILY Positive Abnormal Negative [facility] Comment on above: Result Comment: . Performed By: #### C T/NGNA #### [facility] [address] [place] [address] Dr. Jeronimo Melgar Neisseria gonorrhoeae, MILY Negative Normal Negative [facility] Comment on above: Performed By: #### C T/NGNA #### [facility] [address] [address] [address] Jeronimo Melgar VAGINITIS/VAGINOSIS DNA PROB Obed 10-13-2021 Lesa species Negative Normal Negative The [place] Comment on above: Performed By: #### V AGINT #### [facility] [address] [address] [address] Jeronimo Melgar Gardnerella vaginalis Negative Normal Negative [facility] Comment on above: Performed By: #### V AGINT #### [facility] [address] [address] [address] Jeronimo Melgar Trichomonas vaginalis Negative Normal Negative [facility] Comment on above: Performed By: #### V AGINT #### [facility] [address] [place] [address] Dr. Jeronimo Melgar XR foot LT min 3V*on 022 XR foot LT min 3V* [facility] [place] [address] XRay Report Signed Patient: Lia Desai MR#: [id number] : 2000 Acct:[id number] Age/Sex: 20 / F ADM Date: 07/18/21 Loc: ER Room: Type: [facility] ER Attending Dr: Ordering Provider: Oneil Ricci APRN Date of Service: 07/18/21 XR/XR foot LT min 3V*: Extremity Injury, Lower ([id number]) XR/XR ankle LT min 3V*: Extremity Injury, [...] Brewer Jr., M.D.07/18/2021 6:15 PM Dictation Location: [place] [address] Transcribed By: [facility] 07/18/211814 Dictated By: Bijan Brewer Jr, MD 07/18/211812 Signed By: 07/18/211814 [facility] XR knee RT 4V*on 05-15-2021 XR knee RT 4V* [facility] Main [place] [address] [place] [address] XRay Report Signed Patient: Lia Deasi MR#: [id number] : 2000 Acct:[id number] Age/Sex: 20 / F ADM Date: 05/15/21 Loc: ER Room: Type: [facility] ER Attending Dr: Ordering Provider: Yovani [...] Ana Juan M.D.05/15/2021 8:11 PM Dictation Location: [place] [address] Transcribed By: CYNDEE 05/15/212010 Dictated By: Ana Juan II, MD 05/15/212008 Signed By: 05/15/212010 [facility] Vital Signs Date Time Vital Sign Value Performing Clinician Faci lity 07-18-2021 16:56-0400 Body height 167.[address] [facility] 07-18-2021 16:56-0400 Body mass index (BMI) [Percentile] Per age and sex 98.9 % [facility] 07-18-2021 16:56-0400 Body mass index (BMI) [Ratio] 44.3 kg/m2 [facility] 07-18-2021 16:56-0400 Body temperature 98.3 [degF] [facility] 07-18-2021 16:56-0400 Body weight 124.[address] [facility] 07-18-2021 16:56-0400 Diastolic blood pressure 108 mm[Hg] [facility] 07-18-2021 16:56-0400 Heart rate 80 /min [facility] 07-18-2021 16:56-0400 Respiratory rate 18 /min [facility] 07-18-2021 16:56-0400 Systolic blood pressure 162 mm[Hg] [facility] 05-15-2021 19:47-0500 Body height 167.[address] [facility] 05-15-2021 19:47-0500 Body mass index (BMI) [Percentile] Per age and sex 98.9 % [facility] 05-15-2021 19:47-0500 Body mass index (BMI) [Ratio] 43.7 kg/m2 [facility] 05-15-2021 19:47-0500 Body temperature 98.8 [degF] [facility] 05-15-2021 19:47-0500 Body weight 122.[address] [facility] 05-15-2021 19:47-0500 Diastolic blood pressure 65 mm[Hg] [facility] 05-15-2021 19:47-0500 Heart rate 75 /min [facility] 05-15-2021 19:47-0500 Respiratory rate 16 /min [facility] 05-15-2021 19:47-0500 SaO2% (BldA) [Mass fraction] 100 % [facility] 05-15-2021 19:47-0500 Systolic blood pressure 144 mm[Hg] [facility] Encounters Encounter Date Encounter Type Care Provider Facility Start: 11-28-2023 End: 11-28-2023 ambulatory ROBERT JANES Not Available Start: 11-21-2023 End: 11-21-2023 ambulatory ROBERT JANES Not Available Start: 11-13-2023 End: 11-13-2023 ambulatory ROBERT JANES Not Available Start: 10-28-2023 End: 10-28-2023 ambulatory DAPHNIE TAYO Not Available Start: 10-14-2023 End: 10-14-2023 ambulatory ROBERT JANES Not Available Start: 10-01-2023 End: 10-01-2023 ambulatory ROBERT JANES Not Available Start: 09-17-2023 End: 09-17-2023 ambulatory ROBERT JANES Not Available Start: 09-04-2023 End: 09-04-2023 ambulatory ZEKE Clemons [facility] Start: 09-04-2023 End: 09-04-2023 Emergency department patient visit [facility] Start: 08-26-2023 End: 08-26-2023 ambulatory ROBERT JANES Not Available Start: 07-30-2023 End: 07-30-2023 [facility] Start: 07-29-2023 End: 07-29-2023 ambulatory ROBERT JANES Not Available Start: 07-11-2023 End: 07-11-2023 Emergency department patient visit [facility] Start: 07-05-2023 End: 07-05-2023 Emergency department patient visit [facility] Start: 07-01-2023 End: 07-01-2023 ambulatory DAPHNIE TAYO Not Available Start: 06-18-2023 End: 06-18-2023 ambulatory ROBERT JANES Not Available Start: 06-03-2023 End: 06-03-2023 ambulatory ROBERT JANES Not Available Start: 05-26-2023 End: 05-26-2023 Emergency department patient visit Yassine Maldonado Facility:[facility] Start: 05-17-2023 Clinisync Result Encounter Robert Janes DO Work Phone: [facility] External Department Unsolicited Start: 05-17-2023 Clinisync Result Encounter Robert Janes DO Work Phone: [facility] External Department Unsolicited Start: 05-15-2023 End: 05-15-2023 Emergency department patient visit Mamie Moore Facility:[facility] Start: 05-14-2023 Chart abstracting Robert Marrero DO Work Phone: [facility] Start: 05-07-2023 Documentation procedure Leah Hernandez RN [facility] Certified Nurse [employer] [facility] [place] Start: 05-02-2023 End: 05-02-2023 ambulatory ROBERT MARRERO Not Available Start: 04-19-2023 Telephone encounter Leah Hernandez RN [facility] Certified Nurse [employer] [facility] [place] Start: 04-17-2023 Telephone encounter Leah Hernandez RN [facility] Certified Nurse [employer] [facility] [place] Start: 04-15-2023 End: 04-15-2023 Emergency department patient visit Yassine Maldonado Facility:[facility] Start: 04-12-2023 End: 04-12-2023 ambulatory Oneil MILLS Facility:[facility] Start: 04-05-2023 Orders Only Leah Hernandez RN [facility] Certified Nurse [employer] [place] Comment on above: Nausea and vomiting during (Primary Dx) Start: 03-01-2023 End: 03-01-2023 Emergency department patient visit Tom Kaci Sarah Facility:[facility] Start: 02-26-2023 End: 02-26-2023 ambulatory Errol Martin PAC Facility:[facility] Start: 02-14-2023 End: 02-14-2023 ambulatory DORA MILLS Facility:[facility] Start: 11-15-2022 End: 11-15-2022 Emergency department patient visit None Provider Facility:[facility] Start: 08-25-2022 End: 08-26-2022 ambulatory Alaina Matta CNM Facility:[facility] Start: 08-11-2022 End: 08-11-2022 Emergency department patient visit Adamaris Jaeger PA-C Facility:[facility] Start: 08-08-2022 End: 08-09-[address] BALDOMERO ELLER . Facility:[facility] Start: 06-12-2022 End: 06-12-2022 ambulatory None Provider Facility:[facility] Start: 06-02-2022 End: 06-03-[address] BALDOMERO ELLER . Facility:[facility] Start: 05-18-2022 Encounter for other preprocedural examination DR BALDOMERO ELLER . [facility] Start: 05-17-2022 End: 05-17-2022 ambulatory [...] DR ANA LEDESMA Facility:[facility] Start: 03-29-2022 ambulatory [facility] Facility:[facility] Start: 03-28-2022 End: 03-29-[address] BALDOMERO ELLER . Facility:[facility] Start: 10-17-2021 End: 10-18-[address] BALDOMERO ELLER . Facility:[facility] Start: 10-12-2021 End: 10-12-[address] BALDOMERO ELLER . Facility:[facility] Start: 07-18-2021 End: 07-18-2021 Emergency department patient visit [facility] Start: 05-15-2021 End: 05-15-2021 Emergency department patient visit [facility] Procedures Date Procedure Procedure Detail Performing Clinician Start: 05-17-2023 ALL CBC WITH AUTO DIFF Robert Marrero DO Work Phone: Start: 05-15-2021 X-ray of right knee Plan of Treatment Date Care Activity Detail Author Start: 05-15-2028 DTaP,Tdap and Td Vaccines (2 - Td or Tdap) DTaP,Tdap and Td Vaccines (2 - Td or Tdap) [facility] Start: 03-05-2024 Adult BMI Screening Adult BMI Screen ing [facility] Start: 03-05-2024 Tobacco Screening Tobacco Screening [facility] Start: 09-26-2023 Screening for Chlamy driss trachomatis Chlamydia Screening [facility] Start: 06-03-2023 End: 06-03-2023 Patient encounter procedure 06/03/2023 2:10 PM EST Routine [facility] [address] [address] Robert Marrero, DO [address] [place] [address] [facility] Start: 04-17-2023 End: 04-17-2023 ambulatory 04/17/2023 8:30 AM EST Initial [facility] Certified Nurse [employer] [place] [id number] [address] [phone] [facility] Certified Nurse [employer] [facility] [place] Start: 12-07-2022 Influenza vaccination Influenza Vacc ine [facility] Start: 2022 Screening for malign ant neoplasm of cervix Pap Smear [facility] Start: 07-18-2021 X-ray of left ankle XR ankle LT min 3V* [facility] Start: 07-18-2021 X-ray of left foot XR foot LT min 3V * [facility] Start: 10-08-2019 Adult BMI Follow Up Plan Adult BMI Follow Up Plan [facility] Start: 2013 [facility] Work Phone: Patient referral [facility] Work Phone: Payers Date Payer Category Payer Medicaid [id number] 2001 Unknown [id number] 2.16.84 0.1.394965.3.579.2.593 2001 Unknown [id number] 2.16.84 0.1.893113.3.579.2.593 2001 Unknown [id number] 2.16.84 0.1.328506.3.579.2.593 2001 Unknown [id number] 2.16.84 0.1.446305.3.579.2.593 2001 Unknown [id number] 2.16.84 0.1.214397.3.579.2.593 2001 Unknown [id number] 2.16.84 0.1.977122.3.579.2.593 2001 Unknown [id number] 2.16.84 0.1.031814.3.579.2.593 2001 Unknown [id number] 2.16.84 0.1.147974.3.579.2.593 2001 Unknown [id number] 2.16.84 0.1.691633.3.579.2.593 2001 Unknown [id number] 2.16.84 0.1.135176.3.579.2.593 2001 Unknown [id number] 2.16.84 0.1.969353.3.579.2.593 2001 Unknown [id number] 2.16.8 40.1.159464.3.579.2.718 2001 Unknown [id number] 2.16.8 40.1.388676.3.579.2.718 2001 Unknown [id number] 2.16.8 40.1.137607.3.579.2.718 2001 Unknown [id number] 2.16.8 40.1.614577.3.579.2.718 2001 Unknown [id number] 2.16.8 40.1.057576.3.579.2.718 2001 Unknown [id number] 2.16.8 40.1.500050.3.579.2.718 2001 Unknown [id number] 2.16.8 40.1.491509.3.579.2.718 2001 Unknown [id number] 2.16.8 40.1.017630.3.579.2.718 2001 Unknown [id number] 2.16.8 40.1.395022.3.579.2.718 2001 Unknown [id number] 2.16.8 40.1.722997.3.579.2.718 2001 Unknown [id number] 2.16.8 40.1.046668.3.579.2.8 2001 Unknown [id number] 2.16.8 40.1.328731.3.579.2.6 2001 Unknown [id number] 2.16.8 40.1.873692.3.579.2.6 2001 Unknown [id number] 2.16.8 40.1.845031.3.579.2.1286 2001 Unknown [id number] 2.16.8 40.1.542543.3.579.2.6 2001 Unknown [id number] 2.16.8 40.1.807672.3.579.2.6 2001 Unknown [id number] 2.16.84 0.1.916913.3.579.2.9 2001 Unknown [id number] 2.16.84 0.1.327649.3.579.2.9 2001 Unknown [id number] 2.16.84 0.1.523128.3.579.2.9 2001 Unknown [id number] 2.16.84 0.1.442817.3.579.2.9 2001 Unknown [id number] 2.16.84 0.1.648613.3.579.2.9 2001 Unknown [id number] 2.16.84 0.1.198768.3.579.2.1259 2001 Unknown [id number] 2.16.84 0.1.684465.3.579.2.1259 2001 Unknown [id number] 2.16.84 0.1.827607.3.579.2.1259 2001 Unknown [id number] 2.16.84 0.1.674204.3.579.2.9 2001 Unknown [id number] 2.16.84 0.1.739782.3.579.2.1259 2001 Unknown [id number] 2.16.84 0.1.620580.3.579.2.1259 2001 Unknown [id number] 2.16.84 0.1.909597.3.579.2.1259 2001 Unknown [id number] 2.16.84 0.1.065694.3.579.2.1259 1959 Unknown [id number] Self-pay Self Pay [id number] Social History Date Type Detail Facility Start: 07-18-2021 End: 05-14-2023 Tobacco smoking status NHIS Never smoked tobacco (finding) [facility] Start: 2000 Sex Assigned At Female [facility] History of tobacco use Passive smoker [facility] Start: 08-01-2022 Tobacco use and exposure Smokeless tobacco non-user [facility] Start: 03-05-2023 Alcohol intake Ex-drinker (finding) [facility] Start: 03-05-2023 End: 05-14-2023 History of Social function [facility] Start: 03-05-2023 End: 05-14-2023 Tobacco use panel [facility] Housing Instability Unknown [facility] Start: 08-14-2022 Alcohol Comment social [facility] Start: 2000 Sex Assigned At Not on file [facility] Start: 05-14-2023 Alcohol intake Lifetime non-drinker (finding) [facility] Start: 03-20-2023 [facility] Start: 05-01-2023 Gender identity Identifies as female gender (finding) [facility] Start: 05-01-2023 Sexual orientation Heterosexual (finding) [facility] Clinical Notes 06-12-2022 to [...] Keep all follow-up visits. Medicines ? Take uxhi-vqb-pqptrhk and prescription medicines only as told by [...] be an em (more content not included)... [facility] 05-15-2023 Note Education Materials Obstetrics and Gynecology [...] uri tea. ? Taking prescription medicine or moej-kum-sucozrl medicine as told by your health care [...] or sour. These include lemonade, uri prabhakar, lemon?[place] soda, ice water, and sparkling water. Things [...] food. The s (more content not included)... [facility] 05-07-2023 History of Presen t illness Narrative Letter sent to patient via [facility] and also to her My Chart regarding her missed OB intake appointment and also her MICHAEL for her Chlamydia. documented [facility] this [facility] 04-19-2023 Miscellaneous Notes Called patient to reschedule her IOB intake visit. No answer. Left message to call office to reschedule her appointment. documented in this encounter [facility] 04-19-2023 Telephone encounter Note Called patient to reschedule her IOB intake visit. No answer. Left message to call office to reschedule her appointment. [facility] 04-17-2023 Miscellaneous Notes Patient called for her OB intake per phone. No answer. Left message to call office. documented in this encounter [facility] 04-17-2023 Telephone encounter Note Patient called for her OB intake per phone. No answer. Left message to call office. [facility] 04-15-2023 Note Education Materials Gastroenterology Nausea and [...] ? Low-calorie sports drinks. ? Eat bland, vpzo-og-drohix foods in small amounts as you are able, such as: ? Bananas. ? Applesauce. ? Rice. ? Low-fat (lean) meats. ? Oldsmar. ? Crackers. ? Avoid drinking fluids that have a lot of sugar or caffeine in them. This includes energy drinks, sports drinks, and soda. ? Avoid alcohol. ? Avoid spicy or fatty foods. General instructions ? Take ftul-vbs-fmmfryq and prescription medicines only as told by your doctor. ? Drink enough fluid to keep your pee (urine) pale yellow. ? Wash your hands often with soap and water for at least 20 seconds. If you cannot use soap and water, use hand cork insulator. ? Make sure that everyone in your [...] doctor about eating and drinking. ? Take twrw-uqy-asaujxa and prescription medicines only as told by your doctor. ? Contact your doctor if your symptoms get worse or you have new symptoms. ? Keep all follow-up visits. This information is not intended to replace advice given to you by your health care provider. Make sure you discuss any questions you have with your health care provider. Document Revised: 09/29/2021 Document Reviewed: 09/29/2021 [employer] Patient Education ? [facility]12[facility] Note Patient Education Ma [...] these instructions at home: Medicines ? Take lvca-wdn-rjtjlrd and prescription medicines only as told by your health care provider. Do not use any prescription, fzkt-rgt-ngruiaz, or herbal medicines for morning sickness without [...] provider. Document Revised: 11/07/2020 Document Reviewed: 10/17/2020 [employer] Patient Education ? 2022 [employer]. [facility] 03-01-2023 Note Education Materials Pulmonary Medicine Acute [...] Follow these instructions at home: ? Take fvqd-zbg-kurxgac and prescription medicines only as told by [...] and water are not available, use hand cork insulator. ? Avoid contact with people who have [...] is easier to cough up. ? Take nett-ahc-blnooyi an (more content not included)... [facility] 02-26-2023 Note Patient Education Ma terials Follows:Disease [...] to help relieve symptoms, such as: ? Txvp-lnz-dwxhjaj cold medicines. ? Cough suppressants. Coughing is [...] other clear broths. General instructions ? Take ghaf-lgo-vmjfkir and prescription medicines only as told by [...] and water are not available, use hand cork insulator. ? Avoid touching your mouth, face, eyes, [...] These symptoms may (more content not included)... [facility] 02-14-2023 Note Patient Education Ma terials Follows: [...] elastic wrap to support your hand. ? Irtj-wxr-gwaxzka medicines to control pain. Follow these instructions [...] or lying down. General instructions ? Take iwfq-ndd-kpxcgvn and prescription medicines only as told by [...] provider. Document Revised: 07/13/2021 Document Reviewed: 07/13/2021 [employer] Patient Education ? 2022 [employer] How to Use Cold Therapy Cold [...] on your pr (more content not included)... [facility] 11-15-2022 Note Education Materials Orthopedics Sciatica Rehab [...] by your health care provider. Stretching and imuad-az-ghyrec exercises These exercises warm up your muscles [...] standing, keep y (more content not included)... [facility] 08-11-2022 Note Education Materials Obstetrics and Gynecology [...] these instructions at home: Medicines ? Take mjph-kap-[id number] and prescription medicines only as told by [...] Where to find more information ? [employer]: acog.org ? [place] Department of Health and Human Services Office of Women's Health: hrsa.gov/ubyjvx-gxccok-hnykfw Contact a doctor if: ? You have [...] ? Text the Crisis Text Line at 525097. Summary ? A miscarriage is the loss [...] provider. Document Revised: 09/23/2020 Document Reviewed: 09/23/2020 [employer] Patient Education ? [facility] Note Patient Education Ma [...] these instructions at home: Medicines ? Take utjs-aig-[id number] and prescription medicines only as told by [...] things can cause a cough. ? Take ixfu-acb-nuisgcm and prescription medicines only as told by [...] provider. Document Revised: 05/13/2020 Document Reviewed: 04/13/2019 [employer] Patient Education ? 2021 [employer] Infectious Disease Pharyngitis Pharyngitis is a [...] these instructions at home: Medicines ? Take ztve-hyy-rmvqwjg and prescription medicines only as told by your doctor. ? If you were prescribed an antibiotic medicine, take it as told by your doctor. Do not stop taking the antibiotic even if you start to feel better. ? Use throat loze (more content not included)... 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 Engineer Relationship Specialty Start Date End Date [facility] [address] [place] PCP - General Family Medicine 08/11/18 Highway Administrative Engineer Relationship Specialty Start Date End Date [facility] [address] [place], [place] PCP - General Family Medicine 08/11/18 Highway Administrative Engineer Relationship Specialty Start Date End Date [facility] [address] [place], [place] PCP - General Family Medicine 08/11/18 Goals (unrecognized section and content) Goals may be documented in a n alternate sectionNot on filedocumented as of this encounterNot on filedocumented as of this encounterNot on filedocumented as of this encounterNot on filedocumented as of this encounter INFORMATION SOURCE (unrecogn ized section and content) DATE CREATED AUTHOR 07/27/[address] [facility] DATE CREATED AUTHOR AUTHOR'S ORGANIZ ATION 08/16/2022 [facility] DATE CREATED AUTHOR AUTHOR'S ORGANIZ ATION 06/08/2023 [facility] DATE CREATED AUTHOR AUTHOR'S ORGANIZ ATION 09/05/2023 [facility] DATE CREATED AUTHOR AUTHOR'S ORGANIZ ATION 11/30/2023 [facility] EPIC FOR RECORDS PERTAINING TO PATIENTS [...] BE BASED ON THE PRIMARY CLINICAL RECORDS. [employer] provides no warranty or guarantee of the accuracy or completeness of information in this document.
[2023-12-04 05:44] LABS: Hematocrit 36.4 % (36.0-48.0); Hemoglobin 11.8 g/dL (12.0-16.0); Mean Corpuscular HGB Conc 32.4 g/dL (29.9-35.2); Mean Corpuscular Hemoglobin 26.9 pg (26.7-34.0); Mean Corpuscular Volume 82.9 fL (81.0-99.0); Mean Platelet Volume 10.1 fL (9.5-13.5); Platelet Count 423 10^3/uL (150-450); Red Blood Count 4.39 10^6/uL (4.20-5.40); Red Cell Distribution Width 12.9 % (11.0-15.0); White Blood Count 14.6 10^3/uL (4.0-11.0)
[2023-12-04 05:54] LABS: Amphetamine Screen Urine NEGATIVE (NEGATIVE); Cannabinoid Screen Urine NEGATIVE (NEGATIVE); Cocaine Screen Urine NEGATIVE (NEGATIVE); Methamphetamines Screen Urine NEGATIVE (NEGATIVE); Opiate Screen Urine NEGATIVE (NEGATIVE); Phencyclidine Screen Urine NEGATIVE (NEGATIVE)
[2023-12-04 05:55] LABS: Barbiturates Screen Urine NEGATIVE (NEGATIVE); Benzodiazepines Screen Urine NEGATIVE (NEGATIVE); Buprenorphine Screen Urine NEGATIVE (NEGATIVE); Methadone Screen Urine NEGATIVE (NEGATIVE); Oxycodone Screen Urine NEGATIVE (NEGATIVE); Tricyclic Antidepressant Urine NEGATIVE (NEGATIVE)
[2023-12-04] MEDS: 0.9 % SODIUM CHLORIDE 1,000 ML 125 ML IV ×3 (06:20→22:33)
[2023-12-04] MEDS: ONDANSETRON PF 4 MG/2 ML VIAL IV ×2 (06:20→17:42)
[2023-12-04] MEDS: OXYTOCIN/0.9 % SODIUM CHLORIDE 10 UNITS/500 ML PLAST..BAG 6 UNIT IV (06:30)
[2023-12-04] MEDS: 0.9 % SODIUM CHLORIDE 1,000 ML 1000 ML IV (12:20)
[2023-12-04] MEDS: NALBUPHINE HCL 10 MG/ML AMPULE IV (12:34)
[2023-12-04] MEDS: ROPIVACAINE HCL/PF 400 MG/200 ML PREMIX 6 MG EPIDURAL (13:28)
[2023-12-04] MEDS: EPHEDRINE SULFATE 50 MG/ML VIAL IV (13:41)
[2023-12-04] MEDS: OXYTOCIN/0.9 % SODIUM CHLORIDE 10 UNITS/500 ML PLAST..BAG 54 UNIT IV (19:24)
--- NOTE | 2023-12-04 19:26 | W.PC.ACHO ---
Registration Status: ADM IN Primary Language: Preferred Language: Maori Report given to Brea SANTOS. Care relinquished. Active Medications Generic Name Dose Route Start Last Admin Trade Name Toni PRN Reason Stop Dose Admin Carboprost Tromethamine 250 mcg 12/04/23 05:17 Carboprost Tromethamine 250 Mcg/Ml 1 Ml Vial IM 12/06/23 05:17 Q15M PRN Bleeding Diphenhydramine HCl 25 mg 12/04/23 07:42 Diphenhydramine Hcl 50 Mg/Ml Vial IV 12/05/23 07:42 Q6H PRN Itching Ephedrine Sulfate 5 mg 12/04/23 07:42 12/04/23 13:41 Ephedrine Sulfate 50 Mg/Ml Vial IV 12/05/23 07:42 5 mg Q5M PRN Administration Blood Pressure - Low Fentanyl Citrate 100 mcg 12/04/23 07:42 Fentanyl Citrate/Pf 100 Mcg/2 Ml Vial EPIDURAL ONCE PRN epidural Fentanyl Citrate 100 mcg 12/04/23 07:42 Fentanyl Citrate/Pf 100 Mcg/2 Ml Vial EPIDURAL ONCE PRN epidural Tranexamic Acid 1,000 mg/ 110 mls @ 440 mls/hr 12/04/23 05:17 Sodium Chloride IV 12/06/23 05:17 ONCE PRN Uterine Bleeding Sodium Chloride 1,000 mls @ 125 mls/hr 12/04/23 05:30 12/04/23 14:30 Sodium Chloride 0.9% 1,000 Ml IV 125 mls/hr .Q8H LEVI Administration Oxytocin/Sodium Chloride 10 units in 500 mls @ 6 mls/hr 12/04/23 05:30 12/04/23 19:24 Pitocin 10 Unit/500 Ml-Ns IV 18 milliunit/min TITR LEVI 54 mls/hr Administration Protocol 2 MILLIUNIT/MIN Oxytocin/Sodium Chloride 20 units in 1,000 mls @ 125 mls/hr 12/04/23 05:17 Pitocin 20 Unit/1,000 Ml-Ns IV Q8H PRN POST DELIVERY Ropivacaine/Sodium Chloride 400 mg in 200 mls @ 6 mls/hr 12/04/23 07:45 12/04/23 13:28 Naropin 0.2% 400 Mg/200 Ml Bag EPIDURAL 6 mls/hr Q24H LEVI Administration Lidocaine 5 ml 12/04/23 05:17 Lidocaine Viscous 2% 15 Ml Solution TOPICAL 12/06/23 05:19 ONCE PRN Pain Lidocaine 1 ml 12/04/23 05:17 Lidocaine Hcl 1% 200 Mg/20 Ml Mdv INJ 12/06/23 05:19 ONCE PRN Pain Lidocaine 5 ml 12/04/23 07:42 Lidocaine Hcl 2% Pf 100 Mg/5 Ml Vial INJ 12/05/23 07:42 Q1H PRN Pain Methylergonovine Maleate 0.2 mg 12/04/23 05:17 Methylergonovine Maleate 0.2 Mg/Ml Ampule IM 12/06/23 05:17 ONCE PRN Uterine Contractility/Contract Methylergonovine Maleate 0.2 mg 12/04/23 05:17 Methylergonovine Maleate 0.2 Mg Tablet PO 12/06/23 05:17 Q4H PRN Uterine Contractility/Contract Misoprostol 600 mcg 12/04/23 05:17 Misoprostol 100 Mcg Tablet PO 12/06/23 05:17 ONCE PRN Uterine Bleeding Misoprostol 800 mcg 12/04/23 05:17 Misoprostol 100 Mcg Tablet SL 12/06/23 05:17 ONCE PRN Uterine Bleeding Misoprostol 1,000 mcg 12/04/23 05:17 Misoprostol 100 Mcg Tablet [place] 12/06/23 05:17 ONCE PRN Uterine Bleeding Nalbuphine HCl 10 mg 12/04/23 05:17 12/04/23 12:34 Nalbuphine Hcl 10 Mg/Ml Ampule IV 10 mg Q3H PRN Administration Pain Naloxone HCl 0.4 mg 12/04/23 07:42 Naloxone Hcl 0.4 Mg/Ml Vial IV 12/05/23 07:42 ONCE PRN Respiratory Depression Ondansetron HCl 4 mg 12/04/23 05:17 12/04/23 17:42 Ondansetron Pf 4 Mg/2 Ml Vial IV 4 mg Q6H PRN Administration Nausea And Vomiting Ondansetron HCl 4 mg 12/04/23 05:17 Ondansetron 4 Mg Rapdis Tablet SL Q6H PRN Nausea And Vomiting Oxytocin 10 unit 12/04/23 05:17 Oxytocin 10 Unit/Ml Vial IM 12/06/23 05:17 ONCE PRN Bleeding Diet Category Date Time Status Regular Consistency Diet Diet 12/04/23 05:18 Active Consults Category Date Time Status Consult to Anesthesiology Routine Cons 12/04/23 Ordered Consult to Monomer Purification Operator Routine Cons 12/04/23 Ordered IV Insertion/Site Date of IV Line Insertion [ 12/04/23 Short PIV (<1.75 in) 22g left Wrist] IV Insertion Time [Short PIV ( 05:37 <1.75 in) 22g left Wrist] Neurology Patient orientation (short person,place,time,situation list) Respiratory Oxygen Delivery Method Room Air
[2023-12-05] VITALS (21 sets, daily range): BP systolic 109–151; BP diastolic 52–69; PULSE 75–114; TEMP 35.4–36.9
[2023-12-05] MEDS: OXYTOCIN/0.9 % SODIUM CHLORIDE 20 UNITS/1,000 ML PLAST..BAG 125 UNIT IV (01:53)
--- NOTE | 2023-12-05 02:05 | PM.OBPRCVD ---
Procedure Intrapartal events: None Induction method: per pitocin protocol Delivery augmentation: rupture of membranes and pitocin Delivery monitor: external FHT and external uterine Route of delivery: L&D Laceration Description: perineal - 1st degree Delivery repair: Vicryl Anesthesia type: Epidural Infant Delivery date: 12/05/23 Gender: female presentation: vertex Placental delivery description: Spontaneous cord description: 3 Vessels
[2023-12-05] MEDS: BENZOCAINE/MENTHOL 85 GRAM SPRAY BOTTLE 1 APPLIC TOPICAL (03:51)
[2023-12-05] MEDS: GLYCERIN/WITCH HAZEL PADS 1 PAD TOPICAL (03:52)
[2023-12-05] MEDS: ACETAMINOPHEN 325 MG TABLET 650 MG PO (04:42)
[2023-12-05] MEDS: IBUPROFEN 600 MG TABLET PO ×2 (10:01→17:14)
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
[2023-12-06] MEDS: IBUPROFEN 600 MG TABLET PO ×2 (03:11→10:30)
[2023-12-06 06:05] LABS: Basophils Absolute Auto 0.1 10^3/uL (0.0-0.1); Basophils Percent Auto 0.5 % (0.2-2.0); Eosinophils Absolute Auto 0.1 10^3/uL (0.0-0.7); Eosinophils Percent Auto 0.8 % (0.9-7.0); Hematocrit 31.5 % (36.0-48.0); Immature Granulocytes Abs Auto 0.19 10^3/uL (0.00-0.03); Immature Granulocytes Pct Auto 1.3 % (0.0-0.5); Lymphocytes Percent Auto 27.7 % (20.5-60.0); Mean Corpuscular HGB Conc 31.7 g/dL (29.9-35.2); Mean Corpuscular Hemoglobin 26.5 pg (26.7-34.0); Mean Corpuscular Volume 83.6 fL (81.0-99.0); Mean Platelet Volume 10.2 fL (9.5-13.5); Monocytes Absolute Auto 1.4 10^3/uL (0.3-0.8); Monocytes Percent Auto 9.6 % (1.7-12.0); Neutrophils Absolute Auto 8.6 10^3/uL (1.4-6.5); Neutrophils Percent Auto 60.1 % (43.0-75.0); Platelet Count 323 10^3/uL (150-450); Red Blood Count 3.77 10^6/uL (4.20-5.40); Red Cell Distribution Width 13.3 % (11.0-15.0); White Blood Count 14.3 10^3/uL (4.0-11.0)
[2023-12-06] MEDS: ACETAMINOPHEN 325 MG TABLET 650 MG PO (06:25)
--- NOTE | 2023-12-06 07:18 | W.PC.ACHO ---
Registration Status: ADM IN Primary Language: Preferred Language: Hungarian report given to maciej artur at 0710 Active Medications Generic Name Dose Route Start Last Admin Trade Name Julianq PRN Reason Stop Dose Admin Acetaminophen 650 mg 12/05/23 02:08 12/06/23 06:25 Acetaminophen 325 Mg Tablet PO 650 mg Q6H PRN Administration Mild Pain Al Hydroxide/Mg Hydroxide 2,400 mg 12/05/23 02:08 Magnesium Hydroxide 2,400 Mg/10 Ml Oral.Susp PO Q6H PRN Dyspepsia Benzocaine/Menthol 1 applic 12/05/23 02:08 12/05/23 03:51 Benzocaine/Menthol 85 Gram [place] Bottle TOPICAL 1 applic Q2H PRN Administration Pain Diphtheria/Pertussis/Tetanus Vacc 0.5 ml 12/07/23 09:00 Adacel Diph,Pertuss(Acell),Tet Vac/Pf 0.5 Ml Adult Syringe IM 12/07/23 09:01 .ONCE ONE Docusate Sodium 100 mg 12/06/23 09:00 Docusate Sodium 100 Mg Capsule PO BID LEVI Fentanyl Citrate 100 mcg 12/04/23 07:42 Fentanyl Citrate/Pf 100 Mcg/2 Ml Vial EPIDURAL ONCE PRN epidural Fentanyl Citrate 100 mcg 12/04/23 07:42 Fentanyl Citrate/Pf 100 Mcg/2 Ml Vial EPIDURAL ONCE PRN epidural Sodium Chloride 1,000 mls @ 125 mls/hr 12/04/23 05:30 12/05/23 11:33 Sodium Chloride 0.9% 1,000 Ml IV Infused .Q8H LEVI Infusion Oxytocin/Sodium Chloride 10 units in 500 mls @ 6 mls/hr 12/04/23 05:30 12/05/23 01:53 Pitocin 10 Unit/500 Ml-Ns IV 0 milliunit/min TITR LEVI 0 mls/hr Infusion Protocol 2 MILLIUNIT/MIN Ropivacaine/Sodium Chloride 400 mg in 200 mls @ 6 mls/hr 12/04/23 07:45 12/04/23 13:28 Naropin 0.2% 400 Mg/200 Ml Bag EPIDURAL 6 mls/hr Q24H LEVI Administration Ibuprofen 600 mg 12/05/23 02:08 12/06/23 03:11 Ibuprofen 600 Mg Tablet PO 600 mg Q6H PRN Administration Moderate Pain Measles/Mumps/Rubella Vaccine Live 0.5 ml 12/07/23 09:00 Measles,Mumps,Rubella Vacc/Pf 0.5 Ml Vial SQ 12/07/23 09:01 .ONCE ONE Nalbuphine HCl 10 mg 12/04/23 05:17 12/04/23 12:34 Nalbuphine Hcl 10 Mg/Ml Ampule IV 10 mg Q3H PRN Administration Pain Ondansetron HCl 4 mg 12/04/23 05:17 12/04/23 17:42 Ondansetron Pf 4 Mg/2 Ml Vial IV 4 mg Q6H PRN Administration Nausea And Vomiting Ondansetron HCl 4 mg 12/04/23 05:17 Ondansetron 4 Mg Rapdis Tablet SL Q6H PRN Nausea And Vomiting Senna 17.2 mg 12/05/23 20:00 Sennosides 8.6 Mg Tablet PO QHS PRN Constipation Simethicone 80 mg 12/05/23 02:08 Simethicone 80 Mg Tab.Chew PO QID PRN Abdominal Distention Temazepam 15 mg 12/05/23 02:08 Temazepam 15 Mg Capsule PO QHS PRN Sleep Witch Ara/Glycerin 1 pad 12/05/23 02:08 12/05/23 03:52 Glycerin/Witch Ara Pads TOPICAL 1 pad Q2H PRN Administration Pain Respiratory Oxygen Delivery Method Room Air Oxygen Delivery Method Room Air Oxygen Delivery Method Room Air Oxygen Delivery Method Room Air Bowels Bowel Pattern No Bowel Movement Bowel Pattern No Bowel Movement Renal Bladder Pattern Continent Bladder Pattern Continent Bladder Pattern Continent Bladder Pattern Continent
[2023-12-06 07:35] VITALS: BP 119/67; PULSE 76
[2023-12-06 07:45] VITALS: TEMP 36.9
--- NOTE | 2023-12-06 07:56 | PM.OBPN ---
OB - PN: Subj Subjective Patient comments: no complaints and pain well controlled [place] status: doing well Exam Constitutional Vital Signs, click to edit/add: Last Vital Signs Temp 97.7 F 12/05/23 23:50 Pulse 76 12/06/23 07:35 Resp 18 12/05/23 23:50 BP 119/67 12/06/23 07:35 O2 Del Method Room Air 12/05/23 23:50 Documenting provider has reviewed patient's vital signs: yes Common normals: no apparent distress Respiratory Common normals: normal respiratory effort and clear to auscultation bilaterally Cardio Common normals: regular rate and regular rhythm GI Common normals: Normal to inspection, nondistended, normoactive bowel sounds present Extremity Common normals: no calf tenderness Results Labs Labs: Short CBC 12/06/23 Range/Units 05:55 WBC 14.3 H (4.0-11.0) 10^3/uL Hgb 10.0 L (12.0-16.0) g/dL Hct 31.5 L (36.0-48.0) % Plt Count 323 (150-450) 10^3/uL OB - PN: A/P Plan - Vaginal Delivery day: 1 Plan: routine care, discharge home and follow up 6 weeks Time Spent with Patient Time: Total time spent is greater than 50% in coordination of care (as documented) at patient's floor/unit and/or counseling patient: Total time spent with greater than 50% in coordination of care (as documented) at patient's floor/unit and/or counseling patient: less than 15 minutes
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
[2023-12-06] MEDS: DOCUSATE SODIUM 100 MG CAPSULE PO (10:30)
== END 2023-12-06 12:40 | disposition home or self-care (01) | DRG 560 ==
PROVIDERS: Admitting Provider Obstetrics & Gynecology; Visit Provider Obstetrics & Gynecology
DX: O70.0 First degree perineal laceration during delivery (principal); Z3A.39 39 weeks gestation of pregnancy; Z37.0 Single live birth
CPT/HCPCS: 36415; 59050; 59410; 80307; 85025; 85027; 86850; 86900; 86901; 96365; 96366; 96375; 96376; J2300; J2405; J2795

== ENCOUNTER 2023-12-10 08:53 | Outpatient (OUT) | payer OTHER, SELFPAY ==
--- OUTSIDE RECORDS SUMMARY | 2023-12-10 09:14 | XMS_ITS | CCD ---
Author Organization [facility] Care Team Providers Care Area Counselor Name Role Phone NON STAFF Primary Care Provider LAURA Kraft Emergency Provider NICOLE Ricci Emergency Provider [phone] DAPHNIE ., DR ALEXANDRE Attending Unavailabl e KARASIK ., DR ALEXANDRE Admitting Unavailabl [facility] Unava ilable KARASIK ., DR ALEXANDRE Consulting Unavailabl e LAVINIA, DR CHRISTIAN Doyle Consulting Unavailable KARASIK ., DR ALEXANDRE Consulting Unavailabl e KARASIK ., DR ALEXANDRE Attending Unavailabl e [facility] Unava ilable KARASIK ., DR ALEXANDRE Admitting Unavailabl e ANGELA SCOTT Consulting Unavailable DINA, DR ANA Dennis Attending Unavailable DINA, DR ANA Dennis Admitting [facility] Unava ilable DINA, DR ANA Dennis Consulting [...] DR ALEXANDRE Attending Unavailabl e [facility] Primary Care Unava ilable KARASIK ., DR ALEXANDRE Admitting Unavailabl e KARASIK ., DR ALEXANDRE Consulting Unavailabl e ZIEBER, ANGELA Dennis Consulting Unavailable KARASIK ., DR ALEXANDRE Attending Unavailabl e KARASIK ., DR ALEXANDRE Admitting Unavailabl e [facility] Primary Care Unava ilable KARASIK ., DR ALEXANDRE Consulting Unavailabl e KARASIK ., DR ALEXANDRE Consulting Unavailabl e KARASIK ., DR ALEXANDRE Attending Unavailabl e [facility] Primary [facility] Unava ilable KARASIK ., DR ALEXANDRE Admitting Unavailabl e WEST, DR CHRISTIAN Doyle Consulting Unavailable REQUEST, DR AMBER LISTED Consulting [employer] [facility] Primary Care Provider Unavailable Primary Care Provider [...] Admitting Unavailable SharmaNelson platt Attending Unavailable SERVICES, [facility] Unava ilable KENDRA EDWARDS Attending Unavailable SERVICES, [facility] Unava ilable DARELL SYMONE L Attending Unavailable RAUL HAMMOND Admitting Unavailable RAUL HAMMOND Attending Unavailable SERVICES, [facility] Unava ilable SERVICES, [facility] Unava ilable FRIES, ZEKE S Admitting Unavailable FRIES, ZEKE S Attending Unavailable SERVICES, [facility] Unava ilable JANES, ROBERT Attending Unavailable [...] Date of Onset Reaction(s) Facility (1 source) [facility] Drug Allergy [facility] Repository (2 sources) Azithromycin; Translations: [AZITHROMYCIN] Drug Allergy 2 [facility] Repository (5 sources) Adhesive agent; Translations: [ADHESIVE] Propensity to adverse reactions to drug 3 [facility] (6 sources) Azithromycin Drug Allergy 2 [facility] (2 sources) Macrolides And Ketolides Drug Allergy 4 Unknown [facility] (2 sources) Wound Dressing Adhesive Drug Allergy 4 [facility] (1 source) Adhesive bandage; Translations: [Adhesive Bandage] Propensity to adverse reactions (disorder) [facility] Repository (1 source) Azithromycin; Translations: [Zithromax] Drug Allergy [facility] Repository (1 source) metroNIDAZOLE; Translations: [METRONIDAZOLE] Drug Allergy 4 [facility] Repository Medications Current Medications Medication Drug Class(es) Dates Sig (Normalized) Sig (Original) [id number] 200 actuat albuterol 0.09 mg/actuat metered dose [...] 09-04-2023 Bilirubin Ql (U) Negative Normal NEG [facility] Comment on above: Performed By: #### C HILLARY CANCINO, 3040-3 #### [facility] ([id number]) [address] [place] [address] 71660 BLOOD/HGB Negative Normal NEG [facility] Comment on above: Performed By: #### C HILLARY CANCINO, 3040-3 #### [facility] ([id number]) [address] [place] [address] 32223 Color (U) YELLOW Normal YELLOW [facility] Comment on above: Performed By: #### C HILLARY CANCINO, 3040-3 #### [facility] ([id number]) [address] [place] [address] 51994 Glucose Ql (U) Negative Normal NEG [facility] Comment on above: Performed By: #### C BARAK, CMP, 0-3 #### [facility] ([id number]) [address] [place] [address] 39917 Ketones Ql (U) Negative Normal NEG [facility] Comment on above: Performed By: #### Shakeel CANCINO, CMP, 0-3 #### [facility] ([id number]) [address] [place] [address] 51504 Leukocyte esterase Test strip Ql (U) Trace Abnormal NEG [facility] Comment on above: Performed By: #### Shakeel CANCINO, CMP, 3039-3 #### [facility] ([id number]) [address] [place] [address] 34787 Nitrite Ql (U) Negative Normal NEG [facility] Comment on above: Performed By: #### Shakeel CANCINO, CMP, 3039-3 #### [facility] ([id number]) [address] [place] [address] 01383 pH (U) 6.5 [pH] Normal 5.0-8.5 [facility] Comment on above: Performed By: #### Shakeel CANCINO, CMP, 0-3 #### [facility] ([id number]) [address] [place] [address] 70737 Protein Ql (U) Negative Normal NEG [facility] Comment on above: Performed By: #### Shakeel CANCINO, CMP, 0-3 #### [facility] ([id number]) [address] [place] [address] 76616 R.B.CELLS 0 /hpf Normal 0-5 [facility] Comment on above: Performed By: #### Shakeel BCA, CMP, 0-3 #### [facility] ([id number]) [address] [place] [address], [place] [address] Specific gravity (U) [Rel density] 1.020 Normal 1.003-1.035 [facility] Comment on above: Performed By: #### Shakeel CANCINO [facility], 3040-3 #### [facility] ([id number]) [address] [place] [address] 38270 SQUAMOUS EPITHELIUM 5 /hpf Normal 0-5 [facility] Comment on above: Performed By: #### Shakeel CANCINO [facility], 3039-3 #### [facility] ([id number]) [address] [place] [address] 89904 TURBIDITY HAZY Abnormal CLEAR [facility] Comment on above: Performed By: #### Shakeel CANCINO [facility], 3039-3 #### [facility] ([id number]) [address] [place] [address] 52643 Urobilinogen Qn (U) 1.0 {Pepito'U}/dL Normal <1.1 [facility] Comment on above: Performed By: #### Shakeel CANCINO [facility], 3039-3 #### [facility] ([id number]) [address] [place] [address] 22781 W.B.CELLS 2 /hpf Normal 0-5 [facility] Comment on above: Performed By: #### Shakeel CANCINO [facility], 0-3 #### [facility] ([id number]) [address] [place] [address] 69518 COMPLETE BLOOD COUNTon 07-29 Erythrocyte distribution width (RBC) [Ratio] 13.5 % Normal 11.5-15.0 [facility] Comment on above: Performed By: #### Shakeel CASTELLANOS CMP #### [facility] ([id number]) [address] [place] [address] 93527 Hematocrit (Bld) [Volume fraction] 32.1 % Low 35-47 [facility] Comment on above: Performed By: #### C JASMIN, CMP #### [facility] ([id number]) [address] [place] [address] 51499 Hemoglobin (Bld) [Mass/Vol] 11.0 g/dL Low 11.7-15.5 [facility] Comment on above: Performed By: #### C BC, CMP #### [facility] ([id number]) [address] [place] [address] 13940 MCH (RBC) [Entitic mass] 28.8 pg Normal 27-34 [facility] Comment on above: Performed By: #### C BC, CMP #### [facility] ([id number]) [address] [place] [address] 56577 MCHC (RBC) [Mass/Vol] 34.3 g/dL Normal 32-36 [facility] Comment on above: Performed By: #### C BC, CMP #### [facility] ([id number]) [address] [place] [address] 77372 MCV (RBC) [Entitic vol] 84 fL Normal 80-100 [facility] Comment on above: Performed By: #### C BC, CMP #### [facility] ([id number]) [address] [place] [address] 34273 Platelet mean volume (Bld) [Entitic vol] 8.9 fL Normal 7-12 [facility] Comment on above: Performed By: #### C BC, CMP #### [facility] ([id number]) [address] [place] [address] 48392 Platelets (Bld) [#/Vol] 354 10*3/uL Normal 150-450 [facility] Comment on above: Performed By: #### C BC, CMP #### [facility] ([id number]) [address] [place] [address] 98383 RBC COUNT 3.82 X10E12/L Normal 3.80-5.20 [facility] Comment on above: Performed By: #### C BC, CMP #### [facility] ([id number]) [address] [place] [address] 04836 WBC (Bld) [#/Vol] 12.0 10*3/uL High 4.0-11.0 [facility] Comment on above: Performed By: #### C BC, CMP #### [facility] ([id number]) [address] [place] [address] 33358 COMPREHENSIVE METABOLIC PANE Alex 07-30-2023 Albumin [Mass/Vol] 3.0 g/dL Low 3.2-5.3 [facility] Comment on above: Performed By: #### C BC, CMP #### [facility] ([id number]) [address] [place] [address] 02901 ALP [Catalytic activity/Vol] 67 U/L Normal 39-130 [facility] Comment on above: Performed By: #### C BC, CMP #### [facility] ([id number]) [address] [place] [address] 42523 ALT [Catalytic activity/Vol] 10 U/L Normal 0-31 [facility] Comment on above: Performed By: #### C BC, CMP #### [facility] ([id number]) [address] [place] [address] 63552 Anion gap [Moles/Vol] 7 mmol/L Normal 5-15 [facility] Comment on above: Performed By: #### C BC, CMP #### [facility] ([id number]) [address] [place] [address] 09196 AST [Catalytic activity/Vol] 12 U/L Normal 0-41 [facility] Comment on above: Performed By: #### C BC, CMP #### [facility] ([id number]) [address] [place] [address] [place] [address] Bilirubin [Mass/Vol] 0.5 mg/dL Normal 0.3-1.2 [facility] Comment on above: Performed By: #### C BC, CMP #### [facility] ([id number]) [address] [place] [address] 31546 Calcium [Mass/Vol] 8.1 mg/dL Low 8.5-10.5 [facility] Comment on above: Performed By: #### C BC, CMP #### [facility] ([id number]) [address] [place] [address] 20827 Chloride [Moles/Vol] 108 mmol/L Normal 98-109 [facility] Comment on above: Performed By: #### C BC, CMP #### [facility] ([id number]) [address] [place] [address] 37433 CO2 [Moles/Vol] 19 mmol/L Low 22-32 [facility] Comment on above: Performed By: #### C BC, CMP #### [facility] ([id number]) [address] [place] [address] 66883 Creatinine [Mass/Vol] 0.52 mg/dL Normal 0.40-1.00 [facility] Comment on above: Result Comment: METH OD TRACEABLE TO IDMS STANDARD Performed By: #### C BC, CMP #### [facility] ([id number]) [address] [place] [address] 01837 eGFR (CKD-EPI) NON-RACE DEPENDENT >90 Normal >59 [facility] Comment on above: Result Comment: Reported eGFR is based on the CKD-EPI 2020 equation that does not use a race coefficient. Performed By: #### C BC, CMP #### [facility] ([id number]) [address] [place] [address] 40830 Glucose [Mass/Vol] 79 mg/dL Normal 65-99 [facility] Comment on above: Performed By: #### C BC, CMP #### [facility] ([id number]) [address] [place] [address] 23486 Potassium [Moles/Vol] 3.9 mmol/L Normal 3.5-5.0 [facility] Comment on above: Performed By: #### C BC, CMP #### [facility] ([id number]) [address] [place] [address] 59234 Protein [Mass/Vol] 6.1 g/dL Normal 6.0-8.0 [facility] Comment on above: Performed By: #### C BC, CMP #### [facility] ([id number]) [address] [place] [address] 37510 Sodium [Moles/Vol] 134 mmol/L Normal 134-146 [facility] Comment on above: Performed By: #### C BC, CMP #### [facility] ([id number]) [address] [place] [address] 81137 Urea nitrogen [Mass/Vol] 6 mg/dL Normal 5-23 [facility] Comment on above: Performed By: #### C BC, CMP #### [facility] ([id number]) [address] [place] [address] 90831 DRUG SCREEN, URINEon 024 AMPHETAMINE/METHAMP Negative Normal NEG [facility] Comment on above: Result Comment: AMPH /METH screening cut off = 1000 ng/mL Performed By: #### D FLOWER #### [facility] ([id number]) [address] [place] [address] 12323 BARBITURATES Negative Normal NEG [facility] Comment on above: Result Comment: Deirdre iturates screening cut off value = 200 ng/mL Performed By: #### D FLOWER #### [facility] ([id number]) [address] [place] [address] 63728 BENZODIAZEPINES Negative Normal NEG [facility] Comment on above: Result Comment: Vinny odiazepines screening cut off value = 200 ng/mL Performed By: #### D FLOWER #### [facility] ([id number]) [address] [place] [address] 67752 CANNABINOIDS Negative Normal NEG [facility] Comment on above: Result Comment: Lavern abinoids/THC screening cut off value = 50 ng/mL Performed By: #### D FLOWER #### [facility] ([id number]) [address] [place] [address] 85499 COCAINE METABOLITE Negative Normal NEG [facility] Comment on above: Result Comment: Coca ine screening cut off value = 300 ng/mL Performed By: #### D FLOWER #### [facility] ([id number]) [address] [place] [address] 19801 ECSTASY Negative Normal [facility] Comment on above: Result Comment: Ecst asy screening cut off value = 500 ng/mL This report is intended for use in clinical monitoring or management of patients. Performed By: #### D FLOWER #### [facility] ([id number]) [address] [place] [address] 58408 METHADONE Negative Normal [facility] Comment on above: Result Comment: Meth adone screening cut off value = 300 ng/mL. Performed By: #### D FLOWER #### [facility] ([id number]) [address] [place] [address] [place] [address] OPIATES Negative Normal NEG [facility] Comment on above: Result Comment: Opia bernadette screening cut off value = 300 ng/mL NOTE: This test is used for the detection of codeine, hydrocodone (>1000 ng/mL), morphine and hydromorphone (>900 ng/mL) in urine. Performed By: #### D FLOWER #### [facility] ([id number]) [address] [place] [address] 96075 OXYCODONE Negative Normal NEG [facility] Comment on above: Result Comment: Oxyc odone screening cut off value = 300 ng/mL NOTE: This test is used for the detection of oxycodone and oxymorphone in urine. Performed By: #### D FLOWER #### [facility] ([id number]) [address] [place] [address] 59825 PHENCYCLIDINE Negative Normal NEG [facility] Comment on above: Result Comment: Phen cyclidine screening cut off value = 25 ng/mL Performed By: #### D FLOWER #### [facility] ([id number]) [address] [place] [address] 94112 URINALYSISon 07-30-2023 Bilirubin Ql (U) Negative Normal NEG [facility] Comment on above: Performed By: #### C BCA, CMP, 3040-3 #### [facility] ([id number]) [address] [place] [address] [place] [address] BLOOD/HGB Negative Normal NEG [facility] Comment on above: Performed By: #### C BCA, CMP, 3040-3 #### [facility] ([id number]) [address] [place] [address] 39409 Color (U) YELLOW Normal YELLOW [facility] Comment on above: Performed By: #### C BCA, CMP, 3040-3 #### [facility] ([id number]) [address] [place] [address] [place] [address] Glucose Ql (U) Negative Normal NEG [facility] Comment on above: Performed By: #### C BCA, CMP, 3040-3 #### [facility] ([id number]) [address] [place] [address] 79135 Ketones Ql (U) Negative Normal NEG [facility] Comment on above: Performed By: #### C BCA, CMP, 3040-3 #### [facility] ([id number]) [address] [place] [address] 22704 Leukocyte esterase Test strip Ql (U) Negative Normal NEG [facility] Comment on above: Performed By: #### Shakeel CANCINO CMP, 3039-3 #### [facility] ([id number]) [address] [place] [address] 69701 Nitrite Ql (U) Negative Normal NEG [facility] Comment on above: Performed By: #### Shakeel CANCINO CMP, 3039-3 #### [facility] ([id number]) [address] [place] [address] 21365 pH (U) 7.0 [pH] Normal 5.0-8.5 [facility] Comment on above: Performed By: #### Shakeel CANCINO CMP, 3039-3 #### [facility] ([id number]) [address] [place] [address] 52837 Protein Ql (U) Negative Normal NEG [facility] Comment on above: Performed By: #### Shakeel CANCINO CMP, 3 #### [facility] ([id number]) [address] [place] [address] 46513 R.B.CELLS 0 to 1 Normal 0-5 [facility] Comment on above: Performed By: #### Shakeel CANCINO CMP, 3039-3 #### [facility] ([id number]) [address] [place] [address] 13505 Specific gravity (U) [Rel density] 1.020 Normal 1.003-1.035 [facility] Comment on above: Performed By: #### Shakeel CANCINO CMP, 3039-3 #### [facility] ([id number]) [address] [place] [address] 55891 SQUAMOUS EPITHELIUM 2 /hpf Normal 0-5 [facility] Comment on above: Performed By: #### Shakeel CANCINO CMP, 3039-3 #### [facility] ([id number]) [address] [place] [address] 84332 TURBIDITY CLOUDY Abnormal CLEAR [facility] Comment on above: Performed By: #### Shakeel CANCINO CMP, 3039-3 #### [facility] ([id number]) [address] [place] [address] 84645 Urobilinogen Qn (U) 0.2 {Pepito'U}/dL Normal <1.1 [facility] Comment on above: Performed By: #### Shakeel CANCINO CMP, 3039-3 #### [facility] ([id number]) [address] [place] [address] 66892 W.B.CELLS 1 /hpf Normal 0-5 [facility] Comment on above: Performed By: #### Shakeel CANCINO CMP, 3039-3 #### [facility] ([id number]) [address] [place] [address] 37318 CBC AND AUTO DIFFon 07-11-19 24 ABSOLUTE BASOPHIL 0.0 X10E9/L Normal 0.0-0.2 [facility] Comment on above: Performed By: #### Shakeel CANCINO CMP, 3 #### [facility] ([id number]) [address] [place] [address] 13526 ABSOLUTE NEUTROPHIL 9.7 X10E9/L High 1.5-6.6 [facility] Comment on above: Performed By: #### Shakeel CANCINO, CMP, 3039-3 #### [facility] ([id number]) [address] [place] [address] 91314 Basophils/100 WBC (Bld) 0.2 % Normal [facility] Comment on above: Performed By: #### Shakeel CANCINO, CMP, 3039-3 #### [facility] ([id number]) [address] [place] [address] 43970 Eosinophils (Bld) [#/Vol] 0.1 10*3/uL Normal 0.0-0.4 [facility] Comment on above: Performed By: #### Shakeel CANCINO CMP, 3 #### [facility] ([id number]) [address] [place] [address] 90698 Eosinophils/100 WBC (Bld) 0.5 % Normal [facility] Comment on above: Performed By: #### Shakeel CANCINO CMP, 3039-06 #### [facility] ([id number]) [address] [place] [address] 38466 Erythrocyte distribution width (RBC) [Ratio] 13.4 % Normal 11.5-15.0 [facility] Comment on above: Performed By: #### Shakeel CANCINO CMP, 3039-06 #### [facility] ([id number]) [address] [place] [address] 49377 Hematocrit (Bld) [Volume fraction] 37.1 % Normal 35-47 [facility] Comment on above: Performed By: #### Shakeel CANCINO CMP, 3039-06 #### [facility] ([id number]) [address] [place] [address] 55013 Hemoglobin (Bld) [Mass/Vol] 12.6 g/dL Normal 11.7-15.5 [facility] Comment on above: Performed By: #### Shakeel CANCINO CMP, 3039-06 #### [facility] ([id number]) [address] [place] [address] 86898 Lymphocytes (Bld) [#/Vol] 3.1 10*3/uL Normal 1.0-3.5 [facility] Comment on above: Performed By: #### Shakeel CANCINO CMP, 3 #### [facility] ([id number]) [address] [place] [address] 54262 Lymphocytes/100 WBC (Bld) 22.3 % Normal [facility] Comment on above: Performed By: #### C BARAK CMP, 3039- #### [facility] ([id number]) [address] [place] [address] 34867 MCH (RBC) [Entitic mass] 28.3 pg Normal 27-34 [facility] Comment on above: Performed By: #### Shakeel CANCINO, CMP, 3039-3 #### [facility] ([id number]) [address] [place] [address] 44755 MCHC (RBC) [Mass/Vol] 33.9 g/dL Normal 32-36 [facility] Comment on above: Performed By: #### Shakeel CANCINO, CMP, 3 #### [facility] ([id number]) [address] [place] [address] 89924 MCV (RBC) [Entitic vol] 84 fL Normal 80-100 [facility] Comment on above: Performed By: #### Shakeel CANCINO, CMP, 3039-06 #### [facility] ([id number]) [address] [place] [address] 28821 Monocytes (Bld) [#/Vol] 1.1 10*3/uL High 0-0.9 [facility] Comment on above: Performed By: #### Shakeel CANCINO, CMP, 3039-06 #### [facility] ([id number]) [address] [place] [address] 98920 Monocytes/100 WBC (Bld) 8.0 % Normal [facility] Comment on above: Performed By: #### Shakeel BCA, CMP, 3039-06 #### [facility] ([id number]) [address] [place] [address] 17248 Neutrophils/100 WBC (Bld) 69.0 % Normal [facility] Comment on above: Performed By: #### Shakeel BCA, CMP, 3039-3 #### [facility] ([id number]) [address] [place] [address] 28976 Platelet mean volume (Bld) [Entitic vol] 8.3 fL Normal 7-12 [facility] Comment on above: Performed By: #### Shakeel CANCINO CMP, 3039-3 #### [facility] ([id number]) [address] [place] [address] 90367 Platelets (Bld) [#/Vol] 380 10*3/uL Normal 150-450 [facility] Comment on above: Performed By: #### C BARAK, CMP, 3039-3 #### [facility] ([id number]) [address] [place] [address] 45324 RBC COUNT 4.43 X10E12/L Normal 3.80-5.20 [facility] Comment on above: Performed By: #### Shakeel CANCINO CMP, 3039-3 #### [facility] ([id number]) [address] [place] [address] 21861 WBC (Bld) [#/Vol] 14.0 10*3/uL High 4.0-11.0 [facility] Comment on above: Performed By: #### Shakeel CANCINO, CMP, 3 #### [facility] ([id number]) [address] [place] [address] 30021 COMPREHENSIVE METABOLIC PANE Alex 07-11-2023 Albumin [Mass/Vol] 3.4 g/dL Normal 3.2-5.3 [facility] Comment on above: Performed By: #### Shakeel CANCINO, CMP, 3039-3 #### [facility] ([id number]) [address] [place] [address] 23961 ALP [Catalytic activity/Vol] 65 U/L Normal 39-130 [facility] Comment on above: Performed By: #### Shakeel CANCINO, CMP, 3039-3 #### [facility] ([id number]) [address] [place] [address] ALT [Catalytic activity/Vol] 13 U/L Normal 0-31 [facility] Comment on above: Performed By: #### C HILLARY CANCINO, 3039-3 #### [facility] ([id number]) [address] [place] [address]60 Anion gap [Moles/Vol] 4 mmol/L Low 5-15 [facility] Comment on above: Performed By: #### C HILLARY CANCINO, 3039-06 #### [facility] ([id number]) [address] [place] [address] 09563 AST [Catalytic activity/Vol] 14 U/L Normal 0-41 [facility] Comment on above: Performed By: #### C HILLARY CANCINO, 3 #### [facility] ([id number]) [address] [place] [address] 88208 Bilirubin [Mass/Vol] 0.5 mg/dL Normal 0.3-1.2 [facility] Comment on above: Performed By: #### Shakeel CANCINO CMP, 3 #### [facility] ([id number]) [address] [place] [address] 68950 Calcium [Mass/Vol] 8.2 mg/dL Low 8.5-10.5 [facility] Comment on above: Performed By: #### C HILLARY CANCINO, 3039-06 #### [facility] ([id number]) [address] [place] [address] 55326 Chloride [Moles/Vol] 107 mmol/L Normal 98-109 [facility] Comment on above: Performed By: #### Shakeel CANCINO CMP, 3 #### [facility] ([id number]) [address] [place] [address] 86708 CO2 [Moles/Vol] 20 mmol/L Low 22-32 [facility] Comment on above: Performed By: #### C HILLARY CANCINO, 3 #### [facility] ([id number]) [address] [place] [address] 77740 Creatinine [Mass/Vol] 0.59 mg/dL Normal 0.40-1.00 [facility] Comment on above: Result Comment: METH OD TRACEABLE TO IDMS STANDARD Performed By: #### C HILLARY CANCINO, 3 #### [facility] ([id number]) [address] [place] [address] 09361 eGFR (CKD-EPI) NON-RACE DEPENDENT >90 Normal >59 [facility] Comment on above: Result Comment: Reported eGFR is based on the CKD-EPI 2020 equation that does not use a race coefficient. Performed By: #### C HILLRAY CANCINO, 3039-06 #### [facility] ([id number]) [address] [place] [address] 69081 Glucose [Mass/Vol] 91 mg/dL Normal 65-99 [facility] Comment on above: Performed By: #### C [facility], 3039-06 #### [facility] ([id number]) [address] [place] [address] 41792 Potassium [Moles/Vol] 3.9 mmol/L Normal 3.5-5.0 [facility] Comment on above: Performed By: #### C HILLARY CANCINO, 3039-06 #### [facility] ([id number]) [address] [place] [address] 48643 Protein [Mass/Vol] 7.1 g/dL Normal 6.0-8.0 [facility] Comment on above: Performed By: #### C HILLARY CANCINO, 3039-06 #### [facility] ([id number]) [address] [place] [address] 48123 Sodium [Moles/Vol] 131 mmol/L Low 134-146 [facility] Comment on above: Performed By: #### C HILLARY CANCINO, 3040-3 #### [facility] ([id number]) [address] [place] [address] Urea nitrogen [Mass/Vol] 5 mg/dL Normal 5-23 [facility] Comment on above: Performed By: #### C BARAK, [facility], 3040-3 #### [facility] ([id number]) [address] [place] [address] LIPASEon 07-11-2023 Lipase [Catalytic activity/Vol] 28 U/L Normal 17-40 [facility] Comment on above: Performed By: #### C BARAK, [facility], 3040-3 #### [facility] ([id number]) [address] [place] [address] SARS/FLU A+B/RSV by NAAT/Mol ecularon 07-11-2023 SARS/FLU [...] operators who are performing tests using either GeneH2HCare DX or GeneVOYAA systems and is limited to laboratories that [...] repeat. Fact Sheet for Healthcare Providers: https://www.fda.gov/ media/596380/downloa d Fact Sheet for Patients: https://www.fda.gov/ media/158127/downloa d Normal [facility] Comment on above: Performed By: #### C OVFLR #### [facility] ([id number]) [address] [place] [address] 29665 URINE CULTUREon 07-11-2023 Bacteria identified Cx Nom (U) CULTURE RESULTS 10-50,000 ORGANISMS/mL NORMAL UROGENITAL JONNY Normal [facility] Comment on above: Performed By: #### 6 30-4 #### [facility] ([id number]) [address] [place] [address], [address] [place] [address] URN MACROSCOPIC NURon 2023 BILIRUBIN NEHA Negative Normal NEG [facility] Comment on above: Performed By: #### N UM #### [facility] ([id number]) [address] [place] [address] 54702 BLOOD/HGB NEHA Negative Normal NEG [facility] Comment on above: Performed By: #### N UM #### [facility] ([id number]) [address] [place] [address] 94617 GLUCOSE NEHA Negative Normal NEG [facility] Comment on above: Performed By: #### N UM #### [facility] ([id number]) [address] [place] [address] 41722 KETONES NEHA 40 mg/dL Abnormal NEG [facility] Comment on above: Performed By: #### N UM #### [facility] ([id number]) [address] [place] [address] 40972 LEUKOCYTE ESTERASE NEHA Negative Normal NEG [facility] Comment on above: Performed By: #### N UM #### [facility] ([id number]) [address] [place] [address] 57340 NITRITE NEHA Negative Normal NEG [facility] Comment on above: Performed By: #### N UM #### [facility] ([id number]) [address] [place] [address] 95183 PH NEHA 8.0 Normal 5.0-8.5 [facility] Comment on above: Performed By: #### N UM #### [facility] ([id number]) [address] [place] [address] 45295 PROTEIN NEHA Trace Abnormal NEG [facility] Comment on above: Performed By: #### N UM #### [facility] ([id number]) [address] [place] [address] 93805 SPECIFIC GRAVITY NEHA 1.020 Normal 1.003-1.035 [facility] Comment on above: Performed By: #### N UM #### [facility] ([id number]) [address] [place] [address] 46831 UROBILINOGEN NEHA 1.0 eu/dL Normal <1.1 [facility] Comment on above: Performed By: #### N UM #### [facility] ([id number]) [address] [place] [address] 70766 URN MACROSCOPIC NURon 2023 BILIRUBIN NEHA Negative Normal NEG [facility] Comment on above: Performed By: #### N UM #### [facility] ([id number]) [address] [place] [address] [place] [address] BLOOD/HGB NEHA Negative Normal NEG [facility] Comment on above: Performed By: #### N UM #### [facility] ([id number]) [address] [place] [address] [place] [address] GLUCOSE NEHA Negative Normal NEG [facility] Comment on above: Performed By: #### N UM #### [facility] ([id number]) [address] [place] [address] [place] [address] KETONES NEHA Negative Normal NEG [facility] Comment on above: Performed By: #### N UM #### [facility] ([id number]) [address] [place] [address] [place] [address] LEUKOCYTE ESTERASE NEHA Trace Abnormal NEG [facility] Comment on above: Performed By: #### N UM #### [facility] ([id number]) [address] [place] [address] [place] [address] NITRITE NEHA Negative Normal NEG [facility] Comment on above: Performed By: #### N UM #### [facility] ([id number]) [address] [place] [address] [place] [address] PH NEHA 7.5 Normal 5.0-8.5 [facility] Comment on above: Performed By: #### N UM #### [facility] ([id number]) [address] [place] [address] [place] [address] PROTEIN NEHA Negative Normal NEG [facility] Comment on above: Performed By: #### N UM #### [facility] ([id number]) [address] [place] [address] [place] [address] SPECIFIC GRAVITY NEHA 1.025 Normal 1.003-1.035 [facility] Comment on above: Performed By: #### N UM #### [facility] ([id number]) [address] [place] [address] [place] [address] UROBILINOGEN NEHA 0.2 eu/dL Normal <1.1 [facility] Comment on above: Performed By: #### N UM #### [facility] ([id number]) [address] [facility], [place] [address] Coding Summaryon 05-31-2023 Coding Summary HTMLBase 64 GpoxprueKVn6uWe+PGhl YWQ+OF5YDEBpJ73gmZNc fY5xF3KKCItBErmzWUYA IOdOMoQfllVdIX4ohMKz ZXJu IC8+ZJ3yEVBkXtxfyJSd j1V9uIZ1M73ytm1gRVae yXK3TFFcIrQempxlh5rp vQw8UEyfJxivElGh TXXvtU37CHX5mR73Vi01 oRGifEHzz3oxgHi7AhNf FBBcOEN3cTmwHMqqz4Kl SYMrH23emXPjx0R5 IGNvbGxhcHNlOyBlbXB0 jC0aOMdxnvatc2bkgehr Eaj4tu91uWFbj8J5vYO3 H5SicmC2VOLpeGOz RptmgJJZgH7bwcnyp2ks fqbnSvQiIGQbBGc9RDb0 VKMyiMhnMiTdPL90GBP2 ZAVoymOqT2KoANFw yLrdAhP5m5E6Rb7IC8JB VyhiY5QCSFUAHQoddVR+ MH63so89U4KwQtoyGpw3 KXTmNIG8fPP9vY6k LPTlJKnrv5F9fDC0H0Qb zxVodq9mp2cvSMVkVBje Y02xvYOob2Y2AXJjmEQ6 PVLqbGiqDvEzdA14 Oyc+EVHttVkiy0JuBtxq w6gze9iqwXd3PozbUNZb cjIorFnaMAK6f4YuGc8w QWZhzSE0xGS3dI3f PtAvKeA5PCueL204SmSw yQXiPzriC56sJ8SmxBR+ TXAnQam7QLMpaZinYR6f F8FsVWWskbdqyVJo vQbmBJ9sYMMtuqgnIXGy zW0wVOCtJ4b4MtPuQjN3 DRtkM1JcMGXstrnrSc48 jE2qHcBrCjC8EWox I3JjxmA9KKZfpHOlHYkp CLB8N06mt9B0HSIfUCYk SHG2wKB4qI4xdWowyasb bGVmdDsgdmVydGlj QBddFJziO857NQRhnDpx PkNvZGluZyBEYXRlOiAg MDIvMjMvMjAyNDwvdGQ+ ODFwJPA0aHzuSLFx oTLeCPnqEi1wyJzniKhh XO0pMFYtxhmfFOJcfV8w AFAhcGKgaZuhBN6xLKCn tnssl782DbAkFNW5 YROynKFeX5NlpU9bBpNh RVZqEJDxQ7IetQKjXZil D632AIpfPaW6GBPairVk B0TsJSHzaDbpUxY0 x7L5Jj0Sb6UiwplvC7Yf aKYiAeFgNchuJEe0D3Sm PjwvdHI+BQ45NNJvCK26 XIl4DGW1eRvmTZpm NLYcQ6QbmO7xWsYnZLBi ZGRkOyc+PHRhYmxlIHdp ZHRoPScxMDAlJyBzdHls CU4mHh6hVIFlHDMg hMcioKTtDwKjk0chWFRx IDqhVX3ksIxpX9IqrPJ3 UEMeg4b4Ji76J82oY0Qv dXA+WHLeqSJ3wVH0 aP0vGgKuTeA3AQkjO175 BkIgwBHgDbkyj5sul7lr eEx7FmA2MCYyvwWvkQol BKR9l4ZzWa82N77o IHdpZHRoPSIxNSUiIHZh jHjsqo7tsR8nWl0+PGNv nZF8qQS4xP9fJaVwSlZ9 BUvsO638QgMsqASh Yxsni2mbk4dcdSs1SnSi YNFckeLsqZdyVEE1f6At Rg80R0GjhTthd6DgEgr9 qj46gXYpk6M5wFV4 Y6XiGDAwlcsrhBJhcPcp EB7oHPRzanlaGZCsoS6y MPWhL7s5UxHiShX9AQxb D3GmsqK4TRWhcKHp WNLtaXTCpW3vqhfpq4tc lyyyXrFlQYZcGQt8KIg4 TNCnjHhcZjGgQSJ1KkS2 EUQ7dRDppD3vbTfs qhotuX5fNtk+CBL6xDDu wGZKKU3eIlrqcGZ+PHRk DZW4zNweKNauXIApwX1e OUNmJ0m2SqOnIeX8 VXuxA1UuxiB1EEQfpTRu SEIcqTCPdG5wujqxw4aa esfbYdQdVEBvWWg6YVp0 LWFsaWduOiBsZWZ0 KuL3BOL9hEVxlX5qkShw sixoyR2jQsc+QmlydGgg WTO5VZi1E5CbKnm8ZWVx eJoiUO8zxTOhLDme Fi0jkWuniAsdLV1kKFHp gktsz698EyQkh3isPZKs uJCoNVkkHCM6I93qv0Q6 AGQcXUItHKR0mJK7 kE1nwOyfsqezcVOipTdp svQzyLolWUieOWbhL647 ZTAivCayPlPmCQc6P7Sd Mak3PGWhjQpaTP0s iYZpSLaiRd4hwXgbhHty OI0aUXSrtlbtj154MxBw p3zwRFMzzCWsPNmdWAM6 I18af4U6IPIdUQUq VMP3eMB6iX7nyEfvttzf bGVmdDsgdmVydGljYWwt EHfjW886MLModAnsAlIq eSg6W0WeAef4NZNq rQzeKU8kpLCzVWsxFb8e dMqopYodMA4oTSCqejfx d351XzNkc6djZISylPEp NGvuEVP6T53il6Q3 RDSlXWKzAEN3fTP3gP3k bGlnbjogbGVmdDsgdmVy aYqqPOlnNVotQ112MTLn cDsnPlBhdGllbnQg KIheTOo1F6UsHqnimKY+ QR72LTGoOX76eDMbxFNc k6gpkEs7QqTpTPReQTP8 nLhcKSzna8XiUBBe B79hyOCng6J3ZHWdiZja xKOqWfOzxGI6eB5cBWis znlql3elpxkvAjuyo8sc mx89uN88T05yHWlj ZHRoPSIzMCUiIHZhbGln dg7tnA4qRx9+PGNvbCB3 rCF9xW9xRICoKqT6TEfi B552XzCvtKTzYxsh r5xze0tbxYx9OqJ9OJEc zlKkxLatSGC2x3VsYd08 I50gGUckWQDxCLRkOAUw SXZysEiwzs2dpQ1c Ii8+EVKoaFG8zUP1mE2u LtViYoA9UMcaV785MvGn sONeAqfoC19lX6KshGD+ TVXnMkj9ECYtpSle KG7gxGHgVRuqGh0qWTL1 KaZzSxQcUCrnH2DaBHHx hhxhtybnfJV1LZQnMNWa yB61Id3xoGjjXEHc eWDMsG5ftfvdc5ozhtgu TcAfVOLgSOp8DVm3LMZs mMztPuDdHMR6LyF4MTH7 yJVyrE6xkWmafteo lS5lH8DnDWXzzvrvGi61 nR2eEsSkRxT9VPtkOfi+ N9tJYmQESEgsH2tCFNXF QCnZQV5GLBlzrTX+ PJCzDMP7vUkuLGpzHRBc uN5pYRSjX3e0RlFcXqX7 YEvbJ7DeJIZncxskBv53 zU4gOgVgXrG2GJfg L7NgsoZ2THYjbQHnVEkt EFE7E22au1V3LPPiZYZj AZK1mBF1mM8miJuicqqh bGVmdDsgdmVydGlj OBmrXSmgF441JIIzzBoa RwS2HnPgTfRyGSB3G2Jf Vvo8BGSfoKzpQL1loEZx SLfgAd4ofCkidSfm HY6nFLTfrnjtTGUrxU7z FMOveNAxkYhzTK1cKVOu vfpqn381BdFyMCX3GQAi uBOeQ3CfkB6tTuXx XOFrYGGwO7YrbRUxYMol F775CXlqWiW4FUHtyvGm G5YySZDxeQilFeO9p7F4 Re7xUAGSHGVstwzv dGQ+CZUaHUT0sZwsFNpn FSJakV0rLDIvN7a5KrIi IwP6ZMywZ9NpWVPsvvhk Fe41yH3eUnKfKmZ9 ABcdJ7RzkrE1PTFzkTMe GDjcHJI1Z63yw2H4YRDk AWPpYRC7wNT5dJ0dpYkx bjogbGVmdDsgdmVy cTqePBbuPVrdF373IHFf cDsnPkZFTUFMRTwvdGQ+ MVMyQXB4dHjpDSxcNELq rZ7dDCPvI4z6VhCm WzF2NFxqR0EjYYFrfusc De90tO3wAzJhIfF2PVbe O9JrptA6YQWwyIIwSZci HWU1A07hj4N8ZVDw OASpJSU4mXO6eZ1ujUzx bjogbGVmdDsgdmVydGlj AFmpWUxnC789YFZeaAyh JjEuRDUxGM7baLmv dGQ+ES64xo90J6KsAspi Mmz4YBPpMOI4yYU6pC9o MOPvKUkpy8L0zMP1A2Sp rbCkxp8ts1xfZRDw IZnlY09aaJBbl1N2PCRr jUM5ISCysRmjUrIaqT74 Oyc+NRQziFhpj1IqNfqc d3jle6uufTb9ScOd WQGostUpwSuyTWE2y3Qk Vj04Q12aHAbnKROfNFAv SALnVLZbpRyxkh2rqK8k Ii8+JEHvjDF8aJI9 gN4nRqGoHkK3RWnhY503 DwDqtJYwDmwfg4wkt6gi oBz7EvGkXQUfjeEtfAxf OWF4y5EaEc86W5Mq oDgcz7JtQrk5ec95yBQb w5N9zRE4O7RgIAIeffpv yAHkpBxaTX9zVKRemavs HRKlvU4rWZCwP3z6 UjElNrT2PBvhT5SafnK5 KMRpnZLtKINvpVFOyW0d mvtng9xhvqkfTlMtUBPc EWv8IOr2PRTheIjf JgBqEVC3ZcQ8IRE4tRQt nA5xzUupyjsecA9wObg+ QIl1c3wiqUWvWR2gkHN4 NQ81PP50rIGtk4S7 nTN2E2NdOYTibbriysga eLG0LBVcLGVubP52Hs6d vUklNz2jPWQkHPW8YCVn iJYoE3NfkM6uQkQi YSIpNSIdO9WqzDTfUVuk T993FTknDlP2CWAgtpZw I0LgMJWhdRzbMkR6y9V6 Xt7NXB67OU88CV96 xWBpd9D8nWW8J4ZoBVZt srofcldzpXF2SLRiRRGu kW96Vb9cxAkaJs7aXHTn DZP6PQIljMRwN9Df rL6vZgBtDAAaYUWwA4Ij rKAnPUgaQ094QCukVrX3 MOQkeiRgU1UwGWBvcDdf FuP0h8J1Mp8YUa08 ND55XT98vMPbd1G8xSG1 Y0JsVDRifqkyyambhVQ1 RXDtAHMfiK47Zs3wrJnx Mu8kOGPyXFA5IYCc jAMgR1UwiE4sKyPxHAUv HQDnR8CvuJJoPFdwE040 CKxqKbS4TSLqgiWmL0Ai JVLpjEdsUpQ5l8Y9 Uh6RYGzqclj9U7BbYcwa dHI+SU64TLCyFR34cBEq zSHpg3jynXc4FxBpPKSu UJY2hNycVDnhb9Kp ZXI (more content not included)... Normal [facility] C Throaton 05-28-2023 C Throat Ordered by Radha. Normal throat jonny isolated No pathogens isolated [facility] Comment on above: Performed By: #### 1 [id number], [id number], [id number], [id number] #### [facility] (DEFAULT) [address] [place] [address] .QC SARS-CoV-2 (COVID-19)/Fl u/RSV (GeneXpert)on 05-26-2023 Internal Control Pass Normal [facility] Comment on above: Order Comment: Order ed by Radha.[[email or web address]] Performed By: #### 1 [id number], [id number], [id number] #### [facility] (DEFAULT) [address] [place] [address] COVID/Flu/RSV (GeneXpert)on 05-26-2023 Flu A (GXpert COVFLURSV) Negative Normal Negative [facility] Comment on above: Performed By: #### 1 [id number], [id number], [id number], [id number] #### [facility] (DEFAULT) [address] [place] [address] Flu B (GXpert COVFLURSV) Negative Normal Negative [facility] Comment on above: Performed By: #### 1 [id number], [id number], [id number], [id number] #### [facility] (DEFAULT) [address] [place] [address] 58[address] RSV (GXpert COVFLURSV) Negative Normal Negative [facility] Comment on above: Performed By: #### 1 [id number], [id number], [id number], [id number] #### [facility] (DEFAULT) [address] [place] [address] 87061 SARS-CoV-2 (COVID-19) RNA MILY+probe Ql (Unsp spec) Negative Normal Negative [facility] Comment on above: Result Comment: Perf ormed by PCR methodology. Performed By: #### 1 [id number], [id number], [id number], [id number] #### [facility] (DEFAULT) [address] [place] [address] ED Clinical Summaryon 2023 ED Clinical Summary [facility] - Emergency Department [address] [place] [address] ED Clinical Summary PERSON INFORMATION Name: LIA DESAI Age: 22 Years Sex: FEMALE : 2000 MRN: Acct#: Visit Reason: Diarrhea; Fever; Headache; Throat pain - Adult; Body aches; HEADACHE, FEVER, BODY ACHES Arrival: 05/26/2023 17:02:55 Discharge: 05/26/2023 18:57:00 LOS: 000 01:55 Check In: 05/26/2023 17:02:55 Checkout:05/26/2023 18:57:00 Address: [address] [place] [address] PCP: ROBERT MARRERO PROVIDER INFORMATION Provider Role Assigned Unassigned Yassine Maldonado MD ED Provider 05/26/2023 17:04:17 [place] TANK WASHER Nurse 05/26/2023 17:19:42 VITALS INFORMATION Vital Sign Triage Latest Temperature Tympanic Temperature Temporal Artery Pulse Rate O2 Sat 97 % 97 % Respiratory Rate 16 br/min 16 br/min Blood Pressure /71 mmHg /71 mmHg MEDICAL INFORMATION Medications Given: Allergy Information: Adhesive Bandage; Zithromax PHYSICIAN DOCUMENTATION DISCHARGE INFORMATION: Discharge Disposition: Home Discharge Location: Home PATIENT EDUCATION INFORMATION Instructions: Hypertension, Adult, Vxkf-wl-Ordh; Nausea and Vomiting, Adult, Evsa-ex-Mptb Follow-Up: With: Address: When: ROBERT MARRERO [address] [place] [address] Within 3 to 5 days DIAGNOSIS: 1:Nausea vomiting and diarrhea; 2:Elevated blood pressure reading; Diarrhea, unspecified Patient Understands: Yes - Patient/family/careg iver verbalizes understanding of instructions given Comment: Normal [facility] ED Patient Summaryon 024 ED Patient Summary [facility] - Emergency Department [address] [place] [address] PATIENT DISCHARGE INSTRUCTIONS Patient Information Name: LIA DESAI Age: 22 Years Date of : 2000 Reason For Visit: Diarrhea; Fever; Headache; Throat pain - Adult; Body aches; HEADACHE, FEVER, BODY ACHES Arrival Time: 05/26/2023 17:02:55 Primary Care Physician: ROBERT MARRERO Attending Physician: Yassine Maldonado MD Comment: Visit Diagnosis: Diagnoses This Visit Body aches ([id number]) Diarrhea ([id number]) Diarrhea, unspecified (R19.7) Elevated blood pressure reading (R03.0) Fever ([id number]) Headache ([id number]) Nausea vomiting and diarrhea (R11.2) Throat pain - Adult ([id number]) The Pharmacy at [facility] is open Saturday through Saturday from [...] alcohol and/or drug addiction problems; contact the [facility] 29/10 Crisis Hotline -Text 4HNKY iw 434908. If you received any narcotics, sedation, or [...] legal documents With: Address: When: JANESROBERT SALDIVAR [address] [place], [place] [id number] Within 3 to 5 days Medication Information: The exam and treatment you received today in the [facility] Emergency Department were for an urgent problem and are not intended as complete care. It is important for you to follow up with a doctor, nurse practitioner, or physician?s child development assistant for ongoing care. If your symptoms [...] so we can reach you if necessary. [facility] Emergency Department has provided you with a complete list of medications post discharge. Please inform your cotton ball machine tender/provider of your visit and for further instruction [...] pressure an (more content not included)... Normal [facility] Strep Aon 05-26-2023 Strep procedure control Pass Normal [facility] Comment on above: Performed By: #### 1 [id number] #### [facility] (DEFAULT) [address] [place] [address] Streptococcus A Negative Normal Negative [facility] Comment on above: Performed By: #### 1 [id number] #### [facility] (DEFAULT) [address] [place] [address] Coding Summaryon 05-20-2023 Coding Summary HTMLBase 64 BhensikiWWd0qTj+PGhl YWQ+CP8GRPIoH17fhMYo bT3jX5MXYFsIRttgAZHP DIgWOxOfmuVuFI1ckIYf ZXJu IC8+EG0mGNNkFuuewCGi v4F9xVV3V42ynh5dJWty pVK8TNFuTwZqffezl2bl nQc3YSshYbxbOgAz OYXquF02AOZ9tD48Zb17 tFAroXGsd2atxTg7HiRx OGXvDMN5lOarXByqw3Gs DDQqU44wyXJxh2F8 IGNvbGxhcHNlOyBlbXB0 aW0uPNiygkdjy1llryge Hnk9mv17yCSqi1P0kWW4 O9RrbfN8ZAOuhIDx YstaiHAEdX0tlqqjp6jq fkgpRuWzXYJzNLd6YFz8 DCNveWcwLiBnKH78UBS9 GUNvxoYbU7TfHJGi pWbfJwX1l7A1Lb7HV9KT EofjY1AYGRCZPIhqjUF+ CI25rv80G7AxRahbOof6 DTArOQS1vDL7tZ9s FWEgSHhle4N0vWO5C8Me hzMbic2tg1cnJMFyVIag Y91wxWBzd7B4BTUobVJ8 FMEkxYclAbLkhL24 Oyc+IVIjnFksz1DmIfut d8npw1cltDq9JakuAYSh lzRswGyyTID5z5DkQb6u GGEtrJD3nUB9zD3i ZeLyQvG0JYogB770NfJa zULaFnwcM98jI7RskUP+ DDLrVbz1PWSfyObxOH2v X6HjHEEyesfjhOIh lQlpQA4eUJDswhvaGQSr wS1eCYYbP1a8RdVdLqM4 GItvX6YeKXOruvoyRo86 gS2eLmWtOoK3NIuv H2HlbbB4KTDouRXtHTpw OAC1R98me8X4RYAlPFYv LIG5sYM0wX2zqCmxiahj bGVmdDsgdmVydGlj UXskXAvxO067YJGyxHwn PkNvZGluZyBEYXRlOiAg MDIvMTIvMjAyNDwvdGQ+ CFGnKJZ9xLxzALDi sNBoOQhfXe3alNogtGcp UL5lFAFowcixBSWodL0p OXAjsJNhzSqiMJ7gIQUh cuauu672GdDwXCX8 JBFtrQKpZ4HigH0gSqUy SZLuOXGnH3PcyFSeGQzm F411SAjaSwI9UDUyokMu T2DlROZhjLtrDxI2 u4X1Zi7Lw8RzmltrP1Kv zLSkGeHaVcupSZh9Z0Bx PjwvdHI+QZ07IUDfRL51 LMf7ZBF0vCtgPUaj RSUjP1ZffL0hNmXjTFYt ZGRkOyc+PHRhYmxlIHdp ZHRoPScxMDAlJyBzdHls EM3tNr7aJJKxHNLr gSnfjSAwDzEfd3wcWSAj NBrgMV5fcRbuP5QknJD3 EEEvq1x7Cy42K53oX3Ce dXA+UAWdtBC4sBU9 aB7lUqYbOiD3JVwzD935 TaDbeIDaQfppx4hsx7dj pZv1QzJ1THRjupWmqQox RVZ8s5ArMx16E75p IHdpZHRoPSIxNSUiIHZh oHnyrj3zsF0oUl6+PGNv fFM1hPV1bK5qWwCaUnR9 QUavG553LqNlnHIn Pjsnp2syb8vriRq9XmCx YNZkblKkoUhqWVJ3c9Dt Hu46S0QenHeqk3KhRpr8 oy34dXZcn8Q3mVH0 O7YpXFCdmdhzxHObaCux KY8sKWUwakdoQUHhwW7r GVRhV2i9GfWjGaB4EMov Q2QnrlO4IWDimAHn YFYhqRGUnI2woqyiq8kv igmcTgSpOEYeQZc6XUb0 XXYllRinDmSkBIY5IfW9 XRS0dOMhpW7jhPkn lyjhuE3lVmv+YPX9pVWt tDSSBH4wNmzhvMY+PHRk LGN5hUqqJQurDPTmbA5k YSKqH1f6GtHnRuX5 OXmdD7VsytZ6OUTwhREu VPVmkCCRrT3szopdr3ak lmadEaXfCFAnABn9KYu6 LWFsaWduOiBsZWZ0 NcJ2KNR8kRYewN8hfCad mcqneK4gEif+QmlydGgg GEV9WMt7Q7KhWeu7RICj yJwjGZ1pwAJdRNtp Jz1hpAahkZssMX9qFIWl vfmsj517ScGjd2luHELs kGBpFMumLWT7D85ot5X1 UPYaEZBgBCD5cMD4 jV1pwDqvwfkmbQTlcMpw bxRoyWrqGLjnGQmuI135 YESfmGlcXdNqAAk7C0Jp Lbh1HVRbcJghJP7v iODdYIkiZp3seNgmzNpe EX9zGFKkklhip471CeKr r8ghSCGztUWeTKbtLMM5 F00ni1Y3UMOgLDTr BVG7zLR9rE0ydNbbfuhg bGVmdDsgdmVydGljYWwt QVbjA671YVFrpLeiYfKf cLu6A6AoPrl2MOVh rQmjQA1cqEHaLByfBz6m nAkjsBpgQM9qCIOvmsdm n409BqJsy1saEVQqyOGk VBxuXWK5H98xg3U3 QGAnHZYqFHO6iJM4bA8s bGlnbjogbGVmdDsgdmVy zHiiSLwwSCplC257IEYj cDsnPlBhdGllbnQg LVtwZOe7V5QfYvqzxLS+ WY73ZLXcBX05xRSkoUWb g0ywzMe0HfZlGIWhLDT5 eQucTHgas0JtHXCc V40ywMUtw3I7FWUftPfu kIPbQzIhrDN9zR3fNLfq idunv3jsolwoYfbfr1mn vo12qA79T44pNRap ZHRoPSIzMCUiIHZhbGln xe9epL6oWl7+PGNvbCB3 mGR5lR8eIJLnYfJ2ZEfc W438VaKikGQqVbvg h5qfi0ywvLu4JjC8BZJp meEczXybFYV5s2MtQe80 A01bWQtiGBLpFSCiMUWg VVZrbBrpsa3osJ7l Ii8+XPHybMD4tJC9dM0s BlTqIqL6NTaxK006FlMx qTBsPoigX47zV3QogVQ+ FZXxPgj8VXWrjTqw KU4rmVOkEPwfQg7mHCQ0 RoLwOjUeHPscI3GkIAWn ufwblvwkdHG4UEPbXQUo xV33Zv0tnDzvDEHw qSTBlW1zigrfg9xtryip TwSfZVPdYWw4GFp3ZZVq yPzvXfHeOZS7DdR9QJE5 wJTanM7qhLgumfls vK6dS7VrBPVrlcqrRu15 rT6iUyBpKxG7RSbwQkv+ M0gZHbRJIWtvA5yHPJQR DCwOXW8JPWzmqNX+ RHWhDZC7iKayKIbjLGFw rJ5oEBVcL2m5PzGpDrS3 LTpkD0BjWIUlmdegPh88 bT8aNsWlZuI5WYqs C5KvghQ1VVEboFRyJAxc XRB3Z21ti5A8KPXbEJFg ZIR3xIR1gS4dcNocmfcv bGVmdDsgdmVydGlj GMxtJEnwS393BFKbhFop QmY4VsLjYnFfSEZ1I5To Zly5EYAogLfpSX0fyPOm RNheZn0yvPnhbPvd EW5zIEOtkpstNAXthT2g ZIZpbGAeeZeoUK3lFPIu ujwec758XuMdOLL1DJEe jVSjM5PcoG2sRhRs JUXmGOCrQ5FjlDJwBOop L797GHrfZcK9ZGNyobHf Z6PiSZTrjIovFoU4g9N2 Rf0eASRRABDewxuz dGQ+QYZwSYT8tSprYClt HPUquT6zVIRmM9w9AyFo TqV8PVckP5WoVDIyqeyx Nz03mQ0hOvFvGbF7 BLdeD0JtyoW8NNHwcIXs LIwfZAX7V27xk8J9TMAa RVOuTJW6eTV3uR7jpDpv bjogbGVmdDsgdmVy fCmaSJmqSXguJ122SDPy cDsnPkZFTUFMRTwvdGQ+ HYPhRLV7mNugLBjjAUHy lG6lLRDfR7o5VtLe QjR2BHkrB5GcTVLeapmd Yq80hV9aKaGhHdS0CFgm Q2CknyH3QEIafXVqTZzt WFZ3H34dw6E7KZIq PEFqVRA3oAM5tS7jsNuq bjogbGVmdDsgdmVydGlj IEwaRXlnC371ZKHvjCgo IuIoJLXfMB4ktIqu dGQ+MT78lr57Y0RaEkzf Spo8VULlAFK8tKK7oH4q EMTcNSjoe6N6tTY7I6Lw twJevf8oi6rqZQDk SBbxL03ptHQde6R5BAEy qNU6DPMdyZerWyWmqJ37 Oyc+VOYhtHkrb9FfLsgw u9bny0hkhIa5NzIf MEAexjOnyHkoNRB4j8Wp Pz44V25bCOleUOSbAYVy QARpXWRmsWbovl8rpS8b Ii8+XCGugKB6kEF3 fI4mByTqCcG5ZKvjH635 WyKnlTJuPnqsc9lns2nx yRt3IkCsXEVezmUceQtx LVM0m0QpVh44H2Fi rXmvg1JrXjj6lr59hBOk n4L3eEC9Q8MaDJIuzuot sVTyhEbuCT4qTMVkpjdg TILttO9oVIMrA0n6 EeYuQkV8WEkjX3LehdU7 RPFqiBHiWPJhyKYGaS1w qmlox0kmpvmkMpYqPENu GLw5MLu9ZITdaBec DeQiTXH9AvH8TLT6yUOc pR6elMxzuufloP0hIfg+ AZv7p0mbkWPkVP4vjVE6 VE47PJ62mAZhb0Q6 fSD3M7RvLYLgijkrtusm oAZ8OTGpVXAmsQ70Rs8c dAmiLz8hCKHnSRC8JUNu sLKxH1WmrR5qNfHm GUBnPZYcU6QbwRHcPDon Z597JAsyIxG4XRXotiIl E7ExXHRqcTnyZjW4i3Q8 Nd8FTQ49QV34PB30 yQYha8U0fXA6Z3UePQAb tpjykupqzHV1TDXrSZYy yP37Fi5jvGzmNm0xHRUw NPG3RNWxcBWnI4Ga lL5nJpVlOONmTLOgU1Cu hEVtDCguK284VRduVeY1 KYBrqiItV3SsWEDwdLte FgX0k3Z3Nd8IQe86 IZ27XS98kBIiy4H9bVM8 M9JjJWLfnwayxpgnvPM3 YFThUPZmjC63Rf6rjGuz Jk8jZTCvLXJ7SHFc fRZeO5NxfL7wFbQgUFPx SKHoH9UhoXOhTQdyI318 DRroNuN8ICVhzbCsI6Jx XYApgLgwGhP6b9U8 We7ZATqwtbx7X6DlLahd dHI+HR66PAAiAD17eNQf cZWex5ybgNl5HrPeAPIt HVU4jQdmIJlfx0Zw ZXI (more content not included)... Normal [facility] C Urineon 05-18-2023 C Urine Urine Culture ordered as a result of parameters set on specific urine dip and urine microsopic results. 15,000 cfu/ml Corynebacterium species (DIPTHEROIDS) Normal skin jonny isolated Normal [facility] Comment on above: Performed By: #### 5 [id number], [id number], [id number] ####[facility] (DEFAULT)[address] [place] [address] ALL CBC WITH AUTO DIFFon BASOPHILS ABSOLUTE AUTO 0.0 [facility] Basophils/100 WBC (Bld) 0.3 % 0.2 - 2.0 % [facility] Eosinophils/100 WBC (Bld) 0.5 % Low 0.9 - 7.0 % [facility] Erythrocyte distribution width (RBC) [Ratio] 12.2 % 11.0 - 15.0 % [facility] Hematocrit (Bld) [Volume fraction] 38.6 % 36.0 - 48.0 % [facility] Hemoglobin (Bld) [Mass/Vol] 12.3 g/dL 12.0 - 16.0 g/dL [facility] IMMATURE GRANULOCYTES ABS AUTO 0.02 [facility] Immature granulocytes/100 WBC (Bld) 0.2 % 0.0 - 0.5 % [facility] Interpretation and review of laboratory results Abnormal [facility] LYMPHOCYTES ABSOLUTE AUTO 3.1 [facility] Lymphocytes/100 WBC (Bld) 32.8 % 20.5 - 60.0 % [facility] MCH (RBC) [Entitic mass] 28.6 pg 26.7 - 34.0 pg [facility] MCHC (RBC) [Mass/Vol] 31.9 g/dL 29.9 - 35.2 g/dL [facility] MCV (RBC) [Entitic vol] 89.8 fL 81.0 - 99.0 fL [facility] MONOCYTES ABSOLUTE AUTO 0.7 [facility] Monocytes/100 WBC (Bld) 7.7 % 1.7 - 12.0 % [facility] NEUTROPHILS ABSOLUTE AUTO 5.4 [facility] Neutrophils/100 WBC (Bld) 58.5 % 43.0 - 75.0 % [facility] Platelet mean volume (Bld) [Entitic vol] 10.7 fL 9.5 - 13.5 fL [facility] EO # 0.1 [facility] PLT 211 [facility] RBC 4.30 [facility] WBC 9.3 [facility] .Auto Diff 1on 05-15-2023 Auto [place] % 8 % Normal 1-12 [facility] Comment on above: Performed By: #### 1 [id number], [id number], [id number], [id number] #### [facility] (DEFAULT) [address] [place] [address] Baso Abs# 0.1 x10 Normal 0.0-0.2 [facility] Comment on above: Performed By: #### 1 [id number], [id number], 9395925, [id number] #### [facility] (DEFAULT) [address] [place] [address] Basophils/100 WBC (Bld) 1.0 % Normal 0.2-2.0 [facility] Comment on above: Performed By: #### 1 [id number], [id number], 2086976, [id number] #### [facility] (DEFAULT) [address] [place] [address] Eos Abs# 0.0 x10 Normal 0.0-0.4 [facility] Comment on above: Performed By: #### 1 [id number], 84739122, 4636354, [id number] #### [facility] (DEFAULT) [address] [place] [address] Eosinophils/100 WBC (Bld) 0.2 % Low 0.9-4.0 [facility] Comment on above: Performed By: #### 1 [id number], 17500869, 7880407, [id number] #### [facility] (DEFAULT) [address] [place] [address] Lymph Abs# 2.6 x10 Normal 1.3-2.9 [facility] Comment on above: Performed By: #### 1 [id number], 79319823, 0193400, [id number] #### [facility] (DEFAULT) [address] [place] [address] Lymphocytes/100 WBC (Bld) 25 % Normal 14-48 [facility] Comment on above: Performed By: #### 1 [id number], 72537347, 5942640, [id number] #### [facility] (DEFAULT) [address] [place] [address] [place] Abs# 0.9 x10 High 0.0-0.8 [facility] Comment on above: Performed By: #### 1 [id number], 90820193, 5476079, [id number] #### [facility] (DEFAULT) [address] [place] [address] Neut Abs# 6.6 x10 Normal 1.5-9.2 [facility] Comment on above: Performed By: #### 1 [id number], 05263454, 1886658, [id number] #### [facility] (DEFAULT) [address] [place] [address] Neutrophils/100 WBC (Bld) 65 % Normal 44-88 [facility] Comment on above: Performed By: #### 1 [id number], 84610325, 3170836, [id number] #### [facility] (DEFAULT) [address] [place] [address] Standardon 05-15-2023 eGFR Non AA >60 Invalid Interpretation Code [facility] Comment on above: Performed By: #### 1 [id number], [id number], 0533617, [id number] #### [facility] (DEFAULT) [address] [place] [address] eGFR AA >60 Invalid Interpretation Code [facility] Comment on above: Performed By: #### 1 [id number], 38324751, 9649368, [id number] #### [facility] (DEFAULT) [address] [place], [place] [address] Anion gap [Moles/Vol] 15.2 mmol/L Normal 5.0-19.0 [facility] Comment on above: Performed By: #### 1 [id number], 92464464, 7422299, [id number] #### [facility] (DEFAULT) [address] [place] [address] Calcium [Mass/Vol] 9.2 mg/dL Normal 8.9-10.3 [facility] Comment on above: Performed By: #### 1 [id number], 42482522, 8119503, [id number] #### [facility] (DEFAULT) [address] [place] [address] Chloride [Moles/Vol] 106 mmol/L Normal 101-111 [facility] Comment on above: Performed By: #### 1 [id number], 92553720, 7263818, [id number] #### [facility] (DEFAULT) [address] [place] [address] CO2 [Moles/Vol] 17 mmol/L Low 21-32 [facility] Comment on above: Performed By: #### 1 [id number], 39322218, 5002746, [id number] #### [facility] (DEFAULT) [address] [place] [address] Creatinine [Mass/Vol] 0.55 mg/dL Low 0.60-1.30 [facility] Comment on above: Performed By: #### 1 [id number], 91384134, 7093405, [id number] #### [facility] (DEFAULT) [address] [place] [address] Glucose [Mass/Vol] 75.0 mg/dL Normal 74.0-118.0 [facility] Comment on above: Performed By: #### 1 [id number], 38198935, 4704243, [id number] #### [facility] (DEFAULT) [address] [place] [address] Osmolality 266 mOsm/L Invalid Interpretation Code [facility] Comment on above: Performed By: #### 1 [id number], 47670732, 8832497, [id number] #### [facility] (DEFAULT) [address] [place] [address] Potassium [Moles/Vol] 4.2 mmol/L Normal 3.6-5.1 [facility] Comment on above: Performed By: #### 1 [id number], 55962440, 5345036, [id number] #### [facility] (DEFAULT) [address] [place] [address] Sodium [Moles/Vol] 134.0 mmol/L Low 136.0-144.0 [facility] Comment on above: Performed By: #### 1 [id number], 66432558, 0519537, [id number] #### [facility] (DEFAULT) [address] [place] [address] Urea nitrogen [Mass/Vol] 9 mg/dL Normal 8-26 [facility] Comment on above: Performed By: #### 1 [id number], 03158411, 6429390, [id number] #### [facility] (DEFAULT) [address] [place] [address] Urea nitrogen/Creatinine [Mass ratio] 16.3 mg/mg High 4.6-16.2 [facility] Comment on above: Performed By: #### 1 [id number], 76179042, 3337559, [id number] #### [facility] (DEFAULT) [address] [place] [address] Breakpoint Chem Normal [facility] Comment on above: Performed By: #### 1 [id number], 02882844, 7964908, [id number] #### [facility] (DEFAULT) [address] [place] [address] CBC w/ Auto Diffon 4 Erythrocyte distribution width (RBC) [Ratio] 12.9 % Normal 11.5-15.0 [facility] Comment on above: Performed By: #### 1 [id number], 41208857, 8783581, [id number] #### [facility] (DEFAULT) [address] [place] [address] Hematocrit (Bld) [Volume fraction] 39.2 % Normal 33.7-40.4 [facility] Comment on above: Performed By: #### 1 [id number], 51799195, 6047321, [id number] #### [facility] (DEFAULT) [address] [place] [address] Hemoglobin (Bld) [Mass/Vol] 13.4 g/dL Normal 11.3-15.9 [facility] Comment on above: Performed By: #### 1 [id number], 18587067, 1913819, [id number] #### [facility] (DEFAULT) [address] [place] [address] Man Diff? RBC Morph Only Invalid Interpretation Code [facility] Comment on above: Performed By: #### 1 [id number], 55076495, 3625827, [id number] #### [facility] (DEFAULT) [address] [place] [address] MCH (RBC) [Entitic mass] 29 pg Normal 24-34 [facility] Comment on above: Performed By: #### 1 [id number], 02168895, 0088992, [id number] #### [facility] (DEFAULT) [address] [place] [address] MCHC (RBC) [Mass/Vol] 34 g/dL Normal 26-37 [facility] Comment on above: Performed By: #### 1 [id number], 51186048, 7980904, [id number] #### [facility] (DEFAULT) [address] [place] [address] MCV (RBC) [Entitic vol] 84 fL Normal 81-100 [facility] Comment on above: Performed By: #### 1 [id number], 35591070, 4604058, [id number] #### [facility] (DEFAULT) [address] [place] [address] Platelet 228 x10 Normal 138-427 [facility] Comment on above: Performed By: #### 1 [id number], 04533405, 5926571, [id number] #### [facility] (DEFAULT) [address] [place] [address] Platelet mean volume (Bld) [Entitic vol] 8.7 fL Normal 6.3-10.2 [facility] Comment on above: Performed By: #### 1 [id number], 26704426, 7099788, [id number] #### [facility] (DEFAULT) [address] [place] [address] RBC 4.66 x10 Normal 3.70-5.30 [facility] Comment on above: Performed By: #### 1 [id number], 14401300, 3309809, [id number] #### [facility] (DEFAULT) [address] [place] [address] 33032 WBC 10.1 x10 Normal 3.5-10.5 [facility] Comment on above: Performed By: #### 1 [id number], 41859097, 2006843, [id number] #### [facility] (DEFAULT) [address] [place] [address] ED Clinical Summaryon 2023 ED Clinical Summary [facility] - Emergency Department [address] [place], [place] [id number] ED Clinical Summary PERSON INFORMATION Name: LAI DESAI Age: 22 Years Sex: FEMALE : 2000 MRN: Acct#: Visit Reason: Vomiting - ; 10 WEEKS , NAUSEA, VOMITING Arrival: 05/15/2023 13:59:38 Discharge: 05/15/2023 19:41:00 LOS: 000 05:42 Check In: 05/15/2023 13:59:38 Checkout:05/15/2023 19:41:00 Address: [address] [place] [address] PCP: ROBERT MARRERO PROVIDER INFORMATION Provider Role Assigned Unassigned Joelle Nava TANK WASHER Nurse 05/15/2023 15:05:55 Mamie Moore MD ED Provider 05/15/2023 15:56:16 Chrissy Diego TANK WASHER Nurse 05/15/2023 19:19:53 VITALS INFORMATION Vital Sign [...] With: Address: When: ROBERT MARRERO [address] [place] [address] Business (1) Within 3 to 5 days With: Address: When: Follow up with specialist Within 3 to 5 days 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 C/O nausea and vomiting. PT. is 10 weeks with her first child. PT. has prescribed Zofran but has been out of it for 1 week. Pt. is scheduled for a Zofran pump. Pt. states that she has not been able to keep any foods or fluids down. Pt. is A&O X4. PT. has a steady gait. [facility] ED Patient Summaryon 024 ED Patient Summary [facility] - Emergency Department [address] [place], [place] [id number] PATIENT DISCHARGE INSTRUCTIONS Patient Information Name: LIA DESAI Age: 22 Years Date of : 2000 Reason For Visit: Vomiting - ; 10 WEEKS , NAUSEA, VOMITING Arrival Time: 05/15/2023 13:59:38 Primary Care Physician: ROBERT MARRERO Attending Physician: Mamie Moore MD Comment: Visit Diagnosis: Diagnoses This Visit Hyperemesis of (O21.0) Vomiting - ([id number]) The Pharmacy at [facility] is open Saturday through Saturday from [...] alcohol and/or drug addiction problems; contact the [facility] 29/10 Crisis Hotline -Text 5ILOE to 786715. 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 It is important for you to follow up with a doctor, nurse practitioner, or physician?s child development assistant for ongoing care. If your symptoms [...] so we can reach you if necessary. [facility] Emergency Department has provided you with a complete list of medications post discharge. Please inform your cotton ball machine tender/provider of your visit and for further instruction on these medications. Any specific questions regarding your chronic medications and dosages should be discussed with your primary care physician(s) and/or pharmacist. Medications That Were Updated - Follow Below Instructions [facility] [address] [place], [place] [id number], [phone] Updated: ondansetron (ondansetron 4 mg oral tablet, [...] drinking abad (more content not included)... Normal [facility] Morphologyon 05-15-2023 RBC morphology finding Nom (Bld) Normal Normal [facility] Comment on above: Order Comment: Order added by Discern. Result Comment: some platelet clumping observed Performed By: #### 1 [id number], 96475784, 7429802, [id number] #### [facility] (DEFAULT) [address] [place] [address] UA Gcrfe5tu 05-15-2023 UA Amorph. 1+ [facility] Comment on above: Order Comment: Urina lysis Microscopic order added on by Discern Expert Rules system. Performed By: #### 5 [id number], [id number], [id number] ####[facility] (DEFAULT)[address] [place] [address] UA Bacteria 1+ [facility] Comment on above: Order Comment: Urina lysis Microscopic order added on by Discern Expert Rules system. Performed By: #### 5 [id number], [id number], [id number] ####[facility] (DEFAULT)[address] [place] [address] UA Mucous 1+ [facility] Comment on above: Order Comment: Urina lysis Microscopic order added on by Discern Expert Rules system. Performed By: #### 5 [id number], [id number], [id number] ####[facility] (DEFAULT)[address] [place] [address] UA RBC 3-5 [facility] Comment on above: Order Comment: Urina lysis Microscopic order added on by Discern Expert Rules system. Performed By: #### 5 [id number], [id number], [id number] ####[facility] (DEFAULT)[address] [place] [address] UA Squam Epi Moderate [facility] Comment on above: Order Comment: Urina lysis Microscopic order added on by Discern Expert Rules system. Performed By: #### 5 [id number], [id number], [id number] ####[facility] (DEFAULT)[address] [place] [address] UA WBC 5-10 [facility] Comment on above: Order Comment: Urina lysis Microscopic order added on by Discern Expert Rules system. Performed By: #### 5 [id number], [id number], [id number] ####[facility] (DEFAULT)[address] [place] [address] UA w Culture if Ind Standard on 05-15-2023 Breakpoint UA Normal [facility] Comment on above: Performed By: #### 5 [id number], [id number], [id number] ####[facility] (DEFAULT)[address] [place] [address] Color (U) Yellow Normal [facility] Comment on above: Performed By: #### 5 [id number], [id number], [id number] ####[facility] (DEFAULT)[address] [place] [address] Culture? Indicated Invalid Interpretation Code [facility] Comment on above: Result Comment: Resu lt created by rule GL_MAGR_ADD_UA_CULT Result created by rule GL_MAGR_ADD_UA_CULT Result created by rule GL_MAGR_ADD_UA_CULT1 Result created by rule GL_MAGR_ADD_UA_CULT Performed By: #### 5 [id number], [id number], [id number] ####[facility] (DEFAULT)[address] [place] [address]126 Glucose (U) [Mass/Vol] Negative Normal [facility] Comment on above: Performed By: #### 5 [id number], [id number], 7368843 ####[facility] (DEFAULT)[address] [place] [address]60 Ketones Ql (U) >=80 Normal [facility] Comment on above: Performed By: #### 5 [id number], [id number], [id number] ####[facility] (DEFAULT)[address] [place] [address]644 Micro? Indicated Invalid Interpretation Code [facility] Comment on above: Result Comment: Resu lt created by rule GL_MAGR_ADD_UA_MICRO Performed By: #### 5 [id number], [id number], [id number] ####[facility] (DEFAULT)[address] [place] [address] UA Bilirubin MODERATE Abnormal [facility] Comment on above: Performed By: #### 5 [id number], [id number], [id number] ####[facility] (DEFAULT)[address] [place] [address]28 UA Blood Negative Normal NEGATIVE [facility] Comment on above: Performed By: #### 5 [id number], [id number], [id number] ####[facility] (DEFAULT)[address] [place] [address] UA Clarity SL CLOUDY Abnormal CLEAR [facility] Comment on above: Performed By: #### 5 [id number], [id number], [id number] ####[facility] (DEFAULT)[address] [place] [address] UA Leuk Est Negative Normal NEGATIVE [facility] Comment on above: Performed By: #### 5 [id number], [id number], [id number] ####[facility] (DEFAULT)[address] [place] [address]69 UA Nitrite Negative Normal NEGATIVE [facility] Comment on above: Performed By: #### 5 [id number], [id number], 8399201 ####[facility] (DEFAULT)[address] [place] [address] 25348 UA pH 6.5 Normal 5-8 [facility] Comment on above: Performed By: #### 5 [id number], [id number], [id number] ####[facility] (DEFAULT)[address] [place] [address] UA Protein 30 Abnormal NEGATIVE [facility] Comment on above: Performed By: #### 5 [id number], [id number], 8533027 ####[facility] (DEFAULT)[address] [place] [address] UA Spec Grav >=1.030 Normal 1.001-1.035 [facility] Comment on above: Performed By: #### 5 [id number], [id number], [id number] ####[facility] (DEFAULT)[address] [place] [address] 11387 UA Urobilinogen 1.0 mg/dL Normal 0.2-1.0 [facility] Comment on above: Performed By: #### 5 [id number], [id number], 9091717 ####[facility] (DEFAULT)[address] [place] [address] Urine Source Clean Catch Normal [facility] Comment on above: Performed By: #### 5 [id number], [id number], [id number] ####[facility] (DEFAULT)[address] [place] [address] hCG Quantitativeon hCG Quantitative 844333.0 mIU/mL High 0.0-0.6 [facility] Comment on above: Performed By: #### 1 [id number], 37812492, 4768862, [id number] #### [facility] (DEFAULT) [address] [place] [address] Coding Summaryon 05-02-2023 Coding Summary HTMLBase 64 UuipwlpsBHc1bDw+PGhl YWQ+MT2TBPMhV18crFKq nZ2kD9FVCSbBXfzlQYXH ZRyOSzKdkkEtKP1quUMk ZXJu IC8+KT6hSMQhQdhzeDVa k2L6eHK3T05byo9xQRcb sWN7MAMeFfRabvaqq5ak vQp6VRkhNbotUsLg AEQamX36DJO1aN75Lz67 aEHgoKHxl8nbySt1YzKd CCZbQLE2wDcdDZmor2Id JHBbS49ewHKkg6C7 IGNvbGxhcHNlOyBlbXB0 oQ7xMVcwqphpd6gzicby Cms5py60aTXnk9V3uEX8 M8UizrY1DMYobVPo HjxkmVHGwJ5cldgen7ut qozuTvSuEJCqXXm9GMe8 HZTpePdiDsDiDE78AIO6 BLTcipKqC8ThITDq rOfvNiA6g9B5Ek1BH4BP PzoxB8ZBZZNDGZqczVY+ SA23vy27C4OyRwfzCai5 WRCdOID9mRR3vB2l THLzRNaqq5F8yIY1E0Li bgHulu8ow6tyENKrHWsz W30fsJMoz0Z9VGQcrOD2 KJZcyNmiQeAjeY43 Oyc+ODBofNabu4HnKnnl c1qlq2abmUm0IeqqEKDe mvZacXznUDV8y7ZjKv3n XFHpfGU5vER4rL5t MfJpGnA5YSudT503XjWv pIVzMvbtY67wI9PkqSH+ MGZtBve6AEJxdQmoXK7k O1VrMRYwphxuuPSc mYliFL8uGWXaimssJKKm tU3sCWWiO3d8MoImCdC5 DErzB6CmNDUxvliuGt62 nV3iGbTbOcP7EKjq G7OsvrF8LFFiyBQwMCce HFA6T40jf4M1EOMfJAOe YQL0tVZ5pV8imYmjbpio bGVmdDsgdmVydGlj WBoiKGvgT246REYomVdc PkNvZGluZyBEYXRlOiAg MDEvMjUvMjAyNDwvdGQ+ COPmAVA0aJfmSQJn mPPtEQvzBm1svYyjcJrx TC6oFVNamiqsNVNwqV5k KTQukFYhnCutMJ1sOUPx oebky871YvUkXLR6 OAFspDOnY2QauC6wBvXj YOVfGHXqV2AisVCySVoh F588BOmdLhX5LKDjbbHq V8FhUWFpwXxkBlX2 b7Q8Hw4Bu1NexyswW1Zq rVVqRgEgEdsmDFf1P9Ad PjwvdHI+UI26ZPLvKA82 HCs3BNP6nDtbLCnn HEXdZ9KibN9rUlRfSSCr ZGRkOyc+PHRhYmxlIHdp ZHRoPScxMDAlJyBzdHls BL8qUs4xGPTzQYLm yUjqfUPaNyZuj7noMJMf USngIU7pqMrgK0NnvZZ3 JQRkr6l3Ry51J97qN4Ue dXA+ISExpNN2vSN0 wH8eQnUmBeC6RJnmU197 WhWotJQiJtcrj5zcr3ab jPm4OgP1RBXzqiTqbEsx VCU5s2SaMi75Q65e IHdpZHRoPSIxNSUiIHZh xZzivm7rlA2cLq4+PGNv jIM2cEE3kV8tTiAjTmR5 EFcdA401XuEjeHSo Agwhq9caq6mgfUf2PxIm USPzrpSpmBjhICG5g3Eq Oe54Y3KajUokw9ZdPvp6 bl75jETvj3C4fLZ9 J0FwKQIbxygwdELlsQda MC7yNWVtxsjpBCZsuY6j VCZvM8f3FaDpHbC3KZvi Y9IcevI0LTBqpDFy DCNoyMGCeZ3zqafau6uq iqhhSrTrWDNhYAa0OLj7 TTOqkAnqYsPgLZZ2OwS1 ZTV3sDGstR5roApa vnrvbA5gBap+DSJ0fZIg rFUNJG0aJzxsyJN+PHRk REZ0dMbsXMnyJMGgiR6z RDXaG5z0GdUgXnD8 YCleN9VtqyZ5AZCjqEJk TOXwgFJCjN7ekrauz2qi srkgVaLsKWAlZSh2PBh8 LWFsaWduOiBsZWZ0 QrF4NUY1kQAmmC6ofPyo axhpwO1dHso+QmlydGgg PXM4FFw9Y8IuLry5JQMh vQuvRC5zdHRnKXwl Qb5znViihNjgXN5dFKRi pfywu597TtBlk3baVWNo dULbXFrvVBR9O57gg9W3 FZGtIFRaEPG7lCG7 tR2vkLsojvxelJQosVlk cyQusMadMZzkKVrmO601 BKEpkEkuAlAkZSm7G2Ny Opf5QMGwgIzkPB2l sLZdYYceEc9ujZzrnDum CL6kUEAjujnwk624XkGz z1udMCArnJPoQBxnWQH3 J70hc5N8MPIhUUJr NSR0wSH6fL9ehEeqazrk bGVmdDsgdmVydGljYWwt IEfbF985YVWjhKwbMjJt wTc2K7DuHxm6SWYh lNfhGF1myRRrPQcxZu4g mRngtPtgOC9bABFmyfmc h224KuFna6jhOVDumGFw BBbuXWE2N04vi9S6 RVRsALMmIIX0gAO6nH4j bGlnbjogbGVmdDsgdmVy bUwtOPeyLQzyM963WGVr cDsnPlBhdGllbnQg UBecKMx1X0AtKufbvHS+ DC37METzUU42zSEtaGQz z1zfgUs4WcTqTGWwOWE1 oQmuWDgzk6RmEMGh A50pgNAuj8W6XXVpxMrz yPYcAtGxoQA3lL4pLDhc yjarn4dtxxziSdmfb4zt es70sW82U43vMOot ZHRoPSIzMCUiIHZhbGln tq9qtK6yJq5+PGNvbCB3 bQW8nT8bLFWeDrK4AJuf B142QpTlsAGeVnnr w8dfq2dmkPj2KdB1LJOo xrXxbTbdMUV2z9UkOh72 P55cVAwpFZPuXYVwLSKv SEFkjQnxxu6udL8c Ii8+RXYnuVR8uWX9sF5m NuFpWjI3ZUvtC928HkZl oYZyZdcdI61vK4DraLT+ EDQsAtx0JRAgbIeb EI2osZMlFRftMg2cFWA3 AkIqHmGdBFwqM0JhGYTl raqhholkhJI7ENBxFRKu qA15By1phTguQXBp zVSBaN5tttbyc4pirudx ShVyTQLxZOl7MOt8EVKj nMcyKvOqDMA9AwG4LRU2 cPOdoV0tqSlcndnx xY4yJ3YjUJWaomlbXu00 xC4mJpJqAyK8QFtiAgy+ Y1nSWaNQAHtgX4gCSPVM SRiBAK6MXMuinQB+ KUFdBKO3uVdsRHusRFJn qV7wOOIaC2a6NkNuJuJ8 TJbsN8LeGMDwcwcbXx91 vZ6zXtYqQcX6EQwn L7ZnyrP7LKPgaTDkRYnv QHR4K16xo5Q6OJYtYSJo LWA7zPM8mE0dcIywcfzm bGVmdDsgdmVydGlj QWvtPXhxF156ITScnFcq XyT9SmPeMuQaSRJ4I4Qy Sdm5WIJvjGzlRI1xzSZy RBzbZo4gbWlawEse TL5yKADhuszfKOFdvZ3r GYUdcHFdhAlkUZ1iZMAs ouwxe739IdPyNNH8AZAm uZGrV1NqyM7eLsHh CORsTQXhR2MpbFAtWXjm B784UFerJeV9HTVvvuIq I9PoBBLknZlyFjM9e0S9 Uh0fVBVZIBDtcbrb dGQ+MCFcVPF6uMuqBZhe MITczA4gBXMiH1t9OgNd YoT1UTaoB8XsYCOpxchk Pc42gG1oEgAxVnL9 FDfhD5CssoE3AXCroWMv VVopIOY4U20uy1Q4CAOv PSTwAZW5cDF8sL8dfAhs bjogbGVmdDsgdmVy lNwsMAxxNWgaV580PDHl cDsnPkZFTUFMRTwvdGQ+ GZYnTOA5zGlhIMqzTGGn sR1cOLMdF0d4YwMv LlW5LEbyW0NdNFVclvvq Fx74vL3lTwPfDiY5NRxq V3NsrtO8FBQmiMCjJCot YWL0H69ok9C8TIBz PIJnACI9lBE9eJ9ucCfd bjogbGVmdDsgdmVydGlj VYtfGXvnD521HFOzyYre JqPqIGTsKE6qlZwb dGQ+JO90oc98D6QgFsvx Fmp3YCUaKRN7eEV7zE1j ECWpJQixi0W0aCZ8T1Tg sfVetg6fj6ouCJIa FVdtB70azVPlm0F9BIUw jLB1QPIlpKyvKwZjfY43 Oyc+GWJffZhoa2DaHtws k2hlg8jqfRu2IpZg RKNzvmRvhCldGBG3e6Yd Vm91V76yMLpyZJAfKIAc AFTvRRNrwRcpsk5ejD8x Ii8+TTCusJI5gBL1 oZ0dCtGrOcU4IHdpH165 LhYyxDJdTnjra2pku3cd eTc6CvPrRWCcjvFixCbk WZA3r2JrMe48L6Bo pCdmr2QcCap8qu53lXCf m0F6jLN5D2VnQMLydnue oTDwtAbgMH5wAYGkeigm LOWosJ3gFIPlA1q2 KjPcVsF9VWjnB2OodmL5 HUBgaDElNERxaBJLfR6b yufbj8nobvydWsJgXANe WIm7WIc9XJKgbIeu ZpEfTTX2PsU7AXY6nAOx gV2xvBmnrrxueR7fCfc+ HEe7p5jjrLQrFR2odXE2 XE61DA89mGYqp2Y1 bYT3S2KfEQGrelxxqfyp nUC2HTAiUTVnlM94Ic2z bAlhAl5cHSSrLUU7VQNc yLSsO1HjqK2qGgZc QMKgIYMjD1HcbILqDAfl I947VEleHvP5DQEpgoOd C5YuNDXdtXcwDrA4x0Y0 Fj4YNX89BS31EO39 pYBuh1K4sOC8K9ZiSPGq bpcrhmhetYF0LIXlKPZv vA53Op8kkKokEi2gXMEn STR8UDNjiJZvU6Ok jJ0mHeNlLOPfAMWrC0Bs aDFcERsfB131AWnnBvG9 PEYiqwNqG8KuJRRfpVem EnD2y3J9Ei3TVc85 KA89WN47pPAxe3D1rZL2 F1UzRKIlrzgtkxnheWJ8 SPZpZCHisX88Ml7lyFoy Zw1wRTYeVAM3WDMv sHFaE6KcaZ4fFrPbLYZo NLDxW1OcsTPfZIrcQ790 UVnwKaI6ESXbyaNrX5Lm SLEcgQrcSlG2u2O0 Aj6ZUBmtyua3N8FpFncp dHI+MD26BBTwIN24nWZg vJJzd7oyqFe3PqPnYUVd AXW1mHhuLUaxr7Rp ZXI (more content not included)... [facility] Coding Summaryon 05-01-2023 Coding Summary HTMLBase 64 PlupqvqcHYe9fYz+PGhl YWQ+CG4KZMUnT45imDLi mJ4eV0SKOUmKXakaMWHW ZDfWTjBovpYqRY1luTDb ZXJu IC8+HV4qKRTjFamafORv l8X1jUA0R36swm4pRDkp yMQ7EZMoNyPkkxrzx9il tYl1WAvuXgrwOsZi TGLgsP75MAT2zL81Bg14 mFXjrWMjn3omiLd3QoGz UEIfYJH3qJfjSZcsa9Su CKPpO74aoQWzx5S0 IGNvbGxhcHNlOyBlbXB0 nI4nCNpujdeui0dcgwbf Kjt7of91dNXdc7L3kOG3 G3QjdnJ7IFEtzVHq RpetzAZCkC3sqnkab6rj mrroVfZiEOOiBLu1FOs0 OKIrwNwqVrYpBH86ZNU3 OKNexqCqP8DpINEl uYwvKcL1g0P6Qu4NP6WO DfhsB6RNHBSDQIuuiKR+ BP78rl21J4FlFawwNxe6 ZYAwPWE0eCG8jD9r BLYtREutb2Y1vSU4E8Un ycPisw5sf6mkNNZgFEfr Y28hbJMgy0H0UMIylUB4 QICabFrvWxVnwI65 Oyc+JLMmaPpzf0PrBqaj l2mue6ochEb2MhtvJXGk obYzoWhcRKH8a0SnSb5l DGMyfMB0tVE7nA6q XtIhMcA9JFeqQ286NfEx aCUjSbspK13lL1OvlWS+ MPTiVda8BMShfZylIP5g A5LtGDQfquvdhSRm rTemRK6iZIUrswtqRCZk aB4aDEPiS9g6JdWkAfZ8 QLgpY5DkBQJxahfiUm63 jU0xLrKcAgP0LNyn R0TjpkQ7PPXzqUTyJGny KEY6P87hu7C2NSDxNVQs NJQ3tAC8fU0maBzktvsj bGVmdDsgdmVydGlj DYeyAPcwA463DCIksNkz PkNvZGluZyBEYXRlOiAg MDEvMjQvMjAyNDwvdGQ+ TWHfUTG7sUlzEMFf cRZzZApiGm5ewMuduCii UV4nKYKckhtsSABczE7s REGpxIUtvUwcZH1hBJKi cazpw107VzWmPLP7 MQWseLPqF9GocX3bEsAy WEDgHKWsZ8EgcRSgJEyk Q921OYceTuJ7GYRnerAd J6DyNJQtnSvySqT1 w8P8Oi7Pv4AhqbbuE3Wk yJZeLjWcPjsjKEf3Z4Tt PjwvdHI+TD00QFLvCI54 KBg2ZVB1hBcnXMzz HVYcJ5CppC7yEyDxNZWb ZGRkOyc+PHRhYmxlIHdp ZHRoPScxMDAlJyBzdHls YG5jIs0nXTLdTBKl eIavoINhChBls7igWMDt LTfbOL5xzEnqS9QajGQ6 FJWkv1o2Nk34T85kZ2Ar dXA+JDRdtDI4vNB1 kW6rPjMkAeS4HTxlN376 MrLpeBZbVvabb4ijw1yz yXq7LwB6DYSttdMuoRjz SBC3h5DcJd58Q74z IHdpZHRoPSIxNSUiIHZh dMgfzg6yxG5xAx7+PGNv pQZ1aNV2cJ1lRhUzRaA1 FWgrG141TnXqwWWn Oyexc5fnh7wmlJk9VyPq MZHxtoJtmLaiIWY6d5Mt Cp78R7GajKndb4AbJwa6 wy84wDTqi5C9xWK2 E0HrHNEtblxtdOQlmBoa KW7cZWNhgrpfPHHlqU5h UBYwJ5p9IiNdZcS1JDpw Q5RcabG9MLIaoHIr XLOyuWEPzB2qbuefl5ja gunwAuGoBBHmTYp1WUg8 IPDpuNwfLqClCSG7CvR4 FLF6mDAftD5zpGcc xrllzG4mTdk+OPY0dPZg cTFLIR6kDgahoVS+PHRk DRI8tNxjSHaoXJIliJ8e RHZjU5a6FcYcShN5 YIbpL7KrkjI4HAZwxCXt FTOlyYMEbM0kmlmeq6ah uzqkHuYeNTShJAb2NBg5 LWFsaWduOiBsZWZ0 KhR1AIA4cSZedN3hzByg lrgxlA7iScf+QmlydGgg DXK1XFn1Z8LdYmi1VKQe cWgeMK6vtNHhVDpl Zn6sbPprjLdbGT1nORQu sdzzc801WuQkn7qoHGMi gDGsROdfNYH3T09mm9G0 YTDuAPSxOZS4dAV0 eO2cvYkeihyyiLVhtJqb arMahPmiBPasCLjeZ105 JZOnzCefZdQkBJa9O3As Phm3KLXbqPgxVU4h aDZbUNaeNj8wkMnsoJqt RO9dZLWvmjhvk750LiXy m2yiVEFfoSEzPIknBCV1 S09am0F6LIAwXMNp LED7cWH8yA2xwAwuzxsp bGVmdDsgdmVydGljYWwt XTysL589SSVzgSsuBcMj iWg2Q0AdBor3RBYe xHmqFI9xoXSgBHxaVf5x bRcxfAflSX6xKUFscfey r679OjPrv5zaMCEbpBXs ZShxMJC7D90fu7K8 OUMqUNHzYGZ6gWT9oV4g bGlnbjogbGVmdDsgdmVy yCfzLJgdJQezK889ANLu cDsnPlBhdGllbnQg NJvcYGa5W9KtGhwjoMK+ DI67QDRuNL83sMYksZKg u0adgKo8TlTaYLSbMFG2 rSrjCNtay4EcUVRz C96saGEph6U0QKPunBut nQQqHeBtbYA6xB1dJFfl fwsix5rojuyxPqxow0ub rr82dZ64X94kGCxx ZHRoPSIzMCUiIHZhbGln lp8zyI6xWn0+PGNvbCB3 yRF2kM9bMTLgFkP1YMqx L298OoEteEBmTiwf n8bei2kqvXu6LoB1YKKx cmAwxFrnEMM2x8KwNa94 T69gTCjaYRYbDCNnRCLr BJDgeYtecg5zmX1g Ii8+OFEhtWP5gMM6qL3o YtRoNvK8STpkK655LmPq iVInNyomR15pT1KagRV+ FJTwBbq5EXYigFar MP7xtBNwOAueXo5yKZP5 TaMkGbEvOLbyK4ZzMJTa fmetvfesoRK5XHEcGRDa fH77Lq7ecEeaKVIp sZICuK2lsvjpg7cwnkis SzOoMRDxUUs1CKe4DMFb tKbuRrIeBZD0XlA9EDG6 vXEknM5isLfsqchw nD1iC2NpYATinfqvJh29 eN9pUzCiMbG9QQctKvs+ I2iFTfXBKChiZ5mLZJLE AEfQSA7KZJsmkJD+ FIInQHX3dCbrKAwqNKWw nH8lILSaW8b5RpWsGqE2 OQgrA9ZnOIGhgporGx89 tQ9vUkJcGtW3VCwa R5ZursL4PYLusPBzZVmh SDU5Z28kx5G5UJWhLEVe CFD8yVZ4lZ6zjEzdcpff bGVmdDsgdmVydGlj WDihSBzgU150DBOebJnc LxR6JqWeDiHyYEF1Y5Ug Xgh8SNTgpLilYS7fqCXo IQisTb2lzKwirAgz XI8pPMJkixdqMOTcyF0l QYFbuFWeqXveMJ8tQUTt vxvny615WuUmXQZ9HHNv uLTcQ0MtbP4wKgYu QGTeUNItZ8ImgSEgULew V231SJudAdT8XYZmepRv I5LrMKDaoKmlCfU6t3E5 Mh5tXLXITQKwcfnh dGQ+NGScNUB8kEeqCKgu GSBxgS1vRZSlK7q6TeLa XzG7QGtsI5EvHRJeczlg Jz72kW7wFoKwUaK4 VTtdS7TwxmQ5ZQMbyFOx QOjzNXZ2U94lf9M8UTKl TETfUDU6eWK7eX0dfGho bjogbGVmdDsgdmVy kMcxFElaAHybJ881CTHl cDsnPkZFTUFMRTwvdGQ+ FDUqNGN4zAizZAunJAHb jA3fLZYvV3k8ZdBl RcV9PXinI8QfWYYehtqx Lp82yF2xOoEsYdY9COza Q1SogsA5UJOnfYHlKRzm ZMI4D80lh0L0SAZv YSMtKAD3tIO0dZ5tcPbi bjogbGVmdDsgdmVydGlj XGvxERqvG803KCKjsDic Al6UOV30NO57E2Lf PjwvdGFibGU+PHRhYmxl IHdpZHRoPScxMDAlJyBz hSweAG8kRt9zMFTiJBZa iCeuxCLfWdJul6qy IKErODhhXB8jhXqtW3Kw eWK3COArx6l8Cz39A70k I6FhtMR+TVAieNI1tKU9 iY1kMlNoWkW7LCkp P599LoQycBArKfqxu4iq d5ofiCs5BrBbXWTbkrMd dFmqRDX7h9VnLq45J08t IHdpZHRoPSIyMCUi FCMpkZfbuu4hgX4yRh6+ LDJawZJ3gES1lC2yWmCl NqX6ENdyX099UiGcoJAa RbiqV56tU0XrtXN+ VNZiMjo8OZQxzEvpDQ2j tWMdWYveKm8yZPY1OpYk JgZqGUxlX0RyICSbkhje crasrRX8ARQuNREt iY07Jh2avOiaUp0dPRNz OQS6XHPhdPScF4RnsZ3l TdKcUGHaFJYiO4RuxZSb NWgmZ656NEdkEnV3 SHFcdxQmW9CcGSEogKjs QhJ4i7Y2Yq6YzQdxvZJq SQ8mMaOdSFj1C2GtStp0 WJKyqMenKW2bjRYj SGkhJw2seDrlkTpaDM0r CKWobpztr879LyVpf1fe IOVjcVZfCAhhOTJ5D91d n5X0TLFmKQKhBEN9 hWU6yD3ljWvorshepUOw dDsgdmVydGljYWwtYWxp O446RIPeoVoqSyWWXyi4 S8IfIvi1LHSauBcz AR8dzYQaDWsuGj5wgZxn cBziGB9zUTBgprnvh292 JgWzh8toRATycGViCApu BLT4X54hw4I5PBBz RMKtKRW0mRJ2tS7isCsl bjogbGVmdDsgdmVydGlj DNqnSUwmE097QZWnmWey Qo2BRhn6Q2PfWer0 XLEfmUenPW1rnUEeZBam La6ctIsaaIxvJX8oNEZi jxbav171GiYos6dsJFAx uRCiIAvsPFJ7N95h j9Q3MMTpDCQySUI5yCD6 dP5fhAaxgndknJHhwKoa hpSniZjtFPhhHDxjX771 IHRvcDsnPlBheWVy OjwvdGQ+UP93me60L2Fi SksmEkk9TCXjHCV2rYQ3 rK5mTFXcREdmq8J6vIV7 S1SqmdBhno8ft9lf YXB (more content not included)... Normal [facility] .Auto Diff 104-15-2023 Auto [place] % 8 % Normal 04-19 [facility] Comment on above: Performed By: #### 1 [id number], [id number], [id number], [id number] #### [facility] (DEFAULT) [address] [place] [address] Baso Abs# 0.1 x10 Normal 0.0-0.2 [facility] Comment on above: Performed By: #### 1 [id number], [id number], [id number], [id number] #### [facility] (DEFAULT) [address] [place] [address] 55833 Basophils/100 WBC (Bld) 1.0 % Normal 0.2-2.0 [facility] Comment on above: Performed By: #### 1 [id number], [id number], [id number], [id number] #### [facility] (DEFAULT) [address] [place] [address] 44511 Eos Abs# 0.1 x10 Normal 0.0-0.4 [facility] Comment on above: Performed By: #### 1 [id number], [id number], [id number], [id number] #### [facility] (DEFAULT) [address] [place] [address] 78523 Eosinophils/100 WBC (Bld) 0.5 % Low 0.9-4.0 [facility] Comment on above: Performed By: #### 1 [id number], [id number], [id number], [id number] #### [facility] (DEFAULT) [address] [place] [address] 49889 Lymph Abs# 2.9 x10 Normal 1.3-2.9 [facility] Comment on above: Performed By: #### 1 [id number], [id number], 8585775, [id number] #### [facility] (DEFAULT) [address] [place] [address] 47776 Lymphocytes/100 WBC (Bld) 30 % Normal 14-48 [facility] Comment on above: Performed By: #### 1 [id number], [id number], 7172624, [id number] #### [facility] (DEFAULT) [address] [place] [address] 83009 [place] Abs# 0.8 x10 Normal 0.0-0.8 [facility] Comment on above: Performed By: #### 1 [id number], 82494601, 4391705, [id number] #### [facility] (DEFAULT) [address] [place] [address] 14800 Neut Abs# 6.0 x10 Normal 1.5-9.2 [facility] Comment on above: Performed By: #### 1 [id number], 13277977, [id number], [id number] #### [facility] (DEFAULT) [address] [place] [address] Neutrophils/100 WBC (Bld) 61 % Normal 44-88 [facility] Comment on above: Performed By: #### 1 [id number], [id number], 3495712, [id number] #### [facility] (DEFAULT) [address] [place] [address] CBC w/ Auto Diffon 4 Erythrocyte distribution width (RBC) [Ratio] 13.4 % Normal 11.5-15.0 [facility] Comment on above: Performed By: #### 7 [id number], 58010920, [id number], [id number], [id number] ####[facility] (DEFAULT)[address] [place] [address] Hematocrit (Bld) [Volume fraction] 40.7 % High 33.7-40.4 [facility] Comment on above: Performed By: #### 7 555759, 05210177, [id number], [id number], [id number] ####[facility] (DEFAULT)[address] [place] [address] Hemoglobin (Bld) [Mass/Vol] 13.7 g/dL Normal 11.3-15.9 [facility] Comment on above: Performed By: #### 7 [id number], 66037784, [id number], [id number], [id number] ####[facility] (DEFAULT)[address] [place] [address] 54561 Man Diff? Auto Invalid Interpretation Code [facility] Comment on above: Performed By: #### 7 [id number], 45548578, [id number], [id number], [id number] ####[facility] (DEFAULT)[address] [place] [address] 92913 MCH (RBC) [Entitic mass] 29 pg Normal 24-34 [facility] Comment on above: Performed By: #### 7 [id number], 89141162, [id number], [id number], [id number] ####[facility] (DEFAULT)[address] [place] [address] 80209 MCHC (RBC) [Mass/Vol] 34 g/dL Normal 26-37 [facility] Comment on above: Performed By: #### 7 [id number], 98788702, [id number], [id number], [id number] ####[facility] (DEFAULT)[address] [place] [address] 76536 MCV (RBC) [Entitic vol] 86 fL Normal 81-100 [facility] Comment on above: Performed By: #### 7 [id number], 41724027, [id number], [id number], [id number] ####[facility] (DEFAULT)[address] [place] [address] 78570 Platelet 430 x10 High 138-427 [facility] Comment on above: Performed By: #### 7 513440, 26199418, 9948901206, [id number], [id number] ####[facility] (DEFAULT)[address] [place] [address] 11199 Platelet mean volume (Bld) [Entitic vol] 8.5 fL Normal 6.3-10.2 [facility] Comment on above: Performed By: #### 7 150298, 40679211, [id number], [id number], [id number] ####[facility] (DEFAULT)[address] [place] [address] 98121 RBC 4.75 x10 Normal 3.70-5.30 [facility] Comment on above: Performed By: #### 7 625484, 97369841, 6760212756, [id number], [id number] ####[facility] (DEFAULT)[address] [place] [address] 12754 WBC 9.9 x10 Normal 3.5-10.5 [facility] Comment on above: Performed By: #### 7 982189, 43344124, 8248045505, [id number], [id number] ####[facility] (DEFAULT)[address] [place] [address] 05566 CMP Standardon 04-15-2023 eGFR Non AA >60 Invalid Interpretation Code [facility] Comment on above: Performed By: #### 1 [id number], [id number], 0263846, [id number] #### [facility] (DEFAULT) [address] [place] [address] eGFR AA >60 Invalid Interpretation Code [facility] Comment on above: Performed By: #### 1 [id number], 78665741, 7554626, [id number] #### [facility] (DEFAULT) [address] [place] [address] Albumin [Mass/Vol] 4.5 g/dL Normal 3.5-5.0 [facility] Comment on above: Performed By: #### 1 [id number], 36670746, 3064457, [id number] #### [facility] (DEFAULT) [address] [place] [address] Albumin/Globulin [Mass ratio] 1.2 {ratio} Low 1.4-2.6 [facility] Comment on above: Performed By: #### 1 [id number], 07138059, 4618783, [id number] #### [facility] (DEFAULT) [address] [place] [address] Alk Phos 68 IU/L Normal 32-91 [facility] Comment on above: Performed By: #### 1 [id number], 57162929, 3181705, [id number] #### [facility] (DEFAULT) [address] [place] [address] ALT [Catalytic activity/Vol] 34.0 U/L Normal 14.0-54.0 [facility] Comment on above: Performed By: #### 1 [id number], [id number], 9207952, [id number] #### [facility] (DEFAULT) [address] [place] [address] 93873 AST [Catalytic activity/Vol] 27 U/L Normal 15-41 [facility] Comment on above: Performed By: #### 1 [id number], 48049326, 6187388, [id number] #### [facility] (DEFAULT) [address] [place] [address] 48928 Bili Total 0.7 mg/dL Normal 0.3-1.2 [facility] Comment on above: Performed By: #### 1 [id number], 78496414, 6639551, [id number] #### [facility] (DEFAULT) [address] [place] [address] 99172 Creatinine [Mass/Vol] 0.77 mg/dL Normal 0.60-1.30 [facility] Comment on above: Performed By: #### 1 [id number], 39735530, 1109063, [id number] #### [facility] (DEFAULT) [address] [place] [address] 65700 Globulin (S) [Mass/Vol] 3.6 g/dL Normal 1.5-4.3 [facility] Comment on above: Performed By: #### 1 [id number], 39593598, 9632045, [id number] #### [facility] (DEFAULT) [address] [place] [address] 83665 Osmolality 269 mOsm/L Invalid Interpretation Code [facility] Comment on above: Performed By: #### 1 [id number], [id number], [id number], [id number] #### [facility] (DEFAULT) [address] [place] [address] 90460 Protein [Mass/Vol] 8.1 g/dL Normal 6.5-8.1 [facility] Comment on above: Performed By: #### 1 [id number], [id number], [id number], [id number] #### [facility] (DEFAULT) [address] [place] [address] 01647 Urea nitrogen [Mass/Vol] 10 mg/dL Normal 8-26 [facility] Comment on above: Performed By: #### 1 [id number], [id number], [id number], [id number] #### [facility] (DEFAULT) [address] [place] [address] 17843 Urea nitrogen/Creatinine [Mass ratio] 12.9 mg/mg Normal 4.6-16.2 [facility] Comment on above: Performed By: #### 1 [id number], [id number], [id number], [id number] #### [facility] (DEFAULT) [address] [place] [address] 71756 Calcium [Mass/Vol] 9.0 mg/dL Normal 8.9-10.3 [facility] Comment on above: Performed By: #### 1 [id number], [id number], [id number], [id number] #### [facility] (DEFAULT) [address] [place] [address] 67983 Chloride [Moles/Vol] 104 mmol/L Normal 101-111 [facility] Comment on above: Performed By: #### 1 [id number], [id number], [id number], [id number] #### [facility] (DEFAULT) [address] [place] [address] 17085 CO2 [Moles/Vol] 23 mmol/L Normal 21-32 [facility] Comment on above: Performed By: #### 1 [id number], [id number], [id number], [id number] #### [facility] (DEFAULT) [address] [place] [address] 15548 Glucose [Mass/Vol] 94.0 mg/dL Normal 74.0-118.0 [facility] Comment on above: Performed By: #### 1 [id number], [id number], [id number], [id number] #### [facility] (DEFAULT) [address] [place] [address] 01429 Potassium [Moles/Vol] 3.9 mmol/L Normal 3.6-5.1 [facility] Comment on above: Performed By: #### 1 [id number], [id number], [id number], [id number] #### [facility] (DEFAULT) [address] [place] [address] 79754 Sodium [Moles/Vol] 135.0 mmol/L Low 136.0-144.0 [facility] Comment on above: Performed By: #### 1 [id number], [id number], 0395760, [id number] #### [facility] (DEFAULT) [address] [place] [address] 34986 Anion gap [Moles/Vol] 11.9 mmol/L Normal 5.0-19.0 [facility] Comment on above: Performed By: #### 1 [id number], [id number], [id number], [id number] #### [facility] (DEFAULT) [address] [place] [address] 61220 ED Clinical Summaryon 2023 ED Clinical Summary [facility] - Emergency Department [address] [place] [address] ED Clinical Summary PERSON INFORMATION Name: LIA DESAI Age: 22 Years Sex: FEMALE : 2000 MRN: Acct#: Visit Reason: Vomiting - ; NAUSEA, VOMITING, 6 WEEKS Arrival: 04/15/2023 14:48:29 Discharge: 04/15/2023 16:38:00 LOS: 000 01:50 Check In: 04/15/2023 14:48:29 Checkout:04/15/2023 16:38:00 Address: [address] [place] [address] PCP: ROBERT MARRERO PROVIDER INFORMATION Provider Role [...] EDUCATION INFORMATION Instructions: Nausea and Vomiting, Adult, Mutz-zo-Plap Follow-Up: With: Address: When: ROBERT MARRERO [address] [place] [address] Within 3 to 5 days DIAGNOSIS: 1:Nausea/vomiting in Patient Understands: Yes - Patient/family/careg iver verbalizes understanding of instructions given Comment: Normal [facility] ED Patient Summaryon 024 ED Patient Summary [facility] - Emergency Department [address] [place] [address] PATIENT DISCHARGE INSTRUCTIONS Patient Information Name: LIA DESAI Age: 22 Years Date of : 2000 Reason For Visit: Vomiting - ; NAUSEA, VOMITING, 6 WEEKS Arrival Time: 04/15/2023 14:48:29 Primary Care Physician: ROBERT MARRERO Attending Physician: Yassine Maldonado MD Comment: Visit Diagnosis: Diagnoses This Visit Nausea/vomiting in (O21.9) Vomiting - ([id number]) The Pharmacy at [facility] is open Saturday through Saturday from [...] problems; contact the [facility] 29/10 Crisis Hotline -Text 8TONQ sl 270393. If you received any narcotics, sedation, or [...] With: Address: When: ROBERT MARRERO [address] [place] [address] Within 3 to 5 days Medication Information: The exam and treatment you received today in the [facility] Emergency Department were for an urgent problem and are not intended as complete care. It is important for you to follow up with a doctor, nurse practitioner, or physician?s child development assistant for ongoing care. If your symptoms [...] so we can reach you if necessary. [facility] Emergency Department has provided you with a complete list of medications post discharge. Please inform your cotton ball machine tender/provider of your visit and for further instruction [...] other disea (more content not included)... Normal [facility] Extra Greenon 04-15-2023 Tube Collected Yes Invalid Interpretation Code [facility] Comment on above: Performed By: #### 7 [id number], [id number], [id number], [id number] ####[facility] (DEFAULT)[address] [place] [address] ED Clinical Summaryon 2023 ED Clinical Summary [facility] ? Urgent Care [address] [place] [address] Clinical Summary PERSON INFORMATION Name: LIA DESAI Age: 22 Years Sex: FEMALE : 2000 MRN: Acct#: Visit Reason: UC - Nausea; NAUSEA Arrival: 04/12/2023 09:25:14 Discharge: 04/12/2023 09:56:00 LOS: 000 00:31 Check In: 04/12/2023 09:25:14 Checkout: 04/12/2023 09:56:00 Address: [address] [place] [address] PCP: ROBERT MARRERO PROVIDER INFORMATION Provider Role [...] Follow-Up: With: Address: When: ROBERT MARRERO [address] [place] [address] Within 3 to 5 days Comments: Diagnosis is history of nausea vomiting, during . We provided you with medication help with nausea. Keep hydrated. Eat light, over the next 24-48 hours, soups, Jell-O, avoid heavy meals. Follow-up with your own primary care provider, or your OIL FIELD EQUIPMENT MECHANIC SUPERVISOR physician in the next 3-5 days, for reevaluation. Return to the emergency room for worsening symptoms or concerns, worsening abdominal pain, worsening nausea or vomiting, spiking fevers, acute shortness of breath or chest pain, or any questions DIAGNOSIS: 1:Nausea and vomiting during Patient Understands: Yes - Patient/family/careg iver verbalizes understanding of instructions given Comment: Normal [facility] ED Patient Summaryon 024 ED Patient Summary [facility] ? Urgent Care [address] [place] [address] PATIENT DISCHARGE INSTRUCTIONS Patient Information Name: LIA DESAI Age: 22 Years Date of : 2000 Reason For Visit: UC - Nausea; NAUSEA Arrival Time: 04/12/2023 09:25:14 Primary Care Physician: ROBERT MARRERO Attending Physician: Oneil Salomon Comment: Patient Education With: Address: When: ROBERT MARRERO [address] [place] [address] Within 3 to 5 days Comments: Diagnosis is history of nausea vomiting, during . We provided you with medication help with nausea. Keep hydrated. Eat light, over the next 24-48 hours, soups, Jell-O, avoid heavy meals. Follow-up with your own primary care provider, or your OIL FIELD EQUIPMENT MECHANIC SUPERVISOR physician in the next 3-5 days, [...] these instructions at home: Medicines ? Take ekpx-wvz-jozlqeu and prescription medicines only as told by your health care provider. Do not use any prescription, sjdq-ymw-hasorxg, or herbal medicines for morning sickness without [...] to yo (more content not included)... Normal [facility] Urgent Care [facility] 024 Urgent Care Record [facility] ? Urgent Care [address] [place] [address] PATIENT DISCHARGE INSTRUCTIONS Patient Information Name: LIA DESAI Age: 22 Years Date of : 2000 Reason For Visit: UC - Nausea; NAUSEA Arrival Time: 04/12/2023 09:25:14 Primary Care Physician: ROBERT MARRERO Attending Physician: Oneil Salomon Comment: Visit Diagnosis: Diagnoses This Visit Nausea and vomiting during (O21.9) UC - Nausea ([id number]) If you received any narcotics, sedation, or [...] With: Address: When: ROBERT MARRERO [address] [place] [address] Within 3 to 5 days Comments: Diagnosis is history of nausea vomiting, during . We provided you with medication help with nausea. Keep hydrated. Eat light, over the next 24-48 hours, soups, Jell-O, avoid heavy meals. Follow-up with your own primary care provider, or your OIL FIELD EQUIPMENT MECHANIC SUPERVISOR physician in the next 3-5 days, for reevaluation. Return to the emergency room for worsening symptoms or concerns, worsening abdominal pain, worsening nausea or vomiting, spiking fevers, acute shortness of breath or chest pain, or any questions Medication Information: The exam and treatment you received today in the [facility] were for an urgent problem and are not intended as complete care. It is important for you to follow up with a doctor, nurse practitioner, or physician?s child development assistant for ongoing care. If your symptoms [...] so we can reach you if necessary. [facility] has provided you with a complete list of medications post discharge. Please inform your cotton ball machine tender/provider of your visit and for further instruction on these medications. Any specific questions regarding your chronic medications and dosages should be discussed with your primary care physician(s) and/or pharmacist. New Medications Formerly [facility] [address], [address], [place] [id number], [phone] ondansetron (ondansetron 4 mg oral tablet, disintegrating) [...] is not kn (more content not included)... [facility] Coding Summaryon 03-06-2023 Coding Summary HTMLBase 64 BipwroxmPTm1iUr+PGhl YWQ+QJ2LYKJhA97iqUYj pL4oQ9CVEEgNAutaIXNH CJkVGgNrqrFbXC4goPUl ZXJu IC8+GS9uOQDmNpgzvEBl g9K6aWS8B43ihv9cXMyq vRC1QKGxSwVkuszsm9yy kHl3ZRfcQvfbScQp ZZHfvU06CHV8oD58Bi02 uWIceUFif0qgjAv6KpQu HMXrZPK6fHdqVIhes9Mq KTTqH93diGJyx2O6 IGNvbGxhcHNlOyBlbXB0 sZ3fBFxxxhccm9emfbzh Fnc7he58jDXwn1H5yOE2 Z6WhifP9NPNmeQHg BzslwWLOnN7ekpiig6af zphoBiEnGEUmSIe6VJn1 COXntLsaLgTxEK97ECO8 LSHjgnLzB8PtTNHj yFayJiM9p1K6Aa5AU7PH SjxyR3WEMCFPSLougXI+ LN89ve46A8LfYyakAgb7 QZCyUYK5kON6gJ6a SIMhTFvna2F2yWU3W1Uy wnAkif4op3jvVMRrKIru T49yhJGuq0L6RMAirZX3 WRUtlJcpYxAlkM37 Oyc+KJMpwQsye4QyZact j0qrr3dbbNb6BjqfCFAw tgExdNvqZJH8o1CuYz4n RTZhqLG9rYF6nQ6n GiSsOqN6BJmtJ660YaYh jNBlCqmiZ61yN7FplQM+ RXFdQru6AYVuxFviBS1q X8MlKCAbdqcwoXOz gGeoAB8hODQmgcywUQSb eS3dLMJvK8v4WhStLrN0 HNpnK1KiRHJpguhtLn76 vD0bFxYvWjO5LTnw P1SawtO7CKMbxEDiUFsu EYS6R64cw7G2SCGeWDNo MWY0uOG6bG5sbBkphfbw bGVmdDsgdmVydGlj YMreLZfmT339DSEgkZwv PkNvZGluZyBEYXRlOiAg MTEvMjkvMjAyMzwvdGQ+ ORKpBKC3zPnqEHId uFDhMKfwZk2joPvjvFyr LQ3eAZXzuedeANCafG5s WKSimPLnnMxmSS9sUPMe zjtrl735NlGjBZX2 WFHptQLaQ2JcbK9hZjMy SROcGVHlO6DidALwTLaj B487IRkqSgW5JAVaikDn Z1ZfJDSvxYvoDrO9 p5B6Fg0Mq0KfxiliM0Cz tCBdCnRgHezcJWc2D5Az PjwvdHI+SB50MXQbEH00 AXy9XFF0mOraOUmf TXBdD8VojV7bEmPgJIXj ZGRkOyc+PHRhYmxlIHdp ZHRoPScxMDAlJyBzdHls GS3xUp8fWUPyVNPb pIafsJRmUrJac8mvYQOa ODzxCE8ixQysG6WrmTJ0 PCFnm7x5Uf41P48bV9Xe dXA+TGSmqQJ1eTZ3 vV9nYqTuVaN3JBlzK342 KyUvrILwEdnhf9lsl8kh tFc8EjJ2AALpwaGvdXqg XKO4r6FxLr71R18v IHdpZHRoPSIxNSUiIHZh wQsgaf1snX5hTu5+PGNv zKT0pTU7eZ4fKtUkCfX9 BBlmK750MvPpnVCu Ihmkr0qyk1fgfFm4IlXt PYOspdIdpTnnXWM2h4Rj Ba93P3BreIvia5EnBdj4 oh01dNTik4Z7xWJ4 G8NrSLYqmzntoSUkbRti GS0uCJRjnyaeIZZyhL6z NHWeR6h9AoKhJhW8YYes P6UaaoJ3EGBghEIq BFWtmIUHeN1yznflk7oy kivuKpYtFNLlLYn8BCw2 EYBjmFemHkIjURO0JtK9 CIF3xCGloP8tlZdz spgoaH3iEsz+FRQ1wAQj uUKTFQ8sLilrxFU+PHRk CPS6xItsKSjhQRFsxD0w FMZyF4u4MqWpOdI7 JDohT8RgabI8IWFxqMVg SSYvxTZTfM7bsnesp0rq zgpzGeKdWHQdMKt8ULn7 LWFsaWduOiBsZWZ0 XeW6ZCS1dAWwbY9udHgg zziomZ3qXgm+QmlydGgg SGP7QYx3V3GiMma5ONJv mDfkPP3ybVFfHUrx Tg9qvSgvxQqoAN9hHQJw wszqa424YyQjm0ywTYOj gVKtHPrjXNQ9V60bn3S7 RORhBKDmTQG4aRH9 oX6wzAgukuaaqCZwgZhs olBfxTzqXKirTFjxE600 BSBuuBnwMdKrSTu8X9Xi Rui0IVJyvBksGY1x hDEwDSqgZz1mfDmslGjo KO1gRBVqfvgec070YqXg j9elRNDjmPZpPNgfTGJ9 A76mw0B1VPHzSZJs KCG9aWF5eV6hhDdhalaf bGVmdDsgdmVydGljYWwt HFgcK247NNCcfOtsMoEf qVm6A5LwPap2DFZc eYhyTD4mbFGuUAwdKu6l lXvahIcnLU3eRKZhqhef s021WuXxo7bhBMLhhVYr XMrrBUW8Z53qq6T4 EOFdPMObZCO4vMF1fQ0y bGlnbjogbGVmdDsgdmVy xVvqWWcbEHukK699IDUr cDsnPlBhdGllbnQg WEchXNi1I5JxZpimoIN+ SZ19UTXgEA56mPBxuFXy e6ftpCo0VxKqZPVzWTO5 yPctPWdoe0EcAJOs F45bfVUcc4F7FAMkkSln wQBgUwUcrTB3mA4yBCcn bupmt5krnppeMwoua3vw tt75xR29T05uFFhz ZHRoPSIzMCUiIHZhbGln js4ixO5eBl5+PGNvbCB3 iKC0mU9hVLThKeZ0KIqw I638PxBhnDNwPfhr k4pti3azvEf9YaJ0RZSl zuPheWrhWMX2c5PdDg26 L79uUMbuCKBiYSGaRANv FIQmzUomcp2lqK0x Ii8+PIBmqYN0aVU4qN4u MdEaWbD3HHyaV762YyJo iSIcIbooW57qZ2WpaIZ+ XHRbCgv2LURxjVaj EO2scHWlHCwxFr7sNTW7 CkZfAuAlDSmhL0IrHFQl refchoygrAV5UATcHAIz sE78Fh1tjJcbDIMe tHUKdZ1rdxopm2brslpm ToYqOHKiWYj2KZn3VEHf kSktRmWpKMC7GgG6WKY0 cIDguH4dyWaxtakc eP8lD3QjDLJkrhmgYe58 aG3oJqKnSjT0ZErgTyx+ K3kODgDTCAsnZ7hUWFLX NLhONE5ADPqcxNY+ ALDoYNL6eJyjDZrwJRMf yU3fHLQhB3p4PwLuCeW6 COswJ3OqJULywoojMq70 tA6kLzIpApQ8MJfv G1KjexA8RTXugTEkCUnu RKS5N31bm2Z1RVAgKBYo EJZ2fGW0gN2frDccmnbx bGVmdDsgdmVydGlj ICadQCbmV938MXVqiRge NeX3OvCrTfFgXYM4L8Jf Nzv5ZYVvwBlaIL1vkMHh KYevLp9qtTuscDsg MF7eWKFylvanCYIboH9j RQKklSWvmIlpJO2tZJAn rhspv506XxSuWGN0VJLd dBEpX6ElxV1cTqNy TLMjNCEmQ0XedTVfYZdt Q296BSlzZjC3WHElxdDj S4UvFCVxgSsoGuR4h6T2 Xh9bOHZZTAJrrjxa dGQ+TTNgIOZ7lGfwOZia PNCuzF5lSXTcZ4s9SzOj BcX0TBrzP2ElJWIapfzz Gi48kP6qInIaLrS2 OForU4VusmA3TOWmdCFv LNsfJPJ7X67dd2B6ZDOz CMQsFLH8eZR4nN0vlLnw bjogbGVmdDsgdmVy oQahFUkqODkoS183OHYp cDsnPkZFTUFMRTwvdGQ+ WJOkMJX9iIxkBJldRWHj dS1rSPHpD2i2ZnJg JqR8MDfxC6CcABPcyrnr Qs61zS0vDlYzYfK0TEkk D6PpbiP2FFEfzLCvZTny IHO6P43oc0W7MPSp FZLyGGZ4fWB8pV9syGdw bjogbGVmdDsgdmVydGlj OOweHKmzT753MTVrqCqb GtSyMNSmVF0csYsn dGQ+HK94mm07H9SaOqjl Jfd8EEIdGCO0pFM4hV4p HBYmSLdlh2G6eXU2M4Kz rkQzwy5bm2qhODZj NLdwA51onAQyk6Y1TSOu wGS1XKBsdNjhFdPicY61 Oyc+AOMmzFsfs5ZzKkdm t1can0rxtAa5WwTh ZETcqkCsyFehYVD2p5Su Kz23S47jLHrfQXGpTVBb KCPeTAHekHtwut3ywA3h Ii8+WZYfcPF7oDY2 dT4kXmRbOkB4ZZlgK330 WiIkeTZeIkgdu3vlr1wm nEr8SiThWFMpmoJflCxr GFW9f3VaAe93U0Iv cQeeb8UiOgf1vt08bWAe t8D3yRE4A2JfSMUxdgpf uQYawVhvKF4aMKIjmrhg GAJvyZ7tCPLcO7b5 EoScZoG1ZMxmH6BehcU6 UYYwyHHiUQZkpWXZqA0h quony3vbnrauFjBrXGSq WQs2LJn9NGTcqVhm RwPxDRZ7BaR2NGS8dQDk xU4gbOkjzsztvC0fVaw+ CGo5d4tunPBvWC5yeBY7 FN37SW26sCAsr2S5 oNP1S8CfGGLkgjyqbkau bRQ0VMQqUEVjfK46Ow4t iXsoRy6zGMQlAHT3LBVp pULlO8XuyC3uFrZg FBFtOCSnS5KraAAoZJny F957RPwwNoR0UWVzwlKu T8TtNWYrhJnnDjJ6f2V1 Mo0RCF45FY36BW25 rXFil6Y4tTR3K1RrSCQj rbwxfwwttRY9UUGiQYJt rF34Yd7gxHobYg7bBHTe BJM9EMWctFCsL8Eh kC6dLrAtMTAvOCZvY9St cQVjFYauY637FXnvXhX8 BWHoyiHfO2YzWEVlpMvp XgY6x4Q3Vb5PKf75 FU52UP19zYGiv6W7dMY1 O5FtEYUfbjtcboffvKG0 VXLsSJCnqM59El6bcMhm Hh5pYHLyEQW2IXUe mJUnO2CncQ8nErPnTASj MLNlQ7WmgIJiABakC685 HXmrMaT2EMYfolMeY4Pe NXVlsDgiIkX8t7V0 Bn1LDSstxzr3R7SrQytw dHI+XK44RMOgUD50xEZl tZWbz9ihvZv0MaKsIKUd UWQ3oTsxFOayn3No ZXI (more content not included)... [facility] Coding Summaryon 03-05-2023 Coding Summary HTMLBase 64 HnuschxvLHu5aEw+PGhl YWQ+SM2KHRRzV05bgPOe dU9pQ3HQRCmXFsofPBNH LAhEMkItwxQhLK2bhGUp ZXJu IC8+VL9wYHLuCfqscTCy g4A6uSE9Y77ayj4iDLyq eAK3BPNvPtYkfgoen2kp qWe2HWotMgwqNuAw OJCcyM69MST9vU71Di64 cXQflZFbj5rtnAt6JxXs DYSpUHN0yEysNDhrt5Ec IREbB45hhMLfn5L9 IGNvbGxhcHNlOyBlbXB0 cS2yZBcecpsra8kzuhdl Ydv5fz52ePWgz3G7eLK6 V6TdwoF3KSZwzEFh RkwmyIQWaV0tewqpx3sd asfiDiFvUUBfOBl4JHu1 ITUctYieLpLqYP19OYH5 QDWxsmJvG5WcFGGf bMepFhX8w7D2Ui5DE3BN QiqzV3AFKPKBBBgayBM+ HH68zs89J1RiXfinTix9 RFBcCPE0sVU5cR9f RWKxFDdst1N6kJQ1C2Ku dkCohh7ul2sxMZCwAVzo P86plINjk0W7CHSipNV4 EPNzfDrxQoAroD08 Oyc+ISWbaCmkp8UiVmlb s3xax2liaVy9HbhlGZJd huWulHqkLQA1y4YyOv4f QZDaxPW6oTV0dI6t MdVrLcJ8JGqbM132SjYx dJXkTjfiG25kB7JiuBU+ COHqJxr7LIYvjUnrGE3s V9KfCWWhijiopNCf uUqtEP8bKJKsskmzFHVy rQ2bZCIzV3r3JhGpFkD0 BBxrN5HbQKJbkywgCg33 iR2eMvCdCoF5HXye O2IeyhL1OCRdfWRyUSnp EMI6O67qh4S2AFJvWXGt WRC1sHO2kL8wqIpysglm bGVmdDsgdmVydGlj MDjeILszZ737WQNzsGcb PkNvZGluZyBEYXRlOiAg MTEvMjgvMjAyMzwvdGQ+ IVQtWCM5zKlvTDMm uFIvNVdxJj1aqPamxHko MT0iJHHuukrzWFRshC6c CGBxoMZkkXvoJR4uAQWn wsxlj867RzRyQNW7 GIPwqNZqZ4QcfG5tFkDe XTCiPYDfF3MgqZZsQCzb K977XNipGgE2HNMnvhTs Z2HsCSRvhKemYpM0 y1F3Mt9Vq9XejxfzN4Ba eNCbNiUkMxolAOw7K2Bs PjwvdHI+YN91RIHaGH05 MQm8PXH3uIvzZFlv SNAqX5YrvC1iElJjCYHm ZGRkOyc+PHRhYmxlIHdp ZHRoPScxMDAlJyBzdHls CL0kIa2dOJQiGOQm tVytmLVkFdQwj8rfLWSz JQlqQP8ibTvwD5BjbDK2 VGErg0s8Xc25M99aA5Be dXA+VTDvjCF1yOI1 rD8qMqCeQoE9QZhgJ272 OmXzhEMxJyxwp7nkf7il hGr2IvM4ASJpgpNyoRib YCW7c2NmHx28C78l IHdpZHRoPSIxNSUiIHZh nGmnvb1wwP8oDm8+PGNv mJN9xUT8iE0cFvJiXmI8 ITduI141SaXbnFPi Azuxk5lnl3aotKm9TbFe KFBwjeMimKcjTNG9w4Ll Mx09X2RwwQvua5PqHgw2 wo20mALwe5Y3uAH6 Z0GjMDJebkojxZKelSkl EO9mYUCmrwvlEHLazK9k TIIjI0x8ZhSuKsK2EZuy U0DdqwD3AUFaaODo WKJkaTYHjX7dzyrgk7al jthsXrLfHCYbOSy5EDs8 LXXhwLcoJyJtYOR4JgI4 GBN6jSImrU4iaQbr nferdE8hKyg+GYV0iAVi jJUZRX0zIpckiIB+PHRk BHJ9xPplEWdyZCWgiW6i FTWfK6v0WpViFcZ9 ZMopD8NrraO8RJAwySZg HNNfdOOWiT5gilyrb7en qbguQvDnZOHdUKn7IGu5 LWFsaWduOiBsZWZ0 OdH6IDW8dQDulG5fjVmz leryoL1gKvg+QmlydGgg FOX4BAs6Q9WhEqx6ERZp dVkwPV2wjARfKWgn Pb6keWheyQokWY2oDTPe lkygj284SpTie4bnTJIk aARtGThfGBB5V42cn9G8 YWUvACQhOXU3nRR8 lH5rlCcrkyfhpYGugJqc jaWrfMgpTUggGSoiH510 SVAplVpcDtAfBBh3S0Ow Njb1BCCvqYavDD8h gLYyADnwMe5fkChxuLjn CD4zZJKsbavrx220CgNy e6apDGPfwGKyXUemKGM9 H99ij4W4HEAhAQYr VZE4vKA8jU0oxYuausez bGVmdDsgdmVydGljYWwt FVkyE325HDAkhTkyHfLs zRn6X0GvCbk7YZEo jRewHO4haSUlIImrIh6j rGkoaXclNA4hUPKhztlx l503VfYoc6qiGQTegEVn HNowKBY6Y41ka3G1 CMPfHYPkPXA4vVA8mN3o bGlnbjogbGVmdDsgdmVy gOaoVRayXWjnQ500QKKr cDsnPlBhdGllbnQg DSplVGv6J7QrEqyayWX+ GJ93GEFcEO61rOAjjCDf o5lqnPp4HyHdPSFeVTL1 ySrsIKvhf9SkLVPh K92mwDAfc0H1PFGraYcp tTExFjFvvTU3cQ7hVHkh ufbso1wiopznWxwhw4ac tp42bB23O92zIPgx ZHRoPSIzMCUiIHZhbGln nd5uiO9pXb4+PGNvbCB3 oTN7nU7rZDKpDuV3UDeg D190VbBnfKYoIvfo l1fqi4fqiGn6RbT4ZCHf oiMjoVmmPQG1k6NjHl27 D74kEAfdVXNqMIBqAUFn SJYvkMmfaj5rdN4m Ii8+UEYwoUK8fTF8hU1y YdDoScC5KNvqQ193KfCf wEVaZnthF69fA8SaaAA+ KCHjVpu0RSRhfFdv IV3bpUWyWNojCm7fNNO9 ToBgVfCxHEmiA0WwFHVz crjvgoxuyZY6RRPwDOWc rJ34Sq0xiZesMBKp yGRYpL5ygeuzr7ucxnqg HeIoEUIbAMu1UOx6HJXl bIiaWtJhHGR2GfZ3TPV4 mTJwzU6kkJrvcblz yD4iE1RaTMFrbehyWt44 gK8fJoJeSuX9YXulRvl+ Z7fVBxUPJLxxI1pKSCZO DZnEPW0YLSbzbUP+ VCKyAIB0qFetAIceYVIl lS0gZVSbV3v4UwEyWhW8 SGsbY5BjTUYldgtfZz74 fM5wBcEfTeY8DAmq B6KhagA4XOCerEJePLkm DLP0Y97pr9H2HBVwBOGq AMT8kUC1vD8alBnqvuhm bGVmdDsgdmVydGlj MKdkZFfuX463QYAtiWtt NaU6BbOuBxUnPZM4X8Rt Zpe0FANzjFmfEY0rkUBo DGbuOj7nwUccvXea QM1lXMHlzvouCSLhdF8p XOMmiYPckCtqBD2aTISt oemem746IpVeGHE0ORHa cMFeV3RbmZ6bShJh ZUYjYPOkY1UhvSEkTXdv I592FKreBjS0MPUdenPr G7ViFABrrTczMiL7t6E8 Rn2rGRCDEDLuyejw dGQ+BHIeSDB1yOedKDxg AUHwoO5zPNBxU0x9RgTi OmU6ACftS2LuVRSovvhl Mr53pW3bUbNnZxR7 JWecX7DdqyC5CAOgyXAy JFgtEEH6A06zc4R1TCMs BQChHJL4fOM3oG7rrIkj bjogbGVmdDsgdmVy aNomDBltDGtfE135WWIp cDsnPkZFTUFMRTwvdGQ+ EBKjSRL1tOfuDPmfMJBy vX0pTNHfN9z2JaKb PqJ0OBzfM2PrLZUiefxf Gw45fJ1bNtYrNzA3MBzk W4DdxwC5LKCkmYJpUKfq JCD2O21co2P5DXMk GYZcEQR5hAR1tD5ykSzr bjogbGVmdDsgdmVydGlj KNsfZOtpD111PMKusQpm Qg6CUI76YW03C1Lb PjwvdGFibGU+PHRhYmxl IHdpZHRoPScxMDAlJyBz lPatRC2hIe4iWJSqFOVv hUdpfIYsIxMhx5it DJBzTZlfFG1vxWblG0Oc yHH6ULAzh2m3Gc88S21u F5UogDC+IVOerHJ4nIX5 yY9yReXvJrM6WPse S052TwYzkDJuXypfl5wk c3kxpWg8LoJdLMRtppKc cLseHAA9u5NhCx72G22s IHdpZHRoPSIyMCUi GWXagDvpao0oqZ1qMk0+ MZCzxVD0nED2nY6bYcNd XhS5FSbhI865OvJusVZf TeyyV54oL7PysCU+ HHUxCut3FOHvqBkrGX5x yRLyXHvoEy0jGAR8FtXx FjByTDtzE5VyFTHsohrh mftbzGX5WSYiHYOb kB59Wc4elPvcYp5aOXRe FFF1WNTuyARcT1WazZ8n CwEwCKZrZAGsU3RkpTRl PHkdT037XNhqMxK0 PICmlpEmW2BjYGMsnVbh GlC0b9S8Eg0PeMvczSHt RR7oSqEbWLd5R4LlGld1 JXYyyQohGL4hyNPv YYhxWq1umNbhsDohKD1o WGKiweyme386VeUnz6ei ECOgwNFsMQvbNCX7E75t i4Q1DVMjGUXcVZK3 wCA7lK7uuDrshmbviPOu dDsgdmVydGljYWwtYWxp W767CGDgpEfbHzNKRxx5 Q0UyXte5FYWhkHvl XZ2xoQPzJLxnKl2jwGob lPpfNE1rQJCwsgkbu208 CkUcw9ijTYLqeJXsICxq UQP4Q41eu5L4CJVq JHGjAMS8uLA0kR9jbWkr bjogbGVmdDsgdmVydGlj INsgEZzeA794MMEucTdr Ku1GQcb9G3LhKno7 QORdqAhmOJ2xeKFoFCxv Wf6qdFqguIljSI2rPFSf rkkfk639EfHlk1laIWDi gMFjRSzqRVR9N86j g5U9WGVgLSMnXFN2cJD8 cD5vaHjpybvmnOZvyShz lzEpeYxdRRgyRDgwI463 IHRvcDsnPlBheWVy OjwvdGQ+LG53rv74P4Tj KkdfQyg4ZEBwYPC3uNS7 rR7mIIPsEBqhc6G2dTO0 P7WjhiZvir9cy3dp YXB (more content not included)... Normal [facility] C Throaton 03-03-2023 C Throat Ordered by Radha. Normal throat jonny isolated No pathogens isolated [facility] Comment on above: Performed By: #### 6 [id number], [id number], [id number] ####[facility] (DEFAULT)[address] [place] [address] .QC SARS-CoV-2 (COVID-19)/Fl u/RSV (GeneXpert)on 03-01-2023 Internal Control Pass [facility] Comment on above: Order Comment: Order ed by Radha. [[email or web address]] Performed By: #### 6 [id number] #### [facility] (DEFAULT) [address] [place] [id number] COVID/Flu/RSV (GeneXpert)on 03-01-2023 Flu A (GXpert COVFLURSV) Negative Normal Negative [facility] Comment on above: Performed By: #### 6 [id number] #### [facility] (DEFAULT) [address] [place] [address] Flu B (GXpert COVFLURSV) Negative Normal Negative [facility] Comment on above: Performed By: #### 6 [id number], [id number] #### [facility] (DEFAULT) [address] [place] [address]852 RSV (GXpert COVFLURSV) Negative Normal Negative [facility] Comment on above: Performed By: #### 6 [id number], [id number], [id number], [id number] #### [facility] (DEFAULT) [address] [place] [address] SARS-CoV-2 (COVID-19) RNA MILY+probe Ql (Unsp spec) Negative Normal Negative [facility] Comment on above: Result Comment: Perf ormed by PCR methodology. Performed By: #### 6 [id number], [id number], [id number], [id number] #### [facility] (DEFAULT) [address] [place] [address] ED Clinical Summaryon 2022 ED Clinical Summary [facility] - Emergency Department [address] [place] [address] ED Clinical Summary PERSON INFORMATION Name: LIA DESAI Age: 22 Years Sex: FEMALE : 2000 MRN: Acct#: Visit Reason: Cough; Throat pain; COUGH, SORE THROAT Arrival: 03/01/2023 14:12:36 Discharge: 03/01/2023 16:04:00 LOS: 000 01:52 Check In: 03/01/2023 14:12:36 Checkout:03/01/2023 16:04:00 Address: [address] [place] [address] PCP: Provider, Unlisted PROVIDER INFORMATION Provider Role Assigned Unassigned Soniya Strickland TANK WASHER Nurse 03/01/2023 14:14:28 Tom Smith DO ED [...] verbalizes understanding of instructions given Comment: Normal [facility] ED Note - Physicianon 11-24- 2023 ED [...] Resolved Disease caused by 2019 novel coronavirus ([id number]): Onset on 11/23/2020 at 20 years. Resolved. Comments: 11/23/2020 CDT 16:07 CDT - SYSTEM Problem added by Rule (IC_COVID19_AUTO_PRO BLEM) following 2019 Novel Coronavirus (CoVID-19), MILY L from Nasopharyngeal Swab collected on 22-NOV-2020 16:44:00 EDT tested positive for COVID-19. no history (438921388): Resolved. Contact dermatitis (57668408): Resolved. Pharyngitis (1045464853): Resolved. Cough (38870243): Resolved.. Surgical history: Tonsillectomy and adenoidectomy (942969480).. Family history: No family history items have [...] any worsenin (more content not included)... Normal [facility] ED Patient Summaryon 023 ED Patient Summary [facility] - Emergency Department [address] [place], [place] [id number] PATIENT DISCHARGE INSTRUCTIONS Patient Information Name: LIA DESAI Age: 22 Years Date of : 2000 Reason For Visit: Cough; Throat pain; COUGH, SORE THROAT Arrival Time: 03/01/2023 14:12:36 Primary Care Physician: Provider, Unlisted Attending Physician: Tom Smith DO Comment: Visit Diagnosis: Diagnoses This Visit Asthmatic bronchitis (J45.909) Cough ([id number]) Throat pain (523116270) The Pharmacy at [facility] is open Saturday through Saturday from [...] alcohol and/or drug addiction problems; contact the [facility] 29/10 Crisis Hotline -Text 4HGAU vn 748063. If you received any narcotics, sedation, or [...] and treatment you received today in the [facility] Emergency Department were for an urgent problem and are not intended as complete care. It is important for you to follow up with a doctor, nurse practitioner, or physician?s child development assistant for ongoing care. If your symptoms [...] so we can reach you if necessary. [facility] Emergency Department has provided you with a complete list of medications post discharge. Please inform your cotton ball machine tender/provider of your visit and for further instruction on these medications. Any specific questions regarding your chronic medications and dosages should be discussed with your primary care physician(s) and/or pharmacist. New Medications [facility] [id number], [address] [place], [place] [id number], [phone] albuterol (Albuterol (Eqv-ProAir HFA) 90 mcg/inh inhalation [...] Adult Acute bronch (more content not included)... [facility] Strep Aon 03-01-2023 Strep procedure control Pass Normal [facility] Comment on above: Performed By: #### 6 [id number], [id number], [id number] #### [facility] (DEFAULT) [address] [place] [address] Streptococcus A Negative Normal Negative [facility] Comment on above: Performed By: #### 6 [id number], [id number], [id number] #### [facility] (DEFAULT) [address] [place] [address] C Throaton 02-28-2023 C Throat Ordered by Discern. Normal throat jonny isolated No pathogens isolated [facility] Comment on above: Performed By: #### 6 [id number], [id number] ####[facility] (DEFAULT)[address] [place] [address] ED Clinical Summaryon 2022 ED Clinical Summary [facility] ? Urgent Care [address] [place] [address] Clinical Summary PERSON INFORMATION Name: LIA DSEAI Age: 22 Years Sex: FEMALE : 2000 MRN: Acct#: Visit Reason: UC - Sore Throat; SORE THROAT, CONGESTION, BODY ACHES Arrival: 02/26/2023 09:55:01 Discharge: 02/26/2023 11:28:00 LOS: 000 01:33 Check In: 02/26/2023 09:55:01 Checkout: 02/26/2023 11:28:00 Address: [address] [place] [address] PCP: PROVIDER INFORMATION Provider Role Assigned Unassigned Errol Ortega ED PA 02/26/2023 09:58:25 Birdie James TANK WASHER Nurse 02/26/2023 10:17:32 VITALS INFORMATION Vital Sign [...] verbalizes understanding of instructions given Comment: Normal [facility] ED Patient Summaryon 023 ED Patient Summary [facility] ? Urgent Care [address] [place] [address] PATIENT DISCHARGE INSTRUCTIONS Patient Information Name: LIA [...] to help relieve symptoms, such as: ? Vquc-tbr-tmwujyz cold medicines. ? Cough suppressants. Coughing is [...] other clear broths. General instructions ? Take gydw-owd-tiarkyc and prescription medicines only as told by [...] infection to other (more content not included)... [facility] POCT Rapid CoV-2 (COVID-19) Antigen/ Flu A&Bon 02-26-2023 Influenza A POCT Negative Normal [facility] Comment on above: Performed By: #### 1 [id number] ####[facility] (DEFAULT)[address] [place] [address] Influenza B POCT Negative Normal Negative [facility] Comment on above: Performed By: #### 8 [id number] ####[facility] (DEFAULT)[address] [place] [address] SARS-CoV-2 (COVID-19) RNA MILY+probe Ql (Unsp spec) Not detected [facility] Comment on above: Performed By: #### 8 [id number] ####[facility] (DEFAULT)[address] [place] [address] Strep Aon 02-26-2023 Strep procedure control Pass [facility] Comment on above: Performed By: #### 6 [id number] ####[facility] (DEFAULT)[address] [place] [address] Streptococcus A Negative Normal Negative [facility] Comment on above: Performed By: #### 6 [id number] ####[facility] (DEFAULT)[address] [place] [address] Urgent Care Note- Provideron 02-26-2023 Urgent Care [...] Resolved Disease caused by 2019 novel coronavirus ([id number]): Onset on 11/23/2020 at 20 years. Resolved. Comments: 11/23/2020 CDT 16:07 CDT - SYSTEM Problem added by Rule (IC_COVID19_AUTO_PRO BLEM) following 2019 Novel Coronavirus (CoVID-19), MILY L from Nasopharyngeal Swab collected on 22-NOV-2020 16:44:00 EDT tested positive for COVID-19. no history (859664575): Resolved. Contact dermatitis (23477197): Resolved. Pharyngitis (3345877914): Resolved. Cough (32625348): Resolved.. Surgical history: Tonsillectomy and adenoidectomy (930471722).. Family history: No family history items have [...] collect, Neha (more content not included)... Normal [facility] Urgent Care [place] 023 Urgent Care Record [facility] ? Urgent Care [address] [place] [address] PATIENT DISCHARGE INSTRUCTIONS Patient Information Name: LIA DESAI Age: 22 Years Date of : 2000 Reason For Visit: UC - Sore Throat; SORE THROAT, CONGESTION, BODY ACHES Arrival Time: 02/26/2023 09:55:01 Primary Care Physician: Attending Physician: Errol Ortega Comment: Visit Diagnosis: Diagnoses This Visit Myalgia (M79.10) Other viral agents as the cause of diseases classified elsewhere (B97.89) UC - Sore Throat ([id number]) Viral sore throat (J02.8) Viral upper respiratory [...] and treatment you received today in the [facility] Urgent Care were for an urgent problem and are not intended as complete care. It is important for you to follow up with a doctor, nurse practitioner, or physician?s child development assistant for ongoing care. If your symptoms [...] so we can reach you if necessary. [facility] Urgent Care has provided you with a complete list of medications post discharge. Please inform your cotton ball machine tender/provider of your visit and for further instruction on these medications. Any specific questions regarding your chronic medications and dosages should be discussed with your primary care physician(s) and/or pharmacist. New Medications [facility] [address], [address] [place], [place] [id number], [phone] dextromethorphan/gua ifenesin/pseudoephed rine (Capmist DM 15 mg-400 [...] own, without (more content not included)... Normal [facility] Coding Summaryon 02-22-2023 Coding Summary HTMLBase 64 LolnaewqDNp6rVt+PGhl YWQ+GL1VXZQhF91gaNOx eD0hN0GWIZcPDqrkRXFB ICsRPkUcjjOlSQ8qlIJm ZXJu IC8+CY7oUZAlFcsdgKMs c6K2jUI9V49yls9gVDvz mFX7XLWfOpRmrqksd5vf iKo8IBxjRvtmDbQq UURtsB44BCR8hY39Kp19 pOEomZXjm5avfRu8UdUa EDBoSYP1fNewQVnxb3Tv QVDgA33prZHak9K4 IGNvbGxhcHNlOyBlbXB0 jS5rDUcudvdno4kwvfot Fcj9js05fMHrz9M2vNK4 P0QdlaX1UZLloEEw RttuxTWDzE7cdauhl8ws istgBnUtKSXeTWh8ABq2 HKOhnBegQuYcSB37HYU1 LGLuagBrD8EbVVUl nUyoScE7r1L8Hi9HX7IS LzyjC2EAENSIATkstDF+ OG66gr23M2YjWxxcKdl6 ABDiHZI6wMA3qE9y DNIzVNhyl4J3pTR2N2Ax fkSnjn9qx5lsZYSiMYli A49fzIHtr8Z2DMKjySA9 ZCJqvFrkToOvtG11 Oyc+RUZvySkby2GhLcne x6kcp4phzWw0IrblBACd zgZcfRfpPJG9r4YiSe9j XPFhcYC0jAD8sO8q TfUcTmM4EImhF119KjKx wBUrCalpA03fG6QguRA+ EBCzEkb9XLIldCjpQI2b T5WaSKKwfxrmyKZz mOfwDV2jXIOxkvtfRVEf bX9cXKBuT2s4KfHdKsG8 ZGehH2UqRLXkwisjCa42 kG8hFxBjJpL3HYsf H4RgqtP4STGupXEgLFwa OIL9M94vh7D0HKEhHCSn MOA5mKZ9hB5ehMhemkki bGVmdDsgdmVydGlj NNfgDCuiA619DLCtsFuh PkNvZGluZyBEYXRlOiAg MTEvMTcvMjAyMzwvdGQ+ BBQaQMU2uFhySEAq cENgALueDg9saKlljWyl CP7tBAZubmgqYZCbkN2z EVTthCRkvQupGT7kISQk mciyj405DaTpKYO7 FVUfnRKyE6CjbJ7mYjZi UNXgMVUgF0OriGRqKEiq M609AXowEoX0GFHcrgSr O6KsGXCjuLbeCrG4 b5M8Im0Av9EwqsglE9Kv iBXjGrSjOrxvHKo2G8Vj PjwvdHI+SA28VKBaVE89 OFj5CPX3zMetCXil MPAfD9XqkW8cQwRyOISf ZGRkOyc+PHRhYmxlIHdp ZHRoPScxMDAlJyBzdHls OT7fMq9kNCXuZXRl cXwivPIfEiQyn1rbTCMr KPolUH0adFflZ1TkiXH3 KRUhg0i4Ba32Y93yB2Nl dXA+UJIieKH2oNP4 iC3aGlCgBmM8OUggW804 CbWaqSFsFubew6cdu2vf tKn4SrQ0MXLvmeYwfMqa HED3e6AdQg57W10u IHdpZHRoPSIxNSUiIHZh yVcmsy1nvE7nXt1+PGNv wMU0yEH3dB0uUnRrKlZ9 CDtzG705KaBoeORs Ztyxu2odq8fgqFc8BoYp WYGxgcHtpVlpLBX5k8Wd Dl01R6MhrQgjb8YeWbb3 gz09sSUne5M7uCM3 E0WcEVJriqwaqHAyfOvl UE6jHRKhwgioUFVivE4h DSZsB8x8PxUnUoR9DBwo N3WhfhY3FRKqeEPu CGRkxKXIoF4ttvmhi6qo vgdiOyJqPSZsBXl6DKv2 JGEhuGsoBfBzLDB6HfQ4 FXI3kACjmC3saQju otlfxD5xXex+OBX1oIKl qHYHSZ5mVtkidMC+PHRk UWY5fNpoMFghYBHiyR1a AFWsA7u5BgPdVqR5 CSedF4UrofX4BLGxtVTc FCGgyXBUfG4qstuag2tw tcgfSmCxAZSaTPg3HTr2 LWFsaWduOiBsZWZ0 JeP4VIJ5pNZfoE3zbVnm krkznU1rBhe+QmlydGgg VWV6AIk6R6LpNfd2ZNBm jQchPT1cdQBiRTpr Ns6eyDvjnQoyPO4aOVVv grops187BuSek1ltKNSj uSRsZNqkKBD9X83uc7K4 KPIeVRWiUEU2zIJ8 kN0loUlbeqvvjJIweDaf abVubXdyPWxkNDfaP203 QLPuiXmzLmCcJSo5G9Nb Smy5MFUalMbvJP9f hNMbWBwfDv5deOtbcBvt PN8sUFIvplcdw465PzPj i0xwYAVvuHTqGGlmAPV1 J65ut3S5QUYxGACr USL9sCH4jH8shLaskcew bGVmdDsgdmVydGljYWwt PGgwB541CNWxaPcrOgJg xXv8R9IaXlp8WUOz wXgvFI0kkFGpZUodZc9q rMqonKykVT4xHXJktksl v241CmDsv7ygEGUhvDLe DCfrBCE3J70id6M6 MQUcUVPiDJP3cDK0rK2r bGlnbjogbGVmdDsgdmVy pCqhLIcbKDzcE360FYMw cDsnPlBhdGllbnQg QKbxWIh8L8BcQuhfuYF+ SA66KKPtLB35wABppCCm x0fdgGb2ZqHoDUXgKGC1 hDzrFWius4NiGGVr H11igLFsd0P1OFBizYmy aYYuCnAbeGK6mU5eBEol ezivt6faljgdJrhww8lj mh27bC36R19gKFov ZHRoPSIzMCUiIHZhbGln as3wvQ1cQo7+PGNvbCB3 bVP5sA8bKNHwWwL5NLho R273LvSqeMGaWrkf d7ebd3yibIk6BtG5EVBy upTywYpsILF1b5LkSm55 Z62wNGbnEVRuAPKqWBGn YSRnfAcfuf8jaX2a Ii8+KUPvqVJ3jDB0lC3n FyNwKwN8DXyxW582YiBv tPIuZksuT20hO3RrhGI+ KOQhRrd3VXHdtCix PQ5wbEEjOJlhRf1lKEF9 PrNaLcSuHLocF3MnBDKi aaoigifbkJX9HQDfAFCj cT57Kk1iwVziUHRs kVOOlV2cdxyjx3ozoolr NpXaOSTwRAu6OMq2RWXr cElpZmWmFGU3GfI1AAN6 iFLsyN8owTirxluf uX1jX1HjZUXzvuzoQo82 yD3xUrVgYdL7OYbiGrv+ D7mQFjNDEJnjC8yKSUTD ENnHOI9WKFpvfPW+ ADYsVXT7oNcrVTmxXWRj cM6hKXUgS0g2JnSrAmK2 KCwaT0XaXAUhvpmfSi97 rV2rVoTnZiR0RTtl C7VmdjQ4YNOpoUIsVFoq HMB1H36nh2X3YCZwSQNi RGY9aDH9tM0zaYgbdcec bGVmdDsgdmVydGlj INlyCKloQ199IGDjcDsd WiE6FjHsUqZoPPT6Y9Oy Wem1MLKeoZpeGB6qkNTj TJzfHy0chPdruAju XL5qARCdjyvaXZRolV8m HQZhkGLarYujOZ2uFJWh jklfr658QnMpHNM3DZBe kTOqX0EfhX8sXsIi ACVlAGYzD8UlhYZbBLlx U771DXqdIqF7VXDinlXp F7ZfTKVsiUlnJaK7v3W1 Zq3mPLUVGBRqdbqw dGQ+WQOhSSG7dNcaFAmq VQMctC8jYWCsX3x8ZlQl PeB0HYudG3LyJVOqvkxj Ym07mS1gOjUrBjX2 QMaaA5YfqqL3GHPdeYFm SRqlDCL9I05fq4K0TOYx ZZEsNYR9pJI2gS1elYnt bjogbGVmdDsgdmVy sFbsVYrgPVhbW017SWAx cDsnPkZFTUFMRTwvdGQ+ SWSuVHK5yXhlUDgsRFOa eR3wJYArY2l5GsWs ScU5EPgpU0LkPVGrsoaw Jg48qN0eFqLzFiX6LSnj E0FvreM1QBKdhXJmGIdk FFQ7E73sg9Z1FCDr ONCaANA9mVZ6hN7niIkx bjogbGVmdDsgdmVydGlj EHlkNFagB112IYTfnNjq Ko0GLM87TZ99B9Wv PjwvdGFibGU+PHRhYmxl IHdpZHRoPScxMDAlJyBz gOwrJJ6tBc7wEWAtXFAe uKmfpASbQfKxr9tx ZBRvECrpHS3mrYodR2Uc mKD3QVRqa3r4Mt28G88v L4VuoWE+KHYxcAT9rHP0 wS9kFcDkZpE1VPju G461ZbQacXOhOjkds3ny h1dhmAr5DrTgIZGdzdBi iCbwCTQ1j9SvDj86E59n IHdpZHRoPSIyMCUi ACMkwUzspe2fuY8xWq1+ TGIclPH9mTC9dB0bPoLs HcY9XXzlW585QuNwiOQu JcquE29zG7HehML+ HEDpYtp9ELDsjAthCU9u eJHuOZquPz3bDLW1JhNj JrLcVKxbG8RzLOLdoqwu xqcmkIP6RNYdCYGv hI56Ff2koBmeHc5vZCAc EQC7WTXaqLWsS9BwcK9u KcNaTJLeBMTpS0PjrUCo QJjbI669UZxhHjX8 QHKcmgXrG2WtMIMkpUah EpB7w4U8Xx2GbFdonYSu VC7iUoSiVTa5V6JbEqa8 LCIglLadBM1nkCCw NItlAi9tqBiufFoqKB6x ZMXmhrqrd976ZmZoo0tw OGVoxKCmUCgqWFQ7R48m r2H8QWXrBWAhSWC5 gKH9uD4zvJsncmsylBKv dDsgdmVydGljYWwtYWxp V927UFJguFdjLpRFLwg4 R9TcGcy6XITtePsm WZ1opSTcWJkbYs0icCxc lVcrNK7wDYRyzdkqb920 SyUan1btITQvfYAyADsv ENP8X97tu3Y9AQNc XMZpJUL6oGW6vI3quNoj bjogbGVmdDsgdmVydGlj ZPwbLTdnV842IUVlqTrk Ao9KNmv6P3FlXxj0 DMRvuCocRU3amSSpFYev Uu4tsGprdLczFK0rPCFg fteum405VfRot7gfPTSv oNBrGXivKJA4P51w f2Y0DTDqTQRnQJC0xPR1 pC7jmWeebxbwvZHjdOzr faLirErqBXjxSZsaL365 IHRvcDsnPlBheWVy OjwvdGQ+SX23fp10H5Pr MdawHbr5PPUoGKW6dWH0 tE3uPHKcLVpbo3U2mGS1 Y8LoyhVhst5mh2ha YXB (more content not included)... Normal [facility] ED Clinical Summaryon 2022 ED Clinical Summary [facility] ? Urgent Care [address] [place] [address] Clinical Summary PERSON INFORMATION Name: LIA DESAI Age: 22 Years Sex: FEMALE : 2000 MRN: Acct#: Visit Reason: UC - Wrist/Hand/Finger Pain or Swelling; LT HAND INJURY Arrival: 02/14/2023 17:07:31 Discharge: 02/14/2023 18:05:00 LOS: 000 00:58 Check In: 02/14/2023 17:07:31 Checkout: 02/14/2023 18:05:00 Address: [address] [place] [address] PCP: PROVIDER INFORMATION Provider Role Assigned Unassigned [...] Therapy Follow-Up: With: Address: When: Regla Hernandez [phone] EXT: [phone] Call for family Physician Within 3 to 5 days Comments: Call for help finding primary care provider. Follow-up for reevaluation. Continue with rest ice and elevation using ice 10 minutes out of every hour as needed. Return for any worsening issues or any other problems. With: Address: When: [facility] Comments: [phone] DIAGNOSIS: Contusion of left hand; Left hand pain Patient Understands: Yes - Patient/family/careg iver verbalizes understanding of instructions given Comment: Normal [facility] ED Patient Summaryon 023 ED Patient Summary [facility] ? Urgent Care [address] [place] [address] PATIENT DISCHARGE INSTRUCTIONS Patient Information Name: LIA DESAI Age: 22 Years Date of : 2000 Reason For Visit: UC - Wrist/Hand/Finger Pain or Swelling; LT HAND INJURY Arrival Time: 02/14/2023 17:07:31 Primary Care Physician: Attending Physician: DORA JASSO Comment: Patient Education With: Address: When: Regla Hernandez [phone] EXT: [phone] Call for family Physician Within 3 to 5 days Comments: Call for help finding primary care provider. Follow-up for reevaluation. Continue with rest ice and elevation using ice 10 minutes out of every hour as needed. Return for any worsening issues or any other problems. With: Address: When: [facility] Comments: [phone] Hand Contusion A hand contusion is a [...] elastic wrap to support your hand. ? Fgpq-jcs-cshnrld medicines to control pain. Follow these instructions [...] or lying down. General instructions ? Take uaut-xws-khddikr and prescription medicines only as told by [...] provider. Document Revised: 07/13/2021 Document Reviewed: 07/13/2021 [employer] Patient Education ? 2022 [employer] How to Use Cold Therapy Cold [...] the area (more content not included)... Normal [facility] Urgent Care Note- Provideron 02-14-2023 [...] All Problems (Selected) Anxiety / SNOMED CT 80985101 / Confirmed Acute depression / SNOMED CT 4035574386 / Confirmed Chronic post-traumatic stress disorder (PTSD) / SNOMED CT 882697133 / Confirmed Pharyngitis / SNOMED CT 1599262253 / Confirmed Cough / SNOMED CT 59558400 / Confirmed Objective CONST: -Well-developed well-nourished. -Acute distress: No -Vitals: reviewed. SKIN: -Gross abnormalities: No NECK: -Supple (oorw-hz-wuntn): non-tender. CARD: -Rate and rhythm: Regular RESP: [...] and Plan: Diagnosis: Contusion of left hand ([id number] S60.222A), Left hand pain (VLZ39-DQ M79.642). Orders Orders Patient Care: Brace/Splint ED [...] on: 02/14/2023 18:01 EST] DORA JASSO Normal [facility] Urgent Care Recordon 023 Urgent Care Record [facility] ? Urgent Care [address] [place], [place] [id number] PATIENT DISCHARGE INSTRUCTIONS Patient Information Name: LIA DESAI Age: 22 Years Date of : 2000 Reason For Visit: UC - Wrist/Hand/Finger Pain or Swelling; LT HAND INJURY Arrival Time: 02/14/2023 17:07:31 Primary Care Physician: Attending Physician: DORA JASSO Comment: Visit Diagnosis: Diagnoses This Visit Contusion of left hand (S60.222A) Left hand pain (M79.642) UC - Wrist/Hand/Finger Pain or Swelling ([id number]) If you received any narcotics, sedation, or [...] legal documents With: Address: When: Regla David [phone] EXT: [phone] Call for family Physician Within 3 to 5 days Comments: Call for help finding primary care provider. Follow-up for reevaluation. Continue with rest ice and elevation using ice 10 minutes out of every hour as needed. Return for any worsening issues or any other problems. With: Address: When: [facility] Comments: [phone] Medication Information: The exam and treatment you received today in the [facility] were for an urgent problem and are not intended as complete care. It is important for you to follow up with a doctor, nurse practitioner, or physician?s child development assistant for ongoing care. If your symptoms [...] so we can reach you if necessary. [facility] has provided you with a complete list of medications post discharge. Please inform your cotton ball machine tender/provider of your visit and for further instruction [...] This is (more content not included)... Normal [facility] XR Hand Complete Lefton 11-0 XR Hand Complete Left CLINICAL HISTORY: Left hand pain. Punched wall. TECHNIQUE: 3 views left hand. COMPARISON: 12/15/2019 RESULT: No evidence for acute fracture. No dislocation. Joint spaces appear maintained. Soft tissues unremarkable. IMPRESSION: No acute findings. Final Signed (Electronic Signature): Gavin Mahoney MD 02/14/23 5:54 pm Technologist: KELVIN PATEL [facility] Coding Summaryon 11-27-2022 Coding Summary [employer] 64 LqpnkwsuJWp7wKa+PGhl YWQ+WP0NNYRaG47pfVLp oF8fY1KOBVyKIpnhHGKA AVuNIwGqshLlTI8ecTDz ZXJu IC8+US5kDLYbTmsctFDs t0C0jRX0Z25xed3uFJpf pWV2UFRgXsSxdfmtf7ur hBb4XTdzLnkkRyTc VIYioG31BIU1zX55Fy83 pZHmbQFxn2mdoBq5LiIi WJHlUMK1dXjcZTyqt3Qd AKFnW20vcXVuf7I9 IGNvbGxhcHNlOyBlbXB0 qI6sQClxrpbil5nuzhqy Wdu6ex29qXQib6Z2pOS2 I3VhobH3UZKspEKf ZzyowWMXyN0ezrqyw1hk jhdjOjWyCGLlETk6PNl1 MNThuNuuGgKbBL98PKL8 RRMznrVbY2YkETIb lBvwSdN6q2I3Ob2QZ0LX ObifA6TYTSEKBDvpcGB+ UJ45lx99A5PkTspzNcu0 YLGnAPP6vKC0zB6k MXRwUEgwd7S9mWA3I3Vj ngKtwh0ab2ckDPNlNCtn D60myWZez3Q7TGUlxBF0 YCHubVgtUjDjxY94 Oyc+YREujSkbv1TnCrmx k5tgj8rttFp0XamhELNj qdRxkFewFFW8q4OdOd6e ZAYkiGP2fXJ0sC2q HwVlCyJ7SAppQ720PxMw yGUwPzdkW40fT7JisTK+ RRHhLpd9ZYYxbDilBA7f N7PfXHXzpbkpzBZp ySioRS1jBUImfpluKLBm sQ9fSKOjX3d3FnJtTgM1 UZbiM7LhPUZqtuyiKo72 vC6rLuIbOmU5YVqn A1TituE1JXAadLOnOWyx DZN8O78px2M6BHJiEMAw HZN5jHI9tL2enSqwseir bGVmdDsgdmVydGlj AZxvNRekY880SWKzzSuh PkNvZGluZyBEYXRlOiAg MDgvMjEvMjAyMzwvdGQ+ UULqZXW2tQnuWSVs tAZfTMqgJn1ffPykuNmi RE9tAIUdwdsaGTLgiA5y YAGefTEhrXexMX7xYKYt zxefe975RzGpPJJ1 XGEuvVIuS0TtrN1eNuEt GFKvTMMyV9LjmOLuTGoy V748BKbrFbS1YVWfhpVo C8PcRBGklPyxEdJ6 g8L5Sy2My1FoeicwJ3Zb rWYhHdQyXietHHa2H2Dh PjwvdHI+SW75USDfPV96 HLs8ONY2mWfqIAfm ZKSyQ9RafB5rMzTbTWFt ZGRkOyc+PHRhYmxlIHdp ZHRoPScxMDAlJyBzdHls ZW8nYw9jXYQaFZFm wLijpYAvLoZsm8jlURWf UHddYM1nbThsC7RvpIW7 BZOeg7v6Wk33O05qH0Yy dXA+PIVwzHJ7xGZ9 jC7mXvXsNxZ0CAntO867 YvVmbRDbQygpu9esz0dj bBk1FvT7MMRdkjZgjRye KLH4i6JiSo49B06m IHdpZHRoPSIxNSUiIHZh tQjeiv9avD3aLl0+PGNv tWN4mFY2sY7uYjEwWhM4 KOidE771IpRszSGp Iapvq4loe1pqbNy0PgEc IZCiexJscCohZQT9z3Ug Tw45A2GzeIgik7IlWft6 cg09cPQna2Z1kON4 F2MrCLHgswsxoHQolBdu KK7sEYOerzukCKXiyP1d TRJwW4c5KtHsLmT6GBjs Z5HaerO5VKYlhRSj UVLjmWUPdB9pnmaut4xg rfdiHzFrUPBoEXr8EHb5 MXKxlLexNzJvXSB1XqR6 YKA9xHRjbV3kmKpv hufgzP9uNxl+LKB3vVEs mXJFYL1gIvlqaDR+PHRk WZP1eCdiWZbkNWUwyW8o KJPwI4j1UlHaYjX4 YCjqO1JzgdH8XQPsuUIz IANgqKHWaD4jthpcd6mv uaudMjErWMRjGJn1WEp8 LWFsaWduOiBsZWZ0 MlP9PBQ4tGKvfO0rkXiv yulciZ6eZbb+QmlydGgg NXV1XUf5N5JoIax3SSIb zWvtTX8cwHQaXCua Mh7hfAapoQzeID4lKGSa uwmbm899UbEtd9bqMFVp nFLgEPrbFLQ9A52rq5A3 JFIkQVJrIRS2dVE0 gM0kbGliswxxaEXhzDgo uxSaxJujLVmtVJmvT404 EGUcuDfwRxBbUGu3C1Ti Csa0IITrqDdwHD7k lJHbETriYc7gnGducZlo EV1nGZMqhbdmu133HzHb d3gdWDWhlURoBRpgSRZ7 U52ca4D6BMVxAQKi IRW3tMH8yJ8hnQhiocuu bGVmdDsgdmVydGljYWwt FLrsT952OWBimDvsJqPm uVu2J8PtFch8LTZe hWqgOJ3vwHWfIXvjIo0m fRufwVaxDK8wYLTkxbqr d490XtYhh3kkRBZfzNHy UAghHQM8K83fo2M7 XPGzKOSaMXG1bTQ3aH8e bGlnbjogbGVmdDsgdmVy jHbpPYwyYVclO919MKKg cDsnPlBhdGllbnQg BExaHEm3H5VtVisghKB+ QJ50GJKmJB49sOJicRZv n6rowDm5EtUaESUrGNO2 nIppENafs1JqIRLd F52xsILjq3G9GROwiPep zQJqOdIndIK4kU4tYAki wxznc9sjupuuFindr5lh ux31uL12A57uKNhl ZHRoPSIzMCUiIHZhbGln yu4kyT5fEq2+PGNvbCB3 lOS6uF2zEZBzLqT1HKzk A616NiCclHHxRepp x3ulv2aukVv9XaI7JRVx vyJmtAssAGH7h5NjYk08 N25zUUusRGCtEUCsLCTt YAHqdJttvj2ajB0u Ii8+PIDtlIM3fJP5lK5m AvNhNcC8PHvtO313ArZg bCKtIbdeO57jM6MxdEK+ GAOmHpt7EBBbvPdf VV5xmXWoTKyiYh9pRGM2 RwNtIiQaGGpuJ3GtLVJk mgzpimuppFC2JYEnAZQg pR68Rz8vcGdbKNLn jNNEoH2jgecer9jvdggg ItSrOUUnFTz8KZl0JCFz mZupYaUcPLO3McE5UOV6 jXMupI4kuGrfwuia wP6gN2PjRCVpeikrRo07 cJ2fVrYbMfH6FQtfUwu+ H7yBSuZFTFwmC3rRGBJM OLaBAF1HJHfkxKM+ TKLjJLZ2tYmhQMmpEXTm mY7iBADnB1y9BoJeQlI4 JQxtB8CtIYOwcgiaPh11 zQ3iIjZrElV2NKzv W9MezjP5LGVagVDqBYpm NZA0Y20kc4N2PRKfOZLd BGB9sVZ3oO2sxZvzskfc bGVmdDsgdmVydGlj GHvqXZdwE442BYOciWkz FdS2HuTeRaRkDLS8U2Qn Wha1EUSetBeaLS2lwYBo IDzaJu3teUknnVot QJ7iPWHmcpnsVTInkG0b UTWohAYfrFikFK7yYCWc zpixw367DoKnNVJ1ONFj cZYrG8UgfC3rTdJh ZKFrMLShW5FqxJHqZJae W555HVmlHcH6ICBwpxQx S2JrVEHxhGesTkX3w8B7 Qk6oKCXFTDQqmbyh dGQ+DQPxALZ5eMpeLHei GINuqN4tQNDvG5w8MvRo UjG5YCbdQ3PdZTUdbkyi Gs88fK6jHbCyOaU3 WHuoB3PmoeS9QSHuqKXo SRutVBC1R73zp3J3OCHr TPEyMBR5yWX4oV0twCer bjogbGVmdDsgdmVy tLppCDoxPRqyF221NKAe cDsnPkZFTUFMRTwvdGQ+ SEHoEQZ2oBhgULidTQMt nG7xEUUpK5g2KpDo DwZ2XFclE8XnGHGmaptg Ec80mI7nJqAwDmW0MUpu Y1IcitM9HHPfsEGaBBee HSX3R16ih6P6JXPw OEPgKCP7aDL5eA3hnPxn bjogbGVmdDsgdmVydGlj BCjbURusU839YXSzyFjq IzXfXYVjTM9vsTkm dGQ+LZ14ss79L0ZtBwjc Ilr3AQPiYWE4cNB8sZ5e PDCrETxnk8X3wMU8W0Hi whRloo7qi1ayGMCp GXzgM16skVQte0E6HOXe zVA6OKAziVxxUxZhiR73 Oyc+ATTuoQbtg1ScCngn s4xbd0evqAt0OuAg RAAxfsZptIkvAWK3t5Iy Ki34Q22uZLczHVCgERAb SUDkOGTyeUvquc5olU4j Ii8+LWWjwMU8uQU5 vM8cHlZaIiM0RBirY415 HgKhoUAvGbmkz6grp4hm vSr7QiVyCKOksyMvgUko OFS6s6TvXq26B1Sf xHfjk6TkCwg3og85fRXc a2B1eMI7W9KfJQBzlaan pSEyfUhnBW8sVXSlaoeu KIDusU1pYNUjS7k9 NmCaMtX6CDhiA1UffsW0 XFJlgDVyQTVbbBJFlO2k aywxl7sshkroXoHvPASq JUy8JTk7RFFizDvh KjFiBHL1RtF0JTG6mHYd mT7bsWvlpbnxbU6aYnr+ QSs2b7oncJTvUJ4zrNW4 YP21CS54oCZpo8Z5 xUW1O8LgKVKbmfawceqp wCT0OCQzBORftX77Vq4i lEtgYq7zZGCrBGK8TKZw sQWfP2JsbG5tAoDa DDJqYPQvF1PjzRDfLGom W439RLgtZiE7GPJmetFv R3LqXHTwnDamRyW5h5N1 Bq4TXF84LF05DD98 fHPhe7Z7vGT5R1HfKBYg rxxvmzwzcHQ3ZDVcMLOs jB24Ah2zzTtqHl5pOOVg OGR0MNXtaXXuO8Rk vO5yWuHuDKHeCMPbT5Ru tPLoDRhpE317DQymNyH7 GXRojcQaY0KjCFGroGfd QuM5a5J9Pm5VEy64 TL89WU79fKIkw8L7aHJ4 Q0AlACWschldksmtaHI4 TZVgKSDcfC51Dh5baYqm Kg3xHLNuSHK7ZMQo qSGyW9DccH2iIkQcRHDu DPCvI0MrvYBmRGmrZ430 DFjlRcK6HRAibhXcW5Qs UWNzsMvdAeO6v6R2 Hm1HXDfyjxx3I8IbKdfw dHI+BF21OOBjEJ25fKVl uGPuy1pwyOx4NvLlGBGt KWO1eSqiTYwgx2Ru ZXI (more content not included)... Normal [facility] ED Clinical Summaryon 2022 ED Clinical Summary [facility] - Emergency Department [address] [place] [address] ED Clinical Summary PERSON INFORMATION Name: LIA DESAI Age: 22 Years Sex: FEMALE : 2000 MRN: Acct#: Visit Reason: Hip pain; LEFT HIP PAIN Arrival: 11/15/2022 16:28:10 Discharge: 11/15/2022 17:02:00 LOS: 000 00:34 Check In: 11/15/2022 16:28:10 Checkout:11/15/2022 17:02:00 Address: [facility] [address] [address] PCP: Provider, None PROVIDER INFORMATION Provider Role Assigned Unassigned Anusha Palomo CNP ED PA 11/15/2022 16:30:26 Jayne Zuñiga TANK WASHER Nurse 11/15/2022 16:32:34 VITALS INFORMATION Vital Sign [...] verbalizes understanding of instructions given Comment: Normal [facility] ED Patient Summaryon 023 ED Patient Summary [facility] - Emergency Department [address] [place] [address] PATIENT DISCHARGE INSTRUCTIONS Patient Information Name: LIA DESAI Age: 22 Years Date of : 2000 Reason For Visit: Hip pain; LEFT HIP PAIN Arrival Time: 11/15/2022 16:28:10 Primary Care Physician: Provider, None Attending Physician: Bennie Sharp DO Comment: Visit Diagnosis: Diagnoses This Visit Hip pain (78977104) Sciatica of left side (M54.32) The Pharmacy at [facility] is open Saturday through Saturday from [...] contact the [facility] 29/10 Crisis Hotline -Text [phone]. If you received any narcotics, sedation, or [...] and treatment you received today in the [facility] Emergency Department were for an urgent problem and are not intended as complete care. It is important for you to follow up with a doctor, nurse practitioner, or physician?s child development assistant for ongoing care. If your symptoms [...] so we can reach you if necessary. [facility] Emergency Department has provided you with a complete list of medications post discharge. Please inform your cotton ball machine tender/provider of your visit and for further instruction on these medications. Any specific questions regarding your chronic medications and dosages should be discussed with your primary care physician(s) and/or pharmacist. Medications That Were Updated - Follow Below Instructions [facility], [address], [place] [id number], [phone] Updated: predniSONE (predniSONE 20 mg oral tablet) [...] Stop right away (more content not included)... [facility] Progress Note - Nurseon 11-06 Progress [...] low back pain. Patient was seen at [facility] on Saturday and was diagnosed with sciatica. Patient is to see her PCP next Saturday. Patient was prescribed Flexeril and Naproxen. [Electronically Signed on: 11/15/2022 16:49 EDT] Devaughnpaulette July DANIELLE [Verified on: 11/15/2022 16:49 EDT] Zara July DANIELLE [facility] Coding Summaryon 08-28-2022 Coding Summary HTMLBase 64 PhbsuzwtDXz6uHl+PGhl YWQ+VI0YIOYhS51wmUXh tD4qH4JSOTlQDvmmTLIP MHpOVaTtjtMvZY3fzLVr ZXJu IC8+ZW7gMPRcVbmiqCNp s2T4fGE4X37tlk1zXRcc lZN7LNXkVpPlpduaf1ub dYn6WEixRlvfAiJh XUNkuF31QJX3wN38Cw08 zKWimUVwi5duuDw8TnQl KBVfXXV2cCklZTqdr9Yh SESpJ99esTCwm9U8 IGNvbGxhcHNlOyBlbXB0 uU3dJCaybsaof4eqyqyx Okc9bt19mVSoc9S0hYM1 D3OfeaT6GJZnjBHt SescmKISvG7pinhdy1xz hzmrFsVbBJCjRKu9FBw9 ABMxsMmwShUlWO95EFU8 PABchwShL1NcZBKi wSbgAuI4b5A0Th5SB5QU WhkwW8VGPESUTFbvaCM+ YY11yr92Q8QwHoiwGrt0 YLYtGLV6yXZ7cA4z JSZjJJewn3F7wHO3O7Xp ilRsro4oq7rbSDYhMGut D28vzDYyy8Y6VMScdPA4 VCHndOhhVoLioO82 Oyc+ZEDyyOicn1AcIheu x7oop4xuwIh8FttkIBDc bwIkvAyrRZN7a6GhHv3g LXXabJZ8kFM2jD8a QeBjDzQ5YTwjC904OxSu wAYaQebrR99vN7UocUV+ ZWJpLjz3RDVxeVlmKG1h E7OkKXNfaqdazOZr aCacAR1iCSNknyvjMZUl zZ8xLQYlZ5o8TnSrBgE8 QUoxJ3XjDOLcjdsdQf76 nA3oBrBmUzH3YXwb B0MqodX2TQGdvCLgLBrf EMF4K20wp1Q2AYMqAWKw ZEB7tON9pB1wyFgbfzii bGVmdDsgdmVydGlj GPuuIAibT780VBXwhXpj PkNvZGluZyBEYXRlOiAg MDUvMjMvMjAyMzwvdGQ+ LZSdZFS1wHksKPDt eLDdTBknZi8auGparVwh UB3oMZEjgwppSMGqrD1u GSYseFSadApyZT8hAELu gbbis201VhQrGUK4 ORWqqBCcJ6AmpU6uApKt KSUmQTRfL7EefMNjYDpj W085MIfmIhL1OWBkroTn X9QrIMPmmPgzLuC3 z3V9Ed6Yf4RvlybcE6Od fDXgPlGvZsrsXBv8W8Pg PjwvdHI+IG67WUZlLH00 OUa5XBI1tDsmOMpn TJLiG4BvyQ3jOiGqGVXo ZGRkOyc+PHRhYmxlIHdp ZHRoPScxMDAlJyBzdHls MN5qEm7mEKDmVCFo kNekdPGaRdHae5rhEEAu OKzzJG0fvDsjN8DxmZQ4 AAYuy7l7Dz17C58vM9Eu dXA+HZTkyTJ2rRB5 wR5mOeRjJeQ5ELouE096 EbZumYJlSavlf8onn1rf yCh0OiM2XPAyrxTdjLxi KZO4m7JtIo77U86h IHdpZHRoPSIxNSUiIHZh qHvlbs6uoX9mGl0+PGNv pHR9cZY5xM3jBsUcRjQ5 IKozV735VyQzaSMr Biiqo4qjc8lpmFe8RgRw WTWvciKyeLniZPU1z9Bk Dc74S7ZefGjky8RtZoy9 si27uLKxs6J8aWV2 H5UcRCChcgjvcYRzfXgw LK8iMOXlmwquUTCtiG7q PVJbP7e1FhNdIsY2GGjn H2VzpzG0AMIeeGPv XFXplOCAaB3rcjxgz0bg gxhoFnAmRROhXEf0YQv3 EVScwEyfKxCuQAD8BbW6 XZJ7bJPacK9ehAlu tpbloN8hLms+FYP7aTSe gUTGDD8kWcjhcDH+PHRk YFF7yUtqMNslEWClwM5z OGNuI9s6AjKrRxV0 WIspJ7BukcB0CUQanXFq CJXmdSHMdA6aejtdg9it japfHzWdOGOzDOy1SLw5 LWFsaWduOiBsZWZ0 BfL5ZSA5vTAkyH9jmPhq urpxeF9nYli+QmlydGgg CQT7FUt5B3OuYeu1CNBw xLcbZY6xwQSeRFmc Qh2msJvzhEbuIW4xFDRv unmvb659FqAua2phIROn wCJhEKwoLLF7Q39bh4I7 RSQeGDDtJFX3gFX3 rN5wmVbshziymQAffDbd tsHbfFafVZhrLReiX113 LWCaiIjmSjPpWSm7G5Ph Ofq9SKQkpOmtJH6r mNXvFPdtLf9ekQuxgPkf YF5gDGLextiee519KvLp f5dgBKOjxZThUIsfZHQ8 G80dd8F5IHVaPDXf CBA9jMI2rI8eaWwdgkhi bGVmdDsgdmVydGljYWwt PRskU953QPUemDfoJbBz bYf2T5SbXye9JXUi tXhhUB4iqWRjLKieYq7h uAfliFbnEO5sIHJrnxnd q100GnNwy7leJRHjpDDu GYkbPOK4F15av4A4 BDScWFWjJUX9zPJ0jI7l bGlnbjogbGVmdDsgdmVy oPriLAawJIbgJ344HJMw cDsnPlBhdGllbnQg GJgeECf1Y1XxGszflNA+ JZ44VIEhEJ57zZGlhCLd y7xirKq9DyHrNWYwCPH8 nPclXIktw4DuWYHd W40qbEOny8A0THJbuDtn jGFhZjVivWF8pI4yEJzl wnoaw7ambtxdBewdg8pt ik91cG06U49nKZtg ZHRoPSIzMCUiIHZhbGln tn7kpG5iSw4+PGNvbCB3 gRX6nP5pTJKiLhF3BUhl P056GeEnhNOnUkhg s2rbm7vfoMu9OfO2YXJu feMdyBvzEIV3o2BiTl13 D91aBIpjRTVrBRCrCMLz WCYjkXdwbf4kgY4p Ii8+ITAdtFN1hDF8aG8y ImIsQzV5YArhG488MdPg dJOpFcmlC33xN5ByhWW+ TATjCgo8FLByiJqa XU0ykXNlOQqbCy6wGYZ7 HmLpYhBtHAagO5GcQJCa vjwnhaskpZD7XBEnISOu rI64Ji3jyYwcHPHj zRJKhX2evsttf2zlimph BkBxTGLhCWd3PNu7LSWf nVpbPxHkZAL3OmX7XGF1 nGIhwS8muLsqohuk dZ4cN1ThAHDggvwcMm59 nZ9qNjYdMmI7SSqzXie+ S0iQTfDSUNdrU4mNYBUJ DIhFSS9YBToswXI+ HALuGCG7kAfdFWbsYMFf vK4vOHVyJ2n1KeInJlA8 HLyfS8QiGFHxcvmhMi69 pK7sYwMnRcH1TPti A2VuqnN0MVHebKTiMKcr EAJ9C30gj6W3UKMrJLZh IMX5kVC3pJ4xrChcpjqk bGVmdDsgdmVydGlj BImgHNqvW913AZYspNxy VaT0YiOkCqNxWLY9V2Xe Uxs9URZvpMlpSY7owXGc PMvkPt6pdBmtdUdi PM4iWVHsvfdlSAHeuQ6j RRSbmKYsvHnuNH0yGFXu nkemh373QhQwFZB9MDSv tTUwY6RhoJ1mQfQe XRGnFCBaZ2LakEKwLGzu R859XFvyLeP5ETJnyvAn Q7BzPDGhxRzgHoE2o1Q4 Mt9bLJOIABMeeeem dGQ+XNElSVY8lDzpTKrg CSNbaK5rVTFvV9m4YjPg SeE7NPqoL0YzRQRxpsfd Hf72oE2rAjPtFsW0 LKrqB2YwpeT8VVXedQWs FDsqBFQ5T19qz9P0RIGh OMMoGFX3sRT4cI1ryRhr bjogbGVmdDsgdmVy uSboLYfbKJeqJ690WLHx cDsnPkZFTUFMRTwvdGQ+ XTXkYLF5vZfxZXdlJCZx eF4fXMLtT2z7NoGg XdS7TJsuP0DsGGHnfgyt Rh53lA6lYtVgZmZ0BTkn N7XhdkT7PQSrkRShJTty ITC6V57pt4V6TSJm AYZoNGB9hYV9fF1zfItx bjogbGVmdDsgdmVydGlj NUuaKJbfN512OTIiaOsu Tu3ZKA58RN52I0Dv PjwvdGFibGU+PHRhYmxl IHdpZHRoPScxMDAlJyBz iZqnDO6iJi3nTPKnTGHu bZvybMKkJyQyq8xt UHTrOOiqXR7efYluR5Mn aXK6USNcw8t4Np01M53g Y4EuiRR+DIMoyRT4mTZ4 nL3rDuFlHhA9YGjk Q941QlPvbPFqXnveb0ap q5swcXb5NbEfNGVgguNg gIoqBEA5r0WsFt84D50e IHdpZHRoPSIyMCUi SHHepFphrb8bfM7kTr7+ WWAzeYW8dMI0dM8qKeZj MzG6YDlzD277WbMtjGCm JuycU08jC6MaeLJ+ TEYxSkk8YOOseJwsJN4r zHTsHVneNh9cDXX7FjAw LyUfXZboB9PkYHNdrboi kbwbwJS3NUDdMHPq uN09Vv1suCxwRy7lJTPw DDJ6COAjnRPgT2SfsE3p KzTsZWJbBTQwK5XavJSt LHhgI610VKhmPqK5 RYAofzCvR7BhVIJpqQgl ObS9d4F7Pk1VoDxjdTTt KG6rBzZtXYy0E7AeYqn3 XJMkwQskNS6oySNy HUuqKo0yfCodtMbaIP5g EPXeeuggc559SuUeg8le LCVjdVZbAXhbDBZ8R48q y6T0HAKjCDCeWPL0 yZB8sI7pxImvfmdzoJNi dDsgdmVydGljYWwtYWxp S709CVZxvJtlUcSEWla4 G1AxWgp1SALzrHoy RE6puNPhCIefVu3fdFvz fSisFP6zHUHuyrhzp465 HzYlj8tbKETlkSPnZRxh QXX0E25am0Z7MRWr RIFmGGK8eEK7aJ4pyTdw bjogbGVmdDsgdmVydGlj ZGpwKAmxB167HUMflClj Mv1QOhj2M2KgWtj6 VHRjxKviNJ6gyUAgKHor Hd0brHzdtAwzBV6uWJGz kelmz454EoRsk8ssUMYz aBYzMYahOCV1F94i y5U9SAHhTACiITC9yEQ3 lN2hcFzdfwknxTUadUlw yhHytAhbZNqoMTitT506 IHRvcDsnPlBheWVy OjwvdGQ+ZL79hi48N8Yn GlwnCew3LVKfRIL1uKV3 lA0wKAEkTPibl3D8fZL4 X5TudeUwnu5hd8au YXB (more content not included)... [facility] Physical Therapy Noteon 08-07 Physical Therapy Note [id number] #1.00OTGTIFF Normal [facility] hCG Quantitativeon hCG Quantitative 3.0 mIU/mL High 0.0-0.6 [facility] Comment on above: Result Comment: Post -Menopausal Reference Range is: 0.1-11.6 mIU/mL Performed By: #### [id number] ####[facility] (DEFAULT)[address] [place] [address] Coding Summaryon 08-16-2022 Coding Summary HTMLBase 64 ZftoawegNOg3hUw+PGhl YWQ+FI6YWSOzU46nrZPx jA4ON6hCIO1FZALTIVSB CK1CGL6gnTK3PZmaO3Fh biAv WowjyAMmMM00AMk3SIR8 eLztWNsezT6tpYAyA2s5 EiJxCF96pC87VZzsKFGp MsY4UoSkrutpwBSy G3jzRzPfjDSfAga+PHRh YmxlIHdpZHRoPScxMDAl VzZpyBnkXP0aMy4rABZe LWNvbGxhcHNlOiBj r0pgWJBpHBmfHU8dtDqj H3WlpRB5PQHzq5x9Mh94 dHI+XSDySJA1iOacMJjg a693NxHzy4dlYXI5 tOGfYEfwCBQ8H24ui4Z4 MSHlMICqAWF0fCN6aU4k vVnljghhJ5QxxAHpEqJ9 OOZ1fWRexH5ulFbp exsyiR7fYng+D74ZHY7O DREAZG8MJvg7C4HiUbye dHI+GR83SOEhYR48cEIl lLBbj1pndZx5IgFr MOOjHMC2gJssVWdbc9Bs VOVhK04sdTTey1A5EGOv cQadeGKzArHpuXN0dQ7s WMfvcccsc5ktvjlz Gghbf8arev30iG49C77t OChyGVSnOEM6RSQuRYQk fWemka3ddZ2oXp4+IDxj m2ieg4ldyYr7QqIo ZWOansHzeUtvQJJ0k9Nv Ae41O5SlzMcob1PlTkm3 wa07jNQjf7P9kKJ6OHji DYCbhU1xSHdxCpN1 BZLpFsYicB15gEQkDQft Yg0xbZvzrBtcCH4vGREd kawrHMTryO5jEOOjnCOm tPexST6oHGBpwxtm j548AkCuTSJ9RYInbWUk H7DriS7pFtWvZXFmGZTu Z7OniEPbMJrjB602XUft VpW3OMZbfeOrN3Mw CFZieOreYkE7j1D3Ea1C m1ZfeljiTML7THpoRJE7 QrWxWtSmRzD4R6KoJnt3 DCRxqDtyNJ8xR8Ll OOGjtzpsaaazhFS8NWWb RSRszG68dSDmJStqYg4q m0S9b902KOApTXEhdQ57 Nz1rsTyoGUJqcNUE pC3kvrqkn5sbfowdKkWh CMHjJOl0YSp1ETAysXkx DiMnJBU8GqN6IQQ1jKAo jE7srQgunxesjX5h Oyc+T08kaX8kKVX5WBR7 jnzsZKWdfwVxXF26HS68 T1GyUwuyjHRnaYG+PGRp xiFcqPssKM8yKlHw y6nye7GxYIbbD1PsDIXm BLyhZup4EOQvNNH0xOY4 nY1pKRRyTQqds8J0ePF0 U4LzdsAtqi4wf7jw TBDbJWfeN02vmLLfb5H4 VJWdoQU3ALCmsQqbKdZi qF29Fto+BSQpeDtlk6Kf Qxczs7ksd7ybeLf7 IjMwJSIgdmFsaWduPSJ0 a8YtMg38F35tCKfjWGWx NXZpENVaCNMxfVwlqh1b kJ5dRf5+PGNvbCB3 hFU6kM0hKYBmNrL2RIrh X544UoVcvCCwNzkdw6qh i9rsvDw5IdIlLFUwloJy xFlbJUR1h5AbWa36 T26vIQioZZAfZCXuQZOp VALruEhylq4fcU2lCd8+ GD9gt0etwz45rM00jEB+ XMOhUVF2hKgeUZpl XEKcuL7sFIymBiP5LAQa HbMhhG66iPVuIGtrTx8c pZifuMwuUX5qMGWwlsdx c501FpSuj6eyNUZe xUDxHGyvSVC6E18il8G7 SVOrWXUiSVM8eUG2fE2f bGlnbjogbGVmdDsgdmVy kTlgCHigOSaaY928 IHRvcDsnPlBhdGllbnQg EcZyQTb8H5CsLcg2XREx iHsaNT4hcRVdWOgiFy1r pGfpvFoyJU8cBGOx npmyv850KjJlr7jtFMKh bEKfIQzqIOS2K01zs4H9 EKOsUIOuZXT5kDN1mP1h bGlnbjogbGVmdDsg tqTnwTgwWDmgNThcH123 IHRvcDsnPkJpcnRoIERh hKY8PO09YK67vSRxr1D6 gRT5X0SgBFHrpheq snaktCL7ZCKxBKXfgU00 Si9epLeeYd9gLCJiMJR6 TSBwoJGlH6MdvF3bVmQx YYFiHOVlR1KgzBZu NNxfT695XJubXeZ7KSSp frAaY0JyNJGmxNzrUgJ0 k9N0Vr8IH8K6MH68JS51 fCTbn4R3uJB8R8Og GVTkgsstzoldiUK9CGRm KXXsrT26Lg7kcYkwBu7p WMCuWXB1RFYkgIEzY3Hx dJ1oOgFhRVKmETVs P5PjhJRcPTmeL136QDbg ZwI4QXKasoFeF2OrFMIs xKycZvD3w3M4Cw1ZZTm7 TS05CM29fGVuz4N9 oKR1B8ZtEXJicevvfwlf gLF3KDMgHEReeQ88Op5a rUohNx7nAGZgOOQ9OUCc eNGwN1RueF2aRvMr ZKCyILTjQ6MxgMLvVWir X531QBrmMwK7GTJyxjZq Q4PzQMJifQogEoY0n7T3 Ba1XUDXhBJ95GAY7 mYY0GN11MB39H4IjBmkz dGFibGU+PHRhYmxlIHdp ZHRoPScxMDAlJyBzdHls RU7lSj7dZPQpYADn gTcvlWJbYvEob8utZDRq OMjnMC6ncZkhC0WncHX2 RLIes6c6Fl59S40qD6Xw dXA+VDVbfXM6mNN0 nZ5nYyOgSjS3UHymB255 KqRjyJSyLjcxj9lkt7mn tXe1RjN5GZNjpqCnfLqn CFS2u9PiVw41C46w IHdpZHRoPSIxNSUiIHZh cEtjgh7eeT1nQv1+PGNv eKI7wTR8zL9lNlLaIsF6 XLshK674FfDatWKa Klkan1jnv4pmiCt4BvXf KGOyqzJzvHclCXW7q0Vv Ny19U3AyuFhne9WeIrn3 kz62sMPfk1M7eHI1 T7DvNYKfhfmgwVMzbDsm DW9aVPUvyoprSPDltY2y IXDsS2f6WiBcFjZ3IUxt V7AakzD9JCNetVIu KWvhJVP2F57hr5N3FRYh AWWoURS5iQY7sN0whQcp bjogbGVmdDsgdmVydGlj SQkpAJuiF894XLWe uNclWOKgpZ7cRBRhfAWd kEjeBN2vBOHandshYnoM TEJFUlQsIFNIRUxCWSBM OTTNWqG7G4YlJnt4 VHUrbDniHY0mrUFfDIce Ee4vsZxmsQefJM5fGXWz jwlvSVMkiD9iPCXhsZYa hWuqFR8pDZEmhkql r353ZtHbVWG9FMXxzLQj O7IaoM2zIuVxNEXoBFBh E9WjsKUtPEmbS343AVzm VeA4QUEfpuDxD0Ra IAGnqPiyXmQ4r7J2Eb3p Ni9nQz4ySDQkNM59LA47 wJXep0W7zGW1V3EpVBOx rovfqunsuAO4VBMz XBRwgZ56jYVsLOszMz1t u0R4c530IGSwLDDjuL56 Ck7pgWlvCTCaiOUKdJ3g ofmbb7jjldgyOyWk HTLzXJb2YRw6YBAylMvp KwDfHBL8EpF1UEO2iYJl aF9mzWjcqrbyuT1oQjx+ GyUzUBAykvL7V9Vf Zqa2AWPgeRofYX5alGNl LZoaYe3hwMzjuZnjOR2k LXMuqghgXSXbsM5jSZYv eYHxdWbbQB9zGCZh rwamc446BiUhNAH8HMCw eWAzB9FxiD3qUdRtGLSo NCAmG7DxlHRzZZihA478 HKhdQyU4FSUolbGt E7SbOWYplDzvDsS9l5T3 Qi0UTR9KJMK0G3LnDvw7 HKZoyFlvGP0hxGXjNXbn Pf7cfIybgMvlIS6b NBEnasenCJWryN8rZLAc fOCclWayTE5eNHXarutm y893UcQzYKS9AVQtrBMs E8JswE5vPgVmBIRs IIFcW7VqoXLlCHuvI098 WLuiFnF1SMJhdjLrS3Al EMWcdVaiTjZ9j9N3Ac4X lOAuW1ZbP6x6O6Kw PjwvdHI+QB91QBBlWJ60 hBEjiPGzd2ryqMb4IaVb DRRwENM8hGmuOTaeh2Mx GJZcN38bsBLhk3S1 IGNvbGxhcHNlOyBlbXB0 fE0rAFuauwwyx0tqirwk Nqvta9lgul59tV10F11k IHdpZHRoPSIzMCUi PPNkiGwtqj1rpF4bCn9+ YVHwnJM0gDP3cI3oTvSy AjB2EAexJ372DeFurMCf Hpxeb8iyt5zzpZe3 IjIwJSIgdmFsaWduPSJ0 z0MjLx55J45kTPhtQLEh PPQhXYVkXWQvcTemrq6s xQ7wEq2+PP7fy6hh ix85cZ83pTM+PHRkIHN0 gHbqHRdyGEIgdT2iWQfr FyK9NRGrJhIlfJ89kXDm DHedFg5pwZfztVzn NJ6uZVNnjbggw227EoMc k8yaEFAdtOSaFPvtWDC8 F58il6T3PBLbVDEaEAE4 rZD8dW3tcPrzcssv bGVmdDsgdmVydGljYWwt CBduF583AHTsbTuhHgQn eXUyJ6umfhBCZD1eAphh dGQ+AEOqWEN8cJnt KLdgIVSmeS0tMVEkO3l7 RwCsNbK1EHrlR0QlggP4 BLPjoDVfTYIblAUZaL7x zkgje0xofdztWcUw IIDwUPi7JDy5XAFrqErn MeScEJV4IhC8AIC9fBGw pL3yiHgapxymrX4fIwh+ RklOOjwvdGQ+PHRk LKO8yXbfFXvaGNEmmB7z CYZsW0y0KuMaFmY3YDfx M0FhccP4EJUrlISoUDMe uVMXmZ5xhjzyt0hc eumyMoWqUKBhCNh8ODg6 JDKudHskNyUkDBE8HjN3 OLR0yCYdxU1hqTzrrydl oU8tNap+TVJOOjwv dGQ+CBMqORN1hQurQRtr ROVpkY8vVHFyG7h8QiKb ZoB9WJuuD7JpjzT5THKk xQLqWICmgLQSjK6a dyebk2gdvemrNlHvHUVc OQu9DXg2SIYzeIhpBzHt NIQ5TqA5WVK5vDFjvC2l jKlbbvrhfS2vFvs+ ZRK7JCR5NV63LL49P6Pw PjwvdGFibGU+PHRhYmxl IHdpZHRoPScxMDAlJyBz wHdtBG4pJs7lPWRu LWN (more content not included)... Normal [facility] .Auto Diff 08-11-2022 Auto [place] % 7 % Normal 04-19 [facility] Comment on above: Performed By: #### 1 [id number], [id number], 6444203, 4037661, [id number] ####[facility] (DEFAULT)[address] [place] [address] Baso Abs# 0.1 x10 Normal 0.0-0.2 [facility] Comment on above: Performed By: #### 1 [id number], [id number], 7669098, 7658604, [id number] ####[facility] (DEFAULT)[address] [place] [address] Basophils/100 WBC (Bld) 0.8 % Normal 0.2-2.0 [facility] Comment on above: Performed By: #### 1 [id number], [id number], 3472880, 2137997, 70102112 ####[facility] (DEFAULT)[address] [place] [address] Eos Abs# 0.0 x10 Normal 0.0-0.4 [facility] Comment on above: Performed By: #### 1 [id number], [id number], 8572050, 7123313, 47773581 ####[facility] (DEFAULT)[address] [place] [address] 69367 Eosinophils/100 WBC (Bld) 0.4 % Low 0.9-4.0 [facility] Comment on above: Performed By: #### 1 [id number], [id number], 1958359, 1446736, 03758175 ####[facility] (DEFAULT)[address] [place] [address] 21045 Lymph Abs# 3.0 x10 High 1.3-2.9 [facility] Comment on above: Performed By: #### 1 [id number], [id number], 1313385, 2002939, 40969534 ####[facility] (DEFAULT)[address] [place] [address] 25795 Lymphocytes/100 WBC (Bld) 25 % Normal 14-48 [facility] Comment on above: Performed By: #### 1 [id number], 0237162938, 3291310, 5602159, 30580673 ####[facility] (DEFAULT)[address] [place] [address] 91649 [place] Abs# 0.9 x10 High 0.0-0.8 [facility] Comment on above: Performed By: #### 1 [id number], [id number], 0376681, 4975189, 45670658 ####[facility] (DEFAULT)[address] [place] [address] 81548 Neut Abs# 8.1 x10 Normal 1.5-9.2 [facility] Comment on above: Performed By: #### 1 [id number], [id number], 3212959, 2585028, 90129131 ####[facility] (DEFAULT)[address] [place] [address] 25590 Neutrophils/100 WBC (Bld) 66 % Normal 44-88 [facility] Comment on above: Performed By: #### 1 [id number], [id number], 1786582, 7382822, 39676736 ####[facility] (DEFAULT)[address] [place] [address] 53699 [facility] 08-11-2022 eGFR Non AA >60 Invalid Interpretation Code [facility] Comment on above: Performed By: #### 1 [id number], [id number], 5323431, 4961613, 65005505 ####[facility] (DEFAULT)[address] [place] [address] 80059 eGFR AA >60 Invalid Interpretation Code [facility] Comment on above: Performed By: #### 1 [id number], [id number], 9058226, 5032500, 74779996 ####[facility] (DEFAULT)[address] [place] [address] 10143 Anion gap [Moles/Vol] 18.5 mmol/L Normal 5.0-19.0 [facility] Comment on above: Performed By: #### 1 [id number], 2602571563, 6686053, 9307305, 21390033 ####[facility] (DEFAULT)[address] [place] [address] 44763 Calcium [Mass/Vol] 8.7 mg/dL Low 8.9-10.3 [facility] Comment on above: Performed By: #### 1 [id number], 5107265564, 0020368, 6591333, 78213730 ####[facility] (DEFAULT)[address] [place] [address] 88324 Chloride [Moles/Vol] 100 mmol/L Low 101-111 [facility] Comment on above: Performed By: #### 1 [id number], 1814967166, 2006662, 1103336, 16178587 ####[facility] (DEFAULT)[address] [place] [address] 25433 CO2 [Moles/Vol] 24 mmol/L Normal 21-32 [facility] Comment on above: Performed By: #### 1 [id number], 3070928921, 7988419, 2646470, 50243368 ####[facility] (DEFAULT)[address] [place] [address] 45810 Creatinine [Mass/Vol] 0.57 mg/dL Low 0.60-1.30 [facility] Comment on above: Performed By: #### 1 [id number], 9126871142, 2204648, 6955769, 51270007 ####[facility] (DEFAULT)[address] [place] [address] 10245 Glucose [Mass/Vol] 98.0 mg/dL Normal 74.0-118.0 [facility] Comment on above: Performed By: #### 1 [id number], 0179344953, 3154185, 1339120, 17198271 ####[facility] (DEFAULT)[address] [place] [address] 13656 Osmolality 274 mOsm/L Invalid Interpretation Code [facility] Comment on above: Performed By: #### 1 [id number], [id number], 3459615, 2506953, 69565570 ####[facility] (DEFAULT)[address] [place] [address] 48107 Potassium [Moles/Vol] 4.5 mmol/L Normal 3.6-5.1 [facility] Comment on above: Performed By: #### 1 [id number], 6554467151, 7624595, 9299645, 92077551 ####[facility] (DEFAULT)[address] [place] [address] 69990 Sodium [Moles/Vol] 138.0 mmol/L Normal 136.0-144.0 [facility] Comment on above: Performed By: #### 1 [id number], 6342866243, 1988342, 9667413, 38560652 ####[facility] (DEFAULT)[address] [place] [address] 85376 Urea nitrogen [Mass/Vol] 9 mg/dL Normal 8-26 [facility] Comment on above: Performed By: #### 1 [id number], 3579024717, 6543419, 6272784, 73801720 ####[facility] (DEFAULT)[address] [place] [address] 04438 Urea nitrogen/Creatinine [Mass ratio] 15.7 mg/mg Normal 4.6-16.2 [facility] Comment on above: Performed By: #### 1 [id number], 8033554636, 4184572, 0058695, 44137261 ####[facility] (DEFAULT)[address] [place] [address] CBC w/ Auto Diffon 3 Erythrocyte distribution width (RBC) [Ratio] 14.1 % Normal 11.5-15.0 [facility] Comment on above: Performed By: #### 1 [id number], 8220248408, 0204645, 5947273, 14617907 ####[facility] (DEFAULT)[address] [place] [address] Hematocrit (Bld) [Volume fraction] 36.8 % Normal 33.7-40.4 [facility] Comment on above: Performed By: #### 1 [id number], 7142607570, 4933147, 3260895, 66305085 ####[facility] (DEFAULT)[address] [place] [address] Hemoglobin (Bld) [Mass/Vol] 12.1 g/dL Normal 11.3-15.9 [facility] Comment on above: Performed By: #### 1 [id number], 0968765046, 4550824, 4935723, 63366050 ####[facility] (DEFAULT)[address] [place] [address] Man Diff? Auto Invalid Interpretation Code [facility] Comment on above: Performed By: #### 1 [id number], 9111059224, 8546202, 0293122, 05028659 ####[facility] (DEFAULT)[address] [place] [address] MCH (RBC) [Entitic mass] 28 pg Normal 24-34 [facility] Comment on above: Performed By: #### 1 [id number], 7315967541, 4183505, 0253519, 19314016 ####[facility] (DEFAULT)[address] [place] [address] MCHC (RBC) [Mass/Vol] 33 g/dL Normal 26-37 [facility] Comment on above: Performed By: #### 1 [id number], 8981803904, 4028901, 5606313, 37113018 ####[facility] (DEFAULT)[address] [place] [address] 31548 MCV (RBC) [Entitic vol] 85 fL Normal 81-100 [facility] Comment on above: Performed By: #### 1 [id number], 2350604810, 7968998, 3297231, 02679098 ####[facility] (DEFAULT)[address] [place] [address] 99280 Platelet 367 x10 Normal 138-427 [facility] Comment on above: Performed By: #### 1 [id number], 0338068371, 9778912, 5919087, 28758539 ####[facility] (DEFAULT)[address] [place] [address] 44787 Platelet mean volume (Bld) [Entitic vol] 8.1 fL Normal 6.3-10.2 [facility] Comment on above: Performed By: #### 1 [id number], 7242948105, 3520748, 0656457, 05766512 ####[facility] (DEFAULT)[address] [place] [address] 38483 RBC 4.33 x10 Normal 3.70-5.30 [facility] Comment on above: Performed By: #### 1 [id number], 7007955257, 4750815, 0065088, 66101325 ####[facility] (DEFAULT)[address] [place] [address] 58628 WBC 12.2 x10 High 3.5-10.5 [facility] Comment on above: Performed By: #### 1 [id number], 8767807524, 9125510, 3578202, 01311965 ####[facility] (DEFAULT)[address] [place] [address] 13165 ED Clinical Summaryon 2022 ED Clinical Summary [facility] - Emergency Department [address] [place], [place] [id number] ED Clinical Summary PERSON INFORMATION Name: LIA DESAI Age: 21 Years Sex: FEMALE : 2000 MRN: Acct#: Visit Reason: Vaginal bleeding - < 20 wks ; 7 WEEKS, VAGINAL BLEEDING Arrival: 08/11/2022 12:41:34 Discharge: 08/11/2022 16:30:00 LOS: 000 03:49 Check In: 08/11/2022 12:41:34 Checkout:08/11/2022 16:30:00 Address: [facility] [address] [address] PCP: Provider, None PROVIDER INFORMATION Provider Role Assigned Unassigned Adamaris Jaeger PA-C ED PA 08/11/2022 12:44:39 Arabella Romano TANK WASHER Nurse 08/11/2022 12:45:45 VITALS INFORMATION Vital Sign [...] Resolved Disease caused by 2019 novel coronavirus ([id number]): Onset on 11/23/2020 at 20 years. Resolved. Comments: 11/23/2020 CDT 16:07 CDT - SYSTEM Problem added by Rule (IC_COVID19_AUTO_PRO BLEM) following 2019 Novel Coronavirus (CoVID-19), MILY L from Nasopharyngeal Swab collected on 22-NOV-2020 16:44:00 EDT tested positive for COVID-19. no history ([id number]): Resolved. Contact dermatitis (40855098): Resolved.. Surgical history: Tonsillectomy (364144234).. Family history: No family history items have [...] quant draw (more content not included)... Normal [facility] ED Note - Provideron 023 [...] Resolved Disease caused by 2019 novel coronavirus ([id number]): Onset on 11/23/2020 at 20 years. Resolved. Comments: 11/23/2020 CDT 16:07 CDT - SYSTEM Problem added by Rule (IC_COVID19_AUTO_PRO BLEM) following 2019 Novel Coronavirus (CoVID-19), MILY L from Nasopharyngeal Swab collected on 22-NOV-2020 16:44:00 EDT tested positive for COVID-19. no history (456068951): Resolved. Contact dermatitis (63698326): Resolved.. Surgical history: Tonsillectomy (100290158).. Family history: No family history items have [...] % Auto Lymph % 25 % Auto [place] % 7 % Auto Eos % 0.4 % LOW Auto Baso (more content not included)... Normal [facility] ED Note-Nursingon 08-11-2022 ED Note-Nursing [...] to do a D and C. Normal [facility] ED Patient Summaryon 023 ED Patient Summary [facility] - Emergency Department [address] [place] [address] PATIENT DISCHARGE INSTRUCTIONS Patient Information Name: LIA DESAI Age: 21 Years Date of : 2000 Reason For Visit: Vaginal bleeding - < 20 wks ; 7 WEEKS, VAGINAL BLEEDING Arrival Time: 08/11/2022 12:41:34 Primary Care Physician: Provider, None Attending Physician: Andres Duval Comment: Visit Diagnosis: Diagnoses This Visit Miscarriage (O03.9) Vaginal bleeding - < 20 wks ([id number]) The Pharmacy at [facility] is open Saturday through Saturday from [...] alcohol and/or drug addiction problems; contact the [facility] 29/10 Crisis Hotline -Text 5BDRV bv 472789. 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 It is important for you to follow up with a doctor, nurse practitioner, or physician?s child development assistant for ongoing care. If your symptoms [...] so we can reach you if necessary. [facility] Emergency Department has provided you with a complete list of medications post discharge. Please inform your cotton ball machine tender/provider of your visit and for further instruction [...] may ma (more content not included)... Normal [facility] Extra Redon 08-11-2022 Tube Collected Yes Invalid Interpretation Code [facility] Comment on above: Performed By: #### 1 [id number], [id number], 8060748, 2594775, [id number] ####[facility] (DEFAULT)[address] [place] [address] UA Alvog9nw 08-11-2022 UA Amorph. Rare [facility] Comment on above: Order Comment: Urina lysis Microscopic order added on by Jogg Expert Rules system. Performed By: #### 1 [id number], [id number] ####[facility] (DEFAULT)[address] [place] [address] UA Bacteria Trace [facility] Comment on above: Order Comment: Urina lysis Microscopic order added on by Jogg Expert Rules system. Performed By: #### 1 [id number], [id number] ####[facility] (DEFAULT)[address] [place] [address] UA Mucous Trace [facility] Comment on above: Order Comment: Urina lysis Microscopic order added on by Jogg Expert Rules system. Performed By: #### 1 [id number], [id number] ####[facility] (DEFAULT)[address] [place] [address] UA RBC 0-2 [facility] Comment on above: Order Comment: Urina lysis Microscopic order added on by Jogg Expert Rules system. Performed By: #### 1 [id number], [id number] ####[facility] (DEFAULT)[address] [place] [address] UA WBC 0-2 [facility] Comment on above: Order Comment: Urina lysis Microscopic order added on by Jogg Expert Rules system. Performed By: #### 1 [id number], [id number] ####[facility] (DEFAULT)[address] [place] [address] UA w Culture if Ind Standard on 08-11-2022 Breakpoint UA [facility] Comment on above: Performed By: #### 1 [id number], [id number] ####[facility] (DEFAULT)[address] [place] [address] Color (U) Yellow Normal [facility] Comment on above: Performed By: #### 1 [id number], [id number] ####[facility] (DEFAULT)[address] [place] [address] Culture? Not Indicated Invalid Interpretation Code [facility] Comment on above: Result Comment: Resu lt created by rule GL_MAGR_ADD_UA_CULT Result created by rule GL_MAGR_ADD_UA_CULT Result created by rule GL_MAGR_ADD_UA_CULT1 Performed By: #### 1 [id number], [id number] ####[facility] (DEFAULT)[address] [place] [address]64 Glucose (U) [Mass/Vol] Negative Normal [facility] Comment on above: Performed By: #### 1 [id number], [id number] ####[facility] (DEFAULT)[address] [place] [address] Ketones Ql (U) Negative [facility] Comment on above: Performed By: #### 1 [id number], [id number] ####[facility] (DEFAULT)[address] [place] [address]45 Micro? Indicated Invalid Interpretation Code [facility] Comment on above: Result Comment: Resu lt created by rule GL_MAGR_ADD_UA_MICRO Performed By: #### 1 [id number], [id number] ####[facility] (DEFAULT)[address] [place] [address]292 UA Bilirubin Negative Normal [facility] Comment on above: Performed By: #### 1 [id number], [id number] ####[facility] (DEFAULT)[address] [place] [address]56 UA Blood MODERATE Abnormal NEGATIVE [facility] Comment on above: Performed By: #### 1 [id number], [id number] ####[facility] (DEFAULT)[address] [place] [address] UA Clarity CLEAR Normal CLEAR [facility] Comment on above: Performed By: #### 1 [id number], [id number] ####[facility] (DEFAULT)[address] [place] [address]155 UA Leuk Est Negative Normal NEGATIVE [facility] Comment on above: Performed By: #### 1 [id number], [id number] ####[facility] (DEFAULT)[address] [place] [address] UA Nitrite Negative Normal NEGATIVE [facility] Comment on above: Performed By: #### 1 [id number], [id number] ####[facility] (DEFAULT)[address] [place] [address] UA pH 7.0 Normal 5-8 [facility] Comment on above: Performed By: #### 1 [id number], [id number] ####[facility] (DEFAULT)[address] [place] [address] UA Protein Negative Normal NEGATIVE [facility] Comment on above: Performed By: #### 1 [id number], [id number] ####[facility] (DEFAULT)[address] [place] [address] UA Spec Grav <=1.005 Normal 1.001-1.035 [facility] Comment on above: Performed By: #### 1 [id number], [id number] ####[facility] (DEFAULT)[address] [place] [address] UA Urobilinogen 0.2 mg/dL Normal 0.2-1.0 [facility] Comment on above: Performed By: #### 1 [id number], [id number] ####[facility] (DEFAULT)[address] [place] [address] Urine Source Clean Catch Normal [facility] Comment on above: Performed By: #### 1 [id number], [id number] ####[facility] (DEFAULT)[address] [place] [address] US 1st Trimesteron 08-11-2022 US 1st Trimester EXAM: US 1st Trimester HISTORY: vaginal bleeding, 7 weeks COMPARISON: 08/08/2022. TECHNIQUE: Ultrasound obstetrical first trimester. FINDINGS: Single intrauterine gestation which has migrated into the lower uterine segment. No cardiac activity is identified. Yolk sac is present. Iron Post-rump length measurement of 1.1 cm yielding estimated [...] Signature): Jori Churchill 08/11/22 4:11 pm Technologist: [facility] Transvaginalon 08-11-2022 US Transvaginal EXAM: US 1st Trimester HISTORY: vaginal bleeding, 7 weeks COMPARISON: 08/08/2022. TECHNIQUE: Ultrasound obstetrical first trimester. FINDINGS: Single intrauterine gestation which has migrated into the lower uterine segment. No cardiac activity is identified. Yolk sac is present. Iron Post-rump length measurement of 1.1 cm yielding estimated [...] Churchill 08/11/22 4:11 pm Technologist: GANESH Myers [facility] hCG Quantitativeon hCG Quantitative 4616.0 mIU/mL High 0.0-0.6 [facility] Comment on above: Result Comment: Post -Menopausal Reference Range is: 0.1-11.6 mIU/mL Performed By: #### 1 [id number] ####[facility] (DEFAULT)[address] [place] [address] US PREG TVon 08-08-2022 US PREG TV [...] by: CHRISTIAN KATE Date: 2022-08-08 16:56 Normal [facility] Coding Summaryon 06-19-2022 Coding Summary HTMLBase 64 LsmotbbvFVc1gPf+PGhl YWQ+ZG5BRNQpN48kbHLo gJ9SU0pUKW2ZMLIINBIV WI3WAX9neTP1ILkgO4Mx biAv XlgbsYMvMH40RLe6HYS9 eOkmFDfekY4tzDNkT7f2 DtViDS66uL39JAkvKMLf BcD9TbMazrzojFWl K5ujPlWuyALfArb+PHRh YmxlIHdpZHRoPScxMDAl UtLvjTarRZ1hOp2gIYIa LWNvbGxhcHNlOiBj o9knAPOmRXpnKY4ojKsc S5XinLF0VFPvy2t1Vg27 dHI+HRFhFDV1wMxiSGjh t809CpJsa6gyXNA0 pZGeWNihKBB8Y22ga1T4 PAGaFZFuKEN4fNC3hS3o gEslzwgpE2HpeTUcAoK6 HJC7qYIksI5nrXwf qnxcrD5ySjq+H73SXT0V ASDILG9IWzp8G8YpKayh dHI+MT83TQQtEB20fBGc cMGml9zbdYy0UxDf GHZbXHY1qAdmMIcrl6Jp ELMvC79huBKzz7F2IIPk fVvdbPDhJdUlvRA9qR3f UQkbbtufv4sxfzrc Hxnwa5nqnt58mI75M70r ORgoAGYtNTF9JPTwULKw bZavcs6vbE0sLu1+IDxj m8ltt0tffYg8MrAv ZCBatiBdkAqrNUK4v6Sw Qk97R6JamLeis7AjKxs5 fv71rNEtt7C4tHA0CYeq WOQijF9gBUumXnE5 VWJmUdTwnG99sTOeBRdm Oy7drQaqyCkpBQ1nARAq tmtbLNMbpX8eSBVzjCBa eCmvBC7yJQMyyepq u753IdUhBAZ1WPPpcTQw I9UmyX7vUcZxJMXpBTZp M8QetMJcUAagJ615ZKpz SyZ4JKXszeHpJ4Np KZHdrNrzSmD6v3O6Xa7W m1OaerbhLZS0WWxzTACw DqT3OzDrWpE6M8DyRjv8 SKDehXphLJ4cR5Ab ZKTiiwirhkiitZC8GQXj IGIvhT87qPPpJXfwEx0l w3O3j330RZDmHEGcnF00 Ad2iqSknUPPvhSIS aR5iwxhip1bmdvgoQaWp IWCiJNm4UFd3WKPpcPvs AbDzNDB3RfG2CMV0lEJo pR1glIcfxzunrX8t Oyc+M19cxY2uEKT9CZW4 tnzlSFPjfuXlVG08HI38 V3JbNlktcDYdwPT+PGRp yfOmpXzjJS5jAhHf q0nrt5DdJOvlK1FnHJIq PSzsOjh7KKMnJQY1xTE3 tU8zJOFqPRgte4K3nVB1 I9RwtsAlrm3rz7hq QQHxJQyvZ93loZKwf5B7 ZBDihBH8PUSbbPkrSkUk qD45Wpo+YCOetPves4Yh Ggmny9run7nzlXf9 IjMwJSIgdmFsaWduPSJ0 y3BrSb22V47cJTugEECx WPXiPYTsROAvrUiofo0d dS9kQn4+PGNvbCB3 aPE2iO3jTIQwZkF6JMfe T305MmIsbPRpMlncl1jb g0kixLc2AvRlMKGgntEw nGdyZKH1h1CyKj71 Z03xNNgbRZGfEYGcAHFx HQQgdCywca5fnY7hYh5+ ZE8tz6mkcm57jU44iGN+ KHZzDNC4uBwfFCvn XOOzjC5oRSfkHpD8ZZZw ViNcgW54pHMzMVleMu0o iIzwaRsiHP3zFPFqzhdp f300HjXyx1naDLFc wIHzNAumVQK3K37wy3F2 PXGzQXNfCOS2gXC8gI5q bGlnbjogbGVmdDsgdmVy rHieEQowCQcwL856 IHRvcDsnPlBhdGllbnQg PfYaYKr8F7FnJzz0TBGu cIwxLN7cgCZuBWarJn9f jKipfUgcUO6yTAXj msnkl630CjZcz5uwARGc vNWwUPwvGGV1X31er7I7 VCOrQTJyNGP0lDV2eT8w bGlnbjogbGVmdDsg njDfbQsbDYydWYygP151 IHRvcDsnPkJpcnRoIERh pMS2VE56UT95bKLjv7J6 sBU4T7CgZUMipncl wtwllDX5NNErMSXmgH26 In3gaSnuZi2hWTVqDIE0 HAQvqYDiK6ClpH5aCoBv XMOeWRQiM8GdnBLh XHhiQ052LCdtStQ5RLJz qwBrR4ZsTCHtlEklHtM6 l4D0Im7OE8T6TS77FQ60 yRPgp8T6eXE1M2Nw FMJnwwkwmewzxTW2DDAu VGEduA33Sm5uxQjzXm2w VUArHNK7BXWvxYRdN9Yg zS4hMmFcRJHgRMFm R2HuiGLnXXggB769KVvp XyR6CVMutjYwI3KlFJQw hVslYcN9o7Q0Ee2HEHn6 HH34EE85jYGql4H4 mVL0C7GyRHIhefrsmrbb xYV0SFTwGGZtuY95Rc0l fHtoOx5iGALsSWX1PONs wVMhG0HhiS9aAoMa YGZzVIDqH6VvwMWxASlb N521RCbgAoL3JPVxscZm K2CxLYJuqWerAtD6p5R1 Ud1FVURoQR20FYM7 sEG4UZ20VC16M9QoXlyx dGFibGU+PHRhYmxlIHdp ZHRoPScxMDAlJyBzdHls AB5fDt7sDEDmUPQk iSlvwMSuCbQoe9iyVDHk IPobMF5xjPdsK3EfyXH6 HGAzf9g1Op86G46sB6Xh dXA+VGAheAL3pXP6 aD3tEzJyNiO6EBafN055 UvMluDFmEntjo3nvs7vi mNm8IqA6QXObtzQclJfe QFG2x4LqLr16T05y IHdpZHRoPSIxNSUiIHZh kGsxfk8pfL0mNr0+PGNv tIN1vBG2yV1fXxYqWgH6 XRzbO025PfPtrBZu Dlbvo4esa5iyxQm4AcGj AXYgenMkbEinKJO4b9Oz Tg44D8HxhMxqv1EhMpp3 wa16sBCpo4E9pCB6 K4EdBQTkedonhRQgdEff AZ5sAVGevgfgLNMxzA7p USYaN3n4XvWwDbN3DMje J0WdwhO6SAXnpYFx CIicHIH2A02ks7X9UJGr JBSjLHH4rMD8xB9kvDtf bjogbGVmdDsgdmVydGlj FGodTDulO056MUFx iBirJWFehP2eUGIwcLDb pRifEH2hRLMhuizkUunN TEJFUlQsIFNIRUxCWSBM HPBZGtE8P0OtBra0 QLBplBjaQE9meQHiZEkx It5gtEaxdEbgAU2uNYTm vrbdKVObdD7hXQYgwNWu hPzlRO8nYVTrqnje k918ZgKaGHC1MENuiEXv C6ZhwI8yRtDfEMVcGNBf Z4CtiSMxCNmyG127HLtn FbT1GPCxwxEnY9Kj ALXuiQdrPzR0y5M7Li9r Go1rSj6vSPHfCV39UY50 eYFng0I9qOG2X4RcOXUg jfcufycnvYD6IHYj VQNafN03jQUtOOkeUu6h k3J6c684EXYjTUQswU41 Qn7xeKioLCPpuUCLaN8l kxiby8sgokgxGcLy UHBjUMn8XVq7BJHpiWvb PwAdUAP3WzD0EMM4bYVw pN0lsZwspbyduI1nVjy+ ZpZtELAwucV3P2Wf Epp0NAZikKspPA2xiVTh DSvaVy2iwMfyhIepNT1t ZYFjbmwpIMTloC2lUINh mFGtpReaPX9uNRAi efqsi309NxMdVXZ3PHNj vWRlU5YxzN4eJyVmTMPj KHSeY9CkiLSvJJzoN591 JQfhFkC5AXRwmuKj R3MeENHalYouQaO6q2E2 Wp7AGM8WRAU5G5CjJek1 HRZpoGkwNH8cnXUtJEqj Nw5dsJeivIpdTN1y LRJtamswJPDhcK3aNSOj xZYccHmjFN4vGAWysfnh k073YvPoWRX7RKNvnWCn H6RaxJ1fVsUwDUGe ESMbW8LlnESkCTdvD637 TTruAsV1EJCqffUqS8Ik WZHusNxtMxR0v0S7Am4U UDwvdGQ+JV72ja20 F9LyOdcjDal7ORFcAEX9 mCY3nC1jMVEmMKeaf2S9 lOV1A1MbxzHzjg1ud9og FAAlFUcoT38gyEXk s1Q5CILvdWL5CEElaWvg QgHfzQ73Neq+PGNvbGdy k1RqTgwxo5lyl4rcyAx8 IjMwJSIgdmFsaWdu ERB5a3QmEy53R36kRHuj ZHRoPSIzMCUiIHZhbGln qk5kaW7qNe0+PGNvbCB3 bVM3fA4rPbRqVeW8 EYhiG619NuAfxHHqUejv c6ihe8utyTt5ZvPbJYXi zgRptXjtDVI6j1LfCc39 D2XgiPhql3JcJru4 hl34cQMng8Z5cUT6J9Mj BBQcsgqelSEhfAxyPM0z PEGvtbygOHPbwJ4bVHKd A8n6ErAoIrJ7LEtr I7DckdH0FEAvsQEbTMXe fYQPaV2mfgctl0lltsjl HaYdHKGyCWk2ORy5TZWi qTsxJyIsYCQ5FhH1 TAF0sEOdlR5mqXdylpzb iU3kOjk+MDh0f0mknWKh GU4hjDA3MQ38DJ27yQNa h1K1oEF0O3ZcSHHs yvamsgwkdBI1OZFuZBDd aG51Gr6cxKrvGy5mNKZy XYO9JENkdKJxU1CmbS6a UsJfPPKxXHAhT0Rz zQBoHGziF790CCewPcX5 MRElhrIxB8WhOMIyaDiv HdW4u5O5Dy1CHJ16TN95 IT70fDJcl1Q7jXH7 J5QeHSFpxocdjhagfJR2 YJSqANYekI58Pm4ncYfv Lh2jMRUnJKT9RIAhcDTl F9WrfY8sDlBaBZCi GGXeT0LfqXTsIGrcD439 XXbrTeE3QVUifnQeX9Ft QQKkvFdgPvK1w7F2Iv8X Zf59AA82AM20fLAb e2B9fHJ2B6OwNXCfswkd njnygME7YHJxFWYjpG46 Fu8ngOvbBn4nXYXkJGR6 KSYhxFBgG5RtpL0b TwRnRGPmANMlS9JgyLZs BYoiG266XMlyIoA3TQEc cqAkS4PoSPQhdLzlIbU3 c0P5Ly8IJKfoavl3 M8IgQgsrnOF+HD02WEXs XU26uJSooCIgq7bokFk8 UjSaEYRwPTU8gYiyYTsg n5CvPDVmY67zzCNg c2U (more content not included)... Normal [facility] C Throaton 06-14-2022 C Throat Ordered by Discern. Normal throat jonny isolated No pathogens isolated Normal [facility] Comment on above: Performed By: #### 1 [id number] #### [facility] (DEFAULT) [address] [place] [address] ED Clinical Summaryon 2022 ED Clinical Summary [facility] ? Urgent Care [address] [place], [place] [id number] Clinical Summary PERSON INFORMATION Name: LIA DESAI Age: 21 Years Sex: FEMALE : 2000 MRN: Acct#: Visit Reason: UC - Sore Throat; UC - Body Aches; SORE THROAT, COUGH, BODY ACHES Arrival: 06/12/2022 16:17:17 Discharge: 06/12/2022 17:23:00 LOS: 000 01:06 Check In: 06/12/2022 16:17:17 Checkout: 06/12/2022 17:23:00 Address: [address] [place], [place] [id number] PCP: Provider, None PROVIDER INFORMATION Provider Role Assigned Unassigned Birdie James TANK WASHER Nurse 06/12/2022 16:19:28 Nelson Sharma PA-C ED PA 06/12/2022 16:22:15 VITALS INFORMATION Vital Sign Triage Latest Temperature Tympanic Temperature Temporal Artery Pulse Rate O2 Sat 98 % 98 % Respiratory Rate Blood Pressure /76 mmHg /76 mmHg MEDICAL INFORMATION Medications Given: Allergy Information: Adhesive Bandage; Zithromax PHYSICIAN DOCUMENTATION DISCHARGE INFORMATION: Discharge Disposition: Home Discharge Location: Home PATIENT EDUCATION INFORMATION Instructions: Cough, Adult, Rkxt-zm-Eegd; Pharyngitis, Qokc-qh-Vuqj Follow-Up: With: Address: When: None Provider [address] [place] [address] Within 1 week Comments: Please follow-up with your primary care provider, call the office schedule an appointment to be seen in a week or sooner for continued care, you will be notified with your results, please take as Tessalon Perles as prescribed, take fpcj-zhj-mvpqdlk ibuprofen and Tylenol as needed for fevers, body aches, or headaches. Drink plenty of water to stay hydrated, and return back to the urgent care center for any worsening symptoms, concerns, or complications. DIAGNOSIS: 1:Pharyngitis; 2:Cough Patient Understands: Yes - Patient/family/careg iver verbalizes understanding of instructions given Comment: Normal [facility] ED Patient Summaryon 023 ED Patient Summary [facility] ? Urgent Care [address] [place] [address] [place] [address] PATIENT DISCHARGE INSTRUCTIONS Patient Information Name: LIA DESAI Age: 21 Years Date of : 2000 Reason For Visit: UC - Sore Throat; UC - Body Aches; SORE THROAT, COUGH, BODY ACHES Arrival Time: 06/12/2022 16:17:17 Primary Care Physician: Provider, None Attending Physician: Nelson Sharma PA-C Comment: Patient Education With: Address: When: None Provider [address] [place] [id number] Within 1 week Comments: Please follow-up with your primary care provider, call the office schedule an appointment to be seen in a week or sooner for continued care, you will be notified with your results, please take as Tessalon Perles as prescribed, take pwzq-hmg-odtwbva ibuprofen and Tylenol as needed for fevers, [...] these instructions at home: Medicines ? Take jrqv-vma-bgwnvat and prescription medicines only as told by [...] things can cause a cough. ? Take hihm-dkb-tzdiuke and prescription medicines only as told by [...] provider. Document Revised: 05/13/2020 Document Reviewed: 04/13/2019 Onsite Care Patient Education ? 2021 [employer]. Pharyngitis Pharyngitis is a sore throat (pharynx). [...] Symptoms may (more content not included)... Normal [facility] Strep Aon 06-12-2022 Strep procedure control Pass Normal [facility] Comment on above: Performed By: #### 1 [id number] #### [facility] (DEFAULT) [address] [place] [address] Streptococcus A Negative Normal Negative [facility] Comment on above: Performed By: #### 1 [id number] #### [facility] (DEFAULT) [address] [place] [address] Urgent Care [facility] 023 Urgent Care Record [facility] ? Urgent Care [address] [place] [address] PATIENT DISCHARGE INSTRUCTIONS Patient Information Name: LIA DESAI Age: 21 Years Date of : 2000 [facility]: [id number] Reason For Visit: UC - Sore Throat; UC - Body Aches; SORE THROAT, COUGH, BODY ACHES Arrival Time: 06/12/2022 16:17:17 Primary Care Physician: Provider, None Attending Physician: Nelson Sharma PA-C Comment: Visit Diagnosis: Diagnoses This Visit Cough (R05.9) Pharyngitis (J02.9) UC - Body Aches ([id number]) UC - Sore Throat ([id number]) If you received any narcotics, sedation, or [...] documents With: Address: When: None Provider [address] [place] [address] Within 1 week Comments: Please follow-up with your primary care provider, call the office schedule an appointment to be seen in a week or sooner for continued care, you will be notified with your results, please take as Tessalon Perles as prescribed, take mgno-yjm-poyltdo ibuprofen and Tylenol as needed for fevers, body aches, or headaches. Drink plenty of water to stay hydrated, and return back to the urgent care center for any worsening symptoms, concerns, or complications. Medication Information: The exam and treatment you received today in the [facility] were for an urgent problem and are not intended as complete care. It is important for you to follow up with a doctor, nurse practitioner, or physician?s child development assistant for ongoing care. If your symptoms [...] so we can reach you if necessary. [facility] has provided you with a complete list of medications post discharge. Please inform your cotton ball machine tender/provider of your visit and for further instruction on these medications. Any specific questions regarding your chronic medications and dosages should be discussed with your primary care physician(s) and/or pharmacist. New Medications [facility], [place] [id number], [phone] benzonatate (Tessalon Perles 100 mg oral capsule) [...] these instructions at home: Medicines ? Take axbq-aqa-ujfdiuu and prescription medicines only as told by your doctor. (more content not included)... Normal [facility] US PELVIS AND TRANSVAGon US [...] by: ANGELA SCOTT Date: 2022-06-04 06:57 Normal [facility] US PREG TVon 05-16-2022 US PREG [...] by: CHRISTIAN KATE Date: 2022-05-16 18:15 Normal [facility] HEP B SURFACE ANTIGEN SCREEN on 04-20-2022 HBsAg Screen Negative Normal Negative [facility] Comment on above: Performed By: #### H BSANS #### [facility] [address] [address] [address] Jeronimo Melgar HEPATITIS C VIRUS AB W/ REFL EX QUANTon 04-20-2022 HCV AB <0.1 Normal 0.0-0.9 [facility] Comment on above: Performed By: #### H CVPCRR #### [facility] [address] [address] [address] Jeronimo Melgar Interpretation: Comment Normal [facility] Comment on above: Result Comment: Nega tive Not infected with HCV, unless recent infection is suspected or other evidence exists to indicate HCV infection. Performed By: #### H CVPCRR #### [facility] [address] [place] [address] Dr. Jeronimo Melgar HIV 1 AND 2 WITH REFLEXon HIV Screen 4th Generation wRfx Non-Reactive Normal Non Reactive [facility] Comment on above: Result Comment: HIV Negative HIV-1/HIV-2 antibodies and HIV-1 p24 antigen were NOT detected. There is no laboratory evidence of HIV infection. Performed By: #### H IV12 #### [facility] [address] [place] [address] Dr. Jeronimo Melgar RPR QUANTon 04-20-2022 Rapid Plasma Reagin, Quant Non-Reactive Normal NonRea<1:1 [facility] Comment on above: Result Comment: Plea se Note: This test does not meet current guidelines for screening and diagnosis of syphilis. This test is intended for following treatment response in patients being treated for syphilis infection. To screen for syphilis infection, a reflex cascade that includes both RPR and a treponema-specific assay should be utilized, such as Treponema pallidum (Syphilis) Screening [place] (861707) or Rapid Plasma Reagin (RPR) Test With Reflex to Quantitative RPR and Confirmatory Treponema pallidum Antibodies (428740). Performed By: #### R PRQ #### [facility] [address] [place] [address] Dr. Jeronimo Melgar RUBELLA AB IGGon 04-20-2022 Rubella Antibodies, IgG 1.85 index Normal Immune >0.99 [facility] Comment on above: Result Comment: Non- immune <0.90 Equivocal 0.90 - 0.99 Immune >0.99 Performed By: #### B OX #### [facility] [address] [place] [address] Dr. Jeronimo Melgar BOX TEST SENT OUTon 04-19-19 23 SENT TO REF LAB 04/19/2022 Normal [facility] Comment on above: Performed By: #### B OX #### [facility] [address] [place] [address] Dr. Jeronimo Melgar CBC AUTO DIFFon 04-19-2022 BASO # 0.1 103/ul Normal 0.0-0.1 [facility] Comment on above: Performed By: #### B OX #### [facility] [address] [place] [address] Dr. Jeronimo Melgar Basophils/100 WBC (Bld) 0.5 % Normal 0.2-2.0 [facility] Comment on above: Performed By: #### B OX #### [facility] [address] [place] [address] Dr. Jeronimo Melgar EO # 0.1 103/ul Normal 0.0-0.7 [facility] Comment on above: Performed By: #### B OX #### [facility] [address] [place] [address] Dr. Jeronimo Melgar Eosinophils/100 WBC (Bld) 0.7 % Critically low 0.9-7.0 [facility] Comment on above: Performed By: #### B OX #### [facility] [address] [place] [address] Dr. Jeronimo Melgar Erythrocyte distribution width (RBC) [Ratio] 12.8 % Normal 11.0-15.0 [facility] Comment on above: Performed By: #### B OX #### [facility] [address] [place] [address] Dr. Jeronimo Melgar Hematocrit (Bld) [Volume fraction] 43.7 % Normal 36.0-48.0 [facility] Comment on above: Performed By: #### B OX #### [facility] [address] [place] [address] Dr. Jeronimo Melgar Hemoglobin (Bld) [Mass/Vol] 13.1 g/dL Normal 12.0-16.0 [facility] Comment on above: Performed By: #### B OX #### [facility] [address] [place] [address] Dr. Jeronimo Melgar IG # 0.02 10e3/ul Normal 0.00-0.03 [facility] Comment on above: Performed By: #### B OX #### [facility] [address] [place] [address] Dr. Jeronimo Melgar IG % 0.2 % Normal 0.0-0.5 [facility] Comment on above: Performed By: #### B OX #### [facility] [address] [place] [address] Dr. Jeronimo Melgar LYMPH # 2.6 103/ul Normal 1.2-3.8 [facility] Comment on above: Performed By: #### B OX #### [facility] [address] [place] [address] Dr. Jeronimo Melgar Lymphocytes/100 WBC (Bld) 27.3 % Normal 20.5-60.0 [facility] Comment on above: Performed By: #### B OX #### [facility] [address] [place] [address] Dr. Jeronimo Melgar MANUAL DIFF REQ NO Normal [facility] Comment on above: Performed By: #### B OX #### [facility] [address] [place] [address] Dr. Jeronimo Melgar MCH (RBC) [Entitic mass] 27.7 pg Normal 26.7-34.0 [facility] Comment on above: Performed By: #### B OX #### [facility] [address] [place] [address] Dr. Jeronimo Melgar MCHC (RBC) [Mass/Vol] 30.0 g/dL Normal 29.9-35.2 [facility] Comment on above: Performed By: #### B OX #### [facility] [address] [place] [address] Dr. Jeronimo Melgar MCV (RBC) [Entitic vol] 92.4 fL Normal 81.0-99.0 [facility] Comment on above: Performed By: #### B OX #### [facility] [address] [place] [address] Dr. Jeronimo Melgar MONO # 0.8 103/ul Normal 0.3-0.8 [facility] Comment on above: Performed By: #### B OX #### [facility] [address] [place] [address] Dr. Jeronimo Melgar Monocytes/100 WBC (Bld) 7.8 % Normal 1.7-12.0 [facility] Comment on above: Performed By: #### B OX #### [facility] [address] [place] [address] Dr. Jeronimo Melgar NEUT # 6.1 103/ul Normal 1.4-6.5 [facility] Comment on above: Performed By: #### B OX #### [facility] [address] [place] [address] Dr. Jeronimo Melgar Neutrophils/100 WBC (Bld) 63.5 % Normal 43.0-75.0 [facility] Comment on above: Performed By: #### B OX #### [facility] [address] [place] [address] Dr. Jeronimo Melgar Platelet mean volume (Bld) [Entitic vol] 10.7 fL Normal 9.5-13.5 [facility] Comment on above: Performed By: #### B OX #### [facility] [address] [place] [address] Dr. Jeronimo Melgar PLT 399 103/ul Normal 150-450 [facility] Comment on above: Performed By: #### B OX #### [facility] [address] [place] [address] Dr. Jeronimo Melgar RBC 4.73 106/ul Normal 4.20-5.40 [facility] Comment on above: Performed By: #### B OX #### [facility] [address] [place] [address] Dr. Jeronimo Melgar WBC 9.6 103/ul Normal 4.0-11.0 [facility] Comment on above: Performed By: #### B OX #### [facility] [address] [place] [address] Dr. Jeronimo Melgar CULTURE URINEon 04-19-2022 CULTURE URINE Culture Observations: LIGHT GROWTH OF MIXED GENITAL JONNY. NO POTENTIAL PATHOGENS SEEN. Normal [facility] Comment on above: Performed By: #### B OX #### [facility] [address] [place] [address] Dr. Jeronimo Melgar DRUG SCREEN RAPID (URINE)on 04-19-2022 AMP Negative Normal NEGATIVE [facility] Comment on above: Performed By: #### H IV12 #### [facility] [address] [place] [address] Dr. Jeronimo Melgar BAR Negative Normal NEGATIVE [facility] Comment on above: Performed By: #### H IV12 #### [facility] [address] [place] [address] Dr. Jeronimo Melgar BUP Negative Normal NEGATIVE [facility] Comment on above: Performed By: #### H IV12 #### [facility] [address] [place] [address] Dr. Jeronimo Melgra BZO Negative Normal NEGATIVE [facility] Comment on above: Performed By: #### H IV12 #### [facility] [address] [place] [address] Dr. Jeronimo Melgar KRISTINA Negative Normal NEGATIVE [facility] Comment on above: Performed By: #### H IV12 #### [facility] [address] [place] [address] Dr. Jeronimo Melgar CUT-OFFS SEE BELOW Normal [facility] Comment on above: Result Comment: AMP [...] ng/mL Performed By: #### H IV12 #### [facility] [address] [place] [address] Dr. Jeronimo Melgar DRUG CUT HEADER DRUG CLASS TEST SYSTEM CUT-OFF CONCENTRATIONS ARE FOLLOWS: Normal [facility] Comment on above: Performed By: #### H IV12 #### [facility] [address] [place] [address] Dr. Jeronimo Melgar mAMP Negative Normal NEGATIVE [facility] Comment on above: Performed By: #### H IV12 #### [facility] [address] [address] [address] Jeronimo Melgar MTD Negative Normal NEGATIVE [facility] Comment on above: Performed By: #### H IV12 #### [facility] [address] [address] [address] Jeronimo Melgar OPI Negative Normal NEGATIVE [facility] Comment on above: Performed By: #### H IV12 #### [facility] [address] [address] [address] Jeronimo Melgar OXY Negative Normal NEGATIVE [facility] Comment on above: Performed By: #### H IV12 #### [facility] [address] [place] [address] Dr. Jeronimo Melgar PCP Negative Normal NEGATIVE [facility] Comment on above: Performed By: #### H IV12 #### [facility] [address] [address] [address] Jeronimo Melgar PPX Negative Normal NEGATIVE [facility] Comment on above: Performed By: #### H IV12 #### [facility] [address] [address] [address] Jeronimo Melgar TCA Negative Normal NEGATIVE [facility] Comment on above: Performed By: #### H IV12 #### [facility] [address] [address] [address] Jeronimo Melgar THC Negative Normal NEGATIVE [facility] Comment on above: Performed By: #### H IV12 #### [facility] [address] [place] [address] Dr. Jeronimo Melgar GLYCOHEMOGLOBIN A1Con 2022 ADA RECOMMENDATION SEE BELOW Normal [facility] Comment on above: Result Comment: ADA RECOMMENDED LIMIT 4.0 - 6.0 ADA THERAPEUTIC TARGET < 7.0 ACTION SUGGESTED > 7.0 Performed By: #### A 1C #### [facility] [address] [address] [address] Jeronimo Melgar Glucose [Mass/Vol] 100 mg/dL Normal [facility] Comment on above: Performed By: #### A 1C #### [facility] [address] [place] [address] Dr. Jeronimo Melgar HbA1c (Bld) [Mass fraction] 5.1 % Normal 4.5-6.2 [facility] Comment on above: Performed By: #### A 1C #### [facility] [address] [place] [address] Dr. Jeronimo Melgar TYPE AND SCREENon 04-19-2022 TYPE AND SCREEN Negative Normal [facility] Comment on above: Performed By: #### B OX #### [facility] [address] [place] [address] Dr. Jeronimo Melgar CBC AUTO DIFFon 04-02-2022 BASO # 0.0 103/ul Normal 0.0-0.1 [facility] Comment on above: Performed By: #### C BC #### [facility] [address] [place] [address] Dr. Jeronimo Melgar Basophils/100 WBC (Bld) 0.3 % Normal 0.2-2.0 [facility] Comment on above: Performed By: #### C BC #### [facility] [address] [place] [address] Dr. Jeronimo Melgar EO # 0.0 103/ul Normal 0.0-0.7 [facility] Comment on above: Performed By: #### C BC #### [facility] [address] [place] [address] Dr. Jeronimo Melgar Eosinophils/100 WBC (Bld) 0.2 % Critically low 0.9-7.0 [facility] Comment on above: Performed By: #### C BC #### [facility] [address] [place] [address] Dr. Jeronimo Melgar Erythrocyte distribution width (RBC) [Ratio] 12.9 % Normal 11.0-15.0 [facility] Comment on above: Performed By: #### C BC #### [facility] [address] [place] [address] Dr. Jeronimo Melgar Hematocrit (Bld) [Volume fraction] 37.5 % Normal 36.0-48.0 [facility] Comment on above: Performed By: #### C BC #### [facility] [address] [address] [address] Jeronimo Melgar Hemoglobin (Bld) [Mass/Vol] 12.4 g/dL Normal 12.0-16.0 [facility] Comment on above: Performed By: #### C BC #### [facility] [address] [address] [address] Jeronimo Melgar IG # 0.05 10e3/ul Critically high 0.00-0.03 [facility] Comment on above: Performed By: #### C BC #### [facility] [address] [address] [address] Jeronimo Melgar IG % 0.3 % Normal 0.0-0.5 [facility] Comment on above: Performed By: #### C BC #### [facility] [address] [address] [address] Jeronimo Melgar LYMPH # 2.0 103/ul Normal 1.2-3.8 [facility] Comment on above: Performed By: #### C BC #### [facility] [address] [address] [address] Jeronimo Melgar Lymphocytes/100 WBC (Bld) 14.1 % Critically low 20.5-60.0 [facility] Comment on above: Performed By: #### C BC #### [facility] [address] [address] [address] Jeronimo Melgar MANUAL DIFF REQ NO Normal [facility] Comment on above: Performed By: #### C BC #### [facility] [address] [address] [address] Jeronimo Melgar MCH (RBC) [Entitic mass] 27.9 pg Normal 26.7-34.0 [facility] Comment on above: Performed By: #### C BC #### [facility] [address] [address] [address] Jeronimo Melgar MCHC (RBC) [Mass/Vol] 33.1 g/dL Normal 29.9-35.2 [facility] Comment on above: Performed By: #### C BC #### [facility] [address] [address] [address] Jeronimo Melgar MCV (RBC) [Entitic vol] 84.3 fL Normal 81.0-99.0 [facility] Comment on above: Performed By: #### C BC #### [facility] [address] [address] [address] Jeronimo Melgar MONO # 0.6 103/ul Normal 0.3-0.8 [facility] Comment on above: Performed By: #### C BC #### [facility] [address] [address] [address] Jeronimo Melgar Monocytes/100 WBC (Bld) 4.0 % Normal 1.7-12.0 [facility] Comment on above: Performed By: #### C BC #### [facility] [address] [place] [address] Dr. Jeronimo Melgar NEUT # 11.7 103/ul Critically high 1.4-6.5 [facility] Comment on above: Performed By: #### C BC #### [facility] [address] [place] [address] Dr. Jeronimo Melgar Neutrophils/100 WBC (Bld) 81.1 % Critically high 43.0-75.0 [facility] Comment on above: Performed By: #### C BC #### [facility] [address] [place] [address] Dr. Jeronimo Melgar Platelet mean volume (Bld) [Entitic vol] 10.2 fL Normal 9.5-13.5 [facility] Comment on above: Performed By: #### C BC #### [facility] [address] [place] [address] Dr. Jeronimo Melgar PLT 420 103/ul Normal 150-450 [facility] Comment on above: Performed By: #### C BC #### [facility] [address] [place] [address] Dr. Jeronimo Melgar RBC 4.45 106/ul Normal 4.20-5.40 [facility] Comment on above: Performed By: #### C BC #### [facility] [address] [place] [address] Dr. Jeronimo Melgar WBC 14.4 103/ul Critically high 4.0-11.0 [facility] Comment on above: Performed By: #### C BC #### [facility] [address] [place] [address] Dr. Jeronimo Melgar ER URINE PROFILEon 2 Bilirubin Ql (U) Negative Normal NEGATIVE [facility] Comment on above: Performed By: #### B OX #### [facility] [address] [place] [address] Dr. Jeronimo Melgar Clarity (U) CLEAR Normal CLEAR [facility] Comment on above: Performed By: #### B OX #### [facility] [address] [place] [address] Dr. Jeronimo Melgar Color (U) YELLOW Normal YELLOW [facility] Comment on above: Performed By: #### B OX #### [facility] [address] [place] [address] Dr. Jeronimo Melgar ERUMarko A micrscopic examination will be performed if indicated. Normal [facility] Comment on above: Performed By: #### B OX #### [facility] [address] [place] [address] Dr. Jeronimo Melgar Glucose Ql (U) Negative Normal NEGATIVE [facility] Comment on above: Performed By: #### B OX #### [facility] [address] [place] [address] Dr. Jeronimo Melgar Hemoglobin Ql (U) Negative Normal NEGATIVE [facility] Comment on above: Performed By: #### B OX #### [facility] [address] [place] [address] Dr. Jeronimo Melgar Ketones Ql (U) >=80 Abnormal NEGATIVE [facility] Comment on above: Performed By: #### B OX #### [facility] [address] [place] [address] Dr. Jeronimo Melgar LEUKOCYTES Negative Normal NEGATIVE [facility] Comment on above: Performed By: #### B OX #### [facility] [address] [place] [address] Dr. Jeronimo Melgar Nitrite Ql (U) Negative Normal NEGATIVE [facility] Comment on above: Performed By: #### B OX #### [facility] [address] [place] [address] Dr. Jeronimo Melgar pH (U) 7.0 [pH] Normal 5-9 [facility] Comment on above: Performed By: #### B OX #### [facility] [address] [place] [address] Dr. Jeronimo Melgar SPEC GRAVITY 1.020 Normal 1.005-<=1.025 [facility] Comment on above: Performed By: #### B OX #### [facility] [address] [place] [address] Dr. Jeronimo Melgar UA PROTEIN TRACE Normal NEGATIVE/ TRACE [facility] Comment on above: Performed By: #### B OX #### [facility] [address] [place] [address] Dr. Jeronimo Melgar UR MICRO IND NOT INDICATED Normal [facility] Comment on above: Performed By: #### B OX #### [facility] [address] [place] [address] Dr. Jeronimo Melgar Urobilinogen Qn (U) 1.0 {Pepito'U}/dL Normal 0.2 - 1. 0 [facility] Comment on above: Performed By: #### B OX #### [facility] [address] [place] [address] Dr. Jeronimo Melgar PROF CHEM 8 (BAS METB)on Anion gap [Moles/Vol] 12.7 mmol/L Normal [facility] Comment on above: Performed By: #### B MP #### [facility] [address] [place] [address] Dr. Jeronimo Melgar Calcium [Mass/Vol] 9.1 mg/dL Normal 8.5-10.1 [facility] Comment on above: Performed By: #### B MP #### [facility] [address] [place] [address] Dr. Jeronimo Melgar Chloride [Moles/Vol] 103 mmol/L Normal 98-107 [facility] Comment on above: Performed By: #### B MP #### [facility] [address] [address] [address] Jeronimo Melgar CO2 [Moles/Vol] 23.9 mmol/L Normal 21.0-32.0 [facility] Comment on above: Performed By: #### B MP #### [facility] [address] [address] [address] Jeronimo Melgar Creatinine [Mass/Vol] 0.78 mg/dL Normal 0.55-1.02 [facility] Comment on above: Performed By: #### B MP #### [facility] [address] [address] [address] Jeronimo Melgar EGFR-AF SURINAMESE >60 Normal >=60 [facility] Comment on above: Performed By: #### B MP #### [facility] [address] [address] [address] Jeronimo Melgar EGFR-NON AF SURINAMESE >60 Normal >=60 [facility] Comment on above: Performed By: #### B MP #### [facility] [address] [address] [address] Jeronimo Melgar Glucose [Mass/Vol] 155 mg/dL Critically high 74-106 [facility] Comment on above: Performed By: #### B MP #### [facility] [address] [address] [address] Jeronimo Melgar Potassium [Moles/Vol] 3.6 mmol/L Normal 3.5-5.1 [facility] Comment on above: Performed By: #### B MP #### [facility] [address] [address] [address] Jeronimo Melgar Sodium [Moles/Vol] 136 mmol/L Normal 136-145 [facility] Comment on above: Performed By: #### B MP #### [facility] [address] [address] [address] Jeronimo Melgar Urea nitrogen [Mass/Vol] 7.0 mg/dL Normal 7.0-18.0 [facility] Comment on above: Performed By: #### B MP #### [facility] [address] [place] [address] Dr. Jeronimo Melgar Urea nitrogen/Creatinine [Mass ratio] 9.0 mg/mg Normal [facility] Comment on above: Performed By: #### B MP #### [facility] [address] [place] [address] Dr. Jeronimo Melgar US PREG TVon 03-28-2022 [...] ANGELA SCOTT Date: 2022-03-28 16:32 Normal [facility] US PELVIS AND TRANSVAGon US PELVIS [...] CHRISTIAN KATE Date: 2021-10-17 16:35 Normal [facility] CHLAMYDIA/GONOCOCCUS MILY (SW AB/URINE/PAPon 10-14-2021 Chlamydia trachomatis, MILY Positive Abnormal Negative [facility] Comment on above: Result Comment: . Performed By: #### C T/NGNA #### [facility] [address] [place] [address] Dr. Jeronimo Melgar Neisseria gonorrhoeae, MILY Negative Normal Negative [facility] Comment on above: Performed By: #### C T/NGNA #### [facility] [address] [address] [address] Jeronimo Melgar VAGINITIS/VAGINOSIS DNA PROB Obed 10-13-2021 Lesa species Negative Normal Negative The [facility] Comment on above: Performed By: #### V AGINT #### [facility] [address] [address] [address] Jeronimo Melgar Gardnerella vaginalis Negative Normal Negative [facility] Comment on above: Performed By: #### V AGINT #### [facility] [address] [address] [address] Jeronimo Melgar Trichomonas vaginalis Negative Normal Negative [facility] Comment on above: Performed By: #### V AGINT #### [facility] [address] [place] [address] Dr. Jeronimo Melgar XR foot LT min 3V*on 022 XR foot LT min 3V* [facility] [place] [address] XRay Report Signed Patient: Lia Desai MR#: [id number] : 2000 Acct:[id number] Age/Sex: 20 / F ADM Date: 07/18/21 Loc: ER Room: Type: [facility] ER Attending Dr: Ordering Provider: Oneil Ricci APRN Date of Service: 07/18/21 XR/XR foot LT min 3V*: Extremity Injury, Lower ([id number]) XR/XR ankle LT min 3V*: Extremity Injury, [...] Brewer Jr., M.D.07/18/2021 6:15 PM Dictation Location: [address] [place] [address] Transcribed By: [facility] 07/18/211814 Dictated By: Bijan Brewer Jr, MD 07/18/211812 Signed By: 07/18/211814 [facility] XR knee RT 4V*on 05-15-2021 XR knee RT 4V* [facility] [place] [address] [place] [address] XRay Report Signed Patient: Lia Desai MR#: [id number] : 2000 Acct:[id number] Age/Sex: 20 / F ADM Date: 05/15/21 Loc: ER Room: Type: [facility] ER Attending Dr: Ordering Provider: Yovani Valle [...] Ana Juan M.D.05/15/2021 8:11 PM Dictation Location: [place] [address] Transcribed By: CYNDEE 05/15/212010 Dictated By: Ana Juan II, MD 05/15/212008 Signed By: 05/15/212010 [facility] Vital Signs Date Time Vital Sign Value Performing Clinician Faci lity 07-18-2021 16:56-0400 Body height 167.64 cm [facility] 07-18-2021 16:56-0400 Body mass index (BMI) [Percentile] Per age and sex 98.9 % [facility] 07-18-2021 16:56-0400 Body mass index (BMI) [Ratio] 44.3 kg/m2 [facility] 07-18-2021 16:56-0400 Body temperature 98.3 [degF] [facility] 07-18-2021 16:56-0400 Body weight 124.6 kg [facility] 07-18-2021 16:56-0400 Diastolic blood pressure 108 mm[Hg] [facility] 07-18-2021 16:56-0400 Heart rate 80 /min [facility] 07-18-2021 16:56-0400 Respiratory rate 18 /min [facility] 07-18-2021 16:56-0400 Systolic blood pressure 162 mm[Hg] [facility] 05-15-2021 19:47-0500 Body height 167.64 cm [facility] 05-15-2021 19:47-0500 Body mass index (BMI) [Percentile] Per age and sex 98.9 % [facility] 05-15-2021 19:47-0500 Body mass index (BMI) [Ratio] 43.7 kg/m2 [facility] 05-15-2021 19:47-0500 Body temperature 98.8 [degF] [facility] 05-15-2021 19:47-0500 Body weight 122.95 kg [facility] 05-15-2021 19:47-0500 Diastolic blood pressure 65 mm[Hg] [facility] 05-15-2021 19:47-0500 Heart rate 75 /min [facility] 05-15-2021 19:47-0500 Respiratory rate 16 /min [facility] 05-15-2021 19:47-0500 SaO2% (BldA) [Mass fraction] 100 % [facility] 05-15-2021 19:47-0500 Systolic blood pressure 144 mm[Hg] [facility] Encounters Encounter Date Encounter Type Care [...] Start: 09-04-2023 End: 09-04-2023 ambulatory ZEKE Clemons [facility] Start: 09-04-2023 End: 09-04-2023 Emergency department patient visit [facility] Start: 08-26-2023 End: 08-26-2023 ambulatory ROBERT JANES Not Available Start: 07-30-2023 End: 07-30-2023 [facility] Start: 07-29-2023 End: 07-29-2023 ambulatory ROBERT JANES Not Available Start: 07-11-2023 End: 07-11-2023 Emergency department patient visit [facility] Start: 07-05-2023 End: 07-05-2023 Emergency department patient visit [facility] Start: 07-01-2023 End: 07-01-2023 ambulatory DAPHNIE TAYO Not Available Start: 06-18-2023 End: 06-18-2023 ambulatory ROBERT JANES Not Available Start: 06-03-2023 End: 06-03-2023 ambulatory ROBERT JANES Not Available Start: 05-26-2023 End: 05-26-2023 Emergency department patient visit Yassine Maldonado Facility:[facility] Start: 05-17-2023 Clinisync Result Encounter Robert Janes DO Work Phone: [facility] External Department Unsolicited Start: 05-17-2023 Clinisync Result Encounter Robert Janes DO Work Phone: [facility] External Department Unsolicited Start: 05-15-2023 End: 05-15-2023 Emergency department patient visit Mamie Moore Facility:[facility] Start: 05-14-2023 Chart abstracting Robert Marrero DO Work Phone: [facility] Start: 05-07-2023 Documentation procedure Leah Hernandez RN [facility] [facility] [employer] [facility] [place] Start: 05-02-2023 End: 05-02-2023 ambulatory ROBERT MARRERO Not Available Start: 04-19-2023 Telephone encounter Leah Hernandez RN [facility] [facility] [employer] [facility] [place] Start: 04-17-2023 Telephone encounter Leah Hernandez RN [facility] [employer] [facility] [place] Start: 04-15-2023 End: 04-15-2023 Emergency department patient visit Yassine Maldonado Facility:[facility] Start: 04-12-2023 End: 04-12-2023 ambulatory Oneil MILLS Facility:[facility] Start: 04-05-2023 Orders Only Leah Hernandez RN [facility] [facility] [place] Comment on above: Nausea and vomiting during (Primary Dx) Start: 03-01-2023 End: 03-01-2023 Emergency department patient visit Tom Kaci Sarah Facility:[facility] Start: 02-26-2023 End: 02-26-2023 ambulatory Errol Martin PAC Facility:[facility] Start: 02-14-2023 End: 02-14-2023 ambulatory DORA MILLS Facility:[facility] Start: 11-15-2022 End: 11-15-2022 Emergency department patient visit None Provider Facility:[facility] Start: 08-25-2022 End: 08-26-2022 ambulatory Alaina Matta CNM Facility:[facility] Start: 08-11-2022 End: 08-11-2022 Emergency department patient visit Adamaris Jaeger PA-C Facility:[facility] Start: 08-08-2022 End: 08-09-[address] BALDOMERO ELLER . Facility:[facility] Start: 06-12-2022 End: 06-12-2022 ambulatory None Provider Facility:[facility] Start: 06-02-2022 End: 06-03-[address] BALDOMERO ELLER . Facility:[facility] Start: 05-18-2022 Encounter for other preprocedural examination DR BALDOMERO ELLER . [facility] Start: 05-17-2022 End: 05-17-[address] [...] LEDESMA Facility:[facility] Start: 03-29-2022 ambulatory [facility] Facility:[facility] Start: 03-28-2022 End: 03-29-[address] BALDOMERO ELLER . Facility:[facility] Start: 10-17-2021 End: 10-18-[address] BALDOMERO ELLER . Facility:[facility] Start: 10-12-2021 End: 10-12-[address] BALDOMERO ELLER . Facility:[facility] Start: 07-18-2021 End: 07-18-2021 Emergency department patient visit [facility] Start: 05-15-2021 End: 05-15-2021 Emergency department patient visit [facility] Procedures Date Procedure Procedure Detail Performing Clinician Start: 05-17-2023 ALL CBC WITH AUTO DIFF Robert Marrero DO Work Phone: Start: 05-15-2021 X-ray of right knee Plan of Treatment Date Care Activity Detail Author Start: 05-15-2028 DTaP,Tdap and Td Vaccines (2 - Td or Tdap) DTaP,Tdap and Td Vaccines (2 - Td or Tdap) [facility] Start: 03-05-2024 Adult BMI Screening Adult BMI Screen ing [facility] Start: 03-05-2024 Tobacco Screening Tobacco Screening [facility] Start: 09-26-2023 Screening for Chlamy driss trachomatis Chlamydia Screening [facility] Start: 06-03-2023 End: 06-03-2023 Patient encounter procedure 06/03/2023 2:10 PM EST Routine [facility] [address] [place] [address] Robert Marrero, DO [address] [place] [address] [facility] Start: 04-17-2023 End: 04-17-2023 ambulatory 04/17/2023 8:30 AM EST Initial [facility] [employer] [facility] [place] [id number] [id number] [facility] [employer] [facility] [place] Start: 12-07-2022 Influenza vaccination Influenza Vacc ine [facility] Start: 2022 Screening for malign ant neoplasm of cervix Pap Smear [facility] Start: 07-18-2021 X-ray of left ankle XR ankle LT min 3V* [facility] Start: 07-18-2021 X-ray of left foot XR foot LT min 3V * [facility] Start: 10-08-2019 Adult BMI Follow Up Plan Adult BMI Follow Up Plan [facility] Start: 2013 [facility] Work Phone: Patient referral [facility] Work Phone: Payers Date Payer Category Payer Medicaid [id number] 2001 Unknown [id number] 2.16.84 0.1.222596.3.579.2.593 2001 Unknown [id number] 2.16.84 0.1.690369.3.579.2.593 2001 Unknown [id number] 2.16.84 0.1.726027.3.579.2.593 2001 Unknown [id number] 2.16.84 0.1.581609.3.579.2.593 2001 Unknown [id number] 2.16.84 0.1.472137.3.579.2.593 2001 Unknown [id number] 2.16.84 0.1.682610.3.579.2.593 2001 Unknown [id number] 2.16.84 0.1.388803.3.579.2.593 2001 Unknown [id number] 2.16.84 0.1.688034.3.579.2.593 2001 Unknown [id number] 2.16.84 0.1.503980.3.579.2.593 2001 Unknown [id number] 2.16.84 0.1.545053.3.579.2.593 2001 Unknown [id number] 2.16.84 0.1.695733.3.579.2.593 2001 Unknown [id number] 2.16.8 40.1.911390.3.579.2.718 2001 Unknown [id number] 2.16.8 40.1.533249.3.579.2.718 2001 Unknown [id number] 2.16.8 40.1.216315.3.579.2.718 2001 Unknown [id number] 2.16.8 40.1.399329.3.579.2.718 2001 Unknown [id number] 2.16.8 40.1.197407.3.579.2.718 2001 Unknown [id number] 2.16.8 40.1.107022.3.579.2.718 2001 Unknown [id number] 2.16.8 40.1.606634.3.579.2.718 2001 Unknown [id number] 2.16.8 40.1.199852.3.579.2.718 2001 Unknown [id number] 2.16.8 40.1.911221.3.579.2.718 2001 Unknown [id number] 2.16.8 40.1.240444.3.579.2.718 2001 Unknown [id number] 2.16.8 40.1.280677.3.579.2.8 2001 Unknown [id number] 2.16.8 40.1.535611.3.579.2.6 2001 Unknown [id number] 2.16.8 40.1.222534.3.579.2.6 2001 Unknown [id number] 2.16.8 40.1.140628.3.579.2.1286 2001 Unknown [id number] 2.16.8 40.1.395788.3.579.2.6 2001 Unknown [id number] 2.16.8 40.1.014424.3.579.2.6 2001 Unknown [id number] 2.16.84 0.1.058631.3.579.2.9 2001 Unknown [id number] 2.16.84 0.1.923595.3.579.2.9 2001 Unknown [id number] 2.16.84 0.1.608081.3.579.2.9 2001 Unknown [id number] 2.16.84 0.1.909638.3.579.2.9 2001 Unknown [id number] 2.16.84 0.1.162324.3.579.2.9 2001 Unknown [id number] 2.16.84 0.1.023721.3.579.2.1259 2001 Unknown [id number] 2.16.84 0.1.847539.3.579.2.1259 2001 Unknown [id number] 2.16.84 0.1.912013.3.579.2.1259 2001 Unknown [id number] 2.16.84 0.1.872060.3.579.2.9 2001 Unknown [id number] 2.16.84 0.1.355136.3.579.2.1259 2001 Unknown [id number] 2.16.84 [id number] 2000 Unknown [id number] 2001 Unknown [id number] 1959 Unknown [id number] Self-pay Self Pay [id number] Social History Date Type Detail Facility Start: 07-18-2021 End: 05-14-2023 Tobacco smoking status NHIS Never smoked tobacco (finding) [facility] Start: 2000 Sex Assigned At Female [facility] History of tobacco use Passive smoker [facility] Start: 08-01-2022 Tobacco use and exposure Smokeless tobacco non-user [facility] Start: 03-05-2023 Alcohol intake Ex-drinker (finding) [facility] Start: 03-05-2023 End: 05-14-2023 History of Social function [facility] Start: 03-05-2023 End: 05-14-2023 Tobacco use panel [facility] Housing Instability Unknown [facility] Start: 08-14-2022 Alcohol Comment social [facility] Start: 2000 Sex Assigned At Not on file [facility] Start: 05-14-2023 Alcohol intake Lifetime non-drinker (finding) [facility] Start: 03-20-2023 [facility] Start: 05-01-2023 Gender identity Identifies as female gender (finding) [facility] Start: 05-01-2023 Sexual orientation Heterosexual (finding) [facility] Clinical Notes 06-12-2022 to 05-26-2023 Leah [...] Keep all follow-up visits. Medicines ? Take deuj-zot-hxghstn and prescription medicines only as told by [...] be an em (more content not included)... [facility] 05-15-2023 Note Education Materials Obstetrics [...] uri tea. ? Taking prescription medicine or goiy-ide-trlvnaj medicine as told by your health care [...] or sour. These include lemonade, uri prabhakar, lemon?[place] soda, ice water, and sparkling water. Things [...] food. The s (more content not included)... [facility] 05-07-2023 History of Presen t illness Narrative Letter sent to patient via [facility] and also to her My Chart regarding her missed OB intake appointment and also her MICHAEL for her Chlamydia. [facility] 04-19-2023 Miscellaneous Notes Called patient to reschedule her IOB intake visit. No answer. Left message to call office to reschedule her appointment. documented in this encounter [facility] 04-19-2023 Telephone encounter Note Called patient to reschedule her IOB intake visit. No answer. Left message to call office to reschedule her appointment. [facility] 04-17-2023 Miscellaneous Notes Patient called for her OB intake per phone. No answer. Left message to call office. documented in this encounter [facility] 04-17-2023 Telephone encounter Note Patient called for her OB intake per phone. No answer. Left message to call office. [facility] 04-15-2023 Note Education Materials Gastroenterology Nausea [...] ? Low-calorie sports drinks. ? Eat bland, gkjx-vp-ntgdvc foods in small amounts as you are able, such as: ? Bananas. ? Applesauce. ? Rice. ? Low-fat (lean) meats. ? [place]. ? Crackers. ? Avoid drinking fluids that have a lot of sugar or caffeine in them. This includes energy drinks, sports drinks, and soda. ? Avoid alcohol. ? Avoid spicy or fatty foods. General instructions ? Take vwdh-hgt-vhqlatr and prescription medicines only as told by your doctor. ? Drink enough fluid to keep your pee (urine) pale yellow. ? Wash your hands often with soap and water for at least 20 seconds. If you cannot use soap and water, use hand cash accountant. ? Make sure that everyone in your [...] doctor about eating and drinking. ? Take fwig-pni-hrsfzih and prescription medicines only as told by your doctor. ? Contact your doctor if your symptoms get worse or you have new symptoms. ? Keep all follow-up visits. This information is not intended to replace advice given to you by your health care provider. Make sure you discuss any questions you have with your health care provider. Document Revised: 09/29/2021 Document Reviewed: 09/29/2021 Onsite Care Patient Education ? [facility] 04-12-2023 Note Patient Education Ma terials [...] these instructions at home: Medicines ? Take uodh-eql-aovcxvj and prescription medicines only as told by your health care provider. Do not use any prescription, dgeu-ngd-voxxrvd, or herbal medicines for morning sickness without [...] provider. Document Revised: 11/07/2020 Document Reviewed: 10/17/2020 Onsite Care Patient Education ? 2022 [employer]. [facility] 03-01-2023 Note Education Materials Pulmonary [...] Follow these instructions at home: ? Take etjj-gmu-yeedvgl and prescription medicines only as told by [...] and water are not available, use hand cash accountant. ? Avoid contact with people who have [...] is easier to cough up. ? Take ynsh-cfr-udjxzpc an (more content not included)... [facility] 02-26-2023 Note Patient Education Ma [...] to help relieve symptoms, such as: ? Zvqi-cpy-dvqodrh cold medicines. ? Cough suppressants. Coughing is [...] other clear broths. General instructions ? Take nesv-pft-nrcsqdk and prescription medicines only as told by [...] and water are not available, use hand cash accountant. ? Avoid touching your mouth, face, eyes, [...] These symptoms may (more content not included)... [facility] 02-14-2023 Note Patient Education Ma [...] elastic wrap to support your hand. ? Rmqc-lce-ovuieut medicines to control pain. Follow these instructions [...] or lying down. General instructions ? Take osmn-svu-eweilon and prescription medicines only as told by [...] Reviewed: 07/13/2021 Elsevier Patient Education ? 2022 [employer] How to Use Cold Therapy Cold [...] on your pr (more content not included)... [facility] 11-15-2022 Note Education Materials Orthopedics [...] by your health care provider. Stretching and vmthb-ee-vrbyqj exercises These exercises warm up your muscles [...] standing, keep y (more content not included)... [facility] 08-11-2022 Note Education Materials Obstetrics [...] these instructions at home: Medicines ? Take kosr-ikq-glyjpuj and prescription medicines only as told by [...] Where to find more information ? The [employer]: acog.org ? U.S. Department of Health and Human Services Office of Women's Health: hrsa.gov/xuwwqx-ixfkqh-iaypno Contact a doctor if: ? You have [...] ? Text the Crisis Text Line at 009470. Summary ? A miscarriage is the loss [...] provider. Document Revised: 09/23/2020 Document Reviewed: 09/23/2020 Onsite Care Patient Education ? 2021 [facility] 06-12-2022 Note Patient Education Ma terials [...] these instructions at home: Medicines ? Take oibb-lxw-igrmcuf and prescription medicines only as told by [...] things can cause a cough. ? Take mtht-wkn-tgdddbm and prescription medicines only as told by [...] provider. Document Revised: 05/13/2020 Document Reviewed: 04/13/2019 Onsite Care Patient Education ? 2021 [employer] Infectious Disease Pharyngitis Pharyngitis is a [...] these instructions at home: Medicines ? Take kpgu-kbq-gdhaiip and prescription medicines only as told by your doctor. ? If you were prescribed an antibiotic medicine, take it as told by your doctor. Do not stop taking the antibiotic even if you start to feel better. ? Use throat loze (more content not included)... [facility] Evaluation note No assessment inform ation available [facility] Work Phone: Evaluation note Diagnosis Nausea and vomiting during - Primary documented in this encounter [facility] System[facility]ructionsNot on filedocumented in this encounter [facility] SystemInstructionsNot on filedocumented in this encounter [facility] Chief Complaint and Reason for Visit [...] Dates NON STAFF Primary Care Provider Active Area Counselor Relationship Specialty Start Date End Date [facility] [address] [place], [place] PCP - General Family Medicine 08/11/18 Area Counselor Relationship Specialty Start Date End Date [facility] [address] [place], [place] PCP - General Family Medicine 08/11/18 Area Counselor Relationship Specialty Start Date End Date [facility] [address] [place], [place] PCP - General Family Medicine 08/11/18 Goals (unrecognized section and content) Goals may be documented in a n alternate sectionNot on filedocumented as of this encounterNot on filedocumented as of this encounterNot on filedocumented as of this encounterNot on filedocumented as of this encounter INFORMATION SOURCE (unrecogn ized section and content) DATE CREATED AUTHOR 07/27/2021 [facility] DATE CREATED AUTHOR AUTHOR'S ORGANIZ ATION 08/16/2022 [facility] DATE CREATED AUTHOR AUTHOR'S ORGANIZ ATION 06/08/2023 [facility] DATE CREATED AUTHOR AUTHOR'S ORGANIZ ATION 09/05/2023 [facility] DATE CREATED AUTHOR AUTHOR'S ORGANIZ ATION 11/30/2023 [facility] dical Specialists EPIC FOR RECORDS PERTAINING TO [...] BE BASED ON THE PRIMARY CLINICAL RECORDS. [employer] provides no warranty or guarantee of the accuracy or completeness of information in this document.
[2023-12-10 12:18] VITALS: BP 125/82; PULSE 78; TEMP 36.9; O2SAT 98
--- NOTE | 2023-12-10 12:18 | PC.NURSE ---
Lia and 5 day old Yasmeen arrive for follow up appointment. Mom has decided to pump and bottle feed infant. She wanted to eat every 45 minutes . reviewed expectations of infant feeding. Lia with VSS and assessment WNL. Perineum inspected and is normal healing. Pumping schedule discussed and sample sent home. Using spectra pump and obtaining 2-3 oz each breast per pump. Does pump every 2-3 hours. Janieie with VSS and assessment WNL. No concerns noted for mom or baby. Family leaves ambulatory, aware of [facility]OM[facility] group and to call for concerns with pumping.
== END 2023-12-10 12:23 | disposition home or self-care (01) ==
LOC: FBCO 08:53
PROVIDERS: Visit Provider Obstetrics & Gynecology
DX: Z39.2 Encounter for routine postpartum follow-up (principal)

== ENCOUNTER 2024-05-15 11:29 | Outpatient (RCR) | payer OTHER, SELFPAY ==
[2024-05-15 12:35] LABS: HCG Quantitative 119 mIU/mL
[2024-05-17 15:28] LABS: HCG Quantitative 280 mIU/mL
== END 2024-06-05 15:04 | disposition home or self-care (01) ==
LOC: LAB 11:29
PROVIDERS: Visit Provider Obstetrics & Gynecology
DX: N92.6 Irregular menstruation, unspecified (principal)
CPT/HCPCS: 36415; 84702

== ENCOUNTER 2024-07-01 11:42 | Outpatient (RCR) | payer OTHER, SELFPAY ==
[2024-07-01 12:32] LABS: HCG Quantitative 22 mIU/mL
[2024-07-03 11:05] LABS: HCG Quantitative 59 mIU/mL
== END 2024-07-06 13:02 | disposition home or self-care (01) ==
LOC: LAB 11:42
PROVIDERS: Visit Provider Obstetrics & Gynecology
DX: N92.6 Irregular menstruation, unspecified (principal); Z87.59 Personal history of other complications of pregnancy, childbirth and the puerperium
CPT/HCPCS: 36415; 84702

== ENCOUNTER 2024-08-18 15:33 | Outpatient (OUT) | payer OTHER, SELFPAY ==
[2024-08-18 17:49] LABS: Basophils Absolute Auto 0.1 10^3/uL (0.0-0.1); Basophils Percent Auto 0.4 % (0.2-2.0); Eosinophils Absolute Auto 0.1 10^3/uL (0.0-0.7); Eosinophils Percent Auto 0.5 % (0.9-7.0); Hematocrit 38.6 % (36.0-48.0); Hemoglobin 12.6 g/dL (12.0-16.0); Immature Granulocytes Abs Auto 0.03 10^3/uL (0.00-0.03); Immature Granulocytes Pct Auto 0.3 % (0.0-0.5); Lymphocytes Absolute Auto 2.9 10^3/uL (1.2-3.8); Lymphocytes Percent Auto 25.7 % (20.5-60.0); Mean Corpuscular HGB Conc 32.6 g/dL (29.9-35.2); Mean Corpuscular Hemoglobin 27.5 pg (26.7-34.0); Mean Corpuscular Volume 84.3 fL (81.0-99.0); Monocytes Absolute Auto 0.9 10^3/uL (0.3-0.8); Monocytes Percent Auto 7.7 % (1.7-12.0); Neutrophils Absolute Auto 7.5 10^3/uL (1.4-6.5); Neutrophils Percent Auto 65.4 % (43.0-75.0); Platelet Count 318 10^3/uL (150-450); Red Blood Count 4.58 10^6/uL (4.20-5.40); Red Cell Distribution Width 13.2 % (11.0-15.0); White Blood Count 11.4 10^3/uL (4.0-11.0)
[2024-08-18 18:09] LABS: BOX Test Reference Lab UNITY; BOX Test Sent Out UNITY BOX
[2024-08-18 18:50] LABS: Estimated Average Glucose 111 mg/dL; Glycohemoglobin A1C 5.5 % (4.5-6.2)
[2024-08-18 21:33] LABS: Amphetamine Screen Urine NEGATIVE (NEGATIVE); Barbiturates Screen Urine NEGATIVE (NEGATIVE); Benzodiazepines Screen Urine NEGATIVE (NEGATIVE); Buprenorphine Screen Urine NEGATIVE (NEGATIVE); Cannabinoid Screen Urine NEGATIVE (NEGATIVE); Cocaine Screen Urine NEGATIVE (NEGATIVE); Methadone Screen Urine NEGATIVE (NEGATIVE); Methamphetamines Screen Urine NEGATIVE (NEGATIVE); Opiate Screen Urine NEGATIVE (NEGATIVE); Oxycodone Screen Urine NEGATIVE (NEGATIVE); Phencyclidine Screen Urine NEGATIVE (NEGATIVE); Tricyclic Antidepressant Urine NEGATIVE (NEGATIVE)
[2024-08-20 06:07] LABS: HBsAg Screen Negative (Negative); HIV Ab/p24 Ag Screen Non Reactive (Non Reactive)
[2024-08-20 12:12] LABS: Rapid Plasma Reagin, Quant Non Reactive titer (NonRea<1:1)
== END 2024-08-18 15:34 | disposition home or self-care (01) ==
LOC: LAB 15:33
PROVIDERS: Visit Provider Obstetrics & Gynecology
DX: Z34.01 Encounter for supervision of normal first pregnancy, first trimester (principal); Z36.0 Encounter for antenatal screening for chromosomal anomalies; N92.6 Irregular menstruation, unspecified
CPT/HCPCS: 36415; 80307; 83036; 85025; 86592; 86762; 86803; 86850; 86900; 86901; 87086; 87340; 87389

== ENCOUNTER 2024-09-07 12:13 | Outpatient (OUT) | payer OTHER, SELFPAY ==
--- OUTSIDE RECORDS SUMMARY | 2024-09-07 10:50 | XMS_ITS | Encounter Summary ---
Author Organization [facility] Address [address] [place] [address] Care Team Providers Care Personal Computer Network Analyst Name Role Phone Nano Back Unavailable Reason for Visit * Reason Comments Routine Visit Encounter Details Date Type Department Care Team (Latest Contact Info) Description 09/07/2024 10:50 AM EDT Routine [facility] OB [address] [facility] [place] [address] Robert Marrero, DO [address] [facility] [address] [place], [facility]11 Constipation, unspecified constipation type (Primary Dx); First trimester ; 13 weeks gestation of ; Nausea and vomiting in Social History Tobacco Use Types Packs/Day Years Used Date Smoking Tobacco: Never Smokeless Tobacco: Never Alcohol Use Standard Drinks/Week Comments Not Currently 3 (1 standard drink = 0.6 oz pur e alcohol) PHQ-2 Answer Date Recorded Patient Health Questionnaire-2 Score 4 08/11/2024 Estimated Date of Delivery Comme nts Yes 03/14/2025 Based on Ultraso und Sex and Gender Information Value Date Recorded Sex Assigned at Female 05/01/2023 12:34 PM EST Legal Sex Female 6:38 PM EDT Gender Identity Female 05/01/2023 12:34 PM EST Sexual Orientation Straight 05/01/2023 12 :34 PM EST documented as of this encounter Last Filed Vital Signs Vital Sign Reading Time Taken Comments Blood Pressure 108/80 09/07/2024 11:13 AM EDT Pulse - - Temperature - - Respiratory Rate - - Oxygen Saturation - - Inhaled Oxygen Concentration - - Weight 115 kg (254 lb 8 oz) 09/07/2024 11:13 AM EDT Height - - Body Mass Index 41.08 08/08/2022 12:00 PM EDT documented in this encounter Plan of Treatment Upcoming Encounters Date Type Department Care Team (Late st Contact Info) Description 10/05/2024 11:10 AM EDT Routine [facility] OB [address] [facility] [place] [address] Robert Marrero DO [address] [place] [address] [place] [address] documented as of this encounter Procedures Procedure Name Priority Date/Time Associated Diagnosis Comments POCT URINALYSIS DIPSTICK Routine 09/07/2024 11:19 AM EDT First trimester documented in this encounter Results * (ABNORMAL) POCT urinalysis dipstick manually resulted (09/07/2024 11:19 AM EDT) Color, UA Yellow Clarity, UA Clear Glucose, UA Negative Negative - 1999(110) ++++ mg/dL Bilirubin, UA Positive Negative - 4(70) +++ mg/dL Comment:small Ketones, UA Positive Negative - 160(16) ++++ mg/dL Comment:15mg/dL Spec Grav, UA 1.020 1 - 1.03 Blood, UA Negative Negative - 50 Villa/mcL pH, UA 7.5 5 - 9 Protein, UA Positive Negative - 1999(20) ++++ mg/dL Comment:30mg/dL Urobilinogen, UA 2.0 0.2 - 12 mg/dL Leukocytes, UA Trace Negative - 500+++ Pierre/mcL Nitrite, UA Negative Negative - Positive Urine 09/07/2024 11:1 9 AM EDT Robert Marrero DO POINT OF CARE TEST ENTER/EDIT OR DERABLES Final Result documented in this encounter Visit Diagnoses Diagnosis Constipation, unspecified constipation type- Primary First trimester state, incidental 13 weeks gestation of Nausea and vomiting in Unspecified vomiting of , unspecified as to episode of care documented in this encounter Care Teams Personal Computer Network Analyst Relationship Specialty Start Date End Date Nano Back PA [address] [place] [address] [place] [address] PCP - [facility] 01/07/24 documented as of this encounter
--- OUTSIDE RECORDS SUMMARY | 2024-09-07 12:16 | XMS_ITS | Encounter Summary ---
Author Organization [facility] Address [address] [place] [address] Care Team Providers Care Lithographic Printing Machinist Name Role Phone NazaninNano Unavailable Encounter Details Date Type Department Care Team (Late st Contact Info) Description 10/01/2023 Clinisync Result Encounter [facility] External Department Unsolicited Elsi Marrero, [address] [place] [id number] Social History Tobacco Use Types Packs/Day Years Used Date Smoking Tobacco: Never Smokeless Tobacco: Never Alcohol Use Standard Drinks/Week Comments Not Currently 3 (1 standard drink = 0.6 oz pur e alcohol) Comments No Sex and Gender Information Value Date Recorded Sex Assigned at Female 05/01/2023 12:34 PM EST Legal Sex Female 6:38 PM EDT Gender Identity Female 05/01/2023 12:34 PM EST Sexual Orientation Straight 05/01/2023 12 :34 PM EST documented as of this encounter Plan of Treatment Upcoming Encounters Date Type Department Care Team (Late st Contact Info) Description 10/05/2024 11:10 AM EDT Routine [facility] BCP OB [address] [place] [id number] Elsi Marrero DO [address] [place], [place] [id number] documented as of this encounter Procedures Procedure Name Priority Date/Time Associated Diagnosis Comments US OB GROWTH 10/01/2023 11:17 AM EDT documented in this encounter Results * US OB GROWTH (10/01/2023 11:17 AM EDT) Anatomical Region Laterality Modality Other 10/01/2023 11:1 7 AM EDT Narrative 10/01/2023 11:20 [place] [address] Ultrasound Report Signed Patient: LIA DESAI MR#: [id number] : 2000 Acct:[id number] Age/Sex: 22 / F ADM Date: 10/01/23 Loc: [facility] Attending Dr: Elsi Marrero D.O. Ordering Physician: Elsi Marrero D.O. Date of Service: 10/01/23 Procedure(s): US OB growth Accession Number(s): [id number] cc: Elsi Marrero D.O.; Physician,Non-Staff M.DMarisabel The [place] [address] Patient Name: LIA DESAI MRN: [id number] date: 2000 Sex: F Assigned Patient Location: [facility] Current Patient Location: [facility] Accession/Order Number: [id number] Exam Date: 10/01/2023 10:42 Report Date: 10/01/2023 11:17 At the request of: ELSI MARRERO Procedure: US OB growth EXAMINATION: US OB growth HISTORY: SIZE INCONSISTENT WITH DATES COMPARISON: No relevant comparison available. FINDINGS: Heart Rate: 146 bpm Amniotic Fluid Volume: 12.6 cm. Largest fluid pocket 4.1 cm Number: 1 Position: Cephalic presentation, longitudinal lie BIOMETRY: BPD: 7.57 cm cm; 30 weeks 3 days; 54.20 %% HC: 27.96 cm cm; 30 weeks 4 days; 36.10 %% AC: 25.35 cm cm; 29 weeks 4 days; 34.80 %% FL: 5.68 cm cm; 29 weeks 6 days; 33.50 %% EFW: 1464.72 g; 3 lbs. 3 oz. 34.50 % FL/AC: 22.41 FL/BPD: 75.03 HC/AC: 1.10 GESTATIONAL AGE: Age by EDC: 29 weeks 6 days MONIQUE by EDC: 2023-12-11 Age by US: 30 weeks 1 day MONIQUE by US: 2023-12-09 US/US OB growth IMPRESSION: Normal interval growth Electronically authenticated by: CHRISTIAN KATE Date: 10/01/2023 11:17 Dictated By: Christian Kate M.D. Signed By: 10/01/23 1120 DD/ 1117 TD/TT: Solar Photovoltaic Designer: Procedure Note Radiology, Radiologist, MD - 10/01/2023 [place] [address] Ultrasound Report Signed Patient: LIA DESAI LMR#: [id number] : 2000Acct:[id number] Age/Sex: 22 / FADM Date: 10/01/23 Loc: [facility] Attending Dr: Elsi Marrero D.O. Ordering Physician: Elsi Marrero D.O. Date of Service: 10/01/23 Procedure(s): US OB growth Accession Number(s): [id number] cc: Elsi Marrero D.O.; Physician,Non-Staff Nena [address] [place] [address] Patient Name: LIA DESAI MRN: [facility]:[id number] date: 2000 Sex: F Assigned Patient [facility]: [facility] Current Patient Location: [facility] Accession/Order Number: [id number] Exam Date: 10/01/2023 10:42 Report Date: 10/01/2023 11:17 At the request of: ELSI MRARERO Procedure: US OB growth EXAMINATION: US OB growth HISTORY: SIZE INCONSISTENT WITH DATES COMPARISON: No relevant comparison available. FINDINGS: Heart Rate: 146 bpm Amniotic Fluid Volume: 12.6 cm. Largest fluid pocket 4.1 cm Number: 1 Position: Cephalic presentation, longitudinal lie BIOMETRY: BPD: 7.57 cm cm; 30 weeks 3 days; 54.20 %% HC: 27.96 cm cm; 30 weeks 4 days; 36.10 %% AC: 25.35 cm cm; 29 weeks 4 days; 34.80 %% FL: 5.68 cm cm; 29 weeks 6 days; 33.50 %% EFW: 1464.72 g; 3 lbs. 3 oz. 34.50 % FL/AC: 22.41 FL/BPD: 75.03 HC/AC: 1.10 GESTATIONAL AGE: Age by EDC: 29 weeks 6 days MONIQUE by EDC: 2023-12-11 Age by US: 30 weeks 1 day MONIQUE by US: 2023-12-09 US/US OB growth IMPRESSION: Normal interval growth Electronically authenticated by: CHRISTIAN KATE Date: 10/01/2023 11:17 Dictated By: Christian Kate M.D. Signed By:10/01/23 1120 DD/ 1117 TD/TT: Solar Photovoltaic Designer: us Elsi Janes DO [facility] Final Result documented in this encounter Visit Diagnoses Not on filedocumented in this encounter Care Teams Lithographic Printing Machinist Relationship Specialty Start Date End Date Nano Back PA [address] [place] [address] [place] [address] [facility] 01/07/24 documented as of this encounter
--- OUTSIDE RECORDS SUMMARY | 2024-09-07 12:16 | XMS_ITS | Encounter Summary ---
Author Organization [facility] Address [address] [place] [address] Care Team Providers Care Licensed Occupational Therapy Assistant Name Role Phone Nazanin, Nano MILLS Unavailable Encounter Details Date Type Department Care Team (Late st Contact Info) Description 08/25/2024 Abstract [facility] OB [address] [place] [address] Robert Marrero DO [facility] [address] [place], [facility]11 Social History Tobacco Use Types Packs/Day Years [...] Routine [facility] BCP OB [address] [place] [address] Robert Marrero DO [address] [place], [facility]11 documented as of this encounter Visit Diagnoses Not on filedocumented in this encounter Care Teams Licensed Occupational Therapy Assistant Relationship Specialty Start Date End Date Nano Back PA [address] [place] [address] [place] [address] PCP - [facility] 01/07/24 documented as of this encounter
--- OUTSIDE RECORDS SUMMARY | 2024-09-07 12:16 | XMS_ITS | Encounter Summary ---
Author Organization [facility] Address [address] [facility] [place] [address] Care Team Providers Care Oracle Applications Developer Name Role Phone NazaninNano Unavailable Encounter Details Date Type Department Care Team (Late st Contact Info) Description 08/21/2024 Abstract [facility] OB [address] [place] [address] Zaida Tavares MA Social History Tobacco Use Types Packs/Day Years [...] Description 10/05/2024 11:10 AM EDT Routine [facility] [address] [place] [address] Robert Marrero [address] [place], [place] [address] documented as of this encounter Visit Diagnoses Not on filedocumented in this encounter Care Teams Oracle Applications Developer Relationship Specialty Start Date End Date Nano Back PA [address] [place] [address] Dr [place], [facility]11 PCP - [facility] 01/07/24 documented as of this encounter
--- OUTSIDE RECORDS SUMMARY | 2024-09-07 12:16 | XMS_ITS | Encounter Summary ---
Author Organization [facility] Address [address] [facility] [place] [address] Care Team Providers Care Phlebotomy Coordinator Name Role Phone Nano Back Unavailable Encounter Details Date Type Department Care Team (Late Contact Info) Description 11/14/2023 Abstract [facility] OB [address] [facility] [place] [address] Robert Marrero [facility] [place] [address] [place], [facility] Social History Tobacco Use Types Packs/Day [...] Description 10/05/2024 11:10 AM EDT Routine [facility] OB [address] [facility] [place] [address] Robert Marrero [facility] [address] [place], [facility]11 documented as of this encounter Visit Diagnoses Not on filedocumented in this encounter Care Teams Phlebotomy Coordinator Relationship Specialty Start Date End Date Nano Back PA [address] [place] [address] Dr [place], [facility] PCP - [facility] 01/07/24 documented as of this encounter
--- OUTSIDE RECORDS SUMMARY | 2024-09-07 12:16 | XMS_ITS ---
Author Organization [facility] Address [address] [place] [address] Care Team Providers Care Bd Special Education Teacher Name Role Phone Nano Back Unavailable [facility] ([facility]) Status:Enrolled (Active) Start date:08/10/2024 Enrollment date:08/11/2024 Enrollment reason:Identified by Health Plan Case Team Name Relationship Phone Nano Melendez LPN(Responsible Staff) Licensed [facility] Continued Care and Services Coordination
--- OUTSIDE RECORDS SUMMARY | 2024-09-07 12:16 | XMS_ITS | Encounter Summary ---
Author Organization [facility] Address [address] [place] [address] Care Team Providers Care Anvil Seating Press Operator Name Role Phone NazaninNano Unavailable Encounter Details Date Type Department Care Team (Late st Contact Info) Description 05/02/2023 Clinisync Result Encounter [facility] External Department Unsolicited Elsi Marrero, [address]Tiffanie LambMATTHEW [place] [id number] Social History Tobacco Use Types Packs/Day Years Used Date Smoking Tobacco: Never Assessed Comments Yes Sex and Gender Information Value Date Recorded [...] AM EDT Routine [facility] OB [address] [place] [id number] Elsi Marrero DO [facility] [place], [place] [phone] documented as of this encounter Procedures Procedure Name Priority Date/Time Associated Diagnosis Comments US OB TRANSVAGINAL 05/02/2023 1: 36 PM EST documented in this encounter Results * US OB TRANSVAGINAL (05/02/2023 1:36 PM EST) Anatomical Region Laterality Modality Other 05/02/2023 1:36 PM EST Narrative 05/02/2023 1:39 [place] [address] Ultrasound Report Signed Patient: Lia Desai MR#: [id number] : 2000 Acct:[id number] Age/Sex: 22 / F ADM Date: 05/02/23 Loc: [facility] Attending Dr: Elsi Marrero D.O. Ordering Physician: Elsi Marrero D.O. Date of Service: 05/02/23 Procedure(s): US OB transvaginal Accession Number(s): [id number] cc: Elsi Marrero D.O.; Physician,Non-Staff [place] [address] Patient Name: LIA DESAI MRN: [id number] date: 2000 Sex: F Assigned Patient Location: [facility] Current Patient Location: [facility] Accession/Order Number: [id number] Exam Date: 05/02/2023 12:36 Report Date: 05/02/2023 13:36 At the request of: ELSI MARRERO Procedure: US OB transvaginal EXAMINATION: US OB transvaginal HISTORY: MISSED MENSES COMPARISON: No relevant comparison available. FINDINGS: Holland intrauterine gestation Gestational sac: 3.52 cm, 8 weeks 4 days CRL: 1.74 cm, 8 weeks 1 day Yolk sac: 2.5 mm Heart rate: 167 bpm Uterus is retroverted retroflexed. Area of hyperechogenicity adjacent to the gestational sacr measuring 2.1 x 0.7 cm The ovaries are normal in appearance Cervix: Closed, 4 cm Clinical age: 8 weeks 1 day Clinical MONIQUE: 12/11/2023 Ultrasound age: 8 weeks 1 day Ultrasound MONIQUE: 12/11/2023 US/US OB transvaginal IMPRESSION: Subchorionic hematoma Viable intrauterine gestation measuring 8 weeks 1 day Electronically authenticated by: CHRISTIAN KATE Date: 05/02/2023 13:36 Dictated By: Christian Kate M.D. Signed By: 05/02/23 1339 DD/ 1336 TD/TT: Smoking Pipes Cleaner: Procedure Note Radiology, Radiologist, - 05/02/2023 [place] [address] Ultrasound Report Signed Patient: Lia Desai LMR#: [id number] : 2000Acct:[id number] Age/Sex: 22 / FADM Date: 05/02/23 Loc: [facility] Attending Dr: Elsi Marrero D.O. Ordering Physician: Elsi Marrero D.O. Date of Service: 05/02/23 Procedure(s): US OB transvaginal Accession Number(s): [id number] cc: Elsi Marrero D.O.; Physician,Non-Staff [place] [id number] Patient Name: LIA DESAI MRN: [id number] date: 2000 Sex: F Assigned Patient Location: [facility] Current Patient Location: [facility] Accession/Order Number: [id number] Exam Date: 05/02/2023 12:36 Report Date: 05/02/2023 13:36 At the request of: ELSI MARRERO Procedure: US OB transvaginal EXAMINATION: US OB transvaginal HISTORY: MISSED MENSES COMPARISON: No relevant comparison available. FINDINGS: [place] intrauterine gestation Gestational sac: 3.52 cm, 8 weeks 4 days CRL: 1.74 cm, 8 weeks 1 day Yolk sac: 2.5 mm Heart rate: 167 bpm Uterus is retroverted retroflexed. Area of hyperechogenicity adjacent tothe gestational sacr measuring 2.1 x 0.7 cm The ovaries are normal in appearance Cervix: Closed, 4 cm Clinical age: 8 weeks 1 day Clinical MONIQUE: 12/11/2023 Ultrasound age: 8 weeks 1 day Ultrasound MONIQUE: 12/11/2023 US/US OB transvaginal IMPRESSION: Subchorionic hematoma Viable intrauterine gestation measuring 8 weeks 1 day Electronically authenticated by: CHRISTIAN KATE Date: 05/02/2023 13:36 Dictated By: Christian Kate M.D. Signed By:05/02/23 1339 DD/ 1336 TD/TT: Smoking Pipes Cleaner: us Elsi Marrero DO [facility] Final Result documented in this encounter Visit Diagnoses Not on filedocumented in this encounter Care Teams Anvil Seating Press Operator Relationship Specialty Start Date End Date Nano Back PA [address] [place] [address] [place] [address] [facility] 01/07/24 documented as of this encounter
--- OUTSIDE RECORDS SUMMARY | 2024-09-07 12:16 | XMS_ITS | Encounter Summary ---
Author Organization [facility] Address [address] [place] [address] Care Team Providers Care Mobile Heavy Equipment Operator Name Role Phone Nano Back Unavailable Encounter Details Date Type Department Care Team (Late st Contact Info) Description 05/25/2023 Abstract [facility] [address] [place] [address] Robert Marrero DO [address] [place] [address] Tasha [place], [facility] Social History Tobacco Use Types Packs/Day Years Used Date Smoking Tobacco: Never Alcohol Use Standard Drinks/Week Comments Never 0 (1 standard drink = 0.6 oz pur e alcohol) Comments Yes Sex and Gender Information Value [...] Description 10/05/2024 11:10 AM EDT Routine [facility] [address] [place] [address] Robert Marrero DO [facility] [place] [phone] documented as of this encounter Visit Diagnoses Not on filedocumented in this encounter Care Teams Mobile Heavy Equipment Operator Relationship Specialty Start Date End Date Nano Bcak PA [address] [facility] [address] [place], [facility]11 [facility] - [facility] 01/07/24 documented as of this encounter
--- OUTSIDE RECORDS SUMMARY | 2024-09-07 12:16 | XMS_ITS | Encounter Summary ---
Author Organization [facility] Address [address] [facility] [place] [address] Care Team Providers Care Paid Search Specialist Name Role Phone Nano Back Unavailable Encounter Details Date Type Department Care Team (Late Contact Info) Description 12/05/2023 Abstract [facility] OB [address] [facility] [place] [address] Robert Marrero [facility] [place], [facility] Social History Tobacco Use Types Packs/Day [...] Description 10/05/2024 11:10 AM EDT Routine [facility] OB [address] [facility] [place] [address] Robert Marrero [facility] [place], [facility] documented as of this encounter Visit Diagnoses Not on filedocumented in this encounter Care Teams Paid Search Specialist Relationship Specialty Start Date End Date Nano Back PA [address] [place] [address] [place], [facility]11 PCP - [facility] 01/07/24 documented as of this encounter
--- OUTSIDE RECORDS SUMMARY | 2024-09-07 12:16 | XMS_ITS | Encounter Summary ---
Author Organization [facility] Address [address] [place] [address] Care Team Providers Care Editor School Photograph Name Role Phone Nano Back Unavailable Encounter Details Date Type Department Care Team (Late st Contact Info) Description 09/04/2023 Abstract [facility] [address] [place] [place] [address] Robert Marrero DO [address] [place] [address] Tasha [place], [facility] Social History Tobacco Use Types Packs/Day [...] Description 10/05/2024 11:10 AM EDT Routine [facility] [address] [place] [address] Robert Marrero DO [facility] [place] [phone] documented as of this encounter Visit Diagnoses Not on filedocumented in this encounter Care Teams Editor School Photograph Relationship Specialty Start Date End Date Nano Back PA [address] [facility] [address] [place], [facility]11 [facility] 01/07/24 documented as of this encounter
--- OUTSIDE RECORDS SUMMARY | 2024-09-07 12:16 | XMS_ITS | Encounter Summary ---
Author Organization [facility] Address [address] [facility] [place] [address] Care Team Providers Care Cup Machine Operator Name Role Phone Nano Back Unavailable Encounter Details Date Type Department Care Team (Late Contact Info) Description 11/22/2023 Abstract [facility] OB [address] [facility] [place] [address] Robert Marrero [facility] Marydel Alondra [place], [facility]11 Social History Tobacco Use Types Packs/Day [...] Description 10/05/2024 11:10 AM EDT Routine [facility] [address] [facility] [facility] [place] [address] Robert Marrero [facility] [place], [facility]11 documented as of this encounter Visit Diagnoses Not on filedocumented in this encounter Care Teams Cup Machine Operator Relationship Specialty Start Date End Date Nano Back PA [address] [place] [address] Dr [place], [facility]11 PCP - [facility] 01/07/24 documented as of this encounter
--- OUTSIDE RECORDS SUMMARY | 2024-09-07 12:16 | XMS_ITS | Encounter Summary ---
Author Organization [facility] Address [address] [place] [address] Care Team Providers Care Solid Surface Fabricator Name Role Phone Nano Back Unavailable Encounter Details Date Type Department Care Team (Late st Contact Info) Description 05/15/2023 Abstract [facility] [address] [facility] [place] [address] Robert Marrero DO [address] [place] [address] Tasha [place], [facility]11 Social History Tobacco Use Types Packs/Day Years [...] Description 10/05/2024 11:10 AM EDT Routine [facility] [address] [place] [address] Robert Marrero DO [facility] [place] [phone] documented as of this encounter Visit Diagnoses Not on filedocumented in this encounter Care Teams Solid Surface Fabricator Relationship Specialty Start Date End Date Nano Back PA [address] [facility] [address] [place], [facility]11 [facility] 01/07/24 documented as of this encounter
--- OUTSIDE RECORDS SUMMARY | 2024-09-07 12:16 | XMS_ITS | Clinical Summary ---
Author Organization [facility] tem Address [id number] [address] [place] [address] Care Team Providers Care Right Of Way Supervisor Name Role Phone Services, Formerly [facility], [facility] Primary Care Provider Allergies Active Allergy Reactions Criticality Noted Date Comments Azithromycin High 03/21/2022 Adhesive 09/25/2022 Metronidazole Vomiting 07/11/2023 Medications 25/iron fum/folic/dha (-1 ORAL) Take by mouth. Activ e folic acid (FOLVITE) 1 mg tabletIndicatio ns:Folic acid deficiency Take 1 tablet (1 mg total) by mouth in the morning. 30 tablet 12 03/06/20 23 Active Additional Information Patient not taking.Reported on 07/11/2023 progesterone (ENDOMETRIN) 100 mg vaginal insert Insert 1 tablet (100 mg total) into the vagina in the evening. Active metoclopramide (REGLAN) 10 mg tablet Take 1 tablet (10 mg total) by mouth every 6 (six) hours. 15 tablet 07/21/19 25 Active ondansetron (ZOFRAN) 4 mg tablet Take 1 tablet (4 mg total) by mouth every 8 (eight) hours as needed for nausea or vomiting. Active prochlorperazin e (COMPAZINE) 25 mg suppository Insert 1 suppository (25 mg total) into the rectum every 12 (twelve) hours as needed for nausea or vomiting. 12 suppository 08/04/19 25 Active Active Problems Comments Yes No known active problems Encounters Date Type Department Care Team Description 08/03/2024 11:52 AM EDT - 08/03/2024 2:18 PM EDT Emergency [facility] - Emergency [address] [place] [address] Levi Singh MD Nausea and vomiting during (Primary Dx) Discharge Disposition: Home 08/03/2024 Travel 07/20/2024 1:53 PM EDT - 07/20/2024 4:14 PM EDT Emergency [facility] - Emergency [address] [place] [address] Micah Galeana MD Nausea and vomiting, unspecified vomiting type (Primary Dx); Early stage of Discharge Disposition: Home 07/20/2024 Travel from Last 3 Months Family History Medical History Relation Name Comments Cancer Father Depression Father Breast cancer Maternal Aunt Ovarian cancer Maternal Aunt Hypertension Maternal Grandmother Cancer Mother Depression Mother Ovarian cancer Mother uterine Colon cancer Neg Hx Relation Name Status Comments Father Alive Maternal Aunt Alive Maternal Grandfather Alive Maternal Grandmother Alive Mother Alive Paternal Grandfather Alive Paternal Grandmother Alive Social History Tobacco Use Types Packs/Day Years Used Date Smoking Tobacco: Never Passive Smoke Exposure: Yes Smokeless Tobacco: Never Tobacco Cessation:Counseling Given: Not Answered Alcohol Use Standard Drinks/Week Comments Not Currently 0 (1 standard drink = 0.6 oz pur e alcohol) social Housing Instability Answer Date Recorde d Are you worried or concerned that in the next two months you may not have stable housing that you own, rent or stay in as a part of a household? No 09/04/2023 Childcare Answer Date Recorded Childcare Unknown 09/17/2018 Employment Answer Date Recorded Employment Unknown 09/17/2018 Hunger Screening Answer Date Recorded Within the past 12 months we worried whether our food would run out before we got money to buy more. Never True 08/03/2024 Within the past 12 months th e food we bought just didn't last and we didn't have money to get more. Never True 08/03/2024 Purpose - Life Answer Date Recorded Purpose and direction in life Unknown Comments Yes Sex and Gender Information Value Date Recorded Sex Assigned at Not on file Legal Sex Female 12:06 PM EDT Gender Identity Not on file Sexual Orientation Bisexual 07/30/2023 3: 24 PM EDT Last Filed Vital Signs Vital Sign Reading Time Taken Comments Blood Pressure 129/87 08/03/2024 11:49 AM EDT Pulse 105 08/03/2024 11:49 AM EDT Temperature 36.9 C (98.4 F) 08/03/2024 11:49 AM EDT Respiratory Rate 20 08/03/2024 11:4 9 AM EDT Oxygen Saturation 100% 08/03/2024 11: 49 AM EDT Inhaled Oxygen Concentration - - Weight 120.7 kg (266 lb 3.2 oz) 025 12:47 PM EDT Height 170.2 cm (5' 7 ) 08/03/2024 11:4 9 AM EDT Body Mass Index 41.69 05/30/2024 8:12 PM EST Plan of Treatment Health Maintenance Due Date Last Done Comments Depression Screening 2013 Adult BMI Follow Up Plan 10/08/2019 Pap Smear 2022 Influenza Vaccine 12/07/2024 Chlamydia Screening 05/01/2025 05/01/2024, Adult BMI Screening 07/20/2025 07/20/2024 Tobacco Screening 08/03/2025 08/03/2024 DTaP,Tdap and Td Vaccines (2 - Td or Tdap) 05/15/2028 05/15/2018 Medical Devices Not on file Procedures Procedure Name Priority Date/Time Associated Diagnosis Comments POCT , URINE (NUCG) Routine 08/03/2024 1:01 PM EDT POCT NURSING URINE MACROSCOPIC UA Routine 08/03/2024 12:59 PM EDT US PREG LESS THAN 14 WKS SINGLE STAT 08/03/2024 12:41 PM EDT MAGNESIUM STAT 08/03/2024 12:26 PM EDT COMPREHENSIVE METABOLIC PANEL STAT 08/03/2024 12:26 PM EDT CBC WITH AUTO DIFFERENTIAL STAT 08/03/2024 12:26 PM EDT POCT , URINE (NUCG) Routine 07/20/2024 3:59 PM EDT POCT NURSING URINE MACROSCOPIC UA Routine 07/20/2024 3:57 PM EDT URINE CULTURE STAT 07/20/2024 3:50 PM EDT HCG-BETA, SERUM STAT 07/20/2024 3:00 PM EDT LIPASE STAT 07/20/2024 3:00 PM EDT COMPREHENSIVE METABOLIC PANEL STAT 07/20/2024 3:00 PM EDT CHLAMYDIA/GC BY PCR BISI SWAB STAT 05/01/2024 11:20 AM EST from Last 3 Months or Most Recently Relevant to Health Maintenance Results * (ABNORMAL) POCT , urine (08/03/2024 1:01 PM EDT) Only the most recent of2 resultswithin the time period is included. POC Urine Positive(A ) Negative 08/03/2024 12:59 PM EDT [facility] Urine 08/03/2024 1:01 PM EDT 08/03/2024 12:59 PM EDT us Levi Singh MD POINT OF CARE TEST ORDERABLES F inal Result [facility] [address] [place] [address], [place] * (ABNORMAL) POCT Nursing Urine Macroscopic UA (08/03/2024 12:59 PM EDT) Only the most recent of2 resultswithin the time period is included. POC Urine Specific [place] 1.025(A) (none) 08/03/2024 12:56 PM EDT [facility] POC Urine Leukocyte Esterase Negative Negative 08/03/2024 12:56 PM EDT [facility] POC Urine Nitrite Negative Negative 08/03/2024 12:56 PM EDT [facility] POC Urine pH 7.0 5.0, 6.0, 6.5, 7.0, 7.5, 8.0, 8.5, 5.5 08/03/2024 12:56 PM EDT [facility] POC Urine Protein 100 mg/dL(A) Negative 08/03/2024 12:56 PM EDT [facility] POC Urine Glucose Negative Negative 08/03/2024 12:56 PM EDT [facility] POC Urine Ketones 15 mg/dL(A) Negative 08/03/2024 12:56 PM EDT [facility] POC Urine Urobilinogen 1.0 E.U./dL 0.2 E.U./dL, 1.0 E.U./dL 08/03/2024 12:56 PM EDT [facility] POC Urine Bilirubin Small(A) Negative 08/03/2024 12:56 PM EDT [facility] POC Urine Blood/HGB Small(A) Negative 08/03/2024 12:56 PM EDT [facility] Urine 08/03/2024 12:5 9 PM EDT 08/03/2024 12:56 PM EDT us Levi Singh MD POINT OF CARE TEST ORDERABLES F inal Result [facility] [address] [place] [address], [place] * Ultrasound less than 14 weeks single (08/03/2024 12:41 PM EDT) Anatomical Region Laterality Modality OB-SENIOR QC TECHNICIAN Ultrasound 08/03/2024 12:4 9 PM EDT Narrative 08/03/2024 12:52 PM EDT US PREG LESS THAN 14 WKS SINGLE CLINICAL INDICATION: vomiting FINDINGS: limited transabdominal ultrasound of the pelvis. UTERUS AND GESTATIONAL SAC: Intrauterine gestation: Single. Gestational sac: Intrauterine. Yolk sac: 0.3 cm Cardington-rump length (CRL): 1.6 cm heart motion: 174 bpm. Subchorionic hemorrhage: None. OVARIES: Normal morphology. Right ovary: 3.6 x 2.0 x 2.2 cm. Normal color flow. Left ovary: 4.0 x 2.7 x 3.2 cm. There is a 2.3 cm presumed corpus luteum. 4 color flow is likely related to transabdominal technique in the absence of associated ovarian enlargement. FREE FLUID: None. IMPRESSION: Single, live intrauterine with estimated gestational age 8 weeks 0 days, MONIQUE 03/15/2025. heart rate measures 174bpm. Sonographic appearance of the ovaries grossly within normal limits for transabdominal technique. Finalized by Brett Gutierrez on 08/03/2024 12:52 PM Procedure Note Brett Gutierrez MD - 08/03/2024 US PREG LESS THAN 14 WKS SINGLE CLINICAL INDICATION: vomiting FINDINGS: limited transabdominal ultrasound of the pelvis. UTERUS AND GESTATIONAL SAC: Intrauterine gestation: Single. Gestational sac: Intrauterine. Yolk sac: 0.3 cm Cardington-rump length (CRL): 1.6 cm heart motion: 174 bpm. Subchorionic hemorrhage: None. OVARIES: Normal morphology. Right ovary: 3.6 x 2.0 x 2.2 cm. Normal color flow. Left ovary: 4.0 x 2.7 x 3.2 cm. There is a 2.3 cm presumed corpus luteum.4 color flow is likely related to transabdominal technique in the absenceof associated ovarian enlargement. FREE FLUID: None. IMPRESSION: Single, live intrauterine with estimated gestational age 8 weeks0 days, MNOIQUE 03/15/2025. heart rate measures 174bpm. Sonographic appearance of the ovaries grossly within normal limits fortransabdominal technique. Finalized by Brett Gutierrez on 08/03/2024 12:52 PM us Sarai Jose SOLUTION STRATEGIST-EDGE CUTTING MACHINE OPERATOR IMG US ORDERABLES Final Re sult * (ABNORMAL) CBC auto differential (08/03/2024 12:26 PM EDT) WBC 11.8(H) 4 - 11 x10E9/L 08/03/2024 1:12 PM EDT [facility] RBC Count 4.88 3.8 - 5.2 X10E12/L 08/03/2024 1:12 PM EDT [facility] Hemoglobin 13.4 11.7 - 15.5 g/dL 08/03/2024 1:12 PM EDT [facility] Hematocrit 40.0 35 - 47 % 08/03/2024 1:12 PM EDT [facility] MCV 82 80 - 100 fL 08/03/2024 1:12 PM EDT [facility] MCH 27.5 27 - 34 pg 08/03/2024 1:12 PM EDT [facility] MCHC 33.5 32 - 36 g/dL 08/03/2024 1:12 PM EDT [facility] RDW 14.2 11.5 - 15 % 08/03/2024 1:12 PM EDT [facility] Platelet Count 400 150 - 450 X10E9/L 08/03/2024 1:12 PM EDT [facility] MPV 9.1 7 - 12 fL 08/03/2024 1:12 PM EDT [facility] Neutrophils Relative 67.6 % 08/03/2024 1:12 PM EDT [facility] Lymphocytes Relative 23.8 % 08/03/2024 1:12 PM EDT [facility] Monocytes Relative 7.7 % 08/03/2024 1:12 PM EDT [facility] Eosinophils Relative 0.2 % 08/03/2024 1:12 PM EDT [facility] Basophils Relative 0.7 % 08/03/2024 1:12 PM EDT [facility] Neutrophils Absolute (A) 8.0 10*3/uL 08/03/2024 1:12 PM EDT [facility] Lymphocytes Absolute 2.8 10*3/uL 08/03/2024 1:12 PM EDT [facility] Monocytes Absolute 0.9 10*3/uL 08/03/2024 1:12 PM EDT [facility] Eosinophils Absolute 0.0 10*3/uL 08/03/2024 1:12 PM EDT [facility] Basophils Absolute 0.1 10*3/uL 08/03/2024 1:12 PM EDT [facility] Differential Type AUTOMATED DIFFERENTIAL 08/03/2024 1:12 PM EDT [facility] Blood Venous blood / Unknown 08/03/2024 12:26 PM EDT 08/03/2024 12:44 PM EDT Sarai Jose SOLUTION STRATEGIST-EDGE CUTTING MACHINE OPERATOR LAB BLOOD ORDERABLES Final Result Performing Organization Address City/[facility]/ZIP Co de Phone Number [address] [place] [address], [place] * Magnesium (08/03/2024 12:26 PM EDT) MAGNESIUM 2.1 1.8 - 2.6 mg/dL 08/03/2024 1:06 PM EDT [facility] Comment:R-Specimen hemolyzed , results increased Blood Venous blood / Unknown 08/03/2024 12:26 PM EDT 08/03/2024 12:44 PM EDT Sarai Jose SOLUTION STRATEGIST-EDGE CUTTING MACHINE OPERATOR LAB BLOOD ORDERABLES Final Result Performing Organization Address City/[facility]/ZIP Co de Phone Number [address] [place] [address], [place] * (ABNORMAL) Comprehensive metabolic panel (08/03/2024 12:26 PM EDT) Only the most recent of2 resultswithin the time period is included. SODIUM 134 134 - 146 mmol/L 08/03/2024 1:06 PM EDT [facility] POTASSIUM 4.2 3.5 - 5.0 mmol/L 08/03/2024 1:06 PM EDT [facility] Comment:R-Specimen hemolyzed , results increased CHLORIDE 103 98 - 109 mmol/L 08/03/2024 1:06 PM EDT [facility] CARBON DIOXIDE 22 22 - 32 mmol/L 08/03/2024 1:06 PM EDT [facility] ANION GAP 9 5 - 15 mmol/L 08/03/2024 1:06 PM EDT [facility] BLOOD UREA NITROGEN 9 5 - 23 mg/dL 08/03/2024 1:06 PM EDT [facility] CREATININE 0.70 0.40 - 1.00 mg/dL 08/03/2024 1:06 PM EDT [facility] Comment:METHOD TRACEABLE TO IDMS STANDARD GLUCOSE 86 65 - 99 mg/dL 08/03/2024 1:06 PM EDT [facility] CALCIUM 9.2 8.5 - 10.5 mg/dL 08/03/2024 1:06 PM EDT [facility] TOTAL PROTEIN 8.1(H) 6.0 - 8.0 g/dL 08/03/2024 1:06 PM EDT [facility] ALBUMIN 4.2 3.2 - 5.3 g/dL 08/03/2024 1:06 PM EDT [facility] ALKALINE PHOSPHATASE 90 39 - 130 U/L 08/03/2024 1:06 PM EDT [facility] AST 27 <=41 U/L 08/03/2024 1:06 PM EDT [facility] Comment:R-Specimen hemolyzed , results increased ALT 16 <=31 U/L 08/03/2024 1:06 PM EDT [facility] Comment:R-Specimen hemolyzed , results increased BILIRUBIN,TOTAL 1.2 0.3 - 1.2 mg/dL 08/03/2024 1:06 PM EDT [facility] Comment:R-Results questionab le due to hemolysis EGFR Non-Race Dependent >90 >=60 ml/min/1.7 3sq.m 08/03/2024 1:06 PM EDT [facility] Comment: Reported eGFR is based on the CKD-EPI 2020 equation that does not use a race coefficient. Blood Venous blood / Unknown 08/03/2024 12:26 PM EDT 08/03/2024 12:44 PM EDT Sarai Jose APRN-EDGE CUTTING MACHINE OPERATOR LAB BLOOD ORDERABLES Final Result [facility] [address] [facility] [address] [place] [address], [place] * Urine culture (07/20/2024 3:50 PM EDT) Culture >100,000 ORGANISMS/ML NORMAL UROGENITAL JONNY 07/21/2024 6:47 PM EDT [facility] Urine Urine specimen collection, clean catch / Unknown 07/20/2024 3:50 PM EDT 07/20/2024 4:01 PM EDT Marcia Durbin APRN-EDGE CUTTING MACHINE OPERATOR MICROBIOLOGY - GENERA L ORDERABLES Edited Result - Final [facility] [address] [place] [address] * HCG, Quantitative, (07/20/2024 3:00 PM EDT) Hcg-beta, serum 31,689 mIU/mL 4:06 PM EDT [facility] Comment: NEW REFERENCE RANGE WEEKS (SINCE LMP) MIU/mL 3 WEEKS 5 - 50 4 WEEKS 5 - 426 5 WEEKS 18 - 7,340 6 WEEKS 1,080 - 56,500 7-8 WEEKS 7,650 - 229,000 9-12 WEEKS 25,700 - 288,000 13-16 WEEKS 13,300 - 254,000 17-24 WEEKS 4,060 - 165,400 25-40 WEEKS 3,640 - 117,000 MALES AND NON- FEMALES - <5 MIU/mL This test has been FDA approved for use in only. Elevated levels are not necessarily diagnostic for trophoblastic or nontrophoblastic neoplasms. PLASMA 07/20/2024 3:00 PM EDT 07/20/2024 3:16 PM EDT Marcia Durbin SOLUTION STRATEGIST-EDGE CUTTING MACHINE OPERATOR LAB BLOOD ORDERABLES Final Result Performing Organization Address City/[facility]/ZIP Co de Phone Number [address] [address] * Lipase (07/20/2024 3:00 PM EDT) Lipase 31 17 - 40 U/L 07/20/2024 3:35 PM EDT [facility] Blood (PLASMA) 07/20/2024 3: 00 PM EDT 07/20/2024 3:16 PM EDT Marcia Durbin SOLUTION STRATEGIST-[facility] LAB BLOOD ORDERABLES Final Result Performing Organization Address City/[facility] Co de Phone Number [address] [address] * Chlamydia/GC by PCR Bisi Swab (05/01/2024 11:20 AM EST) Specimen source CERVIX 5:35 PM [facility] Comment:Corrected on 05/01 A T 1735: Previously reported as SWAB Chlamydia DNA PCR Negative Negative^N egative 05/04/2024 11:02 AM [facility] Comment: Chlamydia trachomatis not detected by nucleic acid amplification. This does not exclude the possibility of infection because results are dependent on adequate specimen collection. Gonorrhea DNA PCR Negative Negative^N egative 05/04/2024 11:02 AM [facility] Comment: Neisseria gonorrhoeae not detected by nucleic acid amplification. This does not exclude the possibility of infection because results are dependent on adequate specimen collection. GENS 05/01/2024 11:2 0 AM EST 05/01/2024 5:34 PM EST Tom Coto DO MICROBIOLOGY - GENERAL ORDERABLES Edited Result - Final [facility] [address], [address] [place] [address] from Last 3 Months or Most Recently Relevant to Health Maintenance Insurance [place] Advance Directives * Full Code (Latest Code Status on File) Date Activated Date Inactivated Comments 07/30/2023 4:35 PM 07/30/2023 7:06 PM Care Teams Right Of Way Supervisor Relationship Specialty Start Date End Date Services, [facility] [address] [place], [place] PCP - General Family Medicine 05/01/24
--- OUTSIDE RECORDS SUMMARY | 2024-09-07 12:16 | XMS_ITS | Encounter Summary ---
Author Organization [facility] Address [address] [facility] [place] [address] Care Team Providers Care River Rat Name Role Phone Nano Back Unavailable Encounter Details Date Type Department Care Team (Late Contact Info) Description 12/13/2023 Abstract [facility] OB [address] [address] Robert Marrero [facility] [address] Jorge Lamb, [facility] [address] Social History Tobacco Use Types Packs/Day Years [...] Description 10/05/2024 11:10 AM EDT Routine [facility] [address] [facility] [place] [address] Robert Marrero [facility] Diamond Lamb, [facility] [address] documented as of this encounter Visit Diagnoses Not on filedocumented in this encounter Care Teams River Rat Relationship Specialty Start Date End Date Nano Back PA [address] [place] [address] Dr [place], [facility] [address] PCP - [facility] 01/07/24 documented as of this encounter
--- OUTSIDE RECORDS SUMMARY | 2024-09-07 12:16 | XMS_ITS | Encounter Summary ---
Author Organization [employer] [facility] tem Address [id number] [address] [place] [address] Care Team Providers Care Inside Meter Tester Name Role Phone [facility] Primary Care Provider Encounter Details Date Type Department Care Team (Late st Contact Info) Description 09/27/2022 Orders Only [facility] [address] [place] [address] Charu Forbes, SNOW PLOW TRACTOR OPERATOR-COMPA [address] [place], [place] [id number] Chlamydia (Primary Dx) Social History Tobacco Use Types Packs/Day Years Used Date Smoking Tobacco: Never Passive Smoke Exposure: Yes Smokeless Tobacco: Never Alcohol Use Standard Drinks/Week Comments Yes 0 (1 standard drink = 0.6 oz pur e alcohol) social Childcare Answer Date Recorded Childcare Unknown 09/17/2018 Employment Answer Date Recorded Employment Unknown 09/17/2018 Purpose - Life Answer Date Recorded Purpose and direction in life Unknown Comments No Sex and Gender Information Value Date Recorded Sex Assigned at Not on file Legal Sex Female 12:06 PM EDT Gender Identity Not on file Sexual Orientation Bisexual 07/30/2023 3: 24 PM EDT documented as of this encounter Plan of Treatment Not on file documented as of this encounter Visit Diagnoses Diagnosis Chlamydia- Primary Other specified chlamydial infection, in conditions classified elsewhere and of unspecified site documented in this encounter Additional Health Concerns Infection Onset Date Last Indicated Resolved Time COVID-19 Rule-Out 07/11/2023 07/11/2023 07/11/2023 5:57 PM EDT documented as of this encounter Care Teams Inside Meter Tester Relationship Specialty Start Date End Date Services, [facility] [address] [place], [place] PCP - General Family Medicine 05/01/24 documented as of this encounter
--- OUTSIDE RECORDS SUMMARY | 2024-09-07 12:16 | XMS_ITS | Encounter Summary ---
Author Organization [employer] [facility] tem Address [id number] [address] [place] [address] Care Team Providers Care Carry All Driver Name Role Phone [facility] Primary Care Provider Encounter Details Date Type Department Care Team (Late st Contact Info) Description 10/02/2022 Documentation [facility] Certified Nurse Mechanical Service Specialist - [place] [address] [facility] [address] [place] [address] Leah Hernandez RN Social History Tobacco Use Types Packs/Day Years [...] Diagnoses Not on filedocumented in this encounter Additional Health Concerns Infection Onset Date Last Indicated Resolved Time COVID-19 Rule-Out 07/11/2023 07/11/2023 07/11/2023 5:57 PM EDT documented as of this encounter Care Teams Carry All Driver Relationship Specialty Start Date End Date Services, [facility] [address] [place], [place] PCP - General Family Medicine 05/01/24 documented as of this encounter
--- OUTSIDE RECORDS SUMMARY | 2024-09-07 12:16 | XMS_ITS | Encounter Summary ---
Author Organization [facility] Address [address] [place] [address] Care Team Providers Care Inspector Watch Parts Name Role Phone Nano Back Unavailable Encounter Details Date Type Department Care Team (Late st Contact Info) Description 05/22/2023 Abstract [facility] [address] [place] [address] Margi Marie LPN [address] [facility] [address] [place] [place] [address] Social History Tobacco Use Types Packs/Day Years [...] Description 10/05/2024 11:10 AM EDT Routine [facility] [address] [place] [address] Robert Marrero DO [address] [facility] Jorge Velásquez [facility] documented as of this encounter Visit Diagnoses Not on filedocumented in this encounter Care Teams Inspector Watch Parts Relationship Specialty Start Date End Date Nano Back PA [address] [facility] [address] [place], [facility]11 [facility] 01/07/24 documented as of this encounter
--- OUTSIDE RECORDS SUMMARY | 2024-09-07 12:16 | XMS_ITS | Encounter Summary ---
Author Organization [facility] Address [address] [place] [address] Care Team Providers Care Seo Professional Name Role Phone Nazanin, Nano MILLS Unavailable Encounter Details Date Type Department Care Team (Late st Contact Info) Description 08/25/2024 Abstract [facility] [address] [place] [address] Robert Marrero DO [facility] Diamond Lamb, [facility] Social History Tobacco Use Types Packs/Day Years [...] Routine [facility] [address] [place] [address] Robert Marrero DO [address] [place], [facility]11 documented as of this encounter Visit Diagnoses Not on filedocumented in this encounter Care Teams Seo Professional Relationship Specialty Start Date End Date Nano Back PA [address] [place] [address] [place] [address] PCP - [facility] 01/07/24 documented as of this encounter
--- OUTSIDE RECORDS SUMMARY | 2024-09-07 12:16 | XMS_ITS | Encounter Summary ---
Author Organization [employer] [facility] tem Address [id number] [address] [place] [address] Care Team Providers Care Form Building Supervisor Name Role Phone Services, On License Of [facility] Primary Care Provider Encounter Details Date Type Department Care Team (Late st Contact Info) Description 08/14/2022 Orders Only [facility] Certified Nurse Follow Up Specialist - [place] [address] [facility] [address] [place] [address] External, Scanning Provider Social History Tobacco Use Types Packs/Day Years [...] on file documented as of this encounter Procedures Procedure Name Priority Date/Time Associated Diagnosis Comments CBC W AUTO DIFF BLD Routine 08/11/2022 US PREG LESS THAN 14 WKS SINGLE Routine 08/11/2022 HCG-BETA, SERUM Routine 08/11/2022 COMPREHENSIVE METABOLIC PANEL Routine 08/11/2022 documented in this encounter Results * HCG, Quantitative, (08/11/2022) us Scanning Provider External LAB BLOOD ORDERABLES Final Result MANUALLY TRANSCRIBED RESULTS * Comprehensive metabolic panel (08/11/2022) us Scanning Provider External LAB BLOOD ORDERABLES Final Result Performing Organization Address [facility] de Phone Number MANUALLY TRANSCRIBED RESULTS * CBC W Auto Diff Bld (08/11/2022) us Scanning Provider External LAB BLOOD ORDERABLES Final Result Performing Organization Address [facility] de Phone Number MANUALLY TRANSCRIBED RESULTS * Ultrasound less than 14 weeks single (08/11/2022) Anatomical Region Laterality Modality OB-EDUCATION TEACHER Ultrasound us Scanning Provider External IMG US ORDERABLES Fin al Result documented in this encounter Visit Diagnoses Not on filedocumented in this encounter Additional Health Concerns Infection Onset Date Last Indicated Resolved Time COVID-19 Rule-Out 07/11/2023 07/11/2023 07/11/2023 5:57 PM EDT documented as of this encounter Care Teams Form Building Supervisor Relationship Specialty Start Date End Date Services, On License Of [facility] [address] [place], [place] PCP - General Family Medicine 05/01/24 documented as of this encounter
--- OUTSIDE RECORDS SUMMARY | 2024-09-07 12:16 | XMS_ITS | Encounter Summary ---
Author Organization [facility] Address [address] [place] [address] Care Team Providers Care Sod Farmer Name Role Phone Nano Back Unavailable Encounter Details Date Type Department Care Team (Late st Contact Info) Description 08/20/2023 Abstract [facility] [address] [place] [address] Margi Marie LPN [address] [facility] [place] [address] Social History Tobacco Use Types Packs/Day Years [...] Description 10/05/2024 11:10 AM EDT Routine [facility] OB [address] [place] [address] Robert Marrero DO [facility] Jorge Velásquez [facility]11 documented as of this encounter Visit Diagnoses Not on filedocumented in this encounter Care Teams Sod Farmer Relationship Specialty Start Date End Date Nano Back PA [address] [facility] [address] [place], [facility]11 [facility] 01/07/24 documented as of this encounter
--- OUTSIDE RECORDS SUMMARY | 2024-09-07 12:16 | XMS_ITS | Encounter Summary ---
Author Organization [facility] Address [address] [place] [address] Care Team Providers Care French Binding Folder Name Role Phone Nano Back Unavailable Encounter Details Date Type Department Care Team (Late st Contact Info) Description 06/18/2023 Abstract [facility] OB [address] [place] [address] Margi Marie LPN 102 [facility] Jorge [place] [address] Social History Tobacco Use Types Packs/Day Years [...] Description 10/05/2024 11:10 AM EDT Routine [facility] OB [address] [employer] [place] [address] Robert Marrero DO 102 [facility] Jorge Velásquez [facility] documented as of this encounter Visit Diagnoses Not on filedocumented in this encounter Care Teams French Binding Folder Relationship Specialty Start Date End Date Nano Back PA [address] [facility] [address] [place], [facility]11 [facility] - [facility] 01/07/24 documented as of this encounter
--- OUTSIDE RECORDS SUMMARY | 2024-09-07 12:16 | XMS_ITS | Clinical Summary ---
Author Organization [facility] Address [address] [place] [address] Care Team Providers Care Chicken Handler Name Role Phone Nano Back Unavailable Allergies Active Allergy Reactions Criticality Noted Date Comments Azithromycin 04/23/2023 Macrolides And Ketolides Unknown 04/30/2023 Metronidazole GI intolerance 07/09/2023 Other Reaction(s): Vomiting Wound Dressing Adhesive 05/02/2023 Medications 27-1 MG tablet Take 1 tablet by mouth Daily 2 Active docusate sodium (Colace) 100 MG capsuleIndication s:Constipation, unspecified constipation type Take 1 capsule (100 mg) by mouth in the morning and 1 capsule (100 mg) before bedtime. Do all this for 10 days. 20 capsule 5 09/18/19 25 Active metoclopramide (Reglan) 10 MG tabletIndications :Nausea and vomiting in Take 1 tablet (10 mg) by mouth in the morning and 1 tablet (10 mg) at noon and 1 tablet (10 mg) in the evening. Take before meals. Take 1 tablet by mouth 30 minutes prior to meals 3 times daily as needed for nausea. 90 tablet 5 10/08/19 25 Active metoclopramide (Reglan) 10 MG tabletIndications :Nausea and vomiting in Take 1 tablet (10 mg) by mouth in the morning and 1 tablet (10 mg) at noon and 1 tablet (10 mg) in the evening. Take before meals. Take 1 tablet by mouth 30 minutes prior to meals 3 times daily as needed for nausea. 90 tablet 04/21/09/08/19 25 Discontinu ed(Reorder ) Active Problems Problem Noted Date Diagnosed Date 38 weeks gestation of 11/28/2023 Estimated Date of Delivery Comme nts Yes 03/14/2025 Based on Ultraso und Encounters Date Type Department Care Team Description 09/07/2024 10:50 AM EDT Routine [facility] OB [address] [place] [address] Robert Marrero, Constipation, unspecified constipation type (Primary Dx); First trimester ; 13 weeks gestation of ; Nausea and vomiting in 09/07/2024 Bamboo flowsheet [facility] OB [address] [place] [address] Robert Marrero, 08/25/2024 Abstract [facility] OB [address] [place] [place] [address] [place] [address] Robert Marrero, 08/25/2024 Abstract [facility] OB [address] [place] [place] [address] [place] [address] Robert Marrero, 08/21/2024 Abstract [facility] OB [address] [place] [place] [address] [place] [address] Zaida Tavares MA 08/21/2024 Abstract [facility] OB [address] [place] [place] [address] [place] [address] Zaida Tavares MA 08/21/2024 Abstract [facility] OB [address] [place] [address] [place] [address] Zaida Tavares MA 08/18/2024 Clinisync Result Encounter [facility] External Department Unsolicited Robert Marrero, DO 08/11/2024 Patient Outreach [facility] [address] [place] [address] Nano Melendez LPN 08/10/2024 Telephone [facility] OB [address] [place] [address] Robert Marrero DO 08/06/2024 1:30 PM EDT Initial NOM[facility] [address] [place] [address] GA: [id number] 08/06/2024 1:00 PM EDT Ancillary Procedure [facility] [address] [place] [address] Missed menses 07/27/20[address] Telephone [address] [address] [place] [address] Janna Jansen, HEALTH SAFETY AND ENVIRONMENT MANAGER 07/03/2024 Clinisync Result Encounter [facility] External Department Unsolicited Robert Marrero, 07/01/2024 Clinisync Result Encounter [facility] External Department Unsolicited Robert Marrero, 06/30/2024 Telephone [facility] [address] [place] [address] Robert Marrero DO from Last 3 Months Family History Medical History Relation Name Comments No Known Problems Father Cancer Mother Rachelle Cancer Mother's Sister Relation Name Status Comments Father Alive Mother Rachelle Mother's Sister Social History Tobacco Use Types Packs/Day Years Used Date Smoking Tobacco: Never Smokeless Tobacco: Never Tobacco Cessation:Counseling Given: Not [...] Orientation Straight 05/01/2023 12 :34 PM EST Last Filed Vital Signs Vital Sign Reading Time Taken Comments Blood Pressure 108/80 09/07/2024 11:13 AM EDT Pulse - - Temperature - - Respiratory Rate - - Oxygen Saturation - - Inhaled Oxygen Concentration - - Weight 115 kg (254 lb 8 oz) 09/07/2024 11:13 AM EDT Height 167.6 cm (5' 6 ) 08/08/2022 12:00 PM EDT Body Mass Index 41.08 08/08/2022 12:00 PM EDT Plan of Treatment Upcoming Encounters Date Type Department Care Team (Late st Contact Info) Description 10/05/2024 11:10 AM EDT Routine [facility] [address] [facility] [place] [phone] Robert Marrero, DO [address] [facility] [place] [address] Health Maintenance Due Date Last Done Comments Influenza Vaccine (Season Ended) 2024 Procedures Procedure Name Priority Date/Time Associated Diagnosis Comments POCT URINALYSIS DIPSTICK Routine 09/07/2024 11:19 AM EDT First trimester HBSAG SCREEN Routine 08/18/2024 4:40 PM EDT RAPID PLASMA REAGIN, QUANT Routine 08/18/2024 4:40 PM EDT HIV AB/P24 AG WITH REFLEX Routine 08/18/2024 4:40 PM EDT ALL CBC WITH AUTO DIFF Routine 08/18/2024 4:40 PM EDT MLR HEMOGLOBIN A1C Routine 08/18/2024 4: 40 PM EDT ALL TYPE AND SCREEN Routine 08/18/2024 4 :40 PM EDT BOX TEST Routine 08/18/2024 4:40 PM EDT [facility] DRUG SCREEN RAPID (URINE) Routine 08/18/2024 3:30 PM EDT POCT , URINE Routine 08/06/2024 3:59 PM EDT Missed menses POCT URINALYSIS DIPSTICK Routine 08/06/2024 3:58 PM EDT Missed menses US OB TRANSVAGINAL Routine 08/06/2024 1: 33 PM EDT Missed menses [facility] PREG QUANT HCG Routine 07/03/2024 9: 53 AM EDT [facility] PREG QUANT HCG Routine 07/01/2024 11 :54 AM EDT from Last 3 Months Results * (ABNORMAL) POCT urinalysis dipstick manually resulted (09/07/2024 11:19 AM EDT) Only the most recent of2 resultswithin the time period is included. Color, UA Yellow Clarity, UA Clear Glucose, UA Negative Negative - 2000(110) ++++ mg/dL Bilirubin, UA Positive Negative - 4(70) +++ mg/dL Comment:small Ketones, UA Positive Negative - 160(16) ++++ mg/dL Comment:15mg/dL Spec Grav, UA 1.020 1 - 1.03 Blood, UA Negative Negative - 50 Villa/mcL pH, UA 7.5 5 - 9 Protein, UA Positive Negative - 2000(20) ++++ mg/dL Comment:30mg/dL Urobilinogen, UA 2.0 0.2 - 12 mg/dL Leukocytes, UA Trace Negative - 500+++ Pierre/mcL Nitrite, UA Negative Negative - Positive Urine 09/07/2024 11:1 9 AM EDT us Robert Janes DO POINT OF CARE TEST ENTER/EDIT OR DERABLES Final Result * BOX TEST (08/18/2024 4:40 PM EDT) BOX TEST SENT OUT UNITY BOX [facility] BOX1 UNITY [facility] BOX2 08/18/24 [facility] 08/18/2024 4:40 PM EDT 08/18/2024 5:01 PM EDT Narrative CLINISYNC - 08/18/2024 6:09 PM EDT UNITY BOX us Robert Janes DO LAB BLOOD ORDERABLES Final Resul t Performing Organization Address [facility] de Phone Number [facility] * HBSAG SCREEN (08/18/2024 4:40 PM EDT) [facility] HBSAG SCREEN Negative Negative [facility] Comment: Performed at: [address] [id number] Exhaust And Muffler Fitter: Yvan Bolton PhD, Phone: [phone] 08/18/2024 4:40 PM EDT 08/18/2024 5:10 PM EDT Narrative CLINISYIN - 08/20/2024 12:12 PM EDT [employer] LAB BLOOD ORDERABLES Final Resul t Performing Organization Address [facility] Phone Number [facility] * RAPID PLASMA REAGIN, QUANT (08/18/2024 4:40 PM EDT) [facility] RAPID PLASMA REAGIN, QUANT Non Reactive NonRea<1: 1 titer [facility] Comment: Please Note: This test does not meet current guidelines for screening and diagnosis of syphilis. This test is intended for following treatment response in patients being treated for syphilis infection. To screen for syphilis infection, a reflex cascade that includes both RPR and a treponema-specific assay should be utilized, such as Treponema pallidum (Syphilis) Screening [place] (002666) or Rapid Plasma Reagin (RPR) Test With Reflex to Quantitative RPR and Confirmatory Treponema pallidum Antibodies (539944). Performed at: [address] [id number] Exhaust And Muffler Fitter: Yvan Bolton PhD, Phone: [phone] 08/18/2024 4:40 PM EDT 08/18/2024 5:10 PM EDT Narrative CLINISYIN - 08/20/2024 12:12 PM EDT Jeds Barbeque and Brewo DO LAB BLOOD ORDERABLES Final Resul t Performing Organization Address [facility] de Phone Number [facility] * HIV AB/P24 AG WITH REFLEX (08/18/2024 4:40 PM EDT) HIV AB/P24 AG SCREEN Non Reactive Non Reactive [facility] Comment: HIV-1/HIV-2 antibodies and HIV-1 p24 antigen were NOT detected. There is no laboratory evidence of HIV infection. HIV Negative Performed at: - [facility] [id number] Exhaust And Muffler Fitter: Yvan Bolton PhD, Phone: [phone] 08/18/2024 4:40 PM EDT 08/18/2024 5:10 PM EDT Narrative CLINISYNC - 08/20/2024 6:07 AM EDT Robert Janes DO LAB BLOOD ORDERABLES Final Resul t Performing Organization Address City/[facility]/ZIP Co de Phone Number [facility] * MLR HEMOGLOBIN A1C (08/18/2024 4:40 PM EDT) Pathologist [facility] GLYCOHEMOGLOBIN A1C 5.5 4.5 - 6.2 % [facility] Comment: ADA RECOMMENDED LIMIT 4.0 - 6.0 ADA THERAPEUTIC TARGET < 7.0 ACTION SUGGESTED > 7.0 ESTIMATED AVERAGE GLUCOSE 111 mg/dL [facility] 08/18/2024 4:40 PM EDT 08/18/2024 5:01 PM EDT Narrative CLINISYNC - 08/18/2024 6:52 PM EDT Robert Janes DO CLINISYNC Final Result [facility] * ALL TYPE AND SCREEN (08/18/2024 4:40 PM EDT) Pathologist [facility] BLOOD TYPE A Positive [facility] ANTIBODY SCREEN NEGATIVE TB 08/18/2024 4:40 PM EDT 08/18/2024 5:01 PM EDT Narrative CLINISYNC - 08/18/2024 6:18 PM EDT [facility] , us Robert Janes DO CLINISYNC Final Result RAS[place] [facility] * (ABNORMAL) ALL CBC WITH AUTO DIFF (08/18/2024 4:40 PM EDT) [facility] TB WBC 11.4(H) 4.0 - 11.0 10 3/uL [facility] TBH RBC 4.58 4.20 - 5.40 10 6/uL [facility] TBH HGB 12.6 12.0 - 16.0 g/dL [facility]H TBH HCT 38.6 36.0 - 48.0 % [facility] TBH MCV 84.3 81.0 - 99.0 fL TBH TBH MCH 27.5 26.7 - 34.0 pg TBH TBH MCHC 32.6 29.9 - 35.2 g/dL TBH TBH RDW 13.2 11.0 - 15.0 % [facility]H TBH PLT 318 150 - 450 10 3/uL TBH TBH MPV 11.0 9.5 - 13.5 fL [facility]H NEUTROPHILS PERCENT AUTO 65.4 43.0 - 75.0 % [facility]H LYMPHOCYTES PERCENT AUTO 25.7 20.5 - 60.0 % [facility] MONOCYTES PERCENT AUTO 7.7 1.7 - 12.0 % [facility]H [facility]H EO % 0.5(L) 0.9 - 7.0 % [facility] BASOPHILS PERCENT AUTO 0.4 0.2 - 2.0 % [facility] IMMATURE GRANULOCYTES PCT AUTO 0.3 0.0 - 0.5 % [facility]H NEUTROPHILS ABSOLUTE AUTO 7.5(H) 1.4 - 6.5 10 3/uL TBH LYMPHOCYTES ABSOLUTE AUTO 2.9 1.2 - 3.8 10 3/uL TBH MONOCYTES ABSOLUTE AUTO 0.9(H) 0.3 - 0.8 10 3/uL TBH TBH EO # 0.1 0.0 - 0.7 10 3/uL TBH BASOPHILS ABSOLUTE AUTO 0.1 0.0 - 0.1 10 3/uL [facility] IMMATURE GRANULOCYTES ABS AUTO 0.03 0.00 - 0.03 10 3/uL [facility] 08/18/2024 4:40 PM EDT 08/18/2024 5:01 PM EDT Narrative CLINISYNC - 08/18/2024 7:14 PM EDT Robert Janes DO CLINISYNC Final Result Performing Organization Address City/[facility]/ZIP Co de Phone Number [facility] * [facility] DRUG SCREEN RAPID (URINE) (08/18/2024 3:30 PM EDT) CANNABINOID SCREEN URINE NEGATIVE NEGATIVE TBH PHENCYCLIDINE SCREEN URINE NEGATIVE NEGATIVE TBH COCAINE SCREEN URINE NEGATIVE NEGATIVE TBH METHAMPHETAMINES SCREEN URINE NEGATIVE NEGATIVE TBH OPIATE SCREEN URINE NEGATIVE NEGATIVE TBH AMPHETAMINE SCREEN URINE NEGATIVE NEGATIVE TBH BENZODIAZEPINES SCREEN URINE NEGATIVE NEGATIVE TBH TRICYCLIC ANTIDEPRESSANT URINE NEGATIVE NEGATIVE TBH METHADONE SCREEN URINE NEGATIVE NEGATIVE TBH BARBITURATES SCREEN URINE NEGATIVE NEGATIVE TBH OXYCODONE SCREEN URINE NEGATIVE NEGATIVE TBH BUPRENORPHINE SCREEN URINE NEGATIVE NEGATIVE TB[facility] Comment: DRUG CLASS TEST SYSTEM CUT-OFF CONCENTRATIONS ARE FOLLOWS: AMP (Amphetamine): 500 ng/mL BAR (Barbiturates): 200 ng/mL BZO (Benzodiazepines): 150 ng/mL BUP (Buprenorphine): 10 ng/mL KRISTINA (Cocaine): 150 ng/mL mAMP (Methamphetamine): 500 ng/mL MTD (Methadone): 200 ng/mL OPI (Opiates): 100 ng/mL OXY (Oxycodone): 100 ng/mL PCP (Phencyclidine): 25 ng/mL THC (Cannabinoids): 50 ng/mL TCA (Trycyclic Antidepressants): 300 ng/mL 08/18/2024 3:30 PM EDT 08/18/2024 5:01 PM EDT Narrative CLINISYNC - 08/18/2024 9:33 PM EDT Robert Janes DO CLINISYNC Final Result [facility] * (ABNORMAL) POCT , urine manually resulted (08/06/2024 3:59 PM EDT) Preg Test, Ur Positive Negative Urine 08/06/2024 3:59 PM EDT Robert Janes DO POINT OF CARE TEST ENTER/EDIT OR DERABLES Final Result * US OB transvaginal (08/06/2024 1:33 PM EDT) Anatomical Region Laterality Modality Body Ultrasound 08/06/2024 6:29 PM EDT Narrative 08/06/2024 6:29 PM EDT TITLE OF EXAM: OB Ultrasound: REASON FOR EXAM: Dating COMPARISON: None TECHNIQUE: Grayscale and M-mode Doppler imaging is performed. FINDINGS: Measurements: heart rate: 176 bpm Sac: 3.5 cm CRL: 2.0 cm GA for sonogram: 8.6 wk (07.9-09.3) Cervix Length: 3.7 cm MONIQUE: 03/14/2025 Anatomy Observed: Gestational Sac: Visualized Yolk Sac: Visualized Pole: Visualized Cardiac Activity: Visualized 176 bpm Uterus: Normal Uterine Position: Anteverted, anteflexed Right Ovary: 2.7 x 1.7 x 1.6 cm Volume: 3.9 cc Normal Left Ovary: 2.6 x 2.6 x 2.5 cm Volume: 8.9 cc Normal Cervical Length: 3.7 cm Closed LMP unknown. Gestational sac, yolk sac and pole are visualized. cardiac activity 176 bpm. Uterus is of normal size and position. The ovaries are normal in size and morphology. An anechoic left ovarian nodule is present consistent with a small corpus luteum cyst. Cervical length 3.7 cm. Os closed. AUA based on today's ultrasound 8 weeks 4 days. MONIQUE March 14, 2025. IMPRESSION: 1. Single living intrauterine gestation. 8 weeks 4 days based on today's ultrasound. MONIQUE March 14, 2025. 2. Small left corpus luteum ovarian cyst. 3. Routine OB follow-up. Recommend ultrasound at 20 to 22 weeks gestational age for growth and anatomy scan. *This report is generated using voice recognition reporting ([employer]). On occasion [employer] erroneously drops words from the report or replaces the spoken word with similar sounding words. Please call with any questions/concerns regarding this report.* Dictated and transcribed 08/06/24/dpd This report has been electronically signed and approved by the interpreting radiologist. Procedure Note Zak Donahue MD - 08/06/2024 TITLE OF EXAM: OB Ultrasound: REASON FOR EXAM: Dating COMPARISON: None TECHNIQUE: Grayscale and M-mode Doppler imaging is performed. FINDINGS: Measurements: heart rate: 176 bpm Sac: 3.5 cm CRL: 2.0 cm GA for sonogram: 8.6 wk (07.9-09.3) Cervix Length: 3.7 cm MONIQUE: 03/14/2025 Anatomy Observed: Gestational Sac: Visualized Yolk Sac: Visualized Pole: Visualized Cardiac Activity: Visualized 176 bpm Uterus: Normal Uterine Position: Anteverted, anteflexed Right Ovary: 2.7 x 1.7 x 1.6 cm Volume: 3.9 cc Normal Left Ovary: 2.6 x 2.6 x 2.5 cm Volume: 8.9 cc Normal Cervical Length: 3.7 cm Closed LMP unknown. Gestational sac, yolk sac and pole are visualized. cardiac activity 176 bpm. Uterus is of normal size and position. The ovaries are normal in size and morphology. An anechoic left ovariannodule is present consistent with a small corpus luteum cyst. Cervical length 3.7 cm. Os closed. AUA based on today's ultrasound 8 weeks 4 days. MONIQUE March 14, 2025. IMPRESSION: 1. Single living intrauterine gestation. 8 weeks 4 days based on today'sultrasound. MONIQUE March 14, 2025. 2. Small left corpus luteum ovarian cyst. 3. Routine OB follow-up. Recommend ultrasound at 20 to 22 weeksgestational age for growth and anatomy scan. *This report is generated using voice recognition reporting ([employer] - A First of Its Kind Flip Flop).On occasion [employer] Its [employer] erroneously drops words from the report orreplaces the spoken word with similar sounding words. Please call with anyquestions/concerns regarding this report.* Dictated and transcribed 08/06/24/dpd This report has been electronically signed and approved by theinterpreting radiologist. us Robert Janes DO IM OB US PROCEDURES Final Resul t * [facility]H PREG QUANT HCG (07/03/2024 9:53 AM EDT) Only the most recent of2 resultswithin the time period is included. HCG QUANTITATIVE 59 mIU/mL [facility] Comment: 5-50 0.2-1 WEEK 50-500 1-2 WEEKS 100-5,000 2-3 WEEKS 500-10,000 3-4 WEEKS 1,000-50,000 4-5 WEEKS 10,000-100,000 5-6 WEEKS 15,000-200,000 6-8 WEEKS 10,000-100,000 2-3 MONTHS 07/03/2024 9:53 AM EDT 07/03/2024 9:55 AM EDT Narrative CLINISYNC - 07/03/2024 11:05 AM EDT us Robert Janes DO CLINISYNC Final Result CLINISYNC [facility] from Last 3 Months Insurance [employer] Care Teams Chicken Handler Relationship Specialty Start Date End Date Nano Back PA [address] [place] [address] [place] [address] PCP - [facility] 01/07/24
--- OUTSIDE RECORDS SUMMARY | 2024-09-07 12:16 | XMS_ITS | Encounter Summary ---
Author Organization [facility] Address [address] [place] [address] Care Team Providers Care Magician/Illusionist Name Role Phone Nazanin Nano MILLS Unavailable Encounter Details Date Type Department Care Team (Late st Contact Info) Description 09/07/2024 Bamboo flowsheet [facility] OB [address] [place] [address] Robert Marrero DO [facility] [address] [place], [place] [address] Social History Tobacco Use Types Packs/Day Years [...] Routine [facility] OB [address] [place] [address] Robert Marrero DO [facility] [place], [facility]11 documented as of this encounter Visit Diagnoses Not on filedocumented in this encounter Care Teams Magician/Illusionist Relationship Specialty Start Date End Date Nano Back PA [address] [place] [address] [place], [place] [id number] PCP - [facility] 01/07/24 documented as of this encounter
--- OUTSIDE RECORDS SUMMARY | 2024-09-07 12:16 | XMS_ITS | Encounter Summary ---
Author Organization [facility] Address [address] [facility] [place] [address] Care Team Providers Care Spotlight Operator Name Role Phone Nano Back Unavailable Encounter Details Date Type Department Care Team (Late Contact Info) Description 11/15/2023 Abstract [facility] OB [address] [facility] [place] [address] Robert Marrero [facility] [place] [address] [place], [facility]11 Social History Tobacco Use Types Packs/Day [...] Description 10/05/2024 11:10 AM EDT Routine NOM[facility] OB [address] [facility] [address] Robert Marrero [facility] [place], [facility]11 documented as of this encounter Visit Diagnoses Not on filedocumented in this encounter Care Teams Spotlight Operator Relationship Specialty Start Date End Date Nano Back PA [address] [place] [address] Dr [place], [facility]11 PCP - [facility] 01/07/24 documented as of this encounter
--- OUTSIDE RECORDS SUMMARY | 2024-09-07 12:16 | XMS_ITS | Encounter Summary ---
Author Organization [facility] Address [address] [place] [address] Care Team Providers Care Spindle Maker Name Role Phone Nano Back Unavailable Encounter Details Date Type Department Care Team (Late st Contact Info) Description 09/10/2023 Clinisync Result Encounter [facility] External Department Unsolicited Elsi Marrero, DO [address] [place], [place] [id number] Social History Tobacco Use Types Packs/Day Years [...] AM EDT Routine [facility] [place] [address] [place] [phone] Elsi Marrero DO [address] [place] [address] documented as of this encounter Procedures Procedure Name Priority Date/Time Associated Diagnosis Comments US OB CERVICAL LENGTH 09/10/2023 3:16 PM EDT documented in this encounter Results * US OB CERVICAL LENGTH (09/10/2023 3:16 PM EDT) Anatomical Region Laterality Modality Other 09/10/2023 3:16 PM EDT Narrative 09/10/2023 3:19 [place] [address] Ultrasound Report Signed Patient: LIA DESAI MR#: [id number] : 2000 Acct:[id number] Age/Sex: 22 / F ADM Date: Loc: [facility]-[address]: Elsi Marrero D.O. Ordering Physician: Elsi Marrero D.O. Date of Service: 09/10/23 Procedure(s): US OB cervical length Accession Number(s): [id number] cc: Elsi Marrero D.O.; Physician,Non-Staff M.Corie [place] [address] Patient Name: LIA DESAI MRN: [id number] date: 2000 Sex: F Assigned Patient Location: [facility] Current Patient Location: [facility] Accession/Order Number: [id number] Exam Date: 09/10/2023 13:54 Report Date: 09/10/2023 15:16 At the request of: ELSI MARRERO Procedure: US OB cervical length EXAMINATION: US OB cervical length HISTORY: abdominal pain COMPARISON: Ultrasound OB anatomy 07/31/2023 TECHNIQUE: Transabdominal and transvaginal sonographic examination for cervical length. FINDINGS: CERVIX LENGTH: 3.6 cm, closed. POSITION: Cephalic HEART RATE: 141 bpm AMNIOTIC FLUID: Subjectively normal Age by EDC: 26 weeks 6 days MONIQUE by EDC: 12/11/2023 US/US OB cervical length IMPRESSION: 1. Single live intrauterine . 2. Closed cervix 3.6 cm in length. Electronically authenticated by: LEVI VALIENTE Date: 09/10/2023 15:16 Dictated By: Levi Valiente M.D. Signed By: 09/10/23 1519 DD/ 15 TD/TT: Vacuum Frame Operator: Procedure Note Radiology, Radiologist, MD - 09/10/2023 [place] [address] Ultrasound Report Signed Patient: LIA DESAI LMR#: [id number] : 2000Acct:[id number] Age/Sex: 22 / FADM Date: Loc: [facility] [address]: Elsi Marrero D.O. Ordering Physician: Elsi Marrero D.O. Date of Service: 09/10/23 Procedure(s): US OB cervical length Accession Number(s): [id number] cc: Elsi Marrero D.O.; Physician,Non-Staff Nena The [place] [id number] Patient Name: LIA DESAI MRN: [facility]:[id number] date: 2000 Sex: F Assigned Patient Location: [facility] Current Patient Location: [facility] Accession/Order Number: [id number] Exam Date: 09/10/2023 13:54 Report Date: 09/10/2023 15:16 At the request of: ELSI MARRERO Procedure: US OB cervical length EXAMINATION: US OB cervical length HISTORY: abdominal pain COMPARISON: Ultrasound OB anatomy 07/31/2023 TECHNIQUE: Transabdominal and transvaginal sonographic examination for cervical length. FINDINGS: CERVIX LENGTH: 3.6 cm, closed. POSITION: Cephalic HEART RATE: 141 bpm AMNIOTIC FLUID: Subjectively normal Age by EDC: 26 weeks 6 days MONIQUE by EDC: 12/11/2023 US/US OB cervical length IMPRESSION: 1. Single live intrauterine . 2. Closed cervix 3.6 cm in length. Electronically authenticated by: LEVI VALIENTE Date: 09/10/2023 15:16 Dictated By: Levi Valiente M.D. Signed By:09/10/23 1519 DD/ 15 TD/TT: Vacuum Frame Operator: us Elsi Janes DO [facility] Final Result documented in this encounter Visit Diagnoses Not on filedocumented in this encounter Care Teams Spindle Maker Relationship Specialty Start Date End Date Nano Back PA [address] [place] [address] [place] [address] PCP - [facility] 01/07/24 documented as of this encounter
--- OUTSIDE RECORDS SUMMARY | 2024-09-07 12:16 | XMS_ITS | Encounter Summary ---
Author Organization [facility] Address [address] [facility] [place] [address] Care Team Providers Care School Age Program Teacher Name Role Phone NazaninNano Unavailable Encounter Details Date Type Department Care Team (Late st Contact Info) Description 08/21/2024 Abstract [facility] OB [address] [facility] [place] [address] Zaida Tavares MA Social History Tobacco [...] Description 10/05/2024 11:10 AM EDT Routine [facility] [address] [facility] [place] [address] Robert Marrero [address] Jorge [place], [place] [address] documented as of this encounter Visit Diagnoses Not on filedocumented in this encounter Care Teams School Age Program Teacher Relationship Specialty Start Date End Date Nano Back PA [address] [place] [address] Dr [place], [facility]11 PCP - [facility] 01/07/24 documented as of this encounter
--- OUTSIDE RECORDS SUMMARY | 2024-09-07 12:16 | XMS_ITS | Encounter Summary ---
Author Organization [facility] Address [address] [place] [address] Care Team Providers Care Automated Logistics Specialist Name Role Phone Nano Back Unavailable Encounter Details Date Type Department Care Team (Late st Contact Info) Description 08/22/2023 Abstract [facility] [address] [facility] [place] [address] Margi Marie LPN [facility] [place] [address] Social History Tobacco Use Types Packs/Day Years [...] Routine [facility] OB [address] [place] [address] Robert Marrero DO [address] [facility] Jorge Velásquez [facility]11 documented as of this encounter Visit Diagnoses Not on filedocumented in this encounter Care Teams Automated Logistics Specialist Relationship Specialty Start Date End Date Nano Back PA [address] [facility] [address] [place], [facility]11 [facility] - [facility] 01/07/24 documented as of this encounter
--- OUTSIDE RECORDS SUMMARY | 2024-09-07 12:16 | XMS_ITS | Encounter Summary ---
Author Organization [facility] Address [address] [place] [address] Care Team Providers Care Distribution Tech Name Role Phone NazaninNano Unavailable Encounter Details Date Type Department Care Team (Late st Contact Info) Description 11/25/2023 Clinisync Result Encounter [facility] External Department Unsolicited Elsi Marrero, [address] [place] [id number] Social History Tobacco Use Types Packs/Day Years [...] Routine [facility] B[facility] OB [address] [place] [phone] Elsi Marrero DO [address], [place] [phone] documented as of this encounter Procedures Procedure Name Priority Date/Time Associated Diagnosis Comments US OB GROWTH 11/25/2023 4:36 PM EDT documented in this encounter Results * US OB GROWTH (11/25/2023 4:36 PM EDT) Anatomical Region Laterality Modality Other 11/25/2023 4:36 PM EDT Narrative 11/25/2023 4:38 [place] [address] Ultrasound Report Signed Patient: LIA DESAI MR#: [id number] : 2000 Acct:[id number] Age/Sex: 23 / F ADM Date: 11/25/23 Loc: [facility] Attending Dr: Elsi Marrero D.O. Ordering Physician: Elsi Marrero D.O. Date of Service: 11/25/23 Procedure(s): US OB growth Accession Number(s): [id number] cc: Elsi Marrero D.O.; Physician,Non-Staff M.DMarisabel The [place] [address] Patient Name: LIA DESAI MRN: [id number] date: 2000 Sex: F Assigned Patient Location: [facility] Current Patient Location: [facility] Accession/Order Number: [id number] Exam Date: 11/25/2023 11:30 Report Date: 11/25/2023 16:36 At the request of: ELSI MARRERO Procedure: US OB growth EXAMINATION: US OB growth HISTORY: Excessive growth O36.60X0 COMPARISON: No relevant comparison available. FINDINGS: Heart Rate: 134 bpm Amniotic Fluid Volume: 10 cm Number: 1 Position: CEPHALIC BIOMETRY: BPD: 9.26 cm; 37 weeks 4 days; 69.10 % HC: 33.37 cm; 38 weeks 1 day; 37.60 % AC: 32.41 cm; 36 weeks 2 days; 27.10 % FL: 7.30 cm; 37 weeks 3 days; 42.40 % EFW: 3052.89 g; 39.60 %, 6 lbs. 12 oz. FL/AC: 22.52 FL/BPD: 78.83 HC/AC: 1.03 GESTATIONAL AGE: Age by EDC: 37 weeks 5 days MONIQUE by EDC: 2023-12-11 Age by US: 37 weeks 3 days MONIQUE by US: 2023-12-13 US/US OB growth IMPRESSION: Normal interval growth Electronically authenticated by: CHRISTIAN KATE Date: 11/25/2023 16:36 Dictated By: Christian Kate M.D. Signed By: 11/25/231637 DD/ 35 TD/TT: Direct Support Staff Member: Procedure Note Radiology, Radiologist, MD - 11/25/2023 [place] [address] Ultrasound Report Signed Patient: LIA DESAI LMR#: [id number] : 2000Acct:[id number] Age/Sex: 23 / FADM Date: 11/25/23 Loc: [facility] Attending Dr: Elsi Marrero D.O. Ordering Physician: Elsi Marrero D.O. Date of Service: 11/25/23 Procedure(s): US OB growth Accession Number(s): [id number] cc: Elsi Marrero D.O.; Physician,Non-Staff Nena The [place] [address] Patient Name: LIA DESAI MRN: [id number] date: 2000 Sex: F Assigned Patient Location: [facility] Current Patient Location: [facility] Accession/Order Number: [id number] Exam Date: 11/25/2023 11:30 Report Date: 11/25/2023 16:36 At the request of: ELSI MARRERO Procedure: US OB growth EXAMINATION: US OB growth HISTORY: Excessive growth O36.60X0 COMPARISON: No relevant comparison available. FINDINGS: Heart Rate: 134 bpm Amniotic Fluid Volume: 10 cm Number: 1 Position: CEPHALIC BIOMETRY: BPD: 9.26 cm; 37 weeks 4 days; 69.10 % HC: 33.37 cm; 38 weeks 1 day; 37.60 % AC: 32.41 cm; 36 weeks 2 days; 27.10 % FL: 7.30 cm; 37 weeks 3 days; 42.40 % EFW: 3052.89 g; 39.60 %, 6 lbs. 12 oz. FL/AC: 22.52 FL/BPD: 78.83 HC/AC: 1.03 GESTATIONAL AGE: Age by EDC: 37 weeks 5 days MONIQUE by EDC: 2023-12-11 Age by US: 37 weeks 3 days MONIQUE by US: 2023-12-13 US/US OB growth IMPRESSION: Normal interval growth Electronically authenticated by: CHRISTIAN KATE Date: 11/25/2023 16:36 Dictated By: Christian Kate M.D. Signed By:11/25/238 DD/ 35 TD/TT: Direct Support Staff Member: us Elsi Janes DO [facility] Final Result documented in this encounter Visit Diagnoses Not on filedocumented in this encounter Care Teams Distribution Tech Relationship Specialty Start Date End Date Nano Back PA [address] [place] [address] [place] [address] [facility] - [facility] 01/07/24 documented as of this encounter
--- OUTSIDE RECORDS SUMMARY | 2024-09-07 12:16 | XMS_ITS | Encounter Summary ---
Author Organization [facility] Address [address] [place] [address] Care Team Providers Care Design Technician Name Role Phone Nano Back Unavailable Encounter Details Date Type Department Care Team (Late st Contact Info) Description 07/31/2023 Clinisync Result Encounter [facility] External Department Unsolicited Elsi Marrero, DO [address] [place], [place] [phone] Social History Tobacco Use Types Packs/Day Years [...] Description 10/05/2024 11:10 AM EDT Routine [facility] OB [address] [place] [phone] Elsi Marrero DO [facility] [place] [address] documented as of this encounter Procedures Procedure Name Priority Date/Time Associated Diagnosis Comments US OB ANATOMY 07/31/2023 12:29 PM EDT documented in this encounter Results * US OB ANATOMY (07/31/2023 12:29 PM EDT) Anatomical Region Laterality Modality Other 07/31/2023 12:2 9 PM EDT Narrative 07/31/2023 12:32 [place] [address] Ultrasound Report Signed Patient: LIA DESAI MR#: [id number] : 2000 Acct:[id number] Age/Sex: 22 / F ADM Date: 07/31/23 Loc: [facility] Attending Dr: Elsi Marrero D.O. Ordering Physician: Elsi Marrero D.O. Date of Service: 07/31/23 Procedure(s): US OB anatomy Accession Number(s): [id number] cc: Elsi Marrero D.O.; Physician,Non-Staff M.Corie [place] [id number] Patient Name: LIA DESAI MRN: [id number] date: 2000 Sex: F Assigned Patient Location: [facility] Current Patient Location: [facility] Accession/Order Number: [id number] Exam Date: 07/31/2023 10:47 Report Date: 07/31/2023 12:29 At the request of: ELSI MARRERO Procedure: US OB anatomy EXAMINATION: US OB anatomy, US OB cervical length HISTORY: ANATOMY COMPARISON: Ultrasound OB placenta and cervical length 07/15/2023 TECHNIQUE: Transabdominal sonographic examination was performed for obstetrical and evaluation. FINDINGS: Number: 1 Heart Rate: 141.0 bpm H.B. /min Amniotic Fluid Volume: Subjectively normal Placental Location: Anterior with lower margin 3.8 cm from os. Cervix Length: 4.7 cm, closed. ANATOMY: Normal Structures -cerebellum, choroid plexus, cisterna magna, lateral cerebral ventricles, orbits, midline falx, stomach, kidneys, bladder, umbilical cord insertion into abdomen, right upper extremity, left upper extremity, right lower extremity, left lower extremity. SUBOPTIMALLY SEEN: Hard palate, four-chamber heart, cardiac outflow tracts, three-vessel cord, spine ABNORMALITIES: None BIOMETRY: BPD: 4.1 cm 18 weeks 3 days ; < 3% HC: 17.6 cm 20 weeks 0 days; 9% AC: 16.9 cm 22 weeks 0 days; 73% FL: 3.6 cm 21 weeks 3 days ; 57% EFW:421.1 grams; 67% FL/AC: 21.3 FL/BPD: 88.5 HC/AC: 1.0 GESTATIONAL AGE: Age by EDC: 21 weeks 0 days MONIQUE by EDC: 12/11/2023 Age by current US: 20 weeks 3 days MONIQUE by current US: 12/15/2023 US/US OB anatomy IMPRESSION: 1. Single live intrauterine with growth detailed above. 2. Suboptimal visualization of the hard palate, four-chamber heart, cardiac outflow tracts, three-vessel cord, and spine due to maternal body habitus and position. Electronically authenticated by: LEVI VALIENTE Date: 07/31/2023 12:29 Dictated By: Levi Valiente M.D. Signed By: 07/31/23 1232 DD/ 1229 TD/TT: Cardroom Worker: Procedure Note Radiology, Radiologist, MD - 07/31/2023 [place] [address] Ultrasound Report Signed Patient: LIA DESAI LMR#: [id number] : 2000Acct:[id number] Age/Sex: 22 FADM Date: 07/31/23 Loc: [facility] Attending Dr: Elsi Marrero D.O. Ordering Physician: Elsi Marrero D.O. Date of Service: 07/31/23 Procedure(s): US OB anatomy Accession Number(s): [id number] cc: Elsi Marrero D.O.; Physician,Non-Staff Nena The [address] [address] Patient Name: LIA DESAI MRN: [id number] date: 2000 Sex: F Assigned Patient [facility]: [facility] Current Patient [facility]: [facility] Accession/Order Number: [id number] Exam Date: 07/31/2023 10:47 Report Date: 07/31/2023 12:29 At the request of: ELSI MARRERO Procedure: US OB anatomy EXAMINATION: US OB anatomy, US OB cervical length HISTORY: ANATOMY COMPARISON: Ultrasound OB placenta and cervical length 07/15/2023 TECHNIQUE: Transabdominal sonographic examination was performed for obstetrical and evaluation. FINDINGS: Number: 1 Heart Rate: 141.0 bpm H.B. /min Amniotic Fluid Volume: Subjectively normal Placental Location: Anterior with lower margin 3.8 cm from os. Cervix Length: 4.7 cm, closed. ANATOMY: Normal Structures -cerebellum, choroid plexus, cisterna magna, lateral cerebral ventricles, orbits, midline falx, stomach, kidneys, bladder, umbilical cord insertion into abdomen, right upper extremity, left upper extremity, right lower extremity, left lower extremity. SUBOPTIMALLY SEEN: Hard palate, four-chamber heart, cardiac outflowtracts, three-vessel cord, spine ABNORMALITIES: None BIOMETRY: BPD: 4.1 cm 18 weeks 3 days ; < 3% HC: 17.6 cm 20 weeks 0 days; 9% AC: 16.9 cm 22 weeks 0 days; 73% FL: 3.6 cm 21 weeks 3 days ; 57% EFW:421.1 grams; 67% FL/AC: 21.3 FL/BPD: 88.5 HC/AC: 1.0 GESTATIONAL AGE: Age by EDC: 21 weeks 0 days MONIQUE by EDC: 12/11/2023 Age by current US: 20 weeks 3 days MONIQUE by current US: 12/15/2023 US/US OB anatomy IMPRESSION: 1. Single live intrauterine with growth detailed above. 2. Suboptimal visualization of the hard palate, four-chamber heart,cardiac outflow tracts, three-vessel cord, and spine due to maternal body habitusand position. Electronically authenticated by: LEVI VALIENTE Date: 07/31/2023 12:29 Dictated By: Levi Valiente M.D. Signed By:07/31/23 1232 DD/ 1229 TD/TT: Cardroom Worker: us Elsi Marrero DO [facility] Final Result documented in this encounter Visit Diagnoses Not on filedocumented in this encounter Care Teams Design Technician Relationship Specialty Start Date End Date Nano Back PA [address] [place] [address] [place] [address] PCP - [facility] 01/07/24 documented as of this encounter
--- OUTSIDE RECORDS SUMMARY | 2024-09-07 12:16 | XMS_ITS | Encounter Summary ---
Author Organization [facility] Address [address] [place] [address] Care Team Providers Care Assistant Food Service Director Name Role Phone Nano Back Unavailable Encounter Details Date Type Department Care Team (Late st Contact Info) Description 05/07/2023 Abstract [facility] OB [address] [place] [address] Robert Marrero DO [facility] [address] [place], [facility] Social History Tobacco Use Types Packs/Day Years [...] Routine [facility] OB [address] [place] [address] Robert Marrero DO [address] [place] [id number] documented as of this encounter Visit Diagnoses Not on filedocumented in this encounter Care Teams Assistant Food Service Director Relationship Specialty Start Date End Date Nano Back [place] [facility] [place] [address] [facility] 01/07/24 documented as of this encounter
--- OUTSIDE RECORDS SUMMARY | 2024-09-07 12:16 | XMS_ITS | Encounter Summary ---
Author Organization [facility] Address [address] [facility] [place] [address] Care Team Providers Care Contour Stitcher Name Role Phone Nano Back Unavailable Encounter Details Date Type Department Care Team (Late Contact Info) Description 01/03/2024 Abstract [facility] OB [address] [facility] [place] [address] Robert Marrero [facility] Encinal Alondra [place], [facility] Social History Tobacco Use Types Packs/Day Years [...] Description 10/05/2024 11:10 AM EDT Routine [facility] OB [address] [place] [address] Robert Marrero [facility] [address] [place], [facility] documented as of this encounter Visit Diagnoses Not on filedocumented in this encounter Care Teams Contour Stitcher Relationship Specialty Start Date End Date Nano Back PA [address] [place] [address] Dr [place], [facility] PCP - [facility] 01/07/24 documented as of this encounter
--- OUTSIDE RECORDS SUMMARY | 2024-09-07 12:16 | XMS_ITS | Encounter Summary ---
Author Organization [facility] Address [address] [place] [address] Care Team Providers Care Pulp Roller Name Role Phone Nano Back Unavailable Encounter Details Date Type Department Care Team (Late st Contact Info) Description 05/15/2023 Abstract [facility] [address] [facility] [place] [address] Robert Marrero DO [address] [place] [address] Tasha [place], [facility]11 Social History Tobacco Use Types Packs/Day [...] Description 10/05/2024 11:10 AM EDT Routine [facility] OB [address] [place] [address] Robert Marrero DO [facility] [place] [id number] documented as of this encounter Visit Diagnoses Not on filedocumented in this encounter Care Teams Pulp Roller Relationship Specialty Start Date End Date Nano Back PA [address] [facility] [address] [place], [facility]11 [facility] 01/07/24 documented as of this encounter
--- OUTSIDE RECORDS SUMMARY | 2024-09-07 12:16 | XMS_ITS | Encounter Summary ---
Author Organization [facility] Address [address] [place] [address] Care Team Providers Care Subsorter Name Role Phone Nano Back Unavailable Encounter Details Date Type Department Care Team (Late st Contact Info) Description 07/31/2023 Clinisync Result Encounter [facility] External Department Unsolicited Elsi Marrero, DO [address] [place], [place] [address] Social History Tobacco Use Types Packs/Day Years [...] [facility] BCP OB [address] [place] [phone] Elsi Marrero DO [address] [place] [address] documented as of this encounter Procedures Procedure Name Priority Date/Time Associated Diagnosis Comments US OB CERVICAL LENGTH 07/31/2023 12:29 PM EDT documented in this encounter Results * US OB CERVICAL LENGTH (07/31/2023 12:29 PM EDT) Anatomical Region Laterality Modality Other 07/31/2023 12:2 9 PM EDT Narrative 07/31/2023 12:32 PM EDT [address] [address] Ultrasound Report Signed Patient: LIA DESAI MR#: [id number] : 2000 Acct:[id number] Age/Sex: 22 / F ADM Date: 07/31/23 Loc: [facility] Attending Dr: Elsi Marrero D.O. Ordering Physician: Elsi Marrero D.O. Date of Service: 07/31/23 Procedure(s): US OB cervical length Accession Number(s): [id number] cc: Elsi Marrero D.O.; Physician,Non-Staff M.DMarisabel [address] [address] Patient Name: LIA DESAI MRN: [id number] date: 2000 Sex: F Assigned Patient Location: [facility] Current Patient Location: [facility] Accession/Order Number: [id number] Exam Date: 07/31/2023 10:47 Report Date: 07/31/2023 12:29 At the request of: ELSI MARRERO Procedure: US OB cervical length EXAMINATION: US OB anatomy, US OB cervical [...] MONIQUE by current US: 12/15/2023 US/US OB cervical length IMPRESSION: 1. Single live intrauterine with growth detailed above. 2. Suboptimal visualization of the hard palate, four-chamber heart, cardiac outflow tracts, three-vessel cord, and spine due to maternal body habitus and position. Electronically authenticated by: LEVI VALIENTE Date: 07/31/2023 12:29 Dictated By: Levi Valiente M.D. Signed By: 07/31/23 1232 DD/ 1229 TD/TT: Dopeman: Procedure Note Radiology, Radiologist, MD - 07/31/2023 [place] [address] Ultrasound Report Signed Patient: LIA DESAI LMR#: [id number] : 2000Acct:[id number] Age/Sex: 22 FADM Date: 07/31/23 Loc: [facility] Attending Dr: Elsi Marrero D.O. Ordering Physician: Elsi Marrero D.O. Date of Service: 07/31/23 Procedure(s): US OB cervical length Accession Number(s): [id number] cc: Elsi Marrero D.O.; Physician,Non-Staff Nena The [place] [address] Patient Name: LIA DESAI MRN: [facility]:[id number] date: 2000 Sex: F Assigned Patient Location: [facility] Current Patient [facility]: [facility] Accession/Order Number: [id number] Exam Date: 07/31/2023 10:47 Report Date: 07/31/2023 12:29 At the request of: ELSI MARRERO Procedure: US OB cervical length EXAMINATION: US OB anatomy, US OB cervical [...] MONIQUE by current US: 12/15/2023 US/US OB cervical length IMPRESSION: 1. Single live intrauterine with growth detailed above. 2. Suboptimal visualization of the hard palate, four-chamber heart,cardiac outflow tracts, three-vessel cord, and spine due to maternal body habitusand position. Electronically authenticated by: LEVI VALIENTE Date: 07/31/2023 12:29 Dictated By: Levi Valiente M.D. Signed By:07/31/23 1232 DD/ 1229 TD/TT: Dopeman: us Elsi Marrero DO [facility] Final Result documented in this encounter Visit Diagnoses Not on filedocumented in this encounter Care Teams Subsorter Relationship Specialty Start Date End Date Nano Back PA [address] [place] [address] [place] [address] PCP - [facility] 01/07/24 documented as of this encounter
--- OUTSIDE RECORDS SUMMARY | 2024-09-07 12:16 | XMS_ITS | Encounter Summary ---
Author Organization [facility] Address [address] [place] [address] Care Team Providers Care Automotive Manufacturer Name Role Phone Nano Back Unavailable Encounter Details Date Type Department Care Team (Late st Contact Info) Description 07/29/2023 Abstract [facility] OB [address] [place] [address] Margi Marie LPN [address] [facility] Jorge [place] [address] Social History Tobacco Use Types Packs/Day Years [...] Description 10/05/2024 11:10 AM EDT Routine [facility] OB [address] [place] [address] Robert Marrero DO 102 [facility] Jorge Velásquez [facility] documented as of this encounter Visit Diagnoses Not on filedocumented in this encounter Care Teams Automotive Manufacturer Relationship Specialty Start Date End Date Nano Back PA [address] [facility] [address] [place], [facility] 01/07/24 documented as of this encounter
--- OUTSIDE RECORDS SUMMARY | 2024-09-07 12:16 | XMS_ITS | Encounter Summary ---
Author Organization [employer] [facility] tem Address [id number] [address] [place] [address] Care Team Providers Care Glass Tinter Name Role Phone [facility] Primary Care Provider Encounter Details Date Type Department Care Team (Late st Contact Info) Description 08/30/2022 Orders Only [facility] Certified Nurse Hydraulic Barker Operator - [place] [address] [facility] [address] [place] [address] Leah Hernandez RN Miscarriage Social History Tobacco Use Types Packs/Day Years [...] as of this encounter Visit Diagnoses Diagnosis Miscarriage Unspecified spontaneous without mention of complication documented in this encounter Additional Health Concerns Infection Onset Date Last Indicated Resolved Time COVID-19 Rule-Out 07/11/2023 07/11/2023 07/11/2023 5:57 PM EDT documented as of this encounter Care Teams Glass Tinter Relationship Specialty Start Date End Date Services, Replaced By [facility] [address] [place], [place] PCP - General Family Medicine 05/01/24 documented as of this encounter
--- OUTSIDE RECORDS SUMMARY | 2024-09-07 12:16 | XMS_ITS | Encounter Summary ---
Author Organization [facility] Address [address] [facility] [place] [address] Care Team Providers Care Travel Professional Name Role Phone NazaninNano Unavailable Encounter Details Date Type Department Care Team (Late st Contact Info) Description 08/21/2024 Abstract [facility] OB [address] [place] [address] Zaida Tavares MA Social History Tobacco [...] Description 10/05/2024 11:10 AM EDT Routine [facility] [address] [place] [address] Robert Marrero [address] [place], [place] [address] documented as of this encounter Visit Diagnoses Not on filedocumented in this encounter Care Teams Travel Professional Relationship Specialty Start Date End Date Nano Back PA [address] [place] [address] Dr [place], [facility] PCP - [facility] 01/07/24 documented as of this encounter
--- OUTSIDE RECORDS SUMMARY | 2024-09-07 12:16 | XMS_ITS | Encounter Summary ---
Author Organization [facility] Address [address] [place] [address] Care Team Providers Care Campground Manager Name Role Phone Nano Back Unavailable Encounter Details Date Type Department Care Team (Late st Contact Info) Description 08/28/2023 Clinisync Result Encounter [facility] External Department Unsolicited Elsi Marrero, DO [address] [place], [place] [id number] Social History Tobacco Use Types Packs/Day Years [...] Description 10/05/2024 11:10 AM EDT Routine [facility] OB [address] [facility] [place] [id number] Elsi Marrero DO [facility] [place] [address] documented as of this encounter Procedures Procedure Name Priority Date/Time Associated Diagnosis Comments US OB FOLLOW UP 08/28/2023 10:11 AM EDT documented in this encounter Results * US OB FOLLOW UP (08/28/2023 10:11 AM EDT) Anatomical Region Laterality Modality Radiographic Nafisa ging 08/28/2023 10:1 1 AM EDT Narrative 08/28/2023 10:14 [place] [address] Ultrasound Report Signed Patient: LIA DESAI MR#: [id number] : 2000 Acct:[id number] Age/Sex: 22 / F ADM Date: 08/28/23 Loc: [facility] Attending Dr: Elsi Marrero D.O. Ordering Physician: Elsi Marrero D.O. Date of Service: 08/28/23 Procedure(s): US OB follow up Accession Number(s): [id number] cc: Elsi Marrero D.O.; Physician,Non-Staff [place] [id number] Patient Name: LIA DESAI MRN: [id number] date: 2000 Sex: F Assigned Patient Location: [facility] Current Patient Location: [facility] Accession/Order Number: [id number] Exam Date: 08/28/2023 08:34 Report Date: 08/28/2023 10:11 At the request of: ELSI MARRERO Procedure: US OB follow up EXAMINATION: US OB follow up HISTORY: INCOMPLETE ANATOMY COMPARISON: 07/31/2023 FINDINGS: position: Cephalic presentation, longitudinal lie Heart rate: 144 bpm Normal observed anatomy: Four-chamber heart, RVOT, LVOT, hard palate, three-vessel cord Suboptimal visualization: Grossly normal spine, Limited visualization secondary to maternal body habitus Clinical age: 25 weeks 0 days Clinical MONIQUE: 12/11/2023 US/US OB follow up IMPRESSION: Normal observed anatomy Electronically authenticated by: CHRISTIAN KATE Date: 08/28/2023 10:11 Dictated By: Christian Kate M.D. Signed By: 08/28/23 1014 DD/ 1011 TD/TT: Database Operator: Procedure Note Radiology, Radiologist, - 08/28/2023 The [place] [id number] Ultrasound Report Signed Patient: LIA DESAI LMR#: [id number] : 2000Acct:[id number] Age/Sex: 22 / FADM Date: 08/28/23 Loc: [facility] Attending Dr: Elsi Marrero D.O. Ordering Physician: Elsi Marrero D.O. Date of Service: 08/28/23 Procedure(s): US OB follow up Accession Number(s): [id number] cc: Elsi Marrero D.O.; Physician,Non-Staff Nena The [place] [id number] Patient Name: LIA DESAI MRN: [id number] date: 2000 Sex: F Assigned Patient Location: [facility] Current Patient Location: [facility] Accession/Order Number: [id number] Exam Date: 08/28/2023 08:34 Report Date: 08/28/2023 10:11 At the request of: ELSI MARRERO Procedure: US OB follow up EXAMINATION: US OB follow up HISTORY: INCOMPLETE ANATOMY COMPARISON: 07/31/2023 FINDINGS: position: Cephalic presentation, longitudinal lie Heart rate: 144 bpm Normal observed anatomy: Four-chamber heart, RVOT, LVOT, hard palate, three-vessel cord Suboptimal visualization: Grossly normal spine, Limited visualization secondary to maternal body habitus Clinical age: 25 weeks 0 days Clinical MONIQUE: 12/11/2023 US/US OB follow up IMPRESSION: Normal observed anatomy Electronically authenticated by: CHRISTIAN KATE Date: 08/28/2023 10:11 Dictated By: Christian Kate M.D. Signed By:08/28/23 1014 DD/ 1011 TD/TT: Database Operator: us Elsi Marrero DO IMG XR PROCEDURES Final Result documented in this encounter Visit Diagnoses Not on filedocumented in this encounter Care Teams Campground Manager Relationship Specialty Start Date End Date Nano Back PA [address] [place] [address] [place] [address] [facility] 01/07/24 documented as of this encounter
--- OUTSIDE RECORDS SUMMARY | 2024-09-07 12:17 | XMS_ITS | Encounter Summary ---
Author Organization [employer] [facility] tem Address [id number] [address] [place] [address] Care Team Providers Care Data Network Architect Name Role Phone Services, [facility] Primary Care Provider Encounter Details Date Type Department Care Team (Late st Contact Info) Description 04/05/2023 Telephone [facility] Certified Nurse Police Guard - [place] [address] [facility] [address] [place] [address] Dorota Dewitt Social History Tobacco Use Types Packs/Day Years [...] got money to buy more. Never True 03/05/2023 Within the past 12 months th e food we bought just didn't last and we didn't have money to get more. Never True 03/05/2023 Purpose - Life Answer Date Recorded Purpose [...] documented as of this encounter Care Teams Data Network Architect Relationship Specialty Start Date End Date Services, [facility] [address] [place] [place], [place] PCP - General Family Medicine 05/01/24 documented as of this encounter
[2024-09-08 05:09] LABS: HCV Ab Non Reactive (Non Reactive); Rubella Antibodies, IgG 1.46 index (Immune >0.99)
== END 2024-09-07 12:14 | disposition home or self-care (01) ==
LOC: LAB 12:13
PROVIDERS: Visit Provider Obstetrics & Gynecology
DX: Z34.01 Encounter for supervision of normal first pregnancy, first trimester (principal); N92.6 Irregular menstruation, unspecified
CPT/HCPCS: 36415; 86762; 86803

== ENCOUNTER 2024-10-05 20:56 | Outpatient (REF) | payer OTHER, SELFPAY ==
--- OUTSIDE RECORDS SUMMARY | 2024-10-05 11:10 | XMS_ITS | Encounter Summary ---
Author Organization [facility] Address [address] [place] [address] Care Team Providers Care Overhead Line Worker Name Role Phone Nano Back Unavailable Reason for Referral * Imaging (Routine) - Pending Review Specialty Diagnoses / Procedures Referred By Fatou mary Referred To Contact Radiology Diagnoses SOB (shortness of breath) Dizziness Procedures Echocardiogram 2D complete Catrina Samuels NP [address] [place] [address] Phone: tel: fax: [facility] [address] [place] [address] Referral ID Status Reason Start Date Expiration Date Visits Requested Visits Authorized [id number] Pending Review Perform Procedure 10/05/2024 04/03/2025 1 1 Reason for Visit * Reason Comments Routine Visit Encounter Details Date Type Department Care Team (Latest Contact Info) Description 10/05/2024 11:10 AM EDT Routine [facility] OB [address] [place] [address] Robert Marrero DO [address] [place] [address] Second trimester ([facility] 17 weeks gestation of ([facility]); Well woman exam with routine gynecological exam; Exposure to STD; Need for maternal serum alpha-protein (MSAFP) screening ([facility]); Screening, , for anatomic survey ([facility]); SOB (shortness of breath); Dizziness Social History Tobacco Use Types Packs/Day Years [...] Sign Reading Time Taken Comments Blood Pressure 124/78 10/05/2024 11:32 AM EDT Pulse - - Temperature - - Respiratory Rate - - Oxygen Saturation - - Inhaled Oxygen Concentration - - Weight 114 kg (251 lb) 10/05/2024 11:32 AM EDT Height - - Body Mass Index 40.51 08/08/2022 12:00 PM EDT documented in this encounter Progress Notes * Catrina Samuels NP - 10/05/2024 11:10 AM EDT Reason for Appointment: Patient ID: Lia Blunt is a 23 y.o. female who presents for Routine Visit Patient presents today for Return OB appointment. MEDICATIONS Current Outpatient Medications Medication Instructions metoclopramide (REGLAN) 10 mg, Oral, 3 times daily before meals, Take 1 tablet by mouth 30 minutes prior to meals 3 times daily as needed for nausea. 27-1 MG tablet 1 tablet, Oral, Daily ALLERGIES Allergies Allergen Reactions Azithromycin Macrolides And Ketolides Unknown Metronidazole GI intolerance Other Reaction(s): Vomiting Wound Dressing Adhesive PROBLEMS Active Ambulatory Problems Diagnosis Date Noted 38 weeks gestation of ([facility]) 11/28/2023 Resolved Ambulatory Problems Diagnosis Date Noted No Resolved Ambulatory Problems Past Medical History: Diagnosis Date Bacterial vaginosis Chlamydia Depression Family history of breast cancer Family history of uterine cancer HISTORY PAST MEDICAL HISTORY SOCIAL HISTORY Past Medical History: Diagnosis Date Bacterial vaginosis Chlamydia Depression Family history of breast cancer Family history of uterine cancer Social History Tobacco Use Smoking status: Never Smokeless tobacco: Never Substance Use Topics Alcohol use: Not Currently Alcohol/week: 3.0 standard drinks of alcohol Types: 3 Standard drinks or equivalent per week Drug use: Not Currently Types: Marijuana FAMILY HISTORY Family History Problem Relation Name Age of Onset No Known Problems Father Cancer Mother's Sister Cancer Mother Rachelle SURGICAL HISTORY Past Surgical History: Procedure Laterality Date DILATION AND CURETTAGE OF UTERUS TONSILLECTOMY 2011 REVIEW OF SYSTEMS Review of Systems: Review of Systems Constitutional: Negative. HENT: Negative. Eyes: Negative. Respiratory: Negative. Cardiovascular: Positive for palpitations. I have been having a fast heart rate and get hot and I feel faint at times. Gastrointestinal: Negative. Genitourinary: Negative. Musculoskeletal: Negative. Skin: Negative. Neurological: Negative. All other systems reviewed and are negative. Hematological: Negative. Endocrine: Negative. Allergic/Immunologic: Negative. OBJECTIVE Objective: Physical Exam Constitutional: Appearance: Normal appearance. She is well-developed. Cardiovascular: Rate and Rhythm: Normal rate and regular rhythm. Pulmonary: Effort: Pulmonary effort is normal. Breath sounds: Normal breath sounds. Abdominal: General: Bowel sounds are normal. There is no distension. Palpations: Abdomen is soft. Tenderness: There is no abdominal tenderness. There is no guarding or rebound. Musculoskeletal: General: No swelling. Normal range of motion. Right lower leg: No edema. Left lower leg: No edema. Neurological: Mental Status: She is alert and oriented to person, place, and time. Skin: General: Skin is warm and dry. Psychiatric: Mood and Affect: Mood normal. Behavior: Behavior normal. Vitals and nursing note reviewed. Exam conducted with a operations administrator present. Vitals: Estimated body mass index is 40.51 kg/m?? as calculated from the following: Height as of 08/08/22: 5' 6 . Weight as of this encounter: 251 lb. BP: 124/78 No LMP recorded (lmp unknown). Patient is . ASSESSMENT & PLAN ICD-10-CM 1. Second trimester ([facility]) Z34.92 POCT urinalysis dipstick manually resulted 2. 17 weeks gestation of ([facility]) Z3A.17 3. Well woman exam with routine gynecological exam Z01.419 Pap Smear 4. Exposure to STD Z20.2 SURESWAB(R) ADVANCED VAGINITIS PLUS, TMA CHLAMYDIA TRACHOMATIS (GENITO/STI) Neisseria gonorrhea DNA probe, direct 5. Need for maternal serum alpha-protein (MSAFP) screening ([facility]) Z36.1 Alpha fetoprotein, maternal Alpha fetoprotein, maternal 6. Screening, , for anatomic survey ([facility]) Z36.89 US OB 14+ weeks anatomy scan 7. SOB (shortness of breath) R06.02 ECG 12 lead unit performed Echocardiogram 2D complete Echocardiogram 2D complete 8. Dizziness R42 ECG 12 lead unit performed Echocardiogram 2D complete Echocardiogram 2D complete Return OB: Patient presents today for a routine obstetrics appointment. Patient is currently 17w1d . Patient states she is doing well but has complaints of being tired due to current . Patient has verbalizes frequent movement. labor precautions was discussed/given and patient was instructed to perform kick counts three times a day. Orders Placed This Encounter Procedures US OB 14+ weeks anatomy scan CHLAMYDIA TRACHOMATIS (GENITO/STI) Neisseria gonorrhea DNA probe, direct Alpha fetoprotein, maternal POCT urinalysis dipstick manually resulted ECG 12 lead unit performed Echocardiogram 2D complete Follow Up: Patient reports feeling like she is going to pass out at times and a fast heart rate. She is going to obtain and ECG and Cardiac Echo and increase her fluids and protein. Should she have any additional symptoms she is to reach out to our office or to the emergency department. She reports no chest pain or shortness of breath at this time and no pleuritic chest pain. Patient is to return to office in 2 week for routine OB appointment and reevaluation of symptoms. Documented by Catrina Samuels NP on behalf of: Robert Marrero DO documented in this encounter Plan of Treatment Upcoming Encounters Date Type Department Care Team (Late st Contact Info) Description 10/19/2024 9:00 AM EDT Routine [facility] OB [address] [place] [id number] Robert Marrero DO [address] [place] [address] 10/26/2024 11:00 AM EDT Ancillary Procedure [facility] OB [address] [facility] [place] [address] Scheduled Orders Name Type Priority Associated Diagnoses Order Schedule SURESWAB(R) ADVANCED VAGINITIS PLUS, TMA Pathology and Cytology Routine Exposure to STD Ordered: 10/05/2024 CHLAMYDIA TRACHOMATIS (GENITO/STI) Lab Routine Exposure to STD Ordered: 10/05/2024 Neisseria gonorrhea DNA probe, direct Lab Routine Exposure to STD Ordered: 10/05/2024 Pap Smear Pathology and Cytology Routine Well woman exam with routine gynecological exam Ordered: 10/05/2024 US OB 14+ weeks anatomy scan Imaging Routine Screening, , for anatomic survey ([facility]) Expected: 10/05/2024, Expires: 01/05/2025 Alpha fetoprotein, maternal Lab Routine Need for maternal serum alpha-protein (MSAFP) screening ([facility]) Expected: 10/05/2024 (Approximate), Expires: 11/04/2024 ECG 12 lead unit performed ECG Routine SOB (shortness of breath) Dizziness Expected: 10/05/2024 (Approximate), Expires: 10/05/2025 Echocardiogram 2D complete Echocardiography Routine SOB (shortness of breath) Dizziness Expected: 10/05/2024 (Approximate), Expires: 10/05/2026 documented as of this encounter Procedures Procedure Name Priority Date/Time Associated Diagnosis Comments POCT URINALYSIS DIPSTICK Routine 10/05/2024 11:44 AM EDT Second trimester ([facility]) PAP SMEAR Routine 07/01/2023 12:00 AM EDT documented in this encounter Results * (ABNORMAL) POCT urinalysis dipstick manually resulted (10/05/2024 11:44 AM EDT) Color, UA Yellow Clarity, UA Clear Glucose, UA Negative Negative - 2000(110) ++++ mg/dL Bilirubin, UA Positive Negative - 4(70) +++ mg/dL Comment:small Ketones, UA Positive Negative - 160(16) ++++ mg/dL Comment:15 Spec Grav, UA 1.025 1 - 1.03 Blood, UA Positive Negative - 50 Villa/mcL Comment:trace pH, UA 6.5 5 - 9 Protein, UA Positive Negative - 1999(20) ++++ mg/dL Comment:100 Urobilinogen, UA 1.0 0.2 - 12 mg/dL Leukocytes, UA Negative Negative - 500+++ Pierre/mcL Nitrite, UA Negative Negative - Positive Urine 10/05/2024 11:4 4 AM EDT Robert Janes DO POINT OF CARE TEST ENTER/EDIT OR DERABLES Final Result * Pap Smear (07/01/2023 12:00 AM EDT) Swab Cervical swab / Unknown [facility] ORDERABLES Final Re sult EXTERNAL LAB documented in this encounter Visit Diagnoses Diagnosis Second trimester ([facility]) state, incidental 17 weeks gestation of ([facility]) Well woman exam with routine gynecological exam Routine gynecological examination Exposure to STD Need for maternal serum alpha-protein (MSAFP) screening ([facility]) Screening, , for anatomic survey ([facility]) Encounter for anatomic survey SOB (shortness of breath) Shortness of breath Dizziness Dizziness and giddiness documented in this encounter Care Teams Overhead Line Worker Relationship Specialty Start Date End Date Nano Back PA [address] [place] [address] [place] [address] PCP - [facility] 01/07/24 documented as of this encounter
--- OUTSIDE RECORDS SUMMARY | 2024-10-05 21:41 | XMS_ITS | Encounter Summary ---
Author Organization [facility] Address [address] [place] [address] Care Team Providers Care Dye Line Operator Name Role Phone Nano Back Unavailable Encounter Details Date Type Department Care Team (Late st Contact Info) Description 09/10/2023 Clinisync Result Encounter [facility] External Department Unsolicited Elsi Marrero, [facility] [place] [id number] Social History Tobacco Use Types Packs/Day Years [...] Routine [facility] BCP OB [address] [place] [address] Elsi Marrero DO [facility] [address] [place], [place] [id number] 10/26/2024 11:00 AM EDT Ancillary Procedure [facility] B[facility] OB [address] [place] [address] documented as of this encounter Procedures Procedure Name Priority Date/Time Associated Diagnosis Comments US OB CERVICAL LENGTH 09/10/2023 3:16 PM EDT documented in this encounter Results * US OB CERVICAL LENGTH (09/10/2023 3:16 PM EDT) Anatomical Region Laterality Modality Other 09/10/2023 3:16 PM EDT Narrative 09/10/2023 3:19 [place] [address] Ultrasound Report Signed Patient: LIA DESAI MR#: [id number] : 2000 Acct:[id number] Age/Sex: 22 / F ADM Date: Loc: [facility] 254-[address]: Elsi Marrero D.O. Ordering Physician: Elsi Marrero D.O. Date of Service: 09/10/23 Procedure(s): US OB cervical length Accession Number(s): [id number] cc: Elsi Marrero D.O.; Physician,Non-Staff M.DMarisabel [place] [address] Patient Name: LIA DESAI MRN: [id number] date: 2000 Sex: F Assigned Patient Location: [facility] Current Patient Location: [facility] Accession/Order Number: [id number] Exam Date: 09/10/2023 13:54 Report Date: 09/10/2023 [...] Signed By: 09/10/23 1519 DD/ 15 TD/TT: Industrial Conveyor Belt Repairer: Procedure Note Radiology, Radiologist, - 09/10/2023 [place] [address] Ultrasound Report Signed Patient: LIA EDSAI LMR#: [id number] : 2000Acct:[id number] Age/Sex: 22 FADM Date: Loc: [facility] 254-[address]: Elsi Marrero D.O. Ordering Physician: Elsi Marrero D.O. Date of Service: 09/10/23 Procedure(s): US OB cervical length Accession Number(s): [id number] cc: Elsi Marrero D.O.; Physician,Non-Staff Nena The [place] [address] Patient Name: LIA DEASI MRN: [id number] date: 2000 Sex: F Assigned Patient Location: [facility] Current Patient Location: [facility] Accession/Order Number: [id number] Exam Date: 09/10/2023 13:54 Report Date: 09/10/2023 [...] Levi Valiente M.D. Signed By:09/10/23 1519 DD/ 1516 TD/TT: Industrial Conveyor Belt Repairer: us Elsi Marrero DO [facility] Final Result documented in this encounter Visit Diagnoses Not on filedocumented in this encounter Care Teams Dye Line Operator Relationship Specialty Start Date End Date Nano Back PA [address] [facility] [place] [address] PCP - [facility] 01/07/24 documented as of this encounter
--- OUTSIDE RECORDS SUMMARY | 2024-10-05 21:41 | XMS_ITS | Encounter Summary ---
Author Organization [facility] Address [address] [place] [address] Care Team Providers Care Residential Property Manager Name Role Phone NianguaNano Unavailable Encounter Details Date Type Department Care Team (Late st Contact Info) Description 05/07/2023 Abstract [facility] BCP OB [address] [place] [address] Robert Marrero DO [facility] [address] [place], [facility]11 Social History Tobacco Use Types Packs/Day [...] Routine [facility] BCP OB [address] [place] [address] Robert Marrero DO [facility] [place], [facility] 10/26/2024 11:00 AM EDT Ancillary Procedure [facility] BCP OB [address] [place] [address] documented as of this encounter Visit Diagnoses Not on filedocumented in this encounter Care Teams Residential Property Manager Relationship Specialty Start Date End Date Nano Back PA [address] [place] [address] [place] [address] PCP - [facility] 01/07/24 documented as of this encounter
--- OUTSIDE RECORDS SUMMARY | 2024-10-05 21:41 | XMS_ITS | Clinical Summary ---
Author Organization [facility] tem Address [id number] [place] [address] Care Team Providers Care Head Baggage Porter Name Role Phone Services, [facility] Primary Care Provider Allergies Active Allergy Reactions [...] EDT - 08/03/2024 2:18 PM EDT Emergency [facility] - Emergency [address] [place] [address] Levi Singh MD Nausea and vomiting during (Primary Dx) Discharge Disposition: Home 08/03/2024 Travel 07/20/2024 1:53 PM EDT - 07/20/2024 4:14 PM EDT Emergency [facility] - Emergency [address] [place] [address] Micah Galeana MD Nausea and vomiting, unspecified [...] Positive(A ) Negative 08/03/2024 12:59 PM EDT [facility] Urine 08/03/2024 1:01 PM EDT 08/03/2024 12:59 PM EDT us Levi Singh MD POINT OF CARE TEST ORDERABLES F inal Result [facility] [address] [place] [address], [place] * (ABNORMAL) POCT Nursing Urine Macroscopic UA (08/03/2024 12:59 PM EDT) Only the most recent of2 resultswithin the time period is included. POC Urine Specific [place] 1.025(A) (none) 08/03/2024 12:56 PM EDT [facility] POC Urine Leukocyte Esterase Negative Negative 08/03/2024 12:56 PM EDT [facility] POC Urine Nitrite Negative Negative 08/03/2024 12:56 PM EDT [facility] POC Urine pH 7.0 5.0, 6.0, 6.5, 7.0, 7.5, 8.0, 8.5, 5.5 08/03/2024 12:56 PM EDT [facility] POC Urine Protein 100 mg/dL(A) Negative 08/03/2024 12:56 PM EDT [facility] POC Urine Glucose Negative Negative 08/03/2024 12:56 PM EDT [facility] POC Urine Ketones 15 mg/dL(A) Negative 08/03/2024 12:56 PM EDT [facility] POC Urine Urobilinogen 1.0 E.U./dL 0.2 E.U./dL, 1.0 E.U./dL 08/03/2024 12:56 PM EDT [facility] POC Urine Bilirubin Small(A) Negative 08/03/2024 12:56 PM EDT [facility] POC Urine Blood/HGB Small(A) Negative 08/03/2024 12:56 PM EDT [facility] Urine 08/03/2024 12:5 9 PM EDT 08/03/2024 12:56 PM EDT us Levi Singh MD POINT OF CARE TEST ORDERABLES F inal Result [facility] [address] [place] [address], [place] * Ultrasound less than 14 weeks single (08/03/2024 12:41 PM EDT) Anatomical Region Laterality Modality OB-CLINICAL GENETICIST Ultrasound 08/03/2024 12:4 9 PM EDT Narrative 08/03/2024 12:52 PM EDT US PREG LESS THAN 14 WKS SINGLE CLINICAL INDICATION: vomiting FINDINGS: limited transabdominal ultrasound of the pelvis. UTERUS AND GESTATIONAL SAC: Intrauterine gestation: Single. Gestational sac: Intrauterine. Yolk sac: 0.3 cm [place]-rump length (CRL): 1.6 cm heart motion: 174 [...] Gestational sac: Intrauterine. Yolk sac: 0.3 cm [place]-rump length (CRL): 1.6 cm heart motion: 174 [...] with estimated gestational age 8 weeks0 days, MONIQUE 03/15/2025. heart rate measures 174bpm. Sonographic appearance of the ovaries grossly within normal limits fortransabdominal technique. Finalized by Brett Gutierrez on 08/03/2024 12:52 PM us Sarai Jose LAUNDRY WASHER-CHICKEN HATCHERY HELPER IMG US ORDERABLES Final Re sult * (ABNORMAL) CBC auto differential (08/03/2024 12:26 PM EDT) WBC 11.8(H) 4 - 11 x10E9/L 08/03/2024 1:12 PM EDT [facility] RBC Count 4.88 3.8 - 5.2 X10E12/L 08/03/2024 1:12 PM EDT [facility] Hemoglobin 13.4 11.7 - 15.5 g/dL 08/03/2024 1:12 PM EDT [facility] Hematocrit 40.0 35 - 47 % 08/03/2024 1:12 PM EDT [facility] MCV 82 80 - 100 fL 08/03/2024 1:12 PM EDT [facility] MCH 27.5 27 - 34 pg 08/03/2024 1:12 PM EDT [facility] MCHC 33.5 32 - 36 g/dL 08/03/2024 1:12 PM EDT [facility] RDW 14.2 11.5 - 15 % 08/03/2024 1:12 PM EDT [facility] Platelet Count 400 150 - 450 X10E9/L 08/03/2024 1:12 PM EDT [facility] MPV 9.1 7 - 12 fL 08/03/2024 1:12 PM EDT [facility] Neutrophils % 67.6 % 08/03/2024 1:12 PM EDT [facility] Lymphocytes % 23.8 % 08/03/2024 1:12 PM EDT [facility] Monocytes % 7.7 % 08/03/2024 1:12 PM EDT [facility] Eosinophils % 0.2 % 08/03/2024 1:12 PM EDT [facility] Basophils % 0.7 % 08/03/2024 1:12 PM EDT [facility] Neutrophils Absolute (A) 8.0 10*3/uL 08/03/2024 1:12 PM EDT [facility] Lymphocytes Absolute 2.8 10*3/uL 08/03/2024 1:12 PM EDT [facility] Monocytes Absolute 0.9 10*3/uL 08/03/2024 1:12 PM EDT [facility] Eosinophils Absolute 0.0 10*3/uL 08/03/2024 1:12 PM EDT [facility] Basophils Absolute 0.1 10*3/uL 08/03/2024 1:12 PM EDT [facility] Differential Type AUTOMATED DIFFERENTIAL 08/03/2024 1:12 PM EDT [facility] Blood Venous blood / Unknown 08/03/2024 12:26 PM EDT 08/03/2024 12:44 PM EDT Sarai Jose LAUNDRY WASHER-CHICKEN HATCHERY HELPER LAB BLOOD ORDERABLES Final Result Performing Organization Address City/[facility]/ZIP Co de Phone Number [address] [place] [address], [place] * Magnesium (08/03/2024 12:26 PM EDT) MAGNESIUM 2.1 1.8 - 2.6 mg/dL 08/03/2024 1:06 PM EDT [facility] Comment:R-Specimen hemolyzed , results increased Blood Venous blood / Unknown 08/03/2024 12:26 PM EDT 08/03/2024 12:44 PM EDT Sarai Jose LAUNDRY WASHER-CHICKEN HATCHERY HELPER LAB BLOOD ORDERABLES Final Result Performing Organization Address City/[facility]/ZIP Co de Phone Number [address] [place] [address], [place] * (ABNORMAL) Comprehensive metabolic panel (08/03/2024 12:26 PM EDT) Only the most recent of2 resultswithin the time period is included. SODIUM 134 134 - 146 mmol/L 08/03/2024 1:06 PM EDT [facility] POTASSIUM 4.2 3.5 - 5.0 mmol/L 08/03/2024 1:06 PM EDT [facility] Comment:R-Specimen hemolyzed , results increased CHLORIDE 103 98 - 109 mmol/L 08/03/2024 1:06 PM EDT [facility] CARBON DIOXIDE 22 22 - 32 mmol/L 08/03/2024 1:06 PM EDT [facility] ANION GAP 9 5 - 15 mmol/L 08/03/2024 1:06 PM EDT [facility] BLOOD UREA NITROGEN 9 5 - 23 mg/dL 08/03/2024 1:06 PM EDT [facility] CREATININE 0.70 0.40 - 1.00 mg/dL 08/03/2024 1:06 PM EDT [facility] Comment:METHOD TRACEABLE TO IDMS STANDARD GLUCOSE 86 65 - 99 mg/dL 08/03/2024 1:06 PM EDT [facility] CALCIUM 9.2 8.5 - 10.5 mg/dL 08/03/2024 1:06 PM EDT [facility] TOTAL PROTEIN 8.1(H) 6.0 - 8.0 g/dL 08/03/2024 1:06 PM EDT [facility] ALBUMIN 4.2 3.2 - 5.3 g/dL 08/03/2024 1:06 PM EDT [facility] ALKALINE PHOSPHATASE 90 39 - 130 U/L 08/03/2024 1:06 PM EDT [facility] AST 27 <=41 U/L 08/03/2024 1:06 PM EDT [facility] Comment:R-Specimen hemolyzed , results increased ALT 16 <=31 U/L 08/03/2024 1:06 PM EDT [facility] Comment:R-Specimen hemolyzed , results increased BILIRUBIN,TOTAL 1.2 0.3 - 1.2 mg/dL 08/03/2024 1:06 PM EDT [facility] Comment:R-Results questionab le due to hemolysis EGFR Non-Race Dependent >90 >=60 ml/min/1.7 3sq.m 08/03/2024 1:06 PM EDT [facility] Comment: Reported eGFR is based on the CKD-EPI 2020 equation that does not use a race coefficient. Blood Venous blood / Unknown 08/03/2024 12:26 PM EDT 08/03/2024 12:44 PM EDT Sarai Jose APRN-CHICKEN HATCHERY HELPER LAB BLOOD ORDERABLES Final Result [facility] [address] [facility] [place] [address], [place] * Urine culture (07/20/2024 3:50 PM EDT) Culture >100,000 ORGANISMS/ML NORMAL UROGENITAL JONNY 07/21/2024 6:47 PM EDT [facility] Urine Urine specimen collection, clean catch / Unknown 07/20/2024 3:50 PM EDT 07/20/2024 4:01 PM EDT Marcia Durbin APRN-CHICKEN HATCHERY HELPER MICROBIOLOGY - GENERA L ORDERABLES Edited Result - Final [facility] [address] [place] [address] * HCG, Quantitative, (07/20/2024 3:00 PM EDT) Hcg-beta, serum 31,689 mIU/mL 4:06 PM EDT [facility] Comment: NEW REFERENCE RANGE WEEKS (SINCE LMP) [...] EDT 07/20/2024 3:16 PM EDT Marcia Durbin LAUNDRY WASHER-CHICKEN HATCHERY HELPER LAB BLOOD ORDERABLES Final Result Performing Organization Address City/[facility]/ZIP Co de Phone Number [address] [address] * Lipase (07/20/2024 3:00 PM EDT) Lipase 31 17 - 40 U/L 07/20/2024 3:35 PM EDT [facility] Blood (PLASMA) 07/20/2024 3: 00 PM EDT 07/20/2024 3:16 PM EDT Marcia Durbin LAUNDRY WASHER-[facility] BLOOD ORDERABLES Final Result Performing Organization Address City/[facility] Co de Phone Number [address] [address] * Chlamydia/GC by PCR Bisi Swab (05/01/2024 11:20 AM EST) Specimen source CERVIX 5:35 PM [facility] Comment:Corrected on 05/01 A T 1735: Previously reported as SWAB Chlamydia DNA PCR Negative Negative^N egative 05/04/2024 11:02 AM [facility] Comment: Chlamydia trachomatis not detected by nucleic acid amplification. This does not exclude the possibility of infection because results are dependent on adequate specimen collection. Gonorrhea DNA PCR Negative Negative^N egative 05/04/2024 11:02 AM [facility] Comment: Neisseria gonorrhoeae not detected by nucleic acid amplification. This does not exclude the possibility of infection because results are dependent on adequate specimen collection. GENS 05/01/2024 11:2 0 AM EST 05/01/2024 5:34 PM EST Tom Coto DO MICROBIOLOGY - GENERAL ORDERABLES Edited Result - Final [facility] [address] [place] [address] from Last 3 Months or Most Recently Relevant to Health Maintenance Insurance [place] [employer] [employer] Advance Directives * Full Code (Latest Code Status on File) Date Activated Date Inactivated Comments 07/30/2023 4:35 PM 07/30/2023 7:06 PM Care Teams Head Baggage Porter Relationship Specialty Start Date End Date Services, [facility] [address] [place], [place] PCP - General Family Medicine 05/01/24
--- OUTSIDE RECORDS SUMMARY | 2024-10-05 21:41 | XMS_ITS | Encounter Summary ---
Author Organization [facility] Address [address] [place] [address] Care Team Providers Care Engineering Psychologist Name Role Phone Nazanin Nano MILLS Unavailable Encounter Details Date Type Department Care Team (Late st Contact Info) Description 08/22/2023 Abstract [facility] OB [address] [place] [address] Margi Marie LPN [address] [facility] [place] [address] Social History Tobacco Use Types Packs/Day Years [...] AM EDT Routine [facility] OB [address] [address] [place] [address] Robert Marrero DO [address] [facility] [address] Jorge [place]ás[place] [id number] 10/26/2024 11:00 AM EDT Ancillary Procedure [facility] OB [address] [place] [address] documented as of this encounter Visit Diagnoses Not on filedocumented in this encounter Care Teams Engineering Psychologist Relationship Specialty Start Date End Date Nano Back PA [address] [place] [address] PCP - [facility] 01/07/24 documented as of this encounter
--- OUTSIDE RECORDS SUMMARY | 2024-10-05 21:41 | XMS_ITS | Encounter Summary ---
Author Organization [facility] Address [address] [place] [address] Care Team Providers Care Practice Business Asst Name Role Phone Nano Back Unavailable Encounter Details Date Type Department Care Team (Late st Contact Info) Description 08/28/2023 Clinisync Result Encounter [facility] External Department Unsolicited Elsi Marrero, [facility] [place] [id number] Social History Tobacco Use Types Packs/Day Years [...] Routine [facility] B[facility] OB [address] [place] [address] Elsi Marrero DO [facility] [address] [place], [place] [id number] 10/26/2024 11:00 AM EDT Ancillary Procedure [facility] B[facility] OB [address] [place] [address] documented as of this encounter Procedures Procedure Name Priority Date/Time Associated Diagnosis Comments US OB FOLLOW UP 08/28/2023 10:11 AM EDT documented in this encounter Results * US OB FOLLOW UP (08/28/2023 10:11 AM EDT) Anatomical Region Laterality Modality Radiographic Nafisa ging 08/28/2023 10:1 1 AM EDT Narrative 08/28/2023 10:14 [place] [address] Ultrasound Report Signed Patient: LIA DESAI MR#: [id number] : 2000 Acct:[id number] Age/Sex: 22 / F ADM Date: 08/28/23 Loc: [facility] Attending Dr: Elsi Marrero D.O. Ordering Physician: Elsi Marrero D.O. Date of Service: 08/28/23 Procedure(s): US OB follow up Accession Number(s): [id number] cc: Elsi Marrero D.O.; Physician,Non-Staff M.Corie [place] [address] Patient Name: LIA DESAI MRN: [id number] date: 2000 Sex: F Assigned Patient Location: [facility] Current Patient Location: [facility] Accession/Order Number: [id number] Exam Date: 08/28/2023 08:34 Report Date: 08/28/2023 [...] IMPRESSION: Normal observed anatomy Electronically authenticated by: MARKIE KATE Date: 08/28/2023 10:11 Dictated By: Markie Kate M.D. Signed By: 08/28/234 DD/ 101 TD/TT: Ironworker Helper Shop: Procedure Note Radiology, Radiologist, - 08/28/2023 [place] [address] Ultrasound Report Signed Patient: LIA DESAI R#: [id number] : 2000Acct:[id number] Age/Sex: 22 / FADM Date: 08/28/23 Loc: [facility] Attending Dr: Elsi Marrero D.O. Ordering Physician: Elsi Marrero D.O. Date of Service: 08/28/23 Procedure(s): US OB follow up Accession Number(s): [id number] cc: Elsi Marrero D.O.; Physician,Non-Staff [place] [address] Patient Name: LIA DESAI MRN: [id number] date: 2000 Sex: F Assigned Patient Location: [facility] Current Patient Location: [facility] Accession/Order Number: [id number] Exam Date: 08/28/2023 08:34 Report Date: 08/28/2023 [...] IMPRESSION: Normal observed anatomy Electronically authenticated by: MARKIE KATE Date: 08/28/2023 10:11 Dictated By: Markie Kate M.D. Signed By:08/28/234 DD/ 101 TD/TT: Ironworker Helper Shop: Elsi Marrero DO IMG XR PROCEDURES Final Result documented in this encounter Visit Diagnoses Not on filedocumented in this encounter Care Teams Practice Business Asst Relationship Specialty Start Date End Date Nano Back PA [address] [place] [address] [place] [address] PCP - [facility] 01/07/24 documented as of this encounter
--- OUTSIDE RECORDS SUMMARY | 2024-10-05 21:41 | XMS_ITS | Encounter Summary ---
Author Organization [facility] Address [address] [facility] [place] [address] Care Team Providers Care Homoeopath Name Role Phone Nazanin Nano MILLS Unavailable Encounter Details Date Type Department Care Team (Late Contact Info) Description 11/22/2023 Abstract [facility] OB [address] [facility] [place] [address] Robert Marrero DO [facility] [place], [facility] Social History Tobacco Use Types Packs/Day [...] Description 10/19/2024 9:00 AM EDT Routine [facility] OB [address] [place] [address] Robert Marrero DO [facility] [place], [facility] 10/26/2024 11:00 AM EDT Ancillary Procedure [facility] OB [address] [place] [address] documented as of this encounter Visit Diagnoses Not on filedocumented in this encounter Care Teams Homoeopath Relationship Specialty Start Date End Date Nano Back PA [address] [facility] [place] [address] PCP - [facility] 01/07/24 documented as of this encounter
--- OUTSIDE RECORDS SUMMARY | 2024-10-05 21:41 | XMS_ITS | Encounter Summary ---
Author Organization [facility] Address [address] [place] [address] Care Team Providers Care Dental Laboratory Technology Teacher Name Role Phone Nazanin Nano MILLS Unavailable Encounter Details Date Type Department Care Team (Late st Contact Info) Description 08/20/2023 Abstract [facility] OB [address] [facility] [place] [address] Margi Marie LPN [address] [facility] [place] [address] Social History Tobacco Use Types Packs/Day Years [...] AM EDT Routine [facility] B[facility] OB [address] [facility] [place] [address] Robert Marrero DO [address] [facility] [address] Jorge Velás[place]MICHELLE [place] [id number] 10/26/2024 11:00 AM EDT Ancillary Procedure [facility] OB [address] [place] [address] documented as of this encounter Visit Diagnoses Not on filedocumented in this encounter Care Teams Dental Laboratory Technology Teacher Relationship Specialty Start Date End Date Nano Back PA [address] [place] [address] PCP - [facility] 01/07/24 documented as of this encounter
--- OUTSIDE RECORDS SUMMARY | 2024-10-05 21:41 | XMS_ITS | Encounter Summary ---
Author Organization [facility] Address [address] [place] [address] Care Team Providers Care Laborer Salvage Name Role Phone Nazanin Nano MILLS Unavailable Encounter Details Date Type Department Care Team (Late Contact Info) Description 12/05/2023 Abstract [facility] OB [address] [place] [address] Robert Marrero DO [facility] [place], [facility]11 Social History Tobacco Use Types [...] Description 10/19/2024 9:00 AM EDT Routine [facility] OB [address] [place] [address] Robert Marrero DO [facility] [place], [facility]11 10/26/2024 11:00 AM EDT Ancillary Procedure [facility] OB [address] [place] [address] documented as of this encounter Visit Diagnoses Not on filedocumented in this encounter Care Teams Laborer Salvage Relationship Specialty Start Date End Date Nano Back PA [address] [facility] [address] PCP - [facility] 01/07/24 documented as of this encounter
--- OUTSIDE RECORDS SUMMARY | 2024-10-05 21:41 | XMS_ITS | Encounter Summary ---
Author Organization [facility] Address [address] [place] [address] Care Team Providers Care Promotional Representative Name Role Phone Nazanin Nano MILLS Unavailable Encounter Details Date Type Department Care Team (Late st Contact Info) Description 05/15/2023 Abstract [facility] OB [address] [place] [address] Robert Marrero DO [facility] [address] [place], [place] [address] Social History Tobacco Use Types Packs/Day Years [...] Routine [facility] BCP OB [address] [place] [address] Robert Marrero DO [facility] [address] [place], [facility]11 10/26/2024 11:00 AM EDT Ancillary Procedure [facility] [address] [place] [address] documented as of this encounter Visit Diagnoses Not on filedocumented in this encounter Care Teams Promotional Representative Relationship Specialty Start Date End Date Nano Back PA [address] [place] [address] PCP - [facility] 01/07/24 documented as of this encounter
--- OUTSIDE RECORDS SUMMARY | 2024-10-05 21:41 | XMS_ITS | Encounter Summary ---
Author Organization [facility] Address [address] [place] [address] Care Team Providers Care Setter Juice Packaging Machines Name Role Phone Nazanin Nano MILLS Unavailable Encounter Details Date Type Department Care Team (Late st Contact Info) Description 06/18/2023 Abstract [facility] OB [address] [facility] [place] [address] Margi Marie LPN [address] [facility] [place] [address] Social History Tobacco Use Types Packs/Day Years [...] AM EDT Routine [facility] BCP OB [address] [facility] [place] [address] Robert Marrero DO [address] [facility] [address] Jorge Velás[place] [id number] 10/26/2024 11:00 AM EDT Ancillary Procedure [facility] OB [address] [place] [address] documented as of this encounter Visit Diagnoses Not on filedocumented in this encounter Care Teams Setter Juice Packaging Machines Relationship Specialty Start Date End Date Nano Back PA [address] [place] [address] PCP - [facility] 01/07/24 documented as of this encounter
--- OUTSIDE RECORDS SUMMARY | 2024-10-05 21:41 | XMS_ITS | Encounter Summary ---
Author Organization [facility] Address [address] [place] [address] Care Team Providers Care Transformer Assembly Supervisor Name Role Phone Nano Back Unavailable Encounter Details Date Type Department Care Team (Late st Contact Info) Description 05/02/2023 Clinisync Result Encounter [facility] External Department Unsolicited Elis Marrero, DO [address] [place], [facility] Social History Tobacco Use Types Packs/Day Years [...] AM EDT Routine [facility] BCP OB [address] [place] [address] Elsi Marrero DO [address] [place], [facility] 10/26/2024 11:00 AM EDT Ancillary Procedure [facility] BCP OB [address] [place] [address] documented as of this encounter Procedures Procedure Name Priority Date/Time Associated Diagnosis Comments US OB TRANSVAGINAL 05/02/2023 1: 36 PM EST documented in this encounter Results * US OB TRANSVAGINAL (05/02/2023 1:36 PM EST) Anatomical Region Laterality Modality Other 05/02/2023 1:36 PM EST Narrative 05/02/2023 1:39 [place] [address] Ultrasound Report Signed Patient: Lia Desai MR#: [id number] : 2000 Acct:[id number] Age/Sex: 22 / F ADM Date: 05/02/23 Loc: [facility] Attending Dr: Elsi Marrero D.O. Ordering Physician: Elsi Marrero D.O. Date of Service: 05/02/23 Procedure(s): US OB transvaginal Accession Number(s): [id number] cc: Elsi Marrero D.O.; Physician,Non-Staff M.D. [place] [address] Patient Name: LIA DESAI MRN: [id number] date: 2000 Sex: F Assigned Patient Location: [facility] Current Patient Location: [facility] Accession/Order Number: [id number] Exam Date: 05/02/2023 12:36 Report Date: 05/02/2023 [...] Signed By: 05/02/23 1339 DD/ 1336 TD/TT: Press Breaker: Procedure Note Radiology, Radiologist, MD - 05/02/2023 [place] [address] Ultrasound Report Signed Patient: Lia Desai LMR#: [id number] : 2000Acct:[id number] Age/Sex: 22 M Date: 05/02/23 Loc: [facility] Attending Dr: Elsi Marrero D.O. Ordering Physician: Elsi Marrero D.O. Date of Service: 05/02/23 Procedure(s): US OB transvaginal Accession Number(s): [id number] cc: Elsi Marrero D.O.; Physician,Non-Staff Nena [place] [id number] Patient Name: LIA DESAI MRN: [id number] date: 2000 Sex: F Assigned Patient Location: [facility] Current Patient Location: [facility] Accession/Order Number: [id number] Exam Date: 05/02/2023 12:36 Report Date: 05/02/2023 [...] Christian Kate M.D. Signed By:05/02/23 1339 DD/ TD/TT: Press Breaker: us Elsi Janes DO [facility] Final Result documented in this encounter Visit Diagnoses Not on filedocumented in this encounter Care Teams Transformer Assembly Supervisor Relationship Specialty Start Date End Date Nano Back PA [address] [place] [address] [place] [address] [facility] 01/07/24 documented as of this encounter
--- OUTSIDE RECORDS SUMMARY | 2024-10-05 21:41 | XMS_ITS | Encounter Summary ---
Author Organization [facility] Address [address] [place] [address] Care Team Providers Care Purchasing Engineer Name Role Phone Nano Back Unavailable Encounter Details Date Type Department Care Team (Late st Contact Info) Description 07/31/2023 Clinisync Result Encounter [facility] External Department Unsolicited Elsi Marrero, [facility] Diamond [place] [id number] Social History Tobacco Use Types Packs/Day Years [...] Routine [facility] [address] [place] [address] Elsi Marrero DO [address] [place], [place] [address] 10/26/2024 11:00 AM EDT Ancillary Procedure [facility] [address] [place] [address] documented as of this encounter Procedures Procedure Name Priority Date/Time Associated Diagnosis Comments US OB ANATOMY 07/31/2023 12:29 PM EDT documented in this encounter Results * US OB ANATOMY (07/31/2023 12:29 PM EDT) Anatomical Region Laterality Modality Other 07/31/2023 12:2 9 PM EDT Narrative 07/31/2023 12:32 [place] [address] Ultrasound Report Signed Patient: LIA DESAI MR#: [id number] : 2000 Acct:[id number] Age/Sex: 22 / F ADM Date: 07/31/23 Loc: [facility] Attending Dr: Elsi Marrero D.O. Ordering Physician: Elsi Marrero D.O. Date of Service: 07/31/23 Procedure(s): US OB anatomy Accession Number(s): [id number] cc: Elsi Marrero D.O.; Physician,Non-Staff M.DMarisabel [place] [address] Patient Name: LIA DESAI MRN: [id number] date: 2000 Sex: F Assigned Patient Location: [facility] Current Patient Location: [facility] Accession/Order Number: [id number] Exam Date: 07/31/2023 10:47 Report Date: 07/31/2023 [...] Signed By: 07/31/23 1232 DD/ 1229 TD/TT: Court Crier: Procedure Note Radiology, Radiologist, MD - 07/31/2023 [place] [address] Ultrasound Report Signed Patient: LIA DESAI LMR#: [id number] : 2000Acct:[id number] Age/Sex: 22 FADM Date: 07/31/23 Loc: [facility] Attending Dr: Elsi Marrero D.O. Ordering Physician: Elsi Marrero D.O. Date of Service: 07/31/23 Procedure(s): US OB anatomy Accession Number(s): [id number] cc: lEsi Marrero D.O.; Physician,Non-Staff Nena The [address] [address] Patient Name: LIA DESAI MRN: [id number] date: 2000 Sex: F Assigned Patient Location: [facility] Current Patient Location: [facility] Accession/Order Number: [id number] Exam Date: 07/31/2023 10:47 Report Date: 07/31/2023 [...] M.D. Signed By:07/31/23 1232 DD/ 1229 TD/TT: Court Crier: us Elsi Janes DO [facility] Final Result documented in this encounter Visit Diagnoses Not on filedocumented in this encounter Care Teams Purchasing Engineer Relationship Specialty Start Date End Date Nano Back PA [address] [facility] [address] [place], [facility] PCP - [facility] 01/07/24 documented as of this encounter
--- OUTSIDE RECORDS SUMMARY | 2024-10-05 21:41 | XMS_ITS | Encounter Summary ---
Author Organization [facility] Address [address] [place] [address] Care Team Providers Care School Bus Mechanic Name Role Phone Nazanin Nano MILLS Unavailable Encounter Details Date Type Department Care Team (Late st Contact Info) Description 05/22/2023 Abstract [facility] OB [address] [facility] [place] [address] Margi Marie LPN [address] [facility] [place] [address] Social History Tobacco Use Types Packs/Day Years [...] AM EDT Routine [facility] BCP OB [address] [facility] [place] [address] Robert Marrero DO [address] [facility] [address] [place] [id number] 10/26/2024 11:00 AM EDT Ancillary Procedure [facility] [address] [place] [address] documented as of this encounter Visit Diagnoses Not on filedocumented in this encounter Care Teams School Bus Mechanic Relationship Specialty Start Date End Date Nano Back PA [address] [place] [address] PCP - [facility] 01/07/24 documented as of this encounter
--- OUTSIDE RECORDS SUMMARY | 2024-10-05 21:41 | XMS_ITS | Encounter Summary ---
Author Organization [facility] tem Address [id number] [place] [address] Care Team Providers Care Photography Teacher Name Role Phone Services, [facility] Primary Care Provider Encounter Details Date Type Department Care Team (Late st Contact Info) Description 08/14/2022 Orders Only [facility] Certified Nurse Pusher Operator - [place] [address] [facility] [facility] [address] [place] [address] External, Scanning Provider Social History [...] BLOOD ORDERABLES Final Result Performing Organization Address [facility] de Phone Number MANUALLY TRANSCRIBED RESULTS * CBC W Auto Diff Bld (08/11/2022) us Scanning Provider External LAB BLOOD ORDERABLES Final Result Performing Organization Address [facility] de Phone Number MANUALLY TRANSCRIBED RESULTS * Ultrasound less than 14 weeks single (08/11/2022) Anatomical Region Laterality Modality OB-CRIME SCENE PHOTOGRAPHER Ultrasound us Scanning Provider External IMG US ORDERABLES Fin al Result documented in this encounter Visit Diagnoses Not on filedocumented in this encounter Additional Health Concerns Infection Onset Date Last Indicated Resolved Time COVID-19 Rule-Out 07/11/2023 07/11/2023 07/11/2023 5:57 PM EDT documented as of this encounter Care Teams Photography Teacher Relationship Specialty Start Date End Date Services, [facility] [address] [place], [place] PCP - General Family Medicine 05/01/24 documented as of this encounter
--- OUTSIDE RECORDS SUMMARY | 2024-10-05 21:41 | XMS_ITS | Encounter Summary ---
Author Organization [facility] Address [address] [facility] [place] [address] Care Team Providers Care Dumpster Driver Name Role Phone Nazanin Nano MILLS Unavailable Encounter Details Date Type Department Care Team (Late Contact Info) Description 11/14/2023 Abstract [facility] OB [address] [facility] [place] [address] Robert Marrero DO [facility] Diamond Lamb, [facility]11 Social History Tobacco Use Types Packs/Day Years [...] Description 10/19/2024 9:00 AM EDT Routine [facility] OB [address] [place] [address] Robert Marrero DO [facility] Diamond Lamb, [facility] 10/26/2024 11:00 AM EDT Ancillary Procedure [facility] OB [address] [place] [address] documented as of this encounter Visit Diagnoses Not on filedocumented in this encounter Care Teams Dumpster Driver Relationship Specialty Start Date End Date Nano Back PA [address] [facility] [place] [address] PCP - [facility] 01/07/24 documented as of this encounter
--- OUTSIDE RECORDS SUMMARY | 2024-10-05 21:41 | XMS_ITS ---
Author Organization [facility] Source Produ ction (ClinicalSummary Clone) Address Unknown Care Team Providers Care Donkey Engine Firer/Fireman Name Role Phone Unavailable Primary Care Physician Unavailab le Results * [UNITY] ANEUPLOIDY NIPT Performed by: [employer] Component Value Range Date Fraction 7.5% 08/25/2024 06 :26 am UT Rh(D) NIPT RhD DETECTED 08/25/2024 06:2 6 am UT Sex Chromosome Aneuploidy NOT DETECTED 06:26 am UTC Monosomy X LOW RISK <1 in 10,000 2024 06:26 am UTC Trisomy 13 LOW RISK <1 in 10,000 2024 06:26 am UTC Trisomy 18 LOW RISK <1 in 10,000 2024 06:26 am UTC Trisomy 21 LOW RISK <1 in 10,000 2024 06:26 am UTC Sex FEMALE 08/25/2024 06:2 6 am UTC Gestation LIVE 08/26/19 06:26 am UT For detailed report, see PDF See PDF 08/25/2024 06:26 am UTC 08/25/2024 06:2 6 am UT Social History Observation Value Start Date End Date
--- OUTSIDE RECORDS SUMMARY | 2024-10-05 21:41 | XMS_ITS | Encounter Summary ---
Author Organization [facility] Address [address] [place] [address] Care Team Providers Care Food Editor Name Role Phone Nano Back GENE Unavailable Encounter Details Date Type Department Care Team (Late st Contact Info) Description 05/25/2023 Abstract [facility] [address] [place] [address] [facility] Diamond Lamb, [place] [address] Social History Tobacco Use Types Packs/Day Years [...] EDT Routine [facility] BCP [address] [place] [address] [facility] Diamond Lamb, [facility] 10/26/2024 11:00 AM EDT Ancillary Procedure [facility] [address] [place] [address] documented as of this encounter Visit Diagnoses Not on filedocumented in this encounter Care Teams Food Editor Relationship Specialty Start Date End Date Nano Back PA [address] [place] [address] PCP - [facility] 01/07/24 documented as of this encounter
--- OUTSIDE RECORDS SUMMARY | 2024-10-05 21:41 | XMS_ITS | Encounter Summary ---
Author Organization [facility] Address [address] [place] [address] Care Team Providers Care Spring Fitter Name Role Phone Nano Back GENE Unavailable Encounter Details Date Type Department Care Team (Late st Contact Info) Description 09/04/2023 Abstract [facility] OB [address] [place] [address] Robert Marrero DO [facility] Diamond Lamb, [place] [address] Social History Tobacco Use Types Packs/Day Years [...] Routine [facility] BCP OB [address] [place] [address] Robert Marrero DO [facility] Diamond Lamb, [facility] 10/26/2024 11:00 AM EDT Ancillary Procedure [facility] [address] [place] [address] documented as of this encounter Visit Diagnoses Not on filedocumented in this encounter Care Teams Spring Fitter Relationship Specialty Start Date End Date Naon Back PA [address] [place] [address] PCP - [facility] 01/07/24 documented as of this encounter
--- OUTSIDE RECORDS SUMMARY | 2024-10-05 21:41 | XMS_ITS ---
Author Organization [facility] Address [address] [place] [address] Care Team Providers Care Fruit Press Operator Name Role Phone Nano Back Unavailable Comprehensive [facility]aternal Care ([facility]) Status:Enrolled (Active) Start date:08/10/2024 Enrollment date:08/11/2024 Enrollment reason:Identified by Health Plan Case Team Name Relationship Phone Nano Melendez LPN(Responsible Staff) Licensed [facility] Nurse [phone] Continued Care and Services Coordination
--- OUTSIDE RECORDS SUMMARY | 2024-10-05 21:41 | XMS_ITS | Encounter Summary ---
Author Organization [facility] Address [address] [place] [address] Care Team Providers Care Senior System Operator Name Role Phone Nazanin Nano MILLS Unavailable Encounter Details Date Type Department Care Team (Late st Contact Info) Description 07/29/2023 Abstract [facility] OB [address] [facility] [place] [address] Margi Marie LPN 102 [facility] [place] [address] Social History Tobacco Use Types Packs/Day Years [...] AM EDT Routine [facility] BCP OB [address] [facility] [place] [address] Robert Marrero DO [address] [facility] [address] Jorge [place] [id number] 10/26/2024 11:00 AM EDT Ancillary Procedure [facility] [address] [place] [address] documented as of this encounter Visit Diagnoses Not on filedocumented in this encounter Care Teams Senior System Operator Relationship Specialty Start Date End Date Nano Back PA [address] [place] [address] PCP - [facility] 01/07/24 documented as of this encounter
--- OUTSIDE RECORDS SUMMARY | 2024-10-05 21:41 | XMS_ITS | Encounter Summary ---
Author Organization [facility] Address [address] [place] [address] Care Team Providers Care Warehouse Guard Name Role Phone Nazanin Nano MILLS Unavailable Encounter Details Date Type Department Care Team (Late st Contact Info) Description 05/15/2023 Abstract [facility] [address] [place] [address] Robert Marrero DO [facility] Diamond Lamb, [place] [address] Social History Tobacco Use Types Packs/Day Years [...] Routine [facility] BCP [address] [place] [address] Robert Marrero DO [facility] Diamond Lamb, [facility] 10/26/2024 11:00 AM EDT Ancillary Procedure [facility] [address] [place] [address] documented as of this encounter Visit Diagnoses Not on filedocumented in this encounter Care Teams Warehouse Guard Relationship Specialty Start Date End Date Nano Back PA [address] [place] [address] PCP - [facility] 01/07/24 documented as of this encounter
--- OUTSIDE RECORDS SUMMARY | 2024-10-05 21:41 | XMS_ITS | Encounter Summary ---
Author Organization [facility] Address [address] [place] [address] Care Team Providers Care Child Neurologist Name Role Phone Nazanin Nano MILLS Unavailable Encounter Details Date Type Department Care Team (Late Contact Info) Description 11/15/2023 Abstract [facility] OB [address] [facility] [place] [address] Robert Marrero DO [facility] Diamond Lamb, [facility]11 Social History Tobacco Use Types Packs/Day Years [...] Description 10/19/2024 9:00 AM EDT Routine [facility] OB [address] [place] [address] Robert Marrero DO [facility] Diamond Lamb, [facility]11 10/26/2024 11:00 AM EDT Ancillary Procedure [facility] OB [address] [place] [address] documented as of this encounter Visit Diagnoses Not on filedocumented in this encounter Care Teams Child Neurologist Relationship Specialty Start Date End Date Nano Back PA [address] [facility] [place] [address] PCP - [facility] 01/07/24 documented as of this encounter
--- OUTSIDE RECORDS SUMMARY | 2024-10-05 21:41 | XMS_ITS | Encounter Summary ---
Author Organization [facility] Address [address] [place] [address] Care Team Providers Care Plate Mill Mill Hand Name Role Phone Nano Back Unavailable Encounter Details Date Type Department Care Team (Late st Contact Info) Description 11/25/2023 Clinisync Result Encounter [facility] External Department Unsolicited Elsi Marrero, [facility] Diamond [place] [id number] Social History Tobacco Use Types Packs/Day Years [...] Routine [facility] BCP OB [address] [place] [address] Elsi Marrero DO [address] [place], [facility] 10/26/2024 11:00 AM EDT Ancillary Procedure [facility] [address] [place] [address] documented as of this encounter Procedures Procedure Name Priority Date/Time Associated Diagnosis Comments US OB GROWTH 11/25/2023 4:36 PM EDT documented in this encounter Results * US OB GROWTH (11/25/2023 4:36 PM EDT) Anatomical Region Laterality Modality Other 11/25/2023 4:36 PM EDT Narrative 11/25/2023 4:38 PM EDT [place] [id number] Ultrasound Report Signed Patient: LIA DESAI MR#: [id number] : 2000 Acct:[id number] Age/Sex: 23 / F ADM Date: 11/25/23 Loc: [facility] Attending Dr: Elsi Marrero D.O. Ordering Physician: Elsi Marrero D.O. Date of Service: 11/25/23 Procedure(s): US OB growth Accession Number(s): [id number] cc: Elsi Marrero D.O.; Physician,Non-Staff M.Corie The [address] [address] Patient Name: LIA DESAI MRN: [id number] date: 2000 Sex: F Assigned Patient Location: [facility] Current Patient Location: [facility] Accession/Order Number: [id number] Exam Date: 11/25/2023 11:30 Report Date: 11/25/2023 [...] M.D. Signed By: 11/25/231637 DD/ 35 TD/TT: Whiteprinting Machine Operator: Procedure Note Radiology, Radiologist, MD - 11/25/2023 [place] [address] Ultrasound Report Signed Patient: LIA DESAI R#: [id number] : 2000Acct:[id number] Age/Sex: 23 / FADM Date: 11/25/23 Loc: [facility] Attending Dr: Elsi Marrero D.O. Ordering Physician: Elsi Marrero D.O. Date of Service: 11/25/23 Procedure(s): US OB growth Accession Number(s): [id number] cc: Elsi Marrero D.O.; Physician,Non-Staff Nena The [place] [address] Patient Name: LIA DESAI MRN: [facility]:[id number] date: 2000 Sex: F Assigned Patient [facility] Current Patient Location: [facility] Accession/Order Number: [id number] Exam Date: 11/25/2023 11:30 Report Date: 11/25/2023 [...] 16:36 Dictated By: Christian Kate M.D. Signed By:11/25/231637 DD/ 35 TD/TT: Whiteprinting Machine Operator: us Elsi Janes DO [facility] Final Result documented in this encounter Visit Diagnoses Not on filedocumented in this encounter Care Teams Plate Mill Mill Hand Relationship Specialty Start Date End Date Nano Back PA [address] [place] [address] [place] [address] [facility] - [facility] 01/07/24 documented as of this encounter
--- OUTSIDE RECORDS SUMMARY | 2024-10-05 21:41 | XMS_ITS | Encounter Summary ---
Author Organization [facility] Address [address] [place] [address] Care Team Providers Care Air Conditioner Installer Helper Name Role Phone Nano Back Unavailable Encounter Details Date Type Department Care Team (Late st Contact Info) Description 10/01/2023 Clinisync Result Encounter [facility] External Department Unsolicited Elsi Marrero, [facility] Diamond [place] [id number] Social History Tobacco Use Types Packs/Day Years [...] Routine [facility] BCP OB [address] [place] [address] Elsi Marrero DO [address] [place], [facility] 10/26/2024 11:00 AM EDT Ancillary Procedure [facility] OB [address] [place] [address] documented as of this encounter Procedures Procedure Name Priority Date/Time Associated Diagnosis Comments US OB GROWTH 10/01/2023 11:17 AM EDT documented in this encounter Results * US OB GROWTH (10/01/2023 11:17 AM EDT) Anatomical Region Laterality Modality Other 10/01/2023 11:1 7 AM EDT Narrative 10/01/2023 11:20 [place] [address] Ultrasound Report Signed Patient: LIA DESAI MR#: [id number] : 2000 Acct:[id number] Age/Sex: 22 / F ADM Date: 10/01/23 Loc: [facility] Attending Dr: Elsi Marrero D.O. Ordering Physician: Elsi Marrero D.O. Date of Service: 10/01/23 Procedure(s): US OB growth Accession Number(s): [id number] cc: Elsi Marrero D.O.; Physician,Non-Staff M.DMarisabel The [address] [address] Patient Name: LIA DESAI MRN: [id number] date: 2000 Sex: F Assigned Patient Location: [facility] Current Patient Location: [facility] Accession/Order Number: [id number] Exam Date: 10/01/2023 10:42 Report Date: 10/01/2023 [...] Signed By: 10/01/23 1120 DD/ 1117 TD/TT: Cook Candy: Procedure Note Radiology, Radiologist, MD - 10/01/2023 [place] [address] Ultrasound Report Signed Patient: LIA DESAI R#: [id number] : 2000Acct:[id number] Age/Sex: 22 / FADM Date: 10/01/23 Loc: [facility] Attending Dr: Elsi Marrero D.O. Ordering Physician: Elis Marrero D.O. Date of Service: 10/01/23 Procedure(s): US OB growth Accession Number(s): [id number] cc: Elsi Marrero D.O.; Physician,Non-Staff Nena The [place] [address] Patient Name: LIA DESAI MRN: [id number] date: 2000 Sex: F Assigned [facility] Current Patient Location: [facility] Accession/Order Number: [id number] Exam Date: 10/01/2023 10:42 Report Date: 10/01/2023 [...] M.D. Signed By:10/01/23 1120 DD/ 1117 TD/TT: Cook Candy: us Elsi Janes DO [facility] Final Result documented in this encounter Visit Diagnoses Not on filedocumented in this encounter Care Teams Air Conditioner Installer Helper Relationship Specialty Start Date End Date Nano Back PA [address] [place] [address] [place] [address] [facility] 01/07/24 documented as of this encounter
--- OUTSIDE RECORDS SUMMARY | 2024-10-05 21:41 | XMS_ITS | Encounter Summary ---
Author Organization [facility] Address [address] [place] [address] Care Team Providers Care Pattern Perforating Machine Operator Name Role Phone Nano Back Unavailable Encounter Details Date Type Department Care Team (Late st Contact Info) Description 07/31/2023 Clinisync Result Encounter [facility] External Department Unsolicited Elsi Marrero, [facility] [place] [id number] Social History Tobacco Use Types Packs/Day Years [...] [place] [address] Elsi Marrero DO [address] [place], [place] [address] 10/26/2024 11:00 AM EDT Ancillary Procedure [facility] BCP OB [address] [place] [address] documented as of this encounter Procedures Procedure Name Priority Date/Time Associated Diagnosis Comments US OB CERVICAL LENGTH 07/31/2023 12:29 PM EDT documented in this encounter Results * US OB CERVICAL LENGTH (07/31/2023 12:29 PM EDT) Anatomical Region Laterality Modality Other 07/31/2023 12:2 9 PM EDT Narrative 07/31/2023 12:32 [place] [address] Ultrasound Report Signed Patient: LIA DESAI MR#: [id number] : 2000 Acct:[id number] Age/Sex: 22 / F ADM Date: 07/31/23 Loc: [facility] Attending Dr: Elsi Marrero D.O. Ordering Physician: Elsi Marrero D.O. Date of Service: 07/31/23 Procedure(s): US OB cervical length Accession Number(s): [id number] cc: Elsi Marrero D.O.; Physician,Non-Staff M.Corie [place] [address] Patient Name: LIA DESAI MRN: [id number] date: 2000 Sex: F Assigned Patient Location: [facility] Current Patient Location: [facility] Accession/Order Number: [id number] Exam Date: 07/31/2023 10:47 Report Date: 07/31/2023 [...] Signed By: 07/31/23 1232 DD/ 1229 TD/TT: Membership Administrator: Procedure Note Radiology, Radiologist, MD - 07/31/2023 [place] [address] Ultrasound Report Signed Patient: LIA DESAI LMR#: [id number] : 2000Acct:[id number] Age/Sex: 22 FADM Date: 07/31/23 Loc: [facility] Attending Dr: Elsi Marrero D.O. Ordering Physician: Elsi Marrero D.O. Date of Service: 07/31/23 Procedure(s): US OB cervical length Accession Number(s): [id number] cc: Elsi Marrero D.O.; Physician,Non-Staff M.Corie The [address] [address] Patient Name: LIA DESAI MRN: [id number] date: 2000 Sex: F Assigned Patient Location: [facility] Current Patient Location: [facility] Accession/Order Number: [id number] Exam Date: 07/31/2023 10:47 Report Date: 07/31/2023 [...] M.D. Signed By:07/31/23 1232 DD/ 1229 TD/TT: Membership Administrator: us Elsi Marrero DO [facility] Final Result documented in this encounter Visit Diagnoses Not on filedocumented in this encounter Care Teams Pattern Perforating Machine Operator Relationship Specialty Start Date End Date Nano Back PA [address] [place] [address] Dr [place], [facility] PCP - [facility] 01/07/24 documented as of this encounter
--- OUTSIDE RECORDS SUMMARY | 2024-10-05 21:42 | XMS_ITS | Encounter Summary ---
Author Organization [facility] Address [address] [place] [address] Care Team Providers Care Panel Raiser Operator Name Role Phone Nazanin Nano MILLS Unavailable Encounter Details Date Type Department Care Team (Late st Contact Info) Description 08/21/2024 Abstract [facility] [address] [facility] [place] [address] Zaida Tavares MA Social History Tobacco [...] Description 10/19/2024 9:00 AM EDT Routine [facility] [address] [facility] [place] [address] Robert Marrero DO [facility] [address] [place] [address] 10/26/2024 11:00 AM EDT Ancillary Procedure [facility] [address] [facility] [place] [id number] documented as of this encounter Visit Diagnoses Not on filedocumented in this encounter Care Teams Panel Raiser Operator Relationship Specialty Start Date End Date Nano Back PA [address] [facility] [place] [address] PCP - [facility] 01/07/24 documented as of this encounter
--- OUTSIDE RECORDS SUMMARY | 2024-10-05 21:42 | XMS_ITS | Encounter Summary ---
Author Organization [facility] Address [address] [place] [address] Care Team Providers Care Chemical Processing Laborer Name Role Phone Nazanin Nano MILLS Unavailable Encounter Details Date Type Department Care Team (Late st Contact Info) Description 08/21/2024 Abstract [facility] [address] [facility] [place] [address] Zaida Tavares MA Social History Tobacco [...] Description 10/19/2024 9:00 AM EDT Routine [facility] [address] [facility] [place] [address] Robert Marrero DO [facility] [address] [place] [address] 10/26/2024 11:00 AM EDT Ancillary Procedure [facility] [address] [facility] [place] [address] documented as of this encounter Visit Diagnoses Not on filedocumented in this encounter Care Teams Chemical Processing Laborer Relationship Specialty Start Date End Date Nano Back PA [address] [place] [address] PCP - [facility] 01/07/24 documented as of this encounter
--- OUTSIDE RECORDS SUMMARY | 2024-10-05 21:42 | XMS_ITS | Encounter Summary ---
Author Organization [facility] Address [address] [place] [address] Care Team Providers Care Dividend Clerk Name Role Phone Nano Back Unavailable Encounter Details Date Type Department Care Team (Late st Contact Info) Description 09/18/2024 Telephone [facility] [address] [facility] [place] [address] Shantell Ambrose LPN Social History Tobacco Use Types Packs/Day Years [...] PM EST documented as of this encounter Miscellaneous Notes * Telephone Encounter - Shantell Ambrose LPN - 09/18/2024 11:03 AM EDT 10:44am Patient called and LMOM that she would like a call back to discuss some spells she has had this week of almost passing out. 11:03am Called patient. Patient voiced 1-1.5 weeks she could be doing something and almost pass out. Patient voiced she also voiced that she felt the color draw from her body, tunnel vision, super shaky and hot. Patient states this mainly happens when she is standing for periods of time. Patient states she does not make quick movements and spells normally disappear after she takes a few deep breaths and cools down. Advised patient to monitor symptoms, increase fluid intake and if this persist to be evaluated. PVU--Shantell Dominguez LPN documented in this encounter Plan of Treatment Upcoming Encounters Date Type Department Care Team (Late st Contact Info) Description 10/19/2024 9:00 AM EDT Routine [facility] [address] [facility] [place] [id number] Robert Marrero DO [address] [facility] [place] [address] 10/26/2024 11:00 AM EDT Ancillary Procedure [facility] [address] [facility] [place] [address] documented as of this encounter Visit Diagnoses Not on filedocumented in this encounter Care Teams Dividend Clerk Relationship Specialty Start Date End Date Nano Back PA [address] [place] [address] [place] [address] PCP - Rosaline Harry [facility] 01/07/24 documented as of this encounter
--- OUTSIDE RECORDS SUMMARY | 2024-10-05 21:42 | XMS_ITS | Encounter Summary ---
Author Organization [facility] Address [address] [place] [address] Care Team Providers Care Data Developer Name Role Phone Sharon, Nano MILLS Unavailable Encounter Details Date Type Department Care Team (Late st Contact Info) Description 09/21/2024 Abstract [facility] [address] [place] [address] Robert Marrero DO [facility] [address] [place], [facility] Social History Tobacco Use Types Packs/Day [...] Routine [facility] [address] [place] [address] Robert Marrero DO [facility] [address] [place], [facility] 10/26/2024 11:00 AM EDT Ancillary Procedure [facility] [address] [place] [address] documented as of this encounter Visit Diagnoses Not on filedocumented in this encounter Care Teams Data Developer Relationship Specialty Start Date End Date Nano Back PA [address] [place] [address] PCP - [facility] 01/07/24 documented as of this encounter
--- OUTSIDE RECORDS SUMMARY | 2024-10-05 21:42 | XMS_ITS | Encounter Summary ---
Author Organization [facility] Address [address] [place] [address] Care Team Providers Care Rockboard Lather Name Role Phone Nazanin Nano MILLS Unavailable Encounter Details Date Type Department Care Team (Late st Contact Info) Description 08/21/2024 Abstract [facility] [address] [place] [address] Zaida Tvaares MA Social History Tobacco Use Types Packs/Day [...] Description 10/19/2024 9:00 AM EDT Routine [facility] [address] [place] [address] Robert Marrero DO [facility] [place] [address] 10/26/2024 11:00 AM EDT Ancillary Procedure [facility] [address] [place] [address] documented as of this encounter Visit Diagnoses Not on filedocumented in this encounter Care Teams Rockboard Lather Relationship Specialty Start Date End Date Nano Back PA [address] [facility] [place] [address] PCP - [facility] 01/07/24 documented as of this encounter
--- OUTSIDE RECORDS SUMMARY | 2024-10-05 21:42 | XMS_ITS | Encounter Summary ---
Author Organization [facility] tem Address [id number] [address] [place] [address] Care Team Providers Care Podiatric Foot And Ankle Specialist Name Role Phone [facility] Primary Care Provider Encounter Details Date Type Department Care Team (Late st Contact Info) Description 09/27/2022 Orders Only [facility] [address] [place] [address] Charu Forbes, MANAGER CREATIVE-COMPA [address] [place], [place] [id number] Chlamydia (Primary Dx) Social History Tobacco Use [...] documented as of this encounter Care Teams Podiatric Foot And Ankle Specialist Relationship Specialty Start Date End Date Services, [facility] [address] [place], [place] PCP - General Family Medicine 05/01/24 documented as of this encounter
--- OUTSIDE RECORDS SUMMARY | 2024-10-05 21:42 | XMS_ITS | Encounter Summary ---
Author Organization [facility] Address [address] [place] [address] Care Team Providers Care Wildlife Science Professor Name Role Phone Nazanin Nano MILLS Unavailable Encounter Details Date Type Department Care Team (Late st Contact Info) Description 10/05/2024 Bamboo flowsheet [facility] [address] [place] [address] Robert Marrero DO [facility] [address] [place], [place] [address] Social History Tobacco Use Types Packs/Day Years [...] Routine [facility] [address] [place] [address] Robert Marrero DO [facility] [address] [place], [facility] 10/26/2024 11:00 AM EDT Ancillary Procedure [facility] [address] [place] [address] documented as of this encounter Visit Diagnoses Not on filedocumented in this encounter Care Teams Wildlife Science Professor Relationship Specialty Start Date End Date Nano Back PA [address] [facility] [place] [address] PCP - [facility] 01/07/24 documented as of this encounter
--- OUTSIDE RECORDS SUMMARY | 2024-10-05 21:42 | XMS_ITS | Encounter Summary ---
Author Organization [employer] [facility] tem Address [id number] [address] [place] [address] Care Team Providers Care Jukebox Route Driver Name Role Phone [facility] Primary Care Provider Encounter Details Date Type Department Care Team (Late st Contact Info) Description 08/30/2022 Orders Only [facility] Certified Nurse Doorperson Or Luggage Porter - [place] [address] [facility] [address] [place] [address] Leah Hernandez RN Miscarriage Social [...] documented as of this encounter Care Teams Jukebox Route Driver Relationship Specialty Start Date End Date Services, [facility] [address] [place], [place] PCP - General Family Medicine 05/01/24 documented as of this encounter
--- OUTSIDE RECORDS SUMMARY | 2024-10-05 21:42 | XMS_ITS | Clinical Summary ---
Author Organization [facility] Address [address] [place] [address] Care Team Providers Care Agronomy Internship Name Role Phone Nano Back Unavailable Allergies Active Allergy Reactions Criticality Noted Date Comments Azithromycin 04/23/2023 Macrolides And Ketolides Unknown 04/30/2023 Metronidazole GI intolerance 07/09/2023 Other Reaction(s): Vomiting Wound Dressing Adhesive Low 05/02/2023 Medications 27-1 MG tablet Take 1 tablet by mouth Daily 2 Active metoclopramide (Reglan) 10 MG tabletIndication s:Nausea and vomiting in ([facility]) Take 1 tablet (10 mg) by mouth in the morning and 1 tablet (10 mg) at noon and 1 tablet (10 mg) in the evening. Take before meals. Take 1 tablet by mouth 30 minutes prior to meals 3 times daily as needed for nausea. 90 tablet 5 10/09/19 25 Active metoclopramide (Reglan) 10 MG tabletIndication s:Nausea and vomiting in ([facility]) Take 1 tablet (10 mg) by mouth in the morning and 1 tablet (10 mg) at noon and 1 tablet (10 mg) in the evening. Take before meals. Take 1 tablet by mouth 30 minutes prior to meals 3 times daily as needed for nausea. 90 tablet 5 09/08/19 25 Discontinue d(Reorder) docusate sodium (Colace) 100 MG capsuleIndicatio ns:Constipation, unspecified constipation type Take 1 capsule (100 mg) by mouth in the morning and 1 capsule (100 mg) before bedtime. Do all this for 10 days. 20 capsule 5 09/09/19 25 Discontinue d(Reorder) metoclopramide (Reglan) 10 MG tabletIndication s:Nausea and vomiting in ([facility]) Take 1 tablet (10 mg) by mouth in the morning and 1 tablet (10 mg) at noon and 1 tablet (10 mg) in the evening. Take before meals. Take 1 tablet by mouth 30 minutes prior to meals 3 times daily as needed for nausea. 90 tablet 5 09/09/19 25 Discontinue d(Reorder) docusate sodium (Colace) 100 MG capsuleIndicatio ns:Constipation, unspecified constipation type Take 1 capsule (100 mg) by mouth in the morning and 1 capsule (100 mg) before bedtime. Do all this for 10 days. 20 capsule 5 09/19/19 25 Active Problems Problem Noted Date Diagnosed Date 38 weeks gestation of ([facility]) 2023 Estimated Date of Delivery Comme nts Yes 03/14/2025 Based on Ultraso und Encounters Date Type Department Care Team Description 10/05/2024 11:10 AM EDT Routine [facility] [address] [place] [address] Robert Marrero, Second trimester ([facility]); 17 weeks gestation of ([facility]); Well woman exam with routine gynecological exam; Exposure to STD; Need for maternal serum alpha-protein (MSAFP) screening ([facility]); Screening, , for anatomic survey ([facility]); SOB (shortness of breath); Dizziness 10/05/2024 Bamboo flowsheet [facility] [address] [place] [address] Robert Marrero, 09/23/2024 Abstract [facility] [place] [address] [place] [address] Robert Marrero, DO 09/21/2024 Abstract [facility] [address] [place] [address] Robert Marrero, DO 09/18/2024 Telephone [facility] OB [address] [place] [address] [place] [address] Shantell Ambrose LPN 09/10/2024 Patient Outreach [facility] [address] [place] [address] Nano Melendez, IMPORT CUSTOMER SERVICE MANAGER 09/08/2024 Refill [facility] OB [address] [place] [address] [place] [address] Margi Marie, FEDE Constipation, unspecified constipation type; Nausea and vomiting in ([facility]) 09/07/2024 10:50 AM EDT Routine [facility] [address] [place] [address] Robert Marrero, DO Constipation, unspecified constipation type (Primary Dx); First trimester ([facility]); 13 weeks gestation of ([facility]); Nausea and vomiting in ([facility]) 09/07/2024 Clinisync Result Encounter [facility] External Department Unsolicited Robert Marrero, DO 09/07/2024 Bamboo flowsheet [facility] OB [address] [place] [address] [place] [address] Robert Marrero, DO 08/25/2024 Abstract [facility] OB [address] [place] [address] [place] [address] Robert Marrero, DO 08/25/2024 Abstract [facility] OB [address] [place] [address] [place] [address] Robert Marrero, DO 08/21/2024 Abstract [facility] OB [address] [place] [address] [place] [address] Zaida Tavares MA 08/21/2024 Abstract [facility] OB [address] [place] [address] [place] [address] Zaida Tavares MA 08/21/2024 Abstract [facility] [address] [place] [address] Zaida Tavares MA 08/18/2024 Clinisync Result Encounter [facility] External Department Unsolicited Robert Marrero, 08/11/2024 Patient Outreach [facility] [address] [place] [address] Nano Melendez LPN 08/10/2024 Telephone [facility] [address] [place] [address] Robert Marrero, 08/06/2024 1:30 PM EDT Initial [facility] OB [facility] [place] [address] GA: [id number] 08/06/2024 1:00 PM EDT Ancillary Procedure [facility] [address] [place] [address] Missed menses 07/27/2024 Telephone [facility] OB [address] [place] [address] Janna Jansen LPN from Last 3 Months Family History Medical [...] (251 lb) 10/05/2024 11:32 AM EDT Height 167.6 cm (5' 6 ) 08/08/2022 12:00 PM EDT Body Mass Index 40.51 08/08/2022 12:00 PM EDT Plan of Treatment Upcoming Encounters Date Type Department Care Team (Late st Contact Info) Description 10/19/2024 9:00 AM EDT Routine [facility] [address] [facility] [place] [address] Robert Marrero, DO [address] [facility] [place] [address] 10/26/2024 11:00 AM EDT Ancillary Procedure [facility] [address] [facility] [address] Health Maintenance Due Date Last Done Comments Influenza Vaccine (Season Ended) 2024 Procedures Procedure Name Priority Date/Time Associated Diagnosis Comments POCT URINALYSIS DIPSTICK Routine 10/05/2024 11:44 AM EDT Second trimester ([facility]) CULTURE, URINE, ROUTINE Routine 09/07/2024 2:34 PM EDT Missed menses HCV ANTIBODY RFX TO QUANT PCR Routine 09/07/2024 12:25 PM EDT ALL RUBELLA IGG AB Routine 09/07/2024 12 :25 PM EDT POCT URINALYSIS DIPSTICK Routine 09/07/2024 11:19 AM EDT First trimester ([facility]) HBSAG SCREEN Routine 08/18/2024 4:40 PM EDT [...] 08/06/2024 1: 33 PM EDT Missed menses from Last 3 Months Results * (ABNORMAL) POCT urinalysis dipstick manually resulted (10/05/2024 11:44 AM EDT) Only the most recent of3 resultswithin the time period is included. Color, [...] UA Positive Negative - 2000(20) ++++ mg/dL Comment:100 Urobilinogen, UA 1.0 0.2 - 12 mg/dL Leukocytes, UA Negative Negative - 500+++ Pierre/mcL Nitrite, UA Negative Negative - Positive Urine 10/05/2024 11:4 4 AM EDT us Robert Janes DO POINT OF CARE TEST ENTER/EDIT OR DERABLES Final Result * Urine culture (09/07/2024 2:34 PM EDT) Urine Urine specimen obtained by clean catch procedure / Unknown [facility] LAB MICROBIOLOGY - GENERAL ORDER BRAD Final Result Performing Organization Address City/[facility] Co de Phone Number EXTERNAL LAB * HCV ANTIBODY RFX TO QUANT PCR (09/07/2024 12:25 PM EDT) HCV AB Non Reactive Non Reactive [facility] INTERPRETATION: Comment . [facility] Comment: Not infected with HCV unless early or acute infection is suspected (which may be delayed in an immunocompromised individual), or other evidence exists to indicate HCV infection. 09/07/2024 12:2 5 PM EDT 09/07/2024 12:31 PM EDT Narrative CLINISYIL - 09/08/2024 5:09 AM EDT [facility] LAB BLOOD ORDERABLES Final Resul t Performing Organization Address [facility] Phone Number [facility] * ALL RUBELLA IGG AB (09/07/2024 12:25 PM EDT) RUBELLA ANTIBODIES, IGG 1.46 Immune >0.99 [facility] Comment: Non-immune <0.90 Equivocal 0.90 - 0.99 Immune >0.99 Performed at: [address] [id number] Release Specialist: Yvan Bolton PhD, Phone: [phone] 09/07/2024 12:2 5 PM EDT 09/07/2024 12:31 PM EDT Narrative CLINISYNC - 09/08/2024 5:09 AM EDT [facility] Janes DO CLINISYNC Final Result Performing Organization Address [facility] Co de Phone Number [facility] * BOX TEST (08/18/2024 4:40 PM EDT) Pathologist [facility] BOX TEST SENT OUT UNITY BOX [facility] BOX1 UNITY [facility] BOX2 08/18/24 [facility] 08/18/2024 4:40 PM EDT 08/18/2024 5:01 PM EDT Narrative CLINISYNC - 08/18/2024 6:09 PM EDT UNITY BOX Robert Janes DO LAB BLOOD ORDERABLES Final Resul t Performing Organization Address [facility] Co de Phone Number [facility] * HBSAG SCREEN (08/18/2024 4:40 PM EDT) [facility] [address] HBSAG SCREEN Negative Negative [facility] Comment: Performed at: [address] [id number] Release Specialist: Yvan Bolton PhD, Phone: [phone] 08/18/2024 4:40 PM EDT 08/18/2024 5:10 PM EDT Narrative CLINISYNC - 08/20/2024 12:12 PM EDT Robert Janes DO LAB BLOOD ORDERABLES Final Resul t Performing Organization Address [facility] de Phone Number [facility] * RAPID PLASMA REAGIN, QUANT (08/18/2024 4:40 PM EDT) [facility] [address] RAPID PLASMA REAGIN, QUANT Non Reactive NonRea<1: 1 titer [facility] Comment: Please Note: This test does not meet current guidelines for screening and diagnosis of syphilis. This test is intended for following treatment response in patients being treated for syphilis infection. To screen for syphilis infection, a reflex cascade that includes both RPR and a treponema-specific assay should be utilized, such as Treponema pallidum (Syphilis) Screening [facility] [place] (379408) or Rapid Plasma Reagin (RPR) Test With Reflex to Quantitative RPR and Confirmatory Treponema pallidum Antibodies ([id number]). Performed at: [address] [id number] Release Specialist: Yvan Bolton PhD, Phone: [phone] 08/18/2024 4:40 PM EDT 08/18/2024 5:10 PM EDT Narrative CLINISYNC - 08/20/2024 12:12 PM EDT Robert Janes DO LAB BLOOD ORDERABLES Final Resul t Performing Organization Address City/[facility]/ZIP Co de Phone Number [facility] * HIV AB/P24 AG WITH REFLEX (08/18/2024 4:40 PM EDT) Pathologist [facility] HIV AB/P24 AG SCREEN Non Reactive Non Reactive [facility] Comment: HIV-1/HIV-2 antibodies and HIV-1 p24 antigen were NOT detected. There is no laboratory evidence of HIV infection. HIV Negative Performed at: [address] [id number] Release Specialist: Yvan Bolton PhD, Phone: [phone] 08/18/2024 4:40 PM EDT 08/18/2024 5:10 PM EDT Narrative CLINISYNC - 08/20/2024 6:07 AM EDT [employer] DO LAB BLOOD ORDERABLES Final Resul t Performing Organization Address [facility] Co de Phone Number [facility] * MLR HEMOGLOBIN A1C (08/18/2024 4:40 PM EDT) Pathologist [facility] GLYCOHEMOGLOBIN A1C 5.5 4.5 - 6.2 % [facility] Comment: ADA RECOMMENDED LIMIT 4.0 - 6.0 ADA THERAPEUTIC TARGET < 7.0 ACTION SUGGESTED > 7.0 ESTIMATED AVERAGE GLUCOSE 111 mg/dL [facility] 08/18/2024 4:40 PM EDT 08/18/2024 5:01 PM EDT Narrative CLINISYNC - 08/18/2024 6:52 PM EDT us Robert Janes DO CLINISYNC Final Result Performing Organization Address [facility]/ZIP Co de Phone Number [facility] * ALL TYPE AND SCREEN (08/18/2024 4:40 PM EDT) Pathologist [facility] BLOOD TYPE A Positive [facility] ANTIBODY SCREEN NEGATIVE [facility] 08/18/2024 4:40 PM EDT 08/18/2024 5:01 PM EDT Narrative CLINISYNC - 08/18/2024 6:18 PM EDT [facility] , Robert Janes DO CLINISYNC Final Result [facility] * (ABNORMAL) ALL CBC WITH AUTO DIFF (08/18/2024 4:40 PM EDT) [facility] [address] [facility] TB WBC 11.4(H) 4.0 - 11.0 10 3/uL [facility] TBH RBC 4.58 4.20 - 5.40 10 6/uL [facility] TBH HGB 12.6 12.0 - 16.0 g/dL TB TB HCT 38.6 36.0 - 48.0 % [facility] TBH MCV 84.3 81.0 - 99.0 fL TBH TBH MCH 27.5 26.7 - 34.0 pg TBH TBH MCHC 32.6 29.9 - 35.2 g/dL TB TB RDW 13.2 11.0 - 15.0 % TB[facility] [...] Narrative CLINISYNC - 08/18/2024 7:14 PM EDT us Robert Janes DO CLINIS[facility]NC Final Result [facility] * TB DRUG SCREEN RAPID (URINE) (08/18/2024 3:30 PM [...] Narrative CLINISYNC - 08/18/2024 9:33 PM EDT us Robert Janes DO CLINISYNC Final Result [facility] * (ABNORMAL) POCT , urine manually resulted (08/06/2024 3:59 PM EDT) Preg Test, Ur Positive Negative Urine 08/06/2024 3:59 PM EDT us Robert Janes DO POINT OF [...] report is generated using voice recognition reporting ([employer]). On occasion PowerScribe erroneously drops words from the report or replaces the spoken word with similar sounding words. Please call with any questions/concerns regarding this report.* Dictated and transcribed 08/06/24dpd This report has been electronically signed and [...] report is generated using voice recognition reporting ([employer]).On occasion [employer]ribe erroneously drops words from the report orreplaces the spoken word with similar sounding words. Please call with anyquestions/concerns regarding this report.* Dictated and transcribed 08/06/24dpd This report has been electronically signed and approved by theinterpreting radiologist. us Robert Marrero DO IMG OB US PROCEDURES Final Resul t from Last 3 Months Insurance [employer] Care Teams Agronomy Internship Relationship Specialty Start Date End Date Nano Back PA [address] [place] [address] [place] [address] [facility] 01/07/24
--- OUTSIDE RECORDS SUMMARY | 2024-10-05 21:42 | XMS_ITS | Encounter Summary ---
Author Organization [facility] Address [address] [place] [address] Care Team Providers Care Antichecking Iron Worker Name Role Phone Nazanin Nano MILLS Unavailable Encounter Details Date Type Department Care Team (Late st Contact Info) Description 08/25/2024 Abstract [facility] OB [address] [place] [address] Robert Marrero DO [facility] Diamond [place], [facility]11 Social History Tobacco Use [...] BCP OB [address] [place] [address] Robert Marrero DO [facility] [address] [place], [facility]11 10/26/2024 11:00 AM EDT Ancillary Procedure [facility] BCP OB [address] [place] [address] documented as of this encounter Visit Diagnoses Not on filedocumented in this encounter Care Teams Antichecking Iron Worker Relationship Specialty Start Date End Date Nano Back PA [address] [place] [address] PCP - [facility] 01/07/24 documented as of this encounter
--- OUTSIDE RECORDS SUMMARY | 2024-10-05 21:42 | XMS_ITS | Encounter Summary ---
Author Organization [facility] Address [address] [place] [address] Care Team Providers Care Roll Grinder Operator Name Role Phone Nazanin Nano MILLS Unavailable Encounter Details Date Type Department Care Team (Late st Contact Info) Description 08/25/2024 Abstract [facility] OB [address] [place] [address] Robert Marrero DO [facility] [address] [place], [facility]11 Social History Tobacco Use Types Packs/Day [...] Routine [facility] BCP OB [address] [place] [address] Robert Marrero DO [facility] [address] [place], [facility]11 10/26/2024 11:00 AM EDT Ancillary Procedure [facility] BCP OB [address] [place] [address] documented as of this encounter Visit Diagnoses Not on filedocumented in this encounter Care Teams Roll Grinder Operator Relationship Specialty Start Date End Date Nano Back PA [address] [place] [address] PCP - [facility] 01/07/24 documented as of this encounter
--- OUTSIDE RECORDS SUMMARY | 2024-10-05 21:42 | XMS_ITS | Encounter Summary ---
Author Organization [facility] Address [address] [facility] [place] [address] Care Team Providers Care Program Management Manager Name Role Phone Nazanin Nano MILLS Unavailable Encounter Details Date Type Department Care Team (Late Contact Info) Description 01/03/[address] [facility] OB [address] [place] [address] Robert Marrero DO [facility] Diamond aLmb, [facility]11 Social History Tobacco Use Types Packs/Day [...] Description 10/19/2024 9:00 AM EDT [facility] OB [address] [place] [address] Robert Marrero DO [facility] [address] [place], [facility]11 10/26/2024 11:00 AM EDT Ancillary Procedure [facility] OB [address] [place] [address] documented as of this encounter Visit Diagnoses Not on filedocumented in this encounter Care Teams Program Management Manager Relationship Specialty Start Date End Date Nano Back PA [address] [facility] [place] [address] PCP - [facility] 01/07/24 documented as of this encounter
--- OUTSIDE RECORDS SUMMARY | 2024-10-05 21:42 | XMS_ITS | Encounter Summary ---
Author Organization [facility] tem Address [id number] [address] [place] [address] Care Team Providers Care Supervisor Mold Yard Name Role Phone Services, [facility] Primary Care Provider Encounter Details Date Type Department Care Team (Late st Contact Info) Description 04/05/2023 Telephone [facility] Certified Nurse Storeroom Clerk - [place] [address] [facility] [address] [place] [address] Dorota Dewitt Social History Tobacco [...] documented as of this encounter Care Teams Supervisor [place] Relationship Specialty Start Date End Date Services, [facility] [address] [place], [place] PCP - General Family Medicine 05/01/24 documented as of this encounter
--- OUTSIDE RECORDS SUMMARY | 2024-10-05 21:42 | XMS_ITS | Encounter Summary ---
Author Organization [facility] Address [address] [place] [address] Care Team Providers Care General Activities Therapist Name Role Phone Colon, Nano MILLS Unavailable Encounter Details Date Type Department Care Team (Late st Contact Info) Description 09/23/2024 Abstract [facility] OB [address] [place] [address] Robert Marrero DO [facility] [address] [place], [facility]11 Social History Tobacco Use Types [...] Routine [facility] BCP OB [address] [place] [address] Robert Marrero DO [address] [place], [facility]11 10/26/2024 11:00 AM EDT Ancillary Procedure [facility] BCP OB [address] [place] [address] documented as of this encounter Visit Diagnoses Not on filedocumented in this encounter Care Teams General Activities Therapist Relationship Specialty Start Date End Date Nano Back PA [address] [place] [address] PCP - [facility] 01/07/24 documented as of this encounter
--- OUTSIDE RECORDS SUMMARY | 2024-10-05 21:42 | XMS_ITS | Encounter Summary ---
Author Organization [facility] tem Address [id number] [address] [place] [address] Care Team Providers Care Inspector Material Disposition Name Role Phone [facility] Primary Care Provider Encounter Details Date Type Department Care Team (Late st Contact Info) Description 10/02/2022 Documentation [facility] Certified Nurse Grinder Set Up Operator - [place] [address] [facility] [address] [place] [address] Leah Hernandez RN Social History [...] documented as of this encounter Care Teams Inspector Material Disposition Relationship Specialty Start Date End Date Services, [facility] [address] [place], [place] PCP - General Family Medicine 05/01/24 documented as of this encounter
--- OUTSIDE RECORDS SUMMARY | 2024-10-05 21:48 | XMS_ITS | CCD ---
Author Organization [facility] Care Team Providers Care Lead Tinner Name Role Phone NON STAFF Primary Care Provider LAURA Kraft Emergency Provider [phone] NICOLE Ricci Emergency Provider [phone] DAPHNIE ., DR ALEXANDRE Attending Unavailabl e KARASIK ., DR ALEXANDRE Admitting Unavailabl [facility] Unava ilable KARASIK ., DR ALEXANDRE Consulting Unavailabl e LAVINIA, DR CHRISTIAN Doyle Consulting Unavailable KARASIK ., DR ALEXANDRE Consulting Unavailabl e KARASIK ., DR ALEXANDRE Attending Unavailabl e [facility] Unava ilable KARASIK ., DR ALEXANDRE Admitting Unavailabl e ANGELA SCOTT Consulting Unavailable DINA, DR ANA Dennis Attending Unavailable DINA, DR ANA Dennis Admitting [facility] Unava ilable DINA, DR ANA Dennis Consulting Unavailable BOATENG ., MR CUADRA Consulting Unavailable KARASIK ., DR ALEXANDRE Attending Unavailabl [facility] Unava ilable KARASIK ., DR ALEXANDRE Admitting Unavailabl e KARASIK ., DR ALEXANDRE Attending Unavailabl e [facility] Unava ilable KARASIK ., DR ALEXANDRE Admitting Unavailabl e KARASIK ., DR ALEXANDRE Consulting Unavailabl e JOANNE HUDSON Consulting Unavailable ENIO ATKINS Consulting Unavailable [facility] Unava ilable KARASIK ., DR ALEXANDRE [...] DR ALEXANDRE Attending Unavailabl e [facility] Primary Care Unava ilable KARASIK ., DR ALEXANDRE Admitting Unavailabl e KARASIK ., DR ALEXANDRE Consulting Unavailabl e ZIEBER, ANGELA Dennis Consulting Unavailable KARASIK ., DR ALEXANDRE Attending Unavailabl e KARASIK ., DR ALEXANDRE Admitting Unavailabl e [facility] Primary Care Unava ilable KARASIK ., DR ALEXANDRE Consulting Unavailabl e KARASIK ., DR ALEXANDRE Consulting Unavailabl e KARASIK ., DR ALEXANDRE Attending Unavailabl e [facility] Unava ilable KARASIK ., DR ALEXANDRE Admitting Unavailabl e WEST, DR CHRISTIAN Doyle Consulting Unavailable REQUEST, DR AMBER ESTRELLA Consulting Unavaila ble Unavailable Primary Care Provider [facility] Nano Foster Unavailable Services, [facility] Primary Care Provider SERVICES, [facility] Unava ilable LEIGH SMALLS Attending Unavailable SERVICES, [facility] Unava ilable ANGELA GONGORA Attending Unavailable SERVICES, [facility] Unava ilable JULISA LAZO Attending Unavailable SERVICES, [facility] Unava ilable COLE BLACKMON Attending Unavaila ble SERVICES, [facility] Unava ilable FRIES, ZEKE S Admitting Unavailable FRIES, ZEKE S Attending Unavailable SERVICES, [facility] Unava ilable SERVICES, [facility] Primary Care Unava ilable JANES, ROBERT Attending Unavailable JANES, ROBERT Attending Unavailable JANES, ROBERT Attending Unavailable JANES, ROBERT Attending Unavailable TAYO NANO Attending Unavailable JANES, ROBERT Attending Unavailable JANES, ROBERT Attending Unavailable JANES, ROBERT Attending Unavailable TAYO, NANO Attending Unavailable Martin PAC, Errol Maldonado Attending Unavailable Martin PAC, Errol Maldonado Admitting Unavailable JANES, ROBERT R Primary Care Unavailable Provider, None Primary Care Unavailable JANES, ROBERT R Attending Unavailable JANES, ROBERT R Admitting Unavailable JANES, ROBERT R Admitting Unavailable Provider, None Primary Care Unavailable JANES, ROBERT R Attending Unavailable Provider, Unlisted Primary Care Unavailable Abner Harvey Attending Unavailable Abner Harvey Admitting Unavailable Provider, None Primary Care Unavailable Oneil Littlejohn Attending Unavailable ROBERT MARRERO Primary Care Unavailable JENN Garzon Attending Unavailable JENN Garzon Admitting Unavailable Allergies Allergy Classification Reported Allergen(s) Allergy Type Date of Onset Reaction(s) Facility (1 source) Alfentanil Drug Allergy [facility] Repository (2 sources) Azithromycin; Translations: [AZITHROMYCIN] Drug Allergy 2 [facility] Repository (20 sources) Azithromycin Drug Allergy 2 [facility] Work Phone: (20 sources) Macrolides And Ketolides Drug Allergy 4 Unknown [facility] (20 sources) Wound Dressing Adhesive Drug Allergy 4 [facility] (20 sources) metroNIDAZOLE; Translations: [METRONIDAZOLE] Drug Allergy 4 GI intolerance [facility] Work Phone: (5 sources) Adhesive agent; Translations: [ADHESIVE] Propensity to adverse reactions to drug 3 [facility] (1 source) Adhesive bandage; Translations: [Adhesive Bandage] Propensity to adverse reactions (disorder) [facility] Repository (1 source) Azithromycin; Translations: [Zithromax] Drug Allergy [facility] Repository (1 source) metroNIDAZOLE; Translations: [Flagyl] Drug Allergy [facility] Repository Medications Current Medications Medication Drug Class(es) Dates Sig (Normalized) Sig (Original) [id number] 200 actuat albuterol 0.09 mg/actuat metered dose [...] tablet every 12 (twelve) hours 0 Active docusate sodium 100 mg oral capsule (3 sources) Start: 09-07-2024 End: 09-17-2024 take 1 capsule by mouth in the morning docusate sodium (Colace) 100 MG capsule Indications: Constipation, unspecified constipation type Take 1 capsule (100 mg) by mouth in the morning and 1 capsule (100 mg) before bedtime. Do all this for 10 days. 20 capsule 09/07/2024 09/17/2024 Active doxylamine succinate 25 mg oral tablet [...] MG tablet 0 Refill(s) 0 03/06/2023 Active metoclopramide 10 mg oral tablet (11 sources) Dopamine-2 Receptor Antagonist Start: 07-27-2024 End: 10-08-2024 metoclopramide (Reglan) 10 MG tablet Indications: Nausea and vomiting in ([facility]) Take 1 tablet (10 mg) by mouth in the morning and 1 tablet (10 mg) at noon and 1 tablet (10 mg) in the evening. Take before meals. Take 1 tablet by mouth 30 minutes prior to meals 3 times daily as needed for nausea. 90 tablet 09/08/2024 10/08/2024 Active naproxen 500 mg oral tablet (1 source) Nonsteroidal Anti-inflammatory Drug Start: 05-15-2021 take 1 tablet by mouth twice daily Naproxen (Naprosyn) 500 mg tablet Active 500 MG PO Twice daily May 15, 2021 9:24pm ondansetron 4 mg disintegrating oral tablet (10 sources) Serotonin-3 Receptor Antagonist Start: 11-21-2023 End: 02-19-2024 take 1 tablet by mouth every six hours for nausea ondansetron ODT (Zofran-ODT) 4 MG disintegrating tablet Indications: Nausea and vomiting, unspecified vomiting type Take 1 tablet (4 mg) by mouth every 6 (six) hours if needed for nausea or vomiting 30 tablet 2 11/21/2023 01/14/2024 Discontinued Start: 04-23-2023 End: 05-23-2023 take 1 tablet [...] (-1 ORAL) Take by mouth. 0 Active 27-1 MG tablet (20 sources) Start: 03-13-2022 take 1 tablet by mouth once daily 27-1 MG tablet Take 1 tablet by mouth Daily 03/13/2022 Active Progesterone 200 MG suppository (6 sources) Start: 06-30-2024 End: 07-30-2024 Progesterone 200 MG suppository Indications: History of miscarriage Insert 200 mg into the vagina at bedtime Insert suppository vaginally every night at bedtime until 12 weeks gestation 30 suppository 2 06/30/2024 07/30/2024 Active Start: 05-13-2024 End: 06-12-2024 Progesterone 200 MG supposit ory Indications: History of miscarriage Insert 200 mg into the vagina at bedtime Insert suppository vaginally every night at bedtime until 12 weeks gestation 30 suppository 2 05/13/2024 06/12/2024 Active Start: 05-02-2023 Progesterone 2 00 MG suppository Indications: H/O miscarriage, currently , [...] Classification Problem Date Documented Da te Episodic/Chronic Conditions associated with dizziness or vertigo (4 sources) Dizziness; Translations: [Dizziness and giddiness] 10-05-2024 Episodic Hemorrhage during ; abruptio placenta; placenta previa (1 source) Threatened ; Translations: [Threatened ] Onset: 5 Episodic Immunizations and screening for infectious disease (3 sources) Contact with and (suspected) exposure to infections with a predominantly sexual mode of transmission; Translations: [Exposure to sexually transmissible disorder] Onset: 3 10-05-2024 Episodic Menstrual disorders (4 sources) Irregular menstruation, unspecified; Translations: [Missed period] Onset: 3 Chronic Nausea and vomiting (3 sources) Nausea with vomiting, unspecified; Translations: [Vomiting] Onset: 4 Episodic Other complications of ; puerperium affecting management of mother (4 sources) Retained portions of placenta and membranes, without hemorrhage; Translations: [RETAIN PORTION PLCNTA MEMB NO HEMOR] Onset: 3 Episodic Other complications of (5 sources) Missed ; Translations: [MISSED ] Onset: 3 Episodic Other complications of (3 sources) Vomiting of , unspecified; Translations: [Unspecified vomiting of , unspecified as to episode of care or not applicable] Onset: 5 09-07-2024 Episodic Other gastrointestinal disorders (2 sources) Constipation; Translations: [Constipation, unspecified] 09-07-2024 Episodic Other lower respiratory disease (4 sources) Dyspnea; Translations: [Shortness of breath] 10-05-2024 Episodic Other and delivery including normal (18 sources) Encounter for supervision of normal , unspecified, first trimester; Translations: [Encounter for supervision of normal , unspecified, second trimester] Onset: 3 Episodic Other screening for suspected conditions (not mental disorders or infectious disease) (4 sources) Alpha-fetoprotein blood test status; Translations: [Encounter for screening for raised alphafetoprotein level] 10-05-2024 Episodic Residual codes; unclassified (2 sources) Gestation period, 13 weeks; Translations: [13 weeks gestation of ] 09-07-2024 Episodic Residual codes; unclassified (2 sources) Gestation period, 17 weeks; Translations: [17 weeks gestation of ] 10-05-2024 Episodic Sprains and strains (1 source) Sprain of ankle; Translations: [Sprain of unspecified ligament of unspecified ankle, initial encounter] 07-18-2021 Episodic Superficial injury; contusion (1 source) Contusion of knee; Translations: [Contusion of right knee, initial encounter] 05-15-2021 Episodic Unclassified (1 source) Vomiting During Onset: 5 Unclassified (1 source) nausea, Onset: 5 Unclassified (1 source) Threatened Miscarriage Onset: 5 Unclassified (1 source) Cold Like Symptoms Onset: 5 Viral infection (1 source) COVID-19; Translations: [COVID-19] Onset: 5 Past or Other Problems Problem Classification Problem Date Documented Da te Episodic/Chronic Abdominal pain (5 sources) Pelvic and perineal pain; Translations: [Pain in pelvis] Onset: 10-17-2021 Episodic Esophageal disorders (1 source) Gastro-esophageal laceration-hemorrha ge syndrome; Translations: [GASTRO-ESOPHAGEAL LAC-HEMORR SYND] Onset: 04-04-2022 Episodic Inflammatory diseases of female pelvic organs (1 source) Inflammatory disease of cervix uteri; Translations: [Inflammatory disease of cervix uteri] Onset: 05-01-2024 Episodic Other complications of (4 sources) Mild hyperemesis gravidarum; Translations: [MILD HYPEREMESIS GRAVIDARUM] Onset: 04-02-2022 Episodic Other complications of (1 source) Diseases of the digestive system complicating , first trimester; Translations: [DZ DIGESTIVE SYS COMP PREG 1ST TRI] Onset: 04-04-2022 Episodic Other complications of (1 source) Nausea and vomiting; Translations: [Vomiting of , unspecified] 04-05-2023 Episodic Residual codes; unclassified (1 source) 8 weeks gestation of ; Translations: [8 WEEKS GESTATION OF ] Onset: 04-04-2022 Episodic Residual codes; unclassified (1 source) Less than 8 weeks gestation of ; Translations: [< 8 WEEKS GESTATION ] Onset: 04-05-2022 Episodic Residual codes; unclassified (20 sources) Gestation period, 38 weeks; Translations: [38 weeks gestation of ] Onset: 11-28-2023 11-28-2023 Episodic Results Test Name Value Interpretation Reference Range Facility Urinalysis macro (dipstick) panel (U)on 10-05-2024 Bilirubin, UA Positive Negative - 4(70) +++ mg/dL [facility] Comment on above: small Blood, UA Positive Negative - 50 Villa/mcL [facility] Comment on above: trace Clarity, UA Clear [facility] Color, UA Yellow [facility] Glucose, UA Negative Negative - 2000(110) ++++ mg/dL [facility] Interpretation and review of laboratory results Abnormal [facility] Ketones, UA Positive Negative - 160(16) ++++ mg/dL [facility] Comment on above: 15 Leukocytes, UA Negative Negative - 500+++ Pierre/mcL [facility] Nitrite, UA Negative Negative - Positive [facility] pH, UA 6.5 5 - 9 [facility] Protein, UA Positive Negative - 2000(20) ++++ mg/dL [facility] Comment on above: 100 Spec Grav, UA 1.025 1 - 1.03 [facility] Urobilinogen, UA 1.0 0.2 - 12 mg/dL [facility] Coding Summaryon 09-23-2024 Coding Summary HTMLBase 64 RqtvqczbTNc8zAo+PGhlY WQ+ST1IWJNlS15svNHkbT 0eH3XICQyMWwcuOZLQQXl ZLvRfieXzSK2paURsQXOr IC8+YT6qTBSuMiihdGYug 8D0mWH0F53krv3mRMpbrP H6CLIaSgLhtrnqb6konDb 6IDcuNmluOyBt KNHccK82ZZD3eV44Ws12v QFqqUIqv0gjzGb6EqVbXC BhMPV3fQvrJBand7VyCUJ aQ75jgYXkj5J0 JZGsnRscbAGoWnEqaDK0l Y0mMCrwokgnb7lifqeaGc j4qp63lQCfj7B7eOF9H2N hsnU2KVKroMZj AvmqtMHDwZ2reyqfc0hpe fmjIbWgJIMiPNd0NDn4QX NvaZtsXsBmPA55HQW7RLO arhNkV1KpTENt vYwkIhK2p4C7Xa7HQ9PXJ sknS9YGCADXXToqaRJ+PC 18vd33C8YcJrtbGlv2QEN bYZF5nNW8yH2p EHAfNZkkw8O6nND0L8Pcq jRems6px0chXRLySWnjC8 6jhQUpn8F1PQAdkBW8BKF exEutHwYkfH77 Oyc+ZLQpaCpij0VyYglgp 0wqu4fjpCk4TfzpFMTovv QuiSadIMC0f6ZwRp9gIHI klYW0mFL2vH2l KrAcOhY7EWuqI925UbLdp JRgLkxsH73iQ3SefQS+PH DtBhi9IKBbjRufJG2vU6B hZGRpbmctbGVm wNhcUV2iLKLnurlzRMDfu F4lZISaP4z3TkTmItC8CZ unW5UuMMGxmoscPt29nO9 pDoQtQbF2NJvb J9MwniU5QRSzaWJfBJuwX ZB8F93be4D6XATxFIYpNW A3xTU9bV2bkDasmiwhtRA mdDsgdmVydGlj KKvxWJobM033XRXciRvcL kNvZGluZyBEYXRlOiAgMD YvMTgvMjAyNTwvdGQ+PHR kXXI4eXscKUEt cSIaPIgwGu2lnIzeeUtvE S2wFJXokfyoYTFnqO0sWF SmjWXpnNukPS2aKGGrmwd tz505UfNwTLL0 ZOTmyWLuL5QkyK7hAsAqS TTuBRSaL8VwoQTwSTiyS3 41LFsjWqK7KOJjdsFjW0O sLWFsaWduOiB0 i1A3Fe1Ql5VajawjA5Vzp SIsIrSaObliVNl3I5UbYu wvdHI+HC40CXFnOE46FIy 3KFU7fOxqODcz KXNtS9PjkQ6gQcBzIDSbY GRkOyc+PHRhYmxlIHdpZH RoPScxMDAlJyBzdHlsZT0 hFi0dUCSlMOZg zSyegSMgDhScf0ndUVYkD NjcZM0doBidG5YkdJO4PK Cdo9v7Og73Y60bC2NjrHK +TDDhqUV4jEW7 uR9eAqFcKlR3EHxeF195O kEfdHDpXgaho2eoi5pcnQ k2WrZ0IIFcoaZnzFmfHGK 6g0RvBl41M15r IHdpZHRoPSIxNSUiIHZhb Uinhq3rqB1rWy1+PGNvbC Z8gEB3tS9aPhBlYoE8KOm tV619VhAyiHAj Mvsnd1tuj7fmxEw7UnJjP VDamnUlnQfsLDH9i3UxNl 99W7PpvWozp0SgDnl1bg2 7kXFod2B1mHE9 C6BkOYZiwkpmgBJziWwzO P5lSSUyckgtKUNzoV6eDA KaE8x4XkNeWnC5QBgeT6M wynU2AZPomAYb GWPjqBTMhO8hpihib3vfw ywaCiWbMCEhKFn2CXq9JD DwnZfbGdFqOLG6YqG0UFT 3aYKecC7kcYcs zhcixQ0hKbf+TJQ3vTGrd MKLCK7aRcrpmOK+PHRkIH C0jNxeHPkoCNAmjQ4iEFP oQ4r8DsQjDdF1 PAtoQ6GnvrZ0XSBpqBKdX EKcfJSAhB7uhetev5ghau ybMdUhIHLzOIz7ABc1FYH saWduOiBsZWZ0 CnU5ZQT9qVDcyI8igOaou xwanP4cDrt+QmlydGggRG K5WDg5Z3IxJka6KUYekGt qIL3ucBKaRUyz Qe8zjWkibUzvSX7jEUIvq szoy171CgByd9ffPKMfdR QtYMubGCY0S12rn9W8JZH fJCBdOKL8zRS1 wY8zxRthbbsvdXMiyXkpz bDpuLxqCXgbEZabQ363FL QqqFkuHoMdYJo3E6ToFrs 4HGHjiNzdMU3x wQPdLUneIp4jxQfuxPnkU J5tESWvpmtmt294QjVkd1 ddWZNteXOdXExwDBH9L11 yp4L8YICiJVPf ZZR8wGD4jD2ulLcyctxwn GVmdDsgdmVydGljYWwtYW glP362HIZvaAljAaRaaTs 1H9QfRrb6LKFi wSggRY5uaRJkVEiyJc2ye LsdfOkmZL9mDMSonlnsp4 03LqPtb3qxWTCbpWIlYMn eCQL5S56rq2X9 MZCbXMDkAGQ9uRX3vC1zw GlnbjogbGVmdDsgdmVydG oiRDmbEKknF683QIGrePe nPlBhdGllbnQg VItiZHl9Q8YjBfzooGH+P Q80NLJuDP62fWQqvCGwj1 axkMn1FkAgEMOtHAB1lJz lSDjvm9UpRCMf G86azFJbx7W2RSRpcZjcs YUzXrYlwYX9oI5gQZxvvc pov1ejwfojWvuhl0bqdn5 4pJ51Z95iNLvv ZHRoPSIzMCUiIHZhbGlnb u4ifU7iGx7+CCOnyKO4jS W7kS4iGIQeKgU0MGsfR96 9InRvcCIvPjxj w7rgy0kzhRk7EwI3MQEmi jIayQxsXPG4h2QgMh27T0 9sIHdpZHRoPSIyMCUiIHZ esFkixp9mpH5v Ii8+RYYqeCY0kVS2tL2gW vSgRiW3MQtjG905ZvDqtK AcRztrS74eQ1NeaZV+PHR pQkz3HRHivHco AT2aqOJmNQkhVn9vINE6H gOyFoJyHXoeQ4AvCNIvql ztviylxQM0OARtPNOnnE7 2Ei5xbBphQZCt wFPMuD4llbyeq6serhrbY oIxDIZpVNh4NQj1IJOfyW rcRmGnJWD3OxS5EZQ9rOR vaR3qmYednzmp zU5vE1ToCMHxxbfkTk49r S2jYbJrTdR0AFjnPpe+R0 nHNbQAAEvbD7qJEWGPFNh IGW7OBTomgDK+ QXXyMTK7oVqfVZpoQJNpv S2aGFYqI4b7JaRfMcW7VI hzN9SuBMUbnlgeAv60yF8 sHjNxRtQ2NBgn E8NxyfF0JTAveWYiLRehW AQ0F35wu8I6MBObIHUaFS Q8tRW9pA1hoPygdowwbQW mdDsgdmVydGlj ENoiNEhmT144TWObuYfaQ rO4MyNaFxCiEPJ0Q6YrWr t4LKAkdGkhLI2zrUVjENn wGi1tnUeinEuf FS3cIKGlkhpiFWQpnH4eN SWnuDZzkMjuRA4vBFNndw ijq760QpXgFGQ5RXVydCB fI7BmbI1cWkGd KWGwEQWeG5GbtQFxPVvwW 895XPcoZaK3YMAxtdWhR0 KySIEwzWerFhY7i8J6Uq8 yMiBZZWFyczwv dGQ+BFPfBKL5oAlkHTjjO FAyhQ0rIYWjC6y6GnSxNz A9WTkkD4ShISLvijloPf7 2pN5hEwJlZwV9 CFhcX7UchbL6YDGjtFYqJ FyfNIO5Y05mx0J6SGOwOR OuFUF3lWI4zJ7oyFiaafh gbGVmdDsgdmVy lXpjHNseNTdmG617CLLio DsnPkZFTUFMRTwvdGQ+PH SdYTI4aAtzCEbwZPRajL9 nBGZcX2w4EsSp WcQ7YYhvN4NeBLYreiueH x54iF3qIrYvBcE1UXqkA0 HwbrY1OHSchTDbQRlcJCW 5O50in3I5PVJd NQWuGUK2gXN8lW5twEnxh jogbGVmdDsgdmVydGljYW euBKwvQ996XBLtsCogZt4 MSH44OX45G5Cp PjwvdGFibGU+PHRhYmxlI HdpZHRoPScxMDAlJyBzdH zzIZ3tNx8dREEkVCLlaXf zxVVeNgTes0oa EUEsQLigKI9khApwS9Dkw LN0OZXic0f7Kf38G22uW6 JvdXA+CZLekYZ3aTT1eD4 tCdMrCzU7IGvg R543ToJenZLxYankl2eoi 0mjtGv9IcQlERExgsZtcU kkMZV5x6FgYk40W27dTKx pZHRoPSIyMCUi DZCmqJnfau8saI0sLr4+P DOujWW0wCO0wC0qOfBnDo W3NOhiF320NcOqtAYwQvd gO08pO8FqjXN+ QNCvPrz1TVMgqCjdFR5jq JYoCQvdSm2uAWL1JdNsRw NiWHlkN4ZaDHKnouyulqp dqYO6IPNhCKQm dA91Sx9pyWdkVv8fSAZwQ SW7RYLsoSFgR8SzjR2wEr HpCUVnOFVdD8BvfCQzZNx fE511WMjlBcU4 WZQqacBgV5UjZKDvzAxfC nQ4h7X4Gy4VmNhzdQWwIM 1rWsNpAWt2R1PwDzc8AJY dnBvhKT7hcPTy VFsjEk1azSileXdwOZ2zP NLfpdzzh336KuMlf3peTP MtfARfUWhrSDN0U11la4A 6JATfMPZpVGH3 qEP8eI0xkEmexrkkySWcv DsgdmVydGljYWwtYWxpZ2 45YZIraJurQvMROot5D8M vDez2BLJxcChc QI2awPCyLOcpDs7wbBzuu HltWA1yHYNpuowvz509Co Wlk0ioVFCspDWsDRvjXNM 0E71ol6P5SATr GALiLZA7wZO0uC3pjBpsr jogbGVmdDsgdmVydGljYW qlLPwmV192DGTeaXjtVv9 JItn6O0PfTxa3 GRIbsIvxEZ8pjSSlPAkhM y6bhXmheGvwKH1wPBXixw elr866OdBdz0ceESVisAU rSOunKRF2U28h u4F8VDHzMTWdJCV9lWU7k S4voNvtoruaqCVwrAfacy CtfVzzKYscGMptY933GYX vcDsnPlBheWVy OjwvdGQ+TD49ls96U6EcA nsyHnl8JMQjWSF4yYG7rW 6aZHEcCXvhx5D9sNR8U7K yomQgwk4vl7sk YXB (more content not included)... Normal [facility] POCT Rapid Strepon 5 S. pyogenes Ag IA Ql (Unsp spec) Negative Invalid Interpretation Code [facility] Comment on above: Performed By: #### [id number] #### [facility] (DEFAULT) [address] [place] [address] ALL RUBELLA IGG ABon 025 RUBELLA ANTIBODIES, IGG 1.46 Immune >0.99 index [facility] Comment on above: Non-immune <0.90 Equivocal 0.90 - 0.99 Immune >0.99 Performed at: [facility] [address] [id number] [place]Stewardess [place]: Yvan Bolton PhD, Phone: [phone] HCV ANTIBODY RFX TO [facility]ANT [facility] Duglas 09-08-2024 HCV AB Non-Reactive Non Reactive [facility] INTERPRETATION: Comment . [facility] Comment on above: Not infected with HC V unless early or acute infection is suspected (which may be delayed in an immunocompromised individual), or other evidence exists to indicate HCV infection. No Panel Informationon 09-08 [facility] Urinalysis macro (dipstick) panel (U)on 09-07-2024 Bilirubin, UA Positive Negative - 4(70) +++ mg/dL [facility] Comment on above: small Blood, UA Negative Negative - 50 Villa/mcL [facility] Clarity, UA Clear [facility] Color, UA Yellow [facility] Glucose, UA Negative Negative - 2000(110) ++++ mg/dL [facility] Interpretation and review of laboratory results Abnormal [facility] Ketones, UA Positive Negative - 160(16) ++++ mg/dL [facility] Comment on above: 15mg/dL Leukocytes, UA Trace Negative - 500+++ Pierre/mcL [facility] Nitrite, UA Negative Negative - Positive [facility] pH, UA 7.5 5 - 9 [facility] Protein, UA Positive Negative - 2000(20) ++++ mg/dL [facility] Comment on above: 30mg/dL Spec Grav, UA 1.02 1 - 1.03 [facility] Urobilinogen, UA 2.0 0.2 - 12 mg/dL [facility] Coding Summaryon 08-19-2024 Coding Summary HTMLBase 64 GorwduxfVYs9jSj+PGhlY WQ+KY9WQBYaU50gjYMtuX 9vQ1ZMDDqQVufgWDPWKNh DMpEyaeExOG4skRArSOTy IC8+DX1oUAJbIahcfRSrj 2F4qTG5M75ugd9gRJbkfF X6UXXgYrWxoqryw5qhoTp 6IDcuNmluOyBt TLZqvV82GOH1rT55Yz03f GPwhAIba6svyUt2QaCoPQ LySRA3uPdaPNflk0DdCDG bL09xyNHce6V4 MOUjpTfvxTZdKrEbmHU4q U2pHYubwgmwu6taohstLc t3cj93sKPez4R9mCW5R9A vpbH2SWZlqFRx UgpjpIWCqO7xtntlu2qng mgkZtEyVLChQLh3MEp2TP IrbVxbPmMwBK38OSH1VQX iutRhG3JlZDSt lFhsKdY2o9U4Ef6RM8LCO cxqR8XCBPTVAIyxdKT+PC 57on04M8XbVccpNxy8NJL xRKX3cRX3kR7a ZKTgDHvhn6Z5jJU9V5Qwp hNmpw9dw8htJFNpWXqlI8 8jiMIhw9G5OAYrjWW9OAD pbXvnBbOogZ70 Oyc+KRMivPavu0ZhHczwx 1ezl5xmbWj4MaeeVIPuum MuvMtqEBW2v9IgRn9aEPT edZA0qVN2dQ9l FtJoHeC3BWwhC415EhIjt BSvMdxkX36fZ1EllWX+PH MbYoc8GZQdvRueJA7pL5E hZGRpbmctbGVm oDieCS0rBPZlhkbdHWCww B2vDVHmY5q7GiQsCdC8FC qeC4DhQVAbtfmnMm24aG5 vUgEmNnE9XAjr T0XawaB5AARirTLbVDjtM IA7M84kx3M5ZEMpKEEiAV X6qOT4wG2iuSivpmzzbTK mdDsgdmVydGlj KWuhJRghE844XKDlgHcwM kNvZGluZyBEYXRlOiAgMD UvMTQvMjAyNTwvdGQ+PHR wHDN0xMfyRTFu aZMdLGgqXk8jjShmtYfvI U1tFKJyklbhMWKtsI2bEQ RgqPYaiOijVG4cFKWhnqg em085UeEyKGL3 EXBqiEOyC3KmnJ2tZjMpO EKeLWQoV7NdkPCqAZukX2 84MMzjKwF3XCCvhkSjB9P sLWFsaWduOiB0 t3Y4Sn2Yt1DxiivcN7Hqz BCdWjQeLpzfNSn0P0LtIr wvdHI+QW79XJMpKO41JTt 5TVV9hOseKAlu EMMkQ8UwhL0uViIeOIYxQ GRkOyc+PHRhYmxlIHdpZH RoPScxMDAlJyBzdHlsZT0 qGi4hPGWdRSJc oSaamJKeJdSuk1iaRQHnE ZjvMV4duHwgP5SdmFI0RN Tbg4g6Gi35A19gF9GoyPB +LVCcfDK6hAF1 rV4lJpGpKrL6SYcrI758T xYdzBJrBuqfz3hxz9rldN g5NkC8VOSvyuFafDqaRBZ 2k0OzGb30E28y IHdpZHRoPSIxNSUiIHZhb Dmgtf2hfQ5kQe9+PGNvbC R7bXH4hV0jQaEbYxU6DFj cP538ZrPswCOg Qjmkg5pwy7qhrRr0FwGaI PJisgSnkAnwRRW7z8SaVx 46R6LpuCcqj6WfZlu8kw7 1lUFoe3U5rTC6 T5IqIORtssprzLRkzDmeI H9kOOBydpyeDZEteH7sCL BzM8c0GpJgJsF0YGhiE5S zmdF0ECNyfPPd IZLkvEUMfC9gvvxnk8ded bfaGlVlLKCzWQy0XQu5SL YkxNkxFhZnEWB1DsK4EYB 6yODhdL4veIzl amvymL2rEld+FBG2vCGqa YBWAE2qFwwgdTF+PHRkIH G9uOsnINrjKNTmwM9fQSR xQ0s2ZzTkPtR6 OWuyB2GfwrP3WCFmsBVfZ JJanZUKqN2unfsik6rnoi jxGnAwYQCxAXt6UPo4PYQ saWduOiBsZWZ0 NhO7CST2fXOjlF0gcKyiy iqecT3iJmh+QmlydGggRG A6DFr5M9FzVoi4QTEolWf gNP6awWXqYVnd Ni2ueDpofSzsRG7gCKSsi iapz704WvTrt2aoXQXwxK QuALydYVO0L63yw4B0OBS lDMQgAYW7vPT5 xP7eyMautwwduDTnsTalr pTqiPnnZScpKIkqN212LU HoeAftPsOeEKt8K3KpLcf 2HZVimPujLS4h aLYpETsvJe9qnFovtMpxN X4pIZVbknnat027DvBog2 xgCYToqQQgNKiiNBY2W32 ie8T2BOJmHURt BXQ7fLM6zE1hgZvavsgrf GVmdDsgdmVydGljYWwtYW pjT744EXVhiVbsBrZslQs 2K2DlMwy2AJHb tTsuMF7rbDXdHOutHs1qm ManeNhkBU8mCVWqquceq6 95HvZfo9sxPVYlaOXcDNi xJEU5T99pf5I1 CZYyQCKvLFM6pBW1xM7vr GlnbjogbGVmdDsgdmVydG zeEHveZJmmP571IVRcwYu nPlBhdGllbnQg KJxyDWl7U5AhAihbvAJ+P K08CHYyMW61xLFarXHbu4 scyTj5UsIiVJFlSLX6oJh zQSejf0PfMEGi Z49mzCZbn3F3IQJdwUlsv QGsWpRarSO7iP3pJQyexd axc1kvoufgHvbru7prte4 1dW73E66kYUiy ZHRoPSIzMCUiIHZhbGlnb z9vhB3jCi1+OPLiySB4vI H9tO7kQYJcDbC9BEigW56 9InRvcCIvPjxj q0ilq5zlaAn8RfL3AUOde gSxxIycRBA3y4XxJt44M9 9sIHdpZHRoPSIyMCUiIHZ zyVxtdh7quB6c Ii8+WOUnrZQ3kJF7rN2gZ rHbObR1YHgcG312VqGvlQ JkJrojT92lZ4EhqRB+PHR pVkl5FJMseJkw YN8zaNKzHTsfUz4oOSO6M yEcBmQxZQhuO2JqTQJvfs sbijoikFS3RXEfAJMwyD6 4Os2zjTkjOSHp mMBKvC9nkkrlj5qoqaacX cMzESWgUYv2KPe7VPXipN oyIvCsXRG3RmQ8HEY7zJR znS0llDrojcnv vO5xU1ZnQZAuvktmKp79r U5rDfBbLpP2SBadJmy+R0 sJKvGRSTgdG1qLKUEMLAl DCC5QGWkefTJ+ CPYlCST3pFcdQYyyZPWpz O9eZZGpU1n7GeZvLdX2IS hcZ8JhLZKnavchFk98yJ4 aWaPxIzW1ISdz W6XhzuB1ZBNecCYcOUjdM QG0A56bx7E6LJHxSYEfKK S1ePE0hL0ehLpcaslimYI mdDsgdmVydGlj FZsaMNhiL385YQYicHknB eZ2YbMiNwQyUIO0I2VyGd e2XVCfpJqrPW7mvLKlWEm mSe1juKfydWvf SK1qLHLekyupYJBctE0uY CCacVEdjDieAP9aMGRjyq hyx022CnSgUWC7OXIurHP zH4UqpY8ePpGh KIToYWVlQ0AzzQTzOJbwC 349MXzrPaL4OSFqdxRhO4 DiGLTzgApoHiR2h6R3Zl4 yMiBZZWFyczwv dGQ+UVUlXWZ2cDccCYkiC SUufY9rJMIwX1f2IqSkKf F2IZgnZ3JrGSFkbqmvWt3 4uG4iBlGsOwB7 FGexP4ZcnbI4YEOibLRoM EqiBIE0V94ig1T5QCVpAU OiBJY2rWL6oD0kyRmqrhr gbGVmdDsgdmVy jGysVUlmFEleG884ANZee DsnPkZFTUFMRTwvdGQ+PH GeIKG2oGunHAwlIPQamU1 sAWDjB1x6SrWh UgS6VCvaL2VpVLPszqoeE j06aC5ePjPqRiU7MEmmE8 TeyuR2DSMrrWTbWEfkBPR 2V12ue2N5YBUu BRAqZRY4dLT4dB9fmTrmj jogbGVmdDsgdmVydGljYW ozRVrpB353CKRnwSfrIxK wJKRhPI9vsVad dGQ+UY50uc02I5JhYtyeH mf5UWGvVUL6dKV3qJ5mPJ BaZKwry5W2qHT3F6StedL wtw2oa7hmQIMq VIxfK68huLHva4H3NLZbc YN0NUUdeErhFrQffG31Wh c+ZGAmeRdyp3SrFrdef8d ij0wcdQs9NkPq KCPvyvWsfUhaOLN7n0WgO l86W23oZMjtDUPaKVAaSC ItQAGxwJkqcl0xfL4jXm8 +ZPDvyPE1rDX1 tJ5uDoLuLdC4UScjD782U vSfqRCrPycra4hno3tdkD r8GxCzKCBtnsGyoBpcUPF 4d4IfQj09I5Wz kFgas9YyBxp3oc20wIHrq 1E9rYH9A5AmIBLmplckgE MazLznJM3ePBPbscrcGZE qvW8uCJEzC3d4 SjJtCcV0BRpfT4PgmxC6N ZGttRPwBAPgmLJRzQ8lkr bgs2aouiznCdRiADQjDOq 4EXh2FDEpoEpt VaVhLPE7KjV1JBI0nZOep Z8knLsvqchjrP8jAgz+UG m9p9yjbABoRX5bwHI8VE8 0GN89hLOfe8H0 kUB8C8KrHEDgdmskrycmq YV5CJRgTUFfqK96Vo8pkA mkSj5jEBBgGKX1QVTnzGU lV4OttX8vKoRm DZFxSHBqX5TjjWSwMCxpY 927CDbwWcV9UGRdslOwZ8 RfFJMueAqbEsN7k6W2Qu2 ALM48LV25KL56 xCMkz8H8kON0B6QvIRSgr rxliptnsDT7GQZuDRBlnO 91Rg3ycLxqOx8mYDMgFEP 6SIKyrVNqH9Ii yG4yNyDyTVCmGTQyH3Tjc OGrTLinM037NGljXbA3BP AmlzFxS3RvREGcfYcrLaQ 3w9A7Pm9XVl69 RB55AL07cGPss4M2pFR7N 5OaVTBrjinegnpnySO2VO YdPTLuzN53Xn3klAgoVb6 nSHJdLNZ4MRYw xQNyY9SceK8yHmQyXKTqR UNuA0BcsKKnOCmlT201RE yuOwJ8MLVwfeQcW4TyHLY zxWxkViP2v2J6 Qb1GJCqbqio6W8GfJecse HI+IJ99XAWrLH51zVCauS Bep9lqiMn0GcKyEUZwKNZ 0qFqkMZqwz2El ZXI (more content not included)... Normal [facility] BOX TESTon 08-18-2024 BOX TEST SENT OUT UNITY [facility] BOX1 [facility] BOX2 08/18/24 [facility] UN[facility] BOX [facility] C Urineon 08-13-2024 C Urine Urine Culture ordere d as a result of parameters set on specific urine dip and urine microsopic results. Mixed skin, or urogenital jonny. Clinically insignificant Normal [facility] Comment on above: Performed By: #### 1 [id number], [id number], [id number] #### [facility] (DEFAULT) [address] [place] [address] .Auto Diff 108-11-2024 Auto [place] % 7 % Normal 04-19 [facility] Comment on above: Performed By: #### 1 [id number], [id number], 15915009, 4960481 ####[facility] (DEFAULT)[address] [place] [address] Baso Abs# 0.1 x10 Normal 0.0-0.2 [facility] Comment on above: Performed By: #### 1 [id number], 6153601, 56300324, 8824882 ####[facility] (DEFAULT)[address] [place] [address] Basophils/100 WBC (Bld) 0.7 % Normal 0.2-2.0 [facility] Comment on above: Performed By: #### 1 [id number], 3320683, 31373741, 5603166 ####[facility] (DEFAULT)[address] [place] [address] Eos Abs# 0.0 x10 Normal 0.0-0.4 [facility] Comment on above: Performed By: #### 1 [id number], 2337771, 85375459, 4198174 ####[facility] (DEFAULT)[address] [place] [address] Eosinophils/100 WBC (Bld) 0.4 % Low 0.9-4.0 [facility] Comment on above: Performed By: #### 1 [id number], 7417611, 06547056, 5333196 ####[facility] (DEFAULT)[address] [place] [address] Lymph Abs# 2.5 x10 Normal 1.3-2.9 [facility] Comment on above: Performed By: #### 1 [id number], 9530924, 33657658, 4549627 ####[facility] (DEFAULT)[address] [place] [address] Lymphocytes/100 WBC (Bld) 23 % Normal 14-48 [facility] Comment on above: Performed By: #### 1 [id number], 7806714, 93397942, 6306521 ####[facility] (DEFAULT)[address] [place] [address] Mariposa Abs# 0.7 x10 Normal 0.0-0.8 [facility] Comment on above: Performed By: #### 1 [id number], 6436007, 14970357, 6937942 ####[facility] (DEFAULT)[address] [place] [address] Neut Abs# 7.3 x10 Normal 1.5-9.2 [facility] Comment on above: Performed By: #### 1 [id number], 7250030, 88972299, 0051422 ####[facility] (DEFAULT)[address] [place] [address] Neutrophils/100 WBC (Bld) 69 % Normal 44-88 [facility] Comment on above: Performed By: #### 1 [id number], 4869777, 54602760, 0863459 ####[facility] (DEFAULT)[address] [place] [address] CBC w/ Auto Diffon 5 Erythrocyte distribution width (RBC) [Ratio] 14.0 % Normal 11.5-15.0 [facility] Comment on above: Performed By: #### 1 [id number], 2984532, 13360479, 0384701 ####[facility] (DEFAULT)[address] [place] [address] Hematocrit (Bld) [Volume fraction] 40.0 % Normal 33.7-40.4 [facility] Comment on above: Performed By: #### 1 [id number], 3629860, 30153657, 4983295 ####[facility] (DEFAULT)[address] [place] [address] Hemoglobin (Bld) [Mass/Vol] 13.4 g/dL Normal 11.3-15.9 [facility] Comment on above: Performed By: #### 1 [id number], 0653796, 57852794, 3454745 ####[facility] (DEFAULT)[address] [place] [address] Man Diff? Auto Invalid Interpretation Code [facility] Comment on above: Performed By: #### 1 [id number], 0168535, 50474221, 9638010 ####[facility] (DEFAULT)[address] [place] [address] 83143 MCH (RBC) [Entitic mass] 27 pg Normal 24-34 [facility] Comment on above: Performed By: #### 1 [id number], 4639048, 72513593, 3947546 ####[facility] (DEFAULT)[address] [place] [address] 11198 MCHC (RBC) [Mass/Vol] 34 g/dL Normal 26-37 [facility] Comment on above: Performed By: #### 1 [id number], 6690168, 18815671, 3368710 ####[facility] (DEFAULT)[address] [place] [address] 62270 MCV (RBC) [Entitic vol] 82 fL Normal 81-100 [facility] Comment on above: Performed By: #### 1 [id number], 9070045, 83850169, 1625435 ####[facility] (DEFAULT)[address] [place] [address] 32923 Platelet 378 x10 Normal 138-427 [facility] Comment on above: Performed By: #### 1 [id number], 4267935, 77684277, 8506012 ####[facility] (DEFAULT)[address] [place] [address] 83108 Platelet mean volume (Bld) [Entitic vol] 8.6 fL Normal 6.3-10.2 [facility] Comment on above: Performed By: #### 1 [id number], 6542555, 00545830, 3443514 ####[facility] (DEFAULT)[address] [place] [address] RBC 4.88 x10 Normal 3.70-5.30 [facility] Comment on above: Performed By: #### 1 [id number], 0060510, 16569877, 8440841 ####[facility] (DEFAULT)[address] [place] [address] WBC 10.7 x10 High 3.5-10.5 [facility] Comment on above: Performed By: #### 1 [id number], 7364278, 54769653, 5507576 ####[facility] (DEFAULT)[address] [place] [address] 90674 CMP Standardon 08-11-2024 eGFR Non AA >60 Invalid Interpretation Code [facility] Comment on above: Performed By: #### 1 [id number], 5969759, 57438246, 3198000 ####[facility] (DEFAULT)[address] [place] [address] 12258 eGFR AA >60 Invalid Interpretation Code [facility] Comment on above: Performed By: #### 1 [id number], 2382074, 01373362, 2986496 ####[facility] (DEFAULT)[address] [place] [address] 22075 Albumin [Mass/Vol] 3.9 g/dL Normal 3.5-5.0 [facility] Comment on above: Performed By: #### 1 [id number], 3245743, 39716609, 1468380 ####[facility] (DEFAULT)[address] [place] [address] 85523 Albumin/Globulin [Mass ratio] 1.0 {ratio} Low 1.4-2.6 [facility] Comment on above: Performed By: #### 1 [id number], 3984573, 62740119, 7315271 ####[facility] (DEFAULT)[address] [place] [address] 53411 Alk Phos 77 IU/L Normal 32-91 [facility] Comment on above: Performed By: #### 1 [id number], 9077870, 04713759, 1750029 ####[facility] (DEFAULT)[address] [place] [address] 06589 ALT [Catalytic activity/Vol] 25.0 U/L Normal 14.0-54.0 [facility] Comment on above: Performed By: #### 1 [id number], 7312224, 06352540, 9888763 ####[facility] (DEFAULT)[address] [place] [address] 14612 Anion gap [Moles/Vol] 13.8 mmol/L Normal 5.0-19.0 [facility] Comment on above: Performed By: #### 1 [id number], 0811968, 20141136, 0385119 ####[facility] (DEFAULT)[address] [place] [address] 33224 AST [Catalytic activity/Vol] 21 U/L Normal 15-41 [facility] Comment on above: Performed By: #### 1 [id number], 3545481, 49846763, 5314028 ####[facility] (DEFAULT)[address] [place] [address] 09336 Bili Total 0.7 mg/dL Normal 0.3-1.2 [facility] Comment on above: Performed By: #### 1 [id number], 3493148, 31720021, 3800492 ####[facility] (DEFAULT)[address] [place] [address] 80518 Calcium [Mass/Vol] 9.2 mg/dL Normal 8.9-10.3 [facility] Comment on above: Performed By: #### 1 [id number], 0725690, 57491956, 2180448 ####[facility] (DEFAULT)[address] [place] [address] 99905 Chloride [Moles/Vol] 105 mmol/L Normal 101-111 [facility] Comment on above: Performed By: #### 1 [id number], 1224784, 31570323, 0030532 ####[facility] (DEFAULT)[address] [place] [address] 58592 CO2 [Moles/Vol] 21 mmol/L Normal 21-32 [facility] Comment on above: Performed By: #### 1 [id number], 7168447, 47367865, 3857801 ####[facility] (DEFAULT)[address] [place] [address] Creatinine [Mass/Vol] 0.55 mg/dL Low 0.60-1.30 [facility] Comment on above: Performed By: #### 1 [id number], 8301495, 41750027, 8148051 ####[facility] (DEFAULT)[address] [place] [address] 73647 Globulin (S) [Mass/Vol] 3.7 g/dL Normal 1.5-4.3 [facility] Comment on above: Performed By: #### 1 [id number], 4882803, 93244094, 7646597 ####[facility] (DEFAULT)[address] [place] [address] Glucose [Mass/Vol] 92.0 mg/dL Normal 74.0-118.0 [facility] Comment on above: Performed By: #### 1 [id number], 3141758, 23098317, 0618738 ####[facility] (DEFAULT)[address] [place] [address] Osmolality 270 mOsm/L Invalid Interpretation Code [facility] Comment on above: Performed By: #### 1 [id number], 7633475, 96062907, 9225311 ####[facility] (DEFAULT)[address] [place] [address] Potassium [Moles/Vol] 3.8 mmol/L Normal 3.6-5.1 [facility] Comment on above: Performed By: #### 1 [id number], 3377884, 26338158, 9044960 ####[facility] (DEFAULT)[address] [place] [address] 02937 Protein [Mass/Vol] 7.6 g/dL Normal 6.5-8.1 [facility] Comment on above: Performed By: #### 1 [id number], 6356255, 98260460, 8786389 ####[facility] (DEFAULT)[address] [place] [address] 52730 Sodium [Moles/Vol] 136.0 mmol/L Normal 136.0-144.0 [facility] Comment on above: Performed By: #### 1 [id number], 2076974, 49554250, 0717872 ####[facility] (DEFAULT)[address] [place] [address] 80696 Urea nitrogen [Mass/Vol] 8 mg/dL Normal 8-26 [facility] Comment on above: Performed By: #### 1 [id number], 0936982, 56974497, 4415775 ####[facility] (DEFAULT)[address] [place] [address] Urea nitrogen/Creatinine [Mass ratio] 14.5 mg/mg Normal 4.6-16.2 [facility] Comment on above: Performed By: #### 1 [id number], 8510369, 70311071, 5644029 ####[facility] (DEFAULT)[address] [place] [address] 76318 UA Fyhro5vt 08-11-2024 UA Bacteria 1+ Normal [facility] Comment on above: Order Comment: Urina lysis Microscopic order added on by [employer] Rules system. Performed By: #### 1 [id number], 4627136, 21874830 #### [facility] (DEFAULT) [address] [place] [address] 39950 UA RBC 0-2 Normal [facility] Comment on above: Order Comment: Urina lysis Microscopic order added on by [employer] system. Performed By: #### 1 [id number], 6418048, 85409595 #### [facility] (DEFAULT) [address] [place] [address] 79759 UA Squam Epi None Seen [facility] Comment on above: Order Comment: Urina lysis Microscopic order added on by [employer] system. Performed By: #### 1 [id number], 8755198, 06228742 #### [facility] (DEFAULT) [address] [place] [address] 12338 UA Urothelial Cells Moderate Abnormal None Seen [facility] Comment on above: Order Comment: Urina lysis Microscopic order added on by [employer] system. Performed By: #### 1 [id number], 3840232, 40733446 #### [facility] (DEFAULT) [address] [place] [address] UA WBC 0-2 [facility] Comment on above: Order Comment: Urina lysis Microscopic order added on by [employer] system. Performed By: #### 1 [id number], 2362331, 40102096 #### [facility] (DEFAULT) [address] [place] [address] UA w Culture if Ind Standard on 08-11-2024 Breakpoint UA [facility] Comment on above: Performed By: #### 1 [id number], 1454987, 26949614 #### [facility] (DEFAULT) [address] [place] [address] Color (U) Dark Yellow [facility] Comment on above: Performed By: #### 1 [id number], 0125042, 79017051 #### [facility] (DEFAULT) [address] [place] [address] Culture? Indicated Invalid Interpretation Code [facility] Comment on above: Result Comment: Resu lt created by rule GL_MAGR_ADD_UA_CULT Result created by rule GL_MAGR_ADD_UA_CULT Result created by rule GL_MAGR_ADD_UA_CULT Performed By: #### 1 [id number], 9228664, 72960382 #### [facility] (DEFAULT) [address] [place] [address] Glucose (U) [Mass/Vol] Negative [facility] Comment on above: Performed By: #### 1 [id number], 2978917, 71845576 #### [facility] (DEFAULT) [address] [place] [address] Ketones Ql (U) >=80 [facility] Comment on above: Performed By: #### 1 [id number], 6800704, 84119939 #### [facility] (DEFAULT) [address] [place] [address] Micro? Indicated Invalid Interpretation Code [facility] Comment on above: Result Comment: Resu lt created by rule GL_MAGR_ADD_UA_MICRO Performed By: #### 1 [id number], 8655764, 01664629 #### [facility] (DEFAULT) [address] [place] [address] 98887 UA Bilirubin SMALL Abnormal [facility] Comment on above: Performed By: #### 1 [id number], 0101485, 84910349 #### [facility] (DEFAULT) [address] [place] [address] 32888 UA Blood Negative Normal NEGATIVE [facility] Comment on above: Performed By: #### 1 [id number], 7654180, 77892255 #### [facility] (DEFAULT) [address] [place] [address] 05642 UA Clarity CLEAR Normal CLEAR [facility] Comment on above: Performed By: #### 1 [id number], 3041102, 40976218 #### [facility] (DEFAULT) [address] [place] [address] 11674 UA Leuk Est TRACE Abnormal NEGATIVE [facility] Comment on above: Performed By: #### 1 [id number], 9162593, 48393091 #### [facility] (DEFAULT) [address] [place] [address] 17800 UA Nitrite Negative Normal NEGATIVE [facility] Comment on above: Performed By: #### 1 [id number], 1313296, 16013098 #### [facility] (DEFAULT) [address] [place] [address] 81564 UA pH 7.0 Normal 5-8 [facility] Comment on above: Performed By: #### 1 [id number], 6923382, 84547350 #### [facility] (DEFAULT) [address] [place] [address] 58214 UA Protein 30 Abnormal NEGATIVE [facility] Comment on above: Performed By: #### 1 [id number], 4018009, 18931790 #### [facility] (DEFAULT) [address] [place] [address] 01567 UA Spec Grav 1.015 Normal 1.001-1.035 [facility] Comment on above: Performed By: #### 1 [id number], 7071802, 15284595 #### [facility] (DEFAULT) [address] [place] [address] UA Urobilinogen 4.0 mg/dL Abnormal 0.2-1.0 [facility] Comment on above: Performed By: #### 1 [id number], 1642448, 03779534 #### [facility] (DEFAULT) [address] [place] [address] Urine Source Clean Catch Normal [facility] Comment on above: Performed By: #### 1 [id number], 1256752, 27153064 #### [facility] (DEFAULT) [address] [place] [address] hCG Quantitativeon 5 hCG Quantitative 207794.0 mIU/mL High 0.0-0.6 [facility] Comment on above: Result Comment: Resu lt Confirmed by Dilution Post-Menopausal Reference Range is: 0.1-11.6 mIU/mL Performed By: #### 1 [id number], 6887013, 37781804, 5117321 ####[facility] (DEFAULT)[address] [place] [address] HCG ( test) Ql (U)o n 08-06-2024 Interpretation and review of laboratory results Abnormal [facility] Preg Test, Ur Positive Negative [facility] US OB TRANSVAGINALon 025 OB TRANSVAGINAL TITLE OF EXAM: OB Ultrasound: REASON FOR [...] report is generated using voice recognition reporting (8020select). On occasion [employer] erroneously drops words from the report or replaces the spoken word with similar sounding words. Please call with any questions/concerns regarding this report.* Dictated and transcribed 08/06/24/dpd This report has been electronically signed and approved by the interpreting radiologist. Normal Not Available Comment on above: Order Comment: US OB TRANSVAGINAL No LMP recorded. Urinalysis macro (dipstick) panel (U)on 08-06-2024 Bilirubin, UA Positive Negative - 4(70) +++ mg/dL [facility] Comment on above: small Blood, UA Positive Negative - 50 Villa/mcL [facility] Comment on above: Trace-intact Clarity, UA Clear [facility] Color, UA Yellow [facility] Glucose, UA Negative Negative - 1999(110) ++++ mg/dL [facility] Interpretation and review of laboratory results Abnormal [facility] Ketones, UA Positive Negative - 160(16) ++++ mg/dL [facility] Comment on above: 80mg/dL Leukocytes, UA Trace Negative - 500+++ Pierre/mcL [facility] Nitrite, UA Negative Negative - Positive [facility] pH, UA 6.5 5 - 9 [facility] Protein, UA Positive Negative - 2000(20) ++++ mg/dL [facility] Comment on above: 100mg/dL Spec Grav, UA 1.025 1 - 1.03 [facility] Urobilinogen, UA 1.0 0.2 - 12 mg/dL [facility] CBC WITH AUTO DIFFERENTIALon 08-03-2024 BASOPHILS ABSOLUTE COUNT (10*3/UL) BY AUTOMATED COUNT 0.1 10*3/uL Normal [facility] Comment on above: Performed By: #### N UM #### [facility] ([id number]) [address] [place] [address] 04377 BASOPHILS RELATIVE PERCENT BY AUTOMATED COUNT 0.7 % Normal [facility] Comment on above: Performed By: #### N UM #### [facility] ([id number]) [address] [place] [address] 32381 CELLAVISION DIFFERENTIAL TYPE AUTOMATED DIFFERENTIAL Normal [facility] Comment on above: Performed By: #### N UM #### [facility] ([id number]) [address] [place] [address] 47271 Eosinophils (Bld) [#/Vol] 0.0 10*3/uL Normal [facility] Comment on above: Performed By: #### N UM #### [facility] ([id number]) [address] [place] [address] 18751 EOSINOPHILS RELATIVE PERCENT BY AUTOMATED COUNT 0.2 % Normal [facility] Comment on above: Performed By: #### N UM #### [facility] ([id number]) [address] [place] [address] 23690 Erythrocyte distribution width (RBC) [Ratio] 14.2 % Normal 11.5-15 [facility] Comment on above: Performed By: #### N UM #### [facility] ([id number]) [address] [place] [address] 61902 Hematocrit (Bld) [Volume fraction] 40.0 % Normal 35-47 [facility] Comment on above: Performed By: #### N UM #### [facility] ([id number]) [address] [place] [address] 83972 Hemoglobin (Bld) [Mass/Vol] 13.4 g/dL Normal 11.7-15.5 [facility] Comment on above: Performed By: #### N UM #### [facility] ([id number]) [address] [place] [address] 77280 LYMPHOCYTES ABSOLUTE COUNT (10*3/UL) BY AUTOMATED COUNT 2.8 10*3/uL Normal [facility] Comment on above: Performed By: #### N UM #### [facility] ([id number]) [address] [place] [address] 28731 LYMPHOCYTES RELATIVE PERCENT BY AUTOMATED COUNT 23.8 % Normal [facility] Comment on above: Performed By: #### N UM #### [facility] ([id number]) [address] [place] [address] 14858 MCH (RBC) [Entitic mass] 27.5 pg Normal 27-34 [facility] Comment on above: Performed By: #### N UM #### [facility] ([id number]) [address] [place] [address] 88311 MCHC (RBC) [Mass/Vol] 33.5 g/dL Normal 32-36 [facility] Comment on above: Performed By: #### N UM #### [facility] ([id number]) [address] [place] [address] 32526 MCV (RBC) [Entitic vol] 82 fL Normal 80-100 [facility] Comment on above: Performed By: #### N UM #### [facility] ([id number]) [address] [place] [address] 37509 MONOCYTES ABSOLUTE COUNT (10*3/UL) BY AUTOMATED COUNT 0.9 10*3/uL Normal [facility] Comment on above: Performed By: #### N UM #### [facility] ([id number]) [address] [place] [address] 53876 MONOCYTES RELATIVE PERCENT BY AUTOMATED COUNT 7.7 % Normal [facility] Comment on above: Performed By: #### N UM #### [facility] ([id number]) [address] [place] [address] 08221 NEUTROPHILS ABSOLUTE COUNT BY AUTOMATED COUNT 8.0 10*3/uL Normal [facility] Comment on above: Performed By: #### N UM #### [facility] ([id number]) [address] [place] [address] 68161 NEUTROPHILS RELATIVE PERCENT BY AUTOMATED COUNT 67.6 % Normal [facility] Comment on above: Performed By: #### N UM #### [facility] ([id number]) [address] [place] [address] 48943 Platelet mean volume (Bld) [Entitic vol] 9.1 fL Normal 7-12 [facility] Comment on above: Performed By: #### N UM #### [facility] ([id number]) [address] [place] [address] 73271 Platelets (Bld) [#/Vol] 400 10*3/uL Normal 150-450 [facility] Comment on above: Performed By: #### N UM #### [facility] ([id number]) [address] [place] [address] 41597 RBC COUNT 4.88 X10E12/L Normal 3.8-5.2 [facility] Comment on above: Performed By: #### N UM #### [facility] ([id number]) [address] [place] [address] 11687 WBC (Bld) [#/Vol] 11.8 10*3/uL High 4-11 [facility] Comment on above: Performed By: #### N UM #### [facility] ([id number]) [address] [place] [address] [id number] COMPREHENSIVE METABOLIC PANE Alex 08-03-2024 Albumin [Mass/Vol] 4.2 g/dL Normal 3.2-5.3 [facility] Comment on above: Performed By: #### N UM #### [facility] ([id number]) [address] [place] [address] 94773 ALP [Catalytic activity/Vol] 90 U/L Normal 39-130 [facility] Comment on above: Performed By: #### N UM #### [facility] ([id number]) [address] [place] [address] 61142 ALT [Catalytic activity/Vol] 16 U/L Normal <=31 [facility] Comment on above: Result Comment: R-Sp ecimen hemolyzed, results increased Performed By: #### N UM #### [facility] ([id number]) [address] [place] [address] 35066 Anion gap [Moles/Vol] 9 mmol/L Normal 5-15 [facility] Comment on above: Performed By: #### N UM #### [facility] ([id number]) [address] [place] [address] 70855 AST [Catalytic activity/Vol] 27 U/L Normal <=41 [facility] Comment on above: Result Comment: R-Sp ecimen hemolyzed, results increased Performed By: #### N UM #### [facility] ([id number]) [address] [place] [address] 96846 Bilirubin [Mass/Vol] 1.2 mg/dL Normal 0.3-1.2 [facility] Comment on above: Result Comment: R-Re sults questionable due to hemolysis Performed By: #### N UM #### [facility] ([id number]) [address] [place] [address] [place] [address] Calcium [Mass/Vol] 9.2 mg/dL Normal 8.5-10.5 [facility] Comment on above: Performed By: #### N UM #### [facility] ([id number]) [address] [place] [address] 81538 Chloride [Moles/Vol] 103 mmol/L Normal 98-109 [facility] Comment on above: Performed By: #### N UM #### [facility] ([id number]) [address] [place] [address] 37873 CO2 [Moles/Vol] 22 mmol/L Normal 22-32 [facility] Comment on above: Performed By: #### N UM #### [facility] ([id number]) [address] [place] [address] 23036 Creatinine [Mass/Vol] 0.70 mg/dL Normal 0.40-1.00 [facility] Comment on above: Result Comment: METH OD TRACEABLE TO IDMS STANDARD Performed By: #### N UM #### [facility] ([id number]) [address] [place] [address] 61752 EGFR (CKD-EPI) NON-RACE DEPENDENT >^90 Normal >=60 [facility] Comment on above: Result Comment: Repo rted eGFR is based on the CKD-EPI 2020 equation that does not use a race coefficient. Performed By: #### N UM #### [facility] ([id number]) [address] [place] [address] 47106 Glucose [Mass/Vol] 86 mg/dL Normal 65-99 [facility] Comment on above: Performed By: #### N UM #### [facility] ([id number]) [address] [place] [address] 74315 Potassium [Moles/Vol] 4.2 mmol/L Normal 3.5-5.0 [facility] Comment on above: Result Comment: R-Sp ecimen hemolyzed, results increased Performed By: #### N UM #### [facility] ([id number]) [address] [place] [address] 68641 Protein [Mass/Vol] 8.1 g/dL High 6.0-8.0 [facility] Comment on above: Performed By: #### N UM #### [facility] ([id number]) [address] [place] [address] 60745 Sodium [Moles/Vol] 134 mmol/L Normal 134-146 [facility] Comment on above: Performed By: #### N UM #### [facility] ([id number]) [address] [place] [address] 23221 Urea nitrogen [Mass/Vol] 9 mg/dL Normal 5-23 [facility] Comment on above: Performed By: #### N UM #### [facility] ([id number]) [address] [place] [address] 88999 ER EXTRA URINEon 08-03-2024 ER EXTRA URINE ERU ER EXTRA URINE Cancelled Normal [facility] Comment on above: Order Comment: A ext ra urine specimen no testing is needed MAGNESIUMon 08-03-2024 Magnesium [Mass/Vol] 2.1 mg/dL Normal 1.8-2.6 [facility] Comment on above: Result Comment: R-Sp ecimen hemolyzed, results increased Performed By: #### N UM #### [facility] ([id number]) [address] [place] [address] 43416 POCT NURSING URINE MACROSCOP IC UAon 08-03-2024 BILIRUBIN NEHA Small Abnormal Negative [facility] Comment on above: Performed By: #### N UM #### [facility] ([id number]) [address] [place] [address] 05743 BLOOD/HGB NEHA Small Abnormal Negative [facility] Comment on above: Performed By: #### N UM #### [facility] ([id number]) [address] [place] [address] 79454 GLUCOSE NEHA Negative Normal Negative [facility] Comment on above: Performed By: #### N UM #### [facility] ([id number]) [address] [place] [address] 19654 KETONES NEHA 15 mg/dL Abnormal Negative [facility] Comment on above: Performed By: #### N UM #### [facility] ([id number]) [address] [place] [address] 46612 LEUKOCYTE ESTERASE NEHA Negative Normal Negative [facility] Comment on above: Performed By: #### N UM #### [facility] ([id number]) [address] [place] [address] 76991 NITRITE NEHA Negative Normal Negative [facility] Comment on above: Performed By: #### N UM #### [facility] ([id number]) [address] [place] [address] 91528 PH NEHA 7.0 Normal 5.0, 6.0, 6.5, 7.0, 7.5, 8.0, 8.5, 5.5 [facility] Comment on above: Performed By: #### N UM #### [facility] ([id number]) [address] [place] [address] 72343 PROTEIN NEHA 100 mg/dL Abnormal Negative [facility] Comment on above: Performed By: #### N UM #### [facility] ([id number]) [address] [place] [address] 36257 SPECIFIC GRAVITY NEHA 1.025 Abnormal (none) [facility] Comment on above: Performed By: #### N UM #### [facility] ([id number]) [address] [place] [address] 07963 UROBILINOGEN NEHA 1.0 E.U./dL Normal 0.2 E.U./dL , 1.0 E.U./dL [facility] Comment on above: Performed By: #### N UM #### [facility] ([id number]) [address] [place] [address] 11472 POCT , URINE (NUCG) on 08-03-2024 Beta HCG ( test) Ql (U) Positive Abnormal Negative [facility] Comment on above: Performed By: #### N UM #### [facility] ([id number]) [address] [place] [address] 32831 US PREG LESS THAN 14 WKS SIN GLEon 08-03-2024 US PREG LESS THAN 14 WKS SINGLE US PREG LESS THAN 14 WKS SINGLE US PREG LESS THAN 14 WKS SINGLE CLINICAL INDICATION: vomiting FINDINGS: limited transabdominal ultrasound of the pelvis. UTERUS AND GESTATIONAL SAC: Intrauterine gestation: Single. Gestational sac: Intrauterine. Yolk sac: 0.3 cm [place]-rump length (CRL): 1.6 cm heart motion: 174 [...] by Brett Gutierrez on 08/03/2024 12:52 PM Normal [facility] COMPREHENSIVE METABOLIC PANE Alex 07-20-2024 Albumin [Mass/Vol] 4.2 g/dL Normal 3.2-5.3 [facility] Comment on above: Performed By: #### C MP, 3040-3, 60019-6 ####[facility] ([id number])[address] [place] [address] 41729 ALP [Catalytic activity/Vol] 95 U/L Normal 39-130 [facility] Comment on above: Performed By: #### Shakeel GANNON, 3039-06, ####[facility] ([id number])[address] [place] [address], [place] [address] ALT [Catalytic activity/Vol] 19 U/L Normal 0-31 [facility] Comment on above: Performed By: #### Shakeel GANNON, 3039-06, ####[facility] ([id number])[address] [place] [address], [place] [address] Anion gap [Moles/Vol] 11 mmol/L Normal 5-15 [facility] Comment on above: Performed By: #### Shakeel GANNON, 3039-06, ####[facility] ([id number])[address] [place] [address], [place] [address] AST [Catalytic activity/Vol] 19 U/L Normal 0-41 [facility] Comment on above: Performed By: #### Shakeel GANNON, 3039-06, ####[facility] ([id number])[address] [place] [address], [place] [address] Bilirubin [Mass/Vol] 0.5 mg/dL Normal 0.3-1.2 [facility] Comment on above: Performed By: #### Shakeel GANNON, 3039-06, ####[facility] ([id number])[address] [place] [address] [place] [address] Calcium [Mass/Vol] 9.2 mg/dL Normal 8.5-10.5 [facility] Comment on above: Performed By: #### Shakeel GANNON, 3039-06, ####[facility] ([id number])[address] [place] [address], [place] [address] Chloride [Moles/Vol] 104 mmol/L Normal 98-109 [facility] Comment on above: Performed By: #### Shakeel GANNON, 3039-06, ####[facility] ([id number])[address] [place] [address] 43195 CO2 [Moles/Vol] 20 mmol/L Low 22-32 [facility] Comment on above: Performed By: #### C TERESSA, 3039-06, ####[facility] ([id number])[address] [place] [address] 01449 Creatinine [Mass/Vol] 0.68 mg/dL Normal 0.40-1.00 [facility] Comment on above: Result Comment: METH OD TRACEABLE TO IDMS STANDARD Performed By: #### C TERESSA, 3039-06, ####[facility] ([id number])[address] [place] [address] 23821 eGFR (CKD-EPI) NON-RACE DEPENDENT >90 Normal >59 [facility] Comment on above: Result Comment: Reported eGFR is based on the CKD-EPI 2020 equation that does not use a race coefficient. Performed By: #### C TERESSA, 3039-06, ####[facility] ([id number])[address] [place] [address] 41903 Glucose [Mass/Vol] 81 mg/dL Normal 65-99 [facility] Comment on above: Performed By: #### Shakeel GANNON, 3039-06, ####[facility] ([id number])[address] [place] [address] 19605 Potassium [Moles/Vol] 4.7 mmol/L Normal 3.5-5.0 [facility] Comment on above: Performed By: #### Shakeel GANNON, 3039-06, ####[facility] ([id number])[address] [place] [address] [place] [address] Protein [Mass/Vol] 7.9 g/dL Normal 6.0-8.0 [facility] Comment on above: Performed By: #### C TERESSA, 3040-3, ####[facility] ([id number])[address] [place] [address] 25544 Sodium [Moles/Vol] 135 mmol/L Normal 134-146 [facility] Comment on above: Performed By: #### C MP, 3040-3, 52520-1 ####[facility] ([id number])[address] [place] [address] 53156 Urea nitrogen [Mass/Vol] 10 mg/dL Normal 5-23 [facility] Comment on above: Performed By: #### C MP, 0-3, ####[facility] ([id number])[address] [place] [address] 64358 HCG ( test) Ql (U)o n 07-20-2024 Beta HCG ( test) Ql (U) Positive Abnormal NEG [facility] Comment on above: Performed By: #### N UM #### [facility] ([id number]) [address] [place] [address] 46890 HCG.beta subunit IA 3rd IS Q non 07-20-2024 [place] [address] m[IU]/mL Normal P [facility] Comment on above: Result Comment: NEW REFERENCE RANGE WEEKS (SINCE LMP) [...] necessarily diagnostic for trophoblastic or nontrophoblastic neoplasms. Performed By: #### C TERESSA, 3040-3, 43071-8 ####[facility] ([id number])[address] [place] [address] 51885 LIPASEon 07-20-2024 Lipase [Catalytic activity/Vol] 31 U/L Normal 17-40 [facility] Comment on above: Performed By: #### C TERESSA, 3040-3, ####[facility] ([id number])[address] [place] [address] 07884 URINE CULTUREon 07-20-2024 Bacteria identified Cx Nom (U) CULTURE RESULTS >100,000 ORGANISMS/ML NORMAL UROGENITAL JONNY Normal [facility] Comment on above: Performed By: #### N UM #### [facility] ([id number]) [address] [place] [address] 96366 URN MACROSCOPIC NURon 2024 BILIRUBIN NEHA Negative Normal NEG [facility] Comment on above: Performed By: #### N UM #### [facility] ([id number]) [address] [place] [address] 82908 BLOOD/HGB NEHA Negative Normal NEG [facility] Comment on above: Performed By: #### N UM #### [facility] ([id number]) [address] [place] [address] 13154 GLUCOSE NEHA Negative Normal NEG [facility] Comment on above: Performed By: #### N UM #### [facility] ([id number]) [address] [place] [address] 61561 KETONES NEHA 15 mg/dL Abnormal NEG [facility] Comment on above: Performed By: #### N UM #### [facility] ([id number]) [address] [place] [address] 56569 LEUKOCYTE ESTERASE NEHA Negative Normal NEG [facility] Comment on above: Performed By: #### N UM #### [facility] ([id number]) [address] [place] [address] 45375 NITRITE NEHA Negative Normal NEG [facility] Comment on above: Performed By: #### N UM #### [facility] ([id number]) [address] [place] [address] 05048 PH NEHA 7.0 Normal 5.0-8.5 [facility] Comment on above: Performed By: #### N UM #### [facility] ([id number]) [address] [place] [address] 86005 PROTEIN NEHA Negative Normal NEG [facility] Comment on above: Performed By: #### N UM #### [facility] ([id number]) [address] [place] [address] 20797 SPECIFIC GRAVITY NEHA 1.020 Normal 1.003-1.035 [facility] Comment on above: Performed By: #### N UM #### [facility] ([id number]) [address] [place] [address] 39018 UROBILINOGEN NEHA 0.2 eu/dL Normal <1.1 [facility] Comment on above: Performed By: #### N UM #### [facility] ([id number]) [address] [place] [address] 97606 TBH PREG QUANT HCGon 07-03- 025 HCG QUANTITATIVE 59 mIU/mL [facility] Comment on above: 5-50 0.2-1 WEEK 50-500 1-2 WEEKS 100-5,000 2-3 WEEKS 500-10,000 3-4 WEEKS 1,000-50,000 4-5 WEEKS 10,000-100,000 5-6 WEEKS 15,000-200,000 6-8 WEEKS 10,000-100,000 2-3 MONTHS [facility] TBH PREG QUANT HCGon 07-01- 025 HCG QUANTITATIVE 22 mIU/mL [facility] Comment on above: 5-50 0.2-1 WEEK 50-500 1-2 WEEKS 100-5,000 2-3 WEEKS 500-10,000 3-4 WEEKS 1,000-50,000 4-5 WEEKS 10,000-100,000 5-6 WEEKS 15,000-200,000 6-8 WEEKS 10,000-100,000 2-3 MONTHS [facility] Coding Summaryon 06-11-2024 Coding Summary HTMLBase 64 YmgdhzznANo9jCf+PGhlY WQ+XJ4HNMAkM35wiTAxjE 6nS4EBRTqEZwveZHTEVSb TOqZrjmVgSE4daHTuSANq IC8+AK4fPNRdKkxrlSGdu 2G4fTS5E32khz2fNPfclN Q7YDDmEeLpqfpjp8nsfVm 6IDcuNmluOyBt DXTyqK49ZZZ7hB73Qh69l GNnwPLjq1xojIo3UgMjFA WyRMR1cYsrWWndc9JjMKL aS07ygGWnc9B5 OWQmjRrvwZBgFzSddYY2f K9uTDhhkaznf5yduiksPr s4gr86tKSov8Q1rPL9G1V vmuB4TMWtnZJp WdooyIGGcL3kohkwm0exh csbZzUsIWVnNQl7FBa1YM EerAqyXwDyAH94LWV0AOP uzmEiE1JpMJSb yTztSiP6e2D1Yw8DN5JNX tifF4WWKFIQPDkzcIW+PC 05fo17J5EbDzmmPig5XOF kLHW1aQZ9wL5d YRKhZUqdx6O6rIK3W9Cjq iVakd4fz4saOQEmHNrcL0 0xbIQte7J0YTTfbFX3QVX cgClqMjDedP82 Oyc+ZBBreTlqw3PhRupzh 6ljy9hovRd8MoahMOUfwu MfxSwgKDM5e2NzDk8ySKE ktHV5lOE7bJ9k FnYyUmW8ZDwrB177YkPlq KJrYnsgP60nE9HwwET+PH KfPpt3MITxgYokOZ9gD2E hZGRpbmctbGVm uYnwWM4vAOMcgmykAGDth S1sOVXdB3w0NaNlBpK5ZG hkY6ErUYOwsyayBy63wB1 xEsXeIaJ2XJej X5SzriL7NOKqyDFwBGhgL LN5L93sm7Q8ZVCgDWBjFL K5xTH6cK8nbSuzavaxpFJ mdDsgdmVydGlj QQltZLsnG949URVpwTpbL kNvZGluZyBEYXRlOiAgMD MvMDYvMjAyNTwvdGQ+PHR oXSV4qRilLETs tVQuNKafAb2jyVypfHugZ B7kJNUrvromRVMpiW8tMH FggCQspYvqKR8wJGAnmwr mf610TzDcFWL4 NEQqsEJoE8AvsN0dObNmJ TTpKQBkN2JbdEUhVQosM5 54ICveBnD2GVHdirYvJ6Z sLWFsaWduOiB0 f2Y6Vo2Cr2MnpgmtE3Lhr OJlRpApJbojDQe0D6AbUc wvdHI+MS26BYEwPP87PKr 3OXP9fEkdOFdn DRKvC8PljM7zUhYyZPFaL GRkOyc+PHRhYmxlIHdpZH RoPScxMDAlJyBzdHlsZT0 uDq3tFXByHNIb gIooiARxCeGmx1wvWNZfV ZwkRE6seIeqP1VqsEE5GJ Ynt5i2Ql11K07rJ9HeoMH +ZORraLK8hCI2 hX6eRxYfPbT7JEohN518C tHciAUgJwdzt9eja3kyqK x3AjL7ECSxybXlwEqtOAM 9u2UiOa33T74t IHdpZHRoPSIxNSUiIHZhb Omehx0bvP5pAv8+PGNvbC I3wQK5dT5lQaEwXfD2MIj rD294BkGsrUTw Sfiaq8ocx4buoSr1QbUtV XJjbfNxcMiqLHY4m2JvAl 51Y7QitPqpp3ApPns4vv0 0bWVob7Z5fUR3 S6FqVXQamgqbbJRskHwdT E4jIKYlzyhaHIOytL9nSU UlH3n0PwJhOuZ5UDijW8T dojI4HVMuxKMr WXRvaEXNoH8gurjjh8wvs iaoOlOeWNYiCIr2KLp3VN GycRyhKvVkKBA4LkW1PLP 1rHRplH7lmQsn tohmlO3bNqm+JPW9cIAuw OEEVQ3aYnsrbDJ+PHRkIH P9gEtwVMvcZVSfrV0fTNG iM0k7HjExTrE9 YQfjS0NbglO9ZEFpbMGsA ZUuxBUBzO0mtbwcp2wrhs vuLcIlBWDhOWe0NBl8DTW saWduOiBsZWZ0 OkG5IAY9mPCseR0jjZfzi sxtvQ4gZvy+QmlydGggRG D0JWn8V6ZfZpa6FJPvsGc qSM2dtFUaEDod Gx3vvOhltMpoAW7cTKNzk wljj875QiDfb1kbZLXvsC TjUSwwDHH0R84ry5H8LWC wIYQbGIO7jYM6 rL7tdQjdropoyXGljJbpd eLfpIqsILrbLScmI371ZK JskYugNrEjNBy5D5WhCeh 8YWBucIbqVO9v lEArTNvqVu0zwKhcxGwkQ X8lSOJmrrfcr561KxTcg8 moSDOyaQDsWWduCNP7A47 kh3C5KLSsBLOl ZNR3rKD8zA1tzRizmpfbx GVmdDsgdmVydGljYWwtYW sqC789IBLhjUamOcNdzRt 9N6GpMht0ADCn vGfuTO5ixUHgCGhgWe4tw AsxzHofAR5sMVMjpjgfy6 67CmXtt8lmDZRddAVfTUb fPMG4W96ep8G5 LUGxAEFiVVP7gUP4gD3hk GlnbjogbGVmdDsgdmVydG baQVnjYIoaG062AKKjrNk nPlBhdGllbnQg TTbtYFl8D9DzPyrzoKT+P X87RDQzLX89uTCmoAFen2 opmKm6VeKiXJAxXYG2tHr zFBysx6DpEWSi J62zgHXox2F3BPFjjTnlp HXvHzNakSG9cZ0dKLqhcy rpm5wlqsmiKamqw7folm6 6hB10M41zOSje ZHRoPSIzMCUiIHZhbGlnb i7nsQ8fBa2+TZNpjKF8nK D9xO5zVCVwAfY0GQlvQ90 9InRvcCIvPjxj i8jco1ilpIh0FvX2RCIbr cWsaDhkZMA3d0UiWa25R8 9sIHdpZHRoPSIyMCUiIHZ tqEaisi1tyW6d Ii8+OCZbgSD5aVS9yL3xX sJtEsM3EYgyL172OkPmbE NlWghjX96vS7MwpXH+PHR jOza5TBFkcCkq UZ6cuQXqTOtlKg9rXBU1L rQsQeIiSWauZ3DzENPipx zffaulpDC6YPTrRVGvzG9 7Vn4irMaiLXXt jMAIfH0lkyrdo6atkvgnB wSbGPIwFJq4KMr2QNOvrG frTbGjQWB8TyG2NPY4bOJ arE7ydLycjrfo hC8aZ2QmHKBqtftkUt15x B9kBlXiEoK5LLzqMmm+R0 kQSoAEWNtmC2fFEUOZQVc AMZ2ESZvgiQI+ SVYrXJI1hMglCVdiBFWqs G9uLKYvM7s6AxYtSqH3QS chC5VrTEMabnngTr39tW2 bKjBiYqM2MDlf S3WpngF7YUVdnIBcQFgxY BH9C23em4R8GOYrCVImEI G2zSG1mZ7wlCwuuxpzlOS mdDsgdmVydGlj AWdrXFloM880ICGqnZgkY hS5GzWmAtJsRRH1S7WmYq z9ZVKcmWzuXP8fzLMdFAs fQb9zkMqamJyy PW0eAJGowepnXUBlpT7rA YAyyQQptTwmXL9mTJJnxz rzd046FwBsEKT0QLWaxFT iZ4BegJ8vTeZy DRWyEWOsT0VrbBXePCffP 373QKycRdH1OCFxcyJvB4 RnHYIxhDmlKdS4t4J9Zs8 yMiBZZWFyczwv dGQ+SUMyABN4iHiuJHoaI ZDzkI9xLKIaG0u4GrXvAj F9AQcgR7ExFPWtefpvZj3 8qF6oOwYtAcF2 KEoyX4RjorM6MZIzaWXqG RjyQTP3F46rc2L9EKBiUC IjPCF8bIY9fI2crAeisde gbGVmdDsgdmVy oHheUJfhOEouO760ZGHtm DsnPkZFTUFMRTwvdGQ+PH RgPLH8aMueGTyxCOEktV0 iEUJjV9r5DtSh GeC6ODgeV0BqSJAbstadS e04dB5nVkIeThP0RUehE3 PbgaJ3WVJusLGlIDozUSO 4D27ti9U1YTOk HLAiXGV7zTM6nL3yhZmhx jogbGVmdDsgdmVydGljYW bvBTwpO294UKOtmZbiAxH dMQEsTB7yvQuo dGQ+XJ67uc43M2ZhDxlyQ sy1NKRmWYK6hOZ6gK4oAG NpCCylg5L3yTJ4E3VhcfN fik9sz0qjALYu ZCefG55gmRDyb8T8AKYqg VL5WWMpjEnnOsJzwE78Xy c+XXBqrZemq7PrNfrrq6z tz7mluJh7WbDm DGWrhbNkbPkqEIT2b2VfE a08J45wKDiyDKXeGVSvVG ZwIOGvgGnxzo2dnR3dDw2 +DQGzyFA4fTD8 vM6yJgQfQkU5QJtsJ052Z qQecEGtVfaui5roq8bylV n1ZbOdLGIdkvVvcVckMOX 6b9LgXj65D2Ui gVxjw3DpEny9dr38kDHcj 1M0wAY0I1IcMXSgnncgvQ VdwHlaRU8rVBOygpdjXUB hdE4zLJHdY2y2 MmEfXwZ3NKdcF9VvrlG9S JJtvWIlENRuiUVPiJ5xea bcr7rhsctkQoNzISAwUPq 8CFq6DGZkyMgw WoSlDPO2XdK1NNA8bGAbr L3lgFatbhzdzL6gVyn+UG x9e1yerNNpKQ9zcDW5QH3 1RX78ePLmn4R2 uOC3H7PzOIVqowhsvxzwr DD4JSMqHPUltB93Mo3ksU gvMc0kWWPxJZE2ICQpvHD aI4YhnI1sXiIy LIGpXXHfI9PjmDVqRDhnE 350VDtuZxA3KCTnciOyB7 GmTULxmGyeXrF5t4G5Nd9 IJD45EP00AF16 wVUpw5G8vBZ5A3IaVLNec yzxajtqbKK2RSCyFIFesK 71Vh4eoTkoCi4nHPEaEHW 0PKDswRInN4Ws iU8oQaHhCMXrGZMvC6Hcv KQdKFtwY922XUllQkI8AJ CnffOoR8DeNPQjbUhtHzX 4u5R9Bm8LRa84 RP79CZ65uNFuj2C1gDJ3C 3JuXUIrtbwqqfkfgTG0HV YgLKQciS33Mm3loEdgMm9 tRFYrKBB2IAEz wCKkX5KylQ1sMfJoPYRxC PZqM7BbsLVyYBggS013TN qjGcV3PAKandGkA4CoGXW gpNmmEcX4n1G6 Ed0IEVapwfe6T9YgCjoui HI+UV37QODhFV60bOZfgC Cgz4vnpBh4ZfRqDJTeECM 7gZmoNBvll4Oo ZXI (more content not included)... Normal [facility] .Auto Diff 1on 06-07-2024 Auto [place] % 6 % Normal -12 [facility] Comment on above: Performed By: #### 1 [id number], [id number], [id number], [id number], [id number], [id number] ####[facility] (DEFAULT)[address] [place] [address] Baso Abs# 0.0 x10 Normal 0.0-0.2 [facility] Comment on above: Performed By: #### 1 [id number], [id number], 4943231, [id number], [id number], [id number] ####[facility] (DEFAULT)[address] [place] [address] Basophils/100 WBC (Bld) 0.6 % Normal 0.2-2.0 [facility] Comment on above: Performed By: #### 1 [id number], [id number], 4312302, 00226838, [id number], [id number] ####[facility] (DEFAULT)[address] [place] [address] Eos Abs# 0.1 x10 Normal 0.0-0.4 [facility] Comment on above: Performed By: #### 1 [id number], [id number], 8366322, 57867902, [id number], [id number] ####[facility] (DEFAULT)[address] [place] [address] Eosinophils/100 WBC (Bld) 0.8 % Low 0.9-4.0 [facility] Comment on above: Performed By: #### 1 [id number], [id number], 0887133, 25782272, [id number], 0722101 ####[facility] (DEFAULT)[address] [place] [address] Lymph Abs# 2.9 x10 Normal 1.3-2.9 [facility] Comment on above: Performed By: #### 1 [id number], [id number], 1785058, 53443711, [id number], 9704628 ####[facility] (DEFAULT)[address] [place] [address] Lymphocytes/100 WBC (Bld) 36 % Normal 14-48 [facility] Comment on above: Performed By: #### 1 [id number], [id number], 7737783, 78340743, [id number], 3739436 ####[facility] (DEFAULT)[address] [place] [address] [place] Abs# 0.5 x10 Normal 0.0-0.8 [facility] Comment on above: Performed By: #### 1 [id number], [id number], 1993247, 01448035, 8255430629, 1234583 ####[facility] (DEFAULT)[address] [place] [address] Neut Abs# 4.4 x10 Normal 1.5-9.2 [facility] Comment on above: Performed By: #### 1 [id number], [id number], 6069527, 44578711, 3556860203, 9193757 ####[facility] (DEFAULT)[address] [place] [address] Neutrophils/100 WBC (Bld) 56 % Normal 44-88 [facility] Comment on above: Performed By: #### 1 [id number], 9165092879, 9817037, 36118805, [id number], 5892567 ####[facility] (DEFAULT)[address] [place] [address] CBC w/ Auto Diffon 5 Erythrocyte distribution width (RBC) [Ratio] 14.5 % Normal 11.5-15.0 [facility] Comment on above: Performed By: #### 1 [id number], [id number], 6961463, 14448704, [id number], 4764951 ####[facility] (DEFAULT)[address] [place] [address] Hematocrit (Bld) [Volume fraction] 37.2 % Normal 33.7-40.4 [facility] Comment on above: Performed By: #### 1 [id number], [id number], 2694296, 52864152, 6784776510, 9499635 ####[facility] (DEFAULT)[address] [place] [address] Hemoglobin (Bld) [Mass/Vol] 12.3 g/dL Normal 11.3-15.9 [facility] Comment on above: Performed By: #### 1 [id number], [id number], 7826842, 85790578, [id number], 1099807 ####[facility] (DEFAULT)[address] [place] [address] Man Diff? Auto Invalid Interpretation Code [facility] Comment on above: Performed By: #### 1 [id number], [id number], 2165495, 35646961, 6260029127, 0341291 ####[facility] (DEFAULT)[address] [place] [address] MCH (RBC) [Entitic mass] 27 pg Normal 24-34 [facility] Comment on above: Performed By: #### 1 [id number], [id number], 5485769, 07538620, [id number], 0051668 ####[facility] (DEFAULT)[address] [place] [address] MCHC (RBC) [Mass/Vol] 33 g/dL Normal 26-37 [facility] Comment on above: Performed By: #### 1 [id number], [id number], 1430478, 64111892, 4425999343, 4990061 ####[facility] (DEFAULT)[address] [place] [address] MCV (RBC) [Entitic vol] 82 fL Normal 81-100 [facility] Comment on above: Performed By: #### 1 [id number], [id number], [id number], [id number], [id number], [id number] ####[facility] (DEFAULT)[address] [place] [address] 74250 Platelet 368 x10 Normal 138-427 [facility] Comment on above: Performed By: #### 1 [id number], [id number], 6166707, 57598637, [id number], [id number] ####[facility] (DEFAULT)[address] [place] [address] 59348 Platelet mean volume (Bld) [Entitic vol] 8.6 fL Normal 6.3-10.2 [facility] Comment on above: Performed By: #### 1 [id number], [id number], 3055812, 03183595, [id number], [id number] ####[facility] (DEFAULT)[address] [place] [address] 37631 RBC 4.51 x10 Normal 3.70-5.30 [facility] Comment on above: Performed By: #### 1 [id number], [id number], 3376203, 07776668, [id number], [id number] ####[facility] (DEFAULT)[address] [place] [address] 92595 WBC 7.8 x10 Normal 3.5-10.5 [facility] Comment on above: Performed By: #### 1 [id number], [id number], 1348247, 08366687, [id number], 8391247 ####[facility] (DEFAULT)[address] [place] [address] 30156 CMP Standardon 06-07-2024 eGFR Non AA >60 Invalid Interpretation Code [facility] Comment on above: Performed By: #### 1 [id number], [id number], 6159653, 10332450, [id number], [id number] ####[facility] (DEFAULT)[address] [place] [address] eGFR AA >60 Invalid Interpretation Code [facility] Comment on above: Performed By: #### 1 [id number], [id number], 1038413, 90098844, 1394999488, 7395246 ####[facility] (DEFAULT)[address] [place] [address] 32798 Albumin [Mass/Vol] 3.8 g/dL Normal 3.5-5.0 [facility] Comment on above: Performed By: #### 1 [id number], [id number], 0687056, 70747530, [id number], 4950921 ####[facility] (DEFAULT)[address] [place] [address] 97315 Albumin/Globulin [Mass ratio] 1.1 {ratio} Low 1.4-2.6 [facility] Comment on above: Performed By: #### 1 [id number], [id number], 0800420, 12225773, [id number], 1630255 ####[facility] (DEFAULT)[address] [place] [address] 49188 Alk Phos 79 IU/L Normal 32-91 [facility] Comment on above: Performed By: #### 1 [id number], [id number], 8793686, 33927676, [id number], 4872103 ####[facility] (DEFAULT)[address] [place] [address] 93566 ALT [Catalytic activity/Vol] 21.0 U/L Normal 14.0-54.0 [facility] Comment on above: Performed By: #### 1 [id number], [id number], 6371555, 39226885, [id number], 3231541 ####[facility] (DEFAULT)[address] [place] [address] 06228 Anion gap [Moles/Vol] 3.6 mmol/L Low 5.0-19.0 [facility] Comment on above: Performed By: #### 1 [id number], [id number], 2607535, 40473185, 5090105834, 1982432 ####[facility] (DEFAULT)[address] [place] [address] 01716 AST [Catalytic activity/Vol] 18 U/L Normal 15-41 [facility] Comment on above: Performed By: #### 1 [id number], [id number], 3374222, 61551910, [id number], 3898276 ####[facility] (DEFAULT)[address] [place] [address] 11626 Bili Total 0.5 mg/dL Normal 0.3-1.2 [facility] Comment on above: Performed By: #### 1 [id number], [id number], 2077016, 53001530, 9168561978, 6266512 ####[facility] (DEFAULT)[address] [place] [address] 04602 Calcium [Mass/Vol] 8.2 mg/dL Low 8.9-10.3 [facility] Comment on above: Performed By: #### 1 [id number], [id number], 8053673, 58700060, 0146935439, 3364864 ####[facility] (DEFAULT)[address] [place] [address] 60464 Chloride [Moles/Vol] 113 mmol/L High 101-111 [facility] Comment on above: Performed By: #### 1 [id number], [id number], 3632791, 46936892, 6327151170, 1401151 ####[facility] (DEFAULT)[address] [place] [address] 80201 CO2 [Moles/Vol] 24 mmol/L Normal 21-32 [facility] Comment on above: Performed By: #### 1 [id number], [id number], 1243400, 91866192, 1614550927, 8603737 ####[facility] (DEFAULT)[address] [place] [address] 27078 Creatinine [Mass/Vol] 0.67 mg/dL Normal 0.60-1.30 [facility] Comment on above: Performed By: #### 1 [id number], 7883311404, 0524684, 29624068, 4854733968, 7943211 ####[facility] (DEFAULT)[address] [place] [address] 79959 Globulin (S) [Mass/Vol] 3.3 g/dL Normal 1.5-4.3 [facility] Comment on above: Performed By: #### 1 [id number], [id number], 3557109, 12177925, 6273047669, 8817228 ####[facility] (DEFAULT)[address] [place] [address] 84451 Glucose [Mass/Vol] 92.0 mg/dL Normal 74.0-118.0 [facility] Comment on above: Performed By: #### 1 [id number], [id number], 0221046, 36102741, 6136432328, 9762918 ####[facility] (DEFAULT)[address] [place] [address] 91608 Osmolality 273 mOsm/L Invalid Interpretation Code [facility] Comment on above: Performed By: #### 1 [id number], [id number], 9555366, 79632982, 0066819911, 3993746 ####[facility] (DEFAULT)[address] [place] [address] 30065 Potassium [Moles/Vol] 3.6 mmol/L Normal 3.6-5.1 [facility] Comment on above: Performed By: #### 1 [id number], [id number], 1905249, 46096438, 2740617501, 0157026 ####[facility] (DEFAULT)[address] [place] [address] 49620 Protein [Mass/Vol] 7.1 g/dL Normal 6.5-8.1 [facility] Comment on above: Performed By: #### 1 [id number], [id number], 6891859, 62631101, 7377672135, 3136587 ####[facility] (DEFAULT)[address] [place] [address] 24873 Sodium [Moles/Vol] 137.0 mmol/L Normal 136.0-144.0 [facility] Comment on above: Performed By: #### 1 [id number], [id number], 0918406, 95393044, 7615261400, 7360371 ####[facility] (DEFAULT)[address] [place] [address] 12247 Urea nitrogen [Mass/Vol] 11 mg/dL Normal 8-26 [facility] Comment on above: Performed By: #### 1 [id number], [id number], 7205039, 53343595, 2777752560, 0257027 ####[facility] (DEFAULT)[address] [place] [address] 48121 Urea nitrogen/Creatinine [Mass ratio] 16.4 mg/mg High 4.6-16.2 [facility] Comment on above: Performed By: #### 1 [id number], [id number], 4209173, 02839766, 1103854973, 1439903 ####[facility] (DEFAULT)[address] [place] [address] 81364 ED Note-Nursingon 06-07-2024 ED Note-Nursing PT. C/O left sided flank pain that wraps around to the abdomen. pt. states that the pain started this morning when she woke up. Pt. is having urinary discomfort ad frequency. Pt. has a history of UTI's during her last . PT. states that she is currently going through a miscarriage. PT. is seeing Dr. Marrero for the follow up. Pt. is A&O x4. PT. has a steady gait. Normal [facility] Extra Redon 06-07-2024 Tube Collected Yes Invalid Interpretation Code [facility] Comment on above: Performed By: #### 1 [id number], [id number], 6007031, 05889188, [id number], 4451783 ####[facility] (DEFAULT)[address] [place] [address] 58922 UA Standardon 06-07-2024 Breakpoint UA Normal [facility] Comment on above: Performed By: #### 1 [id number] #### [facility] (DEFAULT) [address] [place] [address] 75455 Color (U) Yellow Normal [facility] Comment on above: Performed By: #### 1 [id number] #### [facility] (DEFAULT) [address] [place] [address] 45834 Glucose (U) [Mass/Vol] Negative [facility] Comment on above: Performed By: #### 1 [id number] #### [facility] (DEFAULT) [address] [place] [address] 50450 Ketones Ql (U) Negative Normal [facility] Comment on above: Performed By: #### 1 [id number] #### [facility] (DEFAULT) [address] [place] [address] 05564 UA Bilirubin Negative Normal [facility] Comment on above: Performed By: #### 1 [id number] #### [facility] (DEFAULT) [address] [place] [address] 10255 UA Blood MODERATE Abnormal NEGATIVE [facility] Comment on above: Performed By: #### 1 [id number] #### [facility] (DEFAULT) [address] [place] [address] 05964 UA Clarity CLEAR Normal CLEAR [facility] Comment on above: Performed By: #### 1 [id number] #### [facility] (DEFAULT) [address] [place] [address] 28548 UA Leuk Est Negative Normal NEGATIVE [facility] Comment on above: Performed By: #### 1 [id number] #### [facility] (DEFAULT) [address] [place] [address] 81433 UA Nitrite Negative Normal NEGATIVE [facility] Comment on above: Performed By: #### 1 [id number] #### [facility] (DEFAULT) [address] [place] [address] 62593 UA pH 6.0 Normal 5-8 [facility] Comment on above: Performed By: #### 1 [id number] #### [facility] (DEFAULT) [address] [place] [address] 63806 UA Protein Negative Normal NEGATIVE [facility] Comment on above: Performed By: #### 1 [id number] #### [facility] (DEFAULT) [address] [place] [address] 79067 UA Spec Grav >=1.030 Normal 1.001-1.035 [facility] Comment on above: Performed By: #### 1 [id number] #### [facility] (DEFAULT) [address] [place] [address] 79284 UA Urobilinogen 0.2 mg/dL Normal 0.2-1.0 [facility] Comment on above: Performed By: #### 1 [id number] #### [facility] (DEFAULT) [address] [place] [address] Urine Source Clean Catch Normal [facility] Comment on above: Performed By: #### 1 [id number] #### [facility] (DEFAULT) [address] [place] [address] 04302 US 1st Trimesteron 06-07-2024 US 1st Trimester EXAMINATION: US 1st Trimester, US Transvaginal REASON FOR EXAM: flank pain, recent , r/o ectopic preg COMPARISON: 03/20/2024 TECHNIQUE: Transabdominal and transvaginal scanning. FINDINGS: Uterus 7.3 x 4.9 cm Endometrium has thickness of 6 mm. No intrauterine gestational sac is identified. Right ovary 2.8 x 1.9 cm. Multiple immature follicles. Blood flow seen in the right ovary with duplex left ovary 1.5 x 3.2 x 2.3 cm with multiple immature follicles. There is blood flow with duplex. No adnexal masses. There is a small amount of pelvic free fluid. IMPRESSION: 1. No ultrasound evidence for orthotopic or ectopic . 2. Minimal simple appearing pelvic free fluid. 3. Normal immature follicles on the ovaries. No evidence for ovarian torsion. 4. Correlation with quantitative beta-hCG required. Final Dictated by: Apolinar Toussaint MD Dictated DT/TM: 06/07/24 1:51 Signed (Electronic Signature): Apolinra Toussaint MD 06/07/24 1:58 pm Technologist: [facility] US Transvaginalon 06-07-2024 US Transvaginal EXAMINATION: US 1st Trimester, US Transvaginal REASON FOR EXAM: flank pain, recent , r/o ectopic preg COMPARISON: 03/20/2024 TECHNIQUE: Transabdominal and transvaginal scanning. FINDINGS: Uterus 7.3 x 4.9 cm Endometrium has thickness of 6 mm. No intrauterine gestational sac is identified. Right ovary 2.8 x 1.9 cm. Multiple immature follicles. Blood flow seen in the right ovary with duplex left ovary 1.5 x 3.2 x 2.3 cm with multiple immature follicles. There is blood flow with duplex. No adnexal masses. There is a small amount of pelvic free fluid. IMPRESSION: 1. No ultrasound evidence for orthotopic or ectopic . 2. Minimal simple appearing pelvic free fluid. 3. Normal immature follicles on the ovaries. No evidence for ovarian torsion. 4. Correlation with quantitative beta-hCG required. Final Dictated by: Apolinar Toussaint MD Dictated DT/TM: 06/07/24 1:51 Signed (Electronic Signature): Apolinar Toussaint MD 06/07/24 1:58 pm Technologist: [facility] Normal [facility] hCG Quantitativeon hCG Quantitative 5.2 mIU/mL High 0.0-0.6 [facility] Comment on above: Result Comment: Post -Menopausal Reference Range is: 0.1-11.6 mIU/mL Performed By: #### 4 [id number] #### [facility] (DEFAULT) [address] [place] [address] Coding Summaryon 06-04-2024 Coding Summary HTMLBase 64 KjnasgomLOc8tBp+PGhlY WQ+IF0GHRDaL88wrMBtbH 4tR7GLEYfXEjduPALOXDq SSeRvtnBsWT7zhNEpKSEr IC8+HR0oNZAbXafaqXOym 6A2cCJ5A10onh3mLGdcnJ G0BCAmAkUgwcpwh8oetOd 6IDcuNmluOyBt CLLapL89ZAC9yY86Lz36w BLpvLNex4dziFw5BaYpUG ImPMX9jTjuWEdwm7MlWON oG59nuYAnb6N0 MVMkiPeknAKdAbCsyHU1s S1gTVfnbnowz9tfumjsUv u1gt23iTZka9S0vUX8R2D esjJ5ZATnjQLe BuowcVAHmL8mmkdfp1oox uyrFsGuOZLfUEk9OTl9LQ XbyJrxOmElYJ20EOU4HBI tpbEeF0TdAMPt zRhuAnY3l1M0Pd2QI7HES elfN0JTGYGRDGapjRY+PC 15mj19K4KgNjvaWdv6DML lIBW2wAZ2hB4c WXEzIRewn2H5qFF8G8Cew jTmob2yu9qqTRRwXLacV2 3usLPqv3G8FPYreKP2MXE kiCraRuGxiL80 Oyc+TPWuxFgem5OyJatwl 8rjc4brlIy4MobjOAYtcu IdbPmbYQB5e3OlLc3zPCJ bkDA4gIK9tV2r MgDfRwU7DRieJ604EkYxt EVdTjgeV76uH7JhoMU+PH GrKuk6LKKssKyrBX9lI1F hZGRpbmctbGVm nGtxSY1iFDGdzeibQGQai M1dGHEnO1a0MrWkHnW8VO ifP4WrGESdbysjKt78yT1 kAmGdGgV4LBqc Q5BkypN4ZPJkmCSiXBslZ YW1C68gk0Z2GPXbRNNeMG E7mAT8bW9kqUqbglnkoCU mdDsgdmVydGlj WJqzEFufF481ZBAwqLszI kNvZGluZyBEYXRlOiAgMD IvMjcvMjAyNTwvdGQ+PHR oMDZ9hCmwLYGm nZUmFByaYj2veBsqzLszH F5eZZCgkuyjUZYwxB7xTL VamVPtiFbmWJ4hTCSqbgw nc405YfJdQIG5 BEOirLLjG0EbdH3wIyHlH APsRDFgL8HftEVmUIukS1 12ODzgSeB3MKYvbsBsB2Z sLWFsaWduOiB0 i7J0Jv4Nz1GwjnojP2Lvq MMaJfPxGtejWQl8U2JuFm wvdHI+YE99JPKmCN30NZa 5WVN1uIhdPHuu BEUbI1RjsC3hHvZfCBYyS GRkOyc+PHRhYmxlIHdpZH RoPScxMDAlJyBzdHlsZT0 eKg2xELVbTMCq mKztsLGyEiZiy5apNVVnB GvzIU3mnGagU2YtjWQ0HP Cso1y5Qn84R66rS2UfrTI +MPGhsUR3tBM2 cV7oNqDdHuH3WLlnK403K lKocMXeVaafq3lkg3gmcM t3JaA4UMEohzEdbAvmPPR 1x2IdXf51P20b IHdpZHRoPSIxNSUiIHZhb Cshsj4iiA0oNa5+PGNvbC I1oUC6sO5lWyEtRsD0OJe lI797LkRfgOGk Xfgex2eok1llhFm5InYrN QPagpHcgEiuUOF8w9MyYp 06C1TlfNtir2PmVvw1gq5 7xNBpe9N2jAK2 W3MvCAGiqprbcUMxmRmxC O7rJVAshgfoVQQbmE2wIN GvL7l5LjMxWyX0SPcvZ1D nlwK3CCBrrPMl WIPpkTDQgJ2omjocf1itn qjqFzGkADFdKQt2JWg0QT ZatQwuUoNxGDR5UwX2PAU 3oDLrmM0orBnh wsosnM3uIpt+XIV3dEVjd UZEPJ6vSkyldSP+PHRkIH N3eKhoRRhwPWEkeQ9mPLU xO0j0OkRtDwV5 WQzxP4WhxeL5UROrkPAdA GTxcPKWuQ9dzwasz9akbt ahKyKwVTAuDAh9GRp5LAX saWduOiBsZWZ0 OpL9XOD3qPGapV8ktPmue zjbbN3pSbn+QmlydGggRG A8AHd5A7GgOej3MOSnmJx rNK7emYOvWNme Lb5xnYqeuSimOV6rATPfp jyav194KmQud1gnKRAguP OgDKhoYLT7M70ge0W7XHM vTNZmAHP2nXR7 hX8chKwjobpoaNHppHqyc jNfeWxbCBuaZSznN430GN KynMrnDkYtVPx1I0TfZyq 0AWEuvQngEO5t hFYmNLdnXx1lsOswqYenZ O0yTJIzqkyhu168FyTmi1 exNXYktVQnSVfoJVT2G01 kb9I0MDMxOCMd LKP6jWL1qG6qdScriwvql GVmdDsgdmVydGljYWwtYW vlQ758EWWdsIywJtOdmOc 4H9KpXfv4UKPh zTxqSN7gmBSrFOnyDn8qy EptiGehSU0sMZDnfwjkz4 97SxGuk4twXTSaxKJoTWw xZQV0F43mu0Q2 RKGsDHXkYZE3eKE7nN6dx GlnbjogbGVmdDsgdmVydG ozSQuyFPceZ432MKZaoPa nPlBhdGllbnQg FEcoRAo1D5IaFsudxOY+P Q16OLVqXX05cYKzhHTus3 tziWe9YkEyMIVkIFO3pXo fODcxp6CrZCTu A45wxXQyn8Z2KBArlAywh DFaJbIypLM6tV0bFSwrux pol3hcqtpvIcnrx8qbbx4 4fN08U74kGUyl ZHRoPSIzMCUiIHZhbGlnb m4bsB1eUx6+TUOrrSH2mH N6hD4aYHGfClL4LRglK40 9InRvcCIvPjxj y4lbn9egjBj7IpM6BFRkv bYkkOgwDLM5f0UwMk93X8 9sIHdpZHRoPSIyMCUiIHZ bjGanmb5ykL0b Ii8+ITXamUF5uDJ7dA5tR cNhSuO5HDtkT351TjCrgC MdTgrmS02kH7JloWZ+PHR qMzk4BDNpmNgl KG3abEVoUFmmNy0fXLF9E vOoLcNjNVfzL6TvDZDlis bcrouleUP5QCEtLWSfeX2 7Ly4wmIydTAOk vTVLkI8gwtvou2nbkixuV jStGOHmDQa5VEh2QWUccK bhOrDtWKJ0QrE8VRJ5lVT lbN7ewXpmvvrp cJ0jF6IdIGYkpfxaBt38b A0oSiTuEcL1UZyjIkz+R0 yIGgVSHZueS9gBOWIPOGc KSB0OSIhciIF+ RXVlVTR2wDhiIMziIGCoj A1tYREdZ3y0IiCgBxP6ZG ibL3PmUHHhftjcGf47iQ0 tUvZcZtG6PDvo L2YjnzM6FXSzuOHhUGmhJ BK1K14rc0O2FXEnSISiMM L2pPS3tF9kiDythhxrlQW mdDsgdmVydGlj ORunJZlkU887SYLazGgeV bB2GvKeAiKpOVB8L0ShIy t9DVGnrFbyUJ5ioNVyDAl bQl7cjRjgnRbf MV9yPDUtzcwnWWNfdC9pO DAnjQYceBxtJG2gBGMztr wxe437UmGyUBM2HDYjwRF xN3QqwG0eYuIu LDXgRCCqZ9HdkQExXBmpN 947HOazVvT8PLEjvkUlY3 XlVCZtkJjtPiM1u7C7Ta2 yMiBZZWFyczwv dGQ+GPSqYTA8tFooJSnzG CNfoB1yZDJoY6o0OpNlYr I1TPptT8LuEGXytydbOe8 6fZ9xVdGxXtR6 IAamZ4DmfnF1YORckWOkE XiaVFS0S58mk9R0SGGiNM KjFUI5tMW6sP9inUkfaew gbGVmdDsgdmVy rEthLBeiREqiI841EILqy DsnPkZFTUFMRTwvdGQ+PH PxFID6fRnuIDieDAFffS5 uQCVkU5y9XaLl MvZ8BRezR4NiQWCqelxyR h96cM3zKvGdWwM2AScwR8 NbssY9APCnbFMuBDcbDXM 4D67pa4I8SRGp MYAsBJJ4aLL1rF1upKgeh jogbGVmdDsgdmVydGljYW shYFflJ694CWSpgIcdDe1 JGG89BB54W6Xq PjwvdGFibGU+PHRhYmxlI HdpZHRoPScxMDAlJyBzdH mmHK2iNz4hSHYbRFYjqMo ohPVtFzYmc0ba NSHfLEbmEZ3odVdlI3Ifl XJ7YMLqu2y2Pb27G31oB1 JvdXA+CDXuxCX0gAK2bO1 fCnTaEbN3KNyr L838YbExpJStEnasl5eaz 8njdJt6UmBjZPAqkkOxiH xoJKI9u0ItFm02Q43vWNp pZHRoPSIyMCUi LPGzaAnmgk4csS9wBo8+P UWuyAI0pVZ8oS8bNoZuFj Q4BDlgB409HfQyrTNbEmz jQ37sH1PwbUO+ COWaRdo4ASPwcCxnDT9yc YUmLUslZm6mBXW7IaOmHr AoDGthY7AqDRVysxsgnhu vcFO1SCUhXHOk vX18Rh4qsZgrTu6nDFXuW CE6RXImuVNqP4QktD8vPi WmGRRlBISqO9VruQDzTRo iK165WVujXkW0 HLTiqiRnC7ElAKLdvGdrJ lW0v0J7Ux1DbHsxrWNySZ 6gPlCdIRm9Z0FeCio1MJS xtKlfVD3afGJe VGaeYs7hjYntyYcnDU0hY QTnflwss073CfUep0wmSF QeyMBcCCgbWJV1T74oc1F 6LQLxGDWtBGL9 hKZ1yU5bjYvltiijaJUcj DsgdmVydGljYWwtYWxpZ2 72XMCbyShoPjEEKsw4L3D iWbi4ZVDdxIps UJ6jkRJjWHigQc3syMrgr OhdNV2fUBOmfveps395Nr Vul6ttQNRmjCMbLHuoMUI 2D32vo8J1UDAl YFByVDZ5oUW8vB7liSduq jogbGVmdDsgdmVydGljYW bhHFziQ512HKAdhCcmWu1 EZaw5K1BdYnd4 QYGbsAwiMZ9sbMDyHGccG j3faTwnxBzuAT0nNDYprs yxz043IqUxz1muYFCcbPD wDQlfMPO5F09q y5L1DDHbMTTpVLB6fHR4b Q3dzBoyzsygtYWbxNpzhm TnfYqpATnwTUnpM067ZQD vcDsnPlBheWVy OjwvdGQ+OC85hd99C4UvL abbMln6BCYvUIN0nCK1tR 4wQXKpOWffu2I3cIS7L2B lrjDhtb9gs5pu YXB (more content not included)... [facility] Summary HTMLBase 64 OwuofsukNBp8zZp+PGhlY WQ+DI2GTYBnG15phBYasP 8uH2CTNUcHGblxPXBHVUd RNiKtjqPyIR7rbGWkJLUe IC8+CQ6iPBIeFxnyyTFva 0M9yYS3Y00qmr8oLRollS W7OBBtFpLjgdltm3tjrGt 6IDcuNmluOyBt XCZigI85JTB4oL84Pq63i KXukBIjd2rncZy9AmWvQM BtVUI1gVdaJOvev7WkLZP jP19koQXqc9D9 KDBdlFntoSTzAoIxjFY2q C4jFJrhdqefo6vvucwlYv r4cw76ySFpg4T7fVT8A7T apkX0XFHvgTAb VtkeeJDItE5fcwhhy5yoj ogxErZjHCKlYUk5TIo5CQ YwsWybJeVwVI35RON3FBM yxyJfD9YgRHSj wQyvHtL2r4I0Cl4IT4XBB accW7ZMJTEORHndaVM+PC 94dz08E2UeUlkvMcb0HNF oSYC2nMW6cU8r OPJaJJnlu5Y9xWD0F0Xua wYnug8ht4mlJKYhSDneY4 8mcTUfy7K3FWTzpIK3EMG vgZncJkTpzT50 Oyc+GGKstMgxd3UkRquja 9wtp9hkaSq3VkorNKNqlo XviTcvNXD1i4NbRp9eXTI duLC5nAW9xU7j TqYgZeA0DVjsH096BzZvz VCsUiewO06lZ5SwaZZ+PH WfEgt9PVZysDtyLT8uQ3B hZGRpbmctbGVm mAyoFN1dMUCuyivoICMdo E3lUMMtZ0d9WmAvRcE1WZ mlQ2AwPHGdimdeSm80tZ3 lQuHxMbR9AJie H2IgouT3CQXkcXKiLXirE VG1I65uz4P5GSGzAVNoIF Z7dXI7eF6fgAqysxxkcCC mdDsgdmVydGlj WHprJHziF193OZLexSatZ kNvZGluZyBEYXRlOiAgMD IvMjcvMjAyNTwvdGQ+PHR rMMS5xClnMCZp oHDfIXvoFh1mfXuhuGivS Z5bLKJsegazKQUttG4dPP EfhJNpgVobJF8cVOXvtnn fm673MiUvZRZ5 SCWqrFUvD4BxpS3uUyHzT ONjNOZaH2KlaNVwRZhiP3 06ESxnQjV5OIEmqsBpU1F sLWFsaWduOiB0 b6U3Yz5Cv2VczrtzL6Xjv EZpCeEoPthkVEc2J6DyIa wvdHI+DK02JSUkCB70CIu 0QHF4vCzvDHtr WCTvU2JxaP6qMnQwZMTtA GRkOyc+PHRhYmxlIHdpZH RoPScxMDAlJyBzdHlsZT0 sPl5iXCOhTOKu zQkaxVNqEoRfy6xtMLVmW JlxCJ1qiHjuG8IdaNK8UM Rhg9y7Do65T70zV8IiyJE +MBImlFD0iNX1 rK1qVoQjSaW2JMgxS846Y hWpaHTbJvdtw6aqn4fxzH w0DcU6IEOklqUlrWqqUVK 7f4VtXn89U68k IHdpZHRoPSIxNSUiIHZhb Kennr3enU6cZc5+PGNvbC U5zHG3hH9jSrTuFuJ8AFc dI705IoOxqRAd Prmgb4vsa0cupMr8VeHxT YVszjFyuHroJUZ1i9UwGc 96A7QuyZzts4EpLeu7gc8 1jWZmd5P5rPL2 Q0GjNSGdvwvnvZWhuSapT A3yJVSvzlauXIQncN3bFQ CrM9h9HkGjZwY0IOpuV4H oiyI7YOYbbEZq LOVhaWBPnW7mozqak8ksj xsrNzOvGDScANl8RYp2JC LliSnqRcIyFSW8AvF6RSB 7hRFbtZ9xsKgs szviwX2iJxq+OTH2aZMdb EEECZ2hNyirpVU+PHRkIH K9hDbkDGyoVJPqhQ5oIKT cV8u3EfIuWsM5 SWhhN0HdflC5JHVumFQrP SAopZTMsZ8ynujfc3oiiq haHaGeYLWhSAy6FAb7NSY saWduOiBsZWZ0 TlH5MKH1yHNtyG1wfMhhn tjyaG6hXgx+QmlydGggRG R1IJh1P9DlLzr3BHNisAp mFL0wwJZoHLns Wl3ssPytwVjpGI2tWPRdr wsdh827FsBvm8qrSCNulX MbWCtwKXK8B59ei9W1HAP qIHFsYQV6fOX8 tY8mvJatymszdIOpwWgph wUqxYmpBMbuSYynX389SZ EixShrXgJlHMh0Y8EtOmy 8WXZebUwqHI9p bYDpUCqiZj9lsTokmPsgD Z2eMOPxvbtty589NvWcy2 blXUNqdCXzZUtqRQK0T57 nm1T1DGRjIAPh KAB9jCR2qR9gfTfmgmebe GVmdDsgdmVydGljYWwtYW skH793UEWivRvtXbVmnPp 2E0GuFpn0OYLu cLaxEV8kxCNeSNyiIw8eu UsjaDpgCP6qDAPmobkjw4 22AmTcv0siULYzqJMwSJi dVQE0U17mf8H4 LBXfZZMqIGJ5qBB4qS1ha GlnbjogbGVmdDsgdmVydG qyOWslVKmqB889PUHirKm nPlBhdGllbnQg XQhwHKy2J9PpVudyySP+P M80WNHeCE54sVSqmMSjk4 agvUw8KkUiFNMrRDF1tWu wSXmxt0GkLELs V33kmPPvf0F0UPKcsVyne WXgOeHlcIX1bW4gSOkmfl dbm3krzecvNhfdq6keiq4 3tD17P32vZEol ZHRoPSIzMCUiIHZhbGlnb v8ruI5gSc7+FRXzsXW0wL B3aP2nQYBaCgG8NZumD73 9InRvcCIvPjxj d1rck4wrxDq4KpQ9KORkj sOdfBtjMXV0g2QuKg95Y6 9sIHdpZHRoPSIyMCUiIHZ yhMefrl5myX5h Ii8+NWLfuNY9pUZ5hP0bG xSmAoZ0VVxpO733MfYsxL MwUewfL59cK5KjiQK+PHR mTxa0WAMctZtm UM6euFPwKNtvSp2uKLY2H eNhTwMyZXvcG8BiRPWeor hyoxjwfMR8XBQkHQSnzN9 9Ce6ekJejVSAz vLMPiP6senles5mcqqnpU vBhGAPfZXn5DNc1TPCekJ oiLoGhSDQ0PbK9OQD4aOV qgZ6fcSpbkxfm mY6oL7UwWFMwtfafDi54a L7rZzEkOtT8SOlmIko+R0 fGFoNDPNnrJ7bCTQRZONp KQZ9GDBzngLP+ NRUmMMQ8oNewDOnkKLRou M6wHBHjM7n0ItIvPxV3TB gzR7GjQYJsjsbsGa38nT1 hExQiCnG1RPpd S9HdikI3ZNRziHPtLKxeB XL1J64kc5T7OONkWDVcTI T4oXO2vL5qyByyowvohSR mdDsgdmVydGlj OQxrOQvwV094YAUxoPolA dY7WhOuInWlZCO5X7UpRj k4JXZruNwqIL0jdDIeDZr bIr3twWdgpFnz YT3hFZUwijfdTKGjxR6uC PUivLDgrNrsBE9oHXEnrl skq381CoRfTTT9UNLieKS lP5SngC4dTbJo JXXdETKzD8QofRUzBSvaM 444HXmgWaL0PHFzvoMiX2 ZzCZZhtOjqEsO9i1A7Kl6 yMiBZZWFyczwv dGQ+BGVwEQS0qAimAOtiU HLcnE9tQSHyV9h1XmSlGz W7PRtpW9CbVNIeetdpBz3 9nG3zLoZjQdD7 KAduA9WtreF6QMTihSPpY OsaUIY4U48nq2X9MKFgGN QwQXT0eIU2cW1igOtgnvy gbGVmdDsgdmVy lOihDVeqBHwwA354QTZvi DsnPkZFTUFMRTwvdGQ+PH LhNUT5qDdgHMwcDFZqnN7 bGPPzN3r6YwHi MnM0WYqhK8VcXVCeotkwP m93nJ9vKbHbQbG5JDprR8 OsxyK6LWUlxLIdDNcqWTB 0W17cr9L9HPHi UKVrOJU8sWZ4iV1srRkir jogbGVmdDsgdmVydGljYW cpQGjzY126LPNanQqbLxK tA7YljiuyGsKH bWPpWYAdWX07LR59UM77F 3RyPjwvdGFibGU+PHRhYm xlIHdpZHRoPScxMDAlJyB yzTqnKW5uVf7h ZGVyLWNvbGxhcHNlOiBjb 7hgWWApSUnzDS1yuOnsL2 ClhDJ9AOFxv2f7Xm32E99 fX4MkkCV+PGNv zZP3pBB0zN9cNaFxCzP1T GsjV632WpVnkZKbKobbp0 gsx0epwYa6XeRdVEUafoL zhQqdDZV7p3Mt Lo97M76dNTszNKBrPXXhF DKaHFLhcSvvxz1xkD8lPw 8+OUDtrJF3jAZ8uO0yPyC yYwT2BZpwR370 HhBmbDWbMpqzK35bX2Tum XA+YIKpCwh6WFFynSweGG 8hyBWuTMajPw8pPUO9OzY nGfFzOWpcH0As ZXCddlkpevfstJV0XSAhW PBxiK82Ya7olIezDw8sKJ LwCDU9INMnjWXpK8KtzH2 yOiAjMDAwMDAw N2ZerKXwADnbJ275AVgrL fJ0JEYhnvVrK5RdXLXsqW roAxU0a5M9Lq4MhPaivXB gJX6rFeUqRTp1 T7UpLal0REOmuXveBN3pc PBoRHyvGw4ixGyreLakKA 8dPCVbnzqyd374LxYzu9k kIDEwcHQgVGlt GGH9T96ya3E3BALdFQReB MF7vJL3wO6bpPpyxudzhH VmdDsgdmVydGljYWwtYWx rN702DPCnmEqy FkBEEsf5R7ToVxk2MZQqt DmoEV1pgXHmRCkrGr5iyG teoEjnMZ4uAGDwmeqxs37 9SqDnu0faZHHo bDGxRMpnTQK1C04ao3J5G PCtBGAxEJP0oRW3wJ0urX lnbjogbGVmdDsgdmVydGl jDZerLDuqL543 GGBtiWokBy9VQwv1S8WpA fo3ZYWrpNozCF9dvGQyEK blLu6meUoevUgkFZ9iYMQ rjfmbs952MeQg g3uqLQDmtVAxHMitJEZ9U 15kd0G8IHZvQYIkYXQ6hV Y1gJ6snVgjwvicpDYmrId gdmVydGljYWwt OZngZ739DKAyqOjiWrEly WVyOjwvdGQ+MT43to16B3 VqFftfYfq5IZZdQIE2tZI 1wQ0uKWCiXSfw c3R (more content not included)... Normal [facility] Provider Orderson 06-03-2024 Provider Orders [id number] 3 [id number] Normal [facility] hCG Quantitativeon 5 hCG Quantitative 98.7 mIU/mL High 0.0-0.6 [facility] Comment on above: Result Comment: Post -Menopausal Reference Range is: 0.1-11.6 mIU/mL Performed By: #### 9 [id number] #### [facility] (DEFAULT) [address] [place] [address] 81256 Provider Orderson 06-01-2024 Provider Orders [id number]# 1.00OTGTIFF [facility] hCG Quantitativeon 5 hCG Quantitative 366.4 mIU/mL High 0.0-0.6 [facility] Comment on above: Result Comment: Post -Menopausal Reference Range is: 0.1-11.6 mIU/mL Performed By: #### [id number] ####[facility] (DEFAULT)[address] [place] [address] 15568 BASIC METABOLIC PANLon 05-30 Anion gap [Moles/Vol] 8 mmol/L Normal 5-15 [facility] Comment on above: Performed By: #### B TERESSA CBCA, 34242-8 ####[facility] ([id number])[address] [place] [address] 41271 Calcium [Mass/Vol] 8.9 mg/dL Normal 8.5-10.5 [facility] Comment on above: Performed By: #### B TERESSA CBCA, ####[facility] ([id number])[address] [place] [address] 50920 Chloride [Moles/Vol] 108 mmol/L Normal 98-109 [facility] Comment on above: Performed By: #### B ARTI GANNON, ####[facility] ([id number])[address] [place] [address] 04784 CO2 [Moles/Vol] 21 mmol/L Low 22-32 [facility] Comment on above: Performed By: #### B ARTI GANNON, ####[facility] ([id number])[address] [place] [address] 00397 Creatinine [Mass/Vol] 0.60 mg/dL Normal 0.40-1.00 [facility] Comment on above: Result Comment: METH OD TRACEABLE TO IDMS STANDARD Performed By: #### B ARTI GANNON, ####[facility] ([id number])[address] [place] [address] 55285 eGFR (CKD-EPI) NON-RACE DEPENDENT >90 Normal >59 [facility] Comment on above: Result Comment: Reported eGFR is based on the CKD-EPI 2020 equation that does not use a race coefficient. Performed By: #### B ARTI GANNON, ####[facility] ([id number])[address] [place] [address] 66441 Glucose [Mass/Vol] 99 mg/dL Normal 65-99 [facility] Comment on above: Performed By: #### B ARTI GANNON, ####[facility] ([id number])[address] [place] [address] 72764 Potassium [Moles/Vol] 3.7 mmol/L Normal 3.5-5.0 [facility] Comment on above: Performed By: #### B ARTI GNANON, ####[facility] ([id number])[address] [place] [address] 06492 Sodium [Moles/Vol] 137 mmol/L Normal 134-146 [facility] Comment on above: Performed By: #### B MP, CBCA, ####[facility] ([id number])[address] [place] [address] 23356 Urea nitrogen [Mass/Vol] 10 mg/dL Normal 5-23 [facility] Comment on above: Performed By: #### B MP, CBCA, ####[facility] ([id number])[address] [place] [address] 28551 CBC AND AUTO DIFFon 05-30-19 25 ABSOLUTE BASOPHIL 0.1 X10E9/L Normal 0.0-0.2 [facility] Comment on above: Performed By: #### B MP, CBCA, ####[facility] ([id number])[address] [place] [address] 33375 ABSOLUTE NEUTROPHIL 5.9 X10E9/L Normal 1.5-6.6 [facility] Comment on above: Performed By: #### B MP, CBCA, ####[facility] ([id number])[address] [place] [address] 22842 Basophils/100 WBC (Bld) 0.9 % Normal [facility] Comment on above: Performed By: #### B MP, CBCA, ####[facility] ([id number])[address] [place] [address] 52455 Eosinophils (Bld) [#/Vol] 0.1 10*3/uL Normal 0.0-0.4 [facility] Comment on above: Performed By: #### B MP, CBCA, ####[facility] ([id number])[address] [place] [address] 60274 Eosinophils/100 WBC (Bld) 0.7 % Normal [facility] Comment on above: Performed By: #### B MP, CBCA, ####[facility] ([id number])[address] [place] [address] 35075 Erythrocyte distribution width (RBC) [Ratio] 14.8 % Normal 11.5-15.0 [facility] Comment on above: Performed By: #### B TERESSA, CBCA, ####[facility] ([id number])[address] [place] [address] 93293 Hematocrit (Bld) [Volume fraction] 37.5 % Normal 35-47 [facility] Comment on above: Performed By: #### B TERESSA, CBCA, ####[facility] ([id number])[address] [place] [address] 61082 Hemoglobin (Bld) [Mass/Vol] 12.3 g/dL Normal 11.7-15.5 [facility] Comment on above: Performed By: #### B TERESSA, CBCA, ####[facility] ([id number])[address] [place] [address] 00175 Lymphocytes (Bld) [#/Vol] 4.5 10*3/uL High 1.0-3.5 [facility] Comment on above: Performed By: #### B TERESSA, CBCA, ####[facility] ([id number])[address] [place] [address] 35143 Lymphocytes/100 WBC (Bld) 39.5 % Normal [facility] Comment on above: Performed By: #### B TERESSA, CBCA, ####[facility] ([id number])[address] [place] [address] 99889 MCH (RBC) [Entitic mass] 27.0 pg Normal 27-34 [facility] Comment on above: Performed By: #### B TERESSA, CBCA, ####[facility] ([id number])[address] [place] [address] [place] [address] MCHC (RBC) [Mass/Vol] 32.8 g/dL Normal 32-36 [facility] Comment on above: Performed By: #### B TERESSA, CBCA, ####[facility] ([id number])[address] [place] [address] 30777 MCV (RBC) [Entitic vol] 82 fL Normal 80-100 [facility] Comment on above: Performed By: #### B TERESSA, CBCA, ####[facility] ([id number])[address] [place] [address] 34611 Monocytes (Bld) [#/Vol] 0.8 10*3/uL Normal 0-0.9 [facility] Comment on above: Performed By: #### B TERESSA, CBCA, ####[facility] ([id number])[address] [place] [address] 36711 Monocytes/100 WBC (Bld) 7.2 % Normal [facility] Comment on above: Performed By: #### B TERESSA, CBCA, ####[facility] ([id number])[address] [place] [address] 14609 Neutrophils/100 WBC (Bld) 51.7 % Normal [facility] Comment on above: Performed By: #### B TERESSA, CBCA, ####[facility] ([id number])[address] [place] [address] 96343 Platelet mean volume (Bld) [Entitic vol] 8.9 fL Normal 7-12 [facility] Comment on above: Performed By: #### B TERESSA, CBCA, ####[facility] ([id number])[address] [place] [address] [place] [address] Platelets (Bld) [#/Vol] 393 10*3/uL Normal 150-450 [facility] Comment on above: Performed By: #### B MP, CBCA, ####[facility] ([id number])[address] [place] [address] 23732 RBC COUNT 4.56 X10E12/L Normal 3.80-5.20 [facility] Comment on above: Performed By: #### B MP, CBCA, ####[facility] ([id number])[address] [place] [address] 70753 WBC (Bld) [#/Vol] 11.3 10*3/uL High 4.0-11.0 [facility] Comment on above: Performed By: #### B MP, CBCA, ####[facility] ([id number])[address] [place] [address] 43667 HCG ( test) Ql (U)o n 05-30-2024 Beta HCG ( test) Ql (U) Positive Abnormal NEG [facility] Comment on above: Performed By: #### 2 106-3 ####[facility] ([id number])[address] [place] [address] 03759 HCG.beta subunit IA 3rd IS Q non 05-30-2024 HCG.beta subunit Qn 612 m[IU]/mL Normal [facility] Comment on above: Result Comment: NEW REFERENCE RANGE WEEKS (SINCE LMP) [...] necessarily diagnostic for trophoblastic or nontrophoblastic neoplasms. Performed By: #### B MP, CBCA, [id number] ####[facility] ([id number])[address] [place] [address] 30458 URN MACROSCOPIC NURon 2024 BILIRUBIN NEHA Negative Normal NEG [facility] Comment on above: Performed By: #### N UM ####[facility] ([id number])[address] [place] [address] 15294 BLOOD/HGB NEHA MODERATE Abnormal NEG [facility] Comment on above: Performed By: #### N UM ####[facility] ([id number])[address] [place] [address] 34766 GLUCOSE NEHA Negative Normal NEG [facility] Comment on above: Performed By: #### N UM ####[facility] ([id number])[address] [place] [address] 15970 KETONES NEHA Negative Normal NEG [facility] Comment on above: Performed By: #### N UM ####[facility] ([id number])[address] [place] [address] 28474 LEUKOCYTE ESTERASE NEHA Negative Normal NEG [facility] Comment on above: Performed By: #### N UM ####[facility] ([id number])[address] [place] [address] 09184 NITRITE NEHA Negative Normal NEG [facility] Comment on above: Performed By: #### N UM ####[facility] ([id number])[address] [place] [address] 01690 PH NEHA 6.0 Normal 5.0-8.5 [facility] Comment on above: Performed By: #### N UM ####[facility] ([id number])[address] [place] [address] PROTEIN NEHA Negative Normal NEG [facility] Comment on above: Performed By: #### N UM ####[facility] ([id number])[address] [place] [address] 53794 SPECIFIC GRAVITY NEHA 1.020 Normal 1.003-1.035 [facility] Comment on above: Performed By: #### N UM ####[facility] ([id number])[address] [place] [address] 65182 UROBILINOGEN NEHA 0.2 eu/dL Normal <1.1 [facility] Comment on above: Performed By: #### N UM ####[facility] ([id number])[address] [place] [address] 73454 US PREG LESS THAN 14 WKS WIT H TRANSVAGINALon 05-30-2024 US PREG LESS THAN 14 WKS WITH TRANSVAGINAL US PREG LESS THAN 14 WKS WITH TRANSVAGINAL EXAM: US PREG LESS THAN 14 WKS WITH TRANSVAGINAL CLINICAL INFORMATION: 23-year-old female at 6 weeks, 6 days gestational age by LMP. Patient with bleeding and cramping.. COMPARISON: Pelvic ultrasound dated 05/01/2024 FINDINGS: Transabdominal and transvaginal pelvic sonography was performed. There is a small intrauterine gestational sac with a suspected tiny pole. cardiac activity is identified at 129 bpm. A yolk sac is not definitively identified. The right ovary measures 2.7 x 2.1 x 1.7 cm. The right ovary is normal in sonographic appearance with symmetric color Doppler flow. The left ovary measures 2.2 x 1.2 x 1.7 cm. There is a small 2.2 cm complex cyst of the left ovary, suspected corpus luteal. Symmetric color Doppler flow is demonstrated within the left ovary. No free fluid is seen. IMPRESSION: 1. Tiny gestational sac containing a suspected tiny pole. Faint cardiac activity is identified at 129 bpm. No definitive yolk sac is visualized. A short-term follow-up ultrasound is recommended to document visualization of a yolk sac and continued viability. 2. Small 2.6 on a complex left ovarian cyst, suspected corpus luteal. The right ovary is normal in sonographic appearance. There is symmetric color Doppler flow demonstrated in both ovaries. Finalized by Flakito Arauz MD on 05/30/2024 10:23 PM Normal [facility] PREG QUANT HCGon 025 HCG QUANTITATIVE 280 mIU/mL [facility] Comment on above: 5-50 0.2-1 WEEK 50-500 1-2 WEEKS 100-5,000 2-3 WEEKS 500-10,000 3-4 WEEKS 1,000-50,000 4-5 WEEKS 10,000-100,000 5-6 WEEKS 15,000-200,000 6-8 WEEKS 10,000-100,000 2-3 MONTHS [facility] PREG QUANT HCGon 025 HCG QUANTITATIVE 119 mIU/mL [facility] Comment on above: 5-50 0.2-1 WEEK 50-500 1-2 WEEKS 100-5,000 2-3 WEEKS 500-10,000 3-4 WEEKS 1,000-50,000 4-5 WEEKS 10,000-100,000 5-6 WEEKS 15,000-200,000 6-8 WEEKS 10,000-100,000 2-3 MONTHS [facility] CBC AND AUTO DIFFon 05-01-19 25 ABSOLUTE BASOPHIL 0.1 X10E9/L Normal 0.0-0.2 [facility] Comment on above: Performed By: #### C BARAK [facility], 1987-08 #### [facility] ([id number]) [address] [place] [address] 30509 ABSOLUTE NEUTROPHIL 8.0 X10E9/L High 1.5-6.6 [facility] Comment on above: Performed By: #### C BARAK [facility], 1986-08 #### [facility] ([id number]) [address] [place] [address] 08762 Basophils/100 WBC (Bld) 0.8 % Normal [facility] Comment on above: Performed By: #### Shakeel CANCINO [facility], 1986-08 #### [facility] ([id number]) [address] [place] [address] 86115 Eosinophils (Bld) [#/Vol] 0.1 10*3/uL Normal 0.0-0.4 [facility] Comment on above: Performed By: #### Shakeel [facility], 1986-08 #### [facility] ([id number]) [address] [place] [address] 06099 Eosinophils/100 WBC (Bld) 0.5 % Normal [facility] Comment on above: Performed By: #### Shakeel [facility], 1986-08 #### [facility] ([id number]) [address] [place] [address] 25766 Erythrocyte distribution width (RBC) [Ratio] 14.9 % Normal 11.5-15.0 [facility] Comment on above: Performed By: #### Shakeel [facility], 1987-08 #### [facility] ([id number]) [address] [place] [address] 99650 Hematocrit (Bld) [Volume fraction] 38.2 % Normal 35-47 [facility] Comment on above: Performed By: #### Shakeel [facility], 1987-08 #### [facility] ([id number]) [address] [place] [address] 25581 Hemoglobin (Bld) [Mass/Vol] 12.8 g/dL Normal 11.7-15.5 [facility] Comment on above: Performed By: #### Shakeel [facility], 1987-08 #### [facility] ([id number]) [address] [place] [address] 01739 Lymphocytes (Bld) [#/Vol] 3.2 10*3/uL Normal 1.0-3.5 [facility] Comment on above: Performed By: #### Shakeel [facility], 1987-08 #### [facility] ([id number]) [address] [place] [address] 35264 Lymphocytes/100 WBC (Bld) 25.8 % Normal [facility] Comment on above: Performed By: #### Shakeel [facility], 1987-08 #### [facility] ([id number]) [address] [place] [address] 55786 MCH (RBC) [Entitic mass] 27.0 pg Normal 27-34 [facility] Comment on above: Performed By: #### Shakeel [facility], 1987-08 #### [facility] ([id number]) [address] [place] [address] 97425 MCHC (RBC) [Mass/Vol] 33.6 g/dL Normal 32-36 [facility] Comment on above: Performed By: #### Shakeel [facility], 1987-08 #### [facility] ([id number]) [address] [place] [address] 41401 MCV (RBC) [Entitic vol] 80 fL Normal 80-100 [facility] Comment on above: Performed By: #### Shakeel [facility], 1987-08 #### [facility] ([id number]) [address] [place] [address] 45302 Monocytes (Bld) [#/Vol] 0.9 10*3/uL Normal 0-0.9 [facility] Comment on above: Performed By: #### Shakeel [facility], 1987-08 #### [facility] ([id number]) [address] [place] [address] 34789 Monocytes/100 WBC (Bld) 7.3 % Normal [facility] Comment on above: Performed By: #### Shakeel [facility], 1987-08 #### [facility] ([id number]) [address] [place] [address] 93138 Neutrophils/100 WBC (Bld) 65.6 % Normal [facility] Comment on above: Performed By: #### Shakeel [facility], 1987-08 #### [facility] ([id number]) [address] [place] [address] 55313 Platelet mean volume (Bld) [Entitic vol] 8.5 fL Normal 7-12 [facility] Comment on above: Performed By: #### Shakeel [facility], 1987-08 #### [facility] ([id number]) [address] [place] [address] 45185 Platelets (Bld) [#/Vol] 412 10*3/uL Normal 150-450 [facility] Comment on above: Performed By: #### Shakeel [facility], 1987-08 #### [facility] ([id number]) [address] [place] [address] 87982 RBC COUNT 4.75 X10E12/L Normal 3.80-5.20 [facility] Comment on above: Performed By: #### Shakeel [facility], 1987-08 #### [facility] ([id number]) [address] [place] [address] 49739 WBC (Bld) [#/Vol] 12.3 10*3/uL High 4.0-11.0 [facility] Comment on above: Performed By: #### Shakeel [facility], 1987-08 #### [facility] ([id number]) [address] [place] [address] 04959 CHLAMYDIA/GC BY PCRon 2024 CHLAMYDIA/GC BY PCR SPECIMEN SOURCE CERVIX Corrected on 05/01 AT 1735: Previously reported as SWAB CHLAMYDIA DNA(PCR) Negative (qualifier value) Chlamydia trachomatis not detected by nucleic acid amplification. This does not exclude the possibility of infection because results are dependent on adequate specimen collection. GONORRHOEAE DNA(PCR) Negative (qualifier value) Neisseria gonorrhoeae not detected by nucleic acid amplification. This does not exclude the possibility of infection because results are dependent on adequate specimen collection. Normal [facility] Comment on above: Performed By: #### C ####[facility] ([id number])[address] [facility], [address] [place] [address] COMPREHENSIVE METABOLIC PANE [facility] 05-01-2024 Albumin [Mass/Vol] 4.1 g/dL Normal 3.2-5.3 [facility] Comment on above: Performed By: #### C BARAK [facility], 1987-08 #### [facility] ([id number]) [address] [place] [address] 92909 ALP [Catalytic activity/Vol] 92 U/L Normal 39-130 [facility] Comment on above: Performed By: #### Shakeel [facility], 1987-08 #### [facility] ([id number]) [address] [place] [address] 28025 ALT [Catalytic activity/Vol] 19 U/L Normal 0-31 [facility] Comment on above: Performed By: #### Shakeel [facility], 1987-08 #### [facility] ([id number]) [address] [place] [address] 14700 Anion gap [Moles/Vol] 7 mmol/L Normal 5-15 [facility] Comment on above: Performed By: #### Shakeel [facility]INO [facility], 1987-08 #### [facility] ([id number]) [address] [place] [address] 13558 AST [Catalytic activity/Vol] 17 U/L Normal 0-41 [facility] Comment on above: Performed By: #### C BARAK [facility], 1987-08 #### [facility] ([id number]) [address] [place] [address] 73373 Bilirubin [Mass/Vol] 0.3 mg/dL Normal 0.3-1.2 [facility] Comment on above: Performed By: #### Shakeel [facility]INO [facility], 1987-08 #### [facility] ([id number]) [address] [place] [address] 82902 Calcium [Mass/Vol] 8.7 mg/dL Normal 8.5-10.5 [facility] Comment on above: Performed By: #### C BARAK [facility], 1987-08 #### [facility] ([id number]) [address] [place] [address] 63362 Chloride [Moles/Vol] 109 mmol/L Normal 98-109 [facility] Comment on above: Performed By: #### Shakeel [facility]INO [facility], 1987-08 #### [facility] ([id number]) [address] [place] [address] 05617 CO2 [Moles/Vol] 23 mmol/L Normal 22-32 [facility] Comment on above: Performed By: #### Shakeel [facility], 1987-08 #### [facility] ([id number]) [address] [place] [address] 17029 Creatinine [Mass/Vol] 0.61 mg/dL Normal 0.40-1.00 [facility] Comment on above: Result Comment: METH OD TRACEABLE TO IDMS STANDARD Performed By: #### C BARAK [facility], 1987-08 #### [facility] ([id number]) [address] [place] [address] 97606 eGFR (CKD-EPI) NON-RACE DEPENDENT >90 Normal >59 [facility] Comment on above: Result Comment: Reported eGFR is based on the CKD-EPI 2020 equation that does not use a race coefficient. Performed By: #### C BARAK [facility], 1987-08 #### [facility] ([id number]) [address] [place] [address] 41788 Glucose [Mass/Vol] 92 mg/dL Normal 65-99 [facility] Comment on above: Performed By: #### C BARAK [facility], 1987-08 #### [facility] ([id number]) [address] [place] [address] Potassium [Moles/Vol] 3.6 mmol/L Normal 3.5-5.0 [facility] Comment on above: Performed By: #### C BARAK [facility], 1987-08 #### [facility] ([id number]) [address] [place] [address] 15840 Protein [Mass/Vol] 7.1 g/dL Normal 6.0-8.0 [facility] Comment on above: Performed By: #### Shakeel [facility]INO [facility], 1987-08 #### [facility] ([id number]) [address] [place] [address] 69183 Sodium [Moles/Vol] 139 mmol/L Normal 134-146 [facility] Comment on above: Performed By: #### Shakeel [facility]INO [facility], 1987-08 #### [facility] ([id number]) [address] [place] [address] 71473 Urea nitrogen [Mass/Vol] 13 mg/dL Normal 5-23 [facility] Comment on above: Performed By: #### Shakeel [facility]INO [facility], 1987-08 #### [facility] ([id number]) [address] [place] [address] 93470 CRP [Mass/Vol]on 05-01-2024 C REACTIVE PROTEIN 1.4 mg/dL High 0.000-0.744 [facility] Comment on above: Performed By: #### Shakeel [facility]INO [facility], 1987-08 #### [facility] ([id number]) [address] [place] [address] 42539 HCG ( test) Ql (U)o n 05-01-2024 Beta HCG ( test) Ql (U) Negative Normal NEG [facility] Comment on above: Performed By: #### 2 106-3 #### [facility] ([id number]) [address] [place] [address] 36213 URINE CULTUREon 05-01-2024 Bacteria identified Cx Nom (U) CULTURE RESULTS <10,000 ORGANISMS/ML NORMAL URO GENITAL JONNY Normal [facility] Comment on above: Performed By: #### 6 30-4 #### [facility] ([id number]) [address] [place] [address], [address] [place] [address] URN MACROSCOPIC NURon 2024 BILIRUBIN NEHA Negative Normal NEG [facility] Comment on above: Performed By: #### N UM #### [facility] ([id number]) [address] [place] [address] 34841 BLOOD/HGB NEHA Negative Normal NEG [facility] Comment on above: Performed By: #### N UM #### [facility] ([id number]) [address] [place] [address] [id number] GLUCOSE NEHA Negative Normal NEG [facility] Comment on above: Performed By: #### N UM #### [facility] ([id number]) [address] [place] [address] [id number] KETONES NEHA Negative Normal NEG [facility] Comment on above: Performed By: #### N UM #### [facility] ([id number]) [address] [place] [address] 14497 LEUKOCYTE ESTERASE NEHA Negative Normal NEG [facility] Comment on above: Performed By: #### N UM #### [facility] ([id number]) [address] [place] [address] [id number] NITRITE NEHA Negative Normal NEG [facility] Comment on above: Performed By: #### N UM #### [facility] ([id number]) [address] [place] [address] [id number] PH NEHA 6.5 Normal 5.0-8.5 [facility] Comment on above: Performed By: #### N UM #### [facility] ([id number]) [address] [place] [address] [id number] PROTEIN NEHA Negative Normal NEG [facility] Comment on above: Performed By: #### N UM #### [facility] ([id number]) [address] [place] [address] SPECIFIC GRAVITY NEHA >=1.030 Normal 1.003-1.035 [facility] Comment on above: Performed By: #### N UM #### [facility] ([id number]) [address] [place] [address] UROBILINOGEN NEHA 0.2 eu/dL Normal <1.1 [facility] Comment on above: Performed By: #### N UM #### [facility] ([id number]) [address] [place] [address] US PELVIC WITH TRANSVAGINAL AND DUPLEXon 05-01-2024 US PELVIC WITH TRANSVAGINAL AND DUPLEX US PELVIC WITH TRANSVAGINAL AND DUPLEX CLINICAL INFORMATION: A 23-year-old female with the history of pelvic pain for one week. Over in torsion is suspected. TECHNIQUE: Real-time transabdominal and transvaginal sonographic evaluation of the pelvis was performed with sandy scale and color flow imaging. Transabdominal imaging performed to evaluate for extra adnexal pelvic pathology. Transvaginal imaging performed for better delineation of the adnexal and endometrial contents. Real time sandy scale, color flow imaging and duplex spectral Doppler waveform analysis evaluation was performed of the major arterial inflow and venous outflow structures of the ovaries with arterial and venous spectral waveforms obtained and reviewed in view of the clinical history of Evaluate for Ovarian Torsion . Duplex spectral Doppler document arterial and venous spectral waveforms documented within the major arterial inflow and venous outflow of both ovaries. Arterial and venous Doppler duplex spectral waveforms were evaluated. COMPARISON: No relevant prior studies available. FINDINGS: Uterus measures 8.7 x 4.5 x 5.5 cm. Endometrial echo stripe thickness was a 1.4 cm. Cervix appears normal. No focal mass is seen in the uterine wall. Right ovary may just 2.7 x 2.0 x 2.4 cm. Left ovary may just 2.6 x 2.2 x 2.6 cm. There are follicles in the both ovaries. No other adnexal mass is identified. Color Doppler study reveals presence of the arterial and venous color Doppler flow without evidence of torsion. The arterial and venous waveforms are within normal limits. There is of free fluid in the cul-de-sac. IMPRESSION: * Normal uterus. * Normal ovaries with follicles. No evidence of adnexal mass or ovarian torsion. * Small amount of free fluid is seen in the cul-de-sac. Finalized by Gigi Alves MD on 05/01/2024 1:36 PM Normal [facility] VAGINITIS PANEL PCRon 2024 VAGINITIS PANEL PCR BACT. VAGINOSIS DNA Detected (qualifier value) Qualitative results are reported based on detection and quantitation of targeted organism markers which include: Lactobacillus spp. (L. crispatus and L. jensenii), Gardnerella vaginalis, Atopobium vaginae, Bacterial Vaginosis Associated Bacteria-2 (BVAB-2) and Megasphaera-1 YANG SPECIES DNA Not detected (qualifier value) Yang species not detected include: C. albicans, C. tropicalis, C. parapsilosis or C. dubliniensis YANG KRUSEI DNA Not detected (qualifier value) No Yang krusei detected YANG GLABRATA DNA Not detected (qualifier value) No Yang glabrata detected TRICHOMONAS VAG DNA Not detected (qualifier value) No Trichomonas vaginalis detected NOTE BD MAX Vaginal Panel has not been evaluated for patients under 18 years old. Results for these patients should be reviewed and assessed in accordance with clinical presentation to determine patient diagnosis. Normal [facility] Comment on above: Performed By: #### V PPCR #### [facility] ([id number]) [address] [place] [address], [address] [place] [address] Coding Summaryon 04-29-2024 Coding Summary HTMLBase 64 QpythkwaXBt6dIl+PGhlY WQ+ZY6IJSBmF87mkTNnkP 6fC6GMRLoKLayqBRBOLTf QPyTzttWrXK3juRGdRFEe IC8+AH2iSAQfMiosqPAyu 5G9rZU4J41uxw4mKMvypD X8PJSwEgEflbleg5rklYa 6IDcuNmluOyBt RJRwqL73BWP0tF56Yv21d CHcyUHuk7axhIq0CdJeAV KvPKW8iWroORzjn0CnQYQ nH00iyJYjg6D7 OECbeXrwfYQlHbXnpYS7n H1mYSavhdvop0qkkqtdWe t5fw52yRDpr3E6iGY9R7M qliG5LUYkbSSk MvcadJKYiH9tuuegp2ggo vgyIsUmUXNaBXh1GKk5FE DufHrdZaSeLF50BLN1XCZ gcbExU0DzLTJf uZdfOgG0g9V6Ot1KD7RSB iatC0KXXVNTCRvbsJM+PC 62fw56Z6HjJugdTzn9VGI dWKJ1mBY9qT1b NFVpAGwup5U4gSM0G0Xwb aJlke4ev3yhQXFeHQweU5 2ovYSrf3W5UOEtuLQ7OZM dsQqxOuFowO53 Oyc+PDDpqNyub2ZnDguvt 8lnc8lgnGe1EtgnVWOvpu TqtEnqKJM0b5ZlPc7kTYH opAC9nML0xA1g ZdMoCmD0GEvbM910OoWfp YKcDtpqD06uR8EwaPT+PH AkUui2UBWkfZfdLU9fL3G hZGRpbmctbGVm lWazNN4rCVZjxzcsXNUjx G3iBYRlV6p4VtGrCxT7RZ rwQ8FdJYSvstmeYq83aE7 eJaLtQsP7XFvn U0BtojR1XZMyxWPiEElyO OC2Q63xs8J4AVUgSVNkPT X6hGE0cL4ciMzkodpuoSS mdDsgdmVydGlj GGqvLXoyK889QZWlrVxmW kNvZGluZyBEYXRlOiAgMD EvMjIvMjAyNTwvdGQ+PHR mOOO5pFyzZSJm tLYrWXwuSn2qzWxygDcwG Y7vKJDbrvuaFCDctE3yVL YtnKZorFoqJS3iAOUhgtq lt670SkQhIPX8 HMQpcQAwJ1LnkS3jOvUsQ BQkZZFjS4MhbLUqNBxaW5 93IFfpZxB1HTBjquUhR8V sLWFsaWduOiB0 b4H8Ap1Iz5WcueluH8Znv ZRpUvJsFozkOLb9U2IwLt wvdHI+SG66HQLhIP34YVd 5BIY8iMguSTic UYIlM7AbiM4oYgYkKXAzY GRkOyc+PHRhYmxlIHdpZH RoPScxMDAlJyBzdHlsZT0 cHj1ySFBdGWEm kJcwqDDtZjLnu1nlNPWrY BouNZ2wzZbyO8NiqBF3UO Ujw2a5Qz46F11eJ3JeoPI +FGDwgCQ1tPJ1 eH7sNfFyMoV4BSvjU421L iKpiLVhTadgr3ytz3eolS e7JqZ7FVWlgnRlcLfcFOF 0l3SrWa88F48g IHdpZHRoPSIxNSUiIHZhb Kmuvr7fkW0zHt2+PGNvbC D7yCK6fB2fOkUdEgZ3JAj iT715NcKmbWBu Bgxul9dvb6envFy7FlMtK WXooqFeqBydWZT2o8JrTq 82S8WlzRoei2DxUhi2wn9 0fXZpd2E2nUE3 J8RdQQLgbhwgfRNjaYjjU E8cJUBzolhpLJScoK3wPW JbQ7h9JmSmDdN0WUlaQ4C ofhI9ZNRquCZi TANztBFBgK3nhqnuv9hsg gtyQrRqWEEdDJx4VHy9GC LbuQiaQpErIUT4JeW9IWL 5yIOtsC2dtNjt uqgmrV7dNtg+QTA5cSPcj NKTWD5bWodufHM+PHRkIH V0tQnnKOnqXBUsqG9fUPW mB2p0CzJtOiU7 LUvhT2QtfgP8DCYfhUXpA PJlrQGSuX4aumuak9hedz eiRjYaMZWeSRy6VLu5CJZ saWduOiBsZWZ0 RqB4PKV8mXFxzH5mjZgnl ronrM3nKgb+QmlydGggRG T6VAp5L2OdDff3ZQEdyBj aOY3rzDVdDZek Tg2qsQknhSflXL3tZWSva cfod907KxStk4pxQFBuwP MdXIvoMRK0Z19am2G2CDQ lGZMdBCJ3gCF9 gN6fmAbicdzeeAZdeObuj eTpkVttBWvnCHdeM167QM OrfEbzFiTpMHj9U2OcWcp 4RVIzbGpmML8i xTCyHDnzMu0usGqyiAnhQ P4sIAEgiuadm906HbUaf8 ftPBPvhZByRXagEVR7L52 ge3P7FLZvZBJu DVW0bGS1qP9wcJhqrhcae GVmdDsgdmVydGljYWwtYW wrQ084QNMejZtpUqVkpMq 6W9YwRwa3ZJNz wPmuTY5miXPwWPjaIc3gl EgwzNlnQB1bFJTwydzue6 31CtXks2liDUTjhZKwOCq nOWA8V51ee5T9 POHgFCOaPSN7dFV4oL3dx GlnbjogbGVmdDsgdmVydG haFOzqYLrkY877WNOznXv nPlBhdGllbnQg QIlaSRs0N1AfSgzjnOW+P J17BZYhAE58vFAedNGmv5 hauBt4ByWvAAPyFFV3tDw kAQjgk9WvKIWu C34hxXSmj3D9GMKuhQroq LQwZvOtwKL8yJ3oQRgthk wnh0tthbmuWsjrw5uiqi6 6hT73B58tPNnd ZHRoPSIzMCUiIHZhbGlnb r7ofN0pAn4+YMSyiEF4wW J2wU6aGCVpDpV6EVztT54 9InRvcCIvPjxj c3cwp2jdbXp8DsR9EHVgw qDneUrqWFU5a9QcGr98R9 9sIHdpZHRoPSIyMCUiIHZ ruSzupd9meG8c Ii8+DIOzaNG5xMG9cQ2cC wExAzT5LZsjF450MnOhmT VfRfueA21jH3SqhYS+PHR iHid8VPEbfQrh ND0qbIHuCMznHv7oJGB6L dMzSdYdSYrtP0ThBJScqu wbaoceiZX1LVHvIAQrzO1 5At8peEvnAACr gLDPkK0lsngqy4zsupqqS uZmTGYaAAz4KEh6ZEMobT wnAmHiBEQ4TvZ4RIQ2gOV sqU9cvNasyluh pB1zN9JvBLXshvcoFk54b P7fItPeZqQ1YCzwUkm+R0 nKDdQYWCacG4gCCQJAWZo TVW2HCQvbrTA+ FCToGNZ9iQopQGfeWAWzw C4bQTJpV8z2UaWoHaX3CR viV7EoAQQbvdntPl74tG6 nTcZnWuY4LAzp M1InpgJ4SFIbwBVdEXmiN VI4D91lq1W9PQLvIOCkIV J6iIM3mA9usFdenxaxyKZ mdDsgdmVydGlj FVqeMWduV759PUNabWukK iB5GuEzHmHtDKA8C8TsTm k8UXZjiOccDQ5chKAgFBu gQe6nxNabxErw JV3uJVLhkjqiSANxlK8dH LKybLEjcRchUK3uTYOpoq ibe758DvWkEAT1MBSsvFB vA4WywA8mRqMh XSRpBNXiB5DkgYRrEOfxE 903VFimOnK5PVKsyrHxJ3 HsPMDgpDjrHdW5v3J4Ye9 yMiBZZWFyczwv dGQ+NERcLAU9gApiOFbdY FCzvI9oLQZsX4l5XfUuFm D7RYwvQ2LjNUDwqwdiQu4 8tN0jKxLdCvN6 TGreD5EdteP4AMUqbWQuF LonHPH6Q21lp1E2TZCnGT DoGVX4bWT4dJ3byEvajth gbGVmdDsgdmVy pBzuOAofDFnnM439ADXrj DsnPkZFTUFMRTwvdGQ+PH FeJXU3jAzjKFsaGIBsiO3 pGPLxY8e8ChCy HuS4QWqdP0PnPELjhhqmC c56oH2gVzFqMwS4YCbiI9 CttoK5BVKssXZfCRtaVXT 0Z82mz5K2SXCv HJYaMUE8dAX8aT9xdGgsz jogbGVmdDsgdmVydGljYW qnURenK267YNZimUoyJjA rYYLtCK9yzOqq dGQ+VN38as86R9DgPadtR ei3IREdFJS4lEV4nS3nBZ ObAQnka4Q4kGS9Z4XiasY hgo4wq2isHVKe UQfsL04ltDLoi4K5KNYnw CP8LZZnoZcdHiBzqH41Nw c+YJEyvYeuo9TtVihtd5c dn3iujMe4AeJp WSSkhqJcjYxyBNQ7g0DpD s20S31zRWefASIvWBAfPE VcYOSqmGcnls9glR9dNs5 +BBKnlIO2pNM9 oU8bBoCbVwZ6CJdkD925X mNagKAeJogyy1jtp0fimX d4EmAsGSDszdSdaGmhWKI 5w3UqUp02Y5Le cGcfy6EzLwd9ak00uJHjl 5Y3bXP2J6QdDXFggviueX PzqOsxAP1iMBHwnlwpVLR slF3hBAOdH0m2 LuBuDkK3ZTbfD8QikaH9V NLkoAZiDFHbvFYGfS1yom hgy6bncjtvTrRtPAYdVCq 1HGo4SHHxxKlg HaVuBBE5MeA1KYP5oYOdk W6yiCxgukfayV6mPui+UG k5j4xsnNFzAU1vdKY1OU1 8DP19iXFkz6X1 xAL1V3FlHFXgimsrntsbz XX1KFMzLMSanM20Ko0saL ofUd2dMSIiPVS0NPMdoLI aY9CwrZ2kOaHf TUNhLXCmI2DqhUPzGRrfH 766QJokClT0QIYqaiFvR9 WyYNXpuPjiJhE9v2F3Rp6 KHP58YN15BM20 dZMkx5A6bJF1F4SsBCStn kiwahjkcWI7XFWuVTGozV 53Ed8ovJkzGa7hLZLuRFQ 9YLMqcKFdZ2Rc tF8qBoAnLHCaEFVoG9Odh NZoHRddT293VXfwLvS4JB HprfXzR6AsCVPtoFqlMhA 1d8Y8Rz8WFk04 GA97XS26xVCet3O7sAW6X 1QiZJNksifigccwdFB9KP QjQRQihG20Od3tiLgfLx0 sGHJdEXD5HKJf eNWrQ9XwuJ0vNeZpARStY REpW1VrgVPsOJxwZ821DN oaQlG3HADojgYfV4FlHHD yvQpwYtL3h9W7 Ep8CTMmvlqj6J7EvRaccn HI+YA32XUBzJA20uSAxbR Hew8kjoTz2SnLmFYEtGIO 9hPqiYXmql3Wv ZXI (more content not included)... [facility] XR CHEST 1 VWon 01-15-2025 XR CHEST 1 VW XR CHEST 1 VW Portable chest: HISTORY: Cough and fever. The chest was obtained. Right upper lobe density is most likely represent granulomas. Lungs otherwise clear. There is no cardiac contour abnormality. No effusion or pneumothorax. IMPRESSION: No acute findings. Finalized by Yvan Oseguera MD on 04/22/2024 1:52 PM Normal [facility] ED Clinical Summaryon 2024 ED Clinical Summary [facility] Emergency Department [address] [place] [id number] ED Clinical Summary PERSON INFORMATION Name: LIA DESAI Age: 23 Years Sex: FEMALE : 2000 MRN: Acct#: Visit Reason: Body aches; Cough; FEVER, COUGH Arrival: 04/19/2024 08:50:39 Discharge: 04/19/2024 09:24:00 LOS: 000 00:34 Check In: 04/19/2024 08:50:39 Checkout:04/19/2024 09:24:00 Address: [address] [place], [place] [address] PCP: Provider, Unlisted PROVIDER INFORMATION Provider Role Assigned Unassigned Abner aHrvey MD ED Provider 04/19/2024 09:05:18 Jayne Zuñiga LOAN MANAGER Nurse 04/19/2024 09:05:51 VITALS INFORMATION Vital Sign Triage Latest Temperature Tympanic Temperature Temporal Artery 36.4 DegC Pulse Rate 77 bpm 77 bpm O2 Sat 99 % 99 % Respiratory Rate 18 br/min 18 br/min Blood Pressure /74 mmHg /74 mmHg MEDICAL INFORMATION Medications Given: Allergy Information: Adhesive Bandage; Zithromax PHYSICIAN DOCUMENTATION Patient: LIA DESAI Age: 23 years Sex: FEMALE : 2000 Associated Diagnoses: Viral URI with cough Author: Abner Harvey MD Basic Information Time seen: Date & time 04/19/2024 09:10:00. History source: Patient. Arrival mode: Private vehicle. History limitation: None. Additional information: Chief Complaint from Nursing Triage Note : Chief Complaint 04/19/2024 9:02 EST Chief Complaint Patient arrives with c/o headache, body aches, sore throat, fever, and dry cough that started last night. . History of Present Illness The patient presents with cough. 23-year-old female presented to ER for evaluation of headache, body ache, sore throat, fever and cough. Nasal congested -moist quality. Onset of symptoms yesterday. Woke up with it. Some cough without production. Stated that she did a home COVID test, thought the results were equivocal. Recall that her mother had COVID 2 weeks ago. Local influenza is very high Review of Systems Constitutional symptoms: Fever. Skin symptoms: No rash, ENMT symptoms: Sore throat, nasal congestion. Respiratory symptoms: Cough. Cardiovascular symptoms: No chest pain, Gastrointestinal symptoms: No abdominal pain, no vomiting, no diarrhea. Genitourinary symptoms: No dysuria, Musculoskeletal symptoms: Muscle pain. Neurologic symptoms: Headache. Health Status Allergies: Allergic Reactions (Selected) Mild Adhesive Bandage- No reactions were documented. Unknown Zithromax- No reactions were documented.. Medications: (Selected) Prescriptions Prescribed Spring Saline Mist 0.65% nasal spray: 2 spray(s), !-Nasal, QID, for 7 day(s), 1 EA, 0 Refill(s) metroNIDAZOLE 0.75% vaginal gel with applicator: 1 jamel, Vaginal, Once, 70 gm, 0 Refill(s). Past Medical/ Family/ Social History Medical history: Resolved Disease caused by 2019 novel coronavirus ([id number]): Onset on 11/23/2020 at 20 years. Resolved. Comments: 11/23/2020 CDT 16:07 CDT - SYSTEM Problem added by Rule (IC_COVID19_AUTO_PROB CAMI) following 2019 Novel Coronavirus (CoVID-19), MILY L from Nasopharyngeal Swab collected on 22-NOV-2020 16:44:00 EDT tested positive for COVID-19. no history ([id number]): Resolved. Contact dermatitis (36108301): Resolved. Pharyngitis ([id number]): Resolved. Cough ([id number]): Resolved., Reviewed as documented in chart. Surgical history: Tonsillectomy and adenoidectomy ([id number])., Reviewed as documented in chart. Family history: No family history items have been selected or recorded., Reviewed as documented in chart. Social history: Social & Psychosocial Habits Alcohol 03/01/2023 Alcohol Use: Current Frequency: 1-2 times per month 01/28/2024 Alcohol Use: Current Frequency: 1-2 times per month 03/20/2024 Alcohol Use: Current Frequency: 1-2 times per month 04/19/2024 Alcohol Use: Current Frequency: 1-2 times per month Substance Use 11/15/2022 Substance use: Current Type: Marijuana Frequency: 1-2 times per week 02/14/2023 Substance use: Current Type: Marijuana Frequency: Several times per day Comment: States vapes marijuana about 4 hits/day - 03/07/2022 14:36 - Munira SANTOS, Chloé 04/15/2023 Substance use: Current Type: Marijuana 01/28/2024 Substance use: Past 03/20/2024 Substance use: Past 04/19/2024 Substance use: Current Type: Marijuana Tobacco 02/26/2023 Smoking tobacco use: Never tobacco user 01/28/2024 Smoking tobacco use: Never tobacco user 03/20/2024 Smoking tobacco use: Never tobacco user 04/19/2024 Smoking tobacco use: Never tobacco user Electronic Cigarette/Vaping 11/15/2022 Electronic Cigarette Use: Use, within last 90 days Type: Cannabinoid infused Use per Day: 26-50 Inhales/day 04/15/2023 Electronic Cigarette Use: Use, within last 90 days Type: Cannabinoid infused 01/28/2024 Electronic Cigarette Use: Never 03/20/2024 Electronic Cigarette Use: Former use, quit more bill 04/19/2024 Electronic Cigarette Use: Never , R (more content not included)... [facility] ED Note - Physicianon 2024 ED Note - Physician Patient: LIA DESAI Age: 23 years Sex: FEMALE : 2000 Associated Diagnoses: Viral URI with cough Author: Abner Harvey MD Basic Information Time seen: Date & time 04/19/2024 09:10:00. History source: Patient. Arrival mode: Private vehicle. History limitation: None. Additional information: Chief Complaint from Nursing Triage Note : Chief Complaint 04/19/2024 9:02 EST Chief Complaint Patient arrives with c/o headache, body aches, sore throat, fever, and dry cough that started last night. . History of Present Illness The patient presents with cough. 23-year-old female presented to ER for evaluation of headache, body ache, sore throat, fever and cough. Nasal congested -moist quality. Onset of symptoms yesterday. Woke up with it. Some cough without production. Stated that she did a home COVID test, thought the results were equivocal. Recall that her mother had COVID 2 weeks ago. Local influenza is very high Review of Systems Constitutional symptoms: Fever. Skin symptoms: No rash, ENMT symptoms: Sore throat, nasal congestion. Respiratory symptoms: Cough. Cardiovascular symptoms: No chest pain, Gastrointestinal symptoms: No abdominal pain, no vomiting, no diarrhea. Genitourinary symptoms: No dysuria, Musculoskeletal symptoms: Muscle pain. Neurologic symptoms: Headache. Health Status Allergies: Allergic Reactions (Selected) Mild Adhesive Bandage- No reactions were documented. Unknown Zithromax- No reactions were documented.. Medications: (Selected) Prescriptions Prescribed Spring Saline Mist 0.65% nasal spray: 2 spray(s), !-Nasal, QID, for 7 day(s), 1 EA, 0 Refill(s) metroNIDAZOLE 0.75% vaginal gel with applicator: 1 jamel, Vaginal, Once, 70 gm, 0 Refill(s). Past Medical/ Family/ Social History Medical history: Resolved Disease caused by 2019 novel coronavirus ([id number]): Onset on 11/23/2020 at 20 years. Resolved. Comments: 11/23/2020 CDT 16:07 CDT - SYSTEM Problem added by Rule (IC_COVID19_AUTO_PROB CAMI) following 2019 Novel Coronavirus (CoVID-19), MILY L from Nasopharyngeal Swab collected on 22-NOV-2020 16:44:00 EDT tested positive for COVID-19. no history ([id number]): Resolved. Contact dermatitis ([id number]): Resolved. Pharyngitis ([id number]): Resolved. Cough (37212395): Resolved., Reviewed as documented in chart. Surgical history: Tonsillectomy and adenoidectomy ([id number])., Reviewed as documented in chart. Family history: No family history items have been selected or recorded., Reviewed as documented in chart. Social history: Social & Psychosocial Habits Alcohol 03/01/2023 Alcohol Use: Current Frequency: 1-2 times per month 01/28/2024 Alcohol Use: Current Frequency: 1-2 times per month 03/20/2024 Alcohol Use: Current Frequency: 1-2 times per month 04/19/2024 Alcohol Use: Current Frequency: 1-2 times per month Substance Use 11/15/2022 Substance use: Current Type: Marijuana Frequency: 1-2 times per week 02/14/2023 Substance use: Current Type: Marijuana Frequency: Several times per day Comment: States vapes marijuana about 4 hits/day - 03/07/2022 14:36 - Chloé Lombardo RN 04/15/2023 Substance use: Current Type: Marijuana 01/28/2024 Substance use: Past 03/20/2024 Substance use: Past 04/19/2024 Substance use: Current Type: Marijuana Tobacco 02/26/2023 Smoking tobacco use: Never tobacco user 01/28/2024 Smoking tobacco use: Never tobacco user 03/20/2024 Smoking tobacco use: Never tobacco user 04/19/2024 Smoking tobacco use: Never tobacco user Electronic Cigarette/Vaping 11/15/2022 Electronic Cigarette Use: Use, within last 90 days Type: Cannabinoid infused Use per Day: 26-50 Inhales/day 04/15/2023 Electronic Cigarette Use: Use, within last 90 days Type: Cannabinoid infused 01/28/2024 Electronic Cigarette Use: Never 03/20/2024 Electronic Cigarette Use: Former use, quit more bill 04/19/2024 Electronic Cigarette Use: Never , Reviewed as documented in chart. Problem list: Active Problems (3) Acute depression Anxiety Chronic post-traumatic stress disorder (PTSD) , per nurse's notes. Physical Examination Vital Signs Vital Signs 04/19/2024 9:02 EST Temperature Temporal Artery 36.4 DegC Peripheral Pulse Rate 77 bpm Respiratory Rate 18 br/min Systolic Blood Pressure 117 mmHg Diastolic Blood Pressure 74 mmHg SpO2 99 % Oxygen Therapy Room air . Measurements 04/19/2024 9:02 EST Height 170 cm Weight 74.84 kg Weight Dosing 74.840 kg Body Mass Index Measured 25.9 kg/m2 . General: Alert, no acute distress, Awake, alert, appropriate, normal voice. No distress. Well-hydrated, well appearing. Skin: Warm, dry, intact, normal for ethnicity. Head: Normocephalic, atraumatic. Neck: Supple, trachea midline. Eye: Pupils are equal, round and reactive to light, extraocular movements are intact, normal conjunctiva. Ears, nose, mouth and throat: Tympanic membranes clear, or (more content not included)... Normal [facility] ED Patient Summaryon 025 ED Patient Summary [facility] - Emergency Department [address] [id number] PATIENT DISCHARGE INSTRUCTIONS Patient Information Name: LIA DESAI Age: 23 Years Date of : 2000 Reason For Visit: Body aches; Cough; FEVER, COUGH Arrival Time: 04/19/2024 08:50:39 Primary Care Physician: Provider, Unlisted Attending Physician: Abner Harvey MD Comment: Visit Diagnosis: Diagnoses This Visit Body aches ([id number]) Cough ([id number]) Viral URI with cough (J06.9) The Pharmacy at [facility] is open Saturday through Saturday from 9A [...] alcohol and/or drug addiction problems; contact the [facility] 29/10 Crisis Hotline -Text 3XCSQ ev 040387. If you received any narcotics, sedation, or [...] Follow up with primary care provider Within 5 to 7 days Comments: You were seen in the emergency department for evaluation of cough and cold symptoms. Your examination suggest this is from an viral upper respiratory infection. This will likely to improve over time. No antibiotic will be necessary as your immune system will likely get rid of the infection. Your symptoms may still be contagious to other people around you. Use universal precautions to avoid spreading the germs. Take 2 tablets acetaminophen or 2 tablets of ibuprofen 3 times a day as needed for aches or discomfort. Use throat lozenges or cough drops to help with throat irritation and cough. Contact your assigned on-call doctor for a follow-up appointment if you do not have a local family doctor. Alternatively, you may follow-up with the [facility] if you are not able to see a PCP in the recommended time. Continue with the current treatment as outlined by the ER physician, Dr Harvey. Called the emergency department if you have any questions concern. Return to the emergency department if you have significant symptoms that concerns you. Medication Information: The exam and treatment you received today in the [facility] Emergency Department were for an urgent problem and are not intended as complete care. It is important for you to follow up with a doctor, nurse practitioner, or physician?s dyer assistant for ongoing care. If your symptoms [...] so we can reach you if necessary. [facility] Emergency Department has provided you with a complete list of medications post discharge. Please inform your certified pharmacy technician/provider of your visit and for further instruction on these medications. Any specific questions regarding your chronic medications and dosages should be discussed with your primary care physician(s) and/or pharmacist. Additional medications on your home medication list not specifically addressed. Please contact the ordering physician if you have questions about these medications. metroNIDAZOLE topical (metroNIDAZOLE 0.75% vaginal gel with applicator) 1 jamel Vaginal once. Refills: 0. sodium chloride nasal (Spring Saline Mist 0.65% nasal spray) 2 spray(s) Nasal 4 times a day for 7 Days. Refills: 0. Visit Information Allergies: Substance Reaction Symptoms Type Comments Zithromax Drug Adhesive Bandage Other Vital Signs: Vitals and Measurements this Visit (last charted value for your 04/19/2024 visit) Vital Signs This Visit Temperature Temporal Artery: 36.4 DegC Peripheral Pulse Rate: 77 bpm Respiratory Ra (more content not included)... [facility] Progress Note - Nurseon 04-08 Progress Note - Nurse Patient walks to room 6. Patient is alert and oriented X 4. Patient is here for a cough, body aches, fever and sore throat since yesterday. Pt. states she tested herself for covid yesterday and had a faint positive. [Electronically Signed on: 04/19/2024 09:11 EST] Zara July DANIELLE [Verified on: 04/19/2024 09:11 EST] Zara July DANIELLE [facility] Coding Summaryon 03-24-2024 Coding Summary HTMLBase 64 FaxkeznfBGn9eKm+PGhlY WQ+JU0YKAMjR49erOIijI 1bO9LFUUcRQptrXGSPVVg JDyPfexXhCX9qvLXlNTDs IC8+KX5oKDOxWlytbLRvt 8U2fXB6Q28xpz2pRUqxqT J3IEDcAvTxtcqyd7bihDg 6IDcuNmluOyBt BNBecP55KJL5lV74Vi74s VJreKUyj8xpfSy3ZxMoXV FuYHF6hAmbIXbmi0ExBJY xW74mzTWbi6W8 EINbaNgjhIMlVoBuzVY1v A6vGYsmhjhic4yzpooxQg h5gv42qTGhk6Q8sGA0S0N lozA2FUSafIMj NnahpLIBjQ7tmuoql9ooj jmvUqQfKYLzKAx1HGk2SL IhuFswNnGgVX73SNA7ZKK rmyCrR3IpTDUn dYtsBpU7o3W5An5MU8CUU itxC0LTHOUFOBjcmRS+PC 60zx00Q5SoXjqeSfh1YOT xLJR8wFU7jM1f EQEeHRbdh3V4pUV7B5Eev qDkgu9xe0tbDGBmCJfaX4 3moCZdk0P5KNNdpNZ0GXX dmLnrYyOnmZ82 Oyc+IORzaZswu5FtYfzyr 5gxd1mduMr0UlomKAUvlf OmjRgiBLM9y9ZtPc0dWTI arSV3pXZ7jV8w RdBsYkK2FUdjU763XiSer YYiEdswW02yY6AccJZ+PH ZhMuv8YUZlzNgxJS1qE7S hZGRpbmctbGVm uUikIC6kHZHfnjokNPAzq X2wZSZaJ4r0NzAkCxJ8ZY zvL1TgIFTqqtnpVg92lV0 lRmAeMbH1QZen J2RtqfB1MDFyaQYoCRbdQ EW4D12ru3W0TMVoCJHuFV G2oCC1kF3uaPlztyeexAG mdDsgdmVydGlj CEcwPWrtV287HNJlmOveN kNvZGluZyBEYXRlOiAgMT IvMTcvMjAyNDwvdGQ+PHR rFNV8kIfdVITs sXCuTCkxZg5ayQfoeSieY V0aICSyexxbUVIsoJ3kFT CrxGNlaKuhHA7dWLTxato ts973ApWtYXN5 UFHnvKEhT8RwiF9bUnVuN TMgNKNwO7HbmJGvLClqE8 17ICinWpG6XTVhzhUxG5V sLWFsaWduOiB0 c0B7Oo7Hi8EvzdurO6Jyo WLfDuBoPpzjLGs7V3LnHk wvdHI+DN07NTKqWE31EQf 4QJF7eBwkHEqh NIMiX9QuaR5eRoYoBCJyN GRkOyc+PHRhYmxlIHdpZH RoPScxMDAlJyBzdHlsZT0 iJs6dHLKbYXJe mWdeqQRmOeEtc1rbROHeX YmyDG6woCfrA3YbkBZ4OI Enf6l3Vc30P39oD1WexRZ +UYZhkUV0nQT5 uF8mBmKrFkA5YOuaT607U pFoaSLiNygrl6ubf4jckN i4XpQ0UGMmlpFaoUpiPCW 0f9TlDu06O54t IHdpZHRoPSIxNSUiIHZhb Jfczv1qlM4ySx0+PGNvbC O5cXG3eI0zIqIoVyC1GGq dU114JfSwxNRo Zhnlt6yut7dahFr9LeAtP DGfqcHaeIxwPKT3z1XsHg 72W7HojNboo6NjSxl0kb4 9aCWct2S5hDT1 P4CzWQVogycfyJZxyPedZ Z5zKRVrgdyyZKWqyQ4zNG FgN1j9AaQqHkJ1HFavB4U gqpJ5OSRrfWYf POXtzKHUyE6iyrdvt8jia cjaZeFaCKOrMXi4BHb2LD VydInaEbJeTBB4HnD2IWS 4uEXzdN4vwGhi mvqtuT8vSrn+YUK7mZHdu HXFQA5nEsvlrAS+PHRkIH J6sVvzHGjbNILntL9nBAK fS8q4NjEcQpY2 DRgoA8VmvpV8PRXbjOZbZ JZpcBNBiZ4ajyoaf5hame rcPhFpKFYsNZt3GXv5XDY saWduOiBsZWZ0 CwK0XYW8bZAhlF6qnGfiy qoggR1gAds+QmlydGggRG C7OJl8K3LkDgy0IVPvxTe gIQ7mfOLaPEdw Oh8atVkysMfqZY8bDIXoi ucqx587LtUgy9anSHNtmP NnKEcsGTB4U81mw2F4TWI gXZXtKRY3oPC6 wK8biAxwgdwtuDOjtOlqi qXtyZmcGElaECtrC930ZW BspAjjFvMlGTa5Z5ObPdo 9MOPdjKmcXY5u vDGgVZqkAn4ziDifgIdbD I4qFDGehzkzs167CqGrk0 mvVTWhuFVhUXgzDWR9U87 gg3J3TUKeGUBf JFV3oAX7qC5tpQgvivzhc GVmdDsgdmVydGljYWwtYW poV528LIDmkWdwZmYceGi 7W6YrSli0UYAk nIvkBP0ooEIwMPmiSg5fh WmjoRgoBO1bGRHxmmzaw5 27AnCwp3drHBZajBGsEEn jYZQ6C62zx5E0 NHRiAVTaTSX1zDA4iF5hl GlnbjogbGVmdDsgdmVydG ghGMysMLfiV965CQUhtWs nPlBhdGllbnQg QThdBAe8G6IiDgomqPN+P A36HMKyBK63eWWvfBZlt7 cxhBu8UlFbOYPyXTC7oSt aEMnzb0ZmBPXn Q97zuMSvw5T1GOXabYchk HBxDbRfoEC2tU0kWBmjmh eot7riyyuvLjjyc0spzw5 6bS29H24qNDgv ZHRoPSIzMCUiIHZhbGlnb r3tzO4kFl1+PBRqqXS4cJ D4aR9kCXFjYhU5OZilM76 9InRvcCIvPjxj f4vzu8vydOf9NsQ3IYZet yGnyLqrGZM3a4PmQq76R9 9sIHdpZHRoPSIyMCUiIHZ zhJbshr0fmU9t Ii8+GMUthLU9tRN8gI1dM mXfUgV6MUjvI451TdXwyL BdDtlrS22hO6HevNI+PHR sOxk3ZYObzEol DD0xeRBrYSmsQx1zPYC7U sXmXoPkJCdxI7WjHQBeib ufiwbfsJF1KMTiAQEzwY0 0Gg8nnRthALJn sQTNtR8nrvkvw0qukiseW mYqNHLiAKa6JYt9JOLunV jkZjOtPIF9GxV1MPB2yML vtZ9rbDazysvh eP9tJ2CaUXGyniemTu62g L6eZuRiGqW2QLrlRms+R0 nWIdPBOBoeA9oXZMDFATj GOB5TSBucqPB+ EYPiQOP8rSefMJurQOUkj L9cSPInH3m0HhTuXcK7XI dnH2IjBUQdwduiEj43jF2 mHiClYyQ2WIeq O8BiiaO5TUHpaRQzHCsyK PW6I18cj9T5RMZuKLUqLG Q9qBD3uA7hmNxynjxurJB mdDsgdmVydGlj SOcgCGltQ327BYEhwDupZ bP7AdUhFzEqEGE2G2PmWu w7DGTdaYuhHQ6ymYKzLMl uOc4lpYpylCpo CR5hRLRwwfibLNBkqF8zI FPsgBOhyLesAZ1sKQFore tqk952ErJcICG3VFTcpZW iB1ZrcB1cZbIu BLLeNKDiA9WzwMNyBWluA 228FVdbDdK6FPYsizVjR1 RjBZDuuXpiZsN5d8K5Ns4 yMiBZZWFyczwv dGQ+PJXgJTF8jUfwMYmiK CMuiO7tTOAbU6r2FbEwYs O7WOjyM9PuLGZmzkwoNn2 0oG4qItMrEnC8 GEhiJ0XvbdI2TCXajYEcW QsgNKK8R67qw3P2NBMeAF DqGAS4rHM8jJ4ffRloxbx gbGVmdDsgdmVy kIiyXPydJBlmU215CFEfk DsnPkZFTUFMRTwvdGQ+PH GhRBW7sRjqQCviLLJivR3 sKECwT3u6DrCu HfW7GXyuN0SoSVYzrqzfR d59iU3jCjNsXeY5VUwiG2 NpdaJ9IUOaiTOaOJrwOGR 3P00qf0H5LFAr RZCrLTD5gAJ4fL3zgCmyy jogbGVmdDsgdmVydGljYW pgYHocS062OOSqwBzpMuJ sESRmHH2taItx dGQ+FJ65kk56W9UfJuvkY ss0HIEzQPY7fOF8pM3sVA HlZGxkc5N1kUO2E8ArlrD lce2ti3sxOACf HCagX83qkREus3O4ZITji IZ6LILwbIyqSjTxpO74Gu c+DMEztZkej1NaLaksq1d ih1mddIm1GdCo FFWqyfIxgZwuEGE0j1KoM e76X89rDMjhMOKdRLZbZA LfNNKtkGigqg7oiK8mNu0 +TFPakWE9fNN9 kU1sGxUfMjV4UNljE648Z vUdvUHzOrkdq6bjd3tciK v2BtElXHMfbgGwnRigFKW 7z4VnVd20T0Ko sCxel4YwWhh2rd20xPJpa 8O8vKV0D0BbIVCgemfecH WagPhmKO7aXFFlolpvVNZ ipA9uXBDfK1n6 YxUiPsK4WLusJ4SgmtA4W ZFpfYWqFHOxtPZWxW3swg hya7uoqucdRiRkZOTnQLa 1KQs2EJVzfDfy VvAnJVE2PiF7RXP1bLQzy Y9noMnemlkxvW3bTea+UG f6e2aqoUXoLW4kePC9KV4 1QR46pWFej1C2 uHE0G2CjTIFuhuvvuiygb DE7YRLkMZVoqU38Am3jlA zvBk6qIXZzHNR1XWEpqAJ rL3WdnX9xFxOx WGGpSQHxX6VaeMBrFWvzP 740IOmrJvB3VAKcxsMkU8 QiXUZhpUdtWpI7s7M4Qf6 VUA38RT43CW24 rPLyl3E4oFS6S1JlAADrb ifcikatlIN8WKRgCOHbjX 32Wj6uzUuvMy6hOIJcJXX 3HKKqgETgH9Mv jX5fTsThABHfJHNhH8Wng MDqWYwxU556EGbdLgR2BO VutjGbS7DfMJCbkMpcPsS 0k6P3Dj1EIi09 CV92GZ23jQKzs4G5uOY6I 4NqWLLrhhwpyywhvUK0KM InZTDpfW55Wq9ioXwqIa1 lLBVwGZA9LONt bBOyY1UfeZ7hLaSsCESdC JOjV7AfiXJtAYbfT564UY zcUpU6GEOqbwJcI9BkOMH pgDpyPoL5g0V9 Sa4FLAojffr5P1OcGwifm HI+GI18CALrFT03qMRlvS Zox4ycoQr9FhTvOILzWUS 9wUfmZLdfl0Ns ZXI (more content not included)... Normal [facility] .Auto Diff 03-20-2024 Auto [place] % 8 % Normal 04-19 [facility] Comment on above: Performed By: #### 1 [id number], [id number], 6076936, [id number] ####[facility] (DEFAULT)[address] [place] [address] 78876 Baso Abs# 0.1 x10 Normal 0.0-0.2 [facility] Comment on above: Performed By: #### 1 [id number], [id number], 4676654, [id number] ####[facility] (DEFAULT)[address] [place] [address] 85832 Basophils/100 WBC (Bld) 1.0 % Normal 0.2-2.0 [facility] Comment on above: Performed By: #### 1 [id number], 4992044, 8998841, [id number] ####[facility] (DEFAULT)[address] [place] [address] Eos Abs# 0.1 x10 Normal 0.0-0.4 [facility] Comment on above: Performed By: #### 1 [id number], 5444777, 1687943, [id number] ####[facility] (DEFAULT)[address] [place] [address] Eosinophils/100 WBC (Bld) 0.9 % Normal 0.9-4.0 [facility] Comment on above: Performed By: #### 1 [id number], 1695824, 2276462, [id number] ####[facility] (DEFAULT)[address] [place] [address] 63310 Lymph Abs# 2.5 x10 Normal 1.3-2.9 [facility] Comment on above: Performed By: #### 1 [id number], 8191126, 8104532, [id number] ####[facility] (DEFAULT)[address] [place] [address] 49554 Lymphocytes/100 WBC (Bld) 32 % Normal 14-48 [facility] Comment on above: Performed By: #### 1 [id number], 4960335, 0082243, [id number] ####[facility] (DEFAULT)[address] [place] [address] 48752 [place] Abs# 0.6 x10 Normal 0.0-0.8 [facility] Comment on above: Performed By: #### 1 [id number], 5739636, 5135519, [id number] ####[facility] (DEFAULT)[address] [place] [address] Neut Abs# 4.5 x10 Normal 1.5-9.2 [facility] Comment on above: Performed By: #### 1 [id number], 5901504, 4110200, 82787728 ####[facility] (DEFAULT)[address] [place] [address] Neutrophils/100 WBC (Bld) 58 % Normal 44-88 [facility] Comment on above: Performed By: #### 1 [id number], 7666491, 2432392, 74613416 ####[facility] (DEFAULT)[address] [place] [address] CBC w/ Auto Diffon Erythrocyte distribution width (RBC) [Ratio] 15.2 % High 11.5-15.0 [facility] Comment on above: Performed By: #### 1 [id number], 9992044, 3316399, [id number] ####[facility] (DEFAULT)[address] [place] [address] Hematocrit (Bld) [Volume fraction] 39.9 % Normal 33.7-40.4 [facility] Comment on above: Performed By: #### 1 [id number], 6026617, 3873734, 98531632 ####[facility] (DEFAULT)[address] [place] [address] Hemoglobin (Bld) [Mass/Vol] 13.3 g/dL Normal 11.3-15.9 [facility] Comment on above: Performed By: #### 1 [id number], 6659883, 6738690, [id number] ####[facility] (DEFAULT)[address] [place] [address] Man Diff? Auto Invalid Interpretation Code [facility] Comment on above: Performed By: #### 1 [id number], 2975938, 9499516, 94048567 ####[facility] (DEFAULT)[address] [place] [address] MCH (RBC) [Entitic mass] 27 pg Normal 24-34 [facility] Comment on above: Performed By: #### 1 [id number], 3072284, 8264561, 13439704 ####[facility] (DEFAULT)[address] [place] [address] MCHC (RBC) [Mass/Vol] 33 g/dL Normal 26-37 [facility] Comment on above: Performed By: #### 1 [id number], 2174794, 3553410, 52760943 ####[facility] (DEFAULT)[address] [place] [address] MCV (RBC) [Entitic vol] 81 fL Normal 81-100 [facility] Comment on above: Performed By: #### 1 [id number], 7847256, 8475017, 14753753 ####[facility] (DEFAULT)[address] [place] [address] Platelet 350 x10 Normal 138-427 [facility] Comment on above: Performed By: #### 1 [id number], 7180340, 8830834, [id number] ####[facility] (DEFAULT)[address] [place] [address] Platelet mean volume (Bld) [Entitic vol] 8.4 fL Normal 6.3-10.2 [facility] Comment on above: Performed By: #### 1 [id number], 0374387, 6897679, 47496313 ####[facility] (DEFAULT)[address] [place] [address] RBC 4.90 x10 Normal 3.70-5.30 [facility] Comment on above: Performed By: #### 1 [id number], 4103467, 0165701, 39852840 ####[facility] (DEFAULT)[address] [place] [address] WBC 7.7 x10 Normal 3.5-10.5 [facility] Comment on above: Performed By: #### 1 [id number], 5117264, 3067513, 93017388 ####[facility] (DEFAULT)[address] [place] [address] CMP Standardon 03-20-2024 eGFR Non AA >60 Invalid Interpretation Code [facility] Comment on above: Performed By: #### 1 [id number], 3539415, 7685290, 73539328 ####[facility] (DEFAULT)[address] [place] [address] 42336 eGFR AA >60 Invalid Interpretation Code [facility] Comment on above: Performed By: #### 1 [id number], 5581349, 9123294, 73016298 ####[facility] (DEFAULT)[address] [place] [address] Albumin [Mass/Vol] 3.9 g/dL Normal 3.5-5.0 [facility] Comment on above: Performed By: #### 1 [id number], 9987164, 4013191, 58324768 ####[facility] (DEFAULT)[address] [place] [address] Albumin/Globulin [Mass ratio] 1.0 {ratio} Low 1.4-2.6 [facility] Comment on above: Performed By: #### 1 [id number], 2330476, 0507787, 86112574 ####[facility] (DEFAULT)[address] [place] [address] Alk Phos 111 IU/L High 32-91 [facility] Comment on above: Performed By: #### 1 [id number], 5625913, 7216742, 86900073 ####[facility] (DEFAULT)[address] [place] [address] ALT [Catalytic activity/Vol] 24.0 U/L Normal 14.0-54.0 [facility] Comment on above: Performed By: #### 1 [id number], 9605941, 1438512, 71226077 ####[facility] (DEFAULT)[address] [place] [address] AST [Catalytic activity/Vol] 22 U/L Normal 15-41 [facility] Comment on above: Performed By: #### 1 [id number], 0963413, 6096716, 02666700 ####[facility] (DEFAULT)[address] [place] [address] Bili Total 0.6 mg/dL Normal 0.3-1.2 [facility] Comment on above: Performed By: #### 1 [id number], 1797479, 8447187, 53430997 ####[facility] (DEFAULT)[address] [place] [address] 42740 Creatinine [Mass/Vol] 0.70 mg/dL Normal 0.60-1.30 [facility] Comment on above: Performed By: #### 1 [id number], 7170231, 2478820, 14982881 ####[facility] (DEFAULT)[address] [place] [address] 73041 Globulin (S) [Mass/Vol] 3.6 g/dL Normal 1.5-4.3 [facility] Comment on above: Performed By: #### 1 [id number], 3566129, 6432220, 04461043 ####[facility] (DEFAULT)[address] [place] [address] 14146 Osmolality 272 mOsm/L Invalid Interpretation Code [facility] Comment on above: Performed By: #### 1 [id number], 8358278, 6665063, 47984095 ####[facility] (DEFAULT)[address] [place] [address] 90026 Protein [Mass/Vol] 7.5 g/dL Normal 6.5-8.1 [facility] Comment on above: Performed By: #### 1 [id number], 9297607, 3431733, 39173071 ####[facility] (DEFAULT)[address] [place] [address] 78526 Urea nitrogen [Mass/Vol] 14 mg/dL Normal 8-26 [facility] Comment on above: Performed By: #### 1 [id number], 1078601, 7438059, 70085061 ####[facility] (DEFAULT)[address] [place] [address] 54957 Urea nitrogen/Creatinine [Mass ratio] 20.0 mg/mg High 4.6-16.2 [facility] Comment on above: Performed By: #### 1 [id number], 8677207, 9438116, 60182655 ####[facility] (DEFAULT)[address] [place] [address] 12011 Anion gap [Moles/Vol] 14.2 mmol/L Normal 5.0-19.0 [facility] Comment on above: Performed By: #### 1 [id number], 4566578, 4569590, 28915199 ####[facility] (DEFAULT)[address] [place] [address] 99678 Calcium [Mass/Vol] 8.7 mg/dL Low 8.9-10.3 [facility] Comment on above: Performed By: #### 1 [id number], 5017828, 2496822, 41365710 ####[facility] (DEFAULT)[address] [place] [address] 65895 Chloride [Moles/Vol] 104 mmol/L Normal 101-111 [facility] Comment on above: Performed By: #### 1 [id number], 7846228, 5457375, 62954698 ####[facility] (DEFAULT)[address] [place] [address] 86201 CO2 [Moles/Vol] 22 mmol/L Normal 21-32 [facility] Comment on above: Performed By: #### 1 [id number], 5173830, 0597482, 03943457 ####[facility] (DEFAULT)[address] [place] [address] 73036 Glucose [Mass/Vol] 96.0 mg/dL Normal 74.0-118.0 [facility] Comment on above: Performed By: #### 1 [id number], 6485670, 0826801, 65241700 ####[facility] (DEFAULT)[address] [place] [address] 36474 Potassium [Moles/Vol] 4.2 mmol/L Normal 3.6-5.1 [facility] Comment on above: Performed By: #### 1 [id number], 7625883, 5876338, 72165542 ####[facility] (DEFAULT)[address] [place] [address] 38955 Sodium [Moles/Vol] 136.0 mmol/L Normal 136.0-144.0 [facility] Comment on above: Performed By: #### 1 [id number], 0641510, 2607398, 62244284 ####[facility] (DEFAULT)[address] [place] [address] Abdomen/Pelvis w/o Contra ston 03-20-2024 CT Abdomen/Pelvis w/o Contrast EXAMINATION: CT Abdomen/Pelvis w/o Contrast HISTORY: Abdominal pain,left flank COMPARISON: No relevant comparison available. TECHNIQUE: Axial, Coronal, and Sagittal images were created without IV contrast. Dose reduction techniques were achieved by using automated exposure control and/or adjustment of mA and/or kV according to patient size and/or use of iterative reconstruction technique. FINDINGS: LUNG BASES: No visible pulmonary or pleural disease. LIVER: No enlargement, atrophy, abnormal density, or significant focal lesion. BILIARY: No dilatation or calcification. PANCREAS: No lesion, fluid collection, ductal dilatation, or atrophy. SPLEEN: No enlargement or focal lesion. ADRENALS: No mass or enlargement. KIDNEYS: No mass, obstruction, or calcification. BOWEL/MESENTERY: No visible mass, obstruction, or bowel wall thickening. Normal appendix AORTA/VASCULAR: No aneurysm or dissection. RETROPERITONEUM: No mass or adenopathy. LYMPH NODES: No adenopathy. URINARY BLADDER: No visible focal wall thickening, lesion, or calculus. PELVIC ORGANS: No visible mass. Pelvic organs appropriate for patient age. ABDOMINAL WALL: No mass or hernia. BONES: No bony lesion or fracture. Bilateral L5 pars fractures with 4 mm anterolisthesis of L5 on S1 OTHER: Negative. IMPRESSION: No acute intraperitoneal abnormality. Final Dictated by: Christian Kate MD Dictated DT/TM: 03/20/24 9:29 Signed (Electronic Signature): Christian Kate MD 03/20/24 9:36 am Technologist: JEN PATEL Normal [facility] ED Clinical Summaryon 2023 ED Clinical Summary [facility] - Emergency Department [address] [place] [address] ED Clinical Summary PERSON INFORMATION Name: LIA DESAI Age: 23 Years Sex: FEMALE : 2000 MRN: Acct#: Visit Reason: Back pain; LOW BACK PAIN Arrival: 03/20/2024 06:28:58 Discharge: 03/20/2024 09:56:00 LOS: 000 03:28 Check In: 03/20/2024 06:28:58 Checkout:03/20/2024 09:56:00 Address: [address] [place], [place] [id number] PCP: Provider, Unlisted PROVIDER INFORMATION Provider Role Assigned Unassigned Oneil Littlejohn DO ED Provider 03/20/2024 06:30:59 Sudha Virgen LOAN MANAGER Nurse 03/20/2024 07:13:25 Joelle Nava LOAN MANAGER Nurse 03/20/2024 07:40:00 Abner Harvey MD ED Provider 03/20/2024 08:31:42 VITALS INFORMATION Vital Sign Triage Latest Temperature Tympanic Temperature Temporal Artery 37.1 DegC Pulse Rate 78 bpm 63 bpm O2 Sat 99 % 100 % Respiratory Rate 20 br/min 20 br/min Blood Pressure /83 mmHg /83 mmHg MEDICAL INFORMATION Medications Given: Medication Dose Route ketorolac 60 mg Intramuscular ondansetron 4 mg Oral Allergy Information: Adhesive Bandage; Zithromax PHYSICIAN DOCUMENTATION Patient: LIA DESAI Age: 23 years Sex: FEMALE : 2000 Associated Diagnoses: Back pain; Left flank pain Author: Oneil Littlejohn DO Basic Information Time seen: Date & time 03/20/2024 06:40:00. History source: Patient. Arrival mode: Private vehicle, walking. History limitation: None. History of Present Illness The patient presents with back pain. Review of Systems Constitutional symptoms: This patient presents to the emergency room for evaluation of left flank pain which started yesterday, associated with frequency, and the discomfort pretty uncomfortable over there, did not take any medicine for found it was worse this morning and decided come to the emergency room. She has not had any right flank pain she has not had any vomiting she denies any fever she has a urinary tract infections in the past but she states she has never had this kind of discomfort associated with urinary tract infections she denies sore throat cough congestion difficulty breathing or anterior abdominal pain she states that she delivered about 3 months ago, she is just off her period and she is not . The discomfort is some worse to move, but not always so. She denies any previous kidney stones, states kidney stones are not in her family as well. She states she takes no medicines on a regular basis. She arrived by private vehicle, she states her boyfriend drove her here today. On exam, she is pleasant alert, she appears uncomfortable, with discomfort to the left CVA, with no rash noted there. She is ambulatory, good eye contact, neck is supple, no anterior posterior supraclavicular nodes, her HEENT exam is otherwise normal, good eye contact, mild discomfort, with CVA discomfort on the left. Heart rate and rhythm is regular no murmur, PMI left chest, her abdomen is soft discomfort, and her extremities are nonswollen nontender, neurologic exam symmetric and intact, and her psychiatric evaluation is relative to the chief complaint. Her skin is warm and dry.. Health Status Allergies: Allergic Reactions (Selected) Mild Adhesive Bandage- No reactions were documented. Unknown Zithromax- No reactions were documented.. Past Medical/ Family/ Social History Problem list: Active Problems (3) Acute depression Anxiety Chronic post-traumatic stress disorder (PTSD) . Medical Decision Making Orders Launch Orders Laboratory: Urinalysis with Culture, if indicated Standard (Order): Urine, Stat collect, 03/20/2024 6:51 EST, Nurse collect Test Urine 1 (Order): Urine, Stat collect, 03/20/2024 6:52 EST, Nurse collect Triage Panel 12 (Order): Urine, Stat collect, 03/20/2024 6:52 EST, Nurse collect, Clean Catch, Launch Orders Laboratory: CMP Standard (Order): Blood, Stat collect, 03/20/2024 7:12 EST, Lab Collect CBC w/ Auto Diff (Order): Blood, Stat collect, 03/20/2024 7:12 EST, Lab Collect Lipase Level (Order): Blood, Stat collect, 03/20/2024 7:12 EST, Lab Collect Pharmacy: ketorolac (Order): 60 mg, Intramuscular, Once ondansetron (Order): 4 mg, Oral, Once. Impression and Plan Diagnosis Back pain (PNED [id number], Reason For Visit, Emergency medicine, Medical) Left flank pain ([id number] R10.9, Discharge, Medical) Plan Disposition: Patient care transitioned to: Time: 03/20/2024 08:00:00, Abner Harvey MD, Change of shift.. DISCHARGE INFORMATION: Discharge Disposition: Home Discharge Location: Home PATIENT EDUCATION INFORMATION Instructions: Bacterial Vaginosis, Aylx-pr-Attu; Acute Back Pain, Adult Follow-Up: With: Address: When: Follow up with primary care provider Within 3 to 5 days Comments: Reviewed discharge care instruction. Continue with therapy as outlined by Dr. Harvey. Take your medication as (more content not included)... [facility] ED Note - Physicianon 2023 ED Note - Physician Patient: LIA DESAI Age: 23 years Sex: FEMALE : 2000 Associated Diagnoses: Acute abdominal pain in left flank; Acute left-sided back pain; Left flank pain; Bacterial vaginosis Author: Abner Harvey MD Basic Information Time seen: Date & time 03/20/2024 08:52:00. Additional information: Chief Complaint from Nursing Triage Note : Chief Complaint 03/20/2024 7:13 EST Chief Complaint Pt arrived with lower back pain, pt states this started at 0545. Pt also has urinary frequency. . History of Present Illness I have assumed care of the patient from Dr. Littlejohn, who has discussed the clinical presentation, work-up, and ED course thus far. I have reviewed the patient?s medical record and ED course and agree with all aspects of care thus far. 23-year-old female presented to ER for evaluation of acute left low back pain, left side pain, left paraspinous pain. Had been seen by previous ER physician. Transition to my care at shift change. Indicated that CT was being done. I reviewed the chart. No CT abdomen pelvis ordered. CBC, reviewed, normal. Chemistry normal. Urinalysis negative except for blood. Patient is 3 months . . Had just been completed few days ago according to patient Urinalysis shows some clue cells CT abdomen pelvis ordered. Results negative for acute process per my interpretation. Radiology interpretation is also negative. Patient's pain secondary to musculoskeletal. I had reviewed with patient results. Examined patient. Discussed regarding treatment plan. Supportive care recommended for the back pain. No significant emergent issues. In regards to the clue cells, will start her on metronidazole gel suppository. Patient had reported previous BV in the past. No specific ongoing severe symptoms but there is some mild intermittent occasional discharge. Metronidazole gel appears appropriate for this course of action Patient recommended follow-up with PCP for recheck. She indicated understanding regarding treatment plans and follow-up Health Status Allergies: Allergic Reactions (Selected) Mild Adhesive Bandage- No reactions were documented. Unknown Zithromax- No reactions were documented.. Medications: (Selected) Prescriptions Prescribed Spring Saline Mist 0.65% nasal spray: 2 spray(s), !-Nasal, QID, for 7 day(s), 1 EA, 0 Refill(s). Past Medical/ Family/ Social History Medical history: Resolved Disease caused by 2019 novel coronavirus ([id number]): Onset on 11/23/2020 at 20 years. Resolved. Comments: 11/23/2020 CDT 16:07 CDT - SYSTEM Problem added by Rule (IC_COVID19_AUTO_PROB CAMI) following 2019 Novel Coronavirus (CoVID-19), MILY L from Nasopharyngeal Swab collected on 22-NOV-2020 16:44:00 EDT tested positive for COVID-19. no history ([id number]): Resolved. Contact dermatitis ([id number]): Resolved. Pharyngitis ([id number]): Resolved. Cough ([id number]): Resolved.. Surgical history: Tonsillectomy and adenoidectomy ([id number]).. Family history: No family history items have been selected or recorded.. Social history: Social & Psychosocial Habits Alcohol 03/01/2023 Alcohol Use: Current Frequency: 1-2 times per month 01/28/2024 Alcohol Use: Current Frequency: 1-2 times per month 03/20/2024 Alcohol Use: Current Frequency: 1-2 times per month Substance Use 11/15/2022 Substance use: Current Type: Marijuana Frequency: 1-2 times per week 02/14/2023 Substance use: Current Type: Marijuana Frequency: Several times per day Comment: States vapes marijuana about 4 hits/day - 03/07/2022 14:36 - Munira SANTOS, Chloé 04/15/2023 Substance use: Current Type: Marijuana 01/28/2024 Substance use: Past 03/20/2024 Substance use: Past Tobacco 02/26/2023 Smoking tobacco use: Never tobacco user 01/28/2024 Smoking tobacco use: Never tobacco user 03/20/2024 Smoking tobacco use: Never tobacco user Electronic Cigarette/Vaping 11/15/2022 Electronic Cigarette Use: Use, within last 90 days Type: Cannabinoid infused Use per Day: 26-50 Inhales/day 04/15/2023 Electronic Cigarette Use: Use, within last 90 days Type: Cannabinoid infused 01/28/2024 Electronic Cigarette Use: Never 03/20/2024 Electronic Cigarette Use: Former use, quit more bill . Problem list: Active Problems (3) Acute depression Anxiety Chronic post-traumatic stress disorder (PTSD) . Physical Examination Vital Signs Vital Signs 03/20/2024 8:30 EST Systolic Blood Pressure 131 mmHg HI Diastolic Blood Pressure 69 mmHg Mean Arterial Pressure, Cuff 90 mmHg Mean Arterial Pressure Cuff 91 mmHg 03/20/2024 7:45 EST Systolic Blood Pressure 133 mmHg HI Diastolic Blood Pressure 55 mmHg LOW Mean Arterial Pressure, Cuff 81 mmHg Mean Arterial Pressure Cuff 77 mmHg 03/20/2024 7:22 EST Peripheral Pulse Rate 80 bpm SpO2 99 % 03/20/2024 7:22 EST Mean Arterial Pressure, Cuff 79 mmHg 03/20/2024 7:15 EST SpO2 99 % 03/20/2024 7:15 EST Peripheral Pulse Rate 71 bpm (more content not included)... Normal [facility] ED Note - Physician Patient: LIA DESAI Age: 23 years Sex: FEMALE : 2000 Associated Diagnoses: Back pain; Left flank pain Author: Oneil Littlejohn DO Basic Information Time seen: Date & time 03/20/2024 06:40:00. History source: Patient. Arrival mode: Private vehicle, walking. History limitation: None. History of Present Illness The patient presents with back pain. Review of Systems Constitutional symptoms: This patient presents to the emergency room for evaluation of left flank pain which started yesterday, associated with frequency, and the discomfort pretty uncomfortable over there, did not take any medicine for found it was worse this morning and decided come to the emergency room. She has not had any right flank pain she has not had any vomiting she denies any fever she has a urinary tract infections in the past but she states she has never had this kind of discomfort associated with urinary tract infections she denies sore throat cough congestion difficulty breathing or anterior abdominal pain she states that she delivered about 3 months ago, she is just off her period and she is not . The discomfort is some worse to move, but not always so. She denies any previous kidney stones, states kidney stones are not in her family as well. She states she takes no medicines on a regular basis. She arrived by private vehicle, she states her boyfriend drove her here today. On exam, she is pleasant alert, she appears uncomfortable, with discomfort to the left CVA, with no rash noted there. She is ambulatory, good eye contact, neck is supple, no anterior posterior supraclavicular nodes, her HEENT exam is otherwise normal, good eye contact, mild discomfort, with CVA discomfort on the left. Heart rate and rhythm is regular no murmur, PMI left chest, her abdomen is soft discomfort, and her extremities are nonswollen nontender, neurologic exam symmetric and intact, and her psychiatric evaluation is relative to the chief complaint. Her skin is warm and dry.. Health Status Allergies: Allergic Reactions (Selected) Mild Adhesive Bandage- No reactions were documented. Unknown Zithromax- No reactions were documented.. Past Medical/ Family/ Social History Problem list: Active Problems (3) Acute depression Anxiety Chronic post-traumatic stress disorder (PTSD) . Medical Decision Making Orders Launch Orders Laboratory: Urinalysis with Culture, if indicated Standard (Order): Urine, Stat collect, 03/20/2024 6:51 EST, Nurse collect Test Urine 1 (Order): Urine, Stat collect, 03/20/2024 6:52 EST, Nurse collect Triage Panel 12 (Order): Urine, Stat collect, 03/20/2024 6:52 EST, Nurse collect, Clean Catch, Launch Orders Laboratory: CMP Standard (Order): Blood, Stat collect, 03/20/2024 7:12 EST, Lab Collect CBC w/ Auto Diff (Order): Blood, Stat collect, 03/20/2024 7:12 EST, Lab Collect Lipase Level (Order): Blood, Stat collect, 03/20/2024 7:12 EST, Lab Collect Pharmacy: ketorolac (Order): 60 mg, Intramuscular, Once ondansetron (Order): 4 mg, Oral, Once. Impression and Plan Diagnosis Back pain (PNED [id number], Reason For Visit, Emergency medicine, Medical) Left flank pain ([id number] R10.9, Discharge, Medical) Plan Disposition: Patient care transitioned to: Time: 03/20/2024 08:00:00, Abner Harvey MD, Change of shift.. [Electronically Signed on: 03/20/2024 07:33 EST] Oneil Littlejohn DO [Verified on: 03/20/2024 07:33 EST] Oneil Littlejohn DO Normal [facility] ED Note-Nursingon 03-20-2024 ED Note-Nursing PT. C/O back pain that started throughout the night and into this morning. PT. states that she woke up around 0545. Pt. does have urinary frequency. Pt. rates pain /10. Pt. is A&OX . PT. has a steady gait. Normal [facility] ED Patient Summaryon 024 ED Patient Summary [facility] - Emergency Department [address] [place] [address] PATIENT DISCHARGE INSTRUCTIONS Patient Information Name: LIA DESAI Age: 23 Years Date of : 2000 Reason For Visit: Back pain; LOW BACK PAIN Arrival Time: 03/20/2024 06:28:58 Primary Care Physician: Provider, Unlisted Attending Physician: Oneil Littlejohn DO Comment: Visit Diagnosis: Diagnoses This Visit Acute abdominal pain in left flank (R10.9) Acute left-sided back pain (M54.9) Back pain ([id number]) Bacterial vaginosis (N76.0) Left flank pain (R10.9) Other specified bacterial agents as the cause of diseases classified elsewhere (B96.89) The Pharmacy at [facility] is open Saturday through Saturday from 9A [...] alcohol and/or drug addiction problems; contact the [facility] 29/10 Crisis Hotline -Text [id number] [phone]. If you received any narcotics, sedation, or [...] provider Within 3 to 5 days Comments: Reviewed discharge care instruction. Continue with therapy as outlined by Dr. Harvey. Take your medication as prescribed. Contact your family doctor or PCP within the recommended time. Return to ER for any worsening symptoms especially any symptom that concerns you. Medication Information: The exam and treatment you received today in the [facility] Emergency Department were for an urgent problem and are not intended as complete care. It is important for you to follow up with a doctor, nurse practitioner, or physician?s dyer assistant for ongoing care. If your symptoms [...] so we can reach you if necessary. [facility] Emergency Department has provided you with a complete list of medications post discharge. Please inform your certified pharmacy technician/provider of your visit and for further instruction on these medications. Any specific questions regarding your chronic medications and dosages should be discussed with your primary care physician(s) and/or pharmacist. New Medications [facility], [address] [place], [place] [id number], [phone] metroNIDAZOLE topical (metroNIDAZOLE 0.75% vaginal gel with applicator) 1 jamel Vaginal once. Refills: 0. Additional medications on your home medication list not specifically addressed. Please contact the ordering physician if you have questions about these medications. sodium chloride nasal (Spring Saline Mist 0.65% nasal spray) 2 spray(s) Nasal 4 times a day for 7 Days. Refills: 0. Visit Information Allergies: Substance Reaction Symptoms Type Comments Zithromax Drug Adhesive Bandage Other Vital Signs: Vitals and Measurements this Visit (last charted value for your 03/20/2024 visit) Vital Signs This Visit Temperature Temporal Artery: 37.1 DegC Peripheral Pulse Rate: 63 bpm Respiratory Rate: 20 br/min Systolic Blood Pressure: 126 mmHg Diastolic Blood Pressure: 55 mmHg Mean Arterial Pressure, Cuff-Calculation: 79 mmHg Mean Arterial Pressure Cuff-Monitor: 83 mmHg SpO2: 100 % Oxygen Therapy: Room air Measurements This Visit Height/Length Measured: 170.18 cm Weight Measured: 120.66 kg Weight Dosin.660 kg Body Mass Index: 41.66 kg/m2 Problems List: Problem Onset Comments Acute depression Anxiety Chronic post-traumatic stress disorder (PTSD) Patient Education Bacterial Vaginosis (Inser (more content not included)... Normal [facility] Lipaseon 03-20-2024 Lipase Level 27.0 IU/L Normal 22.0-51.0 [facility] Comment on above: Performed By: #### 1 [id number], [id number] ####[facility] (DEFAULT)[address] [place] [address] Test Urine 1on U Preg Negative Normal [facility] Comment on above: Performed By: #### 5 [id number], [id number], [id number], [id number] ####[facility] (DEFAULT)[address] [place] [address] U Preg Internal Control Pass Normal [facility] Comment on above: Performed By: #### 5 [id number], [id number], [id number], [id number] ####[facility] (DEFAULT)[address] [place] [address] Triage Panel 03-20-2024 Triage Internal Control Pass Normal [facility] Comment on above: Performed By: #### 5 [id number], [id number], [id number], [id number] ####[facility] (DEFAULT)[address] [place] [address]752 U Amph Scr Negative [facility] Comment on above: Performed By: #### 5 [id number], [id number], [id number], [id number] ####[facility] (DEFAULT)[address] [place] [address] 31695 U Deirdre Scr Negative [facility] Comment on above: Performed By: #### 5 [id number], [id number], [id number], [id number] ####[facility] (DEFAULT)[address] [place] [address] 00795 U Benzodia Scr Negative [facility] Comment on above: Performed By: #### 5 [id number], [id number], [id number], [id number] ####[facility] (DEFAULT)[address] [place] [address] 42203 U Cannab Scrn Positive [facility] Comment on above: Performed By: #### 5 [id number], [id number], [id number], [id number] ####[facility] (DEFAULT)[address] [place] [address] 91733 U Cocaine Scr Negative [facility] Comment on above: Performed By: #### 5 [id number], [id number], [id number], [id number] ####[facility] (DEFAULT)[address] [place] [address] 87882 U Methadone Scr Negative [facility] Comment on above: Performed By: #### 5 [id number], [id number], [id number], [id number] ####[facility] (DEFAULT)[address] [place] [address] 66124 U Methamp Scrn Negative [facility] Comment on above: Performed By: #### 5 [id number], [id number], [id number], [id number] ####[facility] (DEFAULT)[address] [place] [address] 66277 U Opiate Scr Negative [facility] Comment on above: Performed By: #### 5 [id number], [id number], [id number], [id number] ####[facility] (DEFAULT)[address] [place] [address] 29308 U Oxycod Scr Negative [facility] Comment on above: Performed By: #### 5 [id number], [id number], [id number], [id number] ####[facility] (DEFAULT)[address] [place] [address] 82620 U Phencyclidine Scr Negative Normal [facility] Comment on above: Performed By: #### 5 [id number], [id number], [id number], [id number] ####[facility] (DEFAULT)[address] [place] [address] 82836 U Tricyclic Antidepress Scr Negative [facility] Comment on above: Result Comment: Resu lts are to be used only for medical (ie, treatment) purposes only. Positive tests will not be sent out for confirmation. PROFILE?-V MEDTOX Scan? Drugs of Abuse Test System detects drug classes at the following cutoff concentrations: AMP Amphetamine (d-amphetamine): 500 ng/mL BAR Barbituates (Butabital): 200 ng/mL BZO Benzodiazepines (Nordiazepam): 150 ng/mL BUP Buprenorphine (Buprenorphine): 10 ng/mL KRISTINA Cocaine (Benzoylecgonine): 150 ng/mL MAMP Methamphetamine (d-Methamphetamine): 500 ng/mL MTD Methadone (Methadone): 200 ng/mL OPI Opiates (Morphine): 100 ng/mL or 2000 ng/mL OXY Oxycodone (Oxycodone): 100 ng/mL PCP Phencyclidine (Phencyclidine): 25 ng/mL PPX Propoxyphene (Norpropoxyphene): 300 ng/mL THC Cannabinoids (11-pjr-4-carboxy- -THC): 50 ng/mL TCA Tricyclic-Antidepressants (Desipramine): 300 ng/mL Performed By: #### 5 [id number], [id number], [id number], [id number] ####[facility] (DEFAULT)[address] [place] [address] UA Akpjd8ry 03-20-2024 UA Bacteria Rare [facility] Comment on above: Order Comment: Urina lysis Microscopic order added on by [employer] Rules system. Performed By: #### 5 [id number], [id number], [id number], [id number] ####[facility] (DEFAULT)[address] [place] [address] UA Comment. Clue Cells Seen [facility] Comment on above: Order Comment: Urina lysis Microscopic order added on by [employer] Expert Rules system. Performed By: #### 5 [id number], [id number], [id number], [id number] ####[facility] (DEFAULT)[address] [place] [address] UA Mucous Trace [facility] Comment on above: Order Comment: Urina lysis Microscopic order added on by [employer] Expert Rules system. Performed By: #### 5 [id number], [id number], [id number], [id number] ####[facility] (DEFAULT)[address] [place] [address] UA RBC >50 [facility] Comment on above: Order Comment: Urina lysis Microscopic order added on by [employer] Expert Rules system. Performed By: #### 5 [id number], [id number], [id number], [id number] ####[facility] (DEFAULT)[address] [place] [address] UA Squam Epi Moderate [facility] Comment on above: Order Comment: Urina lysis Microscopic order added on by [employer] Expert Rules system. Performed By: #### 5 [id number], [id number], [id number], [id number] ####[facility] (DEFAULT)[address] [place] [address] UA WBC 5-10 [facility] Comment on above: Order Comment: Urina lysis Microscopic order added on by [employer] Rules system. Performed By: #### 5 [id number], [id number], [id number], [id number] ####[facility] (DEFAULT)[address] [place] [address] UA w Culture if Ind Standard on 03-20-2024 Color (U) Yellow Normal [facility] Comment on above: Performed By: #### 5 [id number], [id number], [id number], [id number] ####[facility] (DEFAULT)[address] [place] [address] Culture? Indicated Invalid Interpretation Code [facility] Comment on above: Result Comment: Resu lt created by rule GL_MAGR_ADD_UA_CULT Result created by rule GL_MAGR_ADD_UA_CULT Result created by rule GL_MAGR_ADD_UA_CULT1 Result created by rule GL_MAGR_ADD_UA_CULT Performed By: #### 5 [id number], [id number], [id number], [id number] ####[facility] (DEFAULT)[address] [place] [address] Glucose (U) [Mass/Vol] Negative Normal [facility] Comment on above: Performed By: #### 5 [id number], [id number], [id number], [id number] ####[facility] (DEFAULT)[address] [place] [address] Ketones Ql (U) Negative Normal [facility] Comment on above: Performed By: #### 5 [id number], [id number], [id number], [id number] ####[facility] (DEFAULT)[address] [place] [address] 10128 Micro? Indicated Invalid Interpretation Code [facility] Comment on above: Result Comment: Resu lt created by rule GL_MAGR_ADD_UA_MICRO Performed By: #### 5 [id number], [id number], [id number], [id number] ####[facility] (DEFAULT)[address] [place] [address] 02763 UA Bilirubin SMALL Abnormal [facility] Comment on above: Performed By: #### 5 [id number], [id number], [id number], [id number] ####[facility] (DEFAULT)[address] [place] [address]133 UA Blood LARGE Abnormal NEGATIVE [facility] Comment on above: Performed By: #### 5 [id number], [id number], [id number], [id number] ####[facility] (DEFAULT)[address] [place] [address] UA Clarity SL CLOUDY Abnormal CLEAR [facility] Comment on above: Performed By: #### 5 [id number], [id number], [id number], [id number] ####[facility] (DEFAULT)[address] [place] [address] UA Leuk Est Negative Normal NEGATIVE [facility] Comment on above: Performed By: #### 5 [id number], [id number], [id number], [id number] ####[facility] (DEFAULT)[address] [place] [address] UA Nitrite Negative Normal NEGATIVE [facility] Comment on above: Performed By: #### 5 [id number], [id number], [id number], [id number] ####[facility] (DEFAULT)[address] [place] [address] UA pH 6.0 Normal 5-8 [facility] Comment on above: Performed By: #### 5 [id number], [id number], [id number], [id number] ####[facility] (DEFAULT)[address] [place] [address] UA Protein 30 Abnormal NEGATIVE [facility] Comment on above: Performed By: #### 5 [id number], [id number], [id number], [id number] ####[facility] (DEFAULT)[address] [place] [address] UA Spec Grav >=1.030 Normal 1.001-1.035 [facility] Comment on above: Performed By: #### 5 [id number], [id number], [id number], [id number] ####[facility] (DEFAULT)[address] [place] [address] 22264 UA Urobilinogen 0.2 mg/dL Normal 0.2-1.0 [facility] Comment on above: Performed By: #### 5 [id number], [id number], [id number], [id number] ####[facility] (DEFAULT)[address] [place] [address] 23113 Urine Source Clean Catch Normal [facility] Comment on above: Performed By: #### 5 [id number], [id number], [id number], [id number] ####[facility] (DEFAULT)[address] [place] [address]27 Breakpoint UA Normal [facility] Comment on above: Performed By: #### 5 [id number], [id number], [id number], [id number] ####[facility] (DEFAULT)[address] [place] [address] Coding Summaryon 02-11-2024 Coding Summary HTMLBase 64 IezuuhqlRCy5gZy+PGhlY WQ+NG2RSIAnU42auAXceN 2pF6GJTDeQHjaiOFJPVXh UCoLeozEyPA1opXWuKZMn IC8+FR7nWAYpOynrsYTda 1T8aIJ9C06dfa6kADkshB L2UBIfOlYlidwqp4gehWr 6IDcuNmluOyBt IIVugY02DKA6nJ41Lx97q XHeeUIrr5awwTm0LrWqBC MfPMR0nPkbGMelm0LdCSJ uG67alDWlb7G9 ATYolFhnhHXyEvUnyQB8x P8cGEuvrphjf5tqqlfcUp o2wz45lFJnm0M9nDM8X6C knpP3CERzwEBu SybdrPZTvC9xouijt3yho szlHdQmNQWcFOr8PKd9XE LolMabBfDzUS78EAT8JIG ukeHuB8EjXPLk dKbsQnD6u8Q7Bb1DE3WVV bzxF1YCDMTQWKmsgFP+PC 60vp95G2RnRdkkSmm3SGR dHPM7oDQ8cJ4r AJRaSJmfx5V4eMI3L6Zgz yZncn1wf3iiZUUmNGrgO5 7agMUps7V0WMBbzDO7RTQ twNkyPmDitG86 Oyc+KSYtiBvtz7PbIcsbb 4pou2wnmHc4RfbrKTGxaz GgfOavBWT7y7BcAn9wGEG phHT6rRT0fO3t FiYhSyE1RBaxE676ScUgb YVuWskeA17iD2TmaQF+PH XsRud4EEXjoNyyWM4zL4T hZGRpbmctbGVm fKwvHH6tAHArgulaGZAfe P1hOAOtJ3z8IlPcUjX4WF hbW2ZzJHWdvhdqNj74eV2 mDmUaThT6EOdb V7UfkcI7POIllRSeLOuyY MV7Y46rp7E8FXGpJBGqFG S5jWM4lI3idBdsilhvyJC mdDsgdmVydGlj XDilRQudX221INMvnFznU kNvZGluZyBEYXRlOiAgMT EvMDUvMjAyNDwvdGQ+PHR lSVM8bNkfMMVm bWRaUIguNd2evNjpeJovN J7xNAStxsbmXVMxiP3cVE IcmCRkuGtbAM9wTZHtrix wg099PcMsTOO3 UMWrzVHoM6LbgZ1uZkFvI SYkJDIyE4JphMYqOIfbN6 61BPzjHmS4WOLygpGpE5I sLWFsaWduOiB0 p2S9Eu1Xs7KnoutiA1Blu DCxNcFzIsmkQTy2Y2SqQn wvdHI+ZA24TDXnUR02NXv 2ZEX0fSxpJMgu MTUaJ2EdmY9pJgTmBDDrI GRkOyc+PHRhYmxlIHdpZH RoPScxMDAlJyBzdHlsZT0 iRp6wBWBkJCIi vCtryKVvFqIit1tsOJZhO RpdTT5lcFrkX7AccUT0HH Nxv1c0Zm49G61dD7UscNS +SMZkfBV1xNL3 wW0jLmFfMaG5UZqlO688J gFrcTEmQexmk5oms5szkG x0EaX8WTBytrIznTwoDAF 5p5HyJf74I21n IHdpZHRoPSIxNSUiIHZhb Uppxq7opW5jHg1+PGNvbC H5zTB3iI1mZxLiRzO1MLf hQ413QqJkzLNp Ymqvf3jok6qztDl8ZjEmO WUzlpRcdHzuMAC1v5XsMf 88A2EkyAmcx3VtYmc2vt7 2hOGpa9K0rEH6 S9VaNZPsuncmfOExbXerJ H3cDUQsblbzNOLexK9mRL DwB6o2AoOyUhX2POacF9G dmpX5AWIjiKRw BIYtzYZGoE8tgkpxr9gok cafWyYdMSAlDUq3FZk9AI AsyBklEtIbKQK4WyV6BFP 4wRYujX5nbMgw afhxxO4kUdr+TQH1wHHdu CVOVP1wQdobzGY+PHRkIH I9qMfsITjeGYJgsD3xYDB yL6w2JlBkYeP2 WOtgX3VtagL8EWIlcHYyU IQpjQZFwQ9ahxnni4cbfx umCjSeZCNtMGt7PHb4ONE saWduOiBsZWZ0 FyX6HIU3oAMukP4bhMgzh eynzP3mUli+QmlydGggRG T6GBu1L9RvAjp3JIWebXv nHO2fjNPoVAep Dm0xbJwbbNktVB2aHWSav ewjp095QdFtg7uzDOJtkX StDYsoBIZ4Q39si2Z3UXV vZQNcNYS8fLW4 zC4ynJwlftlxgWPisWplc sYkiWpnIQfqOQmkD369FH IcdBsyUkTpJYs3Y0AqJmf 0APKyjAadPO3q pRMcPVqqTx5cwBovpJqlU V1tLRUsgvbui283HeTpz0 lfGSCatGJuXXetCDB7S14 ih2S6XRYoYSTa ZOK5pRK6lB2zcNexmrbfu GVmdDsgdmVydGljYWwtYW cdV836SEGxzGzmEmSnmHn 4Z9ZxVie1OJPg jSlpTE8fkCQeNPksSe6qi VrfwWycID9xUHXakzdjh8 51FzZit1jgWOUupFGdJQb wMQV6K99of1W3 ENLhVNZfPGP5jXM5cK3oi GlnbjogbGVmdDsgdmVydG jfAIcyFHqvM587ERLvmXy nPlBhdGllbnQg ODsxIMi4N0VsBrhtiLQ+P O95OXCtHY25zOItmZAzj7 pheSf3EzGxJCRpCHX2qQo jTXqzx3WzQBPw K28blSNkl1U0BAQftQtgn OOyYgZvbES3yI6tISylwq eii9wfjxgnIgxqv3qztt0 1lF78G29lJYux ZHRoPSIzMCUiIHZhbGlnb w1igK6iVs2+PMNfyFB6tV Z3cU5wIEUyYdJ0ECvkX61 9InRvcCIvPjxj e2iot0jnjBo7AwD0MVWux kSbbFyuXOT0i0MhSd15X7 9sIHdpZHRoPSIyMCUiIHZ trCzxjn9eoG0n Ii8+DYSqoUU0yRY2eG7cK wEhLpA9PVueJ152ZjKwxX UaNkwsZ68zT2OjdDS+PHR gEze4BKEnpKes SN3dzZFkKZblZq1lOVM7P wCzLvUvQZvuK1ZaRYYggo ssjcrqlPN2GCQsPXCynD3 5Am1pgNwoTHPj sYLOtD6xbehbv5vuenodT fYaUETxNQl3ZPw2QGPzhB tgWzZlAMD4EiD6OJA4wIG ixF7ghJhzutye hH3lV0ZgWENljsmxWm10r Y4oPnChZrC0JIiqNpn+R0 aXKuULGBdmG5fLFFCPCBt DLB8AMZdcjID+ BKRdEBP9cAhfCPecMSCmz T5uLSXjB4u3QfOuQzG9MR gxR0DbQFZobtiyIg62zF1 hTrWyDwM1CUzj W1EunmB3KTAknPQzQLmyR LG1G22wx9L8EPTkRFIiDN L8vBM6lC7ytYodqilvuNO mdDsgdmVydGlj NUcoPBvwJ440MQVnwZfuD oU7HsDtFcOlNIJ1U6DzLt q9YHNjiEbcXO8amBDjZEj bKq0yaYpkeBur IN8qFCBpdrtbFKRytL5eP BAgwEDbrJccKM7dRRIkgd els354JwKwYRE3IYHvyHV yX0HtvY2gJnCt RGNmWMGhI5XfaCVaAOinO 845LXhaDuA3PCAzjzUkU6 YxLQUqwEwoOrN6k6U6Pk5 yMiBZZWFyczwv dGQ+JBDxEPJ6qDmlIAdsG PLctH4sDWCdW4d2RyEpGl U5EGgeL5YnPKSmjjhgHg3 1rC1xEsTzIcG1 SEqwT4JmbaD9TAJbeCMoX EbfRQW2P98ra9M9SROtDC KhHZZ0rPU5lE5hxMxeiqx gbGVmdDsgdmVy fYvpPQhkRVoxT664MHImn DsnPkZFTUFMRTwvdGQ+PH OcJSR5vDiwBCxzZUZoeU8 zSQMzO4j3VoWr BmC6WNzpY8YfXATmbvyfT j50qT7oCnYlPaT2ECvsC0 DeagM8RBBoeNFlHBhsNXN 0T56bw5S0JDRa GLMeSWR0iNJ6mD8ppDfry jogbGVmdDsgdmVydGljYW bkWUlkI021QISeaEofOf4 NTT41DE02L7Ek PjwvdGFibGU+PHRhYmxlI HdpZHRoPScxMDAlJyBzdH eqXY0gTw0cMVDaQNMdmKq koHEqCpXww0nh ZWFpTYbhWN8ynJcxM5Sbr TV7ETQkc5u0Kg85L63wR5 JvdXA+BARtvYH7zLC6hD2 gTeXnLoO4LWwy J184SyFgsFWkHsttv3jay 4lzeGd0UrBmYJIkerNjvV djZKB5u7DhPz68G58gSPc pZHRoPSIyMCUi IJKbkWzxym0ynF2tPh5+P MPwtXD3vLJ4sU2qPbPqUd V8RDihA823UkZnyJUxJrg wM95gM8NklSP+ KGXrHtm0WJUdiLefYY8ki AEbSToqKd0oNGI4BaZaVs CuGUijW1NiKKCurtqwrlq kjHT7FRDwEOWg jB08Wq3hbZryQi5qMVCoN OD6SFSzfXSdT2LgyV3qOa XyCIZfQBUmO7XyePWvPAb fF198APgtQmH7 WFIjlxHgF9BqHBMubNnbM tU3n7L0Nz7CtVpjcEPlJF 6sBtWbOQe8K7FiBwi2OQX gpBodEB1isRVf HEbqPu6qgRavhAcmHN9pE OBpmoaxg942ZdLyn0olUO QvmROqKKjeCKP2O65qq7A 8XZEwWFGkZGR9 qUY4rR1uzJtmgpahhVCya DsgdmVydGljYWwtYWxpZ2 09ZSPmsSomGkPNXhn0C1N cYqn0MDSefCld AL1lzDNcYBjyQo4jjCacf CjyWA8iAKGqkzjff057Ib Pou2nqPWGkdMEoRAvvJWF 8W03au2T1TZVj UGEjUQD9lPC6iS7ymKdak jogbGVmdDsgdmVydGljYW inQNvpY291TPVorCeuHm1 HMlq0V3FaFlr3 DEHcaLzsJW2ruJTgDLoaE i9fgOhrlXybNI7cZSZqki byv093WfKqe3crNJMpmMF lEChlPLV0F94f w1X6HEGrZBBxFEU1aGY5f F3jzTdfdrkepOOyzBojrc UqiXgtVUtjTSeyM914NHH vcDsnPlBheWVy OjwvdGQ+FR86xn29T9GrZ rqsSlj5MSXpKFH2vFK0uO 0cQVZgRPyvw9G1eEL5W5M xoaByth1rl4xd YXB (more content not included)... Normal [facility] C Throaton 01-30-2024 C Throat Ordered by Discern. Normal throat jonny isolated No pathogens isolated Normal [facility] Comment on above: Performed By: #### 4 [id number] #### [facility] (DEFAULT) [address] [place] [id number] ED Clinical Summaryon 2023 ED Clinical Summary [facility] ? Urgent Care [address] [place] [address] [id number] Clinical Summary PERSON INFORMATION Name: LIA DESAI Age: 23 Years Sex: FEMALE : 2000 MRN: Acct#: Visit Reason: Body aches; UC - Sore Throat; Earache; Cough; Throat pain - Adult; CONGESTION, BRYAN EAR PAIN, SORE THROAT, BODY ACHES Arrival: 01/28/2024 11:07:11 Discharge: 01/28/2024 12:39:00 LOS: 000 01:32 Check In: 01/28/2024 11:07:11 Checkout: 01/28/2024 12:39:00 Address: [address] [place] [id number] PCP: ROBERT MARRERO PROVIDER INFORMATION Provider Role Assigned Unassigned Errol Ortega ED PA 01/28/2024 11:10:09 Corrina Grant LOAN MANAGER Nurse 01/28/2024 11:19:17 VITALS INFORMATION Vital Sign Triage Latest Temperature Tympanic Temperature Temporal Artery Pulse Rate O2 Sat 98 % 98 % Respiratory Rate Blood Pressure /84 mmHg /84 mmHg MEDICAL INFORMATION Medications Given: Allergy Information: Adhesive Bandage; Zithromax PHYSICIAN DOCUMENTATION DISCHARGE INFORMATION: Discharge Disposition: Home Discharge Location: Home PATIENT EDUCATION INFORMATION Instructions: Upper Respiratory Infection, Adult Follow-Up: With: Address: When: ROBERT MARRERO [address] [id number] Business (1) Within 5 to 7 days Comments: Viral upper respiratory illness. mother. Contagious 72 hours from onset Strep, Covid, Flu negative. Vitals good today. Begin Mucinex 600mg 1 po BID x 7 days. Begin Saline nasal spray Consider humidifier or Vics salve. Return if worse in any way. DIAGNOSIS: Acute URI Patient Understands: Yes - Patient/family/caregi fozia verbalizes understanding of instructions given Comment: Normal [facility] ED Patient Summaryon 024 ED Patient Summary [facility] ? Urgent Care [address] [place] [address] [id number] PATIENT DISCHARGE INSTRUCTIONS Patient Information Name: LIA DESAI Age: 23 Years Date of : 2000 Reason For Visit: Body aches; UC - Sore Throat; Earache; Cough; Throat pain - Adult; CONGESTION, BRYAN EAR PAIN, SORE THROAT, BODY ACHES Arrival Time: 01/28/2024 11:07:11 Primary Care Physician: ROBERT MARRERO Attending Physician: Errol Ortega Comment: Patient Education With: Address: When: ROBERT CHZIO [address] [id number] Business (1) Within 5 to 7 days Comments: Viral upper respiratory illness. mother. Contagious 72 hours from onset Strep, Covid, Flu negative. Vitals good today. Begin Mucinex 600mg 1 po BID x 7 days. Begin Saline nasal spray Consider humidifier or Vics salve. Return if worse in any way. Upper Respiratory Infection, Adult An upper respiratory [...] to help relieve symptoms, such as: ? Nhqj-bqn-cssjcsj cold medicines. ? Cough suppressants. Coughing is [...] other clear broths. General instructions ? Take exvx-kor-ifwgwty and prescription medicines only as told by [...] and water are not available, use hand supervisor paper products. ? Avoid touching your mouth, face, eyes, or nose. ? Cough or sneeze into a tissue or your sleeve or elbow instead of into your hand or into the air. Contact a health care provider if: ? Y (more content not included)... Normal [facility] POCT Rapid CoV-2 (COVID-19) Antigen/ Flu A&Bon 01-28-2024 Influenza A POCT Negative Normal Negative [facility] Comment on above: Performed By: #### 9 [id number] #### [facility] (DEFAULT) [address] [place] [address] Influenza B POCT Negative Normal Negative [facility] Comment on above: Performed By: #### 9 [id number] #### [facility] (DEFAULT) [address] [place] [address] SARS-CoV-2 (COVID-19) RNA MILY+probe Ql (Unsp spec) Not detected [facility] Comment on above: Performed By: #### 9 [id number] #### [facility] (DEFAULT) [address] [place] [address] Strep Aon 01-28-2024 Strep procedure control Pass [facility] Comment on above: Performed By: #### 4 [id number] #### [facility] (DEFAULT) [address] [place] [address] Streptococcus A Negative [facility] Comment on above: Performed By: #### 4 [id number] #### [facility] (DEFAULT) [address] [place] [id number] Urgent Care Note- Provideron 01-28-2024 Urgent Care Note- Provider Patient: LIA DESAI Age: 23 years Sex: FEMALE : 2000 Associated Diagnoses: Acute URI Author: Errol Ortega Basic Information Time seen: Date & time 01/28/2024 11:48:00. History source: Patient. Arrival mode: Walking. History limitation: None. Additional information: Chief Complaint from Nursing Triage Note : Chief Complaint 01/28/2024 11:13 EDT Chief Complaint cough, headache, bodyaches, sore throat and ear pain since yesterday. intermittent fever as well. no fever now. no obvious distress. . Onset 01/27/24 24 hours ago of a constant, moderate sore throat. Fever Tmax of 101 yesterday. Currently afebrile without antipyretics on board. Having bodyaches yesterday that persist today. Currently at this time she reports nasal congestion, clear runny nose, a moderate constant sore throat and body aches. She states she had a headache yesterday and that is now gone. Been associate with a chest cough, shortness of breath or wheezing. She denies nausea vomiting diarrhea dizziness or lightheadedness. She is currently breast-feeding an 8-week old infant. Unsure what to take at home. Review of Systems Constitutional symptoms: Fever, chills, decreased activity, No sweats, Skin symptoms: No rash, no breakdown, no lesion. Eye symptoms: No recent vision problems, no blurred vision. ENMT symptoms: Sore throat, nasal congestion, no ear pain, no sinus pain. Respiratory symptoms: No shortness of breath, no cough, no wheezing. Cardiovascular symptoms: No chest pain, no palpitations. Gastrointestinal symptoms: No abdominal pain, no nausea, no vomiting, no diarrhea. Genitourinary symptoms: No dysuria, no hematuria. Musculoskeletal symptoms: Muscle pain, No back pain, Neurologic symptoms: Headache, no dizziness, no altered level of consciousness, no numbness, no tingling, no weakness. Psychiatric symptoms: No anxiety, no depression. Health Status Allergies: Allergic Reactions (Selected) Mild Adhesive Bandage- No reactions were documented. Unknown Zithromax- No reactions were documented.. Past Medical/ Family/ Social History Medical history: Resolved Disease caused by 2019 novel coronavirus ([id number]): Onset on 11/23/2020 at 20 years. Resolved. Comments: 11/23/2020 CDT 16:07 CDT - SYSTEM Problem added by Rule (IC_COVID19_AUTO_PROB CAMI) following 2019 Novel Coronavirus (CoVID-19), MILY L from Nasopharyngeal Swab collected on 22-NOV-2020 16:44:00 EDT tested positive for COVID-19. no history ([id number]): Resolved. Contact dermatitis ([id number]): Resolved. Pharyngitis ([id number]): Resolved. Cough ([id number]): Resolved.. Surgical history: Tonsillectomy and adenoidectomy ([id number]).. Family history: No family history items have been selected or recorded.. Social history: Social & Psychosocial Habits Alcohol 03/01/2023 Alcohol Use: Current Frequency: 1-2 times per month 01/28/2024 Alcohol Use: Current Frequency: 1-2 times per month Substance Use 11/15/2022 Substance use: Current Type: Marijuana Frequency: 1-2 times per week 02/14/2023 Substance use: Current Type: Marijuana Frequency: Several times per day Comment: States vapes marijuana about 4 hits/day - 03/07/2022 14:36 - Chloé Lombardo RN 04/15/2023 Substance use: Current Type: Marijuana 01/28/2024 Substance use: Past Tobacco 02/26/2023 Smoking tobacco use: Never tobacco user 01/28/2024 Smoking tobacco use: Never tobacco user Electronic Cigarette/Vaping 11/15/2022 Electronic Cigarette Use: Use, within last 90 days Type: Cannabinoid infused Use per Day: 26-50 Inhales/day 04/15/2023 Electronic Cigarette Use: Use, within last 90 days Type: Cannabinoid infused 01/28/2024 Electronic Cigarette Use: Never . Problem list: Active Problems (3) Acute depression Anxiety Chronic post-traumatic stress disorder (PTSD) . Physical Examination Vital Signs Vital Signs 01/28/2024 11:13 EDT Temperature Temporal 36.8 DegC Peripheral Pulse Rate 85 bpm Respiratory Rate 16 br/min Systolic Blood Pressure 128 mmHg HI Diastolic Blood Pressure 84 mmHg HI SpO2 98 % Oxygen Therapy Room air BP Method Automatic . Measurements 01/28/2024 11:13 EDT Height 170.18 cm Weight 120.66 kg Weight Dosing 120.660 kg Body Mass Index Measured 41.66 kg/m2 BSA Measured 2.39 m2 . General: Alert, appropriate for age, no acute distress, Well-hydrated, nontoxic, mild congestion. Skin: Warm, dry, pink, Normal turgor. Head: Normocephalic, atraumatic. Neck: Supple, trachea midline, no meningeal signs.. Eye: Pupils are equal, round and reactive to light, extraocular movements are intact, normal conjunctiva. Ears, nose, mouth and throat: Tympanic membrane: Normal, no erythema, Sinus: Frontal, maxillary, normal, no tenderness, Nose: Mild, congestion, discharge, Mouth: Normal, Throat: Normal, gag reflex present, no erythema, not with exudate, no swelling, no palatal petechiae, no uvula s (more content not included)... Normal [facility] [place] 024 Urgent Care Record [facility] ? Urgent Care [address] [place] [address] PATIENT DISCHARGE INSTRUCTIONS Patient Information Name: LIA DESAI Age: 23 Years Date of : 2000 Reason For Visit: Body aches; UC - Sore Throat; Earache; Cough; Throat pain - Adult; CONGESTION, BRYAN EAR PAIN, SORE THROAT, BODY ACHES Arrival Time: 01/28/2024 11:07:11 Primary Care Physician: ROBERT MARRERO Attending Physician: Errol Ortega Comment: Visit Diagnosis: Diagnoses This Visit Acute URI (J06.9) Body aches ([id number]) Cough ([id number]) Earache ([id number]) Throat pain - Adult ([id number]) UC - Sore Throat ([id number]) If you received any narcotics, sedation, or [...] With: Address: When: ROBERT MARRERO [address] [place] [address] Business (1) Within 5 to 7 days Comments: Viral upper respiratory illness. mother. Contagious 72 hours from onset Strep, Covid, Flu negative. Vitals good today. Begin Mucinex 600mg 1 po BID x 7 days. Begin Saline nasal spray Consider humidifier or Vics salve. Return if worse in any way. Medication Information: The exam and treatment you received today in the [facility] were for an urgent problem and are not intended as complete care. It is important for you to follow up with a doctor, nurse practitioner, or physician?s dyer assistant for ongoing care. If your symptoms [...] so we can reach you if necessary. [facility] has provided you with a complete list of medications post discharge. Please inform your certified pharmacy technician/provider of your visit and for further instruction on these medications. Any specific questions regarding your chronic medications and dosages should be discussed with your primary care physician(s) and/or pharmacist. New Medications [facility] [address] [place], [place] [id number], [phone] guaiFENesin (Mucinex 600 mg oral tablet, extended release) 1 tab(s) Oral (given by mouth) Every 12 hours scheduled time as needed congestion for 10 Days. Refills: 0. sodium chloride nasal (Spring Saline Mist 0.65% nasal spray) 2 spray(s) Nasal 4 times a day for 7 Days. Refills: 0. Visit Information Allergies: Substance Reaction Symptoms Type Comments Zithromax Drug Adhesive Bandage Other Vital Signs: Vitals and Measurements this Visit (last charted value for your 01/28/2024 visit) Vital Signs This Visit Temperature Temporal: 36.8 DegC Peripheral Pulse Rate: 85 bpm Respiratory Rate: 16 br/min Systolic Blood Pressure: 128 mmHg Diastolic Blood Pressure: 84 mmHg SpO2: 98 % Oxygen Therapy: Room air Blood Pressure Method: Automatic Measurements This Visit Height/Length Measured: 170.18 cm Weight Measured: 120.66 kg Weight Dosin.660 kg Body Mass Index: 41.66 kg/m2 BSA Measured: 2.39 m2 Problems List: Problem Onset Comments Acute [...] You are very young or very old. (more content not included)... Normal [facility] ALL CBC WITH AUTO DIFFon BASOPHILS ABSOLUTE AUTO 0.1 [facility] Basophils/100 WBC (Bld) 0.5 % 0.2 - 2.0 % [facility] Eosinophils/100 WBC (Bld) 0.8 % Low 0.9 - 7.0 % [facility] Erythrocyte distribution width (RBC) [Ratio] 13.3 % 11.0 - 15.0 % [facility] Hematocrit (Bld) [Volume fraction] 31.5 % Low 36.0 - 48.0 % [facility] Hemoglobin (Bld) [Mass/Vol] 10.0 g/dL Low 12.0 - 16.0 g/dL [facility] IMMATURE GRANULOCYTES ABS AUTO 0.19 High [facility] Immature granulocytes/100 WBC (Bld) 1.3 % High 0.0 - 0.5 % [facility] Interpretation and review of laboratory results Abnormal [facility] LYMPHOCYTES ABSOLUTE AUTO 4.0 High [facility] Lymphocytes/100 WBC (Bld) 27.7 % 20.5 - 60.0 % [facility] MCH (RBC) [Entitic mass] 26.5 pg Low 26.7 - 34.0 pg [facility] MCHC (RBC) [Mass/Vol] 31.7 g/dL 29.9 - 35.2 g/dL [facility] MCV (RBC) [Entitic vol] 83.6 fL 81.0 - 99.0 fL [facility] MONOCYTES ABSOLUTE AUTO 1.4 High [facility] Monocytes/100 WBC (Bld) 9.6 % 1.7 - 12.0 % [facility] NEUTROPHILS ABSOLUTE AUTO 8.6 High [facility] Neutrophils/100 WBC (Bld) 60.1 % 43.0 - 75.0 % [facility] Platelet mean volume (Bld) [Entitic vol] 10.2 fL 9.5 - 13.5 fL [facility] EO # 0.1 [facility] PLT 323 [facility] RBC 3.77 Low [facility] WBC 14.3 High [facility] WITH [facility]ATELET NO DI FFERENTIALon 12-04-2023 Erythrocyte distribution width (RBC) [Ratio] 12.9 % 11.0 - 15.0 % [facility] Hematocrit (Bld) [Volume fraction] 36.4 % 36.0 - 48.0 % [facility] Hemoglobin (Bld) [Mass/Vol] 11.8 g/dL Low 12.0 - 16.0 g/dL [facility] Interpretation and review of laboratory results Abnormal [facility] MCH (RBC) [Entitic mass] 26.9 pg 26.7 - 34.0 pg [facility] MCHC (RBC) [Mass/Vol] 32.4 g/dL 29.9 - 35.2 g/dL [facility] MCV (RBC) [Entitic vol] 82.9 fL 81.0 - 99.0 fL [facility] Platelet mean volume (Bld) [Entitic vol] 10.1 fL 9.5 - 13.5 fL [facility] PLT 423 [facility] RBC 4.39 [facility] WBC 14.6 High [facility] URINALYSISon 09-04-2023 Bilirubin Ql (U) Negative Normal NEG [facility] Comment on above: Performed By: #### U A #### [facility] ([id number]) [address] [place] [address], [place] [address] BLOOD/HGB Negative Normal NEG [facility] Comment on above: Performed By: #### U A #### [facility] ([id number]) [address] [place] [address] Color (U) YELLOW Normal YELLOW [facility] Comment on above: Performed By: #### U A #### [facility] ([id number]) [address] [place] [address] Glucose Ql (U) Negative Normal NEG [facility] Comment on above: Performed By: #### U A #### [facility] ([id number]) [address] [place] [address] Ketones Ql (U) Negative Normal NEG [facility] Comment on above: Performed By: #### U A #### [facility] ([id number]) [address] [place] [address] Leukocyte esterase Test strip Ql (U) Trace Abnormal NEG [facility] Comment on above: Performed By: #### U A #### [facility] ([id number]) [address] [place] [address] Nitrite Ql (U) Negative Normal NEG [facility] Comment on above: Performed By: #### U A #### [facility] ([id number]) [address] [place] [address] pH (U) 6.5 [pH] Normal 5.0-8.5 [facility] Comment on above: Performed By: #### U A #### [facility] ([id number]) [address] [place] [address] Protein Ql (U) Negative Normal NEG [facility] Comment on above: Performed By: #### U A #### [facility] ([id number]) [address] [place] [address] R.B.CELLS 0 /hpf Normal 0-5 [facility] Comment on above: Performed By: #### U A #### [facility] ([id number]) [address] [place] [address] 15017 Specific gravity (U) [Rel density] 1.020 Normal 1.003-1.035 [facility] Comment on above: Performed By: #### U A #### [facility] ([id number]) [address] [place] [address] SQUAMOUS EPITHELIUM 5 /hpf Normal 0-5 [facility] Comment on above: Performed By: #### U A #### [facility] ([id number]) [address] [place] [address] TURBIDITY HAZY Abnormal CLEAR [facility] Comment on above: Performed By: #### U A #### [facility] ([id number]) [address] [place] [address]88 Urobilinogen Qn (U) 1.0 {Pepito'U}/dL Normal <1.1 [facility] Comment on above: Performed By: #### U A #### [facility] ([id number]) [address] [place] [address] 19302 W.B.CELLS 2 /hpf Normal 0-5 [facility] Comment on above: Performed By: #### U A #### [facility] ([id number]) [address] [place] [address] Cytology Cervical or vaginal smear or scraping studyon 07-01-2023 [facility] ALL CBC WITH AUTO DIFFon BASOPHILS ABSOLUTE AUTO 0.0 [facility] Basophils/100 WBC (Bld) 0.3 % 0.2 - 2.0 % [facility] Eosinophils/100 WBC (Bld) 0.5 % Low 0.9 - 7.0 % [facility] Erythrocyte distribution width (RBC) [Ratio] 12.2 % 11.0 - 15.0 % [facility] Hematocrit (Bld) [Volume fraction] 38.6 % 36.0 - 48.0 % [facility] Hemoglobin (Bld) [Mass/Vol] 12.3 g/dL 12.0 - 16.0 g/dL [facility] IMMATURE GRANULOCYTES ABS AUTO 0.02 [facility] Immature granulocytes/100 WBC (Bld) 0.2 % 0.0 - 0.5 % [facility] Interpretation and review of laboratory results Abnormal [facility] LYMPHOCYTES ABSOLUTE AUTO 3.1 [facility] Lymphocytes/100 WBC (Bld) 32.8 % 20.5 - 60.0 % [facility] MCH (RBC) [Entitic mass] 28.6 pg 26.7 - 34.0 pg [facility] MCHC (RBC) [Mass/Vol] 31.9 g/dL 29.9 - 35.2 g/dL [facility] MCV (RBC) [Entitic vol] 89.8 fL 81.0 - 99.0 fL [facility] MONOCYTES ABSOLUTE AUTO 0.7 [facility] Monocytes/100 WBC (Bld) 7.7 % 1.7 - 12.0 % [facility] NEUTROPHILS ABSOLUTE AUTO 5.4 [facility] Neutrophils/100 WBC (Bld) 58.5 % 43.0 - 75.0 % [facility] Platelet mean volume (Bld) [Entitic vol] 10.7 fL 9.5 - 13.5 fL [facility] EO # 0.1 [facility] PLT 211 [facility] RBC 4.30 [facility] WBC 9.3 [facility] US PREG TVon 08-08-2022 US PREG TV [...] CHRISTIAN KATE Date: 2022-08-08 16:56 Normal [facility] US PELVIS AND TRANSVAGon US [...] ANGELA SCOTT Date: 2022-06-04 06:57 Normal [facility] US PREG TVon 05-16-2022 US [...] CHRISTIAN KATE Date: 2022-05-16 18:15 Normal [facility] HEP B SURFACE ANTIGEN SCREEN on 04-20-2022 HBsAg Screen Negative Normal Negative [facility] Comment on above: Performed By: #### H BSANS #### [facility] [address] [place] [address] Dr. Jeronimo Melgar HEPATITIS C VIRUS AB W/ REFL EX QUANTon 04-20-2022 HCV AB <0.1 Normal 0.0-0.9 [facility] Comment on above: Performed By: #### H CVPCRR #### [facility] [address] [place] [address] Dr. Jeronimo Melgar Interpretation: Comment Normal [facility] Comment on above: Result Comment: Nega tive Not infected with HCV, unless recent infection is suspected or other evidence exists to indicate HCV infection. Performed By: #### H CVPCRR #### [facility] [address] [place] [address] Dr. Jeronimo Melgar HIV 1 AND 2 WITH REFLEXon HIV Screen 4th Generation wRfx Non-Reactive Normal Non Reactive [facility] Comment on above: Result Comment: HIV Negative HIV-1/HIV-2 antibodies and HIV-1 p24 antigen were NOT detected. There is no laboratory evidence of HIV infection. Performed By: #### H IV12 #### [facility] [address] [place] [address] Dr. Jeronimo Melgar RPR QUANTon 04-20-2022 Rapid Plasma Reagin, Quant Non-Reactive Normal NonRea<1:1 [facility] Comment on above: Result Comment: Plea se Note: This test does not meet current guidelines for screening and diagnosis of syphilis. This test is intended for following treatment response in patients being treated for syphilis infection. To screen for syphilis infection, a reflex cascade that includes both RPR and a treponema-specific assay should be utilized, such as Treponema pallidum (Syphilis) Screening [place] (284173) or Rapid Plasma Reagin (RPR) Test With Reflex to Quantitative RPR and Confirmatory Treponema pallidum Antibodies (038209). Performed By: #### R PRQ #### [facility] [address] [place] [address] Dr. Jeronimo Melgar RUBELLA AB IGGon 04-20-2022 Rubella Antibodies, IgG 1.85 index Normal Immune >0.99 [facility] Comment on above: Result Comment: Non- immune <0.90 Equivocal 0.90 - 0.99 Immune >0.99 Performed By: #### B OX #### [facility] [address] [place] [address] Dr. Jeronimo Melgar BOX TEST SENT OUTon 04-19-19 23 SENT TO REF LAB 04/19/2022 Normal [facility] Comment on above: Performed By: #### B OX #### [facility] [address] [place] [address] Dr. Jeronimo Melgar CBC AUTO DIFFon 04-19-2022 BASO # 0.1 103/ul Normal 0.0-0.1 [facility] Comment on above: Performed By: #### B OX #### [facility] [address] [place] [address] Dr. Jeronimo Melgar Basophils/100 WBC (Bld) 0.5 % Normal 0.2-2.0 [facility] Comment on above: Performed By: #### B OX #### [facility] [address] [place] [address] Dr. Jeronimo Melgar EO # 0.1 103/ul Normal 0.0-0.7 [facility] Comment on above: Performed By: #### B OX #### [facility] [address] [place] [address] Dr. Jeronimo Melgar Eosinophils/100 WBC (Bld) 0.7 % Critically low 0.9-7.0 [facility] Comment on above: Performed By: #### B OX #### [facility] [address] [place] [address] Dr. Jeronimo Melgar Erythrocyte distribution width (RBC) [Ratio] 12.8 % Normal 11.0-15.0 [facility] Comment on above: Performed By: #### B OX #### [facility] [address] [place] [address] Dr. Jeronimo Melgar Hematocrit (Bld) [Volume fraction] 43.7 % Normal 36.0-48.0 [facility] Comment on above: Performed By: #### B OX #### [facility] [facility] [address] [place] [address] Dr. Jeronimo Melgar Hemoglobin (Bld) [Mass/Vol] 13.1 g/dL Normal 12.0-16.0 [facility] Comment on above: Performed By: #### B OX #### [facility] [address] [place] [address] Dr. Jeronimo Melgar IG # 0.02 10e3/ul Normal 0.00-0.03 [facility] Comment on above: Performed By: #### B OX #### [facility] [address] [place] [address] Dr. Jeronimo Melgar IG % 0.2 % Normal 0.0-0.5 [facility] Comment on above: Performed By: #### B OX #### [facility] [address] [place] [address] Dr. Jeronimo Melgar LYMPH # 2.6 103/ul Normal 1.2-3.8 [facility] Comment on above: Performed By: #### B OX #### [facility] [address] [place] [address] Dr. Jeronimo Melgar Lymphocytes/100 WBC (Bld) 27.3 % Normal 20.5-60.0 [facility] Comment on above: Performed By: #### B OX #### [facility] [address] [place] [address] Dr. Jeronimo Melgar MANUAL DIFF REQ NO Normal [facility] Comment on above: Performed By: #### B OX #### [facility] [address] [place] [address] Dr. Jeronimo Melgar MCH (RBC) [Entitic mass] 27.7 pg Normal 26.7-34.0 [facility] Comment on above: Performed By: #### B OX #### [facility] [address] [place] [address] Dr. Jeronimo Melgar MCHC (RBC) [Mass/Vol] 30.0 g/dL Normal 29.9-35.2 [facility] Comment on above: Performed By: #### B OX #### [facility] [address] [place] [address] Dr. Jeronimo Melgar MCV (RBC) [Entitic vol] 92.4 fL Normal 81.0-99.0 [facility] Comment on above: Performed By: #### B OX #### [facility] [address] [place] [address] Dr. Jeronimo Melgar MONO # 0.8 103/ul Normal 0.3-0.8 [facility] Comment on above: Performed By: #### B OX #### [facility] [address] [place] [address] Dr. Jeronimo Melgar Monocytes/100 WBC (Bld) 7.8 % Normal 1.7-12.0 [facility] Comment on above: Performed By: #### B OX #### [facility] [address] [place] [address] Dr. Jeronimo Melgar NEUT # 6.1 103/ul Normal 1.4-6.5 [facility] Comment on above: Performed By: #### B OX #### [facility] [address] [place] [address] Dr. Jeronimo Melgar Neutrophils/100 WBC (Bld) 63.5 % Normal 43.0-75.0 [facility] Comment on above: Performed By: #### B OX #### [facility] [address] [place] [address] Dr. Jeronimo Melgar Platelet mean volume (Bld) [Entitic vol] 10.7 fL Normal 9.5-13.5 [facility] Comment on above: Performed By: #### B OX #### [facility] [address] [place] [address] Dr. Jeronimo Melgar PLT 399 103/ul Normal 150-450 [facility] Comment on above: Performed By: #### B OX #### [facility] [address] [place] [address] Dr. Jeronimo Melgar RBC 4.73 106/ul Normal 4.20-5.40 [facility] Comment on above: Performed By: #### B OX #### [facility] [address] [place] [address] Dr. Jeronimo Melgar WBC 9.6 103/ul Normal 4.0-11.0 [facility] Comment on above: Performed By: #### B OX #### [facility] [address] [place] [address] Dr. Jeronimo Melgar CULTURE URINEon 04-19-2022 CULTURE URINE Culture Observations : LIGHT GROWTH OF MIXED GENITAL JONNY. NO POTENTIAL PATHOGENS SEEN. Normal [facility] Comment on above: Performed By: #### B OX #### [facility] [address] [place] [address] Dr. Jeronimo Melgar DRUG SCREEN RAPID (URINE)on 04-19-2022 AMP Negative Normal NEGATIVE [facility] Comment on above: Performed By: #### H IV12 #### [facility] [address] [place] [address] Dr. Jeronimo Melgar BAR Negative Normal NEGATIVE [facility] Comment on above: Performed By: #### H IV12 #### [facility] [address] [place] [address] Dr. Jeronimo Melgar BUP Negative Normal NEGATIVE [facility] Comment on above: Performed By: #### H IV12 #### [facility] [address] [place] [address] Dr. Jeronimo Melgar BZO Negative Normal NEGATIVE [facility] Comment on above: Performed By: #### H IV12 #### [facility] [address] [place] [address] Dr. Jeronimo Melgar KRISTINA Negative Normal NEGATIVE [facility] Comment on above: Performed By: #### H IV12 #### [facility] [address] [place] [address] Dr. Jeronimo Melgar CUT-OFFS SEE BELOW Normal [facility] Comment on above: Result Comment: AMP [...] ng/mL Performed By: #### H IV12 #### [facility] [address] [place] [address] Dr. Jeronimo Melgar DRUG CUT HEADER DRUG CLASS TEST SYSTEM CUT-OFF CONCENTRATIONS ARE FOLLOWS: Normal [facility] Comment on above: Performed By: #### H IV12 #### [facility] [address] [address] [address] Jeronimo Melgar mAMP Negative Normal NEGATIVE [facility] Comment on above: Performed By: #### H IV12 #### [facility] [address] [address] [address] Jeronimo Melgar MTD Negative Normal NEGATIVE [facility] Comment on above: Performed By: #### H IV12 #### [facility] [address] [address] [address] Jeronimo Melgar OPI Negative Normal NEGATIVE [facility] Comment on above: Performed By: #### H IV12 #### [facility] [address] [place] [address] Dr. Jeronimo Melgar OXY Negative Normal NEGATIVE [facility] Comment on above: Performed By: #### H IV12 #### [facility] [address] [place] [address] Dr. Jeronimo Melgar PCP Negative Normal NEGATIVE [facility] Comment on above: Performed By: #### H IV12 #### [facility] [address] [place] [address] Dr. Jeronimo Melgar PPX Negative Normal NEGATIVE [facility] Comment on above: Performed By: #### H IV12 #### [facility] [address] [address] [address] Jeronimo Melgar TCA Negative Normal NEGATIVE [facility] Comment on above: Performed By: #### H IV12 #### [facility] [address] [place] [address] Dr. Jeronimo Melgar THC Negative Normal NEGATIVE [facility] Comment on above: Performed By: #### H IV12 #### [facility] [address] [place] [address] Dr. Jeronimo Melgar GLYCOHEMOGLOBIN A1Con 2022 ADA RECOMMENDATION SEE BELOW Normal [facility] Comment on above: Result Comment: ADA RECOMMENDED LIMIT 4.0 - 6.0 ADA THERAPEUTIC TARGET < 7.0 ACTION SUGGESTED > 7.0 Performed By: #### A 1C #### [facility] [address] [place] [address] Dr. Jeronimo Melgar Glucose [Mass/Vol] 100 mg/dL Normal [facility] Comment on above: Performed By: #### A 1C #### [facility] [address] [place] [address] Dr. Jeronimo Melgar HbA1c (Bld) [Mass fraction] 5.1 % Normal 4.5-6.2 [facility] Comment on above: Performed By: #### A 1C #### [facility] [address] [place] [address] Dr. Jeronimo Melgar TYPE AND SCREENon 04-19-2022 TYPE AND SCREEN Negative Normal [facility] Comment on above: Performed By: #### B OX #### [facility] [address] [place] [address] Dr. Jeronimo Melgar CBC AUTO DIFFon 04-02-2022 BASO # 0.0 103/ul Normal 0.0-0.1 [facility] Comment on above: Performed By: #### C BC #### [facility] [address] [place] [address] Dr. Jeronimo Melgar Basophils/100 WBC (Bld) 0.3 % Normal 0.2-2.0 [facility] Comment on above: Performed By: #### C BC #### [facility] [address] [place] [address] Dr. Jeronimo Melgar EO # 0.0 103/ul Normal 0.0-0.7 [facility] Comment on above: Performed By: #### C BC #### [facility] [address] [place] [address] Dr. Jeronimo Melgar Eosinophils/100 WBC (Bld) 0.2 % Critically low 0.9-7.0 [facility] Comment on above: Performed By: #### C BC #### [facility] [address] [place] [address] Dr. Jeronimo Melgar Erythrocyte distribution width (RBC) [Ratio] 12.9 % Normal 11.0-15.0 [facility] Comment on above: Performed By: #### C BC #### [facility] [address] [place] [address] Dr. Jeronimo Melgar Hematocrit (Bld) [Volume fraction] 37.5 % Normal 36.0-48.0 [facility] Comment on above: Performed By: #### C BC #### [facility] [address] [place] [address] Dr. Jeronimo Melgar Hemoglobin (Bld) [Mass/Vol] 12.4 g/dL Normal 12.0-16.0 [facility] Comment on above: Performed By: #### C BC #### [facility] [address] [place] [address] Dr. Jeronimo Melgar IG # 0.05 10e3/ul Critically high 0.00-0.03 [facility] Comment on above: Performed By: #### C BC #### [facility] [address] [place] [address] Dr. Jeronimo Melgar IG % 0.3 % Normal 0.0-0.5 [facility] Comment on above: Performed By: #### C BC #### [facility] [address] [place] [address] Dr. Jeronimo Melgar LYMPH # 2.0 103/ul Normal 1.2-3.8 [facility] Comment on above: Performed By: #### C BC #### [facility] [address] [place] [address] Dr. Jeronimo Melgar Lymphocytes/100 WBC (Bld) 14.1 % Critically low 20.5-60.0 [facility] Comment on above: Performed By: #### C BC #### [facility] [address] [place] [address] Dr. Jeronimo Melgar MANUAL DIFF REQ NO Normal [facility] Comment on above: Performed By: #### C BC #### [facility] [address] [place] [address] Dr. Jeronimo Melgar MCH (RBC) [Entitic mass] 27.9 pg Normal 26.7-34.0 [facility] Comment on above: Performed By: #### C BC #### [facility] [address] [address] [address] Jeronimo Melgar MCHC (RBC) [Mass/Vol] 33.1 g/dL Normal 29.9-35.2 [facility] Comment on above: Performed By: #### C BC #### [facility] [address] [address] [address] Jeronimo Melgar MCV (RBC) [Entitic vol] 84.3 fL Normal 81.0-99.0 [facility] Comment on above: Performed By: #### C BC #### [facility] [address] [address] [address] Jeronimo Melgar MONO # 0.6 103/ul Normal 0.3-0.8 [facility] Comment on above: Performed By: #### C BC #### [facility] [address] [place] [address] Dr. Jeronimo Melgar Monocytes/100 WBC (Bld) 4.0 % Normal 1.7-12.0 [facility] Comment on above: Performed By: #### C BC #### [facility] [address] [place] [address] Dr. Jeronimo Melgar NEUT # 11.7 103/ul Critically high 1.4-6.5 [facility] Comment on above: Performed By: #### C BC #### [facility] [address] [place] [address] Dr. Jeronimo Melgar Neutrophils/100 WBC (Bld) 81.1 % Critically high 43.0-75.0 [facility] Comment on above: Performed By: #### C BC #### [facility] [address] [place] [address] Dr. Jeronimo Melgar Platelet mean volume (Bld) [Entitic vol] 10.2 fL Normal 9.5-13.5 [facility] Comment on above: Performed By: #### C BC #### [facility] [address] [place] [address] Dr. Jeronimo Melgar PLT 420 103/ul Normal 150-450 [facility] Comment on above: Performed By: #### C BC #### [facility] [address] [place] [address] Dr. Jeronimo Melgar RBC 4.45 106/ul Normal 4.20-5.40 [facility] Comment on above: Performed By: #### C BC #### [facility] [address] [place] [address] Dr. Jeronimo Melgar WBC 14.4 103/ul Critically high 4.0-11.0 [facility] Comment on above: Performed By: #### C BC #### [facility] [address] [place] [address] Dr. Jeronimo Melgar ER URINE PROFILEon 2 Bilirubin Ql (U) Negative Normal NEGATIVE [facility] Comment on above: Performed By: #### B OX #### [facility] [address] [place] [address] Dr. Jeronimo Melgar Clarity (U) CLEAR Normal CLEAR [facility] Comment on above: Performed By: #### B OX #### [facility] [address] [place] [address] Dr. Jeronimo Melgar Color (U) YELLOW Normal YELLOW [facility] Comment on above: Performed By: #### B OX #### [facility] [address] [place] [address] Dr. Jeronimo FLORES A micrscopic examination will be performed if indicated. Normal [facility] Comment on above: Performed By: #### B OX #### [facility] [address] [place] [address] Dr. Jeronimo Melgar Glucose Ql (U) Negative Normal NEGATIVE [facility] Comment on above: Performed By: #### B OX #### [facility] [address] [place] [address] Dr. Jeronimo Melgar Hemoglobin Ql (U) Negative Normal NEGATIVE [facility] Comment on above: Performed By: #### B OX #### [facility] [address] [place] [address] Dr. Jeronimo Melgar Ketones Ql (U) >=80 Abnormal NEGATIVE [facility] Comment on above: Performed By: #### B OX #### [facility] [address] [place] [address] Dr. Jeronimo Melgar LEUKOCYTES Negative Normal NEGATIVE [facility] Comment on above: Performed By: #### B OX #### [facility] [address] [place] [address] Dr. Jeronimo Melgar Nitrite Ql (U) Negative Normal NEGATIVE [facility] Comment on above: Performed By: #### B OX #### [facility] [address] [place] [address] Dr. Jeronimo Melgar pH (U) 7.0 [pH] Normal 5-9 [facility] Comment on above: Performed By: #### B OX #### [facility] [address] [place] [address] Dr. Jeronimo Melgar SPEC GRAVITY 1.020 Normal 1.005-<=1.025 [facility] Comment on above: Performed By: #### B OX #### [facility] [address] [place] [address] Dr. Jeronimo Melgar UA PROTEIN TRACE Normal NEGATIVE/ TRACE [facility] Comment on above: Performed By: #### B OX #### [facility] [address] [place] [address] Dr. Jeronimo Melgar UR MICRO IND NOT INDICATED Normal [facility] Comment on above: Performed By: #### B OX #### [facility] [address] [place] [address] Dr. Jeronimo Melgar Urobilinogen Qn (U) 1.0 {Pepito'U}/dL Normal 0.2 - 1. 0 [facility] Comment on above: Performed By: #### B OX #### [facility] [address] [place] [address] Dr. Jeronimo Melgar PROF CHEM 8 (BAS METB)on Anion gap [Moles/Vol] 12.7 mmol/L Normal [facility] Comment on above: Performed By: #### B MP #### [facility] [address] [place] [address] Dr. Jeronimo Melgar Calcium [Mass/Vol] 9.1 mg/dL Normal 8.5-10.1 [facility] Comment on above: Performed By: #### B MP #### [facility] [address] [address] [address] Jeronimo Melgar Chloride [Moles/Vol] 103 mmol/L Normal 98-107 [facility] Comment on above: Performed By: #### B MP #### [facility] [address] [address] [address] Jeronimo Melgar CO2 [Moles/Vol] 23.9 mmol/L Normal 21.0-32.0 [facility] Comment on above: Performed By: #### B MP #### [facility] [address] [address] [address] Jeronimo Melgar Creatinine [Mass/Vol] 0.78 mg/dL Normal 0.55-1.02 [facility] Comment on above: Performed By: #### B MP #### [facility] [address] [address] [address] Jeronimo Melgar EGFR-AF STATELESS >60 Normal >=60 [facility] Comment on above: Performed By: #### B MP #### [facility] [address] [address] [address] Jeronimo Melgar EGFR-NON AF STATELESS >60 Normal >=60 [facility] Comment on above: Performed By: #### B MP #### [facility] [address] [address] [address] Jeronimo Melgar Glucose [Mass/Vol] 155 mg/dL Critically high 74-[address] [facility] Comment on above: Performed By: #### B MP #### [facility] [address] [address] [address] Jeronimo Melgar Potassium [Moles/Vol] 3.6 mmol/L Normal 3.5-5.1 [facility] Comment on above: Performed By: #### B MP #### [facility] [address] [address] [address] Jeronimo Melgar Sodium [Moles/Vol] 136 mmol/L Normal 136-145 [facility] Comment on above: Performed By: #### B MP #### [facility] [address] [address] [address] Jeronimo Melgar Urea nitrogen [Mass/Vol] 7.0 mg/dL Normal 7.0-18.0 [facility] Comment on above: Performed By: #### B MP #### [facility] [address] [place] [address] Dr. Jeronimo Melgar Urea nitrogen/Creatinine [Mass ratio] 9.0 mg/mg Normal [facility] Comment on above: Performed By: #### B MP #### [facility] [address] [address] [address] Jeronimo Melgar US PREG TVon 03-28-2022 [...] ANGELA SCOTT Date: 2022-03-28 16:32 Normal [facility] US PELVIS AND TRANSVAGon US [...] by: CHRISTIAN KATE Date: 2021-10-17 16:35 Normal [facility] CHLAMYDIA/GONOCOCCUS MILY (SW AB/URINE/PAPon 10-14-2021 Chlamydia trachomatis, MILY Positive Abnormal Negative [facility] Comment on above: Result Comment: . Performed By: #### C T/NGNA #### [facility] [address] [place] [address] Dr. Jeronimo Melgar Neisseria gonorrhoeae, MILY Negative Normal Negative [facility] Comment on above: Performed By: #### C T/NGNA #### [facility] [address] [address] [address] Jeronimo Melgar VAGINITIS/VAGINOSIS DNA PROB Obed 10-13-2021 Yang species Negative Normal Negative [facility] Comment on above: Performed By: #### V AGINT #### [facility] [address] [place] [address] Dr. Jeronimo Melgar Gardnerella vaginalis Negative Normal Negative [facility] Comment on above: Performed By: #### V AGINT #### [facility] [address] [place] [address] Dr. Jeronimo Melgar Trichomonas vaginalis Negative Normal Negative [facility] Comment on above: Performed By: #### V AGINT #### [facility] [address] [place] [address] Dr. Jeronimo Melgar XR foot LT min 3V*on 022 XR foot LT min 3V* [facility] [place] [address] XRay Report Signed Patient: Lia Desai MR#: [id number] : 2000 Acct:[id number] Age/Sex: 20 / F ADM Date: 07/18/21 Loc: ER Room: Type: [facility] ER Attending Dr: Ordering Provider: Oneil Ricci APRN Date of Service: 07/18/21 XR/XR foot LT min 3V*: Extremity Injury, Lower ([id number]) XR/XR ankle LT min 3V*: Extremity Injury, [...] Brewer Jr., M.D.07/18/2021 6:15 PM Dictation Location: [place] [address] Transcribed By: [facility] 07/18/211814 Dictated By: Bijan Brewer Jr, MD 07/18/211812 Signed By: 07/18/211814 [facility] XR knee RT 4V*on 05-15-2021 XR knee RT 4V* [facility] [place] [address] XRay Report Signed Patient: Lia Desai MR#: [id number] : 2000 Acct:[id number] Age/Sex: 20 / F ADM Date: 05/15/21 Loc: ER Room: Type: [facility] ER Attending Dr: Ordering Provider: Yovani [...] Ana Juan M.D.05/15/2021 8:11 PM Dictation Location: [place] [address] Transcribed By: [facility] 05/15/212010 Dictated By: Ana Juan II, MD 05/15/212008 Signed By: 05/15/212010 [facility] Vital Signs Date Time Vital Sign Value Performing Clinician Facility 10-05-2024 11:32-0400 Body mass index (BMI) [Ratio] 40.51 kg/m2 Robert Janes DO Work Phone: [facility] 10-05-2024 11:32-0400 Body weight 113.85 kg Robert Janes DO Work Phone: [facility] 10-05-2024 11:32-0400 Diastolic blood pressure 78 mm[Hg] Robert Janes DO Work Phone: [facility] 10-05-2024 11:32-0400 Systolic blood pressure 124 mm[Hg] Robert Janes DO Work Phone: [facility] 09-07-2024 11:13-0400 Body mass index (BMI) [Ratio] 41.08 kg/m2 Robert Janes DO Work Phone: [facility] 09-07-2024 11:13-0400 Body weight 115.44 kg Robert Janes DO Work Phone: [facility] 09-07-2024 11:13-0400 Diastolic blood pressure 80 mm[Hg] Robert Janes DO Work Phone: [facility] 09-07-2024 11:13-0400 Systolic blood pressure 108 mm[Hg] Robert Janes DO Work Phone: [facility] 08-06-2024 15:53-0400 Body mass index (BMI) [Ratio] 41.8 kg/m2 [facility] 08-06-2024 15:53-0400 Body weight 117.48 kg [facility] Nurse [facility] 08-06-2024 15:53-0400 Diastolic blood pressure 84 mm[Hg] [facility] Nurse [facility] 08-06-2024 15:53-0400 Systolic blood pressure 118 mm[Hg] [facility] 01-14-2024 11:48-0400 Body mass index (BMI) [Ratio] 43 kg/m2 [employer] [facility] Work Phone: [facility] 01-14-2024 11:48-0400 Body weight 120.84 kg [facility] Work Phone: [facility] 01-14-2024 11:48-0400 Diastolic blood pressure 70 mm[Hg] [employer] [facility] Work Phone: [facility] 01-14-2024 11:48-0400 Systolic blood pressure 120 mm[Hg] [employer] [facility] Work Phone: [facility] 11-28-2023 08:40-0400 Body mass index (BMI) [Ratio] 44.89 kg/m2 Robert Janes DO Work Phone: [facility] 11-28-2023 08:40-0400 Body weight 126.14 kg Robert Janes DO Work Phone: [facility] 11-28-2023 08:40-0400 Diastolic blood pressure 86 mm[Hg] Robert Janes DO Work Phone: [facility] 11-28-2023 08:40-0400 Systolic blood pressure 132 mm[Hg] Robert Janes DO Work Phone: [facility] 07-18-2021 16:56-0400 Body height 167.64 cm [facility] 07-18-2021 16:56-0400 Body mass index (BMI) [Percentile] Per age and sex 98.9 % [facility] 07-18-2021 16:56-0400 Body mass index (BMI) [Ratio] 44.3 kg/m2 [facility] 07-18-2021 16:56-0400 Body temperature 98.3 [degF] [facility] 07-18-2021 16:56-0400 Body weight 124.6 kg [facility] 07-18-2021 16:56-0400 Diastolic blood pressure 108 mm[Hg] [facility] 07-18-2021 16:56-0400 Heart rate 80 /min [facility] 07-18-2021 16:56-0400 Respiratory rate 18 /min [facility] 07-18-2021 16:56-0400 Systolic blood pressure 162 mm[Hg] [facility] 05-15-2021 19:47-0500 Body height 167.64 cm [facility] 05-15-2021 19:47-0500 Body mass index (BMI) [Percentile] Per age and sex 98.9 % [facility] 05-15-2021 19:47-0500 Body mass index (BMI) [Ratio] 43.7 kg/m2 [facility] 05-15-2021 19:47-0500 Body temperature 98.8 [degF] [facility] 05-15-2021 19:47-0500 Body weight 122.95 kg [facility] 05-15-2021 19:47-0500 Diastolic blood pressure 65 mm[Hg] [facility] 05-15-2021 19:47-0500 Heart rate 75 /min [facility] 05-15-2021 19:47-0500 Respiratory rate 16 /min [facility] 05-15-2021 19:47-0500 SaO2% (BldA) [Mass fraction] 100 % [facility] 05-15-2021 19:47-0500 Systolic blood pressure 144 mm[Hg] [facility] Encounters Encounter Date Encounter Type Care Provider Facility Start: 10-05-2024 End: 10-05-2024 [facility] Janes DO Work Phone: [facility] Start: 10-05-2024 End: 10-05-2024 Super[employer] Robert Janes DO Work Phone: [facility] Start: 10-05-2024 End: 10-05-2024 Office outpatient visit 15 minutes Teads Phone: [facility] Comment on above: Second trimester pre gnancy ([facility]); 17 weeks gestation of ([facility]); Well woman exam with routine gynecological exam; Exposure to STD; Need for maternal serum alpha-protein (MSAFP) screening ([facility]); Screening, , for anatomic survey ([facility]); SOB (shortness of breath); Dizziness Start: 10-05-2024 End: 10-05-2024 Patient encounter procedure Robert Janes DO Work Phone: [facility] Start: 09-20-2024 ambulatory CAROL-Shakeel Garzon Fac ility:[facility] Start: 09-07-2024 End: 09-07-2024 Bamboo flowsheet Robert Janes DO Work Phone: [facility] Start: 09-07-2024 End: 09-08-2024 Bamboo flowsheet Robert Janes DO Work Phone: [facility] Start: 09-07-2024 End: 09-08-2024 Clinisync Result Encounter Robert Janes DO Work Phone: [facility] Unsolicited Start: 09-07-2024 End: 09-07-2024 ambulatory ROBERT JANES Not Available Start: 09-07-2024 End: 09-07-2024 Office outpatient visit 15 minutes Robert Janes DO Work Phone: [facility] Comment on above: Constipation, unspec ified constipation type (Primary Dx); First trimester ; 13 weeks gestation of ; Nausea and vomiting in Start: 08-18-2024 End: 08-18-2024 Clinisync Result Encounter Robert Janes DO Work Phone: [facility] Unsolicited Start: 08-18-2024 End: 08-18-2024 Clinisync Result Encounter Robert Janes DO Work Phone: [facility] Unsolicited Start: 08-11-2024 Emergency department patient visit Errol Martin PAC Facility:[facility] Start: 08-06-2024 End: 08-06-2024 Office outpatient visit 5 minutes [facility] Janes Nurse [facility] Comment on above: GA: 8w4d Start: 08-06-2024 End: 08-06-2024 ambulatory ROBERT JANES Not Available Start: 08-03-2024 End: 08-03-2024 Emergency department patient visit [facility] Start: 07-20-2024 End: 07-20-2024 Emergency department patient visit [facility] Start: 07-03-2024 End: 07-03-2024 Clinisync Result Encounter Robert Janes DO Work Phone: [facility] Unsolicited Start: 07-03-2024 End: 07-03-2024 Clinisync Result Encounter Robert Janes DO Work Phone: [facility] Unsolicited Start: 07-01-2024 End: 07-01-2024 Clinisync Result Encounter Robert Janes DO Work Phone: [facility] Unsolicited Start: 07-01-2024 End: 07-01-2024 Clinisync Result Encounter Robert Janes DO Work Phone: [facility] Unsolicited Start: 06-07-2024 Emergency department patient visit None Provider Facility:[facility] Start: 06-03-2024 ambulatory ROBERT R JANES Facility: [facility] Start: 06-01-2024 End: 06-01-2024 ambulatory None Provider Facility:[facility] Start: 05-30-2024 End: 05-30-2024 Emergency department patient visit [facility] Start: 05-17-2024 End: 05-17-2024 Clinisync Result Encounter Robert Janes DO Work Phone: [facility] Unsolicited Start: 05-17-2024 End: 05-17-2024 Clinisync Result Encounter Robert Janes DO Work Phone: [facility] Unsolicited Start: 05-15-2024 End: 05-15-2024 Clinisync Result Encounter Robert Janes DO Work Phone: [facility] Unsolicited Start: 05-15-2024 End: 05-15-2024 Clinisync Result Encounter Robert Janes DO Work Phone: [facility] Unsolicited Start: 05-01-2024 End: 05-01-2024 Emergency department patient visit [facility] Start: 04-22-2024 End: 04-22-2024 Emergency department patient visit [facility] Start: 04-19-2024 Emergency department patient visit Unlisted Provider Facility:[facility] Start: 03-20-2024 Emergency department patient visit Oneil Littlejohn Facility:[facility] Start: 01-28-2024 End: 01-28-2024 ambulatory Errolpaulette Cumminses PAC Facility:[facility] Start: 01-14-2024 End: 01-14-2024 Bamboo flowsheet Nano MILLS Work Phone: [facility] Start: 01-14-2024 End: 01-14-2024 Bamboo flowsheet [facility] MILLS Work Phone: [facility] Start: 01-14-2024 End: 01-14-2024 care visit Nano MILLS Work Phone: [facility] Comment on above: 6 weeks f ollow-up Start: 01-14-2024 End: 01-14-2024 ambulatory NANO CR Not Available Start: 12-06-2023 End: 12-06-2023 Clinisync Result Encounter Robert Janes DO Work Phone: [facility] Unsolicited Start: 12-06-2023 End: 12-06-2023 Clinisync Result Encounter Robert Janes DO Work Phone: [facility] Unsolicited Start: 12-04-2023 End: 12-04-2023 Clinisync Result Encounter Robert Janes DO Work Phone: [facility] Unsolicited Start: 12-04-2023 End: 12-04-2023 Clinisync Result Encounter Robert Janes DO Work Phone: [facility] Unsolicited Start: 11-28-2023 End: 11-28-2023 Bamboo flowsheet Robert Janes DO Work Phone: [facility] Start: 11-28-2023 End: 11-28-2023 Bamboo flowsheet Robert Janes DO Work Phone: [facility] Start: 11-28-2023 End: 11-28-2023 Office outpatient visit 15 minutes Robert Janes DO Work Phone: [facility] Comment on above: Third trimester preg margarita; 38 weeks gestation of Start: 11-28-2023 End: 11-28-2023 ambulatory ROBERT JANES Not Available Start: 11-21-2023 End: 11-21-2023 ambulatory ROBERT JANES Not Available Start: 11-13-2023 End: 11-13-2023 ambulatory ROBERT JANES Not Available Start: 10-28-2023 End: 10-28-2023 ambulatory NANO CR Not Available Start: 10-14-2023 End: 10-14-2023 ambulatory ROBERT JANES Not Available Start: 10-01-2023 End: 10-01-2023 ambulatory ROBERT JANES Not Available Start: 09-17-2023 End: 09-17-2023 ambulatory ROBERT JANES Not Available Start: 09-04-2023 End: 09-04-2023 ambulatory [facility] Start: 09-04-2023 End: 09-04-2023 Emergency department patient visit [facility] Start: 05-17-2023 Clinisync Result Encounter Robert Janes DO Work Phone: [facility] Unsolicited Start: 05-17-2023 Clinisync Result Encounter Robert Janes DO Work Phone: [facility] Unsolicited Start: 05-14-2023 Chart abstracting Robert Janes DO Work Phone: [facility] Start: 05-07-2023 Documentation procedure Leah Hernandez RN [facility] Certified Nurse [facility] Start: 04-19-2023 Telephone encounter Leah Hernandez RN [facility] Certified Nurse [facility] Start: 04-17-2023 Telephone encounter Leah Hernandez RN [facility] Certified Nurse [facility] Start: 04-05-2023 Orders Only Leah Hernandez RN [facility] Certified Nurse [facility] Comment on above: Nausea and vomiting during (Primary Dx) Start: 08-08-2022 End: 08-09-[address] BALDOMERO ELLER . Facility:[facility] Start: 06-02-2022 End: 06-03-[address] BALDOMERO ELLER . Facility:[facility] Start: 05-18-2022 Encounter for other preprocedural examination DR BALDOMERO ELLER . [facility] Start: 05-17-2022 End: 05-17-[address] BALDOMERO ELLER . Facility:[facility] Start: 05-16-2022 End: 05-17-[address] BALDOMERO ELLER . Facility:[facility] Start: 05-16-2022 End: 05-17-2022 Encounter for other preprocedural examination DR BALDOMERO ELLER . Facility:[facility] Start: 05-16-2022 End: 05-17-[address] BALDOMERO ELLER . Facility:[facility] Start: 04-19-2022 End: 04-20-[address] BALDOMERO ELLER . Facility:[facility] Start: 04-02-2022 End: 04-03-[address] ANA ARROYO Facility:[facility] Start: 03-29-2022 ambulatory [facility] Facility:[facility] Start: 03-28-2022 End: 03-29-[address] BALDOMERO ELLER . Facility:[facility] Start: 10-17-2021 End: 10-18-[address] BALDOMERO ELLER . Facility:[facility] Start: 10-12-2021 End: 10-12-[address] BALDOMERO ELLER . Facility:[facility] Start: 07-18-2021 End: 07-18-2021 Emergency department patient visit [facility] Start: 05-15-2021 End: 05-15-2021 Emergency department patient visit [facility] Procedures Date Procedure Procedure Detail Performing Clinician Start: 10-05-2024 Urnls dip stick/tabl et rgnt non-auto w/o micrscp Robert Janes DO Work Phone: Start: 09-07-2024 ALL RUBELLA IGG AB Core y Janes DO Work Phone: Start: 09-07-2024 HCV ANTIBODY RFX TO QUANT PCR Robert Janes DO Work Phone: Start: 09-07-2024 Urnls dip stick/tabl et rgnt non-auto w/o micrscp Robert Janes DO Work Phone: Start: 08-18-2024 BOX TEST Robert Fazi o DO Work Phone: Start: 08-06-2024 End: 08-06-2024 Urnls dip stick/tablet rgnt non-auto w/o micrscp Robert Janes DO Work Phone: Start: 07-03-2024 [facility] PREG QUANT HCG Core y Janes DO Work Phone: Start: 07-01-2024 [facility] PREG QUANT HCG Core y Janes DO Work Phone: Start: 05-17-2024 [facility] PREG QUANT HCG Core y Janes DO Work Phone: Start: 05-15-2024 [facility] PREG QUANT HCG Core y Janes DO Work Phone: Start: 12-06-2023 ALL CBC WITH AUTO DIFF Robert Janes DO Work Phone: Start: 12-04-2023 [facility] CBC WITH PLATEL ET NO DIFFERENTIAL Robert Janes DO Work Phone: Start: 07-01-2023 Cytp cerv/vag auto t hin layer prep mnl screen [facility] M[facility]S Work Phone: Start: 05-17-2023 ALL CBC WITH AUTO DIFF Robert Janes DO Work Phone: Start: 05-15-2021 X-ray of right knee Plan of Treatment Date Care Activity Detail Author Start: 05-15-2028 DTaP,Tdap and Td Vaccines (2 - Td or Tdap) DTaP,Tdap and Td Vaccines (2 - Td or Tdap) [facility] Start: 06-10-2025 End: 06-10-2025 ambulatory 06/10/2025 1:00 PM EST Initial [facility] [address] [place] [address] [facility] Start: 06-10-2025 End: 06-10-2025 Professional / ancillary services management 06/10/2025 12:30 PM EST Ancillary Procedure [facility] [address] [place] [place] [address] [facility] Start: 12-07-2024 Influenza vaccination Influenz a Vaccine (Season Ended) [facility] Start: 10-26-2024 End: 10-26-2024 Professional / ancillary services management 10/26/2024 11:00 AM EDT Ancillary Procedure [facility] [address] [place] [place] [address] [facility] Start: 10-19-2024 End: 10-19-2024 Patient encounter procedure 10/19/2024 9:00 AM EDT Routine [facility] [address] [place] [address] Robert Marrero DO [address] [place] [address] [facility] Start: 10-05-2024 End: 10-05-2025 12 lead ECG ECG 12 lead unit performed ECG Routine SOB (shortness of breath) Dizziness Expected: 10/05/2024 (Approximate), Expires: 10/05/2025 [facility] Work Phone: Comment on above: Expected: 10/05/2024 (Approximate), Expires: 10/05/2025 Start: 10-05-2024 End: 11-04-2024 Alpha fetoprotein, maternal Alpha fetoprotein, maternal Lab Routine Need for maternal serum alpha-protein (MSAFP) screening ([facility]) Expected: 10/05/2024 (Approximate), Expires: 11/04/2024 [facility] Comment on above: Expected: 10/05/2024 (Approximate), Expires: 11/04/2024 Start: 10-05-2024 End: 10-05-2026 Echocardiogram 2D complete Echocardiogram 2D complete Echocardiography Routine SOB (shortness of breath) Dizziness Expected: 10/05/2024 (Approximate), Expires: 10/05/2026 [facility] Comment on above: Expected: 10/05/2024 (Approximate), Expires: 10/05/2026 Start: 10-05-2024 End: 01-05-2025 US for US OB 14+ weeks anatomy scan Imaging Routine Screening, , for anatomic survey ([facility]) Expected: 10/05/2024, Expires: 01/05/2025 [facility] Comment on above: Expected: 10/05/2024 , Expires: 01/05/2025 Start: 10-05-2024 End: 10-05-2024 Patient encounter procedure 10/05/2024 11:10 AM EDT Routine [facility] [address] [place] [id number] Robert Marrero, DO [address] [place] [address] [facility] Start: 09-07-2024 End: 09-07-2024 Patient encounter procedure 09/07/2024 10:50 AM EDT Routine [facility] [address] [facility] [place] [id number] Robert Marrero, DO [address] [place] [address] [facility] Start: 08-06-2024 End: 08-06-2025 ABO/Rh ABO/Rh Lab Routine Missed menses , unspecified gestational age Expected: 08/06/2024 (Approximate), Expires: 08/06/2025 [facility] Comment on above: Expected: 08/06/2024 (Approximate), Expires: 08/06/2025 Start: 08-06-2024 End: 08-06-2025 Blood type and Indirect antibody screen panel - Blood Type and screen Lab Routine Missed menses , unspecified gestational age Expected: 08/06/2024 (Approximate), Expires: 08/06/2025 [facility] Comment on above: Expected: 08/06/2024 (Approximate), Expires: 08/06/2025 Start: 08-06-2024 End: 08-06-2025 Drugs of abuse panel - Urine by Screen method Rapid drug screen, urine Lab Routine , unspecified gestational age Encounter for supervision of normal first in first trimester Expected: 08/06/2024 (Approximate), Expires: 08/06/2025 [facility] Comment on above: Expected: 08/06/2024 (Approximate), Expires: 08/06/2025 Start: 07-31-2024 End: 10-30-2024 US Pelvis transvaginal US OB transvaginal Imaging Routine Missed menses Expected: 07/31/2024, Expires: 10/30/2024 [facility] Work Phone: Comment on above: Expected: 07/31/2024 , Expires: 10/30/2024 Start: 03-05-2024 Adult BMI Screening Adult BMI Screen ing [facility] Start: 03-05-2024 Tobacco Screening Tobacco Screening [facility] Start: 01-14-2024 End: 01-14-2024 Patient encounter procedure 01/14/2024 11:30 AM EDT Office Visit [facility] [address] [facility] [place] [id number] [facility] [address] [place] [address] Arrived [facility] Comment on above: Arrived Start: 12-08-2023 Influenza vaccination Influenza Vacc ine (#1) [facility] Start: 11-28-2023 End: 11-28-2023 Patient encounter procedure 11/28/2023 8:30 AM EDT Routine [facility] [address] [place] [place] [phone] Robert Marrero, [address] [place], [place] [id number] Arrived [facility] Comment on above: Arrived Start: 09-26-2023 Screening for Chlamy driss trachomatis Chlamydia Screening [facility] Start: 06-03-2023 End: 06-03-2023 Patient encounter procedure 06/03/2023 2:10 PM EST Routine [facility] [address] [place] [address] Robert Marrero, DO [address] [place] [address] [facility] Start: 04-17-2023 End: 04-17-2023 ambulatory 04/17/2023 8:30 AM EST Initial [facility] Certified Nurse [facility] [address] [address] [facility] Certified Nurse [facility] Start: 12-07-2022 Influenza vaccination Influenza Vacc ine [facility] Start: 2022 Screening for malign ant neoplasm of cervix Pap Smear [facility] Start: 07-18-2021 X-ray of left ankle XR ankle LT min 3V* [facility] Start: 07-18-2021 X-ray of left foot XR foot LT min 3V * [facility] Start: 10-08-2019 Adult BMI Follow Up Plan Adult BMI F ollow Up Plan [facility] Start: 2013 Depression Screening Depression Scre ening [facility] Bacteria identified in Urine by Culture Urine culture Microbiology Routine Missed menses Ordered: 08/06/2024 [facility] Comment on above: Ordered: 08/06/2024 CBC W Auto Different ial panel - Blood CBC and differential Lab Routine Missed menses , unspecified gestational age Ordered: 08/06/2024 [facility] Comment on above: Ordered: 08/06/2024 CHLAMYDIA TRACHOMATI S (GENITO/STI) CHLAMYDIA TRACHOMATIS (GENITO/STI) Lab Routine Exposure to STD Ordered: 10/05/2024 [facility] Comment on above: Ordered: 10/05/2024 Cytology Cervical or vaginal smear or scraping study Pap Smear Pathology and Cytology Routine Well woman exam with routine gynecological exam Ordered: 10/05/2024 [facility] Comment on above: Ordered: 10/05/2024 Hemoglobin A1c/Hemoglobin.total in Blood Hemoglobin A1c Lab Routine Missed menses , unspecified gestational age Ordered: 08/06/2024 [facility] Comment on above: Ordered: 08/06/2024 Hepatitis B virus surface Ag [Presence] in Serum or Plasma by Immunoassay Hepatitis B surface antigen Lab Routine Missed menses , unspecified gestational age Ordered: 08/06/2024 [facility] Comment on above: Ordered: 08/06/2024 Hepatitis C virus Ab [Presence] in Serum or Plasma by Immunoassay Hepatitis C antibody Lab Routine Missed menses , unspecified gestational age Ordered: 08/06/2024 [facility] Comment on above: Ordered: 08/06/2024 HIV-1/HIV-2 antigen/antibody combination immunoassay HIV-1 and HIV-2 antibodies Lab Routine Missed menses , unspecified gestational age Ordered: 08/06/2024 [facility] Comment on above: Ordered: 08/06/2024 Neisseria gonorrhoea e DNA [Presence] in Unspecified specimen by MILY with probe detection Neisseria gonorrhea DNA probe, direct Lab Routine Exposure to STD Ordered: 10/05/2024 [facility] Comment on above: Ordered: 10/05/2024 Patient Education [facility] Work Phone: Patient referral [facility] Work Phone: Reagin Ab [Presence] in Serum by RPR RPR Lab Routine Missed menses , unspecified gestational age Ordered: 08/06/2024 [facility] Comment on above: Ordered: 08/06/2024 Rubella antibody, IgG Rubella an tibody, IgG Lab Routine Missed menses , unspecified gestational age Ordered: 08/06/2024 [facility] Comment on above: Ordered: 08/06/2024 SURESWAB(R) ADVANCED VAGINITIS PLUS, TMA SURESWAB(R) ADVANCED VAGINITIS PLUS, TMA Pathology and Cytology Routine Exposure to STD Ordered: 10/05/2024 [facility] Work Phone: Comment on above: Ordered: 10/05/2024 US Pelvis transvaginal US OB tra nsvaginal Imaging Routine Missed menses 08/06/2024 1:33 PM EDT [facility] Payers Date Payer Category Payer Medicaid (Managed Care) [facility] MEDICAID [id number] 2002 Medicaid [id number] 2001 Unknown [id number] 2.16.840.1.978155.3.579.2. 593 2001 Unknown [id number] 2.16.840.1.664149.3.579.2. 593 2001 Unknown [id number] 2.16.840.1.643175.3.579.2. 593 2001 Unknown [id number] 2.16.840.1.141202.3.579.2. 593 2001 Unknown [id number] 2.16.840.1.865064.3.579.2. 593 2001 Unknown [id number] 2.16.840.1.546059.3.579.2. 593 2001 Unknown [id number] 2.16.840.1.557483.3.579.2. 593 2001 Unknown [id number] 2.16.840.1.872465.3.579.2. 593 2001 Unknown [id number] 2.16.840.1.914135.3.579.2. 593 2001 Unknown [id number] 2.16.840.1.813162.3.579.2. 593 2001 Unknown [id number] 2.16.840.1.210339.3.579.2. 593 2001 Unknown [id number] 2.16.840.1.502565.3.579.2. 1286 2001 Unknown [id number] 2.16.840.1.784096.3.579.2. 1286 2001 Unknown [id number] 2.16.840.1.610559.3.579.2. 1286 2001 Unknown [id number] 2.16.840.1.707402.3.579.2. 1286 2001 Unknown [id number] 2.16.840.1.544375.3.579.2. 128 2001 Unknown [id number] 2.16.840.1.416620.3.579.2. 1286 2001 Unknown [id number] 2.16.840.1.053881.3.579.2. 1286 2001 Unknown [id number] 2.16.840.1.921438.3.579.2. 9 2001 Unknown [id number] 2.16.840.1.812168.3.579.2. 9 2001 Unknown [id number] 2.16.840.1.693877.3.579.2. 1259 2001 Unknown [id number] 2.16.840.1.707788.3.579.2. 1258 2001 Unknown [id number] 2.16.840.1.486777.3.579.2. 9 2001 Unknown [id number] 2.16.840.1.278955.3.579.2. 9 2001 Unknown [id number] 2.16.840.1.899724.3.579.2. 9 2001 Unknown [id number] 2.16.840.1.201807.3.579.2. 9 2001 Unknown [id number] 2.16.840.1.367759.3.579.2. 9 2001 Unknown [id number] 2.16.840.1.418265.3.579.2. 1258 2001 Unknown [id number] 2.16.840.1.087926.3.579.2. 1258 2001 Unknown [id number] 2.16.840.1.122581.3.579.2. 2001 Unknown [id number] 2.16.840.1.448785.3.579.2. 8 2001 Unknown [id number] 2.16.840.1.614414.3.579.2. 2001 Unknown [id number] 2.16.840.1.635004.3.579.2. 8 2001 Unknown [id number] 2.16.840.1.294909.3.579.2. 2001 Unknown [id number] 2.16.840.1.989678.3.579.2. 8 2001 Unknown [id number] 2.16.840.1.869493.3.579.2. 2001 Unknown [id number] 2.16.840.1.522418.3.579.2. 718 1959 Unknown [id number] Self-pay Self Pay [id number] Social History Date Type Detail Facility Start: 07-18-2021 End: 09-17-2023 Tobacco smoking status ALIS Never smoked tobacco (finding) [facility] Start: 2001 Sex Assigned At Female [facility] Start: 05-14-2023 Alcohol intake Lifetime non-drinker (finding) [facility] Start: 03-20-2023 [facility] Start: 05-01-2023 Gender identity Identifies as female gender (finding) [facility] Start: 05-01-2023 Sexual orientation Heterosexual (finding) [facility] Start: 05-14-2023 End: 08-11-2024 History of Social function [facility] Start: 05-14-2023 End: 08-11-2024 Tobacco use panel [facility] Start: 08-01-2022 End: 09-17-2023 Tobacco use and exposure Smokeless tobacco non-user [facility] Start: 01-03-2024 End: 10-05-2024 Alcoholic beverage intake Ex-drinker (finding) [facility] History of tobacco use Passive smoker [facility] Housing Instability Unknown [facility] Start: 08-14-2022 Alcohol Comment social [facility] Start: 2001 Sex Assigned At Not on file [facility] Clinical Notes 04-17-2023 to 10-05-2024 Catrina Samuels NP - 10/05/2024 11:10 AM EDTCatrina Samuels NP - 09/07/2024 10:50 AM EDTMneeru Tavares MA - 08/06/2024 1:30 PM GENE Worthy - 01/14/2024 11:30 AM EDT Note Date & Type Note Facility 10-05-2024 History of Presen t illness Narrative Reason for Appointment: Patient ID: Lia Desai is a 23 y.o. female who presents [...] Diagnosis Date Noted 38 weeks gestation of ([facility]) 11/28/2023 Resolved Ambulatory Problems Diagnosis Date Noted [...] nursing note reviewed. Exam conducted with a boom boss present. Vitals: Estimated body mass index is 40.51 kg/m as calculated from the following: Height as of 08/08/22: 5' 6 . Weight as of this encounter: 251 lb. BP: 124/78 No LMP recorded (lmp unknown). Patient is . ASSESSMENT & PLAN ICD-10-CM 1. Second trimester ([facility]) Z34.92 POCT urinalysis dipstick manually resulted 2. 17 weeks gestation of ([facility]) Z3A.17 3. Well woman exam with routine gynecological exam Z01.419 Pap Smear 4. Exposure to STD Z20.2 SURESWAB(R) ADVANCED VAGINITIS PLUS, TMA CHLAMYDIA TRACHOMATIS (GENITO/STI) Neisseria gonorrhea DNA probe, direct 5. Need for maternal serum alpha-protein (MSAFP) screening ([facility]) Z36.1 Alpha fetoprotein, maternal Alpha fetoprotein, maternal 6. Screening, , for anatomic survey ([facility]) Z36.89 US OB 14+ weeks anatomy scan [...] Robert Marrero DO documented in this encounter [facility] 09-20-2024 Note Patient Education Ma terials Follows:Disease Upper Respiratory Infection, Adult An upper respiratory infection (URI) affects the nose, throat, and upper airways that lead to the lungs. The most common type of URI is often called the common cold. URIs usually get better on their own, without medical treatment. What are the causes? A URI is caused by a germ (virus). You may catch these germs by: ? Breathing in droplets from an infected person's cough or sneeze. ? Touching something that has the germ on it (is contaminated) and then touching your mouth, [...] have nasal allergies or asthma. ? You have a lot of stress. ? You have poor nutrition. What are the signs or symptoms? ? Runny or stuffy (congested) nose. ? Cough. ? Sneezing. ? Sore throat. ? Headache. ? Feeling tired (fatigue). ? Fever. ? Not wanting to eat as much as usual. ? Pain in your forehead, behind your eyes, and over your cheekbones (sinus pain). ? Muscle aches. ? Redness or irritation of the eyes. ? Pressure in the ears or face. How is this treated? URIs usually get better on their own within 7?10 days. Medicines cannot cure URIs, but your doctor may recommend certain medicines to help relieve symptoms, such as: ? Dbjm-ust-obsrqnj cold medicines. ? Medicines to reduce coughing (cough suppressants). Coughing is a type of defense against infection that helps to clear the nose, throat, windpipe, and lungs (respiratory system). Take these medicines only as told by your doctor. ? Medicines to lower your fever. Follow these instructions at home: Activity ? Rest as needed. ? If you have a fever, stay home from work or school until your fever is gone, or until your doctor says you may return to work or school. ? You should stay home until you cannot spread the infection anymore (you are not contagious). ? Your doctor may have you wear a face mask so you have less risk of spreading the infection. Relieving symptoms ? Rinse your mouth often with salt water. To make salt water, dissolve ??1 tsp (3?6 g) of salt in 1 cup (237 mL) of warm water. ? Use a cool-mist humidifier to add moisture to the air. This can help you breathe more easily. Eating and drinking ? Drink enough fluid to keep your pee (urine) pale yellow. ? Eat soups and other clear broths. General instructions ? Take hmtw-msd-uekneyy and prescription medicines only as told by your doctor. ? Do not smoke or use any products that contain nicotine or tobacco. If you need help quitting, ask your doctor. ? Avoid being where people are smoking (avoid secondhand smoke). ? Stay up to date on all your shots (immunizations), and get the flu shot every year. ? Keep all follow-up visits. How to prevent the spread of infection to others ? Wash your hands with soap and water for at least 20 seconds. If you cannot use soap and water, use hand supervisor paper products. ? Avoid touching your mouth, face, eyes, or nose. ? Cough or sneeze into a tissue or your sleeve or elbow. Do not cough or sneeze into your hand or into the air. Contact a doctor if: ? You are getting worse, not better. ? You have any of these: ? A fever or chills. ? Brown or red mucus in your nose. ? Yellow or brown fluid (discharge)coming from your nose. ? Pain in your face, especially when you bend forward. ? Swollen neck glands. ? Pain when you swallow. ? White areas in the back of your throat. Get help right away if: ? You have shortness of breath that gets worse. ? You have very bad or constant: ? Headache. ? Ear pain. ? Pain in your forehead, behind your eyes, and over your cheekbones (sinus pain). ? Chest pain. ? You have long-lasting (chronic) lung disease along with any of these: ? Making high-pitched whistling sounds when you breathe, most often when you breathe out (wheezing). ? Long-lasting cough (more than 14 days). ? Coughing up blood. ? A change in your usual mucus. ? You have a stiff neck. ? You have changes in your: ? Vision. ? Hearing. ? Thinking. ? Mood. These symptoms may be an emergency. Get help right away. Call 911. ? Do not wait to see if the symptoms will go away. ? Do not drive yourself to the hospital. Summary ? An upper respiratory infection (URI) is caused by a germ (virus). The most common type of URI is often called the common cold. ? URIs usually get better within 7?10 days. ? Take rwev-xsc-imjqfjs and prescription medicines only as told by your doctor. This information is not intended to replace advice given to (more content not included)... [facility] 09-07-2024 History of Presen t illness Narrative Reason for Appointment: Patient ID: Lia Desai is a 23 y.o. female who presents for Routine Visit Patient presents today for Return OB appointment. MEDICATIONS Current Outpatient Medications Medication Instructions docusate sodium (COLACE) 100 mg, Oral, 2 times daily metoclopramide (REGLAN) 10 mg, Oral, 3 times daily before meals, Take 1 tablet by mouth 30 minutes prior to meals 3 times daily as needed for nausea. 27-1 MG tablet 1 tablet, Oral, Daily ALLERGIES Allergies Allergen Reactions Azithromycin Macrolides And Ketolides Unknown Metronidazole GI intolerance Other Reaction(s): Vomiting Wound Dressing Adhesive PROBLEMS Active Ambulatory Problems Diagnosis Date Noted 38 weeks gestation of 11/28/2023 Resolved Ambulatory Problems Diagnosis Date Noted No Resolved Ambulatory Problems Past Medical History: Diagnosis Date Bacterial vaginosis Chlamydia Depression ([facility]) Family history of breast cancer Family history of uterine cancer HISTORY PAST MEDICAL HISTORY SOCIAL HISTORY Past Medical History: Diagnosis Date Bacterial vaginosis Chlamydia Depression ([facility]) Family history of breast cancer Family history [...] Date DILATION AND CURETTAGE OF UTERUS TONSILLECTOMY 2012 REVIEW OF SYSTEMS Review of Systems: Review of Systems Constitutional: Negative. HENT: Negative. Eyes: Negative. Respiratory: Negative. Cardiovascular: Negative. Gastrointestinal: Positive for nausea and vomiting. Genitourinary: Negative. Musculoskeletal: Negative. Skin: Negative. Neurological: [...] nursing note reviewed. Exam conducted with a boom boss present. Vitals: Estimated body mass index is 41.08 kg/m as calculated from the following: Height as of 08/08/22: 5' 6 . Weight as of this encounter: 254 lb 8 oz. BP: 108/80 No LMP recorded (lmp unknown). Patient is . ASSESSMENT & PLAN ICD-10-CM 1. Constipation, unspecified constipation type K59.00 docusate sodium (Colace) 100 MG capsule 2. First trimester Z34.91 POCT urinalysis dipstick manually resulted 3. 13 weeks gestation of Z3A.13 4. Nausea and vomiting in O21.9 metoclopramide (Reglan) 10 MG tablet Return OB: Patient presents today for a routine obstetrics appointment. Patient is currently 13w1d . Patient states she is doing well but has complaints of being tired due to current . Orders Placed This Encounter Procedures POCT urinalysis dipstick manually resulted Follow Up: Patient is to return to office in 4 week for routine OB appointment. Documented by Catrina Samuels NP on behalf of: Robert Marrero DO documented in this encounter [facility] 08-11-2024 Note Education Materials Obstetrics and Gynecology Morning Sickness Morning sickness is when you throw up or feel like you may throw up during . This condition often occurs in the morning, but it can also occur at any time of day. Morning sickness is most common during the first three months of , but it can go on throughout the . Morning sickness is usually harmless. But if you throw up all the time, you should see your health care provider. You may also hear this condition called nausea and vomiting of . What are the causes? The cause of morning sickness is not known. It may be linked to changes in hormones during . What increases the risk? You're more likely to have morning sickness if: ? You had morning sickness in another . ? You're with more than one baby, such as twins. ? You had morning sickness in other pregnancies. ? You have had motion sickness before you were . ? You have had bad headaches or migraines before you were . What are the signs or symptoms? Symptoms of morning sickness include: ? Feeling like you may throw up. ? Throwing up. How is this diagnosed? Morning sickness is diagnosed based on your symptoms. How is this treated? Treatment is usually not needed for morning sickness. You may only need to change what you eat. In some cases, your provider may give you: ? Vitamin B6 supplements. ? Medicines to prevent throwing up. ? Uri. Follow these instructions at home: Medicines ? Take your medicines only as told by your provider. ? Do not use any prescription, rbdp-vsq-cizhqnp, or herbal medicines for morning sickness without first talking with your provider. ? Take vitamins. These can stop or lessen the symptoms of morning sickness. ? If you feel like you may throw up after taking vitamins, take them at night or with a snack. Eating and drinking ? Eat dry toast or crackers before getting out of bed. ? Eat 5 or 6 small meals a day. ? Try uri prabhakar made with real uri, uri tea, or uri candies. ? Drink fluids throughout the day. ? Eat protein foods when you need a snack. Nuts, yogurt, and cheese are good choices. ? Eat dry and bland foods like rice or baked potatoes. Foods that are high in carbohydrates are often helpful. ? Have someone cook for you if the smell of food makes you want to throw up. Foods to avoid ? [place] foods. ? Fatty foods. ? Spicy foods. General instructions ? Try to avoid smells that make you feel sick. ? Use an air purifier to keep the air in your house free of smells. ? Try using an acupressure wristband. This is a wristband that's used to treat motion sickness. ? Try acupuncture. In this treatment, a provider puts thin needles into certain areas of your body to make you feel better. ? [place] your teeth after throwing up or rinse with a mix of baking soda and water. The acid in throw-up can hurt your teeth. Contact a health care provider if: ? Your symptoms do not get better. ? You feel dizzy or light-headed. ? You're losing weight. Get help right away if: ? The feeling that you may throw up will not go away, or you can't stop throwing up. ? You faint. ? You have very bad pain in your belly. This information is not intended to replace advice given to you by your health care provider. Make sure you discuss any questions you have with your health care provider. Document Revised: 12/26/2023 Document Reviewed: 07/04/2023 [employer] Patient Education ? 2023 [employer]. [facility] 08-06-2024 History of Presen t illness Narrative Reason for Appointment: Patient ID: Lia Desai is a 23 y.o. female who presents for Amenorrhea Patient presents today for a Nurse OB Intake appointment. Patient is 8w4d with a Estimated Date of Delivery: 03/14/25 OB History Para Term AB Living 5 1 1 3 SAB IAB Ectopic Multiple Live Births 3 # Outcome Date GA Lbr Sean/2nd Weight Sex Type Anes PTL Lv 5 Current 4 Term 12/05/23 39w1d 6 lb 15 oz F Vag-Spont 3 SAB 05/17/22 SAB 2 SAB 1 SAB Current Medications: has a current medication list which includes the following prescription(s): metoclopramide and . Medical History: Active Ambulatory Problems Diagnosis Date Noted 38 weeks gestation of 11/28/2023 Resolved Ambulatory Problems Diagnosis Date Noted No Resolved Ambulatory Problems Past Medical History: Diagnosis Date Bacterial vaginosis Chlamydia Depression ([facility]) Family history of breast cancer Family history of uterine cancer Family History Problem Relation Name Age of Onset No Known Problems Father Cancer Mother's Sister Cancer Mother Rachelle Social History Tobacco Use Smoking status: Never Smokeless tobacco: Never Substance Use Topics Alcohol use: Not Currently Alcohol/week: 3.0 standard drinks of alcohol Types: 3 Standard drinks or equivalent per week Drug use: Not Currently Types: Marijuana Past Surgical History: Procedure Laterality Date DILATION AND CURETTAGE OF UTERUS TONSILLECTOMY 2011 Allergies Allergen Reactions Azithromycin Macrolides And Ketolides Unknown Metronidazole GI intolerance Other Reaction(s): Vomiting Wound Dressing Adhesive Vitals: Estimated body mass index is 43 kg/m as calculated from the following: Height as of 08/08/22: 5' 6 . Weight as of 01/14/24: 266 lb 6.4 oz. BP: No LMP recorded (lmp unknown). Patient is . Assessment/Plan Diagnoses and all orders for this visit: Missed menses - US OB transvaginal; Future - Type and screen; Future - ABO/Rh; Future - CBC and differential - Hemoglobin A1c - RPR - Rubella antibody, IgG - Hepatitis B surface antigen - Hepatitis C antibody - HIV-1 and HIV-2 antibodies - Urine culture - POCT , urine manually resulted - POCT urinalysis dipstick manually resulted , unspecified gestational age - Type and screen; Future - ABO/Rh; Future - CBC and differential - Hemoglobin A1c - RPR - Rubella antibody, IgG - Hepatitis B surface antigen - Hepatitis C antibody - HIV-1 and HIV-2 antibodies - Rapid drug screen, urine; Future Encounter for supervision of normal first in first trimester - Rapid drug screen, urine; Future Nurse Note: OB Intake: Patient presents today for first OB visit. Patients history has been reviewed in great detail including any potential risks. Patient signed consent forms and patient desires testing in both trimesters. Patient currently has no complaints and has been advised to drink 6-8 glasses of water a day, eat no raw or undercooked meat, and stay away from [facility]. Patient has also been advised to not change litter boxes and eat 6 small meals a day. Patient has been consulted regarding the do's and don'ts of . Patient was given labs and all questions and concerns were answered. Follow Up: Patient is to return in 4 weeks for routine OB appointment. Follow Up: Patient is to have labs drawn at directed and return to office for initial OB appointment with provider. Patient may call office as needed with any concerns or questions. Nurse Visit Completed by: Zaida Tavares MA documented in this encounter [facility] 06-07-2024 Note Education Materials Orthopedics Flank Pain, Adult Flank pain is pain in your side. The flank is the area on your side between your upper belly (abdomen) and your spine. The pain may occur over a short time (acute), or it may be long-term or come back often (chronic). It may be mild or very bad. Pain in this area can be caused by many different things. Follow these instructions at home: ? Drink enough fluid to keep your pee (urine) pale yellow. ? Rest as told by your doctor. ? Take skqp-ebe-kkwjcqz and prescription medicines only as told by your doctor. ? Keep a journal to keep track of: ? What has caused your flank pain. ? What has made your flank pain feel better. ? Keep all follow-up visits. Contact a doctor if: ? Medicine does not help your pain. ? You have new symptoms. ? Your pain gets worse. ? Your symptoms last longer than 2?3 days. ? You have trouble peeing. ? You are peeing more often than normal. Get help right away if: ? You have trouble breathing. ? You are short of breath. ? Your belly hurts, or it is swollen or red. ? You feel like you may vomit (nauseous). ? You vomit. ? You feel faint, or you faint. ? You have blood in your pee. ? You have flank pain and a fever. These symptoms may be an emergency. Get help right away. Call your local emergency services (911 in the [place] ? Do not wait to see if the symptoms will go away. ? Do not drive yourself to the hospital. Summary ? Flank pain is pain in your side. The flank is the area of your side between your upper belly (abdomen) and your spine. ? Flank pain may occur over a short time (acute), or it may be long-term or come back often (chronic). It may be mild or very bad. ? Pain in this area can be caused by many different things. ? Contact your doctor if your symptoms get worse or last longer than 2?3 days. This information is not intended to replace advice given to you by your health care provider. Make sure you discuss any questions you have with your health care provider. Document Revised: 06/05/2021 Document Reviewed: 06/05/2021 [employer] Patient Education ? [facility] Note Education Materials Infectious Disease Influenza, Adult Influenza is also called the flu. It is an infection in the lungs, nose, and throat (respiratory tract). It spreads easily from person to person (is contagious). The flu causes symptoms that are like a cold, along with high fever and body aches. What are the causes? This condition is caused by the influenza virus. You can get the virus by: ? Breathing in droplets that are in the air after a person infected with the flu coughed or sneezed. ? Touching something that has the virus on it and then touching your mouth, nose, or eyes. What increases the risk? Certain things may make you more likely to get the flu. These include: ? Not washing your hands often. ? Having close contact with many people during cold and flu season. ? Touching your mouth, eyes, or nose without first washing your hands. ? Not getting a flu shot every year. You may have a higher risk for the flu, and serious problems, such as a lung infection (pneumonia), if you: ? Are older than 65. ? Are . ? Have a weakened disease-fighting system (immune system) because of a disease or because you are taking certain medicines. ? Have a long-term (chronic) condition, such as: ? Heart, kidney, or lung disease. ? Diabetes. ? Asthma. ? Have a liver disorder. ? Are very overweight (morbidly obese). ? Have anemia. What are the signs or symptoms? Symptoms usually begin suddenly and last 4?14 days. They may include: ? Fever and chills. ? Headaches, body aches, or muscle aches. ? Sore throat. ? Cough. ? Runny or stuffy (congested) nose. ? Feeling discomfort in your chest. ? Not wanting to eat as much as normal. ? Feeling weak or tired. ? Feeling dizzy. ? Feeling sick to your stomach or throwing up. How is this treated? If the flu is found early, you can be treated with antiviral medicine. This can help to reduce how bad the illness is and how long it lasts. This may be given by mouth or through an IV tube. Taking care of yourself at home can help your symptoms get better. Your doctor may want you to: ? Take clsv-kda-tzdnrqg medicines. ? Drink plenty of fluids. The flu often goes away on its own. If you have very bad symptoms or other problems, you may be treated in a hospital. Follow these instructions at home: Activity ? Rest as needed. Get plenty of sleep. ? Stay home from work or school as told by your doctor. ? Do not leave home until you do not have a fever for 24 hours without taking medicine. ? Leave home only to go to your doctor. Eating and drinking ? Take an ORS (oral rehydration solution). This is a drink that is sold at pharmacies and stores. ? Drink enough fluid to keep your pee pale yellow. ? Drink clear fluids in small amounts as you are able. Clear fluids include: ? Water. ? Ice chips. ? Fruit juice mixed with water. ? Low-calorie sports drinks. ? Eat bland foods that are easy to digest. Eat small amounts as you are able. These foods include: ? Bananas. ? Applesauce. ? Rice. ? Lean meats. ? [place]. ? Crackers. ? Do not eat or drink: ? Fluids that have a lot of sugar or caffeine. ? Alcohol. ? Spicy or fatty foods. General instructions ? Take ayhn-ret-unoagww and prescription medicines only as told by your doctor. ? Use a cool mist humidifier to add moisture to the air in your home. This can make it easier for you to breathe. ? When using a cool mist humidifier, clean it daily. Empty water and replace with clean water. ? Cover your mouth and nose when you cough or sneeze. ? Wash your hands with soap and water often and for at least 20 seconds. This is also important after you cough or sneeze. If you cannot use soap and water, use alcohol-based hand supervisor paper products. ? Keep all follow-up visits. How is this prevented? ? Get a flu shot every year. You may get the flu shot in late summer, fall, or winter. Ask your doctor when you should get your flu shot. ? Avoid contact with people who are sick during fall and winter. This is cold and flu season. Contact a doctor if: ? You get new symptoms. ? You have: ? Chest pain. ? Watery poop (diarrhea). ? A fever. ? Your cough gets worse. ? You start to have more mucus. ? You feel sick to your stomach. ? You throw up. Get help right away if you: ? Have shortness of breath. ? Have trouble breathing. ? Have skin or nails that turn a bluish color. ? Have very bad pain or stiffness in your neck. ? Get a sudden headache. ? Get sudden pain in your face or ear. ? Cannot eat or drink without throwing up. These symptoms may represent a serious problem that is an emergency. Get medical help right away. Call your local emergency services (911 in the [place] ? Do not wait to see if the symptoms will go away. ? Do not drive yourself to the hospital. Summary ? (more content not included)... [facility] 03-20-2024 Note Education Materials Obstetrics and Gynecology Bacterial Vaginosis Bacterial vaginosis is an infection of the vagina. It happens when too many normal germs (healthy bacteria) grow in the vagina. This infection can make it easier to get other infections from sex (STIs). It is very important for women to get treated. This infection can cause babies to be born early or at a low weight. What are the causes? This infection is caused by an increase in certain germs that grow in the vagina. You cannot get this infection from toilet seats, bedsheets, swimming pools, or things that touch your vagina. What increases the risk? ? Having sex with a new person or more than one person. ? Having sex without protection. ? Douching. ? Having an intrauterine device (IUD). ? Smoking. ? Using drugs or drinking alcohol. These can lead you to do things that are risky. ? Taking certain antibiotic medicines. ? Being . What are the signs or symptoms? Some women have no symptoms. Symptoms may include: ? A discharge from your vagina. It may be sandy or white. It can be watery or foamy. ? A fishy smell. This can happen after sex or during your menstrual period. ? Itching in and around your vagina. ? A feeling of burning or pain when you pee (urinate). How is this treated? This infection is treated with antibiotic medicines. These may be given to you as: ? A pill. ? A cream for your vagina. ? A medicine that you put into your vagina (suppository). If the infection comes back after treatment, you may need more antibiotics. Follow these instructions at home: Medicines ? Take bnvp-tlm-zbpmejn and prescription medicines as told by your doctor. ? Take or use your antibiotic medicine as told by your doctor. Do not stop taking or using it, even if you start to feel better. General instructions ? If the person you have sex with is a woman, tell her that you have this infection. She will need to follow up with her doctor. If you have a male partner, he does not need to be treated. ? Do not have sex until you finish treatment. ? Drink enough fluid to keep your pee pale yellow. ? Keep your vagina and butt clean. ? Wash the area with warm water each day. ? Wipe from front to back after you use the toilet. ? If you are a baby, ask your doctor if you should keep doing so during treatment. ? Keep all follow-up visits. How is this prevented? Self-care ? Do not douche. ? Use only warm water to wash around your vagina. ? Wear underwear that is cotton or lined with cotton. ? Do not wear tight pants and pantyhose, especially in the summer. Safe sex ? Use protection when you have sex. This includes: ? Use condoms. ? Use dental dams. This is a thin layer that protects the mouth during oral sex. ? Limit how many people you have sex with. To prevent this infection, it is best to have sex with just one person. ? Get tested for STIs. The person you have sex with should also get tested. Drugs and alcohol ? Do not smoke or use any products that contain nicotine or tobacco. If you need help quitting, ask your doctor. ? Do not use drugs. ? Do not drink alcohol if: ? Your doctor tells you not to drink. ? You are , may be , or are planning to become . ? If you drink alcohol: ? Limit how much you have to 0?1 drink a day. ? Know how much alcohol is in your drink. In the [place] one drink equals one 12 oz bottle of beer (355 mL), one 5 oz glass of wine (148 mL), or one 1? oz glass of hard liquor (44 mL). Where to find more information ? Centers for Disease Control and Prevention: www.cdc.gov ? [place] [employer]: www.ashastd.org ? Office on Women's Health: www.womenshealth.gov Contact a doctor if: ? Your symptoms do not get better, even after you are treated. ? You have more discharge or pain when you pee. ? You have a fever or chills. ? You have pain in your belly (abdomen) or in the area between your hips. ? You have pain with sex. ? You bleed from your vagina between menstrual periods. Summary ? This infection can happen when too many germs (bacteria) grow in the vagina. ? This infection can make it easier to get infections from sex (STIs). Treating this can lower that chance. ? Get treated if you are . This infection can cause babies to be born early. ? Do not stop taking or using your antibiotic medicine, even if you start to feel better. This information is not intended to replace advice given to you by your health care provider. Make sure you discuss any questions you have with your health care provider. Document Revised: 09/22/2020 Document Reviewed: 09/22/2020 [employer] Patient Education ? 2023 [employer]. Orthopedics Acute Back Pain, Adult Acute back pain is sudden and usually short-lived. It is often caused by an injury to the muscles and tissues in the back. The injury may resul (more content not included)... [facility] 01-28-2024 Note Patient Education Ma terials Follows:Disease Upper [...] to help relieve symptoms, such as: ? Kiog-obh-zuwsmyx cold medicines. ? Cough suppressants. Coughing is [...] other clear broths. General instructions ? Take nkks-fof-lfwcrid and prescription medicines only as told by [...] and water are not available, use hand supervisor paper products. ? Avoid touching your mouth, face, eyes, [...] These symptoms may (more content not included)... [facility] 01-14-2024 History of Presen t illness Narrative Reason for Appointment: Patient ID: Lia Desai is a 23 y.o. female who presents for Follow-up Patient presents today for Post Follow Up appointment. MEDICATIONS Current Outpatient Medications Medication Instructions 27-1 MG tablet 1 tablet, Oral, Daily ALLERGIES Allergies Allergen Reactions Azithromycin Macrolides And Ketolides Unknown Metronidazole GI intolerance Other Reaction(s): Vomiting Wound Dressing Adhesive PROBLEMS Active Ambulatory Problems Diagnosis Date Noted 38 weeks gestation of 11/28/2023 Resolved Ambulatory Problems Diagnosis Date Noted No Resolved Ambulatory Problems Past Medical History: Diagnosis Date Bacterial vaginosis Chlamydia Depression ([facility]) Family history of breast cancer Family history of uterine cancer HISTORY PAST MEDICAL HISTORY SOCIAL HISTORY Past Medical History: Diagnosis Date Bacterial vaginosis Chlamydia Depression ([facility]) Family history of breast cancer Family history [...] HENT: Negative. Eyes: Negative. Respiratory: Negative. Cardiovascular: Negative. Gastrointestinal: Negative. Genitourinary: Negative. Musculoskeletal: Negative. Skin: Negative. Neurological: Negative. All other systems reviewed and are negative. Hematological: Negative. Endocrine: Negative. Allergic/Immunologic: Negative. OBJECTIVE Objective: Physical Exam Constitutional: Appearance: Normal appearance. She is well-developed and normal weight. HENT: Head: Normocephalic. Cardiovascular: Rate and Rhythm: Normal rate and regular rhythm. Pulses: Normal pulses. Pulmonary: Effort: Pulmonary effort is normal. Breath sounds: Normal breath sounds. Abdominal: General: Bowel sounds are normal. There is no distension. Palpations: Abdomen is soft. Tenderness: There is no abdominal tenderness. There is no guarding or rebound. Musculoskeletal: General: No swelling. Normal range of motion. Right lower leg: No edema. Left lower leg: No edema. Neurological: General: No focal deficit present. Mental Status: She is alert and oriented to person, place, and time. Skin: General: Skin is warm and dry. Psychiatric: Mood and Affect: Mood normal. Behavior: Behavior normal. Thought Content: Thought content normal. Judgment: Judgment normal. Vitals and nursing note reviewed. Exam conducted with a boom boss present. Vitals: Estimated body mass index is 43 kg/m as calculated from the following: Height as of 08/08/22: 5' 6 . Weight as of this encounter: 266 lb 6.4 oz. BP: 120/70 Patient's last menstrual period was 03/06/2023. ASSESSMENT & PLAN ICD-10-CM 1. 6 weeks follow-up Z39.2 Post Follow Up: Patient is doing well but has no complaints. Patient presents today for 6 week visit. Patient is s/p Vaginal delivery. Patient states depression but denies suicidal and homicidal ideations. All options were discussed with the patient regarding control and patient desires none at this time. Follow Up: Patient is to return for annual unless needed otherwise. Documented by Margi Marie LPN on behalf of: GENE Gutierrez documented in this encounter [facility] 11-28-2023 History of Presen t illness Narrative Reason for Appointment: Patient ID: Lia Desai is a 23 y.o. female who presents for Routine Visit Patient presents today for Return OB appointment. MEDICATIONS Current Outpatient Medications Medication Instructions ondansetron ODT (ZOFRAN-ODT) 4 mg, Oral, Every 6 hours PRN 27-1 MG tablet 1 tablet, Oral, Daily ALLERGIES Allergies Allergen Reactions Azithromycin Macrolides And Ketolides Unknown Metronidazole GI intolerance Other Reaction(s): Vomiting Wound Dressing Adhesive PROBLEMS Active Ambulatory Problems Diagnosis Date Noted No Active Ambulatory Problems Resolved Ambulatory Problems Diagnosis Date Noted No Resolved Ambulatory Problems Past Medical History: Diagnosis Date Bacterial vaginosis Chlamydia Depression ([facility]) Family history of breast cancer Family history of uterine cancer HISTORY PAST MEDICAL HISTORY SOCIAL HISTORY Past Medical History: Diagnosis Date Bacterial vaginosis Chlamydia Depression ([facility]) Family history of breast cancer Family history [...] SYSTEMS Review of Systems: Review of Systems All other systems reviewed and are negative. OBJECTIVE Objective: Physical Exam Constitutional: Appearance: Normal [...] nursing note reviewed. Exam conducted with a boom boss present. Vitals: Estimated body mass index is 44.89 kg/m as calculated from the following: Height as of 08/08/22: 5' 6 . Weight as of this encounter: 278 lb 1.6 oz. BP: 132/86 Patient's last menstrual period was 03/06/2023. ASSESSMENT & PLAN ICD-10-CM 1. Third trimester Z34.93 Patient presents today for a routine obstetrics appointment. Patient is currently 38w1d with a Estimated Date of Delivery: 12/11/23. Patient to have IOL on 12/04/23 @5am. Return to clinic for appointment. Documented by Shantell Ambrose LPN on behalf of: Robert Marrero DO documented in this encounter [facility] 05-07-2023 History of Presen t illness Narrative Letter sent to patient via mal and also to her My Chart regarding her missed OB intake appointment and also her MICHAEL for her Chlamydia. documented in this encounter [facility] 04-19-2023 Miscellaneous Notes Called patient to reschedule her IOB intake visit. No answer. Left message to call office to reschedule her appointment. documented in this encounter [facility] 04-19-2023 Telephone encounter Note Called patient to reschedule her IOB intake visit. No answer. Left message to call office to reschedule her appointment. [facility] 04-17-2023 Miscellaneous Notes Patient called for her OB intake per phone. No answer. Left message to call office. documented in this encounter [facility] 04-17-2023 Telephone encounter Note Patient called for her OB intake per phone. No answer. Left message to call office. [facility] Evaluation note No assessment inform ation available [facility] Work Phone: Evaluation note Diagnosis 6 weeks follow-up [facility] Diagnosis Third trimester state, incidental 38 weeks gestation of [facility]* Diagnosis Nausea and vomiting during - Primary [facility] Missed menses , unspecified gestational age Encounter for supervision of normal first in first trimester [facility] Diagnosis Constipation, unspecified constipation type- Primary First trimester state, incidental 13 weeks gestation of Nausea and vomiting in Unspecified vomiting of , unspecified as to episode of care [facility] Diagnosis Second trimester ([facility]) state, incidental 17 weeks gestation of ([facility]) Well woman exam with routine gynecological exam Routine gynecological examination Exposure to STD Need for maternal serum alpha-protein (MSAFP) screening ([facility]) Screening, , for anatomic survey ([facility]) Encounter for anatomic survey SOB (shortness of breath) Shortness of breath Dizziness Dizziness and giddiness documented in this encounter [facility] HealthcareInstructionsNot on filedocumented in this encounterProMediBlanch[facility] SystemInstructionsNot on filedocumented in this encounterProAshtabula [facility] System Chief Complaint and Reason for Visit Chief Complaint right knee pain Lt foot/ankle injury fell down stairs Advance Directives Advance Directive Response Recorded Date/ Time Advance [...] Dates NON STAFF Primary Care Provider Active Lead Tinner Relationship Specialty Start Date End Date Nano Cr PA [address] [place] [address] [place] [address] PCP - [facility] 01/07/24 Lead Tinner Relationship Specialty Start Date End Date Services, [facility] [address] [place] PCP - General Family Medicine 08/11/18 Lead Tinner Relationship Special[facility] [address] [place] - General Family Medicine 08/11/18 Lead Tinner Relationship Specialty [facility] Date [facility] [address] [place] PCP - General Family Medicine 08/11/18 Lead Tinner Relationship Specialty Start Date End Date Nano Cr PA [address] [place] [address] [place] [address] [facility] 01/07/24 Lead Tinner Relationship Specialty Start Date End Date Nano Cr PA [address] [facility] [place] [address] [facility] 01/07/24 Lead Tinner Relationship Specialty Start Date End Date Nano Cr PA [address] [place] [address] Dr [place], [facility] 01/07/24 Lead Tinner Relationship Specialty Start Date End Date Nano Cr PA [address] [place] [address] [place] [address] [facility] 01/07/24 Lead Tinner Relationship Specialty Start Date End Date Nano Cr PA [address] [place] [address] [place] [address] [facility] 01/07/24 Lead Tinner Relationship Specialty Start Date End Date Nano Cr PA [address] [facility] [place] [address] [facility] 01/07/24 Goals (unrecognized section and content) Goals may be documented in a n alternate sectionNot on filedocumented as of this encounterNot on filedocumented as of this encounterNot on filedocumented as of this encounterNot on filedocumented as of this encounter INFORMATION SOURCE (unrecogn ized section and content) DATE CREATED AUTHOR 07/27/2021 [facility] DATE CREATED AUTHOR AUTHOR'S ORGANIZ ATION 08/16/2022 [facility] DATE CREATED AUTHOR AUTHOR'S ORGANIZ ATION 08/04/2024 [facility] DATE CREATED AUTHOR AUTHOR'S ORGANIZ ATION 09/07/2024 [facility] DATE CREATED AUTHOR AUTHOR'S ORGANIZ ATION 09/26/2024 [facility] Reason for Visit (unrecogniz ed section and content) Reason Comments Follow-up Reason Comments Routine Visit Reason Comments Amenorrhea Reason Comments Routine Visit FOR RECORDS PERTAINING TO PATIENTS WHO ARE [...] BE BASED ON THE PRIMARY CLINICAL RECORDS. [facility] Attender [facility]. provides no warranty or guarantee of the accuracy or completeness of information in this document.
[2024-10-12 19:08] LABS: Age Gdln ACOG Testing Note (.); IGP, rfx Aptima HPV ASCU Note (.)
== END 2024-10-05 20:57 | disposition home or self-care (01) ==
LOC: LAB 20:56
PROVIDERS: Visit Provider Obstetrics & Gynecology
DX: Z01.419 Encounter for gynecological examination (general) (routine) without abnormal findings (principal)
CPT/HCPCS: 88175

== ENCOUNTER 2024-10-26 12:20 | Outpatient (OUT) | payer OTHER, SELFPAY ==
--- OUTSIDE RECORDS SUMMARY | 2024-10-15 12:31 | XMS_ITS | Encounter Summary ---
Author Organization [facility] tem Address [facility] [id number] [address] [place] [address] Care Team Providers Care Commission Sales Associate Name Role Phone Services, [facility] Primary Care Provider Reason for Visit * Reason Comments Dizziness Patient c/o near syn copal episode/dizziness that happened 30 mins ago. Patient 18 weeks and has had dizziness since beginning of , dizziness/ near syncopal episodes have become more frequent. Encounter Details Date Type Department Care Team (Late st Contact Info) Description 10/15/2024 12:31 PM EDT - 10/15/2024 3:[address] [facility] - Emergency [address] [place] [id number] Meek Sanchez MD [address] [place] [address] Orthostasis (Primary Dx); Near syncope; Hyperemesis Discharge [...] sent through Care Everywhere. * Orthostatic hypotension (Azerbaijani) * Near Fainting (Azerbaijani) documented in this encounter Medications at Time [...] from the original note were not included. [facility] - EMERGENCY Pt Name: Lia Blunt [...] or laying down. History provided by: Patient physical damage appraiser used: No Past Medical History: Past Medical History: Diagnosis Date Anxiety Bipolar disorder ([facility]) Depression Miscarriage 05/16/2022 Past Surgical History: Past [...] . ED Disposition ED Disposition Discharge Date/Time [facility] Oct 15, 2024 3:42 PM Comment [...] <2 <16 ng/L 10/15/2024 3:14 PM EDT [facility] Blood Venous blood / Unknown Venipuncture / Unknown 10/15/2024 2:39 PM EDT 10/15/2024 2:45 PM EDT Meek Sanchez MD LAB BLOOD ORDERABLES Final Result [address] [place] [address], [place] * SST TOP (10/15/2024 1:35 PM EDT) Extra Tube Auto Resulted 10/15/2024 3:02 PM EDT [facility] Blood Venous blood / Unknown 10/15/2024 1:35 PM EDT 10/15/2024 1:39 PM EDT us Meek Sanchez MD LAB BLOOD ORDERABLES Final Result [address] [place] [address], [place] * Light Blue Top (10/15/2024 1:35 PM EDT) Extra Tube Auto Resulted 10/15/2024 3:02 PM EDT [facility] Blood Venous blood / Unknown 10/15/2024 1:35 PM EDT 10/15/2024 1:39 PM EDT us Meek Sanchez MD LAB BLOOD ORDERABLES Final Result [address] [place] [address], [place] * Troponin I, High Sensitivity 0 Hour (10/15/2024 1:35 PM EDT) TROPONIN I, HIGH SENSITIVITY <2 <16 ng/L 10/15/2024 2:07 PM EDT [facility] Blood Venous blood / Unknown Venipuncture / Unknown 10/15/2024 1:35 PM EDT 10/15/2024 1:38 PM EDT us Meek Sanchez MD LAB BLOOD ORDERABLES Final Result [address] [place] [address], [place] * B-type natriuretic peptide (10/15/2024 1:35 PM EDT) BNP 5 <=100 pg/mL 10/15/2024 2:41 PM EDT [facility] Blood Venous blood / Unknown Venipuncture / Unknown 10/15/2024 1:35 PM EDT 10/15/2024 1:38 PM EDT us Meek Sanchez MD LAB BLOOD ORDERABLES Final Result Performing Organization Address City/[facility]/ZIP Co de Phone Number [address] [place] [address], [place] * Magnesium (10/15/2024 1:35 PM EDT) MAGNESIUM 2.0 1.8 - 2.6 mg/dL 10/15/2024 1:57 PM EDT [facility] Blood Venous blood / Unknown Venipuncture / Unknown 10/15/2024 1:35 PM EDT 10/15/2024 1:38 PM EDT us Meek Sanchez MD LAB BLOOD ORDERABLES Final Result Performing Organization Address City/[facility]/ZIP Co de Phone Number [address] [place] [address], [place] * (ABNORMAL) Comprehensive metabolic panel (10/15/2024 1:35 PM EDT) SODIUM 137 134 - 146 mmol/L 10/15/2024 1:57 PM EDT [facility] POTASSIUM 4.1 3.5 - 5.0 mmol/L 10/15/2024 1:57 PM EDT [facility] CHLORIDE 105 98 - 109 mmol/L 10/15/2024 1:57 PM EDT [facility] CARBON DIOXIDE 21(L) 22 - 32 mmol/L 10/15/2024 1:57 PM EDT [facility] ANION GAP 11 5 - 15 mmol/L 10/15/2024 1:57 PM EDT [facility] BLOOD UREA NITROGEN 6 5 - 23 mg/dL 10/15/2024 1:57 PM EDT [facility] CREATININE 0.71 0.40 - 1.00 mg/dL 10/15/2024 1:57 PM EDT [facility] Comment:METHOD TRACEABLE TO IDMS STANDARD GLUCOSE 80 65 - 99 mg/dL 10/15/2024 1:57 PM EDT [facility] CALCIUM 9.0 8.5 - 10.5 mg/dL 10/15/2024 1:57 PM EDT [facility] TOTAL PROTEIN 7.1 6.0 - 8.0 g/dL 10/15/2024 1:57 PM EDT [facility] ALBUMIN 3.4 3.2 - 5.3 g/dL 10/15/2024 1:57 PM EDT [facility] ALKALINE PHOSPHATASE 76 39 - 130 U/L 10/15/2024 1:57 PM EDT [facility] AST 17 <=41 U/L 10/15/2024 1:57 PM EDT [facility] ALT 11 <=31 U/L 10/15/2024 1:57 PM EDT [facility] BILIRUBIN,TOTAL 0.7 0.3 - 1.2 mg/dL 10/15/2024 1:57 PM EDT [facility] EGFR Non-Race Dependent >90 >=60 ml/min/1.7 3sq.m 10/15/2024 1:57 PM EDT [facility] Comment: eGFR not reported due to non-numeric value for Creatinine. Reported eGFR is based on the CKD-EPI 2020 equation that does not use a race coefficient. Blood Venous blood / Unknown Venipuncture / Unknown 10/15/2024 1:35 PM EDT 10/15/2024 1:38 PM EDT us eMek Sanchez MD LAB BLOOD ORDERABLES Final Result [facility] [address] [place] [address], * (ABNORMAL) CBC auto differential (10/15/2024 1:35 PM EDT) WBC 13.0(H) 4 - 11 x10E9/L 10/15/2024 1:44 PM EDT [facility] RBC Count 4.82 3.8 - 5.2 X10E12/L 10/15/2024 1:44 PM EDT [facility] Hemoglobin 13.0 11.7 - 15.5 g/dL 10/15/2024 1:44 PM EDT [facility] Hematocrit 38.7 35 - 47 % 10/15/2024 1:44 PM EDT [facility] MCV 80 80 - 100 fL 10/15/2024 1:44 PM EDT [facility] MCH 27.1 27 - 34 pg 10/15/2024 1:44 PM EDT [facility] MCHC 33.7 32 - 36 g/dL 10/15/2024 1:44 PM EDT [facility] RDW 14.1 11.5 - 15 % 10/15/2024 1:44 PM EDT [facility] Platelet Count 362 150 - 450 X10E9/L 10/15/2024 1:44 PM EDT [facility] MPV 9.2 7 - 12 fL 10/15/2024 1:44 PM EDT [facility] Neutrophils % 73.2 % 10/15/2024 1:44 PM EDT [facility] Lymphocytes % 18.3 % 10/15/2024 1:44 PM EDT [facility] Monocytes % 8.0 % 10/15/2024 1:44 PM EDT [facility] Eosinophils % 0.3 % 10/15/2024 1:44 PM EDT [facility] Basophils % 0.2 % 10/15/2024 1:44 PM EDT [facility] Neutrophils Absolute (A) 9.5(H) 1.5 - 6.6 10*3/uL 10/15/2024 1:44 PM EDT [facility] Lymphocytes Absolute 2.4 1.0 - 3.5 10*3/uL 10/15/2024 1:44 PM EDT [facility] Monocytes Absolute 1.0(H) 0.0 - 0.9 10*3/uL 10/15/2024 1:44 PM EDT [facility] Eosinophils Absolute 0.0 0.0 - 0.4 10*3/uL 10/15/2024 1:44 PM EDT [facility] Basophils Absolute 0.0 0.0 - 0.2 10*3/uL 10/15/2024 1:44 PM EDT [facility] Differential Type AUTOMATED DIFFERENTIAL 10/15/2024 1:44 PM EDT [facility] Blood Venous blood / Unknown Venipuncture / Unknown 10/15/2024 1:35 PM EDT 10/15/2024 1:38 PM EDT us Meek Sanchez MD LAB BLOOD ORDERABLES Final Result [facility] [address] [place] [address], [place] * X-ray chest 1 view (10/15/2024 [...] Meek Sanchez MD [facility] Final Result * ECG 12 [...] dose 1327 (New Bag - Prov ider: Aolnzo Mix, DANIELLE)1458 (Stop Bag - Provider: Jenna Dumont RN) documented in this encounter Care Teams Commission Sales Associate Relationship Specialty Start Date End Date [facility], [facility] [address] [place] [address] PCP - General Family Medicine 10/15/24 documented as of this encounter
--- OUTSIDE RECORDS SUMMARY | 2024-10-26 12:24 | XMS_ITS | Encounter Summary ---
Author Organization [facility] tem Address [id number] [address] [place] [address] Care Team Providers Care Chiller Hand Name Role Phone [facility] Primary Care Provider Encounter Details Date Type Department Care Team (Late st Contact Info) Description 08/30/2022 Orders Only [facility] Certified Nurse Advanced Practice Psychiatric Nurse - [place] [address] [facility] [address] [place] [address] Leah Hernandez RN Miscarriage Social [...] documented as of this encounter Care Teams Chiller Hand Relationship Specialty Start Date End Date [facility] [address] [place], [place] PCP - General Family Medicine 10/15/24 documented as of this encounter
--- OUTSIDE RECORDS SUMMARY | 2024-10-26 12:24 | XMS_ITS | Encounter Summary ---
Author Organization [facility] tem Address [id number] [address] [place] [address] Care Team Providers Care Key Holder Name Role Phone [facility] Primary Care Provider Encounter Details Date Type Department Care Team (Latest Contact Info) Description 10/15/2024 Travel Social History Tobacco Use Types Packs/Day Years [...] on filedocumented in this encounter Care Teams Key Holder Relationship Specialty Start Date End Date [facility] [address] [place], [place] PCP - General Family Medicine 10/15/24 documented as of this encounter
--- OUTSIDE RECORDS SUMMARY | 2024-10-26 12:24 | XMS_ITS | Encounter Summary ---
Author Organization [employer] [facility] tem Address [facility] [id number] [address] [place] [address] Care Team Providers Care Capacity Planner Name Role Phone Services, [facility] Primary Care Provider Encounter Details Date Type Department Care Team (Late st Contact Info) Description 09/27/2022 Orders Only [place] [facility] [address] [facility] [address] [place] [id number] Charu Forbes APRN-RORY [address] [place] [id number] Chlamydia (Primary Dx) Social History Tobacco Use [...] documented as of this encounter Care Teams Capacity Planner Relationship Specialty Start Date End Date Services, [facility] [address] [place], [place] PCP - General Family Medicine 10/15/24 documented as of this encounter
--- OUTSIDE RECORDS SUMMARY | 2024-10-26 12:24 | XMS_ITS | Encounter Summary ---
Author Organization [facility] [facility] tem Address [id number] [address] [place] [address] Care Team Providers Care Sweater Designer Name Role Phone [facility] Primary Care Provider Encounter Details Date Type Department Care Team (Late st Contact Info) Description 10/02/2022 Documentation [facility] Certified Nurse Beef Lugger - [place] [address] [facility] [address] [place] [address] Leah Hernandez RN Social History [...] documented as of this encounter Care Teams Sweater Designer Relationship Specialty Start Date End Date [place] [address] [place], [place] PCP - General Family Medicine 10/15/24 documented as of this encounter
--- OUTSIDE RECORDS SUMMARY | 2024-10-26 12:24 | XMS_ITS | Clinical Summary ---
Author Organization [facility] Evocal[facility] tem Address [id number] [address] [place] [address] Care Team Providers Care Sand Drier Name Role Phone Services, [facility] Primary Care Provider Allergies Active Allergy Reactions [...] Encounters Date Type Department Care Team Description 10/15/2024 12:31 PM EDT - 10/15/2024 3:51 PM EDT Emergency [facility] Emergency [address] [place] [address] Meek Sanchez MD Orthostasis (Primary Dx); Near syncope; Hyperemesis Discharge Disposition: Home 10/15/2024 Travel 08/03/2024 11:52 AM EDT - 08/03/2024 2:18 PM EDT Emergency [facility] - Emergency [address] [place] [address] Levi Singh MD Nausea and vomiting during (Primary Dx) Discharge Disposition: Home 08/03/2024 Travel from Last 3 Months Family History [...] (250 lb) 10/15/2024 12:39 PM EDT Height 170.2 cm (5' 7 ) 08/03/2024 11:49 AM EDT Body Mass Index 39.16 08/03/2024 11:49 AM EDT Plan of Treatment Health Maintenance Due Date Last Done Comments Depression Screening 2013 Adult BMI Follow Up Plan 10/08/2019 Influenza Vaccine 12/07/2024 Chlamydia Screening 05/01/2025 05/01/2024, Adult BMI Screening 10/15/2025 10/15/2024 Tobacco Screening 10/15/2025 10/15/2024 Pap Smear 10/06/2027 10/05/2024 DTaP,Tdap and Td Vaccines (2 - Td or Tdap) 05/15/2028 05/15/2018 Medical Devices Not on file Procedures Procedure Name Priority Date/Time Associated Diagnosis Comments TROP I, HIGH SENSITIVITY 1 HOUR STAT 10/15/2024 2:39 PM EDT EXTRA TUBES SST TOP Routine 10/15/2024 1 :35 PM EDT EXTRA TUBES BLUE TOP Routine 10/15/2024 1:35 PM EDT EXTRA TUBES Routine 10/15/2024 1:35 PM EDT TROPONIN I, HIGH SENSITIVITY 0 HOUR STAT 10/15/2024 1:35 PM EDT B-TYPE NATRIURETIC PEPTIDE STAT 10/15/2024 1:35 PM EDT TROPONIN I, HIGH SENSITIVITY 0 HOUR STAT 10/15/2024 1:35 PM EDT MAGNESIUM STAT 10/15/2024 1:35 PM EDT COMPREHENSIVE METABOLIC PANEL STAT 10/15/2024 1:35 PM EDT CBC WITH AUTO DIFFERENTIAL STAT 10/15/2024 1:35 PM EDT XR CHEST 1 VW STAT 10/15/2024 1:34 PM EDT ECG 12-LEAD STAT 10/15/2024 12:35 PM EDT POCT , URINE (NUCG) Routine 08/03/2024 1:01 PM EDT POCT NURSING URINE MACROSCOPIC UA Routine 08/03/2024 12:59 PM EDT US PREG LESS THAN 14 WKS SINGLE STAT 08/03/2024 12:41 PM EDT MAGNESIUM STAT 08/03/2024 12:26 PM EDT COMPREHENSIVE METABOLIC PANEL STAT 08/03/2024 12:26 PM EDT CBC WITH AUTO DIFFERENTIAL STAT 08/03/2024 12:26 PM EDT CHLAMYDIA/GC BY PCR BISI SWAB STAT 05/01/2024 11:20 AM EST from Last 3 Months or Most Recently Relevant to Health Maintenance Results * Troponin I, High Sensitivity 1 Hour (10/15/2024 2:39 PM EDT) TROPONIN I, HIGH SENSITIVITY <2 <16 ng/L 10/15/2024 3:14 PM EDT [facility] Blood Venous blood / Unknown Venipuncture / Unknown 10/15/2024 2:39 PM EDT 10/15/2024 2:45 PM EDT us Meek Sanchez MD LAB BLOOD ORDERABLES Final Result Performing Organization Address City/[facility]/ZIP Co de Phone Number [address] [place] [address], [place] * Troponin I, High Sensitivity 0 Hour (10/15/2024 1:35 PM EDT) TROPONIN I, HIGH SENSITIVITY <2 <16 ng/L 10/15/2024 2:07 PM EDT [facility] Blood Venous blood / Unknown Venipuncture / Unknown 10/15/2024 1:35 PM EDT 10/15/2024 1:38 PM EDT us Meek Sanchez MD LAB BLOOD ORDERABLES Final Result Performing Organization Address [facility] Co de Phone Number [address] [place] [address], [place] * SST TOP (10/15/2024 1:35 PM EDT) Extra Tube Auto Resulted 10/15/2024 3:02 PM EDT [facility] Blood Venous blood / Unknown 10/15/2024 1:35 PM EDT 10/15/2024 1:39 PM EDT us Meek Sanchez MD LAB BLOOD ORDERABLES Final Result Performing Organization Address City/[facility]/ZIP Co de Phone Number [address] [place] [address], [place] * Light Blue Top (10/15/2024 1:35 PM EDT) Extra Tube Auto Resulted 10/15/2024 3:02 PM EDT [facility] Blood Venous blood / Unknown 10/15/2024 1:35 PM EDT 10/15/2024 1:39 PM EDT us Meek Sanchez MD LAB BLOOD ORDERABLES Final Result [facility] [address] [place] [address], [place] * (ABNORMAL) CBC auto differential (10/15/2024 1:35 PM EDT) Only the most recent of2 resultswithin the time period is included. WBC 13.0(H) 4 - 11 x10E9/L 10/15/2024 1:44 PM EDT [facility] RBC Count 4.82 3.8 - 5.2 X10E12/L 10/15/2024 1:44 PM EDT [facility] Hemoglobin 13.0 11.7 - 15.5 g/dL 10/15/2024 1:44 PM EDT [facility] Hematocrit 38.7 35 - 47 % 10/15/2024 1:44 PM EDT [facility] MCV 80 80 - 100 fL 10/15/2024 1:44 PM EDT [facility] MCH 27.1 27 - 34 pg 10/15/2024 1:44 PM EDT [facility] MCHC 33.7 32 - 36 g/dL 10/15/2024 1:44 PM EDT [facility] RDW 14.1 11.5 - 15 % 10/15/2024 1:44 PM EDT [facility] Platelet Count 362 150 - 450 X10E9/L 10/15/2024 1:44 PM EDT [facility] MPV 9.2 7 - 12 fL 10/15/2024 1:44 PM EDT [facility] Neutrophils % 73.2 % 10/15/2024 1:44 PM EDT [facility] Lymphocytes % 18.3 % 10/15/2024 1:44 PM EDT [facility] Monocytes % 8.0 % 10/15/2024 1:44 PM EDT [facility] Eosinophils % 0.3 % 10/15/2024 1:44 PM EDT [facility] Basophils % 0.2 % 10/15/2024 1:44 PM EDT [facility] Neutrophils Absolute (A) 9.5(H) 1.5 - 6.6 10*3/uL 10/15/2024 1:44 PM EDT [facility] Lymphocytes Absolute 2.4 1.0 - 3.5 10*3/uL 10/15/2024 1:44 PM EDT [facility] Monocytes Absolute 1.0(H) 0.0 - 0.9 10*3/uL 10/15/2024 1:44 PM EDT [facility] Eosinophils Absolute 0.0 0.0 - 0.4 10*3/uL 10/15/2024 1:44 PM EDT [facility] Basophils Absolute 0.0 0.0 - 0.2 10*3/uL 10/15/2024 1:44 PM EDT [facility] Differential Type AUTOMATED DIFFERENTIAL 10/15/2024 1:44 PM EDT [facility] Blood Venous blood / Unknown Venipuncture / Unknown 10/15/2024 1:35 PM EDT 10/15/2024 1:38 PM EDT us Meek Sanchez MD LAB BLOOD ORDERABLES Final Result Performing Organization Address City/[facility]/ZIP Co de Phone Number [facility] [address] [place] [address], * B-type natriuretic peptide (10/15/2024 1:35 PM EDT) BNP 5 <=100 pg/mL 10/15/2024 2:41 PM EDT [facility] Blood Venous blood / Unknown Venipuncture / Unknown 10/15/2024 1:35 PM EDT 10/15/2024 1:38 PM EDT us Meek Sanchez MD LAB BLOOD ORDERABLES Final Result [facility] [address] [place] [address] [place] [address], [place] * Magnesium (10/15/2024 1:35 PM EDT) Only the most recent of2 resultswithin the time period is included. MAGNESIUM 2.0 1.8 - 2.6 mg/dL 10/15/2024 1:57 PM EDT [facility] Blood Venous blood / Unknown Venipuncture / Unknown 10/15/2024 1:35 PM EDT 10/15/2024 1:38 PM EDT us Meek Sanchez MD LAB BLOOD ORDERABLES Final Result [address] [place] [address], [place] * (ABNORMAL) Comprehensive metabolic panel (10/15/2024 1:35 PM EDT) Only the most recent of2 resultswithin the time period is included. SODIUM 137 134 - 146 mmol/L 10/15/2024 1:57 PM EDT [facility] POTASSIUM 4.1 3.5 - 5.0 mmol/L 10/15/2024 1:57 PM EDT [facility] CHLORIDE 105 98 - 109 mmol/L 10/15/2024 1:57 PM EDT [facility] CARBON DIOXIDE 21(L) 22 - 32 mmol/L 10/15/2024 1:57 PM EDT [facility] ANION GAP 11 5 - 15 mmol/L 10/15/2024 1:57 PM EDT [facility] BLOOD UREA NITROGEN 6 5 - 23 mg/dL 10/15/2024 1:57 PM EDT [facility] CREATININE 0.71 0.40 - 1.00 mg/dL 10/15/2024 1:57 PM EDT [facility] Comment:METHOD TRACEABLE TO IDMS STANDARD GLUCOSE 80 65 - 99 mg/dL 10/15/2024 1:57 PM EDT [facility] CALCIUM 9.0 8.5 - 10.5 mg/dL 10/15/2024 1:57 PM EDT [facility] TOTAL PROTEIN 7.1 6.0 - 8.0 g/dL 10/15/2024 1:57 PM EDT [facility] ALBUMIN 3.4 3.2 - 5.3 g/dL 10/15/2024 1:57 PM EDT [facility] ALKALINE PHOSPHATASE 76 39 - 130 U/L 10/15/2024 1:57 PM EDT [facility] AST 17 <=41 U/L 10/15/2024 1:57 PM EDT [facility] ALT 11 <=31 U/L 10/15/2024 1:57 PM EDT [facility] BILIRUBIN,TOTAL 0.7 0.3 - 1.2 mg/dL 10/15/2024 1:57 PM EDT [facility] EGFR Non-Race Dependent >90 >=60 ml/min/1.7 3sq.m 10/15/2024 1:57 PM EDT [facility] Comment: eGFR not reported due to non-numeric value for Creatinine. Reported eGFR is based on the CKD-EPI 2020 equation that does not use a race coefficient. Blood Venous blood / Unknown Venipuncture / Unknown 10/15/2024 1:35 PM EDT 10/15/2024 1:38 PM EDT us Meek Sanchez MD LAB BLOOD ORDERABLES Final Result [facility] [address] [place] [address], * X-ray chest 1 view (10/15/2024 1:34 [...] Levi Baker MD on 10/15/2024 1:51 PM Meek Sanchez MD IMG DIAGNOSTIC IMAGING [facility] Final Result * ECG 12 lead (10/15/2024 12:35 PM EDT) 10/15/2024 12:3 5 PM EDT Meek Sanchez MD ECG ORDERABLES Final Resul t TRACEMASTERVUE * (ABNORMAL) POCT , urine (08/03/2024 1:01 PM EDT) POC Urine Positive(A ) Negative 08/03/2024 12:59 PM EDT [facility] Urine 08/03/2024 1:01 PM EDT 08/03/2024 12:59 PM EDT us Levi Singh MD POINT OF CARE TEST ORDERABLES F inal Result [facility] [address] [place] [address], [place] * (ABNORMAL) POCT Nursing Urine Macroscopic UA (08/03/2024 12:59 PM EDT) POC Urine Specific [place] 1.025(A) (none) 08/03/2024 12:56 PM EDT [facility] POC Urine Leukocyte Esterase Negative Negative 08/03/2024 12:56 PM EDT [facility] POC Urine Nitrite Negative Negative 08/03/2024 12:56 PM EDT [facility] POC Urine pH 7.0 5.0, 6.0, 6.5, 7.0, 7.5, 8.0, 8.5, 5.5 08/03/2024 12:56 PM EDT [facility] POC Urine Protein 100 mg/dL(A) Negative 08/03/2024 12:56 PM EDT [facility] POC Urine Glucose Negative Negative 08/03/2024 12:56 PM EDT [facility] POC Urine Ketones 15 mg/dL(A) Negative 08/03/2024 12:56 PM EDT [facility] POC Urine Urobilinogen 1.0 E.U./dL 0.2 E.U./dL, 1.0 E.U./dL 08/03/2024 12:56 PM EDT [facility] POC Urine Bilirubin Small(A) Negative 08/03/2024 12:56 PM EDT [facility] POC Urine Blood/HGB Small(A) Negative 08/03/2024 12:56 PM EDT [facility] Urine 08/03/2024 12:5 9 PM EDT 08/03/2024 12:56 PM EDT us Levi Singh MD POINT OF CARE TEST ORDERABLES F inal Result [facility] [address] [place] [address], [place] * Ultrasound less than 14 weeks single (08/03/2024 12:41 PM EDT) Anatomical Region Laterality Modality OB-DAM WORKER Ultrasound 08/03/2024 12:4 9 PM EDT Narrative 08/03/2024 12:52 PM EDT US PREG LESS THAN 14 WKS SINGLE CLINICAL INDICATION: vomiting FINDINGS: limited transabdominal ultrasound of the pelvis. UTERUS AND GESTATIONAL SAC: Intrauterine gestation: Single. Gestational sac: Intrauterine. Yolk sac: 0.3 cm [employer]-rump length (CRL): 1.6 cm heart motion: 174 [...] Gestational sac: Intrauterine. Yolk sac: 0.3 cm [employer]-rump length (CRL): 1.6 cm heart motion: 174 [...] on 08/03/2024 12:52 PM us Sarai Jose SHEET FOLDER-HOUSE PAINTER IMG US ORDERABLES Final Re sult * Chlamydia/GC by PCR Bisi Swab (05/01/2024 11:20 AM EST) Specimen source CERVIX 5:35 PM EST [facility] Comment:Corrected on 05/01 A T 1735: Previously reported as SWAB Chlamydia DNA PCR Negative Negative^N egative 05/04/2024 11:02 AM EST [facility] Comment: Chlamydia trachomatis not detected by nucleic acid amplification. This does not exclude the possibility of infection because results are dependent on adequate specimen collection. Gonorrhea DNA PCR Negative Negative^N egative 05/04/2024 11:02 AM EST [facility] Comment: Neisseria gonorrhoeae not detected by nucleic acid amplification. This does not exclude the possibility of infection because results are dependent on adequate specimen collection. GENS 05/01/2024 11:2 0 AM EST 05/01/2024 5:34 PM EST Tom Coto DO MICROBIOLOGY - GENERAL ORDERABLES Edited Result - Final VENTURA [facility] [address] [place] [address] from Last 3 Months or Most Recently Relevant to Health Maintenance Insurance [place] [employer] [employer] Advance Directives * Full Code (Latest Code Status on File) Date Activated Date Inactivated Comments 07/30/2023 4:35 PM 07/30/2023 7:06 PM Care Teams Sand Drier Relationship Specialty Start Date End Date Services, [facility] [address] [place], [place] PCP - General Family Medicine 10/15/24
--- OUTSIDE RECORDS SUMMARY | 2024-10-26 12:24 | XMS_ITS | Encounter Summary ---
Author Organization [facility] [facility] tem Address [id number] [address] [place] [address] Care Team Providers Care Joint Yarner Name Role Phone Services, [facility] Primary Care Provider Encounter Details Date Type Department Care Team (Late st Contact Info) Description 04/05/2023 Telephone [facility] Certified Nurse Radiation Control Worker - [place] [address] [address] [address] [place] [address] Dorota Dewitt Social History Tobacco [...] documented as of this encounter Care Teams Joint Yarner Relationship Specialty Start Date End Date [facility], [facility] [address] [place], [place] PCP - General Family Medicine 10/15/24 documented as of this encounter
== END 2024-10-26 12:21 | disposition home or self-care (01) ==
LOC: LAB 12:22
PROVIDERS: Visit Provider Obstetrics & Gynecology
DX: Z34.92 Encounter for supervision of normal pregnancy, unspecified, second trimester (principal)
CPT/HCPCS: 36415; 82105

== ENCOUNTER 2024-10-27 13:21 | Outpatient (OUT) | payer OTHER, SELFPAY ==
--- OUTSIDE RECORDS SUMMARY | 2024-10-15 12:31 | XMS_ITS | Encounter Summary ---
Author Organization [facility] tem Address [facility] [id number] [address] [place] [address] Care Team Providers Care Civil Drafter Name Role Phone Services, [facility] Primary Care Provider Reason for Visit * Reason Comments Dizziness Patient c/o near syn copal episode/dizziness that happened 30 mins ago. Patient 18 weeks and has had dizziness since beginning of , dizziness/ near syncopal episodes have become more frequent. Encounter Details Date Type Department Care Team (Late st Contact Info) Description 10/15/2024 12:31 PM EDT - 10/15/2024 3:[address] [facility] - Emergency [address] [place] [id number] Meek Sanchez MD [address] [place] [address] Orthostasis (Primary Dx); Near syncope; Hyperemesis Discharge Disposition: Home Social History Tobacco Use Types Packs/Day Years [...] PM EDT documented as of this encounter Last Filed Vital Signs Vital Sign Reading Time Taken Comments Blood Pressure 129/76 10/15/2024 3:15 PM EDT Pulse 81 10/15/2024 3:15 PM EDT Temperature 36.9 C (98.5 F) 10/15/2024 12:39 PM EDT Respiratory Rate 16 10/15/2024 3:15 PM EDT Oxygen Saturation 100% 10/15/2024 3:15 PM EDT Inhaled Oxygen Concentration - - Weight 113.4 kg (250 lb) 10/15/2024 12:39 PM EDT Height - - Body Mass Index 39.16 08/03/2024 11:49 AM EDT documented in this encounter Discharge Instructions * Discharge Instructions* Meek Sanchez MD - 10/15/2024 3:31 PM EDT Please follow-up with your OBGYN. If you begin to have chest pain or shortness of breath, palpitations or high-spiking fevers then you may need more urgent evaluation and should be seen immediately. Otherwise police follow up with your outpatient workup including previously scheduled echo. Please also continue to take in plenty of fluids and electrolytes by mouth. * Attachments The following attachments cannot be sent through Care Everywhere. * Orthostatic hypotension (Sol[place] Islander) * Near Fainting ([place] Islander) documented in this encounter Medications at Time of Discharge folic acid (FOLVITE) 1 mg tabletIndication s:Folic acid deficiency Take 1 tablet (1 mg total) by mouth in the morning. 30 tablet 12 03/06/2023 metoclopramide (REGLAN) 10 mg tablet Take 1 tablet (10 mg total) by mouth every 6 (six) hours. 15 tablet 07/20/2024 ondansetron (ZOFRAN) 4 mg tablet Take 1 tablet (4 mg total) by mouth every 8 (eight) hours as needed for nausea or vomiting. 25/iron fum/folic/dha (-1 ORAL) Take by mouth. prochlorperazine (COMPAZINE) 25 mg suppository Insert 1 suppository (25 mg total) into the rectum every 12 (twelve) hours as needed for nausea or vomiting. 12 suppository 08/03/2024 progesterone (ENDOMETRIN) 100 mg vaginal insert Insert 1 tablet (100 mg total) into the vagina in the evening. documented as of this encounter ED Notes * Meek Sanchez MD - 10/15/2024 12:51 PM EDT Images from the original note were not included. [facility] - EMERGENCY Pt Name: Lia Blunt Birthdate: 2000 Chief Complaint: Chief Complaint Patient presents with Dizziness Patient c/o near syncopal episode/dizziness that happened 30 mins ago. Patient 18 weeks and has had dizziness since beginning of , dizziness/ near syncopal episodes have become morefrequent. History of Present Illness: Initial evaluation preformed by Dr. Sanchez at 12:58 PM 24 y.o. female presents to ED with c/o Dizziness (Patient c/o near syncopal episode/dizziness that happened 30 mins ago. Patient 18 weeks and has had dizziness since beginning of , dizziness/ near syncopal episodes have become more frequent. ). Pt reports having symptoms for 1-2 months which are: syncopal episodes, vision changes, heart pounding, vomiting, nausea, migraines and congestion (from a Zofran pump), hyperemesis, and chest pain (Pt stated that it isn't correlated to syncope). Pt denies vaginal bleeding. Pt is 19 weeks and has a history of 4 miscarriages. Pt states that she has vomited 4 times since 9:00 this morning. Pt reports that syncopal episodes occur standing, sitting, or laying down. History provided by: Patient educational technology specialist used: No Past Medical History: Past Medical History: Diagnosis Date Anxiety Bipolar disorder ([facility]) Depression Miscarriage 05/16/2022 Past Surgical History: Past Surgical History: Procedure Laterality Date ADENOIDECTOMY DILATION AND CURETTAGE OF UTERUS 05/17/2022 TONSILLECTOMY Family History: Family History Problem Relation Age of Onset Depression Mother Cancer Mother Ovarian cancer Mother uterine Depression Father Cancer Father Breast cancer Maternal Aunt Ovarian cancer Maternal Aunt Hypertension Maternal Grandmother Colon cancer Neg Hx Social History: Social History Socioeconomic History Marital status: Single Tobacco Use Smoking status: Never Passive exposure: Yes Smokeless tobacco: Never Vaping Use Vaping status: Never Used Substance and Sexual Activity Alcohol use: Not Currently Comment: social Drug use: Not Currently Types: Marijuana Comment: 1-2 times a week Sexual activity: Yes Partners: Male control/protection: None Comment: Current partner x 1 year Social Drivers of Health Food Insecurity: No Food Insecurity (08/03/2024) Hunger Screening Food Insecurity - Worry: Never True Food Insecurity - Inability: Never True Housing Instability: Low Risk (09/04/2023) Housing Instability Housing Instability: No Review of Systems: Review of Systems Physical Exam: ED Triage Vitals Temp Heart Rate Resp BP SpO2 10/15/24 1239 10/15/24 1239 10/15/24 1239 10/15/24 1241 10/15/24 1239 36.9 ??C (98.5 ??F) 102 22 129/80 97 % Temp Source Heart Rate Source Patient Position BP Location FiO2 (%) 10/15/24 1239 10/15/24 1239 10/15/24 1239 -- -- Oral Monitor Lying supine Vitals: 10/15/24 1241 10/15/24 1330 10/15/24 1415 10/15/24 1515 BP: 129/80 (!) 138/106 131/76 129/76 Temp: TempSrc: Pulse: 82 79 81 Resp: 13 15 16 SpO2: 100% 100% 100% MAP (mmHg): 116 Weight: 100 Physical Exam Vitals reviewed. HENT: Head: Normocephalic and atraumatic. Nose: Comments: Dry mucus membranes Eyes: Conjunctiva/sclera: Conjunctivae normal. Cardiovascular: Rate and Rhythm: Normal rate. Heart sounds: No murmur heard. Pulmonary: Effort: Pulmonary effort is normal. Breath sounds: Normal breath sounds and air entry. No decreased breath sounds. Abdominal: General: There is no distension. Palpations: Abdomen is soft. Genitourinary: Uterus: Deviated. Musculoskeletal: General: Normal range of motion. Cervical back: Normal range of motion and neck supple. Skin: General: Skin is warm and dry. Neurological: General: No focal deficit present. Mental Status: She is alert and oriented to person, place, and time. GCS: GCS eye subscore is 4. GCS verbal subscore is 5. GCS motor subscore is 6. Procedure: Procedures Re-evaluation: Re-Evaluation Medical Decision Making Amount and/or Complexity of Data Reviewed Labs: ordered. Decision-making details documented in ED Course. Radiology: ordered. Details: Imaging was independently viewed and is notable for no acute findings. ECG/medicine tests: ordered. ED Course: ED Course as of 10/16/24 0700 Alicia Oct 15, 2024 1259 12 lead EKG shows sinus rhythm [DEBBI] 1330 Orthostatics are positive with significant increase in the heart rate on standing. IV fluids have been ordered. Consistent with patient's history of hyperemesis gravidarum. Also checking electrolytes. No arrhythmia or high-degree heart block on 12 lead EKG. QTC is within acceptable limits [DEBBI] 1529 Troponin I, High Sensitivity: <2 [DEBBI] ED Course User Index [DEBBI] Meek Sanchez MD Clinical Impressions as of 10/16/24 0700 Orthostasis Near syncope Hyperemesis . ED Disposition ED Disposition Discharge Date/Time [facility] Oct 15, 2024 3:42 PM Comment At the time of discharge, the plan has been discussed with the patient regarding the diagnosis and prognosis. All questions have been answered. Verbal discharge instructions were discussed with the patient. The patient has been advised to follow up w ith their Specialist within 1-2 days. The patient was also instructed to return to the ED if their symptoms change, worsen, new symptoms arise or ifthey have any additional concerns. . Please note that portions of this note were completed with a voice recognition program. Efforts were made to edit the dictations but occasionally words are mis-transcribed. Deonte Tinndasha 10/15/24 1304 Deonte Bell 10/15/24 1355 Deonte Bell 10/15/24 1357 Meek Sanchez MD 10/16/24 0653 Meek Sanchez MD 10/16/24 0700 documented in this encounter Plan of Treatment Not on file documented as of this encounter Procedures Procedure Name Priority Date/Time Associated Diagnosis Comments TROP I, HIGH SENSITIVITY 1 HOUR STAT 10/15/2024 2:39 PM EDT TROPONIN I, HIGH SENSITIVITY 0 HOUR STAT 10/15/2024 1:35 PM EDT EXTRA TUBES SST TOP Routine 10/15/2024 1 :35 PM EDT EXTRA TUBES BLUE TOP Routine 10/15/2024 1:35 PM EDT TROPONIN I, HIGH SENSITIVITY 0 HOUR STAT 10/15/2024 1:35 PM EDT EXTRA TUBES Routine 10/15/2024 1:35 PM EDT CBC WITH AUTO DIFFERENTIAL STAT 10/15/2024 1:35 PM EDT B-TYPE NATRIURETIC PEPTIDE STAT 10/15/2024 1:35 PM EDT MAGNESIUM STAT 10/15/2024 1:35 PM EDT COMPREHENSIVE METABOLIC PANEL STAT 10/15/2024 1:35 PM EDT XR CHEST 1 VW STAT 10/15/2024 1:34 PM EDT ECG 12-LEAD STAT 10/15/2024 12:35 PM EDT documented in this encounter Results * Troponin I, High Sensitivity 1 Hour (10/15/2024 2:39 PM EDT) TROPONIN I, HIGH SENSITIVITY <2 <16 ng/L 10/15/2024 3:14 PM EDT [facility] Blood Venous blood / Unknown Venipuncture / Unknown 10/15/2024 2:39 PM EDT 10/15/2024 2:45 PM EDT Meek Sanchez MD LAB BLOOD ORDERABLES Final Result [address] [place] [address], [place] * SST TOP (10/15/2024 1:35 PM EDT) Extra Tube Auto Resulted 10/15/2024 3:02 PM EDT [facility] Blood Venous blood / Unknown 10/15/2024 1:35 PM EDT 10/15/2024 1:39 PM EDT us eMek Sanchez MD LAB BLOOD ORDERABLES Final Result [address] [place] [address], [place] * Light Blue Top (10/15/2024 1:35 PM EDT) Extra Tube Auto Resulted 10/15/2024 3:02 PM EDT [facility] Blood Venous blood / Unknown 10/15/2024 1:35 PM EDT 10/15/2024 1:39 PM EDT us Meek Sanchez MD LAB BLOOD ORDERABLES Final Result [address] [place] [address], [place] * Troponin I, High Sensitivity 0 Hour (10/15/2024 1:35 PM EDT) TROPONIN I, HIGH SENSITIVITY <2 <16 ng/L 10/15/2024 2:07 PM EDT [facility] Blood Venous blood / Unknown Venipuncture / Unknown 10/15/2024 1:35 PM EDT 10/15/2024 1:38 PM EDT us Meek Sanchez MD LAB BLOOD ORDERABLES Final Result [address] [place] [address], [place] * B-type natriuretic peptide (10/15/2024 1:35 PM EDT) BNP 5 <=100 pg/mL 10/15/2024 2:41 PM EDT [facility] Blood Venous blood / Unknown Venipuncture / Unknown 10/15/2024 1:35 PM EDT 10/15/2024 1:38 PM EDT us Meek Sanchez MD LAB BLOOD ORDERABLES Final Result Performing Organization Address City/[facility]/ZIP Co de Phone Number [address] [place] [address], [place] * Magnesium (10/15/2024 1:35 PM EDT) MAGNESIUM 2.0 1.8 - 2.6 mg/dL 10/15/2024 1:57 PM EDT [facility] Blood Venous blood / Unknown Venipuncture / Unknown 10/15/2024 1:35 PM EDT 10/15/2024 1:38 PM EDT us Meek Sanchez MD LAB BLOOD ORDERABLES Final Result Performing Organization Address City/[facility]/ZIP Co de Phone Number [address] [place] [address], [place] * (ABNORMAL) Comprehensive metabolic panel (10/15/2024 1:35 PM EDT) SODIUM 137 134 - 146 mmol/L 10/15/2024 1:57 PM EDT [facility] POTASSIUM 4.1 3.5 - 5.0 mmol/L 10/15/2024 1:57 PM EDT [facility] CHLORIDE 105 98 - 109 mmol/L 10/15/2024 1:57 PM EDT [facility] CARBON DIOXIDE 21(L) 22 - 32 mmol/L 10/15/2024 1:57 PM EDT [facility] ANION GAP 11 5 - 15 mmol/L 10/15/2024 1:57 PM EDT [facility] BLOOD UREA NITROGEN 6 5 - 23 mg/dL 10/15/2024 1:57 PM EDT [facility] CREATININE 0.71 0.40 - 1.00 mg/dL 10/15/2024 1:57 PM EDT [facility] Comment:METHOD TRACEABLE TO IDMS STANDARD GLUCOSE 80 65 - 99 mg/dL 10/15/2024 1:57 PM EDT [facility] CALCIUM 9.0 8.5 - 10.5 mg/dL 10/15/2024 1:57 PM EDT [facility] TOTAL PROTEIN 7.1 6.0 - 8.0 g/dL 10/15/2024 1:57 PM EDT [facility] ALBUMIN 3.4 3.2 - 5.3 g/dL 10/15/2024 1:57 PM EDT [facility] ALKALINE PHOSPHATASE 76 39 - 130 U/L 10/15/2024 1:57 PM EDT [facility] AST 17 <=41 U/L 10/15/2024 1:57 PM EDT [facility] ALT 11 <=31 U/L 10/15/2024 1:57 PM EDT [facility] BILIRUBIN,TOTAL 0.7 0.3 - 1.2 mg/dL 10/15/2024 1:57 PM EDT [facility] EGFR Non-Race Dependent >90 >=60 ml/min/1.7 3sq.m 10/15/2024 1:57 PM EDT [facility] Comment: eGFR not reported due to non-numeric value for Creatinine. Reported eGFR is based on the CKD-EPI 2020 equation that does not use a race coefficient. Blood Venous blood / Unknown Venipuncture / Unknown 10/15/2024 1:35 PM EDT 10/15/2024 1:38 PM EDT us Meek Sanchez MD LAB BLOOD ORDERABLES Final Result [facility] [address] [place] [address], * (ABNORMAL) CBC auto differential (10/15/2024 1:35 PM EDT) WBC 13.0(H) 4 - 11 x10E9/L 10/15/2024 1:44 PM EDT [facility] RBC Count 4.82 3.8 - 5.2 X10E12/L 10/15/2024 1:44 PM EDT [facility] Hemoglobin 13.0 11.7 - 15.5 g/dL 10/15/2024 1:44 PM EDT [facility] Hematocrit 38.7 35 - 47 % 10/15/2024 1:44 PM EDT [facility] MCV 80 80 - 100 fL 10/15/2024 1:44 PM EDT [facility] MCH 27.1 27 - 34 pg 10/15/2024 1:44 PM EDT [facility] MCHC 33.7 32 - 36 g/dL 10/15/2024 1:44 PM EDT [facility] RDW 14.1 11.5 - 15 % 10/15/2024 1:44 PM EDT [facility] Platelet Count 362 150 - 450 X10E9/L 10/15/2024 1:44 PM EDT [facility] MPV 9.2 7 - 12 fL 10/15/2024 1:44 PM EDT [facility] Neutrophils % 73.2 % 10/15/2024 1:44 PM EDT [facility] Lymphocytes % 18.3 % 10/15/2024 1:44 PM EDT [facility] Monocytes % 8.0 % 10/15/2024 1:44 PM EDT [facility] Eosinophils % 0.3 % 10/15/2024 1:44 PM EDT [facility] Basophils % 0.2 % 10/15/2024 1:44 PM EDT [facility] Neutrophils Absolute (A) 9.5(H) 1.5 - 6.6 10*3/uL 10/15/2024 1:44 PM EDT [facility] Lymphocytes Absolute 2.4 1.0 - 3.5 10*3/uL 10/15/2024 1:44 PM EDT [facility] Monocytes Absolute 1.0(H) 0.0 - 0.9 10*3/uL 10/15/2024 1:44 PM EDT [facility] Eosinophils Absolute 0.0 0.0 - 0.4 10*3/uL 10/15/2024 1:44 PM EDT [facility] Basophils Absolute 0.0 0.0 - 0.2 10*3/uL 10/15/2024 1:44 PM EDT [facility] Differential Type AUTOMATED DIFFERENTIAL 10/15/2024 1:44 PM EDT [facility] Blood Venous blood / Unknown Venipuncture / Unknown 10/15/2024 1:35 PM EDT 10/15/2024 1:38 PM EDT us Meek Sanchez MD LAB BLOOD ORDERABLES Final Result [facility] [address] [place] [address], [place] * X-ray chest 1 view (10/15/2024 1:34 PM EDT) Anatomical Region Laterality Modality Body, Chest N/A Computed Radiogr aphy 10/15/2024 1:51 PM EDT Narrative 10/15/2024 1:51 PM EDT History: Near syncope Procedure: Chest AP portable upright Comparison: 04/22/2024 Findings: The heart and lungs show no acute findings, and the mediastinum and anushka are grossly negative . No pneumothorax. Impression: No acute pulmonary process. Finalized by Levi Baker MD on 10/15/2024 1:51 PM Procedure Note Levi Baker MD - 10/15/2024 History: Near syncope Procedure: Chest AP portable upright Comparison: 04/22/2024 Findings: The heart and lungs show no acute findings, and the mediastinumand anushka are grossly negative . No pneumothorax. Impression: No acute pulmonary process. Finalized by Levi Baker MD on 10/15/2024 1:51 PM us Meek Sanchez MD [facility] Final Result * ECG 12 lead (10/15/2024 12:35 PM EDT) 10/15/2024 12:3 5 PM EDT us Meek Sanchez MD ECG ORDERABLES Final Resul t TRACEMASTERVUE documented in this encounter Visit Diagnoses Diagnosis Orthostasis- Primary Orthostatic hypotension Near syncope Hyperemesis Persistent vomiting documented in this encounter Administered Medications Inactive Administered Medications - up to 3 most recent administrations Medication Order MAR Action Action Date Dose Rate Site sodium chloride 0.9 % bolus 1,000 mL, intravenous, at 984 mL/hr, Administer over 61 Minutes, Once, On Alicia 10/15/24 at 1300, For 1 dose New Bag 10/15/2024 1:27 PM EDT 1,000 mL 984 mL/hr documented in this encounter Active and Recently Administered Medications Times are shown in EDT. Scheduled Medication Order 10/13/2024 10/14/2024 10/15/2024 sodium chloride 0.9 % bolus (COMPLETED) 1,000 mL, intravenous, at 984 mL/hr, Administer over 61 Minutes, Once, On Alicia 10/15/24 at 1300, For 1 dose 1327 (New Bag - Prov ider: Alonzo Mix, DANIELLE)1458 (Stop Bag - Provider: Jenna Dumont RN) documented in this encounter Care Teams Civil Drafter Relationship Specialty Start Date End Date [facility], [facility] [address] [place] [address] PCP - General Family Medicine 10/15/24 documented as of this encounter
--- OUTSIDE RECORDS SUMMARY | 2024-10-26 11:00 | XMS_ITS | Encounter Summary ---
Author Organization [facility] Address [address] [place] [address] Care Team Providers Care Blast Furnace Auxiliaries Supervisor Name Role Phone Nano Back Unavailable Encounter Details Date Type Department Care Team (Latest Contact Info) Description 10/26/2024 11:00 AM EDT Ancillary Procedure [facility] [address] [facility] [place] [address] Screening, , for anatomic survey ([facility]) Social History Tobacco Use Types Packs/Day Years Used Date Smoking Tobacco: Never Smokeless Tobacco: Never Alcohol Use Standard Drinks/Week Comments Not Currently 3 (1 standard drink = 0.6 oz pur e alcohol) PHQ-2 Answer Date Recorded Patient Health Questionnaire-2 Score 2 2024 Estimated Date of Delivery Comme nts Yes [...] Care Team (Late st Contact Info) Description 11/23/2024 11:20 AM EDT Routine [facility] [address] [place] [address] Robert Marrero DO [address] [place] [address] documented as of this encounter Procedures Procedure Name Priority Date/Time Associated Diagnosis Comments US OB 14+ WEEKS ANATOMY SCAN Routine 10/26/2024 12:08 PM EDT Screening, , for anatomic survey ([facility]) documented in this encounter Results * US OB 14+ weeks anatomy scan (10/26/2024 12:08 PM EDT) Anatomical Region Laterality Modality Body Ultrasound 10/27/2024 7:26 AM EDT Narrative 10/27/2024 7:27 AM EDT EXAM: US OB 14+ WEEKS ANATOMY SCAN HISTORY: anatomy. COMPARISON: Ob ultrasound 08/06/2024. TECHNIQUE: Two-dimensional transabdominal grayscale ultrasound imaging of the pelvis was performed. FINDINGS: Gestation: Single Presentation: Variable Cardiac Activity: 167 beats per minute Placental Location: Posterior with no sonographic abnormalities identified. Distance from Placental Tip to Cervix: 4.3 cm Cervical Length: 3.8 cm Amniotic Fluid: Appears adequate MEASUREMENTS: BPD: 4.1 cm EGA: 18 weeks 4 days HC: 16.5 cm EGA: 19 weeks 1 days AC: 14.7 cm EGA: 20 weeks 0 days FL: 3.3 cm EGA: 20 weeks 1 days HC/AC Ratio: 1.12 The gestational age by today's ultrasound is 19 weeks 3 days (+/- 10 days gestation). Estimated Weight: 321 grams, +/- 48 grams ( 0 lb 11 oz). Weight Percentile for gestational age: 33 % ANATOMY C-Spine: Unremarkable T-Spine: Unremarkable L-Spine: Unremarkable Sacrum: Unremarkable Four Chamber Heart: Unremarkable LVOT: Unremarkable RVOT: Unremarkable Stomach: Unremarkable Kidneys: Unremarkable Bladder: Unremarkable Diaphragm: Unremarkable Cord insertion: Unremarkable Cord vessels: Not visualized Lateral Ventricles: Unremarkable Cerebellum: Unremarkable Cisterna Magna: Unremarkable Posterior Fossa: Unremarkable Right Femur: Unremarkable Left Femur: Unremarkable Right Tib/Fib: Unremarkable Left Tib/Fib: Unremarkable Right Rad/Ulnar: Unremarkable Left Rad/Ulnar: Unremarkable Right Humerus: Unremarkable Left Humerus: Unremarkable Nose/Lips: Not visualized Profile: Unremarkable Orbits: Unremarkable IMPRESSION: 1. Single, live intrauterine gestation 20 weeks, 1 days by LMP. Today's ultrasound measurements correlate with a gestational age of 19 weeks 3 days. Estimated weight is 321 grams, +/- 48 grams ( 0 lb 11 oz) which correlates to 33 %. MONIQUE by today's ultrasound is 03/19/2025. 2. Non-visualization of the three-vessel cord and nose/lips. A short-term follow-up ultrasound is recommended. Interpreted by: Electronically signed by LORENA DE II, MD, PHD at 27-Oct-2024 07:25:37 AM [facility] Procedure Note Lorena De MD - 10/27/2024 EXAM: US OB 14+ WEEKS ANATOMY SCAN HISTORY: anatomy. COMPARISON: Ob ultrasound 08/06/2024. TECHNIQUE: Two-dimensional transabdominal grayscale ultrasound imaging ofthe pelvis was performed. FINDINGS: Gestation: Single Presentation: Variable Cardiac Activity: 167 beats per minute Placental Location: Posterior with no sonographic abnormalitiesidentified. Distance from Placental Tip to Cervix: 4.3 cm Cervical Length: 3.8 cm Amniotic Fluid: Appears adequate MEASUREMENTS: BPD: 4.1 cm EGA: 18 weeks 4 days HC: 16.5 cm EGA: 19 weeks 1 days AC: 14.7 cm EGA: 20 weeks 0 days FL: 3.3 cm EGA: 20 weeks 1 days HC/AC Ratio: 1.12 The gestational age by today's ultrasound is 19 weeks 3 days (+/- 10 daysgestation). Estimated Weight: 321 grams, +/- 48 grams ( 0 lb 11 oz). Weight Percentile for gestational age: 33 % ANATOMY C-Spine: Unremarkable T-Spine: Unremarkable L-Spine: Unremarkable Sacrum: Unremarkable Four Chamber Heart: Unremarkable LVOT: Unremarkable RVOT: Unremarkable Stomach: Unremarkable Kidneys: Unremarkable Bladder: Unremarkable Diaphragm: Unremarkable Cord insertion: Unremarkable Cord vessels: Not visualized Lateral Ventricles: Unremarkable Cerebellum: Unremarkable Cisterna Magna: Unremarkable Posterior Fossa: Unremarkable Right Femur: Unremarkable Left Femur: Unremarkable Right Tib/Fib: Unremarkable Left Tib/Fib: Unremarkable Right Rad/Ulnar: Unremarkable Left Rad/Ulnar: Unremarkable Right Humerus: Unremarkable Left Humerus: Unremarkable Nose/Lips: Not visualized Profile: Unremarkable Orbits: Unremarkable IMPRESSION: 1. Single, live intrauterine gestation 20 weeks, 1 days by LMP. Today'sultrasound measurements correlate with a gestational age of 19 weeks 3days. Estimated weight is 321 grams, +/- 48 grams ( 0 lb 11 oz)which correlates to 33 %. MONIQUE by today's ultrasound is 03/19/2025. 2. Non-visualization of the three-vessel cord and nose/lips. A miedf-vhmhyzngkw-du ultrasound is recommended. Interpreted by: Electronically signed by LORENA DE II, MD, PHD 07:25:37 AM [facility] us Robert Janes DO IMG OB US PROCEDURES Final Resul t documented in this encounter Visit Diagnoses Diagnosis Screening, , for anatomic survey ([facility]) Encounter for anatomic survey documented in this encounter Care Teams [employer] Supervisor Relationship Specialty Start Date End Date Nano Back PA [address] [place] [address] PCP - [facility] 01/07/24 documented as of this encounter
--- OUTSIDE RECORDS SUMMARY | 2024-10-26 13:20 | XMS_ITS | Encounter Summary ---
Author Organization [facility] Address [address] [place] [address] Care Team Providers Care Bench Tool Maker Name Role Phone Nano Back Unavailable Reason for Visit * Reason Comments Routine Visit Encounter Details Date Type Department Care Team (Late st Contact Info) Description 10/26/2024 1:20 PM EDT Routine [facility] [address] [place] [id number] Nano Back PA [address] [place], [facility] 20 weeks gestation of ([facility]); Second trimester ([facility]) Social History Tobacco Use Types Packs/Day Years [...] Sign Reading Time Taken Comments Blood Pressure 108/70 10/26/2024 1:28 PM EDT Pulse - - Temperature - - Respiratory Rate - - Oxygen Saturation - - Inhaled Oxygen Concentration - - Weight 116 kg (255 lb 12.8 oz) 10/26/2024 1:28 P M EDT Height - - Body Mass Index 41.29 08/08/2022 12:00 PM EDT documented in this encounter Progress Notes * GENE Gutierrez - 10/26/2024 1:20 PM EDT Reason for Appointment: Patient ID: Lia Blunt is a 24 y.o. female who presents for Routine Visit Patient presents today for Return OB appointment. MEDICATIONS Current Outpatient Medications Medication Instructions metoclopramide (REGLAN) 10 mg, Oral, 3 times daily before meals, Take 1 tablet by mouth 30 minutes prior to meals 3 times daily as needed for nausea. 27-1 MG tablet 1 tablet, Daily ALLERGIES Allergies Allergen Reactions Azithromycin Macrolides And Ketolides Unknown Metronidazole GI intolerance Other Reaction(s): Vomiting Wound Dressing Adhesive PROBLEMS Active Ambulatory Problems Diagnosis Date Noted 38 weeks gestation of ([facility]) 11/28/2023 Resolved Ambulatory Problems Diagnosis Date Noted [...] Exam Constitutional: Appearance: Normal appearance. She is normal weight. HENT: Head: Normocephalic. Cardiovascular: Rate and Rhythm: Normal rate. Pulses: Normal pulses. Pulmonary: Effort: Pulmonary effort is normal. Breath sounds: Normal breath sounds. Abdominal: Palpations: Abdomen is soft. Musculoskeletal: General: Normal range of motion. Neurological: General: No focal deficit present. Mental Status: She is alert and oriented to person, place, and time. Psychiatric: Mood and Affect: Mood normal. Behavior: Behavior normal. Thought Content: Thought content normal. Judgment: Judgment normal. Vitals and nursing note reviewed. Vitals: Estimated body mass index is 41.29 kg/m?? as calculated from the following: Height as of 08/08/22: 5' 6 . Weight as of this encounter: 255 lb 12.8 oz. BP: 108/70 No LMP recorded (lmp unknown). Patient is . ASSESSMENT & PLAN ICD-10-CM 1. 20 weeks gestation of ([facility]) Z3A.20 POCT urinalysis dipstick manually resulted 2. Second trimester ([facility]) Z34.92 POCT urinalysis dipstick manually resulted Return OB: Patient presents today for a routine obstetrics appointment. Patient is currently 20w1d . Patient states she is doing well but has complaints of being tired due to current . Patient has verbalizes frequent movement. Orders Placed This Encounter Procedures POCT urinalysis dipstick manually resulted Follow Up: Patient is to return to office in 2 week for routine OB appointment. Documented by GENE Gutierrez on behalf of: GENE Gutierrez documented in this encounter Plan of Treatment Upcoming Encounters Date Type Department Care Team (Late st Contact Info) Description 11/23/2024 11:20 AM EDT Routine [facility] [address] [facility] [place] [id number] Robert Marrero, [address] [place] [address] documented as of this encounter Procedures Procedure Name Priority Date/Time Associated Diagnosis Comments POCT URINALYSIS DIPSTICK Routine 10/26/2024 1:36 PM EDT 20 weeks gestation of ([facility]) Second trimester ([facility]) documented in this encounter Results * POCT urinalysis dipstick manually resulted (10/26/2024 1:36 PM EDT) Color, UA Yellow Clarity, UA Clear Glucose, UA Negative Negative - 2000(110) ++++ mg/dL Bilirubin, UA Negative Negative - 4(70) +++ mg/dL Ketones, UA Negative Negative - 160(16) ++++ mg/dL Spec Grav, UA 1.020 1 - 1.03 Blood, UA Negative Negative - 50 [place]/mcL pH, UA 6.0 5 - 9 Protein, UA Negative Negative - 2000(20) ++++ mg/dL Urobilinogen, UA 1.0 0.2 - 12 mg/dL Leukocytes, UA Negative Negative - 500+++ Pierre/mcL Nitrite, UA Negative Negative - Positive Urine 10/26/2024 1:36 PM EDT Nano MILLS POINT OF CARE TEST ENTER/EDIT OR DERABLES Final Result documented in this encounter Visit Diagnoses Diagnosis 20 weeks gestation of ([facility]) Second trimester ([facility]) state, incidental documented in this encounter Care Teams Bench Tool Maker Relationship Specialty Start Date End Date Nano Back PA [address] [place] [address] [place] [address] PCP - [facility] 01/07/24 documented as of this encounter
--- OUTSIDE RECORDS SUMMARY | 2024-10-27 13:23 | XMS_ITS | Encounter Summary ---
Author Organization [employer] [facility] tem Address [id number] [address] [place] [address] Care Team Providers Care Casing Cleaner Name Role Phone [facility] Primary Care Provider Encounter Details Date Type [...] on filedocumented in this encounter Care Teams Casing Cleaner Relationship Specialty Start Date End Date [facility] [address] [place], [place] PCP - General Family Medicine 10/15/24 documented as of this encounter
--- OUTSIDE RECORDS SUMMARY | 2024-10-27 13:23 | XMS_ITS | Encounter Summary ---
Author Organization [facility] Address [address] [place] [address] Care Team Providers Care Tower Air Traffic Control Specialist Name Role Phone [place]Nano Unavailable Encounter Details Date Type Department Care Team (Late st Contact Info) Description 11/22/2023 Abstract [facility] OB [address] [place] [address] Robert Marrero [facility] [place], [facility] Social History Tobacco Use Types Packs/Day [...] Routine [facility] OB [address] [place] [address] Robert Marrero [facility] [address] [place], [facility] documented as of this encounter Visit Diagnoses Not on filedocumented in this encounter Care Teams Tower Air Traffic Control Specialist Relationship Specialty Start Date End Date Nano Back PA [address] [place] [address] [place] [address] PCP - [facility] 01/07/24 documented as of this encounter
--- OUTSIDE RECORDS SUMMARY | 2024-10-27 13:23 | XMS_ITS | Encounter Summary ---
Author Organization [facility] Address [address] [place] [address] Care Team Providers Care Maritime Engineer Name Role Phone FruitlandNano Unavailable Encounter Details Date Type Department Care Team (Late st Contact Info) Description 09/04/2023 Abstract [facility] OB [address] [place] [address] Roebrt Marrero, DO [facility] [address] [place], [place] [address] Social History Tobacco Use Types Packs/Day Years [...] Description 11/23/2024 11:20 AM EDT Routine [facility] OB [address] [place] [address] Robert Marrero, DO [address] [place], [facility]11 documented as of this encounter Visit Diagnoses Not on filedocumented in this encounter Care Teams Maritime Engineer Relationship Specialty Start Date End Date Nano Back PA [address] [place] [address] [place] [address] PCP - [facility] 01/07/24 documented as of this encounter
--- OUTSIDE RECORDS SUMMARY | 2024-10-27 13:23 | XMS_ITS | Encounter Summary ---
Author Organization [facility] Address [address] [place] [address] Care Team Providers Care Track Service Worker Name Role Phone Nano Back Unavailable Encounter Details Date Type Department Care Team (Late st Contact Info) Description 07/31/2023 Clinisync Result Encounter [facility] External Department Unsolicited Elsi Marrero, DO [address] [place], [place] [id number] Social History Tobacco Use Types Packs/Day Years [...] Routine [facility] BCP OB [address] [place] [phone] Elsi Marrero DO [facility] [place] [address] documented as of this encounter Procedures Procedure Name Priority Date/Time Associated Diagnosis Comments US OB CERVICAL LENGTH 07/31/2023 12:29 PM EDT documented in this encounter Results * US OB CERVICAL LENGTH (07/31/2023 12:29 PM EDT) Anatomical Region Laterality Modality Other 07/31/2023 12:2 9 PM EDT Narrative 07/31/2023 12:32 [place] [address] Ultrasound Report Signed Patient: LIA DESAI MR#: [id number] : 2000 Acct:[id number] Age/Sex: 22 / F ADM Date: 07/31/23 Loc: [facility] Attending Dr: Elsi Marrero D.O. Ordering Physician: Elsi Marrero D.O. Date of Service: 07/31/23 Procedure(s): US OB cervical length Accession Number(s): [id number] cc: Elsi Marrero D.O.; Physician,Non-Staff M.DMarisabel [place] [address] Patient Name: LIA DESAI MRN: [id number] date: 2000 Sex: F Assigned Patient Location: [facility] Current Patient Location: [facility] Accession/Order Number: [id number] Exam Date: 07/31/2023 10:47 Report Date: 07/31/2023 [...] Signed By: 07/31/23 1232 DD/ 1229 TD/TT: Computer Technology Trainer: Procedure Note Radiology, Radiologist, MD - 07/31/2023 [place] [address] Ultrasound Report Signed Patient: LIA DESAI R#: [id number] : 2000Acct:[id number] Age/Sex: 22 FADM Date: 07/31/23 Loc: [facility] Attending Dr: Elsi Marrero D.O. Ordering Physician: Elsi Marrero D.O. Date of Service: 07/31/23 Procedure(s): US OB cervical length Accession Number(s): [id number] cc: Elsi Marrero D.O.; Physician,Non-Staff Nena The [place] [id number] Patient Name: LIA DESAI MRN: [id number] date: 2000 Sex: F Assigned Patient Location: [facility] Current Patient Location: [facility] Accession/Order Number: [id number] Exam Date: 07/31/2023 10:47 Report Date: 07/31/2023 [...] M.D. Signed By:07/31/23 1232 DD/ 1229 TD/TT: Computer Technology Trainer: us Elsi Janes DO [facility] Final Result documented in this encounter Visit Diagnoses Not on filedocumented in this encounter Care Teams Track Service Worker Relationship Specialty Start Date End Date Nano Back PA [address] [facility] [place] [address] PCP - [facility] 01/07/24 documented as of this encounter
--- OUTSIDE RECORDS SUMMARY | 2024-10-27 13:23 | XMS_ITS | Encounter Summary ---
Author Organization [facility] Address [address] [place] [address] Care Team Providers Care Newspaper Illustrator Name Role Phone DublinNano Unavailable Encounter Details Date Type Department Care Team (Late st Contact Info) Description 08/22/2023 Abstract [facility] [address] [facility] [place] [address] Margi Marie LPN 102 [employer] [facility] [address] [place] [address] Social History Tobacco Use Types Packs/Day Years [...] Description 11/23/2024 11:20 AM EDT Routine [facility] OB [address] [place] [address] Robert Marrero DO [address] [facility] [address] [place], [place] [phone] documented as of this encounter Visit Diagnoses Not on filedocumented in this encounter Care Teams Newspaper Illustrator Relationship Specialty Start Date End Date Nano Back PA [address] [place] [address] [place] [address] PCP - [facility] 01/07/24 documented as of this encounter
--- OUTSIDE RECORDS SUMMARY | 2024-10-27 13:23 | XMS_ITS | Encounter Summary ---
Author Organization [facility] Address [address] [place] [address] Care Team Providers Care Analytic Programmer Name Role Phone FultonNano Unavailable Encounter Details Date Type Department Care Team (Late st Contact Info) Description 12/13/2023 Abstract [facility] OB [address] [place] [address] Robert Marrero [facility] [place], [facility]11 Social History Tobacco Use Types [...] Routine [facility] BCP OB [address] [place] [address] Robert Marrero [facility] [place], [facility] documented as of this encounter Visit Diagnoses Not on filedocumented in this encounter Care Teams Analytic Programmer Relationship Specialty Start Date End Date Nano Back PA [address] [place] [address] [place] [address] PCP - [facility] 01/07/24 documented as of this encounter
--- OUTSIDE RECORDS SUMMARY | 2024-10-27 13:23 | XMS_ITS | Encounter Summary ---
Author Organization [facility] Address [address] [place] [address] Care Team Providers Care Lap Hand Tool Name Role Phone BeaufortNano Unavailable Encounter Details Date Type Department Care Team (Late st Contact Info) Description 12/05/2023 Abstract [facility] OB [address] [place] [address] Robert Marrero [facility] [place], [facility]11 Social History Tobacco Use Types Packs/Day Years [...] Routine [facility] BCP OB [address] [place] [address] Robert Marrero DO [facility] [place], [facility]11 documented as of this encounter Visit Diagnoses Not on filedocumented in this encounter Care Teams Lap Hand Tool Relationship Specialty Start Date End Date Nano Back PA [address] [place] [address] [place] [address] PCP - [facility] 01/07/24 documented as of this encounter
--- OUTSIDE RECORDS SUMMARY | 2024-10-27 13:23 | XMS_ITS | Encounter Summary ---
Author Organization [employer] [facility] tem Address [id number] [address] [place] [address] Care Team Providers Care Applications Tester Name Role Phone Services, [facility] Primary Care Provider Encounter Details Date Type Department Care Team (Late st Contact Info) Description 04/05/2023 Telephone [facility] Certified Nurse Risk And Insurance Consultant - [place] [address] [facility] [address] [place] [address] Dorota Dewitt Social History Tobacco [...] documented as of this encounter Care Teams Applications Tester Relationship Specialty Start Date End Date [facility], [facility] [address] [place] PCP - General Family Medicine 10/15/24 documented as of this encounter
--- OUTSIDE RECORDS SUMMARY | 2024-10-27 13:23 | XMS_ITS | Encounter Summary ---
Author Organization [facility] Address [address] [place] [address] Care Team Providers Care Circuit Court Clerk Name Role Phone Nano Back Unavailable Encounter Details Date Type Department Care Team (Late st Contact Info) Description 10/01/2023 Clinisync Result Encounter [facility] External Department Unsolicited Elsi Marrero, [address] [place], [place] [phone] Social History Tobacco Use Types Packs/Day Years [...] Description 11/23/2024 11:20 AM EDT Routine [facility] OB [address] [place] [phone] Elsi Marrero [address] [place] [address] documented as of this encounter Procedures Procedure Name Priority Date/Time Associated Diagnosis Comments US OB GROWTH 10/01/2023 11:17 AM EDT documented in this encounter Results * US OB GROWTH (10/01/2023 11:17 AM EDT) Anatomical Region Laterality Modality Other 10/01/2023 11:1 7 AM EDT Narrative 10/01/2023 11:20 [place] [address] Ultrasound Report Signed Patient: LIA DESAI MR#: [id number] : 2000 Acct:[id number] Age/Sex: 22 / F ADM Date: 10/01/23 Loc: [facility] Attending Dr: Elsi Marrero D.O. Ordering Physician: Elsi Marrero D.O. Date of Service: 10/01/23 Procedure(s): US OB growth Accession Number(s): [id number] cc: Elsi Marrero D.O.; Physician,Non-Staff M.Corie [place] [address] Patient Name: LIA DESAI MRN: [id number] date: 2000 Sex: F Assigned Patient Location: [facility] Current Patient Location: [facility] Accession/Order Number: [id number] Exam Date: 10/01/2023 10:42 Report Date: 10/01/2023 [...] IMPRESSION: Normal interval growth Electronically authenticated by: MARKIE KATE Date: 10/01/2023 11:17 Dictated By: Markie Kate M.D. Signed By: 10/01/23 1120 DD/ 1117 TD/TT: Jammer Hooker: Procedure Note Radiology, Radiologist, MD - 10/01/2023 [place] [address] Ultrasound Report Signed Patient: LIA DESAI LMR#: [id number] : 2000Acct:[id number] Age/Sex: 22 / FADM Date: 10/01/23 Loc: [facility] Attending Dr: Elsi Marrero D.O. Ordering Physician: Elsi Marrero D.O. Date of Service: 10/01/23 Procedure(s): US OB growth Accession Number(s): [id number] cc: Elsi Marrero D.O.; Physician,Non-Staff Nena The [address] [address] Patient Name: LIA DESAI MRN: [id number] date: 2000 Sex: F Assigned Patient Location: [facility] Current Patient Location: [facility] Accession/Order Number: [id number] Exam Date: 10/01/2023 10:42 Report Date: 10/01/2023 [...] IMPRESSION: Normal interval growth Electronically authenticated by: MARKIE KATE Date: 10/01/2023 11:17 Dictated By: Markie Kate M.D. Signed By:10/01/23 1120 DD/ 1117 TD/TT: Jammer Hooker: us Elsi Janes DO [facility] Final Result documented in this encounter Visit Diagnoses Not on filedocumented in this encounter Care Teams Circuit Court Clerk Relationship Specialty Start Date End Date Nano Back PA [address] [place] [address] [place] [address] [facility] - [facility] 01/07/24 documented as of this encounter
--- OUTSIDE RECORDS SUMMARY | 2024-10-27 13:23 | XMS_ITS | Encounter Summary ---
Author Organization [facility] Address [address] [place] [address] Care Team Providers Care Steel Die Printer Name Role Phone [place] Unavailable Encounter Details Date Type Department Care Team (Late st Contact Info) Description 07/29/2023 Abstract [facility] [address] [facility] [place] [address] Margi Marie LPN [address] [facility] [place] [address] Social History Tobacco Use Types Packs/Day Years [...] Description 11/23/2024 11:20 AM EDT Routine [facility] OB [address] [place] [address] Robert Marrero DO [address] [facility] [address] [place], [place] [id number] documented as of this encounter Visit Diagnoses Not on filedocumented in this encounter Care Teams Steel Die Printer Relationship Specialty Start Date End Date Nano Back PA [address] [place] [address] [place] [address] PCP - [facility] 01/07/24 documented as of this encounter
--- OUTSIDE RECORDS SUMMARY | 2024-10-27 13:23 | XMS_ITS | Encounter Summary ---
Author Organization [employer] [facility] tem Address [id number] [address] [place] [address] Care Team Providers Care Labor Custodian Name Role Phone [facility] Primary Care Provider Encounter Details Date Type Department Care Team (Late st Contact Info) Description 08/30/2022 Orders Only [facility] Certified Nurse Printing Estimator - [place] [address] [facility] [address] [place] [address] Leah Hernandez RN Miscarriage Social [...] documented as of this encounter Care Teams Labor Custodian Relationship Specialty Start Date End Date [facility] [address] [place], [place] PCP - General Family Medicine 10/15/24 documented as of this encounter
--- OUTSIDE RECORDS SUMMARY | 2024-10-27 13:23 | XMS_ITS | Clinical Summary ---
Author Organization [facility] [employer] [facility] tem Address [facility]-[id number] [address] [place] [address] Care Team Providers Care Catering Associate Name Role Phone [facility], [facility] Primary Care Provider Allergies Active Allergy [...] EDT - 10/15/2024 3:51 PM EDT Emergency [facility] Emergency [address] [place] [address] Meek Sanchez MD Orthostasis (Primary Dx); Near syncope; Hyperemesis Discharge Disposition: Home 10/15/2024 Travel 08/03/2024 11:52 AM EDT - 08/03/2024 2:18 PM EDT Emergency [facility] - Emergency [address] [place] [address] Levi Singh MD Nausea and vomiting during [...] <2 <16 ng/L 10/15/2024 3:14 PM EDT [facility] Blood Venous blood / Unknown Venipuncture / Unknown 10/15/2024 2:39 PM EDT 10/15/2024 2:45 PM EDT us Meek Sanchez MD LAB BLOOD ORDERABLES Final Result Performing Organization Address City/[facility]/ZIP Co de Phone Number [address] [place] [address], [place] * Troponin I, High Sensitivity 0 Hour (10/15/2024 1:35 PM EDT) TROPONIN I, HIGH SENSITIVITY <2 <16 ng/L 10/15/2024 2:07 PM EDT [facility] Blood Venous blood / Unknown Venipuncture / Unknown 10/15/2024 1:35 PM EDT 10/15/2024 1:38 PM EDT us Meek Sanchez MD LAB BLOOD ORDERABLES Final Result Performing Organization Address [facility] Co de Phone Number [address] [place] [address], [place] * SST TOP (10/15/2024 1:35 PM EDT) Extra Tube Auto Resulted 10/15/2024 3:02 PM EDT [facility] Blood Venous blood / Unknown 10/15/2024 1:35 PM EDT 10/15/2024 1:39 PM EDT us Meek Sanchez MD LAB BLOOD ORDERABLES Final Result Performing Organization Address City/[facility]/ZIP Co de Phone Number [address] [place] [address], [place] * Light Blue Top (10/15/2024 1:35 PM EDT) Extra Tube Auto Resulted 10/15/2024 3:02 PM EDT [facility] Blood Venous blood / Unknown 10/15/2024 1:35 PM EDT 10/15/2024 1:39 PM EDT us Meek Sanchez MD LAB BLOOD ORDERABLES Final Result [facility] [address] [place] [address], [place] * (ABNORMAL) CBC auto differential (10/15/2024 1:35 PM EDT) Only the most recent of2 resultswithin the time period is included. WBC 13.0(H) 4 - 11 x10E9/L 10/15/2024 1:44 PM EDT [facility] RBC Count 4.82 3.8 - 5.2 X10E12/L 10/15/2024 1:44 PM EDT [facility] Hemoglobin 13.0 11.7 - 15.5 g/dL 10/15/2024 1:44 PM EDT [facility] Hematocrit 38.7 35 - 47 % 10/15/2024 1:44 PM EDT [facility] MCV 80 80 - 100 fL 10/15/2024 1:44 PM EDT [facility] MCH 27.1 27 - 34 pg 10/15/2024 1:44 PM EDT [facility] MCHC 33.7 32 - 36 g/dL 10/15/2024 1:44 PM EDT [facility] RDW 14.1 11.5 - 15 % 10/15/2024 1:44 PM EDT [facility] Platelet Count 362 150 - 450 X10E9/L 10/15/2024 1:44 PM EDT [facility] MPV 9.2 7 - 12 fL 10/15/2024 1:44 PM EDT [facility] Neutrophils % 73.2 % 10/15/2024 1:44 PM EDT [facility] Lymphocytes % 18.3 % 10/15/2024 1:44 PM EDT [facility] Monocytes % 8.0 % 10/15/2024 1:44 PM EDT [facility] Eosinophils % 0.3 % 10/15/2024 1:44 PM EDT [facility] Basophils % 0.2 % 10/15/2024 1:44 PM EDT [facility] Neutrophils Absolute (A) 9.5(H) 1.5 - 6.6 10*3/uL 10/15/2024 1:44 PM EDT [facility] Lymphocytes Absolute 2.4 1.0 - 3.5 10*3/uL 10/15/2024 1:44 PM EDT [facility] Monocytes Absolute 1.0(H) 0.0 - 0.9 10*3/uL 10/15/2024 1:44 PM EDT [facility] Eosinophils Absolute 0.0 0.0 - 0.4 10*3/uL 10/15/2024 1:44 PM EDT [facility] Basophils Absolute 0.0 0.0 - 0.2 10*3/uL 10/15/2024 1:44 PM EDT [facility] Differential Type AUTOMATED DIFFERENTIAL 10/15/2024 1:44 PM EDT [facility] Blood Venous blood / Unknown Venipuncture / Unknown 10/15/2024 1:35 PM EDT 10/15/2024 1:38 PM EDT us Meek Sanchez MD LAB BLOOD ORDERABLES Final Result Performing Organization Address City/[facility]/ZIP Co de Phone Number [facility] [address] [place] [address], * B-type natriuretic peptide (10/15/2024 1:35 PM EDT) BNP 5 <=100 pg/mL 10/15/2024 2:41 PM EDT [facility] Blood Venous blood / Unknown Venipuncture / Unknown 10/15/2024 1:35 PM EDT 10/15/2024 1:38 PM EDT us Meek Sanchez MD LAB BLOOD ORDERABLES Final Result [facility] [address] [place] [address] [place] [address], [place] * Magnesium (10/15/2024 1:35 PM EDT) Only the most recent of2 resultswithin the time period is included. MAGNESIUM 2.0 1.8 - 2.6 mg/dL 10/15/2024 1:57 PM EDT [facility] Blood Venous blood / Unknown Venipuncture / Unknown 10/15/2024 1:35 PM EDT 10/15/2024 1:38 PM EDT us Meek Sanchez MD LAB BLOOD ORDERABLES Final Result [address] [place] [address], [place] * (ABNORMAL) Comprehensive metabolic panel (10/15/2024 1:35 PM EDT) Only the most recent of2 resultswithin the time period is included. SODIUM 137 134 - 146 mmol/L 10/15/2024 1:57 PM EDT [facility] POTASSIUM 4.1 3.5 - 5.0 mmol/L 10/15/2024 1:57 PM EDT [facility] CHLORIDE 105 98 - 109 mmol/L 10/15/2024 1:57 PM EDT [facility] CARBON DIOXIDE 21(L) 22 - 32 mmol/L 10/15/2024 1:57 PM EDT [facility] ANION GAP 11 5 - 15 mmol/L 10/15/2024 1:57 PM EDT [facility] BLOOD UREA NITROGEN 6 5 - 23 mg/dL 10/15/2024 1:57 PM EDT [facility] CREATININE 0.71 0.40 - 1.00 mg/dL 10/15/2024 1:57 PM EDT [facility] Comment:METHOD TRACEABLE TO IDMS STANDARD GLUCOSE 80 65 - 99 mg/dL 10/15/2024 1:57 PM EDT [facility] CALCIUM 9.0 8.5 - 10.5 mg/dL 10/15/2024 1:57 PM EDT [facility] TOTAL PROTEIN 7.1 6.0 - 8.0 g/dL 10/15/2024 1:57 PM EDT [facility] ALBUMIN 3.4 3.2 - 5.3 g/dL 10/15/2024 1:57 PM EDT [facility] ALKALINE PHOSPHATASE 76 39 - 130 U/L 10/15/2024 1:57 PM EDT [facility] AST 17 <=41 U/L 10/15/2024 1:57 PM EDT [facility] ALT 11 <=31 U/L 10/15/2024 1:57 PM EDT [facility] BILIRUBIN,TOTAL 0.7 0.3 - 1.2 mg/dL 10/15/2024 1:57 PM EDT [facility] EGFR Non-Race Dependent >90 >=60 ml/min/1.7 3sq.m 10/15/2024 1:57 PM EDT [facility] Comment: eGFR not reported due to non-numeric value for Creatinine. Reported eGFR is based on the CKD-EPI 2020 equation that does not use a race coefficient. Blood Venous blood / Unknown Venipuncture / Unknown 10/15/2024 1:35 PM EDT 10/15/2024 1:38 PM EDT us Meek Sanchez MD LAB BLOOD ORDERABLES Final Result [facility] [address] [place] [address], * X-ray chest 1 view (10/15/2024 1:34 [...] Meek Sanchez MD IMG DIAGNOSTIC IMAGING [facility] Final Result * ECG 12 lead (10/15/2024 12:35 PM EDT) 10/15/2024 12:3 5 PM EDT Meek Sanchez MD ECG ORDERABLES Final Resul t TRACEMASTERVUE * (ABNORMAL) POCT , urine (08/03/2024 1:01 PM EDT) POC Urine Positive(A ) Negative 08/03/2024 12:59 PM EDT [facility] Urine 08/03/2024 1:01 PM EDT 08/03/2024 12:59 PM EDT us Levi Singh MD POINT OF CARE TEST ORDERABLES F inal Result [facility] [address] [place] [address], [place] * (ABNORMAL) POCT Nursing Urine Macroscopic UA (08/03/2024 12:59 PM EDT) POC Urine Specific [place] 1.025(A) (none) 08/03/2024 12:56 PM EDT [facility] POC Urine Leukocyte Esterase Negative Negative 08/03/2024 12:56 PM EDT [facility] POC Urine Nitrite Negative Negative 08/03/2024 12:56 PM EDT [facility] POC Urine pH 7.0 5.0, 6.0, 6.5, 7.0, 7.5, 8.0, 8.5, 5.5 08/03/2024 12:56 PM EDT [facility] POC Urine Protein 100 mg/dL(A) Negative 08/03/2024 12:56 PM EDT [facility] POC Urine Glucose Negative Negative 08/03/2024 12:56 PM EDT [facility] POC Urine Ketones 15 mg/dL(A) Negative 08/03/2024 12:56 PM EDT [facility] POC Urine Urobilinogen 1.0 E.U./dL 0.2 E.U./dL, 1.0 E.U./dL 08/03/2024 12:56 PM EDT [facility] POC Urine Bilirubin Small(A) Negative 08/03/2024 12:56 PM EDT [facility] POC Urine Blood/HGB Small(A) Negative 08/03/2024 12:56 PM EDT [facility] Urine 08/03/2024 12:5 9 PM EDT 08/03/2024 12:56 PM EDT us Levi Singh MD POINT OF CARE TEST ORDERABLES F inal Result [facility] [address] [place] [address], [place] * Ultrasound less than 14 weeks single (08/03/2024 12:41 PM EDT) Anatomical Region Laterality Modality OB-ESTHETICIAN AND MANAGER MEDICAL SPA Ultrasound 08/03/2024 12:4 9 PM EDT Narrative 08/03/2024 12:52 PM EDT US PREG LESS THAN 14 WKS SINGLE CLINICAL INDICATION: vomiting FINDINGS: limited transabdominal ultrasound of the pelvis. UTERUS AND GESTATIONAL SAC: Intrauterine gestation: Single. Gestational sac: Intrauterine. Yolk sac: 0.3 cm [place]-rump length (CRL): 1.6 cm heart motion: 174 [...] Gestational sac: Intrauterine. Yolk sac: 0.3 cm [place]-rump length (CRL): 1.6 cm heart motion: 174 [...] on 08/03/2024 12:52 PM us Sarai Jose DANCING MASTER-KINDERGARTEN ASSISTANT IMG US ORDERABLES Final Re sult * Chlamydia/GC by PCR Bisi Swab (05/01/2024 11:20 AM EST) Specimen source CERVIX 5:35 PM EST [facility] Comment:Corrected on 05/01 A T 1735: Previously reported as SWAB Chlamydia DNA PCR Negative Negative^N egative 05/04/2024 11:02 AM EST [facility] Comment: Chlamydia trachomatis not detected by nucleic acid amplification. This does not exclude the possibility of infection because results are dependent on adequate specimen collection. Gonorrhea DNA PCR Negative Negative^N egative 05/04/2024 11:02 AM EST [facility] Comment: Neisseria gonorrhoeae not detected by nucleic acid amplification. This does not exclude the possibility of infection because results are dependent on adequate specimen collection. GENS 05/01/2024 11:2 0 AM EST 05/01/2024 5:34 PM EST Tom Coto DO MICROBIOLOGY - GENERAL ORDERABLES Edited Result - Final [facility] [address] [facility], [address] [place] [address] from Last 3 Months or Most Recently Relevant to Health Maintenance Insurance [place] Advance Directives * Full Code (Latest Code Status on File) Date Activated Date Inactivated Comments 07/30/2023 4:35 PM 07/30/2023 7:06 PM Care Teams Catering Associate Relationship Specialty Start Date End Date Services, [facility] [address] [place], [place] PCP - General Family Medicine 10/15/24
--- OUTSIDE RECORDS SUMMARY | 2024-10-27 13:23 | XMS_ITS | Encounter Summary ---
Author Organization [employer] [facility] tem Address [id number] [address] [place] [address] Care Team Providers Care Top Lift Trimmer Name Role Phone [facility] Primary Care Provider Encounter Details Date Type Department Care Team (Late st Contact Info) Description 08/14/2022 Orders Only [facility] Certified Nurse Hotel Security Officer - [place] [address] [facility] [address] [place] [address] External, Scanning Provider Social History [...] BLOOD ORDERABLES Final Result Performing Organization Address [facility] de Phone Number MANUALLY TRANSCRIBED RESULTS * Comprehensive metabolic panel (08/11/2022) us Scanning Provider External LAB BLOOD ORDERABLES Final Result Performing Organization Address [facility] de Phone Number MANUALLY TRANSCRIBED RESULTS * CBC W Auto Diff Bld (08/11/2022) us Scanning Provider External LAB BLOOD ORDERABLES Final Result Performing Organization Address [facility] de Phone Number MANUALLY TRANSCRIBED RESULTS * Ultrasound less than 14 weeks single (08/11/2022) Anatomical Region Laterality Modality OB-SIGNAL CIRCUIT DESIGNER Ultrasound us Scanning Provider External IMG US ORDERABLES Fin al Result documented in this encounter Visit Diagnoses Not on filedocumented in this encounter Additional Health Concerns Infection Onset Date Last Indicated Resolved Time COVID-19 Rule-Out 07/11/2023 07/11/2023 07/11/2023 5:57 PM EDT documented as of this encounter Care Teams Top Lift Trimmer Relationship Specialty Start Date End Date Services, [facility] [address] [place], [place] PCP - General Family Medicine 10/15/24 documented as of this encounter
--- OUTSIDE RECORDS SUMMARY | 2024-10-27 13:23 | XMS_ITS | Encounter Summary ---
Author Organization [employer] [facility] tem Address [id number] [address] [place] [address] Care Team Providers Care Mill Hand Name Role Phone [facility] Primary Care Provider Encounter Details Date Type Department Care Team (Late st Contact Info) Description 10/02/2022 Documentation [facility] Certified Nurse Loan Operations Manager - [place] [address] [facility] [address] [place] [address] Leha Hernandez RN Social History Tobacco Use Types [...] documented as of this encounter Care Teams Mill Hand Relationship Specialty Start Date End Date [place] [address] [address] [place], [place] PCP - General Family Medicine 10/15/24 documented as of this encounter
--- OUTSIDE RECORDS SUMMARY | 2024-10-27 13:23 | XMS_ITS | Encounter Summary ---
Author Organization [facility] Address [address] [place] [address] Care Team Providers Care Psychiatric Rn Name Role Phone [place]ano Unavailable Encounter Details Date Type Department Care Team (Late st Contact Info) Description 11/14/2023 Abstract [facility] OB [address] [place] [address] Robert Marrero DO [facility] [place], [place] [address] Social History Tobacco Use Types Packs/Day Years [...] Routine [facility] BCP OB [address] [place] [address] Robert Marrero [facility] [place], [facility] documented as of this encounter Visit Diagnoses Not on filedocumented in this encounter Care Teams Psychiatric Rn Relationship Specialty Start Date End Date Nano Back PA [address] [place] [address] [place] [address] PCP - [facility] 01/07/24 documented as of this encounter
--- OUTSIDE RECORDS SUMMARY | 2024-10-27 13:23 | XMS_ITS | Encounter Summary ---
Author Organization [facility] Address [address] [place] [address] Care Team Providers Care Community Health Navigator Name Role Phone Nano Back Unavailable Encounter Details Date Type Department Care Team (Late st Contact Info) Description 07/31/2023 Clinisync Result Encounter [facility] External Department Unsolicited Elsi Marrero, DO [address] [place], [place] [id number] Social History Tobacco Use Types Packs/Day Years [...] Routine [facility] BCP OB [address] [place] [phone] Elsi Marrero DO [facility] [place] [address] documented as of this encounter Procedures Procedure Name Priority Date/Time Associated Diagnosis Comments US OB ANATOMY 07/31/2023 12:29 PM EDT documented in this encounter Results * US OB ANATOMY (07/31/2023 12:29 PM EDT) Anatomical Region Laterality Modality Other 07/31/2023 12:2 9 PM EDT Narrative 07/31/2023 12:32 [place] [address] Ultrasound Report Signed Patient: LIA DESAI MR#: [id number] : 2000 Acct:[id number] Age/Sex: 22 / F ADM Date: 07/31/23 Loc: [facility] Attending Dr: Elsi Marrero D.O. Ordering Physician: Elsi Marrero D.O. Date of Service: 07/31/23 Procedure(s): US OB anatomy Accession Number(s): [id number] cc: Elsi Marrero D.O.; Physician,Non-Staff M.D. The [place] [address] Patient Name: LIA DESAI MRN: [id number] date: 2000 Sex: F Assigned Patient [facility] Current Patient Location: [facility] Accession/Order Number: [id number] Exam Date: 07/31/2023 10:47 Report Date: 07/31/2023 [...] Signed By: 07/31/23 1232 DD/ 1229 TD/TT: Security Operations Engineer: Procedure Note Radiology, Radiologist, MD - 07/31/2023 [place] [address] Ultrasound Report Signed Patient: LIA DESAI R#: [id number] : 2000Acct:[id number] Age/Sex: 22 M Date: 07/31/23 Loc: [facility] Attending Dr: Elsi Marrero D.O. Ordering Physician: Elsi Marrero D.O. Date of Service: 07/31/23 Procedure(s): US OB anatomy Accession Number(s): [id number] cc: Elsi Marrero D.O.; Physician,Non-Staff Nena The [place] [id number] Patient Name: LIA DESAI MRN: [facility]:[id number] date: 2000 Sex: F Assigned Patient Location: [facility] Current Patient Location: [facility] Accession/Order Number: [id number] Exam Date: 07/31/2023 10:47 Report Date: 07/31/2023 [...] M.D. Signed By:07/31/23 1232 DD/ 1229 TD/TT: Security Operations Engineer: us Elsi Janes DO [facility] Final Result documented in this encounter Visit Diagnoses Not on filedocumented in this encounter Care Teams Community Health Navigator Relationship Specialty Start Date End Date Nano Back PA [address] [place] [address] [place] [address] PCP - [facility] 01/07/24 documented as of this encounter
--- OUTSIDE RECORDS SUMMARY | 2024-10-27 13:23 | XMS_ITS | Encounter Summary ---
Author Organization [employer] [facility] tem Address [id number] [address] [place] [address] Care Team Providers Care Airfield Defence Guard Name Role Phone Services, [facility] Primary Care Provider Encounter Details Date Type Department Care Team (Late st Contact Info) Description 09/27/2022 Orders Only [facility] [address] [facility] [address] [place] [phone] Charu Forbes APRN-RORY [address] [place] [address] Chlamydia (Primary Dx) Social History Tobacco Use [...] documented as of this encounter Care Teams Airfield Defence Guard Relationship Specialty Start Date End Date Services, [facility] [address] [place], [place] PCP - General Family Medicine 10/15/24 documented as of this encounter
--- OUTSIDE RECORDS SUMMARY | 2024-10-27 13:23 | XMS_ITS | Encounter Summary ---
Author Organization [facility] Address [address] [place] [address] Care Team Providers Care Director Of Casework Name Role Phone [place]ano Unavailable Encounter Details Date Type Department Care Team (Late st Contact Info) Description 08/20/[address] [facility] [address] [facility] [place] [address] Margi Marie LPN [address] [facility] [place] [address] Social History Tobacco Use Types Packs/Day Years [...] Description 11/23/2024 11:20 AM EDT Routine [facility] OB [address] [facility] [place] [address] Robert Marrero DO [address] [facility] [address] [place], [place] [address] documented as of this encounter Visit Diagnoses Not on filedocumented in this encounter Care Teams Director Of Casework Relationship Specialty Start Date End Date Nano Back PA [address] [place] [address] [place] [address] PCP - [facility] 01/07/24 documented as of this encounter
--- OUTSIDE RECORDS SUMMARY | 2024-10-27 13:23 | XMS_ITS | Encounter Summary ---
Author Organization [facility] Address [address] [place] [address] Care Team Providers Care Poultry Pathologist Name Role Phone Nano Back Unavailable Encounter Details Date Type Department Care Team (Late st Contact Info) Description 10/06/2024 Abstract [facility] OB [address] [place] [address] Robert Marrero, DO [address] [place], [facility] Social History Tobacco Use Types Packs/Day [...] PM EST documented as of this encounter Functional Status * Over the past 2 weeks, how often have you been bothered by any of the following problems? Question Answer Date of Assessment Author Little interest or pleasure in doing things Several days 2024 1:32 PM EDT Nano Melendez LPN Feeling down, depressed, or hopeless Several days 2024 1:32 PM EDT Nano Melendez LPN Patient Health Questionnaire -2 Score 2 2024 1:32 PM EDT Nano Melendez LPN * Question Answer Date of Assessment Author Trouble falling or staying asleep, or sleeping too much Not at all 2024 1:32 PM EDT Nano Melendez LPN Feeling tired or having sonia le energy Several days 2024 1:32 PM EDT Nano Melendez LPN Poor appetite or overeating Not at all 2024 1: 32 PM EDT Nano Melendez LPN documented as of this encounter Plan of Treatment Upcoming Encounters Date Type Department Care Team (Late st Contact Info) Description 11/23/2024 11:20 AM EDT Routine [facility] BCP OB [address] [place] [address] Robert Marrero DO [address] [place], [place] [phone] documented as of this encounter Visit Diagnoses Not on filedocumented in this encounter Care Teams Poultry Pathologist Relationship Specialty Start Date End Date Nano Back PA [address] [place], [place] [phone] PCP - [facility] 01/07/24 documented as of this encounter
--- OUTSIDE RECORDS SUMMARY | 2024-10-27 13:23 | XMS_ITS | Encounter Summary ---
Author Organization [facility] Address [address] [place] [address] Care Team Providers Care Senior Property Manager Name Role Phone Nano Back Unavailable Encounter Details Date Type Department Care Team (Late st Contact Info) Description 08/28/2023 Clinisync Result Encounter [facility] External Department Unsolicited Elsi Marrero, DO [address] [place], [place] [address] Social History Tobacco Use Types Packs/Day Years [...] Routine [facility] BCP OB [address] [place] [address] Elsi Marrero DO [facility] [place] [address] documented as of this encounter Procedures Procedure Name Priority Date/Time Associated Diagnosis Comments US OB FOLLOW UP 08/28/2023 10:11 AM EDT documented in this encounter Results * US OB FOLLOW UP (08/28/2023 10:11 AM EDT) Anatomical Region Laterality Modality Radiographic Nafisa ging 08/28/2023 10:1 1 AM EDT Narrative 08/28/2023 10:14 [place] [address] Ultrasound Report Signed Patient: LIA DESAI MR#: [id number] : 2000 Acct:[id number] Age/Sex: 22 / F ADM Date: 08/28/23 Loc: [facility] Attending Dr: Elsi Marrero D.O. Ordering Physician: Elsi Marrero D.O. Date of Service: 08/28/23 Procedure(s): US OB follow up Accession Number(s): [id number] cc: Elsi Marrero D.O.; Physician,Non-Staff M.Corie [address] [address] Patient Name: LIA DESAI MRN: [id number] date: 2000 Sex: F Assigned Patient Location: [facility] Current Patient Location: [facility] Accession/Order Number: [id number] Exam Date: 08/28/2023 08:34 Report Date: 08/28/2023 [...] Markie Kate M.D. Signed By: 08/28/234 DD/ 1011 TD/TT: Roller Helper: Procedure Note Radiology, Radiologist, MD - 08/28/2023 The [place] [id number] Ultrasound Report Signed Patient: LIA DESAI R#: [id number] : 2000Acct:[id number] Age/Sex: 22 FADM Date: 08/28/23 Loc: [facility] Attending Dr: Elsi Marrero D.O. Ordering Physician: Elsi Marrero D.O. Date of Service: 08/28/23 Procedure(s): US OB follow up Accession Number(s): [id number] cc: Elsi Marrero D.O.; Physician,Non-Staff Nena The [place] [phone] Patient Name: LIA DESAI MRN: [id number] date: 2000 Sex: F Assigned Patient Location: [facility] Current Patient Location: [facility] Accession/Order Number: [id number] Exam Date: 08/28/2023 08:34 Report Date: 08/28/2023 [...] 10:11 Dictated By: Markie Kate M.D. Signed By:08/28/23 1014 DD/ 1011 TD/TT: Roller Helper: us Elsi Marrero DO IMG XR PROCEDURES Final Result documented in this encounter Visit Diagnoses Not on filedocumented in this encounter Care Teams Senior Property Manager Relationship Specialty Start Date End Date Nano Back PA [address] [place] [address] [place] [address] PCP - [facility] 01/07/24 documented as of this encounter
--- OUTSIDE RECORDS SUMMARY | 2024-10-27 13:23 | XMS_ITS | Encounter Summary ---
Author Organization [facility] Address [address] [place] [address] Care Team Providers Care Packing Machine Pilot Can Router Name Role Phone Nano Back Unavailable Encounter Details Date Type Department Care Team (Late st Contact Info) Description 09/10/2023 Clinisync Result Encounter [facility] External Department Unsolicited Elsi Marrero, DO [address] [place], [place] [phone] Social History Tobacco Use Types Packs/Day Years [...] Routine [facility] BCP OB [address] [place] [address] Elsi Marrero DO [facility] [place] [address] documented as of this encounter Procedures Procedure Name Priority Date/Time Associated Diagnosis Comments US OB CERVICAL LENGTH 09/10/2023 3:16 PM EDT documented in this encounter Results * US OB CERVICAL LENGTH (09/10/2023 3:16 PM EDT) Anatomical Region Laterality Modality Other 09/10/2023 3:16 PM EDT Narrative 09/10/2023 3:19 [place] [address] Ultrasound Report Signed Patient: LIA DESAI MR#: [id number] : 2000 Acct:[id number] Age/Sex: 22 / F ADM Date: Loc: [facility] [address]: Elsi Marrero D.O. Ordering Physician: Elsi Marrero D.O. Date of Service: 09/10/23 Procedure(s): US OB cervical length Accession Number(s): [id number] cc: Elsi Marrero D.O.; Physician,Non-Staff M.D. [place] [address] Patient Name: LIA DESAI MRN: [id number] date: 2000 Sex: F Assigned Patient Location: [facility] Current Patient Location: [facility] Accession/Order Number: [id number] Exam Date: 09/10/2023 13:54 Report Date: 09/10/2023 [...] Dictated By: Levi Valiente M.D. Signed By: 09/10/231518 DD/ 15 TD/TT: Prints And Drawings Curator: Procedure Note Radiology, Radiologist, MD - 09/10/2023 [place] [address] Ultrasound Report Signed Patient: LIA DESAI R#: [id number] : 2000Acct:[id number] Age/Sex: 22 / FADM Date: Loc: [facility] [address]: Elsi Marrero D.O. Ordering Physician: Elsi Marrero D.O. Date of Service: 09/10/23 Procedure(s): US OB cervical length Accession Number(s): [id number] cc: Elsi Marrero D.O.; Physician,Non-Staff Nena The [place] [address] Patient Name: LIA DESAI MRN: [facility]:[id number] date: 2000 Sex: F Assigned Patient Location: [facility] Current Patient Location: [facility] Accession/Order Number: [id number] Exam Date: 09/10/2023 13:54 Report Date: 09/10/2023 [...] Levi Valiente M.D. Signed By:09/10/23 1519 DD/ TD/TT: Prints And Drawings Curator: us Elsi Janes DO [facility] Final Result documented in this encounter Visit Diagnoses Not on filedocumented in this encounter Care Teams Packing Machine Pilot Can Router Relationship Specialty Start Date End Date Nano Back PA [address] [place] [address] [place] [address] PCP - [facility] 01/07/24 documented as of this encounter
--- OUTSIDE RECORDS SUMMARY | 2024-10-27 13:23 | XMS_ITS | Encounter Summary ---
Author Organization [facility] Address [address] [place] [address] Care Team Providers Care Foundry Superintendant Name Role Phone [place]ano Unavailable Encounter Details Date Type Department Care Team (Late st Contact Info) Description 11/15/2023 Abstract [facility] OB [address] [place] [address] [facility] [place], [facility] Social History Tobacco Use Types Packs/Day Years [...] [facility] BCP OB [address] [place] [address] [facility] [place], [facility] documented as of this encounter Visit Diagnoses Not on filedocumented in this encounter Care Teams Foundry Superintendant Relationship Specialty Start Date End Date Nano Back PA [address] [place] [address] [place] [address] PCP - [facility] 01/07/24 documented as of this encounter
--- OUTSIDE RECORDS SUMMARY | 2024-10-27 13:23 | XMS_ITS | Encounter Summary ---
Author Organization [facility] Address [address] [place] [address] Care Team Providers Care Quality Improvement Engineer Name Role Phone Nano Back Unavailable Encounter Details Date Type Department Care Team (Late st Contact Info) Description 11/25/2023 Clinisync Result Encounter [facility] External Department Unsolicited Elsi Marrero, DO [address] [place], [place] [phone] Social History Tobacco Use Types Packs/Day Years [...] Description 11/23/2024 11:20 AM EDT [facility]ine [facility] OB [address] [place] [phone] Elsi Marrero [address] [place] [address] documented as of this encounter Procedures Procedure Name Priority Date/Time Associated Diagnosis Comments US OB GROWTH 11/25/2023 4:36 PM EDT documented in this encounter Results * US OB GROWTH (11/25/2023 4:36 PM EDT) Anatomical Region Laterality Modality Other 11/25/2023 4:36 PM EDT Narrative 11/25/2023 4:38 [place] [address] Ultrasound Report Signed Patient: LIA DESAI MR#: [id number] : 2000 Acct:[id number] Age/Sex: 23 / F ADM Date: 11/25/23 Loc: [facility] Attending Dr: Elsi Marrero D.O. Ordering Physician: Elsi Marrero D.O. Date of Service: 11/25/23 Procedure(s): US OB growth Accession Number(s): [id number] cc: Elsi Marrero D.O.; Physician,Non-Staff M.Corie [place] [address] Patient Name: LIA DESAI MRN: [id number] date: 2000 Sex: F Assigned Patient Location: [facility] Current Patient Location: [facility] Accession/Order Number: [id number] Exam Date: 11/25/2023 11:30 Report Date: 11/25/2023 [...] growth Electronically authenticated by: MARKIE KATE Date: 11/25/2023 16:36 Dictated By: Markie Kate M.D. Signed By: 11/25/231637 DD/ 35 TD/TT: Digital Marketing Officer: Procedure Note Radiology, Radiologist, MD - 11/25/2023 [place] [address] Ultrasound Report Signed Patient: LIA DESAI LMR#: [id number] : 2000Acct:[id number] Age/Sex: 23 FADM Date: 11/25/23 Loc: [facility] Attending Dr: Elsi Marrero D.O. Ordering Physician: Elsi Marrero D.O. Date of Service: 11/25/23 Procedure(s): US OB growth Accession Number(s): [id number] cc: Elsi Marrero D.O.; Physician,Non-Staff Nena The [place] [phone] Patient Name: LIA DESAI MRN: [facility]:[id number] date: 2000 Sex: F Assigned Patient Location: [facility] Current Patient Location: [facility] Accession/Order Number: [id number] Exam Date: 11/25/2023 11:30 Report Date: 11/25/2023 [...] growth Electronically authenticated by: MARKIE KATE Date: 11/25/2023 16:36 Dictated By: Markie Kate M.D. Signed By:11/25/231637 DD/ 35 TD/TT: Digital Marketing Officer: us Elsi Janes DO [facility] Final Result documented in this encounter Visit Diagnoses Not on filedocumented in this encounter Care Teams Quality Improvement Engineer Relationship Specialty Start Date End Date Nano Back PA [address] [place] [address] [place] [address] [facility] 01/07/24 documented as of this encounter
--- OUTSIDE RECORDS SUMMARY | 2024-10-27 13:24 | XMS_ITS | Encounter Summary ---
Author Organization [facility] Address [address] [place] [address] Care Team Providers Care Retirement Assistant Name Role Phone [place]Nano Unavailable Encounter Details Date Type Department Care Team (Late st Contact Info) Description 10/14/2024 Orders Only [facility] OB [address] [facility] [place] [address] Janna Jansen LPN [address] [facility] [place] [phone] Social History Tobacco Use Types Packs/Day Years [...] Description 11/23/2024 11:20 AM EDT Routine [facility] OB [address] [facility] [place] [address] Robert Marrero DO [address] [place] [address] documented as of this encounter Procedures Procedure Name Priority Date/Time Associated Diagnosis Comments PAP SMEAR Routine 10/05/2024 12:00 AM EDT documented in this encounter Results * Pap Smear (10/05/2024 12:00 AM EDT) Swab Cervical swab / Unknown Robert Marrero DO LAB CYTOLOGY ORDERABLES Final Re sult EXTERNAL LAB documented in this encounter Visit Diagnoses Not on filedocumented in this encounter Care Teams Retirement Assistant Relationship Specialty Start Date End Date Nano Back PA [address] [place] [address] PCP - [facility] 01/07/24 documented as of this encounter
--- OUTSIDE RECORDS SUMMARY | 2024-10-27 13:24 | XMS_ITS | Encounter Summary ---
Author Organization [facility] Address [address] [place] [address] Care Team Providers Care Counter Server Name Role Phone [place]ano Unavailable Encounter Details Date Type Department Care Team (Late st Contact Info) Description 08/21/2024 Abstract [facility] [address] [facility] [place] [address] Zaida Tavares MA Social History Tobacco [...] 11/23/2024 11:20 AM EDT Routine [facility] OB [address] [place] [address] Robert Marrero, DO [address] [place] [address] documented as of this encounter Visit Diagnoses Not on filedocumented in this encounter Care Teams Counter Server Relationship Specialty Start Date End Date Nano Back PA [address] [place] [address] [place] [address] PCP - [facility] 01/07/24 documented as of this encounter
--- OUTSIDE RECORDS SUMMARY | 2024-10-27 13:24 | XMS_ITS | Encounter Summary ---
Author Organization [facility] Address [address] [place] [address] Care Team Providers Care Groundman Name Role Phone [place] SpringsNano Unavailable Encounter Details Date Type Department Care Team (Late st Contact Info) Description 08/25/2024 Abstract [facility] [address] [place] [address] Robert Marrero, [address] [place], [place] [address] Social History Tobacco Use Types Packs/Day Years [...] Description 11/23/2024 11:20 AM EDT Routine [facility] [address] [place] [address] Robert Marrero DO [address] [place] [address] documented as of this encounter Visit Diagnoses Not on filedocumented in this encounter Care Teams Groundman Relationship Specialty Start Date End Date Nano Back PA [address] [place] [address] PCP - [facility] 01/07/24 documented as of this encounter
--- OUTSIDE RECORDS SUMMARY | 2024-10-27 13:24 | XMS_ITS ---
Author Organization [facility] Address [address] [place] [address] Care Team Providers Care Inbound Sales Advisor Name Role Phone Nano Back Unavailable [facility] ([facility]) Status:Enrolled (Active) Start date:08/10/2024 Enrollment date:08/11/2024 Enrollment reason:Identified by Health Plan Case Team Name Relationship Phone Nano Melendez LPN(Responsible Staff) Licensed [facility] Nurse [phone] Continued Care and Services Coordination
--- OUTSIDE RECORDS SUMMARY | 2024-10-27 13:24 | XMS_ITS | Encounter Summary ---
Author Organization [facility] Address [address] [place] [address] Care Team Providers Care Job Lithographer Name Role Phone [place] Unavailable Encounter Details Date Type Department Care Team (Late st Contact Info) Description 05/22/2023 Abstract [facility] [address] [place] [address] Margi Marie LPN [address] [facility] [address] [place] [address] Social History Tobacco Use Types Packs/Day Years [...] Routine [facility] [address] [address] Robert Marrero DO [address] [facility] [address] [place], [place] [id number] documented as of this encounter Visit Diagnoses Not on filedocumented in this encounter Care Teams Job Lithographer Relationship Specialty Start Date End Date Nano Back PA [address] [place] [address] [place] [address] PCP - [facility] 01/07/24 documented as of this encounter
--- OUTSIDE RECORDS SUMMARY | 2024-10-27 13:24 | XMS_ITS | Encounter Summary ---
Author Organization [facility] Address [address] [place] [address] Care Team Providers Care Director Corporate Compliance Name Role Phone Nano Back Unavailable Encounter Details Date Type Department Care Team (Late st Contact Info) Description 05/02/2023 Clinisync Result Encounter [facility] External Department Unsolicited Elsi Marrero [facility] [place], [place] [id number] Social History Tobacco Use Types Packs/Day Years [...] [facility] [address] [place] [id number] Elsi Marrero DO [facility] [place] [address] documented as of this encounter Procedures Procedure Name Priority Date/Time Associated Diagnosis Comments US OB TRANSVAGINAL 05/02/2023 1: 36 PM EST documented in this encounter Results * US OB TRANSVAGINAL (05/02/2023 1:36 PM EST) Anatomical Region Laterality Modality Other 05/02/2023 1:36 PM EST Narrative 05/02/2023 1:39 [place] [address] Ultrasound Report Signed Patient: Lia Desai MR#: [id number] : 2000 Acct:[id number] Age/Sex: 22 / F ADM Date: 05/02/23 Loc: [facility] Attending Dr: Elsi Marrero D.O. Ordering Physician: Elsi Marrero D.O. Date of Service: 05/02/23 Procedure(s): US OB transvaginal Accession Number(s): [id number] cc: Elsi Marrero D.O.; Physician,Non-Staff M.DM[place]abel [place] [address] Patient Name: LIA DESAI MRN: [id number] date: 2000 Sex: F Assigned Patient Location: [facility] Current Patient Location: [facility] Accession/Order Number: [id number] Exam Date: 05/02/2023 12:36 Report Date: 05/02/2023 [...] 8 weeks 1 day Electronically authenticated by: MARKIE KATE Date: 05/02/2023 13:36 Dictated By: Markie Kate M.D. Signed By: 05/02/23 1339 DD/ 1336 TD/TT: Process Engineering Manager: Procedure Note Radiology, Radiologist, - 05/02/2023 [place] [address] Ultrasound Report Signed Patient: Lia Desai LMR#: [id number] : 2000Acct:[id number] Age/Sex: 22 / FADM Date: 05/02/23 Loc: [facility] Attending Dr: Elsi Marrero D.O. Ordering Physician: Elsi Marrero D.O. Date of Service: 05/02/23 Procedure(s): US OB transvaginal Accession Number(s): [id number] cc: Elsi Marrero D.O.; Physician,Non-Staff [place] [id number] Patient Name: LIA DESAI MRN: [id number] date: 2000 Sex: F Assigned Patient Location: [facility] Current Patient Location: [facility] Accession/Order Number: [id number] Exam Date: 05/02/2023 12:36 Report Date: 05/02/2023 [...] 8 weeks 1 day Electronically authenticated by: MARKIE KATE Date: 05/02/2023 13:36 Dictated By: Markie Kate M.D. Signed By:05/02/23 1339 DD/ 1336 TD/TT: Process Engineering Manager: us Elsi Janes DO [facility] Final Result documented in this encounter Visit Diagnoses Not on filedocumented in this encounter Care Teams Director Corporate Compliance Relationship Specialty Start Date End Date Nano Back PA [address] [place] [address] Dr [address]m[place] [id number] PCP - [facility] 01/07/24 documented as of this encounter
--- OUTSIDE RECORDS SUMMARY | 2024-10-27 13:24 | XMS_ITS | Clinical Summary ---
Author Organization [facility] Address [address] [place] [address] Care Team Providers Care Taxi Proprietor Name Role Phone Nano Back Unavailable Allergies Active Allergy Reactions Criticality Noted Date Comments Azithromycin 04/23/2023 Macrolides And Ketolides Unknown 04/30/2023 Metronidazole GI intolerance 07/09/2023 Other Reaction(s): Vomiting Wound Dressing Adhesive Low 05/02/2023 Medications 27-1 MG tablet Take 1 tablet by mouth Daily 03/13/2022 Active metoclopramide (Reglan) 10 MG tabletIndicatio ns:Nausea and vomiting in ([facility]) Take 1 tablet (10 mg) by mouth in the morning and 1 tablet (10 mg) at noon and 1 tablet (10 mg) in the evening. Take before meals. Take 1 tablet by mouth 30 minutes prior to meals 3 times daily as needed for nausea. 90 tablet 09/08/2024 Active metroNIDAZOLE (Metrogel) 0.75 % vaginal gelIndications: BV (bacterial vaginosis) Insert into the vagina Daily for 5 days 70 g 10/06/2024 10/12/19 Active Problems Problem Noted Date Diagnosed Date 38 weeks gestation of ([facility]) 2023 Estimated Date of Delivery Comme nts Yes 03/14/2025 Based on Ultraso und Encounters Date Type Department Care Team Description 10/26/2024 1:20 PM EDT Routine [facility] OB [address] [place] [address] Nano Back PA 20 weeks gestation of ([facility]); Second trimester ([facility]) 10/26/2024 11:00 AM EDT Ancillary Procedure [facility] [address] [place] [address] Screening, , for anatomic survey ([facility]) 10/14/2024 Telephone [facility] [address] [place] [address] Zaida Tavares MA 10/14/2024 Orders Only [facility] [address] [place] [address] Janna Jansen, FEDE 2024 Abstract [facility] [address] [place] [address] Catrina Samuels NP 2024 Patient Outreach [facility] [address] [address] Nano Melendez, FEDE 10/06/20[address] Telephone [facility] [address] [place] [address] Robert Marrero DO 10/06/2024 Abstract [facility] [address] [place] [address] Robert Marrero DO 10/05/2024 11:10 AM EDT Routine [facility] [address] [place] [address] Robert Marrero, Second trimester ([facility]); 17 weeks gestation of ([facility]); Well woman exam with routine gynecological exam; Exposure to STD; Need for maternal serum alpha-protein (MSAFP) screening ([facility]); Screening, , for anatomic survey ([facility]); SOB (shortness of breath); Dizziness 10/05/2024 Clinisync Result Encounter [facility] External Department Unsolicited Robert Marrero, DO 10/05/2024 External Result Encounter NOMS External Department Unsolicited Robert Marrero, DO 10/05/2024 Bamboo flowsheet [facility] [address] [place] [address] Robert Marrero, DO 09/23/2024 Abstract [facility] [address] [place] [address] Robert Marrero, DO 09/21/2024 Abstract [facility] [address] [place] [address] Robert Marrero, DO 09/18/[address] [facility] [address] [place] [address] Shantell Ambrose, LINEN MANAGER 09/10/2024 Patient Outreach [facility] [address] [place] [address] Nano Melendez, LINEN MANAGER 09/08/[address] [facility] [address] [place] [address] Margi Marie, [facility] Constipation, unspecified constipation type; Nausea and vomiting in ([facility]) 09/07/2024 10:50 AM EDT Routine [facility] [address] [place] [address] Robert Marrero, DO Constipation, unspecified constipation type (Primary Dx); First trimester ([facility]); 13 weeks gestation of ([facility]); Nausea and vomiting in ([facility]) 09/07/2024 Clinisync Result Encounter NOMS External Department Unsolicited Robert Marrero, DO 09/07/2024 Bamboo flowsheet [facility] [address] [place] [address] Robert Marrero, DO 08/25/2024 Abstract [facility] [address] [place] [address] Robert Marrero, 08/25/2024 Abstract [facility] [address] [place] [address] Robert Marrero, 08/21/2024 Abstract [facility] [address] [place] [address] Zaida Tavares [place] 08/21/2024 Abstract [facility] [address] [place] [address] Zaida Tavares HI 08/21/2024 Abstract [facility] [address] [place] [address] Zaida Tavares, [place] 08/18/2024 Clinisync Result Encounter NOMS External Department Unsolicited Robert Marrero, 08/11/2024 Patient Outreach [facility] [address] [place] [address] Nano Melendez LPN 08/10/20[address] Tele[address] [facility] [address] [place] [address] Robert Marrero, 08/06/2024 1:30 PM EDT Initial [facility] [address] [place] [address] GA: [id number] 08/06/2024 1:00 PM EDT Ancillary Procedure [facility] [address] [place] [address] Missed menses from Last 3 Months Family History Medical [...] oz) 10/26/2024 1:28 P M EDT Height 167.6 cm (5' 6 ) 08/08/2022 12:00 PM EDT Body Mass Index 41.29 08/08/2022 12:00 PM EDT Plan of Treatment Upcoming Encounters Date Type Department Care Team (Late st Contact Info) Description 11/23/2024 11:20 AM EDT Routine [facility] OB [address] [place] [address] Robert Marrero, DO [address] [place] [address] Dr [place], [place] [id number] Health Maintenance Due Date Last Done Comments Influenza Vaccine (#1) 2024 Procedures Procedure Name Priority Date/Time Associated Diagnosis Comments POCT URINALYSIS DIPSTICK Routine 10/26/2024 1:36 PM EDT 20 weeks gestation of ([facility]) Second trimester ([facility]) US OB 14+ WEEKS ANATOMY SCAN Routine 10/26/2024 12:08 PM EDT Screening, , for anatomic survey ([facility]) RECURRENT VAGINITIS (HTRX) Routine 10/05/2024 3:48 PM EDT POCT URINALYSIS DIPSTICK Routine 10/05/2024 11:44 AM EDT Second trimester ([facility]) IGP,APTIMA HPV,AGE GDLN Routine 10/05/2024 11:17 AM EDT PAP SMEAR Routine 10/05/2024 12:00 AM EDT CULTURE, URINE, ROUTINE Routine 09/07/2024 2:34 PM EDT Missed menses HCV ANTIBODY RFX TO QUANT PCR Routine 09/07/2024 12:25 PM EDT ALL RUBELLA IGG AB Routine 09/07/2024 12 :25 PM EDT POCT URINALYSIS DIPSTICK Routine 09/07/2024 11:19 AM EDT First trimester ([facility]) HBSAG SCREEN Routine 08/18/2024 4:40 PM EDT [...] menses from Last 3 Months Results * POCT urinalysis dipstick manually resulted (10/26/2024 1:36 PM EDT) Only the most recent of4 resultswithin the time period is included. Color, [...] - Positive Urine 10/26/2024 1:36 PM EDT us Nano MILLS POINT OF CARE TEST ENTER/EDIT OR DERABLES Final Result * US OB 14+ weeks anatomy scan [...] recommended. Interpreted by: Electronically signed by LORENA COLMENARES II, MD, PHD at 27-Oct-2024 07:25:37 AM [facility] Procedure Note Lorena Colmenares MD - 10/27/2024 EXAM: US OB 14+ [...] of the three-vessel cord and nose/lips. A kbrbc-tyeplfpyms-xq ultrasound is recommended. Interpreted by: Electronically signed by LORENA COLMENARES II, MD, PHD 07:25:37 AM [facility] us Robert Marrero DO IM OB US PROCEDURES Final Resul t * (ABNORMAL) RECURRENT VAGINITIS (HTRX) (10/05/2024 3:48 PM EDT) ATOPOBIUM VAGINAE 0 19.961 - 24.689 ppm 10/06/2024 6:39 AM EDT [facility] ATOPOBIUM VAGINAE Not Detected 19.961 - 24.689 ppm 10/06/2024 6:39 AM EDT [facility] BVAB 2,3 (BACTERIAL VAGINOSIS ASSOCIATED BACTERIA 2, 3); MOBILUNCUS SPP 0 19.961 - 24.689 ppm 10/06/2024 6:39 AM EDT [facility] BVAB 2,3 (BACTERIAL VAGINOSIS ASSOCIATED BACTERIA 2, 3); MOBILUNCUS SPP Not Detected 19.961 - 24.689 ppm 10/06/2024 6:39 AM EDT [facility] YANG ALBICANS, PARAPSILOSIS, TROPICALIS 0 19.961 - 30.770 ppm 10/06/2024 6:39 AM EDT [facility] YANG ALBICANS, PARAPSILOSIS, TROPICALIS Not Detected 19.961 - 30.770 ppm 10/06/2024 6:39 AM EDT [facility] YANG GLABRATA 0 23.000 - 32.138 ppm 10/06/2024 6:39 AM EDT [facility] YANG GLABRATA Not Detected 23.000 - 32.138 ppm 10/06/2024 6:39 AM EDT [facility] YANG KRUSEI 0 23.000 - 32.271 ppm 10/06/2024 6:39 AM EDT [facility] YANG KRUSEI Not Detected 23.000 - 32.271 ppm 10/06/2024 6:39 AM EDT [facility] CHLAMYDIA TRACHOMATIS 0 23.000 - 31.467 ppm 10/06/2024 6:39 AM EDT [facility] CHLAMYDIA TRACHOMATIS Not Detected 23.000 - 31.467 ppm 10/06/2024 6:39 AM EDT [facility] GARDNERELLA VAGINALIS 29.457(A) 19.961 - 24.689 ppm 10/06/2024 6:39 AM EDT [facility] GARDNERELLA VAGINALIS Detected(A) 19.961 - 24.689 ppm 10/06/2024 6:39 AM EDT [facility] MEGASPHAERA (TYPES 1, 2) 0 19.961 - 24.689 ppm 10/06/2024 6:39 AM EDT [facility] MEGASPHAERA (TYPES 1, 2) Not Detected 19.961 - 24.689 ppm 10/06/2024 6:39 AM EDT [facility] NEISSERIA GONORRHOEAE 0 23.000 - 32.117 ppm 10/06/2024 6:39 AM EDT [facility] NEISSERIA GONORRHOEAE Not Detected 23.000 - 32.117 ppm 10/06/2024 6:39 AM EDT [facility] TRICHOMONAS VAGINALIS 0 23.000 - 32.119 ppm 10/06/2024 6:39 AM EDT [facility] TRICHOMONAS VAGINALIS Not Detected 23.000 - 32.119 ppm 10/06/2024 6:39 AM EDT [facility] MYCOPLASMA GENITALIUM 0 19.961 - 24.689 ppm 10/06/2024 6:39 AM EDT [facility] MYCOPLASMA GENITALIUM Not Detected 19.961 - 24.689 ppm 10/06/2024 6:39 AM EDT [facility] ERMB C; MEFA 25.809(A) 23.000 - 27.611 ppm 10/06/2024 6:39 AM EDT [facility] ERMB, C; MEFA Detected(A) 23.000 - 27.611 ppm 10/06/2024 6:39 AM EDT [facility] TET B, TET M 26.802(A) 23.000 - 27.778 ppm 10/06/2024 6:39 AM EDT [facility] TET B, TET M Detected(A) 23.000 - 27.778 ppm 10/06/2024 6:39 AM EDT [facility] Tissue 10/05/2024 3:48 PM EDT 10/06/2024 2:45 AM EDT us Robert Marrero DO LAB BLOOD ORDERABLES Final Resul t [facility] [address] [place] [address] * IGP,APTIMA HPV,AGE GDLN (10/05/2024 11:17 AM EDT) AGE GDLN ACOG TESTING Note . TB Comment: TESTS RESULT FLAG UNITS REF RANGE LAB Clinician Provided Cytology Information Source.............Cervix No. of containers..01 ThinPrep Vial Age Jerica MAN Marielos... FLAG LEGEND: L-Low Normal,H-High Normal,LL-Alert Low,HH-Alert High <-Panic Low,>-Panic High,A-Abnormal,AA-Critical Abnormal Performed at: 01 =G [address] [address] Kylee Rivera MD, IGP, RFX APTIMA HPV ASCU Note . [facility] Comment: TESTS RESULT FLAG UNITS REF RANGE LAB DIAGNOSIS: 02 NEGATIVE FOR INTRAEPITHELIAL LESION OR MALIGNANCY. Specimen adequacy: 02 Satisfactory for evaluation. Endocervical and/or squamous metaplastic cells (endocervical component) are present. Performed by: Carri Lennon, Case Packer And Sealer ([facility]) . 02 Note: Note 03 The Pap smear is a screening test designed to aid in the detection of premalignant and malignant conditions of the uterine cervix. It is not a diagnostic procedure and should not be used as the sole means of detecting cervical cancer. Both false-positive and false-negative reports do occur. Test Methodology: Note 03 This liquid based ThinPrep(R) pap test was screened with the use of an image guided system. . 02 The HPV DNA reflex criteria were not met with this specimen result therefore, no HPV testing was performed. FLAG LEGEND: L-Low Normal,H-High Normal,LL-Alert Low,HH-Alert High <-Panic Low,>-Panic High,A-Abnormal,AA-Critical Abnormal Performed at: 02 [facility] [address] [place] [address] Med Campbell MD, 03 WB [facility] [address] [address] Kylee Rivera MD, Performed at: =G - [facility] [address] [id number] Exchange Operator: Kylee Rivera MD, Phone: [phone] Performed at: [facility] [address] [place], [place] [id number] Exchange Operator: Med Campbell MD, Phone: [phone] 10/05/2024 11:1 7 AM EDT 10/06/2024 6:59 AM EDT Narrative NEFTALIISYNC - 10/12/2024 7:08 PM EDT SPATULA-ALONE CERVIX us Robert Marrero DO LAB BLOOD ORDERABLES Final Resul t [facility] * Pap Smear (10/05/2024 12:00 AM EDT) Swab Cervical swab / Unknown Result [facility] Robert Janes DO LAB CYTOLOGY ORDERABLES Final Re sult Performing Organization Address City/[facility]/ZIP Co de Phone Number EXTERNAL LAB * Urine culture (09/07/2024 2:34 PM EDT) Urine Urine specimen obtained by clean catch procedure / [facility] - GENERAL ORDER BRAD Final Result Performing Organization Address City/[facility] Co de Phone Number EXTERNAL LAB * HCV ANTIBODY RFX TO QUANT PCR (09/07/2024 12:25 PM EDT) Pathologist [facility] HCV AB Non Reactive Non Reactive [facility] INTERPRETATION: Comment . [facility] Comment: Not infected with HCV unless early or acute infection is suspected (which may be delayed in an immunocompromised individual), or other evidence exists to indicate HCV infection. 09/07/2024 12:2 5 PM EDT 09/07/2024 12:31 PM EDT Narrative CLINISYNC - 09/08/2024 5:09 AM EDT Result [facility] BLOOD ORDERABLES Final Resul t Performing Organization Address [facility] de Phone Number [facility] * ALL RUBELLA IGG AB (09/07/2024 12:25 PM EDT) Pathologist [facility] RUBELLA ANTIBODIES, IGG 1.46 Immune >0.99 index [facility] Comment: Non-immune <0.90 Equivocal 0.90 - 0.99 Immune >0.99 Performed at: [facility] [address] [id number] Exchange Operator: Yvan Bolton PhD, Phone: [phone] 09/07/2024 12:2 5 PM EDT 09/07/2024 12:31 PM EDT Narrative CLINISYNC - 09/08/2024 5:09 AM EDT us Robert Janes DO CLINISYNC Final Result Performing Organization Address [facility]/ZIP Co de Phone Number [facility] * BOX TEST (08/18/2024 4:40 PM EDT) [facility] BOX TEST SENT OUT UNITY BOX [facility] BOX1 [facility] BOX2 08/18/24 [facility] 08/18/2024 4:40 PM EDT 08/18/2024 5:01 PM EDT Narrative CLINISYNC - 08/18/2024 6:09 PM EDT [place] us Robert Janes DO LAB BLOOD ORDERABLES Final Resul t Performing Organization Address [facility] Co de Phone Number [facility] * HBSAG SCREEN (08/18/2024 4:40 PM EDT) [facility] HBSAG SCREEN Negative Negative [facility] Comment: Performed at: [address] [id number] Exchange Operator: Yvan Bolton PhD, Phone: [phone] 08/18/2024 4:40 PM EDT 08/18/2024 5:10 PM EDT Narrative CLINISYNC - 08/20/2024 12:12 PM EDT us Robert Janes DO LAB BLOOD ORDERABLES Final Resul t Performing Organization Address [facility] Co de Phone Number [facility] * RAPID PLASMA REAGIN, QUANT (08/18/2024 4:40 PM EDT) [facility] RAPID PLASMA REAGIN, QUANT Non Reactive NonRea<1: 1 titer [facility] Comment: Please Note: This test does not meet current guidelines for screening and diagnosis of syphilis. This test is intended for following treatment response in patients being treated for syphilis infection. To screen for syphilis infection, a reflex cascade that includes both RPR and a treponema-specific assay should be utilized, such as Treponema pallidum (Syphilis) Screening [place] (214290) or Rapid Plasma Reagin (RPR) Test With Reflex to Quantitative RPR and Confirmatory Treponema pallidum Antibodies ([id number]). Performed at: [address] [id number] Exchange Operator: Yvan Bolton PhD, Phone: [phone] 08/18/2024 4:40 PM EDT 08/18/2024 5:10 PM EDT Narrative CLINISYNC - 08/20/2024 12:12 PM EDT Robert Janes DO LAB BLOOD ORDERABLES Final Resul t Performing Organization Address [facility] Co de Phone Number [facility] * HIV AB/P24 AG WITH REFLEX (08/18/2024 4:40 PM EDT) Pathologist [facility] HIV AB/P24 AG SCREEN Non Reactive Non Reactive [facility] Comment: HIV-1/HIV-2 antibodies and HIV-1 p24 antigen were NOT detected. There is no laboratory evidence of HIV infection. HIV Negative Performed at: [address] [id number] Exchange Operator: Yvan Bolton PhD, Phone: [phone] 08/18/2024 4:40 PM EDT 08/18/2024 5:10 PM EDT Narrative CLINISYNC - 08/20/2024 6:07 AM EDT Appfricao DO LAB BLOOD ORDERABLES Final Resul t Performing Organization Address [facility] Co de Phone Number [facility] * MLR HEMOGLOBIN A1C (08/18/2024 4:40 PM EDT) Pathologist [facility] GLYCOHEMOGLOBIN A1C 5.5 4.5 - 6.2 % [facility] Comment: ADA RECOMMENDED LIMIT 4.0 - 6.0 ADA THERAPEUTIC TARGET < 7.0 ACTION SUGGESTED > 7.0 ESTIMATED AVERAGE GLUCOSE 111 mg/dL TB 08/18/2024 4:40 PM EDT 08/18/2024 5:01 PM EDT Narrative CLINISYNC - 08/18/2024 6:52 PM EDT us Robert Janes DO CLINISYNC Final Result [facility] * ALL TYPE AND SCREEN (08/18/2024 4:40 PM EDT) [facility] BLOOD TYPE A Positive [facility]H ANTIBODY SCREEN NEGATIVE [facility] 08/18/2024 4:40 PM EDT 08/18/2024 5:01 PM EDT Narrative CLINISYNC - 08/18/2024 6:18 PM EDT [facility] , Robert Janes DO CLINISYNC Final Result CLINISYNC TB * (ABNORMAL) ALL CBC WITH AUTO DIFF (08/18/2024 4:40 PM EDT) [facility] WBC 11.4(H) 4.0 - 11.0 10 3/uL TBH TB RBC 4.58 4.20 - 5.40 10 6/uL TBH TBH HGB 12.6 12.0 - 16.0 g/dL TB TB HCT 38.6 36.0 - 48.0 % TBH TB MCV 84.3 81.0 - 99.0 fL TB TB MCH 27.5 26.7 - 34.0 pg TBH TB MCHC 32.6 29.9 - 35.2 g/dL TB [...] EDT Robert Janes DO CLINISYNC Final Result [facility]IS[facility]NC [facility] * TBH DRUG SCREEN RAPID (URINE) (08/18/2024 3:30 PM EDT) Pathologist [facility] CANNABINOID SCREEN URINE NEGATIVE NEGATIVE TBH PHENCYCLIDINE [...] Robert Janes DO CLINISYNC Final Result [facility] * (ABNORMAL) POCT , urine manually [...] report is generated using voice recognition reporting (liveBooks). On occasion Incontcribe erroneously drops words from the report or replaces the spoken word with similar sounding words. Please call with any questions/concerns regarding this report.* Dictated and transcribed 08/06/24dp This report has been electronically signed and [...] report is generated using voice recognition reporting (liveBooks).On occasion Incontcribe erroneously drops words from the report orreplaces the spoken word with similar sounding words. Please call with anyquestions/concerns regarding this report.* Dictated and transcribed 08/06/24/gerry This report has been electronically signed and approved by theinterpreting radiologist. us Robert Marrero DO IMG OB US PROCEDURES Final Resul t from Last 3 Months Insurance [employer] Care Teams Taxi Proprietor Relationship Specialty Start Date End Date Nano Back PA [address] [place] [address] [place] [address] [facility] 01/07/24
--- OUTSIDE RECORDS SUMMARY | 2024-10-27 13:24 | XMS_ITS | Encounter Summary ---
Author Organization [facility] Address [address] [place] [address] Care Team Providers Care Airport Skilled Maintenance Supervisor Name Role Phone [place]otoNano Unavailable Encounter Details Date Type Department Care Team (Late st Contact Info) Description 09/23/2024 Abstract [facility] [address] [place] [address] Robert Marrero, [address] [place], [place] [address] Social History Tobacco Use Types Packs/Day Years [...] Description 11/23/2024 11:20 AM EDT Routine [facility] [address] [place] [address] Robert Marrero DO [address] [place] [address] documented as of this encounter Visit Diagnoses Not on filedocumented in this encounter Care Teams Airport Skilled Maintenance Supervisor Relationship Specialty Start Date End Date Nano Back PA [address] [place] [address] PCP - [facility] 01/07/24 documented as of this encounter
--- OUTSIDE RECORDS SUMMARY | 2024-10-27 13:24 | XMS_ITS | Encounter Summary ---
Author Organization [facility] Address [address] [place] [address] Care Team Providers Care Clinical Rn Liaison Name Role Phone [place] Unavailable Encounter Details Date Type Department Care Team (Late st Contact Info) Description 09/21/2024 Abstract [facility] [address] [place] [address] Robert Marrero, [address] [place], [place] [address] Social History Tobacco Use Types Packs/Day Years [...] Description 11/23/2024 11:20 AM EDT Routine [facility] [address] [place] [address] Robert Marrero DO [address] [place] [address] documented as of this encounter Visit Diagnoses Not on filedocumented in this encounter Care Teams Clinical Rn Liaison Relationship Specialty Start Date End Date Nano Back PA [address] [place] [address] PCP - [facility] 01/07/24 documented as of this encounter
--- OUTSIDE RECORDS SUMMARY | 2024-10-27 13:24 | XMS_ITS | Encounter Summary ---
Author Organization [facility] Address [address] [place] [address] Care Team Providers Care Blend Plant Operator Name Role Phone Nano Back Unavailable Encounter Details Date Type Department Care Team (Late st Contact Info) Description 2024 Abstract [facility] BCP OB [address] [address] Catrina Samuels, ADVICE NURSE [address] [place] [address] Social History Tobacco Use Types Packs/Day Years [...] AM EDT Routine [facility] OB [address] [facility] [place] [address] Robert Marrero DO [address] [place] [address] documented as of this encounter Visit Diagnoses Not on filedocumented in this encounter Care Teams Blend Plant Operator Relationship Specialty Start Date End Date Nano Back PA [address] [place], [place] [id number] PCP - [facility] 01/07/24 documented as of this encounter
--- OUTSIDE RECORDS SUMMARY | 2024-10-27 13:24 | XMS_ITS | Encounter Summary ---
Author Organization [facility] Address [address] [place] [address] Care Team Providers Care Hvac Project Manager Name Role Phone [place] Unavailable Encounter Details Date Type Department Care Team (Late st Contact Info) Description 08/21/2024 Abstract [facility] [address] [place] [address] Zaida Tavares MA Social History Tobacco [...] Description 11/23/2024 11:20 AM EDT Routine [facility] OB [address] [place] [address] Robert Marrero, DO [address] [place] [address] documented as of this encounter Visit Diagnoses Not on filedocumented in this encounter Care Teams Hvac Project Manager Relationship Specialty Start Date End Date Nano Back PA [address] [place] [address] [place] [address] PCP - [facility] 01/07/24 documented as of this encounter
--- OUTSIDE RECORDS SUMMARY | 2024-10-27 13:24 | XMS_ITS | Encounter Summary ---
Author Organization [facility] Address [address] [place] [address] Care Team Providers Care Electrical Designer Name Role Phone SwanvilleNano Unavailable Encounter Details Date Type Department Care Team (Late st Contact Info) Description 05/25/2023 Abstract [facility] [address] [place] [address] Robert Marrero, DO [facility] [address] [place], [place] [address] Social History Tobacco Use Types Packs/Day Years [...] Description 11/23/2024 11:20 AM EDT Routine [facility] [address] [place] [address] Robert Marrero, DO [address], [facility]11 documented as of this encounter Visit Diagnoses Not on filedocumented in this encounter Care Teams Electrical Designer Relationship Specialty Start Date End Date Nano Back PA [address] [place] [address] [place] [address] PCP - [facility] 01/07/24 documented as of this encounter
--- OUTSIDE RECORDS SUMMARY | 2024-10-27 13:24 | XMS_ITS | Encounter Summary ---
Author Organization [facility] Address [address] [place] [address] Care Team Providers Care Senior Internal Auditor Name Role Phone LeslieNano Unavailable Encounter Details Date Type Department Care Team (Late st Contact Info) Description 08/25/2024 Abstract [facility] [address] [place] [address] Robert Marrero, [address] [place], [place] [address] Social History Tobacco Use Types Packs/Day Years [...] Description 11/23/2024 11:20 AM EDT Routine [facility] [address] [place] [address] Robert Marrero DO [address] [place] [address] documented as of this encounter Visit Diagnoses Not on filedocumented in this encounter Care Teams Senior Internal Auditor Relationship Specialty Start Date End Date Nano Back PA [address] [place] [address] PCP - [facility] 01/07/24 documented as of this encounter
--- OUTSIDE RECORDS SUMMARY | 2024-10-27 13:24 | XMS_ITS | Encounter Summary ---
Author Organization [facility] Address [address] [place] [address] Care Team Providers Care Vascular Physician Name Role Phone EssexNano Unavailable Encounter Details Date Type Department Care Team (Late st Contact Info) Description 05/15/2023 Abstract [facility] [address] [place] [address] Robert Marrero, DO [facility] [address], [place] [address] Social History Tobacco Use Types Packs/Day Years [...] [facility] [address] [place] [address] Robert Marrero, DO [address], [facility]11 documented as of this encounter Visit Diagnoses Not on filedocumented in this encounter Care Teams Vascular Physician Relationship Specialty Start Date End Date Nano Back PA [address] [place] [address] [place] [address] PCP - [facility] 01/07/24 documented as of this encounter
--- OUTSIDE RECORDS SUMMARY | 2024-10-27 13:24 | XMS_ITS | Encounter Summary ---
Author Organization [facility] Address [address] [place] [address] Care Team Providers Care Forest Engineer Name Role Phone ChesterfieldNano Unavailable Encounter Details Date Type Department Care Team (Late st Contact Info) Description 08/21/2024 Abstract [facility] [address] [facility] [place] [address] Zaida Tavares [place] Social History Tobacco [...] Routine [facility] [address] [place] [address] Robert Marrero, DO [address] [place] [address] documented as of this encounter Visit Diagnoses Not on filedocumented in this encounter Care Teams Forest Engineer Relationship Specialty Start Date End Date Nano Back PA [address] [place] [address] [place] [address] PCP - [facility] 01/07/24 documented as of this encounter
--- OUTSIDE RECORDS SUMMARY | 2024-10-27 13:24 | XMS_ITS | Encounter Summary ---
Author Organization [facility] Address [address] [place] [address] Care Team Providers Care Setter Up Name Role Phone DrummondNano Unavailable Encounter Details Date Type Department Care Team (Late st Contact Info) Description 01/03/2024 Abstract [facility] [address] [place] [address] Robert Marrero [facility] [address] [place], [facility]11 Social History Tobacco Use Types Packs/Day [...] Routine [facility] [address] [place] [address] Robert Marrero [facility] [address] [place], [facility]11 documented as of this encounter Visit Diagnoses Not on filedocumented in this encounter Care Teams Setter Up Relationship Specialty Start Date End Date Nano Back PA [address] [place] [address] [place] [address] PCP - [facility] 01/07/24 documented as of this encounter
--- OUTSIDE RECORDS SUMMARY | 2024-10-27 13:24 | XMS_ITS | Encounter Summary ---
Author Organization [facility] Address [address] [place] [address] Care Team Providers Care Senior Mechanical Development Engineer Name Role Phone PinettaNano Unavailable Encounter Details Date Type Department Care Team (Late st Contact Info) Description 05/15/2023 Abstract [facility] [address] [place] [address] Robert Marrero, DO [facility] [address], [place] [address] Social History Tobacco Use Types Packs/Day Years [...] Description 11/23/2024 11:20 AM EDT Routine [facility] [address] [place] [address] Robert Marrero, DO [address], [facility]11 documented as of this encounter Visit Diagnoses Not on filedocumented in this encounter Care Teams Senior Mechanical Development Engineer Relationship Specialty Start Date End Date Nano Back PA [address] [place] [address] [place] [address] PCP - [facility] 01/07/24 documented as of this encounter
--- OUTSIDE RECORDS SUMMARY | 2024-10-27 13:24 | XMS_ITS | Encounter Summary ---
Author Organization [facility] Address [address] [place] [address] Care Team Providers Care Switch Technician Name Role Phone BrookhavenNano Unavailable Encounter Details Date Type Department Care Team (Late st Contact Info) Description 06/18/2023 Abstract [facility] [address] [facility] [place] [place] [address] Margi Marie LPN [address] [facility] Jorge [place] [address] Social History Tobacco Use Types Packs/Day Years [...] [facility] [address] [facility] [place] [place] [address] Robert Marrero DO [address] [facility] [address] [place], [place] [id number] documented as of this encounter Visit Diagnoses Not on filedocumented in this encounter Care Teams Switch Technician Relationship Specialty Start Date End Date Nano Back PA [address] [place] [address] [place] [address] PCP - [facility] 01/07/24 documented as of this encounter
--- OUTSIDE RECORDS SUMMARY | 2024-10-27 13:24 | XMS_ITS | Encounter Summary ---
Author Organization [facility] Address [address] [place] [address] Care Team Providers Care Building Operator Name Role Phone Nano Back Unavailable Encounter Details Date Type Department Care Team (Late st Contact Info) Description 05/07/2023 Abstract [facility] [address] [facility] [place] [address] Robert Marrero DO [facility] [place] [address] Social History Tobacco Use Types Packs/Day Years [...] Description 11/23/2024 11:20 AM EDT Routine [facility] [address] [facility] [place] [address] Robert Marrero DO [facility] [place] [id number] documented as of this encounter Visit Diagnoses Not on filedocumented in this encounter Care Teams Building Operator Relationship Specialty Start Date End Date Nano Back PA [address] [place] [address] [place] [id number] PCP - [facility] 01/07/24 documented as of this encounter
--- OUTSIDE RECORDS SUMMARY | 2024-10-27 13:24 | XMS_ITS | Encounter Summary ---
Author Organization [facility] Address [address] [place] [address] Care Team Providers Care Crop Duster Name Role Phone Nano Back Unavailable Encounter Details Date Type Department Care Team (Late st Contact Info) Description 10/14/2024 Telephone [facility] OB [address] [place] [address] [place] [address] Zaida Tavares MA [...] encounter Miscellaneous Notes * Telephone Encounter - Zaida Tavares MA - 10/14/2024 9:17 AM EDT Pt called stating [facility] cannot get her in for 2wks regarding her echo and ECG. Pt requests we fax orders to [facility] so she can check if they have any earlier appts. Orders faxed documented in this encounter Plan of Treatment Upcoming Encounters Date Type Department Care Team (Late st Contact Info) Description 11/23/2024 11:20 AM EDT Routine [facility] [address] [place] [address] Robert Marrero DO [address] [place], [place] [id number] documented as of this encounter Visit Diagnoses Not on filedocumented in this encounter Care Teams Crop Duster Relationship Specialty Start Date End Date Nano Back PA [address] [place], [place] [id number] PCP - [facility] 01/07/24 documented as of this encounter
--- NOTE | 2024-10-27 13:30 | ECG_ITS ---
[facility] Test Date: 2024-10-27 Pat Name: TEE DESAI Department: Room: - Gender: Female Shrimp Trawler: : 2000 Requested By: ELSI LOZANO Order Number: [id number] Reading MD: APOLLO CASTANON M.D. Measurements Intervals [place] Rate: 96 P: 41 MT: 104 QRS: 52 QRSD: 86 T: 21 QT: 334 QTc: 424 Interpretive Statements SINUS RHYTHM WITH SHORT MT INTERVAL MINIMAL ST DEPRESSION [0.025+ mV ST DEPRESSION] Abnormal ECG No previous ECG available for comparison Electronically Signed On 10-28-2024 7:03:40 EDT by APOLLO CASTANON M.D.
--- NOTE | 2024-10-27 14:00 | CA_ITS ---
Patient Name: TEE DESAI MR#: [id number] : 2000 Exam Date: 10/27/2024 Ordering Doctor: DR ELSI LOZANO . ECHOCARDIOGRAM REPORT PROCEDURE: CA ECHO DOPPLER COMPLETE INDICATIONS: Shortness of breath, dizziness COMPARISON: None. DESCRIPTION: COMPLETE ECHOCARDIOGRAM Real-time transthoracic echocardiography with 2D, M-mode, spectral and color flow Doppler performed. QUALITY: Technical quality was good. LEFT VENTRICLE: Normal chamber size. Normal left ventricular wall thickness. Global left ventricular systolic function is normal. LV EF: Estimated left ventricular ejection fraction is 55-60%. DIASTOLIC: Normal diastolic function. ATRIAL SEPTUM: LEFT ATRIUM: Normal chamber size. RIGHT ATRIUM: Normal chamber size. RIGHT VENTRICLE: Normal chamber size. Normal right ventricular systolic function. TRICUSPID VALVE: Normal mobility and thickness. No stenosis with trivial regurgitation. No evidence of pulmonary hypertension. RVSP 20 mmHg. MITRAL VALVE: Normal mobility and thickness. No evidence of mitral valve stenosis. There is no mitral annular calcification. Trivial mitral regurgitation. AORTIC VALVE: Normal trileaflet appearance. No visible sclerosis. Normal leaflet mobility. No evidence of aortic valve stenosis. No aortic regurgitation. AORTIC ROOT: Normal diameter and appearance, measuring 3.0 cm. PULMONIC VALVE: Normal thickness and mobility. No stenosis. Trivial regurgitation. PERICARDIUM: No evidence of pericardial effusion. IVC: Collapses with inspiration. Normal size. PLEURA: CONCLUSION: 1. Normal ventricular size and systolic function. Estimated LVEF is 55-60%. 2. Normal diastolic function. 3. No significant valvular dysfunction. 4. Normal right-sided pressures. Adult Echocardiography Procedure Report Left Ventricle LVEDD (3.7 - 5.6 cm): 4.70 cm LVESD (2.2 - 4.0 cm): 3.33 cm LVIVS thickness (0.6 - 1.2 cm): 0.90 cm LVPW thickness (0.5 - 1.0 cm): 0.85 cm e': 0.18 m/s E - e': 3.98 LVOT Max Gradient: 4.19 mm[Hg] LVOT Area (cm2): 1.02 m/s Peak Velocity (LVOT): 1.02 m/s Mean Velocity (LVOT): 0.76 m/s LVOT Diameter 2.06 cm Left Ventricular Ejection Fraction: 55-60% Left Atrium LA Volume Index (2D A2C): 22.70 ml/m2 Left Atrium Systolic Dimension: 3.80 cm Mitral Valve MV E to A Ratio: 1.13 Mitral Valve A-Wave Peak Velocity: 0.63 m/s Mitral Valve E-Wave Peak Velocity: 0.71 m/s Right Ventricle RV Internal Diastolic Dimension: 4.05 cm Aorta AO Root Diam: 3.00 cm Ascending Ao Diam: 2.82 cm Aortic Valve AoV Area (Peak Eloy): 2.53 cm2, 2.50 cm2 AoV Area (VTI): 2.79 cm2, 2.74 cm2 Peak Velocity(Antegrade Flow): 1.36 m/s, 1.33 m/s Peak Gradient(Antegrade Flow): 7.43 mm[Hg], 7.04 mm[Hg] Mean Velocity(Antegrade Flow): 0.95 m/s, 0.95 m/s Mean Gradient(Antegrade Flow): 4.10 mm[Hg], 4.06 mm[Hg] Velocity Time Integral: 23.83 cm, 22.94 cm Tricuspid Valve Peak Velocity (Regurgitant Flow): 2.00 m/s, 1.80 m/s, 2.05 m/s Pulmonic Valve Mean Gradient: 2.46 mm[Hg] Mean Velocity: 0.74 m/s Peak Velocity: 1.01 m/s, 0.90 m/s Peak Gradient: 4.10 mm[Hg], 3.21 mm[Hg] Right Atrium Right Atrium Systolic Pressure: 56.50 ml, 56.50 ml Dictated by: Kenneth Tena M.D. on 10/28/2024 at 18:40 Approved by: Kenneth Tena M.D. on 10/28/2024 at 18:43
== END 2024-10-27 13:22 | disposition home or self-care (01) ==
LOC: CARD 13:21
PROVIDERS: Visit Provider Obstetrics & Gynecology
DX: R06.02 Shortness of breath (principal); R42 Dizziness and giddiness
CPT/HCPCS: 93005; 93306

== ENCOUNTER 2024-11-19 16:46 | Observation (INO) | payer OTHER, SELFPAY ==
--- OUTSIDE RECORDS SUMMARY | 2024-11-19 16:56 | XMS_ITS | CCD ---
Author Organization [facility] Care Team Providers Care Refuse And Recycling Worker Name Role Phone NON STAFF Primary Care Provider LAURA Kraft Emergency Provider NICOLE Ricci Emergency Provider DAPHNIE ., DR ALEXANDRE Attending Unavailabl e KARASIK ., DR ALEXANDRE Admitting Unavailabl [facility] Unava ilable KARASIK ., DR ALEXANDRE Consulting Unavailabl e LAVINIA, DR CHRISTIAN Doyle Consulting Unavailable KARASIK ., DR ALEXANDRE Consulting Unavailabl e KARASIK ., DR ALEXANDRE Attending Unavailabl e [facility] Unava ilable KARASIK ., DR ALEXANDRE Admitting Unavailabl e ANGELA SCOTT Consulting Unavailable DINA, DR ANA Dennis Attending Unavailable DINA, DR ANA Dennis Admitting [facility] Unava ilable DINA, DR ANA Dennis Consulting Unavailable BOATENG ., MR CUADRA Consulting Unavailable KARASIK ., DR ALEXANDRE Attending Unavailabl [facility] Unava ilable KARASIK ., DR ALEXANDRE Admitting Unavailabl e KARASIK ., DR ALEXANDRE Attending Unavailabl e [facility] Unava ilable KARASIK ., DR ALEXANDRE Admitting Unavailabl e KARASIK ., DR ALEXANDRE Consulting Unavailabl e JOANNE HUDSON Consulting Unavailable ENIO ATKINS Consulting Unavailable [facility] Unava ilable KARASIK ., DR [...] DR ALEXANDRE Attending Unavailabl e [facility] Primary Care Unava ilable KARASIK ., DR ALEXANDRE Admitting Unavailabl e KARASIK ., DR ALEXANDRE Consulting Unavailabl e ZIEBER, ANGELA Dennis Consulting Unavailable KARASIK ., DR ALEXANDRE Attending Unavailabl e KARASIK ., DR ALEXANDRE Admitting Unavailabl e [facility] Primary Care Unava ilable KARASIK ., DR ALEXANDRE Consulting Unavailabl e KARASIK ., DR ALEXANDRE Consulting Unavailabl e KARASIK ., DR ALEXANDRE Attending Unavailabl e [facility] Primary Care Unava ilable KARASIK ., DR ALEXANDRE Admitting Unavailabl e WEST, DR CHRISTIAN Doyle Consulting Unavailable REQUEST, DR AMBER LISTED Consulting Unavaila ble Unavailable [facility] Foster [facility] Primary Care Provider Mario PAC, Errol N Attending Unavailable Mario PAC, Errol N Admitting Unavailable JANES, ROBERT R Primary Care Unavailable Provider, None Primary Care Unavailable JANES, ROBERT R Attending Unavailable JANES, ROBERT R Admitting Unavailable JANES, ROBERT R Admitting Unavailable Provider, None Primary Care Unavailable JANES, ROBERT R Attending Unavailable Provider, Unlisted Primary Care Unavailable Le, Abner K Attending Unavailable Le, Abner K Admitting Unavailable Provider, None Primary Care Unavailable Oneil Littlejohn Attending Unavailable JANES, ROBERT R Primary Care Unavailable RyannCAROL barillas-C Doug Vasquez Attending Unavailable Ryann, DIRECTOR OF TEENAGE ACTIVITIES-C Doug Vasquez Admitting Unavailable SERVICES, [facility] Primary Care Unava ilable SERVICES, [facility] Primary Care Unava ilable COLE BLACKMON Attending Unavailab le SERVICES, [facility] Primary Care Unava ilable JULISA LAZO Attending Unavailable SERVICES, [facility] Primary Care Unava ilable LEIGH SMALLS Attending Unavailable SERVICES, [facility] Primary Care Unava ilable ANGELA GONGORA Attending Unavailable SERVICES, [facility] Primary Care Unava ilable ASHELY AYALA Attending Unavailable JANES, ROBERT Attending Unavailable JANES, ROBERT Attending Unavailable JANES, ROBERT Referring Unavailable NANO BACK Attending Unavailable ROBERT MARRERO Attending Unavailable ROBERT MARRERO Attending Unavailable ROBERT MARRERO Attending Unavailable NANO BACK Attending Unavailable Allergies Allergy Classification Reported Allergen(s) Allergy Type Date of Onset Reaction(s) Facility (1 source) [facility] All[facility] Repository (2 sources) Azithromycin; Translations: [AZITHROMYCIN] Drug Allergy [address] [facility] Repository (20 sources) Azithromycin Drug Allergy 2 [facility] Healthcare Work Phone: (20 sources) Macrolides And Ketolides Drug Allergy 4 Unknown [facility] Healthcare (20 sources) Wound Dressing Adhesive Drug Allergy 4 [facility] Healthcare (20 sources) metroNIDAZOLE; Translations: [METRONIDAZOLE] Drug Allergy 4 GI intolerance [facility] Healthcare Work Phone: (5 sources) Adhesive agent; Translations: [ADHESIVE] Propensity to adverse reactions to drug 3 [employer] (1 source) Adhesive bandage; Translations: [Adhesive Bandage] Propensity to adverse reactions (disorder) [facility] Repository (1 source) Azithromycin; Translations: [Zithromax] Drug Allergy [facility] Repository (1 source) metroNIDAZOLE; Translations: [Flagyl] Drug Allergy [facility] Repository Medications Current Medications Medication Drug Class(es) Dates Sig (Normalized) Sig (Original) [id number] 200 actuat albuterol 0.09 mg/actuat metered dose [...] 03/06/2023 Active metoclopramide 10 mg oral tablet (18 sources) Dopamine-2 Receptor Antagonist Start: 07-27-2024 End: 10-08-2024 metoclopramide (Reglan) 10 MG tablet Indications: Nausea and vomiting in ([facility]) Take 1 tablet (10 mg) by mouth in the morning and 1 tablet (10 mg) at noon and 1 tablet (10 mg) in the evening. Take before meals. Take 1 tablet by mouth 30 minutes prior to meals 3 times daily as needed for nausea. 90 tablet 09/08/2024 Active naproxen 500 mg oral tablet (1 [...] Episodic/Chronic Conditions associated with dizziness or vertigo (5 sources) Dizziness; Translations: [Dizziness and giddiness] Onset: 5 10-05-2024 Episodic Immunizations and screening for infectious disease (3 sources) Contact with and (suspected) exposure to infections with a predominantly sexual mode of transmission; Translations: [Exposure to sexually transmissible disorder] Onset: 3 10-05-2024 Episodic Menstrual disorders (4 sources) Irregular menstruation, unspecified; Translations: [Missed period] Onset: 3 Chronic Nausea and vomiting (3 sources) Vomiting, unspecified; Translations: [Nausea with vomiting, unspecified] Onset: 5 Episodic Other circulatory disease (1 source) Orthostatic hypotension; Translations: [Orthostatic hypotension] Onset: 5 Episodic Other complications of ; puerperium affecting [...] 10-05-2024 Episodic Other and delivery including normal (20 sources) Encounter for supervision of normal , [...] [17 weeks gestation of ] 10-05-2024 Episodic Residual codes; unclassified (2 sources) Gestation period, 20 weeks; Translations: [20 weeks gestation of ] 10-26-2024 Episodic Sprains and strains (1 source) Sprain of ankle; Translations: [Sprain of unspecified ligament of unspecified ankle, initial encounter] 07-18-2021 Episodic Superficial injury; contusion (1 source) Contusion of knee; Translations: [Contusion of right knee, initial encounter] 05-15-2021 Episodic Syncope (1 source) Syncope and collapse; Translations: [Syncope and collapse] Onset: 5 Episodic Unclassified (1 source) Vomiting During Onset: 5 Unclassified (1 source) Threatened Miscarriage Onset: 5 Unclassified (1 source) Cold Like Symptoms Onset: 5 Viral infection (2 sources) COVID-19; Translations: [Disease caused by 2019-nCoV] Onset: 5 Past or Other Problems Problem Classification Problem Date Documented Da te Episodic/Chronic Abdominal pain (5 sources) Pelvic and perineal pain; Translations: [Pain in pelvis] Onset: 10-17-2021 Episodic Esophageal disorders (1 source) Gastro-esophageal laceration-hemorrha ge syndrome; Translations: [GASTRO-ESOPHAGEAL LAC-HEMORR SYND] Onset: 04-04-2022 Episodic Hemorrhage during ; abruptio placenta; placenta previa (1 source) Threatened ; Translations: [Threatened ] Onset: 05-30-2024 Episodic Inflammatory diseases of female pelvic organs [...] Test Name Value Interpretation Reference Range Facility AFP, SERUM, OPEN SPINA BIFID Aon 10-28-2024 AFP MOM 1.64 . [facility] AFP VALUE 69.3 ng/mL . [facility] COMMENT: Comment . [facility] Comment on above: Simi Ewing , Ph.D., [facility] Director References: Available Upon Request. Multiples Of Median Cutoffs For AFP Elevations Andre 2.5 Black 2.8 IDD 2.0 Twins 4.5 Abbreviation Definitions IDD - Insulin Dep Diabetes OSBR - Open Spina Bifida Risk For further inquiries contact [employer] [facility] at [phone]. This test was developed and its performance characteristics determined by [employer]. It has not been cleared or approved by the Food and Drug Administration. Performed at: [facility] [address] [id number] Animal Husbandry Technician: Mahendra Adam Formerly [facility], Phone: [phone] GEST. AGE ON COLLECTION DATE 20.1 . weeks [facility] GESTAT. AGE BASED ON Ultrasound . [facility] Comment on above: 17.1 on 10/05/2024 Recalculations are not recommended when gestational dating by LMP and ultrasound are within 10 days. INSULIN DEP DIABETES No . [facility] INTERPRETATION Comment . [facility] Comment on above: Interpretation: Scre en Negative This result is screen negative for OSB. The AFP MoM calculated is based on the gestational age provided. MS-AFP can identify up to 80% of open neural tube defects. Closed neural tube defects and some open defects may not be detected by this test. This test does not screen for Down Syndrome or Trisomy 18. If screening for Down Syndrome or Trisomy 18 is desired, contact [employer] to discuss available options. The [employer] recommends amniocentesis be offered to women age 35 and older. [age] [facility] MULTIPLE GESTATION No . [facility] OSBR RISK 1 IN 1894 . [facility] RACE . [facility] RESULTS Report . [facility] TEST RESULTS: Negative . [facility] WEIGHT 251 . lbs [facility] N N ULTRASOUND [id number] 1 17 N 1 Y 251 N N N N N White/ [facility] CA ECHO DOPPLER COMPLETEon 0 10-28-2024 [place] [address] Cardiology Report Signed Patient: LIA DESAI MR#: [id number] : 2000 Acct:[id number] Age/Sex: 24 / F ADM Date: 10/27/24 Loc: CARD Attending Dr: Robert Marrero D.O. Ordering Physician: Robert Marrero D.O. Date of Service: 10/27/24 Procedure(s): CA echo doppler complete Accession Number(s): [id number] cc: Robert Marrero D.O.; Physician,Non-Staff MYohana Patient Name: LIA DESAI MR#: [id number] : 2000 Exam Date: 10/27/2024 Ordering Doctor: DR ROBERT MARRERO . ECHOCARDIOGRAM REPORT PROCEDURE: CA ECHO DOPPLER COMPLETE INDICATIONS: Shortness of breath, dizziness COMPARISON: None. DESCRIPTION: COMPLETE ECHOCARDIOGRAM Real-time transthoracic echocardiography with 2D, M-mode, spectral and color flow Doppler performed. QUALITY: Technical quality was good. LEFT VENTRICLE: Normal chamber size. Normal left ventricular wall thickness. Global left ventricular systolic function is normal. LV EF: Estimated left ventricular ejection fraction is 55-60%. DIASTOLIC: Normal diastolic function. ATRIAL SEPTUM: LEFT ATRIUM: Normal chamber size. RIGHT ATRIUM: Normal chamber size. RIGHT VENTRICLE: Normal chamber size. Normal right ventricular systolic function. TRICUSPID VALVE: Normal mobility and thickness. No stenosis with trivial regurgitation. No evidence of pulmonary hypertension. RVSP 20 mmHg. MITRAL VALVE: Normal mobility and thickness. No evidence of mitral valve stenosis. There is no mitral annular calcification. Trivial mitral regurgitation. AORTIC VALVE: Normal trileaflet appearance. No visible sclerosis. Normal leaflet mobility. No evidence of aortic valve stenosis. No aortic regurgitation. AORTIC ROOT: Normal diameter and appearance, measuring 3.0 cm. PULMONIC VALVE: Normal thickness and mobility. No stenosis. Trivial regurgitation. PERICARDIUM: No evidence of pericardial effusion. IVC: Collapses with inspiration. Normal size. PLEURA: CONCLUSION: 1. Normal ventricular size and systolic function. Estimated LVEF is 55-60%. 2. Normal diastolic function. 3. No significant valvular dysfunction. 4. Normal right-sided pressures. Adult Echocardiography Procedure Report Left Ventricle LVEDD (3.7 - 5.6 cm): 4.70 cm LVESD (2.2 - 4.0 cm): 3.33 cm LVIVS thickness (0.6 - 1.2 cm): 0.90 cm LVPW thickness (0.5 - 1.0 cm): 0.85 cm e': 0.18 m/s E - e': 3.98 LVOT Max Gradient: 4.19 mm[Hg] LVOT Area (cm2): 1.02 m/s Peak Velocity (LVOT): 1.02 m/s Mean Velocity (LVOT): 0.76 m/s LVOT Diameter 2.06 cm Left Ventricular Ejection Fraction: 55-60% Left Atrium LA Volume Index (2D A2C): 22.70 ml/m2 Left Atrium Systolic Dimension: 3.80 cm Mitral Valve MV E to A Ratio: 1.13 Mitral Valve A-Wave Peak Velocity: 0.63 m/s Mitral Valve E-Wave Peak Velocity: 0.71 m/s Right Ventricle RV Internal Diastolic Dimension: 4.05 cm Aorta AO Root Diam: 3.00 cm Ascending Ao Diam: 2.82 cm Aortic Valve AoV Area (Peak Eloy): 2.53 cm2, 2.50 cm2 AoV Area (VTI): 2.79 cm2, 2.74 cm2 Peak Velocity(Antegrade Flow): 1.36 m/s, 1.33 m/s Peak Gradient(Antegrade Flow): 7.43 mm[Hg], 7.04 mm[Hg] Mean Velocity(Antegrade Flow): 0.95 m/s, 0.95 m/s Mean Gradient(Antegrade Flow): 4.10 mm[Hg], 4.06 mm[Hg] Velocity Time Integral: 23.83 cm, 22.94 cm Tricuspid Valve Peak Velocity (Regurgitant Flow): 2.00 m/s, 1.80 m/s, 2.05 m/s Pulmonic Valve Mean Gradient: 2.46 mm[Hg] Mean Velocity: 0.74 m/s Peak Velocity: 1.01 m/s, 0.90 m/s Peak Gradient: 4.10 mm[Hg], 3.21 mm[Hg] Right Atrium Right Atrium Systolic Pressure: 56.50 ml, 56.50 ml Dictated by: Apollo Tena M.D. on 10/28/2024 at 18:40 Approved by: Apollo Tena M.D. on 10/28/2024 at 18:43 Dictated By: APOLLO TENA (more content not included)... [facility] Radiology, Radiologist, MD - 10/28/2024 [place] [address] Cardiology Report Signed Patient: LIA DESAI MR#: [id number] : 2000 Acct:[id number] Age/Sex: 24 / F ADM Date: 10/27/24 Loc: CARD Attending Dr: Robert Marrero D.O. Ordering Physician: Robert Marrero D.O. Date of Service: 10/27/24 Procedure(s): CA echo doppler complete Accession Number(s): [id number] cc: Robert Marrero D.O.; Physician,Non-Staff Nena Patient Name: LIA DESAI MR#: [id number] : 2000 Exam Date: 10/27/2024 Ordering Doctor: DR ROBERT MARRERO . ECHOCARDIOGRAM REPORT PROCEDURE: CA ECHO DOPPLER COMPLETE INDICATIONS: Shortness of breath, dizziness COMPARISON: None. DESCRIPTION: COMPLETE ECHOCARDIOGRAM Real-time transthoracic echocardiography with 2D, M-mode, spectral and color flow Doppler performed. QUALITY: Technical quality was good. LEFT VENTRICLE: Normal chamber size. Normal left ventricular wall thickness. Global left ventricular systolic function is normal. LV EF: Estimated left ventricular ejection fraction is 55-60%. DIASTOLIC: Normal diastolic function. ATRIAL SEPTUM: LEFT ATRIUM: Normal chamber size. RIGHT ATRIUM: Normal chamber size. RIGHT VENTRICLE: Normal chamber size. Normal right ventricular systolic function. TRICUSPID VALVE: Normal mobility and thickness. No stenosis with trivial regurgitation. No evidence of pulmonary hypertension. RVSP 20 mmHg. MITRAL VALVE: Normal mobility and thickness. No evidence of mitral valve stenosis. There is no mitral annular calcification. Trivial mitral regurgitation. AORTIC VALVE: Normal trileaflet appearance. No visible sclerosis. Normal leaflet mobility. No evidence of aortic valve stenosis. No aortic regurgitation. AORTIC ROOT: Normal diameter and appearance, measuring 3.0 cm. PULMONIC VALVE: Normal thickness and mobility. No stenosis. Trivial regurgitation. PERICARDIUM: No evidence of pericardial effusion. IVC: Collapses with inspiration. Normal size. PLEURA: CONCLUSION: 1. Normal ventricular size and systolic function. Estimated LVEF is 55-60%. 2. Normal diastolic function. 3. No significant valvular dysfunction. 4. Normal right-sided pressures. Adult Echocardiography Procedure Report Left Ventricle LVEDD (3.7 - 5.6 cm): 4.70 cm LVESD (2.2 - 4.0 cm): 3.33 cm LVIVS thickness (0.6 - 1.2 cm): 0.90 cm LVPW thickness (0.5 - 1.0 cm): 0.85 cm e': 0.18 m/s E - e': 3.98 LVOT Max Gradient: 4.19 mm[Hg] LVOT Area (cm2): 1.02 m/s Peak Velocity (LVOT): 1.02 m/s Mean Velocity (LVOT): 0.76 m/s LVOT Diameter 2.06 cm Left Ventricular Ejection Fraction: 55-60% Left Atrium LA Volume Index (2D A2C): 22.70 ml/m2 Left Atrium Systolic Dimension: 3.80 cm Mitral Valve MV E to A Ratio: 1.13 Mitral Valve A-Wave Peak Velocity: 0.63 m/s Mitral Valve E-Wave Peak Velocity: 0.71 m/s Right Ventricle RV Internal Diastolic Dimension: 4.05 cm Aorta AO Root Diam: 3.00 cm Ascending Ao Diam: 2.82 cm Aortic Valve AoV Area (Peak Eloy): 2.53 cm2, 2.50 cm2 AoV Area (VTI): 2.79 cm2, 2.74 cm2 Peak Velocity(Antegrade Flow): 1.36 m/s, 1.33 m/s Peak Gradient(Antegrade Flow): 7.43 mm[Hg], 7.04 mm[Hg] Mean Velocity(Antegrade Flow): 0.95 m/s, 0.95 m/s Mean Gradient(Antegrade Flow): 4.10 mm[Hg], 4.06 mm[Hg] Velocity Time Integral: 23.83 cm, 22.94 cm Tricuspid Valve Peak Velocity (Regurgitant Flow): 2.00 m/s, 1.80 m/s, 2.05 m/s Pulmonic Valve Mean Gradient: 2.46 mm[Hg] Mean Velocity: 0.74 m/s Peak Velocity: 1.01 m/s, 0.90 m/s Peak Gradient: 4.10 mm[Hg], 3.21 mm[Hg] Right Atrium Right Atrium Systolic Pressure: 56.50 ml, 56.50 ml Dictated by: Apollo Tena M.D. on 10/28/2024 at 18:40 Approved by: Apollo Tena M.D. on 10/28/2024 at 18:43 Dictated By: APOLLO TENA Signed By: 10/28/241843 DD/ 42 TD/TT: Seismographer: [facility] Radiology Study observation (narrative) [facility] CA ECHO DOPPLER COMPLETEOrde red By: Radiologist Radiology on 10-28-2024 [facility] Work Phone: ECG 12-LEADon 10-28-2024 [place] [address] Electrocardiograph Report Signed Patient: LIA DESAI MR#: [id number] : 2000 Acct:[id number] Age/Sex: 24 / F ADM Date: 10/27/24 Loc: CARD Attending Dr: Robert Marrero D.O. Ordering Physician: Robert Marrero D.O. Date of Service: 10/27/24 Procedure(s): ECG 12 lead Accession Number(s): [id number] cc: [facility] Test Date: 2024-10-27 Pat Name: LIA DESAI Department: Room: - Gender: Female Supply Requirements Officer: : 2000 Requested By: ROBERT MARRERO Order Number: [id number] Reading MD: APOLLO TENA M.D. Measurements Intervals Bath Rate: 96 P: 41 CT: 104 QRS: 52 QRSD: 86 T: 21 QT: 334 QTc: 424 Interpretive Statements SINUS RHYTHM WITH SHORT CT INTERVAL MINIMAL ST DEPRESSION [0.025+ mV ST DEPRESSION] Abnormal ECG No previous ECG available for comparison Electronically Signed On 10-28-2024 7:03:40 EDT by APOLLO TENA M.D. Dictated By: APOLLO TENA Signed By: 10/28/2470210/28/24702 DD/ 113 TD/TT: Seismographer: [facility] Radiology, Radiologist, - 10/28/2024 [place] [address] Electrocardiograph Report Signed Patient: LIA DESAI MR#: [id number] : 2000 Acct:[id number] Age/Sex: 24 / F ADM Date: 10/27/24 Loc: CARD Attending Dr: Robert Marrero D.O. Ordering Physician: Robert Marrero D.O. 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 Measurements Intervals Bath Rate: 96 P: 41 CT: 104 QRS: 52 QRSD: 86 T: 21 QT: 334 QTc: 424 Interpretive Statements SINUS RHYTHM WITH SHORT CT INTERVAL MINIMAL ST DEPRESSION [0.025+ mV ST DEPRESSION] Abnormal ECG No previous ECG available for comparison Electronically Signed On 10-28-2024 7:03:40 EDT by APOLLO TENA M.D. Dictated By: APOLLO TENA Signed By: 10/28/24 0703 10/28/24 0703 DD/ 1137 TD/TT: Seismographer: [facility] ECG 12-LEADOrdered By: Radio vu Radiology on 10-28-2024 [facility] Work Phone: ECG 12-LEADon 10-27-2024 Radiology Study observation (narrative) [facility] US OB 14+ WEEKS ANATOMY SCAN on 10-26-2024 US OB 14+ WEEKS ANATOMY SCAN EXAM: US OB 14+ WEEKS ANATOMY SCAN [...] II, MD, PHD at 27-Oct-2024 07:25:37 AM [facility] Normal Not Available Comment on above: Order Comment: US OB ANATOMY SINGLE W US OB CERVICAL LENGTH Estimated Date of Delivery: 03/14/25 Gestational Age as of 10/05/2024: 17w1d Urinalysis macro (dipstick) panel (U)on 10-26-2024 Bilirubin, UA Negative Negative - 4(70) +++ mg/dL [facility] Blood, UA Negative Negative - 50 Villa/mcL [facility] Clarity, [facility]A [facility] Color, UA Yellow [facility] Glucose, UA Negative Negative - 2000(110) ++++ mg/dL [facility] Interpretation and review of laboratory results Normal [facility] Ketones, UA Negative Negative - 160(16) ++++ mg/dL [facility] Leukocytes, UA Negative Negative - 500+++ Pierre/mcL [facility] Nitrite, UA Negative Negative - Positive [facility] pH, UA 6 5 - 9 [facility] Protein, UA Negative Negative - 2000(20) ++++ mg/dL [facility] Spec Grav, UA 1.02 1 - 1.03 [facility] Urobilinogen, UA 1.0 0.2 - 12 mg/dL [facility] B-TYPE NATRIURETIC PEPTIDEon 10-15-2024 Natriuretic peptide B (Bld) [Mass/Vol] 5 pg/mL Normal <=100 [facility] Comment on above: Performed By: #### C BCA, CMP, 1987- #### [facility] ([id number]) [address] [place] [address], [place] [address] CBC WITH AUTO DIFFERENTIALon 10-15-2024 BASOPHILS ABSOLUTE COUNT (10*3/UL) BY AUTOMATED COUNT 0.0 10*3/uL Normal 0.0-0.2 [facility] Comment on above: Performed By: #### 2 106-3 #### [facility] ([id number]) [address] [place] [address] BASOPHILS RELATIVE PERCENT BY AUTOMATED COUNT 0.2 % Normal [facility] Comment on above: Performed By: #### 2 106-3 #### [facility] ([id number]) [address] [place] [address] CELLAVISION DIFFERENTIAL TYPE AUTOMATED DIFFERENTIAL Normal [facility] Comment on above: Performed By: #### 2 106-3 #### [facility] ([id number]) [address] [place] [address] Eosinophils (Bld) [#/Vol] 0.0 10*3/uL Normal 0.0-0.4 [facility] Comment on above: Performed By: #### 2 106-3 #### [facility] ([id number]) [address] [place] [address] EOSINOPHILS RELATIVE PERCENT BY AUTOMATED COUNT 0.3 % Normal [facility] Comment on above: Performed By: #### 2 106-3 #### [facility] ([id number]) [address] [place] [address] Erythrocyte distribution width (RBC) [Ratio] 14.1 % Normal 11.5-15 [facility] Comment on above: Performed By: #### 2 106-3 #### [facility] ([id number]) [address] [place] [address] Hematocrit (Bld) [Volume fraction] 38.7 % Normal 35-47 [facility] Comment on above: Performed By: #### 2 106-3 #### [facility] ([id number]) [address] [place] [address] Hemoglobin (Bld) [Mass/Vol] 13.0 g/dL Normal 11.7-15.5 [facility] Comment on above: Performed By: #### 2 106-3 #### [facility] ([id number]) [address] [place] [address] LYMPHOCYTES ABSOLUTE COUNT (10*3/UL) BY AUTOMATED COUNT 2.4 10*3/uL Normal 1.0-3.5 [facility] Comment on above: Performed By: #### 2 106-3 #### [facility] ([id number]) [address] [place] [address] LYMPHOCYTES RELATIVE PERCENT BY AUTOMATED COUNT 18.3 % Normal [facility] Comment on above: Performed By: #### 2 106-3 #### [facility] [facility] ([id number]) [address] [place] [address] 97640 MCH (RBC) [Entitic mass] 27.1 pg Normal 27-34 [facility] Comment on above: Performed By: #### 2 106-3 #### [facility] ([id number]) [address] [place] [address] 14740 MCHC (RBC) [Mass/Vol] 33.7 g/dL Normal 32-36 [facility] Comment on above: Performed By: #### 2 106-3 #### [facility] ([id number]) [address] [place] [address] 80833 MCV (RBC) [Entitic vol] 80 fL Normal 80-100 [facility] Comment on above: Performed By: #### 2 106-3 #### [facility] ([id number]) [address] [place] [address] 51440 MONOCYTES ABSOLUTE COUNT (10*3/UL) BY AUTOMATED COUNT 1.0 10*3/uL High 0.0-0.9 [facility] Comment on above: Performed By: #### 2 106-3 #### [facility] ([id number]) [address] [place] [address] 01795 MONOCYTES RELATIVE PERCENT BY AUTOMATED COUNT 8.0 % Normal [facility] Comment on above: Performed By: #### 2 106-3 #### [facility] ([id number]) [address] [place] [address] 64334 NEUTROPHILS ABSOLUTE COUNT BY AUTOMATED COUNT 9.5 10*3/uL High 1.5-6.6 [facility] Comment on above: Performed By: #### 2 106-3 #### [facility] ([id number]) [address] [place] [address] 11612 NEUTROPHILS RELATIVE PERCENT BY AUTOMATED COUNT 73.2 % Normal [facility] Comment on above: Performed By: #### 2 106-3 #### [facility] ([id number]) [address] [place] [address] 31997 Platelet mean volume (Bld) [Entitic vol] 9.2 fL Normal 7-12 [facility] Comment on above: Performed By: #### 2 106-3 #### [facility] ([id number]) [address] [place] [address] 13029 Platelets (Bld) [#/Vol] 362 10*3/uL Normal 150-450 [facility] Comment on above: Performed By: #### 2 106-3 #### [facility] ([id number]) [address] [place] [address] 26616 RBC COUNT 4.82 X10E12/L Normal 3.8-5.2 [facility] Comment on above: Performed By: #### 2 106-3 #### [facility] ([id number]) [address] [place] [address] 58585 WBC (Bld) [#/Vol] 13.0 10*3/uL High 4-11 [facility] Comment on above: Performed By: #### 2 106-3 #### [facility] ([id number]) [address] [place] [address] 78828 COMPREHENSIVE METABOLIC PANE Alex 10-15-2024 Albumin [Mass/Vol] 3.4 g/dL Normal 3.2-5.3 [facility] Comment on above: Performed By: #### C BARAK [facility], 1987-08 #### [facility] ([id number]) [address] [place] [address] 80106 ALP [Catalytic activity/Vol] 76 U/L Normal 39-130 [facility] Comment on above: Performed By: #### Shakeel CANCINO [facility], 1987-08 #### [facility] ([id number]) [address] [place] [address] 70900 ALT [Catalytic activity/Vol] 11 U/L Normal <=31 [facility] Comment on above: Performed By: #### Shakeel CANCINO [facility], 1987-08 #### [facility] ([id number]) [address] [place] [address] 40200 Anion gap [Moles/Vol] 11 mmol/L Normal 5-15 [facility] Comment on above: Performed By: #### Shakeel CANCINO [facility], 1987-08 #### [facility] ([id number]) [address] [place] [address] 62456 AST [Catalytic activity/Vol] 17 U/L Normal <=41 [facility] Comment on above: Performed By: #### Shakeel CANCINO [facility], 1987-08 #### [facility] ([id number]) [address] [place] [address] 06014 Bilirubin [Mass/Vol] 0.7 mg/dL Normal 0.3-1.2 [facility] Comment on above: Performed By: #### Shakeel CANCINO [facility], 1987-08 #### [facility] ([id number]) [address] [place] [address] 17133 Calcium [Mass/Vol] 9.0 mg/dL Normal 8.5-10.5 [facility] Comment on above: Performed By: #### Shakeel CANCINO CMP, 1986-08 #### [facility] ([id number]) [address] [place] [address] 26621 Chloride [Moles/Vol] 105 mmol/L Normal 98-109 [facility] Comment on above: Performed By: #### C BARAK [facility], 1987-08 #### [facility] ([id number]) [address] [place] [address] 52518 CO2 [Moles/Vol] 21 mmol/L Low 22-32 [facility] Comment on above: Performed By: #### C BARAK [facility], 1987-08 #### [facility] ([id number]) [address] [place] [address] 85140 Creatinine [Mass/Vol] 0.71 mg/dL Normal 0.40-1.00 [facility] Comment on above: Result Comment: METH OD TRACEABLE TO IDMS STANDARD Performed By: #### C BARAK [facility], 1987-08 #### [facility] ([id number]) [address] [place] [address] 53595 EGFR (CKD-EPI) NON-RACE DEPENDENT >^90 Normal >=60 [facility] Comment on above: Result Comment: eGFR not reported due to non-numeric value for Creatinine. Reported eGFR is based on the CKD-EPI 2021 equation that does not use a race coefficient. Performed By: #### C BARAK [facility], 1987-08 #### [facility] ([id number]) [address] [place] [address] 16058 Glucose [Mass/Vol] 80 mg/dL Normal 65-99 [facility] Comment on above: Performed By: #### Shakeel CANCINO [facility], 1987-08 #### [facility] ([id number]) [address] [place] [address] 66312 Potassium [Moles/Vol] 4.1 mmol/L Normal 3.5-5.0 [facility] Comment on above: Performed By: #### Shakeel CANCINO [facility], 1987-08 #### [facility] ([id number]) [address] [place] [address] 67735 Protein [Mass/Vol] 7.1 g/dL Normal 6.0-8.0 [facility] Comment on above: Performed By: #### C HILLARY CANCINO, 1986-08 #### [facility] ([id number]) [address] [place] [address] 80566 Sodium [Moles/Vol] 137 mmol/L Normal 134-146 [facility] Comment on above: Performed By: #### Shakeel CANCINO [facility], 1987-08 #### [facility] ([id number]) [address] [place] [address] 49736 Urea nitrogen [Mass/Vol] 6 mg/dL Normal 5-23 [facility] Comment on above: Performed By: #### Shakeel CANCINO [facility], 1987-08 #### [facility] ([id number]) [address] [place] [address] 43349 MAGNESIUMon 10-15-2024 Magnesium [Mass/Vol] 2.0 mg/dL Normal 1.8-2.6 [facility] Comment on above: Performed By: #### Shakeel CANCINO [facility], 1987-08 #### [facility] ([id number]) [address] [place] [address] 09269 TROP I, HIGH SENSITIVITY 1 H OURon 10-15-2024 TROPONIN I, HIGH SENSITIVITY <^2 Normal <16 [facility] Comment on above: Performed By: #### Shakeel CANCINO [facility], 1987-08 #### [facility] ([id number]) [address] [place] [address] 06180 TROPONIN I, HIGH SENSITIVITY 0 HOURon 10-15-2024 TROPONIN I, HIGH SENSITIVITY <^2 Normal <16 [facility] Comment on above: Performed By: #### Shakeel CANCINO CMP, 1987-08 #### [facility] ([id number]) [address] [facility], [place] [address] IGP,APTIMA HPV,AGE GDLNon AGE GDLN ACOG TESTING Note . [facility] Comment on above: TESTS RESULT FLAG UN ITS REF RANGE LAB Clinician Provided Cytology Information Source.............Cervix No. of containers..01 ThinPrep Vial Age Algo ACOG Marielos... FLAG LEGEND: L-Low Normal,H-High Normal,LL-Alert Low,HH-Alert High <-Panic Low,>-Panic High,A-Abnormal,AA-Critical Abnormal Performed at: 01 =G [facility] [address] Kylee Rivera MD, IGP, RFX APTIMA HPV ASCU Note . [facility] Comment on above: TESTS RESULT FLAG UN ITS REF RANGE LAB DIAGNOSIS: 02 NEGATIVE FOR INTRAEPITHELIAL LESION OR MALIGNANCY. Specimen adequacy: 02 Satisfactory for evaluation. Endocervical and/or squamous metaplastic cells (endocervical component) are present. Performed by: 02 Vilma Lennon Bridge Engineer (ASCP) . 02 Note: Note 03 The Pap [...] High,A-Abnormal,AA-Critical Abnormal Performed at: 02 [facility] [address] [place] [address] Med Campbell MD, 03 WB [facility] [address] [address] Kylee Rivera MD, Performed at: =G - [facility] [address] [id number] Animal Husbandry Technician: Kylee Rivera MD, Phone: [phone] Performed at: [facility] [address] [place], [place] [id number] Animal Husbandry Technician: Med Campbell MD, Phone: [phone] SPATULA-ALONE CERVIX [facility] RECURRENT VAGINITIS (HTRX)on 10-06-2024 ATOPOBIUM VAGINAE 0 [facility] ATOPOBIUM VAGINAE Not detected [facility] BVAB 2,3 (BACTERIAL VAGINOSIS ASSOCIATED BACTERIA 2, 3); MOBILUNCUS SPP 0 [facility] BVAB 2,3 (BACTERIAL VAGINOSIS ASSOCIATED BACTERIA 2, 3); MOBILUNCUS SPP Not detected [facility] YANG ALBICANS, PARAPSILOSIS, TROPICALIS 0 [facility] YANG ALBICANS, PARAPSILOSIS, TROPICALIS Not detected [facility] YANG GLABRATA 0 [facility] YANG GLABRATA Not detected [facility] YANG KRUSEI 0 [facility] YANG KRUSEI Not detected [facility] CHLAMYDIA TRACHOMATIS 0 [facility] CHLAMYDIA TRACHOMATIS Not detected [facility] ERMB, C; MEFA 25.809 Abnormal [facility] ERMB, C; MEFA Detected Abnormal [facility] GARDNERELLA VAGINALIS 29.457 Abnormal [facility] GARDNERELLA VAGINALIS Detected Abnormal [facility] Interpretation and review of laboratory results Abnormal [facility] MEGASPHAERA (TYPES 1, 2) 0 [facility] MEGASPHAERA (TYPES 1, 2) Not detected [facility] MYCOPLASMA GENITALIUM 0 [facility] MYCOPLASMA GENITALIUM Not detected [facility] NEISSERIA GONORRHOEAE 0 [facility] NEISSERIA GONORRHOEAE Not detected [facility] TET B, TET M 26.802 Abnormal [facility] TET B, TET M Detected Abnormal [facility] TRICHOMONAS VAGINALIS 0 [facility] TRICHOMONAS VAGINALIS Not detected [facility] Urinalysis macro (dipstick) panel (U)on 10-05-2024 Bilirubin, UA Positive Negative - 4(70) +++ mg/dL [facility] Comment on above: small Blood, UA Positive Negative - 50 Villa/mcL [facility] Comment on above: trace Clarity, UA Clear [facility] Color, UA Yellow [facility] Glucose, UA Negative Negative - 1999(110) ++++ mg/dL [facility] Interpretation and review of laboratory results Abnormal [facility] Ketones, UA Positive Negative - 160(16) ++++ mg/dL [facility] Comment on above: 15 Leukocytes, UA Negative Negative - 500+++ Pierre/mcL [facility] Nitrite, UA Negative Negative - Positive [facility] pH, UA 6.5 5 - 9 [facility] Protein, UA Positive Negative - 1999(20) ++++ mg/dL [facility] Comment on above: 100 Spec Grav, UA 1.025 1 - 1.03 [facility] Urobilinogen, UA 1.0 0.2 - 12 mg/[facility] Coding Summaryon 09-23-2024 Coding Summary HTMLBase 64 KyhuucopJNw2nWf+PGhlY WQ+LC3XYEMzB61zmOUyvX 3sX5QYRJiARuowVSAPOTe VKmCxcnRpFF5ffHKbGBDg IC8+CQ8rOOLcVbiqjTXyw 9Z1eIT5K29abp9mEBaegJ A6DSBfGjVtleose2zdmSz 6IDcuNmluOyBt SBImtL19AMS1zP76Fw35p WOqbRVdo9pflHb6WtIlRM YjXCF0gIayATtes1RwWYH oS54fmDYpi9Q8 TFOzxQmujNYvJfZddVA9v I9gPYujkitwa7occhegCq a9pt50gROky7B1uES0F6T jomY1VJCdjOPi NzxljJCZzY8ipvpwa6ndc djxCwNfYSIzWEo0UEg7TO SxuPjsTdCsML33SHX6IKF xbbQaI5OoBPCy jXopCzX8j6O6Cu6SP2AOQ nlcJ9YARAVVFXtdnZK+PC 75lx75M1NeFdarLeb0DRE wJYA8gJB1mC4x NCVkHLpdv0B8xIK7I4Lff pKayd5lj9poKSLeKCaoK8 9fpZKrd9F9DBQwiVZ0WED ipEizEkFdyT29 Oyc+SSFelCgzv3LlAmlor 6ktj6khkZn7FpyqINUeff BnkJvuDBR2q2JkFh5mIYW qsPA0zOX0uB1q DgGqNlO6BXzuK363LbGcs DHrFnwcU30kP8MdiZY+PH LlKjn9SZXmdPnpES0uN6I hZGRpbmctbGVm yFggBM2kJOCytdhwWMAoo U3pGBXsS9g6BaOdWjW1ZP npF3ArGKIykurtPc90wT2 gZlWrEbS0QJch C7RlfcJ8QQJamBWqJRquS GB1A07aa5D4NOSlTHNpZI S6wSR0zM3luRbtzlilmMP mdDsgdmVydGlj ADyjGIafS530NFIbyQunI kNvZGluZyBEYXRlOiAgMD YvMTgvMjAyNTwvdGQ+PHR vEXA9oRlrEOEz cSStXNboVs1ejNddmWskI P9eTQRjnhoqPURdsO1zII PznQWroLnpQA6oSSRfucl zg878SpBvDLV2 XCJwmFBxC7GdsZ4yLpYbQ MKpJTQiN7FjeLKfCZwfF2 20WUltQmN2OIHcbzInP9N sLWFsaWduOiB0 v6U8Rs5Yl9CuhgfxT1Oqc QVyPnNcTfmvXZt8G3DpCe wvdHI+KU18MBPiGJ97PYi 0ALM7aLlmPKro BRQzC0ZmfJ6gXyGfRYFvK GRkOyc+PHRhYmxlIHdpZH RoPScxMDAlJyBzdHlsZT0 jAb9yALGiPILf uJlkmCAiRsTnb7xnWBSjC PedOV9ceNmfO6MglSN6EJ Iem0d4Yy90G09gS3AxqVS +GTBbsZV6xUW7 pC9bIuUzCwP7KHgbQ655H kMkjWBuKjeht9ysm3ijkP f0WoO9DZWcxdXefFsuFBT 6u6VhZc10Y95q IHdpZHRoPSIxNSUiIHZhb Imqdv6vcY3vRg3+PGNvbC D7tNQ8aF4yYgPpAcR0RBe xC914ElBowRNy Lreyf0epq1yzuLs4AoBeJ KKgajPjbNixHWM9y4DjRd 22W0KnvUkuh0QtSbz9mp2 4nTWyk5C6nFL7 G6AmXOCnudkecDIoiXrgR D5rPKVlrwueJRNqxK4zKT MaC1b6ImOlBpM0XNrrW5U jhkG7KRXpcDWu WLUlbHBVpH2jbkohe6fmi zgfGoQvSRQeWSr7IWb7TN KlfGtrAiSdEPD5IgY5YIV 3fCYznW2jyXhs tmxzyJ3vHuo+RQQ4kCLke DFGFY8iBibveLO+PHRkIH H4hSixERhdRNGayQ1bPMW wK2s1DvHoJnZ4 ULgiO7LhooN3DJPjgLZxM WFbgTSPqL4topfwu4vdto ddRqJwZHLbIOs4MFu2IRP saWduOiBsZWZ0 AaU6ZVC4yYPmtQ6voYcpk keztM0sXir+QmlydGggRG T3GPo0G0PrZkd6IBEojNs tGB8puXKzBWen Sk6cgXeqtGheZA4xDQJvz kepx900OvVor2rmZDOxkW DhCDdxGFJ7D84le3L1ZGQ oHEUeJAZ3fXU6 fK1qvIofrqjojEYchVzzy pEmfWedMIoeRLdpU746BT IlmOopLwStVRh5V7QsNro 6THTchGywET4l pACmEDshIq0zcQdizCxiH P8fPOVesjcjv320WlSzs5 nuZTWmvFLqEXbvZPK3Z68 oi9T3CEXiMOBy QJU6wBZ1jK6bxBsoyqdis GVmdDsgdmVydGljYWwtYW sqR087WVXoqIotIoSuqRj 1A7MzTlz3HRXk lVsnQG1xaUKoKHzyQm7up RfubYqcCS6rXQMddvdcp9 86VrLud1nlYVYmrUVhJIf bAOC6C30gt7B5 DMWdQKVsPQH3iUM4oQ9ib GlnbjogbGVmdDsgdmVydG ttEOdxPAjjL706IVBwoXw nPlBhdGllbnQg XIsxJCr2W9PxTpzbfRX+P K33RHRoEX19wALfqOHqo9 jzfLr4WjHqNQYrHBM8cMo zBBjvz9BjLMLc M73ixILnc8P3VXWpoHhhw AHnEwBepVO8aK9cWQduub lwf4hdzdeqVtigu7vhzp5 7yF74Q50eATgo ZHRoPSIzMCUiIHZhbGlnb q2qpQ7wXo1+VWDxuNP8hT V5sI1hHXSuEuV4EQpgS46 9InRvcCIvPjxj e6fax5evbJi2LeZ5XWCoz cYvwIioOXW6d8NsSk00E2 9sIHdpZHRoPSIyMCUiIHZ bzSoeat1egZ9p Ii8+DMEezKY9fFA6kG2dO dLmVfL5TTpnA688NpXjzS SpOnlpX04hU2EfuFB+PHR uWzc3XAUngQxq QI7ogIBiKHjkUt1oHAY9M hQmFtQwKOhqX7PwPOJrtj zucszpkBO8FKZdKUNbeX5 9Sf7vcBodSNYg gRSQnS4hkqzhl8nxtgoyO sTmDSNhNWx2KTt0COVfnO jdPdZvLNK9XhS9HIB8hPH nhH8bdDzcooqo pD8bS3UiNKLowdzsBi41t M4qCzWrYhP7XHlvBiy+R0 pOQhASDSnyP0aKQYZZSQf NXX6RBSuqlNB+ LKGjHAL8lCqgPOgwSEDpm E2wKCHnE4w6ZlAvQbR7NR jvH6NuLZMkjkejFz81kI2 eLhHcFmY7OMfl T3FqsgR3RXFnzELoLKbuI WX9S55gl8Y4IWIuQRRkHK P8cWF9pO2noXdkydmciMV mdDsgdmVydGlj EGytHOxuW794NEGrlZbuW qQ9JhXsLzRoXBL9C6OsMx v7JEQtpTgrEJ4jkGArBMz aRf3xfCshkHlp XM5zJOUubmchFUVvsE7tT RLiaNClpCpuFH3vEEOlba hks561TkXrYVY8MWMwuPO uG3VxvS7fPtLy PMFsNAWfL4CbxOUoTPclC 119TVbtTmD6AFVldtTsG5 BcIJYaxZnpXbX5e1Y1Ja8 yMiBZZWFyczwv dGQ+DGEqADU5lJwxDGesQ KAryM4oUYDnC3x7CcQkGp J4FPnvZ8UbJTOfquxdIg1 9aN4mLpOxBlN3 UDvgO1OisbL3IGKltVTdT LrjVIM5T94yq1X6BJToID FfBRY4oYP5uY4xeNolftp gbGVmdDsgdmVy pDhfLNjwHHyiB441QGKaw DsnPkZFTUFMRTwvdGQ+PH IrZCF6mVofTFdkGBGdxQ7 lXUEbI7y3RiQc SpY7FBfcZ7AxJCKdomtjR l41kQ2mLgZeKgJ3EGiaS6 RfmjB4WPMqqZIrWPtxYNT 3J73rp5T2ZRSp PQHmJBA1aMV4oH3azJvmn jogbGVmdDsgdmVydGljYW udDHfvZ070GOAniWteLv0 NSQ15JR29H7Rs PjwvdGFibGU+PHRhYmxlI HdpZHRoPScxMDAlJyBzdH vsMT4eLl6jVCUqQRUjcEk vxBHxLfUfm6hw VVWlRLfxWH8ilFvkN1Sgx TG7MAUna1d6Hr94T62gY9 JvdXA+XQFcdSP4gYR5zY8 pPdAiWrM5HJbg S430GrUyfDUtHgere4rnw 0cxfJp9WnRuRJXlseVrjM ciRES7c1LkDn85P82jWFy pZHRoPSIyMCUi YHFzhEpelr9ppX9xJo0+P DHqcNM9oLC3iE8cFdLiCn V2AStpJ989OrEomENeHrv iH57aQ9HjaTN+ HQGtKpb7HCYunQqsSZ6fo UXgVLhtWu8kXDN6YwDrFx KyBNetM5QuHXOjxwkelaw xmJA5TDXhBFUu lH84Av7koDyfJd2iVIWxN QQ2XTYnmRPwI1YvdB7sHn UaZFHhUUBtD5AlxCYmHLt wP977RTehEdT5 GQPsvqIdB7ZkWMRvzAxgG pH7h4I0Iu1UfWnyiZCfHZ 1zOnRuSSj1C1QqBlp5MAV xoHtmXA6rlMDz MVtfYa0qpQpboFkmOY8lD OPvcbpmh196CsMmp3ejMD GiiFKtLFsxDPA3R23dx4Q 7OFQpAFZiBLM3 yBK5yM6ikBxysnvklZFbf DsgdmVydGljYWwtYWxpZ2 10LZCteVcoXbAACwj2D5F kLnx8TVXqhYzl EK8ixUFuDKnqRy4krIyuh SwxKK5hYJSmmzrqo554Uk Mww5skHLNwxNFqUOjlAEU 4G50mo0J3OGZb QHAvTUR1fFM1sD0qiHssn jogbGVmdDsgdmVydGljYW abRBrlC983OJLhvFjtBn3 UOcc2R2IpXyk0 VQKjaTojZO3raNKvOJyfD v5nvDlymNagGQ5wQHTjtv sgl406AcUde4kaYXNfbNA jPQowUIU4A79v r6O6EOUsQALxDCH4yTB8h J1stFoumjeutILefSscxw OouPvmCJllYTpwD895RWH vcDsnPlBheWVy OjwvdGQ+EB74hk56P1EzN tnaSbq0MFLxQME2eFN2dX 5wNOMnRHapk3V8qCE2H2Y owmOrob9me6bx YXB (more content not included)... Normal [facility] POCT Rapid Strepon S. pyogenes Ag IA Ql (Unsp spec) Negative Invalid Interpretation Code [facility] Comment on above: Performed By: #### [id number] #### [facility] (DEFAULT) [address] [place] [address] ALL RUBELLA IGG ABon 025 RUBELLA ANTIBODIES, IGG 1.46 Immune >0.99 index [facility] Comment on above: Non-immune <0.90 Equivocal 0.90 - 0.99 Immune >0.99 Performed at: [facility] [id number] Animal Husbandry Technician: Yvan Bolton PhD, Phone: [phone] HCV ANTIBODY RFX TO QUANT [facility] Duglas 09-08-2024 HCV AB Non-Reactive Non Reactive [facility] INTERPRETATION: Comment . [facility] Comment on above: Not infected with HC V unless early or acute infection is suspected (which may be delayed in an immunocompromised individual), or other evidence exists to indicate HCV infection. No Panel Informationon 09-08 [facility] Urinalysis macro (dipstick) panel (U)on 09-07-2024 Bilirubin, UA Positive Negative - 4(70) +++ mg/dL [facility] Comment on above: small Blood, UA Negative Negative - 50 Ivlla/mcL [facility] Clarity, UA Clear [facility] Color, UA Yellow [facility] Glucose, UA Negative Negative - 2000(110) ++++ mg/dL [facility] Interpretation and review of laboratory results Abnormal [facility] Ketones, UA Positive Negative - 160(16) ++++ mg/dL [facility] Comment on above: 15mg/dL Leukocytes, UA Trace Negative - 500+++ Pierre/mcL [facility] Nitrite, UA Negative Negative - Positive [facility] pH, UA 7.5 5 - 9 [facility] Protein, UA Positive Negative - 2000(20) ++++ mg/dL [facility] Comment on above: 30mg/dL Spec Grav, UA 1.02 1 - 1.03 [facility] Urobilinogen, UA 2.0 0.2 - 12 mg/dL [facility] Coding Summaryon 08-19-2024 Coding Summary HTMLBase 64 ArghkknpQUl0sHq+PGhlY WQ+GN5CCFGuV84lbLJvfQ 7dH3QCNWwHPgfmMTUUGXf JWdBpslOxXD2cqWHaSSHi IC8+EU0yTGWzEilziKBnk 2W5nLX1N46boe4lXGurlY L2QFFvXuMlnmpil9guaOr 6IDcuNmluOyBt NYBcxD52GVM2sG90Sk72c DKckKUkp2koaFv2GmJvVJ KsMKC3iIygRGlzq3EtTNJ bJ82lrVIgb2A1 XLAdwZwucJCdOrIxqXC5o H3fMXkmufdzc7zpcffjUy s4fo43iUHfe1M8jAM0I5P nirC7KEPonNUp JkczdMRWsM7qryrlg1xxm kqkEzRfZQRwJJg5IUp0LF JttZggGfCmGA94VPS8CKW znjEbE0IuNIYd fFvxXrE5k7G1Mo5QE2WPN dwlW2TUJYKWKXjwyUP+PC 60ov97W5DpCypjSrh7TXR lPVK0vPG2rK7p HJUfPFzzn4F7nDP7F4Gdo cCwcp2lh6giTPKrYCrlZ5 7gzQYmb1G2NMJdoSH0HEZ krIafQqUyrR51 Oyc+GFEvoPwwm8VbQeoya 3mst2jpyJl9RryvQFIcto KhuWfqCOV5j5KjUa4cGTJ gxKG3aDK6pJ9a NrIwIxD9MJgvY724ErTxb DBnVesiX99yE3FgcYZ+PH JnGbc1GXAgdWfxQN3iX0T hZGRpbmctbGVm eVrtXQ9wFUAmtyxjGSDcr F3kEDIcQ3w1GrGyUbF0AA thV7ImIOBikryoGk93tJ2 gJnEuVdU1CNkp C5UkxbA8JJYisQBeYVepB WV3S12tu5L7PZBtHOOfPZ Z3yZO3yW6nnMijcefumBU mdDsgdmVydGlj VVqvEOhzE904BETuhUsxM kNvZGluZyBEYXRlOiAgMD UvMTQvMjAyNTwvdGQ+PHR kXPE7uJjuQLYd eBKcTAicIy7gfMqawYmiU O8yFVRozvbzQKBkfD3mAB XskILaoMzvTP3oMTEknyj no405CrUrPRH6 LOYkuUDgH6QoeI4qFyCdS SMbZQRrT7QcxHUoURcgW4 67KSywVcU9MAIqouJeK8N sLWFsaWduOiB0 r2K7Id8Vr0OenmlbD2Xmu FMpIjXnBuxuSMv0W6OuIb wvdHI+FW00IBYkCB70ARe 6MSH8rZbgEGcj DLMbJ8MnzF8vIjJdUHWwI GRkOyc+PHRhYmxlIHdpZH RoPScxMDAlJyBzdHlsZT0 oBs3qPPXgZKFp qUbtnFWqJzUpe0xoSLTvR VzmYX2scSezH3LumKC8WT Adx1t7Jl56X41vJ9ShjWR +MXVbwMT7eOM7 nT6jQkEqWrU4UArmN505A oCsgOQoSvbjv8kpn3ougT g3SwP7RTOyyyIepMrlZYD 2l6ChIj96S86y IHdpZHRoPSIxNSUiIHZhb Qdvdy2ezI0dMe0+PGNvbC Q9tDI6xO2uIpAyZjN1UUb jH384BgWszTLz Geidp6lfu0cpwIx1KqEhC ZAhoqYnaUurTTG5g6NpXw 21E2TibYcyk5SeSgx0vo5 8aSGfz3Y2dOY7 L3UfVLJuyzyrpWTjqSigC U7pKWIwkomcMQEvbU9gKI LtX0h5AlXmEnE3LKbwK7B duuJ2JWUerIVj CRZngKFVtD4hbhabs8xqw zfqXjIsVFVoPGj3KSb2CW GgdQccSuFhXZU3HxL6TGF 6hKPubW1zhKco fkfulY8rDmx+PYU4gWDst WHVBW6oZoiixBW+PHRkIH V5mNffMIdwFUXmzY6kYRW zP1q8WoZfQzD6 PVfhP9HbmmO9RLHjkIFyX LZgwORYxI5atfyxq7isyw tnLsDuEHMhXKq7JNj3AGC saWduOiBsZWZ0 XhE0QAM6gZIvgO1ywNdnq ngqcN5aQgp+QmlydGggRG Z7NVw1D0PsXmb4XDEiuKj bDA8fqRXnZWur Ym6oxPwtrJgcQL4zDGIvl vhki675OfZvd4yuIFMlkL KqXGssFBP3A09dh8X9UDE eZMBwEWC0lJD8 jM8laCygyykhqFKfrJedd oLmpLbvUEjoLImuK680XS CopGczSsCtFMt9X6RyPqv 2CAIrdUrhGD5t hKWuDLooAk4tnSjtxFuaS Y3jBZLparchn865EfGmx9 nlSHUzdRByABgmFQB3L04 bg3W8QZSkBAPm YQT0pXE8pI3mtCymcpgfo GVmdDsgdmVydGljYWwtYW xyU751NWEumFpxSgAclRc 8J3CxJgt5QLSy dEsoNR2taJXfGWahKj4oa CkfwDlwIN7uSIEctxwez4 54UhHhg3sxXKRfaZTuDVe cIJC0Y04be5R2 IFRrNNBqTPB7yQL2pP5vc GlnbjogbGVmdDsgdmVydG bsOBgvMJnfT358UQJybQh nPlBhdGllbnQg INiaMNd8B6TtBuyguXS+P V17WUSuMP00pSJggXYkf1 becYh2KgAqQHBeCID5mLs fMGcru6EfCAFt X91jtGHjp0F0ZMZegCito HMaIxEitQG2iP9wYOpyju cqj8mjiytaAdlbp9bgsi5 4uJ66H80cAOnz ZHRoPSIzMCUiIHZhbGlnb q4lgO4lUj1+JTMmmIK4tE R1bL7kEGAmGlM9KMryL12 9InRvcCIvPjxj x4vlk9bcwYf7QrL3YMQiy vUgyCioKXW8q9ZkMa65E5 9sIHdpZHRoPSIyMCUiIHZ cnGhyce4jsR2n Ii8+EDHnsIH9rBK8aN4xN jLjVfZ8OYfrI658FmQsvP LzPtgrI83wT2VlqYJ+PHR nYsw3FNMhnVep KL5osHZwYNnpQx2tLLM9X wYfSyOqVLmbR6WtSSTclm ztdcigkFU7VSTbMZDkvA4 3Tp7hgEnnFXNt yESAhH6pytamy1yzjqkiU uRyOHUqCRj8AVa6HLFkrM jiUvQuJYG3YqZ0TJW4nND rbI1mhGvcfqmg rC9wU2PfNQGrtujoMq64r V9qOfOvUqC3DLcgHkj+R0 iNQlEXDHsqC8mMXJVXSJq WAI9RKMojsPW+ XQCfKWL7yAtyQWqfBVLkk O4aZDQlI7q2BbQvKpM9KC nyP1RqEXOagddjSa67rR9 hViYxWsV6LDri M3WpqgM7YOPqlLQoEXmrL WV3N01du8O2DVXrZBIjSJ W4fDC4dY8gbIspeuifxKL mdDsgdmVydGlj TSopHOquM232BOXdkLsgQ cL4QtYrDrSnRHG9K4VwGc x7BHSzoYjwSC2cxUScIKo wZn4zfIsewKas NS7vYLCprnlaISRrhH1wG JUdcITjfSsqBA2pRVQaxz upm560NtCaGMA7KYBdrSM kJ0FbvX1rUaBe XNNkHNBvB2XakQHgVDvzG 012WIlpLtN4HASabvZnA0 FvMXMwyGikHvM9s7B2Zn5 yMiBZZWFyczwv dGQ+EVXsZQA8cBqrPAdfC IQagM3nWSOtD2f9PpBnVn C2HElbF0FgHNRhkfvmDs6 5pM2mPmUeIgC1 FOloL0JisfF1QOMxbFEzX SmpESG1R84qi5Q8KIVeMW XrHXP4tAW3dJ7bpGwhxbb gbGVmdDsgdmVy gWwqEQlmUYoyB429WKJyy DsnPkZFTUFMRTwvdGQ+PH GuVEM0gNtsYLjqYJUtdY8 nSBMwY5k9UmJx UbP7DUdxX1KoOFSzvomeB x30tP7qYjQnFhP6GAweY0 ThysS4TPRujTKgLWhcIIO 7Q26xx4U3QPHe GLYuDHH9pBX1uH4scDzun jogbGVmdDsgdmVydGljYW knQEfpR870WRFfcZieCpS iVBNxIU2xaZej dGQ+OR38qq41O5IaPomjP ou5BPUhULW7pEA8vQ6eHO NeATojg1Y2iKA1A2OdaoP exl2zt5vhOKRy RUezN58noCZhl2O6POBjk EF0WXLmhPxyHcPpaN19Ej c+GXAqrBwqr8VhYalgl6d am8ypuOd9RzRd SOGxziCddRwtQZK4x9QyB b62Q74jMKunUEDfOXTkWE VxMCZcdChuga5veZ1nOv2 +XFEhhRZ4hFS2 dA0qPnYpUtX3JCcbI052A nPojRFdCpisj5iqq7smwM z7VxTxZQXpjvWspDgxKEW 5w8CsUe97S5Oz pRqve5XqPiw7gl35kSZkp 9W4fFX7U0AkYGRguhqhjY XayBotFX4qZYVxgaaqJMC pjI2hIETrQ8m3 JyAoWiE2PBdhF6RldfF1F JDeqWZoTBAnjYWOjU5meg pdu3vnjgthGmWfAUNsXVj 8RTp9FCVxxHsm QrKdLRC9MgG7YAI3eIEkv H7slXrxxfatwR4nUrw+UG v6b8tetWPyOJ8jwFQ4NO2 3RJ96bYIxm4N6 rIP8K5MmMOVeeppwhpgkq UX2UFJlOHUuaE90Mi6zeK tzJs7nWPWnOIU3UEHyeHQ kD5DabQ4cTiBz WAEuHYTtB6EmkRXgRZwwX 041IDdtQtO3SSCxytNvF3 DjRCNamFwsFxS7e3I6Bf2 RXG40XA98ER78 vKEjf3Q3nTT4F1IzRDIix deqlagdkGI5MLYbCMQmiD 42Pn6hxKluPy9gGYTlCTF 3DFAnyLSmW5Vb kJ5eLmNjHIYzISMzM5Tfy EOrVBjiJ508LXyiVoP8DY FnmqZnR8OnEKJgcOslVxE 1l6S7Bu2WWi28 YF37PS29rMKsc7B6aJF5A 5OzPRXctvskfwmsfWY6TZ MbCRMbmI67Bg0hiCecPn2 jNIOmKXD3RDGk xFIvG3OwuM0lDjWrWPGwE USbW0ResDRfOYakZ277LR zaFbQ4NSArisKuB0XbYWS ghOhjRgV2l7K6 Yt5HZNekxqp6X5QyTappm HI+PA56SMDsCS11vSOiiN Crd7falQz4EoUfLRPaPOM 4zAcjJQzqc9Wd ZXI (more content not included)... Normal [facility] BOX TESTon 08-18-2024 BOX TEST SENT OUT [employer] [facility] BOX1 [employer] [facility] BOX2 08/18/24 [facility] C Urineon 08-13-2024 C Urine Urine Culture ordere d as a result of parameters set on specific urine dip and urine microsopic results. Mixed skin, or urogenital jonny. Clinically insignificant Normal [facility] Comment on above: Performed By: #### 1 [id number], 4199203, 53676784 #### [facility] (DEFAULT) [address] [place] [address] .Auto Diff 108-11-2024 Auto Geary % 7 % Normal -12 [facility] Comment on above: Performed By: #### 1 [id number], 2806472, 81328698, 5498627 ####[facility] (DEFAULT)[address] [place] [address] 22419 Baso Abs# 0.1 x10 Normal 0.0-0.2 [facility] Comment on above: Performed By: #### 1 [id number], 3282779, 08808773, 7337792 ####[facility] (DEFAULT)[address] [place] [address] 71103 Basophils/100 WBC (Bld) 0.7 % Normal 0.2-2.0 [facility] Comment on above: Performed By: #### 1 [id number], 8595249, 68311749, 5000600 ####[facility] (DEFAULT)[address] [place] [address] 97485 Eos Abs# 0.0 x10 Normal 0.0-0.4 [facility] Comment on above: Performed By: #### 1 [id number], 6198992, 36462906, 4447935 ####[facility] (DEFAULT)[address] [place] [address] 89138 Eosinophils/100 WBC (Bld) 0.4 % Low 0.9-4.0 [facility] Comment on above: Performed By: #### 1 [id number], 3137903, 70585868, 4984114 ####[facility] (DEFAULT)[address] [place] [address] 66115 Lymph Abs# 2.5 x10 Normal 1.3-2.9 [facility] Comment on above: Performed By: #### 1 [id number], 6422928, 21165240, 7285241 ####[facility] (DEFAULT)[address] [place] [address] 00003 Lymphocytes/100 WBC (Bld) 23 % Normal 14-48 [facility] Comment on above: Performed By: #### 1 [id number], 4902346, 66472098, 4480300 ####[facility] (DEFAULT)[address] [place] [address] 56020 Geary Abs# 0.7 x10 Normal 0.0-0.8 [facility] Comment on above: Performed By: #### 1 [id number], 8113333, 69046750, 9978038 ####[facility] (DEFAULT)[address] [place] [address] 70296 Neut Abs# 7.3 x10 Normal 1.5-9.2 [facility] Comment on above: Performed By: #### 1 [id number], 8004329, 53021553, 9832678 ####[facility] (DEFAULT)[address] [place] [address] 12495 Neutrophils/100 WBC (Bld) 69 % Normal 44-88 [facility] Comment on above: Performed By: #### 1 [id number], 7105919, 23636749, 2873901 ####[facility] (DEFAULT)[address] [place] [address] CBC w/ Auto Diffon 5 Erythrocyte distribution width (RBC) [Ratio] 14.0 % Normal 11.5-15.0 [facility] Comment on above: Performed By: #### 1 [id number], 6301684, 10531874, 9855873 ####[facility] (DEFAULT)[address] [place] [address] Hematocrit (Bld) [Volume fraction] 40.0 % Normal 33.7-40.4 [facility] Comment on above: Performed By: #### 1 [id number], 7804428, 87752352, 8987489 ####[facility] (DEFAULT)[address] [place] [address] Hemoglobin (Bld) [Mass/Vol] 13.4 g/dL Normal 11.3-15.9 [facility] Comment on above: Performed By: #### 1 [id number], 2719759, 65943831, 5865285 ####[facility] (DEFAULT)[address] [place] [address] Man Diff? Auto Invalid Interpretation Code [facility] Comment on above: Performed By: #### 1 [id number], 8250156, 15817902, 3655317 ####[facility] (DEFAULT)[address] [place] [address] MCH (RBC) [Entitic mass] 27 pg Normal 24-34 [facility] Comment on above: Performed By: #### 1 [id number], 7443237, 62799130, 7036720 ####[facility] (DEFAULT)[address] [place] [address] MCHC (RBC) [Mass/Vol] 34 g/dL Normal 26-37 [facility] Comment on above: Performed By: #### 1 [id number], 8069827, 67874047, 6996108 ####[facility] (DEFAULT)[address] [place] [address] MCV (RBC) [Entitic vol] 82 fL Normal 81-100 [facility] Comment on above: Performed By: #### 1 [id number], 3296652, 57591994, 5952476 ####[facility] (DEFAULT)[address] [place] [address] Platelet 378 x10 Normal 138-427 [facility] Comment on above: Performed By: #### 1 749173871, 8592398, 22718624, 1222517 ####[facility] (DEFAULT)[address] [place] [address] Platelet mean volume (Bld) [Entitic vol] 8.6 fL Normal 6.3-10.2 [facility] Comment on above: Performed By: #### 1 [id number], 7926840, 72422223, 6823348 ####[facility] (DEFAULT)[address] [place] [address] RBC 4.88 x10 Normal 3.70-5.30 [facility] Comment on above: Performed By: #### 1 503950297, 5074727, 42791100, 7165833 ####[facility] (DEFAULT)[address] [place] [address] WBC 10.7 x10 High 3.5-10.5 [facility] Comment on above: Performed By: #### 1 [id number], 9868584, 07063960, 7772698 ####[facility] (DEFAULT)[address] [place] [address] CMP Standardon 08-11-2024 eGFR Non AA >60 Invalid Interpretation Code [facility] Comment on above: Performed By: #### 1 [id number], 4642427, 68779592, 2714863 ####[facility] (DEFAULT)[address] [place] [address] eGFR AA >60 Invalid Interpretation Code [facility] Comment on above: Performed By: #### 1 [id number], 6807320, 34870497, 6965687 ####[facility] (DEFAULT)[address] [place] [address] Albumin [Mass/Vol] 3.9 g/dL Normal 3.5-5.0 [facility] Comment on above: Performed By: #### 1 [id number], 4214602, 89681181, 2134862 ####[facility] (DEFAULT)[address] [place] [address] Albumin/Globulin [Mass ratio] 1.0 {ratio} Low 1.4-2.6 [facility] Comment on above: Performed By: #### 1 248401873, 4627857, 81671104, 5527445 ####[facility] (DEFAULT)[address] [place] [address] Alk Phos 77 IU/L Normal 32-91 [facility] Comment on above: Performed By: #### 1 [id number], 5983885, 58041555, 3953132 ####[facility] (DEFAULT)[address] [place] [address] ALT [Catalytic activity/Vol] 25.0 U/L Normal 14.0-54.0 [facility] Comment on above: Performed By: #### 1 [id number], 1264905, 62561159, 8900164 ####[facility] (DEFAULT)[address] [place] [address] Anion gap [Moles/Vol] 13.8 mmol/L Normal 5.0-19.0 [facility] Comment on above: Performed By: #### 1 169429448, 4706769, 32869022, 9933453 ####[facility] (DEFAULT)[address] [place] [address] AST [Catalytic activity/Vol] 21 U/L Normal 15-41 [facility] Comment on above: Performed By: #### 1 [id number], 1252377, 80124448, 6870629 ####[facility] (DEFAULT)[address] [place] [address] Bili Total 0.7 mg/dL Normal 0.3-1.2 [facility] Comment on above: Performed By: #### 1 031482868, 6938028, 85194916, 2870634 ####[facility] (DEFAULT)[address] [place] [address] 59472 Calcium [Mass/Vol] 9.2 mg/dL Normal 8.9-10.3 [facility] Comment on above: Performed By: #### 1 732230489, 4925073, 31125708, 1551594 ####[facility] (DEFAULT)[address] [place] [address] 34009 Chloride [Moles/Vol] 105 mmol/L Normal 101-111 [facility] Comment on above: Performed By: #### 1 126766964, 8820200, 92326884, 8390776 ####[facility] (DEFAULT)[address] [place] [address] 27743 CO2 [Moles/Vol] 21 mmol/L Normal 21-32 [facility] Comment on above: Performed By: #### 1 079123928, 1488603, 57936681, 1019741 ####[facility] (DEFAULT)[address] [place] [address] 99600 Creatinine [Mass/Vol] 0.55 mg/dL Low 0.60-1.30 [facility] Comment on above: Performed By: #### 1 156139635, 6089941, 42127089, 6279273 ####[facility] (DEFAULT)[address] [place] [address] 98922 Globulin (S) [Mass/Vol] 3.7 g/dL Normal 1.5-4.3 [facility] Comment on above: Performed By: #### 1 595852670, 3255541, 69586087, 9841936 ####[facility] (DEFAULT)[address] [place] [address] 12881 Glucose [Mass/Vol] 92.0 mg/dL Normal 74.0-118.0 [facility] Comment on above: Performed By: #### 1 188014205, 6096314, 72891249, 9929234 ####[facility] (DEFAULT)[address] [place] [address] 80721 Osmolality 270 mOsm/L Invalid Interpretation Code [facility] Comment on above: Performed By: #### 1 [id number], 4839558, 48679297, 8113825 ####[facility] (DEFAULT)[address] [place] [address] 86508 Potassium [Moles/Vol] 3.8 mmol/L Normal 3.6-5.1 [facility] Comment on above: Performed By: #### 1 836427808, 4324098, 93646846, 7797412 ####[facility] (DEFAULT)[address] [place] [address] 84690 Protein [Mass/Vol] 7.6 g/dL Normal 6.5-8.1 [facility] Comment on above: Performed By: #### 1 283943288, 3323143, 23716441, 1481840 ####[facility] (DEFAULT)[address] [place] [address] 66650 Sodium [Moles/Vol] 136.0 mmol/L Normal 136.0-144.0 [facility] Comment on above: Performed By: #### 1 007713263, 1282353, 36625019, 0213748 ####[facility] (DEFAULT)[address] [place] [address] 03708 Urea nitrogen [Mass/Vol] 8 mg/dL Normal 8-26 [facility] Comment on above: Performed By: #### 1 602134587, 6986261, 56852516, 4846587 ####[facility] (DEFAULT)[address] [place] [address] 44911 Urea nitrogen/Creatinine [Mass ratio] 14.5 mg/mg Normal 4.6-16.2 [facility] Comment on above: Performed By: #### 1 478929363, 9950251, 86573674, 5307363 ####[facility] (DEFAULT)[address] [place] [address] 14272 UA Foygr3zx 08-11-2024 UA Bacteria 1+ Normal [facility] Comment on above: Order Comment: Urina lysis Microscopic order added on by [employer] system. Performed By: #### 1 508657485, 9351101, 50937824 #### [facility] (DEFAULT) [address] [place] [address] 52072 UA RBC 0-2 Normal [facility] Comment on above: Order Comment: Urina lysis Microscopic order added on by [employer] system. Performed By: #### 1 [id number], 6654049, 35576452 #### [facility] (DEFAULT) [address] [place] [address] UA Squam Epi None Seen [facility] Comment on above: Order Comment: Urina lysis Microscopic order added on by [employer] system. Performed By: #### 1 055370875, 3397774, 47127384 #### [facility] (DEFAULT) [address] [place] [address] UA Urothelial Cells Moderate Abnormal None Seen [facility] Comment on above: Order Comment: Urina lysis Microscopic order added on by [employer] system. Performed By: #### 1 522966940, 6576561, 80182512 #### [facility] (DEFAULT) [address] [place] [address] UA WBC 0-2 Normal [facility] Comment on above: Order Comment: Urina lysis Microscopic order added on by [employer] system. Performed By: #### 1 840460162, 0222538, 27364914 #### [facility] (DEFAULT) [address] [place] [address] UA w Culture if Ind Standard on 08-11-2024 Breakpoint UA [facility] Comment on above: Performed By: #### 1 [id number], 5010520, 49021405 #### [facility] (DEFAULT) [address] [place] [address] Color (U) Dark Yellow [facility] Comment on above: Performed By: #### 1 451744758, 0576325, 59582219 #### [facility] (DEFAULT) [address] [place] [address] Culture? Indicated Invalid Interpretation Code [facility] Comment on above: Result Comment: Resu lt created by rule GL_MAGR_ADD_UA_CULT Result created by rule GL_MAGR_ADD_UA_CULT Result created by rule GL_MAGR_ADD_UA_CULT Performed By: #### 1 [id number], 7907099, 49805124 #### [facility] (DEFAULT) [address] [place] [address] 67693 Glucose (U) [Mass/Vol] Negative Normal [facility] Comment on above: Performed By: #### 1 440520557, 6967558, 82303218 #### [facility] (DEFAULT) [address] [place] [address] 66141 Ketones Ql (U) >=80 Normal [facility] Comment on above: Performed By: #### 1 697649303, 3240893, 90738832 #### [facility] (DEFAULT) [address] [place] [address] 23162 Micro? Indicated Invalid Interpretation Code [facility] Comment on above: Result Comment: Resu lt created by rule GL_MAGR_ADD_UA_MICRO Performed By: #### 1 [id number], 1238167, 48594953 #### [facility] (DEFAULT) [address] [place] [address] 03619 UA Bilirubin SMALL Abnormal [facility] Comment on above: Performed By: #### 1 766248822, 5542616, 82544914 #### [facility] (DEFAULT) [address] [place] [address] 07312 UA Blood Negative Normal [facility] Comment on above: Performed By: #### 1 050668994, 5887892, 13190461 #### [facility] (DEFAULT) [address] [place] [address] 29679 UA Clarity CLEAR Normal CLEAR [facility] Comment on above: Performed By: #### 1 659056987, 6425908, 01040690 #### [facility] (DEFAULT) [address] [place] [address] 25195 UA Leuk Est TRACE Abnormal NEGATIVE [facility] Comment on above: Performed By: #### 1 538448672, 1324862, 74110190 #### [facility] (DEFAULT) [address] [place] [address] 32195 UA Nitrite Negative Normal NEGATIVE [facility] Comment on above: Performed By: #### 1 916940123, 6306667, 37627530 #### [facility] (DEFAULT) [address] [place] [address] 15390 UA pH 7.0 Normal 5-8 [facility] Comment on above: Performed By: #### 1 758599981, 5565528, 46616068 #### [facility] (DEFAULT) [address] [place] [address] 67610 UA Protein 30 Abnormal NEGATIVE [facility] Comment on above: Performed By: #### 1 516721379, 2401008, 78783169 #### [facility] (DEFAULT) [address] [place] [address] 48157 UA Spec Grav 1.015 Normal 1.001-1.035 [facility] Comment on above: Performed By: #### 1 470865577, 0205679, 61572658 #### [facility] (DEFAULT) [address] [place] [address] 76814 UA Urobilinogen 4.0 mg/dL Abnormal 0.2-1.0 [facility] Comment on above: Performed By: #### 1 059438969, 2791024, 31483089 #### [facility] (DEFAULT) [address] [place] [address] Urine Source Clean Catch Normal [facility] Comment on above: Performed By: #### 1 081468029, 0203001, 70077509 #### [facility] (DEFAULT) [address] [place] [address] 75917 hCG Quantitativeon hCG Quantitative 893054.0 mIU/mL High 0.0-0.6 [facility] Comment on above: Result Comment: Resu lt Confirmed by Dilution Post-Menopausal Reference Range is: 0.1-11.6 mIU/mL Performed By: #### 1 [id number], 2651070, 90516745, 2337747 ####[facility] (DEFAULT)[address] [place] [address] 20630 HCG ( test) Ql (U)o n 08-06-2024 Interpretation and review of laboratory results Abnormal [facility] Preg Test, Ur Positive Negative [facility] OB TRANSVAGINALon 025 US OB TRANSVAGINAL TITLE OF EXAM: OB Ultrasound: [...] report is generated using voice recognition reporting ([employer]). On occasion [employer] erroneously drops words from the report or [...] UA Positive Negative - 4(70) +++ mg/dL [facility] Comment on above: small Blood, UA Positive Negative - 50 Villa/mcL [facility] Comment on above: Trace-intact Clarity, UA Clear [facility] Color, UA Yellow [facility] Glucose, UA Negative Negative - 2000(110) ++++ mg/dL [facility] Interpretation and review of laboratory results Abnormal [facility] Ketones, UA Positive Negative - 160(16) ++++ mg/dL [facility] Comment on above: 80mg/dL Leukocytes, UA Trace Negative - 500+++ Pierre/mcL [facility] Nitrite, UA Negative Negative - Positive [facility] pH, UA 6.5 5 - 9 [facility] Protein, UA Positive Negative - 2000(20) ++++ mg/dL [facility] Comment on above: 100mg/dL Spec Grav, UA 1.025 1 - 1.03 [facility] Urobilinogen, UA 1.0 0.2 - 12 mg/dL [facility] CBC WITH AUTO DIFFERENTIALon 08-03-2024 BASOPHILS ABSOLUTE COUNT (10*3/UL) BY AUTOMATED COUNT 0.1 10*3/uL Normal [facility] Comment on above: Performed By: #### 2 106-3 #### [facility] ([id number]) [address] [place] [address] 48693 BASOPHILS RELATIVE PERCENT BY AUTOMATED COUNT 0.7 % Normal [facility] Comment on above: Performed By: #### 2 106-3 #### [facility] ([id number]) [address] [place] [address] 65327 CELLAVISION DIFFERENTIAL TYPE AUTOMATED DIFFERENTIAL Normal [facility] Comment on above: Performed By: #### 2 106-3 #### [facility] ([id number]) [address] [place] [address] 72241 Eosinophils (Bld) [#/Vol] 0.0 10*3/uL Normal [facility] Comment on above: Performed By: #### 2 106-3 #### [facility] ([id number]) [address] [place] [address] 36128 EOSINOPHILS RELATIVE PERCENT BY AUTOMATED COUNT 0.2 % Normal [facility] Comment on above: Performed By: #### 2 106-3 #### [facility] ([id number]) [address] [place] [address] 40067 Erythrocyte distribution width (RBC) [Ratio] 14.2 % Normal 11.5-15 [facility] Comment on above: Performed By: #### 2 106-3 #### [facility] ([id number]) [address] [place] [address] 47906 Hematocrit (Bld) [Volume fraction] 40.0 % Normal 35-47 [facility] Comment on above: Performed By: #### 2 106-3 #### [facility] ([id number]) [address] [place] [address] 69655 Hemoglobin (Bld) [Mass/Vol] 13.4 g/dL Normal 11.7-15.5 [facility] Comment on above: Performed By: #### 2 106-3 #### [facility] ([id number]) [address] [place] [address] 59129 LYMPHOCYTES ABSOLUTE COUNT (10*3/UL) BY AUTOMATED COUNT 2.8 10*3/uL Normal [facility] Comment on above: Performed By: #### 2 106-3 #### [facility] ([id number]) [address] [place] [address] 83745 LYMPHOCYTES RELATIVE PERCENT BY AUTOMATED COUNT 23.8 % Normal [facility] Comment on above: Performed By: #### 2 106-3 #### [facility] ([id number]) [address] [place] [address] 72561 MCH (RBC) [Entitic mass] 27.5 pg Normal 27-34 [facility] Comment on above: Performed By: #### 2 106-3 #### [facility] ([id number]) [address] [place] [address] 10038 MCHC (RBC) [Mass/Vol] 33.5 g/dL Normal 32-36 [facility] Comment on above: Performed By: #### 2 106-3 #### [facility] ([id number]) [address] [place] [address] 78978 MCV (RBC) [Entitic vol] 82 fL Normal 80-100 [facility] Comment on above: Performed By: #### 2 106-3 #### [facility] ([id number]) [address] [place] [address] 17289 MONOCYTES ABSOLUTE COUNT (10*3/UL) BY AUTOMATED COUNT 0.9 10*3/uL Normal [facility] Comment on above: Performed By: #### 2 106-3 #### [facility] ([id number]) [address] [place] [address] 95383 MONOCYTES RELATIVE PERCENT BY AUTOMATED COUNT 7.7 % Normal [facility] Comment on above: Performed By: #### 2 106-3 #### [facility] ([id number]) [address] [place] [address] 73326 NEUTROPHILS ABSOLUTE COUNT BY AUTOMATED COUNT 8.0 10*3/uL Normal [facility] Comment on above: Performed By: #### 2 106-3 #### [facility] ([id number]) [address] [place] [address] 45406 NEUTROPHILS RELATIVE PERCENT BY AUTOMATED COUNT 67.6 % Normal [facility] Comment on above: Performed By: #### 2 106-3 #### [facility] ([id number]) [address] [place] [address] 72172 Platelet mean volume (Bld) [Entitic vol] 9.1 fL Normal 7-12 [facility] Comment on above: Performed By: #### 2 106-3 #### [facility] ([id number]) [address] [place] [address] 98009 Platelets (Bld) [#/Vol] 400 10*3/uL Normal 150-450 [facility] Comment on above: Performed By: #### 2 106-3 #### [facility] ([id number]) [address] [place] [address] 00817 RBC COUNT 4.88 X10E12/L Normal 3.8-5.2 [facility] Comment on above: Performed By: #### 2 106-3 #### [facility] ([id number]) [address] [place] [address] 94409 WBC (Bld) [#/Vol] 11.8 10*3/uL High 4-11 [facility] Comment on above: Performed By: #### 2 106-3 #### [facility] ([id number]) [address] [place] [address] 72200 COMPREHENSIVE METABOLIC PANE Alex 08-03-2024 Albumin [Mass/Vol] 4.2 g/dL Normal 3.2-5.3 [facility] Comment on above: Performed By: #### 2 106-3 #### [facility] ([id number]) [address] [place] [address] 23647 ALP [Catalytic activity/Vol] 90 U/L Normal 39-130 [facility] Comment on above: Performed By: #### 2 106-3 #### [facility] ([id number]) [address] [place] [address] 96247 ALT [Catalytic activity/Vol] 16 U/L Normal <=31 [facility] Comment on above: Result Comment: R-Sp ecimen hemolyzed, results increased Performed By: #### 2 106-3 #### [facility] ([id number]) [address] [place] [address] 12108 Anion gap [Moles/Vol] 9 mmol/L Normal 5-15 [facility] Comment on above: Performed By: #### 2 106-3 #### [facility] ([id number]) [address] [place] [address] 79176 AST [Catalytic activity/Vol] 27 U/L Normal <=41 [facility] Comment on above: Result Comment: R-Sp ecimen hemolyzed, results increased Performed By: #### 2 106-3 #### [facility] ([id number]) [address] [place] [address] 59420 Bilirubin [Mass/Vol] 1.2 mg/dL Normal 0.3-1.2 [facility] Comment on above: Result Comment: R-Re sults questionable due to hemolysis Performed By: #### 2 106-3 #### [facility] ([id number]) [address] [place] [address] 96515 Calcium [Mass/Vol] 9.2 mg/dL Normal 8.5-10.5 [facility] Comment on above: Performed By: #### 2 106-3 #### [facility] ([id number]) [address] [place] [address] 30772 Chloride [Moles/Vol] 103 mmol/L Normal 98-109 [facility] Comment on above: Performed By: #### 2 106-3 #### [facility] ([id number]) [address] [place] [address] 06080 CO2 [Moles/Vol] 22 mmol/L Normal 22-32 [facility] Comment on above: Performed By: #### 2 106-3 #### [facility] ([id number]) [address] [place] [address] 28235 Creatinine [Mass/Vol] 0.70 mg/dL Normal 0.40-1.00 [facility] Comment on above: Result Comment: METH OD TRACEABLE TO IDMS STANDARD Performed By: #### 2 106-3 #### [facility] ([id number]) [address] [place] [address] 35757 EGFR (CKD-EPI) NON-RACE DEPENDENT >^90 Normal >=60 [facility] Comment on above: Result Comment: Repo rted eGFR is based on the CKD-EPI 2020 equation that does not use a race coefficient. Performed By: #### 2 106-3 #### [facility] ([id number]) [address] [place] [address] 66038 Glucose [Mass/Vol] 86 mg/dL Normal 65-99 [facility] Comment on above: Performed By: #### 2 106-3 #### [facility] ([id number]) [address] [place] [address] 87741 Potassium [Moles/Vol] 4.2 mmol/L Normal 3.5-5.0 [facility] Comment on above: Result Comment: R-Sp ecimen hemolyzed, results increased Performed By: #### 2 106-3 #### [facility] ([id number]) [address] [place] [address] 51026 Protein [Mass/Vol] 8.1 g/dL High 6.0-8.0 [facility] Comment on above: Performed By: #### 2 106-3 #### [facility] ([id number]) [address] [place] [address] 86324 Sodium [Moles/Vol] 134 mmol/L Normal 134-146 [facility] Comment on above: Performed By: #### 2 106-3 #### [facility] ([id number]) [address] [place] [address] 17033 Urea nitrogen [Mass/Vol] 9 mg/dL Normal 5-23 [facility] Comment on above: Performed By: #### 2 106-3 #### [facility] ([id number]) [address] [place] [address] [place] [address] ER EXTRA URINEon 08-03-2024 ER EXTRA URINE ERU ER EXTRA URINE Cancelled Normal [facility] Comment on above: Order Comment: A ext ra urine specimen no testing is needed MAGNESIUMon 08-03-2024 Magnesium [Mass/Vol] 2.1 mg/dL Normal 1.8-2.6 [facility] Comment on above: Result Comment: R-Sp ecimen hemolyzed, results increased Performed By: #### 2 106-3 #### [facility] ([id number]) [address] [place] [address] 92008 POCT NURSING URINE MACROSCOP IC UAon 08-03-2024 BILIRUBIN NEHA Small Abnormal Negative [facility] Comment on above: Performed By: #### 2 106-3 #### [facility] ([id number]) [address] [place] [address] 10423 BLOOD/HGB NEHA Small Abnormal Negative [facility] Comment on above: Performed By: #### 2 106-3 #### [facility] ([id number]) [address] [place] [address] 72102 GLUCOSE NEHA Negative Normal Negative [facility] Comment on above: Performed By: #### 2 106-3 #### [facility] ([id number]) [address] [place] [address] 27175 KETONES NEHA 15 mg/dL Abnormal Negative [facility] Comment on above: Performed By: #### 2 106-3 #### [facility] ([id number]) [address] [place] [address] 91111 LEUKOCYTE ESTERASE NEHA Negative Normal Negative [facility] Comment on above: Performed By: #### 2 106-3 #### [facility] ([id number]) [address] [place] [address] 11298 NITRITE NEHA Negative Normal Negative [facility] Comment on above: Performed By: #### 2 106-3 #### [facility] ([id number]) [address] [place] [address] 09232 PH NEHA 7.0 Normal 5.0, 6.0, 6.5, 7.0, 7.5, 8.0, 8.5, 5.5 [facility] Comment on above: Performed By: #### 2 106-3 #### [facility] ([id number]) [address] [place] [address] 11125 PROTEIN NEHA 100 mg/dL Abnormal Negative [facility] Comment on above: Performed By: #### 2 106-3 #### [facility] ([id number]) [address] [place] [address] 86506 SPECIFIC GRAVITY NEHA 1.025 Abnormal (none) [facility] Comment on above: Performed By: #### 2 106-3 #### [facility] ([id number]) [address] [place] [address] 90173 UROBILINOGEN NEHA 1.0 E.U./dL Normal 0.2 E.U./dL , 1.0 E.U./dL [facility] Comment on above: Performed By: #### 2 106-3 #### [facility] ([id number]) [address] [place] [address] 34733 POCT , URINE (NUCG) on 08-03-2024 Beta HCG ( test) Ql (U) Positive Abnormal Negative [facility] Comment on above: Performed By: #### 2 106-3 #### [facility] ([id number]) [address] [place] [address] 57136 US PREG LESS THAN 14 WKS SIN GLEon 08-03-2024 US PREG LESS THAN 14 WKS SINGLE US PREG LESS THAN 14 WKS SINGLE US PREG LESS THAN 14 WKS SINGLE CLINICAL INDICATION: vomiting FINDINGS: limited transabdominal ultrasound of the pelvis. UTERUS AND GESTATIONAL SAC: Intrauterine gestation: Single. Gestational sac: Intrauterine. Yolk sac: 0.3 cm [place]-rump length (CRL): 1.6 cm heart motion: 174 [...] Brett Gutierrez on 08/03/2024 12:52 PM Normal [facility] COMPREHENSIVE METABOLIC PANE Alex 07-20-2024 Albumin [Mass/Vol] 4.2 g/dL Normal 3.2-5.3 [facility] Comment on above: Performed By: #### N UM #### [facility] ([id number]) [address] [place] [address] 93316 ALP [Catalytic activity/Vol] 95 U/L Normal 39-130 [facility] Comment on above: Performed By: #### N UM #### [facility] ([id number]) [address] [place] [address] 86879 ALT [Catalytic activity/Vol] 19 U/L Normal 0-31 [facility] Comment on above: Performed By: #### N UM #### [facility] ([id number]) [address] [place] [address] 43521 Anion gap [Moles/Vol] 11 mmol/L Normal 5-15 [facility] Comment on above: Performed By: #### N UM #### [facility] ([id number]) [address] [place] [address] 22673 AST [Catalytic activity/Vol] 19 U/L Normal 0-41 [facility] Comment on above: Performed By: #### N UM #### [facility] ([id number]) [address] [place] [address] 41471 Bilirubin [Mass/Vol] 0.5 mg/dL Normal 0.3-1.2 [facility] Comment on above: Performed By: #### N UM #### [facility] ([id number]) [address] [place] [address] 89839 Calcium [Mass/Vol] 9.2 mg/dL Normal 8.5-10.5 [facility] Comment on above: Performed By: #### N UM #### [facility] ([id number]) [address] [place] [address] 04910 Chloride [Moles/Vol] 104 mmol/L Normal 98-109 [facility] Comment on above: Performed By: #### N UM #### [facility] ([id number]) [address] [place] [address] 55173 CO2 [Moles/Vol] 20 mmol/L Low 22-32 [facility] Comment on above: Performed By: #### N UM #### [facility] ([id number]) [address] [place] [address] 83560 Creatinine [Mass/Vol] 0.68 mg/dL Normal 0.40-1.00 [facility] Comment on above: Result Comment: METH OD TRACEABLE TO IDMS STANDARD Performed By: #### N UM #### [facility] ([id number]) [address] [place] [address] 29152 eGFR (CKD-EPI) NON-RACE DEPENDENT >90 Normal >59 [facility] Comment on above: Result Comment: Reported eGFR is based on the CKD-EPI 2020 equation that does not use a race coefficient. Performed By: #### N UM #### [facility] ([id number]) [address] [place] [address] 32495 Glucose [Mass/Vol] 81 mg/dL Normal 65-99 [facility] Comment on above: Performed By: #### N UM #### [facility] ([id number]) [address] [place] [address] 08328 Potassium [Moles/Vol] 4.7 mmol/L Normal 3.5-5.0 [facility] Comment on above: Performed By: #### N UM #### [facility] ([id number]) [address] [place] [address] 55505 Protein [Mass/Vol] 7.9 g/dL Normal 6.0-8.0 [facility] Comment on above: Performed By: #### N UM #### [facility] ([id number]) [address] [place] [address] 24188 Sodium [Moles/Vol] 135 mmol/L Normal 134-146 [facility] Comment on above: Performed By: #### N UM #### [facility] ([id number]) [address] [place] [address] 24902 Urea nitrogen [Mass/Vol] 10 mg/dL Normal 5-23 [facility] Comment on above: Performed By: #### N UM #### [facility] ([id number]) [address] [place] [address] 18800 HCG ( test) Ql (U)o n 07-20-2024 Beta HCG ( test) Ql (U) Positive Abnormal NEG [facility] Comment on above: Performed By: #### 2 106-3 #### [facility] ([id number]) [address] [place] [address] 16658 HCG.beta subunit IA 3rd IS Q non 07-20-2024 [place] [address] m[IU]/mL Normal P [facility] Comment on above: Result [...] trophoblastic or nontrophoblastic neoplasms. Performed By: #### N UM #### [facility] ([id number]) [address] [place] [address] 40689 LIPASEon 07-20-2024 Lipase [Catalytic activity/Vol] 31 U/L Normal 17-40 [facility] Comment on above: Performed By: #### N UM #### [facility] ([id number]) [address] [place] [address] 10683 URINE CULTUREon 07-20-2024 Bacteria identified Cx Nom (U) CULTURE RESULTS >100,000 ORGANISMS/ML NORMAL UROGENITAL JONNY Normal [facility] Comment on above: Performed By: #### 2 106-3 #### [facility] ([id number]) [address] [place] [address] 88822 URN MACROSCOPIC NURon 2024 BILIRUBIN NEHA Negative Normal NEG [facility] Comment on above: Performed By: #### N UM #### [facility] ([id number]) [address] [place] [address] 79400 BLOOD/HGB NEHA Negative Normal NEG [facility] Comment on above: Performed By: #### N UM #### [facility] ([id number]) [address] [place] [address] 76315 GLUCOSE NEHA Negative Normal NEG [facility] Comment on above: Performed By: #### N UM #### [facility] ([id number]) [address] [place] [address] 05317 KETONES NEHA 15 mg/dL Abnormal NEG [facility] Comment on above: Performed By: #### N UM #### [facility] ([id number]) [address] [place] [address] 72009 LEUKOCYTE ESTERASE NEHA Negative Normal NEG [facility] Comment on above: Performed By: #### N UM #### [facility] ([id number]) [address] [place] [address] 11890 NITRITE NEHA Negative Normal NEG [facility] Comment on above: Performed By: #### N UM #### [facility] ([id number]) [address] [place] [address] 38243 PH NEHA 7.0 Normal 5.0-8.5 [facility] Comment on above: Performed By: #### N UM #### [facility] ([id number]) [address] [place] [address] 02494 PROTEIN NEHA Negative Normal NEG [facility] Comment on above: Performed By: #### N UM #### [facility] ([id number]) [address] [place] [address] 29307 SPECIFIC GRAVITY NEHA 1.020 Normal 1.003-1.035 [facility] Comment on above: Performed By: #### N UM #### [facility] ([id number]) [address] [place] [address] 18475 UROBILINOGEN NEHA 0.2 eu/dL Normal <1.1 [facility] Comment on above: Performed By: #### N UM #### [facility] ([id number]) [address] [place] [address] 48107 TBH PREG QUANT HCGon -28-2 025 HCG QUANTITATIVE 59 mIU/mL [facility] Comment on above: 5-50 0.2-1 WEEK 50-500 1-2 WEEKS 100-5,000 2-3 WEEKS 500-10,000 3-4 WEEKS 1,000-50,000 4-5 WEEKS 10,000-100,000 5-6 WEEKS 15,000-200,000 6-8 WEEKS 10,000-100,000 [facility] HCGon 025 HCG QUANTITATIVE 22 mIU/mL [facility] Comment on above: 5-50 0.2-1 WEEK 50-500 1-2 WEEKS 100-5,000 2-3 WEEKS 500-10,000 3-4 WEEKS 1,000-50,000 4-5 WEEKS 10,000-100,000 5-6 WEEKS 15,000-200,000 6-8 WEEKS 10,000-100,000 2-[address] [facility] Coding Summaryon 06-11-2024 Coding Summary HTMLBase 64 OgguuzhvBRe4uEd+PGhlY WQ+BD3YGXEaO58alSDhcI 5gH3ZGUVbIKlulSXGCUZm DFiUpqfGrKW2pgCTzZLCf IC8+FZ7wIPMmXhpnbQXbb 3M0uHI5R09brr7tGXvisS Z2CMSeCnEghabkk5tybXg 6IDcuNmluOyBt JKWbwJ98OPX0bG37Tq38x NZgbMZqm7dbhYz9HeDvCK KmAFH2gOqdPOjvo7JfJBN yA18dxYBrk2U8 RLAtzZxkeKMbCpRyoMI2d J9nUMunjhhsg5teehnvKn r7gw27sGHne0P7yYR0R9W keeQ2TFUzzLUk ItmryOIGnS3iypips5xyp qscCsVzIDEzFSg7YNk7PT QdiFqkLqXhSD70MOA9VTT zmyGhD7QkVYAu oErvDkN6d4C1Us3LG5ONV iseK4MTVCVPPVigmKK+PC 11dk05Q3GoSeonMjf2SSR wYWT2wKA0yF0j OFLkNJvbj0T4fUT8Y7Fod pKooe4yq1syEBDvALjoT2 4cpTOeb8I0PSXwoMV2DIL fgCedDdNqhV75 Oyc+GMWmsLzej8QcKypoi 3guk3vmbHl3JlssQLUnmn QtyNdyKWX3l3XpIj6qYGI tpAB3wFA7lS3s RmLsVxQ2YEfdQ494SrThy BVqDjsvL71tT1ScfSH+PH JuCge8NWVgfVsaZY5oL0Z hZGRpbmctbGVm bFhxOC7wFDUnxetwSFAsv C0wYYKiU5w6SsLbRfP0SJ znO3ZyFDFueiiaWt83hN5 qJpFsEyM8AOxo L2ArfiU3WHCcnXVuQNwiU KE7B37kp6L2OQZhTQNcRF Y3sHI0oX6npAtqyzzhbAP mdDsgdmVydGlj KYccJYzkD437HFLxrRxsI kNvZGluZyBEYXRlOiAgMD MvMDYvMjAyNTwvdGQ+PHR xSCX0aRhvVQPf uTQdKXtkBq7adVbteVkfT V5fBYGqhwqaTJWiaX9aXH WpoRTinLwyII4cXBLhmzl uk176TgMiWTV6 QCWwhCUaN6CbeB3wBsTxU VMkJYHnF9WgzTNaCFmcR0 83ZRydCxQ7FRErtfTeK0Z sLWFsaWduOiB0 d5C2Dx3Bt3NokuojT0Yfr TGpBfTjDxpdJTr5R8CrAc wvdHI+WJ92CLDxBI33RJn 4NPB1aIpnGSwi SQUnM8YgaQ9aBsEwRSNzJ GRkOyc+PHRhYmxlIHdpZH RoPScxMDAlJyBzdHlsZT0 pKr5tLZJdUKPb zZqjzLQzLvKji0ypOTHeT JpgAF8yqPdmX3CscHL6BP Ojq6o8Gn19S20vW7AqrLW +LLUkaUN4pQO5 sE5rWdTtRvZ4FWeeK599O bShrKEoFavpm2hlq1nkuL r9WvF1ZQSpjgZelQqzPLB 2j2YxLs46J88k IHdpZHRoPSIxNSUiIHZhb Emtpr7jeL8iYe6+PGNvbC F5pMC8hI9pKmUcDcF4VPd sM066AdZafOIp Uqvxu9udr0wzeZc9DbFiD OYkxtVjfMlqNES4j6RuBj 72X7GknLskt8UnMyi6cc5 0rJGbn7U6cXT3 E1WoEDJbgzwqmDPbqBrfI A9eVUJbzecnOEPalA7vUY AcD0y4XtTaSbG6NEhqF0Q iyoE3DJIcyYKv TJXjaCGTrP9mzianz0gre dhePkXrPWHnEUv9MSc1TO AlaGmnInZhHYR9PmU1TNI 8iOZffP1aoPdo fltyiM4vKuf+RDJ6rNOry MZLGQ9kPkthtOJ+PHRkIH L6zIbtMSphLQPgvY6eCZK lX2o9LfQtYtR4 RIakA9AtozG9GDPpwDXbT SScfNZCfG5abpzid2gnus gbJmNvRZWlJYg4OJb0CPW saWduOiBsZWZ0 BdV4LHZ7nUBshY0kpZnsm uvkwI9wWzx+QmlydGggRG F8TAl0F0TfMlf0BWIzkBj sND4uiFWrZLlr Ga3baWnloSpgUL7hZQHva nkno582AvZbj8ooUGQdoG DmFApnQWJ4W52gz3H9AEX xUQBwEMW1cSP2 wN4usKphojykpKPkgFuwc pPndJfcGLayPLxqP443AF PudUspAxDjQTt7R6OtUuo 9FBZpbWjrYY8v xGXdMJhhIq9ssRyqiXsyW D5tEWNbhuvhb015WmTzb6 nmOMEipGXlXYjcGGG1V36 ef3W2JTJeGDHn GFH3wAU7vB3ygUzqcegac GVmdDsgdmVydGljYWwtYW kpY086WRBqsEbtRnFtoAi 0C0CqSkv3WRIe wFkaQS5zqMLbEYxxPk9fj EzjmYpkLS4zPMGwbrznc5 84FlLur0mnRUCzkOGyYAt uDQE2O25xl1B6 THRvFBOnSUN2wLS5bS4ih GlnbjogbGVmdDsgdmVydG ciSDdoREhtC523JBTbhWb nPlBhdGllbnQg WCwwCZk7C4LlQioweSJ+P H88BRKhTD78gIDnmSEvk7 bziQn9SfGdGQJkSSA0wZw uGKmgx5ZqLUKt Q03xcGZyq9A7TIEjnKprs EEvBwKzhQP0vB2aIMvjlb bxk9anwqnrXmgeg0wdld8 3mD28A97cLFra ZHRoPSIzMCUiIHZhbGlnb q8iqD7tQi4+NLSrlJV2jK T0hA1uREMbMnC8MJbhC03 9InRvcCIvPjxj y5zfw6rfjYc3ZyJ3ULOel wQdlFddYZI5i1GuYp03H7 9sIHdpZHRoPSIyMCUiIHZ quRpwuc2vgO5w Ii8+VYAghPP6uVP2gX8kY yKrAvL7YCycU575DsLfuO UmQadbG43mQ5OojSP+PHR nQvw5STErgRpr XZ9erQQbNAofCk9dNOM4G zJpVkWrNWekF3PzTKOlwu cpazcloLD5XXOtAQBjlD7 0Cg5rjDhzKCXq hPTJsN5dvnbcd9ftlffhU eAzVUTiAVt3NWl3YYLdiY emHyXjRVA2XzJ3XQA4dCG dsR1cnDyjtmbq lC7sK0FcAUHsajvgLo17s E8rGdCgEaE0ZYslObq+R0 kIPwAIPDagR0yGMSGYVLk WQU5PZRklbBI+ CYDmJFB6eHjaNJfuCWRhh A8sIQYpF9o6FdBfDaS9QR ewE1AuKTPtmifcVz63zS1 nIqLiZyX1NCkl O8EqwsJ7RLItsSFeJRnlM AP2X32zj4X4CBBjZSKbHM O8pXA2eS6acNasgobexMH mdDsgdmVydGlj NQqjRBkfN323DYRahZulI xG5BaViGzUkDLN1N2OtSv j0UHKriOmsYF2wlKEqQIo sAh5ilTjtrGmg BT9tAHUrlujuEMYzaK3hI PJcqXVgnAfiRT7lTGXkfa ika745QbDoNIE3KPWykKX mW4QftO4qPyWu PMNnQOVxE0DbpMGhUZqsP 380FLxnIpF4PCFhyeGpW0 QxMPIysVzpQzT9w9R5Wz6 yMiBZZWFyczwv dGQ+NCFgNYS0wTrnAFasO VNmmY9lDPJbK4g6AeJpDv E6VWqkY8CmVFQypusoPf2 9tJ8wSlIgVuX2 EMpvP0KorgI3NUZvvBChA KabXAU8X17ub2I5AFZpXJ AuYTV9sIU7wO8rgNtxlzp gbGVmdDsgdmVy tPmeQZrqMGchX427ODSlc DsnPkZFTUFMRTwvdGQ+PH PgOVT1zXndYQohSPPbwS0 fBPZiL4r0ThVu QzW1TOttE9DuGRQlmpmmM k33tF0tIwWxYfQ6QLknR4 ZynjM9PEJdnPDnEIzwQJB 2E91dl6V6JKKr PFCrZGM9wSX9eQ0exKcsx jogbGVmdDsgdmVydGljYW klDRcbI471NKNfiKlzDnW wALRlWW3kwKil dGQ+TD12dh26D8BpXnioQ dw4ZDLlTID8mLR8xQ5tRP HnJZnxa4Z4bSF3R4KbnpR nbz9zn5srKSTg GZsoL26ryHIaj6Q5ATFya JO3HVEoaParPpVisW07Xu c+OUOvaQzzx7FaMjxzc8c xo4berQy4NsUc XKGpatFmnDtlTKX4m7DvR n10M55gQNcbACEqPIGwYF LaLHRueZxfiy3mwU0bGy7 +GFRbeUQ0kLD9 yK8rWuDxUtL1YTbaA839B bHnmLChSnycu0wzy8zmqR o2XwAkKZPzkvVpxWqsXOU 7c9MdHj83R6Vb sSyap9PtEjm4kg36hLWua 1K9jHU3B9PbKMLrisrocS VvjBdlZC9wJOWpqvsuGZX viJ6jVPIdU7b8 ObImFtP1NOjsA1UkasB7F CEmaDDkDKXjrTOZqZ7vmv lpz3kbstpbBqUcKQNqCJc 2URs3SXXkmGnm VvYvBXA1CxX9HJV7aLOhh O3giRbejxbcsE7sTnv+UG t0c8fmyBSiJN5mpQV7JV5 3TK51fCXxm7J7 aWI9T4XqYIAqeijtdehdj NJ4JQOoVKLelE91Zz2cqA jzAx7zFRTrDHW5YFMylLF cC1WpeY4uUkVq KCWkSQVhI1WmqCFmXTykZ 503DYblIiZ3THLeabQwW0 YeRKWlpNpxCtO9r0D2Bh6 MTL59YW99HG91 tVJaw7O5iWK1O0DbFBVlg lxtfxmkcKZ9EEUuNRZnfX 90Ti0pnUncPm7tCPOgEMD 6ZCLzhODjX6Qs uH0kHxCgRQExBYQyG2Guz VPxTXbrE402NXfoUqT1CE FtkhCjF0HaORYixGfgCqE 0v7R4Ar2FQu70 QG66BO45tINbm0U4qDI4X 0NfWGOzjufqnnmiuVZ7YA EhHCCwpV80Vs1fkZcxQx3 lRVRxKST0CYWt vYTuZ7GquQ0wJjVrUVAzW MEyC6TuqHAcHKfzE647FZ dlUmV3XBGbpdAaV1WqDDT qhTpnDdK1f9N3 Ff8DCQtffqv3A4InIuyyl HI+UT00XTNbEG48lZAcaS Mtz0nqrXa5UaEwBADlCAO 2dXmyEKees2Jt ZXI (more content not included)... Normal [facility] .Auto Diff 06-07-2024 Auto Geary % 6 % Normal 04-19 [facility] Comment on above: Performed By: #### 1 [id number] ####[facility] (DEFAULT)[address] [place] [address] Baso Abs# 0.0 x10 Normal 0.0-0.2 [facility] Comment on above: Performed By: #### 1 [id number], 6519071123, 2151569, 00103377, 1901810132, 7326168 ####[facility] (DEFAULT)[address] [place] [address] Basophils/100 WBC (Bld) 0.6 % Normal 0.2-2.0 [facility] Comment on above: Performed By: #### 1 [id number], 8001756669, 3296852, 30486970, 0626830658, 1873565 ####[facility] (DEFAULT)[address] [place] [address] Eos Abs# 0.1 x10 Normal 0.0-0.4 [facility] Comment on above: Performed By: #### 1 [id number], 2410238836, 4293352, 62221154, 4361273363, 2061563 ####[facility] (DEFAULT)[address] [place] [address] Eosinophils/100 WBC (Bld) 0.8 % Low 0.9-4.0 [facility] Comment on above: Performed By: #### 1 [id number], 7331087773, 0794656, 77631477, 1967553339, 3630384 ####[facility] (DEFAULT)[address] [place] [address] Lymph Abs# 2.9 x10 Normal 1.3-2.9 [facility] Comment on above: Performed By: #### 1 [id number], 2261573234, 9700640, 56434968, 4200763064, 7907042 ####[facility] (DEFAULT)[address] [place] [address] Lymphocytes/100 WBC (Bld) 36 % Normal 14-48 [facility] Comment on above: Performed By: #### 1 [id number], 5700843446, 9622965, 98209603, 7288101453, 9014257 ####[facility] (DEFAULT)[address] [place] [address] Geary Abs# 0.5 x10 Normal 0.0-0.8 [facility] Comment on above: Performed By: #### 1 [id number], 0762463920, 7690270, 27726414, 9152894903, 9035151 ####[facility] (DEFAULT)[address] [place] [address] Neut Abs# 4.4 x10 Normal 1.5-9.2 [facility] Comment on above: Performed By: #### 1 [id number], 5698048077, 5122182, 71970968, 1717391725, 4552476 ####[facility] (DEFAULT)[address] [place] [address] Neutrophils/100 WBC (Bld) 56 % Normal 44-88 [facility] Comment on above: Performed By: #### 1 [id number], 1681149906, 0612072, 03971706, 1702661730, 5010861 ####[facility] (DEFAULT)[address] [place] [address] CBC w/ Auto Diffon 5 Erythrocyte distribution width (RBC) [Ratio] 14.5 % Normal 11.5-15.0 [facility] Comment on above: Performed By: #### 1 [id number], 4751197223, 8729531, 89577982, 2201589995, 2185980 ####[facility] (DEFAULT)[address] [place] [address] Hematocrit (Bld) [Volume fraction] 37.2 % Normal 33.7-40.4 [facility] Comment on above: Performed By: #### 1 [id number], 8901869739, 3570113, 20644778, 0648138028, 6836865 ####[facility] (DEFAULT)[address] [place] [address] Hemoglobin (Bld) [Mass/Vol] 12.3 g/dL Normal 11.3-15.9 [facility] Comment on above: Performed By: #### 1 [id number], 7520956702, 8953281, 56997279, 5566245823, 7777784 ####[facility] (DEFAULT)[address] [place] [address] Man Diff? Auto Invalid Interpretation Code [facility] Comment on above: Performed By: #### 1 [id number], 5843490078, 5358267, 79557430, 0614759959, 2409650 ####[facility] (DEFAULT)[address] [place] [address] MCH (RBC) [Entitic mass] 27 pg Normal 24-34 [facility] Comment on above: Performed By: #### 1 [id number], 4308699617, 3960000, 40998545, 9011407761, 8836682 ####[facility] (DEFAULT)[address] [place] [address] MCHC (RBC) [Mass/Vol] 33 g/dL Normal 26-37 [facility] Comment on above: Performed By: #### 1 [id number], 8665319789, 8153316, 70283015, 2229466435, 3756209 ####[facility] (DEFAULT)[address] [place] [address] MCV (RBC) [Entitic vol] 82 fL Normal 81-100 [facility] Comment on above: Performed By: #### 1 [id number], 3941060082, 9934299, 47716568, 0654609753, 6425130 ####[facility] (DEFAULT)[address] [place] [address] Platelet 368 x10 Normal 138-427 [facility] Comment on above: Performed By: #### 1 [id number], 0572939636, 3926234, 71425032, 6072911595, 2249476 ####[facility] (DEFAULT)[address] [place] [address] Platelet mean volume (Bld) [Entitic vol] 8.6 fL Normal 6.3-10.2 [facility] Comment on above: Performed By: #### 1 [id number], 7144174290, 1825755, 01047626, 5081962415, 6851251 ####[facility] (DEFAULT)[address] [place] [address] RBC 4.51 x10 Normal 3.70-5.30 [facility] Comment on above: Performed By: #### 1 404940918, 8790315431, 9513641, 22233669, 8255793106, 9546275 ####[facility] (DEFAULT)[address] [place] [address] WBC 7.8 x10 Normal 3.5-10.5 [facility] Comment on above: Performed By: #### 1 [id number], 0137875349, 2437548, 86610345, 9663864089, 1820680 ####[facility] (DEFAULT)[address] [place] [address] CMP Standardon 06-07-2024 eGFR Non AA >60 Invalid Interpretation Code [facility] Comment on above: Performed By: #### 1 [id number], 1612744056, 0820581, 03383577, 5782432727, 7234124 ####[facility] (DEFAULT)[address] [place] [address] eGFR AA >60 Invalid Interpretation Code [facility] Comment on above: Performed By: #### 1 [id number], 2071184989, 8398372, 32369343, 8017394219, 2293309 ####[facility] (DEFAULT)[address] [place] [address] Albumin [Mass/Vol] 3.8 g/dL Normal 3.5-5.0 [place] [facility] Comment on above: Performed By: #### 1 [id number], [id number], 8096632, [id number], [id number], [id number] ####[facility] (DEFAULT)[address] [place], [place] [id number] Albumin/Globulin [Mass ratio] 1.1 {ratio} Low 1.4-2.6 [facility] Comment on above: Performed By: #### 1 [id number], [id number], 4396109, 32827622, [id number], [id number] ####[facility] (DEFAULT)[address] [place] [address] 96212 Alk Phos 79 IU/L Normal 32-91 [facility] Comment on above: Performed By: #### 1 [id number], [id number], 1355399, 08138998, [id number], 6091756 ####[facility] (DEFAULT)[address] [place] [address] 83868 ALT [Catalytic activity/Vol] 21.0 U/L Normal 14.0-54.0 [facility] Comment on above: Performed By: #### 1 [id number], [id number], 7581361, 06695536, [id number], 8769854 ####[facility] (DEFAULT)[address] [place] [address] 14354 Anion gap [Moles/Vol] 3.6 mmol/L Low 5.0-19.0 [facility] Comment on above: Performed By: #### 1 [id number], [id number], 0553256, 13947494, 8461531345, 8035968 ####[facility] (DEFAULT)[address] [place] [address] 48214 AST [Catalytic activity/Vol] 18 U/L Normal 15-41 [facility] Comment on above: Performed By: #### 1 [id number], [id number], 9844423, 53956122, 7288856956, 5221285 ####[facility] (DEFAULT)[address] [place] [address] 66143 Bili Total 0.5 mg/dL Normal 0.3-1.2 [facility] Comment on above: Performed By: #### 1 [id number], [id number], 0408213, 60412618, 1107558109, 6098894 ####[facility] (DEFAULT)[address] [place] [address] 62082 Calcium [Mass/Vol] 8.2 mg/dL Low 8.9-10.3 [facility] Comment on above: Performed By: #### 1 [id number], [id number], 2276650, 68453663, [id number], 9421929 ####[facility] (DEFAULT)[address] [place] [address] 13205 Chloride [Moles/Vol] 113 mmol/L High 101-111 [facility] Comment on above: Performed By: #### 1 [id number], [id number], 6880257, 80173216, 9552943533, 8785377 ####[facility] (DEFAULT)[address] [place] [address] 93480 CO2 [Moles/Vol] 24 mmol/L Normal 21-32 [facility] Comment on above: Performed By: #### 1 [id number], [id number], 8864647, 12215458, 1411655293, 8637155 ####[facility] (DEFAULT)[address] [place] [address] 45017 Creatinine [Mass/Vol] 0.67 mg/dL Normal 0.60-1.30 [facility] Comment on above: Performed By: #### 1 [id number], [id number], 1449047, 94877685, 3694043582, 2067178 ####[facility] (DEFAULT)[address] [place] [address] 81782 Globulin (S) [Mass/Vol] 3.3 g/dL Normal 1.5-4.3 [facility] Comment on above: Performed By: #### 1 [id number], 9635087790, 9105522, 12012463, 9193769391, 3000296 ####[facility] (DEFAULT)[address] [place] [address] 41697 Glucose [Mass/Vol] 92.0 mg/dL Normal 74.0-118.0 [facility] Comment on above: Performed By: #### 1 [id number], [id number], 0455406, 36203342, 9227559579, 1272344 ####[facility] (DEFAULT)[address] [place] [address] 36698 Osmolality 273 mOsm/L Invalid Interpretation Code [facility] Comment on above: Performed By: #### 1 [id number], [id number], 9623985, 05241246, 1504849920, 5774509 ####[facility] (DEFAULT)[address] [place] [address] 14100 Potassium [Moles/Vol] 3.6 mmol/L Normal 3.6-5.1 [facility] Comment on above: Performed By: #### 1 [id number], 6790870455, 4755202, 88416888, 7274849294, 7626472 ####[facility] (DEFAULT)[address] [place] [address] 48048 Protein [Mass/Vol] 7.1 g/dL Normal 6.5-8.1 [facility] Comment on above: Performed By: #### 1 [id number], [id number], 1043426, 41082629, 5032472603, 3625769 ####[facility] (DEFAULT)[address] [place] [address] 22655 Sodium [Moles/Vol] 137.0 mmol/L Normal 136.0-144.0 [facility] Comment on above: Performed By: #### 1 [id number], 0406500448, 8906894, 34594111, 3793375793, 9020256 ####[facility] (DEFAULT)[address] [place] [address] 35594 Urea nitrogen [Mass/Vol] 11 mg/dL Normal 8-26 [facility] Comment on above: Performed By: #### 1 [id number], 0740959735, 6695973, 37957381, 7944093832, 2304782 ####[facility] (DEFAULT)[address] [place] [address] 73353 Urea nitrogen/Creatinine [Mass ratio] 16.4 mg/mg High 4.6-16.2 [facility] Comment on above: Performed By: #### 1 [id number], [id number], 5487910, 87161501, 3092046700, 3910075 ####[facility] (DEFAULT)[address] [place] [address] 68675 ED Note-Nursingon 06-07-2024 ED Note-Nursing PT. C/O [...] x4. PT. has a steady gait. Normal [facility] Extra Redon 03-02-2025 Tube Collected Yes Invalid Interpretation Code [facility] Comment on above: Performed By: #### 1 [id number], [id number], 1573007, 46205427, 6670921289, 6240134 ####[facility] (DEFAULT)[address] [place] [address] 98787 UA Standardon 06-07-2024 Breakpoint UA Normal [facility] Comment on above: Performed By: #### 1 [id number] #### [facility] (DEFAULT) [address] [place] [address] 38618 Color (U) Yellow Normal [facility] Comment on above: Performed By: #### 1 [id number] #### [facility] (DEFAULT) [address] [place] [address] 28651 Glucose (U) [Mass/Vol] Negative Normal [facility] Comment on above: Performed By: #### 1 [id number] #### [facility] (DEFAULT) [address] [place] [address] 27287 Ketones Ql (U) Negative Normal [facility] Comment on above: Performed By: #### 1 [id number] #### [facility] (DEFAULT) [address] [place] [address] 15303 UA Bilirubin Negative Normal [facility] Comment on above: Performed By: #### 1 [id number] #### [facility] (DEFAULT) [address] [place] [address] 22253 UA Blood MODERATE Abnormal NEGATIVE [facility] Comment on above: Performed By: #### 1 [id number] #### [facility] (DEFAULT) [address] [place] [address] 21839 UA Clarity CLEAR Normal CLEAR [facility] Comment on above: Performed By: #### 1 [id number] #### [facility] (DEFAULT) [address] [place] [address] 36559 UA Leuk Est Negative Normal NEGATIVE [facility] Comment on above: Performed By: #### 1 [id number] #### [facility] (DEFAULT) [address] [place] [address] 46654 UA Nitrite Negative Normal NEGATIVE [facility] Comment on above: Performed By: #### 1 [id number] #### [facility] (DEFAULT) [address] [place] [address] 18146 UA pH 6.0 Normal 5-8 [facility] Comment on above: Performed By: #### 1 [id number] #### [facility] (DEFAULT) [address] [place] [address] 04899 UA Protein Negative Normal NEGATIVE [facility] Comment on above: Performed By: #### 1 [id number] #### [facility] (DEFAULT) [address] [place] [address] 24001 UA Spec Grav >=1.030 Normal 1.001-1.035 [facility] Comment on above: Performed By: #### 1 [id number] #### [facility] (DEFAULT) [address] [place] [address] 84424 UA Urobilinogen 0.2 mg/dL Normal 0.2-1.0 [facility] Comment on above: Performed By: #### 1 [id number] #### [facility] (DEFAULT) [address] [place] [address] 60768 Urine Source Clean Catch Normal [facility] Comment on above: Performed By: #### 1 [id number] #### [facility] (DEFAULT) [address] [place] [address] 71587 US 1st Trimesteron 06-07-2024 US 1st Trimester [...] Apolinar Toussaint MD 06/07/24 1:58 pm Technologist: [facility] US Transvaginalon 06-07-2024 US Transvaginal EXAMINATION: [...] Apolinar Toussaint MD 06/07/24 1:58 pm Technologist: [facility] hCG Quantitativeon hCG Quantitative 5.2 mIU/mL High 0.0-0.6 [facility] Comment on above: Result Comment: Post -Menopausal Reference Range is: 0.1-11.6 mIU/mL Performed By: #### 4 [id number] #### [facility] (DEFAULT) [address] [place] [address] Coding Summaryon 06-04-2024 Coding Summary HTMLBase 64 LwspihruCEs3lZh+PGhlY WQ+SH2YKGSfY27oiZWfnL 9uW2TNSOvIWozwVJSAGLp PMvMflrPtYY3uyWEvDHUj IC8+SH0gBTUvWbnoyHTlq 5E3jJJ5N79fcw5mAArfrZ K6PHFlGyRaldkah5jysUp 6IDcuNmluOyBt QSVbrM88DSZ6aE63Ag75y PYnbIAhd1geuEx3HiZeRU QuBGU7mOuvSWyfi0VuKZC kN81etOZxs3G5 DIQlbHjcjVVnNcJyzDV6h Y5zCKlhmyzkb2zqggxuXm d2ej72yZInl0M5xNS1R2F hfxT8YITsnWFz TgblwVWHcY2ppgsmh9zwv zvzFlXjSMXxWLa8CUn2IF UqyEwtKxJfSU30FPQ1JAT zpcWrL9XiKQVr xLscWfY9t4A8Qx0FR9OPZ spsS2USHAVIOCtrdTC+PC 77dl62B8KuAklmYda2NVJ yQIH8lUY5jO8f KKRiUXlgz0G8fYE8B9Sca tRwme1lz6yiXRDpSCpsK8 0tfKGkw8V2SSVncDY6HVV rrJtxMfCvlW09 Oyc+ETFdbXhml9ZdEpeya 4ruq1rxjYp5HsnxCQTqmn AypUreDQQ3v1GpBc0iDUR fdNX2bDB6zF8s CyPsOsP9BQcfM067WgDyc MSeLjbmO69hH1UacNC+PH RxQje5TZVorOhaDO5fK8S hZGRpbmctbGVm vZrcNH8cPECpkepjGAUqx C6lTZAcV1c0YiGvUiW6BZ gwX9ZsVJVhhakmDk81pB0 eZlBuKkS4OXpq E8CpepM4AZCffBCyCPxtY GN4T59nz1A3GVMoTXUpHF F2jLH3fZ6iyQjrqjfqlFC mdDsgdmVydGlj JGkjSUsqQ155EYIvyXphB kNvZGluZyBEYXRlOiAgMD IvMjcvMjAyNTwvdGQ+PHR pSXA2ePobZMPg jYBoDTzjVm0fwYpucOuyI F7uWYMzcmdlUEZioS4xRC YecPAjlLwqSU0lLFEwhlu ib268ZeIjZID1 VWGqyOYoL6QvzY9mXdSyB IEoOYBeA3DmgRAfSMwxD7 39LQnbSkG7QAHskyPwB4P sLWFsaWduOiB0 h1N2Ny7Rw0LvbcfcV8Xmw DFnLdXzStgkPKr8M6FuDe wvdHI+GW33HNYyTX96QIv 8JDY3vQqzZNgo QIEwF0GfaO7wVfTfIJLbT GRkOyc+PHRhYmxlIHdpZH RoPScxMDAlJyBzdHlsZT0 dZy6gETXtEPEl lAglzTRlMjMmq1fnRPUiG QriKL0upGarJ9EolDQ3OO Tym7p3Eb17L71zK7NpnGS +KAWzvLO8bVU3 nF3zJeYmTnC3OPhvU032G dXlaTYkRlskt2vsf0yxnM n3EuZ5IFJuuyBobMrfHYR 3g9LkWa23S68x IHdpZHRoPSIxNSUiIHZhb Wvrxn9igM8jYx9+PGNvbC P7wOP2oI7gFnYcEjZ6GBc tN962EvSgdYTm Gzahm3amm4cpbVo5YlSuN CQdkfMwiVwvJUT2y1KzBv 24G5HroYjye6SzWhd3sd1 3rYNza6M1aHV4 U9AqOINqvrzmuWFnaIjjL G3nRINqrzzyIRIsuX4cEX WoR5x6KpRfRfC5RLrdJ0W dxoE1TVNzhMTe VQCyaVWLmU9sktnsp9wjt corYuQhLNMoEGt2NQq6MU LprQggQgPnXBJ4AdY3ZBN 6eUVxgE2qsYee ljfmvD7gYpt+SFU4vAUna XMNII6mCyullGW+PHRkIH B8nEdsQCtwVJBtzN1hCFW aP1j0NhMeCeJ2 FMrmG5OotvU2GQFcfWEfN EBwzAIGuF8vrcfdj9ufgz elAlHvFSSkXIc9IYk3JJO saWduOiBsZWZ0 NnL0UTQ2gEDzyY2lwEwnn cgxmI3xVmu+QmlydGggRG X8AYc1E0KqGcv2UXCsnIj sTR4zlFAeOHjx Vb4wjWzqbZjzMD5hHWHiy qoez127CpHkl2wkESLfcL WmPMijPUM0L63pq2R2OOM yFGJsNYQ9iPD8 xQ9jsDfenrhmxQAjqOlll tPqjHccNOnmSBmsZ120ZG OigBtuSsUiJRx4Z8CyJep 1EMDhpHyaMB7x xSPwZLooAm3skWphgAysR L4oCILpgtcly483DuUyq4 ucGTGozIXxMDfgPDG3C99 ll0M4LYHsNKDn INY9eOC1oZ6epSxilotvl GVmdDsgdmVydGljYWwtYW lpP930DJDjaJytJeFyvRg 0H7AnMxl1JZEd eFskSF1pbSEsPTzyKx4sb VzkvOjzJG4rRBPcywoen6 46HkBvj8evYNTkkNIkOTa qCJW2X48jk5E0 YIOuMNUvDGM2cEC4cE3al GlnbjogbGVmdDsgdmVydG twBYlqOPlyU443PTNiqHo nPlBhdGllbnQg UGhbCHi8D3YlJgmjfEJ+P H09WNSaUS42yCTlgUZpt2 itrTr0WxCiECNjTBP4hRv oDUulc0LpJDWy L13fqFQmn1M6VAGyoQadb QKtLoRnpDZ2vM7bRMujfp mgs3pcxzwfUoebl7liay2 3aJ68R16aPPrb ZHRoPSIzMCUiIHZhbGlnb p3vzB4nLg7+KZCwbBQ4wU M3tR2uCJKxBpA4TOohY77 9InRvcCIvPjxj r3jeu7hymPk6HjK8NWSfr nLhmAehKNC3q2OtLi63H7 9sIHdpZHRoPSIyMCUiIHZ qyArvoa4ebG1k Ii8+DTMhrPF0qFO3aP2eS dMfSrQ1ORwrW833LsOddK JkQixlG88kK8AynVC+PHR mRgd5UNMymHak AQ5ygDRyLUqsDk2lSLG7A bHcEyPdATtoD6MiMRIruq qzavbnnWT9ONKgNVLisO6 0Jl0qmHcjMVUe iVFGuK9motdlt3lcofhoS wAxRXFtMKt0PEo1LGOxlR khHjQxARL8QrW9AYE1sEG rsK3rpNpvngrt kT5cN3ElEMXhmyflHk31m W3yHgCfQnW4BXviFtu+R0 wSTeTQYQugA4oZKAALJLr ZZR2FDPamyJS+ IJOtBZL2zSztSTajQCFog U4qGYEcL5y1GhQnAgL2VZ swW1RdCQQfubeyTy18uC4 fJcJnBkJ1HAaw L8UnokV4KNMgcQNtOMjbW XE2N21zn6V7FMRiUBDdKJ D5gOZ0uL1zlZycamiqgSN mdDsgdmVydGlj XFmlQSgqR891LBRxuTktN aB9WeRyJtZgEYC4E9NwEs c3TLXnqMxhJR7koTTuSJq vLs3bcTyqgPmm DF8fDROgfysnUUZfnE4cG AJxkSHueLyrDJ6fOGZwsb dtu407HsUyYIE3KMIbkKL tX8ProC9tBdPf WYWnKWFbD0YorNNgZAnlH 254UHblGcL0VDRmksRcG4 MfVWPgzByrZaW9m9C4Yd7 yMiBZZWFyczwv dGQ+NBSgQGE8hYabJIouZ SYmrY0vKMPwG5s8XyAiZw P2HNuaK5LmEZNyudxtNg9 7fV9pYqBaRhX6 CSmnC2BgxwO7PUJdiJSbF SfoWMY2U96hq2J4LYRfJH SaAFS0gEM0eS5eoBucksy gbGVmdDsgdmVy mDutFWhqIVbfR915HRRhl DsnPkZFTUFMRTwvdGQ+PH SwKEP3jDykWNvqVCHchB9 rOXUrS5u1SdMs MbW0LByrX8LvEUPbplvyM l07pM0lIoJyUuF2BAarB4 YxuqJ9DEMjvJTbONemHDZ 1K34tk5E1AYSs HPHtKWX8fGM7oI1plRuju jogbGVmdDsgdmVydGljYW ytUIowZ390HIPhgIxbDn5 XOO31NA24X7Oq PjwvdGFibGU+PHRhYmxlI HdpZHRoPScxMDAlJyBzdH yuMV9wFi8jABJiNCKamDz kaXYwIjOec3qo MUViPWwcTM0mlMnvG0Lba DY8TCSsh5i3Dj24O03dQ9 JvdXA+KVXgpCD9hAP4qU6 sMeCyDyN8MXip X924CiMjiJWgAsgct8ugp 8nihUm6AcApYCIvypKslO idELZ1i7WzXt99Z53aWUn pZHRoPSIyMCUi QWPetKdach2fuW8zKi4+P OPzvDG8sTB8bM6bJbIpXd X4BRahA273TeQzmKDkZtf iN75rJ7JawEQ+ GFNmRwm1BGQhdVnjCX6gx ERjRHowBa4gXJL5ZbOlLs RiEErbO2JbOOZovlilwri eoKZ5MJBxYXDe hF50Gd1jfSzfPp6bWZBcI SF1OXXfsYYiD8AsyU9nXc FpGQZyWYDfK1XquBAzSVy lP856HMgtGhF3 VZAokqUfO2UeRWUfrQhoK hP2c0K0Mo5ZmCqejSFyZZ 9aDxAzAQt4C6NfArk7GBN gaVmrBU2bcXHj RXmsRn8icRawlJmpTN0kE KCsddosn918ZpYbh9tfRE NnrMJaIBgcVEZ1S99zg4Q 1UAFyHKXfGUO0 bTH9dN9ftHqdyrkqeMKer DsgdmVydGljYWwtYWxpZ2 03PIWdvGiuCgSMQac9Z9W bEfs6LDQssEaa IB2syZRjWAkeBu0vqZvek TpfKF2mHPWeuleos601Hf Boc0jkIYMtnQNwAXcnJHP 2W86af9Q8QPNr GXFaYDU6mFM2yC8pfKcyw jogbGVmdDsgdmVydGljYW gnIYpyZ515NZJjvReaYd8 RVwz1O6CkQby9 IXAosKhoQK8omGQlEUdiL k9asNzikVmbRF1nVNDwrs cxp914YyXtg1qpVCHzjME wCFngCPO6R40y x1H4WMVeBLTbOQJ5aTS2h T0qmEybpnjicTDvrLctzl PatWbmJUooVWtdQ833ITV vcDsnPlBheWVy OjwvdGQ+DQ80is49V2GbT cnrGcn4UGZlHCO1vJJ3wB 8mACTqTWrrh4K3yDK9X9S zosCuqt3tq1nj YXB (more content not included)... [facility] Coding Summary HTMLBase 64 RwwqvzkzPSa6nLw+PGhlY WQ+MF1VAHBiL89bvUBxaS 5yX6BJGLwZFjqwAYDBCTi CUaUvjrXrFG1ahZNgCGIv IC8+HU5qUQQeGepucFNvb 7P4wFS4N79gxm1vMOymgO P1RTPpXrDbfifqp2nmlHf 6IDcuNmluOyBt KGFkeJ95QUG9mL09Nz18i DGwtWGhh2hmeVk2CjVaPJ VnDYW0rCgbMSrnn7IrGMN xJ30imWKcu4J5 GVDgjQlwfFNuPiBhwLE3b M8nBVonbhubb9ynyzhmJv c6xs57lAPpz3U0fSR6D5B wetW8EVIfpXXj GyydwYWZqE9zkmygh6jui mhsXaUmXUKaZWr0IPh6RJ MxfUfbOfUnCL80ZDD1DEX dvdZpR7HjXTYp sAdiFmI3x8N1Fz7VO6TYI yvnG0HZYLVJHObduBB+PC 64lr26W4UwGyxtDig4JEH hLMU8oLT3aV2n YGSmHDbeq5X7gJN5G9Iyg nWxfm8ka3chIOEvSWiaT6 2jrDExz0R6WNAudBF7BCT ggTobAxXqtW36 Oyc+OZJesIyqm9NdSfbdh 2fwg4ghfWl5WfktTVMsrn VcpNgbZRZ8b5KbXl0mAAX qmAW8vOO8wM0a QvRkVcG6YDxeP419WxOhd WZsDjnvA84pH1PgwHX+PH LmBgx2XTWifDcqZY7qN8A hZGRpbmctbGVm rJtqEQ0wCFRkfjgtORBkr O0cYALhK9g4BlImTfI8SB itT9QxDGTrhiqrGi48fQ2 oZeCiVzE8XKzp N3EpxtO1BKGrnBVbWRkjY GW5G08ew1S1PVLkLXWeBT P5iAJ7tX7yuShxnfrkeMV mdDsgdmVydGlj CUaePNcaN850DOBivEjiG kNvZGluZyBEYXRlOiAgMD IvMjcvMjAyNTwvdGQ+PHR eQAD1fRflRVVa zWBmKTycUp6rhVaszIliR O2zCAMnjnslWQTvcD8lWE YqqDCqfQbuGL7aXRTwbky eo926SrPlJCU3 EDHadDPhH5IirN2oAhBrI YOsZMVcC6SxuHXxPAzeN4 37SZnpLyO6UYEqxhQuK4O sLWFsaWduOiB0 o8C9Wo5Va9KzfhsoP8Tmp JMhErDdZaurPJl8W6QdIk wvdHI+LV92UBKgMY23JVc 6LSY6iOyhEMsd XDTqW3PluF0nBqRjLLChJ GRkOyc+PHRhYmxlIHdpZH RoPScxMDAlJyBzdHlsZT0 rJf4nEDKkJMNf wIqnwLMaRwXpu8plEEFgW BndVA8ujIqnA3RxyWK4WE Ujq0a6Us15D07zZ7XbuPO +ESLqhOF1iZD3 nC1pDeGoJiK5JBxtD504A xAexKStHyhis7xia0rasO k5LmP2CUNqdsEcsGdfJNF 4z0TpRr60S27c IHdpZHRoPSIxNSUiIHZhb Dwqpu1flY0uLk4+PGNvbC C8lXK4jJ6ePoLhWyX6JVp rR512HaJdgNRv Rifat5pnw9pjvBm4BqLuC SNnmbNdfNfiAJA1n6YsZe 29E7ZbqXgdd6VbPjp2td2 8vBLdh2N9xAO8 I0AwRFYtvygagSAbiAaiX F5pFHDnnrfzSSGhdF6lIX VwZ2n8FhBsBzC4UZscD8C tggK4QTOjxYOl YTPfyCYJpC4cniesz8jok gesIeBbPMCqQIt0AXw8FR JxeTzsSoDtAEE7VbY2CNZ 5cGJdzS3scTji corfuL6gSzd+YKC2tCCfd AKDWK1rKhlekIU+PHRkIH H1sMejJDtuSIFhwF1dMHB pX1v6BuCvYlG2 DQuaU4DcbeH0ZHMghLOpU UOksUEQhM8kmpchj0grer doVaYzQCJqCSk6DDz6NEF saWduOiBsZWZ0 NnM0XFI6jJXwsZ6kvHgwb fdnaM7lNpm+QmlydGggRG P9FIz8O5GjBkq7QTXcgUd mWW4epQBbNOia Kh1cyPalmJxqXA5rCRYgs lshm342JfJnl8icLNKulY KmKNqbNRO1S56ze3S5GVB dFMHwFIU9jKZ9 sO4ucAcvgjfozLXbgFyfd nRhlYowXWeoRVlxR576NG TseXpaBbLaFXh2Y1HwRyg 5HUNnxTsoJS0u jCXpMCdvFu5bhAjphZhnG Y7dSAFruhbpy138CdBih2 fcYBMwnDTmZEsfGHY2R49 it8F6TWGzUKHw KNO9cGE4oB7lyAvmqzkmt GVmdDsgdmVydGljYWwtYW uiW868FBDjgRzdMuMuaDp 2M6BlSdu2CIWv hEhlDL6drXGwENfrXm1in DvnwYboNA7qSQHyiofqs6 60OxIgn4nrTMHleQSjNNj hTKZ5C82xk2J2 FLSsUAMnWHV9iTE5bB3vb GlnbjogbGVmdDsgdmVydG hzBSesMDvcC368VQPsuPk nPlBhdGllbnQg QBfmCSy6I6ToXvcltYK+P W49ZZMdSC92rCJnsIJrx8 vlvLw2IrXoVHArDUW6bFs oIZvxw1RqYPRm C31uuCYyo2R1GIJqpTzqr BJnAaUtjXB8aE5bXUduif fim3ylbufbSuetc1uodk4 0tD94B86sBJad ZHRoPSIzMCUiIHZhbGlnb x0mpL1eBn9+TYSneZY9aQ I9xN1qVLLaZpL5KHlzU91 9InRvcCIvPjxj j3gsd2zeqFs9FxC7AINtj xDucGxuBTP9h7VuKc00B7 9sIHdpZHRoPSIyMCUiIHZ doVwxmk0riB6x Ii8+GVDqhVD8dBG2yH3nC yGsVcT2RIkmD121CiGqgJ FpKlwhC05yG4ThfRC+PHR bObk8XJHvvXsw AL4cqIVtVKrzUi8uQCC0G nUbVeDnQCooI6SyOSWctg vkbkkxzGT9PAKtGZCglK9 0Mt5xsRttMJFi mMPJvH9nnobtt3ofigybC nZmFBDcPMb8XEg4MLOtvS erVeQgHJA4EuG0RNH9tFM avA5ziWajqubr rR7tV4RfUZExqwrePl99k Q6lDpOsGrZ5FGgdWkn+R0 yEUfZSYTzgP8kHIRTJJEx OYI2WFRvgiPO+ GJBkHNO6fOffKMnrQWWqm O6lGCZfN3s9QxBhXaN0OD xbJ5EkURSbbebrUx69bQ3 sBfCeNnW5JJck T9FbacD3IUIhzKNnOOdtH LU2U95jr4D5KIZlNKKgBF C1bSY5aY9odSedgjkawRB mdDsgdmVydGlj ZGltACoxD419PCXluVmzC bL8IyIuVfJqNDS0D2UfOe g9CRGkwWmnBZ2dkYPyKBv oOm6meDrptHyc ZG6gLGLafnvhFRAcdB7iL IDnmUZouFurLJ9vQQHwbm zxg978FiCsRQN2HALjmZD yU9BhvC5cFpXx YCZyZCYoW7JdpRJzVYlfX 494ZNwxZbD7PGGrapRmK5 PdSLDlfOwsDqC4u0W9Xo6 yMiBZZWFyczwv dGQ+HVRkYFE3vSgfFOtyD AUwxY3hCFEaF7t9IxJuCj T4EIxdC8KsLRAhohnpJu5 4sY6lTxFgGdB2 ODenL9JmjqK0OQQbfHYlN RjmRHW5F50cs8C9PAKbRJ CxNYL7jGU8aA9hsOxcrct gbGVmdDsgdmVy oKftIRgvMEocV641IGYux DsnPkZFTUFMRTwvdGQ+PH UySLK3fTssPVioFELuhW0 bZBDbK1w3WaKl JiE8ALbzV9UsBQAfysslL q67tP5cZnXfWbJ0NOzgO6 FhuhY3WBHspRJpGYkyQGF 8I97ku2U5IBCm CULfUEE8jYG7aU9cnUcbe jogbGVmdDsgdmVydGljYW zgEMvrW112RYGkfXygKgB pB7MoapayCsDO aNZyZUWcZK28SO67XF98P 3RyPjwvdGFibGU+PHRhYm xlIHdpZHRoPScxMDAlJyB rfCfjHM7oNb1r ZGVyLWNvbGxhcHNlOiBjb 2uhEKStZJvmXH9siZrbD2 TuxHJ2MILym5s0Ay70J92 gD9HtfXO+PGNv wDK8xZM1oS9oJrNeGjW1V XooE447WvTrpQMlVybsn3 klx2sneTk2VtOdGFUhdfV yvFjbZQS1g0Pg Hu26I29oTVcuRODzDMUpP SVlILNnjDrlgy9luE6qSu 8+AFDcgBE9gIN4mX7eDnJ lOqS1XXtpP696 CyLnpNIuTkorN33mL1Nwz XA+INIkQrs9AODhgKkdYE 5zcPVoIMbeQn9gRES8ZvF mGbVvXHqwX8Sb EMHwukyzthbceKH9YORnQ AIgdZ33Mu5drLhjTk9rEX YyPSH5RGJpqEUeI9LdaD8 yOiAjMDAwMDAw M9RaoVBtCIubB563DLkxH lX5KJSkweSoI4GnBJIpoW dsHgU6f0H0Hz0YzJedbTO jIM0fPyGpQGe7 X2SkWjh3WSYpmLspCL9lk AWeUKisWb9srJyyiSucPJ 4nKFTonqogx705JhRug3d kIDEwcHQgVGlt CCS8W32ah5P4ELNuMRXiP BT7qDE5aU8aiIpbzfmelL VmdDsgdmVydGljYWwtYWx rC416JHVbxDfo OsBJNvy5B0XxVhj3LHUvy PksMW4mmYFkKVttDq0isS krqPjrTC7jRGQaojmas93 5FfZfo3qtTTWw gTRoAWzuHJE3I60qv0C6Z FAyMMIvDRL9zGA5mS4geQ lnbjogbGVmdDsgdmVydGl gEGoiXLpgI221 DXAyqScqQj3AXrw7M9JmE yo1GIIvxCjzFX8leGUzJM xvOw5djHkhqMvyYN6lSOV moiabg110GuVz j1kcEGEppOFiLZdyLTC2L 73xx3V4HGGvXERcCKR3fD C0aJ6nkGisbrgdoISoxJq gdmVydGljYWwt JPiuG682SJUjbGntMnYyj WVyOjwvdGQ+EQ34kh35Q2 MxIjorQwi5KFKbKAT0tDS 4rY6vBLVvJUqg c3R (more content not included)... [facility] Provider [facility] 06-03-2024 Provider Orders [id number] .[id number] [facility] hCG Quantitativeon 5 hCG Quantitative 98.7 mIU/mL High 0.0-0.6 [facility] Comment on above: Result Comment: Post -Menopausal Reference Range is: 0.1-11.6 mIU/mL Performed By: #### [id number] #### [facility] (DEFAULT) [address] [place] [address] Provider Ord[place] 06-01-2024 Provider Orders [id number]# [facility] Quantitative 366.4 mIU/mL High 0.0-0.6 [facility] Comment on above: Result Comment: Post -Menopausal Reference Range is: 0.1-11.6 mIU/mL Performed By: #### [id number] ####[facility] (DEFAULT)[address] [place] [id number] BASIC METABOLIC PANLon 05-30 Anion gap [Moles/Vol] 8 mmol/L Normal 5-15 [facility] Comment on above: Performed By: #### N UM #### [facility] ([id number]) [address] [place] [address], [place] [address] Calcium [Mass/Vol] 8.9 mg/dL Normal 8.5-10.5 [facility] Comment on above: Performed By: #### N UM #### [facility] ([id number]) [address] [place] [address] Chloride [Moles/Vol] 108 mmol/L Normal 98-109 [facility] Comment on above: Performed By: #### N UM #### [facility] ([id number]) [address] [place] [address]938 CO2 [Moles/Vol] 21 mmol/L Low 22-32 [facility] Comment on above: Performed By: #### N UM #### [facility] ([id number]) [address] [place] [address]60 Creatinine [Mass/Vol] 0.60 mg/dL Normal 0.40-1.00 [facility] Comment on above: Result Comment: METH OD TRACEABLE TO IDMS STANDARD Performed By: #### N UM #### [facility] ([id number]) [address] [place] [address]19 eGFR (CKD-EPI) NON-RACE DEPENDENT >90 Normal >59 [facility] Comment on above: Result Comment: Reported eGFR is based on the CKD-EPI 2021 equation that does not use a race coefficient. Performed By: #### N UM #### [facility] ([id number]) [address] [place] [address]808 Glucose [Mass/Vol] 99 mg/dL Normal 65-99 [facility] Comment on above: Performed By: #### N UM #### [facility] ([id number]) [address] [place] [address] 85379 Potassium [Moles/Vol] 3.7 mmol/L Normal 3.5-5.0 [facility] Comment on above: Performed By: #### N UM #### [facility] ([id number]) [address] [place] [address]303 Sodium [Moles/Vol] 137 mmol/L Normal 134-146 [facility] Comment on above: Performed By: #### N UM #### [facility] ([id number]) [address] [place] [address] 35603 Urea nitrogen [Mass/Vol] 10 mg/dL Normal 5-23 [facility] Comment on above: Performed By: #### N UM #### [facility] ([id number]) [address] [place] [address] 37080 CBC AND AUTO DIFFon 05-30-19 25 ABSOLUTE BASOPHIL 0.1 X10E9/L Normal 0.0-0.2 [facility] Comment on above: Performed By: #### N UM #### [facility] ([id number]) [address] [place] [address] 62513 ABSOLUTE NEUTROPHIL 5.9 X10E9/L Normal 1.5-6.6 [facility] Comment on above: Performed By: #### N UM #### [facility] ([id number]) [address] [place] [address] 52115 Basophils/100 WBC (Bld) 0.9 % Normal [facility] Comment on above: Performed By: #### N UM #### [facility] ([id number]) [address] [place] [address] 11768 Eosinophils (Bld) [#/Vol] 0.1 10*3/uL Normal 0.0-0.4 [facility] Comment on above: Performed By: #### N UM #### [facility] ([id number]) [address] [place] [address] 65528 Eosinophils/100 WBC (Bld) 0.7 % Normal [facility] Comment on above: Performed By: #### N UM #### [facility] ([id number]) [address] [place] [address] 13141 Erythrocyte distribution width (RBC) [Ratio] 14.8 % Normal 11.5-15.0 [facility] Comment on above: Performed By: #### N UM #### [facility] ([id number]) [address] [place] [address] 97066 Hematocrit (Bld) [Volume fraction] 37.5 % Normal 35-47 [facility] Comment on above: Performed By: #### N UM #### [facility] ([id number]) [address] [place] [address] 30398 Hemoglobin (Bld) [Mass/Vol] 12.3 g/dL Normal 11.7-15.5 [facility] Comment on above: Performed By: #### N UM #### [facility] ([id number]) [address] [place] [address] 30847 Lymphocytes (Bld) [#/Vol] 4.5 10*3/uL High 1.0-3.5 [facility] Comment on above: Performed By: #### N UM #### [facility] ([id number]) [address] [place] [address] 57149 Lymphocytes/100 WBC (Bld) 39.5 % Normal [facility] Comment on above: Performed By: #### N UM #### [facility] ([id number]) [address] [place] [address] 65553 MCH (RBC) [Entitic mass] 27.0 pg Normal 27-34 [facility] Comment on above: Performed By: #### N UM #### [facility] [facility] ([id number]) [address] [place] [address] 48378 MCHC (RBC) [Mass/Vol] 32.8 g/dL Normal 32-36 [facility] Comment on above: Performed By: #### N UM #### [facility] ([id number]) [address] [place] [address] 93255 MCV (RBC) [Entitic vol] 82 fL Normal 80-100 [facility] Comment on above: Performed By: #### N UM #### [facility] ([id number]) [address] [place] [address] 44908 Monocytes (Bld) [#/Vol] 0.8 10*3/uL Normal 0-0.9 [facility] Comment on above: Performed By: #### N UM #### [facility] ([id number]) [address] [place] [address] 27504 Monocytes/100 WBC (Bld) 7.2 % Normal [facility] Comment on above: Performed By: #### N UM #### [facility] ([id number]) [address] [place] [address] 21121 Neutrophils/100 WBC (Bld) 51.7 % Normal [facility] Comment on above: Performed By: #### N UM #### [facility] ([id number]) [address] [place] [address] 38602 Platelet mean volume (Bld) [Entitic vol] 8.9 fL Normal 7-12 [facility] Comment on above: Performed By: #### N UM #### [facility] ([id number]) [address] [place] [address] 62872 Platelets (Bld) [#/Vol] 393 10*3/uL Normal 150-450 [facility] Comment on above: Performed By: #### N UM #### [facility] ([id number]) [address] [place] [address] 65828 RBC COUNT 4.56 X10E12/L Normal 3.80-5.20 [facility] Comment on above: Performed By: #### N UM #### [facility] ([id number]) [address] [place] [address] 06548 WBC (Bld) [#/Vol] 11.3 10*3/uL High 4.0-11.0 [facility] Comment on above: Performed By: #### N UM #### [facility] ([id number]) [address] [place] [address] 08072 HCG ( test) Ql (U)o n 05-30-2024 Beta HCG ( test) Ql (U) Positive Abnormal NEG [facility] Comment on above: Performed By: #### N UM #### [facility] ([id number]) [address] [place] [address] 89723 HCG.beta subunit IA 3rd IS Q non 05-30-2024 HCG.beta subunit Qn 612 m[IU]/mL Normal [facility] Comment on above: Result Comment: NEW [...] trophoblastic or nontrophoblastic neoplasms. Performed By: #### N UM #### [facility] ([id number]) [address] [place] [address] 79213 URN MACROSCOPIC NURon 2024 BILIRUBIN NEHA Negative Normal NEG [facility] Comment on above: Performed By: #### N UM #### [facility] ([id number]) [address] [place] [address] [place] [address] BLOOD/HGB NEHA MODERATE Abnormal NEG [facility] Comment on above: Performed By: #### N UM #### [facility] ([id number]) [address] [place] [address] [place] [address] GLUCOSE NEHA Negative Normal NEG [facility] Comment on above: Performed By: #### N UM #### [facility] ([id number]) [address] [place] [address] [place] [address] KETONES NEHA Negative Normal NEG [facility] Comment on above: Performed By: #### N UM #### [facility] ([id number]) [address] [place] [address] 20008 LEUKOCYTE ESTERASE NEHA Negative Normal NEG [facility] Comment on above: Performed By: #### N UM #### [facility] ([id number]) [address] [place] [address] [place] [address] NITRITE NEHA Negative Normal NEG [facility] Comment on above: Performed By: #### N UM #### [facility] ([id number]) [address] [place] [address] [place] [address] PH NEHA 6.0 Normal 5.0-8.5 [facility] Comment on above: Performed By: #### N UM #### [facility] ([id number]) [address] [place] [address] [place] [address] PROTEIN NEHA Negative Normal NEG [facility] Comment on above: Performed By: #### N UM #### [facility] ([id number]) [address] [place] [address] [place] [address] SPECIFIC GRAVITY NEHA 1.020 Normal 1.003-1.035 [facility] Comment on above: Performed By: #### N UM #### [facility] ([id number]) [address] [place] [address] [place] [address] UROBILINOGEN NEHA 0.2 eu/dL Normal <1.1 [facility] Comment on above: Performed By: #### N #### [facility] ([id number]) [address] [place] [address], [place] [address] US PREG LESS THAN 14 WKS WIT [...] Arauz MD on 05/30/2024 10:23 PM Normal [facility] PREG QUANT HCGon 025 HCG QUANTITATIVE 280 mIU/mL [facility] Comment on above: 5-50 0.2-1 WEEK 50-500 1-2 WEEKS 100-5,000 2-3 WEEKS 500-10,000 3-4 WEEKS 1,000-50,000 4-5 WEEKS 10,000-100,000 5-6 WEEKS 15,000-200,000 6-8 WEEKS 10,000-100,000 2-[address] [facility] PREG QUANT HCGon 025 HCG QUANTITATIVE 119 mIU/mL [facility] Comment on above: 5-50 0.2-1 WEEK 50-500 1-2 WEEKS 100-5,000 2-3 WEEKS 500-10,000 3-4 WEEKS 1,000-50,000 4-5 WEEKS 10,000-100,000 5-6 WEEKS 15,000-200,000 6-8 WEEKS 10,000-100,000 2-[address] [facility] CBC AND AUTO DIFFon 05-01-19 25 ABSOLUTE BASOPHIL 0.1 X10E9/L Normal 0.0-0.2 [facility] Comment on above: Performed By: #### Shakeel [facility], 1987-08 #### [facility] ([id number]) [address] [place] [address] 63285 ABSOLUTE NEUTROPHIL 8.0 X10E9/L High 1.5-6.6 [facility] Comment on above: Performed By: #### Shakeel [facility], 1987-08 #### [facility] ([id number]) [address] [place] [address] 72140 Basophils/100 WBC (Bld) 0.8 % Normal [facility] Comment on above: Performed By: #### Shakeel [facility], 1987-08 #### [facility] ([id number]) [address] [place] [address] 39725 Eosinophils (Bld) [#/Vol] 0.1 10*3/uL Normal 0.0-0.4 [facility] Comment on above: Performed By: #### Shakeel [facility], 1987-08 #### [facility] ([id number]) [address] [place] [address] 39412 Eosinophils/100 WBC (Bld) 0.5 % Normal [facility] Comment on above: Performed By: #### Shakeel [facility], 1987-08 #### [facility] ([id number]) [address] [place] [address] 85636 Erythrocyte distribution width (RBC) [Ratio] 14.9 % Normal 11.5-15.0 [facility] Comment on above: Performed By: #### Shakeel [facility], 1987-08 #### [facility] ([id number]) [address] [place] [address] 89258 Hematocrit (Bld) [Volume fraction] 38.2 % Normal 35-47 [facility] Comment on above: Performed By: #### Shakeel [facility], 1987-08 #### [facility] ([id number]) [address] [place] [address] 62677 Hemoglobin (Bld) [Mass/Vol] 12.8 g/dL Normal 11.7-15.5 [facility] Comment on above: Performed By: #### Shakeel [facility], 1987-08 #### [facility] ([id number]) [address] [place] [address] 05191 Lymphocytes (Bld) [#/Vol] 3.2 10*3/uL Normal 1.0-3.5 [facility] Comment on above: Performed By: #### Shakeel [facility], 1987-08 #### [facility] ([id number]) [address] [place] [address] 88449 Lymphocytes/100 WBC (Bld) 25.8 % Normal [facility] Comment on above: Performed By: #### Shakeel [facility], 1987-08 #### [facility] ([id number]) [address] [place] [address] 43290 MCH (RBC) [Entitic mass] 27.0 pg Normal 27-34 [facility] Comment on above: Performed By: #### Shakeel [facility], 1987-08 #### [facility] ([id number]) [address] [place] [address] 81528 MCHC (RBC) [Mass/Vol] 33.6 g/dL Normal 32-36 [facility] Comment on above: Performed By: #### Shakeel [facility], 1987-08 #### [facility] ([id number]) [address] [place] [address] 43287 MCV (RBC) [Entitic vol] 80 fL Normal 80-100 [facility] Comment on above: Performed By: #### Shakeel [facility], 1987-08 #### [facility] ([id number]) [address] [place] [address] 57545 Monocytes (Bld) [#/Vol] 0.9 10*3/uL Normal 0-0.9 [facility] Comment on above: Performed By: #### Shakeel [facility], 1987-08 #### [facility] ([id number]) [address] [place] [address] 18904 Monocytes/100 WBC (Bld) 7.3 % Normal [facility] Comment on above: Performed By: #### Shakeel [facility], 1987-08 #### [facility] ([id number]) [address] [place] [address] 40218 Neutrophils/100 WBC (Bld) 65.6 % Normal [facility] Comment on above: Performed By: #### Shakeel [facility], 1987-08 #### [facility] ([id number]) [address] [place] [address] 79398 Platelet mean volume (Bld) [Entitic vol] 8.5 fL Normal 7-12 [facility] Comment on above: Performed By: #### Shakeel [facility], 1987-08 #### [facility] ([id number]) [address] [place] [address] 88123 Platelets (Bld) [#/Vol] 412 10*3/uL Normal 150-450 [facility] Comment on above: Performed By: #### C [facility]AK [facility], 1987-08 #### [facility] ([id number]) [address] [place] [address] 45207 RBC COUNT 4.75 X10E12/L Normal 3.80-5.20 [facility] Comment on above: Performed By: #### Shakeel [facility], 1987-08 #### [facility] ([id number]) [address] [place] [address] 92189 WBC (Bld) [#/Vol] 12.3 10*3/uL High 4.0-11.0 [facility] Comment on above: Performed By: #### Shakeel [facility], 1987-08 #### [facility] ([id number]) [address] [place] [address] 48931 CHLAMYDIA/GC BY PCRon 2024 CHLAMYDIA/GC BY PCR [...] are dependent on adequate specimen collection. Normal [facility] Comment on above: Performed By: #### Shakeel #### [facility] ([id number]) [address] [place] [address], [address] [place] [address] COMPREHENSIVE METABOLIC PANE Alex 05-01-2024 Albumin [Mass/Vol] 4.1 g/dL Normal 3.2-5.3 [facility] Comment on above: Performed By: #### Shakeel [facility], 1987-08 #### [facility] ([id number]) [address] [place] [address] 46370 ALP [Catalytic activity/Vol] 92 U/L Normal 39-130 [facility] Comment on above: Performed By: #### C [facility], 1987-08 #### [facility] ([id number]) [address] [place] [address] 07862 ALT [Catalytic activity/Vol] 19 U/L Normal 0-31 [facility] Comment on above: Performed By: #### C [facility], 1987-08 #### [facility] ([id number]) [address] [place] [address] 33483 Anion gap [Moles/Vol] 7 mmol/L Normal 5-15 [facility] Comment on above: Performed By: #### Shakeel [facility], 1987-08 #### [facility] ([id number]) [address] [place] [address] 41492 AST [Catalytic activity/Vol] 17 U/L Normal 0-41 [facility] Comment on above: Performed By: #### Shakeel [facility], 1987-08 #### [facility] ([id number]) [address] [place] [address] 79863 Bilirubin [Mass/Vol] 0.3 mg/dL Normal 0.3-1.2 [facility] Comment on above: Performed By: #### C [facility], 1987-08 #### [facility] ([id number]) [address] [place] [address] 20452 Calcium [Mass/Vol] 8.7 mg/dL Normal 8.5-10.5 [facility] Comment on above: Performed By: #### [facility], 1987-08 #### [facility] ([id number]) [address] [place] [address] 15625 Chloride [Moles/Vol] 109 mmol/L Normal 98-109 [facility] Comment on above: Performed By: #### C [facility], 1987-08 #### [facility] ([id number]) [address] [place] [address] 06940 CO2 [Moles/Vol] 23 mmol/L Normal 22-32 [facility] Comment on above: Performed By: #### C [facility], 1987-08 #### [facility] ([id number]) [address] [place] [address] 67719 Creatinine [Mass/Vol] 0.61 mg/dL Normal 0.40-1.00 [facility] Comment on above: Result Comment: METH OD TRACEABLE TO IDMS STANDARD Performed By: #### C [facility], 1987-08 #### [facility] ([id number]) [address] [place] [address] 86298 eGFR (CKD-EPI) NON-RACE DEPENDENT >90 Normal >59 [facility] Comment on above: Result Comment: Reported eGFR is based on the CKD-EPI 2020 equation that does not use a race coefficient. Performed By: #### C [facility], 1987-08 #### [facility] ([id number]) [address] [place] [address] 12664 Glucose [Mass/Vol] 92 mg/dL Normal 65-99 [facility] Comment on above: Performed By: #### C [facility], 1987-08 #### [facility] ([id number]) [address] [place] [address] 75236 Potassium [Moles/Vol] 3.6 mmol/L Normal 3.5-5.0 [facility] Comment on above: Performed By: #### C [facility], 1987-08 #### [facility] ([id number]) [address] [place] [address] 57943 Protein [Mass/Vol] 7.1 g/dL Normal 6.0-8.0 [facility] Comment on above: Performed By: #### C [facility], 1987-08 #### [facility] ([id number]) [address] [place] [address] 86506 Sodium [Moles/Vol] 139 mmol/L Normal 134-146 [facility] Comment on above: Performed By: #### C [facility], 1987-08 #### [facility] ([id number]) [address] [place] [address] 63590 Urea nitrogen [Mass/Vol] 13 mg/dL Normal 5-23 [facility] Comment on above: Performed By: #### C [facility], 1987-08 #### [facility] ([id number]) [address] [place] [address] 51242 CRP [Mass/Vol]on 05-01-2024 C REACTIVE PROTEIN 1.4 mg/dL High 0.000-0.744 [facility] Comment on above: Performed By: #### C [facility], 1987-08 #### [facility] ([id number]) [address] [place] [address] 01926 HCG ( test) Ql (U)o n 05-01-2024 Beta HCG ( test) Ql (U) Negative Normal NEG [facility] Comment on above: Performed By: #### 2 106-3 #### [facility] ([id number]) [address] [place] [address] 96175 URINE CULTUREon 05-01-2024 Bacteria identified Cx Nom (U) CULTURE RESULTS <10,000 ORGANISMS/ML NORMAL URO GENITAL JONNY Normal [facility] Comment on above: Performed By: #### 6 30-4 #### [facility] ([id number]) [address], [address] [place] [address] URN MACROSCOPIC NURon 2024 BILIRUBIN NEHA Negative Normal NEG [facility] Comment on above: Performed By: #### N UM #### [facility] ([id number]) [address] [place] [address] 03791 BLOOD/HGB NEHA Negative Normal NEG [facility] Comment on above: Performed By: #### N UM #### [facility] ([id number]) [address] [place] [address], [place] [address] GLUCOSE NEHA Negative Normal NEG [facility] Comment on above: Performed By: #### N UM #### [facility] ([id number]) [address] [place] [address] [place] [address] KETONES NEHA Negative Normal NEG [facility] Comment on above: Performed By: #### N UM #### [facility] ([id number]) [address] [place] [address] [place] [address] LEUKOCYTE ESTERASE NEHA Negative Normal NEG [facility] Comment on above: Performed By: #### N UM #### [facility] ([id number]) [address] [place] [address] [place] [address] NITRITE NEHA Negative Normal NEG [facility] Comment on above: Performed By: #### N UM #### [facility] ([id number]) [address] [place] [address] [place] [address] PH NEHA 6.5 Normal 5.0-8.5 [facility] Comment on above: Performed By: #### N UM #### [facility] ([id number]) [address] [place] [address] [place] [address] PROTEIN NEHA Negative Normal NEG [facility] Comment on above: Performed By: #### N UM #### [facility] ([id number]) [address] [place] [address], [place] [address] SPECIFIC GRAVITY NEHA >=1.030 Normal 1.003-1.035 [facility] Comment on above: Performed By: #### N UM #### [facility] ([id number]) [address] [place] [address], [place] [address] UROBILINOGEN NEHA 0.2 eu/dL Normal <1.1 [facility] Comment on above: Performed By: #### N UM #### [facility] ([id number]) [address] [facility] [facility] [place] [address] [place] PELVIC WITH TRANSVAGINAL AND DUPLEXon 05-01-2024 [...] Alves MD on 05/01/2024 1:36 PM Normal [facility] VAGINITIS PANEL PCRon 2024 VAGINITIS PANEL PCR [...] clinical presentation to determine patient diagnosis. Normal [facility] Comment on above: Performed By: #### V PPCR #### [facility] ([id number]) [address] [place] [address], [address] [place] [address] Coding Summaryon 04-29-2024 Coding Summary HTMLBase 64 YdopgxprEDn4kPi+PGhlY WQ+PQ7PZRQhK91plCMwxD 0hO6HAFJkQPsczOSPGYPq QIjFoxzKpAB7ylMIaPCJd IC8+BR4rLFIrAacgeMElu 8R5pGJ3V48ual0tXJmtpL C3ZDKfVuKmbzfki9qtgYl 6IDcuNmluOyBt MXTybK13GHZ5sL58Bd29a TKkxJSpu9oiuOu4RaKiTZ FtEXZ1eBtjPEgzi5KvQYN rP58iaIMty8X1 RDGdqXuvaMUdKkTmnYT1a U7bUAxgsyccp0ymudgsMv z2gn71dBNac4D5wXQ9Z3H kfwH8FYLnlTJh LadhxNCWeY9iiecko6cmu jleBxXgXCZyOJw8VKl6FZ NaiVhcOtCeVK94CDL5GXH puiYhV0PePRSp sAdnJzP1u7P3Jt2CO3ZCF dtiL4ZSABRZTWecuAK+PC 71go84S1RaPvyhDqg0TVJ zMAI2jFO0dU8s PTHwQScva6E4eIX4G5Hiy mJaxe0qz9whMKVuZLzhX6 7flNUum1S9QPYhqUO5UYZ xgJrfNlWzeH37 Oyc+EOSszOchs7BkAgcks 4lov5gbrNa0EbpfKHIfba XaaUivZCV0v2EsOy3rITK faPM1gKU2kA0q CdJsAeB3HPfuU222ZkFlf VNuVbbiV67jQ8NvaIN+PH RtQfm7EPHhoVnpYX6pM2Q hZGRpbmctbGVm rNgjES6vYWMfgqmuDYVyq L5sBFFiP9p6XrBfGlT0CQ igY8YkFKVcdzysHb11hD9 oFuRuVeX6JFwu B6VjjfO7JFQrgKUzFBkxM GC4J26qb3N4AMToVNEwQI S1gAY9rE1pbFzitjufcBS mdDsgdmVydGlj DEboUXocE993AVObaTrxR kNvZGluZyBEYXRlOiAgMD EvMjIvMjAyNTwvdGQ+PHR pNHO4gYyhQBKn kKEkRHvbRv1hsSbgsLxiM U8wQBJcafpjXJKliG5nTG WyiKKoiHeiNO1gRKRdwye vm611BbLgXJI1 AHRosGUgD3MwrN3mBlUqP VNrVDDkQ0IynWUvDTblO2 08QSdcFuB2ZTDqxqWcH7X sLWFsaWduOiB0 s4D1Ab8Fr5YlsoedF4Xod AUeJjCwKobiLZj6J1XwKd wvdHI+VW76ADRgLZ38STp 8TKP5jDvyAIsb XLUbL1AcoJ6fNaZdBKTbU GRkOyc+PHRhYmxlIHdpZH RoPScxMDAlJyBzdHlsZT0 wAb4xGWXlGTRp hOmyqTKsNbYxx5twIDFqH AopJN1rrPfvL3BqfMP6QE Cbl4a6Es30L78tE0UzvVJ +HAQuiEP7nYP8 vL6aXjLzAcE0ZHqiY764G dRmxPIbAvrdl0hdn2cibJ i3UeH6TLMmjeYlpFhrZDT 9y8XzJm95T51j IHdpZHRoPSIxNSUiIHZhb Yljgf6ozQ3dHy0+PGNvbC M4xOT7nG9fYhZqYvP6MHj aL211NlElrKGx Eqisg6qyo0vfqXq2BxQdM AHjkxXhhOpvAXR6z7IdOc 24X4XopDosa7ToFad6qf6 2yXLho0M5iOO6 K5GeEGHkaeflxRWsmWthT J7jJLBuzwpjAYGhaT1uON MeE3m4FjZeQnL3NSoqV7X hmfL9FVZfpYVg ALRbzPRXkC2uaeqlm4gns hdeBzSfZYWeIFx1MVp8OT IuaXsoJmKlQKS2NmT6MNT 2qIMmaU2twRpy xfheuE1dWpg+SYD5sFHnt WGYEW4eNermlSM+PHRkIH P1uThoVMwoPXBsvF4wOZQ rS0u0EzLcMzB1 SExrT5BbdnL9QTEapTWdN BRgaHHKxT4isvwjj0bsst dxIzCeFCFmVLo4ZRl5CPI saWduOiBsZWZ0 ZyY8GWS1hIBiqX1ncLcnv akrcL4uEnv+QmlydGggRG C2BHc5K3TsLmq6MRXijUk hUK7wyKKhKIsc Ga1brSkjoEbkNC0rFUXth onyk347OdSzv0vpFYIdxM VvLDocTAM5W79nm6U9LOZ qYDBqVBQ8hHE4 zQ5xeUatxugrpEDllOeat wPrfTbdIIccHPyaC597ZB WxsEilZcJdJWq1W3YfMul 9YAOmtTqvIZ6t hDWkMSlzAj3koFcchCqjF C7pBNIllewbh261TfFnu6 naEERdeTIkSJiyCTO9T18 ia4D0ACSoLCIk KNS3pKJ6oU9wrZbztjkej GVmdDsgdmVydGljYWwtYW ygT180BOAhiNnxCeValYt 8G8PyPsv0HRWv xNwjQA0nhBUxRRxxPa4rs UfukHhbEJ7eMVRwuedaw7 73UeMnx9sdQSVlaEEsLHm xMMN2V41ju2R9 OEXoWEBkGIA7pOR3fZ2sm GlnbjogbGVmdDsgdmVydG lqOLvzGDjnZ355TDJphIw nPlBhdGllbnQg LImvKLg4R5EdAkvfuEI+P Q86VIGiPJ25hQQzzMGwy1 kidKx6VkZhFREsLYR2oKs aVUzfu3MyYQZg O47ayLEfo9X2TCMqrWbxj AUtWgZtcGK9lG4fRFljhs mdv1ftqzcyEewqb7ouqp5 2vK65G38tHAwj ZHRoPSIzMCUiIHZhbGlnb j5qwV3ySd3+QIUznWD5oW Q7tS2zNULkXqJ5GPyrK98 9InRvcCIvPjxj h8jkd3mduRa5NjD9FETzv aLyjOsxEQQ5b3LoDc39K1 9sIHdpZHRoPSIyMCUiIHZ ypGrwlt2pcY5h Ii8+PCOuoXD6gAP1oG2pR rYtVyK2YSxrU009DjAzrK FeQvtjK16nY8KwmTE+PHR rKms7UURciEkr LS0uvIPxHUihHh5mDQY1Q pViRuWoZKzcS9TeEZZafg nsrksjiCY7XOUjNRJbiF1 1Jn3hiAzySMXx hATBnZ7zgpkel0xlpofcO pCpSUIhVHp3RCs8SRGjnO wbCiQfTHI4NhG8PCW4mGD plB9qzEncmhep hT2eK0EzHWJjqijeLq96t S2tKlSkGzT0PKrxEil+R0 uVOmQGHGuyP1gHMWBRJIq NUC0DCGjakWO+ PXRaVOY9aXsoEXgqDIJlv Q1qKUFaV6x4KuYbZpZ4JO bcX7YhJLXajagcAg27fO8 gZfLeAfY8WUay W4TqoqV0PGLbnPWpYUnjX DN6T99zn4Z9HXQoIYHjVM A8kOM5wC5lmMihdgqmrXB mdDsgdmVydGlj TShzJQyjE355ALSjnLfqY mG0BgMfEkJrPIJ8U1GoMz a9WUIobPcyMF1miGJwGJz gEo6fkKpgtYyh JS8jWIGcecoeHANuaG1kU QMfxRMnmNpaJH1jGGInmq gbf046QfXkPQL9TFBsiZR xW8OiiS8uJqBc AGMmIHAgD3WfjXVnWWfuZ 922TThiPpV8TWNlxgKzB6 YtFPBpfVjzUcC6m0K0Cm2 yMiBZZWFyczwv dGQ+EKPwEVF1xQmhXTdcP GArvT4vDBSyW6s3YxGgDw G6WHzsJ3BgDYCalcrfUw5 2bG6zUqZhBhA7 QPvvB8DyucL4OAOpgEVcF KlcQAO2C03fe4O0BNBhAR FxLQJ5oEJ7hS4rpZvlfnp gbGVmdDsgdmVy vWkpXXnvFPcbX063QAVsq DsnPkZFTUFMRTwvdGQ+PH IvGNN1gMngABjzTOOmeT8 nMBGuS9o5PsEk TrT0NGpjM1XkTZGwivpwM r16kL2vDaXlVnF9FMchL1 EreeK5MGXrjCHdDYzdGFP 6O95np2J2ZDLt DEJfMJE2gPK1bT7dtYlfs jogbGVmdDsgdmVydGljYW tkHKtiN280ZAAlrRhfOxK yHZHqUK3saPcb dGQ+LS22so47B7StOzkuQ ge6EDFzYJC9hJZ8lG7wAA KcWRndp1X3uFT9W2FgfaL jxe4we0ssYEHg DWyjS86ciSKhp3T4TOHom JC3VEFriWscEjEbyU69Mb c+WHKusOjfb4RxAjsla8i ul0jwhPo5ZsAz HBZhemRbnAasDHR6j7RbF q75T40sXBdqLQJhHNLxGC SmZXGpaBrosl4vcL4gLn7 +UNQnkNZ5eKF2 vU9yOkOpUcZ2SAoaG643V tPujWCuCskke3eej3xakE s7YxKkBERyzeUytItsFFW 5p0EsVh74H7Wx yCdcv4HzSkv5zj64dHYuw 1Z6rKZ6B7YrXUVeupvghR WbhEpeFZ4lFHWidjgwWXD cbO8dTROkU5p3 OrKbAgV6CFgmY7TrjhP3E NUsgEMxPQNwhSOBvS1ias agp7pnbhfzNqNkEYMgYCp 0NOo6XEUmpGqk BhHcZTF8JzL8XWZ7eSKqr U8wzGjooeyxdG3kIyx+UG k8m5ipgXCoBV8pbRQ0CR3 8AL95cJSsx3Z8 bOC5D4OmGCLgrsahcfiur BM7CNKlGMEkyQ27Oj5ddP pgBp1kNHSoFQV0KROqoSD oS9CkiB2hYxIt IFUaKAZwS3DggKAwABwbR 396BTprWfS3YQHuxyUvV4 ImSWDkcJivQpD7r7X0Tj2 [id number] cHQyi8F3aJW4W1ZaFEAkk uomghwcpQO9DYHhUPPmjF 97Ch2yyWqdJn5hINZkRVC 6DPWrgPIwH1Hl jR1aPoZvRAYyUERgG8Cai FIoFRjoT114LIajRlG9KA AmjnQvM4KgWGWzcRreHsX 5l9V9Zj2KJp23 BJ51OX88vRUxc2Z2tUY2P 6IaMVStcyhayqdpzCD2VW TfWXDoiZ95Ig2xwFazCy6 qTXTkDCK7LXZo vVOuR0CodG1aKnHeBSMbG YTwS2WrrCAdALkhX404QS oqUxV5EJWmqpNqM0RdFDC cuTsjMxA0y1C4 Uy5QBWgdjlf5T4LuNlqgo HI+TW64PTNePV36sNNrdT Yqv7gaqWk1HiZrKDJqGZJ 3cQzfXYect1Ly ZXI (more content not included)... Normal [facility] XR CHEST 1 VWon 04-22-2024 XR CHEST 1 VW XR CHEST 1 VW Portable chest: HISTORY: Cough and fever. The chest was obtained. Right upper lobe density is most likely represent granulomas. Lungs otherwise clear. There is no cardiac contour abnormality. No effusion or pneumothorax. IMPRESSION: No acute findings. Finalized by Yvan Oseguera MD on 04/22/2024 1:52 PM Normal [facility] ED Clinical Summaryon 2024 ED Clinical Summary [facility] - Emergency Department [address] [place] [id number] ED Clinical Summary PERSON INFORMATION Name: LIA DESAI Age: 23 Years Sex: FEMALE : 2000 MRN: Acct#: Visit Reason: Body aches; Cough; FEVER, COUGH Arrival: 04/19/2024 08:50:39 Discharge: 04/19/2024 09:24:00 LOS: 000 00:34 Check In: 04/19/2024 08:50:39 Checkout:04/19/2024 09:24:00 Address: [address] [place] [id number] PCP: Provider, Unlisted PROVIDER INFORMATION Provider Role Assigned Unassigned Abner Harvey MD ED Provider 04/19/2024 09:05:18 Zara Jayne TECHNICIAN TERMINAL AND REPEATER Nurse 04/19/2024 09:05:51 VITALS INFORMATION Vital Sign [...] Associated Diagnoses: Viral URI with cough Author: Abenr Harvey MD Basic Information Time seen: Date [...] reactions were documented.. Medications: (Selected) Prescriptions Prescribed Zeeland Saline Mist 0.65% nasal spray: 2 spray(s), !-Nasal, QID, for 7 day(s), 1 EA, 0 Refill(s) metroNIDAZOLE 0.75% vaginal gel with applicator: 1 jamel, Vaginal, Once, 70 gm, 0 Refill(s). Past Medical/ Family/ Social History Medical history: Resolved Disease caused by 2019 novel coronavirus ([id number]): Onset on 11/23/2020 at 20 years. Resolved. Comments: 11/23/2020 CDT 16:07 CDT - SYSTEM Problem added by Rule (IC_COVID19_AUTO_PROB CAMI) following 2019 Novel Coronavirus (CoVID-19), MILY L from Nasopharyngeal Swab collected on 22-NOV-2020 16:44:00 EDT tested positive for COVID-19. no history ([id number]): Resolved. Contact dermatitis (64417156): Resolved. Pharyngitis (5251528734): Resolved. Cough (03794281): Resolved., Reviewed as documented in chart. Surgical history: Tonsillectomy and adenoidectomy ([id number])., Reviewed as documented in chart. Family history: [...] Never , R (more content not included)... [facility] ED Note - Physicianon 2024 ED Note [...] reactions were documented.. Medications: (Selected) Prescriptions Prescribed Zeeland Saline Mist 0.65% nasal spray: 2 spray(s), !-Nasal, QID, for 7 day(s), 1 EA, 0 Refill(s) metroNIDAZOLE 0.75% vaginal gel with applicator: 1 jamel, Vaginal, Once, 70 gm, 0 Refill(s). Past Medical/ Family/ Social History Medical history: Resolved Disease caused by 2019 novel coronavirus ([id number]): Onset on 11/23/2020 at 20 years. Resolved. Comments: 11/23/2020 CDT 16:07 CDT - SYSTEM Problem added by Rule (IC_COVID19_AUTO_PROB CAMI) following 2019 Novel Coronavirus (CoVID-19), MLIY L from Nasopharyngeal Swab collected on 22-NOV-2020 16:44:00 EDT tested positive for COVID-19. no history (169464308): Resolved. Contact dermatitis (50000063): Resolved. Pharyngitis (2113524296): Resolved. Cough (03979857): Resolved., Reviewed as documented in chart. Surgical history: Tonsillectomy and adenoidectomy ([id number])., Reviewed as documented in chart. Family history: [...] clear, or (more content not included)... Normal [facility] ED Patient Summaryon 025 ED Patient Summary [facility] - Emergency Department [address] [place] [id number] PATIENT DISCHARGE INSTRUCTIONS Patient Information Name: LIA DESAI Age: 23 Years Date of : 2000 Reason For Visit: Body aches; Cough; FEVER, COUGH Arrival Time: 04/19/2024 08:50:39 Primary Care Physician: Provider, Unlisted Attending Physician: Abner Harvey MD Comment: Visit Diagnosis: Diagnoses This Visit Body aches ([id number]) Cough ([id number]) Viral URI with cough (J06.9) The Pharmacy at [facility] is open Saturday through Saturday from [...] alcohol and/or drug addiction problems; contact the [facility] 29/10 Crisis Hotline -text 4hope to [phone]. [...] doctor. Alternatively, you may follow-up with the [facility] if you are not able to see a PCP in the recommended time. Continue with the current treatment as outlined by the ER physician, Dr Harvey. Called the emergency department if you have any questions concern. Return to the emergency department if you have significant symptoms that concerns you. Medication Information: The exam and treatment you received today in the [facility] Emergency Department were for an urgent problem and are not intended as complete care. It is important for you to follow up with a doctor, nurse practitioner, or physician?s commercial lines assistant for ongoing care. If your symptoms [...] so we can reach you if necessary. [facility] Emergency Department has provided you with a complete list of medications post discharge. Please inform your primary education professor/provider of your visit and for further instruction [...] Vaginal once. Refills: 0. sodium chloride nasal (Zeeland Saline Mist 0.65% nasal spray) 2 spray(s) [...] bpm Respiratory Ra (more content not included)... Normal [facility] Progress Note - Nurseon 04-08 Progress Note - Nurse Patient walks to room 6. Patient is alert and oriented X 4. Patient is here for a cough, body aches, fever and sore throat since yesterday. Pt. states she tested herself for covid yesterday and had a faint positive. [Electronically Signed on: 04/19/2024 09:11 EST] Zara July RN [Verified on: 04/19/2024 09:11 EST] Zara July DANIELLE [facility] Coding Summaryon 03-24-2024 Coding Summary HTMLBase 64 EzswrqiaXRi7xZk+PGhlY WQ+OD4RNHQcW06nnCXrfU 7nT9XMFPsFHzorLSMCEAg HIrVjsbQxKY8qsCWmXEMo IC8+OM6iXYNiCmblfADlh 6R8lZQ9K66dsm9yLGtsyD A2TOOsSeVzolxpu4kdmCx 6IDcuNmluOyBt QYHngA51WHE4aY25Pf62a AKabUVlz0wusYu4GoFyKD QoJEX2uTegSTwfz8ToJUT wD05ogCNri3Z6 HZIsdVhhbVJnHsCsaXN2i C3hMElockcba5lpjssrBn j5kp38qERsf4K9oVZ2X5L gffF0AFFhsZOw SnyozYPAjX8bzpuiw9dkg cvyFeFuDQZdBFj8WRl6JD AxxOkiWsTxXS50HDC8XEN pprPyO1UtYUEc zTibAoA6v1C7Mv8JK1YUK lxsS5YAXXBJXIdbwFG+PC 56vb12K0QpUclxTlz0LXK iTMO1mDV9sB1f ORDoIPnne7M4fJW5U2Oln iSjjq1fs1bcSKJvWUseU0 3hiVMok5M7AGQexRZ6WFQ rpJblSeKjuJ49 Oyc+BOTnlMshv7PyDjcbt 9drl9colNk9TwcmSEXauu JptGzfMKY9i4FhJw0cDOP ywBO7fTM4nH7y HrFiOvM3ZSbdR533LtKfc YYtWxyuJ90xM7ZkjFC+PH GqCyw4PDQxgZctVD8yQ7F hZGRpbmctbGVm fAraRZ5dOUPnbgwfKPRmz F9aIBJlR5s4OnYzKnC1EN yaW6NpRAYwdktcGh69kM1 kBlPqQaL3EVsl Y1JishH7BMPnsETrUKtiR EM4I13zj7R3RNPeYUDmHR Y2rSK0nF7klVlezpkwgVW mdDsgdmVydGlj CZtdCGrcR490VHLopRifY kNvZGluZyBEYXRlOiAgMT IvMTcvMjAyNDwvdGQ+PHR fLMY2kVrhTPKa cLTvSAedVq3yiCkgiGaoO R6qBWToevckNDOkdK1kGD MefJMdnUegFA6fROWgrgv lx003GoYiFCB2 VZRrzWZgG1SeeX2bHiLfT RYzAIZgH2XjzOEuLRiuL1 34KZwtYqJ1DGHfkqGcX7G sLWFsaWduOiB0 p1H4Uy0Kr9NygnygB4Kvs VCxImWlXvlaTJa1K5DqQh wvdHI+NF44CDJkHQ45HJu 7YYA1hHeqRXlg ISYrQ9ZvzG6qLdEeNEEmF GRkOyc+PHRhYmxlIHdpZH RoPScxMDAlJyBzdHlsZT0 uTf0rYALhZBEu aHparDReRhGtz4oaOVTyO LbmSY4frAkgC7LcwVW5LM Xcz9s2Rx52E08dY8FlzDI +OAObxHU7pNX2 bI0fQmGnGkN3CXjjD855B yRokEFdVuloy3xkm2segE n7FrQ6NUQtzaHwdXypCDC 0a8MpMf56Z61v IHdpZHRoPSIxNSUiIHZhb Zdris0tyS8sTm6+PGNvbC R1tAY9jU0sVzKxEjW4IFm dL252YlVjxWMm Dborc7chk7gfzBi3HpWkR IWogqKxtJpcCWO6q4NgNg 55L6VkoJnyu6SqOfz5ju8 4bHTqh0L2mIV1 V1UjELNjnrgcyDSxyNsaE A4jAXReujbnRJSksJ1dTH OiO5c6MaKuXeK2SCpzI8U uocH0IIKgjEDb OBWsrFFKbM2epzyzu0jog nzzHwJtTFIpOUt1VId1HD AnnQziSqEbKQK7WtR6VJU 0wCOybM3ejItl prnziZ3tBor+OFM9hQRlz NHKPR3qKeqgkWR+PHRkIH B7rFtvPZlrXIRihY4iNNG qC4c3MyQnHcY2 YFyuN5TjbmH7KMKvjHUwM KMnhDGEvE6cxchja1kwrf qtKsFfULOkOFz8BFg7FPI saWduOiBsZWZ0 IhN1ADV9cBUkrV9ulGiob cmntB3xDyj+QmlydGggRG S4MMl6B8WfApa3NSKcxJp dDN5pjOWzEVyg Hz6lqBeduCqiPD4zYAScx boit687WaCru4esHWWlsN NfDClvJSX9W61cm5Z4QXX hDYAvOEY6lPL1 oU0ohNarwtospUSnvHmuq kPzvRdxQChiZVekA326LH YmbJwqGjCeLJb7H0OkAmg 9OMCgwKxaJB2o pRGiBJnkFc1mvNxaqJzgD O9aAGRodqwvn750OyUwi1 syIKOovNJqXOddUQV2P87 vg5R4PGRgXCKo FCO5hQO1jK8alDjphtyah GVmdDsgdmVydGljYWwtYW ffA359GDBskZuaSxKqpPj 8Y5BuYpb6NSIr bDvqMD6hbJYhAAeyVk2yc BndmYkvRY2tNHJqegvcb0 35KnAzp4ftVNHrkJPqTNf kPSA5Y00ba2I4 KPLyPELpSAI6mKI9pW0ws GlnbjogbGVmdDsgdmVydG sqTAdbHExtA961NHQxxNr nPlBhdGllbnQg ZLfyZSy9C3DvPgwyuEW+P G60HWNvCN70jBMnbFOtb4 lmmUr4PyBaTGVdJGJ3hEx vTJsza2UaXZKx N05kuWWfx9R8IKAteKuxj BYfQaAsqCW4vZ2dMBoflr pxe2qegsssUbyrh4ykby4 0uD04I11eQEbv ZHRoPSIzMCUiIHZhbGlnb l2bmZ9oSa2+WNYvgYC8gH A6zZ6iDTRwMzX9XPulK67 9InRvcCIvPjxj u3ufu1tzcYx5NvO5OVOlp tSsfRcgKAI6z3PwFt09E7 9sIHdpZHRoPSIyMCUiIHZ awNcear0haD6w Ii8+RAWyiDR1mGS1lZ2rA mYtYwZ4CKvkJ442BlKyvY PtLocjW51yG6XvzOK+PHR tMwb2ESUkgGva BY1xwIQpWUlqYp1jZTS4H bQoKsUjXOdxW5CmXZDdfy hapnxiaRC5CBAqKOMjvP9 8Gz0goNhtPBRf aJFXmS4kvaavk4oskeezV mZcWIDoRAh8JNm0EDEptX nbIcZgECZ3MaP1QTU1fTY dwJ2sfVlixnbg pU0xK0KxCUVysoeiDy65e T7nVrOaCzX2VPniAcq+R0 dDFpTYQAjbU3qPHMYQPRs SWX4HPInlaVW+ FEGeTHP8gTczHGdgBVQys W9oMZSbM0c6OzGpGnJ5JV ksV5EuNJXnkxopWx82kO2 kReNyXpW2JTka W1MmtbZ3ZSAsdXUqZKqqG YP5V06rj1K1YSLcPHRsMK J0pZB3rU4zcXriotioxXW mdDsgdmVydGlj CPlpEMnvZ768FFJteQzxC vU6AkIcTvDfMSO5G4PlYg i2KVEvgJueKN5aeDNgMLv vRh8erQmdiRmx GW7gQAUvyexkSUUboK4mO UVmjLVniIstJY1xJGPprm fuo885KwNrVDK2WLFehFS kQ9VzlV0eMwNd UEZqDSGsW4MctXGhEMxfL 156LUhnYoL9UFGxyoHvS8 UhIWYjpVxlKxQ7d7G7Ow2 yMiBZZWFyczwv dGQ+KYBjNGJ4mTuzDRnuJ OGzpT3tVXFoU7l3KlAkCt C3BRlaP5RbDZCuxxpsPu4 9qO0qSkEcDfV1 KPggS4TnfnL7JEJjvTQxW SiiKWY4R09hq8R5RHHxUC SnHUK8bZO7dJ6byGdvaaq gbGVmdDsgdmVy yNgkOFwkIPxfH549CHZyi DsnPkZFTUFMRTwvdGQ+PH NkKMX8oFneKDmwRYXdaS3 bOTCuW9n6SmBp CjP6FUphO5AvURWuaylrN z64gV2gLeSvNvW5VNleR5 OgcdK9QSYbvYMoOOetSJO 8T07if4O3JQSu PSLlBGS4qYM8gX6lvXcbz jogbGVmdDsgdmVydGljYW kxHUxjZ700NCKimOinYeI oWAWgUN0usXvf dGQ+EW85rj66X7EuEtalZ pc0PEMeDKG2jRQ2tF7xXG QvLUxso2C3iHA8R8FtyhD gkd1iw5ygMFXw HEdoU60kaLOpu8F8JXZns WE3RBXhcUkkNnKfjP93Jo c+LVHqxCmrk2FuBmlui3z fi9kceUs7PpMg LJNpwrRmoVobPKO3d5DyQ g66P15rQEuaNYXnJDPnWU IpWYOclDuquf2gpF3yGz6 +AVAihIN4kZD2 jO3eNhYnXqI6NIliR643U cLuiIVcTmjqz2ztw2ysrW j7VyCjPENhfzUjaIptPOX 2e6AgPr17Y9Az iFpiu3NeHid2if61nAXhs 3A0rHJ8A1SjDTYfwniqtQ CglAzmGZ1zEEOqwjfiYYL klM7xQQPdX4e5 VbMgIsV5TIgnC2LbvhY3L LYozLVsSCGzjBZPiF9lid pjj5stokghDnIpHWSqQEg 9HXj9CUIcqIbi TbEwYLO1WyT0ATZ5uXCgu W5bhEkegvfofV3dRek+UG m7s8uzyMAeAN8qwOC8CV6 5FS36lLOpp2I1 xMS2S6OjCCYiblpdfxkqj HT0NDMpAAYxmT41Kt1lyI bdIb0lRNPuXGF9RFXaoCZ oX9YiuT7lXoTs GDZwAJRgT2YgaISeODdkJ 018KOtuWzY9BUCmhvHpO2 CxUOTmnFftVaR5h3N3Qs9 SJW89XP11XV42 rKOqy3D2cMA5D6JdZHAdw uaiuilkrYN4TBCcVAOtnZ 48Qz8jeKuyJu0eOXKlHHS 9BFPjkKPyL3Ks gE9qOfDgIYZlPXAbM7Qal ZKxSRprP109ICceAoK5NJ MolrCvI1FtXTDmpCcuWoB 5s1X8Cd5MFk00 DN13IU53dLCob8O0nWX7S 9HnRMKckbqcuzcctFX7WB NbEYOktF97Xd6mjJkwPi3 iHRXcBOY3FHJw mPKsK2QurV5tHaRhKZAkT FUqI4HstHToUSwnR069WE prTyZ6ZCOisqXuL5FjOYJ xzPtcBqE6k0D7 Dl5YKNbcxni1I1YgSlgzv HI+YI23GUHlWE36mSNpvP Ese5olzIk6MnYjJLDiGLT 9gEswECzql3Yv ZXI (more content not included)... Normal [facility] .Auto Diff 03-20-2024 Auto Geary % 8 % Normal 04-19 [facility] Comment on above: Performed By: #### 1 [id number], 5960184, 6269228, [id number] ####[facility] (DEFAULT)[address] [place] [address] Baso Abs# 0.1 x10 Normal 0.0-0.2 [facility] Comment on above: Performed By: #### 1 [id number], 4207778, 6604951, [id number] ####[facility] (DEFAULT)[address] [place] [address] Basophils/100 WBC (Bld) 1.0 % Normal 0.2-2.0 [facility] Comment on above: Performed By: #### 1 [id number], 1129314, 7414545, [id number] ####[facility] (DEFAULT)[address] [place] [address] Eos Abs# 0.1 x10 Normal 0.0-0.4 [facility] Comment on above: Performed By: #### 1 [id number], 9678424, 2503065, [id number] ####[facility] (DEFAULT)[address] [place] [address] Eosinophils/100 WBC (Bld) 0.9 % Normal 0.9-4.0 [facility] Comment on above: Performed By: #### 1 [id number], 1206572, 8868174, [id number] ####[facility] (DEFAULT)[address] [place] [address] Lymph Abs# 2.5 x10 Normal 1.3-2.9 [facility] Comment on above: Performed By: #### 1 [id number], 0502657, 1810745, 34152753 ####[facility] (DEFAULT)[address] [place] [address] Lymphocytes/100 WBC (Bld) 32 % Normal 14-48 [facility] Comment on above: Performed By: #### 1 [id number], 8667557, 2939067, 19737808 ####[facility] (DEFAULT)[address] [place] [address] Geary Abs# 0.6 x10 Normal 0.0-0.8 [facility] Comment on above: Performed By: #### 1 [id number], 9872088, 6922449, 68383688 ####[facility] (DEFAULT)[address] [place] [address] Neut Abs# 4.5 x10 Normal 1.5-9.2 [facility] Comment on above: Performed By: #### 1 [id number], 7068093, 6867576, 96427400 ####[facility] (DEFAULT)[address] [place] [address] Neutrophils/100 WBC (Bld) 58 % Normal 44-88 [facility] Comment on above: Performed By: #### 1 [id number], 1563033, 5987001, 75196580 ####[facility] (DEFAULT)[address] [place] [address] CBC w/ Auto Diffon 4 Erythrocyte distribution width (RBC) [Ratio] 15.2 % High 11.5-15.0 [facility] Comment on above: Performed By: #### 1 [id number], 4094820, 5364472, 99910550 ####[facility] (DEFAULT)[address] [place] [address] Hematocrit (Bld) [Volume fraction] 39.9 % Normal 33.7-40.4 [facility] Comment on above: Performed By: #### 1 [id number], 8848404, 5369419, 78729975 ####[facility] (DEFAULT)[address] [place] [address] Hemoglobin (Bld) [Mass/Vol] 13.3 g/dL Normal 11.3-15.9 [facility] Comment on above: Performed By: #### 1 [id number], 8253367, 6202791, 65484105 ####[facility] (DEFAULT)[address] [place] [address] Man Diff? Auto Invalid Interpretation Code [facility] Comment on above: Performed By: #### 1 [id number], 9872763, 2022277, [id number] ####[facility] (DEFAULT)[address] [place] [address] MCH (RBC) [Entitic mass] 27 pg Normal 24-34 [facility] Comment on above: Performed By: #### 1 [id number], 4164701, 2179719, 86147489 ####[facility] (DEFAULT)[address] [place] [address] MCHC (RBC) [Mass/Vol] 33 g/dL Normal 26-37 [facility] Comment on above: Performed By: #### 1 [id number], 1999028, 3865520, 39598492 ####[facility] (DEFAULT)[address] [place] [address] MCV (RBC) [Entitic vol] 81 fL Normal 81-100 [facility] Comment on above: Performed By: #### 1 [id number], 5725271, 8636115, 85378675 ####[facility] (DEFAULT)[address] [place] [address] Platelet 350 x10 Normal 138-427 [facility] Comment on above: Performed By: #### 1 [id number], 8703326, 9810538, 39183672 ####[facility] (DEFAULT)[address] [place] [address] Platelet mean volume (Bld) [Entitic vol] 8.4 fL Normal 6.3-10.2 [facility] Comment on above: Performed By: #### 1 [id number], 9038784, 1866430, 51626398 ####[facility] (DEFAULT)[address] [place] [address] RBC 4.90 x10 Normal 3.70-5.30 [facility] Comment on above: Performed By: #### 1 [id number], 1833968, 4807213, 73502088 ####[facility] (DEFAULT)[address] [place] [address] WBC 7.7 x10 Normal 3.5-10.5 [facility] Comment on above: Performed By: #### 1 [id number], 1245337, 2437001, 71162009 ####[facility] (DEFAULT)[address] [place] [address] CMP Standardon 03-20-2024 eGFR Non AA >60 Invalid Interpretation Code [facility] Comment on above: Performed By: #### 1 [id number], 1359212, 5394732, 49160943 ####[facility] (DEFAULT)[address] [place] [address] eGFR AA >60 Invalid Interpretation Code [facility] Comment on above: Performed By: #### 1 [id number], 2341727, 1560079, 40563170 ####[facility] (DEFAULT)[address] [place] [address] Albumin [Mass/Vol] 3.9 g/dL Normal 3.5-5.0 [facility] Comment on above: Performed By: #### 1 [id number], 4877901, 4316113, 68573604 ####[facility] (DEFAULT)[address] [place] [address] Albumin/Globulin [Mass ratio] 1.0 {ratio} Low 1.4-2.6 [facility] Comment on above: Performed By: #### 1 [id number], 9931381, 1806323, 32424505 ####[facility] (DEFAULT)[address] [place] [address] Alk Phos 111 IU/L High 32-91 [facility] Comment on above: Performed By: #### 1 [id number], 9150371, 3409808, 88249593 ####[facility] (DEFAULT)[address] [place] [address] ALT [Catalytic activity/Vol] 24.0 U/L Normal 14.0-54.0 [facility] Comment on above: Performed By: #### 1 [id number], 3581654, 6300569, 48607619 ####[facility] (DEFAULT)[address] [place] [address] AST [Catalytic activity/Vol] 22 U/L Normal 15-41 [facility] Comment on above: Performed By: #### 1 [id number], 0495558, 1907717, 47705974 ####[facility] (DEFAULT)[address] [place] [address] Bili Total 0.6 mg/dL Normal 0.3-1.2 [facility] Comment on above: Performed By: #### 1 [id number], 3419796, 5112659, 00078960 ####[facility] (DEFAULT)[address] [place] [address] Creatinine [Mass/Vol] 0.70 mg/dL Normal 0.60-1.30 [facility] Comment on above: Performed By: #### 1 [id number], 1016954, 5032553, 46930419 ####[facility] (DEFAULT)[address] [place] [address] Globulin (S) [Mass/Vol] 3.6 g/dL Normal 1.5-4.3 [facility] Comment on above: Performed By: #### 1 [id number], 1069262, 9943375, 80924950 ####[facility] (DEFAULT)[address] [place] [address] Osmolality 272 mOsm/L Invalid Interpretation Code [facility] Comment on above: Performed By: #### 1 [id number], 5514286, 5797965, 16672859 ####[facility] (DEFAULT)[address] [place] [address] Protein [Mass/Vol] 7.5 g/dL Normal 6.5-8.1 [facility] Comment on above: Performed By: #### 1 [id number], 4250393, 2764415, 57776739 ####[facility] (DEFAULT)[address] [place] [address] Urea nitrogen [Mass/Vol] 14 mg/dL Normal 8-26 [facility] Comment on above: Performed By: #### 1 [id number], [id number], [id number], [id number] ####[facility] (DEFAULT)[address] [place] [address] 94171 Urea nitrogen/Creatinine [Mass ratio] 20.0 mg/mg High 4.6-16.2 [facility] Comment on above: Performed By: #### 1 [id number], [id number], 1215960, [id number] ####[facility] (DEFAULT)[address] [place] [address] 09925 Anion gap [Moles/Vol] 14.2 mmol/L Normal 5.0-19.0 [facility] Comment on above: Performed By: #### 1 [id number], [id number], [id number], [id number] ####[facility] (DEFAULT)[address] [place] [address] 02517 Calcium [Mass/Vol] 8.7 mg/dL Low 8.9-10.3 [facility] Comment on above: Performed By: #### 1 [id number], [id number], [id number], [id number] ####[facility] (DEFAULT)[address] [place] [address] 27606 Chloride [Moles/Vol] 104 mmol/L Normal 101-111 [facility] Comment on above: Performed By: #### 1 [id number], [id number], 6715051, [id number] ####[facility] (DEFAULT)[address] [place] [address] CO2 [Moles/Vol] 22 mmol/L Normal 21-32 [facility] Comment on above: Performed By: #### 1 [id number], [id number], 6611388, [id number] ####[facility] (DEFAULT)[address] [place] [address] 11488 Glucose [Mass/Vol] 96.0 mg/dL Normal 74.0-118.0 [facility] Comment on above: Performed By: #### 1 [id number], 9928278, 6375472, [id number] ####[facility] (DEFAULT)[address] [place] [address] 16914 Potassium [Moles/Vol] 4.2 mmol/L Normal 3.6-5.1 [facility] Comment on above: Performed By: #### 1 [id number], [id number], 6309988, [id number] ####[facility] (DEFAULT)[address] [place] [address] 92139 Sodium [Moles/Vol] 136.0 mmol/L Normal 136.0-144.0 [facility] Comment on above: Performed By: #### 1 [id number], 9648405, 9744146, [id number] ####[facility] (DEFAULT)[address] [place] [address] Abdomen/Pelvis w/o Contra stobeto 03-20-2024 CT Abdomen/Pelvis w/o Contrast EXAMINATION: CT [...] acute intraperitoneal abnormality. Final Dictated by: Christian Hope MD Dictated DT/TM: 03/20/24 9:29 Signed (Electronic Signature): Christian Hope MD 03/20/24 9:36 am Technologist: JEN PATEL [facility] ED Clinical Summaryon 2023 ED Clinical Summary [facility] - Emergency Department [address] [place] [address] ED Clinical Summary PERSON INFORMATION Name: LIA DESAI Age: 23 Years Sex: FEMALE : 2000 MRN: Acct#: Visit Reason: Back pain; LOW BACK PAIN Arrival: 03/20/2024 06:28:58 Discharge: 03/20/2024 09:56:00 LOS: 000 03:28 Check In: 03/20/2024 06:28:58 Checkout:03/20/2024 09:56:00 Address: [address] [place], [place] [id number] PCP: Provider, Unlisted PROVIDER INFORMATION Provider Role Assigned Unassigned Oneil Littlejohn DO ED Provider 03/20/2024 06:30:59 Sudha Virgen TECHNICIAN TERMINAL AND REPEATER Nurse 03/20/2024 07:13:25 Joelle Nava TECHNICIAN TERMINAL AND REPEATER Nurse 03/20/2024 07:40:00 Abner Harvey MD ED [...] Impression and Plan Diagnosis Back pain (PNED [id number], Reason For Visit, Emergency medicine, Medical) Left flank pain (MEV12-UX R10.9, Discharge, Medical) Plan Disposition: Patient care transitioned to: Time: 03/20/2024 08:00:00, Abner Harvey MD, Change of shift.. DISCHARGE INFORMATION: Discharge Disposition: Home Discharge Location: Home PATIENT EDUCATION INFORMATION Instructions: Bacterial Vaginosis, [id number]; Acute Back Pain, Adult Follow-Up: With: Address: When: Follow up with primary care provider Within 3 to 5 days Comments: Reviewed discharge care instruction. Continue with therapy as outlined by Dr. Harvey. Take your medication as (more content not included)... [facility] ED Note - Physicianon 2023 ED [...] reactions were documented.. Medications: (Selected) Prescriptions Prescribed [place] Saline Mist 0.65% nasal spray: 2 spray(s), !-Nasal, QID, for 7 day(s), 1 EA, 0 Refill(s). Past Medical/ Family/ Social History Medical history: Resolved Disease caused by 2019 novel coronavirus ([id number]): Onset on 11/23/2020 at 20 years. Resolved. Comments: 11/23/2020 CDT 16:07 CDT - SYSTEM Problem added by Rule (IC_COVID19_AUTO_PROB CAMI) following 2019 Novel Coronavirus (CoVID-19), MILY L from Nasopharyngeal Swab collected on 22-NOV-2020 16:44:00 EDT tested positive for COVID-19. no history ([id number]): Resolved. Contact dermatitis ([id number]): Resolved. Pharyngitis ([id number]): Resolved. Cough (54127602): Resolved.. Surgical history: Tonsillectomy and adenoidectomy ([id number]).. Family history: No family history items have [...] 71 bpm (more content not included)... Normal [facility] ED Note - Physician Patient: LIA [...] Impression and Plan Diagnosis Back pain (PNED [id number], Reason For Visit, Emergency medicine, Medical) Left flank pain (GTH00-XZ R10.9, Discharge, Medical) Plan Disposition: Patient care transitioned to: Time: 03/20/2024 08:00:00, Abner Harvey MD, Change of shift.. [Electronically Signed on: 03/20/2024 07:33 EST] Oneil Littlejohn DO [Verified on: 03/20/2024 07:33 EST] Oneil Littlejohn DO [facility] ED Note-Nursingon 03-20-2024 ED Note-Nursing PT. C/O back pain that started throughout the night and into this morning. PT. states that she woke up around 0545. Pt. does have urinary frequency. Pt. rates pain 10/15. Pt. is A&OX . PT. has a steady gait. Normal [facility] ED Patient Summaryon 024 ED Patient Summary [facility] - Emergency Department [address] [id number] PATIENT DISCHARGE INSTRUCTIONS Patient Information Name: LIA DESAI Age: 23 Years Date of : 2000 Reason For Visit: Back pain; LOW BACK PAIN Arrival Time: 03/20/2024 06:28:58 Primary Care Physician: Provider, Unlisted Attending Physician: Oneil Littlejohn DO Comment: Visit Diagnosis: Diagnoses This Visit Acute abdominal pain in left flank (R10.9) Acute left-sided back pain (M54.9) Back pain ([id number]) Bacterial vaginosis (N76.0) Left flank pain (R10.9) Other specified bacterial agents as the cause of diseases classified elsewhere (B96.89) The Pharmacy at [facility] is open Saturday through Saturday from [...] drug addiction problems; contact the [facility] 29/10 Crisis Hotline -Text 4HAIY fv [phone]. If you received any narcotics, sedation, or [...] and treatment you received today in the [facility] Emergency Department were for an urgent problem and are not intended as complete care. It is important for you to follow up with a doctor, nurse practitioner, or physician?s commercial lines assistant for ongoing care. If your symptoms [...] so we can reach you if necessary. [facility] Emergency Department has provided you with a complete list of medications post discharge. Please inform your primary education professor/provider of your visit and for further instruction on these medications. Any specific questions regarding your chronic medications and dosages should be discussed with your primary care physician(s) and/or pharmacist. New Medications [facility], [address], [place] [id number], [phone] metroNIDAZOLE topical (metroNIDAZOLE 0.75% vaginal gel with applicator) 1 jamel Vaginal once. Refills: 0. Additional medications on your home medication list not specifically addressed. Please contact the ordering physician if you have questions about these medications. sodium chloride nasal ([place] Saline Mist 0.65% nasal spray) 2 spray(s) [...] Vaginosis (Inser (more content not included)... Normal [facility] Lipaseon 03-20-2024 Lipase Level 27.0 IU/L Normal 22.0-51.0 [facility] Comment on above: Performed By: #### 1 [id number], [id number] ####[facility] (DEFAULT)[address] [place] [address] 87799 Test Urine 1on U Preg Negative [facility] Comment on above: Performed By: #### 5 [id number], [id number], [id number], [id number] ####[facility] (DEFAULT)[address] [place] [address] 98100 U Preg Internal Control Pass [facility] Comment on above: Performed By: #### 5 [id number], [id number], [id number], [id number] ####[facility] (DEFAULT)[address] [place] [address] 19351 Triage Panel 1203-20-2024 Triage Internal Control Pass [facility] Comment on above: Performed By: #### 5 [id number], [id number], [id number], [id number] ####[facility] (DEFAULT)[address] [place] [address] 78455 U Amph Scr Negative [facility] Comment on above: Performed By: #### 5 [id number], [id number], [id number], [id number] ####[facility] (DEFAULT)[address] [place] [address] 00113 U Deirdre Scr Negative Normal [facility] Comment on above: Performed By: #### 5 [id number], [id number], [id number], [id number] ####[facility] (DEFAULT)[address] [place] [address] 41471 U Benzodia Scr Negative Normal [facility] Comment on above: Performed By: #### 5 [id number], [id number], [id number], [id number] ####[facility] (DEFAULT)[address] [place] [address] 15440 U Cannab Scrn Positive Normal [facility] Comment on above: Performed By: #### 5 [id number], [id number], [id number], [id number] ####[facility] (DEFAULT)[address] [place] [address] 51988 U Cocaine Scr Negative [facility] Comment on above: Performed By: #### 5 [id number], [id number], [id number], [id number] ####[facility] (DEFAULT)[address] [place] [address] 25022 U Methadone Scr Negative [facility] Comment on above: Performed By: #### 5 [id number], [id number], [id number], [id number] ####[facility] (DEFAULT)[address] [place] [address] 11752 U Methamp Scrn Negative [facility] Comment on above: Performed By: #### 5 [id number], [id number], [id number], [id number] ####[facility] (DEFAULT)[address] [place] [address] 63137 U Opiate Scr Negative Normal [facility] Comment on above: Performed By: #### 5 [id number], [id number], [id number], [id number] ####[facility] (DEFAULT)[address] [place] [address] 54728 U Oxycod Scr Negative Normal [facility] Comment on above: Performed By: #### 5 [id number], [id number], [id number], [id number] ####[facility] (DEFAULT)[address] [place] [address] U Phencyclidine Scr Negative Normal [facility] Comment on above: Performed By: #### 5 [id number], [id number], [id number], [id number] ####[facility] (DEFAULT)[address] [place] [address] U Tricyclic Antidepress Scr Negative Normal [facility] Comment on above: Result Comment: Resu lts [...] PPX Propoxyphene (Norpropoxyphene): 300 ng/mL THC Cannabinoids (15-yua-5-carboxy- -THC): 50 ng/mL TCA Tricyclic-Antidepressants (Desipramine): 300 ng/mL Performed By: #### 5 [id number], [id number], [id number], [id number] ####[facility] (DEFAULT)[address] [place] [address] 55777 UA Nsmfx2av 03-20-2024 UA Bacteria Rare [facility] Comment on above: Order Comment: Urina lysis Microscopic order added on by Haileo Expert Rules system. Performed By: #### 5 [id number], [id number], [id number], [id number] ####[facility] (DEFAULT)[address] [place] [address] UA Comment. Clue Cells Seen [facility] Comment on above: Order Comment: Urina lysis Microscopic order added on by Discern Expert Rules system. Performed By: #### 5 [id number], [id number], [id number], [id number] ####[facility] (DEFAULT)[address] [place] [address] UA Mucous Trace Normal [facility] Comment on above: Order Comment: Urina lysis Microscopic order added on by Discern Expert Rules system. Performed By: #### 5 [id number], [id number], [id number], [id number] ####[facility] (DEFAULT)[address] [place] [address] UA RBC >50 [facility] Comment on above: Order Comment: Urina lysis Microscopic order added on by Haileo Expert Rules system. Performed By: #### 5 [id number], [id number], [id number], [id number] ####[facility] (DEFAULT)[address] [place] [address] UA Squam Epi Moderate [facility] Comment on above: Order Comment: Urina lysis Microscopic order added on by Haileo Expert Rules system. Performed By: #### 5 [id number], [id number], [id number], [id number] ####[facility] (DEFAULT)[address] [place] [address] UA WBC 5-10 [facility] Comment on above: Order Comment: Urina lysis Microscopic order added on by Haileo Expert Rules system. Performed By: #### 5 [id number], [id number], [id number], [id number] ####[facility] (DEFAULT)[address] [place] [address] UA w Culture if Ind Standard on 03-20-2024 Color (U) Yellow [facility] Comment on above: Performed By: #### 5 [id number], [id number], [id number], [id number] ####[facility] (DEFAULT)[address] [place] [address] Culture? Indicated Invalid Interpretation Code [facility] Comment on above: Result Comment: Resu lt created by rule GL_MAGR_ADD_UA_CULT Result created by rule GL_MAGR_ADD_UA_CULT Result created by rule GL_MAGR_ADD_UA_CULT1 Result created by rule GL_MAGR_ADD_UA_CULT Performed By: #### 5 [id number], [id number], [id number], [id number] ####[facility] (DEFAULT)[address] [place] [address] Glucose (U) [Mass/Vol] Negative Normal [facility] Comment on above: Performed By: #### 5 [id number], [id number], [id number], [id number] ####[facility] (DEFAULT)[address] [place] [address] Ketones Ql (U) Negative Normal [facility] Comment on above: Performed By: #### 5 9116611, [id number], [id number], [id number] ####[facility] (DEFAULT)[address] [place] [address] Micro? Indicated Invalid Interpretation Code [facility] Comment on above: Result Comment: Resu lt created by rule GL_MAGR_ADD_UA_MICRO Performed By: #### 5 [id number], [id number], [id number], [id number] ####[facility] (DEFAULT)[address] [place] [address] UA Bilirubin SMALL Abnormal [facility] Comment on above: Performed By: #### 5 [id number], [id number], [id number], [id number] ####[facility] (DEFAULT)[address] [place] [address] UA Blood LARGE Abnormal NEGATIVE [facility] Comment on above: Performed By: #### 5 [id number], [id number], [id number], [id number] ####[facility] (DEFAULT)[address] [place] [address] 05566 UA Clarity SL CLOUDY Abnormal CLEAR [facility] Comment on above: Performed By: #### 5 [id number], [id number], [id number], [id number] ####[facility] (DEFAULT)[address] [place] [address] 98[address] UA Leuk Est Negative Normal NEGATIVE [facility] Comment on above: Performed By: #### 5 [id number], [id number], [id number], [id number] ####[facility] (DEFAULT)[address] [place] [address] 80451 UA Nitrite Negative Normal NEGATIVE [facility] Comment on above: Performed By: #### 5 [id number], [id number], [id number], [id number] ####[facility] (DEFAULT)[address] [place] [address] 83479 UA pH 6.0 Normal 5-8 [facility] Comment on above: Performed By: #### 5 [id number], [id number], [id number], [id number] ####[facility] (DEFAULT)[address] [place] [address] 66474 UA Protein 30 Abnormal NEGATIVE [facility] Comment on above: Performed By: #### 5 [id number], [id number], [id number], [id number] ####[facility] (DEFAULT)[address] [place] [address] 15794 UA Spec Grav >=1.030 Normal 1.001-1.035 [facility] Comment on above: Performed By: #### 5 [id number], [id number], [id number], [id number] ####[facility] (DEFAULT)[address] [place] [address] 94647 UA Urobilinogen 0.2 mg/dL Normal 0.2-1.0 [facility] Comment on above: Performed By: #### 5 [id number], [id number], [id number], [id number] ####[facility] (DEFAULT)[address] [place] [address] 68372 Urine Source Clean Catch Normal [facility] Comment on above: Performed By: #### 5 [id number], [id number], [id number], [id number] ####[facility] (DEFAULT)[address] [place] [address] 76196 Breakpoint UA Normal [facility] Comment on above: Performed By: #### 5 [id number], [id number], [id number], [id number] ####[facility] ([facility])[address] [place] [address] Coding Summaryon 02-11-2024 Coding Summary HTMLBase 64 XbxnecqgWNk2gSp+PGhlY WQ+KI7TDEDkL71bpDNiiK 8gA0MQLSuZNdneTIBCYGe IBjUomfSeSI0mdSFaNBTy IC8+FT8tZHVdJwcvpAEnp 4M9kZV2G51uwg6nVIggsD R3HRAkJkGenzmpv2wgrDs 6IDcuNmluOyBt FLLhlC55GVY5zP50Nu08f PNdwLPds5rigXm2WaCoUA LhTFG9fBepXRpdk9HmQQV qO81zlQDld0L9 LMRlnVwetFJzDaVqsLR9r V6kFKlrvxvbq5widyjbAf n5ft06tLApl8V1uSP1K8D hybU3LDJuoEMa XoxqsGEOrC1goejpl7mib qtiGxLmVVKpXOp3NYb0YW CzgHbpSaMgFM71UPG7YTG knxWcO4GaTZHn pVxnBrP5n3H2Uv7XT4YSB aiwW5ZPSYWIBLelmVS+PC 99jc83D6RyRzriYlk1MGW hNUP9lRI5iF6b YEXpAUcyc0W7xIQ4I8Rij zTqog8ic5shJTFlZBhpL3 6tcKInz6B5MBNfpYO4WMK idLshImSmdQ89 Oyc+YEGtxYvvj4FpGhvwd 3qjp1kswUu1BuilJUPpjg PekVszMJO2c5TuTf5tIWZ hcCX2sUP8vJ3w BvSzVgW9KRxlR863XdYuw WAyAnhmH96tS0NwiJJ+PH HoOjp5GXBwaKfdZW0oF4F hZGRpbmctbGVm yXrtDO3fNGVstrjfJUKtp O4lMWJuJ1y0JjWnXkH2XY aoS0RhYINqkccvAb60qN3 fNtVaSlN6RTci R2JgylT9SQIuhQAdBYytX EG0V22bu2N4FATeWVFeAC S8wVM0aP2oyUwrdnogyXC mdDsgdmVydGlj IWspUHnfB109VJRzcNvpA kNvZGluZyBEYXRlOiAgMT EvMDUvMjAyNDwvdGQ+PHR qDAI5hOcqKGWi kJSyOPvbGt6zcEtplUpdY N0sVEHvmnbkELNcsC1fJT GafLWipXtcRJ9aGECpntq fq558DwTfPRB5 TLSyuLKgS3HqaA7hFwWiN NIiBDSjY9UghFYvOLkiK2 59JQvqAzC4LITcabHfF6U sLWFsaWduOiB0 m0O5Zy4Ko8VcjwyrH4Nol MChYrMvWcupQMa1H0CdRo wvdHI+SR70TZEzJG53XWp 6OOQ8jSvyFGuj STHhH1QfcV5uMaIiMIKdA GRkOyc+PHRhYmxlIHdpZH RoPScxMDAlJyBzdHlsZT0 rUk7bTKUzTZCx uDzzdERgWaCss1geBZFpU KhrNL7zvVuaC2NhsOQ5ZF Ghd3x5Uf66O31aE0CshTC +KSKwyUZ4dCZ1 jP9cPjFcNtX7GUaeM996T qXajDGkXbwak1cil7qaxH g2YnK5QVElmzAyoEecSAD 6y3ViOm30K18b IHdpZHRoPSIxNSUiIHZhb Xteui5arO5oYe5+PGNvbC J4mRH7xX0zNxEjDzC8LGl zO866HtUlbUVr Kpvds0hrq3pgpPy2OeBcK XLgktRfiRyxSYS9p9DuZm 28G4CfvAaxe8JdHud8dk8 7iUUbe4G5oDO9 J1JwDXWabljuwHDxvZozU L1kVHFeweqyHWJchE2cUK IgD3r9ShWbMvG9OCbrI7Z fbjA1IFMlsIYv KEOsgZUQnG5lqjmtg4wfj krxPtOcZGDyBFq3XPu4DD SpnEjjAeCbIKT8LgX7QTJ 2aRWraW9bnBfn rmwyaN2kJgt+NJZ8rWDwk STBFB6nOhnqsVZ+PHRkIH S9vNppLHteOLDgkV0dQZB bR7b7DqMkUiA9 WRmhP4KwidT3AIPjlIIjP OFykLKXbX3wvqken1mghk omZzKfEXWzYCf3VFr2DID saWduOiBsZWZ0 JbH9ZBN3pWFheG9omZdbs wckwM4iJnj+QmlydGggRG I6OGu3Y2FoJmi6TDZidZw dFA5yvIHjDQyu Mo6xlBdshOgkPW5yNDVab ywzz304QfZkx9jcNNGxmR VjYDuvWLL2T40vu5O3NVH cHYVxTLR4qIK6 cQ1dsTeecbbziNQaxPzbv dQzvCvwNZrmYTmyC824RD HmcOtpJgKnAZc7K8MdYak 2CHKwiEyuYE7b yTVeVExiDc9ugMmeeXmfP M8bGNKqdlvzg694YeQla9 xtZHUnzCTlKAwtMJM1K84 an1D6LICgBFDk OSQ5kXR5oX2tbLdjmbnjq GVmdDsgdmVydGljYWwtYW zlV423DHIxlIweCiBikCo 0I9DiYfe7HHKa xMjtAW7szJAlPYlxTh1xj BtdnYprCC2kSRJikimbn0 63BkKzt5arFHGvsQBuDNf uJBF1P36ii4U4 HSBeJEOdXDG6jSU7xQ4ma GlnbjogbGVmdDsgdmVydG dqHCjzGTjmA187SINnrPh nPlBhdGllbnQg GPakNBk5Q6PiAmjpxEU+P O13NUDfSG81bGWalZJux7 nztEa0VoIfNFMtEMA1fGc vIBpjx2XxPDIa O99wvPWxs0B4QHFsbSyjr XNxQwNccGY6zP8pXAxurl tnf3lkqonzViakk6muqe7 7dJ98Y57tUXds ZHRoPSIzMCUiIHZhbGlnb e7cgE7uBp7+ZCIosVI1iW H4oD3yGXZvFvI0OVwiM19 9InRvcCIvPjxj q9ehn8xlvZw9SiL4HRUvw dAtyKmlYLH4b7KpIx07Y4 9sIHdpZHRoPSIyMCUiIHZ wuCudwj5lsE0v Ii8+KTJhwMT7wGE4mI1vA hBsIwX8DLydQ165GyIxhX YwFrqgX58qZ7CwmID+PHR hDqs5NGQdyGet ZK1sfMCuFAcmOv4nXWA8C zFuCrXlZFdkW4BtEBIyfr wfdmudjWC0VXLvNVNsyJ6 8Di1cmKcbGSUz iUDCeE3bkwtro5txavwsO dFeIMOsYWj7MFi8WVXeaW pnQmGfLCO2HbT9UYP7cRJ cgC9bfGijuihj lS2cJ4JaJEEqcizcVe89w A8xNjDnRoB3KGdmEzz+R0 pECaMLRLdnG8eNTQMUDTd VZV0SSKnitDJ+ OZQzQBM2aFktHPulOEJer M1iDUFlG3d8JvMyTwX0NW alL6OuDYQfaeejSj25sC6 mLwCaFrY4YJik J2BmelB8JHJouZRzDQnsW YW3I48zu5Y6UZCqBHXdUS U2bJN1gR5znWmrfdrddNI mdDsgdmVydGlj SJtbNFvyZ359DHYhdJqgW uZ1DgXcRcWgNZE3J7WdEj f3UXDnjTppQR8mbLCwYNu hJm4brSursXzo FA2gGYReotifGVBblN2nG FQtlCUiyVdkLS3eOSHvnl ewr469LfUcOBS8TTDgnBH xM9FipW0zItNg ENLsNCNqI4QixXHzPQujL 884MFivPhI5EDHyjtCiL3 CdIWSgtCsdTxF9c6T5Ur0 yMiBZZWFyczwv dGQ+DOStHXL6xQxwNDpmB TRjoO3vPCLuA2t0TxMhWo A7TGkwO1OfIRHvozepPe2 0zV8ePaQaQoA3 DDnyB6HvjyY1STFkqISrG BfqQHN8M57hx2Z6KKWsOS MyIBL0bSC9gP6plIngtvb gbGVmdDsgdmVy rAdzLNoiMNxnO338RDCwz DsnPkZFTUFMRTwvdGQ+PH ZvSWD3hJddCAezFMJmyA3 xZBVzN6k6ZgZo PuL0PDojD9XeRUZjgzdcO q12hX1sBbMgJjW4SLnpX1 YnuoP4AENqiKPyCErrKOC 4D31zp4T3ATLi RAKmYWK9bMT5tW9xiRozj jogbGVmdDsgdmVydGljYW ulSRspP863YNQkxFbxQv1 RTS68UR50X0Yv PjwvdGFibGU+PHRhYmxlI HdpZHRoPScxMDAlJyBzdH ulTH9xMj0iPEMpNLDywJr twDJsEpRfy8cs GKPmKPquZP5gwQlhA1Apx UB2QGIgl4j2Ez54F52oP2 JvdXA+TDAlnJL5kKS3rX3 zDsZeGvO6AZlk K402XkOzrLMuZaouq1yoh 8zeuCv7LrDsXZXzzyZyqG kcKZR9z3DtJq74X18qWDh pZHRoPSIyMCUi SRWasErson8voZ6cYv4+P FQiaHN8jTA2aM0wAhVpCk J1ZTcpQ604LcYvuQKfQfr vA87vT3YhpOO+ GSKbQfn0KLRbvAwkMU2oe RKhEAvfBu4nGZC9LpBwNn KeLFplK7QfOAXurzqwsvg piQV6ZDKyHGCk dE84Sq5huGfjXa6fZNZtT SV1CQXfvPMvB4ZrhF6lZr SyKHTmSQRcC6FwnXYpBOr jW394DPimMtH4 ZXHpqzJpB8KtQHArvNfjR kX4m2H5Jp0YjJbjlVHqKG 3jFbWuXTv5V7UmDqs5UIX xbHusAO2dtWJh BLtsEy1osDpxhTbaVO4oL ATkniyxe479BeEki3spYZ IujUGvQZcqGXU9S14bz3F 6IESfGTAbQKX8 sZN3jK0vvFfwbwucyQXmx DsgdmVydGljYWwtYWxpZ2 26DQPbzRviQrBZWbt1I7S dXbc5DYEuuTbq BB4tvQWbLTvrSs1tgYyez HsjTD2cGYGswzclq658Ux Iwn0udNEApoOHtTCnpQWT 0U14tq6E4QLAv GPMlZYR7iCK0nY3zkPxvj jogbGVmdDsgdmVydGljYW bnTTzgO743AADtnBneUz1 FFtt1M9IjMmi2 FGLhsZygBO3juQCkTDpkD o1bbIdtpLkcVZ5pHHXwjy pil609NaZyu4egOKRcnSL dOVzjBSX5O12f y1G9HAWbKRWaZCL9eZA1l R4mzZljdlclvNUbnAzhnu WrvUlcNTudJXykP293KXM vcDsnPlBheWVy OjwvdGQ+MI45dl12X0SqC dmcLto6KPUnVNK1qLP2nZ 2qVHBhBTowp4C3bPD8I0M bgkDgox8ej3hi YXB (more content not included)... Normal [facility] C Throaton 01-30-2024 C Throat Ordered by Discern. Normal throat jonny isolated No pathogens isolated Normal [facility] Comment on above: Performed By: #### 4 [id number], [id number] #### [facility] (DEFAULT) [address] [place] [address] ED Clinical Summaryon 2023 ED Clinical Summary [facility] ? Urgent Care [address] [place] [address] Clinical Summary PERSON INFORMATION Name: LIA DESAI Age: 23 Years Sex: FEMALE : 2000 MRN: Acct#: Visit Reason: Body aches; UC - Sore Throat; Earache; Cough; Throat pain - Adult; CONGESTION, BRYAN EAR PAIN, SORE THROAT, BODY ACHES Arrival: 01/28/2024 11:07:11 Discharge: 01/28/2024 12:39:00 LOS: 000 01:32 Check In: 01/28/2024 11:07:11 Checkout: 01/28/2024 12:39:00 Address: [address] [place] [address] PCP: ROBERT MARRERO PROVIDER INFORMATION Provider Role Assigned Unassigned Errol Ortega ED PA 01/28/2024 11:10:09 Corrina Grant TECHNICIAN TERMINAL AND REPEATER Nurse 01/28/2024 11:19:17 VITALS INFORMATION Vital Sign [...] With: Address: When: ROBERT MARRERO [address] [place] [address] Business (1) Within 5 to 7 days [...] verbalizes understanding of instructions given Comment: Normal [facility] ED Patient Summaryon 024 ED Patient Summary [facility] ? Urgent Care [address] [place] [address] [id number] PATIENT DISCHARGE INSTRUCTIONS Patient Information Name: LIA DESAI Age: 23 Years Date of : 2000 Reason For Visit: Body aches; UC - Sore Throat; Earache; Cough; Throat pain - Adult; CONGESTION, BRYAN EAR PAIN, SORE THROAT, BODY ACHES Arrival Time: 01/28/2024 11:07:11 Primary Care Physician: ROBERT MARRERO Attending Physician: Errol Ortega Comment: Patient Education With: Address: When: ROBERT MARRERO [address] [place] [id number] [facility] (1) Within 5 to 7 days Comments: [...] to help relieve symptoms, such as: ? Shbw-nev-czbmnpw cold medicines. ? Cough suppressants. Coughing is [...] other clear broths. General instructions ? Take cwmm-cwd-mxduboq and prescription medicines only as told by [...] and water are not available, use hand combat systems engineer. ? Avoid touching your mouth, face, eyes, or nose. ? Cough or sneeze into a tissue or your sleeve or elbow instead of into your hand or into the air. Contact a health care provider if: ? Y (more content not included)... Normal [facility] POCT Rapid CoV-2 (COVID-19) Antigen/ Flu A&Bon 01-28-2024 Influenza A POCT Negative Normal Negative [facility] Comment on above: Performed By: #### 9 [id number] #### [facility] (DEFAULT) [address] [place] [address] Influenza B POCT Negative Normal Negative [facility] Comment on above: Performed By: #### 9 [id number] #### [facility] (DEFAULT) [address] [place] [address] SARS-CoV-2 (COVID-19) RNA MILY+probe Ql (Unsp spec) Not detected Normal [facility] Comment on above: Performed By: #### 9 [id number] #### [facility] (DEFAULT) [address] [place] [address] Strep Aon 01-28-2024 Strep procedure control Pass Normal [facility] Comment on above: Performed By: #### 4 [id number] #### [facility] (DEFAULT) [address] [place] [address] Streptococcus A Negative Normal Negative [facility] Comment on above: Performed By: #### 4 [id number], [id number] #### [facility] (DEFAULT) [address] [place] [address] Urgent Care Note- Provideron 01-28-2024 Urgent Care [...] She is currently breast-feeding an 8-week old . Unsure what to take at home. Review [...] Resolved Disease caused by 2019 novel coronavirus ([id number]): Onset on 11/23/2020 at 20 years. Resolved. Comments: 11/23/2020 CDT 16:07 CDT - SYSTEM Problem added by Rule (IC_COVID19_AUTO_PROB CAMI) following 2019 Novel Coronavirus (CoVID-19), MILY L from Nasopharyngeal Swab collected on 22-NOV-2020 16:44:00 EDT tested positive for COVID-19. no history ([id number]): Resolved. Contact dermatitis (18652332): Resolved. Pharyngitis ([id number]): Resolved. Cough ([id number]): Resolved.. Surgical history: Tonsillectomy and adenoidectomy ([id number]).. Family history: No family history items have [...] uvula s (more content not included)... Normal [facility] [address] Urgent Care Record [facility] ? Urgent Care [address] [place] [address] PATIENT DISCHARGE INSTRUCTIONS Patient Information Name: LIA DESAI Age: 23 Years Date of : 2000 Reason For Visit: Body aches; UC - Sore Throat; Earache; Cough; Throat pain - Adult; CONGESTION, BRYAN EAR PAIN, SORE THROAT, BODY ACHES Arrival Time: 01/28/2024 11:07:11 Primary Care Physician: ROBERT MARRERO Attending Physician: Errol Ortega Comment: Visit Diagnosis: Diagnoses This Visit Acute URI (J06.9) Body aches ([id number]) Cough ([id number]) Earache ([id number]) Throat pain - Adult ([id number]) UC - Sore Throat ([id number]) If you received any narcotics, sedation, or any other medication that causes drowsiness for the next 24 hours, unless otherwise directed: ? Do not drive a car. ? Do not operate machinery such as power tools, [employer] mowers, drills, sewing machines, or stoves ? Avoid alcoholic beverages and drugs for allergies, nerves, or sleep ? Do not make important personal or business decisions or sign any legal documents With: Address: When: ROBERT MARRERO [address] [place] [address] Business (1) Within 5 to 7 days Comments: Viral upper respiratory illness. mother. Contagious 72 hours from onset Strep, Covid, Flu negative. Vitals good today. Begin Mucinex 600mg 1 po BID x 7 days. Begin Saline nasal spray Consider humidifier or Vics salve. Return if worse in any way. Medication Information: The exam and treatment you received today in the [facility] were for an urgent problem and are not intended as complete care. It is important for you to follow up with a doctor, nurse practitioner, or physician?s commercial lines assistant for ongoing care. If your symptoms [...] so we can reach you if necessary. [facility] has provided you with a complete list of medications post discharge. Please inform your primary education professor/provider of your visit and for further instruction on these medications. Any specific questions regarding your chronic medications and dosages should be discussed with your primary care physician(s) and/or pharmacist. New Medications [id number], [place] [id number], [phone] guaiFENesin (Mucinex 600 mg oral tablet, extended release) 1 tab(s) Oral (given by mouth) Every 12 hours scheduled time as needed congestion for 10 Days. Refills: 0. sodium chloride nasal ([place] Saline Mist 0.65% nasal spray) 2 spray(s) [...] or very old. (more content not included)... [facility] ALL CBC WITH AUTO DIFFon BASOPHILS ABSOLUTE AUTO 0.1 [facility] Basophils/100 WBC (Bld) 0.5 % 0.2 - 2.0 % [facility] Eosinophils/100 WBC (Bld) 0.8 % Low 0.9 - 7.0 % [facility] Erythrocyte distribution width (RBC) [Ratio] 13.3 % 11.0 - 15.0 % [facility] Hematocrit (Bld) [Volume fraction] 31.5 % Low 36.0 - 48.0 % [facility] Hemoglobin (Bld) [Mass/Vol] 10.0 g/dL Low 12.0 - 16.0 g/dL [facility] IMMATURE GRANULOCYTES ABS AUTO 0.19 High [facility] Immature granulocytes/100 WBC (Bld) 1.3 % High 0.0 - 0.5 % [facility] Interpretation and review of laboratory results Abnormal [facility] LYMPHOCYTES ABSOLUTE AUTO 4.0 High [facility] Lymphocytes/100 WBC (Bld) 27.7 % 20.5 - 60.0 % [facility] MCH (RBC) [Entitic mass] 26.5 pg Low 26.7 - 34.0 pg [facility] MCHC (RBC) [Mass/Vol] 31.7 g/dL 29.9 - 35.2 g/dL [facility] MCV (RBC) [Entitic vol] 83.6 fL 81.0 - 99.0 fL [facility] MONOCYTES ABSOLUTE AUTO 1.4 High [facility] Monocytes/100 WBC (Bld) 9.6 % 1.7 - 12.0 % [facility] NEUTROPHILS ABSOLUTE AUTO 8.6 High [facility] Neutrophils/100 WBC (Bld) 60.1 % 43.0 - 75.0 % [facility] Platelet mean volume (Bld) [Entitic vol] 10.2 fL 9.5 - 13.5 fL [facility] TBH EO # 0.1 [facility] PLT 323 [facility] RBC 3.77 Low [facility] WBC 14.3 High [facility] HMHP CBC WITH PLATELET NO DI FFERENTIALon 12-04-2023 Erythrocyte distribution width (RBC) [Ratio] 12.9 % 11.0 - 15.0 % [facility] Hematocrit (Bld) [Volume fraction] 36.4 % 36.0 - 48.0 % [facility] Hemoglobin (Bld) [Mass/Vol] 11.8 g/dL Low 12.0 - 16.0 g/dL [facility] Interpretation and review of laboratory results Abnormal [facility] MCH (RBC) [Entitic mass] 26.9 pg 26.7 - 34.0 pg [facility] MCHC (RBC) [Mass/Vol] 32.4 g/dL 29.9 - 35.2 g/dL [facility] MCV (RBC) [Entitic vol] 82.9 fL 81.0 - 99.0 fL [facility] Platelet mean volume (Bld) [Entitic vol] 10.1 fL 9.5 - 13.5 fL [facility] PLT 423 [facility] RBC 4.39 [facility] WBC 14.6 High [facility] Cytology Cervical or vaginal smear or scraping studyon 07-01-2023 [facility] ALL CBC WITH AUTO DIFFon BASOPHILS ABSOLUTE AUTO 0.0 [facility] Basophils/100 WBC (Bld) 0.3 % 0.2 - 2.0 % [facility] Eosinophils/100 WBC (Bld) 0.5 % Low 0.9 - 7.0 % [facility] Erythrocyte distribution width (RBC) [Ratio] 12.2 % 11.0 - 15.0 % [facility] Hematocrit (Bld) [Volume fraction] 38.6 % 36.0 - 48.0 % [facility] Hemoglobin (Bld) [Mass/Vol] 12.3 g/dL 12.0 - 16.0 g/dL [facility] IMMATURE GRANULOCYTES ABS AUTO 0.02 [facility] Immature granulocytes/100 WBC (Bld) 0.2 % 0.0 - 0.5 % [facility] Interpretation and review of laboratory results Abnormal [facility] LYMPHOCYTES ABSOLUTE AUTO 3.1 [facility] Lymphocytes/100 WBC (Bld) 32.8 % 20.5 - 60.0 % [facility] MCH (RBC) [Entitic mass] 28.6 pg 26.7 - 34.0 pg [facility] MCHC (RBC) [Mass/Vol] 31.9 g/dL 29.9 - 35.2 g/dL [facility] MCV (RBC) [Entitic vol] 89.8 fL 81.0 - 99.0 fL [facility] MONOCYTES ABSOLUTE AUTO 0.7 [facility] Monocytes/100 WBC (Bld) 7.7 % 1.7 - 12.0 % [facility] NEUTROPHILS ABSOLUTE AUTO 5.4 [facility] Neutrophils/100 WBC (Bld) 58.5 % 43.0 - 75.0 % [facility] Platelet mean volume (Bld) [Entitic vol] 10.7 fL 9.5 - 13.5 fL [facility] TBH EO # 0.1 [facility] PLT 211 [facility] RBC 4.30 [facility] WBC 9.3 [facility] US PREG TVon 08-08-2022 US PREG TV [...] weeks 4 days Electronically authenticated by: CHRISTIAN HOPE Date: 2022-08-08 16:56 Normal [facility] US PELVIS AND TRANSVAGon US [...] ANGELA SCOTT Date: 2022-06-04 06:[address] [facility] US PREG TVon 05-16-2022 US PREG [...] consistent with demise Electronically authenticated by: CHRISTIAN HOPE Date: 2022-05-16 18:[address] [facility] HEP B SURFACE ANTIGEN SCREEN on 04-20-2022 HBsAg Screen Negative Normal Negative [facility] Comment on above: Performed By: #### H BSANS #### [facility] [address] [address] [address] Jeronimo Melgar HEPATITIS C VIRUS AB W/ REFL EX QUANTon 04-20-2022 HCV AB <0.1 Normal 0.0-0.9 [facility] Comment on above: Performed By: #### H CVPCRR #### [facility] [address] [address] [address] Jeronimo Melgar Interpretation: Comment Normal [facility] Comment on above: Result Comment: Nega tive Not infected with HCV, unless recent infection is suspected or other evidence exists to indicate HCV infection. Performed By: #### H CVPCRR #### [facility] [address] [address] [address] Jeronimo Melgar HIV 1 AND 2 WITH REFLEXon HIV Screen 4th Generation wRfx Non-Reactive Normal Non Reactive [facility] Comment on above: Result Comment: HIV Negative HIV-1/HIV-2 antibodies and HIV-1 p24 antigen were NOT detected. There is no laboratory evidence of HIV infection. Performed By: #### H IV12 #### [facility] [address] [place] [address] Dr. Jeronimo Melgar RPR QUANTon 04-20-2022 Rapid Plasma Reagin, Quant Non-Reactive Normal NonRea<1:[address] [facility] Comment on above: Result Comment: Plea se Note: This test does not meet current guidelines for screening and diagnosis of syphilis. This test is intended for following treatment response in patients being treated for syphilis infection. To screen for syphilis infection, a reflex cascade that includes both RPR and a treponema-specific assay should be utilized, such as Treponema pallidum (Syphilis) Screening Boyce (391018) or Rapid Plasma Reagin (RPR) Test With Reflex to Quantitative RPR and Confirmatory Treponema pallidum Antibodies (751732). Performed By: #### R PRQ #### [facility] [address] [place] [address] Dr. Jeronimo Melgar RUBELLA AB IGGon 04-20-2022 Rubella Antibodies, IgG 1.85 index Normal Immune >0.99 [facility] Comment on above: Result Comment: Non- immune <0.90 Equivocal 0.90 - 0.99 Immune >0.99 Performed By: #### B OX #### [facility] [address] [place] [address] Dr. Jeronimo Melgar BOX TEST SENT OUTon 04-19-19 23 SENT TO REF LAB 04/19/2022 Normal [facility] Comment on above: Performed By: #### B OX #### [facility] [address] [place] [address] Dr. Jeronimo Melgar CBC AUTO DIFFon 04-19-2022 BASO # 0.1 103/ul Normal 0.0-0.1 [facility] Comment on above: Performed By: #### B OX #### [facility] [address] [place] [address] Dr. Jeronimo Melgar Basophils/100 WBC (Bld) 0.5 % Normal 0.2-2.0 [facility] Comment on above: Performed By: #### B OX #### [facility] [address] [place] [address] Dr. Jeronimo Melgar EO # 0.1 103/ul Normal 0.0-0.[address] [facility] Comment on above: Performed By: #### B OX #### [facility] [address] [place] [address] Dr. Jeronimo Melgar Eosinophils/100 WBC (Bld) 0.7 % Critically low 0.9-7.0 [facility] Comment on above: Performed By: #### B OX #### [facility] [address] [place] [address] Dr. Jeronimo Melgar Erythrocyte distribution width (RBC) [Ratio] 12.8 % Normal 11.0-15.0 [facility] Comment on above: Performed By: #### B OX #### [facility] [address] [place] [address] Dr. Jeronimo Melgar Hematocrit (Bld) [Volume fraction] 43.7 % Normal 36.0-48.0 [facility] Comment on above: Performed By: #### B OX #### [facility] [address] [place] [address] Dr. Jeronimo Melgar Hemoglobin (Bld) [Mass/Vol] 13.1 g/dL Normal 12.0-16.0 [facility] Comment on above: Performed By: #### B OX #### [facility] [address] [place] [address] Dr. Jeronimo Melgar IG # 0.02 10e3/ul Normal 0.00-0.03 [facility] Comment on above: Performed By: #### B OX #### [facility] [address] [place] [address] Dr. Jeronimo Melgar IG % 0.2 % Normal 0.0-0.5 [facility] Comment on above: Performed By: #### B OX #### [facility] [address] [place] [address] Dr. Jeronimo Melgar LYMPH # 2.6 103/ul Normal 1.2-3.8 [facility] Comment on above: Performed By: #### B OX #### [facility] [address] [place] [address] Dr. Jeronimo Melgar Lymphocytes/100 WBC (Bld) 27.3 % Normal 20.5-60.0 [facility] Comment on above: Performed By: #### B OX #### [facility] [address] [place] [address] Dr. Jeronimo Melgar MANUAL DIFF REQ NO Normal [facility] Comment on above: Performed By: #### B OX #### [facility] [address] [place] [address] Dr. Jeronimo Melgar MCH (RBC) [Entitic mass] 27.7 pg Normal 26.7-34.0 [facility] Comment on above: Performed By: #### B OX #### [facility] [address] [place] [address] Dr. Jeronimo Melgar MCHC (RBC) [Mass/Vol] 30.0 g/dL Normal 29.9-35.2 [facility] Comment on above: Performed By: #### B OX #### [facility] [address] [place] [address] Dr. Jeronimo Melagr MCV (RBC) [Entitic vol] 92.4 fL Normal 81.0-99.0 [facility] Comment on above: Performed By: #### B OX #### [facility] [address] [place] [address] Dr. Jeronimo Melgar MONO # 0.8 103/ul Normal 0.3-0.8 [facility] Comment on above: Performed By: #### B OX #### [facility] [address] [place] [address] Dr. Jeronimo Melgar Monocytes/100 WBC (Bld) 7.8 % Normal 1.7-12.0 [facility] Comment on above: Performed By: #### B OX #### [facility] [address] [place] [address] Dr. Jeronimo Melgar NEUT # 6.1 103/ul Normal 1.4-6.5 [facility] Comment on above: Performed By: #### B OX #### [facility] [address] [place] [address] Dr. Jeronimo Melgar Neutrophils/100 WBC (Bld) 63.5 % Normal 43.0-75.0 [facility] Comment on above: Performed By: #### B OX #### [facility] [address] [place] [address] Dr. Jeronimo Melgar Platelet mean volume (Bld) [Entitic vol] 10.7 fL Normal 9.5-13.5 [facility] Comment on above: Performed By: #### B OX #### [facility] [address] [place] [address] Dr. Jeronimo Melgar PLT 399 103/ul Normal 150-[address] [facility] Comment on above: Performed By: #### B OX #### [facility] [address] [place] [address] Dr. Jeronimo Melgar RBC 4.73 106/ul Normal 4.20-5.40 [facility] Comment on above: Performed By: #### B OX #### [facility] [address] [place] [address] Dr. Jeronimo Melgar WBC 9.6 103/ul Normal 4.0-11.[address] [facility] Comment on above: Performed By: #### B OX #### [facility] [address] [place] [address] Dr. Jeronimo Melgar CULTURE URINEon 04-19-2022 CULTURE URINE Culture Observations : LIGHT GROWTH OF MIXED GENITAL JONNY. NO POTENTIAL PATHOGENS SEEN. Normal [facility] Comment on above: Performed By: #### B OX #### [facility] [address] [place] [address] Dr. Jeronimo Melgar DRUG SCREEN RAPID (URINE)on 04-19-2022 AMP Negative Normal NEGATIVE [facility] Comment on above: Performed By: #### H IV12 #### [facility] [address] [place] [address] Dr. Jeronimo Melgar BAR Negative Normal NEGATIVE [facility] Comment on above: Performed By: #### H IV12 #### [facility] [address] [place] [address] Dr. Jeronimo Melgar BUP Negative Normal NEGATIVE [facility] Comment on above: Performed By: #### H IV12 #### [facility] [address] [place] [address] Dr. Jeronimo Melgar BZO Negative Normal NEGATIVE [facility] Comment on above: Performed By: #### H IV12 #### [facility] [address] [place] [address] Dr. Jeronimo Melgar KRISTINA Negative Normal NEGATIVE [facility] Comment on above: Performed By: #### H IV12 #### [facility] [address] [place] [address] Dr. Jeronimo Melgar CUT-OFFS SEE BELOW Normal [facility] Comment on above: Result [...] ng/mL Performed By: #### H IV12 #### [facility] [address] [place] [address] Dr. Jeronimo Melgar DRUG CUT HEADER DRUG CLASS TEST SYSTEM CUT-OFF CONCENTRATIONS ARE FOLLOWS: Normal [facility] Comment on above: Performed By: #### H IV12 #### [facility] [address] [place] [address] Dr. Jeronimo Melgar mAMP Negative Normal NEGATIVE [facility] Comment on above: Performed By: #### H IV12 #### [facility] [address] [place] [address] Dr. Jeronimo Melgar MTD Negative Normal NEGATIVE [facility] Comment on above: Performed By: #### H IV12 #### [facility] [address] [address] [address] Jeronimo Melgar OPI Negative Normal NEGATIVE [facility] Comment on above: Performed By: #### H IV12 #### [facility] [address] [address] [address] Jeronimo Melgar OXY Negative Normal NEGATIVE [facility] Comment on above: Performed By: #### H IV12 #### [facility] [address] [address] [address] Jeronimo Melgar PCP Negative Normal NEGATIVE [facility] Comment on above: Performed By: #### H IV12 #### [facility] [address] [address] [address] Jeronimo Melgar PPX Negative Normal NEGATIVE [facility] Comment on above: Performed By: #### H IV12 #### [facility] [address] [address] [address] Jeronimo Melgar TCA Negative Normal NEGATIVE [facility] Comment on above: Performed By: #### H IV12 #### [facility] [address] [address] [address] Jeronimo Melgar THC Negative Normal NEGATIVE [facility] Comment on above: Performed By: #### H IV12 #### [facility] [address] [place] [address] Dr. Jeronimo Melgar GLYCOHEMOGLOBIN A1Con 2022 ADA RECOMMENDATION SEE BELOW Normal [facility] Comment on above: Result Comment: ADA RECOMMENDED LIMIT 4.0 - 6.0 ADA THERAPEUTIC TARGET < 7.0 ACTION SUGGESTED > 7.0 Performed By: #### A 1C #### [facility] [address] [place] [address] Dr. Jeronimo Melgar Glucose [Mass/Vol] 100 mg/dL Normal [facility] Comment on above: Performed By: #### A 1C #### [facility] [address] [place] [address] Dr. Jeronimo Melgar HbA1c (Bld) [Mass fraction] 5.1 % Normal 4.5-6.2 [facility] Comment on above: Performed By: #### A 1C #### [facility] [address] [place] [address] Dr. Jeronimo Melgar TYPE AND SCREENon 04-19-2022 TYPE AND SCREEN Negative Normal [facility] Comment on above: Performed By: #### B OX #### [facility] [address] [place] [address] Dr. Jeronimo Melgar CBC AUTO DIFFon 04-02-2022 BASO # 0.0 103/ul Normal 0.0-0.1 [facility] Comment on above: Performed By: #### C BC #### [facility] [address] [place] [address] Dr. Jeronimo Melgar Basophils/100 WBC (Bld) 0.3 % Normal 0.2-2.0 [facility] Comment on above: Performed By: #### C BC #### [facility] [address] [place] [address] Dr. Jeronimo Melgar EO # 0.0 103/ul Normal 0.0-0.7 [facility] Comment on above: Performed By: #### C BC #### [facility] [address] [place] [address] Dr. Jeronimo Melgar Eosinophils/100 WBC (Bld) 0.2 % Critically low 0.9-7.0 [facility] Comment on above: Performed By: #### C BC #### [facility] [address] [place] [address] Dr. Jeronimo Melgar Erythrocyte distribution width (RBC) [Ratio] 12.9 % Normal 11.0-15.0 [facility] Comment on above: Performed By: #### C BC #### [facility] [address] [place] [address] Dr. Jeronimo Melgar Hematocrit (Bld) [Volume fraction] 37.5 % Normal 36.0-48.0 [facility] Comment on above: Performed By: #### C BC #### [facility] [address] [place] [address] Dr. Jeronimo Melgar Hemoglobin (Bld) [Mass/Vol] 12.4 g/dL Normal 12.0-16.0 [facility] Comment on above: Performed By: #### C BC #### [facility] [address] [place] [address] Dr. Jeronimo Melgar IG # 0.05 10e3/ul Critically high 0.00-0.03 [facility] Comment on above: Performed By: #### C BC #### [facility] [address] [place] [address] Dr. Jeronimo Melgar IG % 0.3 % Normal 0.0-0.5 [facility] Comment on above: Performed By: #### C BC #### [facility] [address] [place] [address] Dr. Jeronimo Melgar LYMPH # 2.0 103/ul Normal 1.2-3.8 [facility] Comment on above: Performed By: #### C BC #### [facility] [address] [place] [address] Dr. Jeronimo Melgar Lymphocytes/100 WBC (Bld) 14.1 % Critically low 20.5-60.0 [facility] Comment on above: Performed By: #### C BC #### [facility] [address] [place] [address] Dr. Jeronimo Melgar MANUAL DIFF REQ NO Normal [facility] Comment on above: Performed By: #### C BC #### [facility] [address] [place] [address] Dr. Jeronimo Melgar MCH (RBC) [Entitic mass] 27.9 pg Normal 26.7-34.0 [facility] Comment on above: Performed By: #### C BC #### [facility] [address] [place] [address] Dr. Jeronimo Melgar MCHC (RBC) [Mass/Vol] 33.1 g/dL Normal 29.9-35.[address] [facility] Comment on above: Performed By: #### C BC #### [facility] [address] [place] [address] Dr. Jeronimo Melgar MCV (RBC) [Entitic vol] 84.3 fL Normal 81.0-99.0 [facility] Comment on above: Performed By: #### C BC #### [facility] [address] [place] [address] Dr. Jeronimo Melgar MONO # 0.6 103/ul Normal 0.3-0.[address] [facility] Comment on above: Performed By: #### C BC #### [facility] [address] [place] [address] Dr. Jeronimo Melgar Monocytes/100 WBC (Bld) 4.0 % Normal 1.7-12.[address] [facility] Comment on above: Performed By: #### C BC #### [facility] [address] [place] [address] Dr. Jeronimo Melgar NEUT # 11.7 103/ul Critically high 1.4-6.5 [facility] Comment on above: Performed By: #### C BC #### [facility] [address] [place] [address] Dr. Jeronimo Melgar Neutrophils/100 WBC (Bld) 81.1 % Critically high 43.0-75.[address] [facility] Comment on above: Performed By: #### C BC #### [facility] [address] [place] [address] Dr. Jeronimo Melgar Platelet mean volume (Bld) [Entitic vol] 10.2 fL Normal 9.5-13.[address] [facility] Comment on above: Performed By: #### C BC #### [facility] [address] [place] [address] Dr. Jeronimo Melgar PLT 420 103/ul Normal 150-[address] [facility] Comment on above: Performed By: #### C BC #### [facility] [address] [place] [address] Dr. Jeronimo Melgar RBC 4.45 106/ul Normal 4.20-5.[address] [facility] Comment on above: Performed By: #### C BC #### [facility] [address] [place] [address] Dr. Jeronimo Melgar WBC 14.4 103/ul Critically high 4.0-11.0 [facility] Comment on above: Performed By: #### C BC #### [facility] [address] [place] [address] Dr. Jeronimo Melgar ER URINE PROFILEon 2 Bilirubin Ql (U) Negative Normal NEGATIVE [facility] Comment on above: Performed By: #### B OX #### [facility] [address] [place] [address] Dr. Jeronimo Melgar Clarity (U) CLEAR Normal CLEAR [facility] Comment on above: Performed By: #### B OX #### [facility] [address] [place] [address] Dr. Jeronimo Melgar Color (U) YELLOW Normal YELLOW [facility] Comment on above: Performed By: #### B OX #### [facility] [address] [place] [address] Dr. Jeronimo FLORES A micrscopic examination will be performed if indicated. Normal [facility] Comment on above: Performed By: #### B OX #### [facility] [address] [place] [address] Dr. Jeronimo Melgar Glucose Ql (U) Negative Normal NEGATIVE [facility] Comment on above: Performed By: #### B OX #### [facility] [address] [place] [address] Dr. Jeronimo Melgar Hemoglobin Ql (U) Negative Normal NEGATIVE [facility] Comment on above: Performed By: #### B OX #### [facility] [address] [place] [address] Dr. Jeronimo Melgar Ketones Ql (U) >=80 Abnormal NEGATIVE [facility] Comment on above: Performed By: #### B OX #### [facility] [address] [place] [address] Dr. Jeronimo Melgar LEUKOCYTES Negative Normal NEGATIVE [facility] Comment on above: Performed By: #### B OX #### [facility] [address] [place] [address] Dr. Jeronimo Melgar Nitrite Ql (U) Negative Normal NEGATIVE [facility] Comment on above: Performed By: #### B OX #### [facility] [address] [place] [address] Dr. Jeronimo Melgar pH (U) 7.0 [pH] Normal 5-9 [facility] Comment on above: Performed By: #### B OX #### [facility] [address] [place] [address] Dr. Jeronimo Melgar SPEC GRAVITY 1.020 Normal 1.005-<=1.025 [facility] Comment on above: Performed By: #### B OX #### [facility] [address] [place] [address] Dr. Jeronimo Melgar UA PROTEIN TRACE Normal NEGATIVE/ TRACE [facility] Comment on above: Performed By: #### B OX #### [facility] [address] [address] [address] Jeronimo Melgar UR MICRO IND NOT INDICATED Normal [facility] Comment on above: Performed By: #### B OX #### [facility] [address] [place] [address] Dr. Jeronimo Melgar Urobilinogen Qn (U) 1.0 {Pepito'U}/dL Normal 0.2 - 1. 0 [facility] Comment on above: Performed By: #### B OX #### [facility] [address] [place] [address] Dr. Jeronimo Melgar PROF CHEM 8 (BAS METB)on Anion gap [Moles/Vol] 12.7 mmol/L Normal [facility] Comment on above: Performed By: #### B MP #### [facility] [address] [place] [address] Dr. Jeronimo Melgar Calcium [Mass/Vol] 9.1 mg/dL Normal 8.5-10.1 [facility] Comment on above: Performed By: #### B MP #### [facility] [address] [place] [address] Dr. Jeronimo Melgar Chloride [Moles/Vol] 103 mmol/L Normal 98-107 [facility] Comment on above: Performed By: #### B MP #### [facility] [address] [place] [address] Dr. Jeronimo Melgar CO2 [Moles/Vol] 23.9 mmol/L Normal 21.0-32.0 [facility] Comment on above: Performed By: #### B MP #### [facility] [address] [address] [address] Jeronimo Melgar Creatinine [Mass/Vol] 0.78 mg/dL Normal 0.55-1.02 [facility] Comment on above: Performed By: #### B MP #### [facility] [address] [address] [address] Jeronimo Melgar EGFR-AF IVORIAN >60 Normal >=60 [facility] Comment on above: Performed By: #### B MP #### [facility] [address] [place] [address] Dr. Jeronimo Melgar EGFR-NON AF IVORIAN >60 Normal >=60 [facility] Comment on above: Performed By: #### B MP #### [facility] [address] [place] [address] Dr. Jeronimo Melgar Glucose [Mass/Vol] 155 mg/dL Critically high 74-106 T [facility] Comment on above: Performed By: #### B MP #### [facility] [address] [place] [address] Dr. Jeronimo Melgar Potassium [Moles/Vol] 3.6 mmol/L Normal 3.5-5.1 [facility] Comment on above: Performed By: #### B MP #### [facility] [address] [place] [address] Dr. Jeronimo Melgar Sodium [Moles/Vol] 136 mmol/L Normal 136-145 [facility] Comment on above: Performed By: #### B MP #### [facility] [address] [place] [address] Dr. Jeronimo Melgar Urea nitrogen [Mass/Vol] 7.0 mg/dL Normal 7.0-18.0 [facility] Comment on above: Performed By: #### B MP #### [facility] [address] [place] [address] Dr. Jeronimo Melgar Urea nitrogen/Creatinine [Mass ratio] 9.0 mg/mg Normal [facility] Comment on above: Performed By: #### B MP #### [facility] [address] [place] [address] Dr. Jeronimo Melgar US PREG TVon 03-28-2022 [...] ANGELA SCOTT Date: 2022-03-28 16:[address] [facility] US PELVIS AND TRANSVAGon US PELVIS [...] IMPRESSION: Normal exam Electronically authenticated by: CHRISTIAN HOPE Date: 2021-10-17 16:[address] [facility] CHLAMYDIA/GONOCOCCUS MILY (SW AB/URINE/PAPon 10-14-2021 Chlamydia trachomatis, MILY Positive Abnormal Negative [facility] Comment on above: Result Comment: . Performed By: #### C T/NGNA #### [facility] [address] [address] [address] Jeronimo Melgar Neisseria gonorrhoeae, MILY Negative Normal Negative [facility] Comment on above: Performed By: #### C T/NGNA #### [facility] [address] [address] [address] Jeronimo Melgar VAGINITIS/VAGINOSIS DNA PROB Obed 10-13-2021 Yang species Negative Normal Negative [facility] Comment on above: Performed By: #### V AGINT #### [facility] [address] [address] [address] Jeronimo Melgar Gardnerella vaginalis Negative Normal Negative [facility] Comment on above: Performed By: #### V AGINT #### [facility] [address] [address] [address] Jeronimo Melgar Trichomonas vaginalis Negative Normal Negative [facility] Comment on above: Performed By: #### V AGINT #### [facility] [address] [address] [address] Jeronimo Melgar XR foot LT min 3V*on 022 XR foot LT min 3V* [facility] [place] [address] [place] [address] XRay Report Signed Patient: Lia Desai MR#: [id number] : 2000 Acct:[id number] Age/Sex: 20 / F ADM Date: 07/18/21 Loc: ER Room: Type: [facility] ER Attending Dr: Ordering Provider: Oneil Ricci APRN Date of Service: 07/18/21 XR/XR foot LT min 3V*: Extremity Injury, Lower ([id number]) XR/XR ankle LT min 3V*: Extremity Injury, [...] Brewer Jr., M.D.07/18/2021 6:15 PM Dictation Location: [place] [address] Transcribed By: [id number] [id number] Dictated By: Bijan Brewer Jr, MD 07/18/211812 Signed By: 07/18/211814 [facility] XR knee RT 4V*on 05-15-2021 XR knee RT 4V* [facility] [place] [address] [place], [place] [id number] XRay Report Signed Patient: Lia Desai MR#: [id number] : 2000 Acct:[id number] Age/Sex: 20 / F ADM Date: 05/15/21 Loc: ER Room: Type: [facility] ER Attending Dr: Ordering Provider: Yovani [...] Ana Juan M.D.05/15/2021 8:11 PM Dictation Location: [place] [address] Transcribed By: [facility] 05/15/212010 Dictated By: Ana Juan II, MD 05/15/212008 Signed By: 05/15/212010 [facility] Vital Signs Date Time Vital Sign Value Performing Clinician Facility 10-26-2024 13:28-0400 Body mass index (BMI) [Ratio] 41.29 kg/m2 [facility] Work Phone: [facility] 10-26-2024 13:28-040 Body weight 116.03 kg [facility] Work Phone: [facility] 10-26-2024 13:28-040 Diastolic blood pressure 70 mm[Hg] [facility] Work Phone: [facility] 10-26-2024 13:28-0400 Systolic blood pressure 108 mm[Hg] [facility] Work Phone: [facility] 10-05-2024 11:32-0400 Body mass index (BMI) [Ratio] 40.51 kg/m2 Robert Janes DO Work Phone: [facility] 10-05-2024 11:32-0400 Body weight 113.85 kg Robert Janes DO Work Phone: [facility] 10-05-2024 11:32-0400 Diastolic blood pressure 78 mm[Hg] Robert Janes DO Work Phone: [facility] 10-05-2024 11:32-0400 Systolic blood pressure 124 mm[Hg] Robert Janes DO Work Phone: [facility] 09-07-2024 11:13-0400 Body mass index (BMI) [Ratio] 41.08 kg/m2 Robert Janes DO Work Phone: [facility] 09-07-2024 11:13-0400 Body weight 115.44 kg Robert Janes DO Work Phone: [facility] 09-07-2024 11:13-0400 Diastolic blood pressure 80 mm[Hg] Robert Janes DO Work Phone: [facility] 09-07-2024 11:13-0400 Systolic blood pressure 108 mm[Hg] Robert Janes DO Work Phone: [facility] 08-06-2024 15:53-0400 Body mass index (BMI) [Ratio] 41.8 kg/m2 [facility] Nurse [facility] 08-06-2024 15:53-0400 Body weight 117.48 kg [facility] Nurse [facility] 08-06-2024 15:53-0400 Diastolic blood pressure 84 mm[Hg] [facility] Nurse [facility] 08-06-2024 15:53-0400 Systolic blood pressure 118 mm[Hg] [facility] Nurse [facility] 01-14-2024 11:48-0400 Body mass index (BMI) [Ratio] 43 kg/m2 [facility] GENE Work Phone: [facility] 01-14-2024 11:48-0400 Body weight 120.84 kg [facility] PA Work Phone: [facility] 01-14-2024 11:48-0400 Diastolic blood pressure 70 mm[Hg] [facility] PA Work Phone: [facility] 01-14-2024 11:48-0400 Systolic blood pressure 120 mm[Hg] [facility] PA Work Phone: [facility] 11-28-2023 08:40-0400 Body mass index (BMI) [Ratio] 44.89 kg/m2 Robert Janes DO Work Phone: [facility] 11-28-2023 08:40-0400 Body weight 126.14 kg Robert Janes DO Work Phone: [facility] 11-28-2023 08:40-0400 Diastolic blood pressure 86 mm[Hg] Robert Janes DO Work Phone: [facility] 11-28-2023 08:40-0400 Systolic blood pressure 132 mm[Hg] Robert Janes DO Work Phone: [facility] 07-18-2021 16:56-0400 Body height 167.64 cm [facility] 07-18-2021 16:56-0400 Body mass index (BMI) [Percentile] Per age and sex 98.9 % [facility] 07-18-2021 16:56-0400 Body mass index (BMI) [Ratio] 44.3 kg/m2 [facility] 07-18-2021 16:56-0400 Body temperature 98.3 [degF] [facility] 07-18-2021 16:56-0400 Body weight 124.6 kg [facility] 07-18-2021 16:56-0400 Diastolic blood pressure 108 mm[Hg] [facility] 07-18-2021 16:56-0400 Heart rate 80 /min [facility] 04-12-2022 16:56-0400 Respiratory rate 18 /min [facility] 07-18-2021 16:56-0400 Systolic blood pressure 162 mm[Hg] [facility] 05-15-2021 19:47-0500 Body height 167.64 cm [facility] 05-15-2021 19:47-0500 Body mass index (BMI) [Percentile] Per age and sex 98.9 % [facility] 05-15-2021 19:47-0500 Body mass index (BMI) [Ratio] 43.7 kg/m2 [facility] 05-15-2021 19:47-0500 Body temperature 98.8 [degF] [facility] 05-15-2021 19:47-0500 Body weight 122.95 kg [facility] 05-15-2021 19:47-0500 Diastolic blood pressure 65 mm[Hg] [facility] 05-15-2021 19:47-0500 Heart rate 75 /min [facility] 05-15-2021 19:47-0500 Respiratory rate 16 /min [facility] 05-15-2021 19:47-0500 SaO2% (BldA) [Mass fraction] 100 % [facility] 05-15-2021 19:47-0500 Systolic blood pressure 144 mm[Hg] [facility] Encounters Encounter Date Encounter Type Care Provider Facility Start: 10-28-2024 End: 10-28-2024 Clinisync Result Encounter Robert Janes DO Work Phone: [facility] Unsolicited Start: 10-28-2024 End: 10-28-2024 Clinisync Result Encounter Robert Janes DO Work Phone: [facility] Unsolicited Start: 10-27-2024 End: 10-28-2024 Clinisync Result Encounter Robert Janes DO Work Phone: [facility] Unsolicited Start: 10-27-2024 End: 10-28-2024 Clinisync Result Encounter Robert Janes DO Work Phone: [facility] Unsolicited Start: 10-26-2024 End: 10-28-2024 Clinisync Result Encounter Robert Janes DO Work Phone: [facility] Unsolicited Start: 10-26-2024 End: 10-28-2024 Clinisync Result Encounter Robert Janes DO Work Phone: [facility] Unsolicited Start: 10-26-2024 End: 10-26-2024 Office outpatient visit 15 minutes [facility] Work Phone: [facility] Comment on above: 20 weeks gestation o f ([facility]); Second trimester ([facility]) Start: 10-26-2024 End: 10-26-2024 ambulatory NANO BACK Not Available Start: 10-26-2024 End: 10-26-2024 ambulatory ROBERT AJNES Not Available Start: 10-15-2024 End: 10-15-2024 Emergency department patient visit [facility] Start: 10-05-2024 End: 10-05-2024 Bamboo flowsheet Robert Janes DO Work Phone: [facility] Start: 10-05-2024 End: 10-12-2024 Bamboo flowsheet Robert Janes DO Work Phone: [facility] Start: 10-05-2024 End: 10-12-2024 Clinisync Result Encounter Robert Janes DO Work Phone: [facility] Unsolicited Start: 10-05-2024 End: 10-06-2024 External Result Encounter Robert Janes DO Work Phone: [facility] Unsolicited Start: 10-05-2024 End: 10-05-2024 ambulatory ROBERT JANES Not Available Start: 10-05-2024 End: 10-05-2024 Office outpatient visit 15 minutes Robert Janes DO Work Phone: [facility] Comment on above: Second trimester pre gnancy ([facility]); 17 weeks gestation of ([facility]); Well woman exam with routine gynecological exam; Exposure to STD; Need for maternal serum alpha-protein (MSAFP) screening ([facility]); Screening, , for anatomic survey ([facility]); SOB (shortness of breath); Dizziness Start: 10-05-2024 End: 10-05-2024 Patient encounter procedure Robert Janes DO Work Phone: [facility] Start: 09-20-2024 ambulatory DIRECTOR OF TEENAGE ACTIVITIES-Shakeel Garzon Fac ility:[facility] Start: 09-07-2024 End: 09-07-2024 Bamboo flowsheet Robert Janes DO Work Phone: [facility] Start: 09-07-2024 End: 09-08-2024 Bamboo flowsheet Robert Janes DO Work Phone: [facility] Start: 09-07-2024 End: 09-08-2024 Clinisync Result Encounter Robert Janes DO Work Phone: [facility] External Department Unsolicited Start: 09-07-2024 End: 09-07-2024 ambulatory ROBERT JANES Not Available Start: 09-07-2024 End: 09-07-2024 Office outpatient visit 15 minutes Robert Janes DO Work Phone: [facility] Comment on above: Constipation, unspec ified constipation type (Primary Dx); First trimester ; 13 weeks gestation of ; Nausea and vomiting in Start: 08-18-2024 End: 08-18-2024 Clinisync Result Encounter Robert Janes DO Work Phone: [facility] External Department Unsolicited Start: 08-18-2024 End: 08-18-2024 Clinisync Result Encounter Robert Janes DO Work Phone: [facility] External Department Unsolicited Start: 08-11-2024 Emergency department patient visit Errol Martin PAC Facility:[facility] Start: 08-06-2024 End: 08-06-2024 Office outpatient visit 5 minutes [facility] Janes Nurse [facility] Comment on above: GA: 8w4d Start: 08-06-2024 End: 08-06-2024 ambulatory ROBERT SEVERINOO Not Available Start: 08-03-2024 End: 08-03-2024 Emergency department patient visit [facility] Start: 07-20-2024 End: 07-20-2024 Emergency department patient visit [facility] Start: 07-03-2024 End: 07-03-2024 Clinisync Result Encounter [...] 06-07-2024 Emergency department patient visit None Provider Facility:[facility] Start: 06-03-2024 ambulatory ROBERT R JANES Facility: [facility] Start: 06-01-2024 End: 06-01-2024 ambulatory None Provider Facility:[facility] Start: 05-30-2024 End: 05-30-2024 Emergency department patient visit [facility] Start: 05-17-2024 End: 05-17-2024 Clinisync Result Encounter [...] 05-01-2024 End: 05-01-2024 Emergency department patient visit [facility] Start: 04-22-2024 End: 04-22-2024 Emergency department patient visit [facility] Start: 04-19-2024 Emergency department patient visit Unlisted Provider Facility:[facility] Start: 03-20-2024 Emergency department patient visit Oneil Littlejohn Facility:[facility] Start: 01-28-2024 End: 01-28-2024 ambulatory Errol Martin PAC Facility:[facility] Start: 01-14-2024 End: 01-14-2024 Bamboo flowsheet [facility] Work Phone: [facility] Start: 01-14-2024 End: 01-14-2024 Bamboo flowsheet [facility] Work Phone: [facility] Start: 01-14-2024 End: 01-14-2024 care visit [facility] Work Phone: [facility] Comment on above: 6 weeks f ollow-up Start: 01-14-2024 End: 01-14-2024 ambulatory NANO BACK Not Available Start: 12-06-2023 End: 12-06-2023 Clinisync [...] 11-13-2023 ambulatory ROBERT JANES Not Available Start: 05-17-2023 Clinisync Result Encounter Robert Janes DO Work Phone: [facility] Unsolicited Start: 05-17-2023 Clinisync Result Encounter Robert Janes DO Work Phone: [facility] Unsolicited Start: 05-14-2023 Chart abstracting Robert Janes DO Work Phone: [facility] Start: 05-07-2023 Documentation procedure Leah Hernandez RN [facility] Certified Nurse [facility] [place] Start: 04-19-2023 Telephone encounter Leah Hernandez RN [facility] Certified Nurse [facility] [place] Start: 04-17-2023 Telephone encounter Leah Hernandez RN [facility] Certified Nurse [facility] [place] Start: 04-05-2023 Orders Only Leah Hernandez RN [facility] Certified Nurse [facility] [place] Comment on above: Nausea and vomiting during (Primary Dx) Start: 08-08-2022 End: 08-09-[address] BALDOMERO ELLER . Facility:[facility] Start: 06-02-2022 End: 06-03-[address] BALDOMERO ELLER . Facility:[facility] Start: 05-18-2022 Encounter for other preprocedural examination DR BALDOMERO ELLER . [facility] Start: 05-17-2022 End: 05-17-[address] [...] DR ANA ARROYO Facility:[facility] Start: 03-29-2022 ambulatory [facility] Facility:[facility] Start: 03-28-2022 End: 03-29-[address] BALDOMERO ELLER . Facility:[facility] Start: 10-17-2021 End: 10-18-[address] BALDOMERO ELLER . Facility:[facility] Start: 10-12-2021 End: 10-12-[address] BALDOMERO ELLER . Facility:[facility] Start: 07-18-2021 End: 07-18-2021 Emergency department patient visit [facility] Start: 05-15-2021 End: 05-15-2021 Emergency department patient visit [facility] Procedures Date Procedure Procedure Detail Performing Clinician Start: 10-28-2024 CA ECHO DOPPLER COMPLETE Robert Janes DO Work Phone: Start: 10-27-2024 ECG 12-LEAD Robert Fazi o DO Work Phone: Start: 10-26-2024 Urnls dip stick/tabl et rgnt non-auto w/o micrscp [facility] Work Phone: Start: 10-26-2024 AFP, SERUM, OPEN SPI NA BIFIDA Robert Janes DO Work Phone: Start: 10-05-2024 RECURRENT VAGINITIS (HTRX) Robert Janes DO Work Phone: Start: 10-05-2024 Urnls dip stick/tabl et rgnt non-auto w/o micrscp Robert Janes DO Work Phone: Start: 10-05-2024 IGP,APTIMA HPV,AGE GDLN Robert Janes DO Work Phone: Start: 09-07-2024 [...] 05-17-2024 [facility] PREG QUANT HCG Core y Janse DO Work Phone: Start: 05-15-2024 [facility] PREG [...] Td Vaccines (2 - Td or Tdap) [facility] Start: 06-10-2025 End: 06-10-2025 ambulatory 06/10/2025 1:00 PM EST Initial [facility] [address] [place] [phone] [facility] Start: 06-10-2025 End: 06-10-2025 Professional / ancillary services management 06/10/2025 12:30 PM EST Ancillary Procedure [facility] [address] [place] [phone] [facility] Start: 12-07-2024 Influenza vaccination [facility] Start: 11-23-2024 End: 11-23-2024 Patient encounter procedure 11/23/2024 11:20 AM EDT Routine [facility] [address] [place] [phone] Robert Marrero, [facility] [place] [place] [address] [facility] Start: 10-26-2024 End: 10-26-2024 Professional / ancillary services management 10/26/2024 11:00 AM EDT Ancillary Procedure [facility] [address] [place] [phone] [facility] Start: 10-19-2024 End: 10-19-2024 Patient encounter procedure 10/19/2024 9:00 AM EDT Routine [facility] [address] [place] [phone] Robert Marrero, DO [facility] [place], [place] [id number] [facility] Start: 10-05-2024 End: 10-05-2025 12 lead ECG ECG 12 lead unit performed ECG Routine SOB (shortness of breath) Dizziness Expected: 10/05/2024 (Approximate), Expires: 10/05/2025 [facility] Work Phone: Comment on above: Expected: 10/05/2024 (Approximate), Expires: 10/05/2025 Start: 10-05-2024 End: 11-04-2024 Alpha fetoprotein, maternal Alpha fetoprotein, maternal Lab Routine Need for maternal serum alpha-protein (MSAFP) screening ([facility]) Expected: 10/05/2024 (Approximate), Expires: 11/04/2024 [facility] Comment on above: Expected: 10/05/2024 (Approximate), Expires: 11/04/2024 Start: 10-05-2024 End: 10-05-2026 Echocardiogram 2D complete Echocardiogram 2D complete Echocardiography Routine SOB (shortness of breath) Dizziness Expected: 10/05/2024 (Approximate), Expires: 10/05/2026 [facility] Comment on above: Expected: 10/05/2024 (Approximate), Expires: 10/05/2026 Start: 10-05-2024 End: 01-05-2025 US for US OB 14+ weeks anatomy scan Imaging Routine Screening, , for anatomic survey ([facility]) Expected: 10/05/2024, Expires: 01/05/2025 [facility] Comment on above: Expected: 10/05/2024 , Expires: 01/05/2025 Start: 10-05-2024 End: 10-05-2024 Patient encounter procedure 10/05/2024 11:10 AM EDT Routine [facility] [address] [place] [phone] Robert Marrero, [address] [place] [address] [facility] Start: 09-07-2024 End: 09-07-2024 Patient encounter procedure 09/07/2024 10:50 AM EDT Routine [facility] [address] [place] [address] Robert Marrero DO [address] [facility] [place] [address] [facility] Start: 08-06-2024 End: 08-06-2025 ABO/Rh ABO/Rh Lab Routine Missed menses , unspecified gestational age Expected: 08/06/2024 (Approximate), Expires: 08/06/2025 [facility] Comment on above: Expected: 08/06/2024 (Approximate), Expires: 08/06/2025 Start: 08-06-2024 End: 08-06-2025 Blood type and Indirect antibody screen panel - Blood Type and screen Lab Routine Missed menses , unspecified gestational age Expected: 08/06/2024 (Approximate), Expires: 08/06/2025 [facility] Comment on above: Expected: 08/06/2024 (Approximate), Expires: 08/06/2025 Start: 08-06-2024 End: 08-06-2025 Drugs of abuse panel - Urine by Screen method Rapid drug screen, urine Lab Routine , unspecified gestational age Encounter for supervision of normal first in first trimester Expected: 08/06/2024 (Approximate), Expires: 08/06/2025 [facility] Comment on above: Expected: 08/06/2024 (Approximate), Expires: 08/06/2025 Start: 07-31-2024 End: 10-30-2024 US Pelvis transvaginal US OB transvaginal Imaging Routine Missed menses Expected: 07/31/2024, Expires: 10/30/2024 [facility] Work Phone: Comment on above: Expected: 07/31/2024 , Expires: 10/30/2024 Start: 03-05-2024 Adult BMI Screening Adult BMI Screen ing [facility] Start: 03-05-2024 Tobacco Screening Tobacco Screening [facility] Start: 01-14-2024 End: 01-14-2024 Patient encounter procedure 01/14/2024 11:30 AM EDT Office Visit [facility] [address] [place] [phone] [facility] PA [address] [place] [address] Arrived [facility] Comment on above: Arrived Start: 12-08-2023 Influenza vaccination Influenza Vacc ine (#1) [facility] Start: 11-28-2023 End: 11-28-2023 Patient encounter procedure 11/28/2023 8:30 AM EDT Routine [facility] [address] [place] [phone] Robert Marrero, [address] [place] [address] Arrived [facility] Comment on above: Arrived Start: 09-26-2023 Screening for Chlamy driss trachomatis Chlamydia Screening [facility] Start: 06-03-2023 End: 06-03-2023 Patient encounter procedure 06/03/2023 2:10 PM EST Routine [facility] [address] [place] [phone] Robert Marrero, DO [address] [facility] [place] [address] [facility] Start: 04-17-2023 End: 04-17-2023 ambulatory 04/17/2023 8:30 AM EST Initial [facility] Certified Nurse [facility] - [place] [address] [phone] [facility] Certified Nurse [facility] - [place] Start: 12-07-2022 Influenza vaccination Influenza Vacc ine [facility] Start: 2022 Screening for malign ant neoplasm of cervix Pap Smear [facility] Start: 07-18-2021 X-ray of left ankle XR ankle LT min 3V* [facility] Start: 07-18-2021 X-ray of left foot XR foot LT min 3V * [facility] Start: 10-08-2019 Adult BMI Follow Up Plan Adult BMI F ollow Up Plan [facility] Start: 2013 Depression Screening Depression Scre ening [facility] Bacteria identified in Urine by Culture Urine culture Microbiology Routine Missed menses Ordered: 08/06/2024 [facility] Comment on above: Ordered: 08/06/2024 CBC W Auto Different ial panel - Blood CBC and differential Lab Routine Missed menses , unspecified gestational age Ordered: 08/06/2024 [facility] Comment on above: Ordered: 08/06/2024 CHLAMYDIA TRACHOMATI S (GENITO/STI) CHLAMYDIA TRACHOMATIS (GENITO/STI) Lab Routine Exposure to STD Ordered: 10/05/2024 [facility] Comment on above: Ordered: 10/05/2024 Cytology Cervical or vaginal smear or scraping study Pap Smear Pathology and Cytology Routine Well woman exam with routine gynecological exam Ordered: 10/05/2024 [facility] Comment on above: Ordered: 10/05/2024 Hemoglobin A1c/Hemoglobin.total in Blood Hemoglobin A1c Lab Routine Missed menses , unspecified gestational age Ordered: 08/06/2024 [facility] Comment on above: Ordered: 08/06/2024 Hepatitis B virus surface Ag [Presence] in Serum or Plasma by Immunoassay Hepatitis B surface antigen Lab Routine Missed menses , unspecified gestational age Ordered: 08/06/2024 [facility] Comment on above: Ordered: 08/06/2024 Hepatitis C virus Ab [Presence] in Serum or Plasma by Immunoassay Hepatitis C antibody Lab Routine Missed menses , unspecified gestational age Ordered: 08/06/2024 [facility] Comment on above: Ordered: 08/06/2024 HIV-1/HIV-2 antigen/antibody combination immunoassay HIV-1 and HIV-2 antibodies Lab Routine Missed menses , unspecified gestational age Ordered: 08/06/2024 [facility] Comment on above: Ordered: 08/06/2024 Neisseria gonorrhoea e DNA [Presence] in Unspecified specimen by MILY with probe detection Neisseria gonorrhea DNA probe, direct Lab Routine Exposure to STD Ordered: 10/05/2024 [facility] Comment on above: Ordered: 10/05/2024 Patient Education [facility] Work Phone: Patient referral [facility] Work Phone: Reagin Ab [Presence] in Serum by RPR RPR Lab Routine Missed menses , unspecified gestational age Ordered: 08/06/2024 [facility] Comment on above: Ordered: 08/06/2024 Rubella antibody, IgG Rubella an tibody, IgG Lab Routine Missed menses , unspecified gestational age Ordered: 08/06/2024 [facility] Comment on above: Ordered: 08/06/2024 SURESWAB(R) ADVANCED VAGINITIS PLUS, TMA SURESWAB(R) ADVANCED VAGINITIS PLUS, TMA Pathology and Cytology Routine Exposure to STD Ordered: 10/05/2024 [facility] Work Phone: Comment on above: Ordered: 10/05/2024 US Pelvis transvaginal US OB tra nsvaginal Imaging Routine Missed menses 08/06/2024 1:33 PM EDT [facility] Payers Date Payer Category Payer Medicaid (Managed Care) [employer] [id number] 2002 Medicaid [id number] 2001 Unknown [id number] 2.16.840.1.625126.3.579.2. 593 2001 Unknown [id number] 2.16.840.1.992229.3.579.2. 593 2001 Unknown [id number] 2.16.840.1.840995.3.579.2. 593 2001 Unknown [id number] 2.16.840.1.656724.3.579.2. 593 2001 Unknown [id number] 2.16.840.1.295598.3.579.2. 593 2001 Unknown [id number] 2.16.840.1.940185.3.579.2. 593 2001 Unknown [id number] 2.16.840.1.278839.3.579.2. 593 2001 Unknown [id number] 2.16.840.1.935159.3.579.2. 593 2001 Unknown [id number] 2.16.840.1.551025.3.579.2. 593 2001 Unknown [id number] 2.16.840.1.713648.3.579.2. 593 2001 Unknown [id number] 2.16.840.1.638494.3.579.2. 593 2001 Unknown [id number] 2.16.840.1.529206.3.579.2. 718 2001 Unknown [id number] 2.16.840.1.775494.3.579.2. 718 2001 Unknown [id number] 2.16.840.1.695399.3.579.2. 718 2001 Unknown [id number] 2.16.840.1.173213.3.579.2. 718 2001 Unknown [id number] 2.16.840.1.447130.3.579.2. 718 2001 Unknown [id number] 2.16.840.1.047432.3.579.2. 718 2001 Unknown [id number] 2.16.840.1.887272.3.579.2. 718 2001 Unknown [id number] 2.16.840.1.096398.3.579.2. 718 2001 Unknown [id number] 2.16.840.1.272440.3.579.2. 6 2001 Unknown [id number] 2.16.840.1.680908.3.579.2. 1286 2001 Unknown [id number] 2.16.840.1.813648.3.579.2. 128 2001 Unknown [id number] 2.16.840.1.122760.3.579.2. 128 2001 Unknown [id number] 2.16840.1.273123.3.579.2. 1285 2001 Unknown [id number] 2.16840.1.955937.3.579.2. 1285 2001 Unknown [id number] 2.840.1.600360.3.579.2. 1258 2001 Unknown [id number] 2.16840.1.110687.3.579.2. 1258 2001 Unknown [id number] 2.840.1.566065.3.579.2. 1258 2001 Unknown [id number] 2.840.1.608546.3.579.2. 1258 2001 Unknown [id number] 2.840.1.699982.3.579.2. 1258 2001 Unknown [id number] 2.16840.1.291146.3.579.2. 1258 2001 Unknown [id number] 2.16840.1.317277.3.579.2. 1258 2001 Unknown [id number] 2.16840.1.028977.3.579.2. 1258 2001 Unknown [id number] 2.16840.1.460583.3.579.2. 1258 2001 Unknown [id number] 2.16.840.1.884424.3.579.2. 1259 1959 Unknown [id number] Self-pay Self Pay [id number] Social History Date Type Detail Facility Start: 07-18-2021 End: 09-17-2023 Tobacco smoking status NHIS Never smoked tobacco (finding) [facility] Start: 2001 Sex Assigned At Female [facility] Start: 05-14-2023 Alcohol intake Lifetime non-drinker (finding) [facility] Start: 03-20-2023 [facility] Start: 05-01-2023 Gender identity Identifies as female gender (finding) [facility] Start: 05-01-2023 Sexual orientation Heterosexual (finding) [facility] Start: 05-14-2023 End: 2024 History of Social function [facility] Start: 05-14-2023 End: [address] [facility] Start: 08-01-2022 End: 09-17-2023 Tobacco use and exposure Smokeless tobacco non-user [facility] Start: 01-03-2024 End: 10-26-2024 Alcoholic beverage intake Ex-drinker (finding) [facility] History of tobacco use Passive smoker [facility] Housing Instability Unknown [facility] Start: 08-14-2022 Alcohol Comment social [facility] Start: 2001 Sex Assigned At Not on file [facility] Functional Status Date Assessment Result Facility 2024 Patient Health [facility] ionnaire 2 item (PHQ-2) [Reported] [facility] Clinical Notes 04-17-2023 to 10-26-2024 GENE Gutierrez - 10/26/2024 1:20 PM Eder Samuels NP - 10/05/2024 11:10 AM Eder Samuels NP - 09/07/2024 10:50 AM Sj Tavares MA - 08/06/2024 1:30 PM EDT Note Date & Type Note Facility 10-26-2024 History of Presen t illness Narrative Reason for Appointment: Patient ID: Lia Desai is a 24 y.o. female who presents [...] Diagnosis Date Noted 38 weeks gestation of ([facility]) 11/28/2023 Resolved Ambulatory Problems Diagnosis Date Noted [...] Vitals: Estimated body mass index is 41.29 kg/m as calculated from the following: Height as of 08/08/22: 5' 6 . Weight as of this encounter: 255 lb 12.8 oz. BP: 108/70 No LMP recorded (lmp unknown). Patient is . ASSESSMENT & PLAN ICD-10-CM 1. 20 weeks gestation of ([facility]) Z3A.20 POCT urinalysis dipstick manually resulted 2. Second trimester ([facility]) Z34.92 POCT urinalysis dipstick manually resulted Return [...] of: GENE Gutierrez documented in this encounter [facility] 10-15-2024 Note XR CHEST 1 VW History: Near syncope Procedure: Chest AP portable upright Comparison: 04/22/2024 Findings: The heart and lungs show no acute findings, and the mediastinum and anushka are grossly negative . No pneumothorax. Impression: No acute pulmonary process. Finalized by Angela Baker MD on 10/15/2024 1:51 PM [facility] 10-05-2024 History of Presen t illness Narrative [...] Diagnosis Date Noted 38 weeks gestation of ([facility]) 11/28/2023 Resolved Ambulatory Problems Diagnosis Date [...] nursing note reviewed. Exam conducted with a counselor education professor present. Vitals: Estimated body mass index is 40.51 kg/m as calculated from the following: Height as of 08/08/22: 5' 6 . Weight as of this encounter: 251 lb. BP: 124/78 No LMP recorded (lmp unknown). Patient is . ASSESSMENT & PLAN ICD-10-CM 1. Second trimester ([facility]) Z34.92 POCT urinalysis dipstick manually resulted 2. 17 weeks gestation of ([facility]) Z3A.17 3. Well woman exam with routine gynecological exam Z01.419 Pap Smear 4. Exposure to STD Z20.2 SURESWAB(R) ADVANCED VAGINITIS PLUS, TMA CHLAMYDIA TRACHOMATIS (GENITO/STI) Neisseria gonorrhea DNA probe, direct 5. Need for maternal serum alpha-protein (MSAFP) screening ([facility]) Z36.1 Alpha fetoprotein, maternal Alpha fetoprotein, maternal 6. Screening, , for anatomic survey ([facility]) Z36.89 US OB 14+ weeks anatomy scan [...] Robert Marrero DO documented in this encounter [facility] 09-20-2024 Note Patient Education Ma terials Follows:Disease [...] to help relieve symptoms, such as: ? Qsgt-wkp-ayshyyy cold medicines. ? Medicines to reduce coughing [...] other clear broths. General instructions ? Take cxwr-hyv-yegsxgw and prescription medicines only as told by [...] cannot use soap and water, use hand combat systems engineer. ? Avoid touching your mouth, face, [...] get better within 7?10 days. ? Take oiam-yfw-snkxqal and prescription medicines only as told by your doctor. This information is not intended to replace advice given to (more content not included)... [facility] 09-07-2024 History of Presen t illness [...] History: Diagnosis Date Bacterial vaginosis Chlamydia Depression ([facility]) Family history of breast cancer Family history of uterine cancer HISTORY PAST MEDICAL HISTORY SOCIAL HISTORY Past Medical History: Diagnosis Date Bacterial vaginosis Chlamydia Depression ([facility]) Family history of breast cancer Family history [...] nursing note reviewed. Exam conducted with a counselor education professor present. Vitals: Estimated body mass index is [...] Robert Marrero DO documented in this encounter [facility] 08-11-2024 Note Education Materials Obstetrics and Gynecology [...] provider. ? Do not use any prescription, piuq-fvr-cwfflvj, or herbal medicines for morning sickness without [...] to throw up. Foods to avoid ? Perla foods. ? Fatty foods. ? Spicy foods. [...] body to make you feel better. ? Choudrant your teeth after throwing up or rinse [...] provider. Document Revised: 12/26/2023 Document Reviewed: 07/04/2023 [employer] Patient Education ? 2023 [employer]. [facility] 08-06-2024 History of Presen t illness [...] History: Diagnosis Date Bacterial vaginosis Chlamydia Depression ([facility]) Family history of breast cancer Family history [...] DILATION AND CURETTAGE OF UTERUS TONSILLECTOMY 2012 Allergies Allergen Reactions Azithromycin Macrolides And Ketolides [...] or undercooked meat, and stay away from [facility]. Patient has also been advised to not [...] Zaida Tavares MA documented in this encounter [facility] 06-07-2024 Note Education Materials Orthopedics Flank Pain, [...] as told by your doctor. ? Take bzat-pva-djslchq and prescription medicines only as told by [...] provider. Document Revised: 06/05/2021 Document Reviewed: 06/05/2021 [employer] Patient Education ? [facility] Note Education Materials Infectious Disease Influenza, [...] doctor may want you to: ? Take vxig-pwa-trtixxh medicines. ? Drink plenty of fluids. The [...] Applesauce. ? Rice. ? Lean meats. ? [place]. ? Crackers. ? Do not eat or drink: ? Fluids that have a lot of sugar or caffeine. ? Alcohol. ? Spicy or fatty foods. General instructions ? Take xhea-eje-yicfusj and prescription medicines only as told by [...] use soap and water, use alcohol-based hand combat systems engineer. ? Keep all follow-up visits. How is [...] hospital. Summary ? (more content not included)... [facility] 03-20-2024 Note Education Materials Obstetrics and [...] these instructions at home: Medicines ? Take bhhh-nnp-evbgfst and prescription medicines as told by your [...] for Disease Control and Prevention: www.cdc.gov ? [employer] [employer]: www.ashastd.org ? Office on [...] provider. Document Revised: 09/22/2020 Document Reviewed: 09/22/2020 Elsevier Patient Education ? 2023 [employer] Orthopedics Acute Back Pain, Adult Acute back pain is sudden and usually short-lived. It is often caused by an injury to the muscles and tissues in the back. The injury may resul (more content not included)... [facility] 01-28-2024 Note Patient Education Ma terials [...] to help relieve symptoms, such as: ? Bvih-nyl-verygsc cold medicines. ? Cough suppressants. Coughing is [...] other clear broths. General instructions ? Take oiiy-tty-jaqblth and prescription medicines only as told by [...] and water are not available, use hand combat systems engineer. ? Avoid touching your mouth, face, [...] These symptoms may (more content not included)... [facility] 01-14-2024 History of Presen t illness [...] History: Diagnosis Date Bacterial vaginosis Chlamydia Depression ([facility]) Family history of breast cancer Family history of uterine cancer HISTORY PAST MEDICAL HISTORY SOCIAL HISTORY Past Medical History: Diagnosis Date Bacterial vaginosis Chlamydia Depression ([facility]) Family history of breast cancer Family history [...] nursing note reviewed. Exam conducted with a counselor education professor present. Vitals: Estimated body mass index is [...] of: GENE Gutierrez documented in this encounter [facility] 11-28-2023 History of Presen t illness Narrative [...] History: Diagnosis Date Bacterial vaginosis Chlamydia Depression ([facility]) Family history of breast cancer Family history of uterine cancer HISTORY PAST MEDICAL HISTORY SOCIAL HISTORY Past Medical History: Diagnosis Date Bacterial vaginosis Chlamydia Depression (CMS/HCC) Family history of breast cancer Family history [...] nursing note reviewed. Exam conducted with a counselor education professor present. Vitals: Estimated body mass index is [...] Robert Marrero DO documented in this encounter [facility] 05-07-2023 History of Presen t illness Narrative Letter sent to patient via mal and also to her My Chart regarding her missed OB intake appointment and also her MICHAEL for her Chlamydia. documented in this encounter [facility] 04-19-2023 Miscellaneous Notes Called patient to reschedule her IOB intake visit. No answer. Left message to call office to reschedule her appointment. documented in this encounter [facility] 04-19-2023 Telephone encounter Note Called patient to reschedule her IOB intake visit. No answer. Left message to call office to reschedule her appointment. [facility] 04-17-2023 Miscellaneous Notes Patient called for her OB intake per phone. No answer. Left message to call office. documented in this encounter [facility] 04-17-2023 Telephone encounter Note Patient called for her OB intake per phone. No answer. Left message to call office. [facility] Evaluation note No assessment inform ation [facility] Work Phone: Evaluation note Diagnosis 6 weeks follow-up documented in this encounter [facility]* Diagnosis Third trimester state, incidental 38 weeks gestation of documented in this encounter [facility]* Diagnosis Nausea and vomiting during - Primary [facility] Diagnosis Missed menses , unspecified gestational age Encounter for supervision of normal first in first trimester [facility] Diagnosis Constipation, unspecified constipation type- Primary First trimester state, incidental 13 weeks gestation of Nausea and vomiting in Unspecified vomiting of , unspecified as to episode of care [facility]* Diagnosis Second trimester ([facility]) state, incidental 17 weeks gestation of ([facility]) Well woman exam with routine gynecological exam Routine gynecological examination Exposure to STD Need for maternal serum alpha-protein (MSAFP) screening ([facility]) Screening, , for anatomic survey ([facility]) Encounter for anatomic survey SOB (shortness of breath) Shortness of breath Dizziness Dizziness and giddiness documented [facility]* Diagnosis 20 weeks gestation of ([facility]) Second trimester ([facility]) state, incidental documented in this encounter [facility] HealthcareInstructionsNot on filedocumented in this encounterProS[facility] SystemInstructionsNot on filedocumented in this encounterProSheltering [facility] System Chief Complaint and Reason for [...] Dates NON STAFF Primary Care Provider Active Refuse And Recycling Worker Relationship Specialty Start Date End Date Nano Back PA [address] [place] [address] [place] [address] PCP - [facility] 01/07/24 Refuse And Recycling Worker Relationship Specialty Start Date End Date Services, [place] [id number] [facility] [place] PCP - General Family Medicine 08/11/18 Refuse And Recycling Worker Relationship Specialty Start Date End Date Services, [facility] [address] [place], [place] PCP - General Family Medicine 08/11/18 Refuse And Recycling Worker Relationship Specialty Start Date End Date Services, [facility] [address], [place] PCP - General Family Medicine 08/11/18 Refuse And Recycling Worker Relationship Specialty Start Date End Date Nano Back PA [address] [place], [place] [id number] [facility] 01/07/24 Refuse And Recycling Worker Relationship Specialty Start Date End Date Nano Back PA [address] [place] [address] [facility] 01/07/24 Refuse And Recycling Worker Relationship Specialty Start Date End Date Nano Back PA [address] [place] [address] [place] [address] [facility] 01/07/24 Refuse And Recycling Worker Relationship Specialty Start Date End Date Nano Back PA [address] [place], [place] [id number] [facility] 01/07/24 Refuse And Recycling Worker Relationship Specialty Start Date End Date Nano Back PA [address] [place], [place] [id number] [facility] 01/07/24 Refuse And Recycling Worker Relationship Specialty Start Date End Date Nano Back PA [address] [place], [place] [id number] PCP - [facility] 01/07/24 Refuse And Recycling Worker Relationship Specialty Start Date End Date Nano Back PA [address] [place] [address] [place] [address] PCP - [facility] 01/07/24 Goals (unrecognized section and content) Goals may be documented in a n alternate sectionNot on filedocumented as of this encounterNot on filedocumented as of this encounterNot on filedocumented as of this encounterNot on filedocumented as of this encounter INFORMATION SOURCE (unrecogn ized section and content) DATE CREATED AUTHOR 07/27/2021 [facility] DATE CREATED AUTHOR AUTHOR'S ORGANIZ ATION 08/16/2022 [facility] DATE CREATED AUTHOR AUTHOR'S ORGANIZ ATION 09/26/2024 [facility] DATE CREATED AUTHOR AUTHOR'S ORGANIZ ATION 10/20/2024 [facility] DATE CREATED AUTHOR AUTHOR'S ORGANIZ ATION 10/27/2024 [facility] d[facility] Specialists EPIC Reason for Visit (unrecogniz ed section and [...] BE BASED ON THE PRIMARY CLINICAL RECORDS. [facility] [employer] [facility]. provides no warranty or guarantee of the accuracy or completeness of information in this document.
[2024-11-19 17:14] VITALS: BP 119/64; PULSE 102; TEMP 36.6
[2024-11-19 17:56] LABS: Glucose Urine UA NEGATIVE (NEGATIVE)
[2024-11-19 18:04] LABS: Cast Seen? NONE SEEN #/LPF (NONE SEEN); Crystals Seen? Seen #/HPF (None Seen)
[2024-11-19 18:05] LABS: Urine Culture Indicated YES-LC
== END 2024-11-19 20:01 | disposition home or self-care (01) ==
PROVIDERS: Admitting Provider Obstetrics & Gynecology; Visit Provider Obstetrics & Gynecology
DX: O26.899 Other specified pregnancy related conditions, unspecified trimester (principal); R10.9 Unspecified abdominal pain; Z3A.00 Weeks of gestation of pregnancy not specified
CPT/HCPCS: 81001; 87086; G0378; G0379

== ENCOUNTER 2024-12-09 09:26 | Outpatient (OUT) | payer OTHER, SELFPAY ==
--- OUTSIDE RECORDS SUMMARY | 2024-12-09 10:00 | XMS_ITS | CCD ---
Author Organization [facility] Care Team Providers Care 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[employer] Name Role Phone NON STAFF Primary Care Provider LAURA Kraft Emergency Provider [phone] NICOLE Ricci Emergency Provider [phone] DAPHNIE ., DR ALEXANDRE Attending Unavailabl e KARASIK ., DR ALEXANDRE Admitting Unavailabl [facility] Unava ilable KARASIK ., DR ALEXANDRE Consulting Unavailabl e LAVINIA, DR CHRISTIAN Doyle Consulting Unavailable KARASIK ., DR ALEXANDRE Consulting Unavailabl e KARASIK ., DR ALEXANDRE Attending Unavailabl e [facility] Unava ilable KARASIK ., DR ALEXANDRE Admitting Unavailabl e ANGELA SCOTT Consulting Unavailable DINA, DR ANA Dennis Attending Unavailable DINA, DR ANA Dennis Admitting [facility] Unava ilable DINA, DR ANA Dennis Consulting Unavailable BOATENG ., MR CUADRA Consulting Unavailable KARASIK ., DR ALEXANDRE Attending Unavailabl [facility] Unava ilable KARASIK ., DR ALEXANDRE Admitting Unavailabl e KARASIK ., DR ALEXANDRE Attending Unavailabl e [facility] Unava ilable KARASIK ., DR ALEXANDRE Admitting Unavailabl e KARASIK ., DR ALEXANDRE Consulting Unavailabl e JOANNE HUDSON Consulting Unavailable ENIO ATKINS Consulting Unavailable [facility] Unava ilable KARASIK ., [...] Consulting Unavaila ble Unavailable [facility] Foster Un[facility] Services, [facility] Primary Care Provider Mario PAC, Errol N [...] RyannCAROL barillas-C Doug Vasquez Attending Unavailable Ryann, INSURANCE PROFESSIONAL-C Doug Vasquez Admitting Unavailable [facility] Primary Care Unava ilable [facility] Primary Care Unava ilable COLE BLACKMON Attending Unavailab le [facility] Primary Care Unava ilable JULISA LAZO Attending Unavailable [facility] Primary Care Unava ilable LEIGH SMALLS Attending Unavailable [facility] Primary Care Unava ilable ANGELA GONGORA Attending Unavailable [facility] Primary Care Unava ilable ASHELY AYALA Attending Unavailable JANES, ROBERT Attending Unavailable JANES, ROBERT Attending Unavailable JANES, ROBERT Referring Unavailable NANO BACK Attending Unavailable ROBERT MARRERO Attending Unavailable ROBERT MARRERO Attending Unavailable NANO BACK Attending Unavailable Allergies Allergy Classification Reported Allergen(s) Allergy Type Date of Onset Reaction(s) Facility (1 source) Alfentanil Drug Allergy [facility] Repository (2 sources) Azithromycin; Translations: [AZITHROMYCIN] Drug Allergy 2 [facility] Repository (20 sources) Azithromycin Drug Allergy 2 [facility] Healthcare Work Phone: (20 sources) Macrolides And Ketolides Drug Allergy 4 Unknown [facility] Healthcare (20 sources) Wound Dressing Adhesive Drug Allergy 4 [facility] Healthcare (20 sources) metroNIDAZOLE; Translations: [METRONIDAZOLE] Drug Allergy 4 GI intolerance [facility] Healthcare Work Phone: (5 sources) Adhesive agent; Translations: [ADHESIVE] Propensity to adverse reactions to drug 3 [facility] (1 source) Adhesive bandage; Translations: [Adhesive Bandage] Propensity to adverse reactions (disorder) [facility] Repository (1 source) Azithromycin; Translations: [Zithromax] Drug Allergy [facility] Repository (1 source) metroNIDAZOLE; Translations: [Flagyl] Drug Allergy [facility] Repository Medications Current Medications Medication Drug Class(es) Dates Sig (Normalized) Sig (Original) [id number] 200 actuat albuterol 0.09 mg/actuat metered dose [...] days. 30 tablet 2 04/05/2023 05/05/2023 Active escitalopram 10 mg oral tablet (2 sources) Serotonin Reuptake Inhibitor Start: 11-23-2024 End: 12-23-2024 take 1 tablet by mouth once daily escitalopram (Lexapro) 10 MG tablet Indications: Episode of recurrent major depressive disorder, unspecified depression episode severity , Bipolar 1 disorder, depressed (HCC) , Anxiety, generalized , PTSD (post-traumatic stress disorder) Take 1 tablet (10 mg) by mouth Daily 30 tablet 1 11/23/2024 12/23/2024 Active folic acid 1 mg oral tablet (6 sources) Start: 03-06-2023 folic acid (Folvite) 1 MG tablet 0 Refill(s) 0 03/06/2023 Active metoclopramide 10 mg oral tablet (20 sources) Dopamine-2 Receptor Antagonist Start: 07-27-2024 End: 11-23-2024 metoclopramide (Reglan) 10 MG tablet Indications: Nausea and vomiting in (HHS-HCC) Take 1 tablet (10 mg) by mouth in the morning and 1 tablet (10 mg) at noon and 1 tablet (10 mg) in the evening. Take before meals. Take 1 tablet by mouth 30 minutes prior to meals 3 times daily as needed for nausea. 90 tablet 09/08/2024 11/23/2024 Discontinued naproxen 500 mg oral tablet (1 source) [...] Classification Problem Date Documented Da te Episodic/Chronic Anxiety disorders (4 sources) Generalized anxiety disorder; Translations: [Generalized anxiety disorder] 11-23-2024 Chronic Conditions associated with dizziness or vertigo (5 sources) Dizziness; Translations: [Dizziness and giddiness] Onset: 5 10-05-2024 Episodic Immunizations and screening for infectious disease (3 sources) Contact with and (suspected) exposure to infections with a predominantly sexual mode of transmission; Translations: [Exposure to sexually transmissible disorder] Onset: 3 10-05-2024 Episodic Menstrual disorders (4 sources) Irregular menstruation, unspecified; Translations: [Missed period] Onset: 3 Chronic Mood disorders (4 sources) Recurrent major depressive episodes; Translations: [Major depressive disorder, recurrent, unspecified] 11-23-2024 Chronic Nausea and vomiting (3 sources) Vomiting, [...] conditions (not mental disorders or infectious disease) (6 sources) Alpha-fetoprotein blood test status; Translations: [Encounter [...] [20 weeks gestation of ] 10-26-2024 Episodic Residual codes; unclassified (2 sources) Gestation period, 24 weeks; Translations: [24 weeks gestation of ] 11-23-2024 Episodic Residual codes; unclassified (2 sources) H/O: miscarriage; Translations: [Personal history of other complications of , childbirth and the puerperium] 11-23-2024 Episodic Sprains and strains (1 source) Sprain [...] (1 source) Cold Like Symptoms Onset: 5 Urinary tract infections (2 sources) Urinary tract infectious disease; Translations: [Urinary tract infection, site not specified] 11-23-2024 Episodic Viral infection (2 sources) COVID-19; Translations: [Disease caused by 2019-nCoV] Onset: Past or Other Problems Problem Classification Problem [...] disease of cervix uteri] Onset: 05-01-2024 Episodic Mood disorders (2 sources) Mood disorders Onset: 11-23-2024 11-23-2024 Other complications of (4 sources) Mild hyperemesis [...] Test Name Value Interpretation Reference Range Facility US OB LIMITED 1+ FETUSESon 0 11-23-2024 US OB LIMITED 1+ FETUSES EXAM: US OB LIMITED 1+ FETUSES HISTORY: Follow up anatomy. COMPARISON: Ob ultrasound 10/26/2024. TECHNIQUE: Two-dimensional transabdominal grayscale ultrasound imaging of the pelvis was performed. FINDINGS: Gestation: Single Presentation: Cephalic Cardiac Activity: 153 beats per minute Amniotic Fluid: Appears adequate ANATOMY Cord vessels: Three Nose/Lips: Unremarkable IMPRESSION: 1. Single, live intrauterine gestation 24 weeks, 1 day by LMP. MONIQUE by LMP is 03/14/2025. 2. Unremarkable three-vessel cord and nose/lips. Interpreted by: Electronically signed by LORENA DE II, MD, PHD at 24-Nov-2024 07:59:26 AM [facility] Normal Not Available Comment on above: Order Comment: US OB INCOMPLETE ANATOMY Estimated Date of Delivery: 03/14/25 Gestational Age as of 11/02/2024: 21w1d Urinalysis macro (dipstick) panel (U)on 11-23-2024 Bilirubin, UA Positive Negative - 4(70) +++ mg/dL [facility] Comment on above: 1+ Blood, UA Positive Negative - 50 Villa/mcL [facility] Comment on above: 2+ Clarity, UA Clear [facility] Color, UA Sarai [facility] Glucose, UA Negative Negative - 1999(110) ++++ mg/dL [facility] Interpretation and review of laboratory results Abnormal [facility] Ketones, UA Negative Negative - 160(16) ++++ mg/dL [facility] Leukocytes, UA Positive Negative - 500+++ Pierre/mcL [facility] Comment on above: 1+ Nitrite, UA Negative Negative - Positive [facility] pH, UA 6 5 - 9 [facility] Protein, UA Positive Negative - 2000(20) ++++ mg/dL [facility] Comment on above: 1+ Spec Grav, UA 1.03 1 - 1.03 [facility] Urobilinogen, UA 0.2 0.2 - 12 mg/dL [facility] UA (CLEAN/CATCH) SERVICE WORKER/ALINE RO IF IND.on 11-19-2024 BILIRUBIN URINE SMALL Abnormal NEGATIVE [facility] BLOOD URINE TRACE-I NEGATIVE [facility] Clarity (U) CLEAR CLEAR [facility] Color (U) YELLOW YELLOW [facility] GLUCOSE URINE UA Negative NEGATIVE mg/dL [facility] Interpretation and review of laboratory results Abnormal [facility] Ketones Ql (U) 15 mg/dL Abnormal NEGATIVE [facility] Leukocyte esterase Test strip Ql (U) Negative NEGATIVE [facility] NITRITE URINE Negative NEGATIVE [facility] pH (U) 5.5 [pH] 5.0 - 9.0 [facility] PROTEIN URINE Negative NEG/TRACE mg/dL [facility] SPECIFIC GRAVITY URINE >=1.030 Abnormal 1.005 - 1.025 [facility] URINE MICROSCOPIC INDICATED YES [facility] UROBILINOGEN URINE 1.0 EU/dL 0.2 - 1.0 EU/dL [facility] AFP, SERUM, OPEN SPINA BIFID Aon 10-28-2024 AFP MOM 1.64 . [facility] AFP VALUE 69.3 ng/mL . [facility] COMMENT: Comment . [facility] Comment on above: Simi Ewing , Ph.D., [facility] Director References: Available Upon Request. Multiples Of Median Cutoffs For AFP Elevations Andre 2.5 Black 2.8 IDD 2.0 Twins 4.5 Abbreviation Definitions IDD - Insulin Dep Diabetes OSBR - Open Spina Bifida Risk For further inquiries contact [facility] at [phone]. This test was developed and its performance characteristics determined by [facility]. It has not been cleared or approved by the Food and Drug Administration. Performed at: [facility] [address] [place], [place] [id number] Patient Transporter: Mahendra Adam [facility], Phone: [phone] GEST. AGE ON COLLECTION DATE 20.1 . weeks [facility] GESTAT. AGE BASED ON Ultrasound . [facility] Comment on above: 17.1 on 10/05/2024 Recalculations are not recommended when gestational dating by LMP and ultrasound are within 10 days. INSULIN DEP DIABETES No . [facility] INTERPRETATION Comment . [facility] Comment on above: Interpretation: Scre en Negative [...] Customer Services to discuss available options. The [employer] recommends amniocentesis be offered to women age 35 and older. [age]QUE [age] [facility] MULTIPLE GESTATION No . [facility] OSBR RISK 1 IN 1894 . [facility] RACE . [facility] RESULTS Report . [facility] TEST RESULTS: Negative . [facility] WEIGHT 251 . lbs [facility] N N ULTRASOUND [id number] 1 17 N 1 Y 251 N N N N N White/ [facility] CA ECHO DOPPLER COMPLETEon 0 10-28-2024 [place] [address] Cardiology Report Signed Patient: LIA DESAI MR#: [id number] : 2000 Acct:[id number] Age/Sex: 24 / F ADM Date: 10/27/24 Loc: CARD Attending Dr: Robert Marrero D.O. Ordering Physician: Robert Marrero D.O. Date of Service: 10/27/24 Procedure(s): CA echo doppler complete Accession Number(s): [id number] cc: Robert Marrero D.O.; Physician,Non-Staff M.DMarisabel Patient Name: LIA DESAI MR#: [id number] : 2000 Exam Date: 10/27/2024 Ordering Doctor: [...] By: APOLLO TENA (more content not included)... [facility] Radiology, Radiologist, MD - 10/28/2024 [place] [address] Cardiology Report Signed Patient: LIA DESAI MR#: [id number] : 2000 Acct:[id number] Age/Sex: 24 / F ADM Date: 10/27/24 Loc: CARD Attending Dr: Robert Marrero D.O. Ordering Physician: Robert Marrero D.O. Date of Service: 10/27/24 Procedure(s): CA echo doppler complete Accession Number(s): [id number] cc: Robert Marrero D.O.; Physician,Non-Staff Nena Patient Name: LIA DESAI MR#: [id number] : 2000 Exam Date: 10/27/2024 Ordering Doctor: [...] TENA Signed By: 10/28/241843 DD/ 42 TD/TT: Scaffold Worker: [facility] Radiology Study observation (narrative) [facility] CA ECHO DOPPLER COMPLETEOrde red By: Radiologist Radiology on 10-28-2024 [facility] Work Phone: ECG 12-LEADon 10-28-2024 [place] [address] Electrocardiograph Report Signed Patient: LIA DESAI MR#: [id number] : 2000 Acct:[id number] Age/Sex: 24 / F ADM Date: 10/27/24 Loc: CARD Attending Dr: Robert Marrero D.O. Ordering Physician: Robert Marrero D.O. 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 Measurements Intervals [place] Rate: 96 P: 41 MD: 104 QRS: 52 QRSD: 86 T: 21 QT: 334 QTc: 424 Interpretive Statements SINUS RHYTHM WITH SHORT MD INTERVAL MINIMAL ST DEPRESSION [0.025+ mV ST DEPRESSION] Abnormal ECG No previous ECG available for comparison Electronically Signed On 10-28-2024 7:03:40 EDT by APOLLO TENA M.D. Dictated By: APOLLO TENA Signed By: 10/28/24 0710/28/24702 DD/ 113 TD/TT: Scaffold Worker: [facility] Radiology, Radiologist, - 10/28/2024 [place] [address] Electrocardiograph Report Signed Patient: LIA DESAI MR#: [id number] : 2000 Acct:[id number] Age/Sex: 24 / F ADM Date: 10/27/24 Loc: CARD Attending Dr: Robert Marrero D.O. Ordering Physician: Robert Marrero D.O. 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 Measurements Intervals [place] Rate: 96 P: 41 MD: 104 QRS: 52 QRSD: 86 T: 21 QT: 334 QTc: 424 Interpretive Statements SINUS RHYTHM WITH SHORT MD INTERVAL MINIMAL ST DEPRESSION [0.025+ mV ST DEPRESSION] Abnormal ECG No previous ECG available for comparison Electronically Signed On 10-28-2024 7:03:40 EDT by APOLLO TENA M.D. Dictated By: APOLLO TENA Signed By: 10/28/24 0710/28/24 07 DD/ 36 TD/TT: Scaffold Worker: [facility] ECG 12[facility]LEADOrdered [facility] on 10-28-2024 [facility] Healthcare Work Phone: ECG 12-LEADon 10-27-2024 Radiology Study observation (narrative) [facility] US OB 14+ WEEKS ANATOMY SCAN on [...] II, MD, PHD at 27-Oct-2024 07:25:37 AM [facility] Normal Not Available Comment on above: Order Comment: US OB ANATOMY SINGLE W US OB CERVICAL LENGTH Estimated Date of Delivery: 03/14/25 Gestational Age as of 10/05/2024: 17w1d Urinalysis macro (dipstick) panel (U)on 10-26-2024 Bilirubin, UA Negative Negative - 4(70) +++ mg/dL [facility] Blood, UA Negative Negative - 50 Villa/mcL [facility] Clarity, UA Clear [facility] Color, UA Yellow [facility] Glucose, UA Negative Negative - 1999(110) ++++ mg/dL [facility] Interpretation and review of laboratory results Normal [facility] Ketones, UA Negative Negative - 160(16) ++++ mg/dL [facility] Leukocytes, UA Negative Negative - 500+++ Pierre/mcL [facility] Nitrite, UA Negative Negative - Positive [facility] pH, UA 6 5 - 9 [facility] Protein, UA Negative Negative - 1999(20) ++++ mg/dL [facility] Spec Grav, UA 1.02 1 - 1.03 [facility] Urobilinogen, UA 1.0 0.2 - 12 mg/dL [facility] Healthcare B-TYPE NATRIURETIC PEPTIDEon 10-15-2024 Natriuretic peptide B (Bld) [Mass/Vol] 5 pg/mL Normal <=100 [facility] Comment on above: Performed By: #### C BCA, CMP, 1987- #### [facility] ([id number]) [address] [place] [address] 99410 CBC WITH AUTO DIFFERENTIALon 10-15-2024 BASOPHILS ABSOLUTE COUNT (10*3/UL) BY AUTOMATED COUNT 0.0 10*3/uL Normal 0.0-0.2 [facility] Comment on above: Performed By: #### 2 106-3 #### [facility] ([id number]) [address] [place] [address] 91029 BASOPHILS RELATIVE PERCENT BY AUTOMATED COUNT 0.2 % Normal [facility] Comment on above: Performed By: #### 2 106-3 #### [facility] ([id number]) [address] [place] [address] 86993 CELLAVISION DIFFERENTIAL TYPE AUTOMATED DIFFERENTIAL Normal [facility] Comment on above: Performed By: #### 2 106-3 #### [facility] ([id number]) [address] [place] [address] 38719 Eosinophils (Bld) [#/Vol] 0.0 10*3/uL Normal 0.0-0.4 [facility] Comment on above: Performed By: #### 2 106-3 #### [facility] ([id number]) [address] [place] [address] 07871 EOSINOPHILS RELATIVE PERCENT BY AUTOMATED COUNT 0.3 % Normal [facility] Comment on above: Performed By: #### 2 106-3 #### [facility] ([id number]) [address] [place] [address] 65872 Erythrocyte distribution width (RBC) [Ratio] 14.1 % Normal 11.5-15 [facility] Comment on above: Performed By: #### 2 106-3 #### [facility] ([id number]) [address] [place] [address] 85423 Hematocrit (Bld) [Volume fraction] 38.7 % Normal 35-47 [facility] Comment on above: Performed By: #### 2 106-3 #### [facility] ([id number]) [address] [place] [address] 25651 Hemoglobin (Bld) [Mass/Vol] 13.0 g/dL Normal 11.7-15.5 [facility] Comment on above: Performed By: #### 2 106-3 #### [facility] ([id number]) [address] [place] [address] 39465 LYMPHOCYTES ABSOLUTE COUNT (10*3/UL) BY AUTOMATED COUNT 2.4 10*3/uL Normal 1.0-3.5 [facility] Comment on above: Performed By: #### 2 106-3 #### [facility] ([id number]) [address] [place] [address] 31410 LYMPHOCYTES RELATIVE PERCENT BY AUTOMATED COUNT 18.3 % Normal [facility] Comment on above: Performed By: #### 2 106-3 #### [facility] ([id number]) [address] [place] [address] 51923 MCH (RBC) [Entitic mass] 27.1 pg Normal 27-34 [facility] Comment on above: Performed By: #### 2 106-3 #### [facility] ([id number]) [address] [place] [address] 08098 MCHC (RBC) [Mass/Vol] 33.7 g/dL Normal 32-36 [facility] Comment on above: Performed By: #### 2 106-3 #### [facility] ([id number]) [address] [place] [address] 77898 MCV (RBC) [Entitic vol] 80 fL Normal 80-100 [facility] Comment on above: Performed By: #### 2 106-3 #### [facility] ([id number]) [address] [place] [address] 74139 MONOCYTES ABSOLUTE COUNT (10*3/UL) BY AUTOMATED COUNT 1.0 10*3/uL High 0.0-0.9 [facility] Comment on above: Performed By: #### 2 106-3 #### [facility] ([id number]) [address] [place] [address] 88683 MONOCYTES RELATIVE PERCENT BY AUTOMATED COUNT 8.0 % Normal [facility] Comment on above: Performed By: #### 2 106-3 #### [facility] ([id number]) [address] [place] [address] 00395 NEUTROPHILS ABSOLUTE COUNT BY AUTOMATED COUNT 9.5 10*3/uL High 1.5-6.6 [facility] Comment on above: Performed By: #### 2 106-3 #### [facility] ([id number]) [address] [place] [address] 57836 NEUTROPHILS RELATIVE PERCENT BY AUTOMATED COUNT 73.2 % Normal [facility] Comment on above: Performed By: #### 2 106-3 #### [facility] ([id number]) [address] [place] [address] 02435 Platelet mean volume (Bld) [Entitic vol] 9.2 fL Normal 7-12 [facility] Comment on above: Performed By: #### 2 106-3 #### [facility] ([id number]) [address] [place] [address] 30091 Platelets (Bld) [#/Vol] 362 10*3/uL Normal 150-450 [facility] Comment on above: Performed By: #### 2 106-3 #### [facility] ([id number]) [address] [place] [address] 20751 RBC COUNT 4.82 X10E12/L Normal 3.8-5.2 [facility] Comment on above: Performed By: #### 2 106-3 #### [facility] ([id number]) [address] [place] [address] 43317 WBC (Bld) [#/Vol] 13.0 10*3/uL High 4-11 [facility] Comment on above: Performed By: #### 2 106-3 #### [facility] ([id number]) [address] [place] [address] 42128 COMPREHENSIVE METABOLIC PANE Alex 10-15-2024 Albumin [Mass/Vol] 3.4 g/dL Normal 3.2-5.3 [facility] Comment on above: Performed By: #### C BCA, CMP, 1987- #### [facility] ([id number]) [address] [place] [address] 31143 ALP [Catalytic activity/Vol] 76 U/L Normal 39-130 [facility] Comment on above: Performed By: #### C [facility]AK [facility], 1986-08 #### [facility] ([id number]) [address] [place] [address] 87922 ALT [Catalytic activity/Vol] 11 U/L Normal <=31 [facility] Comment on above: Performed By: #### C [facility]AK [facility], 1986-08 #### [facility] ([id number]) [address] [place] [address] 59831 Anion gap [Moles/Vol] 11 mmol/L Normal 5-15 [facility] Comment on above: Performed By: #### Shakeel CANCINO [facility], 1986-08 #### [facility] ([id number]) [address] [place] [address] 37010 AST [Catalytic activity/Vol] 17 U/L Normal <=41 [facility] Comment on above: Performed By: #### Shakeel [facility]INO [facility], 1986-08 #### [facility] ([id number]) [address] [place] [address] 65250 Bilirubin [Mass/Vol] 0.7 mg/dL Normal 0.3-1.2 [facility] Comment on above: Performed By: #### Shakeel [facility]INO [facility], 1986-08 #### [facility] ([id number]) [address] [place] [address] 03082 Calcium [Mass/Vol] 9.0 mg/dL Normal 8.5-10.5 [facility] Comment on above: Performed By: #### Shakeel [facility]INO [facility], 1986-08 #### [facility] ([id number]) [address] [place] [address] 73467 Chloride [Moles/Vol] 105 mmol/L Normal 98-109 [facility] Comment on above: Performed By: #### C [facility]AK [facility], 1986-08 #### [facility] ([id number]) [address] [place] [address] 88084 CO2 [Moles/Vol] 21 mmol/L Low 22-32 [facility] Comment on above: Performed By: #### C [facility]AK [facility], 1986-08 #### [facility] ([id number]) [address] [place] [address] 76929 Creatinine [Mass/Vol] 0.71 mg/dL Normal 0.40-1.00 [facility] Comment on above: Result Comment: METH OD TRACEABLE TO IDMS STANDARD Performed By: #### C [facility]AK [facility], 1986-08 #### [facility] ([id number]) [address] [place] [address] 26313 EGFR (CKD-EPI) NON-RACE DEPENDENT >^90 Normal >=60 [facility] Comment on above: Result Comment: eGFR not reported due to non-numeric value for Creatinine. Reported eGFR is based on the CKD-EPI 1 equation that does not use a race coefficient. Performed By: #### C [facility], 1986-08 #### [facility] ([id number]) [address] [place] [address] Glucose [Mass/Vol] 80 mg/dL Normal 65-99 [facility] Comment on above: Performed By: #### Shakeel [facility]CINO [facility], 1986-08 #### [facility] ([id number]) [address] [place] [address]42 Potassium [Moles/Vol] 4.1 mmol/L Normal 3.5-5.0 [facility] Comment on above: Performed By: #### C [facility], 1986-08 #### [facility] ([id number]) [address] [place] [address]7077 Protein [Mass/Vol] 7.1 g/dL Normal 6.0-8.0 [facility] Comment on above: Performed By: #### Shakeel CANCINO [facility], 1986-08 #### [facility] ([id number]) [address] [place] [address] 30411 Sodium [Moles/Vol] 137 mmol/L Normal 134-146 [facility] Comment on above: Performed By: #### Shakeel CANCINO CMP, 1986-08 #### [facility] ([id number]) [address] [place] [address] 44072 Urea nitrogen [Mass/Vol] 6 mg/dL Normal 5-23 [facility] Comment on above: Performed By: #### Shakeel CANCINO CMP, 1986-08 #### [facility] ([id number]) [address] [place] [address] MAGNESIUMon 10-15-2024 Magnesium [Mass/Vol] 2.0 mg/dL Normal 1.8-2.6 [facility] Comment on above: Performed By: #### Shakeel CANCINO CMP, 1986-08 #### [facility] ([id number]) [address] [place] [address]2928 TROP I, HIGH SENSITIVITY 1 H OURon 10-15-2024 TROPONIN I, HIGH SENSITIVITY <^2 Normal <16 [facility] Comment on above: Performed By: #### Shakeel CANCINO [facility]MP, 1986-08 #### [facility] ([id number]) [address] [place] [address] 93214 TROPONIN I, HIGH SENSITIVITY 0 HOURon 10-15-2024 TROPONIN I, HIGH SENSITIVITY <^2 Normal <16 [facility] Comment on above: Performed By: #### Shakeel CANCINO CMP, 1986-08 #### [facility] ([id number]) [address] [place] [address] 14925 IGP,APTIMA HPV,AGE GDLNon AGE GDLN ACOG TESTING Note . [facility] Comment on above: TESTS RESULT FLAG UN ITS REF RANGE LAB Clinician Provided Cytology Information Source.............Cervix No. of containers..01 ThinPrep Vial Age Jerica MAN Marielos... FLAG LEGEND: L-Low Normal,H-High Normal,LL-Alert Low,HH-Alert High <-Panic Low,>-Panic High,A-Abnormal,AA-Critical Abnormal Performed at: 01 =[facility] [address] [facility] [place] [address] Kylee Rivera MD, IGP, RFX APTIMA HPV ASCU Note . [facility] Comment on above: TESTS RESULT FLAG UN ITS REF RANGE LAB DIAGNOSIS: 02 NEGATIVE FOR INTRAEPITHELIAL LESION OR MALIGNANCY. Specimen adequacy: 02 Satisfactory for evaluation. Endocervical and/or squamous metaplastic cells (endocervical component) are present. Performed by: Carri Lennon Change Management Analyst ([facility]) . 02 Note: Note 03 The Pap [...] Low,>-Panic High,A-Abnormal,AA-Critical Abnormal Performed at: 02 [facility] [address] [place] [address] Med Campbell MD, 03 WB [facility] [address] [address] Kylee Rivera MD, Performed at: =G - [facility] [address] [id number] Patient Transporter: Kylee Rivera MD, Phone: [phone] Performed at: [facility] [address] [place] [id number] Patient Transporter: Med Campbell MD, Phone: [phone] SPATULA-ALONE CERVIX [facility] RECURRENT VAGINITIS (HTRX)on 10-06-2024 ATOPOBIUM VAGINAE 0 [facility] ATOPOBIUM VAGINAE Not detected [facility] BVAB 2,3 (BACTERIAL VAGINOSIS ASSOCIATED BACTERIA 2, 3); MOBILUNCUS SPP 0 [facility] BVAB 2,3 (BACTERIAL VAGINOSIS ASSOCIATED BACTERIA 2, 3); MOBILUNCUS SPP Not detected [facility] YANG ALBICANS, PARAPSILOSIS, TROPICALIS 0 [facility] YAGN ALBICANS, PARAPSILOSIS, TROPICALIS Not detected [facility] YANG GLABRATA 0 [facility] YANG GLABRATA Not detected [facility] YANG KRUSEI 0 [facility] YANG KRUSEI Not detected [facility] CHLAMYDIA TRACHOMATIS 0 [facility] CHLAMYDIA TRACHOMATIS Not detected [facility] ERMB, C; MEFA 25.809 Abnormal [facility] ERMB, C; MEFA Detected Abnormal [facility] GARDNERELLA VAGINALIS 29.457 Abnormal [facility] GARDNERELLA VAGINALIS Detected Abnormal [facility] Interpretation and review of laboratory results Abnormal [facility] MEGASPHAERA (TYPES 1, 2) 0 [facility] MEGASPHAERA (TYPES 1, 2) Not detected [facility] MYCOPLASMA GENITALIUM 0 [facility] MYCOPLASMA GENITALIUM Not detected [facility] NEISSERIA GONORRHOEAE 0 [facility] NEISSERIA GONORRHOEAE Not detected [facility] TET B, TET M 26.802 Abnormal [facility] TET B, TET M Detected Abnormal [facility] TRICHOMONAS VAGINALIS 0 [facility] TRICHOMONAS VAGINALIS Not detected [facility] Urinalysis macro (dipstick) panel (U)on 10-05-2024 Bilirubin, UA Positive Negative - 4(70) +++ mg/dL [facility] Comment on above: small Blood, UA Positive Negative - 50 Villa/mcL [facility] Comment on above: trace Clarity, UA Clear [facility] Color, UA Yellow [facility] Glucose, UA Negative Negative - 2000(110) ++++ mg/dL [facility] Interpretation and review of laboratory results Abnormal [facility] Ketones, UA Positive Negative - 160(16) ++++ mg/dL [facility] Comment on above: 15 Leukocytes, UA Negative Negative - 500+++ Pierre/mcL [facility] Nitrite, UA Negative Negative - Positive [facility] pH, UA 6.5 5 - 9 [facility] Protein, UA Positive Negative - 2000(20) ++++ mg/dL [facility] Comment on above: 100 Spec Grav, UA 1.025 1 - 1.03 [facility] Urobilinogen, UA 1.0 0.2 - 12 mg/dL [facility] Coding Summaryon 09-23-2024 Coding Summary HTMLBase 64 RdeptohuRUa5kRh+PGhlY WQ+PO5ZQEPtA64ivPCmxK 2nJ8MSSYhSLnqxWEKNARc SWoBnwgJfTB1qgDNtHTKg IC8+BH3xRXNzBzyvkIBvg 8E0hPZ8Z74zku9eDKsgqN D5ZJKdMoIrxstte3zdtGu 6IDcuNmluOyBt VKVgxO89WQB7eY48Eu59f PCxjLMkn5ygiUr3GbBpUJ ZtHNS0eZdiUDwyi0ZoZLL kN44uuHDga3P2 JMOijVufiJMfTzArdZB9y R4rIPtfhitnn9cbrvwhOf r4tx34gINub9J1eSV7L0H hmyP3MIYprHRk CkxgmTTIjO1zphtoc6pdt ldoPeQcWYNrXTj6SGy8WL TexXuvHhHwWK99JKX2PBV rkqXjJ8RrHPQe zKmfCnY2y7L9Ts2IW7SJQ hmwS6ULCOHXOVpoaHR+PC 14kl31I5CfLywxSyo8YNS cCPN3rKD3gW3b DYCwYGkkl8J0vPM6U7Wov aZjwo4ma5xaZWNaFZyjZ1 4haJBqg6R1NUQytJY7IGY noNieOjEntS79 Oyc+NVElqDldb7FqObobs 5djv4hxjAx0AkrrSQGrum YitRckBEC1s2BjWb0pQFB csNG0pPX7gZ3f FxFnMdL7ULkpP695SfChv ZJpNuabZ96dR3QinTG+PH KyHeq5CBSutQqsHS4jB1J hZGRpbmctbGVm vPgxIQ2qDHZnaopgWZYts Y3tNIJbD9v0HsEhBzF0FF odF6LeMHKqxxhzIg83oP2 iWbPrJjG6QMlp Z0FaefN1AHYdsXOlACwzV RX0W32ui1N1JLBiVNRhPI L6zGS4lE5qhRzpmncxuAS mdDsgdmVydGlj CAdeUUzfK041FZAedKenQ kNvZGluZyBEYXRlOiAgMD YvMTgvMjAyNTwvdGQ+PHR rFUC0fFqaXFWc sIThNVrnXr3syTnxrNhtZ F2kCEHdkdivRZAuiP8xMW AsoRQdzLnvWV0mWNWzvmt cu720PfDuIKG6 NAPlvNZlM3QjyU6mHyOaZ KLrHENlE1BgxNJdYLhnI6 32CYihMwP8XYCluwDkU5X sLWFsaWduOiB0 j9C6Kw8Vt5BxgkjcP0Fqf JEcShBuDfmdJZs6Q9HfJb wvdHI+YN67PLLbCL40VAj 4SVB4tXsxATtk KDXyQ5MdiX4bFgTxRCMjR GRkOyc+PHRhYmxlIHdpZH RoPScxMDAlJyBzdHlsZT0 kIl2jNWYlUEWi uFvdnMEdNmArg0hnWWAcT GcmVC9azKenK4RetSG3EV Nwv4v5Rw86Y47pT6OwjNC +JEQfzCC0vVF9 iT0hWpSvLpS7RKbjV629S aGfdXAqHkqxw6axg0valO u2GlF1YMWfimAjkLjxNUB 1k2BgRb53L54f IHdpZHRoPSIxNSUiIHZhb Dpuot4gsF3iRy4+PGNvbC S2nLU6eG3lJyQxUmR8WUl sG359EsKznIIr Wfhzx6sit2gomHg1DmQaS VOzahTikSadIYX7e3TkNz 02P9FqdXthr0HzOro1pe0 4jHUlk8A0kML4 X4JoAFTidakcfZTcbWljF T2jLJTorhvtPKJbtH0zTF IgL1s8CeFdPsY0ENmwK4D hdyQ1AHKuhVQd PRRqhGHXlU5kirqmq0hyy sfyNvJfUOZqDQd7WNl5WL QveJdhTiSvWOL2BzZ1IUR 9sSKvzH1ouYkx urxjsK8aKln+DKT1bSPrt LFZWI2kZajqwZD+PHRkIH A6cEpnKEdeVLXcrD9pXZT dN7u2OlBxCzP0 EMxsE2RnrzX4XNIwrUXaY NOlwJEWmW7qxtqrd2bahj kxMeMaNKNsXZc1KPc6BDQ saWduOiBsZWZ0 IcT4MCL7fJCpbF3bqLweb sddhO2sOpk+QmlydGggRG I3TCr9R1WqJdb2QRStdNm vUN8rfUWeKQbf Kv3vdQbsqRspRU8nYMYio diad461HoKld9afYXBpoA XiKKquFFH4X75ye7P0MIY wQZSqAQF7qYB6 xP8eqGvjrulqoHQieWdga fMvfWpxJJmjLLaiC415NB ZpcJmrVzCuGPj3F1KqOnl 1GYVwxTonMJ8c kWEnAVgpNg0ruSsviTjbY F1rYQAfcyfea226RpXvz8 izYODqwWCoWGwwEXS9X99 wz2X4IKXuBONl CGH3mVR4qM4niVlznyxnt GVmdDsgdmVydGljYWwtYW bqO997BWKbfJgnTdEmhTk 1O7MnSrv0MGTl uSycJR4bhYRcBSzxVc7kl VzwlEheCM3hROZdglkul7 85YfDwf6ifGZIzjHHzFNn nLGT9B02wk0N7 JJAbSNNlWWV0uDI1lH7ba GlnbjogbGVmdDsgdmVydG sbFHtmJFvpQ407OLMuiDy nPlBhdGllbnQg WNnzIEm6K7PuJzuvxBQ+P Q10LKDoCS35uEHhrLStx4 iyaIn3QhJtGJUxCAQ6hLn cCJnwq7JjCJCg O26sgMXnk2P5CIZglLlpb MClKjLudVJ8xX8hFChuhd tqd2nrxzorLvuwk9txai2 0gG78O06hMWwp ZHRoPSIzMCUiIHZhbGlnb n8seX4zEp4+IUYfkSG9oZ Q1tP6mSFNkQvF8TOawE64 9InRvcCIvPjxj k6rvl5hnzSi6CuO0ALOes mGefHsiQOS4r4PaLo59D8 9sIHdpZHRoPSIyMCUiIHZ wwUymni5xxW3h Ii8+IFHibMA2uOD2zZ0pN zZqHiP9YPobZ127QrMxfW WlOwprY81pS1GnmPB+PHR nPyz0FRJgkUkg JH9ttXPjQXyxPc9hUKS9I jJrExCpKLplR4EzRMDndi rjdzoerIT7XTOiYDPekY5 0Mt6dwQrdKSKn fRKQaK2txpwwx6mzxwutC eCcNKHhQLm6NLy5ZKMyrP tzVcPgQKV5UiX9QST1aFK kdT8pjOfsockt vJ4rI8WaGYQuwuggEo45i V0qFlDtLxL8MZxeTkz+R0 dDVkQGYYzzC3jIBRTNOTk XNN0OYRhxpDT+ PUFeYZX1dYkuFQcdBKUof P8fUBYxY6u3DdZhQpM1QM imQ7BqNXPxwbomGo87oH6 hOsPqTkB4AArg H3SvwoE4SPWwcZVbWBgtJ TD2F44jn7Q6BXMvKWHbLG Z4oLY2iK1liUulpoihxXZ mdDsgdmVydGlj UPobVKhwE557WEVwbVvxM eS9UzXnZxVqAOD2E9TmFd z3YCCxjTixGW4pdTWvIWd hKj9xkMpbgKjk VJ4iKAEoloedXCMtjL0fE HQvrYDluHlvGZ3yDUWmlc idl554ZvCbGBX7BPCzxVP yV1UctF0wAbNa THUwONRvA9WjeWOhDZjuG 767DKlmLmM5EMJxufAqN7 PkCSVzgKriHeQ5l7H8Id8 yMiBZZWFyczwv dGQ+KZKvRDX6dZmjXSrqQ GRubY6eWIDuY8s8NbChZc F6RPoiS0XpOYWnhxfuKa2 6yN2dMzXfYiZ1 HYriF8DirqY2QYOinXKiK LcpXLZ0V49zf8Y8DJZnTJ QrGDU4nAN0rR4bfVgeyxx gbGVmdDsgdmVy uYlkHMdqOFvxU564GLJyj DsnPkZFTUFMRTwvdGQ+PH AcXSU2wNtcKLgfQXAltG5 jLTTvS1o2KeCu HlB3HSdyE9OxJPQqvcwwC m13dQ4qSlLnIaT6UKfnF5 ScwjH9VWPmjQCuGNyoOSI 4J19ss9B4EBVa KNCvDIZ3gIB0hD2liOmiw jogbGVmdDsgdmVydGljYW ydZNksZ819LWNpgEiqUw0 FAV01RD06O4Mn PjwvdGFibGU+PHRhYmxlI HdpZHRoPScxMDAlJyBzdH joWG2iUu0sNDNxWUMngOi qmPHlPeLmq4vy AHOzSVdgWB0kmZwbR4Jve CR7XIMcu7j2Pu44R62bZ8 JvdXA+LMXmxRW6eNM1lE1 aUcHkFnG2GDpy Y563EhVciTVaMbilp4jks 1mkkQf5LaZlGPHcaeBptQ sgVNK2f3BpRt82K43hPIr pZHRoPSIyMCUi XWEliVssxj3ivS3nWf8+P MDitOB8hTX3kP7pXnEjFd J8TAajQ626NpUpfNZhBjg jL08jF2OpkMH+ NCVjNzo6JGUicEidEG4xe UOwJYbnEe4jGHN0OwKpSa PfNCjuW5OjJLRxtkeklcy utIV1UWUyOWSz bQ24Vp0ziIloPs9qYYTuZ IM3QIKihIKaQ0KdrP9xKw CkCFDdVUCfO0HamCKkQQt dX490GKkwYoE9 DWUrhpUiU8QyTVGnxGugF wP9p8U6Pz9PlNypeCFpLL 8cAoLlTGw8E2NqSfa5XDR brHsiBB2kfFSt QWihFv6nfHhkzYcxNP3bH YSvszbpi977SgDvg9tdQX OpgNYrBIrlDBN8H24kp0A 5XMGeLCCqDDE0 rTP7nV4tdHgycguckLLni DsgdmVydGljYWwtYWxpZ2 40TPRldVstIuKMDck9A7N iNcq5NEDzcIlu IS8jcTZdLDzcRf0xnCykr JpbLN0nVVRpjmhis485Na Toj7dnQDEblVUfTTkxKIL 6B18hm0D2DKJn KMFnRSD4bAP4dE9qeMlko jogbGVmdDsgdmVydGljYW apWDrzO414URHybKdiSa0 OFzo5R6HeVey7 YXUcmGrjKN5lpIAzNZxpX o3myWxohQrsXP7sJEQokw wtc779MaMea2lhRVTeyNS dRBkjQUG0V04n s1F7KVNtVMVxLJK2yBI6t U2uhEjqfyfmyLGffAhzsp GcwOtaIAscXYmxJ630RQJ vcDsnPlBheWVy OjwvdGQ+PH93ul02W7OtT iweJck4XAAsUZU5dWU1gA 8yXSXdCTuyh7U4iEG3H3I pyqMsso3tf3my YXB (more content not included)... Normal [facility] POCT Rapid Strepon 5 S. pyogenes Ag IA Ql (Unsp spec) Negative Invalid Interpretation Code [facility] Comment on above: Performed By: #### 9 [id number] #### [facility] (DEFAULT) [address] [place] [address] ALL RUBELLA IGG ABon 025 RUBELLA ANTIBODIES, IGG 1.46 Immune >0.99 index [facility] Comment on above: Non-immune <0.90 Equivocal 0.90 - 0.99 Immune >0.99 Performed at: [facility] Lab[address] [id number] Patient Transporter: Yvan Bolton PhD, Phone: [phone] HCV ANTIBODY RFX TO QUANT PC Duglas 09-08-2024 HCV AB Non-Reactive Non Reactive [facility] INTERPRETATION: Comment . [facility] Comment on above: Not infected with HC V unless early or acute infection is suspected (which may be delayed in an immunocompromised individual), or other evidence exists to indicate HCV infection. No Panel Informationon 09-08 [facility] Urinalysis macro (dipstick) panel (U)on 09-07-2024 Bilirubin, UA Positive Negative - 4(70) +++ mg/dL [facility] Comment on above: small Blood, UA Negative Negative - 50 Villa/mcL [facility] Clarity, UA Clear [facility] Color, UA Yellow [facility] Glucose, UA Negative Negative - 1999(110) ++++ mg/dL [facility] Interpretation and review of laboratory results Abnormal [facility] Ketones, UA Positive Negative - 160(16) ++++ mg/dL [facility] Comment on above: 15mg/dL Leukocytes, UA Trace Negative - 500+++ Pierre/mcL [facility] Nitrite, UA Negative Negative - Positive [facility] pH, UA 7.5 5 - 9 [facility] Protein, UA Positive Negative - 1999(20) ++++ mg/dL [facility] Comment on above: 30mg/dL Spec Grav, UA 1.02 1 - 1.03 [facility] Urobilinogen, UA 2.0 0.2 - 12 mg/dL [facility] Coding Summaryon 08-19-2024 Coding Summary HTMLBase 64 GweoxxmnPPi5uNj+PGhlY WQ+BC2NCSZnU15vrYFgjR 4vR2BUOTnOGvsoKUGHRZt ASkTcwaFiFB3xzPWuLYHf IC8+RP0lZRYtUhsoxSJhf 7E0aOC7Q26wum1aYHvowD N9YRVgFzCqurtdf1norUw 6IDcuNmluOyBt MQGcgP34UQS1fN29Ft51l AHsbRFvz6umsSx2FfMsVJ GzOMA0hJbrLEeno9QcBQF mN83qkJOqb7W9 ZYYhvCscoYSvDdYajYM1y G8pGMjenswmo7oazknoAi v0df85oSObr5S5rNS4B4N bsrL4KHRrwBUt PnbddCMMlM5xaypfm2ikt scoSyElDZKfZPg3UZb2AZ FmnQvzCvNgOG86SFK7IRK wytVwF9MtNAHi eRrsArV3l6M2Db1WF7XLP idyD0XURMUJLWjwuVJ+PC 18jz15A6IuEbnsEvu6DJA fREB5lDJ0xE1p MPSiSTtwc2W5qHQ5Z0Fnw nUvgp7kt9cwKQOsPXyxJ7 7ckMHxm6D1LVNpiUS7VZD pmEqlMlDkfW96 Oyc+ITMjwKpeu3DuXcoek 1jdf2phwWb7PesdJWTmnl QthGhvTJJ4n1EkGa6kFWZ jxVW4iLA4kD5x BxAkWuE3TJwfR449IcDhi BSrDnwfJ10zS5QkpCO+PH RkWab8PFRonBvbCH9fD9Z hZGRpbmctbGVm tUqyNH5jTPKhkkhyLBQfz C6uBBTgJ2i1VbMqTlN7IY otH8GvZSXawhglXd93vB0 cTcCnYtL7KPek D7BvvoH2TPMgcRLcUFupD QO3Z52gh2Y8MOSxOVPwKV T3xKM8gF5aiZvmnreutIU mdDsgdmVydGlj JXpsBAayD613HUKjoTzzS kNvZGluZyBEYXRlOiAgMD UvMTQvMjAyNTwvdGQ+PHR dLYZ8xYzqXCQk tTQnQItjZw4oaAtdoLhgX G1oDOYxijhhJMAftP1gYF JsoFJdqTbfJF9iPNQsaxn qz109VcTtXXQ4 ZMTijWJvW3BljC9xRyXhM AExZEHlS9YnhRTyDChnK9 41GAneOlI8SJPpcxBnO6L sLWFsaWduOiB0 n5K6Qg3Bp1CeardmG8Rfb OCjPnBjZdmiSYy6I5FuGx wvdHI+ML21FUVbMV58TPn 7LKX8lJceXWoa ZXJxZ4FtjT5oAeHbVDCyY GRkOyc+PHRhYmxlIHdpZH RoPScxMDAlJyBzdHlsZT0 bYw9sCXQeQJZr uCfoaINcYzTpz9kvIXGnI MygCH3ehUutM2MoeJN9QY Sda2r7At97Y60iK2UswEQ +KBPufTF6qZO9 qQ1sVpCsHyW9ZErcD711X kStxLEcZzijl9zre1njeD s2DeE1IFExqaBalBskYAA 0b9WsTx03M35p IHdpZHRoPSIxNSUiIHZhb Tgskp5vfR6fKv1+PGNvbC C7fAR7fF4jCaZhTrU4AHh zI927UrIkqKOb Dirlq5qcy7duuYf3OoVfF QHoeuUpsYeiLDS0d6LnEf 31I9QxcZqid8YcUyq1db8 3lACkt8I3fGP3 K2MaLRMurwnnfGRmvNjpW O6jASBblkjyCJWbqP8wWC KeS8f6FzRuYdY8XCojD0X fgxF8PWKyoYMi CESypBVAcV4apwnbs5poe ddvGaDmMMSbCHv2XAa0GH TzqPahMyLzGKV6DtF7WDS 7lDQrfH8rnKeb jgfhiL9fZow+HIO3jHEtv FVVIK7kXzcrpDA+PHRkIH D1uGznELslZRGinY1nORO jK3d7TeRjNcH2 YRhlI5CnzyX6GILixXEcE FGmhTMUqC7rzksuc7abpz ymBxMjMPOdLDt1IGb0BJH saWduOiBsZWZ0 ZuU8MME2wAPyuO0wbBgbs mlwjY9cUob+QmlydGggRG J3RIa0Y2OjHgg3QRBwmEt wPO1zmBFvYIdu Io6mjEtolDlaNW5dWRZua lnmr758ZsSoq4jkCEDwqB IvLJcrWIL2M27ab9H2SMO xDRAiYWF6vGT2 iQ1jnXezmxnedRRbcPuqf lFbgKxfIYxdNOcaB107II YgpBoeYkPhDYi7V0SpDwv 1BYIszWmxHR6t zUIaRXodTt3pdSptbSfoI B2pVJKyjnfpk895EnDzj3 whNZMduTUcYYlkRQK1F42 fz2F1PTBmEQBa ATY6kWU3fR9xcKyptcqli GVmdDsgdmVydGljYWwtYW hqH562SYDmyIusFzBmtGz 2J7XnPrz8QRSh vXdwQN0ioHMnWVxuJh1kw ZttfUayAK3nLYHajzwqz4 26RoZmn8pcVKMzrZWrSCf vFXK2S73dl5V1 NCBeMXCiKNY1lXU6uO3wz GlnbjogbGVmdDsgdmVydG shVUqlCGcgT920LLCfyJe nPlBhdGllbnQg CRuqGSg1I6LoGwkgeZR+P R25ZWJfMU88rODpmKPzb2 vroPh7ZfKfQZLwXHD5eHn aVVlzj0ItRINf L42afBBrv6B1LVCkdXtxb BQwKuPqrXH5nV6rFYbshp usg0kvwwzoUxhmo3eajd8 7pP58V16dKElr ZHRoPSIzMCUiIHZhbGlnb v7rhB6pFt9+JJMrhES3xA C8oH4qJXKhHqV8EQdoV08 9InRvcCIvPjxj b6sub9cdvSx4RyY6VUFua vGfvMzyFDC7d5PeWq64R6 9sIHdpZHRoPSIyMCUiIHZ qpMkuqn2keE2o Ii8+FOBirKX4zTJ8uJ6eI aToPbS3KTsvD874AdPyoO UvFeilK91fD3MneHR+PHR qJra4ZJVygQus DR7nnNPfQLwvUl2xDBB7I zWsNzSaHJbrM3KoRPEwvh rldbzdwWK8EHNkWNVcuE5 1Bl0mzNatXSVs uAUOsE9omkofj9mfurksV eEkNDMoHOa1BKg0AVOrlO vqVgZoOXO8BhJ0DXY5bEH itS9pyOlzsqsp pV0eV5SzBMTbrhofNy98g G2tHcTsSyB4PUcjLrp+R0 eIMyUGHVnpB6xHEXBSWZm URG4KZMjxoPL+ PHUhHCN4tLybWSmpBNZau Y8hCADuG8v1NmIhMmX1TQ uoY9KwNLLprgxwOf39vT8 wVzLhTeS7ZJuu O3ItreR8TMIqwSPaAXabC HF6O12tq1O4LFTsGSBsRF G2aOI0yK4aoOwnmzjzgES mdDsgdmVydGlj OGqrSMvcM766IJYdmPguT zU2GzGiYgIbMNU4F0SaZz k4UTZhrQnnFA8twDKbGBb kRy0waNsmjLux DP2cQYZtiqugDFUvxI3kR HSuyGLeeNmiPB9mKIRisf wwq682IdWcGBI7EUTmbLU cK7UfhA7gCwPp BUMtKXLvN6DcyYRbPUnjN 243WXcqIjK3PTZlsuJpG8 XnSEDuvDtoMaY8k4P3Oc0 yMiBZZWFyczwv dGQ+GXNuKYF6rSwiUWstM EAfoL7wLHOjC6r2FhSbUv V2MQlpH9TiATOvoalsFf6 1tM1jKrBvAhG8 ZAxuO7PeeoW3GSWeiTXdW EptSXX3I55pe1J7OICxKZ GpGLE9xPK2fJ7uhZndqrv gbGVmdDsgdmVy hFgmTEbsULyrY481FSGsf DsnPkZFTUFMRTwvdGQ+PH ReYKU8jZoqSDydKWDxuR9 sRSYqE9h9CaUx OdG3JZlqI8WjHSEycvnaZ d69vJ3aCjYcLrA7XTmvD4 HwjfU4XKAmqMKgLRemNQF 7O62he9A1ULWt HUSbYKS5iWA6mA3qnEvuu jogbGVmdDsgdmVydGljYW gsFLudO217UBWonNqyWbN dIJSyHQ9qsJdx dGQ+BY98lc21S2UhYvxjC wm6DSLpCLU3lRO1fF6cSN XrPMkuz9O3lNH9S7UhgjC qzv8je9hnNMYe FKgpB31hnVLan0C1AGVsl CA3ZRVcrMivMvIztL75Wn c+EHJetMiyv4YwMpmdm1n ok8cujXv5BiQn TQEdauFiyBhbSPU7m5PhC s36A32nWWxbFOQmACYsEG DcNQQfnGzdlt0gkP2nDf9 +SIWsgSO9hZC5 yE7qKeHnAmL7KDohZ566R gKjyWPsYjwht3opp6ofrY u8TaGuYFOoknFhdMyzRQS 5d6AtZs28X5Yh oOvzr3NeAfe6su51aVAvp 9P5rZF0B4KxIFUkarqswY IqkVuhWY3cRVIfsmdgDKN vpU5yMCExE7c7 UcVfEpB4LLstG0OkntC0H HAzhECuGRPjvWMCrK4lsg evm8eofxzaEtScGEUjQYe 5NRt9BYIhgNax AgXdUYA3MmO4YYW8mVIxn A0pjIqmdlffjZ5hFil+UG v2e9iqhWNpFY9cfZS4MN5 2OT37aXYlj3I8 mMX6R1LxAOPbgjmuxwvnw LD9TUPxRCFxjL19Cx2wsI gjOs7oTAXaYOU6IJDdgQY tX6VnuB8lFnHm SPBvHYMvG1PiuHPsQWxwL 095GXoeCmB7XQMmohSsH9 SuOMBfaJduEtT3s5V4Df8 ADR48BP91GG32 xWNlt1Q6yGG7E4GuVJZte hgoqrsqzEF5JRHzSHWuqZ 30Pl1ouVmuDs0bVKOcBVT 1VELwtJJeM4Vp wX4kGmDuAHBoDTGbF7Vrg QVsWEftR634IAweTeY5XF WqlrKfR4LpIMClxKwjQkL 6k3R5Ty8ZPr13 RC31DR76eEPni3J5zMQ0Q 3DlMDWhradjhloyhFO0YO LdTHWmuQ65Nd2fdGsnPt2 mEMOhJKV0TXXc cGHiS8EbhD4vSnTbSXQdS DGhO3BkzTSyMTlmU527QY emHpT9ITTbfaFyR9MbHCT kdJdaXuY1i9B7 Nj9OJSogznb9C9CoJueew HI+AW35CHTeBE56vFDvpS Rud3pzdWy8CbRgNRXbHLV 5cIkfQVnsq0Dk ZXI (more content not included)... Normal [facility] BOX TESTon 08-18-2024 BOX TEST SENT OUT [facility] [address] [facility] BOX[address] 08/18/24 [facility]2024 C Urine Urine Culture ordere d as a result of parameters set on specific urine dip and urine microsopic results. Mixed skin, or urogenital jonny. Clinically insignificant Normal [facility] Comment on above: Performed By: #### 1 [id number], [id number] #### [facility] (DEFAULT) [address] [place] [address] .Auto Diff 1on 08-11-2024 Auto Wasatch % 7 % Normal -12 [facility] Comment on above: Performed By: #### 1 [id number], [id number], [id number] ####[facility] (DEFAULT)[address] [place] [address] Baso Abs# 0.1 x10 Normal 0.0-0.2 [facility] Comment on above: Performed By: #### 1 [id number], [id number], [id number] ####[facility] (DEFAULT)[address] [place] [address] Basophils/100 WBC (Bld) 0.7 % Normal 0.2-2.0 [facility] Comment on above: Performed By: #### 1 [id number], [id number], [id number] ####[facility] (DEFAULT)[address] [place] [address] Eos Abs# 0.0 x10 Normal 0.0-0.4 [facility] Comment on above: Performed By: #### 1 [id number], [id number], [id number], [id number] ####[facility] (DEFAULT)[address] [place] [address] Eosinophils/100 WBC (Bld) 0.4 % Low 0.9-4.0 [facility] Comment on above: Performed By: #### 1 [id number], [id number], [id number], [id number] ####[facility] (DEFAULT)[address] [place] [address] Lymph Abs# 2.5 x10 Normal 1.3-2.9 [facility] Comment on above: Performed By: #### 1 [id number], [id number], [id number] ####[facility] (DEFAULT)[address] [place] [address] Lymphocytes/100 WBC (Bld) 23 % Normal 14-48 [facility] Comment on above: Performed By: #### 1 [id number], [id number], [id number] ####[facility] (DEFAULT)[address] [place] [address] Wasatch Abs# 0.7 x10 Normal 0.0-0.8 [facility] Comment on above: Performed By: #### 1 [id number], [id number], [id number], [id number] ####[facility] (DEFAULT)[address] [place] [address] Neut Abs# 7.3 x10 Normal 1.5-9.2 [facility] Comment on above: Performed By: #### 1 [id number], [id number], [id number], [id number] ####[facility] (DEFAULT)[address] [place] [address] Neutrophils/100 WBC (Bld) 69 % Normal 44-88 [facility] Comment on above: Performed By: #### 1 [id number], [id number], [id number], [id number] ####[facility] (DEFAULT)[address] [place] [address] CBC w/ Auto Diffon 05-06-202 5 Erythrocyte distribution width (RBC) [Ratio] 14.0 % Normal 11.5-15.0 [facility] Comment on above: Performed By: #### 1 [id number], [id number], [id number], [id number] ####[facility] (DEFAULT)[address] [place] [address] Hematocrit (Bld) [Volume fraction] 40.0 % Normal 33.7-40.4 [facility] Comment on above: Performed By: #### 1 [id number], [id number], [id number], [id number] ####[facility] (DEFAULT)[address] [place] [address] Hemoglobin (Bld) [Mass/Vol] 13.4 g/dL Normal 11.3-15.9 [facility] Comment on above: Performed By: #### 1 [id number], [id number], [id number], [id number] ####[facility] (DEFAULT)[address] [place] [address] Man Diff? Auto Invalid Interpretation Code [facility] Comment on above: Performed By: #### 1 [id number], [id number], [id number] ####[facility] (DEFAULT)[address] [place] [address] MCH (RBC) [Entitic mass] 27 pg Normal 24-34 [facility] Comment on above: Performed By: #### 1 [id number], [id number], [id number], [id number] ####[facility] (DEFAULT)[address] [place] [address] MCHC (RBC) [Mass/Vol] 34 g/dL Normal 26-37 [facility] Comment on above: Performed By: #### 1 [id number], [id number], [id number], [id number] ####[facility] (DEFAULT)[address] [place] [address] MCV (RBC) [Entitic vol] 82 fL Normal 81-100 [facility] Comment on above: Performed By: #### 1 [id number], [id number], [id number], [id number] ####[facility] (DEFAULT)[address] [place] [address] Platelet 378 x10 Normal 138-427 [facility] Comment on above: Performed By: #### 1 [id number], [id number], [id number], [id number] ####[facility] (DEFAULT)[address] [place] [address] Platelet mean volume (Bld) [Entitic vol] 8.6 fL Normal 6.3-10.2 [facility] Comment on above: Performed By: #### 1 [id number], [id number], [id number], [id number] ####[facility] (DEFAULT)[address] [place] [address] RBC 4.88 x10 Normal 3.70-5.30 [facility] Comment on above: Performed By: #### 1 [id number], [id number], [id number], [id number] ####[facility] (DEFAULT)[address] [place] [address] WBC 10.7 x10 High 3.5-10.5 [facility] Comment on above: Performed By: #### 1 [id number], [id number], [id number], [id number] ####[facility] (DEFAULT)[address] [place] [address] Standardon 08-11-2024 eGFR Non AA >60 Invalid Interpretation Code [facility] Comment on above: Performed By: #### 1 [id number], [id number], [id number], [id number] ####[facility] (DEFAULT)[address] [place] [address] eGFR AA >60 Invalid Interpretation Code [facility] Comment on above: Performed By: #### 1 [id number], 2369654, 08686691, 5436070 ####[facility] (DEFAULT)[address] [place] [address] Albumin [Mass/Vol] 3.9 g/dL Normal 3.5-5.0 [facility] Comment on above: Performed By: #### 1 [id number], 3201756, 49711098, 6690550 ####[facility] (DEFAULT)[address] [place] [address] 71590 Albumin/Globulin [Mass ratio] 1.0 {ratio} Low 1.4-2.6 [facility] Comment on above: Performed By: #### 1 [id number], 5043388, 46517036, 5171979 ####[facility] (DEFAULT)[address] [place] [address] 62552 Alk Phos 77 IU/L Normal 32-91 [facility] Comment on above: Performed By: #### 1 [id number], 0707370, 42303455, 1670012 ####[facility] (DEFAULT)[address] [place] [address] ALT [Catalytic activity/Vol] 25.0 U/L Normal 14.0-54.0 [facility] Comment on above: Performed By: #### 1 [id number], 9628583, 79383230, 6061582 ####[facility] (DEFAULT)[address] [place] [address] 46799 Anion gap [Moles/Vol] 13.8 mmol/L Normal 5.0-19.0 [facility] Comment on above: Performed By: #### 1 [id number], 4565955, 44534789, 8292357 ####[facility] (DEFAULT)[address] [place] [address] 82922 AST [Catalytic activity/Vol] 21 U/L Normal 15-41 [facility] Comment on above: Performed By: #### 1 [id number], 4660036, 74065089, 3293497 ####[facility] (DEFAULT)[address] [place] [address] 09971 Bili Total 0.7 mg/dL Normal 0.3-1.2 [facility] Comment on above: Performed By: #### 1 [id number], 9415099, 69653227, 3038178 ####[facility] (DEFAULT)[address] [place] [address] 93686 Calcium [Mass/Vol] 9.2 mg/dL Normal 8.9-10.3 [facility] Comment on above: Performed By: #### 1 [id number], 4805038, 40508345, 5926542 ####[facility] (DEFAULT)[address] [place] [address] 00952 Chloride [Moles/Vol] 105 mmol/L Normal 101-111 [facility] Comment on above: Performed By: #### 1 [id number], 6731030, 13130632, 2251904 ####[facility] (DEFAULT)[address] [place] [address] 30402 CO2 [Moles/Vol] 21 mmol/L Normal 21-32 [facility] Comment on above: Performed By: #### 1 [id number], 2652905, 84441155, 5274638 ####[facility] (DEFAULT)[address] [place] [address] 51784 Creatinine [Mass/Vol] 0.55 mg/dL Low 0.60-1.30 [facility] Comment on above: Performed By: #### 1 [id number], 4442187, 97999312, 4276702 ####[facility] (DEFAULT)[address] [place] [address] 76564 Globulin (S) [Mass/Vol] 3.7 g/dL Normal 1.5-4.3 [facility] Comment on above: Performed By: #### 1 [id number], 7626401, 19012132, 9480626 ####[facility] (DEFAULT)[address] [place] [address] 89098 Glucose [Mass/Vol] 92.0 mg/dL Normal 74.0-118.0 [facility] Comment on above: Performed By: #### 1 [id number], 8498152, 23513385, 9836579 ####[facility] (DEFAULT)[address] [place] [address] 14145 Osmolality 270 mOsm/L Invalid Interpretation Code [facility] Comment on above: Performed By: #### 1 [id number], 6269337, 88827445, 2398459 ####[facility] (DEFAULT)[address] [place] [address] 37445 Potassium [Moles/Vol] 3.8 mmol/L Normal 3.6-5.1 [facility] Comment on above: Performed By: #### 1 [id number], 1585745, 08106960, 1640178 ####[facility] (DEFAULT)[address] [place] [address] 09968 Protein [Mass/Vol] 7.6 g/dL Normal 6.5-8.1 [facility] Comment on above: Performed By: #### 1 [id number], 1904479, 60572878, 7784264 ####[facility] (DEFAULT)[address] [place] [address] 65559 Sodium [Moles/Vol] 136.0 mmol/L Normal 136.0-144.0 [facility] Comment on above: Performed By: #### 1 [id number], 6812006, 89466631, 8957409 ####[facility] (DEFAULT)[address] [place] [address] 75102 Urea nitrogen [Mass/Vol] 8 mg/dL Normal 8-26 [facility] Comment on above: Performed By: #### 1 [id number], 7759441, 07206076, 3443484 ####[facility] (DEFAULT)[address] [place] [address] 83066 Urea nitrogen/Creatinine [Mass ratio] 14.5 mg/mg Normal 4.6-16.2 [facility] Comment on above: Performed By: #### 1 [id number], 2722318, 80982477, 7195989 ####[facility] (DEFAULT)[address] [place] [address] 65973 UA Badyr8xw 08-11-2024 UA Bacteria 1+ [facility] Comment on above: Order Comment: Urina lysis Microscopic order added on by Method Expert Rules system. Performed By: #### 1 [id number], 0894905, 24291266 #### [facility] (DEFAULT) [address] [place] [address] 90054 UA RBC 0-2 Normal [facility] Comment on above: Order Comment: Urina lysis Microscopic order added on by Method Expert Rules system. Performed By: #### 1 [id number], 6778954, 06303582 #### [facility] (DEFAULT) [address] [place] [address] UA Squam Epi None Seen Normal [facility] Comment on above: Order Comment: Urina lysis Microscopic order added on by Method Expert Rules system. Performed By: #### 1 [id number], 9069134, 80823450 #### [facility] (DEFAULT) [address] [place] [address] 48426 UA Urothelial Cells Moderate Abnormal None Seen [facility] Comment on above: Order Comment: Urina lysis Microscopic order added on by Discern Expert Rules system. Performed By: #### 1 [id number], 6729577, 76189486 #### [facility] (DEFAULT) [address] [place] [address] UA WBC 0-2 Normal [facility] Comment on above: Order Comment: Urina lysis Microscopic order added on by Method Expert Rules system. Performed By: #### 1 [id number], 4404502, 60497711 #### [facility] (DEFAULT) [address] [place] [address] UA w Culture if Ind Standard on 08-11-2024 Breakpoint UA Normal [facility] Comment on above: Performed By: #### 1 [id number], 9745720, 45457025 #### [facility] (DEFAULT) [address] [place] [address] Color (U) Dark Yellow Normal [facility] Comment on above: Performed By: #### 1 [id number], 0420936, 13495696 #### [facility] (DEFAULT) [address] [place] [address] Culture? Indicated Invalid Interpretation Code [facility] Comment on above: Result Comment: Resu lt created by rule GL_MAGR_ADD_UA_CULT Result created by rule GL_MAGR_ADD_UA_CULT Result created by rule GL_MAGR_ADD_UA_CULT Performed By: #### 1 [id number], 0901666, 09157152 #### [facility] (DEFAULT) [address] [place] [address] Glucose (U) [Mass/Vol] Negative Normal [facility] Comment on above: Performed By: #### 1 [id number], 9111177, 78168730 #### [facility] (DEFAULT) [address] [place] [address] Ketones Ql (U) >=80 Normal [facility] Comment on above: Performed By: #### 1 [id number], 7123847, 38360429 #### [facility] (DEFAULT) [address] [place] [address] Micro? Indicated Invalid Interpretation Code [facility] Comment on above: Result Comment: Resu lt created by rule GL_MAGR_ADD_UA_MICRO Performed By: #### 1 [id number], 5333977, 56100844 #### [facility] (DEFAULT) [address] [place] [address] UA Bilirubin SMALL Abnormal [facility] Comment on above: Performed By: #### 1 [id number], 0667736, 32120690 #### [facility] (DEFAULT) [address] [place] [address] UA Blood Negative Normal [facility] Comment on above: Performed By: #### 1 [id number], 4376131, 13710076 #### [facility] (DEFAULT) [address] [place] [address] UA Clarity CLEAR Normal CLEAR [facility] Comment on above: Performed By: #### 1 [id number], 8244533, 95987169 #### [facility] (DEFAULT) [address] [place] [address] 31900 UA Leuk Est TRACE Abnormal NEGATIVE [facility] Comment on above: Performed By: #### 1 [id number], 2746907, 62826942 #### [facility] (DEFAULT) [address] [place] [address] 59173 UA Nitrite Negative Normal NEGATIVE [facility] Comment on above: Performed By: #### 1 [id number], 2413534, 04840566 #### [facility] (DEFAULT) [address] [place] [address] 66030 UA pH 7.0 Normal 5-8 [facility] Comment on above: Performed By: #### 1 [id number], 9151769, 79402275 #### [facility] (DEFAULT) [address] [place] [address] 97411 UA Protein 30 Abnormal NEGATIVE [facility] Comment on above: Performed By: #### 1 [id number], 5446472, 61689349 #### [facility] (DEFAULT) [address] [place] [address] 05882 UA Spec Grav 1.015 Normal 1.001-1.035 [facility] Comment on above: Performed By: #### 1 [id number], 9395823, 58979105 #### [facility] (DEFAULT) [address] [place] [address] 04688 UA Urobilinogen 4.0 mg/dL Abnormal 0.2-1.0 [facility] Comment on above: Performed By: #### 1 [id number], 9840092, 43089810 #### [facility] (DEFAULT) [address] [place] [address] Urine Source Clean Catch Normal [facility] Comment on above: Performed By: #### 1 [id number], 2499151, 69806993 #### [facility] (DEFAULT) [address] [place] [address] 22953 hCG Quantitativeon 5 hCG Quantitative 758385.0 mIU/mL High 0.0-0.6 [facility] Comment on above: Result Comment: Resu lt Confirmed by Dilution Post-Menopausal Reference Range is: 0.1-11.6 mIU/mL Performed By: #### 1 [id number], 2480550, 99522367, 4445433 ####[facility] (DEFAULT)[address] [place] [address] 60323 HCG ( test) Ql (U)o n 08-06-2024 Interpretation and review of laboratory results Abnormal [facility] Preg Test, Ur Positive Negative [facility] US OB TRANSVAGINALon 025 US OB TRANSVAGINAL TITLE [...] report is generated using voice recognition reporting (Metaversum). On occasion Weevee erroneously drops words from the report or [...] UA Positive Negative - 4(70) +++ mg/dL [facility] Comment on above: small Blood, UA Positive Negative - 50 Villa/mcL [facility] Comment on above: Trace-intact Clarity, UA Clear [facility] Color, UA Yellow [facility] Glucose, UA Negative Negative - 2000(110) ++++ mg/dL [facility] Interpretation and review of laboratory results Abnormal [facility] Ketones, UA Positive Negative - 160(16) ++++ mg/dL [facility] Comment on above: 80mg/dL Leukocytes, UA Trace Negative - 500+++ Pierre/mcL [facility] Nitrite, UA Negative Negative - Positive [facility] pH, UA 6.5 5 - 9 [facility] Protein, UA Positive Negative - 2000(20) ++++ mg/dL [facility] Comment on above: 100mg/dL Spec Grav, UA 1.025 1 - 1.03 [facility] Urobilinogen, UA 1.0 0.2 - 12 mg/dL [facility] CBC WITH AUTO DIFFERENTIALon 08-03-2024 BASOPHILS ABSOLUTE COUNT (10*3/UL) BY AUTOMATED COUNT 0.1 10*3/uL Normal [facility] Comment on above: Performed By: #### 2 106-3 #### [facility] ([id number]) [address] [place] [address] 74113 BASOPHILS RELATIVE PERCENT BY AUTOMATED COUNT 0.7 % Normal [facility] Comment on above: Performed By: #### 2 106-3 #### [facility] ([id number]) [address] [place] [address] 66805 CELLAVISION DIFFERENTIAL TYPE AUTOMATED DIFFERENTIAL Normal [facility] Comment on above: Performed By: #### 2 106-3 #### [facility] ([id number]) [address] [place] [address] 30861 Eosinophils (Bld) [#/Vol] 0.0 10*3/uL Normal [facility] Comment on above: Performed By: #### 2 106-3 #### [facility] ([id number]) [address] [place] [address] 88823 EOSINOPHILS RELATIVE PERCENT BY AUTOMATED COUNT 0.2 % Normal [facility] Comment on above: Performed By: #### 2 106-3 #### [facility] ([id number]) [address] [place] [address] 77940 Erythrocyte distribution width (RBC) [Ratio] 14.2 % Normal 11.5-15 [facility] Comment on above: Performed By: #### 2 106-3 #### [facility] ([id number]) [address] [place] [address] 13084 Hematocrit (Bld) [Volume fraction] 40.0 % Normal 35-47 [facility] Comment on above: Performed By: #### 2 106-3 #### [facility] ([id number]) [address] [place] [address] 92425 Hemoglobin (Bld) [Mass/Vol] 13.4 g/dL Normal 11.7-15.5 [facility] Comment on above: Performed By: #### 2 106-3 #### [facility] ([id number]) [address] [place] [address] 18007 LYMPHOCYTES ABSOLUTE COUNT (10*3/UL) BY AUTOMATED COUNT 2.8 10*3/uL Normal [facility] Comment on above: Performed By: #### 2 106-3 #### [facility] ([id number]) [address] [place] [address] 49165 LYMPHOCYTES RELATIVE PERCENT BY AUTOMATED COUNT 23.8 % Normal [facility] Comment on above: Performed By: #### 2 106-3 #### [facility] ([id number]) [address] [place] [address] 10893 MCH (RBC) [Entitic mass] 27.5 pg Normal 27-34 [facility] Comment on above: Performed By: #### 2 106-3 #### [facility] ([id number]) [address] [place] [address] 63228 MCHC (RBC) [Mass/Vol] 33.5 g/dL Normal 32-36 [facility] Comment on above: Performed By: #### 2 106-3 #### [facility] ([id number]) [address] [place] [address] 83323 MCV (RBC) [Entitic vol] 82 fL Normal 80-100 [facility] Comment on above: Performed By: #### 2 106-3 #### [facility] ([id number]) [address] [place] [address] 19675 MONOCYTES ABSOLUTE COUNT (10*3/UL) BY AUTOMATED COUNT 0.9 10*3/uL Normal [facility] Comment on above: Performed By: #### 2 106-3 #### [facility] ([id number]) [address] [place] [address] 72519 MONOCYTES RELATIVE PERCENT BY AUTOMATED COUNT 7.7 % Normal [facility] Comment on above: Performed By: #### 2 106-3 #### [facility] ([id number]) [address] [place] [address] 72586 NEUTROPHILS ABSOLUTE COUNT BY AUTOMATED COUNT 8.0 10*3/uL Normal [facility] Comment on above: Performed By: #### 2 106-3 #### [facility] ([id number]) [address] [place] [address] 85249 NEUTROPHILS RELATIVE PERCENT BY AUTOMATED COUNT 67.6 % Normal [facility] Comment on above: Performed By: #### 2 106-3 #### [facility] ([id number]) [address] [place] [address] 53480 Platelet mean volume (Bld) [Entitic vol] 9.1 fL Normal 7-12 [facility] Comment on above: Performed By: #### 2 106-3 #### [facility] ([id number]) [address] [place] [address] 35343 Platelets (Bld) [#/Vol] 400 10*3/uL Normal 150-450 [facility] Comment on above: Performed By: #### 2 106-3 #### [facility] ([id number]) [address] [place] [address] 37485 RBC COUNT 4.88 X10E12/L Normal 3.8-5.2 [facility] Comment on above: Performed By: #### 2 106-3 #### [facility] ([id number]) [address] [place] [address] 11814 WBC (Bld) [#/Vol] 11.8 10*3/uL High 4-11 [facility] Comment on above: Performed By: #### 2 106-3 #### [facility] ([id number]) [address] [place] [address] 22597 COMPREHENSIVE METABOLIC PANE Alex 08-03-2024 Albumin [Mass/Vol] 4.2 g/dL Normal 3.2-5.3 [facility] Comment on above: Performed By: #### 2 106-3 #### [facility] ([id number]) [address] [place] [address] 88477 ALP [Catalytic activity/Vol] 90 U/L Normal 39-130 [facility] Comment on above: Performed By: #### 2 106-3 #### [facility] ([id number]) [address] [place] [address] 03356 ALT [Catalytic activity/Vol] 16 U/L Normal <=31 [facility] Comment on above: Result Comment: R-Sp ecimen hemolyzed, results increased Performed By: #### 2 106-3 #### [facility] ([id number]) [address] [place] [address] 23643 Anion gap [Moles/Vol] 9 mmol/L Normal 5-15 [facility] Comment on above: Performed By: #### 2 106-3 #### [facility] ([id number]) [address] [place] [address] 76218 AST [Catalytic activity/Vol] 27 U/L Normal <=41 [facility] Comment on above: Result Comment: R-Sp ecimen hemolyzed, results increased Performed By: #### 2 106-3 #### [facility] ([id number]) [address] [place] [address] 91668 Bilirubin [Mass/Vol] 1.2 mg/dL Normal 0.3-1.2 [facility] Comment on above: Result Comment: R-Re sults questionable due to hemolysis Performed By: #### 2 106-3 #### [facility] ([id number]) [address] [place] [address] 55627 Calcium [Mass/Vol] 9.2 mg/dL Normal 8.5-10.5 [facility] Comment on above: Performed By: #### 2 106-3 #### [facility] ([id number]) [address] [place] [address] 62746 Chloride [Moles/Vol] 103 mmol/L Normal 98-109 [facility] Comment on above: Performed By: #### 2 106-3 #### [facility] ([id number]) [address] [place] [address] 20763 CO2 [Moles/Vol] 22 mmol/L Normal 22-32 [facility] Comment on above: Performed By: #### 2 106-3 #### [facility] ([id number]) [address] [place] [address] 15116 Creatinine [Mass/Vol] 0.70 mg/dL Normal 0.40-1.00 [facility] Comment on above: Result Comment: METH OD TRACEABLE TO IDMS STANDARD Performed By: #### 2 106-3 #### [facility] ([id number]) [address] [place] [address] 37367 EGFR (CKD-EPI) NON-RACE DEPENDENT >^90 Normal >=60 [facility] Comment on above: Result Comment: Repo rted eGFR is based on the CKD-EPI 2020 equation that does not use a race coefficient. Performed By: #### 2 106-3 #### [facility] ([id number]) [address] [place] [address] 33336 Glucose [Mass/Vol] 86 mg/dL Normal 65-99 [facility] Comment on above: Performed By: #### 2 106-3 #### [facility] ([id number]) [address] [place] [address] 78699 Potassium [Moles/Vol] 4.2 mmol/L Normal 3.5-5.0 [facility] Comment on above: Result Comment: R-Sp ecimen hemolyzed, results increased Performed By: #### 2 106-3 #### [facility] ([id number]) [address] [place] [address] 55050 Protein [Mass/Vol] 8.1 g/dL High 6.0-8.0 [facility] Comment on above: Performed By: #### 2 106-3 #### [facility] ([id number]) [address] [place] [address] 23164 Sodium [Moles/Vol] 134 mmol/L Normal 134-146 [facility] Comment on above: Performed By: #### 2 106-3 #### [facility] ([id number]) [address] [place] [address] 23748 Urea nitrogen [Mass/Vol] 9 mg/dL Normal 5-23 [facility] Comment on above: Performed By: #### 2 106-3 #### [facility] ([id number]) [address] [place] [address] [place] [address] ER EXTRA URINEon 08-03-2024 ER EXTRA URINE ERU ER EXTRA URINE Cancelled Normal [facility] Comment on above: Order Comment: A ext ra urine specimen no testing is needed MAGNESIUMon 08-03-2024 Magnesium [Mass/Vol] 2.1 mg/dL Normal 1.8-2.6 [facility] Comment on above: Result Comment: R-Sp ecimen hemolyzed, results increased Performed By: #### 2 106-3 #### [facility] ([id number]) [address] [place] [address] 05608 POCT NURSING URINE MACROSCOP IC UAon 08-03-2024 BILIRUBIN ENHA Small Abnormal Negative [facility] Comment on above: Performed By: #### 2 106-3 #### [facility] ([id number]) [address] [place] [address] 05758 BLOOD/HGB NEHA Small Abnormal Negative [facility] Comment on above: Performed By: #### 2 106-3 #### [facility] ([id number]) [address] [place] [address] 07913 GLUCOSE NEHA Negative Normal Negative [facility] Comment on above: Performed By: #### 2 106-3 #### [facility] ([id number]) [address] [place] [address] 50945 KETONES NEHA 15 mg/dL Abnormal Negative [facility] Comment on above: Performed By: #### 2 106-3 #### [facility] ([id number]) [address] [place] [address] 01361 LEUKOCYTE ESTERASE NEHA Negative Normal Negative [facility] Comment on above: Performed By: #### 2 106-3 #### [facility] ([id number]) [address] [place] [address] 06529 NITRITE NEHA Negative Normal Negative [facility] Comment on above: Performed By: #### 2 106-3 #### [facility] ([id number]) [address] [place] [address] 79651 PH NEHA 7.0 Normal 5.0, 6.0, 6.5, 7.0, 7.5, 8.0, 8.5, 5.5 [facility] Comment on above: Performed By: #### 2 106-3 #### [facility] ([id number]) [address] [place] [address] 06575 PROTEIN NEHA 100 mg/dL Abnormal Negative [facility] Comment on above: Performed By: #### 2 106-3 #### [facility] ([id number]) [address] [place] [address] 50589 SPECIFIC GRAVITY NEHA 1.025 Abnormal (none) [facility] Comment on above: Performed By: #### 2 106-3 #### [facility] ([id number]) [address] [place] [address] 82962 UROBILINOGEN NEHA 1.0 E.U./dL Normal 0.2 E.U./dL , 1.0 E.U./dL [facility] Comment on above: Performed By: #### 2 106-3 #### [facility] ([id number]) [address] [place] [address] 78557 POCT , URINE (NUCG) on 08-03-2024 Beta HCG ( test) Ql (U) Positive Abnormal Negative [facility] Comment on above: Performed By: #### 2 106-3 #### [facility] ([id number]) [address] [place] [address] 75038 US PREG LESS THAN 14 WKS SIN GLEon 08-03-2024 US PREG LESS THAN 14 WKS SINGLE US PREG LESS THAN 14 WKS SINGLE US PREG LESS THAN 14 WKS SINGLE CLINICAL INDICATION: vomiting FINDINGS: limited transabdominal ultrasound of the pelvis. UTERUS AND GESTATIONAL SAC: Intrauterine gestation: Single. Gestational sac: Intrauterine. Yolk sac: 0.3 cm Al[place]-rump length (CRL): 1.6 cm heart motion: 174 [...] Brett Gutierrez on 08/03/2024 12:52 PM Normal [facility] COMPREHENSIVE METABOLIC PANE Alex 07-20-2024 Albumin [Mass/Vol] 4.2 g/dL Normal 3.2-5.3 [facility] Comment on above: Performed By: #### N UM #### [facility] ([id number]) [address] [place] [address] 69083 ALP [Catalytic activity/Vol] 95 U/L Normal 39-130 [facility] Comment on above: Performed By: #### N UM #### [facility] ([id number]) [address] [place] [address] 45091 ALT [Catalytic activity/Vol] 19 U/L Normal 0-31 [facility] Comment on above: Performed By: #### N UM #### [facility] ([id number]) [address] [place] [address] 43878 Anion gap [Moles/Vol] 11 mmol/L Normal 5-15 [facility] Comment on above: Performed By: #### N UM #### [facility] ([id number]) [address] [place] [address] 80516 AST [Catalytic activity/Vol] 19 U/L Normal 0-41 [facility] Comment on above: Performed By: #### N UM #### [facility] ([id number]) [address] [place] [address] 38430 Bilirubin [Mass/Vol] 0.5 mg/dL Normal 0.3-1.2 [facility] Comment on above: Performed By: #### N UM #### [facility] ([id number]) [address] [place] [address] 80790 Calcium [Mass/Vol] 9.2 mg/dL Normal 8.5-10.5 [facility] Comment on above: Performed By: #### N UM #### [facility] ([id number]) [address] [place] [address] 93104 Chloride [Moles/Vol] 104 mmol/L Normal 98-109 [facility] Comment on above: Performed By: #### N UM #### [facility] ([id number]) [address] [place] [address] 14859 CO2 [Moles/Vol] 20 mmol/L Low 22-32 [facility] Comment on above: Performed By: #### N UM #### [facility] ([id number]) [address] [place] [address] 58620 Creatinine [Mass/Vol] 0.68 mg/dL Normal 0.40-1.00 [facility] Comment on above: Result Comment: METH OD TRACEABLE TO IDMS STANDARD Performed By: #### N UM #### [facility] ([id number]) [address] [place] [address] 61615 eGFR (CKD-EPI) NON-RACE DEPENDENT >90 Normal >59 [facility] Comment on above: Result Comment: Reported eGFR is based on the CKD-EPI 2020 equation that does not use a race coefficient. Performed By: #### N UM #### [facility] ([id number]) [address] [place] [address] 67769 Glucose [Mass/Vol] 81 mg/dL Normal 65-99 [facility] Comment on above: Performed By: #### N UM #### [facility] ([id number]) [address] [place] [address] 90783 Potassium [Moles/Vol] 4.7 mmol/L Normal 3.5-5.0 [facility] Comment on above: Performed By: #### N UM #### [facility] ([id number]) [address] [place] [address] 99499 Protein [Mass/Vol] 7.9 g/dL Normal 6.0-8.0 [facility] Comment on above: Performed By: #### N UM #### [facility] ([id number]) [address] [place] [address] 70272 Sodium [Moles/Vol] 135 mmol/L Normal 134-146 [facility] Comment on above: Performed By: #### N UM #### [facility] ([id number]) [address] [place] [address] 85896 Urea nitrogen [Mass/Vol] 10 mg/dL Normal 5-23 [facility] Comment on above: Performed By: #### N UM #### [facility] ([id number]) [address] [place] [address] 62314 HCG ( test) Ql (U)o n 07-20-2024 Beta HCG ( test) Ql (U) Positive Abnormal NEG [facility] Comment on above: Performed By: #### 2 106-3 #### [facility] ([id number]) [address] [place] [address] 97577 HCG.beta subunit IA 3rd IS Q non 07-20-2024 [place] [address] m[IU]/mL Normal P [facility] Comment on above: Result Comment: NEW REFERENCE [...] neoplasms. Performed By: #### N UM #### [facility] ([id number]) [address] [place] [address] 04350 LIPASEon 07-20-2024 Lipase [Catalytic activity/Vol] 31 U/L Normal 17-40 [facility] Comment on above: Performed By: #### N UM #### [facility] ([id number]) [address] [place] [address] 18997 URINE CULTUREon 07-20-2024 Bacteria identified Cx Nom (U) CULTURE RESULTS >100,000 ORGANISMS/ML NORMAL UROGENITAL JONNY Normal [facility] Comment on above: Performed By: #### 2 106-3 #### [facility] ([id number]) [address] [place] [address] 84749 URN MACROSCOPIC NURon 2024 BILIRUBIN NEHA Negative Normal NEG [facility] Comment on above: Performed By: #### N UM #### [facility] ([id number]) [address] [place] [address] 83052 BLOOD/HGB NEHA Negative Normal NEG [facility] Comment on above: Performed By: #### N UM #### [facility] ([id number]) [address] [place] [address] 64711 GLUCOSE NEHA Negative Normal NEG [facility] Comment on above: Performed By: #### N UM #### [facility] ([id number]) [address] [place] [address] [place] [address] KETONES NEHA 15 mg/dL Abnormal NEG [facility] Comment on above: Performed By: #### N UM #### [facility] ([id number]) [address] [place] [address] 10107 LEUKOCYTE ESTERASE NEHA Negative Normal NEG [facility] Comment on above: Performed By: #### N UM #### [facility] ([id number]) [address] [place] [address] 21085 NITRITE NEHA Negative Normal NEG [facility] Comment on above: Performed By: #### N UM #### [facility] ([id number]) [address] [place] [address] 11800 PH NEHA 7.0 Normal 5.0-8.5 [facility] Comment on above: Performed By: #### N UM #### [facility] ([id number]) [address] [place] [address] 55617 PROTEIN NEHA Negative Normal NEG [facility] Comment on above: Performed By: #### N UM #### [facility] ([id number]) [address] [place] [address] 54531 SPECIFIC GRAVITY NEHA 1.020 Normal 1.003-1.035 [facility] Comment on above: Performed By: #### N UM #### [facility] ([id number]) [address] [place] [address] 65138 UROBILINOGEN NEHA 0.2 eu/dL Normal <1.1 [facility] Comment on above: Performed By: #### N UM #### [facility] ([id number]) [address] [place] [address] 62957 TBH PREG QUANT HCGon 025 HCG QUANTITATIVE 59 mIU/mL [facility] Comment on above: 5-50 0.2-1 WEEK 50-500 1-2 WEEKS 100-5,000 2-3 WEEKS 500-10,000 3-4 WEEKS 1,000-50,000 4-5 WEEKS 10,000-100,000 5-6 WEEKS 15,000-200,000 6-8 WEEKS 10,000-100,000 2-3 MONTHS CLINISYNC [facility] TBH PREG QUANT HCGon 025 HCG QUANTITATIVE 22 mIU/mL [facility] Comment on above: 5-50 0.2-1 WEEK 50-500 1-2 WEEKS 100-5,000 2-3 WEEKS 500-10,000 3-4 WEEKS 1,000-50,000 4-5 WEEKS 10,000-100,000 5-6 WEEKS 15,000-200,000 6-8 WEEKS 10,000-100,000 2[facility] [place] Coding Summaryon 06-11-2024 Coding Summary HTMLBase 64 FbszsrttVEm1nUj+PGhlY WQ+MS6ZFNYlN43xpYXpuQ 9bM5KTQEgJAjzoIPZCJWm AEkIwdjHuIE9dyROrFWUc IC8+CR0tPRJoShhwxIBzl 9O0mAP8T15sfb6pJVsotV F2WIYmNkMklnbxd7oixHa 6IDcuNmluOyBt YUCtrY35ZYA1mO02Ez52r HXyfEKfd3pmdYt8XrKbJO XwEAC1rMwuSByzc6XjYWP gS03gzFGcq6N7 RSJplOljtJNaAmCkiTF5g F7dMZjqrdneu2ectfcsIt b8re52tSWub3P9sPP1U9J cqtF0XUWvvOHc GczfzQQXqW2xyylmf1sqo lihSwRcMECzSCz8HAd9DV McsOjmQmZsWA27HFN8SKI zsbEoJ3RcLSQt uPzaWsQ3j9X8Mc0NM2GCO vdaG9QMFVHORJuuzCW+PC 95os23C9CqKqhdZkt3IVD kIKN6qJE7aN2l XIBcFZykn7V6kCS6B2Xlo xGvfs7hl9iiDXWpGQdmO3 3hrMMis3D7ZGFerOU8VVE fzEclZtRjdS59 Oyc+YBEdsMvqe9TvLxclo 9vvw1okvBb2EyblIZZqtc MhdPclAPQ6i7MrIi8nVAM duYH6sAK9vP4h YcOfYaU1GLzgK143KsQcj DAjHblzX84jX7EdaES+PH BfXcf4IWBttGhaRF8qK9A hZGRpbmctbGVm lVrwLI7eFJSkjfogIXOlw V0sMAJbM2n6XrCjJfW6MJ pcJ3NdLZJhrxwxUx71lU0 zCzRcWzB3ANqy F2BoopP4IYCcgDKtVMqhE KX7N82ma9M3XJVxDKXbXP R4iLA2qM8vlAgkxwkmlHS mdDsgdmVydGlj DFbkKMizV841BDGkfScxN kNvZGluZyBEYXRlOiAgMD MvMDYvMjAyNTwvdGQ+PHR rZMV1fOiqDHOj eUNaSZbdCv5jcVbidEecX T3iDQIhjbmpSJIyzA8qMO WzyRApfQhsTA7wQPBxjru eb438IlCqADV2 ZLSasMYxG6TlmE3bZfRgC UNqPWThU6SeoOZcJKqfE7 25DEmxBlS0KGPyfyWjL9Y sLWFsaWduOiB0 k4D2Na4Iz2RwcskfU7Nch HAzTaYhHruqRMo5M5NaXt wvdHI+KP22SZTxTW17RCm 1DXZ8iEqsBTvj NRUwM3WulF2sCoOxUENtB GRkOyc+PHRhYmxlIHdpZH RoPScxMDAlJyBzdHlsZT0 xQx6dTMWuNQLc yEstdVWaMmVyb3rpEDDzM TlpMN3jfIpbZ6NqoLT5KX Ecr2c7Vm53B62lL6WgrXI +BJRspQL8sTO8 eI6oWqPzIhC9XKamE364J xInyYEcThvsb5yzf4ajcJ k3JcQ6FEMkdpCqlCewVNL 4q9NkXq27Q93s IHdpZHRoPSIxNSUiIHZhb Vvnvj9nkV3gTk2+PGNvbC C2ePT9vG2xArKqYjG8QEn uY537OlUvmCEf Zakya5ikq6klrCq7QcCcU EJtmbMdiRfoKWE9m9LuCq 46B8UdzZkuo2DoCio5op7 5lRAlj9Z5hXH0 O4HiWVSthbwlbDNpmYjqO L1rBBPlmptrPVOcbH7rCZ KhW3y9PcGtUmZ1NMfaZ8D juyM8NCMohISh VIByvZNRrH9snzdcm7nnh giiJrXwNHUqAZh3DRf3OL YowZpbTaMvJVZ4XcA7PPF 8bMLhsH5cwNin rozodP6xSay+PMW1nLYfg GWUUS1lFtmqvFU+PHRkIH K5oVmaLTugRMVxiZ7pCEG wQ5q9TuLrBkF3 RAxpU1AnzfY3QIKqqPPgU ADiiSBUqJ8vscwba8jikd tjFnPhUYAzEKy8XAx2DLO saWduOiBsZWZ0 GyH3XDQ3eJTzoJ3gvIgxc gsdhB5kMov+QmlydGggRG L7VAz2Z3QmMhr1BPJmrVz uVV9opFOzSWwj Yp4wrZqtrAnzJY6gIFDeh wfmv559OmBoa9dcMYKxiA SoOUecLHX8G80hf1N4EWG oEJElIWX9aLA3 mT2mmMrwcqexvOHhxVdgu qBboRddTBypPJivI478UY EwvHcjSvZtOBq1Z1ToWnf 6YEHymYkaJP2x wYMjYQphVv6weVtccTxqG Z1nGLBswonnr757CqFvl0 reNVWllCAuIZfvGNL9J81 rm6W3BSMiUCDc ZDE5yTR8vQ8kpUycqmqfr GVmdDsgdmVydGljYWwtYW keR639GNEurFedGzZsbUy 9I1CePys0ABYg sFoaHR2ugNFuIMgbYq6cs ElvhKlaGV1eIUGmzpocz1 46LlEbg0ukGXCpwYGkAPd pLFD9L47yv6A5 IWQfDUZeGGL1oCI6hV1wn GlnbjogbGVmdDsgdmVydG dfCWjdJThdT893NMTarYd nPlBhdGllbnQg WUkcEMn7U6KgFfggyWP+P K61UAOyRY72hGBfgYVlw5 embHr3GqVfUFYaXMC8sTn xEIvkm1AcLFAy E75xeGZow1H9JYYuaFfku FIyZuBneRI9pI5gJNzkza ndd2wbfotdKigvs7xwpo8 8tE93M59sXBcj ZHRoPSIzMCUiIHZhbGlnb j5vqN3dYt6+MGCprVY2aA H1eK2wLGHcBxT1ABnnU27 9InRvcCIvPjxj r6cpg0whzUy8KvK4IXAai fBohGskZXQ0j4PnFq19D3 9sIHdpZHRoPSIyMCUiIHZ rrMeieu9paO2w Ii8+SZTjaHL1sZX4pP9zR pGaIsC3OCvbQ419DaPehH VcMrmdI86lA2NvoNI+PHR xFcu4AGCstMpr IA5zfXXqJYueHk8vCMM7N vIsXrQzJRumJ9MsUWVikl kcbhncdUI1XGEaKNFjhN3 3Gq4smKumLCLa uQBIhH1npfllm4ufrwrqP gLvQVBhLIj2VSq7ZAGgyV quPbMjJRQ5AlO9PUQ2bJW nqE0wvMxlvzbn gC2jT8JjULTrbgguKe78q M5iNpOcLlZ2KVedDsb+R0 xNRfIGJLfwT6rHZWSJOWp IAF0UNXcndOQ+ XSVwLDM9qYdbVOjzJRQed K9bDXKmJ5x2ZzBuQaA5UI uwC2BgMAKnkhpjUi68aY6 kYbWaHiN2JKly F0WgwuD7KPDnzMMrMGybJ IR7F93tj8Q9FILtSXEdMZ A6wIH4jS9riLerfzekrDL mdDsgdmVydGlj KDvrUNddF483AIYfsLfoD gT3PmEpCiRcJMV6C9EnNg s3IDDpkVylFH8qjVZbPYx vDn0tyKwrbEyf RF6hTGSsaosxFVSwqS1pJ APcoGPlbMdsKS9tLFPapo mxc510PzSzGNO1RFIkfGA pM3HagM7aAeDt VWLrRFDnU2FeyMIwOVqfK 189NFxbVvO4FACmolJnF8 MkPZLpeFezSsX2u1H3Jq9 yMiBZZWFyczwv dGQ+WLJoLQL0aBlsDOqgV YElkC0sAZFtS0j3OrOdMx H3VQrqG4UlDXTsmzdgPm8 4uF8tGcPdXjE7 EMbiI2ZmmhN4URTobBNeL WzgWJF9J81ju6V2GBBoCT LxBBY5mBK0gO6plJsftwe gbGVmdDsgdmVy nZveTAaqAFpuD861JYUgu DsnPkZFTUFMRTwvdGQ+PH CgPMW6rCetRBfgPICesU5 yIEKlI4q4AwVb ZpB4SRzhD1OoLRYmjcclX s25kF3yQjWzPuF3HWkqC0 ExnxX1MNAqcILcNKawBXX 7K17uy9A8AOYj ACPtXUQ8lRH2pC9nnFxkc jogbGVmdDsgdmVydGljYW pyYGrjP797HODigImpRrX zKQDcNZ5diNoy dGQ+EU44bm90Z6RbRzolA sb2ZNBmRKM3uUA5nS6cPV BhWIodo1Q3mHM7X1WskkW txe3wn4pyPSSy MYktW10ukLSih8Z3OVZye RG7FDEznVpfBnAefX73Pu c+XHAxxIavy9FoTennt9n rt0wzhVs7LzCn LPKfrtMjcPesISY3a3FoS w35X79xMLvdITMwAKLeIS BuUZZisGucbf6veA5lUa9 +CVIvmIM7pVC0 cZ3mBcRxFiS2HYhqM151L pIgkYIpFozon6sja2blhY x3VfIjKAXkcvHrfTkqEUI 3x1KhRp42O8Dh qZxjd1CoKux6sb43tIFrb 9A4oGU6B9ObTXNalutlmB VxtGgwLQ3vGHBcmbnkBPA ahS3jEERvQ4m7 RlZxPkZ6ENxhA7UfgmM4N JUzcEZfSLAcsNYAqV0kvy yhu1lxinnbTbLeKCJsTIl 2GQg1IXChgGum IyOkUBX5UyJ2HTD9fKGkv O0frXewcxvudZ6sTzy+UG m8e4ciiYFrYI1tfEF5WU4 9QC44wXFxt1Z7 sQR7N2EsFVXbrqdlyuwuw FI1MBYsEBEmnV72Yu9kcY xbTo7gETBkMCO6RRAdnQN jM4VhvC2fHlLh CLNoQPVbT2CzcXCsRCbxE 601NZcqKfG6NMCfyzWcG8 CySDNemWirMjF7o7N4Hy7 LDD85MJ66BA37 mASvk3T2cBH6I6ItBLCzb ambdobkcOR7WQZqYAAryC 03Rh6jzBtqOk6cAOHjJSC 5FMSfhLZaO5Ce gY2rAxZvFVGjILXwW0Fmp BHwAKvzD294QIjuYkY5AD GdiuIyA4NbPPLftQpjOrH 4r5P9Od5ZYz78 IR03GU28lAMmq1L2fLO6O 6WgGEQxyfrnnlxnsAI3MS QiTEGsnO78Lz0cpEdeZf8 nNNAaRYE4LCUq oVCzI4ZitR6uZdEaGMEtH BJwF1VhsRHbFOwxZ726CA ycGyI2JDDvvgRmL0NhPGQ pzHibRiI4i9V8 Aq3UCDdxtsp2E8FhThesd HI+XE10MKIbAD31hQAwcL Knm8uqwMx8ImKtQVYcMHI 0vSzfBGauu2Lq ZXI (more content not included)... Normal [facility] .Auto Diff 06-07-2024 Auto Wasatch % 6 % Normal 12 [facility] Comment on above: Performed By: #### 1 [id number], [id number], [id number], 21953263, [id number], [id number] ####[facility] (DEFAULT)[address] [place] [address] 83772 Baso Abs# 0.0 x10 Normal 0.0-0.2 [facility] Comment on above: Performed By: #### 1 [id number], [id number], 5325998, 43970621, 7432052105, 4566697 ####[facility] (DEFAULT)[address] [place] [address] 43665 Basophils/100 WBC (Bld) 0.6 % Normal 0.2-2.0 [facility] Comment on above: Performed By: #### 1 [id number], [id number], 6031417, 12546253, 3335129427, [id number] ####[facility] (DEFAULT)[address] [place] [address] 47721 Eos Abs# 0.1 x10 Normal 0.0-0.4 [facility] Comment on above: Performed By: #### 1 [id number], [id number], 3109534, 48562060, 3360854283, 2870203 ####[facility] (DEFAULT)[address] [place] [address] 05227 Eosinophils/100 WBC (Bld) 0.8 % Low 0.9-4.0 [facility] Comment on above: Performed By: #### 1 [id number], [id number], 0228359, 62270839, 4875989548, 6851185 ####[facility] (DEFAULT)[address] [place] [address] 32320 Lymph Abs# 2.9 x10 Normal 1.3-2.9 [facility] Comment on above: Performed By: #### 1 [id number], [id number], 8194511, 81237900, 4163134599, 5527769 ####[facility] (DEFAULT)[address] [place] [address] 45199 Lymphocytes/100 WBC (Bld) 36 % Normal 14-48 [facility] Comment on above: Performed By: #### 1 [id number], 1089351338, 2938717, 03516150, 5052154326, 1065407 ####[facility] (DEFAULT)[address] [place] [address] 39131 Wasatch Abs# 0.5 x10 Normal 0.0-0.8 [facility] Comment on above: Performed By: #### 1 [id number], 6657561971, 9396841, 44211595, 8577455550, 4347179 ####[facility] (DEFAULT)[address] [place] [address] 52839 Neut Abs# 4.4 x10 Normal 1.5-9.2 [facility] Comment on above: Performed By: #### 1 [id number], 1794472312, 2292484, 87557329, 0892548368, 5410230 ####[facility] (DEFAULT)[address] [place] [address] 57258 Neutrophils/100 WBC (Bld) 56 % Normal 44-88 [facility] Comment on above: Performed By: #### 1 [id number], 1634789431, 4204037, 72992022, 8031497629, 4371630 ####[facility] (DEFAULT)[address] [place] [address] CBC w/ Auto Diffon 5 Erythrocyte distribution width (RBC) [Ratio] 14.5 % Normal 11.5-15.0 [facility] Comment on above: Performed By: #### 1 [id number], 3245611781, 9678617, 93926063, 8044963420, 0951426 ####[facility] (DEFAULT)[address] [place] [address] Hematocrit (Bld) [Volume fraction] 37.2 % Normal 33.7-40.4 [facility] Comment on above: Performed By: #### 1 [id number], 5102053698, 8175208, 19039226, 5011966414, 7601811 ####[facility] (DEFAULT)[address] [place] [address] Hemoglobin (Bld) [Mass/Vol] 12.3 g/dL Normal 11.3-15.9 [facility] Comment on above: Performed By: #### 1 [id number], 0717228101, 7313575, 08321544, 8151512728, 2173852 ####[facility] (DEFAULT)[address] [place] [address] Man Diff? Auto Invalid Interpretation Code [facility] Comment on above: Performed By: #### 1 [id number], 7028283720, 0402061, 08475399, 2430207607, 0880270 ####[facility] (DEFAULT)[address] [place] [address] MCH (RBC) [Entitic mass] 27 pg Normal 24-34 [facility] Comment on above: Performed By: #### 1 [id number], 6491878981, 2602348, 03088964, 9539523747, 5722197 ####[facility] (DEFAULT)[address] [place] [address] MCHC (RBC) [Mass/Vol] 33 g/dL Normal 26-37 [facility] Comment on above: Performed By: #### 1 [id number], [id number], 6682741, 21078006, 7765954767, 8648622 ####[facility] (DEFAULT)[address] [place] [address] MCV (RBC) [Entitic vol] 82 fL Normal 81-100 [facility] Comment on above: Performed By: #### 1 [id number], 5752572844, 8411162, 89592720, 3640873299, 1206302 ####[facility] (DEFAULT)[address] [place] [address] Platelet 368 x10 Normal 138-427 [facility] Comment on above: Performed By: #### 1 [id number], 6400506685, 6639304, 18550656, 4048564374, 8014640 ####[facility] (DEFAULT)[address] [place] [address] Platelet mean volume (Bld) [Entitic vol] 8.6 fL Normal 6.3-10.2 [facility] Comment on above: Performed By: #### 1 [id number], 3576860985, 6185198, 64650774, 1567949992, 8050775 ####[facility] (DEFAULT)[address] [place] [address] RBC 4.51 x10 Normal 3.70-5.30 [facility] Comment on above: Performed By: #### 1 [id number], 1115251419, 9700894, 97765534, 9053376269, 3454336 ####[facility] (DEFAULT)[address] [place] [address] WBC 7.8 x10 Normal 3.5-10.5 [facility] Comment on above: Performed By: #### 1 [id number], 9268619837, 9802766, 28148770, 6334414747, 2839802 ####[facility] (DEFAULT)[address] [place] [address] CMP Standardon 03-02-2025 eGFR Non AA >60 Invalid Interpretation Code [facility] Comment on above: Performed By: #### 1 [id number], 0242304762, 9991476, 21126160, [id number], 7061136 ####[facility] (DEFAULT)[address] [place] [address] eGFR AA >60 Invalid Interpretation Code [facility] Comment on above: Performed By: #### 1 [id number], [id number], 6080437, 89368662, 2511293450, 2929017 ####[facility] (DEFAULT)[address] [place] [address] Albumin [Mass/Vol] 3.8 g/dL Normal 3.5-5.0 [facility] Comment on above: Performed By: #### 1 [id number], [id number], 5095211, 54696193, [id number], 8606024 ####[facility] (DEFAULT)[address] [place] [address] Albumin/Globulin [Mass ratio] 1.1 {ratio} Low 1.4-2.6 [facility] Comment on above: Performed By: #### 1 [id number], [id number], 3872477, 65863320, 9803536790, 5076991 ####[facility] (DEFAULT)[address] [place] [address] Alk Phos 79 IU/L Normal 32-91 [facility] Comment on above: Performed By: #### 1 [id number], [id number], 3793088, 49811772, 1366075424, 9888867 ####[facility] (DEFAULT)[address] [place] [address] ALT [Catalytic activity/Vol] 21.0 U/L Normal 14.0-54.0 [facility] Comment on above: Performed By: #### 1 [id number], 9906399885, 6694959, 12979297, 5350039486, 6937332 ####[facility] (DEFAULT)[address] [place] [address] Anion gap [Moles/Vol] 3.6 mmol/L Low 5.0-19.0 [facility] Comment on above: Performed By: #### 1 [id number], [id number], 9170553, 88771754, 7244369969, 1534434 ####[facility] (DEFAULT)[address] [place] [address]306 AST [Catalytic activity/Vol] 18 U/L Normal 15-41 [facility] Comment on above: Performed By: #### 1 [id number], [id number], 5857317, 06312044, 5824386009, 9620552 ####[facility] (DEFAULT)[address] [place] [address] Bili Total 0.5 mg/dL Normal 0.3-1.2 [facility] Comment on above: Performed By: #### 1 [id number], 9520795640, 7540432, 72198649, 6367222026, 4511767 ####[facility] (DEFAULT)[address] [place] [address]051 Calcium [Mass/Vol] 8.2 mg/dL Low 8.9-10.3 [facility] Comment on above: Performed By: #### 1 [id number], 4035170249, 6348980, 10368303, 4319641342, 6775373 ####[facility] (DEFAULT)[address] [place] [address]8711 Chloride [Moles/Vol] 113 mmol/L High 101-111 [facility] Comment on above: Performed By: #### 1 [id number], 5363224775, 2340581, 41756657, 4941658610, 3338195 ####[facility] (DEFAULT)[address] [place] [address] 34844 CO2 [Moles/Vol] 24 mmol/L Normal 21-32 [facility] Comment on above: Performed By: #### 1 [id number], 4718005313, 4924767, 40026185, 4402913180, 0033894 ####[facility] (DEFAULT)[address] [place] [address]1802 Creatinine [Mass/Vol] 0.67 mg/dL Normal 0.60-1.30 [facility] Comment on above: Performed By: #### 1 [id number], [id number], 6549574, 05969748, 1904737972, 0825528 ####[facility] (DEFAULT)[address] [place] [address]772 Globulin (S) [Mass/Vol] 3.3 g/dL Normal 1.5-4.3 [facility] Comment on above: Performed By: #### 1 [id number], 3100724280, 4012476, 08699783, 0702777960, 2501817 ####[facility] (DEFAULT)[address] [place] [address]0849 Glucose [Mass/Vol] 92.0 mg/dL Normal 74.0-118.0 [facility] Comment on above: Performed By: #### 1 [id number], 3193234393, 1555318, 04422613, 0673459172, 4057996 ####[facility] (DEFAULT)[address] [place] [address]82 Osmolality 273 mOsm/L Invalid Interpretation Code [facility] Comment on above: Performed By: #### 1 [id number], 0547757329, 1804822, 03459645, 1259467451, 8096093 ####[facility] (DEFAULT)[address] [place] [address] 07462 Potassium [Moles/Vol] 3.6 mmol/L Normal 3.6-5.1 [facility] Comment on above: Performed By: #### 1 [id number], 0966582960, 7802716, 58726299, 3927183202, 1465494 ####[facility] (DEFAULT)[address] [place] [address] 66848 Protein [Mass/Vol] 7.1 g/dL Normal 6.5-8.1 [facility] Comment on above: Performed By: #### 1 [id number], 3905753447, 7216551, 95733839, 7802373055, 9957202 ####[facility] (DEFAULT)[address] [place] [address] Sodium [Moles/Vol] 137.0 mmol/L Normal 136.0-144.0 [facility] Comment on above: Performed By: #### 1 [id number], 7046411309, 7810881, 66491679, 9464980963, 6936712 ####[facility] (DEFAULT)[address] [place] [address] 22728 Urea nitrogen [Mass/Vol] 11 mg/dL Normal 8-26 [facility] Comment on above: Performed By: #### 1 [id number], 0058060242, 3067908, 39897014, 8978229131, 8214642 ####[facility] (DEFAULT)[address] [place] [address] 77235 Urea nitrogen/Creatinine [Mass ratio] 16.4 mg/mg High 4.6-16.2 [facility] Comment on above: Performed By: #### 1 [id number], 4105638496, 1043353, 21205390, 2627217960, 4295470 ####[facility] (DEFAULT)[address] [place] [address] ED Note-Nursingon 06-07-2024 ED Note-Nursing PT. C/O [...] x4. PT. has a steady gait. Normal [facility] Extra Redon 06-07-2024 Tube Collected Yes Invalid Interpretation Code [facility] Comment on above: Performed By: #### 1 [id number], [id number], 8118501, 86190541, 1976157520, 6814329 ####[facility] (DEFAULT)[address] [place] [address] [id number] UA Standardon 06-07-2024 Breakpoint UA Normal [facility] Comment on above: Performed By: #### 1 [id number] #### [facility] (DEFAULT) [address] [place] [address] 23954 Color (U) Yellow Normal [facility] Comment on above: Performed By: #### 1 [id number] #### [facility] (DEFAULT) [address] [place] [address] 42889 Glucose (U) [Mass/Vol] Negative Normal [facility] Comment on above: Performed By: #### 1 [id number] #### [facility] (DEFAULT) [address] [place] [address] 53312 Ketones Ql (U) Negative Normal [facility] Comment on above: Performed By: #### 1 [id number] #### [facility] (DEFAULT) [address] [place] [address] 72426 UA Bilirubin Negative Normal [facility] Comment on above: Performed By: #### 1 [id number] #### [facility] (DEFAULT) [address] [place] [address] 45678 UA Blood MODERATE Abnormal NEGATIVE [facility] Comment on above: Performed By: #### 1 [id number] #### [facility] (DEFAULT) [address] [place] [address] 91605 UA Clarity CLEAR Normal CLEAR [facility] Comment on above: Performed By: #### 1 [id number] #### [facility] (DEFAULT) [address] [place] [address] 19532 UA Leuk Est Negative Normal NEGATIVE [facility] Comment on above: Performed By: #### 1 [id number] #### [facility] (DEFAULT) [address] [place] [address] 65243 UA Nitrite Negative Normal NEGATIVE [facility] Comment on above: Performed By: #### 1 [id number] #### [facility] (DEFAULT) [address] [place] [address] 44611 UA pH 6.0 Normal 5-8 [facility] Comment on above: Performed By: #### 1 [id number] #### [facility] (DEFAULT) [address] [place] [address] UA Protein Negative Normal NEGATIVE [facility] Comment on above: Performed By: #### 1 [id number] #### [facility] (DEFAULT) [address] [place] [address] 07812 UA Spec Grav >=1.030 Normal 1.001-1.035 [facility] Comment on above: Performed By: #### 1 [id number] #### [facility] (DEFAULT) [address] [place] [address] 27753 UA Urobilinogen 0.2 mg/dL Normal 0.2-1.0 [facility] Comment on above: Performed By: #### 1 [id number] #### [facility] (DEFAULT) [address] [place] [address] 30599 Urine Source Clean Catch Normal [facility] Comment on above: Performed By: #### 1 [id number] #### [facility] (DEFAULT) [address] [place] [address] 40964 US 1st Trimesteron 06-07-2024 US 1st Trimester [...] Apolinar Toussaint MD 06/07/24 1:58 pm Technologist: [facility] US Transvaginalon 06-07-2024 US Transvaginal EXAMINATION: [...] Apolinar Toussaint MD 06/07/24 1:58 pm Technologist: [facility] hCG Quantitativeon hCG Quantitative 5.2 mIU/mL High 0.0-0.6 [facility] Comment on above: Result Comment: Post -Menopausal Reference Range is: 0.1-11.6 mIU/mL Performed By: #### 4 [id number] #### [facility] (DEFAULT) [address] [place] [address] Coding Summaryon 06-04-2024 Coding Summary HTMLBase 64 JjqotjseYHk9cSj+PGhlY WQ+TZ4VVTZoS43wnQTdjW 0fE0GOIDkFNyesMMHDBHb OBnZjofXvGI7lwWTsABEz IC8+DF2qHHChPfxzqXUti 8J1xRM2X75aor7uMHsdfW F8BXOpByOxknhve0vqcRa 6IDcuNmluOyBt VZQxvW72YFU5lD53Xa98m LNsiILoa5wjvLy8MtBoEN CyFQL6mFnnRNxja7EiFQT dG84pyBKgm8A0 KUFfaYagrXQuFmCwiRS5n G5tMPfkritae8xcuprkOt s8rv45oMKdo5G3pEM8Z6N zjnO7NAIutZEt XystcQXIyX4dpwzuc0ful incLlGgTJYzXQp8LLo7SK JofRpzBhUtXK86GMS4JJF cxpBqT2AeOJNm hVslHwA3w7O9El4II4GQH aauX3UTKUXQELtckWD+PC 29nj65P4PdKjfdVrf5UIA aSRO2tTO9kZ6t EJWaKGerx9K0xSI9V1Iqy jKwvd2co7ovAALlCDqgP5 1chPDzz0F0BCZmrZJ2HDZ brHntIqNmyG86 Oyc+LRRtnUrbm5ZdSdeec 8qot0kedJu5EbjeLKDzgg BepZlbSCV9t1SiBn6xDXQ pdPV6hKV7hT9x AgEeOsF9TWweZ883AcZki YOmYiwxT82pG0AxzCL+PH HbPbs3IKNyoIkqVL1zF5O hZGRpbmctbGVm mRyhAB2lTNZweqhaTOVoa E9mPOWlE9u7FjIqSjW2MH wxJ0KaMLXxmoqyUo38mQ4 qAmWbWiU1UJip C3DzfpM3EQXyuPUiYOnuB ET7I15xf9R7COXtGHSqWR B8sOY4vY9ccYicclkxrMG mdDsgdmVydGlj IFqmXMyfA446KJSndUffL kNvZGluZyBEYXRlOiAgMD IvMjcvMjAyNTwvdGQ+PHR zMKZ0jZkqSROw aKHzGCiqKh3wcQpkjKhsV A3sWGCncjtwMRGagO9qEW KbpWUjkEopEG8pERWitbt ng889UmSsJFD0 NNUvvIXkI8EayU9uKrMuW EMiVVTkM7KtmBOsSVwqD4 70AUjlCnN0NEVzqoKlL6G sLWFsaWduOiB0 g0H8Og5Se9RhxhwzZ0Vhv ENfEfHbCsahNWe5M8FeLj wvdHI+ZD07EFFqHV21VIb 3CBQ3bQmiAWjo LUFaY8ApmQ4dMmVwMTEqR GRkOyc+PHRhYmxlIHdpZH RoPScxMDAlJyBzdHlsZT0 mFw0bEBZzXHPu eUvuxFImPfKie3ahVEVqR DppQX1vlUnhZ2UmbWU8FW Ugg3r0Bg91N59dM9HjwTP +VSTjjAZ8zOU5 fA6sAaOfHkR4MEmzO169J zYznQZqOvllm4oxl3orhN o7QzG4GTZikjKneJzeNTV 7p3QfDh38L00r IHdpZHRoPSIxNSUiIHZhb Ultac1lpA4uSf7+PGNvbC K1bTB5fW1lTkElZwL0XPr tT142RmUooDNv Prply0hlp8omoYj5PoEbT BLzkrLeaXaxFMF0w8NpXo 50P3XrhOjst4KdUec7ec3 0bAYdf1F3mVN4 Y1KbJRPqjnpgtHHbbXiwT S3gTQHtgfwvRIIgoP8sVG CjI8j1FxWrOvC1LSsnK0Q ksqH7FTDcxDIk ELCvnUMAiJ4vndknb3hdm xosAgCjYYWgKLj9OJn7UG ReuAbxDzHoDBG4BdL6OLT 1oSUveL6czBox avvneG2iEfx+FOZ5hJLne FAGTD6iTpojvHU+PHRkIH H8dBofTIbpLPBssF0tRXQ oO4z8KsNwToX7 JGuyG1ElncZ7GMQrfERlQ PZgeVPJkY7vchsbt9itlx kuDiKzIEDqSTn1FSr2ORR saWduOiBsZWZ0 AfJ2AAL7dIDgvX6tiZjrw synlK5bPyb+QmlydGggRG B0NJd5Q2WiThi9AGHocWs uXU7ulSWnSRzv Uf5gfBbneAtiNZ6aCGKtb cjkl026RmXxi8riAYXbeJ NcGCxfNJT5M46ng2N2JUD kPEEaJRK0jWQ8 aN6rqRpeoijzrDLlbKgid gSkaZqhVCvqWGilP516OG KyvKsyWtJhDLr2N3FzGfk 7AXXgePomBD5o yOYmGWyoUo2yuBqaaSmxK O8kZPKsgitqi167RuArw2 lmADIruBFhMIawAED6F90 rx8F8MPXeTQCd ATY6tBA8pC7jtJrtxmwrh GVmdDsgdmVydGljYWwtYW uzR180JYFbzMoiIbQmmOw 9S2WcWaz8EQOt fAnoIF6mgXFnAIuvXr1zm YidvSatIS3uZLUobleeu0 72VoQjs0ukYZQkcCSkAPx rNUH3S06mt9N8 PHQvUOFnMWN5hBZ7qM9ix GlnbjogbGVmdDsgdmVydG foKQdjQEziT244FDFzbJv nPlBhdGllbnQg CBfcTBh6L1UfOljypKH+P M41KFFlNK33zUGalEQiy7 xlwCk8GeNoTZNdRVX7rXp rAGpzl5BrNQVo X84cbKYpn1R6VEZroPfpm TDkAcTvwKS9lM2sIXhpbv pyd8bqogxbYgbzi1swhi5 4jX29F53zCUqy ZHRoPSIzMCUiIHZhbGlnb a8ylQ9zVf9+CUFlaUC6jD A0zQ3eLQBkOjT0MAzgR47 9InRvcCIvPjxj r6pqt9shfBb9GaO6EBLxt oCmiQxlAFM5m7IrPw76D1 9sIHdpZHRoPSIyMCUiIHZ kpMhigh7suX3o Ii8+IBAqvGQ9qNY8mY6jD mQwUeV2ASheK678JnCwyZ SoYyagT85aU3PccGS+PHR cPyo5LIBkqApd TK4rpRAaNKxiAk3pTXJ9I xLcEdFfPXurK3OiITLwot spgptxhPH2TFAsLERhsV3 7Xt8qhDcwXTZn qSLEiG3nfwpzd3hlmwqhP zZfOIVkIJb8RVn2LPEapB thYtEyZNV0KeJ5FVU8mSB heS7esPzwszbb qG2pL7NmYSMcmkglXh53l H4eBhQoJcY1EEbmTlb+R0 cMUbIPAVjeP1rMBXHEGSh XSZ1VSDxkpSU+ EDLiNZY8uKlbVGcaQLZnr M5mJECiK7j9XkZfXtC3ZI fkF3AlUULfraufSv07xX0 iYwItBzY3NEgu Z0GxvuV1JXQgyCMaHIjiZ LV8I38zv9Q7WCSzBMTvKL N9zVM9sN4cpAuiepqdjZY mdDsgdmVydGlj KCzmTEprW127RAYqqQwpD yS9QtRzJcHnFCD1Y6JySu f7DUAjfHvfQA1huRLvJYa lXu8waVioaNsq UH1vCBIwiftgWBPctG7jA XNmsJLfyNytBK3qKOMrub xjp266DbVnLNU4JYCktCJ gV1PccZ6kTsWk KBFrDSBiM2MchOGrHHkoG 287BUprZiS5KSIkhiGpO1 JdHZXdpGitYcH8z4N6Fm5 yMiBZZWFyczwv dGQ+FNGvGHQ1iJmmXEixM AOqdD5dEKJbZ3s4XuLsQy G8EQciI1SaORDzuuosRv8 0aW5jLiRhBqG5 BHfsC9RgbqR4PELsiVPhK XjjBMC3F27nd4P2SJInXQ HhYID2qUO1aS8lqJdbowa gbGVmdDsgdmVy wCjjWQinMHbyA124LQKmv DsnPkZFTUFMRTwvdGQ+PH MmZGU3qNfmHPuhUOCslD7 bSNHvI4e3NrLp MkQ8TSjsM6UlWUTiubudL a77eZ5oNrLcZqW6BEbfG2 GnbgT5EQWhsYTiTAvcBZQ 5J13gg0B4MSYb QVRaSZM5vZM4rX3egYjwv jogbGVmdDsgdmVydGljYW gpTRsqW989CLVdkWxzIg0 PJT22JO72W8Xc PjwvdGFibGU+PHRhYmxlI HdpZHRoPScxMDAlJyBzdH izVG6aOu0nAOKnCEGykMc ahEKtPiRrf5qx LGOxSRcgQU7xmAxyY8Sbu ZH1FCCyo1h0Ld44G61pW4 JvdXA+XCQctJP6zEN0pF5 hLfGmQvU8NRhc V760IzJkxLKyMrfjb4epn 1fztUx3QtAhGQLvclCtwA nkJLJ5b0CbPg71W21wQOa pZHRoPSIyMCUi CRIfvFertv6xoN9qEz4+P OYsvCE7uLW2rY3pWeYoCb U6USlsX461ZnUwyMFiVxs sX26aG2UprUB+ CTDaXfc4SZWhbVwmXK1ma DHsPXluNn1jLKU0JrHdVv JcDJtbJ6XzIJXarntedoa erUL6TLLoYXQk bE93Gu6ezMkkOh5hLXNlP IC3KGCxqQAaU5ZvlA4bGi YfTXFtCNNlS0ForUWyANb tD904HVniAuE0 WAOcsbJsC1GbCKMjhKyvJ eR2s8C9Px5IqXmffLZtEH 4iYnSeKMu4A2CvSvr1RPI ctXiaVY7jnYAk BPabNd4ebTozqFtaSF3fX IJddtvll909NuXqr4jmTR FjsZVmIRlnDUD0L14se9I 2CDOpDCDzTOD2 pKJ5eR8gvDyabvaboMFbh DsgdmVydGljYWwtYWxpZ2 38LCQhfHscAvPVMco3A5L yUfn4QFJqdGkf FX4kwEVwZIuyUl4ifFmqy ZxbVK5wNVHroyvsf667De Gpw0etABIrgPPsKMpkPUU 1L80uk1M5LGJo FHMgJUL2kTC0hS0jfTheb jogbGVmdDsgdmVydGljYW zkFCblU746UIGbaIyiMn5 VCay0G7XcQuu4 BQHutZsmQD0kvAPnEObjK o7cgAxbiMtnJA7gZMObnk yqu236MnBva5cuXXHynVY bDFiaFTV3E92j x8U5DZVeRLReVDC8rNK5a J2evMaumspkmPMvbVzmhb YcmBgiCBdySPhdX169KDY vcDsnPlBheWVy OjwvdGQ+CL33ul16N6NzH bvaLmn4GVRdFWI9kTB8fX 5jYQQwWQohh7O5eFK3W7F ljmOudj5od6yo YXB (more content not included)... [facility] Coding Summary HTMLBase 64 RatihsciDCm1zYn+PGhlY WQ+EK0NMWPkD17ktGZibC 0qD1ISPLfCCwjhJKLNESm SPjOwsjEhUS9paGItBCAd IC8+RL4uEAYzCpjxzTFnu 9M8jXW3W36fwc8fXZpjsK Z9UXAsQzBumkybw3zapWy 6IDcuNmluOyBt XCNzsH90UAY6fC20Mz36u TCnzDKfz4kfaSt2OuDtNQ MnASA2fWceERqpy5WbBGX zF86leAUvk6V0 PITmwRrjcBDlSbYluAM1l P8fLMpdmqfay3zyxiaiWm q7yb75fIKyr7B1vZJ4M6L wpaY5WPBimTCd LcasvGQSsY2gtpvcc3rop wtcTlVeAALcNLp9GPl4TM CcvUltVlNaIR07SHL5OSH dkfQfW2BrRLBe pFwkFkB5t1Z3Cu1PL6TNT xydR7TGRXCJZVnfvYR+PC 56zg70F3SeQsmvZmm6VFB xKIY6aYW2jE1u KIZyIAdvf9Q1tOW4L8Frl zZzhq3sd7jkONMyRYyeW5 9ccIQpi6W1RMPyaJJ1KZP cwHfvOxUsbE26 Oyc+LGWvdPjar9LzSngro 8pxk5ckyGk9RhavJAZcay YbcKrfVGD8z5ZgPj9uSZL xbFH5gDI3gY2s QhEpDkC6BQhjN550WnWez CFgAikjJ75cX2EvdLP+PH AqJjm0VNOmiGrnQD5cN5R hZGRpbmctbGVm yOerXB4lHKTwibxoNEWff C1pPBGoP3x6JkMcZxK6RV tgN0LwQPSbkapoAo38uZ1 dWrJmEbM8AVws A4HxsuD3QJFkfCMpXTeuO EZ4B98os5H4ALQrIJIhZC Z1xNM6uA2znNxjkantuKR mdDsgdmVydGlj XFwcUOyiF597KAYsgYcpS kNvZGluZyBEYXRlOiAgMD IvMjcvMjAyNTwvdGQ+PHR fBZL2bUcoFCFe eTRuAPoqEp2lbTwywUfkW K8xKMPqzakzRCRyqT7zVP NzvTVmgBhzYK1oAYAhnps ta588LgYmLAA6 KVAixOLcX7SuuI7pAvZhR ODrXSCvH3KusNWsOIxmD3 21YCbtYxV5AKMjdjTdV6R sLWFsaWduOiB0 p5Q7Ss7Mj5ElydqjN8Tcp RHwEuAxKcsvNLz1A7AiCz wvdHI+EZ83EGUdSH35QQs 6IPN3vNkrDZcz RCFlM0BsqH9pUiRiHDQvA GRkOyc+PHRhYmxlIHdpZH RoPScxMDAlJyBzdHlsZT0 aJb5vUTWqPMBs aAoglGKqThQkb4uhJNQaE VcnRY9cpTmzG6EfeWP1LD Pmf5b2Qs82L67mS4MfoPZ +TSPrbWI6cND9 cR5hJeFdKfK9YAvvL404J pZwmHPpCzxkg7iuw4fznA f6EcY9AHLnzuIjfBisYVP 0b1GbQk19W97x IHdpZHRoPSIxNSUiIHZhb Vejop6piT3lEb0+PGNvbC Z3hJJ9uN1mJvPbFeT4FGj mI346VmOzwTHg Xhpom3tnf8myiBz2MyDhN SUiygHwwPxxUEE8k5JxGv 75Q2DxsCewx3ZvKjv8iq8 8cILhs5S2fOC3 M8YnPJEarrkbxEFhcMnuZ R6uRKJnpwpfCUKlzH7oPR VdU1t5RhVmGnV0WBaxB7B xuvW5NXJxtPFi TDVekTPQyD4repobi0hdi soiVbIiELOhOOh1YBt0JT XvmPsoPjGtWIN7HmG5VYE 2iWMwxD1xmXrk zjndyI5mHvc+TRS0iIDho RJNHF4dClocsTY+PHRkIH Y3rLahTKtaPJHhtT6aJJI sV4t3GbTlAyJ4 ZXhpN7QzfqH3PDYmiXWpG NGoyYRTnL0haexwr7gzkn byKqFzUVOzGVm7NZk9UKW saWduOiBsZWZ0 CsP5BAR7zDLydY8abAlxr dakqE6nMid+QmlydGggRG Q4UDb2T8BhLdg0MYIetCk hOA6qsPCcMIom Wz1bpThozKbqJC4vCKDwu pqmh371VhScr6usFXRexO VuPUfkOVI1U48cp2K2CFN fCDKuZBQ4fOA0 yC1wgQdrlyqhwDLheZbor sXkoAbdYCwoTRxoB502KJ JwrKwaEjOsEMw2H6XbZnl 6GKUqdRzvJP7i dBAxWXjvTj6geOyffStbX I5iWTNoxouji399VfYfh2 utASFesYEiPZfcAFH5X95 dp3F7DQKmXZCg FZF0kOB9rU0qkLcjyxjdi GVmdDsgdmVydGljYWwtYW xmH441MBGvoDnbOtXukHq 1Q8NgCwk5SKYu cAvwRO7pkVSvBFpaHr4ax YwtjKmxQI9mCKUnmjwja9 69ViMau9nlEDMoeJNzKJk eZBR6P46xo6G6 AOJkPLXfZUK8rIH3bX7ol GlnbjogbGVmdDsgdmVydG blNNunAYdrN547RTZdaZk nPlBhdGllbnQg JJwuDTc5P5AiDjnexFF+P J54UTHjHE36eWFmpZKiy9 nnjBw7MbTpIJNwRNW1wJp zLHvxs3NiXZKs T55pxYTtc8K4GPAxmHmyl VFiLyYjqJD7qL3kLOvvef bqb4fsndfvYhztk7hssh9 3wU23Z38eNPnr ZHRoPSIzMCUiIHZhbGlnb r3yiN0rUe1+UYTjcXM5sM N2iG8lGAFpViA7KHmmW75 9InRvcCIvPjxj w2evk3taiVw5SpY8XUIox cLnzRdtICI5o2GoMc05Y3 9sIHdpZHRoPSIyMCUiIHZ zaNqsrx9flS0g Ii8+LCDyqEU9mWQ0qF6bO bIeRuB2JQzjA394EbAvsI OlSgxoP54tK7AgzYZ+PHR xMrr3NVQvcFzs RN1nrFHeYMdfHq3yMIT7V hEgAlJoBWcwO3PrIBNykv xcxougnOK3HZDfOQLhbX9 5Nm6qgPmeTYBa wJGZnL6eutnwl6ibxvsyX dGvKQUdVZo3XFd9KCUstT khWzAmVST5QbR1PRN3vZP pfI5teJkzbhxp aP7cD3WeMJOyuxqeXq68y C8sIbBaKlV5OTtdIry+R0 zCIvHJLMarG4gOPSSHTUw CIG1VQOkgbMU+ DPCcLYS7oLlfUHpuLGKor X7pEERjA0n3KtGjEwE4YP mgP0HtVUIpuqypFp31kQ9 eWnOhRaQ9VDsr Z8VgtmV4TMYevFDhKWhrC HG5V71wl0G0DILwTMLbDV C3nZS9aT0geHojwegdyMY mdDsgdmVydGlj USopJDkiG794AQUstWqnQ vI3YjAtPgKxPTJ3V3XdGp z5KSXkkYrgHM4mrSMiDVn iSg8fuHivkEjo LR4fCEKpgqisJVMicA5jY EJckQZvjKqcLI9iCWPyoi bve637KpZoRFH6IJTtcEF dV8FxyE5wPuLd JKLeBVXrR7VzoSRhQRnaS 247HUkiNeA1DJTzzvEhR2 QaCKTrwPguHuG3x6U6Xy7 yMiBZZWFyczwv dGQ+XATqJWG2qTbvOTeaV ZRyvV6cOOCkU4w2ZnOnOb G8SUtuK6BtQDSjyojaRw8 0hU1qEtHfHoV2 SIdcS0BqomX7DORonGWrI MntZEO5M38kc5D6AYRzGN SoOIQ3hRS2jS3rfOtuves gbGVmdDsgdmVy iHgjGFibDOwmU272XPIbe DsnPkZFTUFMRTwvdGQ+PH NmYNJ5uGfoLMzaSNMjaQ2 qWCVtC6r6UkZf BcW4EUaeZ4AfCIFelrqaJ o53hA0fDhJeIfY4SWeuE0 KvsxR9SXBzxJSrNBifXAS 8K87df8I1ECJr RFQeBMD6gTJ4zT0zsPkmx jogbGVmdDsgdmVydGljYW mgUUerS933JKAeuHerWsG pV7AdlkkbFiYC cELbPVXcCM80VB43GG82M 3RyPjwvdGFibGU+PHRhYm xlIHdpZHRoPScxMDAlJyB obGvwED7fIi3d ZGVyLWNvbGxhcHNlOiBjb 1rnTKLoHApzFM2pdZobY0 RthKG5AGAql5o1Sk81W96 iI9HkxYZ+PGNv sNK1sVB1bV1aHyRgPnW1Z IwpW130PfYrzIQaAdbgm7 wlr9zfjBr2TmIsRKHvndT xuAixTSS5b1Xi Mr33N13qYSiyHOIaCTTmQ VKpJUBqmKsmod3fsY1aZa 8+ZTDnyAY8oHV3nE2iJzG kRrQ4UBjsR012 XxGvqRQsNcnjY77sR6Ynk XA+PMGjUul7PGNdqRfpSZ 5spDLzMNwdAj7hAFI8JmO xZzCzWLbpB4Zs OKLugdgdkgrpvDQ5TCYtY VMntL95Uh5miEdkFv6wEN RiPHF8VHMwaKGoY9AqnC3 yOiAjMDAwMDAw T2UmeGLlULuxH416SFmrT mG9BCIyyaApN6JpRDJanM iuKeL4a5X2Mf9IlJphsPM bVR6bBiRsIFv2 H5PjEcu0TPSicXukHZ6um TLuQWjiCn1xzMlrsIjfEH 2oLYUxtcayq380FeZoz3i kIDEwcHQgVGlt GBQ9Q85sr0Z4SPEvCCJtM DM8dWF6pI7szVbvyzqcrT VmdDsgdmVydGljYWwtYWx bV759XORuyDre JaOVZox6A0CeFzc0UHOja JmiMA3qmEBwUDsfRc5imK vfjUcjNV6yQVRphboix72 0JfWjy1xrJEFo jIKvRKbeDFE8H45yn3G8M BUlXJYfIZL9pHX5lZ1wxG lnbjogbGVmdDsgdmVydGl nOOefXJksM571 XJGnbExsDj4IPjc3P6HnM ei8PHApqHosMF8ytDKyPK nqQe1hvRswjKidLA0dQPJ ppztoo225UuJh h5qoKCBjxWFtTBnaBRJ1T 47cq6F6KOQyWSTnUZT2yX B4oP9qeRtrafevzOKcoUi gdmVydGljYWwt KNuaX427XOBsjYcnSvYzd WVyOjwvdGQ+AV83pq31Y5 PsUgpkYpj8HGXyJKU2cLV 6nM7lTISkJFgn c3R (more content not included)... Normal [facility] Provider Orderson 06-03-2024 Provider Orders [id number]#1 .00OTGTIFF [facility] hCG Quantitativeon 5 hCG Quantitative 98.7 mIU/mL High 0.0-0.6 [facility] Comment on above: Result Comment: Post -Menopausal Reference Range is: 0.1-11.6 mIU/mL Performed By: #### [id number] #### [facility] (DEFAULT) [address] [place] [address] 14088 Provider Orderson 06-01-2024 Provider Orders [id number]# 1.00OTGTIFF [facility] hCG Quantitativeon 5 hCG Quantitative 366.4 mIU/mL High 0.0-0.6 [facility] Comment on above: Result Comment: Post -Menopausal Reference Range is: 0.1-11.6 mIU/mL Performed By: #### [id number] ####[facility] (DEFAULT)[address] [place] [address] 91398 BASIC METABOLIC PANLon 05-30 Anion gap [Moles/Vol] 8 mmol/L Normal 5-15 [facility] Comment on above: Performed By: #### N UM #### [facility] ([id number]) [address] [place] [address] 58869 Calcium [Mass/Vol] 8.9 mg/dL Normal 8.5-10.5 [facility] Comment on above: Performed By: #### N UM #### [facility] ([id number]) [address] [place] [address] 71919 Chloride [Moles/Vol] 108 mmol/L Normal 98-109 [facility] Comment on above: Performed By: #### N UM #### [facility] ([id number]) [address] [place] [address] 96562 CO2 [Moles/Vol] 21 mmol/L Low 22-32 [facility] Comment on above: Performed By: #### N UM #### [facility] ([id number]) [address] [place] [address] 09383 Creatinine [Mass/Vol] 0.60 mg/dL Normal 0.40-1.00 [facility] Comment on above: Result Comment: METH OD TRACEABLE TO IDMS STANDARD Performed By: #### N UM #### [facility] ([id number]) [address] [place] [address] 64255 eGFR (CKD-EPI) NON-RACE DEPENDENT >90 Normal >59 [facility] Comment on above: Result Comment: Reported eGFR is based on the CKD-EPI 2021 equation that does not use a race coefficient. Performed By: #### N UM #### [facility] ([id number]) [address] [place] [address] 78420 Glucose [Mass/Vol] 99 mg/dL Normal 65-99 [facility] Comment on above: Performed By: #### N UM #### [facility] ([id number]) [address] [place] [address] 64176 Potassium [Moles/Vol] 3.7 mmol/L Normal 3.5-5.0 [facility] Comment on above: Performed By: #### N UM #### [facility] ([id number]) [address] [place] [address] 11979 Sodium [Moles/Vol] 137 mmol/L Normal 134-146 [facility] Comment on above: Performed By: #### N UM #### [facility] ([id number]) [address] [place] [address] 09600 Urea nitrogen [Mass/Vol] 10 mg/dL Normal 5-23 [facility] Comment on above: Performed By: #### N UM #### [facility] ([id number]) [address] [place] [address] 94255 CBC AND AUTO DIFFon 05-30-19 ABSOLUTE BASOPHIL 0.1 X10E9/L Normal 0.0-0.2 [facility] Comment on above: Performed By: #### N UM #### [facility] ([id number]) [address] [place] [address] 31130 ABSOLUTE NEUTROPHIL 5.9 X10E9/L Normal 1.5-6.6 [facility] Comment on above: Performed By: #### N UM #### [facility] ([id number]) [address] [place] [address] 32017 Basophils/100 WBC (Bld) 0.9 % Normal [facility] Comment on above: Performed By: #### N UM #### [facility] ([id number]) [address] [place] [address] 60118 Eosinophils (Bld) [#/Vol] 0.1 10*3/uL Normal 0.0-0.4 [facility] Comment on above: Performed By: #### N UM #### [facility] ([id number]) [address] [place] [address] 87814 Eosinophils/100 WBC (Bld) 0.7 % Normal [facility] Comment on above: Performed By: #### N UM #### [facility] ([id number]) [address] [place] [address] 96871 Erythrocyte distribution width (RBC) [Ratio] 14.8 % Normal 11.5-15.0 [facility] Comment on above: Performed By: #### N UM #### [facility] ([id number]) [address] [place] [address] 94418 Hematocrit (Bld) [Volume fraction] 37.5 % Normal 35-47 [facility] Comment on above: Performed By: #### N UM #### [facility] ([id number]) [address] [place] [address] 61795 Hemoglobin (Bld) [Mass/Vol] 12.3 g/dL Normal 11.7-15.5 [facility] Comment on above: Performed By: #### N UM #### [facility] ([id number]) [address] [place] [address] 02218 Lymphocytes (Bld) [#/Vol] 4.5 10*3/uL High 1.0-3.5 [facility] Comment on above: Performed By: #### N UM #### [facility] ([id number]) [address] [place] [address] 27928 Lymphocytes/100 WBC (Bld) 39.5 % Normal [facility] Comment on above: Performed By: #### N UM #### [facility] ([id number]) [address] [place] [address] 67746 MCH (RBC) [Entitic mass] 27.0 pg Normal 27-34 [facility] Comment on above: Performed By: #### N UM #### [facility] ([id number]) [address] [place] [address] 44348 MCHC (RBC) [Mass/Vol] 32.8 g/dL Normal 32-36 [facility] Comment on above: Performed By: #### N UM #### [facility] ([id number]) [address] [place] [address] 22494 MCV (RBC) [Entitic vol] 82 fL Normal 80-100 [facility] Comment on above: Performed By: #### N UM #### [facility] ([id number]) [address] [place] [address] 38565 Monocytes (Bld) [#/Vol] 0.8 10*3/uL Normal 0-0.9 [facility] Comment on above: Performed By: #### N UM #### [facility] ([id number]) [address] [place] [address] 43740 Monocytes/100 WBC (Bld) 7.2 % Normal [facility] Comment on above: Performed By: #### N UM #### [facility] ([id number]) [address] [place] [address] 07662 Neutrophils/100 WBC (Bld) 51.7 % Normal [facility] Comment on above: Performed By: #### N UM #### [facility] ([id number]) [address] [place] [address] 51135 Platelet mean volume (Bld) [Entitic vol] 8.9 fL Normal 7-12 [facility] Comment on above: Performed By: #### N UM #### [facility] ([id number]) [address] [place] [address] 63595 Platelets (Bld) [#/Vol] 393 10*3/uL Normal 150-450 [facility] Comment on above: Performed By: #### N UM #### [facility] ([id number]) [address] [place] [address] 97436 RBC COUNT 4.56 X10E12/L Normal 3.80-5.20 [facility] Comment on above: Performed By: #### N UM #### [facility] ([id number]) [address] [place] [address] 79811 WBC (Bld) [#/Vol] 11.3 10*3/uL High 4.0-11.0 [facility] Comment on above: Performed By: #### N UM #### [facility] ([id number]) [address] [place] [address] 21202 HCG ( test) Ql (U)o n 05-30-2024 Beta HCG ( test) Ql (U) Positive Abnormal NEG [facility] Comment on above: Performed By: #### N UM #### [facility] ([id number]) [address] [place] [address] 54767 HCG.beta subunit IA 3rd IS Q non 05-30-2024 HCG.beta subunit Qn 612 m[IU]/mL Normal [facility] Comment on above: Result Comment: NEW REFERENCE [...] neoplasms. Performed By: #### N UM #### [facility] ([id number]) [address] [place] [address] 11622 URN MACROSCOPIC NURon 2024 BILIRUBIN NEHA Negative Normal NEG [facility] Comment on above: Performed By: #### N UM #### [facility] ([id number]) [address] [place] [address] 40524 BLOOD/HGB NEHA MODERATE Abnormal NEG [facility] Comment on above: Performed By: #### N UM #### [facility] ([id number]) [address] [place] [address] [place] [address] GLUCOSE NEHA Negative Normal NEG [facility] Comment on above: Performed By: #### N UM #### [facility] ([id number]) [address] [place] [address] 87831 KETONES NEHA Negative Normal NEG [facility] Comment on above: Performed By: #### N UM #### [facility] ([id number]) [address] [place] [address] [place] [address] LEUKOCYTE ESTERASE NEHA Negative Normal NEG [facility] Comment on above: Performed By: #### N UM #### [facility] ([id number]) [address] [place] [address] 16388 NITRITE NEHA Negative Normal NEG [facility] Comment on above: Performed By: #### N UM #### [facility] ([id number]) [address] [place] [address] 78582 PH NEHA 6.0 Normal 5.0-8.5 [facility] Comment on above: Performed By: #### N UM #### [facility] ([id number]) [address] [place] [address] 04237 PROTEIN NEHA Negative Normal NEG [facility] Comment on above: Performed By: #### N UM #### [facility] ([id number]) [address] [place] [address] [place] [address] SPECIFIC GRAVITY NEHA 1.020 Normal 1.003-1.035 [facility] Comment on above: Performed By: #### N UM #### [facility] ([id number]) [address] [place] [address] [place] [address] UROBILINOGEN NEHA 0.2 eu/dL Normal <1.1 [facility] Comment on above: Performed By: #### N UM #### [facility] ([id number]) [address] [place], [place] [address], [place] [address] [place] PREG LESS THAN 14 WKS WIT [...] Arauz MD on 05/30/2024 10:23 PM Normal [facility] PREG QUANT HCGon 025 HCG QUANTITATIVE 280 mIU/mL [facility] Comment on above: 5-50 0.2-1 WEEK 50-500 1-2 WEEKS 100-5,000 2-3 WEEKS 500-10,000 3-4 WEEKS 1,000-50,000 4-5 WEEKS 10,000-100,000 5-6 WEEKS 15,000-200,000 6-8 WEEKS 10,000-100,000 2-3 MONTHS [facility] PREG QUANT HCGon 025 HCG QUANTITATIVE 119 mIU/mL [facility] Comment on above: 5-50 0.2-1 WEEK 50-500 1-2 WEEKS 100-5,000 2-3 WEEKS 500-10,000 3-4 WEEKS 1,000-50,000 4-5 WEEKS 10,000-100,000 5-6 WEEKS 15,000-200,000 6-8 WEEKS 10,000-100,000 2-3 [facility] [place] CBC AND AUTO DIFFon 05-01-19 25 ABSOLUTE BASOPHIL 0.1 X10E9/L Normal 0.0-0.2 [facility] Comment on above: Performed By: #### Shakeel [facility], 1986-08 #### [facility] ([id number]) [address] [place] [address] 61847 ABSOLUTE NEUTROPHIL 8.0 X10E9/L High 1.5-6.6 [facility] Comment on above: Performed By: #### Shakeel [facility], 1986-08 #### [facility] ([id number]) [address] [place] [address] 70722 Basophils/100 WBC (Bld) 0.8 % Normal [facility] Comment on above: Performed By: #### Shakeel [facility], 1986-08 #### [facility] ([id number]) [address] [place] [address] 11175 Eosinophils (Bld) [#/Vol] 0.1 10*3/uL Normal 0.0-0.4 [facility] Comment on above: Performed By: #### Shakeel [facility], 1986-08 #### [facility] ([id number]) [address] [place] [address] 52898 Eosinophils/100 WBC (Bld) 0.5 % Normal [facility] Comment on above: Performed By: #### Shakeel [facility], 1986-08 #### [facility] ([id number]) [address] [place] [address] 60252 Erythrocyte distribution width (RBC) [Ratio] 14.9 % Normal 11.5-15.0 [facility] Comment on above: Performed By: #### Shakeel [facility], 1986-08 #### [facility] ([id number]) [address] [place] [address] 43504 Hematocrit (Bld) [Volume fraction] 38.2 % Normal 35-47 [facility] Comment on above: Performed By: #### Shakeel [facility], 1986-08 #### [facility] ([id number]) [address] [place] [address] 43020 Hemoglobin (Bld) [Mass/Vol] 12.8 g/dL Normal 11.7-15.5 [facility] Comment on above: Performed By: #### Shakeel [facility], 1986-08 #### [facility] ([id number]) [address] [place] [address] 71759 Lymphocytes (Bld) [#/Vol] 3.2 10*3/uL Normal 1.0-3.5 [facility] Comment on above: Performed By: #### Shakeel [facility], 1986-08 #### [facility] ([id number]) [address] [place] [address] 41135 Lymphocytes/100 WBC (Bld) 25.8 % Normal [facility] Comment on above: Performed By: #### Shakeel [facility], 1986-08 #### [facility] ([id number]) [address] [place] [address] 88814 MCH (RBC) [Entitic mass] 27.0 pg Normal 27-34 [facility] Comment on above: Performed By: #### [facility]el [facility], 1986-08 #### [facility] ([id number]) [address] [place] [address] 03600 MCHC (RBC) [Mass/Vol] 33.6 g/dL Normal 32-36 [facility] Comment on above: Performed By: #### Shakeel CANCINO [facility], 1986-08 #### [facility] ([id number]) [address] [place] [address] 37981 MCV (RBC) [Entitic vol] 80 fL Normal 80-100 [facility] Comment on above: Performed By: #### Shakeel [facility], 1986-08 #### [facility] ([id number]) [address] [place] [address] 06759 Monocytes (Bld) [#/Vol] 0.9 10*3/uL Normal 0-0.9 [facility] Comment on above: Performed By: #### Shakeel [facility], 1986-08 #### [facility] ([id number]) [address] [place] [address] 46815 Monocytes/100 WBC (Bld) 7.3 % Normal [facility] Comment on above: Performed By: #### Shakeel [facility], 1986-08 #### [facility] ([id number]) [address] [place] [address] 69030 Neutrophils/100 WBC (Bld) 65.6 % Normal [facility] Comment on above: Performed By: #### Shakeel [facility], 1986-08 #### [facility] ([id number]) [address] [place] [address] 31628 Platelet mean volume (Bld) [Entitic vol] 8.5 fL Normal 7-12 [facility] Comment on above: Performed By: #### Shakeel [facility], 1986-08 #### [facility] ([id number]) [address] [place] [address] 12887 Platelets (Bld) [#/Vol] 412 10*3/uL Normal 150-450 [facility] Comment on above: Performed By: #### Shakeel [facility], 1986-08 #### [facility] ([id number]) [address] [place] [address] 39948 RBC COUNT 4.75 X10E12/L Normal 3.80-5.20 [facility] Comment on above: Performed By: #### C [facility], 1986-08 #### [facility] ([id number]) [address] [place] [address] WBC (Bld) [#/Vol] 12.3 10*3/uL High 4.0-11.0 [facility] Comment on above: Performed By: #### C [facility], 1986-08 #### [facility] ([id number]) [address] [place] [address] 83935 CHLAMYDIA/GC BY PCRon 2024 CHLAMYDIA/GC BY PCR [...] are dependent on adequate specimen collection. Normal [facility] Comment on above: Performed By: #### C #### [facility] ([id number]) [address] [place] [address], [address] [place] [address] COMPREHENSIVE METABOLIC PANE [facility] 05-01-2024 Albumin [Mass/Vol] 4.1 g/dL Normal 3.2-5.3 [facility] Comment on above: Performed By: #### C [facility], 1986-08 #### [facility] ([id number]) [address] [place] [address] 74918 ALP [Catalytic activity/Vol] 92 U/L Normal 39-130 [facility] Comment on above: Performed By: #### C [facility], 1986-08 #### [facility] ([id number]) [address] [place] [address] 54280 ALT [Catalytic activity/Vol] 19 U/L Normal 0-31 [facility] Comment on above: Performed By: #### C [facility], 1986-08 #### [facility] ([id number]) [address] [place] [address] 11267 Anion gap [Moles/Vol] 7 mmol/L Normal 5-15 [facility] Comment on above: Performed By: #### Shakeel [facility], 1986-08 #### [facility] ([id number]) [address] [place] [address] 43905 AST [Catalytic activity/Vol] 17 U/L Normal 0-41 [facility] Comment on above: Performed By: #### Shakeel [facility], 1986-08 #### [facility] ([id number]) [address] [place] [address] 29872 Bilirubin [Mass/Vol] 0.3 mg/dL Normal 0.3-1.2 [facility] Comment on above: Performed By: #### Shakeel [facility], 1986-08 #### [facility] ([id number]) [address] [place] [address] 69337 Calcium [Mass/Vol] 8.7 mg/dL Normal 8.5-10.5 [facility] Comment on above: Performed By: #### Shakeel [facility], 1986-08 #### [facility] ([id number]) [address] [place] [address] 01252 Chloride [Moles/Vol] 109 mmol/L Normal 98-109 [facility] Comment on above: Performed By: #### Shakeel [facility], 1986-08 #### [facility] ([id number]) [address] [place] [address] 63145 CO2 [Moles/Vol] 23 mmol/L Normal 22-32 [facility] Comment on above: Performed By: #### Shakeel [facility], 1986-08 #### [facility] ([id number]) [address] [place] [address] 84243 Creatinine [Mass/Vol] 0.61 mg/dL Normal 0.40-1.00 [facility] Comment on above: Result Comment: METH OD TRACEABLE TO IDMS STANDARD Performed By: #### C HILLARY CANCINO, 1986-08 #### [facility] ([id number]) [address] [place] [address] 54023 eGFR (CKD-EPI) NON-RACE DEPENDENT >90 Normal >59 [facility] Comment on above: Result Comment: Reported eGFR is based on the CKD-EPI 2020 equation that does not use a race coefficient. Performed By: #### C [facility] 1986-08 #### [facility] ([id number]) [address] [place] [address] 66889 Glucose [Mass/Vol] 92 mg/dL Normal 65-99 [facility] Comment on above: Performed By: #### Shakeel [facility], 1986-08 #### [facility] ([id number]) [address] [place] [address] 52430 Potassium [Moles/Vol] 3.6 mmol/L Normal 3.5-5.0 [facility] Comment on above: Performed By: #### Shakeel [facility], 1986-08 #### [facility] ([id number]) [address] [place] [address] 20703 Protein [Mass/Vol] 7.1 g/dL Normal 6.0-8.0 [facility] Comment on above: Performed By: #### Shakeel [facility], 1986-08 #### [facility] ([id number]) [address] [place] [address] 27920 Sodium [Moles/Vol] 139 mmol/L Normal 134-146 [facility] Comment on above: Performed By: #### Shakeel [facility], 1986-08 #### [facility] ([id number]) [address] [place] [address] Urea nitrogen [Mass/Vol] 13 mg/dL Normal 5-23 [facility] Comment on above: Performed By: #### C [facility], 1986-08 #### [facility] ([id number]) [address] [place] [address] 44554 CRP [Mass/Vol]on 05-01-2024 C REACTIVE PROTEIN 1.4 mg/dL High 0.000-0.744 [facility] Comment on above: Performed By: #### C [facility], 1986-08 #### [facility] ([id number]) [address] [place] [address] 05626 HCG ( test) Ql (U)o n 05-01-2024 Beta HCG ( test) Ql (U) Negative Normal NEG [facility] Comment on above: Performed By: #### 2 106-3 #### [facility] ([id number]) [address] [place] [address] 72907 URINE CULTUREon 05-01-2024 Bacteria identified Cx Nom (U) CULTURE RESULTS <10,000 ORGANISMS/ML NORMAL URO GENITAL JONNY Normal [facility] Comment on above: Performed By: #### 6 30-4 #### [facility] ([id number]) [address] [facility], [address] [place] [address] URN MACROSCOPIC NURon 2024 BILIRUBIN NEHA Negative Normal NEG [facility] Comment on above: Performed By: #### N UM #### [facility] ([id number]) [address] [place] [address] 01724 BLOOD/HGB NEHA Negative Normal NEG [facility] Comment on above: Performed By: #### N UM #### [facility] ([id number]) [address] [place] [address] 85014 GLUCOSE NEHA Negative Normal NEG [facility] Comment on above: Performed By: #### N UM #### [facility] ([id number]) [address] [place] [address] [place] [address] KETONES NEHA Negative Normal NEG [facility] Comment on above: Performed By: #### N UM #### [facility] ([id number]) [address] [place] [address] [place] [address] LEUKOCYTE ESTERASE NEHA Negative Normal NEG [facility] Comment on above: Performed By: #### N UM #### [facility] ([id number]) [address] [place] [address] [place] [address] NITRITE NEHA Negative Normal NEG [facility] Comment on above: Performed By: #### N UM #### [facility] ([id number]) [address] [place] [address] 28329 PH NEHA 6.5 Normal 5.0-8.5 [facility] Comment on above: Performed By: #### N UM #### [facility] ([id number]) [address] [place] [address] [place] [address] PROTEIN NEHA Negative Normal NEG [facility] Comment on above: Performed By: #### N UM #### [facility] ([id number]) [address] [place] [address] [place] [address] SPECIFIC GRAVITY NEHA >=1.030 Normal 1.003-1.035 [facility] Comment on above: Performed By: #### N UM #### [facility] ([id number]) [address] [place] [address] [place] [address] UROBILINOGEN NEHA 0.2 eu/dL Normal <1.1 [facility] Comment on above: Performed By: #### N UM #### [facility] ([id number]) [address] [place] [address] [place] [address] US PELVIC WITH TRANSVAGINAL AND DUPLEXon 05-01-2024 [...] Alves MD on 05/01/2024 1:36 PM Normal [facility] VAGINITIS PANEL PCRon 2024 VAGINITIS PANEL PCR [...] clinical presentation to determine patient diagnosis. Normal [facility] Comment on above: Performed By: #### V PPCR #### [facility] ([id number]) [address] [place] [address], [address] [place] [address] Coding Summaryon 04-29-2024 Coding Summary HTMLBase 64 PwaduyrkKXb2tXf+PGhlY WQ+KE7SJLOfV37koHFhaV 9hZ1YBZAuRHmspRSJRPFc YMfJsqhJtYE6icLHrNTGx IC8+AN0fGNFkJxniuZHaw 0F4rHC5Q89lhr8zXUymrH I9YFQwHkVgpkqih1ilxNr 6IDcuNmluOyBt RAMtrC01NOJ4hD44Wl60h PVnrVKzt7mwwCv1UgFcNO VsXRN7sZkwCFbyg5XxVEY lA97xgEPha2K0 BORgwBxtdTEzLvHyjVY5p J7fZAtnpcrrp0hpruefTg r4uz85xEWqe6Z8xVM6X0S gqaP2DSZgdKDa EurvrIREfU8sgnuqm7ced sjcJhCgKLFeSEv7DVz0LP XbcWdlSxHbHM13YOZ7NFH mcmZcB6KwIVWk fJziNqY1w4B5Uu8FF4IIU xslH6ZHSOLWYMawgCK+PC 81bl02K1GkNoysLnw0GHX aTCG4bIN7xT6o URLlZKxik1S2iKW5K2Hwc uGmzs9it8kvUYYjAKncE5 8xdVRes0C4QEWfkJE8DUZ yzCqwLvSxiY79 Oyc+CLCpnUxbb0KtQkexl 2eux4ejtGv9JvszNNUrfe BqxAluNOY2c9WmRa7zHSQ vlPZ3eOW5bP9s LkRsDvG2YSpsK123XfKay BKoYxiiG93zL8EqjYA+PH FsMac6UMKcuAyiKC6zT5V hZGRpbmctbGVm nOobKV1fPCVwjncmYZWhe X2lVLYoJ4j7EgVxLkT2AB faV4NnASBmptytOs11wU5 hXsRjGyV4MQvc U8XfhqB1LCHvpHLwZUesO QT9J08zq5S5IPQfKWTeWX V0yRX0uX4afQgfgfoqjPS mdDsgdmVydGlj IWeaVDhvR995HEKjzUjwR kNvZGluZyBEYXRlOiAgMD EvMjIvMjAyNTwvdGQ+PHR gZZP9sWnyHSGb bBTcXDspCq5jgAtohZdbS E6gTUPhhmfbLIFfzC5dLT IiiNHksNnhKZ2xLYCwjme sc460JlUiMPX0 WCCcjIRqU9EldC4xAeUjX MQePZPaZ0OeuVPdVVyzS1 85NEghAqD9NEEikhSwF7U sLWFsaWduOiB0 n8G8Ay6Ul9UxsewyU1Div PVhSyUwEuikVEf4M9KhAy wvdHI+GD69INHfTB52POc 9CNI3eEjoHHhs XYOwV3QwdL0lAoFfGIEzK GRkOyc+PHRhYmxlIHdpZH RoPScxMDAlJyBzdHlsZT0 bNo0hCHDsHSMk kJvgwMUuAhFdr6xaOZSwW UrzGZ2dvKmwV3RzzGG0JL Wgc1k6Ud49S42yQ4SvlAT +PBAqoUN8mSZ0 uN9dElGzGhZ0THkiX232O iOfgEMoGpnyt0czh8awhM q4SwG9ZYBxmjSkxQrhBLF 5q9MiMw18V41i IHdpZHRoPSIxNSUiIHZhb Cdvrt0coJ8sPc2+PGNvbC G2eAP5cR4rOoLhLkN0DGh tT860TbJzeHIx Yfmmr6ilu2wbfKm8CrErM IRmwfHprFwwCCD8h5HaFo 70P2YgsVrqy9AfKic3ys0 8yRSlc7J3cEM8 T5JeLSJzdsuaiQKfgFlaJ Z3wYTZgtvyvSPLriS8fGD JqM5e5YxWwGmW7DKsaZ8I urfM0KXHqbKTa JFGapQKQvT7bqhinm6qkd uzuCtVlNNHcZRh9KVw2ML LimZrqHvYzXOF2UpZ1XIT 8iVXbwH6kzAzv flevqN9fXuc+LLK8zLCgy MDGHE0aQgkgfOL+PHRkIH K5jBfrAYaoXXIsvB4pYHV gY2m8CeXzLvS9 CTxzE0XxzeV0IXKdbOKaU ORarFMOiL5dtczur3bwtd ibPaOpRATaZKd0PJj6ECE saWduOiBsZWZ0 TeH5MEV8dXFqsZ2ldPhkq jxmqW3yNea+QmlydGggRG C3BIt4G4ThEca5WRCquLr dBO3xxCZbPVbr Tw5trSozsDvgHX1vMALys azsf816EdSkh0dwAWSjbS BwNCvnLAA6C49al5P8UZM vPNEvWLT7zVP4 oR8meFrzsaqakJYjmEpdz wQutIflTOurYRstF345MQ BtuLqdRvCbUOr8U3LyUrn 5VGAneKlkLK0a fAPlETgjSn3oaCzdrDsaH J1tRPLvbciof270GjTju5 rjSKCttIKkKPbhICF2G97 lt6N7VTSkGSJz HRG7dEI6zA7gzDogdkkjt GVmdDsgdmVydGljYWwtYW iaR098ODKxhNmsZkWuqNu 7A8UiCqf3WJAd gGysSC2hiXBiKPavUs2du RztzFdhMQ6qBDPtzghae3 92PeIwo0dfIVDnmEDiTIp wZDV2R92ql1K2 BROzUTEaKVX2bEU6aL7on GlnbjogbGVmdDsgdmVydG frTHnrHEmkR402RGOpiFm nPlBhdGllbnQg FJlgVFw7Z5MsGrgoeUF+P X33QJOrSH03eYMhoEIna1 mqlJr4BsWbAKVxAEU5aTo rCKnsb8LnEAXd S43ieLNgk6M9KZEsfJqit JBkCnUfkEI1lQ7uXMffwi wri9wgqkblCenmj3fxae2 6qM11I21mWPgg ZHRoPSIzMCUiIHZhbGlnb d7fxP3hHy3+TUHbeDD6nH F2wZ0tZTCpAiW8SDzxY28 9InRvcCIvPjxj d9qrl3lvzVu3CvL6WEFui yDgsOayOUI5l8SbHp80S7 9sIHdpZHRoPSIyMCUiIHZ geCtuss0lrP7q Ii8+QKNyiRJ7kMM1oP2bM pOzShL2SBzlU738GeSzaX IoQtmvT94yX4NkjEO+PHR qXug1ZISlxEcd RH3yvFFtIYxwMp5dIRL5J cZiJcLeENmzY1JqZZOicu lgacmioYL5FLJoPYLvyQ4 9Gx0onZieIYUu rVHJzX3kwqsji0uhtbzgW jLuMCHeVEp1YLj4VUPnrF jcYaStNLF9HuM6ZEX2hUE xfD5qbRzmxztz aM4jB4SqGXAwqgavBs06g Z3bOtQdLeS4JAqxLzf+R0 kNStTOZGirJ2bHLSWAZRj DFI6XZJhjtCI+ AYGiLJB5vLsuGMxyMSUsx D6pWIAuU1z6LpQuDgY0CB xqE8JqAZWkegumKm26rV8 mZqEtXvH2XStk H9AjnsS4OSXkhZVqAOteS DE2I06cs3G0PWQlZGCaKE A0vDI8nZ1upMuohvxroTF mdDsgdmVydGlj LExsANqwQ396JBBxwLncW jO3FhJlXuJaWDO8M4KhUl m8TDHlwMgaEF1gnCVpEYw cKk5smHbhbJbr JY4bRMAmrlliLYDlmY5wL SBfvOPtcAyaRB3tRIAzxw jsk463UrIeQYS2RUGzfLO eL8ImaV7fBiEh BQCpMJKcR7EfpXGiCKqiJ 148KLfuKrO4SSHvunNeV1 EgMSAahFogPpD0l9O2Vu2 yMiBZZWFyczwv dGQ+IFEhYYB4eWmbVQyyH VTuxF1fYEGuE2r0XeBpVh I0RRnaT0MpIBYfkhifIy8 1wI9gIvGcIqJ2 LVomF8YwsbG3AMNjvKUfC WnfQXK1L13yu3X0ABImAY FtHTC0fOF0hJ7wnEthynn gbGVmdDsgdmVy nOvjMFhwLEfzX545IUFfh DsnPkZFTUFMRTwvdGQ+PH DdOHQ8kPtcDFleYTGffQ4 fFWSwC9x8XpPx CzD4RLxaC1UhVOYdvtrlL z63aH5oBdMkPsU5SZqcX7 HbacV7JAKycDTaYFdpHBB 6Q13ka2U2MWUm NGEyENB1uBE3mH1ubGitu jogbGVmdDsgdmVydGljYW uoPKdxM653QLRymIqyQiU bPERxCR5spThp dGQ+NI31vj33U2MeBrdeX ql7WJIkJSJ4gKK6gF2xXP XiJWuoj4P0sUR6U3YmpxE sfs0wj9diVNPs SJagD72zoLMja1Z4BRSvm FA2XWFwxPvaCnSewW84Fk c+NAPbtXqxz5CtBooys9l zd8eblFg5VxXs WXQwohJchTcxGCN0m4KdL g33K64eNXieYZAjMXXmRP GeGTVnlGvqrc2stW9oDo4 +RSRjtOP8bUV8 xH5gQdAoZvN3GIvnQ969B bNcaFWsKcqfr5gvk9sffX d1OkDgSFIjmwMxqLppSOC 4f3QsBs94K2Oz qFcnd0OfFym7oz19kVQrx 5V3bDP7B4CeHRSgowagfF LvnNofSJ5wHXSqfhbbIBU xaP5sLSHaB6k3 EoYbLtQ8LYhfJ5HpsmP7S PTdgDPlBFMskOLMxK2mpe duu0pakstcOpIpCXFyYVe 5UXv5PQThaElm YwQdIBQ9JdL0CES1wFXny K6wxMfkvrojnX3wJlg+UG d7n5imzXLeLO1bpAS3BL0 4UE05jWNfa5K0 bJY2K3NbSIBfvgqutgnuh ZP9ZZNpNZYdhS64Lr1maY ynSm1lDMEaBBY9MZHmbOZ lP1GfbU9gMuId IHMgIWHdZ3QexGZoOJuhV 978UNlwWwX1HTMbreZzE4 QlCYLewUsdEaG8i6B6Zv8 TZD06JP66WF87 kFInv2P9iZE5F7QwRXSmu goiirbohHB6EBWrCLMqkS 22Pu2lkQezMx4rUDHxGWC 0PQFruICaY8Zq cB7tYgJpZUJzVLTvU9Ihe GPmYGkgJ883FVmbAcV7HG PyktCnM7RvDVDjhKqwZoK 2f6C5Hw5GNl39 IX68JB10yPOns1R3qBA2Q 8EfOEDzrhbjjpxpyOZ8KH UzUBYotA50Se5hqAiyCh3 zYYHeJVV4VOBc lSLaQ7CzbS1jUlKdHLHcR BQaZ7IgkEZfKOejL006BL roWtD1FTVifjOwF3JoHXA zrUwrMsP2l1C8 Zx8SXKofcta3U7FbEsqkb HI+YO22HDZuVX56tERfdT Pga7aimZv8JxJnSYGeXJD 5sIdxEWfcl0Ih ZXI (more content not included)... Normal [facility] XR CHEST 1 VWon 04-22-2024 XR CHEST 1 VW XR CHEST 1 VW Portable chest: HISTORY: Cough and fever. The chest was obtained. Right upper lobe density is most likely represent granulomas. Lungs otherwise clear. There is no cardiac contour abnormality. No effusion or pneumothorax. IMPRESSION: No acute findings. Finalized by Yvan Oseguera MD on 04/22/2024 1:52 PM Normal [facility] ED Clinical Summaryon 2024 ED Clinical Summary [facility] - Emergency Department [address] [place] [address] ED Clinical Summary PERSON INFORMATION Name: LIA DESAI Age: 23 Years Sex: FEMALE : 2000 MRN: Acct#: Visit Reason: Body aches; Cough; FEVER, COUGH Arrival: 04/19/2024 08:50:39 Discharge: 04/19/2024 09:24:00 LOS: 000 00:34 Check In: 04/19/2024 08:50:39 Checkout:04/19/2024 09:24:00 Address: [address] [place] [id number] PCP: Provider, Unlisted PROVIDER INFORMATION Provider Role Assigned Unassigned Abner Harvey MD ED Provider 04/19/2024 09:05:18 Jayne Zuñiga DIANETIC COUNSELOR Nurse 04/19/2024 09:05:51 VITALS INFORMATION Vital Sign [...] reactions were documented.. Medications: (Selected) Prescriptions Prescribed Guy Saline Mist 0.65% nasal spray: 2 spray(s), !-Nasal, QID, for 7 day(s), 1 EA, 0 Refill(s) metroNIDAZOLE 0.75% vaginal gel with applicator: 1 jamel, Vaginal, Once, 70 gm, 0 Refill(s). Past Medical/ Family/ Social History Medical history: Resolved Disease caused by 2019 novel coronavirus ([id number]): Onset on 11/23/2020 at 20 years. Resolved. Comments: 11/23/2020 CDT 16:07 CDT - SYSTEM Problem added by Rule (IC_COVID19_AUTO_PROB CAMI) following 2019 Novel Coronavirus (CoVID-19), MILY L from Nasopharyngeal Swab collected on 22-NOV-2020 16:44:00 EDT tested positive for COVID-19. no history ([id number]): Resolved. Contact dermatitis (50957354): Resolved. Pharyngitis (9467869799): Resolved. Cough (70022873): Resolved., Reviewed as documented in chart. Surgical history: Tonsillectomy and adenoidectomy ([id number])., Reviewed as documented in chart. Family history: [...] Never , R (more content not included)... [facility] ED Note - Physicianon 2024 ED Note [...] reactions were documented.. Medications: (Selected) Prescriptions Prescribed Guy Saline Mist 0.65% nasal spray: 2 spray(s), !-Nasal, QID, for 7 day(s), 1 EA, 0 Refill(s) metroNIDAZOLE 0.75% vaginal gel with applicator: 1 jamel, Vaginal, Once, 70 gm, 0 Refill(s). Past Medical/ Family/ Social History Medical history: Resolved Disease caused by 2019 novel coronavirus ([id number]): Onset on 11/23/2020 at 20 years. Resolved. Comments: 11/23/2020 CDT 16:07 CDT - SYSTEM Problem added by Rule (IC_COVID19_AUTO_PROB CAMI) following 2019 Novel Coronavirus (CoVID-19), MILY L from Nasopharyngeal Swab collected on 22-NOV-2020 16:44:00 EDT tested positive for COVID-19. no history ([id number]): Resolved. Contact dermatitis (87114147): Resolved. Pharyngitis (6999337659): Resolved. Cough (01054727): Resolved., Reviewed as documented in chart. Surgical history: Tonsillectomy and adenoidectomy ([id number])., Reviewed as documented in chart. Family history: [...] clear, or (more content not included)... Normal [facility] ED Patient Summaryon 025 ED Patient Summary [facility] - Emergency Department [address] [place] [address] PATIENT DISCHARGE INSTRUCTIONS Patient Information Name: LIA DESAI Age: 23 Years Date of : 2000 [facility]: [id number] Reason For Visit: Body aches; Cough; FEVER, COUGH Arrival Time: 04/19/2024 08:50:39 Primary Care Physician: Provider, Unlisted Attending Physician: Abner Harvey MD Comment: Visit Diagnosis: Diagnoses This Visit Body aches ([id number]) Cough ([id number]) Viral URI with cough (J06.9) The Pharmacy at [facility] is open Saturday through Saturday from [...] alcohol and/or drug addiction problems; contact the [facility] 29/10 Crisis Hotline -Text 4PTON to 216504. If you received any narcotics, sedation, or [...] doctor. Alternatively, you may follow-up with the [facility] if you are not able to see a PCP in the recommended time. Continue with the current treatment as outlined by the ER physician, Dr Harvey. Called the emergency department if you have any questions concern. Return to the emergency department if you have significant symptoms that concerns you. Medication Information: The exam and treatment you received today in the [facility] Emergency Department were for an urgent problem and are not intended as complete care. It is important for you to follow up with a doctor, nurse practitioner, or physician?s language assistant for ongoing care. If your symptoms [...] so we can reach you if necessary. [facility] Emergency Department has provided you with a complete list of medications post discharge. Please inform your steersman/provider of your visit and for further instruction [...] Vaginal once. Refills: 0. sodium chloride nasal (Guy Saline Mist 0.65% nasal spray) 2 spray(s) [...] Respiratory Ra (more content not included)... Normal [facility] Progress Note - Nurseon 04-08 Progress Note - Nurse Patient walks to room 6. Patient is alert and oriented X 4. Patient is here for a cough, body aches, fever and sore throat since yesterday. Pt. states she tested herself for covid yesterday and had a faint positive. [Electronically Signed on: 04/19/2024 09:11 EST] Zara, July RN [Verified on: 04/19/2024 09:11 EST] Zara, July [facility] Coding Summaryon 03-24-2024 Coding Summary HTMLBase 64 QzwuushtPHo4oGm+PGhlY WQ+RR2TXLYoT33trTRfiF 1pC0AOTBoXAlqhCLWQRLk WAjJhitYkGX4mpTLiKGTk IC8+KS2dJCPfHckcxNBni 9G5oEF1M33foh1yNRkifT P9KXNuAfLyqhqlx2tsyZs 6IDcuNmluOyBt KBQolU95DIK7kS72Ef50h OSnhHHth4ntiJe4KhGnQX CxBMX8xMplMEzlr6BcUKX wA83jyOJxg9W5 CEXbaPjkzVStQtEmoJR4j Q5dKQylegash1gsiunwJw v1rr88lEVsp3M2rEI7Q0W unbH2YLCmjDDd OlbjdEYIoZ0clobzs1qig lijWoZrXJRzPYe6GPq5IL ZrtRncEtQwUR79VRA5LUE nzxNwM3EqILOj eWbhXsU7j8R8Ap6WZ2HIY turE9LXMEJIAKvazLN+PC 23ln04S5HjBwsjYsw0TVT rVZZ1ePU0nC7j QOMjPPvaw4H5vNP2K8Qzh zKhgz7vh2hdRSCdAIazZ3 2okDYtx7Q1NAYwiLZ2YJB jmSsuZhRfzH23 Oyc+MNGrbHikx9VrGyuux 2rjg4ijkVb4ZzlkBWTcvm MjbFjpQHO3k4UqBj4wVQY raUG4jOB7vN3b UrFyZuX0VCduV262XsZpc XAnFjfwO65fQ8DcqZZ+PH VnIkr6LKPijJtbNC5rG5S hZGRpbmctbGVm kWxiUH5cAPBgtzgvJAFwq F4pFCKqA1r2WyCpIrB5UW djF3MqGELddqakCc89bT3 mEaOuVoN1ZVde Y9OjukA6RDVbrNMfAPkdK UW1L51xs3D5JUAdLGIqHJ Q7vNR6pU4yaCuqilyuzHL mdDsgdmVydGlj YDgaHLqwV123VLHnsZidO kNvZGluZyBEYXRlOiAgMT IvMTcvMjAyNDwvdGQ+PHR uMEQ0xTimDBGc pXToWAnlZc8tkZxwuGmhL Q8lYQOvlgoeBBLuuM3rAE FajYWdaUixWZ2gFDJahgd ch108VgHaZCP2 PPTwgTTtG1OncM1gQnCgA PPjNKMhQ7GbwNUvIYtcT4 53RWftMlU1ZTMxvxVdE5T sLWFsaWduOiB0 j8G2Sh8To1AhslebY5Jca ELuEcEyAxfnTYx5X0HbFo wvdHI+US50DEMnOX46RCk 7BTE0oHpnMEeh HTWrJ3ZhtX6hDsHfWXMkN GRkOyc+PHRhYmxlIHdpZH RoPScxMDAlJyBzdHlsZT0 wUv0dZDHgQNQt xIwhlGNiRnDdc1goLNWyU BnaLT1rnChiY6RxlRD2VQ Bqj7q8Qw97T03rR8NntVL +SPCfxTL5zZC4 jS6qJnLpDsH4SIfdV802Z yTepRVjIfnqq4dop6olqV r4GqL3ADEwdgNywAtwXOV 2f4BwZd05F54s IHdpZHRoPSIxNSUiIHZhb Tuflf3anU1yTi7+PGNvbC B9fZR5jN3fQyLdFdY2GAc rW321EmGtcBFg Lefdx6aoa8rdzYf1UkVcF EGshqExaFmxWZW8u2QfHh 03R8ZmqHehr3YzFji9ne9 1eYIoe9Y9bZA6 S6MhFISfrywubXGmaChrT N0lQMAvncfqBRCfyL6qGF GoW3m8SnSmFeN5ZUocD9X pwcB2RIDcbVGh RWQwyIIHeL0psfrcw4czm yzaIhFoWTQzKIg2NGj5WR NntVbmBgNqQLW5HlF7ATU 6uEDjfV8bcWzx savpoA3xTvl+ZYE9dTSwv PJZJH4fXmrqgJI+PHRkIH F9eEstAKseCOFfkR5kFJR cD5y0LeTdZxQ0 DUtyJ8JnlmV2SUGycOGoI YTuwZUAoG4alupqj4xnqh vfAfKfIDCpUAz0CNl5BHU saWduOiBsZWZ0 GhI0QZJ3bXTxpK9pcQakf dkfaV8qAsi+QmlydGggRG F4QHd1P2DbDur2JJNfmId dAQ5dsLJlMKlp Oy4ziQdjnGbaNN0oKWYkr pzcx533NrHix6vqERZngY PkJDofXDP6R80oj8F4ECC zQGNbMBS5dVP6 sI3onWeotyhdiFXaxLenk eMexHycIFdgSQybV647TK YtvDnsHgHbLQq9A4WiQze 5KQHetTgnGE1u cHMnOMdoAu3wsBcygYosD N4vFNGmzdahi199JaAxx4 olSGDrlHHfMZduFQX9Q59 ya9H2FDIvTYSb PEF2qJT1eM9kfHiptsqbp GVmdDsgdmVydGljYWwtYW smK106ICSbcZvoHrIomMm 6J0IrGlz7JKDj xHgdXS1kbSThXWkbVx3cb SeuuGrmWM7tUSBidcwsv1 41IsZxv2nyFEXrtDGwSDn xMRF0G52se2A8 DYYwAJNuOJD6jAA3aN5av GlnbjogbGVmdDsgdmVydG mtIFknKPnjK152HHPlmKh nPlBhdGllbnQg LQpmHIs2S0FkLabipEI+P O01SDIxKR78cVZdxKSwk2 gfvEb5CsDmMIUpLXZ4hWy vULawi8SnHPBv J06jcLFvi6C4XPJtjApkv HZbQyYamZU5uM9lJYrqxw pfk3gxqxprJewgl5xhqr1 2nI47L25eXBnc ZHRoPSIzMCUiIHZhbGlnb z3xdD3dTs7+RIIvnVL0hR R5rE0kHIPxExC2VXphX22 9InRvcCIvPjxj m1iwq9uzmJb9VtJ0IBKbg tDjpSorSDW6h3VxEn86G7 9sIHdpZHRoPSIyMCUiIHZ cuHooml1ymG7p Ii8+HFWaoKH2mWU5sZ4tC uNxVcI2UDgaM416YsAcpC IrFmecZ72tE1TjmQM+PHR qUyz6BKEgrYxk RI3dbSXuUFboYl4rALF3L vIdJwVeXQwaC3NuOWNhky qhphwxnUT7AQIiAOWkgL0 1Oh6xvSdvGGTs qICZsA8kncblz5rqqtnuV jLrZOYhYIi3XYf9JKHiyZ rzBxGhEFD8RbT9VOG6jLI nvQ8auZzjoqwb hM3qZ2QfUBKruafsQq81r W5lHqQwJdH4GVzuOjs+R0 cTTgXYVLnbE1rALIWZBEr NXH2UODbaxIC+ JQHjZHO4jBlxUYceBXBtr X5hHBEzX1u6PeXiFyV3QP yeO6GvGJPqpmgkJh22aZ6 jKuRmIvZ6ZAba R6KsdyF6PKCrbPYrEDjjS UD7T17bq7T2HSNkBZCnYS H1hEP6cM0txDjuemkkpFA mdDsgdmVydGlj TZgtEZqeE064WBPwhLhvS pU3ZmOcKlTmARS9M4MsBl y9TQXvrIejCH6ivLCpVRz wGo4ijVffqExs ZJ4sJVQrbainWRCgaM4bW IIwgVMidGifCW6lERNump akr167WiEmANC6KFJcwUP lQ2JxhI5zXgZw JGNfUBXiY9IviLGpDCbcR 471HWvyIcW6SKRkitKhB4 PnTLKbjFzfNuH6e4V3Sq3 yMiBZZWFyczwv dGQ+IYKsFBT0nTgzKHvvQ UIxmV6iVSGkZ3g5ErFfUk M5MKjsE4KfDTPbykgcTf7 5pX6jKlCrYvJ2 XBklP2NspzT2EMSvbWGaC UraTQS4M39mn4W3RLWiJE LcBEB2vAT2fJ6nsVzfbys gbGVmdDsgdmVy mWjlFNpzDHlhS228RREil DsnPkZFTUFMRTwvdGQ+PH HbPGA2gVefMKvfBCGuyD9 pRPEdH1h5VwHc WlM5CVdlA7HbQSAqclmwN i23uC5xYcLzQsM8EItsW0 CndbO4YCBrrHFaFLcqURF 4Z91ze1A5WMUu NOVxQUI3pDD4mR2kyYzqb jogbGVmdDsgdmVydGljYW tbGDtxA160MIDleEsnLbL nSBIjUA8puMvl dGQ+KK09oh48I5RbAllhY zn1VYMhODW0eKV1cB9mPQ KdZMhzl3P0dST8I6QousL euv5ox5rfCXDv JAtgJ81sgFHyl8H4BDBul RM8NZJjsKecZuPgqW93Cu c+VPUmgEzhc0KwOpcdl8r id5sdiKo4SoVc EKOpjfTatFmxCQG8x8VzM k47T62zFAtjIPOcWPHwDW QwYJYajEisit6yoS9fGo6 +KGObyQY8hUC7 aG5jWkDvQiV7EMhcD760A kQsrUWnApagf4oaj2zahL u0CrHyICJjlaClhMplXRB 7x2NdEf27W4Kv lXgsh4LtEck9zs31cUHqn 2L6mXU5R2WqWVEjfujxmI NsiVqdGN1zDSBpzyllRKZ xsL1vGXLlX1e9 HhVsZvO3NOfbS0TvpqU5W RStaYSuLXWlcANSpO7jzr igd1xspgfgHyFuCYLsHPe 0QCm0NXJmrJov UiXpLRO3JsI2UTR8tYRlj L1cbGftfpgkbG0qDcv+UG p5u3zrvXIyEF8xuNZ9FD3 3OL34vIOft0Q7 mAW0U8AsQCXyexgtbrwdh BV3IHWkIJIhtD86Yc0gjU msAz7hJDMgBBV6VDSkjKS wZ3UwsL1vUnBz XYGwZJOkT4ShqZLmSVdjQ 316HKjkTvQ4MFWyaxPuE6 IcVXJwnLhbNlH2y5Q8Ny1 JVY79IY74KU60 xGGid2F3kUS8P0EuLXLqp oknyvbfgJF6RTLtKOCcxM 95Gg6qwGbgUe5jWCChFSY 4FZAuzRXcE8Ff yJ5sLvPsEOSaZEKjU2Ybx KYbHNriS668WBghCdE4PJ WdceSbV5MuLTBanRegNlM 8j4E7Yh1DCf37 KK22KP93kBYva0P5rGK5G 5ZgPXCxiuemfyabvUO3NA VkYWLhtB70Ez9dcQvbLt5 fPPPrRZZ4PSFz vWVpW3GkyA0dXlOpBMPwM DWpK1VbgKKgXRvlZ657UW iqMkF0WVPygzRvE1ZfTVR muQlkVgP0e3U4 Ls6OXSkzncp1N1KsPfjpy HI+SR16OURpCF92zWQupA Kik5vnwMw6EvXpNWBhLKO 8tYtmANphb6Hr ZXI (more content not included)... Normal [facility] .Auto Diff 03-20-2024 Auto Wasatch % 8 % Normal 04-19 [facility] Comment on above: Performed By: #### 1 [id number], [id number], [id number], [id number] ####[facility] (DEFAULT)[address] [place] [address] Baso Abs# 0.1 x10 Normal 0.0-0.2 [facility] Comment on above: Performed By: #### 1 [id number], 4384856, 8994815, [id number] ####[facility] (DEFAULT)[address] [place] [address] Basophils/100 WBC (Bld) 1.0 % Normal 0.2-2.0 [facility] Comment on above: Performed By: #### 1 [id number], 0881423, 9220143, [id number] ####[facility] (DEFAULT)[address] [place] [address] Eos Abs# 0.1 x10 Normal 0.0-0.4 [facility] Comment on above: Performed By: #### 1 [id number], 6347384, 9369684, [id number] ####[facility] (DEFAULT)[address] [place] [address] Eosinophils/100 WBC (Bld) 0.9 % Normal 0.9-4.0 [facility] Comment on above: Performed By: #### 1 [id number], 4433082, 3108047, 30477795 ####[facility] (DEFAULT)[address] [place] [address] Lymph Abs# 2.5 x10 Normal 1.3-2.9 [facility] Comment on above: Performed By: #### 1 [id number], 3916507, 1609273, 09014317 ####[facility] (DEFAULT)[address] [place] [address] Lymphocytes/100 WBC (Bld) 32 % Normal 14-48 [facility] Comment on above: Performed By: #### 1 [id number], 0420865, 6534292, 27342144 ####[facility] (DEFAULT)[address] [place] [address] Wasatch Abs# 0.6 x10 Normal 0.0-0.8 [facility] Comment on above: Performed By: #### 1 [id number], 3333678, 5709262, 99981319 ####[facility] (DEFAULT)[address] [place] [address] Neut Abs# 4.5 x10 Normal 1.5-9.2 [facility] Comment on above: Performed By: #### 1 [id number], 2605583, 4962598, 22579490 ####[facility] (DEFAULT)[address] [place] [address] Neutrophils/100 WBC (Bld) 58 % Normal 44-88 [facility] Comment on above: Performed By: #### 1 [id number], 2742196, 3374183, 67223895 ####[facility] (DEFAULT)[address] [place] [address] CBC w/ Auto Diffon 4 Erythrocyte distribution width (RBC) [Ratio] 15.2 % High 11.5-15.0 [facility] Comment on above: Performed By: #### 1 [id number], 2682469, 3799907, 69618964 ####[facility] (DEFAULT)[address] [place] [address] Hematocrit (Bld) [Volume fraction] 39.9 % Normal 33.7-40.4 [facility] Comment on above: Performed By: #### 1 [id number], 2063290, 3495370, 65159244 ####[facility] (DEFAULT)[address] [place] [address] Hemoglobin (Bld) [Mass/Vol] 13.3 g/dL Normal 11.3-15.9 [facility] Comment on above: Performed By: #### 1 [id number], 4266786, 3935421, 35317150 ####[facility] (DEFAULT)[address] [place] [address] Man Diff? Auto Invalid Interpretation Code [facility] Comment on above: Performed By: #### 1 [id number], 6710901, 7280421, [id number] ####[facility] (DEFAULT)[address] [place] [address] MCH (RBC) [Entitic mass] 27 pg Normal 24-34 [facility] Comment on above: Performed By: #### 1 [id number], 5324457, 8845336, 85855212 ####[facility] (DEFAULT)[address] [place] [address] MCHC (RBC) [Mass/Vol] 33 g/dL Normal 26-37 [facility] Comment on above: Performed By: #### 1 [id number], 9499086, 4359261, 36285717 ####[facility] (DEFAULT)[address] [place] [address]642 MCV (RBC) [Entitic vol] 81 fL Normal 81-100 [facility] Comment on above: Performed By: #### 1 [id number], 4555209, 7539662, 07298114 ####[facility] (DEFAULT)[address] [place] [address] Platelet 350 x10 Normal 138-427 [facility] Comment on above: Performed By: #### 1 [id number], 9343201, 0369687, 53737489 ####[facility] (DEFAULT)[address] [place] [address] Platelet mean volume (Bld) [Entitic vol] 8.4 fL Normal 6.3-10.2 [facility] Comment on above: Performed By: #### 1 [id number], 4984267, 4140200, 98973195 ####[facility] (DEFAULT)[address] [place] [address] RBC 4.90 x10 Normal 3.70-5.30 [facility] Comment on above: Performed By: #### 1 [id number], 2532581, 9196748, 69193053 ####[facility] (DEFAULT)[address] [place] [address] WBC 7.7 x10 Normal 3.5-10.5 [facility] Comment on above: Performed By: #### 1 [id number], 6774949, 9173759, 58456386 ####[facility] (DEFAULT)[address] [place] [address] Standardon 03-20-2024 eGFR Non AA >60 Invalid Interpretation Code [facility] Comment on above: Performed By: #### 1 [id number], 5117781, 1586076, [id number] ####[facility] (DEFAULT)[address] [place] [address] eGFR AA >60 Invalid Interpretation Code [facility] Comment on above: Performed By: #### 1 [id number], 5522100, 4603840, 98558800 ####[facility] (DEFAULT)[address] [place] [address] Albumin [Mass/Vol] 3.9 g/dL Normal 3.5-5.0 [facility] Comment on above: Performed By: #### 1 [id number], 7278708, 2334983, 92004921 ####[facility] (DEFAULT)[address] [place] [address] Albumin/Globulin [Mass ratio] 1.0 {ratio} Low 1.4-2.6 [facility] Comment on above: Performed By: #### 1 [id number], 5899668, 6993909, 31259735 ####[facility] (DEFAULT)[address] [place] [address] Alk Phos 111 IU/L High 32-91 [facility] Comment on above: Performed By: #### 1 [id number], 9788389, 1164910, 15773202 ####[facility] (DEFAULT)[address] [place] [address] ALT [Catalytic activity/Vol] 24.0 U/L Normal 14.0-54.0 [facility] Comment on above: Performed By: #### 1 [id number], 0839891, 0252214, 73982206 ####[facility] (DEFAULT)[address] [place] [address] AST [Catalytic activity/Vol] 22 U/L Normal 15-41 [facility] Comment on above: Performed By: #### 1 [id number], 7348298, 1830017, 11441937 ####[facility] (DEFAULT)[address] [place] [address] Bili Total 0.6 mg/dL Normal 0.3-1.2 [facility] Comment on above: Performed By: #### 1 [id number], 3649083, 8526070, 11548324 ####[facility] (DEFAULT)[address] [place] [address] Creatinine [Mass/Vol] 0.70 mg/dL Normal 0.60-1.30 [facility] Comment on above: Performed By: #### 1 [id number], 7104206, 7451233, 03912818 ####[facility] (DEFAULT)[address] [place] [address] Globulin (S) [Mass/Vol] 3.6 g/dL Normal 1.5-4.3 [facility] Comment on above: Performed By: #### 1 [id number], 6474177, 9770048, 71601159 ####[facility] (DEFAULT)[address] [place] [address] Osmolality 272 mOsm/L Invalid Interpretation Code [facility] Comment on above: Performed By: #### 1 [id number], 9313143, 5747541, 65334723 ####[facility] (DEFAULT)[address] [place] [address] Protein [Mass/Vol] 7.5 g/dL Normal 6.5-8.1 [facility] Comment on above: Performed By: #### 1 [id number], 6008649, 5948030, 60412991 ####[facility] (DEFAULT)[address] [place] [address]5849 Urea nitrogen [Mass/Vol] 14 mg/dL Normal 8-26 [facility] Comment on above: Performed By: #### 1 [id number], 4132107, 2070077, 33394886 ####[facility] (DEFAULT)[address] [place] [address]478 Urea nitrogen/Creatinine [Mass ratio] 20.0 mg/mg High 4.6-16.2 [facility] Comment on above: Performed By: #### 1 [id number], 4292930, 1485063, 84393785 ####[facility] (DEFAULT)[address] [place] [address]2816 Anion gap [Moles/Vol] 14.2 mmol/L Normal 5.0-19.0 [facility] Comment on above: Performed By: #### 1 [id number], 6622869, 4668497, 48141682 ####[facility] (DEFAULT)[address] [place] [address]1015 Calcium [Mass/Vol] 8.7 mg/dL Low 8.9-10.3 [facility] Comment on above: Performed By: #### 1 [id number], 0606343, 0146187, 87851241 ####[facility] (DEFAULT)[address] [place] [address] 63295 Chloride [Moles/Vol] 104 mmol/L Normal 101-111 [facility] Comment on above: Performed By: #### 1 [id number], 5514318, 7072102, 78737785 ####[facility] (DEFAULT)[address] [place] [address] 56561 CO2 [Moles/Vol] 22 mmol/L Normal 21-32 [facility] Comment on above: Performed By: #### 1 [id number], 2969786, 4816480, 99854336 ####[facility] (DEFAULT)[address] [place] [address] Glucose [Mass/Vol] 96.0 mg/dL Normal 74.0-118.0 [facility] Comment on above: Performed By: #### 1 [id number], 3362001, 6311461, 08639597 ####[facility] (DEFAULT)[address] [place] [address]887 Potassium [Moles/Vol] 4.2 mmol/L Normal 3.6-5.1 [facility] Comment on above: Performed By: #### 1 [id number], 3771858, 6719525, 19551202 ####[facility] (DEFAULT)[address] [place] [address] 49198 Sodium [Moles/Vol] 136.0 mmol/L Normal 136.0-144.0 [facility] Comment on above: Performed By: #### 1 [id number], 3377896, 2426602, 89851823 ####[facility] (DEFAULT)[address] [place] [address] Abdomen/Pelvis w/o Kamerona kristen 03-20-2024 CT Abdomen/Pelvis w/o Contrast EXAMINATION: CT [...] 03/20/24 9:36 am Technologist: JEN PATEL Normal [facility] ED Clinical Summaryon 2023 ED Clinical Summary [facility] - Emergency Department [address] [place] [address] ED Clinical Summary PERSON INFORMATION Name: LIA DESAI Age: 23 Years Sex: FEMALE : 2000 MRN: Acct#: Visit Reason: Back pain; LOW BACK PAIN Arrival: 03/20/2024 06:28:58 Discharge: 03/20/2024 09:56:00 LOS: 000 03:28 Check In: 03/20/2024 06:28:58 Checkout:03/20/2024 09:56:00 Address: [address] [place] [address] PCP: Provider, Unlisted PROVIDER INFORMATION Provider Role Assigned Unassigned Oneil Littlejohn DO ED Provider 03/20/2024 06:30:59 Sudha Virgen DIANETIC COUNSELOR Nurse 03/20/2024 07:13:25 Joelle Nava DIANETIC COUNSELOR Nurse 03/20/2024 07:40:00 Abner Harvey MD ED [...] Impression and Plan Diagnosis Back pain (PNED [id number], Reason For Visit, Emergency medicine, Medical) Left flank pain (WYT88-NI R10.9, Discharge, Medical) Plan Disposition: Patient care transitioned to: Time: 03/20/2024 08:00:00, Abner Harvey MD, Change of shift.. DISCHARGE INFORMATION: Discharge Disposition: Home Discharge Location: Home PATIENT EDUCATION INFORMATION Instructions: Bacterial Vaginosis, Uzrh-qb-Bwea; Acute Back Pain, Adult Follow-Up: With: Address: When: Follow up with primary care provider Within 3 to 5 days Comments: Reviewed discharge care instruction. Continue with therapy as outlined by Dr. Harvey. Take your medication as (more content not included)... [facility] ED Note - Physicianon 2023 ED Note [...] reactions were documented.. Medications: (Selected) Prescriptions Prescribed Guy Saline Mist 0.65% nasal spray: 2 spray(s), !-Nasal, QID, for 7 day(s), 1 EA, 0 Refill(s). Past Medical/ Family/ Social History Medical history: Resolved Disease caused by 2019 novel coronavirus ([id number]): Onset on 11/23/2020 at 20 years. Resolved. Comments: 11/23/2020 CDT 16:07 CDT - SYSTEM Problem added by Rule (IC_COVID19_AUTO_PROB CAMI) following 2019 Novel Coronavirus (CoVID-19), MILY L from Nasopharyngeal Swab collected on 22-NOV-2020 16:44:00 EDT tested positive for COVID-19. no history ([id number]): Resolved. Contact dermatitis (16155871): Resolved. Pharyngitis (9464152011): Resolved. Cough (38120402): Resolved.. Surgical history: Tonsillectomy and adenoidectomy (826415445).. Family history: No family history items have [...] 71 bpm (more content not included)... Normal [facility] ED Note - Physician Patient: LIA [...] Impression and Plan Diagnosis Back pain (PNED [id number], Reason For Visit, Emergency medicine, Medical) Left flank pain (DYI49-JT R10.9, Discharge, Medical) Plan Disposition: Patient care transitioned to: Time: 03/20/2024 08:00:00, Abner Harvey MD, Change of shift.. [Electronically Signed on: 03/20/2024 07:33 EST] Oneil Littlejohn DO [Verified on: 03/20/2024 07:33 EST] Oneil Littlejohn DO [facility] ED Note-Nursingon 03-20-2024 ED Note-Nursing PT. C/O back pain that started throughout the night and into this morning. PT. states that she woke up around 0545. Pt. does have urinary frequency. Pt. rates pain /. Pt. is A&OX . PT. has a steady gait. Normal [facility] ED Patient Summaryon 024 ED Patient Summary [facility] - Emergency Department [address] [place] [address] PATIENT DISCHARGE INSTRUCTIONS Patient Information Name: LIA DESAI Age: 23 Years Date of : 2000 Reason For Visit: Back pain; LOW BACK PAIN Arrival Time: 03/20/2024 06:28:58 Primary Care Physician: Provider, Unlisted Attending Physician: Oneil Littlejohn DO Comment: Visit Diagnosis: Diagnoses This Visit Acute abdominal pain in left flank (R10.9) Acute left-sided back pain (M54.9) Back pain ([id number]) Bacterial vaginosis (N76.0) Left flank pain (R10.9) Other specified bacterial agents as the cause of diseases classified elsewhere (B96.89) The Pharmacy at [facility] is open Saturday through Saturday from [...] alcohol and/or drug addiction problems; contact the [facility] 29/10 Crisis Hotline -Text 3UYFV vh [id number]. If you received any narcotics, sedation, or [...] and treatment you received today in the [facility] Emergency Department were for an urgent problem and are not intended as complete care. It is important for you to follow up with a doctor, nurse practitioner, or physician?s language assistant for ongoing care. If your symptoms [...] so we can reach you if necessary. [facility] Emergency Department has provided you with a complete list of medications post discharge. Please inform your steersman/provider of your visit and for further instruction on these medications. Any specific questions regarding your chronic medications and dosages should be discussed with your primary care physician(s) and/or pharmacist. New Medications [facility] [address] [place], [place] [id number], [phone] metroNIDAZOLE topical (metroNIDAZOLE 0.75% vaginal gel with applicator) 1 jamel Vaginal once. Refills: 0. Additional medications on your home medication list not specifically addressed. Please contact the ordering physician if you have questions about these medications. sodium chloride nasal (Guy Saline Mist 0.65% nasal spray) 2 spray(s) [...] Vaginosis (Inser (more content not included)... Normal [facility] Lipaseon 03-20-2024 Lipase Level 27.0 IU/L Normal 22.0-51.0 [facility] Comment on above: Performed By: #### 1 [id number], 3112885, 7932249, 61021548 ####[facility] (DEFAULT)[address] [place] [address] 64258 Test Urine 1 U Preg Negative [facility] Comment on above: Performed By: #### 5 [id number], [id number], [id number], [id number] ####[facility] (DEFAULT)[address] [place] [address] 89248 U Preg Internal Control Pass [facility] Comment on above: Performed By: #### 5 [id number], [id number], [id number], [id number] ####[facility] (DEFAULT)[address] [place] [address] 06560 Triage Panel 03-20-2024 Triage Internal Control Pass [facility] Comment on above: Performed By: #### 5 [id number], [id number], [id number], [id number] ####[facility] (DEFAULT)[address] [place] [address] 58104 U Amph Scr Negative [facility] Comment on above: Performed By: #### 5 [id number], [id number], [id number], [id number] ####[facility] (DEFAULT)[address] [place] [address] 21259 U Deirdre Scr Negative [facility] Comment on above: Performed By: #### 5 [id number], [id number], [id number], [id number] ####[facility] (DEFAULT)[address] [place] [address] 88890 U Benzodia Scr Negative Normal [facility] Comment on above: Performed By: #### 5 [id number], [id number], [id number], [id number] ####[facility] (DEFAULT)[address] [place] [address] 25610 U Cannab Scrn Positive Normal [facility] Comment on above: Performed By: #### 5 [id number], [id number], [id number], [id number] ####[facility] (DEFAULT)[address] [place] [address] 55713 U Cocaine Scr Negative [facility] Comment on above: Performed By: #### 5 [id number], [id number], [id number], [id number] ####[facility] (DEFAULT)[address] [place] [address] 14079 U Methadone Scr Negative Normal [facility] Comment on above: Performed By: #### 5 [id number], [id number], [id number], [id number] ####[facility] (DEFAULT)[address] [place] [address] 52881 U Methamp Scrn Negative [facility] Comment on above: Performed By: #### 5 [id number], [id number], [id number], [id number] ####[facility] (DEFAULT)[address] [place] [address] 97516 U Opiate Scr Negative [facility] Comment on above: Performed By: #### 5 [id number], [id number], [id number], [id number] ####[facility] (DEFAULT)[address] [place] [address] 92908 U Oxycod Scr Negative [facility] Comment on above: Performed By: #### 5 [id number], [id number], [id number], [id number] ####[facility] (DEFAULT)[address] [place] [address] 71149 U Phencyclidine Scr Negative Normal [facility] Comment on above: Performed By: #### 5 [id number], [id number], [id number], [id number] ####[facility] (DEFAULT)[address] [place] [address] U Tricyclic Antidepress Scr Negative Normal [facility] Comment on above: Result Comment: Resu lts [...] PPX Propoxyphene (Norpropoxyphene): 300 ng/mL THC Cannabinoids (91-nbu-3-carboxy- -THC): 50 ng/mL TCA Tricyclic-Antidepressants (Desipramine): 300 ng/mL Performed By: #### 5 [id number], [id number], [id number], [id number] ####[facility] (DEFAULT)[address] [place] [address] UA [id number] 03-20-2024 UA Bacteria Rare [facility] Comment on above: Order Comment: Urina lysis Microscopic order added on by Method Expert Rules system. Performed By: #### 5 [id number], [id number], [id number], [id number] ####[facility] (DEFAULT)[address] [place] [address] UA Comment. Clue Cells Seen [facility] Comment on above: Order Comment: Urina lysis Microscopic order added on by Method Expert Rules system. Performed By: #### 5 [id number], [id number], [id number], [id number] ####[facility] (DEFAULT)[address] [place] [address] UA Mucous Trace [facility] Comment on above: Order Comment: Urina lysis Microscopic order added on by Discern Expert Rules system. Performed By: #### 5 [id number], [id number], [id number], [id number] ####[facility] (DEFAULT)[address] [place] [address] UA RBC >50 [facility] Comment on above: Order Comment: Urina lysis Microscopic order added on by Discern Expert Rules system. Performed By: #### 5 [id number], [id number], [id number], [id number] ####[facility] (DEFAULT)[address] [place] [address] UA Squam Epi Moderate [facility] Comment on above: Order Comment: Urina lysis Microscopic order added on by Discern Expert Rules system. Performed By: #### 5 [id number], [id number], [id number], [id number] ####[facility] (DEFAULT)[address] [place] [address] UA WBC 5-10 [facility] Comment on above: Order Comment: Urina lysis Microscopic order added on by Method Expert Rules system. Performed By: #### 5 [id number], [id number], [id number], [id number] ####[facility] (DEFAULT)[address] [place] [address] UA w Culture if Ind Standard on 03-20-2024 Color (U) Yellow [facility] Comment on above: Performed By: #### 5 [id number], [id number], [id number], [id number] ####[facility] (DEFAULT)[address] [place] [address] Culture? Indicated Invalid Interpretation Code [facility] Comment on above: Result Comment: Resu lt created by rule GL_MAGR_ADD_UA_CULT Result created by rule GL_MAGR_ADD_UA_CULT Result created by rule GL_MAGR_ADD_UA_CULT1 Result created by rule GL_MAGR_ADD_UA_CULT Performed By: #### 5 [id number], [id number], [id number], [id number] ####[facility] (DEFAULT)[address] [place] [address] Glucose (U) [Mass/Vol] Negative Normal [facility] Comment on above: Performed By: #### 5 [id number], [id number], [id number], [id number] ####[facility] (DEFAULT)[address] [place] [address] Ketones Ql (U) Negative Normal [facility] Comment on above: Performed By: #### 5 [id number], [id number], [id number], [id number] ####[facility] (DEFAULT)[address] [place] [address] Micro? Indicated Invalid Interpretation Code [facility] Comment on above: Result Comment: Resu lt created by rule GL_MAGR_ADD_UA_MICRO Performed By: #### 5 [id number], [id number], [id number], [id number] ####[facility] (DEFAULT)[address] [place] [address] UA Bilirubin SMALL Abnormal [facility] Comment on above: Performed By: #### 5 [id number], [id number], [id number], [id number] ####[facility] (DEFAULT)[address] [place] [address] UA Blood LARGE Abnormal NEGATIVE [facility] Comment on above: Performed By: #### 5 [id number], [id number], [id number], [id number] ####[facility] (DEFAULT)[address] [place] [address] UA Clarity SL CLOUDY Abnormal CLEAR [facility] Comment on above: Performed By: #### 5 [id number], [id number], [id number], [id number] ####[facility] (DEFAULT)[address] [place] [address] UA Leuk Est Negative Normal NEGATIVE [facility] Comment on above: Performed By: #### 5 [id number], [id number], [id number], [id number] ####[facility] (DEFAULT)[address] [place] [address] UA Nitrite Negative Normal NEGATIVE [facility] Comment on above: Performed By: #### 5 [id number], [id number], [id number], [id number] ####[facility] (DEFAULT)[address] [place] [address] UA pH 6.0 Normal 5-8 [facility] Comment on above: Performed By: #### 5 [id number], [id number], [id number], [id number] ####[facility] (DEFAULT)[address] [place] [address] UA Protein 30 Abnormal NEGATIVE [facility] Comment on above: Performed By: #### 5 [id number], [id number], [id number], [id number] ####[facility] (DEFAULT)[address] [place] [address] UA Spec Grav >=1.030 Normal 1.001-1.035 [facility] Comment on above: Performed By: #### 5 [id number], [id number], [id number], [id number] ####[facility] (DEFAULT)[address] [place] [address] UA Urobilinogen 0.2 mg/dL Normal 0.2-1.0 [facility] Comment on above: Performed By: #### 5 [id number], [id number], [id number], [id number] ####[facility] (DEFAULT)[address] [place] [address] Urine Source Clean Catch Normal [facility] Comment on above: Performed By: #### 5 [id number], [id number], [id number], [id number] ####[facility] (DEFAULT)[address] [place] [address] Breakpoint UA Normal [facility] Comment on above: Performed By: #### 5 [id number], [id number], [id number], [id number] ####[facility] (DEFAULT)[address] [place] [address] Coding Summaryon 02-11-2024 Coding Summary HTMLBase 64 NsbcwriwFFl8kFx+PGhlY WQ+DB4PAOHyE77hmJNneR 9hP6MWAAqULpgvSSGRGDi BVoVoioAlXN1xaGEdKZQx IC8+UA7mUFMtVmknzEHbn 9Q9mRG7K00wvq7iOMuakI Q7LMChReQrnmvip6jszYh 6IDcuNmluOyBt ADImuH02NJY5rY26Ge78a QWfxNQln7qaqMb1KpKqSS IeEFB0zAauVApvl6YbIAU eP62exETvl9T2 PEFnfGsntCJlJjKhkDD0f N8mFOxwxklek9zoxzljRq s4mc41dKPqh9L6yPP2T2J fucS8ZMHiiUTh KkvscWOPoD5oarkad3vjg xqxEbJyNYCyRBu3KXu5ZR DjpAmfSnPbOV63PTQ1NJE cgfStQ6SxPWTs xTjwTbI3b0L5Fr7YQ1PYW pftZ5YMORDYDCrgrWJ+PC 22ti84B1FbErxcFak3KXT iLWH2sUJ1kQ1o WLDzSJuck7T5tLR3Y1Otk iRwsc4uh5faPOMyQUubD9 3anEYdm7E2XWBctTE9ILX ueGxeSdNpsQ69 Oyc+YDEtaLuxl1NuAnqwz 2xdt5rdpYr6LhxdNOFrct WrfMigJDG2r9LjFs5zINL hrED2fMR9bB1y FyXoMrE7KIoiC265JxAix TYhYbrnW33sU9OgkUM+PH WeHhe5KFHplWqqQF2sR7D hZGRpbmctbGVm vOtvUT3aGNTghffaGWVti B5bXAMgK4b7EtAzXtG5CM spX5KmMESdvdbkUh47sN9 uJyEvIpB9VDke B5DonpY3EMYetZPyNXfpP CA5H58so0F6SAZzIJIlTD D9rDO8eL1gkPoispkcrMM mdDsgdmVydGlj IRuwOFtgO413BDKghVvlN kNvZGluZyBEYXRlOiAgMT EvMDUvMjAyNDwvdGQ+PHR tACS7zBybXBIy eLZaCMftVu7ciPqnrIzeZ B0yAFLsdfbhSNLnhK4rDS IyfQQsvXbiIY8nAJAfwtw ry420YhUdDFY9 XZAjaFXvX3JpyD5eLfGnQ THbHSHtX4PnmAAlSKieB4 22LWruTqN8NFCawdFtW6O sLWFsaWduOiB0 g2X4Vc6Jb7TjrlmoB3Hnq DZcNoQjQntfSPc0R7LpOd wvdHI+ZX37BHDrVF00IBd 6FQT9qNolLKda VNObX9QkcG2qQsEcLSGyA GRkOyc+PHRhYmxlIHdpZH RoPScxMDAlJyBzdHlsZT0 yOw5fDOQbPRNk bOoddXRbVvPny3icZIFmT UqkUM1iuAfcU6HbaCW5HE Tzx3g7Ae90N65bJ6CkdIT +VRPkjGN6zFK9 oR7gJrNdAzC4SImoN356W pBnmCMtIvilq1gxo4hahN x8BkS7ABPvicGoaQwxKZE 9g1VnWq33A89u IHdpZHRoPSIxNSUiIHZhb Xpvte8ecR0jNs7+PGNvbC C0wEW3kT8oVuAgSkN1PMt pF821MzPqjCZf Nesmq6cev4yunEa7StAlP TXfnsMqwOivTQD9y0OfMm 24Y2ZtbRvqf2HaAdx9wk0 0kFMga2P1rXW7 U5OsPYBqlmqmyIQopJwsW S9uLTOljwxiLMAybI9qDA ElD1t4CpKyHhC0MVwrM3T zbnV8LYIjnEAf XRPqtGVAlK2sdubhu9mil xobLbShCDVfTIv0HPr3CP CztVscArYuYDO6AcW6TXY 6uWGujK8bfMll dezzsQ0iXmt+HKK6jQLzn KCJCX7vKbzieHH+PHRkIH P0eYgxZZveLZLucI5jSCM hM1u3CtHhFzV9 GQmwG8RelaB0WJXhxOTmE QLfjSYNuW9zmsjcr0zxef xaCcGxQRDjBUy4LTk2DOK saWduOiBsZWZ0 JmM5UOK2aUHxuE9oqDuks podrK5eVrk+QmlydGggRG D4YKe0J8GpMxp3RVLfwZg oEN0roILbDCjg Or6nzQnttYebIQ2xNYQiq cxyb859NhAdb0zjLHFjcX YtJBihOTX6Q88uv3C9JHD aRPBfZEG7yKS6 lH6mcOsdxqvcoUXhkLlss lJgpBffRFlbCBpeL484ZS VjsEblKjRkVRz6G3QgBqe 5EROgrLxoRO3a zWKrPUjjZp9zcKgvdWvlP M0tEQKfaihre956MxIcf9 nnQWGvlPZqXWwjNDG1F57 tn4S4GRHoFXDm HHG7nKQ3dJ6zqBonrqcae GVmdDsgdmVydGljYWwtYW wxL129UZOsjIwgJzZazIg 4Z0HpAgt9OONm qBvlMB2cnCZyMGpyZi0gb BfnwDarBL0oIKRciroqf3 67IwSqv2rtJQPolIZlVFa mJEN1P41pg6A1 ANAgSJAiZZS8jUO5yB5yl GlnbjogbGVmdDsgdmVydG hxVMwgMQkqG675CJDkrFq nPlBhdGllbnQg DEmjYHv6W7XaIqtniUW+P W63YZSdTE90cSEikCQlq7 acvGq4ViHjLYNyKQK4jEm yOKndv5HrXNRg D55sqWRca7E3BFGouDnwe OEsHyYbhHB4aM9fEYajkj zpg8ycmuxoDyxez0iien8 8cF18V60ySWug ZHRoPSIzMCUiIHZhbGlnb k5dfT2qMy6+BSEppEZ0fH N1yI1oSTXyXpI6HQrjO81 9InRvcCIvPjxj m6nrt3rzoEb1AiE8RWHko cYoyAfiRHG0l8CiFj03X2 9sIHdpZHRoPSIyMCUiIHZ flOsagk4bbQ5z Ii8+UVHovYU1fIW7wW5nO lMyUfU8XAjdW691EkYivN FfNprtE17tZ8PoyEZ+PHR hKnh8KJWtjMby SU6dsUXgFIwuEn5vUAM5W hEkXoZsWMdcV4AlGBPacb nwukjsaPM4KIPiPGVvlA4 3Qf9ajZwtZZYx mIWWcS7lilest6syreyqF wHxZWPzZFq2HUy7GWHylO erTfPdVXL6NsT5QFD7kIK ezX2izDwwpktz cI3oA9AxENIrbdboZh96t X5nGgJnFjW9HFmyKja+R0 sRMhVBAOjtE3rRITROFYr JZD6YKTthbFS+ TBQmHZO1lPvmXQfdLHJwd P9fLDZsO3a1DyIhLjY2LR gsY3RmEGQnuurxWc23bH5 kGxScYnX7NMyw G0MzdkX5MENdiGZuBHvjL BH4U23pv2Y0UYXpSBYhSK A8mYI9cT6gzPnopzuqhQM mdDsgdmVydGlj FGwyIIalE523BPAvvDjdH yH1UvMqSmJvISM6Y9EfMz u0KBLqeSruUM0fgJWdLEa dCh4fpVkskGvo IW9uIVUgyacbXMIxpH8vN SVyuMJkeAjgUN8yLTUyur fac618MaYjJCE8WHYeaLA oL5JrcP5xSiSr XXZpZJJfW2BdrMBuVBgfM 975YOjeYtV1EWJwqhMgB9 LqIXQorOuzOuT1t9C8Xz1 yMiBZZWFyczwv dGQ+VLMoWIZ1tBwzWWqfW MJrdH0oMJAfC6z1DxMtHu R5DWtpZ7DcKVCqbvkmUp8 8oS3aDrFgLdW1 AUdgB7FfudD9BQCxvDXtF BgyYBI4S22qp7X7TUJaWF NwPZG1oGT7wB7qnRjjfcg gbGVmdDsgdmVy xYgiWFrqIUrtW171RDZby DsnPkZFTUFMRTwvdGQ+PH WfUKU9jSeuJWjbXVOmyQ1 uAOLhP9j3KcQs VaH4VKzrT1KdTKWiocdtB c66bU3qLlIgWdT5AXvmK7 QumrU3FDDnjCAuNTqeRRA 1E78fe1M5PYBq VZLyGYP0bLI1jA0cdJxhg jogbGVmdDsgdmVydGljYW dkMJrsQ058VUSnlCleQq9 ZYJ34DK64C1Dr PjwvdGFibGU+PHRhYmxlI HdpZHRoPScxMDAlJyBzdH smKL4fWc2lDBDvOTSnmLi vxDBnTtCna1qm OPGzQUtwLX1zxOgxU6Tza WM3WNPbe1l6Xi86P83pN6 JvdXA+OCYqvYE9qLS9nD6 jHrMgBfP5DAfk Y579DqVjkVRfDftdv7zbi 5nodUu6NyXaMIUtcsOqeA ruQFX6p6KkQh33D98cDGf pZHRoPSIyMCUi VXDupJtdxl3onE9zHm3+P OXthIS8dFO3uP4oOsYsXb N5TSpfZ456NrPjiCZgCaz xZ04yO2ZudUE+ JPAfJrc5YKQnzVmcTG0st BJbLVkhLy8aSQC9TuGnUb ObUElfD9OsPXIzlzylwev zfYY3NJUoIWPj bC61Jg6haTpdMn6nMHNwI FI5GRMkdMEmA6HlpM1iHe TsTYMsKKSeL0KpxYMcHDm oY949XQtoEtO3 XPLcprThL8OkNANjnVjwF iB3i1C7Qn5XcZqcmGDwPV 5aQyTfFZb0L2KwKhf0DIJ enDgtMV1yqQZo NRojLh1isGnfgWcwRR9vL IZvcngsa222LgLec1vhPY MrbANlZZieQKE9S14sx8R 8UQQtSORdXCH0 gYH2eK4aqQvnztyzzAEzx DsgdmVydGljYWwtYWxpZ2 58TJPleIgqUnTXRvl9V1Y gPte9UMIewCws DL0hrHYlYKbaRw5rsMtxa JzhSD6eLSFpmenhu865Lf Fvl7ctDWSirHEaGVjmRVE 7Q80kg9H8ZFFn VUByFZT6lIR3wA0qdMzch jogbGVmdDsgdmVydGljYW koKSusT230OHSbpGhsCa7 UTfe6O4QaQhu9 UNUhrXtsWG7zgLOlDEwsP q3azHndfDynBU9mMWDskg hyd304NjBdz7vgYBTgvCW gSSnyUDL7U95u r4F4GXRnYRMdFRF9pQT3b B7raRffoxfsbZHrfRxgkn JdvDhoOAbkXYivZ973RUW vcDsnPlBheWVy OjwvdGQ+SJ05fm48C2PlN gylTeo0FYDiUSW4eHN9mP 9lADAaCWgcp5F2vAW8D5C adsQjmz3qf0qd YXB (more content not included)... Normal [facility] C Throaton 01-30-2024 C Throat Ordered by Discern. Normal throat jonny isolated No pathogens isolated Normal [facility] Comment on above: Performed By: #### 4 [id number] #### [facility] (DEFAULT) [address] [place] [address] ED Clinical Summaryon 2023 ED Clinical Summary [facility] ? Urgent Care [address] [place] [address] Clinical Summary PERSON INFORMATION Name: LIA DESAI Age: 23 Years Sex: FEMALE : 2000 MRN: Acct#: Visit Reason: Body aches; UC - Sore Throat; Earache; Cough; Throat pain - Adult; CONGESTION, BRYAN EAR PAIN, SORE THROAT, BODY ACHES Arrival: 01/28/2024 11:07:11 Discharge: 01/28/2024 12:39:00 LOS: 000 01:32 Check In: 01/28/2024 11:07:11 Checkout: 01/28/2024 12:39:00 Address: [address] [place] [address] PCP: ROBERT MARRERO PROVIDER INFORMATION Provider Role Assigned Unassigned Errol Ortega ED PA 01/28/2024 11:10:09 Corrina Grant DIANETIC COUNSELOR Nurse 01/28/2024 11:19:17 VITALS INFORMATION Vital Sign [...] With: Address: When: ROBERT MARRERO [address] [place] [address] Business (1) Within 5 to [...] verbalizes understanding of instructions given Comment: Normal [facility] ED Patient Summaryon 024 ED Patient Summary [facility] ? Urgent Care [address] [place] [address] PATIENT DISCHARGE INSTRUCTIONS Patient Information Name: LIA DESAI Age: 23 Years Date of : 2000 Reason For Visit: Body aches; UC - Sore Throat; Earache; Cough; Throat pain - Adult; CONGESTION, BRYAN EAR PAIN, SORE THROAT, BODY ACHES Arrival Time: 01/28/2024 11:07:11 Primary Care Physician: ROBERT MARRERO Attending Physician: Errol Ortega Comment: Patient Education With: Address: When: ROBERT MARRERO [address] [place] [address] [employer] (1) Within 5 to 7 days Comments: [...] to help relieve symptoms, such as: ? Cvms-voa-gcstbfo cold medicines. ? Cough suppressants. Coughing is [...] other clear broths. General instructions ? Take sevp-nxb-pzwzwds and prescription medicines only as told by [...] and water are not available, use hand oven baker. ? Avoid touching your mouth, face, eyes, or nose. ? Cough or sneeze into a tissue or your sleeve or elbow instead of into your hand or into the air. Contact a health care provider if: ? Y (more content not included)... [facility] POCT Rapid CoV-2 (COVID-19) Antigen/ Flu A&Bon 01-28-2024 Influenza A POCT Negative Normal [facility] Comment on above: Performed By: #### 9 [id number] #### [facility] (DEFAULT) [address] [place] [address] Influenza B POCT Negative Normal Negative [facility] Comment on above: Performed By: #### 9 [id number] #### [facility] (DEFAULT) [address] [place] [address] SARS-CoV-2 (COVID-19) RNA MILY+probe Ql (Unsp spec) Not detected [facility] Comment on above: Performed By: #### 9 [id number] #### [facility] (DEFAULT) [address] [place] [address] Strep Aon 01-28-2024 Strep procedure control Pass [facility] Comment on above: Performed By: #### 4 [id number] #### [facility] (DEFAULT) [address] [place] [address] Streptococcus A Negative Normal Negative [facility] Comment on above: Performed By: #### 4 [id number] #### [facility] (DEFAULT) [address] [place] [address] Urgent Care Note- Provideron 01-28-2024 Urgent Care [...] Resolved Disease caused by 2019 novel coronavirus ([id number]): Onset on 11/23/2020 at 20 years. Resolved. Comments: 11/23/2020 CDT 16:07 CDT - SYSTEM Problem added by Rule (IC_COVID19_AUTO_PROB CAMI) following 2019 Novel Coronavirus (CoVID-19), MILY L from Nasopharyngeal Swab collected on 22-NOV-2020 16:44:00 EDT tested positive for COVID-19. no history (518481752): Resolved. Contact dermatitis (59222602): Resolved. Pharyngitis (7463645341): Resolved. Cough (13037221): Resolved.. Surgical history: Tonsillectomy and adenoidectomy (589755354).. Family history: No family history items have [...] uvula s (more content not included)... Normal [facility] 024 Urgent Care Record [facility] ? Urgent Care [address] [place] [address] PATIENT DISCHARGE INSTRUCTIONS Patient Information Name: LIA DESAI Age: 23 Years Date of : 2000 Reason For Visit: Body aches; UC - Sore Throat; Earache; Cough; Throat pain - Adult; CONGESTION, BRYAN EAR PAIN, SORE THROAT, BODY ACHES Arrival Time: 01/28/2024 11:07:11 Primary Care Physician: ROBERT MARRERO Attending Physician: Errol Ortega Comment: Visit Diagnosis: Diagnoses This Visit Acute URI (J06.9) Body aches ([id number]) Cough ([id number]) Earache ([id number]) Throat pain - Adult ([id number]) UC - Sore Throat ([id number]) If you received any narcotics, sedation, or [...] documents With: Address: When: ROBERT MARRERO [address] [place] [address] Business (1) Within 5 to 7 days Comments: Viral upper respiratory illness. mother. Contagious 72 hours from onset Strep, Covid, Flu negative. Vitals good today. Begin Mucinex 600mg 1 po BID x 7 days. Begin Saline nasal spray Consider humidifier or Vics salve. Return if worse in any way. Medication Information: The exam and treatment you received today in the [facility] were for an urgent problem and are not intended as complete care. It is important for you to follow up with a doctor, nurse practitioner, or physician?s language assistant for ongoing care. If your symptoms [...] so we can reach you if necessary. [facility] has provided you with a complete list of medications post discharge. Please inform your steersman/provider of your visit and for further instruction on these medications. Any specific questions regarding your chronic medications and dosages should be discussed with your primary care physician(s) and/or pharmacist. New Medications [facility], [address], [place] [id number], [phone] guaiFENesin (Mucinex 600 mg oral tablet, extended release) 1 tab(s) Oral (given by mouth) Every 12 hours scheduled time as needed congestion for 10 Days. Refills: 0. sodium chloride nasal (Guy Saline Mist 0.65% nasal spray) 2 spray(s) [...] very old. (more content not included)... Normal [facility] ALL CBC WITH AUTO DIFFon BASOPHILS ABSOLUTE AUTO 0.1 [facility] Basophils/100 WBC (Bld) 0.5 % 0.2 - 2.0 % [facility] Eosinophils/100 WBC (Bld) 0.8 % Low 0.9 - 7.0 % [facility] Erythrocyte distribution width (RBC) [Ratio] 13.3 % 11.0 - 15.0 % [facility] Hematocrit (Bld) [Volume fraction] 31.5 % Low 36.0 - 48.0 % [facility] Hemoglobin (Bld) [Mass/Vol] 10.0 g/dL Low 12.0 - 16.0 g/dL [facility] IMMATURE GRANULOCYTES ABS AUTO 0.19 High [facility] Immature granulocytes/100 WBC (Bld) 1.3 % High 0.0 - 0.5 % [facility] Interpretation and review of laboratory results Abnormal [facility] LYMPHOCYTES ABSOLUTE AUTO 4.0 High [facility] Lymphocytes/100 WBC (Bld) 27.7 % 20.5 - 60.0 % [facility] MCH (RBC) [Entitic mass] 26.5 pg Low 26.7 - 34.0 pg [facility] MCHC (RBC) [Mass/Vol] 31.7 g/dL 29.9 - 35.2 g/dL [facility] MCV (RBC) [Entitic vol] 83.6 fL 81.0 - 99.0 fL [facility] MONOCYTES ABSOLUTE AUTO 1.4 High [facility] Monocytes/100 WBC (Bld) 9.6 % 1.7 - 12.0 % [facility] NEUTROPHILS ABSOLUTE AUTO 8.6 High [facility] Neutrophils/100 WBC (Bld) 60.1 % 43.0 - 75.0 % [facility] Platelet mean volume (Bld) [Entitic vol] 10.2 fL 9.5 - 13.5 fL [facility] TBH EO # 0.1 [facility]H PLT 323 [facility] TB RBC 3.77 Low [facility] TB WBC 14.3 High [facility] HMHP CBC WITH PLATELET NO DI FFERENTIALon 12-04-2023 Erythrocyte distribution width (RBC) [Ratio] 12.9 % 11.0 - 15.0 % [facility] Hematocrit (Bld) [Volume fraction] 36.4 % 36.0 - 48.0 % [facility] Hemoglobin (Bld) [Mass/Vol] 11.8 g/dL Low 12.0 - 16.0 g/dL [facility] Interpretation and review of laboratory results Abnormal [facility] MCH (RBC) [Entitic mass] 26.9 pg 26.7 - 34.0 pg [facility] MCHC (RBC) [Mass/Vol] 32.4 g/dL 29.9 - 35.2 g/dL [facility] [place] MCV (RBC) [Entitic vol] 82.9 fL 81.0 - 99.0 fL [facility] [place] Platelet mean volume (Bld) [Entitic vol] 10.1 fL 9.5 - 13.5 fL [facility] TBH PLT 423 [facility] [place] TB [facility] 4[facility]39 [facility] W[facility] 14.6 High [facility] [place] [facility] [place] Cytology Cervical or vaginal smear or scraping studyon 07-01-2023 [facility] [place] ALL CBC WITH AUTO DIFFon BASOPHILS ABSOLUTE AUTO 0.0 [facility] [place] Basophils/100 WBC (Bld) 0.3 % 0.2 - 2.0 % [facility] [place] Eosinophils/100 WBC (Bld) 0.5 % Low 0.9 - 7.0 % [facility] [place] Erythrocyte distribution width (RBC) [Ratio] 12.2 % 11.0 - 15.0 % [facility] [place] Hematocrit (Bld) [Volume fraction] 38.6 % 36.0 - 48.0 % [facility] [place] Hemoglobin (Bld) [Mass/Vol] 12.3 g/dL 12.0 - 16.0 g/dL [facility] [place] IMMATURE GRANULOCYTES ABS AUTO 0.02 [facility] [place] Immature granulocytes/100 WBC (Bld) 0.2 % 0.0 - 0.5 % [facility] [place] Interpretation and review of laboratory results Abnormal [facility] LYMPHOCYTES ABSOLUTE AUTO 3.1 [facility] [place] Lymphocytes/100 WBC (Bld) 32.8 % 20.5 - 60.0 % [facility] [place] MCH (RBC) [Entitic mass] 28.6 pg 26.7 - 34.0 pg [facility] [place] MCHC (RBC) [Mass/Vol] 31.9 g/dL 29.9 - 35.2 g/dL [facility] [place] MCV (RBC) [Entitic vol] 89.8 fL 81.0 - 99.0 fL [facility] [place] MONOCYTES ABSOLUTE AUTO 0.7 [facility] [place] Monocytes/100 WBC (Bld) 7.7 % 1.7 - 12.0 % [facility] [place] NEUTROPHILS ABSOLUTE AUTO 5.4 [facility] [place] Neutrophils/100 WBC (Bld) 58.5 % 43.0 - 75.0 % [facility] [place] Platelet mean volume (Bld) [Entitic vol] 10.7 fL 9.5 - 13.5 fL [facility] EO # 0.1 [facility] [place] TB PLT 211 [facility] RBC 4.30 [facility] WBC 9.3 [facility] [place] [facility] [place] US PREG TVon 08-08-2022 US PREG TV [...] by: CHRISTIAN HOPE Date: 2022-08-08 16:56 Normal [facility] US PELVIS AND TRANSVAGon US [...] ANGELA SCOTT Date: 2022-06-04 06:57 Normal [facility] US PREG TVon 05-16-2022 US [...] CHRISTIAN HOPE Date: 2022-05-16 18:15 Normal [facility] HEP B SURFACE ANTIGEN SCREEN on 04-20-2022 HBsAg Screen Negative Normal Negative [facility] Comment on above: Performed By: #### H BSANS #### [facility] [address] [place] [address] Dr. Jeronimo Melgar HEPATITIS C VIRUS AB W/ REFL EX QUANTon 04-20-2022 HCV AB <0.1 Normal 0.0-0.9 [facility] Comment on above: Performed By: #### H CVPCRR #### [facility] [address] [place] [address] Dr. Jeronimo Melgar Interpretation: Comment Normal [facility] Comment on above: Result Comment: Nega tive Not infected with HCV, unless recent infection is suspected or other evidence exists to indicate HCV infection. Performed By: #### H CVPCRR #### [facility] [address] [place] [address] Dr. Jeronimo Melgar HIV 1 AND 2 WITH REFLEXon HIV Screen 4th Generation wRfx Non-Reactive Normal Non Reactive [facility] Comment on above: Result Comment: HIV Negative HIV-1/HIV-2 antibodies and HIV-1 p24 antigen were NOT detected. There is no laboratory evidence of HIV infection. Performed By: #### H IV12 #### [facility] [address] [place] [address] Dr. Jeronimo Melgar RPR QUANTon 04-20-2022 Rapid Plasma Reagin, Quant Non-Reactive Normal NonRea<1:1 [facility] Comment on above: Result Comment: Plea se Note: This test does not meet current guidelines for screening and diagnosis of syphilis. This test is intended for following treatment response in patients being treated for syphilis infection. To screen for syphilis infection, a reflex cascade that includes both RPR and a treponema-specific assay should be utilized, such as Treponema pallidum (Syphilis) Screening [place] ([id number]) or Rapid Plasma Reagin (RPR) Test With Reflex to Quantitative RPR and Confirmatory Treponema pallidum Antibodies ([id number]). Performed By: #### R PRQ #### [facility] [address] [place] [address] Dr. Jeronimo Melgar RUBELLA AB IGGon 04-20-2022 Rubella Antibodies, IgG 1.85 index Normal Immune >0.99 [facility] Comment on above: Result Comment: Non- immune <0.90 Equivocal 0.90 - 0.99 Immune >0.99 Performed By: #### B OX #### [facility] [address] [place] [address] Dr. Jeronimo Melgar BOX TEST SENT OUTon 04-19-19 23 SENT TO REF LAB 04/19/2022 Normal [facility] Comment on above: Performed By: #### B OX #### [facility] [address] [place] [address] Dr. Jeronimo Melgar CBC AUTO DIFFon 04-19-2022 BASO # 0.1 103/ul Normal 0.0-0.1 [facility] Comment on above: Performed By: #### B OX #### [facility] [address] [place] [address] Dr. Jeronimo Melgar Basophils/100 WBC (Bld) 0.5 % Normal 0.2-2.0 [facility] Comment on above: Performed By: #### B OX #### [facility] [address] [place] [address] Dr. Jeronimo Melgar EO # 0.1 103/ul Normal 0.0-0.7 [facility] Comment on above: Performed By: #### B OX #### [facility] [address] [place] [address] Dr. Jeronimo Melgar Eosinophils/100 WBC (Bld) 0.7 % Critically low 0.9-7.0 [facility] Comment on above: Performed By: #### B OX #### [facility] [address] [place] [address] Dr. Jeronimo Melgar Erythrocyte distribution width (RBC) [Ratio] 12.8 % Normal 11.0-15.0 [facility] Comment on above: Performed By: #### B OX #### [facility] [address] [place] [address] Dr. Jeronimo Melgar Hematocrit (Bld) [Volume fraction] 43.7 % Normal 36.0-48.0 [facility] Comment on above: Performed By: #### B OX #### [facility] [address] [place] [address] Dr. Jeronimo Melgar Hemoglobin (Bld) [Mass/Vol] 13.1 g/dL Normal 12.0-16.0 [facility] Comment on above: Performed By: #### B OX #### [facility] [address] [place] [address] Dr. Jeronimo Melgar IG # 0.02 10e3/ul Normal 0.00-0.03 [facility] Comment on above: Performed By: #### B OX #### [facility] [address] [place] [address] Dr. Jeronimo Melgar IG % 0.2 % Normal 0.0-0.5 [facility] Comment on above: Performed By: #### B OX #### [facility] [address] [place] [address] Dr. Jeronimo Melgar LYMPH # 2.6 103/ul Normal 1.2-3.8 [facility] Comment on above: Performed By: #### B OX #### [facility] [address] [place] [address] Dr. Jeronimo Melgar Lymphocytes/100 WBC (Bld) 27.3 % Normal 20.5-60.0 [facility] Comment on above: Performed By: #### B OX #### [facility] [address] [place] [address] Dr. Jeronimo Melgar MANUAL DIFF REQ NO Normal [facility] Comment on above: Performed By: #### B OX #### [facility] [address] [place] [address] Dr. Jeronimo Melgar MCH (RBC) [Entitic mass] 27.7 pg Normal 26.7-34.0 [facility] Comment on above: Performed By: #### B OX #### [facility] [address] [place] [address] Dr. Jeronimo Melgar MCHC (RBC) [Mass/Vol] 30.0 g/dL Normal 29.9-35.2 [facility] Comment on above: Performed By: #### B OX #### [facility] [address] [place] [address] Dr. Jeronimo Melgar MCV (RBC) [Entitic vol] 92.4 fL Normal 81.0-99.0 [facility] Comment on above: Performed By: #### B OX #### [facility] [address] [place] [address] Dr. Jeronimo Melgar MONO # 0.8 103/ul Normal 0.3-0.8 [facility] Comment on above: Performed By: #### B OX #### [facility] [address] [place] [address] Dr. Jeronimo Melgar Monocytes/100 WBC (Bld) 7.8 % Normal 1.7-12.0 [facility] Comment on above: Performed By: #### B OX #### [facility] [address] [place] [address] Dr. Jeronimo Melgar NEUT # 6.1 103/ul Normal 1.4-6.5 [facility] Comment on above: Performed By: #### B OX #### [facility] [address] [place] [address] Dr. Jeronimo Melgar Neutrophils/100 WBC (Bld) 63.5 % Normal 43.0-75.0 [facility] Comment on above: Performed By: #### B OX #### [facility] [address] [place] [address] Dr. Jeronimo Melgar Platelet mean volume (Bld) [Entitic vol] 10.7 fL Normal 9.5-13.5 [facility] Comment on above: Performed By: #### B OX #### [facility] [address] [place] [address] Dr. Jeronimo Melgar PLT 399 103/ul Normal 150-450 [facility] Comment on above: Performed By: #### B OX #### [facility] [address] [place] [address] Dr. Jeronimo Melgar RBC 4.73 106/ul Normal 4.20-5.40 [facility] Comment on above: Performed By: #### B OX #### [facility] [address] [place] [address] Dr. Jeronimo Melgar WBC 9.6 103/ul Normal 4.0-11.0 [facility] Comment on above: Performed By: #### B OX #### [facility] [address] [place] [address] Dr. Jeronimo Melgar CULTURE URINEon 04-19-2022 CULTURE URINE Culture Observations : LIGHT GROWTH OF MIXED GENITAL JONNY. NO POTENTIAL PATHOGENS SEEN. Normal [facility] Comment on above: Performed By: #### B OX #### [facility] [address] [place] [address] Dr. Jeronimo Melgar DRUG SCREEN RAPID (URINE)on 04-19-2022 AMP Negative Normal NEGATIVE [facility] Comment on above: Performed By: #### H IV12 #### [facility] [address] [place] [address] Dr. Jeronimo Melgar BAR Negative Normal NEGATIVE [facility] Comment on above: Performed By: #### H IV12 #### [facility] [address] [place] [address] Dr. Jeronimo Melgar BUP Negative Normal NEGATIVE [facility] Comment on above: Performed By: #### H IV12 #### [facility] [address] [address] [address] Jeronimo Melgar BZO Negative Normal NEGATIVE [facility] Comment on above: Performed By: #### H IV12 #### [facility] [address] [place] [address] Dr. Jeronimo Melgar KRISTINA Negative Normal NEGATIVE [facility] Comment on above: Performed By: #### H IV12 #### [facility] [address] [place] [address] Dr. Jeronimo Melgar CUT-OFFS SEE BELOW Normal [facility] Comment on above: Result [...] ng/mL Performed By: #### H IV12 #### [facility] [address] [place] [address] Dr. Jeronimo Melgar DRUG CUT HEADER DRUG CLASS TEST SYSTEM CUT-OFF CONCENTRATIONS ARE FOLLOWS: Normal [facility] Comment on above: Performed By: #### H IV12 #### [facility] [address] [place] [address] Dr. Jeronimo Melgar mAMP Negative Normal NEGATIVE [facility] Comment on above: Performed By: #### H IV12 #### [facility] [address] [place] [address] Dr. Jeronimo Melgar MTD Negative Normal NEGATIVE [facility] Comment on above: Performed By: #### H IV12 #### [facility] [address] [place] [address] Dr. Jeronimo Melgar OPI Negative Normal NEGATIVE [facility] Comment on above: Performed By: #### H IV12 #### [facility] [address] [address] [address] Jeronimo Melgar OXY Negative Normal NEGATIVE [facility] Comment on above: Performed By: #### H IV12 #### [facility] [address] [address] [address] Jeronimo Melgar PCP Negative Normal NEGATIVE [facility] Comment on above: Performed By: #### H IV12 #### [facility] [address] [address] [address] Jeronimo Melgar PPX Negative Normal NEGATIVE [facility] Comment on above: Performed By: #### H IV12 #### [facility] [address] [address] [address] Jeronimo Melgar TCA Negative Normal NEGATIVE [facility] Comment on above: Performed By: #### H IV12 #### [facility] [address] [address] [address] Jeronimo Melgar THC Negative Normal NEGATIVE [facility] Comment on above: Performed By: #### H IV12 #### [facility] [address] [place] [address] Dr. Jeronimo Melgar GLYCOHEMOGLOBIN A1Con 2022 ADA RECOMMENDATION SEE BELOW Normal [facility] Comment on above: Result Comment: ADA RECOMMENDED LIMIT 4.0 - 6.0 ADA THERAPEUTIC TARGET < 7.0 ACTION SUGGESTED > 7.0 Performed By: #### A 1C #### [facility] [address] [place] [address] Dr. Jeronimo Melgar Glucose [Mass/Vol] 100 mg/dL Normal [facility] Comment on above: Performed By: #### A 1C #### [facility] [address] [place] [address] Dr. Jeronimo Melgar HbA1c (Bld) [Mass fraction] 5.1 % Normal 4.5-6.2 [facility] Comment on above: Performed By: #### A 1C #### [facility] [address] [place] [address] Dr. Jeronimo Melgar TYPE AND SCREENon 04-19-2022 TYPE AND SCREEN Negative Normal [facility] Comment on above: Performed By: #### B OX #### [facility] [address] [place] [address] Dr. Jeronimo Melgar CBC AUTO DIFFon 04-02-2022 BASO # 0.0 103/ul Normal 0.0-0.1 [facility] Comment on above: Performed By: #### C BC #### [facility] [address] [place] [address] Dr. Jeronimo Melgar Basophils/100 WBC (Bld) 0.3 % Normal 0.2-2.0 [facility] Comment on above: Performed By: #### C BC #### [facility] [address] [place] [address] Dr. Jeronimo Melgar EO # 0.0 103/ul Normal 0.0-0.7 [facility] Comment on above: Performed By: #### C BC #### [facility] [address] [place] [address] Dr. Jeronimo Melgar Eosinophils/100 WBC (Bld) 0.2 % Critically low 0.9-7.0 [facility] Comment on above: Performed By: #### C BC #### [facility] [address] [place] [address] Dr. Jeronimo Melgar Erythrocyte distribution width (RBC) [Ratio] 12.9 % Normal 11.0-15.0 [facility] Comment on above: Performed By: #### C BC #### [facility] [address] [place] [address] Dr. Jeronimo Melgar Hematocrit (Bld) [Volume fraction] 37.5 % Normal 36.0-48.0 [facility] Comment on above: Performed By: #### C BC #### [facility] [address] [place] [address] Dr. Jeronimo Melgar Hemoglobin (Bld) [Mass/Vol] 12.4 g/dL Normal 12.0-16.0 [facility] Comment on above: Performed By: #### C BC #### [facility] [address] [place] [address] Dr. Jeronimo Melgar IG # 0.05 10e3/ul Critically high 0.00-0.03 [facility] Comment on above: Performed By: #### C BC #### [facility] [address] [place] [address] Dr. Jeronimo Melgar IG % 0.3 % Normal 0.0-0.5 [facility] Comment on above: Performed By: #### C BC #### [facility] [address] [place] [address] Dr. Jeronimo Melgar LYMPH # 2.0 103/ul Normal 1.2-3.8 [facility] Comment on above: Performed By: #### C BC #### [facility] [address] [place] [address] Dr. Jeronimo Melgar Lymphocytes/100 WBC (Bld) 14.1 % Critically low 20.5-60.0 [facility] Comment on above: Performed By: #### C BC #### [facility] [address] [place] [address] Dr. Jeronimo Melgar MANUAL DIFF REQ NO Normal [facility] Comment on above: Performed By: #### C BC #### [facility] [address] [place] [address] Dr. Jeronimo Melgar MCH (RBC) [Entitic mass] 27.9 pg Normal 26.7-34.0 [facility] Comment on above: Performed By: #### C BC #### [facility] [address] [place] [address] Dr. Jeronimo Melgar MCHC (RBC) [Mass/Vol] 33.1 g/dL Normal 29.9-35.2 [facility] Comment on above: Performed By: #### C BC #### [facility] [address] [place] [address] Dr. Jeronimo Melgar MCV (RBC) [Entitic vol] 84.3 fL Normal 81.0-99.0 [facility] Comment on above: Performed By: #### C BC #### [facility] [address] [place] [address] Dr. Jeronimo Melgar MONO # 0.6 103/ul Normal 0.3-0.8 [facility] Comment on above: Performed By: #### C BC #### [facility] [address] [place], [place] [id number] Dr. Jeronimo Melgar Monocytes/100 WBC (Bld) 4.0 % Normal 1.7-12.0 [facility] Comment on above: Performed By: #### C BC #### [facility] [address] [place] [address] Dr. Jeronimo Melgar NEUT # 11.7 103/ul Critically high 1.4-6.5 [facility] Comment on above: Performed By: #### C BC #### [facility] [address] [place] [address] Dr. Jeronimo Melgar Neutrophils/100 WBC (Bld) 81.1 % Critically high 43.0-75.0 [facility] Comment on above: Performed By: #### C BC #### [facility] [address] [place] [address] Dr. Jeronimo Melgar Platelet mean volume (Bld) [Entitic vol] 10.2 fL Normal 9.5-13.5 [facility] Comment on above: Performed By: #### C BC #### [facility] [address] [place] [address] Dr. Jeronimo Melgar PLT 420 103/ul Normal 150-450 [facility] Comment on above: Performed By: #### C BC #### [facility] [address] [place] [address] Dr. Jeronimo Melgar RBC 4.45 106/ul Normal 4.20-5.40 [facility] Comment on above: Performed By: #### C BC #### [facility] [address] [place] [address] Dr. Jeronimo Melgar WBC 14.4 103/ul Critically high 4.0-11.0 [facility] Comment on above: Performed By: #### C BC #### [facility] [address] [place], [place] [id number] Dr. Jeronimo Melgar ER URINE PROFILEon 2 Bilirubin Ql (U) Negative Normal NEGATIVE [facility] Comment on above: Performed By: #### B OX #### [facility] [address] [place] [address] Dr. Jeronimo Melgar Clarity (U) CLEAR Normal CLEAR [facility] Comment on above: Performed By: #### B OX #### [facility] [address] [place] [address] Dr. Jeronimo Melgar Color (U) YELLOW Normal YELLOW [facility] Comment on above: Performed By: #### B OX #### [facility] [address] [place] [address] Dr. Jeronimo Melgar ERUAHD A micrscopic examination will be performed if indicated. Normal [facility] Comment on above: Performed By: #### B OX #### [facility] [address] [place] [address] Dr. Jeronimo Melgar Glucose Ql (U) Negative Normal NEGATIVE [facility] Comment on above: Performed By: #### B OX #### [facility] [address] [place] [address] Dr. Jeronimo Melgar Hemoglobin Ql (U) Negative Normal NEGATIVE [facility] Comment on above: Performed By: #### B OX #### [facility] [address] [place] [address] Dr. Jeronimo Melgar Ketones Ql (U) >=80 Abnormal NEGATIVE [facility] Comment on above: Performed By: #### B OX #### [facility] [address] [place] [address] Dr. Jeronimo Melgar LEUKOCYTES Negative Normal NEGATIVE [facility] Comment on above: Performed By: #### B OX #### [facility] [address] [place] [address] Dr. Jeronimo Melgar Nitrite Ql (U) Negative Normal NEGATIVE [facility] Comment on above: Performed By: #### B OX #### [facility] [address] [place] [address] Dr. Jeronimo Melgar pH (U) 7.0 [pH] Normal 5-9 [facility] Comment on above: Performed By: #### B OX #### [facility] [address] [place] [address] Dr. Jeronimo Melgar SPEC GRAVITY 1.020 Normal 1.005-<=1.025 [facility] Comment on above: Performed By: #### B OX #### [facility] [address] [address] [address] Jeronimo Melgar UA PROTEIN TRACE Normal NEGATIVE/ TRACE [facility] Comment on above: Performed By: #### B OX #### [facility] [address] [address] [address] Jeronimo Melgar UR MICRO IND NOT INDICATED Normal [facility] Comment on above: Performed By: #### B OX #### [facility] [address] [address] [address] Jeronimo Melgar Urobilinogen Qn (U) 1.0 {Pepito'U}/dL Normal 0.2 - 1. 0 [facility] Comment on above: Performed By: #### B OX #### [facility] [address] [place] [address] Dr. Jeronimo Melgar PROF CHEM 8 (BAS METB)on Anion gap [Moles/Vol] 12.7 mmol/L Normal [facility] Comment on above: Performed By: #### B MP #### [facility] [address] [place] [address] Dr. Jeronimo Melgar Calcium [Mass/Vol] 9.1 mg/dL Normal 8.5-10.1 [facility] Comment on above: Performed By: #### B MP #### [facility] [address] [place] [address] Dr. Jeronimo Melgar Chloride [Moles/Vol] 103 mmol/L Normal 98-107 [facility] Comment on above: Performed By: #### B MP #### [facility] [address] [place] [address] Dr. Jeronimo Melgar CO2 [Moles/Vol] 23.9 mmol/L Normal 21.0-32.0 [facility] Comment on above: Performed By: #### B MP #### [facility] [address] [place] [address] Dr. Jeronimo Melgra Creatinine [Mass/Vol] 0.78 mg/dL Normal 0.55-1.02 [facility] Comment on above: Performed By: #### B MP #### [facility] [address] [address] [address] Jeronimo Melgar EGFR-AF SYRIAN >60 Normal >=60 [facility] Comment on above: Performed By: #### B MP #### [facility] [address] [address] [address] Jeronimo Melgar EGFR-NON AF SYRIAN >60 Normal >=60 [facility] Comment on above: Performed By: #### B MP #### [facility] [address] [address] [address] Jeronimo Melgar Glucose [Mass/Vol] 155 mg/dL Critically high 74-106 [facility] Comment on above: Performed By: #### B MP #### [facility] [address] [address] [address] Jeronimo Melgar Potassium [Moles/Vol] 3.6 mmol/L Normal 3.5-5.1 [facility] Comment on above: Performed By: #### B MP #### [facility] [address] [place] [address] Dr. Jeronimo Melgar Sodium [Moles/Vol] 136 mmol/L Normal 136-145 [facility] Comment on above: Performed By: #### B MP #### [facility] [address] [place] [address] Dr. Jeronimo Melgar Urea nitrogen [Mass/Vol] 7.0 mg/dL Normal 7.0-18.0 [facility] Comment on above: Performed By: #### B MP #### [facility] [address] [address] [address] Jeronimo Melgar Urea nitrogen/Creatinine [Mass ratio] 9.0 mg/mg Normal [facility] Comment on above: Performed By: #### B MP #### [facility] [address] [place] [address] Dr. Jeronimo Melgar US PREG TVon 03-28-2022 [...] ANGELA SCOTT Date: 2022-03-28 16:32 Normal [facility] US PELVIS AND TRANSVAGon US [...] CHRISTIAN HOPE Date: 2021-10-17 16:35 Normal [facility] CHLAMYDIA/GONOCOCCUS MILY (SW AB/URINE/PAPon 10-14-2021 Chlamydia trachomatis, MILY Positive Abnormal Negative [facility] Comment on above: Result Comment: . Performed By: #### C T/NGNA #### [facility] [address] [place] [address] Dr. Jeronimo Melgar Neisseria gonorrhoeae, MILY Negative Normal Negative [facility] Comment on above: Performed By: #### C T/NGNA #### [facility] [address] [address] [address] Jeronimo Melgar VAGINITIS/VAGINOSIS DNA PROB Obed 10-13-2021 Yang species Negative Normal Negative [facility] Comment on above: Performed By: #### V AGINT #### [facility] [address] [address] [address] Jeronimo Melgar Gardnerella vaginalis Negative Normal Negative [facility] Comment on above: Performed By: #### V AGINT #### [facility] [address] [address] [address] Jeronimo Melgar Trichomonas vaginalis Negative Normal Negative [facility] Comment on above: Performed By: #### V AGINT #### [facility] [address] [address] [address] Jeronimo Melgar XR foot LT min 3V*on 022 XR foot LT min 3V* [place] [id number] XRay Report Signed Patient: Lia Desai MR#: [id number] : 2000 Acct:[id number] Age/Sex: 20 / F ADM Date: 07/18/21 Loc: ER Room: Type: [facility] ER Attending Dr: Ordering Provider: Oneil Ricci APRN Date of Service: 07/18/21 XR/XR foot LT min 3V*: Extremity Injury, Lower ([id number]) XR/XR ankle LT min 3V*: Extremity Injury, [...] Brewer Jr., M.D.07/18/2021 6:15 PM Dictation Location: [place] [address] Transcribed By: [facility] 07/18/211814 Dictated By: Bijan Brewer Jr, MD 07/18/211812 Signed By: 07/18/211814 Normal [facility] XR knee RT 4V*on 05-15-2021 XR knee RT 4V* [address] [place] [address] XRay Report Signed Patient: Lia Desai MR#: [id number] : 2000 Acct:[id number] Age/Sex: 20 / F ADM Date: 05/15/21 Loc: ER Room: Type: [place] [facility] Attending Dr: Ordering Provider: Yovani Valle [...] Ana Juan M.D.05/15/2021 8:11 PM Dictation Location: [place] [address] Transcribed By: [facility] 05/15/212010 Dictated By: Ana Juan II, MD 05/15/212008 Signed By: 05/15/212010 [facility] Vital Signs Date Time Vital Sign Value Performing Clinician Facility 11-23-2024 10:50-0400 Body mass index (BMI) [Ratio] 41.13 kg/m2 Robert Janes DO Work Phone: [facility] 11-23-2024 10:50-0400 Body weight 115.58 kg Robert Janes DO Work Phone: [facility] 11-23-2024 10:50-0400 Diastolic blood pressure 80 mm[Hg] Robert Janes DO Work Phone: [facility] 11-23-2024 10:50-0400 Systolic blood pressure 120 mm[Hg] Robert Janes DO Work Phone: [facility] 10-26-2024 13:28-0400 Body mass index (BMI) [Ratio] 41.29 kg/m2 Nano Back PA Work Phone: [facility] 10-26-2024 13:28-0400 Body weight 116.03 kg Nano Back PA Work Phone: [facility] 10-26-2024 13:28-0400 Diastolic blood pressure 70 mm[Hg] Nano Back PA Work Phone: [facility] 10-26-2024 13:28-0400 Systolic blood pressure 108 mm[Hg] Nano Back PA Work Phone: [facility] 10-05-2024 11:32-0400 Body mass index (BMI) [Ratio] 40.51 kg/m2 Robert Janes DO [facility] [place] 10-05-2024 11:32-0400 Body weight 113.85 kg Robert Janes DO Work Phone: [facility] [place] 10-05-2024 11:32-0400 Diastolic blood pressure 78 mm[Hg] Robert Janes DO Work Phone: [facility] [place] 10-05-2024 11:32-0400 Systolic blood pressure 124 mm[Hg] Robert Janes DO Work Phone: [facility] [place] 09-07-2024 11:13-0400 Body mass index (BMI) [Ratio] 41.08 kg/m2 Robert Janes DO Work Phone: [facility] [place] 09-07-2024 11:13-0400 Body weight 115.44 kg Robert Janes DO Work Phone: [facility] [place] 09-07-2024 11:13-0400 Diastolic blood pressure 80 mm[Hg] Robert Janes DO Work Phone: [facility] [place] 09-07-2024 11:13-0400 Systolic blood pressure 108 mm[Hg] Robert Janes DO Work Phone: [facility] [place] 08-06-2024 15:53-0400 Body mass index (BMI) [Ratio] 41.8 kg/m2 [facility] [place] 08-06-2024 15:53-0400 Body weight 117.48 kg [facility] Nurse [facility] [place] 08-06-2024 15:53-0400 Diastolic blood pressure 84 mm[Hg] [facility] Nurse [facility] [place] 08-06-2024 15:53-0400 Systolic blood pressure 118 mm[Hg] [facility] Nurse [facility] [place] 01-14-2024 11:48-0400 Body mass index (BMI) [Ratio] 43 kg/m2 [employer] [facility] Work Phone: [facility] [place] 01-14-2024 11:48-0400 Body weight 120.84 kg [facility] Work Phone: [facility] [place] 01-14-2024 11:48-0400 Diastolic blood pressure 70 mm[Hg] [employer] [facility] Work Phone: [facility] [place] 01-14-2024 11:48-0400 Systolic blood pressure 120 mm[Hg] [employer] [facility] Work Phone: [facility] [place] 11-28-2023 08:40-0400 Body mass index (BMI) [Ratio] 44.89 kg/m2 Robert Janes DO Work Phone: [facility] [place] 11-28-2023 08:40-0400 Body weight 126.14 kg Robert Janes DO Work Phone: [facility] [place] 11-28-2023 08:40-0400 Diastolic blood pressure 86 mm[Hg] Robert Janes DO Work Phone: [facility] [place] 11-28-2023 08:40-0400 Systolic blood pressure 132 mm[Hg] Robert Janes DO Work Phone: [facility] [place] 07-18-2021 16:56-0400 Body height 167.64 cm [facility] 07-18-2021 16:56-0400 Body mass index (BMI) [Percentile] Per age and sex 98.9 % [facility] 07-18-2021 16:56-0400 Body mass index (BMI) [Ratio] 44.3 kg/m2 [facility] 07-18-2021 16:56-0400 Body temperature 98.3 [degF] [facility] 07-18-2021 16:56-0400 Body weight 124.6 kg [facility] 07-18-2021 16:56-0400 Diastolic blood pressure 108 mm[Hg] [facility] 07-18-2021 16:56-0400 Heart rate 80 /min [facility] 07-18-2021 16:56-0400 Respiratory rate 18 /min [facility] 07-18-2021 16:56-0400 Systolic blood pressure 162 mm[Hg] [facility] 05-15-2021 19:47-0500 Body height 167.64 cm [facility] 05-15-2021 19:47-0500 Body mass index (BMI) [Percentile] Per age and sex 98.9 % [facility] 05-15-2021 19:47-0500 Body mass index (BMI) [Ratio] 43.7 kg/m2 [facility] 05-15-2021 19:47-0500 Body temperature 98.8 [degF] [facility] 05-15-2021 19:47-0500 Body weight 122.95 kg [facility] 05-15-2021 19:47-0500 Diastolic blood pressure 65 mm[Hg] [facility] 05-15-2021 19:47-0500 Heart rate 75 /min [facility] 05-15-2021 19:47-0500 Respiratory rate 16 /min [facility] 05-15-2021 19:47-0500 SaO2% (BldA) [Mass fraction] 100 % [facility] 05-15-2021 19:47-0500 Systolic blood pressure 144 mm[Hg] [facility] Encounters Encounter Date Encounter Type Care Provider Facility Start: 11-23-2024 End: 11-23-2024 Office outpatient visit 15 minutes Robert Marrero DO Work Phone: [facility] Comment on above: 24 weeks gestation o f ([facility]); Second trimester ([facility]); History of miscarriage; Diabetes mellitus screening; Urinary tract infection with hematuria, site unspecified; Episode of recurrent major depressive disorder, unspecified depression episode severity ; Bipolar 1 disorder, depressed (H[facility]); Anxiety, generalized ; PTSD (post-traumatic stress disorder) Start: 11-23-2024 End: 11-23-2024 ambulatory ROBERT JANES Not Available Start: 11-19-2024 End: 11-19-2024 Clinisync Result Encounter Robert Janes DO Work Phone: [facility] Unsolicited Start: 11-19-2024 End: 11-19-2024 Clinisync Result Encounter Robert Janes DO Work [...] on above: 20 weeks gestation o f ([facility]); Second trimester ([facility]) Start: 10-26-2024 End: 10-26-2024 ambulatory NANO BACK Not Available Start: 10-26-2024 End: 10-26-2024 ambulatory ROBERT JANES Not Available Start: 10-15-2024 End: 10-15-2024 Emergency department patient visit [facility] Start: 10-05-2024 End: 10-05-2024 Bamboo flowsheet Robert Ajnes DO Work Phone: [facility] Start: 10-05-2024 End: 10-12-2024 Bamboo flowsheet Robert Janes DO Work Phone: [facility] Start: 10-05-2024 End: 10-12-2024 Clinisync Result Encounter Robert Janes DO Work Phone: [facility] Unsolicited Start: 10-05-2024 End: 10-06-2024 External Result Encounter Robert Janes DO Work Phone: [facility] Unsolicited Start: 10-05-2024 End: 10-05-2024 ambulatory RBOERT JANES Not Available Start: 10-05-2024 End: 10-05-2024 Office outpatient visit 15 minutes Robert Janes DO Work Phone: [facility] Comment on above: Second trimester pre gnancy ([facility]); 17 weeks gestation of ([facility]); Well woman exam with routine gynecological exam; Exposure to STD; Need for maternal serum alpha-protein (MSAFP) screening ([facility]); Screening, , for anatomic survey ([facility]); SOB (shortness of breath); Dizziness Start: 10-05-2024 End: 10-05-2024 Patient encounter procedure Robert Janes DO Work Phone: [facility] Start: 09-20-2024 ambulatory JENN Ward [facility] Start: 09-07-2024 End: 09-07-2024 Bamboo flowsheet Robert [...] 08-11-2024 Emergency department patient visit Errol Martin [facility] Facility:[facility] Start: 08-06-2024 End: 08-06-2024 Office outpatient visit 5 minutes [facility] Janes Nurse [facility] Comment on above: GA: 8w4d Start: 08-06-2024 End: 08-06-2024 ambulatory ROBERT JANES Not Available Start: 08-03-2024 End: 08-03-2024 Emergency department patient visit [facility] Start: 07-20-2024 End: 07-20-2024 Emergency department patient visit [facility] Start: 07-03-2024 End: 07-03-2024 Clinisync Result Encounter [...] 06-07-2024 Emergency department patient visit None Provider Facility:[facility] Start: 06-03-2024 ambulatory ROBERT R JANES Facility: [facility] Start: 06-01-2024 End: 06-01-2024 ambulatory None Provider Facility:[facility] Start: 05-30-2024 End: 05-30-2024 Emergency department patient visit [facility] Start: 05-17-2024 End: 05-17-2024 Clinisync Result Encounter Robert Janes DO Work Phone: [facility] Unsolicited Start: 05-17-2024 End: 05-17-2024 Clinisync Result Encounter Robert Janes DO Work Phone: [facility] Unsolicited Start: 05-15-2024 End: 05-15-2024 Clinisync Result Encounter Robetr Janes DO Work Phone: [facility] Unsolicited Start: 05-15-2024 End: 05-15-2024 Clinisync Result Encounter Robert Ajnes DO Work Phone: [facility] Unsolicited Start: 05-01-2024 End: 05-01-2024 Emergency department patient visit [facility] Start: 04-22-2024 End: 04-22-2024 Emergency department patient visit [facility] Start: 04-19-2024 Emergency department patient visit Unlisted Provider Facility:[facility] Start: 03-20-2024 Emergency department patient visit Oneil Littlejohn Facility:[facility] Start: 01-28-2024 End: 01-28-2024 ambulatory Errol Martin PAC Facility:[facility] Start: 01-14-2024 End: 01-14-2024 Bamboo flowsheet Nano [...] 11-28-2023 ambulatory ROBERT JANES Not Available Start: 05-17-2023 Clinisync Result Encounter Robert Janes DO Work Phone: [facility] Unsolicited Start: 05-17-2023 Clinisync Result Encounter Robert Janes DO Work Phone: [facility] Unsolicited Start: 05-14-2023 Chart abstracting Robert Janes DO Work Phone: [facility] Start: 05-07-2023 Documentation procedure Leah Hernandez RN [facility] Certified Nurse [employer] - [place] Start: 04-19-2023 Telephone encounter Leah Hernandez RN [facility] Certified Nurse [employer] Property [employer] - [place] Start: 04-17-2023 Telephone encounter Leah Hernandez RN 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 Facility:[facility] Start: 06-02-2022 End: 06-03-[address] BALDOMERO ELLER . Facility:[facility] Start: 05-18-2022 Encounter for other preprocedural examination DR BALDOMERO ELLER . [facility] Start: 05-17-2022 End: 05-17-2022 ambulatory [...] 04-03-[address] ANA ARROYO Facility:[facility] Start: 12-22-[address] [place] [address] [facility] Facility:[facility] Start: 03-28-2022 End: 03-29-[address] BALDOMERO ELLER . Facility:[facility] Start: 10-17-2021 End: 10-18-[address] BALDOMERO ELLER . Facility:[facility] Start: 10-12-2021 End: 10-12-[address] BALDOMERO ELLER . Facility:[facility] Start: 07-18-2021 End: 07-18-2021 Emergency department patient visit [facility] Start: 05-15-2021 End: 05-15-2021 Emergency department patient visit [facility] Procedures Date Procedure Procedure Detail Performing Clinician Start: 11-23-2024 Urnls dip stick/tabl et rgnt non-auto w/o micrscp Robert Janes DO Work Phone: Start: 11-19-2024 [facility] UA (CLEAN/CATCH) SERVICE WORKER/MICRO IF IND. Robert Janes DO Work Phone: Start: 10-28-2024 CA ECHO DOPPLER COMPLETE Robert Janes DO Work Phone: Start: 10-27-2024 ECG 12-LEAD Robert Fazi o DO Work Phone: Start: 10-26-2024 Urnls dip stick/tabl et rgnt non-auto w/o micrscp [facility] [employer] PA Work Phone: Start: 10-26-2024 AFP, SERUM, OPEN [...] Td Vaccines (2 - Td or Tdap) [facility] Start: 06-10-2025 End: 06-10-2025 ambulatory 06/10/2025 1:00 PM EST Initial [facility] [address] [facility] [place] [address] [facility] Start: 06-10-2025 End: 06-10-2025 Professional / ancillary services management 06/10/2025 12:30 PM EST Ancillary Procedure [facility] [address] [facility] [place] [address] [facility] Start: 12-21-2024 End: 12-21-2024 Patient encounter procedure 12/21/2024 10:30 AM EDT Routine [facility] [address] [facility] [place] [address] [facility] Back PA [address] [facility] [address] [place], [place] [id number] [facility] Start: 12-07-2024 Influenza vaccination N [facility] Start: 11-23-2024 End: 11-23-2025 CBC panel - Blood by Automated count CBC Lab Routine Diabetes mellitus screening Expected: 11/23/2024 (Approximate), Expires: 11/23/2025 [facility] [place] Work Phone: Comment on above: Expected: 11/23/2024 (Approximate), Expires: 11/23/2025 Start: 11-23-2024 End: 11-23-2025 Measurement of glucose 1 hour after glucose challenge for glucose tolerance test Glucose tolerance, 1 hour Lab Routine Diabetes mellitus screening Expected: 11/23/2024 (Approximate), Expires: 11/23/2025 [facility] [place] Comment on above: Expected: 11/23/2024 (Approximate), Expires: 11/23/2025 Start: 11-23-2024 End: 11-23-2024 Patient encounter procedure [facility] Start: 11-23-2024 End: 11-23-2024 Professional / ancillary services management 11/23/2024 10:30 AM EDT Ancillary Procedure [facility] [address] [place] [address] [facility] Start: 10-26-2024 End: 10-26-2024 Professional / ancillary services management 10/26/2024 11:00 AM EDT Ancillary Procedure [facility] [address] [facility] [place] [id number] [facility] Start: 10-19-2024 End: 10-19-2024 Patient encounter procedure 10/19/2024 9:00 AM EDT Routine [facility] [address] [place] [phone] Robert Marrero, DO [address] [place] [address] [facility] Start: 10-05-2024 End: 10-05-2025 12 lead ECG ECG 12 lead unit performed ECG Routine SOB (shortness of breath) Dizziness Expected: 10/05/2024 (Approximate), Expires: 10/05/2025 [facility] [place] Work Phone: Comment on above: Expected: 10/05/2024 (Approximate), Expires: 10/05/2025 Start: 10-05-2024 End: 11-04-2024 Alpha fetoprotein, maternal Alpha fetoprotein, maternal Lab Routine Need for maternal serum alpha-protein (MSAFP) screening ([facility]) Expected: 10/05/2024 (Approximate), Expires: 11/04/2024 [facility] [place] Comment on above: Expected: 10/05/2024 (Approximate), Expires: 11/04/2024 Start: 10-05-2024 End: 10-05-2026 Echocardiogram 2D complete Echocardiogram 2D complete Echocardiography Routine SOB (shortness of breath) Dizziness Expected: 10/05/2024 (Approximate), Expires: 10/05/2026 [facility] [place] Comment on above: Expected: 10/05/2024 (Approximate), Expires: 10/05/2026 Start: 10-05-2024 End: 01-05-2025 US for US OB 14+ weeks anatomy scan Imaging Routine Screening, , for anatomic survey ([facility]) Expected: 10/05/2024, Expires: 01/05/2025 [facility] Comment on above: Expected: 10/05/2024 , Expires: 01/05/2025 Start: 10-05-2024 End: 10-05-2024 Patient encounter procedure 10/05/2024 11:10 AM EDT Routine [facility] [address] [place] [address] Robert Marrero, DO [address] [place] [address] [facility] Start: 09-07-2024 End: 09-07-2024 Patient encounter procedure 09/07/2024 10:50 AM EDT Routine [facility] [address] [facility] [place] [address] Robert Marrero, DO [address] [place] [address] [facility] Start: 08-06-2024 End: 08-06-2025 ABO/Rh ABO/Rh Lab Routine Missed menses , unspecified gestational age Expected: 08/06/2024 (Approximate), Expires: 08/06/2025 [facility] Comment on above: Expected: 08/06/2024 (Approximate), Expires: 08/06/2025 Start: 08-06-2024 End: 08-06-2025 Blood type and Indirect antibody screen panel - Blood Type and screen Lab Routine Missed menses , unspecified gestational age Expected: 08/06/2024 (Approximate), Expires: 08/06/2025 [facility] Comment on above: Expected: 08/06/2024 (Approximate), Expires: 08/06/2025 Start: 08-06-2024 End: 08-06-2025 Drugs of abuse panel - Urine by Screen method Rapid drug screen, urine Lab Routine , unspecified gestational age Encounter for supervision of normal first in first trimester Expected: 08/06/2024 (Approximate), Expires: 08/06/2025 [facility] Comment on above: Expected: 08/06/2024 (Approximate), Expires: 08/06/2025 Start: 07-31-2024 End: 10-30-2024 US Pelvis transvaginal US OB transvaginal Imaging Routine Missed menses Expected: 07/31/2024, Expires: 10/30/2024 [facility] [place] Work Phone: Comment on above: Expected: 07/31/2024 , Expires: 10/30/2024 Start: 03-05-2024 Adult BMI Screening Adult BMI Screen ing [facility] Start: 03-05-2024 Tobacco Screening Tobacco Screening [facility] Start: 01-14-2024 End: 01-14-2024 Patient encounter procedure 01/14/2024 11:30 AM EDT Office Visit [facility] [address] [facility] [place] [phone] Nano Back PA [address] [place] [address] Arrived [facility] Comment on above: Arrived Start: 12-08-2023 Influenza vaccination Influenza Vacc ine (#1) [facility] Start: 11-28-2023 End: 11-28-2023 Patient encounter procedure 11/28/2023 8:30 AM EDT Routine [facility] [address] [facility] [place] [phone] Robert Marrero, DO [address] [place] [address] Arrived [facility] Comment on above: Arrived Start: 09-26-2023 Screening for Chlamy driss trachomatis Chlamydia Screening [facility] Start: 06-03-2023 End: 06-03-2023 Patient encounter procedure 06/03/2023 2:10 PM EST Routine [facility] [address] [facility] [place] [phone] Robert Marrero, DO [address] [place], [place] [id number] [facility] Start: 04-17-2023 End: 04-17-2023 ambulatory 04/17/2023 8:30 AM EST Initial [facility] Certified Nurse Condominium Property Manager - [place] [address] [place] [address] [facility] Certified Nurse Condominium Property Manager - [place] Start: 12-07-2022 Influenza vaccination Influenza Vacc ine [facility] Start: 2022 Screening for malign ant neoplasm of cervix Pap Smear [facility] Start: 07-18-2021 X-ray of left ankle XR ankle LT min 3V* [facility] Start: 07-18-2021 X-ray of left foot XR foot LT min 3V * [facility] Start: 10-08-2019 Adult BMI Follow Up Plan Adult BMI F ollow Up Plan [facility] Start: 2013 Depression Screening Depression Scre ening [facility] Bacteria identified in Urine by Culture Urine culture Microbiology Routine Missed menses Ordered: 08/06/2024 [facility] Comment on above: Ordered: 08/06/2024 Bacteria identified in Urine by Culture Urine culture Microbiology Routine Urinary tract infection with hematuria, site unspecified Ordered: 11/23/2024 [facility] [place] Comment on above: Ordered: 11/23/2024 CBC W Auto Different ial panel - Blood CBC and differential Lab Routine Missed menses , unspecified gestational age Ordered: 08/06/2024 [facility] Comment on above: Ordered: 08/06/2024 CHLAMYDIA TRACHOMATI S (GENITO/STI) CHLAMYDIA TRACHOMATIS (GENITO/STI) Lab Routine Exposure to STD Ordered: 10/05/2024 [facility] Comment on above: Ordered: 10/05/2024 Cytology Cervical or vaginal smear or scraping study Pap Smear Pathology and Cytology Routine Well woman exam with routine gynecological exam Ordered: 10/05/2024 [facility] [place] Comment on above: Ordered: 10/05/2024 Hemoglobin A1c/Hemoglobin.total in Blood Hemoglobin A1c Lab Routine Missed menses , unspecified gestational age Ordered: 08/06/2024 [facility] Comment on above: Ordered: 08/06/2024 Hepatitis B virus surface Ag [Presence] in Serum or Plasma by Immunoassay Hepatitis B surface antigen Lab Routine Missed menses , unspecified gestational age Ordered: 08/06/2024 [facility] Comment on above: Ordered: 08/06/2024 Hepatitis C virus Ab [Presence] in Serum or Plasma by Immunoassay Hepatitis C antibody Lab Routine Missed menses , unspecified gestational age Ordered: 08/06/2024 [facility] [place] Comment on above: Ordered: 08/06/2024 HIV-1/HIV-2 antigen/antibody combination immunoassay HIV-1 and HIV-2 antibodies Lab Routine Missed menses , unspecified gestational age Ordered: 08/06/2024 [facility] Comment on above: Ordered: 08/06/2024 Neisseria gonorrhoea e DNA [Presence] in Unspecified specimen by MILY with probe detection Neisseria gonorrhea DNA probe, direct Lab Routine Exposure to STD Ordered: 10/05/2024 [facility] [place] Comment on above: Ordered: 10/05/2024 Patient Education [facility] Work Phone: Patient referral [facility] Work Phone: Reagin Ab [Presence] in Serum by RPR RPR Lab Routine Missed menses , unspecified gestational age Ordered: 08/06/2024 [facility] [place] Comment on above: Ordered: 08/06/2024 Rubella antibody, IgG Rubella an tibody, IgG Lab Routine Missed menses , unspecified gestational age Ordered: 08/06/2024 [facility] [place] Comment on above: Ordered: 08/06/2024 SURESWAB(R) ADVANCED VAGINITIS PLUS, TMA SURESWAB(R) ADVANCED VAGINITIS PLUS, TMA Pathology and Cytology Routine Exposure to STD Ordered: 10/05/2024 [facility] [place] Work Phone: Comment on above: Ordered: 10/05/2024 US Pelvis transvaginal US OB tra nsvaginal Imaging Routine Missed menses 08/06/2024 1:33 PM EDT [facility] Payers Date Payer Category Payer Medicaid (Managed Care) [employer] [id number] 2002 Medicaid [id number] 2001 Unknown [id number] 2.16.840.1.138571.3.579.2. 593 2001 Unknown [id number] 2.16.840.1.953715.3.579.2. 593 2001 Unknown [id number] 2.16.840.1.097593.3.579.2. 593 2001 Unknown [id number] 2.16.840.1.552394.3.579.2. 593 2001 Unknown [id number] 2.16.840.1.950691.3.579.2. 593 2001 Unknown [id number] 2.16.840.1.994787.3.579.2. 593 2001 Unknown [id number] 2.16.840.1.683299.3.579.2. 593 2001 Unknown [id number] 2.16.840.1.954456.3.579.2. 593 2001 Unknown [id number] 2.16.840.1.114913.3.579.2. 593 2001 Unknown [id number] 2.16.840.1.066303.3.579.2. 593 2001 Unknown [id number] 2.16.840.1.733252.3.579.2. 593 2001 Unknown [id number] 2.16.840.1.407357.3.579.2. 718 2001 Unknown [id number] 2.16.840.1.385557.3.579.2. 2001 Unknown [id number] 2.16.840.1.292407.3.579.2. 2001 Unknown [id number] 2.16.840.1.542590.3.579.2. 2001 Unknown [id number] 2.16.840.1.255513.3.579.2. 2001 Unknown [id number] 2.16.840.1.540767.3.579.2. 2001 Unknown [id number] 2.16.840.1.067040.3.579.2. 2001 Unknown [id number] 2.16.840.1.924637.3.579.2. 2001 Unknown [id number] 2.16.840.1.206333.3.579.2. 1285 2001 Unknown [id number] 2.16.840.1.379870.3.579.2. 1285 2001 Unknown [id number] 2.16.840.1.050580.3.579.2. 1285 2001 Unknown [id number] 2.16.840.1.311171.3.579.2. 1285 2001 Unknown [id number] 2.16.840.1.434378.3.579.2. 1285 2001 Unknown [id number] 2.16.840.1.724033.3.579.2. 128 2001 Unknown [id number] 2.16.840.1.896304.3.579.2. 1258 2001 Unknown [id number] 2.16.840.1.260017.3.579.2. 9 2001 Unknown [id number] 2.16.840.1.098647.3.579.2. 9 2001 Unknown [id number] 2.16.840.1.623121.3.579.2. 9 2001 Unknown [id number] 2.16.840.1.591994.3.579.2. 9 2001 Unknown [id number] 2.16.840.1.068684.3.579.2. 9 2001 Unknown [id number] 2.16.840.1.188945.3.579.2. 9 2001 Unknown [id number] 2.16.840.1.416940.3.579.2. 9 2001 Unknown [id number] 2.16.840.1.270601.3.579.2. 9 2001 Unknown [id number] 2.16.840.1.101724.3.579.2. 9 1959 Unknown [id number] Self-pay Self Pay [id number] Social History Date Type Detail Facility Start: 07-18-2021 End: 09-17-2023 Tobacco smoking status NHIS Never smoked tobacco (finding) [facility] Start: 2001 Sex Assigned At Female [facility] Start: 05-14-2023 Alcohol intake Lifetime non-drinker (finding) [facility] Start: 03-20-2023 [facility] Start: 05-01-2023 Gender identity Identifies as female gender (finding) [facility] Start: 05-01-2023 Sexual orientation Heterosexual (finding) [facility] Start: 05-14-2023 End: 11-23-2024 History of Social function [facility] Start: 05-14-2023 End: 11-23-2024 Tobacco use panel [facility] Start: 08-01-2022 End: 09-17-2023 Tobacco use and exposure Smokeless tobacco non-user [facility] Start: 01-03-2024 End: 11-23-2024 Alcoholic beverage intake Ex-drinker (finding) [facility] History of tobacco use Passive smoker [facility] Housing Instability Unknown [facility] Start: 08-14-2022 Alcohol Comment social [facility] Start: 2001 Sex Assigned At Not on file [facility] Functional Status Date Assessment Result Facility 11-23-2024 Patient Health Quest ionnaire 2 item (PHQ-2) [Reported] [facility] 11-23-2024 PHQ-9 quick depressi on assessment panel [Reported.PHQ] [facility] 2024 Patient Health Quest ionnaire 2 item (PHQ-2) [Reported] [facility] Clinical Notes 04-17-2023 to 11-23-2024 Shantell Ambrose LPN - 11/23/2024 11:20 AM GENE Worthy - 10/26/2024 1:20 PM Eder Samuels NP - 10/05/2024 11:10 AM dEer Samuels NP - 09/07/2024 10:50 AM EDT Note Date & Type Note Facility 11-23-2024 History of Presen t illness Narrative Reason for Appointment: Patient ID: Lia Desai is a 24 y.o. female who presents for Routine Visit Patient presents today for Return OB appointment. MEDICATIONS Current Outpatient Medications Medication Instructions 27-1 MG tablet 1 tablet, Daily ALLERGIES Allergies Allergen Reactions Azithromycin Macrolides And Ketolides Unknown Metronidazole GI intolerance Other Reaction(s): Vomiting Wound Dressing Adhesive PROBLEMS Active Ambulatory Problems Diagnosis Date Noted 38 weeks gestation of ([facility]) 11/28/2023 Resolved Ambulatory Problems Diagnosis [...] Negative. Endocrine: Negative. Allergic/Immunologic: Negative. OBJECTIVE Objective: OBGyn Exam Vitals: Estimated body mass index is 41.13 kg/m as calculated from the following: Height as of 08/08/22: 5' 6 . Weight as of this encounter: 254 lb 12.8 oz. BP: 120/80 No LMP recorded (lmp unknown). Patient is . ASSESSMENT & PLAN ICD-10-CM 1. 24 weeks gestation of ([facility]) Z3A.24 POCT urinalysis dipstick manually resulted 2. Second trimester ([facility]) Z34.92 POCT urinalysis dipstick manually resulted 3. History of miscarriage Z87.59 4. Diabetes mellitus screening Z13.1 CBC Glucose tolerance, 1 hour CBC Glucose tolerance, 1 hour 5. Urinary tract infection with hematuria, site unspecified N39.0 Urine culture R31.9 Patient presents today for a routine obstetrics appointment. Patient is currently 24w1d with a Estimated Date of Delivery: 03/14/25. Patient would like to discuss mental health medication as she has previous diagnosis of mental health issues. At this time she does not have thoughts of actively following through with self harm. Patient to start out on Lexapro and will have it increased at next appointment. Patient to RTC in 4 weeks. Documented by Shantell Ambrose LPN on behalf of: Robert Marrero DO documented in this encounter [facility] 10-26-2024 History of Presen t illness Narrative [...] Diagnosis Date Noted 38 weeks gestation of ([facility]) 11/28/2023 Resolved Ambulatory Problems Diagnosis Date [...] PLAN ICD-10-CM 1. 20 weeks gestation of ([facility]) Z3A.20 POCT urinalysis dipstick manually resulted 2. Second trimester ([facility]) Z34.92 POCT urinalysis dipstick manually resulted [...] of: GENE Gutierrez documented in this encounter [facility] 10-15-2024 Note XR CHEST 1 VW History: Near syncope Procedure: Chest AP portable upright Comparison: 04/22/2024 Findings: The heart and lungs show no acute findings, and the mediastinum and anushka are grossly negative . No pneumothorax. Impression: No acute pulmonary process. Finalized by Angela Baker MD on 10/15/2024 1:51 PM [facility] 10-05-2024 History of Presen t illness Narrative [...] Diagnosis Date Noted 38 weeks gestation of ([facility]) 11/28/2023 Resolved Ambulatory Problems Diagnosis Date [...] nursing note reviewed. Exam conducted with a physician practice coordinator present. Vitals: Estimated body mass index is 40.51 kg/m as calculated from the following: Height as of 08/08/22: 5' 6 . Weight as of this encounter: 251 lb. BP: 124/78 No LMP recorded (lmp unknown). Patient is . ASSESSMENT & PLAN ICD-10-CM 1. Second trimester ([facility]) Z34.92 POCT urinalysis dipstick manually resulted 2. 17 weeks gestation of ([facility]) Z3A.17 3. Well woman exam with routine gynecological exam Z01.419 Pap Smear 4. Exposure to STD Z20.2 SURESWAB(R) ADVANCED VAGINITIS PLUS, TMA CHLAMYDIA TRACHOMATIS (GENITO/STI) Neisseria gonorrhea DNA probe, direct 5. Need for maternal serum alpha-protein (MSAFP) screening ([facility]) Z36.1 Alpha fetoprotein, maternal Alpha fetoprotein, maternal 6. Screening, , for anatomic survey ([facility]) Z36.89 US OB 14+ weeks anatomy scan [...] Robert Marrero DO documented in this encounter [facility] 09-20-2024 Note Patient Education Ma terials Follows:Disease [...] to help relieve symptoms, such as: ? Ccvj-izi-nighpgn cold medicines. ? Medicines to reduce coughing [...] other clear broths. General instructions ? Take hico-tto-cuxucfr and prescription medicines only as told by [...] cannot use soap and water, use hand oven baker. ? Avoid touching your mouth, face, eyes, [...] get better within 7?10 days. ? Take enze-duf-cxooxmn and prescription medicines only as told by your doctor. This information is not intended to replace advice given to (more content not included)... [facility] 09-07-2024 History of Presen t illness Narrative [...] History: Diagnosis Date Bacterial vaginosis Chlamydia Depression ([facility]) Family history of breast cancer Family history of uterine cancer HISTORY PAST MEDICAL HISTORY SOCIAL HISTORY Past Medical History: Diagnosis Date Bacterial vaginosis Chlamydia Depression ([facility]) Family history of breast cancer [...] nursing note reviewed. Exam conducted with a physician practice coordinator present. Vitals: Estimated body mass index is [...] Robert Marrero DO documented in this encounter [facility] 08-11-2024 Note Education Materials Obstetrics and Gynecology [...] provider. ? Do not use any prescription, ygdw-gmt-vulpsyl, or herbal medicines for morning sickness without [...] to throw up. Foods to avoid ? [place] foods. ? Fatty foods. ? Spicy foods. [...] body to make you feel better. ? [place] your teeth after throwing up or rinse [...] provider. Document Revised: 12/26/2023 Document Reviewed: 07/04/2023 [employer] Patient Education ? 2023 [employer]. [facility] 08-06-2024 History of Presen t illness Narrative [...] History: Diagnosis Date Bacterial vaginosis Chlamydia Depression ([facility]) Family history of breast cancer Family history [...] or undercooked meat, and stay away from [facility]. Patient has also been advised to not [...] Zaida Tavares MA documented in this encounter [facility] 06-07-2024 Note Education Materials Orthopedics Flank Pain, [...] as told by your doctor. ? Take hygn-vpq-jsfsvxe and prescription medicines only as told by [...] provider. Document Revised: 06/05/2021 Document Reviewed: 06/05/2021 [employer] Patient Education ? [facility] Note Education Materials Infectious Disease Influenza, [...] doctor may want you to: ? Take ekwn-zfb-fqbqgyd medicines. ? Drink plenty of fluids. The [...] Applesauce. ? Rice. ? Lean meats. ? [place]. ? Crackers. ? Do not eat or drink: ? Fluids that have a lot of sugar or caffeine. ? Alcohol. ? Spicy or fatty foods. General instructions ? Take qtie-bjz-blwrlse and prescription medicines only as told by [...] use soap and water, use alcohol-based hand oven baker. ? Keep all follow-up visits. How is [...] hospital. Summary ? (more content not included)... [facility] 03-20-2024 Note Education Materials Obstetrics and Gynecology [...] these instructions at home: Medicines ? Take hzwj-mnk-uzjposw and prescription medicines as told by your [...] for Disease Control and Prevention: www.cdc.gov ? [place] [employer]: www.ashastd.org ? Office on [...] provider. Document Revised: 09/22/2020 Document Reviewed: 09/22/2020 [employer] Patient Education ? 2023 [employer]. Orthopedics Acute Back Pain, Adult Acute back pain is sudden and usually short-lived. It is often caused by an injury to the muscles and tissues in the back. The injury may resul (more content not included)... [facility] 01-28-2024 Note Patient Education Ma terials Follows:Disease [...] to help relieve symptoms, such as: ? Pxlz-kgp-vknbfuy cold medicines. ? Cough suppressants. Coughing is [...] other clear broths. General instructions ? Take zjzs-igo-uywqhjt and prescription medicines only as told by [...] and water are not available, use hand oven baker. ? Avoid touching your mouth, face, eyes, [...] These symptoms may (more content not included)... [facility] 01-14-2024 History of Presen t illness Narrative [...] History: Diagnosis Date Bacterial vaginosis Chlamydia Depression ([facility]) Family history of breast cancer Family history of uterine cancer HISTORY PAST MEDICAL HISTORY SOCIAL HISTORY Past Medical History: Diagnosis Date Bacterial vaginosis Chlamydia Depression ([facility]) Family history of breast cancer [...] nursing note reviewed. Exam conducted with a physician practice coordinator present. Vitals: Estimated body mass index is [...] of: GENE Gutierrez documented in this encounter [facility] 11-28-2023 History of Presen t illness Narrative [...] History: Diagnosis Date Bacterial vaginosis Chlamydia Depression ([facility]) Family history of breast cancer Family history of uterine cancer HISTORY PAST MEDICAL HISTORY SOCIAL HISTORY Past Medical History: Diagnosis Date Bacterial vaginosis Chlamydia Depression ([facility]) Family history of breast cancer [...] nursing note reviewed. Exam conducted with a physician practice coordinator present. Vitals: Estimated body mass index is [...] Robert Marrero DO documented in this encounter [facility] 05-07-2023 History of Presen t illness Narrative Letter sent to patient via [facility] and also to her My Chart regarding her missed OB intake appointment and also her MICHAEL for her Chlamydia. documented in this encounter [facility] 04-19-2023 Miscellaneous Notes Called patient to reschedule her IOB intake visit. No answer. Left message to call office to reschedule her appointment. documented in this encounter [facility] 04-19-2023 Telephone encounter Note Called patient to reschedule her IOB intake visit. No answer. Left message to call office to reschedule her appointment. [facility] 04-17-2023 Miscellaneous Notes Patient called for her OB intake per phone. No answer. Left message to call office. documented in this encounter [facility] 04-17-2023 Telephone encounter Note Patient called for her OB intake per phone. No answer. Left message to call office. [facility] Evaluation note Diagnosis 6 weeks follow-up [facility] Diagnosis Third trimester state, incidental 38 weeks gestation of [facility] Diagnosis Nausea and vomiting during - Primary [facility] Diagnosis Missed menses , unspecified gestational age Encounter for supervision of normal first in first trimester [facility] Diagnosis Constipation, unspecified constipation type- Primary First trimester state, incidental 13 weeks gestation of Nausea and vomiting in Unspecified vomiting of , unspecified as to episode of care [facility] Diagnosis Second trimester ([facility]) state, incidental 17 weeks gestation of ([facility]) Well woman exam with routine gynecological exam Routine gynecological examination Exposure to STD Need for maternal serum alpha-protein (MSAFP) screening ([facility]) Screening, , for anatomic survey ([facility]) Encounter for anatomic survey SOB (shortness of breath) Shortness of breath Dizziness Dizziness and giddiness [facility] Diagnosis 20 weeks gestation of ([facility]) Second trimester ([facility]) state, incidental [facility] Diagnosis 24 weeks gestation of ([facility]) Second trimester ([facility]) state, incidental History of miscarriage Personal history of other genital system and obstetric disorders Diabetes mellitus screening Screening for diabetes mellitus Urinary tract infection with hematuria, site unspecified Episode of recurrent major depressive disorder, unspecified depression episode severity Bipolar 1 disorder, depressed ([facility]) Anxiety, generalized PTSD (post-traumatic stress disorder) Posttraumatic stress disorder documented in this encounter [facility]InstructionsNot on filedocumented in this encounterProPremier [facility] SystemInstructionsNot on filedocumented in this encounterProPremier [facility] Chief Complaint and Reason for Visit [...] Dates NON STAFF 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[employer] Relationship Specialty Start Date End Date Nano Back PA [address] [place] [address] [place] [address] [facility] 01/07/24 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 Relationship Specialty Start Date End Date [facility], [address] [place] PCP - General Family Medicine 08/11/18 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 Relationship Specialty Start Date End Date Services, [facility] [address] [place], [place] PCP - General Family Medicine 08/11/18 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 Relationship Specialty Start Date End Date Services, [facility] [address] [place] PCP - General Family Medicine 08/11/18 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 Relationship Specialty Start Date End Date Nano Back PA [facility] [place], [facility] 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/24 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[employer] Relationship Specialty Start Date End Date Nano Back PA [facility] [place], [place] [address] [facility] 01/07/24 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 Relationship Specialty Start Date End Date Nano Back PA [facility] [place], [facility] 01/07/24 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 Relationship Specialty Start Date End Date Nano Back PA [facility] [place] [address] [facility] 01/07/24 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 Relationship Specialty Start Date End Date Nano Back PA [facility] [place], [place] [id number] [facility] 01/07/24 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 Relationship Specialty Start Date End Date Nano Back PA [facility] [place] [address] [facility] 01/07/24 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 Relationship Specialty Start Date End Date Nano Back PA [address] [facility] [place] [address] PCP - [facility] 01/07/24 Goals (unrecognized section and content) Goals may be documented in a n alternate sectionNot on filedocumented as of this encounterNot on filedocumented as of this encounterNot on filedocumented as of this encounterNot on filedocumented as of this encounter INFORMATION SOURCE (unrecogn ized section and content) DATE CREATED AUTHOR 07/27/2021 [facility] DATE CREATED AUTHOR AUTHOR'S ORGANIZ ATION 08/16/2022 [facility] DATE CREATED AUTHOR AUTHOR'S ORGANIZ ATION 09/26/2024 [facility] DATE CREATED AUTHOR AUTHOR'S ORGANIZ ATION 10/20/2024 [facility] DATE CREATED AUTHOR AUTHOR'S ORGANIZ ATION 11/25/2024 [facility] EPIC Reason for Visit (unrecogniz [...] BE BASED ON THE PRIMARY CLINICAL RECORDS. [employer] provides no warranty or guarantee of the accuracy or completeness of information in this document.
[2024-12-09 10:45] LABS: Hematocrit 36.7 % (36.0-48.0); Hemoglobin 11.9 g/dL (12.0-16.0); Immature Granulocytes Abs Auto 0.10 10^3/uL (0.00-0.03); Immature Granulocytes Pct Auto 0.7 % (0.0-0.5); Lymphocytes Absolute Auto 3.1 10^3/uL (1.2-3.8); Mean Corpuscular HGB Conc 32.4 g/dL (29.9-35.2); Mean Corpuscular Hemoglobin 27.2 pg (26.7-34.0); Mean Corpuscular Volume 83.8 fL (81.0-99.0); Platelet Count 389 10^3/uL (150-450); Red Blood Count 4.38 10^6/uL (4.20-5.40); White Blood Count 14.0 10^3/uL (4.0-11.0)
[2024-12-09 11:49] LABS: Glucose 1 Hour 89 mg/dL (<130)
== END 2024-12-09 09:27 | disposition home or self-care (01) ==
PROVIDERS: Visit Provider Obstetrics & Gynecology
DX: Z13.1 Encounter for screening for diabetes mellitus (principal)
CPT/HCPCS: 82950; 85025

== ENCOUNTER 2025-01-25 17:56 | Observation (INO) | payer OTHER, SELFPAY ==
--- OUTSIDE RECORDS SUMMARY | 2025-01-25 18:01 | XMS_ITS | CCD ---
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 Name Role Phone NON STAFF Primary Care Provider LAURA Kraft Emergency Provider NICOLE Ricci Emergency Provider DAPHNIE ., DR ALEXANDRE Attending Unavailabl e KARASIK ., DR ALEXANDRE Admitting Unavailabl [facility] Unava ilable KARASIK ., DR ALEXANDRE Consulting Unavailabl e LAVINIA, DR CHRISTIAN Doyle Consulting Unavailable KARASIK ., DR ALEXANDRE Consulting Unavailabl e KARASIK ., DR ALEXANDRE Attending Unavailabl e [facility] Unava ilable KARASIK ., DR ALEXANDRE Admitting Unavailabl e ANGELA SCOTT Consulting Unavailable DINA, DR ANA Dennis Attending Unavailable DINA, DR ANA Dennis Admitting [facility] Unava ilable DINA, DR ANA Dennis Consulting Unavailable BOATENG ., MR CUADRA Consulting Unavailable KARASIK ., DR ALEXANDRE Attending Unavailabl [facility] Unava ilable KARASIK ., DR ALEXANDRE Admitting Unavailabl e KARASIK ., DR ALEXANDRE Attending Unavailabl e [facility] Unava ilable KARASIK ., DR ALEXANDRE Admitting Unavailabl e KARASIK ., DR ALEXANDRE Consulting Unavailabl e JOANNE HUDSON Consulting Unavailable ENIO ATKINS Consulting Unavailable [facility] Unava ilable KARASIK ., DR ALEXANDRE [...] DR ALEXANDRE Attending Unavailabl e [facility] Primary Care Unava ilable KARASIK ., DR ALEXANDRE Admitting Unavailabl e KARASIK ., DR ALEXANDRE Consulting Unavailabl e ZIEBANGELA CARMICHAEL Consulting Unavailable KARASIK ., DR ALEXANDRE Attending Unavailabl e KARASIK ., DR ALEXANDRE Admitting Unavailabl e [facility] Primary Care Unava ilable KARASIK ., DR ALEXANDRE Consulting Unavailabl e KARASIK ., DR ALEXANDRE Consulting Unavailabl e KARASIK ., DR ALEXANDRE Attending Unavailabl e [facility] Primary Care Unava ilable KARASIK ., DR ALEXANDRE Admitting Unavailabl e WEST, DR CHRISTIAN Doyle Consulting Unavailable REQUEST, DR AMBER ESTRELLA Consulting Unavaila ble Unavailable [facility] Foster Un[facility] Services, [facility] Primary Care Provider JOHN SALCEDO Admitting Unavailable JOHN SALCEDO Attending Unavailable [facility] Primary Care Unava ilable [facility] Primary Care Unava ilable ASHELY AYALA Attending Unavailable [facility] Primary Care Unava ilable ANGELA GONGORA Attending Unavailable [facility] Primary Care Unava ilable LEIGH SMALLS Attending Unavailable [facility] Primary Care Unava ilable JULISA LAZO Attending Unavailable [facility] Primary Care Unava ilable COLE BLACKMON Attending Unavailab le [facility] Primary Care Unava ilable Services, [facility] Primary Care Provider ROBERT MARRERO Primary Care Unavailable Oneil Littlejohn Attending Unavailable Provider, Unlisted Primary Care Unavailable Le, Abner K Attending Unavailable Candice Abner K Admitting Unavailable CAROL Garzon-C Doug Vasquez Attending Unavailable JENN Garzon Admitting Unavailable Martin PACErrol Attending Unavailable Martin PAC, Errol Maldonado Admitting Unavailable MERY MARREROY R Primary Care Unavailable Aj, Lena Y Attending Unavailable Lena Rocha Y Admitting Unavailable Provider, None Primary Care Unavailable Provider, None Primary Care Unavailable JANES, ROBERT R Attending Unavailable JANES, ROBERT R Admitting Unavailable JANES, ROBERT R Admitting Unavailable Provider, None Primary Care Unavailable JANES, ROBERT R Attending Unavailable Provider, None Primary Care Unavailable Nano Foster Unavailable JANES, ROBERT Attending Unavailable JANES, ROBERT Attending Unavailable JANES, ROBERT Referring Unavailable NANO BACK Attending Unavailable JANES, ROBERT Attending Unavailable NANO BACK Attending Unavailable MAG SAMUELS Attending Unavailable NANO BACK Attending Unavailable Allergies Allergy Classification Reported Allergen(s) Allergy Type Date of Onset Reaction(s) Facility (1 source) Alfentanil Drug Allergy [facility] Repository (3 sources) Azithromycin; Translations: [AZITHROMYCIN] Drug Allergy 2 [facility] Repository (20 sources) Azithromycin Drug Allergy 2 Nausea And Vomiting [facility] Work Phone: (20 sources) Macrolides And Ketolides Drug Allergy 4 Unknown [facility] (20 sources) Wound Dressing Adhesive Drug Allergy 4 [facility] (20 sources) metroNIDAZOLE; Translations: [METRONIDAZOLE] Drug Allergy 4 GI intolerance, Nausea And Vomiting [facility] Work Phone: (6 sources) Adhesive agent; Translations: [ADHESIVE] Propensity to adverse reactions to drug 3 [facility] (1 source) Adhesive agent Propensity to adverse reactions to drug 3 [facility] (1 source) Adhesive bandage; Translations: [Adhesive Bandage] Propensity to adverse reactions (disorder) [facility] Repository (1 source) Azithromycin; Translations: [Zithromax] Drug Allergy [facility] Repository (1 source) metroNIDAZOLE; Translations: [Flagyl] Drug Allergy [facility] Repository (1 source) Promethazine; Translations: [Phenergan] Drug Allergy [facility] Repository Medications Current Medications Medication Drug Class(es) Dates Sig (Normalized) Sig (Original) [id number] 200 actuat albuterol 0.09 mg/actuat metered dose [...] bedtime. Indications: a common cold. 0 Active benzonatate 100 mg oral capsule (1 source) Non-narcotic Antitussive Start: 12-10-2024 take 1 capsule by mouth three times daily as needed for cough benzonatate (TESSALON PERLES) 100 mg capsule Take 1 capsule (100 mg total) by mouth 3 (three) times a day as needed for cough. 20 capsule 1 12/10/2024 Active busPIRone hydrochloride 10 mg oral tablet [...] 30 tablet 2 04/05/2023 05/05/2023 Active escitalopram 20 mg oral tablet (15 sources) Serotonin Reuptake Inhibitor Start: 01-04-2025 End: 02-03-2025 take 1 tablet by mouth once daily escitalopram (Lexapro) 20 MG tablet Indications: Anxiety, generalized Take 1 tablet (20 mg) by mouth Daily 30 tablet 1 01/04/2025 02/03/2025 Active Start: 11-23-2024 End: 01-04-2025 take 1 tablet by mouth once daily escitalopram (Lexapro) 10 MG tablet Indications: Episode of recurrent major depressive disorder, unspecified depression episode severity , Bipolar 1 disorder, depressed (HCC) , Anxiety, generalized , PTSD (post-traumatic stress disorder) Take 1 tablet (10 mg) by mouth Daily 30 tablet 1 11/23/2024 01/04/2025 Discontinued folic acid 1 mg oral tablet (7 sources) Start: 03-06-2023 take 1 tablet by mouth in the morning folic acid (FOLVITE) 1 mg tablet Indications: Folic acid deficiency Take 1 tablet (1 mg total) by mouth in the morning. 30 tablet 12 03/06/2023 Active metoclopramide 10 mg oral tablet (20 sources) Dopamine-2 Receptor Antagonist Start: 07-20-2024 End: 11-23-2024 metoclopramide (Reglan) 10 MG tablet [...] 9:24pm ondansetron 4 mg disintegrating oral tablet (11 sources) Serotonin-3 Receptor Antagonist Start: 11-21-2023 End: [...] vomiting 30 tablet 2 04/23/2023 05/23/2023 Active take 1 tablet by vinicio th every eight hours as needed for nausea and vomiting ondansetron (ZOFRAN) 4 mg tablet Take 1 tablet (4 mg total) by mouth every 8 (eight) hours as needed for nausea or vomiting. Active 25/iron fum/folic/d mazariegos (-1 ORAL) (5 sources) 25/iron fum/folic/dha (-1 ORAL) Take by mouth. Active 25/iron fum/folic/dha (-1 ORAL) Take by mouth. 0 Active 27-1 MG tablet (20 sources) Start: 03-13-2022 take 1 tablet by mouth once daily 27-1 MG tablet Take 1 tablet by mouth Daily 03/13/2022 Active prochlorperazine 25 mg rectal suppository (1 source) Phenothiazine Start: 08-03-2024 take 25 mg rectal route every twelve hours as needed for nausea and vomiting prochlorperazine (COMPAZINE) 25 mg suppository Insert 1 suppository (25 mg total) into the rectum every 12 (twelve) hours as needed for nausea or vomiting. 12 suppository 08/03/2024 Active progesterone 100 mg vaginal insert (1 source) Progesterone progesterone (ENDOMETRIN) 100 mg vaginal insert Insert 1 tablet (100 mg total) into the vagina in the evening. Active Progesterone 200 MG suppository (6 sources) [...] Date Documented Da te Episodic/Chronic Abdominal pain (6 sources) Pelvic and perineal pain; Translations: [Abdominal pain] Onset: 2 Episodic Anxiety disorders (6 sources) Generalized anxiety disorder; Translations: [Generalized anxiety disorder] 11-23-2024 Chronic Conditions associated with dizziness or vertigo (5 sources) Dizziness; Translations: [Dizziness and giddiness] Onset: 5 10-05-2024 Episodic Genitourinary symptoms and ill-defined conditions (2 sources) Blood in urine; Translations: [Hematuria, unspecified] 01-19-2025 Episodic Immunizations and screening for infectious disease (3 sources) Contact with and (suspected) exposure to infections with a predominantly sexual mode of transmission; Translations: [Exposure to sexually transmissible disorder] Onset: 3 10-05-2024 Episodic Menstrual disorders (4 sources) Irregular menstruation, unspecified; Translations: [Missed period] Onset: 3 Chronic Mood disorders (6 sources) Recurrent major depressive episodes; Translations: [Major [...] ] Onset: 3 Episodic Other complications of (2 sources) size does not accord with dates; Translations: [Uterine size-date discrepancy, unspecified trimester] 01-04-2025 Episodic Other gastrointestinal disorders (2 sources) Constipation; [...] screening for raised alphafetoprotein level] 10-05-2024 Episodic Other upper respiratory infections (3 sources) Acute pharyngitis, unspecified; Translations: [Acute pharyngitis, unspecified] Onset: 5 Episodic Residual codes; unclassified (2 sources) Gestation [...] of ] 11-23-2024 Episodic Residual codes; unclassified (4 sources) H/O: miscarriage; Translations: [Personal history of other complications of , childbirth and the puerperium] 11-23-2024 Episodic Residual codes; unclassified (2 sources) Gestation period, 28 weeks; Translations: [28 weeks gestation of ] 12-21-2024 Episodic Residual codes; unclassified (2 sources) Gestation period, 30 weeks; Translations: [30 weeks gestation of ] 01-04-2025 Episodic Residual codes; unclassified (2 sources) Pain, unspecified; Translations: [Pain, unspecified] Onset: 5 Episodic Residual codes; unclassified (2 sources) Gestation period, 32 weeks; Translations: [32 weeks gestation of ] 01-19-2025 Episodic Sprains and strains (1 source) Sprain of ankle; Translations: [Sprain of unspecified ligament of unspecified ankle, initial encounter] 07-18-2021 Episodic Superficial injury; contusion (1 source) Contusion of knee; Translations: [Contusion of right knee, initial encounter] 05-15-2021 Episodic Syncope (1 source) Syncope and collapse; Translations: [Syncope and collapse] Onset: 5 Episodic Syncope (1 source) Syncope Onset: 5 Unclassified (1 source) Vomiting During Onset: 5 Unclassified (1 source) Threatened Miscarriage Onset: 5 Unclassified (1 source) Cold Like Symptoms Onset: 5 Unclassified (1 source) Cough, unspecified; Translations: [Cough, unspecified] Onset: 5 Urinary tract infections (2 sources) Urinary tract infectious disease; Translations: [Urinary tract infection, site not specified] 11-23-2024 Episodic Viral infection (1 source) Viral infection, unspecified; Translations: [Viral infection, unspecified] Onset: 5 Episodic Viral infection (1 source) COVID-19; Translations: [COVID-19] Onset: 5 Past or Other Problems Problem Classification Problem Date Documented Da te Episodic/Chronic Esophageal disorders (1 source) Gastro-esophageal laceration-hemorrha ge syndrome; Translations: [GASTRO-ESOPHAGEAL LAC-HEMORR SYND] Onset: 04-04-2022 Episodic Hemorrhage during ; abruptio placenta; placenta previa (1 source) Threatened ; Translations: [Threatened ] Onset: 05-30-2024 Episodic Inflammatory diseases of female pelvic organs (1 source) Inflammatory disease of cervix uteri; Translations: [Inflammatory disease of cervix uteri] Onset: 05-01-2024 Episodic Mood disorders (12 sources) Mood disorders Onset: 11-23-2024 11-23-2024 Other [...] , unspecified] 04-05-2023 Episodic Other complications of (3 sources) Vomiting of , unspecified; Translations: [Unspecified vomiting of , unspecified as to episode of care or not applicable] Onset: 08-03-2024 09-07-2024 Episodic Residual codes; unclassified (1 source) 8 weeks gestation of ; Translations: [8 WEEKS GESTATION OF ] Onset: 04-04-2022 Episodic Residual codes; unclassified (1 source) Less than 8 weeks gestation of ; Translations: [< 8 WEEKS GESTATION ] Onset: 04-05-2022 Episodic Residual codes; unclassified (20 sources) Gestation period, 38 weeks; Translations: [38 weeks gestation of ] Onset: 11-28-2023 11-28-2023 Episodic Unclassified (1 source) Cough, unspecified; Translations: [Cough, unspecified] Onset: 12-10-2024 NEGATED: Highlighted row has been ruled out!Unclassified (1 source) No known active problems 07-30-2023 Results Test Name Value Interpretation Reference Range Facility US OB FOLLOW UP TRANSABDOMIN AL APPROACHon 01-19-2025 OB FOLLOW UP TRANSABDOMINAL APPROACH FINDINGS: Comparison November 23 and October 26, 2024. A single, live intrauterine is present with normal cardiac rate of 169 beats per minute. Normal activity and amniotic fluid volume. Amniotic fluid index is 16 cm. Morphology is grossly normal. The placenta is anterior, not associated with the cervical os. The current sonographic age is 32 weeks and 2 days, based on the following measurements: BPD 7.9 cm (31 weeks, 5 days) Head Circumference 29.6 cm (32 weeks, 5 days) Abdominal Circumference 28.1 cm (32 weeks, 1 day) Femur Length 6.2 cm (32 weeks, 2 days) Presentation Cephalic Weight (g) by Percentile 36.6 % * These measurements result in an estimated date of delivery of March 14, 2025. The current estimated weight [id number] grams (4 pounds, 4 ounces). IMPRESSION: Single, live intrauterine , current sonographic age of 32 weeks and 2 days, with an estimated date of delivery of March 14, 2025 (prior MONIQUE March 19, 2025). * Estimated Weight (g) by Percentile is based upon an accurate estimated age based on last menstrual period. TRANSCRIBED BY: ELECTRONICALLY SIGNED BY: Dion Iglesias MD Normal Not Available Comment on above: Order Comment: US OB SCAN FOR GROWTH Estimated Date of Delivery: 03/14/25 Gestational Age as of 01/04/2025: 30w1d Urinalysis macro (dipstick) panel (U)on 01-19-2025 Bilirubin, UA Negative Negative - 4(70) +++ mg/dL [facility] Blood, UA Positive Negative - 50 Villa/mcL [facility] Clarity, UA Clear [facility] Color, UA Yellow [facility] Glucose, UA Negative Negative - 1999(110) ++++ mg/dL [facility] Interpretation and review of laboratory results Abnormal [facility] Ketones, UA Negative Negative - 160(16) ++++ mg/dL [facility] Leukocytes, UA Trace Negative - 500+++ Pierre/mcL [facility] Nitrite, UA Negative Negative - Positive [facility] pH, UA 6.5 5 - 9 [facility] Protein, UA 1+ Negative - 1999(20) ++++ mg/dL [facility] Spec Grav, UA 1.025 1 - 1.03 [facility] Urobilinogen, UA 2.0 0.2 - 12 mg/dL [facility] Urinalysis macro (dipstick) panel (U)on 01-04-2025 Bilirubin, UA Negative Negative - 4(70) +++ mg/dL [facility] Blood, UA Positive Negative - 50 Villa/mcL [facility] Clarity, UA Clear [facility] Color, UA Yellow [facility] Glucose, UA Negative Negative - 2000(110) ++++ mg/dL [facility] Interpretation and review of laboratory results Abnormal [facility] Ketones, UA Negative Negative - 160(16) ++++ mg/dL [facility] Leukocytes, UA Positive Negative - 500+++ Pierre/mcL [facility] Nitrite, UA Negative Negative - Positive [facility] pH, UA 6 5 - 9 [facility] Protein, UA Positive Negative - 1999(20) ++++ mg/dL [facility] Spec Grav, UA 1.025 1 - 1.03 [facility] Urobilinogen, UA 1.0 0.2 - 12 mg/dL [facility] Urinalysis macro (dipstick) panel (U)on 12-21-2024 Bilirubin, UA Negative Negative - 4(70) +++ mg/dL [facility] Blood, UA Negative Negative - 50 Villa/mcL [facility] Clarity, UA Clear [facility] Color, UA Sarai [facility] Glucose, UA Negative Negative - 1999(110) ++++ mg/dL [facility] Interpretation and review of laboratory results Abnormal [facility] Ketones, UA Negative Negative - 160(16) ++++ mg/dL [facility] Leukocytes, UA Negative Negative - 500+++ Pierre/mcL [facility] Nitrite, UA Negative Negative - Positive [facility] pH, UA 6 5 - 9 [facility] Protein, UA Negative Negative - 1999(20) ++++ mg/dL [facility] Spec Grav, UA 1.03 1 - 1.03 [facility] Urobilinogen, UA 0.2 0.2 - 12 mg/dL [facility] Coding Summaryon 12-18-2024 Coding Summary HTMLBase 64 YldpmrcmNGn2dBa+PGhlY WQ+JE5KRGCoG88uuIOmmJ 0xX2CEPWbYQrheAFZJMFp BNaQexqMzEU3akBQkAVBh IC8+JU3nGLIzPsqerNEsu 6M5kIY4G57ctf0xPExepE I9GKUxShRmajmrp9nqqXh 6IDcuNmluOyBt WWXdpQ80FXY1sE03Ld98r MAymWCds5njsOg3LaXyXW RjEMG8kJmiXLbwj6QdCST hU55twEApf7V3 AASpxIdukMQvGoTwiJI1j M1mFErqlmdlb4hmykbnSo v8yx24tEMpr2I5sFQ9J9F yaiK5KLYxzPEr UzrobLDTjS5kmaeaf3kig fsoVbFkXTEnKRz5UUl0YI OwuGubFzImCB15KQO9KQA mxzTsZ8NgTVAm oKonMxL5p6H7Cc7IE3XCD wcvX7YQHQULDMsfjSV+PC 49rz37E9UdWxuxLkq6XMN kIMZ5xBL2iM6h NBBkHGdib2A3dFP5N5Fbb oFoil2pe5irPNWeVFrjC7 0heJJqf7H7WYHizIH9PHY dqRztNkMznA77 Oyc+INVopNjru2ZtWpnlc 7kow5smvIt5BouxTMSjod QzkMvfGWD6i1MrBg1rGDE bmFZ2jIX8zI6c MhBbXpN2DDznE332KnBgo EMqJfxjT33vR3PcgIP+PH ZsIpk2YKHhiPmyEF9gU1V hZGRpbmctbGVm eNvuIP9rPNZsngtzMMXyk M0kDPOqI0w7KeUjOdX4AL whT6NdZBAesynsOd41kQ1 aKxKaSuY8AYmc A3KcxfT2MXNvzRJnAJshM YM0C55cf3W5STVsTGHqYI G8lHC5pP9vwUsrgexycOY mdDsgdmVydGlj DKcbPEbaV554QUXcbWpiU kNvZGluZyBEYXRlOiAgMD kvMTIvMjAyNTwvdGQ+PHR yQXA4bSyqNURq bTKlULhhMt7thIxkqRbsQ O1rWKXfpghzEZChnM1aQP TedRFgtPecWD6zVKHyjnr tc480RkNtLFS2 STPajQOuK1BdxU7xWmIuP VRgCKImO6DhvXFzDJrlN0 26YCfmQvU2IWHwbxUoH0F sLWFsaWduOiB0 t0S4Ud9Ny8YexpohE7Mmh XEiSqFpMzanPDa8K0JuYs wvdHI+QW26TJRdBF21FEt 3DFX8aBgmHDqr DHJeX0EnaR2aSbLlKHBkQ GRkOyc+PHRhYmxlIHdpZH RoPScxMDAlJyBzdHlsZT0 oKb2dHFZyNTLd mFlakDAoKlOwz9fnYCLqH KmwGJ6usGbqL3XioAS7NL Kzl8d7Bn37F75oU2LpkGU +DCMqoJI9eBK1 lT7aAxChNrP7MVpuE858P hNdaPXsQdeog5pqd4dilJ i8RgV0FPXsjyYymCdaUTT 2y2SzKx98X30a IHdpZHRoPSIxNSUiIHZhb Jolkr5hnZ8oGe5+PGNvbC S4eOP9cZ3zAdQaBaH4TEr wQ142OcLpjNXa Fsjmc4uzk2sctOu8ClAkJ KErepArnPorOMU6y7OtSe 77N0DpjGigo2BoPoq0qw1 9pFNxx9V5aAD3 X9ChJXHrwkyygHJmqGxaL O4nEAKvepfvEZNqnC1nXL ShR9b8ZwErNlK6ZZqzP0J utiG8VHSbkWFc UVCofKYHtR5xhqqpt8qnf ezwPpGbFGRhGKv7WFh2ZD JbaFhwZtFaHRZ4GzR1OUZ 5fEXbzQ0fjAqh mmfyjG9tQjz+QMU3pKSwl FTRQE5bGwqkiFI+PHRkIH J6xZmwAOoiJNCzhT5zYVT nV2c3PxZiNbA1 WOrnP0VmlwZ3QXXgoOBfU PMurJBFpC9ihfvlw6erpt ncQxRwUJEnJQl2CWk6ABI saWduOiBsZWZ0 OxK7IAY4mNSslW9vkNiyf temkH8tEwx+QmlydGggRG T1ZXy4A7NkTlx6BGBqbYy vTL2ofURdMDqe Iu7itGvtpTuoYY6zGVCcw xpjx877KmXyc7rbKBFzoX FlOBekHYX9G40fd6D9DKE jYHRsFAQ9vHY6 nO6lvUyhchoauRBchXtrt rPqxMywYSwrISftF816VO PzxUjsQhEsYCb2T5DfFqp 2HAMahKzsWJ8z eYTiABhbJv0dvKljoIvgM U6jJRSvhfccb182JhLgi7 ugEHYiyLVbTOnyJWD8U17 ok8J3ALLgOHTe RVK4cQM8dF8tiPwgefdit GVmdDsgdmVydGljYWwtYW qgS319JTMjwAnoGtBlrPt 6D5WkGhq2CMZs jHhiAT5wuTDoPJfqUj2jg VareRbkPZ5dWGIspzpce1 38CbSvn0mwZEKrjTFuKOk wGSK0F69rj3K6 PFMcHNBbGSK9tZY9xI1dj GlnbjogbGVmdDsgdmVydG qmNEzaRHpsH281YOLolRx nPlBhdGllbnQg VPkjOEv8P4TsRoeeiYZ+P C84YMVuZM48lIVqdIOtf6 jbiGd8BeRxXANpYXT2nMm gTBqkf3OoRWOw J61lbPWmc8K2ASDiuJafe EWzKjBevBF5oH9aQZtlek xkr5zhciowFmtvb8rqxu6 3jF62S86tYSoi ZHRoPSIzMCUiIHZhbGlnb g2myC3nAm1+JMEwhHT8cS E3eX9vPPBrAdH9MPwfF74 9InRvcCIvPjxj c8rlk7rrgIj5FhM6NEUpy wWltJquCXC0i4KtFg05M9 9sIHdpZHRoPSIyMCUiIHZ mmZagqf4vnV0h Ii8+VYRdxCN4mWD8wM3wA nPiNyY3RCorI832OgCjpU FhFrelZ44zD9OxeSN+PHR kXvp8QHEdbZzw PW2czYAoAHndTf1kNGC3V sTeKfSjGNciD3WgYHCsya cwrnharIB5OOYmRXMveE6 8Vi5ziJrrGXWs cEOJiF0kcshpv3skbwbpD oTjPYPvRPx6EBc3RQZgjU muNnToINX9EsV6EEU8hNF quS9kkQuczbqm xT0zH7BoBIRytlrxFk18j N2bQvYaDpK8WEetNuk+R0 yWRgOSEGrjA6nRFFGFALw JPP0PSTmycDU+ TPQtLOI1cUxkZBvqMQTfg Y9pJOPyO7g5HpUnClN6DB kbR5AaTJJedlvrAs42dN9 xBkTpYsV2ZCtm I0GvmbH0KNDjeJMuKCpfZ DU9A65fy6T1BJIzBCBlBO X1zJL6lV5krDpxuqihtPQ mdDsgdmVydGlj OFfvOCynS863MTXztKnkR pF6FdToAsMrFMY8H1AlXe y7JMZhtTqbRQ0hdHMnHGj nZn8yeZkwdDoo SF3cNRJzguprEKVoqJ0uZ AQsfRAioIksCJ7dHWLrrw tow371KrWhASO3NSXhzJY kW6YbuW8zKkLu DULtLSCwB1JqeUYqNRvwB 490JDxsEuW7ESRlfoKyF5 JcYNXkuWrqJwS8v4I1Td6 yMyBZZWFyczwv dGQ+GQWdJFO8rWifOCwnY FMtfX2wUKUvY5x7SgWcCd P7VBprO8VuOMFkkaldPd0 2tW4aKtXsIxR2 KBjhD2LvniZ8QZJgkOUeW ImvVEJ7I32ez1B2FLYnAD ZhDYR7tND8vI1wqZxuoos gbGVmdDsgdmVy zMpgMUipVBdeF297JVCqc DsnPkZFTUFMRTwvdGQ+PH IfQRF1dCudPByuXYInuL5 sEXLmY2w2EaIx EvR8SWisI0SiZJIxiinmF l23wZ0cBfOgOnG3WQgiY3 EvdlQ0WGFpzMBrDQhyDDT 5P31kx4B3AIYs FVRtOUF9vNJ6tD2mwVvmn jogbGVmdDsgdmVydGljYW xcNWeqC471YOGuaZrkYzJ aUHMsMC1aoLty dGQ+BB11iz43B7NtRnetN gk0KYQdZPA5lXP9mS3wJE GrMSoky3L0gPF2W9XxllY lpc8vf0jpVQUi QDyyN13ucEIfq8V9XLCuh ED1LRLydCyyLhUetN50Oj c+OIGfuFmoh0NdQsvad3w yb5wilJc2QaSo PZHtbwCxrTyoDFH7m4XbH j46W13cOYtdWDPfZOMhDB XyAPRrnKjlwf1ezV5tHd5 +UGKbkXZ0cPM6 wJ5yXkSnJyK3JFtiZ441A vFogUVgVtvnq0inu3gazT p7YyPgUBJqzpQvgZkvMDQ 3q4FyPk98Q5Xh sAgba1OzVuu0ls10iMPgr 3O6sYA7A1OlGEJnmbqrqW KjdEsyHJ4pORQfoatcONE bjR6mHKDuU6a2 IrFkTpA7UZflS8OdauW5H NTemYNeFZErlRCCdE5rbe usj3kdrzvlQkUpCGSmDQq 9DCu8XULldIqe AvLyOWB0OrF5WYA2hXRih E4wcHelrjecvW8yWux+UG x4m0ieoQYdJV0ytNN3RG0 4ER76nOFgd4M9 cZS7N6AbEDAwgcltsmbjp QI9KLGdLKDbsV66Fj1ytS zuKk6uCHUnLIQ7KVIhcRB rE7XwsY5tOuWr PMEcLAGkJ9SgtLJtJAxoX 854UPvpOaU5BUTylqBuZ7 CaWJBudPpxViO6w7G4Tp9 JNM53YC39PD45 sPXaw6M4bLR3Z5RlLRRuy ynhiqkjsCE2HDQsWZVdlI 16Lk7ccIfpNc2uCOIzSFL 6SVAqxUZwN9Wc zB0iFhOaRQEeKCBwH8Ylb PKyCRynS668CFolTlL6XI XjknCmZ1GrODMicIlgEnX 1q4L8Ip8OTj68 GP59WE01eGLbg2G3mZT5R 0LiJLDvhffpxiyyrCZ3GD LtXBNlgN81Li8xnIlbGr3 sVYYtXPF8HVMx bFKdG7XmeG0nUnJvZHEuU QFzA4MifMDoYSqlX909NW cxOnP1XLHdggYsH9IwESE flCpnFgG1q6U8 Yy2TORgwrgr4P2OgKshwk HI+UD91GKXdYU93jALdcB Lkr9cafVm9NqUeVPKdBFY 8nEbaJTndr3Qx ZXI (more content not included)... [facility] Coding Summaryon 12-17-2024 Coding Summary HTMLBase 64 RndzonzzUCx1zUf+PGhlY WQ+ZQ0QJWUeX62dxRAywN 8sP2UDAQdFUiwkQYQQHOw GCjXhgvZpNB9rsBVwIVJh IC8+MT0yPZJxOsgykYGmm 5A8iXE2R46vdd8eBQzdbB W9CPBnBcLqavhjq7zebSq 6IDcuNmluOyBt RLGszS26KQB7eP65Vz36g QXfbUVxr3rbuOd5SgLwDZ YmUIR2lQvyWLxdt7PoVOD jC53lxZTzu9V6 STZssVhxnXIuIrNxfTN9u E6tCByhytiwu9jedbgdHu d6xd66uJRed3P2mHT9V6Y ekyH4BIQeiABf FychgNPZkO4lowoeq8vnv sqtNwNlSJCrHBy6BGm0QF CffDvhFvBhOG46WYS0GLY imnMxT0UyRJBy fQzxDyU3n1B5Qm4XR4OTE cryG7GNMGYEZSzvyBM+PC 53vv03K5DdPnlzGcw2KCR zRQF5mEO4sV6o HIJiHVoqr6Q2rIP8B2Ivv oSrky9rg8wtNIOgAWxdY0 4ilVWzi5S4RSAgqAE6TUB vaKrcBxHhyZ97 Oyc+YMPsaAxhd0EwDrsno 1spa4moxEk9HfrrDBKbqp AehScbROJ9l2TxCw5xMTD pjZG1rPA8wU6l JxXbPrZ9NUgaF085HhGdf YWsDlifO64yK0MjqMX+PH ZeOhx7AUQtwVnuPE6bX1K hZGRpbmctbGVm nOqgBB5rPRPapmijWOIbj H9mFQNrY2a3FiCzHxA4PG vpH1DdICCtcdcmDj58dM3 uQyMvDqS2GMxr B6DqndG8SJZtfYFdMFoaZ YQ0H04kp7D3IGNjKDUoXK K7nIQ1lC7cmBjydkyqiWP mdDsgdmVydGlj NTbgWIetT762OPNlwYgjU kNvZGluZyBEYXRlOiAgMD kvMTEvMjAyNTwvdGQ+PHR iRLT2tVsgKJId jEZnEPdqNa2wiCctaDteH U2rCCBwyahrSCLelZ5hMX MecHOpuRltRK7cYYRmmvy ve025UrEdXTQ4 WYQveUOmW3NgmQ0kUeVwG CFtTHAyW8UvyQEmVIbyC8 71UNrkLzA8LNHeqaSuP6Z sLWFsaWduOiB0 b5I0Wz3Sz3YynizbV9Sye AIuScLiIacwNXu6K6KuNo wvdHI+DG67RMNoJM79YFn 3ICK7tDnaNXkk PSYaW8ZccQ1nDrTqXWBxU GRkOyc+PHRhYmxlIHdpZH RoPScxMDAlJyBzdHlsZT0 bXb9dGOHaTEGe uRlbmXUrRuYas6jpSEByS CsiSZ8kgTxtB4ScuDG7IS Fau8v2Ps28X89pJ0RoqKY +CDBlgBQ7kUI5 mZ1aVnNcDoO4LHfkA116A tGcqFNhBxkej6ntd2mgmT n8IzP6CWIzjxQndKolXTD 9c5LcTb74J04t IHdpZHRoPSIxNSUiIHZhb Zfuqc0pxJ9oYm7+PGNvbC J9uGR1yX1hVbOcJkI5XKc iT142XcFxmWZg Bwtjs7icy6ynxQm0NfNmW HSvtsOehTpbVGR8x1YlSt 51T0VwkWltq1MbRve2bl5 1iXLww6M9kUL3 Z5BsXBZjgsfapRLgtRceY W5aXGDiztwoZRMskO3zXL UkL5c7BnWpQqN0XAixN6S vkhP4EOSqmWZb UEXkbXZKjK0ivrbpa6tts izsLkLsHHQeXZq9AFj0TN WgoGmyDtZwXGC0NfE6LIJ 7vXSbwX1exStv kxlcyQ7oIol+KSB9oAChq SZYZP8nNfeuyLW+PHRkIH Q7cPvzYHhpQNDwdB9bYTS mF0g7JbQfAkR1 EQwyJ9BcujR0NGAvmWMcB WFpuKNUqE2rgqfnm4zvgv muQfTqYOGnQPi7LBe8SLE saWduOiBsZWZ0 UnO7FRI1hAQqaJ6pgOkjg qlnqI7kErt+QmlydGggRG L2FXh0T5PiMon1ERTpzQx zXU6qmZWiTCye Ms7zjZaixTuyFH9aCCQbj dxmc342AbNsu4bpIEJruT RoBBdoGUQ1M06xf1U7JPM jELLgALP5sEE6 lN0mdFdlmgyunOHiqMnty eFxtZupCNsiNPwwL156RB JvrMmiDgCoTFt3H4YgPgi 5DIPvcGbkLV2z aKFoULbfCb5mnWgihUpoL S3eCZXbfpzur574NzEvv5 jcSOCxdUDbDKpiIEP0N77 if9E4ZPQdGTPw QXF5sMP3xN4rsLrzahtdn GVmdDsgdmVydGljYWwtYW jbC893GSHraRsePgZptKc 4R6ClHsa7KMOy aNoiDX2dkAQbNZpyWo7xj VekpPfpNL5iTIXigxtxc0 11FrPsl6ziPYKaoGMfJBl bOXU9U84ke2Y8 IKEhLPSgRMN2vMF1dJ2ci GlnbjogbGVmdDsgdmVydG xcIMsbNXioW866LJXycPx nPlBhdGllbnQg WRaaKIg5S3SzMhftoBL+P A59UKCfOY42lZOkgNWnr1 sbeCw7JwAzHXBzYZC6uUn kKNjrf3KdWACg S56fgIYxs1I0KYYdbUbif XRaQlQzcOJ7yF5cZGyrpb fnm4boejyiYulaw2agvz1 6eV53T95wXRzr ZHRoPSIzMCUiIHZhbGlnb l1wrZ9uHc3+YILqyCQ1gB W6bW8sYVOsQpZ1YQpqN04 9InRvcCIvPjxj v2xji6ptcOh1ImW5EHIvv lHywGijNBY2p2OiTz68O4 9sIHdpZHRoPSIyMCUiIHZ ogDhesn9zgI8l Ii8+QHEdbED3gFM0wJ9dK sKtGnE3XNzkF685BwGpjU LxMojwS30tQ4CljMP+PHR wZmu4WMJyjYda UA1luYMlDFnfZu7lTJR1B gFpWkZbWNbuM5DzGUVxvc qtbgcjdTB5IJUtJYQhuD2 1Sm0onOsvZXMz kGLBvC8drvnfs5ihutqbD iJwWCKdUZi8UJv5PVRcjY ttTpYaFOJ1IoR1ERW7uFG qrB3sfIrshvba sS0bV4FoNTBpxvgrDm59z U7tFjSaKeF2SVvbKtr+R0 jPDlNDZXliS1gCZLRAWCr AUR1OKJyotEE+ OOUxRCR1oIjfCQhlBFLsp B6mJAPgP7k0PyRpZaG1JI ebJ0FbUTFqaggvLz41oB0 uJxIgUvN4VOig K7RgtiT9LAKfkXTwLNtqX AK6D15mv6G0BYBxDEWcXZ A8cMD4wI9wzChzgexrmUW mdDsgdmVydGlj GHnoRYjdC406ZCWqrBocE bC2DrTbZrNiMSX5E5TbQm r9ATLjzEfsKY3ojAFbLAw wRq8hiGidoSne WH3fMJLbwiiiCVRqeO4oC RNlfWWhyOroIB3bPUQthi myk439QqXhBLE0VTRsvOE iY2MgwK6hDpZd WEKwCPOtU6SvePAkWRmmX 625QKogJuN5WVBvgzJwO7 KwVKEukXzzYcD1w5X9An7 yMyBZZWFyczwv dGQ+SMLnGIP6mPheMDphJ AHzjU5aAUKgV0n3ShYcWz W2KSiaH8VxUKOlfpdlLc6 9wF7aQsDmWjH9 OHstL0EdhoJ8EBZaqOUuS GlsLKB8S83ez0O9PFGtXH VgYUL2iUQ2vT9aeZiojph gbGVmdDsgdmVy bNfsKVsmZWccJ732KHPaw DsnPkZFTUFMRTwvdGQ+PH EfDGT0wYzlULqeGYHsrK9 hIBZpZ0r9HyYd ZyQ3PMplN3KeHEFduvqyN s99sE5lRjZzMaK0AJwyR2 SlwcK0YVDiqMJaRXddRFE 2M41bg0U7NDVw DFOoEEF5tBL8cJ4vkSaqt jogbGVmdDsgdmVydGljYW miWYzeO221TOCqmNxyJg6 EIQ82HX35M5Oq PjwvdGFibGU+PHRhYmxlI HdpZHRoPScxMDAlJyBzdH raUY5eLb3cLADdPVMbbHe ukBFwQpDdq5mx IJOsEUhmXP0mxCjeO4Kfg XM8HWXlt8b7Wb27D57qQ2 JvdXA+YTSgbKU9oKJ3qY9 hGjQtSwZ2SSou D640BvWrqICzEtulk8xeb 9scxAm2XxLpYTGbsgSzqW amMYE8a2JrGz43Q10fYJu pZHRoPSIyMCUi WJFmqQkstj4tmL8hGj8+P ZSgnAX6bRQ3eT3pXdSwQg Z7ARyvJ321DtYwvNSnCed xA62tX6PulJB+ JZVoRek4XYZlyAefYX1we JFoAOgtVh7xUMI6QbChCl ChRIrnO3HnSLTiiqwdpcs guKY0BJXzPVVb lT22Yv4fjIwdGr5fNHGvD LQ8JTDdwJSvW3CavU9eWa HpVTXcINJgW6YswGRbCGz rA636OQyvRkV0 KVPtveNeS3XfWEQcsQnpB hS2l1A9Xd9CfZgteRKqHU 9xWtFoJQb3V2DvPzp8MEJ kaQrwAA5tqZCc KYezWo0qwIsmyGdlLJ8bT VItkqxhu842UeOog7ktBK SgiYQdRPafNHS4X13um3N 5LTSrESQsSBL6 xWV3oZ0quZdtpnkthJUyx DsgdmVydGljYWwtYWxpZ2 81AGFumOxeCqNSKyb6J8W bWen5LPPciQlp LK9ceZGrGGhsZn8xlKlqt SydCN8hZAEvksxus398Wg Jol0lfUDOghZTlSHuoYKG 7L04ao0Y7LGJt UWWpVKT1xDD0wG3fzVvmk jogbGVmdDsgdmVydGljYW rzJNbaH537ZOAgkXpxQw7 EFfi9U2RyOpv3 FEQncJfuAW2zdAGyDOpnR i5rpGarxStqZE2xWFGzpj row144VhAnt0zsWUBrhVJ lWFwdEPR5A29c i8U2FMTaJFIaGZF6kTI5k H3wmWozsrnflYVpoGoqtt JpgSeyEGegIVgxZ093NCJ vcDsnPlBheWVy OjwvdGQ+YB01xb27Z3RzY glwEte1SXFsNZH5hVN8fK 1lGDFsHAqhn3K0oIL9P5R pcvPucp3yg9gi YXB (more content not included)... [facility] .QC SARS-CoV-2 (COVID-19)/Fl u/RSV (GeneXpert)on 12-16-2024 Internal Control Pass Normal [facility] Comment on above: Order Comment: Order ed by Discern.[[email or web address]_QC] Performed By: #### 7 [id number] ####[facility] (DEFAULT)[address] [place] [address] COVID/Flu/RSV (GeneXpert)on 12-16-2024 Flu A (GXpert COVFLURSV) Negative Normal Negative [facility] Comment on above: Performed By: #### 7 [id number], [id number] ####[facility] (DEFAULT)[address] [place] [address]88 Flu B (GXpert COVFLURSV) Negative Normal Negative [facility] Comment on above: Performed By: #### 7 [id number], [id number] ####[facility] (DEFAULT)[address] [place] [address] 695[address] RSV (GXpert COVFLURSV) Negative Normal Negative [facility] Comment on above: Performed By: #### 7 [id number], [id number] ####[facility] (DEFAULT)[address] [place] [address] SARS-CoV-2 (COVID-19) RNA MILY+probe Ql (Unsp spec) Negative Normal Negative [facility] Comment on above: Result Comment: Perf ormed by PCR methodology. Performed By: #### 7 [id number], [id number] ####[facility] (DEFAULT)[address] [place] [address] ED Note-Nursingon 12-16-2024 ED Note-Nursing Pt. C/O a cough and chest discomfort that started one week ago. PT. was seen in Urgent Care last Saturday and diagnosed with URI. pt. states that she was also given Telson pearls by her OB. PT. states she has pain when she coughs. pt. is 27 1/2 weeks . Pt. has been taking Tylenol for discomfort. pt. is A&O x4. PT. has a steady gait. [facility] C Throaton 12-12-2024 C Throat Normal throat jonny isolated No pathogens isolated [facility] Comment on above: Performed By: #### 6 [id number] ####[facility] (DEFAULT)[address] [place] [address] CHLAMYDIA/GC BY PCR TEA SW ABon 12-10-2024 CHLAMYDIA/GC BY PCR TEA SWAB CHLAMYDIA DNA(PCR) Negative Chlamydia trachomatis not detected by nucleic acid amplification. This does not exclude the possibility of infection because results are dependent on adequate specimen collection. GONORRHOEAE DNA(PCR) Negative Neisseria gonorrhoeae not detected by nucleic acid amplification. This does not exclude the possibility of infection because results are dependent on adequate specimen collection. [facility] Comment on above: Performed By: #### C BARAK, [facility], 1987-[facility] #### [facility] ([id number]) [address] [place] [address], [place] [address] POCT Rapid CoV-2 (COVID-19) Antigen/ Flu A&Bon 12-10-2024 Influenza A POCT Negative Normal Negative [facility] Comment on above: Performed By: #### 2 [id number] ####[facility] (DEFAULT)[address] [place] [address] Influenza B POCT Negative Normal Negative [facility] Comment on above: Performed By: #### 2 [id number] ####[facility] (DEFAULT)[address] [place] [address]36 SARS-CoV-2 (COVID-19) RNA MILY+probe Ql (Unsp spec) Not detected [facility] Comment on above: Performed By: #### 6 [id number] ####[facility] (DEFAULT)[address] [place] [address] POCT Rapid Strepon S. pyogenes Ag IA Ql (Unsp spec) Negative Invalid Interpretation Code [facility] Comment on above: Performed By: #### 1 [id number] #### [facility] (DEFAULT) [address] [place] [address] URINALYSISon 12-10-2024 Bilirubin Ql (U) Negative Normal Negative [facility] Comment on above: Performed By: #### Shakeel CANCINO [facility], 1986-08 #### [facility] ([id number]) [address] [place] [address] BLOOD/HGB Small Abnormal Negative [facility] Comment on above: Performed By: #### Shakeel CANCINO [facility], 1986-08 #### [facility] ([id number]) [address] [place] [address] [place] [address] CA OXALATE CRYSTALS Present Abnormal None [facility] Comment on above: Performed By: #### Shakeel CANCINO [facility] 1986-08 #### [facility] ([id number]) [address] [place] [address]652 Color (U) Yellow Normal Yellow [facility] Comment on above: Performed By: #### Shakeel CANCINO [facility], 1987-08 #### [facility] ([id number]) [address] [place] [address]161 Glucose Ql (U) Negative Normal Negative, 250 mg/dL [facility] Comment on above: Performed By: #### Shakeel CANCINO [facility], 1987-08 #### [facility] ([id number]) [address] [place] [address] 76751 Ketones Ql (U) Negative Normal Negative [facility] Comment on above: Performed By: #### Shakeel CANCINO [facility], 1987-08 #### [facility] ([id number]) [address] [place] [address] 70300 Leukocyte esterase Test strip Ql (U) Negative Normal Negative [facility] Comment on above: Performed By: #### Shakeel CANCINO [facility]MP, 1986-08 #### [facility] ([id number]) [address] [place] [address] 85380 Nitrite Ql (U) Negative Normal Negative [facility] Comment on above: Performed By: #### Shakeel CANCINO [facility], 1987-08 #### [facility] ([id number]) [address] [place] [address]186 PH,URINE 6.5 Normal 5.0-8.5 [facility] Comment on above: Performed By: #### Shakeel CANCINO [facility], 1987-08 #### [facility] ([id number]) [address] [place] [address] 68880 Protein Ql (U) Negative Normal Negative [facility] Comment on above: Performed By: #### Shakeel CANCINO [facility], 1987-[facility] #### [facility] ([id number]) [address] [place] [address] 99827 R.B.CELLS 2 Normal 0-5 [facility] Comment on above: Performed By: #### Shakeel CANCINO [facility], 1987-[facility] #### [facility] ([id number]) [address] [place] [address] 85721 Specific gravity (U) [Rel density] 1.010 Normal 1.003-1.035 [facility] Comment on above: Performed By: #### Shakeel CANCINO [facility], 1987-08 #### [facility] ([id number]) [address] [place] [address]50 SQUAMOUS EPITHELIUM 2 Normal 0-5 [facility] Comment on above: Performed By: #### Shakeel CANCINO [facility], 1987-08 #### [facility] ([id number]) [address] [place] [address] 17089 TURBIDITY Clear Normal Clear [facility] Comment on above: Performed By: #### Shakeel CANCINO [facility], 1987-[facility] #### [facility] ([id number]) [address] [place] [address] 32652 UROBILINOGEN 1.0 eu/dL Normal 0.2 eu/dL, 1.0 eu/dL [facility] Comment on above: Performed By: #### Shakeel CANCINO [facility], 1987-08 #### [facility] ([id number]) [address] [place] [address] 51368 W.B.CELLS 1 Normal 0-5 [facility] Comment on above: Performed By: #### Shakeel CANCINO [facility], 1987-[facility] #### [facility] ([id number]) [address] [place] [address] 65588 URINE CULTUREon 12-10-2024 Bacteria identified Cx Nom (U) CULTURE RESULTS 10-50,000 ORGANISMS/mL NORMAL UROGENITAL JONNY Normal [facility] Comment on above: Performed By: #### Shakeel CANCINO [facility], 1987-08 #### [facility] ([id number]) [address] [place] [address] 26918 VAGINITIS PANEL PCRon 2024 VAGINITIS PANEL PCR BACT. VAGINOSIS DNA Not Detected Qualitative results are reported based on detection and quantitation of targeted organism markers which include: Lactobacillus spp. (L. crispatus and L. jensenii), Gardnerella vaginalis, Atopobium vaginae, Bacterial Vaginosis Associated Bacteria-2 (BVAB-2) and Megasphaera-1. YANG SPECIES DNA Not Detected Yang species not detected include: C. albicans, C. tropicalis, C. parapsilosis or C. dubliniensis. YANG KRUSEI DNA Not Detected No Yang krusei detected. YANG GLABRATA DNA Not Detected No Yang glabrata detected. TRICHOMONAS VAG DNA Not Detected No Trichomonas vaginalis detected. BD MAX Vaginal Panel has not been evaluated for patients under 18 years old. Results for these patients should be reviewed and assessed in accordance with clinical presentation to determine patient diagnosis. Normal [facility] Comment on above: Performed By: #### Shakeel CANCINO CMP, 1987-08 #### [facility] ([id number]) [address] [place] [address] 39022 ALL CBC WITH AUTO DIFFon BASOPHILS ABSOLUTE AUTO 0 [facility] Basophils/100 WBC (Bld) 0.3 % 0.2 - 2.0 % [facility] Eosinophils/100 WBC (Bld) 0.2 % Low 0.9 - 7.0 % [facility] Erythrocyte distribution width (RBC) [Ratio] 12.6 % 11.0 - 15.0 % [facility] Hematocrit (Bld) [Volume fraction] 36.7 % 36.0 - 48.0 % [facility] Hemoglobin (Bld) [Mass/Vol] 11.9 g/dL Low 12.0 - 16.0 g/dL [facility] IMMATURE GRANULOCYTES ABS AUTO 0.1 High [facility] Immature granulocytes/100 WBC (Bld) 0.7 % High 0.0 - 0.5 % [facility] Interpretation and review of laboratory results Abnormal [facility] LYMPHOCYTES ABSOLUTE AUTO 3.1 [facility] Lymphocytes/100 WBC (Bld) 21.7 % 20.5 - 60.0 % [facility] MCH (RBC) [Entitic mass] 27.2 pg 26.7 - 34.0 pg [facility] MCHC (RBC) [Mass/Vol] 32.4 g/dL 29.9 - 35.2 g/dL [facility] MCV (RBC) [Entitic vol] 83.8 fL 81.0 - 99.0 fL [facility] MONOCYTES ABSOLUTE AUTO 1.3 High [facility] Monocytes/100 WBC (Bld) 9.2 % 1.7 - 12.0 % [facility] NEUTROPHILS ABSOLUTE AUTO 9.5 High [facility] Neutrophils/100 WBC (Bld) 67.9 % 43.0 - 75.0 % [facility] Platelet mean volume (Bld) [Entitic vol] 10.1 fL 9.5 - 13.5 fL [facility] TBH EO # 0 [facility] PLT 389 [facility] RBC 4.38 [facility] WBC 14 High [facility] US OB LIMITED 1+ FETUSESon 0 11-23-2024 [...] II, MD, PHD at 24-Nov-2024 07:59:26 AM [facility] Normal Not Available Comment on above: Order Comment: US OB INCOMPLETE ANATOMY Estimated Date of Delivery: 03/14/25 Gestational Age as of 11/02/2024: 21w1d Urinalysis macro (dipstick) panel (U)on 11-23-2024 Bilirubin, UA Positive Negative - 4(70) +++ mg/dL [facility] Comment on above: 1+ Blood, UA Positive Negative - 50 Villa/mcL [facility] Comment on above: 2+ Clarity, UA Clear [facility] Color, UA Sarai [facility] Glucose, UA Negative Negative - 2000(110) ++++ mg/dL [facility] Interpretation and review of laboratory results Abnormal [facility] Ketones, UA Negative Negative - 160(16) ++++ mg/dL [facility] Leukocytes, UA Positive Negative - 500+++ Pierre/mcL [facility] Comment on above: 1+ Nitrite, UA Negative Negative - Positive [facility] pH, UA 6 5 - 9 [facility] Protein, UA Positive Negative - 2000(20) ++++ mg/dL [facility] Comment on above: 1+ Spec Grav, UA 1.03 1 - 1.03 [facility] Urobilinogen, UA 0.2 0.2 - 12 mg/dL [facility] UA (CLEAN/CATCH) DOUGHNUT DOUGH MIXER/ALINE RO IF IND.on 11-19-2024 BILIRUBIN URINE SMALL Abnormal NEGATIVE [facility] BLOOD URINE TRACE-I NEGATIVE [facility] Clarity (U) CLEAR CLEAR [facility] Color (U) YELLOW YELLOW [facility] GLUCOSE URINE UA Negative NEGATIVE mg/dL [facility] Interpretation and review of laboratory results Abnormal [facility] Ketones Ql (U) 15 mg/dL Abnormal NEGATIVE [facility] Leukocyte esterase Test strip Ql (U) Negative NEGATIVE [facility] NITRITE URINE Negative NEGATIVE [facility] pH (U) 5.5 [pH] 5.0 - 9.0 [facility] PROTEIN URINE Negative NEG/TRACE mg/dL [facility] SPECIFIC GRAVITY URINE >=1.030 Abnormal 1.005 - 1.025 [facility] URINE MICROSCOPIC INDICATED YES [facility] UROBILINOGEN URINE 1.0 EU/dL 0.2 - 1.0 EU/dL [facility] AFP, SERUM, OPEN SPINA BIFID Aon 10-28-2024 AFP MOM 1.64 . [facility] AFP VALUE 69.3 ng/mL . [facility] COMMENT: Comment . [facility] Comment on above: Simi Ewing , Ph.D., [facility] Director References: Available Upon Request. Multiples Of Median Cutoffs For AFP Elevations Andre 2.5 Black 2.8 IDD 2.0 Twins 4.5 Abbreviation Definitions IDD - Insulin Dep Diabetes OSBR - Open Spina Bifida Risk For further inquiries contact [facility] at [phone]. This test was developed and its performance characteristics determined by [employer]. It has not been cleared or approved by the Food and Drug Administration. Performed at: [facility] [employer] [facility] [address] [place], [place] [id number] Corporate Law Assistant: Mahendra Adam [facility], Phone: [phone] GEST. AGE ON COLLECTION DATE 20.1 . weeks [facility] GESTAT. AGE BASED ON Ultrasound . [facility] Comment on above: 17.1 on 10/05/2024 Recalculations are not recommended when gestational dating by LMP and ultrasound are within 10 days. INSULIN DEP DIABETES No . [facility] INTERPRETATION Comment . [facility] Comment on above: Interpretation: Scre en Negative [...] Customer Services to discuss available options. The [employer] recommends amniocentesis be offered to women age 35 and older. [age]QUE [age] [facility] MULTIPLE GESTATION No . [facility] OSBR RISK 1 IN 189 . [facility] RACE . [facility] RESULTS Report . [facility] TEST RESULTS: Negative . [facility] WEIGHT 251 . [facility] N N ULTRASOUND [id number] 1 17 N 1 Y 251 N N N N N White/ [facility] CA ECHO DOPPLER COMPLETEon 0 10-28-[address] [address] Cardiology Report Signed Patient: LIA DESAI MR#: [id number] : 2000 Acct:[id number] Age/Sex: 24 / F ADM Date: 10/27/24 Loc: CARD Attending Dr: Robert Marrero D.O. Ordering Physician: Robert Marrero D.O. Date of Service: 10/27/24 Procedure(s): CA echo doppler complete Accession Number(s): [id number] cc: Robert Marrero D.O.; Physician,Non-Staff Nena Patient Name: LIA DESAI MR#: [id number] : 2000 Exam Date: 10/27/2024 Ordering Doctor: [...] By: APOLLO TENA (more content not included)... [facility] Radiology, Radiologist, MD - 10/28/2024 [place] [address] Cardiology Report Signed Patient: LIA DESAI MR#: [id number] : 2000 Acct:[id number] Age/Sex: 24 / F ADM Date: 10/27/24 Loc: CARD Attending Dr: Robert Marrero D.O. Ordering Physician: Robert Marrero D.O. Date of Service: 10/27/24 Procedure(s): CA echo doppler complete Accession Number(s): [id number] cc: Robert Marrero D.O.; Physician,Non-Staff Nena Patient Name: LIA DESAI MR#: [id number] : 2000 Exam Date: 10/27/2024 Ordering Doctor: [...] TENA Signed By: 10/28/241843 DD/ 42 TD/TT: Deck Mate: [facility] Radiology Study observation (narrative) [facility] CA ECHO DOPPLER COMPLETEOrde red By: Radiologist Radiology on 10-28-2024 [facility] Work Phone: ECG 12-LEADon 10-28-2024 [place] [address] Electrocardiograph Report Signed Patient: LIA DESAI MR#: [id number] : 2000 Acct:[id number] Age/Sex: 24 / F ADM Date: 10/27/24 Loc: CARD Attending Dr: Robert Marrero D.O. Ordering Physician: Robert Marrero D.O. Date of Service: 10/27/24 Procedure(s): ECG 12 lead Accession Number(s): [id number] cc: [facility] Test Date: 2024-10-27 Pat Name: LIA DESAI Department: Room: - Gender: Female [employer]: : 2000 Requested By: ROBERT MARRERO Order Number: [id number] Reading MD: APOLLO TENA M.D. Measurements Intervals Riley Rate: 96 P: 41 NC: 104 QRS: 52 QRSD: 86 T: 21 QT: 334 QTc: 424 Interpretive Statements SINUS RHYTHM WITH SHORT NC INTERVAL MINIMAL ST DEPRESSION [0.025+ mV ST DEPRESSION] Abnormal ECG No previous ECG available for comparison Electronically Signed On 10-28-2024 7:03:40 EDT by APOLLO TENA M.D. Dictated By: APOLLO TENA Signed By: 10/28/2470210/28/24702 DD/ 36 TD/TT: Deck Mate: [facility] Radiology, Radiologist, - 10/28/2024 [place] [address] Electrocardiograph Report Signed Patient: LIA DESAI MR#: [id number] : 2000 Acct:[id number] Age/Sex: 24 / F ADM Date: 10/27/24 Loc: CARD Attending Dr: Robert Marrero D.O. Ordering Physician: Robert Marrero D.O. Date of Service: 10/27/24 Procedure(s): ECG 12 lead Accession Number(s): [id number] cc: [facility] Test Date: 2024-10-27 Pat Name: LIA DESAI Department: Room: - Gender: Female [employer]: : 2000 Requested By: ROBERT MARRERO Order Number: [id number] Reading MD: APOLLO TENA M.D. Measurements Intervals Riley Rate: 96 P: 41 NC: 104 QRS: 52 QRSD: 86 T: 21 QT: 334 QTc: 424 Interpretive Statements SINUS RHYTHM WITH SHORT NC INTERVAL MINIMAL ST DEPRESSION [0.025+ mV ST DEPRESSION] Abnormal ECG No previous ECG available for comparison Electronically Signed On 10-28-2024 7:03:40 EDT by APOLLO TENA M.D. Dictated By: APOLLO TENA Signed By: 10/28/24 0710/28/24702 DD/ 36 TD/TT: Deck Mate: [facility] ECG 12-LEADOrdered By: Radio logist Radiology on 10-28-2024 [facility] [employer] Work Phone: ECG 12-LEADon 10-27-2024 Radiology Study observation (narrative) [facility] US OB 14+ WEEKS ANATOMY SCAN on [...] II, MD, PHD at 27-Oct-2024 07:25:37 AM [facility] Normal Not Available Comment on above: Order Comment: US OB ANATOMY SINGLE W US OB CERVICAL LENGTH Estimated Date of Delivery: 03/14/25 Gestational Age as of 10/05/2024: 17w1d Urinalysis macro (dipstick) panel (U)on 10-26-2024 Bilirubin, UA Negative Negative - 4(70) +++ mg/dL [facility] Blood, UA Negative Negative - 50 Villa/mcL [facility] Clarity, UA Clear [facility] Color, UA Yellow [facility] Glucose, UA Negative Negative - 2000(110) ++++ mg/dL [facility] Interpretation and review of laboratory results Normal [facility] Ketones, UA Negative Negative - 160(16) ++++ mg/dL [facility] Leukocytes, UA Negative Negative - 500+++ Pierre/mcL [facility] Nitrite, UA Negative Negative - Positive [facility] pH, UA 6 5 - 9 [facility] Protein, UA Negative Negative - 2000(20) ++++ mg/dL [facility] Spec Grav, UA 1.02 1 - 1.03 [facility] Urobilinogen, UA 1.0 0.2 - 12 mg/dL [facility] B-TYPE NATRIURETIC PEPTIDEon 10-15-2024 Natriuretic peptide B (Bld) [Mass/Vol] 5 pg/mL Normal <=100 [facility] Comment on above: Performed By: #### [facility], 1987- #### [facility] ([id number]) [address] [place] [id number] CBC WITH AUTO DIFFERENTIALon 10-15-2024 BASOPHILS ABSOLUTE COUNT (10*3/UL) BY AUTOMATED COUNT 0.0 10*3/uL Normal 0.0-0.2 [facility] Comment on above: Performed By: #### 2 106-3 #### [facility] ([id number]) [address] [place] [id number] BASOPHILS RELATIVE PERCENT BY AUTOMATED COUNT 0.2 % Normal [facility] Comment on above: Performed By: #### 2 106-3 #### [facility] ([id number]) [address] [place] [address] 25042 CELLAVISION DIFFERENTIAL TYPE AUTOMATED DIFFERENTIAL Normal [facility] Comment on above: Performed By: #### 2 106-3 #### [facility] ([id number]) [address] [place] [address] 19583 Eosinophils (Bld) [#/Vol] 0.0 10*3/uL Normal 0.0-0.4 [facility] Comment on above: Performed By: #### 2 106-3 #### [facility] ([id number]) [address] [place] [address] 73649 EOSINOPHILS RELATIVE PERCENT BY AUTOMATED COUNT 0.3 % Normal [facility] Comment on above: Performed By: #### 2 106-3 #### [facility] ([id number]) [address] [place] [address] 27132 Erythrocyte distribution width (RBC) [Ratio] 14.1 % Normal 11.5-15 [facility] Comment on above: Performed By: #### 2 106-3 #### [facility] ([id number]) [address] [place] [address] 55731 Hematocrit (Bld) [Volume fraction] 38.7 % Normal 35-47 [facility] Comment on above: Performed By: #### 2 106-3 #### [facility] ([id number]) [address] [place] [address] 29592 Hemoglobin (Bld) [Mass/Vol] 13.0 g/dL Normal 11.7-15.5 [facility] Comment on above: Performed By: #### 2 106-3 #### [facility] ([id number]) [address] [place] [address] 88959 LYMPHOCYTES ABSOLUTE COUNT (10*3/UL) BY AUTOMATED COUNT 2.4 10*3/uL Normal 1.0-3.5 [facility] Comment on above: Performed By: #### 2 106-3 #### [facility] ([id number]) [address] [place] [address] 71892 LYMPHOCYTES RELATIVE PERCENT BY AUTOMATED COUNT 18.3 % Normal [facility] Comment on above: Performed By: #### 2 106-3 #### [facility] ([id number]) [address] [place] [address] 09343 MCH (RBC) [Entitic mass] 27.1 pg Normal 27-34 [facility] Comment on above: Performed By: #### 2 106-3 #### [facility] ([id number]) [address] [place] [address] 52611 MCHC (RBC) [Mass/Vol] 33.7 g/dL Normal 32-36 [facility] Comment on above: Performed By: #### 2 106-3 #### [facility] ([id number]) [address] [place] [address] 74501 MCV (RBC) [Entitic vol] 80 fL Normal 80-100 [facility] Comment on above: Performed By: #### 2 106-3 #### [facility] ([id number]) [address] [place] [address] 52534 MONOCYTES ABSOLUTE COUNT (10*3/UL) BY AUTOMATED COUNT 1.0 10*3/uL High 0.0-0.9 [facility] Comment on above: Performed By: #### 2 106-3 #### [facility] ([id number]) [address] [place] [address] 12557 MONOCYTES RELATIVE PERCENT BY AUTOMATED COUNT 8.0 % Normal [facility] Comment on above: Performed By: #### 2 106-3 #### [facility] ([id number]) [address] [place] [address] 27624 NEUTROPHILS ABSOLUTE COUNT BY AUTOMATED COUNT 9.5 10*3/uL High 1.5-6.6 [facility] Comment on above: Performed By: #### 2 106-3 #### [facility] ([id number]) [address] [place] [address] 94616 NEUTROPHILS RELATIVE PERCENT BY AUTOMATED COUNT 73.2 % Normal [facility] Comment on above: Performed By: #### 2 106-3 #### [facility] ([id number]) [address] [place] [address] 46311 Platelet mean volume (Bld) [Entitic vol] 9.2 fL Normal 7-12 [facility] Comment on above: Performed By: #### 2 106-3 #### [facility] ([id number]) [address] [place] [address] 97782 Platelets (Bld) [#/Vol] 362 10*3/uL Normal 150-450 [facility] Comment on above: Performed By: #### 2 106-3 #### [facility] ([id number]) [address] [place] [address] 22393 RBC COUNT 4.82 X10E12/L Normal 3.8-5.2 [facility] Comment on above: Performed By: #### 2 106-3 #### [facility] ([id number]) [address] [place] [address] 54894 WBC (Bld) [#/Vol] 13.0 10*3/uL High 4-11 [facility] Comment on above: Performed By: #### 2 106-3 #### [facility] ([id number]) [address] [place] [address] 21117 COMPREHENSIVE METABOLIC PANE Alex 10-15-2024 Albumin [Mass/Vol] 3.4 g/dL Normal 3.2-5.3 [facility] Comment on above: Performed By: #### C BCA, CMP, 1987-08 #### [facility] ([id number]) [address] [place] [address] 69799 ALP [Catalytic activity/Vol] 76 U/L Normal 39-130 [facility] Comment on above: Performed By: #### [facility], 1987-08 #### [facility] ([id number]) [address] [place] [address] 10016 ALT [Catalytic activity/Vol] 11 U/L Normal <=31 [facility] Comment on above: Performed By: #### C [facility], 1987-08 #### [facility] ([id number]) [address] [place] [address] 56305 Anion gap [Moles/Vol] 11 mmol/L Normal 5-15 [facility] Comment on above: Performed By: #### C [facility], 1987-08 #### [facility] ([id number]) [address] [place] [address] 65758 AST [Catalytic activity/Vol] 17 U/L Normal <=41 [facility] Comment on above: Performed By: #### C [facility], 1987-08 #### [facility] ([id number]) [address] [place] [address] 64921 Bilirubin [Mass/Vol] 0.7 mg/dL Normal 0.3-1.2 [facility] Comment on above: Performed By: #### C [facility], 1987-08 #### [facility] ([id number]) [address] [place] [address] 62619 Calcium [Mass/Vol] 9.0 mg/dL Normal 8.5-10.5 [facility] Comment on above: Performed By: #### C [facility], 1987-08 #### [facility] ([id number]) [address] [place] [address] 52121 Chloride [Moles/Vol] 105 mmol/L Normal 98-109 [facility] Comment on above: Performed By: #### C [facility], 1987-08 #### [facility] ([id number]) [address] [place] [address] 23409 CO2 [Moles/Vol] 21 mmol/L Low 22-32 [facility] Comment on above: Performed By: #### C [facility], 1987-08 #### [facility] ([id number]) [address] [place] [address] 31719 Creatinine [Mass/Vol] 0.71 mg/dL Normal 0.40-1.00 [facility] Comment on above: Result Comment: METH OD TRACEABLE TO IDMS STANDARD Performed By: #### C [facility], 1987-08 #### [facility] ([id number]) [address] [place] [address] 60324 EGFR (CKD-EPI) NON-RACE DEPENDENT >^90 Normal >=60 [facility] Comment on above: Result Comment: eGFR not reported due to non-numeric value for Creatinine. Reported eGFR is based on the CKD-EPI 2020 equation that does not use a race coefficient. Performed By: #### C [facility], 1987-08 #### [facility] ([id number]) [address] [place] [address] 08515 Glucose [Mass/Vol] 80 mg/dL Normal 65-99 [facility] Comment on above: Performed By: #### C [facility], 1987-08 #### [facility] ([id number]) [address] [place] [address] 74386 Potassium [Moles/Vol] 4.1 mmol/L Normal 3.5-5.0 [facility] Comment on above: Performed By: #### C [facility], 1987-08 #### [facility] ([id number]) [address] [place] [address] 87978 Protein [Mass/Vol] 7.1 g/dL Normal 6.0-8.0 [facility] Comment on above: Performed By: #### C [facility], 1987-08 #### [facility] ([id number]) [address] [place] [address] [place] [address] Sodium [Moles/Vol] 137 mmol/L Normal 134-146 [facility] Comment on above: Performed By: #### C HILLARY CANCINO, 1987-08 #### [facility] ([id number]) [address] [place] [address] 69592 Urea nitrogen [Mass/Vol] 6 mg/dL Normal 5-23 [facility] Comment on above: Performed By: #### Shakeel CANCINO CMP, 1987-08 #### [facility] ([id number]) [address] [place] [address] 27627 MAGNESIUMon 10-15-2024 Magnesium [Mass/Vol] 2.0 mg/dL Normal 1.8-2.6 [facility] Comment on above: Performed By: #### Shakeel CANCINO CMP, 1987-08 #### [facility] ([id number]) [address] [place] [address] 76640 TROP I, HIGH SENSITIVITY 1 H OURon 10-15-2024 TROPONIN I, HIGH SENSITIVITY <^2 Normal <16 [facility] Comment on above: Performed By: #### Shakeel CANCINO CMP, 1987-08 #### [facility] ([id number]) [address] [place] [address] 43825 TROPONIN I, HIGH SENSITIVITY 0 HOURon 10-15-2024 TROPONIN I, HIGH SENSITIVITY <^2 Normal <16 [facility] Comment on above: Performed By: #### Shakeel CANCINO CMP, 1987-08 #### [facility] ([id number]) [address] [place] [address] 95919 IGP,APTIMA HPV,AGE GDLNon AGE GDLN ACOG TESTING Note . [facility] Comment on above: TESTS RESULT FLAG UN ITS REF RANGE LAB Clinician Provided Cytology Information Source.............Cervix No. of containers..01 ThinPrep Vial Age Jerica MAN Marielos... FLAG LEGEND: L-Low Normal,H-High Normal,LL-Alert Low,HH-Alert High <-Panic Low,>-Panic High,A-Abnormal,AA-Critical Abnormal Performed at: 01 =G [address] [address] Kylee Rivera MD, IGP, RFX APTIMA HPV ASCU Note . [facility] Comment on above: TESTS RESULT FLAG UN ITS REF RANGE LAB DIAGNOSIS: 02 NEGATIVE FOR INTRAEPITHELIAL LESION OR MALIGNANCY. Specimen adequacy: 02 Satisfactory for evaluation. Endocervical and/or squamous metaplastic cells (endocervical component) are present. Performed by: 02 Vilma Lennon Sewer Repairer ([facility]) . 02 Note: Note 03 The [...] High,A-Abnormal,AA-Critical Abnormal Performed at: 02 [facility] [address] [address] [place] [address] Med Campbell MD, 03 WB [facility] [address] [address] Kylee Rivera MD, Performed at: =G - [facility] [address] [id number] Corporate Law Assistant: Kylee Rivera MD, Phone: [phone] Performed at: [facility] [address] [address] [place], [place] [id number] Corporate Law Assistant: Med Campbell MD, Phone: [phone] SPATULA-ALONE CERVIX CLINIS[facility] RECURRENT VAGINITIS (HTRX)on 10-06-2024 ATOPOBIUM VAGINAE 0 [facility] ATOPOBIUM VAGINAE Not detected [facility] BVAB 2,3 (BACTERIAL VAGINOSIS ASSOCIATED BACTERIA 2, 3); MOBILUNCUS SPP 0 [facility] BVAB 2,3 (BACTERIAL VAGINOSIS ASSOCIATED BACTERIA 2, 3); MOBILUNCUS SPP Not detected [facility] YANG ALBICANS, PARAPSILOSIS, TROPICALIS 0 [facility] YANG ALBICANS, PARAPSILOSIS, TROPICALIS Not detected [facility] YANG GLABRATA 0 [facility] YANG GLABRATA Not detected [facility] YANG KRUSEI 0 [facility] YANG KRUSEI Not detected [facility] CHLAMYDIA TRACHOMATIS 0 [facility] CHLAMYDIA TRACHOMATIS Not detected [facility] ERMB, C; MEFA 25.809 Abnormal [facility] ERMB, C; MEFA Detected Abnormal [facility] GARDNERELLA VAGINALIS 29.457 Abnormal [facility] GARDNERELLA VAGINALIS Detected Abnormal [facility] Interpretation and review of laboratory results Abnormal [facility] MEGASPHAERA (TYPES 1, 2) 0 [facility] MEGASPHAERA (TYPES 1, 2) Not detected [facility] MYCOPLASMA GENITALIUM 0 [facility] MYCOPLASMA GENITALIUM Not detected [facility] NEISSERIA GONORRHOEAE 0 [facility] NEISSERIA GONORRHOEAE Not detected [facility] TET B, TET M 26.802 Abnormal [facility] TET B, TET M Detected Abnormal [facility] TRICHOMONAS VAGINALIS 0 [facility] TRICHOMONAS VAGINALIS Not detected [facility] Urinalysis macro (dipstick) panel (U)on 10-05-2024 Bilirubin, UA Positive Negative - 4(70) +++ mg/dL [facility] Comment on above: small Blood, UA Positive Negative - 50 Villa/mcL [facility] Comment on above: trace Clarity, UA Clear [facility] Color, UA Yellow [facility] Glucose, UA Negative Negative - 1999(110) ++++ mg/dL [facility] Interpretation and review of laboratory results Abnormal [facility] Ketones, UA Positive Negative - 160(16) ++++ mg/dL [facility] Comment on above: 15 Leukocytes, UA Negative Negative - 500+++ Pierre/mcL [facility] Nitrite, UA Negative Negative - Positive [facility] pH, UA 6.5 5 - 9 [facility] Protein, UA Positive Negative - 1999(20) ++++ mg/dL [facility] Comment on above: 100 Spec Grav, UA 1.025 1 - 1.03 [facility] Urobilinogen, UA 1.0 0.2 - 12 mg/dL [facility] Coding Summaryon 09-23-2024 Coding Summary HTMLBase 64 NjcejnpeDVx3uLy+PGhlY WQ+UH4UKPPkT42ydSQazP 7gG5JXVVcTEzwrOIXDJUl KEbYmlkCrOR4jfZBbDMRu IC8+XZ8lHMSmXyikxTNdw 7J2qEG2B00fnt9oRFidoP R4NWPjQeArrwufk7cqlNe 6IDcuNmluOyBt WVVceF47EZY5fT39Ga29e GKqvNKto7fmdCd6MxTiQI TcPYM6iTvdXZllm0LzYRJ dX08vbNRzs2D0 DRBdgEcuzVAbVjRlwDA0s H7gVLjdipjtp6sctkncLa l2fq64dPLuw8Z3aOL2K0Y ixlU0ZBGccMQb FpyiqVGIbO1ywnbsf1zws hoiIeWmROBtDHc9JGd0MX VgoJurBiHxNK92UJF9KUJ ofpSyS1EgLPPq yOvvVwE0p1X1Hy4OM6DVV thbF8YGNFYRTQzzsPW+PC 88fq93L8ZzMbevTnh9HUH gXFT7mGC8dC1r KJQmSEgsn5Y9dTA3Z9Sml kCqeq9yw4aoVNIyKGydS6 9fzHRzb6B8UIBlvDF1ZNC baEiqCkEpdD65 Oyc+PLOmaCemd7AvQsmnz 8ruc5auxWw9DodcJSYsma CdeVjjRCB7z7SgCb2vWGE etTP7xYA3rN0p ZcYfZiB9TMhkE600ErFto XYwFzscO06jY6GqwUP+PH QoRsu7DOAxxUbjKH8gA5Z hZGRpbmctbGVm mLlvLP4ySLAcyzbcGPDly V2eZQUaY3w4XjBnEsE4RP deD7DvDWIaquatLi08lJ6 lMnPnTcE0NOhs T7GqscX9TCCfdVYlPUjcS KA2M94nh5Q4RDIkHJHpOT J6kPT0uO9vwDsekdtpfJY mdDsgdmVydGlj PMteODkrU481UXLxkZdeC kNvZGluZyBEYXRlOiAgMD YvMTgvMjAyNTwvdGQ+PHR kQMC2uHonBFPn iQXxRZbhDt3moBixyZykT J8kITOmtwgkGIHviY7qWF KrzEHopMlbZF8hUKWuulv ye406BkEgFJQ3 YRWkeCShF9HtgY6hKmZyA XUiACNeX8AuwQNuKKzwP9 98HSvmGgV7HGFrgsRgO2I sLWFsaWduOiB0 n4F8Nu3Ek2AmxwjsM7Cuw XBnQeQqApqzHOd8U0KnOb wvdHI+QD86XGFaNW82YNx 0DZZ7gAtwESxh SXIlS2JnpC8wFdZdLQYnZ GRkOyc+PHRhYmxlIHdpZH RoPScxMDAlJyBzdHlsZT0 kXe8hIWDdRCZy nRbmnAUyUrMwj8zdVCTpX PvxRU0yyWogZ8DzaFX0KQ Rbm9k3Dt79R19qP8WbqKS +MSHvcYB2mHB5 oR5lCzPaNjF9POekC539I rEsfFJkTpweg5ttr6hlhQ b2BvT3UPLvrpJiiBiwZYX 3y6RlVb95Q75v IHdpZHRoPSIxNSUiIHZhb Kduvr7wgH6cQb8+PGNvbC J1mPT9rB7jDmFfHuR2SVs xH917SpLhjACe Gmbbd7wex0jdwYi4GpFyQ KKcezHzqHevNYE4y8CjWp 74B8DcnWuau4AtXic7za0 0rWViv5D4tWB3 W6GyAFVnfmamgYXxrLazW K6jOHVpogaaKYMqvG2qME QhJ0p9AwYrTgD3IGrsF3G fhyR9FZEzoQFs ABCixLKJlT4mxhskc5ajp bkuFqAoQKGyOOe9KRl0QN YuzPkfSvIbTTB4BtO7DTB 6bETqsI8mbOxa ybexqP5qVlg+EBM7eHZsz SILAR1pBubdxYB+PHRkIH B9lYhcXUebDLEqbZ2vLFF gF7x2RyToRqX2 WLxiY1VqfgI3IGOupZCqO MEofIJLeZ2rhxvyh0nhfl seZtPyAZDzCIo5YQk4TAH saWduOiBsZWZ0 UdH3VNV3fUNaeO5bjJfms qzgvT9tClb+QmlydGggRG H8XIg2L4KxKnz4DUNbsZs mQX5stBCaHLxm Dk9xuNtisXvySH3eQKKti fydx034YeEdg7mtZUFjfH KiFHrkUWF4Z66ft4A0UKR uFIXsNKO2kFG3 sS5pqDxenuftuHIgoLupo uOqqZnmYVmuIIbcF989NM ItkKqqEjDrLPp8P9CqSke 6BZOsgPygIO0g iGXuGDgeAt8vnIcigMjdX O5eCOHthbatu208YvCrx2 wxZAQjrYFtOJuhAIG6C03 dg5F6POSsUSPs TGM4tLR0lC7kkJgyrusax GVmdDsgdmVydGljYWwtYW biR679HFOzpWdaPrNvmDe 7D1BwXmc1HZAi tMspOC5dvHSoTTitAc1bt VnoeEcpRZ9oDRTvbcfin3 16TtJbm0jwHQFlpUKwDHl mIXA5E07lf3H6 UCXkZNSzZMK4rYC3eN6vv GlnbjogbGVmdDsgdmVydG ocPGgdVEseQ118GMCaxIt nPlBhdGllbnQg GZfaYKf8I4LtQykdbKX+P M17BMOwOY82kOHxmPQan7 vfxJw6AjQjAZYxJBL3uRm oFCkxc8QdFHGb G48gsOAhd1Y9WKWujLaux HDpBhMduYQ6pD1kRWqutl ear4omrvxeUnwcu8ehpy5 3nQ77D60eJFyr ZHRoPSIzMCUiIHZhbGlnb g7lmT9jIu7+KROofTC9qJ U8yX3uIIJdPyD6NVzjM73 9InRvcCIvPjxj x1kbs1fzqIz6IhW1AMWfw uPguUhlRFB8y6AxTe67N2 9sIHdpZHRoPSIyMCUiIHZ dpBkxau1qkH9o Ii8+APWgcWQ2pPZ8pC7cN eRiGlX7ZGarO759IcEgbB FbEzzrX34sM3LbvQZ+PHR nAmy5XGPiwHhq PY6ncCCsXPyuEr1rROP0Z gQqTkHlAAfkQ8SeUZAern qweaxmzXK8IBRlBUCgjR6 3Gv5ixFkhGZGl mBMGgR0iiypty4dfzubkE lJkEREaNYn1CKy0USOcfX coDcZpRPW4VmK5HKU5aRZ lsP6nwXsfewmo sJ5wG1MaAHChzsewIg85w R3fXsXpOeH4RLkyMuy+R0 kVIlVOSLqyM3tTQVGQYAe UIM4ZSRwahFE+ KTXhQSP6tTzcSTenSXFrs C6xMDHzF3f1NrZqRhL5ZL zxZ1BwCHEfbkygVo62oV2 bOmThPyP6PBqv E6OmpqE8VYDklNIkIXsvS ZU2E96xr7P6HQAaBGCfQI T4zUY4sW7hyOjogyskqWC mdDsgdmVydGlj JQarSFoyN417NGEtfSadQ uZ5EqZbCmCjOHD2P1FqTd m1IBCdlZqgGO5hcJDtAKp lRo9qwDwwdEgn NY3wHNHkcybzLRYxeE1xT VVdsWRsjYfkXG3fUMNrim boq758ZfTmHCI5GNCznUO iS3WkfR0yMuNc KOJiHXQjO6XevUWjIGyrX 404IGuiQhN9VROyixYoU7 GdUNMbjQtfZtI4b1L4Kn1 yMiBZZWFyczwv dGQ+OAXqCBE4dAuhBWexN VInqV6cWHSpJ7t0BkTrJp D5VUyuI5WhUXJldalxTm1 7mU3kLdNdMlV2 BUvaO1HjkiK0TPEwcUTdS TboEUG6J58mj4V6MNEdUG EkKQF2vMF8cV4pnAztttf gbGVmdDsgdmVy zNlkHVyeWQgnJ707IQUex DsnPkZFTUFMRTwvdGQ+PH VcQSD2wBzqJDmmJTTkmD0 sTMGwI5x0EfUa FhJ2GQffC8UeSLRiqbscI y78wI1ySsIoQuT5UAkeY3 TghvT4DHWlcBNpTVdyMCO 5D52qo9U5QECs UGMgGSH1bNR1qI1esLyds jogbGVmdDsgdmVydGljYW wdMWvvM605LGUtjCytBf2 RMB41JS20A6Mo PjwvdGFibGU+PHRhYmxlI HdpZHRoPScxMDAlJyBzdH muZS2rKn5aIIOpBSOpzBc rvYNzFvOiz1wx ESTnFFxuEN9fbLnwE1Owq XQ0FBRzr8l5Et62S41cC8 JvdXA+FMPtjAL1lNN9pB7 qDdXzHjB0YSee N933WaZcpERbRppso7sbk 3tguXi5IiPkUYSxmmDyeA fvLGE9d4NrUo73P19qEQt pZHRoPSIyMCUi QTAkwNslzz6rfH9rJk4+P ZTckLM5aDF1wQ8yUnSqRb V1DIieL414ZwUdyJLnUsi rP92kM3ZjzVY+ GQZnOqu7ZIDzwDkjYI2jw GPcWGafWy7cYGS4TxBaOm MrZTzsM2AiXPKxlyjniak nbPU1PTWzWXYy iZ10Ol7cdZroZi1qYKInO KJ5VCNrgRVaM0OfmT1dUf WtSZFoVOEoX8ZqlAHoXDw eS812QLrdOaI0 GVJbnuToF3AdEQPbuGdzH rT7a5J4Vc1XkHzisCAxBE 9sWsQlFBc6M6CiXhm4EIN mgPekUY1fbXUt EYcgCe6dpLziqGhdBL9aA MZcvuvpb428MvVwr5dnXD TsdZLoBMjsHPB6L32ck5F 2GPMnPBYyLZQ4 sPK3hE5cxVmjxvbrxQBxi DsgdmVydGljYWwtYWxpZ2 70RGOrvQzxCvEBOng1T1I nPgt3PNLdoVjk UJ9nhKOuGZyeIx6atVgqa KzeIT8yAOOxxgwbs885Ei Yyy7vkMUMijBPcCOrlDRC 1C84tb3X0GLMd ATZxTLK9jGL2qT2wsTxrs jogbGVmdDsgdmVydGljYW viAIrxA936QCGxiWgsHk7 NCox8Q6DlVgb4 CJRfcKvjVI6doDToOZqkI s2hgHpsuXxsAH8sLQPert hac126OeQvt1wzMZLxjSF oSKlcOYO8C24y s5O7TLGyAQDgDYA5zWY0k K7ljVllplrufCNnyZmngw MjnBnfCSrmWRbdZ856RML vcDsnPlBheWVy OjwvdGQ+BI79fj18F1XuN qqhNac0HGRxWMS4lIM9jB 8dDYUnQVqlj7H3aOH4M1L ryrQvay7mu3cj YXB (more content not included)... [facility] POCT Rapid Strepon S. pyogenes Ag IA Ql (Unsp spec) Negative Invalid Interpretation Code [facility] Comment on above: Performed By: #### 1 [id number], [id number], [id number] #### [facility] (DEFAULT) [address] [place] [address] ALL RUBELLA IGG ABon 025 RUBELLA ANTIBODIES, IGG 1.46 Immune >0.99 index [facility] Comment on above: Non-immune <0.90 Equivocal 0.90 - 0.99 Immune >0.99 Performed at: - [facility] [id number] Corporate Law Assistant: Yvan Bolton PhD, Phone: [phone] HCV ANTIBODY RFX TO [facility] [place] 09-08-2024 HCV AB Non-Reactive Non Reactive [facility] INTERPRETATION: Comment . [facility] Comment on above: Not infected with HC V unless early or acute infection is suspected (which may be delayed in an immunocompromised individual), or other evidence exists to indicate HCV infection. No Panel Informationon 09-08 [facility] Urinalysis macro (dipstick) panel (U)on 09-07-2024 Bilirubin, UA Positive Negative - 4(70) +++ mg/dL [facility] Comment on above: small Blood, UA Negative Negative - 50 Villa/mcL [facility] Clarity, UA Clear [facility] Color, UA Yellow [facility] Glucose, UA Negative Negative - 2000(110) ++++ mg/dL [facility] Interpretation and review of laboratory results Abnormal [facility] Ketones, UA Positive Negative - 160(16) ++++ mg/dL [facility] Comment on above: 15mg/dL Leukocytes, UA Trace Negative - 500+++ Pierre/mcL [facility] Nitrite, UA Negative Negative - Positive [facility] pH, UA 7.5 5 - 9 [facility] Protein, UA Positive Negative - 2000(20) ++++ mg/dL [facility] Comment on above: 30mg/dL Spec Grav, UA 1.02 1 - 1.03 [facility] Urobilinogen, UA 2.0 0.2 - 12 mg/dL [facility] Coding Summaryon 08-19-2024 Coding Summary HTMLBase 64 EjluykhdIAb3oNz+PGhlY WQ+HD8UEYYeE51poGYudT 1jR2ASIBhPGwvfTDCVLFv HFmPmjkPyLX8mmYSoHHBf IC8+VD9oHDFhIpmpnUKmc 1F0rGK8K20vpu5nFHhimE G4RUTvBeBmxeghb4vdtWm 6IDcuNmluOyBt WRKnsU80RJN1uD69Vq00f XOfjTBjt6wwkNx8VuBxYS YrANR5gNyxZVhoj3PiHIL jV40fzDUhd4B7 TUQjxPcwsGShDaWwjSJ4c F4iKDlqrlunh8wrvdgsPn a8si53vNChj2K9wBN5A0Q wikC5MOYijHOc LzbflTHIoB7gkyjmk5hri uggMzCnRGQoGUf3VBw1ZV JykTofCcHvTF29SYG5YVU pzcLqM4ExPGNo iQpuLpF9e6P5Pf7ZN6KHB himL7UDORENBGsfnAV+PC 33ps97J6CtRflgSjc1SWM xIBR4cXF1oT3x TEDhRGghe4Q4hLZ6L9Uju uMpyi0tw2mzCXPfENofO3 3qkVXtj6U9IITcvHR9XSI yqEpqHjQngO57 Oyc+WNAcaUirq9KvIzrtc 2ipr3sgyUa6XscuUQCosa LxaXfaIVE8o7ZzVo0mUMF riHV4wVR3tF8v RgXyVwW3OHviF527QpLuu WFlUsxwG53tN1JbpJU+PH EoQxg0TOZgpCwqGZ4dY0S hZGRpbmctbGVm aSpcHL0iQTCchkxsAOCdq E4hTLLcN6f2QeArTdN5AR baF6YcIPEfsktlRa30rO8 gWuTbClK7PQkn X9NadjV3XSDpwCIcASibR RD2E33ah5L4OSMpNPLiIW Z1jZQ9sF6ybEofhoslcVU mdDsgdmVydGlj CAefKOhhT481HZGszGpaP kNvZGluZyBEYXRlOiAgMD UvMTQvMjAyNTwvdGQ+PHR zESI3pEjrALYc rVVeVRflHo9zeGdwdKgyJ Q2wOZIvzszlUTXniB2rPW VrsWRtmGgtUZ8cVJHzpcp hb706OsXgTNG5 SXXsmFEwY9SlhM5oSiLlE IHqQWAbV6XlpNRwTXdfS0 10KXxpGsE2ODDyjsQjI4I sLWFsaWduOiB0 e6E1Aq3Lt0SuvpvnU1Lgk MTiNwSyHbwkLMv1U9DtGt wvdHI+AK01KQCrVI18TUk 9XSH6tUwmWNyb MDXwW7CvpI8dZqYwDQUuR GRkOyc+PHRhYmxlIHdpZH RoPScxMDAlJyBzdHlsZT0 bBx2sHVKpFLYo kFsfmNZqXzNmu7yvRHRwW SixKR6piXdmM6PbwWE4ZE Aqd7i7Ij62C48iN0IiuDP +ZTFnyLD1dNG0 gF0hFkNhWuR6DDmoF687C aCnqNDjNvram1fae8voyU u8LbP9MLXiuxCwyCbhTXS 1g0EvEa00P98c IHdpZHRoPSIxNSUiIHZhb Laskn6nxZ0cEn8+PGNvbC M3kTI3jP2aEiPtRrR3KPg mV596VyWufKOd Rbiux9bde0dhyZd5HeNpC BFbmaMjdItuIPD3u0YjPe 50V9EkrIvwi6LvHmv5lc1 9xAAgx1Y9uCO9 L7KgVUOcowbznGEssUegD U6zMWXmgmuuRFEwjB6zGW BcT9p1YhLoIuJ4ZDtqB2V tcvP4AIRznNGp KIHdjSBThI4ezmryp0zxd guhGoDuUIEzPCt1AFx6SI TwnRqhWqOkHWL4YhH9GZZ 9mRJoxK3zxCev pamcvW4iFtn+FKX8uSOmw UQAFM8gCoiuoJZ+PHRkIH O0iGriTYsyNCFvzL1rSDX uJ3r5BxCrZjY0 QQtvU0GxndB8IXJriGYrU LBvtCCXgB6dtdydn7owva kuAdIqWQUiJPf4WKl1DQS saWduOiBsZWZ0 LwX3QGD7rCQmsZ0mcZshf saunO0cOmc+QmlydGggRG W6JEd8L2FqAss0SVZswSw pXJ7olSUwHHbb Up1mgWvgtYtcKO3jKQPjb nhhg595HgEvw4trXGRowH SxOQtrFAO5A14bx5B8YBI xMBYnXLA9oFJ6 rL7qlUyjdugqsINpiOphi sGecOrnJXnkBSelR849SN VdfGbvFxHpGPs0I3HiTgc 7PPYdhGbhIF7l gJAsFSzyYf8hhMhcnPtjB Q8rWGCwirlhs363ShYjf8 pyPWUwrFZyBAycLEX7V62 po1B8VAJhBHCp WSS7iOT0aG7euXfpbvwor GVmdDsgdmVydGljYWwtYW kvI771LIBcmAjcByYfoOr 3J4FaZno7SXSf qZncPA5ohANfUVckBv0xp EnsfYziOQ6iSCHxqvatc6 38NeLxl8nlJAIppQQvVEt nHJK8F47xz8D7 FIUnTCClEWC8mRH0rE2no GlnbjogbGVmdDsgdmVydG arMQifASqwF766ATAafUh nPlBhdGllbnQg LCzuVLh5X5DcTxxtvTD+P X73JDEnJL24iMTtrCHui5 ctbGw3RdBnJPOeZHT1sZt tCJges2MlQOJx K45dyFRoa5I1YTKqyVsjn OVlUrZusSG7nL4oHFpwvi fmc5lfiftuFhdtt9cstn6 4yL45Q22eEZmv ZHRoPSIzMCUiIHZhbGlnb s7ktE1iIc8+CHQgzMC9eM G7gR4oHLHhVfQ1VFqwF12 9InRvcCIvPjxj k1hbu2mwbFf4LdE9MWYnk uBblJydIZZ2x8ViZe93S2 9sIHdpZHRoPSIyMCUiIHZ bsCttcw1hlS8y Ii8+MPHsrCZ7vEJ7dY7pD kFsAbP3PPdlC192CeDqeI SvGocxR05qE1SbkHF+PHR jTyc9EZGobKnk QW0qjOGeMZajCx5jNNU3S gAtTeBaSNmxC2BhUVEgba mzboxxnCV9ATLoMPLsuR2 8Zu7nhXqjTYFj tFDZsN3kflico5ztwotbK gYkVAXlFVl2PBk0XYUgtN dnTiEpKBH9GcU1SUU6vXQ ctJ5grFrfisvl uK2kR0HcFYHhfkleGj79z R4gLdTgXsF4LFqhPzv+R0 jYXvHSBPuoH0hCRUSUFPs NDF1SILasdPL+ JWZoZPD8sOwxOFphTUSlj R2fZHJbU7i5SwHzGfH5XL xlU8JqWCHvvqvuPj49nN3 rLeAaEmJ4NLul X5CnwmF3IXIqiZUdQNvmD UX4A61uh0D2HXKjAYHmBJ N7jXU2lS5rtSdmlspugXN mdDsgdmVydGlj UZbaPLliZ529GXRiaXvdG aY7DnMqQoDyZGV3N2LlSe t7OXZqrKhvSF1sqTVaGNr jTp6qkRmyvHmo JP1cZOLparavMGIhcW9cQ XRdpSInuVhqAX1iAJNkrx jei127FeXjSWN7ZHNbpYX vN7QtaZ9lYqZp IKIsPEEhZ0EutINyJWgtL 165ZTihVrI5PRKhyoHbC7 TcNDNypClyYoR9b4P6Tk5 yMiBZZWFyczwv dGQ+MRYaSNN2mVlfHXucJ KEvbP9yXBKvV9j6ElPcOq S7XFzsW2CdHXYsgujgPm1 0cO6vFwSnTpR8 OVvaW7XrnqW3SIKnuGWlL IbjERK7J88fk9W9MFLpDK JdWBW2fEP1aO8euAgdlpq gbGVmdDsgdmVy xJmbJDjfSUrmO658DBUcs DsnPkZFTUFMRTwvdGQ+PH WmMVE9gGhoQAshSDZuhM7 rBTQoK1k3HlEl SoN7UQagK4HnZWButrxiN i31uB6fWqAiXwF4IYbnX6 ZfsbQ1YGSxxCYnFSioAYO 4E81pd8R2APKn DFRmVLZ1cCJ6cL9oqMusm jogbGVmdDsgdmVydGljYW qcRYxbQ356DIRuiDxbTcW fYLHiFJ1ppKbe dGQ+BK87dv05I6PlSoaxV cm5WVPjRAP5oQF0yU6dRL CbOExvx3E7oSC2Y7ExphM tyw8fb8nqUTAw VVdtP43szCNjo3P5BNDib RW7WRRuqZldPcYzjC14Hq c+GWCheMhvb7FzXjmub7r ix2atyRd8VnSt YIYjftWkzAqvLPN4t4MyG x28S15xXHarGRMmDNLwQZ SyIUYioQruig8bkN5nUw2 +CCDdmQB9oTG9 mM6kCmYcYsY5IObxG591O xEkzQDiMumgw5kyu6hfjN n1YmLiZKOoleIxaWivVYX 7s1CqUy59H6Fq pJgqf8EqLhf2dw42qVMor 4T4kGW7D7WvWQSmguixpO TupGwzNY1hUSKinejhUUS erN6bLBEaO2z1 DrEsXxW6WNcqR4WcvnL6U NTfkVEwQXFlkIOHpN0mfs hzu2jbluqvGqWnJUFvQTy 9TYs4KNCxuDem RdCzTRD7ZyE1VZW1mGOqs G0evOnvtvuywZ5wJiq+UG g6d6kbbQQrFP3aaAZ6CC7 6UM97mSJvi5L9 hWP1J8EyVXPyfbsgrzqar TJ8QNLfHCYyaO10Jv8ljV ipCg9yJKSfZWV0LKAvxMV wJ0VsjS0qTjQg BBYqUFSrJ2TdpZYoQLzgS 270XQtaQoW1SHCcseHyX5 AnXLCqyJscSnT1l3F3Oy2 RTP63US67NR78 aLUur9E9vJH5J8OvGVDvn eireyoodCP4HOLoRCUucW 48Fn6leKicEh1sEDOnNOR 3VEWalFYvJ8Zh zU3bVzZiGLYrSNRqM3Fyy UNiCRjnH841IDbzWbL8RA VekfVqV2AcXOVzuLtaOjT 9r0G0Tu4JOv24 QD19WM37yIGef6D1qMT6A 7HrTWFvpekxyvhcaFT1BQ WgSZJteV94Ir2ytMltAx5 lHMIpALN1KIQd dEGsH2CdvB7iSuPiZCNkO UPiJ8VxmRVtPYkvX683UF xdZbY0FHXpocMkR9XrJDM qnZebWwG3a1F5 Zz5KMCopmkk0H5LeOpyxx HI+LJ36ANCdCM47oLYekL Rot6adyAw5IqHxYSQnLDX 5mPbrBCrnn2Gc ZXI (more content not included)... Normal [facility] BOX TESTon 08-18-2024 BOX TEST SENT OUT [facility] BOX1 [facility] BOX2 08/18/24 [facility] 08-13-2024 C Urine Urine Culture ordere d as a result of parameters set on specific urine dip and urine microsopic results. Mixed skin, or urogenital jonny. Clinically insignificant Normal [facility] Comment on above: Performed By: #### 1 [id number], [id number], [id number] #### [facility] (DEFAULT) [address] [place] [address] .Auto Diff 1on 08-11-2024 Auto Sabine % 7 % Normal 1-12 [facility] Comment on above: Performed By: #### 7 213510, 3115963, 62418987, [id number] ####[facility] (DEFAULT)[address] [place] [address] Baso Abs# 0.1 x10 Normal 0.0-0.2 [facility] Comment on above: Performed By: #### 7 467325, 1475131, 03852053, [id number] ####[facility] (DEFAULT)[address] [place] [address] Basophils/100 WBC (Bld) 0.7 % Normal 0.2-2.0 [facility] Comment on above: Performed By: #### 7 803457, 5532893, 79489627, [id number] ####[facility] (DEFAULT)[address] [place] [address] Eos Abs# 0.0 x10 Normal 0.0-0.4 [facility] Comment on above: Performed By: #### 7 339723, 1570437, 62924411, [id number] ####[facility] (DEFAULT)[address] [place] [address] 90070 Eosinophils/100 WBC (Bld) 0.4 % Low 0.9-4.0 [facility] Comment on above: Performed By: #### 7 829424, 4527065, 15460556, [id number] ####[facility] (DEFAULT)[address] [place] [address] Lymph Abs# 2.5 x10 Normal 1.3-2.9 [facility] Comment on above: Performed By: #### 7 624704, 1477037, 70388403, [id number] ####[facility] (DEFAULT)[address] [place] [address] Lymphocytes/100 WBC (Bld) 23 % Normal 14-48 [facility] Comment on above: Performed By: #### 7 280167, 7929073, 88698863, [id number] ####[facility] (DEFAULT)[address] [place] [address] Sabine Abs# 0.7 x10 Normal 0.0-0.8 [facility] Comment on above: Performed By: #### 7 943227, 4466511, 04234726, [id number] ####[facility] (DEFAULT)[address] [place] [address] 12749 Neut Abs# 7.3 x10 Normal 1.5-9.2 [facility] Comment on above: Performed By: #### 7 680796, 9885529, 11504436, [id number] ####[facility] (DEFAULT)[address] [place] [address] 37777 Neutrophils/100 WBC (Bld) 69 % Normal 44-88 [facility] Comment on above: Performed By: #### 7 182916, 0013251, 98482045, [id number] ####[facility] (DEFAULT)[address] [place] [address] CBC w/ Auto Diffon 5 Erythrocyte distribution width (RBC) [Ratio] 14.0 % Normal 11.5-15.0 [facility] Comment on above: Performed By: #### 7 802135, 1331461, 07796485, [id number] ####[facility] (DEFAULT)[address] [place] [address] Hematocrit (Bld) [Volume fraction] 40.0 % Normal 33.7-40.4 [facility] Comment on above: Performed By: #### 7 972161, 9556771, 01117621, [id number] ####[facility] (DEFAULT)[address] [place] [address] 94399 Hemoglobin (Bld) [Mass/Vol] 13.4 g/dL Normal 11.3-15.9 [facility] Comment on above: Performed By: #### 7 415104, 3339919, 40679452, [id number] ####[facility] (DEFAULT)[address] [place] [address] Man Diff? Auto Invalid Interpretation Code [facility] Comment on above: Performed By: #### 7 059780, 7232199, 51160105, [id number] ####[facility] (DEFAULT)[address] [place] [address] 79872 MCH (RBC) [Entitic mass] 27 pg Normal 24-34 [facility] Comment on above: Performed By: #### 7 251437, 4483986, 08829460, [id number] ####[facility] (DEFAULT)[address] [place] [address] 73824 MCHC (RBC) [Mass/Vol] 34 g/dL Normal 26-37 [facility] Comment on above: Performed By: #### 7 987463, 5332270, 33084482, [id number] ####[facility] (DEFAULT)[address] [place] [address] 53655 MCV (RBC) [Entitic vol] 82 fL Normal 81-100 [facility] Comment on above: Performed By: #### 7 696097, 3113140, 99104227, [id number] ####[facility] (DEFAULT)[address] [place] [address] 03234 Platelet 378 x10 Normal 138-427 [facility] Comment on above: Performed By: #### 7 862978, 5684372, 97268341, [id number] ####[facility] (DEFAULT)[address] [place] [address] Platelet mean volume (Bld) [Entitic vol] 8.6 fL Normal 6.3-10.2 [facility] Comment on above: Performed By: #### 7 139480, 5317541, 44552497, [id number] ####[facility] (DEFAULT)[address] [place] [address] RBC 4.88 x10 Normal 3.70-5.30 [facility] Comment on above: Performed By: #### 7 942746, 7871261, 95358955, [id number] ####[facility] (DEFAULT)[address] [place] [address] WBC 10.7 x10 High 3.5-10.5 [facility] Comment on above: Performed By: #### 7 474287, 1778041, 73420951, [id number] ####[facility] (DEFAULT)[address] [place] [address] 69451 CMP Standardon 08-11-2024 eGFR Non AA >60 Invalid Interpretation Code [facility] Comment on above: Performed By: #### 7 067851, 7834806, 18199323, [id number] ####[facility] (DEFAULT)[address] [place] [address] 92644 eGFR AA >60 Invalid Interpretation Code [facility] Comment on above: Performed By: #### 7 439162, 5362489, 12377293, [id number] ####[facility] (DEFAULT)[address] [place] [address] 86558 Albumin [Mass/Vol] 3.9 g/dL Normal 3.5-5.0 [facility] Comment on above: Performed By: #### 7 254018, 9776585, 54075685, [id number] ####[facility] (DEFAULT)[address] [place] [address] Albumin/Globulin [Mass ratio] 1.0 {ratio} Low 1.4-2.6 [facility] Comment on above: Performed By: #### 7 352380, 7146179, 27399905, 4741253787 ####[facility] (DEFAULT)[address] [place] [address] Alk Phos 77 IU/L Normal 32-91 [facility] Comment on above: Performed By: #### 7 149747, 2465375, 00452480, [id number] ####[facility] (DEFAULT)[address] [place] [address] 40841 ALT [Catalytic activity/Vol] 25.0 U/L Normal 14.0-54.0 [facility] Comment on above: Performed By: #### 7 638293, 4777665, 16720215, [id number] ####[facility] (DEFAULT)[address] [place] [address] Anion gap [Moles/Vol] 13.8 mmol/L Normal 5.0-19.0 [facility] Comment on above: Performed By: #### 7 928502, 4331008, 46307866, [id number] ####[facility] (DEFAULT)[address] [place] [address] AST [Catalytic activity/Vol] 21 U/L Normal 15-41 [facility] Comment on above: Performed By: #### 7 915610, 4301659, 01394433, [id number] ####[facility] (DEFAULT)[address] [place] [address] 38252 Bili Total 0.7 mg/dL Normal 0.3-1.2 [facility] Comment on above: Performed By: #### 7 459374, 3166536, 67290737, [id number] ####[facility] (DEFAULT)[address] [place] [address] 98587 Calcium [Mass/Vol] 9.2 mg/dL Normal 8.9-10.3 [facility] Comment on above: Performed By: #### 7 365478, 1601848, 11370698, [id number] ####[facility] (DEFAULT)[address] [place] [address] Chloride [Moles/Vol] 105 mmol/L Normal 101-111 [facility] Comment on above: Performed By: #### 7 810047, 9713309, 11840533, [id number] ####[facility] (DEFAULT)[address] [place] [address] 02700 CO2 [Moles/Vol] 21 mmol/L Normal 21-32 [facility] Comment on above: Performed By: #### 7 943117, 1358029, 22724318, [id number] ####[facility] (DEFAULT)[address] [place] [address] 33519 Creatinine [Mass/Vol] 0.55 mg/dL Low 0.60-1.30 [facility] Comment on above: Performed By: #### 7 367734, 6137270, 37799633, 9616447041 ####[facility] (DEFAULT)[address] [place] [address] 08485 Globulin (S) [Mass/Vol] 3.7 g/dL Normal 1.5-4.3 [facility] Comment on above: Performed By: #### 7 034342, 6647470, 47069977, [id number] ####[facility] (DEFAULT)[address] [place] [address] 55240 Glucose [Mass/Vol] 92.0 mg/dL Normal 74.0-118.0 [facility] Comment on above: Performed By: #### 7 904050, 2125260, 39188643, [id number] ####[facility] (DEFAULT)[address] [place] [address] 85867 Osmolality 270 mOsm/L Invalid Interpretation Code [facility] Comment on above: Performed By: #### 7 568888, 3307794, 98617209, [id number] ####[facility] (DEFAULT)[address] [place] [address] 59763 Potassium [Moles/Vol] 3.8 mmol/L Normal 3.6-5.1 [facility] Comment on above: Performed By: #### 7 401834, 5489090, 08078453, [id number] ####[facility] (DEFAULT)[address] [place] [address] 69028 Protein [Mass/Vol] 7.6 g/dL Normal 6.5-8.1 [facility] Comment on above: Performed By: #### 7 943095, 3304172, 66194018, [id number] ####[facility] (DEFAULT)[address] [place] [address] 02661 Sodium [Moles/Vol] 136.0 mmol/L Normal 136.0-144.0 [facility] Comment on above: Performed By: #### 7 679970, 3226141, 27121660, [id number] ####[facility] (DEFAULT)[address] [place] [address] 82002 Urea nitrogen [Mass/Vol] 8 mg/dL Normal 8-26 [facility] Comment on above: Performed By: #### 7 474357, 8020811, 18355719, [id number] ####[facility] (DEFAULT)[address] [place] [address] Urea nitrogen/Creatinine [Mass ratio] 14.5 mg/mg Normal 4.6-16.2 [facility] Comment on above: Performed By: #### 7 325181, 4691435, 42654375, [id number] ####[facility] (DEFAULT)[address] [place] [address] 32218 UA Kmhgo3ox 08-11-2024 UA Bacteria 1+ [facility] Comment on above: Order Comment: Urina lysis Microscopic order added on by [employer] system. Performed By: #### 1 [id number], 67352663, 0835976 #### [facility] (DEFAULT) [address] [place] [address] 84408 UA RBC 0-2 Normal [facility] Comment on above: Order Comment: Urina lysis Microscopic order added on by [employer] system. Performed By: #### 1 [id number], 53379375, 4259293 #### [facility] (DEFAULT) [address] [place] [address] 97675 UA Squam Epi None Seen Normal [facility] Comment on above: Order Comment: Urina lysis Microscopic order added on by [employer] system. Performed By: #### 1 [id number], 46035175, 1307239 #### [facility] (DEFAULT) [address] [place] [address] UA Urothelial Cells Moderate Abnormal None Seen [facility] Comment on above: Order Comment: Urina lysis Microscopic order added on by [employer] system. Performed By: #### 1 [id number], 11274491, 5366343 #### [facility] (DEFAULT) [address] [place] [address] UA WBC 0-2 Normal [facility] Comment on above: Order Comment: Urina lysis Microscopic order added on by [employer] system. Performed By: #### 1 [id number], 86961239, 6988710 #### [facility] (DEFAULT) [address] [place] [address] UA w Culture if Ind Standard on 08-11-2024 Breakpoint UA Normal [facility] Comment on above: Performed By: #### 1 [id number], 15737357, 1889583 #### [facility] (DEFAULT) [address] [place] [address] Color (U) Dark Yellow Normal [facility] Comment on above: Performed By: #### 1 [id number], 97440798, 5831665 #### [facility] (DEFAULT) [address] [place] [address] Culture? Indicated Invalid Interpretation Code [facility] Comment on above: Result Comment: Resu lt created by rule GL_MAGR_ADD_UA_CULT Result created by rule GL_MAGR_ADD_UA_CULT Result created by rule GL_MAGR_ADD_UA_CULT Performed By: #### 1 [id number], 77291591, 7994721 #### [facility] (DEFAULT) [address] [place] [address] 14664 Glucose (U) [Mass/Vol] Negative Normal [facility] Comment on above: Performed By: #### 1 376327057, 11526194, 3224919 #### [facility] (DEFAULT) [address] [place] [address] 63584 Ketones Ql (U) >=80 Normal [facility] Comment on above: Performed By: #### 1 [id number], 15024313, 6469158 #### [facility] (DEFAULT) [address] [place] [address] 50805 Micro? Indicated Invalid Interpretation Code [facility] Comment on above: Result Comment: Resu lt created by rule GL_MAGR_ADD_UA_MICRO Performed By: #### 1 [id number], 63278365, 9565377 #### [facility] (DEFAULT) [address] [place] [address] 17338 UA Bilirubin SMALL Abnormal [facility] Comment on above: Performed By: #### 1 732443995, 43844859, 9254615 #### [facility] (DEFAULT) [address] [place] [address] 98319 UA Blood Negative Normal NEGATIVE [facility] Comment on above: Performed By: #### 1 255209351, 96396171, 2052096 #### [facility] (DEFAULT) [address] [place] [address] 75688 UA Clarity CLEAR Normal CLEAR [facility] Comment on above: Performed By: #### 1 [id number], 78838671, 1566859 #### [facility] (DEFAULT) [address] [place] [address] 86838 UA Leuk Est TRACE Abnormal NEGATIVE [facility] Comment on above: Performed By: #### 1 [id number], 05581745, 5368032 #### [facility] (DEFAULT) [address] [place] [address] 71553 UA Nitrite Negative Normal NEGATIVE [facility] Comment on above: Performed By: #### 1 576363303, 76554591, 2215743 #### [facility] (DEFAULT) [address] [place] [address] 24285 UA pH 7.0 Normal 5-8 [facility] Comment on above: Performed By: #### 1 089721811, 23763595, 3388024 #### [facility] (DEFAULT) [address] [place] [address] 97871 UA Protein 30 Abnormal NEGATIVE [facility] Comment on above: Performed By: #### 1 053971834, 53240709, 3822809 #### [facility] (DEFAULT) [address] [place] [address] 10296 UA Spec Grav 1.015 Normal 1.001-1.035 [facility] Comment on above: Performed By: #### 1 697221168, 08951368, 9929802 #### [facility] (DEFAULT) [address] [place] [address] 25448 UA Urobilinogen 4.0 mg/dL Abnormal 0.2-1.0 [facility] Comment on above: Performed By: #### 1 [id number], 22427565, 6141250 #### [facility] (DEFAULT) [address] [place] [address] 27115 Urine Source Clean Catch Normal [facility] Comment on above: Performed By: #### 1 [id number], 07263613, 9388385 #### [facility] (DEFAULT) [address] [place] [address] 60743 hCG Quantitativeon hCG Quantitative 878543.0 mIU/mL High 0.0-0.6 [facility] Comment on above: Result Comment: Resu lt Confirmed by Dilution Post-Menopausal Reference Range is: 0.1-11.6 mIU/mL Performed By: #### 7 007302, 8219522, 58868158, [id number] ####[facility] (DEFAULT)[address] [place] [address] HCG ( test) Ql (U)o n 08-06-2024 Interpretation and review of laboratory results Abnormal [facility] Preg Test, Ur Positive Negative [facility] US OB TRANSVAGINALon 025 US OB TRANSVAGINAL [...] report is generated using voice recognition reporting ([employer]). On occasion [employer] erroneously drops words from the report or [...] UA Positive Negative - 4(70) +++ mg/dL [facility] Comment on above: small Blood, UA Positive Negative - 50 Villa/mcL [facility] Comment on above: Trace-intact Clarity, UA Clear [facility] Color, UA Yellow [facility] Glucose, UA Negative Negative - 2000(110) ++++ mg/dL [facility] Interpretation and review of laboratory results Abnormal [facility] Ketones, UA Positive Negative - 160(16) ++++ mg/dL [facility] Comment on above: 80mg/dL Leukocytes, UA Trace Negative - 500+++ Pierre/mcL [facility] Nitrite, UA Negative Negative - Positive [facility] pH, UA 6.5 5 - 9 [facility] Protein, UA Positive Negative - 2000(20) ++++ mg/dL [facility] Comment on above: 100mg/dL Spec Grav, UA 1.025 1 - 1.03 [facility] Urobilinogen, UA 1.0 0.2 - 12 mg/dL [facility] CBC WITH AUTO DIFFERENTIALon 08-03-2024 BASOPHILS ABSOLUTE COUNT (10*3/UL) BY AUTOMATED COUNT 0.1 10*3/uL Normal [facility] Comment on above: Performed By: #### 2 106-3 #### [facility] ([id number]) [address] [place] [address] 75765 BASOPHILS RELATIVE PERCENT BY AUTOMATED COUNT 0.7 % Normal [facility] Comment on above: Performed By: #### 2 106-3 #### [facility] ([id number]) [address] [place] [address] 03314 CELLAVISION DIFFERENTIAL TYPE AUTOMATED DIFFERENTIAL Normal [facility] Comment on above: Performed By: #### 2 106-3 #### [facility] ([id number]) [address] [place] [address] 15387 Eosinophils (Bld) [#/Vol] 0.0 10*3/uL Normal [facility] Comment on above: Performed By: #### 2 106-3 #### [facility] ([id number]) [address] [place] [address] 19231 EOSINOPHILS RELATIVE PERCENT BY AUTOMATED COUNT 0.2 % Normal [facility] Comment on above: Performed By: #### 2 106-3 #### [facility] ([id number]) [address] [place] [address] 51292 Erythrocyte distribution width (RBC) [Ratio] 14.2 % Normal 11.5-15 [facility] Comment on above: Performed By: #### 2 106-3 #### [facility] ([id number]) [address] [place] [address] 52135 Hematocrit (Bld) [Volume fraction] 40.0 % Normal 35-47 [facility] Comment on above: Performed By: #### 2 106-3 #### [facility] ([id number]) [address] [place] [address] 71896 Hemoglobin (Bld) [Mass/Vol] 13.4 g/dL Normal 11.7-15.5 [facility] Comment on above: Performed By: #### 2 106-3 #### [facility] ([id number]) [address] [place] [address] 74678 LYMPHOCYTES ABSOLUTE COUNT (10*3/UL) BY AUTOMATED COUNT 2.8 10*3/uL Normal [facility] Comment on above: Performed By: #### 2 106-3 #### [facility] ([id number]) [address] [place] [address] 23838 LYMPHOCYTES RELATIVE PERCENT BY AUTOMATED COUNT 23.8 % Normal [facility] Comment on above: Performed By: #### 2 106-3 #### [facility] ([id number]) [address] [place] [address] 06776 MCH (RBC) [Entitic mass] 27.5 pg Normal 27-34 [facility] Comment on above: Performed By: #### 2 106-3 #### [facility] ([id number]) [address] [place] [address] 09243 MCHC (RBC) [Mass/Vol] 33.5 g/dL Normal 32-36 [facility] Comment on above: Performed By: #### 2 106-3 #### [facility] ([id number]) [address] [place] [address] 49958 MCV (RBC) [Entitic vol] 82 fL Normal 80-100 [facility] Comment on above: Performed By: #### 2 106-3 #### [facility] ([id number]) [address] [place] [address] 14310 MONOCYTES ABSOLUTE COUNT (10*3/UL) BY AUTOMATED COUNT 0.9 10*3/uL Normal [facility] Comment on above: Performed By: #### 2 106-3 #### [facility] ([id number]) [address] [place] [address] 22453 MONOCYTES RELATIVE PERCENT BY AUTOMATED COUNT 7.7 % Normal [facility] Comment on above: Performed By: #### 2 106-3 #### [facility] ([id number]) [address] [place] [address] 66571 NEUTROPHILS ABSOLUTE COUNT BY AUTOMATED COUNT 8.0 10*3/uL Normal [facility] Comment on above: Performed By: #### 2 106-3 #### [facility] ([id number]) [address] [place] [address] 89642 NEUTROPHILS RELATIVE PERCENT BY AUTOMATED COUNT 67.6 % Normal [facility] Comment on above: Performed By: #### 2 106-3 #### [facility] ([id number]) [address] [place] [address] 65062 Platelet mean volume (Bld) [Entitic vol] 9.1 fL Normal 7-12 [facility] Comment on above: Performed By: #### 2 106-3 #### [facility] ([id number]) [address] [place] [address] 19566 Platelets (Bld) [#/Vol] 400 10*3/uL Normal 150-450 [facility] Comment on above: Performed By: #### 2 106-3 #### [facility] ([id number]) [address] [place] [address] 88193 RBC COUNT 4.88 X10E12/L Normal 3.8-5.2 [facility] Comment on above: Performed By: #### 2 106-3 #### [facility] ([id number]) [address] [place] [address] 64954 WBC (Bld) [#/Vol] 11.8 10*3/uL High 4-11 [facility] Comment on above: Performed By: #### 2 106-3 #### [facility] ([id number]) [address] [place] [address] 47289 COMPREHENSIVE METABOLIC PANE Alex 08-03-2024 Albumin [Mass/Vol] 4.2 g/dL Normal 3.2-5.3 [facility] Comment on above: Performed By: #### 2 106-3 #### [facility] ([id number]) [address] [place] [address] 55163 ALP [Catalytic activity/Vol] 90 U/L Normal 39-130 [facility] Comment on above: Performed By: #### 2 106-3 #### [facility] ([id number]) [address] [place] [address] 30983 ALT [Catalytic activity/Vol] 16 U/L Normal <=31 [facility] Comment on above: Result Comment: R-Sp ecimen hemolyzed, results increased Performed By: #### 2 106-3 #### [facility] ([id number]) [address] [place] [address] 05725 Anion gap [Moles/Vol] 9 mmol/L Normal 5-15 [facility] Comment on above: Performed By: #### 2 106-3 #### [facility] ([id number]) [address] [place] [address] 51826 AST [Catalytic activity/Vol] 27 U/L Normal <=41 [facility] Comment on above: Result Comment: R-Sp ecimen hemolyzed, results increased Performed By: #### 2 106-3 #### [facility] ([id number]) [address] [place] [address] Bilirubin [Mass/Vol] 1.2 mg/dL Normal 0.3-1.2 [facility] Comment on above: Result Comment: R-Re sults questionable due to hemolysis Performed By: #### 2 106-3 #### [facility] ([id number]) [address] [place] [address] 18181 Calcium [Mass/Vol] 9.2 mg/dL Normal 8.5-10.5 [facility] Comment on above: Performed By: #### 2 106-3 #### [facility] ([id number]) [address] [place] [address] 29451 Chloride [Moles/Vol] 103 mmol/L Normal 98-109 [facility] Comment on above: Performed By: #### 2 106-3 #### [facility] ([id number]) [address] [place] [address] 37090 CO2 [Moles/Vol] 22 mmol/L Normal 22-32 [facility] Comment on above: Performed By: #### 2 106-3 #### [facility] ([id number]) [address] [place] [address] 23856 Creatinine [Mass/Vol] 0.70 mg/dL Normal 0.40-1.00 [facility] Comment on above: Result Comment: METH OD TRACEABLE TO IDMS STANDARD Performed By: #### 2 106-3 #### [facility] ([id number]) [address] [place] [address] 30905 EGFR (CKD-EPI) NON-RACE DEPENDENT >^90 Normal >=60 [facility] Comment on above: Result Comment: Repo rted eGFR is based on the CKD-EPI 2020 equation that does not use a race coefficient. Performed By: #### 2 106-3 #### [facility] ([id number]) [address] [place] [address] 54311 Glucose [Mass/Vol] 86 mg/dL Normal 65-99 [facility] Comment on above: Performed By: #### 2 106-3 #### [facility] ([id number]) [address] [place] [address] 15040 Potassium [Moles/Vol] 4.2 mmol/L Normal 3.5-5.0 [facility] Comment on above: Result Comment: R-Sp ecimen hemolyzed, results increased Performed By: #### 2 106-3 #### [facility] ([id number]) [address] [place] [address] 26848 Protein [Mass/Vol] 8.1 g/dL High 6.0-8.0 [facility] Comment on above: Performed By: #### 2 106-3 #### [facility] ([id number]) [address] [place] [address] 68862 Sodium [Moles/Vol] 134 mmol/L Normal 134-146 [facility] Comment on above: Performed By: #### 2 106-3 #### [facility] ([id number]) [address] [place] [address] 01785 Urea nitrogen [Mass/Vol] 9 mg/dL Normal 5-23 [facility] Comment on above: Performed By: #### 2 106-3 #### [facility] ([id number]) [address] [place] [address] 35389 ER EXTRA URINEon 08-03-2024 ER EXTRA URINE ERU ER EXTRA URINE Cancelled Normal [facility] Comment on above: Order Comment: A ext ra urine specimen no testing is needed MAGNESIUMon 08-03-2024 Magnesium [Mass/Vol] 2.1 mg/dL Normal 1.8-2.6 [facility] Comment on above: Result Comment: R-Sp ecimen hemolyzed, results increased Performed By: #### 2 106-3 #### [facility] ([id number]) [address] [place] [address] 16359 POCT NURSING URINE MACROSCOP IC UAon 08-03-2024 BILIRUBIN NEHA Small Abnormal Negative [facility] Comment on above: Performed By: #### 2 106-3 #### [facility] ([id number]) [address] [place] [address] 56148 BLOOD/HGB NEHA Small Abnormal Negative [facility] Comment on above: Performed By: #### 2 106-3 #### [facility] ([id number]) [address] [place] [address] 78980 GLUCOSE NEHA Negative Normal Negative [facility] Comment on above: Performed By: #### 2 106-3 #### [facility] ([id number]) [address] [place] [address] 75418 KETONES NEHA 15 mg/dL Abnormal Negative [facility] Comment on above: Performed By: #### 2 106-3 #### [facility] ([id number]) [address] [place] [address] 97546 LEUKOCYTE ESTERASE NEHA Negative Normal Negative [facility] Comment on above: Performed By: #### 2 106-3 #### [facility] ([id number]) [address] [place] [address] 12103 NITRITE NEHA Negative Normal Negative [facility] Comment on above: Performed By: #### 2 106-3 #### [facility] ([id number]) [address] [place] [address] 00161 PH NEHA 7.0 Normal 5.0, 6.0, 6.5, 7.0, 7.5, 8.0, 8.5, 5.5 [facility] Comment on above: Performed By: #### 2 106-3 #### [facility] ([id number]) [address] [place] [address] 32454 PROTEIN NEHA 100 mg/dL Abnormal Negative [facility] Comment on above: Performed By: #### 2 106-3 #### [facility] ([id number]) [address] [place] [address] 70088 SPECIFIC GRAVITY NEHA 1.025 Abnormal (none) [facility] Comment on above: Performed By: #### 2 106-3 #### [facility] ([id number]) [address] [place] [address] 60873 UROBILINOGEN NEHA 1.0 E.U./dL Normal 0.2 E.U./dL , 1.0 E.U./dL [facility] Comment on above: Performed By: #### 2 106-3 #### [facility] ([id number]) [address] [place] [address] 98392 POCT , URINE (NUCG) on 08-03-2024 Beta HCG ( test) Ql (U) Positive Abnormal Negative [facility] Comment on above: Performed By: #### 2 106-3 #### [facility] ([id number]) [address] [place] [address] 55679 US PREG LESS THAN 14 WKS SIN GLEon 08-03-2024 US PREG LESS THAN 14 WKS SINGLE US PREG LESS THAN 14 WKS SINGLE US PREG LESS THAN 14 WKS SINGLE CLINICAL INDICATION: vomiting FINDINGS: limited transabdominal ultrasound of the pelvis. UTERUS AND GESTATIONAL SAC: Intrauterine gestation: Single. Gestational sac: Intrauterine. Yolk sac: 0.3 cm [place]-rump length (CRL): 1.6 cm heart motion: 174 [...] Brett Gutierrez on 08/03/2024 12:52 PM Normal [facility] COMPREHENSIVE METABOLIC PANE Alex 07-20-2024 Albumin [Mass/Vol] 4.2 g/dL Normal 3.2-5.3 [facility] Comment on above: Performed By: #### N UM #### [facility] ([id number]) [address] [place] [address] 46525 ALP [Catalytic activity/Vol] 95 U/L Normal 39-130 [facility] Comment on above: Performed By: #### N UM #### [facility] ([id number]) [address] [place] [address] 09890 ALT [Catalytic activity/Vol] 19 U/L Normal 0-31 [facility] Comment on above: Performed By: #### N UM #### [facility] ([id number]) [address] [place] [address] 57445 Anion gap [Moles/Vol] 11 mmol/L Normal 5-15 [facility] Comment on above: Performed By: #### N UM #### [facility] ([id number]) [address] [place] [address] 20685 AST [Catalytic activity/Vol] 19 U/L Normal 0-41 [facility] Comment on above: Performed By: #### N UM #### [facility] ([id number]) [address] [place] [address] 60358 Bilirubin [Mass/Vol] 0.5 mg/dL Normal 0.3-1.2 [facility] Comment on above: Performed By: #### N UM #### [facility] ([id number]) [address] [place] [address] 11224 Calcium [Mass/Vol] 9.2 mg/dL Normal 8.5-10.5 [facility] Comment on above: Performed By: #### N UM #### [facility] ([id number]) [address] [place] [address] 31946 Chloride [Moles/Vol] 104 mmol/L Normal 98-109 [facility] Comment on above: Performed By: #### N UM #### [facility] ([id number]) [address] [place] [address] 61567 CO2 [Moles/Vol] 20 mmol/L Low 22-32 [facility] Comment on above: Performed By: #### N UM #### [facility] ([id number]) [address] [place] [address] 71371 Creatinine [Mass/Vol] 0.68 mg/dL Normal 0.40-1.00 [facility] Comment on above: Result Comment: METH OD TRACEABLE TO IDMS STANDARD Performed By: #### N UM #### [facility] ([id number]) [address] [place] [address] [place] [address] eGFR (CKD-EPI) NON-RACE DEPENDENT >90 Normal >59 [facility] Comment on above: Result Comment: Reported eGFR is based on the CKD-EPI 2021 equation that does not use a race coefficient. Performed By: #### N UM #### [facility] ([id number]) [address] [place] [address] 87522 Glucose [Mass/Vol] 81 mg/dL Normal 65-99 [facility] Comment on above: Performed By: #### N UM #### [facility] ([id number]) [address] [place] [address] 15095 Potassium [Moles/Vol] 4.7 mmol/L Normal 3.5-5.0 [facility] Comment on above: Performed By: #### N UM #### [facility] ([id number]) [address] [place] [address] [place] [address] Protein [Mass/Vol] 7.9 g/dL Normal 6.0-8.0 [facility] Comment on above: Performed By: #### N UM #### [facility] ([id number]) [address] [place] [address] 55901 Sodium [Moles/Vol] 135 mmol/L Normal 134-146 [facility] Comment on above: Performed By: #### N UM #### [facility] ([id number]) [address] [place] [address] 91611 Urea nitrogen [Mass/Vol] 10 mg/dL Normal 5-23 [facility] Comment on above: Performed By: #### N UM #### [facility] ([id number]) [address] [place] [address] 92276 HCG ( test) Ql (U)o n 07-20-2024 Beta HCG ( test) Ql (U) Positive Abnormal NEG [facility] Comment on above: Performed By: #### 2 106-3 #### [facility] ([id number]) [address] [place] [address] 52129 HCG.beta subunit IA 3rd IS Q non 07-20-2024 [place] [address] m[IU]/mL Normal P [facility] Comment on above: Result Comment: NEW [...] neoplasms. Performed By: #### N UM #### [facility] ([id number]) [address] [place] [address] 56595 LIPASEon 07-20-2024 Lipase [Catalytic activity/Vol] 31 U/L Normal 17-40 [facility] Comment on above: Performed By: #### N UM #### [facility] ([id number]) [address] [place] [address] 95921 URINE CULTUREon 07-20-2024 Bacteria identified Cx Nom (U) CULTURE RESULTS >100,000 ORGANISMS/ML NORMAL UROGENITAL JONNY Normal [facility] Comment on above: Performed By: #### 2 106-3 #### [facility] ([id number]) [address] [place] [address] 91547 URN MACROSCOPIC NURon 2024 BILIRUBIN NEHA Negative Normal NEG [facility] Comment on above: Performed By: #### N UM #### [facility] ([id number]) [address] [place] [address] 96050 BLOOD/HGB NEHA Negative Normal NEG [facility] Comment on above: Performed By: #### N UM #### [facility] ([id number]) [address] [place] [address] 68426 GLUCOSE NEHA Negative Normal NEG [facility] Comment on above: Performed By: #### N UM #### [facility] ([id number]) [address] [place] [address] 01981 KETONES NEHA 15 mg/dL Abnormal NEG [facility] Comment on above: Performed By: #### N UM #### [facility] ([id number]) [address] [place] [address] 41150 LEUKOCYTE ESTERASE NEHA Negative Normal NEG [facility] Comment on above: Performed By: #### N UM #### [facility] ([id number]) [address] [place] [address] 65583 NITRITE NEHA Negative Normal NEG [facility] Comment on above: Performed By: #### N UM #### [facility] ([id number]) [address] [place] [address] 69232 PH NEHA 7.0 Normal 5.0-8.5 [facility] Comment on above: Performed By: #### N UM #### [facility] ([id number]) [address] [place] [address] 89151 PROTEIN NEHA Negative Normal NEG [facility] Comment on above: Performed By: #### N UM #### [facility] ([id number]) [address] [place] [address] 29123 SPECIFIC GRAVITY NEHA 1.020 Normal 1.003-1.035 [facility] Comment on above: Performed By: #### N UM #### [facility] ([id number]) [address] [place] [address] 71201 UROBILINOGEN NEHA 0.2 eu/dL Normal <1.1 [facility] Comment on above: Performed By: #### N UM #### [facility] ([id number]) [address] [place] [address] 41102 TBH PREG QUANT HCGon 07-03-2 025 HCG QUANTITATIVE 59 mIU/mL [facility] Comment on above: 5-50 0.2-1 WEEK 50-500 1-2 WEEKS 100-5,000 2-3 WEEKS 500-10,000 3-4 WEEKS 1,000-50,000 4-5 WEEKS 10,000-100,000 5-6 WEEKS 15,000-200,000 6-8 WEEKS 10,000-100,000 2-3 MONTHS [facility] TBH PREG QUANT HCGon 07-01- 025 HCG QUANTITATIVE 22 mIU/mL [facility] Comment on above: 5-50 0.2-1 WEEK 50-500 1-2 WEEKS 100-5,000 2-3 WEEKS 500-10,000 3-4 WEEKS 1,000-50,000 4-5 WEEKS 10,000-100,000 5-6 WEEKS 15,000-200,000 6-8 WEEKS 10,000-100,000 2-3 MONTHS [facility] Coding Summaryon 06-11-2024 Coding Summary HTMLBase 64 UifbatnoUYz3oYb+PGhlY WQ+KW2HPVCyU65leCNyfM 7vE4SYJZcOVlatSNXEDEt HTmDsmwNmWQ4slLGaTUUv IC8+JB2dGYQzFtjzjFJds 5X9dMB7C30rsk7bZFsmuZ Y5GCImRcIwmpjwx9zbeCb 6IDcuNmluOyBt JHIxtU00ZRV1qM34Id38q QDrhTKji1xaxBs3CzWaNB CsYJI3hKisSExez0AqJCN bC92viTXad3P9 DXAuuXjllKQqHlUmrRV1m K9aGCvjtizhm8volvtdUe f0pt87mVVra5E8pUO5F5C gukL8WVWpfQFu OndagAMZoN6eomkxm5hwb snjYqVkESHuAAm4MLy6GA QhtKubUlJpGR69SUG1JXY twgBdX4LeRQZv hXpqOoF5i0Q1Td4XX0RQM fkfA6USFWEQMBzudCC+PC 14fm49X2GnKrgrIhn2TNS aEZV1cXR7bP7l IQDzCKmnd0R7yCL3E5Mnm pPxle6gc7ipPXPoEHtbF1 3dmRPfq3N6YUGldBA0EXR lnPvaYqRnzM33 Oyc+XSKsnDlvu4ZuZxkut 2dnn2ysuGj3HblkFHRpkh QxaCpuQUI3l0DwFh5eUTM ksFF4lBV4yM2u ZpTaEuG2HGmvG296CtWpz XNuXonxA89pV5QfoVQ+PH ThUen5RSLfvChoOJ0yD9T hZGRpbmctbGVm uAiwBM1qNUKuyfidWNXjl X6nSMNdP3u0HdLrPsM0YZ yrO7IdPXMkupniCl94kY9 eUdKyLxC9BJob Y5QitiJ5AXXwpMBlRSzsQ BS9M44rc0A3YKIfTVKsNW V4qYN9zY4jkDfnjqwqxHA mdDsgdmVydGlj MYsmPNthC480DIYbbFgmC kNvZGluZyBEYXRlOiAgMD MvMDYvMjAyNTwvdGQ+PHR oLKE1yQvaHNIe pYQvSVugUn4htOrxfKjmI M5tCDBgjmniVNCqiR9jYO IonECjbVgeAL4oZPRwfzf bd418NlExPQW7 KBBuxMMmC0OpaV2jKoVdE NXjLDSoC2KpuIJpCGbqQ9 65CHssArN6HUAxenLiE7K sLWFsaWduOiB0 y5V4Br6Li5CkbcvnU7Rmq MAcRpMcPhtzUId1X0TsKf wvdHI+AW65GHZnXU81HVo 4KHY9zPzzMDtd QXYqR3OenZ1tVyVfKEXrN GRkOyc+PHRhYmxlIHdpZH RoPScxMDAlJyBzdHlsZT0 gZa3jMKTwODVg yEroyCScMjPzr6uhJADqK EfsWH7iaYuqB2WyxOY1AD Fld2n8Tr80H96jL3HnlVG +ZPPadTL4zVW1 rE8mEjUsZkG9MIyrQ810X dGrmVDmPgyvt8odf1zlhB w6CtT9FOLfwhPbpFxwWCS 5v4DrNv00X67t IHdpZHRoPSIxNSUiIHZhb Fwvls7rxQ3jDp1+PGNvbC M1gBX2qB2hGzNgOoL5QMc eK747MrGcaZQq Jnsam2qul2vkeQr8WrSkH MZpevAczCplDSS8y0GsNi 60P1XoqWans1OrKfv1aw2 7uEErd3C3xTK7 R0KaTLByyzjbgFToeRodW D7lSDMyzqbmEVYukW9gPA FbM7d1VlKdEcB3HLhvF0M jbzM6VZQgzAGp VRFacJYVsF2iywnvl8ziy dvuGqFpOCJtWXs6BLh3IC JmkTfvBgNhEGP8UmL8RHO 6yIQbkJ1yhKdd suwscY3hXdi+KHQ7eDTvf QOCTG0cDxdjxZP+PHRkIH B4hNyrHXmhOWJozS0oNGY pR2n1UlOrSxQ9 LOumY3UnbsS2QYOfsHAnM YQwdYVKoO5fkfplj6ozgr uvPyYzUFLaJEi1DRc5IYX saWduOiBsZWZ0 CzP1NZK1rLEilA2bbWxan leecR8lNjj+QmlydGggRG Q4SEh8K4KbBby3PZKpbCi jFC8tpANeYIhi Wf0ycCzecPgwSC9dMQBzz rjas050ZsUun7pyTCQutT DkBXviGGV6U83om8B9VYO fPNSwLQF0gHO2 cF7loAmsynqfqPAczUczi mWyqKwqMAfkEXpyJ342AT JthBlxPsTvIJz5O4PyJps 8KWOlkMzgLC0o jLQiGUvbQa1goSvlwXgjV C7wVDVxqzwmw356IdNvc9 ueBZPwyQAdBDtrQFJ2P19 fr3D6AMVjKCHy DEB0nGP8yH5rqJjoodgbh GVmdDsgdmVydGljYWwtYW ykJ252GTEscGlwUvZwuTx 3A5QoNrm3MOIk pAgjDT5ipHPbGZfrUl0hs LwchQawAV9vJAKjacqwk5 33FuYvs4cpHZXmfDCxCNu gFUG2L02hj9C6 HGKyATZeZOS3nMJ6nM5ce GlnbjogbGVmdDsgdmVydG zdPMvyVLnlD002UTYzoMh nPlBhdGllbnQg ASvjKGn8X2KfKuhjcTR+P C65YCDaUC13fWQvkKFbp2 fdwRs9MhVfCCOcTPX7hHj tIZhnp8MmEPVk X06ilBLek2D1VGSywJzuv HMbThBktTY6mM5fVPkbos xhh0rcpcwxQtvwh0wmow6 1bZ22K91cZIlh ZHRoPSIzMCUiIHZhbGlnb o9olW4zWg6+IIGxnBH2zH E1eN5hUCIoQrI8XAaeD36 9InRvcCIvPjxj z9nzp9eyuQu2LeM5INGnj sAklIooPHS8p2PiLi21J9 9sIHdpZHRoPSIyMCUiIHZ bjXtxeq4kgU5q Ii8+JRWonYX6rDZ8fY0fA mNmAiQ1CDgrK157ErFitH GcAhejJ90mS2JlcCD+PHR uYpm6KWKdpNqu VU4ybEHjVFymTl9mTLP4O dXlTpGmXApsA8EhKEObmi qvodujtNH7MGFfKGFnkU0 9Vx0foQumHAGl pKYDwW4afmuhw7gsxbhiJ jCkMUUmKGo7QJd8EFTrqR vmAbAlPSA1EaT9RMP8ePV cvZ9gyAqzrfzl bH9zL6SoXKVfwknoTs53j L5gTlDhKbT5LEcvRfg+R0 aYWwZRIMomX9aXXLYCUCs ULA4RPYiojTT+ EBOuWZN1oHvmKOshQLWvj X2fOPMzU4t3VeMkZwJ0HV riY8KeMHZthhhlLx32zX0 qMtQtQqY7GJdz Q8WygwF2YOYrhTUnYUggV OT3K71ge5E3ZAWcCZHoZA Z2zIZ9dX9kcCatycddwEM mdDsgdmVydGlj IBloLBhzH658TIVbmJbdW vQ8WjOwLnIdZAM4X9VuHz m5REYatUjiRX3gjGPbXZz mIm4jkFgiaXfc ZI2dTQGfqjxaVQTcfR4jW BEnfCDyjPujWR4zMAAnml xpt051QmXrKHY3NGBbsWA iW8JylS0cEtOp VTWlRVUjM0YqyXBfXTdtI 361LFnvIkL9IZPvwjEoD4 GaPJUjjGkuLzH5f0L3Xd0 yMiBZZWFyczwv dGQ+RWLoIAG6fVhnYEaaY ZFonO2gSALpU7q4IuQkRk S0RSihR8RvAQUxiwzkGg4 9rW5dGtQxIlJ9 FTvhI6EjweK6BPEmkDCqK HqkIPC2D73rp7I0PZSbUB XzPMG9uMV8aK8zjAusqll gbGVmdDsgdmVy fIonPHgpTZudK707JHAmj DsnPkZFTUFMRTwvdGQ+PH MkZVC2yFfuCKsuHHHedG5 cYCAbX8p2TaEq EzH8UUtzV8OjVMWszsbzN l30nV8sQlIySmE7MXlkX3 EqqaE9PRAsaUAxRJooVFB 5U02wt7F0SQPs IYTjQWI7bKY3kZ7csXcdj jogbGVmdDsgdmVydGljYW ncDYvcG417CMHbqChiPdG kDBClGA7ysHdn dGQ+KO55du74Z1CwNyyqL xo3BNWrFCT6fUH0yD1iEJ PoKSlty9I2fAJ9R2XikkL obu3al5haBMSo RBprC63ztDIbp7N6XWSqx EG2TXJbuAejXfBilY73Rj c+LUIjmUlsu5WuOtcvl3m ay1ojqNf6RoRm KVOorfKkyMnhUBN9k1ZpS y74N52wWOdiCTXqNTVlAG IeRVFsnZyeng4afF8lCn5 +ARRdyOH7dRD6 aP3eArJdNyQ2RYemL855C xJtgNZcOkedc8wno8decY r4XrIqVOYjzhZodMntNFL 4e3PwOj65R1Bo iMrdb9UcYdc3tg16mHRwo 1U2vTT9L0GfQFDxprumxP UhoPhaVF9tKXUwsvckSMJ weA0sGVVfI4s4 RnVaZcS6VDejC0ZjqfM3C DKaaUZmXRHznLMKtS0day waf2qketybQsAjHADzNOg 5URt6SXYxxHjm MzRrPPW9OyR8OFB1rFQqd E2egKvcknhtcX5hKar+UG t5n0hwnOKdYA6hhXN9HQ0 8AA43xUJtr2V0 rMV4N0BjPOEhawddpckuy LP6AZXeLRRqdG36Pj6ygE bdPw8hKDCiKZK3RAMayVO xP0AxlG5gWuPp ZIWlINAfZ5DogYOiYBjwM 621GMtxVjZ2RJUulgVfK1 MiABZlfSrxMxZ0x3D9Ch6 NGB08LN94SK56 hIGtp1Z2eEV2G5BrGAQjs oeqgdrnuHQ7KQTbQNDnzQ 13Ot8neFtlOz4bILYdJES 5ZUReaEWpG5Fq eB1iXiIuFYTjLIPgX2Vbq KPwQYbmH948BVgyTsX0WJ HartAvP3KkGLNerQauEaD 8i4Y3Wm2ROy92 WA41ZL93hUJwj2N6fGU9C 6GoXBEukgbadaawnZL0NA PvWNQceZ35Hd1tdJcbLr2 oSPDaHDI7TAZp yBXkT2IesI4xFgSxEDKdV XOrC2OhmNVcZLemH127HJ lkDfQ3ONTuezNdW8LvLXO dzKksUdT5d1E2 Pv0JJMgwnqx8S0HnIcqao HI+VH98TOIwVV87fPGcoV Ptx1jjgJp3WqFtGYWsLWP 8uAazGGqca4Ly ZXI (more content not included)... Normal [facility] .Auto Diff 106-07-2024 Auto Sabine % 6 % Normal 12 [facility] Comment on above: Performed By: #### 1 [id number] #### [facility] (DEFAULT) [address] [place] [address] Baso Abs# 0.0 x10 Normal 0.0-0.2 [facility] Comment on above: Performed By: #### 1 [id number] #### [facility] (DEFAULT) [address] [place] [address] Basophils/100 WBC (Bld) 0.6 % Normal 0.2-2.0 [facility] Comment on above: Performed By: #### 1 [id number], [id number], [id number] #### [facility] (DEFAULT) [address] [place] [address] 21626 Eos Abs# 0.1 x10 Normal 0.0-0.4 [facility] Comment on above: Performed By: #### 1 [id number], [id number], [id number] #### [facility] (DEFAULT) [address] [place] [address]3740 Eosinophils/100 WBC (Bld) 0.8 % Low 0.9-4.0 [facility] Comment on above: Performed By: #### 1 [id number], [id number], [id number] #### [facility] (DEFAULT) [address] [place] [address] Lymph Abs# 2.9 x10 Normal 1.3-2.9 [facility] Comment on above: Performed By: #### 1 [id number], [id number], [id number] #### [facility] (DEFAULT) [address] [place] [address] Lymphocytes/100 WBC (Bld) 36 % Normal 14-48 [facility] Comment on above: Performed By: #### 1 [id number], [id number], [id number] #### [facility] (DEFAULT) [address] [place] [address] Sabine Abs# 0.5 x10 Normal 0.0-0.8 [facility] Comment on above: Performed By: #### 1 [id number], [id number], [id number] #### [facility] (DEFAULT) [address] [place] [address] Neut Abs# 4.4 x10 Normal 1.5-9.2 [facility] Comment on above: Performed By: #### 1 [id number], [id number], [id number] #### [facility] (DEFAULT) [address] [place] [address] Neutrophils/100 WBC (Bld) 56 % Normal 44-88 [facility] Comment on above: Performed By: #### 1 [id number], [id number], [id number] #### [facility] (DEFAULT) [address] [place] [address] CBC w/ Auto Diffon 5 Erythrocyte distribution width (RBC) [Ratio] 14.5 % Normal 11.5-15.0 [facility] Comment on above: Performed By: #### 1 [id number], [id number], [id number] #### [facility] (DEFAULT) [address] [place] [address] Hematocrit (Bld) [Volume fraction] 37.2 % Normal 33.7-40.4 [facility] Comment on above: Performed By: #### 1 [id number], [id number], [id number] #### [facility] (DEFAULT) [address] [place] [address] Hemoglobin (Bld) [Mass/Vol] 12.3 g/dL Normal 11.3-15.9 [facility] Comment on above: Performed By: #### 1 [id number], [id number], [id number] #### [facility] (DEFAULT) [address] [place] [address] Man Diff? Auto Invalid Interpretation Code [facility] Comment on above: Performed By: #### 1 [id number], [id number], [id number] #### [facility] (DEFAULT) [address] [place] [address] MCH (RBC) [Entitic mass] 27 pg Normal 24-34 [facility] Comment on above: Performed By: #### 1 [id number], [id number], [id number] #### [facility] (DEFAULT) [address] [place] [address] MCHC (RBC) [Mass/Vol] 33 g/dL Normal 26-37 [facility] Comment on above: Performed By: #### 1 [id number], [id number], [id number] #### [facility] (DEFAULT) [address] [place] [address] MCV (RBC) [Entitic vol] 82 fL Normal 81-100 [facility] Comment on above: Performed By: #### 1 [id number], [id number], [id number] #### [facility] (DEFAULT) [address] [place] [address] Platelet 368 x10 Normal 138-427 [facility] Comment on above: Performed By: #### 1 [id number], [id number], [id number] #### [facility] (DEFAULT) [address] [place] [address] Platelet mean volume (Bld) [Entitic vol] 8.6 fL Normal 6.3-10.2 [facility] Comment on above: Performed By: #### 1 [id number], [id number], [id number] #### [facility] (DEFAULT) [address] [place] [address]3319 RBC 4.51 x10 Normal 3.70-5.30 [facility] Comment on above: Performed By: #### 1 [id number], [id number], [id number] #### [facility] (DEFAULT) [address] [place] [address] 28739 WBC 7.8 x10 Normal 3.5-10.5 [facility] Comment on above: Performed By: #### 1 [id number], [id number], [id number] #### [facility] (DEFAULT) [address] [place] [address] 42062 CMP Standardon 06-07-2024 eGFR Non AA >60 Invalid Interpretation Code [facility] Comment on above: Performed By: #### 1 [id number], [id number], [id number] #### [facility] (DEFAULT) [address] [place] [address] 03668 eGFR AA >60 Invalid Interpretation Code [facility] Comment on above: Performed By: #### 1 [id number], [id number], [id number] #### [facility] (DEFAULT) [address] [place] [address] 24589 Albumin [Mass/Vol] 3.8 g/dL Normal 3.5-5.0 [facility] Comment on above: Performed By: #### 1 [id number], [id number], 8208790 #### [facility] (DEFAULT) [address] [place] [address] 66853 Albumin/Globulin [Mass ratio] 1.1 {ratio} Low 1.4-2.6 [facility] Comment on above: Performed By: #### 1 [id number], [id number], [id number] #### [facility] (DEFAULT) [address] [place] [address] 63815 Alk Phos 79 IU/L Normal 32-91 [facility] Comment on above: Performed By: #### 1 [id number], [id number], [id number] #### [facility] (DEFAULT) [address] [place] [address] 45617 ALT [Catalytic activity/Vol] 21.0 U/L Normal 14.0-54.0 [facility] Comment on above: Performed By: #### 1 [id number], [id number], [id number] #### [facility] (DEFAULT) [address] [place] [address] 83174 Anion gap [Moles/Vol] 3.6 mmol/L Low 5.0-19.0 [facility] Comment on above: Performed By: #### 1 [id number], [id number], 6605303 #### [facility] (DEFAULT) [address] [place] [address] 39237 AST [Catalytic activity/Vol] 18 U/L Normal 15-41 [facility] Comment on above: Performed By: #### 1 [id number], [id number], [id number] #### [facility] (DEFAULT) [address] [place] [address] [id number] Bili Total 0.5 mg/dL Normal 0.3-1.2 [facility] Comment on above: Performed By: #### 1 [id number], [id number], [id number] #### [facility] (DEFAULT) [address] [place] [address] 18261 Calcium [Mass/Vol] 8.2 mg/dL Low 8.9-10.3 [facility] Comment on above: Performed By: #### 1 [id number], [id number], [id number] #### [facility] (DEFAULT) [address] [place] [address] 36773 Chloride [Moles/Vol] 113 mmol/L High 101-111 [facility] Comment on above: Performed By: #### 1 [id number], [id number], [id number] #### [facility] (DEFAULT) [address] [place] [address] 50552 CO2 [Moles/Vol] 24 mmol/L Normal 21-32 [facility] Comment on above: Performed By: #### 1 [id number], [id number] #### [facility] (DEFAULT) [address] [place] [address] 22267 Creatinine [Mass/Vol] 0.67 mg/dL Normal 0.60-1.30 [facility] Comment on above: Performed By: #### 1 [id number], [id number] #### [facility] (DEFAULT) [address] [place] [address] 62801 Globulin (S) [Mass/Vol] 3.3 g/dL Normal 1.5-4.3 [facility] Comment on above: Performed By: #### 1 [id number], [id number], [id number] #### [facility] (DEFAULT) [address] [place] [address] 46463 Glucose [Mass/Vol] 92.0 mg/dL Normal 74.0-118.0 [facility] Comment on above: Performed By: #### 1 [id number], [id number] #### [facility] (DEFAULT) [address] [place] [address] 46666 Osmolality 273 mOsm/L Invalid Interpretation Code [facility] Comment on above: Performed By: #### 1 [id number], [id number], [id number] #### [facility] (DEFAULT) [address] [place] [address] 02946 Potassium [Moles/Vol] 3.6 mmol/L Normal 3.6-5.1 [facility] Comment on above: Performed By: #### 1 [id number], [id number], [id number] #### [facility] (DEFAULT) [address] [place] [address] 34731 Protein [Mass/Vol] 7.1 g/dL Normal 6.5-8.1 [facility] Comment on above: Performed By: #### 1 [id number], [id number], [id number] #### [facility] (DEFAULT) [address] [place] [address] 57477 Sodium [Moles/Vol] 137.0 mmol/L Normal 136.0-144.0 [facility] Comment on above: Performed By: #### 1 [id number], [id number], [id number] #### [facility] (DEFAULT) [address] [place] [address] 48902 Urea nitrogen [Mass/Vol] 11 mg/dL Normal 8-26 [facility] Comment on above: Performed By: #### 1 [id number], [id number], [id number] #### [facility] (DEFAULT) [address] [place] [address] 37879 Urea nitrogen/Creatinine [Mass ratio] 16.4 mg/mg High 4.6-16.2 [facility] Comment on above: Performed By: #### 1 [id number], [id number], [id number] #### [facility] (DEFAULT) [address] [place] [address] 20178 ED Note-Nursingon 06-07-2024 ED Note-Nursing PT. C/O [...] x4. PT. has a steady gait. Normal [facility] Extra Redon 06-07-2024 Tube Collected Yes Invalid Interpretation Code [facility] Comment on above: Performed By: #### 1 [id number], [id number], [id number] #### [facility] (DEFAULT) [address] [place] [address] 87408 UA Standardon 06-07-2024 Breakpoint UA [facility] Comment on above: Performed By: #### 1 [id number] ####[facility] (DEFAULT)[address] [place] [address] 96632 Color (U) Yellow Normal [facility] Comment on above: Performed By: #### 1 [id number] ####[facility] (DEFAULT)[address] [place] [address] 71798 Glucose (U) [Mass/Vol] Negative Normal [facility] Comment on above: Performed By: #### 1 [id number] ####[facility] (DEFAULT)[address] [place] [address] 45836 Ketones Ql (U) Negative Normal [facility] Comment on above: Performed By: #### 1 [id number] ####[facility] (DEFAULT)[address] [place] [address] 18958 UA Bilirubin Negative Normal [facility] Comment on above: Performed By: #### 1 [id number] ####[facility] (DEFAULT)[address] [place] [address] 42900 UA Blood MODERATE Abnormal NEGATIVE [facility] Comment on above: Performed By: #### 1 [id number] ####[facility] (DEFAULT)[address] [place] [address] 89179 UA Clarity CLEAR Normal CLEAR [facility] Comment on above: Performed By: #### 1 [id number] ####[facility] (DEFAULT)[address] [place] [address] 32398 UA Leuk Est Negative Normal NEGATIVE [facility] Comment on above: Performed By: #### 1 [id number] ####[facility] (DEFAULT)[address] [place] [address] 71326 UA Nitrite Negative Normal NEGATIVE [facility] Comment on above: Performed By: #### 1 [id number] ####[facility] (DEFAULT)[address] [place] [address] 21517 UA pH 6.0 Normal 5-8 [facility] Comment on above: Performed By: #### 1 [id number] ####[facility] (DEFAULT)[address] [place] [address] 74623 UA Protein Negative Normal NEGATIVE [facility] Comment on above: Performed By: #### 1 [id number] ####[facility] (DEFAULT)[address] [place] [address] 98378 UA Spec Grav >=1.030 Normal 1.001-1.035 [facility] Comment on above: Performed By: #### 1 [id number] ####[facility] (DEFAULT)[address] [place] [address] 30817 UA Urobilinogen 0.2 mg/dL Normal 0.2-1.0 [facility] Comment on above: Performed By: #### 1 [id number] ####[facility] (DEFAULT)[address] [place] [address] Urine Source Clean Catch [facility] Comment on above: Performed By: #### 1 [id number] ####[facility] (DEFAULT)[address] [place] [address] US 1st Trimesteron 06-07-2024 US 1st Trimester [...] Apolinar Toussaint MD 06/07/24 1:58 pm Technologist: [facility] US Transvaginalon 06-07-2024 US Transvaginal EXAMINATION: [...] Apolinar Toussaint MD 06/07/24 1:58 pm Technologist: [facility] Normal [facility] hCG Quantitativeon hCG Quantitative 5.2 mIU/mL High 0.0-0.6 [facility] Comment on above: Result Comment: Post -Menopausal Reference Range is: 0.1-11.6 mIU/mL Performed By: #### 1 [id number], [id number], [id number] #### [facility] (DEFAULT) [address] [place] [address] Coding Summaryon 06-04-2024 Coding Summary HTMLBase 64 RqtfasruEXd1uZi+PGhlY WQ+OX7FABDtE93mdVEzyT 1aQ7TWTZoGUtylTIEQTWm BJoIcgxWoQJ5szEGbJRTr IC8+FF7tENRmMaerqXBpz 0Q1oVS5X76rtl5zFBzbpU J7OBOrVsVmwjfwg0badJp 6IDcuNmluOyBt ONKfeU57RIL2dK79Gw18q HJhuQWth3joaJp1PiHvIR DaFRW2vLjcGCptw8QfDBI zS08akCJkc9E1 EWYumXdmfWXvDbKgkBA5n W0iLRupkxwfi9gsvwuwOf s8cz02rMHqo8I4aNY3H5T idzZ6AAMatRId QtmqmLXXbN9clbphh9sxd kwrShSsQSDeDFs3ESj6JI WcyJdaEhXqXE49FUC7BDQ tkaUkD9BbXRGd kJuuMyU3u0W4Jw6TL2WCJ xfiT9ZHMXXICLpuyRA+PC 82lv19T5LdUjjfXnj8FHY qGBR4dUU8sA5d VXGmVGjmb9F4oYT1N4Oro nRdsm3gz2agKALeYZcbY5 3rwYSde5T3NOGyrKL2WMB seNwhQpGxsD42 Oyc+XWPjaTpyq8MwPoqvj 9tnr8yrbYe3TejpUZMnfg HodYhdHJU3o5CuPo5tMHK arKE3gGO8bZ9t FkLyGtN4RFroX424YaRmi DDpBxfoG60dP2OvdTH+PH UuFwm4EDWbbTrpRZ1wC1L hZGRpbmctbGVm mXnyQL4yQRAfhubnIKIux L4xFMIcF9t6MmLrTqG7HZ fgL1EtKIRszmfuHx55jV5 hUdUuOwV8KFuu A2QrbpX4AREkbTNiBRkiT XA9A90pw8M7ACAtCIVjEI M0vJZ3fJ9jgVwmrotbbKX mdDsgdmVydGlj JRhwAGzwI206UBClbKszB kNvZGluZyBEYXRlOiAgMD IvMjcvMjAyNTwvdGQ+PHR jMFA9eVyyKJHc hDUyWHmmTq4ocTztyPyiN N9jTGCgmjdbLUWyuR7dVU IkcZXecOtrDE3yGQHpogg cb902RhVhKYO3 EQUwiHArS7BvhR3kFsEnX BZbJKApS4OwqYHtFShuF0 98CCfdStI6LNPwksOiD9S sLWFsaWduOiB0 a4X1Fk3Yg0VpbforE1Wub USyPaDaBsvvKWz7C7SvJz wvdHI+CN86LXFtIL01JIu 8GCJ1yFbmDYjd BBEeQ5IpqV9zLgCvHIKpD GRkOyc+PHRhYmxlIHdpZH RoPScxMDAlJyBzdHlsZT0 bYp6fCDMwNXHx dSvtiYWqGqCzj3raHDWtS UqdLE9loJilI8ZdiTG2PD Ryz3h3Tj93V03mR3OghPB +JUDybKU8tZM3 mR3rFvZaQzV2IPmfZ604H qMwnUSlQsxvm6rsw6httS t3EvH2UVBubwVmrCioTKS 4a7XvJy29C63a IHdpZHRoPSIxNSUiIHZhb Gebxi2qfP4cCq8+PGNvbC K6sNF6iO2fFuOwDtV4LPp lO087WaGprDPx Qajec3meq0lkrKl6QxFgP QEhvaGoxMidJPR9b7NcOq 10E1IycDufy4ZcHao3ha9 8mYQvb2M0gKS3 E0NmMFSnncecdYTuuChxD N9wNNQofyqvLIKdsA9fBE FhV0g1ZxVyPvH9AJqsH0I aooV1BAWoiUBa COJajYYApI0pvdgwj3iwy ihaSgRlTXMwWIu8ZTr3HT FpkAkyKjIvSUO8UfE8WHU 5sOXktI8uzCzc ehhneI7cEwe+RRS2lLQql DHUWF6dFahkmOP+PHRkIH P3bVqxMJjsIKRgcX0xVEK vB5b9MwLfPmW7 DWbxG2SmizT3PHLwfOSlI DBmxXSKcB7gwbytp0ikah whApAxHQQyQVz9ELy8XKO saWduOiBsZWZ0 AiT7CPF7wCKxaA0tuAisp ycdxU7nWqu+QmlydGggRG M4NLq2A3GnZwz3TPFmsLy hBP7qaUQgESyb Qb6igAltaQvgWD4tSTTwk epbk861UiQho7zuBNHxtW KsAWqzKXJ7R90aq9M3VKJ gRLTxWYR4nLZ4 bD0fhEpncxfthLBxxBrta cMfkAczZRixCPjmX123LV RenEgsOhTnWUd5V3IwAwe 2YVXbvLssUW1c uHRoLBhbHw2krUgoaRclR D9tXIQzjalnu374NbUhj9 rhDTNfhYLfNPhlCPO1V71 wj5Q1ACVqNEKp LSB3iRL7nE4mzInrhbzic GVmdDsgdmVydGljYWwtYW mwR758MCKkhLzmZxTlvXa 1J1ZaLii3ILXw nGetFX1vfCNzNGksRk4gq LwbrIglAN2gFXAsfvnno7 12PqIvl6nhZNSreTOjEBv fBWP1Q14xw0G2 NZMtWAOcXSY2fPC8uJ6jb GlnbjogbGVmdDsgdmVydG koTYhvTRxxU233BYWakMy nPlBhdGllbnQg ZBopGHi7M1SrLipcvRI+P O65KLEbYW63lVEwcQGyx6 wccNz7TlBoTWDyPLY1lIo tCTqia8LgAKSv J54haJDkd5E8SHOgvAytw AIqWpGfaWQ1mK1fTNjtjd ert8dlqisbPqssk2xxbw4 8gV19W02iGGlv ZHRoPSIzMCUiIHZhbGlnb j4mrB7fNh1+IWQvjZV1bF C0xM9lZJRdVrD0VPniQ06 9InRvcCIvPjxj m3nhs0kwkRe8JwU3SBZis pOntLqoQWV7j5UlVm87L9 9sIHdpZHRoPSIyMCUiIHZ mvAcxbw5omK5b Ii8+CTAoaWW8tFW9hV1pU aEyAdN7OSymO285MrQehI KmHbhiP02dM8WzyNF+PHR dKrw3ZJBzyUud VY8bdNRtSVhiDu1cIUB8I iEvAxFzZQbjE2BjHAWdej nlgzqvcWO9GTWrIVRdiS5 5Lm8gtLwaIANy aTQEtY4aigrtr5dzsxlvJ pCsGACkUHp4IMd1REAydE xyHuAvNXF7ItG6JCY3zPY imU6avUzyuhcx zI3jY8WtBKJizrjuTp33d T8aGtPyObY6GQvwHdj+R0 uGMlIXMQklF1hECGYYBWm XHH3WTGzfxHQ+ FJOtEME0nEltKCfuOLSve K9tFKFtG1l6ZjBwNkJ6OX xfZ4WwBDKxxypnRh33uU4 qSxItYeL3TWbo A9AvwuY0CYRgfISiIWbaJ NL3A13pc5T8JWAxFLObOV L6qHN6kL3hlTcwbaqnqDR mdDsgdmVydGlj TPutDRgxV715QJXbgSmcS bB7BoQqQkIuBFZ0S0JbZr d2YMZfvOhtVW4plLZzMMn kNn8aaFgyvFyy QN7eCWGfldssIXThnG0mA NBnwGUntMyhMJ6sQJXcsx jvt831KvUuSWH9DKMulCS vT0FqyS3fApLp SMKeDLAxF2UplVSlKObmB 445VCcnTaC5LRXrclPxG8 WgTKKriLepQkE3o1W3Um8 yMiBZZWFyczwv dGQ+XTBsYEW3gGrcDJpoU IEocG7lEFQaQ6z1TrAnRo Z5CZoeM3IhKVFgwyyhDo6 6iN9rEmJgCgR5 SKkvA8OhtaO3WIMpfMEiV TnpUJV6V53hi9T1RPFkGW GpNXG1vVQ8sP4ryUwseub gbGVmdDsgdmVy iKtsXJjpBDpaH739WFOvg DsnPkZFTUFMRTwvdGQ+PH GpKPH4oYxaTMcfQMQggU4 yMLMbX9q4XfZg BiX9IUbsF2ChRBOqvuuhI x03wB8nLeDrAeM9HAuvH6 NbemG6BAHtyGIpBHsaDHP 8I24ao8K2QAMn CXThMLX2xIO3uX0tjMnpb jogbGVmdDsgdmVydGljYW fgFEaoZ189GJHxtHdyXn6 AKN30HQ58E2Fn PjwvdGFibGU+PHRhYmxlI HdpZHRoPScxMDAlJyBzdH qzLJ6tZf9mKGBcBGMjxJj keDYbVyNhg8nd YLSdRXfhHL7bhEipY8Bqg LS0EJIjb3l7Pk50B49vR9 JvdXA+HFRqeUQ8cRC4wE9 tNxEeBxT9YLlr V067WdMfkCEnTsxkv6nhz 2ptdNv4YlYfSPBkhcHliN zgOUJ7v5OuMo26Y49gDHb pZHRoPSIyMCUi JYDtrXidhu3aoT9nYf2+P FGihKM6iPQ6bX9nXeMvEm U4TRogB380YqFsdXOiTbw sD07pS9FhjSI+ QEQfMov3ZXFawEoxYQ8yr JXcXHdiTt8fPXW1MuRzCl IqOJhiN9VmXOAfniirlsn hwWH0QSUdQWOz fK73Ma1keThrLf0gVSHmF DC9YUIbeHPwS2PqjB5lFq MpOGPzYWOqU4QsnULlFKb uY845WNonJrU6 WIPbhmGxG9YeBCMdnXofD lP8k5R1Gx5IlJddrKAfUV 0fPlGcYZh8L0SlCzi2ZAN clPdvIZ6xeVWm DZqwZd6nwVtboYnwAJ9fT XKiujncm888NjVgk5wfPW PveKAaYJwgYLL3Z88lc5G 9XONkDBHaAZO0 sMT1jH1llBnaoiykjCRrv DsgdmVydGljYWwtYWxpZ2 21CSZkpLvxEiEVLhk0N9C hKpk3UPLptCcn AV5plPJyNEzuYt8yqIkqp JhwRY1bKQEolnlwj473Jn Gkc3adWMDwcRHeDZrvRTB 3L68lq0G1OFLo DKDbLHF8uPI2eA1xjTauv jogbGVmdDsgdmVydGljYW yhHFpzE475VOQlgFllWi3 WVvx3Q3AuIaa4 LUIuxHtiUG2neNLxRTljN m9nkPcirCsaOQ4kJLTwiq wey440JeOmg1kcRISsyGI wVWbhBLW8C61j n7S3EXThCXKlSCO8xYY2m O6roMuovwqbaEYmbZsdks CaaUrfYLjnJMbnX113WXX vcDsnPlBheWVy OjwvdGQ+CL87iq01W1TzC kkbRnb4CWBnDNT9qBF6zA 2yXTKePXfbh9T0zND4T2Q ykuSbdn8bp4pq YXB (more content not included)... [facility] Coding Summary HTMLBase 64 UazdnkwmTTy0fEd+PGhlY WQ+FM6IRXHiD65ztGLmbY 1vH6ZVSIwULxzeERYFMEl ONbOmacPyGO5cmPQfWVKq IC8+YU1fKKDdAxjsjQTdg 5S2tXV3H36bvq0lLCchbT G1VVZxEhIkgrzuv2jjdBn 6IDcuNmluOyBt MDEaoK51VRG4zO24Mv72j UDiuNOby2xkhIu0InOwOV CiVFS7mAtgQYntp8LcJET nO17iwGRqb4L7 OYEonCsozFCmLoWyoTK4a G8aFPygnotmv1mhkodyZp z8gr23zSZxo7G4qVI8L2X plyG0ZQAgcBSo GqzufRUHhI6grxsrw8uus ulgWyEyXOQaGAb5KAh8RU RkkHuaSsLzHK34FDM8RQO rwpYoI7HhSEXz nJfpFdL3z9S6Ex9ZD5ZMH jzjO6XQNDGHPDvfsEU+PC 20eq29N5ObEdhpHrs2YUZ vWAL1kBJ1fU4w JJLeVYplf0F1iPA4A4Qtz fDndc8xv5pmCPCkJKvfB3 4seFTcv2D4ESJmfSG6RYS iuHbpIdAryX18 Oyc+DTYmqTahl1ExRaxra 4bvx0girXq5QlmqIVJikn PtnYbyQHN3m5XuJy6mAHO prRG2qSR7rC5q HmZdMgG5VOulQ481ByVep JJxJpvyZ45yQ0TthHC+PH XtYct4AETwdHlfRI0wS8Y hZGRpbmctbGVm gYlkLV2mQCBzuivlMFHri P3iFQCyK7d3RnWhSoD9RZ caI5CmGHTngqqcGl75mO3 fEmOvKnN3VGdn E6AnasJ5ZARksEAhQDxlV EZ0D04nv7Q1JRXnHUJyCJ U9vWY7wQ0oqMebpoxlaBA mdDsgdmVydGlj TVrwNLciL480KEJuuPfsS kNvZGluZyBEYXRlOiAgMD IvMjcvMjAyNTwvdGQ+PHR yHAR9gTqvIXAi eOItEOdsUr0pnZflzNqbX M9kFMKfcoqsTBQunP7hPZ BznHRnyTmtBB6yFVCxskf lo705IgKtXVE3 NKJqtXTeB3JfiI7dEsFeT XNbSFEaO2UezWFdIIiwU9 67FLqcBfT2CIOtftZrM4W sLWFsaWduOiB0 g2G8Gc6Ho1SjkzikS4Njl DXfCcTqQzbdLCv7Q4XuMd wvdHI+QT63JPIsOD63CIs 0BSW5rKabJIfw TOWfB5ZzbK8pZbZhMVHiG GRkOyc+PHRhYmxlIHdpZH RoPScxMDAlJyBzdHlsZT0 vQk8rDFYiOMKc mMrvcRQbEvBtu8nwRZNcG UlmWM7ngOndB7VfhXX0JA Ujn3e6Aj62H01oP6NuwIG +WPCqmDH6mVD5 uY2aQyCcCiX7EColL605X mEslFApUleam5koq6amnZ t6GxN3ZSDbjuEtbOzmKYW 4f0BfIn47M91j IHdpZHRoPSIxNSUiIHZhb Chbvu5kvI0kDc5+PGNvbC L4gAT2aL2kRmObWvD3KSa aP866HdIlsFRo Otapa0pet4ubsKo9HlPsU WJsjiXdpKhiJWH5x7NqYd 88S0VexEuqw6XdOmk7fz2 4cLGfz0R4gWQ0 N0SaMNUbaystvYPysFtlY C2xUHPhriwnGECniG2cSI FsS6w3MxMwMdE2HXtmK9S naeT8IRQbmTQr APMtuTTYmA8kqjwwd7jsp lxsJoWnOLYvPOz9JHc2VW EdwGvfRdVcLXS6ZnS8KFU 6lXVroK8poHdg npekkO9lNiy+YBV4yAAuk PTYES5zJpenyQE+PHRkIH T4qLjcMOeqQUPxjJ2rAKX vR6o5ImAoKxS3 SHngC0GdcyX0DEMunLWvY ILbfYBPeR7bvpxbf7cnas lpQfZzEXLoNBt1EWb8RLE saWduOiBsZWZ0 DtL0EJR1bVZamQ3xaFruz hfvhM1uDwp+QmlydGggRG S1RIu2Q5XaFga7WLMdfKc lLO5kdDCkEYvh Px8gtGmniGgtAE3nGXSyd kffo309CtHic7laPSThwL TjTChsDAT9K04bd8G3FJB vSUWvGSY6kTR1 eP9neWkytpaoeXQscDddt wQwvUjhJIvtFAniQ431CM XzkJokIfKqPHz4Y1DuOcv 1LXVuhPgyCU3w yOHqLOafOy8olIdfoDtoV M4yUGIojzhmw196JoJnb2 joQBHrsFHeOTvkNTR0K65 gm3W7QFEcOSFp NTD6dSQ7jI7dpXlwezreo GVmdDsgdmVydGljYWwtYW msL927AUXzyLdsCoGuoKm 6K0DePqu8GVMk vEqpXQ5csTHqFGxnBt2ew TedfCnjCH7lQMTxtiwuc1 05VcUqm9soKDWouAAkMHw cYZD1O34ae0G5 NDSpMCGmWIP6qYQ1aR3hu GlnbjogbGVmdDsgdmVydG ysQGnpDQxjD004CBOezGc nPlBhdGllbnQg BLpuMKd0X3BmOrghwEK+P D84GGSwYS17mDXhaMTij5 chrRn3XiUtLNDeSKQ7iTb xQZzua5IkJIWm A45hzYNyt7G0NCLqfLvgu KFrChQxaJA4lT9kIEimpw fyz2uwpifcMecps7fqjz7 5qN19I72yYSsk ZHRoPSIzMCUiIHZhbGlnb m1riE4aRb6+NYOuyNN4vL E9yA5hTFEeEpH3WIddI49 9InRvcCIvPjxj e4kdx3mkvAn4FwQ6JOZcg aDuvOwiLWS5p6JoPg52C1 9sIHdpZHRoPSIyMCUiIHZ dmEeluq1jmS3r Ii8+NZPkeEN3oKF7yB9qO aKrFlM0GPuoB668RkAuuC AiSbfrC46qY3SgqYT+PHR dGfs4VGEqaVhh WL5ixVYqYLdvYt5iUJS9W kSbHlEuTAgoI1VwBZRfpi iexpqwvLD3XFYdBUHzgI3 3Ag9faNhhLHVy eHINtN5ajgakm6ytfozaT sRpUIFpBJa4LSc8TSAaaK jfLjQzUEI1FdU4VGB0xYC ouI1taKcstqpp rF9cT9TrMNZkcqeuFl80v N4tRmNhFzN8DOloSio+R0 qPRkERFXmrQ9sLCVEDMMd OPS4TWRxaaIS+ GAFxIDE7lUdlPJmeDSJce O7yNEJxB0r0LqRrVwD5PK ciZ9UoZXDuogjwVg61tE4 zWqJtShS6AUvf N9LuayC2TNGxpUYfJZawM NM6K24hd6G9PMCmTVPiKT R7mXP0lU9idDlopabvaBH mdDsgdmVydGlj NDrgUFguK259RACqbTkwP rQ7EiEqKdGtZRL7K3UmPu o9HFDraMwrYA7rgHLiDIs nGy9jkHsdwSvy BT3iEIMrpztfZXLzfP2uX RMbnXVuxWesQG1iWADjjs txj641NtTfIXP0KKQzgDK mY1DqmI6pRmLj NLCzXVVaE3DutQNaDUfkE 505HWwxByM8FUYflsHdB9 ZlJAEmtAilIxT7p1Y7Zw7 yMiBZZWFyczwv dGQ+RTBuPCH9tZpwYEyiG HHeoP0zNEOzY7a7BtJpOr T2OAnqQ8XoROBftmtxFy6 1uL2fBgIuFpD9 CNjgQ9RzdnA2FGYfdZQwM JooTVQ6L06ec7T8TZMmFR VoDSU1gHG4jX0paChqfep gbGVmdDsgdmVy hWjlJIvyUHrmV683BJVwg DsnPkZFTUFMRTwvdGQ+PH HaHVS1yJljOCwmYDMlyB0 iHURhV8b0WrCu SvL7DHmfJ2TvBPEzzwxhZ d61bZ3mMyVnDsA5DLilQ4 GyfxL8JCSdnALgVOayWBR 4Q11qt8M3TMNr DYVzTAJ4iCT6yX7ohQkkj jogbGVmdDsgdmVydGljYW zuQMlbA789TGQjvIagOtN wG8JmupcmXfNM aLIyEXGiSM56QQ15AW94H 3RyPjwvdGFibGU+PHRhYm xlIHdpZHRoPScxMDAlJyB swErdVW2jVt2l ZGVyLWNvbGxhcHNlOiBjb 2nwCLTlUFctXK6fqKghS6 VqpPP3RJNne1f5Wg35N97 lY2KdpCL+PGNv uFT8iFN2xC0uUyOgZkA8X CagT985YnEdoYVsNpujy8 tse4ameQe0StUtTWKcurU npSmzJKC9z1Fg Bb03P09sNKauHIKtXXIuN HIsWRIagDeytd2hnM8jNy 8+GLMlaOU5sCC9hZ6eUgB zYuU4CEtiM747 FvXmoHPcTegxP73fT4Veh XA+HHLqAmz5SJLkaSrsCZ 8anFJhYXasJz1wFVM0SwN eWgVtEYgyB0Kh RKHtqlofduejcVS9ORQgW KVgiI96Ro9xnNqjBy9hYF SwEAG6KLAtaYUlJ5IceI9 yOiAjMDAwMDAw M5GdiQDeHHoiI328INkgC dM5GKOloqKmP6WoFNNlnT ihTdR9w4F8Fs2BfEhyqTY lPN1lGuAaGPb6 B9UnYot0OVXoyVscSJ4im WMnYXzxEt5slVadnKjcRS 2iIXZgnsbew913KtXti1e kIDEwcHQgVGlt SVE8Z22de2E8WTUuWMEjS XP6dMK8wO6orTgbvyqmbV VmdDsgdmVydGljYWwtYWx lE057VGGlfPju TlXNOvv0J8OgWjl8GWJnv HduKP7amUXoVTaqYz9wgD iznBqoZN1sCEPjbztzv69 8BoKxi7yjVOOw tYTsGZtyYUM1F63pt7I3F EFoWKHtJXT2aYQ2zQ0ozY lnbjogbGVmdDsgdmVydGl jKAkaGSupL225 FWGonDulRa6AIom6Z7OwE rb2XVSafJggXM2vxXBsSA ygNb6tpIypgOuoKI3nLII vunknj417VsSb m0dkSAAztBZnOWglRBD9K 41ib2T0WJFaPNPoICA6pC X2xW0zwBjvrogsdYPseXa gdmVydGljYWwt ASryQ470ISSwhOeyOsGzk WVyOjwvdGQ+SC50gi77X4 ZqQlrdWui1UTLhCKB9oUT 5lM5hULPzWIja c3R (more content not included)... Normal [facility] Provider [place] 06-03-2024 Provider Orders [id number]#1 .00OTGTIFF [facility] hCG Quantitativeon hCG Quantitative 98.7 mIU/mL High 0.0-0.6 [facility] Comment on above: Result Comment: Post -Menopausal Reference Range is: 0.1-11.6 mIU/mL Performed By: #### 1 [id number] #### [facility] (DEFAULT) [address] [place] [address] Provider [place] 06-01-2024 Provider Orders [id number]# 1.00OTGTIFF Normal [facility] hCG Quantitativeon hCG Quantitative 366.4 mIU/mL High 0.0-0.6 [facility] Comment on above: Result Comment: Post -Menopausal Reference Range is: 0.1-11.6 mIU/mL Performed By: #### 7 [id number] ####[facility] (DEFAULT)[address] [place] [address] 85999 BASIC METABOLIC PANLon 05-30 Anion gap [Moles/Vol] 8 mmol/L Normal 5-15 [facility] Comment on above: Performed By: #### N UM #### [facility] ([id number]) [address] [place] [address] 56311 Calcium [Mass/Vol] 8.9 mg/dL Normal 8.5-10.5 [facility] Comment on above: Performed By: #### N UM #### [facility] ([id number]) [address] [place] [address] 72785 Chloride [Moles/Vol] 108 mmol/L Normal 98-109 [facility] Comment on above: Performed By: #### N UM #### [facility] ([id number]) [address] [place] [address] 22454 CO2 [Moles/Vol] 21 mmol/L Low 22-32 [facility] Comment on above: Performed By: #### N UM #### [facility] ([id number]) [address] [place] [address] 83617 Creatinine [Mass/Vol] 0.60 mg/dL Normal 0.40-1.00 [facility] Comment on above: Result Comment: METH OD TRACEABLE TO IDMS STANDARD Performed By: #### N UM #### [facility] ([id number]) [address] [place] [address] 24836 eGFR (CKD-EPI) NON-RACE DEPENDENT >90 Normal >59 [facility] Comment on above: Result Comment: Reported eGFR is based on the CKD-EPI 2020 equation that does not use a race coefficient. Performed By: #### N UM #### [facility] ([id number]) [address] [place] [address] 77140 Glucose [Mass/Vol] 99 mg/dL Normal 65-99 [facility] Comment on above: Performed By: #### N UM #### [facility] ([id number]) [address] [place] [address] 36490 Potassium [Moles/Vol] 3.7 mmol/L Normal 3.5-5.0 [facility] Comment on above: Performed By: #### N UM #### [facility] ([id number]) [address] [place] [address] 21186 Sodium [Moles/Vol] 137 mmol/L Normal 134-146 [facility] Comment on above: Performed By: #### N UM #### [facility] ([id number]) [address] [place] [address] 56875 Urea nitrogen [Mass/Vol] 10 mg/dL Normal 5-23 [facility] Comment on above: Performed By: #### N UM #### [facility] ([id number]) [address] [place] [address] 79142 CBC AND AUTO DIFFon 05-30-19 25 ABSOLUTE BASOPHIL 0.1 X10E9/L Normal 0.0-0.2 [facility] Comment on above: Performed By: #### N UM #### [facility] ([id number]) [address] [place] [address] 40860 ABSOLUTE NEUTROPHIL 5.9 X10E9/L Normal 1.5-6.6 [facility] Comment on above: Performed By: #### N UM #### [facility] ([id number]) [address] [place] [address] 86660 Basophils/100 WBC (Bld) 0.9 % Normal [facility] Comment on above: Performed By: #### N UM #### [facility] ([id number]) [address] [place] [address] 05382 Eosinophils (Bld) [#/Vol] 0.1 10*3/uL Normal 0.0-0.4 [facility] Comment on above: Performed By: #### N UM #### [facility] ([id number]) [address] [place] [address] 04425 Eosinophils/100 WBC (Bld) 0.7 % Normal [facility] Comment on above: Performed By: #### N UM #### [facility] ([id number]) [address] [place] [address] 71887 Erythrocyte distribution width (RBC) [Ratio] 14.8 % Normal 11.5-15.0 [facility] Comment on above: Performed By: #### N UM #### [facility] ([id number]) [address] [place] [address] 84368 Hematocrit (Bld) [Volume fraction] 37.5 % Normal 35-47 [facility] Comment on above: Performed By: #### N UM #### [facility] ([id number]) [address] [place] [address] 54763 Hemoglobin (Bld) [Mass/Vol] 12.3 g/dL Normal 11.7-15.5 [facility] Comment on above: Performed By: #### N UM #### [facility] ([id number]) [address] [place] [address] 37300 Lymphocytes (Bld) [#/Vol] 4.5 10*3/uL High 1.0-3.5 [facility] Comment on above: Performed By: #### N UM #### [facility] ([id number]) [address] [place] [address] 95998 Lymphocytes/100 WBC (Bld) 39.5 % Normal [facility] Comment on above: Performed By: #### N UM #### [facility] ([id number]) [address] [place] [address] 71785 MCH (RBC) [Entitic mass] 27.0 pg Normal 27-34 [facility] Comment on above: Performed By: #### N UM #### [facility] ([id number]) [address] [place] [address] 19439 MCHC (RBC) [Mass/Vol] 32.8 g/dL Normal 32-36 [facility] Comment on above: Performed By: #### N UM #### [facility] ([id number]) [address] [place] [address] 71211 MCV (RBC) [Entitic vol] 82 fL Normal 80-100 [facility] Comment on above: Performed By: #### N UM #### [facility] ([id number]) [address] [place] [address] 81534 Monocytes (Bld) [#/Vol] 0.8 10*3/uL Normal 0-0.9 [facility] Comment on above: Performed By: #### N UM #### [facility] ([id number]) [address] [place] [address] 23994 Monocytes/100 WBC (Bld) 7.2 % Normal [facility] Comment on above: Performed By: #### N UM #### [facility] ([id number]) [address] [place] [address] Neutrophils/100 WBC (Bld) 51.7 % Normal [facility] Comment on above: Performed By: #### N UM #### [facility] ([id number]) [address] [place] [address] 70310 Platelet mean volume (Bld) [Entitic vol] 8.9 fL Normal 7-12 [facility] Comment on above: Performed By: #### N UM #### [facility] ([id number]) [address] [place] [address] 44580 Platelets (Bld) [#/Vol] 393 10*3/uL Normal 150-450 [facility] Comment on above: Performed By: #### N UM #### [facility] ([id number]) [address] [place] [address] 60686 RBC COUNT 4.56 X10E12/L Normal 3.80-5.20 [facility] Comment on above: Performed By: #### N UM #### [facility] ([id number]) [address] [place] [address] 90446 WBC (Bld) [#/Vol] 11.3 10*3/uL High 4.0-11.0 [facility] Comment on above: Performed By: #### N UM #### [facility] ([id number]) [address] [place] [address] 84292 HCG ( test) Ql (U)o n 05-30-2024 Beta HCG ( test) Ql (U) Positive Abnormal NEG [facility] Comment on above: Performed By: #### N UM #### [facility] ([id number]) [address] [place] [address] 53124 HCG.beta subunit IA 3rd IS Q non 05-30-2024 HCG.beta subunit Qn 612 m[IU]/mL Normal [facility] Comment on above: Result Comment: NEW [...] neoplasms. Performed By: #### N UM #### [facility] ([id number]) [address] [place] [address] 36011 URN MACROSCOPIC NURon 2024 BILIRUBIN NEHA Negative Normal [facility] Comment on above: Performed By: #### N UM #### [facility] ([id number]) [address] [place] [address] 62258 BLOOD/HGB NEHA MODERATE Abnormal [facility] Comment on above: Performed By: #### N UM #### [facility] ([id number]) [address] [place] [address] 15932 GLUCOSE NEHA Negative Normal [facility] Comment on above: Performed By: #### N UM #### [facility] ([id number]) [address] [place] [address] 28440 KETONES NEHA Negative Normal [facility] Comment on above: Performed By: #### N UM #### [facility] ([id number]) [address] [place] [address] 22103 LEUKOCYTE ESTERASE NEHA Negative Normal [facility] Comment on above: Performed By: #### N UM #### [facility] ([id number]) [address] [place] [address] 45821 NITRITE NEHA Negative Normal NEG [facility] Comment on above: Performed By: #### N UM #### [facility] ([id number]) [address] [place] [address] 53602 PH NEHA 6.0 Normal 5.0-8.5 [facility] Comment on above: Performed By: #### N UM #### [facility] ([id number]) [address] [place] [address] 99833 PROTEIN NEHA Negative Normal NEG [facility] Comment on above: Performed By: #### N UM #### [facility] ([id number]) [address] [place] [address] 63350 SPECIFIC GRAVITY NEHA 1.020 Normal 1.003-1.035 [facility] Comment on above: Performed By: #### N UM #### [facility] ([id number]) [address] [place] [address] 48639 UROBILINOGEN NEHA 0.2 eu/dL Normal <1.1 [facility] Comment on above: Performed By: #### N UM #### [facility] ([id number]) [address] [place] [address] 83808 US PREG LESS THAN 14 WKS WIT TRANSVAGINALon 05-30-2024 US PREG LESS THAN 14 [...] Arauz MD on 05/30/2024 10:23 PM Normal [facility] PREG QUANT HCGon 025 HCG QUANTITATIVE 280 mIU/mL [facility] Comment on above: 5-50 0.2-1 WEEK 50-500 1-2 WEEKS 100-5,000 2-3 WEEKS 500-10,000 3-4 WEEKS 1,000-50,000 4-5 WEEKS 10,000-100,000 5-6 WEEKS 15,000-200,000 6-8 WEEKS 10,000-100,000 2-3 MONTHS [facility] PREG QUANT HCGon 025 HCG QUANTITATIVE 119 mIU/mL [facility] Comment on above: 5-50 0.2-1 WEEK 50-500 1-2 WEEKS 100-5,000 2-3 WEEKS 500-10,000 3-4 WEEKS 1,000-50,000 4-5 WEEKS 10,000-100,000 5-6 WEEKS 15,000-200,000 6-8 WEEKS 10,000-100,000 2-3 MONTHS [facility] CBC AND AUTO DIFFon 05-01-19 25 ABSOLUTE BASOPHIL 0.1 X10E9/L Normal 0.0-0.2 [facility] Comment on above: Performed By: #### [facility], 1987-08 #### [facility] ([id number]) [address] [place] [address] 75149 ABSOLUTE NEUTROPHIL 8.0 X10E9/L High 1.5-6.6 [facility] Comment on above: Performed By: #### [facility], 1987-08 #### [facility] ([id number]) [address] [place] [address] 26845 Basophils/100 WBC (Bld) 0.8 % Normal [facility] Comment on above: Performed By: #### [facility], 1987-08 #### [facility] ([id number]) [address] [place] [address] 73119 Eosinophils (Bld) [#/Vol] 0.1 10*3/uL Normal 0.0-0.4 [facility] Comment on above: Performed By: #### [facility], 1987-08 #### [facility] ([id number]) [address] [place] [address] 38038 Eosinophils/100 WBC (Bld) 0.5 % Normal [facility] Comment on above: Performed By: #### [facility], 1987-08 #### [facility] ([id number]) [address] [place] [address] 51086 Erythrocyte distribution width (RBC) [Ratio] 14.9 % Normal 11.5-15.0 [facility] Comment on above: Performed By: #### [facility], 1987-08 #### [facility] ([id number]) [address] [place] [address] 93212 Hematocrit (Bld) [Volume fraction] 38.2 % Normal 35-47 [facility] Comment on above: Performed By: #### [facility], 1987-08 #### [facility] ([id number]) [address] [place] [address] 76863 Hemoglobin (Bld) [Mass/Vol] 12.8 g/dL Normal 11.7-15.5 [facility] Comment on above: Performed By: #### [facility], 1987-08 #### [facility] ([id number]) [address] [place] [address] 65966 Lymphocytes (Bld) [#/Vol] 3.2 10*3/uL Normal 1.0-3.5 [facility] Comment on above: Performed By: #### [facility], 1987-08 #### [facility] ([id number]) [address] [place] [address] 22745 Lymphocytes/100 WBC (Bld) 25.8 % Normal [facility] Comment on above: Performed By: #### [facility], 1987-08 #### [facility] ([id number]) [address] [place] [address] 36369 MCH (RBC) [Entitic mass] 27.0 pg Normal 27-34 [facility] Comment on above: Performed By: #### [facility], 1987-08 #### [facility] ([id number]) [address] [place] [address] 83888 MCHC (RBC) [Mass/Vol] 33.6 g/dL Normal 32-36 [facility] Comment on above: Performed By: #### [facility], 1987-08 #### [facility] ([id number]) [address] [place] [address] 33029 MCV (RBC) [Entitic vol] 80 fL Normal 80-100 [facility] Comment on above: Performed By: #### [facility], 1987-08 #### [facility] ([id number]) [address] [place] [address] 07643 Monocytes (Bld) [#/Vol] 0.9 10*3/uL Normal 0-0.9 [facility] Comment on above: Performed By: #### [facility], 1987-08 #### [facility] ([id number]) [address] [place] [address] 83060 Monocytes/100 WBC (Bld) 7.3 % Normal [facility] Comment on above: Performed By: #### [facility], 1987-08 #### [facility] ([id number]) [address] [place] [address] 79935 Neutrophils/100 WBC (Bld) 65.6 % Normal [facility] Comment on above: Performed By: #### [facility], 1987-08 #### [facility] ([id number]) [address] [place] [address] 62626 Platelet mean volume (Bld) [Entitic vol] 8.5 fL Normal 7-12 [facility] Comment on above: Performed By: #### [facility], 1987-08 #### [facility] ([id number]) [address] [place] [address] 88632 Platelets (Bld) [#/Vol] 412 10*3/uL Normal 150-450 [facility] Comment on above: Performed By: #### [facility], 1987-08 #### [facility] ([id number]) [address] [place] [address] 48114 RBC COUNT 4.75 X10E12/L Normal 3.80-5.20 [facility] Comment on above: Performed By: #### [facility], 1987-08 #### [facility] ([id number]) [address] [place] [address] 03823 WBC (Bld) [#/Vol] 12.3 10*3/uL High 4.0-11.0 [facility] Comment on above: Performed By: #### [facility], 1987-08 #### [facility] ([id number]) [address] [place] [address] 34926 CHLAMYDIA/GC BY PCRrobbin 2024 CHLAMYDIA/GC BY PCR SPECIMEN SOURCE CERVIX [...] are dependent on adequate specimen collection. Normal [facility] Comment on above: Performed By: #### C GS #### [facility] ([id number]) [address] [place] [address], [address] [place] [address] [address] [facility] 05-01-2024 Albumin [Mass/Vol] 4.1 g/dL Normal 3.2-5.3 [facility] Comment on above: Performed By: #### [facility], 1987-08 #### [facility] ([id number]) [address] [place] [address] 88883 ALP [Catalytic activity/Vol] 92 U/L Normal 39-130 [facility] Comment on above: Performed By: #### [facility], 1987-08 #### [facility] ([id number]) [address] [place] [address] 53739 ALT [Catalytic activity/Vol] 19 U/L Normal 0-31 [facility] Comment on above: Performed By: #### [facility], 1987-08 #### [facility] ([id number]) [address] [place] [address] 92665 Anion gap [Moles/Vol] 7 mmol/L Normal 5-15 [facility] Comment on above: Performed By: #### [facility], 1987-08 #### [facility] ([id number]) [address] [place] [address] 51534 AST [Catalytic activity/Vol] 17 U/L Normal 0-41 [facility] Comment on above: Performed By: #### C HILLARY [facility], 1987-08 #### [facility] ([id number]) [address] [place] [address] 17012 Bilirubin [Mass/Vol] 0.3 mg/dL Normal 0.3-1.2 [facility] Comment on above: Performed By: #### [facility], 1987-08 #### [facility] ([id number]) [address] [place] [address] 84782 Calcium [Mass/Vol] 8.7 mg/dL Normal 8.5-10.5 [facility] Comment on above: Performed By: #### [facility], 1987-08 #### [facility] ([id number]) [address] [place] [address] 99238 Chloride [Moles/Vol] 109 mmol/L Normal 98-109 [facility] Comment on above: Performed By: #### [facility], 1987-08 #### [facility] ([id number]) [address] [place] [address] 22408 CO2 [Moles/Vol] 23 mmol/L Normal 22-32 [facility] Comment on above: Performed By: #### [facility], 1987-08 #### [facility] ([id number]) [address] [place] [address] 37209 Creatinine [Mass/Vol] 0.61 mg/dL Normal 0.40-1.00 [facility] Comment on above: Result Comment: METH OD TRACEABLE TO IDMS STANDARD Performed By: #### [facility], 1987-08 #### [facility] ([id number]) [address] [place] [address] 34497 eGFR (CKD-EPI) NON-RACE DEPENDENT >90 Normal >59 [facility] Comment on above: Result Comment: Reported eGFR is based on the CKD-EPI 2020 equation that does not use a race coefficient. Performed By: #### C [facility]ARY [facility], 1987-08 #### [facility] ([id number]) [address] [place] [address] 98869 Glucose [Mass/Vol] 92 mg/dL Normal 65-99 [facility] Comment on above: Performed By: #### [facility], 1987-08 #### [facility] ([id number]) [address] [place] [address] 47720 Potassium [Moles/Vol] 3.6 mmol/L Normal 3.5-5.0 [facility] Comment on above: Performed By: #### [facility], 1987-08 #### [facility] ([id number]) [address] [place] [address] 69280 Protein [Mass/Vol] 7.1 g/dL Normal 6.0-8.0 [facility] Comment on above: Performed By: #### [facility], 1987-08 #### [facility] ([id number]) [address] [place] [address] 83735 Sodium [Moles/Vol] 139 mmol/L Normal 134-146 [facility] Comment on above: Performed By: #### [facility], 1987-08 #### [facility] ([id number]) [address] [place] [address] 88863 Urea nitrogen [Mass/Vol] 13 mg/dL Normal 5-23 [facility] Comment on above: Performed By: #### [facility], 1987-08 #### [facility] ([id number]) [address] [place] [address] 40046 CRP [Mass/Vol]on 05-01-2024 C REACTIVE PROTEIN 1.4 mg/dL High 0.000-0.744 [facility] Comment on above: Performed By: #### [facility], 1987-08 #### [facility] ([id number]) [address] [place] [address] 62555 HCG ( test) Ql (U)o n 05-01-2024 Beta HCG ( test) Ql (U) Negative Normal [facility] Comment on above: Performed By: #### 2 106-3 #### [facility] ([id number]) [address] [place] [address] 00084 URINE CULTUREon 05-01-2024 Bacteria identified Cx Nom (U) CULTURE RESULTS <10,000 ORGANISMS/ML NORMAL URO GENITAL JONNY Normal [facility] Comment on above: Performed By: #### 6 30-4 #### [facility] ([id number]) [address] [place] [address], [address] [place] [address] URN MACROSCOPIC NURon 2024 BILIRUBIN NEHA Negative Normal [facility] Comment on above: Performed By: #### N UM #### [facility] ([id number]) [address] [place] [address] 61724 BLOOD/HGB NEHA Negative Normal [facility] Comment on above: Performed By: #### N UM #### [facility] ([id number]) [address] [place] [address] 87404 GLUCOSE NEHA Negative Normal [facility] Comment on above: Performed By: #### N UM #### [facility] ([id number]) [address] [place] [address] 84601 KETONES NEHA Negative Normal NEG [facility] Comment on above: Performed By: #### N UM #### [facility] ([id number]) [address] [place] [address] 75914 LEUKOCYTE ESTERASE NEHA Negative Normal [facility] Comment on above: Performed By: #### N UM #### [facility] ([id number]) [address] [place] [address] 44285 NITRITE NEHA Negative Normal NEG [facility] Comment on above: Performed By: #### N UM #### [facility] ([id number]) [address] [place] [address] 32855 PH NEHA 6.5 Normal 5.0-8.5 [facility] Comment on above: Performed By: #### N UM #### [facility] ([id number]) [address] [place] [address] 36307 PROTEIN NEHA Negative Normal NEG [facility] Comment on above: Performed By: #### N UM #### [facility] ([id number]) [address] [place] [address] 82765 SPECIFIC GRAVITY NEHA >=1.030 Normal 1.003-1.035 [facility] Comment on above: Performed By: #### N UM #### [facility] ([id number]) [address] [place] [address] 37048 UROBILINOGEN NEHA 0.2 eu/dL Normal <1.1 [facility] Comment on above: Performed By: #### N UM #### [facility] ([id number]) [address] [place] [address] 92825 US PELVIC WITH TRANSVAGINAL AND DUPLEXon 05-01-2024 [...] Alves MD on 05/01/2024 1:36 PM Normal [facility] VAGINITIS PANEL PCRon 2024 VAGINITIS PANEL PCR [...] clinical presentation to determine patient diagnosis. Normal [facility] Comment on above: Performed By: #### V PPCR #### [facility] ([id number]) [address], [address] [place] [address] Coding Summaryon 04-29-2024 Coding Summary HTMLBase 64 IuqkoqrsIVb2bCq+PGhlY WQ+VQ5YPTJzZ26rsDWcqA 7dY5ZHQHzQGlwxDTAMXDw YZeMzyiEvVW3erDWyFCPz IC8+LC8qOFIqQylxlTKub 4I0oTY6A04bix7bTHizdH V1QCJxDcTbytthp5stlEy 6IDcuNmluOyBt HKXvbR80EMQ9iF02Js31h YYmiRGei4zkqEy7RqQnCT QeUIX7cMrdQMpxx2TgDQT vV35dgOBfq6V8 NYSulCayhFMbBfWucEF1c M2wSFchgdcvo2ydszjaVb j9sx42sZTch6Y5sIP4T3Z zmqJ5DKTluGBo TjtfpRDRjX5rryudp1qar xsfBzFuZJHaYVm6OIk3HP CrpLqiGqQlDS48YJG2FKU tewCxS7DmBSIs yBzqCzA0j9V5Kb7OT4LWI yetG1EFWPTCHDchoGS+PC 28fr79M0NbOkspCnn1VUR kATV0gXD7yA3a VBQsRCaux2J5uNF8F5Nyk cSeps1sz9lsPMJqLNvyI2 5ayHLab7Z5RMBmxGO9OQL mrVluYtOtdK78 Oyc+WJKprEvno7JiUzlsr 1rjo3yrkNn0LfxyDCUckg AmsKyvFZL8e8PtIy6jDLN hvZP4wUJ4sZ7p XlNeNxT0DWsnJ758IvOoo CPjIyntH98oS2JqvQQ+PH XsKdv1DISquNobZG8fZ7S hZGRpbmctbGVm hJooHS9oVQZgecfwWQKet N3lUFEzB4c5KsGpCeR5IK puZ0RuDDEtfmcbLk74nD4 eOjAvObH1NOkc I8LxhdU6IAHfcKHqTUxvV EN9C36zd0P6PITrFUYxZV G8vWH3iA5nkPlpqkwzeOJ mdDsgdmVydGlj QMriHOgpQ175PIMlaLauK kNvZGluZyBEYXRlOiAgMD EvMjIvMjAyNTwvdGQ+PHR tAWJ7eVlzSHLs oHLjGNqqJp6ibReyiXorL O3mGNDihirhGGHcjP0jOK LzaLHfeWnmXQ6mNTXsgoy if864UlOnEDA8 OPJzdOBgW0IouG8nYpCjJ JMwSTCvN7CwzZVqURwrE0 83KUwiMaD9KDOqiyVjK5W sLWFsaWduOiB0 l4K4Yc6Pf9BjxtmyO5Vpm GQqWrJfBmqnXPj0G3QpIt wvdHI+UG13DSRbNU30JTq 6FHT7mKbzUIgs IHVlO2WsoW5tDoLtOVIcD GRkOyc+PHRhYmxlIHdpZH RoPScxMDAlJyBzdHlsZT0 gUk7rCUHxNOCy uCarnHQiImNxd8dmDKMaX NvsPP7ckQxuQ4RhxXT4DD Qxn8b6Tu86S36wR1HcpKL +EZQdlPM3cVW1 dL7aHyGnEtN1WMvwR731U iGyhTIpMyhjl9jim5fchG b3MqX7UALgyjJlaMenELO 4x5RaJm05S24n IHdpZHRoPSIxNSUiIHZhb Zuncr0vuM3cAz4+PGNvbC E8xLP9yE7bFlKoBmL8MGt nA919LdFdlOLt Mlbhg0hnd9agfVr3RvDyD TQojlXyyRklSYK5i7PaBa 48D1HwgJnoz6PiJoq3xz3 3cEIbq0Y6jED5 R9GvDDEhatdwlLXraUrpE O8yCLIiwwhtMNQtuY2yFW RvA5e1PxGoFnH2YDugK8Y yuyI5LPHgdFZq NULrxAMZgT4iuftvn8slv uglZkLfXIRmLIb4LYd7MZ MrpRguPnXkBJW1CaR8TRL 6iSOwrS3mrQln cokbyD5wEkd+LWX2lLBzn MNJLF1jRewslNO+PHRkIH Q3uQroXRqhYZWeuV6pKSV mX3u2IjBdFuW7 TQblP7XzirO0JAGmsUSsG ERwmWSVfY3ffkkfi3dfqd ohFrPtMROoTNs5FFh1GNK saWduOiBsZWZ0 XmH5AXQ9pTUsvQ8xbRsyl vrgtE1eAmz+QmlydGggRG V4IFa4R8DaBtj3VDZsrGz dKM8mjQMhUDrf Ml8oaRxzyZgnSU1hGVVns obzu671ChKxl3ttPULetV VkSWvbWTV6R82sy2Y1ZDU yKDGfZIV0hJG5 lL7jcRbdhbrpjVXffVlhe zHasRlhIJqoTGfjJ944YO BbgUhbQaCeUQj3M5CsKjq 2YVSfyHduDI2t iRHtZFewWp0myZnpaXneU A6nBOMmiouyk003PeKtr8 msFVKbsIBvHShzLND4Y87 nb5N8DSOjKBEi VMQ4dCJ2fV7glQklmlhwe GVmdDsgdmVydGljYWwtYW woR734VXNxwKqcDvQbdDj 7L5IyKsq1FQQl aMucPH6eaYZuNKguBn5ck KkhwTnlEP5aBABxzvfhy1 72PjYcb2bfZWUohXXhMBn wVJT9M78rm0Q3 HLNvUMTmXZZ5cWO1qP0an GlnbjogbGVmdDsgdmVydG ftFUjiIHwtD930UFGgoBp nPlBhdGllbnQg ELuiANs1Y0PqTtggmSS+P O09MAPuID52tERnyPBpi9 ldeCt0OyAgMFNyWKA8nWz iXNxoj9YvCQIk P21ewCAtt5E3YQEidWigo EQwIeRzpVQ8xG1eADmlbu nuv9eyjtziQghdx6sbnl7 8bE35D00gHAwj ZHRoPSIzMCUiIHZhbGlnb p0cfC9eHw8+MNMcaAH8cD M4qT7fSPZsWjE1FRdhS70 9InRvcCIvPjxj b1rcm0ufpAg9VsP2ZLXcc aHziBqjKOO7o8BqIn32L1 9sIHdpZHRoPSIyMCUiIHZ inTbegg4huW3x Ii8+JMOajFJ9kLU8vE2dO fGeQtH5TOmfY107TyWikQ KpPaxbW82xA4SpxYD+PHR vIyl1BQFphUdk AE7ezKHnEGdkFa2oSWH8U iItNlRpISqgN9WjSTEyes wgqutblAL0JIXnYYBanX5 2Au7mrWixSTOk wGNGfK6adbtwl7zdemwsY bRsPHWeVAr2BFf7MNJmzC nnAhOjUIP8NhW7WBX3yZN msS7ogDyczxka tJ2dK9OjWFStspmgMa56y D3oVxIzVwH8FIcsZlr+R0 kKNhSSOUkzF5yVXOSHUIk GJI1XEFmnpTD+ EZHgCBS4cQftGResQZCqj B8wLLDcX0m4PdEdFqB9KC eyL6PuVGRjikkaXv30bI9 aAjTkJtE5WQes U5YrzuO8HHQlhJRzEFgyR PY5S02zo0H7DPWsYRGeSV X2gPY9kJ7biBdlqjqncXU mdDsgdmVydGlj PAnnVZvhS475VVWjwYhjK nG9ViChCpNbDLL2W0DlKw k7ZGOalDmwDH4tyLSxNCr rGb6lwPxblLtw FQ7kRMAlshmnQOBznI2lV KZhqBIyiStyIR5xGLHsqg vdm991QnEoYBD1LAXtoCR xZ7XezL7qYiEh LDUdXYEwQ1FshEHrDTzrP 500HFhgNbL1MVGyqiJsA2 GeQXWqfDurMdT7w3O9Bz6 yMiBZZWFyczwv dGQ+LIBfDJD6zFezEKgpE HQfzY2jVQKsB3j8EmBcVv R8WUenK0YhXZHpowisIz2 8zZ7qDiGyTmH6 IFwdZ4LaqqA2TTZuvBDeK GsgNAI6Y57co6W1URBdJN OmRFD6xBZ6iS1qtOswjov gbGVmdDsgdmVy lSryLRihBNstM803WLUwe DsnPkZFTUFMRTwvdGQ+PH YcXHQ0iOxcFPreORHnkR8 nUXXaL3b0AlXo MvX8JBvhC6QoCETbnesgG d14sP5kHcHuMlG9LIdoW9 CragC7XGMxrZQgSColKOK 6L30yj2V7PFMi KABvARQ0iLT1uA7mnNdyt jogbGVmdDsgdmVydGljYW ngWRgeZ651BLLkhMvpUyJ cAHSuOV3zqZub dGQ+SV81qb70O1AyFuguE eh0OECrBKD4fME0cL2eTR JwJEyks2K8nIY2Z1BkveF qhz7ul4xeSGAu QOmzY87lcLQah7R5FOSbb IF1OZVtpPezRtWubY18Qj c+GTPtiJwxm6MkBnqdo0q ea0vvvEj9ExGs UZHjdrSshXnpYUF8o9VpL h17T96eQWasMVOgMFOpRC RhFHCtrWkkwv1atT9eGb3 +MJGgpHZ4aPE5 hR6vQwSmHgS7XVpuL449T vUyhLNsOgwcd6fjj1jfuF e3LdPsRCAhbpOsmPnyHHJ 4q8EjOb72N1Qz zXcxi1UpRqk3sm02wAFoa 6E9kTQ7Q8CdZYIzpgfabI NgdKrfLF0dUYDwnamuOVG wjY5bYDLyG1g9 FqVuTaL4QIvqB8ZlkyF7S CGsfGCkVYCkcEJSaR3omy sdx5ixmwjbHdImGJQpHTf 9MKk3TSQyxXku KoDoZYS9MmH1QQG5fLNmw C2obBehzuncmE7hUtj+UG f3n2mitVQwIY4mzSP2OF4 6IH83sIDjt1R8 ePQ9I9TeLZBilonqiyeet TA3DUYjQHOaaQ30Zg2lmP tiLl3oUWWuVNK6UDAukHE oX0SqgB8qTxVf PVOcBIDeG4MdjNHhAKeeV 623TIwlEvV9HCYipgHeD4 YqIKNkjNwvRzN6j1J5Rf3 FWO66QX82SI01 jGPhb8Q9fXU3R0UiEEAtr glgbdlbtVR5BHKbVTWdsZ 74Cm1eaRzjIu5kWUAnGNW 3XZEvhURaV9Ht yD7rLaPdPYPhZLTpW6Rsb JFxVRztA075EOhlLoW5DB PixyYgA0WoKIDezEfaTdT 8x1J2Vg2YFl75 WU04VL80wEOqa7E6eGW6D 8QiBQOydnxrgirdfZD5KP XlHPIvfH63Dw3mhUlhGf8 kJLEzCSM4HETl mYIuB1RykT5hWpUfZKIaK GLdG6TywRQsWKpeG598ZO vnYwA8SWXzkxRcP4UdYJD baBowOdQ1q3V5 Ip4TNBaictv2X8RmBeauy GA+CL16SLLnXL07vOAnhQ Yoj2uqfGa6ExUtZTJvSOA 4zZhmNPlej1Fc ZXI (more content not included)... Normal [facility] XR CHEST 1 VWon 04-22-2024 XR CHEST 1 VW XR CHEST 1 VW Portable chest: HISTORY: Cough and fever. The chest was obtained. Right upper lobe density is most likely represent granulomas. Lungs otherwise clear. There is no cardiac contour abnormality. No effusion or pneumothorax. IMPRESSION: No acute findings. Finalized by Yvan Oseguera MD on 04/22/2024 1:52 PM Normal [facility] ED Clinical Summaryon 2024 ED Clinical Summary [facility] - Emergency Department [address] [place], [place] [id number] ED Clinical Summary PERSON INFORMATION Name: LIA DESAI Age: 23 Years Sex: FEMALE : 2000 MRN: Acct#: Visit Reason: Body aches; Cough; FEVER, COUGH Arrival: 04/19/2024 08:50:39 Discharge: 04/19/2024 09:24:00 LOS: 000 00:34 Check In: 04/19/2024 08:50:39 Checkout:04/19/2024 09:24:00 Address: [address] [place], [place] [address] PCP: Provider, Unlisted PROVIDER INFORMATION Provider Role Assigned Unassigned Abner Harvey MD ED Provider 04/19/2024 09:05:18 Jayne Zuñiga GARMENT EXAMINER Nurse 04/19/2024 09:05:51 VITALS INFORMATION Vital Sign [...] reactions were documented.. Medications: (Selected) Prescriptions Prescribed [place] Saline Mist 0.65% nasal spray: 2 spray(s), !-Nasal, QID, for 7 day(s), 1 EA, 0 Refill(s) metroNIDAZOLE 0.75% vaginal gel with applicator: 1 jamel, Vaginal, Once, 70 gm, 0 Refill(s). Past Medical/ Family/ Social History Medical history: Resolved Disease caused by 2019 novel coronavirus ([id number]): Onset on 11/23/2020 at 20 years. Resolved. Comments: 11/23/2020 CDT 16:07 CDT - SYSTEM Problem added by Rule (IC_COVID19_AUTO_PROB CAMI) following 2019 Novel Coronavirus (CoVID-19), IMLY L from Nasopharyngeal Swab collected on 22-NOV-2020 16:44:00 EDT tested positive for COVID-19. no history ([id number]): Resolved. Contact dermatitis (86058971): Resolved. Pharyngitis ([id number]): Resolved. Cough (13066060): Resolved., Reviewed as documented in chart. Surgical history: Tonsillectomy and adenoidectomy ([id number])., Reviewed as documented in chart. Family history: [...] R (more content not included)... [facility] ED Note - Physicianon 2024 ED Note [...] reactions were documented.. Medications: (Selected) Prescriptions Prescribed [place] Saline Mist 0.65% nasal spray: 2 spray(s), !-Nasal, QID, for 7 day(s), 1 EA, 0 Refill(s) metroNIDAZOLE 0.75% vaginal gel with applicator: 1 jamel, Vaginal, Once, 70 gm, 0 Refill(s). Past Medical/ Family/ Social History Medical history: Resolved Disease caused by 2019 novel coronavirus ([id number]): Onset on 11/23/2020 at 20 years. Resolved. Comments: 11/23/2020 CDT 16:07 CDT - SYSTEM Problem added by Rule (IC_COVID19_AUTO_PROB CAMI) following 2019 Novel Coronavirus (CoVID-19), MILY L from Nasopharyngeal Swab collected on 22-NOV-2020 16:44:00 EDT tested positive for COVID-19. no history ([id number]): Resolved. Contact dermatitis (84360176): Resolved. Pharyngitis ([id number]): Resolved. Cough (32460705): Resolved., Reviewed as documented in chart. Surgical history: Tonsillectomy and adenoidectomy ([id number])., Reviewed as documented in chart. Family history: [...] clear, or (more content not included)... Normal [facility] ED Patient Summaryon 025 ED Patient Summary [facility] - Emergency Department [address] [place] [address] PATIENT DISCHARGE INSTRUCTIONS Patient Information Name: LIA DESAI Age: 23 Years Date of : 2000 Reason For Visit: Body aches; Cough; FEVER, COUGH Arrival Time: 04/19/2024 08:50:39 Primary Care Physician: Provider, Unlisted Attending Physician: Abner Harvey MD Comment: Visit Diagnosis: Diagnoses This Visit Body aches ([id number]) Cough ([id number]) Viral URI with cough (J06.9) The Pharm[facility] is open Saturday through Saturday [...] alcohol and/or drug addiction problems; contact the [facility] 29/10 Crisis Hotline -Text 6NQEW xw [phone]. If you received any narcotics, sedation, or [...] doctor. Alternatively, you may follow-up with the [facility] if you are [...] treatment you received today in the [facility] Emergency Department were for an urgent problem and are not intended as complete care. It is important for you to follow up with a doctor, nurse practitioner, or physician?s golf player assistant for ongoing care. If your symptoms [...] we can reach you if necessary. [facility] Emergency Department has provided you with a complete list of medications post discharge. Please inform your metal miner blasting/provider of your visit and for further instruction [...] Vaginal once. Refills: 0. sodium chloride nasal ([place] Saline Mist 0.65% nasal spray) 2 spray(s) [...] Respiratory Ra (more content not included)... Normal [facility] Progress Note - Nurseon 04-08 Progress Note - Nurse Patient walks to room 6. Patient is alert and oriented X 4. Patient is here for a cough, body aches, fever and sore throat since yesterday. Pt. states she tested herself for covid yesterday and had a faint positive. [Electronically Signed on: 04/19/2024 09:11 EST] July RN [Verified on: 04/19/2024 09:11 EST] Zara July DANIELLE [facility] Coding Summaryon 03-24-2024 Coding Summary HTMLBase 64 AncxtgesKWh0yPm+PGhlY WQ+KU4IHWYeC87xzFXxhY 8tN9PNKZtAWjmbEMEWNWb CMtRgdqNgVC4rgKRvPWPa IC8+IO7uAINaVtqsrUSny 5K0nBD5N78hwz1bPMvlbB E8NSGnUjGvxswun2jtxRd 6IDcuNmluOyBt IJOgmK17ASF3mK09Rt54r CAovVWfd6dvlTb2MnIsQS FrYFO0uLqbHNnnz1UpMYS eG10aeIWby4Q4 NXSiwUefvKPySpRiiXW7k Z2zTFjphrwud6kczrkuEt k8nm40eWQyr1S8tNY8E5M fhgI2EBKkoCZq WcyazLTUjB8nulbsv6srn ozkRqJkIGRkCRu4LKv2JI GpuVycBvWbWR75SAM3URW ezmPlH3TrKOPj lSotFiA2g6E4Yq1NQ3JHD qbiO9BDZYDCCWbueLX+PC 31tr74J0RxKeagVxl0IBP tHUN7hKR1tT8n RDKjWJkjd9P2hGQ5O1Qzq aMpjy9my8zwBAEwBIbcC8 3gqWOog3C8SSOsnSK2AMK wcFaoXuXfpI14 Oyc+AWTptDhmo4ZoBvbla 3dgh6oxzAn2JkgoHOGmfe CfvHofUVQ3x9CeOu9bPTK imSD1xPU7yU6e EjLmBdK9TPpqO244SeMcc LNpFkijJ90dO6IdlVR+PH QiMtk3AXDplEugHL1lY1O hZGRpbmctbGVm sZpcHV7qPVXsekzxQPHda E5dBLUjH0h9XgSdUmB0JK dcI9CyFYDynzrzZg59sK3 iYuVtTiF7GEtz K9HhcfY7VEMlgFPdVQnzM YB8H82tg2K6QFZjVEKgIT E4zWJ1hK0fwHviomvzuVQ mdDsgdmVydGlj KJmdAChyM916LHIvsUknM kNvZGluZyBEYXRlOiAgMT IvMTcvMjAyNDwvdGQ+PHR wMDP7cLjrSZQg eEPgJAqvIr9cdBozkInuD F6nBPMzjzejDFRusK1mTS YuyHXppLitKH8hUKUkbwy vq820SfJbRII0 RPUmkFHuY9SytT6lMkJyC GZpWKJrM4OnmONiESaoN9 75FAwcUsD3VBTexnHpK4O sLWFsaWduOiB0 k2A9Gt7Kp0YdbtrjE0Cgc ICgQcQsJtioPOx2G2MlWs wvdHI+SD50NGAnJQ82AGt 4SUH9bKwpBVml SMPvU6CenL3sQuNvSOQqJ GRkOyc+PHRhYmxlIHdpZH RoPScxMDAlJyBzdHlsZT0 cPu3dNUQtZQVg pSygiBFdSmFkd7igDLNmS QorXL6evClsD2LbaEY6JF Bzr4v9Vp68I32tB7KkhXM +FGRmmQD4xOE7 gN4rUfZkOeN5BFilO683O uKggPMeJvrms6uva1fljP h3JqE9LLPbotXurFbgZQO 5s6SjAn66G62b IHdpZHRoPSIxNSUiIHZhb Oliga4rhZ3tSn0+PGNvbC S0oUW1rG8qUcRcDwD9SRf gA829MbAnlSJu Pxmyu1des0mzkHe0UfZmW YWigfFpyUrmZIB8q6ZsGw 68A5MdiLidj2ShCxr4nn3 1hDMnr6H9fYV5 H0TxKFVrvbooaODtiNtpC H8qIGSbikooBNFjfV0zTN NdM3r0VpLsAqQ0YDkyO7A sgeZ5UAXqaYRm JORlxVHKwZ5skxxgy0ydx hvmYgYdZGKrPPq2ZIm7IW IflCzlAoKqDUH4TcM6SVC 6vBIxyH6znPfr fsejbB3lYqn+BTP0dPBjc KYRVL9fEnglbPX+PHRkIH D2xZauQSzrRRCitJ8bKPO wO6y8BbRtRnM2 UXvpN6OuajT7SNXkkYJzW EAmjSFOzZ0dkfkrg6paac ljKqAbKAGnAPh8GAt5OLW saWduOiBsZWZ0 KtU4JWB0zWKudQ0xiKkjq sqvuO6mMkz+QmlydGggRG X7XQj8Q5NcKoi9WCIgbBp jMD9ohPUkRXux Na9eqPumyMlnWE1eAONjy aszn395QnGgm2zgMTCttW OzNDanLKC2P04mu7O3MMT oLPSnINZ4mDC7 tS5ekVzpxlkmqEZmnQdpy zUaaRniEMvbRYtsQ167EY JljOirIcOeHZe8H2RfYpg 9OBZrpQcjKX4t eOYkCUckGb1vrOdiqAghQ Z0qKIMxfwkra130WxEbc7 sgXEKdvEEiLEnfWJL0W22 kc0H0EKCeJYXc CZC9rLT6uR0uhNjtwwbhc GVmdDsgdmVydGljYWwtYW crN709QOEayZdqEmCveVl 9V7WtKnp6KVFc eJsyTD7slJCbAQpbKb2dc VdepWlmRG1iMMGrfwhev6 21WqXbv0zaQEVcdKKdHUf uCCV2S38hd3T2 BYPhGWXtBFU0gWS7uM2fh GlnbjogbGVmdDsgdmVydG vcKGhxKEzhC384ZHRdyPs nPlBhdGllbnQg MRwtPNe7S3RhRjhmhNZ+P N61JEFvPJ04bOAtfVIcn2 quqAq6EyLyMZYeWAT7dKx wUZihw5XuBPFq O00rvNNgv5M1RGGvyHpjp NClQrSzlLO6uW6oKQuqyx mdq0gcqdvwQcerw3ssit7 6kB57M91pHDvz ZHRoPSIzMCUiIHZhbGlnb d7prO7aOo4+IDQerFJ2qL M8gI8fDNKyGyR8UCrjF49 9InRvcCIvPjxj l3nuj5rmkVe9RiC4WYDtw jGouFwtQGE3u7LkIm38T2 9sIHdpZHRoPSIyMCUiIHZ chJiyeu3agM6z Ii8+ZLAjlSU3qRS0jO5mA zXvWdD9YQyjZ151DnQtoM ClBouxT47jB4HchMK+PHR yDqr6DVLluXvo XK0lkMUbRVrzCi8zIVX0R uOmMrUbTQulX6EpTZNage chhiwxaIV9LHVpMWLwiV9 7Uf4puXssFSHw kXAAdD5hswajn5mhzxyvD pQjXWIeILq8MRa1ROMdbV szWlNgUNF0JcG2RRW0jJJ kvJ3duRxmncia xY9fQ4GrQZSarbltWg92s U3qGqEoFkU2HPtgAvl+R0 oPZiFDPEqjB8eJIVWTXXl KUB1ZZAegqKX+ PABqACO0oNeqJMybUYQsi G3nYZIoR1p9AiFpAoK3RV wxW4WmXRDkldolAz81mG9 nFuKgTsK1BMwc W6RqxcL1WEFevFWhVQzcQ KV1K93xn8R7FHPiVMBuBZ V2eVT1vB2kjWfuvonfoLS mdDsgdmVydGlj OThoZWthW715EBHqtNikO wK7WeBrVuCfGGZ2S9PuId v7YMViaTifEP7owQMgTUl pUd6uxFotaYmp AD9vGUJhwooeYTYihD2yH IPqxEKqjWpqNQ9eTXEzbv cfv323GnPjYEQ4EUYxoWR gX4AwlW7vBlGt SJHdCEIzP9HbqSBkUZifC 043HBsfOeN2RNMmosEtG9 VmORKavPofDjN4b4V1Rm0 yMiBZZWFyczwv dGQ+KPKgEUW3eHuvNLlhG QFutF9vANHhT0y7YzDxKc G4UKjxI1AhIDXlrighHa0 9rX9kUeGcYeE7 PTllR0FsvtE8POFkgRAhJ BtuKAR2U93sk3W8OSIoYD SpDFB5oVY7lX6vxSgmykh gbGVmdDsgdmVy dKnhVVahBSraV711BCCuc DsnPkZFTUFMRTwvdGQ+PH OkVZK4iJogQRswLVXyrS3 mNRIvA6s2XmUk CkK6CGapY3AjZBYsgjhgO k62eY6cMbNiUbK1XRbaS7 RqyjC5PYBxvHZrJXfwTAT 9N11ug7G9BRRd BOGdYSG5nXM2fF2itAawr jogbGVmdDsgdmVydGljYW reTRvsD739RAQmvRptZtO iSUObYR1gwRpc dGQ+WC65po07V9FbWrzuH gm1JUPsZEI4cXK3cI0aUO MfBPzjf0P0yMY1G1EfioZ tpj6kv0vuEASn FBcnA59jhABld6B6VDDfw VM6HYJulAmaFkNqsY54Uf c+NOQvmEwty9BrSeujy5g vg8npcUy0KoUr XANutjCdyGznVAH9k2MnT b91F52qMVguMLTfCKWnUP YsSNNloJbikf4jcZ1lJp6 +TRIrdJN1fUG5 qY0sUiGcBkH0DQniV678X iQmeOElEntya2ety8ptdL u4BeVdRGVhwrDjuZctPHV 6e2FtMe20C9Uk cKioi7RmXun7ih56kWXsb 9E1oBL5Y3BlFMOyavdwhJ AjdPncEF4aBXTlezjkRZV xoZ7yXCJhR5x5 VnJxUeO9EYikR6OwmsO6J KYssSNcXVTnbDHIhU7uxn kpy2eflrzzTdZjRGDtVIe 7AJo1MCXqdBim WfSrHNX3PiN0NUT8fLVzo X7ctCpthybyhY8nUfs+UG y5u5vyaKRlZA6ijNQ3VT0 4OK56tFFro4N6 qXE8B1YiGAFyemnnhrmal IZ5WHQuWOEejG14Uz5xdB qiFr9vVSXzRFQ8VIVwoHY tS5ZwdM5pCvVj APUjKYLtV1JixAYiUUbcO 884BZvwFgP1THVuxqVpU2 DcJMFwkFbwDfV5i5L6Bz8 IXX99OM44YT78 cXOsg0X6mJM5I7KjFRDte rjlciqbfSX0OHBkSLIavZ 91Cx2alIxtQp3hRVDpRVZ 5NWAoqKUlC7Wx dD5xOeGyCHAgDMRnP5Nlp GZgYXstL930MVzeIvE1FE DvdyKlB2WfPBGioYsnRpR 6g8O8Of0VZd11 HS24OH71uDZoh3K5oQA8K 5WzJRXktptsapmbyQN0NX TeKVUtaR37Cs7ikRyqQj4 kDZEuEBT1GBBl pYHeQ0HyrU2lAmKvNOBxK YWaE2CuyAFkLYnqG217CZ ymJtI4MIUdnwZcO3AoBKS imWpdWzF3i6Y2 Hx9PSPftwou3B0JuRkpdb GA+RV79IOVeCM82bUPhjA Bxq9gsyQe9MfAdYIXdYYU 2cQxjDCkah9Hn ZXI (more content not included)... Normal [facility] .Auto Diff 03-20-2024 Auto Sabine % 8 % Normal 04-19 [facility] Comment on above: Performed By: #### 1 [id number], [id number], 7076850, [id number] #### [facility] (DEFAULT) [address] [place] [address] 59098 Baso Abs# 0.1 x10 Normal 0.0-0.2 [facility] Comment on above: Performed By: #### 1 [id number], [id number], 7078808, 1107158 #### [facility] (DEFAULT) [address] [place] [address] 17899 Basophils/100 WBC (Bld) 1.0 % Normal 0.2-2.0 [facility] Comment on above: Performed By: #### 1 6173079, [id number], 6300527, 0905069 #### [facility] (DEFAULT) [address] [place] [address] 03080 Eos Abs# 0.1 x10 Normal 0.0-0.4 [facility] Comment on above: Performed By: #### 1 7128466, [id number], 4738754, 3349395 #### [facility] (DEFAULT) [address] [place] [address] 87494 Eosinophils/100 WBC (Bld) 0.9 % Normal 0.9-4.0 [facility] Comment on above: Performed By: #### 1 2951265, [id number], 5767392, 3034288 #### [facility] (DEFAULT) [address] [place] [address] 57830 Lymph Abs# 2.5 x10 Normal 1.3-2.9 [facility] Comment on above: Performed By: #### 1 8370149, [id number], 0210040, 6419539 #### [facility] (DEFAULT) [address] [place] [address] 44108 Lymphocytes/100 WBC (Bld) 32 % Normal 14-48 [facility] Comment on above: Performed By: #### 1 6321384, [id number], 7688300, 3841331 #### [facility] (DEFAULT) [address] [place] [address] 77799 Sabine Abs# 0.6 x10 Normal 0.0-0.8 [facility] Comment on above: Performed By: #### 1 3981529, [id number], 8933332, 9529231 #### [facility] (DEFAULT) [address] [place] [address] 38731 Neut Abs# 4.5 x10 Normal 1.5-9.2 [facility] Comment on above: Performed By: #### 1 7655901, [id number], 1110418, 8587167 #### [facility] (DEFAULT) [address] [place] [address] 22528 Neutrophils/100 WBC (Bld) 58 % Normal 44-88 [facility] Comment on above: Performed By: #### 1 7516506, [id number], 9812759, 0742524 #### [facility] (DEFAULT) [address] [place] [address] 66350 CBC w/ Auto Diffon 4 Erythrocyte distribution width (RBC) [Ratio] 15.2 % High 11.5-15.0 [facility] Comment on above: Performed By: #### 1 4204040, [id number], 2264608, 9159269 #### [facility] (DEFAULT) [address] [place] [address] 29375 Hematocrit (Bld) [Volume fraction] 39.9 % Normal 33.7-40.4 [facility] Comment on above: Performed By: #### 1 9413895, 3657180099, 2436208, 3932997 #### [facility] (DEFAULT) [address] [place] [address] 50605 Hemoglobin (Bld) [Mass/Vol] 13.3 g/dL Normal 11.3-15.9 [facility] Comment on above: Performed By: #### 1 [id number], [id number], 7154790, 3790330 #### [facility] (DEFAULT) [address] [place] [address] Man Diff? Auto Invalid Interpretation Code [facility] Comment on above: Performed By: #### 1 [id number], [id number], 6421387, 7762415 #### [facility] (DEFAULT) [address] [place] [address] MCH (RBC) [Entitic mass] 27 pg Normal 24-34 [facility] Comment on above: Performed By: #### 1 7789981, [id number], 8326504, 7339152 #### [facility] (DEFAULT) [address] [place] [address] MCHC (RBC) [Mass/Vol] 33 g/dL Normal 26-37 [facility] Comment on above: Performed By: #### 1 2566347, [id number], 6237093, 2958602 #### [facility] (DEFAULT) [address] [place] [address] MCV (RBC) [Entitic vol] 81 fL Normal 81-100 [facility] Comment on above: Performed By: #### 1 1375632, [id number], 3853161, 9892258 #### [facility] (DEFAULT) [address] [place] [address] Platelet 350 x10 Normal 138-427 [facility] Comment on above: Performed By: #### 1 6972498, [id number], 8595635, 6235901 #### [facility] (DEFAULT) [address] [place] [address] Platelet mean volume (Bld) [Entitic vol] 8.4 fL Normal 6.3-10.2 [facility] Comment on above: Performed By: #### 1 6903581, [id number], 9888623, 0215172 #### [facility] (DEFAULT) [address] [place] [address] RBC 4.90 x10 Normal 3.70-5.30 [facility] Comment on above: Performed By: #### 1 3625936, [id number], 8406059, 3985205 #### [facility] (DEFAULT) [address] [place], [place] [address] WBC 7.7 x10 Normal 3.5-10.5 [facility] Comment on above: Performed By: #### 1 2252182, 4462483214, 8598755, 7643915 #### [facility] (DEFAULT) [address] [place] [address] CMP Standardon 03-20-2024 eGFR Non AA >60 Invalid Interpretation Code [facility] Comment on above: Performed By: #### 1 3593302, [id number], 2587583, 7958162 #### [facility] (DEFAULT) [address] [place] [address] eGFR AA >60 Invalid Interpretation Code [facility] Comment on above: Performed By: #### 1 [id number], [id number], 5178410, 0692876 #### [facility] (DEFAULT) [address] [place] [address] Albumin [Mass/Vol] 3.9 g/dL Normal 3.5-5.0 [facility] Comment on above: Performed By: #### 1 9297236, [id number], 5608442, 8046695 #### [facility] (DEFAULT) [address] [place] [address] Albumin/Globulin [Mass ratio] 1.0 {ratio} Low 1.4-2.6 [facility] Comment on above: Performed By: #### 1 5260181, [id number], 3354569, 7150872 #### [facility] (DEFAULT) [address] [place] [address] Alk Phos 111 IU/L High 32-91 [facility] Comment on above: Performed By: #### 1 4953882, [id number], 0925513, 8546647 #### [facility] (DEFAULT) [address] [place] [address] ALT [Catalytic activity/Vol] 24.0 U/L Normal 14.0-54.0 [facility] Comment on above: Performed By: #### 1 3422350, 9551524335, 3415763, 2175230 #### [facility] (DEFAULT) [address] [place] [address] AST [Catalytic activity/Vol] 22 U/L Normal 15-41 [facility] Comment on above: Performed By: #### 1 6232426, [id number], 8532290, 7127044 #### [facility] (DEFAULT) [address] [place] [address] Bili Total 0.6 mg/dL Normal 0.3-1.2 [facility] Comment on above: Performed By: #### 1 5641262, 4415937957, 5895651, 9041259 #### [facility] (DEFAULT) [address] [place] [address] Creatinine [Mass/Vol] 0.70 mg/dL Normal 0.60-1.30 [facility] Comment on above: Performed By: #### 1 3773023, [id number], 1593031, 7337145 #### [facility] (DEFAULT) [address] [place] [address] Globulin (S) [Mass/Vol] 3.6 g/dL Normal 1.5-4.3 [facility] Comment on above: Performed By: #### 1 5094740, 1663010940, 0416543, 2694120 #### [facility] (DEFAULT) [address] [place] [address] Osmolality 272 mOsm/L Invalid Interpretation Code [facility] Comment on above: Performed By: #### 1 3985874, [id number], 7447184, 3010378 #### [facility] (DEFAULT) [address] [place] [address] Protein [Mass/Vol] 7.5 g/dL Normal 6.5-8.1 [facility] Comment on above: Performed By: #### 1 4605717, 7221125207, 2293205, 3399158 #### [facility] (DEFAULT) [address] [place] [address] 03881 Urea nitrogen [Mass/Vol] 14 mg/dL Normal 8-26 [facility] Comment on above: Performed By: #### 1 5536889, 7705401679, 0389694, 9393508 #### [facility] (DEFAULT) [address] [place] [address] 68498 Urea nitrogen/Creatinine [Mass ratio] 20.0 mg/mg High 4.6-16.2 [facility] Comment on above: Performed By: #### 1 8204324, 4792806055, 9316982, 6499472 #### [facility] (DEFAULT) [address] [place] [address] 49141 Anion gap [Moles/Vol] 14.2 mmol/L Normal 5.0-19.0 [facility] Comment on above: Performed By: #### 1 4046689, 0749711416, 6348994, 5195847 #### [facility] (DEFAULT) [address] [place] [address] 79172 Calcium [Mass/Vol] 8.7 mg/dL Low 8.9-10.3 [facility] Comment on above: Performed By: #### 1 4055927, 3983895160, 9830874, 4887855 #### [facility] (DEFAULT) [address] [place] [address] 97037 Chloride [Moles/Vol] 104 mmol/L Normal 101-111 [facility] Comment on above: Performed By: #### 1 7508674, 3001446287, 2878366, 8162626 #### [facility] (DEFAULT) [address] [place] [address] 92743 CO2 [Moles/Vol] 22 mmol/L Normal 21-32 [facility] Comment on above: Performed By: #### 1 1565337, 3863807819, 7924093, 5598427 #### [facility] (DEFAULT) [address] [place] [address] 18435 Glucose [Mass/Vol] 96.0 mg/dL Normal 74.0-118.0 [facility] Comment on above: Performed By: #### 1 0504548, 0544023152, 3968198, 2237417 #### [facility] (DEFAULT) [address] [place] [address] 22888 Potassium [Moles/Vol] 4.2 mmol/L Normal 3.6-5.1 [facility] Comment on above: Performed By: #### 1 5362328, 4953988760, 8898631, 2681184 #### [facility] (DEFAULT) [address] [place] [address] Sodium [Moles/Vol] 136.0 mmol/L Normal 136.0-144.0 [facility] Comment on above: Performed By: #### 1 1860387, [id number], 8463703, 9854234 #### [facility] (DEFAULT) [address] [place] [address] Abdomen/Pelvis w/o Contra ston 03-20-2024 CT [...] 03/20/24 9:36 am Technologist: JEN PATEL Normal [facility] ED Clinical Summaryon 2023 ED Clinical Summary [facility] - Emergency Department [address] [place] [address] ED Clinical Summary PERSON INFORMATION Name: LIA DESAI Age: 23 Years Sex: FEMALE : 2000 MRN: Acct#: Visit Reason: Back pain; LOW BACK PAIN Arrival: 03/20/2024 06:28:58 Discharge: 03/20/2024 09:56:00 LOS: 000 03:28 Check In: 03/20/2024 06:28:58 Checkout:03/20/2024 09:56:00 Address: [address] [place] [address] PCP: Provider, Unlisted PROVIDER INFORMATION Provider Role Assigned Unassigned Oneil Littlejohn DO ED Provider 03/20/2024 06:30:59 Sudha Virgen GARMENT EXAMINER Nurse 03/20/2024 07:13:25 Joelle Nava GARMENT EXAMINER Nurse 03/20/2024 07:40:00 Abner Harvey MD ED [...] Impression and Plan Diagnosis Back pain (PNED [id number], Reason For Visit, Emergency medicine, Medical) Left flank pain ([id number] R10.9, Discharge, Medical) Plan Disposition: Patient care transitioned to: Time: 03/20/2024 08:00:00, Abner Harvey MD, Change of shift.. DISCHARGE INFORMATION: Discharge Disposition: Home Discharge Location: Home PATIENT EDUCATION INFORMATION Instructions: Bacterial Vaginosis, [id number]; Acute Back Pain, Adult Follow-Up: With: Address: When: Follow up with primary care provider Within 3 to 5 days Comments: Reviewed discharge care instruction. Continue with therapy as outlined by Dr. Harvey. Take your medication as (more content not included)... Normal [facility] ED Note - Physicianon 2023 [...] reactions were documented.. Medications: (Selected) Prescriptions Prescribed [place] Saline Mist 0.65% nasal spray: 2 spray(s), !-Nasal, QID, for 7 day(s), 1 EA, 0 Refill(s). Past Medical/ Family/ Social History Medical history: Resolved Disease caused by 2019 novel coronavirus ([id number]): Onset on 11/23/2020 at 20 years. Resolved. Comments: 11/23/2020 CDT 16:07 CDT - SYSTEM Problem added by Rule (IC_COVID19_AUTO_PROB CAMI) following 2019 Novel Coronavirus (CoVID-19), MILY L from Nasopharyngeal Swab collected on 22-NOV-2020 16:44:00 EDT tested positive for COVID-19. no history ([id number]): Resolved. Contact dermatitis (22587513): Resolved. Pharyngitis (3020679721): Resolved. Cough (42510828): Resolved.. Surgical history: Tonsillectomy and adenoidectomy (525700902).. Family history: No family history items have [...] 71 bpm (more content not included)... Normal [facility] ED Note - Physician Patient: LIA DESAI [...] Impression and Plan Diagnosis Back pain (PNED [id number], Reason For Visit, Emergency medicine, Medical) Left flank pain (AOB10-LH R10.9, Discharge, Medical) Plan Disposition: Patient care transitioned to: Time: 03/20/2024 08:00:00, Abner Harvey MD, Change of shift.. [Electronically Signed on: 03/20/2024 07:33 EST] Oneil Littlejohn DO [Verified on: 03/20/2024 07:33 EST] Oneil Littlejohn DO [facility] ED Note-Nursingon 03-20-2024 ED Note-Nursing PT. C/O back pain that started throughout the night and into this morning. PT. states that she woke up around 0545. Pt. does have urinary frequency. Pt. rates pain 7/10. Pt. is A&OX . PT. has a steady gait. [facility] ED Patient Summaryon 024 ED Patient Summary [facility] - Emergency Department [address] [place], [place] [id number] PATIENT DISCHARGE INSTRUCTIONS Patient Information Name: LIA DESAI Age: 23 Years Date of : 2000 Reason For Visit: Back pain; LOW BACK PAIN Arrival Time: 03/20/2024 06:28:58 Primary Care Physician: Provider, Unlisted Attending Physician: Omley, Oneil H DO Comment: Visit Diagnosis: Diagnoses This Visit Acute abdominal pain in left flank (R10.9) Acute left-sided back pain (M54.9) Back pain ([id number]) Bacterial vaginosis (N76.0) Left flank pain (R10.9) Other specified bacterial agents as the cause of diseases classified elsewhere (B96.89) The Pharmacy at [facility] is open Saturday through Saturday [...] alcohol and/or drug addiction problems; contact the [facility] 29/10 Crisis Hotline -Mkth 4JRCJ qk [phone]. If you received any narcotics, sedation, or [...] treatment you received today in the [facility] Emergency Department were for an urgent problem and are not intended as complete care. It is important for you to follow up with a doctor, nurse practitioner, or physician?s golf player assistant for ongoing care. If your symptoms [...] we can reach you if necessary. [facility] Emergency Department has provided you with a complete list of medications post discharge. Please inform your metal miner blasting/provider of your visit and for further instruction on these medications. Any specific questions regarding your chronic medications and dosages should be discussed with your primary care physician(s) and/or pharmacist. New Medications [id number], [address], [place] [id number], [phone] metroNIDAZOLE topical (metroNIDAZOLE 0.75% vaginal gel with applicator) 1 jamel Vaginal once. Refills: 0. Additional medications on your home medication list not specifically addressed. Please contact the ordering physician if you have questions about these medications. sodium chloride nasal ([place] Saline Mist 0.65% nasal spray) 2 spray(s) [...] Vaginosis (Inser (more content not included)... Normal [facility] Lipaseon 03-20-2024 Lipase Level 27.0 IU/L Normal 22.0-51.0 [facility] Comment on above: Performed By: #### 1 [id number], [id number], [id number] #### [facility] (DEFAULT) [address] [place] [id number] Test Urine U Preg Negative [facility] Comment on above: Performed By: #### 5 [id number], [id number], [id number], [id number] ####[facility] (DEFAULT)[address] [place] [address] U Preg Internal Control Pass [facility] Comment on above: Performed By: #### 5 [id number], [id number], [id number], [id number] ####[facility] (DEFAULT)[address] [place] [address]205 Triage Panel 03-20-2024 Triage Internal Control Pass [facility] Comment on above: Performed By: #### 5 [id number], [id number], [id number], [id number] ####[facility] (DEFAULT)[address] [place] [address]28 U Amph Scr Negative [facility] Comment on above: Performed By: #### 5 [id number], [id number], [id number], [id number] ####[facility] (DEFAULT)[address] [place] [address] 44429 U Deirdre Scr Negative [facility] Comment on above: Performed By: #### 5 [id number], [id number], [id number], [id number] ####[facility] (DEFAULT)[address] [place] [address] 52793 U Benzodia Scr Negative [facility] Comment on above: Performed By: #### 5 [id number], [id number], [id number], [id number] ####[facility] (DEFAULT)[address] [place] [address] 51788 U Cannab Scrn Positive [facility] Comment on above: Performed By: #### 5 [id number], [id number], [id number], [id number] ####[facility] (DEFAULT)[address] [place] [address] 59116 U Cocaine Scr Negative [facility] Comment on above: Performed By: #### 5 [id number], [id number], [id number], [id number] ####[facility] (DEFAULT)[address] [place] [address] 29083 U Methadone Scr Negative [facility] Comment on above: Performed By: #### 5 [id number], [id number], [id number], [id number] ####[facility] (DEFAULT)[address] [place] [address]64 U Methamp Scrn Negative [facility] Comment on above: Performed By: #### 5 [id number], [id number], [id number], [id number] ####[facility] (DEFAULT)[address] [place] [address]444 U Opiate Scr Negative [facility] Comment on above: Performed By: #### 5 [id number], [id number], [id number], [id number] ####[facility] (DEFAULT)[address] [place] [address] 46112 U Oxycod Scr Negative [facility] Comment on above: Performed By: #### 5 [id number], [id number], [id number], [id number] ####[facility] (DEFAULT)[address] [place] [address] 53803 U Phencyclidine Scr Negative [facility] Comment on above: Performed By: #### 5 [id number], [id number], [id number], [id number] ####[facility] (DEFAULT)[address] [place] [address] 78782 U Tricyclic Antidepress Scr Negative [facility] Comment on above: Result Comment: Resu lts [...] PPX Propoxyphene (Norpropoxyphene): 300 ng/mL THC Cannabinoids (88-zln-8-carboxy- -THC): 50 ng/mL TCA Tricyclic-Antidepressants (Desipramine): 300 ng/mL Performed By: #### 5 [id number], [id number], [id number], [id number] ####[facility] (DEFAULT)[address] [place] [address] UA Vktsp2cc 03-20-2024 UA Bacteria Rare [facility] Comment on above: Order Comment: Urina lysis Microscopic order added on by [employer] Expert Rules system. Performed By: #### 5 [id number], [id number], [id number], [id number] ####[facility] (DEFAULT)[address] [place] [address] UA Comment. Clue Cells Seen [facility] Comment on above: Order Comment: Urina lysis Microscopic order added on by [employer] Rules system. Performed By: #### 5 [id number], [id number], [id number], [id number] ####[facility] (DEFAULT)[address] [place] [address] UA Mucous Trace [facility] Comment on above: Order Comment: Urina lysis Microscopic order added on by [employer] Rules system. Performed By: #### 5 [id number], [id number], [id number], [id number] ####[facility] (DEFAULT)[address] [place] [address] UA RBC >50 Normal [facility] Comment on above: Order Comment: Urina lysis Microscopic order added on by [employer] Rules system. Performed By: #### 5 [id number], [id number], [id number], [id number] ####[facility] (DEFAULT)[address] [place] [address] UA Squam Epi Moderate [facility] Comment on above: Order Comment: Urina lysis Microscopic order added on by [employer] Rules system. Performed By: #### 5 [id number], [id number], [id number], [id number] ####[facility] (DEFAULT)[address] [place] [address] UA WBC 5-10 Normal [facility] Comment on above: Order Comment: Urina lysis Microscopic order added on by [employer] Rules system. Performed By: #### 5 [id number], [id number], [id number], [id number] ####[facility] (DEFAULT)[address] [place] [address] UA w Culture if Ind Standard on 03-20-2024 Color (U) Yellow [facility] Comment on above: Performed By: #### 5 [id number], [id number], [id number], [id number] ####[facility] (DEFAULT)[address] [place] [address] Culture? Indicated Invalid Interpretation Code [facility] Comment on above: Result Comment: Resu lt created by rule GL_MAGR_ADD_UA_CULT Result created by rule GL_MAGR_ADD_UA_CULT Result created by rule GL_MAGR_ADD_UA_CULT1 Result created by rule GL_MAGR_ADD_UA_CULT Performed By: #### 5 [id number], [id number], [id number], [id number] ####[facility] (DEFAULT)[address] [place] [address] Glucose (U) [Mass/Vol] Negative [facility] Comment on above: Performed By: #### 5 [id number], [id number], [id number], [id number] ####[facility] (DEFAULT)[address] [place] [address] Ketones Ql (U) Negative [facility] Comment on above: Performed By: #### 5 [id number], [id number], [id number], [id number] ####[facility] (DEFAULT)[address] [place] [address] Micro? Indicated Invalid Interpretation Code [facility] Comment on above: Result Comment: Resu lt created by rule GL_MAGR_ADD_UA_MICRO Performed By: #### 5 [id number], [id number], [id number], [id number] ####[facility] (DEFAULT)[address] [place] [address] 14831 UA Bilirubin SMALL Abnormal [facility] Comment on above: Performed By: #### 5 [id number], [id number], [id number], [id number] ####[facility] (DEFAULT)[address] [place] [address] 714[address] UA Blood LARGE Abnormal NEGATIVE [facility] Comment on above: Performed By: #### 5 [id number], [id number], [id number], [id number] ####[facility] (DEFAULT)[address] [place] [address] 69946 UA Clarity SL CLOUDY Abnormal CLEAR [facility] Comment on above: Performed By: #### 5 [id number], [id number], [id number], [id number] ####[facility] (DEFAULT)[address] [place] [address] 83198 UA Leuk Est Negative Normal NEGATIVE [facility] Comment on above: Performed By: #### 5 [id number], [id number], [id number], [id number] ####[facility] (DEFAULT)[address] [place] [address] 60641 UA Nitrite Negative Normal NEGATIVE [facility] Comment on above: Performed By: #### 5 [id number], [id number], [id number], [id number] ####[facility] (DEFAULT)[address] [place] [address] 47824 UA pH 6.0 Normal 5-8 [facility] Comment on above: Performed By: #### 5 [id number], [id number], [id number], [id number] ####[facility] (DEFAULT)[address] [place] [address] 71955 UA Protein 30 Abnormal NEGATIVE [facility] Comment on above: Performed By: #### 5 [id number], [id number], [id number], [id number] ####[facility] (DEFAULT)[address] [place] [address] UA Spec Grav >=1.030 Normal 1.001-1.035 [facility] Comment on above: Performed By: #### 5 [id number], [id number], [id number], [id number] ####[facility] (DEFAULT)[address] [place] [address] UA Urobilinogen 0.2 mg/dL Normal 0.2-1.0 [facility] Comment on above: Performed By: #### 5 [id number], [id number], [id number], [id number] ####[facility] (DEFAULT)[address] [place] [address] Urine Source Clean Catch Normal [facility] Comment on above: Performed By: #### 5 [id number], [id number], [id number], [id number] ####[facility] (DEFAULT)[address] [place] [address] Breakpoint UA Normal [facility] Comment on above: Performed By: #### 5 [id number], [id number], [id number], [id number] ####[facility] (DEFAULT)[address] [place] [address] Coding Summaryon 02-11-2024 Coding Summary HTMLBase 64 FofikquqZBn5oAp+PGhlY WQ+GN5PXFEuC94qvLGwzW 1bI7HQZQyTGoflJYBRTLb TYkGmfcNlWC9eiEKjFJCe IC8+JK3jTPKmLorirEPrs 1X8aOY2S27hpf3yQRmusU Y5MMGlCuBptsmcn9vtsPw 6IDcuNmluOyBt JRJrqI10FQK3iF49Yg72i SHeqSYhf7ozwOo2TiSuIT BjGUA7qOxcFJybp6YtLHO kY95lxPBcj7E8 UQDfrHjpaVDpPiKieXD0a Q0kJVvbiakvg3fvlmmkDf d9ri55aMLxu6S1qMJ5K8J vpvP6QOOsrCMm EcehkHGXfW8ulymes0afs lymQcSeIREzKUy8ZEf3XG VdvWyoFtSmBU54LNA0XGX fyyHcR2TnKOZx bWimZzU4d8M4Lv5VW9GSZ wesU2DEIROEVQcgoBO+PC 65jk37M1WjEdgcZky3SEA wUGU1wUQ7iK0l BXCgSMsyt8C2vPI7B3Ged iEjqd4ta1hvDBGfSHkrM1 1ppLRlr9Y0XKEsfYQ6XVG khYzmNsWzfT27 Oyc+RJHdeUlki4ToUawgo 7okn9caoYn4MjrlHJHncp XjzQptJNG5z1EvRc1cRSQ qwHD9lKB2mU8n PjTeQjU7EQsfY916KyMnb XBdOukhJ40aI2XtpHV+PH CbNhd2BQEqoCnxIQ7uF1H hZGRpbmctbGVm nKuvAL4tSTHxssbkOFUhj U7fDGNmR2z9QdAtXzK3DQ zdK4MqVTUmaqpaNv71cH8 ePtWpGlL8MAzs F4LngyB6DJJduSXqPVqnH FH8F17vx1S7DUIgKBFfRB F6vWZ2kF3fnDrccklvxPK mdDsgdmVydGlj EOohISttG592VTDtzJqpQ kNvZGluZyBEYXRlOiAgMT EvMDUvMjAyNDwvdGQ+PHR dGCG4zVplKCLq pNXnWLlbGh0pdZwrxPquN J8aRMHdojjrRZBnrI7dEV RocEHbwZskGQ3mHVWlyir em102SdEaVEY7 WSIobSUqW4JpnC7xGhObV QFjRCXtC2IwuNCrFVmpJ2 52IBglFhZ2CWWukiTzS0Z sLWFsaWduOiB0 v3T2Io8Xc8DhgxmoN7Zlu HClVzEvLwuzSKd8P1QvMp wvdHI+YK64PVFzJM46XJl 7GCD7uUraZBun RQGwZ2SanO6sUrXbNSCaA GRkOyc+PHRhYmxlIHdpZH RoPScxMDAlJyBzdHlsZT0 uZg4nLSEmIXTs rHnqsTGyUnRao2wiZDLaJ JpuSG5dkZztF0IxfIC8WV Eqt4s0Ip42G48hI5CtiJD +WHOvfWF5tMG9 zX1mEaIgNpS6JZvkO085O aIucUCmMtoan5psn7izxF k9QvY2WKZjutRulHouBYL 0s8SqGd98E73o IHdpZHRoPSIxNSUiIHZhb Mlwzc1igK7hLu2+PGNvbC T4eKC7iS9qEmCwUgG7OAo yV818VuAxtOXx Yxmai4pqw6hptGb8WqEcL EFwfmCkkCokXHC4g8YwZe 76T1LwaCiar0WcIdz8ig5 3eKXvq4W0cLV1 E1ZeUEXigjllaXEgfFhgG N4eTXPllgfnGVDmcL1kGU JrF3p5IlBsKyS3OGbvS8K tkwC6LGOluFAh OTWkePWJgX6yhigfg5sos rswIwLpAIZqJOe8RYm7FG TgzXfqPhHxWFQ8YqW2POQ 8cAKczZ5qdAoq nepojR6cRrp+XXV3nUYdk LETTA2sBvrbbMV+PHRkIH N2xPctOTcpGRYmmX3xBEJ cR5d7CpNzHqE6 PBfyU4QmtlL9SUOcuFBjJ KAfnOIWbO5cwmarf8yrrx bzVoStJKDnUGc9TCe9FQG saWduOiBsZWZ0 WhR5LLA4aNZyeB1ntSkcw hjrlG3pDxp+QmlydGggRG O1JPj6A2ChHbk0SIXjvYe iOG0auSNiPQbx Kd0iuZlqaQfdQM0mLMJam cged587JyFpt5bvBTHmoR ClNOyvITB5G95ka8W5POE wOYZhBCQ7yIK5 sC1yvIeuqracvSUhnLobo dKzuVxlAAauRRzjE949BV NklVdjGbNhAIw0S6VsTmd 3YKVgqPhpOK0i vPDhZNmlXt6otXgpcWscT L8oQGKvbuwub286ZhVjs3 spZRNzjCLmPIxhOQL7F19 av2Y4PCOfNVEr IHT4vNU8gZ2jdErsxeeen GVmdDsgdmVydGljYWwtYW jxE483NULdhEzuVjShcFe 1A0RkNwh1DLMj jMjnCR6fxCYoCOzpRo3za WsdnKjgEC9jSQLyhpfma7 87BnNig5bhDETqsPHiWSx vGQE4Q80xo9K8 NLWcHSZlNCM8dTC6sH3ty GlnbjogbGVmdDsgdmVydG wlGGakWOtlE170RCUdqMh nPlBhdGllbnQg YGejIZd2Y6GyIihpjZY+P X72ZOOaCS07zSZxcSTkd7 umrSb5WyFpMBBdPYB3cHm cHKmus0LhGQTd C42vmHBwb3F8EIUwkEypt RMjMwDsyXN6gP5iLHmhoa lbi7irbzvjKdkjl2syff1 6qV35P35uVZit ZHRoPSIzMCUiIHZhbGlnb h1okN9wDw6+WYLwhIT4hL R9pM8pKFBuLjE6RFkqQ60 9InRvcCIvPjxj w1fvh6wdpGt6McS8USPjs mGizTnjSUS8y3SdVn19Z6 9sIHdpZHRoPSIyMCUiIHZ aeVuoao0ylP2t Ii8+TURaiMH6xMS7jN2wR qYtDdE3CQmyF105OgWozA ByPnryY99uX7PvqEP+PHR jUgw9PIZkxQas BP8dtPIlIMgfZp4dUEA4M iDqOaToSGdiE5XkRFRvul drgqxcdZZ3CIXbJVGslD4 3Qn4xyCehFTXa pXDCnR9fursep9lxitiiA bNvHUWfEYn8TUg1MUYcvA dsEnOiYUO5HhJ7FPU4pIK nlT4weDenbaeq wY1jU3QwIBPddntyUp34c F4hWgFaOcE9WQzqUbo+R0 rNTfQFXHhrI2zXPWJRUPl OLQ1SVGgpwFG+ XCOjKIQ0jJmuZQriZGUmm B5wQFOyH4a3LrCoPsW6OU lrU1PgJIXkuotuSc90lR4 iCxZoSjE9APzm Q5OrawZ2JPQmvOGdAYpcD MH1X43se1Y1FBArDDHcSU R2eLM0pM0miYjipmogsQN mdDsgdmVydGlj DBqsJNoxU792QRUxvVktP aT7CmHiOfHgWWH2V1HfAx a9IPBxoUcsOZ9vgZQgJFl mLv1afJwgyJnf FQ3sBJInenucKSFpdE1fU CYteHLvqRfqBI4yIIJqvm lbf777MkIuTBV8SYJjrYY wG4JfdQ8rXkGe QEPlJPTcB6KstPHzJOgyG 561ECvtOnG1MEOgpgYcG3 ZbLOQhiJabBdS5x2J3Fu3 yMiBZZWFyczwv dGQ+PMOoOMC2kBaqREpxU LYnjB8xOWEyE7v6ZcQnJv V3DVhlM8HfMLWgxqmhJf9 3dC4tCjJtIrB5 VPgoH6CkszE9FBQlkXDsY XfwDOZ9U95ai8V4KHYgRY LhNLS2aBJ5tG8ehIqayed gbGVmdDsgdmVy uQdcSTdiQObfG310PSZyl DsnPkZFTUFMRTwvdGQ+PH EzADU4fXccMAxsMTQgtG1 vXCPfJ5c8CnKw QiW5DAgqS3HfNWUftgkfM g75bC0lTuUiNxP3JHkgF4 GmzxK6EHFcnCRpMHoiEGN 9R92dg8C7DOJn BXZkWLG5bSE2kF3abMedj jogbGVmdDsgdmVydGljYW hqDQjtJ907XSEnyGpeTe1 ANG80TR78R8Ch PjwvdGFibGU+PHRhYmxlI HdpZHRoPScxMDAlJyBzdH qoWP4oPf1xAKOgLAAamUy qhERxTbLbj5ue MIJuXAktTA1sdUygS6Gox LA4RQUwc6l1Zj75L83oM2 JvdXA+UEYyfEN9pWR0aH5 dPvAwUaJ7UWpz W388TbVohORkIyjep6cgr 3ooaCe8ZyAgGMMcbqUzdP ygMUJ3a2XwGb76U65fZKe pZHRoPSIyMCUi ERPidXdjhk0ecV6tTt0+P HAsyLA9dRJ8rG6rRiChIy J3LPhqU149JbFdvXVcRiy dG96kT4KkmMO+ BPGwGie5QMPnjWkhEQ9xw MYsPSduPc0wGJH6BkIsRf TyWPihP8OiKVHnxynyevf byZV5OLGjNRYz tU51Uw7ceRefZa2jIVDmB SR3RFPvaGOjH0YcvW5zJu LxVUWoFFQrY9OmqPWrDDo uH434WUvzAhH0 OKOnekJfJ3MrMCIxkRppW fH8r7L3Le4SkQguuHJrDF 5vGnCfKUe5T2VmLwc1LGS ffBeoWR2twSHj CWarUt9ndOqygMbdJD6rU SKdacchd193GsYxq8dgPA AowBSiXXotAXI3Q41yj3P 7SHZvVOTeQDS4 cBO1qQ4vlLkbqvetiOVkz DsgdmVydGljYWwtYWxpZ2 80OYBadCrtBuWJYwy9U7U tYdm3RJSbiEve RQ9etLErXAriFi5dhFaer CcoWQ7lONEhzlmdh182Wj Nyw8vaKNXdiUVcFXecONZ 3F39bs1A3XFBf OTDeMWM9aDU3uJ4xpMksc jogbGVmdDsgdmVydGljYW mgVBfmD097UWWjjXetQc0 XLiv6R0RzEzo4 BURfaCfpBH2twZZzFUbuJ j9tdSctvExoHQ1mAQZuoe vxa596LeRhx3gdKTTxuCZ oXGydLVC8V58o h0I0KJRlBTHyPWG9kNI5w H7yxMjfmpxwxQYppNbadn LzpMhvMQjoIPxeS919DDX vcDsnPlBheWVy OjwvdGQ+CU10dx16I2CrL ulzRgt6KYOpHPW4kYU0sP 3kXEQqBIiqo3A3sGS1Z7J vytCaml4ly4ml YXB (more content not included)... Normal [facility] C Throaton 01-30-2024 C Throat Ordered by Discern. Normal throat jonny isolated No pathogens isolated Normal [facility] Comment on above: Performed By: #### 1 [id number], [id number] #### [facility] (DEFAULT) [address] [place] [address] ED Clinical Summaryon 2023 ED Clinical Summary [facility] ? Urgent Care [address] [place] [address] 6[address] Clinical Summary PERSON INFORMATION Name: LIA DESAI Age: 23 Years Sex: FEMALE : 2000 MRN: Acct#: Visit Reason: Body aches; UC - Sore Throat; Earache; Cough; Throat pain - Adult; CONGESTION, BRYAN EAR PAIN, SORE THROAT, BODY ACHES Arrival: 01/28/2024 11:07:11 Discharge: 01/28/2024 12:39:00 LOS: 000 01:32 Check In: 01/28/2024 11:07:11 Checkout: 01/28/2024 12:39:00 Address: [address] [place] [address] PCP: ROBERT MARRERO PROVIDER INFORMATION Provider Role Assigned Unassigned Errol Ortega ED PA 01/28/2024 11:10:09 Corrina Grant GARMENT EXAMINER Nurse 01/28/2024 11:19:17 VITALS INFORMATION Vital Sign [...] With: Address: When: ROBERT MARRERO [address] [place] [address] Business (1) Within 5 to 7 days [...] understanding of instructions given Comment: Normal [facility] ED Patient Summaryon 024 ED Patient Summary [facility] ? Urgent Care [address] [place] [address] PATIENT DISCHARGE INSTRUCTIONS Patient Information Name: LIA DESAI Age: 23 Years Date of : 2000 Reason For Visit: Body aches; UC - Sore Throat; Earache; Cough; Throat pain - Adult; CONGESTION, BRYAN EAR PAIN, SORE THROAT, BODY ACHES Arrival Time: 01/28/2024 11:07:11 Primary Care Physician: ROBERT MARRERO Attending Physician: Errol Ortega Comment: Patient Education With: Address: When: ROBERT MARRERO [address] [place] [id number] Business (1) Within 5 to 7 days [...] to help relieve symptoms, such as: ? Kboz-ubt-bzhrhsh cold medicines. ? Cough suppressants. Coughing is [...] other clear broths. General instructions ? Take haca-hia-orqutod and prescription medicines only as told by [...] and water are not available, use hand transfer clerk. ? Avoid touching your mouth, face, eyes, or nose. ? Cough or sneeze into a tissue or your sleeve or elbow instead of into your hand or into the air. Contact a health care provider if: ? Y (more content not included)... [facility] POCT Rapid CoV-2 (COVID-19) Antigen/ Flu A&Bon 01-28-2024 Influenza A POCT Negative [facility] Comment on above: Performed By: #### 1 [id number], [id number], [id number] #### [facility] (DEFAULT) [address] [place] [address]85 Influenza B POCT Negative [facility] Comment on above: Performed By: #### 1 [id number], [id number], [id number] #### [facility] (DEFAULT) [address] [place] [address] 06906 SARS-CoV-2 (COVID-19) RNA MILY+probe Ql (Unsp spec) Not detected [facility] Comment on above: Performed By: #### 1 [id number], [id number], [id number] #### [facility] (DEFAULT) [address] [place] [address] 74073 Strep Aon 01-28-2024 Strep procedure control Pass [facility] Comment on above: Performed By: #### 1 [id number], [id number], [id number] #### [facility] (DEFAULT) [address] [place] [address] 48063 Streptococcus A Negative [facility] Comment on above: Performed By: #### 1 [id number], [id number], [id number] #### [facility] (DEFAULT) [address] [place] [address]01 Urgent Care Note- Provideron 01-28-2024 Urgent Care [...] Resolved Disease caused by 2019 novel coronavirus (6509125912): Onset on 11/23/2020 at 20 years. Resolved. Comments: 11/23/2020 CDT 16:07 CDT - SYSTEM Problem added by Rule (IC_COVID19_AUTO_PROB CAMI) following 2019 Novel Coronavirus (CoVID-19), MILY L from Nasopharyngeal Swab collected on 22-NOV-2020 16:44:00 EDT tested positive for COVID-19. no history ([id number]): Resolved. Contact dermatitis (49395985): Resolved. Pharyngitis (1235220146): Resolved. Cough (20199863): Resolved.. Surgical history: Tonsillectomy and adenoidectomy ([id number]).. Family history: No family history items have [...] uvula s (more content not included)... Normal [facility] [place] 024 Urgent Care Record [facility] ? Urgent Care [address] [place] [address] PATIENT DISCHARGE INSTRUCTIONS Patient Information Name: LIA DESAI Age: 23 Years Date of : 2000 Reason For Visit: Body aches; UC - Sore Throat; Earache; Cough; Throat pain - Adult; CONGESTION, BRYAN EAR PAIN, SORE THROAT, BODY ACHES Arrival Time: 01/28/2024 11:07:11 Primary Care Physician: ROBERT MARRERO Attending Physician: Errol Ortega Comment: Visit Diagnosis: Diagnoses This Visit Acute URI (J06.9) Body aches ([id number]) Cough ([id number]) Earache ([id number]) Throat pain - Adult ([id number]) UC - Sore Throat ([id number]) If you received any narcotics, sedation, or [...] With: Address: When: ROBERT MARRERO [address] [phone] Business (1) Within 5 to 7 days Comments: Viral upper respiratory illness. mother. Contagious 72 hours from onset Strep, Covid, Flu negative. Vitals good today. Begin Mucinex 600mg 1 po BID x 7 days. Begin Saline nasal spray Consider humidifier or Vics salve. Return if worse in any way. Medication Information: The exam and treatment you received today in the [facility] were for an urgent problem and are not intended as complete care. It is important for you to follow up with a doctor, nurse practitioner, or physician?s golf player assistant for ongoing care. If your symptoms [...] we can reach you if necessary. [facility] has provided you with a complete list of medications post discharge. Please inform your metal miner blasting/provider of your visit and for further instruction on these medications. Any specific questions regarding your chronic medications and dosages should be discussed with your primary care physician(s) and/or pharmacist. New Medications [facility], [address], [place] [id number], [phone] guaiFENesin (Mucinex 600 mg oral tablet, extended release) 1 tab(s) Oral (given by mouth) Every 12 hours scheduled time as needed congestion for 10 Days. Refills: 0. sodium chloride nasal ([place] Saline Mist 0.65% nasal spray) 2 spray(s) [...] very old. (more content not included)... Normal [facility] ALL CBC WITH AUTO DIFFon BASOPHILS ABSOLUTE AUTO 0.1 [facility] Basophils/100 WBC (Bld) 0.5 % 0.2 - 2.0 % [facility] Eosinophils/100 WBC (Bld) 0.8 % Low 0.9 - 7.0 % [facility] Erythrocyte distribution width (RBC) [Ratio] 13.3 % 11.0 - 15.0 % [facility] Hematocrit (Bld) [Volume fraction] 31.5 % Low 36.0 - 48.0 % [facility] Hemoglobin (Bld) [Mass/Vol] 10.0 g/dL Low 12.0 - 16.0 g/dL [facility] IMMATURE GRANULOCYTES ABS AUTO 0.19 High [facility] Immature granulocytes/100 WBC (Bld) 1.3 % High 0.0 - 0.5 % [facility] Interpretation and review of laboratory results Abnormal [facility] LYMPHOCYTES ABSOLUTE AUTO 4.0 High [facility] Lymphocytes/100 WBC (Bld) 27.7 % 20.5 - 60.0 % [facility] MCH (RBC) [Entitic mass] 26.5 pg Low 26.7 - 34.0 pg [facility] MCHC (RBC) [Mass/Vol] 31.7 g/dL 29.9 - 35.2 g/dL [facility] MCV (RBC) [Entitic vol] 83.6 fL 81.0 - 99.0 fL [facility] MONOCYTES ABSOLUTE AUTO 1.4 High [facility] Monocytes/100 WBC (Bld) 9.6 % 1.7 - 12.0 % [facility] NEUTROPHILS ABSOLUTE AUTO 8.6 High [facility] Neutrophils/100 WBC (Bld) 60.1 % 43.0 - 75.0 % [facility] Platelet mean volume (Bld) [Entitic vol] 10.2 fL 9.5 - 13.5 fL [facility] TBH EO # 0.1 [facility] PLT 323 [facility] RBC 3.77 Low [facility] WBC 14.3 High [facility] CBC WITH PLATELET NO DI FFERENTIALon 12-04-2023 Erythrocyte distribution width (RBC) [Ratio] 12.9 % 11.0 - 15.0 % [facility] Hematocrit (Bld) [Volume fraction] 36.4 % 36.0 - 48.0 % [facility] Hemoglobin (Bld) [Mass/Vol] 11.8 g/dL Low 12.0 - 16.0 g/dL [facility] Interpretation and review of laboratory results Abnormal [facility] MCH (RBC) [Entitic mass] 26.9 pg 26.7 - 34.0 pg [facility] MCHC (RBC) [Mass/Vol] 32.4 g/dL 29.9 - 35.2 g/dL [facility] MCV (RBC) [Entitic vol] 82.9 fL 81.0 - 99.0 fL [facility] Platelet mean volume (Bld) [Entitic vol] 10.1 fL 9.5 - 13.5 fL [facility] PLT 423 [facility] RBC 4.39 [facility] WBC 14.6 High [facility] Cytology Cervical or vaginal smear or scraping studyon 07-01-2023 [facility] ALL CBC WITH AUTO DIFFon BASOPHILS ABSOLUTE AUTO 0.0 [facility] Basophils/100 WBC (Bld) 0.3 % 0.2 - 2.0 % [facility] Eosinophils/100 WBC (Bld) 0.5 % Low 0.9 - 7.0 % [facility] Erythrocyte distribution width (RBC) [Ratio] 12.2 % 11.0 - 15.0 % [facility] Hematocrit (Bld) [Volume fraction] 38.6 % 36.0 - 48.0 % [facility] Hemoglobin (Bld) [Mass/Vol] 12.3 g/dL 12.0 - 16.0 g/dL [facility] IMMATURE GRANULOCYTES ABS AUTO 0.02 [facility] Immature granulocytes/100 WBC (Bld) 0.2 % 0.0 - 0.5 % [facility] Interpretation and review of laboratory results Abnormal [facility] LYMPHOCYTES ABSOLUTE AUTO 3.1 [facility] Lymphocytes/100 WBC (Bld) 32.8 % 20.5 - 60.0 % [facility] MCH (RBC) [Entitic mass] 28.6 pg 26.7 - 34.0 pg [facility] MCHC (RBC) [Mass/Vol] 31.9 g/dL 29.9 - 35.2 g/dL [facility] MCV (RBC) [Entitic vol] 89.8 fL 81.0 - 99.0 fL [facility] MONOCYTES ABSOLUTE AUTO 0.7 [facility] Monocytes/100 WBC (Bld) 7.7 % 1.7 - 12.0 % [facility] NEUTROPHILS ABSOLUTE AUTO 5.4 [facility] Neutrophils/100 WBC (Bld) 58.5 % 43.0 - 75.0 % [facility] Platelet mean volume (Bld) [Entitic vol] 10.7 fL 9.5 - 13.5 fL [facility] EO # 0.1 [facility] PLT 211 [facility] RBC 4.30 [facility] WBC 9.3 [facility] US PREG TVon 08-08-2022 US PREG TV [...] by: CHRISTIAN HOPE Date: 2022-08-08 16:56 Normal [facility] US PELVIS AND TRANSVAGon US PELVIS [...] by: ANGELA SCOTT Date: 2022-06-04 06:57 Normal [facility] US PREG TVon 05-16-2022 US PREG [...] CHRISTIAN HOPE Date: 2022-05-16 18:15 Normal [facility] HEP B SURFACE ANTIGEN SCREEN on 04-20-2022 HBsAg Screen Negative Normal Negative [facility] Comment on above: Performed By: #### H BSANS #### [facility] [address] [address] [address] Jeronimo Melgar HEPATITIS C VIRUS AB W/ REFL EX QUANTon 04-20-2022 HCV AB <0.1 Normal 0.0-0.9 [facility] Comment on above: Performed By: #### H CVPCRR #### [facility] [address] [address] [address] Jeronimo Melgar Interpretation: Comment Normal [facility] Comment on above: Result Comment: Nega tive Not infected with HCV, unless recent infection is suspected or other evidence exists to indicate HCV infection. Performed By: #### H CVPCRR #### [facility] [address] [address] [address] Jeronimo Melgar HIV 1 AND 2 WITH REFLEXon HIV Screen 4th Generation wRfx Non-Reactive Normal Non Reactive [facility] Comment on above: Result Comment: HIV Negative HIV-1/HIV-2 antibodies and HIV-1 p24 antigen were NOT detected. There is no laboratory evidence of HIV infection. Performed By: #### H IV12 #### [facility] [address] [address] [address] Jeronimo Melgar RPR QUANTon 04-20-2022 Rapid Plasma Reagin, Quant Non-Reactive Normal NonRea<1:1 [facility] Comment on above: Result Comment: Plea se Note: This test does not meet current guidelines for screening and diagnosis of syphilis. This test is intended for following treatment response in patients being treated for syphilis infection. To screen for syphilis infection, a reflex cascade that includes both RPR and a treponema-specific assay should be utilized, such as Treponema pallidum (Syphilis) Screening [place] (739492) or Rapid Plasma Reagin (RPR) Test With Reflex to Quantitative RPR and Confirmatory Treponema pallidum Antibodies (448871). Performed By: #### R PRQ #### [facility] [address] [place] [address] Dr. Jeronimo Melgar RUBELLA AB IGGon 04-20-2022 Rubella Antibodies, IgG 1.85 index Normal Immune >0.99 [facility] Comment on above: Result Comment: Non- immune <0.90 Equivocal 0.90 - 0.99 Immune >0.99 Performed By: #### B OX #### [facility] [address] [place] [address] Dr. Jeronimo Melgar BOX TEST SENT OUTon 04-19-19 SENT TO REF LAB 04/19/2022 Normal [facility] Comment on above: Performed By: #### B OX #### [facility] [address] [place] [address] Dr. Jeronimo Melgar CBC AUTO DIFFon 04-19-2022 BASO # 0.1 103/ul Normal 0.0-0.1 [facility] Comment on above: Performed By: #### B OX #### [facility] [address] [place] [address] Dr. Jeronimo Melgar Basophils/100 WBC (Bld) 0.5 % Normal 0.2-2.0 [facility] Comment on above: Performed By: #### B OX #### [facility] [address] [place] [address] Dr. Jeronimo Melgar EO # 0.1 103/ul Normal 0.0-0.7 [facility] Comment on above: Performed By: #### B OX #### [facility] [address] [place] [address] Dr. Jeronimo Melgar Eosinophils/100 WBC (Bld) 0.7 % Critically low 0.9-7.0 [facility] Comment on above: Performed By: #### B OX #### [facility] [address] [place] [address] Dr. Jeronimo Melgar Erythrocyte distribution width (RBC) [Ratio] 12.8 % Normal 11.0-15.0 [facility] Comment on above: Performed By: #### B OX #### [facility] [address] [place] [address] Dr. Jeronimo Melgar Hematocrit (Bld) [Volume fraction] 43.7 % Normal 36.0-48.0 [facility] Comment on above: Performed By: #### B OX #### [facility] [address] [place] [address] Dr. Jeronimo Melgar Hemoglobin (Bld) [Mass/Vol] 13.1 g/dL Normal 12.0-16.0 [facility] Comment on above: Performed By: #### B OX #### [facility] [address] [place] [address] Dr. Jeronimo Melgar IG # 0.02 10e3/ul Normal 0.00-0.03 [facility] Comment on above: Performed By: #### B OX #### [facility] [address] [place] [address] Dr. Jeronimo Melgar IG % 0.2 % Normal 0.0-0.5 [facility] Comment on above: Performed By: #### B OX #### [facility] [address] [place] [address] Dr. Jeronimo Melgar LYMPH # 2.6 103/ul Normal 1.2-3.8 [facility] Comment on above: Performed By: #### B OX #### [facility] [address] [place] [address] Dr. Jeronimo Melgar Lymphocytes/100 WBC (Bld) 27.3 % Normal 20.5-60.0 [facility] Comment on above: Performed By: #### B OX #### [facility] [address] [place] [address] Dr. Jeronimo Melgar MANUAL DIFF REQ NO Normal [facility] Comment on above: Performed By: #### B OX #### [facility] [address] [place] [address] Dr. Jeronimo Melgar MCH (RBC) [Entitic mass] 27.7 pg Normal 26.7-34.0 [facility] Comment on above: Performed By: #### B OX #### [facility] [address] [place] [address] Dr. Jeronimo Melgar MCHC (RBC) [Mass/Vol] 30.0 g/dL Normal 29.9-35.2 [facility] Comment on above: Performed By: #### B OX #### [facility] [address] [place] [address] Dr. Jeronimo Melgar MCV (RBC) [Entitic vol] 92.4 fL Normal 81.0-99.0 [facility] Comment on above: Performed By: #### B OX #### [facility] [address] [place] [address] Dr. Jeronimo Melgar MONO # 0.8 103/ul Normal 0.3-0.8 [facility] Comment on above: Performed By: #### B OX #### [facility] [address] [place] [address] Dr. Jeronimo Melgar Monocytes/100 WBC (Bld) 7.8 % Normal 1.7-12.0 [facility] Comment on above: Performed By: #### B OX #### [facility] [address] [place] [address] Dr. Jeronimo Melgar NEUT # 6.1 103/ul Normal 1.4-6.5 [facility] Comment on above: Performed By: #### B OX #### [facility] [address] [place] [address] Dr. Jeronimo Melgar Neutrophils/100 WBC (Bld) 63.5 % Normal 43.0-75.0 [facility] Comment on above: Performed By: #### B OX #### [facility] [address] [place] [address] Dr. Jeronimo Melgar Platelet mean volume (Bld) [Entitic vol] 10.7 fL Normal 9.5-13.5 [facility] Comment on above: Performed By: #### B OX #### [facility] [address] [place] [address] Dr. Jeronimo Melgar PLT 399 103/ul Normal 150-450 [facility] Comment on above: Performed By: #### B OX #### [facility] [address] [place] [address] Dr. Jeronimo Melgar RBC 4.73 106/ul Normal 4.20-5.40 [facility] Comment on above: Performed By: #### B OX #### [facility] [address] [place] [address] Dr. Jeronimo Melgar WBC 9.6 103/ul Normal 4.0-11.0 [facility] Comment on above: Performed By: #### B OX #### [facility] [address] [place] [address] Dr. Jeronimo Melgar CULTURE URINEon 04-19-2022 CULTURE URINE Culture Observations : LIGHT GROWTH OF MIXED GENITAL JONNY. NO POTENTIAL PATHOGENS SEEN. Normal [facility] Comment on above: Performed By: #### B OX #### [facility] [address] [place] [address] Dr. Jeronimo Melgar DRUG SCREEN RAPID (URINE)on 04-19-2022 AMP Negative Normal NEGATIVE [facility] Comment on above: Performed By: #### H IV12 #### [facility] [address] [place] [address] Dr. Jeronimo Melgar BAR Negative Normal NEGATIVE [facility] Comment on above: Performed By: #### H IV12 #### [facility] [address] [place] [address] Dr. Jeronimo Melgar BUP Negative Normal NEGATIVE [facility] Comment on above: Performed By: #### H IV12 #### [facility] [address] [place] [address] Dr. Jeronimo Melgar BZO Negative Normal NEGATIVE [facility] Comment on above: Performed By: #### H IV12 #### [facility] [address] [place] [address] Dr. Jeronimo Melgar KRISTINA Negative Normal NEGATIVE [facility] Comment on above: Performed By: #### H IV12 #### [facility] [address] [place] [address] Dr. Jeronimo Melgar CUT-OFFS SEE BELOW Normal [facility] Comment on above: Result Comment: AMP [...] ng/mL Performed By: #### H IV12 #### [facility] [address] [place] [address] Dr. Jeronimo Melgar DRUG CUT HEADER DRUG CLASS TEST SYSTEM CUT-OFF CONCENTRATIONS ARE FOLLOWS: Normal [facility] Comment on above: Performed By: #### H IV12 #### [facility] [address] [place] [address] Dr. Jeronimo Melgar mAMP Negative Normal NEGATIVE [facility] Comment on above: Performed By: #### H IV12 #### [facility] [address] [place] [address] Dr. Jeronimo Melgar MTD Negative Normal NEGATIVE [facility] Comment on above: Performed By: #### H IV12 #### [facility] [address] [place] [address] Dr. Jeronimo Melgar OPI Negative Normal NEGATIVE [facility] Comment on above: Performed By: #### H IV12 #### [facility] [address] [place] [address] Dr. Jeronimo Melgar OXY Negative Normal NEGATIVE [facility] Comment on above: Performed By: #### H IV12 #### [facility] [address] [place] [address] Dr. Jeronimo Melgar PCP Negative Normal NEGATIVE [facility] Comment on above: Performed By: #### H IV12 #### [facility] [address] [place] [address] Dr. Jeronimo Melgar PPX Negative Normal NEGATIVE [facility] Comment on above: Performed By: #### H IV12 #### [facility] [address] [address] [address] Jeronimo Melgar TCA Negative Normal NEGATIVE [facility] Comment on above: Performed By: #### H IV12 #### [facility] [address] [address] [address] Jeronimo Melgar THC Negative Normal NEGATIVE [facility] Comment on above: Performed By: #### H IV12 #### [facility] [address] [address] [address] Jeronimo Melgar GLYCOHEMOGLOBIN A1Con 2022 ADA RECOMMENDATION SEE BELOW Normal [facility] Comment on above: Result Comment: ADA RECOMMENDED LIMIT 4.0 - 6.0 ADA THERAPEUTIC TARGET < 7.0 ACTION SUGGESTED > 7.0 Performed By: #### A 1C #### [facility] [address] [place] [address] Dr. Jeronimo Melgar Glucose [Mass/Vol] 100 mg/dL Normal [facility] Comment on above: Performed By: #### A 1C #### [facility] [address] [place] [address] Dr. Jeronimo Melgar HbA1c (Bld) [Mass fraction] 5.1 % Normal 4.5-6.2 [facility] Comment on above: Performed By: #### A 1C #### [facility] [address] [place] [address] Dr. Jeronimo Melgar TYPE AND SCREENon 04-19-2022 TYPE AND SCREEN Negative Normal [facility] Comment on above: Performed By: #### B OX #### [facility] [address] [place] [address] Dr. Jeronimo Melgar CBC AUTO DIFFon 04-02-2022 BASO # 0.0 103/ul Normal 0.0-0.1 [facility] Comment on above: Performed By: #### C BC #### [facility] [address] [place] [address] Dr. Jeronimo Melgar Basophils/100 WBC (Bld) 0.3 % Normal 0.2-2.0 [facility] Comment on above: Performed By: #### C BC #### [facility] [address] [address] [address] Jeronimo Melgar EO # 0.0 103/ul Normal 0.0-0.7 [facility] Comment on above: Performed By: #### C BC #### [facility] [address] [place] [address] Dr. Jeronimo Melgar Eosinophils/100 WBC (Bld) 0.2 % Critically low 0.9-7.0 [facility] Comment on above: Performed By: #### C BC #### [facility] [address] [place] [address] Dr. Jeronimo Melgar Erythrocyte distribution width (RBC) [Ratio] 12.9 % Normal 11.0-15.0 [facility] Comment on above: Performed By: #### C BC #### [facility] [address] [place] [address] Dr. Jeronimo Melgar Hematocrit (Bld) [Volume fraction] 37.5 % Normal 36.0-48.0 [facility] Comment on above: Performed By: #### C BC #### [facility] [address] [place] [address] Dr. Jeronimo Melgar Hemoglobin (Bld) [Mass/Vol] 12.4 g/dL Normal 12.0-16.0 [facility] Comment on above: Performed By: #### C BC #### [facility] [address] [place] [address] Dr. Jeronimo Melgar IG # 0.05 10e3/ul Critically high 0.00-0.03 [facility] Comment on above: Performed By: #### C BC #### [facility] [address] [place] [address] Dr. Jeronimo Melgar IG % 0.3 % Normal 0.0-0.5 [facility] Comment on above: Performed By: #### C BC #### [facility] [address] [place] [address] Dr. Jeronimo Melgar LYMPH # 2.0 103/ul Normal 1.2-3.8 [facility] Comment on above: Performed By: #### C BC #### [facility] [address] [place] [address] Dr. Jeronimo Melgar Lymphocytes/100 WBC (Bld) 14.1 % Critically low 20.5-60.0 [facility] Comment on above: Performed By: #### C BC #### [facility] [address] [place] [address] Dr. Jeronimo Melgar MANUAL DIFF REQ NO Normal [facility] Comment on above: Performed By: #### C BC #### [facility] [address] [place] [address] Dr. Jeronimo Melgar MCH (RBC) [Entitic mass] 27.9 pg Normal 26.7-34.0 [facility] Comment on above: Performed By: #### C BC #### [facility] [address] [place] [address] Dr. Jeronimo Melgar MCHC (RBC) [Mass/Vol] 33.1 g/dL Normal 29.9-35.2 [facility] Comment on above: Performed By: #### C BC #### [facility] [address] [place] [address] Dr. Jeronimo Melgar MCV (RBC) [Entitic vol] 84.3 fL Normal 81.0-99.0 [facility] Comment on above: Performed By: #### C BC #### [facility] [address] [place] [address] Dr. Jeronimo Melgar MONO # 0.6 103/ul Normal 0.3-0.8 [facility] Comment on above: Performed By: #### C BC #### [facility] [address] [place] [address] Dr. Jeronimo Melgar Monocytes/100 WBC (Bld) 4.0 % Normal 1.7-12.0 [facility] Comment on above: Performed By: #### C BC #### [facility] [address] [place] [address] Dr. Jeronimo Melgar NEUT # 11.7 103/ul Critically high 1.4-6.5 [facility] Comment on above: Performed By: #### C BC #### [facility] [address] [place] [address] Dr. Jeronimo Melgar Neutrophils/100 WBC (Bld) 81.1 % Critically high 43.0-75.0 [facility] Comment on above: Performed By: #### C BC #### [facility] [address] [place] [address] Dr. Jeronimo Melgar Platelet mean volume (Bld) [Entitic vol] 10.2 fL Normal 9.5-13.5 [facility] Comment on above: Performed By: #### C BC #### [facility] [address] [place] [address] Dr. Jeronimo Melgar PLT 420 103/ul Normal 150-450 [facility] Comment on above: Performed By: #### C BC #### [facility] [address] [place] [address] Dr. Jeronimo Melgar RBC 4.45 106/ul Normal 4.20-5.40 [facility] Comment on above: Performed By: #### C BC #### [facility] [address] [place] [address] Dr. Jeronimo Melgar WBC 14.4 103/ul Critically high 4.0-11.0 [facility] Comment on above: Performed By: #### C BC #### [facility] [address] [place] [address] Dr. Jeronimo Melgar ER URINE PROFILEon 2 Bilirubin Ql (U) Negative Normal NEGATIVE [facility] Comment on above: Performed By: #### B OX #### [facility] [address] [place] [address] Dr. Jeronimo Melgar Clarity (U) CLEAR Normal CLEAR [facility] Comment on above: Performed By: #### B OX #### [facility] [address] [place] [address] Dr. Jeronimo Melgar Color (U) YELLOW Normal YELLOW [facility] Comment on above: Performed By: #### B OX #### [facility] [address] [place] [address] Dr. Jeronimo FLORES A micrscopic examination will be performed if indicated. Normal [facility] Comment on above: Performed By: #### B OX #### [facility] [address] [address] [address] Jeronimo Melgar Glucose Ql (U) Negative Normal NEGATIVE [facility] Comment on above: Performed By: #### B OX #### [facility] [address] [address] [address] Jeronimo Melgar Hemoglobin Ql (U) Negative Normal NEGATIVE [facility] Comment on above: Performed By: #### B OX #### [facility] [address] [address] [address] Jeronimo Melgar Ketones Ql (U) >=80 Abnormal NEGATIVE [facility] Comment on above: Performed By: #### B OX #### [facility] [address] [place] [address] Dr. Jeronimo Melgar LEUKOCYTES Negative Normal NEGATIVE [facility] Comment on above: Performed By: #### B OX #### [facility] [address] [address] [address] Jeronimo Melgar Nitrite Ql (U) Negative Normal NEGATIVE [facility] Comment on above: Performed By: #### B OX #### [facility] [address] [place] [address] Dr. Jeronimo Melgar pH (U) 7.0 [pH] Normal 5-9 [facility] Comment on above: Performed By: #### B OX #### [facility] [address] [place] [address] Dr. Jeronimo Melgar SPEC GRAVITY 1.020 Normal 1.005-<=1.025 [facility] Comment on above: Performed By: #### B OX #### [facility] [address] [address] [address] Jeronimo Melgar UA PROTEIN TRACE Normal NEGATIVE/ TRACE [facility] Comment on above: Performed By: #### B OX #### [facility] [address] [place] [address] Dr. Jeronimo Melgar UR MICRO IND NOT INDICATED Normal [facility] Comment on above: Performed By: #### B OX #### [facility] [address] [address] [address] Jeronimo Melgar Urobilinogen Qn (U) 1.0 {Pepito'U}/dL Normal 0.2 - 1. 0 [facility] Comment on above: Performed By: #### B OX #### [facility] [address] [address] [address] Jeronimo Melgar PROF CHEM 8 (BAS METB)on Anion gap [Moles/Vol] 12.7 mmol/L Normal [facility] Comment on above: Performed By: #### B MP #### [facility] [address] [address] [address] Jeronimo Melgar Calcium [Mass/Vol] 9.1 mg/dL Normal 8.5-10.1 [facility] Comment on above: Performed By: #### B MP #### [facility] [address] [address] [address] Jeronimo Melgar Chloride [Moles/Vol] 103 mmol/L Normal 98-107 [facility] Comment on above: Performed By: #### B MP #### [facility] [address] [address] [address] Jeronimo Melgar CO2 [Moles/Vol] 23.9 mmol/L Normal 21.0-32.0 [facility] Comment on above: Performed By: #### B MP #### [facility] [address] [address] [address] Jeronimo Melgar Creatinine [Mass/Vol] 0.78 mg/dL Normal 0.55-1.02 [facility] Comment on above: Performed By: #### B MP #### [facility] [address] [address] [address] Jeronimo Melgar EGFR-AF PARAGUAYAN >60 Normal >=60 [facility] Comment on above: Performed By: #### B MP #### [facility] [address] [address] [address] Jeronimo Melgar EGFR-NON AF PARAGUAYAN >60 Normal >=60 [facility] Comment on above: Performed By: #### B MP #### [facility] [address] [address] [address] Jeronimo Melgar Glucose [Mass/Vol] 155 mg/dL Critically high 74-106 [facility] Comment on above: Performed By: #### B MP #### [facility] [address] [address] [address] Jeronimo Melgar Potassium [Moles/Vol] 3.6 mmol/L Normal 3.5-5.1 [facility] Comment on above: Performed By: #### B MP #### [facility] [address] [address] [address] Jeronimo Melgar Sodium [Moles/Vol] 136 mmol/L Normal 136-145 [facility] Comment on above: Performed By: #### B MP #### [facility] [address] [address] [address] Jeronimo Melgar Urea nitrogen [Mass/Vol] 7.0 mg/dL Normal 7.0-18.0 [facility] Comment on above: Performed By: #### B MP #### [facility] [address] [address] [address] Jeronimo Melgar Urea nitrogen/Creatinine [Mass ratio] 9.0 mg/mg Normal [facility] Comment on above: Performed By: #### B MP #### [facility] [address] [address] [address] Jeronimo Melgar US PREG TVon 03-28-2022 [...] ANGELA SCOTT Date: 2022-03-28 16:32 Normal [facility] US PELVIS AND TRANSVAGon US PELVIS [...] CHRISTIAN HOPE Date: 2021-10-17 16:35 Normal [facility] CHLAMYDIA/GONOCOCCUS MILY ( AB/URINE/PAPon 10-14-2021 Chlamydia trachomatis, MILY Positive Abnormal Negative [facility] Comment on above: Result Comment: . Performed By: #### C T/NGNA #### [facility] [address] [place] [address] Dr. Jeronimo Melgar Neisseria gonorrhoeae, MILY Negative Normal Negative [facility] Comment on above: Performed By: #### C T/NGNA #### [facility] [address] [place] [address] Dr. Jeronimo Melgar VAGINITIS/VAGINOSIS DNA PROB Obed 10-13-2021 Yang species Negative Normal Negative [facility] Comment on above: Performed By: #### V AGINT #### [facility] [address] [place] [address] Dr. Jeronimo Melgar Gardnerella vaginalis Negative Normal Negative [facility] Comment on above: Performed By: #### V AGINT #### [facility] [address] [place] [address] Dr. Jeronimo Melgar Trichomonas vaginalis Negative Normal Negative [facility] Comment on above: Performed By: #### V AGINT #### [facility] [address] [place] [address] Dr. Jeronimo Melgar XR foot LT min 3V*on 022 XR foot LT min 3V* [facility] [address] [address] XRay Report Signed Patient: Lia Desai MR#: [id number] : 2000 Acct:[id number] Age/Sex: 20 / F ADM Date: 07/18/21 Loc: ER Room: Type: [facility] ER Attending Dr: Ordering Provider: Oneil Ricci APRN Date of Service: 07/18/21 XR/XR foot LT min 3V*: Extremity Injury, Lower ([id number]) XR/XR ankle LT min 3V*: Extremity Injury, [...] Brewer Jr., M.D.07/18/2021 6:15 PM Dictation Location: [place] [address] Transcribed By: [facility] 07/18/211814 Dictated By: Bijan Brewer Jr, MD 07/18/211812 Signed By: 07/18/211814 Normal [facility] XR knee RT 4V*on 05-15-2021 XR knee RT 4V* [facility] [address] [address] XRay Report Signed Patient: Lia Desai MR#: [id number] : 2000 Acct:[id number] Age/Sex: 20 / F ADM Date: 05/15/21 Loc: ER Room: Type: [facility] ER Attending Dr: Ordering Provider: Yovani [...] Ana Juan M.D.05/15/2021 8:11 PM Dictation Location: [place] [address] Transcribed By: [facility] 05/15/212010 Dictated By: Ana Juan II, MD 05/15/212008 Signed By: 05/15/212010 [facility] Vital Signs Date Time Vital Sign Value Performing Clinician Facility 01-19-2025 11:25-0400 Body mass index (BMI) [Ratio] 41.66 kg/m2 [employer]ILLS Work Phone: [facility] 01-19-2025 11:25-0400 Body weight 117.08 kg [employer] Work Phone: [facility] 01-19-2025 11:25-0400 Diastolic blood pressure 76 mm[Hg] Nano Back PA Work Phone: [facility] 01-19-2025 11:25-0400 Systolic blood pressure 118 mm[Hg] [employer] Work Phone: [facility] 01-04-2025 09:42-0400 Body mass index (BMI) [Ratio] 41.22 kg/m2 Mag Samuels [employer] Work Phone: [facility] 01-04-2025 09:42-0400 Body weight 115.85 kg Mag Samuels [employer] Work Phone: [facility] 01-04-2025 09:42-0400 Diastolic blood pressure 74 mm[Hg] Mag Samuels [employer] Work Phone: [facility] 01-04-2025 09:42-0400 Systolic blood pressure 110 mm[Hg] Mag Samuels [employer] Work Phone: [facility] 12-21-2024 10:37-0400 Body mass index (BMI) [Ratio] 41.2 kg/m2 Nano Nazanin PA Work Phone: [facility] 12-21-2024 10:37-0400 Body weight 115.78 kg Nano Nazanin PA Work Phone: [facility] 12-21-2024 10:37-0400 Diastolic blood pressure 80 mm[Hg] Nano Nazanin PA Work Phone: [facility] 12-21-2024 10:37-0400 Systolic blood pressure 116 mm[Hg] Nano Back PA Work Phone: [facility] 11-23-2024 10:50-0400 Body mass index (BMI) [Ratio] 41.13 kg/m2 Robert Janes DO Work Phone: [facility] 11-23-2024 10:50-0400 Body weight 115.58 kg Robert Janes DO Work Phone: [facility] 11-23-2024 10:50-0400 Diastolic blood pressure 80 mm[Hg] Robert Janes DO Work Phone: [facility] 11-23-2024 10:50-0400 Systolic blood pressure 120 mm[Hg] Robert Janes DO Work Phone: [facility] 10-26-2024 13:28-0400 Body mass index (BMI) [Ratio] 41.29 kg/m2 Nano Nazanin PA Work Phone: [facility] 10-26-2024 13:28-0400 Body weight 116.03 kg Nano Back PA Work Phone: [facility] 10-26-2024 13:28-0400 Diastolic blood pressure 70 mm[Hg] Nano Nazanin PA Work Phone: [facility] 10-26-2024 13:28-0400 Systolic blood pressure 108 mm[Hg] Nano [place] PA Work Phone: [facility] 10-05-2024 11:32-0400 Body mass index (BMI) [Ratio] 40.51 kg/m2 Robert Janes DO Work Phone: [facility] 10-05-2024 11:32-0400 Body weight 113.85 kg Robert Janes DO Work Phone: [facility] 10-05-2024 11:32-0400 Diastolic blood pressure 78 mm[Hg] Robert Janes DO Work Phone: [facility] 10-05-2024 11:32-0400 Systolic blood pressure 124 mm[Hg] Robert Janes DO Work Phone: [facility] 09-07-2024 11:13-0400 Body mass index (BMI) [Ratio] 41.08 kg/m2 Robert Janes DO Work Phone: [facility] 09-07-2024 11:13-0400 Body weight 115.44 kg Robert Janes DO Work Phone: [facility] 09-07-2024 11:13-0400 Diastolic blood pressure 80 mm[Hg] Robert Janes DO Work Phone: [facility] 09-07-2024 11:13-0400 Systolic blood pressure 108 mm[Hg] Robert Janes DO Work Phone: [facility] 08-06-2024 15:53-0400 Body mass index (BMI) [Ratio] 41.8 kg/m2 Noms Nurse [facility] 08-06-2024 15:53-0400 Body weight 117.48 kg Nom Nurse [facility] 08-06-2024 15:53-0400 Diastolic blood pressure 84 mm[Hg] Nom Nurse [facility] 08-06-2024 15:53-0400 Systolic blood pressure 118 mm[Hg] Nom Nurse [facility] 01-14-2024 11:48-0400 Body mass index (BMI) [Ratio] 43 kg/m2 Nano MILLS Work Phone: [facility] 01-14-2024 11:48-0400 Body weight 120.84 kg Nano MILLS Work Phone: [facility] 01-14-2024 11:48-0400 Diastolic blood pressure 70 mm[Hg] Nano MILLS Work Phone: [facility] 01-14-2024 11:48-0400 Systolic blood pressure 120 mm[Hg] Nano MILLS Work Phone: [facility] 11-28-2023 08:40-0400 Body mass index (BMI) [Ratio] 44.89 kg/m2 Robert Janes DO Work Phone: [facility] 11-28-2023 08:40-0400 Body weight 126.14 kg Robert Janes DO Work Phone: [facility] 11-28-2023 08:40-0400 Diastolic blood pressure 86 mm[Hg] Robert Janes DO Work Phone: [facility] 11-28-2023 08:40-0400 Systolic blood pressure 132 mm[Hg] Robert Janes DO Work Phone: [facility] 07-18-2021 16:56-0400 Body height 167.64 cm [facility] 07-18-2021 16:56-0400 Body mass index (BMI) [Percentile] Per age and sex 98.9 % [facility] 07-18-2021 16:56-0400 Body mass index (BMI) [Ratio] 44.3 kg/m2 [facility] 07-18-2021 16:56-0400 Body temperature 98.3 [degF] [facility] 07-18-2021 16:56-0400 Body weight 124.6 kg [facility] 07-18-2021 16:56-0400 Diastolic blood pressure 108 mm[Hg] [facility] 07-18-2021 16:56-0400 Heart rate 80 /min [facility] 07-18-2021 16:56-0400 Respiratory rate 18 /min [facility] 07-18-2021 16:56-0400 Systolic blood pressure 162 mm[Hg] [facility] 05-15-2021 19:47-0500 Body height 167.64 cm [facility] 05-15-2021 19:47-0500 Body mass index (BMI) [Percentile] Per age and sex 98.9 % [facility] 05-15-2021 19:47-0500 Body mass index (BMI) [Ratio] 43.7 kg/m2 [facility] 05-15-2021 19:47-0500 Body temperature 98.8 [degF] [facility] 05-15-2021 19:47-0500 Body weight 122.95 kg [facility] 05-15-2021 19:47-0500 Diastolic blood pressure 65 mm[Hg] [facility] 05-15-2021 19:47-0500 Heart rate 75 /min [facility] 05-15-2021 19:47-0500 Respiratory rate 16 /min [facility] 05-15-2021 19:47-0500 SaO2% (BldA) [Mass fraction] 100 % [facility] 05-15-2021 19:47-0500 Systolic blood pressure 144 mm[Hg] [facility] Encounters Encounter Date Encounter Type Care Provider Facility Start: 01-19-2025 End: 01-19-2025 Office outpatient visit 15 minutes Nano MILLS Work Phone: [facility] Comment on above: Third trimester preg margarita ([facility]); 32 weeks gestation of ([facility]); Hematuria, unspecified type Start: 01-19-2025 End: 01-19-2025 ambulatory NANO BACK Not Available Start: 01-04-2025 End: 01-04-2025 Bamboo flowsheet Mag Samuels FURNACE FEEDER Work Phone: [facility] Start: 01-04-2025 End: 01-04-2025 Bamboo flowsheet Mag Samuels FURNACE FEEDER Work Phone: [facility] Start: 01-04-2025 End: 01-04-2025 ambulatory MAG SAMUELS Not Available Start: 01-04-2025 End: 01-04-2025 Office outpatient visit 15 minutes Mag Samuels NP Work Phone: [facility] Comment on above: size inconsist ent with dates ([facility]) (Primary Dx); 30 weeks gestation of ([facility]); Third trimester ([facility]); History of miscarriage; Bipolar 1 disorder, depressed ([facility]); Anxiety, generalized Start: 12-21-2024 End: 12-21-2024 Bamboo flowsheet Nano MILLS Work Phone: [facility] Start: 12-21-2024 End: 12-21-2024 Bamboo flowsheet Nano MILLS Work Phone: [facility] Start: 12-21-2024 End: 12-21-2024 Office outpatient visit 15 minutes Nano MILLS Work Phone: [facility] Comment on above: Third trimester preg margarita ([facility]); 28 weeks gestation of ([facility]) Start: 12-21-2024 End: 12-21-2024 ambulatory NANO BACK Not Available Start: 12-16-2024 Emergency department patient visit ROBERT MARRERO Facility:[facility] Start: 12-13-2024 End: 12-17-2024 Follow-up encounter John DELGADO Work Phone: [facility] Comment on above: Urine Culture Urine, Clean Catch Midstream, Vaginitis Panel PCR, Chlamydia/GC by PCR Tea Swab Start: 12-11-2024 End: 12-14-2024 Telephone encounter Zaida [facility] Start: 12-10-2024 End: 12-10-2024 ambulatory JOHN SALCEDO [facility] Start: 12-10-2024 End: 12-10-2024 ambulatory Lena Rocha Facility:[facility] Start: 12-09-2024 End: 12-09-2024 Clinisync Result Encounter Robert Janes DO Work Phone: [facility] External Department Unsolicited Start: 12-09-2024 End: 12-09-2024 Clinisync Result Encounter Robert Janes DO Work Phone: [facility] Unsolicited Start: 11-23-2024 End: 11-23-2024 Office outpatient visit 15 minutes Robert Janes DO Work Phone: [facility] Comment on above: 24 weeks gestation o f ([facility]); Second trimester ([facility]); History of miscarriage; Diabetes mellitus screening; Urinary tract infection with hematuria, site unspecified; Episode of recurrent major depressive disorder, unspecified depression episode severity ; Bipolar 1 disorder, depressed ([facility]); Anxiety, generalized ; PTSD (post-traumatic stress disorder) [...] on above: 20 weeks gestation o f ([facility]); Second trimester ([facility]) Start: 10-26-2024 End: 10-26-2024 ambulatory NANO BACK Not Available Start: 10-26-2024 End: 10-26-2024 ambulatory ROBERT JANES Not Available Start: 10-15-2024 End: 10-15-2024 Emergency department patient visit [facility] Start: 10-05-2024 End: 10-05-2024 Bamboo flowsheet Robert [...] Comment on above: Second trimester pre gnancy ([facility]); 17 weeks gestation of ([facility]); Well woman exam with routine gynecological exam; Exposure to STD; Need for maternal serum alpha-protein (MSAFP) screening ([facility]); Screening, , for anatomic survey ([facility]); SOB (shortness of breath); Dizziness Start: 10-05-2024 End: 10-05-2024 Patient encounter procedure Robert Janes DO Work Phone: [facility] Start: 09-20-2024 ambulatory FURNACE FEEDER-Shakeel Garzon Fac ility:[facility] Start: 09-07-2024 End: 09-07-2024 Bamboo flowsheet Robert Janes DO Work Phone: [facility] Start: 09-07-2024 End: 09-08-2024 Bamboo flowsheet Robert Janes DO Work Phone: [facility] Start: 09-07-2024 End: 09-08-2024 Clinisync Result Encounter Robert Janes DO Work Phone: [facility] External Department Unsolicited Start: 09-07-2024 End: 09-07-2024 ambulatory ROBERT JANES Not Available Start: 09-07-2024 End: 09-07-2024 Office outpatient visit 15 minutes Robert Janes DO Work Phone: [facility] Comment on above: Constipation, unspec ified constipation type (Primary Dx); First trimester ; 13 weeks gestation of ; Nausea and vomiting in Start: 08-18-2024 End: 08-18-2024 Clinisync Result Encounter Robert Janes DO Work Phone: [facility] External Department Unsolicited Start: 08-18-2024 End: 08-18-2024 Clinisync Result Encounter Robert Janes DO Work Phone: [facility] External Department Unsolicited Start: 08-11-2024 Emergency department patient visit [facility] Facility:[facility] Start: 08-06-2024 End: 08-06-2024 Office outpatient visit 5 minutes [facility] Janes Nurse [facility] Comment on above: GA: 8w4d Start: 08-06-2024 End: 08-06-2024 ambulatory ROBERT JANES Not Available Start: 08-03-2024 End: 08-03-2024 Emergency department patient visit [facility] Start: 07-20-2024 End: 07-20-2024 Emergency department patient visit [facility] Start: 07-03-2024 End: 07-03-2024 Clinisync [...] 06-07-2024 Emergency department patient visit None Provider Facility:[facility] Start: 06-03-2024 ambulatory ROBERT R JANES Facility: [facility] Start: 06-01-2024 End: 06-01-2024 ambulatory None Provider Facility:[facility] Start: 05-30-2024 End: 05-30-2024 Emergency department patient visit [facility] Start: 05-17-2024 End: 05-17-2024 Clinisync [...] 05-01-2024 End: 05-01-2024 Emergency department patient visit [facility] Start: 04-22-2024 End: 04-22-2024 Emergency department patient visit [facility] Start: 04-19-2024 Emergency department patient visit Unlisted Provider Facility:[facility] Start: 03-20-2024 Emergency department patient visit ROBERT R JANES Facility:[facility] Start: 01-28-2024 End: 01-28-2024 ambulatory Errol Martin PAC Facility:[facility] Start: 01-14-2024 End: 01-14-2024 Bamboo flowsheet Nano MILSL Work Phone: [facility] Start: 01-14-2024 End: 01-14-2024 Bamboo flowsheet Nano MILLS Work Phone: [facility] Start: 01-14-2024 End: 01-14-2024 care visit Nano MILLS Work Phone: [facility] Comment on above: 6 weeks f ollow-up Start: 12-06-2023 End: 12-06-2023 Clinisync Result Encounter [...] preg margarita; 38 weeks gestation of Start: 05-17-2023 Clinisync Result Encounter Robert Janes DO Work Phone: [facility] External Department Unsolicited Start: 05-17-2023 Clinisync Result Encounter Robert Janes DO Work Phone: [facility] External Department Unsolicited Start: 05-14-2023 Chart abstracting Robert Janes DO Work Phone: [facility] Start: 05-07-2023 Documentation procedure Leah Hernandez RN [facility] Certified Nurse Indoor Plant Technician - [place] Start: 04-19-2023 Telephone encounter Leah Hernandez RN [facility] Certified Nurse Indoor Plant Technician - [place] Start: 04-17-2023 Telephone encounter Leah Hernandez RN [facility] Certified Nurse Indoor Plant Technician - [place] Start: 04-05-2023 Orders Only Leah Hernandez RN [facility] Certified Nurse Indoor Plant Technician - [place] Comment on above: Nausea and vomiting during (Primary Dx) Start: 08-08-2022 End: 08-09-[address] BALDOMERO ELLER . Facility:[facility] Start: 06-02-2022 End: 06-03-[address] BALDOMERO ELLER . Facility:[facility] Start: 05-18-2022 Encounter for other preprocedural examination DR BALDOMERO ELLER . [facility] Start: 05-17-2022 End: 05-17-[address] [...] DR ANA ARROYO Facility:[facility] Start: 03-29-2022 ambulatory [facility] Facility:[facility] Start: 03-28-2022 End: 03-29-2022 [...] Date Procedure Procedure Detail Performing Clinician Start: 01-19-2025 Urnls dip stick/tabl et rgnt non-auto w/o micrscp Nano MILLS Work Phone: Start: 01-04-2025 Urnls dip stick/tabl et rgnt non-auto w/o micrscp Mag Samuels NP Work Phone: Start: 12-21-2024 Urnls dip stick/tabl et rgnt non-auto w/o micrscp Nano MILLS Work Phone: Start: 12-09-2024 ALL CBC WITH AUTO DIFF Robert Janes DO Work Phone: Start: 11-23-2024 Urnls dip stick/tabl et rgnt non-auto w/o micrscp Robert Janes DO Work Phone: Start: 11-19-2024 [facility] UA (CLEAN/CATCH) DOUGHNUT DOUGH MIXER/MICRO IF IND. Robert Janes DO Work Phone: [...] GDLN Robert Janes DO Work Phone: Start: 10-05-2024 Microscopic observat ion [Identifier] in Cervix by Cyto stain John Salcedo APRN-CN Work Phone: Start: 09-07-2024 ALL RUBELLA IGG [...] Td Vaccines (2 - Td or Tdap) [facility] Start: 10-06-2027 Screening for malign ant neoplasm of cervix Pap Smear [facility] Start: 12-10-2025 Screening for Chlamy driss trachomatis Chlamydia Screening [facility] Start: 10-15-2025 Adult BMI Screening Adult BMI Screen ing [facility] Start: 10-15-2025 Tobacco Screening Tobacco Screening [facility] Start: 06-10-2025 End: 06-10-2025 ambulatory 06/10/2025 1:00 PM EST Initial [facility] [address] [place] [address] [facility] Start: 06-10-2025 End: 06-10-2025 Professional / ancillary services management 06/10/2025 12:30 PM EST Ancillary Procedure [facility] [address] [place] [address] [facility] Start: 02-02-2025 End: 02-02-2025 Patient encounter procedure 02/02/2025 10:20 AM EDT Routine [facility] [address] [place] [phone] Nano Back PA [address] [facility] [place] [address] [facility] Start: 01-04-2025 End: 05-06-2025 US for US OB follow up transabdominal approach Imaging Routine size inconsistent with dates ([facility]) Expected: 01/04/2025, Expires: 05/06/2025 [facility] Work Phone: Comment on above: Expected: 01/04/2025 , Expires: 05/06/2025 Start: 01-04-2025 End: 01-04-2025 Patient encounter procedure 01/04/2025 9:30 AM EDT Routine [facility] [address] [place] [phone] Mag Samuels, CAROL [address] [facility] [place] [phone] [facility] Start: 12-21-2024 End: 12-21-2024 Patient encounter procedure [facility] Comment on above: Arrived Start: 12-07-2024 Influenza vaccination N [facility] Start: 11-23-2024 End: 11-23-2025 CBC panel - Blood by Automated count CBC Lab Routine Diabetes mellitus screening Expected: 11/23/2024 (Approximate), Expires: 11/23/2025 [facility] Work Phone: Comment on above: Expected: 11/23/2024 (Approximate), Expires: 11/23/2025 Start: 11-23-2024 End: 11-23-2025 Measurement of glucose 1 hour after glucose challenge for glucose tolerance test Glucose tolerance, 1 hour Lab Routine Diabetes mellitus screening Expected: 11/23/2024 (Approximate), Expires: 11/23/2025 [facility] Comment on above: Expected: 11/23/2024 (Approximate), Expires: 11/23/2025 Start: 11-23-2024 End: 11-23-2024 Patient encounter procedure [facility] Start: 11-23-2024 End: 11-23-2024 Professional / ancillary services management 11/23/2024 10:30 AM EDT Ancillary Procedure [facility] [address] [place] [phone] [facility] [place] [facility] Start: 10-26-2024 End: 10-26-2024 Professional / ancillary services management 10/26/2024 11:00 AM EDT Ancillary Procedure [facility] [address] [place] [phone] [facility] Start: 10-19-2024 End: 10-19-2024 Patient encounter procedure 10/19/2024 9:00 AM EDT Routine [facility] [address] [place] [phone] Robert Marrero, [address] [place] [address] [facility] Start: 10-05-2024 End: 10-05-2025 12 lead ECG ECG 12 lead unit performed ECG Routine SOB (shortness of breath) Dizziness Expected: 10/05/2024 (Approximate), Expires: 10/05/2025 [facility] Work Phone: Comment on above: Expected: 10/05/2024 (Approximate), Expires: 10/05/2025 Start: 10-05-2024 End: 11-04-2024 Alpha fetoprotein, maternal Alpha fetoprotein, maternal Lab Routine Need for maternal serum alpha-protein (MSAFP) screening [facility]) Expected: 10/05/2024 (Approximate), Expires: 11/04/2024 [facility] Comment on above: Expected: 10/05/2024 (Approximate), Expires: 11/04/2024 Start: 10-05-2024 End: 10-05-2026 Echocardiogram 2D complete Echocardiogram 2D complete Echocardiography Routine SOB (shortness of breath) Dizziness Expected: 10/05/2024 (Approximate), Expires: 10/05/2026 [facility] Comment on above: Expected: 10/05/2024 (Approximate), Expires: 10/05/2026 Start: 10-05-2024 End: 01-05-2025 US for US OB 14+ weeks anatomy scan Imaging Routine Screening, , for anatomic survey ([facility]) Expected: 10/05/2024, Expires: 01/05/2025 [facility] Comment on above: Expected: 10/05/2024 , Expires: 01/05/2025 Start: 10-05-2024 End: 10-05-2024 Patient encounter procedure 10/05/2024 11:10 AM EDT Routine [facility] [address] [phone] Robert Marrero, DO [address] [place] [address] [facility] Start: 09-07-2024 End: 09-07-2024 Patient encounter procedure 09/07/2024 10:50 AM EDT Routine [facility] [address] [place] [phone] Robert Marrero, DO [address] [place] [address] [facility] Start: 08-06-2024 End: 08-06-2025 ABO/Rh ABO/Rh Lab Routine Missed menses , unspecified gestational age Expected: 08/06/2024 (Approximate), Expires: 08/06/2025 [facility] Comment on above: Expected: 08/06/2024 (Approximate), Expires: 08/06/2025 Start: 08-06-2024 End: 08-06-2025 Blood type and Indirect antibody screen panel - Blood Type and screen Lab Routine Missed menses , unspecified gestational age Expected: 08/06/2024 (Approximate), Expires: 08/06/2025 [facility] Comment on above: Expected: 08/06/2024 (Approximate), Expires: 08/06/2025 Start: 08-06-2024 End: 08-06-2025 Drugs of abuse panel - Urine by Screen method Rapid drug screen, urine Lab Routine , unspecified gestational age Encounter for supervision of normal first in first trimester Expected: 08/06/2024 (Approximate), Expires: 08/06/2025 [facility] Comment on above: Expected: 08/06/2024 (Approximate), Expires: 08/06/2025 Start: 07-31-2024 End: 10-30-2024 US Pelvis transvaginal US OB transvaginal Imaging Routine Missed menses Expected: 07/31/2024, Expires: 10/30/2024 [facility] Work Phone: Comment on above: Expected: 07/31/2024 , Expires: 10/30/2024 Start: 03-05-2024 Adult BMI Screening Adult BMI Screen ing [facility] Start: 03-05-2024 Tobacco Screening Tobacco Screening [facility] Start: 01-14-2024 End: 01-14-2024 Patient encounter procedure 01/14/2024 11:30 AM EDT Office Visit [facility] [address] [place] [phone] Nano Back PA [address] [facility] [place] [address] Arrived [facility] Comment on above: Arrived Start: 12-08-2023 Influenza vaccination Influenza Vacc ine (#1) [facility] Start: 11-28-2023 End: 11-28-2023 Patient encounter procedure 11/28/2023 8:30 AM EDT Routine [facility] [address] [place] [phone] Robert Marrero DO [address] [facility] [address] [place], [place] [phone] Arrived [facility] Comment on above: Arrived Start: 09-26-2023 Screening for Chlamy driss trachomatis Chlamydia Screening [facility] Start: 06-03-2023 End: 06-03-2023 Patient encounter procedure 06/03/2023 2:10 PM EST Routine [facility] [address] [place] [phone] Robert Marrero, DO [address] [facility] [place] [address] [facility] Start: 04-17-2023 End: 04-17-2023 ambulatory 04/17/2023 8:30 AM EST Initial [facility] Certified Nurse Indoor Plant Technician - [place] [address] [facility] [address] [place] [address] [facility] Certified Nurse Indoor Plant Technician - [place] Start: 12-07-2022 Influenza vaccination Influenza Vacc ine [facility] Start: 2022 Screening for malign ant neoplasm of cervix Pap Smear [facility] Start: 07-18-2021 X-ray of left ankle XR ankle LT min 3V* [facility] Start: 07-18-2021 X-ray of left foot XR foot LT min 3V * [facility] Start: 10-08-2019 Adult BMI Follow Up Plan Adult BMI F ollow Up Plan [facility] Start: 2013 Depression Screening Depression Scre ening [facility] Bacteria identified in Urine by Culture Urine culture Microbiology Routine Missed menses Ordered: 08/06/2024 [facility] Comment on above: Ordered: 08/06/2024 Bacteria identified in Urine by Culture Urine culture Microbiology Routine Urinary tract infection with hematuria, site unspecified Ordered: 11/23/2024 [facility] Comment on above: Ordered: 11/23/2024 Bacteria identified in Urine by Culture Urine culture Microbiology Routine Hematuria, unspecified type Ordered: 01/19/2025 [facility] Work Phone: Comment on above: Ordered: 01/19/2025 CBC W Auto Different ial panel - Blood CBC and differential Lab Routine Missed menses , unspecified gestational age Ordered: 08/06/2024 [facility] Comment on above: Ordered: 08/06/2024 CHLAMYDIA TRACHOMATI S (GENITO/STI) CHLAMYDIA TRACHOMATIS (GENITO/STI) Lab Routine Exposure to STD Ordered: 10/05/2024 [facility] Comment on above: Ordered: 10/05/2024 Cytology Cervical or vaginal smear or scraping study Pap Smear Pathology and Cytology Routine Well woman exam with routine gynecological exam Ordered: 10/05/2024 [facility] Comment on above: Ordered: 10/05/2024 Hemoglobin A1c/Hemoglobin.total in Blood Hemoglobin A1c Lab Routine Missed menses , unspecified gestational age Ordered: 08/06/2024 [facility] Comment on above: Ordered: 08/06/2024 Hepatitis B virus surface Ag [Presence] in Serum or Plasma by Immunoassay Hepatitis B surface antigen Lab Routine Missed menses , unspecified gestational age Ordered: 08/06/2024 [facility] Comment on above: Ordered: 08/06/2024 Hepatitis C virus Ab [Presence] in Serum or Plasma by Immunoassay Hepatitis C antibody Lab Routine Missed menses , unspecified gestational age Ordered: 08/06/2024 [facility] Comment on above: Ordered: 08/06/2024 HIV-1/HIV-2 antigen/antibody combination immunoassay HIV-1 and HIV-2 antibodies Lab Routine Missed menses , unspecified gestational age Ordered: 08/06/2024 [facility] Comment on above: Ordered: 08/06/2024 Neisseria gonorrhoea e DNA [Presence] in Unspecified specimen by MILY with probe detection Neisseria gonorrhea DNA probe, direct Lab Routine Exposure to STD Ordered: 10/05/2024 [facility] Comment on above: Ordered: 10/05/2024 Patient Education [facility] Work Phone: Patient referral [facility] Work Phone: Reagin Ab [Presence] in Serum by RPR RPR Lab Routine Missed menses , unspecified gestational age Ordered: 08/06/2024 [facility] Comment on above: Ordered: 08/06/2024 Rubella antibody, IgG Rubella an tibody, IgG Lab Routine Missed menses , unspecified gestational age Ordered: 08/06/2024 [facility] Comment on above: Ordered: 08/06/2024 SURESWAB(R) ADVANCED VAGINITIS PLUS, TMA SURESWAB(R) ADVANCED VAGINITIS PLUS, TMA Pathology and Cytology Routine Exposure to STD Ordered: 10/05/2024 [facility] Work Phone: Comment on above: Ordered: 10/05/2024 US Pelvis transvaginal US OB tra nsvaginal Imaging Routine Missed menses 08/06/2024 1:33 PM EDT [facility] Payers Date Payer Category Payer Medicaid (Managed Care) [employer] [id number] 2002 Medicaid [id number] 2002 Medicaid [place] [employer] [id number] 2001 Unknown [id number] 2.16.840.1.401342.3.579.2. 593 2001 Unknown [id number] 2.16.840.1.132525.3.579.2. 593 2001 Unknown [id number] 2.16.840.1.830615.3.579.2. 593 2001 Unknown [id number] 2.16.840.1.794413.3.579.2. 593 2001 Unknown [id number] 2.16.840.1.739293.3.579.2. 593 2001 Unknown [id number] 2.16.840.1.880410.3.579.2. 593 2001 Unknown [id number] 2.16.840.1.115258.3.579.2. 593 2001 Unknown [id number] 2.16.840.1.702337.3.579.2. 593 2001 Unknown [id number] 2.16.840.1.508443.3.579.2. 593 2001 Unknown [id number] 2.16.840.1.276599.3.579.2. 593 2001 Unknown [id number] 2.16.840.1.226176.3.579.2. 593 2001 Unknown [id number] 2.16.840.1.483947.3.579.2. 1286 2001 Unknown [id number] 2.16.840.1.275230.3.579.2. 1286 2001 Unknown [id number] 2.16.840.1.314523.3.579.2. 1286 2001 Unknown [id number] 2.16.840.1.843076.3.579.2. 1286 2001 Unknown [id number] 2.16.840.1.645266.3.579.2. 1286 2001 Unknown [id number] 2.16.840.1.209634.3.579.2. 1286 2001 Unknown [id number] 2.16.840.1.389075.3.579.2. 1286 2001 Unknown [id number] 2.16.840.1.147163.3.579.2. 2001 Unknown [id number] 2.16.840.1.520397.3.579.2. 2001 Unknown [id number] 2.16840.1.789213.3.579.2. 2001 Unknown [id number] 2.16.840.1.118255.3.579.2. 2001 Unknown [id number] 2.16840.1.086374.3.579.2. 2001 Unknown [id number] 2.16840.1.273993.3.579.2. 2001 Unknown [id number] 2.16840.1.055476.3.579.2. 2001 Unknown [id number] 2.16840.1.620381.3.579.2. 2001 Unknown [id number] 2.16840.1.006826.3.579.2. 2001 Unknown [id number] 2.16840.1.994998.3.579.2. 2001 Unknown [id number] 2.16840.1.298004.3.579.2. 1258 2001 Unknown [id number] 2.16840.1.543610.3.579.2. 1258 2001 Unknown [id number] 2.16840.1.390922.3.579.2. 1258 2001 Unknown [id number] 2.16840.1.505014.3.579.2. 1258 2001 Unknown [id number] 2.16840.1.895896.3.579.2. 1258 2001 Unknown [id number] 2.16.840.1.058650.3.579.2. 1259 2001 Unknown [id number] 2.16.840.1.076715.3.579.2. 9 2001 Unknown [id number] 2.16.840.1.417525.3.579.2. 9 2001 Unknown [id number] 2.16.840.1.975008.3.579.2. 9 2001 Unknown [id number] 2.16.840.1.100799.3.579.2. 9 2001 Unknown [id number] 2.16.840.1.324129.3.579.2. 9 2001 Unknown [id number] 2.16.840.1.889259.3.579.2. 1259 1959 Unknown [id number] Self-pay Self Pay [id number] Social History Date Type Detail Facility Start: 07-18-2021 End: 09-17-2023 Tobacco smoking status NHIS Never smoked tobacco (finding) [facility] Start: 2001 Sex Assigned At Female [facility] Start: 05-14-2023 Alcohol intake Lifetime non-drinker (finding) [facility] Start: 03-20-2023 [facility] Start: 05-01-2023 Gender identity Identifies as female gender (finding) [facility] Start: 05-01-2023 Sexual orientation Heterosexual (finding) [facility] Start: 05-14-2023 End: 11-23-2024 History of Social function [facility] Start: 05-14-2023 End: 11-23-2024 Tobacco use panel [facility] Start: 08-01-2022 End: 09-17-2023 Tobacco use and exposure Smokeless tobacco non-user [facility] Start: 01-03-2024 End: 01-19-2025 Alcoholic beverage intake Ex-drinker (finding) [facility] History of tobacco use Passive smoker [facility] Start: 06-20-2022 Housing Instability Unknown [facility] Start: 08-14-2022 Alcohol Comment social [facility] Start: 2001 Sex Assigned At Not on file [facility] Start: 11-11-2014 Sex Female (finding) [facility] Start: 07-30-2023 Sexual orientation Bisexual (finding) [facility] Functional Status Date Assessment Result Facility 11-23-2024 Patient Health Quest ionnaire 2 item (PHQ-2) [Reported] [facility] 11-23-2024 PHQ-9 quick depressi on assessment panel [Reported.PHQ] [facility] 2024 Patient Health Quest ionnaire 2 item (PHQ-2) [Reported] [facility] Clinical Notes 04-17-2023 to 01-19-2025 GENE Gutierrez - 01/19/2025 11:20 AM ROBERTOTMag Samuels NP - 01/04/2025 9:30 AM GENE Worthy - 12/21/2024 10:30 AM EDTTelephone Encounter - Alberta Mendez CMA - 12/13/2024 8:28 PM EDT Note Date & Type Note Facility 01-19-2025 History of Presen t illness Narrative Reason for Appointment: Patient ID: Lia Desai is a 24 y.o. female who presents for Routine Visit Patient presents today for Return OB appointment. MEDICATIONS Current Outpatient Medications Medication Instructions escitalopram (LEXAPRO) 20 mg, Oral, Daily 27-1 MG tablet 1 tablet, Daily ALLERGIES Allergies[1] PROBLEMS Active Ambulatory Problems Diagnosis Date Noted 38 weeks gestation of ([facility]) 11/28/2023 Resolved Ambulatory Problems Diagnosis Date Noted No Resolved Ambulatory Problems Past Medical History: Diagnosis Date Bacterial vaginosis Chlamydia Depression Family history of breast cancer Family history of uterine cancer HISTORY PAST MEDICAL HISTORY SOCIAL HISTORY Medical History[2] Social History Tobacco Use Smoking status: Never Smokeless tobacco: Never Substance Use Topics Alcohol use: Not Currently Alcohol/week: 3.0 standard drinks of alcohol Types: 3 Standard drinks or equivalent per week Drug use: Not Currently Types: Marijuana FAMILY HISTORY Family History[3] SURGICAL HISTORY Surgical History[4] REVIEW OF SYSTEMS Review of Systems: Review [...] reviewed. Vitals: Estimated body mass index is 41.66 kg/m as calculated from the following: Height as of 08/08/22: 5' 6 . Weight as of this encounter: 258 lb 1.9 oz. BP: 118/76 No LMP recorded (lmp unknown). Patient is . ASSESSMENT & PLAN ICD-10-CM 1. Third trimester ([facility]) Z34.93 2. 32 weeks gestation of ([facility]) Z3A.32 POCT urinalysis dipstick manually resulted 3. Hematuria, unspecified type R31.9 Urine culture CANCELED: Urine culture Return OB: Patient presents today for a routine obstetrics appointment. Patient is currently 32w2d . Patient states she is doing well but has complaints of being tired due to current . Patient has verbalizes frequent movement. labor precautions was discussed/given and patient was instructed to perform kick counts three times a day. Orders Placed This Encounter Procedures Urine culture POCT urinalysis dipstick manually resulted Follow Up: Patient is to return to office in 2 week for routine OB appointment. Documented by GENE Gutierrez on behalf of: GENE Gutierrez [1] Allergies Allergen Reactions Azithromycin Macrolides And Ketolides Unknown Metronidazole GI intolerance Other Reaction(s): Vomiting Wound Dressing Adhesive [2] Past Medical History: Diagnosis Date Bacterial vaginosis Chlamydia Depression Family history of breast cancer Family history of uterine cancer [3] Family History Problem Relation Name Age of Onset No Known Problems Father Cancer Mother's Sister Cancer Mother Rachelle [4] Past Surgical History: Procedure Laterality Date DILATION AND CURETTAGE OF UTERUS TONSILLECTOMY 2012 documented in this encounter [facility] 01-04-2025 History of Presen t illness Narrative Reason for Appointment: Patient ID: Lia Desai is a 24 y.o. female who presents for Routine Visit Patient presents today for Return OB appointment. MEDICATIONS Current Outpatient Medications Medication Instructions escitalopram (LEXAPRO) 10 mg, Oral, Daily 27-1 MG tablet 1 tablet, Daily ALLERGIES Allergies Allergen Reactions Azithromycin Macrolides And Ketolides Unknown Metronidazole GI intolerance Other Reaction(s): Vomiting Wound Dressing Adhesive PROBLEMS Active Ambulatory Problems Diagnosis Date Noted 38 weeks gestation of ([facility]) 11/28/2023 Resolved Ambulatory Problems Diagnosis [...] nursing note reviewed. Exam conducted with a supervisor heading present. Vitals: Estimated body mass index is 41.22 kg/m as calculated from the following: Height as of 08/08/22: 5' 6 . Weight as of this encounter: 255 lb 6.4 oz. BP: 110/74 No LMP recorded (lmp unknown). Patient is . ASSESSMENT & PLAN ICD-10-CM 1. 30 weeks gestation of ([facility]) Z3A.30 POCT urinalysis dipstick manually resulted 2. Third trimester ([facility]) Z34.93 POCT urinalysis dipstick manually resulted 3. History of miscarriage Z87.59 4. Bipolar 1 disorder, depressed ([facility]) F31.9 5. Anxiety, generalized F41.1 Return OB: Patient presents today for a routine obstetrics appointment. Patient is currently 30w1d . Patient states she is doing well but has complaints of being tired due to current . Patient has verbalizes frequent movement. labor precautions was discussed/given and patient was instructed to perform kick counts three times a day. Patient Lexapro was increased at this visit. Orders Placed This Encounter Procedures POCT urinalysis dipstick manually resulted Follow Up: Patient is to return to office in 2 week for routine OB appointment. Documented by Margi Marie LPN on behalf of: Mag Samuels NP documented in this encounter [facility] 12-21-2024 History of Presen t illness Narrative Reason for Appointment: Patient ID: Lia Desai is a 24 y.o. female who presents for Routine Visit Patient presents today for Return OB appointment. MEDICATIONS Current Outpatient Medications Medication Instructions escitalopram (LEXAPRO) 10 mg, Oral, Daily 27-1 MG tablet 1 tablet, Daily ALLERGIES Allergies Allergen Reactions Azithromycin Macrolides And Ketolides Unknown Metronidazole GI intolerance Other Reaction(s): Vomiting Wound Dressing Adhesive PROBLEMS Active Ambulatory Problems Diagnosis Date Noted 38 weeks gestation of ([facility]) 11/28/2023 Resolved Ambulatory Problems Diagnosis [...] reviewed. Vitals: Estimated body mass index is 41.2 kg/m as calculated from the following: Height as of 08/08/22: 5' 6 . Weight as of this encounter: 255 lb 4 oz. BP: 116/80 No LMP recorded (lmp unknown). Patient is . ASSESSMENT & PLAN ICD-10-CM 1. Third trimester ([facility]) Z34.93 POCT urinalysis dipstick manually resulted 2. 28 weeks gestation of ([facility]) Z3A.28 Return OB: Patient presents today for a routine obstetrics appointment. Patient is currently 28w1d . Patient states she is doing well but has complaints of being tired due to current . Patient has verbalizes frequent movement. labor precautions was discussed/given and patient was instructed to perform kick counts three times a day. Orders Placed This Encounter Procedures POCT urinalysis dipstick manually resulted Follow Up: Patient is to return to office in 2 week for routine OB appointment. Documented by GENE Gutierrez on behalf of: GENE Gutierrez documented in this encounter [facility] 12-16-2024 Note Education Materials Pulmonary Medicine Acute Bronchitis, [...] or stops coughing (cough suppressant). It is not common to take an antibiotic medicine for this condition. Follow these instructions at home: ? Take qpfb-mxq-pgewgid and prescription medicines only as told by [...] and water are not available, use hand transfer clerk. ? Avoid contact with people who [...] is easier to cough up. ? Take kycb-erx-drbsptp a (more content not included)... [facility] 12-13-2024 Miscellaneous Notes Patient returned phone call. Advised patient of results per John's result note. Patient verbalized understanding. documented in this encounter [facility] 12-13-2024 Telephone encounter Note Patient returned phone call. Advised patient of results per John's result note. Patient verbalized understanding. [facility] 12-11-2024 Telephone encounter Note Pt called in stating seen at [facility] ER due to pain. Indoor Plant Technician their told her she possibly has kidney stones. Per state assessed properties director pt needs to discuss with dr. Marrero to see what he would like to do. Advised pt that Janes not in office today but will send message to get his thoughts. Please advise [facility] 12-11-2024 Miscellaneous Notes Pt called in stating seen at [facility] ER due to pain. Indoor Plant Technician their told her she possibly has kidney stones. Per state assessed properties director pt needs to discuss with dr. Marrero to see what he would like to do. Advised pt that Janes not in office today but will send message to get his thoughts. Please advise documented in this encounter [facility] 12-10-2024 Note Patient Education Ma terials Follows:Disease Upper Respiratory Infection, An upper respiratory infection (URI) is a common infection of the nose, throat, and upper air passages that lead to the lungs. It is caused by a virus. The most common type of URI is the common cold. URIs usually get better on their own, without medical treatment. URIs in babies may last longer than they do in adults. What are the causes? A URI is caused by a virus. Your baby may catch a virus by: ? Breathing in droplets from an infected person's cough or sneeze. ? Touching something that has been exposed to the virus (is contaminated) and then touching the mouth, nose, or eyes. What increases the risk? Your baby is more likely to get a URI if: ? Your baby is exposed to tobacco smoke. ? Your baby has close contact with other children, such as at child attendant or daycare. ? Your baby has: ? A weakened disease-fighting system (immune system). Babies who are born early (prematurely) may have a weakened immune system. ? Certain allergic disorders. What are the signs or symptoms? If your baby has a URI, he or she may have some of the following symptoms: ? Runny or stuffy (congested) nose. This may cause difficulty with sucking while feeding. ? Cough or sneezing. ? Ear pain. ? Fever. ? Decreased activity. ? Sleeping less than usual. ? Poor appetite. ? Fussy behavior. How is this diagnosed? This condition may be diagnosed based on your baby's medical history and symptoms, and a physical exam. Your baby's health care provider may use a swab to take a mucus sample from the nose (nasal swab). This sample can be tested to determine what virus is causing the illness. How is this treated? URIs usually get better on their own within 7?10 days. You can take steps at home to relieve your baby's symptoms. Medicines or antibiotics cannot cure URIs. Babies with URIs are not usually treated with medicine. Follow these instructions at home: Medicines ? Give your baby kzzv-qsf-amgajsn and prescription medicines only as told by your baby's health care provider. ? Do not give your baby cold medicines. These can have serious side effects for children younger than 6 years of age. ? Talk with your baby's health care provider: ? Before you give your child any new medicines. ? Before you try any home remedies such as herbal treatments. ? Do not give your baby aspirin because of the association with Henok's syndrome. Relieving symptoms ? Use owiq-rpj-tfynbnd or homemade saline nasal drops, which are made of salt and water, to help relieve congestion. Put 1 drop in each nostril as often as needed. ? Do not use nasal drops that contain medicines unless your baby's health care provider tells you to use them. ? To make saline nasal drops, completely dissolve ??1 tsp (3?6 g) of salt in 1 cup (237 mL) of warm water. ? Use a bulb syringe to suction mucus out of your baby's nose periodically. Do this after putting saline nose drops in the nose. Put a saline drop into one nostril, wait for 1 minute, and then suction the nose. Then do the same for the other nostril. ? Use a cool-mist humidifier to add moisture to the air. This can help your baby breathe more easily. General instructions ? If needed, clean your baby's nose gently with a moist, soft cloth. Before cleaning, put a few drops of saline solution around the nose to wet the areas. ? Offer your baby fluids as recommended by your baby's health care provider. Make sure your baby drinks enough fluid so he or she urinates as much and as often as usual. ? If your baby has a fever, keep him or her home from daycare until the fever is gone. ? Keep your baby away from secondhand smoke. ? Make sure your baby gets all recommended immunizations, including the yearly (annual) flu vaccine if older than 6 months. ? Keep all follow-up visits. This is important. How to prevent the spread of infection to others URIs can be passed from person to person (are contagious). To prevent the infection from spreading: ? Wash your hands with soap and water for at least 20 seconds, especially before and after you touch your baby. If soap and water are not available, use hand transfer clerk. Other caregivers should also wash their hands often. ? Do not touch your hands to your mouth, face, eyes, or nose. Contact a health care provider if: ? Your baby's symptoms last longer than 10 days. ? Your baby has difficulty feeding, drinking, or eating. ? Your baby eats less than usual. ? Your baby wakes up at night crying. ? Your baby pulls at one ear or both ears. This may be a sign of an ear infection. ? Your baby's fussiness is not soothed with cuddling or eating. ? Your baby has fluid coming from one ear or eye, or both ears or eyes. ? Your baby shows signs of a sore throat. ? Your baby's cough causes vomiting. ? Your baby is younger than 1 month old and has a cough. ? Your baby develops a (more content not included)... [facility] 11-23-2024 History of Presen t illness Narrative [...] Diagnosis Date Noted 38 weeks gestation of ([facility]) 11/28/2023 Resolved Ambulatory Problems Diagnosis [...] PLAN ICD-10-CM 1. 24 weeks gestation of ([facility]) Z3A.24 POCT urinalysis dipstick manually resulted 2. Second trimester ([facility]) Z34.92 POCT urinalysis dipstick manually resulted 3. [...] Robert Marrero DO documented in this encounter [facility] 10-26-2024 History of Presen t illness Narrative [...] Diagnosis Date Noted 38 weeks gestation of ([facility]) 11/28/2023 Resolved Ambulatory Problems Diagnosis [...] PLAN ICD-10-CM 1. 20 weeks gestation of ([facility]) Z3A.20 POCT urinalysis dipstick manually resulted 2. Second trimester ([facility]) Z34.92 POCT urinalysis dipstick manually resulted Return [...] of: GENE Gutierrez documented in this encounter [facility] 10-15-2024 Note XR CHEST 1 VW History: Near syncope Procedure: Chest AP portable upright Comparison: 04/22/2024 Findings: The heart and lungs show no acute findings, and the mediastinum and anushka are grossly negative . No pneumothorax. Impression: No acute pulmonary process. Finalized by Angela Baker MD on 10/15/2024 1:51 PM [facility] 10-05-2024 History of Presen t illness Narrative [...] Diagnosis Date Noted 38 weeks gestation of ([facility]) 11/28/2023 Resolved Ambulatory Problems Diagnosis [...] nursing note reviewed. Exam conducted with a supervisor heading present. Vitals: Estimated body mass index is 40.51 kg/m as calculated from the following: Height as of 08/08/22: 5' 6 . Weight as of this encounter: 251 lb. BP: 124/78 No LMP recorded (lmp unknown). Patient is . ASSESSMENT & PLAN ICD-10-CM 1. Second trimester ([facility]) Z34.92 POCT urinalysis dipstick manually resulted 2. 17 weeks gestation of ([facility]) Z3A.17 3. Well woman exam with routine gynecological exam Z01.419 Pap Smear 4. Exposure to STD Z20.2 SURESWAB(R) ADVANCED VAGINITIS PLUS, TMA CHLAMYDIA TRACHOMATIS (GENITO/STI) Neisseria gonorrhea DNA probe, direct 5. Need for maternal serum alpha-protein (MSAFP) screening ([facility]) Z36.1 Alpha fetoprotein, maternal Alpha fetoprotein, maternal 6. Screening, , for anatomic survey ([facility]) Z36.89 US OB 14+ weeks anatomy [...] appointment and reevaluation of symptoms. Documented by Mag Samuels NP on behalf of: Robert Marrero DO documented in this encounter [facility] 09-20-2024 Note Patient Education Ma terials Follows:Disease [...] to help relieve symptoms, such as: ? Gdhu-urh-pesbcjw cold medicines. ? Medicines to reduce coughing [...] other clear broths. General instructions ? Take wcxn-wek-drfewie and prescription medicines only as told by [...] cannot use soap and water, use hand transfer clerk. ? Avoid touching your mouth, face, [...] get better within 7?10 days. ? Take iyoe-gtv-ekcuepg and prescription medicines only as told by your doctor. This information is not intended to replace advice given to (more content not included)... [facility] 09-07-2024 History of Presen t illness Narrative [...] History: Diagnosis Date Bacterial vaginosis Chlamydia Depression ([facility]) Family history of breast cancer Family history of uterine cancer HISTORY PAST MEDICAL HISTORY SOCIAL HISTORY Past Medical History: Diagnosis Date Bacterial vaginosis Chlamydia Depression ([facility]) Family history of breast cancer Family history [...] nursing note reviewed. Exam conducted with a supervisor heading present. Vitals: Estimated body mass index is [...] week for routine OB appointment. Documented by Mag Samuels NP on behalf of: Robert Marrero DO documented in this encounter [facility] 08-11-2024 Note Education Materials Obstetrics and Gynecology [...] provider. ? Do not use any prescription, rtmx-dgq-cbtxojr, or herbal medicines for morning sickness without [...] to throw up. Foods to avoid ? [place] foods. ? Fatty foods. ? Spicy [...] body to make you feel better. ? [place] your teeth after throwing up or rinse [...] provider. Document Revised: 12/26/2023 Document Reviewed: 07/04/2023 [employer] Patient Education ? 2023 [employer]. [facility] 08-06-2024 History of Presen t illness Narrative [...] History: Diagnosis Date Bacterial vaginosis Chlamydia Depression ([facility]) Family history of breast cancer Family history [...] or undercooked meat, and stay away from [facility]. Patient has also been advised to [...] Zaida Tavares MA documented in this encounter [facility] 06-07-2024 Note Education Materials Orthopedics Flank Pain, [...] as told by your doctor. ? Take yzvb-rrg-gmhzodn and prescription medicines only as told by [...] provider. Document Revised: 06/05/2021 Document Reviewed: 06/05/2021 [employer] Patient Education ? [facility]23 [facility] Note Education Materials Infectious Disease [...] doctor may want you to: ? Take ebpm-yxy-ncowwnx medicines. ? Drink plenty of fluids. The [...] Applesauce. ? Rice. ? Lean meats. ? [place]. ? Crackers. ? Do not eat or drink: ? Fluids that have a lot of sugar or caffeine. ? Alcohol. ? Spicy or fatty foods. General instructions ? Take swut-boo-dyrtkgy and prescription medicines only as told by [...] use soap and water, use alcohol-based hand transfer clerk. ? Keep all follow-up visits. How is [...] hospital. Summary ? (more content not included)... [facility] 03-20-2024 Note Education Materials Obstetrics and Gynecology [...] these instructions at home: Medicines ? Take bqxq-osp-feblunj and prescription medicines as told by your [...] for Disease Control and Prevention: www.cdc.gov ? [employer]: www.ashastd.org ? Office on [...] Reviewed: 09/22/2020 Elsevier Patient Education ? 2023 [employer]. Orthopedics Acute Back Pain, Adult Acute back pain is sudden and usually short-lived. It is often caused by an injury to the muscles and tissues in the back. The injury may resul (more content not included)... [facility] 01-28-2024 Note Patient Education Ma terials Follows:Disease [...] to help relieve symptoms, such as: ? Wbqr-yrs-imfiyuw cold medicines. ? Cough suppressants. Coughing is [...] other clear broths. General instructions ? Take andq-ati-ybaahjc and prescription medicines only as told by [...] and water are not available, use hand transfer clerk. ? Avoid touching your mouth, face, [...] symptoms may (more content not included)... [facility] 01-14-2024 History of Presen t illness Narrative [...] History: Diagnosis Date Bacterial vaginosis Chlamydia Depression ([facility]) Family history of breast cancer Family history of uterine cancer HISTORY PAST MEDICAL HISTORY SOCIAL HISTORY Past Medical History: Diagnosis Date Bacterial vaginosis Chlamydia Depression ([facility]) Family history of breast cancer Family history [...] nursing note reviewed. Exam conducted with a supervisor heading present. Vitals: Estimated body mass index is [...] of: GENE Gutierrez documented in this encounter [facility] 11-28-2023 History of Presen t illness Narrative [...] History: Diagnosis Date Bacterial vaginosis Chlamydia Depression ([facility]) Family history of breast cancer Family history [...] nursing note reviewed. Exam conducted with a supervisor heading present. Vitals: Estimated body mass index is [...] Robert Marrero DO documented in this encounter [facility] 05-07-2023 History of Presen t illness Narrative Letter sent to patient via mal and also to her My Chart regarding her missed OB intake appointment and also her MICHAEL for her Chlamydia. documented in this encounter [facility] 04-19-2023 Miscellaneous Notes Called patient to reschedule her IOB intake visit. No answer. Left message to call office to reschedule her appointment. documented in this encounter [facility] 04-19-2023 Telephone encounter Note Called patient to reschedule her IOB intake visit. No answer. Left message to call office to reschedule her appointment. [facility] 04-17-2023 Miscellaneous Notes Patient called for her OB intake per phone. No answer. Left message to call office. documented in this encounter [facility] 04-17-2023 Telephone encounter Note Patient called for her OB intake per phone. No answer. Left message to call office. [facility] Evaluation note No assessment inform ation [facility] Work Phone: Evaluation note Diagnosis 6 weeks follow-up documented in this encounter [facility]* Diagnosis Third trimester state, incidental 38 weeks gestation of documented in this encounter [facility]* Diagnosis Nausea and vomiting during - Primary [facility] Diagnosis Missed menses , unspecified gestational age Encounter for supervision of normal first in first trimester [facility] Diagnosis Constipation, unspecified constipation type- Primary First trimester state, incidental 13 weeks gestation of Nausea and vomiting in Unspecified vomiting of , unspecified as to episode of care [facility] Diagnosis Second trimester ([facility]) state, incidental 17 weeks gestation of ([facility]) Well woman exam with routine gynecological exam Routine gynecological examination Exposure to STD Need for maternal serum alpha-protein (MSAFP) screening ([facility]) Screening, , for anatomic survey ([facility]) Encounter for anatomic survey SOB (shortness of breath) Shortness of breath Dizziness Dizziness and giddiness [facility] Diagnosis 20 weeks gestation of ([facility]) Second trimester ([facility]) state, incidental [facility] Diagnosis 24 weeks gestation of ([facility]) Second trimester ([facility]) state, incidental History of miscarriage Personal history of other genital system and obstetric disorders Diabetes mellitus screening Screening for diabetes mellitus Urinary tract infection with hematuria, site unspecified Episode of recurrent major depressive disorder, unspecified depression episode severity Bipolar 1 disorder, depressed (HCC) Anxiety, generalized PTSD (post-traumatic stress disorder) Posttraumatic stress disorder [facility] Diagnosis Third trimester ([facility]) state, incidental 28 weeks gestation of ([facility]) [facility] Diagnosis size inconsistent with dates ([facility])- Primary 30 weeks gestation of ([facility]) Third trimester ([facility]) state, incidental History of miscarriage Personal history of other genital system and obstetric disorders Bipolar 1 disorder, depressed (HCC) Anxiety, generalized [facility] Diagnosis Third trimester ([facility]) state, incidental 32 weeks gestation of ([facility]) Hematuria, unspecified type documented in this encounter [facility] HealthcareInstructionsNot on filedocumented in this encounterProMediOhio[facility] SystemInstructionsNot on filedocumented in this encounterProMediOhio[facility] Chief Complaint and Reason for Visit Chief Complaint right knee pain Lt foot/ankle injury fell down stairs Advance Directives No Advanced Directives Records Found Advance Directive Response Recorded Date/ Time Advance Directives No May 15, 2021 9:11pm Date Activated Date Inactivated Comments 07/30/2023 4:35 PM 07/30/2023 7:06 PM Summary Purpose Family History No Family History [...] Dates NON STAFF Primary Care Provider Active Cnc Milling Machine Operator Relationship Specialty Start Date End Date Nano Back PA [address] [place], [place] [phone] [facility] 01/07/24 Cnc Milling Machine Operator Relationship Specialty Start Date End Date [facility] [address] [place], [place] PCP - General Family Medicine 08/11/18 Cnc Milling Machine Operator Relationship Specialty Start Date End Date [facility] [address] [place], [place] PCP - General Family Medicine 08/11/18 Cnc Milling Machine Operator Relationship Specialty Start Date End Date [facility] [address] [place], [place] PCP - General Family Medicine 08/11/18 Cnc Milling Machine Operator Relationship Specialty Start Date End Date Nano Back PA [address] [place], [place] [phone] [facility] 01/07/24 Cnc Milling Machine Operator Relationship Specialty Start Date End Date Nano Back PA [address] [place], [place] [phone] PCP [facility] 01/07/24 Cnc Milling Machine Operator Relationship Specialty Start Date End Date Nano Back PA [address] [place] [address] [place] [address] PCP [facility] 01/07/24 Cnc Milling Machine Operator Relationship Specialty Start Date End Date Nano Back PA [address] [place] [address] Dr [place], [facility] PCP [facility] 01/07/24 Cnc Milling Machine Operator Relationship Specialty Start Date End Date Nano Back PA [address] [place] [address] Dr [place], [place] [address] PCP [facility] 01/07/24 Cnc Milling Machine Operator Relationship Specialty Start Date End Date Nano Back PA [address] [place] [address] Dr [place], [facility] PCP [facility] 01/07/24 Cnc Milling Machine Operator Relationship Specialty Start Date End Date Nano Back PA [address] [place] [address] Dr [place], [facility] PCP [facility] 01/07/24 Cnc Milling Machine Operator Relationship Specialty Start Date End Date Nano Back PA [address] [place] [address] Dr [place], [facility] PCP [facility] 01/07/24 Cnc Milling Machine Operator Relationship Specialty Start Date End Date [facility], [place] [phone] [place], [place] PCP - General Family Medicine 10/15/24 Cnc Milling Machine Operator Relationship Specialty Start Date End Date Nano Back PA [address] [place] [address] [place] [address] [facility] 01/07/24 Cnc Milling Machine Operator Relationship Specialty Start Date End Date Nano Back PA [address] [facility] [place] [address] [facility] 01/07/24 Cnc Milling Machine Operator Relationship Specialty Start Date End Date Nano Back PA [address] [facility] [place] [address] [facility] 01/07/24 Cnc Milling Machine Operator Relationship Specialty Start Date End Date Nano Back PA [address] [facility] [place] [address] [facility] 01/07/24 Goals (unrecognized section and content) Goals may be documented in a n alternate sectionNot on filedocumented as of this encounterNot on filedocumented as of this encounterNot on filedocumented as of this encounterNot on filedocumented as of this encounterNot on filedocumented as of this encounter INFORMATION SOURCE (unrecogn ized section and content) DATE CREATED AUTHOR 07/27/2021 [facility] DATE CREATED AUTHOR AUTHOR'S ORGANIZ ATION 08/16/2022 [facility] DATE CREATED AUTHOR AUTHOR'S ORGANIZ ATION 12/13/2024 [facility] DATE CREATED AUTHOR AUTHOR'S ORGANIZ ATION 01/12/2025 [facility] DATE CREATED AUTHOR AUTHOR'S ORGANIZ ATION 01/20/2025 [facility] EPIC Reason for Visit (unrecogniz [...] BE BASED ON THE PRIMARY CLINICAL RECORDS. [employer] [facility]. provides no warranty or guarantee of the accuracy or completeness of information in this document.
[2025-01-25 18:11] VITALS: BP 121/71; PULSE 114
[2025-01-25 18:21] LABS: Glucose Urine UA NEGATIVE (NEGATIVE)
[2025-01-25 18:30] LABS: Crystals Seen? Seen #/HPF (None Seen)
[2025-01-25 18:31] LABS: Cast Seen? NONE SEEN #/LPF (NONE SEEN); Urine Culture Indicated NO
== END 2025-01-25 20:30 | disposition home or self-care (01) ==
PROVIDERS: Admitting Provider Obstetrics & Gynecology; Visit Provider Obstetrics & Gynecology
DX: O99.891 Other specified diseases and conditions complicating pregnancy (principal); R10.9 Unspecified abdominal pain; Z3A.33 33 weeks gestation of pregnancy
CPT/HCPCS: 59025; 81001; G0378; G0379

== ENCOUNTER 2025-02-17 19:50 | Outpatient (REF) | payer OTHER, SELFPAY ==
--- OUTSIDE RECORDS SUMMARY | 2025-02-17 13:00 | XMS_ITS | Encounter Summary ---
Author Organization [facility] Address [address] [place] [address] Care Team Providers Care Manifold Operator Name Role Phone Nano Back Unavailable Reason for Visit * ReasonCommentsRoutine Visit Encounter Details DateTypeDepartmentCare Team (Latest Contact Info)Ctmkrlwikce67/12/2025 1:00 PM ESTRoutine [facility] [address] [facility] [place] [address] Robert Marrero DO [address] [facility] [address] [place], [facility]11 Third trimester ([facility]); 36 weeks gestation of ([facility]) Social History Tobacco UseTypesPacks/DayYears UsedDateSmoking Tobacco: NeverSmokeless Tobacco: NeverAlcohol UseStandard Drinks/WeekCommentsNot Currently3 (1 standard drink = 0.6 oz pure alcohol)PHQ-2AnswerDate RecordedPatient Health Questionnaire-2 Score 6011/23/2024Estimated Date of UussvslzMkkghpcdLzb51/07/2025ased on UltrasoundSex and Gender InformationValueDate RecordedSex Assigned at Vpxraj1005/01/2023 12:34 PM ESTLegal UyuGejfge42/15/2023 6:38 PM EDTGender KvtlkzmxEuuwru66/24/2024 12:34 PM ESTSexual ElofguectwtElkshwjb03/24/2024 12:34 PM ESTdocumented as of this encounter Progress Notes * Catrina Samuels, CAROL - 02/17/2025 1:00 PM EST Reason for Appointment: Patient ID: Lia Blunt is a 24 y.o. female who presents for Routine Visit Patient presents today for Return OB appointment. MEDICATIONS Current Outpatient Medications Medication Instructions escitalopram (LEXAPRO) 20 mg, Oral, Daily 27-1 MG tablet 1 tablet, Daily ALLERGIES Allergies Allergen Reactions Metronidazole GI intolerance Other Reaction(s): Vomiting Other Reaction(s): Nausea And Vomiting ELEVATED HEART RATE Azithromycin Other Reaction(s): Nausea And Vomiting ELEVATED HEART RATE Macrolides And Ketolides Unknown Promethazine Wound Dressing Adhesive Hives PEELING SKIN PROBLEMS Active Ambulatory Problems Diagnosis Date Noted 38 weeks gestation of ([facility]) 11/28/2023 Resolved Ambulatory Problems Diagnosis Date [...] nursing note reviewed. Exam conducted with a corporate safety coordinator present. Vitals: Estimated body mass index is 42.57 kg/m?? as calculated from the following: Height as of 08/08/22: 5' 6 . Weight as of 02/02/25: 263 lb 12 oz. BP: No LMP recorded (lmp unknown). Patient is . Assessment/Plan ICD-10-CM 1. Third trimester ([facility]) Z34.93 POCT urinalysis dipstick manually resulted CULTURE, GROUP B STREP WITH SUSCEPTIBLITY CULTURE, GROUP B STREP WITH SUSCEPTIBLITY 2. 36 weeks gestation of ([facility]) Z3A.36 Assessment/Plan Return OB: Patient presents today for a routine obstetrics appointment. Patient is currently 36w3d . Patient states she is doing well but has complaints of being tired due to current . Patient has verbalizes frequent movement. labor precautions was discussed/given and patient was instructed to perform kick counts three times a day. Orders Placed This Encounter Procedures CULTURE, GROUP B STREP WITH SUSCEPTIBLITY POCT urinalysis dipstick manually resulted Follow Up: Patient is to return to office in 1 week for routine OB appointment. Documented by Catrina Samuels NP on behalf of: Robert Marrero DO documented in this encounter Plan of Treatment DateTypeDepartmentCare Team (Latest Contact Info)Faxlozmdnet60/19/2025 2:00 PM ESTRoutine [facility] [address] [facility] [facility] [place] [address] Robert Marrero DO [address] [facility] [address] [place], [place] [phone] NameTypePriorityAssociated DiagnosesOrder ScheduleCULTURE, GROUP B STREP WITH SUSCEPTIBLITYLabRoutine Third trimester ([facility]) Expected: 02/17/2025, Expires: 02/17/2026documented as of this encounter Procedures Procedure NamePriorityDate/TimeAssociated DiagnosisCommentsPOCT URINALYSIS VUQHZRXPZteqfry39/12/2025 1:25 PM EST Third trimester ([facility]) documented in this encounter Results * (ABNORMAL) POCT urinalysis dipstick manually resulted (02/17/2025 1:25 PM EST) ComponentValueRef RangeTest MethodAnalysis TimePerformed AtPathologist SignatureColor, UAAmberClarity, UAClearGlucose, UANegativeNegative - 2000(110) ++++ mg/dLBilirubin, UANegativeNegative - 4(70) +++ mg/dLKetones, UANegative Negative - 160(16) ++++ mg/dLSpec Grav, UA1.0251 - 1.03Blood, UAPositive Negative - 50 Villa/mcLpH, UA6.05 - 9Protein, UA1+Negative - 2000(20) ++++ mg/dL Urobilinogen, UA1.00.2 - 12 mg/dLLeukocytes, UA2+Negative - 500+++ Pierre/mcL Nitrite, UANegativeNegative - PositiveSpecimen (Source)Anatomical Location / LateralityCollection Method / VolumeCollection TimeReceived TimeUrine 02/17/2025 1:25 PM EST Narrative Authorizing ProviderResult TypeResult StatusCorey Janes DOPOINT OF CARE TEST ENTER/EDIT ORDERABLESFinal Result documented in this encounter Visit Diagnoses Diagnosis Third trimester ([facility]) state, incidental 36 weeks gestation of ([facility]) documented in this encounter Additional Health Concerns AssessmentNoted TimePHQ-9 Depression Total Score: 11:27 AM EDT documented as of this encounter Care Teams Team MemberRelationshipSpecialtyStart DateEnd Date Nano Back PA [address] [place] [address] [place] [address] PCP - [place] [address]/05/01documented as of this encounter
--- OUTSIDE RECORDS SUMMARY | 2025-02-17 19:54 | XMS_ITS | Encounter Summary ---
Author Organization [facility] Address [address] [place] [address] Care Team Providers Care Feather Baler Name Role Phone Nazanin Nano GENE Unavailable Encounter Details DateTypeDepartmentCare Team (Latest Contact Info)Voqrgtfenkj96/20/2025linisync Result Encounter [facility] External Department Unsolicited Robert Marrero DO [address] [place] [address] Social History Tobacco UseTypesPacks/DayYears UsedDateSmoking Tobacco: NeverSmokeless Tobacco: NeverAlcohol UseStandard Drinks/WeekCommentsNot Currently3 (1 standard drink = 0.6 oz pure alcohol)PHQ-2AnswerDate RecordedPatient Health Questionnaire-2 Score 6011/23/2024Estimated Date of EabycghnQuatvnglNvh07/07/2025Based on UltrasoundSex and Gender InformationValueDate RecordedSex Assigned at Sjiust0605/01/2023 12:34 PM ESTLegal YtkQzbqer99/15/2023 6:38 PM EDTGender KzqbalooZcbmqs50/24/2024 12:34 PM ESTSexual ZjyujfojecnArqbrekd94/24/2024 12:34 PM ESTdocumented as of this encounter Plan of Treatment DateTypeDepartmentCare Team (Latest Contact Info)Brfwhnrayzr11/19/2025 2:00 PM ESTRoutine [facility] [address] [place] [phone] Robert Marrero, DO [address] [place] [address] [place] [address] documented as of this encounter Procedures Procedure NamePriorityDate/TimeAssociated DiagnosisCommentsTBH URINE MICROSCOPIC MIPYRhocsvm79/20/2025 6:10 PM EDT TBH UA (CLEAN/CATCH) SENIOR ACCOUNTING ANALYST/MICRO IF IND.Naxvocm4001/25/2025 6:10 PM EDT documented in this encounter Results * (ABNORMAL) [facility] URINE MICROSCOPIC ONLY (01/25/2025 6:10 PM EDT)ComponentValue Ref RangeTest MethodAnalysis TimePerformed AtPathologist SignatureTBH WBC2-5 (A)NONE SEEN #/HPFTBHTBH VWC25-76(A)0 - 2 #/HPFTBHBACTERIA URINETRACE(A)NONE SEEN #/HPFTBHMUCUS URINESMALL(A)NONE SEENTBHSQUAMOUS EPITHELIAL CELL URINEFEW (A)NONE/RARE #/LPFTBHCRYSTALS SEEN?Seen(A)None Seen #/HPFTBHTBH CALCIUM OXALATE CRYSTALS URINEMODERATETBHCAST SEEN?NONE SEENNONE SEEN #/LPFTBHURINE CULTURE INDICATEDNOTBHSpecimen (Source)Anatomical Location / Laterality Collection Method / VolumeCollection TimeReceived Time01/25/2025 6:10 PM EDT 01/25/2025 6:18 PM EDT Narrative [facility] - 01/25/2025 6:31 PM EDT Authorizing ProviderResult TypeResult StatusCorey Janes DOCLINISYNCFinal Result Performing OrganizationAddressCity/State/ZIP CodePhone Number CLINISYNC TBH * (ABNORMAL) TBH UA (CLEAN/CATCH) SENIOR ACCOUNTING ANALYST/MICRO IF IND. (01/25/2025 6:10 PM EDT) ComponentValueRef RangeTest MethodAnalysis TimePerformed AtPathologist SignatureCOLOR URINEYELLOWYELLOWTBHCLARITY URINECLEARCLEARTBHSPECIFIC GRAVITY URINE>=1.030(A)1.005 - 1.025TBHPH URINE6.05.0 - 9.0TBHPROTEIN URINETRACE NEG/TRACE mg/dLTBHGLUCOSE URINE UANEGATIVENEGATIVE mg/dLTBHBILIRUBIN URINE SMALL(A)NEGATIVETBHKETONES URINETRACE(A)NEGATIVE mg/dLTBHBLOOD URINELARGE(A) NEGATIVETBHNITRITE URINENEGATIVENEGATIVETBHUROBILINOGEN URINE1.00.2 - 1.0 EU/dLTBHLEUKOCYTE ESTERASE URINETRACE(A)NEGATIVETBHURINE MICROSCOPIC INDICATED YESTBHSpecimen (Source)Anatomical Location / LateralityCollection Method / VolumeCollection TimeReceived Time01/25/2025 6:10 PM EDT1 6:18 PM EDT Narrative [facility] - 01/25/2025 6:31 PM EDT Authorizing ProviderResult TypeResult StatusCorey Janes DOCLINISYNCFinal Result Performing OrganizationAddressCity/State/ZIP CodePhone Number CLINISYNC TB documented in this encounter Visit Diagnoses Not on filedocumented in this encounter Additional Health Concerns AssessmentNoted TimePHQ-9 Depression Total Score: 11:27 AM EDT documented as of this encounter Care Teams Team MemberRelationshipSpecialtyStart DateEnd Date Nano Back PA [address] [place] [address] [place] [address] PCP - [facility]01/07/24documented as of this encounter
--- OUTSIDE RECORDS SUMMARY | 2025-02-17 19:54 | XMS_ITS | Clinical Summary ---
Author Organization [email or web address] [facility] tem Address [id number] [address] [place] [address] Care Team Providers Care Caregiver Assisted Living Name Role Phone [facility], [facility], [facility] Primary Care Provider Allergies Active AllergyReactionsCriticalityNoted DateCommentsAzithromycinNausea And QihsgpitUxevij36/14/2022 ELEVATED HEART RATE EiqnkvqbHjxbgCdq79/20/2023 PEELING SKIN MetronidazoleNausea And YmlfrgsbCaxpxc97/04/2024 ELEVATED HEART RATE Medications MedicationSigDispense QuantityRefillsLast FilledStart DateEnd DateStatus 25/iron fum/folic/dha (-1 ORAL) Take by mouth.Active folic acid (FOLVITE) 1 mg tablet Indications:Folic acid deficiencyTake 1 tablet (1 mg total) by mouth in the morning. 30 tablet 3Active Additional Information Patient not taking.Reported on 12/10/2024 progesterone (ENDOMETRIN) 100 mg vaginal insert Insert 1 tablet (100 mg total) into the vagina in the evening.Active metoclopramide (REGLAN) 10 mg tablet Take 1 tablet (10 mg total) by mouth every 6 (six) hours. 15 tablet 5Active Additional Information Patient not taking.Reported on 12/10/2024 ondansetron (ZOFRAN) 4 mg tablet Take 1 tablet (4 mg total) by mouth every 8 (eight) hours as needed for nausea or vomiting.Active prochlorperazine (COMPAZINE) 25 mg suppository Insert 1 suppository (25 mg total) into the rectum every 12 (twelve) hours as needed for nausea or vomiting. 12 suppository 5Active escitalopram (LEXAPRO) 10 mg tablet Take 1 tablet (10 mg total) by mouth in the morning.Active benzonatate (TESSALON PERLES) 100 mg capsule Take 1 capsule (100 mg total) by mouth 3 (three) times a day as needed for cough. 20 capsule 5Active Active Problems Estimated Date of QbujevwfSpegexyyImc62/07/2025Based on last menstrual period of 06/07/2024 (Approximate) No known active problems Encounters DateTypeDepartmentCare OvgqOsgrgjppddc83/07/2025Results Follow-Up [facility] [address] [place] [address] Niama Salceod APRN-CNM Urine Culture Urine, Clean Catch Midstream, Vaginitis Panel PCR, Chlamydia/GC by PCR Bisi Swab12/10/2024 4:36 PM EDT - 12/10/2024 8:10 PM EDTHospital Encounter [facility] [address] [place] [address] Naima Salcedo APRN-CNM Alicia Garcia MD Discharge Disposition: Homefrom Last 3 Months Family History Medical HistoryRelationNameCommentsCancerFatherDepressionFatherBreast cancer Maternal AuntOvarian cancerMaternal AuntHypertensionMaternal GrandmotherCancer MotherDepressionMotherOvarian cancerMotheruterineColon cancerNeg HxRelationName StatusCommentsFatherAliveMaternal AuntAliveMaternal GrandfatherAliveMaternal GrandmotherAliveMotherAlivePaternal GrandfatherAlivePaternal GrandmotherAlive Social History Tobacco UseTypesPacks/DayYears UsedDateSmoking Tobacco: NeverPassive Smoke Exposure: YesSmokeless Tobacco: Never Tobacco Cessation:Counseling Given: Not Answered Alcohol UseStandard Drinks/WeekCommentsNot Currently0 (1 standard drink = 0.6 oz pure alcohol)socialPRAPARE - TransportationAnswerDate RecordedIn the past 12 months, has lack of transportation kept you from medical appointments or from getting medications?No12/10/2024In the past 12 months, has lack of transportation kept you from meetings, work, or from getting things needed for daily living?No12/10/2024Housing InstabilityAnswerDate RecordedAre you worried or concerned that in the next two months you may not have stable housing that you own, rent or stay in as a part of a household?No12/10/2024hildcareAnswer Date SznuunxaSptvelxabDwwpcrg35/12/2019EmploymentAnswerDate RecordedEmployment Fcsakll6409/17/2018Hunger ScreeningAnswerDate RecordedWithin the past 12 months we worried whether our food would run out before we got money to buy more.Never True12/10/2024Within the past 12 months the food we bought just didn't last and we didn't have money to get more.Never True12/10/2024Purpose - LifeAnswerDate RecordedPurpose and direction in fabtDhtsuah87/11/2021Estimated Date of YakwiltiAgmrmfbeAxj15/07/2025Based on last menstrual period of 06/07/2024 (Approximate)Sex and Gender InformationValueDate RecordedSex Assigned at Not on fileLegal OyyQybsuj72/06/2015 12:06 PM EDTGender IdentityNot on file Sexual ZkbwoipujegZszhxpai06/23/2024 3:24 PM EDT Last Filed Vital Signs Vital SignReadingTime TakenCommentsBlood Ekiqwqtu343/5909 5:00 PM EDT Efykh9980/04/2025 5:00 PM XDRLdljbuktpry57 ??C (98.6 ??F)12/10/2024 5:00 PM EDT Respiratory Qgph894512/10/2024 5:00 PM EDTOxygen Kvfkjdouzl241%10/15/2024 3:15 PM EDTInhaled Oxygen Concentration--Tgjeob331.4 kg (250 lb)10/15/2024 12:39 PM EDT Hekudz863.2 cm (5' 7 )08/03/2024 11:49 AM EDTBody Mass Index39.16008/03/2024 11:49 AM EDT Plan of Treatment Health MaintenanceDue DateLast DoneCommentsDepression Jpptnsugh55/02/2014dult BMI Follow Up Plan10/08/2019Influenza Iypabrq8012/07/2024RSV ( or age 60+ yrs) (1 - Risk 1-dose series)5Adult BMI Erwkpohkq55/10/2026 10/15/2024Tobacco Fngwmxsyi565Chlamydia Bwpghzxdn67/04/2026 12/10/2024, 05/01/2024, 3Pap Smear, 07/01/2023 DTaP,Tdap and Td Vaccines (2 - Td or Tdap) Medical Devices Not on file Procedures Procedure NamePriorityDate/TimeAssociated DiagnosisCommentsURINALYSISSTAT 12/10/2024 7:06 PM EDT CHLAMYDIA/GC BY PCR BISI KLGHPaexoun91/04/2025 5:36 PM EDT VAGINITIS PANEL WMKMGPH1112/10/2024 5:36 PM EDT URINE VRWQEDCJjfherp60/04/2025 5:36 PM EDT from Last 3 Months Results * (ABNORMAL) Urinalysis (12/10/2024 7:06 PM EDT)ComponentValueRef RangeTest MethodAnalysis TimePerformed AtPathologist SignatureCOLORYellowYellow 12/10/2024 7:36 PM EDTPMORROW COUNTY HOSPITALTURBIDITYClearClear 12/10/2024 7:[address] ELIZAB[facility] BOARDMAN HOSPITALPECIFIC GRAVITY1.010 1.003 - 1.8690612/10/2024 7:36 PM EDTPMORROW COUNTY HOSPITALNITRITE OsattsllHilmaptd24/04/2025 7:36 PM EDTPMORROW COUNTY HOSPITAL PH,URINE6.55.0 - 8.509 7:36 PM EDHARRISON [facility] LEUKOCYTE GVCZLTVGNaggapdqHnicalje00/04/2025 7:36 PM EDTPMORROW COUNTY HOSPITALPROTEINNegativeNegative12/10/2024 7:36 PM EDTPMORROW COUNTY HOSPITALKETONES (URINE)BscnrjppYueasurd82/04/2025 7:36 PM EDT [facility]ITALUROBILINOGEN1.0 eu/dL0.2 eu/dL, 1.0 eu/dL 12/10/2024 7:36 PM EDTPMORROW COUNTY HOSPITALBILIRUBIN (URINE) VvtoibrjCbjmmjjj94/04/2025 7:36 PM EDTPMORROW COUNTY HOS[facility]ITAL BLOOD/HGBSmall(A)Idnhlezy55/04/2025 7:36 PM EDTPMORROW COUNTY HOSPITALCA OXALATE CRYSTALSPresent(A)None12/10/2024 7:36 PM EDHARRISON COMMUNITY HOSPITALR.B.CELLS - 7:[address] ELIZABETH BOARDMAN HOSPITALQUAMOUS DIWODQIKMD52 - 7:36 PM EDT [facility] HOSPITALW.B.CELLS10 7:36 PM EDT [facility] HOSPITALGLUCOSE (URINE)NegativeNegative, 250 mg/dL 12/10/2024 7:[address] ELIZABETH BOARDMAN HOSPITALpecimen (Source) Anatomical Location / LateralityCollection Method / VolumeCollection Time Received TimeUrineUrine specimen collection, clean catch / Tjgdlih2212/10/2024 7:06 PM EDT12/10/2024 7:12 PM EDT Narrative Authorizing ProviderResult TypeResult StatusChelsterry Salcedo PARK RANGER-CNMURINE ORDERABLESFinal ResultPerforming OrganizationAddressCity/State/ZIP CodePhone Number [facility] [address] [place] [address], * Chlamydia/GC by PCR Bisi Swab (12/10/2024 5:36 PM EDT)ComponentValueRef Range Test MethodAnalysis TimePerformed AtPathologist SignatureCHLAMYDIA DNA(PCR) HbinivucRxznfejp19/05/2025 10:32 AM [facility] Comment:Chlamydia trachomatis not detected by nucleic acid amplification. This does not exclude the possibility of infection because results are dependent on adequate specimen collection.GONORRHOEAE DNA(PCR)GpkhrueaWvbpnhhc10/05/2025 10:32 AM [facility] LAB[facility]ATORYComment:Neisseria gonorrhoeae not detected by nucleic acid amplification. This does not exclude the possibil ity of infection because results are dependent on adequate specimen collection.Specimen (Source)Anatomical Location / LateralityCollection Method / VolumeCollection TimeReceived TimeSwabVaginal structure / Ckzqogw8912/10/2024 5:36 PM EDT12/10/2024 6:00 PM EDT Narrative Authorizing ProviderResult TypeResult StatusChelsterry Salcedo APRN-CNMMICROBIOLOGY - GENERAL ORDERABLESFinal ResultPerforming OrganizationAddressCity/State/ZIP Code Phone Number [facility] [address] [place] [address], * Vaginitis Panel PCR (12/10/2024 5:36 PM EDT)ComponentValueRef RangeTest Method Analysis TimePerformed AtPathologist SignatureBACT. VAGINOSIS DNANot Detected Not Vpsexome98/05/2025 5:14 PM [facility]ATORYComment: Qualitative results are reported based on detection and quantitation of targeted organism markers which include: Lactobacillus spp. (L. crispatus and L. jensenii), Gardnerella vaginalis, Atopobium vaginae, Bacterial Vaginosis Associated Bacteria-2 (BVAB-2) and Megasphaera-1.LESA SPECIES DNANot DetectedNot Jheirjkd53/05/2025 5:14 PM [facility] Comment:Lesa species not detected include: C. albicans, C. tropicalis, C. parapsilosis or C. dubliniensis.LESA KRUSEI DNANot DetectedNot Detected 12/11/2024 5:14 PM [facility]ATORYComment:No Lesa krusei detected.LESA GLABRATA DNANot DetectedNot Vspbzqib36/05/2025 5:14 PM [facility]ATORYComment:No Lesa glabrata detected. TRICHOMONAS VAG DNANot DetectedNot Ljymuhen12/05/2025 5:14 PM [facility]ATORYComment: No Trichomonas vaginalis detected. BD MAX Vaginal Panel has not been evaluated for patients under 18 years old. Results for these patients should be reviewed and assessed in accordance with clinical presentation to determine patient diagnosis. Specimen (Source)Anatomical Location / LateralityCollection Method / Volume Collection TimeReceived TimeSwabVaginal structure / Lovxawi5212/10/2024 5:36 PM EDT12/10/2024 6:00 PM EDT Narrative Authorizing ProviderResult TypeResult StatusNaima Salcedo APRN-CNMMICROBIOLOGY - GENERAL ORDERABLESFinal ResultPerforming OrganizationAddressCity/State/ZIP Code Phone Number [facility] [address] [place] [address], * Urine Culture Urine, Clean Catch Midstream (12/10/2024 5:36 PM EDT)Component ValueRef RangeTest MethodAnalysis TimePerformed AtPathologist SignatureCULTURE HMZOTAI01-81,000 ORGANISMS/mL NORMAL UROGENITAL FLORA12/11/2024 7:45 PM EDT [facility] LABORATORYSpecimen (Source)Anatomical Location / LateralityCollection Method / VolumeCollection TimeReceived TimeUrineUrine specimen collection, clean catch / Hcsbzku8112/10/2024 5:36 PM EDT12/10/2024 6:00 PM EDT Narrative Authorizing ProviderResult TypeResult StatusNaima Salcedo APRN-CNMMICROBIOLOGY - GENERAL ORDERABLESFinal ResultPerforming OrganizationAddressty/State/ZIP Code Phone Number [facility] [address] [place] [address], from Last 3 Months Insurance * Guarantor: Rachelle Bradley TypeRelation to PatientDate of PhoneBilling AddressPersonal/XbyntkDowhhb90/08/[address] [address] Advance Directives * Full Code (Latest Code Status on File) Date ActivatedDate InactivatedComments07/30/2023 4:35 PM07/30/2023 7:06 PM Care Teams Team MemberRelationshipSpecialtyStart DateEnd Date [facility] [address] [place], [place] PCP - GeneralFamily Medicine10/15/24
--- OUTSIDE RECORDS SUMMARY | 2025-02-17 19:54 | XMS_ITS ---
Author Organization [employer] Source Produ ction (ClinicalSummary Clone) Address Unknown Care Team Providers Care Pot Runner Name Role Phone Unavailable Primary Care Physician Unavailab le Results * [UNITY] ANEUPLOIDY NIPT Performed by: [email or web address] Component Value Range Date Fraction 7.5% 08/25/2024 06:26 am UTCRh(D) NIPTRhD BYSFQNPF42/20/2025 06:26 am UTCSex Chromosome AneuploidyNOT LHGTLYQZ51/20/2025 06:26 am UTCMonosomy XLOW RISK <1 in , 06:26 am UTCTrisomy 13LOW RISK <1 in , 06:26 am UTCTrisomy 18LOW RISK <1 in , 06:26 am UTCTrisomy 21LOW RISK <1 in , 06:26 am UTCFetal MhpEWXZAT00/20/2025 06:26 am UTCPregnancy RjzgfgnbmRLXRNMKHD66/20/2025 06:26 am UTCFor detailed report, see PDFSee PDF 08/25/2024 06:26 am UTC08/25/2024 06:26 am UTC Social History Observation Value Start Date End Date
--- OUTSIDE RECORDS SUMMARY | 2025-02-17 19:54 | XMS_ITS | Encounter Summary ---
Author Organization [facility] Address [address] [place] [address] Care Team Providers Care Technical Instructor Name Role Phone NazaninNano Unavailable Encounter Details DateTypeDepartmentCare Team (Latest Contact Info)Pdsazqhtzbm44/12/2025Bamboo flowsheet [facility] [address] [phone] Robert Marrero DO [address] [facility] [address] [place] [id number] Social History Tobacco UseTypesPacks/DayYears UsedDateSmoking Tobacco: NeverSmokeless Tobacco: NeverAlcohol UseStandard Drinks/WeekCommentsNot Currently3 (1 standard drink = 0.6 oz pure alcohol)PHQ-2AnswerDate RecordedPatient Health Questionnaire-2 Score 608Estimated Date of IdznvurdKjrnainzErv57/07/2025Based on UltrasoundSex and Gender InformationValueDate RecordedSex Assigned at Hluewg4805/01/2023 12:34 PM ESTLegal PlhVqpqlj42/15/2023 6:38 PM EDTGender LayobuupBrbbmo00/24/2024 12:34 PM ESTSexual XzayjspeuvkLlyurvje81/24/2024 12:34 PM ESTdocumented as of this encounter Plan of Treatment DateTypeDepartmentCare Team (Latest Contact Info)Ocfhyulbiqw11/19/2025 2:00 PM ESTRoutine [facility] [address] [place] [address] Robert Marrero DO [address] [place] [address] documented as of this encounter Visit Diagnoses Not on filedocumented in this encounter Additional Health Concerns AssessmentNoted TimePHQ-9 Depression Total Score: 11:27 AM EDT documented as of this encounter Care Teams Team MemberRelationshipSpecialtyStart DateEnd Date Nano Back PA [address] [place] [address] PCP - [facility]01/07/24documented as of this encounter
--- OUTSIDE RECORDS SUMMARY | 2025-02-17 19:54 | XMS_ITS | Clinical Summary ---
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 Name Role Phone Nano Back Unavailable Allergies Active AllergyReactionsCriticalityNoted XevkTutgtbrlDaiagwrznibzMhsuiv23/14/2022 Other Reaction(s): Nausea And Vomiting ELEVATED HEART RATE Macrolides And YpjpljqnnCqotqfx45/23/2024MetronidazoleGI intoleranceHigh 07/09/2023 Other Reaction(s): Vomiting Other Reaction(s): Nausea And Vomiting ELEVATED HEART RATE Mdhpblawkuve17/12/2025Wound Dressing CmsbqomjVrvehEgn02/20/2023 PEEL[place] SKIN Medications MedicationSigDispense QuantityRefillsLast FilledStart DateEnd DateStatus 27-1 MG tablet Take 1 tablet by mouth Daily2Active escitalopram (Lexapro) 20 MG tablet Indications:Anxiety, generalizedTake 1 tablet (20 mg) by mouth Daily 30 tablet 5Active Active Problems ProblemNoted DateDiagnosed Date38 weeks gestation of ([facility]) 4Estimated Date of FltnnchyQdynzmxlYsr26/07/2025Based on Ultrasound Encounters DateTypeDepartmentCare JturDqyjrhpnuuq49/12/2025 1:00 PM ESTRoutine [facility] [address] [place] [address] [place] [address] Robert Marrero DO Third trimester ([facility]); 36 weeks gestation of ([facility])02/17/2025amboo flowsheet [facility] [place] [phone] Robert Marrero DO 02/02/2025 10:20 AM EDTRoutine [facility] [place] [place] [address] Nano Back PA Third trimester ([facility]); 34 weeks gestation of ([facility])02/02/2025amboo flowsheet [facility] [place] [address] Nano Back PA 02/01/2025Patient Outreach [facility] [address] [place] [address] Nano Melendez LPN 01/25/2025linisync Result Encounter [facility] External Department Unsolicited Robert Marrero DO 01/19/2025 11:20 AM EDTRoutine [facility] [place] [address] Nano Back PA Third trimester ([facility]); 32 weeks gestation of ([facility]); Hematuria, unspecified type01/19/2025 10:30 AM EDTAncillary Procedure [facility] [place] [place] [address] size inconsistent with dates ([facility])01/04/2025 9:30 AM EDTRoutine [facility] [place] [place] [address] Catrina Samuels NP size inconsistent with dates ([facility]) (Primary Dx); 30 weeks gestation of ([facility]); Third trimester ([facility]); History of miscarriage; Bipolar 1 disorder, depressed ([facility]); Anxiety, /29/2025amboo flowsheet [facility] [address] [facility] [place] [address] Catrina Samuels NP 01/01/2025Patient Outreach [facility] [place] [address] Nano Melendez LPN 12/21/2024 10:30 AM EDTRoutine [facility] [address] [facility] [place] [phone] Nano Back PA Third trimester ([facility]); 28 weeks gestation of ([facility])5Bamboo flowsheet [facility] [address] [facility] [place] [address] Nano Back PA 12/11/2024Telephone [facility] [address] [facility] [place] [address] Zaida Tavares MA 5Clinisync Result Encounter NOMS External Department Unsolicited Robert Marrero DO 12/03/2024Patient Outreach [facility] [address] [address] Nano Melendez LPN 12/01/2024bstract [facility] [address] [facility] [place] [address] Robert Marrero DO 11/24/2024bstract [facility] [address] [facility] [place] [address] Robert Marrero, 11/23/2024 11:20 AM EDTRoutine [facility] [address] [facility] [place] [address] Robert Marrero, 24 weeks gestation of ([facility]); Second trimester ([facility]); History of miscarriage; Diabetes mellitus screening; Urinary tract infection with hematuria, site unspecified; Episode of recurrent major depressive disorder, unspecified depression episode severity ; Bipolar 1 disorder, depressed (H[facility]); Anxiety, generalized ; PTSD (post-traumatic stress disorder)11/23/2024 10:30 AM EDTAncillary [place] [address] Encounter for follow-up ultrasound of anatomy ([facility])11/19/2024linisync Result Encounter [facility] External Department Unsolicited Robert Marrero DO from Last 3 Months Family History Medical HistoryRelationNameCommentsNo Known ProblemsFatherCancerMotherShauna CancerMother's SisterRelationNameStatusCommentsFatherAliveMotherShaunaMother's Sister Social History Tobacco UseTypesPacks/DayYears UsedDateSmoking Tobacco: NeverSmokeless Tobacco: Never Tobacco Cessation:Counseling Given: Not Answered Alcohol UseStandard Drinks/WeekCommentsNot Currently3 (1 standard drink = 0.6 oz pure alcohol)PHQ-2AnswerDate RecordedPatient Health Questionnaire-2 Score6 11/23/2024Estimated Date of JjajhfxdVasmtawrSfc18/07/2025ased on UltrasoundSex and Gender InformationValueDate RecordedSex Assigned at Hqznaw5105/01/2023 12:34 PM ESTLegal CywXpwjzm68/15/2023 6:38 PM EDTGender GjbdlrjdFjfqbf90/24/2024 12:34 PM ESTSexual CzvcmrorpkbRnbtitsg19/24/2024 12:34 PM EST Last Filed Vital Signs Vital SignReadingTime TakenCommentsBlood Lxwcfbvc286/8410 10:48 AM EDT Pulse--Temperature--Respiratory Rate--Oxygen Saturation--Inhaled Oxygen Concentration--Ninvqy835 kg (263 lb 12 oz)02/02/2025 10:48 AM AFILwvqqt552.6 cm (5' 6 )08/08/2022 12:00 PM EDTBody Mass Index42.57008/08/2022 12:00 PM EDT Plan of Treatment DateTypeDepartmentCare Team (Latest Contact Info)Nzflwhzhzra13/19/2025 2:00 PM [place] [address] Robert Marrero, DO [address] [place] [address] Health MaintenanceDue DateLast DoneCommentsPneumococcal Vaccine: Pediatrics (0 to 5 Years) and At-Risk Patients (6 to 64 Years) (1 of 2 - PCV)2020OVID- 19 Vaccine (1 - season)2024Influenza Vaccine (#1)2024 Procedures Procedure NamePriorityDate/TimeAssociated DiagnosisCommentsPOCT URINALYSIS EJRVVZHDBkhixit08/12/2025 1:25 PM EST Third trimester ([facility]) POCT URINALYSIS EPRSNBFJTfdcmyi35/28/2025 10:55 AM EDT Third trimester ([facility]) [facility] URINE MICROSCOPIC YHATVfohzwb66/20/2025 6:10 PM EDT [facility] UA (CLEAN/CATCH) OPERATOR MAINTAINER/MICRO IF IND.Ffiomfh9501/25/2025 6:10 PM EDT POCT URINALYSIS VNLNWGBACwswagu34/14/2025 11:32 AM EDT 32 weeks gestation of ([facility]) US OB FOLLOW UP TRANSABDOMINAL XEMKEOSQAobtytu44/14/2025 11:14 AM EDT size inconsistent with dates ([facility]) URINARY TRACT INFECTION (HTRX)Gxzlxkm9501/19/2025 12:00 AM EDT POCT URINALYSIS CJNNYBUUSljtdpb34/29/2025 9:49 AM EDT 30 weeks gestation of ([facility]) Third trimester ([facility]) POCT URINALYSIS QDMYSNMUFbcbuvo76/15/2025 10:42 AM EDT Third trimester ([facility]) GLUCOSE 1 VYDJFntsuek66/03/2025 10:28 AM EDT ALL CBC WITH AUTO HNJHNaumhsz90/03/2025 10:28 AM EDT URINARY TRACT INFECTION (HTRX)Ejbrcjt6311/23/2024 11:27 AM EDT POCT URINALYSIS NZUWMUOUUbsofrs36/18/2025 11:01 AM EDT 24 weeks gestation of ([facility]) Second trimester ([facility]) US OB LIMITED 1+ JYLPKGFAobkvwf42/18/2025 10:44 AM EDT Encounter for follow-up ultrasound of anatomy ([facility]) [facility] URINE MICROSCOPIC OZAGAbjetkf32/14/2025 5:15 PM EDT [facility] UA (CLEAN/CATCH) OPERATOR MAINTAINER/MICRO IF IND.Cdvktwr5411/19/2024 5:15 PM EDT from Last 3 Months Results * (ABNORMAL) POCT urinalysis dipstick manually resulted (02/17/2025 1:25 PM EST) Only the most recent of6 resultswithin the time period is included. ComponentValueRef RangeTest MethodAnalysis TimePerformed AtPathologist Signature Color, UAAmberClarity, UAClearGlucose, UANegativeNegative - 2000(110) ++++ mg/dL Bilirubin, UANegativeNegative - 4(70) +++ mg/dLKetones, UANegativeNegative - 160(16) ++++ mg/dLSpec Grav, UA1.0251 - 1.03Blood, UAPositiveNegative - 50 Villa/mcLpH, UA6.05 - 9Protein, UA1+Negative - 2000(20) ++++ mg/dLUrobilinogen, UA 1.00.2 - 12 mg/dLLeukocytes, UA2+Negative - 500+++ Pierre/mcLNitrite, UANegative Negative - PositiveSpecimen (Source)Anatomical Location / LateralityCollection Method / VolumeCollection TimeReceived AmwdLihry50/12/2025 1:25 PM EST Narrative Authorizing ProviderResult TypeResult StatusCorey Janes DOPOINT OF CARE TEST ENTER/EDIT ORDERABLESFinal Result * (ABNORMAL) [facility] URINE MICROSCOPIC ONLY (01/25/2025 6:10 PM EDT) Only the most recent of2 resultswithin the time period is included. ComponentValueRef RangeTest MethodAnalysis TimePerformed AtPathologist Signature [facility] WBC2-5(A)NONE SEEN #/HPFTBHTBH BCC09-68(A)0 - 2 #/HPFTBHBACTERIA URINETRACE (A)NONE SEEN #/HPFTBHMUCUS URINESMALL(A)NONE SEENTBHSQUAMOUS EPITHELIAL CELL URINEFEW(A)NONE/RARE #/LPFTBHCRYSTALS SEEN?Seen(A)None Seen #/HPFTBHTBH CALCIUM OXALATE CRYSTALS URINEMODERATETBHCAST SEEN?NONE SEENNONE SEEN #/LPFTBHURINE CULTURE INDICATEDNOTBHSpecimen (Source)Anatomical Location / Laterality Collection Method / VolumeCollection TimeReceived Time01/25/2025 6:10 PM EDT 01/25/2025 6:18 PM EDT Narrative CLINISYNC - 01/25/2025 6:31 PM EDT Authorizing ProviderResult TypeResult StatusCorey [facility] DOCLINISYNCFinal Result Performing OrganizationAddressCity/State/ZIP CodePhone Number CLINISYNC [facility] * (ABNORMAL) [facility] UA (CLEAN/CATCH) OPERATOR MAINTAINER/MICRO IF IND. (01/25/2025 6:10 PM EDT) Only the most recent of2 resultswithin the time period is included. ComponentValueRef RangeTest MethodAnalysis TimePerformed AtPathologist Signature COLOR URINEYELLOWYELLOWTBHCLARITY URINECLEARCLEARTBHSPECIFIC GRAVITY URINE >=1.030(A)1.005 - 1.025TBHPH URINE6.05.0 - 9.0TBHPROTEIN URINETRACENEG/TRACE mg/dLTBHGLUCOSE URINE UANEGATIVENEGATIVE mg/dLTBHBILIRUBIN URINESMALL(A)NEGATIVE TBHKETONES URINETRACE(A)NEGATIVE mg/dLTBHBLOOD URINELARGE(A)NEGATIVETBHNITRITE URINENEGATIVENEGATIVETBHUROBILINOGEN URINE1.00.2 - 1.0 EU/dLTBHLEUKOCYTE ESTERASE URINETRACE(A)NEGATIVETBHURINE MICROSCOPIC INDICATEDYESTBHSpecimen (Source)Anatomical Location / LateralityCollection Method / VolumeCollection TimeReceived Time01/25/2025 6:10 PM EDT1 6:18 PM EDT Narrative CLINISYNC - 01/25/2025 6:31 PM EDT Authorizing ProviderResult TypeResult StatusCorey Janes DOCLINISYNCFinal Result Performing OrganizationAddressCity/State/ZIP CodePhone Number [facility] * OB follow up transabdominal approach (01/19/2025 11:14 AM EDT)Anatomical RegionLateralityModalityBodyUltrasoundSpecimen (Source)Anatomical Location / LateralityCollection Method / VolumeCollection TimeReceived Time01/19/2025 12:32 PM EDT Impressions 01/20/2025 7:05 AM EDT Single, live intrauterine , current sonographic age of 32 weeks and 2 days, with an estimated date of delivery of March 14, 2025 (prior MONIQUE March 19, 2025). * ??Estimated Weight (g) by Percentile is based upon an accurate estimated age based onlast menstrual period. ?? TRANSCRIBED BY: ? ELECTRONICALLY SIGNED BY: Dion Iglesias MD Narrative 01/20/2025 7:05 AM EDT FINDINGS: Comparison November 23 and October 26, 2024. A single, live intrauterine is present with normal cardiac rate of 169 beats per minute. Normal activity and amniotic fluid volume. Amniotic fluid index is 16 cm. ??Morphology is grossly normal. The placenta is anterior, not associated with the cervical os. ??The current sonographic age is 32 weeks and 2 days, based on the following measurements: ?BPD ? 7.9 cm (31 weeks, 5 days) ?Head Circumference ?29.6 cm (32 weeks, 5 days) ?Abdominal Circumference ?28.1 cm (32 weeks, 1 day) ?Femur Length ?6.2 cm (32 weeks, 2 days) ?Presentation ? Cephalic ? Weight (g) by Percentile ??36.6 % * These measurements result in an estimated date of delivery of March 14, 2025. ?? The current estimated weight [id number] grams (4 pounds, 4 ounces). ?? Procedure Note Dion Iglesias MD - 01/20/2025 FINDINGS: Comparison November 23 and October 26, 2024. A single, live intrauterine is present with normal cardiacrate of 169 beats per minute. Normal activity and amniotic fluidvolume. Amniotic fluid index is 16 cm. Morphology is grossly normal. Theplacenta is anterior, not associated with the cervical os. The currentsonographic age is 32 weeks and 2 days, based on the followingmeasurements: BPD 7.9 cm (31 weeks, 5 days) Head Circumference 29.6 cm (32 weeks, 5 days) Abdominal Circumference 28.1 cm (32 weeks, 1 day) Femur Length 6.2 cm (32 weeks, 2 days) Presentation Cephalic Weight (g) by Percentile 36.6 % * These measurements result in an estimated date of delivery of March. The current estimated weight qv8367 grams (4 pounds, 4ounces). IMPRESSION: Single, live intrauterine , current sonographic age of 32 weeksand 2 days, with an estimated date of delivery of March 14, 2025 (priorEDD March 19, 2025). * Estimated Weight (g) by Percentile is based upon an accurateestimated age based on last menstrual period. TRANSCRIBED BY: ELECTRONICALLY SIGNED BY: Dion Iglesias MD Authorizing ProviderResult TypeResult StatusCatrina Samuels NPIMG OB US PROCEDURESFinal Result * URINARY TRACT INFECTION (HTRX) (01/19/2025 12:00 AM EDT) Only the most recent of2 resultswithin the time period is included. ComponentValueRef RangeTest MethodAnalysis TimePerformed AtPathologist Signature ACINETOBACTER OUYOODYZ153.961 - 24.689 ppm01/20/2025 8:26 AM EDTHealthTrackRx at LabPortACINETOBACTER BAUMANIINot Uvbbnjzg05.961 - 24.689 ppm01/20/2025 8:26 AM EDTHealthTrackRx at LabPortCITROBACTER GEIOSUED633.000 - 32.015 ppm01/20/2025 8:26 AM EDTHealthTrackRx at LabPortCITROBACTER FREUNDIINot Tkhjogos51.000 - 32.015 ppm01/20/2025 8:26 AM EDTHealthTrackRx at LabPortENTEROBACTER AEROGENES, SBDXXNP285.000 - 32.290 ppm01/20/2025 8:26 AM EDTHealthTrackRx at LabPort ENTEROBACTER AEROGENES, CLOACAENot Gwcrilxa92.000 - 32.290 ppm01/20/2025 8:26 AM EDTHealthTrackRx at LabPortENTEROCOCCUS FAECALIS, GHOLZIU614.000 - 33.043 ppm 01/20/2025 8:26 AM EDTHealthTrackRx at LabPortENTEROCOCCUS FAECALIS, FAECIUMNot Aweclfnf29.000 - 33.043 ppm01/20/2025 8:26 AM EDTHealthTrackRx at LabPort ESCHERICHIA PQIP447.000 - 28.500 ppm01/20/2025 8:26 AM EDTHealthTrackRx at LabPortESCHERICHIA COLINot Kserfbqu77.000 - 28.500 ppm01/20/2025 8:26 AM EDT [facility] at LabPortKLEBSIELLA PNEUMONIAE, CHZHZHX331.000 - 31.865 ppm 01/20/2025 8:26 AM EDTHealthTrackRx at LabPortKLEBSIELLA PNEUMONIAE, OXYTOCANot Ejznjdtw38.000 - 31.865 ppm01/20/2025 8:26 AM EDTHealthTrackRx at LabPort MORGANELLA TEDUKEKA847.961 - 24.689 ppm01/20/2025 8:26 AM EDTHealthTrackRx at LabPortMORGANELLA MORGANIINot Rsdwzsjq50.961 - 24.689 ppm01/20/2025 8:26 AM EDT [facility] at LabPortPROTEUS MIRABILIS, DOLJKZNR269.000 - 28.500 ppm 01/20/2025 8:26 AM EDTHealthTrackRx at LabPortPROTEUS MIRABILIS, VULGARISNot Qsxihkvr35.000 - 28.500 ppm01/20/2025 8:26 AM EDTHealthTrackRx at LabPort PSEUDOMONAS CBHUQNMYGG645.000 - 31.801 ppm01/20/2025 8:26 AM EDTHealthTrackRx at LabPortPSEUDOMONAS AERUGINOSANot Frdoahol92.000 - 31.801 ppm01/20/2025 8:26 AM EDTHealthTrackRx at LabPortSTAPHYLOCOCCUS ACDFGB840.000 - 31.595 ppm01/20/2025 8:26 AM EDTHealthTrackRx at LabPortSTAPHYLOCOCCUS AUREUSNot Lhamezjq98.000 - 31.595 ppm01/20/2025 8:26 AM EDTHealthTrackRx at LabPortSTREPTOCOCCUS AGALACTIAE (GROUP B STREP)026.000 - 32.435 ppm01/20/2025 8:26 AM EDTHealthTrackRx at LabPortSTREPTOCOCCUS AGALACTIAE (GROUP B STREP)Not Pdesjsuo85.000 - 32.435 ppm 01/20/2025 8:26 AM EDTHealthTrackRx at LabPortCANDIDA ALBICANS, PARAPSILOSIS, RWIYXNMCTQ133.000 - 30.347 ppm01/20/2025 8:26 AM EDTHealthTrackRx at LabPort YANG ALBICANS, PARAPSILOSIS, TROPICALISNot Yhpitrvn13.000 - 30.347 ppm 01/20/2025 8:26 AM EDTHealthTrackRx at LabPortCANDIDA YTLIVLCB629.000 - 31.618 ppm01/20/2025 8:26 AM EDTHealthTrackRx at LabPortCANDIDA GLABRATANot Detected 23.000 - 31.618 ppm01/20/2025 8:26 AM EDTHealthTrackRx at LabPortCANDIDA KRUSEI0 23.000 - 30.873 ppm01/20/2025 8:26 AM EDTHealthTrackRx at LabPortCANDIDA KRUSEI Not Wwvsyozl90.000 - 30.873 ppm01/20/2025 8:26 AM EDTHealthTrackRx at LabPort SERRATIA LSPDTNEXFV746.000 - 31.581 ppm01/20/2025 8:26 AM EDTHealthTrackRx at LabPortSERRATIA MARCESCENSNot Zbereule47.000 - 31.581 ppm01/20/2025 8:26 AM EDT [facility] at LabPortSTREPTOCOCCUS PYOGENES (GROUP A STREP)019.961 - 24.689 ppm01/20/2025 8:26 AM EDTHealthTrackRx at LabPortSTREPTOCOCCUS PYOGENES (GROUP A STREP)Not Stbkecml55.961 - 24.689 ppm01/20/2025 8:26 AM EDTHealthTrackRx at LabPortSTAPHYLOCOCCUS EPIDERMIDIS, HAEMOLYTICUS, LUGDUNENSIS, SAPROPHYTICUS (VUZHD165.961 - 24.689 ppm01/20/2025 8:26 AM EDTHealthTrackRx at LabPort STAPHYLOCOCCUS EPIDERMIDIS, HAEMOLYTICUS, LUGDUNENSIS, SAPROPHYTICUS (URINANot Wdrbyvgu06.961 - 24.689 ppm01/20/2025 8:26 AM EDTHealthTrackRx at LabPort STAPHYLOCOCCUS EPIDERMIDIS, HAEMOLYTICUS, LUGDUNENSIS, SAPROPHYTICUS (URINA0 19.961 - 24.689 ppm01/20/2025 8:26 AM EDTHealthTrackRx at LabPortSTAPHYLOCOCCUS EPIDERMIDIS, HAEMOLYTICUS, LUGDUNENSIS, SAPROPHYTICUS (URINANot Ojuricry94.961 - 24.689 ppm01/20/2025 8:26 AM EDTHealthTrackRx at LabPortSpecimen (Source) Anatomical Location / LateralityCollection Method / VolumeCollection Time Received UdwhZguir60 1:29 AM EDT Narrative Authorizing ProviderResult TypeResult StatusA[facility] BLOOD ORDERABLES Final ResultPerforming OrganizationAddressCity/State/ZIP CodePhone Number [facility] [address] [place] [address] * GLUCOSE 1 HOUR (12/09/2024 10:28 AM EDT)ComponentValueRef RangeTest Method Analysis TimePerformed AtPathologist SignatureGLUCOSE 1 HOUR89<130 mg/dLTBH Specimen (Source)Anatomical Location / LateralityCollection Method / Volume Collection TimeReceived Time12/09/2024 10:28 AM EDT12/09/2024 10:38 AM EDT Narrative CLINISYNC - 12/09/2024 11:50 AM EDT Authorizing ProviderResult TypeResult StatusCorey Janes DOLAB BLOOD ORDERABLES Final ResultPerforming OrganizationAddressCity/State/ZIP CodePhone Number [facility] * (ABNORMAL) ALL CBC WITH AUTO DIFF (12/09/2024 10:28 AM EDT)ComponentValueRef RangeTest MethodAnalysis TimePerformed AtPathologist SignatureTBH WBC14.0(H) 4.0 - 11.0 10 3/uLTBHTBH RBC4.384.20 - 5.40 10 6/uLTBHTBH HGB11.9(L)12.0 - 16.0 g/dLTBHTBH HCT36.736.0 - 48.0 %TBHTBH MCV83.881.0 - 99.0 fLTBHTBH MCH27.2 26.7 - 34.0 pgTBHTBH MCHC32.429.9 - 35.2 g/dLTBHTBH RDW12.611.0 - 15.0 %TBHTBH KVJ676555 - 450 10 3/uLTBHTBH MPV10.19.5 - 13.5 fLTBHNEUTROPHILS PERCENT AUTO 67.943.0 - 75.0 %TBHLYMPHOCYTES PERCENT AUTO21.720.5 - 60.0 %TBHMONOCYTES PERCENT AUTO9.21.7 - 12.0 %TBHTBH EO %0.2(L)0.9 - 7.0 %TBHBASOPHILS PERCENT AUTO0.30.2 - 2.0 %TBHIMMATURE GRANULOCYTES PCT AUTO0.7(H)0.0 - 0.5 %TBH NEUTROPHILS ABSOLUTE AUTO9.5(H)1.4 - 6.5 10 3/uLTBHLYMPHOCYTES ABSOLUTE AUTO 3.11.2 - 3.8 10 3/uLTBHMONOCYTES ABSOLUTE AUTO1.3(H)0.3 - 0.8 10 3/uLTBHTBH EO #0.00.0 - 0.7 10 3/uLTBHBASOPHILS ABSOLUTE AUTO0.00.0 - 0.1 10 3/uLTBHIMMATURE GRANULOCYTES ABS AUTO0.10(H)0.00 - 0.03 10 3/uLTBHSpecimen (Source)Anatomical Location / LateralityCollection Method / VolumeCollection TimeReceived Time 12/09/2024 10:28 AM EDT12/09/2024 10:38 AM EDT Narrative CLINISYNC - 12/09/2024 11:06 AM EDT Authorizing ProviderResult TypeResult StatusCorey Janes DOCLINISYNCFinal Result Performing OrganizationAddressCity/State/ZIP CodePhone Number [facility] * US OB limited 1+ fetuses (11/23/2024 10:44 AM EDT)Anatomical RegionLaterality ModalityBodyUltrasoundSpecimen (Source)Anatomical Location / Laterality Collection Method / VolumeCollection TimeReceived Time11/24/2024 8:01 AM EDT Narrative 11/24/2024 8:01 AM EDT EXAM: US OB LIMITED 1+ FETUSES HISTORY: ??Follow up anatomy. COMPARISON: ??Ob ultrasound 10/26/2024. TECHNIQUE: Two-dimensional transabdominal grayscale ultrasound imaging of the pelvis was performed. FINDINGS: Gestation: Single Presentation: ??Cephalic ?? Cardiac Activity: ??153 beats per minute Amniotic Fluid: Appears adequate ANATOMY Cord vessels: Three Nose/Lips: Unremarkable IMPRESSION: 1. Single, live intrauterine gestation 24 weeks, 1 day by LMP. ??MONIQUE by LMP is 03/14/2025. 2. Unremarkable three-vessel cord and nose/lips. Interpreted by: Electronically signed by LORENA DE II, ?? , PHD at 24-Nov-2024 07:59:26 AM [facility] Procedure Note Lorena De MD - 11/24/2024 EXAM: US OB LIMITED 1+ FETUSES HISTORY: Follow up anatomy. COMPARISON: Ob ultrasound 10/26/2024. TECHNIQUE: Two-dimensional transabdominal grayscale ultrasound imaging ofthe pelvis was performed. FINDINGS: Gestation: Single Presentation: Cephalic Cardiac Activity: 153 beats per minute Amniotic Fluid: Appears adequate ANATOMY Cord vessels: Three Nose/Lips: Unremarkable IMPRESSION: 1. Single, live intrauterine gestation 24 weeks, 1 day by LMP. MONIQUE by LMPis 03/14/2025. 2. Unremarkable three-vessel cord and nose/lips. Interpreted by: Electronically signed by LORENA DE II, MD, PHD [id number] 07:59:26 AM [facility] Authorizing ProviderResult TypeResult StatusCorey Janes DOIMG OB US PROCEDURES Final Result from Last 3 Months Insurance Care Teams Team MemberRelationshipSpecialtyStart DateEnd Date Nano Back PA [address] [place] [address] [place] [address] [facility]01/07/24
--- OUTSIDE RECORDS SUMMARY | 2025-02-17 19:55 | XMS_ITS | CCD ---
Author Organization [facility] Care Team Providers Care Manager Trading Name Role Phone NON STAFF Primary Care Provider LAURA Kraft Emergency Provider NICOLE Ricci Emergency Provider [phone] DAPHNIE ., DR ALEXANDRE Attending Unavailabl e KARASIK ., DR ALEXANDRE Admitting Unavailabl [facility] Unava ilable KARASIK ., DR ALEXANDRE Consulting Unavailabl e LAVINIA, DR CHRISTIAN Doyle Consulting Unavailable KARASIK ., DR ALEXANDRE Consulting Unavailabl e KARASIK ., DR ALEXANDRE Attending Unavailabl e [facility] Unava ilable KARASIK ., DR ALEXANDRE Admitting Unavailabl e ANGELA SCOTT Consulting Unavailable DINA, DR ANA Dennis Attending Unavailable DINA, DR ANA Dennis Admitting [facility] Unava ilable DINA, DR ANA Dennis Consulting Unavailable BOATENG ., MR CUADRA Consulting Unavailable KARASIK ., DR ALEXANDRE Attending Unavailabl [facility] Unava ilable KARASIK ., DR ALEXANDRE Admitting Unavailabl e KARASIK ., DR ALEXANDRE Attending Unavailabl e [facility] Unava ilable KARASIK ., DR ALEXANDRE Admitting Unavailabl e KARASIK ., DR ALEXANDRE Consulting Unavailabl e JOANNE HUDSON Consulting Unavailable ENIO ATKINS Consulting Unavailable [facility] Unava ilable KARASIK ., DR [...] DR ALEXANDRE Attending Unavailabl e [facility] Primary Care Unava ilable KARASIK ., DR ALEXANDRE Admitting Unavailabl e KARASIK ., DR ALEXANDRE Consulting Unavailabl e ZIEBANGELA CARMICHAEL Consulting Unavailable KARASIK ., DR ALEXANDRE Attending Unavailabl e KARASIK ., DR ALEXANDRE Admitting Unavailabl e [facility] Primary Care Unava ilable KARASIK ., DR ALEXANDRE Consulting Unavailabl e KARASIK ., DR ALEXANDRE Consulting Unavailabl e KARASIK ., DR ALEXANDRE Attending Unavailabl e [facility] Primary Care Unava ilable KARASIK ., DR ALEXANDRE Admitting Unavailabl e WEST, DR CHRISTIAN Doyle Consulting Unavailable REQUEST, DR AMBER ESTRELLA Consulting Unavaila ble Unavailable [facility] Foster Unavailable Services, [facility] Primary Care Provider JOHN SUÁREZ Admitting Unavailable JOHN SUÁREZ Attending Unavailable SERVICES, [facility] Primary Care Unava ilable SERVICES, [facility] Primary Care Unava ilable ASHELY AYALA Attending Unavailable SERVICES, [facility] Primary Care Unava ilable ANGELA GONGORA Attending Unavailable SERVICES, [facility] Primary Care Unava ilable LEIGH SMALLS Attending Unavailable SERVICES, [facility] Primary Care Unava ilable JULISA LAZO Attending Unavailable SERVICES, [facility] Primary Care Unava ilable COLE BLACKMON Attending Unavailab le SERVICES, [facility] Primary Care Unava ilable Services, [facility] Primary Care Provider ROBERT MARRERO Primary Care [...] SAMUELS Attending Unavailable NANO BACK Attending Unavailable NANO BACK Attending Unavailable Allergies Allergy ClassificationReported Allergen(s)Allergy TypeDate of OnsetReaction(s) Facility (1 source)[facility]ent[facility]ilDrug [facility]ergyC[facility] Repository (3 sources)Azithromycin; Translations: [AZITHROMYCIN]Drug Ewbiwgo98-35-0577Bpx [facility] Repository (20 sources)AzithromycinDrug Arwsvbx44-61-1034Oiklwh And VomitingNOMS Healthcare Work Phone: (20 sources)Macrolides And KetolidesDrug Mzllbab46-65-8457WqjaxziJMUS Healthcare (20 sources)Wound Dressing AdhesiveDrug Gbnqnfi38-19-9759KPZM Healthcare (20 sources)metroNIDAZOLE; Translations: [METRONIDAZOLE]Drug Cqdvxvy62-77-5901TH intolerance, Nausea And VomitingNOMS Healthcare Work Phone: (6 sources)Adhesive agent; Translations: [ADHESIVE]Propensity to adverse reactions to xysp19-24-7333SqfMepnqv Health System (1 source)Adhesive agentPropensity to adverse reactions to igcl92-31-8659Tdflg [facility] (1 source)Adhesive bandage; Translations: [Adhesive Bandage]Propensity to adverse reactions (disorder)[facility] Repository (1 source)Azithromycin; Translations: [Zithromax][facility]rug [facility]ergyKn[facility] Rep[facility] (1 source)metroNIDAZOLE; Translations: [Flagyl][facility]rug [facility] Rep[facility] (1 source)Promethazine; Translations: [Phenergan][facility]rug [facility]Kn[facility] Repository Medications Current Medications MedicationDrug Class(es)DatesSig (Normalized)Sig (Original)[id number] 200 actuat albuterol 0.09 mg/actuat metered dose inhaler (4 sources)beta2-Adrenergic Agonisttake 2 puff(s) by inhalation every six hours as needed for wheezingalbuterol (PROVENTIL HFA;VENTOLIN HFA) 90 mcg/actuation inhaler Inhale 2 puffs every 6 (six) hours as needed for wheezing. 0 Active amoxicillin 500 mg oral tablet (4 sources)Penicillin-class Antibacterialtake 1 tablet by mouth in the morning, then take 1 tablet by mouth at bedtimeamoxicillin (AMOXIL) 500 MG tablet Indications: upper respiratory infection Take 1 tablet (500 mg total) by mouth in the morning and 1 tablet (500 mg total) before bedtime. Indications: a common cold. 0 Activebenzonatate 100 mg oral capsule (1 source)Non-narcotic AntitussiveStart: 32-68-3161ohed 1 capsule by mouth three times daily as needed for coughbenzonatate (TESSALON PERLES) 100 mg capsule Take 1 capsule (100 mg total) by mouth 3 (three) timesa day as needed for cough. 20 capsule 1 12/10/2024 ActivebusPIRone hydrochloride 10 mg oral tablet (2 sources)busPIRone (Buspar) 10 MG tablet every 12 (twelve) hours 0 Active docusate sodium 100 mg oral capsule (3 sources)Start: 09-07-2024 End: 64-63-3613iinm 1 capsule by mouth in the morningdocusate sodium (Colace) 100 MG capsule Indications: Constipation, unspecified constipation type Take 1 capsule (100 mg) by mouth in the morning and 1 capsule (100 mg) before bedtime. Do all this for10 days. 20 capsule 09/07/2024 09/17/2024 Activedoxylamine succinate 25 mg oral tablet (3 sources)Start: 04-05-2023 End: 36-14-7938wvmf 1 tablet by mouth once daily as needed for nauseadoxylamine (UNISOM) 25 mg tablet Indications: Nausea and vomiting during Take 1 tablet (25 mg total) by mouth nightly as needed for sleep or nausea for up to 30 days. 30 tablet 2 / Activeescitalopram 20 mg oral tablet (19 sources)Serotonin Reuptake InhibitorStart: 01-04-2025 End: 82-26-2763bekh 1 tablet by mouth once dailyescitalopram (Lexapro) 20 MG tablet Indications: Anxiety, generalized Take 1 tablet (20 mg) by mouth Daily 30 tablet 1 01/04/2025 ActiveStart: 11-23-2024 End: 51-23-0765eeea 1 tablet by mouth once dailyescitalopram (Lexapro) 10 MG tablet Indications: Episode of recurrent major depressive disorder, unspecified depression episode severity , Bipolar 1 disorder, depressed (HCC) , Anxiety, generalized ,PTSD (post-traumatic stress disorder) Take 1 tablet (10 mg) by mouth Daily 30 tablet 1 11/23/2024 01/04/2025 Discontinuedfolic acid 1 mg oral tablet (7 sources)Start: 65-66-3998kkoy 1 tablet by mouth in the morningfolic acid (FOLVITE) 1 mg tablet Indications: Folic acid deficiency Take 1 tablet (1 mg total) by mouth in the morning. 30 tablet 12 03/06/2023 Activemetoclopramide 10 mg oral tablet (20 sources)Dopamine-2 Receptor AntagonistStart: 07-20-2024 End: 72-89-9077fmtfwxbulmstem (Reglan) 10 MG tablet Indications: Nausea and vomiting in ([facility]) Take 1tablet (10 mg) by mouth in the morning and 1 tablet (10 mg) at noon and 1 tablet (10 mg) in the evening. Take before meals. Take 1 tablet by mouth 30 minutes prior to meals 3 times daily as needed for nausea. 90 tablet 09/08/2024 11/23/2024 Discontinuednaproxen 500 mg oral tablet (1 source)Nonsteroidal Anti-inflammatory DrugStart: 82-47-0642hqhh 1 tablet by mouth twice dailyNaproxen (Naprosyn) 500 mg tablet Active 500 MG PO Twice daily May 15, 2021 9:24pmondansetron 4 mg disintegrating oral tablet (11 sources)Serotonin-3 Receptor AntagonistStart: 11-21-2023 End: 42-29-4184uxua 1 tablet by mouth every six hours for nauseaondansetron ODT (Zofran-ODT) 4 MG disintegrating tablet Indications: Nausea and vomiting, unspecified vomiting type Take 1 tablet (4 mg) by mouth every 6 (six) hours if needed for nausea or vomiting 30 tablet 2 11/21/2023 01/14/2024 Discontinued Start: 04-23-2023 End: 43-39-1552yalw 1 tablet by mouth every six hours as needed for nausea and vomiting and nausea and nauseaondansetron ODT (Zofran-ODT) 4 MG disintegrating tablet Indications: Nausea Take 1 tablet (4 mg) bymouth every 6 (six) hours if needed for nausea or vomiting 30 tablet 2 04/23/2023 05/23/2023 Activetake 1 tablet by mouth every eight hours as needed for nausea and vomitingondansetron (ZOFRAN) 4 mg tablet Take 1 tablet (4 mg total) by mouth every 8 (eight) hours as needed for nausea or vomiting. Activeprenatal 25/iron fum/folic/dha (-1 ORAL) (5 sources) 25/iron fum/folic/dha (-1 ORAL) Take by mouth. Activeprenatal 25/iron fum/folic/dha (-1 ORAL) Take by mouth. 0 Active 27-1 MG tablet (20 sources)Start: 44-92-5041zssp 1 tablet by mouth once dailyPrenatal 27-1 MG tablet Take 1 tablet by mouth Daily 03/13/2022 Activeprochlorperazine 25 mg rectal suppository (1 source)PhenothiazineStart: 14-45-6163qwls 25 mg rectal route every twelve hours as needed for nausea and vomitingprochlorperazine (COMPAZINE) 25 mg suppository Insert 1 suppository (25 mg total) into the rectum every 12 (twelve) hours as needed for nausea or vomiting. 12 suppository 08/03/2024 Active progesterone 100 mg vaginal insert (1 source)Progesteroneprogesterone (ENDOMETRIN) 100 mg vaginal insert Insert 1 tablet (100 mg total) into the vagina in the evening. ActiveProgesterone 200 MG suppository (6 sources)Start: 06-30-2024 End: 84-46-1315Bhwtgoueoiep 200 MG suppository Indications: History of miscarriage Insert 200 mg into the vagina at bedtime Insert suppository vaginally every night at bedtime until 12 weeks gestation 30 suppository 2 06/30/2024 07/30/2024 ActiveStart: 05-13-2024 End: 74-24-5707Fnmfsurakeqi 200 MG suppository Indications: History of miscarriage Insert 200 mg into the vagina at bedtime Insert suppository vaginally every night at bedtime until 12 weeks gestation 30 suppository 2 05/13/2024 06/12/2024 ActiveStart: 56-37-0704Zvnalvcaegwj 200 MG suppository Indications: H/O miscarriage, currently , first trimester Insert 1 suppository into the vagina at bedtime 30 suppository 3 05/02/2023 Active pyridoxine hydrochloride 25 mg oral tablet (5 sources)Start: 04-05-2023 End: 59-31-1035cveh 1 tablet by mouth four times daily at mealtimepyridoxine, vitamin B6, (B-6) 25 mg tablet Indications: Nausea and vomiting during Take 1tablet (25 mg total) by mouth 4 (four) times a day with meals and nightly for 30 days. 150 tablet 05/05/2023 Active Problems Active Problems Problem ClassificationProblemDateDocumented DateEpisodic/ChronicAbdominal pain (6 sources)Pelvic and perineal pain; Translations: [Abdominal pain]Onset: 11-01-2876SnvhoiovClbvjfm disorders (6 sources)Generalized anxiety disorder; Translations: [Generalized anxiety disorder]81-94-1772PifhdznCrqviidjmv associated with dizziness or vertigo (5 sources)Dizziness; Translations: [Dizziness and giddiness]Onset: 10-15-2024 17-66-7514MavkcqaqRhkizdjlggdmx symptoms and ill-defined conditions (2 sources)Blood in urine; Translations: [Hematuria, unspecified]01-19-2025 EpisodicImmunizations and screening for infectious disease (3 sources)Contact with and (suspected) exposure to infections with a predominantly sexual mode of transmission; Translations: [Exposure to sexually transmissible disorder]Onset: 894584-14-2407VurhpyzbUptevpbnl disorders (4 sources)Irregular menstruation, unspecified; Translations: [Missed period] Onset: 86-62-6601SzlqjleLddx disorders (6 sources)Recurrent major depressive episodes; Translations: [Major depressive disorder, recurrent, unspecified]00-19-3936TdvxrxfSmfllm and vomiting (3 sources)Vomiting, unspecified; Translations: [Nausea with vomiting, unspecified]Onset: 14-33-2232RwwggzcdMexmx circulatory disease (1 source)Orthostatic hypotension; Translations: [Orthostatic hypotension]Onset: 67-61-0492NsdxifpiTwxmk complications of ; puerperium affecting management of mother (4 sources)Retained portions of placenta and membranes, without hemorrhage; Translations: [RETAIN PORTION PLCNTA MEMB NO HEMOR]Onset: 55-49-6017Wkpsxurz Other complications of (5 sources)Missed ; Translations: [MISSED ]Onset: 05-17-2022 EpisodicOther complications of (2 sources) size does not accord with dates; Translations: [Uterine size- date discrepancy, unspecified trimester]34-76-9354BtksytxuDzxov gastrointestinal disorders (2 sources)Constipation; Translations: [Constipation, unspecified]09-07-2024 EpisodicOther lower respiratory disease (4 sources)Dyspnea; Translations: [Shortness of breath]35-19-8737EstmkzeqSicrw and delivery including normal (20 sources)Encounter for supervision of normal , unspecified, first trimester; Translations: [Encounter for supervision of normal , unspecified, second trimester]Onset: 11-53-4079FewmzzpoPeiys screening for suspected conditions (not mental disorders or infectious disease) (6 sources)Alpha-fetoprotein blood test status; Translations: [Encounter for screening for raised alphafetoprotein level]22-09-6550AumskriwImfrt upper respiratory infections (3 sources)Acute pharyngitis, unspecified; Translations: [Acute pharyngitis, unspecified]Onset: 28-63-9135CuqbpdboOlhhuvdg codes; unclassified (2 sources)Gestation period, 13 weeks; Translations: [13 weeks gestation of ]03-34-1064VcconbosHetbtvrd codes; unclassified (2 sources)Gestation period, 17 weeks; Translations: [17 weeks gestation of ]89-95-7346FvlpzvgoOzjfbmnt codes; unclassified (2 sources)Gestation period, 20 weeks; Translations: [20 weeks gestation of ]28-13-8616QgggqmdfPxzyqxal codes; unclassified (2 sources)Gestation period, 24 weeks; Translations: [24 weeks gestation of ]05-12-8848LqhtcrtyHncukakr codes; unclassified (4 sources)H/O: miscarriage; Translations: [Personal history of other complications of , childbirth and the puerperium]06-59-1661Zkrbfbxs Residual codes; unclassified (2 sources)Gestation period, 28 weeks; Translations: [28 weeks gestation of ]87-32-9672SyiigfgyZbcoiqkp codes; unclassified (2 sources)Gestation period, 30 weeks; Translations: [30 weeks gestation of ]43-76-2035LicilqfrPrcxzzwe codes; unclassified (2 sources)Pain, unspecified; Translations: [Pain, unspecified]Onset: 12-10-2024 EpisodicResidual codes; unclassified (2 sources)Gestation period, 32 weeks; Translations: [32 weeks gestation of ]10-69-3399GqcgmwscDnfhideu codes; unclassified (2 sources)Gestation period, 34 weeks; Translations: [34 weeks gestation of ]01-70-6760OfnqtuuoBldmjlq and strains (1 source)Sprain of ankle; Translations: [Sprain of unspecified ligament of unspecified ankle, initial encounter]17-17-4059SmkclvikRbegckigrly injury; contusion (1 source)Contusion of knee; Translations: [Contusion of right knee, initial encounter]14-35-1676KqzjyvhsOmxweuh (1 source)Syncope and collapse; Translations: [Syncope and collapse]Onset: 91-51-4629QbjsrtjwIhebuks (1 source)SyncopeOnset: 66-39-9349Rhhmizsbqvcl (1 source)Vomiting During PregnancyOnset: 50-98-0396Aakfqjjtscxw (1 source)Threatened MiscarriageOnset: 15-27-3546Remmhtugaurl (1 source)Cold Like SymptomsOnset: 60-68-1702Lwmkrwhkpivd (1 source)Cough, unspecified; Translations: [Cough, unspecified]Onset: 13-58-4496Vtvqyak tract infections (2 sources)Urinary tract infectious disease; Translations: [Urinary tract infection, site not specified]24-08-5401JzqskfcsAboap infection (1 source)Viral infection, unspecified; Translations: [Viral infection, unspecified]Onset: 58-64-6470BabhqffdHejei infection (1 source)COVID-19; Translations: [COVID-19]Onset: 04-22-2024 Past or Other Problems Problem ClassificationProblemDateDocumented DateEpisodic/ChronicEsophageal disorders (1 source)Gastro-esophageal laceration-hemorrhage syndrome; Translations: [GASTRO-ESOPHAGEAL LAC-HEMORR SYND]Onset: 47-34-4538DchkthhmZnkjwqfaic during ; abruptio placenta; placenta previa (1 source)Threatened ; Translations: [Threatened ]Onset: 91-11-2917BjbretpeRgwczydkhwwk diseases of female pelvic organs (1 source)Inflammatory disease of cervix uteri; Translations: [Inflammatory disease of cervix uteri]Onset: 38-74-7989UwsvcarbDeqn disorders (16 sources)Mood disordersOnset: 365881-53-0179Ldxic complications of (4 sources)Mild hyperemesis gravidarum; Translations: [MILD HYPEREMESIS GRAVIDARUM]Onset: 35-33-9395ChhkdvmkZzexo complications of (1 source)Diseases of the digestive system complicating , first trimester; Translations: [DZ DIGESTIVE SYS COMP PREG 1ST TRI]Onset: 04-04-2022 EpisodicOther complications of (1 source)Nausea and vomiting; Translations: [Vomiting of , unspecified]40-02-5032IsgklkxmJowuz complications of (3 sources)Vomiting of , unspecified; Translations: [Unspecified vomiting of , unspecified as to episode of care or not applicable] Onset: 261047-27-9594ZlapraloWrurvkfi codes; unclassified (1 source)8 weeks gestation of ; Translations: [8 WEEKS GESTATION OF ]Onset: 40-57-8954HsgzhhcpDblgffjn codes; unclassified (1 source)Less than 8 weeks gestation of ; Translations: [< 8 WEEKS GESTATION ]Onset: 21-55-1248ZybmkcxnJouajbaq codes; unclassified (20 sources)Gestation period, 38 weeks; Translations: [38 weeks gestation of ]Onset: 914102-85-0927TpahpztoQwoqafptgtuc (1 source)Cough, unspecified; Translations: [Cough, unspecified]Onset: 87-27-6516NLGBQGF: Highlighted row has been ruled out!Unclassified (1 source)No known active zemhhbzy02-71-4762 Results Test NameValueInterpretationReference RangeFacilityUrinalysis macro (dipstick) panel (U)on 53-55-3454Sbtfopwqt, UANegativeNegative - 4(70) +++ mg/dLNOMS HealthcareBlood, UAPositiveNegative - 50 Villa/mcLNOMS HealthcareComment on above: 1+Clarity, UACloudyNOMS HealthcareColor, UAYellowNOMS HealthcareGlucose, UA NegativeNegative - 2000(110) ++++ mg/dLNOMS HealthcareInterpretation and review of laboratory resultsAbnormalNOMS HealthcareKetones, UANegativeNegative - 160(16) ++++ mg/dLNOMS HealthcareLeukocytes, UAPositiveNegative - 500+++ Pierre/mcL NOMS HealthcareComment on above:1+Nitrite, UANegativeNegative - PositiveNOMS HealthcarepH, UA6.05 - 9NOMS HealthcareProtein, UAPositiveNegative - 2000(20) ++++ mg/dLNOMS HealthcareComment on above:TraceSpec Grav, UA1.0251 - 1.03NOMS HealthcareUrobilinogen, UA0.20.2 - 12 mg/dLNOMS HealthcareNOMS HealthcareNo Panel Informationon 34-52-2544Qaubotjhhjraji and review of laboratory results AbnormalNOMS HealthcareCLINISYNCNOMS HealthcareTBH UA (CLEAN/CATCH) WIRE LATHER/MICRO IF IND.on 88-77-1945AMRABCEJI URINESMALLAbnormalNEGATIVENOMS HealthcareBLOOD URINE LARGEAbnormalNEGATIVENOMS HealthcareClarity (U)CLEARCLEARNOMS HealthcareColor (U)YELLOWYELLOWNOMS HealthcareGLUCOSE URINE UANegativeNEGATIVE mg/dLNOMS HealthcareKetones Ql (U)TRACEAbnormalNEGATIVE mg/dLNOMS HealthcareLeukocyte esterase Test strip Ql (U)TRACEAbnormalNEGATIVENOMS HealthcareNITRITE URINE NegativeNEGATIVENOMS HealthcarepH (U)6.0 [pH]5.0 - 9.0NOMS HealthcarePROTEIN URINETRACENEG/TRACE mg/dLMercy Hospital South, formerly St. Anthony's Medical CenterSPECIFIC GRAVITY URINE>=1.030Abnormal 1.005 - 1.025NOWY HealthcareURINE MICROSCOPIC INDICATEDYESNOMosaic Life Care [facility] St[facility] UROBILINOGEN URINE1.0 EU/dL0.2 - 1.0 EU/dLNOMosaic Life Care at St. JosephTB URINE MICROSCOPIC ONLYon 52-80-7994BIEXXYTU URINETRACEAbnormalNONE SEEN #/HPFNOMS HealthcareCAST SEEN?NONE SEENNONE SEEN #/[facility] HEALTHNOWY HealthcareCRYSTALS SEEN?SeenAbnormalNone Seen #/[facility] HospitalMUCUS URINESMALLAbnormalNONE SEENNOMosaic Life Care at St. JosephSQUAMOUS EPITHELIAL CELL URINEFEWAbnormalNONE/RARE #/[facility] CenterH CALCIUM OXALATE CRYSTALS URINEMODERATENOCapital Region Medical Center JRI81-15CymsspcvFKHONew [facility] WBC2-5AbnormalNONE SEEN #/HPFNOWY HealthcareURINE CULTURE INDICATEDNONOMS HealthcareUS OB FOLLOW UP TRANSABDOMINAL APPROACHon 26-07-7914YN OB FOLLOW UP TRANSABDOMINAL APPROACHFINDINGS: Comparison November 23 and October 26, 2024. [...] March 14, 2025. The current estimated weight mf0733 grams (4 pounds, 4 ounces). IMPRESSION: Single, live intrauterine , current sonographic age of 32 weeks and 2 days, with an estimated date of delivery of March 14, 2025 (prior MONIQUE March 19, 2025). * Estimated Weight (g) by Percentile is based upon an accurate estimated age based on last menstrual period. TRANSCRIBED BY: ELECTRONICALLY SIGNED BY: Sridevi ScottalNot AvailableComment on above:Order Comment: US OB SCAN FOR GROWTH Estimated Date of Delivery: 03/14/25 Gestational Age as of 01/04/2025: 62w3sRnaskbuvhz macro (dipstick) panel (U)on 80-47-4220Elkfqzonk, UANegativeNegative - 4(70) +++ mg/dLNOMS HealthcareBlood, UAPositiveNegative - 50 Villa/mcLNOMS HealthcareClarity, UAClearNOMS Healthcare Color, UAYellowNOMS HealthcareGlucose, UANegativeNegative - 1999(110) ++++ mg/dL NOMS HealthcareInterpretation and review of laboratory resultsAbnormalNOMS HealthcareKetones, UANegativeNegative - 160(16) ++++ mg/dLNOMS Healthcare Leukocytes, UATraceNegative - 500+++ Pierre/mcLNOMS HealthcareNitrite, UANegative Negative - PositiveNOMS HealthcarepH, UA6.55 - 9NOMS HealthcareProtein, UA1+ Negative - 1999(20) ++++ mg/dLNOMS HealthcareSpec Grav, UA1.0251 - 1.03NOMS HealthcareUrobilinogen, UA2.00.2 - 12 mg/dLNOMS HealthcareNOMS Healthcare Urinalysis macro (dipstick) panel (U)on 72-71-0168Ccjsaqtrp, UANegativeNegative - 4(70) +++ mg/dLNOMS HealthcareBlood, UAPositiveNegative - 50 Villa/mcLNOMS HealthcareClarity, UAClearNOMS HealthcareColor, UAYellowNOMS HealthcareGlucose, UANegativeNegative - 1999(110) ++++ mg/dLNOMS HealthcareInterpretation and review of laboratory resultsAbnormalNOMS HealthcareKetones, UANegativeNegative - 160(16) ++++ mg/dLNOMS HealthcareLeukocytes, UAPositiveNegative - 500+++ Pierre/mcLNOMS HealthcareNitrite, UANegativeNegative - PositiveNOMS HealthcarepH, UA65 - 9NOMS HealthcareProtein, UAPositiveNegative - 2000(20) ++++ mg/dLNOMS HealthcareSpec Grav, UA1.0251 - 1.03NOMS HealthcareUrobilinogen, UA1.00.2 - 12 mg/dLNOMS HealthcareNOWY HealthcareUrinalysis macro (dipstick) panel (U)on 14-44-4440Axnogxhbd, UANegativeNegative - 4(70) +++ mg/dLNOMS HealthcareBlood, UANegativeNegative - 50 Villa/mcLNOMS HealthcareClarity, UAClearNOMS Healthcare Color, UAAmberNOMS HealthcareGlucose, UANegativeNegative - 2000(110) ++++ mg/dL [facility] HealthcareInterpretation and review of laboratory resultsAbnormalNOMS HealthcareKetones, UANegativeNegative - 160(16) ++++ mg/dLNOMS Healthcare Leukocytes, UANegativeNegative - 500+++ Pierre/mcLNOMS HealthcareNitrite, UA NegativeNegative - PositiveNOMS HealthcarepH, UA65 - 9NOMS HealthcareProtein, UA NegativeNegative - 2000(20) ++++ mg/dLNOMS HealthcareSpec Grav, UA1.031 - 1.03 NOMS HealthcareUrobilinogen, UA0.20.2 - 12 mg/dLNOWY HealthcareNOWY Healthcare Coding Summaryon 19-56-2832Wriwbb SummaryHTMLBase 64 JhhtfpxzTLf6uDl+PGhlYWQ+BY8TKERsY84ecXQnpE7cU9BVSGqWJlsjNDTIESlUCtArheNeEU7bbDCy ZXJu [file] ZXI (more content not included)...[facility] HospitalCoding Summaryon 22-43-1359Obrlmj SummaryHTMLBase 64 GbxzycxiTSn4eAc+PGhlYWQ+SF2FWLPdB30ufYKdqA7dU5YUTWvSGstkZLDXAMnGNrLifcVrZA0ajXPf ZXJu [file] YXB (more content not included)...[facility].QC SARS-CoV-2 (COVID- 19)/Flu/RSV (GeneXpert)on 72-71-5730Cfbwxnfg ControlAshtabula County Medical Center Comment on above:Order Comment: Ordered by Discern.[[email or web address]_QC]Performed By: #### [id number] ####[facility] (DEFAULT)[address] [place] [phone]/Flu/RSV (GeneXpert)on 59-12-1082Gvl A (GXpert COVFLURSV)NegativeNormalNegLima City Hospital HospitalComment on above:Performed By: #### [id number] ####[facility] (DEFAULT)[address] [place] [phone] B (GXpert COVFLURSV)NegativeNormalNegLima City Hospital HospitalComment on above:Performed By: #### [id number], [id number] ####[facility] (DEFAULT)[address] [place] [address] 52222VPK (GXpert COVFLURSV) NegativeNormalNegLima City Hospital HospitalComment on above:Performed By: #### [id number], [id number] ####[facility] (DEFAULT)[address] [place] [address] 85547RHIO-DrS-9 (COVID-19) RNA MILY+probe Ql (Unsp spec)Negative NormalNegProMedica Toledo HospitalComment on above:Result Comment: Performed by PCR methodology.Performed By: #### [id number], [id number] ####[facility] (DEFAULT)[address] [place] [address] 79143AP Note-Nursingon 68-81-3055JP Note-NursingPt. C/O a cough and chest discomfort that started one week ago. PT. was seen in Urgent Care last Saturday and diagnosed with URI. pt. states that she was also given Telson pearls by her OB. PT. states she has pain when she coughs. pt. is 27 1/2 weeks . Pt. has been taking Tylenol for discom fort. pt. is A&O x4. PT. has a steady gait. oSelect [facility] HospitalC Throaton 12-12-2024 ThroatNormal throat jonny isolated No pathogens isolatedToledo HospitalComment on above:Performed By: #### [id number] ####[facility] (DEFAULT)[address] [place] [address] 91336 CHLAMYDIA/GC BY PCR TEA SWABon 16-29-9257QKRDTUJTG/GC BY PCR TEA SWAB CHLAMYDIA DNA(PCR) Negative Chlamydia trachomatis not detected by nucleic acid amplification. This does not exclude the possibility of infection because results are dependent on adequate specimen collection. GONORRHOEAE DNA(PCR) Negative Neisseria gonorrhoeae not detected by nucleic acid amplification. This does not exclude the possibility of infection because results are dependent on adequate specimen collection.NormalProMedica Arroyo Grande Community HospitalComment on above:Performed By: #### CBCA, [facility], 1987-08 #### [facility] ([id number]) [address] [place] [address], [place], [place] [address]UDNA Rapid CoV-2 (COVID-19) Antigen/ Flu A&Bon 12-10-2024 Influenza A POCTNegativeNocommunity healthNegProMedica Toledo HospitalComment on above: Performed By: #### [id number] ####[facility] (DEFAULT)[address] [place] [address] 05035Ucplqygoj B POCTNegativeNormalNegProMedica Toledo HospitalComment on above:Performed By: #### [id number] ####[facility] (DEFAULT)[address] [place] [address] 66484CJVX-TvJ-2 (COVID-19) RNA MILY+probe Ql (Unsp spec)Not detectedNoSelect Medical OhioHealth Rehabilitation HospitalComment on above: Performed By: #### [id number] ####[facility] (DEFAULT)[address] [place] [address] 31505SJEF Rapid Strepon 12-10-2024S. pyogenes Ag IA Ql (Unsp spec)NegativeInvalid Interpretation CodeKnox Community HospitalComment on above: Performed By: #### [id number], [id number] #### [facility] (DEFAULT) [address] [place], [place] [address]QNDDGNGRNHhs 55-28-0080Jjrffnpxp Ql (U)NegativeNormal NegativeGalion HospitalComment on above:Performed By: #### HILLARY CHI, 1986-08 #### [facility] ([id number]) [address] [place] [address], [place] [address]CJAYY/HGBSmallAbnormalNegativeGalion HospitalComment on above:Performed By: #### HILLARY CHI, 1986-08 #### [facility] ([id number]) [address] [place] [address], [place] [address]JN OXALATE CRYSTALSPresentAbnormalNoneProMedMarian Regional Medical CenterComment on above:Performed By: #### HILLARY CHI, 1986-08 #### [facility] ([id number]) [address] [place] [address] 05566Ofhcu (U)YellowNormalYellowProHca Houston Healthcare Medical CenterComment on above:Performed By: #### HILLARY CHI, 1986-08 #### [facility] ([id number]) [address] [place] [address], [place] [address]Wmpljut Ql (U)NegativeNormalNegative, 250 mg/dLGalion HospitalComment on above:Performed By: #### HILLARY CHI, 1986-08 #### [facility] ([id number]) [address] [place] [address], [place] [address]Fmfnbkf Ql (U)NegativeNormalNegativeGalion Hospital Comment on above:Performed By: #### HILLARY CHI, 1986-08 #### [facility] ([id number]) [address] [place] [address] [place] [address]Pjmvhjdet esterase Test strip Ql (U)NegativeNormalNegative ProMedica [facility] Community HospitalComment on above:Performed By: #### HILLARY CHI, 1986-08 #### [facility] ([id number]) [address] [place] [address] 12573Eknwtgs Ql (U)NegativeNormalNegLutheran Hospital Comment on above:Performed By: #### HILLARY CHI, 1986-08 #### [facility] ([id number]) [address] [place] [address] 92365XI,URINE6.6Ajnjyq0.0-8.5PMercy Health Lorain HospitalComment on above:Performed By: #### HILLARY CHI, 1986-08 #### [facility] ([id number]) [address] [place] [address] 62335Wztrngj Ql (U)NegativeNormalNegLutheran Hospital Comment on above:Performed By: #### HILLARY CHI, 1986-08 #### [facility] ([id number]) [address] [place] [address] 07684H.B.MDNKJ3Yqisof8-3YgjMdjyecMercy Health Lorain HospitalComment on above: Performed By: #### HILLARY CHI, 1986-08 #### [facility] ([id number]) [address] [place] [address] 82730Iwpbhoar gravity (U) [Rel density]1.404Grjqcr4.003-1.035 [facility] Community HospitalComment on above:Performed By: #### HILLARY CHI, 1986-08 #### [facility] ([id number]) [address] [place] [address] 88376ESQPYDVO UBNKUFJRYP1Guzdqp6-4RlcUklgts [facility]ont HospitalComment on above:Performed By: #### HILLARY CHI, 1986-08 #### [facility] ([id number]) [address] [place] [address] 67726QSLRQTVQHLcpvpAzzmnrWncgoStvPejjtp [facility]ont HospitalComment on above:Performed By: #### ARTI [facility], 1987-08 #### [facility] ([id number]) [address] [place] [address] 70590QMMLGBVNHZMA6.0 eu/dLNormal0.2 eu/dL, 1.0 eu/dLGalion HospitalComment on above:Performed By: #### ARTI [facility], 1987-08 #### [facility] ([id number]) [address] [place] [address] 82953S.B.PWCBW2Irmniq8-8BumJapluz [facility] Community HospitalComment on above: Performed By: #### ARTI [facility], 1987-08 #### [facility] ([id number]) [address] [place] [address] 91403FDZII CULTUREon 53-88-7698Ljragtbg identified Cx Nom (U)CULTURE RESULTS 10-50,000 ORGANISMS/mL NORMAL UROGENITAL FLORANoalGalion Hospital Comment on above:Performed By: #### ARTI [facility], 1987-08 #### [facility] ([id number]) [address] [place] [address] 98876GWBQRGBDK PANEL PCRon 12-02-4390EKRLNOAYW PANEL PCRBACT. VAGINOSIS DNA Not Detected Qualitative results are [...] accordance with clinical presentation to determine patient diagnosis.NormalProHca Houston Healthcare Medical CenterComment on above:Performed By: #### CBCA, CMP, 1986- #### [facility] ([id number]) [address] [facility] [place], FIRST FLO[address] [place], [place] [address]PHT CBC WITH AUTO DIFFon 17-73-5985MIZQSTGNP ABSOLUTE WNRD3CAPF HealthcareBasophils/100 WBC (Bld)0.3 %0.2 - 2.0 %NOMS HealthcareEosinophils/100 WBC (Bld)0.2 %Low0.9 - 7.0 %NOMS HealthcareErythrocyte distribution width (RBC) [Ratio]12.6 %11.0 - 15.0 %NOMS HealthcareHematocrit (Bld) [Volume fraction]36.7 %36.0 - 48.0 %NOMS HealthcareHemoglobin (Bld) [Mass/Vol]11.9 g/dLLow12.0 - 16.0 g/dLNOWY HealthcareIMMATURE GRANULOCYTES ABS AUTO0.1HighNOMS HealthcareImmature granulocytes/100 WBC (Bld)0.7 %High0.0 - 0.5 %NOMS HealthcareInterpretation and review of laboratory resultsAbnormalNOMS HealthcareLYMPHOCYTES ABSOLUTE AUTO3.1 NOMS HealthcareLymphocytes/100 WBC (Bld)21.7 %20.5 - 60.0 %NOM HealthcareMCH (RBC) [Entitic mass]27.2 pg26.7 - 34.0 pgNOWY HealthcareMCHC (RBC) [Mass/Vol] 32.4 g/dL29.9 - 35.2 g/dLNOMosaic Life Care at St. JosephMCV (RBC) [Entitic vol]83.8 fL81.0 - 99.0 fLNOWY HealthcareMONOCYTES ABSOLUTE AUTO1.3HighNOMS HealthcareMonocytes/100 WBC (Bld)9.2 %1.7 - 12.0 %NOMS HealthcareNEUTROPHILS ABSOLUTE AUTO9.5HighNOMS HealthcareNeutrophils/100 WBC (Bld)67.9 %43.0 - 75.0 %NOMS HealthcarePlatelet mean volume (Bld) [Entitic vol]10.1 fL9.5 - 13.5 fLNOWY HealthcareTBH EO #0NOMS HealthcareTBH YBI547QMBO HealthcareTBH RBC4.38NOMS HealthcareTBH LBT63WqhrRSHF HealthcareCLINISYNCNOMS HealthcareUS OB LIMITED 1+ FETUSESon 06-02-8874RV OB LIMITED 1+ FETUSESEXAM: US OB LIMITED 1+ FETUSES HISTORY: Follow [...] II, MD, PHD at 24-Nov-2024 07:59:26 AM [facility] TeleradiologyNormalNot AvailableComment on above:Order Comment: US OB INCOMPLETE ANATOMY Estimated Date of Delivery: 03/14/25 Gestational Age as of 11/02/2024: 59t7rQhuguwqzvn macro (dipstick) panel (U)on 10-79-4891Iagwjlwyj, UAPositiveNegative - 4(70) +++ mg/dLNOMS HealthcareComment on above:1+Blood, UAPositiveNegative - 50 Villa/mcLNOMS HealthcareComment on above:2+Clarity, UAClearNOMS HealthcareColor, UAAmberNOMS HealthcareGlucose, UA NegativeNegative - 2000(110) ++++ mg/dLNOMS HealthcareInterpretation and review of laboratory resultsAbnormalNOMS HealthcareKetones, UANegativeNegative - 160(16) ++++ mg/dLNOMS HealthcareLeukocytes, UAPositiveNegative - 500+++ Pierre/mcL NOMS HealthcareComment on above:1+Nitrite, UANegativeNegative - PositiveNOMS HealthcarepH, UA65 - 9NOMS HealthcareProtein, UAPositiveNegative - 2000(20) ++++ mg/dLNOMS HealthcareComment on above:1+Spec Grav, UA1.031 - 1.03NOMS Healthcare Urobilinogen, UA0.20.2 - 12 mg/dLNOMS HealthcareNOMS HealthcareTBH UA (CLEAN/CATCH) WIRE LATHER/MICRO IF IND.on 58-96-7689XHKPACIMQ URINESMALLAbnormalNEGATIVE NOMSelect Specialty HospitalBLOOD URINETRACE-INEGATIVENOMS HealthcareClarity (U)CLEARCLEAR NOMS HealthcareColor (U)YELLOWYELLOWNOWY HealthcareGLUCOSE URINE UANegative NEGATIVE mg/dLNOWY HealthcareInterpretation and review of laboratory results AbnormalNOMS HealthcareKetones Ql (U)15 mg/dLAbnormalNEGATIVENOWY Healthcare Leukocyte esterase Test strip Ql (U)NegativeNEGATIVENOMS HealthcareNITRITE URINE NegativeNEGATIVENOMS HealthcarepH (U)5.5 [pH]5.0 - 9.0NOMS HealthcarePROTEIN URINENegativeNEG/TRACE mg/dLNOWY HealthcareSPECIFIC GRAVITY URINE>=1.030Abnormal 1.005 - 1.025NOWY HealthcareURINE MICROSCOPIC INDICATEDYESNOWY Healthcare UROBILINOGEN URINE1.0 EU/dL0.2 - 1.0 EU/dLNOWY HealthcareCLINISYNCNOMS HealthcareAFP, SERUM, OPEN SPINA BIFIDAon 21-84-7111IFC MOM1.64.[facility] AFP VALUE69.3 ng/mL.NOMS HealthcareCOMMENT:Comment.NOMS HealthcareComment on above:Simi Ewing, Ph.D., [facility] Director References: Available Upon Request. Multiples Of Median Cutoffs For AFP Elevations Andre 2.5 Black 2.8 IDD 2.0 Twins 4.5 Abbreviation Definitions IDD - Insulin Dep Diabetes OSBR - Open Spina Bifida Risk For further inquiries contact [employer] at [phone]. This test was developed and its performance characteristics determined by [employer]. It has not been cleared or approved by the Food and Drug Administration. Performed at: [facility], [place], [place] [id number] Entertainment Lawyer: Mahendra Adam [facility], Phone: [phone] GEST. AGE ON COLLECTION DATE20.1. weeksNOMS HealthcareGESTAT. AGE BASED ON Ultrasound.NOMS HealthcareComment on above:17.1 on 10/05/2024 Recalculations are not recommended when gestational dating by LMP and ultrasound are within 10 days. INSULIN DEP DIABETESNo.NOMS HealthcareINTERPRETATIONComment.[facility] Healthcare Comment on above:Interpretation: Screen Negative This result is screen negative for [...] Customer Services to discuss available options. The [employer] recommends amniocentesis be offered to women age 35 and older. MATERNAL AGE AT EDD23.4. yrNOWY HealthcareMULTIPLE GESTATIONNo.[facility] OSBR RISK 1 IH1524.[facility] HealthcareRACECaucasian.[facility] Medical CenterRESULTSReport. [facility] Medical CenterTEST RESULTS:Negative.[facility] Medical CenterBormmvvzafYRFOGJ135. lbQuincy Valley Medical Center HealthcarePREGNANCY N N ULTRASOUND [id number] 1 17 N 1 Y 251 N N N N N White/ CLINISYStarr Regional Medical CenterCA ECHO DOPPLER COMPLETEon 87-60-3684DbcGreenwald[place] [address] Cardiology Report Signed Patient: LIA DESAI MR#: [id number] : 2000 Acct:[id number] Age/Sex: 24 / F ADM Date: 10/27/24 Loc: CARD Attending Dr: Robert Marrero D.O. Ordering Physician: Robert Marrero D.O. Date of Service: 10/27/24 Procedure(s): CA echo doppler complete Accession Number(s): [id number] cc: Robert Marrero D.O.; Physician,Non-Staff M.DMarisabel Patient Name: LIA DESAI MR#: [id number] : 2000 Exam Date: 10/27/2024 Ordering Doctor: [...] Dictated By: APOLLO TENA (more content not included)...TBHRadiology, Radiologist, MD - 10/28/2024 [place] [address] Cardiology Report Signed Patient: LIA DESAI MR#: [id number] : 2000 Acct:[id number] Age/Sex: 24 / F ADM Date: 10/27/24 Loc: CARD Attending Dr: Robert Marrero D.O. Ordering Physician: Robert Marrero D.O. Date of Service: 10/27/24 Procedure(s): CA echo doppler complete Accession Number(s): [id number] cc: Robert Marrero D.O.; Physician,Non-Staff Nena Patient Name: LIA DESAI MR#: [id number] : 2000 Exam Date: 10/27/2024 Ordering Doctor: [...] TENA Signed By: 10/28/241843 DD/ 42 TD/TT: Data Entry Operator: AHSAN HealthcareRadiology Study observation (narrative)[facility] Medical CenterCA ECHO DOPPLER COMPLETEOrdered By: Radiologist Radiology on 18-52-9352QINE Healthcare Work Phone: ecg 12-LEADon [phone] [address] Electrocardiograph Report Signed Patient: LIA DESAI MR#: [id number] : 2000 Acct:[id number] Age/Sex: 24 / F ADM Date: 10/27/24 Loc: CARD Attending Dr: Robert Marrero D.O. Ordering Physician: Robert Marrero D.O. Date of Service: 10/27/24 Procedure(s): ECG 12 lead Accession Number(s): [id number] cc: [facility] Test Date: 2024-10-27 Pat Name: LIA DESAI Department: Room: - Gender: Female Health Care Manager: : 2000 Requested By: ROBERT MARRERO Order Number: [id number] Reading MD: APOLLO TENA M.D. Measurements Intervals Sterling Rate: 96 P: 41 ME: 104 QRS: 52 QRSD: 86 T: 21 QT: 334 QTc: 424 Interpretive Statements SINUS RHYTHM WITH SHORT ME INTERVAL MINIMAL ST DEPRESSION [0.025+ mV ST DEPRESSION] Abnormal ECG No previous ECG available for comparison Electronically Signed On 10-28-2024 7:03:40 EDT by APOLLO TENA M.D. Dictated By: APOLLO TENA Signed By: 10/28/2470210/28/24702 DD/ 1137 TD/TT: Data Entry Operator:TBHRadiology, Radiologist, - 10/28/2024 [place] [address] Electrocardiograph Report Signed Patient: LIA DESAI MR#: [id number] : 2000 Acct:[id number] Age/Sex: 24 / F ADM Date: 10/27/24 Loc: CARD Attending Dr: Robert Marrero D.O. Ordering Physician: Robert Marrero D.O. Date of Service: 10/27/24 Procedure(s): ECG 12 lead Accession Number(s): [id number] cc: [facility] Test Date: 2024-10-27 Pat Name: LIA DESAI Department: Room: - Gender: Female Health Care Manager: : 2000 Requested By: ROBERT MARRERO Order Number: [id number] Reading MD: APOLLO MOUKARBEL, M.D. Measurements Intervals Sterling Rate: 96 P: 41 ME: 104 QRS: 52 QRSD: 86 T: 21 QT: 334 QTc: 424 Interpretive Statements SINUS RHYTHM WITH SHORT ME INTERVAL MINIMAL ST DEPRESSION [0.025+ mV ST DEPRESSION] Abnormal ECG No previous ECG available for comparison Electronically Signed On 10-28-2024 7:03:40 EDT by APOLLO TENA M.D. Dictated By: APOLLO TENA Signed By: 10/28/24 0710/28/24702 DD/ 1137 TD/TT: Data Entry Operator: AlectorKaci Emerging Technology CenterTAMMYZubie 12-LEADOrdered By: Radiologist Radiology on 14-77-4736FWHK Healthcare Work Phone: ECG 12-LEADon 18-46-8526Oixxfkkac Study observation (narrative)NOMShot StatsUS OB 14+ WEEKS ANATOMY SCANon 76-58-6673LA OB 14+ WEEKS ANATOMY SCANEXAM: US OB 14+ WEEKS ANATOMY SCAN HISTORY: [...] II, MD, PHD at 27-Oct-2024 07:25:37 AM [facility] TeleradiologyNormalNot AvailableComment on above:Order Comment: US OB ANATOMY SINGLE W US OB CERVICAL LENGTH Estimated Date of Delivery: 03/14/25 Gestational Age as of 10/05/2024: 98s0tSkauoljxwh macro (dipstick) panel (U)on 45-38-5672Onwjfhbms, UANegativeNegative - 4(70) +++ mg/dLNOMS HealthcareBlood, UANegativeNegative - 50 Villa/mcLNOMS HealthcareClarity, UAClearNOMS Healthcare Color, UAYellowNOMS HealthcareGlucose, UANegativeNegative - 2000(110) ++++ mg/dL NOMS HealthcareInterpretation and review of laboratory resultsNormalNOMS HealthcareKetones, UANegativeNegative - 160(16) ++++ mg/dLNOMS Healthcare Leukocytes, UANegativeNegative - 500+++ Pierre/mcLNOMS HealthcareNitrite, UA NegativeNegative - PositiveNOMS HealthcarepH, UA65 - 9NOMS HealthcareProtein, UA NegativeNegative - 2000(20) ++++ mg/dLNOMS HealthcareSpec Grav, UA1.021 - 1.03 NOMS HealthcareUrobilinogen, UA1.00.2 - 12 mg/dLNOMS HealthcareNOMS HealthcareB- TYPE NATRIURETIC PEPTIDEon 42-93-9132Jjtjzgqdxip peptide B (Bld) [Mass/Vol]5 pg/mLNormal<=100ProHca Houston Healthcare Medical CenterComment on above:Performed By: #### CBCA, CMP, 1987- #### [facility] ([id number]) [address] [place] [address] 53420GNW WITH AUTO DIFFERENTIALon 39-37-1710BTHRIWTKK ABSOLUTE COUNT (10*3/UL) BY AUTOMATED COUNT0.0 10*3/uLNormal0.0-0.2[facility] Comment on above:Performed By: #### 6-3 #### [facility] ([id number]) [address] [place] [address] 02799OITOGZTXR RELATIVE PERCENT BY AUTOMATED COUNT0.2 %Normal [facility] HospitalComment on above:Performed By: #### 6-3 #### [facility] ([id number]) [address] [place] [address] 18592EFUGCVBJLKW DIFFERENTIAL TYPEAUTOMATED DIFFERENTIALNormal [facility] HospitalComment on above:Performed By: #### 6-3 #### [facility] ([id number]) [address] [place] [address] 30496Mrxbsknohtz (Bld) [#/Vol]0.0 10*3/uLNormal0.0-0.4ProMedica [facility] Community HospitalComment on above:Performed By: #### 6-3 #### [facility] ([id number]) [address] [place] [address] 01610BQVAZDKVQAR RELATIVE PERCENT BY AUTOMATED COUNT0.3 %Normal [facility] HospitalComment on above:Performed By: #### 6-3 #### [facility] ([id number]) [address] [place] [address] 76018Ibxuxvwgttr distribution width (RBC) [Ratio]14.1 %Scbsdl96.5-15 [facility] HospitalComment on above:Performed By: #### 6-3 #### [facility] ([id number]) [address] [place] [address] 97008Mmgdpttfsv (Bld) [Volume fraction]38.7 %Vnvouq72-41HckLjopdgGalion HospitalComment on above:Performed By: #### 6-3 #### [facility] ([id number]) [address] [place] [address] 53449Fpryjmfjit (Bld) [Mass/Vol]13.0 g/kBBupqid35.7-15.5PMercy Health Lorain HospitalComment on above:Performed By: #### 6-3 #### [facility] ([id number]) [address] [place] [address] 64701IDIMCUJQEMF ABSOLUTE COUNT (10*3/UL) BY AUTOMATED COUNT2.4 10*3/uLNormal1.0-3.5PMercy Health Lorain HospitalComment on above:Performed By: #### 6-3 #### [facility] ([id number]) [address] [place] [address] 98530JVLZODLVOYY RELATIVE PERCENT BY AUTOMATED COUNT18.3 %Normal ProMColorado River Medical CenterComment on above:Performed By: #### 6-3 #### [facility] ([id number]) [address] [place] [address] 81696HAV (RBC) [Entitic mass]27.1 edHvnzrr62-90VgdGfnbodGalion HospitalComment on above:Performed By: #### 6-3 #### [facility] ([id number]) [address] [place] [address] 21815JLWA (RBC) [Mass/Vol]33.7 g/pHLydhbx11-02RtvZhcglbHca Houston Healthcare Medical CenterComment on above:Performed By: #### 6-3 #### [facility] ([id number]) [address] [place] [address] 07833MCA (RBC) [Entitic vol]80 nIEzhwac83-639IfkQcikwe [facility] HospitalComment on above:Performed By: #### 6-3 #### [facility] ([id number]) [address] [place] [address] 59317WDFYDQPBI ABSOLUTE COUNT (10*3/UL) BY AUTOMATED COUNT1.0 10*3/uLHigh0.0-0.9ProHca Houston Healthcare Medical CenterComment on above:Performed By: #### 6-3 #### [facility] ([id number]) [address] [place] [address] 10956RGURPRVAQ RELATIVE PERCENT BY AUTOMATED COUNT8.0 %Normal [facility] HospitalComment on above:Performed By: #### 6-3 #### [facility] ([id number]) [address] [place] [address] 82672MAUOPXUTTOO ABSOLUTE COUNT BY AUTOMATED COUNT9.5 10*3/uLHigh 1.5-6.6ProHca Houston Healthcare Medical CenterComment on above:Performed By: #### 6-3 #### [facility] ([id number]) [address] [place] [address] 91965GRCYIZLZLAQ RELATIVE PERCENT BY AUTOMATED COUNT73.2 %Normal [facility] HospitalComment on above:Performed By: #### 6-3 #### [facility] ([id number]) [address] [place] [address] 93316Wxxsesht mean volume (Bld) [Entitic vol]9.2 fLNormal7-12 [facility] HospitalComment on above:Performed By: #### 6-3 #### [facility] ([id number]) [address] [place] [address] 91599Wcqhluqko (Bld) [#/Vol]362 10*3/eORqkljs562-364YdmZtenxc [facility] HospitalComment on above:Performed By: #### 6-3 #### [facility] ([id number]) [address] [place] [address] 55504HMA COUNT4.82 X10E12/LNormal3.8-5.2PMercy Health Lorain Hospital Comment on above:Performed By: #### 2106-3 #### [facility] ([id number]) [address] [place] [address] 01432ESK (Bld) [#/Vol]13.0 10*3/uLHigh4-11[facility] Comment on above:Performed By: #### 6-3 #### [facility] ([id number]) [address] [place] [address] 10659PSBVRJQCMSWLQ METABOLIC PANELon 82-02-4581Mnsqqiv [Mass/Vol]3.4 g/dLNormal3.2-5.3PMercy Health Lorain HospitalComment on above:Performed By: #### HILLARY CHI, 1986-08 #### [facility] ([id number]) [address] [place] [address] 97114PLR [Catalytic activity/Vol]76 U/LIdhzyn76-697LhzAahhxoGalion HospitalComment on above:Performed By: #### HILLARY CHI, 1986-08 #### [facility] ([id number]) [address] [place] [address] 09991NIK [Catalytic activity/Vol]11 U/LNormal<=31PMercy Health Lorain HospitalComment on above:Performed By: #### HILLARY CHI, 1986-08 #### [facility] ([id number]) [address] [place] [address] 31105Jgkzp gap [Moles/Vol]11 mmol/LNormal5-15[facility] HospitalComment on above:Performed By: #### HILLARY CHI, 1986-08 #### [facility] ([id number]) [address] [place] [address] [id number] [Catalytic activity/Vol]17 U/LNormal<=41ProHca [facility] Healthcare Medical CenterComment on above:Performed By: #### HILLARY CHI, 1986-08 #### [facility] ([id number]) [address] [place] [address] [id number] [Mass/Vol]0.7 mg/dLNormal0.3-1.2PMercy Health Lorain HospitalComment on above:Performed By: #### IHLLARY CHI, 1986-08 #### [facility] ([id number]) [address] [place] [address] [id number] [Mass/Vol]9.0 mg/dLNormal8.5-10.5PMercy Health Lorain HospitalComment on above:Performed By: #### HILLARY CHI 1986-08 #### [facility] ([id number]) [address] [place] [address] [id number] [Moles/Vol]105 mmol/DQcshtz50-112JlvCtwvegHca Houston Healthcare Medical CenterComment on above:Performed By: #### HILLARY CHI, 1986-08 #### [facility] ([id number]) [address] [place] [address] [id number] [Moles/Vol]21 mmol/JVgy96-66MscOsdyftMercy Health Lorain Hospital Comment on above:Performed By: #### HILLARY CHI, 1986-08 #### [facility] ([id number]) [address] [place] [address] [id number] [Mass/Vol]0.71 mg/dLNormal0.40-1.00ProHca Houston Healthcare Medical CenterComment on above:Result Comment: METHOD TRACEABLE TO IDMS STANDARD Performed By: #### HILLARY CHI, 1986-08 #### [facility] ([id number]) [address] [place] [address] 54422WOTR (CKD-EPI) NON-RACE DEPENDENT>^90Normal>=60ProHca Houston Healthcare Medical CenterComment on above:Result Comment: eGFR not reported due to non- numeric value for Creatinine. Reported eGFR is based on the CKD-EPI 2020 equation that does not use a race coefficient.Performed By: #### HILLARY CHI, 1986-08 #### [facility] ([id number]) [address] [place] [address] 57178Qqjdxnq [Mass/Vol]80 mg/yJDzmqyt74-06QvlTwdcqiHca Houston Healthcare Medical Center Comment on above:Performed By: #### [facility] 1986-08 #### [facility] ([id number]) [address] [place] [address] 69849Edkfpivos [Moles/Vol]4.1 mmol/LNormal3.5-5.0ProHca Houston Healthcare Medical CenterComment on above:Performed By: #### [facility], 1986-08 #### [facility] ([id number]) [address] [place] [address] 87261Rsrkdvl [Mass/Vol]7.1 g/dLNormal6.0-8.0ProHca Houston Healthcare Medical CenterComment on above:Performed By: #### [facility], 1986-08 #### [facility] ([id number]) [address] [place] [address] 17046Jiziuf [Moles/Vol]137 mmol/LXlvkyb001-352HmsRnnape Fremont HospitalComment on above:Performed By: #### [facility], 1986-08 #### [facility] ([id number]) [address] [place] [address] 95823Ucpa nitrogen [Mass/Vol]6 mg/dLNormal5-23ProHca Houston Healthcare Medical CenterComment on above:Performed By: #### HILLARY CHI, 1986-08 #### [facility] ([id number]) [address] [place] [address] 06093BYTWXEIXJgh 03-60-8128Sefuatzuy [Mass/Vol]2.0 mg/dLNormal 1.8-2.6ProHca Houston Healthcare Medical CenterComment on above:Performed By: #### HILLARY CHI, 1986-08 #### [facility] ([id number]) [address] [place] [address], [place] [address]JKVT I, HIGH SENSITIVITY 1 HOURon 55-29-4445XMVPBUBQ I, HIGH SENSITIVITY<^2Normal<16ProHca Houston Healthcare Medical CenterComment on above:Performed By: #### HILLARY CHI, 1986-08 #### [facility] ([id number]) [address] [place] [address], [place] [address]SRXOURTO I, HIGH SENSITIVITY 0 HOURon 26-64-5158PJFTDBSN I, HIGH SENSITIVITY<^2Normal<16ProHca Houston Healthcare Medical CenterComment on above:Performed By: ###Mikael CHI CMP, 1986-08 #### [facility] ([id number]) [address] [place] [address], [place] [address]ELY,APTIMA HPV,AGE GDLNon 09-90-9927OBM GDLN ACOG TESTINGNote. NOMS HealthcareComment on above:TESTS RESULT FLAG UNITS REF RANGE LAB Clinician Provided Cytology Information Source.............Cervix No. of containers..01 ThinPrep Vial Age Algo ACOG Marielos... -06 05 FLAG LEGEND: L-Low Normal,H-High Normal,LL-Alert Low,HH-Alert High <-Panic Low,>-Panic High,A-Abnormal,AA-Critical Abnormal Performed at: 01 =G [facility] [address] [place] [address] Kylee Rivera MD, IGP, RFX APTIMA HPV ASCUNote.NOMS HealthcareComment on above:TESTS RESULT FLAG UNITS REF RANGE LAB DIAGNOSIS: 02 NEGATIVE FOR INTRAEPITHELIAL LESION OR MALIGNANCY. Specimen adequacy: 02 Satisfactory for evaluation. Endocervical and/or squamous metaplastic cells (endocervical component) are present. Performed by: Carri Lennon, Cardiovascular Technician ([facility]) . 02 Note: Note 03 The Pap [...] Low,>-Panic High,A-Abnormal,AA-Critical Abnormal Performed at: 02 [facility] [address] [place] [address] Med Campbell MD, [address] [address] Kylee Rivera MD, Performed at: =G - [facility] [address] [id number] Entertainment Lawyer: Kylee Rivera MD, Phone: [phone] Performed at: [facility] - [facility] [address] [place], [place] [id number] Entertainment Lawyer: Med Campbell MD, Phone: [phone] SPATULA-ALONE CERVIX CLINISYNCNOMS HealthcareRECURRENT VAGINITIS (HTRX)on 71-59-7894TBRKPVLAP VAGINAE 0NOMS HealthcareATOPOBIUM VAGINAENot detectedNOMS HealthcareBVAB 2,3 (BACTERIAL VAGINOSIS ASSOCIATED BACTERIA 2, 3); MOBILUNCUS BOH4RRUZ HealthcareBVAB 2,3 (BACTERIAL VAGINOSIS ASSOCIATED BACTERIA 2, 3); MOBILUNCUS SPPNot detectedNOMS HealthcareCANDIDA ALBICANS, PARAPSILOSIS, SUIUCTPGCJ3KYAX HealthcareCANDIDA ALBICANS, PARAPSILOSIS, TROPICALISNot detectedNOMS HealthcareCANDIDA GLABRATA0 NOMS HealthcareCANDIDA GLABRATANot detectedNOMS HealthcareCANDIDA QKEVDW3CDVA HealthcareCANDIDA KRUSEINot detectedNOMS HealthcareCHLAMYDIA YMMCOZDDZJV3GKMJ HealthcareCHLAMYDIA TRACHOMATISNot detectedNOMS HealthcareERMB, C; MEFA25.809 AbnormalNOMS HealthcareERMB, C; MEFADetectedAbnormalNOMS HealthcareGARDNERELLA HWRTVFOEX74.457AbnormalNOMS HealthcareGARDNERELLA VAGINALISDetectedAbnormalNOMS HealthcareInterpretation and review of laboratory resultsAbnormalNOMS Healthcare MEGASPHAERA (TYPES 1, 2)0NOMS HealthcareMEGASPHAERA (TYPES 1, 2)Not detectedNOMS HealthcareMYCOPLASMA QAJMOJQDHC4BQYL HealthcareMYCOPLASMA GENITALIUMNot detectedNOMS HealthcareNEISSERIA BCVKHHCHXSF3RHZQ HealthcareNEISSERIA GONORRHOEAENot detectedNOMS HealthcareTET B, TET M26.802AbnormalNOMS Healthcare TET B, TET MDetectedAbnormalNOMS HealthcareTRICHOMONAS GLBLFFTQZ2TGIL Healthcare TRICHOMONAS VAGINALISNot detectedNOMS HealthcareNOMS HealthcareUrinalysis macro (dipstick) panel (U)on 05-89-4542Oeqljmtqa, UAPositiveNegative - 4(70) +++ mg/dL NOMS HealthcareComment on above:smallBlood, UAPositiveNegative - 50 Villa/mcLNOMS HealthcareComment on above:traceClarity, UAClearNOMS HealthcareColor, UAYellow NOMS HealthcareGlucose, UANegativeNegative - 2000(110) ++++ mg/dLNOWY Healthcare Interpretation and review of laboratory resultsAbnormalNOMS HealthcareKetones, UAPositiveNegative - 160(16) ++++ mg/dLNOMS HealthcareComment on above:15 Leukocytes, UANegativeNegative - 500+++ Pierre/mcLNOMS HealthcareNitrite, UA NegativeNegative - PositiveNOMS HealthcarepH, UA6.55 - 9NOMS HealthcareProtein, UAPositiveNegative - 2000(20) ++++ mg/dLNOMS HealthcareComment on above:100Spec Grav, UA1.0251 - 1.03NOMS HealthcareUrobilinogen, UA1.00.2 - 12 mg/dLNOMS HealthcareNOMS HealthcareCoding Summaryon 63-33-9171Bkowfa SummaryHTMLBase 64 PemitxgiSEw1gRn+PGhlYWQ+MN3IKJEvX75owNJqmP9fD9KAKDaQNgzoQRCXTUqBFzVlbvLeXH7lqOAe ZXJu [file] YXB (more content not included)...[facility] HospitalPONJ Rapid Strepon 09-20-2024S. pyogenes Ag IA Ql (Unsp spec)NegativeInvalid Interpretation Code [facility] on above:Performed By: #### [id number], [id number], [id number] #### [facility] (DEFAULT) [address] [place], [place] [address]LYE RUBELLA IGG ABon 00-85-6097NVRCYLU ANTIBODIES, IGG1.46 Immune >0.99 indexNOMS HealthcareComment on above:Non-immune <0.90 Equivocal 0.90 - 0.99 Immune >0.99 Performed at: - [facility], [place], [place] [id number] Entertainment Lawyer: Yvna Bolton PhD, Phone: [phone] HCV ANTIBODY RFX TO QUANT PCRon 65-76-4653RRG ABNon-ReactiveNon ReactiveNOMS HealthcareINTERPRETATION:Comment.NOMS HealthcareComment on above:Not infected with HCV unless early or acute infection is suspected (which may be delayed in an immunocompromised individual), or other evidence exists to indicate HCV infection. No Panel Informationon 56-11-0331OCCPTFNNJPDBW HealthcareUrinalysis macro (dipstick) panel (U)on 33-97-8267Slqboalgp, UAPositiveNegative - 4(70) +++ mg/dL NOMS HealthcareComment on above:smallBlood, UANegativeNegative - 50 Villa/mcLNOMS HealthcareClarity, UAClearNOMS HealthcareColor, UAYellowNOMS HealthcareGlucose, UANegativeNegative - 2000(110) ++++ mg/dLNOMS HealthcareInterpretation and review of laboratory resultsAbnormalNOMS HealthcareKetones, UAPositiveNegative - 160(16) ++++ mg/dLNOMS HealthcareComment on above:15mg/dLLeukocytes, UATrace Negative - 500+++ Pierre/mcLNOMS HealthcareNitrite, UANegativeNegative - Positive NOMS HealthcarepH, UA7.55 - 9NOMS HealthcareProtein, UAPositiveNegative - 2000(20) ++++ mg/dLNOMS HealthcareComment on above:30mg/dLSpec Grav, UA1.021 - 1.03NOMS HealthcareUrobilinogen, UA2.00.2 - 12 mg/dLNOMS HealthcareNOMS HealthcareCoding Summaryon 99-02-9870Wfsolc SummaryUTAH VALLEY HOSPITALBase 64 EtqrsogpAWe3mVy+PGhlYWQ+PB1XLWUcV46taFBbeG1rI5VAHYcGLgliKSJLLZmEGxZqjpQcRQ4ptSIs ZXJu [file] ZXI (more content not included)...[facility] HospitalBOX TESTon 08-18-2024 BOX TEST [facility]UNPROM[facility] ZxuzhzcbeiVEX3HOCPMVDXF ZlnhcpvbycKZG02/13/25NOMosaic Life Care at St. JosephUNAULTMAN [facility] BOX CLINISYNCMercy Hospital South, formerly St. [facility]'s [facility] CenterC Urineon 08-13-2024 UrineUrine Culture ordered as a result of parameters set on specific urine dip and urine microsopic results. Mixed skin, or urogenital jonny. Clinically insignificantToledo Hospital Comment on above:Performed By: #### [id number], [id number], [id number] #### [facility] (DEFAULT) [address] [place] [address].Auto Diff 1on 42-60-3337Acmd Archuleta %7 %Normal1-12[facility] HospitalComment on above:Performed By: #### 1921882, 8694189, 56742914, [id number] ####[facility] (DEFAULT)[address] [place] [address] Baso Abs#0.1 a91Vptjrj6.0-0.2[facility] HospitalComment on above:Performed By: #### 0580568, 3774497, 79052233, [id number] ####[facility] (DEFAULT)[address] [place], [place] [address]Basophils/100 WBC (Bld)0.7 %Normal0.2-2.0 [facility] HospitalComment on above:Performed By: #### 2391290, 9526222, 27335186, [id number] ####[facility] (DEFAULT)[address] [place], [place] [address]Eos Abs#0.0 f89Auxrjm6.0-0.4[facility] HospitalComment on above:Performed By: #### 3063364, 7757947, 72604273, [id number] ####[facility] (DEFAULT)[address] [place], [place] [address]Gbhuvhrcazm/100 WBC (Bld)0.4 %Low0.9-4.0 [facility] HospitalComment on above:Performed By: #### 5786228, 0217032, 79584941, [id number] ####[facility] (DEFAULT)[address] [place] [address] 28947Gpjhb Abs#2.5 y55Ixdudi4.3-2.9[facility] HospitalComment on above:Performed By: #### 1045534, 2569766, 51743383, [id number] ####[facility] (DEFAULT)[address] [place] [address] 98263Eneowdaxwij/100 WBC (Bld)23 % Njewbn77-11Hgkshdws HospitalComment on above:Performed By: #### 0178557, 9548198, 10883725, 6934378546 ####[facility] (DEFAULT)[address] [place] [address] 28582Cojg Abs#0.7 e09Ugphjh4.0-0.8[facility] Hospital Comment on above:Performed By: #### 5933407, 3872551, 67339222, [id number] ####[facility] (DEFAULT)[address] [place] [address] 24747Hlep Abs# 7.3 b31Hmmazo0.5-9.2[facility] HospitalComment on above:Performed By: #### 9033950, 3425409, 98404403, [id number] ####[facility] (DEFAULT)[address] [place] [address] 01235Fhbzwivisuv/100 WBC (Bld)69 %Osmylm04-95Czjqwnlp HospitalComment on above:Performed By: #### 1611706, 7603747, 17016939, [id number] ####[facility] (DEFAULT)[address] [place] [address] 29073 CBC w/ Auto Diffon 61-59-5564Nnvrnbdifcj distribution width (RBC) [Ratio]14.0 % Weende06.5-15.0[facility] HospitalComment on above:Performed By: #### 8024193, 0508274, 88991832, [id number] ####[facility] (DEFAULT)[address] [place] [address] 81870Rzjawyapgk (Bld) [Volume fraction]40.0 %Normal 33.7-40.4[facility] HospitalComment on above:Performed By: #### 8523739, 9289865, 29687470, [id number] ####[facility] (DEFAULT)[address] [place] [address] 26931Ocixgkpphb (Bld) [Mass/Vol]13.4 g/cWUiifbi79.3-15.9[facility] HospitalComment on above:Performed By: #### 3404782, 2979483, 43760360, 2160263031 ####[facility] (DEFAULT)[address] [place] [address] 19194 Man Diff?AutoInvalid Interpretation CodeChildren'S Hospital For Rehabilitation HospitalComment on above: Performed By: #### 7809932, 2713179, 84874239, [id number] ####[facility] (DEFAULT)[address] [place] [address] 78260OZJ (RBC) [Entitic mass]27 pg Rqjmez52-67Invsdkel HospitalComment on above:Performed By: #### 7999621, 2120564, 39318115, [id number] ####[facility] (DEFAULT)[address] [place] [address] 15971AQVP (RBC) [Mass/Vol]34 g/nBLxpigg25-43Unreiqoj HospitalComment on above:Performed By: #### 7737223, 5215100, 62141095, [id number] ####[facility] (DEFAULT)[address] [place] [address] MCV (RBC) [Entitic vol]82 rMQglzzw63-623Qpmgxixh HospitalComment on above: Performed By: #### 0953055, 0608787, 38628272, 8680522025 ####[facility] (DEFAULT)[address] [place] [address] 41129Btoikyju845 b36Xkcyvb653-210 [facility] HospitalComment on above:Performed By: #### 9359957, 6169517, 45979482, [id number] ####[facility] (DEFAULT)[address] [place] [address]27 Platelet mean volume (Bld) [Entitic vol]8.6 fLNormal6.3-10.2[facility] Hospital Comment on above:Performed By: #### 1423700, 1114996, 43146853, [id number] ####[facility] (DEFAULT)[address] [place] [address] 05551ZBV2.88 x10 Normal3.70-5.30[facility] HospitalComment on above:Performed By: #### 7107281, 9255774, 11944317, [id number] ####[facility] (DEFAULT)[address] [place] [address] 78434SLS92.7 h66Cwlk4.5-10.5[facility] HospitalComment on above:Performed By: #### 4481391, 9006147, 58119286, [id number] ####[facility] (DEFAULT)[address] [place] [address] 77362KHS Standardon 38-25-7793vDWP Non AA>60Invalid Interpretation [facility] Medical CenterComment on above:Performed By: #### 5579799, 8115038, 01701228, [id number] ####[facility] (DEFAULT)[address] [place] [address] 22579oVBQ AA>60Invalid Interpretation [facility] Medical CenterComment on above:Performed By: #### 3794528, 5803896, 93993630, [id number] ####[facility] (DEFAULT)[address] [place] [address] 89163Qvjhmwz [Mass/Vol]3.9 g/dLNormal3.5-5.0[facility] HospitalComment on above:Performed By: #### 3205653, 7733223, 14289449, 9942149634 ####[facility] (DEFAULT)[address] [place] [address] Albumin/Globulin [Mass ratio]1.0 {ratio}Low1.4-2.6[facility] HospitalComment on above:Performed By: #### 1808994, 7438535, 46803673, 2537091311 ####[facility] (DEFAULT)[address] [place], [place] [address]Ddp Phos77 IU/LNormal 32-91[facility] HospitalComment on above:Performed By: #### 3923258, 1688615, 03315090, [id number] ####[facility] (DEFAULT)[address] [place] [address]YRS [Catalytic activity/Vol]25.0 U/TRtcprd20.0-54.0[facility] HospitalComment on above:Performed By: #### 0490277, 3036667, 16758306, 0858177818 ####[facility] (DEFAULT)[address] [place] [address]53 Anion gap [Moles/Vol]13.8 mmol/LNormal5.0-19.0[facility] HospitalComment on above: Performed By: #### 4728788, 7225865, 25454583, 3538978842 ####[facility] (DEFAULT)[address] [place] [address]27[address]LMC [Catalytic activity/Vol]21 U/HYyyvke70-33Bvplprgo HospitalComment on above:Performed By: #### 8041449, 9599318, 61747465, 1534260313 ####[facility] (DEFAULT)[address] [place] [address] 31357Iswf Total0.7 mg/dLNormal0.3-1.2[facility] Hospital Comment on above:Performed By: #### 2004788, 8178319, 97705063, 2921485802 ####[facility] (DEFAULT)[address] [place], [place] [address]Qqqbsje [Mass/Vol]9.2 mg/dLNormal8.9-10.3[facility] HospitalComment on above:Performed By: #### 5468885, 9113064, 45434283, 3986353026 ####[facility] (DEFAULT)[address] [place] [address]27[address]Ndemhoqh [Moles/Vol]105 mmol/TXnullj869-373 [facility] HospitalComment on above:Performed By: #### 6112767, 3879399, 62439428, 5015294874 ####[facility] (DEFAULT)[address] [place] [address] 96808YH7 [Moles/Vol]21 mmol/XVmyvmj01-10Rarfywet HospitalComment on above: Performed By: #### 5973591, 6605869, 78009358, 8415506137 ####[facility] (DEFAULT)[address] [place] [address] 99721Ihrygueaqc [Mass/Vol]0.55 mg/dL Low0.60-1.30[facility] HospitalComment on above:Performed By: #### 5830715, 9605744, 53314661, 9951079883 ####[facility] (DEFAULT)[address] [place] [address] 90379Fgkzdarl (S) [Mass/Vol]3.7 g/dLNormal1.5-4.3[facility] HospitalComment on above:Performed By: #### 0445121, 7713438, 09996714, 0057951908 ####[facility] (DEFAULT)[address] [place] [address]687 Glucose [Mass/Vol]92.0 mg/uXLbvfcm63.0-118.0[facility] HospitalComment on above: Performed By: #### 3412652, 8312330, 99388162, 7152324756 ####[facility] (DEFAULT)[address] [place], [place] [address]Kqresyprgv165 mOsm/LInvalid Interpretation CodeChildren'S Hospital For Rehabilitation HospitalComment on above:Performed By: #### 7717016, 6000836, 33648755, [id number] ####[facility] (DEFAULT)[address] [place], [place] [address]Mdocmnrzf [Moles/Vol]3.8 mmol/LNormal3.6-5.1[facility] HospitalComment on above:Performed By: #### 6517947, 0168359, 70696006, 6935539482 ####[facility] (DEFAULT)[address] [place] [address] 23666 Protein [Mass/Vol]7.6 g/dLNormal6.5-8.1[facility] HospitalComment on above: Performed By: #### 3092088, 6838449, 87278182, 8463958172 ####[facility] (DEFAULT)[address] [place] [address] 04235Lmjbrw [Moles/Vol]136.0 mmol/L Byczxe930.0-144.0[facility] HospitalComment on above:Performed By: #### 4924940, 5102597, 32922931, 5121925315 ####[facility] (DEFAULT)[address] [place] [address] 13812Mvjg nitrogen [Mass/Vol]8 mg/dLNormal8-26[facility] HospitalComment on above:Performed By: #### 3348886, 4848707, 53380939, 3299843597 ####[facility] (DEFAULT)[address] [place] [address] 22802 Urea nitrogen/Creatinine [Mass ratio]14.5 mg/mgNormal4.6-16.2[facility] Hospital Comment on above:Performed By: #### 8597329, 0867726, 24570803, 1129303784 ####[facility] (DEFAULT)[address] [place] [address] 72282GJ Tzchn3hq 79-12-6416TQ Bacteria1+NormalChildren'S Hospital For Rehabilitation HospitalComment on above:Order Comment: Urinalysis Microscopic order added on by Discern Expert Rules system.Performed By: #### [id number], 91340576, 8433686 #### [facility] (DEFAULT) [address] [place] [address] 12085GG RBC0-2NormalChildren'S Hospital For Rehabilitation HospitalComment on above:Order Comment: Urinalysis Microscopic order added on by Discern Expert Rules system. Performed By: #### [id number], 26357511, 0922318 #### [facility] (DEFAULT) [address] [place] [address] 53143OA Squam EpiNone SeenSCCI Hospital Lima HospitalComment on above:Order Comment: Urinalysis Microscopic order added on by ReachLocal Expert Rules system.Performed By: #### [id number], 91904927, 3132750 #### [facility] (DEFAULT) [address] [place] [address] 20769FR Urothelial CellsModerateAbnoAspirus Ironwood Hospital HospitalComment on above:Order Comment: Urinalysis Microscopic order added on by ReachLocal Expert Rules system.Performed By: #### [id number], 52134007, 9124790 #### [facility] (DEFAULT) [address] [place] [address] 17022NR WBC0-2NormalChildren'S Hospital For Rehabilitation HospitalComment on above:Order Comment: Urinalysis Microscopic order added on by ReachLocal Expert Rules system. Performed By: #### [id number], 30865291, 3913388 #### [facility] (DEFAULT) [address] [place] [address] 34430ER w Culture if Ind Standardon 97-85-8489Utljlhobrn UA NormalChildren'S Hospital For Rehabilitation HospitalComment on above:Performed By: #### [id number], 54438872, 8101502 #### [facility] (DEFAULT) [address] [place] [address] 79637Tpqzf (U)Dark YellowNormUC Medical Center HospitalComment on above:Performed By: #### [id number], 62723141, 2091654 #### [facility] (DEFAULT) [address] [place] [address] 73176Toplutw?IndicatedInvalid Interpretation CodeChildren'S Hospital For Rehabilitation HospitalComment on above:Result Comment: Result created by rule GL_MAGR_ADD_UA_CULT Result created by rule GL_MAGR_ADD_UA_CULT Result created by rule GL_MAGR_ADD_UA_CULTPerformed By: #### [id number], 93724689, 2656422 #### [facility] (DEFAULT) [address] [place] [address] 16791Qjlvjuw (U) [Mass/Vol]NegativeNormalChildren'S Hospital For Rehabilitation Hospital Comment on above:Performed By: #### [id number], 31859070, 0284935 #### [facility] (DEFAULT) [address] [place] [address] 99157Bjyxeuh Ql (U)>=80NormalChildren'S Hospital For Rehabilitation HospitalComment on above: Performed By: #### [id number], 22572746, 9708043 #### [facility] (DEFAULT) [address] [place] [address] 17501Pzrmk?IndicatedInvalid Interpretation CodeChildren'S Hospital For Rehabilitation HospitalComment on above:Result Comment: Result created by rule GL_MAGR_ADD_UA_MICROPerformed By: #### [id number], 10695332, [id number] #### [facility] (DEFAULT) [address] [place] [address] 17146TP BilirubinSMALLAbnormalChildren'S Hospital For Rehabilitation HospitalComment on above:Performed By: #### [id number], 67456710, 7407723 #### [facility] (DEFAULT) [address] [place] [address] 45206DH BloodNegativeNormalNEGATIVEChildren'S Hospital For Rehabilitation HospitalComment on above:Performed By: #### [id number], 55349722, 3501174 #### [facility] (DEFAULT) [address] [place] [address] 29338OU ClarityCLEARNormalCLEARChildren'S Hospital For Rehabilitation HospitalComment on above:Performed By: #### [id number], 61671322, 7946385 #### [facility] (DEFAULT) [address] [place] [address] 90794XI Leuk EstTRACEAbnormalNEGATIVEChildren'S Hospital For Rehabilitation HospitalComment on above:Performed By: #### [id number], 67062569, 8314827 #### [facility] (DEFAULT) [address] [place] [address] [id number] NitriteNegativeNormalNEGATIVEChildren'S Hospital For Rehabilitation HospitalComment on above:Performed By: #### [id number], [id number] #### [facility] (DEFAULT) [address] [place] [address] [id number] pH7.9Xvrzmp9-2Kopkhirp HospitalComment on above: Performed By: #### [id number], [id number], [id number] #### [facility] (DEFAULT) [address] [place] [address] [id number] Qtiofkf83EuzgujvbDRRUWRUDGsqvwrwd HospitalComment on above:Performed By: #### [id number], [id number], [id number] #### [facility] (DEFAULT) [address] [place] [address] [id number] Spec Grav1.518Kbnxce1.001-1.035Maupper valley medical center HospitalComment on above:Performed By: #### [id number], [id number], [id number] #### [facility] (DEFAULT) [address] [place] [address] [id number] Urobilinogen4.0 mg/dLAbnormal0.2-1.0[facility] Hospital Comment on above:Performed By: #### [id number], [id number], [id number] #### [facility] (DEFAULT) [address] [place] [address] [id number] SourceClean CatchNormalChildren'S Hospital For Rehabilitation HospitalComment on above:Performed By: #### [id number], [id number], [id number] #### [facility] (DEFAULT) [address] [place] [address] 57131yXO Quantitativeon 70-69-3237kJF Lbcffnfyupbx507349.0 mIU/mLHigh0.0-0.6Magrcommunity memorial hospital HospitalComment on above:Result Comment: Result Confirmed by Dilution Post-Menopausal Reference Range is: 0.1-11.6 mIU/mLPerformed By: #### [id number], [id number], [id number], [id number] ####[facility] (DEFAULT)[address] [place], [place] [address]THQ ( test) Ql (U)on 08-06-2024 Interpretation and review of laboratory resultsAbnormalNOMS HealthcarePreg Test, UrPositiveNegativeNOMS HealthcareNOMS HealthcareUS OB TRANSVAGINALon 08-06-2024 US OB TRANSVAGINALTITLE OF EXAM: OB Ultrasound: REASON FOR EXAM: [...] report is generated using voice recognition reporting ([employer]). On occasion L[employer] erroneously drops words from the report or replaces the spoken word with similar sounding words. Please call with any questions/concerns regarding this report.* Dictated and transcribed 08/06/24/dpd This report has been electronically signed and approved by the interpreting radiologist.NormalNot AvailableComment on above:Order Comment: US OB TRANSVAGINAL No LMP recorded.Urinalysis macro (dipstick) panel (U)on 31-74-4480Thqpdjuzn, UA PositiveNegative - 4(70) +++ mg/dLNOMS HealthcareComment on above:smallBlood, UA PositiveNegative - 50 Villa/mcLNOMS HealthcareComment on above:Trace-intact Clarity, UAClearNOMS HealthcareColor, UAYellowNOMS HealthcareGlucose, UANegative Negative - 2000(110) ++++ mg/dLNOMS HealthcareInterpretation and review of laboratory resultsAbnormalNOMS HealthcareKetones, UAPositiveNegative - 160(16) ++++ mg/dLNOMS HealthcareComment on above:80mg/dLLeukocytes, UATraceNegative - 500+++ Pierre/mcLNOMS HealthcareNitrite, UANegativeNegative - PositiveNOMS HealthcarepH, UA6.55 - 9NOMS HealthcareProtein, UAPositiveNegative - 2000(20) ++++ mg/dLNOMS HealthcareComment on above:100mg/dLSpec Grav, UA1.0251 - 1.03NOMS HealthcareUrobilinogen, UA1.00.2 - 12 mg/dLNOMS HealthcareNOMS HealthcareCBC WITH AUTO DIFFERENTIALon 06-94-5251FUDDMVDGD ABSOLUTE COUNT (10*3/UL) BY AUTOMATED COUNT0.1 10*3/uLNormalProMedica Arroyo Grande Community HospitalComment on above: Performed By: #### 2106-3 #### [facility] ([id number]) [address] [place] [address] 05486RQNOAYKHX RELATIVE PERCENT BY AUTOMATED COUNT0.7 %Normal [facility] Community HospitalComment on above:Performed By: #### 2106-3 #### [facility] ([id number]) [address] [place] [address] 25983FQYSPMWXMJY DIFFERENTIAL TYPEAUTOMATED DIFFERENTIALNormal [facility] HospitalComment on above:Performed By: #### 6-3 #### [facility] ([id number]) [address] [place] [address] 50997Wfbuczjmhbf (Bld) [#/Vol]0.0 10*3/uLNormalGalion HospitalComment on above:Performed By: #### 6-3 #### [facility] ([id number]) [address] [place] [address] 48083AEALPFHOCLC RELATIVE PERCENT BY AUTOMATED COUNT0.2 %Normal [facility] HospitalComment on above:Performed By: #### 6-3 #### [facility] ([id number]) [address] [place] [address] 54058Xjjsmuhitso distribution width (RBC) [Ratio]14.2 %Twgikh71.5-15 [facility] HospitalComment on above:Performed By: #### 6-3 #### [facility] ([id number]) [address] [place] [address] 79224Eedkxhbbil (Bld) [Volume fraction]40.0 %Myfdyl68-07OghFgfjrhGalion HospitalComment on above:Performed By: #### 6-3 #### [facility] ([id number]) [address] [place] [address] 97459Quvhsmedpl (Bld) [Mass/Vol]13.4 g/jHFrihpn47.7-15.5ProMedica [facility] Community HospitalComment on above:Performed By: #### 6-3 #### [facility] ([id number]) [address] [place] [address] 89166YHUTOQEWOPG ABSOLUTE COUNT (10*3/UL) BY AUTOMATED COUNT2.8 10*3/uLNoParkview HealthComment on above:Performed By: #### 6- 3 #### [facility] ([id number]) [address] [place] [address] 64148TDDHCPFWYOE RELATIVE PERCENT BY AUTOMATED COUNT23.8 %Normal [facility] HospitalComment on above:Performed By: #### 2106-3 #### [facility] ([id number]) [address] [place] [address] 73738VHK (RBC) [Entitic mass]27.5 agDlmaki06-42QbwVzgembGalion HospitalComment on above:Performed By: #### 2106-3 #### [facility] ([id number]) [address] [place] [address] 38277TRCS (RBC) [Mass/Vol]33.5 g/fKPsuszz18-94ZudQjbzgkGalion HospitalComment on above:Performed By: #### 2106-3 #### [facility] ([id number]) [address] [place] [address] 81149ZAM (RBC) [Entitic vol]82 fBTqwuut34-418VufQffwjmGalion HospitalComment on above:Performed By: #### 2106-3 #### [facility] ([id number]) [address] [place] [address] 64435NZRIGVHEE ABSOLUTE COUNT (10*3/UL) BY AUTOMATED COUNT0.9 10*3/uLNormalGalion HospitalComment on above:Performed By: #### 2106- 3 #### [facility] ([id number]) [address] [place] [address] 62955OLHXVNYNN RELATIVE PERCENT BY AUTOMATED COUNT7.7 %Normal [facility] HospitalComment on above:Performed By: #### 2106-3 #### [facility] ([id number]) [address] [place] [address] 35037ESQGACORUEX ABSOLUTE COUNT BY AUTOMATED COUNT8.0 10*3/uLNormal [facility] HospitalComment on above:Performed By: #### 6-3 #### [facility] ([id number]) [address] [place] [address] 73543GNVIUIDZKOK RELATIVE PERCENT BY AUTOMATED COUNT67.6 %Normal [facility] HospitalComment on above:Performed By: #### 6-3 #### [facility] ([id number]) [address] [place] [address] 79473Vtpmkmsp mean volume (Bld) [Entitic vol]9.1 fLNormal7-12 [facility] HospitalComment on above:Performed By: #### 6-3 #### [facility] ([id number]) [address] [place] [address] 60224Hxvqhcmyw (Bld) [#/Vol]400 10*3/hEFakzgy623-678VqyEtqmdcGalion HospitalComment on above:Performed By: #### 6-3 #### [facility] ([id number]) [address] [place] [address], [place] [address]GIH COUNT4.88 X10E12/LNormal3.8-5.2PMercy Health Lorain Hospital Comment on above:Performed By: #### 6-3 #### [facility] ([id number]) [address] [place] [address] 86716XBV (Bld) [#/Vol]11.8 10*3/uLHigh4-11[facility] Comment on above:Performed By: #### 6-3 #### [facility] ([id number]) [address] [place] [address] 97767ISFTAHGVVJTBL METABOLIC PANELon 62-50-2783Huhdgcb [Mass/Vol]4.2 g/dLNormal3.2-5.3PMercy Health Lorain HospitalComment on above:Performed By: #### 6-3 #### [facility] ([id number]) [address] [place] [address], [place] [address]MJI [Catalytic activity/Vol]90 U/ABlpojz29-160GxbPwrmqqHca Houston Healthcare Medical CenterComment on above:Performed By: #### 6-3 #### [facility] ([id number]) [address] [place] [address], [place] [address]RCZ [Catalytic activity/Vol]16 U/LNormal<=31PS[facility] HospitalComment on above:Result Comment: R-Specimen hemolyzed, results increased Performed By: #### 6-3 #### [facility] ([id number]) [address] [place] [address], [place] [address]Vpbue gap [Moles/Vol]9 mmol/LNormal5-15ProHca Houston Healthcare Medical CenterComment on above:Performed By: #### 6-3 #### [facility] ([id number]) [address] [place] [address] 18532WNU [Catalytic activity/Vol]27 U/LNormal<=41ProHca Houston Healthcare Medical CenterComment on above:Result Comment: R-Specimen hemolyzed, results increased Performed By: #### 6-3 #### [facility] ([id number]) [address] [place] [address] 88426Rudmerpvv [Mass/Vol]1.2 mg/dLNormal0.3-1.2PMercy Health Lorain HospitalComment on above:Result Comment: R-Results questionable due to hemolysis Performed By: #### 6-3 #### [facility] ([id number]) [address] [place] [address] 84709Upahagb [Mass/Vol]9.2 mg/dLNormal8.5-10.5PS[facility] HospitalComment on above:Performed By: #### 6-3 #### [facility] ([id number]) [address] [place] [address], [place] [address]Dgitjwzq [Moles/Vol]103 mmol/XFmzcfd63-027GriOgoppcGalion HospitalComment on above:Performed By: #### 2106-3 #### [facility] ([id number]) [address] [place] [address] 81461ZY3 [Moles/Vol]22 mmol/ZOxwlgq13-74SarWkowehMercy Health Lorain Hospital Comment on above:Performed By: #### 6-3 #### [facility] ([id number]) [address] [place] [address] 27281Vluslidxpz [Mass/Vol]0.70 mg/dLNormal0.40-1.00[facility] HospitalComment on above:Result Comment: METHOD TRACEABLE TO IDMS STANDARD Performed By: #### 2106-3 #### [facility] ([id number]) [address] [place] [address] 07846ZDVC (CKD-EPI) NON-RACE DEPENDENT>^90Normal>=60[facility] HospitalComment on above:Result Comment: Reported eGFR is based on the CKD-EPI 2020 equation that does not use a race coefficient.Performed By: #### 2106-3 #### [facility] ([id number]) [address] [place] [address] 25210Vtkketi [Mass/Vol]86 mg/aXTzqgql31-37AxtFfeupfGalion Hospital Comment on above:Performed By: #### 2106-3 #### [facility] ([id number]) [address] [place] [address] 84326Cbkzcostt [Moles/Vol]4.2 mmol/LNormal3.5-5.0[facility] HospitalComment on above:Result Comment: R-Specimen hemolyzed, results increased Performed By: #### 2106-3 #### [facility] ([id number]) [address] [place] [address] 96777Umtozmb [Mass/Vol]8.1 g/dLHigh6.0-8.0[facility] Comment on above:Performed By: #### 6-3 #### [facility] ([id number]) [address] [place] [address], [place] [address]Bzcekc [Moles/Vol]134 mmol/LPidzjy998-904SrjPxicmh [facility] HospitalComment on above:Performed By: #### 6-3 #### [facility] ([id number]) [address] [place] [address], [place] [address]Skxy nitrogen [Mass/Vol]9 mg/dLNormal5-23[facility] HospitalComment on above:Performed By: #### 6-3 #### [facility] ([id number]) [address] [place] [address] 62981DB EXTRA URINEon 77-94-4051GI EXTRA URINEERU ER EXTRA URINE CancelledNoalGalion HospitalComment on above:Order Comment: A extra urine specimen no testing is neededMAGNESIUMon 99-75-2060Vxbkqmcdp [Mass/Vol] 2.1 mg/dLNormal1.8-2.6[facility] HospitalComment on above:Result Comment: R-Specimen hemolyzed, results increasedPerformed By: #### 6-3 #### [facility] ([id number]) [address] [place] [address], [place] [address]KZUM NURSING URINE MACROSCOPIC UAon 09-92-9690ROGORAULC NEHA SmallAbnormalNegLutheran HospitalComment on above:Performed By: #### 6-3 #### [facility] ([id number]) [address] [place] [address] 45322XNFOQ/HGB NURSmallAbnormalNegLutheran Hospital Comment on above:Performed By: #### 6-3 #### [facility] ([id number]) [address] [place] [address] [place] [address]OLTQLNF NURNegativeNormalNegativeGalion Hospital Comment on above:Performed By: #### 2106-3 #### [facility] ([id number]) [address] [place] [address], [place] [address]JHDTUBC NUR15 mg/dLAbnormalNegativeGalion Hospital Comment on above:Performed By: #### 6-3 #### [facility] ([id number]) [address] [place] [address], [place] [address]CPZCDZPCL ESTERASE NURNegativeNormalNegativeGalion HospitalComment on above:Performed By: #### 6-3 #### [facility] ([id number]) [address] [place] [address] 68514MJOMMJW NURNegativeNormalNegativeGalion Hospital Comment on above:Performed By: #### 6-3 #### [facility] ([id number]) [address] [place] [address], [place] [address]IL NUR7.1Mrhfgr1.0, 6.0, 6.5, 7.0, 7.5, 8.0, 8.5, 5.5Pro[facility] Community HospitalComment on above:Performed By: #### 6-3 #### [facility] ([id number]) [address] [place] [address], [place] [address]MGUOVLR JUI429 mg/dLAbnormalNegativeGalion Hospital Comment on above:Performed By: #### 6-3 #### [facility] ([id number]) [address] [place] [address], [place] [address]HOWGIZGM GRAVITY NUR1.025Abnormal(none)[facility] HospitalComment on above:Performed By: #### 6-3 #### [facility] ([id number]) [address] [place], [place] [address]LVLKELXSZRYF NUR1.0 E.U./dLNormal0.2 E.U./dL, 1.0 E.U./dL [facility] HospitalComment on above:Performed By: #### 2106-3 #### [facility] ([id number]) [address] [place] [address] 56222RWRU , URINE (NUCG)on 50-64-6812Kbse HCG ( test) Ql (U)PositiveAbnormalNegativeGalion HospitalComment on above: Performed By: #### 2106-3 #### [facility] ([id number]) [address] [place] [address] 73716CI PREG LESS THAN 14 WKS SINGLEon 85-99-9833FZ PREG LESS THAN 14 WKS SINGLEUS PREG LESS THAN 14 WKS SINGLE US PREG LESS THAN 14 WKS SINGLE CLINICAL INDICATION: vomiting FINDINGS: limited transabdominal ultrasound of the pelvis. UTERUS AND GESTATIONAL SAC: Intrauterine gestation: Single. Gestational sac: Intrauterine. Yolk sac: 0.3 cm Benicia-rump length (CRL): 1.6 cm heart motion: 174 [...] Finalized by Brett Gutierrez on 08/03/2024 12:52 PMNormalGalion Hospital COMPREHENSIVE METABOLIC PANELon 04-41-0136Rwtgjrk [Mass/Vol]4.2 g/dLNormal 3.2-5.3[facility] HospitalComment on above:Performed By: #### NUM #### [facility] ([id number]) [address] [place] [address], [place] [address]QNO [Catalytic activity/Vol]95 U/OEyxvha89-474XjcMgfnfjHca Houston Healthcare Medical CenterComment on above:Performed By: #### NUM #### [facility] ([id number]) [address] [place] [address], [place] [address]LSM [Catalytic activity/Vol]19 U/LNormal0-31PMercy Health Lorain HospitalComment on above:Performed By: #### NUM #### [facility] ([id number]) [address] [place] [address], [place] [address]Bbqgr gap [Moles/Vol]11 mmol/LNormal5-15ProHca [facility] Healthcare Medical CenterComment on above:Performed By: #### NUM #### [facility] ([id number]) [address] [place] [address], [place] [address]AFW [Catalytic activity/Vol]19 U/LNormal0-41ProHca [facility] Healthcare Medical CenterComment on above:Performed By: #### NUM #### [facility] ([id number]) [address] [place] [address], [place] [address]Abtifgema [Mass/Vol]0.5 mg/dLNormal0.3-1.2PMercy Health Lorain HospitalComment on above:Performed By: #### NUM #### [facility] ([id number]) [address] [place] [address], [place] [address]Haazmsx [Mass/Vol]9.2 mg/dLNormal8.5-10.5PMercy Health Lorain HospitalComment on above:Performed By: #### NUM #### [facility] ([id number]) [address] [place] [address], [place] [address]Ncbuqrmi [Moles/Vol]104 mmol/EUfyldz73-474VljKkvxti [facility] HospitalComment on above:Performed By: #### NUM #### [facility] ([id number]) [address] [place] [address] 96803WW2 [Moles/Vol]20 mmol/SQxy79-83OplMiypisMercy Health Lorain Hospital Comment on above:Performed By: #### NUM #### [facility] ([id number]) [address] [place] [address] 19230Gdcuqccfpu [Mass/Vol]0.68 mg/dLNormal0.40-1.00ProHca [facility] Healthcare Medical CenterComment on above:Result Comment: METHOD TRACEABLE TO IDMS STANDARD Performed By: #### NUM #### [facility] ([id number]) [address] [place] [address] 39330tCNP (CKD-EPI) NON-RACE DEPENDENT>90Normal>59ProHca [facility] Healthcare Medical CenterComment on above:Result Comment: Reported eGFR is based on the CKD-EPI 2020 equation that does not use a race coefficient.Performed By: #### NUM #### [facility] ([id number]) [address] [place] [address] 05874Pongqwk [Mass/Vol]81 mg/sKBtxhoz44-82OrcEwieomGalion Hospital Comment on above:Performed By: #### NUM #### [facility] ([id number]) [address] [place] [address] 74730Bmcoaacee [Moles/Vol]4.7 mmol/LNormal3.5-5.0ProHca [facility] Healthcare Medical CenterComment on above:Performed By: #### NUM #### [facility] ([id number]) [address] [place] [address] 50753Yohzwzu [Mass/Vol]7.9 g/dLNormal6.0-8.0ProHca [facility] Healthcare Medical CenterComment on above:Performed By: #### NUM #### [facility] ([id number]) [address] [place] [address] 50026Nlmvru [Moles/Vol]135 mmol/HTvdajx526-107RgnGhuxvnGalion HospitalComment on above:Performed By: #### NUM #### [facility] ([id number]) [address] [place] [address] 54067Dwti nitrogen [Mass/Vol]10 mg/dLNormal5-[facility] HospitalComment on above:Performed By: #### NUM #### [facility] ([id number]) [address] [place] [address] 04227REW ( test) Ql (U)on 07-47-8627Lduc HCG ( test) Ql (U)PositiveAbnormalNEGProHca Houston Healthcare Medical CenterComment on above: Performed By: #### 2106-3 #### [facility] ([id number]) [address] [place] [address] 41397QVV.beta subunit IA 3rd IS Qnon 32-29-2960[place] [address] m[IU]/mLNormalProHca Houston Healthcare Medical CenterComment on above:Result Comment: NEW REFERENCE RANGE WEEKS (SINCE LMP) [...] trophoblastic or nontrophoblastic neoplasms. Performed By: #### NUM #### [facility] ([id number]) [address] [place] [address] 06153BTGGITpu 40-40-4519Znhhnw [Catalytic activity/Vol]31 U/LNormal 17-40ProHca [facility] Healthcare Medical CenterComment on above:Performed By: #### NUM #### [facility] ([id number]) [address] [place] [address] 67334DWRRW CULTUREon 05-99-1882Cyrkrime identified Cx Nom (U)CULTURE RESULTS >100,000 ORGANISMS/ML NORMAL UROGENITAL FLORANormalGalion Hospital Comment on above:Performed By: #### 2106-3 #### [facility] ([id number]) [address] [place] [address], [place] [address]VJK MACROSCOPIC NURon 24-59-7301UVXHNCGGB NURNegativeNormalNEG [facility] HospitalComment on above:Performed By: #### NUM #### [facility] ([id number]) [address] [place] [address] 81522DILUO/HGB NURNegativeNormalNEGGalion HospitalComment on above:Performed By: #### NUM #### [facility] ([id number]) [address] [place] [address] 02824FSBWNHJ NURNegativeNormalNEGGalion HospitalComment on above:Performed By: #### NUM #### [facility] ([id number]) [address] [place] [address] 65855WQMNAFA NUR15 mg/dLAbnormalNEGGalion HospitalComment on above:Performed By: #### NUM #### [facility] ([id number]) [address] [place] [address] 51698EBOSFXKBJ ESTERASE NURNegativeNormalNEGGalion HospitalComment on above:Performed By: #### NUM #### [facility] ([id number]) [address] [place] [address] 70325XNMCEGJ NURNegativeNormalNEGProHca Houston Healthcare Medical CenterComment on above:Performed By: #### NUM #### [facility] ([id number]) [address] [place] [address] 71402OQ NUR7.6Qgvesy3.0-8.5PMercy Health Lorain HospitalComment on above:Performed By: #### NUM #### [facility] ([id number]) [address] [place] [address] 70087QBMKNUL NURNegativeNormalNEGProHca Houston Healthcare Medical CenterComment on above:Performed By: #### NUM #### [facility] ([id number]) [address] [place] [address] 66953MVPBNATP GRAVITY NUR1.780Ewydye9.003-1.035ProHca [facility] Healthcare Medical CenterComment on above:Performed By: #### NUM #### [facility] ([id number]) [address] [place] [address] 08832SEWVQXBBHKQE NUR0.2 eu/dLNormal<1.1PMercy Health Lorain Hospital Comment on above:Performed By: #### NUM #### [facility] ([id number]) [address] [place] [address] 79149HBF PREG QUANT HCGon 59-42-4998KIQ PVLECCKQZKGH99bIV/mLNOMS HealthcareComment on above:5-50 0.2-1 WEEK 50-500 1-2 WEEKS 100-5,000 2-3 WEEKS 500-10,000 3-4 WEEKS 1,000-50,000 4-5 WEEKS 10,000-100,000 5-6 WEEKS 15,000-200,000 6-8 WEEKS 10,000-100,000 2-3 MONTHS CLINISYNCNOMS HealthcareTBH PREG QUANT HCGon 05-89-6162ROR UXAHERLYEAAH75pVB/mL NOMS HealthcareComment on above:5-50 0.2-1 WEEK 50-500 1-2 WEEKS 100-5,000 2-3 WEEKS 500-10,000 3-4 WEEKS 1,000-50,000 4-5 WEEKS 10,000-100,000 5-6 WEEKS 15,000-200,000 6-8 WEEKS 10,000-100,000 2-3 MONTHS CLINISYNCNOMS HealthcareCoding Summaryon 08-34-8602Ecayyr SummaryHTMLBase 64 HrugrxbaTPl5jFl+PGhlYWQ+WG0BFLAeN01akOMtwC5aW2UYEJzRMppaJKMDIMsEXpAiriYtZD9qlTVo ZXJu [file] ZXI (more content not included)...NormalChildren'S Hospital For Rehabilitation Hospital.Auto Diff 1on 91-16-9573Qwpm Archuleta %6 %Normal1-12[facility] HospitalComment on above:Performed By: #### [id number], [id number], [id number] #### [facility] (DEFAULT) [address] [place] [address] 90470Odrm Abs#0.0 a99Vbaosq4.0-0.2Mdetwiler memorial hospital HospitalComment on above:Performed By: #### [id number], [id number], [id number] #### [facility] (DEFAULT) [address] [place] [address] 90796Rqkiflduy/100 WBC (Bld)0.6 %Normal0.2-2.0[facility] Comment on above:Performed By: #### [id number], [id number], [id number] #### [facility] (DEFAULT) [address] [place] [address] 67340Era Abs#0.1 m45Gufopt9.0-0.4[facility] HospitalComment on above:Performed By: #### [id number], [id number], [id number] #### [facility] (DEFAULT) [address] [place] [address] 68935Pemkwrulbge/100 WBC (Bld)0.8 %Low0.9-4.0[facility] Comment on above:Performed By: #### [id number], [id number], [id number] #### [facility] (DEFAULT) [address] [place] [address] 11653Zopzp Abs#2.9 a59Yxbzqm7.3-2.9Maupper valley medical center HospitalComment on above:Performed By: #### [id number], [id number], [id number] #### [facility] (DEFAULT) [address] [place] [address] 30576Ncdygcnubou/100 WBC (Bld)36 %Nphbwx12-05L[facility]nbcnd Hospital Comment on above:Performed By: #### [id number], [id number], [id number] #### [facility] (DEFAULT) [address] [place] [address] 76192Xrez Abs#0.5 v67Ythgrk3.0-0.8[facility] HospitalComment on above:Performed By: #### [id number], [id number], [id number] #### [facility] (DEFAULT) [address] [place] [address] 47993Ksbp Abs#4.4 p46Stcvae0.5-9.2[facility] HospitalComment on above:Performed By: #### [id number], [id number], [id number] #### [facility] (DEFAULT) [address] [place] [address] 19765Bsvllusgzmx/100 WBC (Bld)56 %Gcszgk19-96[facility] Comment on above:Performed By: #### [id number], [id number], [id number] #### [facility] (DEFAULT) [address] [place] [address] 64542HSW w/ Auto Diffon 11-85-8253Cyzknrgqyss distribution width (RBC) [Ratio]14.5 %Ypatld31.5-15.0[facility] HospitalComment on above: Performed By: #### [id number], [id number], [id number] #### [facility] (DEFAULT) [address] [place] [address] 42406Lunqcxuiur (Bld) [Volume fraction]37.2 %Gnsqun39.7-40.4 [facility] HospitalComment on above:Performed By: #### [id number], [id number], [id number] #### [facility] (DEFAULT) [address] [place] [address] 38536Qtgztusomw (Bld) [Mass/Vol]12.3 g/aVTylznx89.3-15.9 [facility]:Performed By: #### [id number], [id number], [id number] #### [facility] (DEFAULT) [address] [place] [address] 07940Oup Diff?AutoInvalid Interpretation [facility] Comment on above:Performed By: #### [id number], [id number], [id number] #### [facility] (DEFAULT) [address] [place] [address] 98394BMY (RBC) [Entitic mass]27 pwPcirlz37-14Bfvddyvp Hospital Comment on above:Performed By: #### [id number], [id number], [id number] #### [facility] (DEFAULT) [address] [place] [address] 50422RTAY (RBC) [Mass/Vol]33 g/yJMzgmaq79-74[facility] Comment on above:Performed By: #### [id number], [id number], [id number] #### [facility] [facility] (DEFAULT) [address] [place] [address] 48809IOZ (RBC) [Entitic vol]82 xCChpppr35-853Ozxrswyk Hospital Comment on above:Performed By: #### [id number], [id number], [id number] #### [facility] (DEFAULT) [address] [place] [address] 52777Mogntmkg825 y14Nwvago138-689Tmptlrhd HospitalComment on above:Performed By: #### [id number], [id number], [id number] #### [facility] (DEFAULT) [address] [place] [address] 36943Lwgakpea mean volume (Bld) [Entitic vol]8.6 fLNormal 6.3-10.2MLutheran HospitalComment on above:Performed By: #### [id number], [id number], [id number] #### [facility] (DEFAULT) [address] [place] [address] 72202GTD8.51 e14Kzmydj0.70-5.30[facility] HospitalComment on above:Performed By: #### [id number], [id number], [id number] #### [facility] (DEFAULT) [address] [place] [address] 46699PYX1.8 h60Gcmnyw1.5-10.5[facility] HospitalComment on above: Performed By: #### [id number], [id number], [id number] #### [facility] (DEFAULT) [address] [place] [address] 47085TQU Standardon 58-37-3378nFWP Non AA>60Invalid Interpretation CodeKnox Community HospitalComment on above:Performed By: #### [id number], [id number], [id number] #### [facility] (DEFAULT) [address] [place] [address] 75521tFJN AA>60Invalid Interpretation [facility] Comment on above:Performed By: #### [id number], [id number], [id number] #### [facility] (DEFAULT) [address] [place] [address] 02913Gcvhgae [Mass/Vol]3.8 g/dLNormal3.5-5.0[facility] Hospital Comment on above:Performed By: #### [id number], [id number], [id number] #### [facility] (DEFAULT) [address] [place] [address] 07214Pjbumgl/Globulin [Mass ratio]1.1 {ratio}Low1.4-2.6Mdetwiler memorial hospital HospitalComment on above:Performed By: #### [id number], [id number], [id number] #### [facility] (DEFAULT) [address] [place] [address] 21762Yun Phos79 IU/QMpotkl82-02Cnrbgkox HospitalComment on above:Performed By: #### [id number], [id number], [id number] #### [facility] (DEFAULT) [address] [place] [address] 40011PCJ [Catalytic activity/Vol]21.0 U/VRystmr88.0-54.0 [facility] HospitalComment on above:Performed By: #### [id number], [id number], [id number] #### [facility] (DEFAULT) [address] [place] [address] 44282Kljlr gap [Moles/Vol]3.6 mmol/LLow5.0-19.0[facility] HospitalComment on above:Performed By: #### [id number], [id number], [id number] #### [facility] (DEFAULT) [address] [place] [address] 52354AAZ [Catalytic activity/Vol]18 U/MGgxewz96-80Yqzgpecp HospitalComment on above:Performed By: #### [id number], [id number], [id number] #### [facility] (DEFAULT) [address] [place] [address] 63354Qavi Total0.5 mg/dLNormal0.3-1.2MLutheran HospitalComment on above:Performed By: #### [id number], [id number], [id number] #### [facility] (DEFAULT) [address] [place] [address] 67586Ucrhpyc [Mass/Vol]8.2 mg/dLLow8.9-10.3MLutheran Hospital Comment on above:Performed By: #### [id number], [id number], [id number] #### [facility] (DEFAULT) [address] [place] [address] 53685Uhodlixl [Moles/Vol]113 mmol/SQxph791-009Dpxfgjxd Hospital Comment on above:Performed By: #### [id number], [id number], [id number] #### [facility] (DEFAULT) [address] [place] [address] 37200JX9 [Moles/Vol]24 mmol/FOsztaq55-21Psymqhlm Hospital Comment on above:Performed By: #### [id number], [id number], [id number] #### [facility] (DEFAULT) [address] [place] [address] 83768Xlzbmdgpdn [Mass/Vol]0.67 mg/dLNormal0.60-1.30[facility] HospitalComment on above:Performed By: #### [id number], [id number], [id number] #### [facility] (DEFAULT) [address] [place] [address] 41604Kzzpuxdn (S) [Mass/Vol]3.3 g/dLNormal1.5-4.3Magrcommunity memorial hospital HospitalComment on above:Performed By: #### [id number], [id number], [id number] #### [facility] (DEFAULT) [address] [place] [address] 49096Rkmdexj [Mass/Vol]92.0 mg/hIYpxtqd83.0-118.0[facility] HospitalComment on above:Performed By: #### [id number], [id number], 8981254 #### [facility] (DEFAULT) [address] [place] [address] 46630Andofrqkpl827 mOsm/LInvalid Interpretation CodeChildren'S Hospital For Rehabilitation HospitalComment on above:Performed By: #### [id number], [id number], [id number] #### [facility] (DEFAULT) [address] [place] [address] 47784Nabiwjdwd [Moles/Vol]3.6 mmol/LNormal3.6-5.1Mdetwiler memorial hospital HospitalComment on above:Performed By: #### [id number], [id number], [id number] #### [facility] (DEFAULT) [address] [place] [address] 15791Faviisv [Mass/Vol]7.1 g/dLNormal6.5-8.1Magrcommunity memorial hospital Hospital Comment on above:Performed By: #### [id number], [id number], 5406864 #### [facility] (DEFAULT) [address] [place] [address] 20860Negumr [Moles/Vol]137.0 mmol/KQxvvxl858.0-144.0[facility] HospitalComment on above:Performed By: #### [id number], [id number], 2759592 #### [facility] (DEFAULT) [address] [place], [place] [address]Pxyw nitrogen [Mass/Vol]11 mg/dLNormal8-26[facility] HospitalComment on above:Performed By: #### [id number], [id number], 9136364 #### [facility] (DEFAULT) [address] [place] [address] 51671Trkp nitrogen/Creatinine [Mass ratio]16.4 mg/mgHigh 4.6-16.2Mdetwiler memorial hospital HospitalComment on above:Performed By: #### [id number], [id number], [id number] #### [facility] (DEFAULT) [address] [place] [address] 29272QJ Note-Nursingon 58-02-4460CZ Note-NursingPT. C/O left sided flank pain that wraps [...] A&O x4. PT. has a steady gait. Medical CenterExtra Redon 87-37-1074Lsge CollectedYesInvalid Interpretation Code [facility] HospitalComment on above:Performed By: #### [id number], [id number], [id number] #### [facility] (DEFAULT) [address] [place] [address] 90469NC Standardon 46-92-5180Mchbofpkvg UANormal [facility] HospitalComment on above:Performed By: #### [id number] ####[facility] (DEFAULT)[address] [place] [address] 33956Qecdy (U)YellowNormal [facility] HospitalComment on above:Performed By: #### [id number] ####[facility] (DEFAULT)[address] [place] [address] 46448Mmtqgyp (U) [Mass/Vol] NegativeNormalMagrcommunity memorial hospital HospitalComment on above:Performed By: #### [id number] ####[facility] (DEFAULT)[address] [place] [address] 87108Vtjpcre Ql (U)NegativeNormalMagrcommunity memorial hospital HospitalComment on above:Performed By: #### [id number] ####[facility] (DEFAULT)[address] [place] [address] 62086QX BilirubinNegativeNormalMagrcommunity memorial hospital HospitalComment on above:Performed By: #### [id number] ####[facility] (DEFAULT)[address] [place] [address] 57184YX BloodMODERATEAbnormalNEGATIVEChildren'S Hospital For Rehabilitation HospitalComment on above: Performed By: #### [id number] ####[facility] (DEFAULT)[address] [place] [address] 47773MO ClarityCLEARNormalCLEARChildren'S Hospital For Rehabilitation HospitalComment on above:Performed By: #### [id number] ####[facility] (DEFAULT)[address] [place] [address] 46500UZ Leuk EstNegativeNormalNEGATIVEChildren'S Hospital For Rehabilitation Hospital Comment on above:Performed By: #### [id number] ####[facility] (DEFAULT)[address] [place] [address] 16513LQ NitriteNegativeNormalNEGATIVE [facility] HospitalComment on above:Performed By: #### [id number] ####[facility] (DEFAULT)[address] [place] [address] 64746UU pH6.0Kghkak0-3 [facility] HospitalComment on above:Performed By: #### [id number] ####[facility] (DEFAULT)[address] [place] [address] 88421DQ ProteinNegative NormalNEGATIVEChildren'S Hospital For Rehabilitation HospitalComment on above:Performed By: #### [id number] ####[facility] (DEFAULT)[address] [place] [address] 73179XX Spec Grav>=1.703Malmdm5.001-1.035Magruder HospitalComment on above:Performed By: #### [id number] ####[facility] (DEFAULT)[address] [place], [place] [address]JN Urobilinogen0.2 mg/dLNormal0.2-1.0Kn[facility] Community HospitalComment on above: Performed By: #### [id number] ####[facility])[address] [place], [place] [address]Xkimr SourceClean [facility] Comment on above:Performed By: #### [id number] ####[facility] (DEFAULT)[address] [place], [place] [address]HU 1st Trimesteron 29-00-3197CF 1st TrimesterEXAMINATION: US 1st Trimester, US Transvaginal REASON FOR [...] Apolinar Toussaint MD 06/07/24 1:58 pm Technologist: [facility]icking [facility] HospitalUS Transvaginalon 81-59-8866XC TransvaginalEXAMINATION: US 1st Trimester, US Transvaginal REASON FOR [...] Apolinar Toussaint MD 06/07/24 1:58 pm Technologist: [facility] HospitalhCG Quantitativeon 18-91-1522vZE Quantitative5.2 mIU/mLHigh0.0-0.6MLutheran HospitalComment on above:Result Comment: Post-Menopausal Reference Range is: 0.1-11.6 mIU/mLPerformed By: #### [id number], [id number], [id number] #### [facility] (DEFAULT) [address] [place] [address] 50209Mgftqi Summaryon 05-71-2137Hyrtjr SummaryUTAH VALLEY HOSPITALBase 64 GdwxmwwvKKf0yXq+PGhlYWQ+GE2DLGCuT85eaBCmqX3nV6LXVBdWPzbsUIHELExUBwMvzaKyKB0tvTGi ZXJu [file] YXB (more content not included)...[facility] HospitalCoding SummaryHTMLBase 64 NmjqzguiTQe9hSz+PGhlYWQ+FW6KOLVeR89izNQpmR6mM4RHVFhECbbsGDBNDAnRVxTleeZyBB7ojANm ZXJu [file] c3R (more content not included)...NormalMagrcommunity memorial hospital HospitalProvider Orderson 04-22-1490Knvfbdbl [id number]#1.00OTGTIFF NormalChildren'S Hospital For Rehabilitation HospitalhCG Quantitativeon 02-16-1569oQY Dtmqqqdpolkv40.7 mIU/mL High0.0-0.6Magrcommunity memorial hospital HospitalComment on above:Result Comment: Post-Menopausal Reference Range is: 0.1-11.6 mIU/mLPerformed By: #### [id number], [id number], [id number] #### [facility] (DEFAULT) [address] [place] [address] 44820Hgwqqkue Orderson 00-66-8574Cjreibth Orders [id number]#1.00OTGTIFFNormalChildren'S Hospital For Rehabilitation HospitalhCG Quantitativeon 42-46-7338vCU Nqnndmkwaghy016.4 mIU/mLHigh0.0-0.6Mdetwiler memorial hospital HospitalComment on above:Result Comment: Post-Menopausal Reference Range is: 0.1-11.6 mIU/mLPerformed By: #### [id number] ####[facility] (DEFAULT)[address] [place] [address] 89273CXTAZ METABOLIC PANLon 92-94-3733Tkdrm gap [Moles/Vol]8 mmol/LNormal5-15ProHca Houston Healthcare Medical CenterComment on above: Performed By: #### NUM #### [facility] ([id number]) [address] [place] [address] 39223Gjxizph [Mass/Vol]8.9 mg/dLNormal8.5-10.5ProMedica [facility] Community HospitalComment on above:Performed By: #### NUM #### [facility] ([id number]) [address] [place] [address] 59192Jnyrazzk [Moles/Vol]108 mmol/WQhfijr07-610KvrNkfuzuHca Houston Healthcare Medical CenterComment on above:Performed By: #### NUM #### [facility] ([id number]) [address] [place] [address] 27764AR0 [Moles/Vol]21 mmol/CWws10-52OitPllqwaMercy Health Lorain Hospital Comment on above:Performed By: #### NUM #### [facility] ([id number]) [address] [place] [address] 97592Jigskumvdc [Mass/Vol]0.60 mg/dLNormal0.40-1.00ProHca Houston Healthcare Medical CenterComment on above:Result Comment: METHOD TRACEABLE TO IDMS STANDARD Performed By: #### NUM #### [facility] ([id number]) [address] [place] [address] 04684vDFF (CKD-EPI) NON-RACE DEPENDENT>90Normal>59ProHca Houston Healthcare Medical CenterComment on above:Result Comment: Reported eGFR is based on the CKD-EPI 2020 equation that does not use a race coefficient.Performed By: #### NUM #### [facility] ([id number]) [address] [place] [address] 09984Hhxkzcd [Mass/Vol]99 mg/mUUahgow04-59SnaEkydacGalion Hospital Comment on above:Performed By: #### NUM #### [facility] ([id number]) [address] [place] [address] 44737Kwdpiqjny [Moles/Vol]3.7 mmol/LNormal3.5-5.0ProHca Houston Healthcare Medical CenterComment on above:Performed By: #### NUM #### [facility] ([id number]) [address] [place] [address], [place] [address]Crvqfa [Moles/Vol]137 mmol/OGabchc076-059SdaRswfgy [facility]ont HospitalComment on above:Performed By: #### NUM #### [facility] ([id number]) [address] [place] [address] 50188Azrl nitrogen [Mass/Vol]10 mg/dLNormal5-23ProHca Houston Healthcare Medical CenterComment on above:Performed By: #### NUM #### [facility] ([id number]) [address] [place] [address], [place] [address]TEY AND AUTO DIFFon 68-48-0030GWHKXCGC BASOPHIL0.1 X10E9/L Normal0.0-0.2ProMedMarian Regional Medical CenterComment on above:Performed By: #### NUM #### [facility] ([id number]) [address] [place] [address], [place] [address]IRVMKJMV NEUTROPHIL5.9 X10E9/LNormal1.5-6.6ProHca [facility] Healthcare Medical CenterComment on above:Performed By: #### NUM #### [facility] ([id number]) [address] [place] [address] 84361Mzvjpkthy/100 WBC (Bld)0.9 %NormalGalion Hospital Comment on above:Performed By: #### NUM #### [facility] ([id number]) [address] [place] [address], [place] [address]Xouxtpomguo (Bld) [#/Vol]0.1 10*3/uLNormal0.0-0.4Galion HospitalComment on above:Performed By: #### NUM #### [facility] ([id number]) [address] [place] [address], [place] [address]Saaxlbhzhfh/100 WBC (Bld)0.7 %NormalGalion Hospital Comment on above:Performed By: #### NUM #### [facility] ([id number]) [address] [place] [address] 20255Kahevvmmiml distribution width (RBC) [Ratio]14.8 %Normal 11.5-15.0Galion HospitalComment on above:Performed By: #### NUM #### [facility] ([id number]) [address] [place] [address] 67448Fgjzcehnva (Bld) [Volume fraction]37.5 %Ebkkrh38-98RwkRmiuwqHca Houston Healthcare Medical CenterComment on above:Performed By: #### NUM #### [facility] ([id number]) [address] [place] [address] 24075Glnvpoklve (Bld) [Mass/Vol]12.3 g/sLGxcnpa04.7-15.5PMercy Health Lorain HospitalComment on above:Performed By: #### NUM #### [facility] ([id number]) [address] [place] [address] 45830Etkaczupgnn (Bld) [#/Vol]4.5 10*3/uLHigh1.0-3.5PMercy Health Lorain HospitalComment on above:Performed By: #### NUM #### [facility] ([id number]) [address] [place] [address] 57078Uwytkmauhee/100 WBC (Bld)39.5 %NormalProHca [facility] Healthcare Medical Center Comment on above:Performed By: #### NUM #### [facility] ([id number]) [address] [place] [address] 38202TIO (RBC) [Entitic mass]27.0 ffIzzjnm79-08TeeVyqvutHca Houston Healthcare Medical CenterComment on above:Performed By: #### NUM #### [facility] ([id number]) [address] [place] [address] 18994RXKD (RBC) [Mass/Vol]32.8 g/pINrahlf61-29OnuEwkzovHca Houston Healthcare Medical CenterComment on above:Performed By: #### NUM #### [facility] ([id number]) [address] [place] [address] 43215SFF (RBC) [Entitic vol]82 jBJswmlt59-181VzpVzwtvj [facility] HospitalComment on above:Performed By: #### NUM #### [facility] ([id number]) [address] [place] [address], [place] [address]Ezffmbetv (Bld) [#/Vol]0.8 10*3/uLNormal0-0.9Galion HospitalComment on above:Performed By: #### NUM #### [facility] ([id number]) [address] [place] [address] 36889Mbftdeppv/100 WBC (Bld)7.2 %NormalGalion Hospital Comment on above:Performed By: #### NUM #### [facility] ([id number]) [address] [place] [address] 95716Qggbuzvfnfp/100 WBC (Bld)51.7 %[facility] Comment on above:Performed By: #### NUM #### [facility] ([id number]) [address] [place] [address] 79935Vubbgkfs mean volume (Bld) [Entitic vol]8.9 fLNormal7-12 [facility] HospitalComment on above:Performed By: #### NUM #### [facility] ([id number]) [address] [place] [address], [place] [address]Bfiylcudx (Bld) [#/Vol]393 10*3/qFMrcqpt580-802AivGuhcjwGalion HospitalComment on above:Performed By: #### NUM #### [facility] ([id number]) [address] [place] [address] 07963HCS COUNT4.56 X10E12/LNormal3.80-5.20[facility] Comment on above:Performed By: #### NUM #### [facility] ([id number]) [address] [place] [address] 07803NNI (Bld) [#/Vol]11.3 10*3/uLHigh4.0-11.0ProHca Houston Healthcare Medical CenterComment on above:Performed By: #### NUM #### [facility] ([id number]) [address] [place] [address] 85150HDU ( test) Ql (U)on 74-22-5934Jcvj HCG ( test) Ql (U)PositiveAbnormalNEGGalion HospitalComment on above: Performed By: #### NUM #### [facility] ([id number]) [address] [place] [address] 34902RHE.beta subunit IA 3rd IS Qnon 62-04-9802REF.beta subunit Qn 612 m[IU]/mLNormalGalion HospitalComment on above:Result Comment: NEW REFERENCE RANGE WEEKS (SINCE LMP) [...] trophoblastic or nontrophoblastic neoplasms. Performed By: #### NUM #### [facility] ([id number]) [address] [place] [address] 98006HUY MACROSCOPIC NURon 47-82-4974UPKXMWETF NURNegativeNormalNEG ProMnoland hospital montgomerya [facility] Community HospitalComment on above:Performed By: #### NUM #### [facility] ([id number]) [address] [place] [address] 08239OKXGA/HGB NURMODERATEAbnormalNEGGalion Hospital Comment on above:Performed By: #### NUM #### [facility] ([id number]) [address] [place] [address] 37156LZOSAZD NURNegativeNormalNEGGalion HospitalComment on above:Performed By: #### NUM #### [facility] ([id number]) [address] [place] [address] 02708CHWKQFR NURNegativeNormalNEGGalion HospitalComment on above:Performed By: #### NUM #### [facility] ([id number]) [address] [place] [address] 04957DFIDKMBAW ESTERASE NURNegativeNormalNEGGalion HospitalComment on above:Performed By: #### NUM #### [facility] ([id number]) [address] [place] [address] 90305MQDIDMU NURNegativeNormalNEGGalion HospitalComment on above:Performed By: #### NUM #### [facility] ([id number]) [address] [place] [address] 74993VU NUR6.3Burwcg3.0-8.5ProMed[facility] Community HospitalComment on above:Performed By: #### NUM #### [facility] ([id number]) [address] [place] [address] 36648YBJPKDD NURNegativeNormalNEGGalion HospitalComment on above:Performed By: #### NUM #### [facility] ([id number]) [address] [place] [address] 68611NBROIVBF GRAVITY NUR1.562Crhbrl3.003-1.035ProHca [facility] Healthcare Medical CenterComment on above:Performed By: #### NUM #### [facility] ([id number]) [address] [place] [address] 97352XQLQZYXHWIWS NUR0.2 eu/dLNormal<1.1PMercy Health Lorain Hospital Comment on above:Performed By: #### NUM #### [facility] ([id number]) [address] [place] [address], [place], [place] [address]JU PREG LESS THAN 14 WKS WITH TRANSVAGINALon 46-95-9503CN PREG LESS THAN 14 WKS WITH TRANSVAGINALUS PREG LESS THAN 14 WKS WITH TRANSVAGINAL [...] 2.2 cm complex cyst of the left ovary,suspected corpus luteal. Symmetric color Doppler flow is [...] by Flakito Arauz MD on 05/30/2024 10:23 PMNormalProMedica [facility] TBH PREG QUANT HCGon 05-02-2899RHB GCXAVPRWWZLL518tAZ/mLNOMS HealthcareComment on above:5-50 0.2-1 WEEK 50-500 1-2 WEEKS 100-5,000 2-3 WEEKS 500-10,000 3-4 WEEKS 1,000-50,000 4-5 WEEKS 10,000-100,000 5-6 WEEKS 15,000-200,000 6-8 WEEKS 10,000-100,000 2-3 MONTH[facility]YSt[facility] CenterTBH PREG QUANT HCGon 06-30-5846JHL COTUCOVLUKVH498iIT/mL NOMS HealthcareComment on above:5-50 0.2-1 WEEK 50-500 1-2 WEEKS 100-5,000 2-3 WEEKS 500-10,000 3-4 WEEKS 1,000-50,000 4-5 WEEKS 10,000-100,000 5-6 WEEKS 15,000-200,000 6-8 WEEKS 10,000-100,000 2-3 MONTHS CLINISYNCNOWY HealthcareCBC AND AUTO DIFFon 07-73-3972SZTSSSXM BASOPHIL0.1 X10E9/LNormal0.0-0.2PMercy Health Lorain HospitalComment on above:Performed By: #### [facility], 1986-08 #### [facility] ([id number]) [address] [place] [address] 58129RGLHPOFO NEUTROPHIL8.0 X10E9/LHigh1.5-6.6ProHca [facility] Healthcare Medical CenterComment on above:Performed By: #### [facility], 1986-08 #### [facility] ([id number]) [address] [place] [address] 78129Rqlssueft/100 WBC (Bld)0.8 %[facility] Comment on above:Performed By: #### [facility], 1986-08 #### [facility] ([id number]) [address] [place] [address] 27133Vlfzoqkqzix (Bld) [#/Vol]0.1 10*3/uLNormal0.0-0.4Galion HospitalComment on above:Performed By: #### [facility], 1987-08 #### [facility] ([id number]) [address] [place] [address] 96282Lcansrhpgbx/100 WBC (Bld)0.5 %[facility] Comment on above:Performed By: #### [facility], 1987-08 #### [facility] ([id number]) [address] [place] [address] 82140Eyqajqquenc distribution width (RBC) [Ratio]14.9 %Normal 11.5-15.0Gal[facility] HospitalComment on above:Performed By: #### [facility], 1987-08 #### [facility] ([id number]) [address] [place] [address] 47878Sapazubmyi (Bld) [Volume fraction]38.2 %Effrus20-24QkqKkccddHca Houston Healthcare Medical CenterComment on above:Performed By: #### [facility], 1987-08 #### [facility] ([id number]) [address] [place] [address] 06471Xvcszshrtn (Bld) [Mass/Vol]12.8 g/bULuksvg74.7-15.5PMercy Health Lorain HospitalComment on above:Performed By: #### [facility], 1987-08 #### [facility] ([id number]) [address] [place] [address] 08825Qhwbshqvyeg (Bld) [#/Vol]3.2 10*3/uLNormal1.0-3.5PMercy Health Lorain HospitalComment on above:Performed By: #### [facility], 1987-08 #### [facility] ([id number]) [address] [place] [address] 61061Obvmervgfhj/100 WBC (Bld)25.8 %NormalGalion Hospital Comment on above:Performed By: #### [facility], 1987-08 #### [facility] ([id number]) [address] [place] [address] 24849PNO (RBC) [Entitic mass]27.0 ldLygsup53-45KxuFcixacHca Houston Healthcare Medical CenterComment on above:Performed By: #### [facility], 1987-08 #### [facility] ([id number]) [address] [place] [address] 21080YZFR (RBC) [Mass/Vol]33.6 g/qAGawbkb37-19IidUxtntxGalion HospitalComment on above:Performed By: #### [facility], 1987-08 #### [facility] ([id number]) [address] [place] [address] 60213FQA (RBC) [Entitic vol]80 kHJdwnko57-356CiiFmcuwiGalion HospitalComment on above:Performed By: #### [facility], 1987-08 #### [facility] ([id number]) [address] [place] [address] 38770Vkqmorctf (Bld) [#/Vol]0.9 10*3/uLNormal0-0.9Galion HospitalComment on above:Performed By: #### [facility], 1987-08 #### [facility] ([id number]) [address] [place] [address] 48521Xlhhuptrr/100 WBC (Bld)7.3 %[facility] Comment on above:Performed By: #### [facility], 1986-08 #### [facility] ([id number]) [address] [place] [address] 37703Zeevqjcngrk/100 WBC (Bld)65.6 %[facility] Comment on above:Performed By: #### [facility], 1986-08 #### [facility] ([id number]) [address] [place] [address] 31424Zxzocfcg mean volume (Bld) [Entitic vol]8.5 fLNormal7-12 ProMColorado River Medical CenterComment on above:Performed By: #### [facility], 1986-08 #### [facility] ([id number]) [address] [place], [place] [address]Faxtowuwg (Bld) [#/Vol]412 10*3/aLXfknhx415-142ZisYqhqde [facility]remont HospitalComment on above:Performed By: #### [facility], 1987-08 #### [facility] ([id number]) [address] [place] [address] 00128JAM COUNT4.75 X10E12/LNormal3.80-5.20[facility] Comment on above:Performed By: #### [facility], 1987-08 #### [facility] ([id number]) [address] [place] [address] 58213JQU (Bld) [#/Vol]12.3 10*3/uLHigh4.0-11.0Galion HospitalComment on above:Performed By: #### [facility], 1987-08 #### [facility] ([id number]) [address] [place] [address] 13613ISGEBYHRS/GC BY PCRon 76-14-4333IPOGQZNXG/GC BY PCRSPECIMEN SOURCE CERVIX Corrected on 05/01 AT 1735: [...] because results are dependent on adequate specimen collection.NormalGalion Hospital Comment on above:Performed By: #### CGS #### [facility] ([id number]) [address] [place], [place] [address]YTDQWJCWERNGU METABOLIC PANELon 05-05-8047Mzfdxxa [Mass/Vol]4.1 g/dLNormal3.2-5.3ProMedMarian Regional Medical CenterComment on above:Performed By: #### [facility], 1986-08 #### [facility] ([id number]) [address] [place] [address], [place] [address]JWR [Catalytic activity/Vol]92 U/MWbmecb33-841YwfXoapulHca Houston Healthcare Medical CenterComment on above:Performed By: #### [facility], 1986-08 #### [facility] ([id number]) [address] [place] [address], [place] [address]YRQ [Catalytic activity/Vol]19 U/LNormal0-31PMercy Health Lorain HospitalComment on above:Performed By: #### [facility], 1986-08 #### [facility] ([id number]) [address] [place] [address], [place] [address]Csfgs gap [Moles/Vol]7 mmol/LNormal5-15ProHca Houston Healthcare Medical CenterComment on above:Performed By: #### [facility], 1986-08 #### [facility] ([id number]) [address] [place] [address], [place] [address]PAU [Catalytic activity/Vol]17 U/LNormal0-41ProHca Houston Healthcare Medical CenterComment on above:Performed By: #### [facility], 1986-08 #### [facility] ([id number]) [address] [place] [address], [place] [address]Omvbmjxsb [Mass/Vol]0.3 mg/dLNormal0.3-1.2PMercy Health Lorain HospitalComment on above:Performed By: #### [facility], 1986-08 #### [facility] ([id number]) [address] [place] [address], [place] [address]Wtlpxoz [Mass/Vol]8.7 mg/dLNormal8.5-10.5PSoutheast [facility] HospitalComment on above:Performed By: #### [facility], 1986-08 #### [facility] ([id number]) [address] [place] [address] 51721Tqlbkpin [Moles/Vol]109 mmol/WGnkipb74-388VulBzzgnuHca Houston Healthcare Medical CenterComment on above:Performed By: #### [facility], 1987-08 #### [facility] ([id number]) [address] [place] [address] 42366XO3 [Moles/Vol]23 mmol/IVpqoei44-12ZsvMuoewzMercy Health Lorain Hospital Comment on above:Performed By: #### [facility], 1987-08 #### [facility] ([id number]) [address] [place] [address] 21573Nawfwferyo [Mass/Vol]0.61 mg/dLNormal0.40-1.00Galion HospitalComment on above:Result Comment: METHOD TRACEABLE TO IDMS STANDARD Performed By: #### [facility], 1986-08 #### [facility] ([id number]) [address] [place] [address] 18126bHFL (CKD-EPI) NON-RACE DEPENDENT>90Normal>59ProHca Houston Healthcare Medical CenterComment on above:Result Comment: Reported eGFR is based on the CKD-EPI 2020 equation that does not use a race coefficient.Performed By: #### [facility], 1986-08 #### [facility] ([id number]) [address] [place] [address] 57133Xsyoxvm [Mass/Vol]92 mg/aLRlizqq91-75UocDtgjnvGalion Hospital Comment on above:Performed By: #### [facility], 1987-08 #### [facility] ([id number]) [address] [place] [address] 47966Kxpctnpdl [Moles/Vol]3.6 mmol/LNormal3.5-5.0Galion HospitalComment on above:Performed By: #### [facility], 1987-08 #### [facility] ([id number]) [address] [place] [address] 49640Mhzjrit [Mass/Vol]7.1 g/dLNormal6.0-8.0Galion HospitalComment on above:Performed By: #### [facility], 1987-08 #### [facility] ([id number]) [address] [place] [address] 17620Epncix [Moles/Vol]139 mmol/YGswdxg975-334NcjDsqvag [facility]ont HospitalComment on above:Performed By: #### [facility], 1987-08 #### [facility] ([id number]) [address] [place] [address] 80677Apmd nitrogen [Mass/Vol]13 mg/dLNormal5-23ProHca Houston Healthcare Medical CenterComment on above:Performed By: #### [facility], 1987-08 #### [facility] ([id number]) [address] [place] [address] 01543EYY [Mass/Vol]on 05-01-2024 REACTIVE PROTEIN1.4 mg/dLHigh 0.000-0.744PMercy Health Lorain HospitalComment on above:Performed By: #### [facility], 1987-08 #### [facility] ([id number]) [address] [place] [address] 80856RKA ( test) Ql (U)on 86-51-6462Pvby HCG ( test) Ql (U)NegativeNormalNEGGalion HospitalComment on above: Performed By: #### 2106-3 #### [facility] ([id number]) [address] [place] [address] 27787NJHZU CULTUREon 23-87-1190Hdtenbjw identified Cx Nom (U)CULTURE RESULTS <10,000 ORGANISMS/ML NORMAL URO GENITAL FLORANoParkview Health Comment on above:Performed By: #### 630-4 #### [facility] ([id number]) [address] [place] [address], [address] [place], [place] [address]LXW MACROSCOPIC NURon 60-02-5124NBEKXHTUV NURNegativeNormalNEG [facility] Community HospitalComment on above:Performed By: #### NUM #### [facility] ([id number]) [address] [place] [address], [place], [place] [address]LBOIY/HGB NURNegativeNormalNEGProHolzer Hospitalca [facility] Community HospitalComment on above:Performed By: #### NUM #### [facility] ([id number]) [address] [place] [address], [place], [place] [address]HXPMJJY NURNegativeNormalNEGProHca Houston Healthcare Medical CenterComment on above:Performed By: #### NUM #### [facility] ([id number]) [address] [place] [address] 49738MBDCCZE NURNegativeNormalNEGProHca Houston Healthcare Medical CenterComment on above:Performed By: #### NUM #### [facility] ([id number]) [address] [place] [address] [place] [address]LHXLDSWIJ ESTERASE NURNegativeNormalNEGGalion HospitalComment on above:Performed By: #### NUM #### [facility] ([id number]) [address] [place] [address] 20282QHYTMQS NURNegativeNormalNEGProHca Houston Healthcare Medical CenterComment on above:Performed By: #### NUM #### [facility] ([id number]) [address] [place] [address] [place] [address]MN NUR6.4Qpljmb9.0-8.5Pro[facility] HospitalComment on above:Performed By: #### NUM #### [facility] ([id number]) [address] [place] [address] [place] [address]EQVOWEG NURNegativeNormalNEGProHolzer Hospitalca [facility] Community HospitalComment on above:Performed By: #### NUM #### [facility] ([id number]) [address] [facility] [place], [facility], [place] [address]SONONEKE GRAVITY NEHA>=1.331Krzfnw3.003-1.035Pro[facility] Community HospitalComment on above:Performed By: #### NUM #### [facility] ([id number]) [address] [facility], [facility], [place] [address]QEZGBFITTBWC NUR0.2 eu/dLNormal<1.1[facility] Comment on above:Performed By: #### NUM #### [facility] ([id number]) [address] [facility], [facility], [place] [address]ME PELVIC WITH TRANSVAGINAL AND DUPLEXon 14-61-8108IT PELVIC WITH TRANSVAGINAL AND DUPLEXUS PELVIC WITH TRANSVAGINAL AND DUPLEX CLINICAL INFORMATION: [...] venous outflow structures of the ovaries with arterialand venous spectral waveforms obtained and reviewed in view of the clinical history of Evaluate forOvarian Torsion . Duplex spectral Doppler document arterial and venous spectral waveforms documented within the majorarterial inflow and venous outflow of both ovaries. [...] arterial and venous color Doppler flow without evidenceof torsion. The arterial and venous waveforms are within normal limits. There is of free fluid in the cul-de-sac. IMPRESSION: * Normal uterus. * Normal ovaries with follicles. No evidence of adnexal mass or ovarian torsion. * Small amount of free fluid is seen in the cul-de-sac. Finalized by Gigi Alves MD on 05/01/2024 1:36 PMNLicking Memorial HospitalVAGINITIS PANEL PCRon 33-22-4727UASFNKZTY PANEL PCRBACT. VAGINOSIS DNA Detected (qualifier value) Qualitative results [...] accordance with clinical presentation to determine patient diagnosis.[facility] CenterComment on above:Performed By: #### VPPCR #### [facility] ([id number]) [address] [place] [address], [address] [place], [place] [address]Jbgqfp Summaryon 31-95-6619Dnsqml SummaryHTMLBase 64 FaekpsdyHJz3cFg+PGhlYWQ+BM7UYEDtF38ulQYexW8rG5YTUXgCXxbvQWUBHWuBHxKsdbWeAN1moDVu ZXJu [file] ZXI (more content not included)...[facility] HospitalXR CHEST 1 VWon 99-33-2525UI CHEST 1 VWXR CHEST 1 VW Portable chest: HISTORY: Cough and fever. The chest was obtained. Right upper lobe density is most likely represent granulomas. Lungs otherwise clear. There is no cardiac contour abnormality. No effusion or pneumothorax. IMPRESSION: No acute findings. Finalized by Yvan Oseguera MD on 04/22/2024 1:[address] [facility] HospitalED Clinical Summaryon [id number] [facility] [address] [place], [place] [id number] ED Clinical Summary PERSON INFORMATION Name: LIA DESAI Age: 23 Years Sex: FEMALE : 2000 MRN: Acct#: Visit Reason: Body aches; Cough; FEVER, COUGH Arrival: 04/19/2024 08:50:39 Discharge: 04/19/2024 09:24:00 LOS: 000 00:34 Check In: 04/19/2024 08:50:39 Checkout:04/19/2024 09:24:00 Address: [address] [place] [address] PCP: Provider, Unlisted PROVIDER INFORMATION Provider Role Assigned Unassigned Abner Harvey MD ED Provider 04/19/2024 09:05:18 Jayne Zuñiga DENTAL BILLING SPECIALIST Nurse 04/19/2024 09:05:51 VITALS INFORMATION Vital Sign [...] reactions were documented.. Medications: (Selected) Prescriptions Prescribed Mol[place] Saline Mist 0.65% nasal spray: 2 spray(s), !-Nasal, QID, for 7 day(s), 1 EA, 0 Refill(s) metroNIDAZOLE 0.75% vaginal gel with applicator: 1 jamel, Vaginal, Once, 70 gm, 0 Refill(s). Past Medical/ Family/ Social History Medical history: Resolved Disease caused by 2019 novel coronavirus ([id number]): Onset on 11/23/2020 at 20 years. Resolved. Comments: 11/23/2020 CDT 16:07 CDT - SYSTEM Problem added by Rule (IC_COVID19_AUTO_PROBLEM) following 2019 Novel Coronavirus (CoVID-19), MILY L from Nasopharyngeal Swab collected on 22-NOV-2020 16:44:00 EDT tested positive for COVID-19. no history ([id number]): Resolved. Contact dermatitis (76757265): Resolved. Pharyngitis (9373330311): Resolved. Cough (67756329): Resolved., Reviewed as documented in chart. Surgical history: Tonsillectomy and adenoidectomy ([id number])., Reviewed as documented in chart. Family history: [...] Use: Never , R (more content not included)...[facility] Note - Physicianon [id number] Note - PhysicianPatient: LIA DESAI Age: 23 years Sex: FEMALE [...] reactions were documented.. Medications: (Selected) Prescriptions Prescribed Molalla Saline Mist 0.65% nasal spray: 2 spray(s), !-Nasal, QID, for 7 day(s), 1 EA, 0 Refill(s) metroNIDAZOLE 0.75% vaginal gel with applicator: 1 jamel, Vaginal, Once, 70 gm, 0 Refill(s). Past Medical/ Family/ Social History Medical history: Resolved Disease caused by 2019 novel coronavirus ([id number]): Onset on 11/23/2020 at 20 years. Resolved. Comments: 11/23/2020 CDT 16:07 CDT - SYSTEM Problem added by Rule (IC_COVID19_AUTO_PROBLEM) following 2019 Novel Coronavirus (CoVID-19), MILY L from Nasopharyngeal Swab collected on 22-NOV-2020 16:44:00 EDT tested positive for COVID-19. no history ([id number]): Resolved. Contact dermatitis (48114215): Resolved. Pharyngitis (7768647645): Resolved. Cough (62751951): Resolved., Reviewed as documented in chart. Surgical history: Tonsillectomy and adenoidectomy ([id number])., Reviewed as documented in chart. Family history: [...] marijuana about 4 hits/day - 03/07/2022 14:36 Shy Lombardo RN, Chloé 04/15/2023 Substance use: Current Type: Marijuana [...] Tympanic membranes clear, or (more content not included)...[facility] HospitalED Patient Summaryon [id number] [facility] [address] [place] [address] PATIENT DISCHARGE INSTRUCTIONS Patient Information Name: LIA DESAI Age: 23 Years Date of : 2000 Reason For Visit: Body aches; Cough; FEVER, COUGH Arrival Time: 04/19/2024 08:50:39 Primary Care Physician: Provider, Unlisted Attending Physician: Abner Harvey MD Comment: Visit Diagnosis: Diagnoses This Visit Body aches ([id number]) Cough ([id number]) Viral URI with cough (J06.9) The Pharmacy at [facility] is open Saturday through Saturday from 9A to 6P and Saturday and Saturday from 9A to 5P Prescription Information: If you have been given a prescription for narcotics, seek immediate medical attention if you have any difficulty breathing or any sudden status changes such as confusion andsleepiness. If you or anyone you know is experiencing suicidal thoughts, mental health, alcohol and/or drug addiction problems; contact the [facility] 29/10 Crisis Hotline -Text 2NNXM ob 728375. If you received any narcotics, sedation, or [...] doctor. Alternatively, you may follow-up with the [facility] Urgent Care if you are not able to see a PCP in the recommended time. Continue with the current treatment as outlined by the ER physician, Dr Harvey. Called the emergency department if you have any questions concern. Return to the emergency department if you have significant symptoms that concerns you. Medication Information: The exam and treatment you received today in the [facility] Emergency Department were for an urgent problem and are not intended as complete care. It is important for you to follow up with a doctor, nurse practitioner, or physician?s podiatrist assistant for ongoing care. If your symptoms become worse or you donot improve as expected and you are unable [...] so we can reach you if necessary. [facility] has provided you with a complete list of medications post discharge. Please inform your pharmacy manager/provider of your visit and for further instruction [...] Vaginal once. Refills: 0. sodium chloride nasal (Molalla Saline Mist 0.65% nasal spray) 2 spray(s) Nasal 4 times a day for 7 Days. Refills: 0. Visit Information Allergies: Substance Reaction Symptoms Type Comments Zithromax Drug Adhesive Bandage Other Vital Signs: Vitals and Measurements this Visit (last charted value for your 04/19/2024 visit) Vital Signs This Visit Temperature Temporal Artery: 36.4 DegC Peripheral Pulse Rate: 77 bpm Respiratory Ra (more content not included)...[facility] HospitalProgress Note - Nurseon 42-73-7530Pttuazqx Note - NursePatient walks to room 6. Patient is alert and oriented X 4. Patient is here for a cough, body aches, fever and sore throat since yesterday. Pt. states she tested herself for covid yesterday and had afaint positive. [Electronically Signed on: 04/19/2024 09:11 EST] July RN [Verified on: 04/19/2024 09:11 EST] July RNNoSelect Medical OhioHealth Rehabilitation HospitalCoding Summaryon 74-28-5261Lhulqo SummaryMLBase 64 LipxuiunQPw9nUj+PGhlYWQ+TR5SJHXoD08ecAGelM2zZ2ZRPHjDChgzAXGYPOqKCyHwirPyPI0vqXYg ZXJu [file] ZXI (more content not included)...[facility].Auto Diff 140-58-4738Uqxp [place] %8 %[address] Cuevas StreetComment on above:Performed By: #### [id number], [id number], 3694143, 2690561 #### [facility] (DEFAULT) [address] [place] [address] 42114Pcri Abs#0.1 i28Nymoho4.0-0.2Magrcommunity memorial hospital HospitalComment on above:Performed By: #### [id number], [id number], 2005793, 0443635 #### [facility] (DEFAULT) [address] [place] [address] 70501Sqlfveqca/100 WBC (Bld)1.0 %Normal0.2-2.0Maupper [facility] medical center Hospital Comment on above:Performed By: #### [id number], [id number], 0110814, 0612775 #### [facility] (DEFAULT) [address] [place] [address] 39652Oox Abs#0.1 d42Ahmdxd7.0-0.4Magrcommunity memorial hospital HospitalComment on above:Performed By: #### [id number], [id number], 7487410, 3071940 #### [facility] (DEFAULT) [address] [place] [address] 40028Ktpuzufbofi/100 WBC (Bld)0.9 %Normal0.9-4.0Maupper valley medical center HospitalComment on above:Performed By: #### [id number], [id number], 3656144, 4696725 #### [facility] (DEFAULT) [address] [place] [address] 19924Dmcty Abs#2.5 t76Wfumse2.3-2.9Magrcommunity memorial hospital HospitalComment on above:Performed By: #### [id number], [id number], 8612990, 6590475 #### [facility] (DEFAULT) [address] [place] [address] 16477Ugqxedxejrn/100 WBC (Bld)32 %Axelfq56-57Wfbobrxz Hospital Comment on above:Performed By: #### [id number], [id number], 0513545, 5057657 #### [facility] (DEFAULT) [address] [place] [address] 49649Rvuy Abs#0.6 e62Azpfav6.0-0.8Maupper valley medical center HospitalComment on above:Performed By: #### [id number], [id number], 5817873, 0365091 #### [facility] (DEFAULT) [address] [place] [address] 35354Dgkv Abs#4.5 r30Sgfjnd8.5-9.2Mdetwiler memorial hospital HospitalComment on above:Performed By: #### [id number], [id number], 5834806, 4091466 #### [facility] (DEFAULT) [address] [place] [address] 72367Ususmzdzgkh/100 WBC (Bld)58 %Hfltqd23-12Ixeiblfj Hospital Comment on above:Performed By: #### [id number], [id number], 7635174, 7488466 #### [facility] (DEFAULT) [address] [place] [address] 05219ZSJ w/ Auto Diffon 40-37-9345Eyivzjtkbik distribution width (RBC) [Ratio]15.2 %High11.5-15.0[facility] HospitalComment on above: Performed By: #### [id number], [id number], 0495556, 0572993 #### [facility] (DEFAULT) [address] [place] [address] 15735Cgrckxhdac (Bld) [Volume fraction]39.9 %Gnhssm60.7-40.4 [facility] HospitalComment on above:Performed By: #### [id number], [id number], 8318745, 3529701 #### [facility] (DEFAULT) [address] [place] [address] 27804Xrmcspoaah (Bld) [Mass/Vol]13.3 g/tCJgzozs75.3-15.9 [facility] HospitalComment on above:Performed By: #### [id number], [id number], 5864206, 6166193 #### [facility] (DEFAULT) [address] [place] [address] 96937Nhq Diff?AutoInvalid Interpretation [facility] Comment on above:Performed By: #### [id number], [id number], 7907876, 2898871 #### [facility] (DEFAULT) [address] [place] [address] 21037WEL (RBC) [Entitic mass]27 toEqzzca91-27Yqxlisso Hospital Comment on above:Performed By: #### [id number], 5039609553, 6153972, 8877445 #### [facility] (DEFAULT) [address] [place] [address] 88236ZGNX (RBC) [Mass/Vol]33 g/yGKwllvw30-54Dfvynfwt Hospital Comment on above:Performed By: #### [id number], [id number], 0375290, 9938088 #### [facility] (DEFAULT) [address] [place] [address] 11521SHY (RBC) [Entitic vol]81 yVEkrcvo29-092Fohulgtr Hospital Comment on above:Performed By: #### [id number], [id number], 6699830, 6683640 #### [facility] (DEFAULT) [address] [place] [address] 31725Mamqcrji157 z97Vknqed071-827Mauznnur HospitalComment on above:Performed By: #### [id number], [id number], 0966693, 0427863 #### [facility] (DEFAULT) [address] [place] [address] 03236Ynwiycue mean volume (Bld) [Entitic vol]8.4 fLNormal 6.3-10.2Mdetwiler memorial hospital HospitalComment on above:Performed By: #### [id number], [id number], 8387137, 0088709 #### [facility] (DEFAULT) [address] [place] [address] 89609KNP6.90 k99Pnwolq5.70-5.30[facility] HospitalComment on above:Performed By: #### [id number], 6777827331, 1560995, 3926299 #### [facility] (DEFAULT) [address] [place] [address] 68557EGY8.7 d27Vnhkbu4.5-10.5[facility] HospitalComment on above: Performed By: #### [id number], [id number], 6533848, 6652891 #### [facility] (DEFAULT) [address] [place] [address] 54839QEC Standardon 41-10-6073uZQB Non AA>60Invalid Interpretation [facility] Medical CenterComment on above:Performed By: #### [id number], [id number], 6730028, 7021237 #### [facility] (DEFAULT) [address] [place] [address] 54995uAOP AA>60Invalid Interpretation [facility] Comment on above:Performed By: #### [id number], [id number], 2047169, 6386075 #### [facility] (DEFAULT) [address] [place] [address] 55552Amfnzpl [Mass/Vol]3.9 g/dLNormal3.5-5.0[facility] Comment on above:Performed By: #### [id number], [id number], 4726587, 4042064 #### [facility] (DEFAULT) [address] [place] [address] 13642Txqvcza/Globulin [Mass ratio]1.0 {ratio}Low1.4-2.6MLutheran HospitalComment on above:Performed By: #### [id number], [id number], 6356627, 7131358 #### [facility] (DEFAULT) [address] [place] [address] 58944Lks Rbzm341 IU/LPtyh09-89Zkbbdnyb HospitalComment on above:Performed By: #### [id number], 7217793559, 1895600, 6186054 #### [facility] (DEFAULT) [address] [place] [address] 35309RZI [Catalytic activity/Vol]24.0 U/PXrumvh25.0-54.0 [facility] HospitalComment on above:Performed By: #### [id number], [id number], 8007841, 6725598 #### [facility] (DEFAULT) [address] [place] [address] 78466JRW [Catalytic activity/Vol]22 U/OXozdyt22-58Mqypfmek HospitalComment on above:Performed By: #### [id number], 9201215702, 5496066, 9760486 #### [facility] (DEFAULT) [address] [place] [address] [id number] Total0.6 mg/dLNormal0.3-1.2[facility] HospitalComment on above:Performed By: #### [id number], [id number] #### [facility] (DEFAULT) [address] [place] [address] [id number] [Mass/Vol]0.70 mg/dLNormal0.60-1.30[facility] HospitalComment on above:Performed By: #### [id number], [id number], [id number], [id number] #### [facility] (DEFAULT) [address] [place] [address] 87581Rknumdae (S) [Mass/Vol]3.6 g/dLNormal1.5-4.3[facility] HospitalComment on above:Performed By: #### [id number], [id number], [id number], [id number] #### [facility] (DEFAULT) [address] [place] [address] 22732Iaciwgkevf775 mOsm/LInvalid Interpretation CodeChildren'S Hospital For Rehabilitation HospitalComment on above:Performed By: #### [id number], [id number], [id number], [id number] #### [facility] (DEFAULT) [address] [place] [address] 21283Lpgakfy [Mass/Vol]7.5 g/dLNormal6.5-8.1[facility] Hospital Comment on above:Performed By: #### [id number], [id number], [id number], [id number] #### [facility] (DEFAULT) [address] [place] [address] 47103Lbgn nitrogen [Mass/Vol]14 mg/dLNormal8-26[facility] HospitalComment on above:Performed By: #### [id number], [id number], [id number], [id number] #### [facility] (DEFAULT) [address] [place] [address] 24562Jtpl nitrogen/Creatinine [Mass ratio]20.0 mg/mgHigh 4.6-16.2[facility] HospitalComment on above:Performed By: #### [id number], [id number], 5352865, 6061452 #### [facility] (DEFAULT) [address] [place] [address] 02502Ximmo gap [Moles/Vol]14.2 mmol/LNormal5.0-19.0[facility] HospitalComment on above:Performed By: #### [id number], [id number], [id number], [id number] #### [facility] (DEFAULT) [address] [place] [address] 88240Kaqkkas [Mass/Vol]8.7 mg/dLLow8.9-10.3[facility] Hospital Comment on above:Performed By: #### [id number], [id number], [id number], 9761152 #### [facility] (DEFAULT) [address] [place] [address] 83245Wlatrovd [Moles/Vol]104 mmol/IHzlnis774-791Qwuauzyq HospitalComment on above:Performed By: #### [id number], [id number], 2959971, [id number] #### [facility] (DEFAULT) [address] [place] [address] 00406TG7 [Moles/Vol]22 mmol/DIjitco83-68Jlqknkdz Hospital Comment on above:Performed By: #### [id number], [id number], 9640456, 5463547 #### [facility] (DEFAULT) [address] [place] [address] 98401Xvqxhuf [Mass/Vol]96.0 mg/kXQqfiwc87.0-118.0[facility] HospitalComment on above:Performed By: #### [id number], [id number], 5014990, 7313586 #### [facility] (DEFAULT) [address] [place] [address] 62216Lgmxjyojm [Moles/Vol]4.2 mmol/LNormal3.6-5.1[facility] HospitalComment on above:Performed By: #### [id number], [id number], 7338372, 6810779 #### [facility] (DEFAULT) [address] [place], [place] [address]Tgmfvl [Moles/Vol]136.0 mmol/GFwjipc715.0-144.0[facility] HospitalComment on above:Performed By: #### [id number], [id number], [id number], 2683044 #### [facility] (DEFAULT) [address] [place] [address] 47994XB Abdomen/Pelvis w/o Contraston 75-75-2407CF Abdomen/Pelvis w/o ContrastEXAMINATION: CT Abdomen/Pelvis w/o Contrast HISTORY: Abdominal pain,left [...] Christian Hope MD 03/20/24 9:36 am Technologist: [facility]LLicking [facility] HospitalED Clinical Summaryon [id number] Clinical [facility] - Emergency Department [address] [place] [address] ED Clinical Summary PERSON INFORMATION Name: LIA DESAI Age: 23 Years Sex: FEMALE : 2000 MRN: Acct#: Visit Reason: Back pain; LOW BACK PAIN Arrival: 03/20/2024 06:28:58 Discharge: 03/20/2024 09:56:00 LOS: 000 03:28 Check In: 03/20/2024 06:28:58 Checkout:03/20/2024 09:56:00 Address: [address] [place] [address] PCP: Provider, Unlisted PROVIDER INFORMATION Provider Role Assigned Unassigned Oneil Littlejohn DO ED Provider 03/20/2024 06:30:59 Sudha Virgen DENTAL BILLING SPECIALIST Nurse 03/20/2024 07:13:25 Joelle Nava DENTAL BILLING SPECIALIST Nurse 03/20/2024 07:40:00 Abner Harvey MD ED [...] to the emergency room. She has not hadany right flank pain she has not had [...] with discomfort to the left CVA, with norash noted there. She is ambulatory, good eye contact, neck is supple, no anterior posterior supraclavicular nodes, her HEENT exam is otherwise normal, good eye contact, mild discomfort, with CVA discomfort on the left. Heart rate and rhythm is regular no murmur, PMI left chest, her abdomen is softdiscomfort, and her extremities are nonswollen nontender, neurologic exam symmetric and intact, andher psychiatric evaluation is relative to the chief [...] Impression and Plan Diagnosis Back pain (PNED [id number], Reason For Visit, Emergency medicine, Medical) Left flank pain (DEA85-BA R10.9, Discharge, Medical) Plan Disposition: Patient care transitioned to: Time: 03/20/2024 08:00:00, Abner Harvey MD, Change of shift.. DISCHARGE INFORMATION: Discharge Disposition: Home Discharge Location: Home PATIENT EDUCATION INFORMATION Instructions: Bacterial Vaginosis, Uuog-og-Zlit; Acute Back Pain, Adult Follow-Up: With: Address: When: Follow up with primary care provider Within 3 to 5 days Comments: Reviewed discharge care instruction. Continue with therapy as outlined by Dr. Harvey. Take your medication as (more content not included)...[facility] - Physicianon [id number] Note - PhysicianPatient: LIA DESAI Age: 23 years Sex: FEMALE [...] left low back pain, left side pain, leftparaspinous pain. Had been seen by previous ER [...] her on metronidazole gel suppository. Patient had reportedprevious BV in the past. No specific ongoing [...] reactions were documented.. Medications: (Selected) Prescriptions Prescribed [place] Saline Mist 0.65% nasal spray: 2 spray(s), !-Nasal, QID, for 7 day(s), 1 EA, 0 Refill(s). Past Medical/ Family/ Social History Medical history: Resolved Disease caused by 2019 novel coronavirus ([id number]): Onset on 11/23/2020 at 20 years. Resolved. Comments: 11/23/2020 CDT 16:07 CDT - SYSTEM Problem added by Rule (IC_COVID19_AUTO_PROBLEM) following 2019 Novel Coronavirus (CoVID-19), MILY L from Nasopharyngeal Swab collected on 22-NOV-2020 16:44:00 EDT tested positive for COVID-19. no history ([id number]): Resolved. Contact dermatitis (52897338): Resolved. Pharyngitis (1221422068): Resolved. Cough (42376678): Resolved.. Surgical history: Tonsillectomy and adenoidectomy (895955853).. Family history: No family history items have [...] marijuana about 4 hits/day - 03/07/2022 14:36 Chloé Aguilera RN 04/15/2023 Substance use: Current Type: Marijuana [...] Pulse Rate 71 bpm (more content not included)...[facility] - PhysicianPatient: LIA DESAI Age: 23 years Sex: FEMALE [...] to the emergency room. She has not hadany right flank pain she has not had [...] with discomfort to the left CVA, with norash noted there. She is ambulatory, good eye contact, neck is supple, no anterior posterior supraclavicular nodes, her HEENT exam is otherwise normal, good eye contact, mild discomfort, with CVA discomfort on the left. Heart rate and rhythm is regular no murmur, PMI left chest, her abdomen is softdiscomfort, and her extremities are nonswollen nontender, neurologic exam symmetric and intact, andher psychiatric evaluation is relative to the chief [...] Impression and Plan Diagnosis Back pain (PNED [id number], Reason For Visit, Emergency medicine, Medical) Left flank pain (QMR84-KX R10.9, Discharge, Medical) Plan Disposition: Patient care transitioned to: Time: 03/20/2024 08:00:00, Abner Harvey MD, Change of shift.. [Electronically Signed on: 03/20/2024 07:33 EST] Oneil Littlejohn DO [Verified on: 03/20/2024 07:33 EST] [facility]john [facility]Nursingon [id number] Note-NursingPT. C/O back pain that started throughout the night and into this morning. PT. states that she wokeup around 0545. Pt. does have urinary frequency. Pt. rates pain 7/10. Pt. is A&OX . PT. has a steady gait. [facility] CenterED Patient Summaryon [id number] Patient [facility] - Emergency Department [address] [place] [address] PATIENT DISCHARGE INSTRUCTIONS Patient Information Name: LIA DESAI Age: 23 Years Date of : 2000 Reason For Visit: Back pain; LOW BACK PAIN Arrival Time: 03/20/2024 06:28:58 Primary Care Physician: Provider, Unlisted Attending Physician: Oneil Littlejohn DO Comment: Visit Diagnosis: Diagnoses This Visit Acute abdominal pain in left flank (R10.9) Acute left-sided back pain (M54.9) Back pain ([id number]) Bacterial vaginosis (N76.0) Left flank pain (R10.9) Other specified bacterial agents as the cause of diseases classified elsewhere (B96.89) The Pharmacy at [facility] is open Saturday through Saturday from 9A to 6P and Saturday and Saturday from 9A to 5P Prescription Information: If you have been given a prescription for narcotics, seek immediate medical attention if you have any difficulty breathing or any sudden status changes such as confusion andsleepiness. If you or anyone you know is experiencing suicidal thoughts, mental health, alcohol and/or drug addiction problems; contact the [facility] 29/10 Crisis Hotline -Text 5XBJG gy 262664. If you received any narcotics, sedation, or [...] and treatment you received today in the [facility] Emergency Department were for an urgent problem and are not intended as complete care. It is important for you to follow up with a doctor, nurse practitioner, or physician?s podiatrist assistant for ongoing care. If your symptoms become worse or you donot improve as expected and you are unable [...] so we can reach you if necessary. [facility] Emergency Department has provided you with a complete list of medications post discharge. Please inform your pharmacy manager/provider of your visit and for further instruction on these medications. Any specific questions regarding your chronic medications and dosages should be discussed with your primary care physician(s) and/or pharmacist. New Medications [facility], [address], [place] [id number], [phone] metroNIDAZOLE topical (metroNIDAZOLE 0.75% vaginal gel with applicator) 1 jamel Vaginal once. Refills: 0. Additional medications on your home medication list not specifically addressed. Please contact the ordering physician if you have questions about these medications. sodium chloride nasal (M[place] Saline Mist 0.65% nasal spray) 2 spray(s) [...] Education Bacterial Vaginosis (Inser (more content not included)...NormalKnox Community HospitalLipaseon 03-20-2024 Lipase Level27.0 IU/DEpbsvy04.0-51.0[facility] HospitalComment on above:Performed By: #### [id number], [id number], 4796552, [id number] #### [facility] (DEFAULT) [address] [place] [address] 82782Mevzhhfqu Test Urine 03-20-2024U PregNegativeNormal [facility] HospitalComment on above:Performed By: #### [id number], [id number], [id number], [id number] ####[facility] (DEFAULT)[address] [place] [address] 69191D Preg Internal ControlPassNoSt. Francis Hospital HospitalComment on above:Performed By: #### [id number], [id number], [id number], [id number] ####[facility] (DEFAULT)[address] [place] [address] 75407Thrkoo Panel 91-68-0895Plygtc Internal ControlPassNoSt. Francis Hospital HospitalComment on above:Performed By: #### [id number], [id number], 5242383973, [id number] ####[facility] (DEFAULT)[address] [place] [address] 99943I Amph Scr NegativeNormUC Medical Center HospitalComment on above:Performed By: #### [id number], [id number], [id number], [id number] ####[facility] (DEFAULT)[address] [place] [address] 90178U Deirdre ScrNegativeSCCI Hospital Lima HospitalComment on above:Performed By: #### [id number], 296550734, [id number], [id number] ####[facility] (DEFAULT)[address] [place] [address] 28239E Benzodia ScrNegativeSCCI Hospital Lima HospitalComment on above:Performed By: #### [id number], [id number], [id number], [id number] ####[facility] (DEFAULT)[address] [place] [address] 81950A Cannab ScrnPositiveSCCI Hospital Lima HospitalComment on above:Performed By: #### [id number], [id number], [id number], [id number] ####[facility] (DEFAULT)[address] [place] [address] 01468Q Cocaine ScrNegativeNoSt. Francis Hospital HospitalComment on above:Performed By: #### [id number], [id number], 1484172429, [id number] ####[facility] (DEFAULT)[address] [place] [address] 59948B Methadone ScrNegativeSCCI Hospital Lima Hospital Comment on above:Performed By: #### [id number], [id number], [id number], [id number] ####[facility] (DEFAULT)[address] [place] [address] 82503Y Methamp ScrnNegativeNoSt. Francis Hospital HospitalComment on above:Performed By: #### [id number], 729837723, 5279807429, [id number] ####[facility] (DEFAULT)[address] [place] [address] 49195X Opiate ScrNegativeNoSt. Francis Hospital HospitalComment on above:Performed By: #### [id number], 816761585, [id number], [id number] ####[facility] (DEFAULT)[address] [place] [address] 43514U Oxycod ScrNegativeNoSt. Francis Hospital HospitalComment on above:Performed By: #### [id number], [id number], [id number], [id number] ####[facility] (DEFAULT)[address] [place] [address] 31784L Phencyclidine ScrNegativeNoSt. Francis Hospital Hospital Comment on above:Performed By: #### [id number], [id number], [id number], [id number] ####[facility] (DEFAULT)[address] [place] [address] 65318S Tricyclic Antidepress ScrNegativeNormalChildren'S Hospital For Rehabilitation HospitalComment on above:Result Comment: Results are to be used only for medical [...] PPX Propoxyphene (Norpropoxyphene): 300 ng/mL THC Cannabinoids (18-inl-3-carboxy- -THC): 50 ng/mL TCA Tricyclic-Antidepressants (Desipramine): 300 ng/mLPerformed By: #### [id number], [id number], [id number], [id number] ####[facility] (DEFAULT)[address] [place], [place] [address] Rmksq5tq 20-21-2128OG BacteriaRareNormal [facility] HospitalComment on above:Order Comment: Urinalysis Microscopic order added on by ReachLocal Expert Rules system.Performed By: #### [id number], 893255464, [id number], [id number] ####[facility] (DEFAULT)[address] [place] [address] Comment.Clue Cells SeenToledo HospitalComment on above:Order Comment: Urinalysis Microscopic order added on by ReachLocal Expert Rules system.Performed By: #### [id number], 138673748, [id number], [id number] ####[facility] (DEFAULT)[address] [place], [place] [address]UA Mucous TraceNormFulton County Health CenterComment on above:Order Comment: Urinalysis Microscopic order added on by ReachLocal Expert Rules system.Performed By: #### [id number], [id number], [id number], [id number] ####[facility] (DEFAULT)[address] [place], [place] [address]UA RBC>50NormalMagruder HospitalComment on above:Order Comment: Urinalysis Microscopic order added on by ReachLocal Expert Rules system.Performed By: #### [id number], 857866891, [id number], [id number] ####[facility] (DEFAULT)[address] [place], [place] [address]UA Squam EpiModerateToledo HospitalComment on above:Order Comment: Urinalysis Microscopic order added on by ReachLocal Expert Rules system.Performed By: #### [id number], [id number], [id number], [id number] ####[facility] (DEFAULT)[address] [place], [place] [address]UA WBC5-10T[facility] HospitalComment on above:Order Comment: Urinalysis Microscopic order added on by ReachLocal Expert Rules system.Performed By: #### [id number], [id number], [id number], [id number] ####[facility] (DEFAULT)[address] [place], [place] [address]UA w Culture if Ind Standardon 94-64-7304Cdzpq (U)[facility] Comment on above:Performed By: #### [id number], [id number], [id number], [id number] ####[facility] (DEFAULT)[address] [place], [place] [address]Culture? IndicatedInvalid Interpretation [facility]itan Medical CenterComment on above:Result Comment: Result created by rule GL_MAGR_ADD_UA_CULT Result created by rule GL_MAGR_ADD_UA_CULT Result created by rule GL_MAGR_ADD_UA_CULT1 Result created by rule GL_MAGR_ADD_UA_CULTPerformed By: #### [id number], [id number], [id number], [id number] ####[facility] (DEFAULT)[address] [place], [place] [address]Glucose (U) [Mass/Vol]NegativeToledo HospitalComment on above: Performed By: #### [id number], 753493260, 8135391073, [id number] ####[facility] (DEFAULT)[address] [place] [address] 68881Wzoqfeu Ql (U)Negative NormalChildren'S Hospital For Rehabilitation HospitalComment on above:Performed By: #### [id number], 468611734, [id number], [id number] ####[facility] (DEFAULT)[address] [place] [address] 09394Zuyph?IndicatedInvalid Interpretation CodeKnox Community Hospital Comment on above:Result Comment: Result created by rule GL_MAGR_ADD_UA_MICRO Performed By: #### [id number], 899353987, [id number], [id number] ####[facility] (DEFAULT)[address] [place] [address] 50615CY BilirubinSMALL AbnormalChildren'S Hospital For Rehabilitation HospitalComment on above:Performed By: #### [id number], 834884057, [id number], [id number] ####[facility] (DEFAULT)[address] [place] [address] 26731KI BloodLARGEAbnormalNEGATIVEChildren'S Hospital For Rehabilitation Hospital Comment on above:Performed By: #### [id number], [id number], [id number], [id number] ####[facility] (DEFAULT)[address] [place] [address] 63727LQ Clarity SL CLOUDYAbnormalCLEARMaupper valley medical center HospitalComment on above:Performed By: #### [id number], 558340283, 8704420927, [id number] ####[facility] (DEFAULT)[address] [place] [address] 10215SQ Leuk EstNegativeNormalNEGATIVEChildren'S Hospital For Rehabilitation HospitalComment on above:Performed By: #### [id number], [id number], [id number], [id number] ####[facility] (DEFAULT)[address] [place] [address] 41038ME NitriteNegativeNormalNEGATIVEChildren'S Hospital For Rehabilitation HospitalComment on above:Performed By: #### [id number], 593802084, [id number], [id number] ####[facility] (DEFAULT)[address] [place] [address] 89908KP pH6.2Ywrqyf2-3Haijpzfa HospitalComment on above:Performed By: #### [id number], 547478064, [id number], [id number] ####[facility] (DEFAULT)[address] [place] [address] 81985WE Rsmxgnp50HjvnuexsEODUUFGVLdxumuer HospitalComment on above:Performed By: #### [id number], [id number], [id number], [id number] ####[facility] (DEFAULT)[address] [place] [address] 75624HM Spec Grav>=1.030Normal 1.001-1.035[facility] HospitalComment on above:Performed By: #### [id number], 872607139, [id number], [id number] ####[facility] (DEFAULT)[address] [place] [address] 18832OS Urobilinogen0.2 mg/dLNormal0.2-1.0[facility] HospitalComment on above:Performed By: #### [id number], 518389570, [id number], [id number] ####[facility] (DEFAULT)[address] [place] [address] 82993Kxwfe SourceClean CatchNoSt. Francis Hospital HospitalComment on above:Performed By: #### [id number], 085459529, [id number], [id number] ####[facility] (DEFAULT)[address] [place] [address] 51492Rqseqwhwte UANormal [facility] HospitalComment on above:Performed By: #### [id number], [id number], [id number], [id number] ####[facility] (DEFAULT)[address] [place] [address] 21588Euqcxb Summaryon 02-42-0124Miznui SummaryMLBase 64 ZxictfteKZb6oEr+PGhlYWQ+UQ6ECFYqN92ztPAwuX6bT4LPYYoJQqftHUPYCDyUYwZcaeZlGL1izDFi ZXJu [file] YXB (more content not included)...[facility] Throaton 01-30-2024 ThroatOrdered by Discern. Normal throat jonny isolated No pathogens isolatedNoSelect Medical OhioHealth Rehabilitation HospitalComment on above:Performed By: #### [id number], [id number], [id number] #### [facility] (DEFAULT) [address] [place], [place] [address]ED Clinical Summaryon [id number] Clinical Summary [facility] ? Urgent Care [address] [place], [place] [id number] Clinical Summary PERSON INFORMATION Name: LIA DESAI Age: 23 Years Sex: FEMALE : 2000 MRN: Acct#: Visit Reason: Body aches; UC - Sore Throat; Earache; Cough; Throat pain - Adult; CONGESTION, BRYAN EAR PAIN, SORE THROAT, BODY ACHES Arrival: 01/28/2024 11:07:11 Discharge: 01/28/2024 12:39:00 LOS: 000 01:32 Check In: 01/28/2024 11:07:11 Checkout: 01/28/2024 12:39:00 Address: [address] [place] [address] PCP: ROBERT MARRERO PROVIDER INFORMATION Provider Role Assigned Unassigned Errol Ortega ED PA 01/28/2024 11:10:09 Corrina Grant DENTAL BILLING SPECIALIST Nurse 01/28/2024 11:19:17 VITALS INFORMATION Vital Sign [...] With: Address: When: ROBERT MARRERO [address] [place] [address] Business (1) Within 5 to 7 days Comments: Viral upper respiratory illness. mother. Contagious 72 hours from onset Strep, Covid, Flu negative. Vitals good today. Begin Mucinex 600mg 1 po BID x 7 days. Begin Saline nasal spray Consider humidifier or Vics salve. Return if worse in any way. DIAGNOSIS: Acute URI Patient Understands: Yes - Patient/family/caregiver verbalizes understanding of instructions given Comment:[facility] HospitalED Patient Summary [id number] Patient Summary [facility] ? Urgent Care [address] [place] [address] PATIENT DISCHARGE INSTRUCTIONS Patient Information Name: LIA DESAI Age: 23 Years Date of : 2000 Reason For Visit: Body aches; UC - Sore Throat; Earache; Cough; Throat pain - Adult; CONGESTION, BRYAN EAR PAIN, SORE THROAT, BODY ACHES Arrival Time: 01/28/2024 11:07:11 Primary Care Physician: ROBERT MARRERO Attending Physician: Errol Ortega Comment: Patient Education With: Address: When: ROBERT MARRERO [address] [place] [address] Business (1) Within 5 to [...] infection of the nose, throat, and upper airpassages that lead to the lungs. The most [...] to help relieve symptoms, such as: ? Vhrt-lwb-mvhpdyg cold medicines. ? Cough suppressants. Coughing is [...] other clear broths. General instructions ? Take fgkh-qfz-jsdewkp and prescription medicines only as told by your health care provider. Theseinclude cold medicines, fever reducers, and cough suppressants. [...] seconds. If soap and water are not available,use hand drying machine back tender. ? Avoid touching your mouth, face, eyes, or nose. ? Cough or sneeze into a tissue or your sleeve or elbow instead of into your hand or into the air. Contact a health care provider if: ? Y (more content not included)...[facility]edo HospitalPONJ Rapid CoV-2 (COVID-19) Antigen/ Flu A&Bon 70-46-3419Dmugidyhf A POCTNegativeNormalNegative [facility] HospitalComment on above:Performed By: #### [id number], [id number], [id number] #### [facility] (DEFAULT) [address] [place] [address] 72073Ifgynwcmp B POCTNegativeNoCleveland Clinic [facility] Comment on above:Performed By: #### [id number], [id number], [id number] #### [facility] (DEFAULT) [address] [place] [address] 85136FXUW-VyE-0 (COVID-19) RNA MILY+probe Ql (Unsp spec)Not detectedNoSelect Medical OhioHealth Rehabilitation HospitalComment on above:Performed By: #### [id number], [id number], [id number] #### [facility] (DEFAULT) [address] [place] [address] 31311Ohsil Aon 99-30-5443Ohvwr procedure controlPassNormOhioHealth Pickerington Methodist HospitalComment on above:Performed By: #### [id number], [id number], [id number] #### [facility] (DEFAULT) [address], [place] [address]NwhndxqvsaxfcFairlawn Rehabilitation Hospital Comment on above:Performed By: #### [id number], [id number], [id number] #### [facility] (DEFAULT) [address] [place], [place] [address]Lutdwl Care Note- Provideron 42-23-7915Nmeurx Care Note- ProviderPatient: LIA DESAI Age: 23 years Sex: FEMALE [...] is now gone. Been associate with a chestcough, shortness of breath or wheezing. She denies [...] Resolved Disease caused by 2019 novel coronavirus ([id number]): Onset on 11/23/2020 at 20 years. Resolved. Comments: 11/23/2020 CDT 16:07 CDT - SYSTEM Problem added by Rule (IC_COVID19_AUTO_PROBLEM) following 2019 Novel Coronavirus (CoVID-19), MILY L from Nasopharyngeal Swab collected on 22-NOV-2020 16:44:00 EDT tested positive for COVID-19. no history (738809777): Resolved. Contact dermatitis (25355205): Resolved. Pharyngitis (8554955465): Resolved. Cough (55411675): Resolved.. Surgical history: Tonsillectomy and adenoidectomy (780979149).. Family history: No family history items have [...] petechiae, no uvula s (more content not included)...[facility] 92-89-5448ZfimynLifePoint [facility] ? Urgent Care [address] [place] [address] PATIENT DISCHARGE INSTRUCTIONS Patient Information Name: LIA DESAI Age: 23 Years Date of : 2000 Reason For Visit: Body aches; UC - Sore Throat; Earache; Cough; Throat pain - Adult; CONGESTION, BRYAN EAR PAIN, SORE THROAT, BODY ACHES Arrival Time: 01/28/2024 11:07:11 Primary Care Physician: ROBERT MARRERO Attending Physician: Errol Ortega Comment: Visit Diagnosis: Diagnoses This Visit Acute URI (J06.9) Body aches ([id number]) Cough (R33416AO-P0P2-4J24-92J9-687H2KF6WM5T) Earache (I576796P-3G2G-1987-43N2-31LF16E2MZMA) Throat pain - Adult (1558I429-4N4G-9A55-F2D6-W7870SL9MA8O) UC - Sore Throat (J865N0N2-0JJ4-2076-407D-B75VSE59XH7I) If you received any narcotics, sedation, or [...] legal documents With: Address: When: ROBERT MARRERO [address] [place] [address] Business (1) Within 5 to 7 days Comments: Viral upper respiratory illness. mother. Contagious 72 hours from onset Strep, Covid, Flu negative. Vitals good today. Begin Mucinex 600mg 1 po BID x 7 days. Begin Saline nasal spray Consider humidifier or Vics salve. Return if worse in any way. Medication Information: The exam and treatment you received today in the [facility] were for an urgent problem and are not intended as complete care. It is important for you to follow up with a doctor, nurse practitioner, or physician?s podiatrist assistant for ongoing care. If your symptoms [...] so we can reach you if necessary. [facility] has provided you with a complete list of medications post discharge. Please inform your pharmacy manager/provider of your visit and for further instruction on these medications. Any specific questions regarding your chronic medications and dosages should be discussed with your primary care physician(s) and/or pharmacist. New Medications [facility] [address], [address], [place] [id number], [phone] guaiFENesin (Mucinex 600 mg oral tablet, extended release) 1 tab(s) Oral (given by mouth) Every 12 hours scheduled time as needed congestion for 10 Days. Refills: 0. sodium chloride nasal ([place] Saline Mist 0.65% nasal spray) 2 spray(s) [...] infection of the nose, throat, and upper airpassages that lead to the lungs. The most [...] young or very old. (more content not included)...[facility] Hospital[facility] CBC WITH AUTO DIFFon 62-38-4304KUICGEUMI ABSOLUTE AUTO0.1NOMS HealthcareBasophils/100 WBC (Bld)0.5 % 0.2 - 2.0 %[facility] HealthcareEosinophils/100 WBC (Bld)0.8 %Low0.9 - 7.0 %[facility] HealthcareErythrocyte distribution width (RBC) [Ratio]13.3 %11.0 - 15.0 %[facility] HealthcareHematocrit (Bld) [Volume fraction]31.5 %Low36.0 - 48.0 %[facility] HealthcareHemoglobin (Bld) [Mass/Vol]10.0 g/dLLow12.0 - 16.0 g/dLMercy Hospital South, formerly [facility] IMMATURE GRANULOCYTES ABS AUTO0.19HighNOMosaic Life Care at St. JosephImmature granulocytes/100 WBC (Bld)1.3 %High0.0 - 0.5 %[facility] HealthcareInterpretation and review of laboratory resultsAbnormalNOWY HealthcareLYMPHOCYTES ABSOLUTE AUTO4.0HighNOMS HealthcareLymphocytes/100 WBC (Bld)27.7 %20.5 - 60.0 %Centerpoint Medical CenterH (RBC) [Entitic mass]26.5 pgLow26.7 - 34.[address] pgNOMosaic Life Care [address] JosephMCHC (RBC) [Mass/Vol]31.7 g/dL29.9 - 35.2 g/dLMercy Hospital South, formerly St. Anthony's Medical CenterMCV (RBC) [Entitic vol]83.6 fL81.0 - 99.0 fL [facility] HealthcareMONOCYTES ABSOLUTE AUTO1.4HighNOWY HealthcareMonocytes/100 WBC (Bld)9.6 %1.7 - 12.0 %NOM HealthcareNEUTROPHILS ABSOLUTE AUTO8.6HighNOWY HealthcareNeutrophils/100 WBC (Bld)60.1 %43.0 - 75.0 %[facility] HealthcarePlatelet mean volume (Bld) [Entitic vol]10.2 fL9.5 - 13.[address] fLMercy Hospital South, formerly [address] Anthony's Medical CenterTB EO #0.1 NOMSelect Specialty HospitalTB NMX904QHQGCapital Region Medical Center RBC3.77LowNOCapital Region Medical Center WBC14.3 HighFormerly [facility] CBC WITH PLATELET NO DIFFERENTIALon 89-59-4872Kfzidyepceu distribution width (RBC) [Ratio]12.9 %11.0 - 15.0 %[facility] HealthcareHematocrit (Bld) [Volume fraction]36.4 %36.0 - 48.0 %[facility] HealthcareHemoglobin (Bld) [Mass/Vol]11.8 g/dLLow12.0 - 16.0 g/dLMercy Hospital South, formerly [facility] Interpretation and review of laboratory resultsAbnormalMadison Medical Center (RBC) [Entitic mass]26.9 pg26.7 - 34.0 pgCenterpoint Medical CenterHC (RBC) [Mass/Vol]32.4 g/dL 29.9 - 35.2 g/dLCenterpoint Medical CenterV (RBC) [Entitic vol]82.9 fL81.0 - 99.[address] fLMercy Hospital South, formerly [address] Anthony's Medical CenterPlatelet mean volume (Bld) [Entitic vol]10.1 fL9.5 - 13.5 fLNortheast Missouri Rural Health Network MKT637LPQZCapital Region Medical Center RBC4.39NOCapital Region Medical Center WBC14.6HLehigh Valley Hospital - Schuylkill South Jackson StreetYNBeaufort Memorial HospitalUS OB GROWTHon 83-24-8451LmcGreenwald, [place] [address] Ultrasound Report Signed Patient: LIA DESAI MR#: [id number] : 2000 Acct:[id number] Age/Sex: 23 / F ADM Date: 11/25/23 Loc: [facility] Attending Dr: Robert Marrero D.O. Ordering Physician: Robert Marrero D.O. Date of Service: 11/25/23 Procedure(s): OB growth Accession Number(s): [id number] cc: Robert Marrero D.O.; Physician,Non-Staff Nena The [address] [address] Patient Name: LIA DESAI MRN: [id number] date: 2000 Sex: F Assigned Patient Location: [facility] Current Patient Location: [facility] Accession/Order Number: [id number] Exam Date: 11/25/2023 11:30 Report Date: 11/25/2023 16:36 At the request of: ROBERT MARRERO Procedure: US OB growth EXAMINATION: US [...] Normal interval growth Electronically authenticated by: CHRISTIAN HOPE Date: 11/25/2023 16:36 Dictated By: Christian Hope M.D. Signed By: 11/25/231637 DD/ 35 TD/TT: Data Entry Operator:BRODYHRadiology, Radiologist, - 11/25/2023 [place] [address] Ultrasound Report Signed Patient: LIA DESAI MR#: [id number] : 2000 Acct:[id number] Age/Sex: 23 / F ADM Date: 11/25/23 Loc: [facility] Attending Dr: Robert Marrero D.O. Ordering Physician: Robert Marrero D.O. Date of Service: 11/25/23 Procedure(s): US OB growth Accession Number(s): [id number] cc: Robert Marrero D.O.; Physician,Non-Staff MYohana The [place] [phone] Patient Name: LIA DESAI MRN: [id number] date: 2000 Sex: F Assigned Patient Location: [facility] Current Patient Location: [facility] Accession/Order Number: [id number] Exam Date: 11/25/2023 11:30 Report Date: 11/25/2023 16:36 At the request of: ROBERT MARRERO Procedure: US OB growth EXAMINATION: US [...] Normal interval growth Electronically authenticated by: CHRISTIAN HOPE Date: 11/25/2023 16:36 Dictated By: Christian Hope M.D. Signed By: 11/25/231637 DD/ 35 TD/TT: Data Entry Operator: AHSAN HealthcareRadiology Study observation (narrative)[facility]ITALKaci HealthcareUS OB GROWTHOrdered By: Radiologist Radiology on 39-85-8975UPWX Healthcare Work Phone: US OB GROWTHon [phone], [place] [address] Ultrasound Report Signed Patient: LIA DESAI MR#: [id number] : 2000 Acct:[id number] Age/Sex: 22 / F ADM Date: 10/01/23 Loc: [facility] Attending Dr: Robert Marrero D.O. Ordering Physician: Robert Marrero D.O. Date of Service: 10/01/23 Procedure(s): US OB growth Accession Number(s): [id number] cc: Robert Marrero D.O.; Physician,Non-Staff Nena The [place] [address] Patient Name: LIA DESAI MRN: [facility]:[id number] date: 2000 Sex: F Assigned Patient Location: [facility] Current Patient Location: [facility] Accession/Order Number: [id number] Exam Date: 10/01/2023 10:42 Report Date: 10/01/2023 11:17 At the request of: ROBERT MARRERO Procedure: US OB growth EXAMINATION: US [...] Normal interval growth Electronically authenticated by: CHRISTIAN HOPE Date: 10/01/2023 11:17 Dictated By: Christian Hope M.D. Signed By: 10/01/23 1120 DD/ 1117 TD/TT: Data Entry Operator:ADELAIDAadiology, Radiologist, - 10/01/2023 [place] [address] Ultrasound Report Signed Patient: LIA DESAI MR#: [id number] : 2000 Acct:[id number] Age/Sex: 22 / F ADM Date: 10/01/23 Loc: [facility] Attending Dr: Robert Marrero D.O. Ordering Physician: Robert Marrero D.O. Date of Service: 10/01/23 Procedure(s): US OB growth Accession Number(s): [id number] cc: Robert Marrero D.O.; Physician,Non-Staff Nena [place] [address] Patient Name: LIA DESAI MRN: [id number] date: 2000 Sex: F Assigned Patient Location: [facility] Current Patient Location: [facility] Accession/Order Number: [id number] Exam Date: 10/01/2023 10:42 Report Date: 10/01/2023 11:17 At the request of: ROBERT MARRERO Procedure: US OB growth EXAMINATION: US [...] Normal interval growth Electronically authenticated by: CHRISTIAN HOPE Date: 10/01/2023 11:17 Dictated By: Christian Hope M.D. Signed By: 10/01/23 1120 DD/ 1117 TD/TT: Data Entry Operator: AHSAN HealthcareRadiology Study observation (narrative)AHSAN MorelandUS OB GROWTHOrdered By: Radiologist Radiology on 25-55-4269DRJG Healthcare Work Phone: US OB CERVICAL LENGTHon 59-95-4785LdtGreenwald, [place] [address] Ultrasound Report Signed Patient: LIA DESAI MR#: [id number] : 2000 Acct:[id number] Age/Sex: 22 / F ADM Date: Loc: [facility] 254-[address]: Robert Marrero D.O. Ordering Physician: Robert Marrero D.O. Date of Service: 09/10/23 Procedure(s): US OB cervical length Accession Number(s): [id number] cc: Robert Marrero D.O.; Physician,Non-Staff Nena [place] [address] Patient Name: LIA DESAI MRN: [id number] date: 2000 Sex: F Assigned Patient Location: [facility] Current Patient Location: [facility] Accession/Order Number: [id number] Exam Date: 09/10/2023 13:54 Report Date: 09/10/2023 15:16 At the request of: ROBERT MARRERO Procedure: US OB cervical length EXAMINATION: [...] 3.6 cm in length. Electronically authenticated by: ANGELA SCOTT Date: 09/10/2023 15:16 Dictated By: Angela Scott M.D. Signed By: 09/10/231518 DD/ 15 TD/TT: Data Entry Operator:ADELAIDAadiologdenia Radiologist, - 09/10/2023 [place] [address] Ultrasound Report Signed Patient: LIA DESAI MR#: [id number] : 2000 Acct:[id number] Age/Sex: 22 / F ADM Date: Loc: [facility] 254-[address]: Robert Marrero D.O. Ordering Physician: Robert Marrero D.O. Date of Service: 09/10/23 Procedure(s): US OB cervical length Accession Number(s): [id number] cc: Robert Marrero D.O.; Physician,Non-Staff Nena The [place] [address] Patient Name: LIA DESAI MRN: [id number] date: 2000 Sex: F Assigned Patient Location: [facility] Current Patient Location: [facility] Accession/Order Number: [id number] Exam Date: 09/10/2023 13:54 Report Date: 09/10/2023 15:16 At the request of: ROBERT MARRERO Procedure: US OB cervical length EXAMINATION: [...] 3.6 cm in length. Electronically authenticated by: ANGELA SCOTT Date: 09/10/2023 15:16 Dictated By: Angela Scott M.D. Signed By: 09/10/231518 DD/ 1516 TD/TT: Data Entry Operator: AHSAN HealthcareRadiology Study observation (narrative)AHSAN HealthcareUS OB CERVICAL LENGTHOrdered By: Radiologist Radiology on 73-90-8312VHFK Healthcare Work Phone: US for multiple gestation limitedon 57-47-0319L[address] [address] Ultrasound Report Signed Patient: LIA DESAI MR#: [id number] : 2000 Acct:[id number] Age/Sex: 22 / F ADM Date: 08/28/23 Loc: [facility] Attending Dr: Robert Marrero D.O. Ordering Physician: Robert Marrero D.O. Date of Service: 08/28/23 Procedure(s): US OB follow up Accession Number(s): [id number] cc: Robert Marrero D.O.; Physician,Non-Staff Nena [address] [address] Patient Name: LIA DESAI MRN: [id number] date: 2000 Sex: F Assigned Patient Location: [facility] Current Patient Location: [facility] Accession/Order Number: [id number] Exam Date: 08/28/2023 08:34 Report Date: 08/28/2023 10:11 At the request of: ROBERT MARRERO Procedure: US OB follow up EXAMINATION: [...] Normal observed anatomy Electronically authenticated by: CHRISTIAN HOPE Date: 08/28/2023 10:11 Dictated By: Christian Hope M.D. Signed By: 08/28/23 1014 DD/ 1011 TD/TT: Data Entry Operator:ADELAIDAadiologFior loza MD - 08/28/[address] [address] Ultrasound Report Signed Patient: LIA DESAI MR#: [id number] : 2000 Acct:[id number] Age/Sex: 22 / F ADM Date: 08/28/23 Loc: [facility] Attending Dr: Robert Marrero D.O. Ordering Physician: Robert Marrero D.O. Date of Service: 08/28/23 Procedure(s): US OB follow up Accession Number(s): [id number] cc: Robert Marrero D.O.; Physician,Non-Staff Nena The [place] [phone] Patient Name: LIA DESAI MRN: [id number] date: 2000 Sex: F Assigned Patient Location: [facility] Current Patient Location: [facility] Accession/Order Number: [id number] Exam Date: 08/28/2023 08:34 Report Date: 08/28/2023 10:11 At the request of: ROBERT MARRERO Procedure: US OB follow up EXAMINATION: [...] Normal observed anatomy Electronically authenticated by: CHRISTIAN HOPE Date: 08/28/2023 10:11 Dictated By: Christian Hope M.D. Signed By: 08/28/23 1014 DD/ 1011 TD/TT: Data Entry Operator: AHSAN HealthcareRadiology Study observation (narrative)[facility] HealthcareUS for multiple gestation limitedOrdered By: Radiologist Radiology on 85-82-0036AMUJ [employer] [facility] Work Phone: no Panel InformationOrdered By: Radiologist Radiology on 73-08-6815CKPR Healthcare Work Phone: No Panel Informationon 63-82-5203Gkuclpaoy Study observation (narrative)AHSAN MorelandUS OB ANATOMYon 74-23-0292Z[address] [address] Ultrasound Report Signed Patient: LIA DESAI MR#: [id number] : 2000 Acct:[id number] Age/Sex: 22 / F ADM Date: 07/31/23 Loc: [facility] Attending Dr: Robert Marrero D.O. Ordering Physician: Robert Marrero D.O. Date of Service: 07/31/23 Procedure(s): US OB anatomy Accession Number(s): [id number] cc: Robert Marrero D.O.; Physician,Non-Staff Nena [address] [address] Patient Name: LIA DESAI MRN: [facility]:[id number] date: 2000 Sex: F Assigned Patient Location: [facility] Current Patient Location: [facility] Accession/Order Number: [id number] Exam Date: 07/31/2023 10:47 Report Date: 07/31/2023 12:29 At the request of: ROBERT MARRERO Procedure: US OB anatomy EXAMINATION: US [...] body habitus and position. Electronically authenticated by: ANGELA SCOTT Date: 07/31/2023 12:29 Dictated By: Angela Scott M.D. Signed By: 07/31/23 1232 DD/ 1229 TD/TT: Data Entry Operator:TBHRadiology, Radiologist, MD - 07/31/2023 [place] [address] Ultrasound Report Signed Patient: LIA DESAI MR#: [id number] : 2000 Acct:[id number] Age/Sex: 22 / F ADM Date: 07/31/23 Loc: [facility] Attending Dr: Robert Marrero D.O. Ordering Physician: Robert Marrero D.O. Date of Service: 07/31/23 Procedure(s): US OB anatomy Accession Number(s): [id number] cc: Robert Marrero D.O.; Physician,Non-Staff Nena The [address] [address] Patient Name: LIA DESAI MRN: [id number] date: 2000 Sex: F Assigned Patient Location: [facility] Current Patient Location: [facility] Accession/Order Number: [id number] Exam Date: 07/31/2023 10:47 Report Date: 07/31/2023 12:29 At the request of: ROBERT MARRERO Procedure: US OB anatomy EXAMINATION: US [...] body habitus and position. Electronically authenticated by: ANGELA SCOTT Date: 07/31/2023 12:29 Dictated By: Angela Scott M.D. Signed By: 07/31/23 1232 DD/ 1229 TD/TT: Data Entry Operator: AHSAN Alvarez OB CERVICAL LENGTHon 51-27-3505DpvGreen[place], [place] [address] Ultrasound Report Signed Patient: LIA DESAI MR#: [id number] : 2000 Acct:[id number] Age/Sex: 22 / F ADM Date: 07/31/23 Loc: [facility] Attending Dr: Robert Marrero D.O. Ordering Physician: Robert Marrero D.O. Date of Service: 07/31/23 Procedure(s): US OB cervical length Accession Number(s): [id number] cc: Robert Marrero D.O.; Physician,Non-Staff MYohana [place] [id number] Patient Name: LIA DESAI MRN: [id number] date: 2000 Sex: F Assigned Patient Location: [facility] Current Patient Location: [facility] Accession/Order Number: [id number] Exam Date: 07/31/2023 10:47 Report Date: 07/31/2023 12:29 At the request of: ROBERT MARRERO Procedure: US OB cervical length EXAMINATION: [...] body habitus and position. Electronically authenticated by: ANGELA SCOTT Date: 07/31/2023 12:29 Dictated By: Angela Scott M.D. Signed By: 07/31/23 1232 DD/ 1229 TD/TT: Data Entry Operator:TBHRadiology, Radiologist, MD - 07/31/2023 [place] [address] Ultrasound Report Signed Patient: LIA DESAI MR#: [id number] : 2000 Acct:[id number] Age/Sex: 22 / F ADM Date: 07/31/23 Loc: [facility] Attending Dr: Robert Marrero D.O. Ordering Physician: Robert Marrero D.O. Date of Service: 07/31/23 Procedure(s): US OB cervical length Accession Number(s): [id number] cc: Robert Marrero D.O.; Physician,Non-Staff Nena The [place] [address] Patient Name: LIA DESAI MRN: [id number] date: 2000 Sex: F Assigned Patient Location: [facility] Current Patient Location: [facility] Accession/Order Number: [id number] Exam Date: 07/31/2023 10:47 Report Date: 07/31/2023 12:29 At the request of: ROBERT MARRERO Procedure: US OB cervical length EXAMINATION: [...] body habitus and position. Electronically authenticated by: ANGELA SCOTT Date: 07/31/2023 12:29 Dictated By: Angela Scott M.D. Signed By: 07/31/23 1232 DD/ 1229 TD/TT: Data Entry Operator: AHSAN [facility] HospitalCytology Cervical or vaginal smear or scraping studyon 07-01-2023 N[facility] HealthcareALL CBC WITH AUTO DIFFon 46-77-2732DUIBKLZNN ABSOLUTE AUTO0.0NOMS HealthcareBasophils/100 WBC (Bld)0.3 %0.2 - 2.0 %[facility] HealthcareEosinophils/100 WBC (Bld)0.5 %Low0.9 - 7.0 %[facility] HealthcareErythrocyte distribution width (RBC) [Ratio]12.2 %11.0 - 15.0 %[facility] HealthcareHematocrit (Bld) [Volume fraction]38.6 %36.0 - 48.0 %[facility] HealthcareHemoglobin (Bld) [Mass/Vol]12.3 g/dL12.0 - 16.0 g/dLMercy Hospital South, formerly St. Anthony's Medical CenterIMMATURE GRANULOCYTES ABS AUTO0.02NOMS HealthcareImmature granulocytes/100 WBC (Bld)0.2 %0.0 - 0.5 %[facility] HealthcareInterpretation and review of laboratory resultsAbnormalNOWY HealthcareLYMPHOCYTES ABSOLUTE AUTO3.1 [facility]'s Medical CenterLymphocytes/100 WBC (Bld)32.8 %20.5 - 60.0 %[facility]point Medical CenterH (RBC) [Entitic mass]28.6 pg26.7 - 34.0 pgCenterpoint Medical CenterHC (RBC) [Mass/Vol] 31.9 g/dL29.9 - 35.2 g/dLCenterpoint Medical CenterV (RBC) [Entitic vol]89.8 fL81.0 - 99.[address]LMercy Hospital South[address] formerly [address] Anthony's Medical CenterMONOCYTES ABSOLUTE AUTO0.7NOWY HealthcareMonocytes/100 WBC (Bld)7.7 %1.7 - 12.0 %[facility] Medical CenterNEUTROPHILS ABSOLUTE AUTO5.4[facility] Neutrophils/100 WBC (Bld)58.5 %43.0 - 75.0 %[facility] Anthony's Medical CenterPlatelet mean volume (Bld) [Entitic vol]10.7 fL9.5 - 13.[address] fLMercy Hospital South, [address] Anthony's Medical CenterTB EO #0.1[facility] TB GJS329NIJT [facility] RBC4.30[facility] WBC9.3[facility] CLINISYNCNOWY HealthcareUS OB TRANSVAGINALon 50-12-6833LtuGreen[place], [place] [address] Ultrasound Report Signed Patient: Lia Desai MR#: [id number] : 2000 Acct:[id number] Age/Sex: 22 / F ADM Date: 05/02/23 Loc: [facility] Attending Dr: Robert Marrero D.O. Ordering Physician: Robert Marrero D.O. Date of Service: 05/02/23 Procedure(s): US OB transvaginal Accession Number(s): [id number] cc: Robert Marrero D.O.; Physician,Non-Staff Nena The [place] [phone] Patient Name: LIA DESAI MRN: [id number] date: 2000 Sex: F Assigned Patient Location: [facility] Current Patient Location: [facility] Accession/Order Number: [id number] Exam Date: 05/02/2023 12:36 Report Date: 05/02/2023 13:36 At the request of: ROBERT MARRERO Procedure: US OB transvaginal EXAMINATION: US OB transvaginal HISTORY: MISSED MENSES COMPARISON: No relevant comparison available. FINDINGS: Andre intrauterine gestation Gestational sac: 3.52 cm, 8 [...] weeks 1 day Electronically authenticated by: CHRISTIAN HOPE Date: 05/02/2023 13:36 Dictated By: Christian Hope M.D. Signed By: 05/02/23 1339 DD/ 35 TD/TT: Data Entry Operator:BRODYHRadiology, Radiologist, MD - 05/02/2023 [place] [address] Ultrasound Report Signed Patient: Lia Desai MR#: [id number] : 2000 Acct:[id number] Age/Sex: 22 / F ADM Date: 05/02/23 Loc: [facility] Attending Dr: Robert Marrero D.O. Ordering Physician: Robert Marrero D.O. Date of Service: 05/02/23 Procedure(s): US OB transvaginal Accession Number(s): [id number] cc: Robert Marrero D.O.; Physician,Non-Staff Nena The [place] [phone] Patient Name: LIA DESAI MRN: [id number] date: 2000 Sex: F Assigned Patient Location: [facility] Current Patient Location: [facility] Accession/Order Number: [id number] Exam Date: 05/02/2023 12:36 Report Date: 05/02/2023 13:36 At the request of: ROBERT MARRERO Procedure: US OB transvaginal EXAMINATION: US OB transvaginal HISTORY: MISSED MENSES COMPARISON: No relevant comparison available. FINDINGS: Andre intrauterine gestation Gestational sac: 3.52 cm, 8 [...] weeks 1 day Electronically authenticated by: CHRISTIAN HOPE Date: 05/02/2023 13:36 Dictated By: Christian Hope M.D. Signed By: 05/02/23 1339 DD/ 1336 TD/TT: Data Entry Operator: AHSAN HealthcareRadiology Study observation (narrative)[facility] HealthcareUS OB TRANSVAGINALOrdered By: Radiologist Radiology on 99-22-2436[facility] Work Phone: US PREG TVon 27-31-4228JS PREG TVEXAMINATION: US PREG TV HISTORY: Missed period COMPARISON: [...] Electronically authenticated by: CHRISTIAN HOPE Date: 2022-08-08 16:56[facility] SystemUS PELVIS AND TRANSVAGon 12-04-9037WN PELVIS AND TRANSVAG EXAMINATION: US PELVIS AND [...] Electronically authenticated by: ANGELA SCOTT Date: 2022-06-04 06:57[facility] SystemUS PREG TVon 40-67-7487MY PREG TVEXAMINATION: US PREG TV HISTORY: Uncertain viability of [...] Electronically authenticated by: CHRISTIAN HOPE Date: 2022-05-16 18:15NormalThe Hahira HospitalHEP B SURFACE ANTIGEN SCREENon 37-33-0065UTdDp ScreenNegative NormalNegativeThe [facility] on above:Performed By: #### HBSANS #### [facility] [address] [place] [address] Dr. Jeronimo MelgarHEPATITIS C VIRUS AB W/ REFLEX QUANTon 44-82-0787GHU AB<0.1Normal 0.0-0.9The [facility] on above:Performed By: #### HCVPCRR #### [facility] [address] [place] [address] Dr. Jeronimo MelgarInterpretation:CommentNormalThe [facility] on above:Result Comment: Negative Not infected with HCV, unless recent infection is suspected or other evidence exists to indicate HCV infection.Performed By: #### HCVPCRR #### [place] [address] Dr[address] Jeronimo MelgarHIV 1 AND 2 WITH REFLEXon 00-67-5592WDF Screen 4th Generation wRfxNon-ReactiveNormalNon ReactiveThe [facility] on above:Result Comment: HIV Negative HIV-1/HIV-2 antibodies and HIV-1 p24 antigen were NOT detected. There is no laboratory evidence of HIV infection.Performed By: #### HIV12 #### [place] [address] [address] Jeronimo MelgarRPJeannie QUANTon 40-45-1273Ihgxj Plasma Reagin, QuantNon-Reactive NormalNonRea<1:1[facility] on above:Result Comment: Please Note: This test does not meet current guidelines for screening and diagnosis of syphilis. This test is intended for following treatment response in patients being treated for syphilis infection. To screen for syphilis infection, a reflex cascade that includes both RPR and a treponema-specific assay should be utilized, such as Treponema pallidum (Syphilis) Screening [place] (452687) or Rapid Plasma Reagin (RPR) Test With Reflex to Quantitative RPR and Confirmatory Treponema pallidum Antibodies (942175).Performed By: #### RPRQ #### [facility] [address] [place] [address] Dr. Jeronimo Gan AB IGGon 65-87-1691Cechgdc Antibodies, IgG1.85 index NormalImmune >0.99The [facility] CenterComment on above:Result Comment: Non- immune <0.90 Equivocal 0.90 - 0.99 Immune >0.99Performed By: #### BOX #### [facility] [address] [place] [address] Dr. Jeronimo MelgarBOX TEST SENT OUTon 02-61-3004LCCH TO REF LAB04/19/2022NormalThKettering Health Main CampusComment on above:Performed By: #### BOX #### [facility] [address] [place] [address] Dr. Jeronimo PriceC AUTO DIFFon 85-87-8105KSKB #0.1 103/ulNormal0.0-0.1The [facility] CenterComment on above:Performed By: #### BOX #### [facility] [address] [place] [address] Dr. Jeronimo MelgarBasophils/100 WBC (Bld)0.5 %Normal0.2-2.0The [facility] Comment on above:Performed By: #### BOX #### [facility] [address] [place] [address] Dr. Jeronimo Scott #0.1 103/ulNormal0.0-0.7The [facility] CenterComcorewell health [facility] on above: Performed By: #### BOX #### [facility] [address] [place] [address] Dr. Jeronimo Parrishosinophils/100 WBC (Bld)0.7 %Critically low0.9-7.0The [facility] CenterComment on above:Performed By: #### BOX #### [facility] [address] [place] [address] Dr. Jeronimo Parrishrythrocyte distribution width (RBC) [Ratio]12.8 %Tvuoar19.0-15.0 The [facility] CenterComment on above:Performed By: #### BOX #### [facility] [address] [place] [address] Dr. Jeronimo MelgarHematocrit (Bld) [Volume fraction]43.7 %Mrddaq67.0-48.0The [facility] CenterComment on above:Performed By: #### BOX #### [facility] [address] [place] [address] Dr. Jeronimo MelgarHemoglobin (Bld) [Mass/Vol]13.1 g/nGHgakla64.0-16.0The [facility] HospitalComment on above:Performed By: #### BOX #### [facility] [address] [place] [address] Dr. Jeronimo Francis #0.02 10e3/ulNormal0.00-0.03The [facility] CenterComment on above:Performed By: #### BOX #### [facility] [address] [place] [address] Dr. Jeronimo Francis %0.2 %Normal0.0-0.5The [facility] CenterComment on above: Performed By: #### BOX #### [facility] [address] [place] [address] Dr. Jeronimo Almanza #2.6 103/ulNormal1.2-3.8The [facility] CenterComment on above:Performed By: #### BOX #### [facility] [address] [place] [address] Dr. Jeronimo Antoniomphocytes/100 WBC (Bld)27.3 %Dxeysp59.5-60.0The [facility] CenterComment on above:Performed By: #### BOX #### [facility] [address] [place] [address] Dr. Jeronimo CovarrubiasUAL DIFF REQNONormalThe [facility] CenterComment on above: Performed By: #### BOX #### [facility] [address] [place] [address] Dr. Jeronimo Smith (RBC) [Entitic mass]27.7 grUqwuox30.7-34.0The [facility] CenterComment on above:Performed By: #### BOX #### [facility] [address] [place] [address] Dr. Jeronimo JacobsenHC (RBC) [Mass/Vol]30.0 g/rEPivrxm35.9-35.2The [facility] CenterComment on above:Performed By: #### BOX #### [facility] [address] [place] [address] Dr. Jeronimo JacobsenV (RBC) [Entitic vol]92.4 oYDxlvri25.0-99.0The [facility] CenterComment on above:Performed By: #### BOX #### [facility] [address] [place] [address] Dr. Jeronimo Smith #0.8 103/ulNormal0.3-0.8The [facility] CenterComment on above:Performed By: #### BOX #### [facility] [address] [place] [address] Dr. Jeronimo Menardocytes/100 WBC (Bld)7.8 %Normal1.7-12.0The [facility] Comment on above:Performed By: #### BOX #### [facility] [address] [place] [address] Dr. Jeronimo Patel #6.1 103/ulNormal1.4-6.5The [facility] CenterComment on above:Performed By: #### BOX #### [facility] [address] [place] [address] Dr. Jeronimo Madsenutrophils/100 WBC (Bld)63.5 %Dosqjo60.0-75.0The [facility] CenterComment on above:Performed By: #### BOX #### [facility] [address] [place] [address] Dr. Jeronimo Suttonlet mean volume (Bld) [Entitic vol]10.7 fLNormal9.5-13.5The [facility] CenterComment on above:Performed By: #### BOX #### [facility] [address] [place] [address] Dr. Jeronimo MelgarPLT399 103/ndInitpd164-685Vpe [facility] CenterComment on above: Performed By: #### BOX #### [facility] [address] [place], [place] [address] Dr. Jeronimo AcostaC4.73 106/ulNormal4.20-5.40[facility] on above:Performed By: #### BOX #### [facility] [address] [place] [address] Dr. Jeronimo MelgarWBC9.6 103/ulNormal4.0-11.0[facility] on above: Performed By: #### BOX #### [facility] [address] [place] [address] Dr. Jeronimo Mirza URINEon 02-78-7983SCKYPSJ URINECulture Observations: LIGHT GROWTH OF MIXED GENITAL JONNY. NO POTENTIAL PATHOGENS SEEN.NormalThe [facility] on above:Performed By: #### BOX #### [facility] [address] [place] [address] Dr. Jeronimo Rodriguez SCREEN RAPID (URINE)on 78-18-1834FBWFbngufpbCmydjzUIUCSBHY [facility] on above:Performed By: #### HIV12 #### [facility] [address] [place] [address] Dr. Jeronimo FreedNegativeNormalNEGATIVEMount [facility]el [facility] System on above: Performed By: #### HIV12 #### [facility] [address] [place] [address] Dr. Jeronimo HiltonPNegativeNormalNEGATIVEMount Carmel [facility] on above: Performed By: #### HIV12 #### [facility] [address] [place] [address] Dr. Jeronimo AliceaZONegativeNormalNEGATIVEMount [facility]el [facility] on above: Performed By: #### HIV12 #### [facility] [address] [place] [address] Dr. Jeronimo GayCNegativeNormalNEGAdena Pike Medical Center on above: Performed By: #### HIV12 #### [facility] [address] [place] [address] Dr. Jeronimo Kramer-[facility] Anne HospitalComment on above: Result Comment: AMP (Amphetamine): 500ng/mL, BAR (Barbituates): 200 ng/mL, BZO (Benzodiazepines): 150 ng/mL, BUP (Buprenorphine): 10 ng/mL, KRISTINA (Cocaine): 150 ng/mL, mAMP (Methamphetamine): 500 ng/mL, MTD (Methadone): 200 ng/mL, OPI (Opiates): 100 ng/mL, OXY (Oxycodone): 100 ng/mL, PCP (Phencyclidine): 25 ng/mL, PPX (Propoxyphene): 300 ng/mL, THC (Cannabinoids): 50 ng/mL, TCA (Trycyclic Antidepressants): 300 ng/mLPerformed By: #### HIV12 #### [facility] [address] [place] [address] Dr. Jeronimo MelgarDRUG CUT HEADERDRUG CLASS TEST SYSTEM CUT-OFF CONCENTRATIONS ARE FOLLOWS:NormalThe [facility] County Hospitalment on above:Performed By: #### HIV12 #### [facility] [address] [place] [address] Dr. Jeronimo MelgarmAMPNegativeNormalNEGATIVECleveland ClinicComcorewell health pennock hospital on above: Performed By: #### HIV12 #### [facility] [address] [place] [address] Dr. Jeronimo MelgarMTDNegativeNormalNEGATIVEMount Carmel [facility] on above: Performed By: #### HIV12 #### [facility] [address] [place] [address] Dr. Jeronimo MelgarOPINegativeNormalNEGATIVECleveland ClinicComcorewell health penn[facility] hospital on above: Performed By: #### HIV12 #### [facility] [address] [place] [address] Dr. Jeronimo MelgarOXYNegativeNormalNEGATIVEMount Carmel Health System on above: Performed By: #### HIV12 #### [facility] [address] [place] [address] Dr. Jeronimo MelgarPCPNegativeNormalNEGATIVECleveland ClinicComcorewell health [facility] hospital on above: Performed By: #### HIV12 #### [facility] [address] [place] [address] Dr. Jeronimo MelgarPPXNegativeNormalNEGATIVECleveland ClinicComment on above: Performed By: #### HIV12 #### [facility] [address] [place] [address] Dr. Jeronimo MelgarTCANegativeNormalNEGATIVEMount Carmel Health System on above: Performed By: #### HIV12 #### [facility] [address] [place] [address] [address] Jeronimo MelgarTHCNegativeNormalNEGATIVEMount Carmel Health System on above: Performed By: #### HIV12 #### [facility] [address] [place] [address] Dr. Jeronimo MelgarGLYCOHEMOGLOBIN A1Con 50-94-5560DUX RECOMMENDATIONSEE BELOWNormal Cleveland ClinicComcorewell health [facility] hospital on above:Result Comment: ADA RECOMMENDED LIMIT 4.0 - 6.0 ADA THERAPEUTIC TARGET < 7.0 ACTION SUGGESTED > 7.0Performed By: #### A1C #### [facility] [address] [place] [address] Dr. Jeronimo MelgarGlucose [Mass/Vol]100 mg/dLNoMercy Health West HospitalComcorewell health pennock hospital on above:Performed By: #### A1C #### [facility] [address] [place] [address] Dr. Jeronimo MelgarHbA1c (Bld) [Mass fraction]5.1 %Normal4.5-6.2[facility] on above:Performed By: #### A1C #### [facility] [address] [place] [address] Dr. Jeronimo MelgarTYPE AND SCREENon 31-59-8303FDUX AND SCREENNegativeNoMercy Health West HospitalComcorewell health pennock hospital on above:Performed By: #### BOX #### [facility] [address] [place] [address] Dr. Jeronimo MelgarCBC AUTO DIFFon 71-42-7916GZSN #0.0 103/ulNormal0.0-0.1[facility] on above:Performed By: #### CBC #### [facility] [address] [place] [address] Dr. Jeronimo MelgarBasophils/100 WBC (Bld)0.3 %Normal0.2-2.0The [facility] Comment on above:Performed By: #### CBC #### [facility] [address] [place] [address] Dr. Jeronimo Scott #0.0 103/ulNormal0.0-0.7The [facility] CenterComment on above: Performed By: #### CBC #### [facility] [address] [place] [address] Dr. Jeronimo Parrishosinophils/100 WBC (Bld)0.2 %Critically low0.9-7.0The [facility] CenterComment on above:Performed By: #### CBC #### [facility] [address] [place] [address] Dr. Jeronimo Parrishrythrocyte distribution width (RBC) [Ratio]12.9 %Ljfgft60.0-15.0 The [facility] CenterComment on above:Performed By: #### CBC #### [facility] [address] [place] [address] Dr. Jeronimo MelgarHematocrit (Bld) [Volume fraction]37.5 %Nlssri42.0-48.0The [facility] CenterComment on above:Performed By: #### CBC #### [facility] [address] [place] [address] Dr. Jeronimo MelgarHemoglobin (Bld) [Mass/Vol]12.4 g/sSWkcves91.0-16.0The [facility] CenterComment on above:Performed By: #### CBC #### [facility] [address] [place] [address] Dr. Jeronimo Francis #0.05 10e3/ulCritically high0.00-0.03The [facility] Comment on above:Performed By: #### CBC #### [facility] [address] [place] [address] Dr. Jeronimo Francis %0.3 %Normal0.0-0.5The [facility] CenterComment on above: Performed By: #### CBC #### [facility] [address] [place] [address] [address] Jeronimo Almanza #2.0 103/ulNormal1.2-3.8The [facility] Hospitalment on above:Performed By: #### CBC #### [facility] [address] [place] [address] [address] Jeronimo Antoniomphocytes/100 WBC (Bld)14.1 %Critically low20.5-60.0The [facility] CenterComment on above:Performed By: #### CBC #### [facility] [address] [place] [address] Dr. Jeronimo Angeles DIFF REQNONormalThe [facility] CenterComment on above: Performed By: #### CBC #### [facility] [address] [place] [address] Dr. Jeronimo Jacobsen (RBC) [Entitic mass]27.9 seWpsdyo65.7-34.0The [facility] CenterComment on above:Performed By: #### CBC #### [facility] [address] [place] [address] Dr. Jeronimo Jacobsen (RBC) [Mass/Vol]33.1 g/wMEarydl17.9-35.2The [facility] Hospitalment on above:Performed By: #### CBC #### [facility] [address] [place] [address] Dr. Jeronimo Jacobsen (RBC) [Entitic vol]84.3 qWIxfizn37.0-99.0The [facility] Hospitalment on above:Performed By: #### CBC #### [facility] [address] [place] [address] Dr. Jeronimo Smith #0.6 103/ulNormal0.3-0.8The [facility] Hospitalment on above:Performed By: #### CBC #### [facility] [address] [place] [address] Dr. Jeronimo Menardocytes/100 WBC (Bld)4.0 %Normal1.7-12.0The [facility] Comment on above:Performed By: #### CBC #### [facility] [address] [place] [address] [address] Jeronimo Patel #11.7 103/ulCritically high1.4-6.5The [facility] Comment on above:Performed By: #### CBC #### [facility] [address] [place] [address] Dr. Jeronimo Madsenutrophils/100 WBC (Bld)81.1 %Critically high43.0-75.0The [facility] CenterComment on above:Performed By: #### CBC #### [facility] [address] [place] [address] Dr. Jeronimo Suttonlet mean volume (Bld) [Entitic vol]10.2 fLNormal9.5-13.5The [facility] CenterComment on above:Performed By: #### CBC #### [facility] [address] [place] [address] Dr. Jeronimo MelgarPLT420 103/syOknuve798-892Nsx [facility] CenterComment on above: Performed By: #### CBC #### [facility] [address] [place] [address] Dr. Jeronimo MelgarRBC4.45 106/ulNormal4.20-5.40The [facility] CenterComment on above:Performed By: #### CBC #### [facility] [address] [place] [address] Dr. Jeronimo MelgarWBC14.4 103/ulCritically high4.0-11.0The [facility] CenterComment on above:Performed By: #### CBC #### [facility] [address] [place] [address] Dr. Decker ChangER URINE PROFILEon 64-09-3273Lvybxkctl Ql (U)NegativeNormal NEGATIVEThe [facility] CenterComment on above:Performed By: #### BOX #### [facility] [address] [place] [address] Dr. Jeronimo MelgarClarity (U)CLEARNormalCLEARThe [facility] CenterComment on above: Performed By: #### BOX #### [facility] [address] [place] [address] [address] Jeronimo Gaylor (U)YELLOWNormalYELLOWCleveland ClinicComment on above: Performed By: #### BOX #### [facility] [address] [place] [address] Dr. Jeronimo Murcia micrscopic examination will be performed if indicated. NormalThe [facility] CenterComment on above:Performed By: #### BOX #### [facility] [address] [place] [address] Dr. Jeronimo MelgarGlucose Ql (U)NegativeNormalNEGATIVECleveland ClinicComment on above:Performed By: #### BOX #### [facility] [address] [place] [address] Dr. Jeronimo MelgarHemoglobin Ql (U)NegativeNormalNEGATIVEUniversity Hospitals Health System on above:Performed By: #### BOX #### [facility] [address] [place] [address] Dr. Jeronimo Cantorones Ql (U)>=80AbnormalNEGATIVECleveland ClinicComment on above:Performed By: #### BOX #### [facility] [address] [place] [address] Dr. Jeronimo MelgarLEUKOCYTESNegativeNormalNEGATIVECleveland ClinicComcorewell health pennock hospital on above:Performed By: #### BOX #### [facility] [address] [place] [address] Dr. Jeronimo MelgarNitrite Ql (U)NegativeNormalNEGATIVECleveland ClinicComment on above:Performed By: #### BOX #### [facility] [address] [place] [address] Dr. Jeronimo MelgarpH (U)7.0 [pH]Normal5-9Kindred Healthcarement on above: Performed By: #### BOX #### [facility] [address] [place] [address] Dr. Jeronimo MelgarSPEC GRAVITY1.691Axabxg9.005-<=1.025The [facility] CenterComment on above:Performed By: #### BOX #### [facility] [address] [place] [address] [address] Jeronimo Cardenas PROTEINTRACENormalNEGATIVE/ TRACEThe [facility] CenterComment on above:Performed By: #### BOX #### [facility] [address] [place] [address] [address] Jeronimo Hutson MICRO INDNOT INDICATEDNormalThe [facility] CenterComment on above:Performed By: #### BOX #### [facility] [address] [place] [address] [address] Jeronimo Zhangbilinogen Qn (U)1.0 {Pepito'U}/dLNormal0.2 - 1.0The [facility] CenterComment on above:Performed By: #### BOX #### [facility] [address] [place] [address] Dr. Jeronimo DomingoF CHEM 8 (BAS METB)on 38-58-0883Mtxnd gap [Moles/Vol]12.7 mmol/LNormalThe [facility] CenterComment on above:Performed By: #### BMP #### [facility] [address] [place] [address] Dr. Jeronimo MelgarCalcium [Mass/Vol]9.1 mg/dLNormal8.5-10.1The [facility] Comment on above:Performed By: #### BMP #### [facility] [address] [place] [address] Dr. Jeronimo MelgarChloride [Moles/Vol]103 mmol/MKmtwcu67-147Nwf [facility] Comment on above:Performed By: #### BMP #### [facility] [address] [place] [address] Dr. Jeronimo MelgarCO2 [Moles/Vol]23.9 mmol/LWcaibx97.0-32.0The [facility] Comment on above:Performed By: #### BMP #### [facility] [address] [place] [address] Dr. Jeronimo MelgarCreatinine [Mass/Vol]0.78 mg/dLNormal0.55-1.02The [facility] CenterComment on above:Performed By: #### BMP #### [facility] [address] [place] [address] [address] Jeronimo ParrishGFR-AF KOSOVAN>60Normal>=60The [facility] CenterComment on above:Performed By: #### BMP #### [facility] [address] [address] [address] Jeronimo ParrishGFR-NON AF KOSOVAN>60Normal>=60The [facility] CenterComment on above:Performed By: #### BMP #### [facility] [address] [address] [address] Jeronimo MelgarGlucose [Mass/Vol]155 mg/dLCritically jfmy99-520Qva [facility] on above:Performed By: #### BMP #### [facility] [address] [address] [address] Jeronimo MelgarPotassium [Moles/Vol]3.6 mmol/LNormal3.5-5.1The [facility] Comment on above:Performed By: #### BMP #### [facility] [address] [address] [address] Jeronimo MelgarSodium [Moles/Vol]136 mmol/WMczpfo938-209Lwl [facility] Comment on above:Performed By: #### BMP #### [facility] [address] [address] [address] Jeronimo MelgarUrea nitrogen [Mass/Vol]7.0 mg/dLNormal7.0-18.0The [facility] CenterComment on above:Performed By: #### BMP #### [facility] [address] [address] [address] Jeronimo Escobar nitrogen/Creatinine [Mass ratio]9.0 mg/mgNormalThe [facility] CenterComment on above:Performed By: #### BMP #### [facility] [address] [place] [address] Dr. Jeronimo Amos PREG TVon 95-84-0809TM PREG TVEXAMINATION: US PREG TV HISTORY: Missed period COMPARISON: [...] Electronically authenticated by: ANGELA SCOTT Date: 2022-03-28 16:32[facility] SystemUS PELVIS AND TRANSVAGon 69-38-3835SP PELVIS AND TRANSVAG EXAMINATION: US PELVIS AND [...] Electronically authenticated by: CHRISTIAN HOPE Date: 2021-10-17 16:35[facility] Health SystemCHLAMYDIA/GONOCOCCUS MILY (SWAB/URINE/PAPon 42-09-3368Pvkrsezyl trachomatis, NAAPositiveAbnormalNegativeThe [facility] CenterComment on above: Result Comment: .Performed By: #### CT/NGNA #### [facility] [address] [place] [address] Dr. Jeronimo MelgarNeisseria gonorrhoeae, NAANegativeNormalNegativeThe [facility] CenterComment on above:Performed By: #### CT/NGNA #### [facility] [address] [place] [address] Dr. Jeronimo MelgarVAGINITIS/VAGINOSIS DNA PROBEon 60-75-0352Ttmhzar speciesNegative NormalNegativeThe [facility] CenterComment on above:Performed By: #### VAGINT #### [facility] [address] [address] [address] Jeronimo Marby vaginalisNegativeNormalNegativeCleveland Clinic Comment on above:Performed By: #### VAGINT #### [facility] [address] [address] [address] Jeronimo Castañeda vaginalisNegativermalNegativeCleveland Clinic Comment on above:Performed By: #### VAGINT #### [facility] [address] [address] [address] Jeronimo MelgarXR foot LT min 3V*on 32-61-3588FL foot LT min 3V*[facility] [place] [address] [place] [address] XRay Report Signed Patient: Lia Desai MR#: [id number] : 2000 Acct:[id number] Age/Sex: 20 / F ADM Date: 07/18/21 Loc: ER Room: Type: [facility] ER Attending Dr: Ordering Provider: Oneil Ricci APRN Date of Service: 07/18/21 XR/XR foot LT min 3V*: Extremity Injury, Lower ([id number]) XR/XR ankle LT min 3V*: Extremity Injury, [...] Brewer Jr., M.D.07/18/2021 6:15 PM Dictation Location: [place] [address] Transcribed By: CYNDEE 07/18/211814 Dictated By: Bijan Brewer Jr, MD 07/18/211812 Signed By: 07/18/211814[facility] CenterXR knee RT 4V*on 05-15-2021 XR knee RT 4V*[facility] Main [place] [id number] XRay Report Signed Patient: Lia Desai MR#: [id number] : 2000 Acct:[id number] Age/Sex: 20 / F ADM Date: 05/15/21 Loc: ER Room: Type: [facility] ER Attending Dr: Ordering Provider: Yovani Valle [...] Ana Juan M.D.05/15/2021 8:11 PM Dictation Location: [place] [address] Transcribed By: [facility] 05/15/212010 Dictated By: Ana Juan II, MD 05/15/212008 Signed By: 05/15/212010[facility] Vital Signs Date TimeVital SignValuePerforming RmaiwkdtfAdogbicb58-18-1779 10:48-0400Body mass index (BMI) [Ratio]42.57 kg/m2[employer] [place] Work Phone: [facility] CenterAdxbdtrxbu68-82-0874 10:48-0400Body urcxlu411.64 kgNano MILLS Work Phone: [facility] CenterEekgxzgojw33-40-4502 10:48-0400Diastolic blood ctleccit71 mm[Hg]Nano MILLS Work Phone: 1([phone])[address] [place] [address]-28-2025 10:48-0400Systolic blood udmknnwz978 mm[Hg]Nano Back PA Work Phone: [phone] [place], [place] [address]6710-14-2025 11:25-0400Body mass index (BMI) [Ratio]41.66 kg/m2Amy Alexander PA Work Phone: [phone])429-[address] [place], [place] [address]Tuparqjnsq04-93-7037 11:25-0400Body tlyljm856.08 kgAmy Nazanin PA Work Phone: 1(490)[facility] [place], [place] [address]Wfmreatszo25-56-5055 11:25-0400Diastolic blood ivdhshof44 mm[Hg]Nano Back PA Work Phone: [phone] [place], [place] [address]Jbackbvhuc07-72-4248 11:25-0400Systolic blood pjydgbwy189 mm[Hg]Nano Back PA Work Phone: [phone] [place], [place] [address]Bjsujqgudy56-12-0128 09:42-0400Body mass index (BMI) [Ratio]41.22 kg/b2VpippxzsMag Samuels BALANCE RECESSER Work Phone: 1([phone] [place], [place] [address]Zebdabkwfe03-54-5282 09:42-0400Body lseflb408.85 kgaMg Samuels BALANCE RECESSER Work Phone: [phone] [place], [place] [address]Zajblxobmw05-49-5751 09:42-0400Diastolic blood mm[Hg]Mag Samuels BALANCE RECESSER Work Phone: 1([phone] [place], [place] [address]Hesjiqiuqp69-82-0988 09:42-0400Systolic blood wtzudykt986 mm[Hg]Mag Samuels BALANCE RECESSER Work Phone: 1([phone])[address] [place] [address]-15-2025 10:37-0400Body mass index (BMI) [Ratio]41.2 kg/m2Amy Nazanin PA Work Phone: [phone])[address] [place] [address]-15-2025 10:37-0400Body fcxzep914.78 kgAmy Nazanin PA Work Phone: 1([phone] [place] [address]-15-2025 10:37-0400Diastolic blood exaszjqv73 mm[Hg]Nano Back PA Work Phone: 1([phone] [place] [address]-15-2025 10:37-0400Systolic blood wuhfvxni778 mm[Hg]Nano MILLS Work Phone: 1(956)500-[address] [place], [place] [address]Cixdjfaume20-26-5038 10:50-0400Body mass index (BMI) [Ratio]41.13 kg/g0Gkfek Janes DO Work Phone: 1(978)946-[address] [place], [place] [address]Nmibywahbk86-42-4120 10:50-0400Body cvkwra255.58 kgCorey Janes DO Work Phone: 1(166)494-[address] [place], [place] [address]Kkbpjdkufe34-91-6139 10:50-0400Diastolic blood dcggojyw38 mm[Hg]Robert Janes DO Work Phone: 1(293)298-[address] [place], [place] [address]Zmzetqumxc59-85-7887 10:50-0400Systolic blood hraahizs596 mm[Hg]Robert Janes DO Work Phone: 1(712)840-[address] [place], [place] [address]Nhttrxrbdv58-76-9745 13:28-0400Body mass index (BMI) [Ratio]41.29 kg/m2Nano MILLS Work Phone: [phone])858-[address] [place], [place] [address]Untsiwwchs54-98-2577 13:28-0400Body .03 kgAmy Nazanin MILLS Work Phone: 1(770)050-[address] [place], [place] [address]Ekwkitwdja74-95-9742 13:28-0400Diastolic blood mm[Hg]Nano MILLS Work Phone: 1(303)488-[address] [place], [place] [address]Rbkiapjttn27-92-0799 13:28-0400Systolic blood ftpcvlud938 mm[Hg]Nano MILLS Work Phone: [phone] [place], [place] [address]Bgptbuevlu43-14-3243 11:32-0400Body mass index (BMI) [Ratio]40.51 kg/b2Ixmof Janes DO Work Phone: 1([phone])052-[address] [place], [place] [address]Mjlbkmmnxj13-38-1060 11:32-0400Body .85 kgCorey Janes DO Work Phone: 1(327)467-[address] [place], [place] [address]Dkcehcczim60-01-4737 11:32-0400Diastolic blood bevrjhji33 mm[Hg]Robert Janes DO Work Phone: 1(327)998-[address] [place], [place] [address]Qnxwvznsrf89-75-7130 11:32-0400Systolic blood mfulfjnc428 mm[Hg]Robert Pearsono DO Work Phone: [facility] CenterQxcszosavb11-65-8990 11:13-0400Body mass index (BMI) [Ratio]41.08 kg/f1Qfynr Janes DO Work Phone: [facility] CenterJnofhcdndg94-94-9038 11:13-0400Body tccohc771.44 kgCoredenia Pearsono DO Work Phone: 1(625)737-[address] [place], [place] [address]Wjgkyzjzbe39-53-2313 11:13-0400Diastolic blood ytyljbys44 mm[Hg]Robertdenia Pearsono DO Work Phone: 1([phone])797-[address] [place], [place] [address]Ibjcchjcqi00-51-7945 11:13-0400Systolic blood zvhryvnk270 mm[Hg]Robert Pearsono DO Work Phone: [facility] CenterSjulbwvnvt96-90-0015 15:53-0400Body mass index (BMI) [Ratio]41.8 kg/m2[facility]05-01-2025 15:53-0400Body weight 117.48 kgMet[facility]05-01-2025 15:53-0400Diastolic blood pressure 84 mm[Hg][facility]05-01-2025 15:53-0400Systolic blood pressure 118 mm[Hg][facility]10-08-2024 11:48-0400Body mass index (BMI) [Ratio]43 kg/m2Nano MILLS Work Phone: [facility] CenterLkoimovsdb16-23-3956 11:48-0400Body .84 kgNano MILLS Work Phone: [facility] CenterRripxsqeox85-99-6678 11:48-0400Diastolic blood uapvchfk73 mm[Hg]Nano MILLS Work Phone: [phone] CenterHmbrhzhnkb86-38-9824 11:48-0400Systolic blood yljzexfr851 mm[Hg]Nano MILLS Work Phone: [facility] CenterOevosqrhbj14-91-9019 08:40-0400Body mass index (BMI) [Ratio]44.89 kg/t0Jaxwx Janes DO Work Phone: [facility] CenterPvvwhmryji65-99-3868 08:40-0400Body hurzgf688.14 kgCorey Janes DO Work Phone: [facility] CenterXmnabwapax36-62-1995 08:40-0400Diastolic blood wlgenhjk46 mm[Hg][employer] DO Work Phone: [facility] CenterKdnzmvzjhb06-88-3680 08:40-0400Systolic blood rmtumram425 mm[Hg]Robert NowSpots DO Work Phone: [facility] CenterGrrhqrvmqy81-56-8668 16:56-0400Body shwqip922.64 cmSum[facility]04-12-2022 16:56-0400Body mass index (BMI) [Percentile] Per age and sex98.9 %[facility]04-12-2022 16:56-0400Body mass index (BMI) [Ratio]44.3 kg/f5UwfsezplhSumma Health Wad[facility] - [facility]04-12-2022 16:56-0400Body twhpighhvhu71.3 [degF][facility]04-12-2022 16:56-0400Body nxyiul310.6 kgSumma Health [facility] 07-18-2021 16:56-0400Diastolic blood mm[Hg][facility]04-12-2022 16:56-0400Heart rate80 /[facility]04-12-2022 16:56-0400Respiratory rate18 /[facility]04-12-2022 16:56-0400Systolic blood oeluphvn987 mm[Hg][facility]02-07-2022 19:47-0500Body hffyxh539.64 cmSumma Health [facility]02-07-2022 19:47-0500Body mass index (BMI) [Percentile] Per age and sex98.9 %[facility]02-07-2022 19:47-0500Body mass index (BMI) [Ratio]43.7 kg/k0TeykwojyhSumma Health Wad[facility] - [facility] Center02-07-2022 19:47-0500Body prlgdewkloz33.8 [degF][facility]02-07-2022 19:47-0500Body comgoq522.95 kgSumma Health [facility]02-07-2022 19:47-0500Diastolic blood zqsjfxki40 mm[Hg][facility] 05-15-2021 19:47-0500Heart rate75 /[facility] 05-15-2021 19:47-0500Respiratory rate16 /[facility] 05-15-2021 19:47-7488HpL6% (BldA) [Mass fraction]100 %[facility]02-07-2022 19:47-0500Systolic blood zgqzqnqy609 mm[Hg][facility] Encounters Encounter DateEncounter TypeCare ProviderFacilityStart: 02-02-2025 End: 50-18-1116Culbjhshane MILLS Work Phone: noMS [facility]BGYNStart: 02-02-2025 End: 29-54-1006Qcgblwshane MILLS Work Phone: noMS [facility] OBGYNStart: 02-02-2025 End: 61-24-4581rcdayeldewIQY RAMEYNot AvailableStart: 02-02-2025 End: 39-21-7655Xvtvly outpatient visit 15 minutesNano MILLS Work Phone: noMS [facility] OBGYNComment on above:Third trimester ([facility]); 34 weeks gestation of ([facility])Start: 01-25-2025 End: 01-52-7739Snfyybxen Result EncounterCorey Janes DO Work Phone: noMS External Department UnsolicitedStart: 01-25-2025 End: 81-73-1390Vtlbsnkwr Result EncounterCorey Janes DO Work Phone: noMS External Department UnsolicitedStart: 01-19-2025 End: 98-49-8430Vzlhpe outpatient visit 15 minutesNano MILLS Work Phone: noMS [facility] OBGYNComment on above:Third trimester ([facility]); 32 weeks gestation of ([facility]); Hematuria, unspecified typeStart: 01-19-2025 End: 23-44-5636uvzqvmanazWUV RAMEYNot AvailableStart: 01-04-2025 End: 95-49-2447Lduogw Lara Samuels NP Work Phone: NOMS [facility]BGYNStart: 01-04-2025 End: 58-46-0787Njxybh Lara Samuels NP Work Phone: NOMS [facility]BGYNStart: 01-04-2025 End: 70-17-4550khmazirceaNNDBLUOQ EBERLYNot AvailableStart: 01-04-2025 End: 83-45-5550Jbqtjj outpatient visit 15 minutesMag Samuels NP Work Phone: NOMS [facility]is OBGYNComment on above: size inconsistent with dates ([facility]) (Primary Dx); 30 weeks gestation of ([facility]); Third trimester ([facility]); History of miscarriage; Bipolar 1 disorder, depressed ([facility]); Anxiety, generalizedStart: 12-21-2024 End: 25-26-7297Qhrtqp Caio MILLS Work Phone: NOMS [facility] OBGYNStart: 12-21-2024 End: 17-42-7594Roymqx Caio MILLS Work Phone: NOMS [facility]BGYNStart: 12-21-2024 End: 62-24-7159Bvnkas outpatient visit 15 minutesNano MILLS Work Phone: NOMS [facility] OBGYNComment on above:Third trimester ([facility]); 28 weeks gestation of ([facility])Start: 12-21-2024 End: 26-15-2849xqfrgtxzynZHK RAMEYNot AvailableStart: 81-07-8132Udrnpewxa department patient visitCOREY FAZIOFacility:[facility] HospitalStart: 12-13-2024 End: 28-66-4589Wkvgjk-up encounterChelsea Matias PHLEBOTOMY TECHNICIAN-CNM Work Phone: ProSt. Elizabeth HospitalRPComment on above:Urine Culture Urine, Clean Catch Midstream, Vaginitis Panel PCR, Chlamydia/GC by PCR Tea SwabStart: 12-11-2024 End: 70-63-9137Chdsducgb encounterMontserrat Chaitanya MCGREGOR [facility] Start: 12-10-2024 End: 41-27-5013bbgdsxvttmTHEYWTN [facility] HospitalStart: 12-10-2024 End: 06-34-2929blqdvhzwcyThndsg Y WeiningerFacility:[facility] HospitalStart: 12-09-2024 End: 33-26-6332Ndiuhmbdp Result EncounterCorey Janes DO Work Phone: noms External Department UnsolicitedStart: 12-09-2024 End: 84-63-4531Hqdcmpzye Result EncounterCorey Janes DO Work Phone: noms External Department UnsolicitedStart: 11-23-2024 End: 95-28-9858Epzgdq outpatient visit 15 minutesCorey Janes DO Work Phone: noms Adonis OBGYNComment on above:24 weeks gestation of ([facility]); Second trimester ([facility]); History of miscarriage; Diabetes mellitus screening; Urinary tract infection with hematuria, site unspecified; Episode of recurrent major depressive disorder, unspecified depression episode severity ; Bipolar 1 disorder, depressed ([facility]); Anxiety, generalized ; PTSD (post-traumatic stress disorder)Start: 11-23-2024 End: 38-66-3130ghrbiepkuaWCIRT FAZIONot AvailableStart: 11-19-2024 End: 00-31-6931Wazlzklcl Result EncounterCorey Janes DO Work Phone: noms External Department UnsolicitedStart: 11-19-2024 End: 54-05-8725Lhrfrabwe Result EncounterCorey Janes DO Work Phone: noms External Department UnsolicitedStart: 10-28-2024 End: 89-15-3356Pygrsjecc Result EncounterCorey Janes DO Work Phone: noms External Department UnsolicitedStart: 10-28-2024 End: 98-21-2213Onxocbwxh Result EncounterCorey Janes DO Work Phone: noms External Department UnsolicitedStart: 10-27-2024 End: 28-75-2306Ozbbwxbrc Result EncounterCorey Janes DO Work Phone: noms External Department UnsolicitedStart: 10-27-2024 End: 72-64-3546Fyqtxsehb Result EncounterCorey Janes DO Work Phone: noms External Department UnsolicitedStart: 10-26-2024 End: 06-41-5855Qrcvksxcx Result EncounterCorey Janes DO Work Phone: noms External Department UnsolicitedStart: 10-26-2024 End: 48-50-0693Qvbhkdkro Result EncounterCorey Janes DO Work Phone: noms External Department UnsolicitedStart: 10-26-2024 End: 71-56-8405Lvuztq outpatient visit 15 minutesAmy Nazanin MILLS Work Phone: noms BCP OBComment on above:20 weeks gestation of ([facility]); Second trimester ([facility])Start: 10-26-2024 End: 45-53-6796ssmebyjnooLAG Bindu AvailableStart: 10-26-2024 End: 87-20-3470nqqrjpkbqaRTOXQ FAZIONot AvailableStart: 10-15-2024 End: 15-04-6719Qigvgyxkp department patient visitCOMMUNITY HEALTH SERVICES [facility] Hospitaltart: 10-05-2024 End: 73-14-7882Xobmvl flowsheetCorey Janes DO Work Phone: noms BCP OBStart: 10-05-2024 End: 32-88-4020Bzbmyv flowsheetCorey Janes DO Work Phone: noms BCP OBStart: 10-05-2024 End: 44-93-7319Xuieeqwbj Result EncounterCorey Janes DO Work Phone: NOMS External Department UnsolicitedStart: 10-05-2024 End: 34-34-4149Jahdbqax Result EncounterCorey Janes DO Work Phone: noMS External Department UnsolicitedStart: 10-05-2024 End: 46-61-7921dvsukndvrnVHGMR FAZIONot AvailableStart: 10-05-2024 End: 18-41-3755Tmxmsh outpatient visit 15 minutesCorey Janes DO Work Phone: noMS [facility] OBComment on above:Second trimester ([facility]); 17 weeks gestation of ([facility]); Well woman exam with routine gynecological exam; Exposure to STD; Need for maternal serum alpha-protein (MSAFP) screening ([facility]); Screening, , for anatomic survey ([facility]); SOB (shortness of breath); DizzinessStart: 10-05-2024 End: 17-12-5123Uklzxtk encounter procedureCorey Janes DO Work Phone: noMS HealthcareStart: 64-65-7956pqnbijbascMB-C Bryan W. RauchFacility:[facility] Centertart: 09-07-2024 End: 47-30-9570Uprwcj flowsheetCorey Janes DO Work Phone: NOMS BCP OBStart: 09-07-2024 End: 73-88-9647Yzryxf flowsheetCorey Janes DO Work Phone: NOMS BCP OBStart: 09-07-2024 End: 18-32-6813Typdhoelg Result EncounterCorey Janes DO Work Phone: noMS External Department UnsolicitedStart: 09-07-2024 End: 54-08-3524lsowpoqyctPSDZV FAZIONot AvailableStart: 09-07-2024 End: 17-44-8366Ykacqj outpatient visit 15 minutesCorey Janes DO Work Phone: noms BCP OBComment on above:Constipation, unspecified constipation type (Primary Dx); First trimester ; 13 weeks gestation of ; Nausea and vomiting in pregnancyStart: 08-18-2024 End: 34-20-3425Sslcwweeu Result EncounterCorey Janes DO Work Phone: noms External Department UnsolicitedStart: 08-18-2024 End: 24-61-8253Mufokznjk Result EncounterCorey Janes DO Work Phone: noms External Department UnsolicitedStart: 08-11-2024 Emergency department patient visitCOREY FAZIOFacility:[facility] HospitalStart: 08-06-2024 End: 98-53-7810Qdajsl outpatient visit 5 minutesNoms Bcp Ob Janes NurseNOMS BCP OBComment on above:GA: 5w6mAqrub: 08-06-2024 End: 05-34-7990qfbyhqujctCCWQS FAZIONot AvailableStart: 08-03-2024 End: 45-28-4310Ibpoxyzea department patient visitCOMMUNITY HEALTH SERVICES [facility] HospitalStart: 07-20-2024 End: 25-03-3177Ucegnkcee department patient visitCOMMUNITY HEALTH SERVICES [facility] HospitalStart: 07-03-2024 End: 01-35-6836Jtjaceuzr Result EncounterCorey Janes DO Work Phone: noms External Department UnsolicitedStart: 07-03-2024 End: 44-59-3285Djkdsczom Result EncounterCorey Janes DO Work Phone: noms External Department UnsolicitedStart: 07-01-2024 End: 75-78-4702Qoxrakxky Result EncounterCorey Janes DO Work Phone: noms External Department UnsolicitedStart: 07-01-2024 End: 39-77-7106Ngtztsago Result EncounterCorey Janes DO Work Phone: noms External Department UnsolicitedStart: 06-07-2024 Emergency department patient visitNone ProviderFacility:[facility] HospitalStart: 72-09-4044egmiizezfpEWDLM R FAZIOFacility:[facility] HospitalStart: 06-01-2024 End: 73-92-8226coodldgmgqIulm ProviderFacility:[facility] HospitalStart: 05-30-2024 End: 08-28-9603Gmsqmzyoo department patient visitC[facility] HospitalStart: 05-17-2024 End: 35-59-8011Mippdfkkr Result EncounterCorey Janes DO Work Phone: noms External Department UnsolicitedStart: 05-17-2024 End: 92-22-9560Teyxchfxo Result EncounterCorey Janes DO Work Phone: noms External Department UnsolicitedStart: 05-15-2024 End: 96-63-6777Yvildpknm Result EncounterCorey Janes DO Work Phone: noms External Department UnsolicitedStart: 05-15-2024 End: 04-96-3239Pscjrflyr Result EncounterCorey Janes DO Work Phone: noms External Department UnsolicitedStart: 05-01-2024 End: 69-54-1269Dvtsuqglc department patient visitSioux Falls Surgical Centertart: 04-22-2024 End: 08-37-3621Fswyonnxw department patient visitEureka [facility] HospitalStart: 89-38-0896Nqwoqpltc department patient visit Unlisted ProviderFacility:[facility] HospitalStart: 94-13-6126Jbstgmjda department patient visitCOREY R FAZIOFacility:[facility] HospitalStart: 01-28-2024 End: 27-14-0638igjnrsqjbpBzyzrw N Hayes PACFacility:[facility] Centertart: 01-14-2024 End: 43-34-7999Kgwzvw flowsheetNano MILLS Work Phone: noms BCP OBStart: 01-14-2024 End: 16-06-5513Wmcfem flowsheetNano MILLS Work Phone: NOMS BCP OBStart: 01-14-2024 End: 61-19-2176Qkuagdnsgg care visitNano MILLS Work Phone: NOMS BCP OBComment on above:6 weeks follow-upStart: 12-06-2023 End: 73-60-7520Mcutckoqz Result EncounterCorey Janes DO Work Phone: NOMS External Department UnsolicitedStart: 12-06-2023 End: 33-41-2590Zhcgxkndg Result EncounterCorey Janes DO Work Phone: NOMS External Department UnsolicitedStart: 12-04-2023 End: 84-59-1297Yooabluie Result EncounterCorey Janes DO Work Phone: NOMS External Department UnsolicitedStart: 12-04-2023 End: 33-79-5501Nqeiuxobv Result EncounterCorey Janes DO Work Phone: NOMS External Department UnsolicitedStart: 11-28-2023 End: 99-81-8377Pjuuhu flowsheetCorey Janes DO Work Phone: NOMS BCP OBStart: 11-28-2023 End: 30-58-7083Xarlyy flowsheetCorey Janes DO Work Phone: NOMS BCP OBStart: 11-28-2023 End: 33-07-1731Vzxtnp outpatient visit 15 minutesCorey Janes DO Work Phone: NOMS BCP OBComment on above:Third trimester ; 38 weeks gestation of pregnancyStart: 11-25-2023 End: 03-60-7180Rlgxdvlht Result EncounterCorey Janes DO Work Phone: NOMS External Department UnsolicitedStart: 11-25-2023 End: 33-86-1254Dggcrxyld Result EncounterCorey Janes DO Work Phone: NOMS External Department UnsolicitedStart: 10-01-2023 End: 83-23-9359Okaozdvsk Result EncounterCorey Janes DO Work Phone: NOEZ External Department UnsolicitedStart: 10-01-2023 End: 98-23-4657Dxufwehqr Result EncounterCorey Janes DO Work Phone: NOOB External Department UnsolicitedStart: 09-10-2023 End: 80-24-0703Ieroixntx Result EncounterCorey Janes DO Work Phone: NOOI External Department UnsolicitedStart: 09-10-2023 End: 88-98-3480Yelcfnxbq Result EncounterCorey Janes DO Work Phone: NOEX External Department UnsolicitedStart: 08-28-2023 End: 73-03-2437Oyfghjxoj Result EncounterCorey Janes DO Work Phone: NOYD External Department UnsolicitedStart: 08-28-2023 End: 73-06-5790Ewdqukgfd Result EncounterCorey Janes DO Work Phone: NOHS External Department UnsolicitedStart: 07-31-2023 End: 80-61-8851Ibkppwrga Result EncounterCorey Janes DO Work Phone: NONR External Department UnsolicitedStart: 07-31-2023 End: 87-36-1760Wlbazldvi Result EncounterCorey Janes DO Work Phone: NOHU External Department UnsolicitedStart: 05-17-2023 Clinisync Result EncounterCorey Janes DO Work Phone: NOXY External Department UnsolicitedStart: 05-17-2023 Clinisync Result EncounterCorey Janes DO Work Phone: NOAL External Department UnsolicitedStart: 05-14-2023 Chart abstractingCorey Janes DO Work Phone: NONQ BCP OBStart: 21-55-7927Czoxlvnfyhccg procedure Leah Cantu [facility] Certified Nurse Director [employer] [place] Start: 05-02-2023 End: 41-15-6705Fnhuwmets Result EncounterCorey Janes DO Work Phone: noms External Department UnsolicitedStart: 05-02-2023 End: 50-12-1232Fkjmgmnqs Result EncounterCorey Janes DO Work Phone: noms External Department UnsolicitedStart: 04-19-2023 Telephone encounterLynik Hernandez RNIndian Point Women's Services Certified Nurse Director [employer] [place] - [place]Start: 74-78-9495Vwjyhbfoq encounterLynik Hernandez RNBay [facility] Certified Nurse Director [employer] - [place]Start: 04-05-2023 Orders OnlyLeah Hernandez RNBay [facility] Certified Nurse Director [employer] - [place]Comment on above:Nausea and vomiting during (Primary Dx) Start: 08-08-2022 End: 91-10-2150tkrhyhzbyeMQ BALDOMERO ELLER .Facility:V8Fpheg: 06-02-2022 End: 97-23-6680jbmuvjmgvaQS BALDOMERO ELLER .Facility:L7Vbwca: 05-18-2022 Encounter for other preprocedural examinationDR BALDOMERO ELLER .[facility] Akrontart: 05-17-2022 End: 44-65-4837cojeipioboXI BALDOMERO ELLER .Facility:V3Bavjo: 05-16-2022 End: 08-54-4067fqvexypvwzJP BALDOMERO ELLER .Facility:L9Xxulx: 05-16-2022 End: 09-21-0522Kqdfsmjso for other preprocedural examinationDR BALDOMERO ELLER . Facility:Q8Msvra: 05-16-2022 End: 17-61-2277aijfatmabzUU BALDOMERO ELLER .Facility:X6Bbqsk: 04-19-2022 End: 75-93-0680fskslrtetkGA BALDOMERO ELLER .Facility:R9Furwe: 04-02-2022 End: 52-03-2886xumhmvzmmkZK ANA Dennis SANDSTONFacility:L8Xetvl: 26-19-5249copefcrngiHarris Regional HospitalFacility:P8Lchdy: 03-28-2022 End: 28-07-3683gbnuywzmiwHQ GREGORY KARASIK .Facility:M4Cvtqg: 10-17-2021 End: 50-02-6333oskfxirancFD GREGORY KARASIK .Facility:X9Vkzfw: 10-12-2021 End: 21-70-7805tfzcmyhjsiGU GREGORY KARASIK .Facility:F8Yeuyg: 07-18-2021 End: 71-12-7458Gugxrcnlt department patient [facility]- [facility] RoomStart: 05-15-2021 End: 87-20-0137Unztutqzo department patient visitMorrow [facility]- [facility] Procedures DateProcedureProcedure DetailPerforming ClinicianStart: 11-88-2677Nhqzc dip stick/tablet rgnt non-auto w/o micrscpAmy Nazanin MILLS Work Phone: Start: 69-08-5316ESA UA (CLEAN/CATCH) WIRE LATHER/MICRO IF IND.Robert Janes DO Work Phone: Start: 44-25-5211NUL URINE MICROSCOPIC ONLYCorey Janes DO Work Phone: Start: 42-86-3677Zsbiu dip stick/tablet rgnt non-auto w/o micrscpAmy Nazanin MILLS Work Phone: Start: 01-67-0917Lpwcn dip stick/tablet rgnt non-auto w/o micrscpKristina Abril BALANCE RECESSER Work Phone: Start: 53-31-3075Zzqeo dip stick/tablet rgnt non-auto w/o micrscpAmy Nazanin MILLS Work Phone: Start: 88-73-6091BSS CBC WITH AUTO DIFFCorey Janes DO Work Phone: Start: 94-64-9786Hevdy dip stick/tablet rgnt non-auto w/o micrscpCorey Janes DO Work Phone: Start: 67-51-1207NXD UA (CLEAN/CATCH) WIRE LATHER/MICRO IF IND.Robert Janes DO Work Phone: Start: 83-78-6982BR ECHO DOPPLER COMPLETECorey Janes DO Work Phone: Start: 38-12-8945MTL 12-LEADCorey Janes DO Work Phone: Start: 01-37-9537Tskgs dip stick/tablet rgnt non-auto w/o micrscpAmy Nazanin MILLS Work Phone: Start: 84-47-5066SAC, SERUM, OPEN SPINA BIFIDACorey Janes DO Work Phone: Start: 32-47-1932QZYIUKNDL VAGINITIS (HTRX)Robert Janes DO Work Phone: Start: 83-36-2076Emrsp dip stick/tablet rgnt non-auto w/o micrscpCorey Janes DO Work Phone: Start: 19-68-9687DCS,APTIMA HPV,AGE GDLNCorey Janes DO Work Phone: Start: 71-68-3570Apkyqlmvhsr observation [Identifier] in Cervix by Cyto Telly DELGADO Work Phone: Start: 36-66-8127KFY RUBELLA IGG ABCorey Janes DO Work Phone: Start: 86-43-1935ARB ANTIBODY RFX TO QUANT PCRCorey Janes DO Work Phone: Start: 97-45-7126Dmxjn dip stick/tablet rgnt non-auto w/o micrscpCorey Janes DO Work Phone: Start: 21-45-1471UFI TESTCorey Janes DO Work Phone: Start: 08-06-2024 End: 32-50-1516Mufha dip stick/tablet rgnt non-auto w/o micrscpCorey Janes DO Work Phone: Start: 83-54-2592AZS PREG QUANT HCGCorey Janes DO Work Phone: Start: 82-02-0056FLP PREG QUANT HCGCorey Janes DO Work Phone: Start: 42-31-9368NVY PREG QUANT HCGCorey Janes DO Work Phone: Start: 86-83-6969GKH PREG QUANT HCGCorey Janes DO Work Phone: Start: 41-74-4496UAQ CBC WITH AUTO DIFFCorey Janes DO Work Phone: Start: 06-37-0320XPTU CBC WITH PLATELET NO DIFFERENTIALCorey Janes DO Work Phone: Start: 55-02-0072OV OB GROWTHCorey Janes DO Work Phone: Start: 29-48-8361MV OB GROWTHCorey Janes DO Work Phone: Start: 16-77-9223ML OB CERVICAL LENGTHCorey Janes DO Work Phone: Start: 29-59-7773YJ for multiple gestation limitedCorey Janes DO Work Phone: Start: 28-19-8635GE OB ANATOMYCorey Janes DO Work Phone: Start: 50-40-8359TZ OB CERVICAL LENGTHCorey Janes DO Work Phone: Start: 55-28-5567Dsft cerv/vag auto thin layer prep mnl screenAmy Nazanin MILLS Work Phone: Start: 64-67-1218LOW CBC WITH AUTO DIFFCorey Janes DO Work Phone: Start: 77-37-9640FO OB TRANSVAGINALCorey Janes DO Work Phone: Start: 81-80-3616Z-ray of right knee Plan of Treatment DateCare ActivityDetailAuthorStart: 10-54-0176YCwP,Tdap and Td Vaccines (2 - Td or Tdap)DTaP,Tdap and Td Vaccines (2 - Td or Tdap)[facility] SystemStart: 33-36-3550Nlcemsbdr for malignant neoplasm of cervixPap SmearProHolzer Hospitalca [facility] SystemStart: 22-16-8544Xmcyejuqn for Chlamydia trachomatisChlamydia Screening [facility] SystemStart: 70-43-9540Vbsao BMI ScreeningAdult BMI Screening [facility] SystemStart: 29-06-0538Bodsfsd ScreeningTobacco Screening [facility] SystemStart: 06-10-2025 End: 67-22-9231wshjlrxwda59/05/2026 1:00 PM EST Initial [facility] [place] [address] [place] [phone] [facility] OBStart: 06-10-2025 End: 40-19-3717Lwcvluccspdm / ancillary services cshgxvtnku90/05/2026 12:30 PM EST Ancillary Procedure [facility] [address] [place], [place] [address] [facility] OBStart: 02-17-2025 End: 06-80-9680Mnaghcp encounter yjtwevoch21/12/2025 1:00 PM EST Routine [facility] [address] [place], [id number] Robert Marrero DO [address] [place] [address] NOMKaci [place] OBGYNStart: 02-02-2025 End: 70-14-0375Syyrryu encounter ghekeidfg20/28/2025 10:20 AM EDT Routine [facility] LANDRYGYN [address] [place] [phone] Nano Back PA [address] [place] [address] NOMKaci [place] OBGYNStart: 01-04-2025 End: 71-96-4084ED for pregnancyUS OB follow up transabdominal approach Imaging Routine size inconsistent with dates ([facility]) Expected: 01/04/2025, Expires: 05/06/2025[facility] Work Phone: comment on above:Expected: 01/04/2025, Expires: 05/06/2025Start: 01-04-2025 End: 29-59-5283Gceziij encounter toltdvsgm39/29/2025 9:30 AM EDT Routine [facility] [place] [facility] [address] [facility] [address] [place], [id number] Mag Samuels, BALANCE RECESSER [address] [facility] [place] [address] NOMS [facility]is OBGYNStart: 12-21-2024 End: 56-65-8687Jdobhde encounter procedureNOWY Adonis OBGYNComment on above: ArrivedStart: 70-39-0175DBZKU-19 Vaccine ( season)COVID-19 Vaccine ( season)[facility] HealthcareStart: 38-09-9690Jlwgmnouh vaccinationSTEWARD HEALTH CARE SYSTEM HealthcareStart: 11-23-2024 End: 41-58-8055AFR panel - Blood by Automated countCBC Lab Routine Diabetes mellitus screening Expected: 11/23/2024 (Approximate), Expires: 11/23/2025[facility] Work Phone: comment on above:Expected: 11/23/2024 (Approximate), Expires: 11/23/2025Start: 11-23-2024 End: 10-40-8221Zojfjghdzki of glucose 1 hour after glucose challenge for glucose tolerance testGlucose tolerance, 1 hour Lab Routine Diabetes mellitus screening Expected: 11/23/2024 (Approximate), Expires: 11/23/2025NOW[facility] HealthcareComment on above:Expected: 11/23/2024 (Approximate), Expires: 11/23/2025Start: 11-23-2024 End: 91-56-6136Gfhppoj encounter procedureNOWY BCP OBStart: 11-23-2024 End: 69-61-0516Ihzufvxxpndd / ancillary services pwuukzuipg66/18/2025 10:30 AM EDT Ancillary Procedure [facility] [address] [facility] [place] [address] VKSX Adonis OBGYNStart: 10-26-2024 End: 32-58-0094Xwlyqidphjim / ancillary services vtnatijfbe50/21/2025 11:00 AM EDT Ancillary Procedure [facility] [address] [facility] [address] [place] [address] [facility] BCP OBStart: 10-19-2024 End: 44-97-1611Qugqzfv encounter lneacdnyi79/14/2025 9:00 AM EDT Routine [facility] [address] [facility] [place] [address] Robert Marrero, DO [address] [place] [address] NOM[facility] BCP OBStart: 10-05-2024 End: lead ECGECG 12 lead unit performed ECG Routine SOB (shortness of breath) Dizziness Expected: 10/05/2024 (Approximate), Expires: 10/05/2025[facility] Work Phone: comment on above:Expected: 10/05/2024 (Approximate), Expires: 10/05/2025Start: 10-05-2024 End: 00-13-3194Zqgah fetoprotein, maternalAlpha fetoprotein, maternal Lab Routine Need for maternal serum alpha-protein (MSAFP) screening ([facility]) Expected: 10/05/2024 (Approximate), Expires: 11/04/2024[facility] CenterComment on above:Expected: 10/05/2024 (Approximate), Expires: 11/04/2024Start: 10-05-2024 End: 01-66-1369Gdgvszwxtrsjzp 2D completeEchocardiogram 2D complete Echocardiography Routine SOB (shortness of breath) Dizziness Expected: (Approximate), Expires: 10/05/2026NOMS HealthcareComment on above: Expected: 10/05/2024 (Approximate), Expires: 10/05/2026Start: 10-05-2024 End: 87-63-0319PK for pregnancyUS OB 14+ weeks anatomy scan Imaging Routine Screening, , for anatomic survey ([facility]) Expected: 10/05/2024, Expires: 01/05/2025[facility] HealthcareComment on above:Expected: 10/05/2024, Expires: 01/05/2025Start: 10-05-2024 End: 93-45-2588Rznhzpp encounter blbpjuqxe46/30/2025 11:10 AM EDT Routine [facility] [address] [facility] [place] [phone] Robert Marrero, [address] [place] [address] NOMS BCP OBStart: 09-07-2024 End: 15-90-2299Tsoblyc encounter /02/2025 10:50 AM EDT Routine [facility] [address] [facility] [place] [address] Robert Marrero, [address] [place] [address] NOM[facility] BCP OBStart: 08-06-2024 End: 57-56-4043EYZ/RhABO/Rh Lab Routine Missed menses , unspecified gestational age Expected: 08/06/2024 (Approximate), Expires: 08/06/2025[facility] HealthcareComment on above:Expected: 08/06/2024 (Approximate), Expires: 08/06/2025Start: 08-06-2024 End: 82-64-9627Bhmsp type and Indirect antibody screen panel - BloodType and screen Lab Routine Missed menses , unspecified gestational age Expected: 08/06/2024 (Approximate), Expires: 08/06/2025[facility] HealthcareComment on above:Expected: 08/06/2024 (Approximate), Expires: 08/06/2025Start: 08-06-2024 End: 68-70-1984Evrwk of abuse panel - Urine by Screen methodRapid drug screen, urine Lab Routine , unspecified gestational age Encounter for supervision of normal first in first trimester Expected: 08/06/2024 (Approximate), Expires: 08/06/2025N[facility] HealthcareComment on above:Expected: 08/06/2024 (Approximate), Expires: 08/06/2025Start: 07-31-2024 End: 28-01-3743YI Pelvis transvaginalUS OB transvaginal Imaging Routine Missed menses Expected: 07/31/2024, Expires: 10/30/2024[facility] Work Phone: comment on above:Expected: 07/31/2024, Expires: 10/30/2024Start: 96-28-5318Otoun BMI ScreeningAdult BMI ScreeningProMercy Health [facility] SystemStart: 80-77-8080Lmnhbbf ScreeningTobacco ScreeningProMercy Health [facility] SystemStart: 01-14-2024 End: 86-44-5480Nwkhwzl encounter hebauastq44/08/2024 11:30 AM EDT Office Visit [facility] [address] [facility] [place] [phone] Nano Back PA [address] [facility] [place] [address] ArrivedLIVERMORE SAN[facility] OBComment on above:ArrivedStart: 12-08-2023 Influenza vaccinationInfluenza Vaccine (#1)[facility] HealthcareStart: 11-28-2023 End: 37-81-9677Zahcjio encounter wtqnewugd46/22/2024 8:30 AM EDT Routine [facility] [address] [place] [address] Robert Marrero DO [address] [place] [address] ArrivedLIVERMORE SANITARIUM OBComment on above: ArrivedStart: 68-13-3948Ddckgoaeg for Chlamydia trachomatisChlamydia Screening [facility] Centertart: 06-03-2023 End: 94-25-1314Gtihlhb encounter agxnpkqrq22/26/2024 2:10 PM EST Routine [facility] [address] [place] [address] Robert Marrero, DO [address] [facility] [place] [address] N[facility] BCP OBStart: 04-17-2023 End: 99-55-9176vcbafnpuru03/10/2024 8:30 AM EST Initial [place] [facility] Certified Nurse Director [employer] [place] [address] [facility] [address] [place] [address] [place] [facility] Certified Nurse Director [employer] - [place]: 54-07-3852Olztxdqzz vaccinationInfluenza VaccineMorrow County Hospital SystemStart: 68-06-8239Yynmcmvly for malignant neoplasm of cervixPap SmearNovant Health Clemmons Medical Centertart: 73-47-2805A-ray of left ankleXR ankle LT min 3V*[facility]art: 34-39-1549B-ray of left footXR foot LT min 3V*[facility] Day[facility]ontart: 2020 Hepatitis B Vaccines (1 of 3 - 19+ 3-dose series)Hepatitis B Vaccines (1 of 3 - 19+ 3-dose series)[facility] HealthcareStart: 44-79-9823Dvfeizemrkzy Vaccine: Pediatrics (0 to 5 Years) and At-Risk Patients (6 to 64 Years) (1 of 2 - PCV) Pneumococcal Vaccine: Pediatrics (0 to 5 Years) and At-Risk Patients (6 to 64 Years) (1 of 2 - PCV)[facility] HealthcareStart: 66-24-4803Ygyfe BMI Follow Up Plan Adult BMI Follow Up PlanNovant Health Clemmons Medical Centertart: 45-98-5270Vbqnfdhufieom B Vaccine (1 of 2 - Standard)Meningococcal B Vaccine (1 of 2 - Standard)[facility] HealthcareStart: 80-24-0521JWZ Vaccines (1 - 3-dose series)HPV Vaccines (1 - 3- dose series)[facility] HealthcareStart: 82-26-8448Nbwafoh of varicella vaccination Varicella Vaccines (1 of 2 - 13+ 2-dose series)[facility] HealthcareStart: 2013 Depression ScreeningDepression ScreeningNovant Health Clemmons Medical Centertart: 2008 DTaP/Tdap/Td Vaccines (1 - Tdap)DTaP/Tdap/Td Vaccines (1 - Tdap)[facility] Healthcare Start: 96-37-9306VWU Vaccines (1 of 1 - Standard series)MMR Vaccines (1 of 1 - Standard series)[facility] CenterBacteria identified in Urine by CultureUrine culture Microbiology Routine Missed menses Ordered: 08/06/2024[facility] Healthcare Comment on above:Ordered: 08/06/2024acteria identified in Urine by CultureUrine culture Microbiology Routine Urinary tract infection with hematuria, site unspecified Ordered: 11/23/2024[facility] HealthcareComment on above:Ordered: 11/23/2024acteria identified in Urine by CultureUrine culture Microbiology Routine Hematuria, unspecified type Ordered: 01/19/2025[facility] Work Phone: comment on above:Ordered: 01/19/2025BC W Auto Differential panel - BloodCBC and differential Lab Routine Missed menses , unspecified gestational age Ordered: 08/06/2024[facility] HealthcareComment on above:Ordered: 08/06/2024HLAMYDIA TRACHOMATIS (GENITO/STI)CHLAMYDIA TRACHOMATIS (GENITO/STI) Lab Routine Exposure to STD Ordered: 10/05/2024[facility] HealthcareComment on above:Ordered: 10/05/2024ytology Cervical or vaginal smear or scraping studyPap Smear Pathology and Cytology Routine Well woman exam with routine gynecological exam Ordered: 10/05/2024[facility] HealthcareComment on above: Ordered: 10/05/2024Hemoglobin A1c/Hemoglobin.total in BloodHemoglobin A1c Lab Routine Missed menses , unspecified gestational age Ordered: 08/06/2024 [facility] HealthcareComment on above:Ordered: 08/06/2024Hepatitis B virus surface Ag [Presence] in Serum or Plasma by ImmunoassayHepatitis B surface antigen Lab Routine Missed menses , unspecified gestational age Ordered: 08/06/2024 [facility] HealthcareComment on above:Ordered: 08/06/2024Hepatitis C virus Ab [Presence] in Serum or Plasma by ImmunoassayHepatitis C antibody Lab Routine Missed menses , unspecified gestational age Ordered: 08/06/2024[facility] HealthcareComment on above:Ordered: 08/06/2024HIV-1/HIV-2 antigen/antibody combination immunoassayHIV-1 and HIV-2 antibodies Lab Routine Missed menses , unspecified gestational age Ordered: 08/06/2024[facility] HealthcareComment on above:Ordered: 08/06/2024Neisseria gonorrhoeae DNA [Presence] in Unspecified specimen by MILY with probe detectionNeisseria gonorrhea DNA probe, direct Lab Routine Exposure to STD Ordered: 10/05/2024[facility] HealthcareComment on above: Ordered: 10/05/2024Patient EducationC[facility] Clinic [facility] Work Phone: Patient referralCleveland Clinic Union Hospital [facility]tr Work Phone: Reagin Ab [Presence] in Serum by RPRRPR Lab Routine Missed menses , unspecified gestational age Ordered: 08/06/2024[facility] HealthcareComment on above:Ordered: 08/06/2024Rubella antibody, IgGRubella antibody, IgG Lab Routine Missed menses , unspecified gestational age Ordered: 08/06/2024[facility] HealthcareComment on above:Ordered: 08/06/2024 SURESWAB(R) ADVANCED VAGINITIS PLUS, TMASURESWAB(R) ADVANCED VAGINITIS PLUS, TMA Pathology and Cytology Routine Exposure to STD Ordered: 10/05/2024[facility] Work Phone: comment on above:Ordered: 10/05/2024US Pelvis transvaginalUS OB transvaginal Imaging Routine Missed menses 08/06/2024 1:33 PM [facility] Healthcare Payers DatePayer CategoryPayerPolicy [id number] (Managed Care)[facility] [employer] [id number] 2003Medicaid [id number] 2003Medicaid [facility] [place] on file Rokzgim: [address] [id number] [id number] 2..1.403726.3.57[id number] 2..1.838107.3.57[id number] 2..1.977005.3.579.[id number] 2..1.104981.3.579.[id number] 2..1.738465.3.579.2.44182-09-7368Qnfqmpg8785528 2..1.121817.3.579.2.38850-25-3205Ohwkryb6123614 2..1.925778.3.579.2.54918-81-5973Jindkdl0329247 2.16.840.1.176793.3.579.2.27661-73-4695Uyhrlvs1878057 2.16.840.1.322762.3.579.2.15399-93-7765Dwalrtw0410490 2.16.840.1.218309.3.579.2.05211-04-9282Vpldxqq2042500 2.16.840.1.032723.3.579.2.30815-78-2442Sbptswz792370213 2.16840.1.254446.3.579.2.205307-15-3535Cqzzgfk484031690 2.16840.1.492074.3.579.2.167381-16-2566Biptzsf157398029 2.16840.1.441889.3.579.2.036712-91-6323Gavkfoj562354985 2.16840.1.923971.3.579.2.298282-79-2456Zwlasho000204982 2.840.1.792767.3.579.2.603923-69-4276Ewkqmev165421479 2.16840.1.272765.3.579.2.540215-67-2656Xczkqxm909186812 2.840.1.527073.3.579.2.[id number] 2.16840.1.192014.3.579.2.74257-68-6934Dcdafoz64861162 2.16840.1.880191.3.579.2.78351-00-0839Ezflwvr16870277 2.16.840.1.676448.3.579.2.71144-54-5533Wqiedhq98100977 2.16840.1.640474.3.579.2.48161-08-3287Mmmduol78338021 2.16.840.1.505655.3.579.2.81212-80-3951Umcndrn98615705 2.16.840.1.783775.3.579.2.04137-40-2792Szmlbfc21728628 2.16840.1.943707.3.579.2.19311-12-0918Jlpesqq03324983 2.16840.1.153106.3.579.2.10113-26-9536Ibenzxz00104616 2.840.1.969032.3.579.2.29209-37-9011Wrtbdqo86205001 2.0.1.249818.3.579.2.74947-33-5927Fprqaog24749158 2.840.1.504220.3.579.2.180961-93-1590Zrimooz60689594 2.840.1.020082.3.579.2.147222-12-2059Rbepyea17982627 2.840.1.367127.3.579.2.869539-80-5818Pgmhqpd29691509 2.0.1.392953.3.579.2.527098-54-8521Hjzuhvz23692978 2.840.1.630298.3.579.2.343140-91-9691Cvblxrw84986726 2.840.1.097743.3.579.2.642181-31-3904Uitxqli89425721 2.840.1.426951.3.579.2.590646-95-7366Toyawsu43492120 2.840.1.548475.3.579.2.559055-10-3687Hetjsmo36426793 2.16.840.1.023159.3.579.2.799387-75-9802Xwanoad85259298 2.16.840.1.255158.3.579.2.312773-49-2133Uguqcyb2350181 2.16.840.1.762849.3.579.2.555021-91-8805Nmegtek1545508 2.16.840.1.457710.3.579.2.074837-95-8940Wfwnmed7526125 2.16.840.1.136319.3.579.2.549255-10-5082Tciqoiy397045667185 5k8d5b36-rh64-2610-d9c8-044epkt1j4c7Tuoc-fehGnga Pay [id number]-[id number]-rcn1-4e2t838ga305 Social History DateTypeDetailFacilityStart: 07-18-2021 End: 79-63-0897Wwwkyuu smoking status NHISNever smoked tobacco (finding) [facility]: 89-28-3587Bsc Assigned At BirthFeinterfaith medical centere [facility] Daytontart: 05-14-2023 End: 96-91-6065Qvlrwli intakeLifetime non-drinker (finding)[facility] HealthcareStart: 18-52-5929AvzgdzflkQIFD HealthcareStart: 92-45-8082Dibgah identityIdentifies as female gender (finding)[facility] HealthcareStart: 32-89-9813Tgbhlt orientation Heterosexual (finding)[facility] HealthcareStart: 05-14-2023 End: 11-48-3097Oxzpqaz of Social functionNOMS HealthcareStart: 05-14-2023 End: 50-22-6861Wtctkfq use panelMorrow County Hospital SystemStart: 08-01-2022 End: 72-13-7722Fipvuvf use and exposureSmokeless tobacco non-userMorrow County Hospital SystemStart: 01-03-2024 End: 42-38-3504Awxhguttq beverage intakeEx-drinker (finding)[facility] SystemHistory of tobacco usePassive smokerMorrow County Hospital SystemStart: 09-64-8683Huztrpe InstabilityUnknownPTriHealth McCull[facility] SystemStart: 08-14-2022 Alcohol CommentsocialMorrow County Hospital SystemStart: 39-96-1714Jcj Assigned At BirthNot on fileMorrow County Hospital SystemStart: 25-20-5953YkyDtvwct (finding) ProME[facility] SystemStart: 38-57-9023Swiszn orientationBisexual (finding) [facility] SystemTobacco smoking status NHISTobacco smoking consumption unknownMercy Hospital [facility], formerly [facility] Functional Status NczyKjjglckwxjHaeaalXowbttnc53-76-0833Fedueyd Health Questionnaire 2 item (PHQ- 2) [Reported][facility] Medical CenterGbteilovap58-86-4248UFK-8 quick depression assessment panel [Reported.PHQ][facility] Medical CenterFmtksevjoh23-74-6380Zsz difficult have these problems made it for you to do your work, take care of things at home, or get along with other people?Very difficult 11/23/2024 11:27 AM EDT Shantell Ambrose LPN Very difficult [facility] Medical CenterVdxswhugev60-70-4522Yivuksa Health Questionnaire 2 item (PHQ-2) [Reported] [facility] Medical CenterPtgjlexiwe24-33-7920Ksdkmby Health Questionnaire 2 item (PHQ-2) [Reported] [facility] Work Phone: [facility] Clinical Notes 04-17-2023 to 02-02-2025 Note Date & LipbBsytNbuwkagb29-47-3448 History of Present illness Narrative* GENE Gutierrez - 02/02/2025 10:20 AM EDT Reason for Appointment: Patient ID: Lia Desai [...] Diagnosis Date Noted 38 weeks gestation of ([facility]) 11/28/2023 Resolved Ambulatory Problems Diagnosis Date Noted [...] nursing note reviewed. Exam conducted with a welder machine operator present. Vitals: Estimated body mass index is 42.57 kg/m as calculated from the following: Height as of 08/08/22: 5' 6 . Weight as of this encounter: 263 lb 12 oz. BP: 130/84 No LMP recorded (lmp unknown). Patient is . Assessment/Plan ICD-10-CM 1. Third trimester ([facility]) Z34.93 POCT urinalysis dipstick manually resulted 2. 34 weeks gestation of ([facility]) Z3A.34 Return OB: Patient presents today for a routine obstetrics appointment. Patient is currently 34w2d . Patient states she is doing well [...] by Mag Samuels NP on behalf of: GENE Gutierrez documented in this encounterMercy Hospital South, formerly St. [facility]'s Medical CenterYjqojehboc61-91-5697 History of Present illness Narrative* GENE Gutierrez - 01/19/2025 11:20 AM EDT Reason for Appointment: Patient ID: Lia Desai is a 24 y.o. female who presents for Routine Visit Patient presents today for Return OB appointment. MEDICATIONS Current Outpatient Medications Medication Instructions escitalopram (LEXAPRO) 20 mg, Oral, Daily 27-1 MG tablet 1 tablet, Daily ALLERGIES Allergies[1] PROBLEMS Active Ambulatory Problems Diagnosis Date Noted 38 weeks gestation of ([facility]) 11/28/2023 Resolved Ambulatory Problems Diagnosis [...] ASSESSMENT & PLAN ICD-10-CM 1. Third trimester ([facility]) Z34.93 2. 32 weeks gestation of ([facility]) Z3A.32 POCT urinalysis dipstick manually resulted 3. [...] DILATION AND CURETTAGE OF UTERUS TONSILLECTOMY 2011 documented in this encounterMercy Hospital South, formerly St. [facility]'s Medical CenterHxchhdlbqi44-07-1614 History of Present illness Narrative* Mag Samuels NP - 01/04/2025 9:30 AM EDT Reason for Appointment: Patient ID: Lia Desai [...] Diagnosis Date Noted 38 weeks gestation of ([facility]) 11/28/2023 Resolved Ambulatory Problems Diagnosis Date Noted [...] nursing note reviewed. Exam conducted with a welder machine operator present. Vitals: Estimated body mass index is 41.22 kg/m as calculated from the following: Height as of 08/08/22: 5' 6 . Weight as of this encounter: 255 lb 6.4 oz. BP: 110/74 No LMP recorded (lmp unknown). Patient is . ASSESSMENT & PLAN ICD-10-CM 1. 30 weeks gestation of ([facility]) Z3A.30 POCT urinalysis dipstick manually resulted 2. Third trimester ([facility]) Z34.93 POCT urinalysis dipstick manually resulted 3. History of miscarriage Z87.59 4. Bipolar 1 disorder, depressed ([facility]) F31.9 5. Anxiety, generalized F41.1 Return OB: [...] of: Mag Samuels NP documented in this encounterMercy Hospital South, formerly St. Anthony's Medical CenterFxhraulwkd75-52-8146 History of Present illness Narrative* GENE Gutierrez - 12/21/2024 10:30 AM EDT Reason for Appointment: Patient ID: Lia Desai [...] Diagnosis Date Noted 38 weeks gestation of ([facility]) 11/28/2023 Resolved Ambulatory Problems Diagnosis Date Noted [...] ASSESSMENT & PLAN ICD-10-CM 1. Third trimester ([facility]) Z34.93 POCT urinalysis dipstick manually resulted 2. 28 weeks gestation of ([facility]) Z3A.28 Return OB: Patient presents today for [...] behalf of: GENE Gutierrez [facility] [id number] NoteEducation Materials Pulmonary Medicine Acute Bronchitis, Adult Acute [...] cough may last longer. Allergies, asthma, and exposureto smoke may make the condition worse. What are the causes? This condition can be caused by germs and by substances that irritate the lungs, including: ? Cold and flu viruses. The most common cause of this condition is the virus that causes the commoncold. ? Bacteria. This is less common. ? [...] Follow these instructions at home: ? Take wnkt-glf-wfavybt and prescription medicines only as told by [...] and water are not available, use hand drying machine back tender. ? Avoid contact with people who have [...] is easier to cough up. ? Take nhlz-ntb-yovgsis a (more content not included)...[facility] 12-13-2024 Miscellaneous Notes* Telephone Encounter - Alberta Mendez CMA - 12/13/2024 8:28 PM EDT Patient returned phone call. Advised patient of results per John's result note. Patient verbalized understanding. [facility] in [facility]Tr[facility] Telephone encounter Note* Telephone Encounter - Alberta Mendez CMA - 12/13/2024 8:28 PM EDT Patient returned phone call. Advised patient of results per John's result note. Patient verbalized understanding. [facility] Telephone encounter Note* Telephone Encounter - Zaida Tavares MA - 12/11/2024 11:56 AM EDT Pt called in stating seen at [facility] ER due to pain. [employer] their told her she possibly has kidney stones. Per supervisor research kennel pt needs to discuss with dr. Marrero to see what he would like to do. Advised pt that Janes not in office today but will send message to get his thoughts. Please advise [facility] [id number] Miscellaneous Notes* Telephone Encounter - Zaida Tavares MA - 12/11/2024 11:56 AM EDT Pt called in stating seen at [facility] ER due to pain. Director [employer] their told her she possibly has kidney stones. Per supervisor research kennel pt needs to discuss with dr. Marrero to see what he would like to do. Advised pt that Janes not in office today but will send message to get his thoughts. Please advise documented in this encounterNOMosaic Life Care at St. 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 ? Your baby has: ? [...] at home: Medicines ? Give your baby nksf-ebs-keezkby and prescription medicines only as told by [...] with Henok's syndrome. Relieving symptoms ? Use czdv-rbp-qmrdhpn or homemade saline nasal drops, which are [...] salt in 1 cup (237 mL) of warmwater. ? Use a bulb syringe to suction [...] recommended immunizations, including the yearly (annual) flu vaccineif older than 6 months. ? Keep all [...] and water are not available, use hand drying machine back tender. Other caregivers should also wash their hands [...] Your baby develops a (more content not included)...[facility] [id number] History of Present illness Narrative* Shantell Ambrose LPN - 11/23/2024 11:20 AM EDT Reason for Appointment: Patient ID: Lia Desai [...] Diagnosis Date Noted 38 weeks gestation of ([facility]) 11/28/2023 Resolved Ambulatory Problems Diagnosis Date Noted [...] PLAN ICD-10-CM 1. 24 weeks gestation of ([facility]) Z3A.24 POCT urinalysis dipstick manually resulted 2. Second trimester ([facility]) Z34.92 POCT urinalysis dipstick manually resulted 3. [...] of: Robert Marrero DO documented in this encounterMer[facility], [facility] [id number] History of Present illness Narrative* GENE Gutierrez - 10/26/2024 1:20 PM EDT Reason for Appointment: Patient ID: Lia Desai [...] Diagnosis Date Noted 38 weeks gestation of ([facility]) 11/28/2023 Resolved Ambulatory Problems Diagnosis Date Noted [...] PLAN ICD-10-CM 1. 20 weeks gestation of ([facility]) Z3A.20 POCT urinalysis dipstick manually resulted 2. Second trimester ([facility]) Z34.92 POCT urinalysis dipstick manually resulted Return [...] behalf of: GENE Gutierrez documented in this encounterMercy Hospital South, formerly [facility]. [facility] [id number] NoteXR CHEST 1 VW History: Near syncope Procedure: Chest AP portable upright Comparison: 04/22/2024 Findings: The heart and lungs show no acute findings, and the mediastinum and anushka are grossly negative . No pneumothorax. Impression: No acute pulmonary process. Finalized by Angela Baker MD on 10/15/2024 1:51 PMPMercy Health [facility] 10-05-2024 History of Present illness Narrative* Mag Samuels NP - 10/05/2024 11:10 AM EDT Reason for Appointment: Patient ID: Lia Desai [...] Diagnosis Date Noted 38 weeks gestation of ([facility]) 11/28/2023 Resolved Ambulatory Problems Diagnosis Date Noted [...] nursing note reviewed. Exam conducted with a welder machine operator present. Vitals: Estimated body mass index is 40.51 kg/m as calculated from the following: Height as of 08/08/22: 5' 6 . Weight as of this encounter: 251 lb. BP: 124/78 No LMP recorded (lmp unknown). Patient is . ASSESSMENT & PLAN ICD-10-CM 1. Second trimester ([facility]) Z34.92 POCT urinalysis dipstick manually resulted 2. 17 weeks gestation of ([facility]) Z3A.17 3. Well woman exam with routine gynecological exam Z01.419 Pap Smear 4. Exposure to STD Z20.2 SURESWAB(R) ADVANCED VAGINITIS PLUS, TMA CHLAMYDIA TRACHOMATIS (GENITO/STI) Neisseria gonorrhea DNA probe, direct 5. Need for maternal serum alpha-protein (MSAFP) screening ([facility]) Z36.1 Alpha fetoprotein, maternal Alpha fetoprotein, maternal 6. Screening, , for anatomic survey ([facility]) Z36.89 US OB 14+ weeks anatomy scan [...] of: Robert Marrero DO documented in this encounterMercy Hospital South, formerly St. [facility] [id number] NotePatient Education Materials Follows:Disease Upper Respiratory Infection, Adult An upper [...] to help relieve symptoms, such as: ? Oxju-wml-bxmyggs cold medicines. ? Medicines to reduce coughing [...] your fever is gone, or until your doctorsays you may return to work or school. [...] ??1 tsp (3?6 g) of salt in 1cup (237 mL) of warm water. ? Use a cool-mist humidifier to add moisture to the air. This can help you breathe more easily. Eating and drinking ? Drink enough fluid to keep your pee (urine) pale yellow. ? Eat soups and other clear broths. General instructions ? Take qkvd-wib-pfgfbkn and prescription medicines only as told by your doctor. ? Do not smoke or use any products that contain nicotine or tobacco. If you need help quitting, askyour doctor. ? Avoid being where people are [...] cannot use soap and water, use hand drying machine back tender. ? Avoid touching your mouth, face, eyes, [...] get better within 7?10 days. ? Take turv-hge-xziyrmg and prescription medicines only as told by your doctor. This information is not intended to replace advice given to (more content not included)...[facility] [id number] History of Present illness Narrative* Mag Samuels, CAROL - 09/07/2024 10:50 AM EDT Reason for Appointment: Patient ID: Lia Desai [...] History: Diagnosis Date Bacterial vaginosis Chlamydia Depression ([facility]) Family history of breast cancer Family history of uterine cancer HISTORY PAST MEDICAL HISTORY SOCIAL HISTORY Past Medical History: Diagnosis Date Bacterial vaginosis Chlamydia Depression ([facility]) Family history of breast cancer [...] nursing note reviewed. Exam conducted with a welder machine operator present. Vitals: Estimated body mass index is [...] of: Robert Marrero DO documented in this encounterMercy Hospital South, formerly [facility]. [facility] [id number] NoteEducation Materials Obstetrics and Gynecology Morning Sickness Morning [...] ? Medicines to prevent throwing up. ? Uir. Follow these instructions at home: Medicines ? Take your medicines only as told by your provider. ? Do not use any prescription, qhtq-epe-otuwmfj, or herbal medicines for morning sickness without [...] to throw up. Foods to avoid ? Dane foods. ? Fatty foods. ? Spicy foods. [...] body to make you feel better. ? Agency your teeth after throwing up or rinse [...] provider. Document Revised: 12/26/2023 Document Reviewed: 07/04/2023 [employer] Patient Education ? 2023 [employer] [id number] History of Present illness Narrative* Zaida Tavares MA - 08/06/2024 1:30 PM EDT Reason for Appointment: Patient ID: Lia Desai [...] History: Diagnosis Date Bacterial vaginosis Chlamydia Depression ([facility]) Family history of breast cancer Family history [...] drink 6-8 glasses of water a day, eatno raw or undercooked meat, and stay away from [facility]. Patient has also been advised to not change litter boxes and eat 6 small meals a day. Patient has been consulted regarding the do's and don'ts ofpregnancy. Patient was given labs and all questions [...] by: Zaida Tavares MA documented in this encounterMercy Hospital South, formerly St. [facility] [id number] NoteEducation Materials Orthopedics Flank Pain, Adult Flank pain [...] as told by your doctor. ? Take hkhu-obz-dkfotjy and prescription medicines only as told by [...] away. Call your local emergency services (911 int [place] ? Do not wait to see [...] provider. Document Revised: 06/05/2021 Document Reviewed: 06/05/2021 [employer] Patient Education ? 2023 [employer] GroceryKe[facility]01-12-2025 Note Education Materials Infectious Disease Influenza, Adult [...] serious problems, such as a lung infection (pneumonia),if you: ? Are older than 65. ? [...] doctor may want you to: ? Take teql-mnh-ntvreyk medicines. ? Drink plenty of fluids. The [...] Applesauce. ? Rice. ? Lean meats. ? Kanab. ? Crackers. ? Do not eat or drink: ? Fluids that have a lot of sugar or caffeine. ? Alcohol. ? Spicy or fatty foods. General instructions ? Take jugi-tqk-akagwii and prescription medicines only as told by [...] use soap and water, use alcohol-based hand drying machine back tender. ? Keep all follow-up visits. How is [...] the hospital. Summary ? (more content not included)...[facility] [id number] NoteEducation Materials Obstetrics and Gynecology Bacterial Vaginosis Bacterial [...] these instructions at home: Medicines ? Take wmqh-avp-mxgqjdn and prescription medicines as told by your doctor. ? Take or use your antibiotic medicine as told by your doctor. Do not stop taking or using it, evenif you start to feel better. General instructions [...] or tobacco. If you need help quitting, askyour doctor. ? Do not use drugs. ? [...] for Disease Control and Prevention: www.cdc.gov ? [place] [employer]: www.ashastd.org ? Office on [...] from sex (STIs). Treating this can lower thatchance. ? Get treated if you are . [...] provider. Document Revised: 09/22/2020 Document Reviewed: 09/22/2020 [employer] Patient Education ? 2023 [employer]. Orthopedics Acute Back Pain, Adult Acute back pain is sudden and usually short-lived. It is often caused by an injury to the muscles and tissues in the back. The injury may resul (more content not included)...[facility] [id number] NotePatient Education Materials Follows:Disease Upper Respiratory Infection, Adult An upper respiratory infection (URI) is a common viral infection of the nose, throat, and upper airpassages that lead to the lungs. The most [...] to help relieve symptoms, such as: ? Ggys-tbn-qfswtwt cold medicines. ? Cough suppressants. Coughing is [...] other clear broths. General instructions ? Take udjo-ufd-sqdqwnb and prescription medicines only as told by your health care provider. Theseinclude cold medicines, fever reducers, and cough suppressants. [...] seconds. If soap and water are not available,use hand drying machine back tender. ? Avoid touching your mouth, face, eyes, [...] Mood. These symptoms may (more content not included)...[facility] [id number] History of Present illness Narrative* GENE Gutierrez - 01/14/2024 11:30 AM EDT Reason for Appointment: Patient ID: Lia Desai [...] History: Diagnosis Date Bacterial vaginosis Chlamydia Depression ([facility]) Family history of breast cancer Family history of uterine cancer HISTORY PAST MEDICAL HISTORY SOCIAL HISTORY Past Medical History: Diagnosis Date Bacterial vaginosis Chlamydia Depression ([facility]) Family history of breast cancer [...] nursing note reviewed. Exam conducted with a welder machine operator present. Vitals: Estimated body mass index is [...] behalf of: GENE Gutierrez documented in this encounterMercy Hospital South, formerly St. [facility] [id number] History of Present illness Narrative* Shantell Ambrose, MILLINERY DEPARTMENT MANAGER - 11/28/2023 8:30 AM EDT Reason for Appointment: Patient ID: Lia Desai [...] History: Diagnosis Date Bacterial vaginosis Chlamydia Depression ([facility]) Family history of breast cancer Family history of uterine cancer HISTORY PAST MEDICAL HISTORY SOCIAL HISTORY Past Medical History: Diagnosis Date Bacterial vaginosis Chlamydia Depression ([facility]) Family history of breast cancer [...] nursing note reviewed. Exam conducted with a welder machine operator present. Vitals: Estimated body mass index is [...] of: Robert Marrero DO documented in this encounterMercy Hospital South, formerly St. [facility] [id number] History of Present illness Narrative* Leah Hernandez RN - 05/07/2023 10:51 AM EST Letter sent [facility] patient via [facility] and also to her My Chart regarding her missed OB intake appointment and also her MICHAEL for her Chlamydia. documented in this encounterTr[facility]ull [facility]01-12-2024 Miscellaneous Notes* Telephone Encounter - Leah Hernandez RN - 04/19/2023 3:28 PM EST Called patient to reschedule her IOB intake visit. No answer. Left message to call office to reschedule her appointment. documented in this encounterTrumbull [facility] Center01-12-2024 Telephone encounter Note* Telephone Encounter - Leah Hernandez RN - 04/19/2023 3:28 PM EST Called patient to reschedule her IOB intake visit. No answer. Left message to call office to reschedule her appointment. [facility]01-10-20[facility] Miscellaneous Notes* Telephone Encounter - Leah Hernandez RN - 04/17/2023 8:28 AM EST Patient called for her OB intake per phone. No answer. Left message to call office. documented in this encounterTrumbull [facility] Center01-10-2024 Telephone encounter Note* Telephone Encounter - Leah Hernandez RN - 04/17/2023 8:28 AM EST Patient called for her OB intake per phone. No answer. Left message to call office. [facility] CenterEvaluation noteNo assessment information available [facility] Work Phone: Evaluation note* Diagnosis 6 weeks follow-up documented [facility]* Diagnosis Third trimester state, incidental 38 weeks gestation of documented in this encounter [facility]* Diagnosis Nausea and vomiting during - Primary [facility] Diagnosis Missed menses , unspecified gestational age Encounter for supervision of normal first in first trimester documented in this encounter [facility]* Diagnosis Constipation, unspecified constipation type- Primary First trimester state, incidental 13 weeks gestation of Nausea and vomiting in Unspecified vomiting of , unspecified as to episode of care documented in this [facility]* Diagnosis Second trimester ([facility]) state, incidental 17 weeks gestation of ([facility]) Well woman exam with routine gynecological exam Routine gynecological examination Exposure to STD Need for maternal serum alpha-protein (MSAFP) screening ([facility]) Screening, , for anatomic survey ([facility]) Encounter for anatomic survey SOB (shortness of breath) Shortness of breath Dizziness Dizziness and giddiness documented in this encounter [facility]* Diagnosis 20 weeks gestation of ([facility]) Second trimester ([facility]) state, incidental documented [facility] this [facility]* Diagnosis 24 weeks gestation of ([facility]) Second trimester ([facility]-HCC) state, incidental History of miscarriage Personal history of other genital system and obstetric disorders Diabetes mellitus screening Screening for diabetes mellitus Urinary tract infection with hematuria, site unspecified Episode of recurrent major depressive disorder, unspecified depression episode severity Bipolar 1 disorder, depressed (HCC) Anxiety, generalized PTSD (post-traumatic stress disorder) Posttraumatic stress disorder documented [facility]* Diagnosis Third trimester ([facility]) state, incidental 28 weeks gestation of ([facility]) documented [facility]* Diagnosis size inconsistent with dates ([facility]HS-HCC)- Primary 30 weeks gestation of ([facility]) Third trimester ([facility]CC) state, incidental History of miscarriage Personal history of other genital system and obstetric disorders Bipolar 1 disorder, depressed (HCC) Anxiety, generalized documented [facility]* Diagnosis Third trimester ([facility]) state, incidental 32 weeks gestation of ([facility]) Hematuria, unspecified type documented [facility] this [facility]* Diagnosis Third trimester ([facility]) state, incidental 34 weeks gestation of ([facility]) documented in this encounter [facility] HealthcareInstructionsNot on filedocumented in this encounterProMediOhioHealth [facility] SystemInstructionsNot on filedocumented in this encounterProMediOhioHealth [facility] Chief Complaint and Reason for Visit Chief Complaint right knee pain Lt foot/ankle injury fell down stairs Advance Directives Advance Directive Response Recorded Date/ Time Advance Directives No May 15, 2021 9:11pm Date ActivatedDate InactivatedComments07/30/2023 4:35 PM07/30/2023 7:06 PM Summary Purpose Family History No Family History Records FoundNo Family History Records FoundNo Family History Records FoundNo Family History Records FoundNo Family History Records Found Additional Source Comments Care Teams (unrecognized sec tion and content) Team Status: Inactive Member Role Status Dates NON STAFF Primary Care Provider Active Walter Dukes ProviderActive Team Status: Inactive Member Role Status Dates NON STAFF Primary Care Provider Active GENE Reilly-Jacek ProviderActive Team Status: Active Member Role Status Dates NON STAFF Primary Care Provider Active Team MemberRelationshipSpecialtyStart DateEnd Date Nano Back PA [address] [facility] [place] [address]05/01[facility] MemberRelationshipSpecialtyStart DateEnd Date [facility] [address], [place] PCP - [facility]08/11/18Te MemberRelationshipSpecialtyStart DateEnd Date [facility] [address] [place], [place] PCP - [facility]08/11/18Te MemberRelationshipSpecialtyStart DateEnd [facility] [address] [place], [place] PCP - [facility]08/11/18[facility] MemberRelationshipSpecialtyStart DateEnd Date Nano Back PA [address] [facility] [address] [place], [facility] [place] [address] MemberRelationshipSpecialtyStart DateEnd Date Nano Back PA [address] [facility] [place] [address]05/01Te MemberRelationshipSpecialtyStart DateEnd Date Nano Back PA [address] [facility] [place] [address]05/01[facility] MemberRelationshipSpecialtyStart DateEnd Date Nano Back PA [address] [facility] [address] [place], [place] [id number] [facility]01/07/24Team MemberRelationshipSpecialtyStart DateEnd Date Nano Back PA [address] [facility] [address] [place], [place] [id number] [facility]01/07/24Te MemberRelationshipSpecialtyStart DateEnd Date Nano Back PA [address] [facility] [place] [address] [facility]01/07/24Te MemberRelationshipSpecialtyStart DateEnd Date Nano Back PA [address] [facility] [place] [address] [facility]01/07/24Te MemberRelationshipSpecialtyStart DateEnd Date Naon Back PA [address] [place] [address] [place] [address] [facility]01/07/24Team MemberRelationshipSpecialtyStart DateEnd Date [facility], [place] [id number] [place], [place] [facility]15/24Team MemberRelationshipSpecialtyStart DateEnd Date Nano Back PA [address] [place] [address] [place] [address] [facility]01/07/24Team MemberRelationshipSpecialtyStart DateEnd Date Nano Back PA [address] [facility] [address] [place], [place] [id number] [place] [address] MemberRelationshipSpecialtyStart DateEnd Date Nano Back PA [address] [facility] [place] [address]05/01Te MemberRelationshipSpecialtyStart DateEnd Date Nano Back PA [address] [facility] [address] [place], [facility]05/01Te MemberRelationshipSpecialtyStart DateEnd Date Nano Back PA [address] [facility] [place] [address] [facility]01/07/24 Goals (unrecognized section and content) Goals may be documented in a n alternate sectionNot on filedocumented as of this encounterNot on filedocumented as of this encounterNot on filedocumented as of this encounterNot on filedocumented as of this encounterNot on filedocumented as of this encounter INFORMATION SOURCE (unrecogn ized section and content) DATE CREATED AUTHOR 07/27/2021 [facility] DATE CREATED AUTHOR AUTHOR'S ORGANIZ ATION 08/16/2022 [facility] DATE CREATED AUTHOR AUTHOR'S ORGANIZ ATION 12/13/2024 [facility] DATE CREATED AUTHOR AUTHOR'S ORGANIZ ATION 01/12/2025 [facility] DATE CREATED AUTHOR AUTHOR'S ORGANIZ ATION 02/03/2025 [facility] EPIC Reason for Visit (unrecogniz ed section and content) ReasonCommentsPostpartum Follow-upReasonCommentsRoutine VisitReason CommentsAmenorrheaReasonCommentsRoutine Visit FOR RECORDS PERTAINING TO PATIENTS WHO [...] BE BASED ON THE PRIMARY CLINICAL RECORDS. [facility] [employer] [facility]. provides no warranty or guarantee of the accuracy or completeness of information in this document.
== END 2025-02-17 19:51 | disposition home or self-care (01) ==
LOC: LAB 19:50
PROVIDERS: Visit Provider Obstetrics & Gynecology
DX: Z34.93 Encounter for supervision of normal pregnancy, unspecified, third trimester (principal)
CPT/HCPCS: 87081

== ENCOUNTER 2025-03-10 04:50 | Inpatient (IN) | payer OTHER, SELFPAY ==
--- OUTSIDE RECORDS SUMMARY | 2025-02-24 14:00 | XMS_ITS | Encounter Summary ---
Author Organization [facility] Address [address] [place] [address] Care Team Providers Care Parking Attendant Name Role Phone Nano Back Unavailable Reason for Visit * ReasonCommentsRoutine Visit Encounter Details DateTypeDepartmentCare Team (Latest Contact Info)Bdmockgapsj90/19/2025 2:00 PM ESTRoutine [facility] [address] [address] Robert Marrero DO [address] [facility] [address] Jorge Lamb, [facility]11 Third trimester ([facility]); 37 weeks gestation of ([facility]) Social History Tobacco UseTypesPacks/DayYears UsedDateSmoking Tobacco: NeverSmokeless Tobacco: NeverAlcohol UseStandard Drinks/WeekCommentsNot Currently3 (1 standard drink = 0.6 oz pure alcohol)PHQ-2AnswerDate RecordedPatient Health Questionnaire-2 Score 6011/23/2024Estimated Date of UyzumeqnVkncpaxiIms23/07/2025ased on UltrasoundSex and Gender InformationValueDate RecordedSex Assigned at Oxnkzg5905/01/2023 12:34 PM ESTLegal BhrLrwlrz37/15/2023 6:38 PM EDTGender VfzbhmnfLfwxtg70/24/2024 12:34 PM ESTSexual OqavsesoqtkIvkddosu02/24/2024 12:34 PM ESTdocumented as of this encounter Last Filed Vital Signs Vital SignReadingTime TakenCommentsBlood Qgkxtfef626/8811 2:29 PM EST Pulse--Temperature--Respiratory Rate--Oxygen Saturation--Inhaled Oxygen Concentration--Icxkgv217 kg (266 lb)02/24/2025 2:29 PM ESTHeight--Body Mass Index42.9305 12:00 PM EDTdocumented in this encounter Progress Notes * Catrina Samuels NP - 02/24/2025 2:00 PM EST Reason for Appointment: Patient ID: [...] weeks gestation of ([facility]) 11/28/2023 Resolved Ambulatory Problems Diagnosis Date Noted [...] Negative. Gastrointestinal: Negative. Genitourinary: Negative. Musculoskeletal: Negative. Bilateral carpal tunnel symptoms Skin: Negative. Neurological: Negative. All other systems [...] nursing note reviewed. Exam conducted with a dope heater present. Vitals: Estimated body mass index is 42.93 kg/m?? as calculated from the following: Height as of 08/08/22: 5' 6 . Weight as of this encounter: 266 lb. BP: 136/88 No LMP recorded (lmp unknown). Patient is . Assessment/Plan ICD-10-CM 1. Third trimester ([facility]) Z34.93 2. 37 weeks gestation of ([facility]) Z3A.37 POCT urinalysis dipstick manually resulted Assessment/Plan Return OB: Patient presents today for a routine obstetrics appointment. Patient is currently 37w3d . Patient states she is doing well [...] this encounter Procedures Procedure NamePriorityDate/TimeAssociated DiagnosisCommentsPOCT URINALYSIS AZUAIKZCHnjnnzb09/19/2025 2:30 PM EST 37 weeks gestation of ([facility]) documented in this encounter Results * (ABNORMAL) POCT urinalysis dipstick manually resulted (02/24/2025 2:30 PM EST) ComponentValueRef RangeTest MethodAnalysis TimePerformed AtPathologist SignatureColor, UAYellowClarity, UAClearGlucose, UANegativeNegative - 2000(110) ++++ mg/dLBilirubin, UANegativeNegative - 4(70) +++ mg/dLKetones, UA NegativeNegative - 160(16) ++++ mg/dLSpec Grav, UA1.0151 - 1.03Blood, UA PositiveNegative - 50 Villa/mcLpH, UA6.55 - 9Protein, UATraceNegative - 2000(20) ++++ mg/dLUrobilinogen, UA1.00.2 - 12 mg/dLLeukocytes, UANegativeNegative - 500+++ Pierre/mcLNitrite, UANegativeNegative - PositiveSpecimen (Source) Anatomical Location / LateralityCollection Method / VolumeCollection Time Received ZsusWdsqy12/19/2025 2:30 PM EST Narrative Authorizing ProviderResult TypeResult StatusCorey Janes DOPOINT OF CARE TEST ENTER/EDIT ORDERABLESFinal Result documented in this encounter Visit Diagnoses Diagnosis Third trimester ([facility]) state, incidental 37 weeks gestation of ([facility]) documented in this encounter Additional Health Concerns AssessmentNoted TimePHQ-9 Depression Total Score: 11:27 AM EDT documented as of this encounter Care Teams Team MemberRelationshipSpecialtyStart DateEnd Date Nano Back PA [address] [place] [address] Dr [place] [id number] PCP - [facility]01/07/24documented as of this encounter
--- OUTSIDE RECORDS SUMMARY | 2025-03-02 11:10 | XMS_ITS | Encounter Summary ---
Author Organization [facility] Address [address] [place] [address] Care Team Providers Care Educational Psychology Teacher Name Role Phone Nano Back Unavailable Reason for Visit * ReasonCommentsRoutine Visit Encounter Details DateTypeDepartmentCare Team (Latest Contact Info)Foceuykqich85/25/2025 11:10 AM ESTRoutine [facility] [address] [place] [address] Robert Marrero DO [address] [facility] [address] Jorge Lamb, [facility]11 38 weeks gestation of ([facility]); Third trimester ([facility]); Anxiety, generalized Social History Tobacco UseTypesPacks/DayYears UsedDateSmoking Tobacco: NeverSmokeless Tobacco: NeverAlcohol UseStandard Drinks/WeekCommentsNot Currently3 (1 standard drink = 0.6 oz pure alcohol)PHQ-2AnswerDate RecordedPatient Health Questionnaire-2 Score 6011/23/2024Estimated Date of GxcxcdwrVltfyshcRbj62/07/2025Based on UltrasoundSex and Gender InformationValueDate RecordedSex Assigned at Busadt6005/01/2023 12:34 PM ESTLegal ScjLxhytv58/15/2023 6:38 PM EDTGender NjjlaobyDmlotx23/24/2024 12:34 PM ESTSexual OthxxaltbbcYeupmxxa38/24/2024 12:34 PM ESTdocumented as of this encounter Last Filed Vital Signs Vital SignReadingTime TakenCommentsBlood Ispywlcm969/6803/02/2025 11:38 AM EST Pulse--Temperature--Respiratory Rate--Oxygen Saturation--Inhaled Oxygen Concentration--Ibpkdv313 kg (267 lb)03/02/2025 11:38 AM ESTHeight--Body Mass Index43.0908/08/2022 12:00 PM EDTdocumented in this encounter Progress Notes * Rekha Osman, FEDE - 03/02/2025 11:10 AM EST Reason for Appointment: Patient ID: Lia [...] Diagnosis Date Noted 38 weeks gestation of ([facility]) 11/28/2023 Resolved Ambulatory Problems Diagnosis [...] Constitutional: Appearance: Normal appearance. She is well-developed. Genitourinary: Vulva normal. Cardiovascular: Rate and Rhythm: Normal rate and [...] nursing note reviewed. Exam conducted with a gun striper present. Vitals: Estimated body mass index is 43.09 kg/m?? as calculated from the following: Height as of 08/08/22: 5' 6 . Weight as of this encounter: 267 lb. BP: 110/68 No LMP recorded (lmp unknown). Patient is . Assessment/Plan ICD-10-CM 1. 38 weeks gestation of ([facility]) Z3A.38 POCT urinalysis dipstick manually resulted 2. Third trimester ([facility]) Z34.93 Assessment/Plan Return OB: Patient presents today for a routine obstetrics appointment. Patient is currently 38w2d . Patient states she is doing well [...] week for routine OB appointment. Documented by Rekha Osman LPN on behalf of: Robert Marrero DO documented in this encounter Plan of Treatment Not on file documented as of this encounter Procedures Procedure NamePriorityDate/TimeAssociated DiagnosisCommentsPOCT URINALYSIS POKJCIMKQaqwqpy59/25/2025 11:38 AM EST 38 weeks gestation of ([facility]) documented in this encounter Results * (ABNORMAL) POCT urinalysis dipstick manually resulted (03/02/2025 11:38 AM EST)ComponentValueRef RangeTest MethodAnalysis TimePerformed AtPathologist SignatureColor, UAYellowClarity, UAClearGlucose, UANegativeNegative - 2000(110) ++++ mg/dLBilirubin, UANegativeNegative - 4(70) +++ mg/dLKetones, UA NegativeNegative - 160(16) ++++ mg/dLSpec Grav, UA1.0301 - 1.03Blood, UA NegativeNegative - 50 Villa/mcLpH, UA6.05 - 9Protein, UA1+Negative - 2000(20) ++++ mg/dLUrobilinogen, UA1.00.2 - 12 mg/dLLeukocytes, UA1+Negative - 500+++ Pierre/mcLNitrite, UANegativeNegative - PositiveSpecimen (Source)Anatomical Location / LateralityCollection Method / VolumeCollection TimeReceived Time Urine03/02/2025 11:38 AM EST Narrative Authorizing ProviderResult TypeResult StatusCorey Janes DOPOINT OF CARE TEST ENTER/EDIT ORDERABLESFinal Result documented in this encounter Visit Diagnoses Diagnosis 38 weeks gestation of ([facility]) Third trimester ([facility]) state, incidental Anxiety, generalized documented in this encounter Additional Health Concerns AssessmentNoted TimePHQ-9 Depression Total Score: 11:27 AM EDT documented as of this encounter Care Teams Team MemberRelationshipSpecialtyStart DateEnd Date Nano Back PA [address] [place] [address] [place] [address] PCP - [facility]01/07/24documented as of this encounter
[2025-03-10] VITALS (43 sets, daily range): BP systolic 95–142; BP diastolic 53–89; PULSE 68–130; TEMP 36.6–37.2
--- OUTSIDE RECORDS SUMMARY | 2025-03-10 04:57 | XMS_ITS | Encounter Summary ---
Author Organization [facility] Address [address] [place] [address] Care Team Providers Care Stratigraphy Teacher Name Role Phone NazaninNano Unavailable Encounter Details DateTypeDepartmentCare Team (Latest Contact Info)Lrwcgnknazj57/19/2025Bamboo flowsheet [facility] [address] [place] [phone] Robert Marrero DO [address] [facility] [address] [place] [id number] Social History Tobacco UseTypesPacks/DayYears UsedDateSmoking Tobacco: NeverSmokeless Tobacco: NeverAlcohol UseStandard Drinks/WeekCommentsNot Currently3 (1 standard drink = 0.6 oz pure alcohol)PHQ-2AnswerDate RecordedPatient Health Questionnaire-2 Score 608Estimated Date of JbtagqfqOkzkhnexHwc44/07/2025Based on UltrasoundSex and Gender InformationValueDate RecordedSex Assigned at Roudws1205/01/2023 12:34 PM ESTLegal WylMwfmwg20/15/2023 6:38 PM EDTGender UplwgkerLkzkvd34/24/2024 12:34 PM ESTSexual LphnmgibvtkGozhjvai10/24/2024 12:34 PM ESTdocumented as of this encounter Plan of Treatment Not on file documented as of this encounter Visit Diagnoses Not on filedocumented in this encounter Additional Health Concerns AssessmentNoted TimePHQ-9 Depression Total Score: 11:27 AM EDT documented as of this encounter Care Teams Team MemberRelationshipSpecialtyStart DateEnd Date Nano Back PA [address] [place] [address] [place] [address] PCP - [facility]01/07/24documented as of this encounter
--- OUTSIDE RECORDS SUMMARY | 2025-03-10 04:57 | XMS_ITS | Encounter Summary ---
Author Organization [facility] Address [address] [place] [address] Care Team Providers Care Assistant Front Office Manager Name Role Phone Nano Back Unavailable Reason for Referral * Medications - AuthorizedSpecialtyDiagnoses / ProceduresReferred By Contact Referred To Contact Diagnoses H/O depression, currently ([facility]) Anxiety, generalized PTSD (post-traumatic stress disorder) Robert Marrero DO [address] [place] [address] Phone: tel: fax: Referral IDStatusReasonStart DateExpiration DateVisits RequestedVisits [id number]/26/202512/ Encounter Details DateTypeDepartmentCare Team (Latest Contact Info)Rppiiqknokc25/25/2025Telephone [facility] [address] [place] [phone] Rekha Osman LPN Social History Tobacco UseTypesPacks/DayYears UsedDateSmoking Tobacco: NeverSmokeless Tobacco: NeverAlcohol UseStandard Drinks/WeekCommentsNot Currently3 (1 standard drink = 0.6 oz pure alcohol)PHQ-2AnswerDate RecordedPatient Health Questionnaire-2 Score 608/18/2025Estimated Date of CctmcuqdPoifxfdnYws34/07/2025Based on UltrasoundSex and Gender InformationValueDate RecordedSex Assigned at Xtjgxm1505/01/2023 12:34 PM ESTLegal IcuNsxmvi02/15/2023 6:38 PM EDTGender HjyanfaiQmathp78/24/2024 12:34 PM ESTSexual FflvtthcuhsHsplzose43/24/2024 12:34 PM ESTdocumented as of this encounter Miscellaneous Notes * Telephone Encounter - Rekha Osman LPN - 03/02/2025 1:31 PM EST Please order or prescribe Zurzuvae documented in this encounter Plan of Treatment Not on file documented as of this encounter Visit Diagnoses Diagnosis H/O depression, currently ([facility]) Anxiety, generalized PTSD (post-traumatic stress disorder) Posttraumatic stress disorder documented in this encounter Additional Health Concerns AssessmentNoted TimePHQ-9 Depression Total Score: 11:27 AM EDT documented as of this encounter Care Teams Team MemberRelationshipSpecialtyStart DateEnd Date Nano Back PA [address] [place] [address] [place] [address] PCP - [facility]01/07/24documented as of this encounter
--- OUTSIDE RECORDS SUMMARY | 2025-03-10 04:57 | XMS_ITS | Encounter Summary ---
Author Organization [facility] Address [address] [place] [address] Care Team Providers Care Library Cataloging Technician Name Role Phone NazaninNano Unavailable Encounter Details DateTypeDepartmentCare Team (Latest Contact Info)Dxjyrixrrjl65/25/2025Bamboo flowsheet [facility] [address] [place] [phone] Robert Marrero DO [address] [facility] [address] [place] [id number] Social History Tobacco UseTypesPacks/DayYears UsedDateSmoking Tobacco: NeverSmokeless Tobacco: NeverAlcohol UseStandard Drinks/WeekCommentsNot Currently3 (1 standard drink = 0.6 oz pure alcohol)PHQ-2AnswerDate RecordedPatient Health Questionnaire-2 Score 608Estimated Date of OpjbpsoxXapydzajYom29/07/2025Based on UltrasoundSex and Gender InformationValueDate RecordedSex Assigned at Jmpyde8705/01/2023 12:34 PM ESTLegal QflYbpmop28/15/2023 6:38 PM EDTGender UxnhqmbyOgilpn37/24/2024 12:34 PM ESTSexual GsqejhvjcuwWerwsafl15/24/2024 12:34 PM ESTdocumented as of this encounter Plan of Treatment Not on file documented as of this encounter Visit Diagnoses Not on filedocumented in this encounter Additional Health Concerns AssessmentNoted TimePHQ-9 Depression Total Score: 11:27 AM EDT documented as of this encounter Care Teams Team MemberRelationshipSpecialtyStart DateEnd Date Nano Back PA [address] [place] [address] [place] [address] PCP - [facility]01/07/24documented as of this encounter
--- OUTSIDE RECORDS SUMMARY | 2025-03-10 04:57 | XMS_ITS | Clinical Summary ---
Author Organization [facility] Address [address] [place] [address] Care Team Providers Care Control Officer Name Role Phone Nano Back Unavailable Allergies Active AllergyReactionsCriticalityNoted ZqupUhdsfmbaGcczfnkwotlgCiwaiy96/14/2022 Other Reaction(s): Nausea And Vomiting ELEVATED HEART RATE Macrolides And WwewifkitEqhjpev70/23/2024MetronidazoleGI intoleranceHigh 07/09/2023 Other Reaction(s): Vomiting Other Reaction(s): Nausea And Vomiting ELEVATED HEART RATE Rcjmvrgjvmik01/12/2025Wound Dressing VwrlxohqJgvnyJmh55/20/2023 PEELING SKIN Medications MedicationSigDispense QuantityRefillsLast FilledStart DateEnd DateStatus 27-1 MG tablet Take 1 tablet by mouth Daily2Active escitalopram (Lexapro) 20 MG tablet Indications:Anxiety, generalizedTake 1 tablet (20 mg) by mouth Daily 30 tablet tive Zuranolone (Zurzuvae) 25 MG capsule Indications: DepressionTake 2 tablets by mouth at bedtime for 14 days 28 capsule 5Active escitalopram (Lexapro) 20 MG tablet Indications:Anxiety, generalizedTake 1 tablet (20 mg) by mouth Daily 30 tablet Discontinued(Reorder) Active Problems ProblemNoted DateDiagnosed Date38 weeks gestation of ([facility] 08/22/2024Estimated Date of UsqqnbslLbjgbameTfd06/07/2025Based on Ultrasound Encounters DateTypeDepartmentCare PoyuCoiyqretlgw92/26/2025Patient Outreach [facility] [place] 2[place] [address] Nano Melendez, ASSEMBLY ROOM SUPERVISOR 03/02/2025 11:10 AM ESTRoutine [facility] [address] [place] [address] Robert Marrero, 38 weeks gestation of ([facility]); Third trimester ([facility]); Anxiety, txqagclfyfd02/25/2025Telephone [facility] Adon[facility] O[address]ATASHA [address] [place] [address] Rekha Osman, ASSEMBLY ROOM SUPERVISOR 5Bamboo flowsheet [facility] [address] [address] [facility] [place] [address] Robert Marrero, 02/24/2025 2:00 PM ESTRoutine [facility] [address] [place] [address] Robert Marrero, Third trimester ([facility]); 37 weeks gestation of ([facility])02/24/2025amboo flowsheet [facility] [address] [place] [address] Robert Marrero, 02/17/2025 1:00 PM ESTRoutine [facility] OBLEAHN [address] [place] [address] Robert Marrero, Third trimester ([facility]); 36 weeks gestation of ([facility])5Clinisync Result Encounter [facility] External Department Unsolicited Robert Marrero, 5Bamboo flowsheet [facility] [address] [place] [address] JanesRobert, DO 02/02/2025 10:20 AM EDTRoutine [facility] Denis [facility] [address] Nano Back PA Third trimester ([facility] 34 weeks gestation of ([facility])02/02/2025amboo flowsheet [facility] Denis [facility] [address] Nano Back PA 02/01/2025Patient Outreach [facility] [place] [address] [place] [address] Nano Melendez LPN 01/25/2025linisync Result Encounter [facility]OM[facility] External Department Unsolicited JanesRobert, 01/19/2025 11:20 AM EDTRoutine [facility] Denis [facility] [place] [address] Nano Back PA Third trimester ([facility]); 32 weeks gestation of ([facility]); Hematuria, unspecified type01/19/2025 10:30 AM EDTAncillary Procedure [facility] [address] [address] [place] [address] [place] [address] size inconsistent with dates ([facility])01/04/2025 9:30 AM EDTRoutine [facility] Denis [facility] [place] [address] Catrina Samuels NP size inconsistent with dates ([facility]) (Primary Dx); 30 weeks gestation of ([facility]); Third trimester ([facility]); History of miscarriage; Bipolar 1 disorder, depressed (HCC); Anxiety, qhxticgnbrf53/29/2025amboo flowsheet [facility] Denis [facility] [address] Catrina Samuels NP 01/01/2025Patient Outreach [facility] [address] [place] [address] Nano Melendez LPN 12/21/2024 10:30 AM EDTRoutine [facility] [address] [address] [place] [address] [place] [address] Nano Back PA Third trimester ([facility]); 28 weeks gestation of ([facility])12/21/2024amboo flowsheet [facility] [address] [address] [place] [address] [place] [address] Nano Back PA 12/11/2024Telephone [facility] Rochelle Parksumit [address] [place] [address] Zaida Tavares MA 12/09/2024linisync Result Encounter [facility]OMS External Department Unsolicited Robert Marrero DO from Last 3 Months Family History Medical HistoryRelationNameCommentsNo Known ProblemsFatherCancerMotherShauna CancerMother's SisterRelationNameStatusCommentsFatherAliveMotherShaunaMother's Sister Social History Tobacco UseTypesPacks/DayYears UsedDateSmoking Tobacco: NeverSmokeless Tobacco: Never Tobacco Cessation:Counseling Given: Not Answered Alcohol UseStandard Drinks/WeekCommentsNot Currently3 (1 standard drink = 0.6 oz pure alcohol)PHQ-2AnswerDate RecordedPatient Health Questionnaire-2 Score6 11/23/2024Estimated Date of XzxkkvkaBbjuwstiJzp05/07/2025ased on UltrasoundSex and Gender InformationValueDate RecordedSex Assigned at Ixasdw6905/01/2023 12:34 PM ESTLegal IdoEipeft61/15/2023 6:38 PM EDTGender AjkqyzzbBzwwys67/24/2024 12:34 PM ESTSexual AikgmhtzmypNatrorlp90/24/2024 12:34 PM EST Last Filed Vital Signs Vital SignReadingTime TakenCommentsBlood Ucyfbcdu295/6803/02/2025 11:38 AM EST Pulse--Temperature--Respiratory Rate--Oxygen Saturation--Inhaled Oxygen Concentration--Peoxlx019 kg (267 lb)03/02/2025 11:38 AM WAUHzqexq618.6 cm (5' 6 )08/08/2022 12:00 PM EDTBody Mass Index43.0908/08/2022 12:00 PM EDT Plan of Treatment Health MaintenanceDue DateLast DoneCommentsPneumococcal Vaccine: Pediatrics (0 to 5 Years) and At-Risk Patients (6 to 64 Years) (1 of 2 - PCV)2020OVID- 19 Vaccine (1 - 2024- season)2024Influenza Vaccine (#1)2024 Procedures Procedure NamePriorityDate/TimeAssociated DiagnosisCommentsPOCT URINALYSIS GRQAKDVVDyogeiz04/25/2025 11:38 AM EST 38 weeks gestation of ([facility]) POCT URINALYSIS TBKJEREWNkuazrd99/19/2025 2:30 PM EST 37 weeks gestation of ([facility]) POCT URINALYSIS GQKTNUKDBoztriy69/12/2025 1:25 PM EST Third trimester ([facility]) STREP GP B CULTURE+MOCHPorxeln41/12/2025 1:15 PM EST POCT URINALYSIS BREYEYTOBxxbikh42/28/2025 10:55 AM EDT Third trimester ([facility]) TBH URINE MICROSCOPIC LDEBZcvirwc85/20/2025 6:10 PM EDT TBH UA (CLEAN/CATCH) SATELLITE DISH TECHNICIAN/MICRO IF IND.Pebypkb0101/25/2025 6:10 PM EDT POCT URINALYSIS CZQZRKIAJzswiyh98/14/2025 11:32 AM EDT 32 weeks gestation of ([facility]) US OB FOLLOW UP TRANSABDOMINAL CSIPVRSKVngiwyb56/14/2025 11:14 AM EDT size inconsistent with dates ([facility]) URINARY TRACT INFECTION (HTRX)Mviciul0101/19/2025 12:00 AM EDT POCT URINALYSIS OJKWSMKHRvckmbj19/29/2025 9:49 AM EDT 30 weeks gestation of ([facility]) Third trimester ([facility]) POCT URINALYSIS LGSJOJXZQtjlgzo76/15/2025 10:42 AM EDT Third trimester ([facility]) GLUCOSE 1 MHOXWexhcoy81/03/2025 10:28 AM EDT ALL CBC WITH AUTO KXIQOjoqcpy13/03/2025 10:28 AM EDT from Last 3 Months Results * (ABNORMAL) POCT urinalysis dipstick manually resulted (03/02/2025 11:38 AM EST) Only the most recent of7 resultswithin the time period is included. ComponentValueRef RangeTest MethodAnalysis TimePerformed AtPathologist Signature Color, UAYellowClarity, UAClearGlucose, UANegativeNegative - 2000(110) ++++ mg/dLBilirubin, UANegativeNegative - 4(70) +++ mg/dLKetones, UANegativeNegative - 160(16) ++++ mg/dLSpec Grav, UA1.0301 - 1.03Blood, UANegativeNegative - 50 Villa/mcLpH, UA6.05 - 9Protein, UA1+Negative - 2000(20) ++++ mg/dLUrobilinogen, UA 1.00.2 - 12 mg/dLLeukocytes, UA1+Negative - 500+++ Pierre/mcLNitrite, UANegative Negative - PositiveSpecimen (Source)Anatomical Location / LateralityCollection Method / VolumeCollection TimeReceived TrtoOrmcf82/25/2025 11:38 AM EST Narrative Authorizing ProviderResult TypeResult StatusCorey Janes DOPOINT OF CARE TEST ENTER/EDIT ORDERABLESFinal Result * STREP GP B CULTURE+RFLX (02/17/2025 1:15 PM EST)ComponentValueRef RangeTest MethodAnalysis TimePerformed AtPathologist SignatureSTREP GP B CULTURE+RFLX ??Strep Gp B Culture+Rflx TBHSTREP GP B CULTURE+RFLXNegativeTBHSTREP GP B CULTURE+RFLXCenters for Disease Control and Prevention (CDC) andTBHSTREP GP B CULTURE+RFLXAmerican Congress of Obstetricians and GynecologistsTBHSTREP GP B CULTURE+RFLX(ACOG) guidelines for prevention of group BTBHSTREP GP B CULTURE+RFLXstreptococcal (GBS) disease specify co-collection ofTBHSTREP GP B CULTURE+RFLXa vaginal and rectal swab specimen to maximizeTBHSTREP GP B CULTURE+RFLXsensitivity of GBS detection. Per the CDC and ACOG,TBHSTREP GP B CULTURE+RFLXswabbing both the lower vagina and rectumTBHSTREP GP B CULTURE+RFLXsubstantially increases the yield of detectionTBHSTREP GP B CULTURE+RFLXcompared with sampling the vagina alone.TBH STREP GP B CULTURE+RFLXPenicillin G, ampicillin, or cefazolin are indicatedTBH STREP GP B CULTURE+RFLXfor intrapartum prophylaxis of GBSTBHSTREP GP B CULTURE+RFLXcolonization. Reflex susceptibility testing should beTBHSTREP GP B CULTURE+RFLXperformed prior to use of clindamycin only on GBSTBHSTREP GP B CULTURE+RFLXisolates from penicillin-allergic women who areTBHSTREP GP B CULTURE+RFLXconsidered a high risk for anaphylaxis. Treatment withTBHSTREP GP B CULTURE+RFLXvancomycin without additional testing is warranted ifTBHSTREP GP B CULTURE+RFLXresistance to clindamycin is noted.TBHSTREP GP B CULTURE+RFLX Performed at: - [facility]TBH[facility] GP B CULTURE+[id number] [place], [place] [id number] GP B CULTURE+RFLXLab Director: Yvan Bolton PhD, Phone: [phone] (Source)Anatomical Location / Laterality Collection Method / VolumeCollection TimeReceived Time02/17/2025 1:15 PM EST 02/17/2025 8:35 PM EST Narrative RASHAUN - 02/22/2025 3:08 PM EST Authorizing ProviderResult TypeResult StatusCorey Janes DOLAB BLOOD ORDERABLES Final ResultPerforming OrganizationAddressCity/State/ZIP CodePhone Number [facility] * (ABNORMAL) [facility] URINE MICROSCOPIC ONLY (01/25/2025 6:10 PM EDT)ComponentValue Ref RangeTest MethodAnalysis TimePerformed AtPathologist SignatureTBH WBC2-5 (A)NONE SEEN #/HPFTBHTBH AZD62-50(A)0 - 2 #/HPFTBHBACTERIA URINETRACE(A)NONE SEEN #/HPFTBHMUCUS URINESMALL(A)NONE SEENTBHSQUAMOUS EPITHELIAL CELL URINEFEW (A)NONE/RARE #/LPFTBHCRYSTALS SEEN?Seen(A)None Seen #/HPFTBHTBH CALCIUM OXALATE CRYSTALS URINEMODERATETBHCAST SEEN?NONE SEENNONE SEEN #/LPFTBHURINE CULTURE INDICATEDNOTBHSpecimen (Source)Anatomical Location / Laterality Collection Method / VolumeCollection TimeReceived Time01/25/2025 6:10 PM EDT 01/25/2025 6:18 PM EDT Narrative RASHAUN - 01/25/2025 6:31 PM EDT Authorizing ProviderResult TypeResult StatusCorey Janes DOCLINISYNCFinal Result Performing OrganizationAddressty/State/ZIP CodePhone Number [facility] * (ABNORMAL) TBH UA (CLEAN/CATCH) SATELLITE DISH TECHNICIAN/MICRO IF IND. (01/25/2025 6:10 PM EDT) ComponentValueRef [...] DOCLINISYNCFinal Result Performing OrganizationAddressCity/State/ZIP CodePhone Number [facility] * US OB follow up transabdominal approach (01/19/2025 11:14 [...] 14, 2025. ?? The current estimated weight qv6317 grams (4 pounds, 4 ounces). ?? Procedure [...] delivery of March. The current estimated weight tl6599 grams (4 pounds, 4ounces). IMPRESSION: Single, live intrauterine , current sonographic age of 32 weeksand 2 days, with an estimated date of delivery of March 14, 2025 (priorEDD March 19, 2025). * Estimated Weight (g) by Percentile is based upon an accurateestimated age based on last menstrual period. TRANSCRIBED BY: ELECTRONICALLY SIGNED BY: Dion Iglesias MD Authorizing ProviderResult TypeResult StatusCatrina Samuels NPIMG US PROCEDURESFinal Result * URINARY TRACT INFECTION (HTRX) (01/19/2025 12:00 AM EDT)ComponentValueRef RangeTest MethodAnalysis TimePerformed AtPathologist SignatureACINKOJO SANTOSII019.961 - 24.689 ppm01/20/2025 8:26 AM EDTHealthTrackRx at [facility] ACINETOBACTER BAUMANIINot Pdmrhshw25.961 - 24.689 ppm01/20/2025 8:26 AM EDT [facility] LabPortCITROBACTER QYRQBEEK559.000 - 32.015 ppm01/20/2025 8:26 AM EDTHealthTrackRx at LabPortCITROBACTER FREUNDIINot Bdmenydo37.000 - 32.015 ppm01/20/2025 8:26 AM EDTHealthTrackRx at LabPortENTEROBACTER AEROGENES, UHUQRCQ830.000 - 32.290 ppm01/20/2025 8:26 AM EDTHealthTrackRx at LabPortENTEROBACTER AEROGENES, CLOACAENot Xgyjztae43.000 - 32.290 ppm 01/20/2025 8:26 AM EDTHealthTrackRx at LabPortENTEROCOCCUS FAECALIS, FAECIUM0 26.000 - 33.043 ppm01/20/2025 8:26 AM EDTHealthTrackRx at LabPortENTEROCOCCUS FAECALIS, FAECIUMNot Qauwhlpb53.000 - 33.043 ppm01/20/2025 8:26 AM EDT [facility] at LabPortESCHERICHIA ZQOR567.000 - 28.500 ppm01/20/2025 8:26 AM EDTHealthTrackRx at LabPortESCHERICHIA COLINot Rmsomdel03.000 - 28.500 ppm 01/20/2025 8:26 AM EDTHealthTrackRx at LabPortKLEBSIELLA PNEUMONIAE, OXYTOCA0 23.000 - 31.865 ppm01/20/2025 8:26 AM EDTHealthTrackRx at LabPortKLEBSIELLA PNEUMONIAE, OXYTOCANot Vtvvuxfa83.000 - 31.865 ppm01/20/2025 8:26 AM EDT [facility] at LabPortMORGANELLA TWRHJLJQ557.961 - 24.689 ppm01/20/2025 8:26 AM EDTHealthTrackRx at LabPortMORGANELLA MORGANIINot Bbkaapoo58.961 - 24.689 ppm01/20/2025 8:26 AM EDTHealthTrackRx at LabPortPROTEUS MIRABILIS, VULGARIS0 23.000 - 28.500 ppm01/20/2025 8:26 AM EDTHealthTrackRx at LabPortPROTEUS MIRABILIS, VULGARISNot Zcjtgbtu54.000 - 28.500 ppm01/20/2025 8:26 AM EDT [facility] at LabPortPSEUDOMONAS NOTNLIMFLM873.000 - 31.801 ppm01/20/2025 8:26 AM EDTHealthTrackRx at LabPortPSEUDOMONAS AERUGINOSANot Mlfknxwn71.000 - 31.801 ppm01/20/2025 8:26 AM EDTHealthTrackRx at LabPortSTAPHYLOCOCCUS AUREUS0 26.000 - 31.595 ppm01/20/2025 8:26 AM EDTHealthTrackRx at [facility] STAPHYLOCOCCUS AUREUSNot Gqervxdp71.000 - 31.595 ppm01/20/2025 8:26 AM EDT [facility] at LabPortSTREPTOCOCCUS AGALACTIAE (GROUP B STREP)026.000 - 32.435 ppm01/20/2025 8:26 AM EDTHealthTrackRx at LabPortSTREPTOCOCCUS AGALACTIAE (GROUP B STREP)Not Ggiqjwys29.000 - 32.435 ppm01/20/2025 8:26 AM EDTHealthTrackRx at LabPortCANDIDA ALBICANS, PARAPSILOSIS, YZYARFSEGL092.000 - 30.347 ppm01/20/2025 8:26 AM EDTHealthTrackRx at LabPortCANDIDA ALBICANS, PARAPSILOSIS, TROPICALISNot Xcdjarwz77.000 - 30.347 ppm01/20/2025 8:26 AM EDT [facility] LabPortCANDIDA QXCLFECU962.000 - 31.618 ppm01/20/2025 8:26 AM EDTHealthTrackRx at LabPortCANDIDA GLABRATANot Mctdddwy41.000 - 31.618 ppm 01/20/2025 8:26 AM EDTHealthTrackRx at LabPortCANDIDA TOJXFS373.000 - 30.873 ppm01/20/2025 8:26 AM EDTHealthTrackRx at LabPortCANDIDA KRUSEINot Detected 23.000 - 30.873 ppm01/20/2025 8:26 AM EDTHealth[facility]Rx at [facility] HospitalSERRATIA PSQJLFRTPL249.000 - 31.581 ppm01/20/2025 8:26 AM EDTHealthTrackRx at [facility] SERRATIA MARCESCENSNot Aqrrsvwu56.000 - 31.581 ppm01/20/2025 8:26 AM EDT [facility] HospitalSTREPTOCOCCUS PYOGENES (GROUP A STREP)019.961 - 24.689 ppm01/20/2025 8:26 AM EDTHealthTrackRx at [facility] HospitalSTREPTOCOCCUS PYOGENES (GROUP A STREP)Not Shdivynm73.961 - 24.689 ppm01/20/2025 8:26 AM EDTHealthTrackRx at [facility] HospitalSTAPHYLOCOCCUS EPIDERMIDIS, HAEMOLYTICUS, LUGDUNENSIS, SAPROPHYTICUS (ZKSAT231.961 - 24.689 ppm01/20/2025 8:26 AM EDTHealthTrackRx at [facility] STAPHYLOCOCCUS EPIDERMIDIS, HAEMOLYTICUS, LUGDUNENSIS, SAPROPHYTICUS (URINANot Xqaixmpv03.961 - 24.689 ppm01/20/2025 8:26 AM EDTHealthTrackRx at [facility] STAPHYLOCOCCUS EPIDERMIDIS, HAEMOLYTICUS, LUGDUNENSIS, SAPROPHYTICUS (URINA0 19.961 - 24.689 ppm01/20/2025 8:26 AM EDTHealth[facility]Rx at [facility] STAPHYLOCOCCUS EPIDERMIDIS, HAEMOLYTICUS, LUGDUNENSIS, SAPROPHYTICUS (URINANot Kgywghdw20.961 - 24.689 ppm01/20/2025 8:26 AM EDTHealthTrackRx at [facility] Specimen (Source)Anatomical Location / LateralityCollection Method / Volume Collection TimeReceived XtpxWdoqd24 1:29 AM EDT Narrative Authorizing ProviderResult TypeResult StatusAmy Nazanin ALMONTE BLOOD ORDERABLES Final ResultPerforming OrganizationAddressCity/State/ZIP CodePhone Number [facility] [address] [address] * GLUCOSE 1 HOUR (12/09/2024 10:28 AM EDT)ComponentValueRef RangeTest Method Analysis TimePerformed AtPathologist SignatureGLUCOSE 1 HOUR89<130 mg/dLTBH Specimen (Source)Anatomical Location / LateralityCollection Method / Volume Collection TimeReceived Time12/09/2024 10:28 AM EDT12/09/2024 10:38 AM EDT Narrative CLINISYNC - 12/09/2024 11:50 AM EDT Authorizing ProviderResult TypeResult StatusCorey Janes DOLAB BLOOD ORDERABLES Final ResultPerforming OrganizationAddressCity/State/ZIP CodePhone Number * (ABNORMAL) ALL CBC WITH AUTO DIFF (12/09/2024 10:28 AM EDT)ComponentValueRef RangeTest MethodAnalysis TimePerformed AtPathologist SignatureTBH WBC14.0(H) 4.0 - 11.0 10 3/uLTBHTBH RBC4.384.20 - 5.40 10 6/uLTBHTBH HGB11.9(L)12.0 - 16.0 g/dLTBHTBH HCT36.736.0 - 48.0 %TBHTBH MCV83.881.0 - 99.0 fLTBHTBH MCH27.2 26.7 - 34.0 pgTBHTBH MCHC32.429.9 - 35.2 g/dLTBHTBH RDW12.611.0 - 15.0 %TBHTBH ZET841431 - 450 10 3/uLTBHTBH MPV10.19.5 - 13.5 [...] Result Performing OrganizationAddressCity/State/ZIP CodePhone Number CLINISYNC [facility] from Last 3 Months Insurance Care Teams Team MemberRelationshipSpecialtyStart DateEnd Date Nano Back PA [address] [place] [address] [place] [address] [facility]01/07/24
--- OUTSIDE RECORDS SUMMARY | 2025-03-10 04:57 | XMS_ITS | CCD ---
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 Name Role Phone NON STAFF Primary Care Provider LAURA Kraft Emergency Provider NICOLE Ricci Emergency Provider [phone] DAPHNIE ., DR ALEXANDRE Attending Unavailabl e KARASIK ., DR ALEXANDRE Admitting Unavailabl [facility] Unava ilable KARASIK ., DR ALEXANDRE Consulting Unavailabl e LAVINIA, DR CHRISTIAN Doyle Consulting Unavailable KARASIK ., DR ALEXANDRE Consulting Unavailabl e KARASIK ., DR ALEXANDRE Attending Unavailabl e [facility] Unava ilable KARASIK ., DR ALEXANDRE Admitting Unavailabl e ANGELA SCOTT Consulting Unavailable DINA, DR ANA Dennis Attending Unavailable DINA, DR ANA Dennis Admitting [facility] Unava ilable DINA, DR ANA Dennis Consulting Unavailable BOATENG ., MR CUADRA Consulting Unavailable KARASIK ., DR ALEXANDRE Attending Unavailabl [facility] Unava ilable KARASIK ., DR ALEXANDRE Admitting Unavailabl e KARASIK ., DR ALEXANDRE Attending Unavailabl e [facility] Unava ilable KARASIK ., DR ALEXANDRE Admitting Unavailabl e KARASIK ., DR ALEXANDRE Consulting Unavailabl e JOANNE HUDSON Consulting Unavailable ENIO ATKINS Consulting Unavailable [facility] Unava ilable KARASIK ., DR [...] KARASIK ., DR ALEXANDRE Attending Unavailabl e [facility] Primary Care Unava ilable KARASIK ., DR ALEXANDRE Admitting Unavailabl e KARASIK ., DR ALEXANDRE Consulting Unavailabl e ZIEBANGELA CARMICHAEL Consulting Unavailable KARASIK ., DR ALEXANDRE Attending Unavailabl e KARASIK ., DR ALEXANDRE Admitting Unavailabl e [facility] Primary Care Unava ilable KARASIK ., DR ALEXANDRE Consulting Unavailabl e KARASIK ., DR ALEXANDRE Consulting Unavailabl e KARASIK ., DR ALEXANDRE Attending Unavailabl e [facility] Primary Care Unava ilable KARASIK ., DR ALEXANDRE Admitting Unavailabl e WEST, DR CHRISTIAN Doyle Consulting Unavailable REQUEST, DR AMBER ESTRELLA Consulting Unavaila ble Unavailable Primary Care Provider [facility] Nano Foster Unavailable Services, [facility] Primary Care Provider JOHN SUÁREZ Admitting Unavailable JOHN SUÁREZ Attending Unavailable SERVICES, [facility] Primary Care Unava ilable SERVICES, [facility] Primary Care Unava ilable ASHELY AYALA Attending Unavailable SERVICES, [facility] Primary Care Unava ilable ANGELA GONGORA Attending Unavailable SERVICES, [facility] Primary Care Unava ilable LEIGH SMALLS Attending Unavailable SERVICES, [facility] Primary Care Unava ilable JULISA LAZO Attending Unavailable SERVICES, [facility] Primary Care Unava ilable COLE BLACKMON Attending Unavailab le SERVICES, [facility] Primary Care Unava ilable Services, [facility] Primary Care Provider ROBERT MARRERO Primary Care [...] Allergen(s)Allergy TypeDate of OnsetReaction(s) Facility (1 source)AlfentanilDrug [facility]ergyFisher[facility] Repository (3 sources)Azithromycin; Translations: [AZITHROMYCIN]Drug Qedaqou89-02-6287Rva [facility] Repository (20 sources)AzithromycinDrug Tnhuzvs29-14-1970Brqjgl And VomitingNOMS Healthcare Work Phone: (20 sources)Macrolides And KetolidesDrug Ndbyxxk74-94-0603MdykdmiROGR Healthcare (20 sources)Wound Dressing AdhesiveDrug Bkotwjr91-59-5742[facility] (20 sources)metroNIDAZOLE; Translations: [METRONIDAZOLE]Drug Tsednvk68-61-5393EO intolerance, Nausea And VomitingNOMS Healthcare Work Phone: (6 sources)Adhesive agent; Translations: [ADHESIVE]Propensity to adverse reactions to mbfp97-25-9296[facility] (1 source)Adhesive agentPropensity to adverse reactions to wccu98-11-5419Iubdw [facility] HospitaledicGil[facility] (1 source)Adhesive bandage; Translations: [Adhesive Bandage]Propensity to adverse reactions (disorder)[facility] Repository (1 source)Azithromycin; Translations: [Zithromax]Drug AllergyChildren'S Hospital Of [facility] Repository (1 source)metroNIDAZOLE; Translations: [Flagyl]Drug AllergyChildren'S Hospital [facility] Repository (1 source)Promethazine; Translations: [Phenergan]Drug AllergyChildren'S [facility] Repository Medications Current Medications MedicationDrug Class(es)DatesSig (Normalized)Sig (Original)[id number] 200 actuat albuterol 0.09 mg/actuat metered dose [...] 100 mg oral capsule (1 source)Non-narcotic AntitussiveStart: 89-28-4273bedx 1 capsule by mouth three times daily [...] mg oral capsule (3 sources)Start: 09-07-2024 End: 79-47-5035ooyj 1 capsule by mouth in the morningdocusate sodium (Colace) 100 MG capsule Indications: Constipation, unspecified constipation type Take 1 capsule (100 mg) by mouth in the morning and 1 capsule (100 mg) before bedtime. Do all this for10 days. 20 capsule 09/07/2024 09/17/2024 Activedoxylamine succinate 25 mg oral tablet (3 sources)Start: 04-05-2023 End: 18-00-4641kvwz 1 tablet by mouth once daily as needed for nauseadoxylamine (UNISOM) 25 mg tablet Indications: Nausea and vomiting during Take 1 tablet (25 mg total) by mouth nightly as needed for sleep or nausea for up to 30 days. 30 tablet 2 / Activeescitalopram 20 mg oral tablet (19 sources)Serotonin Reuptake InhibitorStart: 01-04-2025 End: 40-51-3788fmra 1 tablet by mouth once dailyescitalopram (Lexapro) 20 MG tablet Indications: Anxiety, generalized Take 1 tablet (20 mg) by mouth Daily 30 tablet 1 01/04/2025 ActiveStart: 11-23-2024 End: 05-92-9944ptyv 1 tablet by mouth once dailyescitalopram (Lexapro) 10 MG tablet Indications: Episode of recurrent major depressive disorder, unspecified depression episode severity , Bipolar 1 disorder, depressed (HCC) , Anxiety, generalized ,PTSD (post-traumatic stress disorder) Take 1 tablet (10 mg) by mouth Daily 30 tablet 1 11/23/2024 01/04/2025 Discontinuedfolic acid 1 mg oral tablet (7 sources)Start: 84-62-6346fbrj 1 tablet by mouth in the morningfolic acid (FOLVITE) 1 mg tablet Indications: Folic acid deficiency Take 1 tablet (1 mg total) by mouth in the morning. 30 tablet 12 03/06/2023 Activemetoclopramide 10 mg oral tablet (20 sources)Dopamine-2 Receptor AntagonistStart: 07-20-2024 End: 11-72-8293zzjyeocvnllfhe (Reglan) 10 MG tablet Indications: Nausea and vomiting in ([facility]) Take 1tablet (10 mg) by mouth in the morning and 1 tablet (10 mg) at noon and 1 tablet (10 mg) in the evening. Take before meals. Take 1 tablet by mouth 30 minutes prior to meals 3 times daily as needed for nausea. 90 tablet 09/08/2024 11/23/2024 Discontinuednaproxen 500 mg oral tablet (1 source)Nonsteroidal Anti-inflammatory DrugStart: 56-90-3728wrzs 1 tablet by mouth twice dailyNaproxen (Naprosyn) 500 mg tablet Active 500 MG PO Twice daily May 15, 2021 9:24pmondansetron 4 mg disintegrating oral tablet (11 sources)Serotonin-3 Receptor AntagonistStart: 11-21-2023 End: 01-11-7398kwsk 1 tablet by mouth every six hours for nauseaondansetron ODT (Zofran-ODT) 4 MG disintegrating tablet Indications: Nausea and vomiting, unspecified vomiting type Take 1 tablet (4 mg) by mouth every 6 (six) hours if needed for nausea or vomiting 30 tablet 2 11/21/2023 01/14/2024 Discontinued Start: 04-23-2023 End: 21-57-3956jihn 1 tablet by mouth every six hours [...] 0 Active 27-1 MG tablet (20 sources)Start: 54-59-5529nces 1 tablet by mouth once dailyPrenatal 27-1 MG tablet Take 1 tablet by mouth Daily 03/13/2022 Activeprochlorperazine 25 mg rectal suppository (1 source)PhenothiazineStart: 89-51-7673llze 25 mg rectal route every twelve hours [...] 200 MG suppository (6 sources)Start: 06-30-2024 End: 58-42-5230Mgebccpuwzkw 200 MG suppository Indications: History of miscarriage Insert 200 mg into the vagina at bedtime Insert suppository vaginally every night at bedtime until 12 weeks gestation 30 suppository 2 06/30/2024 07/30/2024 ActiveStart: 05-13-2024 End: 37-40-3134Bnviagbaopgq 200 MG suppository Indications: History of miscarriage Insert 200 mg into the vagina at bedtime Insert suppository vaginally every night at bedtime until 12 weeks gestation 30 suppository 2 05/13/2024 06/12/2024 ActiveStart: 54-39-7370Nunbjhtopkuq 200 MG suppository Indications: H/O miscarriage, currently , first trimester Insert 1 suppository into the vagina at bedtime 30 suppository 3 05/02/2023 Active pyridoxine hydrochloride 25 mg oral tablet (5 sources)Start: 04-05-2023 End: 00-77-4170iagp 1 tablet by mouth four times daily at mealtimepyridoxine, vitamin B6, (B-6) 25 mg tablet Indications: Nausea and vomiting during Take 1tablet (25 mg total) by mouth 4 (four) times a day with meals and nightly for 30 days. 150 tablet 05/05/2023 Active Problems Active Problems Problem ClassificationProblemDateDocumented DateEpisodic/ChronicAbdominal pain (6 sources)Pelvic and perineal pain; Translations: [Abdominal pain]Onset: 60-91-3857IkgdojabKxqtvis disorders (6 sources)Generalized anxiety disorder; Translations: [Generalized anxiety disorder]66-02-8679InbepocZktczfmolr associated with dizziness or vertigo (5 sources)Dizziness; Translations: [Dizziness and giddiness]Onset: 10-15-2024 91-07-5248WdwbwfrdUdexgxbypmjem symptoms and ill-defined conditions (2 sources)Blood in urine; Translations: [Hematuria, unspecified]01-19-2025 EpisodicImmunizations and screening for infectious disease (3 sources)Contact with and (suspected) exposure to infections with a predominantly sexual mode of transmission; Translations: [Exposure to sexually transmissible disorder]Onset: 115015-70-1334TlmgzyejNfkltkzdt disorders (4 sources)Irregular menstruation, unspecified; Translations: [Missed period] Onset: 53-55-9569MppvnhgRitb disorders (6 sources)Recurrent major depressive episodes; Translations: [Major depressive disorder, recurrent, unspecified]27-10-2313HenxilyBegodp and vomiting (3 sources)Vomiting, unspecified; Translations: [Nausea with vomiting, unspecified]Onset: 30-89-1907XbdvwvjiBtvur circulatory disease (1 source)Orthostatic hypotension; Translations: [Orthostatic hypotension]Onset: 41-33-8403VnnacfdtGrsrx complications of ; puerperium affecting management of mother (4 sources)Retained portions of placenta and membranes, without hemorrhage; Translations: [RETAIN PORTION PLCNTA MEMB NO HEMOR]Onset: 55-55-3387Dfgmvnsp Other complications of (5 sources)Missed ; Translations: [MISSED ]Onset: 05-17-2022 EpisodicOther complications of (2 sources) size does not accord with dates; Translations: [Uterine size- date discrepancy, unspecified trimester]25-29-0374TfstxduvJcgmr gastrointestinal disorders (2 sources)Constipation; Translations: [Constipation, unspecified]09-07-2024 EpisodicOther lower respiratory disease (4 sources)Dyspnea; Translations: [Shortness of breath]06-16-3606MtnscylxSarwy and delivery including normal (20 sources)Encounter for supervision of normal , unspecified, first trimester; Translations: [Encounter for supervision of normal , unspecified, second trimester]Onset: 74-02-0999SbxhfejrFbzyy screening for suspected conditions (not mental disorders or infectious disease) (6 sources)Alpha-fetoprotein blood test status; Translations: [Encounter for screening for raised alphafetoprotein level]84-95-5658GmjhhwxsGnqlh upper respiratory infections (3 sources)Acute pharyngitis, unspecified; Translations: [Acute pharyngitis, unspecified]Onset: 90-66-4346KaefdpgxCabteahq codes; unclassified (2 sources)Gestation period, 13 weeks; Translations: [13 weeks gestation of ]36-02-6599BbtjivhrDuzbwoqv codes; unclassified (2 sources)Gestation period, 17 weeks; Translations: [17 weeks gestation of ]14-70-1773GosbsforUezyjqma codes; unclassified (2 sources)Gestation period, 20 weeks; Translations: [20 weeks gestation of ]40-27-1007DmbnftasBjuqtsej codes; unclassified (2 sources)Gestation period, 24 weeks; Translations: [24 weeks gestation of ]63-24-0868FdilqgvcPwrhqrnh codes; unclassified (4 sources)H/O: miscarriage; Translations: [Personal history of other complications of , childbirth and the puerperium]77-59-9731Gkxfcafy Residual codes; unclassified (2 sources)Gestation period, 28 weeks; Translations: [28 weeks gestation of ]56-83-5107NfsjeladSkrbdrli codes; unclassified (2 sources)Gestation period, 30 weeks; Translations: [30 weeks gestation of ]94-14-9502YhittwxzXpdtcsry codes; unclassified (2 sources)Pain, unspecified; Translations: [Pain, unspecified]Onset: 12-10-2024 EpisodicResidual codes; unclassified (2 sources)Gestation period, 32 weeks; Translations: [32 weeks gestation of ]20-37-1658LshqbhgnPmuskemy codes; unclassified (2 sources)Gestation period, 34 weeks; Translations: [34 weeks gestation of ]34-32-7650BwdeqaohYvbhcmf and strains (1 source)Sprain of ankle; Translations: [Sprain of unspecified ligament of unspecified ankle, initial encounter]12-07-6696NmkumfgdQrbutkoyiwo injury; contusion (1 source)Contusion of knee; Translations: [Contusion of right knee, initial encounter]69-24-6186XjqhfrqgVskeixl (1 source)Syncope and collapse; Translations: [Syncope and collapse]Onset: 41-32-0361BfbxlygcOrvzsta (1 source)SyncopeOnset: 85-67-6331Ecwqjfddccme (1 source)Vomiting During PregnancyOnset: 10-27-2893Jnwtriizohmj (1 source)Threatened MiscarriageOnset: 95-70-3894Bqgjklqgdxdj (1 source)Cold Like SymptomsOnset: 13-31-1813Bhgkeiebklpy (1 source)Cough, unspecified; Translations: [Cough, unspecified]Onset: 66-62-9323Rkxqicq tract infections (2 sources)Urinary tract infectious disease; Translations: [Urinary tract infection, site not specified]34-34-8059IbbtyiayYxbeb infection (1 source)Viral infection, unspecified; Translations: [Viral infection, unspecified]Onset: 18-04-8056WbmmxuyeElacj infection (1 source)COVID-19; Translations: [COVID-19]Onset: 04-22-2024 Past or Other Problems Problem ClassificationProblemDateDocumented DateEpisodic/ChronicEsophageal disorders (1 source)Gastro-esophageal laceration-hemorrhage syndrome; Translations: [GASTRO-ESOPHAGEAL LAC-HEMORR SYND]Onset: 45-39-2869EbwtxrepTertojyqkx during ; abruptio placenta; placenta previa (1 source)Threatened ; Translations: [Threatened ]Onset: 93-12-5589GkrlglwcXevoadweerjb diseases of female pelvic organs (1 source)Inflammatory disease of cervix uteri; Translations: [Inflammatory disease of cervix uteri]Onset: 68-26-0720GlveivwtErkv disorders (16 sources)Mood disordersOnset: 911178-83-7070Pebxz complications of (4 sources)Mild hyperemesis gravidarum; Translations: [MILD HYPEREMESIS GRAVIDARUM]Onset: 56-10-4083RluytadfXjcwd complications of (1 source)Diseases of the digestive system complicating , first trimester; Translations: [DZ DIGESTIVE SYS COMP PREG 1ST TRI]Onset: 04-04-2022 EpisodicOther complications of (1 source)Nausea and vomiting; Translations: [Vomiting of , unspecified]11-19-6634BjsokccaAzjbk complications of (3 sources)Vomiting of , unspecified; Translations: [Unspecified vomiting of , unspecified as to episode of care or not applicable] Onset: 595422-07-8161MbkwsefsUvvcvbfb codes; unclassified (1 source)8 weeks gestation of ; Translations: [8 WEEKS GESTATION OF ]Onset: 88-42-1647NvlubbcpKdwvryhy codes; unclassified (1 source)Less than 8 weeks gestation of ; Translations: [< 8 WEEKS GESTATION ]Onset: 13-18-3544CtvdhpjtQghahqkh codes; unclassified (20 sources)Gestation period, 38 weeks; Translations: [38 weeks gestation of ]Onset: 536905-33-2768ApttlwdhOszwpmyohceu (1 source)Cough, unspecified; Translations: [Cough, unspecified]Onset: 32-92-9872AZAHMAK: Highlighted row has been ruled out!Unclassified (1 source)No known active rrfhmluh01-27-9781 Results Test NameValueInterpretationReference RangeFacilityUrinalysis macro (dipstick) panel (U)on 83-73-6321Dudmrgksd, UANegativeNegative - 4(70) +++ mg/dLNOMS HealthcareBlood, UAPositiveNegative [...] - 12 mg/dLNOMS HealthcareNOMS HealthcareNo Panel Informationon 75-82-3035Gdhwpxfqkomouy and review of laboratory results AbnormalNOMS HealthcareCLINISYNCNOMS HealthcareTBH UA (CLEAN/CATCH) BOOM TENDER/MICRO IF IND.on 96-63-5749MNIULGIBG URINESMALLAbnormalNEGATIVENOMS HealthcareBLOOD URINE LARGEAbnormalNEGATIVENOMS HealthcareClarity (U)CLEARCLEARNOMS HealthcareColor (U)YELLOWYELLOWNOMS HealthcareGLUCOSE URINE UANegativeNEGATIVE mg/dLNOMS HealthcareKetones Ql (U)TRACEAbnormalNEGATIVE mg/dLNOMS HealthcareLeukocyte esterase Test strip Ql (U)TRACEAbnormalNEGATIVENOMS HealthcareNITRITE URINE NegativeNEGATIVENOMS HealthcarepH (U)6.0 [pH]5.0 - 9.0NOMS HealthcarePROTEIN URINETRACENEG/TRACE mg/dLSaint Luke's Health SystemSPECIFIC GRAVITY URINE>=1.030Abnormal 1.005 - 1.025NOAL HealthcareURINE MICROSCOPIC INDICATEDYESNOSaint [facility]'s [facility] UROBILINOGEN URINE1.0 EU/dL0.2 - 1.0 EU/dLNOSaint Luke's East HospitalTB URINE MICROSCOPIC ONLYon 03-77-4425CIXLNFUJ URINETRACEAbnormalNONE SEEN #/HPFNOMS HealthcareCAST SEEN?NONE SEENNONE SEEN #/[facility] CENTERNOAL HealthcareCRYSTALS SEEN?SeenAbnormalNone Seen #/[facility] - DillonMUCUS URINESMALLAbnormalNONE SEENNOSaint Luke's East HospitalSQUAMOUS EPITHELIAL CELL URINEFEWAbnormalNONE/RARE #/[facility] HospitalH CALCIUM OXALATE CRYSTALS URINEMODERATENOSSM [facility] HLT58-83BinvpvylDULORegional Hospital of [facility]on WBC2-5AbnormalNONE SEEN #/HPFNOAL HealthcareURINE CULTURE INDICATEDNONOMS HealthcareUS OB FOLLOW UP TRANSABDOMINAL APPROACHon 15-70-3890FB OB FOLLOW UP TRANSABDOMINAL APPROACHFINDINGS: Comparison November [...] March 14, 2025. The current estimated weight hp8269 grams (4 pounds, 4 ounces). IMPRESSION: Single, [...] Delivery: 03/14/25 Gestational Age as of 01/04/2025: 97d8zKxxoxiowof macro (dipstick) panel (U)on 05-32-1976Foiqjvnsy, UANegativeNegative - 4(70) +++ mg/dLNOMS HealthcareBlood, UAPositiveNegative [...] HealthcareNOMS Healthcare Urinalysis macro (dipstick) panel (U)on 87-83-5496Gdyguzmus, UANegativeNegative - 4(70) +++ mg/dLNOMS HealthcareBlood, UAPositiveNegative - 50 Villa/mcLNOMS HealthcareClarity, UAClearNOMS HealthcareColor, UAYellowNOMS HealthcareGlucose, UANegativeNegative - 1999(110) ++++ mg/dLNOMS HealthcareInterpretation and review of laboratory resultsAbnormalNOMS HealthcareKetones, UANegativeNegative - 160(16) ++++ mg/dLNOMS HealthcareLeukocytes, UAPositiveNegative - 500+++ Pierre/mcLNOMS HealthcareNitrite, UANegativeNegative - PositiveNOMS HealthcarepH, UA65 - 9NOMS HealthcareProtein, UAPositiveNegative - 2000(20) ++++ mg/dLNOMS HealthcareSpec Grav, UA1.0251 - 1.03NOMS HealthcareUrobilinogen, UA1.00.2 - 12 mg/dLNOMS HealthcareNOAL HealthcareUrinalysis macro (dipstick) panel (U)on 96-40-5047Nuqtitqck, UANegativeNegative - 4(70) +++ mg/dLNOMS HealthcareBlood, UANegativeNegative - 50 Villa/mcLNOMS HealthcareClarity, UAClearNOMS Healthcare Color, UAAmberNOMS HealthcareGlucose, UANegativeNegative - 2000(110) ++++ mg/dL [facility] HealthcareInterpretation and review of laboratory resultsAbnormalNOMS HealthcareKetones, UANegativeNegative - 160(16) ++++ mg/dLNOMS Healthcare Leukocytes, UANegativeNegative - 500+++ Pierre/mcLNOMS HealthcareNitrite, UA NegativeNegative - PositiveNOMS HealthcarepH, UA65 - 9NOMS HealthcareProtein, UA NegativeNegative - 2000(20) ++++ mg/dLNOMS HealthcareSpec Grav, UA1.031 - 1.03 NOMS HealthcareUrobilinogen, UA0.20.2 - 12 mg/dLNOAL HealthcareNOAL Healthcare Coding Summaryon 47-12-4738Tkseso SummaryHTMLBase 64 FidstxadGGl7sGk+PGhlYWQ+LD1YMXXoT12rfGGgnW6dD2OSHDzAYnvyTOZKJLmOXgUwbnXuDB3eeMMl ZXJu [file] ZXI (more content not included)...[facility] HospitalCoding Summaryon 09-36-5066Kdtpuy SummaryHTMLBase 64 ZgposivaMEj8kMy+PGhlYWQ+UZ7OXNRjN69uvUPueR9lO4WGVCtIQfjkYKCWSRwKRgNpiuAmRO7baKYv ZXJu [file] YXB (more content not included)...[facility].QC SARS-CoV-2 (COVID- 19)/Flu/RSV (GeneXpert)on 96-20-5951Gqqidnjc ControlKettering Health Dayton Comment on above:Order Comment: Ordered by Discern.[[email or web address]_QC]Performed By: #### [id number], [id number] ####[facility] (DEFAULT)[address] [place] [address]76MUMDG/Flu/RSV (GeneXpert)on 23-21-4960Dcx A (GXpert COVFLURSV)NegativeNormalNegCommunity Regional Medical Center HospitalComment on above:Performed By: #### [id number], [id number] ####[facility] (DEFAULT)[address] [place] [address] 28054Yjv B (GXpert COVFLURSV)NegativeNormalNegCommunity Regional Medical Center HospitalComment on above:Performed By: #### [id number], [id number] ####[facility] (DEFAULT)[address] [place] [address] 56714PGM (GXpert COVFLURSV) NegativeNormalNegCommunity Regional Medical Center HospitalComment on above:Performed By: #### [id number], [id number] ####[facility] (DEFAULT)[address] [place] [address] 02252JDEF-AeE-1 (COVID-19) RNA MILY+probe Ql (Unsp spec)Negative NormalNegSt. Francis HospitalComment on above:Result Comment: Performed by PCR methodology.Performed By: #### [id number], [id number] ####[facility] (DEFAULT)[address] [place] [address] [id number] Note-Nursingon 45-27-1310IG Note-NursingPt. C/O a cough and chest discomfort [...] A&O x4. PT. has a steady gait. oGerman HospitalC Throaton 12-12-2024 ThroatNormal throat jonny isolated No pathogens isolatedThe Surgical Hospital at SouthwoodsComment on above:Performed By: #### [id number] ####[facility] (DEFAULT)[address] [place] [address] 77673 CHLAMYDIA/GC BY PCR TEA SWABon 80-00-6865BCQYTCUFR/GC BY PCR TEA SWAB CHLAMYDIA DNA(PCR) Negative Chlamydia trachomatis not detected by nucleic acid amplification. This does not exclude the possibility of infection because results are dependent on adequate specimen collection. GONORRHOEAE DNA(PCR) Negative Neisseria gonorrhoeae not detected by nucleic acid amplification. This does not exclude the possibility of infection because results are dependent on adequate specimen collection.NormalProMedica Orchard HospitalComment on above:Performed By: #### CBCA, [facility] [address], 1986-08 #### [facility] ([id number]) [address] [place] [address], [place], [place] [address]ZTBC Rapid CoV-2 (COVID-19) Antigen/ Flu A&Bon 12-10-2024 Influenza A POCTNegativeNoatrium health wake [facility] medical centerNegSt. Francis HospitalComment on above: Performed By: #### [id number] ####[facility] (DEFAULT)[address] [place] [address] 22742Zxvkaklix B POCTNegativeNormalNegSt. Francis HospitalComment on above:Performed By: #### [id number] ####[facility] (DEFAULT)[address] [place] [address] 60651KNRN-VbY-7 (COVID-19) RNA MILY+probe Ql (Unsp spec)Not detectedNoGerman HospitalComment on above: Performed By: #### [id number] ####[facility] (DEFAULT)[address] [place] [address] 45055RVXV Rapid Strepon 12-10-2024S. pyogenes Ag IA Ql (Unsp spec)NegativeInvalid Interpretation CodeChildren'S Hospital Of ColumbusComment on above: Performed By: #### [id number], [id number] #### [facility] (DEFAULT) [address] [place], [place] [address]NUQVLGHBKStl 20-58-0160Ugpyyozfe Ql (U)NegativeNormal NegativeKindred HealthcareComment on above:Performed By: #### HILLARY CHI, 1986-08 #### [facility] ([id number]) [address] [place] [address], [place] [address]LABMV/HGBSmallAbnormalNegativeKindred HealthcareComment on above:Performed By: #### HILLARY CHI, 1986-08 #### [facility] ([id number]) [address] [place] [address], [place] [address]VU OXALATE CRYSTALSPresentAbnormalNoneProMedMattel Children's Hospital UCLAComment on above:Performed By: #### HILLARY CHI, 1986-08 #### [facility] ([id number]) [address] [place] [address]Idzte (U)YellowNormalYellowProConnally Memorial Medical CenterComment on above:Performed By: #### HILLARY CHI, 1986-08 #### [place] [facility] ([id number]) [address] [place] [address], [place] [address]Ajlpphx Ql (U)NegativeNormalNegative, 250 mg/dLKindred HealthcareComment on above:Performed By: #### HILLARY CHI, 1986-08 #### [facility] ([id number]) [address] [place] [address], [place] [address]Xlsdarc Ql (U)NegativeNormalNegativeKindred Healthcare Comment on above:Performed By: #### HILLARY CHI, 1986-08 #### [facility] ([id number]) [address] [place] [address] [place] [address]Yoipmkvhf esterase Test strip Ql (U)NegativeNormalNegative [facility] Orchard HospitalComment on above:Performed By: #### HILLARY CHI, 1986-08 #### [facility] ([id number]) [address] [place] [address] 93353Balfuqt Ql (U)NegativeNormalNegSelect Medical [facility] Comment on above:Performed By: #### HILLARY CHI, 1986-08 #### [facility] ([id number]) [address] [place] [address] 92817SH,URINE6.8Gyzxap3.0-8.5PKettering Health TroyComment on above:Performed By: #### HILLARY CHI, 1986-08 #### [facility] ([id number]) [address] [place] [address] 98063Uiwzycm Ql (U)NegativeNormalNegSelect Medical [facility] Comment on above:Performed By: #### HILLARY CHI, 1986-08 #### [facility] ([id number]) [address] [place] [address] 36579U.B.WVYZW0Nirsol9-9WlsEkwsdtKettering Health TroyComment on above: Performed By: #### HILLARY CHI, 1986-08 #### [facility] ([id number]) [address] [place] [address] 12596Dgataejl gravity (U) [Rel density]1.230Qcfuex8.003-1.035 [facility]ica Orchard HospitalComment on above:Performed By: #### HILLARY CHI, 1986-08 #### [facility] ([id number]) [address] [place] [address] 64087DFDTFPXA CFXKDZGVPB5Abxthi1-2LtgIcivqf [facility]remont HospitalComment on above:Performed By: #### HILLARY CHI, 1986-08 #### [facility] ([id number]) [address] [place] [address] 47848NANIAXKKGPrnvpUmvbreMyvhyOvsDokxgx [facility]ont HospitalComment on above:Performed By: #### [facility], 1987-08 #### [facility] ([id number]) [address] [place] [address] 19245SGVRRZDNNWHH0.0 eu/dLNormal0.2 eu/dL, 1.0 eu/dLKindred HealthcareComment on above:Performed By: #### [facility], 1987-08 #### [facility] ([id number]) [address] [place] [address] 41868B.B.FSLNR5Guhnex9-7OcmLzrltr Orchard HospitalComment on above: Performed By: #### [facility], 1987-08 #### [facility] ([id number]) [address] [place] [address] 19819ZUHJF CULTUREon 41-02-4397Ekmzdflu identified Cx Nom (U)CULTURE RESULTS 10-50,000 ORGANISMS/mL NORMAL UROGENITAL FLORANoalKindred Healthcare Comment on above:Performed By: #### [facility], 1987-08 #### [facility] ([id number]) [address] [place] [address] 86836XCIEJTMAL PANEL PCRon 05-76-1614ISBOSWZVL PANEL PCRBACT. VAGINOSIS DNA Not Detected Qualitative [...] accordance with clinical presentation to determine patient diagnosis.NormalProConnally Memorial Medical CenterComment on above:Performed By: #### CBCA, CMP, 1986- #### [facility] ([id number]) [address] [facility]], FIRST FLOOR [place], [place] [address]ZH[address] CBC WITH AUTO DIFFon 48-36-0988LRVIGBCXW ABSOLUTE HXMZ4YNBB HealthcareBasophils/100 WBC (Bld)0.3 %0.2 - 2.0 %NOMS HealthcareEosinophils/100 WBC (Bld)0.2 %Low0.9 - 7.0 %NOMS HealthcareErythrocyte distribution width (RBC) [Ratio]12.6 %11.0 - 15.0 %NOMS HealthcareHematocrit (Bld) [Volume fraction]36.7 %36.0 - 48.0 %NOMS HealthcareHemoglobin (Bld) [Mass/Vol]11.9 g/dLLow12.0 - 16.0 g/dLNOAL HealthcareIMMATURE GRANULOCYTES ABS AUTO0.1HighNOMS HealthcareImmature granulocytes/100 WBC (Bld)0.7 %High0.0 - 0.5 %NOMS HealthcareInterpretation and review of laboratory resultsAbnormalNOMS HealthcareLYMPHOCYTES ABSOLUTE AUTO3.1 NOMS HealthcareLymphocytes/100 WBC (Bld)21.7 %20.5 - 60.0 %NOM HealthcareMCH (RBC) [Entitic mass]27.2 pg26.7 - 34.0 pgNOAL HealthcareMCHC (RBC) [Mass/Vol] 32.4 g/dL29.9 - 35.2 g/dLNOSaint Luke's East HospitalMCV (RBC) [Entitic vol]83.8 fL81.0 - 99.0 fLNOAL HealthcareMONOCYTES ABSOLUTE AUTO1.3HighNOMS HealthcareMonocytes/100 WBC (Bld)9.2 %1.7 - 12.0 %NOMS HealthcareNEUTROPHILS ABSOLUTE AUTO9.5HighNOMS HealthcareNeutrophils/100 WBC (Bld)67.9 %43.0 - 75.0 %NOMS HealthcarePlatelet mean volume (Bld) [Entitic vol]10.1 fL9.5 - 13.5 fLNOAL HealthcareTBH EO #0NOMS HealthcareTBH [id number] HealthcareTBH RBC4.38NOMS HealthcareTBH MWN91CbcoVZBT HealthcareCLINISYNCNOMS HealthcareUS OB LIMITED 1+ FETUSESon 76-87-0305YT OB LIMITED 1+ FETUSESEXAM: US OB LIMITED [...] II, MD, PHD at 24-Nov-2024 07:59:26 AM [facility] TeleradiologyNormalNot AvailableComment on above:Order Comment: US OB INCOMPLETE ANATOMY Estimated Date of Delivery: 03/14/25 Gestational Age as of 11/02/2024: 38m0uXjonzepnvs macro (dipstick) panel (U)on 75-07-8532Npieruotw, UAPositiveNegative - 4(70) +++ mg/dLNOMS HealthcareComment on [...] - 12 mg/dLNOMS HealthcareNOMS HealthcareTBH UA (CLEAN/CATCH) BOOM TENDER/MICRO IF IND.on 48-23-4487ZORIKEVVY URINESMALLAbnormalNEGATIVE NOMMercy Hospital St. John'SBLOOD URINETRACE-INEGATIVENOMS HealthcareClarity (U)CLEARCLEAR NOMS HealthcareColor (U)YELLOWYELLOWNOAL HealthcareGLUCOSE URINE UANegative NEGATIVE mg/dLNOAL HealthcareInterpretation and review of laboratory results AbnormalNOMS HealthcareKetones Ql (U)15 mg/dLAbnormalNEGATIVENOAL Healthcare Leukocyte esterase Test strip Ql (U)NegativeNEGATIVENOMS HealthcareNITRITE URINE NegativeNEGATIVENOMS HealthcarepH (U)5.5 [pH]5.0 - 9.0NOMS HealthcarePROTEIN URINENegativeNEG/TRACE mg/dLNOAL HealthcareSPECIFIC GRAVITY URINE>=1.030Abnormal 1.005 - 1.025NOAL HealthcareURINE MICROSCOPIC INDICATEDYESNOAL Healthcare UROBILINOGEN URINE1.0 EU/dL0.2 - 1.0 EU/dLNOAL HealthcareCLINISYNCNOMS HealthcareAFP, SERUM, OPEN SPINA BIFIDAon 74-74-4950NML MOM1.64.[facility] AFP VALUE69.3 ng/mL.NOMS HealthcareCOMMENT:Comment.NOMS HealthcareComment on above:Simi Ewing, Ph.D., [facility] Director References: Available Upon Request. Multiples Of Median Cutoffs For AFP Elevations Andre 2.5 Black 2.8 IDD 2.0 Twins 4.5 Abbreviation Definitions IDD - Insulin Dep Diabetes OSBR - Open Spina Bifida Risk For further inquiries contact [employer] at [phone]. This test was developed and its performance characteristics determined by [employer]. It has not been cleared or approved by the Food and Drug Administration. Performed at: [facility] [address] [facility], [place], [place] [id number] [employer] Folder: Mahendra Adam [facility], Phone: [phone] GEST. AGE ON COLLECTION DATE20.1. weeksNOMS HealthcareGESTAT. [...] Customer Services to discuss available options. The [employer] recommends amniocentesis be offered to women age 35 and older. MATERNAL AGE AT EDD23.4. yrNOAL HealthcareMULTIPLE GESTATIONNo.[facility] OSBR RISK 1 UP8620.[place] [employer] HealthcareRACECaucasian.[facility] SystemRESULTSReport. [facility] SystemTEST RESULTS:Negative.[facility] Health SystemLgbghfxsebXBNAOU071. lbMid-Valley Hospital HealthcarePREGNANCY N N ULTRASOUND [id number] 1 17 N 1 Y 251 N N N N N White/ CLINISYNewport Medical CenterCA ECHO DOPPLER COMPLETEon 76-62-7653PrkPort [place] [address] Cardiology Report Signed Patient: LIA DESAI MR#: [id number] : 2000 Acct:[id number] Age/Sex: 24 / F ADM Date: 10/27/24 Loc: CARD Attending Dr: Robert Marrero D.O. Ordering Physician: Robert Marrero D.O. Date of Service: 10/27/24 Procedure(s): CA echo doppler complete Accession Number(s): [id number] cc: Robert Marrero D.O.; Physician,Non-Staff M.DMarisabel Patient Name: LIA DESAI MR#: [id number] : 2000 Exam Date: 10/27/2024 Ordering Doctor: [...] not included)...TBHRadiology, Radiologist, MD - 10/28/2024 [place] [address] Cardiology Report Signed Patient: LIA DESAI MR#: [id number] : 2000 Acct:[id number] Age/Sex: 24 / F ADM Date: 10/27/24 Loc: CARD Attending Dr: Robert Marrero D.O. Ordering Physician: Robert Marrero D.O. Date of Service: 10/27/24 Procedure(s): CA echo doppler complete Accession Number(s): [id number] cc: Robert Marrero D.O.; Physician,Non-Staff Nena Patient Name: LIA DESAI MR#: [id number] : 2000 Exam Date: 10/27/2024 Ordering Doctor: [...] TENA Signed By: 10/28/241843 DD/ 42 TD/TT: Electrical Mechanic: AHSAN HealthcareRadiology Study observation (narrative)[facility] SystemCA ECHO DOPPLER COMPLETEOrdered By: Radiologist Radiology on 23-79-6053[facility] Work Phone: ecg 12-LEADon [phone] [address] Electrocardiograph Report Signed Patient: LIA DESAI MR#: [id number] : 2000 Acct:[id number] Age/Sex: 24 / F ADM Date: 10/27/24 Loc: CARD Attending Dr: Robert Marrero D.O. Ordering Physician: Robert Marrero D.O. 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 Measurements Intervals [place] Rate: 96 P: 41 AL: 104 QRS: 52 QRSD: 86 T: 21 QT: 334 QTc: 424 Interpretive Statements SINUS RHYTHM WITH SHORT AL INTERVAL MINIMAL ST DEPRESSION [0.025+ mV ST DEPRESSION] Abnormal ECG No previous ECG available for comparison Electronically Signed On 10-28-2024 7:03:40 EDT by APOLLO TENA M.D. Dictated By: APOLLO TENA Signed By: 10/28/2470210/28/24702 DD/ 1137 TD/TT: Electrical Mechanic:TBHRadiology, Radiologist, - 10/28/2024 [place] [address] Electrocardiograph Report Signed Patient: LIA DESAI MR#: [id number] : 2000 Acct:[id number] Age/Sex: 24 / F ADM Date: 10/27/24 Loc: CARD Attending Dr: Robert Marrero D.O. Ordering Physician: Robert Marrero D.O. 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 Measurements Intervals [place] Rate: 96 P: 41 AL: 104 QRS: 52 QRSD: 86 T: 21 QT: 334 QTc: 424 Interpretive Statements SINUS RHYTHM WITH SHORT AL INTERVAL MINIMAL ST DEPRESSION [0.025+ mV ST DEPRESSION] Abnormal ECG No previous ECG available for comparison Electronically Signed On 10-28-2024 7:03:40 EDT by APOLLO TENA M.D. Dictated By: APOLLO ETNA Signed By: 10/28/24 0710/28/24702 DD/ 1137 TD/TT: Electrical Mechanic: Media RetrieversKaci [email or web address] 12-LEADOrdered By: Radiologist Radiology on 22-14-1222HZ[facility] Work Phone: ECG 12-LEADon 32-42-0086Ecvbcojug Study observation (narrative)NOMSRE [place] - 2US OB 14+ WEEKS ANATOMY SCANon 39-04-3241VX OB 14+ WEEKS ANATOMY SCANEXAM: US OB [...] II, MD, PHD at 27-Oct-2024 07:25:37 AM [facility] TeleradiologyNormalNot AvailableComment on above:Order Comment: US OB ANATOMY SINGLE W US OB CERVICAL LENGTH Estimated Date of Delivery: 03/14/25 Gestational Age as of 10/05/2024: 13h9iJurcqpkumb macro (dipstick) panel (U)on 18-87-6071Emagkknfe, UANegativeNegative - 4(70) +++ mg/dLNOMS HealthcareBlood, UANegativeNegative [...] 12 mg/dLNOMS HealthcareNOMS HealthcareB- TYPE NATRIURETIC PEPTIDEon 37-22-6141Fzqhrjavwob peptide B (Bld) [Mass/Vol]5 pg/mLNormal<=100ProConnally Memorial Medical CenterComment on above:Performed By: #### CBCA, CMP, 1986- #### [facility] ([id number]) [address] [place] [address] 53085IPH WITH AUTO DIFFERENTIALon 48-13-6902QWPGTSMHS ABSOLUTE COUNT (10*3/UL) BY AUTOMATED COUNT0.0 10*3/uLNormal0.0-0.2[facility] Comment on above:Performed By: #### 6-3 #### [facility] ([id number]) [address] [place] [address] 69627JDAGTUYRW RELATIVE PERCENT BY AUTOMATED COUNT0.2 %Normal Kindred HealthcareComment on above:Performed By: #### 6-3 #### [facility] ([id number]) [address] [place] [address] 19124ZFIBQJQETPZ DIFFERENTIAL TYPEAUTOMATED DIFFERENTIALNormal Kindred HealthcareComment on above:Performed By: #### 6-3 #### [facility] ([id number]) [address] [place] [address] 97322Jwljttnahhh (Bld) [#/Vol]0.0 10*3/uLNormal0.0-0.4ProMedica Orchard HospitalComment on above:Performed By: #### 6-3 #### [facility] ([id number]) [address] [place] [address] 51731HQYWNFQNKZH RELATIVE PERCENT BY AUTOMATED COUNT0.3 %Normal Kindred HealthcareComment on above:Performed By: #### 6-3 #### [facility] ([id number]) [address] [place] [address] 79584Aannotpebgf distribution width (RBC) [Ratio]14.1 %Tzynzr51.5-15 Kindred HealthcareComment on above:Performed By: #### 6-3 #### [facility] ([id number]) [address] [place] [address] 35672Iwtivfxjpg (Bld) [Volume fraction]38.7 %Pjpjtk24-52RtsNzyekbKindred HealthcareComment on above:Performed By: #### 6-3 #### [facility] ([id number]) [address] [place] [address] 33854Bdngizpcqn (Bld) [Mass/Vol]13.0 g/aKLvmvom54.7-15.5PKettering Health TroyComment on above:Performed By: #### 6-3 #### [facility] ([id number]) [address] [place] [address] 48095ISXTROXCJTC ABSOLUTE COUNT (10*3/UL) BY AUTOMATED COUNT2.4 10*3/uLNormal1.0-3.5PKettering Health TroyComment on above:Performed By: #### 6-3 #### [facility] ([id number]) [address] [place] [address] 03016TTNXERKXSVD RELATIVE PERCENT BY AUTOMATED COUNT18.3 %Normal ProMSt. Rose HospitalComment on above:Performed By: #### 6-3 #### [facility] ([id number]) [address] [place] [address] 54853DPO (RBC) [Entitic mass]27.1 hwWdjpsy06-98WudIjwumbKindred HealthcareComment on above:Performed By: #### 6-3 #### [facility] ([id number]) [address] [place] [address] 63351IMUI (RBC) [Mass/Vol]33.7 g/xZTqbtuv03-03HqpHckajjConnally Memorial Medical CenterComment on above:Performed By: #### 6-3 #### [facility] ([id number]) [address] [place] [address] 98654CVX (RBC) [Entitic vol]80 vJAuuujn12-066QmwLbcawu [facility] HospitalComment on above:Performed By: #### 6-3 #### [facility] ([id number]) [address] [place] [address] 66700YAVGYYQGM ABSOLUTE COUNT (10*3/UL) BY AUTOMATED COUNT1.0 10*3/uLHigh0.0-0.9ProConnally Memorial Medical CenterComment on above:Performed By: #### 6-3 #### [facility] ([id number]) [address] [place] [address] 93100YMNJXVVDK RELATIVE PERCENT BY AUTOMATED COUNT8.0 %Normal Kindred HealthcareComment on above:Performed By: #### 6-3 #### [facility] ([id number]) [address] [place] [address] 23320QUSFOIQAMAI ABSOLUTE COUNT BY AUTOMATED COUNT9.5 10*3/uLHigh 1.5-6.6ProConnally Memorial Medical CenterComment on above:Performed By: #### 6-3 #### [facility] ([id number]) [address] [place] [address] 16272MRXGUEMCRKX RELATIVE PERCENT BY AUTOMATED COUNT73.2 %Normal Kindred HealthcareComment on above:Performed By: #### 6-3 #### [facility] ([id number]) [address] [place] [address] 89264Tmocgddo mean volume (Bld) [Entitic vol]9.2 fLNormal7-12 Kindred HealthcareComment on above:Performed By: #### 6-3 #### [facility] ([id number]) [address] [place] [address] 95550Tptvmtqfi (Bld) [#/Vol]362 10*3/lVSdhdfc762-979TlxQwxlfa [facility]remont HospitalComment on above:Performed By: #### 6-3 #### [facility] ([id number]) [address] [place] [address] 85385AOZ COUNT4.82 X10E12/LNormal3.8-5.2PKettering Health Troy Comment on above:Performed By: #### 2106-3 #### [facility] ([id number]) [address] [place] [address] 25990LUU (Bld) [#/Vol]13.0 10*3/uLHigh4-11[facility] Comment on above:Performed By: #### 6-3 #### [facility] ([id number]) [address] [place] [address] 74276DHLWPJRVGAQSX METABOLIC PANELon 38-18-4667Ubusunw [Mass/Vol]3.4 g/dLNormal3.2-5.3PKettering Health TroyComment on above:Performed By: #### HILLARY CHI, 1986-08 #### [facility] ([id number]) [address] [place] [address] 07942CAR [Catalytic activity/Vol]76 U/OIlumcn40-704GmuMifpepKindred HealthcareComment on above:Performed By: #### HILLARY CHI, 1986-08 #### [facility] ([id number]) [address] [place] [address] 36657SVX [Catalytic activity/Vol]11 U/LNormal<=31PKettering Health TroyComment on above:Performed By: #### HILLARY CHI, 1986-08 #### [facility] ([id number]) [address] [place] [address] 21485Ujxky gap [Moles/Vol]11 mmol/LNormal5-15Kindred HealthcareComment on above:Performed By: #### HILLARY CHI, 1986-08 #### [facility] ([id number]) [address] [place] [address] 04309AJC [Catalytic activity/Vol]17 U/LNormal<=41ProConnally Memorial Medical CenterComment on above:Performed By: #### HILLARY CHI, 1986-08 #### [facility] ([id number]) [address] [place] [address] 35573Qnvdbgddy [Mass/Vol]0.7 mg/dLNormal0.3-1.2PKettering Health TroyComment on above:Performed By: #### HILLARY CHI, 1986-08 #### [facility] ([id number]) [address] [place] [address] 56994Karrvpg [Mass/Vol]9.0 mg/dLNormal8.5-10.5PKettering Health TroyComment on above:Performed By: #### HILLARY CHI 1986-08 #### [facility] ([id number]) [address] [place] [address] 25697Qdsfbwnm [Moles/Vol]105 mmol/WRyytlw76-195UeqFjhzsiConnally Memorial Medical CenterComment on above:Performed By: #### HILLARY CHI, 1986-08 #### [facility] ([id number]) [address] [place] [address] 76212NP8 [Moles/Vol]21 mmol/DCnf75-14UbiSogdbdKettering Health Troy Comment on above:Performed By: #### HILLARY CHI, 1986-08 #### [facility] ([id number]) [address] [place] [address] 61167Aqwoayqjis [Mass/Vol]0.71 mg/dLNormal0.40-1.00ProConnally Memorial Medical CenterComment on above:Result Comment: METHOD TRACEABLE TO IDMS STANDARD Performed By: #### HILLARY CHI, 1986-08 #### [facility] ([id number]) [address] [place] [address] 31888ERXT (CKD-EPI) NON-RACE DEPENDENT>^90Normal>=60ProConnally Memorial Medical CenterComment on above:Result Comment: eGFR not reported due to non- numeric value for Creatinine. Reported eGFR is based on the CKD-EPI 2020 equation that does not use a race coefficient.Performed By: #### HILLARY CHI, 1986-08 #### [facility] ([id number]) [address] [place] [address] 36990Bcqlnbf [Mass/Vol]80 mg/bPMqwwef98-08YdzMjyqwvConnally Memorial Medical Center Comment on above:Performed By: #### [facility] 1987-08 #### [facility] ([id number]) [address] [place] [address] 95501Bkqgbaxuw [Moles/Vol]4.1 mmol/LNormal3.5-5.0ProConnally Memorial Medical CenterComment on above:Performed By: #### [facility], 1987-08 #### [facility] ([id number]) [address] [place] [address] 88237Zixjpmr [Mass/Vol]7.1 g/dLNormal6.0-8.0ProConnally Memorial Medical CenterComment on above:Performed By: #### [facility], 1987-08 #### [facility] ([id number]) [address] [place] [address] 76539Ncpivo [Moles/Vol]137 mmol/FHkfcbe378-534FrnBhziau [facility]remont HospitalComment on above:Performed By: #### [facility], 1987-08 #### [facility] ([id number]) [address] [place] [address] 98390Cgjx nitrogen [Mass/Vol]6 mg/dLNormal5-23ProConnally Memorial Medical CenterComment on above:Performed By: #### HILLARY CHI, 1986-08 #### [facility] ([id number]) [address] [place] [address] 54722QWSQOFOCIaf 29-11-3907Rocvfxpyp [Mass/Vol]2.0 mg/dLNormal 1.8-2.6ProConnally Memorial Medical CenterComment on above:Performed By: #### HILLARY CHI, 1986-08 #### [facility] ([id number]) [address] [place] [address], [place] [address]FBJD I, HIGH SENSITIVITY 1 HOURon 17-61-0905ZGOYSUDY I, HIGH SENSITIVITY<^2Normal<16ProConnally Memorial Medical CenterComment on above:Performed By: #### HILLARY CHI, 1986-08 #### [facility] ([id number]) [address] [place] [address], [place] [address]MXSOXXXE I, HIGH SENSITIVITY 0 HOURon 76-96-1922VDZATIAW I, HIGH SENSITIVITY<^2Normal<16ProConnally Memorial Medical CenterComment on above:Performed By: ###Mikael CHI CMP, 1987-08 #### [facility] ([id number]) [address] [place] [address], [place] [address]TRK,APTIMA HPV,AGE GDLNon 58-78-4437QEU GDLN ACOG TESTINGNote. NOMS HealthcareComment on above:TESTS RESULT FLAG UNITS REF RANGE LAB Clinician Provided Cytology Information Source.............Cervix No. of containers..01 ThinPrep Vial Age Algo ACOG Marielos... -06 05 FLAG LEGEND: L-Low Normal,H-High Normal,LL-Alert Low,HH-Alert High <-Panic Low,>-Panic High,A-Abnormal,AA-Critical Abnormal Performed at: 01 =G [facility] [address] [place] [address] Kylee Rivera MD, IGP, RFX APTIMA HPV ASCUNote.NOMS HealthcareComment on above:TESTS RESULT FLAG UNITS REF RANGE LAB DIAGNOSIS: 02 NEGATIVE FOR INTRAEPITHELIAL LESION OR MALIGNANCY. Specimen adequacy: 02 Satisfactory for evaluation. Endocervical and/or squamous metaplastic cells (endocervical component) are present. Performed by: Carri Lennon, Microbiology Technician ([facility]) . 02 Note: Note 03 The [...] Low,>-Panic High,A-Abnormal,AA-Critical Abnormal Performed at: 02 [facility] [address] [place] [address] Med Campbell MD, [address] [address] Kylee Rivera MD, Performed at: =G - [facility] [address] [id number] [employer] Folder: Kylee Rivera MD, Phone: [phone] Performed at: [facility] [address] [place], [place] [id number] [employer] Folder: Med Campbell MD, Phone: [phone] SPATULA-ALONE CERVIX CLINISYNCNOMS HealthcareRECURRENT VAGINITIS (HTRX)on [id number] VAGINAE 0NOMS HealthcareATOPOBIUM VAGINAENot detectedNOMS HealthcareBVAB 2,3 (BACTERIAL VAGINOSIS ASSOCIATED BACTERIA 2, 3); MOBILUNCUS [id number] HealthcareBVAB 2,3 (BACTERIAL VAGINOSIS ASSOCIATED BACTERIA 2, 3); MOBILUNCUS SPPNot detectedNOMS HealthcareCANDIDA ALBICANS, PARAPSILOSIS, [id number] HealthcareCANDIDA ALBICANS, PARAPSILOSIS, TROPICALISNot detectedNOMS HealthcareCANDIDA GLABRATA0 NOMS HealthcareCANDIDA GLABRATANot detectedNOMS HealthcareCANDIDA [id number] HealthcareCANDIDA KRUSEINot detectedNOMS HealthcareCHLAMYDIA [id number] HealthcareCHLAMYDIA TRACHOMATISNot detectedNOMS HealthcareERMB, C; MEFA25.809 AbnormalNOMS HealthcareERMB, C; MEFADetectedAbnormalNOMS HealthcareGARDNERELLA WFQMYUGEK35.457AbnormalNOMS HealthcareGARDNERELLA VAGINALISDetectedAbnormalNOMS HealthcareInterpretation and review of laboratory resultsAbnormalNOMS Healthcare MEGASPHAERA (TYPES 1, 2)0NOMS HealthcareMEGASPHAERA (TYPES 1, 2)Not detectedNOMS HealthcareMYCOPLASMA ZUIMSEMVVM4KDMJ HealthcareMYCOPLASMA GENITALIUMNot detectedNOMS HealthcareNEISSERIA FFYDQWHSFDK9JVTD HealthcareNEISSERIA GONORRHOEAENot detectedNOMS HealthcareTET B, TET M26.802AbnormalNOMS Healthcare TET B, TET MDetectedAbnormalNOMS HealthcareTRICHOMONAS QZNXVEVVE9ZSXT Healthcare TRICHOMONAS VAGINALISNot detectedNOMS HealthcareNOMS HealthcareUrinalysis macro (dipstick) panel (U)on 48-24-5069Xtjhkddtk, UAPositiveNegative - 4(70) +++ mg/dL NOMS HealthcareComment on above:smallBlood, UAPositiveNegative - 50 Villa/mcLNOMS HealthcareComment on above:traceClarity, UAClearNOMS HealthcareColor, UAYellow NOMS HealthcareGlucose, UANegativeNegative - 2000(110) ++++ mg/dLNOAL Healthcare Interpretation and review of laboratory resultsAbnormalNOMS HealthcareKetones, UAPositiveNegative - 160(16) ++++ mg/dLNOMS HealthcareComment on above:15 Leukocytes, UANegativeNegative - 500+++ Pierre/mcLNOMS HealthcareNitrite, UA NegativeNegative - PositiveNOMS HealthcarepH, UA6.55 - 9NOMS HealthcareProtein, UAPositiveNegative - 2000(20) ++++ mg/dLNOMS HealthcareComment on above:100Spec Grav, UA1.0251 - 1.03NOMS HealthcareUrobilinogen, UA1.00.2 - 12 mg/dLNOMS HealthcareNOMS HealthcareCoding Summaryon 63-99-2019Mqomuy SummaryHTMLBase 64 BqstdljrCWi0rIy+PGhlYWQ+YC5BEJVvX28xdMHbeQ0mE6RCOMkJRjkiVGMOKHgKSyRtowFbBU2xaOZk ZXJu [file] YXB (more content not included)...[facility]woodsPOIA Rapid Strepon 09-20-2024S. pyogenes Ag IA Ql (Unsp spec)NegativeInvalid Interpretation Code [facility] on above:Performed By: #### [id number], [id number], [id number] #### [facility] (DEFAULT) [address] [place], [place] [address]VQM RUBELLA IGG ABon 41-53-3067TFRYVTA ANTIBODIES, IGG1.46 Immune >0.99 indexNOMS HealthcareComment on above:Non-immune <0.90 Equivocal 0.90 - 0.99 Immune >0.99 Performed at: - [facility], [place], [place] [id number] [employer] Folder: Yvan Bolton PhD, Phone: [phone] HCV ANTIBODY RFX TO QUANT PCRon 00-10-4554ODF ABNon-ReactiveNon ReactiveNOMS HealthcareINTERPRETATION:Comment.NOMS HealthcareComment on above:Not infected with HCV unless early or acute infection is suspected (which may be delayed in an immunocompromised individual), or other evidence exists to indicate HCV infection. No Panel Informationon 00-00-0909EKMZGRMXNYMJS HealthcareUrinalysis macro (dipstick) panel (U)on 79-15-9638Mumeqhaan, UAPositiveNegative - 4(70) +++ mg/dL NOMS HealthcareComment [...] UA2.00.2 - 12 mg/dLNOMS HealthcareNOMS HealthcareCoding Summaryon 97-83-0580Osczyn SummaryBEAVER VALLEY HOSPITALBase 64 TugwwqwxWHv1sCr+PGhlYWQ+SE3OPRLkE88bsCBgbW7oT9LOZDaNOfmbPNBOHBqWTdXhufYbVG6wwTIw ZXJu [file] ZXI (more content not included)...[facility] HospitalBOX TESTon 08-18-2024 BOX TEST SENT OUTUNPREMIER HEALTH FhsmlokgeoNVA8ACRACWFMN QgkiyeliqtREV29/13/25NOSaint Luke's East HospitalUNOHIO VALLEY [facility]ITAL BOX CLINISYNCSaint Luke's Health SystemC Urineon 08-13-2024 UrineUrine Culture ordered as a result of parameters set on specific urine dip and urine microsopic results. Mixed skin, or urogenital jonny. Clinically insignificantThe [facility] Comment on above:Performed By: #### [id number], [id number], [id number] #### [facility] (DEFAULT) [address] [place] [address].Auto Diff 1on 26-70-8724Awuk Boyd %7 %Normal1-12[facility] HospitalComment on above:Performed By: #### 9779949, 0573473, 52740325, [id number] ####[facility] (DEFAULT)[address] [place] [address] Baso Abs#0.1 b91Fyjftj9.0-0.2M[facility] hospital HospitalComment on above:Performed By: #### 3997695, 6529164, 34274903, [id number] ####[facility] (DEFAULT)[address] [place], [place] [address]Basophils/100 WBC (Bld)0.7 %Normal0.2-2.0 [facility] ColumbusComment on above:Performed By: #### 4249839, 7443413, 00859901, [id number] ####[facility] (DEFAULT)[address] [place], [place] [address]Eos Abs#0.0 f85Ctoner2.0-0.4[facility] HospitalComment on above:Performed By: #### 6935702, 9378554, 18634110, 6697057823 ####[facility] (DEFAULT)[address] [place], [place] [address]Joixtjgwejp/100 WBC (Bld)0.4 %Low0.9-4.0 [facility] HospitalComment on above:Performed By: #### 3089764, 2468979, 69038276, 6496950851 ####[facility] (DEFAULT)[address] [place] [address] 78993Otptw Abs#2.5 b15Cyokox3.3-2.9[facility] HospitalComment on above:Performed By: #### 7375315, 0053121, 43774885, [id number] ####[facility] (DEFAULT)[address] [place] [address] 58541Zoolvpgrpbi/100 WBC (Bld)23 % Bzebhu99-62Cdpkzhhx HospitalComment on above:Performed By: #### 4372405, 6621660, 93134605, [id number] ####[facility] (DEFAULT)[address] [place] [address] 01178Nsie Abs#0.7 b66Froaaw7.0-0.8[facility] Hospital Comment on above:Performed By: #### 5069397, 4529725, 17523926, [id number] ####[facility] (DEFAULT)[address] [place] [address] 35087Didf Abs# 7.3 n05Gxbsxv7.5-9.2M[facility] hospital HospitalComment on above:Performed By: #### 4914394, 1625648, 17657464, [id number] ####[facility] (DEFAULT)[address] [place] [address] 18123Wpklsalqobc/100 WBC (Bld)69 %Duloqn16-12Ktkcewhs HospitalComment on above:Performed By: #### 6740340, 3862322, 16525679, [id number] ####[facility] (DEFAULT)[address] [place] [address] 38469 CBC w/ Auto Diffon 19-27-9015Wwahdgmdolp distribution width (RBC) [Ratio]14.0 % Ndeexx33.5-15.0[facility] HospitalComment on above:Performed By: #### 5922348, 5268554, 17289558, [id number] ####[facility] (DEFAULT)[address] [place] [address] 59362Vvxdjpqbym (Bld) [Volume fraction]40.0 %Normal 33.7-40.4[facility] HospitalComment on above:Performed By: #### 2565970, 3606989, 53941196, [id number] ####[facility] (DEFAULT)[address] [place] [address] 58394Rixiaicabw (Bld) [Mass/Vol]13.4 g/wKLrmhme49.3-15.9[facility] HospitalComment on above:Performed By: #### 8805948, 8657316, 06310202, [id number] ####[facility] (DEFAULT)[address] [place] [address] 68672 Man Diff?AutoInvalid Interpretation CodeUniversity Hospitals [facility] Center HospitalComment on above: Performed By: #### 0599374, 1015953, 69245954, [id number] ####[facility] (DEFAULT)[address] [place] [address] 83944VZJ (RBC) [Entitic mass]27 pg Ugcjyw48-70Hirnwoza HospitalComment on above:Performed By: #### 0141537, 3061333, 78039817, [id number] ####[facility] (DEFAULT)[address] [place] [address] 99176JRRE (RBC) [Mass/Vol]34 g/jSVqcxfp76-21Ahqyvnvp HospitalComment on above:Performed By: #### 7530777, 0741419, 67297959, [id number] ####[facility] (DEFAULT)[address] [place] [address] 84344 MCV (RBC) [Entitic vol]82 vXMfolrr19-803Kfnfesxw HospitalComment on above: Performed By: #### 0828764, 6850325, 62907926, [id number] ####[facility] (DEFAULT)[address] [place] [address] 05738Bdamyjyd467 h82Zuxybq240-693 [facility] ColumbusComment on above:Performed By: #### 8402129, 3571508, 75162789, 7887776684 ####[facility] (DEFAULT)[address] [place] [address] 66484 Platelet mean volume (Bld) [Entitic vol]8.6 fLNormal6.3-10.2M[facility] Hospital Comment on above:Performed By: #### 6288525, 8643851, 06889832, [id number] ####[facility] (DEFAULT)[address] [place] [address] 60951OWL1.88 x10 Normal3.70-5.30[facility] ColumbusComment on above:Performed By: #### 7724292, 3946178, 66452718, 7269491651 ####[facility] (DEFAULT)[address] [place] [address] 95039QON94.7 e52Affe1.5-10.5[facility] Of ColumbusComment on above:Performed By: #### 1007441, 0613433, 26648959, 0063327568 ####[facility] (DEFAULT)[address] [place] [address] 05224BZD Standardon 05-00-0458qWLM Non AA>60Invalid Interpretation [facility]ighComment on above:Performed By: #### 5416903, 8429840, 21516214, [id number] ####[facility] (DEFAULT)[address] [place] [address] 87068cTMJ AA>60Invalid Interpretation [facility]ighComment on above:Performed By: #### 6641612, 1128102, 39340388, [id number] ####[facility] (DEFAULT)[address] [place] [address] 59178Hrqhdul [Mass/Vol]3.9 g/dLNormal3.5-5.0[facility] HospitalComment on above:Performed By: #### 4429202, 2036262, 05460281, 5618407989 ####[facility] (DEFAULT)[address] [place] [address] Albumin/Globulin [Mass ratio]1.0 {ratio}Low1.4-2.6M[facility] HospitalComment on above:Performed By: #### 0397874, 0288556, 31609470, 0316054899 ####[facility] (DEFAULT)[address] [place], [place] [address]Wbh Phos77 IU/LNormal 32-91[facility] HospitalComment on above:Performed By: #### 0756098, 6471135, 69793868, 7168257460 ####[facility] (DEFAULT)[address] [place] [address] 77076DYJ [Catalytic activity/Vol]25.0 U/TAcnvps20.0-54.0[facility] HospitalComment on above:Performed By: #### 7903880, 4100381, 77985814, 1562361711 ####[facility] (DEFAULT)[address] [place] [address] 85743 Anion gap [Moles/Vol]13.8 mmol/LNormal5.0-19.0[facility] HospitalComment on above: Performed By: #### 3885058, 1975869, 43911634, 7613237599 ####[facility] (DEFAULT)[address] [place] [address] 59208IBC [Catalytic activity/Vol]21 U/ABsgoai92-59Exroqnzd HospitalComment on above:Performed By: #### 3392227, 4053210, 15177228, 1429577066 ####[facility] (DEFAULT)[address] [place] [address] 40210Fpei Total0.7 mg/dLNormal0.3-1.2M[facility] Hospital Comment on above:Performed By: #### 8528927, 0441076, 97584486, 2485398086 ####[facility] (DEFAULT)[address] [place], [place] [address]Jlrtkyh [Mass/Vol]9.2 mg/dLNormal8.9-10.3M[facility] HospitalComment on above:Performed By: #### 2800685, 0186480, 59334544, 5917170412 ####[facility] (DEFAULT)[address] [place] [address] 04339Iqfsxnow [Moles/Vol]105 mmol/BZmbdgx100-308 [facility] ColumbusComment on above:Performed By: #### 3954312, 4351332, 39026035, 6456707725 ####[facility] (DEFAULT)[address] [place] [address] 50679MM8 [Moles/Vol]21 mmol/XPysksr00-29Xnblwfyd HospitalComment on above: Performed By: #### 9254088, 0960218, 36586961, [id number] ####[facility] (DEFAULT)[address] [place] [address] 31298Wtylblawyi [Mass/Vol]0.55 mg/dL Low0.60-1.30[facility] HospitalComment on above:Performed By: #### 6060199, 6584589, 02488079, [id number] ####[facility] (DEFAULT)[address] [place] [address] 68975Huanosti (S) [Mass/Vol]3.7 g/dLNormal1.5-4.3M[facility] HospitalComment on above:Performed By: #### 0776455, 5012456, 56530113, 5670238834 ####[facility] (DEFAULT)[address] [place] [address] 80333 Glucose [Mass/Vol]92.0 mg/aTGratkg36.0-118.0[facility] HospitalComment on above: Performed By: #### 9595762, 3926898, 25200320, 0333724192 ####[facility] (DEFAULT)[address] [place], [place] [address]Mvyegtonih376 mOsm/LInvalid Interpretation CodeUniversity Hospitals [facility] HospitalComment on above:Performed By: #### 8903539, 3957215, 50506760, [id number] ####[facility] (DEFAULT)[address] [place], [place] [address]Txnamrdjp [Moles/Vol]3.8 mmol/LNormal3.6-5.1M[facility] HospitalComment on above:Performed By: #### 4768610, 2725817, 10133495, 3958752295 ####[facility] (DEFAULT)[address] [place] [address] 01462 Protein [Mass/Vol]7.6 g/dLNormal6.5-8.1M[facility] HospitalComment on above: Performed By: #### 1519254, 1028818, 70832083, 7444344745 ####[facility] (DEFAULT)[address] [place] [address] 38016Qopsew [Moles/Vol]136.0 mmol/L Cpmwev923.0-144.0[facility] HospitalComment on above:Performed By: #### 6444777, 9700130, 91834960, 9109905954 ####[facility] (DEFAULT)[address] [place] [address] 75091Dobt nitrogen [Mass/Vol]8 mg/dLNormal8-26[facility] ColumbusComment on above:Performed By: #### 7167572, 9684441, 15651720, 7359096448 ####[facility] (DEFAULT)[address] [place] [address] 25674 Urea nitrogen/Creatinine [Mass ratio]14.5 mg/mgNormal4.6-16.2[facility] Hospital Comment on above:Performed By: #### 9147534, 8947642, 63661652, 7140079781 ####[facility] (DEFAULT)[address] [place] [address] 20551SR Ykaqr8dn 25-33-4512ES Bacteria1+NormalUniversity Hospitals [facility] HospitalComment on above:Order Comment: Urinalysis Microscopic order added on by Dis[employer] Expert Rules system.Performed By: #### [id number], 42128785, 1828244 #### [facility] (DEFAULT) [address] [place] [address] 56737VW RBC0-2NormalUniversity Hospitals Portage [facility] Center HospitalComment on above:Order Comment: Urinalysis Microscopic order added on by Discern Expert Rules system. Performed By: #### [id number], 43005720, 1173033 #### [facility] (DEFAULT) [address] [place] [address] 56235UK Squam EpiNone SeenUniversity Hospitals Cleveland Medical Center HospitalComment on above:Order Comment: Urinalysis Microscopic order added on by [employer] Expert Rules system.Performed By: #### [id number], 01812867, 5933366 #### [facility] (DEFAULT) [address] [place] [address] 33071QH Urothelial CellsModerateAbnoAspirus Iron River Hospital HospitalComment on above:Order Comment: Urinalysis Microscopic order added on by [employer] Expert Rules system.Performed By: #### [id number], 02887548, 0198094 #### [facility] (DEFAULT) [address] [place] [address] 09551WV WBC0-2NormalUniversity Hospitals Portage Medical Center HospitalComment on above:Order Comment: Urinalysis Microscopic order added on by [employer] Expert Rules system. Performed By: #### [id number], 05532944, 8150858 #### [facility] (DEFAULT) [address] [place] [address] 64329BU w Culture if Ind Standardon 39-02-5036Apbvvuhncp UA NormalUniversity Hospitals [facility] Center HospitalComment on above:Performed By: #### [id number], 84688153, 7045399 #### [facility] (DEFAULT) [address] [place] [address] 65492Ldrbv (U)Dark YellowNormKettering Health Dayton HospitalComment on above:Performed By: #### [id number], 16677877, 0748607 #### [facility] (DEFAULT) [address] [place] [address] 33196Tzxzkwq?IndicatedInvalid Interpretation CodeUniversity Hospitals Portage Medical Center HospitalComment on above:Result Comment: Result created by rule GL_MAGR_ADD_UA_CULT Result created by rule GL_MAGR_ADD_UA_CULT Result created by rule GL_MAGR_ADD_UA_CULTPerformed By: #### [id number], 94406423, 5083701 #### [facility] (DEFAULT) [address] [place] [address] 16532Lctvykf (U) [Mass/Vol]NegativeNormalUniversity Hospitals Port[facility] Center Hospital Comment on above:Performed By: #### [id number], 16209013, 9432036 #### [facility] (DEFAULT) [address] [place] [address] 51416Ngcskuf Ql (U)>=80NormalUniversity Hospitals Portage Medical Center HospitalComment on above: Performed By: #### [id number], 61796194, 4935461 #### [facility] (DEFAULT) [address] [place] [address] 85031Yptch?IndicatedInvalid Interpretation CodeUniversity Hospitals Portage Medical Center HospitalComment on above:Result Comment: Result created by rule GL_MAGR_ADD_UA_MICROPerformed By: #### [id number], 24411003, 4651031 #### [facility] (DEFAULT) [address] [place] [address] 14061SQ BilirubinSMALLAbnormalUniversity Hospitals [facility] HospitalComment on above:Performed By: #### [id number], 65344049, 0546752 #### [facility] (DEFAULT) [address] [place] [address] 94466FM BloodNegativeNormalNEGATIVEUniversity Hospitals Portage [facility] Center HospitalComment on above:Performed By: #### [id number], 78519777, 4597217 #### [facility] (DEFAULT) [address] [place] [address] 75024GV ClarityCLEARNormalCLEARUniversity Hospitals Port[facility] Center HospitalComment on above:Performed By: #### [id number], 42018098, 5337608 #### [facility] (DEFAULT) [address] [place] [address] 84260EJ Leuk EstTRACEAbnormalNEGATIVEUniversity Hospitals Portage Medical Center HospitalComment on above:Performed By: #### [id number], 94052460, 7054611 #### [facility] (DEFAULT) [address] [place] [address] 36633MT NitriteNegativeNormalNEGATIVEUniversity Hospitals Port[facility] Center HospitalComment on above:Performed By: #### [id number], 01455445, 2442711 #### [facility] (DEFAULT) [address] [place] [address] 56548VJ pH7.4Wblbxu7-8Imamembr HospitalComment on above: Performed By: #### 0776714252, 72868797, 3431199 #### [facility] (DEFAULT) [address] [place] [address] 46030XV Ipjwnho49HpewtohyAPBRVGBVMmjcjrbw HospitalComment on above:Performed By: #### 5096217191, 96440496, 4107342 #### [facility] (DEFAULT) [address] [place] [address] 41365QP Spec Grav1.410Ciycuh7.001-1.035[facility] HospitalComment on above:Performed By: #### [id number], 93644917, 4196753 #### [facility] (DEFAULT) [address] [place] [address] 19954VZ Urobilinogen4.0 mg/dLAbnormal0.2-1.0[facility] Hospital Comment on above:Performed By: #### 0013840114, 16240062, 3291664 #### [facility] (DEFAULT) [address] [place] [address] 19715Nyzka SourceClean CatchNormalUniversity Hospitals [facility] HospitalComment on above:Performed By: #### [id number], 12094095, 6492609 #### [facility] (DEFAULT) [address] [place] [address] 05674uBY Quantitativeon 80-14-1705qIU Trnfconogkhw452723.0 mIU/mLHigh0.0-0.6Magrmercy health [facility] hospital HospitalComment on above:Result Comment: Result Confirmed by Dilution Post-Menopausal Reference Range is: 0.1-11.6 mIU/mLPerformed By: #### 4392627, 1052461, 58073156, [id number] ####[facility] (DEFAULT)[address] [place], [place] [address]YEO ( test) Ql (U)on 08-06-2024 Interpretation and [...] report is generated using voice recognition reporting (StartX). On occasion emo2 Ince erroneously drops words from the report or replaces the spoken word with similar sounding words. Please call with any questions/concerns regarding this report.* Dictated and transcribed 08/06/24/dpd This report has been electronically signed and approved by the interpreting radiologist.NormalNot AvailableComment on above:Order Comment: US OB TRANSVAGINAL No LMP recorded.Urinalysis macro (dipstick) panel (U)on 50-26-5705Vdwhnhpjv, UA PositiveNegative - 4(70) +++ mg/dLNOMS HealthcareComment [...] 12 mg/dLNOMS HealthcareNOMS HealthcareCBC WITH AUTO DIFFERENTIALon 77-07-3872MMNMZPCMS ABSOLUTE COUNT (10*3/UL) BY AUTOMATED COUNT0.1 10*3/uLNormalProMedica Orchard HospitalComment on above: Performed By: #### 2106-3 #### [facility] ([id number]) [address] [place] [address] 03143EWPMHQUCS RELATIVE PERCENT BY AUTOMATED COUNT0.7 %Normal [facility] HospitalComment on above:Performed By: #### 2106-3 #### [facility] ([id number]) [address] [place] [address] 09408XOSEPOGKVXD DIFFERENTIAL TYPEAUTOMATED DIFFERENTIALNormal [facility]red HealthcareComment on above:Performed By: #### 6-3 #### [facility] ([id number]) [address] [place] [address] 69820Dqrshemkqrj (Bld) [#/Vol]0.0 10*3/uLNormalKindred HealthcareComment on above:Performed By: #### 6-3 #### [facility] ([id number]) [address] [place] [address] 79468BCANXAOMUAS RELATIVE PERCENT BY AUTOMATED COUNT0.2 %Normal [facility] HealthcareComment on above:Performed By: #### 6-3 #### [facility] ([id number]) [address] [place] [address] 08973Jtivgsbgwcz distribution width (RBC) [Ratio]14.2 %Soyawh51.5-15 [facility] HealthcareComment on above:Performed By: #### 6-3 #### [facility] ([id number]) [address] [place] [address] 24166Auakafbood (Bld) [Volume fraction]40.0 %Powuvl22-90QqwMliepfKindred HealthcareComment on above:Performed By: #### 6-3 #### [facility] ([id number]) [address] [place] [address] 22854Csesmwrwwb (Bld) [Mass/Vol]13.4 g/nBQfwfaq35.7-15.5ProMedica Orchard HospitalComment on above:Performed By: #### 6-3 #### [facility] ([id number]) [address] [place] [address] 86451HGPGQYFLQBP ABSOLUTE COUNT (10*3/UL) BY AUTOMATED COUNT2.8 10*3/uLNoTriHealth McCullough-Hyde Memorial HospitalComment on above:Performed By: #### 6- 3 #### [facility] ([id number]) [address] [place] [address] 78722WUZCMEPFGEM RELATIVE PERCENT BY AUTOMATED COUNT23.8 %Normal [facility] HealthcareComment on above:Performed By: #### 2106-3 #### [facility] ([id number]) [address] [place] [address] 99673CVB (RBC) [Entitic mass]27.5 oxEuztsp04-26CvbAuqujkKindred HealthcareComment on above:Performed By: #### 2106-3 #### [facility] ([id number]) [address] [place] [address] [id number] (RBC) [Mass/Vol]33.5 g/kHYpgtqd96-89OerDqivoiKindred HealthcareComment on above:Performed By: #### 2106-3 #### [facility] ([id number]) [address] [place] [address] [id number] (RBC) [Entitic vol]82 lEKokcst55-314HcaKyfwwvKindred HealthcareComment on above:Performed By: #### 2106-3 #### [facility] ([id number]) [address] [place] [address] [id number] ABSOLUTE COUNT (10*3/UL) BY AUTOMATED COUNT0.9 10*3/uLNormalKindred HealthcareComment on above:Performed By: #### 2106- 3 #### [facility] ([id number]) [address] [place] [address] [id number] RELATIVE PERCENT BY AUTOMATED COUNT7.7 %Normal Kindred HealthcareComment on above:Performed By: #### 2106-3 #### [facility] ([id number]) [address] [place] [address] [id number] ABSOLUTE COUNT BY AUTOMATED COUNT8.0 10*3/uLNormal Kindred HealthcareComment on above:Performed By: #### 6-3 #### [facility] ([id number]) [address] [place] [address] 66814YQUYHCTIAMN RELATIVE PERCENT BY AUTOMATED COUNT67.6 %Normal Kindred HealthcareComment on above:Performed By: #### 6-3 #### [facility] ([id number]) [address] [place] [address] 52281Orcrgzae mean volume (Bld) [Entitic vol]9.1 fLNormal7-12 Kindred HealthcareComment on above:Performed By: #### 6-3 #### [facility] ([id number]) [address] [place] [address] 76400Salhgjqsv (Bld) [#/Vol]400 10*3/yOLsgmsr649-105NojPvljsvKindred HealthcareComment on above:Performed By: #### 6-3 #### [facility] ([id number]) [address] [place] [address], [place] [address]KHB COUNT4.88 X10E12/LNormal3.8-5.2PKettering Health Troy Comment on above:Performed By: #### 6-3 #### [facility] ([id number]) [address] [place] [address] 69473HHZ (Bld) [#/Vol]11.8 10*3/uLHigh4-11[facility] Comment on above:Performed By: #### 6-3 #### [facility] ([id number]) [address] [place] [address] 35661VMBWNSQWHFLVG METABOLIC PANELon 75-68-1185Jaskuqn [Mass/Vol]4.2 g/dLNormal3.2-5.3PKettering Health TroyComment on above:Performed By: #### 6-3 #### [facility] ([id number]) [address] [place] [address], [place] [address]ZOO [Catalytic activity/Vol]90 U/QDimvsq24-928SdiGynbcqConnally Memorial Medical CenterComment on above:Performed By: #### 6-3 #### [facility] ([id number]) [address] [place] [address], [place] [address]UYX [Catalytic activity/Vol]16 U/LNormal<=31PYampa Valley Medical Center HospitalComment on above:Result Comment: R-Specimen hemolyzed, results increased Performed By: #### 6-3 #### [facility] ([id number]) [address] [place] [address], [place] [address]Bakmy gap [Moles/Vol]9 mmol/LNormal5-15ProConnally Memorial Medical CenterComment on above:Performed By: #### 6-3 #### [facility] ([id number]) [address] [place] [address] 51217ZAV [Catalytic activity/Vol]27 U/LNormal<=41ProConnally Memorial Medical CenterComment on above:Result Comment: R-Specimen hemolyzed, results increased Performed By: #### 6-3 #### [facility] ([id number]) [address] [place] [address] 45135Cgebyvioj [Mass/Vol]1.2 mg/dLNormal0.3-1.2PKettering Health TroyComment on above:Result Comment: R-Results questionable due to hemolysis Performed By: #### 6-3 #### [facility] ([id number]) [address] [place] [address] 33680Ydxporj [Mass/Vol]9.2 mg/dLNormal8.5-10.5PYampa Valley Medical Center HospitalComment on above:Performed By: #### 6-3 #### [facility] ([id number]) [address] [place] [address], [place] [address]Gesccsxs [Moles/Vol]103 mmol/YGlfeuk16-695MafPbwgwzKindred HealthcareComment on above:Performed By: #### 2106-3 #### [facility] ([id number]) [address] [place] [address] 97257SH1 [Moles/Vol]22 mmol/IHtlfxf46-18FydEqnwohKettering Health Troy Comment on above:Performed By: #### 6-3 #### [facility] ([id number]) [address] [place] [address] 56488Iewjaiwddo [Mass/Vol]0.70 mg/dLNormal0.40-1.00Kindred HealthcareComment on above:Result Comment: METHOD TRACEABLE TO IDMS STANDARD Performed By: #### 2106-3 #### [facility] ([id number]) [address] [place] [address] 88780UCIQ (CKD-EPI) NON-RACE DEPENDENT>^90Normal>=60Kindred HealthcareComment on above:Result Comment: Reported eGFR is based on the CKD-EPI 2020 equation that does not use a race coefficient.Performed By: #### 2106-3 #### [facility] ([id number]) [address] [place] [address] 27223Nbbuljg [Mass/Vol]86 mg/rGHheust32-04IrwBvlngzKindred Healthcare Comment on above:Performed By: #### 2106-3 #### [facility] ([id number]) [address] [place] [address] 74538Sowjtcihh [Moles/Vol]4.2 mmol/LNormal3.5-5.0Kindred HealthcareComment on above:Result Comment: R-Specimen hemolyzed, results increased Performed By: #### 2106-3 #### [facility] ([id number]) [address] [place] [address] 81712Ukzvcit [Mass/Vol]8.1 g/dLHigh6.0-8.0[facility] Comment on above:Performed By: #### 6-3 #### [facility] ([id number]) [address] [place] [address], [place] [address]Mxkfco [Moles/Vol]134 mmol/NSmvsmn037-508EtyNxzcqc [facility]remont HospitalComment on above:Performed By: #### 6-3 #### [facility] ([id number]) [address] [place] [address], [place] [address]Zwbf nitrogen [Mass/Vol]9 mg/dLNormal5-23Kindred HealthcareComment on above:Performed By: #### 6-3 #### [facility] ([id number]) [address] [place] [address] 40461RD EXTRA URINEon 40-18-8146NB EXTRA URINEERU ER EXTRA URINE CancelledNoalKindred HealthcareComment on above:Order Comment: A extra urine specimen no testing is neededMAGNESIUMon 84-66-6893Dijhnqqua [Mass/Vol] 2.1 mg/dLNormal1.8-2.6Kindred HealthcareComment on above:Result Comment: R-Specimen hemolyzed, results increasedPerformed By: #### 6-3 #### [facility] ([id number]) [address] [place] [address], [place] [address]BCWH NURSING URINE MACROSCOPIC UAon 63-82-9362OYXAXCWGT NEHA SmallAbnormalNegSelect Medical OhioHealth Rehabilitation Hospital - DublinComment on above:Performed By: #### 6-3 #### [facility] ([id number]) [address] [place] [address] 21943TFFTY/HGB NURSmallAbnormalNegSelect Medical [facility] Comment on above:Performed By: #### 6-3 #### [facility] ([id number]) [address] [place] [address] [place] [address]NQHLTSU NURNegativeNormalNegativeKindred Healthcare Comment on above:Performed By: #### 2106-3 #### [facility] ([id number]) [address] [place] [address], [place] [address]DLEOBUA NUR15 mg/dLAbnormalNegativeKindred Healthcare Comment on above:Performed By: #### 6-3 #### [facility] ([id number]) [address] [place] [address], [place] [address]IGIRTBOPZ ESTERASE NURNegativeNormalNegativeKindred HealthcareComment on above:Performed By: #### 6-3 #### [facility] ([id number]) [address] [place] [address] 08544MBDJELI NURNegativeNormalNegativeKindred Healthcare Comment on above:Performed By: #### 6-3 #### [facility] ([id number]) [address] [place] [address], [place] [address]UE NUR7.0Laotro1.0, 6.0, 6.5, 7.0, 7.5, 8.0, 8.5, 5.5ProMedica Orchard HospitalComment on above:Performed By: #### 6-3 #### [facility] ([id number]) [address] [place] [address], [place] [address]CQQGQEH AHX931 mg/dLAbnormalNegativeKindred Healthcare Comment on above:Performed By: #### 6-3 #### [facility] ([id number]) [address] [place] [address], [place] [address]NHWLISPB GRAVITY NUR1.025Abnormal(none)ProMedica Orchard HospitalComment on above:Performed By: #### 6-3 #### [facility] ([id number]) [address], [place] [address]VRXUVVUIBBGD NUR1.0 E.U./dLNormal0.2 E.U./dL, 1.0 E.U./dL [facility] Orchard HospitalComment on above:Performed By: #### 2106-3 #### [facility] ([id number]) [address] [place] [address] 52334HIXM , URINE (NUCG)on 59-36-6422Vbjx HCG ( test) Ql (U)PositiveAbnormalNegativeKindred HealthcareComment on above: Performed By: #### 2106-3 #### [facility] ([id number]) [address] [place] [address] 19098PS PREG LESS THAN 14 WKS SINGLEon 72-18-5874GR PREG LESS THAN 14 WKS SINGLEUS PREG LESS THAN 14 WKS SINGLE US PREG LESS THAN 14 WKS SINGLE CLINICAL INDICATION: vomiting FINDINGS: limited transabdominal ultrasound of the pelvis. UTERUS AND GESTATIONAL SAC: Intrauterine gestation: Single. Gestational sac: Intrauterine. Yolk sac: 0.3 cm [place]-rump length (CRL): 1.6 cm heart motion: 174 [...] limits for transabdominal technique. Finalized by Brett Guteirrez on 08/03/2024 12:52 PMNormalKindred Healthcare COMPREHENSIVE METABOLIC PANELon 16-28-2010Qoiskld [Mass/Vol]4.2 g/dLNormal 3.2-5.3ProMedica Orchard HospitalComment on above:Performed By: #### NUM #### [facility] ([id number]) [address] [place] [address], [place] [address]MEG [Catalytic activity/Vol]95 U/GIbyuec00-858EbfLtgnbdConnally Memorial Medical CenterComment on above:Performed By: #### NUM #### [facility] ([id number]) [address] [place] [address], [place] [address]IYZ [Catalytic activity/Vol]19 U/LNormal0-31PKettering Health TroyComment on above:Performed By: #### NUM #### [facility] ([id number]) [address] [place] [address], [place] [address]Bnqrk gap [Moles/Vol]11 mmol/LNormal5-15ProConnally Memorial Medical CenterComment on above:Performed By: #### NUM #### [facility] ([id number]) [address] [place] [address], [place] [address]JQA [Catalytic activity/Vol]19 U/LNormal0-41ProConnally Memorial Medical CenterComment on above:Performed By: #### NUM #### [facility] ([id number]) [address] [place] [address], [place] [address]Hbvhvevex [Mass/Vol]0.5 mg/dLNormal0.3-1.2PKettering Health TroyComment on above:Performed By: #### NUM #### [facility] ([id number]) [address] [place] [address], [place] [address]Rhucyts [Mass/Vol]9.2 mg/dLNormal8.5-10.5PKettering Health TroyComment on above:Performed By: #### NUM #### [facility] ([id number]) [address] [place] [address], [place] [address]Qzbalpnt [Moles/Vol]104 mmol/BJswjcj60-555TbsEvrxuu [facility]remont HospitalComment on above:Performed By: #### NUM #### [facility] ([id number]) [address] [place] [address] 10889XB1 [Moles/Vol]20 mmol/CQvx67-76UkjHjmpyuKettering Health Troy Comment on above:Performed By: #### NUM #### [facility] ([id number]) [address] [place] [address] 64750Ldezpnpzrs [Mass/Vol]0.68 mg/dLNormal0.40-1.00ProConnally Memorial Medical CenterComment on above:Result Comment: METHOD TRACEABLE TO IDMS STANDARD Performed By: #### NUM #### [facility] ([id number]) [address] [place] [address] 58385fMXM (CKD-EPI) NON-RACE DEPENDENT>90Normal>59ProConnally Memorial Medical CenterComment on above:Result Comment: Reported eGFR is based on the CKD-EPI 2020 equation that does not use a race coefficient.Performed By: #### NUM #### [facility] ([id number]) [address] [place] [address] 04089Xujytvx [Mass/Vol]81 mg/aIFrwxxh74-70PdzNrdvdpKindred Healthcare Comment on above:Performed By: #### NUM #### [facility] ([id number]) [address] [place] [address] 17209Evecgivfh [Moles/Vol]4.7 mmol/LNormal3.5-5.0ProConnally Memorial Medical CenterComment on above:Performed By: #### NUM #### [facility] ([id number]) [address] [place] [address] 36117Ycxcpzd [Mass/Vol]7.9 g/dLNormal6.0-8.0ProConnally Memorial Medical CenterComment on above:Performed By: #### NUM #### [facility] ([id number]) [address] [place] [address] 65604Klmwmr [Moles/Vol]135 mmol/SOqhukm097-740GjeHqkoexKindred HealthcareComment on above:Performed By: #### NUM #### [facility] ([id number]) [address] [place] [address] 55809Lpta nitrogen [Mass/Vol]10 mg/dLNormal5-Kindred HealthcareComment on above:Performed By: #### NUM #### [facility] ([id number]) [address] [place] [address] 01995LBV ( test) Ql (U)on 36-74-2730Qlpo HCG ( test) Ql (U)PositiveAbnormalNEGProConnally Memorial Medical CenterComment on above: Performed By: #### 2106-3 #### [facility] ([id number]) [address] [place] [address] 14023NVX.beta subunit IA 3rd IS Qnon 26-26-4905[place] [address] m[IU]/mLNormalProConnally Memorial Medical CenterComment on above:Result Comment: NEW REFERENCE [...] nontrophoblastic neoplasms. Performed By: #### NUM #### [facility] ([id number]) [address] [place] [address] 44709KYLNEXxh 73-90-5404Afrvzh [Catalytic activity/Vol]31 U/LNormal 17-40ProConnally Memorial Medical CenterComment on above:Performed By: #### NUM #### [facility] ([id number]) [address] [place] [address] 37321TWQNQ CULTUREon 20-69-5974Rcuitgit identified Cx Nom (U)CULTURE RESULTS >100,000 ORGANISMS/ML NORMAL UROGENITAL FLORANormalKindred Healthcare Comment on above:Performed By: #### 2106-3 #### [facility] ([id number]) [address] [place] [address], [place] [address]NLZ MACROSCOPIC NURon 98-71-4017ESTECNJUU NURNegativeNormalNEG Kindred HealthcareComment on above:Performed By: #### NUM #### [facility] ([id number]) [address] [place] [address] 66836KISBN/HGB NURNegativeNormalNEGKindred HealthcareComment on above:Performed By: #### NUM #### [facility] ([id number]) [address] [place] [address] 26268REWQRAV NURNegativeNormalNEGKindred HealthcareComment on above:Performed By: #### NUM #### [facility] ([id number]) [address] [place] [address] 39137NWKHOSE NUR15 mg/dLAbnormalNEGKindred HealthcareComment on above:Performed By: #### NUM #### [facility] ([id number]) [address] [place] [address] 29879GXHZFELBD ESTERASE NURNegativeNormalNEGKindred HealthcareComment on above:Performed By: #### NUM #### [facility] ([id number]) [address] [place] [address] 44407ANGHKPI NURNegativeNormalNEGProConnally Memorial Medical CenterComment on above:Performed By: #### NUM #### [facility] ([id number]) [address] [place] [address] 50800LQ NUR7.0Debyvj0.0-8.5PKettering Health TroyComment on above:Performed By: #### NUM #### [facility] ([id number]) [address] [place] [address] 49291SYAYMIS NURNegativeNormalNEGProConnally Memorial Medical CenterComment on above:Performed By: #### NUM #### [facility] ([id number]) [address] [place] [address] 15460PYNEJQWZ GRAVITY NUR1.046Eylpuu1.003-1.035ProConnally Memorial Medical CenterComment on above:Performed By: #### NUM #### [facility] ([id number]) [address] [place] [address] 00978OTEFENFVTKGR NUR0.2 eu/dLNormal<1.1PKettering Health Troy Comment on above:Performed By: #### NUM #### [facility] ([id number]) [address] [place] [address] 60275YIH PREG QUANT HCGon 02-20-7149EZB OQHSMKHLAPSS87zUR/mLNOMS HealthcareComment on above:5-50 0.2-1 WEEK 50-500 1-2 WEEKS 100-5,000 2-3 WEEKS 500-10,000 3-4 WEEKS 1,000-50,000 4-5 WEEKS 10,000-100,000 5-6 WEEKS 15,000-200,000 6-8 WEEKS 10,000-100,000 2-3 MONTHS CLINISYNCNOMS HealthcareTBH PREG QUANT HCGon 66-14-3825AYW OLOZGOHUZBIG92cAG/mL NOMS HealthcareComment on above:5-50 0.2-1 WEEK 50-500 1-2 WEEKS 100-5,000 2-3 WEEKS 500-10,000 3-4 WEEKS 1,000-50,000 4-5 WEEKS 10,000-100,000 5-6 WEEKS 15,000-200,000 6-8 WEEKS 10,000-100,000 2-3 MONTHS CLINISYNCNOMS HealthcareCoding Summaryon 35-21-6259Ljqian SummaryHTMLBase 64 TpnnvqosALo9tHq+PGhlYWQ+ZT8TSXNyB25tpMWaeJ4eJ9DSJKaWTrvlAZFVRHlFLsGtldXvSG0qvSZq ZXJu [file] ZXI (more content not included)...NormalUniversity [facility] Hospital.Auto Diff 1on 04-24-8186Ffwu Boyd %6 %Normal1-12[facility] HospitalComment on above:Performed By: #### [id number], [id number], [id number] #### [facility] (DEFAULT) [address] [place] [address] 73833Hysy Abs#0.0 e63Pucitn7.0-0.2Mmercer county community hospital HospitalComment on above:Performed By: #### [id number], [id number], [id number] #### [facility] (DEFAULT) [address] [place] [address] 24049Dhyuegkjg/100 WBC (Bld)0.6 %Normal0.2-2.0[facility] Comment on above:Performed By: #### [id number], [id number], [id number] #### [facility] (DEFAULT) [address] [place] [address] 38408Wmo Abs#0.1 l45Yajggu2.0-0.4Children'S Hospital Of ColumbusComment on above:Performed By: #### [id number], [id number], 0505126 #### [facility] (DEFAULT) [address] [place] [address] 77668Rjijcakvvgf/100 WBC (Bld)0.8 %Low0.9-4.0[facility] Comment on above:Performed By: #### [id number], [id number], [id number] #### [facility] (DEFAULT) [address] [place] [address] 26988Hmhiw Abs#2.9 q36Vsethw7.3-2.9[facility] HospitalComment on above:Performed By: #### [id number], [id number], 6990935 #### [facility] (DEFAULT) [address] [place] [address] 84586Nlixsazggjq/100 WBC (Bld)36 %Gplyfx15-35Yuuuuxxz Hospital Comment on above:Performed By: #### [id number], [id number], 5477835 #### [facility] (DEFAULT) [address] [place] [address] 05994Lkld Abs#0.5 l93Ycoynm9.0-0.8[facility] HospitalComment on above:Performed By: #### [id number], [id number], 6660866 #### [facility] (DEFAULT) [address] [place] [address] 14939Nipw Abs#4.4 x32Zfbtzp7.5-9.2Mmer[facility] community hospital HospitalComment on above:Performed By: #### [id number], [id number], [id number] #### [facility] (DEFAULT) [address] [place] [address] 79674Ggqjcurbaid/100 WBC (Bld)56 %Qjknuo64-75[facility] Comment on above:Performed By: #### [id number], [id number], 0574767 #### [facility] (DEFAULT) [address] [place] [address] 05792PSM w/ Auto Diffon 95-87-8713Zdgzgfsmgou distribution width (RBC) [Ratio]14.5 %Shihov99.5-15.0[facility] HospitalComment on above: Performed By: #### [id number], [id number], 9051136 #### [facility] (DEFAULT) [address] [place] [address] 96670Ebmxxbqfoz (Bld) [Volume fraction]37.2 %Zjfamm49.7-40.4 [facility] HospitalComment on above:Performed By: #### [id number], 77816869, 6188014 #### [facility] (DEFAULT) [address] [place] [address] 28280Reeonezjmo (Bld) [Mass/Vol]12.3 g/fDSpgmqc42.3-15.9 [facility] ColumbusComment on above:Performed By: #### [id number], [id number], 4555423 #### [facility] (DEFAULT) [address] [place] [address] 33401Eqo Diff?AutoInvalid Interpretation [facility] Comment on above:Performed By: #### [id number], [id number], 1207561 #### [facility] (DEFAULT) [address] [place] [address] 75697LDO (RBC) [Entitic mass]27 jfIbxrki36-66Alzlbfbt Hospital Comment on above:Performed By: #### [id number], 73810804, 2601610 #### [facility] (DEFAULT) [address] [place] [address] 90485REHE (RBC) [Mass/Vol]33 g/sWYrraiv73-15Bdjipvei Hospital Comment on above:Performed By: #### [id number], [id number], 3500837 #### [facility] (DEFAULT) [address] [place] [address] 39120NSL (RBC) [Entitic vol]82 jWQitmtl37-552Giisqohk Hospital Comment on above:Performed By: #### [id number], 52106044, 0441430 #### [facility] (DEFAULT) [address] [place] [address] 13563Qbpuclzi456 r86Fexngs723-664Hlgjtbag HospitalComment on above:Performed By: #### [id number], 47720964, 1269477 #### [facility] (DEFAULT) [address] [place] [address] 94103Osxyohbm mean volume (Bld) [Entitic vol]8.6 fLNormal 6.3-10.2MChillicothe VA Medical CenterComment on above:Performed By: #### [id number], [id number], 8586499 #### [facility] (DEFAULT) [address] [place] [address] 37809HYK9.51 l96Ydizsr8.70-5.30[facility] HospitalComment on above:Performed By: #### [id number], 01989282, 6348245 #### [facility] (DEFAULT) [address] [place] [address] 34954CFT7.8 g06Abustb3.5-10.5[facility] HospitalComment on above: Performed By: #### [id number], [id number], 2649392 #### [facility] (DEFAULT) [address] [place] [address] 42099YIY Standardon 91-47-4256tCHN Non AA>60Invalid Interpretation CodeChildren'S Hospital Of ColumbusComment on above:Performed By: #### [id number], [id number], 8527175 #### [facility] (DEFAULT) [address] [place] [address] 26040cIQX AA>60Invalid Interpretation [facility] Comment on above:Performed By: #### [id number], [id number], 4280614 #### [facility] (DEFAULT) [address] [place] [address] 04710Dzluved [Mass/Vol]3.8 g/dLNormal3.5-5.0[facility] Comment on above:Performed By: #### [id number], 02033281, 3639773 #### [facility] (DEFAULT) [address] [place] [address] 98267Dwpdfps/Globulin [Mass ratio]1.1 {ratio}Low1.4-2.6Mmer[facility] hospital HospitalComment on above:Performed By: #### [id number], [id number], 8670197 #### [facility] (DEFAULT) [address] [place] [address] 24727Nzu Phos79 IU/JSgrffe88-21Evphsxez HospitalComment on above:Performed By: #### [id number], 21674844, 2628056 #### [facility] (DEFAULT) [address] [place] [address] 76502DSB [Catalytic activity/Vol]21.0 U/XHksgcn86.0-54.0 [facility] ColumbusComment on above:Performed By: #### [id number], [id number], [id number] #### [facility] (DEFAULT) [address] [place] [address] 45384Mqicg gap [Moles/Vol]3.6 mmol/LLow5.0-19.0[facility] HospitalComment on above:Performed By: #### [id number], [id number], [id number] #### [facility] (DEFAULT) [address] [place] [address] [id number] [Catalytic activity/Vol]18 U/RKsgwuz85-40Poyjukfs HospitalComment on above:Performed By: #### [id number], [id number], [id number] #### [facility] (DEFAULT) [address] [place] [address] [id number] Total0.5 mg/dLNormal0.3-1.2MChillicothe VA Medical CenterComment on above:Performed By: #### [id number], [id number], [id number] #### [facility] (DEFAULT) [address] [place] [address] 02725Wfymbdg [Mass/Vol]8.2 mg/dLLow8.9-10.3[facility] Comment on above:Performed By: #### [id number], [id number], [id number] #### [facility] (DEFAULT) [address] [place] [address] 61767Mvrpxscd [Moles/Vol]113 mmol/KXvmr075-303[facility] Comment on above:Performed By: #### [id number], [id number], [id number] #### [facility] (DEFAULT) [address] [place] [address] 98020VX9 [Moles/Vol]24 mmol/AQrzazv20-04Hpvdkbuc [facility] Comment on above:Performed By: #### [id number], [id number], [id number] #### [facility] (DEFAULT) [address] [place] [address] 99040Dzwkwndyto [Mass/Vol]0.67 mg/dLNormal0.60-1.30[facility] HospitalComment on above:Performed By: #### [id number], [id number], [id number] #### [facility] (DEFAULT) [address] [place] [address] [id number] (S) [Mass/Vol]3.3 g/dLNormal1.5-4.3Magrmer[facility] HospitalComment on above:Performed By: #### [id number], [id number], [id number] #### [facility] (DEFAULT) [address] [place] [address] 31605Kpcmrrd [Mass/Vol]92.0 mg/uHHmamej56.0-118.0[facility] HospitalComment on above:Performed By: #### [id number], [id number], [id number] #### [facility] (DEFAULT) [address] [place] [address] 61703Cxffdodrcx134 mOsm/LInvalid Interpretation CodeUniversity Hospitals Portage Medical Center HospitalComment on above:Performed By: #### [id number], [id number], [id number] #### [facility] (DEFAULT) [address] [place] [address] 92646Oklovegik [Moles/Vol]3.6 mmol/LNormal3.6-5.1Mmercer [facility] hospital HospitalComment on above:Performed By: #### [id number], [id number], [id number] #### [facility] (DEFAULT) [address] [place] [address] 98276Bauhdmo [Mass/Vol]7.1 g/dLNormal6.5-8.1Magrmercy health [facility] Hospital Comment on above:Performed By: #### [id number], [id number], [id number] #### [facility] (DEFAULT) [address] [place] [address] 75546Wkbluz [Moles/Vol]137.0 mmol/UTjqegz506.0-144.0[facility] HospitalComment on above:Performed By: #### [id number], [id number], [id number] #### [facility] (DEFAULT) [address] [place], [place] [address]Hgvj nitrogen [Mass/Vol]11 mg/dLNormal8-26[facility] HospitalComment on above:Performed By: #### [id number], [id number], [id number] #### [facility] (DEFAULT) [address] [place] [address] 67980Sdgw nitrogen/Creatinine [Mass ratio]16.4 mg/mgHigh 4.6-16.2Mmercer county community hospital HospitalComment on above:Performed By: #### [id number], [id number], [id number] #### [facility] (DEFAULT) [address] [place] [address] 35152BR Note-Nursingon 28-84-9493BL Note-NursingPT. C/O left sided flank pain that [...] A&O x4. PT. has a steady gait. [facility] HospitalExtra Redon 76-84-2017Phpp CollectedYesInvalid Interpretation Code [facility] ColumbusComment on above:Performed By: #### [id number], [id number], [id number] #### [facility] (DEFAULT) [address] [place] [address] 46643EY Standardon 10-08-2634Zrjewevogj UANormal [facility] Hospital Of ColumbusComment on above:Performed By: #### [id number] ####[facility] (DEFAULT)[address] [place] [address] 31378Ampjm (U)YellowNormal [facility] Hospital Of ColumbusComment on above:Performed By: #### [id number] ####[facility] (DEFAULT)[address] [place] [address] 46267Rufttbs (U) [Mass/Vol] NegativeNormalMagrmercy health fairfield hospital HospitalComment on above:Performed By: #### [id number] ####[facility] (DEFAULT)[address] [place] [address] 50159Kwsplyz Ql (U)NegativeNormalMagrmercy health fairfield hospital HospitalComment on above:Performed By: #### [id number] ####[facility] (DEFAULT)[address] [place] [address] 05962UG BilirubinNegativeNormalMagrmercy health fairfield hospital HospitalComment on above:Performed By: #### [id number] ####[facility] (DEFAULT)[address] [place] [address] 68137GI BloodMODERATEAbnormalNEGATIVEUniversity Hospitals Port[facility] Center HospitalComment on above: Performed By: #### [id number] ####[facility] (DEFAULT)[address] [place] [address] 07386XZ ClarityCLEARNormalCLEARUniversity Hospitals [facility] Center HospitalComment on above:Performed By: #### [id number] ####[facility] (DEFAULT)[address] [place] [address] 58049XV Leuk EstNegativeNormalNEGATIVEUniversity Hospitals Port[facility] Center Hospital Comment on above:Performed By: #### [id number] ####[facility] (DEFAULT)[address] [place] [address] 77576JM NitriteNegativeNormalNEGATIVE [facility] HospitalComment on above:Performed By: #### [id number] ####[facility] (DEFAULT)[address] [place] [address] 44646RU pH6.6Abfieq1-9 [facility] HospitalComment on above:Performed By: #### [id number] ####[facility] (DEFAULT)[address] [place] [address] 81654VM ProteinNegative NormalNEGATIVEUniversity Hospitals Portage Medical Center HospitalComment on above:Performed By: #### [id number] ####[facility] (DEFAULT)[address] [place] [address] 40101BB Spec Grav>=1.227Mrzlgq2.001-1.035Magruder HospitalComment on above:Performed By: #### [id number] ####[facility] (DEFAULT)[address] [place], [place] [address]KF Urobilinogen0.2 mg/dLNormal0.2-1.0[facility] Hospital Of ColumbusComment on above: Performed By: #### [id number] ####[facility] ([facility])[address] [place], [place] [address]Wxxqx SourceClean [facility] Comment on above:Performed By: #### [id number] ####[facility] (DEFAULT)[address] [place], [place] [address]EV 1st Trimesteron 78-76-8428KT 1st TrimesterEXAMINATION: US 1st Trimester, US Transvaginal [...] Apolinar Toussaint MD 06/07/24 1:58 pm Technologist: [facility]IAW[facility] CenterUS Transvaginalon 46-07-7924YZ TransvaginalEXAMINATION: US 1st Trimester, US Transvaginal REASON [...] Apolinar Toussaint MD 06/07/24 1:58 pm Technologist: [facility] CenterhCG Quantitativeon 41-69-0418yWM Quantitative5.2 mIU/mLHigh0.0-0.6MChillicothe VA Medical CenterComment on above:Result Comment: Post-Menopausal Reference Range is: 0.1-11.6 mIU/mLPerformed By: #### [id number], [id number], [id number] #### [facility] (DEFAULT) [address] [place] [address] 50941Rzmgtk Summaryon 64-95-4952Sdppjl SummaryBEAVER VALLEY HOSPITALBase 64 FfgpcyejWRm9lMr+PGhlYWQ+WN7WGQCoT77bjSJwgW2vL7ORTDhFIayfLNWJPIxFUfOmvaJbRR2vyYZh ZXJu [file] YXB (more content not included)...[facility] HospitalCoding SummaryHTMLBase 64 LvsuwjkaZWs8dWt+PGhlYWQ+PG8XRLIyQ46bzVTpkQ6jS0CEISmSJiswCNYCNPaFIaSgdzWlKF1xqDAx ZXJu [file] c3R (more content not included)...NormalMagrmercy health fairfield hospital HospitalProvider Orderson 46-70-8414Qwbqzgco [id number]#1.00OTGTIFF NormalUniversity Hospitals Port[facility] Center HospitalhCG Quantitativeon 80-40-7950xXM Jjlpjwmdoigj29.7 mIU/mL High0.0-0.6Magrmercy health fairfield hospital HospitalComment on above:Result Comment: Post-Menopausal Reference Range is: 0.1-11.6 mIU/mLPerformed By: #### [id number], [id number], [id number] #### [facility] (DEFAULT) [address] [place] [address] 83747Ezmwsdrb Orderson 31-32-9416Lfhknhwx Orders [id number]#1.00OTGTIFFNormalUniversity Hospitals [facility] HospitalhCG Quantitativeon 78-23-3644oBZ Osobqdkzqwcq361.4 mIU/mLHigh0.0-0.6Mmercer county community hospital HospitalComment on above:Result Comment: Post-Menopausal Reference Range is: 0.1-11.6 mIU/mLPerformed By: #### [id number] ####[facility] (DEFAULT)[address] [place] [address] 16305LMXCV METABOLIC PANLon 97-12-4652Ijsyr gap [Moles/Vol]8 mmol/LNormal5-15ProConnally Memorial Medical CenterComment on above: Performed By: #### NUM #### [facility] ([id number]) [address] [place] [address] 48959Nirtrwj [Mass/Vol]8.9 mg/dLNormal8.5-10.5ProMedica Orchard HospitalComment on above:Performed By: #### NUM #### [facility] ([id number]) [address] [place] [address] 08921Ehpmrbfb [Moles/Vol]108 mmol/SRvbzeu42-606IipNxqziwConnally Memorial Medical CenterComment on above:Performed By: #### NUM #### [facility] ([id number]) [address] [place] [address] 14957AL7 [Moles/Vol]21 mmol/BRod30-95UtoKlwgqxKettering Health Troy Comment on above:Performed By: #### NUM #### [facility] ([id number]) [address] [place] [address] 21264Japnxdayku [Mass/Vol]0.60 mg/dLNormal0.40-1.00ProConnally Memorial Medical CenterComment on above:Result Comment: METHOD TRACEABLE TO IDMS STANDARD Performed By: #### NUM #### [facility] ([id number]) [address] [place] [address] 15000bFXZ (CKD-EPI) NON-RACE DEPENDENT>90Normal>59ProConnally Memorial Medical CenterComment on above:Result Comment: Reported eGFR is based on the CKD-EPI 2020 equation that does not use a race coefficient.Performed By: #### NUM #### [facility] ([id number]) [address] [place] [address] 76674Wntoykr [Mass/Vol]99 mg/rORdokpz25-46LlfVidyfxKindred Healthcare Comment on above:Performed By: #### NUM #### [facility] ([id number]) [address] [place] [address] 62700Ovvaffacc [Moles/Vol]3.7 mmol/LNormal3.5-5.0ProConnally Memorial Medical CenterComment on above:Performed By: #### NUM #### [facility] ([id number]) [address] [place] [address], [place] [address]Mdmpqv [Moles/Vol]137 mmol/XQljnun827-365XlaLekwkx [facility]ont HospitalComment on above:Performed By: #### NUM #### [facility] ([id number]) [address] [place] [address] 79431Uqwf nitrogen [Mass/Vol]10 mg/dLNormal5-23ProConnally Memorial Medical CenterComment on above:Performed By: #### NUM #### [facility] ([id number]) [address] [place] [address], [place] [address]IIY AND AUTO DIFFon 80-17-7535HVLJBUTR BASOPHIL0.1 X10E9/L Normal0.0-0.2ProMedMattel Children's Hospital UCLAComment on above:Performed By: #### NUM #### [facility] ([id number]) [address] [place] [address], [place] [address]GXTGKFQB NEUTROPHIL5.9 X10E9/LNormal1.5-6.6ProConnally Memorial Medical CenterComment on above:Performed By: #### NUM #### [facility] ([id number]) [address] [place] [address] 11683Zuqftkpfs/100 WBC (Bld)0.9 %NormalKindred Healthcare Comment on above:Performed By: #### NUM #### [facility] ([id number]) [address] [place] [address], [place] [address]Hwytvuogutp (Bld) [#/Vol]0.1 10*3/uLNormal0.0-0.4Kindred HealthcareComment on above:Performed By: #### NUM #### [facility] ([id number]) [address] [place] [address], [place] [address]Eimfteehias/100 WBC (Bld)0.7 %NormalKindred Healthcare Comment on above:Performed By: #### NUM #### [facility] ([id number]) [address] [place] [address] 14164Tkgumfzhbdu distribution width (RBC) [Ratio]14.8 %Normal 11.5-15.0Kindred HealthcareComment on above:Performed By: #### NUM #### [facility] ([id number]) [address] [place] [address] 06008Tppmkmftwr (Bld) [Volume fraction]37.5 %Sflztv58-35VswOphayqConnally Memorial Medical CenterComment on above:Performed By: #### NUM #### [facility] ([id number]) [address] [place] [address] 47260Txmigsisvt (Bld) [Mass/Vol]12.3 g/rDUnbwdf48.7-15.5PKettering Health TroyComment on above:Performed By: #### NUM #### [facility] ([id number]) [address] [place] [address] 58536Lhvytcuheqr (Bld) [#/Vol]4.5 10*3/uLHigh1.0-3.5PKettering Health TroyComment on above:Performed By: #### NUM #### [facility] ([id number]) [address] [place] [address] 47768Uttnjasztdh/100 WBC (Bld)39.5 %NormalProConnally Memorial Medical Center Comment on above:Performed By: #### NUM #### [facility] ([id number]) [address] [place] [address] 91124PNM (RBC) [Entitic mass]27.0 lzUgidjr09-64BhbQfvemxConnally Memorial Medical CenterComment on above:Performed By: #### NUM #### [facility] ([id number]) [address] [place] [address] 94819FKSE (RBC) [Mass/Vol]32.8 g/eTLubklo29-31VnxQwesrhConnally Memorial Medical CenterComment on above:Performed By: #### NUM #### [facility] ([id number]) [address] [place] [address] 27502IHB (RBC) [Entitic vol]82 mVWknsms31-466MutZhycdw [facility] HospitalComment on above:Performed By: #### NUM #### [facility] ([id number]) [address] [place] [address], [place] [address]Onbfpxulz (Bld) [#/Vol]0.8 10*3/uLNormal0-0.9Kindred HealthcareComment on above:Performed By: #### NUM #### [facility] ([id number]) [address] [place] [address] 25129Omnalxygk/100 WBC (Bld)7.2 %NormalKindred Healthcare Comment on above:Performed By: #### NUM #### [facility] ([id number]) [address] [place] [address] 85530Zywjeucuwqn/100 WBC (Bld)51.7 %[facility] Comment on above:Performed By: #### NUM #### [facility] ([id number]) [address] [place] [address] 84902Vlhttozv mean volume (Bld) [Entitic vol]8.9 fLNormal7-12 Kindred HealthcareComment on above:Performed By: #### NUM #### [facility] ([id number]) [address] [place] [address], [place] [address]Elumnqaiz (Bld) [#/Vol]393 10*3/rVUwftnb439-016HslDtoxpwKindred HealthcareComment on above:Performed By: #### NUM #### [facility] ([id number]) [address] [place] [address] 50314WKR COUNT4.56 X10E12/LNormal3.80-5.20[facility] Comment on above:Performed By: #### NUM #### [facility] ([id number]) [address] [place] [address] 72982BHX (Bld) [#/Vol]11.3 10*3/uLHigh4.0-11.0ProConnally Memorial Medical CenterComment on above:Performed By: #### NUM #### [facility] ([id number]) [address] [place] [address] 68126WZW ( test) Ql (U)on 21-12-1047Idyd HCG ( test) Ql (U)PositiveAbnormalNEGKindred HealthcareComment on above: Performed By: #### NUM #### [facility] ([id number]) [address] [place] [address] 14933IPG.beta subunit IA 3rd IS Qnon 86-91-8322OGX.beta subunit Qn 612 m[IU]/mLNormalKindred HealthcareComment on above:Result Comment: NEW REFERENCE RANGE WEEKS [...] nontrophoblastic neoplasms. Performed By: #### NUM #### [facility] ([id number]) [address] [place] [address] 10200CXZ MACROSCOPIC NURon 62-93-8447LVUNBIKOK NURNegativeNormalNEG ProMnorthport medical centera Orchard HospitalComment on above:Performed By: #### NUM #### [facility] ([id number]) [address] [place] [address] 08595ZQVZK/HGB NURMODERATEAbnormalNEGKindred Healthcare Comment on above:Performed By: #### NUM #### [facility] ([id number]) [address] [place] [address] 05483NESDGDX NURNegativeNormalNEGKindred HealthcareComment on above:Performed By: #### NUM #### [facility] ([id number]) [address] [place] [address] 39782OCBIIET NURNegativeNormalNEGKindred HealthcareComment on above:Performed By: #### NUM #### [facility] ([id number]) [address] [place] [address] 94556ALORFXQQB ESTERASE NURNegativeNormalNEGKindred HealthcareComment on above:Performed By: #### NUM #### [facility] ([id number]) [address] [place] [address] 87352VUXVXXK NURNegativeNormalNEGKindred HealthcareComment on above:Performed By: #### NUM #### [facility] ([id number]) [address] [place] [address] 15883ZI NUR6.6Zqtfpt5.0-8.5ProMedica Orchard HospitalComment on above:Performed By: #### NUM #### [facility] ([id number]) [address] [place] [address] 18927RZWJXTL NURNegativeNormalNEGKindred HealthcareComment on above:Performed By: #### NUM #### [facility] ([id number]) [address] [place] [address] 01587PHUBOCIU GRAVITY NUR1.519Sguljy0.003-1.035ProConnally Memorial Medical CenterComment on above:Performed By: #### NUM #### [facility] ([id number]) [address] [place] [address] 14434CWUOJGUNGCMR NUR0.2 eu/dLNormal<1.1PKettering Health Troy Comment on above:Performed By: #### NUM #### [facility] ([id number]) [address] [place] [address], [place], [place] [address]WL PREG LESS THAN 14 WKS WITH TRANSVAGINALon 02-10-3097ZU PREG LESS THAN 14 WKS WITH TRANSVAGINALUS [...] Flakito Arauz MD on 05/30/2024 10:23 PMNormalProMedica Orchard Hospital TBH PREG QUANT HCGon 47-93-9961BVJ AUTTXHPSTZEM180fLF/mLNOMS HealthcareComment on above:5-50 0.2-1 WEEK 50-500 1-2 WEEKS 100-5,000 2-3 WEEKS 500-10,000 3-4 WEEKS 1,000-50,000 4-5 WEEKS 10,000-100,000 5-6 WEEKS 15,000-200,000 6-8 WEEKS 10,000-100,000 2-3 MONTHS CLINISYNewport [facility] CenterTBH PREG QUANT HCGon 84-00-6970YPE ELAFKAILHRYC707aBQ/mL NOMS HealthcareComment on above:5-50 0.2-1 WEEK 50-500 1-2 WEEKS 100-5,000 2-3 WEEKS 500-10,000 3-4 WEEKS 1,000-50,000 4-5 WEEKS 10,000-100,000 5-6 WEEKS 15,000-200,000 6-8 WEEKS 10,000-100,000 2-3 MONTHS CLINISYNCNOAL HealthcareCBC AND AUTO DIFFon 95-78-1807IPCQBPNE BASOPHIL0.1 X10E9/LNormal0.0-0.2PKettering Health TroyComment on above:Performed By: #### [facility], [facility] #### [facility] ([id number]) [address] [place] [address] 02392KHLAMXKQ NEUTROPHIL8.0 X10E9/LHigh1.5-6.6ProConnally Memorial Medical CenterComment on above:Performed By: #### [facility], [facility]-08 #### [facility] ([id number]) [address] [place] [address] 47424Waobqfupm/100 WBC (Bld)0.8 %[facility] Comment on above:Performed By: #### [facility], 1987-08 #### [facility] ([id number]) [address] [place] [address] 64133Cmpcxhtzmbd (Bld) [#/Vol]0.1 10*3/uLNormal0.0-0.4Kindred HealthcareComment on above:Performed By: #### [facility], 1987-08 #### [facility] ([id number]) [address] [place] [address] 21655Thfusxewwuw/100 WBC (Bld)0.5 %[facility] Comment on above:Performed By: #### [facility], 1987-08 #### [facility] ([id number]) [address] [place] [address] 55670Tsncmroptki distribution width (RBC) [Ratio]14.9 %Normal 11.5-15.0Kindred HealthcareComment on above:Performed By: #### [facility], [facility]-08 #### [facility] ([id number]) [address] [place] [address] 95052Iwoqcflbaq (Bld) [Volume fraction]38.2 %Dmndbo34-82UgiMvliroConnally Memorial Medical CenterComment on above:Performed By: #### [facility], 1987-08 #### [facility] ([id number]) [address] [place] [address] 44092Glstoavvwv (Bld) [Mass/Vol]12.8 g/xBTyfdlw54.7-15.5PKettering Health TroyComment on above:Performed By: #### [facility], 1987-08 #### [facility] ([id number]) [address] [place] [address] 51968Ojxmsqainqg (Bld) [#/Vol]3.2 10*3/uLNormal1.0-3.5PKettering Health TroyComment on above:Performed By: #### [facility], 1987-08 #### [facility] ([id number]) [address] [place] [address] 59521Qndwevjahpf/100 WBC (Bld)25.8 %NormalKindred Healthcare Comment on above:Performed By: #### [facility], 1987-08 #### [facility] ([id number]) [address] [place] [address] 17032ZKC (RBC) [Entitic mass]27.0 zqAlgigo28-76QdkOxpcyhConnally Memorial Medical CenterComment on above:Performed By: #### [facility], 1987-08 #### [facility] ([id number]) [address] [place] [address] 93474WFHS (RBC) [Mass/Vol]33.6 g/bHOkbzdg30-69DicXoswtjKindred HealthcareComment on above:Performed By: #### [facility], 1987-08 #### [facility] ([id number]) [address] [place] [address] 71254ORF (RBC) [Entitic vol]80 ePIwthgm65-943NzwYmheizKindred HealthcareComment on above:Performed By: #### [facility], 1987-08 #### [facility] ([id number]) [address] [place] [address] 67660Uqkzouean (Bld) [#/Vol]0.9 10*3/uLNormal0-0.9Kindred HealthcareComment on above:Performed By: #### [facility], 1987-08 #### [facility] ([id number]) [address] [place] [address] 01165Ojljqbrlp/100 WBC (Bld)7.3 %[facility] Comment on above:Performed By: #### [facility], 1987-08 #### [facility] ([id number]) [address] [place] [address] 79247Ncmwkrsoeay/100 WBC (Bld)65.6 %[facility] Comment on above:Performed By: #### [facility], 1987-08 #### [facility] ([id number]) [address] [place] [address] 43080Ckaxyuul mean volume (Bld) [Entitic vol]8.5 fLNormal7-12 ProMSt. Rose HospitalComment on above:Performed By: #### [facility], 1987-08 #### [facility] ([id number]) [address] [place], [place] [address]Bstvmztjk (Bld) [#/Vol]412 10*3/qJQlebrb511-921HexYrivkm [facility]remont HospitalComment on above:Performed By: #### [facility] [address], 1986-08 #### [facility] ([id number]) [address] [place] [id number] COUNT4.75 X10E12/LNormal3.80-5.20[facility] Comment on above:Performed By: #### [facility], 1987-08 #### [facility] ([id number]) [address] [place] [address]APQ (Bld) [#/Vol]12.3 10*3/uLHigh4.0-11.0Kindred HealthcareComment on above:Performed By: #### [facility], 1987-08 #### [facility] ([id number]) [address] [place] [id number]/GC BY PCRon [id number]/GC BY PCRSPECIMEN SOURCE CERVIX Corrected on 05/01 [...] because results are dependent on adequate specimen collection.NormalKindred Healthcare Comment on above:Performed By: #### CGS #### [facility] ([id number]) [address], [address] [place], [place] [address]HMQAREVTEGMXZ METABOLIC PANELon [id number] [Mass/Vol]4.1 g/dLNormal3.2-5.3ProMedMattel Children's Hospital UCLAComment on above:Performed By: #### HILLARY CHI, 1986-08 #### [facility] ([id number]) [address] [place] [address], [place] [address]PYH [Catalytic activity/Vol]92 U/AKohbjo50-533CqwYufzslConnally Memorial Medical CenterComment on above:Performed By: #### HILLARY CHI, 1986-08 #### [facility] ([id number]) [address] [place] [address], [place] [address]EIA [Catalytic activity/Vol]19 U/LNormal0-31PKettering Health TroyComment on above:Performed By: #### HILLARY CHI, 1986-08 #### [facility] ([id number]) [address] [place] [address], [place] [address]Pglqb gap [Moles/Vol]7 mmol/LNormal5-15ProConnally Memorial Medical CenterComment on above:Performed By: #### HILLARY CHI, 1986-08 #### [facility] ([id number]) [address] [place] [address], [place] [address]LJQ [Catalytic activity/Vol]17 U/LNormal0-41ProConnally Memorial Medical CenterComment on above:Performed By: #### HILLARY CHI, 1986-08 #### [facility] ([id number]) [address] [place] [address], [place] [address]Arvjwkbjt [Mass/Vol]0.3 mg/dLNormal0.3-1.2PKettering Health TroyComment on above:Performed By: #### HILLARY CHI, 1986-08 #### [facility] ([id number]) [address] [place] [address], [place] [address]Zlvejgr [Mass/Vol]8.7 mg/dLNormal8.5-10.5PYampa Valley Medical Center HospitalComment on above:Performed By: #### HILLARY CHI, 1986-08 #### [facility] ([id number]) [address] [place] [address] 32380Uazihuhx [Moles/Vol]109 mmol/KUbhssf67-639DakHbxorcConnally Memorial Medical CenterComment on above:Performed By: #### [facility], 1987-08 #### [facility] ([id number]) [address] [place] [address] 23669OL8 [Moles/Vol]23 mmol/GZawbrf99-43GbgYztjqwKettering Health Troy Comment on above:Performed By: #### [facility], 1987-08 #### [facility] ([id number]) [address] [place] [address] 29024Uigeiimgxk [Mass/Vol]0.61 mg/dLNormal0.40-1.00Kindred HealthcareComment on above:Result Comment: METHOD TRACEABLE TO IDMS STANDARD Performed By: #### HILLARY CHI, 1986-08 #### [facility] ([id number]) [address] [place] [address] 00825nRPT (CKD-EPI) NON-RACE DEPENDENT>90Normal>59ProConnally Memorial Medical CenterComment on above:Result Comment: Reported eGFR is based on the CKD-EPI 2020 equation that does not use a race coefficient.Performed By: #### HILLARY CHI, 1986-08 #### [facility] ([id number]) [address] [place] [address] 20536Chxyutd [Mass/Vol]92 mg/yJLlvunr84-21UqsAqqhebKindred Healthcare Comment on above:Performed By: #### [facility], 1987-08 #### [facility] ([id number]) [address] [place] [address] 58221Vprivabki [Moles/Vol]3.6 mmol/LNormal3.5-5.0Kindred HealthcareComment on above:Performed By: #### HILLARY CHI, 1986-08 #### [facility] ([id number]) [address] [place] [address] 56978Meucgbz [Mass/Vol]7.1 g/dLNormal6.0-8.0Kindred HealthcareComment on above:Performed By: #### [facility], 1987-08 #### [facility] ([id number]) [address] [place] [address] 24727Remwyw [Moles/Vol]139 mmol/XZixrzz782-504YodYblbei Fremont HospitalComment on above:Performed By: #### [facility], 1987-08 #### [facility] ([id number]) [address] [place] [address] 34249Ikdw nitrogen [Mass/Vol]13 mg/dLNormal5-23ProConnally Memorial Medical CenterComment on above:Performed By: #### [facility], 1987-08 #### [facility] ([id number]) [address] [place] [address] 87173QMH [Mass/Vol]on 05-01-2024 REACTIVE PROTEIN1.4 mg/dLHigh 0.000-0.744PKettering Health TroyComment on above:Performed By: #### [facility], 1987-08 #### [facility] ([id number]) [address] [place] [address] 44122REP ( test) Ql (U)on 92-03-1040Hzsx HCG ( test) Ql (U)NegativeNormalNEGKindred HealthcareComment on above: Performed By: #### 2106-3 #### [facility] ([id number]) [address] [place] [address] 93255RWCHE CULTUREon 82-02-7004Yebqeowx identified Cx Nom (U)CULTURE RESULTS <10,000 ORGANISMS/ML NORMAL URO GENITAL FLORANoTriHealth McCullough-[facility] Comment on above:Performed By: #### 630-4 #### [facility] ([id number]) [address] [place] [address], [address] [place], [place] [address]UJJ MACROSCOPIC NURon 76-45-4991ETQGGTIUT NURNegativeNormalNEG [facility] Orchard HospitalComment on above:Performed By: #### NUM #### [facility] ([id number]) [address] [place] [address], [place], [place] [address]EVAKW/HGB NURNegativeNormalNEGProCity Hospitalca Orchard HospitalComment on above:Performed By: #### NUM #### [facility] ([id number]) [address] [place] [address], [place], [place] [address]TNHYZOY NURNegativeNormalNEGProConnally Memorial Medical CenterComment on above:Performed By: #### NUM #### [facility] ([id number]) [address] [place] [address] 21247KCVSBWC NURNegativeNormalNEGProConnally Memorial Medical CenterComment on above:Performed By: #### NUM #### [facility] ([id number]) [address] [place] [address] [place] [address]IKKRJHQWH ESTERASE NURNegativeNormalNEGKindred HealthcareComment on above:Performed By: #### NUM #### [facility] ([id number]) [address] [place] [address] 60[address]BQFQUKS NURNegativeNormalNEGProConnally Memorial Medical CenterComment on above:Performed By: #### NUM #### [facility] ([id number]) [address] [place] [address] [place] [address]GX NUR6.9Dsijth4.0-8.5ProMedica Orchard HospitalComment on above:Performed By: #### NUM #### [facility] ([id number]) [address] [place] [address] [place] [address]AGZZIJI NURNegativeNormalNEGProCity Hospitalca Orchard HospitalComment on above:Performed By: #### NUM #### [facility] ([id number]) [address] [facility]NOTE 2], [facility], [place] [address]NXRPPIPT GRAVITY NEHA>=1.438Zkjlmu0.003-1.035ProMedica Orchard HospitalComment on above:Performed By: #### NUM #### [facility] ([id number]) [address] [facility]], [facility], [place] [address]LBUOZVNXNHDE NUR0.2 eu/dLNormal<1.1[facility] Comment on above:Performed By: #### NUM #### [facility] ([id number]) [address] [facility] [place]NOTE 2], [facility], [place] [address]SW PELVIC WITH TRANSVAGINAL AND DUPLEXon 65-40-5118PO PELVIC WITH TRANSVAGINAL AND DUPLEXUS PELVIC WITH [...] by Gigi Alves MD on 05/01/2024 1:36 PMNAdena Regional Medical CenterVAGINITIS PANEL PCRon 88-22-9849YDVLXWBNX PANEL PCRBACT. VAGINOSIS DNA Detected (qualifier value) [...] accordance with clinical presentation to determine patient diagnosis.[facility] Atrium Medical CenterComment on above:Performed By: #### VPPCR #### [facility] ([id number]) [address] [place] [address], [address] [place], [place] [address]Qpukqe Summaryon 41-67-0798Vkzvek SummaryHTMLBase 64 WfmkqsuuYYh6gEa+PGhlYWQ+WG3HQLTfA34hfKMwmO4aG5HYQCtMTibqSYUSSCwUZhWfjkRwAZ8azQOq ZXJu [file] ZXI (more content not included)...[facility]woodsXR CHEST 1 VWon 82-22-0432EY CHEST 1 VWXR CHEST 1 VW Portable chest: HISTORY: Cough and fever. The chest was obtained. Right upper lobe density is most likely represent granulomas. Lungs otherwise clear. There is no cardiac contour abnormality. No effusion or pneumothorax. IMPRESSION: No acute findings. Finalized by Yvan Oseguera MD on 04/22/2024 1:52 [facility] Springsca Orchard HospitalED Clinical Summaryon 76-91-7916KV [facility] SummaryReg[facility] Emergency Department [address] [place], [place] [address] ED Clinical Summary PERSON INFORMATION Name: LIA DESAI Age: 23 Years Sex: FEMALE : 2000 MRN: Acct#: Visit Reason: Body aches; Cough; FEVER, COUGH Arrival: 04/19/2024 08:50:39 Discharge: 04/19/2024 09:24:00 LOS: 000 00:34 Check In: 04/19/2024 08:50:39 Checkout:04/19/2024 09:24:00 Address: [address] [place] [address] PCP: Provider, Unlisted PROVIDER INFORMATION Provider Role Assigned Unassigned Abner Harvey MD ED Provider 04/19/2024 09:05:18 Jayne Zuñiga DISPLAY DIRECTOR Nurse 04/19/2024 09:05:51 VITALS INFORMATION Vital Sign [...] reactions were documented.. Medications: (Selected) Prescriptions Prescribed [place] Saline Mist 0.65% nasal spray: 2 spray(s), !-Nasal, QID, for 7 day(s), 1 EA, 0 Refill(s) metroNIDAZOLE 0.75% vaginal gel with applicator: 1 jamel, Vaginal, Once, 70 gm, 0 Refill(s). Past Medical/ Family/ Social History Medical history: Resolved Disease caused by 2019 novel coronavirus ([id number]): Onset on 11/23/2020 at 20 years. Resolved. Comments: 11/23/2020 CDT 16:07 CDT - SYSTEM Problem added by Rule (IC_COVID19_AUTO_PROBLEM) following 2019 Novel Coronavirus (CoVID-19), MILY L from Nasopharyngeal Swab collected on 22-NOV-2020 16:44:00 EDT tested positive for COVID-19. no history ([id number]): Resolved. Contact dermatitis (79993481): Resolved. Pharyngitis (7973852901): Resolved. Cough (68076356): Resolved., Reviewed as documented in chart. Surgical history: Tonsillectomy and adenoidectomy (527072392)., Reviewed as documented in chart. Family history: [...] Use: Never , R (more content not included)...[facility] Note - Physicianon 19-80-1814GD Note - PhysicianPatient: LIA DESAI Age: 23 [...] reactions were documented.. Medications: (Selected) Prescriptions Prescribed [place] Saline Mist 0.65% nasal spray: 2 spray(s), !-Nasal, QID, for 7 day(s), 1 EA, 0 Refill(s) metroNIDAZOLE 0.75% vaginal gel with applicator: 1 jamel, Vaginal, Once, 70 gm, 0 Refill(s). Past Medical/ Family/ Social History Medical history: Resolved Disease caused by 2019 novel coronavirus ([id number]): Onset on 11/23/2020 at 20 years. Resolved. Comments: 11/23/2020 CDT 16:07 CDT - SYSTEM Problem added by Rule (IC_COVID19_AUTO_PROBLEM) following 2019 Novel Coronavirus (CoVID-19), MILY L from Nasopharyngeal Swab collected on 22-NOV-2020 16:44:00 EDT tested positive for COVID-19. no history (720025703): Resolved. Contact dermatitis (80483154): Resolved. Pharyngitis (9846117973): Resolved. Cough (57660210): Resolved., Reviewed as documented in chart. Surgical history: Tonsillectomy and adenoidectomy (128882292)., Reviewed as documented in chart. Family history: [...] Tympanic membranes clear, or (more content not included)...[facility]woodsED Patient Summaryon 19-34-2965OI Patient SummaryChildren[facility] - Emergency Department [address] [place] [address] PATIENT DISCHARGE INSTRUCTIONS Patient Information Name: LIA DESAI Age: 23 Years Date of : 2000 Reason For Visit: Body aches; Cough; FEVER, COUGH Arrival Time: 04/19/2024 08:50:39 Primary Care Physician: Provider, Unlisted Attending Physician: Abner Harvey MD Comment: Visit Diagnosis: Diagnoses This Visit Body aches ([id number]) Cough ([id number]) Viral URI with cough (J06.9) The Pharmacy at [facility] is open Saturday through Saturday [...] alcohol and/or drug addiction problems; contact the [facility] 29/10 Crisis Hotline -Text 5OHPM [place] [phone]. If you received any narcotics, sedation, or [...] doctor. Alternatively, you may follow-up with the [facility] Urgent Care if you are [...] and treatment you received today in the [facility] Emergency Department were for an urgent problem and are not intended as complete care. It is important for you to follow up with a doctor, nurse practitioner, or physician?s assistant plant control operator for ongoing care. If your symptoms become [...] so we can reach you if necessary. [facility] Emergency Department has provided you with a complete list of medications post discharge. Please inform your chisel worker/provider of your visit and for further instruction [...] Vaginal once. Refills: 0. sodium chloride nasal ([place] Saline Mist 0.65% nasal spray) 2 spray(s) Nasal 4 times a day for 7 Days. Refills: 0. Visit Information Allergies: Substance Reaction Symptoms Type Comments Zithromax Drug Adhesive Bandage Other Vital Signs: Vitals and Measurements this Visit (last charted value for your 04/19/2024 visit) Vital Signs This Visit Temperature Temporal Artery: 36.4 DegC Peripheral Pulse Rate: 77 bpm Respiratory Ra (more content not included)...[facility]woodsProgress Note - Nurseon 14-22-8721Urqosgji Note - NursePatient walks to room 6. Patient is alert and oriented X 4. Patient is here for a cough, body aches, fever and sore throat since yesterday. Pt. states she tested herself for covid yesterday and had afaint positive. [Electronically Signed on: 04/19/2024 09:11 EST] July RN [Verified on: 04/19/2024 09:11 EST] July RNNoGerman HospitalCoding Summaryon 61-77-3124Dciinf SummaryMLBase 64 XndwminfDVc7fIm+PGhlYWQ+OH6RSSZhL35yuBRryB9wT8ZCIHbIYytoIHARLJzZRlXgcoItEQ5vdZAt ZXJu [file] ZXI (more content not included)...[facility].Auto Diff 136-17-0427Yvyb Boyd %8 %[address] Ross StreetComment on above:Performed By: #### [id number], [id number], 6079495, 0689197 #### [facility] (DEFAULT) [address] [place] [address] 10934Qhff Abs#0.1 u04Yuernw1.0-0.2Magrmercy health fairfield hospital HospitalComment on above:Performed By: #### [id number], [id number], 7852189, 7654818 #### [facility] (DEFAULT) [address] [place] [address] 41630Qpqdvolvf/100 WBC (Bld)1.0 %Normal0.2-2.0[facility] Hospital Comment on above:Performed By: #### 09976240, 3842234248, 0026119, 0177297 #### [facility] (DEFAULT) [address] [place] [address] 99579Qbc Abs#0.1 w76Xwbxfo6.0-0.4Magrmercy health fairfield hospital HospitalComment on above:Performed By: #### 91103590, 2996163646, 7546549, 2835573 #### [facility] (DEFAULT) [address] [place] [address] 30059Prlrjgfldgq/100 WBC (Bld)0.9 %Normal0.9-4.0[facility] HospitalComment on above:Performed By: #### [id number], 8929745897, 4683777, 5763755 #### [facility] (DEFAULT) [address] [place] [address] 96057Nqlhj Abs#2.5 s04Wkkqbs9.3-2.9Magrmercy health fairfield hospital HospitalComment on above:Performed By: #### 70601397, 9203675640, 4643730, 2081197 #### [facility] (DEFAULT) [address] [place] [address] 99649Ztxcxoqvtnr/100 WBC (Bld)32 %Wcruht04-26Lhnfqqqb Hospital Comment on above:Performed By: #### 12787176, 7524365319, 2002443, 0105750 #### [facility] (DEFAULT) [address] [place] [address] 28176Jztj Abs#0.6 a74Rbcsit1.0-0.8[facility] HospitalComment on above:Performed By: #### 39668356, 0814821864, 1208299, 1776590 #### [facility] (DEFAULT) [address] [place] [address] 74879Cdgq Abs#4.5 c48Zlvzgc3.5-9.2Mmercer county community hospital HospitalComment on above:Performed By: #### 53553038, 4110427194, 0898599, 1043146 #### [facility] (DEFAULT) [address] [place] [address] 65057Grbjrkspqsg/100 WBC (Bld)58 %Drxbct97-15Xhqdhpbk Hospital Comment on above:Performed By: #### 80854419, 8817095888, 0148765, 8001571 #### [facility] (DEFAULT) [address] [place] [address] 31067UTJ w/ Auto Diffon 59-81-6943Ikrjrswdwio distribution width (RBC) [Ratio]15.2 %High11.5-15.0[facility] Hospital Of ColumbusComment on above: Performed By: #### 16547990, 3269019486, 6061251, 8723305 #### [facility] (DEFAULT) [address] [place] [address] 38613Stseifddhd (Bld) [Volume fraction]39.9 %Jdzrpc57.7-40.4 [facility] ColumbusComment on above:Performed By: #### 37294202, 9179282888, 9804972, 2824231 #### [facility] (DEFAULT) [address] [place] [address] 52889Bpobitshad (Bld) [Mass/Vol]13.3 g/lDTxbulr36.3-15.9 [facility] ColumbusComment on above:Performed By: #### 30874791, 2454827998, 5463622, 1196699 #### [facility] (DEFAULT) [address] [place] [address] 44089Szj Diff?AutoInvalid Interpretation [facility] Comment on above:Performed By: #### 18097675, 1444873421, 6105143, 6797735 #### [facility] (DEFAULT) [address] [place] [address] 51620EGE (RBC) [Entitic mass]27 ozHlcbkr30-34Opzmxhvg Hospital Comment on above:Performed By: #### 50031545, 4564166307, 6136117, 9698330 #### [facility] (DEFAULT) [address] [place] [address] 46503LOXB (RBC) [Mass/Vol]33 g/mBCuscna52-34Qsaypxbe Hospital Comment on above:Performed By: #### 20047999, 0216074697, 6924094, 8300199 #### [facility] (DEFAULT) [address] [place] [address] 08462DUX (RBC) [Entitic vol]81 xCIwmgcj37-168Tgynkexu Hospital Comment on above:Performed By: #### 35551906, 8487446004, 7543616, 6312454 #### [facility] (DEFAULT) [address] [place] [address] 87901Emjtirup620 z25Zmsruo420-109Wagnymbn HospitalComment on above:Performed By: #### 66919768, 1998609555, 1068160, 8967790 #### [facility] (DEFAULT) [address] [place] [address] 56871Cuqdrult mean volume (Bld) [Entitic vol]8.4 fLNormal 6.3-10.2Mmercer county community hospital HospitalComment on above:Performed By: #### 57359606, 9243173079, 8276328, 2751100 #### [facility] (DEFAULT) [address] [place] [address] 21641OEN3.90 h70Volyxu7.70-5.30[facility] HospitalComment on above:Performed By: #### 05456326, 0905069077, 5592337, 6648027 #### [facility] (DEFAULT) [address] [place] [address] 81337LJJ6.7 p55Kcfehf6.5-10.5[facility] HospitalComment on above: Performed By: #### 68923603, 5290528962, 2895675, 3824082 #### [facility] (DEFAULT) [address] [place] [address] 64765NPF Standardon 57-08-3578lHOJ Non AA>60Invalid Interpretation [facility] GlenbeighComment on above:Performed By: #### [id number], 3908216352, 7178369, 4300270 #### [facility] (DEFAULT) [address] [place] [address] 28881vTSE AA>60Invalid Interpretation [facility] Comment on above:Performed By: #### 29028910, 2642374763, 4710068, 2045704 #### [facility] (DEFAULT) [address] [place] [address] 46349Akwmdma [Mass/Vol]3.9 g/dLNormal3.5-5.0[facility] Comment on above:Performed By: #### 23781067, 4323472085, 7272432, 7377004 #### [facility] (DEFAULT) [address] [place] [address] 93694Ghuyobd/Globulin [Mass ratio]1.0 {ratio}Low1.4-2.6MChillicothe VA Medical CenterComment on above:Performed By: #### 77209998, 2384343292, 7967473, 4789405 #### [facility] (DEFAULT) [address] [place] [address] 81117Fhe Zvvi325 IU/FLvnz95-63Gibcyezt HospitalComment on above:Performed By: #### 85033118, 0675392895, 8288850, 3589328 #### [facility] (DEFAULT) [address] [place] [address] 33859DXK [Catalytic activity/Vol]24.0 U/FMjcqmx13.0-54.0 [facility] Of ColumbusComment on above:Performed By: #### 10705380, 3782966781, 5061874, 8334744 #### [facility] (DEFAULT) [address] [place] [address] 36071JES [Catalytic activity/Vol]22 U/MZkgqcc64-06Yzxcjpvk HospitalComment on above:Performed By: #### 03809962, 3260009698, 4331377, 8335101 #### [facility] (DEFAULT) [address] [place] [address] 53709Xgyn Total0.6 mg/dLNormal0.3-1.2Mmercer county community hospital HospitalComment on above:Performed By: #### 61484425, 0838386312, 1948525, 3491544 #### [facility] (DEFAULT) [address] [place] [address] 88072Xlzojmbuqf [Mass/Vol]0.70 mg/dLNormal0.60-1.30[facility] HospitalComment on above:Performed By: #### 53586077, 3886701496, 1035109, 6457370 #### [facility] (DEFAULT) [address] [place] [address] 86432Taecfkdv (S) [Mass/Vol]3.6 g/dLNormal1.5-4.3Mmercer county community hospital HospitalComment on above:Performed By: #### 45133700, 0900604445, 4460913, 9576913 #### [facility] (DEFAULT) [address] [place] [address] 30809Mnarkvgcbr673 mOsm/LInvalid Interpretation CodeUniversity Hospitals Portage Medical Center HospitalComment on above:Performed By: #### 01812476, 0248107084, 5764949, 5717594 #### [facility] (DEFAULT) [address] [place] [address] 29115Ywrruwt [Mass/Vol]7.5 g/dLNormal6.5-8.1Mmercer county community hospital Hospital Comment on above:Performed By: #### 61082756, 9445590148, 0513741, 9822849 #### [facility] (DEFAULT) [address] [place] [address] 57324Owih nitrogen [Mass/Vol]14 mg/dLNormal8-26[facility] HospitalComment on above:Performed By: #### 51677025, 5902398250, 6572981, 5914143 #### [facility] (DEFAULT) [address] [place] [address] 21089Ikbk nitrogen/Creatinine [Mass ratio]20.0 mg/mgHigh 4.6-16.2Mmercer county community hospital HospitalComment on above:Performed By: #### 66386085, 2551517647, 0650191, 4172385 #### [facility] (DEFAULT) [address] [place] [address] 91683Aaplf gap [Moles/Vol]14.2 mmol/LNormal5.0-19.0[facility] HospitalComment on above:Performed By: #### 70302427, 2679403781, 6553505, 5361369 #### [facility] (DEFAULT) [address] [place] [address] 44434Gzuklgu [Mass/Vol]8.7 mg/dLLow8.9-10.3Mmercer [facility] community hospital Hospital Comment on above:Performed By: #### 93845009, 3109475490, 1833151, 0649272 #### [facility] (DEFAULT) [address] [place] [address] 70697Eyphtttw [Moles/Vol]104 mmol/IZcbcbl376-753Sacvckxw HospitalComment on above:Performed By: #### 64285235, 6501005043, 3924015, 3861965 #### [facility] (DEFAULT) [address] [place] [address] 19814UX7 [Moles/Vol]22 mmol/JJhmktq06-76Fwsnzpvn Hospital Comment on above:Performed By: #### 56278374, 2837619523, 6254322, 9019782 #### [facility] (DEFAULT) [address] [place] [address] 11839Eqbviln [Mass/Vol]96.0 mg/rXSfckzl53.0-118.0[facility] HospitalComment on above:Performed By: #### 82891757, 8148948307, 8318868, 2724835 #### [facility] (DEFAULT) [address] [place] [address] 87150Klekrhupl [Moles/Vol]4.2 mmol/LNormal3.6-5.1Mmer[facility] county community hospital HospitalComment on above:Performed By: #### 04738463, 7807092748, 9163454, 9395065 #### [facility] (DEFAULT) [address] [place], [place] [address]Nenlpm [Moles/Vol]136.0 mmol/XDhfwqq691.0-144.0[facility] Hospital Of ColumbusComment on above:Performed By: #### 46708500, 0701495670, 4625253, 5314489 #### [facility] (DEFAULT) [address] [place] [address] [id number] Abdomen/Pelvis w/o Contraston [id number] Abdomen/Pelvis w/o ContrastEXAMINATION: CT Abdomen/Pelvis w/o Contrast [...] Hope MD 03/20/24 9:36 am Technologist: AMPARO PATELWright-Patterson Medical CenterED Clinical Summaryon [id number] Clinical [facility] - Emergency Department [address] [place] [id number] ED Clinical Summary PERSON INFORMATION Name: LIA DESAI Age: 23 Years Sex: FEMALE : 2000 MRN: Acct#: Visit Reason: Back pain; LOW BACK PAIN Arrival: 03/20/2024 06:28:58 Discharge: 03/20/2024 09:56:00 LOS: 000 03:28 Check In: 03/20/2024 06:28:58 Checkout:03/20/2024 09:56:00 Address: [address] [place] [address] PCP: Provider, Unlisted PROVIDER INFORMATION Provider Role Assigned Unassigned Oneil Littlejohn DO ED Provider 03/20/2024 06:30:59 Sudha Virgen DISPLAY DIRECTOR Nurse 03/20/2024 07:13:25 Joelle Nava DISPLAY DIRECTOR Nurse 03/20/2024 07:40:00 Abner Harvey MD ED [...] Impression and Plan Diagnosis Back pain (PNED [id number], Reason For Visit, Emergency medicine, Medical) Left flank pain (UIE52-JK R10.9, Discharge, Medical) Plan Disposition: Patient care transitioned to: Time: 03/20/2024 08:00:00, Abner Harvey MD, Change of shift.. DISCHARGE INFORMATION: Discharge Disposition: Home Discharge Location: Home PATIENT EDUCATION INFORMATION Instructions: Bacterial Vaginosis, Aaxj-qc-Qvjs; Acute Back Pain, Adult Follow-Up: With: Address: When: Follow up with primary care provider Within 3 to 5 days Comments: Reviewed discharge care instruction. Continue with therapy as outlined by Dr. Harvey. Take your medication as (more content not included)...[facility]woodsED Note - Physicianon [id number] Note - PhysicianPatient: LIA DESAI Age: 23 years Sex: FEMALE : 2000 Associated Diagnoses: Acute abdominal pain in left flank; Acute left-sided back pain; Left flank pain; Bacterial vaginosis Author: Abner Harvye MD Basic Information Time seen: Date & [...] reactions were documented.. Medications: (Selected) Prescriptions Prescribed [place] Saline Mist 0.65% nasal spray: 2 spray(s), !-Nasal, QID, for 7 day(s), 1 EA, 0 Refill(s). Past Medical/ Family/ Social History Medical history: Resolved Disease caused by 2019 novel coronavirus ([id number]): Onset on 11/23/2020 at 20 years. Resolved. Comments: 11/23/2020 CDT 16:07 CDT - SYSTEM Problem added by Rule (IC_COVID19_AUTO_PROBLEM) following 2019 Novel Coronavirus (CoVID-19), MILY L from Nasopharyngeal Swab collected on 22-NOV-2020 16:44:00 EDT tested positive for COVID-19. no history (125532314): Resolved. Contact dermatitis (60360613): Resolved. Pharyngitis (2450345052): Resolved. Cough (89508456): Resolved.. Surgical history: Tonsillectomy and adenoidectomy (631492580).. Family history: No family history items have [...] Pulse Rate 71 bpm (more content not included)...[facility] Note - PhysicianPatient: LIA DESAI Age: [...] Impression and Plan Diagnosis Back pain (PNED [id number], Reason For Visit, Emergency medicine, Medical) Left flank pain (TIF99-XI R10.9, Discharge, Medical) Plan Disposition: Patient care transitioned to: Time: 03/20/2024 08:00:00, Abner Harvey MD, Change of shift.. [Electronically Signed on: 03/20/2024 07:33 EST] Oneil Littlejohn DO [Verified on: 03/20/2024 07:33 EST] Oneil Littlejohn [facility]ursing[facility] [id number] Note-NursingPT. C/O back pain that started throughout the night and into this morning. PT. states that she wokeup around 0545. Pt. does have urinary frequency. Pt. rates pain 7/10. Pt. is A&OX . PT. has a steady gait. [facility]ED [facility] Summaryon [id number] Patient [facility] - Emergency Department [address] [place] [address] PATIENT DISCHARGE INSTRUCTIONS Patient Information Name: LIA DESAI Age: 23 Years Date of : 2000 Reason For Visit: Back pain; LOW BACK PAIN Arrival Time: 03/20/2024 06:28:58 Primary Care Physician: Provider, Unlisted Attending Physician: Oneil Littlejohn DO Comment: Visit Diagnosis: Diagnoses This Visit Acute abdominal pain in left flank (R10.9) Acute left-sided back pain (M54.9) Back pain ([id number]) Bacterial vaginosis (N76.0) Left flank pain (R10.9) Other specified bacterial agents as the cause of diseases classified elsewhere (B96.89) The Pharmacy at [facility] is open Saturday through Saturday [...] alcohol and/or drug addiction problems; contact the [facility] 29/10 Crisis Hotline -Text 8TARJ m[place] [id number]. If you received any narcotics, sedation, or [...] and treatment you received today in the [facility] Emergency Department were for an urgent problem and are not intended as complete care. It is important for you to follow up with a doctor, nurse practitioner, or physician?s assistant plant control operator for ongoing care. If your symptoms become [...] so we can reach you if necessary. [facility] Emergency Department has provided you with a complete list of medications post discharge. Please inform your chisel worker/provider of your visit and for further instruction on these medications. Any specific questions regarding your chronic medications and dosages should be discussed with your primary care physician(s) and/or pharmacist. New Medications [facility], [address], [place] [id number], [phone] metroNIDAZOLE topical (metroNIDAZOLE 0.75% vaginal gel with applicator) 1 jamel Vaginal once. Refills: 0. Additional medications on your home medication list not specifically addressed. Please contact the ordering physician if you have questions about these medications. sodium chloride nasal ([place] Saline Mist 0.65% nasal spray) 2 spray(s) [...] Education Bacterial Vaginosis (Inser (more content not included)...NormalChildren'S Hospital Of ColumbusLipaseon 03-20-2024 Lipase Level27.0 IU/UFzfhql55.0-51.0Children[facility] Hospital Of ColumbusComment on above:Performed By: #### [id number], [id number], [id number], [id number] #### [facility] (DEFAULT) [address] [place] [address] 93744Vglwfytwj Test Urine 03-20-2024U PregNegativeNormal [facility] HospitalComment on above:Performed By: #### [id number], [id number], [id number], [id number] ####[facility] (DEFAULT)[address] [place] [address] 35953J Preg Internal ControlPassNoSt. John of God Hospital HospitalComment on above:Performed By: #### [id number], [id number], [id number], [id number] ####[facility] (DEFAULT)[address] [place] [address] 21141Kzaelk Panel 64-46-8047Ktcxuo Internal ControlPassNoSt. John of God Hospital HospitalComment on above:Performed By: #### [id number], [id number], [id number], [id number] ####[facility] (DEFAULT)[address] [place] [address] 15454A Amph Scr NegativeNormKettering Health Dayton HospitalComment on above:Performed By: #### [id number], [id number], [id number], [id number] ####[facility] (DEFAULT)[address] [place] [address] 20419T Deirdre ScrNegativeUniversity Hospitals Cleveland Medical Center HospitalComment on above:Performed By: #### [id number], [id number], [id number], [id number] ####[facility] (DEFAULT)[address] [place] [address] 94945K Benzodia ScrNegativeUniversity Hospitals Cleveland Medical Center HospitalComment on above:Performed By: #### [id number], [id number], [id number], [id number] ####[facility] (DEFAULT)[address] [place] [address] 29174J Cannab ScrnPositiveUniversity Hospitals Cleveland Medical Center HospitalComment on above:Performed By: #### [id number], [id number], [id number], [id number] ####[facility] (DEFAULT)[address] [place] [address] 68774Q Cocaine ScrNegativeNoSt. John of God Hospital HospitalComment on above:Performed By: #### [id number], [id number], [id number], [id number] ####[facility] (DEFAULT)[address] [place] [address] 54538I Methadone ScrNegativeUniversity Hospitals Cleveland Medical Center Hospital Comment on above:Performed By: #### [id number], [id number], [id number], [id number] ####[facility] (DEFAULT)[address] [place] [address] 82190M Methamp ScrnNegativeNoSt. John of God Hospital HospitalComment on above:Performed By: #### [id number], [id number], [id number], [id number] ####[facility] (DEFAULT)[address] [place] [address] 87161G Opiate ScrNegativeNoSt. John of God Hospital HospitalComment on above:Performed By: #### [id number], [id number], [id number], [id number] ####[facility] (DEFAULT)[address] [place] [address] 33820M Oxycod ScrNegativeNoSt. John of God Hospital HospitalComment on above:Performed By: #### [id number], [id number], [id number], [id number] ####[facility] (DEFAULT)[address] [place] [address] 59767U Phencyclidine ScrNegativeNoSt. John of God Hospital Hospital Comment on above:Performed By: #### [id number], [id number], [id number], [id number] ####[facility] (DEFAULT)[address] [place] [address] 18391N Tricyclic Antidepress ScrNegativeNormalUniversity Hospitals Portage [facility] Center HospitalComment on above:Result Comment: Results are to [...] PPX Propoxyphene (Norpropoxyphene): 300 ng/mL THC Cannabinoids (68-gfc-1-carboxy- -THC): 50 ng/mL TCA Tricyclic-Antidepressants (Desipramine): 300 ng/mLPerformed By: #### [id number], [id number], [id number], [id number] ####[facility] (DEFAULT)[address] [place], [place] [address] Tjwcs9sa 50-98-3447IP BacteriaRareNormal Children'S Hospital Of ColumbusComment on above:Order Comment: Urinalysis Microscopic order added on by [employer] [place] Expert Rules system.Performed By: #### [id number], [id number], [id number], [id number] ####[facility] (DEFAULT)[address] [place] [address] Comment.Clue Cells SeenThe Surgical Hospital at SouthwoodsComment on above:Order Comment: Urinalysis Microscopic order added on by [employer] [place] Expert Rules system.Performed By: #### [id number], [id number], [id number], [id number] ####[facility] (DEFAULT)[address] [place], [place] [address] Mucous TraceNormMagruder Memorial HospitalComment on above:Order Comment: Urinalysis Microscopic order added on by [employer] [place] Expert Rules system.Performed By: #### [id number], [id number], [id number], [id number] ####[facility] (DEFAULT)[address] [place], [place] [address] RBC>50NormalMagruder HospitalComment on above:Order Comment: Urinalysis Microscopic order added on by [employer] [place] Expert Rules system.Performed By: #### [id number], [id number], [id number], [id number] ####[facility] (DEFAULT)[address] [place], [place] [address] Squam EpiModerateThe Surgical Hospital at SouthwoodsComment on above:Order Comment: Urinalysis Microscopic order added on by [employer] [place] Expert Rules system.Performed By: #### [id number], [id number], [id number], [id number] ####[facility] (DEFAULT)[address] [place], [place] [address] WBC5-10The [facility] Hospital at SouthwoodsComment on above:Order Comment: Urinalysis Microscopic order added on by [employer] [place] Expert Rules system.Performed By: #### [id number], [id number], [id number], [id number] ####[facility] (DEFAULT)[address] [place], [place] [address] w Culture if Ind Standardon 28-90-3665Zlmrr (U)[facility] Comment on above:Performed By: #### [id number], [id number], 5246354380, [id number] ####[facility] (DEFAULT)[address] [place], [place] [address]Culture? IndicatedInvalid Interpretation ACMC Healthcare System GlenbeighComment on above:Result Comment: Result created by rule GL_MAGR_ADD_UA_CULT Result created by rule GL_MAGR_ADD_UA_CULT Result created by rule GL_MAGR_ADD_UA_CULT1 Result created by rule GL_MAGR_ADD_UA_CULTPerformed By: #### [id number], [id number], [id number], [id number] ####[facility] (DEFAULT)[address] [place], [place] [address]Glucose (U) [Mass/Vol]NegativeThe Surgical Hospital at SouthwoodsComment on above: Performed By: #### [id number], [id number], [id number], [id number] ####[facility] (DEFAULT)[address] [place] [address] 10386Qvqlumq Ql (U)Negative NormalUniversity Hospitals Portage Medical Center HospitalComment on above:Performed By: #### [id number], [id number], [id number], [id number] ####[facility] (DEFAULT)[address] [place] [address] 41323Hmqch?IndicatedInvalid Interpretation CodeChildren'S Hospital Of Columbus Comment on above:Result Comment: Result created by rule GL_MAGR_ADD_UA_MICRO Performed By: #### [id number], 738192729, [id number], [id number] ####[facility] (DEFAULT)[address] [place] [address] 17691GM BilirubinSMALL AbnormalUniversity Hospitals Port[facility] Center HospitalComment on above:Performed By: #### [id number], [id number], [id number], [id number] ####[facility] (DEFAULT)[address] [place] [address] 85867NW BloodLARGEAbnormalNEGATIVEUniversity Hospitals Portage Medical Center Hospital Comment on above:Performed By: #### [id number], [id number], [id number], [id number] ####[facility] (DEFAULT)[address] [place] [address] 15486RZ Clarity SL CLOUDYAbnormalCLEARMamckitrick hospital HospitalComment on above:Performed By: #### [id number], [id number], [id number], [id number] ####[facility] (DEFAULT)[address] [place] [address] 30770ZN Leuk EstNegativeNormalNEGATIVEUniversity Hospitals Portage Medical Center HospitalComment on above:Performed By: #### [id number], [id number], [id number], [id number] ####[facility] (DEFAULT)[address] [place] [address] 10808LU NitriteNegativeNormalNEGATIVEUniversity Hospitals Portage Medical Center HospitalComment on above:Performed By: #### [id number], 684620126, [id number], [id number] ####[facility] (DEFAULT)[address] [place] [address] 41362LI pH6.5Gasabb3-6Yumqbghw HospitalComment on above:Performed By: #### [id number], [id number], [id number], [id number] ####[facility] (DEFAULT)[address] [place] [address] 08975NV Nvafpdi25LgnfpohmORKDZJBVTooezpvf HospitalComment on above:Performed By: #### [id number], [id number], [id number], [id number] ####[facility] (DEFAULT)[address] [place] [address] 71916WZ Spec Grav>=1.030Normal 1.001-1.035[facility] HospitalComment on above:Performed By: #### [id number], [id number], [id number], [id number] ####[facility] (DEFAULT)[address] [place] [address] 46910LA Urobilinogen0.2 mg/dLNormal0.2-1.0[facility] HospitalComment on above:Performed By: #### [id number], 944900729, 5526484286, [id number] ####[facility] (DEFAULT)[address] [place] [address] 32519Nynrn SourceClean CatchNoSt. John of God Hospital HospitalComment on above:Performed By: #### [id number], [id number], [id number], [id number] ####[facility] (DEFAULT)[address] [place] [address] 67482Rujlnppugi UANormal [facility] HospitalComment on above:Performed By: #### [id number], [id number], [id number], [id number] ####[facility] (DEFAULT)[address] [place] [address] 90944Mvmnon Summaryon 09-79-4910Dpttia SummaryMLBase 64 TsydurmeYEf7eVa+PGhlYWQ+OS5UPCWvB12gzFThpY1mA8EQTHwAGfkdOKTKKKxISmMieqIaJR4ovBEj ZXJu [file] YXB (more content not included)...[facility] Throaton 01-30-2024 ThroatOrdered by Discern. Normal throat jonny isolated No pathogens isolatedNoGerman HospitalComment on above:Performed By: #### [id number], [id number], [id number] #### [facility] (DEFAULT) [address] [place], [place] [address]ED Clinical Summaryon 94-88-5218JK Clinical Summary [facility] ? Urgent Care [address] [place], [place] [id number] Clinical Summary PERSON INFORMATION Name: LIA DESAI Age: 23 Years Sex: FEMALE : 2000 MRN: Acct#: Visit Reason: Body aches; UC - Sore Throat; Earache; Cough; Throat pain - Adult; CONGESTION, BRYAN EAR PAIN, SORE THROAT, BODY ACHES Arrival: 01/28/2024 11:07:11 Discharge: 01/28/2024 12:39:00 LOS: 000 01:32 Check In: 01/28/2024 11:07:11 Checkout: 01/28/2024 12:39:00 Address: [address] [place] [address] PCP: ROBERT MARRERO PROVIDER INFORMATION Provider Role Assigned Unassigned Errol Ortega ED PA 01/28/2024 11:10:09 Corrina Grant DISPLAY DIRECTOR Nurse 01/28/2024 11:19:17 VITALS INFORMATION Vital Sign [...] With: Address: When: ROBERT MARRERO [address] [place] [address] Business (1) Within 5 to [...] - Patient/family/caregiver verbalizes understanding of instructions given Comment:[facility]woodsED Patient Summary [id number] Patient Summary [facility] ? Urgent Care [address] [place] [address] PATIENT DISCHARGE INSTRUCTIONS Patient Information Name: LIA DESAI Age: 23 Years Date of : 2000 Reason For Visit: Body aches; UC - Sore Throat; Earache; Cough; Throat pain - Adult; CONGESTION, BRYAN EAR PAIN, SORE THROAT, BODY ACHES Arrival Time: 01/28/2024 11:07:11 Primary Care Physician: ROBERT MARRERO Attending Physician: Errol Ortega Comment: Patient Education With: Address: When: ROBERT MARRERO [address] [place] [address] Business (1) Within 5 to [...] to help relieve symptoms, such as: ? Vjyf-rxu-obfrkzg cold medicines. ? Cough suppressants. Coughing is [...] other clear broths. General instructions ? Take wxvu-rba-xkrdooj and prescription medicines only as told by [...] soap and water are not available,use hand underwater roboticist. ? Avoid touching your mouth, face, eyes, or nose. ? Cough or sneeze into a tissue or your sleeve or elbow instead of into your hand or into the air. Contact a health care provider if: ? Y (more content not included)...[facility] Hospital at SouthwoodsPOIA Rapid CoV-2 (COVID-19) Antigen/ Flu A&Bon 10-24-9398Ikedktygx A POCTNegativeNormalNegative [facility] Hospital Of ColumbusComment on above:Performed By: #### [id number], [id number], [id number] #### [facility] (DEFAULT) [address] [place] [address] 27584Dihfxhxta B POCTNegativeNoProtestant Hospital Comment on above:Performed By: #### [id number], [id number], [id number] #### [facility] (DEFAULT) [address] [place] [address] 02757NDBV-JcV-8 (COVID-19) RNA MILY+probe Ql (Unsp spec)Not detectedNoGerman HospitalComment on above:Performed By: #### [id number], [id number], [id number] #### [facility] (DEFAULT) [address] [place] [address] 22556Dxcpv Aon 59-98-1976Uqxvq procedure controlPassNormBarberton Citizens HospitalComment on above:Performed By: #### [id number], [id number], [id number] #### [facility] (DEFAULT) [address] [place], [place] [address]LptnkhrvchwlgVibra Hospital of Western [facility] Comment on above:Performed By: #### [id number], [id number], [id number] #### [facility] (DEFAULT) [address] [place], [place] [address]Ywcacj Care Note- Provideron 07-15-8079Hxmjkt Care Note- ProviderPatient: LIA DESAI Age: 23 [...] Resolved Disease caused by 2019 novel coronavirus ([id number]): Onset on 11/23/2020 at 20 years. Resolved. Comments: 11/23/2020 CDT 16:07 CDT - SYSTEM Problem added by Rule (IC_COVID19_AUTO_PROBLEM) following 2019 Novel Coronavirus (CoVID-19), MILY L from Nasopharyngeal Swab collected on 22-NOV-2020 16:44:00 EDT tested positive for COVID-19. no history (179506243): Resolved. Contact dermatitis (07143496): Resolved. Pharyngitis (8380748032): Resolved. Cough (30027536): Resolved.. Surgical history: Tonsillectomy and adenoidectomy (911504648).. Family history: No family history items have [...] petechiae, no uvula s (more content not included)...[facility]woodsUrge Care Rec[facility] 81-23-8092MzvwpyDoctors Hospital ? Urgent Care [address] [place] [address] PATIENT DISCHARGE INSTRUCTIONS Patient Information Name: LIA DESAI Age: 23 Years Date of : 2000 Reason For Visit: Body aches; UC - Sore Throat; Earache; Cough; Throat pain - Adult; CONGESTION, BRYAN EAR PAIN, SORE THROAT, BODY ACHES Arrival Time: 01/28/2024 11:07:11 Primary Care Physician: ROBERT MARRERO Attending Physician: Errol Ortega Comment: Visit Diagnosis: Diagnoses This Visit Acute URI (J06.9) Body aches ([id number]) Cough ([id number]) Earache (R768407B-[id number]) Throat pain - Adult ([id number]) UC - Sore Throat ([id number]) If you received any narcotics, sedation, or [...] legal documents With: Address: When: ROBERT MARRERO [address] [place] [address] Business (1) Within 5 to 7 days Comments: Viral upper respiratory illness. mother. Contagious 72 hours from onset Strep, Covid, Flu negative. Vitals good today. Begin Mucinex 600mg 1 po BID x 7 days. Begin Saline nasal spray Consider humidifier or Vics salve. Return if worse in any way. Medication Information: The exam and treatment you received today in the [facility] were for an urgent problem and are not intended as complete care. It is important for you to follow up with a doctor, nurse practitioner, or physician?s assistant plant control operator for ongoing care. If your symptoms become [...] so we can reach you if necessary. [facility] has provided you with a complete list of medications post discharge. Please inform your chisel worker/provider of your visit and for further instruction on these medications. Any specific questions regarding your chronic medications and dosages should be discussed with your primary care physician(s) and/or pharmacist. New Medications [facility], [address], [place] [id number], [phone] guaiFENesin (Mucinex 600 mg oral tablet, extended release) 1 tab(s) Oral (given by mouth) Every 12 hours scheduled time as needed congestion for 10 Days. Refills: 0. sodium chloride nasal ([place] Saline Mist 0.65% nasal spray) 2 spray(s) [...] young or very old. (more content not included)...[facility] Hospital [facility] SouthwoodsALL CBC WITH AUTO DIFFon 05-01-0269ZWUDZGCXC ABSOLUTE AUTO0.1NOMS HealthcareBasophils/100 WBC (Bld)0.5 % 0.2 - 2.0 %NOMS HealthcareEosinophils/100 WBC (Bld)0.8 %Low0.9 - 7.0 %[facility] HealthcareErythrocyte distribution width (RBC) [Ratio]13.3 %11.0 - 15.0 %NOMS HealthcareHematocrit (Bld) [Volume fraction]31.5 %Low36.0 - 48.0 %[facility] HealthcareHemoglobin (Bld) [Mass/Vol]10.0 g/dLLow12.0 - 16.0 g/dLSaint Luke's Health System IMMATURE GRANULOCYTES ABS AUTO0.19HighNOSaint Luke's East HospitalImmature granulocytes/100 WBC (Bld)1.3 %High0.0 - 0.5 %[facility] [employer] [facility] HealthcareInterpretation and review of laboratory resultsAbnormalNOAL HealthcareLYMPHOCYTES ABSOLUTE AUTO4.0HighNOMS HealthcareLymphocytes/100 WBC (Bld)27.7 %20.5 - 60.0 %[facility] InstituteH (RBC) [Entitic mass]26.5 pgLow26.7 - 34.0 pgNOSaint Luke's East HospitalMCHC (RBC) [Mass/Vol]31.7 g/dL29.9 - 35.2 g/dLSaint Luke's Health SystemMCV (RBC) [Entitic vol]83.6 fL81.0 - 99.0 fL [facility] [facility] HealthcareMONOCYTES ABSOLUTE AUTO1.4HighNOAL HealthcareMonocytes/100 WBC (Bld)9.6 %1.7 - 12.0 %NOM HealthcareNEUTROPHILS ABSOLUTE AUTO8.6HighNOAL HealthcareNeutrophils/100 WBC (Bld)60.1 %43.0 - 75.0 %[facility] HealthcarePlatelet mean volume (Bld) [Entitic vol]10.2 fL9.5 - 13.5 fLSaint Luke's Health SystemTB EO #0.[address] John'STB [id number] [facility] RBC3.77LowNOSSM [facility] WBC14.3 HighVidant Pungo Hospital CBC WITH PLATELET NO DIFFERENTIALon 41-87-3339Zosxszuiypv distribution width (RBC) [Ratio]12.9 %11.0 - 15.0 %[facility] HealthcareHematocrit (Bld) [Volume fraction]36.4 %36.0 - 48.0 %[facility] HealthcareHemoglobin (Bld) [Mass/Vol]11.8 g/dLLow12.0 - 16.0 g/dLSaint Luke's Health System Interpretation and review of laboratory resultsAbnormalFreeman Neosho Hospital (RBC) [Entitic mass]26.9 pg26.7 - 34.0 pgSt. Louis Behavioral Medicine InstituteHC (RBC) [Mass/Vol]32.4 g/dL 29.9 - 35.2 g/dLSt. Louis Behavioral Medicine InstituteV (RBC) [Entitic vol]82.9 fL81.0 - 99.0 fLSaint Luke's Health SystemPlatelet mean volume (Bld) [Entitic vol]10.1 fL9.5 - 13.[address]LMercy Hospital South, [facility] [id number] [facility] RBC4.39NOSSM [facility] WBC14.6HPottstown HospitalYNFormerly Carolinas [facility] - MarionUS OB GROWTHon 88-68-5404Aym[place] [address] Ultrasound Report Signed Patient: LIA DESAI MR#: [id number] : 2000 Acct:[id number] Age/Sex: 23 / F ADM Date: 11/25/23 Loc: [facility] Attending Dr: Robert Marrero D.O. Ordering Physician: Robert Marrero D.O. Date of Service: 11/25/23 Procedure(s): OB growth Accession Number(s): [id number] cc: Robert Marrero D.O.; Physician,Non-Staff Nena The [address] [address] Patient Name: LIA DESAI MRN: [id number] date: 2000 Sex: F Assigned Patient Location: [facility] Current Patient Location: [facility] Accession/Order Number: [id number] Exam Date: 11/25/2023 11:30 Report Date: 11/25/2023 [...] M.D. Signed By: 11/25/231637 DD/ 35 TD/TT: Electrical Mechanic:BRODYHRadiology, Radiologist, - 11/25/2023 [place] [address] Ultrasound Report Signed Patient: LIA DESAI MR#: [id number] : 2000 Acct:[id number] Age/Sex: 23 / F ADM Date: 11/25/23 Loc: [facility] Attending Dr: Robert Marrero D.O. Ordering Physician: Robert Marrero D.O. Date of Service: 11/25/23 Procedure(s): US OB growth Accession Number(s): [id number] cc: Robert Marrero D.O.; Physician,Non-Staff MYohana The [place] [id number] Patient Name: LIA DESAI MRN: [id number] date: 2000 Sex: F Assigned Patient Location: [facility] Current Patient Location: [facility] Accession/Order Number: [id number] Exam Date: 11/25/2023 11:30 Report Date: 11/25/2023 [...] M.D. Signed By: 11/25/231637 DD/ 35 TD/TT: Electrical Mechanic: AHSAN HealthcareRadiology Study observation (narrative)[facility]ACHUSETTSKaci HealthcareUS OB GROWTHOrdered By: Radiologist Radiology on 14-79-3044JTDS [facility] Work Phone: US OB GROWTHon 09-17-7234VhpPort [place] [address] Ultrasound Report Signed Patient: LIA DESAI MR#: [id number] : 2000 Acct:[id number] Age/Sex: 22 / F ADM Date: 10/01/23 Loc: [facility] Attending Dr: Robert Marrero D.O. Ordering Physician: Robert Marrero D.O. Date of Service: 10/01/23 Procedure(s): US OB growth Accession Number(s): [id number] cc: Robert Marrero D.O.; Physician,Non-Staff Nena The [place] [address] Patient Name: LIA DESAI MRN: [facility]:[id number] date: 2000 Sex: F Assigned Patient Location: [facility] Current Patient Location: [facility] Accession/Order Number: [id number] Exam Date: 10/01/2023 10:42 Report Date: 10/01/2023 [...] Signed By: 10/01/23 1120 DD/ 1117 TD/TT: Electrical Mechanic:ADELAIDAadiology, Radiologist, - 10/01/2023 [place] [address] Ultrasound Report Signed Patient: LIA DESAI MR#: [id number] : 2000 Acct:[id number] Age/Sex: 22 / F ADM Date: 10/01/23 Loc: [facility] Attending Dr: Robert Marrero D.O. Ordering Physician: Robert Marrero D.O. Date of Service: 10/01/23 Procedure(s): US OB growth Accession Number(s): [id number] cc: Robert Marrero D.O.; Physician,Non-Staff Nena [place] [address] Patient Name: LIA DESAI MRN: [id number] date: 2000 Sex: F Assigned Patient Location[facility] Current Patient Location[facility] Accession/Order Number: [id number] Exam Date: 10/01/2023 10:42 Report Date: 10/01/2023 [...] Signed By: 10/01/23 1120 DD/ 1117 TD/TT: Electrical Mechanic: AHSAN HealthcareRadiology Study observation (narrative)AHSAN MorelandUS OB GROWTHOrdered By: Radiologist Radiology on 39-07-1457N[facility] Work Phone: US OB CERVICAL LENGTHon 36-28-8356ShiPort [place] [address] Ultrasound Report Signed Patient: LIA DESAI MR#: [id number] : 2000 Acct:[id number] Age/Sex: 22 / F ADM Date: Loc: [facility] 254-[address]: Robert Marrero D.O. Ordering Physician: Robert Marrero D.O. Date of Service: 09/10/23 Procedure(s): US OB cervical length Accession Number(s): [id number] cc: Robert Marrero D.O.; Physician,Non-Staff Nena [place] [address] Patient Name: LIA EDSAI MRN: [id number] date: 2000 Sex: F Assigned Patient Location: [facility] Current Patient Location: [facility] Accession/Order Number: [id number] Exam Date: 09/10/2023 13:54 Report Date: 09/10/2023 [...] M.D. Signed By: 09/10/231518 DD/ 15 TD/TT: Electrical Mechanic:ADELAIDAadiologdenia Radiologist, - 09/10/2023 [place] [address] Ultrasound Report Signed Patient: LIA DESAI MR#: [id number] : 2000 Acct:[id number] Age/Sex: 22 / F ADM Date: Loc: [facility] 254-[address]: Robert Marrero D.O. Ordering Physician: Robert Marrero D.O. Date of Service: 09/10/23 Procedure(s): US OB cervical length Accession Number(s): [id number] cc: Robert Marrero D.O.; Physician,Non-Staff Nena The [place] [address] Patient Name: LIA DESAI MRN: [id number] date: 2000 Sex: F Assigned Patient Location: [facility] Current Patient Location: [facility] Accession/Order Number: [id number] Exam Date: 09/10/2023 13:54 Report Date: 09/10/2023 [...] M.D. Signed By: 09/10/231518 DD/ 1516 TD/TT: Electrical Mechanic: AHSAN HealthcareRadiology Study observation (narrative)AHSAN HealthcareUS OB CERVICAL LENGTHOrdered By: Radiologist Radiology on 89-46-6234UPZT Healthcare Work Phone: US for multiple gestation limitedon 46-34-2196V[address] [address] Ultrasound Report Signed Patient: LIA DESAI MR#: [id number] : 2000 Acct:[id number] Age/Sex: 22 / F ADM Date: 08/28/23 Loc: [facility] Attending Dr: Robert Marrero D.O. Ordering Physician: Robert Marrero D.O. Date of Service: 08/28/23 Procedure(s): US OB follow up Accession Number(s): [id number] cc: Robert Marrero D.O.; Physician,Non-Staff Nena [address] [address] Patient Name: LIA DESAI MRN: [id number] date: 2000 Sex: F Assigned Patient Location: [facility] Current Patient Location: [facility] Accession/Order Number: [id number] Exam Date: 08/28/2023 08:34 Report Date: 08/28/2023 [...] Signed By: 08/28/23 1014 DD/ 1011 TD/TT: Electrical Mechanic:ADELAIDAadiologFior loza MD - 08/28/[address] [address] Ultrasound Report Signed Patient: LIA DESAI MR#: [id number] : 2000 Acct:[id number] Age/Sex: 22 / F ADM Date: 08/28/23 Loc: [facility] Attending Dr: Robert Marrero D.O. Ordering Physician: Robert Marrero D.O. Date of Service: 08/28/23 Procedure(s): US OB follow up Accession Number(s): [id number] cc: Robert Marrero D.O.; Physician,Non-Staff Nena The [place] [id number] Patient Name: LIA DESAI MRN: [id number] date: 2000 Sex: F Assigned Patient Location: [facility] Current Patient Location: [facility] Accession/Order Number: [id number] Exam Date: 08/28/2023 08:34 Report Date: 08/28/2023 [...] Signed By: 08/28/23 1014 DD/ 1011 TD/TT: Electrical Mechanic: AHSAN HealthcareRadiology Study observation (narrative)[facility] HealthcareUS for multiple gestation limitedOrdered By: Radiologist Radiology on 72-60-7455LORO [email or web address] Work Phone: no Panel InformationOrdered By: Radiologist Radiology on 61-54-0935TLOZ [facility] Work Phone: No Panel Informationon 98-40-5791Sbzgbvbhd Study observation (narrative)AHSAN MorelandUS OB ANATOMYon 76-48-8656Bxy[address] [address] Ultrasound Report Signed Patient: LIA DESAI MR#: [id number] : 2000 Acct:[id number] Age/Sex: 22 / F ADM Date: 07/31/23 Loc: [facility] Attending Dr: Robert Marrero D.O. Ordering Physician: Robert Marrero D.O. Date of Service: 07/31/23 Procedure(s): US OB anatomy Accession Number(s): [id number] cc: Robert Marrero D.O.; Physician,Non-Staff Nena [address] [address] Patient Name: LIA DESAI MRN: [facility]:[id number] date: 2000 Sex: F Assigned Patient Location: [facility] Current Patient Location: [facility] Accession/Order Number: [id number] Exam Date: 07/31/2023 10:47 Report Date: 07/31/2023 [...] Signed By: 07/31/23 1232 DD/ 1229 TD/TT: Electrical Mechanic:TBHRadiology, Radiologist, MD - 07/31/2023 [place] [address] Ultrasound Report Signed Patient: LIA DESAI MR#: [id number] : 2000 Acct:[id number] Age/Sex: 22 / F ADM Date: 07/31/23 Loc: [facility] Attending Dr: Robert Marrero D.O. Ordering Physician: Robert Marrero D.O. Date of Service: 07/31/23 Procedure(s): US OB anatomy Accession Number(s): [id number] cc: Robert Marrero D.O.; Physician,Non-Staff Nena The [address] [address] Patient Name: LIA DESAI MRN: [id number] date: 2000 Sex: F Assigned Patient Location[facility] Current [facility] Accession/Order Number: [id number] Exam Date: 07/31/2023 10:47 Report Date: 07/31/2023 [...] Signed By: 07/31/23 1232 DD/ 1229 TD/TT: Electrical Mechanic: AHSAN Alvarez OB CERVICAL LENGTHon 46-67-2609XwrPort [place] [address] Ultrasound Report Signed Patient: LIA DESAI MR#: [id number] : 2000 Acct:[id number] Age/Sex: 22 / F ADM Date: 07/31/23 Loc: [facility] Attending Dr: Robert Marrero D.O. Ordering Physician: Robert Marrero D.O. Date of Service: 07/31/23 Procedure(s): US OB cervical length Accession Number(s): [id number] cc: Robert Marrero D.O.; Physician,Non-Staff MYohana [place] [id number] Patient Name: LIA DESAI MRN: [id number] date: 2000 Sex: F Assigned Patient Location: [facility] Current [facility] Location: [facility] Accession/Order Number: [id number] Exam Date: 07/31/2023 10:47 Report Date: 07/31/2023 [...] Signed By: 07/31/23 1232 DD/ 1229 TD/TT: Electrical Mechanic:TBHRadiology, Radiologist, MD - 07/31/2023 [place] [address] Ultrasound Report Signed Patient: LIA DESAI MR#: [id number] : 2000 Acct:[id number] Age/Sex: 22 / F ADM Date: 07/31/23 Loc: [facility] Attending Dr: Robert Marrero D.O. Ordering Physician: Robert Marrero D.O. Date of Service: 07/31/23 Procedure(s): US OB cervical length Accession Number(s): [id number] cc: Robert Marrero D.O.; Physician,Non-Staff Nena The [place] [address] Patient Name: LIA DESAI MRN: [id number] date: 2000 Sex: F Assigned Patient Location: [facility] Current Patient Location: [facility] Accession/Order Number: [id number] Exam Date: 07/31/2023 10:47 Report Date: 07/31/2023 [...] Signed By: 07/31/23 1232 DD/ 1229 TD/TT: Electrical Mechanic: AHSAN [facility] CenterCytology Cervical or vaginal smear or scraping studyon 07-01-2023 NOM HealthcareALL CBC WITH AUTO DIFFon 90-62-5557YIGGPNDRW ABSOLUTE AUTO0.0[facility] HealthcareBasophils/100 WBC (Bld)0.3 %0.2 - 2.0 %[facility] HealthcareEosinophils/100 WBC (Bld)0.5 %Low0.9 - 7.0 %[facility] HealthcareErythrocyte distribution width (RBC) [Ratio]12.2 %11.0 - 15.0 %[facility] HealthcareHematocrit (Bld) [Volume fraction]38.6 %36.0 - 48.0 %[facility] HealthcareHemoglobin (Bld) [Mass/Vol]12.3 g/dL12.0 - 16.0 g/dLSaint Luke's Health SystemIMMATURE GRANULOCYTES ABS AUTO0.02[facility] HealthcareImmature granulocytes/100 WBC (Bld)0.2 %0.0 - 0.5 %[facility] HealthcareInterpretation and review of laboratory resultsAbnormalNOAL HealthcareLYMPHOCYTES ABSOLUTE AUTO3.1 [facility] SystemLymphocytes/100 WBC (Bld)32.8 %20.5 - 60.0 %[facility] InstituteH (RBC) [Entitic mass]28.6 pg26.7 - 34.0 pgSt. Louis Behavioral Medicine InstituteHC (RBC) [Mass/Vol] 31.9 g/dL29.9 - 35.2 g/dLSt. Louis Behavioral Medicine InstituteV (RBC) [Entitic vol]89.8 fL81.0 - 99.0 fLSaint Luke's Health SystemMONOCYTES ABSOLUTE AUTO0.7NOAL HealthcareMonocytes/100 WBC (Bld)7.7 %1.7 - 12.0 %[facility] SystemNEUTROPHILS ABSOLUTE AUTO5.4[facility] Neutrophils/100 WBC (Bld)58.5 %43.0 - 75.0 %[facility] Health SystemPlatelet mean volume (Bld) [Entitic vol]10.7 fL9.5 - 13.5 fLSaint Luke's Health SystemTB EO #0.1[facility] TB [id number] [facility] RBC4.30[facility] WBC9.3[facility] CLINISYNCNOAL HealthcareUS OB TRANSVAGINALon 34-60-5636ZmyPort [place] [address] Ultrasound Report Signed Patient: Lia Desai MR#: [id number] : 2000 Acct:[id number] Age/Sex: 22 / F ADM Date: 05/02/23 Loc: [facility] Attending Dr: Robert Marrero D.O. Ordering Physician: Robert Marrero D.O. Date of Service: 05/02/23 Procedure(s): US OB transvaginal Accession Number(s): [id number] cc: Robert Marrero D.O.; Physician,Non-Staff Nena The [place] [phone] Patient Name: LIA DESAI MRN: [id number] date: 2000 Sex: F Assigned Patient Location: [facility] Current Patient Location: [facility] Accession/Order Number: [id number] Exam Date: 05/02/2023 12:36 Report Date: 05/02/2023 [...] Signed By: 05/02/23 1339 DD/ 35 TD/TT: Electrical Mechanic:BRODYHRadiology, Radiologist, MD - 05/02/2023 [place] [address] Ultrasound Report Signed Patient: Lia Desai MR#: [id number] : 2000 Acct:[id number] Age/Sex: 22 / F ADM Date: 05/02/23 Loc: [facility] Attending Dr: Robert Marrero D.O. Ordering Physician: Robert Marrero D.O. Date of Service: 05/02/23 Procedure(s): US OB transvaginal Accession Number(s): [id number] cc: Robert Marrero D.O.; Physician,Non-Staff Nena The [place] [id number] Patient Name: LIA DESAI MRN: [id number] date: 2000 Sex: F Assigned Patient Location: [facility] Current Patient Location: [facility] Accession/Order Number: [id number] Exam Date: 05/02/2023 12:36 Report Date: 05/02/2023 [...] Signed By: 05/02/23 1339 DD/ 1336 TD/TT: Electrical Mechanic: AHSAN HealthcareRadiology Study observation (narrative)[facility] HealthcareUS OB TRANSVAGINALOrdered By: Radiologist Radiology on 21-49-5651HFWO Healthcare Work Phone: US PREG TVon 77-21-5368QV PREG TVEXAMINATION: US PREG TV HISTORY: Missed [...] Electronically authenticated by: CHRISTIAN HOPE Date: 2022-08-08 16:56[facility] HospitalUS PELVIS AND TRANSVAGon 02-34-2455UL PELVIS AND TRANSVAG EXAMINATION: US PELVIS AND [...] Electronically authenticated by: ANGELA SCOTT Date: 2022-06-04 06:57[facility] HospitalUS PREG TVon 37-86-6034ZH PREG TVEXAMINATION: US PREG TV HISTORY: Uncertain [...] authenticated by: CHRISTIAN HOPE Date: 2022-05-16 18:15NormalThe Rochester HospitalHEP B SURFACE ANTIGEN SCREENon 43-34-4522UGiYr ScreenNegative NormalNegativeThe [facility] on above:Performed By: #### HBSANS #### [facility] [address] [place] [address] Dr. Jeronimo MelgarHEPATITIS C VIRUS AB W/ REFLEX QUANTon 82-32-7042DOI AB<0.1Normal 0.0-0.9The [facility] on above:Performed By: #### HCVPCRR #### [facility] [address] [place] [address] Dr. Jeronimo MelgarInterpretation:CommentNormalThe [facility] on above:Result Comment: Negative Not infected with HCV, unless recent infection is suspected or other evidence exists to indicate HCV infection.Performed By: #### HCVPCRR #### [place] [address] Dr[address] Jeronimo MelgarHIV 1 AND 2 WITH REFLEXon 68-72-3790PIR Screen 4th Generation wRfxNon-ReactiveNormalNon ReactiveThe [facility] on above:Result Comment: HIV Negative HIV-1/HIV-2 antibodies and HIV-1 p24 antigen were NOT detected. There is no laboratory evidence of HIV infection.Performed By: #### HIV12 #### [place] [address] [address] Jeronimo MelgarRPJeannie QUANTon 03-93-3647Ohvxu Plasma Reagin, QuantNon-Reactive NormalNonRea<1:1The [facility] on above:Result Comment: Please Note: This test does not meet current guidelines for screening and diagnosis of syphilis. This test is intended for following treatment response in patients being treated for syphilis infection. To screen for syphilis infection, a reflex cascade that includes both RPR and a treponema-specific assay should be utilized, such as Treponema pallidum (Syphilis) Screening Casey (438323) or Rapid Plasma Reagin (RPR) Test With Reflex to Quantitative RPR and Confirmatory Treponema pallidum Antibodies (422959).Performed By: #### RPRQ #### [facility] [address] [place] [address] Dr. Jeronimo Gan AB IGGon 19-14-5260Egdzpkp Antibodies, IgG1.85 index NormalImmune >0.99The [facility] HospitalComment on above:Result Comment: Non- immune <0.90 Equivocal 0.90 - 0.99 Immune >0.99Performed By: #### BOX #### [facility] [address] [place] [address] Dr. Jeronimo MelgarBOX TEST SENT OUTon 68-71-9851QFVO TO REF LAB04/19/2022NormalThOhioHealth Marion General HospitalComment on above:Performed By: #### BOX #### [facility] [address] [place] [address] Dr. Jeronimo PriceC AUTO DIFFon 65-07-0722JPBU #0.1 103/ulNormal0.0-0.1The [facility] HospitalComment on above:Performed By: #### BOX #### [facility] [address] [place] [address] Dr. Jeronimo MelgarBasophils/100 WBC (Bld)0.5 %Normal0.2-2.0The [facility] Comment on above:Performed By: #### BOX #### [facility] [address] [place] [address] Dr. Jeronimo Scott #0.1 103/ulNormal0.0-0.7The [facility] HospitalComveterans affairs [facility] on above: Performed By: #### BOX #### [facility] [address] [place] [address] Dr. Jeronimo Parrishosinophils/100 WBC (Bld)0.7 %Critically low0.9-7.0The [facility] HospitalComment on above:Performed By: #### BOX #### [facility] [address] [place] [address] Dr. Jeronimo Parrishrythrocyte distribution width (RBC) [Ratio]12.8 %Igafwn77.0-15.0 The [facility] HospitalComment on above:Performed By: #### BOX #### [facility] [address] [place] [address] Dr. Jeronimo MelgarHematocrit (Bld) [Volume fraction]43.7 %Uubnpm85.0-48.0The [facility] HospitalComment on above:Performed By: #### BOX #### [facility] [address] [place] [address] Dr. Jeronimo MelgarHemoglobin (Bld) [Mass/Vol]13.1 g/fOVsnbgm96.0-16.0The [facility] HospitalComment on above:Performed By: #### BOX #### [facility] [address] [place] [address] Dr. Jeronimo Francis #0.02 10e3/ulNormal0.00-0.03The [facility] HospitalComment on above:Performed By: #### BOX #### [facility] [address] [place] [address] Dr. Jeronimo Francis %0.2 %Normal0.0-0.5The [facility] HospitalComment on above: Performed By: #### BOX #### [facility] [address] [place] [address] Dr. Jeronimo Almanza #2.6 103/ulNormal1.2-3.8The [facility] HospitalComment on above:Performed By: #### BOX #### [facility] [address] [place] [address] Dr. Jeronimo Antoniomphocytes/100 WBC (Bld)27.3 %Aekeip65.5-60.0The [facility] HospitalComment on above:Performed By: #### BOX #### [facility] [address] [place] [address] Dr. Jeronimo CovarrubiasUAL DIFF REQNONormalThe [facility] HospitalComment on above: Performed By: #### BOX #### [facility] [address] [place] [address] Dr. Jeronimo Smith (RBC) [Entitic mass]27.7 ypWmukug40.7-34.0The [facility] HospitalComment on above:Performed By: #### BOX #### [facility] [address] [place] [address] Dr. Jeronimo JacobsenHC (RBC) [Mass/Vol]30.0 g/iNZszgdt54.9-35.2The [facility] HospitalComment on above:Performed By: #### BOX #### [facility] [address] [place] [address] Dr. Jeronimo JacobsenV (RBC) [Entitic vol]92.4 vNYfuupf81.0-99.0The [facility] HospitalComment on above:Performed By: #### BOX #### [facility] [address] [place] [address] Dr. Jeronimo Smith #0.8 103/ulNormal0.3-0.8The [facility] HospitalComment on above:Performed By: #### BOX #### [facility] [address] [place] [address] Dr. Jeronimo Menardocytes/100 WBC (Bld)7.8 %Normal1.7-12.0The [facility] Comment on above:Performed By: #### BOX #### [facility] [address] [place] [address] Dr. Jeronimo Patel #6.1 103/ulNormal1.4-6.5The [facility] HospitalComment on above:Performed By: #### BOX #### [facility] [address] [place] [address] Dr. Jeronimo Madsenutrophils/100 WBC (Bld)63.5 %Bnaclp77.0-75.0The [facility] HospitalComment on above:Performed By: #### BOX #### [facility] [address] [place] [address] Dr. Jeronimo Suttonlet mean volume (Bld) [Entitic vol]10.7 fLNormal9.5-13.5The [facility] HospitalComment on above:Performed By: #### BOX #### [facility] [address] [place] [address] Dr. Jeronimo MelgarPLT399 103/jiEfgjxu090-857Llb [facility] HospitalComment on above: Performed By: #### BOX #### [facility] [address] [place], [place] [address] Dr. Jeronimo AcostaC4.73 106/ulNormal4.20-5.40[facility] on above:Performed By: #### BOX #### [facility] [address] [place] [address] Dr. Jeronimo MelgarWBC9.6 103/ulNormal4.0-11.0[facility] on above: Performed By: #### BOX #### [facility] [address] [place] [address] Dr. Jeronimo Mirza URINEon 44-06-4146XWYSANF URINECulture Observations: LIGHT GROWTH OF MIXED GENITAL JONNY. NO POTENTIAL PATHOGENS SEEN.NormalThe [facility] on above:Performed By: #### BOX #### [facility] [address] [place] [address] Dr. Jeronimo Rodriguez SCREEN RAPID (URINE)on 42-62-8073HLFPhbgoetwZbdpwqKZOEJDLM [facility] on above:Performed By: #### HIV12 #### [facility] [address] [place] [address] Dr. Jeronimo FreedNegativeNormalNEGATIVEMemorial Health System [facility] on above: Performed By: #### HIV12 #### [facility] [address] [place] [address] Dr. Jeronimo HiltonPNegativeNormalNEGATIVEMemorial Health System [facility] on above: Performed By: #### HIV12 #### [facility] [address] [place] [address] Dr. Jeronimo AliceaZONegativeNormalNEGATIVEMemorial Health System [facility] on above: Performed By: #### HIV12 #### [facility] [address] [place] [address] Dr. Jeronimo GayCNegativeNormalNEGProMedica Fostoria Community Hospital on above: Performed By: #### HIV12 #### [facility] [address] [place] [address] Dr. Jeronimo Kramer-Children's Hospital for RehabilitationComment on above: Result Comment: AMP (Amphetamine): 500ng/mL, BAR (Barbituates): 200 ng/mL, BZO (Benzodiazepines): 150 ng/mL, BUP (Buprenorphine): 10 ng/mL, KRISTINA (Cocaine): 150 ng/mL, mAMP (Methamphetamine): 500 ng/mL, MTD (Methadone): 200 ng/mL, OPI (Opiates): 100 ng/mL, OXY (Oxycodone): 100 ng/mL, PCP (Phencyclidine): 25 ng/mL, PPX (Propoxyphene): 300 ng/mL, THC (Cannabinoids): 50 ng/mL, TCA (Trycyclic Antidepressants): 300 ng/mLPerformed By: #### HIV12 #### [facility] [address] [place] [address] Dr. Jeronimo MelgarDRUG CUT HEADERDRUG CLASS TEST SYSTEM CUT-OFF CONCENTRATIONS ARE FOLLOWS:NormalThe [facility] Hospitalment on above:Performed By: #### HIV12 #### [facility] [address] [place] [address] Dr. Jeronimo MelgarmAMPNegativeNormalNEGATIVEFisher-Titus Medical CenterComveterans affairs [facility] on above: Performed By: #### HIV12 #### [facility] [address] [place] [address] Dr. Jeronimo MelgarMTDNegativeNormalNEGATIVEMemorial Health System [facility] on above: Performed By: #### HIV12 #### [facility] [address] [place] [address] Dr. Jeronimo MelgarOPINegativeNormalNEGATIVEFisher-Titus Medical CenterComveterans affairs [facility] on above: Performed By: #### HIV12 #### [facility] [address] [place] [address] Dr. Jeronimo MelgarOXYNegativeNormalNEGATIVEMemorial Health System [facility] on above: Performed By: #### HIV12 #### [facility] [address] [place] [address] Dr. Jeronimo MelgarPCPNegativeNormalNEGATIVEFisher-Titus Medical CenterComveterans [facility] on above: Performed By: #### HIV12 #### [facility] [address] [place] [address] Dr. Jeronimo MelgarPPXNegativeNormalNEGATIVEFisher-Titus Medical CenterComment on above: Performed By: #### HIV12 #### [facility] [address] [place] [address] Dr. Jeronimo MelgarTCANegativeNormalNEGATIVEMemorial Health System [facility] on above: Performed By: #### HIV12 #### [facility] [address] [address] [address] Jeronimo MelgarTHCNegativeNormalNEGATIVEMemorial Health System [facility] on above: Performed By: #### HIV12 #### [facility] [address] [place] [address] Dr. Jeronimo MelgarGLYCOHEMOGLOBIN A1Con 75-57-8464EUL RECOMMENDATIONSEE BELOWNormal [facility] Medical CenterComveterans affairs [facility] on above:Result Comment: ADA RECOMMENDED LIMIT 4.0 - 6.0 ADA THERAPEUTIC TARGET < 7.0 ACTION SUGGESTED > 7.0Performed By: #### A1C #### [facility] [address] [place] [address] Dr. Jeronimo MelgarGlucose [Mass/Vol]100 mg/dLNoGreene Memorial HospitalComveterans affairs [facility] on above:Performed By: #### A1C #### [facility] [address] [place] [address] Dr. Jeronimo MelgarHbA1c (Bld) [Mass fraction]5.1 %Normal4.5-6.2The [facility] on above:Performed By: #### A1C #### [facility] [address] [place] [address] Dr. Jeronimo MelgarTYPE AND SCREENon 14-80-7572JGUT AND SCREENNegativeNoGreene Memorial HospitalComveterans affairs [facility] on above:Performed By: #### BOX #### [facility] [address] [place] [address] Dr. Jeronimo MelgarCBC AUTO DIFFon 05-50-9359ZEWS #0.0 103/ulNormal0.0-0.1[facility] on above:Performed By: #### CBC #### [facility] [address] [place] [address] Dr. Jeronimo MelgarBasophils/100 WBC (Bld)0.3 %Normal0.2-2.0The [facility] Comment on above:Performed By: #### CBC #### [facility] [address] [place] [address] Dr. Jeronimo Scott #0.0 103/ulNormal0.0-0.7The [facility] HospitalComment on above: Performed By: #### CBC #### [facility] [address] [place] [address] Dr. Jernoimo Parrishosinophils/100 WBC (Bld)0.2 %Critically low0.9-7.0The [facility] HospitalComment on above:Performed By: #### CBC #### [facility] [address] [place] [address] Dr. Jeronimo Parrishrythrocyte distribution width (RBC) [Ratio]12.9 %Qoenul31.0-15.0 The [facility] HospitalComment on above:Performed By: #### CBC #### [facility] [address] [place] [address] Dr. Jeronimo MelgarHematocrit (Bld) [Volume fraction]37.5 %Fqglzm22.0-48.0The [facility] HospitalComment on above:Performed By: #### CBC #### [facility] [address] [place] [address] Dr. Jeronimo MelgarHemoglobin (Bld) [Mass/Vol]12.4 g/xMZtrnqp69.0-16.0The [facility] HospitalComment on above:Performed By: #### CBC #### [facility] [address] [place] [address] Dr. Jeronimo Francis #0.05 10e3/ulCritically high0.00-0.03The [facility] Comment on above:Performed By: #### CBC #### [facility] [address] [place] [address] Dr. Jeronimo Francis %0.3 %Normal0.0-0.5The [facility] HospitalComment on above: Performed By: #### CBC #### [facility] [address] [address] [address] Jeronimo Almanza #2.0 103/ulNormal1.2-3.8The [facility] Hospitalment on above:Performed By: #### CBC #### [facility] [address] [address] [address] Jeronimo Antoniomphocytes/100 WBC (Bld)14.1 %Critically low20.5-60.0The [facility] HospitalComment on above:Performed By: #### CBC #### [facility] [address] [place] [address] Dr. Jeronimo Angeles DIFF REQNONormalThe [facility] HospitalComment on above: Performed By: #### CBC #### [facility] [address] [place] [address] Dr. Jeronimo Jacobsen (RBC) [Entitic mass]27.9 ueTymrmz08.7-34.0The [facility] HospitalComment on above:Performed By: #### CBC #### [facility] [address] [place] [address] Dr. Jeronimo Jacobsen (RBC) [Mass/Vol]33.1 g/lYHbfkoe29.9-35.2The [facility] Hospitalment on above:Performed By: #### CBC #### [facility] [address] [place] [address] Dr. Jeronimo Jacobsen (RBC) [Entitic vol]84.3 eDJtdtjh90.0-99.0The [facility] Hospitalment on above:Performed By: #### CBC #### [facility] [address] [place] [address] Dr. Jeronimo Smith #0.6 103/ulNormal0.3-0.8The [facility] Hospitalment on above:Performed By: #### CBC #### [facility] [address] [place] [address] Dr. Jeronimo Menardocytes/100 WBC (Bld)4.0 %Normal1.7-12.0The [facility] Comment on above:Performed By: #### CBC #### [facility] [address] [address] [address] Jeronimo Patel #11.7 103/ulCritically high1.4-6.5The [facility] Comment on above:Performed By: #### CBC #### [facility] [address] [place] [address] Dr. Jeronimo Madsenutrophils/100 WBC (Bld)81.1 %Critically high43.0-75.0The [facility] HospitalComment on above:Performed By: #### CBC #### [facility] [address] [place] [address] Dr. Jeronimo Suttonlet mean volume (Bld) [Entitic vol]10.2 fLNormal9.5-13.5The [facility] HospitalComment on above:Performed By: #### CBC #### [facility] [address] [place] [address] Dr. Jeronimo MelgarPLT420 103/ojGfknuj527-746Yjo [facility] HospitalComment on above: Performed By: #### CBC #### [facility] [address] [place] [address] Dr. Jeronimo MelgarRBC4.45 106/ulNormal4.20-5.40The [facility] HospitalComment on above:Performed By: #### CBC #### [facility] [address] [place] [address] Dr. Jeronimo MelgarWBC14.4 103/ulCritically high4.0-11.0The [facility] HospitalComment on above:Performed By: #### CBC #### [facility] [address] [place] [address] Dr. Decker ChangER URINE PROFILEon 35-52-7198Kcjzpnhmw Ql (U)NegativeNormal NEGATIVEThe [facility] HospitalComment on above:Performed By: #### BOX #### [facility] [address] [place] [address] Dr. Jeronimo MelgarClarity (U)CLEARNormalCLEARThe [facility] HospitalComment on above: Performed By: #### BOX #### [facility] [address] [address] [address] Jeronimo Gaylor (U)YELLOWNormalYELLOWFisher-Titus Medical CenterComment on above: Performed By: #### BOX #### [facility] [address] [place] [address] Dr. Jeronimo Murcia micrscopic examination will be performed if indicated. NormalThe [facility] HospitalComment on above:Performed By: #### BOX #### [facility] [address] [place] [address] Dr. Jeronimo MelgarGlucose Ql (U)NegativeNormalNEGATIVEFisher-Titus Medical CenterComment on above:Performed By: #### BOX #### [facility] [address] [place] [address] Dr. Jeronimo MelgarHemoglobin Ql (U)NegativeNormalNEGATIVEAultman Alliance Community Hospital on above:Performed By: #### BOX #### [facility] [address] [place] [address] Dr. Jeronimo Cantorones Ql (U)>=80AbnormalNEGATIVEFisher-Titus Medical CenterComment on above:Performed By: #### BOX #### [facility] [address] [place] [address] Dr. Jeronimo MelgarLEUKOCYTESNegativeNormalNEGATIVEFisher-Titus Medical CenterComveterans affairs [facility] on above:Performed By: #### BOX #### [facility] [address] [place] [address] Dr. Jeronimo MelgarNitrite Ql (U)NegativeNormalNEGATIVEFisher-Titus Medical CenterComment on above:Performed By: #### BOX #### [facility] [address] [place] [address] Dr. Jeronimo MelgarpH (U)7.0 [pH]Normal5-9[facility] Healthment on above: Performed By: #### BOX #### [facility] [address] [place] [address] Dr. Jeronimo MelgarSPEC GRAVITY1.883Xboqet8.005-<=1.025The [facility] HospitalComment on above:Performed By: #### BOX #### [facility] [address] [address] [address] Jeronimo Cardenas PROTEINTRACENormalNEGATIVE/ TRACEThe [facility] HospitalComment on above:Performed By: #### BOX #### [facility] [address] [address] [address] Jeronimo Hutson MICRO INDNOT INDICATEDNormalThe [facility] HospitalComment on above:Performed By: #### BOX #### [facility] [address] [address] [address] Jeronimo Zhangbilinogen Qn (U)1.0 {Pepito'U}/dLNormal0.2 - 1.0The [facility] HospitalComment on above:Performed By: #### BOX #### [facility] [address] [place] [address] Dr. Jeronimo DomingoF CHEM 8 (BAS METB)on 13-81-4005Gzdmh gap [Moles/Vol]12.7 mmol/LNormalThe [facility] HospitalComment on above:Performed By: #### BMP #### [facility] [address] [place] [address] Dr. Jeronimo MelgarCalcium [Mass/Vol]9.1 mg/dLNormal8.5-10.1The [facility] Comment on above:Performed By: #### BMP #### [facility] [address] [place] [address] Dr. Jeronimo MelgarChloride [Moles/Vol]103 mmol/EIlffvd20-253Mop [facility] Comment on above:Performed By: #### BMP #### [facility] [address] [place] [address] Dr. Jeronimo MelgarCO2 [Moles/Vol]23.9 mmol/JGvgwrg96.0-32.0The [facility] Comment on above:Performed By: #### BMP #### [facility] [address] [place] [address] Dr. Jeronimo MelgarCreatinine [Mass/Vol]0.78 mg/dLNormal0.55-1.02The [facility] HospitalComment on above:Performed By: #### BMP #### [facility] [address] [address] [address] Jeronimo ParrishGFR-AF ST LUCIAN>60Normal>=60The [facility] HospitalComment on above:Performed By: #### BMP #### [facility] [address] [address] [address] Jeronimo ParrishGFR-NON AF ST LUCIAN>60Normal>=60The [facility] HospitalComment on above:Performed By: #### BMP #### [facility] [address] [address] [address] Jeronimo MelgarGlucose [Mass/Vol]155 mg/dLCritically emph04-454Sut [facility] on above:Performed By: #### BMP #### [facility] [address] [address] [address] Jeronimo MelgarPotassium [Moles/Vol]3.6 mmol/LNormal3.5-5.1The [facility] Comment on above:Performed By: #### BMP #### [facility] [address] [address] [address] Jeronimo MelgarSodium [Moles/Vol]136 mmol/GUyxqwb328-861Rvm [facility] Comment on above:Performed By: #### BMP #### [facility] [address] [address] [address] Jeronimo MelgarUrea nitrogen [Mass/Vol]7.0 mg/dLNormal7.0-18.0The [facility] HospitalComment on above:Performed By: #### BMP #### [facility] [address] [address] [address] Jeronimo Escobar nitrogen/Creatinine [Mass ratio]9.0 mg/mgNormalThe [facility] HospitalComment on above:Performed By: #### BMP #### [facility] [address] [place] [address] Dr. Jeronimo Amos PREG TVon 24-85-4800YD PREG TVEXAMINATION: US PREG TV HISTORY: Missed [...] Electronically authenticated by: ANGELA SCOTT Date: 2022-03-28 16:32[facility] HospitalUS PELVIS AND TRANSVAGon 99-76-6740UE PELVIS AND TRANSVAG EXAMINATION: US PELVIS AND [...] Electronically authenticated by: CHRISTIAN HOPE Date: 2021-10-17 16:35[facility] HospitalCHLAMYDIA/GONOCOCCUS MILY (SWAB/URINE/PAPon 29-50-5340Ordiisyyl trachomatis, NAAPositiveAbnormalNegativeThe [facility] HospitalComment on above: Result Comment: .Performed By: #### CT/NGNA #### [facility] [address] [place] [address] Dr. Jeronimo MelgarNeisseria gonorrhoeae, NAANegativeNormalNegativeThe [facility] HospitalComment on above:Performed By: #### CT/NGNA #### [facility] [address] [place] [address] Dr. Jeronimo MelgarVAGINITIS/VAGINOSIS DNA PROBEon 92-66-3249Wuucauz speciesNegative NormalNegativeThe [facility] HospitalComment on above:Performed By: #### VAGINT #### [facility] [address] [address] [address] Jeronimo Mabry vaginalisNegativeNormalNegativeFisher-[facility] Comment on above:Performed By: #### VAGINT #### [facility] [address] [address] [address] Jeronimo Castañeda vaginalisNegativermalNegativeFisher-Titus Medical Center Comment on above:Performed By: #### VAGINT #### [facility] [address] [address] [address] Jeronimo MelgarXR foot LT min 3V*on 89-26-3175TO foot LT min 3V*[facility] Main [place] [address] [place] [address] XRay Report Signed Patient: Lia Desai MR#: [id number] : 2000 Acct:[id number] Age/Sex: 20 / F ADM Date: 07/18/21 Loc: ER Room: Type: [facility] ER Attending Dr: Ordering Provider: Oneil Ricci APRN Date of Service: 07/18/21 XR/XR foot LT min 3V*: Extremity Injury, Lower ([id number]) XR/XR ankle LT min 3V*: Extremity Injury, [...] Brewer Jr., M.D.07/18/2021 6:15 PM Dictation Location: [place] [address] Transcribed By: CYNDEE 07/18/211814 Dictated By: Bijan Brewer Jr, MD 07/18/211812 Signed By: 07/18/211814[facility]XR [facility] 4V*on 05-15-2021 XR knee RT 4V*[facility] Main [place] [id number] XRay Report Signed Patient: Lia Desai MR#: [id number] : 2000 Acct:[id number] Age/Sex: 20 / F ADM Date: 05/15/21 [...] Ana Juan M.D.05/15/2021 8:11 PM Dictation Location: [place] [address] Transcribed By: [facility] 05/15/212010 Dictated By: Ana Juan II, MD 05/15/212008 Signed By: 05/15/212010[facility] Vital Signs Date TimeVital SignValuePerforming FntbzczpiMfyfoljf08-00-2494 10:48-0400Body mass index (BMI) [Ratio]42.57 kg/m2Nano MILLS Work Phone: [facility] SystemFjephuixye63-71-3182 10:48-0400Body bxixme907.64 kgNano MILLS Work Phone: [facility] SystemHannulayum86-51-5421 10:48-0400Diastolic blood jcusfrpj87 mm[Hg][employer] Work Phone: [phone] [place] [address]-28-2025 10:48-0400Systolic blood vraqxzrm005 mm[Hg]Nano Back PA Work Phone: [phone])[address] [place], [place] [address]10-14-2025 11:25-0400Body mass index (BMI) [Ratio]41.66 kg/m2Amy Nazanin PA Work Phone: [phone])042-[address] [place], [place] [address]Ahhkaxooxh56-42-0880 11:25-0400Body vibimh109.08 kgAmy Nazanin PA Work Phone: [phone])[facility] [place], [place] [address]Lcjvtpohya24-80-8121 11:25-0400Diastolic blood vprquqxs04 mm[Hg]N[employer] PA Work Phone: [phone] [place], [place] [address]Feqytatkre06-87-2268 11:25-0400Systolic blood fganhhvm117 mm[Hg]Nano Back PA Work Phone: [phone])[facility] [place], [place] [address]Yepklvmokd39-49-7769 09:42-0400Body mass index (BMI) [Ratio]41.22 kg/e2VsznbaadMag Samuels [employer] Work Phone: 1(071)[facility] [place], [place] [address]Aonrsjszxc61-83-0679 09:42-0400Body fafvwu875.85 kgMag Samuels [employer] Work Phone: 1(330)[facility] [place], [place] [address]Fsinbzdofk63-93-1906 09:42-0400Diastolic blood eofcbziy16 mm[Hg]Mag Samuels [employer] Work Phone: [phone])077-[address] [place], [place] [address]Hcitqmtbzj90-13-6159 09:42-0400Systolic blood dxbdercl582 mm[Hg]Mag Samuels [employer] Work Phone: [phone])[address] [place] [address]-15-2025 10:37-0400Body mass index (BMI) [Ratio]41.2 kg/m2Amy Nazanin PA Work Phone: [phone])[address] [place] [address]-15-2025 10:37-0400Body .78 kgAmy Nazanin PA Work Phone: 1(209)[facility] [place] [address]-15-2025 10:37-0400Diastolic blood seqjkjmh66 mm[Hg]Nano Back PA Work Phone: 1(202)[facility] [place] [address]-15-2025 10:37-0400Systolic blood mm[Hg][employer] Work Phone: 1([phone])254-[address] [place], [place] [address]Cznjdgynuo30-99-4986 10:50-0400Body mass index (BMI) [Ratio]41.13 kg/y5Inyyv Janes DO Work Phone: [phone])508-[address] [place], [place] [address]Nidvznyglp57-42-0661 10:50-0400Body enduhi778.58 kgCorey Janes DO Work Phone: [phone])661-[address] [place], [place] [address]Rjflwnatxx81-35-7911 10:50-0400Diastolic blood vdrdjimm23 mm[Hg]Robert Janes DO Work Phone: 1(706)172-[address] [place], [place] [address]Muqomyqxob03-01-3138 10:50-0400Systolic blood pbmnvuhj787 mm[Hg]Robert Janes DO Work Phone: 1(428)202-[address] [place], [place] [address]Yktqxobttw56-22-7725 13:28-0400Body mass index (BMI) [Ratio]41.29 kg/m2[employer] Work Phone: [phone])254-[address] [place], [place] [address]Pmkogtgchj08-23-8861 13:28-0400Body qdeddk029.03 kgAmy Nazanin MILSL Work Phone: [phone])757-[address] [place], [place] [address]Hrpgweajye97-88-8379 13:28-0400Diastolic blood mm[Hg][employer] Work Phone: 1(279)886-[address] [place], [place] [address]Cejvivimsl33-52-8430 13:28-0400Systolic blood nmiaykcm140 mm[Hg][employer] Work Phone: [phone] [place], [place] [address]Acrpsgrvdl30-47-1847 11:32-0400Body mass index (BMI) [Ratio]40.51 kg/r5Wvxla Janes DO Work Phone: 1([phone])809-[address] [place], [place] [address]Crfsyyebeu00-11-2157 11:32-0400Body rejqog007.85 kgCorey Janes DO Work Phone: 1([phone])762-[address] [place], [place] [address]Tjsbpqznzu84-08-1001 11:32-0400Diastolic blood jtdjsjoh53 mm[Hg]Robert Janes DO Work Phone: 1(071)065-[address] [place], [place] [address]Suxvxopnhk22-03-1823 11:32-0400Systolic blood gfolbfdh480 mm[Hg]Robert Pearsono DO Work Phone: [facility] SystemPkrzweccdi93-98-1504 11:13-0400Body mass index (BMI) [Ratio]41.08 kg/i1Gkzgn Janes DO Work Phone: [facility] SystemCvbekfkpuz52-47-3963 11:13-0400Body pmkona561.44 kgCoredenia Pearsono DO Work Phone: 1(737)063-[address] [place], [place] [address]Vbpyfmmeku45-33-8162 11:13-0400Diastolic blood yhdczumv41 mm[Hg]Robertdenia Pearsono DO Work Phone: 1(720)768-[address] [place], [place] [address]Ovxpsjobhf35-12-1430 11:13-0400Systolic blood gjxnlfmo902 mm[Hg]Robert Pearsono DO Work Phone: [facility] SystemHlhdrbsdhl37-09-5878 15:53-0400Body mass index (BMI) [Ratio]41.8 kg/m2[facility]05-01-2025 15:53-0400Body weight 117.48 kgSaint [facility]05-01-2025 15:53-0400Diastolic blood pressure 84 mm[Hg][facility]05-01-2025 15:53-0400Systolic blood pressure 118 mm[Hg][facility]10-08-2024 11:48-0400Body mass index (BMI) [Ratio]43 kg/m2[employer] Work Phone: [facility] SystemRvqcfmbzdf48-00-7132 11:48-0400Body .84 kgNano MILLS Work Phone: [facility] SystemVtofohfwpf17-81-7020 11:48-0400Diastolic blood vitbwrkz56 mm[Hg][employer] Work Phone: [phone] SystemRivmdiwksc97-38-2720 11:48-0400Systolic blood hcncyyqa743 mm[Hg][employer] Work Phone: [facility] SystemApxdtfoayb71-06-2227 08:40-0400Body mass index (BMI) [Ratio]44.89 kg/x7Hwbvv Janes DO Work Phone: [facility] SystemSmfrultkwx44-86-9141 08:40-0400Body fnaynt184.14 kgCorey Janes DO Work Phone: [facility] SystemWqoeifstcr48-79-2573 08:40-0400Diastolic blood macnottr87 mm[Hg][employer] DO Work Phone: [facility] SystemAjxdceisjs40-39-5132 08:40-0400Systolic blood ezdsiecx407 mm[Hg]Robert [employer] DO Work Phone: [facility] SystemKskgipeckf62-72-6760 16:56-0400Body neixcm477.64 cmProm[facility]04-12-2022 16:56-0400Body mass index (BMI) [Percentile] Per age and sex98.9 %[facility]04-12-2022 16:56-0400Body mass index (BMI) [Ratio]44.3 kg/v6UybwarwzwPromedica Fostoria Community Hospital04-12-2022 16:56-0400Body dvfyljoqqpw36.3 [degF][facility]04-12-2022 16:56-0400Body .6 kgPromedica [facility] Hospital 07-18-2021 16:56-0400Diastolic blood olwmtuex352 mm[Hg][facility]04-12-2022 16:56-0400Heart rate80 /[facility]04-12-2022 16:56-0400Respiratory rate18 /[facility]04-12-2022 16:56-0400Systolic blood ccncgodo582 mm[Hg][facility]02-07-2022 19:47-0500Body .64 cmPromedica Fostoria [facility] Hospital02-07-2022 19:47-0500Body mass index (BMI) [Percentile] Per age and sex98.9 %[facility]02-07-2022 19:47-0500Body mass index (BMI) [Ratio]43.7 kg/v1NpjhyfhgnPromedica Fostoria Community Hospital02-07-2022 19:47-0500Body ksjixdssqln54.8 [degF][facility]02-07-2022 19:47-0500Body hjgydx269.95 kgPromedica Fostoria Community Hospital02-07-2022 19:47-0500Diastolic blood fchcqtor84 mm[Hg][facility] 05-15-2021 19:47-0500Heart rate75 /[facility] 05-15-2021 19:47-0500Respiratory rate16 /[facility] 05-15-2021 19:47-9670AaJ6% (BldA) [Mass fraction]100 %[facility]02-07-2022 19:47-0500Systolic blood xjrpgrqy422 mm[Hg][facility] Encounters Encounter DateEncounter TypeCare ProviderFacilityStart: 02-02-2025 End: 64-86-7998Iuveenshane MILLS Work Phone: noMS [facility] OBGYNStart: 02-02-2025 End: 92-63-2844Alptynshane MILLS Work Phone: noMS [place] OBGYNStart: 02-02-2025 End: 67-66-8882gikqfxwwcqEDC RAMEYNot AvailableStart: 02-02-2025 End: 89-40-0473Kyitjh outpatient visit 15 minutesNano MILLS Work Phone: noMS [facility] OBGYNComment on above:Third trimester ([facility]); 34 weeks gestation of ([facility])Start: 01-25-2025 End: 31-13-0651Idnvmlhmn Result EncounterCorey Janes DO Work Phone: noMS External Department UnsolicitedStart: 01-25-2025 End: 46-93-8461Hxjaabsrf Result EncounterCorey Janes DO Work Phone: noMS External Department UnsolicitedStart: 01-19-2025 End: 10-37-3712Txyqgx outpatient visit 15 minutesNano MILLS Work Phone: noMS [place] OBGYNComment on above:Third trimester ([facility]); 32 weeks gestation of ([facility]); Hematuria, unspecified typeStart: 01-19-2025 End: 81-33-2004fjsdijuysuPAI RAMEYNot AvailableStart: 01-04-2025 End: 18-21-3846Msorsv Lara Samuels NP Work Phone: [facility] OBGYNStart: 01-04-2025 End: 73-61-2378Okglsi Lara Samuels NP Work Phone: [facility]BGYNStart: 01-04-2025 End: 92-70-6096iknqixhgnbZOBEVLAI EBERLYNot AvailableStart: 01-04-2025 End: 47-51-9281Ckzafy outpatient visit 15 minutesMag Samuels NP Work Phone: [facility] [place] OBGYNComment on above: size inconsistent with dates ([facility]) (Primary Dx); 30 weeks gestation of ([facility]); Third trimester ([facility]); History of miscarriage; Bipolar 1 disorder, depressed ([facility]); Anxiety, generalizedStart: 12-21-2024 End: 78-96-7200Lxsxwa Caio MILLS Work Phone: [facility] [place] [facility]BGYNStart: 12-21-2024 End: 51-37-9850Cutmwb Caio MILLS Work Phone: [facility] [place] [facility]YNStart: 12-21-2024 End: 80-04-4233Bmnpns outpatient visit 15 minutesNano MILLS Work Phone: NOMS Adonis OBGYNComment on above:Third trimester ([facility]); 28 weeks gestation of ([facility])Start: 12-21-2024 End: 43-43-1666gxdbyekdgqPPJ RAMEYNot AvailableStart: 33-46-6759Glhyeyufe department patient visitCOREY FAZIOFacility:[facility] HospitalStart: 12-13-2024 End: 05-08-9729Hfgkch-up encounterChelsea Matias PRECISION LENS GRINDER APPRENTICE-CNM Work Phone: ProCleveland Clinic Medina HospitalRPComment on above:Urine Culture Urine, Clean Catch Midstream, Vaginitis Panel PCR, Chlamydia/GC by PCR Tea SwabStart: 12-11-2024 End: 96-04-9921Muguenocb encounterMontserrat Chaitanya MCGREGOR [place] [facility] Start: 12-10-2024 End: 87-63-3799oamueppiicCLMPMVC [facility] HospitalStart: 12-10-2024 End: 15-14-7964cxcactupceCurezm Y WeiningerFacility:[facility] HospitalStart: 12-09-2024 End: 82-21-3889Ifeyzfvqk Result EncounterCorey Janes DO Work Phone: noms External Department UnsolicitedStart: 12-09-2024 End: 79-05-4291Dkfysckus Result EncounterCorey Janes DO Work Phone: noms External Department UnsolicitedStart: 11-23-2024 End: 61-25-4541Hhdojc outpatient visit 15 minutesCorey Janes DO Work Phone: noms Adonis OBGYNComment on above:24 weeks gestation of ([facility]); Second trimester ([facility]); History of miscarriage; Diabetes mellitus screening; Urinary tract infection with hematuria, site unspecified; Episode of recurrent major depressive disorder, unspecified depression episode severity ; Bipolar 1 disorder, depressed ([facility]); Anxiety, generalized ; PTSD (post-traumatic stress disorder)Start: 11-23-2024 End: 36-05-1856mpozkypdjpENXWS FAZIONot AvailableStart: 11-19-2024 End: 70-84-6269Hezwjfylb Result EncounterCorey Janes DO Work Phone: noms External Department UnsolicitedStart: 11-19-2024 End: 94-52-0545Tfngffrwi Result EncounterCorey Janes DO Work Phone: noms External Department UnsolicitedStart: 10-28-2024 End: 28-51-4402Zuvxodzte Result EncounterCorey Janes DO Work Phone: noms External Department UnsolicitedStart: 10-28-2024 End: 55-35-2557Argmodpjm Result EncounterCorey Janes DO Work Phone: noms External Department UnsolicitedStart: 10-27-2024 End: 35-85-9253Varukneak Result EncounterCorey Janes DO Work Phone: noms External Department UnsolicitedStart: 10-27-2024 End: 95-85-7943Hpabrphrm Result EncounterCorey Janes DO Work Phone: noms External Department UnsolicitedStart: 10-26-2024 End: 24-28-0197Scwgwuoxi Result EncounterCorey Janes DO Work Phone: noms External Department UnsolicitedStart: 10-26-2024 End: 05-40-5151Ipfcqelfy Result EncounterCorey Janes DO Work Phone: noms External Department UnsolicitedStart: 10-26-2024 End: 66-46-9532Ddbnph outpatient visit 15 minutesAmy Nazanin MILLS Work Phone: noms BCP OBComment on above:20 weeks gestation of ([facility]); Second trimester ([facility])Start: 10-26-2024 End: 02-24-5619qnwdpszqbpHSE Bindu AvailableStart: 10-26-2024 End: 60-83-6274eccywsoxmuEMGHI FAZIONot AvailableStart: 10-15-2024 End: 85-26-9164Erboifkja department patient visitCOMMUNITY HEALTH SERVICES [facility] Hospitaltart: 10-05-2024 End: 01-34-1439Iubwnm flowsheetCorey Janes DO Work Phone: noms BCP OBStart: 10-05-2024 End: 77-07-3826Roqpzm flowsheetCorey Janes DO Work Phone: noms BCP OBStart: 10-05-2024 End: 06-87-1538Oofbbxpue Result EncounterCorey Janes DO Work Phone: NOMS External Department UnsolicitedStart: 10-05-2024 End: 50-04-0266Xifeayls Result EncounterCorey Janes DO Work Phone: noMS External Department UnsolicitedStart: 10-05-2024 End: 78-63-5515qeiznyjvmdSGKCX FAZIONot AvailableStart: 10-05-2024 End: 14-92-7906Smjpov outpatient visit 15 minutesCorey Janes DO Work Phone: noMS [facility] OBComment on above:Second trimester ([facility]); 17 weeks gestation of ([facility]); Well woman exam with routine gynecological exam; Exposure to STD; Need for maternal serum alpha-protein (MSAFP) screening ([facility]); Screening, , for anatomic survey ([facility]); SOB (shortness of breath); DizzinessStart: 10-05-2024 End: 57-15-4549Nlrmujj encounter procedureCorey Janes DO Work Phone: noMS HealthcareStart: 26-55-0479nztbkbcesfWG-C Bryan W. RauchFacility:[facility] Ohiotart: 09-07-2024 End: 66-67-0473Xharxj flowsheetCorey Janes DO Work Phone: NOMS BCP OBStart: 09-07-2024 End: 79-28-3585Dgfsuq flowsheetCorey Janes DO Work Phone: NOMS BCP OBStart: 09-07-2024 End: 14-56-8793Nifcwurnj Result EncounterCorey Janes DO Work Phone: noMS External Department UnsolicitedStart: 09-07-2024 End: 52-55-0980nmfetvxoraKDATW FAZIONot AvailableStart: 09-07-2024 End: 99-26-3603Nxeven outpatient visit 15 minutesCorey Janes DO Work Phone: noms BCP OBComment on above:Constipation, unspecified constipation type (Primary Dx); First trimester ; 13 weeks gestation of ; Nausea and vomiting in pregnancyStart: 08-18-2024 End: 41-63-5143Usnmxkdlx Result EncounterCorey Janes DO Work Phone: noms External Department UnsolicitedStart: 08-18-2024 End: 32-81-7884Krmzamnxz Result EncounterCorey Janes DO Work Phone: noms External Department UnsolicitedStart: 08-11-2024 Emergency department patient visitCOREY FAZIOFacility:[facility] HospitalStart: 08-06-2024 End: 32-45-6143Tarkbn outpatient visit 5 minutesNoms Bcp Ob Janes NurseNOMS BCP OBComment on above:GA: 2e0qKggwv: 08-06-2024 End: 96-57-6678vctwpddyxjIUPSI FAZIONot AvailableStart: 08-03-2024 End: 60-77-3052Vclbjvovn department patient visitCOMMUNITY HEALTH SERVICES [facility] HospitalStart: 07-20-2024 End: 83-05-3419Ykyfksphp department patient visitCOMMUNITY HEALTH SERVICES [facility] HospitalStart: 07-03-2024 End: 37-91-2466Cicnijcpf Result EncounterCorey Janes DO Work Phone: noms External Department UnsolicitedStart: 07-03-2024 End: 14-09-5379Dfcnaepml Result EncounterCorey Janes DO Work Phone: noms External Department UnsolicitedStart: 07-01-2024 End: 07-21-1930Rvcprlvfv Result EncounterCorey Janes DO Work Phone: noms External Department UnsolicitedStart: 07-01-2024 End: 65-28-0246Obfjepvfe Result EncounterCorey Janes DO Work Phone: noms External Department UnsolicitedStart: 06-07-2024 Emergency department patient visitNone ProviderFacility:[facility] HospitalStart: 01-31-9400rxotxerycgBXMPI R FAZIOFacility:[facility] HospitalStart: 06-01-2024 End: 37-99-5486yruitbfucgOduc ProviderFacility:[facility] HospitalStart: 05-30-2024 End: 97-39-6549Vjycplwcm department patient visitUNC [facility] HospitalStart: 05-17-2024 End: 08-30-2487Iamwnxtax Result EncounterCorey Janes DO Work Phone: noms External Department UnsolicitedStart: 05-17-2024 End: 40-90-0634Xytnaohfl Result EncounterCorey Janes DO Work Phone: noms External Department UnsolicitedStart: 05-15-2024 End: 80-48-3663Hhfpjphak Result EncounterCorey Janes DO Work Phone: noms External Department UnsolicitedStart: 05-15-2024 End: 01-65-6988Lajsaxhew Result EncounterCorey Janes DO Work Phone: noms External Department UnsolicitedStart: 05-01-2024 End: 65-84-7002Giuubzmzj department patient visitMid Dakota Medical Centertart: 04-22-2024 End: 09-73-3952Xicyewzac department patient visitSan[facility] HospitalStart: 22-30-7240Rrujvnbvb department patient visit Unlisted ProviderFacility:[facility] HospitalStart: 55-84-0867Qxzlrevaj department patient visitCOREY R FAZIOFacility:[facility] HospitalStart: 01-28-2024 End: 13-89-7757rskmgvkgihSinbty N Hayes PACFacility:[facility] Ohiotart: 01-14-2024 End: 68-06-8542Pdtvzq flowsheetNano MILLS Work Phone: noms BCP OBStart: 01-14-2024 End: 95-98-1140Tvhhwu flowsheetNano MILLS Work Phone: NOMS BCP OBStart: 01-14-2024 End: 57-18-6108Lszfxpsulu care visitNano MILLS Work Phone: NOMS BCP OBComment on above:6 weeks follow-upStart: 12-06-2023 End: 17-80-2134Xoxhcylcp Result EncounterCorey Janes DO Work Phone: NOMS External Department UnsolicitedStart: 12-06-2023 End: 33-20-7672Bgswggrms Result EncounterCorey Janes DO Work Phone: NOMS External Department UnsolicitedStart: 12-04-2023 End: 37-74-1694Apylydxek Result EncounterCorey Janes DO Work Phone: NOMS External Department UnsolicitedStart: 12-04-2023 End: 01-09-1066Czvwyrefv Result EncounterCorey Janes DO Work Phone: NOMS External Department UnsolicitedStart: 11-28-2023 End: 65-44-5868Ycgufz flowsheetCorey Janes DO Work Phone: NOMS BCP OBStart: 11-28-2023 End: 55-65-2227Tqdveo flowsheetCorey Janes DO Work Phone: NOMS BCP OBStart: 11-28-2023 End: 47-82-1279Opdogf outpatient visit 15 minutesCorey Janes DO Work Phone: NOMS BCP OBComment on above:Third trimester ; 38 weeks gestation of pregnancyStart: 11-25-2023 End: 16-46-4583Rfxgsarfy Result EncounterCorey Janes DO Work Phone: NOMS External Department UnsolicitedStart: 11-25-2023 End: 71-16-3106Uhgbcebak Result EncounterCorey Janes DO Work Phone: NOMS External Department UnsolicitedStart: 10-01-2023 End: 05-35-7956Irtowjvki Result EncounterCorey Janes DO Work Phone: NOJJ External Department UnsolicitedStart: 10-01-2023 End: 24-95-0118Dlsvwizmt Result EncounterCorey Janes DO Work Phone: NOLQ External Department UnsolicitedStart: 09-10-2023 End: 20-65-5153Fsicoohwu Result EncounterCorey Janes DO Work Phone: NOLG External Department UnsolicitedStart: 09-10-2023 End: 19-23-0036Rmipmveop Result EncounterCorey Janes DO Work Phone: NOKS External Department UnsolicitedStart: 08-28-2023 End: 71-65-6291Mriiylcbk Result EncounterCorey Janes DO Work Phone: NOAE External Department UnsolicitedStart: 08-28-2023 End: 85-02-3405Dvmxchsfx Result EncounterCorey Janes DO Work Phone: NOSC External Department UnsolicitedStart: 07-31-2023 End: 59-28-1777Khvnalzfd Result EncounterCorey Janes DO Work Phone: NOOH External Department UnsolicitedStart: 07-31-2023 End: 38-91-0265Chhssyngu Result EncounterCorey Janes DO Work Phone: NOYB External Department UnsolicitedStart: 05-17-2023 Clinisync Result EncounterCorey Janes DO Work Phone: NOLZ External Department UnsolicitedStart: 05-17-2023 Clinisync Result EncounterCorey Janes DO Work Phone: NOQW External Department UnsolicitedStart: 05-14-2023 Chart abstractingCorey Janes DO Work Phone: NOZV BCP OBStart: 98-33-5382Gcaqasjgfdgda procedure Leah Cantu [facility] Certified Nurse [employer] Technician - [place] Start: 05-02-2023 End: 87-67-5060Ugjpbxxle Result EncounterCorey Janes DO Work Phone: noms External Department UnsolicitedStart: 05-02-2023 End: 06-62-1710Mantidciu Result EncounterCorey Janes DO Work Phone: noms External Department UnsolicitedStart: 04-19-2023 Telephone encounterLynik Hernandez RNEast [facility] Certified Nurse Cook Chill Technician - [place]: 37-13-5013Tplgvllyd encounterLynik Hernandez RNBay [place] [facility] Certified Nurse Cook Chill Technician - [place]: 04-05-2023 Orders OnlyLeah Hernandez RNBay [place] [facility] Certified Nurse Cook Chill Technician - [place]Comment on above:Nausea and vomiting during (Primary Dx) Start: 08-08-2022 End: 40-13-3699cwxwbfjieiPP BALDOMERO ELLER .Facility:N9Kerng: 06-02-2022 End: 88-90-1235pizaoaxglsNR BALDOMERO ELLER .Facility:Z2Hnvtm: 05-18-2022 Encounter for other preprocedural examinationDR BALDOMERO ELLER .[facility]: 05-17-2022 End: 60-58-9689rulatysxlkTT BALDOMERO ELLER .Facility:R1Eknih: 05-16-2022 End: 92-24-7782mbjvaymowhUM BALDOMERO ELLER .Facility:Y1Truve: 05-16-2022 End: 79-24-1220Lzftvwirl for other preprocedural examinationDR BALDOMERO ELLER . Facility:A6Jbrpm: 05-16-2022 End: 12-00-0224iddihjvipoCK BALDOMERO ELLER .Facility:S8Shsuw: 04-19-2022 End: 54-75-6415nhomsokqzbPE BALDOMERO ELLER .Facility:A8Adeuq: 04-02-2022 End: 19-72-9018waajyjtbigTK ANA Dennis ESKDALEFacility:Z2Zkjve: 98-80-7313reheinlqjgLake Norman Regional Medical CenterFacility:C2Edvij: 03-28-2022 End: 03-66-0825vjvnfrttbtLC GREGORY KARASIK .Facility:D8Rydgc: 10-17-2021 End: 12-17-3590btlgicdavgMV GREGORY KARASIK .Facility:E0Gxkpl: 10-12-2021 End: 63-16-7552tjkwzstupbHU GREGORY KARASIK .Facility:A3Ymari: 07-18-2021 End: 98-02-2073Mopyqnrtt department patient visitGreen [facility] Hospital- Emergency RoomStart: 05-15-2021 End: 01-09-2701Tyeymzgsg department patient visitGreen Cross Hospital- Emergency Room Procedures DateProcedureProcedure DetailPerforming ClinicianStart: 23-11-5204Iozek dip stick/tablet rgnt non-auto w/o micrscpAmy Nazanin MILLS Work Phone: Start: 57-42-7270QWE UA (CLEAN/CATCH) BOOM TENDER/MICRO IF IND.Robert Janes DO Work Phone: Start: 88-32-3466QGG URINE MICROSCOPIC ONLYCorey Janes DO Work Phone: Start: 81-50-7496Kcgsk dip stick/tablet rgnt non-auto w/o micrscpAmy Nazanin MILLS Work Phone: Start: 17-70-1459Zkckr dip stick/tablet rgnt non-auto w/o micrscpKristina Abril BRICK DROPPER Work Phone: Start: 01-40-1602Dpaiz dip stick/tablet rgnt non-auto w/o micrscpAmy Nazanin MILLS Work Phone: Start: 36-94-3074SAF CBC WITH AUTO DIFFCorey Janes DO Work Phone: Start: 33-74-5547Exocv dip stick/tablet rgnt non-auto w/o micrscpCorey Janes DO Work Phone: Start: 02-07-1244EXU UA (CLEAN/CATCH) BOOM TENDER/MICRO IF IND.Robert Janes DO Work Phone: Start: 24-93-7004EO ECHO DOPPLER COMPLETECorey Janes DO Work Phone: Start: 33-95-1828SZD 12-LEADCorey Janes DO Work Phone: Start: 00-13-6810Nravm dip stick/tablet rgnt non-auto w/o micrscpAmy Nazanin MILLS Work Phone: Start: 99-00-6170NRC, SERUM, OPEN SPINA BIFIDACorey Janes DO Work Phone: Start: 90-35-0282GPJRKODJV VAGINITIS (HTRX)Robert Janes DO Work Phone: Start: 14-56-1765Sadce dip stick/tablet rgnt non-auto w/o micrscpCorey Janes DO Work Phone: Start: 36-66-6023VSF,APTIMA HPV,AGE GDLNCorey Janes DO Work Phone: Start: 72-84-0532Uiigiwvcqij observation [Identifier] in Cervix by Cyto Telly DELGADO Work Phone: Start: 92-89-6828LUY RUBELLA IGG ABCorey Janes DO Work Phone: Start: 25-49-5865VSN ANTIBODY RFX TO QUANT PCRCorey Janes DO Work Phone: Start: 11-91-3995Smujo dip stick/tablet rgnt non-auto w/o micrscpCorey Janes DO Work Phone: Start: 01-56-4465SPF TESTCorey Janes DO Work Phone: Start: 08-06-2024 End: 52-24-5167Wgeil dip stick/tablet rgnt non-auto w/o micrscpCorey Janes DO Work Phone: Start: 57-96-2774SSQ PREG QUANT HCGCorey Janes DO Work Phone: Start: 06-58-6729BFF PREG QUANT HCGCorey Janes DO Work Phone: Start: 15-54-9989GTY PREG QUANT HCGCorey Janes DO Work Phone: Start: 94-39-1933THM PREG QUANT HCGCorey Janes DO Work Phone: Start: 19-58-8114DMP CBC WITH AUTO DIFFCorey Janes DO Work Phone: Start: 88-77-1694XQVZ CBC WITH PLATELET NO DIFFERENTIALCorey Janes DO Work Phone: Start: 54-42-0839SG OB GROWTHCorey Janes DO Work Phone: Start: 77-71-6117ES OB GROWTHCorey Janes DO Work Phone: Start: 49-34-5867QQ OB CERVICAL LENGTHCorey Janes DO Work Phone: Start: 28-47-3103IZ for multiple gestation limitedCorey Janes DO Work Phone: Start: 35-64-2135KC OB ANATOMYCorey Janes DO Work Phone: Start: 65-88-7162ED OB CERVICAL LENGTHCorey Janes DO Work Phone: Start: 13-13-5834Eugm cerv/vag auto thin layer prep mnl screenAmy Nazanin MILLS Work Phone: Start: 34-17-0906BGE CBC WITH AUTO DIFFCorey Janes DO Work Phone: Start: 42-22-7651DG OB TRANSVAGINALCorey Janes DO Work Phone: Start: 74-20-1517J-ray of right knee Plan of Treatment DateCare ActivityDetailAuthorStart: 89-82-5878CMnW,Tdap and Td Vaccines (2 - Td or Tdap)DTaP,Tdap and Td Vaccines (2 - Td or Tdap)[place] SystemStart: 19-22-3007Tkeiufdyd for malignant neoplasm of cervixPap SmearProCity Hospitalca [facility] SystemStart: 01-72-0302Gegaouoxv for Chlamydia trachomatisChlamydia Screening ProMKittson Memorial Hospital SystemStart: 89-79-9293Erucn BMI ScreeningAdult BMI Screening [place] SystemStart: 67-13-6370Fgkgrfg ScreeningTobacco Screening [place] SystemStart: 06-10-2025 End: 63-79-9933xsjakraqnj50/05/2026 1:00 PM EST Initial [facility] [address] [place] [id number] NOMS BCP OBStart: 06-10-2025 End: 61-62-6974Girhvpufeqwy / ancillary services khqoofjzmq95/05/2026 12:30 PM EST Ancillary Procedure [facility] OB [address] [place], [place] [phone] NOMS BCP OBStart: 02-17-2025 End: 67-03-8386Icigwci encounter vudqbierl79/12/2025 1:00 PM EST Routine [facility] OBGYN [address] [place], [id number] Robert Marrero DO [address] [place] [address] NOMKaci [place] OBGYNStart: 02-02-2025 End: 92-97-5460Dpwgsxw encounter /28/2025 10:20 AM EDT Routine NOM[facility] Adon[facility] LANDRYGYN [address] [place] [phone] Nano Back PA [address] [place] [address] NOMKaci [place] OBGYNStart: 01-04-2025 End: 91-80-8390BW for pregnancyUS OB follow up transabdominal approach Imaging Routine size inconsistent with dates ([facility]) Expected: 01/04/2025, Expires: 05/06/2025NOSaint [facility] Work Phone: comment on above:Expected: 01/04/2025, Expires: 05/06/2025Start: 01-04-2025 End: 96-22-5169Oecnkpo encounter ckydoepyl89/29/2025 9:30 AM EDT Routine NOMKaci [place] OBGYN [address] [facility] [address] [place], [id number] Mag Samuels, BRICK DROPPER [address] [facility] [place] [address] NOMS Adonis OBGYNStart: 12-21-2024 End: 18-70-4852Frxzhzt encounter procedureNOAL Adonis OBGYNComment on above: ArrivedStart: 76-26-3681RNJAF-19 Vaccine ( season)COVID-19 Vaccine ( season)[facility] HealthcareStart: 52-55-6871Guwoqkmdn vaccinationKANE COUNTY HUM[facility] RESOURCE SSD HealthcareStart: 11-23-2024 End: 46-88-1985OKE panel - Blood by Automated countCBC Lab Routine Diabetes mellitus screening Expected: 11/23/2024 (Approximate), Expires: 11/23/2025[facility] Work Phone: comment on above:Expected: 11/23/2024 (Approximate), Expires: 11/23/2025Start: 11-23-2024 End: 76-72-9885Xgsiwwyegwi of glucose 1 hour after glucose challenge for glucose tolerance testGlucose tolerance, 1 hour Lab Routine Diabetes mellitus screening Expected: 11/23/2024 (Approximate), Expires: 11/23/2025NOAL HealthcareComment on above:Expected: 11/23/2024 (Approximate), Expires: 11/23/2025Start: 11-23-2024 End: 63-18-9811Qhtpcyf encounter procedureNOAL BCP OBStart: 11-23-2024 End: 90-38-9144Bktamhckqgyp / ancillary services aaxgbtndrn33/18/2025 10:30 AM EDT Ancillary Procedure [facility] [address] [facility] [place] [address] DLBY Adonis OBGYNStart: 10-26-2024 End: 07-92-5685Xislnpezywmt / ancillary services dqvqvfocfr19/21/2025 11:00 AM EDT Ancillary Procedure [facility] [address] [facility] [address] [place] [address] NOMS BCP OBStart: 10-19-2024 End: 20-38-6896Mbrzwau encounter atllroqda74/14/2025 9:00 AM EDT Routine [facility] OB [address] [facility] [place] [phone] Robert Marrero, DO [address] [place] [address] NOMS BCP OBStart: 10-05-2024 End: lead ECGECG 12 lead unit performed ECG Routine SOB (shortness of breath) Dizziness Expected: 10/05/2024 (Approximate), Expires: 10/05/2025[facility] Work Phone: comment on above:Expected: 10/05/2024 (Approximate), Expires: 10/05/2025Start: 10-05-2024 End: 39-71-2080Zzfdi fetoprotein, maternalAlpha fetoprotein, maternal Lab Routine Need for maternal serum alpha-protein (MSAFP) screening ([facility]) Expected: 10/05/2024 (Approximate), Expires: 11/04/2024[facility] SystemComment on above:Expected: 10/05/2024 (Approximate), Expires: 11/04/2024Start: 10-05-2024 End: 88-10-0948Yfxgtfqkqfiche 2D completeEchocardiogram 2D complete Echocardiography Routine SOB (shortness of breath) Dizziness Expected: (Approximate), Expires: 10/05/2026NOMS HealthcareComment on above: Expected: 10/05/2024 (Approximate), Expires: 10/05/2026Start: 10-05-2024 End: 18-87-6922FM for pregnancyUS OB 14+ weeks anatomy scan Imaging Routine Screening, , for anatomic survey ([facility]) Expected: 10/05/2024, Expires: 01/05/2025NOAL HealthcareComment on above:Expected: 10/05/2024, Expires: 01/05/2025Start: 10-05-2024 End: 27-22-3722Ugdifen encounter dvlunjtfj57/30/2025 11:10 AM EDT Routine [facility] OB [address] [facility] [place] [phone] Robert Marrero, [address] [place] [address] NOMS BCP OBStart: 09-07-2024 End: 83-98-2548Aqsalot encounter opvsphxxd85/02/2025 10:50 AM EDT Routine [facility] OB [address] [facility] [place] [address] Robert Marrero, [address] [place] [address] NOMS BCP OBStart: 08-06-2024 End: 05-98-0178NLP/RhABO/Rh Lab Routine Missed menses , unspecified gestational age Expected: 08/06/2024 (Approximate), Expires: 08/06/2025NOAL HealthcareComment on above:Expected: 08/06/2024 (Approximate), Expires: 08/06/2025Start: 08-06-2024 End: 23-40-5510Gelxo type and Indirect antibody screen panel - BloodType and screen Lab Routine Missed menses , unspecified gestational age Expected: 08/06/2024 (Approximate), Expires: 08/06/2025NOAL HealthcareComment on above:Expected: 08/06/2024 (Approximate), Expires: 08/06/2025Start: 08-06-2024 End: 23-81-0211Yuslx of abuse panel - Urine by Screen methodRapid drug screen, urine Lab Routine , unspecified gestational age Encounter for supervision of normal first in first trimester Expected: 08/06/2024 (Approximate), Expires: 08/06/2025NOMS HealthcareComment on above:Expected: 08/06/2024 (Approximate), Expires: 08/06/2025Start: 07-31-2024 End: 91-93-0785YA Pelvis transvaginalUS OB transvaginal Imaging Routine Missed menses Expected: 07/31/2024, Expires: 10/30/2024N[facility] Work Phone: comment on above:Expected: 07/31/2024, Expires: 10/30/2024Start: 90-92-3016Qmoad BMI ScreeningAdult BMI ScreeningProTogus Va Medical Center SystemStart: 05-84-8556Urvqgej ScreeningTobacco ScreeningProTogus Va Medical Center SystemStart: 01-14-2024 End: 74-56-5424Nhhuaas encounter nzijczymn74/08/2024 11:30 AM EDT Office Visit [facility] OB [address] [facility] [place] [phone] Nano Back PA [address] [facility] [place] [address] [facility]rivedENCINO [facility] OBComment on above:ArrivedStart: 12-08-2023 Influenza vaccinationInfluenza Vaccine (#1)NOMS HealthcareStart: 11-28-2023 End: 72-60-5960Vwaukyv encounter nbanivzjz46/22/2024 8:30 AM EDT Routine [facility] OB [address] [place] [phone] Robert Marrero DO [address] [place] [address] ArrivedENCINO [facility] OBComment on above: ArrivedStart: 89-52-1990Scaxiodjp for Chlamydia trachomatisChlamydia Screening [facility]/NHRMCtart: 06-03-2023 End: 53-83-8505Nmwrraw encounter nlvurjojs27/26/2024 2:10 PM EST Routine [facility] BCP OB [address] [place] [address] Robert Marrero, DO [address] [facility] [place] [address] NOMS BCP OBStart: 04-17-2023 End: 79-03-2599cuigkykrsi62/10/2024 8:30 AM EST Initial [facility] Certified Nurse Cook Chill Technician - [place] [address] [facility] [address] [place] [address] [place] [facility] Certified Nurse Cook Chill Technician - [place]Start: 65-55-8087Ojmvmahrj vaccinationInfluenza VaccineCenterville SystemStart: 30-35-9121Mhbbzydrj for malignant neoplasm of cervixPap SmearNovant Health/NHRMCtart: 68-42-0921Y-ray of left ankleXR ankle LT min 3V*[facility]: 60-23-3858S-ray of left footXR foot LT min 3V*[facility]: 2020 Hepatitis B Vaccines (1 of 3 - 19+ 3-dose series)Hepatitis B Vaccines (1 of 3 - 19+ 3-dose series)[facility] HealthcareStart: 16-00-4332Disdehauoikf Vaccine: Pediatrics (0 to 5 Years) and At-Risk Patients (6 to 64 Years) (1 of 2 - PCV) Pneumococcal Vaccine: Pediatrics (0 to 5 Years) and At-Risk Patients (6 to 64 Years) (1 of 2 - PCV)[facility] HealthcareStart: 51-54-4975Ncdcz BMI Follow Up Plan Adult BMI Follow Up PlanNovant Health/NHRMCtart: 35-69-5633Edjcumehotkkm B Vaccine (1 of 2 - Standard)Meningococcal B Vaccine (1 of 2 - Standard)[facility] HealthcareStart: 34-02-9014OTJ Vaccines (1 - 3-dose series)HPV Vaccines (1 - 3- dose series)[facility] HealthcareStart: 33-97-6514Ylwfwiz of varicella vaccination Varicella Vaccines (1 of 2 - 13+ 2-dose series)[facility] HealthcareStart: 2013 Depression ScreeningDepression ScreeningNovant Health/NHRMCtart: 2008 DTaP/Tdap/Td Vaccines (1 - Tdap)DTaP/Tdap/Td Vaccines (1 - Tdap)[facility] Start: 38-48-9659OBN Vaccines (1 of 1 - Standard series)MMR Vaccines (1 of 1 - Standard series)[facility] SystemBacteria identified in Urine by CultureUrine culture Microbiology Routine Missed menses Ordered: 08/06/2024[facility] Comment on above:Ordered: 08/06/2024acteria identified in Urine by CultureUrine culture Microbiology Routine Urinary tract infection with hematuria, site unspecified Ordered: 11/23/2024[facility] HealthcareComment on above:Ordered: 11/23/2024acteria identified in Urine by CultureUrine culture Microbiology Routine Hematuria, unspecified type Ordered: 01/19/2025[facility] Work Phone: comment on above:Ordered: 01/19/2025BC W Auto Differential panel - BloodCBC and differential Lab Routine Missed menses , unspecified gestational age Ordered: 08/06/2024[facility] HealthcareComment on above:Ordered: 08/06/2024HLAMYDIA TRACHOMATIS (GENITO/STI)CHLAMYDIA TRACHOMATIS (GENITO/STI) Lab Routine Exposure to STD Ordered: 10/05/2024[facility] HealthcareComment on above:Ordered: 10/05/2024ytology Cervical or vaginal smear or scraping studyPap Smear Pathology and Cytology Routine Well woman exam with routine gynecological exam Ordered: 10/05/2024[facility] HealthcareComment on above: Ordered: 10/05/2024Hemoglobin A1c/Hemoglobin.total in BloodHemoglobin A1c Lab Routine Missed menses , unspecified gestational age Ordered: 08/06/2024 [facility] HealthcareComment on above:Ordered: 08/06/2024Hepatitis B virus surface Ag [Presence] in Serum or Plasma by ImmunoassayHepatitis B surface antigen Lab Routine Missed menses , unspecified gestational age Ordered: 08/06/2024 [facility] HealthcareComment on above:Ordered: 08/06/2024Hepatitis C virus Ab [Presence] in Serum or Plasma by ImmunoassayHepatitis C antibody Lab Routine Missed menses , unspecified gestational age Ordered: 08/06/2024[facility] HealthcareComment on above:Ordered: 08/06/2024HIV-1/HIV-2 antigen/antibody combination immunoassayHIV-1 and HIV-2 antibodies Lab Routine Missed menses , unspecified gestational age Ordered: 08/06/2024[facility] HealthcareComment on above:Ordered: 08/06/2024Neisseria gonorrhoeae DNA [Presence] in Unspecified specimen by MILY with probe detectionNeisseria gonorrhea DNA probe, direct Lab Routine Exposure to STD Ordered: 10/05/2024[facility] HealthcareComment on above: Ordered: 10/05/2024[facility] EducationBl[facility] Work Phone: Patient referralBlanchard Valley Health [facility] Work Phone: Reagin Ab [Presence] in Serum by RPRRPR Lab Routine Missed menses , unspecified gestational age Ordered: 08/06/2024[facility] HealthcareComment on above:Ordered: 08/06/2024Rubella antibody, IgGRubella antibody, IgG Lab Routine Missed menses , unspecified gestational age Ordered: 08/06/2024[facility] HealthcareComment on above:Ordered: 08/06/2024 SURESWAB(R) ADVANCED VAGINITIS PLUS, TMASURESWAB(R) ADVANCED VAGINITIS PLUS, TMA Pathology and Cytology Routine Exposure to STD Ordered: 10/05/2024[facility] Work Phone: comment on above:Ordered: 10/05/2024US Pelvis transvaginalUS OB transvaginal Imaging Routine Missed menses 08/06/2024 1:[address] [facility] Healthcare Payers DatePayer CategoryPayerPolicy [id number] (Managed Care)[facility] [id number] 2003Medicaid [id number] 2003Medicaid [facility] [place] on file Erdqfna: [address] [place] [id number] [id number] 2..1.054312.3.57[id number] 2..1.918973.3.57[id number] 2..1.801534.3.57[id number] 2..1.850570.3.57[id number] 2..1.927621.3.57[id number] 2..1.824529.3.579.[id number] 2..1.690395.3.57[id number] 2.16.840.1.972079.3.57[id number] 2.16.840.1.530424.3.57[id number] 2.16.840.1.864761.3.57[id number] 2.16.840.1.441553.3.57[id number] 2.16840.1.421844.3.57[id number] 2.16840.1.349610.3.57[id number] 2.16840.1.211131.3.579.[id number] 2.16840.1.149288.3.57[id number] 2.840.1.742076.3.57[id number] 2.16840.1.688048.3.57[id number] 2.840.1.557486.3.579.2.[id number] 2.16840.1.330792.3.57[id number] 2.16840.1.554210.3.57[id number] 2.16.840.1.227310.3.57[id number] 2.16840.1.137773.3.57[id number] 2.16.840.1.462737.3.579.2.41673-71-6426Wdntper87876303 2.16.840.1.275086.3.579.2.43401-20-6286Rgqicfz84566817 2.16840.1.556172.3.579.2.78886-45-0673Jcgprty15475780 2.16840.1.797554.3.579.[id number] 2.840.1.047663.3.57[id number] 2.0.1.352478.3.579.2.70976-12-6639Jqbmwwd38180510 2.840.1.430628.3.579.2.124825-50-0756Pgnieqr07514787 2.840.1.135835.3.579.2.[id number] 2.840.1.728723.3.579.2.7[id number] 2.0.1.966783.3.579.2.707806-33-8158Wmvosrn38766099 2.840.1.223484.3.579.2.857108-58-4850Zsxfgon19884565 2.840.1.775507.3.57[id number] 2.840.1.702121.3.579.2.[id number] 2.840.1.718615.3.579.2.[id number] 2.16.840.1.370147.3.579.2.949005-19-4658Orbowal48754113 2.16.840.1.322767.3.579.2.545126-11-1915Ccspilt3856203 2.16.840.1.361987.3.579.2.887837-00-0741Gnfkkvy0583013 2.16.840.1.142952.3.579.2.678791-84-3590Kjkahsw9908259 2.16.840.1.621059.3.579.2.261224-05-4404Srbytid151744574290 3i5b4s58-uq94-1720-a1x8-776uebj6m1l4Evmw-nacQpyl Pay [id number] Social History DateTypeDetailFacilityStart: 07-18-2021 End: 82-83-7790Rczrlaj smoking status NHISNever smoked tobacco (finding) [facility]: 14-70-5427Ijd Assigned At BirthFemassena memorial hospitale [facility] Hospitaltart: 05-14-2023 End: 61-24-5795Aiqtukr intakeLifetime non-drinker (finding)[facility] HealthcareStart: 64-43-5837CvxcakxroDMKO HealthcareStart: 71-68-7615Eodzrx identityIdentifies as female gender (finding)[facility] HealthcareStart: 43-58-4353Kqnswb orientation Heterosexual (finding)[facility] HealthcareStart: 05-14-2023 End: 62-38-4688Kqhjvsu of Social functionNOMS HealthcareStart: 05-14-2023 End: 82-63-2067Cwfarjm use panelCenterville SystemStart: 08-01-2022 End: 26-04-2651Tbgwdyb use and exposureSmokeless tobacco non-userCenterville SystemStart: 01-03-2024 End: 11-95-4202Jfxpsauap beverage intakeEx-drinker (finding)[facility] SystemHistory of tobacco usePassive smokerCenterville SystemStart: 73-10-6896Rlxftkp InstabilityUnknownPOhioHealth Hardin Memorial Hospital SystemStart: 08-14-2022 Alcohol CommentsocialCenterville SystemStart: 00-08-0684Rtt Assigned At BirthNot on fileCenterville SystemStart: 13-36-5317JdnAoqiio (finding) ProMKittson Memorial Hospital SystemStart: 35-68-0273Sqnrsa orientationBisexual (finding) [place] SystemTobacco smoking status NHISTobacco smoking consumption unknownSaint Luke's Health System Functional Status DcyrMaawqmqtnwNnplhtWdjrhwjo38-70-5958Qnhoaav Health Questionnaire 2 item (PHQ- 2) [Reported][facility] Health SystemAybrefpbmf08-65-5433JXM-7 quick depression assessment panel [Reported.PHQ][facility] Health SystemFpatiiccio13-82-8369Rox difficult have these problems made it for you to do your work, take care of things at home, or get along with other people?Very difficult 11/23/2024 11:27 AM EDT Shantell Ambrose LPN Very difficult [facility] SystemRkyfzrdmvi32-60-0700Ulgxrmw Health Questionnaire 2 item (PHQ-2) [Reported] [facility] SystemOabsmouapw74-52-4648Asjqvut Health Questionnaire 2 item (PHQ-2) [Reported] [facility] Work Phone: [facility] Clinical Notes 04-17-2023 to 02-02-2025 Note Date & WqkyLyulFbcpftia78-09-2271 History of Present illness Narrative* GENE Gutierrez [...] Diagnosis Date Noted 38 weeks gestation of ([facility]) 11/28/2023 Resolved Ambulatory Problems Diagnosis Date Noted [...] nursing note reviewed. Exam conducted with a skin care consultant present. Vitals: Estimated body mass index is 42.57 kg/m as calculated from the following: Height as of 08/08/22: 5' 6 . Weight as of this encounter: 263 lb 12 oz. BP: 130/84 No LMP recorded (lmp unknown). Patient is . Assessment/Plan ICD-10-CM 1. Third trimester ([facility]) Z34.93 POCT urinalysis dipstick manually resulted 2. 34 weeks gestation of ([facility]) Z3A.34 Return OB: Patient presents today for [...] behalf of: GENE Gutierrez documented in this encounterSaint Luke's Health SystemWstvithiae84-78-1863 History of Present illness Narrative* GENE Gutierrez [...] Diagnosis Date Noted 38 weeks gestation of ([facility]) 11/28/2023 Resolved Ambulatory Problems Diagnosis Date [...] ASSESSMENT & PLAN ICD-10-CM 1. Third trimester ([facility]) Z34.93 2. 32 weeks gestation of ([facility]) Z3A.32 POCT urinalysis dipstick manually resulted 3. [...] OF UTERUS TONSILLECTOMY 2011 documented in this encounterSaint Luke's Health SystemOljlvqwvzh96-17-8701 History of Present illness Narrative* Mag Samuels [...] Diagnosis Date Noted 38 weeks gestation of ([facility]) 11/28/2023 Resolved Ambulatory Problems Diagnosis Date Noted [...] nursing note reviewed. Exam conducted with a skin care consultant present. Vitals: Estimated body mass index is 41.22 kg/m as calculated from the following: Height as of 08/08/22: 5' 6 . Weight as of this encounter: 255 lb 6.4 oz. BP: 110/74 No LMP recorded (lmp unknown). Patient is . ASSESSMENT & PLAN ICD-10-CM 1. 30 weeks gestation of ([facility]) Z3A.30 POCT urinalysis dipstick manually resulted 2. Third trimester ([facility]) Z34.93 POCT urinalysis dipstick manually resulted 3. History of miscarriage Z87.59 4. Bipolar 1 disorder, depressed ([facility]) F31.9 5. Anxiety, generalized F41.1 Return OB: [...] of: Mag Samuels NP documented in this encounterSaint Luke's Health SystemKxcihphxwj51-70-5807 History of Present illness Narrative* GENE Gutierrez [...] Diagnosis Date Noted 38 weeks gestation of ([facility]) 11/28/2023 Resolved Ambulatory Problems Diagnosis Date Noted [...] ASSESSMENT & PLAN ICD-10-CM 1. Third trimester ([facility]) Z34.93 POCT urinalysis dipstick manually resulted 2. 28 weeks gestation of ([facility]) Z3A.28 Return OB: Patient presents today for [...] behalf of: GENE Gutierrez documented in this encounterSaint Luke's Health SystemGvrnenzrnx07-44-2237 NoteEducation Materials Pulmonary Medicine Acute Bronchitis, Adult [...] Follow these instructions at home: ? Take siir-vbb-togpbkq and prescription medicines only as told by [...] and water are not available, use hand underwater roboticist. ? Avoid contact with people who have [...] is easier to cough up. ? Take wmpo-wjl-hpfheum a (more content not included)...[facility] 12-13-2024 Miscellaneous Notes* Telephone Encounter - Alberta Mendez CMA - 12/13/2024 8:28 PM EDT Patient returned phone call. Advised patient of results per John's result note. Patient verbalized understanding. documented in this encounterOur [facility] Telephone encounter Note* Telephone Encounter - Alberta Mendez CMA - 12/13/2024 8:28 PM EDT Patient returned phone call. Advised patient of results per John's result note. Patient verbalized understanding. [facility]-05-[facility] Telephone encounter Note* Telephone Encounter - Zadia Tavares MA - 12/11/2024 11:56 AM EDT Pt called in stating seen at [facility] ER due to pain. [employer] Chill Technician their told her she possibly has kidney stones. Per latcher pt needs to discuss with dr. Marrero to see what he would like to do. Advised pt that Janes not in office today but will send message to get his thoughts. Please advise [facility] SystemYorbfwzful76-94-8724 Miscellaneous Notes* Telephone Encounter - Zaida Tavares MA - 12/11/2024 11:56 AM EDT Pt called in stating seen at [facility] ER due to pain. Cook Chill Technician their told her she possibly has kidney stones. Per latcher pt needs to discuss with dr. Marrero to see what he would like to do. Advised pt that Janes not in office today but will send message to get his thoughts. Please advise documented in this encounterNOSaint Luke's East HospitalOhohwrqhgj79-58-1347 NotePatient Education Materials Follows:Disease Upper Respiratory Infection, An upper respiratory [...] with other children, such as at child care provider or daycare. ? Your baby has: ? [...] at home: Medicines ? Give your baby qmqq-ckd-mvvqiox and prescription medicines only as told by [...] with Henok's syndrome. Relieving symptoms ? Use owtd-pbe-zotlzpx or homemade saline nasal drops, which are [...] and water are not available, use hand underwater roboticist. Other caregivers should also wash their hands [...] Your baby develops a (more content not included)...[facility] ColumbusEhcbdyax98-50-5493 History of Present illness Narrative* Shantell Ambrose [...] Diagnosis Date Noted 38 weeks gestation of ([facility]) 11/28/2023 Resolved Ambulatory Problems Diagnosis Date Noted [...] PLAN ICD-10-CM 1. 24 weeks gestation of ([facility]) Z3A.24 POCT urinalysis dipstick manually resulted 2. Second trimester ([facility]) Z34.92 POCT urinalysis dipstick manually resulted 3. [...] of: Robert Marrero DO documented in this encounterSaint Luke's Health SystemYghgbxtkzg81-39-6585 History of Present illness Narrative* GENE Gutierrez [...] Diagnosis Date Noted 38 weeks gestation of ([facility]) 11/28/2023 Resolved Ambulatory Problems Diagnosis Date Noted [...] PLAN ICD-10-CM 1. 20 weeks gestation of ([facility]) Z3A.20 POCT urinalysis dipstick manually resulted 2. Second trimester ([facility]) Z34.92 POCT urinalysis dipstick manually resulted Return [...] behalf of: GENE Gutierrez documented in this encounterSaint Luke's Health SystemXguyfzqter11-02-4337 NoteXR CHEST 1 VW History: Near syncope Procedure: Chest AP portable upright Comparison: 04/22/2024 Findings: The heart and lungs show no acute findings, and the mediastinum and anushka are grossly negative . No pneumothorax. Impression: No acute pulmonary process. Finalized by Angela Baker MD on 10/15/2024 1:51 PMPKettering Health Troy 10-05-2024 History of Present illness Narrative* Mag [...] Diagnosis Date Noted 38 weeks gestation of ([facility]) 11/28/2023 Resolved Ambulatory Problems Diagnosis Date Noted [...] nursing note reviewed. Exam conducted with a skin care consultant present. Vitals: Estimated body mass index is 40.51 kg/m as calculated from the following: Height as of 08/08/22: 5' 6 . Weight as of this encounter: 251 lb. BP: 124/78 No LMP recorded (lmp unknown). Patient is . ASSESSMENT & PLAN ICD-10-CM 1. Second trimester ([facility]) Z34.92 POCT urinalysis dipstick manually resulted 2. 17 weeks gestation of ([facility]) Z3A.17 3. Well woman exam with routine gynecological exam Z01.419 Pap Smear 4. Exposure to STD Z20.2 SURESWAB(R) ADVANCED VAGINITIS PLUS, TMA CHLAMYDIA TRACHOMATIS (GENITO/STI) Neisseria gonorrhea DNA probe, direct 5. Need for maternal serum alpha-protein (MSAFP) screening ([facility]) Z36.1 Alpha fetoprotein, maternal Alpha fetoprotein, maternal 6. Screening, , for anatomic survey ([facility]) Z36.89 US OB 14+ weeks anatomy scan [...] of: Robert Marrero DO documented in this encounterSaint Luke's Health SystemHoegwheccl02-23-8806 NotePatient Education Materials Follows:Disease Upper Respiratory Infection, [...] to help relieve symptoms, such as: ? Xbrf-rzd-ueaxlkg cold medicines. ? Medicines to reduce coughing [...] other clear broths. General instructions ? Take mwib-rmz-cxdhxhw and prescription medicines only as told by [...] cannot use soap and water, use hand underwater roboticist. ? Avoid touching your mouth, face, eyes, [...] get better within 7?10 days. ? Take wete-xvn-jhkgdjv and prescription medicines only as told by your doctor. This information is not intended to replace advice given to (more content not included)...[facility] ColumbusGpmjgxxu24-70-5318 History of Present illness Narrative* Mag Samuels, [...] History: Diagnosis Date Bacterial vaginosis Chlamydia Depression ([facility]) Family history of breast cancer Family history of uterine cancer HISTORY PAST MEDICAL HISTORY SOCIAL HISTORY Past Medical History: Diagnosis Date Bacterial vaginosis Chlamydia Depression ([facility]) Family history of breast cancer Family [...] nursing note reviewed. Exam conducted with a skin care consultant present. Vitals: Estimated body mass index is [...] of: Robert Marrero DO documented in this encounterSaint Luke's Health SystemJxqxqjaetu66-94-4723 NoteEducation Materials Obstetrics and Gynecology Morning Sickness [...] provider. ? Do not use any prescription, fwua-qav-jymhycp, or herbal medicines for morning sickness without [...] to throw up. Foods to avoid ? [place] foods. ? Fatty foods. ? Spicy foods. [...] body to make you feel better. ? [place] your teeth after throwing up or rinse [...] provider. Document Revised: 12/26/2023 Document Reviewed: 07/04/2023 [employer] Patient Education ? 2023 [employer].[facility] ColumbusBembczlq18-78-0187 History of Present illness Narrative* Zaida Tavares [...] History: Diagnosis Date Bacterial vaginosis Chlamydia Depression ([facility]) Family history of breast cancer Family history [...] or undercooked meat, and stay away from [facility]. Patient has also been advised to [...] by: Zaida Tavares MA documented in this encounterSaint Luke's Health SystemZwxfzkrngc01-25-2783 NoteEducation Materials Orthopedics Flank Pain, Adult Flank [...] as told by your doctor. ? Take hvmr-ejp-njieozh and prescription medicines only as told by [...] provider. Document Revised: 06/05/2021 Document Reviewed: 06/05/2021 [employer] Patient Education ? 2023 [facility] Note Education Materials Infectious Disease Influenza, Adult [...] doctor may want you to: ? Take yhni-chh-qdsfkbz medicines. ? Drink plenty of fluids. The [...] Applesauce. ? Rice. ? Lean meats. ? [place]lysian. ? Crackers. ? Do not eat or drink: ? Fluids that have a lot of sugar or caffeine. ? Alcohol. ? Spicy or fatty foods. General instructions ? Take iwzt-rby-lbvtmfp and prescription medicines only as told by [...] use soap and water, use alcohol-based hand underwater roboticist. ? Keep all follow-up visits. How is [...] the hospital. Summary ? (more content not included)...[facility] ColumbusCitclmek63-62-0486 NoteEducation Materials Obstetrics and Gynecology Bacterial Vaginosis [...] these instructions at home: Medicines ? Take czpv-eax-clrquyf and prescription medicines as told by your [...] for Disease Control and Prevention: www.cdc.gov ? [employer]: www.ashastd.org ? Office on [...] provider. Document Revised: 09/22/2020 Document Reviewed: 09/22/2020 [employer] Patient Education ? 2023 [employer]. Orthopedics Acute Back Pain, Adult Acute back pain is sudden and usually short-lived. It is often caused by an injury to the muscles and tissues in the back. The injury may resul (more content not included)...[facility] ColumbusBkuoroxb91-98-8796 NotePatient Education Materials Follows:Disease Upper Respiratory Infection, [...] to help relieve symptoms, such as: ? Fjpk-vvv-vuwzpcr cold medicines. ? Cough suppressants. Coughing is [...] other clear broths. General instructions ? Take bxhv-qow-nuweelv and prescription medicines only as told by [...] soap and water are not available,use hand underwater roboticist. ? Avoid touching your mouth, face, eyes, [...] Mood. These symptoms may (more content not included)...[facility] ColumbusDygqyule59-59-1475 History of Present illness Narrative* GENE Gutierrez [...] History: Diagnosis Date Bacterial vaginosis Chlamydia Depression ([facility]) Family history of breast cancer Family history of uterine cancer HISTORY PAST MEDICAL HISTORY SOCIAL HISTORY Past Medical History: Diagnosis Date Bacterial vaginosis Chlamydia Depression ([facility]) Family history of breast cancer Family [...] nursing note reviewed. Exam conducted with a skin care consultant present. Vitals: Estimated body mass index is [...] behalf of: GENE Gutierrez documented in this encounterSaint Luke's Health SystemDhuoxfwuly56-30-6212 History of Present illness Narrative* Shantell Ambrose, FERRYBOAT DECKHAND - 11/28/2023 8:30 AM EDT Reason for [...] History: Diagnosis Date Bacterial vaginosis Chlamydia Depression ([facility]) Family history of breast cancer Family history of uterine cancer HISTORY PAST MEDICAL HISTORY SOCIAL HISTORY Past Medical History: Diagnosis Date Bacterial vaginosis Chlamydia Depression ([facility]) Family history of breast cancer Family [...] nursing note reviewed. Exam conducted with a skin care consultant present. Vitals: Estimated body mass index is [...] of: Robert Marrero DO documented in this encounterSaint Luke's Health SystemXroxutyxhs37-96-0040 History of Present illness Narrative* Leah Hernandez RN - 05/07/2023 10:51 AM EST Letter sent to patient via [facility] and also to her My Chart regarding her missed OB intake appointment and also her MICHAEL for her Chlamydia. documented in this encounterOur [facility] of [facility]01-12-2024 Miscellaneous Notes* Telephone Encounter - Leah Hernandez RN - 04/19/2023 3:28 PM EST Called patient to reschedule her IOB intake visit. No answer. Left message to call office to reschedule her appointment. [facility] Tele[facility] encounter Note* Telephone Encounter - Leah Hernandez RN - 04/19/2023 3:28 PM EST Called patient to reschedule her IOB intake visit. No answer. Left message to call office to reschedule her appointment. [facility] Miscellaneous Notes* Telephone Encounter - Leah Hernandez RN - 04/17/2023 8:28 AM EST Patient called for her OB intake per phone. No answer. Left message to call office. documented in [facility] encounterOur [facility] Telephone encounter Note* Telephone Encounter - Leah Hernandez RN - 04/17/2023 8:28 AM EST Patient called for her OB intake per phone. No answer. Left message to call office. [facility] noteNo assessment information available [facility] Work Phone: Evaluation note* Diagnosis 6 weeks follow-up [facility]* Diagnosis Third trimester state, incidental 38 weeks gestation of documented in this [facility]* Diagnosis Nausea and vomiting during - Primary documented in this encounter [facility] [facility]* Diagnosis Missed menses , unspecified [...] Need for maternal serum alpha-protein (MSAFP) screening ([facility]) Screening, , for anatomic survey ([facility]) Encounter for anatomic survey SOB (shortness of breath) Shortness of breath Dizziness Dizziness and giddiness documented [facility] this [facility]* Diagnosis 20 weeks gestation of ([facility]) Second trimester ([facility]) state, incidental documented in this encounter [facility] [...] encounter [facility] HealthcareInstructionsNot on filedocumented in this encounterProMediCleveland Clinic SystemInstructionsNot on filedocumented in this encounterProMediCleveland Clinic System Chief Complaint and Reason for Visit [...] MemberRelationshipSpecialtyStart DateEnd Date Nano Back PA [address] [facility] [place] [address]05/01[facility] MemberRelationshipSpecialtyStart DateEnd Date [facility] [address] [place], [place] PCP - [facility]08/11/18Te MemberRelationshipSpecialtyStart DateEnd Date [facility] [address] [place], [place] PCP - [facility]08/11/18Te MemberRelationshipSpecialtyStart DateEnd [facility] [address] [place], [place] PCP - [facility]08/11/18[facility] MemberRelationshipSpecialtyStart DateEnd Date Nano Back PA [address] [facility] [address] [place], [facility] [place] [address] MemberRelationshipSpecialtyStart DateEnd Date Nano Back PA [address] [facility] [place] [address]05/01Te MemberRelationshipSpecialtyStart DateEnd Date Nano Back PA [address] [facility] [place] [address]05/01[facility] MemberRelationshipSpecialtyStart DateEnd Date Nano Back PA [address] [facility] [address] [place], [place] [id number] [facility]01/07/24Team MemberRelationshipSpecialtyStart DateEnd Date Nano Back PA [address] [facility] [address] [place], [place] [id number] [facility]01/07/24Te MemberRelationshipSpecialtyStart DateEnd Date Nano Back PA [address] [facility] [place] [address] [facility]01/07/24Te MemberRelationshipSpecialtyStart DateEnd Date Nano Back PA [address] [facility] [place] [address] [facility]01/07/24Te MemberRelationshipSpecialtyStart DateEnd Date Nano Back PA [address] [place] [address] [place] [address] [facility]01/07/24Team MemberRelationshipSpecialtyStart DateEnd Date [facility], [place] [id number] [place], [place] [facility]/24Team MemberRelationshipSpecialtyStart DateEnd Date Nano Back PA [address] [place] [address] [place] [address] [facility]01/07/24Team MemberRelationshipSpecialtyStart DateEnd Date Nano Back PA [address] [facility] [address] [place], [place] [phone] [place] [address]Te MemberRelationshipSpecialtyStart DateEnd Date Nano Back PA [address] [facility] [place] [address] [address]05/01Te MemberRelationshipSpecialtyStart DateEnd Date Nano Back PA [address] [facility] [address] [place], [facility] [address]05/01Te MemberRelationshipSpecialtyStart DateEnd Date Nano Back PA [address] [facility] [place] [address] [facility]01/07/24 Goals (unrecognized section and content) Goals may be documented in a n alternate sectionNot on filedocumented as of this encounterNot on filedocumented as of this encounterNot on filedocumented as of this encounterNot on filedocumented as of this encounterNot on filedocumented as of this encounter INFORMATION SOURCE (unrecogn ized section and content) DATE CREATED AUTHOR 07/27/2021 [facility] DATE CREATED AUTHOR AUTHOR'S ORGANIZ ATION 08/16/2022 [facility] DATE CREATED AUTHOR AUTHOR'S ORGANIZ ATION 12/13/2024 [facility] DATE CREATED AUTHOR AUTHOR'S ORGANIZ ATION 01/12/2025 [facility] DATE CREATED AUTHOR AUTHOR'S ORGANIZ ATION 02/03/2025 [facility] EPIC Reason for Visit [...] BE BASED ON THE PRIMARY CLINICAL RECORDS. [facility]. provides no warranty or guarantee of the accuracy or completeness of information in this document.
--- OUTSIDE RECORDS SUMMARY | 2025-03-10 04:57 | XMS_ITS | Clinical Summary ---
Author Organization [id number] [facility] tem Address [id number] [address] [place] [address] Care Team Providers Care Architectural Design Lecturer Name Role Phone [facility], [facility] Primary Care Provider Allergies Active AllergyReactionsCriticalityNoted DateCommentsAzithromycinNausea And ThinmnfqRpwqib65/14/2022 [facility] UrfjlxlcDtkckCap81/20/2023 PEELING SKIN MetronidazoleNausea And JowevtkgObxmtx60/04/2024 [facility] Medications MedicationSigDispense QuantityRefillsLast FilledStart [...] capsule 5Active Active Problems Estimated Date of YmqdfhzxIxpcsdqnGlo81/07/2025Based on last menstrual period of 06/07/2024 (Approximate) No known active problems Encounters DateTypeDepartmentCare OqmeDcoqbpgyvvl37/07/2025Results Follow-Up [facility] [address] [place] [address] Naima Salcedo APRN-CNM Urine Culture Urine, Clean Catch Midstream, Vaginitis Panel PCR, Chlamydia/GC by PCR Bisi Swab12/10/2024 4:36 PM EDT - 12/10/2024 8:10 PM EDTHospital Encounter [facility] [address] [place] [address] Naima Salcedo APRN-CNM Alicia Garcia MD Discharge [...] as a part of a household?No12/10/2024hildcareAnswer Date RglisyghUouogmmiaPgpekmw45/12/2019EmploymentAnswerDate RecordedEmployment Jdcbdlw8309/17/2018Hunger ScreeningAnswerDate RecordedWithin the past 12 months we worried whether our food would run out before we got money to buy more.Never True12/10/2024Within the past 12 months the food we bought just didn't last and we didn't have money to get more.Never True12/10/2024Purpose - LifeAnswerDate RecordedPurpose and direction in pmtrFvstmth93/11/2021Estimated Date of SudwhwxbGaractgbUmy05/07/2025Based on last menstrual period of 06/07/2024 (Approximate)Sex and Gender InformationValueDate RecordedSex Assigned at Not on fileLegal IuuUdvrtd15/06/2015 12:06 PM EDTGender IdentityNot on file Sexual YopkuldvbydRnkysksl44/23/2024 3:24 PM EDT Last Filed Vital Signs Vital SignReadingTime TakenCommentsBlood Ehszcsdg774/5909 5:00 PM EDT Qvgjq4496/04/2025 5:00 PM DWJFkkyrpwmumq78 ??C (98.6 ??F)12/10/2024 5:00 PM EDT Respiratory Hvpj796912/10/2024 5:00 PM EDTOxygen Oybbgtgxzl852%10/15/2024 3:15 PM EDTInhaled Oxygen Concentration--Osdlrd998.4 kg (250 lb)10/15/2024 12:39 PM EDT Qchghq390.2 cm (5' 7 )08/03/2024 11:49 AM EDTBody Mass Index39.16008/03/2024 11:49 AM EDT Plan of Treatment Health MaintenanceDue DateLast DoneCommentsDepression Mzbqnmpad14/02/2014dult BMI Follow Up Plan10/08/2019Influenza Enqxfbh59/01/2025Adult BMI Screening Tobacco Tswgrwkdm225Chlamydia Screening /07/2024, 05/01/2024, 3Pap Smear/, 4DTaP,Tdap and Td Vaccines (2 - Td or Tdap)RSV ( or age 60+ yrs) (No Doses Required)Completed Medical Devices Not on file Procedures Procedure NamePriorityDate/TimeAssociated DiagnosisCommentsURINALYSISSTAT 12/10/2024 7:06 PM EDT CHLAMYDIA/GC BY PCR BISI OOERZenizoh53/04/2025 5:36 PM EDT VAGINITIS PANEL AMGMBFE3912/10/2024 5:36 PM EDT URINE XPWUPAGBxgxqwd19/04/2025 5:36 PM EDT from Last 3 Months Results * (ABNORMAL) Urinalysis (12/10/2024 7:06 PM EDT)ComponentValueRef RangeTest MethodAnalysis TimePerformed AtPathologist SignatureCOLORYellowYellow 12/10/2024 7:36 PM EDTPPREMIER HEALTHTURBIDITYClearClear 12/10/2024 7:36 PM EDTPAVITA HEALTH SYSTEM BUCYRUS HOSPITALPECIFIC GRAVITY1.010 1.003 - 1.05208 7:36 PM EDGEORGETOWN BEHAVIORAL HOSPITALNITRITE GwadqomoNoyxwpqk63/04/2025 7:36 PM EDTPPREMIER HEALTH PH,URINE6.55.0 - 8.509 7:36 PM EDGEORGETOWN BEHAVIORAL HOSPITAL LEUKOCYTE HOIIDMUVUljhoqjaVihugvck81/04/2025 7:36 PM EDTPPREMIER HEALTHPROTEINNegativeNegative12/10/2024 7:36 PM EDTPPREMIER HEALTHKETONES (URINE)XwsncccxTbquyxiu66/04/2025 7:36 PM EDT [facility]UROBILINOGEN1.0 eu/dL0.2 eu/dL, 1.0 eu/dL 12/10/2024 7:36 PM EDTPPREMIER HEALTHBILIRUBIN (URINE) SlrnynvhNmkiboks19/04/2025 7:36 PM [facility] BLOOD/HGBSmall(A)Ehlkdqei38/04/2025 7:36 PM EDTPPREMIER HEALTHCA OXALATE CRYSTALSPresent(A)None12/10/2024 7:36 PM EDGEORGETOWN BEHAVIORAL HOSPITALR.B.CELLS - 7:36 PM EDKETTERING HEALTHQUAMOUS FYMDBUOAMN78 - 7:36 PM EDT [facility] J[facility]SONW.B.CELLS10 7:36 PM EDT [facility] JACKSONGLUCOSE (URINE)NegativeNegative, 250 mg/dL 12/10/2024 7:36 PM EDKETTERING HEALTHpecimen (Source) Anatomical Location / LateralityCollection Method / VolumeCollection Time Received TimeUrineUrine specimen collection, clean catch / Cndkpak0012/10/2024 7:06 PM EDT12/10/2024 7:12 PM EDT Narrative Authorizing ProviderResult TypeResult StatusChelsea Matias ARCHITECT NAVAL-CNMURINE ORDERABLESFinal ResultPerforming OrganizationAddressCity/State/ZIP CodePhone Number [facility] [address] [place] [address], * Chlamydia/GC by PCR Bisi Swab (12/10/2024 5:36 PM EDT)ComponentValueRef Range Test MethodAnalysis TimePerformed AtPathologist SignatureCHLAMYDIA DNA(PCR) PwytuateWgmntruw55/05/2025 10:32 AM [facility] Comment:Chlamydia trachomatis not detected by nucleic acid amplification. This does not exclude the possibility of infection because results are dependent on adequate specimen collection.GONORRHOEAE DNA(PCR)GjqkzujaNozzerqm91/05/2025 10:32 AM [facility]Comment:Neisseria gonorrhoeae not detected by nucleic acid amplification. This does not exclude the possibil ity of infection because results are dependent on adequate specimen collection.Specimen (Source)Anatomical Location / LateralityCollection Method / VolumeCollection TimeReceived TimeSwabVaginal structure / Axxdjdd0512/10/2024 5:36 PM EDT12/10/2024 6:00 PM EDT Narrative Authorizing ProviderResult TypeResult StatusChelsterry Salcedo APRN-CNMMICROBIOLOGY - GENERAL ORDERABLESFinal ResultPerforming OrganizationAddressCity/State/ZIP Code Phone Number [facility] [address] [place] [address], * Vaginitis Panel PCR (12/10/2024 5:36 PM EDT)ComponentValueRef RangeTest Method Analysis TimePerformed AtPathologist SignatureBACT. VAGINOSIS DNANot Detected Not Cbqjewix95/05/2025 5:14 PM [facility]Comment: Qualitative results are reported based on detection and quantitation of targeted organism markers which include: Lactobacillus spp. (L. crispatus and L. jensenii), Gardnerella vaginalis, Atopobium vaginae, Bacterial Vaginosis Associated Bacteria-2 (BVAB-2) and Megasphaera-1.LESA SPECIES DNANot DetectedNot Bnlzmaxa61/05/2025 5:14 PM [facility] Comment:Lesa species not detected include: C. albicans, C. tropicalis, C. parapsilosis or C. dubliniensis.LESA KRUSEI DNANot DetectedNot Detected 12/11/2024 5:14 PM [facility]ORYComment:No Lesa krusei detected.LESA GLABRATA DNANot DetectedNot Qavfjnjy33/05/2025 5:14 PM [facility]Comment:No Lesa glabrata detected. TRICHOMONAS VAG DNANot DetectedNot Eqkuzgbh64/05/2025 5:14 PM [facility]Comment: No Trichomonas vaginalis detected. BD MAX Vaginal Panel has not been evaluated for patients under 18 years old. Results for these patients should be reviewed and assessed in accordance with clinical presentation to determine patient diagnosis. Specimen (Source)Anatomical Location / LateralityCollection Method / Volume Collection TimeReceived TimeSwabVaginal structure / Dfhjbec5112/10/2024 5:36 PM EDT12/10/2024 6:00 PM EDT Narrative Authorizing ProviderResult TypeResult StatusChebird Salcedo APRN-CNMMICROBIOLOGY - GENERAL ORDERABLESFinal ResultPerforming OrganizationAddressCity/State/ZIP Code Phone Number [facility] [address] [place] [address], * Urine Culture Urine, Clean Catch Midstream (12/10/2024 5:36 PM EDT)Component ValueRef RangeTest MethodAnalysis TimePerformed AtPathologist SignatureCULTURE QTNCJUZ80-88,000 ORGANISMS/mL NORMAL UROGENITAL FLORA12/11/2024 7:[address] [facility] LABORATORYSpecimen (Source)Anatomical Location / LateralityCollection Method / VolumeCollection TimeReceived TimeUrineUrine specimen collection, clean catch / Drnizwu2412/10/2024 5:36 PM EDT12/10/2024 6:00 PM EDT Narrative Authorizing ProviderResult TypeResult StatusChebird Salcedo APRN-CNMMICROBIOLOGY - GENERAL ORDERABLESFinal ResultPerforming OrganizationAddressCity/State/ZIP Code Phone Number [facility] [address] [place] [address], from Last 3 Months Insurance Advance Directives * Full Code (Latest Code Status on File) Date ActivatedDate InactivatedComments07/30/2023 4:35 PM07/30/2023 7:06 PM Care Teams Team MemberRelationshipSpecialtyStart DateEnd Date Services, [facility] [address] [place], [place] PCP - GeneralFamily Medicine10/15/24
--- OUTSIDE RECORDS SUMMARY | 2025-03-10 04:57 | XMS_ITS | Encounter Summary ---
Author Organization [facility] Address [address] [place] [address] Care Team Providers Care Aviation Support Equipment Repairer Name Role Phone Nano Back Unavailable Encounter Details DateTypeDepartmentCare Team (Latest Contact Info)Bwrjuajgpue22/26/2025Patient Outreach [facility] [address] [place] [address] Nano Melendez LPN [address] [place] [address] Social History Tobacco UseTypesPacks/DayYears UsedDateSmoking Tobacco: NeverSmokeless Tobacco: NeverAlcohol UseStandard Drinks/WeekCommentsNot Currently3 (1 standard drink = 0.6 oz pure alcohol)PHQ-2AnswerDate RecordedPatient Health Questionnaire-2 Score 6011/23/2024Estimated Date of EzscycgqAhxwpgvrPwy07/07/2025Based on UltrasoundSex and Gender InformationValueDate RecordedSex Assigned at Eesnow3505/01/2023 12:34 PM ESTLegal UruObxlcs27/15/2023 6:38 PM EDTGender SfvudsfiLfrnmp14/24/2024 12:34 PM ESTSexual GdpssapgvuiDivjvoic36/24/2024 12:34 PM ESTdocumented as of this encounter Progress Notes * Nano Melendez LPN - 03/03/2025 9:39 AM EST Monthly Outreach. Call to pt X2, LVM. MyChart communication sent. documented in this encounter Plan of Treatment Not on file documented as of this encounter Visit Diagnoses Not on filedocumented in this encounter Additional Health Concerns AssessmentNoted TimePHQ-9 Depression Total Score: 11:27 AM EDT documented as of this encounter Care Teams Team MemberRelationshipSpecialtyStart DateEnd Date Nano Back PA [address] [place] [address] [place] [address] PCP - [facility]01/07/24documented as of this encounter
[2025-03-10 05:39] LABS: Hematocrit 33.1 % (36.0-48.0); Hemoglobin 10.5 g/dL (12.0-16.0); Mean Corpuscular HGB Conc 31.7 g/dL (29.9-35.2); Mean Corpuscular Hemoglobin 24.4 pg (26.7-34.0); Mean Corpuscular Volume 77.0 fL (81.0-99.0); Platelet Count 371 10^3/uL (150-450); Red Blood Count 4.30 10^6/uL (4.20-5.40); White Blood Count 13.8 10^3/uL (4.0-11.0)
[2025-03-10 05:48] LABS: Cannabinoid Screen Urine NEGATIVE (NEGATIVE); Methamphetamines Screen Urine NEGATIVE (NEGATIVE); Tricyclic Antidepressant Urine NEGATIVE (NEGATIVE)
[2025-03-10] MEDS: 0.9 % SODIUM CHLORIDE 1,000 ML 125 ML IV ×2 (06:04→13:41)
[2025-03-10] MEDS: OXYTOCIN/0.9 % SODIUM CHLORIDE 10 UNITS/500 ML PLAST..BAG 6 UNIT IV (06:05)
[2025-03-10] MEDS: 0.9 % SODIUM CHLORIDE 1,000 ML 1000 ML IV (11:28)
[2025-03-10] MEDS: ROPIVACAINE HCL/PF 400 MG/200 ML PREMIX 6 MG EPIDURAL (11:47)
[2025-03-10] MEDS: OXYTOCIN/0.9 % SODIUM CHLORIDE 20 UNITS/1,000 ML PLAST..BAG 125 UNIT IV (15:10)
--- NOTE | 2025-03-10 15:14 | PM.OBPRCVD ---
Procedure Intrapartal events: None Induction method: per pitocin protocol Delivery augmentation: rupture of membranes and pitocin Delivery monitor: external FHT and external uterine Route of delivery: Episiotomy Description: none L&D Laceration Description: none Estimated blood loss (mL): 200 Anesthesia type: Epidural Disposition: floor Delivery date: 03/10/25 Gender: female presentation: vertex Placental delivery description: Spontaneous cord description: 3 Vessels
[2025-03-10] MEDS: IBUPROFEN 600 MG TABLET PO (18:04)
[2025-03-10] MEDS: ACETAMINOPHEN 325 MG TABLET 650 MG PO (20:23)
[2025-03-11 00:21] VITALS: BP 123/68; PULSE 72; TEMP 36.7
[2025-03-11] MEDS: IBUPROFEN 600 MG TABLET PO ×3 (00:21→21:06)
[2025-03-11 00:22] VITALS: BP 123/68; PULSE 72
[2025-03-11 06:15] LABS: Hematocrit 31.9 % (36.0-48.0); Hemoglobin 9.9 g/dL (12.0-16.0); Immature Granulocytes Abs Auto 0.15 10^3/uL (0.00-0.03); Immature Granulocytes Pct Auto 1.1 % (0.0-0.5); Lymphocytes Absolute Auto 3.8 10^3/uL (1.2-3.8); Mean Corpuscular HGB Conc 31.0 g/dL (29.9-35.2); Mean Corpuscular Hemoglobin 24.2 pg (26.7-34.0); Mean Corpuscular Volume 78.0 fL (81.0-99.0); Platelet Count 330 10^3/uL (150-450); Red Blood Count 4.09 10^6/uL (4.20-5.40); White Blood Count 14.1 10^3/uL (4.0-11.0)
--- NOTE | 2025-03-11 09:05 | PM.OBPN ---
OB - PN: Subj Subjective Patient comments: no complaints and pain well controlled status: doing well Exam Constitutional Vital Signs, click to edit/add: Last Vital Signs Temp 98.1 F 03/11/25 00:21 Pulse 72 03/11/25 00:22 Resp 18 03/11/25 00:21 BP 123/68 03/11/25 00:22 O2 Del Method Room Air 03/11/25 00:25 Documenting provider has reviewed patient's vital signs: yes Common normals: no apparent distress Respiratory Common normals: normal respiratory effort and clear to auscultation bilaterally Cardio Common normals: regular rate and regular rhythm GI Common normals: Normal to inspection, nondistended, normoactive bowel sounds present Extremity Common normals: no clubbing, cyanosis or edema and no calf tenderness Results Labs Labs: Short CBC 03/11/25 Range/Units 06:07 WBC 14.1 H (4.0-11.0) 10^3/uL Hgb 9.9 L (12.0-16.0) g/dL Hct 31.9 L (36.0-48.0) % Plt Count 330 (150-450) 10^3/uL OB - PN: A/P Plan - Vaginal Delivery day: 1 Plan: routine care, discharge home and follow up 6 weeks Time Spent with Patient Time: Total time spent is greater than 50% in coordination of care (as documented) at patient's floor/unit and/or counseling patient: Total time spent with greater than 50% in coordination of care (as documented) at patient's floor/unit and/or counseling patient: less than 15 minutes
[2025-03-11 09:30] VITALS: PULSE 82; TEMP 36.9
[2025-03-11] MEDS: DOCUSATE SODIUM 100 MG CAPSULE PO ×2 (09:30→21:05)
[2025-03-11 12:36] VITALS: BP 117/55; PULSE 86
[2025-03-11 23:47] VITALS: BP 114/55; PULSE 86; TEMP 36.9
[2025-03-12] MEDS: IBUPROFEN 600 MG TABLET PO (05:40)
[2025-03-12 07:29] VITALS: BP 123/59; PULSE 71
[2025-03-12 07:30] VITALS: BP 123/59; PULSE 71; TEMP 36.8
--- NOTE | 2025-03-12 08:09 | P.OBPN_ITS ---
OB - PN: Subj Subjective Patient comments: no complaints and pain well controlled [place] status: doing well Exam Constitutional Vital Signs, click to edit/add: Last Vital Signs Temp 98.5 F 03/11/25 23:47 Pulse 71 03/12/25 07:29 Resp 18 03/11/25 09:30 BP 123/59 03/12/25 07:29 O2 Del Method Room Air 03/11/25 23:40 Documenting provider has reviewed patient's vital signs: yes Common normals: no apparent distress Respiratory Common normals: normal respiratory effort and clear to auscultation bilaterally Cardio Common normals: regular rate and regular rhythm GI Common normals: Normal to inspection, nondistended, normoactive bowel sounds present Extremity Common normals: normal to inspection and no calf tenderness OB - PN: A/P Plan - Vaginal Delivery day: 2 Plan: routine care, discharge home and follow up 6 weeks Time Spent with Patient Time: Total time spent is greater than 50% in coordination of care (as documented) at patient's floor/unit and/or counseling patient: Total time spent with greater than 50% in coordination of care (as documented) at patient's floor/unit and/or counseling patient: less than 15 minutes
== END 2025-03-12 12:50 | disposition home or self-care (01) | DRG 560 ==
PROVIDERS: Admitting Provider Obstetrics & Gynecology; Visit Provider Obstetrics & Gynecology
DX: O80 Encounter for full-term uncomplicated delivery (principal); Z3A.39 39 weeks gestation of pregnancy; Z37.0 Single live birth; Z87.440 Personal history of urinary (tract) infections
CPT/HCPCS: 36415; 51702; 59050; 59410; 80307; 85025; 85027; 86850; 86900; 86901; J2405; J2795